=== PATIENT | male | born 1960 | race Caucasian/White ===

== ENCOUNTER 2022-12-23 06:54 | Day surgery (SDC) | payer MEDICARE, SELFPAY ==
[2022-12-23 07:16] VITALS: BP 132/72; PULSE 87; RESP 16; TEMP 36.7; O2SAT 97
--- NOTE | 2022-12-23 07:44 | W.PM.PROCNOT ---
Date of procedure: 12/23/22 Procedure: Left Lumbar 1/2 & 2/3 facet injection Preop diagnosis includes pain secondary to lumbar spondylosis, Postop diagnosis same Under fluoroscopic guidance Solution injected: 2millilitersMarcaine 0.25% Anesthesia :none Immediate complications none Time out process compliant After informed consent obtained from the patient placed in the Prone proposition . area was prepped and draped in a sterile fashion using betadine. 25 gauge spinal needle inserted over each of the above mentioned target areas . [place] were directed towards the target under fluoroscopic guidance . after encountering each of the targets , no indication of intravascular intraneuronal or intrathecal needle tip placement. Then 0 .5 to 1 Milliliter was injected at each level. Spindale removed postoperatively. patient transferred to recovery in stable condition to be discharged home after meeting criteria Surgeon: Luis Antonio Brewer
[2022-12-23 08:14] VITALS: BP 126/79; PULSE 88; RESP 20; O2SAT 92
[2022-12-23] MEDS: BUPIVACAINE HCL 0.25% PF 25 MG/10 ML VIAL INJ (08:17)
[2022-12-23 08:18] VITALS: BP 124/62; PULSE 89; O2SAT 95
== END 2022-12-23 08:20 | disposition home or self-care (01) ==
PROVIDERS: PCP Family Medicine; Visit Provider Anesthesiology Pain Medicine
DX: M47.816 Spondylosis without myelopathy or radiculopathy, lumbar region (principal)
CPT/HCPCS: 64493; 64494

== ENCOUNTER 2023-01-06 14:01 | Outpatient (OUT) | payer MEDICARE, SELFPAY ==
--- NOTE | 2023-01-06 17:58 | CONS_ITS ---
CONSULTATION DATE: ??01/06/2023 TO:? Socrates Valdovinos D.O. HISTORY:? Patient returns today complaining of pain in his left lower back area, described as 7/10 pain, sharp in character, increased with activities such as standing, walking and performing transitioning maneuvers.? Patient feels most comfortable in the semi-recumbent position.? Denies any change in bowel and bladder habits or new sensorimotor changes in the lower extremities. EXAM:? Notable for patient having no clinical radiculopathy or myelopathy involving the lower extremities.? Patient did have severe pain with lumbar facet loading maneuvers on the left side from L1 through L5, most severe at L1-2, L3- 4.? Patient has undergone two diagnostic medial branch blocks, corresponding to the L1-2, L3-4 levels, both offered him reduction in pain symptoms by at least 80-90% starting in the immediate post procedural period, lasting for several hours, with recurrence of pain back to his baseline.? RECOMMENDATIONS:? I have recommended proceeding with a rhizotomy using radiofrequency ablation of left L1-2, L3-4 corresponding levels.? I have also asked him to continue with the current dose of [place] 5 mg t.i.d.? He reports the medication does improve his quality of life, level of functioning and sleep pattern, and he denies any side effects with the use of the medication.? He appears to be using the medication appropriately without any acceleration. As part of providing excellent, safe, comprehensive care, the following was completed at our patient's visit: 1. A medication reconciliation and review to ensure accurate knowledge of current/active medications, including asking our patients to inform us about any wlqj-aaj-swrbchn medications or herbal remedies/nutritional supplements/alternative remedies. 2. A review to specifically ensure our patients have had annual screening for: elevated body mass index (BMI, see intake chart for exact total), tobacco use, screening for depression, and screening for unhealthy alcohol use.? When screening is concerning, patients are provided with education and the specific recommendation to discuss the concerning health issue and treatment options with their primary care provider. ASHLEY
== END 2023-01-06 14:02 | disposition home or self-care (01) ==
LOC: PM 14:02
PROVIDERS: PCP Family Medicine; Visit Provider Nurse Practitioner
DX: M54.50 Low back pain, unspecified (principal)
CPT/HCPCS: G0463

== ENCOUNTER 2023-02-23 08:25 | Day surgery (SDC) | payer MEDICARE, SELFPAY ==
[2023-02-23 08:42] VITALS: BP 109/65; PULSE 85; RESP 16; TEMP 36.2; O2SAT 94
[2023-02-23] MEDS: 0.9 % SODIUM CHLORIDE 500 ML 50 ML IV (08:52)
[2023-02-23] MEDS: LIDOCAINE HCL 2% 400 MG/20 ML MDV 15 ML INJ (09:41)
[2023-02-23] MEDS: BUPIVACAINE HCL 0.25% PF 25 MG/10 ML VIAL 4 ML INJ (09:41)
[2023-02-23] MEDS: TRIAMCINOLONE ACETONIDE 40 MG/ML VIAL INJ (09:42)
--- NOTE | 2023-02-23 09:48 | P.ON_ITS ---
Date of procedure: 02/23/23 Pre-op diagnosis: Lumbar spondylosis Post-op diagnosis: same as pre-op Procedure: Procedure: Left L1-2, L2-3 radiofrequency ablation Medications: Bupivcaine 0.25% 3cc, kenalog 40mg, lidocaine 1% 3cc The patient was seen and examined in the preoperative holding area.? The site was marked.? Written informed consent was obtained and placed on the chart.? The patient was brought to the medical procedure unit and placed in the prone position.? A timeout was completed verifying correct patient, procedure, positioning, and special requirements.? The skin overlying the target points, the designated medial branch, were prepped and draped in the usual sterile fashion.? The target point was achieved with a 20-gauge 15 cm with a 10 mm curved active tip radiofrequency cannula under direct fluoroscopic visualization.? The needle was inserted at level L1 on the left side. Needle tip position was confirmed with lateral fluoroscopic position.? Motor stimulation was carried out at 2 Hz up to 5 volts with the absence of extremity activity.? This was repeated at level L2, 3 on left side.?? Sensory stimulation was carried out.? Concordant pain was realized at the above- mentioned sites.? Then radiofrequency lesioning was carried out times 90 seconds at 80 degrees times 2 lesions at each level.? The radiofrequency probe was removed prior to cannula removal.? The above-mentioned injectate was placed in 1 mL increments.? The needle was removed.? Insertion sites were covered.? The patient was taken to the postoperative recovery area and monitored for an appropriate length of time before being found suitable for discharge in the company of a responsible adult. Anesthesia: Moderate Sedation Surgeon: Steven Uriarte Pathology: none sent Condition: stable Disposition: no change
[2023-02-23 09:50] VITALS: BP 122/72; PULSE 87; RESP 15; TEMP 36.9; O2SAT 97
[2023-02-23 09:53] VITALS: BP 115/77; PULSE 88; RESP 18; TEMP 36.9; O2SAT 97
== END 2023-02-23 10:15 | disposition home or self-care (01) ==
LOC: SURGOUT 08:27
PROVIDERS: PCP Family Medicine; Visit Provider Anesthesiology
DX: M47.816 Spondylosis without myelopathy or radiculopathy, lumbar region (principal)
CPT/HCPCS: 64635; 64636; J2704

== ENCOUNTER 2023-03-25 08:49 | Outpatient (OUT) | payer MEDICARE, SELFPAY ==
--- NOTE | 2023-03-25 08:55 | P.CN_ITS ---
Consult Note: HPI Data of Consult Patient: known to practice within the last 3 years Requesting Physician: Justyna Martinez NP Primary Care Provider: JOSE RAY Consult Narrative Reason for consult: Left L1-2, L2-3 radiofrequency ablation F/u Narrative: Richard Urena a pleasant 62 year old male presents for evaluation and management of chronic low back pain following back surgery. Recently underwent a left L1-2 RFA with no pain relief and functional improvement, feels his pain is worse now in low back near L4-5 fusion. Today rating pain 8/10. cc:: CC: Justyna Martinez NP Review of Systems ROS Status of ROS 10 or more systems reviewed and unremarkable except as noted in history and below Musculoskeletal Reports: back pain and joint pain PFSH PFSH Medical History Surgical History Meds Home Medications and Allergies Home Medications Medication Instructions Recorded Confirmed Type aspirin 81 mg tablet,delayed 81 mg PO DAILY 12/18/22 02/23/23 History release atorvastatin 80 mg tablet 80 mg PO QDAY 12/18/22 02/23/23 History baclofen 20 mg tablet 20 mg PO TID PRN spasms 12/18/22 02/23/23 History biotin 1 mg capsule 1 mg PO DAILY 12/18/22 02/23/23 History clopidogrel 75 mg tablet 75 mg PO QDAY 12/18/22 02/23/23 History dicyclomine 20 mg tablet 20 mg PO QID PRN abdominal pain 12/18/22 02/23/23 History doxazosin 4 mg tablet 4 mg PO QDAY 12/18/22 02/23/23 History duloxetine 30 mg capsule,delayed 90 mg PO TID 12/18/22 02/23/23 History release (Cymbalta) finasteride 5 mg tablet 5 mg PO QDAY 12/18/22 02/23/23 History fluticasone propionate 50 intranasal QAM 12/18/22 History mcg/actuation nasal spray,suspension furosemide 40 mg tablet 40 mg PO QDAY 12/18/22 02/23/23 History hydrocodone 5 mg-acetaminophen 325 tab PO TID PRN pain 12/18/22 History mg tablet metoprolol succinate 50 mg 50 mg PO QDAY 12/18/22 02/23/23 History tablet,extended release 24 hr multivitamin (Daily Multi-Vitamin 1 tab PO DAILY 12/18/22 02/23/23 History tablet) nortriptyline 50 mg capsule 50 mg PO QDAY 12/18/22 02/23/23 History omeprazole 40 mg capsule,delayed 40 mg PO QDAY 12/18/22 02/23/23 History release potassium chloride 20 mEq 20 meq PO QDAY 12/18/22 02/23/23 History tablet,extended release(part/cryst) (Klor-Con M) pregabalin 200 mg capsule 200 mg PO TID 12/18/22 02/23/23 History promethazine 25 mg tablet 12.5 mg PO QDAY 12/18/22 02/23/23 History quetiapine 25 mg tablet 25 mg PO BID 12/18/22 02/23/23 History telmisartan 80 mg tablet (Micardis) 80 mg PO DAILY 12/18/22 02/23/23 History testosterone cypionate 200 mg/mL 200 mg IM Q14D 12/18/22 02/23/23 History intramuscular oil valacyclovir 500 mg tablet 500 mg PO Q12H PRN unknown 12/18/22 02/23/23 History hydrocodone 5 mg-acetaminophen 325 1 tab PO TID PRN pain #80 tabs 02/25/23 Rx mg tablet hydrocodone 5 mg-acetaminophen 325 1 tab PO TID PRN pain #80 tabs 02/25/23 Rx mg tablet Allergies Allergy/AdvReac Type Severity Reaction Status Date / Time Penicillins Allergy Intermediate Swelling Verified 02/23/23 08:38 of Lip/Tongue/Throat latex Allergy Mild ITCHING Verified 02/23/23 08:38 Exam Constitutional Documenting provider has reviewed patient's vital signs: yes Common normals: no apparent distress, oriented x3, healthy appearing, alert and well nourished General appearance: cooperative HENMT Common normals: normocephalic, hearing grossly normal bilaterally and moist oral mucous membranes Head and scalp: normocephalic Eye Common normals: PERRL Pupil: PERRL Neck & C-Spine Common normals: full ROM General: normal visual inspection Chest Common normals: inspection of chest normal Respiratory Common normals: normal respiratory effort, no retractions and no use of accessor y muscles Back & Pelvis Lumbar spine/lower back: ROM limited, pain with ROM, paraspinal muscle tenderness and straight leg raise negative bilaterally Other: pain near fusion site and radiating into left buttock. no redness warmth. tender to touch Neuro Common normals: oriented x3, CN's II-XII intact bilaterally, moves all extremities, no focal motor deficits, no sensory deficits noted and deep tendon reflexes 2+ bilaterally Sensorium/orientation: alert Motor exam: strength 5/5 throughout and no movement abnormalities noted Other: no numbness tingling or weakness Psych Common normals: mental status grossly normal, thought process normal, cooperative, affect normal, speech normal and activity/motor behavior normal Speech: normal speech Thought process: normal thought process Results Additional Findings Additional findings: I have checked an [place] report on this patient today and there are no aberrancies noted in the prescribing history.?? A drug screen was completed and reviewed within the last year, and if there has not been a drug screen completed we ordered one today to monitor higher risk, state monitored pain medication use. As part of providing excellent, safe, comprehensive care, the following was completed at our patient's visit: 1. A medication reconciliation and review to ensure accurate knowledge of current/active medications, including asking our patients to inform us about any wcph-yrt-dhudyin medications or herbal remedies/nutritional supplements/alternative remedies. 2. A review to specifically ensure our patients have had annual screening for: elevated body mass index (BMI), tobacco use, screening for depression, and screening for unhealthy alcohol use. When screening is concerning, patients are provided with education and the specific recommendation to discuss the concerning health issue and treatment options with their primary care provider. Assessment and Plan Assessment and Plan (1) Low back pain: (2) Lumbar spondylosis: (3) Chronic, continuous use of opioids: Assessment and Plan: constipation discussed, encouraged stool softeners and increase in water intake I feel these medications are improving the patient's quality of life and allow them to tolerate activities of daily living as well as participate in recreational activity.? The patient does not report intolerable side effects. The patient is NOT opioid naive and non-pharmacologic and non-opioid treatment has failed to significantly relieve the patient's pain and improve functionality. The patient has a diagnosis that is related to a somatic or visceral pain etiology. ? ?? I reviewed with the patient the potential risks and side effects with the use of? opioid medications including but not limited to respiratory depression,? sedation, and even . I verified the patient has access to naloxone should? these effects occur. I advised the patient to avoid the use of any other? sedation substances including alcohol, THC, and benzodiazepines while? taking opioid medications due to the risk of compounding side effects and? detrimental outcomes. I reviewed the PAEDIATRIC THORACIC PHYSICIAN, pain treatment agreement, urine? drug screen, and opioid start talking forms. The patient was advised to let? their family know they had Naloxone in case they would need to administer? the medication.? ?? Plan increase duloxetine to 60mg BID continue current medications discussed opioids and nalaxone at today's visit continue working out, meeting with doctor about going back on ozempic for weight loss f/u 2 months to evaluate medication change and check effectiveness of RFA at that time, based on today's exam patients L2-3 RFA may have benefited him more than he can correlate due to other low back pain.
== END 2023-03-25 08:50 ==
LOC: PM 08:50
PROVIDERS: PCP Family Medicine; Visit Provider Nurse Practitioner
DX: M54.50 Low back pain, unspecified (principal); M47.816 Spondylosis without myelopathy or radiculopathy, lumbar region; Z79.891 Long term (current) use of opiate analgesic
CPT/HCPCS: G0463

== ENCOUNTER 2023-05-14 12:38 | Outpatient (OUT) | payer MEDICARE, SELFPAY ==
--- NOTE | 2023-05-14 13:06 | P.CN_ITS ---
Consult Note: HPI Data of Consult Patient: known to practice within the last 3 years Requesting Physician: Justyna Martinez NP Primary Care Provider: JOSE RAY Consult Narrative Reason for consult: f/u Narrative: Richard Urena a pleasant 62 year old male presents for evaluation and management of chronic low back pain with pain radiating into left leg. Describes as a sharp pinching sensation. Pain today 6.9/10. Patient reports since last visit he has had numerous night time episodes of bowel incontinence, no urinary incontinence. Patient has a GI f/u in June. Patient was given new script for duloxetine 60mg BID for chronic pain, but is unsure how much he is taking. cc:: CC: Justyna Martinez NP Review of Systems ROS Status of ROS 10 or more systems reviewed and unremarkable except as noted in history and below Musculoskeletal Reports: back pain PFSH PFSH Medical History Acid reflux ?K21.9 - Gastro-esophageal reflux disease without esophagitis (ICD-10) Anxiety ?F41.9 - Anxiety disorder, unspecified (ICD-10) Enlarged prostate ?N40.0 - Benign prostatic hyperplasia without lower urinary tract symptoms (ICD-10) Heartburn ?R12 - Heartburn (ICD-10) High cholesterol ?E78.00 - Pure hypercholesterolemia, unspecified (ICD-10) Hypertension ?I10 - Essential (primary) hypertension (ICD-10) Kidney stone ?N20.0 - Calculus of kidney (ICD-10) Low back pain ?M54.50 - Low back pain, unspecified (ICD-10) Numbness and tingling ?R20.0 - Anesthesia of skin (ICD-10) ?R20.2 - Paresthesia of skin (ICD-10) Sleep apnea ?G47.30 - Sleep apnea, unspecified (ICD-10) Stroke ?I63.9 - Cerebral infarction, unspecified (ICD-10) Surgical History Hx of total knee arthroplasty ?Z96.659 - Presence of unspecified artificial knee joint (ICD-10) S/P carpal tunnel release ?Z98.890 - Other specified postprocedural states (ICD-10) S/P lumbar spine operation ?Z98.890 - Other specified postprocedural states (ICD-10) S/P shoulder replacement ?Z96.619 - Presence of unspecified artificial shoulder joint (ICD-10) Meds Home Medications and Allergies Home Medications Medication Instructions Recorded Confirmed Type aspirin 81 mg tablet,delayed 81 mg PO DAILY 12/18/22 02/23/23 History release atorvastatin 80 mg tablet 80 mg PO QDAY 12/18/22 02/23/23 History baclofen 20 mg tablet 20 mg PO TID PRN spasms 12/18/22 02/23/23 History biotin 1 mg capsule 1 mg PO DAILY 12/18/22 02/23/23 History clopidogrel 75 mg tablet 75 mg PO QDAY 12/18/22 02/23/23 History dicyclomine 20 mg tablet 20 mg PO QID PRN abdominal pain 12/18/22 02/23/23 History doxazosin 4 mg tablet 4 mg PO QDAY 12/18/22 02/23/23 History duloxetine 30 mg capsule,delayed 60 mg PO BID 12/18/22 03/25/23 History release (Cymbalta) finasteride 5 mg tablet 5 mg PO QDAY 12/18/22 02/23/23 History fluticasone propionate 50 intranasal QAM 12/18/22 History mcg/actuation nasal spray,suspension furosemide 40 mg tablet 40 mg PO QDAY 12/18/22 02/23/23 History hydrocodone 5 mg-acetaminophen 325 tab PO TID PRN pain 12/18/22 History mg tablet metoprolol succinate 50 mg 50 mg PO QDAY 12/18/22 02/23/23 History tablet,extended release 24 hr multivitamin (Daily Multi-Vitamin 1 tab PO DAILY 12/18/22 02/23/23 History tablet) nortriptyline 50 mg capsule 50 mg PO QDAY 12/18/22 02/23/23 History omeprazole 40 mg capsule,delayed 40 mg PO QDAY 12/18/22 02/23/23 History release potassium chloride 20 mEq 20 meq PO QDAY 12/18/22 02/23/23 History tablet,extended release(part/cryst) (Klor-Con M) pregabalin 200 mg capsule 200 mg PO TID 12/18/22 02/23/23 History promethazine 25 mg tablet 12.5 mg PO QDAY 12/18/22 02/23/23 History quetiapine 25 mg tablet 25 mg PO BID 12/18/22 02/23/23 History telmisartan 80 mg tablet (Micardis) 80 mg PO DAILY 12/18/22 02/23/23 History testosterone cypionate 200 mg/mL 200 mg IM Q14D 12/18/22 02/23/23 History intramuscular oil valacyclovir 500 mg tablet 500 mg PO Q12H PRN unknown 12/18/22 02/23/23 History hydrocodone 5 mg-acetaminophen 325 1 tab PO TID PRN pain #80 tabs 02/25/23 Rx mg tablet hydrocodone 5 mg-acetaminophen 325 1 tab PO TID PRN pain #80 tabs 02/25/23 Rx mg tablet hydrocodone 5 mg-acetaminophen 325 1 tab PO TID PRN pain #80 tabs 03/26/23 Rx mg tablet hydrocodone 5 mg-acetaminophen 325 1 tab PO TID PRN pain #80 tabs 03/26/23 Rx mg tablet hydrocodone 5 mg-acetaminophen 325 1 tab PO TID PRN pain #80 tabs 05/01/23 Rx mg tablet hydrocodone 5 mg-acetaminophen 325 1 tab PO TID PRN pain #80 tabs 05/01/23 Rx mg tablet Allergies Allergy/AdvReac Type Severity Reaction Status Date / Time Penicillins Allergy Intermediate Swelling Verified 02/23/23 08:38 of Lip/Tongue/Throat latex Allergy Mild ITCHING Verified 02/23/23 08:38 Exam Constitutional Documenting provider has reviewed patient's vital signs: yes Common normals: no apparent distress, oriented x3, healthy appearing, alert and well nourished General appearance: cooperative [facility] [place] Common normals: normocephalic, hearing grossly normal bilaterally and moist oral mucous membranes Head and scalp: normocephalic Eye Common normals: PERRL Pupil: PERRL Neck & C-Spine Common normals: full ROM General: normal visual inspection Chest Common normals: inspection of chest normal Respiratory Common normals: normal respiratory effort, no retractions and no use of accessory muscles Back & Pelvis Lumbar spine/lower back: ROM limited, pain with ROM, paraspinal muscle tenderness and straight leg raise negative bilaterally Other: pain near fusion site and radiating into left buttock. no redness warmth. tender to touch Neuro Common normals: oriented x3, CN's II-XII intact bilaterally, moves all extremities, no focal motor deficits, no sensory deficits noted and deep tendon reflexes 2+ bilaterally Sensorium/orientation: alert Motor exam: strength 5/5 throughout and no movement abnormalities noted Other: no numbness tingling or weakness Psych Common normals: mental status grossly normal, thought process normal, cooperative, affect normal, speech normal and activity/motor behavior normal Speech: normal speech Thought process: normal thought process Assessment and Plan Assessment and Plan (1) Lumbar spondylosis: (2) Chronic, continuous use of opioids: (3) Obesity: (4) Lumbar radiculopathy: (5) Bowel incontinence: Plan Lumbar Spine MRI without contrast pt to call to discuss medication regimen, will decrease duloxetine to see if this is related to GI symptoms. unfortunately injection therapy has not provided patient with pain relief and he would like to discuss SCS. Briefly discussed a trial and the SCS device, handout provided pt called and reported he is taking 60mg BID, instructed to decrease to 90mg daily for two weeks then down to 60mg daily. see if GI symptoms improve
== END 2023-05-14 12:39 | disposition home or self-care (01) ==
LOC: PM 12:38
PROVIDERS: PCP Family Medicine; Visit Provider Nurse Practitioner
DX: M47.816 Spondylosis without myelopathy or radiculopathy, lumbar region (principal); Z79.891 Long term (current) use of opiate analgesic; E66.9 Obesity, unspecified; M54.16 Radiculopathy, lumbar region; R15.9 Full incontinence of feces
CPT/HCPCS: G0463

== ENCOUNTER 2023-06-04 09:08 | Outpatient (OUT) | payer MEDICARE, SELFPAY ==
--- NOTE | 2023-06-04 09:22 | P.CN_ITS ---
Consult Note: HPI Data of Consult Patient: known to practice within the last 3 years Requesting Physician: Justyna Martinez NP Primary Care Provider: JOSE RAY Consult Narrative Reason for consult: MRI f/u Narrative: Richard Ojeda a pleasant 63 year old male presents for evaluation and management of chronic low back pain post lumbar fusion and lumbar surgery. Patient has had MRIs of lumbar spine with and without contrast since last appointment and is here to review results. MRI reviewed with pt, mild bulging discs and mild to moderate facet arthropathy. Patient continues to have low back pain with intermittent radiculopathy to right lower leg. Patient benefitting from baclofen, norco, lyrica, duloxetine, nortriptyline. Pain today 6./10, active in HEP/PT. No new recent loss of bowel or bladder. cc:: CC: Justyna Martinez NP Review of Systems 2 ROS0 Status of ROS 10 or more systems reviewed and unremark able except as noted in history and below Musculoskeletal Reports: back pain PFSH PFSH Medical History Acid reflux ?K21.9 - Gastro-esophageal reflux disease without esophagitis (ICD-10) Anxiety ?F41.9 - Anxiety disorder, unspecified (ICD-10) Enlarged prostate ?N40.0 - Benign prostatic hyperplasia without lower urinary tract symptoms (ICD-10) Heartburn ?R12 - Heartburn (ICD-10) High cholesterol ?E78.00 - Pure hypercholesterolemia, unspecified (ICD-10) Hypertension ?I10 - Essential (primary) hypertension (ICD-10) Kidney stone ?N20.0 - Calculus of kidney (ICD-10) Low back pain ?M54.50 - Low back pain, unspecified (ICD-10) Numbness and tingling ?R20.0 - Anesthesia of skin (ICD-10) ?R20.2 - Paresthesia of skin (ICD-10) Sleep apnea ?G47.30 - Sleep apnea, unspecified (ICD-10) Stroke ?I63.9 - Cerebral infarction, unspecified (ICD-10) Surgical History S/P lumbar spine operation ?Z98.890 - Other specified postprocedural states (ICD-10) S/P shoulder replacement ?Z96.619 - Presence of unspecified artificial shoulder joint (ICD-10) S/P carpal tunnel release ?Z98.890 - Other specified postprocedural states (ICD-10) Hx of total knee arthroplasty ?Z96.659 - Presence of unspecified artificial knee joint (ICD-10) Meds Home Medications and Allergies Home Medications Medication Instructions Recorded Confirmed Type aspirin 81 mg tablet,delayed 81 mg PO DAILY 12/18/22 02/23/23 History release atorvastatin 80 mg tablet 80 mg PO QDAY 12/18/22 02/23/23 History baclofen 20 mg tablet 20 mg PO TID PRN spasms 12/18/22 02/23/23 History biotin 1 mg capsule 1 mg PO DAILY 12/18/22 02/23/23 History clopidogrel 75 mg tablet 75 mg PO QDAY 12/18/22 02/23/23 History dicyclomine 20 mg tablet 20 mg PO QID PRN abdominal pain 12/18/22 02/23/23 History doxazosin 4 mg tablet 4 mg PO QDAY 12/18/22 02/23/23 History duloxetine 30 mg capsule,delayed 60 mg PO BID 12/18/22 03/25/23 History release (Cymbalta) finasteride 5 mg tablet 5 mg PO QDAY 12/18/22 02/23/23 History fluticasone propionate 50 intranasal QAM 12/18/22 History mcg/actuation nasal spray,suspension furosemide 40 mg tablet 40 mg PO QDAY 12/18/22 02/23/23 History hydrocodone 5 mg-acetaminophen 325 tab PO TID PRN pain 12/18/22 History mg tablet metoprolol succinate 50 mg 50 mg PO QDAY 12/18/22 02/23/23 History tablet,extended release 24 hr multivitamin (Daily Multi-Vitamin 1 tab PO DAILY 12/18/22 02/23/23 History tablet) nortriptyline 50 mg capsule 50 mg PO QDAY 12/18/22 02/23/23 History omeprazole 40 mg capsule,delayed 40 mg PO QDAY 12/18/22 02/23/23 History release potassium chloride 20 mEq 20 meq PO QDAY 12/18/22 02/23/23 History tablet,extended release(part/cryst) (Klor-Con M) pregabalin 200 mg capsule 200 mg PO TID 12/18/22 02/23/23 History promethazine 25 mg tablet 12.5 mg PO QDAY 12/18/22 02/23/23 History quetiapine 25 mg tablet 25 mg PO BID 12/18/22 02/23/23 History telmisartan 80 mg tablet (Micardis) 80 mg PO DAILY 12/18/22 02/23/23 History testosterone cypionate 200 mg/mL 200 mg IM Q14D 12/18/22 02/23/23 History intramuscular oil valacyclovir 500 mg tablet 500 mg PO Q12H PRN unknown 12/18/22 02/23/23 History hydrocodone 5 mg-acetaminophen 325 1 tab PO TID PRN pain #80 tabs 02/25/23 Rx mg tablet hydrocodone 5 mg-acetaminophen 325 1 tab PO TID PRN pain #80 tabs 02/25/23 Rx mg tablet hydrocodone 5 mg-acetaminophen 325 1 tab PO TID PRN pain #80 tabs 03/26/23 Rx mg tablet hydrocodone 5 mg-acetaminophen 325 1 tab PO TID PRN pain #80 tabs 03/26/23 Rx mg tablet hydrocodone 5 mg-acetaminophen 325 1 tab PO TID PRN pain #80 tabs 05/01/23 Rx mg tablet hydrocodone 5 mg-acetaminophen 325 1 tab PO TID PRN pain #80 tabs 05/01/23 Rx mg tablet hydrocodone 5 mg-acetaminophen 325 1 tab PO TID PRN pain #80 tabs 05/27/23 Rx mg tablet Allergies Allergy/AdvReac Type Severity Reaction Status Date / Time Penicillins Allergy Intermediate Swelling Verified 02/23/23 08:38 of Lip/Tongue/Throat latex Allergy Mild ITCHING Verified 02/23/23 08:38 Exam Constitutional Documenting provider has reviewed patient's vital signs: yes Common normals: no apparent distress, oriented x3, healthy appearing, alert and well nourished General appearance: cooperative HENMT Common normals: normocephalic, hearing grossly normal bilaterally and moist oral mucous membranes Head and scalp: normocephalic Eye Common normals: PERRL Pupil: PERRL Neck & C-Spine Common normals: full ROM General: normal visual inspection Chest Common normals: inspection of chest normal Respiratory Common normals: normal respiratory effort, no retractions and no use of accessory muscles Back & Pelvis Lumbar spine/lower back: ROM limited, pain with ROM, paraspinal muscle tenderness and straight leg raise negative bilaterally Other: pain near fusion site and radiating into left buttock. no redness warmth. tender to touch no radiculopathy on exam, pt reports radiculopathy to right foot Back image (male): 2 1. tender to touch, reports occasional hot sensation Neuro Common normals: oriented x3, CN's II-XII intact bilaterally, moves all extremities, no focal motor deficits, no sensory deficits noted and deep tendon reflexes 2+ bilaterally Sensorium/orientation: alert Motor exam: strength 5/5 throughout and no movement abnormalities noted Other: no numbness tingling or weakness Psych Common normals: mental status grossly normal, thought process normal, cooperative, affect normal, speech normal and activity/motor behavior normal Speech: normal speech Thought process: normal thought process Results Additional Findings Additional findings: I have checked an [place] report on this patient today and there are no aberrancies noted in the prescribing history.?? A drug screen was completed and reviewed within the last year, and if there has not been a drug screen completed we ordered one today to monitor higher risk, state monitored pain medication use. As part of providing excellent, safe, comprehensive care, the following was completed at our patient's visit: 1. A medication reconciliation and review to ensure accurate knowledge of current/active medications, including asking our patients to inform us about any [id number] medications or herbal remedies/nutritional supplements/alternative remedies. 2. A review to specifically ensure our patients have had annual screening for: elevated body mass index (BMI), tobacco use, screening for depression, and screening for unhealthy alcohol use. When screening is concerning, patients are provided with education and the specific recommendation to discuss the concerning health issue and treatment options with their primary care provider. Assessment and Plan Assessment and Plan (1) Lumbar radiculopathy: (2) Lumbar spondylosis: (3) Chronic, continuous use of opioids: (4) Obesity: (5) Myofascial pain: Plan decrease duloxetine to 60mg daily continue norco 5/325mg TID PRN continue lyrica and nortriptyline continue PT, discussed stretching for piriformis muscle group as he has previously benefitted from this f/u 3 months for medication management
== END 2023-06-04 09:09 | disposition home or self-care (01) ==
LOC: PM 09:09
PROVIDERS: PCP Family Medicine; Visit Provider Nurse Practitioner
DX: M54.16 Radiculopathy, lumbar region (principal); M47.816 Spondylosis without myelopathy or radiculopathy, lumbar region; Z79.891 Long term (current) use of opiate analgesic; E66.9 Obesity, unspecified; M79.18 Myalgia, other site
CPT/HCPCS: G0463

== ENCOUNTER 2023-09-10 12:20 | Outpatient (OUT) | payer MEDICARE, SELFPAY ==
--- NOTE | 2023-09-10 12:46 | P.CN_ITS ---
Consult Note: HPI Data of Consult Patient: known to practice within the last 3 years Requesting Physician: Justyna Martinez NP Primary Care Provider: JOSE RAY Consult Narrative Reason for consult: f/u Narrative: Richard Urena a pleasant 63 year old male presents for evaluation and management of chronic low back pain with radiculopathy. Pain today 7/10 increases to 10/10 with activity standing walking and lifting, improves with sitting. Patient finding mild to moderate benefit from current medication regimen. Pt following with GI for ongoing diarrhea and bowel incontinence, they recommended creon but patient cannot afford. Patient was previously given education on spinal cord stimulator and is not interested. cc:: CC: Justyna Martinez NP Review of Systems ROS Status of ROS 10 or more systems reviewed and unremark able except as noted in history and below Musculoskeletal Reports: back pain PFSH PFSH Medical History Heartburn ?R12 - Heartburn (ICD-10) Low back pain ?M54.50 - Low back pain, unspecified (ICD-10) Numbness and tingling ?R20.0 - Anesthesia of skin (ICD-10) ?R20.2 - Paresthesia of skin (ICD-10) Anxiety ?F41.9 - Anxiety disorder, unspecified (ICD-10) Stroke ?I63.9 - Cerebral infarction, unspecified (ICD-10) Acid reflux ?K21.9 - Gastro-esophageal reflux disease without esophagitis (ICD-10) Enlarged prostate ?N40.0 - Benign prostatic hyperplasia without lower urinary tract symptoms (ICD-10) Kidney stone ?N20.0 - Calculus of kidney (ICD-10) Sleep apnea ?G47.30 - Sleep apnea, unspecified (ICD-10) High cholesterol ?E78.00 - Pure hypercholesterolemia, unspecified (ICD-10) Hypertension ?I10 - Essential (primary) hypertension (ICD-10) Surgical History S/P lumbar spine operation ?Z98.890 - Other specified postprocedural states (ICD-10) S/P shoulder replacement ?Z96.619 - Presence of unspecified artificial shoulder joint (ICD-10) S/P carpal tunnel release ?Z98.890 - Other specified postprocedural states (ICD-10) Hx of total knee arthroplasty ?Z96.659 - Presence of unspecified artificial knee joint (ICD-10) Meds Home Medications and Allergies Home Medications Medication Instructions Recorded Confirmed Type aspirin 81 mg tablet,delayed 81 mg PO DAILY 12/18/22 02/23/23 History release atorvastatin 80 mg tablet 80 mg PO QDAY 12/18/22 02/23/23 History baclofen 20 mg tablet 20 mg PO TID PRN spasms 12/18/22 02/23/23 History biotin 1 mg capsule 1 mg PO DAILY 12/18/22 02/23/23 History clopidogrel 75 mg tablet 75 mg PO QDAY 12/18/22 02/23/23 History dicyclomine 20 mg tablet 20 mg PO QID PRN abdominal pain 12/18/22 02/23/23 History doxazosin 4 mg tablet 4 mg PO QDAY 12/18/22 02/23/23 History duloxetine 30 mg capsule,delayed 60 mg PO BID 12/18/22 03/25/23 History release (Cymbalta) finasteride 5 mg tablet 5 mg PO QDAY 12/18/22 02/23/23 History fluticasone propionate 50 intranasal QAM 12/18/22 History mcg/actuation nasal spray,suspension furosemide 40 mg tablet 40 mg PO QDAY 12/18/22 02/23/23 History hydrocodone 5 mg-acetaminophen 325 tab PO TID PRN pain 12/18/22 History mg tablet metoprolol succinate 50 mg 50 mg PO QDAY 12/18/22 02/23/23 History tablet,extended release 24 hr multivitamin (Daily Multi-Vitamin 1 tab PO DAILY 12/18/22 02/23/23 History tablet) nortriptyline 50 mg capsule 50 mg PO QDAY 12/18/22 02/23/23 History omeprazole 40 mg capsule,delayed 40 mg PO QDAY 12/18/22 02/23/23 History release potassium chloride 20 mEq 20 meq PO QDAY 12/18/22 02/23/23 History tablet,extended release(part/cryst) (Klor-Con M) pregabalin 200 mg capsule 200 mg PO TID 12/18/22 02/23/23 History promethazine 25 mg tablet 12.5 mg PO QDAY 12/18/22 02/23/23 History quetiapine 25 mg tablet 25 mg PO BID 12/18/22 02/23/23 History telmisartan 80 mg tablet (Micardis) 80 mg PO DAILY 12/18/22 02/23/23 History testosterone cypionate 200 mg/mL 200 mg IM Q14D 12/18/22 02/23/23 History intramuscular oil valacyclovir 500 mg tablet 500 mg PO Q12H PRN unknown 12/18/22 02/23/23 History hydrocodone 5 mg-acetaminophen 325 1 tab PO TID PRN pain #80 tabs 02/25/23 Rx mg tablet hydrocodone 5 mg-acetaminophen 325 1 tab PO TID PRN pain #80 tabs 02/25/23 Rx mg tablet hydrocodone 5 mg-acetaminophen 325 1 tab PO TID PRN pain #80 tabs 03/26/23 Rx mg tablet hydrocodone 5 mg-acetaminophen 325 1 tab PO TID PRN pain #80 tabs 03/26/23 Rx mg tablet hydrocodone 5 mg-acetaminophen 325 1 tab PO TID PRN pain #80 tabs 05/01/23 Rx mg tablet hydrocodone 5 mg-acetaminophen 325 1 tab PO TID PRN pain #80 tabs 05/01/23 Rx mg tablet hydrocodone 5 mg-acetaminophen 325 1 tab PO TID PRN pain #80 tabs 05/27/23 Rx mg tablet hydrocodone 5 mg-acetaminophen 325 1 tab PO TID PRN pain #80 tabs 07/06/23 Rx mg tablet hydrocodone 5 mg-acetaminophen 325 1 tab PO TID PRN pain #80 tabs 07/30/23 Rx mg tablet hydrocodone 5 mg-acetaminophen 325 1 tab PO TID PRN pain #80 tabs 08/27/23 Rx mg tablet Allergies Allergy/AdvReac Type Severity Reaction Status Date / Time Penicillins Allergy Intermediate Swelling Verified 02/23/23 08:38 of Lip/Tongue/Throat latex Allergy Mild ITCHING Verified 02/23/23 08:38 Exam Constitutional Documenting provider has reviewed patient's vital signs: yes Common normals: no apparent distress, oriented x3, healthy appearing, alert and well nourished General appearance: cooperative HENNY Common normals: normocephalic, hearing grossly normal bilaterally and moist oral mucous membranes Head and scalp: normocephalic Eye Common normals: PERRL Pupil: PERRL Neck & C-Spine Common normals: full ROM General: normal visual inspection Chest Common normals: inspection of chest normal Respiratory Common normals: normal respiratory effort, no retractions and no use of accessory muscles Back & Pelvis Lumbar spine/lower back: ROM limited, pain with ROM, paraspinal muscle tenderness and straight leg raise negative bilaterally Other: pain near fusion site and radiating into left buttock. no redness warmth. tender to touch decreased sensation on bilateral L5-S1 dermatomal patterns strength 5/5 in BLE reports numbness and tingling to left foot greater than right Extremity Common normals: normal to inspection and full ROM Neuro Common normals: oriented x3, CN's II-XII intact bilaterally, moves all extremities, no focal motor deficits, no sensory deficits noted and deep tendon reflexes 2+ bilaterally Sensorium/orientation: alert Motor exam: strength 5/5 throughout and no movement abnormalities noted Other: no numbness tingling or weakness Psych Common normals: mental status grossly normal, thought process normal, cooperative, affect normal, speech normal and activity/motor behavior normal Speech: normal speech Thought process: normal thought process Results Additional Findings Additional findings: If on a controlled substance or opioids, I have checked an [place] report on this patient and there are no aberrancies noted in the prescribing history.??If on a controlled substance or opioid a drug screen was completed and reviewed within the last year, and if there has not been a drug screen completed we ordered one today to monitor higher risk, state monitored pain medication use. As part of providing excellent, safe, comprehensive care, the following was completed at our patient's visit: 1. A medication reconciliation and review to ensure accurate knowledge of current/active medications, including asking our patients to inform us about any [id number] medications or herbal remedies/nutritional supplements/alternative remedies. 2. A review to specifically ensure our patients have had annual screening for screening for depression, screening for tobacco use, and screening for unhealthy alcohol use. For concerning screenings had a discussion with the patient, provided patient education, and recommended follow-up with primary care provider when appropriate. If patient noted with a risk of falling, they received education on strength, gait, and balance training to prevent future risk of falling. Assessment and Plan Assessment and Plan (1) Lumbar radiculopathy: (2) Lumbar spondylosis: (3) Chronic, continuous use of opioids: (4) Obesity: (5) Myofascial pain: Plan bilateral L5-S1 TFESI with Dr Uriarte under fluoroscopy, risks vs benefits discussed decrease duloxetine to 30mg daily continue norco 5/325mg TID PRN moderate to severe pain continue lyrica and nortriptyline continue PT finding mild benefit f/u after injections
== END 2023-09-10 12:21 | disposition home or self-care (01) ==
LOC: PM 12:21
PROVIDERS: PCP Family Medicine; Visit Provider Nurse Practitioner
DX: M54.16 Radiculopathy, lumbar region (principal); M47.816 Spondylosis without myelopathy or radiculopathy, lumbar region; Z79.891 Long term (current) use of opiate analgesic; E66.9 Obesity, unspecified; M79.18 Myalgia, other site
CPT/HCPCS: G0463

== ENCOUNTER 2023-09-21 07:09 | Day surgery (SDC) | payer MEDICARE, SELFPAY ==
--- OUTSIDE RECORDS SUMMARY | 2023-09-21 07:16 | XMS_ITS | CCD ---
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 Name Role Phone JOSE RAY Primary Care Physician Ariana Lutz Unavailable Unavailable ObJose chen Primary Care Provider [phone] Jose Ray Unavailable ObJose chen Primary Care Provider ObJose chen L Unavailable Unavailable Unavailable Santos Fernanda Unavailable ObgustaborDO Garcia Primary Care Provider [phone] MD Yobany Nelson Attending Provider NO FAMILY, PHYSICIAN Primary Care Provider Unava MANISH Meza Attending Provider ROSARIO Graham Fernanda Other Provider ObDO Jose chen Other Provider MD Loyda Steele Attending Provider MD Rosey Dubose Other Provider Jose Ray Primary Care Provider [phone] DO Jose Ray Primary Care Provider LOYDA STEELE Admitting Unavailable LOYDA STEELE Attending Unavailable JOSE RAY Primary Care Unavailable MD DILLON, ELSY Consulting Unavaila ble JOSE RAY Primary Care Unavailable LOYDA STEELE Admitting Unavailable LOYDA STEELE Attending Unavailable JOSE RAY Primary Care Unavailable KUMAR MOCK Consulting Unavailable Xavi Smith Unavailable ROSARIO Graham Other Provider Obgustabor, DO Jose Primary Care Provider [phone] Obgustabor, DO Jose Other Provider MD Loyda Steele Attending Provider MD Rosey Dubose Other Provider MANISH Beltran Attending Provider MANISH Jameson Emergency Provider [phone] MD Cathy Zavala Admit Provider MD Cathy Zavala Attending Provider Fabiola Montemayor Other Provider Unavailable DO Christine Bryson Other Provider MD Se Feliz Other Provider DO Cornel Carson Other Provider LV Clark- Marci Other Provider DO Ortega Haskins Other Provider ANITA Huerta Other Provider MD Xavi Smith S Other Provider DO Ortega Haskins Attending Provider OBERER, JOSE PARAS Primary Care Unavailable OLIVERIO LOZA Referring Unavailable D'IMANI, CHRISTINE Referring Unavailable OBERER, JOSE PARAS Primary Care Unavailable OBERER, JOSE PARAS Primary Care Unavailable LOYDA STEELE Referring Unavailable OBERER, JOSE PARAS Primary Care Unavailable GWENDOLYN SPIVEY Referring Unavailable OBERER, JOSE PARAS Primary Care Unavailable CHRISTY CAT Referring Unavailable D'IMANI, CHRISTINE Referring Unavailable OBERER, JOSE PARAS Primary Care Unavailable OBERER, JOSE PARAS Primary Care Unavailable GUILLAUME BHANDARI Admitting Unavailable OBERER, JOSE PARAS Primary Care Unavailable GUILLAUME BHANDARI Referring Unavailable GUILLAUME BHANDARI Attending Unavailable Raquel Montague Unavailable Oberer, Jose Crain Primary Care Provider Oberer, DO Jose Primary Care Provider [phone] DO Rafael Holley Attending Provider MD Loyda Steele Attending Provider MD Loyda Steele Other Provider Oberer, Jose Crain Primary Care Unavailable Dr. Danisha Bran Attending Unavaila ble Andrzej, Dr. Gonzalez Referring Unavaila ble Oberer, Jose Crain Primary Care Unavailable Oberer, Jose Crain Primary Care Unavailable Andrzej, Dr. Gonzalez Attending Unavaila ble Oberer, DO Jose Primary Care Provider Oberer, DO Garcia Attending Provider [phone] Alise Renteria Unavailable Oberer, DO Jose Primary Care Provider DO Rafael Holley Attending Provider [phone] Oberer, DO Garcia Attending Provider [phone] DO Alejandro Loo Emergency Provider Rafael Holbrook Unavailable Oberer, DO Garcia Primary Care Provider Olvin Andino Unavailable MD Se Feliz Referring Provider [phone] OBDIANE, DR GARCIA Primary Care Unavailable OCHOA ., DR YANELIS Pierce Attending Unavailable OCHOA ., DR YANELIS Pierce Admitting Unavailable HOUSTON . MARY Consulting Unavailable OBEREMegan, DR GARCIA Primary Care Unavailable LAKSHMIPATHY ., NARENDISAIAHATH Attending Maddi vailable LAKSHMIPATHY ., NARENDRANATH Consulting Maddi vailable LAKSHMIPATHY ., NARENDRANATH Admitting Maddi vailable ZIDR SE MAHAN Consulting Unavailable OBERER, DR GARCIA Primary Care Unavailable LAKSHMIPATHY ., NARJUICE Attending Maddi vailable LAKSHMIPATHY ., NARENDRANATH Admitting Maddi vailable LAKSHMIPATHY ., NARENDRANATH Consulting Maddi vailable OBERER, DR GARCIA Primary Care Unavailable LAKSHMIPATHY ., NARENDRANATH Attending Maddi vailable LAKSHMIPATHY ., NARENDRANATH Consulting Maddi vailable LAKSHMIPATHY ., NARENDRANATH Admitting Maddi vailable OBERER, DR GARCIA Primary Care Unavailable LAKSHMIPATHY ., NARENDRANATH Attending Maddi vailable LAKSHMIPATHY ., NARENDRANATH Consulting Maddi vailable LAKSHMIPATHY ., NARENDRANATH Admitting Maddi vailable OBERER, DR GARCIA Primary Care Unavailable TJ ., DR YANELIS Pierce Attending Unavailable OCHOA ., DR YANELIS Pierce Consulting Unavailable OCHOA ., DR YANELIS Pierce Admitting Unavailable Oberer, DO Garcia Primary Care Provider [phone] DO Jose Ray Attending Provider DO Olvin Andino Attending Provider MD Rafael Holbrook Attending Provider HABBOUB, LOYDA Referring Unavailable OBERER, JOSE PARAS Primary Care Unavailable HABBOUB, LOYDA Attending Unavailable HABBOUB, LOYDA Referring Unavailable OBERER, JOSE PARAS Primary Care Unavailable HABBOUB, LOYDA Attending Unavailable OBERER, JOSE PARAS Referring Unavailable OBERER, JOSE PARAS Primary Care Unavailable HABBOUB, LOYDA Attending Unavailable HABBOUB, LOYDA Attending Unavailable OBERER, JOSE PARAS Primary Care Unavailable HABBOUB, LOYDA Referring Unavailable OBERER, JOSE PARAS Referring Unavailable OBERER, JOSE PARAS Primary Care Unavailable CHRISTY CAT Attending Unavailable OBERER, JOSE PARAS Referring Unavailable OBERER, JOSE PARAS Primary Care Unavailable CHRISTY CAT Attending Unavailable STRINE, EFFIE Referring Unavailable OBERER, JOSE PARAS Primary Care Unavailable OBERER, JOSE PARAS Primary Care Unavailable STRINE, EFFIE Attending Unavailable OBERER, JOSE PARAS Referring Unavailable HABBOUB, LOYDA Referring Unavailable OBERER, JOSE PARAS Primary Care Unavailable HABBOUB, LOYDA Attending Unavailable OBERER, JOSE PARAS Primary Care Unavailable OBERER, JOSE PARAS Referring Unavailable OBERER, JOSE PARAS Primary Care Unavailable EFFIE BELTRAN Attending Unavailable Oberer, DO Jose Primary Care Provider [phone] Oberer, DO Jose Attending Provider [phone] ROSARIO Graham Attending Provider [phone] MD Rosey Dubose Attending Provider [phone] NATANAEL ARNOLD Referring Unavailable NATANAEL ARNOLD Attending Unavailable NATANAEL ARNOLD Admitting Unavailable John Foster Unavailable Oberer, DO Jose Primary Care Provider [phone] Oberer, DO Jose Attending Provider [phone] MD John Foster Attending Provider [phone] Oberer, DO Jose Primary Care Provider Oberer, DO Jose Attending Provider [phone] Oberer DO, Jose Paras Primary Care Provider DANISHA BRAN Attending Unavailable OBERER, JOSE PARAS Primary Care Unavailable Oberer, Jose Admitting Unavailable Oberer, Jose Attending Unavailable Oberer, Jose Primary Care Unavailable Oberer, Jose Admitting Unavailable Se Feliz Referring Unavailable Oberer, Jose Attending Unavailable Oberer, Jose Primary Care Unavailable Oberer, Jose Attending Unavailable Oberer, Jose Primary Care Unavailable Oberer, Jose Admitting Unavailable Olvin Andino Admitting Unavailable Olvin Andino Attending Unavailable Oberer, Jose Primary Care Unavailable Yusef, Rafael L Admitting Unavailable Yusef, Rafael L Attending Unavailable Oberer, Jose Primary Care Unavailable Rosey Dubose Admitting Unavailable Rosey Dubose Attending Unavailable Oberer, Jose Primary Care Unavailable Oberer, Jose Attending Unavailable Oberer, Jose Primary Care Unavailable Oberer, Jose Admitting Unavailable John Foster Admitting Unavailabl e Oberer, Jose Primary Care Unavailable John Foster Attending Unavailabl e Oberer, Jose Primary Care Unavailable Bordner, Helena C Admitting Unavailable Helena Posey C Attending Unavailable Oberer, Jose Primary Care Unavailable John Foster Attending UnavailJohn Ledesma Admitting Unavailabl e Oberer, Jose Primary Care Unavailable John Foster Admitting UnavailJohn Ledesma Attending Unavailabl e Oberer, Jose Primary Care Unavailable KeAlejandro anderson A Admitting Unavailable Kemonica Alejandro A Attending Unavailable Oberer, Jose Admitting Unavailable Oberer, Jose Attending Unavailable Oberer, Jose Primary Care Unavailable Allergies Allergy Classification Reported Allergen(s) Allergy Type Date of Onset Reaction(s) Facility (20 sources) Latex; Translations: [Latex] Drug allergy 7 Rash, Unknown [facility] Other (20 sources) Penicillins; Translations: [penicillins] Drug allergy 4 Pharyngeal swelling (finding), Anaphylaxis, Swelling [facility] (20 sources) busPIRone Drug Allergy headache [facility] Other (20 sources) Penicillin Drug Allergy throat swelled [facility] Other (2 sources) busPIRone; Translations: [buspirone] Drug Allergy 4 headache [facility] Medications Current Medications Medication Drug Class(es) Dates Sig (Normalized) Sig (Original) 3 ML semaglutide 1.34 MG/ML Pen Injector [Ozempic] (8 sources) Start: 10-01-2022 inject 1 mg by subcutaneous injection every week Ozempic (1 MG/DOSE) 4 MG/3ML 1 mg Subcutaneous Once a week for 28 days Sep, Active 3 ML semaglutide 2.68 MG/ML Pen Injector [Ozempic] (19 sources) Start: 12-16-2022 inject 2 mg by subcutaneous injection every week Ozempic (2 MG/DOSE) 8 MG/3ML 2 mg Subcutaneous weekly for 30 days Patient assistance. Nov, Active inject 2 mg by subcu taneous injection every week inject 2 mg by subcu taneous injection every week Ozempic (2 MG/DOSE) 8 MG/3ML 2 mg Subcutaneous weekly Patient assistance. Active inject 2 mg by subcu taneous injection every week Ozempic (2 MG/DOSE) 8 MG/3ML 2 mg Subcutaneous weekly for 30 days Patient assistance. Active Ajovy 225 mg/1.5 mL subcutaneous solution (5 sources) Start: 04-26-2019 inject 250 mg by subcutaneous injection every month Ajovy 225 mg/1.5 mL subcutaneous solution 250 mg, SubCutaneous, qMonth, Refills(s) 0, Migraine headache Start Date: 04/26/19 Status: Ordered Ajovy Autoinjector 225 mg/1.5 mL subcutaneous solution (1 source) Start: 11-20-2021 inject 225 mg by subcutaneous injection every month Ajovy Autoinjector 225 mg/1.5 mL subcutaneous solution 225 mg, SubCutaneous, qMonth, Refills(s) 0 Start Date: 11/20/21 Status: Ordered [id number] 200 actuat albuterol 0.09 mg/actuat metered dose inhaler (10 sources) beta2-Adrener gic Agonist albuterol (Ventolin HFA) 90 mcg/actuation inhaler Use as directed 0 Active Ventolin 90 MCG/ ACT AERS USE DIRECTED. Quantity: 0 Refills: 0 Ordered: 24-Oct-2022 DO Active take 1 puff(s) by in halation every four hours as needed Ventolin HFA 108 (90 Base) MCG/ACT 1 puf f as needed Inhalation every 4 hrs Active amylase [id number] unt / lipase 20515 unt / protease [id number] unt delayed release oral capsule (1 source) take 1 capsule by mouth once daily pancrelipase, Kjr-Hfow-Cxka, (Creon) 36,000-114,000- 180,000 unit capsule,delayed release(DR/EC) capsule Take 1 capsule by mouth once daily. 0 Active Ascorbic Acid (15 sources) Vitamin C take 500 mg by mouth once daily Ascorbic Acid (VITAMIN C) 500 mg chew Take 500 mg by mouth once daily. 0 Active Vitamin C Active Comment on above: Take 500 mg by mouth once daily. aspirin 81 mg delayed release oral tablet (20 sources) Platelet Aggregation Inhibitor, Nonsteroidal Anti-inflammatory Drug Start: 05-06-2022 End: 08-28-2023 take 81 mg by mouth once daily Aspirin Active 81 MG PO Daily May 06, 2022 12:00am take 1 tablet by mouth once [place] take 1 tablet by mouth once [place] Aspirin 81 81 MG 1 tablet Orally Once a day Active take 1 tablet by mouth once [place] take 1 tablet by mouth once [place] Aspirin EC 325 MG 1 tablet Orally Once a day for 30 day(s) Active take 1 tablet by michelle th every twenty-four hours Aspirin EC 325 MG 1 tablet Orally Once a day for 30 day(s) Active atorvastatin 80 mg oral tablet (20 sources) HMG-CoA Reductase Inhibitor Start: 01-25-2016 take 1 tablet by mouth once daily at bedtime atorvastatin (Lipitor) 80 mg tablet Take 1 tablet (80 mg) by mouth once daily at bedtime. 0 02/19/2022 Active Comment on above: Take 80 mg by mouth daily at bedtime. b complex 0.4 mg tablet (1 source) b complex 0.4 mg tablet As directed 0 Active baclofen 20 mg oral tablet (20 sources) gamma-Aminobutyr ic Acid-ergic Agonist Start: 08-27-2013 take 1 tablet by mouth twice daily baclofen 20 mg Tab 20 mg = 1 tab(s), Oral, BID, Refills(s) 0, Other (see comment) Start Date: 08/27/13 Status: Ordered Start: 08-27-2013 take 20 mg by mouth once daily at bedtime Baclofen Active 20 MG PO Daily at bedtime March 29, 2017 11:00pm Comment on above: Take 20 mg by mouth daily at bedtime. biotin 10 mg oral capsule (20 sources) Start: 03-30-2017 take 1 tablet by mouth once daily at bedtime Biotin Active 1 TAB PO Daily at bedtime March 29, 2017 11:00pm Start: 01-25-2016 take 1 tablet by michelle th at bedtime biotin 10,[id number] tabs, Oral, Bedtime, Refills(s) 0, Migraine headache Start Date: 01/25/16 Status: Ordered take 1 tablet by michelle th every twenty-four hours Biotin 5000 MCG 1 tablet Orally Once a day Active take 1 tablet by michelle th every twenty-four hours take 1 tablet by michelle th once daily Biotin Maximum Strength 91589 MCG Oral Tablet TAKE 1 TABLET DAILY. Quantity: 0 Refills: 0 Ordered: 16-Jul-2022 DO Active take 10 ug by mouth once daily at bedtime BIOTIN ORAL Take 10 mcg by mouth daily at bedtime. 0 Active Comment on above: Take 10 mcg by mouth daily at bedtime. bisacodyl 5 mg delayed release oral tablet (18 sources) Stimulant Laxative Start : 08-20 take 2 tablets by mouth once daily as needed for constipation bisacodyl 5 mg Oral EC Tab 10 mg = 2 tab(s), Oral, Daily, PRN for constipation, # 20 tab(s), Refills(s) 0 Start Date: 09/24/21 Status: Ordered Comment on above: Take 2 tablets [facility] daily as needed. onabotulinumtoxina 100 unt injection (20 sources) Acetylcholine Release Inhibitor Start : 06-02 Onabotulinumtoxina (Botox) 100 unit Recon Soln Active 0 .ROUTE .COMPLEX June 02, 2022 12:00am patient recieves injectios for migraine treatment every 3 months at neurology office onabotulinumtoxi nA (BOTOX INJ) Every 90 days 0 Active onabotulinum tox in type A (BOTOX) 100 unit solr every 90 days for migraines 0 Active Comment on above: every 90 days for mi graines calcitonin 200 intl units/inh Nasal [place] (1 source) Start: 08-11-19 18 take 1 spray(s) by inhalation once daily calcitonin 200 intl units/inh Nasal [place] = 1 spray(s), Nasal, Daily, Refills(s) 0, Prophylaxis Start Date: 08/11/17 Status: Ordered Calcium (8 sources) Phosphate Binder, Calcium Calcium + D3 Active calcium carbonate 1500 mg / cholecalciferol 0.01 mg oral tablet (7 sources) Vitamin D Start: 08-11-19 18 take 1 tablet by mouth once daily calcium-vitamin D 600 mg-400 intl units oral tablet 1 tab(s), Oral, Daily, Refill(s) 0, Prophylaxis Start Date: 08/11/17 Status: Ordered Start: 08-11-2017 take 1 tablet by [facility] once daily calcium-vitamin D 600 mg-400 intl units oral tablet 1 tab(s), Oral, Daily, Refill(s) 0, Prophylaxis Start Date: 08/11/17 Status: Ordered calcium carbonate 118 mg / prasterone 10 mg oral tablet (19 sources) Start: 07-14-2018 take 1 tablet by mouth once daily Prasterone (Dhea)-Calcium Carb (Dhea) 10 mg-47 mg calcium Tablet Active 10 TAB PO Daily July 14, 2018 12:00am calcium-vitamin D 600 mg-400 intl units oral tablet (5 sources) Start: 08-11-2017 take 1 tablet by mouth once daily calcium-vitamin D 600 mg-400 intl units oral tablet 1 tab(s), Oral, Daily, Refill(s) 0, Prophylaxis Start Date: 08/11/17 Status: Ordered cbd- hemp oil (1 source) Start: 04-26-2019 take 2 tablets by mouth once daily cbd- hemp oil cbd- hemp oil, 2 tab(s), Oral, Daily Start Date: 04/26/19 Status: Ordered cholecalciferol 0.125 mg oral capsule (11 sources) Vitamin D Start: 09-24-2021 take 1 capsule by mouth once daily at mealtime cholecalciferol 5000 intl units oral capsule 125 mcg = 1 cap(s), Oral, Daily, with food, # 100 cap(s), Refills(s) 0 Start Date: 09/24/21 Status: Ordered Start: 09-24-2021 take 1 capsule [facility] daily at mealtime cholecalciferol 5000 intl units oral capsule 125 mcg = 1 cap(s), Oral, Daily, with food, # 100 cap(s), Refills(s) 0 Start Date: 09/24/21 Status: Ordered cholecalciferol, vitamin D3, (D3-50 CHOLECALCIFEROL ORAL) (1 source) cholecalciferol, vitamin D3, (D3-50 CHOLECALCIFEROL ORAL) chromium picolin,hist/minerals (CHROMIUM PICOLINAT,HISTID-MINS ORAL) (1 source) chromium picolin,hist/minerals (CHROMIUM PICOLINAT,HISTID-MINS ORAL) 800 mcg take as directed 0 Active chromium picolinate 0.8 mg oral tablet (20 sources) Start: 09-24-2021 take 1 tablet by mouth once daily chromium picolinate 800 mcg oral tablet 800 mcg = 1 tab(s), Oral, Daily, Refills(s) 0 Start Date: 09/24/21 Status: Ordered Chromium Picolin ate 800 MCG Oral Tablet TAKE DIRECTED. Quantity: 0 Refills: 0 Ordered: 24-Oct-2022 DO Active take 800 ug by mouth once daily CHROMIUM PICOLINATE ORAL Take 800 mcg by mouth once daily. 0 Suspended take 800 ug by mouth once daily CHROMIUM PICOLINATE ORAL Take 800 mcg by mouth once daily. 0 Active Comment on above: Take 800 mcg by mout h once daily. clopidogrel 75 mg oral tablet (20 sources) P2Y12 Platelet Inhibitor Start: 01-25-20 16 take 1 tablet by mouth once daily at bedtime Clopidogrel Active 1 TAB PO Daily at bedtime March 29, 2017 11:00pm Comment on above: Take 75 mg by mouth once daily. Take 1 tablet by michelle th once daily. Please hold this medication until post op day 10 CoQ-10 50 MG (3 sources) take 1 capsule by mouth once daily CoQ-10 50 MG 1 capsule with a meal Orally Once a day Active DHEA 50 mg oral capsule (6 sources) Start: 09-25-19 take 1 tablet by mouth once daily DHEA 50 mg oral capsule = 1 tab(s), Oral, Daily, Refills(s) 0 Start Date: 09/24/21 Status: Ordered dicyclomine hydrochloride 20 mg oral tablet (20 sources) Anticholinergic Start: 08-11-19 18 take 1 tablet by mouth four times daily as needed dicyclomine 20 mg Tab 20 mg = 1 tab(s), Oral, QID, PRN cramps, Refills(s) 0, Indigestion Start Date: 08/11/17 Status: Ordered Start: 08-18-2016 take 20 mg by mouth once daily in the morning Dicyclomine Active 20 MG PO Every morning July 14, 2018 12:00am Dicyclomine HCl 20 MG CAPS TAKE 1 CAPSULE 4 TIMES DAILY. Quantity: 0 Refills: 0 Ordered: 16-Jul-2022 DO Active take 2 capsules by m outh four times daily as needed dicyclomine (BENTYL) 10 mg capsule Take 20 mg by mouth as needed. 4 times daily as needed 0 Active Comment on above: Take 20 mg by mouth as needed. 4 times daily as needed diphenhydrAMINE hydrochloride 25 mg oral capsule (7 sources) Histamine-1 Receptor Antagonist Start: 11-21-19 take 1 capsule by mouth every six hours as needed Diphenhist 25 mg oral capsule 25 mg = 1 cap(s), Oral, q6hr, PRN as needed for itching, # 30 cap(s), Refills(s) 0 Start Date: 11/20/21 Status: Ordered doxazosin 4 mg oral tablet (20 sources) alpha-Adrenergic [place] Start: 05-01-20 14 take 4 mg by mouth once daily at bedtime Doxazosin Active 4 MG PO Daily at bedtime March 29, 2017 11:00pm Comment on above: Take 4 mg by mouth o nce daily. doxepin hydrochloride 10 mg oral capsule (20 sources) Tricyclic Antidepressant take 1 capsule by mouth every twenty-four hours take 2 tablets by mo [facility] once daily at bedtime doxepin capsule 10 mg [facility]. Takes 2 tabs at bedtime 0 Active Comment on above: Take 10 mg by mouth daily at bedtime. Takes 2 tabs at bedtime doxycycline hyclate 100 mg oral tablet (7 sources) Tetracycline-class Drug Start: 01-30-2022 End: 02-06-2022 take 1 tablet by mouth twice daily doxycycline (VIBRA-TABS) 100 mg tablet Take 1 tablet by mouth twice daily for 7 days. 14 tablet 0 01/30/2022 02/06/2022 Active Start: 11-27-2021 End: 12-26-2021 take 1 capsule by mouth twice daily doxycycline hyclate (VIBRAMYCIN) 100 mg capsule Take 1 capsule by mouth twice daily for 28 days. 56 capsule 0 11/27/2021 12/26/2021 Comment on above: Take 1 capsule by mo [facility] twice daily for 28 days. Take 1 tablet by [facility] twice daily for 7 days. DULoxetine 30 mg delayed release oral capsule (20 sources) Serotonin and Norepinephrine Reuptake Inhibitor Start: 2 take 3 capsules by mouth once daily duloxetine 30 mg Cap-DR 90 mg, Oral, Daily, Refills(s) 0 Start Date: 09/24/21 Status: Ordered Start: 03-30-2017 Duloxetine (Cy mbalta) 60 mg Capsule,Delayed Release(Dr/Ec) Active 30 MG PO Three times daily March 29, 2017 11:00pm Start: 03-30-2017 Duloxetine (Cy mbalta) 60 mg Capsule,Delayed Release(Dr/Ec) Active 30 MG PO Daily March 29, 2017 11:00pm Start: 10-20-2014 take 1 capsule by mo [facility] once daily DULoxetine (CYMBALTA) 30 mg capsule Take 1 capsule by mouth once daily. Take with 60 mg for 90 mg total dose. 30 capsule 11 10/20/2014 Active take 2 capsules by [facility] once daily DULoxetine (Cymbalta) [address] capsule Take 2 capsules (60 mg) by mouth once daily. Do not crush or chew. 0 Active take 1 capsule by [facility] every six hours DULoxetine HCl 30 MG 1 capsule Orally QID Active take 1 capsule by [facility] every eight hours DULoxetine HCl 30 MG 1 capsule Orally TID Active Comment on above: Take 1 capsule by [facility] once daily. Take with 60 mg for 90 mg total dose. duloxetine 30 mg Cap-DR (10 sources) Start: 09-24-2021 take 3 capsules by mouth once daily duloxetine 30 mg Cap-DR 90 mg, Oral, Daily, Refills(s) 0 Start Date: 09/24/21 Status: Ordered eletriptan 40 mg oral tablet (20 sources) Serotonin-1b and Serotonin-1d Receptor Agonist Start: 09-24-2021 eletriptan 40 mg Tab 40 mg = 1 tab(s), Oral, As Directed, PRN for migraine headache, if headache improves but returns, may repeat dose once after 2 hours, # 6 tab(s), Refills(s) 0 Start Date: 09/24/21 Status: Ordered Start: 03-30-2017 End: 09-11-2021 take 1 tablet by mouth three times daily Eletriptan (Relpax) 40 mg Tablet Discontinued 1 dose pk PO Three times daily March 29, 2017 11:00pm September 11, 2021 4:05pm take 1 tablet by [facility] every two hours as needed eletriptan (RELPAX) 40 mg tablet Take 40 mg by mouth as needed. may repeat in 2 hours if necessary 0 Active Comment on above: Take 40 mg by mouth as needed. may repeat in 2 hours if necessary elppa CoQ10 50 mg oral capsule (6 sources) Start: 09-24-2021 take 1 capsule by mouth once daily elppa CoQ10 50 mg oral capsule 50 mg = 1 cap(s), Oral, Daily, # 30 cap(s), Refills(s) 0 Start Date: 09/24/21 Status: Ordered ferrous sulfate 325 mg oral tablet (20 sources) Start: 10-09-2022 take 1 tablet by mouth once daily at mealtime Ferrous Sulfate 325 (65 Fe) MG 1 tablet Orally Daily with food for 30 days Sep, Active Start: 10-09-2022 take 1 tablet by michelle th once daily at mealtime Ferrous Sulfate 325 (65 Fe) MG 1 tablet Orally Daily with food for 30 days Sep, Active ferrous sulfate 325 (65 Fe) MG EC tablet once daily. Do not crush, chew, or split. 0 Active Ferrous Sulfate 324 (65 Fe) MG Oral Tablet Delayed Release daily Quantity: 0 Refills: 0 Ordered: 24-Oct-2022 DO Active finasteride 5 mg oral tablet (20 sources) 5-alpha Reductase Inhibitor Start: 08-27-2013 take 5 mg by mouth once daily at bedtime Finasteride Active 5 MG PO Daily at bedtime March 29, 2017 11:00pm Comment on above: Take 5 mg by mouth d aily at bedtime. Fish Oils (20 sources) Start: 01-25-2016 take 1 capsule by mouth once daily Fish Oil 1200 mg oral capsule 1,200 mg = 1 cap(s), Oral, Daily, Refills(s) 0, High cholesterol Start Date: 01/25/16 Status: Ordered take 1 capsule by mouth once [place] take 1 capsule by mouth once [place] Fish Oil 1000 MG 1 capsule Orally Once a day Active 1.5 ml fremanezumab-vfrm 150 mg/ml prefilled syringe (20 sources) Start: 06-02-2022 Fremanezumab-V frm (Ajovy Syringe) 225 mg/1.5 mL Syringe Active 250 MG SUBCUT Q28D June 02, 2022 12:00am for migraines, patient last injection 05/27 Start: 11-20-2021 inject 225 mg by sub cutaneous injection every month Ajovy Autoinjector 225 mg/1.5 mL subcutaneous solution 225 mg, SubCutaneous, qMonth, Refills(s) 0 Start Date: 11/20/21 Status: Ordered fremanezumab (Aj ovy) 225 mg/1.5 mL prefilled syringe 1.5 mL (225 mg) every 28 (twenty-eight) days. 0 Active furosemide 40 mg oral tablet (20 sources) Loop Diuretic Start: 05-29-2014 take 1 tablet by mouth once daily in the morning Furosemide Active 1 TAB PO Every morning March 29, 2017 11:00pm Comment on above: Take 40 mg by mouth once daily. Green Tea Capsule (7 sources) Start: 11-20-2021 take 1 capsule by mouth once daily Green Tea Capsule Green Tea Capsule, 315 mg, Oral, Daily Start Date: 11/20/21 Status: Ordered 12 hr guaiFENesin 600 mg extended release oral tablet (1 source) Start: 10-07-2021 End: 10-14-2021 take 1 tablet by mouth every twelve hours Mucinex 600 mg Tab-ER 600 mg = 1 tab(s), Oral, q12hr, X 7 day(s), Refills(s) 0 Start Date: 10/07/21 Stop Date: 10/14/21 Status: Ordered 24 hr isosorbide mononitrate 30 mg extended release oral tablet (20 sources) Nitrate Vasodilator Start: 07-16-2022 take 1 tablet by mouth once daily isosorbide mononitrate ER (Imdur) 30 mg 24 hr tablet Indications: Angina pectoris (CMS/HCC) TAKE ONE TABLET BY MOUTH DAILY 90 tablet 3 07/15/2023 Active levoFLOXacin 500 mg oral tablet (6 sources) Quinolone Antimicrobial Start: 05-26-2023 take 1 tablet by mouth every twenty-four hours levoFLOXacin 500 MG 1 tablet Orally Once a day for 10 days Apr, Active Start: 04-21-2023 take 2 tablets by mo ut once daily Levaquin 250 MG 2 tablets Orally Once a day for 10 days Mar, Active 3 ml liraglutide 6 mg/ml pen injector (10 sources) GLP-1 Receptor Agonist Victoza 1 8 MG/3ML Week one- 0.6mg daily, Week two thereafter- 1.2mg daily Subcutaneous Daily for 30 days Please dispense brand and amt of pen needles allowed by insurance. Thanks. Cardiovascular risk factor Z91.89, prediabetes R73.09, Active Magnesium (20 sources) take 1 tablet by mouth once chel[place] y Magnesium 400 MG Oral Tablet 1 TAB DAILY Quantity: 0 Refills: 0 Ordered: 24-Oct-2022 DO Active Magnesium 500mg 1 tablet at bedtime Active take 1 capsule by mouth once [place] ly take 1 capsule by mouth once [place] ly Magnesium 300 MG 1 capsule with a meal Orally Once a day Active take 400 mg by mouth once daily MAGNESIUM ORAL Take 400 mg by mouth once daily. 0 Suspended take 400 mg by mouth once daily MAGNESIUM ORAL Take 400 mg by mouth once daily. 0 Active Comment on above: Take 400 mg by mouth once daily. magnesium oxide 400 mg oral tablet (12 sources) Start: 09-24-2021 take 1 tablet by mouth once daily magnesium oxide 400 mg Tab 400 mg = 1 tab(s), Oral, Daily, Refills(s) 0 Start Date: 09/24/21 Status: Ordered JOHANNE BIOTIN ORAL (1 source) take 50519 ug by mouth once daily JOHANNE BIOTIN ORAL Take 10,000 mcg by mouth once daily. 0 Active menthol 0.04 mg/mg topical gel (7 sources) Start: 11-20-2021 Biofreeze 4% topical gel 1 beau, Topical, q6hr Other (see comment), Refill(s) 0 Start Date: 11/20/21 Status: Ordered Start: 11-20-2021 Biofreeze 4% t opical gel 1 beau, Topical, q6hr Other (see comment), Refill(s) 0 Start Date: 11/20/21 Status: Ordered methylPREDNISolone 4 mg oral tablet (13 sources) Corticosteroid Start: 07-30-2023 methylPREDNISo lone 4 MG as directed Orally As directed for 6 days Jul, Active Start: 04-07-2023 methylPREDNISo lone 4 MG as directed Orally As directed for 6 days Mar, Active Start: 09-24-2022 Medrol (Solis) 4 MG as directed Orally as directed for 6 days Aug, Active Start: 07-03-2022 methylPREDNISo lone (MEDROL DOSE-PACK) 4 mg Dose-Pack As Instructed per package 21 tablet 0 07/03/2022 Active Start: 04-21-2022 End: 07-03-2022 methylPREDNISolone (MEDROL D OSE-PACK) 4 mg Dose-Pack As Instructed per package 21 tablet 0 04/21/2022 07/03/2022 Discontinued Start: 04-21-2022 methylPREDNISo lone (MEDROL DOSE-PACK) 4 mg Dose-Pack As Instructed per package 21 tablet 0 04/21/2022 Active Comment on above: As Instructed per raimundo martin Milk thistle extract (19 sources) Start: 03-29-2022 take 2 tablets by mouth once daily Milk Thistle oral capsule 2 tab(s), Oral, Daily, Refill(s) 0 Start Date: 09/24/21 Status: Ordered Milk Thistle 140 MG as directed Orally Active Miralax 17 gram packet (10 sources) Start: 09-24-2021 take 17 g by mouth o nce daily as needed for constipation Miralax 17 gram packet 17 gram, Oral, Daily, PRN Constipation, # 527 gram, Refills(s) 0 Start Date: 09/24/21 Status: Ordered Wctrijaz-Jcr-Kbcyi- Vit K-Lycop (One-A-Day Men's Multivitamin) 400-300 mcg Tablet (19 sources) Start: 03-30-2017 take 1 tablet by michelle th once daily Wbatbvzh-Oia-Kbvat-Vit K-Lycop (One-A-Day Men's Multivitamin) 400-300 mcg Tablet Active 1 TAB PO Daily March 29, 2017 11:00pm Start: 03-30-2017 take 1 tablet by michelle th once daily Wqhtwwem-Jsm-Prdoa-Vit K-Lycop (One-A-Da y Men's Multivitamin) 400-300 mcg Tablet Active 1 TAB PO Daily March 30, 2017 12:00am multivitamin capsule (1 source) take 1 capsule by mo uth once daily multivitamin capsule Take 1 capsule by mouth once daily. 0 Active Multivitamin preparation (20 sources) Multivitamin Act grace mupirocin 0.02 mg/mg topical ointment (5 sources) RNA Synthetase Inhibitor Antibacterial Start: 12-26-2021 End: 12-31-2021 mupirocin (BACTROBAN) 2 % ointment Apply 1/2 Bactroban ointment with a cotton swab to each nostril in the morning and at bedtime starting 5 days prior to surgery. 22 g 0 12/26/2021 12/31/2021 Suspended Comment on above: Apply 1/2 Bactroban ointment with a cotton swab to each nostril in the morning and at bedtime starting 5 days prior to surgery. nortriptyline 50 mg oral capsule (20 sources) Tricyclic Antidepressant Start: 04-26-2019 take 50 mg by mouth once daily at bedtime Nortriptyline Active 50 MG PO Daily at bedtime September 10, 2021 11:00pm Comment on above: Take 50 mg by mouth daily at bedtime. omega-3 fatty acids (FISH OIL CONCENTRATE ORAL) (1 source) take 1 tablet by mouth once daily omega-3 fatty acids (FISH OIL CONCENTRATE ORAL) Take 1 tablet by mouth once daily. 0 Active omeprazole 40 mg delayed release oral capsule (20 sources) Proton Pump Inhibitor Start: 07-27-2021 take 40 mg by mouth once daily in the morning Omeprazole Active 40 MG PO Every morning September 10, 2021 11:00pm Start: 01-25-2016 take 40 mg by mouth once daily Prilosec 40 mg, Oral, Daily, Refills(s) 0, Control of stomach acid Start Date: 01/25/16 Status: Ordered Comment on above: Take 40 mg by mouth once daily. One-A-Day (12 sources) Start: take 1 tablet by mouth once daily at bedtime One-A-Day 1 tab(s), Oral, Bedtime, Refill(s) 0, Prophylaxis Start Date: 01/25/16 Status: Ordered oxyCODONE hydrochloride 5 mg oral tablet (9 sources) Opioid Agonist Start: End: take 1 tablet by mouth every six hours as needed oxyCODONE IR (ROXICODONE) 5 mg immediate release tablet Indications: Spondylolisthesis of lumbar region , Lumbar stenosis with neurogenic claudication Take 1-2 tablets by mouth every 6 hours as needed for up to 7 days. 35 tablet 0 01/06/2022 01/13/2022 Active Comment on above: Take 1-2 tablets by mouth every 6 hours as needed for up to 7 days. ozempic (2 mg/dose) 8 mg/3ml solution pen-injector (9 sources) inject 2 mg by subcutaneous injection every week Ozempic (2 MG/DOSE) 8 MG/3ML 2 mg Subcutaneous weekly Patient assistance. Active inject 2 mg by subcutaneous inje ction every week polyethylene glycol 3350 34082 mg powder for oral solution (8 sources) Osmotic Laxative Start: 08-20-2021 take 17 g by mouth once daily as needed for constipation Miralax 17 gram packet 17 gram, Oral, Daily, PRN Constipation, # 527 gram, Refills(s) 0 Start Date: 09/24/21 Status: Ordered Comment on above: Take 1 Packet by michelle once daily. Dissolve dose in 4 - 8 ounces of liquid and take as directed. prasterone 50 mg oral capsule (12 sources) Start: 09-24-2021 take 1 tablet by mouth once daily DHEA 50 mg oral capsule = 1 tab(s), Oral, Daily, Refills(s) 0 Start Date: 09/24/21 Status: Ordered take 1 tablet by mouth once chel[place] y prasterone, dhea, (DHEA) 50 mg tab Take by mouth once daily. 0 Active Comment on above: Take by mouth once d aily. Probiotic (20 sources) Probiotic as dir ected Active QUEtiapine 25 mg oral tablet (20 sources) Atypical Antipsychotic Start: 06-02-2022 take 25 mg by mouth once daily at bedtime Quetiapine Active 25 MG PO Daily at bedtime June 02, 2022 12:00am Start: 01-15-2022 QUEtiapine Fum arate 25 MG Oral Tablet TAKE 1 TABLET 2-3 TIMES DAILY. Quantity: 0 Refills: 0 Ordered: 15-Jan-2022 DO Start : 15-Jan-2022 Active Start: 01-15-2022 End: 04-09-2022 take 1 tablet by mouth once daily at bedtime QUEtiapine (SEROQUEL) 25 mg tablet TAKE ONE TABLET BY MOUTH EVERY NIGHT AT BEDTIME 30 tablet 0 04/08/2022 Active Start: 11-27-2021 take 1 tablet by michelle every twelve hours as needed QUEtiapine (SEROQUEL) 25 mg tablet Take 1 tablet by mouth twice daily as needed (Delirium) for up to 5 days. 10 tablet 0 11/27/2021 Active Start: 09-22-2021 take 1 tablet by michelle once daily at bedtime QUEtiapine (SEROQUEL) 50 mg tablet Take 1 tablet by mouth daily at bedtime. 14 tablet 0 09/22/2021 Active Comment on above: Take 1 tablet by michelle th daily at bedtime. Take 1 tablet by michelle twice daily as needed (Delirium) for up to 5 days. TAKE ONE TABLET BY M OUTH EVERY NIGHT AT BEDTIME rOPINIRole 0.5 mg oral tablet (20 sources) Nonergot Dopamine Agonist take 1 tablet by mouth once daily rOPINIRole (Requip) 0.5 mg tablet Take 1 tablet (0.5 mg) by mouth once daily. 0 Active Selenium TR 200 mcg oral tablet (11 sources) Start: 09-24-2021 take 1 tablet by mouth at bedtime Selenium TR 200 mcg oral tablet = 1 tab(s), Oral, Bedtime, # 30 tab(s), Refills(s) 0 Start Date: 09/24/21 Status: Ordered Start: 09-24-2021 take 1 tablet by michelle th once daily Selenium TR 200 mcg oral tablet = 1 tab(s), Oral, Daily, # 30 tab(s), Refills(s) 0 Start Date: 09/24/21 Status: Ordered sulfamethoxazole 800 mg / trimethoprim 160 mg oral tablet (20 sources) Dihydrofolate Reductase Inhibitor Antibacterial, Sulfonamide Antimicrobial Start: 12-18-2022 take 1 tablet by mouth every twelve hours Bactrim DS 800-160 MG 1 tablet Orally Twice a day for 10 days Mar, Active Start: 02-04-2022 End: 02-18-2022 take 1 tablet by mouth twice daily sulfamethoxazole-trimethoprim (BACTRIM D S) 800-160 mg per tablet Take 1 tablet by mouth twice daily for 14 days. 28 tablet 0 02/04/2022 02/18/2022 Active Start: 06-27-2021 take 1 tablet by michelle th every twelve hours Bactrim DS 800-160 MG 1 tablet Orally Tw ice a day for 10 day(s) May, Active Comment on above: Take 1 tablet by michelle th twice daily for 14 days. telmisartan 80 mg oral tablet (20 sources) Angiotensin 2 Receptor [place] Start: 7 take 1 tablet by mouth once daily in the morning Telmisartan (Micardis) 80 mg Tablet Active 80 MG PO Every morning March 29, 2017 11:00pm Comment on above: Take 80 mg by mouth daily at bedtime. Take 80 mg by mouth once daily. Testost CYP 200 mg (5 sources) Start: 7 Testost CYP 200 mg Testost CYP 200 mg, 300 mg, IntraMuscular, q2wk Start Date: 11/10/16 Status: Ordered Start: 11-10-2016 Testost CYP 20 0 mg Testost CYP 200 mg, 200 mg, IntraMuscular, q2wk Start Date: 11/10/16 Status: Ordered Testosterone Cypionate 200 mg/mL intramuscular solution (7 sources) Start: 11-20-2021 inject 300 mg by intramuscular injection every other week Testosterone Cypionate 200 mg/mL intramuscular solution 300 mg = 1.5 mL, IntraMuscular, q2wk, Refills(s) 0 Start Date: 11/20/21 Status: Ordered turmeric extract 500 mg oral capsule (11 sources) Start: 09-24-2021 take 1 capsule by mouth once daily turmeric 500 mg oral capsule 500 mg = 1 cap(s), Oral, Daily, Refills(s) 0 Start Date: 09/24/21 Status: Ordered ubidecarenone 50 mg oral capsule (10 sources) Start: 09-24-2021 take 1 capsule by mouth once daily elppa CoQ10 50 mg oral capsule 50 mg = 1 cap(s), Oral, Daily, # 30 cap(s), Refills(s) 0 Start Date: 09/24/21 Status: Ordered take 1 capsule by [facility] every twenty-four hours CoQ-10 50 MG 1 capsule with a meal Orally Once a day Active vancomycin 1.5 g/250 mL-NaCl 0.9% intravenous solution (4 sources) Start: 09-24-2021 vancomycin 1.5 g/250 mL-NaCl 0.9% intravenous solution BID, Refills(s) 0 Start Date: 09/24/21 Status: Ordered Ventolin HFA 90 mcg/inh Aerosol (1 source) Start: 04-26-2019 take 2 puff(s) by inhalation four times daily Ventolin HFA 90 mcg/inh Aerosol 2 puff(s), Inhalation, QID Shortness of breath or wheezing, Refill(s) 0, Shortness of breath or wheezing Start Date: 04/26/19 Status: Ordered Vitamin B Complex oral capsule (11 sources) Start: 09-24-2021 Vitamin B Comp whit[place] oral capsule 1 cap(s), Oral, Daily, 30 cap(s), Refill(s) 0 Start Date: 09/24/21 Status: Ordered Vitamin C 500 mg Tab (12 sources) Start: 12-22-2017 take 1 tablet by mouth once daily Vitamin C 500 mg Tab 500 mg = 1 tab(s), Oral, Daily, Refills(s) 0, Prophylaxis Start Date: 12/22/17 Status: Ordered Vitamin D 125 MCG (5000 UT) (4 sources) Vitamin D 125 MC G (5000 UT) as directed Orally Active zolpidem tartrate 5 mg oral tablet (20 sources) gamma-Aminobut yric Acid-ergic Agonist Start: 09-27-2021 take 1 tablet by mouth once daily at bedtime as needed for sleep Ambien 5 mg Tab 5 mg = 1 tab(s), Oral, Once a day (at bedtime), PRN for sleep, # 30 tab(s), Refills(s) 0, Pharmacy: [facility] [place], 176.5, cm, 05/18/20 7:33:00 EST, Height/Length Dosing Start Date: 09/27/21 Status: Ordered Start: 03-30-2017 End: 09-11-2021 take 1 tablet by mouth at bedtime Zolpidem (Ambien Cr) 12.5 mg Tablet,Ext Release Multiphase Discontinued 12.5 MG PO Bedtime March 29, 2017 11:00pm September 11, 2021 7:45pm Comment on above: Take by mouth. Completed/Discontinued Medications Medication Drug Class(es) Dates Sig (Normalized) Sig (Original) acetaminophen 500 mg oral tablet (20 sources) Start: 05-03-2022 End: 06-02-2022 take 1000 mg by mouth every six hours Acetaminophen Discontinued 1000 MG PO Q6H May 02, 2022 11:00pm June 02, 2022 8:48am Start: 05-03-2022 Acetaminophen (Tylenol Ex Str Rapid Release) 500 mg Tablet Active 1000 MG PO Q6H May 02, 2022 11:00pm Start: 01-06-2022 End: 03-06-2022 take 2 tablets by mouth every eight hours as needed acetaminophen (TYLENOL) 500 mg tablet Take 2 tablets by mouth every 8 hours as needed for pain. 21 tablet 0 01/06/2022 03/06/2022 Discontinued take 1 tablet by michelle th every four hours Comment on above: Take 2 tablets by mo [facility] every 8 hours as needed for pain. acetaminophen 325 mg / HYDROcodone bitartrate 5 mg oral tablet (20 sources) Opioid Agonist Start: 2 End: 2 take 1 tablet by mouth every six hours Hydrocodone-Acetamino phen Discontinued 1 TAB PO Every 6 hours 12 May 06, 2022 June 02, 2022 8:51am Start: 03-13-2022 End: 03-28-2022 take 1 tablet by mouth every six hours as needed for pain HYDROcodone-acetaminophen (NORCO) 5-325 mg per tablet Indications: Lumbar pseudoarthrosis Take 1 tablet by mouth every 6 hours as needed for pain for up to 7 days. 28 tablet 0 03/21/2022 03/28/2022 Active Start: 02-27-2022 End: 03-13-2022 take 1 tablet by mouth every eight hours as needed for pain HYDROcodone-acetaminophen (NORCO) 5-325 mg per tablet Indications: Lumbar pseudoarthrosis Take 1 tablet by mouth every 8 hours as needed for pain for up to 7 days. 21 tablet 0 03/06/2022 03/13/2022 Discontinued Start: 02-20-2022 End: 02-27-2022 take 1 tablet by mouth every six hours as needed for pain HYDROcodone-acetaminophen (NORCO) 5-325 mg per tablet Indications: Radiculopathy, lumbar region Take 1 tablet by mouth every 6 hours as needed for pain for up to 7 days. 28 tablet 0 02/20/2022 02/27/2022 Active Start: 01-23-2022 take 1 tablet by michelle th every four to six hours as needed for pain HYDROcodone-Acetaminophen 5-325 MG Oral Tablet TAKE 1 TABLET EVERY 4 TO 6 HOURS NEEDED FOR PAIN. Quantity: 0 Refills: 0 Ordered: 30-Jan-2022 DO Start : 23-Jan-2022 Active Start: 01-23-2022 End: 02-20-2022 take 1 tablet by mouth every eight hours as needed for pain HYDROcodone-acetaminophen (NORCO) 5-325 mg per tablet Indications: Radiculopathy, lumbar region Take 1 tablet by mouth every 8 hours as needed for pain for up to 7 days. 21 tablet 0 02/13/2022 02/20/2022 Discontinued Start: 01-15-2022 take 1 tablet by michelle th every eight hours as needed for pain HYDROcodone-acetaminophen (NORCO) 5-325 mg per tablet Indications: Radiculopathy, lumbar region Take 1 tablet by mouth every 8 hours as needed for pain. 42 tablet 0 01/15/2022 Active Start: 12-12-2021 take 1 tablet by michelle th every eight hours as needed for pain HYDROcodone-Acetaminophen (NORCO) 10-325 mg per tablet Indications: Spondylolisthesis of lumbar region , Lumbar radiculopathy Take 1 tablet by mouth every 8 hours as needed for pain. 38 tablet 0 12/12/2021 Suspended Start: 12-04-2021 take 1 tablet by michelle th every eight hours as needed for pain HYDROcodone-Acetaminophen (NORCO) 10-325 mg per tablet Indications: Spondylolisthesis of lumbar region , Lumbar radiculopathy Take 1 tablet by mouth every 8 hours as needed for pain. 38 tablet 0 12/04/2021 Active Start: 09-23-2021 [place] 325 mg-5 mg oral tablet 1 tab(s), Oral, q4hr pain, 30 tab(s), Refill(s) 0 Start Date: 09/23/21 Status: Ordered Start: 09-22-2021 take 1 tablet by michelle th every six hours as needed HYDROcodone-acetaminophen (NORCO) 5-325 mg per tablet Indications: Post-op pain , S/P lumbar fusion Take 1 tablet by mouth every 6 hours as needed. 30 tablet 0 09/22/2021 Active Start: 03-30-2017 End: 05-03-2022 take 1 tablet by mouth twice daily Hydrocodone-Acetaminophen Discontinued 1 TAB PO Twice daily March 29, 2017 11:00pm May 03, 2022 2:14pm take 1 tablet by michelle th every eight hours HYDROcodone-Acetaminophen 5-325 MG 1 Tab let Orally tid Active take 1 tablet by michelle th three times daily as needed take 1 tablet by michelle th three times daily as needed Posen 5-325 MG 1 tablet as needed Orally three times a day Active Comment on above: Take 1 tablet by michelle th every 6 hours as needed. Take 1 tablet by michelle th every 8 hours as needed for pain. Take 1 tablet by michelle th every 8 hours as needed for pain for up to 7 days. Take 1 tablet by michelle th every 6 hours as needed for pain for up to 7 days. Take 1 tablet by michelle th every 6 hours as needed for pain for up to 14 days. acetaminophen 325 mg / oxyCODONE hydrochloride 5 mg oral tablet (19 sources) Opioid Agonist Start: 0 End: 2 take 1 tablet by mouth every six hours Oxycodone-Acetaminoph en (Percocet) 5-325 mg tablet Discontinued 1 TAB PO Q6H 8 2 February 07, 2020 September 11, 2021 4:13pm anastrozole 1 mg oral tablet (19 sources) Aromatase Inhibitor Start: 9 End: 2 Anastrozole Discontinued TABLET July 14, 2018 12:00am September 11, 2021 3:57pm Berb Sampson/herbal complex no.18 (BERBERINE-HERBAL COMB NO.18 ORAL) (7 sources) take 1000 mg by mouth once daily Berb Sampson/herbal complex no.18 (BERBERINE-HERBAL COMB NO.18 ORAL) Take 1,000 mg by mouth once daily. 0 Active Comment on above: Take 1,000 mg by michelle th once daily. Botox SOLR (1 source) Botox SOLR every 90 days Quantity: 0 Refills: 0 Ordered: 24-Oct-2022 DO Active Calcium Carbonate / vitamin D3 (20 sources) take 1 tablet by mouth once daily CALCIUM CARBONATE/VITAMIN D3 (CALCIUM 600 + D ORAL) Take 1 tablet by mouth once daily. 0 Suspended take 1 tablet by mouth once chel[place] y CALCIUM CARBONATE/VITAMIN D3 (CALCIUM 600 + D ORAL) Take 1 tablet by mouth once daily. 0 Active Comment on above: Take 1 tablet by michelle th once daily. cholecalciferol, vitamin D3, (VITAMIN D3 ORAL) (7 sources) take 125 ug by mouth once daily cholecalciferol, vitamin D3, (VITAMIN D3 ORAL) Take 125 mcg by mouth once daily. 0 Active Comment on above: Take 125 mcg by mout h once daily. chromium picolinate 0.2 mg / gamboge 500 mg oral tablet (19 sources) Start: 03-30-20 17 End: 05-03-20 22 take 200-500 tablets by mouth once daily Chromium-Brindal Baker (Garcinia Cambogia) 200-500 mcg-mg Tablet Discontinued 1 TAB PO Daily March 29, 2017 11:00pm May 03, 2022 2:13pm clindamycin 150 mg oral capsule (20 sources) Lincosamide Antibacterial Start: 09-04-19 23 End: 08-19-19 24 take 450 mg by mouth every eight hours Clindamycin Hcl Discontinued 450 MG PO Q8H 63 7 September 03, 2022 12:00am August 19, 2023 12:02pm Start: 02-27-2022 End: 03-06-2022 take 1 capsule by mouth three times daily clindamycin (CLEOCIN) 150 mg capsule Take 1 capsule by mouth three times daily for 7 days. 21 capsule 0 02/27/2022 03/06/2022 Active Start: 01-06-2022 End: 01-09-2022 take 3 capsules by mouth every eight hours clindamycin (CLEOCIN) 300 mg capsule Take 3 capsules by mouth every 8 hours for 3 days. 27 capsule 0 01/06/2022 01/09/2022 Active Comment on above: Take 3 capsules by m outh every 8 hours for 3 days. Take 1 capsule by mo uth three times daily for 7 days. diclofenac sodium 0.01 mg/mg topical gel (20 sources) Nonsteroidal Anti-inflammatory Drug Start: 07-14-19 End: 09-12-19 apply 2 g topically four times daily Diclofenac Sodium (Voltaren) 1 % Gel Discontinued 2 GM TOPICAL Four times daily July 14, 2018 12:00am September 11, 2021 4:00pm Start: 08-11-2017 diclofenac 2% topical solution 1 beau, Topical, TID, Refill(s) 0, Inflammation Start Date: 08/11/17 Status: Ordered Start: 03-30-2017 End: 09-11-2021 Diclofenac Sodium Discontinu ed 1 APPLIC TOPICAL 2-4 TIMES DAILY March 29, 2017 11:00pm September 11, 2021 4:00pm docosahexaenoic acid/epa (FI SH OIL ORAL) (20 sources) take 5 capsules by mouth once daily docosahexaenoic acid/epa (FISH OIL ORAL) Take 5 capsules by mouth once daily. 0 Suspended take 5 capsules by mouth once da jed docosahexaenoic acid/epa (FISH OIL ORAL) Take 5 capsules by mouth once daily. 0 Active Comment on above: Take 5 capsules by m outh once daily. docusate sodium 100 mg oral capsule (20 sources) Start: 08-20-19 take 1 capsule by mouth twice daily docusate sodium (COLACE) 100 mg capsule Take 1 capsule by mouth twice daily. 0 08/20/2021 Active Comment on above: Take 1 capsule by mo uth twice daily. Fish Oil OIL (1 source) Fish Oil OIL 1 T AB DAILY Quantity: 0 Refills: 0 Ordered: 24-Oct-2022 DO Active fluticasone propionate 0.05 mg/actuat metered dose nasal spray (20 sources) Corticosteroid Start: 04-15-20 take 1 spray(s) nasal route once daily Fluticasone Propionate 50 MCG/ACT Nasal Suspension USE 1 SPRAY IN EACH NOSTRIL ONCE DAILY. Quantity: 0 Refills: 0 Ordered: 07-Jun-2022 DO Start : 15-Apr-2022 Active Start: 03-30-2017 Fluticasone Pr opionate (Flonase Allergy Relief) 50 mcg/actuation Bolt,Suspension Active 2 SPRAY INTRANASAL Daily March 29, 2017 11:00pm Start: 03-30-2017 Fluticasone Pr opionate (Flonase Allergy Relief) 50 mcg/actuation Bolt,Suspension Active 2 SPRAY INTRANASAL Twice daily March 29, 2017 11:00pm Start: 08-27-2013 fluticasone Na emily 0.05 mg/inh [place] 2 spray(s), Nasal, BID, Refill(s) 0, Sinus symptoms Start Date: 08/27/13 Status: Ordered Fluticasone Prop ionate 50 MCG/ACT USE 2 SPRAYS IN EACH NOSTRIL ONCE DAILY Nasally Once a day for 90 days Active take 2 spray(s) nasa l route twice daily fluticasone (FLONASE) 50 mcg/actuation nasal spray Indications: Stroke (HCC) , Headache Use 2 Sprays in each nostril twice daily. 0 Active Comment on above: Use 2 Sprays in each nostril twice daily. fluticasone Nasal 0.05 mg/inh [place] (6 sources) Start: 08-27-2013 fluticasone Nasal 0.05 mg/inh [place] 2 spray(s), Nasal, BID, Refill(s) 0, Sinus symptoms Start Date: 08/27/13 Status: Ordered fremanezumab-vfrm (AJOVY SYRINGE SUBCUTANEOUS) (20 sources) fremanezumab-vfr m (AJOVY SYRINGE SUBCUTANEOUS) Inject 250 mg/mL subcutaneously. every 28 days for migraines 0 Suspended fremanezumab-vfr m (AJOVY SYRINGE SUBCUTANEOUS) Inject 250 mg/mL subcutaneously. every 28 days for migraines 0 Active Comment on above: Inject 250 mg/mL sub cutaneously. every 28 days for migraines gabapentin 600 mg oral tablet (20 sources) Anti-epileptic Agent Start: 03-30-2017 End: 09-11-2021 Gabapentin (Neurontin) 600 mg Tablet Discontinued 600 MG PO 1 to 2 times per day March 29, 2017 11:00pm September 11, 2021 6:14pm Start: 12-12-2016 Neurontin 600 MG 1 tablet Orally Three times a day. NIGHTTIME A HALF Nov, Active ibuprofen 800 mg oral tablet (20 sources) Nonsteroidal Anti-inflammatory Drug Start: 05-03-2022 End: 05-06-2022 take 800 mg by mouth three times daily Ibuprofen Discontinued 800 MG PO Three times daily May 02, 2022 11:00pm May 06, 2022 2:56pm Start: 04-14-2022 End: 07-13-2022 take 1 tablet by mouth every eight hours as needed ibuprofen (MOTRIN) 800 mg tablet Take 1 tablet by mouth every 8 hours as needed for pain. 200 tablet 0 04/14/2022 07/13/2022 Active Start: 07-14-2018 End: 09-11-2021 take 800 mg by mouth three times daily Ibuprofen Discontinued 800 MG PO Three times daily July 14, 2018 12:00am September 11, 2021 4:10pm Comment on above: [facility] hours [facility] needed for pain. Lactobacillus acidophilus (20 sources) take 1 capsule by mouth once daily LACTOBACILLUS ACIDOPHILUS (PROBIOTIC ACIDOPHILUS ORAL) Take 1 capsule by mouth once daily. 0 Suspended take 1 capsule by mouth once [place] LACTOBACILLUS ACIDOPHILUS (PROBIOTIC ACIDOPHILUS ORAL) Take 1 capsule by mouth once daily. 0 Active Comment on above: Take 1 capsule by [facility] once daily. lactobacillus combination no.4 3 billion cell cap (15 sources) Start: 02-27-2022 lactobacillus combination no.4 3 billion cell cap Take 1 capsule by mouth once daily. 30 capsule 3 02/27/2022 Active Start: 02-27-2022 End: 03-29-2022 lactobacillus combination no .4 3 billion cell cap Take 1 capsule by mouth once daily. 30 capsule 3 02/27/2022 03/29/2022 Active Comment on above: Take 1 capsule by mo [facility] once daily. levomefolate (19 sources) Start: 07-14-2018 End: 09-11-2021 Levomefolate Calcium Discontinued TABLET July 14, 2018 12:00am September 11, 2021 4:11pm Start: 07-14-2018 End: 09-11-2021 Levomefolate Calcium Discont inued TABLET July 14, 2018 1:00am September 11, 2021 5:11pm methocarbamol 500 mg oral tablet (4 sources) Muscle Relaxant Start: 09-09-2021 End: 10-09-2021 take 1 tablet by mouth every eight hours as needed methocarbamol (ROBAXIN) 500 mg tablet Take 1 tablet by mouth three times daily as needed. 90 tablet 0 09/09/2021 10/09/2021 Comment on above: [facility] daily as needed. 24 hr metoprolol succinate 50 mg extended release oral tablet (20 sources) beta-Adrenergic [place] Start: 03-30-2017 End: 11-21-2021 take 50 mg by mouth once daily in the morning Metoprolol Tartrate Active 50 MG PO Every morning March 29, 2017 11:00pm Start: 06-06-2014 End: 08-19-2023 take 50 mg by mouth once daily Metoprolol Succinate Di scontinued 50 MG PO Daily June 16, 2022 12:00am August 19, 2023 12:04pm Comment on above: Take 50 mg by mouth once daily. mirtazapine 30 mg oral tablet (20 sources) Start: 09-11-2021 End: 06-02-2022 take 30 mg by mouth once daily Mirtazapine Discontinued 30 MG PO Daily September 10, 2021 11:00pm June 02, 2022 8:51am take 2 tablets by mo [facility] every twenty-four hours Mirtazapine 15 MG 2 tablet at bedtime Orally Once a day for 30 day(s) Active morphine sulfate 15 mg oral tablet (9 sources) Opioid Agonist Start: 09-03-2022 End: 08-19-2023 take 7.5 mg by mouth every six hours Morphine Discontinued 7.5 MG PO Q6H 4 3 September 03, 2022 August 19, 2023 12:04pm Multi Vitamin TABS (1 source) Multi Vitamin TA BS TAKE 1 TABLET DAILY. Quantity: 0 Refills: 0 Ordered: 24-Oct-2022 DO Active MULTIVITS-MINERALS/F A/LYCOPENE (ONE-A-DAY MEN'S ORAL) (7 sources) MULTIVITS-MINERA LS/ FA/LYCOPENE (ONE-A-DAY MEN'S ORAL) Take by mouth. 0 Active Comment on above: Take by mouth. nitroglycerin 0.4 mg sublingual tablet (20 sources) Nitrate Vasodilator Start: 07-16-2022 Nitroglycerin 0.4 MG Sublingual Tablet Sublingual TAKE DIRECTED. Quantity: 25 Refills: 11 Ordered: 16-Jul-2022 Danisha Bran MD Start : 16-Jul-2022 Active nitroglycerin (N itrostat) 0.4 mg SL tablet Take as directed 0 Active [place] 1-Ykk-Kln-Fish Oil (Fi sh Oil) 1,000 mg (120 mg-180 mg) Capsule (19 sources) Start: 07-14-2018 End: 09-11-2021 [place] 4-Ykg-Fcf-Fish Oil (Fi sh Oil) 1,000 mg (120 mg-180 mg) Capsule Discontinued July 14, 2018 12:00am September 11, 2021 4:13pm Start: 07-14-2018 End: 09-11-2021 [place] 4-Bmy-Yvu-Fish Oil (Fi sh Oil) 1,000 mg (120 mg-180 mg) Capsule Discontinued July 14, 2018 1:00am September 11, 2021 5:13pm OTC NUTRITIONAL SUPPLEMENT (14 sources) OTC NUTRITIONAL SUPPLEMENT once daily. Tumeric 500 mg x2 0 Active OTC NUTRITIONAL SUPPLEMENT 500 mg once daily. Curcumin 0 Active Comment on above: once daily. Tumeric 500 mg x2 500 mg once daily. C urcumin OTC PRODUCT (14 sources) OTC PRODUCT 350 mg once daily. Milk thistle 0 Active OTC PRODUCT 315 mg daily at bedtime. Green Tea 0 Active Comment on above: 350 mg once daily. M ilk thistle 315 mg daily at bedt larry. Green Tea microencapsulated potassium chloride 20 meq extended release oral tablet (20 sources) Start: 2 take 1 tablet by mouth three times daily Klor-Con M20 20 MEQ Oral Tablet Extended Release TAKE 1 TABLET 3 TIMES DAILY. Quantity: 0 Refills: 0 Ordered: 22-Jan-2022 DO Start : 27-Jul-2021 Active Start: 01-25-2016 Klor-Con M20 2 0 mEq, Oral, Daily, Refills(s) 0, Leg cramps Start Date: 01/25/16 Status: Ordered Start: 03-27-2014 take 1 tablet by [facility] once daily in the morning Potassium Chloride (Klor-Con M20) 20 mEq tablet,ER particles/crystals Active 1 TAB PO Every morning March 29, 2017 11:00pm Comment on above: Take 20 mEq by mouth once daily. pregabalin 200 mg oral capsule (20 sources) Start: 12-04-2021 End: 08-04-2022 take 1 capsule by mouth three times daily Pregabalin 200 MG Oral Capsule take 1 capsule by mouth three times a day Quantity: 90 Refills: 0 Ordered: 18-Jun-2022 DO Start : 11-Feb-2022 Active Start: 09-22-2021 End: 10-22-2021 take 1 capsule by mouth twice daily Lyrica 200 mg Cap 200 mg = 1 cap(s), Oral, BID, Refills(s) 0 Start Date: 09/24/21 Status: Ordered Start: 09-11-2021 Pregabalin Act grace 200 MG PO Daily at 0730, 1530, 2330 September 10, 2021 11:00pm Start: 09-11-2021 take 100 mg by mouth once [place] y Pregabalin Active 100 MG PO Daily September 10, 2021 11:00pm take 2 capsules by [facility] once daily at bedtime Lyrica 300 MG 2 capsule 1 to 3 hours before bedtime Orally Once a day Active take 1 capsule by [facility] once daily at bedtime Lyrica 300 MG 1 capsule 1 to 3 hours before bedtime Orally Once a day Active take 1 capsule by [facility] once daily at bedtime Lyrica 200 MG 1 capsule 1 to 3 hours before bedtime Orally Once a day Active Comment on above: Take 1 capsule by mo [facility] twice daily for 30 days. Take 1 capsule by [facility] three times daily for 90 days. promethazine hydrochloride 25 mg oral tablet (20 sources) Phenothiazine Start: 04-23-20 take 1 tablet by mouth three times daily as needed Promethazine HCl - 25 MG Oral Tablet TAKE 1 TABLET 3 TIMES DAILY NEEDED. Quantity: 0 Refills: 0 Ordered: 27-May-2022 DO Start : 23-Apr-2022 Active Start: 07-14-2018 Promethazine A ctive 12.5 MG PO .as needed July 14, 2018 12:00am Start: 07-14-2018 take 25 mg by mouth once daily Promethazine Active 25 MG PO Daily July 14, 2018 12:00am Start: 07-14-2018 take 25 mg by mouth twice [place] y Promethazine Active 25 MG PO Twice daily July 14, 2018 12:00am Start: 01-25-2016 take 25 mg by mouth every six hours as needed for nausea promethazine 25 mg, Oral, q6hr, PRN nausea/vomiting, Refills(s) 0 Start Date: 01/25/16 Status: Ordered Start: 01-25-2016 take 25 mg by mouth once daily as needed for nausea promethazine 25 mg, Oral, Daily, PRN as needed for nausea/vomiting, Refills(s) 0, Nausea/Vomiting Start Date: 01/25/16 Status: Ordered Comment on above: Take 25 mg by mouth as needed. Psyllium Husk (Fiber (Psyllium Husk)) 0.4 gram Capsule (19 sources) Start: 03-30-2017 End: 09-11-2021 Psyllium Husk (Fiber (Psyllium Husk)) 0.4 gram Capsule Discontinued 1 TAB PO Daily March 29, 2017 11:00pm September 11, 2021 7:40pm Start: 03-30-2017 End: 09-11-2021 Psyllium Husk (Fiber (Psylli um Husk)) 0.4 gram Capsule Discontinued 1 TAB PO Daily March 30, 2017 12:00am September 11, 2021 8:40pm rizatriptan 10 mg oral tablet (20 sources) Serotonin-1b and Serotonin-1d Receptor Agonist Start: 12-22-2017 Maxalt 10 mg Tab 10 mg = 1 tab(s), Oral, Daily, PRN Migraine headache, may repeat dose once in 2 hours, Refills(s) 0, Migraine headache Start Date: 12/22/17 Status: Ordered take 1 tablet by michelle th every two hours as needed, then take 3 tablets by mouth every twenty-four hours as needed Rizatriptan Benzoate 10 MG Oral Tablet TAKE 1 TABLET AT ONSET OF HEADACHE. MAY REPEAT EVERY 2 HOURS NEEDED. MAXIMUM 3 TABLETS IN 24 HOURS. Quantity: 0 Refills: 0 Ordered: 24-Oct-2022 DO Active selenium 200 mcg tablet (7 sources) take 1 tablet by mouth once daily at bedtime selenium 200 mcg tablet Take 1 tablet by mouth daily at bedtime. 0 Active Comment on above: Take 1 tablet by mic[facility] th daily at bedtime. sildenafil 50 mg oral tablet (20 sources) Phosphodiesterase 5 Inhibitor Start: Comment on above: Take 50 mg by mouth as needed. 1 ml testosterone cypionate 200 mg/ml injection (20 sources) Androgen Start: Testosterone Cypionate 200 MG/ML Intramuscular Solution ADMINISTER 1 AND 1/2 milliliters intramuscularly EVERY 2 WEEKS Quantity: 12 Refills: 0 Ordered: 05-Nov-2021 DO Start : 05-Nov-2021 Active Start: 02-09-2018 TESTOSTERONE 1 Jan, 200 mg Start: 05-28-2017 TESTOSTERONE 3 0 Apr, 2017 150 mg Start: 05-05-2017 TESTOSTERONE 0 7 Apr, 2017 .75 mL Start: 04-21-2017 TESTOSTERONE 2 4 Mar, 2017 0.5 mL Start: 04-07-2017 TESTOSTERONE 1 0 Mar, 2017 0.75 mL Start: 03-30-2017 inject 150 mg by int ramuscular injection every other week Testosterone Cypionate Active 150 MG IM EVERY 2 WEEKS March 29, 2017 11:00pm Start: 03-24-2017 TESTOSTERONE 2 Feb, 75 mg Start: 03-06-2017 TESTOSTERONE 0 Feb, 150 mg Start: 02-24-2017 TESTOSTERONE 2 Jan, 150 mg Start: 02-10-2017 TESTOSTERONE 1 5 Jan, 2017 150 mg Start: 01-27-2017 TESTOSTERONE 0 1 Jan, 2017 0.75 mL Start: 01-13-2017 TESTOSTERONE 1 Dec, 0.75 mL Start: 12-26-2016 TESTOSTERONE 3 0 Nov, 2016 Start: 12-10-2016 TESTOSTERONE 1 4 Nov, 2016 150 mg Start: 11-26-2016 TESTOSTERONE 3 October, 150 mg Start: 11-12-2016 TESTOSTERONE 1 7 Oct, 2016 150 mg Start: 10-29-2016 TESTOSTERONE 0 October, 150 mg Start: 10-15-2016 TESTOSTERONE 1 9 Sep, 2016 150 mg Start: 09-29-2016 TESTOSTERONE 0 Sep, 150 mg Start: 09-24-2016 inject 1.5 mL by int ramuscular injection every other week Testosterone Cypionate 200 MG/ML 1.5 ml Intramuscular q 2 weeks Aug, Active Start: 09-24-2016 inject 1.5 mL by int ramuscular injection every other week testosterone cyp ionate (Depo-Testosterone) 200 mg/mL injection Inject 1.5 mL (300 mg) into the muscle every 14 (fourteen) days. 0 Active TESTOSTERONE INTRAMUSC. (7 sources) inject 300 mg by intramuscular injection every other week TESTOSTERONE INTRAMUSC. Inject 300 mg intramuscularly every other week. 0 Active Comment on above: Inject 300 mg intram uscularly every other week. Triamcinolone (20 sources) Corticosteroid Start: 2015 KENALOG - 10 mg Nov, 80 mg ubidecarenone (ULTRA COQ10 ORAL) (7 sources) take 50 mg by mouth once daily ubidecarenone (ULTRA COQ10 ORAL) Take 50 mg by mouth once daily. 0 Active Comment on above: Take 50 mg by mouth once daily. valACYclovir 500 mg oral tablet (20 sources) Herpesvirus Nucleoside Analog DNA Polymerase Inhibitor, Herpes Simplex Virus Nucleoside Analog DNA Polymerase Inhibitor, Herpes Zoster Virus Nucleoside Analog DNA Polymerase Inhibitor Start: 2021 valACYclovir HCl - 500 MG Oral Tablet as needed Quantity: 0 Refills: 0 Ordered: 01-Aug-2021 DO Start : 27-Jul-2021 Active Start: 05-30-2014 take 1 tablet by [facility] th in the morning Valacyclovir (Valtrex) 500 mg Tablet Active 500 MG PO As Directed March 29, 2017 11:00pm takes in the morning Comment on above: Take 500 mg by mouth as needed. Vancomycin (5 sources) Glycopeptide Antibacterial Start: End: take 1.5 g intravenously every twelve hours vancomycin (VANCOCIN) 1.5 g in D5W 250 mL Inject 250 mL intravenously q 12 [place]. 7[address] mL 0 09/22/2021 10/24/2021 Start: 09-22-2021 End: 10-24-2021 take 1.5 g intravenously every twelve hours vancomycin (VANCOCIN) 1.5 g in D5W 250 mL Inject 250 mL intravenously q 12 [place]. [id number] mL 0 09/22/2021 10/24/2021 Active Comment on above: Inject 250 mL intravenously q 12 HR. Vitamin B Complex (7 sources) take 1 tablet by mouth once daily vitamin b complex tab Take 1 tablet by mouth once daily. 5000 mcg 0 Active Comment on above: Take 1 tablet by mouth once daily. 5000 mcg Vitamin B Complex Oral Capsule (1 source) Vitamin B Comple x Oral Capsule as directed Quantity: 0 Refills: 0 Ordered: 24-Oct-2022 DO Active vitamin b12 1 mg oral tablet (20 sources) Vitamin B12 take 1 tablet by mouth once daily cyanocobalamin (VITAMIN B-12) 1,000 mcg tab Indications: Stroke (HCC) , Headache Take 1,000 mcg by mouth once daily. 0 Active Comment on above: Take 1,000 mcg by mouth once daily. Vitamin B12 1000 mcg Tab (12 sources) Start: 6 take 1 tablet by mouth once daily Vitamin B12 1000 mcg Tab 1,000 microgram = 1 tab(s), Oral, Daily, Refills(s) 0, Muscle pain Start Date: 01/25/16 Status: Ordered Vitamin D TABS (1 source) Vitamin D TABS T SRINIVAS 1 TABLET DAILY. Quantity: 0 Refills: 0 Ordered: 24-Oct-2022 DO Active Vitamin D3 1000 intl units oral tablet (1 source) Start: 6 take 2 tablets by mouth once daily Vitamin D3 1000 intl units oral tablet 2,000 International_Unit = 2 tab(s), Oral, Daily, # 30 tab(s), Refills(s) 0, Prophylaxis Start Date: 01/25/16 Status: Ordered Problems Active Problems Problem Classification Problem Date Documented Da te Episodic/Chronic Abdominal pain (20 sources) Abdominal pain; Translations: [Unspecified abdominal pain] Onset: 1 Resolved: 1 Episodic Acute and unspecified renal failure (20 sources) Renal failure syndrome; Translations: [Unspecified kidney failure] Onset: 3 Chronic Acute and unspecified renal failure (19 sources) Injury of kidney; Translations: [Acute kidney failure, unspecified] 09-11-2021 Episodic Acute cerebrovascular disease (20 sources) Cerebrovascular accident; Translations: [Thrombotic stroke] Onset: 2 Resolved: 2 01-25-2016 Chronic Comment on above: 2013- some residual thinking and talking difficulty, migraines since Adjustment disorders (20 sources) Adjustment disorder with anxious mood; Translations: [Adjustment disorder with anxiety] Onset: 5 Resolved: 2 08-18-2021 Chronic Administrative/social admission (1 source) Other specified counseling Episodic Anxiety disorders (20 sources) Panic disorder; Translations: [Panic disorder [episodic paroxysmal anxiety]] Chronic Calculus of urinary tract (20 sources) Kidney stone; Translations: [Calculus of kidney] Episodic Chronic kidney disease (20 sources) Chronic kidney disease stage 3; Translations: [CKD (chronic kidney disease) stage 3, GFR 30-59 ml/min] Onset: 2 08-18-2021 Chronic Coma; stupor; and brain damage (20 sources) Excessive daytime sleepiness - normal night sleep; Translations: [Somnolence] Episodic Complications of surgical procedures or medical care (20 sources) Dehiscence of surgical wound; Translations: [Disruption of external operation (surgical) wound, not elsewhere classified, subsequent encounter] Onset: 2 Resolved: 2 Episodic Conditions associated with dizziness or vertigo (20 sources) Dizziness; Translations: [Dizziness and giddiness] 05-03-2022 Episodic Coronary atherosclerosis and other heart disease (6 sources) Angina pectoris; Translations: [Other and unspecified angina pectoris] Onset: 3 08-28-2023 Chronic Disorders of lipid metabolism (20 sources) Familial hypercholesterolemia; Translations: [Mixed hyperlipidemia] Onset: 2 Resolved: 2 07-31-2019 Chronic Diverticulosis and diverticulitis (18 sources) Diverticular disease; Translations: [Diverticulosis of intestine, part unspecified, without perforation or abscess without bleeding] Chronic E Codes: Adverse effects of medical drugs (2 sources) Adverse effect of other [id number]-bmnl drugs, initial encounter Onset: 2 Resolved: 2 Episodic Esophageal disorders (20 sources) Gastroesophageal reflux disease; Translations: [Gastro-esophageal reflux disease without esophagitis] Onset: 2 01-25-2016 Chronic Essential hypertension (20 sources) Essential hypertension; Translations: [Essential (primary) hypertension] Onset: 2 Resolved: 2 Chronic Gastritis and duodenitis (18 sources) Bile-induced gastritis; Translations: [Other gastritis without bleeding] Episodic Headache; including migraine (20 sources) Migraine; Translations: [Migraine, unspecified, not intractable, without status migrainosus] Onset: 5 Resolved: 2 01-25-2016 Chronic Hemorrhoids (18 sources) Hemorrhoids; Translations: [Unspecified hemorrhoids] Episodic Hyperplasia of prostate (20 sources) Benign prostatic hyperplasia; Translations: [Benign prostatic hypertrophy without outflow obstruction] Onset: 2 01-25-2016 Chronic Immunizations and screening for infectious disease (1 source) Encounter for immunization Episodic Infective arthritis and osteomyelitis (except that caused by tuberculosis or sexually transmitted disease) (12 sources) Knee pyogenic arthritis 09-23-2021 Episodic Miscellaneous mental health disorders (20 sources) Chronic insomnia; Translations: [Psychophysiologic insomnia] Onset: 2 Resolved: 2 Chronic Mood disorders (20 sources) Depressive disorder; Translations: [Depression, unspecified] Onset: 2 01-25-2016 Chronic Nausea and vomiting (20 sources) Nausea; Translations: [Nausea] Onset: 2 Resolved: 2 Episodic Nonspecific chest pain (20 sources) Chest pain; Translations: [Chest pain, unspecified] 02-28-2020 Episodic Open wounds of head; neck; and trunk (11 sources) Wound dehiscence 09-25-2021 Episodic Osteoarthritis (20 sources) Osteoarthritis of right knee joint; Translations: [Osteoarthritis of knee] 04-26-2019 Chronic Other aftercare (1 source) Patient encounter status; Translations: [Encounter for therapeutic drug level monitoring] Episodic Other and ill-defined heart disease (20 sources) Heart disease; Translations: [Heart disease, unspecified] Chronic Other and ill-defined heart disease (2 sources) Heart disease, unspecified Chronic Other and unspecified benign neoplasm (18 sources) Adenomatous polyp of colon ; Translations: [Benign neoplasm of colon, unspecified] Episodic Other and unspecified benign neoplasm (18 sources) Benign neoplasm of transverse colon; Translations: [Benign neoplasm of transverse colon] Episodic Other and unspecified benign neoplasm (18 sources) Hyperplastic polyp of intestine; Translations: [Benign neoplasm of colon, unspecified] Episodic Other and unspecified benign neoplasm (2 sources) Polyp of colon Episodic Other circulatory disease (1 source) History of transient ischemic attack; Translations: [Personal history of transient ischemic attack (TIA), and cerebral infarction without residual deficits] Onset: 2 Episodic Other circulatory disease (11 sources) History of cerebrovascular accident 09-25-2021 Episodic Other circulatory disease (3 sources) History of clinical finding in subject; Translations: [Personal history of other diseases of circulatory system] Episodic Other circulatory disease (1 source) Orthostatic hypotension Episodic Other connective tissue disease (1 source) Cramp 01-25-2016 Episodic Other connective tissue disease (18 sources) Rotator cuff syndrome; Translations: [Unspecified rotator cuff tear or rupture of left shoulder, not specified as traumatic] Episodic Other connective tissue disease (16 sources) Falls; Translations: [Repeated falls] 05-03-2022 Episodic Other connective tissue disease (7 sources) Repeated falls; Translations: [Other symptoms involving nervous and musculoskeletal systems] 05-03-2022 Episodic Other connective tissue disease (1 source) Other specified soft tissue disorders Episodic Other connective tissue disease (1 source) Pain in left arm Episodic Other connective tissue disease (5 sources) Other muscle spasm; Translations: [OTHER MUSCLE SPASM] Onset: 3 Episodic Other diseases of veins and lymphatics (18 sources) Peripheral venous insufficiency; Translations: [Venous insufficiency (chronic) (peripheral)] Episodic Other disorders of stomach and duodenum (20 sources) Nonulcer dyspepsia; Translations: [Functional dyspepsia] Episodic Other disorders of stomach and duodenum (3 sources) Functional dyspepsia Onset: 2 Resolved: 2 Episodic Other endocrine disorders (18 sources) Hypogonadotropic hypogonadism; Translations: [Hypopituitarism] Chronic Other endocrine disorders (18 sources) Hypotestosteronism; Translations: [Testicular hypofunction] Chronic Other endocrine disorders (1 source) Disorder of endocrine system; Translations: [Endocrine disorder, unspecified] Onset: 2 Episodic Other gastrointestinal disorders (18 sources) Irritable bowel syndrome; Translations: [Irritable bowel syndrome without diarrhea] Chronic Other gastrointestinal disorders (18 sources) Heartburn; Translations: [Heartburn] Episodic Other gastrointestinal disorders (4 sources) Diarrhea, unspecified; Translations: [Diarrhea] Episodic Other gastrointestinal disorders (1 source) Diarrhea; Translations: [Diarrhea, unspecified] 08-19-2023 Episodic Other infections; including parasitic (12 sources) Disorder due to infection 07-18-2016 Episodic Comment on above: Left knee wound Other inflammatory condition of skin (18 sources) Lichen simplex chronicus; Translations: [Lichen simplex chronicus] Episodic Other injuries and conditions due to external causes (1 source) Delayed healing of wound; Translations: [Other injury of unspecified body region, subsequent encounter] Episodic Other liver diseases (3 sources) Steatosis of liver; Translations: [Fatty (change of) liver, not elsewhere classified] Chronic Other liver diseases (3 sources) Fatty (change of) liver, not elsewhere classified; Translations: [Fatty liver] Onset: 4 Chronic Other lower respiratory disease (1 source) Dyspnea 07-19-2019 Episodic Other lower respiratory disease (5 sources) Dyspnea on exertion; Translations: [Shortness of breath] Onset: 3 08-28-2023 Episodic Other lower respiratory disease (1 source) Snoring Episodic Other lower respiratory disease (2 sources) Shortness of breath; Translations: [Shortness of breath] Onset: 3 Episodic Other male genital disorders (18 sources) Impotence of organic origin; Translations: [Male erectile dysfunction, unspecified] Chronic Other nervous system disorders (20 sources) Chronic pain; Translations: [Other chronic pain] Onset: 2 Chronic Other nervous system disorders (20 sources) Chronic pain syndrome; Translations: [Chronic pain syndrome] Onset: 5 08-18-2021 Chronic Other nervous system disorders (18 sources) Poor concentration; Translations: [Attention and concentration deficit] Chronic Other nervous system disorders (20 sources) Ulnar neuropathy of left arm; Translations: [Lesion of ulnar nerve, left upper limb] Chronic Other nervous system disorders (13 sources) Other chronic pain; Translations: [OTHER CHRONIC PAIN] Onset: 1 Resolved: 2 Chronic Other nervous system disorders (2 sources) Lesion of ulnar nerve, left upper limb Chronic Other nervous system disorders (16 sources) Slurred speech; Translations: [Slurred speech] 05-03-2022 Episodic Other nervous system disorders (7 sources) Slurred speech; Translations: [Other speech disturbance] 05-03-2022 Episodic Other nervous system disorders (20 sources) Skin sensation disturbance; Translations: [Paresthesia of skin] Episodic Other non-traumatic joint disorders (1 source) Pain in right knee Episodic Other non-traumatic joint disorders (2 sources) Pain in left elbow Episodic Other nutritional; endocrine; and metabolic disorders (20 sources) Obesity; Translations: [Obesity, unspecified] Onset: 2 09-12-2021 Chronic Other nutritional; endocrine; and metabolic disorders (19 sources) Body mass index 30+ - obesity; Translations: [Body mass index (BMI) 37.0-37.9, adult] Chronic Other nutritional; endocrine; and metabolic disorders (20 sources) Obese class II; Translations: [Body mass index (BMI) 37.0-37.9, adult] Onset: 2 01-02-2022 Chronic Other nutritional; endocrine; and metabolic disorders (20 sources) Morbid obesity; Translations: [Morbid (severe) obesity due to excess calories] Onset: 3 05-03-2022 Chronic Other nutritional; endocrine; and metabolic disorders (20 sources) Body mass index 40+ - severely obese; Translations: [Body mass index (BMI) 40.0-44.9, adult] Chronic Other nutritional; endocrine; and metabolic disorders (7 sources) Morbid (severe) obesity due to excess calories; Translations: [MORBID SEVERE OBES D/T EXCESS DEISY] Onset: 2 Resolved: 2 Chronic Other nutritional; endocrine; and metabolic disorders (1 source) Body mass index (BMI) 39.0-39.9, adult Onset: 2 Resolved: 2 Chronic Other nutritional; endocrine; and metabolic disorders (20 sources) Metabolic syndrome X; Translations: [Metabolic syndrome] Chronic Other nutritional; endocrine; and metabolic disorders (8 sources) Obesity, unspecified; Translations: [Obesity, unspecified] Onset: 4 Chronic Other nutritional; endocrine; and metabolic disorders (5 sources) Body mass index (BMI) 45.0-49.9, adult Chronic Other nutritional; endocrine; and metabolic disorders (6 sources) Metabolic syndrome Chronic Other nutritional; endocrine; and metabolic disorders (6 sources) Body mass index (BMI) 40.0-44.9, adult Chronic Other nutritional; endocrine; and metabolic disorders (6 sources) Obese class I; Translations: [Body mass index (BMI) 31.0-31.9, adult] Chronic Other nutritional; endocrine; and metabolic disorders (1 source) Body mass index (BMI) 31.0-31.9, adult; Translations: [BMI 31.0-31.9,adult] Chronic Other skin disorders (18 sources) Dry skin; Translations: [Xerosis cutis] Episodic Other skin disorders (1 source) Impaired skin integrity; Translations: [Unspecified skin changes] Episodic Other skin disorders (1 source) Keloid scar; Translations: [Hypertrophic scar] Episodic Other upper respiratory disease (1 source) Seasonal allergic rhinitis; Translations: [Other seasonal allergic rhinitis] Onset: 2 Chronic Other upper respiratory disease (10 sources) Seasonal allergy 10-07-2021 Chronic Other upper respiratory disease (18 sources) Rhinitis; Translations: [Chronic rhinitis] Chronic Other upper respiratory disease (4 sources) Chronic rhinitis; Translations: [Chronic rhinitis] Chronic Other upper respiratory disease (4 sources) Chronic rhinitis Onset: 2 Resolved: 2 Chronic Other upper respiratory disease (20 sources) Allergic rhinitis; Translations: [Allergic rhinitis, unspecified] Chronic Other upper respiratory disease (3 sources) Allergic rhinitis, unspecified Chronic Other upper respiratory disease (1 source) Rhinitis medicamentosa; Translations: [Chronic rhinitis] Chronic Other upper respiratory infections (20 sources) Sinusitis; Translations: [Chronic sinusitis, unspecified] Chronic Other upper respiratory infections (5 sources) Acute sinusitis, unspecified; Translations: [Other acute sinusitis] Onset: 1 Resolved: 2 Episodic Peripheral and visceral atherosclerosis (12 sources) Arteriosclerotic vascular disease 07-31-2019 Chronic Residual codes; unclassified (20 sources) Sleep apnea; Translations: [Sleep apnea, unspecified] Onset: 2 01-25-2016 Chronic Comment on above: uses CPap Residual codes; unclassified (20 sources) Obstructive sleep apnea syndrome; Translations: [Obstructive sleep apnea (adult) (pediatric)] 09-11-2021 Chronic Residual codes; unclassified (18 sources) Obstructive sleep apnea (adult) (pediatric); Translations: [Obstructive sleep apnea (adult)(pediatric)] Onset: 2 Resolved: 2 Chronic Residual codes; unclassified (20 sources) Continuous positive airway pressure ventilation treatment; Translations: [Dependence on other enabling machines and devices] Chronic Residual codes; unclassified (12 sources) Chronic back pain 07-31-2019 Episodic Residual codes; unclassified (1 source) Altered mental status; Translations: [Altered mental status, unspecified] Onset: 2 Episodic Residual codes; unclassified (20 sources) Insomnia; Translations: [Insomnia, unspecified] Episodic Residual codes; unclassified (18 sources) Prostate cancer screening declined; Translations: [Procedure and treatment not carried out because of patient's decision for unspecified reasons] Episodic Residual codes; unclassified (3 sources) History of chest pain; Translations: [Personal history of other specified diseases] Episodic Residual codes; unclassified (2 sources) Insomnia, unspecified Onset: 2 Resolved: 2 Episodic Residual codes; unclassified (1 source) Other specified personal risk factors, not elsewhere classified Episodic Residual codes; unclassified (2 sources) Never smoked any substance; Translations: [Other specified health status] Onset: 3 08-28-2023 Episodic Residual codes; unclassified (2 sources) Other specified health status; Translations: [Other specified health status] Onset: 3 Episodic Schizophrenia and other psychotic disorders (20 sources) Psychosis associated with intensive care; Translations: [Unspecified psychosis not due to a substance or known physiological condition] Onset: 2 Resolved: 2 Chronic Septicemia (except in labor) (20 sources) Sepsis; Translations: [Sepsis, unspecified organism] 09-11-2021 Episodic Skin and subcutaneous tissue infections (9 sources) Cellulitis; Translations: [Cellulitis, unspecified] 09-03-2022 Episodic Spondylosis; intervertebral disc disorders; other back problems (20 sources) Post-laminectomy syndrome; Translations: [Postlaminectomy syndrome, not elsewhere classified] Onset: 2 Resolved: 2 Chronic Sprains and strains (19 sources) Strain of neck muscle; Translations: [Strain of muscle, fascia and tendon at neck level, initial encounter] 02-07-2020 Episodic Substance-related disorders (20 sources) Opioid dependence; Translations: [Opioid dependence, uncomplicated] Onset: 5 08-18-2021 Chronic Unclassified (1 source) LOW BACK PAIN, UNSPECIFIED; Translations: [LOW BACK PAIN, UNSPECIFIED] Onset: 2 Unclassified (1 source) Established Patient Onset: 2 Unclassified (1 source) Other allergy status, other than to drugs and biological substances; Translations: [Other allergy status, other than to drugs and biological substances] Onset: 4 Unclassified (1 source) Diarrhea, unspecified; Translations: [Diarrhea, unspecified] Onset: 4 Unclassified (1 source) Lesion of ulnar nerve, left upper limb; Translations: [Lesion of ulnar nerve, left upper limb] Onset: 3 Unclassified (1 source) Pain in left elbow; Translations: [Pain in left elbow] Onset: 3 Viral infection (20 sources) Herpes labialis; Translations: [Herpesviral vesicular dermatitis] 01-25-2016 Episodic Past or Other Problems Problem Classification Problem Date Documented Da te Episodic/Chronic Deficiency and other anemia (20 sources) Anemia; Translations: [Anemia, unspecified] Onset: 01-04-2022 01-04-2022 Episodic Diabetes mellitus without complication (20 sources) Impaired glucose tolerance; Translations: [Impaired glucose tolerance (oral)] Onset: 07-23-2021 Resolved: 01-28-2022 Episodic Other acquired deformities (20 sources) Lumbar spondylolisthesis; Translations: [Spondylolisthesis, lumbar region] Onset: 08-16-2021 Episodic Other acquired deformities (3 sources) Spondylolisthesis, lumbar region; Translations: [Spondylolisthesis of lumbar region] Onset: 08-16-2021 Episodic Other aftercare (4 sources) Other 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 operator (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 therapy; Translations: [Other terminal operator (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 therapy] Onset: 07-23-2021 Resolved: 01-28-2022 Episodic Other connective tissue disease (20 sources) History of lumbar fusion; Translations: [Arthrodesis status] Onset: 08-17-2021 08-18-2021 Episodic Other connective tissue disease (20 sources) Weakness of left leg; Translations: [Other symptoms and signs involving the musculoskeletal system] Onset: 11-27-2021 11-27-2021 Episodic Other connective tissue disease (1 source) Arthrodesis status; Translations: [S/P lumbar fusion] Onset: 08-18-2021 Episodic Other connective tissue disease (2 sources) Other symptoms and signs involving the musculoskeletal system; Translations: [Other musculoskeletal symptoms referable to limbs] Onset: 11-27-2021 11-27-2021 Episodic Other connective tissue disease (4 sources) Medial epicondylitis, left elbow; Translations: [Medial epicondylitis, left elbow] Onset: 11-13-2022 Episodic Other connective tissue disease (4 sources) Pain in right leg; Translations: [PAIN IN RIGHT LEG] Onset: 08-12-2022 Episodic Other connective tissue disease (1 source) Pain in left arm; Translations: [Pain in left arm] Onset: 09-03-2022 Episodic Other fractures (20 sources) Pseudoarthrosis of spine; Translations: [Unspecified fracture of unspecified lumbar vertebra, subsequent encounter for fracture with nonunion] Onset: 12-31-2021 12-31-2021 Episodic Other fractures (1 source) Unspecified fracture of unspecified lumbar vertebra, subsequent encounter for fracture with nonunion; Translations: [Lumbar pseudoarthrosis] Onset: 12-31-2021 Episodic Other gastrointestinal disorders (1 source) Right lower quadrant abdominal swelling, mass and lump Onset: 05-09-2021 Resolved: 05-09-2021 Episodic Other hematologic conditions (2 sources) Other abnormality of red blood cells; Translations: [Other abnormality of red blood cells] Onset: 04-03-2023 Episodic Other injuries and conditions due to external causes (1 source) Other injury of unspecified body region, subsequent encounter; Translations: [Wound healing, delayed] Onset: 01-30-2022 Episodic Other nervous system disorders (1 source) Paresthesia of skin; Translations: [Paresthesia of skin] Onset: 09-11-2022 Episodic Other nutritional; endocrine; and metabolic disorders (1 source) Abnormal weight loss Onset: 01-28-2022 Resolved: 01-28-2022 Episodic Other screening for suspected conditions (not mental disorders or infectious disease) (12 sources) Hypotestosteronism; Translations: [Other specified abnormal findings of blood chemistry] Onset: 03-04-2023 09-25-2021 Episodic Other skin disorders (1 source) Unspecified skin changes; Translations: [Alteration in skin integrity related to surgical incision] Onset: 01-30-2022 Episodic Residual codes; unclassified (20 sources) Delirium; Translations: [Disorientation, unspecified] Onset: 09-15-2021 09-15-2021 Episodic Residual codes; unclassified (1 source) Other specified postprocedural states Onset: 01-28-2022 Resolved: 01-28-2022 Episodic Respiratory failure; insufficiency; arrest (adult) (1 source) Respiratory failure; insufficiency; arrest (adult) Onset: 01-28-2022 Resolved: 01-28-2022 Spondylosis; intervertebral disc disorders; other back problems (20 sources) Backache; Translations: [Dorsalgia, unspecified] Onset: 05-09-2021 Resolved: 01-28-2022 Episodic Unclassified (1 source) Low back pain, unspecified M54.50 Unclassified (2 sources) Never smoked tobacco; Translations: [Never a smoker] Unclassified (1 source) Onset: 08-28-2023 08-28-2023 Results Test Name Value Interpretation Reference Range Facility Area 5 Allergens with IgEon 08-24-2023 Alternaria Alternata <0.10 Normal Class 0 [facility] Comment on above: Performed By: #### A LLERGEN 5 #### [facility] , Aureliano White Allergen <0.10 Normal Class 0 [facility] Comment on above: Performed By: #### A LLERGEN 5 #### [facility] , Aspergillis Fumigatus Allergen <0.10 Normal Class 0 [facility] Comment on above: Performed By: #### A LLERGEN 5 #### [facility] , Bermuda Grass Allergen <0.10 Normal Class 0 [facility] Comment on above: Performed By: #### A LLERGEN 5 #### [facility] , Linden Common Silver Aller <0.10 Normal Class 0 [facility] Comment on above: Performed By: #### A LLERGEN 5 #### [facility] , Cat Hair/Dander Allergen <0.10 Normal Class 0 [facility] Comment on above: Performed By: #### A LLERGEN 5 #### [facility] , [place], Mountain Allergen <0.10 Normal Class 0 [facility] Comment on above: Performed By: #### A LLERGEN 5 #### [facility] , Cladosporium Herbarum <0.10 Normal Class 0 [facility] Comment on above: Performed By: #### A LLERGEN 5 #### [facility] , CLASS DESCRIPTION Normal . [facility] Comment on above: Result Comment: Kasey eric of Specific IgE Class Description of Class ----- < 0.10 0 Negative 0.10 - 0.31 0/I Equivocal/Low 0.32 - 0.55 I Low 0.56 - 1.40 II Moderate 1.41 - 3.90 III High 3.91 - 19.00 IV Very High 19.01 - 100.00 V Very High >100.00 Very High Performed By: #### A LLERGEN 5 #### [facility] , Cockroach Vietnamese Allergen 0.14 Critically abnormal Class 0/I [facility] Comment on above: Performed By: #### A LLERGEN 5 #### [facility] , Alpine Allergen <0.10 Normal Class 0 [facility] Comment on above: Performed By: #### A LLERGEN 5 #### [facility] , D Farinae Mite Allergen <0.10 Normal Class 0 [facility] Comment on above: Performed By: #### A LLERGEN 5 #### [facility] , D Pteronyssinus Allergen <0.10 Normal Class 0 [facility] Comment on above: Performed By: #### A LLERGEN 5 #### [facility] , Dog Hair/Dander Allergen <0.10 Normal Class 0 [facility] Comment on above: Performed By: #### A LLERGEN 5 #### [facility] , Elm Tree Allergen <0.10 Normal Class 0 [facility] Comment on above: Performed By: #### A LLERGEN 5 #### [facility] , Immunoglobulin E 49 Normal 6-495 [facility] Comment on above: Performed By: #### A LLERGEN 5 #### [facility] , Maple/Titus Allergen <0.10 Normal Class 0 [facility] Comment on above: Performed By: #### A LLERGEN 5 #### [facility] , Mouse Urine Allergen <0.10 Normal Class 0 [facility] Comment on above: Result Comment: Perf ormed at: - [facility] [address] [id number] Blow Off Worker: Hernan Lozoya MD, Phone: [phone] PERFORMED BY: [facility] [address] [place] [address] PATHOLOGIST GAME TRAPPER MARJORIE WAYNE M.D. Performed By: #### A LLERGEN 5 #### [facility] , [place], White Allergen <0.10 Normal Class 0 [facility] Comment on above: Performed By: #### A LLERGEN 5 #### [facility] , [place] Tree Allergen <0.10 Normal Class 0 [facility] Comment on above: Performed By: #### A LLERGEN 5 #### [facility] , Pecan/Riverside Tree Allergen <0.10 Normal Class 0 [facility] Comment on above: Performed By: #### A LLERGEN 5 #### [facility] , Penicillium Chrysogen Mold All <0.10 Normal Class 0 [facility] Comment on above: Performed By: #### A LLERGEN 5 #### [facility] , Pigweed Allergen <0.10 Normal Class 0 [facility] Comment on above: Performed By: #### A LLERGEN 5 #### [facility] , Ragweed Short Allergen <0.10 Normal Class 0 [facility] Comment on above: Performed By: #### A LLERGEN 5 #### [facility] , Lucien Sheep Allergen <0.10 Normal Class 0 [facility] Comment on above: Performed By: #### A LLERGEN 5 #### [facility] , [place] Allergen <0.10 Normal Class 0 [facility] Comment on above: Performed By: #### A LLERGEN 5 #### [facility] , Thistle Grenadian Allergen <0.10 Normal Class 0 [facility] Comment on above: Performed By: #### A LLERGEN 5 #### [facility] , Randy Allergen <0.10 Normal Class 0 [facility] Comment on above: Performed By: #### A LLERGEN 5 #### [facility] , [place] Tree Pollen Allergen <0.10 Normal Class 0 [facility] Comment on above: Performed By: #### A LLERGEN 5 #### [facility] , Jorge 08-19-2023 L Specimen: [id number] Received: 08/19/23 Status: JULIO Regrupo Num: [id number] Spec Type: Surgical Subm Dr: John Foster MD Tissues: A Colon Biopsy (RANDOM COLON BX R/O MICROSCO) Procedures: HE/2, Gross/Micro L4 Age/ Patient Sex Location Account Attending Physician Mary Jimenez 63/M [id number] John Foster MD SPEC NUM: [id number] RECD: 08/19/23 STATUS: JULIO GONZALEZ NUM: [id number] NEYDA: 08/19/23-[address]: John Foster MD ENTERED: 08/19/23 [facility] DR: SPEC TYPE: Surgical DEPT: S ORDERED: HE/2, Gross/Micro L4 ORDERED: HE/2, Gross/Micro L4 Pathological Diagnosis Random colon biopsy: -Colonic mucosa with generally preserved mucosal glandular architecture, including occasional incidentally noted small and large lymphoid aggregates, otherwise without any abnormal stromal chronic inflammation, microscopic colitis, or any other specific or significant histopathological changes observed Clinical Information Diarrhea, rule out microscopic colitis Gross Description Received in formalin labeled with the patient's name, date of and random colon biopsy are 2 jasso soft tissue fragments, 0.4 and 0.5 cm in greatest dimensions. Entirely submitted in one cassette labeled A1. CPT Codes 84075 Specimen: [id number] Received: 08/19/23 Status: JULIO Gonzalez Num: [id number] Spec Type: Surgical Subm Dr: John Foster MD Tissues: A Colon Biopsy (RANDOM COLON BX R/O MICROSCO) Procedures: HE/2, Gross/Micro L4 Patient: Mary Jimenez [id number] (Continued) Signed (signature on file) Sammi Miller MD 08/20/23 2721 Normal [facility] Alanine aminotransferase [En zymatic activity/volume] in Serum or PlasmaOrdered By: John Foster on 07-30-2023 ALT [Catalytic activity/Vol] 20 U/L 7-52 [facility] Albumin [Mass/volume] in Ser um or Plasma by Bromocresol green (BCG) dye binding methoOrdered By: John Foster on 07-30-2023 Albumin BCG dye [Mass/Vol] 4.6 g/dL 3.5-5.7 [facility] Alkaline phosphatase [Enzyma tic activity/volume] in Serum or PlasmaOrdered By: John Foster on 07-30-2023 ALP [Catalytic activity/Vol] 57 U/L 34-104 [facility] Aspartate aminotransferase [ Enzymatic activity/volume] in Serum or PlasmaOrdered By: John Foster on 07-30-2023 AST [Catalytic activity/Vol] 16 U/L 13-39 [facility] Atypical perinuclear antineu trophil cytoplasmic antibodies measurementOrdered By: John Foster on 07-30-2023 Neutrophil cytoplasmic Ab.perinuclear.atypica l IF (S) [Titer] <1:20 titer Neg:<1:20 [facility] Comment on above: The atypical pANCA p attern has been observed in asignificant percentage of patients with ulcerative colitis,primary sclerosing cholangitis and autoimmune hepatitis. ASCA+/PANCA- Suggestive of Crohn's disease ASCA-/PANCA+ Suggestive of Ulcerative colitisPerformed at: [facility] [address] [id number] Director: Hernan Lozoya MD, Phone: [phone] at: [facility] [id number] [place], [place] [id number] Director: Humberto Farrar PhD, Phone: [phone] Felix's yeast IgA Ab [Units/ volume] in SerumOrdered By: John Foster on 07-30-2023 Felix's yeast IgA Qn (S) <20.0 Units 0.0-24.9 [facility] Comment on above: Negative <20.0 Equiv ocal 20.1 - 24.9 Positive >or= 25.0IgA and IgG antibody testing for S. cerevisiae isuseful adjunct testing for differentiating Crohn'sdisease and ulcerative colitis. Close to 80% ofCrohn's disease patients are positive for eitherIgA or IgG. In ulcerative colitis, less than 15% arepositive for IgG and less than 2% are positive forIgA. Fewer than 5% are positive for either IgG orIgA antibody, and no healthy controls had antibodyfor both. Basophils Auto (Bld) [#/Vol] Ordered By: John Foster on 07-30-2023 Basophils (Bld) [#/Vol] 0.0 10*3/uL 0.0-0.2 [facility] Basophils/100 WBC Auto (Bld) Ordered By: John Foster on 07-30-2023 Basophils/100 WBC (Bld) 0.7 % . [facility] Bilirubin.total [Mass/volume ] in Serum or PlasmaOrdered By: John Foster on 07-30-2023 Bilirubin [Mass/Vol] 0.6 mg/dL 0.3-1.0 [facility] Bowel Disorders [place] Atypical pANCA <1:20 Normal Neg:<1:20 [facility] Comment on above: Order Comment: Reaso n for Exam Encounter for long-term (current) use of medications Reason for Exam Renal failure, unspecified chronicity Result Comment: The atypical pANCA pattern has been observed in a significant percentage of patients with ulcerative colitis, primary sclerosing cholangitis and autoimmune hepatitis. ASCA+/PANCA- Suggestive of Crohn's disease ASCA-/PANCA+ Suggestive of Ulcerative colitis Performed at: [facility] [address] [id number] Blow Off Worker: Hernan Lozoya MD, Phone: [phone] Performed at: [facility] [address] [id number] Blow Off Worker: Humberto Farrar PhD, Phone: [phone] PERFORMED BY: [place] [address] PATHOLOGIST GAME TRAPPER MARJORIE WAYNE M.D. Performed By: #### R ETIC, CBC #### [address] Saccharomyces cerevisiae, IgA <20.0 Normal 0.0-24.9 [facility] Comment on above: Order Comment: Reaso n for Exam Encounter for long-term (current) use of medications Reason for Exam Renal failure, unspecified chronicity Result Comment: Nega tive <20.0 Equivocal 20.1 - 24.9 Positive >or= 25.0 IgA and IgG antibody testing for S. cerevisiae is useful adjunct testing for differentiating Crohn's disease and ulcerative colitis. Close to 80% of Crohn's disease patients are positive for either IgA or IgG. In ulcerative colitis, less than 15% are positive for IgG and less than 2% are positive for IgA. Fewer than 5% are positive for either IgG or IgA antibody, and no healthy controls had antibody for both. Performed By: #### R ETIC, CBC #### [address] Saccharomyces cerevisiae, IgG 25.1 High 0.0-24.9 [facility] Comment on above: Order Comment: Reaso n for Exam Encounter for long-term (current) use of medications Reason for Exam Renal failure, unspecified chronicity Result Comment: Nega tive <20.0 Equivocal 20.1 - 24.9 Positive >or= 25.0 Performed By: #### R ETIC, CBC #### [address] Calcium [Mass/volume] in Ser um or PlasmaOrdered By: John Foster on 07-30-2023 Calcium [Mass/Vol] 9.6 mg/dL 8.6-10.3 [facility] Calprotectin [Mass/mass] in StoolOrdered By: John Foster on 07-30-2023 Calprotectin (Stl) [Mass/Mass] 27 ug/g 0-120 [facility] Comment on above: Concentration Interp retation Follow-Up< 5 - 50 ug/g Normal None>50 -120 ug/g Borderline Re-evaluate in 4-6 weeks >120 ug/g Abnormal Repeat as clinically indicatedPerformed at: BN - [facility] [address] [id number] Director: Hernan Lozoya MD, Phone: [phone] Calprotectin, Fecalon 2023 Calprotectin, Fecal 27 Normal 0-120 [facility] Comment on above: Order Comment: Reaso n for Exam Encounter for long-term (current) use of medications Reason for Exam Renal failure, unspecified chronicity Result Comment: Conc entration Interpretation Follow-Up < 5 - 50 ug/g Normal None >50 -120 ug/g Borderline Re-evaluate in 4-6 weeks >120 ug/g Abnormal Repeat as clinically indicated Performed at: - [facility] [address] [id number] Blow Off Worker: Hernan Lozoya MD, Phone: [phone] PERFORMED BY: [place] [address] PATHOLOGIST GAME TRAPPER MARJORIE WAYNE M.D. Performed By: #### R ETIC, CBC #### [address] Carbon dioxide, total [Moles /volume] in Serum or PlasmaOrdered By: John Foster on 07-30-2023 CO2 [Moles/Vol] 27.9 mmol/L 21.0-31.0 [facility] Chloride [Moles/volume] in S irma or PlasmaOrdered By: John Foster on 07-30-2023 Chloride [Moles/Vol] 104 mmol/L 98-107 [facility] Complete Blood Count Auto Di ffon 07-30-2023 Basophils (Bld) [#/Vol] 0.0 10*3/uL Normal 0.0-0.2 [facility] Comment on above: Order Comment: Reaso n for Exam Diarrhea Result Comment: PERF ORMED BY: [place] [address] PATHOLOGIST GAME TRAPPER MARJORIE WAYNE M.D. Performed By: #### P T, LACTO SWBC, CMP, THYROID SC, CBC #### [address] #### ELASTASE STOOL, CALPROTECT, BOWEL CASC #### [facility] , Basophils/100 WBC (Bld) 0.7 % Normal . [facility] Comment on above: Order Comment: Reaso n for Exam Diarrhea Performed By: #### P T, LACTO SWBC, CMP, THYROID SC, CBC #### [address] #### ELASTASE STOOL, CALPROTECT, BOWEL CASC #### [facility] , Eosinophils (Bld) [#/Vol] 0.3 10*3/uL Normal 0.0-0.45 [facility] Comment on above: Order Comment: Reaso n for Exam Diarrhea Performed By: #### P T, LACTO SWBC, CMP, THYROID SC, CBC #### [address] #### ELASTASE STOOL, CALPROTECT, BOWEL CASC #### [facility] , Eosinophils/100 WBC (Bld) 4.7 % Normal . [facility] Comment on above: Order Comment: Reaso n for Exam Diarrhea Performed By: #### P T, LACTO SWBC, CMP, THYROID SC, CBC #### [facility] [address] [place] [address] [place] #### ELASTASE STOOL, CALPROTECT, BOWEL CASC #### [facility] , Erythrocyte distribution width (RBC) [Ratio] 13.0 % Normal 12.0-14.8 [facility] Comment on above: Order Comment: Reaso n for Exam Diarrhea Performed By: #### P T, LACTO SWBC, CMP, THYROID SC, CBC #### [address] #### ELASTASE STOOL, CALPROTECT, BOWEL CASC #### [facility] , Hematocrit (Bld) [Volume fraction] 48.4 % Normal 38.8-50.0 [facility] Comment on above: Order Comment: Reaso n for Exam Diarrhea Performed By: #### P T, LACTO SWBC, CMP, THYROID SC, CBC #### [address] #### ELASTASE STOOL, CALPROTECT, BOWEL CASC #### [facility] , Hemoglobin (Bld) [Mass/Vol] 16.7 g/dL Normal 13.0-17.0 [facility] Comment on above: Order Comment: Reaso n for Exam Diarrhea Performed By: #### P T, LACTO SWBC, CMP, THYROID SC, CBC #### [address] #### ELASTASE STOOL, CALPROTECT, BOWEL CASC #### [facility] , Lymphocytes (Bld) [#/Vol] 1.0 10*3/uL Normal 1.00-4.8 [facility] Comment on above: Order Comment: Reaso n for Exam Diarrhea Performed By: #### P T, LACTO SWBC, CMP, THYROID SC, CBC #### [address] #### ELASTASE STOOL, CALPROTECT, BOWEL CASC #### [facility] , Lymphocytes/100 WBC (Bld) 16.4 % Normal . [facility] Comment on above: Order Comment: Reaso n for Exam Diarrhea Performed By: #### P T, LACTO SWBC, CMP, THYROID SC, CBC #### [address] #### ELASTASE STOOL, CALPROTECT, BOWEL CASC #### [facility] , MCH (RBC) [Entitic mass] 31.9 pg Normal 27.5-35.2 [facility] Comment on above: Order Comment: Reaso n for Exam Diarrhea Performed By: #### P T, LACTO SWBC, CMP, THYROID SC, CBC #### [address] #### ELASTASE STOOL, CALPROTECT, BOWEL CASC #### [facility] , MCV (RBC) [Entitic vol] 92.8 fL Normal 83.5-101 [facility] Comment on above: Order Comment: Reaso n for Exam Diarrhea Performed By: #### P T, LACTO SWBC, CMP, THYROID SC, CBC #### [address] #### ELASTASE STOOL, CALPROTECT, BOWEL CASC #### [facility] , Mean Corpuscular HGB Conc 34.4 g/dL Normal 32.5-35.6 [facility] Comment on above: Order Comment: Reaso n for Exam Diarrhea Performed By: #### P T, LACTO SWBC, CMP, THYROID SC, CBC #### [address] #### ELASTASE STOOL, CALPROTECT, BOWEL CASC #### [facility] , Monocytes (Bld) [#/Vol] 0.6 10*3/uL Normal 0.0-0.8 [facility] Comment on above: Order Comment: Reaso n for Exam Diarrhea Performed By: #### P T, LACTO SWBC, CMP, THYROID SC, CBC #### [address] #### ELASTASE STOOL, CALPROTECT, BOWEL CASC #### [facility] , Monocytes/100 WBC (Bld) 9.9 % Normal . [facility] Comment on above: Order Comment: Reaso n for Exam Diarrhea Performed By: #### P T, LACTO SWBC, CMP, THYROID SC, CBC #### [address] #### ELASTASE STOOL, CALPROTECT, BOWEL CASC #### [facility] , Neutrophils (Bld) [#/Vol] 4.1 10*3/uL Normal 1.8-7.7 [facility] Comment on above: Order Comment: Reaso n for Exam Diarrhea Performed By: #### P T, LACTO SWBC, CMP, THYROID SC, CBC #### [facility] [address] [place] [address] #### ELASTASE STOOL, CALPROTECT, BOWEL CASC #### [facility] , Neutrophils/100 WBC (Bld) 68.3 % Normal . [facility] Comment on above: Order Comment: Reaso n for Exam Diarrhea Performed By: #### P T, LACTO SWBC, CMP, THYROID SC, CBC #### [facility] [address] [place] [address] #### ELASTASE STOOL, CALPROTECT, BOWEL CASC #### [facility] , NRBC% 0.1 /100{WBC} Normal 0-0.5 [facility] Comment on above: Order Comment: Reaso n for Exam Diarrhea Performed By: #### P T, LACTO SWBC, CMP, THYROID SC, CBC #### [facility] [address] [place] [address] #### ELASTASE STOOL, CALPROTECT, BOWEL CASC #### [facility] , Platelet mean volume (Bld) [Entitic vol] 9.3 fL Normal 6.6-10.1 [facility] Comment on above: Order Comment: Reaso n for Exam Diarrhea Performed By: #### P T, LACTO SWBC, CMP, THYROID SC, CBC #### [facility] [address] [place] [address] [place] #### ELASTASE STOOL, CALPROTECT, BOWEL CASC #### [facility] , Platelets (Bld) [#/Vol] 169 10*3/uL Normal 150-450 [facility] Comment on above: Order Comment: Reaso n for Exam Diarrhea Performed By: #### P T, LACTO SWBC, CMP, THYROID SC, CBC #### [address] #### ELASTASE STOOL, CALPROTECT, BOWEL CASC #### [facility] , RBC (Bld) [#/Vol] 5.22 10*6/uL Normal 3.90-5.60 [facility] Comment on above: Order Comment: Reaso n for Exam Diarrhea Performed By: #### P T, LACTO SWBC, CMP, THYROID SC, CBC #### [address] #### ELASTASE STOOL, CALPROTECT, BOWEL CASC #### [facility] , WBC (Bld) [#/Vol] 6.0 10*3/uL Normal 4.1-10.5 [facility] Comment on above: Order Comment: Reaso n for Exam Diarrhea Performed By: #### P T, LACTO SWBC, CMP, THYROID SC, CBC #### [address] #### ELASTASE STOOL, CALPROTECT, BOWEL CASC #### [facility] , Comprehensive Metabolic Pane jorge 07-30-2023 Albumin [Mass/Vol] 4.6 g/dL Normal 3.5-5.7 [facility] Comment on above: Order Comment: Reaso n for Exam Diarrhea Performed By: #### P T, LACTO SWBC, CMP, THYROID SC, CBC #### [place] [address] [place] #### ELASTASE STOOL, CALPROTECT, BOWEL CASC #### [facility] , Albumin/Globulin [Mass ratio] 2.1 {ratio} Normal [facility] Comment on above: Order Comment: Reaso n for Exam Diarrhea Performed By: #### P T, LACTO SWBC, CMP, THYROID SC, CBC #### [place] [address] [place] #### ELASTASE STOOL, CALPROTECT, BOWEL CASC #### [facility] , ALP [Catalytic activity/Vol] 57 U/L Normal 34-104 [facility] Comment on above: Order Comment: Reaso n for Exam Diarrhea Performed By: #### P T, LACTO SWBC, CMP, THYROID SC, CBC #### [facility] [address] [place] [address] #### ELASTASE STOOL, CALPROTECT, BOWEL CASC #### [facility] , ALT [Catalytic activity/Vol] 20 U/L Normal 7-52 [facility] Comment on above: Order Comment: Reaso n for Exam Diarrhea Performed By: #### P T, LACTO SWBC, CMP, THYROID SC, CBC #### [facility] [address] [place] [address] #### ELASTASE STOOL, CALPROTECT, BOWEL CASC #### [facility] , Anion gap [Moles/Vol] 12.5 mmol/L Normal 6.0-15.0 [facility] Comment on above: Order Comment: Reaso n for Exam Diarrhea Performed By: #### P T, LACTO SWBC, CMP, THYROID SC, CBC #### [facility] [address] [place] [address] #### ELASTASE STOOL, CALPROTECT, BOWEL CASC #### [facility] , AST [Catalytic activity/Vol] 16 U/L Normal 13-39 [facility] Comment on above: Order Comment: Reaso n for Exam Diarrhea Performed By: #### P T, LACTO SWBC, CMP, THYROID SC, CBC #### [facility] [address] [place] [address] [place] #### ELASTASE STOOL, CALPROTECT, BOWEL CASC #### [facility] , Bilirubin [Mass/Vol] 0.6 mg/dL Normal 0.3-1.0 [facility] Comment on above: Order Comment: Reaso n for Exam Diarrhea Performed By: #### P T, LACTO SWBC, CMP, THYROID SC, CBC #### [facility] [address] [place] [address] #### ELASTASE STOOL, CALPROTECT, BOWEL CASC #### [facility] , Calcium [Mass/Vol] 9.6 mg/dL Normal 8.6-10.3 [facility] Comment on above: Order Comment: Reaso n for Exam Diarrhea Performed By: #### P T, LACTO SWBC, CMP, THYROID SC, CBC #### [facility] [address] [place] [address] #### ELASTASE STOOL, CALPROTECT, BOWEL CASC #### [facility] , Chloride [Moles/Vol] 104 mmol/L Normal 98-107 [facility] Comment on above: Order Comment: Reaso n for Exam Diarrhea Performed By: #### P T, LACTO SWBC, CMP, THYROID SC, CBC #### [address] #### ELASTASE STOOL, CALPROTECT, BOWEL CASC #### [facility] , CO2 [Moles/Vol] 27.9 mmol/L Normal 21.0-31.0 [facility] Comment on above: Order Comment: Reaso n for Exam Diarrhea Performed By: #### P T, LACTO SWBC, CMP, THYROID SC, CBC #### [address] #### ELASTASE STOOL, CALPROTECT, BOWEL CASC #### [facility] , Creatinine [Mass/Vol] 1.45 mg/dL High 0.70-1.30 [facility] Comment on above: Order Comment: Reaso n for Exam Diarrhea Performed By: #### P T, LACTO SWBC, CMP, THYROID SC, CBC #### [facility] [address] [place] [address] [place] #### ELASTASE STOOL, CALPROTECT, BOWEL CASC #### [facility] , GFR/1.73 sq M.predicted MDRD (S/P/Bld) [Vol rate/Area] 53.811 mL/min/{1.73_m2} Normal [facility] Comment on above: Order Comment: Reaso n for Exam Diarrhea Performed By: #### P T, LACTO SWBC, CMP, THYROID SC, CBC #### [facility] [address] [place] [address] [place] #### ELASTASE STOOL, CALPROTECT, BOWEL CASC #### [facility] , Globulin (S) [Mass/Vol] 2.2 g/dL Normal [facility] Comment on above: Order Comment: Reaso n for Exam Diarrhea Performed By: #### P T, LACTO SWBC, CMP, THYROID SC, CBC #### [address] #### ELASTASE STOOL, CALPROTECT, BOWEL CASC #### [facility] , Glucose [Mass/Vol] 93 mg/dL Normal 70-100 [facility] Comment on above: Order Comment: Reaso n for Exam Diarrhea Result Comment: [facility] Glucose Reference Range is dependent on time and content of last meal. Glucose of more than 200 mg/dL in a nonstressed, ambulatory subject supports the diagnosis of Diabetes Mellitus. ADA recommended reference range Performed By: #### P T, LACTO SWBC, CMP, THYROID SC, CBC #### [place] [address] [place] #### ELASTASE STOOL, CALPROTECT, BOWEL CASC #### [facility] , Potassium [Moles/Vol] 4.4 mmol/L Normal 3.5-5.1 [facility] Comment on above: Order Comment: Reaso n for Exam Diarrhea Performed By: #### P T, LACTO SWBC, CMP, THYROID SC, CBC #### [facility] [address] [place] [address] [place] #### ELASTASE STOOL, CALPROTECT, BOWEL CASC #### [facility] , Protein [Mass/Vol] 6.8 g/dL Normal 6.4-8.9 [facility] Comment on above: Order Comment: Reaso n for Exam Diarrhea Performed By: #### P T, LACTO SWBC, CMP, THYROID SC, CBC #### [facility] [address] [place] [address] [place] #### ELASTASE STOOL, CALPROTECT, BOWEL CASC #### [facility] , Sodium [Moles/Vol] 140 mmol/L Normal 136-145 [facility] Comment on above: Order Comment: Reaso n for Exam Diarrhea Performed By: #### P T, LACTO SWBC, CMP, THYROID SC, CBC #### [facility] [address] [place] [address] [place] #### ELASTASE STOOL, CALPROTECT, BOWEL CASC #### [facility] , Urea nitrogen [Mass/Vol] 26 mg/dL High 7-25 [facility] Comment on above: Order Comment: Reaso n for Exam Diarrhea Performed By: #### P T, LACTO SWBC, CMP, THYROID SC, CBC #### [facility] [address] [place] [address] [place] #### ELASTASE STOOL, CALPROTECT, BOWEL CASC #### [facility] , Creatinine [Mass/volume] in Serum or PlasmaOrdered By: John Foster on 07-30-2023 Creatinine [Mass/Vol] 1.45 mg/dL 0.70-1.30 [facility] Elastase.pancreatic [Mass/ma ss] in StoolOrdered By: John Foster on 07-30-2023 Elastase.pancreatic (Stl) [Mass/Mass] 101 >200 [facility] Comment on above: Result Units: ug Cristina st./g Severe Pancreatic Insufficiency: <100 Moderate Pancreatic Insufficiency: 100 - 200 Normal: >200Performed at: - [facility] [address] [id number] Director: Hernan Lozoya MD, Phone: [phone] Eosinophils Auto (Bld) [#/Vo l]Ordered By: John Foster on 07-30-2023 Eosinophils (Bld) [#/Vol] 0.3 10*3/uL 0.0-0.45 [facility] Eosinophils/100 WBC Auto (Bl d)Ordered By: John Foster on 07-30-2023 Eosinophils/100 WBC (Bld) 4.7 % . [facility] Erythrocyte distribution wid th Auto (RBC) [Ratio]Ordered By: John Foster on 07-30-2023 Erythrocyte distribution width (RBC) [Ratio] 13.0 % 12.0-14.8 [facility] Globulin Calc (S) [Mass/Vol] Ordered By: John Foster on 07-30-2023 Globulin (S) [Mass/Vol] 2.2 g/dL [facility] Glucose [Mass/volume] in Ser um or PlasmaOrdered By: John Foster on 07-30-2023 Glucose [Mass/Vol] 93 mg/dL 70-100 [facility] Comment on above: ADA recommended refe rence rangeRandom Glucose Reference Range is dependent on time and content of last meal. Glucose of more than 200 mg/dL in a nonstressed, ambulatory subject supports the diagnosis of Diabetes Mellitus. Hematocrit Auto (Bld) [Volum e fraction]Ordered By: John Foster on 07-30-2023 Hematocrit (Bld) [Volume fraction] 48.4 % 38.8-50.0 [facility] Hemoglobin [Mass/volume] in BloodOrdered By: John Foster on 07-30-2023 Hemoglobin (Bld) [Mass/Vol] 16.7 g/dL 13.0-17.0 [facility] INR in Platelet poor plasma by Coagulation assayOrdered By: John Foster on 07-30-2023 INR Coag (PPP) [Relative time] 0.9 {INR} [facility] Comment on above: INR Therapeutic Rang e A) Pre- and Peroperative OAT started two weeks before surgery. NOT HIP SURGERY: 1.5 - 2.5 HIP SURGERY: 2 - 3B) Primary and secondary prevention of venous THROMBOSIS: 2 - 3C) Active venous thrombosis, pulmonary embolismand prevention of recurrent venous thrombosis: 2 - 3D) Prevention of arterial thromboembolismincluding patients with mechanical heart valves: 3 - 4.5 Lactoferrin, Stool WBCon Lactoferrin, Stool WBC Reason for Exam D iarrhea Stool Reason for Exam: Diarrhea : Stool LACTOFERRIN Negative for Fecal Lactoferrin Immune suppression may cause reduced WBC counts, leading to a false negative result. ------ Reference range = Negative PERFORMED BY: [facility] [address] [place] [address] PATHOLOGIST GAME TRAPPER MARJORIE WANYE M.D. Normal [facility] Comment on above: Performed By: #### P T, LACTO SWBC, CMP, THYROID SC, CBC #### [facility] [address] #### ELASTASE STOOL, CALPROTECT, BOWEL CASC #### [facility] , Leukocytes [#/volume] correc herbert for nucleated erythrocytes in Blood by Automated counOrdered By: John Foster on 07-30-2023 WBC corrected for nucl RBC Auto (Bld) [#/Vol] 6.0 10*3/uL 4.1-10.5 [facility] Lymphocytes Auto (Bld) [#/Vo l]Ordered By: John Foster on 07-30-2023 Lymphocytes (Bld) [#/Vol] 1.0 10*3/uL 1.00-4.8 [facility] Lymphocytes/100 WBC Auto (Bl d)Ordered By: John Foster on 07-30-2023 Lymphocytes/100 WBC (Bld) 16.4 % . [facility] MCH Auto (RBC) [Entitic mass ]Ordered By: John Foster on 07-30-2023 MCH (RBC) [Entitic mass] 31.9 pg 27.5-35.2 [facility] MCHC Auto (RBC) [Mass/Vol]Or dered By: John Foster on 07-30-2023 MCHC (RBC) [Mass/Vol] 34.4 g/dL 32.5-35.6 [facility] MCV Auto (RBC) [Entitic vol] Ordered By: John Foster on 07-30-2023 MCV (RBC) [Entitic vol] 92.8 fL 83.5-101 [facility] Monocytes Auto (Bld) [#/Vol] Ordered By: John Foster on 07-30-2023 Monocytes (Bld) [#/Vol] 0.6 10*3/uL 0.0-0.8 [facility] Monocytes/100 WBC Auto (Bld) Ordered By: John Foster on 07-30-2023 Monocytes/100 WBC (Bld) 9.9 % . [facility] Neutrophils Auto (Bld) [#/Vo l]Ordered By: John Foster on 07-30-2023 Neutrophils (Bld) [#/Vol] 4.1 10*3/uL 1.8-7.7 [facility] Neutrophils/100 WBC Auto (Bl d)Ordered By: John Foster on 07-30-2023 Neutrophils/100 WBC (Bld) 68.3 % . [facility] No Panel InformationOrdered By: John Foster on 07-30-2023 Estimated GFR (CKD-EPI) 53.811 mL/Min [facility] Creatinine Clearance (Chem N/A [facility] Nucleated erythrocytes [Pres ence] in Blood by Automated countOrdered By: John Foster on 07-30-2023 Nucleated RBC Auto Ql (Bld) 0.1 /100{WBC} 0-0.5 [facility] Pancreatic Elastase, Stoolon 07-30-2023 Pancreatic Elastase, Stool 101 Low >200 [facility] Comment on above: Order Comment: Reaso n for Exam Encounter for long-term (current) use of medications Reason for Exam Renal failure, unspecified chronicity Result Comment: Resu lt Units: ug Elast./g Severe Pancreatic Insufficiency: <100 Moderate Pancreatic Insufficiency: 100 - 200 Normal: >200 Performed at: [facility] [address] [id number] Blow Off Worker: Hernan Lozoya MD, Phone: [phone] PERFORMED BY: [address] [place] [address] PATHOLOGIST GAME TRAPPER MARJORIE WAYNE M.D. Performed By: #### R ETIC, CBC #### [facility] [address] [place] [address] Platelet mean volume Auto (B ld) [Entitic vol]Ordered By: John Foster on 07-30-2023 Platelet mean volume (Bld) [Entitic vol] 9.3 fL 6.6-10.1 [facility] Platelets Auto (Bld) [#/Vol] Ordered By: John Foster on 07-30-2023 Platelets (Bld) [#/Vol] 169 10*3/uL 150-450 [facility] Potassium [Moles/volume] in Serum or PlasmaOrdered By: John Foster on 07-30-2023 Potassium [Moles/Vol] 4.4 mmol/L 3.5-5.1 [facility] Protein [Mass/volume] in Ser um or PlasmaOrdered By: John Foster on 07-30-2023 Protein [Mass/Vol] 6.8 g/dL 6.4-8.9 [facility] Prothrombin Time INRon 07-30 INR Coag (PPP) [Relative time] 0.9 {INR} Normal [facility] Comment on above: Order Comment: Reaso n for Exam Diarrhea Result Comment: INR Therapeutic Range A) Pre- and Peroperative OAT started two weeks before surgery. NOT HIP SURGERY: 1.5 - 2.5 HIP SURGERY: 2 - 3 B) Primary and secondary prevention of venous THROMBOSIS: 2 - 3 C) Active venous thrombosis, pulmonary embolism and prevention of recurrent venous thrombosis: 2 - 3 D) Prevention of arterial thromboembolism including patients with mechanical heart valves: 3 - 4.5 PERFORMED BY: [place] [address] PATHOLOGIST GAME TRAPPER MARJORIE WAYNE M.D. Performed By: #### P T, LACTO SWBC, CMP, THYROID SC, CBC #### [facility] [address] [place] [address] #### ELASTASE STOOL, CALPROTECT, BOWEL CASC #### [facility] , PT Coag (PPP) [Time] 11.0 s Normal 9.0-12.9 [facility] Comment on above: Order Comment: Reaso n for Exam Diarrhea Result Comment: A he matocrit value greater than 55% may lead to inaccurate results in coagulation testing. Patients having hematocrit values >55% require a special collection tube for coagulation studies. Please contact the laboratory at [phone] for redraw instructions. Performed By: #### P T, LACTO SWBC, CMP, THYROID SC, CBC #### [facility] [address] [place] [address] #### ELASTASE STOOL, CALPROTECT, BOWEL CASC #### [facility] , Prothrombin time (PT)Ordered By: John Foster on 07-30-2023 PT Coag (PPP) [Time] 11.0 s 9.0-12.9 [facility] Comment on above: A hematocrit value g reater than 55% may lead to inaccurate results in coagulation testing. Patients having hematocrit values >55% require a special collection tube for coagulation studies. Please contact the laboratory at [phone] for redraw instructions. RBC Auto (Bld) [#/Vol]Ordere d By: oJhn Foster on 07-30-2023 RBC (Bld) [#/Vol] 5.22 10*6/uL 3.90-5.60 [facility] Saccharomyces cerevisiae IgG serumOrdered By: John Foster on 07-30-2023 Felix's yeast IgG Qn (S) 25.1 Units 0.0-24.9 [facility] Comment on above: Negative <20.0 Equiv ocal 20.1 - 24.9 Positive >or= 25.0 Serum or plasma albumin/glob ulin mass ratioOrdered By: John Foster on 07-30-2023 Albumin/Globulin [Mass ratio] 2.1 {ratio} [facility] Serum or plasma anion gap de terminationOrdered By: John Foster on 07-30-2023 Anion gap [Moles/Vol] 12.5 mmol/L 6.0-15.0 [facility] Sodium [Moles/volume] in Ser um or PlasmaOrdered By: John Foster on 07-30-2023 Sodium [Moles/Vol] 140 mmol/L 136-145 [facility] Stool lactoferrin detectionO rdered By: John Foster on 07-30-2023 Lactoferrin Ql (Stl) [facility] THYROID SCREENon 07-30-2023 Free T4 [Mass/Vol] 0.70 ng/dL Normal 0.61-1.12 [facility] Comment on above: Order Comment: Reaso n for Exam Encounter for long-term (current) use of medications Reason for Exam Renal failure, unspecified chronicity Performed By: #### R ETIC, CBC #### [facility] [address] TSH Qn 3.04 m[IU]/L Normal 0.45-5.33 [facility] Comment on above: Order Comment: Reaso n for Exam Encounter for long-term (current) use of medications Reason for Exam Renal failure, unspecified chronicity Result Comment: PERF ORMED BY: [facility] [address] [place] [address] PATHOLOGIST GAME TRAPPER MARJORIE WAYNE M.D. Performed By: #### R ETIC, CBC #### [facility] [address] Thyrotropin [Units/volume] i n Serum or PlasmaOrdered By: John Foster on 07-30-2023 TSH Qn 3.04 m[IU]/L 0.45-5.33 [facility] Thyroxine (T4) free [Mass/vo lume] in Serum or PlasmaOrdered By: John Foster on 07-30-2023 Free T4 [Mass/Vol] 0.70 ng/dL 0.61-1.12 [facility] Urea nitrogen [Mass/volume] in Serum or PlasmaOrdered By: John Foster on 07-30-2023 Urea nitrogen [Mass/Vol] 26 mg/dL 7-25 [facility] WBC Auto (Bld) [#/Vol]Ordere d By: John Foster on 07-30-2023 WBC (Bld) [#/Vol] 6.0 10*3/uL 4.1-10.5 [facility] US liveron 07-28-2023 US liver [facility] [place] [address] [place] [address] Ultrasound Report Signed Patient: Mary Jimenez MR#: [id number] : 1960 Acct:[id number] Age/Sex: 63 / M ADM Date: 07/28/23 Loc: Room: Type: [facility] Attending Dr: John Foster MD Ordering Provider: John Foster MD Date of Service: 07/28/23 US/US liver: Fatty liver Copies to: John Foster MD Liver ultrasound HISTORY: Fatty liver. COMPARISON: None Negative ultrasound Stapleton's sign reported. COMMON BILE DUCT: Normal caliber. No intraluminal abnormality. LIVER CONTOUR: Normal. LIVER PARENCHYMA: Normal echogenicity HEPATIC LESION: None INTRAHEPATIC BILIARY DUCTAL DILATATION No ductal dilatation identified. GALLSTONES: No shadowing gallstones. GALLBLADDER SLUDGE: No gallbladder sludge. GALLBLADDER WALL: Normal thickness PERICHOLECYSTIC FLUID: None Pancreas: There is obscuration of the tail of pancreas without pancreatic abnormality seen. PORTAL VEIN: Normal blood flow. Liver size: Normal RIGHT anechoic renal cyst measuring up to 2.8 cm. No RIGHT hydronephrosis identified. US/US liver IMPRESSION: Unremarkable liver. No biliary duct dilatation. Impression dictated by: Eagle Prince M.D.07/28/2023 10:01 AM Dictation Location: [place] [address] Tech: Shireen Mcnair Transcribed By: ISIDRO 07/28/23 1001 Dictated By: Eagle Prince DO 07/28/23 0955 Signed By: 07/28/23 1001 Normal [facility] MRI Spine Lumbar w/ + w/o Co ntraston 05-29-2023 MRI Spine Lumbar w/ + w/o Contrast Exam Date/Time: 05/28/2023 14:36 EST Reason for Exam: M54.16 Report IMPRESSION: POSTSURGICAL AND DEGENERATIVE CHANGES OF THE LUMBAR SPINE WITH MILD INTERVAL PROGRESSION OF LUMBAR SPINE DEGENERATIVE CHANGES. EXAM: MRI of the lumbar spine without and with contrast History: Back pain. Left leg pain. Technique: Multiplanar multisequence MRI of the lumbar spine was obtained without and with intravenous contrast. Comparison: MRI lumbar spine 05/28/2022 Findings: The conus medullaris ends normally. The alignment of the lumbar spine is anatomic. The vertebral body heights are well maintained. There is no aggressive bone marrow signal abnormality. Postsurgical changes of posterior lumbar spine fusion and posterior decompression at L4-S1. Interval decrease in size of a fluid collection within the posterior soft tissues most compatible with postoperative seroma now measuring up to 3.8 cm in greatest dimension. No pathologic enhancement. L1-L2: Small disc bulge with tiny superimposed central disc protrusion. Moderate facet arthropathy. No neuroforaminal or spinal canal stenosis. L2-L3: Small disc bulge. Mild facet arthropathy. Moderate left neuroforaminal stenosis. No spinal canal stenosis. L3-L4: Small disc bulge. Moderate facet arthropathy. Mild bilateral neuroforaminal stenosis. No spinal canal stenosis. L4-L5: Moderate facet arthropathy. Mild left neuroforaminal stenosis. No spinal canal stenosis. L5-S1: Moderate facet arthropathy. Moderate bilateral neuroforaminal stenosis. Report Ordering Provider: NATANAEL ARNOLD FINAL REPORT Dictated: 05/29/2023 11:59 am Nahid Moore DO Signed (Electronic Signature): 05/29/2023 11:59 am Signed by: Nahid Moore DO Transcribed by: MARGAUX Technologist: MARLINE Technical Comments [employer] Contrast amount in ml's: 20 Normal [facility] CHEMISTRYOrdered By: SYSTEM SYSTEM on 05-28-2023 Creatinine [Mass/Vol] 1.5 mg/dL High 0.5 - 1.3 mg/dL [facility] [place] Remisol GFR/1.73 sq M.predicted among non-blacks MDRD (S/P/Bld) [Vol rate/Area] 52 mL/min/1.73 m2 Low >=59mL/min/ 1.73 m2 [facility] [place] Chem S Comment on above: Interpretive Data: C hronic kidney disease could be indicated at eGFR's of less than 60 mL/min/1.73m2. Kidney failure is indicated at less than 15 mL/min/1.73m2. Consent for Treatmenton 05-01 Consent for Treatment [id number] Normal [facility] Creatinineon 05-28-2023 Creatinine [Mass/Vol] 1.5 mg/dL High 0.5-1.3 [facility] Comment on above: Performed By: #### 2 [id number], [id number] #### [facility] [address] [place] [address] RAD - MRI Screening Formon 1 07-28-2022 RAD - MRI Screening Form [id number] Normal [facility] eGFRon 05-28-2023 GFR/1.73 sq M.predicted among non-blacks MDRD (S/P/Bld) [Vol rate/Area] 52 mL/min/1.73 m2 Low >=59 [facility] Comment on above: Order Comment: Order added by Discern Expert. Result Comment: Assistant Food Service Manager erin kidney disease could be indicated at eGFR's of less than 60 mL/min/1.73m2. Kidney failure is indicated at less than 15 mL/min/1.73m2. Performed By: #### 2 [id number], [id number] #### [facility] [address] [place] [address] Physician Orderon 05-27-2023 Physician Order [id number] Normal [facility] Physician Orderon 05-22-2023 Physician Order [id number] F Normal [facility] A1C with Estimated Average G luon 04-03-2023 Glucose [Mass/Vol] 108 mg/dL Normal [facility] Comment on above: Order Comment: Reaso n for Exam Impaired glucose tolerance Result Comment: PERF ORMED BY: [facility] [address] [place] [address] PATHOLOGIST GAME TRAPPER MARJORIE WAYNE M.D. Performed By: #### C BC, CUBLD #### [facility] [address] HbA1c (Bld) [Mass fraction] 5.4 % Normal 4.3-5.6 [facility] Comment on above: Order Comment: Reaso n for Exam Impaired glucose tolerance Result Comment: Incr eased risk for diabetes: 5.7 - 6.4 diabetes: >6.4 glycemic control for adults with diabetes: <7.0 Performed By: #### C BC, CUBLD #### [facility] [address] [place] [address] [facility] Basic Metabolic Panelon 10-0 Anion gap [Moles/Vol] 11.4 mmol/L Normal 6.0-15.0 [facility] Comment on above: Order Comment: Reaso n for Exam Encounter for long-term (current) use of medications Reason for Exam Renal failure, unspecified chronicity Performed By: #### R ETIC, CBC #### [facility] [address] [place] [id number] [facility] Calcium [Mass/Vol] 9.0 mg/dL Normal 8.6-10.3 [facility] Comment on above: Order Comment: Reaso n for Exam Encounter for long-term (current) use of medications Reason for Exam Renal failure, unspecified chronicity Performed By: #### R ETIC, CBC #### [facility] [address] [place] [address] [place] Chloride [Moles/Vol] 103 mmol/L Normal 98-107 [facility] Comment on above: Order Comment: Reaso n for Exam Encounter for long-term (current) use of medications Reason for Exam Renal failure, unspecified chronicity Performed By: #### R ETIC, CBC #### [facility] [address] [place] [address] [place] CO2 [Moles/Vol] 29.0 mmol/L Normal 21.0-31.0 [facility] Comment on above: Order Comment: Reaso n for Exam Encounter for long-term (current) use of medications Reason for Exam Renal failure, unspecified chronicity Performed By: #### R ETIC, CBC #### [facility] [address] [place] [address] [place] Creatinine [Mass/Vol] 1.38 mg/dL High 0.70-1.30 [facility] Comment on above: Order Comment: Reaso n for Exam Encounter for long-term (current) use of medications Reason for Exam Renal failure, unspecified chronicity Performed By: #### R ETIC, CBC #### [facility] [address] [place] [address] [place] GFR/1.73 sq M.predicted MDRD (S/P/Bld) [Vol rate/Area] 57.460 mL/min/{1.73_m2} Normal [facility] Comment on above: Order Comment: Reaso n for Exam Encounter for long-term (current) use of medications Reason for Exam Renal failure, unspecified chronicity Performed By: #### R ETIC, CBC #### [facility] [address] [place] [id number] [place] Glucose [Mass/Vol] 107 mg/dL High 70-100 [facility] Comment on above: Order Comment: Reaso n for Exam Encounter for long-term (current) use of medications Reason for Exam Renal failure, unspecified chronicity Result Comment: [facility] Glucose Reference Range is dependent on time and content of last meal. Glucose of more than 200 mg/dL in a nonstressed, ambulatory subject supports the diagnosis of Diabetes Mellitus. ADA recommended reference range Performed By: #### R ETIC, CBC #### [facility] [address] [place] [id number] [place] Potassium [Moles/Vol] 4.4 mmol/L Normal 3.5-5.1 [facility] Comment on above: Order Comment: Reaso n for Exam Encounter for long-term (current) use of medications Reason for Exam Renal failure, unspecified chronicity Performed By: #### R ETIC, CBC #### [facility] [address] [place] [address] [place] Sodium [Moles/Vol] 139 mmol/L Normal 136-145 [facility] Comment on above: Order Comment: Reaso n for Exam Encounter for long-term (current) use of medications Reason for Exam Renal failure, unspecified chronicity Performed By: #### R ETIC, CBC #### [facility] [address] [place] [id number] [place] Urea nitrogen [Mass/Vol] 22 mg/dL Normal 7-25 [facility] Comment on above: Order Comment: Reaso n for Exam Encounter for long-term (current) use of medications Reason for Exam Renal failure, unspecified chronicity Performed By: #### R ETIC, CBC #### [facility] [address] Complete Blood Count Auto Di ffon 04-03-2023 Basophils (Bld) [#/Vol] 0.0 10*3/uL Normal 0.0-0.2 [facility] Comment on above: Order Comment: Reaso n for Exam Encounter for long-term (current) use of medications Reason for Exam Renal failure, unspecified chronicity Performed By: #### R ETIC, CBC #### [facility] [address] Basophils/100 WBC (Bld) 0.7 % Normal . [facility] Comment on above: Order Comment: Reaso n for Exam Encounter for long-term (current) use of medications Reason for Exam Renal failure, unspecified chronicity Performed By: #### R ETIC, CBC #### [facility] [address] [place] [address] [place] Eosinophils (Bld) [#/Vol] 0.2 10*3/uL Normal 0.0-0.45 [facility] Comment on above: Order Comment: Reaso n for Exam Encounter for long-term (current) use of medications Reason for Exam Renal failure, unspecified chronicity Performed By: #### R ETIC, CBC #### [facility] [address] [place] [address] [place] Eosinophils/100 WBC (Bld) 3.2 % Normal . [facility] Comment on above: Order Comment: Reaso n for Exam Encounter for long-term (current) use of medications Reason for Exam Renal failure, unspecified chronicity Performed By: #### R ETIC, CBC #### [facility] [address] Erythrocyte distribution width (RBC) [Ratio] 13.4 % Normal 12.0-14.8 [facility] Comment on above: Order Comment: Reaso n for Exam Encounter for long-term (current) use of medications Reason for Exam Renal failure, unspecified chronicity Performed By: #### R ETIC, CBC #### [address] Hematocrit (Bld) [Volume fraction] 48.4 % Normal 38.8-50.0 [facility] Comment on above: Order Comment: Reaso n for Exam Encounter for long-term (current) use of medications Reason for Exam Renal failure, unspecified chronicity Performed By: #### R ETIC, CBC #### [address] Hemoglobin (Bld) [Mass/Vol] 16.4 g/dL Normal 13.0-17.0 [facility] Comment on above: Order Comment: Reaso n for Exam Encounter for long-term (current) use of medications Reason for Exam Renal failure, unspecified chronicity Performed By: #### R ETIC, CBC #### [address] Lymphocytes (Bld) [#/Vol] 0.9 10*3/uL Low 1.00-4.8 [facility] Comment on above: Order Comment: Reaso n for Exam Encounter for long-term (current) use of medications Reason for Exam Renal failure, unspecified chronicity Performed By: #### R ETIC, CBC #### [address] Lymphocytes/100 WBC (Bld) 15.5 % Normal . [facility] Comment on above: Order Comment: Reaso n for Exam Encounter for long-term (current) use of medications Reason for Exam Renal failure, unspecified chronicity Performed By: #### R ETIC, CBC #### [address] MCH (RBC) [Entitic mass] 32.7 pg Normal 27.5-35.2 [facility] Comment on above: Order Comment: Reaso n for Exam Encounter for long-term (current) use of medications Reason for Exam Renal failure, unspecified chronicity Performed By: #### R ETIC, CBC #### [address] [place] [address] [place] MCV (RBC) [Entitic vol] 96.4 fL Normal 83.5-101 [facility] Comment on above: Order Comment: Reaso n for Exam Encounter for long-term (current) use of medications Reason for Exam Renal failure, unspecified chronicity Performed By: #### R ETIC, CBC #### [address] Mean Corpuscular HGB Conc 34.0 g/dL Normal 32.5-35.6 [facility] Comment on above: Order Comment: Reaso n for Exam Encounter for long-term (current) use of medications Reason for Exam Renal failure, unspecified chronicity Performed By: #### R ETIC, CBC #### [address] Monocytes (Bld) [#/Vol] 0.7 10*3/uL Normal 0.0-0.8 [facility] Comment on above: Order Comment: Reaso n for Exam Encounter for long-term (current) use of medications Reason for Exam Renal failure, unspecified chronicity Performed By: #### R ETIC, CBC #### [facility] [address] [place] [address] [place] Monocytes/100 WBC (Bld) 11.6 % Normal . [facility] Comment on above: Order Comment: Reaso n for Exam Encounter for long-term (current) use of medications Reason for Exam Renal failure, unspecified chronicity Performed By: #### R ETIC, CBC #### [facility] [address] [place] [address] [place] Neutrophils (Bld) [#/Vol] 3.9 10*3/uL Normal 1.8-7.7 [facility] Comment on above: Order Comment: Reaso n for Exam Encounter for long-term (current) use of medications Reason for Exam Renal failure, unspecified chronicity Performed By: #### R ETIC, CBC #### [address] Neutrophils/100 WBC (Bld) 69.0 % Normal . [facility] Comment on above: Order Comment: Reaso n for Exam Encounter for long-term (current) use of medications Reason for Exam Renal failure, unspecified chronicity Performed By: #### R ETIC, CBC #### [facility] [address] NRBC% 0.3 /100{WBC} Normal 0-0.5 [facility] Comment on above: Order Comment: Reaso n for Exam Encounter for long-term (current) use of medications Reason for Exam Renal failure, unspecified chronicity Performed By: #### R ETIC, CBC #### [facility] [address] Platelet mean volume (Bld) [Entitic vol] 9.4 fL Normal 6.6-10.1 [facility] Comment on above: Order Comment: Reaso n for Exam Encounter for long-term (current) use of medications Reason for Exam Renal failure, unspecified chronicity Performed By: #### R ETIC, CBC #### [facility] [address] Platelets (Bld) [#/Vol] 171 10*3/uL Normal 150-450 [facility] Comment on above: Order Comment: Reaso n for Exam Encounter for long-term (current) use of medications Reason for Exam Renal failure, unspecified chronicity Performed By: #### R ETIC, CBC #### [facility] [address] RBC (Bld) [#/Vol] 5.02 10*6/uL Normal 3.90-5.60 [facility] Comment on above: Order Comment: Reaso n for Exam Encounter for long-term (current) use of medications Reason for Exam Renal failure, unspecified chronicity Performed By: #### R ETIC, CBC #### [facility] [address] WBC (Bld) [#/Vol] 5.6 10*3/uL Normal 4.1-10.5 [facility] Comment on above: Order Comment: Reaso n for Exam Encounter for long-term (current) use of medications Reason for Exam Renal failure, unspecified chronicity Performed By: #### R ETIC, CBC #### [facility] [address] [place] [address] [facility] Ferritinon 04-03-2023 Ferritin [Mass/Vol] 42.9 ng/mL Normal 23.9-336.2 [facility] Comment on above: Order Comment: Reaso n for Exam Encounter for long-term (current) use of medications Reason for Exam Renal failure, unspecified chronicity Performed By: #### R ETIC, CBC #### [facility] [address] [place] [id number] [facility] Hepatic Panelon 04-03-2023 Albumin [Mass/Vol] 4.3 g/dL Normal 3.5-5.7 [facility] Comment on above: Order Comment: Reaso n for Exam Encounter for long-term (current) use of medications Reason for Exam Renal failure, unspecified chronicity Performed By: #### R ETIC, CBC #### [facility] [address] Albumin/Globulin [Mass ratio] 2.0 {ratio} Normal [facility] Comment on above: Order Comment: Reaso n for Exam Encounter for long-term (current) use of medications Reason for Exam Renal failure, unspecified chronicity Performed By: #### R ETIC, CBC #### [facility] [address] [place] [id number] [facility] ALP [Catalytic activity/Vol] 62 U/L Normal 34-104 [facility] Comment on above: Order Comment: Reaso n for Exam Encounter for long-term (current) use of medications Reason for Exam Renal failure, unspecified chronicity Performed By: #### R ETIC, CBC #### [facility] [address] [place] [address] [place] ALT [Catalytic activity/Vol] 20 U/L Normal 7-52 [facility] Comment on above: Order Comment: Reaso n for Exam Encounter for long-term (current) use of medications Reason for Exam Renal failure, unspecified chronicity Performed By: #### R ETIC, CBC #### [facility] [address] [place] [id number] [place] AST [Catalytic activity/Vol] 14 U/L Normal 13-39 [facility] Comment on above: Order Comment: Reaso n for Exam Encounter for long-term (current) use of medications Reason for Exam Renal failure, unspecified chronicity Performed By: #### R ETIC, CBC #### [facility] [address] [place] [address] [place] Bilirubin [Mass/Vol] 0.4 mg/dL Normal 0.3-1.0 [facility] Comment on above: Order Comment: Reaso n for Exam Encounter for long-term (current) use of medications Reason for Exam Renal failure, unspecified chronicity Performed By: #### R ETIC, CBC #### [facility] [address] [place] [address] [place] Bilirubin,Indirect 0.3 mg/dL Normal [facility] Comment on above: Order Comment: Reaso n for Exam Encounter for long-term (current) use of medications Reason for Exam Renal failure, unspecified chronicity Performed By: #### R ETIC, CBC #### [facility] [address] [place] [address] [place] Bilirubin.indirect [Mass/Vol] 0.10 mg/dL Normal 0.03-0.18 [facility] Comment on above: Order Comment: Reaso n for Exam Encounter for long-term (current) use of medications Reason for Exam Renal failure, unspecified chronicity Performed By: #### R ETIC, CBC #### [facility] [address] [place] [id number] [place] Globulin (S) [Mass/Vol] 2.2 g/dL Normal [facility] Comment on above: Order Comment: Reaso n for Exam Encounter for long-term (current) use of medications Reason for Exam Renal failure, unspecified chronicity Performed By: #### R ETIC, CBC #### [facility] [address] [place] [id number] [place] Protein [Mass/Vol] 6.5 g/dL Normal 6.4-8.9 [facility] Comment on above: Order Comment: Reaso n for Exam Encounter for long-term (current) use of medications Reason for Exam Renal failure, unspecified chronicity Performed By: #### R ETIC, CBC #### [facility] [address] [place] [address] [place] Lipid Panelon 04-03-2023 Cholesterol [Mass/Vol] 136 mg/dL Low 140-200 [facility] Comment on above: Order Comment: Reaso n for Exam Encounter for long-term (current) use of medications Reason for Exam Renal failure, unspecified chronicity Result Comment: Chol less than 200 mg/dl low risk Chol 201-239 mg/dl borderline risk Chol 240 mg/dl and greater high risk Performed By: #### R ETIC, CBC #### [facility] [address] [place] [id number] [facility] Cholesterol in HDL [Mass/Vol] 44 mg/dL Normal 23-92 [facility] Comment on above: Order Comment: Reaso n for Exam Encounter for long-term (current) use of medications Reason for Exam Renal failure, unspecified chronicity Result Comment: HDL CHOL ATP-III CLASSIFICATION Cardiovascular Risk HDL > or equal to 60 mg/dL LOW HDL < 40 mg/dL HIGH Performed By: #### R ETIC, CBC #### [facility] [address] [place] [id number] [facility] Cholesterol.total/Chol esterol in HDL [Mass ratio] 3.1 {ratio} Normal <5.0 [facility] Comment on above: Order Comment: Reaso n for Exam Encounter for long-term (current) use of medications Reason for Exam Renal failure, unspecified chronicity Result Comment: PERF ORMED BY: [place] [address] PATHOLOGIST GAME TRAPPER MARJORIE WAYNE M.D. Performed By: #### R ETIC, CBC #### [facility] [address] [place] [id number] [facility] LDL Cholesterol,Calculated 66 mg/dL Normal 0-100 [facility] Comment on above: Order Comment: Reaso n for Exam Encounter for long-term (current) use of medications Reason for Exam Renal failure, unspecified chronicity Result Comment: LDL ATP III CLASSIFICATION LDL less than 100 mg/dL Optimal LDL 100-129 mg/dL Near or above optimal LDL 130-159 mg/dL Borderline high LDL 160-189 mg/dL High LDL greater than 189 mg/dL Very high Performed By: #### R ETIC, CBC #### [facility] [address] Triglyceride w/Reflex 128 mg/dL Normal 0-149 [facility] Comment on above: Order Comment: Reaso n for Exam Encounter for long-term (current) use of medications Reason for Exam Renal failure, unspecified chronicity Result Comment: TRIG ATP III CLASSIFICATION TRIG less than 150 mg/dL Normal TRIG 150-199 mg/dL Borderline high TRIG 200-500 mg/dL High TRIG greater than 500 mg/dL Very high Standard traceable to the Center for Disease Conrtrol and Prevention (CDC) test method. Performed By: #### R ETIC, CBC #### [facility] [address] VLDL CHOLESTEROL 25 mg/dL Normal [facility] Comment on above: Order Comment: Reaso n for Exam Encounter for long-term (current) use of medications Reason for Exam Renal failure, unspecified chronicity Performed By: #### R ETIC, CBC #### [facility] [address] Reticulocyte Counton 10-06-2 023 Reticulocyte Number 0.100 10*6/uL High 0.024-0.084 [facility] Comment on above: Order Comment: Reaso n for Exam Encounter for long-term (current) use of medications Reason for Exam Renal failure, unspecified chronicity Result Comment: PERF ORMED BY: [place] [address] PATHOLOGIST GAME TRAPPER MARJORIE WANYE M.D. Performed By: #### R ETIC, CBC #### [facility] [address] [place] [address] [place] Reticulocyte Percent 2.0 % High 0.5-1.5 [facility] Comment on above: Order Comment: Reaso n for Exam Encounter for long-term (current) use of medications Reason for Exam Renal failure, unspecified chronicity Performed By: #### R ETIC, CBC #### [facility] [address] [place] [address] [place] Hemoglobin [Mass/volume] in BloodOrdered By: Rosey Dubose on 03-04-2023 Hemoglobin (Bld) [Mass/Vol] 16.3 g/dL Normal 13.0-17.0 [facility] Comment on above: Result Comment: PERF ORMED BY: [address] [place] [address] PATHOLOGIST GAME TRAPPER MARJORIE WAYNE M.D. Performed By: #### A BUSHRA 5 #### [facility] , PSA Total (Not a Screen)on 0 03-04-2023 PSA Total (Not a Screen) 0.110 ng/mL Normal 0.000-4.000 [facility] Comment on above: Result Comment: PERF ORMED BY: [address] [place] [address] PATHOLOGIST GAME TRAPPER MARJORIE WAYNE M.D. Performed By: #### A BUSHRA 5 #### [facility] , Prostate specific Ag [Mass/v olume] in Serum or PlasmaOrdered By: Rosey Dubose on 03-04-2023 Prostate specific Ag [Mass/Vol] 0.110 ng/mL 0.000-4.000 [facility] Testosteroneon 03-04-2023 Testosterone 2.90 ng/mL Normal 1.75-7.81 [facility] Comment on above: Result Comment: PERF ORMED BY: [address] [place] [address] PATHOLOGIST GAME TRAPPER MARJORIE WAYNE M.D. Performed By: #### A BUSHRA 5 #### [facility] , Testosterone [Mass/volume] i n Serum or PlasmaOrdered By: Rosey Dubose on 03-04-2023 Testosterone [Mass/Vol] 2.90 ng/mL 1.75-7.81 [facility] Thyroid Stimulating Hormoneo n 12-18-2022 TSH Qn 3.02 m[IU]/L Normal 0.45-5.33 [facility] Comment on above: Result Comment: PERF ORMED BY: [place] [address] PATHOLOGIST GAME TRAPPER MARJORIE WAYNE M.D. Performed By: #### C JAVIER DIOR #### [address] Thyrotropin [Units/volume] i n Serum or PlasmaOrdered By: Rafael Holbrook on 12-18-2022 TSH Qn 3.02 m[IU]/L 0.45-5.33 [facility] XR LSPINE W_OBLS AND FLEX_EX Ton 11-26-2022 XR LSPINE W_OBLS AND FLEX_EXT EXAMINATION: XR LSPINE W_OBLS AND FLEX_EXT HISTORY: Post-laminectomy syndrome ; chronic low back pain COMPARISON: MRI L-spine 05/28/2022 FINDINGS: BONES: Posterior mechanical fusion L4-5-S1 and fusion of sacroiliac joints. Minimal grade 1 anterior listhesis of L4 on 5; no change between neutral, flexion, extension. Normal height and alignment of vertebral bodies. Moderate degenerative facet arthropathy L3-4 through L5-S1. DISC SPACES: Intervertebral disc spacers at L4-5, L5-S1, with mild disc height reduction at both levels. PARASPINOUS: Neurostimulator with short electrodes, with both confined to the subcutaneous fat posterior to the L4-5 level. OTHER: Negative. IMPRESSION: 1. Mechanical fusion of lower lumbar spine and sacroiliac joints without evidence of hardware failure. 2. No appreciable acute abnormality. Electronically authenticated by: SE STILL Date: 2022-11-26 07:41 Normal [facility] MR elbow LT wo conon 023 MR elbow LT wo con [facility] [place] [address] MRI Report Signed Patient: Mary Jimenez MR#: [id number] : 1960 Acct:[id number] Age/Sex: 62 / M ADM Date: 11/13/22 Loc: [facility] Room: Type: [facility] CLI Attending Dr: Olvin Andino DO Copies to: Olvin Andino DO Ordering Provider: Olvin Andino DO Date of Service: 11/13/22 MR/MR elbow LT wo con: Medial epicondylitis of left elbow;Ulnar neuropathy of left MR elbow LT wo con 11/13/2022 8:03 AM SIGNS AND SYMPTOMS: Medial epicondylitis of left elbow;Ulnar neuropathy of left PROTOCOL: Multiplanar multisequence MR images of the left elbow were obtained without IV contrast COMPARISON: Radiographs 09/17/2022 FINDINGS: Joint fluid: There is a small joint effusion.. Medial: Ulnar collateral ligament: Intact. Common flexor tendon: There is edema in the common flexor tendon at the origin suggesting flexor tendinopathy.. Medial epicondyle: Normal. Lateral: Radial collateral ligament: Intact. Lateral ulnar collateral ligament: Intact. Common extensor tendon: There is mild edema at the origin of the common extensor tendon suggesting tendinopathy.. Lateral epicondyle: Normal. Posterior: Triceps: There is edema at the insertion of the triceps tendons which may be a product of tendinopathy.. Olecranon: There is edema within the olecranon. Anterior: Biceps: Normal. Brachialis: Normal. Bicipitoradial bursa: Normal. Articular: Radio-capitellar joint: There is mild subchondral edema long the capitellum which is presumably osteoarthritic. Subtle edema is also noted in the medial margin of the radial head. Ulno-humeral joint: Normal Proximal radio-ulnar joint: Normal. Bones (other than subarticular marrow): Normal. Muscles: Normal. Vessels: Normal. Nerves: Cubital tunnel normal, retinaculum intact. Anconeus epitrochlearis muscle present. Intra-articular bodies: None. MR/MR elbow LT wo con IMPRESSION: There is a small joint effusion. Edema is noted at the origins of the common flexor and extensor tendons suggesting tendinopathy. There is also edema at the insertion of the triceps tendon suggesting tendinopathy. There is edema within the olecranon. There is mild subchondral edema long the capitellum which is presumably osteoarthritic. Subtle edema is also noted in the medial margin of the radial head. Impression dictated by: Sharmin Deng M.D.11/13/2022 12:34 PM Dictation Location: [place] [id number] Transcribed By: [facility] 11/13/22 1234 Dictated By: Sharmin Deng II, MD 11/13/22 1225 Signed By: 11/13/22 1234 Normal [facility] Tobacco Screening.on 023 Adult depression screening assessment No [facility] [address] DO Work Phone: Tobacco use status [facility] b) No [facility] 250 DO Work Phone: A1C with Estimated Average G luon 10-03-2022 Glucose [Mass/Vol] 123 mg/dL Normal [facility] Comment on above: Order Comment: Reaso n for Exam Impaired glucose tolerance Result Comment: PERF ORMED BY: [place] [address] PATHOLOGIST GAME TRAP[employer] MARJORIE WAYNE M.D. Performed By: #### C BC, CUBLD #### [address] HbA1c (Bld) [Mass fraction] 5.9 % High 4.3-5.6 [facility] Comment on above: Order Comment: Reaso n for Exam Impaired glucose tolerance Result Comment: Incr eased risk for diabetes: 5.7 - 6.4 diabetes: >6.4 glycemic control for adults with diabetes: <7.0 Performed By: #### C BC, CUBLD #### [facility] [address] [place] [address] Absolute reticulocyte countO rdered By: Jose Ray on 10-03-2022 Reticulocytes (Bld) [#/Vol] 0.125 10*6/uL 0.024-0.084 [facility] Alanine aminotransferase [En zymatic activity/volume] in Serum or PlasmaOrdered By: Jose Ray on 10-03-2022 ALT [Catalytic activity/Vol] 20 U/L 7-52 [facility] Albumin [Mass/volume] in Ser um or Plasma by Bromocresol green (BCG) dye binding methoOrdered By: Jose Ray on 10-03-2022 Albumin BCG dye [Mass/Vol] 4.3 g/dL 3.5-5.7 [facility] Alkaline phosphatase [Enzyma tic activity/volume] in Serum or PlasmaOrdered By: Jose Ray on 10-03-2022 ALP [Catalytic activity/Vol] 62 U/L 34-104 [facility] Aspartate aminotransferase [ Enzymatic activity/volume] in Serum or PlasmaOrdered By: Jose Ray on 10-03-2022 AST [Catalytic activity/Vol] 15 U/L 13-39 [facility] Basic Metabolic Panelon Anion gap [Moles/Vol] 11.4 mmol/L Normal 6.0-15.0 [facility] Comment on above: Order Comment: PT FA STED 12 HOURS Reason for Exam Encounter for long-term (current) use of medications Reason for Exam Mixed hyperlipidemia Reason for Exam Renal failure, unspecified chronicity Performed By: #### A BUSHRA 5 #### [facility] , Calcium [Mass/Vol] 9.1 mg/dL Normal 8.6-10.3 [facility] Comment on above: Order Comment: PT FA STED 12 HOURS Reason for Exam Encounter for long-term (current) use of medications Reason for Exam Mixed hyperlipidemia Reason for Exam Renal failure, unspecified chronicity Performed By: #### A BUSHRA 5 #### [facility] , Chloride [Moles/Vol] 100 mmol/L Normal 98-107 [facility] Comment on above: Order Comment: PT FA STED 12 HOURS Reason for Exam Encounter for long-term (current) use of medications Reason for Exam Mixed hyperlipidemia Reason for Exam Renal failure, unspecified chronicity Performed By: #### A LLCHAPON 5 #### [facility] , CO2 [Moles/Vol] 29.9 mmol/L Normal 21.0-31.0 [facility] Comment on above: Order Comment: PT FA STED 12 HOURS Reason for Exam Encounter for long-term (current) use of medications Reason for Exam Mixed hyperlipidemia Reason for Exam Renal failure, unspecified chronicity Performed By: #### A LLERGEN 5 #### [facility] , Creatinine [Mass/Vol] 1.55 mg/dL High 0.70-1.30 [facility] Comment on above: Order Comment: PT FA STED 12 HOURS Reason for Exam Encounter for long-term (current) use of medications Reason for Exam Mixed hyperlipidemia Reason for Exam Renal failure, unspecified chronicity Performed By: #### A BUSHRA 5 #### [facility] , GFR/1.73 sq M.predicted MDRD (S/P/Bld) [Vol rate/Area] 49.983 mL/min/{1.73_m2} Normal [facility] Comment on above: Order Comment: PT FA STED 12 HOURS Reason for Exam Encounter for long-term (current) use of medications Reason for Exam Mixed hyperlipidemia Reason for Exam Renal failure, unspecified chronicity Performed By: #### A BUSHRA 5 #### [facility] , Glucose [Mass/Vol] 91 mg/dL Normal 70-100 [facility] Comment on above: Order Comment: PT FA STED 12 HOURS Reason for Exam Encounter for long-term (current) use of medications Reason for Exam Mixed hyperlipidemia Reason for Exam Renal failure, unspecified chronicity Result Comment: [facility] Glucose Reference Range is dependent on time and content of last meal. Glucose of more than 200 mg/dL in a nonstressed, ambulatory subject supports the diagnosis of Diabetes Mellitus. ADA recommended reference range Performed By: #### A BUSHRA 5 #### [facility] , Potassium [Moles/Vol] 4.3 mmol/L Normal 3.5-5.1 [facility] Comment on above: Order Comment: PT FA STED 12 HOURS Reason for Exam Encounter for long-term (current) use of medications Reason for Exam Mixed hyperlipidemia Reason for Exam Renal failure, unspecified chronicity Performed By: #### A SUNNYN 5 #### [facility] , Sodium [Moles/Vol] 137 mmol/L Normal 136-145 [facility] Comment on above: Order Comment: PT FA STED 12 HOURS Reason for Exam Encounter for long-term (current) use of medications Reason for Exam Mixed hyperlipidemia Reason for Exam Renal failure, unspecified chronicity Performed By: #### A BUSHRA 5 #### [facility] , Urea nitrogen [Mass/Vol] 28 mg/dL High 7-25 [facility] Comment on above: Order Comment: PT FA STED 12 HOURS Reason for Exam Encounter for long-term (current) use of medications Reason for Exam Mixed hyperlipidemia Reason for Exam Renal failure, unspecified chronicity Performed By: #### A BUSHRA 5 #### [facility] , Basophils Auto (Bld) [#/Vol] Ordered By: Jose Ray on 10-03-2022 Basophils (Bld) [#/Vol] 0.0 10*3/uL 0.0-0.2 [facility] Basophils/100 WBC Auto (Bld) Ordered By: Jose Ray on 10-03-2022 Basophils/100 WBC (Bld) 0.9 % . [facility] Bilirubin.direct [Mass/volum e] in Serum or PlasmaOrdered By: Jose Ray on 10-03-2022 Bilirubin.direct [Mass/Vol] 0.10 mg/dL 0.03-0.18 [facility] Bilirubin.total [Mass/volume ] in Serum or PlasmaOrdered By: Jose Ray on 10-03-2022 Bilirubin [Mass/Vol] 0.5 mg/dL 0.3-1.0 [facility] Calcium [Mass/volume] in Ser um or PlasmaOrdered By: Jose Ray on 10-03-2022 Calcium [Mass/Vol] 9.1 mg/dL 8.6-10.3 [facility] Carbon dioxide, total [Moles /volume] in Serum or PlasmaOrdered By: Jose Ray on 10-03-2022 CO2 [Moles/Vol] 29.9 mmol/L 21.0-31.0 [facility] Chloride [Moles/volume] in S irma or PlasmaOrdered By: Jose Ray on 10-03-2022 Chloride [Moles/Vol] 100 mmol/L 98-107 [facility] Cholesterol [Mass/volume] in Serum or PlasmaOrdered By: Jose Ray on 10-03-2022 Cholesterol [Mass/Vol] 127 mg/dL 140-200 [facility] Comment on above: Chol less than 200 m g/dl low riskChol 201-239 mg/dl borderline riskChol 240 mg/dl and greater high risk Cholesterol in LDL Calc [Mas s/Vol]Ordered By: Jose Ray on 10-03-2022 Cholesterol in LDL [Mass/Vol] 62 mg/dL 0-100 [facility] Comment on above: LDL ATP III CLASSIFI CATIONLDL less than 100 mg/dL OptimalLDL 100-129 mg/dL Near or above optimalLDL 130-159 mg/dL Borderline highLDL 160-189 mg/dL HighLDL greater than 189 mg/dL Very high Cholesterol in VLDL Calc [Ma ss/Vol]Ordered By: Jose Ray on 10-03-2022 Cholesterol in VLDL [Mass/Vol] 18 mg/dL [facility] Complete Blood Count Auto Di ffon 10-03-2022 Basophils (Bld) [#/Vol] 0.0 10*3/uL Normal 0.0-0.2 [facility] Comment on above: Order Comment: Reaso n for Exam Encounter for long-term (current) use of medications Reason for Exam Renal failure, unspecified chronicity Performed By: #### R ETIC, CBC #### [facility] [address] [place] [address] [place] Basophils/100 WBC (Bld) 0.9 % Normal . [facility] Comment on above: Order Comment: Reaso n for Exam Encounter for long-term (current) use of medications Reason for Exam Renal failure, unspecified chronicity Performed By: #### R ETIC, CBC #### [facility] [address] [place] [address] [place] Eosinophils (Bld) [#/Vol] 0.2 10*3/uL Normal 0.0-0.45 [facility] Comment on above: Order Comment: Reaso n for Exam Encounter for long-term (current) use of medications Reason for Exam Renal failure, unspecified chronicity Performed By: #### R ETIC, CBC #### [facility] [address] [place] [address] [place] Eosinophils/100 WBC (Bld) 2.8 % Normal . [facility] Comment on above: Order Comment: Reaso n for Exam Encounter for long-term (current) use of medications Reason for Exam Renal failure, unspecified chronicity Performed By: #### R ETIC, CBC #### [address] Erythrocyte distribution width (RBC) [Ratio] 16.2 % High 12.0-14.8 [facility] Comment on above: Order Comment: Reaso n for Exam Encounter for long-term (current) use of medications Reason for Exam Renal failure, unspecified chronicity Performed By: #### R ETIC, CBC #### [address] Hematocrit (Bld) [Volume fraction] 41.4 % Normal 38.8-50.0 [facility] Comment on above: Order Comment: Reaso n for Exam Encounter for long-term (current) use of medications Reason for Exam Renal failure, unspecified chronicity Performed By: #### R ETIC, CBC #### [address] Hemoglobin (Bld) [Mass/Vol] 13.4 g/dL Normal 13.0-17.0 [facility] Comment on above: Order Comment: Reaso n for Exam Encounter for long-term (current) use of medications Reason for Exam Renal failure, unspecified chronicity Performed By: #### R ETIC, CBC #### [address] Lymphocytes (Bld) [#/Vol] 1.2 10*3/uL Normal 1.00-4.8 [facility] Comment on above: Order Comment: Reaso n for Exam Encounter for long-term (current) use of medications Reason for Exam Renal failure, unspecified chronicity Performed By: #### R ETIC, CBC #### [place] [address] [place] Lymphocytes/100 WBC (Bld) 21.4 % Normal . [facility] Comment on above: Order Comment: Reaso n for Exam Encounter for long-term (current) use of medications Reason for Exam Renal failure, unspecified chronicity Performed By: #### R ETIC, CBC #### [facility] [address] MCH (RBC) [Entitic mass] 26.7 pg Low 27.5-35.2 [facility] Comment on above: Order Comment: Reaso n for Exam Encounter for long-term (current) use of medications Reason for Exam Renal failure, unspecified chronicity Performed By: #### R ETIC, CBC #### [facility] [address] [place] [address] MCV (RBC) [Entitic vol] 82.1 fL Low 83.5-101 [facility] Comment on above: Order Comment: Reaso n for Exam Encounter for long-term (current) use of medications Reason for Exam Renal failure, unspecified chronicity Performed By: #### R ETIC, CBC #### [address] Mean Corpuscular HGB Conc 32.5 g/dL Normal 32.5-35.6 [facility] Comment on above: Order Comment: Reaso n for Exam Encounter for long-term (current) use of medications Reason for Exam Renal failure, unspecified chronicity Performed By: #### R ETIC, CBC #### [facility] [address] [place] [address] [place] Monocytes (Bld) [#/Vol] 0.9 10*3/uL High 0.0-0.8 [facility] Comment on above: Order Comment: Reaso n for Exam Encounter for long-term (current) use of medications Reason for Exam Renal failure, unspecified chronicity Performed By: #### R ETIC, CBC #### [facility] [address] [place] [address] [place] Monocytes/100 WBC (Bld) 15.4 % Normal . [facility] Comment on above: Order Comment: Reaso n for Exam Encounter for long-term (current) use of medications Reason for Exam Renal failure, unspecified chronicity Performed By: #### R ETIC, CBC #### [facility] [address] [place] [address] [place] Neutrophils (Bld) [#/Vol] 3.4 10*3/uL Normal 1.8-7.7 [facility] Comment on above: Order Comment: Reaso n for Exam Encounter for long-term (current) use of medications Reason for Exam Renal failure, unspecified chronicity Performed By: #### R ETIC, CBC #### [facility] [address] Neutrophils/100 WBC (Bld) 59.5 % Normal . [facility] Comment on above: Order Comment: Reaso n for Exam Encounter for long-term (current) use of medications Reason for Exam Renal failure, unspecified chronicity Performed By: #### R ETIC, CBC #### [facility] [address] NRBC% 0.1 /100{WBC} Normal 0-0.5 [facility] Comment on above: Order Comment: Reaso n for Exam Encounter for long-term (current) use of medications Reason for Exam Renal failure, unspecified chronicity Performed By: #### R ETIC, CBC #### [facility] [address] Platelet mean volume (Bld) [Entitic vol] 9.3 fL Normal 6.6-10.1 [facility] Comment on above: Order Comment: Reaso n for Exam Encounter for long-term (current) use of medications Reason for Exam Renal failure, unspecified chronicity Performed By: #### R ETIC, CBC #### [facility] [address] Platelets (Bld) [#/Vol] 196 10*3/uL Normal 150-450 [facility] Comment on above: Order Comment: Reaso n for Exam Encounter for long-term (current) use of medications Reason for Exam Renal failure, unspecified chronicity Performed By: #### R ETIC, CBC #### [facility] [address] [place] [address] [place] RBC (Bld) [#/Vol] 5.04 10*6/uL Normal 3.90-5.60 [facility] Comment on above: Order Comment: Reaso n for Exam Encounter for long-term (current) use of medications Reason for Exam Renal failure, unspecified chronicity Performed By: #### R ETIC, CBC #### [facility] [address] [place] [address] [place] WBC (Bld) [#/Vol] 5.7 10*3/uL Normal 4.1-10.5 [facility] Comment on above: Order Comment: Reaso n for Exam Encounter for long-term (current) use of medications Reason for Exam Renal failure, unspecified chronicity Performed By: #### R ETIC, CBC #### [facility] [address] Creatinine [Mass/volume] in Serum or PlasmaOrdered By: Jose Ray on 10-03-2022 Creatinine [Mass/Vol] 1.55 mg/dL 0.70-1.30 [facility] Eosinophils Auto (Bld) [#/Vo l]Ordered By: Jose Ray on 10-03-2022 Eosinophils (Bld) [#/Vol] 0.2 10*3/uL 0.0-0.45 [facility] Eosinophils/100 WBC Auto (Bl d)Ordered By: Jose Ray on 10-03-2022 Eosinophils/100 WBC (Bld) 2.8 % . [facility] Erythrocyte distribution wid th Auto (RBC) [Ratio]Ordered By: Jose Ray on 10-03-2022 Erythrocyte distribution width (RBC) [Ratio] 16.2 % 12.0-14.8 [facility] Ferritinon 10-03-2022 Ferritin [Mass/Vol] 13.3 ng/mL Low 23.9-336.2 [facility] Comment on above: Order Comment: Reaso n for Exam Renal failure, unspecified chronicity Performed By: #### C BC, CUBLD #### [facility] [address] [place] [id number] [place] Ferritin [Mass/volume] in Se rum or PlasmaOrdered By: Jose Ray on 10-03-2022 Ferritin [Mass/Vol] 13.3 ng/mL 23.9-336.2 [facility] Folateon 10-03-2022 Folate 41.0 ng/mL Normal >5.9 [facility] Comment on above: Order Comment: Reaso n for Exam Renal failure, unspecified chronicity Result Comment: [facility] reference range: >5.9 ng/ml The WHO technical consultation on folate and vitamin b12 deficiencies has determined that folate concentrations less than 4 ng/ml are considered deficient. PERFORMED BY: [place] [address] PATHOLOGIST G[employer] MARJORIE WAYNE M.D. Performed By: #### C BC, CUBLD #### [address] Folate [Mass/volume] in Seru m or PlasmaOrdered By: Jose Ray on 10-03-2022 Folate [Mass/Vol] 41.0 ng/mL >5.9 [facility] Comment on above: Folate reference ran ge: >5.9 ng/mlThe WHO technical consultation on folate and vitamin [id number] has determined that folate concentrations lessthan 4 ng/ml are considered deficient. Globulin Calc (S) [Mass/Vol] Ordered By: Jose Ray on 10-03-2022 Globulin (S) [Mass/Vol] 2.4 g/dL [facility] Glucose [Mass/volume] in Ser um or PlasmaOrdered By: Jose Ray on 10-03-2022 Glucose [Mass/Vol] 91 mg/dL 70-100 [facility] Comment on above: ADA recommended refe rence rangeRandom Glucose Reference Range is dependent on time and content of last meal. Glucose of more than 200 mg/dL in a nonstressed, ambulatory subject supports the diagnosis of Diabetes Mellitus. Glucose mean value [Mass/vol ume] in Blood Estimated from glycated hemoglobinOrdered By: Jose Ray on 10-03-2022 Average glucose Estimated from glycated hemoglobin (Bld) [Mass/Vol] 123 mg/dL [facility] Hematocrit Auto (Bld) [Volum e fraction]Ordered By: Jose Ray on 10-03-2022 Hematocrit (Bld) [Volume fraction] 41.4 % 38.8-50.0 [facility] Hemoglobin A1c percentageOrd ered By: Jose Ray on 10-03-2022 HbA1c (Bld) [Mass fraction] 5.9 % 4.3-5.6 [facility] Comment on above: Increased risk for d iabetes: 5.7 - 6.4diabetes: >6.4glycemic control for adults with diabetes: <7.0 Hemoglobin [Mass/volume] in BloodOrdered By: Jose Ray on 10-03-2022 Hemoglobin (Bld) [Mass/Vol] 13.4 g/dL 13.0-17.0 [facility] Hepatic Panelon 10-03-2022 Albumin [Mass/Vol] 4.3 g/dL Normal 3.5-5.7 [facility] Comment on above: Order Comment: PT FA STED 12 HOURS Reason for Exam Encounter for long-term (current) use of medications Reason for Exam Mixed hyperlipidemia Reason for Exam Renal failure, unspecified chronicity Performed By: #### A BUSHRA 5 #### [facility] , Albumin/Globulin [Mass ratio] 1.8 {ratio} Normal [facility] Comment on above: Order Comment: PT FA STED 12 HOURS Reason for Exam Encounter for long-term (current) use of medications Reason for Exam Mixed hyperlipidemia Reason for Exam Renal failure, unspecified chronicity Performed By: #### A BUSHRA 5 #### [facility] , ALP [Catalytic activity/Vol] 62 U/L Normal 34-104 [facility] Comment on above: Order Comment: PT FA STED 12 HOURS Reason for Exam Encounter for long-term (current) use of medications Reason for Exam Mixed hyperlipidemia Reason for Exam Renal failure, unspecified chronicity Performed By: #### A LLCHAPON 5 #### [facility] , ALT [Catalytic activity/Vol] 20 U/L Normal 7-52 [facility] Comment on above: Order Comment: PT FA STED 12 HOURS Reason for Exam Encounter for long-term (current) use of medications Reason for Exam Mixed hyperlipidemia Reason for Exam Renal failure, unspecified chronicity Performed By: #### A LLCHAPON 5 #### [facility] , AST [Catalytic activity/Vol] 15 U/L Normal 13-39 [facility] Comment on above: Order Comment: PT FA STED 12 HOURS Reason for Exam Encounter for long-term (current) use of medications Reason for Exam Mixed hyperlipidemia Reason for Exam Renal failure, unspecified chronicity Performed By: #### A LLCHAPON 5 #### [facility] , Bilirubin [Mass/Vol] 0.5 mg/dL Normal 0.3-1.0 [facility] Comment on above: Order Comment: PT FA STED 12 HOURS Reason for Exam Encounter for long-term (current) use of medications Reason for Exam Mixed hyperlipidemia Reason for Exam Renal failure, unspecified chronicity Performed By: #### A LLCHAPON 5 #### [facility] , Bilirubin,Indirect 0.4 mg/dL Normal [facility] Comment on above: Order Comment: PT FA STED 12 HOURS Reason for Exam Encounter for long-term (current) use of medications Reason for Exam Mixed hyperlipidemia Reason for Exam Renal failure, unspecified chronicity Performed By: #### A LLCHAPON 5 #### [facility] , Bilirubin.indirect [Mass/Vol] 0.10 mg/dL Normal 0.03-0.18 [facility] Comment on above: Order Comment: PT FA STED 12 HOURS Reason for Exam Encounter for long-term (current) use of medications Reason for Exam Mixed hyperlipidemia Reason for Exam Renal failure, unspecified chronicity Performed By: #### A LLCHAPON 5 #### [facility] , Globulin (S) [Mass/Vol] 2.4 g/dL Normal [facility] Comment on above: Order Comment: PT FA STED 12 HOURS Reason for Exam Encounter for long-term (current) use of medications Reason for Exam Mixed hyperlipidemia Reason for Exam Renal failure, unspecified chronicity Performed By: #### A LLERGEN 5 #### [facility] , Protein [Mass/Vol] 6.7 g/dL Normal 6.4-8.9 [facility] Comment on above: Order Comment: PT FA STED 12 HOURS Reason for Exam Encounter for long-term (current) use of medications Reason for Exam Mixed hyperlipidemia Reason for Exam Renal failure, unspecified chronicity Performed By: #### A LLERGEN 5 #### [facility] , Ironon 10-03-2022 Iron [Mass/Vol] 55 ug/dL Normal 50-212 [facility] Comment on above: Order Comment: Reaso n for Exam Renal failure, unspecified chronicity Performed By: #### C BC, KARENLD #### [facility] [address] Iron [Mass/volume] in Serum or PlasmaOrdered By: Jose Ray on 10-03-2022 Iron [Mass/Vol] 55 ug/dL 50-212 [facility] Leukocytes [#/volume] correc herbert for nucleated erythrocytes in Blood by Automated counOrdered By: Jose Ray on 10-03-2022 WBC corrected for nucl RBC Auto (Bld) [#/Vol] 5.7 10*3/uL 4.1-10.5 [facility] Lipid Panelon 10-03-2022 Cholesterol [Mass/Vol] 127 mg/dL Low 140-200 [facility] Comment on above: Order Comment: PT FA STED 12 HOURS Reason for Exam Encounter for long-term (current) use of medications Reason for Exam Mixed hyperlipidemia Reason for Exam Renal failure, unspecified chronicity Result Comment: Chol less than 200 mg/dl low risk Chol 201-239 mg/dl borderline risk Chol 240 mg/dl and greater high risk Performed By: #### A BUSHRA 5 #### [facility] , Cholesterol in HDL [Mass/Vol] 46 mg/dL Normal 29-71 [facility] Comment on above: Order Comment: PT FA STED 12 HOURS Reason for Exam Encounter for long-term (current) use of medications Reason for Exam Mixed hyperlipidemia Reason for Exam Renal failure, unspecified chronicity Result Comment: HDL CHOL ATP-III CLASSIFICATION Cardiovascular Risk HDL > or equal to 60 mg/dL LOW HDL < 40 mg/dL HIGH Performed By: #### A LLCHAPON 5 #### [facility] , Cholesterol.total/Chol esterol in HDL [Mass ratio] 2.8 {ratio} Normal <5.0 [facility] Comment on above: Order Comment: PT FA STED 12 HOURS Reason for Exam Encounter for long-term (current) use of medications Reason for Exam Mixed hyperlipidemia Reason for Exam Renal failure, unspecified chronicity Performed By: #### A BUSHRA 5 #### [facility] , LDL Cholesterol,Calculated 62 mg/dL Normal 0-100 [facility] Comment on above: Order Comment: PT FA STED 12 HOURS Reason for Exam Encounter for long-term (current) use of medications Reason for Exam Mixed hyperlipidemia Reason for Exam Renal failure, unspecified chronicity Result Comment: LDL ATP III CLASSIFICATION LDL less than 100 mg/dL Optimal LDL 100-129 mg/dL Near or above optimal LDL 130-159 mg/dL Borderline high LDL 160-189 mg/dL High LDL greater than 189 mg/dL Very high Performed By: #### A BUSHRA 5 #### [facility] , Triglyceride w/Reflex 93 mg/dL Normal 0-149 [facility] Comment on above: Order Comment: PT FA STED 12 HOURS Reason for Exam Encounter for long-term (current) use of medications Reason for Exam Mixed hyperlipidemia Reason for Exam Renal failure, unspecified chronicity Result Comment: TRIG ATP III CLASSIFICATION TRIG less than 150 mg/dL Normal TRIG 150-199 mg/dL Borderline high TRIG 200-500 mg/dL High TRIG greater than 500 mg/dL Very high Standard traceable to the Center for Disease Conrtrol and Prevention (CDC) test method. Performed By: #### A BUSHRA 5 #### [facility] , VLDL CHOLESTEROL 18 mg/dL Normal [facility] Comment on above: Order Comment: PT FA STED 12 HOURS Reason for Exam Encounter for long-term (current) use of medications Reason for Exam Mixed hyperlipidemia Reason for Exam Renal failure, unspecified chronicity Performed By: #### A BUSHRA 5 #### [facility] , Lymphocytes Auto (Bld) [#/Vo l]Ordered By: Jose Ray on 10-03-2022 Lymphocytes (Bld) [#/Vol] 1.2 10*3/uL 1.00-4.8 [facility] Lymphocytes/100 WBC Auto (Bl d)Ordered By: Jose Ray on 10-03-2022 Lymphocytes/100 WBC (Bld) 21.4 % . [facility] MCH Auto (RBC) [Entitic mass ]Ordered By: Jose Ray on 10-03-2022 MCH (RBC) [Entitic mass] 26.7 pg 27.5-35.2 [facility] MCHC Auto (RBC) [Mass/Vol]Or dered By: Jose Ray on 10-03-2022 MCHC (RBC) [Mass/Vol] 32.5 g/dL 32.5-35.6 [facility] MCV Auto (RBC) [Entitic vol] Ordered By: Jose Ray on 10-03-2022 MCV (RBC) [Entitic vol] 82.1 fL 83.5-101 [facility] Monocytes Auto (Bld) [#/Vol] Ordered By: Jose Ray on 10-03-2022 Monocytes (Bld) [#/Vol] 0.9 10*3/uL 0.0-0.8 [facility] Monocytes/100 WBC Auto (Bld) Ordered By: Jose Ray on 10-03-2022 Monocytes/100 WBC (Bld) 15.4 % . [facility] Neutrophils Auto (Bld) [#/Vo l]Ordered By: Jose Ray on 10-03-2022 Neutrophils (Bld) [#/Vol] 3.4 10*3/uL 1.8-7.7 [facility] Neutrophils/100 WBC Auto (Bl d)Ordered By: Jose Ray on 10-03-2022 Neutrophils/100 WBC (Bld) 59.5 % . [facility] No Panel InformationOrdered By: Jose Ray on 10-03-2022 Estimated GFR (CKD-EPI) 49.983 mL/Min [facility] Creatinine Clearance (Chem N/A [facility] Nucleated erythrocytes [Pres ence] in Blood by Automated countOrdered By: Jose Ray on 10-03-2022 Nucleated RBC Auto Ql (Bld) 0.1 /100{WBC} 0-0.5 [facility] Platelet mean volume Auto (B ld) [Entitic vol]Ordered By: Jose Ray on 10-03-2022 Platelet mean volume (Bld) [Entitic vol] 9.3 fL 6.6-10.1 [facility] Platelets Auto (Bld) [#/Vol] Ordered By: Jose Ray on 10-03-2022 Platelets (Bld) [#/Vol] 196 10*3/uL 150-450 [facility] Potassium [Moles/volume] in Serum or PlasmaOrdered By: Jose Oberer on 10-03-2022 Potassium [Moles/Vol] 4.3 mmol/L 3.5-5.1 [facility] Protein [Mass/volume] in Ser um or PlasmaOrdered By: Jose Oberer on 10-03-2022 Protein [Mass/Vol] 6.7 g/dL 6.4-8.9 [facility] RBC Auto (Bld) [#/Vol]Ordere d By: Jose Obgustabor on 10-03-2022 RBC (Bld) [#/Vol] 5.04 10*6/uL 3.90-5.60 [facility] Reticulocyte Counton 023 Reticulocyte Number 0.125 10*6/uL High 0.024-0.084 F [facility] Comment on above: Order Comment: Reaso n for Exam Encounter for long-term (current) use of medications Reason for Exam Renal failure, unspecified chronicity Result Comment: PERF ORMED BY: [place] [address] PATHOLOGIST GAME TRAPPER MARJORIE WAYNE M.D. Performed By: #### R ETIC, CBC #### [facility] [address] [place] [address] [place] Reticulocyte Percent 2.5 % High 0.5-1.5 [facility] Comment on above: Order Comment: Reaso n for Exam Encounter for long-term (current) use of medications Reason for Exam Renal failure, unspecified chronicity Performed By: #### R ETIC, CBC #### [facility] [address] [place] [id number] [place] Reticulocytes/100 RBC Auto ( Bld)Ordered By: Jose Ray on 10-03-2022 Reticulocytes/100 RBC (Bld) 2.5 % 0.5-1.5 [facility] Serum or plasma albumin/glob ulin mass ratioOrdered By: Jose Ray on 10-03-2022 Albumin/Globulin [Mass ratio] 1.8 {ratio} [facility] Serum or plasma anion gap de terminationOrdered By: Jose Ray on 10-03-2022 Anion gap [Moles/Vol] 11.4 mmol/L 6.0-15.0 [facility] Serum or plasma high density lipoprotein (HDL) cholesterol measurementOrdered By: Jose Ray on 10-03-2022 Cholesterol in HDL [Mass/Vol] 46 mg/dL 29-71 [facility] Comment on above: HDL CHOL ATP-III CLA SSIFICATION Cardiovascular RiskHDL > or equal to 60 mg/dL LOWHDL < 40 mg/dL HIGH Serum or plasma non-glucuron idated bilirubin measurement (mass/volume)Ordered By: Jose Ray on 10-03-2022 Bilirubin.indirect [Mass/Vol] 0.4 mg/dL [facility] Serum or plasma total choles terol/high density lipoprotein (HDL) cholesterol mass ratOrdered By: Jose Ray on 10-03-2022 Cholesterol.total/Chol esterol in HDL [Mass ratio] 2.8 {ratio} <5.0 [facility] Sodium [Moles/volume] in Ser um or PlasmaOrdered By: Jose Ray on 10-03-2022 Sodium [Moles/Vol] 137 mmol/L 136-145 [facility] Triglyceride [Mass/volume] i n Serum or PlasmaOrdered By: Jose Ray on 10-03-2022 Triglyceride [Mass/Vol] 93 mg/dL 0-149 [facility] Comment on above: TRIG ATP III CLASSIF ICATIONTRIG less than 150 mg/dL NormalTRIG 150-199 mg/dL Borderline highTRIG 200-500 mg/dL High TRIG greater than 500 mg/dL Very highStandard traceable to the Center for Disease Conrtrol and Prevention (CDC) test method. Urea nitrogen [Mass/volume] in Serum or PlasmaOrdered By: Jose Ray on 10-03-2022 Urea nitrogen [Mass/Vol] 28 mg/dL 725 [facility] Vitamin B12on 10-03-2022 Cobalamin (Vitamin B12) [Mass/Vol] 340 pg/mL Normal 180-914 [facility] Comment on above: Order Comment: PT FA STED 12 HOURS Reason for Exam Encounter for long-term (current) use of medications Reason for Exam Mixed hyperlipidemia Reason for Exam Renal failure, unspecified chronicity Result Comment: PERF ORMED BY: [place] [address] PATHOLOGIST GAME TRAPPER MARJORIE WAYNE M.D. Performed By: #### A LLERGEN 5 #### [facility] , Vitamin B12 ser/plasOrdered By: Jose Ray on 10-03-2022 Cobalamin (Vitamin B12) [Mass/Vol] 340 pg/mL 180-914 [facility] WBC Auto (Bld) [#/Vol]Ordere d By: Jose Ray on 10-03-2022 WBC (Bld) [#/Vol] 5.7 10*3/uL 4.1-10.5 [facility] XR elbow LT min 3V*on 2022 XR elbow LT min 3V* [facility] Main [place] [address] [place], [place] [id number] XRay Report Signed Patient: Mary Jimenez MR#: [id number] : 1960 Acct:[id number] Age/Sex: 62 / M ADM Date: 09/17/22 Loc: XD Room: Type: [facility] Attending Dr: Jose Ray DO Copies to: Jose Ray DO Ordering Provider: Jose Ray DO Date of Service: 09/17/22 XR/XR elbow LT min 3V*: Pain in left elbow 4 views of the leftelbow plain film COMPARISON:None HISTORY:Left elbow pain for 2 weeks ACUTE FINDINGS:None DEGENERATIVE CHANGE:Unremarkable SOFT TISSUE FINDINGS:Diffuse soft tissue length. Olecranon soft tissue swelling. JOINT EFFUSION:None POSTOP CHANGES:None BONE MINERALIZATION:Adequate XR/XR elbow LT min 3V* IMPRESSION: Diffuse and olecranon soft tissue swelling. Impression dictated by: Eagle Prince M.D.09/17/2022 1:24 PM Dictation Location: [place] [address] Transcribed By: [facility] 09/17/22 1324 Dictated By: Eagle Prince DO 09/17/22 1323 Signed By: 09/17/22 1324 Normal [facility] XR elbow LT min 3V* [facility] [employer] Other XR elbow LT min 3V* [facility] [employer] Other XR elbow LT min 3V* [address] [place] [address] [employer] Other XR elbow LT min 3V* [place] [address] [employer] Other XR elbow LT min 3V* XRay Report [employer] Other XR elbow LT min 3V* Signed [facility] Other XR elbow LT min 3V* Patient: Mary Jimenez MR#: [id number] [place] [employer] Other XR elbow LT min 3V* : 1960 Acct:[id number] [employer] Other XR elbow LT min 3V* Age/Sex: 62 / M ADM Date: 09/17/22 [employer] Other XR elbow LT min 3V* Loc: XD Room: Type: [facility] [employer] Other XR elbow LT min 3V* Attending Dr: Jose Ray DO [employer] Other XR elbow LT min 3V* Copies to: Jose Ray DO [employer] Other XR elbow LT min 3V* Ordering Provider: Bakari Ray DO [employer] Other XR elbow LT min 3V* Date of Service: 09/17/22 [employer] Other XR elbow LT min 3V* XR/XR elbow LT min 3V*: Pain in left elbow [employer] Other XR elbow LT min 3V* 4 views of the lefte lbow plain film [employer] Other XR elbow LT min 3V* COMPARISON:None [employer] Other XR elbow LT min 3V* HISTORY:Left elbow p ain for 2 weeks [employer] Other XR elbow LT min 3V* ACUTE FINDINGS:None [employer] Other XR elbow LT min 3V* DEGENERATIVE CHANGE:Unremarkable [employer] Other XR elbow LT min 3V* SOFT TISSUE FINDINGS:Diffuse soft tissue length. Olecranon soft tissue swelling. [employer] Other XR elbow LT min 3V* JOINT EFFUSION:None [employer] Other XR elbow LT min 3V* POSTOP CHANGES:None [facility] Other XR elbow LT min 3V* BONE MINERALIZATION:Adequate [employer] Other XR elbow LT min 3V* X R/XR elbow LT min 3V* [employer] Other XR elbow LT min 3V* IMPRESSION: Diffuse and olecranon soft tissue swelling. [facility] Other XR elbow LT min 3V* Impression dictated by: aEgle Prince M.D.09/17/2022 1:24 PM [employer] Other XR elbow LT min 3V* Dictation Location: [place] [address] [employer] Other XR elbow LT min 3V* Transcribed By: ISIDRO 09/17/22 1324 [employer] Other XR elbow LT min 3V* Dictated By: Eagle Prince DO 09/17/22 1323 Located [facility] [employer] Other XR elbow LT min 3V* Signed By: Located [facility] [employer] Other XR elbow LT min 3V* 09/17/22 1324 No rth [facility] [employer] Other XR cervical spine LAT/FLX/EX Ton 09-11-2022 XR cervical spine LAT/FLX/EXT [facility] Main [place] [id number] XRay Report Signed Patient: Mary Jimenez MR#: [id number] : 1960 Acct:[id number] Age/Sex: 62 / M ADM Date: 09/11/22 Loc: [facility] Room: Type: [facility] Attending Dr: Jose Ray DO Copies to: Jose Ray DO Ordering Provider: Jose Ray DO Date of Service: 09/11/22 XR/XR cervical spine LAT/FLX/EXT: Neck pain;Tingling of left upper extremity CERVICAL SPINE 4 views: CLINICAL HISTORY: Left-sided neck pain COMPARISON: Cervical spine series 06/01/2019 FINDINGS: Vertebral body and disc space heights appear maintained. No pathological motion is seen on flexion or extension views. Mild facet joint degenerative changes. No prevertebral soft tissue swelling. XR/XR cervical spine LAT/FLX/EXT IMPRESSION: FACET JOINT DEGENERATIVE CHANGES WITHOUT ACUTE BONY PROCESS OR SIGNIFICANT DISC HEIGHT LOSS. Impression dictated by: Guru Kemp Jr., D.OAisha09/11/2022 2:45 PM Dictation Location: [place] [address] Transcribed By: [facility] 09/11/22 1445 Dictated By: Guru Kemp Jr, DO 09/11/22 1444 Signed By: 09/11/22 1445 Normal [facility] US venous duplex UE LTon US venous duplex UE LT [facility] Main [address] [address] Ultrasound Report Signed Patient: Mary Jimenez MR#: [id number] : 1960 Acct:[id number] Age/Sex: 62 / M ADM Date: 09/03/22 Loc: ER Room: Type: [facility] ER Attending Dr: Ordering Provider: Alejandro Loo DO Date of Service: 09/03/22 US/US venous duplex UE LT: swelling red, eval dvt Copies to: Alejandro Loo DO VENOUS DUPLEX LEFT UPPER EXTREMITY INDICATION: Left arm pain and swelling for 3 days PROCEDURE: Color-flow duplex scanning is used to interrogate the deep venous system of the Left upper extremity. Compression, Color flow and Augmentation were all normal for the deep and superficial veins of the left arm. In the contralateral limb, the subclavian vein appears with color flow and augmentation. No thrombus was identified. US/US venous duplex UE LT IMPRESSION: NO EVIDENCE OF DVT OR SVT IN THE LEFT ARM. Impression dictated by: Kamron Santos MD09/04/2022 12:14 PM Dictation Location: [place] [address] Tech: Anika Hernandez Transcribed By: ISIDRO 09/04/22 1214 Dictated By: Kamron Santos MD 09/04/22 1213 Signed By: 09/04/22 1214 Normal [facility] Activated partial thrombopla stin time (aPTT) in platelet poor plasma by coagulation aOrdered By: Alejandro Loo on 09-03-2022 aPTT Coag (PPP) [Time] 40.4 s 25.1-36.5 [facility] Alanine aminotransferase [En zymatic activity/volume] in Serum or PlasmaOrdered By: Alejandro Loo on 09-03-2022 ALT [Catalytic activity/Vol] 16 U/L 7-52 [facility] Albumin [Mass/volume] in Ser um or Plasma by Bromocresol green (BCG) dye binding methoOrdered By: Alejandro Loo on 09-03-2022 Albumin BCG dye [Mass/Vol] 4.2 g/dL 3.5-5.7 [facility] Alkaline phosphatase [Enzyma tic activity/volume] in Serum or PlasmaOrdered By: Alejandro Loo on 09-03-2022 ALP [Catalytic activity/Vol] 61 U/L 34-104 [facility] Aspartate aminotransferase [ Enzymatic activity/volume] in Serum or PlasmaOrdered By: Alejandro Loo on 09-03-2022 AST [Catalytic activity/Vol] 13 U/L 13-39 [facility] Bacterial blood cultureOrder ed By: Alejandro Loo on 09-03-2022 Bacteria identified Cx Nom (Bld) NO GROWTH 5 DAYS [facility] Basophils Auto (Bld) [#/Vol] Ordered By: Alejandro Loo on 09-03-2022 Basophils (Bld) [#/Vol] 0.0 10*3/uL 0.0-0.2 [facility] Basophils/100 WBC Auto (Bld) Ordered By: Alejandro Loo on 09-03-2022 Basophils/100 WBC (Bld) 0.7 % . [facility] Bilirubin Test strip Ql (U)O rdered By: Alejandro Loo on 09-03-2022 Bilirubin Ql (U) Negative Negative [facility] Bilirubin.total [Mass/volume ] in Serum or PlasmaOrdered By: Alejandro Loo on 09-03-2022 Bilirubin [Mass/Vol] 0.4 mg/dL 0.3-1.0 [facility] Blood Cultureon 09-03-2022 Bacteria identified Cx Nom (Bld) NO GROWTH 5 DAYS PERFORMED BY: [place] [address] PATHOLOGIST GAME TRAPPER MARJORIE WAYNE M.D. [facility] Comment on above: Performed By: #### C BARBY, CUBLD #### [facility] [address] [place] [address] Bacteria identified Cx Nom (Bld) NO GROWTH 5 DAYS PERFORMED BY: [facility] [address] [place] [address] PATHOLOGIST GAME TRAPPER MARJORIE WAYNE M.D. [facility] Comment on above: Performed By: #### C BC, CUBLD #### [facility] [address] Calcium [Mass/volume] in Ser um or PlasmaOrdered By: Alejandro Loo on 09-03-2022 Calcium [Mass/Vol] 9.0 mg/dL 8.6-10.3 [facility] Carbon dioxide, total [Moles /volume] in Serum or PlasmaOrdered By: Alejandro Loo on 09-03-2022 CO2 [Moles/Vol] 29.9 mmol/L 21.0-31.0 [facility] Chloride [Moles/volume] in S irma or PlasmaOrdered By: Alejandro Loo on 09-03-2022 Chloride [Moles/Vol] 100 mmol/L 98-107 [facility] Color Auto (U)Ordered By: Antonino Loo on 09-03-2022 Color (U) Yellow Yellow [facility] Complete Blood Count Auto Di ffon 09-03-2022 Basophils (Bld) [#/Vol] 0.0 10*3/uL Normal 0.0-0.2 [facility] Comment on above: Result Comment: PERF ORMED BY: [place] [address] PATHOLOGIST GAME TRAPPER MARJORIE WAYNE M.D. Performed By: #### C KAREN DIORLD #### [address] Basophils/100 WBC (Bld) 0.7 % Normal . [facility] Comment on above: Performed By: #### C KAREN DIORLD #### [address] Eosinophils (Bld) [#/Vol] 0.2 10*3/uL Normal 0.0-0.45 [facility] Comment on above: Performed By: #### C KAREN DIORLD #### [address] Eosinophils/100 WBC (Bld) 3.2 % Normal . [facility] Comment on above: Performed By: #### C KAREN DIORLD #### [address] Erythrocyte distribution width (RBC) [Ratio] 16.6 % High 12.0-14.8 [facility] Comment on above: Performed By: #### C JAVIER DIOR #### [address] Hematocrit (Bld) [Volume fraction] 37.0 % Low 38.8-50.0 [facility] Comment on above: Performed By: #### C JAVIER DIOR #### [address] Hemoglobin (Bld) [Mass/Vol] 12.2 g/dL Low 13.0-17.0 [facility] Comment on above: Performed By: #### C KAREN DIORLD #### [address] Lymphocytes (Bld) [#/Vol] 0.8 10*3/uL Low 1.00-4.8 [facility] Comment on above: Performed By: #### C JAVIER DIOR #### [address] Lymphocytes/100 WBC (Bld) 11.3 % Normal . [facility] Comment on above: Performed By: #### C KAREN DIORLD #### [address] MCH (RBC) [Entitic mass] 26.9 pg Low 27.5-35.2 [facility] Comment on above: Performed By: #### C JAVIER DIOR #### [address] MCV (RBC) [Entitic vol] 82.0 fL Low 83.5-101 [facility] Comment on above: Performed By: #### C KAREN DIORLD #### [address] Mean Corpuscular HGB Conc 32.9 g/dL Normal 32.5-35.6 [facility] Comment on above: Performed By: #### C JAVIER DIOR #### [address] Monocytes (Bld) [#/Vol] 0.9 10*3/uL High 0.0-0.8 [facility] Comment on above: Performed By: #### C KAREN DIORLD #### [place] [address] [place] Monocytes/100 WBC (Bld) 17.05 % Normal 0.00-20.00 [facility] Comment on above: Performed By: #### C JAVIER DIOR #### [facility] [address] Monocytes/100 WBC (Bld) 12.9 % Normal . [facility] Comment on above: Performed By: #### C BARBY CUBLD #### [facility] [address] Neutrophils (Bld) [#/Vol] 4.8 10*3/uL Normal 1.8-7.7 [facility] Comment on above: Performed By: #### C JAVIER DIOR #### [address] Neutrophils/100 WBC (Bld) 71.9 % Normal . [facility] Comment on above: Performed By: #### C BARBY CUBLD #### [facility] [address] NRBC% 0.1 /100{WBC} Normal 0-0.5 [facility] Comment on above: Performed By: #### C JAVIER DIOR #### [address] Platelet mean volume (Bld) [Entitic vol] 9.2 fL Normal 6.6-10.1 [facility] Comment on above: Performed By: #### C BARBY CUBLD #### [facility] [address] Platelets (Bld) [#/Vol] 191 10*3/uL Normal 150-450 [facility] Comment on above: Performed By: #### C JAVIER DIOR #### [facility] [address] RBC (Bld) [#/Vol] 4.51 10*6/uL Normal 3.90-5.60 [facility] Comment on above: Performed By: #### C BARBY CUBLD #### [facility] [address] WBC (Bld) [#/Vol] 6.7 10*3/uL Normal 4.1-10.5 [facility] Comment on above: Performed By: #### C BARBY CUBLD #### [facility] [address] [place] [id number] [facility] Comprehensive Metabolic Pane jorge 09-03-2022 Albumin [Mass/Vol] 4.2 g/dL Normal 3.5-5.7 [facility] Comment on above: Performed By: #### A LLCHAPON 5 #### [facility] , Albumin/Globulin [Mass ratio] 1.7 {ratio} Normal [facility] Comment on above: Performed By: #### A LLCHAPON 5 #### [facility] , ALP [Catalytic activity/Vol] 61 U/L Normal 34-104 [facility] Comment on above: Performed By: #### A SUNNYN 5 #### [facility] , ALT [Catalytic activity/Vol] 16 U/L Normal 7-52 [facility] Comment on above: Performed By: #### A LLCHAPON 5 #### [facility] , Anion gap [Moles/Vol] 10.3 mmol/L Normal 6.0-15.0 [facility] Comment on above: Performed By: #### A LLCHAPON 5 #### [facility] , AST [Catalytic activity/Vol] 13 U/L Normal 13-39 [facility] Comment on above: Performed By: #### A LLERGEN 5 #### [facility] , Bilirubin [Mass/Vol] 0.4 mg/dL Normal 0.3-1.0 [facility] Comment on above: Performed By: #### A LLCHAPON 5 #### [facility] , Calcium [Mass/Vol] 9.0 mg/dL Normal 8.6-10.3 [facility] Comment on above: Performed By: #### A LLCHAPON 5 #### [facility] , Chloride [Moles/Vol] 100 mmol/L Normal 98-107 [facility] Comment on above: Performed By: #### A BUSHRA 5 #### [facility] , CO2 [Moles/Vol] 29.9 mmol/L Normal 21.0-31.0 [facility] Comment on above: Performed By: #### A BUSHRA 5 #### [facility] , Creatinine [Mass/Vol] 1.42 mg/dL High 0.70-1.30 [facility] Comment on above: Performed By: #### A BUSHRA 5 #### [facility] , Creatinine Clr Calc Pharmacy 72.62 [facility] Comment on above: Performed By: #### A BUSHRA 5 #### [facility] , GFR/1.73 sq M.predicted MDRD (S/P/Bld) [Vol rate/Area] 55.523 mL/min/{1.73_m2} [facility] Comment on above: Performed By: #### A BUSHRA 5 #### [facility] , Globulin (S) [Mass/Vol] 2.5 g/dL [facility] Comment on above: Performed By: #### A BUSHRA 5 #### [facility] , Glucose [Mass/Vol] 127 mg/dL High 74-109 [facility] Comment on above: Result Comment: [place] Glucose Reference Range is dependent on time and content of last meal. Glucose of more than 200 mg/dL in a nonstressed, ambulatory subject supports the diagnosis of Diabetes Mellitus. ADA recommended reference range Performed By: #### A BUSHRA 5 #### [facility] , Potassium [Moles/Vol] 4.2 mmol/L Normal 3.5-5.1 [facility] Comment on above: Performed By: #### A BUSHRA 5 #### [facility] , Protein [Mass/Vol] 6.7 g/dL Normal 6.4-8.9 [facility] Comment on above: Performed By: #### A LLERGEN 5 #### [facility] , Sodium [Moles/Vol] 136 mmol/L Normal 136-145 [facility] Comment on above: Performed By: #### A LLERGEN 5 #### [facility] , Urea nitrogen [Mass/Vol] 23 mg/dL Normal 7-25 [facility] Comment on above: Performed By: #### A LLERGEN 5 #### [facility] , Creatinine [Mass/volume] in Serum or PlasmaOrdered By: Alejandro Loo on 09-03-2022 Creatinine [Mass/Vol] 1.42 mg/dL 0.70-1.30 [facility] ECG 12 lead ECGon 09-03-2022 ECG 12 lead ECG [facility] [address] Electrocardiograph Report Signed Patient: Mary Jimenez MR#: [id number] : 1960 Acct:[id number] Age/Sex: 62 / M ADM Date: 09/03/22 Loc: ER Room: Type: [facility] ER Attending Dr: Ordering Provider: Alejandro Loo DO Date of Service: 09/03/2202/18/1023 ECG/ECG 12 lead ECG: Skin/Abscess/Foreign Body Copies to: Test Reason : Blood Pressure : / mmHG Vent. Rate : 078 BPM Atrial Rate : 078 BPM P-R Int : 180 ms QRS Dur : 100 ms QT Int : 350 ms P-R-T Axes : 064 -05 023 degrees QTc Int : 399 ms Normal sinus rhythm Confirmed by Alejandro LOO DO ([id number]) on 09/03/2022 11:25:34 AM Referred By: Electronically Signed By:Alejandro LOO DO Transcribed By: MUS Signed By Alejandro Loo DO 0 09/03/22 1125 Normal [facility] Eosinophils Auto (Bld) [#/Vo l]Ordered By: Alejandro Loo on 09-03-2022 Eosinophils (Bld) [#/Vol] 0.2 10*3/uL 0.0-0.45 [facility] Eosinophils/100 WBC Auto (Bl d)Ordered By: Alejandro Loo on 09-03-2022 Eosinophils/100 WBC (Bld) 3.2 % . [facility] Erythrocyte distribution wid th Auto (RBC) [Ratio]Ordered By: Alejandro Loo on 09-03-2022 Erythrocyte distribution width (RBC) [Ratio] 16.6 % 12.0-14.8 [facility] Globulin Calc (S) [Mass/Vol] Ordered By: Alejandro Loo on 09-03-2022 Globulin (S) [Mass/Vol] 2.5 g/dL [facility] Glucose [Mass/volume] in Ser um or PlasmaOrdered By: Alejandro Loo on 09-03-2022 Glucose [Mass/Vol] 127 mg/dL 74-109 [facility] Comment on above: ADA recommended refe rence rangeRandom Glucose Reference Range is dependent on time and content of last meal. Glucose of more than 200 mg/dL in a nonstressed, ambulatory subject supports the diagnosis of Diabetes Mellitus. Hematocrit Auto (Bld) [Volum e fraction]Ordered By: Alejandro Loo on 09-03-2022 Hematocrit (Bld) [Volume fraction] 37.0 % 38.8-50.0 [facility] Hemoglobin [Mass/volume] in BloodOrdered By: Alejandro Loo on 09-03-2022 Hemoglobin (Bld) [Mass/Vol] 12.2 g/dL 13.0-17.0 [facility] Ketones Auto test strip (U) [Mass/Vol]Ordered By: Alejandro Loo on 09-03-2022 Ketones (U) [Mass/Vol] Negative Negative Fi [facility] - Chemistry and C hemistry - challengeOrdered By: Alejandro Loo on 09-03-2022 GFR/1.73 sq M.predicted MDRD (S/P/Bld) [Vol rate/Area] 55.523 mL/min/{1.73_m2} [facility] - CoagulationOrde red By: Alejandro Loo on 09-03-2022 PT Coag (PPP) [Time] 11.9 s 9.0-12.9 [facility] Leukocytes [#/volume] correc herbert for nucleated erythrocytes in Blood by Automated counOrdered By: Alejandro Loo on 09-03-2022 WBC corrected for nucl RBC Auto (Bld) [#/Vol] 6.7 10*3/uL 4.1-10.5 [facility] Lymphocytes Auto (Bld) [#/Vo l]Ordered By: Alejandro Loo on 09-03-2022 Lymphocytes (Bld) [#/Vol] 0.8 10*3/uL 1.00-4.8 [facility] Lymphocytes/100 WBC Auto (Bl d)Ordered By: Alejandro Loo on 09-03-2022 Lymphocytes/100 WBC (Bld) 11.3 % . [facility] MCH Auto (RBC) [Entitic mass ]Ordered By: Alejandro Loo on 09-03-2022 MCH (RBC) [Entitic mass] 26.9 pg 27.5-35.2 [facility] MCHC Auto (RBC) [Mass/Vol]Or dered By: Alejandro Loo on 09-03-2022 MCHC (RBC) [Mass/Vol] 32.9 g/dL 32.5-35.6 [facility] MCV Auto (RBC) [Entitic vol] Ordered By: Alejandro Loo on 09-03-2022 MCV (RBC) [Entitic vol] 82.0 fL 83.5-101 [facility] Magnesiumon 09-03-2022 Magnesium [Mass/Vol] 2.0 mg/dL Normal 1.9-2.7 [facility] Comment on above: Result Comment: PERF ORMED BY: [place] [address] PATHOLOGIST GAME TRAPPER MARJORIE WAYNE M.D. Performed By: #### C BC, JAVIER #### [address] Magnesium [Mass/volume] in S irma or PlasmaOrdered By: Alejandro Loo on 09-03-2022 Magnesium [Mass/Vol] 2.0 mg/dL 1.9-2.7 [facility] Monocyte distribution width [Entitic volume] in Blood by AutomatedOrdered By: Alejandro Loo on 09-03-2022 Monocyte distribution width Auto (Bld) [Entitic vol] 17.05 % 0.00-20.00 [facility] Monocytes Auto (Bld) [#/Vol] Ordered By: Alejandro Loo on 09-03-2022 Monocytes (Bld) [#/Vol] 0.9 10*3/uL 0.0-0.8 [facility] Monocytes/100 WBC Auto (Bld) Ordered By: Alejandro Loo on 09-03-2022 Monocytes/100 WBC (Bld) 12.9 % . [facility] Neutrophils Auto (Bld) [#/Vo l]Ordered By: Alejandro Loo on 09-03-2022 Neutrophils (Bld) [#/Vol] 4.8 10*3/uL 1.8-7.7 [facility] Neutrophils/100 WBC Auto (Bl d)Ordered By: Alejandro Loo on 09-03-2022 Neutrophils/100 WBC (Bld) 71.9 % . [facility] Nitrite Test strip Ql (U)Ord ered By: Alejandro Loo on 09-03-2022 Nitrite Ql (U) Negative Negative [facility] No Panel InformationOrdered By: Alejandro Loo on 09-03-2022 Pharmacy Creatinine Clearance (Chem 72.62 [facility] Nucleated erythrocytes [Pres ence] in Blood by Automated countOrdered By: Alejandro Loo on 09-03-2022 Nucleated RBC Auto Ql (Bld) 0.1 /100{WBC} 0-0.5 [facility] Partial Thromboplastin Timeo n 09-03-2022 aPTT Coag (Bld) [Time] 40.4 s High 25.1-36.5 [facility] Comment on above: Result Comment: PERF ORMED BY: [facility] [address] [place] [address] PATHOLOGIST GAME TRAPPER MARJORIE WAYNE M.D. Performed By: #### A LLERGEN 5 #### [facility] , Platelet mean volume Auto (B ld) [Entitic vol]Ordered By: Alejandro Loo on 03-08-2023 Platelet mean volume (Bld) [Entitic vol] 9.2 fL 6.6-10.1 [facility] Platelet poor plasma interna tional normalized ratio (INR) by coagulation assay (relatOrdered By: Alejandro Loo on 09-03-2022 INR Coag (PPP) [Relative time] 1.0 {INR} [facility] Comment on above: INR Therapeutic Rang e A) Pre- and Peroperative OAT started two weeks before surgery. NOT HIP SURGERY: 1.5 - 2.5 HIP SURGERY: 2 - 3B) Primary and secondary prevention of venous THROMBOSIS: 2 - 3C) Active venous thrombosis, pulmonary embolismand prevention of recurrent venous thrombosis: 2 - 3D) Prevention of arterial thromboembolismincluding patients with mechanical heart valves: 3 - 4.5 Platelets Auto (Bld) [#/Vol] Ordered By: Alejandro Loo on 09-03-2022 Platelets (Bld) [#/Vol] 191 10*3/uL 150-450 [facility] Potassium [Moles/volume] in Serum or PlasmaOrdered By: Alejandro Loo on 09-03-2022 Potassium [Moles/Vol] 4.2 mmol/L 3.5-5.1 [facility] Protein Auto test strip (U) [Mass/Vol]Ordered By: Alejandro Loo on 09-03-2022 Protein (U) [Mass/Vol] Negative Negative [facility] Protein [Mass/volume] in Ser um or PlasmaOrdered By: Alejandro Loo on 09-03-2022 Protein [Mass/Vol] 6.7 g/dL 6.4-8.9 [facility] Prothrombin Time INRon 09-03 INR Coag (PPP) [Relative time] 1.0 {INR} Normal [facility] Comment on above: Result Comment: INR Therapeutic Range A) Pre- and Peroperative OAT started two weeks before surgery. NOT HIP SURGERY: 1.5 - 2.5 HIP SURGERY: 2 - 3 B) Primary and secondary prevention of venous THROMBOSIS: 2 - 3 C) Active venous thrombosis, pulmonary embolism and prevention of recurrent venous thrombosis: 2 - 3 D) Prevention of arterial thromboembolism including patients with mechanical heart valves: 3 - 4.5 Performed By: #### A BUSHRA 5 #### [facility] , PT Coag (PPP) [Time] 11.9 s Normal 9.0-12.9 [facility] Comment on above: Performed By: #### A BUSHRA 5 #### [facility] , RBC Auto (Bld) [#/Vol]Ordere d By: Alejandro Loo on 09-03-2022 RBC (Bld) [#/Vol] 4.51 10*6/uL 3.90-5.60 [facility] Serum or plasma albumin/glob ulin mass ratioOrdered By: Alejandro Loo on 09-03-2022 Albumin/Globulin [Mass ratio] 1.7 {ratio} [facility] Serum or plasma anion gap de terminationOrdered By: Alejandro Loo on 09-03-2022 Anion gap [Moles/Vol] 10.3 mmol/L 6.0-15.0 [facility] Sodium [Moles/volume] in Ser um or PlasmaOrdered By: Alejandro Loo on 09-03-2022 Sodium [Moles/Vol] 136 mmol/L 136-145 [facility] Specific gravity Auto test s trip (U) [Rel density]Ordered By: Alejandro Loo on 09-03-2022 Specific gravity (U) [Rel density] 1.010 1.001-1.030 [facility] Urea nitrogen [Mass/volume] in Serum or PlasmaOrdered By: Alejandro Loo on 09-03-2022 Urea nitrogen [Mass/Vol] 23 mg/dL 7-25 [facility] Urinalysison 09-03-2022 Appearance (U) Clear Normal Clear [facility] Comment on above: Order Comment: Name Collection Type:: Clean-Voided Midstream Performed By: #### C BC, CUBLD #### [facility] [address] [place] [address] [place] Bilirubin,Urine Negative Normal Negative [facility] Comment on above: Order Comment: Name Collection Type:: Clean-Voided Midstream Performed By: #### C BC, CUBLD #### [facility] [address] [place] [id number] [place] Color (U) Yellow Normal Yellow [facility] Comment on above: Order Comment: Name Collection Type:: Clean-Voided Midstream Performed By: #### C BC, CUBLD #### [address] Glucose Ql (U) Normal Normal Normal [facility] Comment on above: Order Comment: Name Collection Type:: Clean-Voided Midstream Performed By: #### C BC, CUBLD #### [address] Ketones Ql (U) Negative Normal Negative [facility] Comment on above: Order Comment: Name Collection Type:: Clean-Voided Midstream Performed By: #### C BC, CUBLD #### [address] Leukocyte esterase Test strip Ql (U) Negative Normal Negative [facility] Comment on above: Order Comment: Name Collection Type:: Clean-Voided Midstream Performed By: #### C BC, CUBLD #### [place] [address] [place] Nitrite,Urine Negative Normal Negative [facility] Comment on above: Order Comment: Name Collection Type:: Clean-Voided Midstream Performed By: #### C BC, CUBLD #### [address] Occult Blood,Urine Negative Normal Negative [facility] Comment on above: Order Comment: Name Collection Type:: Clean-Voided Midstream Result Comment: PERF ORMED BY: [place] [address] PATHOLOGIST GAME TRAPPER MARJORIE WAYNE M.D. Performed By: #### C BC, CUBLD #### [place] [address] [place] pH (U) 6.5 [pH] Normal 5.0-9.0 [facility] Comment on above: Order Comment: Name Collection Type:: Clean-Voided Midstream Performed By: #### C BC, CUBLD #### [place] [address] [place] Protein,Urine Negative Normal Negative [facility] Comment on above: Order Comment: Name Collection Type:: Clean-Voided Midstream Performed By: #### C BC, CUBLD #### [address] Specificy [place],Urine 1.010 Normal 1.001-1.030 [facility] Comment on above: Order Comment: Name Collection Type:: Clean-Voided Midstream Performed By: #### C BC, CUBLD #### [facility] [address] [place] [address] [place] Urobilinogen,Urine Normal Normal Normal [facility] Comment on above: Order Comment: Name Collection Type:: Clean-Voided Midstream Performed By: #### C BC, CUBLD #### [address] Urine clarity by refractomet ry automatedOrdered By: Alejandro Loo on 09-03-2022 Clarity Refractometry automated (U) Clear Clear [facility] Urine glucose measurement by automated test strip (mass/volume)Ordered By: Alejandro Loo on 09-03-2022 Glucose Auto test strip (U) [Mass/Vol] Normal mg/dL Normal [facility] Urine hemoglobin detection b y automated test stripOrdered By: Alejandro Loo on 09-03-2022 Hemoglobin Auto test strip Ql (U) Negative Negative [facility] Urine leukocyte esterase det ection by automated test stripOrdered By: Alejandro Loo on 09-03-2022 Leukocyte esterase Auto test strip Ql (U) Negative Negative [facility] Urobilinogen Auto test strip (U) [Mass/Vol]Ordered By: Alejandro Loo on 09-03-2022 Urobilinogen (U) [Mass/Vol] Normal mg/dL Normal [facility] WBC Auto (Bld) [#/Vol]Ordere d By: Alejandro Loo on 09-03-2022 WBC (Bld) [#/Vol] 6.7 10*3/uL 4.1-10.5 [facility] XR chest 2V*on 09-03-2022 XR chest 2V* [facility] [address] [place] [address] [place] [address] XRay Report Signed Patient: Mary Jimenez MR#: [id number] : 1960 Acct:[id number] Age/Sex: 62 / M ADM Date: 09/03/22 Loc: ER Room: Type: [facility] ER Attending Dr: Copies to: Alejandro Loo DO Ordering Provider: Alejandro Loo DO Date of Service: 09/03/22 XR/XR chest 2V*: Skin/Abscess/Foreign Body Plain film chest2 view HISTORY:Left arm numbness and swelling COMPARISON:05/03/2022 FINDINGS: The cardiac, mediastinal and hilar silhouettes are within normal limits. No acute lung process, pleural effusion or pneumothorax identified. Right shoulder arthroplasty. XR/XR chest 2V* IMPRESSION: No acute process. Impression dictated by: Eagle Prince M.D.09/03/2022 11:46 AM Dictation Location: [place] [address] Transcribed By: [facility] 09/03/22 1146 Dictated By: Eagle Prince DO 09/03/22 1144 Signed By: 09/03/22 1146 Normal [facility] pH Auto test strip (U)Ordere d By: Alejandro Loo on 09-03-2022 pH (U) 6.5 [pH] 5.0-9.0 [facility] A1C HEMOGLOBINon 08-25-2022 HbA1c (Bld) [Mass fraction] 5.7 % [facility] Other HbA1c (Bld) [Mass fraction]o n 08-25-2022 A1C HEMOGLOBIN [facility] Other Office Visit (Cardiology)on 07-16-2022 Follow-up visit Diagnoses/Problems Assessed Essential hypertension (401.9) (I10) Hyperlipidemia (272.4) (E78.5) Never a smoker Shortness of breath on exertion (786.05) (R06.02) Stroke (434.91) (I63.9) Angina pectoris (413.9) (I20.9) Morbid obesity with BMI of 45.0-49.9, adult (278.01,V85.42) (E66.01,Z68.42) Orders Angina pectoris Start: Isosorbide Mononitrate ER 30 MG Oral Tablet Extended Release 24 Hour; TAKE 1 TABLET DAILY Start: Nitroglycerin 0.4 MG Sublingual Tablet Sublingual; TAKE DIRECTED Renew: Aspirin EC 81 MG Oral Tablet Delayed Release; TAKE 1 TABLET DAILY Morbid obesity with BMI of 45.0-49.9, adult Healthy Weight Tips; Status:Complete - Retrospective Authorization; Done: 16Jul2022 Some eating tips that can help you lose weight.; Status:Complete - Retrospective Authorization; Done: 16Jul2022 SocHx: Never a smoker Tobacco Use Screening; Status:Complete; Done: 16Jul2022 Tobacco Use Screening; Status:Complete; Done: 16Jul2022 Patient Instructions Please bring all medicines, vitamins, and herbal supplements with you when you come to the office. Prescriptions will not be filled unless you are compliant with your follow up appointments or have a follow up appointment scheduled as per instruction of your physician. Refills should be requested at the time of your visit. Fall prevention education given Imdur 30 mg one daily NTG sl Follow up in 3 months Chief Complaint MARY JIMENEZ is being seen for an annual follow-up of. History of Present Illness Patient is here for follow-up continue management for hypertension and episode of chest pain. He has not been seen in almost 2 years. He report over the last couple of years he had total of 3 back surgery and laminectomies. He described chronic back pain. He admits to limited exercise tolerance. He has been having complaint of retrosternal chest discomfort with activity described as pressure. He did have a stress test 2 years ago which was negative. He admits to very limited exercise tolerance. ASSESSMENT: 1. Episode of chest pain suspicious of angina. Last stress test 2 years ago was negative 2. Hypertension, well controlled. 3. Obesity with significant weight gain 4. Previous history of stroke with expressive aphasia has improved. 5. Hyperlipidemia 6. Chronic back pain with multiple back surgeries RECOMMENDATIONS : 1. I asked that the patient empirical therapy with Imdur 30 mg once daily and use nitroglycerin as needed. I educated him about ischemic heart disease and advised him to the hospital if he had recurrence of his chest pain 2. The patient was counseled regarding losing weight, exercise, and risk factor adjustment. 3. Back in 2 to 3 months if continues to have symptoms of angina will consider cardiac catheterization 4. Continue aggressive approach risk factor modification Surgical History Problems History of Ankle surgery History of Colonoscopy 27Nov2016 History of Knee replacement History of Knee surgery History of Lower back surgery History of Rotator cuff repair History of Shoulder surgery Past Medical History Problems History of chest pain (V13.89) (Z87.898) History of sinus tachycardia (V12.59) (Z86.79) Current Meds Medication NameInstruction Aspirin EC 81 MG Oral Tablet Delayed ReleaseTAKE 1 TABLET DAILY. Atorvastatin Calcium 80 MG Oral TabletTAKE 1 TABLET AT BEDTIME Baclofen 20 MG Oral Tablet1 tablet 2 daimes a day Biotin Maximum Strength 78403 MCG Oral TabletTAKE 1 TABLET DAILY. Clopidogrel Bisulfate 75 MG Oral TabletTAKE 1 TABLET DAILY. Cymbalta 30 MG Oral Capsule Delayed Release ParticlesTAKE 1 CAPSULE 3 TIMES A DAY Dicyclomine HCl 20 MG CAPSTAKE 1 CAPSULE 4 TIMES DAILY. Doxazosin Mesylate 4 MG Oral TabletTAKE 1 TABLET DAILY. Finasteride 5 MG Oral TabletTAKE 1 TABLET DAILY. Fluticasone Propionate 50 MCG/ACT Nasal SuspensionUSE 1 SPRAY IN EACH NOSTRIL ONCE DAILY. Furosemide 40 MG Oral TabletTAKE 1 TABLET BY MOUTH ONE TIME A DAY HYDROcodone-Acetaminophe n 5-325 MG Oral TabletTAKE 1 TABLET EVERY 4 TO 6 HOURS NEEDED FOR PAIN. Klor-Con M20 20 MEQ Oral Tablet Extended ReleaseTAKE 1 TABLET 3 TIMES DAILY. Metoprolol Tartrate 50 MG Oral TabletTAKE 1 TABLET DAILY. Micardis 80 MG Oral TabletTAKE 1 TABLET ONCE DAILY. Mirtazapine 30 MG Oral TabletTAKE 1 TABLET AT BEDTIME. Nortriptyline HCl - 50 MG Oral Capsule1 tab qd Omeprazole 40 MG Oral Capsule Delayed ReleaseTAKE 1 CAPSULE Daily Pregabalin 200 MG Oral Capsuletake 1 capsule by mouth three times a day Promethazine HCl - 25 MG Oral TabletTAKE 1 TABLET 3 TIMES DAILY NEEDED. QUEtiapine Fumarate 25 MG Oral TabletTAKE 1 TABLET 2-3 TIMES DAILY. Testosterone Cypionate 200 MG/ML Intramuscular SolutionADMINISTER 1 AND 1/2 milliliters intramuscularly EVERY 2 WEEKS valACYclovir HCl - 500 MG Oral Tabletas needed Allergies Medication Penicillins Anaphylaxis; Swelling; Recorded By: Ariana Guevara; 07/29/2021 9:02:41 PM NonMedication Lat (more content not included)... Normal [facility] Tobacco Screening.on 023 Adult depression screening assessment No [facility] DO Work Phone: Fall risk assessment b) One or more fall s in the last year [facility] DO Work Phone: Tobacco use status [facility] b) No [facility] DO Work Phone: Anisocytosis LM Ql (Bld)Orde red By: Christine Mitchell on 06-12-2022 Anisocytosis Ql (Bld) Moderate Fir [facility] Basophils Auto (Bld) [#/Vol] Ordered By: Christine Mitchell on 06-12-2022 Basophils (Bld) [#/Vol] 0.1 10*3/uL 0.0-0.2 [facility] Basophils/100 WBC Auto (Bld) Ordered By: Christine Mitchell on 06-12-2022 Basophils/100 WBC (Bld) 1.1 % . [facility] C reactive protein [Mass/vol ume] in Serum or PlasmaOrdered By: Christine Mitchell on 06-12-2022 CRP [Mass/Vol] 1.0 mg/dL 0.0-1.0 [facility] COVID-19 SOFIAOrdered By: Lobito Holley on 06-12-2022 SARS-CoV+SARS-CoV-2 (COVID-19) Ag IA.rapid Ql (Resp) Negative Negative [facility] Comment on above: This is a duplicate Lizzy SARS Antigen (BLAKE) result to be used for statistical tracking purpose only. Eosinophils Auto (Bld) [#/Vo l]Ordered By: Christine Mitchell on 06-12-2022 Eosinophils (Bld) [#/Vol] 0.5 10*3/uL 0.0-0.45 [facility] Eosinophils/100 WBC Auto (Bl d)Ordered By: Christine Mitchell on 06-12-2022 Eosinophils/100 WBC (Bld) 9.0 % . [facility] Erythrocyte distribution wid th Auto (RBC) [Ratio]Ordered By: Christine Mitchell on 06-12-2022 Erythrocyte distribution width (RBC) [Ratio] 18.5 % 12.0-14.8 [facility] Erythrocyte sedimentation ra te by Photometric methodOrdered By: Christine Mitchell on 06-12-2022 ESR Photometric method (Bld) [Velocity] 11 mm/hr 0-19 [facility] Hematocrit Auto (Bld) [Volum e fraction]Ordered By: Christine Mitchell on 06-12-2022 Hematocrit (Bld) [Volume fraction] 38.9 % 38.8-50.0 [facility] Hemoglobin [Mass/volume] in BloodOrdered By: Christine Mitchell on 06-12-2022 Hemoglobin (Bld) [Mass/Vol] 12.3 g/dL 13.0-17.0 [facility] Hypochromia LM Ql (Bld)Order ed By: Christine Mitchell on 06-12-2022 Hypochromia Ql (Bld) Slight [facility] Leukocytes [#/volume] correc herbert for nucleated erythrocytes in Blood by Automated counOrdered By: Christine Mitchell on 06-12-2022 WBC corrected for nucl RBC Auto (Bld) [#/Vol] 5.0 10*3/uL 4.1-10.5 [facility] Lymphocytes Auto (Bld) [#/Vo l]Ordered By: Christine Mitchell on 06-12-2022 Lymphocytes (Bld) [#/Vol] 1.0 10*3/uL 1.00-4.8 [facility] Lymphocytes/100 WBC Auto (Bl d)Ordered By: Christine Mitchell on 06-12-2022 Lymphocytes/100 WBC (Bld) 19.8 % . [facility] MCH Auto (RBC) [Entitic mass ]Ordered By: Christine Mitchell on 06-12-2022 MCH (RBC) [Entitic mass] 24.9 pg 27.5-35.2 [facility] MCHC Auto (RBC) [Mass/Vol]Or dered By: Christine Mtichell on 06-12-2022 MCHC (RBC) [Mass/Vol] 31.6 g/dL 32.5-35.6 [facility] MCV Auto (RBC) [Entitic vol] Ordered By: Christine Mitchell on 06-12-2022 MCV (RBC) [Entitic vol] 78.8 fL 83.5-101 [facility] Microcytes LM Ql (Bld)Ordere d By: Christine Mitchell on 06-12-2022 Microcytes Ql (Bld) Moderate [facility] Monocytes Auto (Bld) [#/Vol] Ordered By: Christine Mitchell on 06-12-2022 Monocytes (Bld) [#/Vol] 0.7 10*3/uL 0.0-0.8 [facility] Monocytes/100 WBC Auto (Bld) Ordered By: Christine Mitchell on 06-12-2022 Monocytes/100 WBC (Bld) 13.7 % . [facility] Neutrophils Auto (Bld) [#/Vo l]Ordered By: Christine Mitchell on 06-12-2022 Neutrophils (Bld) [#/Vol] 2.8 10*3/uL 1.8-7.7 [facility] Neutrophils/100 WBC Auto (Bl d)Ordered By: Christine Mitchell on 06-12-2022 Neutrophils/100 WBC (Bld) 56.4 % . [facility] No Panel InformationOrdered By: Rafael Holley on 06-12-2022 SARS Antigen (LFIA) [facility] SARS Antigen (LFIA) [facility] Nucleated erythrocytes [Pres ence] in Blood by Automated countOrdered By: Christine Mitchell on 06-12-2022 Nucleated RBC Auto Ql (Bld) 0.1 /100{WBC} 0-0.5 [facility] Platelet adequacy [Presence] in Blood by Light microscopyOrdered By: Christine Mitchell on 06-12-2022 Platelets LM Ql (Bld) Normal Normal [facility] Platelet mean volume Auto (B ld) [Entitic vol]Ordered By: Christine Mitchell on 06-12-2022 Platelet mean volume (Bld) [Entitic vol] 9.3 fL 6.6-10.1 [facility] Platelet morphology finding [Identifier] in BloodOrdered By: Christine Mitchell on 06-12-2022 Platelet morphology finding Nom (Bld) N/A [facility] Platelets Auto (Bld) [#/Vol] Ordered By: Christine Mitchell on 06-12-2022 Platelets (Bld) [#/Vol] 213 10*3/uL 150-450 [facility] Platelets Large [Presence] i n Blood by Light microscopyOrdered By: Christine Mitchell on 06-12-2022 Platelets Large LM Ql (Bld) Slight [facility] Polychromasia [Presence] in Blood by Light microscopyOrdered By: Christine Mitchell on 06-12-2022 Polychromasia LM Ql (Bld) Slight [facility] RBC Auto (Bld) [#/Vol]Ordere d By: Christine Mitchell on 06-12-2022 RBC (Bld) [#/Vol] 4.94 10*6/uL 3.90-5.60 [facility] RBC morphologyOrdered By: Andria Mitchell on 06-12-2022 RBC morphology finding Nom (Bld) N/A [facility] WBC Auto (Bld) [#/Vol]Ordere d By: Christine Mitchell on 06-12-2022 WBC (Bld) [#/Vol] 5.0 10*3/uL 4.1-10.5 [facility] Basophils Auto (Bld) [#/Vol] Ordered By: Rafael Holley on 06-02-2022 Basophils (Bld) [#/Vol] 0.1 10*3/uL 0.0-0.2 [facility] Basophils/100 WBC Auto (Bld) Ordered By: Rafael Holley on 06-02-2022 Basophils/100 WBC (Bld) 1.2 % . [facility] Coding Summary.on 06-02-2022 Coding Summary. [id number] Gh0b Ww+PGhlYWQ+ZP2XJQNmS81wx EVfbE3PK4oXUX3DUMGNZAVJU S7RPK3euCK6JCixJ9ChznRc DlyadSPiSJ67GGw1MCG8kUcu LDvotK9vpIMbK8x3OpNbKI97 lA98ESnhKHHgKqR4MdLhjuzz bWFy H4qbOyDpeKAiMui+PHRhYmxl IHdpZHRoPScxMDAlJyBzdHls QP9rOj7qTRCdPFInvVgosTPf OiBj f5pqLOZyBDmvUT5odOimF9Re rOF5RMMkk0e8Qb83dPM+PHRk WPM8dEmjGKcly748CyRhb3nj IDM3 rFPbVPuwFXT4E17ec8I9OJNd POFiZYY3kKB2iJ3icQiixtac P2ZsfRObJsU7HWY0pRTjxU6v bGln psafzP7bTdr+W57JEM0BGQGO EP2ROrs1A6BmDftyoBC+PC90 EMFzYI45mPBrgLOtu7zayNh9 JzEw MYHyDPF8sByzOHyth6ZzUOUr K20dhPCew9Z5NDIjrZxmgXCg ElJujIL4bZ9aFPiurabys4hh dzsn Pmplu0jfpi72qE39R64pMKng SCJaIMD8TXZfAUNamUrysh0i uC0yNn4+VAtvm3rhs3nnwQy6 IjIw ETVvrpEqzRevLQF1l8PcFw06 V8VwdJfbq8DjVqo4vl25mJSp a7Z5uQV6OJshINBmnL2rFDja ZnQ6 OKGsSpVtiZ98gJFkIYapAb0l mQnupNfiTJ8lCZChdukqXTWl eB5cVYUckLDwuXbxSN4vOAWr bjtm u454XaNaDPW6ZVYhoFArH7Lv qS5fXlIuDQRlPFUvW3TnlUYq DWgcI577DIlzDyK6LAQwnmBj Y2Fs LAEtiJplMgR6o8U1Ll1Sp5Kf nbojGXL1VZxiBYAyEoH5YqJy TqK6C5JzJvy5MPRglZacQU7t J3Bh GTMxljrqepwnxTF1BNPgWTIt qB46jFSnGGyvMg7je2H8m623 XFEmFNKvuI96Lk9xcRirTFHc dCBU vO1barcoi5xzinfuByRaRGOg TIn8BIk5IPGxcFnaJoHmIBV4 NpP8ZNL1iKFpcO3foJpzslxu dG9w Oyc+I22apV4eZBF3MYX5kehi RFPfixUjPN28RU06V9UiWnnr dGFibGU+ZTLprtOaeNnpUY6y YmFj j8pua0SwHDypP4VyOAFkSGin Vbt4ICLaMIC8fUV1yB8pVRFe UFwxo3E3cZL9V0HfroVmvv8h b2xs DDOyVAcgI29exEGdk8R2MTDq zXM2UUVsjJitRmSbgR90Hwq+ EJJljRiep1QfBrzzc0ouz6ak dGg9 NgZoWTUunkCvzTjeEHV5l8Lv Sc58E14lHVehNSKoWUBlCNVf YWPbiCgsaj1xnX9oXt3+PGNv bCB3 pXB0sJ5yNZZiBaJ6AAinJ874 CsGmrCIiYqsqe8cfr3qroQg5 TrKkZZDogeBtnUahQMU4d8On Lz48 Q28sKFdjIKRnTILrYBZdWRTx kNsfwu7juU1qIs6+TL2jo9kr yv93yL61zKS+FKAqHVL0pZgh PSdw ITAbpA5qLSyzWcA9JXMlNeNt fU63xXRlLPmsJg4tlGtifVlr BH7sSWUsefppi986FrGfv4sp IDEw vRSbLHocZUL9I76yc6I4XXLx EMIsJQS5fOC0oN9vvBvclqsm bGVmdDsgdmVydGljYWwtYWxp Z246 IHRvcDsnPlBhdGllbnQgTmFt WBe1G6PbMvc1WBYuiSuhAV4t vGBdWNbjRl2ucJzfbPaaSN6g NTBp luorw095LmMaj8pfGQRfqHKy DCzfKTX6S26af6A0NSThZOYf OHI2bMX8eS4njEubxalssJKa dDsg myXwvDfqAGzeLKkrX930XNWj zCtzHbHoccLjDWDgfSI3MN09 EO55eHXbf0O2eSH6W8NgLXAm bmct swovvJH8SNDdXQCuyA62Mb3o fMhkMj4dGVQbYQR3MVBknERg L4XzfC7cFmFvBKEfEXRiY4Za eHQt OUybT374GXwsGkQ9UUEnlrKi S5VzCFMtuMblNlM7w9I7Md4E K0I9XO26VE08yIAbl7C6cGI5 J3Bh KDZwsfbnoscqqCP9KYDlMCZc bL10Ho4pwVtjTa1fNATaQTW4 TULqvLZlV7UmyA3oAxLjELTa MDAw C3XzgEOrGZglG217ZGldDqC6 LNHawmJwZ2YsSVSpxKqvWeC4 l1F8Lt2ROQm4AQ51OP22sNIq c3R5 bVB4V7MxFAAvmlfdeyutbXQ8 COJdYCMviO43Xg8zoSdaBb9e PAJmENU0CNFzlULkR5BbnX8n OiAj UVZlMZMdM8AudOLjUGxgZ946 CHsfUuG0WALgmdMjC6RlYZGg iZzmBaQ6r0C3Lj0NRKPwEE68 IFR5 qJB6RY78EE89U0HrYmsbyRYr bGU+PHRhYmxlIHdpZHRoPScx QXFeGdPoyUfuBI4kCa8gTDXz LWNv pModqCQtDhLtb6beNCQvNXcu HJ0prTfsB7MlyDW5FYGdx2h2 If44S67vH8DwaIW+PGNvbCB3 aWR0 kW1aVzWvYhJ8HHycA415JwLt gWCoJmumj8xdq2fdvOq9JiF6 GDLsgaXcoRvcEOF1z8PqMw36 Y29s IHdpZHRoPSIxNSUiIHZhbGln kr6pzO8gKn9+MSTovAW0pFH9 bX3yDfBrTqZ0LKoyA724OoFp cCIv Ntyww5qng3ndlBk9PiYsORDv fhGqkXlrBCK1t0CaFu01K6Ul yKams0PcKek9ty15jKKji0H1 bGU9 V1HlDOBkslefiBJsxExrRE5d QPNqejksJRDxcR8jFMJpM6k6 GjPtCjG0BLizA6CpihZ0KQMq cHQg COfzWPT6J54ul7Z8SWCjCUKv ESW1pPI9nZ2hiHnwfafpfFWj sIkgcrWltXtxVCudNOuzJ122 IHRv zXndUQIarX8gVEDxcYFugUru OP9nOIIpdauqXzgPFeGhJYEN UvcGCLg2K9CbPmr7ULHdiPgq ZT0n xTUcHKbtDk1xcQlqqFyxVO6u PWCccsykEZPetZ3iJABmrWVl wXicKD0jZHZtjjwcp113EdKr MHB0 YKUidELyX3DadK4rArMxJTVu WQSbA8VkyAXfWKhsJ399DEgg SdC6PFYayhSyO8ZtYIZxyXfl OiB0 e7J9Yc7hGe4dGq5xNLO9HV56 TZ69gWVqv6M6iOI0R7MqSOLm phaksswisTN2JBAvVGEjpR07 cGFk LWnrQw6eg7Q4d444EJGjCWQn zW19Ka0muZjhIGGbxYETaC5g fnylc9dvuvbvXtDuYNImCNq6 ZXh0 VCVjzHusDsOeSOB5TdG7DRD7 hLRsjR3xkGgqlfpeiS7yWou+ RaUuSQWkncB6L2ZmUbr9LOZb dHls EF1ueDKkRCavSp3jyNrhbOll BV3lIECokovoXCFcrM9zFFLp vNSfmKstCK5hXVWwaucdm446 OiAx RFJ7XHEnvIYjZ6SsyN7cMyPy ALIsKHMiY1OvlMDuVUwtN489 IVxhEtT6PTWnwoPuU3SaMDFk aWdu WtQ3y3C4Pz7EJUraQB02NN09 uSJsm3W4iIP7X5ZoNWTmbees xyapdGD4PINwLXDlcU76dOXe ZGlu Oa0qq8K8p148KKTkXABxlH01 Fc3isBkmGBPjuOWNgH8dlile r0pbehnlQdZhSUYiFWl3IOh0 LWFs bTfxLuXyBRK1BcV5OZC8mMWo aW6mlRszjpieeM8sFai+T3V0 zGV7gOKgoVunhPP+WQ98lr11 L3Rh DvreUaz1BMCuTNH4pNA2wP7b PJNzPYyej5N8nPP8W1KyvcEu jx4rz3rfHONbCIkfC39rfHAj c2U7 RVRgtTG9MOSldPuoYrZjmV35 Oyc+PBJlcRysk0NoZksdb1uf w6lfiOe3XtCkHRZuzmFtsTjw PSJ0 o2CsUl84X14pPPnsFSYlSXWy CXSvGUZnrEwwgk3ipS0bDo1+ TDHdiKD7iNQ6mX7yMgDiUsP5 YWxp Q184ZgOunWRmWinrc6uvi9hi vDf0XuCgHMKppqSdkLivIPJ7 w8XuCs39G0ZpgIwgx7VzMnj2 cj48 tAPqt6J5uSS1G1NuHMHbtuyb tRBblCdzNH7xCGLszzcoOHVk sM5dRAVzE2s1XwHgEnO0NDve O2Zv asA1ZVYzrAOpIANblTCZaC3o dfjuv6vyrfrzMgGtZPZiOUp1 RPt4ECUwhVjaNsJuBCT3XvJ3 ZXJ0 bGXzwP9tlDjenpevmN5cPai+ QGg0u3nzuFQbHC6nlHZ6FS12 CW16bKCwn3L3yPX6V8LxSSEf bmct xzjmkCU9ISBwWMKvdN58Yt9m bIxmKj2fGQYbBJT6LYAdiLWw A5RmzE5fAhPlXSEbAEZrR6Qb eHQt KSspJ210EVbqDoD3AEKygjEe P6WqSQGkxUwtMaM7r7N1Wj5I UQ22SE55PF90vDVcv7E1qDC1 J3Bh SULlbywnvyxzkCW3CRTyXJNl uU15Ld8wyKukGi6yAHAuPYH3 AUZgjNArR1InjR3mXaFqVLNe MDAw U7MsnXPoLJetD639ISbcHzN1 DNLwfbXhL4DpUSNmtBwaZjS3 o6T1Oj2GUk37YK62RD76hHEh c3R5 lGG2X8BwNNVeadrpxpnfpQZ7 RPZoYXZfcT00Zy2kdBcbCg4m KRHrCRE3XMMdxSKtH4LxoL5j OiAj YHAhRPOzE5FehPMyMEchL708 AWkaQaK3YNMcqdHfP9SoTXPw iHlvOyZ0c3U5Ba0BKWrlqra8 L3Rk PjwvdHI+SX63YZSgFA61dJPu iLAhc0uydEa6QbKuSBGsFVO6 jBepQWtkg3NoILFzZ69djKUn c2U6 IGNv (more content not included)... [facility] Coding Summary. [id number] Gh0b Ww+PGhlYWQ+CN1XFESlC19oi BFpbF4XV4fICT6PIZENTQDXX D4KVW1ufFH0DAhjF2XjoeJu SmncyBOgMG40JUu6JZM1tZjc BNpuoZ6zzFFuS9t4XtZyRK26 yD42HFoqQTAuVlX3XrKfbpge bWFy P3chYiOqoSNoVpm+PHRhYmxl IHdpZHRoPScxMDAlJyBzdHls ZH2kFc5oVNGrQMTrgYyeqQPl OiBj r9bvWVXsXEpmAG3heWhgQ9Hu fTD5CPKqs0j8Mq32qUG+PHRk XYV6nDufZSyar711XpRqb2bu IDM3 mNJtNPvqNGQ9J69kd3H1ILWf EAYjQCN5pZR5nI3yuNdljlec J6NriNQwGqS0IHK5dAKpcU6r bGln pddykL7yOrl+A32FNF4QKNLV NY4RKpp7N6UdSvagiAN+PC90 RBVeBW07jAWeeJGhn7yjoKb8 JzEw VWRcTVE1hYyaMNzww1AcXGYs W11riJRqg4D0OQUycHdokPEg QwUhzQO8qA2kWComoigvv5xd dzsn Qycna5lewd52bT97H89qDPfj GAYgTKX6PYLdOYBcxYpdsv3y dA6kRt1+XFhma7hjp7nuuVa8 IjIw FLXordTjkKonBQT6t3OvBg63 D0EkiIpdo6AdGhz3au01yBSm y0H0oOZ5JVenMUZmnB8uXBdn ZnQ6 GUBdDlNcuU09kCEwUTyrUc4l cAudwMnzKR4yFHNjhxhsEWQu cP0yXVMsbFKttXpdYV2xTZIj bjtm d534XfSpWAY5LUVimXKmC9Ye oU7aGrLqEJZvJFVpR2RtkZVu ZDdgR715QSxbQhD4FCVltzBn Y2Fs IRDumVyvNsR9x6S9Sx4Tv5Xs rwfvUWO0IPbqFGEoRoD8CoIs ZrW2H6HuTbb3ILQcsEshLR4l J3Bh PUVhazgxwbznoVL9TZXqTVJc sK84uXKzJEcxXs9ey4Y4g941 OLJkLIRkrO83Fz5kxBflCTBs dCBU sU1pjmgnc0itnthjOuIcXSLf DAi1UPg8BDIotLnnVmSgEZF9 KuZ1GWR4cSWnjQ2xwVlzxbiv dG9w Oyc+Z05loV3dDYE2GHX4uvcl DZLlpmDhXY46CA17O4SzChxg dGFibGU+OULjjbOoqQmjAH9v YmFj r2qyn1KfMBnwX1IiBLTzUQlp Ujz2NGUmNDB9zAW8hD5nWEEd GEsgp4G8hWA8D7VpdwHdzi9w b2xs FXYwSYifP52qgINcd0H7PBNn tHG2UAHlrBkrPcTfzC86Rel+ ZWMiwWhii3UdLprnn3ieg3eb dGg9 EuItAQIbvaGczGfvCTS1g8Zi Nh79J06wKXsfXJDqYCKlELSk MHLbyGfiez5umJ8zEp5+PGNv bCB3 dNV0qQ0jQHHbFoV7UQwtH403 EiDomHNcOtzpv1rpj5jiyEl6 UmRsOYLuplLuxCpxMQF2e0Gm Lz48 S51dBOmhSERzAUYqSKOhWOXh gHvwhl8kzI8oXn2+OI5vc3my jr79xU27oIZ+TRDyJWL7jTzb PSdw RQQlcM1xRQkhUkQ4SRMqJfWm iC99pDIgVVgmDe6tsRjazAfp YZ1tNIRczkffa295PbGdc7wk IDEw yBDlCPcaJQT8F88sm7N7QFQz NAAnDRT7jUJ6xR2cdUjdrrrg bGVmdDsgdmVydGljYWwtYWxp Z246 IHRvcDsnPlBhdGllbnQgTmFt ZPe5N5IsStd8KKRflKtmVW2u wMCfFGbqSe9rlOgnjBsnTG5g NTBp efvrs547GpBdo5osDATtxMXe KLojSNQ7N08cj7G8YIBoOPPw RSO9dUZ1sV9dlMcqyeywtSTz dDsg mhCptYauOGxgMUknK192PEUv zNpdLsKqeqAjOMVswQF3VB71 YA54kKUrq6L1gPE5B7WcKLOm bmct arsfwMN9JJRrANYysK52Hj1o vBswOd7fHWOfTVN8LQUbyQOa T5GnyX7iZxRpPAUxFOVtF7Wz eHQt CNggI761QNioDtZ2JUQeosAl M9HwLVIhrYwbZtL2e8Y1Zm0U D3W2WV29VN04fBRys6F0gYC3 J3Bh JNLrcqttznltfPH8BGNyNLRt dL74Bf2soQahMw3iEAMtKUA6 QTVewYEmT7JqyB1sSqSaOLNa MDAw J1ErfJWvCGgmB688GWtpNqP9 BQItzqGoT1SjZVIonMyxCnM9 s5A1Hq0KENb5IH71VM20eDSw c3R5 xNS7O1QvAXRakjblbcntcBH3 VEVdLIMfcZ79Kt4ldEnvPj1k SKEpUZJ7WLZooTTzF4SpyF0r OiAj MWGuGMZeG0TrgEWtLBooZ178 JBpqLnJ3KCHksjDzA1KsIOSv qKuzFoR9r9P8Ps1SCHCtAW82 IFR5 rWT5EI82XJ92I7ZfQdrarFMq bGU+PHRhYmxlIHdpZHRoPScx EBBoAsZaaNakHU7sSj9iQDTk LWNv cJttgWSfClHuk6utLUSkGKum GN3kbTpiN2GywFF5BSXrq6t2 Ka29T43bE3ZvqUT+PGNvbCB3 aWR0 yH0nLmNaJjC8GGxnO094JqFx lOVdHxjgw4pro4djeFc4LcN6 XBYounYbvFevGLX4x2JoTv95 Y29s IHdpZHRoPSIxNSUiIHZhbGln dv8noR8sCt4+TYIkeBV9mHL7 yR6iFrSkHgF2VNdbL588OtMe cCIv Nbbzi4awl1noxBi9IfFkOYNp hkZixIchSTB5o3TbOs34U1Ur rJdhr0GlMyw2af73hAFef8R6 bGU9 B7KqMHKwqclndNUooXrmWH4m ZRFkmuntDQFuoW3qODLoT9o3 BhDbAgB2EDisQ2JfxvX1GAVd cHQg LEibIGF2D11dx6K7NNIjKPXm MYP7aCN5eI4lfMhhkwkcmQHu kTgqsiPncXwwQFfnMIabW830 IHRv iBguHMRreC2yIYLlhXNhgBwv HS5dBMIjunzgJggCTzDtBFXC RrxDQRr5Q7TtSxb9GXUrcGle ZT0n cORmVLbkUw5ghKhxiUgtZH2u JPKdfezjQMTnuG4hASNikLZt hNdwWR2wDXUlwjlww948BtKr MHB0 MQNrxRSxY5IjdT2cMyGjFMMx XUCbH8BgyUEzXCsgD789XRay VsE1KXAvbdXgA6UjAZGqaThf OiB0 z1R3Xs9uRc5xWv2fDOE3AI67 NI52vEPkl2H7hWD5A9NkVLSx owsztcluuRU2EEIfLGIxxZ70 cGFk QYlmDu3om2S2b038XKOzBHQg xR98Xa0fwVlcXJEtiAZDyP2j ovyus5turwrgOmAyZXCvHAv0 ZXh0 RPQbuUenMkBkVNL9QcC3VRK9 kUOqnI0csHbjuribkK1nDwo+ EwPoNWWjugA8L9IhPdz0QZAs dHls TP6kgZWvBKjlRe1rkZdtxQqt JN1zFZTxitgtUHPfjG8dXMEe vSCdkJyvAE0dFUPbwzjpn397 OiAx ZBK7HKWiiZAwT5RwvH7hPjRw DHSgQPXoK0ZiyLMdIAzqM309 TVkwJhI7AYAzxrRtL6DpWITz aWdu IaW7e5C2Ry1SMGklNC56DY81 uIWja2Z5hEW0K5KjGGYhtibd owezqPB7EKArFSMdrE07sSMz ZGlu Ed7ny7O6p782HSDnIHSwfA80 Ox7rjIhvGUOxqUJEkX2llykg g3rjmgknGkSjLHTwZZc4ALf6 LWFs uVzpZwNmMLG1WsG8MMO0oKQp eX3lzYikwbejxJ2wUlf+T3V0 kUP9fUNwdSkakGL+ER54gm19 L3Rh NvftNvy4HEHsQPS5fST3cX8e VRDzUQlwl8D4sHC1Z1RgixBv av5ov6uiODQeHHbgV90kaCPz c2U7 AZPucWW8CALauRgpOiFvgH61 Oyc+EJQufYgyv4IhCdjwd6vw i9vdfPf5YkWpVWDxatXtjJom PSJ0 l1JvXl28C56jHZmyONWbOPRf VBKrVTGejPpcco2msU3aHs8+ BJRbwEO3vPQ5aC4gXwDwDiE9 YWxp X972OqOykTHnAkrms7pze2jv oBi1VpHbOTWyinFxhJrjIAD9 p0KmVv60G3FrzTrtg2JoEzz9 cj48 yLLfi0L1yFB0I7YlJBGkpktw dDUztTtaBO0mXRMnjxpuPERu iY6hQCGfD8z7QkWrGmH1EBnp O2Zv jnN5YANekRKcTYIisUJOkO9k jucyl4axjbykMsXqSDZtDLz3 HEz4JQCmoYbxWxIeNXE1LaJ2 ZXJ0 jISmoV0cvLswwrhtaG9vMya+ MOs6n6kmwJYhGG7xtHY0BK70 VX96xGZbg9C7pBE7C3KvYPGt bmct xjszbYH1BOPuBDJxeJ97Dk3a sMuuPy5nWAAiAOO5SMYubSHc P6EtvR3gTxQbDQWiPMAkA3Ay eHQt PFrfD186UDxfBxI1GQTtpzXe O3YlKCHerTrzMiI7n7T5Ej6I FT60QZ38DB22qZAqn9V3dXJ6 J3Bh ECNjvsbzurvkgIR8KUBzFOPs zL64Qo9jkKfqHn0gQZGbREG1 MCSdpPWhJ3HqdW0yTdUjSKWo MDAw H4JvgXNyNOzjZ371LUeqHxG0 YKJcdgFbD7AfIAZnsItnTyO5 j1F0Dr0TCj63HH24FF08qQLd c3R5 rFA1Z5LaUOUksmorhakdoOT0 AEAfOHNqlL12Ih3vfPtqWz3r HNNfZWJ4BUBtzRUuS5ZzyX9a OiAj QDGmAJWoO8JvxUBiTLlbH620 BGheFlH5VIBvgaBhU2QaHIPy bBjnNmS8p0Z0Wc2JNDotdgg2 L3Rk PjwvdHI+UF42FJDeFL07hKWh kLIyc8zqqCo9KoAdXEVyHGQ9 dRjiZFurp0HnMLQkC66wdUSb c2U6 IGNv (more content not included)... [facility] Creatinine and Glomerular fi ltration rate.predicted panel (S/P/Bld)Ordered By: Rafael Holley on 06-02-2022 Creatinine [Mass/Vol] 1.62 mg/dL 0.64-1.27 [facility] Eosinophils Auto (Bld) [#/Vo l]Ordered By: Rafael Holley on 06-02-2022 Eosinophils (Bld) [#/Vol] 0.3 10*3/uL 0.0-0.45 [facility] Eosinophils/100 WBC Auto (Bl d)Ordered By: Rafael Holley on 06-02-2022 Eosinophils/100 WBC (Bld) 6.9 % . [facility] Erythrocyte distribution wid th Auto (RBC) [Ratio]Ordered By: Rafael Holley on 06-02-2022 Erythrocyte distribution width (RBC) [Ratio] 18.3 % 12.0-14.8 [facility] Estimated glomerular filtrat ion rate (GFR) non- AmericanOrdered By: Rafael Holley on 06-02-2022 GFR/1.73 sq M.predicted among non-blacks MDRD (S/P/Bld) [Vol rate/Area] 43 mL/Min [facility] Hematocrit Auto (Bld) [Volum e fraction]Ordered By: Rafael Holley on 06-02-2022 Hematocrit (Bld) [Volume fraction] 39.3 % 38.8-50.0 [facility] Hemoglobin [Mass/volume] in BloodOrdered By: Rafael Holley on 06-02-2022 Hemoglobin (Bld) [Mass/Vol] 12.4 g/dL 13.0-17.0 [facility] Leukocytes [#/volume] correc herbert for nucleated erythrocytes in Blood by Automated counOrdered By: Rafael Holley on 06-02-2022 WBC corrected for nucl RBC Auto (Bld) [#/Vol] 5.1 10*3/uL 4.1-10.5 [facility] Lymphocytes Auto (Bld) [#/Vo l]Ordered By: Rafael Holley on 06-02-2022 Lymphocytes (Bld) [#/Vol] 0.9 10*3/uL 1.00-4.8 [facility] Lymphocytes/100 WBC Auto (Bl d)Ordered By: Rafael Holley on 06-02-2022 Lymphocytes/100 WBC (Bld) 18.5 % . [facility] MCH Auto (RBC) [Entitic mass ]Ordered By: Rafael Holley on 06-02-2022 MCH (RBC) [Entitic mass] 24.2 pg 27.5-35.2 [facility] MCHC Auto (RBC) [Mass/Vol]Or dered By: Rafael Holley on 06-02-2022 MCHC (RBC) [Mass/Vol] 31.6 g/dL 32.5-35.6 [facility] MCV Auto (RBC) [Entitic vol] Ordered By: Rafael Holley on 06-02-2022 MCV (RBC) [Entitic vol] 76.7 fL 83.5-101 [facility] Monocytes Auto (Bld) [#/Vol] Ordered By: Rafael Holley on 06-02-2022 Monocytes (Bld) [#/Vol] 0.5 10*3/uL 0.0-0.8 [facility] Monocytes/100 WBC Auto (Bld) Ordered By: Rafael Holley on 06-02-2022 Monocytes/100 WBC (Bld) 9.6 % . [facility] Neutrophils Auto (Bld) [#/Vo l]Ordered By: Rafael Holley on 06-02-2022 Neutrophils (Bld) [#/Vol] 3.2 10*3/uL 1.8-7.7 [facility] Neutrophils/100 WBC Auto (Bl d)Ordered By: Rafael Holley on 06-02-2022 Neutrophils/100 WBC (Bld) 63.8 % . [facility] No Panel InformationOrdered By: Rafael Holley on 06-02-2022 Estimated GFR () 53 mL/Min [facility] Comment on above: GFR estimated refere nce range: According to KDOQI guidelines, <60 ml/min/1.73m2 is sufficient to diagnose a patient with chronic kidney disease. Pharmacy Creatinine Clearance (Chem N/A [facility] Nucleated erythrocytes [Pres ence] in Blood by Automated countOrdered By: Rafael Holley on 06-02-2022 Nucleated RBC Auto Ql (Bld) 0.1 /100{WBC} 0-0.5 [facility] Platelet mean volume Auto (B ld) [Entitic vol]Ordered By: Rafael Holley on 06-02-2022 Platelet mean volume (Bld) [Entitic vol] 8.7 fL 6.6-10.1 [facility] Platelets Auto (Bld) [#/Vol] Ordered By: Rafael Holley on 06-02-2022 Platelets (Bld) [#/Vol] 199 10*3/uL 150-450 [facility] RBC Auto (Bld) [#/Vol]Ordere d By: Rafael Holley on 06-02-2022 RBC (Bld) [#/Vol] 5.13 10*6/uL 3.90-5.60 [facility] Serum or plasma anion gap de terminationOrdered By: Rafael Holley on 06-02-2022 Anion gap [Moles/Vol] 15.3 mmol/L 6.0-15.0 [facility] Serum or plasma calcium paula urement (mass/volume)Ordered By: Rafael Holley on 06-02-2022 Calcium [Mass/Vol] 9.1 mg/dL 8.2-10.2 [facility] Serum or plasma chloride miriam surement (moles/volume)Ordered By: Rafael Holley on 06-02-2022 Chloride [Moles/Vol] 99 mmol/L 95-114 [facility] Serum or plasma glucose paula urement (mass/volume)Ordered By: Rafael Holley on 06-02-2022 Glucose [Mass/Vol] 107 mg/dL 70-100 [facility] Comment on above: ADA recommended refe rence rangeRandom Glucose Reference Range is dependent on time and content of last meal. Glucose of more than 200 mg/dL in a nonstressed, ambulatory subject supports the diagnosis of Diabetes Mellitus. Serum or plasma potassium me asurement (moles/volume)Ordered By: Rafael Holley on 06-02-2022 Potassium [Moles/Vol] 4.5 mmol/L 3.5-5.1 [facility] Serum or plasma sodium measu rement (moles/volume)Ordered By: Rafael Holley on 06-02-2022 Sodium [Moles/Vol] 134 mmol/L 136-146 [facility] Serum or plasma total carbon dioxide measurement (moles/volume)Ordered By: Rafael Holley on 06-02-2022 CO2 [Moles/Vol] 24.2 mmol/L 22.0-30.0 [facility] Serum or plasma urea nitroge n measurement (mass/volume)Ordered By: Rafael Holley on 06-02-2022 Urea nitrogen [Mass/Vol] 27 mg/dL 9- [facility] WBC Auto (Bld) [#/Vol]Ordere d By: Rafael Holley on 06-02-2022 WBC (Bld) [#/Vol] 5.1 10*3/uL 4.1-10.5 [facility] CNPNon 05-30-2022 CNPN Telephone (FP Complete) -------- MARY JIMENEZ ([id number]) 1960 M Date Time Provider Department 05/30/22 LOYDA STEELE NMADA During your visit today, we recorded the following information about you: Merced Javed 05/30/2022 11:[address] Feliz at [facility] at [phone] would like to speak with Dr. Steele Re: abnormal MRI lumbar results with possible abscess. Patient has appt. On 06-18 Greta Nunez RN 05/30/2022 11:41 AM Signed Will forward for review. Christine Gutierrez PA-C 05/30/2022 11:46 AM Signed We would need the disc to review imaging I do not see it uploaded to [employer]. Sandra Godoy Pss 05/30/2022 2:53 PM Signed MRI report scanned into patient's chart. Mary Grace Alejo 05/30/2022 2:54 PM Signed Received report of patient's MRI, in [facility] for review. Christine Gutierrez PA-C 06/02/2022 10:25 AM Signed We would still need the disc to review imaging, I have ordered a CBC, ESR, CRP, last results we have are from January. Can fax orders if need be. Khushi Clifford RN 06/02/2022 10:37 AM Signed Call placed to pt to inform of new orders for blood work. Pt also informed that MRI of disc is still needed for reviewing. States he will mail it in before next appointment. Allergies As of Date: 05/30/2022 Noted Allergy Reaction PENICILLINS 06/07/2014 10 - Anaphylaxis LATEX 09/04/2016 2 - Rash Date Reviewed: 05/13/2022 Reviewed by: Roro Ryan RN - Fully Assessed Reason for Visit: abnormal MRI findings [Other] Primary Visit Diagnosis:Infection [B99.9] Order(s):CBC + DIFF [SQCBCDIF] Order #: [id number] FUTURE C-REACTIVE PROTEIN (CRP) [SQCRP] Order #: [id number] FUTURE SED RATE WESTERGREN [SQWSR] Order #: [id number] FUTURE Prescriptions as of 06/02/2022 - Pregabalin (LYRICA) 200 mg capsule Take 1 capsule by mouth three times daily for 90 days. - methylPREDNISolone (MEDROL DOSE-PACK) 4 mg Dose-Pack As Instructed per package - ibuprofen (MOTRIN) 800 mg tablet Take 1 tablet by mouth every 8 hours as needed for pain. - QUEtiapine (SEROQUEL) 25 mg tablet TAKE ONE TABLET BY MOUTH EVERY NIGHT AT BEDTIME - lactobacillus combination no.4 3 billion cell cap Take 1 capsule by mouth once daily. - clopidogrel (PLAVIX) 75 mg tablet Take 1 tablet by mouth once daily. Please hold this medication until post op day 10 - telmisartan (MICARDIS) 80 mg tablet Take 80 mg by mouth once daily. - docusate sodium (COLACE) 100 mg capsule Take 1 capsule by mouth twice daily. - docosahexaenoic acid/epa (FISH OIL ORAL) Take 5 capsules by mouth once daily. - fremanezumab-vfrm (AJOVY SYRINGE SUBCUTANEOUS) Inject 250 mg/mL subcutaneously. every 28 days for migraines - CHROMIUM PICOLINATE ORAL Take 800 mcg by mouth once daily. - MAGNESIUM ORAL Take 400 mg by mouth once daily. - finasteride (PROSCAR) 5 mg tablet Take 5 mg by mouth daily at bedtime. - CALCIUM CARBONATE/VITAMIN D3 (CALCIUM 600 + D ORAL) Take 1 tablet by mouth once daily. - LACTOBACILLUS ACIDOPHILUS (PROBIOTIC ACIDOPHILUS ORAL) Take 1 capsule by mouth once daily. - doxepin capsule 10 mg Take 10 mg by mouth daily at bedtime. Takes 2 tabs at bedtime - dicyclomine (BENTYL) 10 mg capsule Take 20 mg by mouth as needed. 4 times daily as needed - eletriptan (RELPAX) 40 mg tablet Take 40 mg by mouth as needed. may repeat in 2 hours if necessary - atorvastatin (LIPITOR) 80 mg tablet Take 80 mg by mouth daily at bedtime. - DULoxetine (CYMBALTA) 30 mg capsule Take 1 capsule by mouth once daily. Take with 60 mg for 90 mg total dose. - baclofen (LIORESAL) 20 mg tablet Take 20 mg by mouth daily at bedtime. - furosemide (LASIX) 40 mg tablet Take 40 mg by mouth once daily. - doxazosin (CARDURA) 4 mg tablet Take 4 mg by mouth once daily. - metoprolol succinate XL, long acting, (TOPROL XL) 50 mg 24 hr tablet Take 50 mg by mouth once daily. - cyanocobalamin (VITAMIN B-12) 1,000 mcg tab Take 1,000 mcg by mouth once daily. - fluticasone (FLONASE) 50 mcg/actuation nasal spray Use 2 Sprays in each nostril twice daily. Problem List As Of Date 05/30/2022 Noted Resolved Headache(784.0) [R51] 07/18/2014 08/18/2021 Adjustment disorder with anxious mood [F43.22] 07/18/2014 Chronic daily headache [R51.9] 07/18/2014 08/18/2021 Intractable chronic migraine without aura [G43.*07/18/2014 Chronic back pain [M54.9, G89.29] 07/18/2014 08/18/2021 Chronic pain syndrome [G89.4] 07/18/2014 Opioid dependence (HCC) [F11.20] 07/18/2014 Medication overuse headache [G44.40] 07/18/2014 08/18/2021 Opiate dependence (HCC) [F11.20] 10/20/2014 08/18/2021 Pseudoarthrosis of lumbar spine [S32.009K] 12/08/2014 08/18/2021 Sacroiliitis (HCC) [M46.1] 10/17/2015 08/18/2021 Secondary hypertension [I15.9] 08/07/2021 08/07/2021 Primary hypertension [I10] 08/07/2021 Cerebrovascular accident (CVA) due to thrombosi*08/07/2021 Spondylolisthesi (more content not included)... Normal [facility] CHEMISTRYOrdered By: SYSTEM SYSTEM on 05-28-2022 Creatinine [Mass/Vol] 1.3 mg/dL Normal 0.5 - 1.3 mg/dL [facility] [place] Remisol GFR/1.73 sq M.predicted among blacks MDRD (S/P/Bld) [Vol rate/Area] mL/min/1.73 m2 Normal >=59mL/min/ 1.73 m2 [facility] [place] Chem S GFR/1.73 sq M.predicted among non-blacks MDRD (S/P/Bld) [Vol rate/Area] 56 mL/min/1.73 m2 Low >=59mL/min/ 1.73 m2 [facility] [place] Chem S CHEMISTRYOrdered By: SYSTEM SYSTEM on 05-27-2022 CRP [Mass/Vol] 0.7 mg/dL Normal <=1.9mg/dL [facility] – [place] Remis ol HEMATOLOGYOrdered By: Ely Piedra on 05-27-2022 Anisocytosis Ql (Bld) Present (05/27/22 10:37 AM) Normal [facility] – [place] [facility]eMan[facility] Erythrocyte distribution width (RBC) [Ratio] 18.4 % High 10.9 - 14.2 % [facility] Hematocrit (Bld) [Volume fraction] 38.6 % Normal 37.7 - 49.0 % [facility] Hemoglobin (Bld) [Mass/Vol] 12.5 g/dL Low 13.5 - 17.5 gm/dL [facility] Hypochromia Auto Ql (Bld) Present (05/27/22 10:37 AM) Normal [facility] – [place] [facility] MCH (RBC) [Entitic mass] 24.3 pg Low 27.0 - 34.0 pg [facility] MCHC (RBC) [Mass/Vol] 32.3 g/dL Normal 31.4 - 36.0 gm/dL [facility] MCV (RBC) [Entitic vol] 75.2 fL Low 80.0 - 100.0 fL [facility] Microcytes Ql (Bld) Present (05/27/22 10:37 AM) Normal [facility] Morphology Williams (Bld) [Interp] See Morphology (05/27/22 10:37 AM) Normal [facility] Platelet mean volume (Bld) [Entitic vol] 8.9 fL Normal 6.4 - 10.8 fL [facility] Platelets (Bld) [#/Vol] 219.0 E9/L Normal 150.0 - 500.0 E9/L [facility] Polychromasia LM Ql (Bld) Present (05/27/22 10:37 AM) Normal [facility] RBC (Bld) [#/Vol] 5.1 E12/L Normal 4.3 - 5.9 E12/L [facility] Sed Rate Automated 10 mm/h Normal 0 - 19 mm/hr [facility] WBC corrected for nucl RBC Auto (Bld) [#/Vol] 8.2 E9/L Normal 4.0 - 11.0 E9/L [facility] HEMATOLOGYOrdered By: SYSTEM SYSTEM on 05-27-2022 Basophils/100 WBC (Bld) 1.0 % Normal 0.0 - 2.0 % [facility] Basophils/Leukocytes Auto (Bld) [Pure # fraction] 0.1 E9/L Normal 0.0 - 0.2 E9/L [facility] Eosinophils/100 WBC (Bld) 7.7 % Normal 0.0 - 8.0 % [facility] Eosinophils/Leukocytes Auto (Bld) [Pure # fraction] 0.6 E9/L High 0.0 - 0.5 E9/L [facility] Lymphocytes/100 WBC (Bld) 13.6 % Low 14.0 - 50.0 % [facility] Lymphocytes/Leukocytes Auto (Bld) [Pure # fraction] 1.1 E9/L Normal 1.0 - 4.0 E9/L [facility] Monocytes/100 WBC (Bld) 8.4 % Normal 4.0 - 14.0 % [facility] – [place] [facility] Monocytes/Leukocytes Auto (Bld) [Pure # fraction] 0.7 E9/L Normal 0.2 - 1.0 E9/L [facility] – [place] [facility] Neutrophils/100 WBC (Bld) 69.3 % Normal 36.0 - 75.0 % [facility] – [place] [facility] Neutrophils/Leukocytes Auto (Bld) [Pure # fraction] 5.7 E9/L Normal 2.0 - 7.5 E9/L [facility] – [place] [facility] Reference Laboratory Testing Ordered By: Yadi Bender on 05-27-2022 Test Code 137211 Invalid Interpretation Code [facility] – [place] SendOutsSS Test Name [place] 6 Invalid Interpretation Code [facility] – [place] SendOutsSS Pamela 05-14-2022 CNPN Telephone ([facility]) -------- MARY JIMENEZ ([id number]) 1960 M Date Time Provider Department 05/14/22 GUILLAUME BHANDARI [facility] During your visit today, we recorded the following information about you: Anni Douglas RN 05/14/2022 2:06 PM Signed Left message on voicemail for patient to call office back or read [employer] message regarding Post Spine Injection phone call: Caudal epidural steroid injection on 05/13/2022 Anni Douglas RN 05/16/2022 8:06 AM Signed Left message on voicemail for patient to call office back or to read [employer] message regarding Post Spine Injection phone call: Caudal epidural steroid injection on 05/13/2022 Allergies As of Date: 05/14/2022 Noted Allergy Reaction PENICILLINS 06/07/2014 10 - Anaphylaxis LATEX 09/04/2016 2 - Rash Date Reviewed: 05/13/2022 Reviewed by: Roro Ryan RN - Fully Assessed Reason for Visit: Post Injection Call [Other] Prescriptions as of 05/16/2022 - Pregabalin (LYRICA) 200 mg capsule Take 1 capsule by mouth three times daily for 90 days. - methylPREDNISolone (MEDROL DOSE-PACK) 4 mg Dose-Pack As Instructed per package - ibuprofen (MOTRIN) 800 mg tablet Take 1 tablet by mouth every 8 hours as needed for pain. - QUEtiapine (SEROQUEL) 25 mg tablet TAKE ONE TABLET BY MOUTH EVERY NIGHT AT BEDTIME - lactobacillus combination no.4 3 billion cell cap Take 1 capsule by mouth once daily. - clopidogrel (PLAVIX) 75 mg tablet Take 1 tablet by mouth once daily. Please hold this medication until post op day 10 - telmisartan (MICARDIS) 80 mg tablet Take 80 mg by mouth once daily. - docusate sodium (COLACE) 100 mg capsule Take 1 capsule by mouth twice daily. - docosahexaenoic acid/epa (FISH OIL ORAL) Take 5 capsules by mouth once daily. - fremanezumab-vfrm (AJOVY SYRINGE SUBCUTANEOUS) Inject 250 mg/mL subcutaneously. every 28 days for migraines - CHROMIUM PICOLINATE ORAL Take 800 mcg by mouth once daily. - MAGNESIUM ORAL Take 400 mg by mouth once daily. - finasteride (PROSCAR) 5 mg tablet Take 5 mg by mouth daily at bedtime. - CALCIUM CARBONATE/VITAMIN D3 (CALCIUM 600 + D ORAL) Take 1 tablet by mouth once daily. - LACTOBACILLUS ACIDOPHILUS (PROBIOTIC ACIDOPHILUS ORAL) Take 1 capsule by mouth once daily. - doxepin capsule 10 mg Take 10 mg by mouth daily at bedtime. Takes 2 tabs at bedtime - dicyclomine (BENTYL) 10 mg capsule Take 20 mg by mouth as needed. 4 times daily as needed - eletriptan (RELPAX) 40 mg tablet Take 40 mg by mouth as needed. may repeat in 2 hours if necessary - atorvastatin (LIPITOR) 80 mg tablet Take 80 mg by mouth daily at bedtime. - DULoxetine (CYMBALTA) 30 mg capsule Take 1 capsule by mouth once daily. Take with 60 mg for 90 mg total dose. - baclofen (LIORESAL) 20 mg tablet Take 20 mg by mouth daily at bedtime. - furosemide (LASIX) 40 mg tablet Take 40 mg by mouth once daily. - doxazosin (CARDURA) 4 mg tablet Take 4 mg by mouth once daily. - metoprolol succinate XL, long acting, (TOPROL XL) 50 mg 24 hr tablet Take 50 mg by mouth once daily. - cyanocobalamin (VITAMIN B-12) 1,000 mcg tab Take 1,000 mcg by mouth once daily. - fluticasone (FLONASE) 50 mcg/actuation nasal spray Use 2 Sprays in each nostril twice daily. Problem List As Of Date 05/14/2022 Noted Resolved Headache(784.0) [R51] 07/18/2014 08/18/2021 Adjustment disorder with anxious mood [F43.22] 07/18/2014 Chronic daily headache [R51.9] 07/18/2014 08/18/2021 Intractable chronic migraine without aura [G43.*07/18/2014 Chronic back pain [M54.9, G89.29] 07/18/2014 08/18/2021 Chronic pain syndrome [G89.4] 07/18/2014 Opioid dependence (HCC) [F11.20] 07/18/2014 Medication overuse headache [G44.40] 07/18/2014 08/18/2021 Opiate dependence (HCC) [F11.20] 10/20/2014 08/18/2021 Pseudoarthrosis of lumbar spine [S32.009K] 12/08/2014 08/18/2021 Sacroiliitis (HCC) [M46.1] 10/17/2015 08/18/2021 Secondary hypertension [I15.9] 08/07/2021 08/07/2021 Primary hypertension [I10] 08/07/2021 Cerebrovascular accident (CVA) due to thrombosi*08/07/2021 Spondylolisthesis, lumbar region [M43.16] 08/16/2021 Status post lumbar spinal fusion [Z98.1] 08/17/2021 Mixed hyperlipidemia [E78.2] 08/18/2021 BPH (benign prostatic hyperplasia) [N40.0] 08/18/2021 GERD (gastroesophageal reflux disease) [K21.9] 08/18/2021 CKD (chronic kidney disease) stage 3, GFR 30-59*08/18/2021 Post-operative infection [T81.40XA] 09/12/2021 Obesity [E66.9] 09/12/2021 Delirium [R41.0] 09/15/2021 Back pain [M54.9] 11/21/2021 Low back pain [M54.50] 11/21/2021 Weakness of left lower extremity [R29.898] 11/27/2021 Sleep apnea [G47.30] 12/17/2021 Lumbar pseudoarthrosis [S32.009K] 12/31/2021 Obesity, Class II, BMI 35-39.9 [E66.9] 01/01/2022 Anemia [D64.9] 01/04/2022 Lumbar radiculopathy [M54.16] 05/13/2022 Encounter Status:Closed by ANNI DOUGLAS on (more content not included)... [facility] HISTORY PHYSICALon HISTORY PHYSICAL HNO ID: [id number] Author: Glory Patterson PA-C Service: Anesthesiology Author Type: Physician Stamp Analyst Type: HANDP Filed: 05/13/2022 8:44 AM Note Text: PROCEDURAL SEDATION HISTORY AND PHYSICAL EXAM SERVICE DATE: 05/13/2022 SERVICE TIME: 8:43 AM Subjective HPI: This is a 61 year old male who presents with lower back pain. PAST ANESTHESIA HISTORY: No history of adverse event PAST MEDICAL HISTORY Diagnosis Date Anxiety Dyslipidemia Hypertension Obesity 09/12/2021 Obstructive sleep apnea Stroke (HCC) Urinary retention PAST SURGICAL HISTORY Procedure Laterality Date PAST SURGICAL HISTORY OF 12/07/2014 L4-5 PAST SURGICAL HISTORY OF Bilateral shoulder PAST SURGICAL HISTORY OF Bilateral knees REVISE MEDIAN N/CARPAL TUNNEL SURG Left Prior to Admission medications as of 05/13/22 0841 Medication Sig Last Dose Taking Pregabalin (LYRICA) 200 mg capsule Take 1 capsule by mouth three times daily for 90 days. 05/12/2022 Yes QUEtiapine (SEROQUEL) 25 mg tablet TAKE ONE TABLET BY MOUTH EVERY NIGHT AT BEDTIME 05/12/2022 Yes clopidogrel (PLAVIX) 75 mg tablet Take 1 tablet by mouth once daily. Please hold this medication until post op day 10 05/04/2022 Yes telmisartan (MICARDIS) 80 mg tablet Take 80 mg by mouth once daily. 05/12/2022 Yes docusate sodium (COLACE) 100 mg capsule Take 1 capsule by mouth twice daily. 05/12/2022 Yes docosahexaenoic acid/epa (FISH OIL ORAL) Take 5 capsules by mouth once daily. Past Week Yes fremanezumab-vfrm (AJOVY SYRINGE SUBCUTANEOUS) Inject 250 mg/mL subcutaneously. every 28 days for migraines 05/12/2022 Yes CHROMIUM PICOLINATE ORAL Take 800 mcg by mouth once daily. 05/12/2022 Yes MAGNESIUM ORAL Take 400 mg by mouth once daily. 05/12/2022 Yes finasteride (PROSCAR) 5 mg tablet Take 5 mg by mouth daily at bedtime. 05/12/2022 Yes CALCIUM CARBONATE/VITAMIN D3 (CALCIUM 600 + D ORAL) Take 1 tablet by mouth once daily. 05/12/2022 Yes LACTOBACILLUS ACIDOPHILUS (PROBIOTIC ACIDOPHILUS ORAL) Take 1 capsule by mouth once daily. 05/12/2022 Yes doxepin capsule 10 mg Take 10 mg by mouth daily at bedtime. Takes 2 tabs at bedtime 05/12/2022 Yes dicyclomine (BENTYL) 10 mg capsule Take 20 mg by mouth as needed. 4 times daily as needed 05/12/2022 Yes eletriptan (RELPAX) 40 mg tablet Take 40 mg by mouth as needed. may repeat in 2 hours if necessary 05/12/2022 Yes atorvastatin (LIPITOR) 80 mg tablet Take 80 mg by mouth daily at bedtime. 05/12/2022 Yes DULoxetine (CYMBALTA) 30 mg capsule Take 1 capsule by mouth once daily. Take with 60 mg for 90 mg total dose. Patient taking differently: Take 30 mg by mouth three times daily. Takes 30 mg three times daily per patient 05/12/2022 Yes baclofen (LIORESAL) 20 mg tablet Take 20 mg by mouth daily at bedtime. 05/12/2022 Yes furosemide (LASIX) 40 mg tablet Take 40 mg by mouth once daily. 05/12/2022 Yes doxazosin (CARDURA) 4 mg tablet Take 4 mg by mouth once daily. 05/12/2022 Yes metoprolol succinate XL, long acting, (TOPROL XL) 50 mg 24 hr tablet Take 50 mg by mouth once daily. 05/13/2022 Yes cyanocobalamin (VITAMIN B-12) 1,000 mcg tab Take 1,000 mcg by mouth once daily. 05/12/2022 Yes fluticasone (FLONASE) 50 mcg/actuation nasal spray Use 2 Sprays in each nostril twice daily. 05/12/2022 Yes methylPREDNISolone (MEDROL DOSE-PACK) 4 mg Dose-Pack As Instructed per package ibuprofen (MOTRIN) 800 mg tablet Take 1 tablet by mouth every 8 hours as needed for pain. lactobacillus combination no.4 3 billion cell cap Take 1 capsule by mouth once daily. ALLERGIES Allergen Reactions Penicillins Anaphylaxis Latex Rash Objective PHYSICAL EXAM: The remainder of the physical exam is noncontributory. 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] Medication and Non-Pharmacologic VTE Prophylaxis/Anticoagulan ts VTE Prophylaxis: NA Provisional Diagnosis/Treatment Plan: LUMBAR EPIDURAL BLOCK W/INJECTION NON NEUROLYTIC W/IMAGE GUIDANCE - Pending SIGNATURE: Glory Patterson PA-C PATIENT NAME: Mary Jimenez DATE: May 13, 2022 TIME: 8:43 AM [facility] OPERATIVE NOon 05-13-2022 OPERATIVE NO HNO ID: [id number] Author: Guillaume Bhandari DO Service: Physical Medicine AND Rehabilitation Author Type: Physician Type: Operative Report Filed: 05/13/2022 10:50 AM Note Text: PROCEDURE REPORT Surgery/Procedure Date: May 13, 2022 Interventionalist: Guillaume Bhandari DO Procedure(s): Caudal epidural steroid injection Pre-Op/Pre-Procedure Diagnosis: Lumbar radiculopathy Post-Op Diagnosis: same SUBJECTIVE: Mary Jimenez is a 61 year old male who presents to [facility] for a Caudal epidural steroid injection. This is his first (1) procedure with me. 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 Patient has pain low back to right or left posteriorly down to the calf. Pain is 4/10 lying down and 8.5/10 while on his feet. I have reviewed the nurses notes and am aware of the patient's history. OBJECTIVE: Vital signs are documented in the chart by nursing prior to and throughout the procedure. INFORMED CONSENT: Risks, benefits, alternatives and personnel discussed with patient who consents to proceed. A formal sign in and timeout with team members and patient present were performed prior to procedure start/delivery of medication. PROCEDURE: Procedure: Caudal Epidural Steroid Injection Mary Jimenez was transferred to the Procedure Room. After placement of routine monitors (blood pressure, pulse oximetry, and heart rate monitored by dedicated nurse), the procedure was performed in the usual manner. Sedation: Yes: Moderate sedation; Versed 2 mg IV, given at 1020 See [facility] archival for Conscious Sedation Record and informed consent. Total sedation time 22 minutes. Start time: 1026 Stop time: 1042 Fluoroscopy time: 36 seconds Level: Sacral Hiatus Technique: Patient positioned prone. Procedure area was prepped with Betadine and draped with sterile coverings. Entry point was identified utilizing fluoroscopic imaging. Entry point was anesthetized with 1% lidocaine. A midline approach was used with C-arm guidance. A #18 gauge Touhy needle was inserted and directed to appropriate location within the interlaminar window. Standard loss of resistance technique employed to identify epidural space. Aspiration revealed no blood or cerebrospinal fluid in the loss of resistance syringe. Syringe was removed and no CSF was visualized draining from needle. 2 cc of iohexol contrast was then injected. Fluoroscopic imaging was performed in two views and showed epidural flow pattern. A solution of 1% lidocaine 4 cc, preservative free saline 6 cc, and Dexamethasone 20 mg was injected. No paresthesias or pain were experienced. The needle was then removed. Adequate hemostasis was obtained at the needle puncture site. The patient's back was cleaned and a sterile dressing was applied. Patient tolerated the procedure well and was taken conscious and in stable condition to the recovery room for observation. No complications as a result of this procedure. Post procedure precautions and instructions were reviewed with the patient who verbalized understanding. I/primary surgeon/proceduralist performed the entire procedure. No complications were encountered. Estimated blood loss: none Specimens: none Implanted devices: none Drains: none Post procedure physical exam unchanged from pre procedure. Significant findings: Patient has significant superficial tenderness in the injection area even with needle for local anesthetic and this does lead to him moving some on the table. ASSESSMENT: Pre Procedure diagnosis: Lumbar radiculopathy Post-Procedure diagnosis: same Pre Procedure Pain Level: same as above Post Procedure Pain Level: As documented in nursing notes and paper chart Purposeful response to verbal or tactile stimulation: Yes PLAN: Patient is to complete post-procedure pain diary and contact office as follow-up in 2-3 weeks. Mary Jimenez was transferred to the recovery room and is to be discharged home in stable condition. Post op instructions reviewed with patient. Guillaume Bhandari, DO [facility] Basophils Auto (Bld) [#/Vol] Ordered By: Cathy Zavala on 05-12-2022 Basophils (Bld) [#/Vol] 0.0 10*3/uL 0.0-0.2 [facility] Basophils/100 WBC Auto (Bld) Ordered By: Cathy Zavala on 05-12-2022 Basophils/100 WBC (Bld) 0.4 % . [facility] Eosinophils Auto (Bld) [#/Vo l]Ordered By: Cathy Zavala on 05-12-2022 Eosinophils (Bld) [#/Vol] 0.5 10*3/uL 0.0-0.45 [facility] Eosinophils/100 WBC Auto (Bl d)Ordered By: Cathy Zavala on 05-12-2022 Eosinophils/100 WBC (Bld) 7.4 % . [facility] Erythrocyte distribution wid th Auto (RBC) [Ratio]Ordered By: Cathy Zavala on 05-12-2022 Erythrocyte distribution width (RBC) [Ratio] 18.4 % 12.0-14.8 [facility] Hematocrit Auto (Bld) [Volum e fraction]Ordered By: Cathy Zavala on 05-12-2022 Hematocrit (Bld) [Volume fraction] 39.8 % 38.8-50.0 [facility] Hemoglobin [Mass/volume] in BloodOrdered By: Cathy Zavala on 05-12-2022 Hemoglobin (Bld) [Mass/Vol] 12.4 g/dL 13.0-17.0 [facility] Laboratory - Hematology and Cell countsOrdered By: Cathy Zavala on 05-12-2022 Nucleated RBC/100 WBC (Bld) [Ratio] 0.1 % 0-0.5 [facility] Leukocytes [#/volume] in Blo od by Automated countOrdered By: Cathy Zavala on 05-12-2022 WBC (Bld) [#/Vol] 7.1 10*3/uL 4.5-11.0 [facility] Lymphocytes Auto (Bld) [#/Vo l]Ordered By: Cathy Zavala on 05-12-2022 Lymphocytes (Bld) [#/Vol] 1.3 10*3/uL 1.00-4.8 [facility] Lymphocytes/100 WBC Auto (Bl d)Ordered By: Cathy Zavala on 05-12-2022 Lymphocytes/100 WBC (Bld) 18.7 % . [facility] MCH Auto (RBC) [Entitic mass ]Ordered By: Cathy Zavala on 05-12-2022 MCH (RBC) [Entitic mass] 24.1 pg 27.5-35.2 [facility] MCHC Auto (RBC) [Mass/Vol]Or dered By: Cathy Zavala on 05-12-2022 MCHC (RBC) [Mass/Vol] 31.3 g/dL 32.5-35.6 [facility] MCV Auto (RBC) [Entitic vol] Ordered By: Cathy Zavala on 05-12-2022 MCV (RBC) [Entitic vol] 77.2 fL 83.5-101 [facility] Monocytes Auto (Bld) [#/Vol] Ordered By: Cathy Zavala on 05-12-2022 Monocytes (Bld) [#/Vol] 0.8 10*3/uL 0.0-0.8 [facility] Monocytes/100 WBC Auto (Bld) Ordered By: Cathy Zavala on 05-12-2022 Monocytes/100 WBC (Bld) 10.6 % . [facility] Neutrophils Auto (Bld) [#/Vo l]Ordered By: Cathy Zavala on 05-12-2022 Neutrophils (Bld) [#/Vol] 4.4 10*3/uL 1.8-7.7 [facility] Neutrophils/100 WBC Auto (Bl d)Ordered By: Cathy Zavala on 05-12-2022 Neutrophils/100 WBC (Bld) 62.9 % . [facility] Platelet mean volume Auto (B ld) [Entitic vol]Ordered By: Cathy Zavala on 05-12-2022 Platelet mean volume (Bld) [Entitic vol] 9.4 fL 6.6-10.1 [facility] Platelets Auto (Bld) [#/Vol] Ordered By: Cathy Zavala on 05-12-2022 Platelets (Bld) [#/Vol] 207 10*3/uL 150-450 [facility] RBC Auto (Bld) [#/Vol]Ordere d By: Cathy Zavala on 05-12-2022 RBC (Bld) [#/Vol] 5.15 10*6/uL 3.90-5.60 [facility] Cholesterol [Mass/volume] in Serum or PlasmaOrdered By: Cathy Zavala on 05-04-2022 Cholesterol [Mass/Vol] 148 mg/dL 140-200 [facility] Comment on above: Chol less than 200 m g/dl low riskChol 201-239 mg/dl borderline riskChol 240 mg/dl and greater high risk Cholesterol in LDL Calc [Mas s/Vol]Ordered By: Cathy Zavala on 05-04-2022 Cholesterol in LDL [Mass/Vol] 78 mg/dL 0-100 [facility] Comment on above: LDL ATP III CLASSIFI CATIONLDL less than 100 mg/dL OptimalLDL 100-129 mg/dL Near or above optimalLDL 130-159 mg/dL Borderline highLDL 160-189 mg/dL HighLDL greater than 189 mg/dL Very high Cholesterol in VLDL Calc [Ma ss/Vol]Ordered By: Cathy Zavala on 05-04-2022 Cholesterol in VLDL [Mass/Vol] 29 mg/dL [facility] Creatinine and Glomerular fi ltration rate.predicted panel (S/P/Bld)Ordered By: Cathy Zavala on 05-04-2022 Creatinine [Mass/Vol] 1.26 mg/dL 0.64-1.27 [facility] Estimated glomerular filtrat ion rate (GFR) non- AmericanOrdered By: Cathy Zavala on 05-04-2022 GFR/1.73 sq M.predicted among non-blacks MDRD (S/P/Bld) [Vol rate/Area] 58 mL/Min [facility] Glucose mean value [Mass/vol ume] in Blood Estimated from glycated hemoglobinOrdered By: Cathy Zavala on 05-04-2022 Average glucose Estimated from glycated hemoglobin (Bld) [Mass/Vol] 128 mg/dL [facility] Hemoglobin A1c percentageOrd ered By: Cathy Zavala on 05-04-2022 HbA1c (Bld) [Mass fraction] 6.1 % 4.3-5.6 [facility] Comment on above: Increased risk for d iabetes: 5.7 - 6.4diabetes: >6.4glycemic control for adults with diabetes: <7.0 No Panel InformationOrdered By: Cathy Zavala on 05-04-2022 Estimated GFR () > 60 mL/Min [facility] Comment on above: GFR estimated refere nce range: According to KDOQI guidelines, <60 ml/min/1.73m2 is sufficient to diagnose a patient with chronic kidney disease. Pharmacy Creatinine Clearance (Chem 81.70 [facility] Serum or plasma anion gap de terminationOrdered By: Cathy Zavala on 05-04-2022 Anion gap [Moles/Vol] 13.9 mmol/L 6.0-15.0 [facility] Serum or plasma calcium paula urement (mass/volume)Ordered By: Cathy Zavala on 05-04-2022 Calcium [Mass/Vol] 8.8 mg/dL 8.2-10.2 [facility] Serum or plasma chloride miriam surement (moles/volume)Ordered By: Cathy Zavala on 05-04-2022 Chloride [Moles/Vol] 101 mmol/L 95-114 [facility] Serum or plasma glucose paula urement (mass/volume)Ordered By: Cathy Zavala on 05-04-2022 Glucose [Mass/Vol] 92 mg/dL 70-100 [facility] Comment on above: ADA recommended refe rence rangeRandom Glucose Reference Range is dependent on time and content of last meal. Glucose of more than 200 mg/dL in a nonstressed, ambulatory subject supports the diagnosis of Diabetes Mellitus. Serum or plasma high density lipoprotein (HDL) cholesterol measurementOrdered By: Cathy Zavala on 05-04-2022 Cholesterol in HDL [Mass/Vol] 40 mg/dL 29-71 [facility] Comment on above: HDL CHOL ATP-III CLA SSIFICATION Cardiovascular RiskHDL > or equal to 60 mg/dL LOWHDL < 40 mg/dL HIGH Serum or plasma potassium me asurement (moles/volume)Ordered By: Cathy Zavala on 05-04-2022 Potassium [Moles/Vol] 4.3 mmol/L 3.5-5.1 [facility] Serum or plasma sodium measu rement (moles/volume)Ordered By: Cathy Zavala on 05-04-2022 Sodium [Moles/Vol] 140 mmol/L 136-146 [facility] Serum or plasma total carbon dioxide measurement (moles/volume)Ordered By: Cathy Zavala on 05-04-2022 CO2 [Moles/Vol] 29.4 mmol/L 22.0-30.0 [facility] Serum or plasma total choles terol/high density lipoprotein (HDL) cholesterol mass ratOrdered By: Cathy Zavala on 05-04-2022 Cholesterol.total/Chol esterol in HDL [Mass ratio] 3.7 {ratio} <5.0 [facility] Serum or plasma urea nitroge n measurement (mass/volume)Ordered By: Cathy Zavala on 05-04-2022 Urea nitrogen [Mass/Vol] 16 mg/dL 9-23 [facility] Triglyceride [Mass/volume] i n Serum or PlasmaOrdered By: Cathy Zavala on 05-04-2022 Triglyceride [Mass/Vol] 149 mg/dL 35-149 [facility] Comment on above: TRIG ATP III CLASSIF ICATIONTRIG less than 150 mg/dL NormalTRIG 150-199 mg/dL Borderline highTRIG 200-500 mg/dL High TRIG greater than 500 mg/dL Very highStandard traceable to the Center for Disease Conrtrol and Prevention (CDC) test method. Automated erythrocytes count in urine sediment (number/area)Ordered By: Amarilis Jameson on 05-03-2022 RBC Auto (Urine sed) [#/Area] None seen [HPF] 0-4 [facility] Automated leukocytes count i n urine sediment (number/area)Ordered By: Amarilis Jameson on 05-03-2022 WBC Auto (Urine sed) [#/Area] 0-1 [HPF] 0-4 [facility] Basophils Auto (Bld) [#/Vol] Ordered By: Amarilis Gisell on 05-03-2022 Basophils (Bld) [#/Vol] 0.1 10*3/uL 0.0-0.2 [facility] Basophils/100 WBC Auto (Bld) Ordered By: Amarilis Jameson on 05-03-2022 Basophils/100 WBC (Bld) 1.1 % . [facility] Bilirubin Test strip Ql (U)O rdered By: Amarilis Jameson on 05-03-2022 Bilirubin Ql (U) Negative Negative [facility] COVID-19 Positive/NegativeOr dered By: Amarilis Jameson on 05-03-2022 SARS-CoV-2 (COVID-19) N gene LATOYA+probe Ql (Resp) Negative Negative [facility] Comment on above: Testing for SARS-CoV -2 by RT-PCRThis test was developed and its performance characteristics determined by [employer] and validated at the [facility]. This test has not been FDA cleared or approved. This test has been authorized by FDA under an Emergency Use Authorization (EUA). This test has been validated in accordance with the FDA's Guidance Document (Policy for Diagnostics Testing in Laboratories Certified to Perform High Complexity Testing under CLIA prior to Emergency Use Authorization for Coronavirus Disease-2019 during the Public Health Emergency) issued on September 29, 2019. This test is only authorized for the duration of time the declaration that circumstances exist justifying the authorization of the emergency use of in vitro diagnostic tests for detection of SARS-CoV-2 virus and/or diagnosis of COVID-19 infection under section 564(b)(1) of the Act, 21 U.S.C. 360bbb-3(b)(1), unless the authorization is terminated or revoked sooner. COVID-19 SOFIAOrdered By: Miguel Angel Jameson on 05-03-2022 SARS-CoV+SARS-CoV-2 (COVID-19) Ag IA.rapid Ql (Resp) Negative Negative [facility] Comment on above: This is a duplicate Lizzy SARS Antigen (BLAKE) result to be used for statistical tracking purpose only. Color Auto (U)Ordered By: Miguel Angel Jameson on 05-03-2022 Color (U) Yellow Yellow [facility] Creatinine (Bld) [Mass/Vol]O rdered By: Amarilis Jameson on 05-03-2022 Creatinine [Mass/Vol] 1.7 mg/dL 0.6-1.3 [facility] Comment on above: ER/ESD physician is notified/shown all ISTAT results.Critical values may be confirmed by laboratory testing ifdeemed necessary by ER attending doctor. Creatinine and Glomerular fi ltration rate.predicted panel (S/P/Bld)Ordered By: Amarilis Jameson on 05-03-2022 Creatinine [Mass/Vol] 1.59 mg/dL 0.64-1.27 [facility] Eosinophils Auto (Bld) [#/Vo l]Ordered By: Amarilis Jameson on 05-03-2022 Eosinophils (Bld) [#/Vol] 0.3 10*3/uL 0.0-0.45 [facility] Eosinophils/100 WBC Auto (Bl d)Ordered By: Amarilis Jameson on 05-03-2022 Eosinophils/100 WBC (Bld) 4.5 % . [facility] Erythrocyte distribution wid th Auto (RBC) [Ratio]Ordered By: Amarilis Jameson on 05-03-2022 Erythrocyte distribution width (RBC) [Ratio] 18.0 % 12.0-14.8 [facility] Estimated glomerular filtrat ion rate (GFR) non- AmericanOrdered By: Amarilis Jameson on 05-03-2022 GFR/1.73 sq M.predicted among non-blacks MDRD (S/P/Bld) [Vol rate/Area] 44 mL/Min [facility] Glucose Glucometer (BldC) [M ass/Vol]Ordered By: Amarilis Jameson on 05-03-2022 Glucose [Mass/Vol] 83 mg/dL [facility] Comment on above: Random Glucose Refer ence Range is dependent on time and content of last meal. Glucose of more than 200 mg/dL in a nonstressed, ambulatory subject supports the diagnosis of Diabetes Mellitus. Hematocrit Auto (Bld) [Volum e fraction]Ordered By: Amarilis Jameson on 05-03-2022 Hematocrit (Bld) [Volume fraction] 37.1 % 38.8-50.0 [facility] Hemoglobin [Mass/volume] in BloodOrdered By: Amarilis Jameson on 05-03-2022 Hemoglobin (Bld) [Mass/Vol] 11.5 g/dL 13.0-17.0 [facility] Ketones Auto test strip (U) [Mass/Vol]Ordered By: Amarilis Jameson on 05-03-2022 Ketones (U) [Mass/Vol] Negative Negative [facility] Laboratory - Chemistry and C hemistry - challengeOrdered By: Amarilis Jameson on 05-03-2022 Magnesium [Mass/Vol] 2.1 mg/dL 1.6-2.6 [facility] Natriuretic peptide B (Bld) [Mass/Vol] 20.0 pg/mL 5-100 [facility] - Hematology and Cell countsOrdered By: Amarilis Jameson on 05-03-2022 Nucleated RBC/100 WBC (Bld) [Ratio] 0.0 % 0-0.5 [facility] - Microbiology an d Antimicrobial susceptibilityOrdered By: Amarilis Jameson on 05-03-2022 SARS-CoV-2 (COVID-19) RNA LATOYA+probe Ql (Unsp spec) N/A [facility] - UrinalysisOrder ed By: Amarilis Jameson on 05-03-2022 Hyaline casts LM Ql (Urine sed) 0-8 [LPF] 0-8 [facility] Leukocytes [#/volume] in Blo od by Automated countOrdered By: Amarilis Jameson on 05-03-2022 WBC (Bld) [#/Vol] 7.5 10*3/uL 4.5-11.0 [facility] Lymphocytes Auto (Bld) [#/Vo l]Ordered By: Amarilis Jameson on 05-03-2022 Lymphocytes (Bld) [#/Vol] 1.3 10*3/uL 1.00-4.8 [facility] Lymphocytes/100 WBC Auto (Bl d)Ordered By: Amarilis Jameson on 11-05-2022 Lymphocytes/100 WBC (Bld) 17.2 % . [facility] MCH Auto (RBC) [Entitic mass ]Ordered By: Amarilis Jameson on 05-03-2022 MCH (RBC) [Entitic mass] 23.8 pg 27.5-35.2 [facility] MCHC Auto (RBC) [Mass/Vol]Or dered By: Amarilis Jameson on 05-03-2022 MCHC (RBC) [Mass/Vol] 30.9 g/dL 32.5-35.6 [facility] MCV Auto (RBC) [Entitic vol] Ordered By: Amarilis Jameson on 05-03-2022 MCV (RBC) [Entitic vol] 77.2 fL 83.5-101 [facility] Monocytes Auto (Bld) [#/Vol] Ordered By: Amarilis Jameson on 05-03-2022 Monocytes (Bld) [#/Vol] 0.7 10*3/uL 0.0-0.8 [facility] Monocytes/100 WBC Auto (Bld) Ordered By: Amarilis Jameson on 05-03-2022 Monocytes/100 WBC (Bld) 9.5 % . [facility] Neutrophils Auto (Bld) [#/Vo l]Ordered By: Amarilis Jameson on 05-03-2022 Neutrophils (Bld) [#/Vol] 5.0 10*3/uL 1.8-7.7 [facility] Neutrophils/100 WBC Auto (Bl d)Ordered By: Amarilis Jameson on 05-03-2022 Neutrophils/100 WBC (Bld) 67.7 % . [facility] Nitrite Test strip Ql (U)Ord ered By: Amarilis Jameson on 05-03-2022 Nitrite Ql (U) Negative Negative [facility] No Panel InformationOrdered By: Amarilis Jameson on 05-03-2022 SARS Antigen (LFIA) [facility] POC Estimated GFR 50 [facility] Comment on above: GFR estimated refere nce range: According to KDOQI guidelines, <60 ml/min/1.73m2 is sufficient to diagnose a patient with chronic kidney disease. POC Estimated GFR Non- Amer 41 [facility] Estimated GFR () 54 mL/Min [facility] Comment on above: GFR estimated refere nce range: According to KDOQI guidelines, <60 ml/min/1.73m2 is sufficient to diagnose a patient with chronic kidney disease. Pharmacy Creatinine Clearance (Chem 66.36 [facility] SARS Antigen (LFIA) [facility] Platelet mean volume Auto (B ld) [Entitic vol]Ordered By: Amarilis Jameson on 05-03-2022 Platelet mean volume (Bld) [Entitic vol] 8.8 fL 6.6-10.1 [facility] Platelets Auto (Bld) [#/Vol] Ordered By: Amarilis Jameson on 05-03-2022 Platelets (Bld) [#/Vol] 213 10*3/uL 150-450 [facility] Protein Auto test strip (U) [Mass/Vol]Ordered By: Amarilis Jameson on 05-03-2022 Protein (U) [Mass/Vol] Negative Negative [facility] RBC Auto (Bld) [#/Vol]Ordere d By: Amarilis Jameson on 05-03-2022 RBC (Bld) [#/Vol] 4.81 10*6/uL 3.90-5.60 [facility] Serum or plasma anion gap de terminationOrdered By: Amarilis Jameson on 05-03-2022 Anion gap [Moles/Vol] 11.7 mmol/L 6.0-15.0 [facility] Serum or plasma calcium paula urement (mass/volume)Ordered By: Amarilis Jameson on 05-03-2022 Calcium [Mass/Vol] 8.2 mg/dL 8.2-10.2 [facility] Serum or plasma chloride miriam surement (moles/volume)Ordered By: Amarilis Jameson on 05-03-2022 Chloride [Moles/Vol] 103 mmol/L 95-114 [facility] Serum or plasma glucose paula urement (mass/volume)Ordered By: Amarilis Jameson on 05-03-2022 Glucose [Mass/Vol] 84 mg/dL 70-100 [facility] Comment on above: ADA recommended refe rence rangeRandom Glucose Reference Range is dependent on time and content of last meal. Glucose of more than 200 mg/dL in a nonstressed, ambulatory subject supports the diagnosis of Diabetes Mellitus. Serum or plasma potassium me asurement (moles/volume)Ordered By: Amarilis Jameson on 05-03-2022 Potassium [Moles/Vol] 4.3 mmol/L 3.5-5.1 [facility] Serum or plasma sodium measu rement (moles/volume)Ordered By: Amarilis Jameson on 05-03-2022 Sodium [Moles/Vol] 136 mmol/L 136-146 [facility] Serum or plasma total carbon dioxide measurement (moles/volume)Ordered By: Amarilis Jameson on 05-03-2022 CO2 [Moles/Vol] 25.6 mmol/L 22.0-30.0 [facility] Serum or plasma urea nitroge n measurement (mass/volume)Ordered By: Amarilis Jameson on 05-03-2022 Urea nitrogen [Mass/Vol] 20 mg/dL 9-23 [facility] Specific gravity Auto test s trip (U) [Rel density]Ordered By: Amarilis Jameson on 05-03-2022 Specific gravity (U) [Rel density] 1.015 1.001-1.030 [facility] Squamous epithelial cells de tection in urine sediment by light microscopyOrdered By: Amarilis Jameson on 05-03-2022 Epithelial cells.squamous LM Ql (Urine sed) 1-2 [HPF] 0-2 [facility] Troponin I.cardiac [Mass/vol ume] in Serum or Plasma by High sensitivity methodOrdered By: Amarilis Jameson on 05-03-2022 Troponin I.cardiac High sensitivity method [Mass/Vol] 4 pg/mL 0-20 [facility] Urine bacteria detection by automated methodOrdered By: Amarilis Jameson on 05-03-2022 Bacteria Auto Ql (U) None seen None Seen [facility] Urine clarity by refractomet ry automatedOrdered By: Amarilis Jameson on 05-03-2022 Clarity Refractometry automated (U) Clear Clear [facility] Urine glucose measurement by automated test strip (mass/volume)Ordered By: Amarilis Jameson on 05-03-2022 Glucose Auto test strip (U) [Mass/Vol] Normal mg/dL Normal [facility] Urine hemoglobin detection b y automated test stripOrdered By: Amarilis Jameson on 05-03-2022 Hemoglobin Auto test strip Ql (U) Negative Negative [facility] Urine leukocyte esterase det ection by automated test stripOrdered By: Amarilis Jameson on 05-03-2022 Leukocyte esterase Auto test strip Ql (U) 1+ Negative [facility] Urobilinogen Auto test strip (U) [Mass/Vol]Ordered By: Amarilis Jameson on 05-03-2022 Urobilinogen (U) [Mass/Vol] Normal mg/dL Normal [facility] pH Auto test strip (U)Ordere d By: Amarilis Jameson on 05-03-2022 pH (U) 6.0 [pH] 5.0-9.0 [facility] CNPNon 04-29-2022 CNPN Telephone (SPFLMN) -------- MARY JIMENEZ ([id number]) 1960 M Date Time Provider Department 04/29/22 GUILLAUME BHANDARI [facility] During your visit today, we recorded the following information about you: Anni Douglas RN 04/29/2022 3:31 PM Signed Left message on voicemail for patient to call office back regarding Pre-Procedure Information for spine procedure on 05/13/2022 at [facility]. Heena Andino Perpetual Inventory Clerk 04/29/2022 4:07 PM Signed pt returning RN call per message below. Anni Douglas RN 04/30/2022 8:16 AM Signed Phoned patient and spoke with patient to confirm appointment for Mary Jimenez for spine procedure on 05/13/2022. Patient notified that [place] will call patient the night before with the time to arrive for injection. Patient verbalized understanding of the following: -Provided education on spine procedure and answered questions related to spine injection procedure. -Studio Sales Associate is needed to drive patient home. Patient's sister will wait until procedure is completed and then drive him home. -NPO 6 hours prior to appointment, ok to take morning medications with sip of water. -Not to take any pain medications the day of injection to see how well injection works. -Do not take any NSAIDs/anti-inflammatori es (mobic, ibuprofen, advil, aleve, etc) the day of procedure for all lumbar, hip, and sacroiliac joint procedures. Hold NSAIDs for 1 day prior to procedure for cervical cases. Allergies reviewed: Yes Allergy to IV contrast dye or steroids: No and is not allergic to shellfish either Taking any antiplatelet/anticoagula nt (blood thinners): Yes Plavix Notified patient to reach out to prescribing physician to see if ok to hold medication for 7 days prior to injection. Patient will notify RN with physician's response. Taking aspirin 81mg: No Any open wounds/sores?: No Taking Antibiotics?: No Patient given number [phone], spine injections schedulers, if there is any need to reschedule/ change appointment during normal business hours. Active MyChart users were informed to read RunMy[employer] procedure instructions prior to appointment. AMBULATORY PATIENT EDUCATION TOPIC: SPINE INJECTION PROCEDURE, PRE-INJECTION AND POST- INJECTION INSTRUCTIONS READINESS TO LEARN COGNITIVE ABILITY: ALERT AND ORIENTED MOTIVATION TO LEARN: Interested FAMILY SUPPORT: Unable to assess - Family not present INSTRUCTION PROVIDED TO: Patient PATIENT LEARNS BEST BY: INDIVIDUAL INSTRUCTION FACTORS AFFECTING LEARNING: None PHYSICAL LIMITATIONS AFFECTING LEARNING: None LEARNING RESPONSE METHOD OF INSTRUCTION: TEACH BACK AND INDIVIDUAL INSTRUCTION PATIENT / FAMILY RESPONSE: VERBALIZED UNDERSTANDING OF PRE AND POST INJECTION INSTRUCTIONS Allergies As of Date: 04/29/2022 Noted Allergy Reaction PENICILLINS 06/07/2014 10 - Anaphylaxis LATEX 09/04/2016 2 - Rash Date Reviewed: 04/21/2022 Reviewed by: Alise Hawkins Ma - Fully Assessed Reason for Visit: Preparations For Procedures [899] Prescriptions as of 04/30/2022 - methylPREDNISolone (MEDROL DOSE-PACK) 4 mg Dose-Pack As Instructed per package - ibuprofen (MOTRIN) 800 mg tablet Take 1 tablet by mouth every 8 hours as needed for pain. - QUEtiapine (SEROQUEL) 25 mg tablet TAKE ONE TABLET BY MOUTH EVERY NIGHT AT BEDTIME - lactobacillus combination no.4 3 billion cell cap Take 1 capsule by mouth once daily. - Pregabalin (LYRICA) 200 mg capsule Take 1 capsule by mouth three times daily for 90 days. - clopidogrel (PLAVIX) 75 mg tablet Take 1 tablet by mouth once daily. Please hold this medication until post op day 10 - telmisartan (MICARDIS) 80 mg tablet Take 80 mg by mouth once daily. - docusate sodium (COLACE) 100 mg capsule Take 1 capsule by mouth twice daily. - docosahexaenoic acid/epa (FISH OIL ORAL) Take 5 capsules by mouth once daily. - fremanezumab-vfrm (AJOVY SYRINGE SUBCUTANEOUS) Inject 250 mg/mL subcutaneously. every 28 days for migraines - CHROMIUM PICOLINATE ORAL Take 800 mcg by mouth once daily. - MAGNESIUM ORAL Take 400 mg by mouth once daily. - finasteride (PROSCAR) 5 mg tablet Take 5 mg by mouth daily at bedtime. - CALCIUM CARBONATE/VITAMIN D3 (CALCIUM 600 + D ORAL) Take 1 tablet by mouth once daily. - LACTOBACILLUS ACIDOPHILUS (PROBIOTIC ACIDOPHILUS ORAL) Take 1 capsule by mouth once daily. - doxepin capsule 10 mg Take 10 mg by mouth daily at bedtime. Takes 2 tabs at bedtime - dicyclomine (BENTYL) 10 mg capsule Take 20 mg by mouth as needed. 4 times daily as needed - eletriptan (RELPAX) 40 mg tablet Take 40 mg by mouth as needed. may repeat in 2 hours if necessary - atorvastatin (LIPITOR) 80 mg tablet Take 80 mg by mouth daily at bedtime. - DULoxetine (CYMBALTA) 30 mg capsule Take 1 capsule by mouth once daily. Take with 60 mg for 90 mg total dose. - baclofen (LIORESAL) 20 mg tablet Take 20 mg (more content not included)... Normal [facility] 04-25-2022 [facility] Telephone (SPNMMN) -------- MARY JIMENEZ ([id number]) 1960 Date Time Provider Department 04/25/22 GUILLAUME BHANDARI SPNMMN During your visit today, we recorded the following information about you: Allergies As of Date: 04/25/2022 Noted Allergy Reaction PENICILLINS 06/07/2014 10 - Anaphylaxis LATEX 09/04/2016 2 - Rash Date Reviewed: 04/21/2022 Reviewed by: Alise Hawkins Ma - Fully Assessed Reason for Visit: Preparations For Procedures [899] Prescriptions as of 04/25/2022 - methylPREDNISolone (MEDROL DOSE-PACK) 4 mg Dose-Pack As Instructed per package - ibuprofen (MOTRIN) 800 mg tablet Take 1 tablet by mouth every 8 hours as needed for pain. - QUEtiapine (SEROQUEL) 25 mg tablet TAKE ONE TABLET BY MOUTH EVERY NIGHT AT BEDTIME - lactobacillus combination no.4 3 billion cell cap Take 1 capsule by mouth once daily. - Pregabalin (LYRICA) 200 mg capsule Take 1 capsule by mouth three times daily for 90 days. - clopidogrel (PLAVIX) 75 mg tablet Take 1 tablet by mouth once daily. Please hold this medication until post op day 10 - telmisartan (MICARDIS) 80 mg tablet Take 80 mg by mouth once daily. - docusate sodium (COLACE) 100 mg capsule Take 1 capsule by mouth twice daily. - docosahexaenoic acid/epa (FISH OIL ORAL) Take 5 capsules by mouth once daily. - fremanezumab-vfrm (AJOVY SYRINGE SUBCUTANEOUS) Inject 250 mg/mL subcutaneously. every 28 days for migraines - CHROMIUM PICOLINATE ORAL Take 800 mcg by mouth once daily. - MAGNESIUM ORAL Take 400 mg by mouth once daily. - finasteride (PROSCAR) 5 mg tablet Take 5 mg by mouth daily at bedtime. - CALCIUM CARBONATE/VITAMIN D3 (CALCIUM 600 + D ORAL) Take 1 tablet by mouth once daily. - LACTOBACILLUS ACIDOPHILUS (PROBIOTIC ACIDOPHILUS ORAL) Take 1 capsule by mouth once daily. - doxepin capsule 10 mg Take 10 mg by mouth daily at bedtime. Takes 2 tabs at bedtime - dicyclomine (BENTYL) 10 mg capsule Take 20 mg by mouth as needed. 4 times daily as needed - eletriptan (RELPAX) 40 mg tablet Take 40 mg by mouth as needed. may repeat in 2 hours if necessary - atorvastatin (LIPITOR) 80 mg tablet Take 80 mg by mouth daily at bedtime. - DULoxetine (CYMBALTA) 30 mg capsule Take 1 capsule by mouth once daily. Take with 60 mg for 90 mg total dose. - baclofen (LIORESAL) 20 mg tablet Take 20 mg by mouth daily at bedtime. - furosemide (LASIX) 40 mg tablet Take 40 mg by mouth once daily. - doxazosin (CARDURA) 4 mg tablet Take 4 mg by mouth once daily. - metoprolol succinate XL, long acting, (TOPROL XL) 50 mg 24 hr tablet Take 50 mg by mouth once daily. - cyanocobalamin (VITAMIN B-12) 1,000 mcg tab Take 1,000 mcg by mouth once daily. - fluticasone (FLONASE) 50 mcg/actuation nasal spray Use 2 Sprays in each nostril twice daily. Problem List As Of Date 04/25/2022 Noted Resolved Headache(784.0) [R51] 07/18/2014 08/18/2021 Adjustment disorder with anxious mood [F43.22] 07/18/2014 Chronic daily headache [R51.9] 07/18/2014 08/18/2021 Intractable chronic migraine without aura [G43.*07/18/2014 Chronic back pain [M54.9, G89.29] 07/18/2014 08/18/2021 Chronic pain syndrome [G89.4] 07/18/2014 Opioid dependence (HCC) [F11.20] 07/18/2014 Medication overuse headache [G44.40] 07/18/2014 08/18/2021 Opiate dependence (HCC) [F11.20] 10/20/2014 08/18/2021 Pseudoarthrosis of lumbar spine [S32.009K] 12/08/2014 08/18/2021 Sacroiliitis (HCC) [M46.1] 10/17/2015 08/18/2021 Secondary hypertension [I15.9] 08/07/2021 08/07/2021 Primary hypertension [I10] 08/07/2021 Cerebrovascular accident (CVA) due to thrombosi*08/07/2021 Spondylolisthesis, lumbar region [M43.16] 08/16/2021 Status post lumbar spinal fusion [Z98.1] 08/17/2021 Mixed hyperlipidemia [E78.2] 08/18/2021 BPH (benign prostatic hyperplasia) [N40.0] 08/18/2021 GERD (gastroesophageal reflux disease) [K21.9] 08/18/2021 CKD (chronic kidney disease) stage 3, GFR 30-59*08/18/2021 Post-operative infection [T81.40XA] 09/12/2021 Obesity [E66.9] 09/12/2021 Delirium [R41.0] 09/15/2021 Back pain [M54.9] 11/21/2021 Low back pain [M54.50] 11/21/2021 Weakness of left lower extremity [R29.898] 11/27/2021 Sleep apnea [G47.30] 12/17/2021 Lumbar pseudoarthrosis [S32.009K] 12/31/2021 Obesity, Class II, BMI 35-39.9 [E66.9] 01/01/2022 Anemia [D64.9] 01/04/2022 Encounter Status:Closed by ANNI DOUGLAS on 04/25/22 [facility] -------- MARY JIMENEZ ([id number]) 1960 Date Time Provider Department 04/23/22 LOYDA STEELE [facility] During your visit today, we recorded the following information about you: Samantha Alonzo 04/23/2022 4:04 PM Signed Received POC from [employer] requesting signature via fax. Scanned into [employer]. Greta Nunez RN 04/24/2022 10:40 AM Signed Form signed and faxed to number requested. Faxed verification received. Allergies As of Date: 04/23/2022 Noted Allergy Reaction PENICILLINS 06/07/2014 10 - Anaphylaxis LATEX 09/04/2016 2 - Rash Date Reviewed: 04/21/2022 Reviewed by: Alise Ross Ma - Fully Assessed Reason for Visit: Forms [493] Cmt: POC from [facility] requesting signature Prescriptions as of 04/24/2022 - methylPREDNISolone (MEDROL DOSE-PACK) 4 mg Dose-Pack As Instructed per package - ibuprofen (MOTRIN) 800 mg tablet Take 1 tablet by mouth every 8 hours as needed for pain. - QUEtiapine (SEROQUEL) 25 mg tablet TAKE ONE TABLET BY MOUTH EVERY NIGHT AT BEDTIME - lactobacillus combination no.4 3 billion cell cap Take 1 capsule by mouth once daily. - Pregabalin (LYRICA) 200 mg capsule Take 1 capsule by mouth three times daily for 90 days. - clopidogrel (PLAVIX) 75 mg tablet Take 1 tablet by mouth once daily. Please hold this medication until post op day 10 - telmisartan (MICARDIS) 80 mg tablet Take 80 mg by mouth once daily. - docusate sodium (COLACE) 100 mg capsule Take 1 capsule by mouth twice daily. - docosahexaenoic acid/epa (FISH OIL ORAL) Take 5 capsules by mouth once daily. - fremanezumab-vfrm (AJOVY SYRINGE SUBCUTANEOUS) Inject 250 mg/mL subcutaneously. every 28 days for migraines - CHROMIUM PICOLINATE ORAL Take 800 mcg by mouth once daily. - MAGNESIUM ORAL Take 400 mg by mouth once daily. - finasteride (PROSCAR) 5 mg tablet Take 5 mg by mouth daily at bedtime. - CALCIUM CARBONATE/VITAMIN D3 (CALCIUM 600 + D ORAL) Take 1 tablet by mouth once daily. - LACTOBACILLUS ACIDOPHILUS (PROBIOTIC ACIDOPHILUS ORAL) Take 1 capsule by mouth once daily. - doxepin capsule 10 mg Take 10 mg by mouth daily at bedtime. Takes 2 tabs at bedtime - dicyclomine (BENTYL) 10 mg capsule Take 20 mg by mouth as needed. 4 times daily as needed - eletriptan (RELPAX) 40 mg tablet Take 40 mg by mouth as needed. may repeat in 2 hours if necessary - atorvastatin (LIPITOR) 80 mg tablet Take 80 mg by mouth daily at bedtime. - DULoxetine (CYMBALTA) 30 mg capsule Take 1 capsule by mouth once daily. Take with 60 mg for 90 mg total dose. - baclofen (LIORESAL) 20 mg tablet Take 20 mg by mouth daily at bedtime. - furosemide (LASIX) 40 mg tablet Take 40 mg by mouth once daily. - doxazosin (CARDURA) 4 mg tablet Take 4 mg by mouth once daily. - metoprolol succinate XL, long acting, (TOPROL XL) 50 mg 24 hr tablet Take 50 mg by mouth once daily. - cyanocobalamin (VITAMIN B-12) 1,000 mcg tab Take 1,000 mcg by mouth once daily. - fluticasone (FLONASE) 50 mcg/actuation nasal spray Use 2 Sprays in each nostril twice daily. Problem List As Of Date 04/23/2022 Noted Resolved Headache(784.0) [R51] 07/18/2014 08/18/2021 Adjustment disorder with anxious mood [F43.22] 07/18/2014 Chronic daily headache [R51.9] 07/18/2014 08/18/2021 Intractable chronic migraine without aura [G43.*07/18/2014 Chronic back pain [M54.9, G89.29] 07/18/2014 08/18/2021 Chronic pain syndrome [G89.4] 07/18/2014 Opioid dependence (HCC) [F11.20] 07/18/2014 Medication overuse headache [G44.40] 07/18/2014 08/18/2021 Opiate dependence (HCC) [F11.20] 10/20/2014 08/18/2021 Pseudoarthrosis of lumbar spine [S32.009K] 12/08/2014 08/18/2021 Sacroiliitis (HCC) [M46.1] 10/17/2015 08/18/2021 Secondary hypertension [I15.9] 08/07/2021 08/07/2021 Primary hypertension [I10] 08/07/2021 Cerebrovascular accident (CVA) due to thrombosi*08/07/2021 Spondylolisthesis, lumbar region [M43.16] 08/16/2021 Status post lumbar spinal fusion [Z98.1] 08/17/2021 Mixed hyperlipidemia [E78.2] 08/18/2021 BPH (benign prostatic hyperplasia) [N40.0] 08/18/2021 GERD (gastroesophageal reflux disease) [K21.9] 08/18/2021 CKD (chronic kidney disease) stage 3, GFR 30-59*08/18/2021 Post-operative infection [T81.40XA] 09/12/2021 Obesity [E66.9] 09/12/2021 Delirium [R41.0] 09/15/2021 Back pain [M54.9] 11/21/2021 Low back pain [M54.50] 11/21/2021 Weakness of left lower extremity [R29.898] 11/27/2021 Sleep apnea [G47.30] 12/17/2021 Lumbar pseudoarthrosis [S32.009K] 12/31/2021 Obesity, Class II, BMI 35-39.9 [E66.9] 01/01/2022 Anemia [D64.9] 01/04/2022 Encounter Status:Closed by GRE[facility] Visit (NSFRVW ) -------- MARY JIMENEZ ([id number]) 1960 M Date Time Provider Department 04/21/22 8:20 AM LOYDA STEELE NSFRVW During your visit today, we recorded the following information about you: Temperature Pulse Blood pressure Weight 98.5 degrees 78/minute 147/74 122.5 kg Height 1.753 m Loyda Steele MD 04/22/2022 6:57 AM Signed SPINE SURGERY FOLLOW UP SERVICE DATE: 04/22/2022 SURGERY DATE: 12/31/21 Revision L4-pelvis instrumented fusion Mary Jimenez is seen for 3 month post operative follow up. Since last time I saw the patient reports that his pain has been alternating to the legs. It seems that the pain is better controlled. No issues the incision. No new symptoms. ANTIPLATELET OR ANTICOAGULATION STATUS: No Patient Entered Questionnaires Spine Questions 02/07/2022 04/09/2022 04/20/2022 Pain Location: Leg Lower back Lower back Pain Duration: - More than 5 years - Pain over last 6 months: - Every day or nearly every day in the past 6 months - Symptoms from neck/cervical spine: No No No Employment Status: - Disabled for reasons other than back pain - Involved in law suit/legal claim: - - - Neck Questionnaires 10/02/2021 Benzel Modified SCARLETT Score Incomplete PROMIS Score Percentiles Physical Health 12/04/2021 01/14/2022 04/09/2022 Physical Function Percentile 73 0 0 Sleep Percentile 50 2 0 Fatigue Percentile 98 79 0 Pain Interference Percentile 0 0 0 PROMIS SOCIAL ROLE SCORE 12/04/2021 01/14/2022 04/09/2022 Social Role Satisfaction Percentile 1 1 2 PROMIS Global Health Scale 12/04/2021 02/25/2022 03/30/2022 Physical Health Percentile 7 7 1 Mental Health Percentile 3 3 3 Percentiles provide an indication of how the patient's score ranks in relation to the general population. Higher percentile rankings indicate better function/quality of life. 50th percentile is the average of the general population and indicates half of respondents had a worse score. Depression Screening: PHQ-9 01/14/2022 02/07/2022 04/09/2022 Score 10 10 21 PHQ-9 Self-harm Question 01/14/2022 02/07/2022 04/09/2022 Thoughts that you would be better off , or of hurting yourself in some way 0 0 0 PHQ-9 Self-Harm (Item 9) response options: 0 Not at all 1 Several days 2 More than half the days 3 Nearly every day PHQ-9 Levels: 0-4 No to mild depression 5-9 Mild depression 10-14 Moderate depression 15-19 Moderately severe depression 20-27 Severe depression PHYSICAL EXAM: BP 147/74 (BP Site: Right Arm, BP Position: Supine, BP Cuff Size: Regular Adult) Pulse 78 Temp 36.9 ?C (98.5 ?F) (Temporal) Ht 175.3 cm (5' 9 ) Wt 122.5 kg (270 lb) BMI 39.87 kg/m? Oriented x3 PERRL FS Motor: UE D 5/5, B 5/5, T 5/5, G 5/5, HI 5/5 LE HF 5/5, KE 5/5, DF 5/5, PF 5/5, EHL 5/5 Incision C/D/I DATA REVIEW No additional images reviewed today ASSESSMENT/PLAN (M54.16) Radiculopathy, lumbar region (primary encounter diagnosis) Incision healed Medrol Dosepak ordered Plan for caudal injection by Dr. Hernandez Follow up: 2 months SIGNATURE: Loyda Steele MD PATIENT NAME: Mary Jimenez DATE: April 22, 2022 TIME: 6:55 AM PAGER: Referring Provider: LOYDA STEELE [[id number]] Allergies As of Date: 04/21/2022 Noted Allergy Reaction PENICILLINS 06/07/2014 10 - Anaphylaxis LATEX 09/04/2016 2 - Rash Date Reviewed: 04/21/2022 Reviewed by: Alise Hawkins Ma - Fully Assessed Reason for Visit: Established Patient [175] Cmt: Sx: 12/31/2021; lumbar Primary Visit Diagnosis:Radiculopathy, lumbar region [M54.16] Order(s):methylPREDNISol one (MEDROL DOSE-PACK) 4 mg Dose-PackAs Instructed per packageDisp: 21 tabletRfl: 0 Prescriptions as of 04/22/2022 - methylPREDNISolone (MEDROL DOSE-PACK) 4 mg Dose-Pack As Instructed per package - ibuprofen (MOTRIN) 800 mg tablet Take 1 tablet by mouth every 8 hours as needed for pain. - QUEtiapine (SEROQUEL) 25 mg tablet TAKE ONE TABLET BY MOUTH EVERY NIGHT AT BEDTIME - lactobacillus combination no.4 3 billion cell cap Take 1 capsule by mouth once daily. - Pregabalin (LYRICA) 200 mg capsule Take 1 capsule by mouth three times daily for 90 days. - clopidogrel (PLAVIX) 75 mg tablet Take 1 tablet by mouth once daily. Please hold this medication until post op day 10 - telmisartan (MICARDIS) 80 mg tablet Take 80 mg by mouth once daily. - docusate sodium (COLACE) 100 mg capsule Take 1 capsule by mouth twice daily. - docosahexaenoic acid/epa (FISH OIL ORAL) Take 5 capsules by mouth once daily. - fremanezumab-vfrm (AJOVY SYRINGE SUBCUTANEOUS) Inject 250 mg/mL subcutaneously. every 28 days for migraines - CHROMIUM PICOLINATE ORAL Take 800 mcg by mouth once daily. - MAGNESIUM ORAL Take 400 mg by mouth once daily. - finasteride (PROSCAR) 5 mg tablet Take 5 mg by mouth daily at bedtime. - CALCIUM CARBON (more content not included)... [facility]NEAD[facility] -------- MARY JIMENEZ ([id number]) 1960 M Date Time Provider Department 04/17/22 LOYDA STEELE During your visit today, we recorded the following information about you: Gale De León 04/17/2022 12:11 PM Signed Received call from nurse, calling on behalf of patient. She states that he wants to know if a outpatient PT order can be uploaded to his [employer]. He also was wondering if he can get a sooner appt than June to come in the office and discuss his medication. States he is off narcotics but is scare of taking ibuprofen and tylenol. Please return patients call to [phone]. Greta Nunez RN 04/17/2022 3:16 PM Signed Will forward for review. Christine Gutierrez PA-C 04/17/2022 3:43 PM Signed PT order placed. He can alternate Tylenol and ibuprofen as long as he follows dosing instructions on the bottle. His creatinine on his last BMP was normal so as long as he is taking NSAIDs within their normal limits he should be okay. I do not see a liver function test but if he is concerned about the Tylenol I can order one for him. Greta Nunez RN 04/21/2022 8:06 AM Signed Appointment today. Allergies As of Date: 04/17/2022 Noted Allergy Reaction PENICILLINS 06/07/2014 10 - Anaphylaxis LATEX 09/04/2016 2 - Rash Date Reviewed: 04/02/2022 Reviewed by: Shiela Ervin MA - Fully Assessed Reason for Visit: Patient Question [7317] Primary Visit Diagnosis:Lumbar pseudoarthrosis [S32.009K] Order(s):CONSULT TO PHYSICAL THERAPY [5447] Order #: [id number]: 1 FUTURE Prescriptions as of 04/21/2022 - ibuprofen (MOTRIN) 800 mg tablet Take 1 tablet by mouth every 8 hours as needed for pain. - QUEtiapine (SEROQUEL) 25 mg tablet TAKE ONE TABLET BY MOUTH EVERY NIGHT AT BEDTIME - lactobacillus combination no.4 3 billion cell cap Take 1 capsule by mouth once daily. - Pregabalin (LYRICA) 200 mg capsule Take 1 capsule by mouth three times daily for 90 days. - clopidogrel (PLAVIX) 75 mg tablet Take 1 tablet by mouth once daily. Please hold this medication until post op day 10 - telmisartan (MICARDIS) 80 mg tablet Take 80 mg by mouth once daily. - docusate sodium (COLACE) 100 mg capsule Take 1 capsule by mouth twice daily. - docosahexaenoic acid/epa (FISH OIL ORAL) Take 5 capsules by mouth once daily. - fremanezumab-vfrm (AJOVY SYRINGE SUBCUTANEOUS) Inject 250 mg/mL subcutaneously. every 28 days for migraines - CHROMIUM PICOLINATE ORAL Take 800 mcg by mouth once daily. - MAGNESIUM ORAL Take 400 mg by mouth once daily. - finasteride (PROSCAR) 5 mg tablet Take 5 mg by mouth daily at bedtime. - CALCIUM CARBONATE/VITAMIN D3 (CALCIUM 600 + D ORAL) Take 1 tablet by mouth once daily. - LACTOBACILLUS ACIDOPHILUS (PROBIOTIC ACIDOPHILUS ORAL) Take 1 capsule by mouth once daily. - doxepin capsule 10 mg Take 10 mg by mouth daily at bedtime. Takes 2 tabs at bedtime - dicyclomine (BENTYL) 10 mg capsule Take 20 mg by mouth as needed. 4 times daily as needed - eletriptan (RELPAX) 40 mg tablet Take 40 mg by mouth as needed. may repeat in 2 hours if necessary - atorvastatin (LIPITOR) 80 mg tablet Take 80 mg by mouth daily at bedtime. - DULoxetine (CYMBALTA) 30 mg capsule Take 1 capsule by mouth once daily. Take with 60 mg for 90 mg total dose. - baclofen (LIORESAL) 20 mg tablet Take 20 mg by mouth daily at bedtime. - furosemide (LASIX) 40 mg tablet Take 40 mg by mouth once daily. - doxazosin (CARDURA) 4 mg tablet Take 4 mg by mouth once daily. - metoprolol succinate XL, long acting, (TOPROL XL) 50 mg 24 hr tablet Take 50 mg by mouth once daily. - cyanocobalamin (VITAMIN B-12) 1,000 mcg tab Take 1,000 mcg by mouth once daily. - fluticasone (FLONASE) 50 mcg/actuation nasal spray Use 2 Sprays in each nostril twice daily. Problem List As Of Date 04/17/2022 Noted Resolved Headache(784.0) [R51] 07/18/2014 08/18/2021 Adjustment disorder with anxious mood [F43.22] 07/18/2014 Chronic daily headache [R51.9] 07/18/2014 08/18/2021 Intractable chronic migraine without aura [G43.*07/18/2014 Chronic back pain [M54.9, G89.29] 07/18/2014 08/18/2021 Chronic pain syndrome [G89.4] 07/18/2014 Opioid dependence (HCC) [F11.20] 07/18/2014 Medication overuse headache [G44.40] 07/18/2014 08/18/2021 Opiate dependence (HCC) [F11.20] 10/20/2014 08/18/2021 Pseudoarthrosis of lumbar spine [S32.009K] 12/08/2014 08/18/2021 Sacroiliitis (HCC) [M46.1] 10/17/2015 08/18/2021 Secondary hypertension [I15.9] 08/07/2021 08/07/2021 Primary hypertension [I10] 08/07/2021 Cerebrovascular accident (CVA) due to thrombosi*08/07/2021 Spondylolisthesis, lumbar region [M43.16] 08/16/2021 Status post lumbar spinal fusion [Z98.1] 08/17/2021 Mixed hyperlipidemia [E78.2] 08/18/2021 BPH (benign prostatic hyperplasia) [N40.0] 08/18/2021 GERD (gastroesophageal reflux disease) [K21.9] 08/18/2021 CKD (more content not included)... Normal [facility] CNOVon 04-09-2022 CNOV Office Visit (NSFRVW ) -------- MARY JIMENEZ ([id number]) 1960 M Date Time Provider Department 04/09/22 1:00 PM EFFIE BELTRAN NSFRVW During your visit today, we recorded the following information about you: Temperature 98.8 degrees Effie Beltran PA-C 04/09/2022 2:14 PM Signed SPINE SURGERY ESTABLISHED DATE OF SERVICE: 04/09/2022 DATE OF LAST VISIT: 04/02/2022 SUBJECTIVE: HPI:Mary Jimenez is a 61 year old male presenting with sister. He is doing well today. Continues to have right leg pain. Has been trying to only take 2 norco per day. He wants to start therapy to see if it will help his leg, but he still has home care coming for dressing changes. He states his wound vac got ripped off on Thursday when he got off of the couch. His sister notes the inversion table was out at home; he states he drug it out himself. He is agreeable to injection, but states he needs it with sedation. He attempted before without sedation and nearly jumped off the table. PAIN EVALUATION 04/09/2022 1252 Pain Level: 3 while laying Pain Location: Back-Lower Description: Aching;Sore Duration Amount of Time: 1 Duration Units: Weeks Frequency: Continuous Intervention/Comfort measure: Medication AMBULATORY STATUS: Impaired Community Distances ANTIPLATELET OR ANTICOAGULATION STATUS: Yes plavix PREVIOUS CONSERVATIVE TREATMENTS: Opioids Muscle relaxer Steroids lyrica REVIEW OF SYSTEMS: GENERAL: No weight loss or malaise MUSCULOSKELETAL: see HPI NEURO: No history of headaches, syncope, paralysis, seizures or tremors MEDICATIONS: QUEtiapine (SEROQUEL) 25 mg tablet TAKE ONE TABLET BY MOUTH EVERY NIGHT AT BEDTIME lactobacillus combination no.4 3 billion cell cap Take 1 capsule by mouth once daily. Pregabalin (LYRICA) 200 mg capsule Take 1 capsule by mouth three times daily for 90 days. clopidogrel (PLAVIX) 75 mg tablet Take 1 tablet by mouth once daily. Please hold this medication until post op day 10 telmisartan (MICARDIS) 80 mg tablet Take 80 mg by mouth once daily. docusate sodium (COLACE) 100 mg capsule Take 1 capsule by mouth twice daily. docosahexaenoic acid/epa (FISH OIL ORAL) Take 5 capsules by mouth once daily. fremanezumab-vfrm (AJOVY SYRINGE SUBCUTANEOUS) Inject 250 mg/mL subcutaneously. every 28 days for migraines CHROMIUM PICOLINATE ORAL Take 800 mcg by mouth once daily. MAGNESIUM ORAL Take 400 mg by mouth once daily. finasteride (PROSCAR) 5 mg tablet Take 5 mg by mouth daily at bedtime. CALCIUM CARBONATE/VITAMIN D3 (CALCIUM 600 + D ORAL) Take 1 tablet by mouth once daily. LACTOBACILLUS ACIDOPHILUS (PROBIOTIC ACIDOPHILUS ORAL) Take 1 capsule by mouth once daily. doxepin capsule 10 mg Take 10 mg by mouth daily at bedtime. Takes 2 tabs at bedtime dicyclomine (BENTYL) 10 mg capsule Take 20 mg by mouth as needed. 4 times daily as needed eletriptan (RELPAX) 40 mg tablet Take 40 mg by mouth as needed. may repeat in 2 hours if necessary atorvastatin (LIPITOR) 80 mg tablet Take 80 mg by mouth daily at bedtime. DULoxetine (CYMBALTA) 30 mg capsule Take 1 capsule by mouth once daily. Take with 60 mg for 90 mg total dose. (Patient taking differently: Take 30 mg by mouth three times daily. Takes 30 mg three times daily per patient) baclofen (LIORESAL) 20 mg tablet Take 20 mg by mouth daily at bedtime. furosemide (LASIX) 40 mg tablet Take 40 mg by mouth once daily. doxazosin (CARDURA) 4 mg tablet Take 4 mg by mouth once daily. metoprolol succinate XL, long acting, (TOPROL XL) 50 mg 24 hr tablet Take 50 mg by mouth once daily. cyanocobalamin (VITAMIN B-12) 1,000 mcg tab Take 1,000 mcg by mouth once daily. fluticasone (FLONASE) 50 mcg/actuation nasal spray Use 2 Sprays in each nostril twice daily. Patient Entered Questionnaires Spine Questions 01/26/2022 02/07/2022 04/09/2022 Pain Location: Lower back Leg Lower back Pain Duration: - - More than 5 years Pain over last 6 months: - - Every day or nearly every day in the past 6 months Symptoms from neck/cervical spine: No No No Employment Status: - - Disabled for reasons other than back pain Involved in law suit/legal claim: - - - Neck Questionnaires 10/02/2021 Benzel Modified SCARLETT Score Incomplete PROMIS Score Percentiles Physical Health 12/04/2021 01/14/2022 04/09/2022 Physical Function Percentile 73 0 0 Sleep Percentile 50 2 0 Fatigue Percentile 98 79 0 Pain Interference Percentile 0 0 0 PROMIS SOCIAL ROLE SCORE 12/04/2021 01/14/2022 04/09/2022 Social Role Satisfaction Percentile 1 1 2 PROMIS Global Health Scale 12/04/2021 02/25/2022 03/30/2022 Physical Health Percentile 7 7 1 Mental Health Percentile 3 3 3 Percentiles provide an indication of how the patient's score ranks in relation to the general population. Higher percentile rankings indicate better function/quality of life. 50th percentile is (more content not included)... [facility] -------- MARY JIMENEZ ([id number]) 1960 M Date Time Provider Department 04/02/22 3:20 PM LOYDA STEELE NSFRVW During your visit today, we recorded the following information about you: Pulse Blood pressure Height 78/minute 125/83 1.753 m Amna Cornelius MD 04/08/2022 3:34 PM Signed SPINE SURGERY FOLLOW UP SERVICE DATE: 04/02/2022 SURGERY DATE: 12/31/21 Revision L4-pelvis instrumented fusion Mary Jimenez is seen for 3 month post operative follow up. Has had a small amount of drainage from his incision and an area of granulation tissue. No fevers or chills. Complains of continued back pain but has been working in his garden. PAIN EVALUATION 04/02/2022 1502 Pain Level: 8 Pain Location: Back-Lower Description: Shooting Duration Amount of Time: 8 Duration Units: Months Frequency: Continuous Intervention/Comfort measure: Reposition Pain Radiation: Pain does not radiate Aggravating Factors: Walking Alleviating Factors: Lying supine Pain Ratio: Pain in the back is greater than in the leg ANTIPLATELET OR ANTICOAGULATION STATUS: No Patient Entered Questionnaires Spine Questions 01/14/2022 01/26/2022 02/07/2022 Pain Location: Lower back Lower back Leg Pain Duration: - - - Pain over last 6 months: - - - Symptoms from neck/cervical spine: No No No Employment Status: Disabled for reasons other than back pain - - Involved in law suit/legal claim: - - - Neck Questionnaires 10/02/2021 Benzel Modified SCARLETT Score Incomplete PROMIS Score Percentiles Physical Health 10/02/2021 12/04/2021 01/14/2022 Physical Function Percentile 0 73 0 Sleep Percentile 2 50 2 Fatigue Percentile 4 98 79 Pain Interference Percentile 0 0 0 PROMIS SOCIAL ROLE SCORE 10/02/2021 12/04/2021 01/14/2022 Social Role Satisfaction Percentile 1 1 1 PROMIS Global Health Scale 12/04/2021 02/25/2022 03/30/2022 Physical Health Percentile 7 7 1 Mental Health Percentile 3 3 3 Percentiles provide an indication of how the patient's score ranks in relation to the general population. Higher percentile rankings indicate better function/quality of life. 50th percentile is the average of the general population and indicates half of respondents had a worse score. Depression Screening: PHQ-9 12/04/2021 01/14/2022 02/07/2022 Score 9 10 10 PHQ-9 Self-harm Question 12/04/2021 01/14/2022 02/07/2022 Thoughts that you would be better off , or of hurting yourself in some way 0 0 0 PHQ-9 Self-Harm (Item 9) response options: 0 Not at all 1 Several days 2 More than half the days 3 Nearly every day PHQ-9 Levels: 0-4 No to mild depression 5-9 Mild depression 10-14 Moderate depression 15-19 Moderately severe depression 20-27 Severe depression PHYSICAL EXAM: BP 125/83 Pulse 78 Ht 175.3 cm (5' 9 ) BMI 39.80 kg/m? GENERAL APPEARANCE: Well nourished, well developed, and no apparent distress. NEURO PSYCH: Patient oriented to person, place, and time. Mood pleasant. Benign affect. MUSCULOSKELETAL VISUAL INSPECTION CERVICAL: WNL THORACIC: WNL LUMBAR: WNL MOTOR: 5/5 in all muscle groups. SENSORY: Normal sensory exam GAIT: Normal. REFLEXES: +2 to bilateral U/L extremities. PROPRIOCEPTION: Normal. LONG TRACT SIGNS: No clonus. No Hoffmans. STRAIGHT LEG TEST: Not Tested. L'HERMITTES SIGN: Not tested. SPURLING'S TEST: Not tested. DATA REVIEW [facility] records independently reviewed ASSESSMENT/PLAN L5/S1 psuedoarthrosis Mary Jimenez will continue with medical management of his/her condition. Granulation tissue excised and Prevena vac applied Follow up: 1 week for wound check Pain management for RAKESH consult I reviewed the history and physical obtained and documented by the resident and I personally participated in the maldonado components. SIGNATURE: Loyda Steele MD PATIENT NAME: Mary Jimenez DATE: April 02, 2022 TIME: 4:04 PM PAGER: Referring Provider: JOSE RAY [[id number]] Allergies As of Date: 04/02/2022 Noted Allergy Reaction PENICILLINS 06/07/2014 10 - Anaphylaxis LATEX 09/04/2016 2 - Rash Date Reviewed: 04/02/2022 Reviewed by: Shiela Ervin MA - Fully Assessed Reason for Visit: Follow Up [171] Primary Visit Diagnosis:Lumbar radiculopathy [M54.16] Prescriptions as of 04/08/2022 - QUEtiapine (SEROQUEL) 25 mg tablet TAKE ONE TABLET BY MOUTH EVERY NIGHT AT BEDTIME - HYDROcodone-acetaminophe n (NORCO) 5-325 mg per tablet Take 1 tablet by mouth every 6 hours as needed for pain for up to 7 days. - lactobacillus combination no.4 3 billion cell cap Take 1 capsule by mouth once daily. - Pregabalin (LYRICA) 200 mg capsule Take 1 capsule by mouth three times daily for 90 days. - clopidogrel (PLAVIX) 75 mg tablet Take 1 tablet by mouth once daily. Please hold this medication until post op day 10 - telmisartan (MICARDIS) 80 mg tablet Take 80 (more content not included)... [facility] 04-01-2022 [facility] Telephone (ESA) -------- MARY JIMENEZ ([id number]) 1960 M Date Time Provider Department 04/01/22 CHRISTINE GUTIERREZ During your visit today, we recorded the following information about you: Christine Gutierrez PA-C 04/01/2022 12:35 PM Signed I called Alfredo on 04/01/2022 at 12:32 PM. Left a voicemail informing him that I have discussed overall plan of care going forward with Dr. Steele. Will send [employer] message detailing plan. Advised to respond to message or call back with questions. Allergies As of Date: 04/01/2022 Noted Allergy Reaction PENICILLINS 06/07/2014 10 - Anaphylaxis LATEX 09/04/2016 2 - Rash Date Reviewed: 02/27/2022 Reviewed by: hRonda Hay MA - Fully Assessed Reason for Visit: Wound Care [485] Primary Visit Diagnosis:Spinal stenosis of lumbar region with neurogenic claudication [M48.062] Order(s):SPINE INTERVENTION PROCEDURE [[id number]] Order #: [id number] Prescriptions as of 04/01/2022 - QUEtiapine (SEROQUEL) 25 mg tablet Take 1 tablet by mouth daily at bedtime. - lactobacillus combination no.4 3 billion cell cap Take 1 capsule by mouth once daily. - Pregabalin (LYRICA) 200 mg capsule Take 1 capsule by mouth three times daily for 90 days. - clopidogrel (PLAVIX) 75 mg tablet Take 1 tablet by mouth once daily. Please hold this medication until post op day 10 - telmisartan (MICARDIS) 80 mg tablet Take 80 mg by mouth once daily. - docusate sodium (COLACE) 100 mg capsule Take 1 capsule by mouth twice daily. - docosahexaenoic acid/epa (FISH OIL ORAL) Take 5 capsules by mouth once daily. - fremanezumab-vfrm (AJOVY SYRINGE SUBCUTANEOUS) Inject 250 mg/mL subcutaneously. every 28 days for migraines - CHROMIUM PICOLINATE ORAL Take 800 mcg by mouth once daily. - MAGNESIUM ORAL Take 400 mg by mouth once daily. - finasteride (PROSCAR) 5 mg tablet Take 5 mg by mouth daily at bedtime. - CALCIUM CARBONATE/VITAMIN D3 (CALCIUM 600 + D ORAL) Take 1 tablet by mouth once daily. - LACTOBACILLUS ACIDOPHILUS (PROBIOTIC ACIDOPHILUS ORAL) Take 1 capsule by mouth once daily. - doxepin capsule 10 mg Take 10 mg by mouth daily at bedtime. Takes 2 tabs at bedtime - dicyclomine (BENTYL) 10 mg capsule Take 20 mg by mouth as needed. 4 times daily as needed - eletriptan (RELPAX) 40 mg tablet Take 40 mg by mouth as needed. may repeat in 2 hours if necessary - atorvastatin (LIPITOR) 80 mg tablet Take 80 mg by mouth daily at bedtime. - DULoxetine (CYMBALTA) 30 mg capsule Take 1 capsule by mouth once daily. Take with 60 mg for 90 mg total dose. - baclofen (LIORESAL) 20 mg tablet Take 20 mg by mouth daily at bedtime. - furosemide (LASIX) 40 mg tablet Take 40 mg by mouth once daily. - doxazosin (CARDURA) 4 mg tablet Take 4 mg by mouth once daily. - metoprolol succinate XL, long acting, (TOPROL XL) 50 mg 24 hr tablet Take 50 mg by mouth once daily. - cyanocobalamin (VITAMIN B-12) 1,000 mcg tab Take 1,000 mcg by mouth once daily. - fluticasone (FLONASE) 50 mcg/actuation nasal spray Use 2 Sprays in each nostril twice daily. Problem List As Of Date 04/01/2022 Noted Resolved Headache(784.0) [R51] 07/18/2014 08/18/2021 Adjustment disorder with anxious mood [F43.22] 07/18/2014 Chronic daily headache [R51.9] 07/18/2014 08/18/2021 Intractable chronic migraine without aura [G43.*07/18/2014 Chronic back pain [M54.9, G89.29] 07/18/2014 08/18/2021 Chronic pain syndrome [G89.4] 07/18/2014 Opioid dependence (HCC) [F11.20] 07/18/2014 Medication overuse headache [G44.40] 07/18/2014 08/18/2021 Opiate dependence (HCC) [F11.20] 10/20/2014 08/18/2021 Pseudoarthrosis of lumbar spine [S32.009K] 12/08/2014 08/18/2021 Sacroiliitis (HCC) [M46.1] 10/17/2015 08/18/2021 Secondary hypertension [I15.9] 08/07/2021 08/07/2021 Primary hypertension [I10] 08/07/2021 Cerebrovascular accident (CVA) due to thrombosi*08/07/2021 Spondylolisthesis, lumbar region [M43.16] 08/16/2021 Status post lumbar spinal fusion [Z98.1] 08/17/2021 Mixed hyperlipidemia [E78.2] 08/18/2021 BPH (benign prostatic hyperplasia) [N40.0] 08/18/2021 GERD (gastroesophageal reflux disease) [K21.9] 08/18/2021 CKD (chronic kidney disease) stage 3, GFR 30-59*08/18/2021 Post-operative infection [T81.40XA] 09/12/2021 Obesity [E66.9] 09/12/2021 Delirium [R41.0] 09/15/2021 Back pain [M54.9] 11/21/2021 Low back pain [M54.50] 11/21/2021 Weakness of left lower extremity [R29.898] 11/27/2021 Sleep apnea [G47.30] 12/17/2021 Lumbar pseudoarthrosis [S32.009K] 12/31/2021 Obesity, Class II, BMI 35-39.9 [E66.9] 01/01/2022 Anemia [D64.9] 01/04/2022 Encounter Status:Closed by CHRISTINE GUTIERREZ on 04/01/22 [facility] 03-21-2022 [facility] Telephone (NEADFV) -------- MARY JIMENEZ ([id number]) 1960 M Date Time Provider Department 03/21/22 LOYDA STEELE NESANIAFV During your visit today, we recorded the following information about you: Samantha Alonzo 03/21/2022 10:[address] Lumbar report dated 03/21/22 from [facility] today. Scanned into [employer] via on-base. Gale De León 03/21/2022 11:46 AM Signed Patient called to let office know that he had his CT done today and needs an appt to go over it. He also wants a refill for his [place]. Allergies As of Date: 03/21/2022 Noted Allergy Reaction PENICILLINS 06/07/2014 10 - Anaphylaxis LATEX 09/04/2016 2 - Rash Date Reviewed: 02/27/2022 Reviewed by: Rhonda Hay MA - Fully Assessed Reason for Visit: Received Outside Medical Records [3576] Visit Diagnosis:Lumbar pseudoarthrosis [S32.009K] Order(s):HYDROcodone-lobo taminophen (NORCO) 5-325 mg per tabletTake 1 tablet by mouth every 6 hours as needed for pain for up to 7 days.Disp: 28 tabletRfl: 0 Prescriptions as of 03/21/2022 - HYDROcodone-acetaminophe n (NORCO) 5-325 mg per tablet Take 1 tablet by mouth every 6 hours as needed for pain for up to 7 days. - QUEtiapine (SEROQUEL) 25 mg tablet Take 1 tablet by mouth daily at bedtime. - lactobacillus combination no.4 3 billion cell cap Take 1 capsule by mouth once daily. - Pregabalin (LYRICA) 200 mg capsule Take 1 capsule by mouth three times daily for 90 days. - clopidogrel (PLAVIX) 75 mg tablet Take 1 tablet by mouth once daily. Please hold this medication until post op day 10 - telmisartan (MICARDIS) 80 mg tablet Take 80 mg by mouth once daily. - docusate sodium (COLACE) 100 mg capsule Take 1 capsule by mouth twice daily. - docosahexaenoic acid/epa (FISH OIL ORAL) Take 5 capsules by mouth once daily. - fremanezumab-vfrm (AJOVY SYRINGE SUBCUTANEOUS) Inject 250 mg/mL subcutaneously. every 28 days for migraines - CHROMIUM PICOLINATE ORAL Take 800 mcg by mouth once daily. - MAGNESIUM ORAL Take 400 mg by mouth once daily. - finasteride (PROSCAR) 5 mg tablet Take 5 mg by mouth daily at bedtime. - CALCIUM CARBONATE/VITAMIN D3 (CALCIUM 600 + D ORAL) Take 1 tablet by mouth once daily. - LACTOBACILLUS ACIDOPHILUS (PROBIOTIC ACIDOPHILUS ORAL) Take 1 capsule by mouth once daily. - doxepin capsule 10 mg Take 10 mg by mouth daily at bedtime. Takes 2 tabs at bedtime - dicyclomine (BENTYL) 10 mg capsule Take 20 mg by mouth as needed. 4 times daily as needed - eletriptan (RELPAX) 40 mg tablet Take 40 mg by mouth as needed. may repeat in 2 hours if necessary - atorvastatin (LIPITOR) 80 mg tablet Take 80 mg by mouth daily at bedtime. - DULoxetine (CYMBALTA) 30 mg capsule Take 1 capsule by mouth once daily. Take with 60 mg for 90 mg total dose. - baclofen (LIORESAL) 20 mg tablet Take 20 mg by mouth daily at bedtime. - furosemide (LASIX) 40 mg tablet Take 40 mg by mouth once daily. - doxazosin (CARDURA) 4 mg tablet Take 4 mg by mouth once daily. - metoprolol succinate XL, long acting, (TOPROL XL) 50 mg 24 hr tablet Take 50 mg by mouth once daily. - cyanocobalamin (VITAMIN B-12) 1,000 mcg tab Take 1,000 mcg by mouth once daily. - fluticasone (FLONASE) 50 mcg/actuation nasal spray Use 2 Sprays in each nostril twice daily. Problem List As Of Date 03/21/2022 Noted Resolved Headache(784.0) [R51] 07/18/2014 08/18/2021 Adjustment disorder with anxious mood [F43.22] 07/18/2014 Chronic daily headache [R51.9] 07/18/2014 08/18/2021 Intractable chronic migraine without aura [G43.*07/18/2014 Chronic back pain [M54.9, G89.29] 07/18/2014 08/18/2021 Chronic pain syndrome [G89.4] 07/18/2014 Opioid dependence (HCC) [F11.20] 07/18/2014 Medication overuse headache [G44.40] 07/18/2014 08/18/2021 Opiate dependence (HCC) [F11.20] 10/20/2014 08/18/2021 Pseudoarthrosis of lumbar spine [S32.009K] 12/08/2014 08/18/2021 Sacroiliitis (HCC) [M46.1] 10/17/2015 08/18/2021 Secondary hypertension [I15.9] 08/07/2021 08/07/2021 Primary hypertension [I10] 08/07/2021 Cerebrovascular accident (CVA) due to thrombosi*08/07/2021 Spondylolisthesis, lumbar region [M43.16] 08/16/2021 Status post lumbar spinal fusion [Z98.1] 08/17/2021 Mixed hyperlipidemia [E78.2] 08/18/2021 BPH (benign prostatic hyperplasia) [N40.0] 08/18/2021 GERD (gastroesophageal reflux disease) [K21.9] 08/18/2021 CKD (chronic kidney disease) stage 3, GFR 30-59*08/18/2021 Post-operative infection [T81.40XA] 09/12/2021 Obesity [E66.9] 09/12/2021 Delirium [R41.0] 09/15/2021 Back pain [M54.9] 11/21/2021 Low back pain [M54.50] 11/21/2021 Weakness of left lower extremity [R29.898] 11/27/2021 Sleep apnea [G47.30] 12/17/2021 Lumbar pseudoarthrosis [S32.009K] 12/31/2021 Obesity, Class II, BMI 35-39.9 [E66.9] 01/01/2022 Anemia [D64.9] 01/04/2022 Prescriptions ordered this encounter Disp Refills Start End HYDROCODONE 5 MG-A (more content not included)... Normal [facility] 03-12-2022 CNPN Telephone (NEADFV) -------- MARY JIMENEZ ([id number]) 1960 M Date Time Provider Department 03/12/22 LOYDA STEELE During your visit today, we recorded the following information about you: Mercedtamra Blake Sec 03/12/2022 12:12 PM Signed Patient has an appointment today. He had a creatinine level done outside the clinic. The office were he had it done is closed. He said the level is 1.33. Greta Nunez RN 03/12/2022 12:27 PM Signed Noted. Allergies As of Date: 03/12/2022 Noted Allergy Reaction PENICILLINS 06/07/2014 10 - Anaphylaxis LATEX 09/04/2016 2 - Rash Date Reviewed: 02/27/2022 Reviewed by: Rhonda Hay MA - Fully Assessed Reason for Visit: creatinine level [Other] Prescriptions as of 03/12/2022 - QUEtiapine (SEROQUEL) 25 mg tablet Take 1 tablet by mouth daily at bedtime. - HYDROcodone-acetaminophe n (NORCO) 5-325 mg per tablet Take 1 tablet by mouth every 8 hours as needed for pain for up to 7 days. - lactobacillus combination no.4 3 billion cell cap Take 1 capsule by mouth once daily. - Pregabalin (LYRICA) 200 mg capsule Take 1 capsule by mouth three times daily for 90 days. - clopidogrel (PLAVIX) 75 mg tablet Take 1 tablet by mouth once daily. Please hold this medication until post op day 10 - telmisartan (MICARDIS) 80 mg tablet Take 80 mg by mouth once daily. - docusate sodium (COLACE) 100 mg capsule Take 1 capsule by mouth twice daily. - docosahexaenoic acid/epa (FISH OIL ORAL) Take 5 capsules by mouth once daily. - fremanezumab-vfrm (AJOVY SYRINGE SUBCUTANEOUS) Inject 250 mg/mL subcutaneously. every 28 days for migraines - CHROMIUM PICOLINATE ORAL Take 800 mcg by mouth once daily. - MAGNESIUM ORAL Take 400 mg by mouth once daily. - finasteride (PROSCAR) 5 mg tablet Take 5 mg by mouth daily at bedtime. - CALCIUM CARBONATE/VITAMIN D3 (CALCIUM 600 + D ORAL) Take 1 tablet by mouth once daily. - LACTOBACILLUS ACIDOPHILUS (PROBIOTIC ACIDOPHILUS ORAL) Take 1 capsule by mouth once daily. - doxepin capsule 10 mg Take 10 mg by mouth daily at bedtime. Takes 2 tabs at bedtime - dicyclomine (BENTYL) 10 mg capsule Take 20 mg by mouth as needed. 4 times daily as needed - eletriptan (RELPAX) 40 mg tablet Take 40 mg by mouth as needed. may repeat in 2 hours if necessary - atorvastatin (LIPITOR) 80 mg tablet Take 80 mg by mouth daily at bedtime. - DULoxetine (CYMBALTA) 30 mg capsule Take 1 capsule by mouth once daily. Take with 60 mg for 90 mg total dose. - baclofen (LIORESAL) 20 mg tablet Take 20 mg by mouth daily at bedtime. - furosemide (LASIX) 40 mg tablet Take 40 mg by mouth once daily. - doxazosin (CARDURA) 4 mg tablet Take 4 mg by mouth once daily. - metoprolol succinate XL, long acting, (TOPROL XL) 50 mg 24 hr tablet Take 50 mg by mouth once daily. - cyanocobalamin (VITAMIN B-12) 1,000 mcg tab Take 1,000 mcg by mouth once daily. - fluticasone (FLONASE) 50 mcg/actuation nasal spray Use 2 Sprays in each nostril twice daily. Problem List As Of Date 03/12/2022 Noted Resolved Headache(784.0) [R51] 07/18/2014 08/18/2021 Adjustment disorder with anxious mood [F43.22] 07/18/2014 Chronic daily headache [R51.9] 07/18/2014 08/18/2021 Intractable chronic migraine without aura [G43.*07/18/2014 Chronic back pain [M54.9, G89.29] 07/18/2014 08/18/2021 Chronic pain syndrome [G89.4] 07/18/2014 Opioid dependence (HCC) [F11.20] 07/18/2014 Medication overuse headache [G44.40] 07/18/2014 08/18/2021 Opiate dependence (HCC) [F11.20] 10/20/2014 08/18/2021 Pseudoarthrosis of lumbar spine [S32.009K] 12/08/2014 08/18/2021 Sacroiliitis (HCC) [M46.1] 10/17/2015 08/18/2021 Secondary hypertension [I15.9] 08/07/2021 08/07/2021 Primary hypertension [I10] 08/07/2021 Cerebrovascular accident (CVA) due to thrombosi*08/07/2021 Spondylolisthesis, lumbar region [M43.16] 08/16/2021 Status post lumbar spinal fusion [Z98.1] 08/17/2021 Mixed hyperlipidemia [E78.2] 08/18/2021 BPH (benign prostatic hyperplasia) [N40.0] 08/18/2021 GERD (gastroesophageal reflux disease) [K21.9] 08/18/2021 CKD (chronic kidney disease) stage 3, GFR 30-59*08/18/2021 Post-operative infection [T81.40XA] 09/12/2021 Obesity [E66.9] 09/12/2021 Delirium [R41.0] 09/15/2021 Back pain [M54.9] 11/21/2021 Low back pain [M54.50] 11/21/2021 Weakness of left lower extremity [R29.898] 11/27/2021 Sleep apnea [G47.30] 12/17/2021 Lumbar pseudoarthrosis [S32.009K] 12/31/2021 Obesity, Class II, BMI 35-39.9 [E66.9] 01/01/2022 Anemia [D64.9] 01/04/2022 Encounter Status:Closed by GRETA NUNEZ on 03/12/22 [facility] 02-27-2022 CNOV Office Visit (NSFRVW ) -------- MARY JIMENEZ ([id number]) 1960 M Date Time Provider Department 02/27/22 10:00 AM CHRISTY CAT NSFRVW During your visit today, we recorded the following information about you: Christy Cat PA-C 02/27/2022 11:37 AM Signed SPINE SURGERY ESTABLISHED DATE OF SERVICE: 02/27/2022 DATE OF LAST VISIT: 02/13/2022 SUBJECTIVE: HPI:Mary Jimenez is a 61 year old male presenting alone. He is s/p L4-pelvis revision on 12/31/21. He states the drainage from his incision has gotten worse. The other day he could feel that it drained down to his underwear. Today, the gauze was not completely soaked but there was still moderate amount of yellow drainage. He denies fever or chills. His most comfortable position is lying prone. Still taking hydrocodone for pain. PAIN EVALUATION No data found in the last 1 encounters. REVIEW OF SYSTEMS: GENERAL: No weight loss or malaise MUSCULOSKELETAL: Negative for joint pain, swelling or muscle pain NEURO: No history of headaches, syncope, paralysis, seizures or tremors MEDICATIONS: HYDROcodone-acetaminophe n (NORCO) 5-325 mg per tablet Take 1 tablet by mouth every 6 hours as needed for pain for up to 7 days. Pregabalin (LYRICA) 200 mg capsule Take 1 capsule by mouth three times daily for 90 days. clopidogrel (PLAVIX) 75 mg tablet Take 1 tablet by mouth once daily. Please hold this medication until post op day 10 acetaminophen (TYLENOL) 500 mg tablet Take 2 tablets by mouth every 8 hours as needed for pain. telmisartan (MICARDIS) 80 mg tablet Take 80 mg by mouth once daily. docusate sodium (COLACE) 100 mg capsule Take 1 capsule by mouth twice daily. docosahexaenoic acid/epa (FISH OIL ORAL) Take 5 capsules by mouth once daily. fremanezumab-vfrm (AJOVY SYRINGE SUBCUTANEOUS) Inject 250 mg/mL subcutaneously. every 28 days for migraines CHROMIUM PICOLINATE ORAL Take 800 mcg by mouth once daily. MAGNESIUM ORAL Take 400 mg by mouth once daily. finasteride (PROSCAR) 5 mg tablet Take 5 mg by mouth daily at bedtime. CALCIUM CARBONATE/VITAMIN D3 (CALCIUM 600 + D ORAL) Take 1 tablet by mouth once daily. LACTOBACILLUS ACIDOPHILUS (PROBIOTIC ACIDOPHILUS ORAL) Take 1 capsule by mouth once daily. doxepin capsule 10 mg Take 10 mg by mouth daily at bedtime. Takes 2 tabs at bedtime dicyclomine (BENTYL) 10 mg capsule Take 20 mg by mouth as needed. 4 times daily as needed eletriptan (RELPAX) 40 mg tablet Take 40 mg by mouth as needed. may repeat in 2 hours if necessary atorvastatin (LIPITOR) 80 mg tablet Take 80 mg by mouth daily at bedtime. DULoxetine (CYMBALTA) 30 mg capsule Take 1 capsule by mouth once daily. Take with 60 mg for 90 mg total dose. (Patient taking differently: Take 30 mg by mouth three times daily. Takes 30 mg three times daily per patient) baclofen (LIORESAL) 20 mg tablet Take 20 mg by mouth daily at bedtime. furosemide (LASIX) 40 mg tablet Take 40 mg by mouth once daily. doxazosin (CARDURA) 4 mg tablet Take 4 mg by mouth once daily. metoprolol succinate XL, long acting, (TOPROL XL) 50 mg 24 hr tablet Take 50 mg by mouth once daily. cyanocobalamin (VITAMIN B-12) 1,000 mcg tab Take 1,000 mcg by mouth once daily. fluticasone (FLONASE) 50 mcg/actuation nasal spray Use 2 Sprays in each nostril twice daily. lactobacillus combination no.4 3 billion cell cap Take 1 capsule by mouth once daily. clindamycin (CLEOCIN) 150 mg capsule Take 1 capsule by mouth three times daily for 7 days. HYDROcodone-acetaminophe n (NORCO) 5-325 mg per tablet Take 1 tablet by mouth every 8 hours as needed for pain for up to 7 days. QUEtiapine (SEROQUEL) 25 mg tablet Take 1 tablet by mouth daily at bedtime. QUEtiapine (SEROQUEL) 25 mg tablet Take 1 tablet by mouth twice daily as needed (Delirium) for up to 5 days. Patient Entered Questionnaires Spine Questions 01/14/2022 01/26/2022 02/07/2022 Pain Location: Lower back Lower back Leg Pain Duration: - - - Pain over last 6 months: - - - Symptoms from neck/cervical spine: No No No Employment Status: Disabled for reasons other than back pain - - Involved in law suit/legal claim: - - - Neck Questionnaires 10/02/2021 Benzel Modified SCARLETT Score Incomplete PROMIS Score Percentiles Physical Health 10/02/2021 12/04/2021 01/14/2022 Physical Function Percentile 0 73 0 Sleep Percentile 2 50 2 Fatigue Percentile 4 98 79 Pain Interference Percentile 0 0 0 PROMIS SOCIAL ROLE SCORE 10/02/2021 12/04/2021 01/14/2022 Social Role Satisfaction Percentile 1 1 1 PROMIS Global Health Scale 08/07/2021 12/04/2021 02/25/2022 Physical Health Percentile 4 7 7 Mental Health Percentile 13 3 3 Percentiles provide an indication of how the patient's score ranks in relation to the general population. Higher percentile rankings indicate better function/quality of life. 50th percentile is the average of the gen (more content not included)... [facility] 02-26-2022 [facility] Telephone (NEADFV) -------- MARY JIMENEZ ([id number]) 1960 M Date Time Provider Department 02/26/22 LOYDA STEELE During your visit today, we recorded the following information about you: Samantha Alonzo 02/26/2022 4:25 PM Nikhil Bellamy from PT called to let the provider know that the patient has been non-compliant with back precautions. [phone] Allergies As of Date: 02/26/2022 Noted Allergy Reaction PENICILLINS 06/07/2014 10 - Anaphylaxis LATEX 09/04/2016 2 - Rash Date Reviewed: 02/13/2022 Reviewed by: Tammie Hall MA - Fully Assessed Reason for Visit: Patient Update [1234] Cmt: from P.T. Prescriptions as of 02/28/2022 - lactobacillus combination no.4 3 billion cell cap Take 1 capsule by mouth once daily. - clindamycin (CLEOCIN) 150 mg capsule Take 1 capsule by mouth three times daily for 7 days. - HYDROcodone-acetaminophe n (NORCO) 5-325 mg per tablet Take 1 tablet by mouth every 8 hours as needed for pain for up to 7 days. - Pregabalin (LYRICA) 200 mg capsule Take 1 capsule by mouth three times daily for 90 days. - QUEtiapine (SEROQUEL) 25 mg tablet Take 1 tablet by mouth daily at bedtime. - clopidogrel (PLAVIX) 75 mg tablet Take 1 tablet by mouth once daily. Please hold this medication until post op day 10 - acetaminophen (TYLENOL) 500 mg tablet Take 2 tablets by mouth every 8 hours as needed for pain. - telmisartan (MICARDIS) 80 mg tablet Take 80 mg by mouth once daily. - QUEtiapine (SEROQUEL) 25 mg tablet Take 1 tablet by mouth twice daily as needed (Delirium) for up to 5 days. - docusate sodium (COLACE) 100 mg capsule Take 1 capsule by mouth twice daily. - docosahexaenoic acid/epa (FISH OIL ORAL) Take 5 capsules by mouth once daily. - fremanezumab-vfrm (AJOVY SYRINGE SUBCUTANEOUS) Inject 250 mg/mL subcutaneously. every 28 days for migraines - CHROMIUM PICOLINATE ORAL Take 800 mcg by mouth once daily. - MAGNESIUM ORAL Take 400 mg by mouth once daily. - finasteride (PROSCAR) 5 mg tablet Take 5 mg by mouth daily at bedtime. - CALCIUM CARBONATE/VITAMIN D3 (CALCIUM 600 + D ORAL) Take 1 tablet by mouth once daily. - LACTOBACILLUS ACIDOPHILUS (PROBIOTIC ACIDOPHILUS ORAL) Take 1 capsule by mouth once daily. - doxepin capsule 10 mg Take 10 mg by mouth daily at bedtime. Takes 2 tabs at bedtime - dicyclomine (BENTYL) 10 mg capsule Take 20 mg by mouth as needed. 4 times daily as needed - eletriptan (RELPAX) 40 mg tablet Take 40 mg by mouth as needed. may repeat in 2 hours if necessary - atorvastatin (LIPITOR) 80 mg tablet Take 80 mg by mouth daily at bedtime. - DULoxetine (CYMBALTA) 30 mg capsule Take 1 capsule by mouth once daily. Take with 60 mg for 90 mg total dose. - baclofen (LIORESAL) 20 mg tablet Take 20 mg by mouth daily at bedtime. - furosemide (LASIX) 40 mg tablet Take 40 mg by mouth once daily. - doxazosin (CARDURA) 4 mg tablet Take 4 mg by mouth once daily. - metoprolol succinate XL, long acting, (TOPROL XL) 50 mg 24 hr tablet Take 50 mg by mouth once daily. - cyanocobalamin (VITAMIN B-12) 1,000 mcg tab Take 1,000 mcg by mouth once daily. - fluticasone (FLONASE) 50 mcg/actuation nasal spray Use 2 Sprays in each nostril twice daily. Problem List As Of Date 02/26/2022 Noted Resolved Headache(784.0) [R51] 07/18/2014 08/18/2021 Adjustment disorder with anxious mood [F43.22] 07/18/2014 Chronic daily headache [R51.9] 07/18/2014 08/18/2021 Intractable chronic migraine without aura [G43.*07/18/2014 Chronic back pain [M54.9, G89.29] 07/18/2014 08/18/2021 Chronic pain syndrome [G89.4] 07/18/2014 Opioid dependence (HCC) [F11.20] 07/18/2014 Medication overuse headache [G44.40] 07/18/2014 08/18/2021 Opiate dependence (HCC) [F11.20] 10/20/2014 08/18/2021 Pseudoarthrosis of lumbar spine [S32.009K] 12/08/2014 08/18/2021 Sacroiliitis (HCC) [M46.1] 10/17/2015 08/18/2021 Secondary hypertension [I15.9] 08/07/2021 08/07/2021 Primary hypertension [I10] 08/07/2021 Cerebrovascular accident (CVA) due to thrombosi*08/07/2021 Spondylolisthesis, lumbar region [M43.16] 08/16/2021 Status post lumbar spinal fusion [Z98.1] 08/17/2021 Mixed hyperlipidemia [E78.2] 08/18/2021 BPH (benign prostatic hyperplasia) [N40.0] 08/18/2021 GERD (gastroesophageal reflux disease) [K21.9] 08/18/2021 CKD (chronic kidney disease) stage 3, GFR 30-59*08/18/2021 Post-operative infection [T81.40XA] 09/12/2021 Obesity [E66.9] 09/12/2021 Delirium [R41.0] 09/15/2021 Back pain [M54.9] 11/21/2021 Low back pain [M54.50] 11/21/2021 Weakness of left lower extremity [R29.898] 11/27/2021 Sleep apnea [G47.30] 12/17/2021 Lumbar pseudoarthrosis [S32.009K] 12/31/2021 Obesity, Class II, BMI 35-39.9 [E66.9] 01/01/2022 Anemia [D64.9] 01/04/2022 Encounter Status:Closed by SAMANTHA ALONZO on 02/28/22 [facility] Basophils Auto (Bld) [#/Vol] Ordered By: Jose Ray on 02-25-2022 Basophils (Bld) [#/Vol] 0.1 10*3/uL 0.0-0.2 [facility] Basophils/100 WBC Auto (Bld) Ordered By: Jose Ray on 02-25-2022 Basophils/100 WBC (Bld) 0.9 % . [facility] Blood hemoglobin measurement (mass/volume)Ordered By: Jose Ray on 02-25-2022 Hemoglobin (Bld) [Mass/Vol] 10.7 g/dL 13.0-17.0 [facility] Blood leukocytes automated c ount (number/volume)Ordered By: Jose Ray on 02-25-2022 WBC (Bld) [#/Vol] 5.7 10*3/uL 4.5-11.0 [facility] Body fluid albumin measureme nt (mass/volume)Ordered By: Jose Ray on 02-25-2022 Albumin (Body fld) [Mass/Vol] 3.9 g/dL 3.2-5.5 [facility] Cholesterol [Mass/volume] in Serum or PlasmaOrdered By: Jose Ray on 02-25-2022 Cholesterol [Mass/Vol] 194 mg/dL 140-200 [facility] Comment on above: Chol less than 200 m g/dl low risk Chol 201-239 mg/dl borderline risk Chol 240 mg/dl and greater high risk Chol less than 200 m g/dl low riskChol 201-239 mg/dl borderline riskChol 240 mg/dl and greater high risk Cholesterol in LDL Calc [Mas s/Vol]Ordered By: Jose Ray on 02-25-2022 Cholesterol in LDL [Mass/Vol] 115 mg/dL 0-100 [facility] Comment on above: LDL ATP III CLASSIFI CATION LDL less than 100 mg/dL Optimal LDL 100-129 mg/dL Near or above optimal LDL 130-159 mg/dL Borderline high LDL 160-189 mg/dL High LDL greater than 189 mg/dL Very high LDL ATP III CLASSIFI CATIONLDL less than 100 mg/dL OptimalLDL 100-129 mg/dL Near or above optimalLDL 130-159 mg/dL Borderline highLDL 160-189 mg/dL HighLDL greater than 189 mg/dL Very high Cholesterol in VLDL Calc [Ma ss/Vol]Ordered By: Jose Ray on 02-25-2022 Cholesterol in VLDL [Mass/Vol] 41 mg/dL [facility] Creatinine and Glomerular fi ltration rate.predicted panel (S/P/Bld)Ordered By: Jose Ray on 02-25-2022 Creatinine [Mass/Vol] 1.33 mg/dL 0.64-1.27 [facility] Direct bilirubin measurement Ordered By: Jose Ray on 02-25-2022 Bilirubin.direct [Mass/Vol] mg/dL 0.0-0.4 [facility] Eosinophils Auto (Bld) [#/Vo l]Ordered By: Jose Ray on 02-25-2022 Eosinophils (Bld) [#/Vol] 0.3 10*3/uL 0.0-0.45 [facility] Eosinophils/100 WBC Auto (Bl d)Ordered By: Jose Ray on 02-25-2022 Eosinophils/100 WBC (Bld) 5.3 % . [facility] Erythrocyte distribution wid th Auto (RBC) [Ratio]Ordered By: Jose Ray on 02-25-2022 Erythrocyte distribution width (RBC) [Ratio] 16.1 % 12.0-14.8 [facility] Estimated glomerular filtrat ion rate (GFR) non- AmericanOrdered By: Jose Ray on 02-25-2022 GFR/1.73 sq M.predicted among non-blacks MDRD (S/P/Bld) [Vol rate/Area] 54 mL/Min [facility] Globulin Calc (S) [Mass/Vol] Ordered By: Jose Ray on 02-25-2022 Globulin (S) [Mass/Vol] 2.5 g/dL [facility] Glucose mean value [Mass/vol ume] in Blood Estimated from glycated hemoglobinOrdered By: Jose Ray on 02-25-2022 Average glucose Estimated from glycated hemoglobin (Bld) [Mass/Vol] 120 mg/dL [facility] Hematocrit Auto (Bld) [Volum e fraction]Ordered By: Jose Ray on 02-25-2022 Hematocrit (Bld) [Volume fraction] 33.6 % 38.8-50.0 [facility] Hemoglobin A1c percentageOrd ered By: Jose Ray on 02-25-2022 HbA1c (Bld) [Mass fraction] 5.8 % 4.3-5.6 [facility] Comment on above: Increased risk for d iabetes: 5.7 - 6.4 diabetes: >6.4 glycemic control for adults with diabetes: <7.0 Increased risk for d iabetes: 5.7 - 6.4diabetes: >6.4glycemic control for adults with diabetes: <7.0 Laboratory - Hematology and Cell countsOrdered By: Jose Ray on 02-25-2022 Nucleated RBC/100 WBC (Bld) [Ratio] 0.1 % 0-0.5 [facility] Lymphocytes Auto (Bld) [#/Vo l]Ordered By: Jose Obdiane on 02-25-2022 Lymphocytes (Bld) [#/Vol] 0.9 10*3/uL 1.00-4.8 [facility] Lymphocytes/100 WBC Auto (Bl d)Ordered By: Jose Obdiane on 02-25-2022 Lymphocytes/100 WBC (Bld) 15.6 % . [facility] MCH Auto (RBC) [Entitic mass ]Ordered By: Jose Obdiane on 02-25-2022 MCH (RBC) [Entitic mass] 25.4 pg 27.5-35.2 [facility] MCHC Auto (RBC) [Mass/Vol]Or dered By: Jose Oberemegan on 02-25-2022 MCHC (RBC) [Mass/Vol] 31.9 g/dL 32.5-35.6 [facility] MCV Auto (RBC) [Entitic vol] Ordered By: Jose Ray on 02-25-2022 MCV (RBC) [Entitic vol] 79.6 fL 83.5-101 [facility] Monocytes Auto (Bld) [#/Vol] Ordered By: Jose Obdiane on 02-25-2022 Monocytes (Bld) [#/Vol] 0.5 10*3/uL 0.0-0.8 [facility] Monocytes/100 WBC Auto (Bld) Ordered By: Jose Obdiane on 02-25-2022 Monocytes/100 WBC (Bld) 8.9 % . [facility] Neutrophils Auto (Bld) [#/Vo l]Ordered By: Jose Obdiane on 02-25-2022 Neutrophils (Bld) [#/Vol] 3.9 10*3/uL 1.8-7.7 [facility] Neutrophils/100 WBC Auto (Bl d)Ordered By: Jose Oberemegan on 02-25-2022 Neutrophils/100 WBC (Bld) 69.3 % . [facility] No Panel InformationOrdered By: Rosey Dubose on 02-25-2022 Prostate Specific Antigen Screen 0.160 ng/mL 0.000-4.000 [facility] No Panel InformationOrdered By: Jose Ray on 02-25-2022 Estimated GFR () > 60 mL/Min [facility] Comment on above: GFR estimated refere nce range: According to KDOQI guidelines, <60 ml/min/1.73m2 is sufficient to diagnose a patient with chronic kidney disease. Pharmacy Creatinine Clearance (Chem N/A [facility] Platelet mean volume Auto (B ld) [Entitic vol]Ordered By: Jose Ray on 02-25-2022 Platelet mean volume (Bld) [Entitic vol] 9.3 fL 6.6-10.1 [facility] Platelets Auto (Bld) [#/Vol] Ordered By: Jose Ray on 02-25-2022 Platelets (Bld) [#/Vol] 241 10*3/uL 150-450 [facility] Protein [Mass/volume] in Ser um or PlasmaOrdered By: Jose Ray on 02-25-2022 Protein [Mass/Vol] 6.4 g/dL 6.1-7.9 [facility] RBC Auto (Bld) [#/Vol]Ordere d By: Jose Ray on 02-25-2022 RBC (Bld) [#/Vol] 4.23 10*6/uL 3.90-5.60 [facility] Serum or plasma alanine cherry otransferase measurement without P-5'-P (enzymatic activiOrdered By: Jose Ray on 02-25-2022 ALT No additional P-5'-P [Catalytic activity/Vol] 18 U/L 10-60 [facility] Serum or plasma albumin/glob ulin mass ratioOrdered By: Jose Ray on 02-25-2022 Albumin/Globulin [Mass ratio] 1.6 {ratio} [facility] Serum or plasma alkaline victorina sphatase measurement (enzymatic activity/volume)Ordered By: Jose Ray on 02-25-2022 ALP [Catalytic activity/Vol] 79 U/L 32-92 [facility] Serum or plasma anion gap de terminationOrdered By: Jose Ray on 02-25-2022 Anion gap [Moles/Vol] 13.6 mmol/L 6.0-15.0 [facility] Serum or plasma aspartate am inotransferase measurement (enzymatic activity/volume)Ordered By: Jose Ray on 02-25-2022 AST [Catalytic activity/Vol] 18 U/L 10-42 [facility] Serum or plasma calcium paula urement (mass/volume)Ordered By: Jose Ray on 02-25-2022 Calcium [Mass/Vol] 9.1 mg/dL 8.2-10.2 [facility] Serum or plasma chloride miriam surement (moles/volume)Ordered By: Jose Ray on 02-25-2022 Chloride [Moles/Vol] 100 mmol/L 95-114 [facility] Serum or plasma glucose paula urement (mass/volume)Ordered By: Jose Ray on 02-25-2022 Glucose [Mass/Vol] 99 mg/dL 70-100 [facility] Comment on above: ADA recommended refe rence range Random Glucose Reference Range is dependent on time and content of last meal. Glucose of more than 200 mg/dL in a nonstressed, ambulatory subject supports the diagnosis of Diabetes Mellitus. ADA recommended refe rence rangeRandom Glucose Reference Range is dependent on time and content of last meal. Glucose of more than 200 mg/dL in a nonstressed, ambulatory subject supports the diagnosis of Diabetes Mellitus. Serum or plasma high density lipoprotein (HDL) cholesterol measurementOrdered By: Jose Ray on 02-25-2022 Cholesterol in HDL [Mass/Vol] 38 mg/dL 29-71 [facility] Comment on above: HDL CHOL ATP-III CLA SSIFICATION Cardiovascular Risk HDL > or equal to 60 mg/dL LOW HDL < 40 mg/dL HIGH HDL CHOL ATP-III CLA SSIFICATION Cardiovascular RiskHDL > or equal to 60 mg/dL LOWHDL < 40 mg/dL HIGH Serum or plasma non-glucuron idated bilirubin measurement (mass/volume)Ordered By: Jose Ray on 02-25-2022 Bilirubin.indirect [Mass/Vol] TNP [facility] Comment on above: Test not performed Serum or plasma potassium me asurement (moles/volume)Ordered By: Jose Ray on 02-25-2022 Potassium [Moles/Vol] 4.4 mmol/L 3.5-5.1 [facility] Serum or plasma sodium measu rement (moles/volume)Ordered By: Jose Ray on 02-25-2022 Sodium [Moles/Vol] 136 mmol/L 136-146 [facility] Serum or plasma thyroxine (T 4) measurement (mass/volume)Ordered By: Jose Ray on 02-25-2022 T4 [Mass/Vol] 6.61 ug/dL 5.39-11.82 [facility] Serum or plasma total biliru bin measurement (mass/volume)Ordered By: Jose Ray on 02-25-2022 Bilirubin [Mass/Vol] 0.6 mg/dL 0.3-1.2 [facility] Serum or plasma total carbon dioxide measurement (moles/volume)Ordered By: Jose Ray on 02-25-2022 CO2 [Moles/Vol] 26.8 mmol/L 22.0-30.0 [facility] Serum or plasma total choles terol/high density lipoprotein (HDL) cholesterol mass ratOrdered By: Jose Ray on 02-25-2022 Cholesterol.total/Chol esterol in HDL [Mass ratio] 5.1 {ratio} <5.0 [facility] Serum or plasma urea nitroge n measurement (mass/volume)Ordered By: Jose Ray on 02-25-2022 Urea nitrogen [Mass/Vol] 19 mg/dL 9-23 [facility] TSH DL <= 0.005 mIU/L QnOrde red By: Jose Ray on 02-25-2022 TSH Qn 2.55 m[IU]/L 0.45-5.33 [facility] Testosterone [Mass/volume] i n Serum or PlasmaOrdered By: Rosey Dubose on 02-25-2022 Testosterone [Mass/Vol] 12.54 ng/mL 1.75-7.81 [facility] Triglyceride [Mass/volume] i n Serum or PlasmaOrdered By: Jose Ray on 02-25-2022 Triglyceride [Mass/Vol] 207 mg/dL 35-149 [facility] Comment on above: TRIG ATP III CLASSIF ICATION TRIG less than 150 mg/dL Normal TRIG 150-199 mg/dL Borderline high TRIG 200-500 mg/dL High TRIG greater than 500 mg/dL Very high Standard traceable to the Center for Disease Conrtrol and Prevention (CDC) test method. TRIG ATP III CLASSIF ICATIONTRIG less than 150 mg/dL NormalTRIG 150-199 mg/dL Borderline highTRIG 200-500 mg/dL High TRIG greater than 500 mg/dL Very highStandard traceable to the Center for Disease Conrtrol and Prevention (CDC) test method. Pamela 02-24-2022 CNPN Telephone (NIQ) -------- MARY JIMENEZ ([id number]) 1960 Date Time Provider Department 02/24/22 LOYDA STEELE During your visit today, we recorded the following information about you: Sandra Godoy Pss 02/24/2022 11:07 AM Signed Patient called stating that on 02/11 our office told him he had to redo his creatinine labs. He would like us to fax those orders to [facility] [address] lab at [phone] Christine Gutierrez PA-C 02/24/2022 11:58 AM Signed Order placed and faxed to the provided number. Allergies As of Date: 02/24/2022 Noted Allergy Reaction PENICILLINS 06/07/2014 10 - Anaphylaxis LATEX 09/04/2016 2 - Rash Date Reviewed: 02/13/2022 Reviewed by: Tammie Hall MA - Fully Assessed Reason for Visit: Lab Orders [1689] Primary Visit Diagnosis:Spinal stenosis of lumbar region with neurogenic claudication [M48.062] Order(s):CREATININE BLD [SQCRET] Order #: [id number] FUTURE Prescriptions as of 04/01/2022 - QUEtiapine (SEROQUEL) 25 mg tablet Take 1 tablet by mouth daily at bedtime. - lactobacillus combination no.4 3 billion cell cap Take 1 capsule by mouth once daily. - Pregabalin (LYRICA) 200 mg capsule Take 1 capsule by mouth three times daily for 90 days. - clopidogrel (PLAVIX) 75 mg tablet Take 1 tablet by mouth once daily. Please hold this medication until post op day 10 - telmisartan (MICARDIS) 80 mg tablet Take 80 mg by mouth once daily. - docusate sodium (COLACE) 100 mg capsule Take 1 capsule by mouth twice daily. - docosahexaenoic acid/epa (FISH OIL ORAL) Take 5 capsules by mouth once daily. - fremanezumab-vfrm (AJOVY SYRINGE SUBCUTANEOUS) Inject 250 mg/mL subcutaneously. every 28 days for migraines - CHROMIUM PICOLINATE ORAL Take 800 mcg by mouth once daily. - MAGNESIUM ORAL Take 400 mg by mouth once daily. - finasteride (PROSCAR) 5 mg tablet Take 5 mg by mouth daily at bedtime. - CALCIUM CARBONATE/VITAMIN D3 (CALCIUM 600 + D ORAL) Take 1 tablet by mouth once daily. - LACTOBACILLUS ACIDOPHILUS (PROBIOTIC ACIDOPHILUS ORAL) Take 1 capsule by mouth once daily. - doxepin capsule 10 mg Take 10 mg by mouth daily at bedtime. Takes 2 tabs at bedtime - dicyclomine (BENTYL) 10 mg capsule Take 20 mg by mouth as needed. 4 times daily as needed - eletriptan (RELPAX) 40 mg tablet Take 40 mg by mouth as needed. may repeat in 2 hours if necessary - atorvastatin (LIPITOR) 80 mg tablet Take 80 mg by mouth daily at bedtime. - DULoxetine (CYMBALTA) 30 mg capsule Take 1 capsule by mouth once daily. Take with 60 mg for 90 mg total dose. - baclofen (LIORESAL) 20 mg tablet Take 20 mg by mouth daily at bedtime. - furosemide (LASIX) 40 mg tablet Take 40 mg by mouth once daily. - doxazosin (CARDURA) 4 mg tablet Take 4 mg by mouth once daily. - metoprolol succinate XL, long acting, (TOPROL XL) 50 mg 24 hr tablet Take 50 mg by mouth once daily. - cyanocobalamin (VITAMIN B-12) 1,000 mcg tab Take 1,000 mcg by mouth once daily. - fluticasone (FLONASE) 50 mcg/actuation nasal spray Use 2 Sprays in each nostril twice daily. Problem List As Of Date 02/24/2022 Noted Resolved Headache(784.0) [R51] 07/18/2014 08/18/2021 Adjustment disorder with anxious mood [F43.22] 07/18/2014 Chronic daily headache [R51.9] 07/18/2014 08/18/2021 Intractable chronic migraine without aura [G43.*07/18/2014 Chronic back pain [M54.9, G89.29] 07/18/2014 08/18/2021 Chronic pain syndrome [G89.4] 07/18/2014 Opioid dependence (HCC) [F11.20] 07/18/2014 Medication overuse headache [G44.40] 07/18/2014 08/18/2021 Opiate dependence (HCC) [F11.20] 10/20/2014 08/18/2021 Pseudoarthrosis of lumbar spine [S32.009K] 12/08/2014 08/18/2021 Sacroiliitis (HCC) [M46.1] 10/17/2015 08/18/2021 Secondary hypertension [I15.9] 08/07/2021 08/07/2021 Primary hypertension [I10] 08/07/2021 Cerebrovascular accident (CVA) due to thrombosi*08/07/2021 Spondylolisthesis, lumbar region [M43.16] 08/16/2021 Status post lumbar spinal fusion [Z98.1] 08/17/2021 Mixed hyperlipidemia [E78.2] 08/18/2021 BPH (benign prostatic hyperplasia) [N40.0] 08/18/2021 GERD (gastroesophageal reflux disease) [K21.9] 08/18/2021 CKD (chronic kidney disease) stage 3, GFR 30-59*08/18/2021 Post-operative infection [T81.40XA] 09/12/2021 Obesity [E66.9] 09/12/2021 Delirium [R41.0] 09/15/2021 Back pain [M54.9] 11/21/2021 Low back pain [M54.50] 11/21/2021 Weakness of left lower extremity [R29.898] 11/27/2021 Sleep apnea [G47.30] 12/17/2021 Lumbar pseudoarthrosis [S32.009K] 12/31/2021 Obesity, Class II, BMI 35-39.9 [E66.9] 01/01/2022 Anemia [D64.9] 01/04/2022 Encounter Status:Closed by SANDRA MARTIN on 04/01/22 [facility] Telephone (NIQ) -------- MARY JIMENEZ ([id number]) 1960 M Date Time Provider Department 02/24/22 LOYDA STEELE NIGrupo During your visit today, we recorded the following information about you: Sandra Mcallister 02/24/2022 9:35 AM Signed Vivian from [facility] called, stating the patient's incision is still leaking, and there is also a small moveable polyp type bump in the center of the incision that is painful to the touch. Please call Vivian formerly [facility] nurse, at [phone] to advise. Anni Clifford RN 02/24/2022 11:03 AM Signed Message left with Healthcare nurse Vivian to send picture of incision to [facility] phone number provided for review. Anni Clifford RN 02/24/2022 12:00 PM Signed Call placed to pt to set up appointment for wound check for , 02/27/2022. Message left on voicemail with return number. 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 Greta Nunez RN 02/25/2022 8:13 AM Signed Appointment scheduled. Allergies As of Date: 02/24/2022 Noted Allergy Reaction PENICILLINS 06/07/2014 10 - Anaphylaxis LATEX 09/04/2016 2 - Rash Date Reviewed: 02/13/2022 Reviewed by: Tammie Hall MA - Fully Assessed Reason for Visit: Wound Check [133] Prescriptions as of 02/25/2022 - HYDROcodone-acetaminophe n (NORCO) 5-325 mg per tablet Take 1 tablet by mouth every 6 hours as needed for pain for up to 7 days. - Pregabalin (LYRICA) 200 mg capsule Take 1 capsule by mouth three times daily for 90 days. - QUEtiapine (SEROQUEL) 25 mg tablet Take 1 tablet by mouth daily at bedtime. - clopidogrel (PLAVIX) 75 mg tablet Take 1 tablet by mouth once daily. Please hold this medication until post op day 10 - acetaminophen (TYLENOL) 500 mg tablet Take 2 tablets by mouth every 8 hours as needed for pain. - telmisartan (MICARDIS) 80 mg tablet Take 80 mg by mouth once daily. - QUEtiapine (SEROQUEL) 25 mg tablet Take 1 tablet by mouth twice daily as needed (Delirium) for up to 5 days. - docusate sodium (COLACE) 100 mg capsule Take 1 capsule by mouth twice daily. - docosahexaenoic acid/epa (FISH OIL ORAL) Take 5 capsules by mouth once daily. - fremanezumab-vfrm (AJOVY SYRINGE SUBCUTANEOUS) Inject 250 mg/mL subcutaneously. every 28 days for migraines - CHROMIUM PICOLINATE ORAL Take 800 mcg by mouth once daily. - MAGNESIUM ORAL Take 400 mg by mouth once daily. - finasteride (PROSCAR) 5 mg tablet Take 5 mg by mouth daily at bedtime. - CALCIUM CARBONATE/VITAMIN D3 (CALCIUM 600 + D ORAL) Take 1 tablet by mouth once daily. - LACTOBACILLUS ACIDOPHILUS (PROBIOTIC ACIDOPHILUS ORAL) Take 1 capsule by mouth once daily. - doxepin capsule 10 mg Take 10 mg by mouth daily at bedtime. Takes 2 tabs at bedtime - dicyclomine (BENTYL) 10 mg capsule Take 20 mg by mouth as needed. 4 times daily as needed - eletriptan (RELPAX) 40 mg tablet Take 40 mg by mouth as needed. may repeat in 2 hours if necessary - atorvastatin (LIPITOR) 80 mg tablet Take 80 mg by mouth daily at bedtime. - DULoxetine (CYMBALTA) 30 mg capsule Take 1 capsule by mouth once daily. Take with 60 mg for 90 mg total dose. - baclofen (LIORESAL) 20 mg tablet Take 20 mg by mouth daily at bedtime. - furosemide (LASIX) 40 mg tablet Take 40 mg by mouth once daily. - doxazosin (CARDURA) 4 mg tablet Take 4 mg by mouth once daily. - metoprolol succinate XL, long acting, (TOPROL XL) 50 mg 24 hr tablet Take 50 mg by mouth once daily. - cyanocobalamin (VITAMIN B-12) 1,000 mcg tab Take 1,000 mcg by mouth once daily. - fluticasone (FLONASE) 50 mcg/actuation nasal spray Use 2 Sprays in each nostril twice daily. Problem List As Of Date 02/24/2022 Noted Resolved Headache(784.0) [R51] 07/18/2014 08/18/2021 Adjustment disorder with anxious mood [F43.22] 07/18/2014 Chronic daily headache [R51.9] 07/18/2014 08/18/2021 Intractable chronic migraine without aura [G43.*07/18/2014 Chronic back pain [M54.9, G89.29] 07/18/2014 08/18/2021 Chronic pain syndrome [G89.4] 07/18/2014 Opioid dependence (HCC) [F11.20] 07/18/2014 Medication overuse headache [G44.40] 07/18/2014 08/18/2021 Opiate dependence (HCC) [F11.20] 10/20/2014 08/18/2021 Pseudoarthrosis of lumbar spine [S32.009K] 12/08/2014 08/18/2021 Sacroiliitis (HCC) [M46.1] 10/17/2015 08/18/2021 Secondary hypertension [I15.9] 08/07/2021 08/07/2021 Primary hypertension [I10] 08/07/2021 Cerebrovascular accident (CVA) due to thrombosi*08/07/2021 Spondylolisthesis, lumbar region [M43.16] 08/16/2021 Status post lumbar spinal fusion [Z98.1] 08/17/2021 Mixed hyperlipidemia [E78.2] 08/18/2021 BPH (benign prostatic hyperplasia) [N40.0] 08/18/2021 GERD (gastroesophageal reflux disease) [K21.9] 08/18/2021 CKD (chronic kidney disease) stage 3, GFR 30-59*08/18/2021 Post-operative infection [T81.40XA] 09/12/2021 Obesity [E66.9] 09/12/2021 Delirium [R41.0] 09/15/2021 Back pain [M54.9] 11/21/2021 Low back p (more content not included)... [facility] (NEADFV[facility] -------- MARY JIMENEZ ([id number]) 1960 M Date Time Provider Department 02/20/22 LOYDA STEELE NESANIAFV During your visit today, we recorded the following information about you: Gale De León 02/20/2022 10:31 AM Signed Received lab report from [facility], uploaded to chart and forwarded for review. Anni Clifford RN 02/20/2022 12:58 PM Signed Scan on 02/20/2022 9:33 AM by External Provider: [facility] Allergies As of Date: 02/20/2022 Noted Allergy Reaction PENICILLINS 06/07/2014 10 - Anaphylaxis LATEX 09/04/2016 2 - Rash Date Reviewed: 02/13/2022 Reviewed by: Tammie Hall MA - Fully Assessed Reason for Visit: Lab report [Other] Prescriptions as of 03/07/2022 - HYDROcodone-acetaminophe n (NORCO) 5-325 mg per tablet Take 1 tablet by mouth every 8 hours as needed for pain for up to 7 days. - lactobacillus combination no.4 3 billion cell cap Take 1 capsule by mouth once daily. - Pregabalin (LYRICA) 200 mg capsule Take 1 capsule by mouth three times daily for 90 days. - QUEtiapine (SEROQUEL) 25 mg tablet Take 1 tablet by mouth daily at bedtime. - clopidogrel (PLAVIX) 75 mg tablet Take 1 tablet by mouth once daily. Please hold this medication until post op day 10 - telmisartan (MICARDIS) 80 mg tablet Take 80 mg by mouth once daily. - QUEtiapine (SEROQUEL) 25 mg tablet Take 1 tablet by mouth twice daily as needed (Delirium) for up to 5 days. - docusate sodium (COLACE) 100 mg capsule Take 1 capsule by mouth twice daily. - docosahexaenoic acid/epa (FISH OIL ORAL) Take 5 capsules by mouth once daily. - fremanezumab-vfrm (AJOVY SYRINGE SUBCUTANEOUS) Inject 250 mg/mL subcutaneously. every 28 days for migraines - CHROMIUM PICOLINATE ORAL Take 800 mcg by mouth once daily. - MAGNESIUM ORAL Take 400 mg by mouth once daily. - finasteride (PROSCAR) 5 mg tablet Take 5 mg by mouth daily at bedtime. - CALCIUM CARBONATE/VITAMIN D3 (CALCIUM 600 + D ORAL) Take 1 tablet by mouth once daily. - LACTOBACILLUS ACIDOPHILUS (PROBIOTIC ACIDOPHILUS ORAL) Take 1 capsule by mouth once daily. - doxepin capsule 10 mg Take 10 mg by mouth daily at bedtime. Takes 2 tabs at bedtime - dicyclomine (BENTYL) 10 mg capsule Take 20 mg by mouth as needed. 4 times daily as needed - eletriptan (RELPAX) 40 mg tablet Take 40 mg by mouth as needed. may repeat in 2 hours if necessary - atorvastatin (LIPITOR) 80 mg tablet Take 80 mg by mouth daily at bedtime. - DULoxetine (CYMBALTA) 30 mg capsule Take 1 capsule by mouth once daily. Take with 60 mg for 90 mg total dose. - baclofen (LIORESAL) 20 mg tablet Take 20 mg by mouth daily at bedtime. - furosemide (LASIX) 40 mg tablet Take 40 mg by mouth once daily. - doxazosin (CARDURA) 4 mg tablet Take 4 mg by mouth once daily. - metoprolol succinate XL, long acting, (TOPROL XL) 50 mg 24 hr tablet Take 50 mg by mouth once daily. - cyanocobalamin (VITAMIN B-12) 1,000 mcg tab Take 1,000 mcg by mouth once daily. - fluticasone (FLONASE) 50 mcg/actuation nasal spray Use 2 Sprays in each nostril twice daily. Problem List As Of Date 02/20/2022 Noted Resolved Headache(784.0) [R51] 07/18/2014 08/18/2021 Adjustment disorder with anxious mood [F43.22] 07/18/2014 Chronic daily headache [R51.9] 07/18/2014 08/18/2021 Intractable chronic migraine without aura [G43.*07/18/2014 Chronic back pain [M54.9, G89.29] 07/18/2014 08/18/2021 Chronic pain syndrome [G89.4] 07/18/2014 Opioid dependence (HCC) [F11.20] 07/18/2014 Medication overuse headache [G44.40] 07/18/2014 08/18/2021 Opiate dependence (HCC) [F11.20] 10/20/2014 08/18/2021 Pseudoarthrosis of lumbar spine [S32.009K] 12/08/2014 08/18/2021 Sacroiliitis (HCC) [M46.1] 10/17/2015 08/18/2021 Secondary hypertension [I15.9] 08/07/2021 08/07/2021 Primary hypertension [I10] 08/07/2021 Cerebrovascular accident (CVA) due to thrombosi*08/07/2021 Spondylolisthesis, lumbar region [M43.16] 08/16/2021 Status post lumbar spinal fusion [Z98.1] 08/17/2021 Mixed hyperlipidemia [E78.2] 08/18/2021 BPH (benign prostatic hyperplasia) [N40.0] 08/18/2021 GERD (gastroesophageal reflux disease) [K21.9] 08/18/2021 CKD (chronic kidney disease) stage 3, GFR 30-59*08/18/2021 Post-operative infection [T81.40XA] 09/12/2021 Obesity [E66.9] 09/12/2021 Delirium [R41.0] 09/15/2021 Back pain [M54.9] 11/21/2021 Low back pain [M54.50] 11/21/2021 Weakness of left lower extremity [R29.898] 11/27/2021 Sleep apnea [G47.30] 12/17/2021 Lumbar pseudoarthrosis [S32.009K] 12/31/2021 Obesity, Class II, BMI 35-39.9 [E66.9] 01/01/2022 Anemia [D64.9] 01/04/2022 Encounter Status:Closed by GALE DE LEÓN on 03/07/22 [facility] 02-18-2022 CNPN Telephone (NEADFV) -------- MARY JIMENEZ ([id number]) 1960 M Date Time Provider Department 02/18/22 LOYDA STEELE NESANIAFV During your visit today, we recorded the following information about you: Gale Sarthak 02/18/2022 12:50 PM Signed Patient called asking if he can get an order for outpatient PT be sent to [facility] to fax [phone] Anni Clifford RN 02/19/2022 9:16 AM Signed Order faxed to [facility] with confirmation Allergies As of Date: 02/18/2022 Noted Allergy Reaction PENICILLINS 06/07/2014 10 - Anaphylaxis LATEX 09/04/2016 2 - Rash Date Reviewed: 02/13/2022 Reviewed by: Tammie Hall MA - Fully Assessed Reason for Visit: Orders [681] Primary Visit Diagnosis:Spondylolisthe sis of lumbar region [M43.16] Order(s):CONSULT TO PHYSICAL THERAPY [9032] Order #: [id number]: 1 FUTURE Prescriptions as of 02/19/2022 - HYDROcodone-acetaminophe n (NORCO) 5-325 mg per tablet Take 1 tablet by mouth every 8 hours as needed for pain for up to 7 days. - Pregabalin (LYRICA) 200 mg capsule Take 1 capsule by mouth three times daily for 90 days. - QUEtiapine (SEROQUEL) 25 mg tablet Take 1 tablet by mouth daily at bedtime. - clopidogrel (PLAVIX) 75 mg tablet Take 1 tablet by mouth once daily. Please hold this medication until post op day 10 - acetaminophen (TYLENOL) 500 mg tablet Take 2 tablets by mouth every 8 hours as needed for pain. - telmisartan (MICARDIS) 80 mg tablet Take 80 mg by mouth once daily. - QUEtiapine (SEROQUEL) 25 mg tablet Take 1 tablet by mouth twice daily as needed (Delirium) for up to 5 days. - docusate sodium (COLACE) 100 mg capsule Take 1 capsule by mouth twice daily. - docosahexaenoic acid/epa (FISH OIL ORAL) Take 5 capsules by mouth once daily. - fremanezumab-vfrm (AJOVY SYRINGE SUBCUTANEOUS) Inject 250 mg/mL subcutaneously. every 28 days for migraines - CHROMIUM PICOLINATE ORAL Take 800 mcg by mouth once daily. - MAGNESIUM ORAL Take 400 mg by mouth once daily. - finasteride (PROSCAR) 5 mg tablet Take 5 mg by mouth daily at bedtime. - CALCIUM CARBONATE/VITAMIN D3 (CALCIUM 600 + D ORAL) Take 1 tablet by mouth once daily. - LACTOBACILLUS ACIDOPHILUS (PROBIOTIC ACIDOPHILUS ORAL) Take 1 capsule by mouth once daily. - doxepin capsule 10 mg Take 10 mg by mouth daily at bedtime. Takes 2 tabs at bedtime - dicyclomine (BENTYL) 10 mg capsule Take 20 mg by mouth as needed. 4 times daily as needed - eletriptan (RELPAX) 40 mg tablet Take 40 mg by mouth as needed. may repeat in 2 hours if necessary - atorvastatin (LIPITOR) 80 mg tablet Take 80 mg by mouth daily at bedtime. - DULoxetine (CYMBALTA) 30 mg capsule Take 1 capsule by mouth once daily. Take with 60 mg for 90 mg total dose. - baclofen (LIORESAL) 20 mg tablet Take 20 mg by mouth daily at bedtime. - furosemide (LASIX) 40 mg tablet Take 40 mg by mouth once daily. - doxazosin (CARDURA) 4 mg tablet Take 4 mg by mouth once daily. - metoprolol succinate XL, long acting, (TOPROL XL) 50 mg 24 hr tablet Take 50 mg by mouth once daily. - cyanocobalamin (VITAMIN B-12) 1,000 mcg tab Take 1,000 mcg by mouth once daily. - fluticasone (FLONASE) 50 mcg/actuation nasal spray Use 2 Sprays in each nostril twice daily. Problem List As Of Date 02/18/2022 Noted Resolved Headache(784.0) [R51] 07/18/2014 08/18/2021 Adjustment disorder with anxious mood [F43.22] 07/18/2014 Chronic daily headache [R51.9] 07/18/2014 08/18/2021 Intractable chronic migraine without aura [G43.*07/18/2014 Chronic back pain [M54.9, G89.29] 07/18/2014 08/18/2021 Chronic pain syndrome [G89.4] 07/18/2014 Opioid dependence (HCC) [F11.20] 07/18/2014 Medication overuse headache [G44.40] 07/18/2014 08/18/2021 Opiate dependence (HCC) [F11.20] 10/20/2014 08/18/2021 Pseudoarthrosis of lumbar spine [S32.009K] 12/08/2014 08/18/2021 Sacroiliitis (HCC) [M46.1] 10/17/2015 08/18/2021 Secondary hypertension [I15.9] 08/07/2021 08/07/2021 Primary hypertension [I10] 08/07/2021 Cerebrovascular accident (CVA) due to thrombosi*08/07/2021 Spondylolisthesis, lumbar region [M43.16] 08/16/2021 Status post lumbar spinal fusion [Z98.1] 08/17/2021 Mixed hyperlipidemia [E78.2] 08/18/2021 BPH (benign prostatic hyperplasia) [N40.0] 08/18/2021 GERD (gastroesophageal reflux disease) [K21.9] 08/18/2021 CKD (chronic kidney disease) stage 3, GFR 30-59*08/18/2021 Post-operative infection [T81.40XA] 09/12/2021 Obesity [E66.9] 09/12/2021 Delirium [R41.0] 09/15/2021 Back pain [M54.9] 11/21/2021 Low back pain [M54.50] 11/21/2021 Weakness of left lower extremity [R29.898] 11/27/2021 Sleep apnea [G47.30] 12/17/2021 Lumbar pseudoarthrosis [S32.009K] 12/31/2021 Obesity, Class II, BMI 35-39.9 [E66.9] 01/01/2022 Anemia [D64.9] 01/04/2022 Encounter Status:[facility]NSFRVW ) -------- BARBARAMARY Ibrahim ([id number]) 1960 M Date Time Provider Department 02/13/22 9:30 AM CHRISTY CAT NSFRVW During your visit today, we recorded the following information about you: Pulse Blood pressure Weight Height 71/minute 112/68 122.2 kg 1.753 m Christy Cat PA-C 02/13/2022 9:57 AM Signed SPINE SURGERY FOLLOW UP SERVICE DATE: 02/13/2022 SURGERY DATE: 12/31/21 Mary Jimenez is seen for 6 week post operative follow up. He is sp Revision L4-pelvis instrumented fusion, here for wound check. He states a nurse is coming to change his dressing daily while he is taking Bactrim. It is difficult for him to check the amount of drainage. No fevers or chills or symptoms of infection. PAIN EVALUATION 02/13/2022 0923 Pain Level: 8 Pain Location: Back-Lower legs Description: Aching Duration Units: Unknown Frequency: Intermittent Intervention/Comfort measure: Medication Patient Entered Questionnaires Spine Questions 01/14/2022 01/26/2022 02/07/2022 Pain Location: Lower back Lower back Leg Pain Duration: - - - Pain over last 6 months: - - - Symptoms from neck/cervical spine: No No No Employment Status: Disabled for reasons other than back pain - - Involved in law suit/legal claim: - - - Neck Questionnaires 10/02/2021 Benzel Modified SCARLETT Score Incomplete PROMIS Score Percentiles Physical Health 10/02/2021 12/04/2021 01/14/2022 Physical Function Percentile 0 73 0 Sleep Percentile 2 50 2 Fatigue Percentile 4 98 79 Pain Interference Percentile 0 0 0 PROMIS SOCIAL ROLE SCORE 10/02/2021 12/04/2021 01/14/2022 Social Role Satisfaction Percentile 1 1 1 PROMIS Global Health Scale 01/28/2021 08/07/2021 12/04/2021 Physical Health Percentile 1 4 7 Mental Health Percentile 1 13 3 Percentiles provide an indication of how the patient's score ranks in relation to the general population. Higher percentile rankings indicate better function/quality of life. 50th percentile is the average of the general population and indicates half of respondents had a worse score. Depression Screening: PHQ-9 12/04/2021 01/14/2022 02/07/2022 Score 9 10 10 PHQ-9 Self-harm Question 12/04/2021 01/14/2022 02/07/2022 Thoughts that you would be better off , or of hurting yourself in some way 0 0 0 PHQ-9 Self-Harm (Item 9) response options: 0 Not at all 1 Several days 2 More than half the days 3 Nearly every day PHQ-9 Levels: 0-4 No to mild depression 5-9 Mild depression 10-14 Moderate depression 15-19 Moderately severe depression 20-27 Severe depression PHYSICAL EXAM: BP 112/68 Pulse 71 Ht 175.3 cm (5' 9 ) Wt 122.2 kg (269 lb 8 oz) BMI 39.80 kg/m? GENERAL APPEARANCE: Well nourished, well developed, and no apparent distress. NEURO PSYCH: Patient oriented to person, place, and time. Mood pleasant. Benign affect. MUSCULOSKELETAL VISUAL INSPECTION CERVICAL: WNL THORACIC: WNL LUMBAR: There is no yellow slough tissue to debride. The center of the incision is beginning to scar. There is a circular keloid lesion in the center that looks healthy. Unable to express any drainage from the incision. Non-tender to palpation. The existing dressing has minimal drainage and was put on roughly 24 hours ago MOTOR: 5/5 in all muscle groups. DATA REVIEW No additional images reviewed today ASSESSMENT/PLAN (M43.16) Spondylolisthesis, lumbar region (primary encounter diagnosis) Mary Jimenez will continue with medical management of his/her condition. Medications: Continue taking Bactrim as directed until the prescription is finished. Continue daily dressing changes. Follow up: 3 weeks, can be virtual. Sooner if it starts to have drainage again. I spent a total of 25 minutes on the date of the service which included preparing to see the patient, [id number] patient care, completing clinical documentation, obtaining and/or reviewing separately obtained history, performing a medically appropriate examination, counseling and educating the patient/family/caregiver , and ordering medications, tests, or procedures. SIGNATURE: Christy Cat PA-C PATIENT NAME: Mary Prieto Barbara DATE: February 13, 2022 TIME: 9:50 AM PAGER: Referring Provider: JOSE RAY [[id number]] Allergies As of Date: 02/13/2022 Noted Allergy Reaction PENICILLINS 06/07/2014 10 - Anaphylaxis LATEX 09/04/2016 2 - Rash Date Reviewed: 02/13/2022 Reviewed by: Tammie Hall MA - Fully Assessed Reason for Visit: Established Patient [175] Cmt: Alteration in skin integrity related to surgical incision Primary Visit Diagnosis:Spondylolisthe sis, lumbar region [M43.16] Prescriptions as of 02/13/2022 - Pregabalin (LYRICA) 200 mg capsule Take 1 capsule by mouth three times daily for 90 days. - sulfamethoxazole-trimeth oprim (BACTRIM DS) 800-160 mg per tablet Take 1 tablet by mouth t (more content not included)... [facility] 02-10-2022 [facility] Telephone (NEADFV) -------- MARY JIMENEZ ([id number]) 1960 M Date Time Provider Department 02/10/22 EFFIE BELTRAN During your visit today, we recorded the following information about you: Mary Grace Torres [facility] 02/10/2022 12:22 PM Signed Received form from [facility] needing completion in [employer] for review. Effie Beltran PA-C 02/10/2022 3:27 PM Signed Form signed and sent back Allergies As of Date: 02/10/2022 Noted Allergy Reaction PENICILLINS 06/07/2014 10 - Anaphylaxis LATEX 09/04/2016 2 - Rash Date Reviewed: 02/04/2022 Reviewed by: Effie Beltran PA-C - Fully Assessed Reason for Visit: Forms [913] Prescriptions as of 02/10/2022 - sulfamethoxazole-trimeth oprim (BACTRIM DS) 800-160 mg per tablet Take 1 tablet by mouth twice daily for 14 days. - HYDROcodone-acetaminophe n (NORCO) 5-325 mg per tablet Take 1 tablet by mouth every 8 hours as needed for pain. - QUEtiapine (SEROQUEL) 25 mg tablet Take 1 tablet by mouth daily at bedtime. - clopidogrel (PLAVIX) 75 mg tablet Take 1 tablet by mouth once daily. Please hold this medication until post op day 10 - acetaminophen (TYLENOL) 500 mg tablet Take 2 tablets by mouth every 8 hours as needed for pain. - telmisartan (MICARDIS) 80 mg tablet Take 80 mg by mouth once daily. - Pregabalin (LYRICA) 200 mg capsule Take 1 capsule by mouth three times daily for 90 days. - QUEtiapine (SEROQUEL) 25 mg tablet Take 1 tablet by mouth twice daily as needed (Delirium) for up to 5 days. - docusate sodium (COLACE) 100 mg capsule Take 1 capsule by mouth twice daily. - docosahexaenoic acid/epa (FISH OIL ORAL) Take 5 capsules by mouth once daily. - fremanezumab-vfrm (AJOVY SYRINGE SUBCUTANEOUS) Inject 250 mg/mL subcutaneously. every 28 days for migraines - CHROMIUM PICOLINATE ORAL Take 800 mcg by mouth once daily. - MAGNESIUM ORAL Take 400 mg by mouth once daily. - finasteride (PROSCAR) 5 mg tablet Take 5 mg by mouth daily at bedtime. - CALCIUM CARBONATE/VITAMIN D3 (CALCIUM 600 + D ORAL) Take 1 tablet by mouth once daily. - LACTOBACILLUS ACIDOPHILUS (PROBIOTIC ACIDOPHILUS ORAL) Take 1 capsule by mouth once daily. - doxepin capsule 10 mg Take 10 mg by mouth daily at bedtime. Takes 2 tabs at bedtime - dicyclomine (BENTYL) 10 mg capsule Take 20 mg by mouth as needed. 4 times daily as needed - eletriptan (RELPAX) 40 mg tablet Take 40 mg by mouth as needed. may repeat in 2 hours if necessary - atorvastatin (LIPITOR) 80 mg tablet Take 80 mg by mouth daily at bedtime. - DULoxetine (CYMBALTA) 30 mg capsule Take 1 capsule by mouth once daily. Take with 60 mg for 90 mg total dose. - baclofen (LIORESAL) 20 mg tablet Take 20 mg by mouth daily at bedtime. - furosemide (LASIX) 40 mg tablet Take 40 mg by mouth once daily. - doxazosin (CARDURA) 4 mg tablet Take 4 mg by mouth once daily. - metoprolol succinate XL, long acting, (TOPROL XL) 50 mg 24 hr tablet Take 50 mg by mouth once daily. - cyanocobalamin (VITAMIN B-12) 1,000 mcg tab Take 1,000 mcg by mouth once daily. - fluticasone (FLONASE) 50 mcg/actuation nasal spray Use 2 Sprays in each nostril twice daily. Problem List As Of Date 02/10/2022 Noted Resolved Headache(784.0) [R51] 07/18/2014 08/18/2021 Adjustment disorder with anxious mood [F43.22] 07/18/2014 Chronic daily headache [R51.9] 07/18/2014 08/18/2021 Intractable chronic migraine without aura [G43.*07/18/2014 Chronic back pain [M54.9, G89.29] 07/18/2014 08/18/2021 Chronic pain syndrome [G89.4] 07/18/2014 Opioid dependence (HCC) [F11.20] 07/18/2014 Medication overuse headache [G44.40] 07/18/2014 08/18/2021 Opiate dependence (HCC) [F11.20] 10/20/2014 08/18/2021 Pseudoarthrosis of lumbar spine [S32.009K] 12/08/2014 08/18/2021 Sacroiliitis (HCC) [M46.1] 10/17/2015 08/18/2021 Secondary hypertension [I15.9] 08/07/2021 08/07/2021 Primary hypertension [I10] 08/07/2021 Cerebrovascular accident (CVA) due to thrombosi*08/07/2021 Spondylolisthesis, lumbar region [M43.16] 08/16/2021 Status post lumbar spinal fusion [Z98.1] 08/17/2021 Mixed hyperlipidemia [E78.2] 08/18/2021 BPH (benign prostatic hyperplasia) [N40.0] 08/18/2021 GERD (gastroesophageal reflux disease) [K21.9] 08/18/2021 CKD (chronic kidney disease) stage 3, GFR 30-59*08/18/2021 Post-operative infection [T81.40XA] 09/12/2021 Obesity [E66.9] 09/12/2021 Delirium [R41.0] 09/15/2021 Back pain [M54.9] 11/21/2021 Low back pain [M54.50] 11/21/2021 Weakness of left lower extremity [R29.898] 11/27/2021 Sleep apnea [G47.30] 12/17/2021 Lumbar pseudoarthrosis [S32.009K] 12/31/2021 Obesity, Class II, BMI 35-39.9 [E66.9] 01/01/2022 Anemia [D64.9] 01/04/2022 Encounter Status:Closed by EFFIE BELTRAN on 02/10/22 [facility] Creatinine and Glomerular fi ltration rate.predicted panel (S/P/Bld)Ordered By: NON STAFF on 02-07-2022 Creatinine [Mass/Vol] 1.63 mg/dL 0.64-1.27 [facility] Estimated glomerular filtrat ion rate (GFR) non- AmericanOrdered By: NON STAFF on 02-07-2022 GFR/1.73 sq M.predicted among non-blacks MDRD (S/P/Bld) [Vol rate/Area] 43 mL/Min [facility] No Panel InformationOrdered By: NON STAFF on 02-07-2022 Estimated GFR () 52 mL/Min [facility] Comment on above: GFR estimated refere nce range: According to KDOQI guidelines, <60 ml/min/1.73m2 is sufficient to diagnose a patient with chronic kidney disease. Pharmacy Creatinine Clearance (Chem N/A [facility] Serum or plasma calcium paula urement (mass/volume)Ordered By: NON STAFF on 02-07-2022 Calcium [Mass/Vol] 8.7 mg/dL 8.2-10.2 [facility] Serum or plasma chloride miriam surement (moles/volume)Ordered By: NON STAFF on 02-07-2022 Chloride [Moles/Vol] 100 mmol/L 95-114 [facility] Serum or plasma glucose paula urement (mass/volume)Ordered By: NON STAFF on 02-07-2022 Glucose [Mass/Vol] 92 mg/dL 70-100 [facility] Comment on above: ADA recommended refe rence range Random Glucose Reference Range is dependent on time and content of last meal. Glucose of more than 200 mg/dL in a nonstressed, ambulatory subject supports the diagnosis of Diabetes Mellitus. Serum or plasma potassium me asurement (moles/volume)Ordered By: NON STAFF on 02-07-2022 Potassium [Moles/Vol] 4.6 mmol/L 3.5-5.1 [facility] Serum or plasma sodium measu rement (moles/volume)Ordered By: NON STAFF on 02-07-2022 Sodium [Moles/Vol] 135 mmol/L 136-146 [facility] Serum or plasma total carbon dioxide measurement (moles/volume)Ordered By: NON STAFF on 02-07-2022 CO2 [Moles/Vol] 25.7 mmol/L 22.0-30.0 [facility] Serum or plasma urea nitroge n measurement (mass/volume)Ordered By: NON STAFF on 02-07-2022 Urea nitrogen [Mass/Vol] 22 mg/dL 9-23 [facility] Bacteria Wnd Culton 01-31-20 22 Bacteria identified Cx Nom (Wound) ORGANISM ID: 1 Few Proteus mirabilis ORGANISM ID: 2 Rare Methicillin resistant Staphylococcus aureus ORGANISM ID: 3 Rare Enterococcus faecalis No further workup GRAM STAIN: No organisms seen No Polymorphonuclear Leukocytes ORGANISM ID: 1 (PROTEUS MIRABILIS) ANTIBIOTIC INTERPRETATION REBA STATUS REFERENCE RANGE Ampicillin S <=2 F Susceptible <=8 , Intermediate >8 , Resistant >16 Ampicillin/Sulbact S <=2 F Susceptible <=8 , Intermediate >8 , Resistant >16 Cefepime S <=1 F Susceptible <=2 , Intermediate >2 , Resistant >=16 Ceftriaxone S <=1 F Susceptible <=1 , Intermediate >1 , Resistant >=4 Ciprofloxacin R 2 F Susceptible <0.5 , Intermediate >=.5 , Resistant >=1 Ertapenem S <=0.5 F Susceptible <=0.5 , Intermediate >.5 , Resistant >1 Gentamicin S <=1 F Susceptible <=4 , Intermediate >4 , Resistant >8 Meropenem S <=0.25 F Susceptible <=1 , Intermediate >1 , Resistant >2 Piperacillin/Tazobac S <=4 F Susceptible <=16 , Intermediate >16 , Resistant >64 Tobramycin S <=1 F Susceptible <=4 , Intermediate >4 , Resistant >8 Trimeth sulfameth S <=20 F Susceptible <=40 , Resistant >40 ORGANISM ID: 2 (METHICILLIN RESISTANT STAPHYLOCOCCUS AUREUS) ANTIBIOTIC INTERPRETATION REBA STATUS REFERENCE RANGE Clindamycin R >=4 F Susceptible <=0.5 , Intermediate >.5 , Resistant >2 Daptomycin S 0.25 F Susceptible <=1 , Nonsusceptible >1 Doxycycline I 8 F Susceptible <=4 , Intermediate >4 , Resistant >8 Erythromycin R >=8 F Susceptible <=0.5 , Intermediate >.5 , Resistant >4 Gentamicin S <=0.5 F Susceptible <=4 , Intermediate >4 , Resistant >8 Levofloxacin R >=8 F Susceptible <=1 , Intermediate >1 , Resistant >2 Linezolid S 2 F Susceptible <=4 , Resistant >4 Oxacillin R >=4 F Susceptible <=2 , Resistant >2 Oxacillin resistant Staphylococci are resistant to all beta-lactam antibiotics (except new cephalosporins with anti-MRSA activity i.e. ceftaroline) Rifampin S <=0.5 F Susceptible <=1 , Intermediate >1 , Resistant >2 Rifampin should not be used alone for antimicrobial therapy. Tetracycline R >=16 F Susceptible <=4 , Intermediate >4 , Resistant >8 Trimeth sulfameth S <=10 F Susceptible <=40 , Resistant >40 Vancomycin S <=0.5 F Susceptible <=2 , Intermediate >2 , Resistant >8 Abnormal [facility] Comment on above: Performed By: #### 6 462-6 ####[facility] [id number] [address] OF [facility] C-REACTIVE PROTEIN (CRP)on 0 01-30-2022 CRP [Mass/Vol] mg/L <0.9 mg/dL [facility] CBC W Auto Differential pane l (Bld)on 01-30-2022 Basophils (Bld) [#/Vol] 0.03 10*3/uL Normal <0.11 [facility] Comment on above: Order Comment: Speci men Type: BLOOD SPECIMENOrdering Facility: [facility] Address: [address] [address] Performed By: #### 5 7021-8 ####[facility]ORY[facility] [id number] [address] [place] Basophils/100 WBC (Bld) 0.5 % Normal [facility] Comment on above: Order Comment: Speci men Type: BLOOD SPECIMENOrdering Facility: [facility] Address: [address] [place] [address] Performed By: #### 5 7021-8 ####[facility]ORYCLIA [id number] [address] Differential cell count method Nom (Bld) Auto Normal [facility] Comment on above: Order Comment: Speci men Type: BLOOD SPECIMENOrdering Facility: [facility] Address: [address] [place] [address] Performed By: #### 5 7021-8 ####[facility]ORYCLIA [id number] [address] [place] Eosinophils (Bld) [#/Vol] 0.30 10*3/uL Normal <0.46 [facility] Comment on above: Order Comment: Speci men Type: BLOOD SPECIMENOrdering Facility: [facility] Address: [address] [place] [address] Performed By: #### 5 7021-8 ####[facility]ORYCLIA [id number] [address] Eosinophils/100 WBC (Bld) 5.4 % Normal [facility] Comment on above: Order Comment: Speci men Type: BLOOD SPECIMENOrdering Facility: [facility] Address: [address] [place] [address] Performed By: #### 5 7021-8 ####[facility]ORATORYCLIA [id number] [address] Erythrocyte distribution width (RBC) [Ratio] 14.3 % Normal 11.5-15.0 [facility] Comment on above: Order Comment: Speci men Type: BLOOD SPECIMENOrdering Facility: [facility] Address: [address] [place] [address] Performed By: #### 5 7021-8 ####[facility]ORY[facility] [id number] [address] Hematocrit (Bld) [Volume fraction] 34.0 % Low 39.0-51.0 [facility] Comment on above: Order Comment: Speci men Type: BLOOD SPECIMENOrdering Facility: [facility] Address: [address] [place] [address] Performed By: #### 5 7021-8 ####[facility] [id number] [address] Hemoglobin (Bld) [Mass/Vol] 10.5 g/dL Low 13.0-17.0 [facility] Comment on above: Order Comment: Speci men Type: BLOOD SPECIMENOrdering Facility: [facility] Address: [address] [place] [address] Performed By: #### 5 7021-8 ####[facility] LABORATORYIA [id number] [address] IMMATURE GRAN % 0.2 % Normal [facility] Comment on above: Order Comment: Speci men Type: BLOOD SPECIMENOrdering Facility: [facility] Address: [address] [place] [address] Performed By: #### 5 7021-8 ####[facility]ORY[facility] [id number] [address] IMMATURE GRAN ABS <0.03 Normal <0.10 [facility] Comment on above: Order Comment: Speci men Type: BLOOD SPECIMENOrdering Facility: [facility] Address: [address] [place] [address] Performed By: #### 5 7021-8 ####[facility]ORY[facility] [id number] [address] Lymphocytes (Bld) [#/Vol] 1.08 10*3/uL Normal 1.00-4.00 [facility] Comment on above: Order Comment: Speci men Type: BLOOD SPECIMENOrdering Facility: [facility] Address: [address] [place] [address] Performed By: #### 5 7021-8 ####[facility]ATORYCLIA [id number] [address] Lymphocytes/100 WBC (Bld) 19.6 % Normal [facility] Comment on above: Order Comment: Speci men Type: BLOOD SPECIMENOrdering Facility: [facility] Address: [address] [place] [address] Performed By: #### 5 7021-8 ####[facility]ORATORYCLIA [id number] [address] [place] MCH (RBC) [Entitic mass] 25.7 pg Low 26.0-34.0 [facility] Comment on above: Order Comment: Speci men Type: BLOOD SPECIMENOrdering Facility: [facility] Address: [address] [place] [address] Performed By: #### 5 7021-8 ####[facility]ORATORYCLIA [id number] [address] [place] MCHC (RBC) [Mass/Vol] 30.9 g/dL Normal 30.5-36.0 [facility] Comment on above: Order Comment: Speci men Type: BLOOD SPECIMENOrdering Facility: [facility] Address: [address] [place] [address] Performed By: #### 5 7021-8 ####[facility]ORY[facility] [id number] [address] [place] MCV (RBC) [Entitic vol] 83.1 fL Normal 80.0-100.0 [facility] Comment on above: Order Comment: Speci men Type: BLOOD SPECIMENOrdering Facility: [facility] Address: [address] [place] [address] Performed By: #### 5 7021-8 ####[facility]ORYCLIA [id number] [address] [place] Monocytes (Bld) [#/Vol] 0.61 10*3/uL Normal <0.87 [facility] Comment on above: Order Comment: Speci men Type: BLOOD SPECIMENOrdering Facility: [facility] Address: [address] [place] [address] Performed By: #### 5 7021-8 ####[facility]ORATORYCLIA [id number] [place] [address] [place] Monocytes/100 WBC (Bld) 11.1 % Normal [facility] Comment on above: Order Comment: Speci men Type: BLOOD SPECIMENOrdering Facility: [facility] Address: [address] [place] [address] Performed By: #### 5 7021-8 ####[facility]ORATORYCLIA [id number] [place] [address] [place] Neutrophils (Bld) [#/Vol] 3.49 10*3/uL Normal 1.45-7.50 [facility] Comment on above: Order Comment: Speci men Type: BLOOD SPECIMENOrdering Facility: [facility] Address: [address] [place] [address] Performed By: #### 5 7021-8 ####[facility]ORATORYCLIA [id number] [place] [address] [place] Neutrophils/100 WBC (Bld) 63.2 % Normal [facility] Comment on above: Order Comment: Speci men Type: BLOOD SPECIMENOrdering Facility: [facility] Address: [address] [place] [address] Performed By: #### 5 7021-8 ####[facility]ATORYCLIA [id number] [place] [address] [place] Nucleated RBC (Bld) [#/Vol] 10*3/uL Normal <0.01 [facility] Comment on above: Order Comment: Speci men Type: BLOOD SPECIMENOrdering Facility: [facility] Address: [address] [place] [address] Performed By: #### 5 7021-8 ####[facility]ORATORYCLIA [id number] [place] [address] [place] Nucleated RBC/100 WBC (Bld) [Ratio] 0.0 /100 WBC Normal [facility] Comment on above: Order Comment: Speci men Type: BLOOD SPECIMENOrdering Facility: [facility] Address: [address] [place] [address] Performed By: #### 5 7021-8 ####[facility] LABORATORYCLIA [id number] [place] [id number] [place] Platelet mean volume (Bld) [Entitic vol] 11.5 fL Normal 9.0-12.7 [facility] Comment on above: Order Comment: Speci men Type: BLOOD SPECIMENOrdering Facility: [facility] Address: [address] [place] [address] Performed By: #### 5 7021-8 ####[facility]ORATORYCLIA [id number] [place] [address] [place] Platelets (Bld) [#/Vol] 236 10*3/uL Normal 150-400 [facility] Comment on above: Order Comment: Speci men Type: BLOOD SPECIMENOrdering Facility: [facility] Address: [address] [place] [address] Performed By: #### 5 7021-8 ####[facility]ORATORYCLIA [id number] [place] [address] [place] RBC (Bld) [#/Vol] 4.09 10*6/uL Low 4.20-6.00 [facility] Comment on above: Order Comment: Speci men Type: BLOOD SPECIMENOrdering Facility: [facility] Address: [address] [place], [place] [address] Performed By: #### 5 7021-8 ####[facility]ORATORYCLIA [id number] [place] [id number] [place] WBC (Bld) [#/Vol] 5.52 10*3/uL Normal 3.70-11.00 [facility] Comment on above: Order Comment: Speci men Type: BLOOD SPECIMENOrdering Facility: [facility] Address: [address] [place], [place] [address] Performed By: #### 5 7021-8 ####[facility]ATORYIA [id number] [address] OF [facility] Abs Immature Gran <0.03 <0.10 k/uL [facility] Basophils (Bld) [#/Vol] 0.03 10*3/uL <0.11 k/uL [facility] Basophils/100 WBC (Bld) 0.5 % [facility] Differential cell count method Nom (Bld) Auto [facility] Eosinophils (Bld) [#/Vol] 0.30 10*3/uL <0.46 k/uL [facility] Eosinophils/100 WBC (Bld) 5.4 % [facility] Erythrocyte distribution width (RBC) [Ratio] 14.3 % 11.5 - 15.0 % [facility] Hematocrit (Bld) [Volume fraction] 34.0 % Low 39.0 - 51.0 % [facility] Hemoglobin (Bld) [Mass/Vol] 10.5 g/dL Low 13.0 - 17.0 g/dL [facility] Immature Gran % 0.2 % [facility] Lymphocytes (Bld) [#/Vol] 1.08 10*3/uL 1.00 - 4.00 k/uL [facility] Lymphocytes/100 WBC (Bld) 19.6 % [facility] MCH (RBC) [Entitic mass] 25.7 pg Low 26.0 - 34.0 pg [facility] MCHC (RBC) [Mass/Vol] 30.9 g/dL 30.5 - 36.0 g/dL [facility] MCV (RBC) [Entitic vol] 83.1 fL 80.0 - 100.0 fL [facility] Monocytes (Bld) [#/Vol] 0.61 10*3/uL <0.87 k/uL [facility] Monocytes/100 WBC (Bld) 11.1 % [facility] Neutrophils (Bld) [#/Vol] 3.49 10*3/uL 1.45 - 7.50 k/uL [facility] Neutrophils/100 WBC (Bld) 63.2 % [facility] Nucleated RBC (Bld) [#/Vol] 10*3/uL <0.01 k/uL [facility] Nucleated RBC/100 WBC (Bld) [Ratio] 0.0 /100 WBC [facility] Platelet mean volume (Bld) [Entitic vol] 11.5 fL 9.0 - 12.7 fL [facility] Platelets (Bld) [#/Vol] 236 10*3/uL 150 - 400 k/uL [facility] RBC (Bld) [#/Vol] 4.09 10*6/uL Low 4.20 - 6.0 0 m/uL [facility] WBC (Bld) [#/Vol] 5.52 10*3/uL 3.70 - 11.00 k/uL [facility] CNOVon 01-30-2022 CNOV Office Visit (NSFRVW ) -------- MARY JIMENEZ ([id number]) 1960 Date Time Provider Department 01/30/22 11:30 AM EFFIE BELTRAN NSFRVW During your visit today, we recorded the following information about you: Pulse Blood pressure Weight Height 76/minute 128/45 117.5 kg 1.765 m Tammie Hall MA 01/30/2022 9:11 PM Signed Rosalina Beltran PA-C 01/30/2022 9:11 PM Signed SPINE SURGERY FOLLOW UP SERVICE DATE: 01/30/2022 SURGERY DATE: 12/31/21 Mary Easleyt is seen for 1 month post operative follow up. He is sp Revision L4-pelvis instrumented fusion, here for wound check. He has had drainage from his incision for the past week. Denies fever, chills, or incisional pain. He continues to have LLE pain, improves with norco TID. He lives alone and is not able to change his own dressing given surgical site is in lumbar spine. PAIN EVALUATION 01/30/2022 1126 Pain Level: 6 Pain Location: Back-Lower Description: Shooting Duration Units: Unknown Frequency: Intermittent standing and setting is continuous Intervention/Comfort measure: Medication Patient Entered Questionnaires Spine Questions 12/04/2021 01/14/2022 01/26/2022 Pain Location: Leg Lower back Lower back Pain Duration: - - - Pain over last 6 months: - - - Symptoms from neck/cervical spine: No No No Employment Status: - Disabled for reasons other than back pain - Involved in law suit/legal claim: - - - Neck Questionnaires 10/02/2021 Benzel Modified SCARLETT Score Incomplete PROMIS Score Percentiles Physical Health 10/02/2021 12/04/2021 01/14/2022 Physical Function Percentile 0 73 0 Sleep Percentile 2 50 2 Fatigue Percentile 4 98 79 Pain Interference Percentile 0 0 0 PROMIS SOCIAL ROLE SCORE 10/02/2021 12/04/2021 01/14/2022 Social Role Satisfaction Percentile 1 1 1 PROMIS Global Health Scale 01/28/2021 08/07/2021 12/04/2021 Physical Health Percentile 1 4 7 Mental Health Percentile 1 13 3 Percentiles provide an indication of how the patient's score ranks in relation to the general population. Higher percentile rankings indicate better function/quality of life. 50th percentile is the average of the general population and indicates half of respondents had a worse score. Depression Screening: PHQ-9 10/02/2021 12/04/2021 01/14/2022 Score 14 9 10 PHQ-9 Self-harm Question 10/02/2021 12/04/2021 01/14/2022 Thoughts that you would be better off , or of hurting yourself in some way 0 0 0 PHQ-9 Self-Harm (Item 9) response options: 0 Not at all 1 Several days 2 More than half the days 3 Nearly every day PHQ-9 Levels: 0-4 No to mild depression 5-9 Mild depression 10-14 Moderate depression 15-19 Moderately severe depression 20-27 Severe depression PHYSICAL EXAM: BP (!) 128/45 (BP Site: Right Arm, BP Position: Supine, BP Cuff Size: Regular Adult) Pulse 76 Ht 176.5 cm (5' 9.5 ) Wt 117.5 kg (259 lb) BMI 37.70 kg/m? GENERAL APPEARANCE: Well nourished, well developed, and no apparent distress. Appears comfortable. NEURO PSYCH: Patient oriented to person, place, and time. Mood pleasant. Benign affect. MUSCULOSKELETAL VISUAL INSPECTION CERVICAL: WNL THORACIC: WNL LUMBAR: See picture of incision uploaded today. No tenderness around incision to deep palpation. Difficult to express drainage with palpation, although there is clear yellow/red drainage that seems to be coming from the granulation tissue in center of keloid MOTOR: strength 5/5 in BLE Reviewed picture of incision with Dr Steele who recommends debriding yellow slough and starting doxycycline. DATA REVIEW [facility] records independently reviewed Imaging and outside records independently reviewed ASSESSMENT/PLAN Patient presents with concerns of wound drainage. Pictured uploaded. Does not appear infected, but wound cultures were taken today. Slough material removed from around the granular tissue. CBC and CRP ordered and resulted; WBC and CRP WNL. 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 He currently has home PT, will send request for nurse to come daily for dressing changes. Discussed changing the dressing to ABD and tape daily and prn. He also continues to have left lower extremity pain. We discussed CT lumbar spine in the future around 6-8 weeks post op if symptoms fail to improve. 1. Follow up: Two weeks or sooner if needed. I spent a total of 45 minutes on the date of the service which included preparing to see the patient, [id number] patient care, completing clinical documentation, obtaining and/or reviewing separately obtained history, performing a medically appropriate examination, counseling and educating the patient/family/caregiver , ordering medications, tests, or procedures, communicating with other HCPs (not separately reported), independently interpreting results (not separately reported) and communicating results to the patient/fami (more content not included)... Normal [facility] CRP SerPl-mCncon 01-30-2022 CRP [Mass/Vol] mg/L Normal <0.9 [facility] Comment on above: Order Comment: Speci men Type: BLOOD SPECIMEN [facility] Address: [address] [place] [address] Performed By: #### 1 988-5 #### [facility] CLIA [id number] [address] [place] [address] [place] CNPNery 01-22-2022 CNPN Telephone (NEADFV) -------- BARBARAMARY ([id number]) 1960 M Date Time Provider Department 01/22/22 LOYDA STEELE During your visit today, we recorded the following information about you: Samantha Alonzo 01/22/2022 4:09 PM Signed Patient called today. He had surgery on 12/31/21. States that he had chills two days ago, nothing yesterday. Patient states that he has chills again today and his incision was leaking approximately six inches long and two inches wide with fluid. He does not have a thermometer so he is unable to tell if he has a fever, but said that he does not feel hot. [phone] Greta Nunez RN 01/22/2022 4:11 PM Signed Will forward for review. Sandra Mcallister 01/23/2022 10:21 AM Signed Patient wants to send photo's of his incision to the doctor or PA. Please call him with the correct phone number to send photo's to. Call patient at the following number . Ok to leave voicemail with the phone number info. Taylor Cardenas PA-C 01/23/2022 10:40 AM Signed Called patient and requested call back. Can have picture sent to higher education administrator PA phone Taylor Cardenas PA-C 01/23/2022 4:17 PM Addendum Called patient to discuss new symptoms Reviewed photo of incision Patient having some drainage at incision site intermittently since post op, more since parag removed last week. Reports it has not slowed down. Reports some chills over the last two days but no fever. Drainage is clear/yellow fluid. Incision site is non TTP. No erythema. Low suspicion for infection Instructed to continue covering incision Monitor if symptoms worsen Added to PA clinic next week for incision check Patient to call sooner if symptoms worsen Refill [place] sent Taylor Cardenas PA-C 01/23/2022 4:19 PM Signed Addended by: TAYLOR CARDENAS on: 01/23/2022 04:19 PM Modules accepted: Orders Allergies As of Date: 01/22/2022 Noted Allergy Reaction PENICILLINS 06/07/2014 10 - Anaphylaxis LATEX 09/04/2016 2 - Rash Date Reviewed: 01/15/2022 Reviewed by: Shiela Ervin MA - Fully Assessed Reason for Visit: Post op complications [2636] Visit Diagnosis:Radiculopathy, lumbar region [M54.16] Order(s):HYDROcodone-lobo taminophen (NORCO) 5-325 mg per tabletTake 1 tablet by mouth every 8 hours as needed for pain.Disp: 35 tabletRfl: 0 Prescriptions as of 01/23/2022 - HYDROcodone-acetaminophe n (NORCO) 5-325 mg per tablet Take 1 tablet by mouth every 8 hours as needed for pain. - QUEtiapine (SEROQUEL) 25 mg tablet Take 1 tablet by mouth daily at bedtime. - clopidogrel (PLAVIX) 75 mg tablet Take 1 tablet by mouth once daily. Please hold this medication until post op day 10 - acetaminophen (TYLENOL) 500 mg tablet Take 2 tablets by mouth every 8 hours as needed for pain. - telmisartan (MICARDIS) 80 mg tablet Take 80 mg by mouth once daily. - Pregabalin (LYRICA) 200 mg capsule Take 1 capsule by mouth three times daily for 90 days. - QUEtiapine (SEROQUEL) 25 mg tablet Take 1 tablet by mouth twice daily as needed (Delirium) for up to 5 days. - docusate sodium (COLACE) 100 mg capsule Take 1 capsule by mouth twice daily. - docosahexaenoic acid/epa (FISH OIL ORAL) Take 5 capsules by mouth once daily. - fremanezumab-vfrm (AJOVY SYRINGE SUBCUTANEOUS) Inject 250 mg/mL subcutaneously. every 28 days for migraines - CHROMIUM PICOLINATE ORAL Take 800 mcg by mouth once daily. - MAGNESIUM ORAL Take 400 mg by mouth once daily. - finasteride (PROSCAR) 5 mg tablet Take 5 mg by mouth daily at bedtime. - CALCIUM CARBONATE/VITAMIN D3 (CALCIUM 600 + D ORAL) Take 1 tablet by mouth once daily. - LACTOBACILLUS ACIDOPHILUS (PROBIOTIC ACIDOPHILUS ORAL) Take 1 capsule by mouth once daily. - doxepin capsule 10 mg Take 10 mg by mouth daily at bedtime. Takes 2 tabs at bedtime - dicyclomine (BENTYL) 10 mg capsule Take 20 mg by mouth as needed. 4 times daily as needed - eletriptan (RELPAX) 40 mg tablet Take 40 mg by mouth as needed. may repeat in 2 hours if necessary - atorvastatin (LIPITOR) 80 mg tablet Take 80 mg by mouth daily at bedtime. - DULoxetine (CYMBALTA) 30 mg capsule Take 1 capsule by mouth once daily. Take with 60 mg for 90 mg total dose. - baclofen (LIORESAL) 20 mg tablet Take 20 mg by mouth daily at bedtime. - furosemide (LASIX) 40 mg tablet Take 40 mg by mouth once daily. - doxazosin (CARDURA) 4 mg tablet Take 4 mg by mouth once daily. - metoprolol succinate XL, long acting, (TOPROL XL) 50 mg 24 hr tablet Take 50 mg by mouth once daily. - cyanocobalamin (VITAMIN B-12) 1,000 mcg tab Take 1,000 mcg by mouth once daily. - fluticasone (FLONASE) 50 mcg/actuation nasal spray Use 2 Sprays in each nostril twice daily. Problem List As Of Date 01/22/2022 Noted Resolved Headache(784.0) [R51] 07/18/2014 08/18/2021 Adjustment disorder with anxious mood [F43.22] 07/18/2014 Chronic daily headache [R (more content not included)... Normal [facility] HEALTHon 01-15-2022 ALLIED HEALTH HNO ID: [id number] Author: RT Alvin(R) Service: Radiology Author Type: Technologist Type: Allied Health Filed: 01/15/2022 12:59 PM Note Text: Radiology Service Progress Note PATIENT NAME: Mary Jimenez DATE OF SERVICE: January 15, 2022 TIME: 12:59 PM PATIENT IDENTITY VERIFICATION COMPLETED USING TWO (2) IDENTIFIERS: Name and Date of confirmed by patient verbally. FALL SCREENING: Has the patient had 2 falls in the last year or 1 fall with injury or currently using an Ambulatory Assistive Device (Walker, Cane, Wheelchair, Crutches, etc.)? Inpatient: Screened on floor PATIENT GENDER DATA: Male PATIENT RELEVANT IMPLANT DATA REVIEWED: Not Applicable RADIOLOGY DEPARTMENT: General X-ray: Exam(s) Completed: Spine X-Ray(s): Lumbar AP / LAT PERIPHERAL IV DATA: Not applicable SIGNED BY: Caroline Silva Surekha RT(R) January 15, 2022 12:59 PM [facility]NS[facility] ) -------- MARY JIMENEZ ([id number]) 1960 M Date Time Provider Department 01/15/22 11:20 AM LOYDA STEELE NSFRVW During your visit today, we recorded the following information about you: Pulse Blood pressure Height 82/minute 129/68 1.765 m Loyda Steele MD 01/17/2022 11:45 AM Signed SPINE SURGERY FOLLOW UP SERVICE DATE: 01/15/2022 SURGERY DATE: 08/16/21, 09/12/21 and 12/31/2021 S/p Revision L4-pelvis instrumented fusion Mary Jimenez is seen for 2 week post operative follow up. Overall patient doing well. He does report some recurrence of his preoperative symptoms. Otherwise has been more mobile. No major concerns. ANTIPLATELET OR ANTICOAGULATION STATUS: No Patient Entered Questionnaires Spine Questions 10/05/2021 12/04/2021 01/14/2022 Pain Location: - Leg Lower back Pain Duration: - - - Pain over last 6 months: - - - Symptoms from neck/cervical spine: No No No Employment Status: - - Disabled for reasons other than back pain Involved in law suit/legal claim: - - - Neck Questionnaires 10/02/2021 Benzel Modified SCARLETT Score Incomplete PROMIS Score Percentiles Physical Health 10/02/2021 12/04/2021 01/14/2022 Physical Function Percentile 0 73 0 Sleep Percentile 2 50 2 Fatigue Percentile 4 98 79 Pain Interference Percentile 0 0 0 PROMIS SOCIAL ROLE SCORE 10/02/2021 12/04/2021 01/14/2022 Social Role Satisfaction Percentile 1 1 1 PROMIS Global Health Scale 01/28/2021 08/07/2021 12/04/2021 Physical Health Percentile 1 4 7 Mental Health Percentile 1 13 3 Percentiles provide an indication of how the patient's score ranks in relation to the general population. Higher percentile rankings indicate better function/quality of life. 50th percentile is the average of the general population and indicates half of respondents had a worse score. Depression Screening: PHQ-9 10/02/2021 12/04/2021 01/14/2022 Score 14 9 10 PHQ-9 Self-harm Question 10/02/2021 12/04/2021 01/14/2022 Thoughts that you would be better off , or of hurting yourself in some way 0 0 0 PHQ-9 Self-Harm (Item 9) response options: 0 Not at all 1 Several days 2 More than half the days 3 Nearly every day PHQ-9 Levels: 0-4 No to mild depression 5-9 Mild depression 10-14 Moderate depression 15-19 Moderately severe depression 20-27 Severe depression PHYSICAL EXAM: BP 129/68 Pulse 82 Ht 176.5 cm (5' 9.5 ) BMI 37.70 kg/m? Oriented x3 PERRL FS Motor: UE D 5/5, B 5/5, T 5/5, G 5/5, HI 5/5 LE HF 5/5, KE 5/5, DF 5/5, PF 5/5, EHL 5/5 Incision C/D/I DATA REVIEW No additional images reviewed today ASSESSMENT/PLAN (M54.16) Radiculopathy, lumbar region (primary encounter diagnosis) 1. Posen ordered 2. Seroquel ordered 3. XR lumbar ordered 4. Follow up: 4 weeks SIGNATURE: Loyda Steele MD PATIENT NAME: Mary Jimenez DATE: January 15, 2022 TIME: 3:08 PM PAGER: Referring Provider: JOSE RAY [[id number]] Allergies As of Date: 01/15/2022 Noted Allergy Reaction PENICILLINS 06/07/2014 10 - Anaphylaxis LATEX 09/04/2016 2 - Rash Date Reviewed: 01/15/2022 Reviewed by: Shiela Ervin MA - Fully Assessed Reason for Visit: Post Op [174] Primary Visit Diagnosis:Radiculopathy, lumbar region [M54.16] Order(s):XR LUMBAR LIMITED 2V AP/LAT [[id number]] Order #: [id number] FUTURE HYDROcodone-acetaminophe n (NORCO) 5-325 mg per tabletTake 1 tablet by mouth every 8 hours as needed for pain.Disp: 42 tabletRfl: 0 QUEtiapine (SEROQUEL) 25 mg tabletTake 1 tablet by mouth daily at bedtime.Disp: 30 tabletRfl: 0 Prescriptions as of 01/17/2022 - HYDROcodone-acetaminophe n (NORCO) 5-325 mg per tablet Take 1 tablet by mouth every 8 hours as needed for pain. - QUEtiapine (SEROQUEL) 25 mg tablet Take 1 tablet by mouth daily at bedtime. - clopidogrel (PLAVIX) 75 mg tablet Take 1 tablet by mouth once daily. Please hold this medication until post op day 10 - acetaminophen (TYLENOL) 500 mg tablet Take 2 tablets by mouth every 8 hours as needed for pain. - telmisartan (MICARDIS) 80 mg tablet Take 80 mg by mouth once daily. - Pregabalin (LYRICA) 200 mg capsule Take 1 capsule by mouth three times daily for 90 days. - QUEtiapine (SEROQUEL) 25 mg tablet Take 1 tablet by mouth twice daily as needed (Delirium) for up to 5 days. - docusate sodium (COLACE) 100 mg capsule Take 1 capsule by mouth twice daily. - docosahexaenoic acid/epa (FISH OIL ORAL) Take 5 capsules by mouth once daily. - fremanezumab-vfrm (AJOVY SYRINGE SUBCUTANEOUS) Inject 250 mg/mL subcutaneously. every 28 days for migraines - CHROMIUM PICOLINATE ORAL Take 800 mcg by mouth once daily. - MAGNESIUM ORAL Take 400 mg by mouth once daily. - finasteride (PROSCAR) 5 mg tablet Take 5 mg by mouth daily at bedtime. - CALCIUM CARBONATE/VITAMIN D3 (CALCIUM 600 + D ORAL) Take 1 tablet by mouth once daily. - L (more content not included)... Normal [facility] XR LUMBAR 2V AP/LATon 07-20- 2022 XR LUMBAR 2V AP/LAT * * *Final Report* * * DATE OF EXAM: Jan 15 2022 12:35PM FVX 5229 - XR LUMBAR 2V AP/LAT / PROCEDURE REASON: Radiculopathy, lumbar region * * * * Physician Interpretation * * * * LUMBAR SPINE RADIOGRAPHS HISTORY: Radiculopathy, lumbar region TECHNIQUE: 2 views of the lumbar spine are submitted. COMPARISON: 01/03/2022 Counting reference: Lumbosacral junction. For the purposes of this report, Upper L4 is considered the level of the iliac crest and there are 5 lumbar-type vertebrae. Anatomic Variants: None. Post-op assessment: Status post revision posterior decompression and instrumented fusion now extending from L4 to the ileum with LEFT transpedicular screw at L4, bilateral transpedicular screws at L5 and S1, bilateral trans-sacroiliac joint screws with interconnecting rods. Interbody cage at L5-S1. Anterior interbody fusion L4-L5 with interbody graft and screws. Hardware is intact. A drain is present. Overlying surgical parag. Degenerative device in the dorsal lumbar soft tissues. Alignment: Alignment is satisfactory. Vertebral bodies: Vertebral body heights are maintained. Spine articulations: Interbody cage at L5-S1 and interbody graft at L4-L5. Remainder of the disc spaces are maintained. IMPRESSION: Postoperative changes. Senior Informatica Developer: OLI Transcribe Date/Time: Jan 17 2022 8:43A Dictated by : CLIFFORD HAHN MD This examination was interpreted and the report reviewed and electronically signed by: CLIFFORD HAHN MD on Jan 17 2022 9:11AM EST [id number] [facility] MARY JIMENEZ ([id number]) 1960 M Date Time Provider Department 01/07/22 FREDI RANDLE During your visit today, we recorded the following information about you: Gustavojamie Randle PSS 01/07/2022 8:45 AM Signed Thank you for your referral for patient, but patient active with [facility]. I will cancel referral for [facility]. Allergies As of Date: 01/07/2022 Noted Allergy Reaction PENICILLINS 06/07/2014 10 - Anaphylaxis LATEX 09/04/2016 2 - Rash Date Reviewed: 01/04/2022 Reviewed by: Aislinn Wilkins RN - Fully Assessed Reason for Visit: Home Care [4073] Prescriptions as of 01/07/2022 - clopidogrel (PLAVIX) 75 mg tablet Take 1 tablet by mouth once daily. Please hold this medication until post op day 10 - oxyCODONE IR (ROXICODONE) 5 mg immediate release tablet Take 1-2 tablets by mouth every 6 hours as needed for up to 7 days. - acetaminophen (TYLENOL) 500 mg tablet Take 2 tablets by mouth every 8 hours as needed for pain. - clindamycin (CLEOCIN) 300 mg capsule Take 3 capsules by mouth every 8 hours for 3 days. - telmisartan (MICARDIS) 80 mg tablet Take 80 mg by mouth once daily. - Pregabalin (LYRICA) 200 mg capsule Take 1 capsule by mouth three times daily for 90 days. - QUEtiapine (SEROQUEL) 25 mg tablet Take 1 tablet by mouth twice daily as needed (Delirium) for up to 5 days. - docusate sodium (COLACE) 100 mg capsule Take 1 capsule by mouth twice daily. - docosahexaenoic acid/epa (FISH OIL ORAL) Take 5 capsules by mouth once daily. - fremanezumab-vfrm (AJOVY SYRINGE SUBCUTANEOUS) Inject 250 mg/mL subcutaneously. every 28 days for migraines - CHROMIUM PICOLINATE ORAL Take 800 mcg by mouth once daily. - MAGNESIUM ORAL Take 400 mg by mouth once daily. - finasteride (PROSCAR) 5 mg tablet Take 5 mg by mouth daily at bedtime. - CALCIUM CARBONATE/VITAMIN D3 (CALCIUM 600 + D ORAL) Take 1 tablet by mouth once daily. - LACTOBACILLUS ACIDOPHILUS (PROBIOTIC ACIDOPHILUS ORAL) Take 1 capsule by mouth once daily. - doxepin capsule 10 mg Take 10 mg by mouth daily at bedtime. Takes 2 tabs at bedtime - dicyclomine (BENTYL) 10 mg capsule Take 20 mg by mouth as needed. 4 times daily as needed - eletriptan (RELPAX) 40 mg tablet Take 40 mg by mouth as needed. may repeat in 2 hours if necessary - atorvastatin (LIPITOR) 80 mg tablet Take 80 mg by mouth daily at bedtime. - DULoxetine (CYMBALTA) 30 mg capsule Take 1 capsule by mouth once daily. Take with 60 mg for 90 mg total dose. - baclofen (LIORESAL) 20 mg tablet Take 20 mg by mouth daily at bedtime. - furosemide (LASIX) 40 mg tablet Take 40 mg by mouth once daily. - doxazosin (CARDURA) 4 mg tablet Take 4 mg by mouth once daily. - metoprolol succinate XL, long acting, (TOPROL XL) 50 mg 24 hr tablet Take 50 mg by mouth once daily. - cyanocobalamin (VITAMIN B-12) 1,000 mcg tab Take 1,000 mcg by mouth once daily. - fluticasone (FLONASE) 50 mcg/actuation nasal spray Use 2 Sprays in each nostril twice daily. Problem List As Of Date 01/07/2022 Noted Resolved Headache(784.0) [R51] 07/18/2014 08/18/2021 Adjustment disorder with anxious mood [F43.22] 07/18/2014 Chronic daily headache [R51.9] 07/18/2014 08/18/2021 Intractable chronic migraine without aura [G43.*07/18/2014 Chronic back pain [M54.9, G89.29] 07/18/2014 08/18/2021 Chronic pain syndrome [G89.4] 07/18/2014 Opioid dependence (HCC) [F11.20] 07/18/2014 Medication overuse headache [G44.40] 07/18/2014 08/18/2021 Opiate dependence (HCC) [F11.20] 10/20/2014 08/18/2021 Pseudoarthrosis of lumbar spine [S32.009K] 12/08/2014 08/18/2021 Sacroiliitis (HCC) [M46.1] 10/17/2015 08/18/2021 Secondary hypertension [I15.9] 08/07/2021 08/07/2021 Primary hypertension [I10] 08/07/2021 Cerebrovascular accident (CVA) due to thrombosi*08/07/2021 Spondylolisthesis, lumbar region [M43.16] 08/16/2021 Status post lumbar spinal fusion [Z98.1] 08/17/2021 Mixed hyperlipidemia [E78.2] 08/18/2021 BPH (benign prostatic hyperplasia) [N40.0] 08/18/2021 GERD (gastroesophageal reflux disease) [K21.9] 08/18/2021 CKD (chronic kidney disease) stage 3, GFR 30-59*08/18/2021 Post-operative infection [T81.40XA] 09/12/2021 Obesity [E66.9] 09/12/2021 Delirium [R41.0] 09/15/2021 Back pain [M54.9] 11/21/2021 Low back pain [M54.50] 11/21/2021 Weakness of left lower extremity [R29.898] 11/27/2021 Sleep apnea [G47.30] 12/17/2021 Lumbar pseudoarthrosis [S32.009K] 12/31/2021 Obesity, Class II, BMI 35-39.9 [E66.9] 01/01/2022 Anemia [D64.9] 01/04/2022 Encounter Status:Closed by FREDI RANDLE on 01/07/22 Normal [facility] Basic metabolic 2000 panelon 01-06-2022 Anion gap [Moles/Vol] 9 mmol/L Normal 9-18 [facility] Comment on above: Order Comment: Speci men Type: BLOOD SPECIMENOrdering Facility: [facility] Address: [address] [place] [address] Performed By: #### 2 4321-2 ####[facility] LABORATORYCLIA [id number] [place] [address] [place] Calcium [Mass/Vol] 8.8 mg/dL Normal 8.5-10.2 [facility] Comment on above: Order Comment: Speci men Type: BLOOD SPECIMENOrdering Facility: [facility] Address: [address] [address] Performed By: #### 2 4321-2 ####[facility] LABORATORYCLIA [id number] [place] [id number] [place] Chloride [Moles/Vol] 105 mmol/L Normal 97-105 [facility] Comment on above: Order Comment: Speci men Type: BLOOD SPECIMENOrdering Facility: [facility] Address: [address] [place] [address] Performed By: #### 2 4321-2 ####[facility] LABORATORYCLIA [id number] [place] [id number] [place] CO2 [Moles/Vol] 27 mmol/L Normal 22-30 [facility] Comment on above: Order Comment: Speci men Type: BLOOD SPECIMENOrdering Facility: [facility] Address: [address] [place] [address] Performed By: #### 2 4321-2 ####[facility] LABORATORYCLIA [id number] [place] [address] [place] Creatinine [Mass/Vol] 1.19 mg/dL Normal 0.73-1.22 [facility] Comment on above: Order Comment: Speci men Type: BLOOD SPECIMENOrdering Facility: [facility] Address: [address] [place] [address] Performed By: #### 2 4321-2 ####[facility] LABORATORYCLIA [id number] [place] [address] [facility] ESTIMATED GLOMERULAR FILTRATION RATE 69 mL/min/1.73m??? Normal >=60 [facility] Comment on above: Order Comment: Speci men Type: BLOOD SPECIMENOrdering Facility: [facility] Address: [address] [place] [address] Result Comment: Jane mated Glomerular Filtration Rate (eGFR) is calculated using the 2020 CKD-EPI creatinine equation. This equation utilizes serum creatinine, sex, and age as parameters. The creatinine assay has traceable calibration to isotope dilution-mass spectrometry. Refer to KDIGO guidelines for clinical interpretation. In patients with unstable renal function, e.g. those with acute kidney injury, the eGFR may not accurately reflect actual GFR. Performed By: #### 2 4321-2 ####[facility] LABORATORYCLIA [id number] [place] [address] [place] Glucose [Mass/Vol] 111 mg/dL High 74-99 [facility] Comment on above: Order Comment: Clarice conway Type: BLOOD SPECIMENOrdering Facility: [facility] Address: [address] [place], [place] [address] Result Comment: The [place] [employer] (ADA) provides guidance for cutoff values for fasting glucose and random glucose. The ADA defines fasting as no caloric intake for at least 8 hours. Fasting plasma glucose results between 100 to 125 mg/dL indicate increased risk for diabetes (prediabetes). Fasting plasma glucose results greater than or equal to 126 mg/dL meet the criteria for diagnosis of diabetes. In the absence of unequivocal hyperglycemia, results should be confirmed by repeat testing. In a patient with classic symptoms of hyperglycemia or hyperglycemic crisis, random plasma glucose results greater than or equal to 200 mg/dL meet the criteria for diagnosis of diabetes. Reference: Standards of Medical Care in Diabetes 2016, [place] [employer] Association. Diabetes Care. 2016.39(Suppl 1). Performed By: #### 2 4321-2 ####[facility] LABORATORYCLIA [id number] [address] [address] [place] Potassium [Moles/Vol] 3.9 mmol/L Normal 3.7-5.1 [facility] Comment on above: Order Comment: Clarice conway Type: BLOOD SPECIMENOrdering Facility: [facility] Address: [address] [id number] Performed By: #### 2 4321-2 ####[facility] LABORATORYCLIA [id number] [place] [address] [place] Sodium [Moles/Vol] 141 mmol/L Normal 136-144 [facility] Comment on above: Order Comment: Clarice conway Type: BLOOD SPECIMENOrdering Facility: [facility] Address: [address] [place] [address] Performed By: #### 2 4321-2 ####[facility] LABORATORYCLIA [id number] [place] [address] [facility] Urea nitrogen [Mass/Vol] 9 mg/dL Normal 9-24 [facility] Comment on above: Order Comment: Speci men Type: BLOOD SPECIMENOrdering Facility: [facility] Address: [address] [place], [place] [address] Performed By: #### 2 4321-2 ####[facility] LABORATORYCLIA [id number] [place] [address] [facility] CASE MANAGEMon 01-06-2022 CASE MANAGEM HNO ID: [id number] Author: Gracia Lr RN Service: ? Author Type: Registered Nurse Type: Care Mgt Progress Note Filed: 01/06/2022 4:32 PM Note Text: CARE MANAGEMENT DISCHARGE NOTE SERVICE DATE: 01/06/2022 SERVICE TIME: 4:31 pm LOS: 6 days Admission Date: 12/31/2021 DISCHARGE ARRANGEMENT (list agency and phone number) Discharge Arrangement: Home with Home Health (for SN / PT / OT) Provider Name: [facility] HANDOFF COMMUNICATION: Handoff to: (see summary of care) TRANSPORTATION ARRANGEMENTS: Transportation Arrangements: Car (with a friend) ADDITIONAL CONTACT RESOURCES: Discharge Information Row Name Admission (Current) from 12/31/[address] [facility] - Home Health Needs Prior to Discharge: Ready for Discharge SIGNATURE: Gracia Lr RN PATIENT NAME: Mary Prieto Barbara DATE: January 06, 2022 TIME: 4:31 PM PAGER/CONTACT #: [phone] [facility] CASE MANAGEM HNO ID: [id number] Author: Helena Triplett Service: ? Author Type: Resource Center Stamp Analyst Type: Care Mgt Progress Note Filed: 01/06/2022 10:47 AM Note Text: CARE MANAGEMENT PROGRESS NOTE SERVICE DATE: 01/06/2022 SERVICE TIME: 10:30AM LOS: 6 days IMM Follow Up Copy Given: Yes Copy given to:: Patient Method: In Person Alfredo is aware of IMM right SIGNATURE: Helena Triplett PATIENT NAME: Mary Jimenez DATE: January 06, 2022 TIME: 10:47 AM PAGER/CONTACT #: [phone] [facility] CBC panel Auto (Bld)on 01-06 Erythrocyte distribution width (RBC) [Ratio] 15.9 % High 11.5-15.0 [facility] Comment on above: Order Comment: Speci men Type: BLOOD SPECIMENOrdering Facility: [facility] Address: [address] [place] [address] Performed By: #### 5 8410-2 ####[facility] LABORATORYCLIA [id number] [address] [place] Hematocrit (Bld) [Volume fraction] 25.5 % Low 39.0-51.0 [facility] Comment on above: Order Comment: Speci men Type: BLOOD SPECIMENOrdering Facility: [facility] Address: [address] [place] [address] Performed By: #### 5 8410-2 ####[facility] LABORATORYCLIA [id number] [address] [place] Hemoglobin (Bld) [Mass/Vol] 8.1 g/dL Low 13.0-17.0 [facility] Comment on above: Order Comment: Speci men Type: BLOOD SPECIMENOrdering Facility: [facility] Address: [address] [place] [address] Performed By: #### 5 8410-2 ####[facility] LABORATORYCLIA [id number] [address] [place] MCH (RBC) [Entitic mass] 27.4 pg Normal 26.0-34.0 [facility] Comment on above: Order Comment: Speci men Type: BLOOD SPECIMENOrdering Facility: [facility] Address: [address] [place] [address] Performed By: #### 5 8410-2 ####[facility] LABORATORYCLIA [id number] [address] MCHC (RBC) [Mass/Vol] 31.8 g/dL Normal 30.5-36.0 [facility] Comment on above: Order Comment: Speci men Type: BLOOD SPECIMENOrdering Facility: [facility] Address: [address] [place] [address] Performed By: #### 5 8410-2 ####[facility] LABORATORYCLIA [id number] [address] [place] [address] [place] MCV (RBC) [Entitic vol] 86.1 fL Normal 80.0-100.0 [facility] Comment on above: Order Comment: Speci men Type: BLOOD SPECIMENOrdering Facility: [facility] Address: [address] [place] [address] Performed By: #### 5 8410-2 ####[facility] LABORATORYCLIA [id number] [address] [place] Nucleated RBC (Bld) [#/Vol] 10*3/uL Normal <0.01 [facility] Comment on above: Order Comment: Speci men Type: BLOOD SPECIMENOrdering Facility: [facility] Address: [address] [place] [address] Performed By: #### 5 8410-2 ####[facility] LABORATORYCLIA [id number] [address] [place] [address] [place] Platelet mean volume (Bld) [Entitic vol] 10.8 fL Normal 9.0-12.7 [facility] Comment on above: Order Comment: Speci men Type: BLOOD SPECIMENOrdering Facility: [facility] Address: [address] [place] [address] Performed By: #### 5 8410-2 ####[facility] LABORATORYCLIA [id number] [place] [address] [facility] [place] Platelets (Bld) [#/Vol] 277 10*3/uL Normal 150-400 [facility] Comment on above: Order Comment: Speci men Type: BLOOD SPECIMENOrdering Facility: [facility] Address: [address] [place] [address] Performed By: #### 5 8410-2 ####[facility] LABORATORYCLIA [id number] [address] RBC (Bld) [#/Vol] 2.96 10*6/uL Low 4.20-6.00 [facility] Comment on above: Order Comment: Speci men Type: BLOOD SPECIMENOrdering Facility: [facility] Address: [address] [place] [address] Performed By: #### 5 8410-2 ####[facility] LABORATORYCLIA [id number] [address] WBC (Bld) [#/Vol] 4.65 10*3/uL Normal 3.70-11.00 [facility] Comment on above: Order Comment: Speci men Type: BLOOD SPECIMENOrdering Facility: [facility] Address: [address] [place] [address] Performed By: #### 5 8410-2 ####LATTER [facility]ORY[facility] [id number] [place] [id number] [facility] CNDSon 01-06-2022 CNDS HNO ID: [id number] Author: Taylor Cardenas PA-C Service: Neurosurgery Author Type: Physician Stamp Analyst Type: Discharge Summary Filed: 01/08/2022 8:52 AM Note Text: -------- Attestation signed by Loyda Steele MD at 01/13/2022 7:38 AM Loyda Steele MD -------- DISCHARGE SUMMARY PATIENT NAME: Mary Jimenez Code Status: Not on file Highest Readmission Risk Score: 25 The 30 day readmissions risk score is derived from an internally validated risk model which evaluates patient level characteristics, utilization history, medication orders and lab results up until the day of discharge. Patients with a score of 40 or above are considered highest risk for readmission. Specific patient level drivers will be listed at the bottom of the summary. Admission Information Admission Information ADMIT DATE: 12/31/2021 DISCHARGE DATE: 01/06/22 MY DOCTORS AND MEDICAL TEAM: My Main Hospital Doctor: Loyda Steele MD Primary Care Provider: Jose Ray DO My Medical Team Members: Treatment Team: Attending Provider: Loyda Steele MD Consulting: Kumar Mock MD MY CONDITION AT DISCHARGE: Stable REASON I WAS IN THE HOSPITAL: Post-operative care of revision L4-pelvis instrumented fusion with Dr. Steele SUMMARY OF WHAT HAPPENED WHILE I WAS IN THE HOSPITAL: Underwent revision of L4-pelvis instrumented fusion with Dr Steele on 12/31, subsequently admitted for post-operative care. Was evaluated by critical care team for tachycardia on POD 1. Pain was initially controlled on SHAPING MACHINE TENDER pump. Pain management consulted and adjusted PO pain medications for better pain control. PT/OT evaluated who originally recommended SNF placement upon discharge. Drain fell out on it's own on post op day 6. PT/OT now recommending discharge home with home therapy. OTHER PROBLEMS/DIAGNOSIS: Principal Problem: Lumbar pseudoarthrosis Active Problems: Intractable chronic migraine without aura Chronic pain syndrome Primary hypertension Cerebrovascular accident (CVA) due to thrombosis (HCC) Status post lumbar spinal fusion Mixed hyperlipidemia BPH (benign prostatic hyperplasia) GERD (gastroesophageal reflux disease) CKD (chronic kidney disease) stage 3, GFR 30-59 ml/min (HCC) Obesity Sleep apnea Anemia Resolved Problems: * No resolved hospital problems. * OPERATIONS PERFORMED WHILE IN THE HOSPITAL: L4-pelvis instrumented fusion revision surgery IMPORTANT TEST/PROCEDURES: Echocardiogram TEST RESULTS NOT AVAILABLE AT THIS TIME: No pending results Discharge Disposition Discharge Disposition: Home With Home Care Activity When You Leave the Hospital Do not bend over at the waist to lift heavy objects Lifting is restricted to: 10lbs No baths or showers for: 4 days No driving for: Minimum two weeks, discuss with surgeon at post-op visit No prolonged bedrest, longer than 8 hours in a 24 hour period No swimming or hot tubs for: 6 weeks Other: If you have had a fusion please contact us before going to the dentist within three months of your surgery Diet Instructions Resume your pre-hospital diet For Pain When You Leave the Hospital Apply a covered cold pack to the area If you become constipated, you may use any vsgu-ewd-lffdwko treatment such as Milk of Magnesia, Sennakot, Prune Juice, Suppositories, etc. in addition to the stool softener/fiber supplement No alcohol or driving while on pain medication Other: If you had a fusion please do not take NSAIDS for a minimum of six weeks You can supplement with Tylenol (each percocet has 325mg of Tylenol, do not take more than 3,000mg of Tylenol per day) If you have liver disease please communicate with your primary care provider before taking Tylenol Use the dispensed medication (see prescription) You should use an dxxf-uob-cfqxavv stool softener (Docusate sodium) and/or a fiber supplement (Metamucil, Fiber Con) every day while taking prescribed pain medication Wound/Surgical Site Care Some bleeding from the wound/surgical site can be expected. If excessive, see a doctor at once Some bleeding from the wound/surgical site can be expected. If you soak a gauze bandage in one hour, see a doctor at once Wash your hands frequently, especially before touching your incision, after using restroom and before eating Call Your Doctor If There is an unusual odor from the wound area There is severe pain at the operative site You have pain and swelling in your legs, especially if it is only on one side and not the other You have redness, swelling, pus or drainage from the wound Your temperature is greater than 101F Additional Provider to Provider Information: No notes on file Treatment Team: Attending Provider: Loyda Steele MD Transitions of Care Critical Issu (more content not included)... Normal [facility] THERAPY NTon 01-06-2022 THERAPY NT HNO ID: [id number] Author: Dionte Estrada, PT Service: Physical Therapy Author Type: Physical Therapist Type: Therapy (PT/OT/Speech/Resp) Filed: 01/06/2022 2:47 PM Note Text: Physical Therapy Treatment SERVICE DATE: 01/06/2022 SERVICE TIME: 1420 to 1434 ROOM: [place] [address] Recommended Discharge Disposition: Home PT Recommended Discharge Disposition Comments: Pt safe and ready to d/c home with PRN A from family and Home PT. 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;anticipate community discharge/previous community dweller;ongoing intervention of multiple therapy disciplines;decline in functional status requiring daily skilled care Anticipated Discharge Needs: Physical Assist at Home;Supervision at Home Physical Assist at Home for: Cleaning;Laundry;Shoppin g;Transportation Supervision at Home due to: Decreased safety awareness Recommended Discharge Equipment: No equipment needs anticipated (pt owns all needed PT DME) PT 6 Clicks Score: 24 Precautions/Activity Restrictions: Fall Risk;Spine Current Hospital Course: Revision L4-pelvis instrumented fusion Reason for Hospital Admission: spine sx Relevant Past Medical History: Migraines, HTN, DEANA, CVA 2013, L5/S1 transforaminal lumbar interbody fusion 08/16/21, spinal stimulator, dyslipedemia, urinary retention,Anxiety, Obesity, Urinary Retention, L4-L5 surgery, suresh shoulder surgery, Suresh knee surgery Response to Therapy Interventions: Good participation in activities, On-track to achieve discharge goals, Improved tolerance for activity, Notable progression with functional activities/skills Continue skilled needs due to: Functional mobility/skill impairments Physical Therapy Problem List: Education Deficit;Safety Deficits;Decreased Activity Tolerance;Decreased Strength;Functional Mobility Impairment;Balance Impaired Treatment Interventions: Education;Energy Conservation Training;Joint Mobility;Strengthening;F unctional Mobility Training;Balance Training;Edema Management;Pain Management Modalities: Ice Plan for next visit: Chair transfer training, Fall prevention, Gait training, Exercise instruction/handout, Sit to Stand Transfers, Standing Balance Home Environment Patient Lives With: Self/Alone;Other: See Comment (sister, mom and friends help) Assistance Available: PRN Entry To Home: Stairs;With Rail Number Of Stairs Into Home: 5 Number Of Stairs To Bed/Bath: 1st floor set up Stairs to Bed/Bath with: Unilateral Rail Tub/Shower Type: tub shower Laundry: first floor Equipment Owned: Cane;Wheeled Walker;Wire Transfer Clerk;Grab Bars-Shower;ADL Kit;Elevated Toilet Seat;Shower Chair;Elastic Shoe Laces;Hospital Bed (PEr pt he does not have elevated toilet seat, sock aid etc.) Prior Functional Level: Required Assistance Assistance Required With: Cleaning;Laundry;Transpo rtation Prior Functional Level Comments: Patient vague and questionable historian. Has hospital bed but sleeping on sofa with his dog. Unclear using walker as per pt initially for 2 weeks he did not use walker. Per pt spends most of his time laying down. Microwaves meals. Online orders from [employer]. Per pt he puts on his socks without sockaid. Reaching down to floor to refil dog food. No falls in last 5 months. Was in SNF from September 17 -November 17 Patient Report: Pt reported feeling safe and ready to d/c home today CURRENT FUNCTIONAL STATUS: Most recent performance Current Functional Mobility Assist Level Additional Information Rolling Supervision Supine to Sit Independent . Sit to Supine Independent pt demo'd good log roll Scooting Independent Sit to Stand Modified Independent . Stand to Sit Modified Independent Bed to Chair Modified Independent Bed To Chair Transfer Type: Stepping Bed To Chair Transfer Equipment: Wheeled Walker Toilet/Commode Gait Modified Independent Gait Device: Wheeled Walker Gait Distance (feet): 300 ft Pt progressed to mod I and appeared steady throughout. Stairs Supervision;Additional Information Stairs Device: Rail Number of Stairs: 3 Suresh rail Curb Step Car Transfer Blank paez indicate activity not attempted Gait Deviations Left Lower Extremity: Heel strike during initial stance decreased General Deviations/Observations: Flexed trunk posture Balance: Dynamic Standing Static Standing Balance: Good Patient able to maintain balance without handhold support, limited postural sway Dynamic Standing Balance: Fair Patient accepts minimal challenge, able to maintain balance while turning head/trunk JH-HLM: 8: Walk 250 feet or more Learning/Educational Needs: Discharge Plan;Functional Activities/Mobility;Pain Management;Precautions;R ehabilitation Techniques and Procedures;Safety Goals for Plan of C (more content not included)... [facility] THERAPY NT HNO ID: [id number] Author: Dionte Estrada PT Service: Physical Therapy Author Type: Physical Therapist Type: Therapy (PT/OT/Speech/Resp) Filed: 01/06/2022 2:36 PM Note Text: Physical Therapy Treatment SERVICE DATE: 01/06/2022 SERVICE TIME: 835 to 900 ROOM: [place] [address] Recommended Discharge Disposition: Subacute/SNF Recommended Discharge Disposition Comments: Pt will benefit from short stay at SNF due to inconsistency with mobility/cognition and poor safey awareness at times. 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;anticipate community discharge/previous community dweller;ongoing intervention of multiple therapy disciplines;decline in functional status requiring daily skilled care Anticipated Discharge Needs: Physical Assist at Home;Supervision at Home Physical Assist at Home for: Cleaning;Laundry;Meals;S afety;Transportation;Isabela pping Supervision at Home due to: Decreased safety awareness Recommended Discharge Equipment: To Be Determined PT 6 Clicks Score: 20 Precautions/Activity Restrictions: Fall Risk;Spine Current Hospital Course: Revision L4-pelvis instrumented fusion Reason for Hospital Admission: spine sx Relevant Past Medical History: Migraines, HTN, DEANA, CVA 2013, L5/S1 transforaminal lumbar interbody fusion 08/16/21, spinal stimulator, dyslipedemia, urinary retention,Anxiety, Obesity, Urinary Retention, L4-L5 surgery, suresh shoulder surgery, Suresh knee surgery Response to Therapy Interventions: Good participation in activities, Improved tolerance for activity, On-track to achieve discharge goals, Pain, Requires additional time to complete activities Assessment Comments: . Continue skilled needs due to: Functional mobility/skill impairments Physical Therapy Problem List: Education Deficit;Safety Deficits;Decreased Activity Tolerance;Decreased Strength;Functional Mobility Impairment;Balance Impaired Treatment Interventions: Education;Energy Conservation Training;Joint Mobility;Strengthening;F unctional Mobility Training;Balance Training;Edema Management;Pain Management Modalities: Ice Plan for next visit: Chair transfer training, Fall prevention, Gait training, Exercise instruction/handout, Sit to Stand Transfers, Standing Balance Home Environment Patient Lives With: Self/Alone;Other: See Comment (sister, mom and friends help) Assistance Available: PRN Entry To Home: Stairs;With Rail Number Of Stairs Into Home: 5 Number Of Stairs To Bed/Bath: 1st floor set up Stairs to Bed/Bath with: Unilateral Rail Tub/Shower Type: tub shower Laundry: first floor Equipment Owned: Cane;Wheeled Walker;Wire Transfer Clerk;Grab Bars-Shower;ADL Kit;Elevated Toilet Seat;Shower Chair;Elastic Shoe Laces;Hospital Bed (PEr pt he does not have elevated toilet seat, sock aid etc.) Prior Functional Level: Required Assistance Assistance Required With: Cleaning;Laundry;Transpo rtation Prior Functional Level Comments: Patient vague and questionable historian. Has hospital bed but sleeping on sofa with his dog. Unclear using walker as per pt initially for 2 weeks he did not use walker. Per pt spends most of his time laying down. Microwaves meals. Online orders from [employer]. Per pt he puts on his socks without sockaid. Reaching down to floor to refil dog food. No falls in last 5 months. Was in SNF from September 17 -November 17 Patient Report: pt agreeable to PT session CURRENT FUNCTIONAL STATUS: Most recent performance Current Functional Mobility Assist Level Additional Information Rolling Supervision . Supine to Sit Supervision VC for log roll technique Sit to Supine Supervision Scooting Supervision Sit to Stand Contact Guard Assistance impulsive at times Stand to Sit Contact Guard Assistance Bed to Chair Contact Guard Assistance Bed To Chair Transfer Type: Stepping Bed To Chair Transfer Equipment: Wheeled Walker Toilet/Commode Gait Supervision;Additional Information Gait Device: Wheeled Walker Gait Distance (feet): 150 ft Pt gait progressed to sup, however as fatigue/pain increased pt became slightly unsteady and trunk flexion increased. Stairs Contact Guard Assistance Not performed Stairs Device: Cane;Rail Number of Stairs: 3 Curb Step Car Transfer Blank paez indicate activity not attempted Gait Deviations Left Lower Extremity: Heel strike during initial stance decreased General Deviations/Observations: Flexed trunk posture Balance: Dynamic Standing Static Standing Balance: Good Patient able to maintain balance without handhold support, limited postural sway Dynamic Standing Balance: Fair Patient accepts minimal challenge, able to maintain balance while turning head/trunk -HLM: 7: Walk 25 feet or more Learning/Educational Needs: Discharg (more content not included)... Normal [facility] Basic metabolic 2000 panelon 01-05-2022 Anion gap [Moles/Vol] 9 mmol/L Normal 9-18 [facility] Comment on above: Order Comment: Speci men Type: BLOOD SPECIMENOrdering Facility: [facility] Address: [address] [place] [address] Performed By: #### 2 4321-2 ####[facility] LABORATORYCLIA [id number] [address] [place] [address] [place] Calcium [Mass/Vol] 8.5 mg/dL Normal 8.5-10.2 [facility] Comment on above: Order Comment: Speci men Type: BLOOD SPECIMENOrdering Facility: [facility] Address: [address] [place] [address] Performed By: #### 2 4321-2 ####[facility] LABORATORYCLIA [id number] [place] [address] [place] Chloride [Moles/Vol] 101 mmol/L Normal 97-105 [facility] Comment on above: Order Comment: Speci men Type: BLOOD SPECIMENOrdering Facility: [facility] Address: [address] [place] [address] Performed By: #### 2 4321-2 ####[facility] LABORATORYCLIA [id number] [place] [id number] [place] CO2 [Moles/Vol] 27 mmol/L Normal 22-30 [facility] Comment on above: Order Comment: Speci men Type: BLOOD SPECIMENOrdering Facility: [facility] Address: [address] [place] [address] Performed By: #### 2 4321-2 ####[facility] LABORATORYCLIA [id number] [place] [address] [place] Creatinine [Mass/Vol] 1.18 mg/dL Normal 0.73-1.22 [facility] Comment on above: Order Comment: Lovetamra conway Type: BLOOD SPECIMENOrdering Facility: [facility] Address: [address] [place] [id number] Performed By: #### 2 4321-2 ####[facility] LABORATORYCLIA [id number] [address] [place] ESTIMATED GLOMERULAR FILTRATION RATE 70 mL/min/1.73m??? Normal >=60 [facility] Comment on above: Order Comment: Clarice conway Type: BLOOD SPECIMENOrdering Facility: [facility] Address: [address] [place] [address] Result Comment: Jane mated Glomerular Filtration Rate (eGFR) is calculated using the 2020 CKD-EPI creatinine equation. This equation utilizes serum creatinine, sex, and age as parameters. The creatinine assay has traceable calibration to isotope dilution-mass spectrometry. Refer to KDIGO guidelines for clinical interpretation. In patients with unstable renal function, e.g. those with acute kidney injury, the eGFR may not accurately reflect actual GFR. Performed By: #### 2 4321-2 ####[facility] LABORATORYCLIA [id number] [place] [address] [place] Glucose [Mass/Vol] 124 mg/dL High 74-99 [facility] Comment on above: Order Comment: Clarice conway Type: BLOOD SPECIMENOrdering Facility: [facility] Address: [address] [place] [address] Result Comment: The [place] [employer] (ADA) provides guidance for cutoff values for fasting glucose and random glucose. The ADA defines fasting as no caloric intake for at least 8 hours. Fasting plasma glucose results between 100 to 125 mg/dL indicate increased risk for diabetes (prediabetes). Fasting plasma glucose results greater than or equal to 126 mg/dL meet the criteria for diagnosis of diabetes. In the absence of unequivocal hyperglycemia, results should be confirmed by repeat testing. In a patient with classic symptoms of hyperglycemia or hyperglycemic crisis, random plasma glucose results greater than or equal to 200 mg/dL meet the criteria for diagnosis of diabetes. Reference: Standards of Medical Care in Diabetes 2016, [place] [employer] Association. Diabetes Care. 2016.39(Suppl 1). Performed By: #### 2 4321-2 ####[facility] LABORATORYCLIA [id number] [place] [address] [place] [facility] Potassium [Moles/Vol] 4.1 mmol/L Normal 3.7-5.1 [facility] Comment on above: Order Comment: Speci men Type: BLOOD SPECIMENOrdering Facility: [facility] Address: [address] [place] [address] Performed By: #### 2 4321-2 ####[facility] LABORATORYCLIA [id number] [place] [address] [place] [facility] Sodium [Moles/Vol] 137 mmol/L Normal 136-144 [facility] Comment on above: Order Comment: Speci men Type: BLOOD SPECIMENOrdering Facility: [facility] Address: [address] [place] [address] Performed By: #### 2 4321-2 ####[facility] LABORATORYCLIA [id number] [address] Urea nitrogen [Mass/Vol] 9 mg/dL Normal 9-24 [facility] Comment on above: Order Comment: Speci men Type: BLOOD SPECIMENOrdering Facility: [facility] Address: [address] [place] [address] Performed By: #### 2 4321-2 ####[facility] LABORATORYCLIA [id number] [place] [address] [facility] CBC panel Auto (Bld)on 01-05 Erythrocyte distribution width (RBC) [Ratio] 15.9 % High 11.5-15.0 [facility] Comment on above: Order Comment: Speci men Type: BLOOD SPECIMEN [facility] Address: [address] [place] [address] Performed By: #### 5 8410-2 #### [facility] CLIA [id number] [address] [place] [address] [place] Hematocrit (Bld) [Volume fraction] 25.4 % Low 39.0-51.0 [facility] Comment on above: Order Comment: Speci men Type: BLOOD SPECIMEN [facility] Address: [address] [place] [address] Performed By: #### 5 8410-2 #### [facility] CLIA [id number] [address] [place] [address] [place] Hemoglobin (Bld) [Mass/Vol] 8.1 g/dL Low 13.0-17.0 [facility] Comment on above: Order Comment: Speci men Type: BLOOD SPECIMEN [facility] Address: [address] [place] [address] Performed By: #### 5 8410-2 #### [facility] [place] [id number] [address] [place] [address] STATES [facility] MCH (RBC) [Entitic mass] 27.6 pg Normal 26.0-34.0 [facility] Comment on above: Order Comment: Speci men Type: BLOOD SPECIMEN [facility] Address: [address] [place] [address] Performed By: #### 5 8410-2 #### [facility] [place] [id number] [address] [place] [address] [place] MCHC (RBC) [Mass/Vol] 31.9 g/dL Normal 30.5-36.0 [facility] Comment on above: Order Comment: Speci men Type: BLOOD SPECIMEN [facility] Address: [address] [place] [address] Performed By: #### 5 8410-2 #### [facility] CLIA [id number] [address] [place] [address] STATES [facility] MCV (RBC) [Entitic vol] 86.4 fL Normal 80.0-100.0 [facility] Comment on above: Order Comment: Speci men Type: BLOOD SPECIMEN [facility] Address: [address] Performed By: #### 5 8410-2 #### [facility] CLIA [id number] [address] [place], [place] [address] [place] Nucleated RBC (Bld) [#/Vol] 10*3/uL Normal <0.01 [facility] Comment on above: Order Comment: Speci men Type: BLOOD SPECIMEN [facility] Address: [address] [place], [place] [address] Performed By: #### 5 8410-2 #### [facility] CLIA [id number] [address] [place] [address] [place] Platelet mean volume (Bld) [Entitic vol] 11.0 fL Normal 9.0-12.7 [facility] Comment on above: Order Comment: Speci men Type: BLOOD SPECIMEN [facility] Address: [address] [place], [place] [address] Performed By: #### 5 8410-2 #### [facility] [place] [id number] [address] [place], [place] [address] [place] Platelets (Bld) [#/Vol] 266 10*3/uL Normal 150-400 [facility] Comment on above: Order Comment: Speci men Type: BLOOD SPECIMEN [facility] Address: [address] [place] [address] Performed By: #### 5 8410-2 #### [facility] CLIA [id number] [address] [place], [place] [address] [place] RBC (Bld) [#/Vol] 2.94 10*6/uL Low 4.20-6.00 [facility] Comment on above: Order Comment: Speci men Type: BLOOD SPECIMEN [facility] Address: [address] [place] [address] Performed By: #### 5 8410-2 #### [facility] CLIA [id number] [address] [place] [address] [place] [id number] [facility] [place] WBC (Bld) [#/Vol] 3.60 10*3/uL Low 3.70-11.00 [facility] Comment on above: Order Comment: Speci men Type: BLOOD SPECIMEN [facility] Address: [address] [place] [address] Performed By: #### 5 8410-2 #### [facility] CLIA [id number] [address] [place] [address] [place] [id number] [facility] THERAPY NTon 01-05-2022 THERAPY NT HNO ID: [id number] Author: Jon Calderón PTA Service: Physical Therapy Author Type: Route Rider Supervisor Type: Therapy (PT/OT/Speech/Resp) Filed: 01/05/2022 11:33 AM Note Text: -------- Attestation signed by Italia Morales PT at 01/06/2022 4:59 PM I reviewed and agree with the documentation corresponding to this therapy visit. SIGNATURE: Italia Morales PT DATE: January 06, 2022 TIME: 4:59 PM -------- Physical Therapy Treatment SERVICE DATE: 01/05/2022 SERVICE TIME: 1040 to 1110 ROOM: [place] [address] Recommended Discharge Disposition: Subacute/SNF Recommended Discharge Disposition Comments: Pt will benefit from short stay at SNF due to inconsistency with mobility/cognition and poor safey awareness at times. 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 Patient has fluctuating safety awareness and becomes high fall risk sporadically. Per NSG, pt was ambulating w/o SUP earlier. Iniitally, patient able to recite precautions and demo'd good recall of exercises reviewed yesterday. After ambulating 100' pt c/o increased fatigue-patient then attempted walking very quickly and unsafely back to room with excessive bend over AD. Required MOD assist to slow patient down. Had patient sit in chair before returning to room. Again patient attempted to run back to room and attempted diving back into bed.Bed alarm ON after session Precautions/Activity Restrictions: Fall Risk;Spine Current Hospital Course: Revision L4-pelvis instrumented fusion Reason for Hospital Admission: spine sx Relevant Past Medical History: Migraines, HTN, DEANA, CVA 2013, L5/S1 transforaminal lumbar interbody fusion 08/16/21, spinal stimulator, dyslipedemia, urinary retention,Anxiety, Obesity, Urinary Retention, L4-L5 surgery, suresh shoulder surgery, Suresh knee surgery Response to Therapy Interventions: Good participation in activities, Low activity tolerance, Needs frequent redirection or re-instruction Physical Therapy Problem List: Education Deficit;Safety Deficits;Decreased Activity Tolerance;Decreased Strength;Functional Mobility Impairment;Balance Impaired Treatment Interventions: Education;Energy Conservation Training;Joint Mobility;Strengthening;F unctional Mobility Training;Balance Training;Edema Management;Pain Management Modalities: Ice Plan for next visit: Chair transfer training, Fall prevention, Gait training, Exercise instruction/handout, Sit to Stand Transfers, Standing Balance Home Environment Patient Lives With: Self/Alone;Other: See Comment (sister, mom and friends help) Assistance Available: PRN Entry To Home: Stairs;With Rail Number Of Stairs Into Home: 5 Number Of Stairs To Bed/Bath: 1st floor set up Stairs to Bed/Bath with: Unilateral Rail Tub/Shower Type: tub shower Laundry: first floor Equipment Owned: Cane;Wheeled Walker;Wire Transfer Clerk;Grab Bars-Shower;ADL Kit;Elevated Toilet Seat;Shower Chair;Elastic Shoe Laces;Hospital Bed (PEr pt he does not have elevated toilet seat, sock aid etc.) Prior Functional Level: Required Assistance Assistance Required With: Cleaning;Laundry;Transpo rtation Prior Functional Level Comments: Patient vague and questionable historian. Has hospital bed but sleeping on sofa with his dog. Unclear using walker as per pt initially for 2 weeks he did not use walker. Per pt spends most of his time laying down. Microwaves meals. Online orders from [employer]. Per pt he puts on his socks without sockaid. Reaching down to floor to refil dog food. No falls in last 5 months. Was in SNF from September 17 -November 17 Patient Report: pt agreeable to PT session CURRENT FUNCTIONAL STATUS: Most recent performance Current Functional Mobility Assist Level Additional Information Rolling Supervision Supine to Sit Supervision Sit to Supine Supervision Scooting Supervision Sit to Stand Minimal Assistance Stand to Sit Minimal Assistance Bed to Chair Minimal Assistance Bed To Chair Transfer Type: Stepping Bed To Chair Transfer Equipment: Wheeled Walker Toilet/Commode Gait (initially SBA then MOD assist) Gait Device: Wheeled Wa (more content not included)... Normal [facility] Basic metabolic 2000 panelon 01-04-2022 Anion gap [Moles/Vol] 8 mmol/L Low 9-18 [facility] Comment on above: Order Comment: Speci men Type: BLOOD SPECIMEN [facility]ing Facility[facility] Address: [address] [place] [id number] Performed By: #### 2 4321-2 #### [facility] CLIA [id number] [address] [place] [address] [place] [address] [place] Calcium [Mass/Vol] 8.5 mg/dL Normal 8.5-10.2 [facility] Comment on above: Order Comment: Speci men Type: BLOOD SPECIMEN Ordering Facility: [facility] Address: [address] [place] [address] Performed By: #### 2 4321-2 #### [facility] CLIA [id number] [address] [place], [place] [id number] [place] Chloride [Moles/Vol] 103 mmol/L Normal 97-105 [facility] Comment on above: Order Comment: Speci men Type: BLOOD SPECIMEN Ordering Facility: [facility] Address: [address] [place] [address] Performed By: #### 2 4321-2 #### [facility] CLIA [id number] [address] [place], [place] [address] [place] CO2 [Moles/Vol] 28 mmol/L Normal 22-30 [facility] Comment on above: Order Comment: Speci men Type: BLOOD SPECIMEN Ordering Facility: [facility] Address: [address] [place] [address] Performed By: #### 2 4321-2 #### [facility] CLIA [id number] [address] [place], [place] [address] [place] Creatinine [Mass/Vol] 1.38 mg/dL High 0.73-1.22 [facility] Comment on above: Order Comment: Speci men Type: BLOOD SPECIMEN Ordering Facility: [facility] Address: [address] [place] [address] Performed By: #### 2 4321-2 #### [facility] CLIA [id number] [address] [place], [place] [id number] [place] ESTIMATED GLOMERULAR FILTRATION RATE 58 mL/min/1.73m??? Low >=60 [facility] Comment on above: Order Comment: Speci men Type: BLOOD SPECIMEN Ordering Facility: [facility] Address: [address] [place] [address] Result Comment: Jane mated Glomerular Filtration Rate (eGFR) is calculated using the 2020 CKD-EPI creatinine equation. This equation utilizes serum creatinine, sex, and age as parameters. The creatinine assay has traceable calibration to isotope dilution-mass spectrometry. Refer to KDIGO guidelines for clinical interpretation. In patients with unstable renal function, e.g. those with acute kidney injury, the eGFR may not accurately reflect actual GFR. Performed By: #### 2 4321-2 #### [facility] CLIA [id number] [facility] [place] [id number] [place] Glucose [Mass/Vol] 106 mg/dL High 74-99 [facility] Comment on above: Order Comment: Speci men Type: BLOOD SPECIMEN Ordering Facility: [facility] Address: [address] [place], [place] [address] Result Comment: The [place] Diabetes [employer] (ADA) provides guidance for cutoff values for fasting glucose and random glucose. The ADA defines fasting as no caloric intake for at least 8 hours. Fasting plasma glucose results between 100 to 125 mg/dL indicate increased risk for diabetes (prediabetes). Fasting plasma glucose results greater than or equal to 126 mg/dL meet the criteria for diagnosis of diabetes. In the absence of unequivocal hyperglycemia, results should be confirmed by repeat testing. In a patient with classic symptoms of hyperglycemia or hyperglycemic crisis, random plasma glucose results greater than or equal to 200 mg/dL meet the criteria for diagnosis of diabetes. Reference: Standards of Medical Care in Diabetes 2016, [place] [employer]. Diabetes Care. 2016.39(Suppl 1). Performed By: #### 2 4321-2 #### [facility] CLIA [id number] [address] [place], [place] [address] [place] Potassium [Moles/Vol] 4.4 mmol/L Normal 3.7-5.1 [facility] Comment on above: Order Comment: [facility] Type: BLOOD SPECIMEN Ordering Facility: [facility] Address: [address] [place], [place] [address] Performed By: #### 2 4321-2 #### [facility] CLIA [id number] [address] [place], [place] [address] [place] Sodium [Moles/Vol] 139 mmol/L Normal 136-144 [facility] Comment on above: Order Comment: Speci men Type: BLOOD SPECIMEN Ordering Facility: [facility] Address: [address] [place] [address] Performed By: #### 2 4321-2 #### [facility] CLIA [id number] [address] [place] [address] STATES [facility] Urea nitrogen [Mass/Vol] 11 mg/dL Normal 9-24 [facility] Comment on above: Order Comment: Speci men Type: BLOOD SPECIMEN Ordering Facility: [facility] Address: [address] [place] [address] Performed By: #### 2 4321-2 #### [facility] CLIA [id number] [address] [place] [address] CBC panel Auto (Bld)on 01-04 Erythrocyte distribution width (RBC) [Ratio] 15.8 % High 11.5-15.0 [facility] Comment on above: Order Comment: Speci men Type: BLOOD SPECIMENOrdering Facility: [facility] Address: [address] [place] [address] Performed By: #### 5 8410-2 ####[facility] [id number] [address] STATES [facility] Hematocrit (Bld) [Volume fraction] 25.1 % Low 39.0-51.0 [facility] Comment on above: Order Comment: Speci men Type: BLOOD SPECIMENOrdering Facility: [facility] Address: [address] [place] [address] Performed By: #### 5 8410-2 ####[facility] [id number] [place] [address] [place] Hemoglobin (Bld) [Mass/Vol] 8.0 g/dL Low 13.0-17.0 [facility] Comment on above: Order Comment: Speci men Type: BLOOD SPECIMENOrdering Facility: [facility] Address: [address] [place], [place] [address] Performed By: #### 5 8410-2 ####[facility] [id number] [address] MCH (RBC) [Entitic mass] 27.8 pg Normal 26.0-34.0 [facility] Comment on above: Order Comment: Speci men Type: BLOOD SPECIMENOrdering Facility: [facility] Address: [address] [place] [address] Performed By: #### 5 8410-2 ####[facility] [id number] [address] [place] [address] STATES [facility] MCHC (RBC) [Mass/Vol] 31.9 g/dL Normal 30.5-36.0 [facility] Comment on above: Order Comment: Speci men Type: BLOOD SPECIMENOrdering Facility: [facility] Address: [address] [place] [address] Performed By: #### 5 8410-2 ####[facility] [id number] [address] MCV (RBC) [Entitic vol] 87.2 fL Normal 80.0-100.0 [facility] Comment on above: Order Comment: Speci men Type: BLOOD SPECIMENOrdering Facility: [facility] Address: [address] [place] [address] Performed By: #### 5 8410-2 ####[facility] [id number] [address] Nucleated RBC (Bld) [#/Vol] 10*3/uL Normal <0.01 [facility] Comment on above: Order Comment: Speci men Type: BLOOD SPECIMENOrdering Facility: [facility] Address: [address] [place] [address] Performed By: #### 5 8410-2 ####[facility] [id number] [address] Platelet mean volume (Bld) [Entitic vol] 11.1 fL Normal 9.0-12.7 [facility] Comment on above: Order Comment: Speci men Type: BLOOD SPECIMENOrdering Facility: [facility] Address: [address] [place] [address] Performed By: #### 5 8410-2 ####[facility] [id number] [place] [address] [facility] [place] Platelets (Bld) [#/Vol] 205 10*3/uL Normal 150-400 [facility] Comment on above: Order Comment: Speci men Type: BLOOD SPECIMENOrdering Facility: [facility] Address: [address] [place] [address] Performed By: #### 5 8410-2 ####[facility] [id number] [address] [place] [address] RBC (Bld) [#/Vol] 2.88 10*6/uL Low 4.20-6.00 [facility] Comment on above: Order Comment: Speci men Type: BLOOD SPECIMENOrdering Facility: [facility] Address: [address] [place] [address] Performed By: #### 5 8410-2 ####[facility] [id number] [place] [address] [facility] WBC (Bld) [#/Vol] 4.55 10*3/uL Normal 3.70-11.00 [facility] Comment on above: Order Comment: Speci men Type: BLOOD SPECIMENOrdering Facility: [facility] Address: [address] [place] [address] Performed By: #### 5 8410-2 ####[facility] [id number] [place] [address] [facility] NURSING PROGon 01-04-2022 NURSING PROG HNO ID: [id number] Author: Venkatesh Cheney RN Service: Nursing Author Type: Registered Nurse Type: Nursing Progress Note Filed: 01/04/2022 5:39 PM Note Text: Assumed care of patient from RN, Aislinn. Patient is alert and oriented x3 and has no needs at this time. Will continue to monitor patient status. [facility] THERAPY NT 01-04-2022 THERAPY NT HNO ID: [id number] Author: Jon Calderón PTA Service: Physical Therapy Author Type: Route Rider Supervisor Type: Therapy (PT/OT/Speech/Resp) Filed: 01/04/2022 3:56 PM Note Text: -------- Attestation signed by Italia Morales PT at 01/06/2022 4:59 PM I reviewed and agree with the documentation corresponding to this therapy visit. SIGNATURE: Italia Morales PT DATE: January 06, 2022 TIME: 4:59 PM -------- Physical Therapy Treatment SERVICE DATE: 01/04/2022 SERVICE TIME: 1310 to 1348 ROOM: [id number] Recommended Discharge Disposition: Subacute/SNF Recommended Discharge Disposition Comments: Pt will benefit from short stay at SNF due to inconsistency with mobility/cognition and poor safey awareness at times. 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;anticipate community discharge/previous community dweller;ongoing intervention of multiple therapy disciplines;decline in functional status requiring daily skilled care Anticipated Discharge Needs: Physical Assist at Home;Supervision at Home Physical Assist at Home for: Cleaning;Laundry;Meals;S afety;Transportation;Isabela pping Supervision at Home due to: Decreased safety awareness Recommended Discharge Equipment: To Be Determined PT 6 Clicks Score: 20 Precautions/Activity Restrictions: Fall Risk;Spine;Impulsive with Activity Current Hospital Course: Revision L4-pelvis instrumented fusion Reason for Hospital Admission: spine sx Relevant Past Medical History: Migraines, HTN, DEANA, CVA 2013, L5/S1 transforaminal lumbar interbody fusion 08/16/21, spinal stimulator, dyslipedemia, urinary retention,Anxiety, Obesity, Urinary Retention, L4-L5 surgery, suresh shoulder surgery, Suresh knee surgery Response to Therapy Interventions: Good participation in activities, On-track to achieve discharge goals Continue skilled needs due to: Functional mobility/skill impairments Physical Therapy Problem List: Education Deficit;Safety Deficits;Decreased Activity Tolerance;Decreased Strength;Functional Mobility Impairment;Balance Impaired Treatment Interventions: Energy Conservation Training;Joint Mobility;Strengthening;F unctional Mobility Training;Balance Training;Modalities;Franky a Management;Pain Management Modalities: Ice Home Environment Patient Lives With: Self/Alone;Other: See Comment (sister, mom and friends help) Assistance Available: PRN Entry To Home: Stairs;With Rail Number Of Stairs Into Home: 5 Number Of Stairs To Bed/Bath: 1st floor set up Stairs to Bed/Bath with: Unilateral Rail Tub/Shower Type: tub shower Laundry: first floor Equipment Owned: Cane;Wheeled Walker;Wire Transfer Clerk;Grab Bars-Shower;ADL Kit;Elevated Toilet Seat;Shower Chair;Elastic Shoe Laces;Hospital Bed (PEr pt he does not have elevated toilet seat, sock aid etc.) Prior Functional Level: Required Assistance Assistance Required With: Cleaning;Laundry;Transpo rtation Prior Functional Level Comments: Patient vague and questionable historian. Has hospital bed but sleeping on sofa with his dog. Unclear using walker as per pt initially for 2 weeks he did not use walker. Per pt spends most of his time laying down. Microwaves meals. Online orders from [employer]. Per pt he puts on his socks without sockaid. Reaching down to floor to refil dog food. No falls in last 5 months. Was in SNF from September 17 -November 17 Patient Report: pt agreeable to PT session CURRENT FUNCTIONAL STATUS: Most recent performance Current Functional Mobility Assist Level Additional Information Rolling Supervision Supine to Sit Supervision Sit to Supine Supervision Scooting Supervision Sit to Stand Contact Guard Assistance Stand to Sit Stand By Assistance Bed to Chair Stand By Assistance Bed To Chair Transfer Type: Stepping Bed To Chair Transfer Equipment: Wheeled Walker Toilet/Commode Gait Stand By Assistance Gait Device: Wheeled Walker Gait Distance (feet): 150 Stairs Contact Guard Assistance Stairs Device: Cane;Rail Number of Stairs: 3 Curb Step Car Transfer Blank paez indicate activity not attempted Gait Deviations Left Lower Extremity: Heel strike during initial stance decreased General Deviations/Observations: Antalgic gait;Flexed trunk posture;Michaela decreased;UE weight bearing on assistive device excessive;Improper distancing from assistive device;Step length decreased Balance: Dynamic Standing Static Standing Balance: Good Patient able to maintain balance without handhold support, limited postural sway Dynamic Standing Balance: Fair Patient accepts minimal challenge, able to maintain balance while turning he (more content not included)... [facility] HEALTH 01-03-2022 [facility] HEALTH HNO ID: [id number] Author: RT Shay(Megan) Service: Radiology Author Type: Technologist Type: Allied Health Filed: 01/03/2022 9:25 AM Note Text: Radiology Service Progress Note PATIENT NAME: Mary Jimenez DATE OF SERVICE: January 03, 2022 TIME: 9:24 AM PATIENT IDENTITY VERIFICATION COMPLETED USING TWO (2) IDENTIFIERS: Name and Date of confirmed by patient verbally and Name and Date of confirmed by identification band. FALL SCREENING: Has the patient had 2 falls in the last year or 1 fall with injury or currently using an Ambulatory Assistive Device (Walker, Cane, Wheelchair, Crutches, etc.)? YES WALKER POST SURGERY PATIENT GENDER DATA: Male PATIENT RELEVANT IMPLANT DATA REVIEWED: Not Applicable RADIOLOGY DEPARTMENT: General X-ray: Exam(s) Completed: Spine X-Ray(s): Lumbar AP / LAT / L5-S1 PERIPHERAL IV DATA: Not applicable SIGNED BY: RT Shay(R) January 03, 2022 9:24 AM [facility] Basic metabolic 2000 panelon 01-03-2022 Anion gap [Moles/Vol] 7 mmol/L Low - [facility] Comment on above: Order Comment: Speci men Type: BLOOD SPECIMENOrdering Facility: [facility] Address: [address] [place], [place] [address] Performed By: #### 2 4321-2 ####[facility] [id number] [place] [address] [place] Calcium [Mass/Vol] 8.4 mg/dL Low 8.5-10.2 [facility] Comment on above: Order Comment: Speci men Type: BLOOD SPECIMENOrdering Facility: [facility] Address: [address] [place], [place] [address] Performed By: #### 2 4321-2 ####[facility] [id number] [place] [address] [place] Chloride [Moles/Vol] 104 mmol/L Normal 97-105 [facility] Comment on above: Order Comment: Speci men Type: BLOOD SPECIMENOrdering Facility: [facility] Address: [address] [place], [place] [address] Performed By: #### 2 4321-2 ####[facility] [id number] [place] [address] [place] CO2 [Moles/Vol] 29 mmol/L Normal 22-30 [facility] Comment on above: Order Comment: Speci men Type: BLOOD SPECIMENOrdering Facility: [facility] Address: [address] [place], [place] [address] Performed By: #### 2 4321-2 ####[facility] [id number] [place] [address] [place] Creatinine [Mass/Vol] 1.23 mg/dL High 0.73-1.22 [facility] Comment on above: Order Comment: Speci men Type: BLOOD SPECIMENOrdering Facility: [facility] Address: [address] [place], [place] [address] Performed By: #### 2 4321-2 ####[facility] [id number] [place] [address] [place] ESTIMATED GLOMERULAR FILTRATION RATE 66 mL/min/1.73m??? Normal >=60 [facility] Comment on above: Order Comment: Clarice conway Type: BLOOD SPECIMENOrdering Facility: [facility] Address: [address] [place] [address] Result Comment: Jane mated Glomerular Filtration Rate (eGFR) is calculated using the 2020 CKD-EPI creatinine equation. This equation utilizes serum creatinine, sex, and age as parameters. The creatinine assay has traceable calibration to isotope dilution-mass spectrometry. Refer to KDIGO guidelines for clinical interpretation. In patients with unstable renal function, e.g. those with acute kidney injury, the eGFR may not accurately reflect actual GFR. Performed By: #### 2 4321-2 ####[facility] [id number] [place] [address] [place] Glucose [Mass/Vol] 110 mg/dL High 74-99 [facility] Comment on above: Order Comment: Clarice zoraida Type: BLOOD SPECIMENOrdering Facility: [facility] Address: [address] [place] [address] Result Comment: The [place] Diabetes [employer] (ADA) provides guidance for cutoff values for fasting glucose and random glucose. The ADA defines fasting as no caloric intake for at least 8 hours. Fasting plasma glucose results between 100 to 125 mg/dL indicate increased risk for diabetes (prediabetes). Fasting plasma glucose results greater than or equal to 126 mg/dL meet the criteria for diagnosis of diabetes. In the absence of unequivocal hyperglycemia, results should be confirmed by repeat testing. In a patient with classic symptoms of hyperglycemia or hyperglycemic crisis, random plasma glucose results greater than or equal to 200 mg/dL meet the criteria for diagnosis of diabetes. Reference: Standards of Medical Care in Diabetes 2016, [place] [employer]. Diabetes Care. 2016.39(Suppl 1). Performed By: #### 2 4321-2 ####[facility] [id number] [place] [address] [place] Potassium [Moles/Vol] 4.3 mmol/L Normal 3.7-5.1 [facility] Comment on above: Order Comment: Speci men Type: BLOOD SPECIMENOrdering Facility: [facility] Address: [address] [place] [address] Performed By: #### 2 4321-2 ####[facility] [id number] [place] [id number] [facility] Sodium [Moles/Vol] 140 mmol/L Normal 136-144 [facility] Comment on above: Order Comment: Speci men Type: BLOOD SPECIMENOrdering Facility: [facility] Address: [address] [place] [address] Performed By: #### 2 4321-2 ####[facility] [id number] [place] [id number] [facility] Urea nitrogen [Mass/Vol] 10 mg/dL Normal 9-24 [facility] Comment on above: Order Comment: Speci men Type: BLOOD SPECIMENOrdering Facility: [facility] Address: [address] [place] [address] Performed By: #### 2 4321-2 ####[facility] [id number] [place] [id number] [facility] CASE MANAGEMon 01-03-2022 CASE MANAGEM HNO ID: [id number] Author: Gracia Lr RN Service: ? Author Type: Registered Nurse Type: Care Mgt Progress Note Filed: 01/03/2022 2:34 PM Note Text: CARE MANAGEMENT PROGRESS NOTE SERVICE DATE: 01/03/2022 SERVICE TIME: 2:29 pm LOS: 3 days After many attempts over the last couple of days, I have now spoken to someone at [facility] [place] where patient really wants to go, they have staffing issues in intake, state they will look at referral. Per rounds with WATER TRAINER this afternoon, surgeon wants patient here over the weekend. CM department will continue to follow. SIGNATURE: Gracia Lr RN PATIENT NAME: Mary Prieto Barbara DATE: January 03, 2022 TIME: 2:29 PM PAGER/CONTACT #: [phone] Normal [facility] CBC panel Auto (Bld)on 01-03 Erythrocyte distribution width (RBC) [Ratio] 15.9 % High 11.5-15.0 [facility] Comment on above: Order Comment: Speci men Type: BLOOD SPECIMENOrdering Facility: [facility] Address: [address] [place] [address] Performed By: #### 5 8410-2 ####[facility] DAY LABORATORYCLIA [id number] [address] [place] [address] [place] Hematocrit (Bld) [Volume fraction] 24.4 % Low 39.0-51.0 [facility] Comment on above: Order Comment: Speci men Type: BLOOD SPECIMENOrdering Facility: [facility] Address: [address] [place] [address] Performed By: #### 5 8410-2 ####[facility] LABORATORYCLIA [id number] [address] [place] Hemoglobin (Bld) [Mass/Vol] 7.6 g/dL Low 13.0-17.0 [facility] Comment on above: Order Comment: Speci men Type: BLOOD SPECIMENOrdering Facility: [facility] Address: [address] [place] [address] Performed By: #### 5 8410-2 ####[facility] DAY LABORATORYCLIA [id number] [place] [id number] [place] MCH (RBC) [Entitic mass] 27.4 pg Normal 26.0-34.0 [facility] Comment on above: Order Comment: Speci men Type: BLOOD SPECIMENOrdering Facility: [facility] Address: [address] [place] [address] Performed By: #### 5 8410-2 ####[facility] LABORATORYCLIA [id number] [place] [id number] [place] MCHC (RBC) [Mass/Vol] 31.1 g/dL Normal 30.5-36.0 [facility] Comment on above: Order Comment: Speci men Type: BLOOD SPECIMENOrdering Facility: [facility] Address: [address] [place] [address] Performed By: #### 5 8410-2 ####[facility] LABORATORYCLIA [id number] [address] STATES [facility] MCV (RBC) [Entitic vol] 88.1 fL Normal 80.0-100.0 [facility] Comment on above: Order Comment: Speci men Type: BLOOD SPECIMENOrdering Facility: [facility] Address: [address] [place] [address] Performed By: #### 5 8410-2 ####[facility] LABORATORYCLIA [id number] [address] [place] [address] Nucleated RBC (Bld) [#/Vol] 10*3/uL Normal <0.01 [facility] Comment on above: Order Comment: Speci men Type: BLOOD SPECIMENOrdering Facility: [facility] Address: [address] [place] [address] Performed By: #### 5 8410-2 ####[facility] LABORATORYCLIA [id number] [address] [place] Platelet mean volume (Bld) [Entitic vol] 11.6 fL Normal 9.0-12.7 [facility] Comment on above: Order Comment: Speci men Type: BLOOD SPECIMENOrdering Facility: [facility] Address: [address] [place] [address] Performed By: #### 5 8410-2 ####[facility] DAY LABORATORYCLIA [id number] [address] Platelets (Bld) [#/Vol] 177 10*3/uL Normal 150-400 [facility] Comment on above: Order Comment: Speci men Type: BLOOD SPECIMENOrdering Facility: [facility] Address: [address] [place] [address] Performed By: #### 5 8410-2 ####[facility] LABORATORYCLIA [id number] [address] OF [facility] RBC (Bld) [#/Vol] 2.77 10*6/uL Low 4.20-6.00 [facility] Comment on above: Order Comment: Speci men Type: BLOOD SPECIMENOrdering Facility: [facility] Address: [address] [place] [address] Performed By: #### 5 8410-2 ####[facility] DAY LABORATORYCLIA [id number] [address] OF [facility] WBC (Bld) [#/Vol] 5.21 10*3/uL Normal 3.70-11.00 [facility] Comment on above: Order Comment: Speci men Type: BLOOD SPECIMENOrdering Facility: [facility] Address: [address] [place] [address] Performed By: #### 5 8410-2 ####[facility] DAY LABORATORYCLIA [id number] [address] CONSULT PROGon 01-03-2022 CONSULT PROG HNO ID: [id number] Author: King Albrecht PA-C Service: Pain Management Author Type: Physician Stamp Analyst Type: Consult Progress Note Filed: 01/03/2022 8:49 AM Note Text: -------- Attestation signed by Albert Candelaria MD at 01/03/2022 9:32 AM I reviewed the pertinent patient history and agree with the PA's recommended plan for care. Albert Candelaria MD -------- INPATIENT PAIN MANAGEMENT PROGRESS NOTE Patient Name: Mary Jimenez SERVICE DATE: January 03, 2022 SERVICE TIME: 8:47 AM PRIMARY SERVICE: Ortho and Spine Consult by Dr. Steele for acute post operative pain INTERVAL HPI: Is the patient having any pain? Yes LOCATION: lumbar PAIN SCALE: 7 on a scale of 0-10 PAIN CHARACTER: aching FREQUENCY: (How often does the pain occur?) occurs constantly 61 year old WM cc low back pain post spine surgery OARRS norco 10/325 up 3 per day and lyrica 200mg tid PERTINENT ROS: denies fever, chills, diarrhea, constipation, nausea, vomiting, CP, SOB, weakness, numbness, tingling or loss of bladder bowel control Denies muscle tightness or spasms All other reviewed and negative other than HPI. PAST MEDICAL HISTORY Diagnosis Date - Anxiety - Dyslipidemia - Hypertension - Obesity 09/12/2021 - Obstructive sleep apnea - Stroke (HCC) - Urinary retention PAST SURGICAL HISTORY Procedure Laterality Date - PAST SURGICAL HISTORY OF 12/07/2014 L4-5 - PAST SURGICAL HISTORY OF Bilateral shoulder - PAST SURGICAL HISTORY OF Bilateral knees - REVISE MEDIAN N/CARPAL TUNNEL SURG Left FAMILY HISTORY Problem Relation Age of Onset - Diabetes Mother Social History Tobacco Use - Smoking status: Never Smoker - Smokeless tobacco: Never Used Substance Use Topics - Alcohol use: Yes Comment: 2 glasses of wine per day. - Drug use: Never Comment: denies tx for drug/alcohol abuse in the past. MEDICATIONS: Current Facility-Administered Medications Medication Dose Route Frequency - doxazosin 4 mg tab(s) (CARDURA) 4 mg ORAL AT BEDTIME - pregabalin 200 mg cap(s) (LYRICA) 200 mg ORAL TID - atorvastatin 80 mg tab(s) (LIPITOR) 80 mg ORAL AT BEDTIME - QUEtiapine 25 mg tab(s) (SEROquel) 25 mg ORAL BID PRN - finasteride 5 mg tab(s) (PROSCAR) 5 mg ORAL AT BEDTIME - metoprolol succinate ER 50 mg tab(s) (TOPROL XL) 50 mg ORAL DAILY - DULoxetine 30 mg cap(s) (CYMBALTA) 30 mg ORAL DAILY - baclofen 20 mg tab(s) (LIORESAL) 20 mg ORAL AT BEDTIME - doxepin 10 mg cap(s) (SINEquan) 10 mg ORAL AT BEDTIME - NaCl 0.9% iv flush bag 20 mL INTRAVENOUS PRN - sodium chloride 0.9 % (flush) 3-5 mL (BD POSIFLUSH) 3-5 mL INTRAVENOUS q 12 H - lactated ringers iv infusion 100 mL/hr INTRAVENOUS CONTINUOUS - docusate sodium 100 mg cap(s) (COLACE) 100 mg ORAL BID - cyclobenzaprine 10 mg tab(s) (FLEXERIL) 10 mg ORAL TID PRN - polyethylene glycol 3350 17 g packet (MIRALAX, GLYCOLAX) 17 g ORAL DAILY - acetaminophen 1,000 mg tab(s) (TYLENOL) 1,000 mg ORAL q 8 H - oxyCODONE IR 5-10 mg tab(s) (ROXICODONE) 5-10 mg ORAL q 3 H PRN - valsartan 160 mg tab(s) (DIOVAN) 160 mg ORAL DAILY - heparin 5,000 Units injection 5,000 Units SUBCUTANEOUS q 12 H - clindamycin 900 mg (CLEOCIN) 900 mg ORAL q 8 H PHYSICAL EXAM: Blood pressure 111/84, pulse 80, temperature 36.9 ?C (98.4 ?F), temperature source Oral, resp. rate 18, height 176.5 cm (5' 9.5 ), weight 117.5 kg (259 lb), SpO2 96 %. GENERAL: Alert, no distress, cooperative SKIN: Skin color, texture, turgor normal. No rashes or lesions. HEAD/SINUSES: No significant findings EYES: PERRLA, EOMI Heart: RRR without murmur, gallop, or rubs. No ectopy Lungs: lungs clear to auscultation no wheezing or rhonchi Abdomen: Abdomen soft, non-tender. Bowel sounds normal. No masses, organomegaly EXTREMITIES: Extremities normal, no deformities, edema, clubbing or skin discoloration. NEURO: Motor and Sensory intact DATA: Diagnostic tests reviewed for today's visit: Most recent labs Glucose (mg/dL) Date Value 01/03/2022 110 08/20/2021 103 Potassium (mmol/L) Date Value 01/03/2022 4.3 08/20/2021 4.6 Sodium (mmol/L) Date Value 01/03/2022 140 08/20/2021 134 Chloride (mmol/L) Date Value 01/03/2022 104 08/20/2021 100 CO2 (mmol/L) Date Value 01/03/2022 29 08/20/2021 28 Creatinine (mg/dL) Date Value 01/03/2022 1.23 08/20/2021 1.27 BUN (mg/dL) Date Value 01/03/2022 10 08/20/2021 14 Anion Gap (mmol/L) Date Value 01/03/2022 7 08/20/2021 6 Calcium (mg/dL) Date Value 08/20/2021 8.6 Calcium, Total (mg/dL) Date Value 01/03/2022 8.4 WBC (k/uL) Date Value 01/03/2022 5.21 RBC (m/uL) Date Value 01/03/2022 2.77 (L) Hemoglobin (g/dL) Date Value 01/03/2022 7.6 (L) Hematocrit (%) Date Value 01/03/2022 24.4 (L) MCV (fL) Date Value 01/03/2022 88.1 MCH (more content not included)... Normal [facility] THERAPY NTon 01-03-2022 THERAPY NT HNO ID: [id number] Author: Dionte Estrada PT Service: Physical Therapy Author Type: Physical Therapist Type: Therapy (PT/OT/Speech/Resp) Filed: 01/03/2022 2:12 PM Note Text: Physical Therapy Treatment SERVICE DATE: 01/03/2022 SERVICE TIME: 1320 to 1349 ROOM: [place] [address] Recommended Discharge Disposition: Subacute/SNF Recommended Discharge Disposition Comments: Pt will benefit from short stay at SNF due to inconsistency with mobility/cognition and poor safey awareness at times. 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;anticipate community discharge/previous community dweller;ongoing intervention of multiple therapy disciplines;decline in functional status requiring daily skilled care Anticipated Discharge Needs: Physical Assist at Home;Supervision at Home Physical Assist at Home for: Cleaning;Laundry;Meals;S afety;Transportation;Isabela pping Supervision at Home due to: Decreased safety awareness Recommended Discharge Equipment: To Be Determined PT 6 Clicks Score: 20 Precautions/Activity Restrictions: Fall Risk;Spine;Impulsive with Activity Current Hospital Course: Revision L4-pelvis instrumented fusion Reason for Hospital Admission: spine sx Relevant Past Medical History: Migraines, HTN, DEANA, CVA 2013, L5/S1 transforaminal lumbar interbody fusion 08/16/21, spinal stimulator, dyslipedemia, urinary retention,Anxiety, Obesity, Urinary Retention, L4-L5 surgery, suresh shoulder surgery, Suresh knee surgery Response to Therapy Interventions: Good participation in activities, On-track to achieve discharge goals Continue skilled needs due to: Functional mobility/skill impairments, Safety concerns Physical Therapy Problem List: Education Deficit;Safety Deficits;Decreased Activity Tolerance;Decreased Strength;Functional Mobility Impairment;Balance Impaired Treatment Interventions: Education;Energy Conservation Training;Joint Mobility;Strengthening;F unctional Mobility Training;Balance Training;Neuromuscular Re-education Plan for next visit: Gait training, Fall prevention, Chair transfer training, Standing Balance, Standing Tolerance, Walker Training Home Environment Patient Lives With: Self/Alone;Other: See Comment (sister, mom and friends help) Assistance Available: PRN Entry To Home: Stairs;With Rail Number Of Stairs Into Home: 5 Number Of Stairs To Bed/Bath: 1st floor set up Stairs to Bed/Bath with: Unilateral Rail Tub/Shower Type: tub shower Laundry: first floor Equipment Owned: Cane;Wheeled Walker;Wire Transfer Clerk;Grab Bars-Shower;ADL Kit;Elevated Toilet Seat;Shower Chair;Elastic Shoe Laces;Hospital Bed (PEr pt he does not have elevated toilet seat, sock aid etc.) Prior Functional Level: Required Assistance Assistance Required With: Cleaning;Laundry;Transpo rtation Prior Functional Level Comments: Patient vague and questionable historian. Has hospital bed but sleeping on sofa with his dog. Unclear using walker as per pt initially for 2 weeks he did not use walker. Per pt spends most of his time laying down. Microwaves meals. Online orders from [employer]. Per pt he puts on his socks without sockaid. Reaching down to floor to refil dog food. No falls in last 5 months. Was in SNF from September 17 -November 17 Patient Report: Pt cognition improved and agreeable to PT CURRENT FUNCTIONAL STATUS: Most recent performance Current Functional Mobility Assist Level Additional Information Rolling Stand By Assistance;Additional Information Supine to Sit Supervision;Additional Information demo'd good log roll Sit to Supine Supervision;Additional Information pt demo'd good log roll Scooting Supervision Sit to Stand Contact Guard Assistance impulsive at times Stand to Sit Contact Guard Assistance Bed to Chair Contact Guard Assistance Bed To Chair Transfer Type: Stepping Bed To Chair Transfer Equipment: Wheeled Walker;Gait Belt Toilet/Commode Gait Contact Guard Assistance Gait Device: Wheeled Walker Gait Distance (feet): 165 ft Pt initially appeared steady however as fatigue set in pt became unsteady and incresaed trunk flexion Stairs Contact Guard Assistance;Additional Information Stairs Device: Rail Number of Stairs: 3 Suresh rail Curb Step Car Transfer Blank paez indicate activity not attempted Gait Deviations Left Lower Extremity: Heel strike during initial stance decreased General Deviations/Observations: Antalgic gait;Flexed trunk posture;Michaela decreased;UE weight bearing on assistive device excessive;Improper distancing from assistive device;Step length decreased Balance: Static Standing;Dynamic Standing Static Standing Balance: Good Patient able to maintain balance without handhold support, limited postural sway Dynamic Standing Balance: Good Patien (more content not included)... [facility] THERAPY NT HNO ID: [id number] Author: Christine Recio OT/Ida Service: Occupational Therapy Author Type: Occupational Therapist Type: Therapy (PT/OT/Speech/Resp) Filed: 01/03/2022 10:53 AM Note Text: Occupational Therapy Treatment SERVICE DATE: 01/03/2022 SERVICE TIME: 1012 to 1037 ROOM: [id number] Recommended Discharge Disposition: Subacute/SNF Recommended Discharge Disposition Due to: Patient requires daily, facility-based rehabilitation from at least one discipline due to:;decline in functional status requiring daily skilled care;ongoing intervention of multiple therapy disciplines Anticipated Discharge Needs: Physical Assist at Home;Supervision at Home Physical Assist at Home for: Cleaning;Laundry;Meals;S afety;Transportation;Isabela pping Supervision at Home due to: Decreased safety awareness OT 6 Clicks Score: 22 Precautions/Activity Restrictions: Fall Risk;Spine;Impulsive with Activity Current Hospital Course: Revision L4-pelvis instrumented fusion Reason for Hospital Admission: spine sx Relevant Past Medical History: Migraines, HTN, DEANA, CVA 2013, L5/S1 transforaminal lumbar interbody fusion 08/16/21, spinal stimulator, dyslipedemia, urinary retention,Anxiety, Obesity, Urinary Retention, L4-L5 surgery, suresh shoulder surgery, Suresh knee surgery Response to Therapy Interventions: Good participation in activities, Pain, Requires additional time to complete activities, Needs frequent redirection or re-instruction. Patient continues to present with fluctuating cognition and varying performance with self care tasks. Patient requires frequent cueing for safety awareness due to impulsivity. Continue skilled needs due to: Safety concerns, Continued monitoring of vital signs during mobility required, Functional impairment Occupational Therapy Problem List: Education Deficit;Impaired Self Care;Decreased Activity Tolerance;Safety Deficits;Functional Mobility Impairment Treatment Interventions: Education;Self Care / Home Management;Energy Conservation Training;Functional Mobility Training Home Environment Patient Lives With: Self/Alone;Other: See Comment (sister, mom and friends help) Assistance Available: PRN Entry To Home: Stairs;With Rail Number Of Stairs Into Home: 5 Number Of Stairs To Bed/Bath: 1st floor set up Stairs to Bed/Bath with: Unilateral Rail Tub/Shower Type: tub shower Laundry: first floor Equipment Owned: Cane;Wheeled Walker;Wire Transfer Clerk;Grab Bars-Shower;ADL Kit;Elevated Toilet Seat;Shower Chair;Elastic Shoe Laces;Hospital Bed (PEr pt he does not have elevated toilet seat, sock aid etc.) Prior Functional Level: Required Assistance Assistance Required With: Cleaning;Laundry;Transpo rtation Prior Functional Level Comments: Patient vague and questionable historian. Has hospital bed but sleeping on sofa with his dog. Unclear using walker as per pt initially for 2 weeks he did not use walker. Per pt spends most of his time laying down. Microwaves meals. Online orders from [employer]. Per pt he puts on his socks without sockaid. Reaching down to floor to refil dog food. No falls in last 5 months. Was in SNF from September 17 -November 17 Patient Report: I woke up really confused today CURRENT FUNCTIONAL STATUS: Most recent performance Current Activities of Daily Living Assist Level Additional Information Feeding Set Up Grooming Set Up Bathing Upper Body Set Up Bathing Lower Body Minimal Assistance Dressing Upper Body Set Up Dressing Lower Body Minimal Assistance Toileting Contact Guard Assistance Instrumental Activities of Daily Living Assist Level Additional Information Meal/Beverage Prep Cleaning Laundry Medication Management with Strategies Functional Mobility Assist Level Additional Information Rolling Supine to Sit Stand By Assistance Sit to Supine Stand By Assistance Scooting Sit to Stand Contact Guard Assistance Stand to Sit Stand By Assistance Bed to Chair Stand By Assistance Stepping Wheeled Walker Toilet/Commode Shower Functional Mobility Contact Guard Assistance Wheeled Walker Blank paez indicate activity not attempted Learning/Educational Needs: Discharge Plan;Equipment;Family Education/Training;Funct ional Activities/Mobility;Plan of Care;Precautions;Rehabil itation Techniques and Procedures;Safety;Self Care Goals for Plan of Care: Patient /Caregiver Goals: Go Home Goals: Patient will demonstrate progress with self-care, cognitive and/or coping needs identified to allow safe discharge to home with available support and/or physical assistance. Progress Toward Goals: Progressing as expected Rehab Potential: Good Patient will be discontinued from Occupational Therapy when no further skilled needs are identified in this setting. PLAN: OT Frequency: 3 times per week Plan of Care developed with: Patient TREATMENT INTERVENTIONS: Therapy Diagnosis: Reduced mobility-other;Decreased activities of daily living (ADL);Muscle Weaknes (more content not included)... [facility] XR LUMBAR 2V AP/LATon 2021 XR LUMBAR 2V AP/LAT * * *Final Report* * * DATE OF EXAM: Jan 03 2022 9:21AM LUX 5229 - XR LUMBAR 2V AP/LAT / PROCEDURE REASON: Post-operative / post-procedure assessment, asymptomatic * * * * Physician Interpretation * * * * EXAMINATION: XR LUMBAR 2V AP/LAT PATIENT/TECHNOLOGIST PROVIDED HISTORY: POST OP LUMBAR 2XDAYS STANDING CLINICAL INFORMATION: 61 years old Male with Post-operative / post-procedure assessment, asymptomatic TECHNIQUE: XR LUMBAR 2V AP/LAT Laterality: LEFT Number of different views (projections): 2 COMPARISON: Lumbar spine radiographs 01/01/2022, 12/31/2021, CT 11/24/2021 RESULT: Lumbar spine: Counting reference: Lumbosacral junction. For the purposes of this report, Upper L4 is considered the level of the iliac crest and there are 5 lumbar-type vertebrae. Anatomic Variants: None. Post-op assessment: Status post revision posterior decompression and instrumented fusion now extending from L4 to the ileum with LEFT transpedicular screw at L4, bilateral transpedicular screws at L5 and S1, bilateral trans-sacroiliac joint screws with interconnecting rods. Interbody cage at L5-S1. Anterior interbody fusion L4-L5 with interbody graft and screws. Hardware is intact. A drain is present. Overlying surgical parag. Degenerative device in the dorsal lumbar soft tissues. Alignment: Alignment is satisfactory. Vertebral bodies: Vertebral body heights are maintained. Spine articulations: Interbody cage at L5-S1 and interbody graft at L4-L5. Remainder of the disc spaces are maintained. IMPRESSION: Postoperative changes. Senior Informatica Developer: OLI Transcribe Date/Time: Jan 03 2022 10:01A Dictated by : VEDA KIRKLAND DO This examination was interpreted and the report reviewed and electronically signed by: VEDA KIRKLAND DO on Jan 03 2022 10:10AM EST [id number] Normal [facility] Basic metabolic 2000 panelon 01-02-2022 Anion gap [Moles/Vol] 7 mmol/L Low 9-18 [facility] Comment on above: Order Comment: Speci men Type: BLOOD SPECIMENOrdering Facility: [facility] Address: [address] [place], [place] [address] Performed By: #### 2 4321-2 ####[facility] DAY LABORATORYCLIA [id number] [place] [address] [place] Calcium [Mass/Vol] 8.4 mg/dL Low 8.5-10.2 [facility] Comment on above: Order Comment: Speci men Type: BLOOD SPECIMENOrdering Facility: [facility] Address: [address] [place] [address] Performed By: #### 2 4321-2 ####[facility] DAY LABORATORYCLIA [id number] [place] [address] [place] Chloride [Moles/Vol] 100 mmol/L Normal 97-105 [facility] Comment on above: Order Comment: Speci men Type: BLOOD SPECIMENOrdering Facility: [facility] Address: [address] [place] [address] Performed By: #### 2 4321-2 ####[facility] DAY LABORATORYCLIA [id number] [address] [place] [address] [place] [facility] CO2 [Moles/Vol] 30 mmol/L Normal 22-30 [facility] Comment on above: Order Comment: Speci men Type: BLOOD SPECIMENOrdering Facility: [facility] Address: [address] [place] [address] Performed By: #### 2 4321-2 ####[facility] DAY LABORATORYCLIA [id number] [address] STATES OF [facility] Creatinine [Mass/Vol] 1.22 mg/dL Normal 0.73-1.22 [facility] Comment on above: Order Comment: Speci men Type: BLOOD SPECIMENOrdering Facility: [facility] Address: [address] [place] [address] Performed By: #### 2 4321-2 ####[facility] DAY LABORATORYCLIA [id number] [address] ESTIMATED GLOMERULAR FILTRATION RATE 67 mL/min/1.73m??? Normal >=60 [facility] Comment on above: Order Comment: Speci men Type: BLOOD SPECIMENOrdering Facility: [facility] Address: [address] [place] [address] Result Comment: Jane mated Glomerular Filtration Rate (eGFR) is calculated using the 2020 CKD-EPI creatinine equation. This equation utilizes serum creatinine, sex, and age as parameters. The creatinine assay has traceable calibration to isotope dilution-mass spectrometry. Refer to KDIGO guidelines for clinical interpretation. In patients with unstable renal function, e.g. those with acute kidney injury, the eGFR may not accurately reflect actual GFR. Performed By: #### 2 4321-2 ####[facility] DAY LABORATORYCLIA [id number] [place] [address] [place] Glucose [Mass/Vol] 117 mg/dL High 74-99 [facility] Comment on above: Order Comment: Speci men Type: BLOOD SPECIMENOrdering Facility: [facility] Address: [address] [place] [address] Result Comment: The [place] [employer] (ADA) provides guidance for cutoff values for fasting glucose and random glucose. The ADA defines fasting as no caloric intake for at least 8 hours. Fasting plasma glucose results between 100 to 125 mg/dL indicate increased risk for diabetes (prediabetes). Fasting plasma glucose results greater than or equal to 126 mg/dL meet the criteria for diagnosis of diabetes. In the absence of unequivocal hyperglycemia, results should be confirmed by repeat testing. In a patient with classic symptoms of hyperglycemia or hyperglycemic crisis, random plasma glucose results greater than or equal to 200 mg/dL meet the criteria for diagnosis of diabetes. Reference: Standards of Medical Care in Diabetes 2016, [employer]. Diabetes Care. 2016.39(Suppl 1). Performed By: #### 2 4321-2 ####[facility] LABORATORYCLIA [id number] [place] [id number] [place] Potassium [Moles/Vol] 3.8 mmol/L Normal 3.7-5.1 [facility] Comment on above: Order Comment: Lovei men Type: BLOOD SPECIMENOrdering Facility: [facility] Address: [address] [place] [address] Performed By: #### 2 4321-2 ####[facility] DAY LABORATORYCLIA [id number] [place] [id number] [place] Sodium [Moles/Vol] 137 mmol/L Normal 136-144 [facility] Comment on above: Order Comment: Speci men Type: BLOOD SPECIMENOrdering Facility: [facility] Address: [address] [place] [address] Performed By: #### 2 4321-2 ####[facility] DAY LABORATORYCLIA [id number] [place] [address] [place] Urea nitrogen [Mass/Vol] 10 mg/dL Normal 9-24 [facility] Comment on above: Order Comment: Speci men Type: BLOOD SPECIMENOrdering Facility: [facility] Address: [address] [place], [place] [id number] Performed By: #### 2 4321-2 ####[facility] DAY LABORATORYCLIA [id number] [address] CASE MANAGEMon 01-02-2022 CASE MANAGEM HNO ID: [id number] Author: Gracia Lr RN Service: ? Author Type: Registered Nurse Type: Care Mgt Progress Note Filed: 01/02/2022 4:22 PM Note Text: CARE MANAGEMENT PROGRESS NOTE SERVICE DATE: 01/02/2022 SERVICE TIME: 4:17 pm LOS: 2 days Have had no response from referral placed yesterday in [facility] to [facility], also left them (3) phone messages, sister said she knows someone there and she found out that intake person not there today, someone else covering. More referrals placed, and therapy told me he also could very well be ready to go home. Per WATER TRAINER , not ready for DC today. CM department will continue to follow. SIGNATURE: Gracia Lr RN PATIENT NAME: Mary Jimenez DATE: January 02, 2022 TIME: 4:17 PM PAGER/CONTACT #: [phone] Normal [facility] CBC panel Auto (Bld)on 01-02 Erythrocyte distribution width (RBC) [Ratio] 16.3 % High 11.5-15.0 [facility] Comment on above: Order Comment: Speci men Type: BLOOD SPECIMENOrdering Facility: [facility] Address: [address] [place] [id number] Performed By: #### 5 8410-2 ####[facility] DAY LABORATORYCLIA [id number] [address] Hematocrit (Bld) [Volume fraction] 26.4 % Low 39.0-51.0 [facility] Comment on above: Order Comment: Speci men Type: BLOOD SPECIMENOrdering Facility: [facility] Address: [address] [place] [address] Performed By: #### 5 8410-2 ####[facility] LABORATORYCLIA [id number] [address] [place] Hemoglobin (Bld) [Mass/Vol] 8.1 g/dL Low 13.0-17.0 [facility] Comment on above: Order Comment: Speci men Type: BLOOD SPECIMENOrdering Facility: [facility] Address: [address] [place] [address] Performed By: #### 5 8410-2 ####[facility] DAY LABORATORYCLIA [id number] [address] [place] MCH (RBC) [Entitic mass] 26.9 pg Normal 26.0-34.0 [facility] Comment on above: Order Comment: Speci men Type: BLOOD SPECIMENOrdering Facility: [facility] Address: [address] [place] [address] Performed By: #### 5 8410-2 ####[facility] LABORATORYCLIA [id number] [address] [place] MCHC (RBC) [Mass/Vol] 30.7 g/dL Normal 30.5-36.0 [facility] Comment on above: Order Comment: Speci men Type: BLOOD SPECIMENOrdering Facility: [facility] Address: [address] [place], [place] [address] Performed By: #### 5 8410-2 ####[facility] LABORATORYCLIA [id number] [address] MCV (RBC) [Entitic vol] 87.7 fL Normal 80.0-100.0 [facility] Comment on above: Order Comment: Speci men Type: BLOOD SPECIMENOrdering Facility: [facility] Address: [address] [place], [place] [address] Performed By: #### 5 8410-2 ####[facility] DAY LABORATORYCLIA [id number] [address] [place], [place] [id number] [place] Nucleated RBC (Bld) [#/Vol] 10*3/uL Normal <0.01 [facility] Comment on above: Order Comment: Speci men Type: BLOOD SPECIMENOrdering Facility: [facility] Address: [address] [place] [address] Performed By: #### 5 8410-2 ####[facility] LABORATORYCLIA [id number] [address] [place], [place] [id number] [place] Platelet mean volume (Bld) [Entitic vol] 11.4 fL Normal 9.0-12.7 [facility] Comment on above: Order Comment: Speci men Type: BLOOD SPECIMENOrdering Facility: [facility] Address: [address] [place] [address] Performed By: #### 5 8410-2 ####[facility] DAY LABORATORYCLIA [id number] [address] [place] Platelets (Bld) [#/Vol] 177 10*3/uL Normal 150-400 [facility] Comment on above: Order Comment: Speci men Type: BLOOD SPECIMENOrdering Facility: [facility] Address: [address] [place] [address] Performed By: #### 5 8410-2 ####[facility] DAY LABORATORYCLIA [id number] [address] [place] [address] [place] RBC (Bld) [#/Vol] 3.01 10*6/uL Low 4.20-6.00 [facility] Comment on above: Order Comment: Speci men Type: BLOOD SPECIMENOrdering Facility: [facility] Address: [address] [place] [address] Performed By: #### 5 8410-2 ####[facility] DAY LABORATORYCLIA [id number] [place] [address] [facility] WBC (Bld) [#/Vol] 6.59 10*3/uL Normal 3.70-11.00 [facility] Comment on above: Order Comment: Speci men Type: BLOOD SPECIMENOrdering Facility: [facility] Address: [address] [place] [phone] Performed By: #### 5 8410-2 ####[facility] DAY LABORATORYCLIA [id number] [address] [place] [address] CONSULTon 01-02-2022 CONSULT HNO ID: [id number] Author: King Albrecht PA-C Service: Pain Management Author Type: Physician Stamp Analyst Type: Consults Filed: 01/02/2022 7:52 AM Note Text: -------- Attestation signed by Naeem Banks MD at 01/02/2022 8:16 AM Agree with above. -------- INPATIENT PAIN MANAGEMENT CONSULT Patient Name: Mary Jimenez SERVICE DATE: January 02, 2022 SERVICE TIME: 7:46 AM PRIMARY SERVICE: Ortho and Spine Consult by Dr. Steele for acute post operative pain INTERVAL HPI: Is the patient having any pain? Yes LOCATION: lumbar PAIN SCALE: 7 on a scale of 0-10 PAIN CHARACTER: aching FREQUENCY: (How often does the pain occur?) occurs constantly 61 year old WM cc low back pain post spine surgery OARRS norco 10/325 up 3 per day and lyrica 200mg tid PERTINENT ROS: denies fever, chills, diarrhea, constipation, nausea, vomiting, CP, SOB, weakness, numbness, tingling or loss of bladder bowel control Denies muscle tightness or spasms All other reviewed and negative other than HPI. PAST MEDICAL HISTORY Diagnosis Date - Anxiety - Dyslipidemia - Hypertension - Obesity 09/12/2021 - Obstructive sleep apnea - Stroke (HCC) - Urinary retention PAST SURGICAL HISTORY Procedure Laterality Date - PAST SURGICAL HISTORY OF 12/07/2014 L4-5 - PAST SURGICAL HISTORY OF Bilateral shoulder - PAST SURGICAL HISTORY OF Bilateral knees - REVISE MEDIAN N/CARPAL TUNNEL SURG Left FAMILY HISTORY Problem Relation Age of Onset - Diabetes Mother Social History Tobacco Use - Smoking status: Never Smoker - Smokeless tobacco: Never Used Substance Use Topics - Alcohol use: Yes Comment: 2 glasses of wine per day. - Drug use: Never Comment: denies tx for drug/alcohol abuse in the past. MEDICATIONS: Current Facility-Administered Medications Medication Dose Route Frequency - doxazosin 4 mg tab(s) (CARDURA) 4 mg ORAL AT BEDTIME - pregabalin 200 mg cap(s) (LYRICA) 200 mg ORAL TID - atorvastatin 80 mg tab(s) (LIPITOR) 80 mg ORAL AT BEDTIME - QUEtiapine 25 mg tab(s) (SEROquel) 25 mg ORAL BID PRN - finasteride 5 mg tab(s) (PROSCAR) 5 mg ORAL AT BEDTIME - metoprolol succinate ER 50 mg tab(s) (TOPROL XL) 50 mg ORAL DAILY - DULoxetine 30 mg cap(s) (CYMBALTA) 30 mg ORAL DAILY - baclofen 20 mg tab(s) (LIORESAL) 20 mg ORAL AT BEDTIME - doxepin 10 mg cap(s) (SINEquan) 10 mg ORAL AT BEDTIME - NaCl 0.9% iv flush bag 20 mL INTRAVENOUS PRN - sodium chloride 0.9 % (flush) 3-5 mL (BD POSIFLUSH) 3-5 mL INTRAVENOUS q 12 H - lactated ringers iv infusion 150 mL/hr INTRAVENOUS CONTINUOUS - vancomycin 1.5 g in D5W 250 mL (VANCOCIN) 1.5 g INTRAVENOUS q 24 HR - oxyCODONE-acetaminophen 5-325 mg 1-2 tablet (PERCOCET) 1-2 tablet ORAL q 6 H PRN - docusate sodium 100 mg cap(s) (COLACE) 100 mg ORAL BID - HYDROmorphone SHAPING MACHINE TENDER 0.5 mg/mL in NaCl 0.9% 100 mL INTRAVENOUS CONTINUOUS - cyclobenzaprine 10 mg tab(s) (FLEXERIL) 10 mg ORAL TID PRN - polyethylene glycol 3350 17 g packet (MIRALAX, GLYCOLAX) 17 g ORAL DAILY - COVID-19 vaccine (PF) 30 mcg injection (COMIRNATY, PFIZER) 30 mcg INTRAMUSCULAR ONCE (IMMUNIZATION) PHYSICAL EXAM: Blood pressure 111/52, pulse 96, temperature 37 ?C (98.6 ?F), temperature source Oral, resp. rate 18, height 176.5 cm (5' 9.5 ), weight 117.5 kg (259 lb), SpO2 93 %. GENERAL: Alert, no distress, cooperative SKIN: Skin color, texture, turgor normal. No rashes or lesions. HEAD/SINUSES: No significant findings EYES: PERRLA, EOMI Heart: RRR without murmur, gallop, or rubs. No ectopy Lungs: lungs clear to auscultation no wheezing or rhonchi Abdomen: Abdomen soft, non-tender. Bowel sounds normal. No masses, organomegaly EXTREMITIES: Extremities normal, no deformities, edema, clubbing or skin discoloration. NEURO: Motor and Sensory intact DATA: Diagnostic tests reviewed for today's visit: Most recent labs Glucose (mg/dL) Date Value 01/02/2022 117 08/20/2021 103 Potassium (mmol/L) Date Value 01/02/2022 3.8 08/20/2021 4.6 Sodium (mmol/L) Date Value 01/02/2022 137 08/20/2021 134 Chloride (mmol/L) Date Value 01/02/2022 100 08/20/2021 100 CO2 (mmol/L) Date Value 01/02/2022 30 08/20/2021 28 Creatinine (mg/dL) Date Value 01/02/2022 1.22 08/20/2021 1.27 BUN (mg/dL) Date Value 01/02/2022 10 08/20/2021 14 Anion Gap (mmol/L) Date Value 01/02/2022 7 08/20/2021 6 Calcium (mg/dL) Date Value 08/20/2021 8.6 Calcium, Total (mg/dL) Date Value 01/02/2022 8.4 WBC (k/uL) Date Value 01/02/2022 6.59 RBC (m/uL) Date Value 01/02/2022 3.01 (L) Hemoglobin (g/dL) Date Value 01/02/2022 8.1 (L) Hematocrit (%) Date Value 01/02/2022 26.4 (L) MCV (fL) Date Value 01/02/2022 87.7 MCH (pg) Date Value 01/02/2022 26.9 MCHC (g/dL) Date Value 01/02/2022 30.7 RDW-C (more content not included)... [facility] CONSULT PROGon 01-02-2022 CONSULT PROG HNO ID: [id number] Author: Kumar Mock MD Service: General Internal Medicine Author Type: Physician Type: Consult Progress Note Filed: 01/02/2022 7:05 PM Note Text: CONSULT NOTE - INTERNAL MEDICINE PATIENT NAME: Mary Jimenez SERVICE DATE: 01/02/2022 SERVICE TIME: 7:03 PM ADMITTING PHYSICIAN: Loyda Setele MD SUBJECTIVE: Patient denies any CP, SOB, Dizziness, Palpitations, Abdominal Pain, Nausea or Vomiting. He is passing flatus, denies any urinary problems after Lira catheter was removed earlier His pain is controlled well OBJECTIVE PHYSICAL EXAM: Patient Vitals for the past 24 hrs: BP Temp Temp src Pulse Resp SpO2 01/02/22 1621 123/52 36.7 ?C (98.1 ?F) Oral 78 18 97 % 01/02/22 1300 105/51 37.1 ?C (98.8 ?F) Oral 99 17 95 % 01/02/22 1200 129/109 37.8 ?C (100 ?F) Oral 111 17 94 % 01/02/22 0843 113/52 36.8 ?C (98.2 ?F) Oral 110 16 97 % 01/02/22 0444 111/52 37 ?C (98.6 ?F) Oral 96 18 93 % 01/02/22 0029 127/68 36.3 ?C (97.3 ?F) Oral 86 18 95 % 01/01/22 2131 123/60 36.8 ?C (98.2 ?F) Oral 89 16 96 % Body mass index is 37.7 kg/m?. GENERAL: no distress LUNGS: Lungs clear to auscultation, Fair air entry. CARDIAC: normal S1 and S2; no rubs or gallops ABDOMEN: Abdomen soft, non-tender. BS normal. EXTREMETIES: Normal ankle DF Bilateral Problem List ACTIVE PROBLEM LIST Adjustment Disorder With Anxious Mood Intractable Chronic Migraine Without Aura Chronic Pain Syndrome Opioid Dependence (Hcc) Primary Hypertension Cerebrovascular Accident (Cva) Due to Thrombosis (Hcc) Spondylolisthesis, Lumbar Region Status Post Lumbar Spinal Fusion Mixed Hyperlipidemia Bph (Benign Prostatic Hyperplasia) Gerd (Gastroesophageal Reflux Disease) Ckd (Chronic Kidney Disease) Stage 3, Gfr 30-59 Ml/Min ([facility]) Post-Operative Infection Obesity Delirium Back Pain Low Back Pain Weakness of Left Lower Extremity Sleep Apnea Lumbar Pseudoarthrosis Obesity, Class II, Bmi 35-39.9 DATA: Diagnostic tests reviewed for today's visit: Most recent labs: CBC, Coags, BMP, Mg, Phos Recent Labs 01/02/22 0305 01/01/22 0312 01/01/22 0121 WBC 6.59 8.29 8.74 HB 8.1* 8.9* 9.3* HCT 26.4* 28.1* 29.6* PLT 177 202 206 NA 137 136 -- K 3.8 4.2 -- CHLOR 100 99 -- CO2 30 29 -- BUN 10 11 -- CREAT 1.22 1.31* -- GLUC 117* 125* -- CA 8.4* 8.5 -- Assessment/Plan: 1. Status post ?Revision L4-pelvis instrumented fusion: Increasing activities with therapy, doing well overall. Pain is controlled better.. 2. Hypertension, essential: Continue metoprolol with parameters as ordered. 3. History of CVA with no significant residual deficits: Patient has been on Plavix, he had CVA in 2014, to be resumed when cleared by surgery. 4. Migraine headaches, not intractable, without aura: He feels he has been doing well with his current treatment. 5. BPH: Continue present management 6. Hyperlipidemia, mixed: Continue statins. 7. Obstructive sleep apnea: PPI. CPAP. 8. CKD stage III: Serum creatinine is mildly improved. 9. GERD: Continue PPI SIGNATURE: Kumar Mock MD DATE: January 02, 2022 TIME: 7:03 PM This note was partially created using voice recognition software and is inherently subject to errors including those of syntax and sound-alike substitutions which may escape proofreading. In such instances, original meaning may be extrapolated by contextual derivation [facility] THERAPY NTon 01-02-2022 THERAPY NT HNO ID: [id number] Author: Christine Recio OT/L Service: Occupational Therapy Author Type: Occupational Therapist Type: Therapy (PT/OT/Speech/Resp) Filed: 01/02/2022 3:20 PM Note Text: Occupational Therapy Treatment SERVICE DATE: 01/02/2022 SERVICE TIME: 1440 to 1510 ROOM: [place] [address] Recommended Discharge Disposition: Home OT Anticipated Discharge Needs: Physical Assist at Home;Supervision at Home Physical Assist at Home for: Cleaning;Laundry;Meals;S afety;Transportation;Isabela pping Supervision at Home due to: Decreased safety awareness OT 6 Clicks Score: 24 Precautions/Activity Restrictions: Fall Risk;Spine;Impulsive with Activity Current Hospital Course: Revision L4-pelvis instrumented fusion Reason for Hospital Admission: spine sx Relevant Past Medical History: Migraines, HTN, DEANA, CVA 2013, L5/S1 transforaminal lumbar interbody fusion 08/16/21, spinal stimulator, dyslipedemia, urinary retention,Anxiety, Obesity, Urinary Retention, L4-L5 surgery, suresh shoulder surgery, Suresh knee surgery Response to Therapy Interventions: Good participation in activities, On-track to achieve discharge goals, Requires additional time to complete activities, Pain, Needs frequent redirection or re-instruction, Improved tolerance for activity. Recommend increased supervision due to short term recall deficits and decreased safety awareness. Continue skilled needs due to: Safety concerns, Continued monitoring of vital signs during mobility required, Functional impairment Occupational Therapy Problem List: Education Deficit;Impaired Self Care;Decreased Activity Tolerance;Safety Deficits;Functional Mobility Impairment Treatment Interventions: Education;Self Care / Home Management;Energy Conservation Training;Functional Mobility Training Home Environment Patient Lives With: Self/Alone;Other: See Comment (sister, mom and friends help) Assistance Available: PRN Entry To Home: Stairs;With Rail Number Of Stairs Into Home: 5 Number Of Stairs To Bed/Bath: 1st floor set up Stairs to Bed/Bath with: Unilateral Rail Tub/Shower Type: tub shower Laundry: first floor Equipment Owned: Cane;Wheeled Walker;Wire Transfer Clerk;Grab Bars-Shower;ADL Kit;Elevated Toilet Seat;Shower Chair;Elastic Shoe Laces;Hospital Bed (PEr pt he does not have elevated toilet seat, sock aid etc.) Prior Functional Level: Required Assistance Assistance Required With: Cleaning;Laundry;Transpo rtation Prior Functional Level Comments: Patient vague and questionable historian. Has hospital bed but sleeping on sofa with his dog. Unclear using walker as per pt initially for 2 weeks he did not use walker. Per pt spends most of his time laying down. Microwaves meals. Online orders from [employer]. Per pt he puts on his socks without sockaid. Reaching down to floor to refil dog food. No falls in last 5 months. Was in SNF from September 17 -November 17 Patient Report: Patient agreeable to OT CURRENT FUNCTIONAL STATUS: Most recent performance Current Activities of Daily Living Assist Level Additional Information Feeding Set Up Grooming Set Up Bathing Upper Body Set Up Bathing Lower Body Total Assistance Dressing Upper Body Set Up Dressing Lower Body Total Assistance Toileting Maximal Assistance Instrumental Activities of Daily Living Assist Level Additional Information Meal/Beverage Prep Cleaning Laundry Medication Management with Strategies Functional Mobility Assist Level Additional Information Rolling Supine to Sit Moderate Assistance Sit to Supine Stand By Assistance Scooting Sit to Stand Contact Guard Assistance Stand to Sit Stand By Assistance Bed to Chair Stand By Assistance Stepping Wheeled Walker Toilet/Commode Shower Functional Mobility Contact Guard Assistance Wheeled Walker Blank paez indicate activity not attempted Learning/Educational Needs: Discharge Plan;Equipment;Family Education/Training;Funct ional Activities/Mobility;Plan of Care;Precautions;Rehabil itation Techniques and Procedures;Safety;Self Care Goals for Plan of Care: Patient /Caregiver Goals: Go Home Goals: Patient will demonstrate progress with self-care, cognitive and/or coping needs identified to allow safe discharge to home with available support and/or physical assistance. Progress Toward Goals: Progressing as expected Rehab Potential: Good Patient will be discontinued from Occupational Therapy when no further skilled needs are identified in this setting. PLAN: OT Frequency: 3 times per week Plan of Care developed with: Patient TREATMENT INTERVENTIONS: Therapy Diagnosis: Reduced mobility-other;Decreased activities of daily living (ADL);Muscle Weakness (generalized) Interventions Provided: Self Detention Management (78563) Self Detention Management (57584) Treatment Minutes: 30 $ Self Detention Management (04636) Billed Units: 2 units Training AND education provided in: Activity adaption / compensatory strategies, [employer] (more content not included)... [facility] THERAPY NT HNO ID: [id number] Author: Nadira Maravilla PT Service: Physical Therapy Author Type: Physical Therapist Type: Therapy (PT/OT/Speech/Resp) Filed: 01/02/2022 2:54 PM Note Text: Physical Therapy Treatment SERVICE DATE: 01/02/2022 SERVICE TIME: 1345 to 1430 ROOM: [id number] Recommended Discharge Disposition: Acute Rehab Recommended Discharge Disposition Comments: Currently recommending short stay in [place]. Anticipate pt to progress home with STRICT 24hrs assist/supervision. Pending stairs when approp. 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;anticipate community discharge/previous community dweller;ongoing intervention of multiple therapy disciplines;decline in functional status requiring daily skilled care Anticipated Discharge Needs: Undetermined Physical Assist at Home for: Cleaning;Laundry;Meals;S tairs;Safety;Self Care;Shopping;Transporta tion Recommended Discharge Equipment: To Be Determined PT 6 Clicks Score: 19 Patient sleeping soundly when PT entered the room. Pt seem confused as PT woke pt up. Very pleasant. Agreeable to do mobility. IMPULSIVE. Pt oriented patient and reminded on precautions. Pt able to quickly remember his precaution once educated. Discussed d/c recommendation for Rehab vs home with STRICT assist/supervision. Per pt exwife lives few streets down but does not have 24hrs assist/supervision. Demonstrates impaired functional mobility, safety and strength. Will f/u as approp. Precautions/Activity Restrictions: Fall Risk;Spine;Impulsive with Activity Current Hospital Course: Revision L4-pelvis instrumented fusion Reason for Hospital Admission: spine sx Relevant Past Medical History: Migraines, HTN, DEANA, CVA 2013, L5/S1 transforaminal lumbar interbody fusion 08/16/21, spinal stimulator, dyslipedemia, urinary retention,Anxiety, Obesity, Urinary Retention, L4-L5 surgery, suresh shoulder surgery, Suresh knee surgery Response to Therapy Interventions: Needs frequent redirection or re-instruction Continue skilled needs due to: Functional mobility/skill impairments, Safety concerns Physical Therapy Problem List: Education Deficit;Safety Deficits;Decreased Activity Tolerance;Decreased Strength;Functional Mobility Impairment;Balance Impaired Treatment Interventions: Education;Energy Conservation Training;Joint Mobility;Strengthening;F unctional Mobility Training;Balance Training;Neuromuscular Re-education Plan for next visit: Gait training, Fall prevention, Chair transfer training, Standing Balance, Standing Tolerance, Walker Training Home Environment Patient Lives With: Self/Alone;Other: See Comment (sister, mom and friends help) Assistance Available: PRN Entry To Home: Stairs;With Rail Number Of Stairs Into Home: 5 Number Of Stairs To Bed/Bath: 1st floor set up Stairs to Bed/Bath with: Unilateral Rail Tub/Shower Type: tub shower Laundry: first floor Equipment Owned: Cane;Wheeled Walker;Wire Transfer Clerk;Grab Bars-Shower;ADL Kit;Elevated Toilet Seat;Shower Chair;Elastic Shoe Laces;Hospital Bed (PEr pt he does not have elevated toilet seat, sock aid etc.) Prior Functional Level: Required Assistance Assistance Required With: Cleaning;Laundry;Transpo rtation Prior Functional Level Comments: Patient vague and questionable historian. Has hospital bed but sleeping on sofa with his dog. Unclear using walker as per pt initially for 2 weeks he did not use walker. Per pt spends most of his time laying down. Microwaves meals. Online orders from [employer]. Per pt he puts on his socks without sockaid. Reaching down to floor to refil dog food. No falls in last 5 months. Was in SNF from September 17 -November 17 Patient Report: Agreeable to PT session. Per pt How did you get here?, Did I sit in the chair earlier?, How did you get in here?, Where are my care keys?. CURRENT FUNCTIONAL STATUS: Most recent performance Current Functional Mobility Assist Level Additional Information Rolling Stand By Assistance;Additional Information Needed reminders to follow right sequencing to proceed to sit as pt trying to sit up from back Supine to Sit Stand By Assistance Sit to Supine Additional Information up in the chair Scooting Stand By Assistance Sit to Stand Contact Guard Assistance impulsive, reminders on hand placement Stand to Sit Contact Guard Assistance Bed to Chair Contact Guard Assistance Bed To Chair Transfer Type: Stepping Bed To Chair Transfer Equipment: Wheeled Walker;Gait Belt Toilet/Commode Gait Contact Guard Assistance;Additional Information Gait Device: Wheeled Walker;With Wheelchair Follow Gait Distance (feet): 150 feet seems distracted, needs cues on safety and reminders on pacing of activities. Stairs Curb Step Car Transfer Blank paez i (more content not included)... [facility] THERAPY NT HNO ID: [id number] Author: Christine Recio OT/Ida Service: Occupational Therapy Author Type: Occupational Therapist Type: Therapy (PT/OT/Speech/Resp) Filed: 01/02/2022 2:12 PM Note Text: OCCUPATIONAL THERAPY MISSED VISIT SERVICE DATE: 01/02/2022 SERVICE TIME: 1411 to 1411 ROOM: [place] [address] Patient not seen due to Another service at bedside (PT). Will follow up as able. SIGNATURE: MYRTLE Lyn PATIENT NAME: Mary Jimenez DATE: January 02, 2022 TIME: 2:12 PM [facility] ALLIED HEALTHon 01-01-2022 ALLIED HEALTH HNO ID: [id number] Author: RT Ashu(Megan) Service: Radiology Author Type: Technologist Type: Allied Health Filed: 01/01/2022 3:04 PM Note Text: Radiology Service Progress Note PATIENT NAME: Mary Jimenez DATE OF SERVICE: January 01, 2022 TIME: 3:04 PM PATIENT IDENTITY VERIFICATION COMPLETED USING TWO (2) IDENTIFIERS: Name and Date of confirmed by patient verbally and Name and Date of confirmed by identification band. FALL SCREENING: Has the patient had 2 falls in the last year or 1 fall with injury or currently using an Ambulatory Assistive Device (Walker, Cane, Wheelchair, Crutches, etc.)? Inpatient: Screened on floor PATIENT GENDER DATA: Male PATIENT RELEVANT IMPLANT DATA REVIEWED: Not Applicable RADIOLOGY DEPARTMENT: General X-ray: Exam(s) Completed: Spine X-Ray(s): Lumbar AP / LAT PERIPHERAL IV DATA: Not applicable SIGNED BY: RT Ashu(R) January 01, 2022 3:04 PM [facility] Basic metabolic 2000 panelon 01-01-2022 Anion gap [Moles/Vol] 8 mmol/L Low 9-18 [facility] Comment on above: Order Comment: Speci men Type: BLOOD SPECIMENOrdering Facility: [facility] Address: [address] [place], [place] [address] Performed By: #### 2 4321-2 ####[facility] LABORATORYCLIA [id number] [address] [place], [place] [id number] [place] Calcium [Mass/Vol] 8.5 mg/dL Normal 8.5-10.2 [facility] Comment on above: Order Comment: Speci men Type: BLOOD SPECIMENOrdering Facility: [facility] Address: [address] [place], [place] [address] Performed By: #### 2 4321-2 ####[facility] DAY LABORATORYCLIA [id number] [place] [id number] [place] Chloride [Moles/Vol] 99 mmol/L Normal 97-105 [facility] Comment on above: Order Comment: Speci men Type: BLOOD SPECIMENOrdering Facility: [facility] Address: [address] [place] [address] Performed By: #### 2 4321-2 ####[facility] LABORATORYCLIA [id number] [place] [id number] [place] CO2 [Moles/Vol] 29 mmol/L Normal 22-30 [facility] Comment on above: Order Comment: Speci men Type: BLOOD SPECIMENOrdering Facility: [facility] Address: [address] [place], [place] [address] Performed By: #### 2 4321-2 ####[facility] LABORATORYCLIA [id number] [place] [id number] [place] Creatinine [Mass/Vol] 1.31 mg/dL High 0.73-1.22 [facility] Comment on above: Order Comment: Speci men Type: BLOOD SPECIMENOrdering Facility: [facility] Address: [address] [place], [place] [address] Performed By: #### 2 4321-2 ####[facility] LABORATORYCLIA [id number] [place] [address] [place] ESTIMATED GLOMERULAR FILTRATION RATE 62 mL/min/1.73m??? Normal >=60 [facility] Comment on above: Order Comment: Lovetamra conway Type: BLOOD SPECIMENOrdering Facility: [facility] Address: [address] [place] [address] Result Comment: Jane mated Glomerular Filtration Rate (eGFR) is calculated using the 2020 CKD-EPI creatinine equation. This equation utilizes serum creatinine, sex, and age as parameters. The creatinine assay has traceable calibration to isotope dilution-mass spectrometry. Refer to KDIGO guidelines for clinical interpretation. In patients with unstable renal function, e.g. those with acute kidney injury, the eGFR may not accurately reflect actual GFR. Performed By: #### 2 4321-2 ####[facility] LABORATORYCLIA [id number] [place] [address] [place] Glucose [Mass/Vol] 125 mg/dL High 74-99 [facility] Comment on above: Order Comment: Clarice conway Type: BLOOD SPECIMENOrdering Facility: [facility] Address: [address] [place] [address] Result Comment: The [place] [employer] (ADA) provides guidance for cutoff values for fasting glucose and random glucose. The ADA defines fasting as no caloric intake for at least 8 hours. Fasting plasma glucose results between 100 to 125 mg/dL indicate increased risk for diabetes (prediabetes). Fasting plasma glucose results greater than or equal to 126 mg/dL meet the criteria for diagnosis of diabetes. In the absence of unequivocal hyperglycemia, results should be confirmed by repeat testing. In a patient with classic symptoms of hyperglycemia or hyperglycemic crisis, random plasma glucose results greater than or equal to 200 mg/dL meet the criteria for diagnosis of diabetes. Reference: Standards of Medical Care in Diabetes 2016, [place] [employer] Association. Diabetes Care. 2016.39(Suppl 1). Performed By: #### 2 4321-2 ####[facility] LABORATORYCLIA [id number] [place] [address] [place] Potassium [Moles/Vol] 4.2 mmol/L Normal 3.7-5.1 [facility] Comment on above: Order Comment: Speci men Type: BLOOD SPECIMENOrdering Facility: [facility] Address: [address] [place] [address] Performed By: #### 2 4321-2 ####[facility] LABORATORYCLIA [id number] [address] [place] Sodium [Moles/Vol] 136 mmol/L Normal 136-144 [facility] Comment on above: Order Comment: Speci men Type: BLOOD SPECIMENOrdering Facility: [facility] Address: [address] [place] [address] Performed By: #### 2 4321-2 ####[facility] DAY LABORATORYCLIA [id number] [address] STATES [facility] Urea nitrogen [Mass/Vol] 11 mg/dL Normal 9-24 [facility] Comment on above: Order Comment: Speci men Type: BLOOD SPECIMENOrdering Facility: [facility] Address: [address] [place] [address] Performed By: #### 2 4321-2 ####[facility] DAY LABORATORYCLIA [id number] [address] CBC panel Auto (Bld)on 01-01 Erythrocyte distribution width (RBC) [Ratio] 16.5 % High 11.5-15.0 [facility] Comment on above: Order Comment: Speci men Type: BLOOD SPECIMENOrdering Facility: [facility] Address: [address] [place] [address] Performed By: #### T SCR30 #### [facility] [address] [place] [address] Hematocrit (Bld) [Volume fraction] 28.1 % Low 39.0-51.0 [facility] Comment on above: Order Comment: Speci men Type: BLOOD SPECIMENOrdering Facility: [facility] Address: [address] [place], [place] [address] Performed By: #### T SCR30 #### [place] [address] Hemoglobin (Bld) [Mass/Vol] 8.9 g/dL Low 13.0-17.0 [facility] Comment on above: Order Comment: Speci men Type: BLOOD SPECIMENOrdering Facility: [facility] Address: [address] [place] [address] Performed By: #### T SCR30 #### [place] [address] MCH (RBC) [Entitic mass] 28.1 pg Normal 26.0-34.0 [facility] Comment on above: Order Comment: Speci men Type: BLOOD SPECIMENOrdering Facility: [facility] Address: [address] [place] [address] Performed By: #### T SCR30 #### [place] [address] MCHC (RBC) [Mass/Vol] 31.7 g/dL Normal 30.5-36.0 [facility] Comment on above: Order Comment: Speci men Type: BLOOD SPECIMENOrdering Facility: [facility] Address: [address] [place] [address] Performed By: #### T SCR30 #### [place] [address] MCV (RBC) [Entitic vol] 88.6 fL Normal 80.0-100.0 [facility] Comment on above: Order Comment: Speci men Type: BLOOD SPECIMENOrdering Facility: [facility] Address: [address] [place] [address] Performed By: #### T SCR30 #### [place] [address] Nucleated RBC (Bld) [#/Vol] 10*3/uL Normal <0.01 [facility] Comment on above: Order Comment: Speci men Type: BLOOD SPECIMENOrdering Facility: [facility] Address: [address] Performed By: #### T SCR30 #### [place] [address] Platelet mean volume (Bld) [Entitic vol] 11.4 fL Normal 9.0-12.7 [facility] Comment on above: Order Comment: Speci men Type: BLOOD SPECIMENOrdering Facility: [facility] Address: [address] [place] [address] Performed By: #### T SCR30 #### [place] [address] Platelets (Bld) [#/Vol] 202 10*3/uL Normal 150-400 [facility] Comment on above: Order Comment: Speci men Type: BLOOD SPECIMENOrdering Facility: [facility] Address: [address] [place] [address] Performed By: #### T SCR30 #### [place] [address] RBC (Bld) [#/Vol] 3.17 10*6/uL Low 4.20-6.00 [facility] Comment on above: Order Comment: Speci men Type: BLOOD SPECIMENOrdering Facility: [facility] Address: [address] [place] [address] Performed By: #### T SCR30 #### [place] [address] WBC (Bld) [#/Vol] 8.29 10*3/uL Normal 3.70-11.00 [facility] Comment on above: Order Comment: Speci men Type: BLOOD SPECIMENOrdering Facility: [facility] Address: [address] [place] [address] Performed By: #### T SCR30 #### [place] [address] Erythrocyte distribution width (RBC) [Ratio] 16.7 % High 11.5-15.0 [facility] Comment on above: Order Comment: Speci men Type: BLOOD SPECIMENOrdering Facility: [facility] Address: [address] [place] [address] Performed By: #### T SCR30 #### [place] [address] Hematocrit (Bld) [Volume fraction] 29.6 % Low 39.0-51.0 [facility] Comment on above: Order Comment: Speci men Type: BLOOD SPECIMENOrdering Facility: [facility] Address: [address] [place] [address] Performed By: #### T SCR30 #### [place] [address] Hemoglobin (Bld) [Mass/Vol] 9.3 g/dL Low 13.0-17.0 [facility] Comment on above: Order Comment: Speci men Type: BLOOD SPECIMENOrdering Facility: [facility] Address: [address] [place] [address] Performed By: #### T SCR30 #### [place] [address] MCH (RBC) [Entitic mass] 27.8 pg Normal 26.0-34.0 [facility] Comment on above: Order Comment: Speci men Type: BLOOD SPECIMENOrdering Facility: [facility] Address: [address] [place] [address] Performed By: #### T SCR30 #### [place] [address] MCHC (RBC) [Mass/Vol] 31.4 g/dL Normal 30.5-36.0 [facility] Comment on above: Order Comment: Speci men Type: BLOOD SPECIMENOrdering Facility: [facility] Address: [address] [place] [address] Performed By: #### T SCR30 #### [place] [address] MCV (RBC) [Entitic vol] 88.4 fL Normal 80.0-100.0 [facility] Comment on above: Order Comment: Speci men Type: BLOOD SPECIMENOrdering Facility: [facility] Address: [address] [place], [place] [address] Performed By: #### T SCR30 #### [place] [address] Nucleated RBC (Bld) [#/Vol] 10*3/uL Normal <0.01 [facility] Comment on above: Order Comment: Speci men Type: BLOOD SPECIMENOrdering Facility: [facility] Address: [address] [place] [address] Performed By: #### T SCR30 #### [place] [address] Platelet mean volume (Bld) [Entitic vol] 10.6 fL Normal 9.0-12.7 [facility] Comment on above: Order Comment: Speci men Type: BLOOD SPECIMENOrdering Facility: [facility] Address: [address] [place] [address] Performed By: #### T SCR30 #### [place] [address] Platelets (Bld) [#/Vol] 206 10*3/uL Normal 150-400 [facility] Comment on above: Order Comment: Speci men Type: BLOOD SPECIMENOrdering Facility: [facility] Address: [address] [place] [address] Performed By: #### T SCR30 #### [place] [address] RBC (Bld) [#/Vol] 3.35 10*6/uL Low 4.20-6.00 [facility] Comment on above: Order Comment: Speci men Type: BLOOD SPECIMENOrdering Facility: [facility] Address: [address] [place] [address] Performed By: #### T SCR30 #### [place] [address] WBC (Bld) [#/Vol] 8.74 10*3/uL Normal 3.70-11.00 [facility] Comment on above: Order Comment: Speci men Type: BLOOD SPECIMENOrdering Facility: [facility] Address: [facility] [place] [address] Performed By: #### T SCR30 #### [place] [id number] [place] [id number] CONSULTon 01-01-2022 CONSULT HNO ID: [id number] Author: Kumar Mock MD Service: General Internal Medicine Author Type: Physician Type: Consults Filed: 01/01/2022 7:47 PM Note Text: CONSULT NOTE - INTERNAL MEDICINE PATIENT NAME: Mary Jimenez SERVICE DATE: 01/01/2022 SERVICE TIME: 7:42 PM ADMITTING PHYSICIAN: Loyda Steele MD CC: Post operative medical management; pt is s/p Revision L4-pelvis instrumented fusion HPI: His pain is controlled well with current treatment; he has been out of bed, tolerated activity well. He denies any postop nausea or vomiting. Postoperatively he has a indwelling Lira catheter. He denies any recent fever or chills, skin infections or any upper respiratory infections. Patient does not smoke. He admits to having 2 beers about 4 to 5 days in a week. PAST MEDICAL HISTORY Diagnosis Date - Anxiety - Dyslipidemia - Hypertension - Obesity 09/12/2021 - Obstructive sleep apnea - Stroke (HCC) - Urinary retention PAST SURGICAL HISTORY Procedure Laterality Date - PAST SURGICAL HISTORY OF 12/07/2014 L4-5 - PAST SURGICAL HISTORY OF Bilateral shoulder - PAST SURGICAL HISTORY OF Bilateral knees - REVISE MEDIAN N/CARPAL TUNNEL SURG Left Current Facility-Administered Medications Medication Dose Route Frequency - cyclobenzaprine 10 mg tab(s) (FLEXERIL) 10 mg ORAL TID PRN - COVID-19 vaccine (PF) 30 mcg injection (COMIRNATY, PFIZER) 30 mcg INTRAMUSCULAR ONCE (IMMUNIZATION) - polyethylene glycol 3350 17 g packet (MIRALAX, GLYCOLAX) 17 g ORAL DAILY - doxazosin 4 mg tab(s) (CARDURA) 4 mg ORAL AT BEDTIME - pregabalin 200 mg cap(s) (LYRICA) 200 mg ORAL TID - atorvastatin 80 mg tab(s) (LIPITOR) 80 mg ORAL AT BEDTIME - QUEtiapine 25 mg tab(s) (SEROquel) 25 mg ORAL BID PRN - finasteride 5 mg tab(s) (PROSCAR) 5 mg ORAL AT BEDTIME - metoprolol succinate ER 50 mg tab(s) (TOPROL XL) 50 mg ORAL DAILY - DULoxetine 30 mg cap(s) (CYMBALTA) 30 mg ORAL DAILY - baclofen 20 mg tab(s) (LIORESAL) 20 mg ORAL AT BEDTIME - doxepin 10 mg cap(s) (SINEquan) 10 mg ORAL AT BEDTIME - NaCl 0.9% iv flush bag 20 mL INTRAVENOUS PRN - sodium chloride 0.9 % (flush) 3-5 mL (BD POSIFLUSH) 3-5 mL INTRAVENOUS q 12 H - lactated ringers iv infusion 150 mL/hr INTRAVENOUS CONTINUOUS - vancomycin 1.5 g in D5W 250 mL (VANCOCIN) 1.5 g INTRAVENOUS q 24 HR - oxyCODONE-acetaminophen 5-325 mg 1-2 tablet (PERCOCET) 1-2 tablet ORAL q 6 H PRN - docusate sodium 100 mg cap(s) (COLACE) 100 mg ORAL BID - HYDROmorphone SHAPING MACHINE TENDER 0.5 mg/mL in NaCl 0.9% 100 mL INTRAVENOUS CONTINUOUS Social History Tobacco Use - Smoking status: Never Smoker - Smokeless tobacco: Never Used Substance Use Topics - Alcohol use: Yes Comment: 2 glasses of wine per day. - Drug use: Never Comment: denies tx for drug/alcohol abuse in the past. ALLERGIES Allergen Reactions - Penicillins Anaphylaxis - Latex Rash Family History Problem Relation Age of Onset - Diabetes Mother ROS: Patient denies any recent ENT or eye complaints, CP, palpitation, cough, wheeze, dizziness, dyspnea, abdominal pain, nausea, vomiting, urinary or bowel changes, rash or increased ankle swelling. Rest of the review of system is negative except as noted. OBJECTIVE PHYSICAL EXAM: Patient Vitals for the past 24 hrs: BP Temp Temp src Pulse Resp SpO2 01/01/22 1614 139/74 36.5 ?C (97.7 ?F) Oral 98 16 97 % 01/01/22 1235 133/74 37.4 ?C (99.3 ?F) Oral 101 18 96 % 01/01/22 1115 ? 16 ? 01/01/22 0809 137/76 36.4 ?C (97.5 ?F) Oral (!) 128 18 95 % 01/01/22 0458 101/55 36.8 ?C (98.2 ?F) Oral (!) 121 16 98 % 01/01/22 0009 ? ? ? 110 ? 95 % 01/01/22 0006 117/73 36.8 ?C (98.2 ?F) Oral 120 16 99 % 12/31/212057 107/88 36.6 ?C (97.9 ?F) Oral (!) 122 16 97 % Body mass index is 37.7 kg/m?. GENERAL: no distress. AANDOX3 SKIN: normal turgor HEENT: conjunctiva is pink, no icterus; m/m moist, no sinus tenderness NECK: no LN LUNGS: Lungs clear to auscultation, Fair air entry. CARDIAC: normal S1 and S2; no rubs or gallops ABDOMEN: Abdomen soft, non-tender. BS normal. EXTREMETIES: Bilateral normal ankle DF Problem List ACTIVE PROBLEM LIST Adjustment Disorder With Anxious Mood Intractable Chronic Migraine Without Aura Chronic Pain Syndrome Opioid Dependence ([facility]) Primary Hypertension Cerebrovascular Accident (Cva) Due to Thrombosis ([facility]) Spondylolisthesis, Lumbar Region Status Post Lumbar Spinal Fusion Mixed Hyperlipidemia Bph (Benign Prostatic Hyperplasia) Gerd (Gastroesophageal Reflux Disease) Ckd (Chronic Kidney Disease) Stage 3, Gfr 30-59 Ml/Min ([facility]) Post-Operative Infection Obesity Delirium Back Pain Low Back Pain Weakness of Left Lower Extremity Sleep Apnea Lumbar Pseudoarthrosis Obesity, Class II, Bmi 35-39.9 DATA: Diagnostic tests reviewed for today's visit: Most recent labs: CBC, Coags, BMP, Mg, Phos Recent Labs 01/01/22 0312 01/01/22 0121 WBC 8.29 8.74 HB 8.9* 9.3* HCT 28. (more content not included)... Normal [facility] NURSING PROGon 01-01-2022 NURSING PROG HNO ID: [id number] Author: Vivian Redd RN Service: ? Author Type: Advance Clinical Nurse Type: Nursing Progress Note Filed: 01/01/2022 5:04 PM Note Text: Nursing Progress Note Patient Name: Mary Jimenez Patient Location: [facility]/[id number] Daily Note: Reviewed isometrics and incentive spirometry which patient able to demonstrate. Reviewed DVT prophylaxis with early mobilization, compression hose, and compression pumps. Reviewed hospital poc and discharge plans. Reviewed the importance of good nutrition. patient aware of transition from the pain pump to oral pain medication tomorrow to discontinuing of lira. Patient states physical therapy is recommending possible rehab with patient. Plan is to continue tot mobilize, patient states understands they information given. This note was completed by: Vivian Redd [facility] THERAPY NTon 01-01-2022 THERAPY NT HNO ID: [id number] Author: Nadira Maravilla PT Service: Physical Therapy Author Type: Physical Therapist Type: Therapy (PT/OT/Speech/Resp) Filed: 01/01/2022 2:48 PM Note Text: Physical Therapy Evaluation SERVICE DATE: 01/01/2022 SERVICE TIME: 1300 to 1342 ROOM: [id number] Recommended Discharge Disposition: Acute Rehab Recommended Discharge Disposition Comments: Currently pt is HIGH Fall Risk 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;anticipate community discharge/previous community dweller;ongoing intervention of multiple therapy disciplines;decline in functional status requiring daily skilled care Anticipated Discharge Needs: Undetermined Physical Assist at Home for: Cleaning;Laundry;Meals;S tairs;Safety;Self Care;Shopping;Transporta tion Recommended Discharge Equipment: To Be Determined PT 6 Clicks Score: 16 Precautions/Activity Restrictions: Fall Risk;Spine;Impulsive with Activity Current Hospital Course: Revision L4-pelvis instrumented fusion Reason for Hospital Admission: spine sx Relevant Past Medical History: Migraines, HTN, DEANA, CVA 2013, L5/S1 transforaminal lumbar interbody fusion 08/16/21, spinal stimulator, dyslipedemia, urinary retention,Anxiety, Obesity, Urinary Retention, L4-L5 surgery, suresh shoulder surgery, Suresh knee surgery Response to Therapy Interventions: Needs frequent redirection or re-instruction Assessment Comments: Demonstrates impaired functional mobility, balance, strength and activity tolerance. Pt very impulsive, has poor insight to safety with mobility and abilities. C/o lt LE pain unable to tolerate sitting in chair for more than 2 mins. Performed transfers to chair, w/c etc. Will f/u as approp. Continue skilled needs due to: Functional mobility/skill impairments, Safety concerns Physical Therapy Problem List: Education Deficit;Safety Deficits;Decreased Activity Tolerance;Decreased Strength;Functional Mobility Impairment;Balance Impaired Treatment Interventions: Education;Energy Conservation Training;Joint Mobility;Strengthening;F unctional Mobility Training;Balance Training;Neuromuscular Re-education Plan for next visit: Gait training, Fall prevention, Chair transfer training, Standing Balance, Standing Tolerance, Walker Training Home Environment Patient Lives With: Self/Alone;Other: See Comment (sister, mom and friends help) Assistance Available: PRN Entry To Home: Stairs;With Rail Number Of Stairs Into Home: 5 Number Of Stairs To Bed/Bath: 1st floor set up Stairs to Bed/Bath with: Unilateral Rail Tub/Shower Type: tub shower Laundry: first floor Equipment Owned: Cane;Wheeled Walker;Wire Transfer Clerk;Grab Bars-Shower;ADL Kit;Elevated Toilet Seat;Shower Chair;Elastic Shoe Laces;Hospital Bed (PEr pt he does not have elevated toilet seat, sock aid etc.) Prior Functional Level: Required Assistance Assistance Required With: Cleaning;Laundry;Transpo rtation Prior Functional Level Comments: Patient vague and questionable historian. Has hospital bed but sleeping on sofa with his dog. Unclear using walker as per pt initially for 2 weeks he did not use walker. Per pt spends most of his time laying down. Microwaves meals. Online orders from [employer]. Per pt he puts on his socks without sockaid. Reaching down to floor to refil dog food. No falls in last 5 months. Was in SNF from September 17 -November 17 Patient Report: Agreeable to PT session. Per pt Can I walk . I dont want to go to facility because they dont let me get up OOB by myself . Per pt If I get tired I will just sit on the floor (laughing) . Per pt I don't think I can do anything without this button (pain pump) . CURRENT FUNCTIONAL STATUS: Most recent performance Current Functional Mobility Assist Level Additional Information Rolling Stand By Assistance Supine to Sit Contact Guard Assistance Sit to Supine Contact Guard Assistance;Additional Information Needs reminders on mobility Scooting Contact Guard Assistance Sit to Stand Minimal Assistance;Additional Information x2 ppl. Pt impulsive and needs max cues Stand to Sit Minimal Assistance Bed to Chair Minimal Assistance;Additional Information Bed To Chair Transfer Type: Stepping Bed To Chair Transfer Equipment: Wheeled Walker;Gait Belt Toilet/Commode Gait Additional Information;Moderate Assistance Gait Device: Wheeled Walker Gait Distance (feet): 20 feet Pacing of activities, poor insight to safety Stairs Curb Step Car Transfer Blank paez indicate activity not attempted Gait Deviations Left Lower Extremity: Heel strike during initial stance decreased General Deviations/Observations: Non-functional gait speed;Flexed trunk posture;Michaela decreased;Improper distancing from assistive device;UElvin flanagan (more content not included)... [facility] THERAPY NT HNO ID: [id number] Author: Christine Recio OT/L Service: Occupational Therapy Author Type: Occupational Therapist Type: Therapy (PT/OT/Speech/Resp) Filed: 01/01/2022 2:40 PM Note Text: Occupational Therapy Evaluation SERVICE DATE: 01/01/2022 SERVICE TIME: 1404 to 1429 ROOM: [place] [address] Recommended Discharge Disposition: Acute Rehab Recommended Discharge Disposition Due to: Patient requires an active, intensive rehabilitation therapy program due to:;decline in functional status requiring daily skilled care;ongoing intervention of multiple therapy disciplines Anticipated Discharge Needs: Undetermined OT 6 Clicks Score: 17 Precautions/Activity Restrictions: Fall Risk;Spine;Impulsive with Activity Current Hospital Course: Revision L4-pelvis instrumented fusion Reason for Hospital Admission: spine sx Relevant Past Medical History: Migraines, HTN, DEANA, CVA 2013, L5/S1 transforaminal lumbar interbody fusion 08/16/21, spinal stimulator, dyslipedemia, urinary retention,Anxiety, Obesity, Urinary Retention, L4-L5 surgery, suresh shoulder surgery, Suresh knee surgery Response to Therapy Interventions: Good participation in activities, On-track to achieve discharge goals, Requires additional time to complete activities, Pain, Needs frequent redirection or re-instruction, Multiple ongoing medical issues Continue skilled needs due to: Safety concerns, Continued monitoring of vital signs during mobility required, Functional impairment Occupational Therapy Problem List: Education Deficit;Impaired Self Care;Decreased Activity Tolerance;Safety Deficits;Functional Mobility Impairment Cognition/Communication Deficits Orientation Deficits: Other: See Comment (AANDO x 3) Responsiveness: Alert Follows Commands: 1-step Commands Attention Deficits: Distractible Memory Deficits: Short Term Executive Function Deficits: Safety Awareness, Insight to Deficits, Problem Solving Insight to Deficits: Minimal impairment Problem Solving Deficit: Minimal impairment Safety Awareness Deficit: Minimal impairment Cognitive Clinical Tests and Screens: Short Blessed Test 1. What Year Is It Now?: Correct 2. What Month Is It Now?: Correct 3. What Time is it? (WIthin 1 hour): Incorrect 4. Count Aloud Backwards 20 to 1 (Errors): 0 5. Months of the Year in Reverse Order (Errors): 0 6. Memory Phrase (Errors) : 3 Short Blessed Final Score: 9 Treatment Interventions: Education;Self Care / Home Management;Energy Conservation Training;Functional Mobility Training Home Environment Patient Lives With: Self/Alone;Other: See Comment (sister, mom and friends help) Assistance Available: PRN Entry To Home: Stairs;With Rail Number Of Stairs Into Home: 5 Number Of Stairs To Bed/Bath: 1st floor set up Stairs to Bed/Bath with: Unilateral Rail Tub/Shower Type: tub shower Laundry: first floor Equipment Owned: Cane;Wheeled Walker;Wire Transfer Clerk;Grab Bars-Shower;ADL Kit;Elevated Toilet Seat;Shower Chair;Elastic Shoe Laces;Hospital Bed (PEr pt he does not have elevated toilet seat, sock aid etc.) Prior Functional Level: Required Assistance Assistance Required With: Cleaning;Laundry;Transpo rtation Prior Functional Level Comments: Patient vague and questionable historian. Has hospital bed but sleeping on sofa with his dog. Unclear using walker as per pt initially for 2 weeks he did not use walker. Per pt spends most of his time laying down. Microwaves meals. Online orders from [employer]. Per pt he puts on his socks without sockaid. Reaching down to floor to refil dog food. No falls in last 5 months. Was in SNF from September 17 -November 17 Patient Report: Patient agreeable to OT CURRENT FUNCTIONAL STATUS: Most recent performance Current Activities of Daily Living Assist Level Additional Information Feeding Set Up Grooming Set Up Bathing Upper Body Set Up Bathing Lower Body Total Assistance Dressing Upper Body Set Up Dressing Lower Body Total Assistance Toileting Maximal Assistance Instrumental Activities of Daily Living Assist Level Additional Information Meal/Beverage Prep Cleaning Laundry Medication Management with Strategies Functional Mobility Assist Level Additional Information Rolling Supine to Sit Moderate Assistance Sit to Supine Stand By Assistance Scooting Sit to Stand Stand to Sit Bed to Chair Toilet/Commode Shower Functional Mobility Blank paez indicate activity not attempted Learning/Educational Needs: Discharge Plan;Equipment;Family Education/Training;Funct ional Activities/Mobility;Plan of Care;Precautions;Rehabil itation Techniques and Procedures;Safety;Self Care Goals for Plan of Care: Patient /Caregiver Goals: Go Home Goals: Patient will demonstrate progress with self-care, cognitive and/or coping needs identified to allow safe discharge to home with available support and/or physical assistance. Progress Toward Goals: Progressing as expected Rehab Potential: Good (more content not included)... Normal [facility] VDUVLSon 01-01-2022 VDUVLS Non-Invasive Vascula r Laboratory [facility] Lower Extremity Venous Duplex Bilateral/Complete Date of service/time: 01/01/2022 9:53:16 AM Name: MR. MARY JIMENEZ Date of : 1960 Age: 61 years Gender: M Medical History Prior deep vein thrombosis: No Prior superficial thrombophlebitis: No Clinical Indication Lower extremity pain. TECHNIQUE -------- A venous duplex ultrasound examination was performed, including grayscale imaging with compression maneuvers and color Doppler and spectral Doppler examination with augmentation maneuvers and response to respiration of the below mentioned veins. FINDINGS -------- RIGHT SIDE Distal external iliac vein Doppler: normal flow. Compression: normal. Common femoral vein Doppler: normal flow. Compression: normal. Femoral vein Doppler: normal flow. Compression: normal. Popliteal vein Doppler: normal flow. Compression: normal. Posterior tibial veins Compression: normal. Peroneal veins Compression: normal. Great saphenous vein Compression: normal. Small saphenous vein Compression: normal. LEFT SIDE Distal external iliac vein Doppler: normal flow. Compression: normal. Common femoral vein Doppler: normal flow. Compression: normal. Femoral vein Doppler: normal flow. Compression: normal. Popliteal vein Doppler: normal flow. Compression: normal. Posterior tibial veins Compression: normal. Peroneal veins Compression: normal. Great saphenous vein Compression: normal. Small saphenous vein Compression: normal. IMPRESSION RIGHT SIDE - DEEP VEINS Negative for acute deep vein thrombosis. RIGHT SIDE - SUPERFICIAL VEINS Negative for superficial thrombophlebitis in the great saphenous vein and small saphenous vein. LEFT SIDE - DEEP VEINS Negative for acute deep vein thrombosis. LEFT SIDE - SUPERFICIAL VEINS Negative for superficial thrombophlebitis in the great saphenous vein and small saphenous vein. Technologist: Gregorio Jay RVT, RDCS Ordering physician: CHRISTINE HATFIELD Interpreting physician: CHANEL Ford MD Final CC [employer] Image : [id number] See Link below for Image Normal [facility] XR LUMBAR 2V AP/LATon 2021 XR LUMBAR 2V AP/LAT * * *Final Report* * * DATE OF EXAM: Jan 01 2022 3:03PM LUX 5229 - XR LUMBAR 2V AP/LAT / PROCEDURE REASON: Post-operative / post-procedure assessment, asymptomatic * * * * Physician Interpretation * * * * Lumbar spine radiographs HISTORY: 61 years old Clinical information: Post-operative / post-procedure assessment, asymptomatic post op lumbar sx TECHNIQUE: Images: XR LUMBAR 2V AP/LAT Comparison: 11/24/2021. RESULT: Findings: Pedicle screws and associated posterior fixation rods extending from the L4 level to the sacrum. Combined anterior fixation and interbody graft the L4-5 level and interbody cage at the L5-S1 level. Surgical hardware appears to be intact. Endplate osteophyte formation multiple levels in the lumbar spine. No acute fracture. Left-sided convex curvature of the lumbar spine. SI joints appear to be intact. Osteophyte formation on the left superior acetabulum. Paraspinous soft tissues are unremarkable in appearance. IMPRESSION: Postsurgical change. No complication. Senior Informatica Developer: PSCAgustín Transcribe Date/Time: Jan 01 2022 3:32P Dictated by : DIONTE MANNING MD This examination was interpreted and the report reviewed and electronically signed by: DIONTE MANNING MD on Jan 01 2022 3:33PM EST [id number] [facility] ANES POSTPROC EVALon 022 ANES POSTPROC EVAL HNO ID: [id number] Author: David Og MD Service: Anesthesiology Author Type: Anesthesiologist Type: Anesthesia Postprocedure Evaluation Filed: 12/31/2021 4:56 PM Note Text: POST ANESTHESIA EVALUATION NOTE : 1960 Procedure Summary Date: 12/31/21 Room / Location: OR08 / DENY OR Anesthesia Start: 1105 Anesthesia Stop: 1514 Procedures: ARTHDSIS POST/POSTEROLATERAL TECH W/POST INTERBODY TECH ISSA AND/OR DISCECT SUFF TO PREP INTERSPACE SINGLE INTERSPACE AND SEG LUMBAR (N/A Spine Lumbar) DECOMPRESSION LAMINECTOMY INTERBODY FUSION LUMBAR POSTERIOR (PLIF) LEVEL 2 (N/A Spine Lumbar) POSTERIOR SEGMENTAL INSTRUMENTATION FOLLOWING LUMBAR FUSION 3-6 LEVELS (N/A Spine Lumbar) INSERTION INTERBODY BIOMED DEVICE(S) W/ANT INSTR ANCHORING TO DISC SPACE W/INTERBODY FUSION,EA INTERSPACE (N/A Spine Lumbar) Diagnosis: Spondylolisthesis of lumbar region (Spondylolisthesis of lumbar region [M43.16]) Surgeons: Loyda Steele MD Responsible Provider: David Og MD Anesthesia Type: general ASA Status: 3 Anesthesia Type: general Airway Type: ETT Last Vitals Vitals Value Taken Time BP 125/74 12/31/21 1645 Temp 36.1 ?C (97 ?F) 12/31/21 1515 Pulse 110 12/31/21 1655 Resp 16 12/31/21 1645 SpO2 97 % 12/31/21 1655 Vitals shown include unvalidated device data. Post Anesthesia Patient Status Patient Evaluation: PACU. PACU/ICU Patient Condition: stable. Anticipated Disposition: inpatient floor planned admission. Neurological Status: aware and responsive. Pulmonary Status: breathing comfortably on room air Airway Control: returned to baseline unsupported. Cardiovascular Status: stable. Pain Management: clinically adequate - multimodal analgesia pain management approach Postoperative Hydration: acceptable. Intraoperative Events: no significant anesthesia events Post Operative Nausea/Vomiting Status: no significant post operative nausea or vomiting Anesthetic Observations: Recommendation: continue current plan of care. Anesthesia Observations No Documentation SIGNATURE: David Og MD PATIENT NAME: Mary Jimenez DATE: December 31, 2021 TIME: 4:56 PM CSN: [id number] [facility] ANES PRE-OPon 12-31-2021 ANES PRE-OP HNO ID: [id number] Author: David Og MD Service: Anesthesiology Author Type: Anesthesiologist Type: Anesthesia Preprocedure Evaluation Filed: 12/31/2021 9:34 AM Note Text: ANESTHESIOLOGY DAY OF SURGERY NOTE : 1960 Procedure Information Date/Time: 12/31/21 0955 Procedures: ARTHDSIS POST/POSTEROLATERAL TECH W/POST INTERBODY TECH ISSA AND/OR DISCECT SUFF TO PREP INTERSPACE SINGLE INTERSPACE AND SEG LUMBAR (N/A Spine Lumbar) DECOMPRESSION LAMINECTOMY INTERBODY FUSION LUMBAR POSTERIOR (PLIF) LEVEL 2 (N/A Spine Lumbar) POSTERIOR SEGMENTAL INSTRUMENTATION FOLLOWING CERVICAL FUSION 3-6 LEVELS (N/A Spine Lumbar) INSERTION INTERBODY BIOMED DEVICE(S) W/ANT INSTR ANCHORING TO DISC SPACE W/INTERBODY FUSION,EA INTERSPACE (N/A Spine Lumbar) - Revision L4-pelvis Instrumented Fusion Location: DENY OR08 / DENY OR Surgeons: Loyda Steele MD Estimated body mass index is 37.7 kg/m? as calculated from the following: Height as of 12/17/21: 176.5 cm (5' 9.5 ). Weight as of 12/17/21: 117.5 kg (259 lb). 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 Tracheostomy tube not present Mallampati: III. TM distance: >3 FB. Neck ROM: full. Mouth opening: adequate. Short neck: no. Thick neck: yes DENTAL Normal dental observations. Dental findings: teeth intact. Additional exam findings: yes. CARDIOVASCULAR Normal cardiovascular observations. Rhythm: regular Rate: normal PULMONARY Normal pulmonary observations. Breath sounds clear to auscultation. II - ANESTHESIA PLAN ASA Score: 3 Anesthetic Plan: general Airway type: ETT The patient is not a current smoker. NPO Status: adequate Monitoring plan: Standard ASA. Postoperative analgesic plan: multimodal analgesia. Informed Consent Anesthetic risks, benefits, alternatives, personnel and consent discussed: yes. Patient / Responsible Republican agrees to proceed: yes Patient / Surrogate agrees to blood products: Yes Significant changes in the patient condition since the History and Physical, not otherwise documented in primary service progress note: no. Potential Anesthesia issues that may suggest increased risk of complications or contraindication to planned procedure: potential difficult intubation. Vitals Value Taken Time BP 150/86 12/31/21817 Pulse 82 12/31/21817 Resp 16 12/31/21817 Temp 36.9 ?C (98.4 ?F) 12/31/21817 SpO2 97 % 12/31/21817 Facility-Administered Medications as of 12/31/2021 Medication Dose Route Frequency - lactated ringers iv infusion 75 mL/hr INTRAVENOUS CONTINUOUS - vancomycin 1.5 g in D5W 250 mL (VANCOCIN) 1.5 g INTRAVENOUS ONCE - [COMPLETED] acetaminophen 1,000 mg tab(s) (TYLENOL) 1,000 mg ORAL Pre-Op Once - [COMPLETED] promethazine 12.5 mg tab(s) (PHENERGAN) 12.5 mg ORAL Pre-Op Once - lactated ringers iv infusion 30 mL/hr INTRAVENOUS CONTINUOUS Outpatient Medications as of 12/31/2021 Medication Sig - mupirocin (BACTROBAN) 2 % ointment Apply 1/2 Bactroban ointment with a cotton swab to each nostril in the morning and at bedtime starting 5 days prior to surgery. - Pregabalin (LYRICA) 200 mg capsule Take 1 capsule by mouth three times daily for 90 days. - QUEtiapine (SEROQUEL) 25 mg tablet Take 1 tablet by mouth twice daily as needed (Delirium) for up to 5 days. - docusate sodium (COLACE) 100 mg capsule Take 1 capsule by mouth twice daily. - docosahexaenoic acid/epa (FISH OIL ORAL) Take 5 capsules by mouth once daily. - fremanezumab-vfrm (AJOVY SYRINGE SUBCUTANEOUS) Inject 250 mg/mL subcutaneously. every 28 days for migraines - CHROMIUM PICOLINATE ORAL Take 800 mcg by mouth once daily. - MAGNESIUM ORAL Take 400 mg by mouth once daily. - finasteride (PROSCAR) 5 mg tablet Take 5 mg by mouth daily at bedtime. - CALCIUM CARBONATE/VITAMIN D3 (CALCIUM 600 + D ORAL) Take 1 tablet by mouth once daily. - LACTOBACILLUS ACIDOPHILUS (PROBIOTIC ACIDOPHILUS ORAL) Take 1 capsule by mouth once daily. - doxepin capsule 10 mg Take 10 mg by mouth daily at bedtime. Takes 2 tabs at bedtime - dicyclomine (BENTYL) 10 mg capsule Take 20 mg by mouth as needed. 4 times daily as needed - eletriptan (RELPAX) 40 mg tablet Take 40 mg by mouth as needed. may repeat in 2 hours if necessary - atorvastatin (LIPITOR) 80 mg tablet Take 80 mg by mouth daily at bedtime. - DULoxetine (CYMBALTA) 30 mg capsule Take 1 capsule by mouth once daily. Take with 60 mg for 90 mg total d (more content not included)... [facility] BRIEF OP NOTon 12-31-2021 BRIEF OP NOT HNO ID: [id number] Author: Loyda Steele MD Service: Neurosurgery Author Type: Physician Type: Brief Op Note Filed: 01/02/2022 8:11 AM Note Text: BRIEF OPERATIVE / PROCEDURE NOTE LOG ID: [id number] SURGERY/PROCEDURE DATE: 12/31/2021 INCISION/PROCEDURE START TIME: 11:35 AM INCISION CLOSE/PROCEDURE END TIME: 2:55 PM SURGEON(S)/PROCEDURALIST (S) AND CIGARETTE MAKING MACHINE CATCHER(S): Surgeon(s) and Role: * Loyda Steele MD - Primary * Monique Horta MD - Resident - Assisting * Gianluca Aguero MD - Fellow No Additional Staff SURGERY/PROCEDURE(S): Revision L4-pelvis instrumented fusion ANESTHESIA: General FINDINGS: Appropriate decompression and hardware placement ESTIMATED BLOOD LOSS: 1000 mls SPECIMENS: None COMPLICATIONS: None DRAINS: Subfascial drain PRE-OP/PRE-PROCEDURE DIAGNOSIS: L5/S1 pseudoarthrosis POST-OP/POST-PROCEDURE DIAGNOSIS: L5/S1 pseudoarthrosis SIGNATURE: Loyda Steele MD PATIENT NAME: Mary Jimenez DATE: December 31, 2021 TIME: 2:45 PM [facility] NURSING PROGon 12-31-2021 NURSING PROG HNO ID: [id number] Author: Shelly Devries RN Service: Nursing Author Type: Registered Nurse Type: Nursing Progress Note Filed: 12/31/2021 6:54 PM Note Text: Nursing Progress Note Patient Name: Mary Jimenez Patient Location: [address]/[place] [address] Transfer Note: Patient transferred into room/unit 518-1 in stable condition. Actions taken: Patient and family oriented to 5D unit policies and procedures. Educated on falls risks, falls precautions, and use of call crouch prior to getting OOB. Patient resting in bed. Call light within reach. All needs met at this time. This note was completed by: Shelly Devries [facility] NURSING PROG HNO ID: [id number] Author: Caroline Cameron RN Service: Nursing Author Type: Registered Nurse Type: Nursing Progress Note Filed: 12/31/2021 9:00 AM Note Text: Nursing Progress Note Patient Name: Mary Jimenez [facility] Daily Note:family wishes to speak to dr steele prior to surgery. Dr. Steele notified via text. This note was completed by: Caroline Cameron [facility] OPERATIVE NOon 12-31-2021 OPERATIVE NO HNO ID: [id number] Author: Loyda Steele MD Service: Neurosurgery Author Type: Physician Type: Operative Report Filed: 01/02/2022 8:23 AM Note Text: OPERATIVE/PROCEDURE REPORT LOG ID: [id number] SURGERY/PROCEDURE DATE: 12/31/2021 INCISION/PROCEDURE START TIME: 11:35 AM INCISION CLOSE/PROCEDURE END TIME: 2:55 PM SURGEON(S)/PROCEDURALIST (S) AND CIGARETTE MAKING MACHINE CATCHER(S): Surgeon(s) and Role: * Loyda Steele MD - Primary * Monique Horta MD - Resident - Assisting * Gianluca Aguero MD - Fellow No Additional Staff SURGERY/PROCEDURE(S): Revision L4-pelvis instrumented fusion ANESTHESIA: General INDICATION: 61 yo M who presented to the clinic with symptoms of worsening low back pain following Prior L5/S1 TLIF c/b wound infection. CT lumbar spine showed L5/S1 pseudoarthosis. Decision was made for revision L4-pelvis instrumented fusion SURGERY/PROCEDURE DETAILS: Patient was brought to the operating room. A huddle was performed with anesthesia team and nursing staff and surgical team all agreed to proceed. Patient was positioned prone on the [place] table. IV antibiotics were given. The area was prepped and draped in usual fashion. A midline lumbar incision was created using a #10 blade scalpel and carried down through the subcutaneous tissue. Monopolar cautery was utilized for hemostasis and then to divide along the midline down to the spinous processes. The fascia was opened and of the L3-sacrum level was dissected free in the subperiosteal plane. Dissection was carried out laterally over the transverse process and sacral ala. Prior hardware was identified. The S1 screws were removed bilaterally. O-arm was brought into the room and navigation was registered. S2 screws were placed using navigation assistance. Size screws were 8.5x100. Then attention was made for bone decortication for an arthrodesis between the L5 and S1. The transverse processes at a level decorticated at L5-S1. Combination of allograft and BMP was placed to achieve arthrodesis to be in L5 and S1. S1 screws were then inserted and was upsized to 8.5x55 on the left side and 9.5x50 on the right side. Lamonte was placed. Cath was placed. Incision was irrigated and hemostasis was achieved. Drain was placed. Incision was closed in 3 layers. 1 Vicryl for fascia, 2-0 Vicryl for subcutaneous layer, parag for skin. Dressing was applied. Patient was gently emerged from anesthesia and was transferred to PACU in stable condition. PRE-OP/PRE-PROCEDURE DIAGNOSIS: L5/S1 psuedoarthrosis POST-OP/POST-PROCEDURE DIAGNOSIS: L5/S1 pseudoarthrosis ESTIMATED BLOOD LOSS: 1000 mls SPECIMENS: ID Type Source Tests Collected by Time A : hardware removed from spine Hardware HARDWARE SURGICAL PATHOLOGY Loyda Steele MD 12/31/2021 2:35 PM IMPLANTABLE DEVICES: Implant Name Type Inv. Item Serial No. Cordwainer Lot No. LRB No. Used Action GRAFT BONE SUB 5CC DBM INERT REVERSE PHASE CARRIER GEL SYNTHETIC OSTEOSPARX - [id number] Bone GRAFT BONE SUB 5CC DBM INERT REVERSE PHASE CARRIER GEL SYNTHETIC OSTEOSPARX [id number] [employer] [id number] N/A 1 Implanted SUBSTITUTE MASTERGRAFT BONE GRAFT MATRIX BLOCK EXTENSION VOID FILLER 5ML - [id number] Graft SUBSTITUTE MASTERGRAFT BONE GRAFT MATRIX BLOCK EXTENSION VOID FILLER 5ML [employer] SOFAMOR DANEK [id number] N/A 1 Implanted GRAFT INFUSE 14MM SMALL BOVINE COLLAGEN RHBMP-2 23MM BONE ABSORBABLE SPONGE - [id number] Bone GRAFT INFUSE 14MM SMALL BOVINE COLLAGEN RHBMP-2 23MM BONE ABSORBABLE SPONGE [employer] SOFAMOR DANEK [id number] N/A 1 Implanted DRAINS: Subfascial drain COMPLICATIONS: None PARTICIPATION IN SURGERY/PROCEDURE: Gianluca Richter and Monique Horta performed the opening, decompression, hardware placement and closure together. SIGNATURE: Loyda Steele MD PATIENT NAME: Mary Jimenez DATE: December 31, 2021 TIME: 2:34 PM [facility] SURGICAL PATHOLOGYon 022 CASE REPORT [facility] Comment on above: Order Comment: Speci men Type: DEVICE SPECIMENOrdering Facility: [facility] Address: [address] [place] [id number] Result Comment: Surg ica Pathology Report Case: [id number] Authorizing Provider: Loyda Steele MD Collected: 12/31/2021 02:35 PM Ordering Location: [facility] Received: 12/31/2021 07:43 PM Operating Room Pathologist: Amanda Coleman MD Specimen: HARDWARE, hardware removed from spine Performed By: #### S ####[facility] [id number] [address] FINAL DIAGNOSIS [facility] Comment on above: Order Comment: Speci men Type: DEVICE SPECIMENOrdering Facility: [facility] Address: [address] [place] [address] Result Comment: Mariana Pierce pine, hardware removal: - Surgical rods, screws and screw caps with no soft tissue present (gross examination only) POLINA/LINH 01/01/22 Performed By: #### S ####[facility] [id number] [address] FINAL PERFORMING LAB [facility] Comment on above: Order Comment: Speci men Type: DEVICE SPECIMENOrdering Facility: [facility] Address: [address] [place] [address] Result Comment: Diag nostic interpretation performed at [facility], [address] [place] [address] CLIA# [id number] Machine Rug Cleaner: Krishna Serrato M.D. Performed By: #### S ####[facility] [id number] [address] GROSS DESCRIPTION A. HARDWARE. [facility] Comment on above: Order Comment: Speci men Type: DEVICE SPECIMENOrdering Facility: [facility] Address: [address] [place] [address] Result Comment: Rece ived in formalin labeled hardware removed from spine are 2 curved rods measuring 4.9 and 7.2 cm in length, 2 screws with connector ends each measuring 6.8 cm in length, and 5 screw caps measuring 0.5 cm in length and 1.0 cm in diameter. No soft tissue is present. No sections are submitted. The specimen was shown to Dr. Coleman. Gross examination performed at [facility], [facility], [place] [id number] [facility] 01/01/22 1:41 PM Performed By: #### S ####[facility] [id number] [facility] [id number] [id number] [facility] XR LUMBAR 2V AP/LATon 2021 XR LUMBAR 2V AP/LAT * * *Final Report* * * DATE OF EXAM: Dec 31 2021 2:19PM ELVER 5229 - XR LUMBAR 2V AP/LAT / PROCEDURE REASON: Spondylolisthesis of lumbar region * * * * Physician Interpretation * * * * X-ray lumbosacral spine, AP and lateral views Indication: Spondylolisthesis of lumbar region Comparison: None Counting reference: Lumbosacral junction. For the purposes of this report, L5S1 is considered the last lumbar type disc space and L4-5 is considered the level of the iliac crest. There are postoperative changes from posterior fusion of L4 through the sacrum with spinal rods and transpedicular screws. Interbody spacers are noted at L4-5 and L5-S1. There are screws traversing the sacroiliac joints. Hardware is intact. Retractors are visualized posteriorly from L3 through L5. No acute fracture. IMPRESSION: Postoperative changes as described above Senior Informatica Developer: [facility] Transcribe Date/Time: Dec 31 2021 2:25P Dictated by : ALISE RANDLE MD This examination was interpreted and the report reviewed and electronically signed by: ALISE RANDLE MD on Dec 31 2021 2:27PM EST [id number] [facility] SARS-CoV-2 RNA Resp Ql LATOYA+p robeon 12-29-2021 SARS-CoV-2 (COVID-19) RNA LATOYA+probe Ql (Resp) COVID 19 RESULT: SARS-CoV-2 (Agent of COVID-19) Not Detected by RT-PCR or equivalent method. This test was developed and its performance characteristics determined by [facility]'s Nahid Oviedo [facility]ology [facility] [place]. This test has been authorized by FDA under an Emergency Use Authorization (EUA). This test has been validated in accordance with the FDA's Guidance Document Policy for Diagnostics Testing in Laboratories Certified to Perform High Complexity Testing under CLIA prior to Emergency use Authorization for Coronavirus Disease 2019 during the Public Health Emergency issued on August 27, 2019. Test performed by [facility], Nahid Preet [facility] [place], [address] [place] [address]. Normal [facility] Comment on above: Performed By: #### 9 4500-6 ####[facility] LABCLIA [id number] [place] [address] [place] C reactive protein [Mass/vol ume] in Serum or PlasmaOrdered By: Yobany Nelson on 12-19-2021 CRP [Mass/Vol] 0.8 mg/dL 0.0-1.0 [facility] Basic metabolic 2000 panelon 12-17-2021 Anion gap [Moles/Vol] 14 mmol/L Normal 9-18 [facility] Comment on above: Order Comment: Speci men Type: BLOOD SPECIMENOrdering Facility: [facility] Address: [address] [place] [address] Performed By: #### 2 4321-2 ####[facility] LABCLIA [id number] [place] [address] [place] Calcium [Mass/Vol] 9.8 mg/dL Normal 8.5-10.2 [facility] Comment on above: Order Comment: Speci men Type: BLOOD SPECIMENOrdering Facility: [facility] Address: [address] [place] [address] Performed By: #### 2 4321-2 ####[facility] LABCLIA [id number] [place] [address] [place] Chloride [Moles/Vol] 100 mmol/L Normal 97-105 [facility] Comment on above: Order Comment: Speci men Type: BLOOD SPECIMENOrdering Facility: [facility] Address: [address] [place] [address] Performed By: #### 2 4321-2 ####[facility] LABCLIA [id number] [place] [address] [place] CO2 [Moles/Vol] 25 mmol/L Normal 22-30 [facility] Comment on above: Order Comment: Speci men Type: BLOOD SPECIMENOrdering Facility: [facility] Address: [address] [place] [address] Performed By: #### 2 4321-2 ####[facility] LABCLIA [id number] [place] [address] [place] Creatinine [Mass/Vol] 1.46 mg/dL High 0.73-1.22 [facility] Comment on above: Order Comment: Speci men Type: BLOOD SPECIMENOrdering Facility: [facility] Address: [address] [place] [address] Performed By: #### 2 4321-2 ####[facility] LABIA [id number] [address] OF [facility] ESTIMATED GLOMERULAR FILTRATION RATE 54 mL/min/1.73m??? Low >=60 [facility] Comment on above: Order Comment: Speci men Type: BLOOD SPECIMENOrdering Facility: [facility] Address: [address] [place] [address] Result Comment: Jane mated Glomerular Filtration Rate (eGFR) is calculated using the 2020 CKD-EPI creatinine equation. This equation utilizes serum creatinine, sex, and age as parameters. The creatinine assay has traceable calibration to isotope dilution-mass spectrometry. Refer to KDIGO guidelines for clinical interpretation. In patients with unstable renal function, e.g. those with acute kidney injury, the eGFR may not accurately reflect actual GFR. Performed By: #### 2 4321-2 ####[facility] LABCLIA [id number] [place] [address] [place] Glucose [Mass/Vol] 100 mg/dL High 74-99 [facility] Comment on above: Order Comment: Speci men Type: BLOOD SPECIMENOrdering Facility: [facility] Address: [address] [place] [address] Result Comment: The [place] Diabetes Association (ADA) provides guidance for cutoff values for fasting glucose and random glucose. The ADA defines fasting as no caloric intake for at least 8 hours. Fasting plasma glucose results between 100 to 125 mg/dL indicate increased risk for diabetes (prediabetes). Fasting plasma glucose results greater than or equal to 126 mg/dL meet the criteria for diagnosis of diabetes. In the absence of unequivocal hyperglycemia, results should be confirmed by repeat testing. In a patient with classic symptoms of hyperglycemia or hyperglycemic crisis, random plasma glucose results greater than or equal to 200 mg/dL meet the criteria for diagnosis of diabetes. Reference: Standards of Medical Care in Diabetes 2016, [place] [employer]. Diabetes Care. 2016.39(Suppl 1). Performed By: #### 2 4321-2 ####[facility] LABCLIA [id number] [place] [address] [place] Potassium [Moles/Vol] 4.9 mmol/L Normal 3.7-5.1 [facility] Comment on above: Order Comment: Speci men Type: BLOOD SPECIMENOrdering Facility: [facility] Address: [address] [place] [address] Performed By: #### 2 4321-2 ####[facility] LABCLIA [id number] [place] [address] [place] Sodium [Moles/Vol] 139 mmol/L Normal 136-144 [facility] Comment on above: Order Comment: Speci men Type: BLOOD SPECIMENOrdering Facility: [facility] Address: [address] [place] [address] Performed By: #### 2 4321-2 ####[facility] LABCLIA [id number] [place] [address] [place] Urea nitrogen [Mass/Vol] 23 mg/dL Normal 9-24 [facility] Comment on above: Order Comment: Speci men Type: BLOOD SPECIMENOrdering Facility: [facility] Address: [address] [place] [address] Performed By: #### 2 4321-2 ####[facility] LABCLIA [id number] [place] [address] [place] Anion gap [Moles/Vol] 14 mmol/L 9 - 18 mmol/L [facility] Calcium [Mass/Vol] 9.8 mg/dL 8.5 - 10. 2 mg/dL [facility] Chloride [Moles/Vol] 100 mmol/L 97 - 10 5 mmol/L [facility] CO2 [Moles/Vol] 25 mmol/L 22 - 30 mmol/L [facility] Creatinine [Mass/Vol] 1.46 mg/dL High 0.73 - 1.22 mg/dL [facility] Estimated Glomerular Filtration Rate 54 mL/min/1.73m Low >=60 mL/min/1.73 m [facility] Glucose [Mass/Vol] 100 mg/dL High 74 - 99 mg/dL [facility] Potassium [Moles/Vol] 4.9 mmol/L 3.7 - 5.1 mmol/L [facility] Sodium [Moles/Vol] 139 mmol/L 136 - 144 mmol/L [facility] Urea nitrogen [Mass/Vol] 23 mg/dL 9 - 24 mg/dL [facility] CBC W Auto Differential pane l (Bld)on 12-17-2021 Basophils (Bld) [#/Vol] 0.03 10*3/uL Normal <0.11 [facility] Comment on above: Order Comment: Speci men Type: BLOOD SPECIMENOrdering Facility: [facility] Address: [address] [place] [address] Performed By: #### 5 7021-8 ####[facility] LABCLIA [id number] [id number] [address] [place] Basophils/100 WBC (Bld) 0.5 % Normal [facility] Comment on above: Order Comment: Speci men Type: BLOOD SPECIMENOrdering Facility: [facility] Address: [address] [place] [address] Performed By: #### 5 7021-8 ####[facility] LABCLIA [id number] [place] [address] [place] Differential cell count method Nom (Bld) Auto Normal [facility] Comment on above: Order Comment: Speci men Type: BLOOD SPECIMENOrdering Facility: [facility] Address: [address] [place] [address] Performed By: #### 5 7021-8 ####[facility] LABCLIA [id number] [place] [address] [place] Eosinophils (Bld) [#/Vol] 0.21 10*3/uL Normal <0.46 [facility] Comment on above: Order Comment: Speci men Type: BLOOD SPECIMENOrdering Facility: [facility] Address: [address] [place] [address] Performed By: #### 5 7021-8 ####[facility] LABCLIA [id number] [place] [address] [place] Eosinophils/100 WBC (Bld) 3.3 % Normal [facility] Comment on above: Order Comment: Speci men Type: BLOOD SPECIMENOrdering Facility: [facility] Address: [address] [place] [address] Performed By: #### 5 7021-8 ####[facility] LABIA [id number] [place] [address] [place] Erythrocyte distribution width (RBC) [Ratio] 15.3 % High 11.5-15.0 [facility] Comment on above: Order Comment: Speci men Type: BLOOD SPECIMENOrdering Facility: [facility] Address: [address] [place] [address] Performed By: #### 5 7021-8 ####[facility] LABCLIA [id number] [place] [address] [place] Hematocrit (Bld) [Volume fraction] 40.1 % Normal 39.0-51.0 [facility] Comment on above: Order Comment: Speci men Type: BLOOD SPECIMENOrdering Facility: [facility] Address: [address] [place] [address] Performed By: #### 5 7021-8 ####[facility] LABIA [id number] [place] [address] [place] Hemoglobin (Bld) [Mass/Vol] 13.0 g/dL Normal 13.0-17.0 [facility] Comment on above: Order Comment: Speci men Type: BLOOD SPECIMENOrdering Facility: [facility] Address: [address] [place] [address] Performed By: #### 5 7021-8 ####[facility] LABIA [id number] [address] OF [facility] IMMATURE GRAN % 0.3 % Normal [facility] Comment on above: Order Comment: Speci men Type: BLOOD SPECIMENOrdering Facility: [facility] Address: [address] [place] [address] Performed By: #### 5 7021-8 ####[facility] LABCLIA [id number] [place] [address] [place] IMMATURE GRAN ABS <0.03 Normal <0.10 [facility] Comment on above: Order Comment: Speci men Type: BLOOD SPECIMENOrdering Facility: [facility] Address: [address] [place] [address] Performed By: #### 5 7021-8 ####[facility] LABCLIA [id number] [place] [address] [place] Lymphocytes (Bld) [#/Vol] 1.31 10*3/uL Normal 1.00-4.00 [facility] Comment on above: Order Comment: Speci men Type: BLOOD SPECIMENOrdering Facility: [facility] Address: [address] [place] [address] Performed By: #### 5 7021-8 ####[facility] [id number] [place] [address] [place] Lymphocytes/100 WBC (Bld) 20.8 % Normal [facility] Comment on above: Order Comment: Speci men Type: BLOOD SPECIMENOrdering Facility: [facility] Address: [address] [place] [address] Performed By: #### 5 7021-8 ####[facility] LABCLIA [id number] [place] [address] [place] MCH (RBC) [Entitic mass] 26.9 pg Normal 26.0-34.0 [facility] Comment on above: Order Comment: Speci men Type: BLOOD SPECIMENOrdering Facility: [facility] Address: [address] [place] [address] Performed By: #### 5 7021-8 ####[facility] LABIA [id number] [place] [address] [place] MCHC (RBC) [Mass/Vol] 32.4 g/dL Normal 30.5-36.0 [facility] Comment on above: Order Comment: Speci men Type: BLOOD SPECIMENOrdering Facility: [facility] Address: [address] [place] [address] Performed By: #### 5 7021-8 ####[facility] [id number] [place] [address] [place] MCV (RBC) [Entitic vol] 83.0 fL Normal 80.0-100.0 [facility] Comment on above: Order Comment: Speci men Type: BLOOD SPECIMENOrdering Facility: [facility] Address: [address] [place] [address] Performed By: #### 5 7021-8 ####[facility] LABCLIA [id number] [place] [address] [place] Monocytes (Bld) [#/Vol] 0.68 10*3/uL Normal <0.87 [facility] Comment on above: Order Comment: Speci men Type: BLOOD SPECIMENOrdering Facility: [facility] Address: [address] [place] [address] Performed By: #### 5 7021-8 ####[facility] LABCLIA [id number] [place] [address] [place] Monocytes/100 WBC (Bld) 10.8 % Normal [facility] Comment on above: Order Comment: Speci men Type: BLOOD SPECIMENOrdering Facility: [facility] Address: [address] [place] [address] Performed By: #### 5 7021-8 ####[facility] LABCLIA [id number] [place] [address] [place] Neutrophils (Bld) [#/Vol] 4.04 10*3/uL Normal 1.45-7.50 [facility] Comment on above: Order Comment: Speci men Type: BLOOD SPECIMENOrdering Facility: [facility] Address: [address] [place] [address] Performed By: #### 5 7021-8 ####[facility] LABCLIA [id number] [place] [address] [place] Neutrophils/100 WBC (Bld) 64.3 % Normal [facility] Comment on above: Order Comment: Speci men Type: BLOOD SPECIMENOrdering Facility: [facility] Address: [address] [place], [place] [address] Performed By: #### 5 7021-8 ####[facility] LABIA [id number] [place] [address] [place] Nucleated RBC (Bld) [#/Vol] 10*3/uL Normal <0.01 [facility] Comment on above: Order Comment: Speci men Type: BLOOD SPECIMENOrdering Facility: [facility] Address: [address] [place] [address] Performed By: #### 5 7021-8 ####[facility] LABIA [id number] [place] [address] [place] Nucleated RBC/100 WBC (Bld) [Ratio] 0.0 /100 WBC Normal [facility] Comment on above: Order Comment: Speci men Type: BLOOD SPECIMENOrdering Facility: [facility] Address: [address] [place] [address] Performed By: #### 5 7021-8 ####[facility] LABIA [id number] [place] [address] [place] Platelet mean volume (Bld) [Entitic vol] 11.0 fL Normal 9.0-12.7 [facility] Comment on above: Order Comment: Speci men Type: BLOOD SPECIMENOrdering Facility: [facility] Address: [address] [place], [place] [address] Performed By: #### 5 7021-8 ####[facility] LABIA [id number] [place] [address] [place] Platelets (Bld) [#/Vol] 181 10*3/uL Normal 150-400 [facility] Comment on above: Order Comment: Speci men Type: BLOOD SPECIMENOrdering Facility: [facility] Address: [address] [place], [place] [address] Performed By: #### 5 7021-8 ####[facility] LABCLIA [id number] [place] [address] [place] RBC (Bld) [#/Vol] 4.83 10*6/uL Normal 4.20-6.00 [facility] Comment on above: Order Comment: Speci men Type: BLOOD SPECIMENOrdering Facility: [facility] Address: [address] [place] [address] Performed By: #### 5 7021-8 ####[facility]CL[facility] [id number] [address] [place] WBC (Bld) [#/Vol] 6.29 10*3/uL Normal 3.70-11.00 [facility] Comment on above: Order Comment: Speci men Type: BLOOD SPECIMENOrdering Facility: [facility] Address: [address] [place] [address] Performed By: #### 5 7021-8 ####[facility] LABCLIA [id number] [place] [address] [place] Abs Immature Gran <0.03 <0.10 k/uL [facility] Basophils (Bld) [#/Vol] 0.03 10*3/uL <0.11 k/uL [facility] Basophils/100 WBC (Bld) 0.5 % [facility] Differential cell count method Nom (Bld) Auto [facility] Eosinophils (Bld) [#/Vol] 0.21 10*3/uL <0.46 k/uL [facility] Eosinophils/100 WBC (Bld) 3.3 % [facility] Erythrocyte distribution width (RBC) [Ratio] 15.3 % High 11.5 - 15.0 % [facility] Hematocrit (Bld) [Volume fraction] 40.1 % 39.0 - 51.0 % [facility] Hemoglobin (Bld) [Mass/Vol] 13.0 g/dL 13.0 - 17.0 g/dL [facility] Immature Gran % 0.3 % [facility] Lymphocytes (Bld) [#/Vol] 1.31 10*3/uL 1.00 - 4.00 k/uL [facility] Lymphocytes/100 WBC (Bld) 20.8 % [facility] MCH (RBC) [Entitic mass] 26.9 pg 26.0 - 34.0 pg [facility] MCHC (RBC) [Mass/Vol] 32.4 g/dL 30.5 - 36.0 g/dL [facility] MCV (RBC) [Entitic vol] 83.0 fL 80.0 - 100.0 fL [facility] Monocytes (Bld) [#/Vol] 0.68 10*3/uL <0.87 k/uL [facility] Monocytes/100 WBC (Bld) 10.8 % [facility] Neutrophils (Bld) [#/Vol] 4.04 10*3/uL 1.45 - 7.50 k/uL [facility] Neutrophils/100 WBC (Bld) 64.3 % [facility] Nucleated RBC (Bld) [#/Vol] 10*3/uL <0.01 k/uL [facility] Nucleated RBC/100 WBC (Bld) [Ratio] 0.0 /100 WBC [facility] Platelet mean volume (Bld) [Entitic vol] 11.0 fL 9.0 - 12.7 fL [facility] Platelets (Bld) [#/Vol] 181 10*3/uL 150 - 400 k/uL [facility] RBC (Bld) [#/Vol] 4.83 10*6/uL 4.20 - 6.0 0 m/uL [facility] WBC (Bld) [#/Vol] 6.29 10*3/uL 3.70 - 11.00 k/uL [facility] HISTORY PHYSICALon HISTORY PHYSICAL HNO ID: [id number] Author: Oliverio Loza APRN.SHEA Service: ? Author Type: Nurse Practitioner Type: HANDP Filed: 12/20/2021 7:08 AM Note Text: HISTORY AND PHYSICAL EXAMINATION SERVICE DATE: 12/17/2021 SERVICE TIME: 11:18 AM PRIMARY CARE PHYSICIAN: Jose Ray DO REASON FOR VISIT: Mary Jimenez is a 61 year old male who is scheduled for DECOMPRESSION LAMINECTOMY INTERBODY FUSION LUMBAR POSTERIOR (PLIF) LEVEL 2 at the request of Dr. Christine Gutierrez for consultation. My final recommendation will be communicated back to the requesting physician by way of shared medical record or letter. The patient has the following: ACTIVE PROBLEM LIST Adjustment Disorder With Anxious Mood Intractable Chronic Migraine Without Aura Chronic Pain Syndrome Opioid Dependence (Hcc) Primary Hypertension Cerebrovascular Accident (Cva) Due to Thrombosis (Hcc) Spondylolisthesis, Lumbar Region S/P Lumbar Fusion Mixed Hyperlipidemia Bph (Benign Prostatic Hyperplasia) Gerd (Gastroesophageal Reflux Disease) Ckd (Chronic Kidney Disease) Stage 3, Gfr 30-59 Ml/Min ([facility]) Post-Operative Infection Obesity Delirium Back Pain Low Back Pain Weakness of Left Lower Extremity Sleep Apnea Subjective CHIEF COMPLAINT: Pre-op exam HPI: This is a 61 year old male that is scheduled for the above procedure. Patient states that he had lower back surgery and his incision got infected. He was admitted to the hospital due to infection. Was treated with antibitoics and is finishing up oral antibiotics now. Denies any fever, chills, or drainage from the incision. He states that the incision is closed. He contacted his PCP and does not require a follow up from admission. He states his current pain is 8/10 and states intermittent numbness and tingling in bilateral feet. Patient states pain is improved when he lies flat. PAST MEDICAL HISTORY Diagnosis Date - Anxiety - Dyslipidemia - Hypertension - Obesity 09/12/2021 - Obstructive sleep apnea - Stroke (HCC) - Urinary retention PAST SURGICAL HISTORY Procedure Laterality Date - PAST SURGICAL HISTORY OF 12/07/2014 L4-5 - PAST SURGICAL HISTORY OF Bilateral shoulder - PAST SURGICAL HISTORY OF Bilateral knees - REVISE MEDIAN N/CARPAL TUNNEL SURG Left FAMILY HISTORY Problem Relation Age of Onset - Diabetes Mother SOCIAL HISTORY: Social History Tobacco Use - Smoking status: Never Smoker - Smokeless tobacco: Never Used Substance Use Topics - Alcohol use: Yes Comment: 2 glasses of wine per day. - Drug use: Never Comment: denies tx for drug/alcohol abuse in the past. MEDICATIONS: Prior to Admission medications as of 12/17/21 1132 Medication Sig Last Dose Taking clopidogrel (PLAVIX) 75 mg tablet Take 75 mg by mouth once daily. Yes HYDROcodone-Acetaminophe n (NORCO) 10-325 mg per tablet Take 1 tablet by mouth every 8 hours as needed for pain. Yes Pregabalin (LYRICA) 200 mg capsule Take 1 capsule by mouth three times daily for 90 days. Yes doxycycline hyclate (VIBRAMYCIN) 100 mg capsule Take 1 capsule by mouth twice daily for 28 days. Yes QUEtiapine (SEROQUEL) 25 mg tablet Take 1 tablet by mouth twice daily as needed (Delirium) for up to 5 days. Yes docosahexaenoic acid/epa (FISH OIL ORAL) Take 5 capsules by mouth once daily. Yes fremanezumab-vfrm (AJOVY SYRINGE SUBCUTANEOUS) Inject 250 mg/mL subcutaneously. every 28 days for migraines Yes CHROMIUM PICOLINATE ORAL Take 800 mcg by mouth once daily. Yes MAGNESIUM ORAL Take 400 mg by mouth once daily. Yes finasteride (PROSCAR) 5 mg tablet Take 5 mg by mouth daily at bedtime. Yes CALCIUM CARBONATE/VITAMIN D3 (CALCIUM 600 + D ORAL) Take 1 tablet by mouth once daily. Yes LACTOBACILLUS ACIDOPHILUS (PROBIOTIC ACIDOPHILUS ORAL) Take 1 capsule by mouth once daily. Yes doxepin capsule 10 mg Take 10 mg by mouth daily at bedtime. Takes 2 tabs at bedtime Yes dicyclomine (BENTYL) 10 mg capsule Take 20 mg by mouth as needed. 4 times daily as needed Yes eletriptan (RELPAX) 40 mg tablet Take 40 mg by mouth as needed. may repeat in 2 hours if necessary Yes atorvastatin (LIPITOR) 80 mg tablet Take 80 mg by mouth daily at bedtime. Yes DULoxetine (CYMBALTA) 30 mg capsule Take 1 capsule by mouth once daily. Take with 60 mg for 90 mg total dose. Patient taking differently: Take 30 mg by mouth three times daily. Takes 30 mg three times daily per patient Yes baclofen (LIORESAL) 20 mg tablet Take 20 mg by mouth daily at bedtime. Yes KLOR-CON M20 20 mEq tablet Take 20 mEq by mouth once daily. Yes furosemide (LASIX) 40 mg tablet Take 40 mg by mouth once daily. Yes doxazosin (CARDURA) 4 mg tablet Take 4 mg by mouth once daily. Yes metoprolol succinate XL, long acting, (TOPROL XL) 50 mg 24 hr tablet Take 50 mg by mouth once daily. Yes cyanocobalamin (VITAMIN B-12) 1,000 mcg tab Take 1,000 mcg by mouth once daily. Yes fluticasone (FLONASE) 50 mcg/a (more content not included)... Normal [facility] TYPE AND SCREEN,30 DAYon ABO A Normal [facility] Comment on above: Order Comment: Speci men Type: BLOOD SPECIMENOrdering Facility: [facility] Address: [address] [place] [address] Performed By: #### T SCR30 ####[facility] BANKCLIA [id number] [address] [place] HISTORICAL AB SCR STATUS Negative Normal [facility] Comment on above: Order Comment: Speci men Type: BLOOD SPECIMENOrdering Facility: [facility] Address: [address] [place] [address] Performed By: #### T SCR30 ####[facility] BLOOD BANKCLIA [id number] [address] [place] Rh Nom (Bld) Positive Normal [facility] Comment on above: Order Comment: Speci men Type: BLOOD SPECIMENOrdering Facility: [facility] Address: [address] [place] [address] Performed By: #### T SCR30 ####[facility] BLOOD BANKCLIA [id number] [address] [place] C reactive protein [Mass/vol ume] in Serum or PlasmaOrdered By: Yobany Nelson on 12-12-2021 CRP [Mass/Vol] 0.6 mg/dL 0.0-1.0 [facility] C reactive protein [Mass/vol ume] in Serum or PlasmaOrdered By: Yobany Nelson on 12-05-2021 CRP [Mass/Vol] 1.1 mg/dL 0.0-1.0 [facility] CHEMISTRYOrdered By: SYSTEM SYSTEM on 11-20-2021 Amphetamines Screen method >1000 ng/mL Ql (U) Negative (11/20/21 7:42 PM) Normal Negative [facility] Remisol Barbiturates Screen Ql (U) Negative (11/20/21 7:42 PM) Normal Negative [facility] Remisol Benzodiazepines Ql (U) Negative (11/20/21 7:42 PM) Normal Negative [facility] Remisol Cocaine Ql (U) Negative (11/20/21 7:42 PM) Normal Negative [facility] Remisol Opiates Screen Ql (U) Positive 1 *ABN* (11/20/21 7:42 PM) Invalid Interpretation Code Negative [facility] Comment on above: Result Comment: Crit ical Result verified by repeat analysis\No confirmation requested by Physican\Unconfirmed by alternate method\Critical Result UD_OPIA:POS Called to YOLANDA MEDRANO AT by JATINDER BARAHONA And Read Back For Confirmation at: 11/20/2021 21:31:35 Phencyclidine Screen method >25 ng/mL Ql (U) Negative (11/20/21 7:42 PM) Normal Negative [facility] Tetrahydrocannabinol Screen method >50 ng/mL Ql (U) Negative (11/20/21 7:42 PM) Normal Negative [facility] Albumin [Mass/Vol] 3.9 g/dL Normal 3.3 - 5.0 gm/dL [facility] Albumin/Globulin [Mass ratio] 1.2 {ratio} Normal 1.1 - 2.2 [facility] ALP [Catalytic activity/Vol] 75 [iU]/d Normal 21 - 98 Int._Unit/L [facility] ALT No additional P-5'-P [Catalytic activity/Vol] 17 [iU]/d Normal 6 - 46 Int._Unit/L [facility] Anion gap [Moles/Vol] 10 mmol/L Normal 6 - 16 mEq/L [facility] AST [Catalytic activity/Vol] 17 [iU]/d Normal 5 - 43 Int._Unit/L [facility] Bilirubin [Mass/Vol] 0.8 mg/dL Normal 0.0 - 1 .1 mg/dL [facility] Bilirubin.direct [Mass/Vol] 0.2 mg/dL Normal 0.1 - 0.4 mg/dL [facility] Bilirubin.indirect [Mass or moles/Vol] 0.6 mg/dL Normal 0.1 - 0.9 mg/dL [facility] Calcium [Mass/Vol] 8.9 mg/dL Normal 8.9 - 11. 1 mg/dL [facility] Chloride [Moles/Vol] 98 mmol/L Low 101 - 1 11 mmol/L [facility] CO2 [Moles/Vol] 31 mmol/L Normal 21 - 31 mmol/L [facility] Creatinine [Mass/Vol] 1.7 mg/dL High 0.5 - 1.3 mg/dL [facility] CRP [Mass/Vol] 22.8 mg/dL High <=1.9mg/dL [facility] ol GFR/1.73 sq M.predicted among blacks MDRD (S/P/Bld) [Vol rate/Area] 50 mL/min/1.73 m2 Low >=59mL/min/ 1.73 m2 FT Chem S GFR/1.73 sq M.predicted among non-blacks MDRD (S/P/Bld) [Vol rate/Area] 41 mL/min/1.73 m2 Low >=59mL/min/ 1.73 m2 FT Chem S Globulin (S) [Mass/Vol] 3.4 g/dL Normal 1.4 - 4.0 gm/dL [facility] Glucose [Mass/Vol] 61 mg/dL Normal 55 - 199 mg/dL [facility] Lactate [Mass/Vol] 1.0 mmol/L Normal 0.5 - 2.2 mmol/L [facility] Lipase [Catalytic activity/Vol] 25 U/L Normal 13 - 58 unit/L [facility] Potassium [Moles/Vol] 3.7 mmol/L Normal 3.5 - 5.3 mmol/L [facility] Protein [Mass/Vol] 7.3 g/dL Normal 6.0 - 7.8 gm/dL [facility] Sodium [Moles/Vol] 135 mmol/L Normal 135 - 145 mmol/L [facility] Urea nitrogen [Mass/Vol] 17 mg/dL Normal 5 - 21 mg/dL [facility] Urea nitrogen/Creatinine [Mass ratio] 10 mg/mg Normal 10 - 20 [facility] COAGULATIONOrdered By: Jamie Branham on 11-20-2021 aPTT Coag (PPP) [Time] 45.1 s High 25.1 - 36.5 second(s) [facility] INR Coag (PPP) [Relative time] 1.2 {INR} Invalid Interpretation Code [facility] PT Coag (PPP) [Time] 14.2 s High 10.2 - 12.9 second(s) [facility] HEMATOLOGYOrdered By: SYSTEM SYSTEM on 11-20-2021 Basophils/100 WBC (Bld) 0.3 % Normal 0.0 - 2.0 % [facility] Basophils/Leukocytes Auto (Bld) [Pure # fraction] 0.0 E9/L Normal 0.0 - 0.2 E9/L [facility] Eosinophils/100 WBC (Bld) 0.5 % Normal 0.0 - 8.0 % [facility] Eosinophils/Leukocytes Auto (Bld) [Pure # fraction] 0.1 E9/L Normal 0.0 - 0.5 E9/L [facility] Lymphocytes/100 WBC (Bld) 7.2 % Low 14.0 - 50.0 % [facility] Lymphocytes/Leukocytes Auto (Bld) [Pure # fraction] 0.9 E9/L Low 1.0 - 4.0 E9/L [facility] Monocytes/100 WBC (Bld) 15.7 % High 4.0 - 14.0 % [facility] Monocytes/Leukocytes Auto (Bld) [Pure # fraction] 2.1 E9/L High 0.2 - 1.0 E9/L [facility] Neutrophils/100 WBC (Bld) 76.3 % High 36.0 - 75.0 % [facility] Neutrophils/Leukocytes Auto (Bld) [Pure # fraction] 10.0 E9/L High 2.0 - 7.5 E9/L [facility] HEMATOLOGYOrdered By: Huber Ellis on 11-20-2021 Erythrocyte distribution width (RBC) [Ratio] 16.1 % High 10.9 - 14.2 % [facility] Hematocrit (Bld) [Volume fraction] 37.8 % Normal 37.7 - 49.0 % [facility] Hemoglobin (Bld) [Mass/Vol] 12.4 g/dL Low 13.5 - 17.5 gm/dL [facility] MCH (RBC) [Entitic mass] 26.9 pg Low 27.0 - 34.0 pg [facility] MCHC (RBC) [Mass/Vol] 32.7 g/dL Normal 31.4 - 36.0 gm/dL [facility] MCV (RBC) [Entitic vol] 82.3 fL Normal 80.0 - 100.0 fL [facility] Platelet mean volume (Bld) [Entitic vol] 8.6 fL Normal 6.4 - 10.8 fL [facility] Platelets (Bld) [#/Vol] 219.0 E9/L Normal 150.0 - 500.0 E9/L [facility] RBC (Bld) [#/Vol] 4.6 E12/L Normal 4.3 - 5.9 E12/L [facility] Sed Rate Automated 25 mm/h High 0 - 19 mm/hr [facility] WBC corrected for nucl RBC Auto (Bld) [#/Vol] 13.1 E9/L High 4.0 - 11.0 E9/L [facility] MICRO OTHER TESTSOrdered By: Angelina Barahona on 11-20-2021 Rapid COV Int NEG Ctl Pass (11/20/21 10:51 PM) Normal [facility] [place] Man Sero Rapid COV Int POS Ctl Pass (11/20/21 10:51 PM) Normal [facility] [place] Man Sero SARS-CoV+SARS-CoV-2 (COVID-19) Ag IA.rapid Ql (Resp) Not Detected (11/20/21 10:51 PM) Normal Not Detected [facility] [place] Man Sero No Panel Informationon 11-20 Blood Culture Charcoal No growth at 1 da y. Final to follow at 7 days. [facility] Blood Culture Charcoal No growth at 1 da y. Final to follow at 7 days. [facility] URINALYSISOrdered By: Jamie evans on 11-20-2021 Bacteria LM Ql (Urine sed) Trace /HPF Normal Trace/HPF [facility] Bilirubin Ql (U) Negative (11/20/21 7:42 PM) Normal Negative [facility] Clarity (U) Clear (11/20/21 7:42 PM) Normal Clear [facility] Color (U) Yellow (11/20/21 7:42 PM) Normal Yellow [facility] Crystals LM Ql (Urine sed) Present (11/20/21 7:42 PM) Normal [facility] Epithelial cells.squamous LM.HPF (Urine sed) [#/Area] 0-2 /HPF Normal 0-2/HPF [facility] Aut o SS Glucose Test strip (U) [Mass/Vol] Negative (11/20/21 7:42 PM) Normal Negative [facility] Hemoglobin Ql (U) Negative (11/20/21 7:42 PM) Normal Negative [facility] Ketones (U) [Mass/Vol] Negative (11/20/21 7:42 PM) Normal Negative [facility] Auto SS [place].plasma/[place] .RBC (Bld) [Mass ratio] 0-3 /HPF Normal 0-3/HPF [facility] Nitrite Ql (U) Negative (11/20/21 7:42 PM) Normal Negative [facility] pH (U) 7.0 *NA* (11/20/21 7:42 PM) Invalid Interpretation Code 5.0 - 9.0 [facility] Protein (U) [Mass/Vol] Negative (11/20/21 7:42 PM) Normal Negative [facility] Specific gravity (U) [Rel density] <=1.005 *NA* (11/20/21 7:42 PM) Invalid Interpretation Code 1.005 - 1.030 [facility] UA Spec Desc Clean Catch (11/20/21 7:42 PM) Normal [facility] Urobilinogen Qn (U) 0.4206181 {Cristina'U}/dL Normal 0.0 - 1.0 EU/dL [facility] WBC Auto Ql (U) Negative (11/20/21 7:42 PM) Normal Negative [facility] SS WBC LM.HPF (Urine sed) [#/Area] 0-5 /HPF Normal 0-5/HPF [facility] SS Pamela 11-06-2021 SHEAN Telephone (NIQ) -------- MARY JIMENEZ ([id number]) 1960 M Date Time Provider Department 11/06/21 LOYDA STEELE During your visit today, we recorded the following information about you: Sandra Godoy Pss 11/06/2021 3:45 PM Signed Patient called stating he had surgery on Aug 16 and is currently in [facility] due to not being able to walk. He is about to lose his alf coverage and will soon be discharged. Patient will be going to pain management and states his Pain Management doctor (Dr Yanelis Ochoa at [facility]) needs clearance or a release (the patient wasn't clear on what was needed), so that he can get treatment from Dr Ochoa. For questions, call Dr Ochoa's office at [phone] Samantha Kirkland RN 11/07/2021 8:00 AM Signed referral placed for pain management Sandra Godoy Pss 12/03/2021 2:14 PM Signed Patient and his sister called today to let Dr Steele know that he went for his Pain Management Consult today, the Pain Management doctor told him he should not be in that much pain three months post surgery and he needs to find out why and get it resolved before he will treat him and prescribe anything. The patient has a virtual appointment set up with Dr Steele tomorrow at 4:40 PM and will discuss it then. He states he only has enough pain medication for tonight. Joanne Jim RN 12/03/2021 2:20 PM Signed Please advise on the below message Christine Gutierrez PA-C 12/03/2021 2:29 PM Signed Would recommend discussing further medication distribution with Dr. Steele as we are outside the acute post-operative timeline and beyond our scope of practice. Joanne Jim RN 12/03/2021 2:34 PM Signed Message forwarded to Dr. Steele for review. Joanne Jim RN 12/04/2021 1:32 PM Signed Patient has virtual appointment with Dr. steele today . Will close this encounter. Allergies As of Date: 11/06/2021 Noted Allergy Reaction PENICILLINS 06/07/2014 10 - Anaphylaxis LATEX 09/04/2016 2 - Rash Date Reviewed: 10/21/2021 Reviewed by: Noemí Harrell LPN - Fully Assessed Reason for Visit: Patient Question [2617] Primary Visit Diagnosis:Chronic bilateral low back pain without sciatica [M54.50, G89.29] Order(s):CONSULT TO PAIN MGT [19991004] Order #: [id number]: 1 FUTURE Prescriptions as of 12/04/2021 - doxycycline hyclate (VIBRAMYCIN) 100 mg capsule Take 1 capsule by mouth twice daily for 28 days. - QUEtiapine (SEROQUEL) 25 mg tablet Take 1 tablet by mouth twice daily as needed (Delirium) for up to 5 days. - pregabalin (LYRICA) 200 mg capsule Take 1 capsule by mouth twice daily for 30 days. - docusate sodium (COLACE) 100 mg capsule Take 1 capsule by mouth twice daily. - docosahexaenoic acid/epa (FISH OIL ORAL) Take 5 capsules by mouth once daily. - fremanezumab-vfrm (AJOVY SYRINGE SUBCUTANEOUS) Inject 250 mg/mL subcutaneously. every 28 days for migraines - CHROMIUM PICOLINATE ORAL Take 800 mcg by mouth once daily. - MAGNESIUM ORAL Take 400 mg by mouth once daily. - finasteride (PROSCAR) 5 mg tablet Take 5 mg by mouth daily at bedtime. - CALCIUM CARBONATE/VITAMIN D3 (CALCIUM 600 + D ORAL) Take 1 tablet by mouth once daily. - LACTOBACILLUS ACIDOPHILUS (PROBIOTIC ACIDOPHILUS ORAL) Take 1 capsule by mouth once daily. - doxepin capsule 10 mg Take 10 mg by mouth daily at bedtime. Takes 2 tabs at bedtime - dicyclomine (BENTYL) 10 mg capsule Take 20 mg by mouth as needed. 4 times daily as needed - eletriptan (RELPAX) 40 mg tablet Take 40 mg by mouth as needed. may repeat in 2 hours if necessary - atorvastatin (LIPITOR) 80 mg tablet Take 80 mg by mouth daily at bedtime. - DULoxetine (CYMBALTA) 30 mg capsule Take 1 capsule by mouth once daily. Take with 60 mg for 90 mg total dose. - baclofen (LIORESAL) 20 mg tablet Take 20 mg by mouth daily at bedtime. - KLOR-CON M20 20 mEq tablet Take 20 mEq by mouth once daily. - furosemide (LASIX) 40 mg tablet Take 40 mg by mouth once daily. - doxazosin (CARDURA) 4 mg tablet Take 4 mg by mouth once daily. - metoprolol succinate XL, long acting, (TOPROL XL) 50 mg 24 hr tablet Take 50 mg by mouth once daily. - cyanocobalamin (VITAMIN B-12) 1,000 mcg tab Take 1,000 mcg by mouth once daily. - fluticasone (FLONASE) 50 mcg/actuation nasal spray Use 2 Sprays in each nostril twice daily. Problem List As Of Date 11/06/2021 Noted Resolved Headache(784.0) [R51] 07/18/2014 08/18/2021 Adjustment disorder with anxious mood [F43.22] 07/18/2014 Chronic daily headache [R51.9] 07/18/2014 08/18/2021 Intractable chronic migraine without aura [G43.*07/18/2014 Chronic back pain [M54.9, G89.29] 07/18/2014 08/18/2021 Chronic pain syndrome [G89.4] 07/18/2014 Opioid dependence (HCC) [F11.20] 07/18/2014 Medication overuse headache [G44.40] 07/18/2014 08/18/2021 Opiate dependence (HCC) [F11.20] 10/20/2014 08/18/19 (more content not included)... Normal [facility] Basic Metabolic Panlon 08-20 Anion gap [Moles/Vol] 6 mmol/L Low 9-18 [facility] Comment on above: Performed By: #### C BCDIF, BMP ####[place] [id number] [address] [phone] Calcium [Mass/Vol] 8.6 mg/dL Normal 8.5-10.2 [facility] Comment on above: Performed By: #### C BCDIF, BMP ####[facility] [phone] Chloride [Moles/Vol] 100 mmol/L Normal 97-105 [facility] Comment on above: Performed By: #### C BCDIF, BMP ####[facility] [phone] CO2 [Moles/Vol] 28 mmol/L Normal 22-30 [facility] Comment on above: Performed By: #### C BCDIF, BMP ####[address] Creatinine [Mass/Vol] 1.27 mg/dL High 0.73-1.22 [facility] Comment on above: Performed By: #### C BCDIF, BMP ####[place] [id number] [address] eGFR- Amer. >60 Normal >59 [facility] Comment on above: Performed By: #### C BCDIF, BMP ####[place] [address]30 [address] eGFR-All Other Races 57 . Low >59 [facility] Comment on above: Result Comment: eGFR (Estimated GFR) Units of measure: mL/min/1.73 meters squared eGFR is derived from the reexpressed MDRD Study equation using the following parameters: serum creatinine, age, gender and race. The creatinine assay has been calibrated to be traceable to IDMS. An eGFR <60 mL/min/1.73m2 for >3 months is consistent with chronic kidney disease. Refer to KDOQI guidelines for clinical interpretation. In patients with unstable renal function, e.g. those with acute kidney injury, the eGFR may not accurately reflect actual GFR. Note: On 08/24/2021, the eGFR calculation will be updated to the NKF-ASN Task Force recommended 2020 CKD-EPI creatinine equation which does not include a race variable. For more information or to access a 2020 CKD-EPI calculator, visit the National Kidney Foundation website at kidney.org/professionals/kdoqi/gfr_calculator. Performed By: #### C BCDIF, BMP ####[address] Glucose [Mass/Vol] 103 mg/dL High 74-99 [facility] Comment on above: Performed By: #### C BCDIF, BMP ####[facility] [address] Potassium [Moles/Vol] 4.6 mmol/L Normal 3.7-5.1 [facility] Comment on above: Performed By: #### C BCDIF, BMP ####[facility] [phone] Sodium [Moles/Vol] 134 mmol/L Low 136-144 [facility] Comment on above: Performed By: #### C BCDIF, BMP ####[facility] [phone] Urea nitrogen [Mass/Vol] 14 mg/dL Normal 9 [facility] Comment on above: Performed By: #### C BCDIF, BMP ####[facility] [phone] CASE MANAGEMon 08-20-2021 CASE MANAGEM HNO ID: [id number] Author: Gracia Lr RN Service: ? Author Type: Registered Nurse Type: Care Mgt Progress Note Filed: 08/20/2021 9:25 AM Note Text: CARE MANAGEMENT DISCHARGE NOTE SERVICE DATE: 08/20/2021 SERVICE TIME: 9:24 am LOS: 4 days Admission Date: 08/16/2021 DISCHARGE ARRANGEMENT (list agency and phone number) Discharge Arrangement: Home with Home Health (for PT) Provider Name: [facility] HANDOFF COMMUNICATION: Handoff to: (see summary of care) TRANSPORTATION ARRANGEMENTS: Transportation Arrangements: Car (with family member) ADDITIONAL CONTACT RESOURCES: Appointments for the Next 45 Days Saturday August 28, 2021 ?1:20 PM Post Op with Loyda Steele MD Neurosurgery ([facility]) [id number] [facility] [id number] Discharge Information Row Name Admission (Current) from 08/16/2021 in [facility] 5D Home Health Care Agency [facility] Needs Prior to Discharge: Ready for Discharge SIGNATURE: Gracia Lr RN PATIENT NAME: Mary Jimenez DATE: August 20, 2021 TIME: 9:24 AM PAGER/CONTACT #: [phone] Normal [facility] CBC and Differentialon 08-20 Abs Baso <0.03 Normal <0.11 [facility] Comment on above: Performed By: #### C BCDIF, BMP ####[place] [phone] Abs Camas 0.87 k/uL High <0.87 [facility] Comment on above: Performed By: #### C BCDIF, BMP ####[place] [phone] Abs Neut 4.76 k/uL Normal 1.45-7.50 [facility] Comment on above: Performed By: #### C BCDIF, BMP ####[place] [phone] Absolute nRBC <0.01 Normal <0.01 [facility] Comment on above: Performed By: #### C BCDIF, BMP ####[place] [phone] Basophils/100 WBC (Bld) 0.3 % [facility] Comment on above: Performed By: #### C BCDIF, BMP ####[place] [phone] DTYPE Auto Diff Normal [facility] Comment on above: Performed By: #### C BCDIF, BMP ####[place] [phone] Eosinophils (Bld) [#/Vol] 0.37 10*3/uL Normal <0.46 [facility] Comment on above: Performed By: #### C BCDIF, BMP ####[place] [phone] Eosinophils/100 WBC (Bld) 5.5 % [facility] Comment on above: Performed By: #### C BCDIF, BMP ####[place] [phone] Erythrocyte distribution width (RBC) [Ratio] 12.1 % Normal 11.5-15.0 [facility] Comment on above: Performed By: #### C BCDIF, BMP ####[address] Hematocrit (Bld) [Volume fraction] 28.8 % Low 39.0-51.0 [facility] Comment on above: Performed By: #### C BCDIF, BMP ####[place] [phone] Hemoglobin (Bld) [Mass/Vol] 9.5 g/dL Low 13.0-17.0 [facility] Comment on above: Performed By: #### C BCDIF, BMP ####[place] [phone] Lymphocytes (Bld) [#/Vol] 0.70 10*3/uL Low 1.00-4.00 [facility] Comment on above: Performed By: #### C BCDIF, BMP ####[place] [phone] Lymphocytes/100 WBC (Bld) 10.4 % Normal [facility] Comment on above: Performed By: #### C BCDIF, BMP ####[place] [phone] MCH 32.2 pG Normal 26.0-34.0 [facility] Comment on above: Performed By: #### C BCDIF, BMP ####[address] MCHC (RBC) [Mass/Vol] 33.0 g/dL Normal 30.5-36.0 [facility] Comment on above: Performed By: #### C BCDIF, BMP ####[place] [phone] MCV (RBC) [Entitic vol] 97.6 fL Normal 80.0-100.0 [facility] Comment on above: Performed By: #### C BCDIF, BMP ####[address] Monocytes/100 WBC (Bld) 12.9 % Normal [facility] Comment on above: Performed By: #### C BCDIF, BMP ####[address] Neutrophils/100 WBC (Bld) 70.9 % Normal [facility] Comment on above: Performed By: #### C BCDIF, BMP ####[address] NRBCs 0.0 /100 WBC Normal 0 [facility] Comment on above: Performed By: #### C BCDIF, BMP ####[address] Platelet mean volume (Bld) [Entitic vol] 11.3 fL Normal 9.0-12.7 [facility] Comment on above: Performed By: #### C BCDIF, BMP ####[address] Platelets (Bld) [#/Vol] 167 10*3/uL Normal 150-400 [facility] Comment on above: Performed By: #### C BCDIF, BMP ####[address] RBC (Bld) [#/Vol] 2.95 10*6/uL Low 4.20-6.00 [facility] Comment on above: Performed By: #### C BCDIF, BMP ####[address] WBC (Bld) [#/Vol] 6.72 10*3/uL Normal 3.70-11.00 [facility] Comment on above: Performed By: #### C BCDIF, BMP ####[address] CNDSon 08-20-2021 CNDS HNO ID: [id number] Author: Loyda Steele MD Service: Neurosurgery Author Type: Physician Type: Discharge Summary Filed: 09/08/2021 11:39 PM Note Text: DISCHARGE SUMMARY PATIENT NAME: Mary L Barbara Code Status: Not on file Highest Readmission Risk Score: 15 The 30 day readmissions risk score is derived from an internally validated risk model which evaluates patient level characteristics, utilization history, medication orders and lab results up until the day of discharge. Patients with a score of 40 or above are considered highest risk for readmission. Specific patient level drivers will be listed at the bottom of the summary. Admission Information Admission Information ADMIT DATE: 08/16/2021 DISCHARGE DATE: 08/20/2021 MY DOCTORS AND MEDICAL TEAM: My Main Hospital Doctor: Loyda Steele MD Primary Care Provider: Jose Ray DO My Medical Team Members: Treatment Team: Attending Provider: Loyda Steele MD Consulting: Elsy Don MD MY CONDITION AT DISCHARGE: Stable REASON I WAS IN THE HOSPITAL: Lumbar spine surgery SUMMARY OF WHAT HAPPENED WHILE I WAS IN THE HOSPITAL: You were admitted to the hospital after surgery for pain control and evaluation by physical and occupational therapy. You pain was controlled with oral medications and PT evaluated you as safe to go home with home PT. OTHER PROBLEMS/DIAGNOSIS: Principal Problem: S/P lumbar fusion Active Problems: Adjustment disorder with anxious mood Intractable chronic migraine without aura Chronic pain syndrome Opioid dependence (HCC) Primary hypertension Cerebrovascular accident (CVA) due to thrombosis ([facility]) Spondylolisthesis, lumbar region Mixed hyperlipidemia BPH (benign prostatic hyperplasia) GERD (gastroesophageal reflux disease) CKD (chronic kidney disease) stage 3, GFR 30-59 ml/min ([facility]) Resolved Problems: * No resolved hospital problems. * OPERATIONS PERFORMED WHILE IN THE HOSPITAL: L5/S1 TLIF IMPORTANT TEST/PROCEDURES: No procedures performed TEST RESULTS NOT AVAILABLE AT THIS TIME: No pending results Discharge Disposition Discharge Disposition: Home With Home Care Activity When You Leave the Hospital Avoid activities or extremely hot conditions that may cause you to perspire Do not bend over at the waist to lift heavy objects No twisting Lifting is restricted to: 10 pounds for 6 weeks May bathe and shower On post-operative day 4 No driving for: For two weeks and while on pain medications No prolonged bedrest, longer than 8 hours in a 24 hour period Diet Instructions Resume your pre-hospital diet For Pain When You Leave the Hospital If you become constipated, you may use any yejq-fat-wbbrohy treatment such as Milk of Magnesia, Sennakot, Prune Juice, Suppositories, etc. in addition to the stool softener/fiber supplement No alcohol or driving while on pain medication Other: If you've had a fusion avoid NSAIDs (aspirin, ibuprofen, Naproxen etc) for 6-12 weeks. Use acetaminophen (Tylenol) as recommended on the bottle Do not exceed 3000mg of acetaminophen per day Use the dispensed medication (see prescription) You should use an gixl-wwy-lpdqpio stool softener (Docusate sodium) and/or a fiber supplement (Metamucil, Fiber Con) every day while taking prescribed pain medication Wound/Surgical Site Care Remove old dressing, shower, pat dry, and apply clean dressing Ok to shower on post-operative day 4. If your incision is draining, keep covered with gauze and tape. Some bleeding from the wound/surgical site can be expected. If excessive, see a doctor at once Wash your hands frequently, especially before touching your incision, after using restroom and before eating Call Your Doctor If There is an unusual odor from the wound area You have pain and swelling in your legs, especially if it is only on one side and not the other You have persistent nausea/vomiting over 24 hours You have redness, swelling, pus or drainage from the wound Your temperature is greater than 101F Follow Up Appointments Follow-Up Appointment 08/28/21 With: Dr. Steele When: In 2 weeks Patient/Parents to call for appointment?: Scheduled Additional Provider to Provider Information: No notes on file Treatment Team: Attending Provider: Loyda Steele MD Consulting: Elsy Don MD Transitions of Care Critical Issues: none LABS AND PROCEDURES PENDING AT DISCHARGE: No pending results. Sepsis Ruled Out FOLLOW-UP APPOINTMENTS ALREADY SCHEDULED WITH [facility]: Future Appointments Date Time Provider Department Center 08/28/2021 1:20 PM Loyda Steele MD [facility] ALLERGIES Allergen Reactions - Penicillins Anaphylaxis - Latex Rash You may continue taking aspirin on 08/21/21 You may continue taking Plavix on 08/26/21 DISCHARGE MEDICATION: Current Discharge Medication List START taking these medications (more content not included)... [facility] NURSING PROGon 08-20-2021 NURSING PROG HNO ID: [id number] Author: Vivian Redd RN Service: ? Author Type: Advance Clinical Nurse Type: Nursing Progress Note Filed: 08/20/2021 11:13 AM Note Text: Nursing Progress Note Patient Name: Mary Jimenez Patient Location: [id number] Daily Note: Reviewed discharge instructions for spine with patient and sister as follows:showering and care of incision. Patient instructed to change dressing daily to every other day depending on the amount of drainage coming from the incision. If drainage is greater than 7 days and the character of the drainage changes to call surgeon immediately. Patient instructed if any drainage from the incision they may not shower. No tub or pools till cleared by surgeon. Discussed with patient if fever greater than 101 and interventions, use of incentive spirometry at home, use of ice no heat, SANDS of DVT and PE and interventions, wearing protocol for herbert hose/ lobo wrap compression, good nutrition for healing, good body mechanics for moving and sitting, no chairs that have not support to the spine, no abdominal lying, no driving till cleared by the surgeon, no back exercises,the only exercises that patient should be doing is isometrics and walking as much as possible, no use of nicotine of any kind and no use of NSAID unless cleared by the surgeon , these things can interfere with bone and wound healing,patient also instructed if they have any acute loss of motor function in arms and legs or loss of bowel or bladder they are to call the surgeon immediately if unable to reach go to nearest emergency room. Reviewed use of narcotics, constipation,driving. Patient aware to call if any questions or concerns. Patient given handouts to support the above information. Patient verbalizing understanding of instructions.incison well approximated with parag. Patient has some serosanguinous drainage along the incision. Some bruising along the incision. Dry sterile dressing reapplied. Patient instructed to make sure that he cleanses well with BM because close to the incision. This note was completed by: Vivian Redd [facility] NURSING PROG HNO ID: [id number] Author: Vibha Billings RN Service: ? Author Type: Registered Nurse Type: Nursing Progress Note Filed: 08/20/2021 9:51 AM Note Text: Nursing Progress Note Patient Name: Mary Jimenez Patient Location: [facility]/[id number] Assumed care of patient. Report received from Mia Bonilla RN. Patient resting comfortably in bed at this time, pain under control, VSS. Call light within reach and working. All needs met at this time. This note was completed by: Vibha Billings [facility] THERAPY NTon 08-20-2021 THERAPY NT HNO ID: [id number] Author: MEMO Whitt/Ida Service: Occupational Therapy Author Type: Occupational Therapist Type: Therapy (PT/OT/Speech/Resp) Filed: 08/20/2021 10:05 AM Note Text: OCCUPATIONAL THERAPY MISSED VISIT SERVICE DATE: 08/20/2021 SERVICE TIME: 1000 to 1000 ROOM: [id number] Patient not seen due to Declined. Pt dressed upon arrival and stated, this is my fourth spine surgery, I know what I'm doing by now. Sister at bedside, reviewed spine precautions and answered all questions and concerns. Pt is safe to d/c home via family car from an OT standpoint. SIGNATURE: KIA Whitt PATIENT NAME: Mary Jimenez DATE: August 20, 2021 TIME: 10:03 AM [facility] ALLIED HEALTHon 08-19-2021 ALLIED HEALTH HNO ID: [id number] Author: RT Disha(R) Service: Radiology Author Type: Technologist Type: Allied Health Filed: 08/19/2021 10:40 AM Note Text: Radiology Service Progress Note PATIENT NAME: Mary Jimenez DATE OF SERVICE: August 19, 2021 TIME: 10:39 AM PATIENT IDENTITY VERIFICATION COMPLETED USING TWO (2) IDENTIFIERS: Name and Date of confirmed by patient verbally and Name and Date of confirmed by identification band. FALL SCREENING: Has the patient had 2 falls in the last year or 1 fall with injury or currently using an Ambulatory Assistive Device (Walker, Cane, Wheelchair, Crutches, etc.)? No PATIENT GENDER DATA: Male PATIENT RELEVANT IMPLANT DATA REVIEWED: Not Applicable RADIOLOGY DEPARTMENT: General X-ray: Exam(s) Completed: Spine X-Ray(s): Lumbar AP / LAT / L5-S1 /WEIGHT BEARING PERIPHERAL IV DATA: Not applicable SIGNED BY: RT Disha(R) August 19, 2021 10:39 AM Normal [facility] Basic Metabolic Panlon 08-19 Anion gap [Moles/Vol] 10 mmol/L Normal - [facility] Comment on above: Performed By: #### C BCDIF, BMP ####[place] [id number] Calcium [Mass/Vol] 8.4 mg/dL Low 8.5-10.2 [facility] Comment on above: Performed By: #### C BCDIF, BMP ####[place] [id number] Chloride [Moles/Vol] 98 mmol/L Normal 97-105 [facility] Comment on above: Performed By: #### C BCDIF, BMP ####[place] [id number] CO2 [Moles/Vol] 26 mmol/L Normal 22-30 [facility] Comment on above: Performed By: #### C BCDIF, BMP ####[place] [id number] Creatinine [Mass/Vol] 1.40 mg/dL High 0.73-1.22 [facility] Comment on above: Performed By: #### C BCDIF, BMP ####[place] [id number] eGFR- Amer. >60 Normal >59 [facility] Comment on above: Performed By: #### C BCDIF, BMP ####[address] eGFR-All Other Races 51 . Low >59 [facility] Comment on above: Result Comment: eGFR (Estimated GFR) Units of measure: mL/min/1.73 meters squared eGFR is derived from the reexpressed MDRD Study equation using the following parameters: serum creatinine, age, gender and race. The creatinine assay has been calibrated to be traceable to IDMS. An eGFR <60 mL/min/1.73m2 for >3 months is consistent with chronic kidney disease. Refer to KDOQI guidelines for clinical interpretation. In patients with unstable renal function, e.g. those with acute kidney injury, the eGFR may not accurately reflect actual GFR. Note: On 08/24/2021, the eGFR calculation will be updated to the NKF-ASN Task Force recommended 2020 CKD-EPI creatinine equation which does not include a race variable. For more information or to access a 2020 CKD-EPI calculator, visit the National Kidney Foundation website at kidney.org/professionals/kdoqi/gfr_calculator. Performed By: #### C ETHAN BMP ####[address] Glucose [Mass/Vol] 109 mg/dL High 74-99 [facility] Comment on above: Performed By: #### C ETHAN BMP ####[address] Potassium [Moles/Vol] 3.9 mmol/L Normal 3.7-5.1 [facility] Comment on above: Performed By: #### C BCALMAF, BMP ####[address] Sodium [Moles/Vol] 134 mmol/L Low 136-144 [facility] Comment on above: Performed By: #### C BCDIF, BMP ####[address] Urea nitrogen [Mass/Vol] 16 mg/dL Normal 9-24 [facility] Comment on above: Performed By: #### C BCALMAF, BMP ####[place] [id number] CASE MANAGEMon 08-19-2021 CASE MANAGEM HNO ID: [id number] Author: Gracia Lr RN Service: ? Author Type: Registered Nurse Type: Care Mgt Progress Note Filed: 08/19/2021 12:40 PM Note Text: CARE MANAGEMENT PROGRESS NOTE SERVICE DATE: 08/19/2021 SERVICE TIME: 12:39 pm LOS: 3 days CM working on securing a home care agency for home PT, no DC order yet, says he has a ride home tomorrow. SIGNATURE: Gracia Lr RN PATIENT NAME: Mary Jimenez DATE: August 19, 2021 TIME: 12:39 PM PAGER/CONTACT #: [phone] [facility] CBC and Differentialon 08-19 Abs Baso 0.04 k/uL Normal <0.11 [facility] Comment on above: Performed By: #### C ETHNA BMP ####[place] [id number] Abs Camas 0.85 k/uL Normal <0.87 [facility] Comment on above: Performed By: #### Jacqueline LONG BMP ####[place] [id number] Abs Neut 4.46 k/uL Normal 1.45-7.50 [facility] Comment on above: Performed By: #### C ETHAN BMP ####[place] [id number] Absolute nRBC <0.01 Normal <0.01 [facility] Comment on above: Performed By: #### C ETHAN BMP ####[place] [id number] Basophils/100 WBC (Bld) 0.6 % Normal [facility] Comment on above: Performed By: #### C ETHNA BMP ####[place] [id number] DTYPE Auto Diff Normal [facility] Comment on above: Performed By: #### C BCDIF, BMP ####[place] [id number] Eosinophils (Bld) [#/Vol] 0.27 10*3/uL Normal <0.46 [facility] Comment on above: Performed By: #### C BCDIF, BMP ####[place] [id number] Eosinophils/100 WBC (Bld) 4.3 % [facility] Comment on above: Performed By: #### C BCDIF, BMP ####[place] [id number] Erythrocyte distribution width (RBC) [Ratio] 12.1 % Normal 11.5-15.0 [facility] Comment on above: Performed By: #### C BCDIF, BMP ####[place] [id number] Hematocrit (Bld) [Volume fraction] 28.9 % Low 39.0-51.0 [facility] Comment on above: Performed By: #### C BCDIF, BMP ####[place] [id number] Hemoglobin (Bld) [Mass/Vol] 9.7 g/dL Low 13.0-17.0 [facility] Comment on above: Performed By: #### C BCDIF, BMP ####[place] [id number] Lymphocytes (Bld) [#/Vol] 0.61 10*3/uL Low 1.00-4.00 [facility] Comment on above: Performed By: #### C BCDIF, BMP ####[place] [id number] Lymphocytes/100 WBC (Bld) 9.8 % [facility] Comment on above: Performed By: #### C BCDIF, BMP ####[place] [id number] MCH 32.4 pG Normal 26.0-34.0 [facility] Comment on above: Performed By: #### C ETHAN BMP ####[address] MCHC (RBC) [Mass/Vol] 33.6 g/dL Normal 30.5-36.0 [facility] Comment on above: Performed By: #### C ETHAN, BMP ####[address] MCV (RBC) [Entitic vol] 96.7 fL Normal 80.0-100.0 [facility] Comment on above: Performed By: #### C ETHAN BMP ####[address] Monocytes/100 WBC (Bld) 13.6 % Normal [facility] Comment on above: Performed By: #### C ETHAN BMP ####[address] Neutrophils/100 WBC (Bld) 71.7 % Normal [facility] Comment on above: Performed By: #### C ETHAN, BMP ####[address] NRBCs 0.0 /100 WBC Normal 0 [facility] Comment on above: Performed By: #### C ETHAN, BMP ####[address] Platelet mean volume (Bld) [Entitic vol] 11.1 fL Normal 9.0-12.7 [facility] Comment on above: Performed By: #### C ETHAN, BMP ####[address] Platelets (Bld) [#/Vol] 130 10*3/uL Low 150-400 [facility] Comment on above: Performed By: #### C ETHAN, BMP ####[address] RBC (Bld) [#/Vol] 2.99 10*6/uL Low 4.20-6.00 [facility] Comment on above: Performed By: #### C BCDIF, BMP ####[facility] [id number] [phone] WBC (Bld) [#/Vol] 6.23 10*3/uL Normal 3.70-11.00 [facility] Comment on above: Performed By: #### C BCDIF, BMP ####[facility] [id number] [phone] OPERATIVE NOon 08-19-2021 OPERATIVE NO HNO ID: [id number] Author: Loyda Steele MD Service: Neurosurgery Author Type: Physician Type: Operative Report Filed: 08/19/2021 5:38 AM Note Text: OPERATIVE/PROCEDURE REPORT LOG ID: [id number] SURGERY/PROCEDURE DATE: 08/16/2021 INCISION/PROCEDURE START TIME: 11:17 AM INCISION CLOSE/PROCEDURE END TIME: 3:26 PM SURGEON(S)/PROCEDURALIST (S) AND CIGARETTE MAKING MACHINE CATCHER(S): Surgeon(s) and Role: * Loyda Steele MD - Primary Physician Stamp Analyst: Christine Gutierrez PA-C SURGERY/PROCEDURE(S): L5/S1 TLIF ANESTHESIA: General INDICATION: 61-year-old male who presented clinic symptoms of low back pain > (L>>R) L5 radiculopathy. X-ray and MRI lumbar spine showed grade 1 spondylolisthesis at L5-S1 below previous L4-5 fusion. There was noted to be hypermobility at that level as well. Given symptoms locations and imaging finding decision was made for L5-S1 TLIF. SURGERY/PROCEDURE DETAILS: A midline lumbar incision was created using a #10 blade scalpel and carried down through the subcutaneous tissue. Monopolar cautery was utilized for hemostasis and then to divide along the midline down to the spinous processes. The fascia was opened and of the L5 level was dissected free in the subperiosteal plane. Dissection was carried out laterally over the transverse processes of L5. Prior hardware is identified. The right L4 screw was removed given slight breach medially. The spinous process and a bulk of the lamina were removed with a Leksell rongeur and save this bone for arthrodesis later in the operation. A high speed air drill removed the remaining lamina over the region of the ligamentum flavum. Kerrison rongeurs completed the laminectomy. The lateral recesses were completely decompressed and the L5 neural foramina were decompressed with Kerrison rongeurs. The left side inferior articulating facet and the pars of the L5 level were removed. The superior articulating process of the S1 level was removed on the same side. The disc space was identified and an annulotomy created with a #11 blade scalpel. The disc space was entered with leticia and spreaders. The endplates were prepared and a trial was placed into the disc space. A trial interbody cage was used and sized at a expandable cage 10-16 mm. The Ahometo system was the instrumentation system used. Local autograft was used to pack the disc space in the anterior region. At that point, the interbody cage with local autograft was introduced into the disk space and positioned in the appropriate fashion. Again, local autograft was used to pack the posterior aspect of the disc space. Then, attention was turned towards placing the pedicle screws. The inferolateral aspect of the S1 joint were identified bilaterally. The high speed air drill was used to make a small missile control pilot hole. The gear shift along with pedicle probe verification was created the pedicle screw trajectory. Each screw trajectory was tapped, pedicle probe verified, and then a MRI-compatible multi-axial pedicle screw was inserted. Screw sizes utilized: 6.5*50 At that point, small MRI-compatible rods were used to connect the screws on each side. Cross-table lateral x-ray demonstrated appropriate position of the hardware. The screw nuts were torqued to final tightness. The transverse process was decorticated with the high speed air drill. Local autograft was placed over the transverse process to perform an arthrodesis. A drain was tunneled out of the wound. Incision was closed in 3 layers. 1 Vicryl for fascia, 2-0 Vicryl for subcutaneous layer, parag for skin. Dressing was applied. Patient was gently emerged from anesthesia and was transferred to PACU in stable condition. PRE-OP/PRE-PROCEDURE DIAGNOSIS: L5/S1 spondylolisthesis POST-OP/POST-PROCEDURE DIAGNOSIS: L5/S1 spondylolisthesis ESTIMATED BLOOD LOSS: 1000 mls SPECIMENS: None IMPLANTABLE DEVICES: Implant Name Type Inv. Item Serial No. Cordwainer Lot No. LRB No. Used Action GRAFT INFUSE 14MM SMALL BOVINE COLLAGEN RHBMP-2 23MM BONE ABSORBABLE SPONGE - [id number] Bone GRAFT INFUSE 14MM SMALL BOVINE COLLAGEN RHBMP-2 23MM BONE ABSORBABLE SPONGE Storee SOFSocial Touch DANEK [id number] N/A 1 Implanted Prolift expandable spacer Implant [id number] IMPLANT JANETT [id number] N/A 1 Implanted SCREW JORDANA 3 TITANIUM SET CORNELL SPINE - [id number] Implant SCREW JORDANA 3 TITANIUM SET CORNELL SPINE JANETT SPINE N/A 5 Implanted SCREW JORDANA 3 VARGAS 6.5MM 50MM BONE POLYAXIAL NONSTERILE SPINE - [id number] Screw SCREW JORDANA 3 VARGAS 6.5MM 50MM BONE POLYAXIAL NONSTERILE SPINE JANETT SPINE N/A 2 Implanted LAMONTE JORDANA 3 6MM TITANIUM 50MM SPINAL RADIOLUCENT - [id number] Lamonte LAMONTE JORDANA 3 6MM TITANIUM 50MM SPINAL RADIOLUCENT JANETT SPINE N/A 1 Implanted LAMONTE JORDANA 3 6MM TITANIUM 70MM SPINAL RADIOLUCENT - [id number] Lamonte LAMONTE JORDANA 3 6MM TITANIUM 70MM SPINAL RADIOLUCENT JANETT SPINE N/A 1 Implanted DRAINS: Subfascial drain COMPLICATIONS: None PARTICIPATION I (more content not included)... [facility] THERAPY NTon 08-19-2021 THERAPY NT HNO ID: [id number] Author: Dionte Estrada PT Service: Physical Therapy Author Type: Physical Therapist Type: Therapy (PT/OT/Speech/Resp) Filed: 08/19/2021 11:31 AM Note Text: Physical Therapy Treatment SERVICE DATE: 08/19/2021 SERVICE TIME: 1054 to 1118 ROOM: [place] [address] Recommended Discharge Disposition: Home PT Recommended Discharge Disposition Comments: Pt has progressed to mod I with WW and is at sup with stairs using cane. Safe to d/c home with PRN A from ex and home PT. Recommended Discharge Disposition Due to: Patient requires daily, facility-based rehabilitation from at least one discipline due to:;ADL impairment resulting in caregiver dependence;decline in functional status requiring daily skilled care;ongoing intervention of multiple therapy disciplines Anticipated Discharge Needs: Physical Assist at Home Physical Assist at Home for: Transfers;Cleaning;Laund ry;Meals;Stairs;Safety;S elf Care;Shopping;Transporta tion Recommended Discharge Equipment: No equipment needs anticipated (pt owns all needed PT DME) PT 6 Clicks Score: 23 Precautions/Activity Restrictions: Spine Current Hospital Course: s/p L5/S1 TLIF on 08/16 Reason for Hospital Admission: sx for L5/S1 spondylolisthesis Relevant Past Medical History: migraines, opioid dependence, CVA, other back surgeries Response to Therapy Interventions: Good participation in activities, Improved tolerance for activity, Notable progression with functional activities/skills, On-track to achieve discharge goals, Pain, Requires additional time to complete activities Continue skilled needs due to: Functional mobility/skill impairments Physical Therapy Problem List: Pain;Functional Mobility Impairment;Decreased Strength;Balance Impaired;Sensory Deficit;Decreased Activity Tolerance Treatment Interventions: Energy Conservation Training;Joint Mobility;Strengthening;F unctional Mobility Training;Balance Training Plan for next visit: Bed mobility, Gait training, Sit to Stand Transfers, Stairs training Home Environment Patient Lives With: Self/Alone Assistance Available: None Entry To Home: Stairs;With Rail (suresh HR) Number Of Stairs Into Home: 5 Number Of Stairs To Bed/Bath: 15 Stairs to Bed/Bath with: Unilateral Rail Tub/Shower Type: tub shower with grab bar and shower chair Laundry: main floor Equipment Owned: Cane;Wheeled Walker;Wire Transfer Clerk;Grab Bars-Shower;ADL Kit;Elevated Toilet Seat;Extended tub bench Prior Functional Level: Within Functional Limits;History of Falls Prior Functional Level Comments: Pt IND w/ all using cane less than 50% of time, however it was difficult due to pain. + drives. - works. 2 falls in last year (slip on ice/dog tripped) Patient Report: Pt reported feeling safe and ready to d/c home, however does not have a ride until tomorrow. CURRENT FUNCTIONAL STATUS: Most recent performance Current Functional Mobility Assist Level Additional Information Rolling Supervision Supine to Sit Supervision without hospital bed features. Increased time needed. Sit to Supine Supervision Scooting Supervision Sit to Stand Modified Independent . Stand to Sit Modified Independent Bed to Chair Modified Independent Bed To Chair Transfer Type: Stepping Bed To Chair Transfer Equipment: Wheeled Walker Toilet/Commode Gait Modified Independent;Supervision Gait Device: Wheeled Walker;Cane Gait Distance (feet): 105 ft x 2 Pt mod I with WW, but requires close sup with cane. Pt had no overt LOB, but was unsteady with cane. Endurance still limits distance and pt requires occassional standing rest break. Stairs Supervision;Contact Guard Assistance;Additional Information Stairs Device: Cane;Rail Number of Stairs: 3 (x3) CGA prog to sup. VC for cane sequencing on stairs. Curb Step Car Transfer Blank paez indicate activity not attempted General Deviations/Observations: Antalgic gait;Michaela decreased;Flexed trunk posture;Non-functional gait speed;Shuffling Gait;UE weight bearing on assistive device excessive;Improper distancing from assistive device Balance: Dynamic Standing Static Sitting Balance: Normal Patient able to maintain steady balance without handhold support Static Standing Balance: Good Patient able to maintain balance without handhold support, limited postural sway Dynamic Standing Balance: Fair Patient accepts minimal challenge, able to maintain balance while turning head/trunk -M: 7: Walk 25 feet or more Learning/Educational Needs: Discharge Plan;Functional Activities/Mobility;Pain Management;Plan of Care;Changes in Plan of Care;Precautions;PT In-Hospital Exercise Program;Rehabilitation Techniques and Procedures;Safety Goals for Plan of Care: Patient /Caregiver Goals: Go Home Goals: Patient will demonstrate understanding of importance of mobility during hospital stay and resolve all functional needs identified.;Patient will demonstrate progress with func (more content not included)... [facility] XR LUMBAR 2V AP/LATon 2021 XR LUMBAR 2V AP/LAT * * *Final Report* * * DATE OF EXAM: Aug 19 2021 10:38AM LUX 5229 - XR LUMBAR 2V AP/LAT / PROCEDURE REASON: L/S-spine fusion, follow up * * * * Physician Interpretation * * * * Lumbar spine History: L/S-spine fusion, follow up Findings: AP and lateral views were performed. Screws at the L4, L5 and S1 level with associated longitudinal stabilization rods. Radiopaque spacer L5-S1 disc space. Status post interbody fusion procedure L4-5 with radiopaque spacers. Lumbar stimulator wires and associated generator noted. Alignment anatomic. Counting reference: Lumbosacral junction. For the purposes of this report, L4-5 is considered the level of the iliac crest and there are 5 lumbar-type vertebrae. Anatomic Variants: None. IMPRESSION: Postoperative findings as given in results. Senior Informatica Developer: PSCB Transcribe Date/Time: Aug 19 2021 11:14A Dictated by : SHARMIN PEREZ MD This examination was interpreted and the report reviewed and electronically signed by: SHARMIN PEREZ MD on Aug 19 2021 11:18AM EST [id number] Normal [facility] Basic Metabolic Panlon 08-18 Anion gap [Moles/Vol] 10 mmol/L Normal 9-18 [facility] Comment on above: Performed By: #### B MP, CBC ####[place] [id number] Calcium [Mass/Vol] 8.7 mg/dL Normal 8.5-10.2 [facility] Comment on above: Performed By: #### B MP, CBC ####[place] [id number] Chloride [Moles/Vol] 98 mmol/L Normal 97-105 [facility] Comment on above: Performed By: #### B MP, CBC ####[place] [id number] CO2 [Moles/Vol] 28 mmol/L Normal 22-30 [facility] Comment on above: Performed By: #### B MP, CBC ####[place] [id number] Creatinine [Mass/Vol] 1.33 mg/dL High 0.73-1.22 [facility] Comment on above: Performed By: #### B MP, CBC ####[place] [id number] eGFR- Amer. >60 Normal >59 [facility] Comment on above: Performed By: #### B MP, CBC ####[place] [id number] eGFR-All Other Races 54 . Low >59 [facility] Comment on above: Result Comment: eGFR (Estimated GFR) Units of measure: mL/min/1.73 meters squared eGFR is derived from the reexpressed MDRD Study equation using the following parameters: serum creatinine, age, gender and race. The creatinine assay has been calibrated to be traceable to IDMS. An eGFR <60 mL/min/1.73m2 for >3 months is consistent with chronic kidney disease. Refer to KDOQI guidelines for clinical interpretation. In patients with unstable renal function, e.g. those with acute kidney injury, the eGFR may not accurately reflect actual GFR. Note: On 08/24/2021, the eGFR calculation will be updated to the NKF-ASN Task Force recommended 2020 CKD-EPI creatinine equation which does not include a race variable. For more information or to access a 2020 CKD-EPI calculator, visit the National Kidney Foundation website at kidney.org/professionals/kdoqi/gfr_calculator. Performed By: #### Agustín ROBERSON, CBC ####[place] [id number] Glucose [Mass/Vol] 109 mg/dL High 74-99 [facility] Comment on above: Performed By: #### Agustín ROBERSON, CBC ####[place] [id number] Potassium [Moles/Vol] 4.2 mmol/L Normal 3.7-5.1 [facility] Comment on above: Performed By: #### Agustín ROBERSON, CBC ####[place] [phone] Sodium [Moles/Vol] 136 mmol/L Normal 136-144 [facility] Comment on above: Performed By: #### B MP, CBC ####[place] [phone] Urea nitrogen [Mass/Vol] 13 mg/dL Normal 9-24 [facility] Comment on above: Performed By: #### B KAROL, CBC ####[place] [phone] CBCon 08-18-2021 Absolute nRBC <0.01 Normal <0.01 [facility] Comment on above: Performed By: #### B KAROL, CBC ####[address] Erythrocyte distribution width (RBC) [Ratio] 12.3 % Normal 11.5-15.0 [facility] Comment on above: Performed By: #### B MP, CBC ####[address] Hematocrit (Bld) [Volume fraction] 31.9 % Low 39.0-51.0 [facility] Comment on above: Performed By: #### B MP, CBC ####[place] [phone] Hemoglobin (Bld) [Mass/Vol] 10.4 g/dL Low 13.0-17.0 [facility] Comment on above: Performed By: #### B MP, CBC ####[place] [id number] MCH 32.3 pG Normal 26.0-34.0 [facility] Comment on above: Performed By: #### B MP, CBC ####[address] MCHC (RBC) [Mass/Vol] 32.6 g/dL Normal 30.5-36.0 [facility] Comment on above: Performed By: #### B MP, CBC ####[address] MCV (RBC) [Entitic vol] 99.1 fL Normal 80.0-100.0 [facility] Comment on above: Performed By: #### B MP, CBC ####[place] [phone] Platelet mean volume (Bld) [Entitic vol] 11.6 fL Normal 9.0-12.7 [facility] Comment on above: Performed By: #### B MP, CBC ####[address] Platelets (Bld) [#/Vol] 133 10*3/uL Low 150-400 [facility] Comment on above: Performed By: #### B MP, CBC ####[facility] RBC (Bld) [#/Vol] 3.22 10*6/uL Low 4.20-6.00 [facility] Comment on above: Performed By: #### B MP, CBC ####[facility] WBC (Bld) [#/Vol] 8.49 10*3/uL Normal 3.70-11.00 [facility] Comment on above: Performed By: #### B MP, CBC ####[address] THERAPY NTon 08-18-2021 THERAPY NT HNO ID: [id number] Author: Jon Calderón PTA Service: Physical Therapy Author Type: Route Rider Supervisor Type: Therapy (PT/OT/Speech/Resp) Filed: 08/18/2021 5:59 PM Note Text: -------- Attestation signed by Italia Morales PT at 08/19/2021 3:13 PM I reviewed and agree with the documentation corresponding to this therapy visit. SIGNATURE: Italia Morales PT DATE: August 19, 2021 TIME: 3:13 PM -------- Physical Therapy Treatment SERVICE DATE: 08/18/2021 SERVICE TIME: 1420 to 1500 ROOM: [place] [address] Recommended Discharge Disposition: Home PT Recommended Discharge Disposition Comments: Pt currently very limited by pain and weakness requiring mod A for mobility. Pt has little to no assistance at home and must perform at 15 stairs. Due to the above circumstances pt unsafe to d/c home, however hopeful that pt if pt can progress to mod I then possible d/c home. Recommended Discharge Disposition Due to: Patient requires daily, facility-based rehabilitation from at least one discipline due to:;ADL impairment resulting in caregiver dependence;decline in functional status requiring daily skilled care;ongoing intervention of multiple therapy disciplines Anticipated Discharge Needs: Physical Assist at Home Physical Assist at Home for: Transfers;Cleaning;Laund ry;Meals;Stairs;Safety;S elf Care;Shopping;Transporta tion Recommended Discharge Equipment: To Be Determined PT 6 Clicks Score: 22 Pt demos improved endurance/able to manage steps..patient debating home vs homecare but recommend homecare to improve strength/endurance/impro ve stairclimbing at home Precautions/Activity Restrictions: Spine Current Hospital Course: s/p L5/S1 TLIF on 08/16 Reason for Hospital Admission: sx for L5/S1 spondylolisthesis Relevant Past Medical History: migraines, opioid dependence, CVA, other back surgeries Response to Therapy Interventions: Good participation in activities, On-track to achieve discharge goals Continue skilled needs due to: Functional mobility/skill impairments Physical Therapy Problem List: Pain;Functional Mobility Impairment;Decreased Strength;Balance Impaired;Sensory Deficit;Decreased Activity Tolerance Treatment Interventions: Energy Conservation Training;Joint Mobility;Strengthening;F unctional Mobility Training;Balance Training Home Environment Patient Lives With: Self/Alone Assistance Available: None Entry To Home: Stairs;With Rail (suresh HR) Number Of Stairs Into Home: 5 Number Of Stairs To Bed/Bath: 15 Stairs to Bed/Bath with: Unilateral Rail Tub/Shower Type: tub shower with grab bar and shower chair Laundry: main floor Equipment Owned: Cane;Wheeled Walker;Wire Transfer Clerk;Grab Bars-Shower;ADL Kit;Elevated Toilet Seat;Extended tub bench Prior Functional Level: Within Functional Limits;History of Falls Prior Functional Level Comments: Pt IND w/ all using cane less than 50% of time, however it was difficult due to pain. + drives. - works. 2 falls in last year (slip on ice/dog tripped) Patient Report: pt agreeable to PT session CURRENT FUNCTIONAL STATUS: Most recent performance Current Functional Mobility Assist Level Additional Information Rolling Supervision Supine to Sit Supervision Sit to Supine Scooting Supervision Sit to Stand Supervision Stand to Sit Supervision Bed to Chair Supervision Bed To Chair Transfer Type: Stepping Bed To Chair Transfer Equipment: Wheeled Walker Toilet/Commode Gait Stand By Assistance Gait Device: Wheeled Walker Gait Distance (feet): 100 x 2 Stairs Minimal Assistance Stairs Device: Rail Number of Stairs: 1 (also practice 13 steps-for bathroom mgmt) b rails vs B hands on R rail Curb Step Car Transfer Blank paez indicate activity not attempted General Deviations/Observations: Antalgic gait;Michaela decreased;Flexed trunk posture;Non-functional gait speed;Shuffling Gait;UE weight bearing on assistive device excessive;Improper distancing from assistive device Balance: Dynamic Standing Static Sitting Balance: Normal Patient able to maintain steady balance without handhold support Static Standing Balance: Good Patient able to maintain balance without handhold support, limited postural sway Dynamic Standing Balance: Fair Patient accepts minimal challenge, able to maintain balance while turning head/trunk -HLM: 7: Walk 25 feet or more Learning/Educational Needs: Discharge Plan;Functional Activities/Mobility;Pain Management;Plan of Care;Changes in Plan of Care;Precautions;PT In-Hospital Exercise Program;Rehabilitation Techniques and Procedures;Safety Goals for Plan of Care: Patient /Caregiver Goals: Go Home Goals: Patient will demonstrate understanding of importance of mobility during hospital stay and resolve all functional needs identified.;Patient rob (more content not included)... [facility] THERAPY NT HNO ID: [id number] Author: Chalo Galvan OT/Ida Service: Occupational Therapy Author Type: Occupational Therapist Type: Therapy (PT/OT/Speech/Resp) Filed: 08/18/2021 4:58 PM Note Text: OCCUPATIONAL THERAPY MISSED VISIT SERVICE DATE: 08/18/2021 SERVICE TIME: 1548 to 1549 ROOM: [place] [address] Patient not seen due to Declined. Patient states that this is his fourth back surgery, and he knows how to complete LB ADLs using compensatory techniques and AE from prior therapy following those surgeries. Patient pleasant and cooperative but states he would rather do those things when he is getting ready to leave the hospital. Will see patient for OT session to complete ADLs prior to discharge as able. SIGNATURE: Chalo Galvan OT/L PATIENT NAME: Mary Jimenez DATE: August 18, 2021 TIME: 4:57 PM Normal [facility] Basic Metabolic Panlon 08-17 Anion gap [Moles/Vol] 7 mmol/L Low 9-18 [facility] Comment on above: Performed By: #### C BC, BMP ####[place] [id number] [place] [phone] Calcium [Mass/Vol] 8.3 mg/dL Low 8.5-10.2 [facility] Comment on above: Performed By: #### C BC, BMP ####[place] [phone] Chloride [Moles/Vol] 98 mmol/L Normal 97-105 [facility] Comment on above: Performed By: #### C BC, BMP ####[place] [phone] CO2 [Moles/Vol] 29 mmol/L Normal 22-30 [facility] Comment on above: Performed By: #### C BC, BMP ####[address] Creatinine [Mass/Vol] 1.25 mg/dL High 0.73-1.22 [facility] Comment on above: Performed By: #### C BC, BMP ####[place] [id number] [address] eGFR- Amer. >60 Normal >59 [facility] Comment on above: Performed By: #### C BC, BMP ####[address] eGFR-All Other Races 59 . Low >59 [facility] Comment on above: Result Comment: eGFR (Estimated GFR) Units of measure: mL/min/1.73 meters squared eGFR is derived from the reexpressed MDRD Study equation using the following parameters: serum creatinine, age, gender and race. The creatinine assay has been calibrated to be traceable to IDMS. An eGFR <60 mL/min/1.73m2 for >3 months is consistent with chronic kidney disease. Refer to KDOQI guidelines for clinical interpretation. In patients with unstable renal function, e.g. those with acute kidney injury, the eGFR may not accurately reflect actual GFR. Note: On 08/24/2021, the eGFR calculation will be updated to the NKF-ASN Task Force recommended 2020 CKD-EPI creatinine equation which does not include a race variable. For more information or to access a 2020 CKD-EPI calculator, visit the National Kidney Foundation website at kidney.org/professionals/kdoqi/gfr_calculator. Performed By: #### C BARBY, BMP ####[place] [phone] Glucose [Mass/Vol] 135 mg/dL High 74-99 [facility] Comment on above: Performed By: #### C BARBY, BMP ####[place] [phone] Potassium [Moles/Vol] 4.2 mmol/L Normal 3.7-5.1 [facility] Comment on above: Performed By: #### C BARBY, BMP ####[place] [phone] Sodium [Moles/Vol] 134 mmol/L Low 136-144 [facility] Comment on above: Performed By: #### C BRABY, BMP ####[place] [phone] Urea nitrogen [Mass/Vol] 16 mg/dL Normal 9-24 [facility] Comment on above: Performed By: #### C BARBY, BMP ####[place] [phone] CBCon 08-17-2021 Absolute nRBC <0.01 Normal <0.01 [facility] Comment on above: Performed By: #### C BARBY, BMP ####[place] [phone] Erythrocyte distribution width (RBC) [Ratio] 12.3 % Normal 11.5-15.0 [facility] Comment on above: Performed By: #### C BARBY, BMP ####[address] Hematocrit (Bld) [Volume fraction] 33.6 % Low 39.0-51.0 [facility] Comment on above: Performed By: #### C BC, BMP ####[address] Hemoglobin (Bld) [Mass/Vol] 11.2 g/dL Low 13.0-17.0 [facility] Comment on above: Performed By: #### C BARBY, BMP ####[address] MCH 32.4 pG Normal 26.0-34.0 [facility] Comment on above: Performed By: #### C BARBY, BMP ####[address] MCHC (RBC) [Mass/Vol] 33.3 g/dL Normal 30.5-36.0 [facility] Comment on above: Performed By: #### C BARBY, BMP ####[address] MCV (RBC) [Entitic vol] 97.1 fL Normal 80.0-100.0 [facility] Comment on above: Performed By: #### C BARBY, BMP ####[address] Platelet mean volume (Bld) [Entitic vol] 10.9 fL Normal 9.0-12.7 [facility] Comment on above: Performed By: #### C BARBY, BMP ####[address] Platelets (Bld) [#/Vol] 129 10*3/uL Low 150-400 [facility] Comment on above: Performed By: #### C BC, BMP ####[address] RBC (Bld) [#/Vol] 3.46 10*6/uL Low 4.20-6.00 [facility] Comment on above: Performed By: #### C BC, BMP ####[facility] [phone] WBC (Bld) [#/Vol] 8.02 10*3/uL Normal 3.70-11.00 [facility] Comment on above: Performed By: #### C BC, BMP ####[facility] [phone] CONSULTon 08-17-2021 CONSULT HNO ID: [id number] Author: Elsy Don MD Service: General Internal Medicine Author Type: Physician Type: Consults Filed: 08/17/2021 12:27 PM Note Text: INTERNAL MEDICINE CONSULT HISTORY AND PHYSICAL PLEASE DO NOT REMOVE FROM THE CHART OR MODIFY PRINTED COPY Patient Name: Mary Jimenez PRIMARY CARE PHYSICIAN: Jose Ray DO CONSULTING PHYSICIAN: Loyda Steele MD MD DATE of CONSULT: 12:23 PM HPI: This is a 61 year old male who presents with TLIF DECOMPRESSION LAMINECTOMY INTERBODY FUSION LUMBAR POSTERIOR (PLIF) LEVEL 1 (N/A Spine Lumbar) POSTERIOR NON-SEGMENTAL INSTRUMENTATION FOLLOWING LUMBAR FUSION 1 LEVEL PDFI (N/A Spine Lumbar) INSERTION INTERBODY BIOMED DEVICE(S) W/ANT INSTR ANCHORING TO DISC SPACE W/INTERBODY FUSION,EA INTERSPACE (N/A Spine Lumbar) - L5S1 TLIF/ pt seen felt well . No sob no weakness . No cp/ sob . Pt slept ok . No fever or chills . Pt urgency / no weakness . No sob . No urgency pain 4/10 PAST MEDICAL HISTORY: PAST MEDICAL HISTORY Diagnosis Date - Anxiety - Dyslipidemia - Hypertension - Obstructive sleep apnea - Stroke (HCC) - Urinary retention PAST SURGICAL HISTORY: PAST SURGICAL HISTORY Procedure Laterality Date - PAST SURGICAL HISTORY OF 12/07/14 L4-5 FAMILY HISTORY: FAMILY HISTORY Problem Relation Age of Onset - Diabetes Mother SOCIAL HISTORY: Social History Tobacco Use - Smoking status: Never Smoker - Smokeless tobacco: Never Used Substance Use Topics - Alcohol use: Yes Comment: 2 glasses of wine per day. - Drug use: No Comment: denies tx for drug/alcohol abuse in the past. ALLERGIES: ALLERGIES Allergen Reactions - Penicillins Anaphylaxis - Latex Rash PRIOR TO ADMISSION MEDICATIONS: pregabalin (LYRICA) 100 mg capsule, Take 1 capsule by mouth three times daily., Disp: , Rfl: , 08/15/2021 at 2100 mupirocin (BACTROBAN) 2 % ointment, Apply 1/2 Bactroban with a cotton swab to each nostril in the morning and at bedtime starting 5 days prior to surgery date., Disp: 22 g, Rfl: 0, 08/16/2021 at 0400 aspirin 325 mg tablet, Take 325 mg by mouth as needed., Disp: , Rfl: , 08/15/2021 at 0800 prasterone, dhea, (DHEA) 50 mg tab, Take by mouth once daily., Disp: , Rfl: , Past Week at Unknown time nortriptyline (PAMELOR) 50 mg capsule, Take 50 mg by mouth daily at bedtime., Disp: , Rfl: , 08/15/2021 at 2100 diclofenac sodium (VOLTAREN) 1 % topical gel, Apply to affected area three times daily. , Disp: , Rfl: , 08/15/2021 at 1300 finasteride (PROSCAR) 5 mg tablet, Take 5 mg by mouth once daily. , Disp: , Rfl: , 08/15/2021 at 2100 HYDROcodone-acetaminophe n (NORCO) 5-325 mg per tablet, three times daily. , Disp: , Rfl: , 08/15/2021 at 2100 doxepin capsule 10 mg, Take 10 mg by mouth daily at bedtime. Takes 2 tabs at bedtime , Disp: , Rfl: , 08/15/2021 at 2100 clopidogrel (PLAVIX) 75 mg tablet, Take 1 tablet by mouth once daily., Disp: , Rfl: 0, Past Week at Unknown time atorvastatin (LIPITOR) 80 mg tablet, Take 80 mg by mouth once daily. , Disp: , Rfl: , 08/15/2021 at 13197 OMEPRAZOLE (PRILOSEC ORAL), Take 40 mg by mouth once daily., Disp: , Rfl: , 08/16/2021 at 0400 DULoxetine (CYMBALTA) 30 mg capsule, Take 1 capsule by mouth once daily. Take with 60 mg for 90 mg total dose. (Patient taking differently: Take 30 mg by mouth three times daily. Takes 30 mg three times daily per patient ), Disp: 30 capsule, Rfl: 11, 08/15/2021 at 2100 baclofen (LIORESAL) 20 mg tablet, Take 20 mg by mouth once daily. , Disp: , Rfl: , 08/15/2021 at 0800 furosemide (LASIX) 40 mg tablet, Take 40 mg by mouth once daily., Disp: , Rfl: , 08/15/2021 at 0800 doxazosin (CARDURA) 4 mg tablet, Take 4 mg by mouth once daily. , Disp: , Rfl: , 08/15/2021 at 2100 metoprolol succinate XL, long acting, (TOPROL XL) 50 mg 24 hr tablet, Take 50 mg by mouth once daily., Disp: , Rfl: , 08/16/2021 at 0400 valACYclovir (VALTREX) 500 mg tablet, Take 500 mg by mouth as needed. , Disp: , Rfl: , 08/15/2021 at 0800 telmisartan (MICARDIS) 80 mg tablet, Take 80 mg by mouth once daily., Disp: , Rfl: , 08/15/2021 at 1300 fluticasone (FLONASE) 50 mcg/actuation nasal spray, Use 2 Sprays in each nostril twice daily. , Disp: , Rfl: , 08/16/2021 at 0400 Ascorbic Acid (VITAMIN C) 500 mg chew, Take 500 mg by mouth once daily., Disp: , Rfl: , 08/02/2021 rizatriptan (MAXALT) 10 mg tablet, Take 10 mg by mouth as needed. 3 times daily as needed, Disp: , Rfl: , Unknown at Unknown time sildenafil (VIAGRA) 50 mg tablet, Take 50 mg by mouth as needed., Disp: , Rfl: Phentermine HCl 37.5 mg capsule, Take 37.5 mg by mouth once daily., Disp: , Rfl: docosahexaenoic acid/epa (FISH OIL ORAL), Take by mouth once daily., Disp: , Rfl: , 08/02/2021 OTC PRODUCT, once daily. Leptitox : 2 tabs, Disp: , Rfl: onabotulinum toxin type A (BOTOX) 100 unit solr, every 90 days for migraines, Disp: , Rfl: , 07/16/2021 fremanezumab-vfrm (AJOVY SYRINGE SUBCUTANEO (more content not included)... Normal [facility] THERAPY NTon 08-17-2021 THERAPY NT HNO ID: [id number] Author: MEMO Wang/Ida Service: Occupational Therapy Author Type: Occupational Therapist Type: Therapy (PT/OT/Speech/Resp) Filed: 08/17/2021 1:52 PM Note Text: Occupational Therapy Evaluation SERVICE DATE: 08/17/2021 SERVICE TIME: 1240 to 1313 ROOM: [place] [address] Recommended Discharge Disposition: Subacute/SNF Recommended Discharge Disposition Comments: At this time, patient requires more assistance than is available to him for safe completion of ADLs/IADLs; Pt may be able to progress to Home DC Recommended Discharge Disposition Due to: ADL impairment resulting in caregiver dependence;Patient requires daily, facility-based rehabilitation from at least one discipline due to: Anticipated Discharge Needs: Physical Assist at Home Physical Assist at Home for: Transfers;Cleaning;Laund ry;Meals;Stairs;Safety;S elf Care;Shopping;Transporta tion Recommended Discharge Equipment: To Be Determined OT 6 Clicks Score: 17 Precautions/Activity Restrictions: Spine Current Hospital Course: s/p L5/S1 TLIF on 08/16 Reason for Hospital Admission: sx for L5/S1 spondylolisthesis Relevant Past Medical History: migraines, opioid dependence, CVA, other back surgeries Response to Therapy Interventions: Good participation in activities, On-track to achieve discharge goals, Pain, Requires additional time to complete activities Assessment Comments: Pt may be able to return to home with Home therapy if he progresses with mobility and stair climbing. Continue skilled needs due to: Functional impairment, Safety concerns Occupational Therapy Problem List: Safety Deficits;Impaired Self Care;Pain;Functional Mobility Impairment Treatment Interventions: Education;Self Care / Home Management;Functional Mobility Training Plan for next visit: Bed mobility, Chair/commode transfer training, Dressing training, IADLs/Home management, Sit to stand transfers Home Environment Patient Lives With: Self/Alone Assistance Available: None Entry To Home: Stairs;With Rail (suresh HR) Number Of Stairs Into Home: 5 Number Of Stairs To Bed/Bath: 15 Stairs to Bed/Bath with: Unilateral Rail Tub/Shower Type: tub shower with grab bar and shower chair Laundry: main floor Equipment Owned: Cane;Wheeled Walker;Wire Transfer Clerk;Grab Bars-Shower;ADL Kit;Elevated Toilet Seat;Extended tub bench Prior Functional Level: Within Functional Limits;History of Falls Prior Functional Level Comments: Pt IND w/ all using cane less than 50% of time, however it was difficult due to pain. + drives. - works. 2 falls in last year (slip on ice/dog tripped) Patient Report: understands precautions CURRENT FUNCTIONAL STATUS: Most recent performance Current Activities of Daily Living Assist Level Additional Information Feeding Set Up Grooming Set Up Bathing Upper Body Minimal Assistance Bathing Lower Body Moderate Assistance Dressing Upper Body Minimal Assistance Dressing Lower Body Maximal Assistance Toileting Moderate Assistance Instrumental Activities of Daily Living Assist Level Additional Information Meal/Beverage Prep Total Assistance Cleaning Total Assistance Laundry Total Assistance Medication Management with Strategies Independent Functional Mobility Assist Level Additional Information Rolling Supine to Sit Verbal Cues Only;Additional Information using bed rail Sit to Supine Moderate Assistance;Additional Information assist with bring legs up into bed Scooting Sit to Stand Stand By Assistance Stand to Sit Stand By Assistance Bed to Chair Toilet/Commode Shower Functional Mobility Blank paez indicate activity not attempted Learning/Educational Needs: Discharge Plan;Equipment;Functiona l Activities/Mobility;Pain Management;Precautions;S afety;Self Care Goals for Plan of Care: Patient /Caregiver Goals: Go Home Goals: Patient will demonstrate progress to optimize self-care activities, cognitive and/or coping to maximize function upon discharge. Rehab Potential: Good Patient will be discontinued from Occupational Therapy when no further skilled needs are identified in this setting. PLAN: OT Frequency: 3 times per week Plan of Care developed with: Patient TREATMENT INTERVENTIONS: Therapy Diagnosis: Reduced mobility-other;Decreased activities of daily living (ADL) Interventions Provided: Evaluation;Therapeutic Activity (94739) $ Evaluation-Low (51363) Billed Units: 1 unit Training AND education provided in: Activity adaption / compensatory strategies, Bed mobility, Adaptive equipment / DME, Positioning, Precautions/restrictions , Role of Occupational Therapy, Transfer - Sit to stand The following therapeutic skills were used: Teach-back for education, Physical assist, Cuing visual, Cuing verbal, Cues for sequencing/proper technique for activity Timed Code Treatment (minutes): 18 Skilled Treatment Time (minutes): 33 Please see discipline specific clinical documentation lu (more content not included)... [facility] THERAPY NT HNO ID: [id number] Author: Dionte Estrada, PT Service: Physical Therapy Author Type: Physical Therapist Type: Therapy (PT/OT/Speech/Resp) Filed: 08/17/2021 12:12 PM Note Text: Physical Therapy Evaluation SERVICE DATE: 08/17/2021 SERVICE TIME: 1105 to 1149 ROOM: [place] [address] Recommended Discharge Disposition: Subacute/SNF Recommended Discharge Disposition Comments: Pt currently very limited by pain and weakness requiring mod A for mobility. Pt has little to no assistance at home and must perform at 15 stairs. Due to the above circumstances pt unsafe to d/c home, however hopeful that pt if pt can progress to mod I then possible d/c home. Recommended Discharge Disposition Due to: Patient requires daily, facility-based rehabilitation from at least one discipline due to:;ADL impairment resulting in caregiver dependence;decline in functional status requiring daily skilled care;ongoing intervention of multiple therapy disciplines Anticipated Discharge Needs: Physical Assist at Home Physical Assist at Home for: Cleaning;Laundry;Meals;S tairs;Shopping;Transport ation Recommended Discharge Equipment: To Be Determined PT 6 Clicks Score: 14 Precautions/Activity Restrictions: Spine Current Hospital Course: s/p L5/S1 TLIF on 08/16 Reason for Hospital Admission: sx for L5/S1 spondylolisthesis Relevant Past Medical History: migraines, opioid dependence, CVA, other back surgeries Response to Therapy Interventions: Good participation in activities, Low activity tolerance, Pain, Requires additional time to complete activities Continue skilled needs due to: Functional mobility/skill impairments, Safety concerns Physical Therapy Problem List: Pain;Functional Mobility Impairment;Decreased Strength;Balance Impaired;Sensory Deficit;Decreased Activity Tolerance Treatment Interventions: Education;Strengthening; Functional Mobility Training;Balance Training;Pain Management Plan for next visit: Bed mobility, Gait training, Sit to Stand Transfers, Stairs training Home Environment Patient Lives With: Self/Alone Assistance Available: None Entry To Home: Stairs;With Rail (suresh HR) Number Of Stairs Into Home: 5 Number Of Stairs To Bed/Bath: 15 Stairs to Bed/Bath with: Unilateral Rail Tub/Shower Type: tub shower with grab bar and shower chair Laundry: main floor Equipment Owned: Cane;Wheeled Walker;Wire Transfer Clerk;Grab Bars-Shower;Shower Chair Prior Functional Level: Within Functional Limits;History of Falls Prior Functional Level Comments: Pt IND w/ all using cane less than 50% of time, however it was difficult due to pain. + drives. - works. 2 falls in last year (slip on ice/dog tripped) Patient Report: Pt agreeable to PT CURRENT FUNCTIONAL STATUS: Most recent performance Current Functional Mobility Assist Level Additional Information Rolling Supine to Sit Moderate Assistance;Additional Information VC for log roll Sit to Supine Scooting Supervision Sit to Stand Moderate Assistance;Minimal Assistance;Additional Information mod A from bed/min A from chair with armrests Stand to Sit Minimal Assistance Bed to Chair Moderate Assistance Bed To Chair Transfer Type: Stepping Bed To Chair Transfer Equipment: Wheeled Walker Toilet/Commode Gait Minimal Assistance;Additional Information Gait Device: Wheeled Walker Gait Distance (feet): 50 ft x 3 Frequent standing rest breaks due to pain and fatigue. No overt LOB, however unsteady throughout. Stairs Minimal Assistance;Additional Information Stairs Device: Rail (suresh) Number of Stairs: 1 Pt relied heavily on B HR Curb Step Car Transfer Blank paez indicate activity not attempted General Deviations/Observations: Antalgic gait;Michaela decreased;Flexed trunk posture;Non-functional gait speed;Step length decreased;UE weight bearing on assistive device excessive;Improper distancing from assistive device Light Touch/Deep Pressure Deficit: diminished in BLE (LLE worse than R), however still able to feel light touch. Range of Motion: WFL Except;ROM Limitation Comments ROM Limitation Comments: limited some by pain and body habitus Strength: WFL Except;Strength Limitation Comments Strength Limitation Comments: BLE grossly at least 4/5 Exercise Ankle Pumps (number of reps): 10 Quad Sets (number of reps): 10 Glut Sets (number of reps): 10 Heel Slides (number of reps): 10 LAQ (number of reps): 10 Balance: Static Sitting;Static Standing;Dynamic Standing Static Sitting Balance: Normal Patient able to maintain steady balance without handhold support Static Standing Balance: Good Patient able to maintain balance without handhold support, limited postural sway Dynamic Standing Balance: Fair Patient accepts minimal challenge, able to maintain balance while turning head/trunk -HLM: 7: Walk 25 feet or more Learning/Educational Needs: Discharge Plan;Functional Activities/Mobility;Pain Management;Plan of Care;Precautions;Rehabil (more content not included)... [facility] ANES POSTPROC EVALon 022 ANES POSTPROC EVAL HNO ID: [id number] Author: Naeem Banks MD Service: Anesthesiology Author Type: Anesthesiologist Type: Anesthesia Postprocedure Evaluation Filed: 08/16/2021 4:48 PM Note Text: POST ANESTHESIA EVALUATION NOTE : 1960 Procedure Summary Date: 08/16/21 Room / Location: OR / OR Anesthesia Start: 1046 Anesthesia Stop: 1545 Procedures: TLIF DECOMPRESSION LAMINECTOMY INTERBODY FUSION LUMBAR POSTERIOR (PLIF) LEVEL 1 (N/A Spine Lumbar) POSTERIOR NON-SEGMENTAL INSTRUMENTATION FOLLOWING LUMBAR FUSION 1 LEVEL PDFI (N/A Spine Lumbar) INSERTION INTERBODY BIOMED DEVICE(S) W/ANT INSTR ANCHORING TO DISC SPACE W/INTERBODY FUSION,EA INTERSPACE (N/A Spine Lumbar) Diagnosis: Spondylolisthesis of lumbar region (Spondylolisthesis of lumbar region [M43.16]) Surgeons: Loyda Steele MD Responsible Provider: Naeem Banks MD Anesthesia Type: general ASA Status: 3 Anesthesia Type: general Airway Type: ETT Last Vitals Vitals Value Taken Time BP 119/89 08/16/21 1645 Temp 37.6 ?C (99.7 ?F) 08/16/21 1541 Pulse 92 08/16/21 1647 Resp 16 08/16/21 1630 SpO2 92 % 08/16/21 1647 Vitals shown include unvalidated device data. Post Anesthesia Patient Status Patient Evaluation: PACU. PACU/ICU Patient Condition: stable. Anticipated Disposition: inpatient floor planned admission. Neurological Status: aware and responsive. Pulmonary Status: breathing comfortably on room air Airway Control: returned to baseline unsupported. Cardiovascular Status: stable. Pain Management: clinically adequate - multimodal analgesia pain management approach Postoperative Hydration: acceptable. Intraoperative Events: no significant anesthesia events Recommendation: continue current plan of care and further care per PACU/ICU/floor team. Anesthesia Observations No Documentation SIGNATURE: Naeem Banks MD PATIENT NAME: Mary Jimenez DATE: August 16, 2021 TIME: 4:48 PM CSN: [id number] [facility] ANES PRE-OPon 08-16-2021 ANES PRE-OP HNO ID: [id number] Author: David Og MD Service: Anesthesiology Author Type: Anesthesiologist Type: Anesthesia Preprocedure Evaluation Filed: 08/16/2021 9:22 AM Note Text: ANESTHESIOLOGY DAY OF SURGERY NOTE : 1960 Procedure Information Date/Time: 08/16/21 0945 Procedures: TLIF DECOMPRESSION LAMINECTOMY INTERBODY FUSION LUMBAR POSTERIOR (PLIF) LEVEL 1 (N/A Spine Lumbar) POSTERIOR NON-SEGMENTAL INSTRUMENTATION FOLLOWING LUMBAR FUSION 1 LEVEL PDFI (N/A Spine Lumbar) INSERTION INTERBODY BIOMED DEVICE(S) W/ANT INSTR ANCHORING TO DISC SPACE W/INTERBODY FUSION,EA INTERSPACE (N/A Spine Lumbar) - L5S1 TLIF Location: OR / DENY OR Surgeons: Loyda Steele MD Estimated body mass index is 43.67 kg/m? as calculated from the following: Height as of 08/07/21: 176.5 cm (5' 9.5 ). Weight as of 08/07/21: 136.1 kg (300 lb). Most recent hematocrit and potassium results: Hematocrit 49.9 08/07/2021 Potassium 5.1 08/07/2021 Relevant Problems CARDIO (+) Intractable chronic migraine without aura (+) Primary hypertension NEURO-PSYCH (+) Cerebrovascular accident (CVA) due to thrombosis (HCC) (+) Chronic daily headache (+) Intractable chronic migraine without aura (+) Medication overuse headache Other (+) Sacroiliitis (HCC) I - PHYSICAL EVALUATION AIRWAY Patient intubated: No. Tracheostomy tube not present Mallampati: III. TM distance: >3 FB. Neck ROM: full. Mouth opening: adequate. Short neck: no. Thick neck: yes DENTAL Normal dental observations. Dental findings: teeth intact. Additional exam findings: yes. CARDIOVASCULAR Normal cardiovascular observations. Rhythm: regular Rate: normal PULMONARY Normal pulmonary observations. Breath sounds clear to auscultation. II - ANESTHESIA PLAN ASA Score: 3 Anesthetic Plan: general Airway type: ETT The patient is not a current smoker. NPO Status: adequate Monitoring plan: Standard ASA. Postoperative analgesic plan: multimodal analgesia. Anesthetic Risks, Benefits, Alternatives, Personnel Discussed. Consent obtained from: patient.Patient / Surrogate agrees to blood products: Yes Significant changes in the patient condition since the History and Physical, not otherwise documented in primary service progress note: no. Potential Anesthesia issues that may suggest increased risk of complications or contraindication to planned procedure: none and potential difficult intubation. Vitals Value Taken Time BP 141/88 08/16/21 07 Pulse 87 08/16/21707 Resp 18 08/16/21707 Temp 35.7 ?C (96.3 ?F) 08/16/21707 SpO2 95 % 08/16/21707 Facility-Administered Medications as of 08/16/2021 Medication Dose Route Frequency - lactated ringers iv infusion 75 mL/hr INTRAVENOUS CONTINUOUS - vancomycin 1.5 g in D5W 250 mL (VANCOCIN) 1.5 g INTRAVENOUS ONCE Outpatient Medications as of 08/16/2021 Medication Sig - aspirin 325 mg tablet Take 325 mg by mouth as needed. - prasterone, dhea, (DHEA) 50 mg tab Take by mouth once daily. - nortriptyline (PAMELOR) 50 mg capsule Take 50 mg by mouth daily at bedtime. - diclofenac sodium (VOLTAREN) 1 % topical gel Apply to affected area three times daily. - finasteride (PROSCAR) 5 mg tablet Take 5 mg by mouth once daily. - HYDROcodone-acetaminophe n (NORCO) 5-325 mg per tablet three times daily. - doxepin capsule 10 mg Take 10 mg by mouth daily at bedtime. Takes 2 tabs at bedtime - clopidogrel (PLAVIX) 75 mg tablet Take 1 tablet by mouth once daily. - atorvastatin (LIPITOR) 80 mg tablet Take 80 mg by mouth once daily. - OMEPRAZOLE (PRILOSEC ORAL) Take 40 mg by mouth once daily. - DULoxetine (CYMBALTA) 30 mg capsule Take 1 capsule by mouth once daily. Take with 60 mg for 90 mg total dose. - baclofen (LIORESAL) 20 mg tablet Take 20 mg by mouth once daily. - furosemide (LASIX) 40 mg tablet Take 40 mg by mouth once daily. - doxazosin (CARDURA) 4 mg tablet Take 4 mg by mouth once daily. - metoprolol succinate XL, long acting, (TOPROL XL) 50 mg 24 hr tablet Take 50 mg by mouth once daily. - valACYclovir (VALTREX) 500 mg tablet Take 500 mg by mouth as needed. - telmisartan (MICARDIS) 80 mg tablet Take 80 mg by mouth once daily. - fluticasone (FLONASE) 50 mcg/actuation nasal spray Use 2 Sprays in each nostril twice daily. - Ascorbic Acid (VITAMIN C) 500 mg chew Take 500 mg by mouth once daily. - rizatriptan (MAXALT) 10 mg tablet Take 10 mg by mouth as needed. 3 times daily as needed - sildenafil (VIAGRA) 50 mg tablet Take 50 mg by mouth as needed. - Phentermine HCl 37.5 mg capsule Take 37.5 mg by mouth once daily. - docosahexaenoic acid/epa (FISH OIL ORAL) Take by mouth once daily. - OTC PRODUCT once daily. Leptitox : 2 tabs - onabotulinum toxin type A (BOTOX) 100 unit solr every 90 days for migraines - fremanezumab-vfrm (AJOVY SYRINGE SUBCUTANEOUS) Inject 250 mg/mL subcutaneously. every 28 days for migraines - vitamin b complex tab Take 1 tablet by mout (more content not included)... [facility] BRIEF OP NOTon 08-16-2021 BRIEF OP NOT HNO ID: [id number] Author: Loyda Steele MD Service: Neurosurgery Author Type: Physician Type: Brief Op Note Filed: 08/16/2021 3:28 PM Note Text: BRIEF OPERATIVE / PROCEDURE NOTE LOG ID: [id number] SURGERY/PROCEDURE DATE: 08/16/2021 INCISION/PROCEDURE START TIME: 11:17 AM INCISION CLOSE/PROCEDURE END TIME: 3:26 PM SURGEON(S)/PROCEDURALIST (S) AND CIGARETTE MAKING MACHINE CATCHER(S): Surgeon(s) and Role: * Loyda Steele MD - Primary Physician Stamp Analyst: Christine Gutierrez PA-C SURGERY/PROCEDURE(S): L5/S1 TLIF ANESTHESIA: General FINDINGS: Appropriate decompression and hardware placement ESTIMATED BLOOD LOSS: 1000 mls SPECIMENS: None COMPLICATIONS: None DRAINS: Subfascial drain PRE-OP/PRE-PROCEDURE DIAGNOSIS: L5/S1 spondylolisthesis POST-OP/POST-PROCEDURE DIAGNOSIS: L5/S1 spondylolisthesis SIGNATURE: Loyda Steele MD PATIENT NAME: Mary Jimenez DATE: August 16, 2021 TIME: 3:24 PM [facility] NURSING PROGon 08-16-2021 NURSING PROG O ID: [id number] Author: Lucien Mehta RN Service: Nursing Author Type: Registered Nurse Type: Nursing Progress Note Filed: 08/16/2021 4:57 PM Note Text: Nursing Progress Note Patient Name: Mary Jimenez Patient Location: [address]/[id number] Transfer Note: Patient transferred into room/unit 517-2 in stable condition. Actions taken: Patient and family oriented to 5D unit policies and procedures. Educated on falls risks, falls precautions, and use of call crouch prior to getting OOB. Patient resting in bed. Call light within reach. All needs met at this time. This note was completed by: Lucien Mehta [facility] NURSING PROG HNO ID: [id number] Author: Merced Pickett RN Service: ? Author Type: Registered Nurse Type: Nursing Progress Note Filed: 08/16/2021 10:47 AM Note Text: Patient transported to the OR via cart, accompanied by LB/IR. Level of consciousness: Alert and Oriented x 3 Emotional Status:Calm Sensory Impairments: No Language Barrier: No Mobility Impairments: No Addressed any patient concerns regarding consents, OR environment, and anesthetics. [facility] NURSING PROG HNO ID: [id number] Author: Merced Pickett RN Service: ? Author Type: Registered Nurse Type: Nursing Progress Note Filed: 08/16/2021 10:46 AM Note Text: Body temperature maintained by maintaining OR room temperature between 68-72 degrees F, providing patient with warm bath blankets, limiting areas of exposure and providing warm irrigation fluid. [facility] SURGICAL PATHOLOGYon 022 SURGICAL PATHOLOGY Specimen originated from [facility] Specimen #: [id number] Submitting Physician: LOYDA STEELE MD __ FINAL DIAGNOSIS L5-S1 - Spinal hardware (gross examination only). LEISA/Radha 08/19/2021 Caitlyn Cartagena M.D. (Electronic Signature) SPECIMEN SUBMITTED A: OLD HARDWARE CLINICAL DATA SPONDYLOLISTHESIS OF LUMBAR REGION; L5-S1 TLIF; ADJACENT SEGMENT DISEASE GROSS DESCRIPTION A. Received fresh designated old hardware is a cylindrical screw that measures 6.5 cm in length and contains the inscription [id number] . Also within the container are two curved rods that measure 4 cm in length. Lastly within the container, are four metallic discs each measuring 1 cm in diameter. There is no tissue present. The specimen is reviewed by Dr. Cartagena. Radha 08/19/2021 Gross examination performed at [facility], [address] [place] [address] Date of Report: 08/19/2021 Date of Procedure: 08/16/2021 Date of Receipt: 08/16/2021 Submitted by: LOYDA STEELE MD Location: [facility] Diagnostic interpretation performed at [facility], [address] [place] [address]. CLIA Number: [id number] [facility] XR LUMBAR 2V AP/LATon 2021 XR LUMBAR 2V AP/LAT * * *Final Report* * * DATE OF EXAM: Aug 16 2021 2:34PM ELVER 5229 - XR LUMBAR 2V AP/LAT / PROCEDURE REASON: Spondylolisthesis of lumbar region * * * * Physician Interpretation * * * * Intraoperative lumbar spine radiographs HISTORY: 61 years old Clinical information: Spondylolisthesis of lumbar region Spondylolisthesis of lumbar region TECHNIQUE: Images: XR LUMBAR 2V AP/LAT Comparison: August 16, 2021. RESULT: Findings: And pedicle screws at the L4, L5, and S1 levels. Combined anterior and interbody graft at the L4-5 level and interbody graft in the L5-S1 intervertebral disc space. No fracture. IMPRESSION: As above. Senior Informatica Developer: [facility] Transcribe Date/Time: Aug 16 2021 2:54P Dictated by : DIONTE MANNING MD This examination was interpreted and the report reviewed and electronically signed by: DIONTE MANNING MD on Aug 16 2021 2:55PM EST [id number] [facility] XR LUMBAR SPECIFY 1Von 08-16 XR LUMBAR SPECIFY 1V * * *Final Report* * * DATE OF EXAM: Aug 16 2021 2:17PM ELVER 5234 - XR LUMBAR SPECIFY 1V / PROCEDURE REASON: Spondylolisthesis of lumbar region * * * * Physician Interpretation * * * * EXAMINATION: XR LUMBAR SPECIFY 1V, XR LUMBAR SPECIFY 1V, XR LUMBAR SPECIFY 1V CLINICAL INFORMATION: 61 years old Male with Spondylolisthesis of lumbar region TECHNIQUE: Single lateral intraoperative images of the lumbar spine timed 1:59 PM, 2:09 PM, 2:14 PM labeled #1, #2, and #3 respectively. COMPARISON: Lumbar spine radiographs 05/29/2021 RESULT: Counting reference: Lumbosacral junction. L4-L5 is considered the level of iliac crest. Single lateral images are obtained intraoperatively for surgical planning. Intraoperative image #1: Prior L4-L5 discectomy and interbody fusion with surgical graft and anterior screws at L4 and L5. Prior L4-S1 posterior decompression and instrumented fusion with transpedicular screws, rods and interbody device at L5-S1. Ongoing postsurgical changes of revision L4-S1 posterior instrumented fusion. Surgical retractors in the dorsal lumbar soft tissues. Stimulator device also noted in the dorsal lumbar soft tissues. Intraoperative image #2: Interval removal of interconnecting rods and S1 screws. Intraoperative image #3: No significant change. IMPRESSION: Intraoperative examination for surgical planning and documentation. Senior Informatica Developer: [facility] Transcribe Date/Time: Aug 16 2021 3:12P Dictated by : VEDA KIRKLAND DO This examination was interpreted and the report reviewed and electronically signed by: VEDA KIRKLAND DO on Aug 16 2021 3:26PM EST [id number] [facility] XR LUMBAR SPECIFY 1V * * *Final Report* * * DATE OF EXAM: Aug 16 2021 2:11PM ELVER 5234 - XR LUMBAR SPECIFY 1V / PROCEDURE REASON: Spondylolisthesis of lumbar region * * * * Physician Interpretation * * * * EXAMINATION: XR LUMBAR SPECIFY 1V, XR LUMBAR SPECIFY 1V, XR LUMBAR SPECIFY 1V CLINICAL INFORMATION: 61 years old Male with Spondylolisthesis of lumbar region TECHNIQUE: Single lateral intraoperative images of the lumbar spine timed 1:59 PM, 2:09 PM, 2:14 PM labeled #1, #2, and #3 respectively. COMPARISON: Lumbar spine radiographs 05/29/2021 RESULT: Counting reference: Lumbosacral junction. L4-L5 is considered the level of iliac crest. Single lateral images are obtained intraoperatively for surgical planning. Intraoperative image #1: Prior L4-L5 discectomy and interbody fusion with surgical graft and anterior screws at L4 and L5. Prior L4-S1 posterior decompression and instrumented fusion with transpedicular screws, rods and interbody device at L5-S1. Ongoing postsurgical changes of revision L4-S1 posterior instrumented fusion. Surgical retractors in the dorsal lumbar soft tissues. Stimulator device also noted in the dorsal lumbar soft tissues. Intraoperative image #2: Interval removal of interconnecting rods and S1 screws. Intraoperative image #3: No significant change. IMPRESSION: Intraoperative examination for surgical planning and documentation. Senior Informatica Developer: [employer] Transcribe Date/Time: Aug 16 2021 3:12P Dictated by : VEDA KIRKLAND DO This examination was interpreted and the report reviewed and electronically signed by: VEDA KIRKLAND DO on Aug 16 2021 3:26PM EST [id number] [facility] XR LUMBAR SPECIFY 1V * * *Final Report* * * DATE OF EXAM: Aug 16 2021 2:06PM ELVER 5234 - XR LUMBAR SPECIFY 1V / PROCEDURE REASON: Spondylolisthesis of lumbar region * * * * Physician Interpretation * * * * EXAMINATION: XR LUMBAR SPECIFY 1V, XR LUMBAR SPECIFY 1V, XR LUMBAR SPECIFY 1V CLINICAL INFORMATION: 61 years old Male with Spondylolisthesis of lumbar region TECHNIQUE: Single lateral intraoperative images of the lumbar spine timed 1:59 PM, 2:09 PM, 2:14 PM labeled #1, #2, and #3 respectively. COMPARISON: Lumbar spine radiographs 05/29/2021 RESULT: Counting reference: Lumbosacral junction. L4-L5 is considered the level of iliac crest. Single lateral images are obtained intraoperatively for surgical planning. Intraoperative image #1: Prior L4-L5 discectomy and interbody fusion with surgical graft and anterior screws at L4 and L5. Prior L4-S1 posterior decompression and instrumented fusion with transpedicular screws, rods and interbody device at L5-S1. Ongoing postsurgical changes of revision L4-S1 posterior instrumented fusion. Surgical retractors in the dorsal lumbar soft tissues. Stimulator device also noted in the dorsal lumbar soft tissues. Intraoperative image #2: Interval removal of interconnecting rods and S1 screws. Intraoperative image #3: No significant change. IMPRESSION: Intraoperative examination for surgical planning and documentation. Senior Informatica Developer: P[employer]ustín Transcribe Date/Time: Aug 16 2021 3:12P Dictated by : VEDA KIRKLAND DO This examination was interpreted and the report reviewed and electronically signed by: VEDA KIRKLAND DO on Aug 16 2021 3:26PM EST [id number] [facility] 08-14-2021 [facility] Telephone (YOSEPH) -------- MARY JIMENEZ ([id number]) 1960 Date Time Provider Department 08/14/21 ELEN HOANG During your visit today, we recorded the following information about you: Elen Hoang RN 08/14/2021 9:39 AM Addendum Allergies As of Date: 08/14/2021 Noted Allergy Reaction PENICILLINS 06/07/2014 10 - Anaphylaxis LATEX 09/04/2016 2 - Rash Date Reviewed: 08/07/2021 Reviewed by: Amanda Moyet, PAVER OPERATOR - Fully Assessed Reason for Visit: Pre-Op Update [997] Cmt: Plavix instructions Prescriptions as of 08/14/2021 - pregabalin (LYRICA) 100 mg capsule Take 1 capsule by mouth three times daily. - mupirocin (BACTROBAN) 2 % ointment Apply 1/2 Bactroban with a cotton swab to each nostril in the morning and at bedtime starting 5 days prior to surgery date. - Ascorbic Acid (VITAMIN C) 500 mg chew Take 500 mg by mouth once daily. - rizatriptan (MAXALT) 10 mg tablet Take 10 mg by mouth as needed. 3 times daily as needed - aspirin 325 mg tablet Take 325 mg by mouth as needed. - sildenafil (VIAGRA) 50 mg tablet Take 50 mg by mouth as needed. - Phentermine HCl 37.5 mg capsule Take 37.5 mg by mouth once daily. - docosahexaenoic acid/epa (FISH OIL ORAL) Take by mouth once daily. - prasterone, dhea, (DHEA) 50 mg tab Take by mouth once daily. - OTC PRODUCT once daily. Leptitox : 2 tabs - onabotulinum toxin type A (BOTOX) 100 unit solr every 90 days for migraines - fremanezumab-vfrm (AJOVY SYRINGE SUBCUTANEOUS) Inject 250 mg/mL subcutaneously. every 28 days for migraines - nortriptyline (PAMELOR) 50 mg capsule Take 50 mg by mouth daily at bedtime. - vitamin b complex tab Take 1 tablet by mouth once daily. 5000 mcg - cholecalciferol, vitamin D3, (VITAMIN D3 ORAL) Take 125 mcg by mouth once daily. - ubidecarenone (ULTRA COQ10 ORAL) Take 50 mg by mouth once daily. - OTC NUTRITIONAL SUPPLEMENT once daily. Tumeric 500 mg x2 - OTC NUTRITIONAL SUPPLEMENT 500 mg once daily. Curcumin - OTC PRODUCT 350 mg once daily. Milk thistle - OTC PRODUCT 315 mg once daily. Green Tea - CHROMIUM PICOLINATE ORAL Take 800 mcg by mouth once daily. - selenium 200 mcg tablet Take 1 tablet by mouth once daily. - Berb Sampson/herbal complex no.18 (BERBERINE-HERBAL COMB NO.18 ORAL) Take 1,000 mg by mouth twice daily. - MAGNESIUM ORAL Take 400 mg by mouth once daily. - diclofenac sodium (VOLTAREN) 1 % topical gel Apply to affected area three times daily. - finasteride (PROSCAR) 5 mg tablet Take 5 mg by mouth once daily. - HYDROcodone-acetaminophe n (NORCO) 5-325 mg per tablet three times daily. - Zolpidem (AMBIEN CR) 12.5 mg CR tablet daily at bedtime. - CALCIUM CARBONATE/VITAMIN D3 (CALCIUM 600 + D ORAL) Take by mouth once daily. - CALCITONIN,SALMON,SYNTHE TIC (CALCITONIN, SALMON, NASAL) Use in the nose once daily. - amitriptyline (ELAVIL) 25 mg tablet once daily. - LACTOBACILLUS ACIDOPHILUS (PROBIOTIC ACIDOPHILUS ORAL) Take by mouth once daily. - TESTOSTERONE INTRAMUSC. Inject 300 mg intramuscularly every other week. - doxepin capsule 10 mg Take 10 mg by mouth daily at bedtime. Takes 2 tabs at bedtime - dicyclomine (BENTYL) 10 mg capsule Take 20 mg by mouth as needed. 4 times daily as needed - BIOTIN ORAL Take 10 mcg by mouth once daily. - MULTIVITS-MINERALS/FA/LY COPENE (ONE-A-DAY MEN'S ORAL) Take by mouth. - eletriptan (RELPAX) 40 mg tablet Take 40 mg by mouth as needed. may repeat in 2 hours if necessary - promethazine (PHENERGAN) 25 mg tablet Take 25 mg by mouth as needed. - clopidogrel (PLAVIX) 75 mg tablet Take 1 tablet by mouth once daily. - atorvastatin (LIPITOR) 80 mg tablet Take 80 mg by mouth once daily. - OMEPRAZOLE (PRILOSEC ORAL) Take 40 mg by mouth once daily. - DULoxetine (CYMBALTA) 30 mg capsule Take 1 capsule by mouth once daily. Take with 60 mg for 90 mg total dose. - baclofen (LIORESAL) 20 mg tablet Take 20 mg by mouth once daily. - KLOR-CON M20 20 mEq tablet Take 20 mEq by mouth once daily. - furosemide (LASIX) 40 mg tablet Take 40 mg by mouth once daily. - doxazosin (CARDURA) 4 mg tablet Take 4 mg by mouth once daily. - metoprolol succinate XL, long acting, (TOPROL XL) 50 mg 24 hr tablet Take 50 mg by mouth once daily. - valACYclovir (VALTREX) 500 mg tablet Take 500 mg by mouth as needed. - telmisartan (MICARDIS) 80 mg tablet Take 80 mg by mouth once daily. - cyanocobalamin (VITAMIN B-12) 1,000 mcg tab Take 1,000 mcg by mouth once daily. - fluticasone (FLONASE) 50 mcg/actuation nasal spray Use 2 Sprays in each nostril twice daily. Problem List As Of Date 08/14/2021 Noted Resolved Headache(784.0) [R51] 07/18/2014 Adjustment disorder with anxious mood [F43.22] 07/18/2014 Chronic daily headache [R51.9] 07/18/2014 Intractable chronic migraine without aura [G43.*07/18/2014 Chronic back pain [M54.9, G89.29] 0 (more content not included)... Normal [facility] PreOp/PreProc COVIDon 2021 SARS-CoV-2 (COVID-19) RNA LATOYA+probe Ql (Unsp spec) UPPER RESPIRATORY TRACT SWAB Normal [facility] Comment on above: Performed By: #### P OCOVD ####[place] [id number] [place], [place] [phone] SARS-CoV-2 (COVID-19) RNA LATOYA+probe Ql (Unsp spec) Negative for COVID19 (SARS CoV2) by RT-PCR or equivalent method. Normal Negative for COVID19 (SARS CoV2) by RT-PCR or equivalent method. [facility] Comment on above: Result Comment: This test was developed and its performance characteristics determined by [facility]'s [facility] [place]. This test has been authorized by FDA under an Emergency Use Authorization (EUA). This test has been validated in accordance with the FDA's Guidance Document Policy for Diagnostics Testing in Laboratories Certified to Perform High Complexity Testing under CLIA prior to Emergency use Authorization for Coronavirus Disease 2019 during the Public Health Emergency issued on August 27, 2019. Test performed by [facility], [facility] [place], [address], [place] [address]. Performed By: #### P OCOVD ####[facility] [address] [place], [place] [phone] [facility]) -------- MARY JIMENEZ ([id number]) 1960 M Date Time Provider Department 08/12/21 LOYDA STEELE [facility] During your visit today, we recorded the following information about you: CHITRA Beverly 08/12/2021 2:35 PM Signed Patient would like to know approximately how long his surgery will take on 08/16/2021. Please call patient at . Greta Nunez RN 08/12/2021 2:43 PM Signed Spoke with patient and answered question. Allergies As of Date: 08/12/2021 Noted Allergy Reaction PENICILLINS 06/07/2014 10 - Anaphylaxis LATEX 09/04/2016 2 - Rash Date Reviewed: 08/07/2021 Reviewed by: Amanda Kumar LPN - Fully Assessed Reason for Visit: Patient Question [8144] Prescriptions as of 08/12/2021 - pregabalin (LYRICA) 100 mg capsule Take 1 capsule by mouth three times daily. - mupirocin (BACTROBAN) 2 % ointment Apply 1/2 Bactroban with a cotton swab to each nostril in the morning and at bedtime starting 5 days prior to surgery date. - Ascorbic Acid (VITAMIN C) 500 mg chew Take 500 mg by mouth once daily. - rizatriptan (MAXALT) 10 mg tablet Take 10 mg by mouth as needed. 3 times daily as needed - aspirin 325 mg tablet Take 325 mg by mouth as needed. - sildenafil (VIAGRA) 50 mg tablet Take 50 mg by mouth as needed. - Phentermine HCl 37.5 mg capsule Take 37.5 mg by mouth once daily. - docosahexaenoic acid/epa (FISH OIL ORAL) Take by mouth once daily. - prasterone, dhea, (DHEA) 50 mg tab Take by mouth once daily. - OTC PRODUCT once daily. Leptitox : 2 tabs - onabotulinum toxin type A (BOTOX) 100 unit solr every 90 days for migraines - fremanezumab-vfrm (AJOVY SYRINGE SUBCUTANEOUS) Inject 250 mg/mL subcutaneously. every 28 days for migraines - nortriptyline (PAMELOR) 50 mg capsule Take 50 mg by mouth daily at bedtime. - vitamin b complex tab Take 1 tablet by mouth once daily. 5000 mcg - cholecalciferol, vitamin D3, (VITAMIN D3 ORAL) Take 125 mcg by mouth once daily. - ubidecarenone (ULTRA COQ10 ORAL) Take 50 mg by mouth once daily. - OTC NUTRITIONAL SUPPLEMENT once daily. Tumeric 500 mg x2 - OTC NUTRITIONAL SUPPLEMENT 500 mg once daily. Curcumin - OTC PRODUCT 350 mg once daily. Milk thistle - OTC PRODUCT 315 mg once daily. Green Tea - CHROMIUM PICOLINATE ORAL Take 800 mcg by mouth once daily. - selenium 200 mcg tablet Take 1 tablet by mouth once daily. - Berb Sampson/herbal complex no.18 (BERBERINE-HERBAL COMB NO.18 ORAL) Take 1,000 mg by mouth twice daily. - MAGNESIUM ORAL Take 400 mg by mouth once daily. - diclofenac sodium (VOLTAREN) 1 % topical gel Apply to affected area three times daily. - finasteride (PROSCAR) 5 mg tablet Take 5 mg by mouth once daily. - HYDROcodone-acetaminophe n (NORCO) 5-325 mg per tablet three times daily. - Zolpidem (AMBIEN CR) 12.5 mg CR tablet daily at bedtime. - CALCIUM CARBONATE/VITAMIN D3 (CALCIUM 600 + D ORAL) Take by mouth once daily. - CALCITONIN,SALMON,SYNTHE TIC (CALCITONIN, SALMON, NASAL) Use in the nose once daily. - amitriptyline (ELAVIL) 25 mg tablet once daily. - LACTOBACILLUS ACIDOPHILUS (PROBIOTIC ACIDOPHILUS ORAL) Take by mouth once daily. - TESTOSTERONE INTRAMUSC. Inject 300 mg intramuscularly every other week. - doxepin capsule 10 mg Take 10 mg by mouth daily at bedtime. Takes 2 tabs at bedtime - dicyclomine (BENTYL) 10 mg capsule Take 20 mg by mouth as needed. 4 times daily as needed - BIOTIN ORAL Take 10 mcg by mouth once daily. - MULTIVITS-MINERALS/FA/LY COPENE (ONE-A-DAY MEN'S ORAL) Take by mouth. - eletriptan (RELPAX) 40 mg tablet Take 40 mg by mouth as needed. may repeat in 2 hours if necessary - promethazine (PHENERGAN) 25 mg tablet Take 25 mg by mouth as needed. - clopidogrel (PLAVIX) 75 mg tablet Take 1 tablet by mouth once daily. - atorvastatin (LIPITOR) 80 mg tablet Take 80 mg by mouth once daily. - OMEPRAZOLE (PRILOSEC ORAL) Take 40 mg by mouth once daily. - DULoxetine (CYMBALTA) 30 mg capsule Take 1 capsule by mouth once daily. Take with 60 mg for 90 mg total dose. - baclofen (LIORESAL) 20 mg tablet Take 20 mg by mouth once daily. - KLOR-CON M20 20 mEq tablet Take 20 mEq by mouth once daily. - furosemide (LASIX) 40 mg tablet Take 40 mg by mouth once daily. - doxazosin (CARDURA) 4 mg tablet Take 4 mg by mouth once daily. - metoprolol succinate XL, long acting, (TOPROL XL) 50 mg 24 hr tablet Take 50 mg by mouth once daily. - valACYclovir (VALTREX) 500 mg tablet Take 500 mg by mouth as needed. - telmisartan (MICARDIS) 80 mg tablet Take 80 mg by mouth once daily. - cyanocobalamin (VITAMIN B-12) 1,000 mcg tab Take 1,000 mcg by mouth once daily. - fluticasone (FLONASE) 50 mcg/actuation nasal spray Use 2 Sprays in each nostril twice daily. Problem List As Of Date 08/12/2021 Noted Resolved Headache(784.0) [R51] 07/18/2014 Adjustment di (more content not included)... Normal [facility] CBC and Differentialon 08-07 Abs Baso 0.04 k/uL Normal <0.11 [facility] Comment on above: Performed By: #### C BCDIF, CMP ####[facility] [address] [place], [place] [phone] Abs Camas 0.75 k/uL Normal <0.87 [facility] Comment on above: Performed By: #### C BCDIF, CMP ####[facility], [place] [phone] Abs Neut 5.02 k/uL Normal 1.45-7.50 [facility] Comment on above: Performed By: #### C BCDIF, CMP ####[facility] [phone] Absolute nRBC <0.01 Normal <0.01 [facility] Comment on above: Performed By: #### C BCDIF, CMP ####[place] [address] [phone] Basophils/100 WBC (Bld) 0.6 % Normal [facility] Comment on above: Performed By: #### C BCDIF, CMP ####[place] [address] [phone] DTYPE Auto Diff Normal [facility] Comment on above: Performed By: #### C BCDIF, CMP ####[place] [address] [phone] Eosinophils (Bld) [#/Vol] 0.21 10*3/uL Normal <0.46 [facility] Comment on above: Performed By: #### C BCDIF, CMP ####[place] [address] [phone] Eosinophils/100 WBC (Bld) 2.9 % Normal [facility] Comment on above: Performed By: #### C BCDIF, CMP ####[facility] [phone] Erythrocyte distribution width (RBC) [Ratio] 12.6 % Normal 11.5-15.0 [facility] Comment on above: Performed By: #### C BCDIF, CMP ####[place] [address]levelAsh[address] [place] [phone] Hematocrit (Bld) [Volume fraction] 49.9 % Normal 39.0-51.0 [facility] Comment on above: Performed By: #### C BCDIF, CMP ####[place] [address] [address], [place] [phone] Hemoglobin (Bld) [Mass/Vol] 16.4 g/dL Normal 13.0-17.0 [facility] Comment on above: Performed By: #### C BCDIF, CMP ####[place] [address] [phone] Lymphocytes (Bld) [#/Vol] 1.21 10*3/uL Normal 1.00-4.00 [facility] Comment on above: Performed By: #### C BCDIF, CMP ####[place] [address] [phone] Lymphocytes/100 WBC (Bld) 16.7 % Normal [facility] Comment on above: Performed By: #### C BCDIF, CMP ####[place] [address] [phone] MCH 31.8 pG Normal 26.0-34.0 [facility] Comment on above: Performed By: #### C BCDIF, CMP ####[place] [address], [place] [phone] MCHC (RBC) [Mass/Vol] 32.9 g/dL Normal 30.5-36.0 [facility] Comment on above: Performed By: #### C BCDIF, CMP ####[place] [address]Sp[address], [place] [phone] MCV (RBC) [Entitic vol] 96.9 fL Normal 80.0-100.0 [facility] Comment on above: Performed By: #### C BCDIF, CMP ####[place] [address] [phone] Monocytes/100 WBC (Bld) 10.3 % Normal [facility] Comment on above: Performed By: #### C BCDIF, CMP ####[facility], [place] [phone] Neutrophils/100 WBC (Bld) 69.5 % Normal [facility] Comment on above: Performed By: #### C BCDIF, CMP ####[place] [address], [place] [phone] NRBCs 0.0 /100 WBC Normal 0 [facility] Comment on above: Performed By: #### C BCDIF, CMP ####[place] [address] [phone] Platelet mean volume (Bld) [Entitic vol] 11.4 fL Normal 9.0-12.7 [facility] Comment on above: Performed By: #### C BCDIF, CMP ####[place] [address], [place] [phone] Platelets (Bld) [#/Vol] 194 10*3/uL Normal 150-400 [facility] Comment on above: Performed By: #### C BCDIF, CMP ####[place] [address], [place] [phone] RBC (Bld) [#/Vol] 5.15 10*6/uL Normal 4.20-6.00 [facility] Comment on above: Performed By: #### C BCDIF, CMP ####[place] [address], [place] [phone] WBC (Bld) [#/Vol] 7.25 10*3/uL Normal 3.70-11.00 [facility] Comment on above: Performed By: #### C BCDIF, CMP ####[place] [address], [place] [phone] Comp Metabolic Panelon 08-07 Albumin [Mass/Vol] 4.8 g/dL Normal 3.9-4.9 [facility] Comment on above: Performed By: #### C BCDIF, CMP ####[place] [address], [place] [phone] ALP [Catalytic activity/Vol] 71 U/L Normal 38-113 [facility] Comment on above: Performed By: #### C BCDIF, CMP ####[place] [address] [phone] ALT [Catalytic activity/Vol] 31 U/L Normal 10-54 [facility] Comment on above: Performed By: #### C BCDIF, CMP ####[place] [address], [place] [phone] Anion gap [Moles/Vol] 14 mmol/L Normal 9-18 [facility] Comment on above: Performed By: #### C BCDIF, CMP ####[place] [address], [place] [phone] AST [Catalytic activity/Vol] 24 U/L Normal 14-40 [facility] Comment on above: Performed By: #### C BCDIF, CMP ####[place] [address], [place] [phone] Bilirubin [Mass/Vol] 0.3 mg/dL Normal 0.2-1.3 [facility] Comment on above: Performed By: #### C BCDIF, CMP ####[place] [address], [place] [phone] Calcium [Mass/Vol] 9.5 mg/dL Normal 8.5-10.2 [facility] Comment on above: Performed By: #### C BCDIF, CMP ####[place] [address], [place] [phone] Chloride [Moles/Vol] 99 mmol/L Normal 97-105 [facility] Comment on above: Performed By: #### C BCDIF, CMP ####[facility] [address], [place] [phone] CO2 [Moles/Vol] 26 mmol/L Normal 22-30 [facility] Comment on above: Performed By: #### C BCDIF, CMP ####[facility], [place] [phone] Creatinine [Mass/Vol] 1.37 mg/dL High 0.73-1.22 [facility] Comment on above: Performed By: #### C BCDIF, CMP ####[facility] [place], [place] [phone] eGFR- Amer. >60 Normal [facility] Comment on above: Performed By: #### C BCDIF, CMP ####[place] [address], [place] [phone] eGFR-All Other Races 53 . Normal [facility] Comment on above: Result Comment: eGFR (Estimated GFR) Units of measure: mL/min/1.73 meters squared eGFR is derived from the reexpressed MDRD Study equation using the following parameters: serum creatinine, age, gender and race. The creatinine assay has been calibrated to be traceable to IDMS. An eGFR <60 mL/min/1.73m2 for >3 months is consistent with chronic kidney disease. Refer to KDOQI guidelines for clinical interpretation. In patients with unstable renal function, e.g. those with acute kidney injury, the eGFR may not accurately reflect actual GFR. Note: On 08/24/2021, the eGFR calculation will be updated to the NKF-ASN Task Force recommended 2020 CKD-EPI creatinine equation which does not include a race variable. For more information or to access a 2020 CKD-EPI calculator, visit the National Kidney Foundation website at kidney.org/professionals/kdoqi/gfr_calculator. Performed By: #### C BCDIF, CMP ####[facility], [place] [phone] Glucose [Mass/Vol] 115 mg/dL High 74-99 [facility] Comment on above: Result Comment: The [place] Diabetes Association (ADA) provides guidance for cutoff values for fasting glucose and random glucose. The ADA defines fasting as no caloric intake for at least 8 hours. Fasting plasma glucose results between 100 to 125 mg/dL indicate increased risk for diabetes (prediabetes). Fasting plasma glucose results greater than or equal to 126 mg/dL meet the criteria for diagnosis of diabetes. In the absence of unequivocal hyperglycemia, results should be confirmed by repeat testing. In a patient with classic symptoms of hyperglycemia or hyperglycemic crisis, random plasma glucose results greater than or equal to 200 mg/dL meet the criteria for diagnosis of diabetes. Reference: Standards of Medical Care in Diabetes 2016, [place] [employer]. Diabetes Care. 2016.39(Suppl 1). Performed By: #### C BCDIF, CMP ####[address] [phone] Potassium [Moles/Vol] 5.1 mmol/L Normal 3.7-5.1 [facility] Comment on above: Performed By: #### C BCDIF, CMP ####[address] [phone] Protein [Mass/Vol] 7.0 g/dL Normal 6.3-8.0 [facility] Comment on above: Performed By: #### C BCDIF, CMP ####[place] [address] [place], [place] [phone] Sodium [Moles/Vol] 139 mmol/L Normal 136-144 [facility] Comment on above: Performed By: #### C BCDIF, CMP ####[place] [address] [place], [place] [phone] Urea nitrogen [Mass/Vol] 24 mg/dL Normal 9-24 [facility] Comment on above: Performed By: #### C BCDIF, CMP ####[address] [phone] HISTORY PHYSICALon 2 HISTORY PHYSICAL HNO ID: [id number] Author: Gwendolyn Spivey APRN.SHEA Service: ? Author Type: Nurse Practitioner Type: HANDP Filed: 08/14/2021 12:08 PM Note Text: HISTORY AND PHYSICAL EXAMINATION SERVICE DATE: 08/07/2021 SERVICE TIME: 11:50 AM PRIMARY CARE PHYSICIAN: Jose Ray DO REASON FOR VISIT: Mary Jimenez is a 61 year old male who is scheduled for TLIF DECOMPRESSION LAMINECTOMY INTERBODY FUSION LUMBAR POSTERIOR (PLIF) LEVEL 1 at the request of Dr. Christy Cat for consultation. My final recommendation will be communicated back to the requesting physician by way of shared medical record or letter. 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 Has tired injections and PT. Has had 3 back surgeries in the past. Has elected for upcoming procedure. PAST MEDICAL HISTORY Diagnosis Date - Anxiety - Dyslipidemia - Hypertension - Obstructive sleep apnea - Stroke (HCC) - Urinary retention PAST SURGICAL HISTORY Procedure Laterality Date - PAST SURGICAL HISTORY OF 12/07/14 L4-5 FAMILY HISTORY Problem Relation Age of Onset - Diabetes Mother SOCIAL HISTORY: Social History Tobacco Use - Smoking status: Never Smoker - Smokeless tobacco: Never Used Substance Use Topics - Alcohol use: Yes Comment: 2 glasses of wine per day. - Drug use: No Comment: denies tx for drug/alcohol abuse in the past. MEDICATIONS: Prior to Admission medications as of 08/07/21 1148 Medication Sig Last Dose Taking mupirocin (BACTROBAN) 2 % ointment Apply 1/2 Bactroban with a cotton swab to each nostril in the morning and at bedtime starting 5 days prior to surgery date. Yes Ascorbic Acid (VITAMIN C) 500 mg chew Take 500 mg by mouth once daily. Yes rizatriptan (MAXALT) 10 mg tablet Take 10 mg by mouth as needed. 3 times daily as needed Yes aspirin 325 mg tablet Take 325 mg by mouth as needed. Yes sildenafil (VIAGRA) 50 mg tablet Take 50 mg by mouth as needed. Yes Phentermine HCl 37.5 mg capsule Take 37.5 mg by mouth once daily. Yes docosahexaenoic acid/epa (FISH OIL ORAL) Take by mouth once daily. Yes prasterone, dhea, (DHEA) 50 mg tab Take by mouth once daily. Yes onabotulinum toxin type A (BOTOX) 100 unit solr every 90 days for migraines Yes fremanezumab-vfrm (AJOVY SYRINGE SUBCUTANEOUS) Inject 250 mg/mL subcutaneously. every 28 days for migraines Yes nortriptyline (PAMELOR) 50 mg capsule Take 50 mg by mouth daily at bedtime. Yes vitamin b complex tab Take 1 tablet by mouth once daily. 5000 mcg Yes cholecalciferol, vitamin D3, (VITAMIN D3 ORAL) Take 125 mcg by mouth once daily. Yes ubidecarenone (ULTRA COQ10 ORAL) Take 50 mg by mouth once daily. Yes OTC NUTRITIONAL SUPPLEMENT once daily. Tumeric 500 mg x2 Yes OTC NUTRITIONAL SUPPLEMENT 500 mg once daily. Curcumin Yes OTC PRODUCT 350 mg once daily. Milk thistle Yes OTC PRODUCT 315 mg once daily. Green Tea Yes CHROMIUM PICOLINATE ORAL Take 800 mcg by mouth once daily. Yes selenium 200 mcg tablet Take 1 tablet by mouth once daily. Yes Berb Sampson/herbal complex no.18 (BERBERINE-HERBAL COMB NO.18 ORAL) Take 1,000 mg by mouth twice daily. Yes MAGNESIUM ORAL Take 400 mg by mouth once daily. Yes diclofenac sodium (VOLTAREN) 1 % topical gel Apply to affected area three times daily. Yes finasteride (PROSCAR) 5 mg tablet Take 5 mg by mouth once daily. Yes Zolpidem (AMBIEN CR) 12.5 mg CR tablet daily at bedtime. Yes CALCIUM CARBONATE/VITAMIN D3 (CALCIUM 600 + D ORAL) Take by mouth once daily. Yes CALCITONIN,SALMON,SYNTHE TIC (CALCITONIN, SALMON, NASAL) Use in the nose once daily. Yes LACTOBACILLUS ACIDOPHILUS (PROBIOTIC ACIDOPHILUS ORAL) Take by mouth once daily. Yes TESTOSTERONE INTRAMUSC. Inject 300 mg intramuscularly every other week. Yes doxepin capsule 10 mg Take 10 mg by mouth daily at bedtime. Takes 2 tabs at bedtime Yes dicyclomine (BENTYL) 10 mg capsule Take 20 mg by mouth as needed. 4 times daily as needed Yes BIOTIN ORAL Take 10 mcg by mouth once daily. Yes MULTIVITS-MINERALS/FA/LY COPENE (ONE-A-DAY MEN'S ORAL) Take by mouth. Yes eletriptan (RELPAX) 40 mg tablet Take 40 mg by mouth as needed. may repeat in 2 hours if necessary Yes promethazine (PHENERGAN) 25 mg tablet Take 25 mg by mouth as needed. Yes clopidogrel (PLAVIX) 75 mg tablet Take 1 tablet by mouth once daily. Yes atorvastatin (LIPITOR) 80 mg tablet Take 80 mg by mouth once daily. Yes OMEPRAZOLE (PRILOSEC ORAL) Take 40 mg by mouth once daily. Yes DULoxetine (CYMBALTA) 30 mg caps (more content not included)... Normal [facility] Type and SCR (30D)on 022 ABO/RH(D) Positive [facility] Comment on above: Performed By: #### T [id number] #### [facility] [address] [place] [address] [facility] 07-15-2021 [facility] Telephone (NIQ) -------- MARY JIMENEZ ([id number]) 1960 M Date Time Provider Department 07/15/21 LOYDA STEELE During your visit today, we recorded the following information about you: CHITRA Beverly 07/15/2021 10:19 AM Signed Calender Worker Helper from [facility], Doris, called to discuss a treatment or procedure Mr. Jimenez is suppose to have before his surgery scheduled in July. She would like to speak with the nurse or Dr. Austin and can be reached at . Joanne Jim RN 07/15/2021 10:48 AM Signed Spoke with Doris who staets that patient was ordered to have Lumbar Ablation. The first one was completed on 06/25/21 and the second one scheduled or June was cx'd d/t illness. It has now been rescheduled to 07/30/21. States that Dr. Ochoa is willing to do this procedure without Steroids if it is a concern. Doris would like to know if ok to proceed with the 07/[address] Steele is out of the office this week but will forward to the physician certified pathology assistant for review. Greta Nunez RN 07/16/2021 8:38 AM Signed Returned call to [facility] and informed that it is okay to proceed with injection. Greta Nunez RN 07/16/2021 8:51 AM Signed Doris returned call regarding steroids. Informed per PA okay to use steroids if needed, if not needed then okay to proceed without them. Allergies As of Date: 07/15/2021 Noted Allergy Reaction PENICILLINS 06/07/2014 10 - Anaphylaxis LATEX 09/04/2016 2 - Rash Date Reviewed: 05/29/2021 Reviewed by: Christine Clements - Fully Assessed Reason for Visit: Patient Update [1234] Prescriptions as of 07/16/2021 - mupirocin (BACTROBAN) 2 % ointment Apply 1/2 Bactroban with a cotton swab to each nostril in the morning and at bedtime starting 5 days prior to surgery date. - Ascorbic Acid (VITAMIN C) 500 mg chew Take 500 mg by mouth once daily. - rizatriptan (MAXALT) 10 mg tablet Take 10 mg by mouth as needed. 3 times daily as needed - OTC PRODUCT once daily. Tinnitus 911 : 1 tab - aspirin 325 mg tablet Take 325 mg by mouth as needed. - sildenafil (VIAGRA) 50 mg tablet Take 50 mg by mouth as needed. - Phentermine HCl 37.5 mg capsule Take 37.5 mg by mouth once daily. - docosahexaenoic acid/epa (FISH OIL ORAL) Take by mouth once daily. - prasterone, dhea, (DHEA) 50 mg tab Take by mouth once daily. - OTC PRODUCT once daily. Leptitox : 2 tabs - onabotulinum toxin type A (BOTOX) 100 unit solr every 90 days for migraines - fremanezumab-vfrm (AJOVY SYRINGE SUBCUTANEOUS) Inject 250 mg/mL subcutaneously. every 28 days for migraines - nortriptyline (PAMELOR) 50 mg capsule Take 50 mg by mouth daily at bedtime. - vitamin b complex tab Take 1 tablet by mouth once daily. 5000 mcg - cholecalciferol, vitamin D3, (VITAMIN D3 ORAL) Take 125 mcg by mouth once daily. - ubidecarenone (ULTRA COQ10 ORAL) Take 50 mg by mouth once daily. - OTC NUTRITIONAL SUPPLEMENT once daily. Tumeric 500 mg x2 - OTC NUTRITIONAL SUPPLEMENT 500 mg once daily. Curcumin - OTC PRODUCT 350 mg once daily. Milk thistle - OTC PRODUCT 315 mg once daily. Green Tea - CHROMIUM PICOLINATE ORAL Take 800 mcg by mouth once daily. - Lactobacillus acidophilus (PROBIOTIC ORAL) Take by mouth once daily. 100 million - selenium 200 mcg tablet Take 1 tablet by mouth once daily. - Berb Sampson/herbal complex no.18 (BERBERINE-HERBAL COMB NO.18 ORAL) Take 1,000 mg by mouth twice daily. - HYDROcodone-Acetaminophe n (NORCO) 7.5-325 mg per tablet Take 1 tablet by mouth every 8 hours as needed. - gabapentin (NEURONTIN) 600 mg tablet Take 600 mg by mouth three times daily. - COMPOUNDED PRESCRIPTION Clor-Rite 100mg daily. - ANASTROZOLE ORAL Take by mouth. - hydrOXYzine HCl (ATARAX) 25 mg tablet Take 25 mg by mouth three times daily as needed. - PEPPERMINT OIL (IBGARD ORAL) Take by mouth. - MAGNESIUM ORAL Take 400 mg by mouth once daily. - diclofenac sodium (VOLTAREN) 1 % topical gel Apply to affected area three times daily. - finasteride (PROSCAR) 5 mg tablet Take 5 mg by mouth once daily. - COMPOUNDED PRESCRIPTION Hydroxycut once daily. - HYDROcodone-acetaminophe n (NORCO) 5-325 mg per tablet three times daily. - Zolpidem (AMBIEN CR) 12.5 mg CR tablet daily at bedtime. - CALCIUM CARBONATE/VITAMIN D3 (CALCIUM 600 + D ORAL) Take by mouth once daily. - CALCITONIN,SALMON,SYNTHE TIC (CALCITONIN, SALMON, NASAL) Use in the nose once daily. - amitriptyline (ELAVIL) 25 mg tablet once daily. - gabapentin (NEURONTIN) 100 mg capsule Take 600 mg by mouth daily at bedtime. - CHROM GREGORIO/BRINDAL BAKER (GARCINIA CAMBOGIA ORAL) Take by mouth once daily. - FIBER, PSYLLIUM HUSK, ORAL Take by mouth once daily. - LACTOBACILLUS ACIDOPHILUS (PROBIOTIC ACIDOPHILUS ORAL) Take by mouth once daily. - TESTOSTERONE INTRAMUSC. Inject 300 mg i (more content not included)... Normal [facility] CARDIAC STRESS/REST (KAREN CARDIAL PERFUSION/MIBI)on 05-09-2020 [facility] CARDIAC STRESS/REST (MYOCARDIAL PERFUSION/MIBI) Patient Name: MARY JIMENEZ STUDY: MYOCARDIAL PERFUSION STRESS TEST WITH LEXISCAN Performing facility: [facility], \[address], [address], \[place] [address] [facility] Provider: Danisha Bran MD PCP: Dr. Ana Ray Supervising provider: Yobany Garcia MD, [facility] INDICATION: Chest Pain; SOB; HISTORY: Gender: M; Age: 59 y/o ; Height: 177.8 cm; Weight: [phone] kg. High Cholesterol; HTN; Chest Pain; SOB; Denies smoking. Cardiac catheterization on 1999. COMPARISON: Previous nuclear testing completed [id number] [facility]. ACCESSION NUMBER(S): [id number]; [id number]; [id number] ORDERING CLINICIAN: DANISHA BRAN TECHNIQUE: TWO DAY protocol. Stress injection: Date:05/09/2020, 35.1 mCi of Myoview IV 20 seconds after rapid injection of Lexiscan. Rest injection: Date: 05/10/2020, 33.1 mCi of Myoview IV at rest. The patient had a rapid injection of 0.4 mg of Lexiscan IV over 10 seconds. Imaging was performed by gated tomographic technique. Reason for Lexiscan: dizziness/unsteady/fall risk STRESS TEST DATA: Resting heart rate was 78 BPM. Resting blood pressure was 140/80 mmHg. Peak blood pressure was 130/78 mmHg. Peak heart rate was 91 BPM. TEST TERMINATED DUE TO: Protocol completed FINDINGS: STRESS TEST RESULTS: Resting electrocardiogram revealed normal sinus rhythm. There were no significant ischemic ECG changes or dysrhythmias. The patient did not have chest pains/symptoms during procedure. There was a normal recovery phase. IMAGING RESULTS: Image quality was good. Rest and stress tomographic images were reviewed and revealed normal perfusion without evidence of ischemia, myocardial infarction, or left ventricular dilatation with stress. Overall left ventricular systolic function appeared to be normal without regional wall motion abnormalities. Ejection fraction was 59%. TID is 1.01 and is normal. There was no evidence of attenuation artifact. IMPRESSION: Normal Lexiscan Myoview cardiac perfusion stress test. No evidence of ischemia or myocardial infarction by perfusion imaging. Normal left ventricular systolic function, ejection fraction 59%. When compared to the study from 2014, there has been no significant interval changes. Electronically signed by: YOBANY GARCIA MD Normal [facility] CARDIAC STRESS/REST INJE CTIONon 05-09-2020 [facility] CARDIAC STRESS/REST INJECTION Patient Name: MARY JIMENEZ STUDY: MYOCARDIAL PERFUSION STRESS TEST WITH LEXISCAN Performing facility: [facility], \[address], [address], \[place] [id number] [facility] Provider: Danisha Bran MD PCP: Dr. Ana Ray Supervising provider: Yobany Garcia MD, [facility] INDICATION: Chest Pain; SOB; HISTORY: Gender: M; Age: 59 y/o ; Height: 177.8 cm; Weight: [phone] kg. High Cholesterol; HTN; Chest Pain; SOB; Denies smoking. Cardiac catheterization on 1999. COMPARISON: Previous nuclear testing completed [id number] [facility]. ACCESSION NUMBER(S): [id number]; [id number]; [id number] ORDERING CLINICIAN: DANISHA BRAN TECHNIQUE: TWO DAY protocol. Stress injection: Date:05/09/2020, 35.1 mCi of Myoview IV 20 seconds after rapid injection of Lexiscan. Rest injection: Date: 05/10/2020, 33.1 mCi of Myoview IV at rest. The patient had a rapid injection of 0.4 mg of Lexiscan IV over 10 seconds. Imaging was performed by gated tomographic technique. Reason for Lexiscan: dizziness/unsteady/fall risk STRESS TEST DATA: Resting heart rate was 78 BPM. Resting blood pressure was 140/80 mmHg. Peak blood pressure was 130/78 mmHg. Peak heart rate was 91 BPM. TEST TERMINATED DUE TO: Protocol completed FINDINGS: STRESS TEST RESULTS: Resting electrocardiogram revealed normal sinus rhythm. There were no significant ischemic ECG changes or dysrhythmias. The patient did not have chest pains/symptoms during procedure. There was a normal recovery phase. IMAGING RESULTS: Image quality was good. Rest and stress tomographic images were reviewed and revealed normal perfusion without evidence of ischemia, myocardial infarction, or left ventricular dilatation with stress. Overall left ventricular systolic function appeared to be normal without regional wall motion abnormalities. Ejection fraction was 59%. TID is 1.01 and is normal. There was no evidence of attenuation artifact. IMPRESSION: Normal Lexiscan Myoview cardiac perfusion stress test. No evidence of ischemia or myocardial infarction by perfusion imaging. Normal left ventricular systolic function, ejection fraction 59%. When compared to the study from 2014, there has been no significant interval changes. Electronically signed by: YOBANY GARCIA MD [facility] [address] PART 2 STRESS OR REST (N O CHARGE)on 05-09-2020 [facility] PART 2 STRESS OR REST (NO CHARGE) Patient Name: MARY JIMENEZ STUDY: MYOCARDIAL PERFUSION STRESS TEST WITH LEXISCAN Performing facility: [facility], \[address], [address], \[address] Provider: Danisha Bran MD PCP: Dr. Ana Ray Supervising provider: Yobany Garcia MD, [facility] INDICATION: Chest Pain; SOB; HISTORY: Gender: M; Age: 59 y/o ; Height: 177.8 cm; Weight: 352.5211153 kg. High Cholesterol; HTN; Chest Pain; SOB; Denies smoking. Cardiac catheterization on 1999. COMPARISON: Previous nuclear testing completed [id number] [facility]. ACCESSION NUMBER(S): [id number]; [id number]; [id number] ORDERING CLINICIAN: DANISHA BRAN TECHNIQUE: TWO DAY protocol. Stress injection: Date:05/09/2020, 35.1 mCi of Myoview IV 20 seconds after rapid injection of Lexiscan. Rest injection: Date: 05/10/2020, 33.1 mCi of Myoview IV at rest. The patient had a rapid injection of 0.4 mg of Lexiscan IV over 10 seconds. Imaging was performed by gated tomographic technique. Reason for Lexiscan: dizziness/unsteady/fall risk STRESS TEST DATA: Resting heart rate was 78 BPM. Resting blood pressure was 140/80 mmHg. Peak blood pressure was 130/78 mmHg. Peak heart rate was 91 BPM. TEST TERMINATED DUE TO: Protocol completed FINDINGS: STRESS TEST RESULTS: Resting electrocardiogram revealed normal sinus rhythm. There were no significant ischemic ECG changes or dysrhythmias. The patient did not have chest pains/symptoms during procedure. There was a normal recovery phase. IMAGING RESULTS: Image quality was good. Rest and stress tomographic images were reviewed and revealed normal perfusion without evidence of ischemia, myocardial infarction, or left ventricular dilatation with stress. Overall left ventricular systolic function appeared to be normal without regional wall motion abnormalities. Ejection fraction was 59%. TID is 1.01 and is normal. There was no evidence of attenuation artifact. IMPRESSION: Normal Lexiscan Myoview cardiac perfusion stress test. No evidence of ischemia or myocardial infarction by perfusion imaging. Normal left ventricular systolic function, ejection fraction 59%. When compared to the study from 2014, there has been no significant interval changes. Electronically signed by: YOBANY GARCIA MD [facility] Vital Signs Date Time Vital Sign Value Performing Clinician Faci brett 08-28-2023 11:01-0500 Body height 176.5 cm Danisha Woodall Work Phone: [facility] 08-28-2023 11:01-0500 Body mass index (BMI) [Ratio] 40.7 kg/m2 Danisha Bran MD Work Phone: [facility] 08-28-2023 11:01-0500 Body weight 126.83 kg Danisha Woodall Work Phone: [facility] 08-28-2023 11:01-0500 Diastolic blood pressure 66 mm[Hg] Danisha Bran MD Work Phone: [facility] 08-28-2023 11:01-0500 Heart rate 80 /min Danisha Woodall Work Phone: [facility] 08-28-2023 11:01-0500 Systolic blood pressure 110 mm[Hg] Danisha Bran MD Work Phone: [facility] 08-19-2023 13:34-0500 Diastolic blood pressure 75 mm[Hg] DO Jose Oberer Work Phone: [facility] 08-19-2023 13:34-0500 Heart rate 78 /min DO Jose Oberer Work Phone: [facility] 08-19-2023 13:34-0500 Respiratory rate 16 /min DO Jose Oberer Work Phone: [facility] 08-19-2023 13:34-0500 SaO2% (BldA) [Mass fraction] 96 % DO Jose Oberer Work Phone: [facility] 08-19-2023 13:34-0500 Systolic blood pressure 121 mm[Hg] DO Jose Oberer Work Phone: [facility] 08-19-2023 11:59-0500 Body height 176.53 cm DO Jose Oberer Work Phone: [facility] 08-19-2023 11:59-0500 Body weight 123.37 kg DO Jose Oberer Work Phone: [facility] 07-30-2023 14:00-0500 Body height 170.18 cm Jose Oberer Other [facility] 07-30-2023 14:00-0500 Body mass index (BMI) [Ratio] 43.35 kg/m2 Jose Oberer Other Loc[facility] Other 07-30-2023 14:00-0500 Body temperature 97.6 [degF] Jose Oberer Other [facility] Other 07-30-2023 14:00-0500 Body weight 125.56 kg Jose Oberer Other [facility] Other 07-30-2023 14:00-0500 Body weight 125.55 kg DO Jose Oberer Work Phone: [facility] 07-30-2023 14:00-0500 Diastolic blood pressure 64 mm[Hg] Jose Oberer Other [facility] 07-30-2023 14:00-0500 Respiratory rate 18 /min Jose Oberer Other [facility] Other 07-30-2023 14:00-0500 SaO2% (BldA) [Mass fraction] 94 % Jose Oberer Other [facility] Other 07-30-2023 14:00-0500 Systolic blood pressure 103 mm[Hg] Jose Oberer Other [facility] 07-16-2023 13:15-0500 Body height 170.18 cm John Foster Other [facility] 07-16-2023 13:15-0500 Body mass index (BMI) [Ratio] 42.91 kg/m2 John Foster Other [facility] Other 07-16-2023 13:15-0500 Body weight 124.29 kg John Foster Other [facility] Other 07-16-2023 13:15-0500 Body weight 124.28 kg DO Jose Oberer Work Phone: [facility] 07-13-2023 12:45-0500 Body height 170.18 cm Rafael Holbrook Other [facility] 07-13-2023 12:45-0500 Body mass index (BMI) [Ratio] 42.93 kg/m2 Rafael Holbrook Other [facility] Other 07-13-2023 12:45-0500 Body weight 124.33 kg Rafael Holbrook Other [facility] Other 07-13-2023 12:45-0500 Body weight 124.32 kg DO Jose Oberer Work Phone: [facility] 07-13-2023 12:45-0500 Diastolic blood pressure 71 mm[Hg] Rafael Holbrook Other [facility] 07-13-2023 12:45-0500 Respiratory rate 18 /min Rafael Holbrook Other [facility] Other 07-13-2023 12:45-0500 SaO2% (BldA) [Mass fraction] 95 % Rafael Holbrook Other [facility] Other 07-13-2023 12:45-0500 Systolic blood pressure 112 mm[Hg] Rafael Holbrook Other [facility] 07-07-2023 11:15-0500 Body height 170.18 cm Raquel Fitt Other [facility] 06-18-2023 08:00-0500 Body height 170.18 cm Raquel Fitt Other [facility] 06-18-2023 08:00-0500 Body mass index (BMI) [Ratio] 43.47 kg/m2 Raquel Fitt Other [facility] Other 06-18-2023 08:00-0500 Body weight 125.92 kg Raquel Fitt Other [facility] Other 06-18-2023 08:00-0500 Body weight 125.91 kg DO Jose Oberer Work Phone: [facility] 04-30-2023 08:00-0400 Body height 170.18 cm Raquel Fitt Other [facility] Other 04-30-2023 08:00-0400 Body mass index (BMI) [Ratio] 44.18 kg/m2 Raquel Fitt Other [facility] Other 04-30-2023 08:00-0400 Body weight 127.96 kg Raquel Fitt Other [facility] Other 04-16-2023 13:00-0400 Body height 170.18 cm Rafael Holbrook Other [facility] Other 04-16-2023 13:00-0400 Body mass index (BMI) [Ratio] 43.13 kg/m2 Rafael Holbrook Other [facility] Other 04-16-2023 13:00-0400 Body weight 124.92 kg Rafael Holbrook Other [facility] Other 04-16-2023 13:00-0400 Diastolic blood pressure 70 mm[Hg] Rafael Holbrook Other [facility] Other 04-16-2023 13:00-0400 Respiratory rate 18 /min Rafael Holbrook Other [facility] Other 04-16-2023 13:00-0400 SaO2% (BldA) [Mass fraction] 94 % Rafael Holbrook Other [facility] Other 04-16-2023 13:00-0400 Systolic blood pressure 107 mm[Hg] Rafael Holbrook Other [facility] Other 04-07-2023 10:45-0400 Body height 170.18 cm Jose Oberer Other [facility] Other 04-07-2023 10:45-0400 Body mass index (BMI) [Ratio] 43.58 kg/m2 Jose Oberer Other [facility] Other 04-07-2023 10:45-0400 Body temperature 98.3 [degF] Jose Oberer Other [facility] Other 04-07-2023 10:45-0400 Body weight 126.24 kg Jose Oberer Other [facility] Other 04-07-2023 10:45-0400 Diastolic blood pressure 66 mm[Hg] Jose Oberer Other [facility] Other 04-07-2023 10:45-0400 Respiratory rate 18 /min Jose Oberer Other [facility] Other 04-07-2023 10:45-0400 SaO2% (BldA) [Mass fraction] 95 % Jose Oberer Other [facility] Other 04-07-2023 10:45-0400 Systolic blood pressure 104 mm[Hg] Jose Oberer Other [facility] Other 02-12-2023 12:45-0400 Body height 170.18 cm Rafael Holbrook Other [facility] Other 02-12-2023 12:45-0400 Body mass index (BMI) [Ratio] 42.61 kg/m2 Rafael Holbrook Other [facility] Other 02-12-2023 12:45-0400 Body weight 123.42 kg Rafael Holbrook Other [facility] Other 02-12-2023 12:45-0400 Diastolic blood pressure 99 mm[Hg] Rafael Holbrook Other [facility] Other 02-12-2023 12:45-0400 Respiratory rate 18 /min Rafael Holbrook Other [facility] Other 02-12-2023 12:45-0400 SaO2% (BldA) [Mass fraction] 90 % Rafael Holbrook Other [facility] Other 02-12-2023 12:45-0400 Systolic blood pressure 145 mm[Hg] Rafael Holbrook Other [facility] Other 01-08-2023 13:00-0400 Body height 170.18 cm Raquel Fitt Other [facility] Other 01-08-2023 13:00-0400 Body mass index (BMI) [Ratio] 43.4 kg/m2 Raquel Fitt Other [facility] Other 01-08-2023 13:00-0400 Body weight 125.69 kg Raquel Fitt Other [facility] Other 12-18-2022 11:15-0400 Body height 170.18 cm Jose Ray Other [facility] Other 12-18-2022 11:15-0400 Body mass index (BMI) [Ratio] 44.16 kg/m2 Jose Oberer Other [facility] Other 12-18-2022 11:15-0400 Body temperature 97.8 [degF] Jose Oberer Other [facility] Other 12-18-2022 11:15-0400 Body weight 127.92 kg Jose Oberer Other [facility] Other 12-18-2022 11:15-0400 Diastolic blood pressure 71 mm[Hg] Jose Oberer Other [facility] Other 12-18-2022 11:15-0400 Respiratory rate 18 /min Jose Oberer Other [facility] Other 12-18-2022 11:15-0400 SaO2% (BldA) [Mass fraction] 96 % Jose Oberer Other [facility] Other 12-18-2022 11:15-0400 Systolic blood pressure 136 mm[Hg] Jose Oberer Other [facility] Other 12-16-2022 11:30-0400 Body height 170.18 cm Rafael Holbrook Other [facility] Other 12-16-2022 11:30-0400 Body mass index (BMI) [Ratio] 43.91 kg/m2 Rafael Holbrook Other [facility] Other 12-16-2022 11:30-0400 Body weight 127.19 kg Rafael Holbrook Other [facility] Other 12-16-2022 11:30-0400 Diastolic blood pressure 87 mm[Hg] Rafael Holbrook Other [facility] Other 12-16-2022 11:30-0400 Respiratory rate 18 /min Rafael Holbrook Other [facility] Other 12-16-2022 11:30-0400 SaO2% (BldA) [Mass fraction] 94 % Rafael Holbrook Other [facility] Other 12-16-2022 11:30-0400 Systolic blood pressure 131 mm[Hg] Rafael Holbrook Other [facility] Other 10-29-2022 14:15-0400 Body height 170.18 cm Rafael Holbrook Other [facility] Other 10-29-2022 14:15-0400 Body mass index (BMI) [Ratio] 44.48 kg/m2 Rafael Holbrook Other [facility] Other 10-29-2022 14:15-0400 Body weight 128.82 kg Rafael Holbrook Other [facility] Other 10-29-2022 14:15-0400 Diastolic blood pressure 79 mm[Hg] Rafael Holbrook Other [facility] Other 10-29-2022 14:15-0400 Respiratory rate 18 /min Rafael Holbrook Other [facility] Other 10-29-2022 14:15-0400 SaO2% (BldA) [Mass fraction] 90 % Rafael Holbrook Other [facility] Other 10-29-2022 14:15-0400 Systolic blood pressure 136 mm[Hg] Rafael Holbrook Other [facility] Other 10-24-2022 11:39-0400 Body height 175.26 cm Jose L Oberer Work Phone: [facility] [address] DO Work Phone: 10-24-2022 11:39-0400 Body mass index (BMI) [Ratio] 41.94 kg/m2 Jose L Oberer Work Phone: [facility] [address] DO Work Phone: 10-24-2022 11:39-0400 Body surface area Derived from formula 2.4 m2 Jose L Oberer Work Phone: [facility] [address] DO Work Phone: 10-24-2022 11:39-0400 Body weight 128.82 kg Jose L Oberer Work Phone: [facility] DO Work Phone: 10-24-2022 11:39-0400 Diastolic blood pressure 72 mm[Hg] Jose L Oberer Work Phone: [facility] DO Work Phone: 10-24-2022 11:39-0400 Heart rate 68 /min Jose L Oberer Work Phone: [facility] DO Work Phone: 10-24-2022 11:39-0400 Systolic blood pressure 122 mm[Hg] Jose L Oberer Work Phone: [facility] DO Work Phone: 10-21-2022 09:15-0400 Body height 170.18 cm Raquel Montague Other [facility] Other 10-09-2022 14:15-0400 Body height 170.18 cm Jose Oberer Other [facility] Other 10-09-2022 14:15-0400 Body mass index (BMI) [Ratio] 45.01 kg/m2 Jose Oberer Other [facility] Other 10-09-2022 14:15-0400 Body temperature 97.6 [degF] Jose Oberer Other [facility] Other 10-09-2022 14:15-0400 Body weight 130.36 kg Jose Oberer Other [facility] Other 10-09-2022 14:15-0400 Diastolic blood pressure 52 mm[Hg] Jose Oberer Other [facility] Other 10-09-2022 14:15-0400 Respiratory rate 18 /min Jose Oberer Other [facility] Other 10-09-2022 14:15-0400 SaO2% (BldA) [Mass fraction] 94 % Jose Oberer Other [facility] Other 10-09-2022 14:15-0400 Systolic blood pressure 110 mm[Hg] Jose Oberer Other [facility] Other 09-24-2022 11:30-0400 Body height 170.18 cm Olvin Andino Other [facility] Other 09-24-2022 11:30-0400 Body mass index (BMI) [Ratio] 45.76 kg/m2 Olvin Andino Other [facility] Other 09-24-2022 11:30-0400 Body weight 132.54 kg Olvin Andino Other [facility] Other 09-03-2022 12:12-0500 Diastolic blood pressure 61 mm[Hg] DO Jose Oberer Work Phone: [facility] 09-03-2022 12:12-0500 Heart rate 77 /min DO Jose Oberer Work Phone: [facility] 09-03-2022 12:12-0500 Respiratory rate 18 /min DO Jose Oberer Work Phone: [facility] 09-03-2022 12:12-0500 SaO2% (BldA) [Mass fraction] 94 % DO Jose Oberer Work Phone: [facility] 09-03-2022 12:12-0500 Systolic blood pressure 105 mm[Hg] DO Jose Oberer Work Phone: [facility] 09-03-2022 10:04-0500 Body height 175.26 cm DO Jose Oberer Work Phone: [facility] 09-03-2022 10:04-0500 Body temperature 97.9 [degF] DO Jose Oberer Work Phone: [facility] 09-03-2022 10:04-0500 Body weight 135 kg DO Jose Oberer Work Phone: [facility] 08-25-2022 15:00-0500 Body height 170.18 cm Rafael Holbrook Other [facility] Other 08-25-2022 15:00-0500 Body mass index (BMI) [Ratio] 46.4 kg/m2 Rafael Holbrook Other [facility] Other 08-25-2022 15:00-0500 Body weight 134.4 kg Rafael Montalvodiff Other [facility] Other 08-25-2022 15:00-0500 Diastolic blood pressure 69 mm[Hg] Rafael Montalvodiff Other [facility] Other 08-25-2022 15:00-0500 Respiratory rate 20 /min Rafael Montalvodiff Other [facility] Other 08-25-2022 15:00-0500 SaO2% (BldA) [Mass fraction] 93 % Rafael Montalvodiff Other [facility] Other 08-25-2022 15:00-0500 Systolic blood pressure 120 mm[Hg] Rafael Montalvodiff Other [facility] Other 08-22-2022 13:45-0500 Body height 170.18 cm Jose Oberer Other [facility] Other 08-22-2022 13:45-0500 Body mass index (BMI) [Ratio] 46.14 kg/m2 Jose Oberer Other [facility] Other 08-22-2022 13:45-0500 Body temperature 98 [degF] Jose Oberer Other [facility] Other 08-22-2022 13:45-0500 Body weight 133.63 kg Jose Oberer Other [facility] Other 08-22-2022 13:45-0500 Diastolic blood pressure 78 mm[Hg] Jose Oberer Other [facility] Other 08-22-2022 13:45-0500 Respiratory rate 20 /min Jose Oberer Other [facility] Other 08-22-2022 13:45-0500 SaO2% (BldA) [Mass fraction] 95 % Jose Oberer Other [facility] Other 08-22-2022 13:45-0500 Systolic blood pressure 106 mm[Hg] Jose Oberer Other [facility] Other 07-18-2022 10:15-0500 Body height 170.18 cm Alise Missler Other [facility] Other 07-18-2022 10:15-0500 Body mass index (BMI) [Ratio] 47.62 kg/m2 Alise Missler Other [facility] Other 07-18-2022 10:15-0500 Body weight 137.94 kg Alise Missler Other [facility] Other 07-18-2022 10:15-0500 Diastolic blood pressure 60 mm[Hg] Alise Missler Other [facility] Other 07-18-2022 10:15-0500 Respiratory rate 18 /min Alise Missler Other [facility] Other 07-18-2022 10:15-0500 SaO2% (BldA) [Mass fraction] 96 % Alise Missler Other [facility] Other 07-18-2022 10:15-0500 Systolic blood pressure 103 mm[Hg] Alise Missler Other [facility] Other 07-16-2022 16:08-0500 Body height 175.26 cm Jose L Oberer Work Phone: [facility] DO Work Phone: 07-16-2022 16:08-0500 Body mass index (BMI) [Ratio] 45.1 kg/m2 Jose L Oberer Work Phone: [facility] DO Work Phone: 07-16-2022 16:08-0500 Body surface area Derived from formula 2.47 m2 Jose L Oberer Work Phone: [facility] DO Work Phone: 07-16-2022 16:08-0500 Body weight 138.52 kg Jose L Oberer Work Phone: [facility] DO Work Phone: 07-16-2022 16:08-0500 Diastolic blood pressure 70 mm[Hg] Jose L Oberer Work Phone: [facility] DO Work Phone: 07-16-2022 16:08-0500 Heart rate 86 /min Jose L Oberer Work Phone: [facility] DO Work Phone: 07-16-2022 16:08-0500 Systolic blood pressure 120 mm[Hg] Jose L Oberer Work Phone: [facility] DO Work Phone: 06-16-2022 15:30-0500 Diastolic blood pressure 51 mm[Hg] DO Jose Oberer Work Phone: [facility] 06-16-2022 15:30-0500 Heart rate 94 /min DO Jose Oberer Work Phone: [facility] 06-16-2022 15:30-0500 Respiratory rate 20 /min DO Jose Oberer Work Phone: [facility] 06-16-2022 15:30-0500 SaO2% (BldA) [Mass fraction] 93 % DO Jose Oberer Work Phone: [facility] 06-16-2022 15:30-0500 Systolic blood pressure 155 mm[Hg] DO Jose Oberer Work Phone: [facility] 06-16-2022 14:22-0500 Body temperature 97.2 [degF] DO Jose Oberer Work Phone: [facility] 06-16-2022 14:22-0500 Inhaled oxygen flow rate 10 L/min DO Jose Oberer Work Phone: [facility] 06-16-2022 12:28-0500 Body height 175.26 cm DO Jose Oberer Work Phone: [facility] 06-16-2022 12:28-0500 Body mass index (BMI) [Ratio] 43.4 kg/m2 DO Jose Oberer Work Phone: [facility] 06-16-2022 12:28-0500 Body weight 133.6 kg DO Jose Oberer Work Phone: [facility] 05-27-2022 14:15-0500 Body height 177.8 cm Jose Oberer Other [facility] Other 05-27-2022 14:15-0500 Body mass index (BMI) [Ratio] 41.99 kg/m2 Jose Oberer Other [facility] Other 05-27-2022 14:15-0500 Body temperature 98.2 [degF] Jose Oberer Other [facility] Other 05-27-2022 14:15-0500 Body weight 132.77 kg Jose Oberer Other [facility] Other 05-27-2022 14:15-0500 Diastolic blood pressure 68 mm[Hg] Jose Oberer Other [facility] Other 05-27-2022 14:15-0500 Respiratory rate 18 /min Jose Oberer Other [facility] Other 05-27-2022 14:15-0500 SaO2% (BldA) [Mass fraction] 97 % Jose Oberer Other [facility] Other 05-27-2022 14:15-0500 Systolic blood pressure 122 mm[Hg] Jose Oberer Other [facility] Other 05-06-2022 12:00-0500 Body temperature 97.9 [degF] WATER TRAINER Fernanda Graham Work Phone: [facility] 05-06-2022 12:00-0500 Diastolic blood pressure 80 mm[Hg] WATER TRAINER Fernanda Graham Work Phone: [facility] 05-06-2022 12:00-0500 Heart rate 79 /min WATER TRAINER Fernanda Graham Work Phone: [facility] 05-06-2022 12:00-0500 Respiratory rate 18 /min WATER TRAINER Fernanda Graham Work Phone: [facility] 05-06-2022 12:00-0500 SaO2% (BldA) [Mass fraction] 93 % WATER TRAINER Fernanda Graham Work Phone: [facility] 05-06-2022 12:00-0500 Systolic blood pressure 131 mm[Hg] WATER TRAINER Fernanda Graham Work Phone: [facility] 05-06-2022 09:50-0500 Body height 175.26 cm WATER TRAINER Fernanda Graham Work Phone: [facility] 05-06-2022 06:34-0500 Body weight 132.8 kg WATER TRAINER Fernanda Graham Work Phone: [facility] 05-03-2022 19:00-0400 Diastolic blood pressure 115 mm[Hg] WATER TRAINER Fernanda Graham Work Phone: [facility] 05-03-2022 19:00-0400 Heart rate 65 /min WATER TRAINER Fernanda Graham Work Phone: [facility] 05-03-2022 19:00-0400 Respiratory rate 18 /min WATER TRAINER Fernanda Graham Work Phone: [facility] 05-03-2022 19:00-0400 SaO2% (BldA) [Mass fraction] 99 % WATER TRAINER Fernanda Graham Work Phone: [facility] 05-03-2022 19:00-0400 Systolic blood pressure 154 mm[Hg] WATER TRAINER Fernanda Graham Work Phone: [facility] 05-03-2022 14:45-0400 Body height 177.8 cm WATER TRAINER Fernanda Graham Work Phone: [facility] 05-03-2022 14:45-0400 Body temperature 98.6 [degF] WATER TRAINER Fernanda Graham Work Phone: [facility] 05-03-2022 14:45-0400 Body weight 134 kg WATER TRAINER Fernanda Graham Work Phone: [facility] 04-11-2022 09:00-0400 Body height 177.8 cm Jose Oberer Other [facility] Other 04-11-2022 09:00-0400 Body mass index (BMI) [Ratio] 41.71 kg/m2 Jose Oberer Other [facility] Other 04-11-2022 09:00-0400 Body temperature 97.5 [degF] Jose Oberer Other [facility] Other 04-11-2022 09:00-0400 Body weight 131.86 kg Jose Oberer Other [facility] Other 04-11-2022 09:00-0400 Diastolic blood pressure 87 mm[Hg] Jose Oberer Other [facility] Other 04-11-2022 09:00-0400 Respiratory rate 20 /min Jose Oberer Other [facility] Other 04-11-2022 09:00-0400 SaO2% (BldA) [Mass fraction] 96 % Jose Oberer Other [facility] Other 04-11-2022 09:00-0400 Systolic blood pressure 136 mm[Hg] Jose Oberer Other [facility] Other 04-09-2022 12:59-0400 Body temperature 98.8 [degF] Effie Beltran PA-C Work Phone: [facility] 02-25-2022 10:30-0400 Body height 177.8 cm Fernanda Graham Other [facility] Other 02-25-2022 10:30-0400 Body mass index (BMI) [Ratio] 39.74 kg/m2 Fernanda Graham Other [facility] Other 02-25-2022 10:30-0400 Body temperature 97.5 [degF] Fernanda Graham Other [facility] Other 02-25-2022 10:30-0400 Body weight 125.65 kg Fernanda Rgaham Other [facility] Other 02-25-2022 10:30-0400 Diastolic blood pressure 96 mm[Hg] Fernanda Graham Other [facility] Other 02-25-2022 10:30-0400 SaO2% (BldA) [Mass fraction] 77 % Fernanda Graham Other [facility] Other 02-25-2022 10:30-0400 Systolic blood pressure 138 mm[Hg] Fernanda Graham Other [facility] Other 02-13-2022 09:25-0400 Body height 175.3 cm Christy EUBANKS- C Work Phone: [facility] 02-13-2022 09:25-0400 Body weight 122.24 kg Christy EUBANKS- C Work Phone: [facility] 02-13-2022 09:25-0400 Diastolic blood pressure 68 mm[Hg] Christy EUBANKS-C Work Phone: [facility] 02-13-2022 09:25-0400 Heart rate 71 /min Christy EUBANKS- C Work Phone: [facility] 02-13-2022 09:25-0400 Systolic blood pressure 112 mm[Hg] Christy EUBANKS-C Work Phone: [facility] 01-30-2022 11:29-0400 Body height 176.5 cm Effie Velásquezine PA-C Work Phone: [facility] 01-30-2022 11:29-0400 Body weight 117.48 kg Effie Strine PA-C Work Phone: [facility] 01-30-2022 11:29-0400 Diastolic blood pressure 45 mm[Hg] Effie Strine PA-C Work Phone: [facility] 01-30-2022 11:29-0400 Heart rate 76 /min Effie Strine PA-C Work Phone: [facility] 01-30-2022 11:29-0400 Systolic blood pressure 128 mm[Hg] Effie Strine PA-C Work Phone: [facility] 01-28-2022 15:00-0400 Body height 177.8 cm Jose Oberer Other [facility] Other 01-28-2022 15:00-0400 Body mass index (BMI) [Ratio] 38.41 kg/m2 Jose Oberer Other [facility] Other 01-28-2022 15:00-0400 Body temperature 98.2 [degF] Jose Oberer Other [facility] Other 01-28-2022 15:00-0400 Body weight 121.43 kg Jose Oberer Other [facility] Other 01-28-2022 15:00-0400 Diastolic blood pressure 66 mm[Hg] Jose Oberer Other [facility] Other 01-28-2022 15:00-0400 Respiratory rate 20 /min Jose Oberer Other [facility] Other 01-28-2022 15:00-0400 SaO2% (BldA) [Mass fraction] 97 % Jose Oberer Other [facility] Other 01-28-2022 15:00-0400 Systolic blood pressure 122 mm[Hg] Jose Oberer Other [facility] Other 12-17-2021 11:15-0400 Body height 176.5 cm Pacc 4 Work Phone: [facility] 12-17-2021 11:15-0400 Body temperature 97.59 [degF] Pacc 4 Work Phone: [facility] 12-17-2021 11:15-0400 Body weight 117.48 kg Pacc 4 Work Phone: [facility] 12-17-2021 11:15-0400 Diastolic blood pressure 78 mm[Hg] Pacc 4 Work Phone: [facility] 12-17-2021 11:15-0400 Heart rate 98 /min Pacc 4 Work Phone: [facility] 12-17-2021 11:15-0400 Respiratory rate 20 /min Pacc 4 Work Phone: [facility] 12-17-2021 11:15-0400 SaO2% (BldA) [Mass fraction] 97 % Pacc 4 Work Phone: [facility] 12-17-2021 11:15-0400 Systolic blood pressure 124 mm[Hg] Pacc 4 Work Phone: [facility] 11-21-2021 17:45-0400 Hourly Rounding [facility] 11-21-2021 17:45-0400 Promise to Return [facility] 11-21-2021 17:43-0400 Diastolic blood pressure 75 mm[Hg] [facility] 11-21-2021 17:43-0400 Heart rate 94 /min [facility] 11-21-2021 17:43-0400 Mean blood pressure 91 mm[Hg] [facility] 11-21-2021 17:43-0400 Respiratory rate 16 /min [facility] 11-21-2021 17:43-0400 SaO2% (BldA) [Mass fraction] 95 % [facility] 11-21-2021 17:43-0400 Systolic blood pressure 123 mm[Hg] [facility] 11-21-2021 16:50-0400 Diastolic blood pressure 66 mm[Hg] [facility] 11-21-2021 16:50-0400 Heart rate 90 /min [facility] 11-21-2021 16:50-0400 Mean blood pressure 82 mm[Hg] [facility] 11-21-2021 16:50-0400 Respiratory rate 18 /min [facility] 11-21-2021 16:50-0400 SaO2% (BldA) [Mass fraction] 97 % [facility] 11-21-2021 16:50-0400 Systolic blood pressure 115 mm[Hg] [facility] 11-21-2021 15:50-0400 Heart rate 96 /min [facility] 11-21-2021 15:50-0400 SaO2% (BldA) [Mass fraction] 99 % [facility] 11-21-2021 14:56-0400 Diastolic blood pressure 76 mm[Hg] [facility] 11-21-2021 14:56-0400 Heart rate 99 /min [facility] 11-21-2021 14:56-0400 Mean blood pressure 96 mm[Hg] [facility] 11-21-2021 14:56-0400 Respiratory rate 16 /min [facility] 11-21-2021 14:56-0400 Systolic blood pressure 135 mm[Hg] [facility] 11-21-2021 13:32-0400 Respiratory rate 18 /min [facility] 11-21-2021 12:47-0400 Body temperature 98.78 [degF] [facility] 11-21-2021 12:47-0400 Respiratory rate 16 /min [facility] 11-20-2021 16:00-0400 Nursing Progress Note Reason Other: back to room from [facility] 11-20-2021 14:35-0400 Body temperature 98.78 [degF] [facility] 11-20-2021 14:35-0400 Heart rate 100 /min [facility] 11-04-2021 13:40-0400 Body temperature 97.8 [degF] [facility] 11-04-2021 13:40-0400 Diastolic blood pressure 76 mm[Hg] [facility] 11-04-2021 13:40-0400 Heart rate 74 /min [facility] 11-04-2021 13:40-0400 Mean blood pressure 95 mm[Hg] [facility] 11-04-2021 13:40-0400 Respiratory rate 17 /min [facility] 11-04-2021 13:40-0400 SaO2% (BldA) [Mass fraction] 96 % [facility] 11-04-2021 13:40-0400 Systolic blood pressure 133 mm[Hg] [facility] 10-21-2021 14:07-0400 Body height 176.5 cm CRISTA Segundo MD Work Phone: [facility] 10-21-2021 14:07-0400 Body weight 122.92 kg CRISTA Segundo MD Work Phone: [facility] 10-21-2021 14:07-0400 Respiratory rate 20 /min CRISTA Segundo MD Work Phone: [facility] 10-09-2021 11:24-0400 Body height 176.5 cm Loyda Steele MD Work Phone: [facility] 10-09-2021 11:24-0400 Body temperature 97.3 [degF] Loyda Steele MD Work Phone: [facility] 10-09-2021 11:24-0400 Body weight 123.02 kg Loyda Steele MD Work Phone: [facility] 10-09-2021 11:24-0400 Diastolic blood pressure 72 mm[Hg] Loyda Steele MD Work Phone: [facility] 10-09-2021 11:24-0400 Heart rate 78 /min Loyda Steele MD Work Phone: [facility] 10-09-2021 11:24-0400 Systolic blood pressure 119 mm[Hg] Loyda Steele MD Work Phone: [facility] 07-23-2021 16:15-0500 Body height 177.8 cm Jose Oberer Other [facility] Other 07-23-2021 16:15-0500 Body mass index (BMI) [Ratio] 42.73 kg/m2 Jose Oberer Other [facility] Other 07-23-2021 16:15-0500 Body temperature 97.8 [degF] Jose Oberer Other [facility] Other 07-23-2021 16:15-0500 Body weight 135.08 kg Jose Oberer Other [facility] Other 07-23-2021 16:15-0500 Diastolic blood pressure 72 mm[Hg] Jose Oberer Other [facility] Other 07-23-2021 16:15-0500 Respiratory rate 16 /min Jose Oberer Other [facility] Other 07-23-2021 16:15-0500 SaO2% (BldA) [Mass fraction] 97 % Jose Oberer Other [facility] Other 07-23-2021 16:15-0500 Systolic blood pressure 138 mm[Hg] Jose Oberer Other [facility] Other 06-27-2021 10:45-0500 Body height 177.8 cm Jose Oberer Other [facility] Other 06-27-2021 10:45-0500 Body mass index (BMI) [Ratio] 42.7 kg/m2 Jose Oberer Other [facility] Other 06-27-2021 10:45-0500 Body temperature 97.7 [degF] Jose Oberer Other [facility] Other 06-27-2021 10:45-0500 Body weight 134.99 kg Jose Oberer Other [facility] Other 06-27-2021 10:45-0500 Diastolic blood pressure 74 mm[Hg] Jose Oberer Other [facility] Other 06-27-2021 10:45-0500 Respiratory rate 16 /min Jose Oberer Other [facility] Other 06-27-2021 10:45-0500 SaO2% (BldA) [Mass fraction] 99 % Jose Oberer Other [facility] Other 06-27-2021 10:45-0500 Systolic blood pressure 138 mm[Hg] Jose Oberer Other [facility] Other 05-09-2021 10:15-0500 Body height 177.8 cm Jose Oberer Other [facility] Other 05-09-2021 10:15-0500 Body mass index (BMI) [Ratio] 41.38 kg/m2 Jose Oberer Other [facility] Other 05-09-2021 10:15-0500 Body temperature 98 [degF] Jose Oberer Other [facility] Other 05-09-2021 10:15-0500 Body weight 130.82 kg Jose Oberer Other [facility] Other 05-09-2021 10:15-0500 Diastolic blood pressure 78 mm[Hg] Jose Oberer Other [facility] Other 05-09-2021 10:15-0500 Respiratory rate 16 /min Jose Oberer Other [facility] Other 05-09-2021 10:15-0500 SaO2% (BldA) [Mass fraction] 98 % Jose Oberer Other [facility] Other 05-09-2021 10:15-0500 Systolic blood pressure 132 mm[Hg] Jose Oberer Other [facility] Other Encounters Encounter Date Encounter Type Care Provider Facility Start: 08-28-2023 End: 08-28-2023 ambulatory [facility] Start: 08-28-2023 End: 08-28-2023 Office outpatient visit 25 minutes Danisha Bran MD Work Phone: [facility] Comment on above: Angina pectoris (CMS /HCC) (Primary Dx); Shortness of breath on exertion; Essential hypertension; Mixed hyperlipidemia; Morbid obesity (CMS/HCC); Cerebrovascular accident (CVA), unspecified mechanism (CMS/HCC); Never smoked any substance Start: 08-24-2023 End: 08-24-2023 ambulatory Jose Oberer Facility:[facility] Start: 08-19-2023 End: 08-19-2023 ambulatory Jose Oberer Facility:[facility] Start: 08-19-2023 Non-patient / Non-visit DO Ryan l Oberer Work Phone: [facility] Work Phone: Start: 08-19-2023 End: 08-19-2023 Admission to same day surgery center DO Jose Oberer Work Phone: [facility] Work Phone: Start: 08-19-2023 End: 08-19-2023 ambulatory DO Jose Oberer Work Phone: [facility] Work Phone: Start: 08-06-2023 ambulatory Jose Oberer Facility:[facility] Start: 08-06-2023 Registered Recurring DO Jose O berer Work Phone: [facility] Work Phone: Start: 07-30-2023 End: 07-30-2023 ambulatory John Foster Facility:[facility] Start: 07-30-2023 End: 07-30-2023 Patient encounter procedure DO Jose Oberer Work Phone: [facility] [place] Work Phone: Start: 07-30-2023 End: 07-30-2023 ambulatory DO Jose Oberer Work Phone: [facility] Work Phone: Start: 07-30-2023 Office outpatient vi sit 15 minutes Jose Oberer [facility] Start: 07-30-2023 End: 07-30-2023 Patient encounter procedure DO Jose Oberer Work Phone: [facility]- Start: 07-28-2023 End: 07-28-2023 ambulatory Jose Oberer Facility:[facility] Start: 07-28-2023 End: 07-28-2023 ambulatory DO Jose Oberer Work Phone: [facility] Work Phone: Start: 07-28-2023 End: 07-28-2023 Patient encounter procedure DO Jose Oberer Work Phone: [facility] Work Phone: Start: 07-22-2023 Registered Recurring DO Jose O berer Work Phone: [facility] Work Phone: Start: 07-22-2023 End: 07-22-2023 ambulatory Raquel Montague Other [facility] Other Start: 07-22-2023 IBT FOR OBESITY GROU P 2-10 30M Raquel Montague [facility] Start: 07-21-2023 End: 07-21-2023 ambulatory Rafael Holbrook Other [facility] Other Start: 07-21-2023 Telephone encounter Rafael Cameron [employer] Start: 07-16-2023 End: 07-16-2023 ambulatory John Foster Other [facility] Other Start: 07-16-2023 Office outpatient ne w 45 minutes John Foster [facility] Start: 07-16-2023 End: 07-16-2023 Patient encounter procedure DO Jose Oberer Work Phone: [facility]- Start: 07-13-2023 End: 07-13-2023 ambulatory Rafael Montalvodiff Other [facility] Other Start: 07-13-2023 Follow-up encounter Rafael keita [facility] Start: 07-13-2023 End: 07-13-2023 Patient encounter procedure DO Jose Oberer Work Phone: [facility] Work Phone: Start: 07-10-2023 End: 07-10-2023 ambulatory Rafael Holbrook Other [facility] Other Start: 07-10-2023 Telephone encounter Rafael keita [facility] Start: 07-07-2023 End: 07-07-2023 ambulatory Raquel Montague Other [facility] Other Start: 07-07-2023 IBT FOR OBESITY GROU P 2-10 30M Raquel Montague [facility] Start: 07-07-2023 End: 07-07-2023 Patient encounter procedure DO Jose Oberer Work Phone: [facility] Work Phone: Start: 06-18-2023 ([facility] RD FU) [facility] F/ 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 Raquel Vaughnalexandria [facility] Start: 06-18-2023 End: 06-18-2023 ambulatory Raquel Fitt Other [facility] Other Start: 06-18-2023 End: 06-18-2023 Patient encounter procedure DO Jose Oberer Work Phone: [facility] Work Phone: Start: 05-28-2023 End: 05-29-2023 ambulatory NATANAEL ARNOLD Facility:[facility] [place] [place] Start: 05-28-2023 End: 05-28-2023 Patient encounter procedure NATANAEL JOHNSONTZ [facility] Start: 05-26-2023 End: 05-26-2023 ambulatory Jose Oberer Other [facility] Other Start: 05-26-2023 Telephone encounter Jose Oberer [facility] [place] Start: 05-20-2023 End: 05-20-2023 ambulatory Rafael Holbrook Other [facility] Other Start: 05-20-2023 Telephone encounter Rafael Cameron [facility] Start: 05-12-2023 End: 05-12-2023 ambulatory Jose Oberer Other [facility] Other Start: 05-12-2023 Telephone encounter Jose Oberer [facility] Start: 05-01-2023 End: 05-01-2023 ambulatory Jose Oberer Other [facility] Other Start: 05-01-2023 Telephone encounter Jose Oberer [facility] [place] Start: 05-01-2023 End: 05-01-2023 Patient encounter procedure DO Jose Oberer Work Phone: [facility] [place] Work Phone: Start: 04-30-2023 ([facility] RD FU) [facility] F/ 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 Start: 04-30-2023 End: 04-30-2023 ambulatory Raquel Montague Other [facility] Other Start: 04-30-2023 End: 04-30-2023 Patient encounter procedure DO Jose Oberer Work Phone: [facility] Work Phone: Start: 04-20-2023 End: 04-20-2023 ambulatory Jose Oberer Other [facility] Other Start: 04-20-2023 Telephone encounter Jose Oberer [facility] Start: 04-16-2023 End: 04-16-2023 ambulatory Rafael Holbrook Other [facility] Other Start: 04-16-2023 Follow-up encounter [facility] Start: 04-16-2023 Telephone encounter Rafael keita [facility] Start: 04-07-2023 End: 04-07-2023 ambulatory Jose Oberer Other [facility] Other Start: 04-07-2023 Office outpatient vi sit 15 minutes Jose Oberer [facility] Start: 04-03-2023 End: 04-03-2023 ambulatory Jose Oberer Facility:[facility] Start: 03-09-2023 End: 03-09-2023 ambulatory Rafael Holbrook Other [facility] Other Start: 03-09-2023 Telephone encounter Rafael keita [facility] Start: 03-04-2023 End: 03-04-2023 ambulatory Ahmad Sedrick Facility:[facility] Start: 03-04-2023 End: 03-04-2023 ambulatory DO Jose Oberer Work Phone: [facility] Work Phone: Start: 03-04-2023 End: 03-04-2023 Patient encounter procedure DO Jose Oberer Work Phone: [facility] [place] Work Phone: Start: 03-03-2023 End: 03-03-2023 ambulatory Jose Oberer Other [facility] Other Start: 03-03-2023 Telephone encounter Jose Oberer [facility] Start: 02-24-2023 End: 02-24-2023 ambulatory DO Jose Oberer Work Phone: [facility] Work Phone: Start: 02-24-2023 End: 02-24-2023 Patient encounter procedure DO Jose Oberer Work Phone: [facility] Work Phone: Start: 02-18-2023 End: 02-18-2023 ambulatory Rafael Holbrook Other [facility] Other Start: 02-18-2023 Telephone encounter Rafael keita [facility] Start: 02-12-2023 Registered Recurring DO Jose O berer Work Phone: [facility] Work Phone: Start: 02-12-2023 End: 02-12-2023 ambulatory Rafael Holbrook Other [facility] Other Start: 02-12-2023 Follow-up encounter Rafael keita [facility] Start: 02-03-2023 End: 02-03-2023 ambulatory Jose Oberer Other [facility] Other Start: 02-03-2023 Telephone encounter Jose Oberer [facility] Start: 01-27-2023 End: 01-27-2023 ambulatory Rafael Holbrook Other [facility] Other Start: 01-27-2023 Encounter by erica Holbrook [facility] Start: 01-13-2023 End: 01-13-2023 ambulatory Jose Oberer Other [facility] Other Start: 01-13-2023 Telephone encounter Jose Oberer [facility] Start: 01-08-2023 ([facility] RD FU) [facility] F/ 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 Raquel Montague [facility] Start: 01-08-2023 End: 01-08-2023 ambulatory Raquel Montague Other [facility] Other Start: 12-18-2022 Office outpatient vi sit 15 minutes Jose Oberer [facility] Start: 12-18-2022 End: 12-18-2022 ambulatory Rafael Holbrook Facility:[facility] Start: 12-18-2022 End: 12-18-2022 ambulatory DO Jose Oberer Work Phone: [facility] Work Phone: Start: 12-18-2022 End: 12-18-2022 Patient encounter procedure DO Jose Oberer Work Phone: [facility] Start: 12-16-2022 End: 12-16-2022 ambulatory Rafael Holbrook Other [facility] Other Start: 12-16-2022 Follow-up encounter Rafael keita [facility] Start: 12-16-2022 Registered Recurring DO Jose O berer Work Phone: [facility] Work Phone: Start: 12-02-2022 End: 12-02-2022 ambulatory Jose Oberer Other [facility] Other Start: 12-02-2022 Telephone encounter Jose Oberer [facility] Start: 11-25-2022 End: 11-26-[address] SE STILL Facility:[facility] Start: 11-13-2022 End: 11-13-2022 ambulatory Olvin Andino Facility:[facility] Start: 11-13-2022 End: 11-13-2022 Patient encounter procedure DO Jose Ray Work Phone: [facility] [address] Work Phone: Start: 11-04-2022 End: 11-05-[address] JOSE RAY Facility: Start: 10-29-2022 End: 10-29-2022 ambulatory Rafael Holbrook Other [facility] Other Start: 10-29-2022 Follow-up encounter Rafael [facility]ita [facility] Start: 10-24-2022 Office outpatient vi sit 25 minutes Jose Ray Work Phone: [facility] [address] DO Work Phone: Start: 10-21-2022 End: 10-21-2022 ambulatory Raquel Mendest Other [facility] Other Start: 10-21-2022 IBT FOR OBESITY GROU P 2-10 30M Raquel Fitt [facility] Start: 10-20-2022 End: 10-20-2022 ambulatory Olvin Andino Other [facility] Other Start: 10-20-2022 Telephone encounter Olvin Andino [facility] Start: 10-15-2022 End: 10-15-2022 ambulatory Olvin Andino Other [facility] Other Start: 10-15-2022 Office outpatient vi sit 25 minutes Olvin Andino [facility] Start: 10-09-2022 Office outpatient vi sit 40 minutes Jose [facility] [place] Start: 10-09-2022 End: 10-10-[address] JOES RAY [facility] Other Start: 10-06-2022 End: 10-06-2022 ambulatory Olvin Andino Other [facility] Other Start: 10-06-2022 Telephone encounter Olvin Andino [facility] Start: 10-03-2022 End: 10-03-2022 ambulatory Jose Oberer Facility:[facility] Start: 10-03-2022 End: 10-03-2022 ambulatory DO Jose Oberer Work Phone: [facility] Work Phone: Start: 10-03-2022 End: 10-03-2022 Patient encounter procedure DO Jose Oberer [facility]: [facility] [facility] Start: 10-01-2022 End: 10-01-2022 ambulatory Rafael Holbrook Other [facility] Other Start: 10-01-2022 Telephone encounter Rafael Holbrook [facility] Start: 09-24-2022 End: 09-24-2022 ambulatory Olvin Andino Other [facility] Other Start: 09-24-2022 Office outpatient ne w 30 minutes Olvin Andino [facility] Start: 09-18-2022 End: 09-18-2022 ambulatory Jose Oberer Other [facility] Other Start: 09-18-2022 Telephone encounter Jose Oberer [facility] Start: 09-17-2022 End: 09-17-2022 ambulatory Jose Oberer Facility:[facility] Start: 09-17-2022 End: 09-17-2022 ambulatory DO Jose Oberer Work Phone: [facility] Work Phone: Start: 09-17-2022 End: 09-17-2022 Patient encounter procedure DO Jose Oberer Work Phone: [facility]-XRay [facility] Work Phone: Start: 09-15-2022 End: 09-15-2022 ambulatory Jose Oberer Other [facility] Other Start: 09-15-2022 Telephone encounter Jose Oberer [facility] Start: 09-11-2022 End: 09-11-2022 ambulatory Jose Oberer Facility:[facility] Start: 09-11-2022 End: 09-11-2022 ambulatory DO Jose Oberer Work Phone: [facility] Work Phone: Start: 09-11-2022 End: 09-11-2022 Patient encounter procedure DO Jose Oberer Work Phone: [facility] C[facility]-X-Ray [facility] Start: 09-03-2022 End: 09-03-2022 Emergency department patient visit DO Jose Oberer Work Phone: [facility]-Emergency Room Work Phone: Start: 09-02-2022 End: 09-02-2022 ambulatory Jose Oberer Other [facility] Other Start: 09-02-2022 Telephone encounter Jose Oberer [facility] Start: 08-25-2022 Registered Recurring DO Jose O berer Work Phone: [facility]Weight Management Work Phone: Start: 08-25-2022 End: 08-25-2022 ambulatory Rafael Holbrook Other [facility] Other Start: 08-25-2022 Follow-up encounter Rafael keita [facility] Start: 08-22-2022 End: 08-22-2022 ambulatory Jose Ray Other [facility] Other Start: 08-22-2022 Office outpatient vi sit 15 minutes Jose Obgustabor [facility] Start: 08-14-2022 End: 08-14-2022 ambulatory Fernanda Graham Other [facility] Other Start: 08-14-2022 Telephone encounter Fernanda Graham [facility] [address] Start: 08-12-2022 End: 08-13-[address] JOSE RAY Facility:[facility] Start: 08-06-2022 End: 08-06-2022 ambulatory Alise Renteria Other [facility] Other Start: 08-06-2022 Telephone encounter [facility] Start: 07-18-2022 End: 07-18-2022 ambulatory Alise Renteria Other [facility] Other Start: 07-18-2022 Nutrition therapy Alise [facility] Start: 07-18-2022 Telephone encounter Alise [facility] Start: 07-18-2022 Registered Recurring DO Jose medranoer Work Phone: [facility] Work Phone: Start: 07-16-2022 Office outpatient vi sit 25 minutes Jose L Oberer Work Phone: [facility] [address] DO Work Phone: Start: 07-16-[address] Danisha Bran Facility: Start: 07-03-2022 End: 07-03-2022 ambulatory Christy Cat PA-C Work Phone: Neurosurgery Comment on above: Lumbar radiculopathy (Primary Dx) Start: 07-03-2022 End: 07-03-2022 Telemedicine consultation with patient Christy Cat MANISH Work Phone: [facility] Start: 07-02-2022 ambulatory Loyda Steele MD Work Phone: Neurosurgery Comment on above: Mary Jimenez`stan 07/03/22 video conference call-in Meeting Start: 06-16-2022 End: 06-16-2022 Admission to same day surgery center DO Jose Oberer Work Phone: [facility]Surgery [facility] [place] Start: 06-16-2022 End: 06-16-2022 ambulatory DO Jose Oberer Work Phone: [facility] Work Phone: Start: 06-12-2022 End: 06-12-2022 ambulatory DO Jose Oberer Work Phone: [facility] Work Phone: Start: 06-12-2022 End: 06-12-2022 Patient encounter procedure DO Jose Oberer Work Phone: [facility]-Pre-Surgical Testing Start: 06-10-2022 End: 06-10-2022 ambulatory Loyda Steele MD Work Phone: Neurosurgery Comment on above: 3 blood test needed Start: 06-10-2022 End: 06-10-2022 Discharged Recurring DO Jose Oberer Work Phone: [facility]-Physical Therapy [address] Start: 06-10-2022 Registered Recurring DO Jose O berer Work Phone: [facility] [address] Start: 06-05-2022 End: 06-06-[address] JOSE RAY Facility: Start: 06-02-2022 End: 06-02-2022 ambulatory Raquel Montague Other [facility] Other Start: 06-02-2022 Telephone encounter Raquel Montague [facility] Start: 06-02-2022 End: 06-02-2022 Patient encounter procedure DO Jose Oberer Work Phone: [facility] Pwf-Jpt-Ccymcnje Testing Start: 05-28-2022 End: 05-28-2022 Patient encounter procedure KRISTI Priya ISAACElvin [facility] Start: 05-27-2022 End: 05-27-2022 ambulatory Jose Oberer Other Located Within [facility] Other Start: 05-27-2022 Office outpatient vi sit 25 minutes Jose Oberer [facility] Start: 05-27-2022 End: 05-27-2022 Patient encounter procedure Rafael Holley [facility] Start: 05-16-2022 End: 05-21-2022 Pre-admission assessment Se Feliz [facility] Start: 05-13-2022 End: 05-13-2022 ambulatory GUILLAUME BHANDARI Facility:[facility] Start: 05-12-2022 End: 05-12-2022 ambulatory WATER TRAINER Fernanda Graham Work Phone: [facility] Work Phone: Start: 05-12-2022 End: 05-12-2022 Patient encounter procedure WATER TRAINER Fernanda Graham Work Phone: [facility] C[facility]-Lab [facility] Start: 05-09-2022 ambulatory Christy Faustin tt PA-C Work Phone: Radiology Comment on above: Thursday [facility] Start: 05-08-2022 End: 05-08-2022 Patient encounter procedure Rafael Holley [facility] Start: 05-06-2022 End: 11-08-2022 Patient encounter procedure Xavi Smith [facility] Start: 05-06-2022 End: 05-06-2022 ambulatory WATER TRAINER Fernanda Graham Work Phone: [facility] Work Phone: Start: 05-05-2022 ambulatory Jose Ray Facilit [id number] Start: 05-03-2022 End: 05-06-2022 Evaluation and management of inpatient WATER TRAINER Fernanda Graham Work Phone: [facility] Start: 05-03-2022 End: 05-06-2022 observation encounter WATER TRAINER Fernanda Graham Work Phone: [facility] Work Phone: Start: 04-30-2022 Registered Recurring WATER TRAINER Fernanda Graham Work Phone: [facility]-Physical Therapy [address] Start: 04-29-2022 Telephone encounter Guillaume Bhandari DO Work Phone: [facility] [place] Comment on above: Preparations [employer] ced[employer] Start: 04-25-2022 Telephone encounter Guillaume Bhandari DO Work Phone: [facility] [place] Comment on above: [employer] Start: 04-23-2022 Telephone encounter Loyda hernandez MD Work Phone: Neurology Comment on above: Forms (POC from [facility] requesting signature) Start: 04-21-2022 End: 04-21-2022 ambulatory LOYDA STEELE Facility:[facility] Start: 04-17-2022 Telephone encounter Loyda hernandez MD Work Phone: Neurology Comment on above: Patient Question Start: 04-16-2022 Orders Only Guillaume G Haritha contreras DO Work Phone: Spine Medicine Comment on above: Putti's syndrome (Pr imary Dx) Start: 04-11-2022 End: 04-11-2022 ambulatory Jose Ray Other [facility] Other Start: 04-11-2022 Office outpatient vi sit 25 minutes Jose Ray [facility] Start: 04-10-2022 ambulatory Effie Strine PA-C Work Phone: Neurosurgery Comment on above: injection Start: 04-10-2022 E-mail encounter emil m caregiver Effie Strine PA-C Work Phone: [facility] Start: 04-09-2022 End: 04-09-2022 ambulatory LOYDA STEELE Facility:[facility] Start: 04-09-2022 End: 04-09-2022 Patient encounter procedure Effie Strine PA-C Work Phone: Neurosurgery Comment on above: Lumbar radiculopathy (Primary Dx) Start: 04-02-2022 End: 04-02-2022 ambulatory JOSE RAY Facility:[facility] Start: 04-01-2022 Telephone encounter Christine almazano PA-C Work Phone: Provider Adult Comment on above: Wound Care Start: 03-21-2022 Telephone encounter Loyda hernandez MD Work Phone: Neurology Comment on above: Received Outside Med ical Records Start: 03-21-2022 End: 03-21-2022 Patient encounter procedure PHYSICIAN [facility] Scan [facility] Start: 03-17-2022 End: 03-17-2022 ambulatory Jose Revelesdiane Other [facility] Other Start: 03-17-2022 Telephone encounter Jose Ray [facility] Family Medicine [facility] Start: 03-13-2022 ambulatory Loyda Steele MD Work Phone: [facility] Start: 03-13-2022 Follow-up encounter Loyda hernandez MD Work Phone: Neurosurgery Comment on above: Follow-up from Mary Jimenez 03/12 appointment Start: 03-12-2022 End: 03-12-2022 ambulatory LOYDA STEELE Facility:[facility] Start: 03-12-2022 Telephone encounter Loyda hernandez MD Work Phone: Neurology Comment on above: creatinine level Refill Request Start: 03-10-2022 End: 03-10-2022 ambulatory Jose Oberer Other [facility] Other Start: 03-10-2022 Encounter by [employer] Jose Oberer [facility] Start: 03-05-2022 Refill Loyda Steele MD Work Phone: Neurology Comment on above: Refill Request Start: 03-01-2022 End: 03-01-2022 ambulatory Jose Oberer Other [facility] Other Start: 03-01-2022 Encounter by [employer] Jose Oberer [facility] Start: 02-27-2022 End: 02-27-2022 ambulatory JOSE PARAS OBERER Facility:[facility] Start: 02-27-2022 End: 02-27-2022 Patient encounter procedure Christy Cat PA-C Work Phone: Neurosurgery Comment on above: 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 Other Start: 02-25-2022 Office outpatient vi sit 25 minutes Fernanda Graham [facility] Ctr [facility] Start: 02-25-2022 End: 02-25-2022 Patient encounter procedure DO Jose Oberer Work Phone: [facility] C[facility]-XRay [facility] Start: 02-24-2022 Telephone encounter Loyda hernandez MD Work Phone: Neurology Comment on above: Wound Check Lab Orders Start: 02-21-2022 Orders Only Loyda Steele MD Work Phone: Neurology Comment on above: Lumbar radiculopathy (Primary Dx) Start: 02-20-2022 ambulatory Loyda Steele MD Work Phone: Neurosurgery Comment on above: My physical status o n 02/17/22 Start: 02-20-2022 Telephone encounter Loyda hernandez MD Work Phone: Neurology Comment on above: Lab report Start: 02-19-2022 Rx Renewal Jose L Oberer Work Phone: [facility] [address] DO Work Phone: Start: 02-18-2022 Telephone encounter Loyda hernandez MD Work Phone: Neurology Comment on above: Orders Start: 02-13-2022 End: 02-13-2022 Patient encounter procedure Christy EUBANKS-C Work Phone: Neurosurgery Comment on above: Spondylolisthesis, l umbar region (Primary Dx) Radiculopathy, lumba r region Start: 02-13-2022 End: 02-13-2022 ambulatory JOSE PARAS OBERER Facility:[facility] Start: 02-10-2022 Telephone encounter Effie Baca PA-C Work Phone: Neurology Comment on above: Forms Start: 02-07-2022 Patient Msg [facility] Provider Monica cabello Comment on above: Lab order Start: 02-07-2022 End: 02-07-2022 Patient encounter procedure DO Jose Oberer Work Phone: [facility]-Lab [facility] Start: 02-06-2022 End: 02-06-2022 ambulatory Jose Oberer Other Located Within [facility] Other Start: 02-06-2022 Telephone encounter Jose Oberer [facility] Medicine [facility] Start: 01-30-2022 End: 01-31-2022 ambulatory Effiedanny Beltran PA-C Work Phone: Neurosurgery Comment on above: blood work Start: 01-30-2022 E-mail encounter fro m caregiver Effie Beltran PA-C Work Phone: [facility] Start: 01-30-2022 End: 01-30-2022 Patient encounter procedure Effie Beltran PA-C Work Phone: Neurosurgery Comment on above: Alteration in skin i ntegrity related to surgical incision (Primary Dx); Wound healing, delayed; Keloid Start: 01-28-2022 End: 01-28-2022 ambulatory Jose Oberer Other [facility] Other Start: 01-28-2022 Office outpatient vi sit 40 minutes Jose Oberer [facility] Start: 01-26-2022 End: 01-26-2022 ambulatory Jose Oberer Other [facility] Other Start: 01-26-2022 Encounter by erica adam Jose Oberer [facility] Start: 01-17-2022 ambulatory Jose Paras Oberer Facilit y: Start: 01-15-2022 ambulatory [facility] Facility :[facility] Start: 01-15-2022 End: 01-15-2022 ambulatory [facility] Facility:[facility] Start: 01-15-2022 End: 01-15-2022 Subsequent hospital visit by physician Sindhu [facility] Comment on above: Radiculopathy, lumba r region [M54.16] Start: 01-07-2022 Telephone encounter Fredi salazar [facility] Comment on above: Home Care Start: 12-31-2021 ambulatory Bhavani Craig MD Work Phone: Neurosurgery Start: 12-31-2021 End: 01-06-2022 Evaluation and management of inpatient [facility] Facility:[facility] Start: 12-29-2021 End: 12-29-2021 ambulatory CHRISTINE D'IMANI Facility:[facility] Start: 12-19-2021 End: 12-19-2021 Patient encounter procedure DO Jose Oberer Work Phone: [facility]Lab [facility] Start: 12-18-2021 Get Medical Advice Loyda tang MD Work Phone: Neurosurgery Comment on above: [place] [facility] Ref ill Request To Mariluz Beltran/ Start: 12-18-2021 Patient encounter status Jeff Steele MD Work Phone: Neurosurgery Start: 12-17-2021 Encounter for other preprocedural examination JOSE OBERER [facility] Start: 12-17-2021 End: 12-17-2021 ambulatory Loyda Steele MD Work Phone: Pre Anesthesia Comment on above: BMI 37.0-37.9, adult (Primary Dx); Pre-op testing; 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); Primary hypertension; Mixed hyperlipidemia; Intractable chronic migraine without aura and without status migrainosus; Gastroesophageal reflux disease without esophagitis; Stage 3 chronic kidney disease, unspecified whether stage 3a or 3b CKD (HCC); Postoperative infection, unspecified type, subsequent encounter; Obesity without serious comorbidity, unspecified classification, unspecified obesity type; Sleep apnea, unspecified type Refill Request Start: 12-17-2021 End: 12-17-2021 ambulatory JOSE PARAS OBERER Facility:[facility] Start: 12-17-2021 End: 12-17-2021 [place]mission to [place] [address] Work Phone: [facility] Start: 12-17-2021 End: 12-17-2021 Patient encounter status [facility] Work Phone: Pre Anesthesia Start: 12-12-2021 End: 12-12-2021 Patient encounter procedure DO Jose Oberer Work Phone: [facility]Lab [facility] Start: 12-05-2021 ambulatory Loyda Steele MD Work Phone: Neurosurgery Comment on above: Patient Education Start: 12-05-2021 Patient encounter status Jeff Steele MD Work Phone: Neurosurgery Start: 12-05-2021 End: 12-05-2021 Patient encounter procedure DO Jose Oberer Work Phone: [facility]Lab [facility] Start: 11-20-2021 End: 11-21-2021 Emergency department patient visit Stephani Coley [facility] Start: 11-06-2021 Telephone encounter Loyda hernandez MD Work Phone: Neurology Comment on above: Patient Question Start: 11-04-2021 End: 11-04-2021 [facility] Start: 10-24-2021 Telephone encounter Bakari young MD Work Phone: [facility] Provider Adult Comment on above: [employer] Start: 10-23-2021 End: 10-23-2021 ambulatory Loyda Steele MD Work Phone: Neurosurgery Comment on above: S/P lumbar fusion (P rimary Dx) Start: 10-23-2021 End: 10-23-2021 Telemedicine consultation with patient Loyda Steele MD Work Phone: [facility] Start: 10-21-2021 End: 10-21-2021 Patient encounter procedure Bakari Reyes MD Work Phone: [facility] Comment on above: Postoperative infect ion, unspecified type, subsequent encounter (Primary Dx); S/P lumbar fusion Start: 10-15-2021 End: 10-15-2021 [facility] Start: 10-09-2021 End: 10-09-2021 Patient encounter procedure Loyda Steele MD Work Phone: Neurosurgery Comment on above: Spondylolisthesis of lumbar region (Primary Dx) Start: 10-07-2021 End: 10-07-2021 [facility] Start: 10-02-2021 End: 10-02-2021 ambulatory Loyda Steele MD Work Phone: Neurosurgery Comment on above: S/P lumbar fusion (P rimary Dx) Start: 10-02-2021 End: 10-02-2021 Telemedicine consultation with patient Loyda Steele MD Work Phone: [facility] Start: 09-25-2021 End: 09-25-2021 [facility] Start: 09-23-2021 End: 09-23-2021 [facility] Start: 09-04-2021 End: 09-04-2021 Patient encounter procedure Loyda Steele MD Work Phone: Neurosurgery Comment on above: Spondylolisthesis of lumbar region (Primary Dx) Start: 08-16-2021 End: 08-20-2021 Evaluation and management of inpatient LOYDA STEELE Facility:[facility] Start: 08-14-2021 Encounter for other preprocedural examination JOSE OBERER [facility] Start: 08-14-2021 End: 08-14-2021 ambulatory JOSE PARAS OBERER Facility:[facility] Start: 08-07-2021 End: 08-08-2021 ambulatory JOSE PARAS OBERER Facility:[facility] Start: 08-07-2021 ambulatory JOSE PARAS OBERER Facilit y:[facility] Start: 07-23-2021 End: 07-23-2021 ambulatory Jose Oberer Other [facility] Other Start: 07-23-2021 Office outpatient vi sit 40 minutes Jose Oberer [facility] Start: 07-11-2021 End: 07-11-2021 ambulatory Jose Oberer Other [facility] Other Start: 07-11-2021 Telephone encounter Jose Oberer [facility] Start: 06-27-2021 End: 06-27-2021 ambulatory Jose Oberer Other [facility] Other Start: 06-27-2021 Office outpatient vi sit 15 minutes [facility] Start: 05-10-2021 End: 05-10-2021 ambulatory Jose Oberer Other [facility] Other Start: 05-10-2021 Telephone encounter [facility] Start: 05-09-2021 End: 05-09-2021 ambulatory Jose Oberer Other [facility] Other Start: 05-09-2021 Office outpatient vi sit 25 minutes Jose Oberer [facility] Procedures Date Procedure Procedure Detail Performing Clinician Start: 08-19-2023 Colonoscopy DO Jose Ob erer Work Phone: Start: 07-30-2023 Lactoferrin measurement DO Jose Oberer Work Phone: Start: 07-28-2023 Ultrasound elastogra phy of liver DO Jose Oberer Work Phone: Start: 07-28-2023 Ultrasonography of liver DO Jose Oberer Work Phone: Start: 11-13-2022 MRI of left elbow DO Ka rl Oberer Work Phone: Start: 09-17-2022 Plain X-ray of left elbow DO Jose Oberer Work Phone: Start: 09-11-2022 X-ray of cervical spine DO Jose Oberer Work Phone: Start: 09-03-2022 Blood culture for ba cteria, including anaerobic screen DO Ojse Oberer Work Phone: Start: 09-03-2022 Plain chest X-ray DO Ka rl Oberer Work Phone: Start: 09-03-2022 Duplex scan veins of upper limb DO Jose Oberer Work Phone: Start: 06-16-2022 Arthroscopy of knee DO Jose Oberer Work Phone: Start: 06-12-2022 SARS Antigen (LFIA) DO Jose Oberer Work Phone: Start: 05-05-2022 Radiography of thora cic spine WATER TRAINER Fernanda Graham Work Phone: Start: 05-05-2022 X-ray of lumbar spin e, two or three views WATER TRAINER Fernanda Graham Work Phone: Start: 05-04-2022 Doppler ultrasonogra phy of bilateral carotid arteries WATER TRAINER Fernanda Graham Work Phone: Start: 05-03-2022 Plain chest X-ray WATER TRAINER Pe ggy Graham Work Phone: Start: 05-03-2022 CT of head without contrast WATER TRAINER Fernanda Graham Work Phone: Start: 05-03-2022 SARS Antigen (LFIA) WATER TRAINER Fernanda Graham Work Phone: Start: 03-21-2022 CT of lumbar spine w ithout contrast PHYSICIAN NO FAMILY Start: 02-25-2022 X-ray of lumbar spin e, two or three views DO Jose Oberer Work Phone: Start: 02-07-2022 Adult depression scr eening assessment [facility] Provider Start: 01-15-2022 Radex spine lumbosac ral 2/3 views Loyda Steele MD Work Phone: Start: 01-14-2022 Adult depression scr eening assessment [facility] Start: 12-17-2021 Antibody screen JOSE OB ERER Comment on above: Order Comment: Speci men Type: BLOOD SPECIMENOrdering Facility: [facility] Address: [address] [place], [place] [id number] Performed By: #### T [id number] ####CC MAIN BLOOD BANKCLIA [id number] [address] Start: 06-08-2022 Adult depression scr eening assessment Loyda Steele MD Work Phone: Start: 10-02-2021 Adult depression scr eening assessment Loyda Steele MD Work Phone: Start: 09-04-2021 Adult depression scr eening assessment Loyda Steele MD Work Phone: Start: 08-07-2021 Antibody screen LOYDA STEELE Comment on above: Performed By: #### T [id number] #### [place] [id number] Start: 05-18-2020 Decompression of med jake nerve [facility] Comment on above: under local anesthes ia Start: 07-19-2019 Incision AND drainage J kusum Briggs Comment on above: INCISION AND DRAINAG E RIGHT TOTAL KNEE ARTHROPLASTY WITH POLY EXCHANGE, SYNOVECTOMY Start: 06-06-2019 Total knee replacement [facility] Comment on above: RIGHT TOTAL KNEE ART HROPLASTY Start: 01-04-2018 Repair of musculoten dinous cuff of shoulder [facility] Comment on above: left Start: 08-24-2017 Total shoulder replacement [facility]ie [facility] Comment on above: right Start: 06-11-2016 Left total knee arth roplasty compounded by obesity [facility] Start: 02-14-2016 Arthroscopy of shoulder [facility] Comment on above: right Start: 09-02-2010 Colonoscopy Loyda hernandez MD Work Phone: ankle left 7 [facility] Comment on above: left- hardware remov ed Arthroplasty of knee Jose L Oberer Work Phone: Arthroscopy of knee [facility]ie [facility] Comment on above: l x1 rt x2 Back structure, excl uding neck (body structure) [facility] Colonoscopy Jose L Oberer Work Phone: Comment on above: [id number]; Entire foot (body structure) [facility] History of operative procedure on lumbar spinal structure [facility] insertion of bone st imulator 9 [facility] Comment on above: lower back Laminectomy [facility] Operative procedure on ankle Jose L Oberer Work Phone: Operative procedure on knee Jose L Oberer Work Phone: Repair of musculoten dinous cuff of shoulder Jose L Oberer Work Phone: Repair of shoulder Jose L Ob erer Work Phone: rt little finger dulce sed reduction [facility] Surgical procedure on thorax Jose L Oberer Work Phone: Plan of Treatment Date Care Activity Detail Author Start: 01-06-2025 DIABETES SCREEN DIABETES SCREEN [facility] Start: 12-17-2024 DIABETES SCREEN DIABETES SCREEN [facility] Start: 11-22-2024 DIABETES SCREEN [facility] Start: 09-22-2024 DIABETES SCREEN [facility]EN [facility] Start: 04-08-2024 End: 04-08-2024 Patient encounter procedure 04/08/2024 8:30 AM EDT Office Visit [facility] [address] [facility] [address] [place] [id number] Danisha Bran MD [address] [facility] [address] [place] [address] [facility] Start: 08-19-2023 [facility] Start: 07-28-2023 [facility] Start: 04-09-2023 FUV, Provider: Danisha Bran, Status: Pen, Time: 2:50 PM FUV, Provider: Danisha Bran, Status: Pen, Time: 2:50 PM [facility] Work Phone: Start: 02-13-2023 BP CONTROLLED (<130/80) BP CONTROLLE D (<130/80) [facility] Start: 02-07-2023 Adult depression screening assessment DEPRESSION SCREENING [facility] Start: 01-30-2023 BP CONTROLLED (<130/80) BP CONTROLLE D (<130/80) [facility] Start: 01-15-2023 BP CONTROLLED (<130/80) BP CONTROLLE D (<130/80) [facility] Start: 01-14-2023 Adult depression screening assessment DEPRESSION SCREENING [facility] Start: 01-06-2023 SERUM CREATININE SERUM CREATININE [facility] Start: 12-17-2022 BP CONTROLLED (<130/80) BP CONTROLLE D (<130/80) [facility] Start: 12-17-2022 HEMOGLOBIN/HEMATOCRIT HEMOGLOBIN/HEM ATOCRIT [facility] Start: 12-17-2022 SERUM CREATININE SERUM CREATININE [facility] Start: 12-04-2022 Adult depression screening assessment DEPRESSION SCREENING [facility] Start: 11-27-2022 SERUM CREATININE SERUM CREATININE [facility] Start: 10-24-2022 FUV, Provider: Danisha Bran, Status: Pen, Time: 11:10 AM FUV, Provider: Danisha Bran, Status: Hammad, Time: 11:10 AM [facility] 250 DO Work Phone: Start: 10-09-2022 BP CONTROLLED (<130/80) BP CONTROLLE D (<130/80) [facility] Start: 10-02-2022 Adult depression screening assessment DEPRESSION SCREENING [facility] Start: 09-22-2022 SERUM CREATININE SERUM CREATININE [facility] Start: 09-05-2022 BP CONTROLLED (<130/80) BP CONTROLLE D (<130/80) [facility] Start: 09-04-2022 Adult depression screening assessment DEPRESSION SCREENING [facility] Start: 07-16-2022 FUV, Provider: Danisha Bran, Status: Pen, Time: 3:50 PM FUV, Provider: Danisha Bran, Status: Pen, Time: 3:50 PM [facility] 250 DO Work Phone: Start: 06-29-2022 DEPRESSION ASSESSMENT DEPRESSION ASS ESSMENT [facility] Start: 06-16-2022 [facility] Start: 06-16-2022 [facility] Start: 05-06-2022 [facility] Start: 05-06-2022 [facility] Start: 05-06-2022 Referral to pain management nurse practitioner [facility] Start: 05-05-2022 MR Lumbar spine WO a nd W contrast IV [facility] Start: 05-05-2022 MRI of lumbar spine with contrast MR lumbar spine wo/w con [facility] Start: 05-04-2022 Blood chemistry [facility] Start: 05-04-2022 Lipid panel [facility] Start: 05-04-2022 End: 05-04-2022 [facility] Start: 05-03-2022 Hospital admission [facility] Start: 05-03-2022 Doppler ultrasonogra phy of bilateral carotid arteries US carotid doppler BI [facility] Start: 05-03-2022 Physical therapy procedure [facility] Start: 05-03-2022 Referral to neurologist [facility] Start: 05-03-2022 Referral to occupati onal therapist [facility] Start: 05-03-2022 [facility] Start: 05-03-2022 [facility] Start: 03-20-2022 End: 04-12-2023 Ct lumbar spine w/o contrast material CT LUMBAR SPINE WO IVCON Radiology Routine Acute bilateral low back pain with left-sided sciatica Expected: 03/20/2022, Expires: 04/12/2023 [facility] Work Phone: Comment on above: Expected: 03/20/2022 , Expires: 04/12/2023 Start: 02-27-2022 COVID-19 VACCINE (4 - Booster for Sarah series) COVID-19 VACCINE (4 - Booster for Sarah series) [facility] Start: 02-27-2022 Influenza vaccination INFLUENZA (#1) [facility] Start: 02-25-2022 X-ray of lumbar spin e, two or three views XR lumbar spine 2-3V* [facility] Start: 02-25-2022 End: 02-25-2022 Patient encounter procedure Departed Clinical [facility] Start: 02-24-2022 End: 04-26-2022 CREATININE BLD CREATININE BLD Lab Routine Spinal stenosis of lumbar region with neurogenic claudication Expected: 02/24/2022, Expires: 04/26/2022 [facility] Work Phone: Comment on above: Expected: 02/24/2022 , Expires: 04/26/2022 Start: 02-07-2022 End: 04-09-2022 Basic metabolic 2000 panel - Serum or Plasma BASIC METABOLIC PNL Lab Routine Medication monitoring encounter Expected: 02/07/2022, Expires: 04/09/2022 [facility] Work Phone: Comment on above: Expected: 02/07/2022 , Expires: 04/09/2022 Start: 12-20-2021 End: 12-05-2022 SARS-CoV-2 (COVID-19) RNA [Presence] in Respiratory specimen by LATOYA with probe detection PRE-PROCEDURE & PRE-OPERATIVE COVID Microbiology Routine Pre-op testing Expected: 12/20/2021 (Approximate), Expires: 12/05/2022 [facility] Work Phone: Comment on above: Expected: 12/20/2021 (Approximate), Expires: 12/05/2022 Start: 12-17-2021 End: 02-16-2022 TYPE AND SCREEN,30 DAY [facility] Work Phone: Comment on above: Expected: 12/17/2021 , Expires: 02/16/2022 Start: 08-26-2021 COVID-19 VACCINE (3 - Booster for Sarah series) COVID-19 VACCINE (3 - Booster for Sarah series) [facility] Start: 06-29-2021 DEPRESSION ASSESSMENT DEPRESSION ASS ESSMENT [facility] Start: 05-23-2021 COVID-19 VACCINE (2 - Moderna 3-dose series) COVID-19 VACCINE (2 - Moderna 3-dose series) [facility] Start: 03-28-2021 DTaP/Tdap/Td Vaccine s (2 - Td or Tdap) DTaP/Tdap/Td Vaccines (2 - Td or Tdap) [facility] Start: 03-28-2021 Urine microalbumin profile DTAP,TDAP,TD (2 - Td or Tdap) [facility] Start: 2014 PROSTATE CANCER SCRE ENING DISCUSSION PROSTATE CANCER SCREENING DISCUSSION [facility] Start: 09-03-2011 Colonoscopy COLONOSCOPY [facility] Start: 09-03-2011 COLORECTAL CANCER SCREENING COLORECTAL CANCER SCREENING [facility] Start: 2004 COLOGUARD (FIT-DNA) COLOGUARD (FIT-D NA) [facility] Start: 2004 Colonoscopy COLONOSCOPY [facility] Start: 2004 COLORECTAL CANCER SCREENING COLORECTAL CANCER SCREENING [facility] Start: [address] COLONOGRAPHY [facility] Start: 2004 FECAL OCCULT BLOOD FECAL OCCULT BLOO D [facility] Start: 2004 SIGMOIDOSCOPY SIGMOIDOSCOPY [facility] Start: 1994 LIPID SCREEN LIPID SCREEN [facility] Start: 1977 ANNUAL PCP TEAM WORLD GEOGRAPHY TEACHER ERIN DISEASE VISIT ANNUAL PCP TEAM CHRONIC DISEASE VISIT [facility] Start: 1977 BP CONTROLLED (<130/80) BP CONTROLLE D (<130/80) [facility] Start: 1977 Diabetes mellitus screening Diabetes Screening [facility] Start: 1977 HEPATITIS C SCREENING HEPATITIS C [facility] Start: 1977 Hepatitis C screening Hepatitis C [facility] Start: 1977 HIV SCREENING HIV SCREENING [facility] Start: 1964 COVID-19 VACCINE (1) COVID-19 VACCIN E (1) [facility] Start: 1960 MMR Vaccines (1 of 1 - Standard series) MMR Vaccines (1 of 1 - Standard series) [facility] Start: 1959 HIV screening HIV Screening [facility] Start: 1959 Lipid panel Lipid Panel [facility] Start: 1959 Medicare Annual Well ness Visit Medicare Annual Wellness Visit (AWV) [facility] Start: 1959 Screening for malign ant neoplasm of colon [facility] Bacteria identified in Wound by Culture WOUND CULTURE AND GRAM STAIN Microbiology Routine Wound healing, delayed 01/30/2022 12:24 PM EDT [facility] Work Phone: Elastase.pancreatic [Mass/mass] in Stool [facility] Patient Education [facility] Work Phone: Patient referral [facility] Work Phone: Radex spine lumbosac ral 2/3 views XR LUMBAR LIMITED 2V AP/LAT Radiology Routine Radiculopathy, lumbar region 01/15/2022 12:35 PM EDT [facility] Work Phone: End: 03-23-2023 Radex spine lumbosacral 2/3 views XR LUMBAR LIMITED 2V AP/LAT Radiology Routine Lumbar radiculopathy 1 Occurrences starting 02/21/2022 until 03/23/2023 [facility] Work Phone: Comment on above: 1 Occurrences starti ng 02/21/2022 until 03/23/2023 SPINE INTERVENTION PROCEDURE SPINE INTERVENTION PROCEDURE Procedures Routine Spinal stenosis of lumbar region with neurogenic claudication Ordered: 04/01/2022 [facility] Work Phone: Comment on above: Ordered: 04/01/2022 SPINE INTERVENTION PROCEDURE SPINE INTERVENTION PROCEDURE Procedures Routine Lumbar radiculopathy Ordered: 04/14/2022 [facility] Work Phone: Comment on above: Ordered: 04/14/2022 [facility] Immunizations Immunization Date Immunization Notes Care Provider Vincent wetzel 05-01-2023 Prevnar 20 Jose Oberer Other [facility] 05-01-2023 influenza, injectabl e, quadrivalent, preservative free Jose Oberer Other [facility] 04-11-2022 influenza, injectabl e, quadrivalent, preservative free Ojse Oberer Other [facility] 04-11-2022 Pfizer COVID-19 Vac Bivalent 30 MCG/0.3ML Intramuscular Suspension Jose L Oberer Work Phone: [place] [phone] DO Work Phone: 04-02-2022 influenza, seasonal, injectable Jose L Oberer Work Phone: -[facility] 250 DO Work Phone: Comment on above: Series: 01-02-2022 COVID-19 vaccine, ag e 12+ yr ([employer]) r[facility]edi [facility] 04-25-2021 COVID-19 Vaccine Moderna - Documentation Purposes Only Jose Oberer Other [facility] 04-25-2021 Influenza, injectabl e, Madin Louisa Canine Kidney, preservative free, quadrivalent Loyda Steele MD Work Phone: [facility] 04-25-2021 influenza, seasonal, injectable Jose Oberer Other [facility] 09-04-2020 COVID-19 Vaccine Sarah - Documentation Purposes Only Jose Oberer Other [facility] 06-12-2020 zoster vaccine recombinant Jose Oberer Other [facility] 04-12-2020 Seasonal, quadrivalent, recombinant, injectable influenza vaccine, preservative free Loyda Steele MD Work Phone: [facility] 04-12-2020 zoster vaccine recombinant Jose Oberer Other [facility] 04-12-2020 influenza, seasonal, injectable Jose Oberer Other [facility] 02-28-2020 influenza, high dose seasonal, preservative-free Loyda Steele MD Work Phone: [facility] 03-25-2019 influenza, injectabl e, quadrivalent, preservative free Loyda Steele MD Work Phone: [facility] 04-26-2018 influenza, seasonal, injectable Jose Oberer Other [facility] 01-27-2018 influenza virus vaccine, unspecified formulation Jose L Oberer Work Phone: [place] [phone] DO Work Phone: 04-21-2017 influenza, injectabl e, quadrivalent, preservative free Jose Oberer Other [facility] 01-27-2017 influenza virus vaccine, unspecified formulation Jose L Oberer Work Phone: [facility] 250 DO Work Phone: 01-27-2017 influenza, injectabl e, quadrivalent, preservative free Loyda Steele MD Work Phone: [facility] 03-04-2016 influenza virus vaccine, unspecified formulation Jose L Oberer Work Phone: [place] [address] DO Work Phone: 02-28-2016 influenza, seasonal, injectable Jose Oberer Other [facility] 12-08-2014 pneumococcal polysaccharide vaccine, 23 valent Loyda Steele MD Work Phone: [facility] 12-07-2014 influenza virus vaccine, unspecified formulation Jose L Oberer Work Phone: [place] [address] DO Work Phone: 12-07-2014 pneumococcal polysaccharide vaccine, 23 valent Jose L Oberer Work Phone: [facility] 250 DO Work Phone: 05-01-2014 influenza virus vaccine, unspecified formulation Jose L Oberer Work Phone: [place] [address] DO Work Phone: 04-21-2014 influenza, seasonal, injectable Loyda Steele MD Work Phone: [facility] 04-07-2013 influenza virus vaccine, unspecified formulation Jose L Oberer Work Phone: [facility] 250 DO Work Phone: 06-29-2011 influenza, seasonal, injectable Danisha Bran MD Work Phone: [facility] Work Phone: 03-28-2011 influenza, seasonal, injectable Jose Oberer Other [facility] 03-28-2011 tetanus toxoid, adsorbed Jose Oberer Other [facility] 03-28-2011 tetanus toxoid, reduced diphtheria toxoid, and acellular pertussis vaccine, adsorbed Jose Oberer Other [facility] 09-12-2009 influenza virus vaccine, unspecified formulation Jose L Oberer Work Phone: [facility] 250 DO Work Phone: influenza virus vaccine, unspecified formulation Jose L Oberer Work Phone: [place] [address] DO Work Phone: Comment on above: 2011 NEGATED: Highlighted row has not occurred!01-02-2022 COVID-19 vaccine, age 12+ yr ([employer]) [facility]i [facility] Payers Date Payer Category Payer Self-pay [id number] 2021 Medicare MMO MEDICARE MMO MEDADVANTAGE O [id number] 2021-Present [phone] [address] [place] [address] [facility] [id number] 2021 Medicare [id number]. [id number] 1959 Medicare [id number] 2.16.84 [id number] 1959 Unknown [id number] 2.16.840.1.098976.3.579.2.35 6 1959 Unknown [id number] 2.16.840.1.717390.3.579.2.35 6 1959 Unknown [id number] 2.16.840.1.805047.3.579.2.35 6 1959 Unknown [id number] 2.16.840.1.034002.3.579.2.59 3 1959 Unknown [id number] 2.16.840.1.944756.3.579.2.59 3 1959 Unknown [id number] 2.16.840.1.929443.3.579.2.59 3 1959 Unknown [id number] 2.16.840.1.099400.3.579.2.59 3 1959 Unknown [id number] 2.16.840.1.214946.3.579.2.59 3 1959 Unknown [id number] 2.16.840.1.509851.3.579.2.59 3 1959 Unknown [id number] 2.16.840.1.901787.3.579.2.72 7 1959 Unknown [id number] 2.16.840.1.684500.3.579.2.12 44 Medicare Medicare [id number] Unknown Unknown [id number] 2.16.840.1.228903.3.579.2.53 1 Unknown [id number] 2.16.840.1.656774.3.579.2.53 1 Unknown [id number] 2.16.840.1.553468.3.579.2.53 1 Unknown [id number] 2.16.840.1.553317.3.579.2.53 1 Unknown [id number] 2.16.840.1.818751.3.579.2.53 1 Unknown [id number] 2.16.840.1.137144.3.579.2.53 1 Unknown [id number] 2.16.840.1.037085.3.579.2.53 1 Unknown [id number] 2.16.840.1.379813.3.579.2.53 1 Unknown [id number] 2.16.840.1.955499.3.579.2.53 1 Unknown [id number] 2.16.840.1.082683.3.579.2.53 1 Unknown [id number] 2.16.840.1.799258.3.579.2.53 1 Unknown [id number] 2.16.840.1.753033.3.579.2.53 1 Unknown [id number] 2.16.840.1.788854.3.579.2.53 1 Social History Date Type Detail Facility Tobacco smoking status Unknown i f ever smoked [facility] Start: 08-28-2023 Sex Assigned At Male N [facility] [employer] Other Start: 06-07-2014 End: 08-28-2023 Tobacco smoking status [facility] Never smoked tobacco [facility] Start: 06-07-2014 End: 08-28-2023 Tobacco use and exposure Smokeless tobacco non-user [facility] Start: 08-07-2021 End: 08-28-2023 Alcohol intake Current drinker of alcohol (finding) [facility] Start: 08-07-2021 History SDOH Alcohol Comment 2 glasses of wine per day. [facility] Start: 1960 Sex Assigned At Male C [facility] Start: 09-02-2021 End: 08-28-2023 Exposure to SARS-CoV-2 (event) Not sure [facility] Start: 11-22-2021 History SDOH Financial 5 [facility] Start: 11-22-2021 History SDOH Food Worry 1 [facility] Start: 11-22-2021 History SDOH Transpo rt Med 2 [facility] Start: 08-28-2023 Daily caffeine consumption, 2-3 servings a day Daily caffeine consumption, 2-3 servings a day -[facility] 250 DO Work Phone: Comment on above: 1-2 glasses of wine daily; Tobacco smoking status No Smokin g Status Entered [facility] Start: 05-06-2022 [facility] Start: 08-28-2023 Alcohol Comment daily [facility] Work Phone: Start: 1960 Sex Assigned At Not on file U [facility] Work Phone: Medical Equipment Procedure Code Equipment Code Equipment Origin al Text Equipment Identifier Dates [id number] FDA Start: 06-06-2019 FDA Start: 07-19-2019 FDA Start: 07-19-2019 Graft Bn Infs Rhbmp-2 5.6ml - [id number] Start: 12-07-2014 Graft Bn Canc 15 ml Allgrft - [id number] Start: 12-07-2014 Graft Bn Canc 15 ml Allgrft - [id number] Start: 12-07-2014 Graft Bn Canc 15 ml Allgrft - [id number] Start: 12-07-2014 Graft Infuse 14m m Small Bovine Collagen Rhbmp-2 23mm Bone Absorbable Sponge - [id number] Start: 08-16-2021 Grg-Oi-W-Kind Implant - [id number] Start: 12-07-2014 Comment on above: Description: C1713 P LATE JAZMIN SPNL Mak-Vs-Q-Kind Implant - [id number] Start: 12-07-2014 Comment on above: Description: C1713 S CREW BN 1.5MM 50MM Joj-Yr-Z-Kind Implant - [id number] Start: 12-07-2014 Comment on above: Description: C1769 W ZULY FIX KRSH SHRP CNN SPNL Cornell Jordana 3 Ti - [id number] Start: 12-07-2014 Xmt-Sq-K-Kind Implant - [id number] Start: 12-07-2014 Comment on above: Description: C1713 S CREKristie BN SPNL 5MM 25MM Fqz-Xg-A-Kind Implant - [id number] Start: 12-07-2014 Comment on above: Description: C1713 5 .0X20MM SCREW Jeh-Rm-Y-Kind Implant - [id number] Start: 12-07-2014 Comment on above: Description: 14MMX 2 2X30MM X 4 DEG VERTEBR Prolift Expandab le Spacer [id number] Start: 08-16-2021 Screw Jordana 3 Titanium Set Cornell Spine - [id number] Start: 08-16-2021 Lamonte Jordana 3 6mm Titanium 50mm Spinal Radiolucent - [id number] Start: 08-16-2021 Lamonte Jordana 3 6mm Titanium 70mm Spinal Radiolucent - [id number] Start: 08-16-2021 Screw Jordana 3 Serr olivia 6.5mm 50mm Bone Polyaxial Nonsterile Spine - [id number] Start: 08-16-2021 FDA Start: 07-19-2019 FDA Start: 07-19-2019 FDA Start: 07-19-2019 FDA Start: 07-19-2019 Graft Bone Sub 5 cc Dbm Inert Reverse Phase Carrier Gel Synthetic Osteosparx - [id number] Start: 12-31-2021 Graft Infuse 14m m Small Bovine Collagen Rhbmp-2 23mm Bone Absorbable Sponge - [id number] Start: 12-31-2021 Substitute Mastergraft Bone Graft Matrix Block Extension Void Filler 5ml - [id number] Start: 12-31-2021 Vargas Polyaxia l Screw 55mm X 8.5mm [id number] Start: 12-31-2021 Vargas Polyaxia l Screw 100mm X 8.5mm [id number] Start: 12-31-2021 Screw Jordana 3 Titanium Set Cornell Spine - [id number] Start: 12-31-2021 Lamonte Jordana 3 6mm Titanium 100mm Spinal - [id number] Start: 12-31-2021 Lamonte Jordana 3 6mm Titanium 80mm Spinal Radiolucent - [id number] Start: 12-31-2021 Screw 9.5mm 50mm Bone Revision Polyaxial Iliosacral - [id number] Start: 12-31-2021 KNEE WOUND I & D STATUS POST TOTAL KNEE Rafael Holley DO 07/19/19 Unknown Knee R FDA Start: 07-19-2019 KNEE WOUND I & D STATUS POST TOTAL KNEE Norm DORafael A 07/19/19 Unknown Knee R FDA Start: 07-19-2019 KNEE WOUND I & D STATUS POST TOTAL KNEE Norm DORafael A 07/19/19 Unknown Knee R FDA Start: 07-19-2019 KNEE WOUND I & D STATUS POST TOTAL KNEE Rafael Holley DO A 07/19/19 Unknown Knee R FDA Start: 07-19-2019 KNEE WOUND I & D STATUS POST TOTAL KNEE Rafael Holley DO 07/19/19 Unknown Knee R FDA Start: 07-19-2019 Pen [place] 31G X 5 MM Start: 08-06-2022 KNEE WOUND I & D STATUS POST TOTAL KNEE Rafael Holley DO 07/19/19 Unknown Knee R FDA Start: 07-19-2019 Goals Date Patient Goal Desired Activity /State Functional Status Date Assessment Result Facility 05-06-2022 Functional status Patient at Baseline [facility] Work Phone: Mental Status Date Assessment Result Facility 05-06-2022 Cognitive function Cognitive Sta tus Patient at Baseline [facility] Work Phone: Clinical Notes 07-17-2020 to 08-28-2023 Danisha Bran MD - 08/28/2023 10:50 AM ESTPatient Instructions Note Date & Type Note Facility 08-28-2023 History of Present illness Narrative Subjective Mary Jimenez is a 63 y.o. male Chief Complaint Follow-up HPI Patient is here for follow-up continue management for previous evaluation for chest pain suspected to be angina, hypertension, obesity, hyperlipidemia and previous history of stroke. Since last time I saw him he report he is feeling great. He denies any cardiac complaint of chest pain, palpitation, lightheadedness, dizziness or syncope. He report compliance with his medication. Recent laboratory data noted and reviewed with him. ASSESSMENT: 1. Episode of chest pain suspicious of angina. Last stress test 2 years ago was negative. Patient had excellent response to low-dose beta-cornell and nitrate. Has not had any chest pain since he was placed on medical therapy. He does have moderate to high risk for ischemic heart disease. No recurrence with excellent response to medical therapy I am still concerned about underlying ischemic heart disease 2. Hypertension, well controlled. 3. Obesity with mild gradual weight loss 4. Previous history of stroke with expressive aphasia has improved. 5. Hyperlipidemia controlled 6. Chronic back pain with multiple back surgeries RECOMMENDATIONS : 1. Discussed treatment option. The patient appears to be stable on current medical regimen. We discussed further work-up including invasive evaluation versus noninvasive and invasive assessment. We discussed cardiac catheterization or repeating stress test. Following lengthy discussion the patient elected to continue current therapy and elected for conservative and medical management. He will deferred stress test and a heart cath. He may consider that down the road if symptoms recur. 2. The patient was counseled regarding losing weight, exercise, and risk factor adjustment. 3. We will see him back in 8 months or earlier if the need arise. Patient was advised to notify me if he had any recurrence of his chest pain 5. I reviewed with patient his recent lab 4. Continue aggressive approach risk factor modification 5. I advised him to continue Plavix and stop aspirin Review of Systems All other systems reviewed and are negative. Vitals: 08/28/23 1101 BP: 110/66 BP Location: Left arm Patient Position: Sitting Pulse: 80 Weight: 127 kg (279 lb 9.6 oz) Height: 1.765 m (5' 9.5 ) Objective Physical Exam Constitutional: Appearance: Normal appearance. HENT: Nose: Nose normal. Neck: Vascular: No carotid bruit. Cardiovascular: Rate and Rhythm: Normal rate. Pulses: Normal pulses. Heart sounds: Normal heart sounds. Pulmonary: Effort: Pulmonary effort is normal. Abdominal: General: Bowel sounds are normal. Palpations: Abdomen is soft. Musculoskeletal: General: Normal range of motion. Cervical back: Normal range of motion. Right lower leg: No edema. Left lower leg: No edema. Skin: General: Skin is warm and dry. Neurological: General: No focal deficit present. Mental Status: He is alert. Psychiatric: Mood and Affect: Mood normal. Behavior: Behavior normal. Thought Content: Thought content normal. Judgment: Judgment normal. Allergies Penicillins and Latex Current Medications Current Outpatient Medications: albuterol (Ventolin HFA) 90 mcg/actuation inhaler, Use as directed, Disp: , Rfl: atorvastatin (Lipitor) 80 mg tablet, Take 1 tablet (80 mg) by mouth once daily at bedtime., Disp: , Rfl: b complex 0.4 mg tablet, As directed, Disp: , Rfl: baclofen (Lioresal) 20 mg tablet, Take 1 tablet (20 mg) by mouth 2 times a day., Disp: , Rfl: cholecalciferol, vitamin D3, (D3-50 CHOLECALCIFEROL ORAL), , Disp: , Rfl: chromium picolin,hist/minerals (CHROMIUM PICOLINAT,HISTID-MINS ORAL), 800 mcg take as directed, Disp: , Rfl: clopidogrel (Plavix) 75 mg tablet, Take 1 tablet (75 mg) by mouth once daily., Disp: , Rfl: dicyclomine (Bentyl) 20 mg tablet, Take 1 tablet (20 mg) by mouth 4 times a day., Disp: , Rfl: doxazosin (Cardura) 4 mg tablet, Take 1 tablet (4 mg) by mouth once daily., Disp: , Rfl: DULoxetine (Cymbalta) [address] capsule, Take 2 capsules (60 mg) by mouth once daily. Do not crush or chew., Disp: , Rfl: ferrous sulfate 325 (65 Fe) MG EC tablet, once daily. Do not crush, chew, or split., Disp: , Rfl: finasteride (Proscar) 5 mg tablet, Take 1 tablet (5 mg) by mouth once daily. Do not crush, chew, or split., Disp: , Rfl: fluticasone (Flonase) 50 mcg/actuation nasal spray, Administer 1 spray into each nostril once daily. Shake gently. Before first use, prime pump. After use, clean tip and replace cap., Disp: , Rfl: fremanezumab (Ajovy) 225 mg/1.5 mL prefilled syringe, 1.5 mL (225 mg) every 28 (twenty-eight) days., Disp: , Rfl: furosemide (Lasix) 40 mg tablet, Take 1 tablet (40 mg) by mouth once daily., Disp: , Rfl: isosorbide mononitrate ER (Imdur) 30 mg 24 hr tablet, TAKE ONE TABLET BY MOUTH DAILY, Disp: 90 tablet, Rfl: 3 magnesium oxide (Mag-Ox) 400 mg tablet, Take 1 tablet (400 mg) by mouth once daily., Disp: , Rfl: JOHANNE BIOTIN ORAL, Take 10,000 mcg by mouth once daily., Disp: , Rfl: metoprolol succinate XL (Toprol-XL) 50 mg 24 hr tablet, Take 1 tablet (50 mg) by mouth once daily. Do not crush or chew., Disp: , Rfl: multivitamin capsule, Take 1 capsule by mouth once daily., Disp: , Rfl: nitroglycerin (Nitrostat) 0.4 mg SL tablet, Take as directed, Disp: , Rfl: nortriptyline (Pamelor) 50 mg capsule, Take 1 capsule (50 mg) by mouth once daily., Disp: , Rfl: omega-3 fatty acids (FISH OIL CONCENTRATE ORAL), Take 1 tablet by mouth once daily., Disp: , Rfl: omeprazole (PriLOSEC) [address] capsule, Take 1 capsule (40 mg) by mouth once daily. Do not crush or chew., Disp: , Rfl: onabotulinumtoxinA (BOTOX INJ), Every 90 days, Disp: , Rfl: pancrelipase, Jnk-Fyku-Xjej, (Creon) 36,000-114,000- 180,000 unit capsule,delayed release(DR/EC) capsule, Take 1 capsule by mouth once daily., Disp: , Rfl: potassium chloride CR 20 mEq ER tablet, Take 1 tablet (20 mEq) by mouth once daily. Do not crush or chew., Disp: , Rfl: pregabalin (Lyrica) 200 mg capsule, Take 1 capsule (200 mg) by mouth 3 times a day., Disp: , Rfl: QUEtiapine (SEROquel) 25 mg tablet, Take 1 tablet (25 mg) by mouth. 2-3 times daily as needed, Disp: , Rfl: rizatriptan (Maxalt) 10 mg tablet, Take 1 tablet (10 mg) by mouth 1 time. At the onset of headache. May repeat ievery 2 hours as needed. Do not exceed 30 mg in 24 hours., Disp: , Rfl: rOPINIRole (Requip) 0.5 mg tablet, Take 1 tablet (0.5 mg) by mouth once daily., Disp: , Rfl: sildenafil (Viagra) 50 mg tablet, Take 1 tablet (50 mg) by mouth once daily. 1 hour before needed, Disp: , Rfl: testosterone cypionate (Depo-Testosterone) 200 mg/mL injection, Inject 1.5 mL (300 mg) into the muscle every 14 (fourteen) days., Disp: , Rfl: valACYclovir (Valtrex) 500 mg tablet, if needed., Disp: , Rfl: No medication list or bottles at visit today. Updated verbally with patient. Assessment/Plan 1. Angina pectoris (CMS/HCC) 2. Shortness of breath on exertion 3. Essential hypertension 4. Mixed hyperlipidemia 5. Morbid obesity (CMS/HCC) 6. Cerebrovascular accident (CVA), unspecified mechanism (CMS/HCC) 7. Never smoked any substance Scribe Attestation By signing my name below, Iangelitorleticlfelicity , Scrjudithe attest that this documentation has been prepared under the direction and in the presence of Danisha Bran MD. Provider Attestation - Scribe documentation All medical record entries made by the Scribe were at my direction and personally dictated by me. I have reviewed the chart and agree that the record accurately reflects my personal performance of the history, physical exam, discussion and plan. documented in this encounter [facility] Work Phone: 08-28-2023 Instructions Mary Webster LPN - 08/28/2023 10:50 AM EST Please bring all medicines, vitamins, and herbal supplements with you when you come to the office. Prescriptions will not be filled unless you are compliant with your follow up appointments or have a follow up appointment scheduled as per instruction of your physician. Refills should be requested at the time of your visit. BMI was above normal measurement. Current weight: 127 kg (279 lb 9.6 oz) Weight change since last visit (-) denotes wt loss -4.4 lbs Weight loss needed to achieve BMI 25: 108.2 Lbs Weight loss needed to achieve BMI 30: 73.9 Lbs Provided instructions on dietary changes Provided instructions on exercise. documented in this encounter [facility] Work Phone: 08-19-2023 Procedure note [facility] 07-30-2023 Evaluation note Encounter Date Diagnosis Assessment Notes Jul, Acute recurrent sinusitis, unspecified location (ICD-10 - J01.91) Discussed he did the right thing initially treating this is viral. Because of the duration now we will add Bactrim DS and treat as bacterial, Sinusitis home care material was published Jul, Chronic allergic rhinitis (ICD-10 - J30.9) Continue Flonase nasal spray long-term, Allergic rhinitis home care material was published Jul, Chronic rhinitis (ICD-10 - J31.0) We again discussed he is again addicted to Afrin/deconge stant nasal spray. Strongly stressed that he needs to completely stop. We will prescribe Medrol Dosepak. He can double up on the Flonase for a week or 2 if needed and also use lots of saline nasal spray as needed., Pharyngitis/t onsillopharyn gitis: adult home care material was published Jul, Adverse effect of other [id number] d drugs, initial encounter (ICD-10 - T48.5X5A) See dictation above Jul, Other RTO as needed [facility] Other 01-24-2024 Evaluation note* Encounter Date Diagnosis Assessment Notes Treatment Notes Treatment Clinical Notes Jun, Obesity, unspecified classification, unspecified obesity type, unspecified whether serious comorbidity present (ICD-10 - E66.9) Jun, Other Summary of Visi t: (A) Group discussion w/ topic of Healthy Eating on a Budget (B) Discussed tips for before, during and after grocery shopping to save money (C) discussed specific budget friendly foods and recipes, repurposing leftovers (D) Group offered moral support to one another Patient set the following goals: - not reviewed today [facility] Other 01-18-2024 Evaluation note* Encounter Date Diagnosis Assessment Notes Treatment Notes Treatment Clinical Notes Jun, Diarrhea (ICD-10 - R19.7) Patient reports that he has had diarrhea for the past few months that he is now taking OTC Imodium for with improvement, but does get constipated Patient is currently taking Ozempic Patient is advised to have a colonoscopy to rule out colitis Jun, Fatty liver (ICD-10 - K76.0) Patient is advised to get a fibro scan and liver ultrasound Jun, Other Patient is intrested in having the Rep[employer] system done, and will schedule a consult appointment with Dr. Salazar [facility] Other 01-15-2024 Evaluation note* Encounter Date Diagnosis Assessment Notes Treatment Notes Treatment Clinical Notes Jun, Prediabetes (ICD-10 - R73.09) Jun, BMI 40.0-44.9, adult (ICD-10 - Z68.41) Jun, Mixed hyperlipidemia (ICD-10 - E78.2) Jun, Diarrhea (ICD-10 - R19.7) Jun, Essential (primary) hypertension (ICD-10 - I10) Jun, Obstructive sleep apnea (ICD-10 - G47.33) Jun, P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) Jun, Knee osteoarthritis (ICD-10 - M17.9) Jun, Metabolic syndrome X (ICD-10 - E88.81) Jun, Colon polyps (ICD-10 - K63.5) [facility] Other 01-09-2024 Evaluation note* Encounter Date Diagnosis Assessment Notes Treatment Notes Treatment Clinical Notes Jun, Obesity, unspecified classification, unspecified obesity type, unspecified whether serious comorbidity present (ICD-10 - E66.9) Jun, BMI 40.0-44.9, adult (ICD-10 - Z68.41) Jun, Other Summary of Visi t: (A) Overview of what the gut consists of (stomach, intestines) (B) Gut microbiome (C) How nutrition, exercise, sleep, and stress impact gut health (D) Probiotics and Prebiotics [facility] Other 12-21-2023 Evaluation note* Encounter Date Diagnosis Assessment Notes Treatment Notes Treatment Clinical Notes May, Obesity, unspecified classification, unspecified obesity type, unspecified whether serious comorbidity present (ICD-10 - E66.9) May, BMI 40.0-44.9, adult (ICD-10 - Z68.41) May, Other Summary of Visi t: (A) Reviewed the plate method (B) Discussed reducing daily Imodium (C) Emphasized finding consistency in balanced, healthy eating [facility] Other 11-02-2023 Evaluation note* Encounter Date Diagnosis Assessment Notes Treatment Notes Treatment Clinical Notes Apr, Obesity, unspecified classification, unspecified obesity type, unspecified whether serious comorbidity present (ICD-10 - E66.9) Apr, BMI 40.0-44.9, adult (ICD-10 - Z68.41) Apr, Other Summary of Visi t: (A) Reviewed the plate method and discussed how various meals fit into it (B) Discussed finding control over food and grocery store decision-making (C) Emphasized finding alternative measures of success outside of scale weight [facility] Other 10-19-2023 Evaluation note* Encounter Date Diagnosis Assessment Notes Treatment Notes Treatment Clinical Notes Mar, Prediabetes (ICD-10 - R73.09) Mar, Body mass index (BMI ) of 45.0-49.9 in adult (ICD-10 - Z68.42) Mar, Mixed hyperlipidemia (ICD-10 - E78.2) Mar, Essential (primary) hypertension (ICD-10 - I10) Mar, Obstructive sleep apnea (ICD-10 - G47.33) Mar, Diarrhea (ICD-10 - R19.7) Mar, P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) Mar, Knee osteoarthritis (ICD-10 - M17.9) Mar, Metabolic syndrome X (ICD-10 - E88.81) Mar, Colon polyps (ICD-10 - K63.5) [facility] Other 10-10-2023 Evaluation note* Encounter Date Diagnosis Assessment Notes Treatment Notes Treatment Clinical Notes Mar, Acute non-recurrent sinusitis of other sinus (ICD-10 - J01.80) We discussed he clearly is having some seasonal flare of his allergic rhinitis. He has symptoms year-round but states it gets better in the winter. He also has recurrent OTC decongestant nasal spray addiction. I also suspect he has a component of acute sinusitis. Continue Flonase and saline nasal spray. The importance of again stopping decongestant nasal spray was stressed. To help him do so we will give him a Medrol Dosepak. We again discussed he has had many steroids over the years and we need to have caution about using steroids too often. He does not feel he can get off the decongestant nasal spray without oral steroids., Sinusitis (sinus infection) material was published Mar, Chronic allergic rhinitis (ICD-10 - J30.9) See dictation above Mar, Other RTO as schedule d and sooner as needed [facility] Other 09-05-2023 Evaluation note* Encounter Date Diagnosis Assessment Notes Treatment Notes Treatment Clinical Notes Feb, Nausea (ICD-10 - R11.0) [facility] Other 08-17-2023 Evaluation note* Encounter Date Diagnosis Assessment Notes Treatment Notes Treatment Clinical Notes Jan, Prediabetes (ICD-10 - R73.09) Jan, Body mass index (BMI ) of 45.0-49.9 in adult (ICD-10 - Z68.42) Jan, Mixed hyperlipidemia (ICD-10 - E78.2) Jan, Essential (primary) hypertension (ICD-10 - I10) Jan, Obstructive sleep apnea (ICD-10 - G47.33) Jan, P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) Jan, Knee osteoarthritis (ICD-10 - M17.9) Jan, Metabolic syndrome X (ICD-10 - E88.81) [facility] Other 08-08-2023 Evaluation note* Encounter Date Diagnosis Assessment Notes Treatment Notes Treatment Clinical Notes Jan, Chronic rhinitis (ICD-10 - J31.0) [facility] Other 07-13-2023 Evaluation note* Encounter Date Diagnosis Assessment Notes Treatment Notes Treatment Clinical Notes Dec, Obesity, unspecified classification, unspecified obesity type, unspecified whether serious comorbidity present (ICD-10 - E66.9) Dec, BMI 40.0-44.9, adult (ICD-10 - Z68.41) Dec, Other Summary of Visi t: (A) Reviewed plate method (B) Discussed options for reducing alcohol intake (C) Discussed options available at the store that better support goals [facility] Other 06-22-2023 Evaluation note* Encounter Date Diagnosis Assessment Notes Treatment Notes Treatment Clinical Notes Nov, Acute non-recurrent sinusitis, unspecified location (ICD-10 - J01.90) He is clearly having a summer allergy flare but it also sounds like he has a secondary acute sinusitis superimposed. Continue his usual Benadryl p.o. and daily Flonase nasal spray. We will also add Bactrim DS as prescribed. RTO as needed. He has had symptoms long enough that I do not think there is value in doing a COVID test., Sinusitis (sinus infection) material was published Nov, Chronic allergic rhinitis (ICD-10 - J30.9) See dictation above, Reducing environmental allergens material was published Nov, Other RTO as needed [facility] Other 06-20-2023 Evaluation note* Encounter Date Diagnosis Assessment Notes Treatment Notes Treatment Clinical Notes Nov, Prediabetes (ICD-10 - R73.09) Nov, Body mass index (BMI ) of 45.0-49.9 in adult (ICD-10 - Z68.42) Nov, Mixed hyperlipidemia (ICD-10 - E78.2) Nov, Essential (primary) hypertension (ICD-10 - I10) Nov, Obstructive sleep apnea (ICD-10 - G47.33) Nov, P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) Nov, Knee osteoarthritis (ICD-10 - M17.9) Nov, Metabolic syndrome X (ICD-10 - E88.81) [facility] Other 06-06-2023 Evaluation note* Encounter Date Diagnosis Assessment Notes Treatment Notes Treatment Clinical Notes Nov, Essential (primary) hypertension (ICD-10 - I10) [facility] Other 05-30-2023 NoteCONSULTATION CONSULTATION DATE: 11/25/2022 TO: Jose Ray D.O. CHIEF COMPLAINT: Includes severe left sided low back pain, hip pain. HISTORY: He rates the pain as being 5-7/10 pain, sharp in character, increased with activities such as standing, walking and performing transitioning maneuvers. He feels most comfortable in the semi-recumbent position. Denies any change in bowel and bladder habits or new sensorimotor changes in the lower extremities. EXAMINATION: Notable for patient having no clinical myelopathy involving his lower extremities. However, he did have severe pain with lumbar facet loading maneuvers on the left side at L1-2 and L2-3. He is fused from L4 through S1 posteriorly. He also had severe myofascial spasm of the lumbar paravertebral muscles, occurring bilaterally, worse on the left side than the right side, involving his erector spinae. 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 RECOMMENDATIONS: I have recommended he undergo lumbar spine flexion/extension films to check the integrity of the fusion construct and proceed with a diagnostic left sided L1-2, L2-3 facet joint injection under fluoroscopic guidance. I have increased his baclofen half a pill to one pill t.i.d. I have reduced his use of [place] 5 mg pills t.i.d. to b.i.d., 80 pills to last him one month's time at his next refill, and to proceed with an EMG/nerve conduction velocity study for his bilateral lower extremities. As part of providing excellent, safe, comprehensive care, the following was completed at our patient's visit: 1. A medication reconciliation and review to ensure accurate knowledge of current/active medications, including asking our patients to inform us about any wovv-tjj-spdsitt medications or herbal remedies/nutritional supplements/alternative remedies. 2. A review to specifically ensure our patients have had annual screening for: elevated body mass index (BMI, see intake chart for exact total), tobacco use, screening for depression, and screening for unhealthy alcohol use. When screening is concerning, patients are provided with education and the specific recommendation to discuss the concerning health issue and treatment options with their primary care provider.[facility] [id number] Note CONSULTATION PROCEDURE DATE: 11/04/2022 PROCEDURE: Right hamstring trigger point injection. PREOPERATIVE DIAGNOSIS: Pain secondary to myofascial spasm right hamstring, lateral belly. POSTOPERATIVE DIAGNOSIS: Pain secondary to myofascial spasm right hamstring, lateral belly. IMMEDIATE COMPLICATION: None. SOLUTION USED FOR INJECTION: 2 mL of 2% lidocaine, 2 mL of 0.25% Marcaine and 10 mg of Kenalog a total of 5 mL and 2.5 mL used for the injection at the site. PROCEDURE: After informed consent was obtained from the patient, placed in the left lateral decubitus position. Skin overlying the area was prepped with alcohol. A 25 gauge, 1 1/2 inch needle was inserted into the lateral belly of the right hamstring, at approximately 6 cm cephalad from the interepicondylar line. The needle was inserted I this area, advanced until there was a twitch response of the right hamstring. At which point, there was no indication of intravascular or intraneural needle tip placement. 2 mL of solution was injected. No indication of intravascular or intraneural injection was noted. Post procedure, needle was removed. He reports reduction of pain symptoms by at least 70%.[facility] [id number] Evaluation note* Encounter Date Diagnosis Assessment Notes Treatment Notes Treatment Clinical Notes October, Prediabetes (ICD-10 - R73.09) October, Body mass index (BMI ) of 45.0-49.9 in adult (ICD-10 - Z68.42) October, Mixed hyperlipidemia (ICD-10 - E78.2) October, Essential (primary) hypertension (ICD-10 - I10) October, Obstructive sleep apnea (ICD-10 - G47.33) October, P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) October, Knee osteoarthritis (ICD-10 - M17.9) October, Metabolic syndrome X (ICD-10 - E88.81) [facility] Other 04-25-2023 Evaluation note* Encounter Date Diagnosis Assessment Notes Treatment Notes Treatment Clinical Notes Sep, Obesity, unspecified classification, unspecified obesity type, unspecified whether serious comorbidity present (ICD-10 - E66.9) Sep, BMI 40.0-44.9, adult (ICD-10 - Z68.41) Sep, Other Summary of Visi t: (A) Presentation of Plate Method discussed (B) Sample meal ideas reviewed (C) exercise recommendations reviewed Patient set the following goals: - patient set personal goal using given handout. 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 At this juncture we have discussed the findings and diagnosis as well as personally reviewed appropriate imaging and performed interpretation of related testing and examination with the patient in office today. Today we have discussed either proceeding with an MRI or an EMG. He has some prior nerve issues so we will move forward with an EMG at this time. I will plan to see him after her EMG is completed for further recommendations The patient has been involved in our cooperative treatment plan and agrees to move forward with treatment at this time. Sep, Ulnar neuropathy of left upper extremity (ICD-10 - G56.22) We will order EMG for further evaluation and treatment options. [facility] Other 04-13-2023 Evaluation note* Encounter Date Diagnosis Assessment Notes Treatment Notes Treatment Clinical Notes Sep, Left elbow pain (ICD-10 - M25.522) Dr. Ellis felt he had left medial elbow epicondylitis. Clinically today I think he has both lateral and medial epicondylitis. I reviewed the Dr. Ellis note with the patient that he wanted to see him back to discuss elbow cortisone shot, possible surgery if Medrol Dosepak did not work. He will call Dr. Ellis directly to schedule follow-up, Elbow pain home care material was published Sep, Microcytosis (ICD-10 - R71.8) We discussed his iron is low normal but his iron stores are low, he has elevated reticulocyte count suggesting he is trying to make blood. He has childhood history of iron deficiency anemia, does not eat red meat now. Therefore we will start him on ferrous sulfate and recheck CBC and iron studies next visit. If he does not improve (or even if he does) we will discuss whether we need to also do GI work-up to look for possible rectal bleeding. Based on his history this may be chronic and dietary. Sep, Orthostasis (ICD-10 - I95.1) He is likely having mild orthostatic hypotension as a result of adding Imdur by [facility]. Orthostatic fall precautions discussed. When he gets up he should wait and not walk away if he is dizzy. If he does not do well, we may need to reduce some of his other BP medications. Call if not doing well, Orthostatic hypotension home care material was published Sep, Essential (primary) hypertension (ICD-10 - I10) Stable on current meds Sep, Osteoarthritis of spine with radiculopathy, lumbosacral region (ICD-10 - M47.27) He has failed chronic back pain syndrome, failed surgery. He will continue with Dr. Brewer. Discussed I am not a pain specialist but I think that a trial of tizanidine instead of baclofen is reasonable. I also discussed that, although it is not my specialty to decide whether it is right for him, a spinal stimulator is a legitimate mainstream therapy. He will continue with pain management Sep, Mixed hyperlipidemia (ICD-10 - E78.2) Stable, appropriate statin dose, Cholesterol-loweri ng diet material was published Sep, Stroke (ICD-10 - I63.9) Doing well post distant stroke likely optimal baseline Sep, Insomnia (ICD-10 - G47.00) Discussed tizanidine may help his chronic insomnia. He does use CPAP for sleep apnea. He has failed multiple sleep medications Sep, Functional dyspepsia (ICD-10 - K30) Stable on omeprazole Sep, Morbid obesity (ICD-10 - E66.01) He is now on Ozempic and excited he is started to lose some weight. He will continue with Dr. Holbrook at the bariatric clinic Sep, Impaired glucose tolerance (ICD-10 - R73.02) Risk of diabetes discussed. He has not been on Ozempic long enough to knock down his hemoglobin A1c further. We will follow Sep, Adjustment disorder with mixed anxiety and depressed mood (ICD-10 - F43.23) Stable chronic baseline on current meds. States mood good Sep, Migraine without status migrainosus, not intractable, unspecified migraine type (ICD-10 - G43.909) He did not complain of migraines today. [facility] with [facility] Sep, Renal failure, unspecified chronicity (ICD-10 - N19) Discussed renal failure mild and stable. Will monitor Sep, Other RTO 6 months preceded by fasting CBC, BMP, hepatic panel, lipid profile, hemoglobin A1c, iron, ferritin, reticulocyte count and sooner as needed. I repeated full lab panel because of his medical complexity. [facility] Other 04-13-2023 NoteCONSULTATION CONSULTATION DATE: 10/09/2022 TO: Jose Ray D.O. HISTORY: Patient was seen today complaining of pain in multiple areas; includes pain in his lower extremities bilaterally, more significant on the right side. However, he reports he has more weakness on his left side. In general, the pain seems to increase with activity such standing, walking and performing transitioning maneuvers. He feels most comfortable in the semi-recumbent position. He denies any change in bowel and bladder habits. He reports progressive weakness and numbness in his lower extremities, mainly on the right side. Again, he describes more pain on right, but he describes more weakness in the left lower extremity. EXAM: Notable for the patient having hypoesthesia along the L5 dermatome bilaterally. However, he did have dysesthesia along the distribution of the right L5 dermatome. He had severe myofascial spasm of the right hamstring as well. IMPRESSION: Our impression is patient with chronic pain secondary to post laminectomy syndrome, complicated by radiculopathy and myofascial dysfunction involving the right hamstring. RECOMMENDATIONS: I have recommended the patient consider discontinuing baclofen secondary to ineffectiveness. We will trial him on tizanidine 4 mg pills, half a pill to one pill t.i.d. and to continue with his Lyrica. He does report the Posen is quite helpful and improves his quality of life, level of function and sleep pattern. He denies any side effects. We will obtain urine toxicology screen and proceed with obtaining approval for a right hamstring trigger point injection in the office. As part of providing excellent, safe, comprehensive care, the following was completed at our patient's visit: 1. A medication reconciliation and review to ensure accurate knowledge of current/active medications, including asking our patients to inform us about any [id number] medications or herbal remedies/nutritional supplements/alternative remedies. 2. A review to specifically ensure our patients have had annual screening for: elevated body mass index (BMI, see intake chart for exact total), tobacco use, screening for depression, and screening for unhealthy alcohol use. When screening is concerning, patients are provided with education and the specific recommendation to discuss the concerning health issue and treatment options with their primary care provider.[facility] [id number] Evaluation note * Encounter Date Diagnosis Assessment Notes Treatment Notes Treatment Clinical Notes Sep, Impaired glucose tolerance (ICD-10 - R73.02) [facility] Other 03-29-2023 Evaluation note* Encounter Date Diagnosis Assessment Notes Treatment Notes Treatment Clinical Notes Aug, Medial epicondylitis of left elbow (ICD-10 - M77.02) Mary presents with medial epicondylitis. At this juncture we have discussed the findings and diagnosis as well as personally reviewed appropriate imaging and performed interpretation of related testing and examination with the patient in office today. Prior medical notes from Dr. Ray and history have been reviewed. At this time I would recommend Medrol Dosepak which we have ordered today. We will plan for follow-up 2 to 3 weeks if not improved. The patient has been involved in our cooperative treatment plan and agrees to move forward with treatment at this time. Aug, Other AP and later al x-rays of the left elbow were obtained. There are normal bony structures without evidence of destructive lesion or fracture. Alignment of the joint is normal. There is edema and tenderness at the site. Patient complains of tingling sensation to the fingers of the left hand. This appears to be medial epicondylitis. We discussed all treatment options including gentle stretching and strength exercise as pain allows, use of non-steroidal anti-inflammatory medication, formal physical therapy as well as cortisone injection and surgical release. I will order a oral steroid taper for inflammation. Patient voices understanding and is agreeable to treatment plan. We will continue to monitor. [facility] Other 03-23-2023 Evaluation note* Encounter Date Diagnosis Assessment Notes Treatment Notes Treatment Clinical Notes Aug, Left arm swelling (ICD-10 - M79.89) Aug, Left arm pain (ICD-10 - M79.602) [facility] Other 03-20-2023 Evaluation note* Encounter Date Diagnosis Assessment Notes Treatment Notes Treatment Clinical Notes Aug, Pain in left elbow (ICD-10 - M25.522) [facility] 02-27-2023 Evaluation note* Encounter Date Diagnosis Assessment Notes Treatment Notes Treatment Clinical Notes Jul, Prediabetes (ICD-10 - R73.09) Jul, Body mass index (BMI ) of 45.0-49.9 in adult (ICD-10 - Z68.42) Jul, Mixed hyperlipidemia (ICD-10 - E78.2) Jul, Essential (primary) hypertension (ICD-10 - I10) Jul, Obstructive sleep apnea (ICD-10 - G47.33) Jul, P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) Jul, Knee osteoarthritis (ICD-10 - M17.9) Jul, Metabolic syndrome X (ICD-10 - E88.81) [facility] Other 02-24-2023 Evaluation note* Encounter Date Diagnosis Assessment Notes Treatment Notes Treatment Clinical Notes Jul, Obesity, morbid, BMI 40.0-49.9 (ICD-10 - E66.01) We did have a long talk that he has morbid obesity and I strongly recommend weight loss. Discussed his weight is clearly affecting his health. I did discuss that the treatment of obesity is complex and that I do not do bariatric medications. I do think he should see medical bariatrics and it is not a bad idea to also get a surgical bariatric consult. After discussion, he is going to call the [facility] bariatric clinic back and get his canceled appointment with Dr. Holbrook rescheduled. Discussed insurance companies often do not pay for bariatric care including Ozempic or other weight loss drugs. I do not know whether Dr. Holbrook will have other suggestions. The patient is on other medications that can cause weight gain but I also think he probably medically needs them because of his medical complexity. We discussed it can also be difficult to get insurance to cover bariatric surgery. Also discussed this not done locally. Discussed insurances require a process including failed medical attempts at weight loss, psychiatric evaluation. He did request referral and would prefer the [facility] or in [place]. I will have my staff refer him to the [facility] for a bariatric surgery consult. , Staying motivated while on a weight loss plan material was published Jul, Lumbar back pain with radiculopathy affecting left lower extremity (ICD-10 - M54.16) Continue with Dr. Ochoa., Lumbar radiculopathy home care material was published Jul, Other RTO as schedule d and sooner as needed or pending above Please send today's EMR note to the bariatric surgery consult appointment [facility] Other 02-14-2023 NotePAIN MANAGEMENT CONSULTATION CONSULTATION DATE: 08/12/2022 Jose Ray D.O. [address], [place] [address] Dear Jose: Regarding our patient in common, Mr. Mary Ojeda, I believe that the patient, with regards to his pain pathology, would improve substantially should he be able to aggressively lose some weight. Toward that effect, I believe the patient would benefit from continuous glucose monitoring and the possibility of the addition of a medication such as Ozempic along with chromium picolinate. A significant nguyễn talking was done by myself to Yanelis Garnica M.D. /[facility]02-14-2023 NotePAIN MANAGEMENT CONSULTATION CONSULTATION DATE: 08/12/2022 CHIEF COMPLAINT: Right leg pain, tailbone pain. HISTORY OF PRESENT ILLNESS: This is a 62-year-old gentleman, who recently had a revision of his lumbar fusion by Dr. Cochran on December 31. The patient states, subsequent to that, the patient continued to have the pain, and especially pain radiating into his leg. Laying down on the back mitigates the pain as does sitting. Increased housework, lifting, bending, climbing stairs, ADLs, activities, cold weather aggravate the patient's pain. The patient cannot take NSAIDs due to renal dysfunction. The patient takes baclofen 20 mg h.s., Lyrica 200 mg t.i.d. which is a very high dose. We have educated the patient as to decreasing this. The patient takes Posen 5/325 b.i.d. The patient is requesting it to be increased to q.i.d. He states he needs two tablets to be able to get out of bed. Mirapex 0.25 mg, nortriptyline, Plavix. The patient also is taking testosterone IM. The patient's PAST MEDICAL HISTORY / SURGICAL HISTORY / REVIEW OF SYSTEMS are noted on the chart, along with the MEDICATION LIST / ALLERGIES and RADIOLOGICAL IMAGES. Of note is the fact today's visit was more of educational and counseling, given the patient's own contribution to his pathology. PHYSICAL EXAMINATION: VITAL SIGNS: 97/61 with a heart rate of 66. At a height of 5'9 , the patient weighs 135 kg. HEAD: Atraumatic. NECK: Bullous. HEART: Negative orthopnea. LUNGS: Negative dyspnea. ABDOMEN: Protuberant, distended. BACK: The patient has tenderness. The patient also has a significant, non-physiological jump response along the right sciatic notch. EXTREMITIES: Vasomotor changes are noted. The patient has waxy skin in his lower extremities. MUSCULOSKELETAL: Quality of the musculature is poor. The patient ambulates using a cane. PSYCHIATRICALLY: Affect is appropriate; however, the patient is focused with regards to his medication. DIAGNOSIS: Current working diagnosis on the patient is: 1. Morbid obesity. 2. Status post lumbar surgery revision, December 31, 2021. 3. Sedentary lifestyle. PLAN: We have instructed the patient that the patient needs to take a significantly more aggressive and more active role in his wellness. To this effect, the patient has been suggested aquatics. We strongly recommend the patient, who has tried multiple diet controls in the past, to consider the possibility of glucose monitoring with concomitant use of Ozempic to help him shed some weight and help with the decompression and mechanical compression in his low back. I believe this is paramount for the patient to be able to improve his quality of life. We have instructed him that we will not be increasing his narcotics, Posen 5/325 on a b. i.d. and have recommended he decrease the Lyrica. The patient will be followed up in the office in two months. CC: Jose Ray D.O.[facility] [id number] Evaluation note* Encounter Date Diagnosis Assessment Notes Treatment Notes Treatment Clinical Notes Jul, Prediabetes (ICD-10 - R73.09) Ozempic was denied by insurance as patient does not have diabetes this is not a covered medication. We will attempt to get Jassi covered with a diagnosis of prediabetes, cardiovascular risk factor since he had a stroke and needs better glucose control in addition to weight loss. Jul, Heart disease (ICD-10 - I51.9) Jul, Stroke (ICD-10 - I63.9) Jul, Cardiovascular risk factor (ICD-10 - Z91.89) [facility] Other 01-20-2023 Evaluation note* Encounter Date Diagnosis Assessment Notes Treatment Notes Treatment Clinical Notes Jun, Obesity (ICD-10 - E66.9) Findings consistent with obesity. Patient understands that this increases risk of multiple comorbidities associated with weight gain especially if there is a genetic predisposition. Discussed the complexity behind obesity and its multifactorial causes including genetics, the biological changes that occur with processed foods as well as lack of physical activity. We will assess for underlying causes of abnormal weight gain including thyroid dysfunction, poor sleep, medications, diet, etc. Discussed importance of adopting a healthier lifestyle in order to decrease or eliminate risk of impending diseases associated with excessive weight. initial goal of modest weight loss approximately 3 to 5% can help to improve risk factors and some comorbidities. Our second goal of 10 to 15% weight loss can result in even more potentially disease modifying, remission or improved mortality benefits. Initial goals patient to connect with dietitian and work closely for dietary changes individualized 5 and 10-minute healthy meal handout given to patient. Encouraged to decrease wine intake and increase water intake Encouraged to vary diet and increase vegetable intake in addition to protein. Strongly encourage sleep hygiene and avoiding watching TV in bed and using bed for sleep only. Encouraged to shoot for an average of 6 to 7 hours of quality sleep and going to bed between 10 and 1030. Jun, Daytime sleepiness (ICD-10 - R40.0) Encouraged good sleep hygiene by going to bed at approximately the same time each night and similar waking hours each day, not eating too close to bedtime, avoid excessive fluids and eating shortly before bed, turning off blue light on phone/computers, silencing notifications, etc. Fatigue during the day could also be related to blood sugar spikes and subsequent crashes related to poor dietary habits of high glucose or high carbohydrate meals and snacks. Increase water intake. Jun, Depression (ICD-10 - F32.9) PHQ-9 is positive for moderate to severe depression with a score of 15 and treatment program.. Patient states mood is stable overall today and denies any significant mood swings or depressive thoughts. We would use extreme caution or avoid medications for weight loss including Qsymia, phentermine due to possibility of worsening depression. Discussed this with patient when evaluating for appropriate medication. Jun, Anxiety (ICD-10 - F41.9) Jun, GERD (gastroesophageal reflux disease) (ICD-10 - K21.9) Patient has a history of GERD as well as some dysplasia identified on EGD. He does follow with gastroenterology.Tr eat with weight loss and dietary changes. With weight loss patient could achieve complete relief from GERD symptoms due to increased intraabdominal pressure with the goal of being weaned off of medication. Patient to work closely with dietitian to help make healthy dietary choices and avoid reflux inducing foods. Briefly discussed these including avoiding citrus, high fat dairy, high fat meats and beverages including alcohol and coffee. Jun, Migraine (ICD-10 - G43.909) Migraines are nearly a weekly basis despite Botox and Ajovy. He follows closely with neurology and is on several medications. He states his migraines started when he had a stroke. Jun, Impaired glucose tolerance (ICD-10 - R73.02) Jun, Obstructive sleep apnea (ICD-10 - G47.33) Patient has had sleep study and diagnosis of sleep apnea with compliance of CPAP. Patient understands that sleep apnea significantly increases risk of cardiac issues as well as hypertension, daytime fatigue and brain fog among others. Educated that CPAP compliance is of utmost importance to help prevent related comorbidities. Treat with weight loss with a goal of no longer needing a CPAP device. Jun, Stroke (ICD-10 - I63.9) He has a history of a brainstem stroke but he does not not have a lot of residual disability today he had intense physical therapy was able to regain strength of the 1 side of his body that became weak back in 2013. He is disabled due to the stroke however he does have some issues with word finding in office today. 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 We will monitor throughout the course of program and he should have improvement with adequate lifestyle change and weight loss. Discussed etiology of hyperlipidemia. Treat with decreasing the simple sweets, added sugars, refined starches and bad fats. Encouraged increased activity and exercise and continue long-term weight loss goals. Jun, Kidney stones (ICD-10 - N20.0) Jun, Hypertension (ICD-10 - I10) Patient has history of hypertension. Blood pressure reading within normal limits today. Treat with low-salt diet, decreased processed and restaurant foods, healthy lifestyle changes and achieve long-term weight loss. Encouraged to monitor outside of the office setting. Encouraged to work with dietitian closely for both weight loss and hypertension focused diet. We discussed how just 5 to 10% modest weight loss can help improve blood pressure. Treat with weight loss and goal of decreasing or eliminating BP medications as appropriate. Jun, Chronic pain (ICD-10 - G89.29) Patient admits to arthritis pain pain likely exacerbated/seconda ry to increased weight. Treat with exercise incorporating low impact exercises or modifications as needed. Advised to that there are multiple different exercise programs available many of which can be done within the home that required little to no impact. Encouraged swimming as feasible. Slowly increase activity over time to reach goal of 30 minutes most days of the week. Encouraged to take advantage of circular knife machine cutter available at [facility] that can help work around limitations. He does have a significant amount of chronic pain for which she works with pain management with. He does have prescriptions for opioid pain medications Per [facility] report. He is also on some weight positive medications for pain including nortriptyline, quetiapine etc. We will evaluate risk versus benefit as we navigate weight loss Jun, Heart disease (ICD-10 - I51.9) Jun, Snores (ICD-10 - R06.83) [facility] Other 01-05-2023 NoteHNO ID: [id number] Author: Christy Cat PA-C Service: ? Author Type: Physician Stamp Analyst Type: Progress Notes Filed: 07/03/2022 11:38 AM Note Text: SPINE SURGERY ESTABLISHED This is a virtual visit using [employer] video visit. It required patient-provider interaction for the medical decision making as documented below. DATE OF SERVICE: 07/03/2022 DATE OF LAST VISIT: 04/21/2022 SUBJECTIVE: HPI:Mary Jimenez is a 62 year old male presenting alone. Underwent revision L4-pelvis instrumented fusion on 12/31/21. Has been going to PT, but PT says patient is not making improvements. The patient prefers walking, states PT causes him pain. He has been going to [place] to try massage beds, would like to try stationary bike. He has been following up with local pain management doctor. Incision appears to be healing well, denies drainage or signs of infection. Recent lumbar MRI shows post operative soft tissue fluid collection. REVIEW OF SYSTEMS: GENERAL: No weight loss or malaise MUSCULOSKELETAL: Negative for joint pain, swelling or muscle pain NEURO: No history of headaches, syncope, paralysis, seizures or tremors MEDICATIONS: methylPREDNISolone (MEDROL DOSE-PACK) 4 mg Dose-Pack As Instructed per package Pregabalin (LYRICA) 200 mg capsule Take 1 capsule by mouth three times daily for 90 days. ibuprofen (MOTRIN) 800 mg tablet Take 1 tablet by mouth every 8 hours as needed for pain. QUEtiapine (SEROQUEL) 25 mg tablet TAKE ONE TABLET BY MOUTH EVERY NIGHT AT BEDTIME lactobacillus combination no.4 3 billion cell cap Take 1 capsule by mouth once daily. clopidogrel (PLAVIX) 75 mg tablet Take 1 tablet by mouth once daily. Please hold this medication until post op day 10 telmisartan (MICARDIS) 80 mg tablet Take 80 mg by mouth once daily. docusate sodium (COLACE) 100 mg capsule Take 1 capsule by mouth twice daily. docosahexaenoic acid/epa (FISH OIL ORAL) Take 5 capsules by mouth once daily. fremanezumab-vfrm (AJOVY SYRINGE SUBCUTANEOUS) Inject 250 mg/mL subcutaneously. every 28 days for migraines CHROMIUM PICOLINATE ORAL Take 800 mcg by mouth once daily. MAGNESIUM ORAL Take 400 mg by mouth once daily. finasteride (PROSCAR) 5 mg tablet Take 5 mg by mouth daily at bedtime. CALCIUM CARBONATE/VITAMIN D3 (CALCIUM 600 + D ORAL) Take 1 tablet by mouth once daily. LACTOBACILLUS ACIDOPHILUS (PROBIOTIC ACIDOPHILUS ORAL) Take 1 capsule by mouth once daily. doxepin capsule 10 mg Take 10 mg by mouth daily at bedtime. Takes 2 tabs at bedtime dicyclomine (BENTYL) 10 mg capsule Take 20 mg by mouth as needed. 4 times daily as needed eletriptan (RELPAX) 40 mg tablet Take 40 mg by mouth as needed. may repeat in 2 hours if necessary atorvastatin (LIPITOR) 80 mg tablet Take 80 mg by mouth daily at bedtime. DULoxetine (CYMBALTA) 30 mg capsule Take 1 capsule by mouth once daily. Take with 60 mg for 90 mg total dose. (Patient taking differently: Take 30 mg by mouth three times daily. Takes 30 mg three times daily per patient) baclofen (LIORESAL) 20 mg tablet Take 20 mg by mouth daily at bedtime. furosemide (LASIX) 40 mg tablet Take 40 mg by mouth once daily. doxazosin (CARDURA) 4 mg tablet Take 4 mg by mouth once daily. metoprolol succinate XL, long acting, (TOPROL XL) 50 mg 24 hr tablet Take 50 mg by mouth once daily. cyanocobalamin (VITAMIN B-12) 1,000 mcg tab Take 1,000 mcg by mouth once daily. fluticasone (FLONASE) 50 mcg/actuation nasal spray Use 2 Sprays in each nostril twice daily. Patient Entered Questionnaires Spine Questions 04/09/2022 04/20/2022 07/02/2022 Pain Location: Lower back Lower back Lower back Pain Duration: More than 5 years - - Pain over last 6 months: Every day or nearly every day in the past 6 months - - Symptoms from neck/cervical spine: No No No Employment Status: Disabled for reasons other than back pain - Disabled for reasons other than back pain Involved in law suit/legal claim: - - - Neck Questionnaires 10/02/2021 Benzel Modified SCARLETT Score Incomplete PROMIS Score Percentiles Physical Health 12/04/2021 01/14/2022 04/09/2022 Physical Function Percentile 73 0 0 Sleep Percentile 50 2 0 Fatigue Percentile 98 79 0 Pain Interference Percentile 0 0 0 PROMIS SOCIAL ROLE SCORE 12/04/2021 01/14/2022 04/09/2022 Social Role Satisfaction Percentile 1 1 2 PROMIS Global Health Scale 02/25/2022 03/30/2022 07/02/2022 Physical Health Percentile 7 1 1 Mental Health Percentile 3 3 2 Percentiles provide an indication of how the patient's score ranks in relation to the general population. Higher percentile rankings indicate better function/quality of life. 50th percentile is the average of the general population and indicates half of respondents had a worse score. Depression Screening: PHQ-9 02/07/2022 04/09/2022 07/02/2022 Score 10 21 17 PHQ-9 Self-harm Question 02/07/2022 04/09/2022 07/02/2022 Thoughts that you would be b (more content not included)...[facility] 07-03-2022 History of Present illness Narrative* Christy Cat PA-C - 07/03/2022 11:27 AM EST SPINE SURGERY ESTABLISHED This is a virtual visit using [employer] video visit. It required patient-provider interaction for themedical decision making as documented below. DATE OF SERVICE: 07/03/2022 DATE OF LAST VISIT: 04/21/2022 SUBJECTIVE: HPI:Mary Jimenez is a 62 year old male presenting alone. Underwent revision L4-pelvis instrumented fusion on 12/31/21. Has been going to PT, but PT says patient is not making improvements. The patient prefers walking, states PT causes him pain. He has been going to [employer] to try massage beds, would like to try stationary bike. He has been followingup with local pain management doctor. Incision appears to be healing well, denies drainage or signs of infection. Recent lumbar MRI shows post operative soft tissue fluid collection. REVIEW OF SYSTEMS: GENERAL: No weight loss or malaise MUSCULOSKELETAL: Negative for joint pain, swelling or muscle pain NEURO: No history of headaches, syncope, paralysis, seizures or tremors MEDICATIONS: methylPREDNISolone (MEDROL DOSE-PACK) 4 mg Dose-Pack As Instructed per package Pregabalin (LYRICA) 200 mg capsule Take 1 capsule by mouth three times daily for 90 days. ibuprofen (MOTRIN) 800 mg tablet Take 1 tablet by mouth every 8 hours as needed for pain. QUEtiapine (SEROQUEL) 25 mg tablet TAKE ONE TABLET BY MOUTH EVERY NIGHT AT BEDTIME lactobacillus combination no.4 3 billion cell cap Take 1 capsule by mouth once daily. clopidogrel (PLAVIX) 75 mg tablet Take 1 tablet by mouth once daily. Please hold this medication until post op day 10 telmisartan (MICARDIS) 80 mg tablet Take 80 mg by mouth once daily. docusate sodium (COLACE) 100 mg capsule Take 1 capsule by mouth twice daily. docosahexaenoic acid/epa (FISH OIL ORAL) Take 5 capsules by mouth once daily. fremanezumab-vfrm (AJOVY SYRINGE SUBCUTANEOUS) Inject 250 mg/mL subcutaneously. every 28 days for migraines CHROMIUM PICOLINATE ORAL Take 800 mcg by mouth once daily. MAGNESIUM ORAL Take 400 mg by mouth once daily. finasteride (PROSCAR) 5 mg tablet Take 5 mg by mouth daily at bedtime. CALCIUM CARBONATE/VITAMIN D3 (CALCIUM 600 + D ORAL) Take 1 tablet by mouth once daily. LACTOBACILLUS ACIDOPHILUS (PROBIOTIC ACIDOPHILUS ORAL) Take 1 capsule by mouth once daily. doxepin capsule 10 mg Take 10 mg by mouth daily at bedtime. Takes 2 tabs at bedtime dicyclomine (BENTYL) 10 mg capsule Take 20 mg by mouth as needed. 4 times daily as needed eletriptan (RELPAX) 40 mg tablet Take 40 mg by mouth as needed. may repeat in 2 hours if necessary atorvastatin (LIPITOR) 80 mg tablet Take 80 mg by mouth daily at bedtime. DULoxetine (CYMBALTA) 30 mg capsule Take 1 capsule by mouth once daily. Take with 60 mg for 90 mg total dose. (Patient taking differently: Take 30 mg by mouth three times daily. Takes 30 mg three times daily per patient) baclofen (LIORESAL) 20 mg tablet Take 20 mg by mouth daily at bedtime. furosemide (LASIX) 40 mg tablet Take 40 mg by mouth once daily. doxazosin (CARDURA) 4 mg tablet Take 4 mg by mouth once daily. metoprolol succinate XL, long acting, (TOPROL XL) 50 mg 24 hr tablet Take 50 mg by mouth once daily. cyanocobalamin (VITAMIN B-12) 1,000 mcg tab Take 1,000 mcg by mouth once daily. fluticasone (FLONASE) 50 mcg/actuation nasal spray Use 2 Sprays in each nostril twice daily. Patient Entered Questionnaires Spine Questions 04/09/2022 04/20/2022 07/02/2022 Pain Location: Lower back Lower back Lower back Pain Duration: More than 5 years - - Pain over last 6 months: Every day or nearly every day in the past 6 months - - Symptoms from neck/cervical spine: No No No Employment Status: Disabled for reasons other than back pain - Disabled for reasons other than backpain Involved in law suit/legal claim: - - - Neck Questionnaires 10/02/2021 Benzel Modified SCARLETT Score Incomplete PROMIS Score Percentiles Physical Health 12/04/2021 01/14/2022 04/09/2022 Physical Function Percentile 73 0 0 Sleep Percentile 50 2 0 Fatigue Percentile 98 79 0 Pain Interference Percentile 0 0 0 PROMIS SOCIAL ROLE SCORE 12/04/2021 01/14/2022 04/09/2022 Social Role Satisfaction Percentile 1 1 2 PROMIS Global Health Scale 02/25/2022 03/30/2022 07/02/2022 Physical Health Percentile 7 1 1 Mental Health Percentile 3 3 2 Percentiles provide an indication of how the patient's score ranks in relation to the general population. Higher percentile rankings indicate better function/quality of life. 50th percentile is the average of the general population and indicates half of respondents had a worse score. Depression Screening: PHQ-9 02/07/2022 04/09/2022 07/02/2022 Score 10 21 17 PHQ-9 Self-harm Question 02/07/2022 04/09/2022 07/02/2022 Thoughts that you would be better off , or of hurting yourself in some way 0 0 0 PHQ-9 Self-Harm (Item 9) response options: 0 Not at all 1 Several days 2 More than half the days 3 Nearly every day PHQ-9 Levels: 0-4 No to mild depression 5-9 Mild depression 10-14 Moderate depression 15-19 Moderately severe depression 20-27 Severe depression OBJECTIVE: PHYSICAL EXAM: There were no vitals taken for this visit. GENERAL APPEARANCE: Well nourished, well developed, and no apparent distress. NEURO PSYCH: Patient oriented to person, place, and time. Mood pleasant. Benign affect. MUSCULOSKELETAL VISUAL INSPECTION CERVICAL: WNL THORACIC: WNL LUMBAR: WNL Incision appears intact NEURO TESTS: None DATA REVIEW:Diagnostic tests reviewed for today's visit, films/specimens were personally reviewed by me: [facility] records independently reviewed Imaging and outside records independently reviewed Images independently reviewed with the patient ASSESSMENT/PLAN (M54.16) Lumbar radiculopathy (primary encounter diagnosis) 62 year old male s/p L4-pelvis instrumented fusion on 12/31/21. - MRI lumbar spine with soft tissue fluid collection. In the absence of fevers/chills and erythema or any other sign or symptom of infection, favor seroma. - Encouraged increasing activities as tolerated. - Follow up in 4 months. SIGNATURE: Christy Cat PA-C PATIENT NAME: Mary Jimenez DATE: July 03, 2022 TIME: 11:27 AM PAGER: [facility] Miscellaneous Notes* Telephone Encounter - Greta Nunez RN - 07/03/2022 9:04 AM EST PA made aware of the message to review prior to virtual appointment today. documented in this [facility]-2022 NoteCONSULTATION CONSULTATION DATE: 06/05/2022 HISTORY OF PRESENT ILLNESS: This is a 62-year-old gentleman who has not been seen at the Pain Clinic since November of this year. He is returning today for his chronic lower back pain and requesting medication management. The patient has had a total of six back surgeries. [facility]. Approximately a week ago, the patient had a fall at home and spent two days in the hospital at [facility] for deconditioning. According to the patient's report, they ruled out a TIA. He is on multiple medications and being managed by his PCP. He does have bilateral radiculitis to the posterior aspect of S1 bilaterally to the level of the heel. He is on Lyrica 200 mg t.i.d., Plavix, baclofen and magnesium. The clinic, in the past, had him on Posen 5/325 b.i.d., but he has had multiple prescribes since that time for multiple ailments. Currently, he is on no pain medications and is inquiring about returning to his Posen. Patient's REVIEW OF SYSTEMS / PAST MEDICAL HISTORY / ALLERGIES and IMAGES have been reviewed and noted on the chart. PHYSICAL EXAM: VITAL SIGNS: Blood pressure 121/78, heart rate is 96. Temperature is 98. He is 5'10 , weighs 294 pounds. GENERAL APPEARANCE: Pleasant, appropriate, no acute distress. FOCUSED EXAM - BACK: Scar is intact, well approximated and closed. Paravertebral muscles are taut but non-spasmodic. No reproduction of spinal axial pain upon compression along the lumbar facets. Melissa's point mildly tender to the right. Range of motion is functional in lateral rotation and flexion/extension. MUSCULOSKELETAL: Motor is 4/5 bilaterally. Weakness in the bilateral quadriceps and anterior tibialis. Extensors are intact. NEUROLOGICAL: Stocking distribution hypoesthesia noted to bilateral S1 distribution, left greater than right. Patellar and Achilles reflexes are +1. Patient is cognitively intact. DIAGNOSIS: Lumbar radiculitis, lumbar degenerative disc disease, chronic lower back pain. PLAN: We will start him on Posen 5/325 b.i.d. for medication pain management. He is currently in [facility] and he is to continue that. Did not recommend any oral NSAIDs to the patient, as he does have third stage kidney failure. We will see the patient in three months' time for re-evaluation and medication management. Patient agrees with this plan.[facility] [id number] Evaluation + Plan note Future Scheduled Tests Radiology* MRI Spine Cervical w/o Contrast 05/28/22 [facility]11-29-2022 Evaluation note* Encounter Date Diagnosis Assessment Notes Treatment Notes Treatment Clinical Notes Apr, Other chronic pain (ICD-10 - G89.29) We had a long talk about the complexity of his chronic pain and need to continue following up with specialist. Per my chart review, it looks like Dr. Ochoa did not want to be involved in his pain management until the surgeon was done. Because the surgeon is now done, no longer prescribing pain medicines, I encouraged the patient to call Dr. Ochoa to get back into the office for chronic pain management follow-up. He will get MRI cervical and lumbar spines as scheduled/ordered by neurology tomorrow and follow [facility] up in the [facility] as scheduled. Apr, Low back pain, unspecified (ICD-10 - M54.50) See dictation above Apr, Osteoarthritis of spine with radiculopathy, lumbosacral region (ICD-10 - M47.27) See dictation above Apr, Osteoarthritis of cervical spine, unspecified spinal osteoarthritis complication status (ICD-10 - M47.812) See dictation above Apr, Renal failure, unspecified chronicity (ICD-10 - N19) He is frustrated that in [place] they told him he needed to stop ibuprofen because of his stage III kidney failure. It is unclear whether that was diagnosed during a time of a sepsis acute illness admission. I did tell him that he should for now stay off ibuprofen. We printed a copy of his May 03 hospital BMP for him to take to his [place] physicians. It showed BUN 20, creatinine 1.59. 29 Apr, 2022 Stroke (ICD-10 - I63.9) By the time of his hospital discharge she was felt he likely did not have a stroke/TIA but he remains on aspirin in addition to his Plavix for 30 days with neurology outpatient follow-up scheduled. Apr, Other RTO as schedule d and sooner as needed. [facility] Other 11-11-2022 Miscellaneous Notes* Telephone Encounter - Greta Nunez RN - 05/09/2022 2:09 PM EST Will forward for review. documented in this encounterSelect [facility]11-[facility]-2022 Discharge summary Author Cathy Zavala [facility] May 06, 2022 3:14pm Note Date/Time May 06, 2022 3 :05pm [facility] [address] [place] [address] Discharge Summary Signed Patient: Mary Jimenez MR#: [id number] : 1960 Acct:[id number] Age/Sex: 61 / M Adm Date: 2 Loc: Room: [address] [place] [address]: Cathy Zavala MD Copies to: DO Cathy Bhatia MD~ Providers Date of Discharge: 05/06/22 Discharging Provider: Cathy Zavala Primary Care Provider: Jose Ray Consults: 05/03/22 18:54 Consult to Neurology Routine Consult to Occupational Therapy Routine Consult to Physical Therapy Routine 05/06/22 09:41 Consult to Pain Management Routine 05/06/22 09:59 RICHAR [[facility] Transition of Care Referral] Routine Discharge Diagnosis (1) Postlaminectomy syndrome: (2) Atypical migraine: (3) Obstructive sleep apnea: (4) Dizziness: (5) Repeated falls: (6) Slurred speech: (7) Chronic kidney disease, stage 3: (8) Lumbar radicular pain: Final Diagnosis Final Discharge Diagnosis: As above Summary Hospital Course Hospital course: Patient with multiple medical comorbidities presented to ER with complaint of slurring speech and dizziness. He was kept in the hospital for stroke work-up. Also complaining of significant back and right lower extremity pain. He had history of lumbar spine surgery done earlier this year and has developed significant pain radiating to lower extremities more on the right. Seen by neurology service due to concern for TIA started on aspirin along with Plavix. Echocardiogram showing preserved ejection fraction with no wall motion abnormality. Pending A1c level with LDL of 78. Neurology impression of atypicalmigraine. Due to his significant back pain plan was to obtain MRI lumbar spine. Due to presence of pain pump unable to obtain MRI in our facility and he was scheduled to get MRI at [facility]. Patient not able to get MRI as he was anxious andwas having trouble sitting. Neurology recommending outpatient follow-up and hascleared to be discharged. He was also seen by pain management with impression of postlaminectomy syndrome and recommendation for outpatient follow-up since patient is currently on Plavix and cannot receive injection at this time. Patient mentioned having appointment with his neurosurgeon regarding injection and is advised to keep that follow-up. He has been able to ambulate. PT recommending SNF which patient is refusing and will be discharged home. There is possibility of polypharmacy and recommend titration of medication with his primary care provider to prevent dizziness. His labs showed microcytic anemia with no signs of active bleeding. Will recommend repeat CBC in 4 days and if remains anemic he will require further work-up. Advised to avoid NSAID. Aspirin has been added for 30 days and can be discontinued after and continue onplavix. Condition Condition at Discharge: Stable Time Spent with Patient Time spent providing/coordinating discharge services (# min): 26 Diagnostic Studies Completed and Pending Studies Pending studies at discharge: 05/04/22 04:32 A1C with Estimated Average Glu [CHEM] IN AM 05/05/22 13:26 MR lumbar spine wo/w con Routine 05/06/22 14:21 Stool Occult Blood (Guaiac) Routine 05/07/22 05:00 Complete Blood Count Auto Diff IN AM Ferritin [CHEM] IN AM Iron and TIBC Profile [CHEM] IN AM Exam Physical Exam Vital Signs: Temp Pulse Resp BP Pulse Ox O2 Del Method 97.9 F 79 18 131/80 93 L Room Air 05/06/22 12:00 05/06/22 12:00 05/06/22 12:00 05/06/22 12:00 05/06/22 12:00 05/06/22 12:00 Const General: cooperative Orientation: alert, awake and oriented x3 Eyes Pupils: PERRL EOM: EOM intact bilaterally and No nystagmus Resp Effort & Inspection: normal respiratory effort and able to speak in complete sentences Auscultation: no rales, no rhonchi and no wheezes Cardio Rate: regular rate Rhythm: regular rhythm Heart Sounds: S1 normal and S2 normal GI Palpation: soft, not firm, no guarding and nontender Musc Cervical Spine: cervical ROM normal Neuro General: patient alert, patient awake, patient oriented x3, moves all extremities and no focal motor deficits Cranial Nerves: CN's II-XII intact bilaterally Cognition: normal cognition Speech: speech normal and speech normal Motor: muscle tone normal throughout Extrem General: no clubbing, cyanosis or edema, no pedal edema and no calf tenderness Psych Appearance: grossly normal Discharge Plan Discharge Plan Patient Disposition: Home Activity: Ambulate as Tolerated Diet: Low-Sodium and Low-Cholesterol Additional Instructions: Take aspirin for 30 days along with Plavix and then discontinue taking aspirin. Prescriptions: New hydrocodone-acetaminophen 5-325 mg Tablet 1 tab PO Q6HR PRN (Reason: Pain) 3 Days Qty: 12 0RF aspirin 81 mg Tablet,Delayed Release (Dr/Ec) 81 mg PO DAILY 30 Days Qty: 30 0RF Continued DHEA 10 mg-47 mg calcium Tablet 10 tab PO DAILY promethazine 12.5 mg Tablet 25 mg PO DAILY dicyclomine 20 mg tablet 20 mg PO QID Label Comments: omeprazole 40 mg capsule,delayed release(DR/EC) 40 mg PO DAILY nortriptyline 50 mg capsule 50 mg PO DAILY pregabalin 100 mg capsule 200 mg PO 3XD mirtazapine 30 mg tablet 30 mg PO DAILY furosemide 40 mg tablet 1 tab PO DAILY Label Comments: clopidogrel 75 mg tablet 1 tab PO DAILY Label Comments: potassium chloride [Klor-Con M20] 20 mEq tablet,ER particles/crystals 1 tab PO DAILY Label Comments: fluticasone propionate [Flonase Allergy Relief] 50 mcg/actuation Bolt,Suspension 2 spray INTRANASAL DAILY duloxetine [Cymbalta] 60 mg Capsule,Delayed Release(Dr/Ec) 30 mg PO TID metoprolol tartrate 50 mg Tablet 50 mg PO DAILY valacyclovir [Valtrex] 500 mg Tablet 500 mg PO DIRECTED PRN (Reason: Outbreak) baclofen 20 mg Tablet 20 mg PO BID atorvastatin 80 mg tablet 1 tab PO QHS Label Comments: telmisartan [Micardis] 80 mg Tablet 80 mg PO DAILY doxazosin 4 mg Tablet 4 mg PO DAILY biotin 10,000 mcg Capsule 1 tab PO QHS finasteride 5 mg Tablet 5 mg PO DAILY One-A-Day Men's Multivitamin 400-300 mcg Tablet 1 tab PO DAILY testosterone cypionate 200 mg/mL Kit 150 mg IM Q2W Held acetaminophen 500 mg Tablet 1,000 mg PO Q6H PRN (Reason: Pain) Hold Instructions: until taking hydrocodone Discontinued ibuprofen 800 mg Tablet 800 mg PO TID Other Ambulatory Orders: Complete Blood Count Auto Diff (Routine) Timeframe: 4 Days Location: Determined by Patient Ordered By: Cathy Zavala PT/OT/SP OutPatient Referral (Routine) Timeframe: 1 Day Location: Determined by Patient Ordered By: Cathy Zavala Follow Up: [facility] [Outside] - 06/10/22 3:40 pm (With Melia EUBANKS and Dr. Feliz) [facility] Transitions of Care [Outside] - 05/07/22 9:45 am (You have been referred to the [facility] ([facility]) for a post discharge education visit because you have one or more conditions that have been associated with a moderate to high risk of complications that may increase the likelihood that you will be readmitted to the hospital again in the near future. .? Address:? [address] [place] [address], [facility].? NOTE:? PLEASE BRING ALL OF YOUR MEDICATION BOTTLES WITH YOU TO THE APPOINTMENT WELL YOUR DISCHARGE INSTRUCTIONS.) Jose Ray DO [Primary Care Provider] - 05/27/22 1:15 pm (You have been scheduled for a follow up appointment for the following date and time, please call to reschedule if needed. This is the next soonest available appointment, they asked you please call if you need anything before then and the office will call you if anything opens up before then.) Documented By: Cathy Zavala MD 05/06/22 1507 Signed By: <Electronically signed by Cathy Zavala MD> 05/06/22 0642 [facility] Work Phone: 1(729) 863-452111-08-2022 Progress note Author Cathy Zavala [facility] May 06, 2022 2:21pm Note Date/Time May 06, 2022 2 :21pm [facility] [address] [place] [address] Hospitalist Progress Note Signed Patient: Mary Jimenez MR#: [id number] : 1960 Acct:[id number] Age/Sex: 61 / M Adm Date: 2 Loc: 4 Room: [address] [place] [address] Type: ADM INOo Attending Dr: Cathy Zavala MD Copies to: ~ Date of Service: 05/06/2022 Subjective Subjective Narrative: Patient examined at bedside with no overnight event. He has been able to ambulate with physical therapy but continues to complain of back pain radiating to right lower extremity. Scheduled for MRI at [facility] due to presence of spinal stimulator. Exam Physical Exam Vital Signs: Temp Pulse Resp BP Pulse Ox O2 Del Method 97.9 F 79 18 131/80 93 L Room Air 05/06/22 12:00 05/06/22 12:00 05/06/22 12:00 05/06/22 12:00 05/06/22 12:00 05/06/22 12:00 Const Orientation: alert, awake and oriented x3 Resp Effort & Inspection: normal respiratory effort and able to speak in complete sentences Auscultation: no rales, no rhonchi and no wheezes Cardio Rate: regular rate Rhythm: regular rhythm Heart Sounds: S1 normal and S2 normal GI Palpation: soft, not firm, no guarding and nontender Musc Cervical Spine: normal cervical lordosis and cervical ROM normal Neuro General: patient alert, patient awake, patient oriented x3, moves all extremities and no focal motor deficits Cranial Nerves: CN's II-XII intact bilaterally Cognition: normal cognition Speech: speech normal and speech normal Motor: muscle tone normal throughout Extrem General: no clubbing, cyanosis or edema, no pedal edema and no calf tenderness Psych Appearance: grossly normal Objective Lab Results CBC & Chem 7: 05/03/22 14:46 05/04/22 04:32 Meds Allergies and Active Meds Allergies Penicillins Allergy (Severe, Verified 05/03/22 15:09) Anaphylaxis latex Allergy (Verified 05/03/22 15:09) Unknown Reaction Active Meds: Active Medications Generic Name Dose Route Start Last Admin Trade Name Lucasq PRN Reason Stop Dose Admin Hydrocodone Bitart/Acetaminophen 1 tab 05/05/22 13:01 05/06/22 09:37 Hydrocodone/Acetaminophen 5-325 Mg Tablet PO 1 tab Q4HR PRN Administration Pain Aspirin 81 mg 05/03/22 19:00 05/06/22 09:37 Aspirin 81 Mg Tablet. PO 05/03/23 18:59 81 mg DAILY YNES Administration Atorvastatin Calcium 80 mg 05/03/22 22:00 05/06/22 00:34 Atorvastatin 80 Mg Tablet PO 05/03/23 21:59 Not Given QHS YNES Baclofen 20 mg 05/03/22 22:00 05/06/22 00:34 Baclofen 20 Mg Tablet PO 05/03/23 21:59 Not Given QHS YNES Clopidogrel Bisulfate 75 mg 05/04/22 09:00 05/06/22 09:37 Clopidogrel Bisulfate 75 Mg Tablet PO 05/04/23 08:59 75 mg DAILY YNES Administration Dicyclomine HCl 20 mg 05/03/22 22:00 05/06/22 09:37 Dicyclomine 20 Mg Tablet PO 05/03/23 21:59 20 mg QID YNES Administration Doxazosin Mesylate 4 mg 05/04/22 09:00 05/06/22 09:37 Doxazosin 4 Mg Tablet PO 05/04/23 08:59 4 mg DAILY YNES Administration Duloxetine HCl 30 mg 05/04/22 14:00 05/06/22 09:37 Duloxetine 30 Mg Capsule. PO 05/04/23 13:59 30 mg TID YNES Administration Enoxaparin Sodium 40 mg 05/04/22 10:00 05/06/22 09:38 Enoxaparin 40 Mg/0.4 Ml Syringe SUBCUT 05/04/23 09:59 40 mg DAILY@10 YNES Administration Finasteride 5 mg 05/04/22 09:00 05/06/22 09:40 Finasteride 5 Mg Tablet PO 05/04/23 08:59 5 mg DAILY YNES Administration Fluticasone Propionate 2 spray 05/04/22 15:30 05/04/22 17:38 Fluticasone Propionate Bolt 120 Bolt/16 Gm Bottle INTRANASAL 05/04/23 15:29 2 spray DAILY PRN Administration ALLERGIES / CONJESTION Hydralazine HCl 10 mg 05/03/22 18:54 Hydralazine 20 Mg/Ml Vial IV-PUSH 05/03/23 18:53 Q4H PRN Hypertension Irbesartan 300 mg 05/04/22 09:00 05/06/22 09:37 Irbesartan 300 Mg Tablet PO 05/04/23 08:59 300 mg DAILY YNES Administration Metoprolol Tartrate 25 mg 05/03/22 21:00 05/06/22 09:37 Metoprolol Tartrate 25 Mg Tablet PO 05/03/23 20:59 25 mg BID YNES Administration Mirtazapine 30 mg 05/04/22 09:00 05/06/22 09:37 Mirtazapine 30 Mg Tablet PO 05/04/23 08:59 30 mg DAILY YNES Administration Nortriptyline HCl 50 mg 05/04/22 09:00 05/06/22 09:37 Nortriptyline 25 Mg Capsule PO 05/04/23 08:59 50 mg DAILY YNES Administration Omeprazole 40 mg 05/04/22 09:00 05/06/22 09:37 Omeprazole 20 Mg Capsule.Dr PO 05/04/23 08:59 40 mg DAILY YNES Administration Pregabalin 200 mg 05/04/22 14:00 05/06/22 09:37 Pregabalin 100 Mg Capsule PO 10/31/22 13:59 200 mg TID YNES Administration A&P - Hospitalist Assessment/Plan (1) Dizziness: (2) Slurred speech: (3) Repeated falls: (4) Obstructive sleep apnea: (5) Chronic kidney disease, stage 3: (6) Atypical migraine: (7) Lumbar radicular pain: Plan Pain management has been consulted due to his significant pain. He is also scheduled for MRI given his lumbar spinal surgery in the beginning of the year and presentation of weakness and pain. We will continue PT/OT. Continue aspirin, statin, Plavix, metoprolol and DVT prophylaxis. Echocardiogram showingEF of 55 to 60% with normal wall motion. Carotid Doppler negative for significant stenosis. Documented By: Cathy Zavala MD 05/06/227 Signed By: <Electronically signed by Cathy Zavala MD> 05/06/22 1429 [facility] Work Phone: 1([phone]) 181-931911-08-2022 Consult note Author Xavi Smith [facility] May 07, 2022 12:29pm Note Date/Time May 06, 2022 2 :10pm [facility] [address] [place] [address] Pain Management Consult Note Signed Patient: Mary Jimenez MR#: [id number] : 1960 Acct:[id number] Age/Sex: 61 / M Adm Date: 2 Loc: 4 Room: [address] [place] [address] Type: DIS INOo Attending Dr: Cathy Zavala MD Copies to: DO Cathy Bhatia MD Sherif S Zaky, MD~ HPI Data of Consult Consult date: 05/06/22 Primary Care Provider: Jose Ray DO Consult Narrative Reason for consult: Low back and lower extremity pain Chief complaint: Low back and bilateral lower extremity pain History of present illness: Mr. Jimenez is a 61 year old male who was recently admitted to the hospital with sluured speech with concerns of stroke vs TIA. Pain neurologic symptoms has improved and did not require thrombolytic therapy. Patient continued to complainof low back pain that radiates to bilateral lower extremities. Patient has a long standing history of low back pain and bilateral lower extremity pain s/p multiple back surgeries. Patient used to see Dr Ochoa for pain management and currently sees a Pain management doctor in [place]. Pain management was consultedto evaluate for interventional options. [facility] Vaccinated for COVID-19?: Yes Medical History (Updated 05/06/22 @ 14:15 by Xavi Smith MD) CVA (cerebral vascular accident) Hypertension Morbid obesity Obstructive sleep apnea 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, bilateral Postlaminectomy syndrome Surgical History Hx of total knee replacement Previous back surgery Family History Other Hypertension Social History Smoking Status: Current every day smoker Substance Use Type: None Meds Medications and Allergies Allergies Penicillins Allergy (Severe, Verified 05/03/22 15:09) Anaphylaxis latex Allergy (Verified 05/03/22 15:09) Unknown Reaction Home Medications atorvastatin 80 mg tablet 1 tab PO QHS 03/30/17 [History Confirmed 05/03/22] baclofen 20 mg tablet 20 mg PO BID 03/30/17 [History Confirmed 05/03/22] biotin 10,000 mcg capsule 1 tab PO QHS 03/30/17 [History Confirmed 05/03/22] clopidogrel 75 mg tablet 1 tab PO DAILY 03/30/17 [History Confirmed 05/03/22] doxazosin 4 mg tablet 4 mg PO DAILY 03/30/17 [History Confirmed 05/03/22] duloxetine 60 mg capsule,delayed release (Cymbalta) 30 mg PO TID 03/30/17 [History Confirmed 05/04/22] finasteride 5 mg tablet 5 mg PO DAILY 03/30/17 [History Confirmed 05/03/22] fluticasone propionate 50 mcg/actuation nasal spray,suspension (Flonase Allergy Relief) 2 spray intranasal DAILY 03/30/17 [History Confirmed 05/03/22] furosemide 40 mg tablet 1 tab PO DAILY 03/30/17 [History Confirmed 05/03/22] metoprolol tartrate 50 mg tablet 50 mg PO DAILY 03/30/17 [History Confirmed 05/03/22] ttvznuem-iteoneeu-zyebu acid 400 mcg-vit K 20 mcg-lycop 300 mcg tablet (One-A-Day Men's Multivitamin) 1 tab PO DAILY 03/30/17 [History Confirmed 05/03/22] potassium chloride 20 mEq tablet,extended release(part/cryst) (Klor-Con M) 1 tabPO DAILY 03/30/17 [History Confirmed 05/03/22] telmisartan 80 mg tablet (Micardis) 80 mg PO DAILY 03/30/17 [History Confirmed 05/03/22] testosterone cypionate 200 mg/mL intramuscular kit 150 mg IM Q2W 03/30/17 [History Confirmed 05/03/22] valacyclovir 500 mg tablet (Valtrex) 500 mg PO DIRECTED PRN Outbreak 03/30/17[History Confirmed 05/03/22] dicyclomine 20 mg tablet 20 mg PO QID 07/14/18 [History Confirmed 05/03/22] prasterone (dhea)-calcium carbonate 10 mg-47 mg calcium tablet (DHEA) 10 tab PO DAILY 07/14/18 [History Confirmed 05/03/22] promethazine 12.5 mg tablet 25 mg PO DAILY 07/14/18 [History Confirmed 05/03/22] mirtazapine 30 mg tablet 30 mg PO DAILY 09/11/21 [History Confirmed 05/03/22] nortriptyline 50 mg capsule 50 mg PO DAILY 09/11/21 [History Confirmed 05/03/22] omeprazole 40 mg capsule,delayed release 40 mg PO DAILY 09/11/21 [History Confirmed 05/03/22] pregabalin 100 mg capsule 200 mg PO 3XD 09/11/21 [History Confirmed 05/03/22] acetaminophen 500 mg tablet 1,000 mg PO Q6H PRN Pain 05/03/22 [History Confirmed 05/03/22] aspirin 81 mg tablet,delayed release 81 mg PO DAILY 30 days #30 tabs 05/06/22 [Rx] hydrocodone 5 mg-acetaminophen 325 mg tablet 1 tab PO Q6HR PRN Pain 3 days #12 tabs 05/06/22 [Rx] Exam Physical Exam Vital Signs: Temp Pulse Resp BP Pulse Ox O2 Del Method 97.9 F 79 18 131/80 93 L Room Air 05/06/22 12:00 05/06/22 12:00 05/06/22 12:00 05/06/22 12:00 05/06/22 12:00 05/06/22 12:00 Const General: cooperative, no acute distress and well developed HEENT Head: normal to inspection Eyes General: appearance normal, both eyes and all related structures Neck Neck: normal visual inspection Resp Effort & Inspection: normal respiratory effort Cardio Jugular venous pressure: no JVD Musc Thoracic/Lumbar Spine: thoracic and lumbar spine normal to inspection and surgical scar(s) present Skin General: no rashes or lesions noted Wounds: no wounds Neuro General: patient alert, patient awake and patient oriented x3 Additional Findings Additional Findings: Mild lumbar paraspinal tenderness SLR negative bilaterally Results Vital Signs Vital Signs: Temp 97.9 F 05/06/22 12:00 Pulse 79 05/06/22 12:00 Resp 18 05/06/22 12:00 BP 131/80 05/06/22 12:00 Pulse Ox 93 L 05/06/22 12:00 O2 Del Method Room Air 05/06/22 12:00 Pain Generalized Lower Back: Pain Description: Constant Pain Intensity: 8 Right Leg: Pain Description: Aching Pain Intensity: 3 Labs CBC & Chem 7: 05/03/22 14:46 05/04/22 04:32 Assessment/Plan (1) Postlaminectomy syndrome: Plan: I reviewed patient recent xrays that shows multilevel fusion with hardware from L3-S1. Patient is scheduled to have MRI this after noon. I discussed with the patient his chronic pain condition which is consistent with postlaminectomy syndrome. Patient used to get injections as outpatient from pain management with good relief. Patient is on plavix and he had it today. This prohibits interventional treatment for 7 days. Based on his MRI he might be a candidate for caudal epidural injection as outpatient. discussed with the patient that he can get this through his pain management doctor. Code(s): M96.1 - Postlaminectomy syndrome, not elsewhere classified Status: Acute (2) Atypical migraine: Code(s): G43.009 - Migraine without aura, not intractable, without status migrainosus Status: Acute (3) Sepsis: Code(s): A41.9 - Sepsis, unspecified organism Status: Acute Documented By: Xavi Smith MD 05/06/22 1406 Signed By: <Electronically signed by Xavi Smith MD> 05/07/22 1229 [facility] Work Phone: [phone] Progress note Author Se eFliz [facility] May 06, 2022 4:12pm Note Date/Time May 06, 2022 8 :20am [facility] [address] [place] [address] Neurology Progress Note Signed Patient: Mary Jimenez MR#: [id number] : 1960 Acct:[id number] Age/Sex: 61 / M Adm Date: 2 Loc: 4N Room: [address] [place] [address] Type: ADM INOo Attending Dr: Cathy Zavala MD Copies to: ~ Date of Service: 05/06/2022 Subjective Subjective Narrative: Persistent and severe back pain with radiation into bilateral lower extremities which is worse with load bearing. Review of Systems Cardiovascular Cardiovascular: Denies chest pain Respiratory Respiratory: Denies dyspnea Gastrointestinal Gastrointestinal: Denies fecal incontinence and Denies nausea Genitourinary Genitourinary: Denies urinary incontinence Musculoskeletal Musculoskeletal: Reports back pain, Reports muscle weakness, Reports neck pain and Reports radiating pain into limb Neurologic Neurologic: Denies abnormal speech, Denies confusion, Reports localized weakness(Bilateral lower extremities), Denies headache(s) and Reports paresthesias Exam Physical Exam Vital Signs: Temp Pulse Resp BP Pulse Ox O2 Del Method 97.9 F 63 19 118/74 94 L Room Air 05/06/22 05:15 05/06/22 05:15 05/06/22 05:15 05/06/22 05:15 05/06/22 05:15 05/06/22 05:15 Narrative: GENERAL EXAM: * Constitutional - Patient appears well nourished and well groomed * Patient is alert and oriented x3. NEURO EXAM: * Attention span/concentration normal * Speech is clear and fluent * Cranial nerve II. Vision is intact. AMBER * Cranial nerve III, IV and . Extraocular muscles are intact. No nystagmus is appreciated * Cranial nerve V and VII. No facial asymmetry is appreciated. Temperature and pinprick is equal bilaterally * Cranial nerve VIII hearing is intact * Cranial nerve IX and X speech is clear fluent. Palate elevates symmetrically * Cranial nerve XI head turn side to side full range of motion. Shoulder shrug is equal bilaterally * Cranial nerve XII tongue is midline full range of motion MOTOR EXAM: * Strength is 5/5 throughout. No pronator drift was appreciated. He does get tremulous with strength testing in lower extremities * Muscle tone and bulk are normal * Gait not assessed SENSORY EXAM: * Temperature, pinprick, vibration are intact in all 4 extremities. Vibration is increased in the right lower extremity compared to the left. CEREBELLAR EXAM: * Opiakm-gv-[id number] and alternating movements are intact and normal in bilateral upper extremities * Nfpf-hv-[id number] and alternating movements are intact and normal in lower extremities REFLEX EXAM: * 3/4 at the bicep and brachialis bilaterally. No Jacinta appreciated * 3/4 at the patella bilaterally with cross abductor. No clonus Objective Vital Signs Vital Signs: Vital Signs - 24 hr 05/05/22 11:48 05/05/22 11:45 05/05/22 15:46 Temperature 98.5 F 99.2 F H Pulse Rate 69 68 Respiratory Rate 20 20 Blood Pressure 141/78 H 148/83 H 02 Sat by Pulse Oximetry 96 97 Oxygen Delivery Method Room Air Room Air Room Air 05/05/22 16:00 05/05/22 21:00 05/06/22 00:00 Temperature 97.4 F L Pulse Rate 73 Respiratory Rate 15 Blood Pressure 129/71 02 Sat by Pulse Oximetry 94 L Oxygen Delivery Method Room Air Room Air Room Air 05/06/22 05:15 Temperature 97.9 F Pulse Rate 63 Respiratory Rate 19 Blood Pressure 118/74 02 Sat by Pulse Oximetry 94 L Oxygen Delivery Method Room Air Labs CBC & Chem 7: 05/03/22 14:46 05/04/22 04:32 Therapy Recommendations Therapy Recommendations: OT Recommendations OT Recommended Discharge Home with Home Health,Retirement Facility Location OT Recommended Services at 19/01 Supervision Discharge PT Recommendations PT Recommended Discharge Home with Home Health,Retirement Facility Location PT Recommended Services at Physical Therapy,Occupational Therapy,19/01 Discharge Supervision Assessment/Plan (1) Atypical migraine: Assessment/Problem Details: 61-year-old man with history of stroke, hypertension, CKD, tobacco use, sleep apnea. He presented to the emergency department on May 03, 2022 for slurredspeech that started about 6 hours prior excluding him from tPA consideration. He had a fall prior to this starting he was he felt like his legs got weak and gave out. A second fall after the slurred speech and already started due to thesame issue. ER staff noticed he was stuttering. History of lumbosacral spondylosis and sciatica symptoms and chronic back pain. He denied a room spinning sensation. He said he did feel lightheaded. Intermittent blurred vision for the past week. Fluctuating leg weakness most likely related to chronic lumbar stenosis and radiculopathy. He has had 3 surgeries since July of this year on his lumbar spine at the [facility]. He had discectomy and fusion from L3 down to S1 in total. On physical exam he is hyperreflexic raising concern for a cervical pathology. He would expect lower motor neuron symptoms with lumbar pathology. He had fluctuating presyncopal sensations with this that may have represented orthostatic hypotension. Also with fluctuating dysarthria which may have also been manifestations of his presyncope. His only lingering symptoms are leg weakness and back pain. Fairly low suspicion for TIA but we can treat for that accordingly given his history of cerebrovascular disease. 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 He did have a CT scan of the head that was nonacute. Interval history: Patient continues to complain of severe back pain with radiation into the lower extremities limiting his mobility. Pain is worse with load bearing. MRIs are pending. 1. MRI lumbar spine with and without contrast (surgery early 2021) 2. Consider neurosurgical evaluation based on the lumbar images 3. Orthostatic vital signs (currently he is unable to stand long enough to do them) 4. Medications that might make him presyncopal include the doxazosin, furosemide, and metoprolol 5. Considerable risk for serotonin syndrome with the nortriptyline, duloxetine,and pregabalin 6. Medications that might cause fluctuating weakness or slurred speech: Baclofen, Lyrica (200 mg 3 times daily with an eGFR of 41) 7. On clopidogrel 75 mg daily and atorvastatin 80 mg daily. Aspirin 81 mg daily temporarily for 30 days with his other medications. 8. Hemoglobin A1c is pending 9. LDL 78 10. Urinalysis normal 11. COVID-19 negative 12. Carotid ultrasound is pending. He did have a carotid ultrasound in July that did not reveal occlusive disease 13. PT OT recommends home with home health versus SNF 14. MRI cervical spine pending 15. Consult pain management 16. We will follow I personally saw this patient on the day of the encounter, reviewed the history,performed the maldonado elements of the exam, formulated the plan of care and confirmed the WATER TRAINER note The patient is a 61-year-old male with multiple lumbar surgeries in the past andincreased difficulty ambulating in home due to intractable back pain and inability to bear weight. The patient was sent for open MRI scanner at a 1.5 Megan scanner due to placement of bone stimulator. The patient could not tolerate the study due to body habitus. The patient has been evaluated by physical therapy and recommendations for either home health or alf facility. The patient will need physical therapy upon discharge. The patient has pain management physician in [facility] which she can follow-up with or can see pain management at [facility]. The patient can attempt repeat MRI scan as an outpatient and a large bore MRI scanner. Code(s): G43.009 - Migraine without aura, not intractable, without status migrainosus Status: Acute (2) Sepsis: Code(s): A41.9 - Sepsis, unspecified organism Status: Acute Documented By: LYN Solis 818 Signed By: <Electronically signed by LYN Clark> 05/06/2244 <Electronically signed by MD Se Feliz> 05/06/22 1616 [facility] Work Phone: [phone]) 736-633911-07-2022 Progress note Author Se Feliz [facility] May 05, 2022 5:07pm Note Date/Time May 05, 2022 9 :04am [facility] [address] [place], [place] [id number] Neurology Progress Note Signed Patient: Mary Jimenez MR#: [id number] : 1960 Acct:[id number] Age/Sex: 61 / M Adm Date: 2 Loc: 4N Room: [address] [place] [address] Type: ADM INOo Attending Dr: Cathy Zavala MD Copies to: ~ Date of Service: 05/05/2022 Subjective Subjective Narrative: Patient states his legs still feel weak and will not hold him up. They get shaky and he falls. He did have one episode of incontinence when he was admitted but none since then. He denies any saddle paresthesias. He has occasional paresthesias in the left upper extremity which he states is positional. Review of Systems Cardiovascular Cardiovascular: Denies chest pain Respiratory Respiratory: Denies dyspnea Gastrointestinal Gastrointestinal: Denies nausea Musculoskeletal Musculoskeletal: Reports back pain, Reports muscle weakness, Reports neck pain and Reports radiating pain into limb (Bilateral lower extremities) Neurologic Neurologic: Denies localized weakness, Reports frequent falls, Denies headache(s) and Reports paresthesias Exam Physical Exam Vital Signs: Temp Pulse Resp BP Pulse Ox O2 Del Method 98.7 F 66 16 148/80 H 96 Room Air 05/05/22 08:00 05/05/22 08:00 05/05/22 08:00 05/05/22 08:00 05/05/22 08:00 05/05/22 08:00 Narrative: GENERAL EXAM: * Constitutional - Patient appears well nourished and well groomed * Patient is alert and oriented x3. * Apical is regular rate and rhythm. No murmur was appreciated. No edema noted. Pulses are normal * Lung sounds are clear to auscultation * Abdomen is soft with normal bowel sounds * Neck is supple without carotid bruit * Ophthalmoscopic exam deferred. No injection or drainage noted. NEURO EXAM: * Attention span/concentration normal * Speech is clear and fluent * Cranial nerve II. Vision is intact. AMBER * Cranial nerve III, IV and . Extraocular muscles are intact. No nystagmus is appreciated * Cranial nerve V and VII. No facial asymmetry is appreciated. Temperature and pinprick is equal bilaterally * Cranial nerve VIII hearing is intact * Cranial nerve IX and X speech is clear fluent. Palate elevates symmetrically * Cranial nerve XI head turn side to side full range of motion. Shoulder shrug is equal bilaterally * Cranial nerve XII tongue is midline full range of motion MOTOR EXAM: * Strength is 5/5 throughout. No pronator drift was appreciated. He does get tremulous with strength testing in lower extremities * Muscle tone and bulk are normal * Gait not assessed SENSORY EXAM: * Temperature, pinprick, vibration are intact in all 4 extremities. Vibration is increased in the right lower extremity compared to the left. CEREBELLAR EXAM: * Rrbykb-nr-[id number] and alternating movements are intact and normal in bilateral upper extremities * Qyaq-lx-lmlb and alternating movements are intact and normal in lower extremities REFLEX EXAM: * 3/4 at the bicep and brachialis bilaterally. No Jacinta appreciated * 3/4 at the patella bilaterally with cross abductor. No clonus Objective Vital Signs Vital Signs: Vital Signs - 24 hr 05/04/22 11:49 05/04/22 15:31 05/04/22 20:00 Temperature 97.6 F 97.2 F L 98.9 F Pulse Rate 58 L 67 68 Respiratory Rate 18 18 18 Blood Pressure 167/95 H 141/82 H 123/75 02 Sat by Pulse Oximetry 96 97 96 Oxygen Delivery Method Room Air Room Air Room Air 05/04/22 20:00 05/04/22 23:47 05/05/22 03:39 Temperature 98.1 F Pulse Rate 72 59 L Respiratory Rate 18 18 Blood Pressure 151/90 H 129/82 02 Sat by Pulse Oximetry 95 95 Oxygen Delivery Method Room Air Room Air Room Air 05/05/22 08:00 Temperature 98.7 F Pulse Rate 66 Respiratory Rate 16 Blood Pressure 148/80 H 02 Sat by Pulse Oximetry 96 Oxygen Delivery Method Room Air Labs CBC & Chem 7: 05/03/22 14:46 05/04/22 04:32 Therapy Recommendations Therapy Recommendations: OT Recommendations OT Recommended Discharge Home with Home Health,Retirement Facility Location OT Recommended Services at 19/01 Supervision Discharge PT Recommendations PT Recommended Discharge Home with Home Health,Retirement Facility Location PT Recommended Services at Physical Therapy,Occupational Therapy,19/01 Discharge Supervision Assessment/Plan (1) Atypical migraine: Assessment/Problem Details: 61-year-old man with history of stroke, hypertension, CKD, tobacco use, sleep apnea. He presented to the emergency department on May 03, 2022 for slurredspeech that started about 6 hours prior excluding him from tPA consideration. He had a fall prior to this starting he was he felt like his legs got weak and gave out. A second fall after the slurred speech and already started due to thesame issue. ER staff noticed he was stuttering. History of lumbosacral spondylosis and sciatica symptoms and chronic back pain. He denied a room spinning sensation. He said he did feel lightheaded. Intermittent blurred vision for the past week. Fluctuating leg weakness most likely related to chronic lumbar stenosis and radiculopathy. He has had 3 surgeries since July of this year on his lumbar spine at the [facility]. He had discectomy and fusion from L3 down to S1 in total. On physical exam he is hyperreflexic raising concern for a cervical pathology. He would expect lower motor neuron symptoms with lumbar pathology. He had fluctuating presyncopal sensations with this that may have represented orthostatic hypotension. Also with fluctuating dysarthria which may have also been manifestations of his presyncope. His only lingering symptoms are leg weakness and back pain. Fairly low suspicion for TIA but we can treat for that accordingly given his history of cerebrovascular disease. 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 He did have a CT scan of the head that was nonacute. Interval history: Patient states symptoms are persistent. On examination he is not necessarily weak however he does become tremulous with strength testing in lower extremities. Interestingly enough he is hyperreflexic throughout. 1. MRI lumbar spine with and without contrast (surgery early 2021) 2. Consider neurosurgical evaluation based on the lumbar images 3. Orthostatic vital signs (currently he is unable to stand long enough to do them) 4. Medications that might make him presyncopal include the doxazosin, furosemide, and metoprolol 5. Considerable risk for serotonin syndrome with the nortriptyline, duloxetine,and pregabalin 6. Medications that might cause fluctuating weakness or slurred speech: Baclofen, Lyrica (200 mg 3 times daily with an eGFR of 41) 7. On clopidogrel 75 mg daily and atorvastatin 80 mg daily. Aspirin 81 mg daily temporarily for 30 days with his other medications. 8. Hemoglobin A1c is pending 9. LDL 78 10. Urinalysis normal 11. COVID-19 negative 12. Carotid ultrasound is pending. He did have a carotid ultrasound in July that did not reveal occlusive disease 13. PT OT recommends home with home health versus SNF 14. MRI cervical spine pending 15. We will follow I personally saw this patient on the day of the encounter, reviewed the history,performed the maldonado elements of the exam, formulated the plan of care and confirmed the WATER TRAINER note Patient is a 61-year-old male with multiple lumbar surgeries admitted to the hospital due to inability to ambulate secondary to pain. The patient has good strength on neurological exam. Cannot exclude a structural lesion in the lumbarspine contributing to intractable pain on ambulation. The patient will require MRI scan and will require sedation. Patient will likely need rehabilitation forunderlying ambulation. The patient may need pain management assessment and recommendations. Will await the above results and make further recommendations based upon patient's clinical course. Code(s): G43.009 - Migraine without aura, not intractable, without status migrainosus Status: Acute (2) Sepsis: Code(s): A41.9 - Sepsis, unspecified organism Status: Acute Documented By: LYN Solis 0901 Signed By: <Electronically signed by LYN Clark> 05/05/22 1212 <Electronically signed by MD Se Feliz> 05/05/22 2454 [facility] Work Phone: [phone] Progress note Author Cathy Zavala [facility] May 05, 2022 1:17pm Note Date/Time May 05, 2022 1 :12pm [facility] [address] [place] [address] Hospitalist Progress Note Signed Patient: Mary Jimenez MR#: [id number] : 1960 Acct:[id number] Age/Sex: 61 / M Adm Date: 2 Loc: 4N Room: 9Z6995-7 Type: ADM INOo Attending Dr: Cathy Zavala MD Copies to: ~ Date of Service: 05/05/2022 Subjective Subjective Narrative: Patient examined at bedside and continues to complain of back pain radiating to right lower and has been having this pain since he got the surgery done earlier this year. MRI lumbar spine has been ordered. Exam Physical Exam Vital Signs: Temp Pulse Resp BP Pulse Ox O2 Del Method 98.5 F 69 20 141/78 H 96 Room Air 05/05/22 11:48 05/05/22 11:48 05/05/22 11:48 05/05/22 11:48 05/05/22 11:48 05/05/22 11:48 Const General: cooperative Orientation: alert, awake and oriented x3 Resp Effort & Inspection: normal respiratory effort and able to speak in complete sentences Auscultation: no rales, no rhonchi and no wheezes Cardio Rate: regular rate Rhythm: regular rhythm Heart Sounds: S1 normal and S2 normal GI Palpation: soft, not firm, no guarding and nontender Neuro General: patient alert, patient awake, patient oriented x3, moves all extremities and no focal motor deficits Cranial Nerves: CN's II-XII intact bilaterally Cognition: normal cognition Speech: speech normal and speech normal Motor: muscle tone normal throughout Extrem General: no clubbing, cyanosis or edema and no calf tenderness Psych Appearance: grossly normal Objective Lab Results CBC & Chem 7: 05/03/22 14:46 05/04/22 04:32 Meds Allergies and Active Meds Allergies Penicillins Allergy (Severe, Verified 05/03/22 15:09) Anaphylaxis latex Allergy (Verified 05/03/22 15:09) Unknown Reaction Active Meds: Active Medications Generic Name Dose Route Start Last Admin Trade Name Freq PRN Reason Stop Dose Admin Hydrocodone Bitart/Acetaminophen 1 tab 05/05/22 13:01 Hydrocodone/Acetaminophen 5-325 Mg Tablet PO Q4HR PRN Pain Aspirin 81 mg 05/03/22 19:00 05/05/22 08:43 Aspirin 81 Mg Tablet.Dr QUIJANO 05/03/23 18:59 81 mg DAILY YNES Administration Atorvastatin Calcium 80 mg 05/03/22 22:00 05/04/22 21:22 Atorvastatin 80 Mg Tablet PO 05/03/23 21:59 80 mg QHS YNES Administration Baclofen 20 mg 05/03/22 22:00 05/04/22 21:21 Baclofen 20 Mg Tablet PO 05/03/23 21:59 20 mg QHS YNES Administration Clopidogrel Bisulfate 75 mg 05/04/22 09:00 05/05/22 08:43 Clopidogrel Bisulfate 75 Mg Tablet PO 05/04/23 08:59 75 mg DAILY YNES Administration Dicyclomine HCl 20 mg 05/03/22 22:00 05/05/22 10:04 Dicyclomine 20 Mg Tablet PO 05/03/23 21:59 20 mg QID YNES Administration Doxazosin Mesylate 4 mg 05/04/22 09:00 05/05/22 10:10 Doxazosin 4 Mg Tablet PO 05/04/23 08:59 4 mg DAILY YNES Administration Duloxetine HCl 30 mg 05/04/22 14:00 05/05/22 10:05 Duloxetine 30 Mg Capsule. PO 05/04/23 13:59 30 mg TID YNES Administration Enoxaparin Sodium 40 mg 05/04/22 10:00 05/05/22 10:32 Enoxaparin 40 Mg/0.4 Ml Syringe SUBCUT 05/04/23 09:59 Not Given DAILY@10 YNES Finasteride 5 mg 05/04/22 09:00 05/05/22 11:15 Finasteride 5 Mg Tablet PO 05/04/23 08:59 5 mg DAILY YNES Administration Fluticasone Propionate 2 spray 05/04/22 15:30 05/04/22 17:38 Fluticasone Propionate Bolt 120 Bolt/16 Gm Bottle INTRANASAL 05/04/23 15:29 2 spray DAILY PRN Administration ALLERGIES / CONJESTION Hydralazine HCl 10 mg 05/03/22 18:54 Hydralazine 20 Mg/Ml Vial IV-PUSH 05/03/23 18:53 Q4H PRN Hypertension Irbesartan 300 mg 05/04/22 09:00 05/05/22 10:05 Irbesartan 300 Mg Tablet PO 05/04/23 08:59 300 mg DAILY YNES Administration Metoprolol Tartrate 25 mg 05/03/22 21:00 05/05/22 10:04 Metoprolol Tartrate 25 Mg Tablet PO 05/03/23 20:59 25 mg BID YNES Administration Mirtazapine 30 mg 05/04/22 09:00 05/05/22 10:04 Mirtazapine 30 Mg Tablet PO 05/04/23 08:59 30 mg DAILY YNES Administration Nortriptyline HCl 50 mg 05/04/22 09:00 05/05/22 10:04 Nortriptyline 25 Mg Capsule PO 05/04/23 08:59 50 mg DAILY YNES Administration Omeprazole 40 mg 05/04/22 09:00 05/05/22 10:04 Omeprazole 20 Mg Capsule.Dr PO 05/04/23 08:59 40 mg DAILY YNES Administration Pregabalin 200 mg 05/04/22 14:00 05/05/22 10:05 Pregabalin 100 Mg Capsule PO 10/31/22 13:59 200 mg TID YNES Administration A&P - Hospitalist Assessment/Plan (1) Dizziness: (2) Slurred speech: (3) Repeated falls: (4) Obstructive sleep apnea: (5) Chronic kidney disease, stage 3: (6) Atypical migraine: (7) Lumbar radicular pain: Plan MRI lumbar spine has been ordered given his radicular pain. Carotid Doppler negative for critical stenosis pending echocardiogram. Patient currently on aspirin, statin and Plavix. Continue PT/OT. Continue pain management and DVT prophylaxis, Documented By: Cathy Zavala MD 05/05/22 1309 Signed By: <Electronically signed by Cathy Zavala MD> 05/05/22 1313 [facility] Work Phone: [phone] Progress note Author Cathy Zavala [facility] May 04, 2022 4:15pm Note Date/Time May 04, 2022 4 :11pm [facility] [address] [place] [address] Hospitalist Progress Note Signed Patient: Mary Jimenez MR#: [id number] : 1960 Acct:[id number] Age/Sex: 61 / M Adm Date: 2 Loc: 4N Room: [address] [place] [address] Type: ADM IN Attending Dr: Cathy Zavala MD Copies to: ~ Date of Service: 05/04/2022 Subjective Subjective Narrative: Patient complaining of right leg pain which is chronic and requesting to resume his [place]. He was not able to sleep well last night. Unable to check orthostasis since he is not able to stand for long. Appreciate neurology consultation with plan to obtain MRI lumbar spine Exam Physical Exam Vital Signs: Temp Pulse Resp BP Pulse Ox O2 Del Method 97.2 F L 67 18 141/82 H 97 Room Air 05/04/22 15:31 05/04/22 15:31 05/04/22 15:31 05/04/22 15:31 05/04/22 15:31 05/04/22 15:31 Const General: cooperative Orientation: alert, awake and oriented x3 Resp Effort & Inspection: normal respiratory effort and able to speak in complete sentences Auscultation: no rales, no rhonchi and no wheezes Cardio Rate: regular rate Rhythm: regular rhythm Heart Sounds: S1 normal and S2 normal GI Palpation: soft, not firm, no guarding and nontender Neuro General: patient alert, patient awake, patient oriented x3, moves all extremities and no focal motor deficits Cranial Nerves: CN's II-XII intact bilaterally Cognition: normal cognition Speech: speech normal Extrem General: no pedal edema and no calf tenderness Objective Lab Results CBC & Chem 7: 05/03/22 14:46 05/04/22 04:32 Microbiology Results Microbiology 05/03/22 15:30 Nasal SARS Antigen (LFIA) - Final Meds Allergies and Active Meds Allergies Penicillins Allergy (Severe, Verified 05/03/22 15:09) Anaphylaxis latex Allergy (Verified 05/03/22 15:09) Unknown Reaction Active Meds: Active Medications Generic Name Dose Route Start Last Admin Trade Name Freq PRN Reason Stop Dose Admin Acetaminophen 1,000 mg 05/04/22 00:00 05/04/22 11:38 Acetaminophen 500 Mg Tablet PO 05/04/23 00:00 1,000 mg Q6HR YNES Administration Hydrocodone Bitart/Acetaminophen 1 tab 05/04/22 14:44 05/04/22 15:11 Hydrocodone/Acetaminophen 5-325 Mg Tablet PO 1 tab Q6H PRN Administration Pain Aspirin 81 mg 05/03/22 19:00 05/04/22 09:31 Aspirin 81 Mg Tablet. PO 05/03/23 18:59 81 mg DAILY YNES Administration Atorvastatin Calcium 80 mg 05/03/22 22:00 05/03/22 21:04 Atorvastatin 80 Mg Tablet PO 05/03/23 21:59 80 mg QHS YNES Administration Baclofen 20 mg 05/03/22 22:00 05/04/22 00:06 Baclofen 20 Mg Tablet PO 05/03/23 21:59 20 mg QHS YNES Administration Clopidogrel Bisulfate 75 mg 05/04/22 09:00 05/04/22 09:31 Clopidogrel Bisulfate 75 Mg Tablet PO 05/04/23 08:59 75 mg DAILY NYES Administration Dicyclomine HCl 20 mg 05/03/22 22:00 05/04/22 13:38 Dicyclomine 20 Mg Tablet PO 05/03/23 21:59 20 mg QID YNES Administration Doxazosin Mesylate 4 mg 05/04/22 09:00 05/04/22 09:33 Doxazosin 4 Mg Tablet PO 05/04/23 08:59 4 mg DAILY YNES Administration Duloxetine HCl 30 mg 05/04/22 14:00 05/04/22 13:38 Duloxetine 30 Mg Capsule. PO 05/04/23 13:59 30 mg TID YNES Administration Enoxaparin Sodium 40 mg 05/04/22 10:00 05/04/22 09:40 Enoxaparin 40 Mg/0.4 Ml Syringe SUBCUT 05/04/23 09:59 40 mg DAILY@10 YNES Administration Finasteride 5 mg 05/04/22 09:00 05/04/22 09:32 Finasteride 5 Mg Tablet PO 05/04/23 08:59 5 mg DAILY YNES Administration Fluticasone Propionate 2 spray 05/04/22 15:30 Fluticasone Propionate Bolt 120 Bolt/16 Gm Bottle INTRANASAL 05/04/23 15:29 DAILY PRN ALLERGIES / CONJESTION Hydralazine HCl 10 mg 05/03/22 18:54 Hydralazine 20 Mg/Ml Vial IV-PUSH 05/03/23 18:53 Q4H PRN Hypertension Irbesartan 300 mg 05/04/22 09:00 05/04/22 09:32 Irbesartan 300 Mg Tablet PO 05/04/23 08:59 300 mg DAILY YNES Administration Metoprolol Tartrate 25 mg 05/03/22 21:00 05/04/22 09:31 Metoprolol Tartrate 25 Mg Tablet PO 05/03/23 20:59 25 mg BID YNES Administration Mirtazapine 30 mg 05/04/22 09:00 05/04/22 09:32 Mirtazapine 30 Mg Tablet PO 05/04/23 08:59 30 mg DAILY YNES Administration Nortriptyline HCl 50 mg 05/04/22 09:00 05/04/22 09:32 Nortriptyline 25 Mg Capsule PO 05/04/23 08:59 50 mg DAILY YNES Administration Omeprazole 40 mg 05/04/22 09:00 05/04/22 09:32 Omeprazole 20 Mg Capsule.Dr PO 05/04/23 08:59 40 mg DAILY YNES Administration Pregabalin 200 mg 05/04/22 14:00 05/04/22 13:38 Pregabalin 100 Mg Capsule PO 10/31/22 13:59 200 mg TID YNES Administration A&P - Hospitalist Assessment/Plan (1) Dizziness: (2) Slurred speech: (3) Repeated falls: (4) Obstructive sleep apnea: (5) Chronic kidney disease, stage 3: Plan Patient complaining of severe pain in the right lower extremity and back. Appreciate neurology consultation with plan to obtain MRI lumbar spine with and without contrast given his history of lumbar spinal surgery and postop infection. Pending echocardiogram and carotid Doppler. Continue aspirin along with Plavix and statin. Pending A1c level with LDL of 78. Continue PT/OT. DVTprophylaxis with Lovenox. Documented By: Cathy Zavala MD 05/04/221609 Signed By: <Electronically signed by Cathy Zavala MD> 05/04/22 1615 [facility] Work Phone: [phone] Consult note Author Ortega Haskins [facility] May 04, 2022 1:26pm Note Date/Time May 04, 2022 9 :56am [facility] [address] [place] [address] Neurology Consult Note Signed Patient: Mary Jimenez MR#: [id number] : 1960 Acct:[id number] Age/Sex: 61 / M Adm Date: 2 Loc: 4N Room: 9G8975-8 Type: ADM IN Attending Dr: Cathy Zavala MD Copies to: DO Jose Cao,DO Cathy Zavala MD~ HPI Consult Date: 05/04/22 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 [facility] Vaccinated for COVID-19?: Yes Medical History (Updated 05/03/22 @ 20:36 by Jessica Borrego, RN) CVA (cerebral vascular accident) Hypertension Morbid obesity Obstructive sleep apnea 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, bilateral Surgical History Hx of total knee replacement Previous back surgery Family History Other Hypertension Social History Smoking Status: Current every day smoker Substance Use Type: None Meds Medications and Allergies Allergies Penicillins Allergy (Severe, Verified 05/03/22 15:09) Anaphylaxis latex Allergy (Verified 05/03/22 15:09) Unknown Reaction Home Medications atorvastatin 80 mg tablet 1 tab PO QHS 03/30/17 [History Confirmed 05/03/22] baclofen 20 mg tablet 20 mg PO BID 03/30/17 [History Confirmed 05/03/22] biotin 10,000 mcg capsule 1 tab PO QHS 03/30/17 [History Confirmed 05/03/22] clopidogrel 75 mg tablet 1 tab PO DAILY 03/30/17 [History Confirmed 05/03/22] doxazosin 4 mg tablet 4 mg PO DAILY 03/30/17 [History Confirmed 05/03/22] duloxetine 60 mg capsule,delayed release (Cymbalta) 30 mg PO TID 03/30/17 [History Confirmed 05/04/22] finasteride 5 mg tablet 5 mg PO DAILY 03/30/17 [History Confirmed 05/03/22] fluticasone propionate 50 mcg/actuation nasal spray,suspension (Flonase Allergy Relief) 2 spray intranasal DAILY 03/30/17 [History Confirmed 05/03/22] furosemide 40 mg tablet 1 tab PO DAILY 03/30/17 [History Confirmed 05/03/22] metoprolol tartrate 50 mg tablet 50 mg PO DAILY 03/30/17 [History Confirmed 05/03/22] qgvupsyx-vzpjqjrf-qqxzz acid 400 mcg-vit K 20 mcg-lycop 300 mcg tablet (One-A-Day Men's Multivitamin) 1 tab PO DAILY 03/30/17 [History Confirmed 05/03/22] potassium chloride 20 mEq tablet,extended release(part/cryst) (Klor-Con M) 1 tabPO DAILY 03/30/17 [History Confirmed 05/03/22] telmisartan 80 mg tablet (Micardis) 80 mg PO DAILY 03/30/17 [History Confirmed 05/03/22] testosterone cypionate 200 mg/mL intramuscular kit 150 mg IM Q2W 03/30/17 [History Confirmed 05/03/22] valacyclovir 500 mg tablet (Valtrex) 500 mg PO DIRECTED PRN Outbreak 03/30/17[History Confirmed 05/03/22] dicyclomine 20 mg tablet 20 mg PO QID 07/14/18 [History Confirmed 05/03/22] prasterone (dhea)-calcium carbonate 10 mg-47 mg calcium tablet (DHEA) 10 tab PO DAILY 07/14/18 [History Confirmed 05/03/22] promethazine 12.5 mg tablet 25 mg PO DAILY 07/14/18 [History Confirmed 05/03/22] mirtazapine 30 mg tablet 30 mg PO DAILY 09/11/21 [History Confirmed 05/03/22] nortriptyline 50 mg capsule 50 mg PO DAILY 09/11/21 [History Confirmed 05/03/22] omeprazole 40 mg capsule,delayed release 40 mg PO DAILY 09/11/21 [History Confirmed 05/03/22] pregabalin 100 mg capsule 200 mg PO 3XD 09/11/21 [History Confirmed 05/03/22] acetaminophen 500 mg tablet 1,000 mg PO Q6H PRN Pain 05/03/22 [History Confirmed 05/03/22] ibuprofen 800 mg tablet 800 mg PO TID 05/03/22 [History Confirmed 05/03/22] Exam Physical Exam Vital Signs: Temp Pulse Resp BP Pulse Ox O2 Del Method 97.5 F L 66 18 171/84 H 96 Room Air 05/04/22 08:00 05/04/22 08:00 05/04/22 08:00 05/04/22 08:00 05/04/22 08:00 05/04/22 08:00 Results Laboratory Findings CBC and BMP: 05/03/22 14:46 05/04/22 04:32 Diagnostic Findings Imaging/Impressions: ITS Impressions Head CT 05/03/22 14:43 IMPRESSION: No acute intracranial findings. Preliminary findings given at 3:00 PM 05/03/2022 Impression dictated by: Eagle Prince M.D.05/03/2022 3:33 PM Dictation Location: [place] [address] Chest X-Ray 05/03/22 14:44 IMPRESSION: No acute process. Impression dictated by: Eagle Prince M.D.05/03/2022 3:05 PM Dictation Location: [place] [address] Assessment/Plan (1) Atypical migraine: Assessment/Problem Details: HPI: 61-year-old man with history of stroke, hypertension, sleep apnea. Presented tot emergency department on May 03, 2022 for slurred speech that started about 6 hours prior. His ex- who was here initially said the slurring seem to come and go. He had a fall prior to this starting he was he felt like his legs got weak and gave out. A second fall after the slurred speech and already started due to the same issue. ER staff noticed he was stuttering. History of lumbosacral spondylosis and sciatica symptoms and chronic back pain. He denied a room spinning sensation. He said he did feel lightheaded. Intermittent blurred vision for the past week. EXAMINATION: Well-kempt. No distress. No deformities or trauma. Normal spinal curvature. Limbs seem well-perfused. No significant edema. Normal work of breathing. Visualized skin is generally intact and without lesions. Affect normal. Patient is alert and generally oriented. Attention normal. Speech is fluent andnondysarthric. Pupils are equal and reactive Ocular motility is full. No nystagmus. Facial sensation is normal. Hearing is normal. Facial strength is normal. Tongue is midline. Muscle bulk normal. Muscle tone seems normal. Diffuse weakness, +4/5, throughout bilateral lower extremities. No visualized asterixis. Reflexes normal in upper extremities and essentially absent in lowerextremities. No pathologic reflexes. Light touch and vibratory sensation decreased in distal left lower extremity more so than right distal lower extremity. No limb ataxia. ASSESSMENT: Fluctuating leg weakness most likely related to leg symptoms that stem from chronic lumbar stenosis and radiculopathy. He had fluctuating presyncopal sensations with this that may have represented orthostatic hypotension. Also with fluctuating dysarthria which may have also been manifestations of his presyncope. His only lingering symptoms are leg weakness and back pain. Fairly low suspicion for TIA but we can treat for that accordingly given his history of cerebrovascular disease. 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 PLAN: 1. MRI lumbar spine with and without contrast (surgery early 2021) 2. Consider neurosurgical evaluation based on the lumbar images 3. Orthostatic vital signs (currently he is unable to stand long enough to do them) 4. Medications that might make him presyncopal include the doxazosin, furosemide, and metoprolol 5. Considerable risk for serotonin syndrome with the nortriptyline, duloxetine,and pregabalin 6. Medications that might cause fluctuating weakness or slurred speech: Baclofen, Lyrica (200 mg 3 times daily with an eGFR of 41) 7. Home medications already include clopidogrel 75 mg daily and atorvastatin 80mg daily. In case any of his symptoms represented threatened cerebrovascular disease (TIA), take aspirin 81 mg daily temporarily for 30 days with his other medications. Code(s): G43.009 - Migraine without aura, not intractable, without status migrainosus Status: Acute (2) Sepsis: Code(s): A41.9 - Sepsis, unspecified organism Status: Acute Documented By: Ortega Haskins DO 05/04/22 0949 Signed By: <Electronically signed by Ortega Haskins DO> 05/04/22 [facility] Work Phone: [phone]) [phone] History and physical note Author Cathy Zavala [facility] May 03, 2022 6:54pm Note Date/Time May 03, 2022 6 :54pm [facility] [address] [place] [address] Hospitalist H&P Signed Patient: Mary Jimenez MR#: [id number] : 1960 Acct:[id number] Age/Sex: 61 / M Adm Date: 2 Loc: Room: [address] [place] [address] Type: ADM IN Attending Dr: Cathy Zavala MD Copies to: Jose DO Cathy Mixon MD~ HPI DATE OF EXAMINATION: 05/03/22 CHIEF COMPLAINT: Dizziness with slurred speech. HISTORY OF PRESENT ILLNESS: Patient is 61-year-old male with past medical history of obstructive sleep apneaon CPAP, morbid obesity, chronic kidney disease stage III, CVA without residual weakness, hypertension and chronic back pain. Patient presented to ER with complaint of lightheadedness and slurred speech. As per the patient he woke up in her normal state of health and while trying to go up to get his dog he felt lightheaded and dizzy leading to fall without loss of consciousness. He had another fall when he felt his legs giving out and afterward he was found to haveslurring of speech. In the emergency room his symptoms resolved with CT head negative for acute abnormality. He was not a candidate for tPA due to resolution of symptoms and presenting outside the window period. During my examination patient was sleeping comfortably and once awake he denies feeling dizzy, vertigo, visual disturbance, headache or new numbness or weakness in extremities. Patient history of chronic back pain and underwent lumbar spinal surgery in the beginning of the year at [facility]. He was seen in the emergency room in August and was transferred to the [facility] from the emergency room due to concern for infection and had positive blood cultures. Patient cannot recall the details but mentioned after getting discharged from the hospital he stayed in alf facility for 3-month. He has chronic back pain with left leg sciatica after surgery he developed right leg pain. He has chronic numbness in the right foot. He follows with pain management and mentioned he has been taken off hydrocodone and switch to acetaminophen and ibuprofen. It appears he also has history of arthritis and is scheduled for MRIof his right knee on Thursday. His labs did not show any significant abnormality and he will be kept under observation. Review of Systems Review of Systems Review of systems: 12 point review of system is unremarkable other than mentioned in history of presenting illness PMFSH Vaccinated for COVID-19?: Yes Medical History (Updated 05/03/22 @ 18:53 by Cathy Zavala MD) CVA (cerebral vascular accident) Hypertension Morbid obesity Obstructive sleep apnea Surgical History Hx of total knee replacement Previous back surgery Family History Other Hypertension Social History Smoking Status: Never smoker Substance Use Type: Alcohol and CBD Oil Meds Medications and Allergies Allergies Penicillins Allergy (Severe, Verified 05/03/22 15:09) Anaphylaxis latex Allergy (Verified 05/03/22 15:09) Unknown Reaction Home Medications atorvastatin 80 mg tablet 1 tab PO QHS 03/30/17 [History Confirmed 05/03/22] baclofen 20 mg tablet 20 mg PO BID 03/30/17 [History Confirmed 05/03/22] biotin 10,000 mcg capsule 1 tab PO QHS 03/30/17 [History Confirmed 05/03/22] clopidogrel 75 mg tablet 1 tab PO DAILY 03/30/17 [History Confirmed 05/03/22] doxazosin 4 mg tablet 4 mg PO DAILY 03/30/17 [History Confirmed 05/03/22] duloxetine 60 mg capsule,delayed release (Cymbalta) 30 mg PO DAILY 03/30/17 [History Confirmed 05/03/22] finasteride 5 mg tablet 5 mg PO DAILY 03/30/17 [History Confirmed 05/03/22] fluticasone propionate 50 mcg/actuation nasal spray,suspension (Flonase Allergy Relief) 2 spray intranasal DAILY 03/30/17 [History Confirmed 05/03/22] furosemide 40 mg tablet 1 tab PO DAILY 03/30/17 [History Confirmed 05/03/22] metoprolol tartrate 50 mg tablet 50 mg PO DAILY 03/30/17 [History Confirmed 05/03/22] adjghlym-jtdynimi-hausz acid 400 mcg-vit K 20 mcg-lycop 300 mcg tablet (One-A-Day Men's Multivitamin) 1 tab PO DAILY 03/30/17 [History Confirmed 05/03/22] potassium chloride 20 mEq tablet,extended release(part/cryst) (Klor-Con M) 1 tabPO DAILY 03/30/17 [History Confirmed 05/03/22] telmisartan 80 mg tablet (Micardis) 80 mg PO DAILY 03/30/17 [History Confirmed 05/03/22] testosterone cypionate 200 mg/mL intramuscular kit 150 mg IM Q2W 03/30/17 [History Confirmed 05/03/22] valacyclovir 500 mg tablet (Valtrex) 500 mg PO DIRECTED PRN Outbreak 03/30/17[History Confirmed 05/03/22] dicyclomine 20 mg tablet 20 mg PO QID 07/14/18 [History Confirmed 05/03/22] prasterone (dhea)-calcium carbonate 10 mg-47 mg calcium tablet (DHEA) 10 tab PO DAILY 07/14/18 [History Confirmed 05/03/22] promethazine 12.5 mg tablet 25 mg PO DAILY 07/14/18 [History Confirmed 05/03/22] mirtazapine 30 mg tablet 30 mg PO DAILY 09/11/21 [History Confirmed 05/03/22] nortriptyline 50 mg capsule 50 mg PO DAILY 09/11/21 [History Confirmed 05/03/22] omeprazole 40 mg capsule,delayed release 40 mg PO DAILY 09/11/21 [History Confirmed 05/03/22] pregabalin 100 mg capsule 100 mg PO DAILY 09/11/21 [History Confirmed 05/03/22] acetaminophen 500 mg tablet 1,000 mg PO Q6H PRN Pain 05/03/22 [History Confirmed 05/03/22] ibuprofen 800 mg tablet 800 mg PO TID 05/03/22 [History Confirmed 05/03/22] Exam Physical Exam Vital Signs: Temp Pulse Resp BP Pulse Ox O2 Del Method 98.6 F 59 L 18 152/95 H 94 L Room Air 05/03/22 14:45 05/03/22 18:19 05/03/22 18:19 05/03/22 18:19 05/03/22 18:19 05/03/22 18:19 Const General: cooperative Orientation: alert, awake and oriented x3 HEENT Head: normal to inspection, no palpable skull fracture, normocephalic and atraumatic Ears: hearing grossly normal bilaterally Nose: external nose normal Eyes Pupils: PERRL EOM: EOM intact bilaterally and No nystagmus Neck Neck: normal visual inspection, full ROM and no meningeal signs Resp Effort & Inspection: normal respiratory effort and able to speak in complete sentences Auscultation: no rales, no rhonchi and no wheezes Cardio Rate: regular rate Rhythm: regular rhythm Heart Sounds: S1 normal and S2 normal GI Palpation: soft, not firm, no guarding and nontender Musc Cervical Spine: normal cervical lordosis and cervical ROM normal Neuro General: patient alert, patient awake, patient oriented x3, moves all extremities and no focal motor deficits Cranial Nerves: CN's II-XII intact bilaterally Cognition: normal cognition Speech: speech normal and speech normal Motor: muscle tone normal throughout Other: Moving all extremities with strength normal in all 4 extremities. Extrem General: no pedal edema and no calf tenderness Psych Appearance: grossly normal Results Lab Results Labs: Laboratory Last Values Corrected WBC 7.5 X10E3/uL (4.1-10.5) 05/03/22 14:46 Uncorrected WBC Count 7.5 x10E3/uL (4.5-11.0) 05/03/22 14:46 RBC 4.81 x10E6/uL (3.90-5.60) 05/03/22 14:46 Hgb 11.5 g/dL (13.0-17.0) L 05/03/22 14:46 Hct 37.1 % (38.8-50.0) L 05/03/22 14:46 MCV 77.2 fl (83.5-101) L 05/03/22 14:46 MCH 23.8 pg (27.5-35.2) L 05/03/22 14:46 MCHC 30.9 g/dL (32.5-35.6) L 05/03/22 14:46 RDW 18.0 % (12.0-14.8) H 05/03/22 14:46 Plt Count 213 x10E3/uL (150-450) 05/03/22 14:46 MPV 8.8 fl (6.6-10.1) 05/03/22 14:46 Neut % (Auto) 67.7 % (.) 05/03/22 14:46 Lymph % (Auto) 17.2 % (.) 05/03/22 14:46 [place] % (Auto) 9.5 % (.) 05/03/22 14:46 Eos % (Auto) 4.5 % (.) 05/03/22 14:46 Baso % (Auto) 1.1 % (.) 05/03/22 14:46 Neut # (Auto) 5.0 x10E3/uL (1.8-7.7) 05/03/22 14:46 Lymph # (Auto) 1.3 x10E3/uL (1.00-4.8) 05/03/22 14:46 [place] # (Auto) 0.7 x10E3/uL (0.0-0.8) 05/03/22 14:46 Eos # (Auto) 0.3 x10E3/uL (0.0-0.45) 05/03/22 14:46 Baso # (Auto) 0.1 x10E3/uL (0.0-0.2) 05/03/22 14:46 Nucleated RBC % (auto) 0.0 % (0-0.5) 05/03/22 14:46 PHA Creatinine Clear 66.36 05/03/22 14:46 Sodium 136 mmol/L (136-146) 05/03/22 14:46 Potassium 4.3 mmol/L (3.5-5.1) 05/03/22 14:46 Chloride 103 mmol/L (95-114) 05/03/22 14:46 Carbon Dioxide 25.6 mmol/L (22.0-30.0) 05/03/22 14:46 Anion Gap 11.7 mEq/L (6.0-15.0) 05/03/22 14:46 BUN 20 mg/dL (9-23) 05/03/22 14:46 Creatinine 1.59 mg/dL (0.64-1.27) H 05/03/22 14:46 POC Creatinine 1.7 mg/dl (0.6-1.3) H 05/03/22 14:47 POC eGFR Amer 50 05/03/22 14:47 POC eGFR Non-Afric Amer 41 05/03/22 14:47 Est GFR ( Amer) 54 mL/Min 05/03/22 14:46 Est GFR (Non-Af Amer) 44 mL/Min 05/03/22 14:46 Glucose 84 mg/dL (70-100) 05/03/22 14:46 POC Glucose 83 mg/dl 05/03/22 14:39 Calcium 8.2 mg/dL (8.2-10.2) 05/03/22 14:46 Magnesium 2.1 mg/dL (1.6-2.6) 05/03/22 14:46 Troponin I High Sens 4 pg/mL (0-20) 05/03/22 14:46 B-Natriuretic Peptide 20.0 pg/mL (5-100) 05/03/22 14:46 Urine Color Yellow (Yellow) 05/03/22 15:55 Urine Appearance Clear (Clear) 05/03/22 15:55 Urine pH 6.0 (5.0-9.0) 05/03/22 15:55 Ur Specific [place] 1.015 (1.001-1.030) 05/03/22 15:55 Urine Protein Negative mg/dL (Negative) 05/03/22 15:55 Urine Glucose (UA) Normal mg/dL (Normal) 05/03/22 15:55 Urine Ketones Negative (Negative) 05/03/22 15:55 Urine Occult Blood Negative (Negative) 05/03/22 15:55 Urine Nitrite Negative (Negative) 05/03/22 15:55 Urine Bilirubin Negative (Negative) 05/03/22 15:55 Urine Urobilinogen Normal mg/dL (Normal) 05/03/22 15:55 Ur Leukocyte Esterase 1+ (Negative) H 05/03/22 15:55 Urine RBC None seen /HPF (0-4) 05/03/22 15:55 Urine WBC 0-1 /HPF (0-4) 05/03/22 15:55 Ur Squamous Epith Cells 1-2 /HPF (0-2) 05/03/22 15:55 Urine Bacteria None seen (None Seen) 05/03/22 15:55 Hyaline Casts 0-8 /LPF (0-8) 05/03/22 15:55 COVID-19 PCR Interp N/A 05/03/22 15:30 SARS Antigen (LFIA) Negative (Negative) 05/03/22 15:30 Microbiology Results Micro: Microbiology - Results from entire visit 05/03/22 15:30 Nasal SARS Antigen (LFIA) - Final A&P - Hospitalist Assessment/Plan (1) Dizziness: (2) Slurred speech: (3) Repeated falls: (4) Obstructive sleep apnea: (5) Chronic kidney disease, stage 3: Plan Patient brought to the emergency room with complaint of fall, dizziness and slurred speech. In the ER his symptoms have resolved and currently denies having dizziness with no focal motor deficit noted on examination. Given his presentation he will be kept in the hospital for stroke work-up. Will consult neurology and obtain 2D echocardiogram, carotid Doppler, A1c and lipid profile. Continue statin and start him on aspirin. Consult PT/OT. Check for orthostasis. Patient does have history of chronic back pain and arthritis of knees likely contributing to his fall. DVT prophylaxis. Fall precaution. Documented By: Cathy Zavala MD 05/03/22 1843 Signed By: <Electronically signed by Cathy Zavala MD> 05/03/22 1854 [facility] Work Phone: 1(862) 484-836311-01-2022 Miscellaneous Notes* Telephone Encounter - Heena Andino Perpetual Inventory Clerk - 04/29/2022 4:06 PM EDT pt returning RN call per message below. * Telephone Encounter - Anni Douglas RN - 04/29/2022 3:24 PM EDT Left message on voicemail for patient to call office back regarding Pre- Procedure Information for spine procedure on 05/13/2022 at [facility]. documented in this [facility]10-27-2022 Miscellaneous Notes* Telephone Encounter - Greta Nunez RN - 04/24/2022 10:39 AM EDT Form signed and faxed to number requested. Faxed verification received. * Telephone Encounter - Samantha Alonzo - 04/23/2022 4:02 PM EDT Received POC from [facility] requesting signature via fax. Scanned into [employer]. documented in this [facility]10-25-2022 NoteHNO ID: [id number] Author: Loyda Steele MD Service: ? Author Type: Physician Type: Progress Notes Filed: 04/22/2022 6:57 AM Note Text: SPINE SURGERY FOLLOW UP SERVICE DATE: 04/22/2022 SURGERY DATE: 12/31/21 Revision L4-pelvis instrumented fusion Mary Jimenez is seen for 3 month post operative follow up. Since last time I saw the patient reports that his pain has been alternating to the legs. It seems that the pain is better controlled. No issues the incision. No new symptoms. ANTIPLATELET OR ANTICOAGULATION STATUS: No Patient Entered Questionnaires Spine Questions 02/07/2022 04/09/2022 04/20/2022 Pain Location: Leg Lower back Lower back Pain Duration: - More than 5 years - Pain over last 6 months: - Every day or nearly every day in the past 6 months - Symptoms from neck/cervical spine: No No No Employment Status: - Disabled for reasons other than back pain - Involved in law suit/legal claim: - - - Neck Questionnaires 10/02/2021 Benzel Modified SCARLETT Score Incomplete PROMIS Score Percentiles Physical Health 12/04/2021 01/14/2022 04/09/2022 Physical Function Percentile 73 0 0 Sleep Percentile 50 2 0 Fatigue Percentile 98 79 0 Pain Interference Percentile 0 0 0 PROMIS SOCIAL ROLE SCORE 12/04/2021 01/14/2022 04/09/2022 Social Role Satisfaction Percentile 1 1 2 PROMIS Global Health Scale 12/04/2021 02/25/2022 03/30/2022 Physical Health Percentile 7 7 1 Mental Health Percentile 3 3 3 Percentiles provide an indication of how the patient's score ranks in relation to the general population. Higher percentile rankings indicate better function/quality of life. 50th percentile is the average of the general population and indicates half of respondents had a worse score. Depression Screening: PHQ-9 01/14/2022 02/07/2022 04/09/2022 Score 10 10 21 PHQ-9 Self-harm Question 01/14/2022 02/07/2022 04/09/2022 Thoughts that you would be better off , or of hurting yourself in some way 0 0 0 PHQ-9 Self-Harm (Item 9) response options: 0 Not at all 1 Several days 2 More than half the days 3 Nearly every day PHQ-9 Levels: 0-4 No to mild depression 5-9 Mild depression 10-14 Moderate depression 15-19 Moderately severe depression 20-27 Severe depression PHYSICAL EXAM: BP 147/74 (BP Site: Right Arm, BP Position: Supine, BP Cuff Size: Regular Adult) Pulse 78 Temp 36.9 ?C (98.5 ?F) (Temporal) Ht 175.3 cm (5' 9 ) Wt 122.5 kg (270 lb) BMI 39.87 kg/m? Oriented x3 PERRL FS Motor: UE D 5/5, B 5/5, T 5/5, G 5/5, HI 5/5 LE HF 5/5, KE 5/5, DF 5/5, PF 5/5, EHL 5/5 Incision C/D/I DATA REVIEW No additional images reviewed today ASSESSMENT/PLAN (M54.16) Radiculopathy, lumbar region (primary encounter diagnosis) Incision healed Medrol Dosepak ordered Plan for caudal injection by Dr. Hernandez Follow up: 2 months SIGNATURE: Loyda Steele MD PATIENT NAME: Mary Jimenez DATE: April 22, 2022 TIME: 6:55 AM [phone] Miscellaneous Notes* Telephone Encounter - Christine Gutierrez PA-C - 04/17/2022 3:41 PM EDT PT order placed. He can alternate Tylenol and ibuprofen as long as he follows dosing instructions on the bottle. His creatinine on his last BMP was normal so as long as he is taking NSAIDs within their normal limits he should be okay. I do not see a liver function test but if he is concerned about the Tylenol Ican order one for him. * Telephone Encounter - Greta Nunez RN - 04/17/2022 3:16 PM EDT Will forward for review. * Telephone Encounter - Gale De León - 04/17/2022 11:58 AM EDT Received call from nurse, calling on behalf of patient. She states that he wants to know if a outpatient PT order can be uploaded to his mychart. He also was wondering if he can get a sooner appt than June to come in the office and discuss his medication. States he is off narcotics but is scare of taking ibuprofen and tylenol. Please return patients call to [phone]. [facility] Miscellaneous Notes* Telephone Encounter - Greta Nunez RN - 04/14/2022 10:18 AM EDT Will forward for review. [facility] Evaluation note* Encounter Date Diagnosis Assessment Notes Treatment Notes Treatment Clinical Notes Mar, Counseled about COVID-19 virus infection (ICD-10 - Z71.89) I encouraged him to get the bivalent COVID booster soon Flu shot given today Mar, Essential (primary) hypertension (ICD-10 - I10) Stable on current meds Mar, Chronic pain (ICD-10 - G89.29) See dictation below Mar, Mixed hyperlipidemia (ICD-10 - E78.2) We discussed his lipids are worse likely because he made his statin every other day. I encouraged him to go back to daily. Discussed cost really should not be an issue because his statin is generic. He will talk to the druggist and, if needed, he could ask them whether there would be an even cheaper different generic statin. If he cannot afford it, he will let us know. Mar, Obstructive sleep apnea (ICD-10 - G47.33) Stable on CPAP, continue sleep clinic Mar, Morbid obesity (ICD-10 - E66.01) We discussed his frustration with his weight gain. He lost significant weight when he was medically ill in the hospital. He has gained that back pretty much to his previous baseline. Once he can get back to the gym (cleared by spine surgery) hopefully he will do better. Mar, Impaired glucose tolerance (ICD-10 - R73.02) Stable. Risk of diabetes discussed Mar, P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) He will continue with [facility] back surgeon for follow-up and also possible back injection. We did discuss that with open drainage to his back ongoing infection is in the differential, he did have I&D of postsurgical infected back before. He will continue to follow with surgery and he states that at this time they do not seem worried that this is infection. Mar, Right knee pain, unspecified chronicity (ICD-10 - M25.561) We discussed that infection post surgery or in an artificial joint is always in the differential. Discussed I had not specifically done testing to evaluate that possibility prior to this visit. His CBC is normal. I did not order a sed rate, I I am concerned it would be elevated no matter what, he has other reasons for that including his chronic back pain and current drainage. We discussed it is not my specialty but further work-up may include knee joint aspiration, culture, sensitivity by orthopedics. He will await the upcoming MRI and follow-up with Dr. Holley. I will send today's EMR note which includes his labs to Dr. Holley. Mar, Renal failure, unspecified chronicity (ICD-10 - N19) His renal labs were a lot worse when he was septic in the hospital following back procedures. He is recovering nicely from that, back to his previous baseline. We will observe but I discussed that, at this point, he does not have significant renal failure. 14 Mar, 2022 Chronic rhinitis (ICD-10 - J31.0) 14 Mar, 2022 Stroke (ICD-10 - I63.9) 14 Mar, 2022 Functional dyspepsia (ICD-10 - K30) 14 Mar, 2022 Nausea (ICD-10 - R11.0) Mar, Encounter for long-term (current) use of medications (ICD-10 - Z79.899) Mar, Flu vaccine need (ICD-10 - Z23) 14 Mar, 2022 Other RTO 6 months preceded by fasting CBC, BMP, hepatic panel, lipid profile, hemoglobin A1c, iron, B12, folate, ferritin, reticulocyte count and sooner as needed or pending above. Please send today's EMR note to Dr. Holley of orthopedics. , Fluticasone nasal spray material was published [employer] Other 10-12-2022 NoteHNO ID: [id number] Author: Effie Beltran PA-C Service: ? Author Type: Physician Stamp Analyst Type: Progress Notes Filed: 04/09/2022 2:14 PM Note Text: SPINE SURGERY ESTABLISHED DATE OF SERVICE: 04/09/2022 DATE OF LAST VISIT: 04/02/2022 SUBJECTIVE: HPI:Mary Jimenez is a 61 year old male presenting with sister. He is doing well today. Continues to have right leg pain. Has been trying to only take 2 norco per day. He wants to start therapy to see if it will help his leg, but he still has home care coming for dressing changes. He states his wound vac got ripped off on Thursday when he got off of the couch. His sister notes the inversion table was out at home; he states he drug it out himself. He is agreeable to injection, but states he needs it with sedation. He attempted before without sedation and nearly jumped off the table. PAIN EVALUATION 04/09/2022 1252 Pain Level: 3 while laying Pain Location: Back-Lower Description: Aching;Sore Duration Amount of Time: 1 Duration Units: Weeks Frequency: Continuous Intervention/Comfort measure: Medication AMBULATORY STATUS: Impaired Community Distances ANTIPLATELET OR ANTICOAGULATION STATUS: Yes plavix PREVIOUS CONSERVATIVE TREATMENTS: Opioids Muscle relaxer Steroids lyrica REVIEW OF SYSTEMS: GENERAL: No weight loss or malaise MUSCULOSKELETAL: see HPI NEURO: No history of headaches, syncope, paralysis, seizures or tremors MEDICATIONS: QUEtiapine (SEROQUEL) 25 mg tablet TAKE ONE TABLET BY MOUTH EVERY NIGHT AT BEDTIME lactobacillus combination no.4 3 billion cell cap Take 1 capsule by mouth once daily. Pregabalin (LYRICA) 200 mg capsule Take 1 capsule by mouth three times daily for 90 days. clopidogrel (PLAVIX) 75 mg tablet Take 1 tablet by mouth once daily. Please hold this medication until post op day 10 telmisartan (MICARDIS) 80 mg tablet Take 80 mg by mouth once daily. docusate sodium (COLACE) 100 mg capsule Take 1 capsule by mouth twice daily. docosahexaenoic acid/epa (FISH OIL ORAL) Take 5 capsules by mouth once daily. fremanezumab-vfrm (AJOVY SYRINGE SUBCUTANEOUS) Inject 250 mg/mL subcutaneously. every 28 days for migraines CHROMIUM PICOLINATE ORAL Take 800 mcg by mouth once daily. MAGNESIUM ORAL Take 400 mg by mouth once daily. finasteride (PROSCAR) 5 mg tablet Take 5 mg by mouth daily at bedtime. CALCIUM CARBONATE/VITAMIN D3 (CALCIUM 600 + D ORAL) Take 1 tablet by mouth once daily. LACTOBACILLUS ACIDOPHILUS (PROBIOTIC ACIDOPHILUS ORAL) Take 1 capsule by mouth once daily. doxepin capsule 10 mg Take 10 mg by mouth daily at bedtime. Takes 2 tabs at bedtime dicyclomine (BENTYL) 10 mg capsule Take 20 mg by mouth as needed. 4 times daily as needed eletriptan (RELPAX) 40 mg tablet Take 40 mg by mouth as needed. may repeat in 2 hours if necessary atorvastatin (LIPITOR) 80 mg tablet Take 80 mg by mouth daily at bedtime. DULoxetine (CYMBALTA) 30 mg capsule Take 1 capsule by mouth once daily. Take with 60 mg for 90 mg total dose. (Patient taking differently: Take 30 mg by mouth three times daily. Takes 30 mg three times daily per patient) baclofen (LIORESAL) 20 mg tablet Take 20 mg by mouth daily at bedtime. furosemide (LASIX) 40 mg tablet Take 40 mg by mouth once daily. doxazosin (CARDURA) 4 mg tablet Take 4 mg by mouth once daily. metoprolol succinate XL, long acting, (TOPROL XL) 50 mg 24 hr tablet Take 50 mg by mouth once daily. cyanocobalamin (VITAMIN B-12) 1,000 mcg tab Take 1,000 mcg by mouth once daily. fluticasone (FLONASE) 50 mcg/actuation nasal spray Use 2 Sprays in each nostril twice daily. Patient Entered Questionnaires Spine Questions 01/26/2022 02/07/2022 04/09/2022 Pain Location: Lower back Leg Lower back Pain Duration: - - More than 5 years Pain over last 6 months: - - Every day or nearly every day in the past 6 months Symptoms from neck/cervical spine: No No No Employment Status: - - Disabled for reasons other than back pain Involved in law suit/legal claim: - - - Neck Questionnaires 10/02/2021 Benzel Modified SCARLETT Score Incomplete PROMIS Score Percentiles Physical Health 12/04/2021 01/14/2022 04/09/2022 Physical Function Percentile 73 0 0 Sleep Percentile 50 2 0 Fatigue Percentile 98 79 0 Pain Interference Percentile 0 0 0 PROMIS SOCIAL ROLE SCORE 12/04/2021 01/14/2022 04/09/2022 Social Role Satisfaction Percentile 1 1 2 PROMIS Global Health Scale 12/04/2021 02/25/2022 03/30/2022 Physical Health Percentile 7 7 1 Mental Health Percentile 3 3 3 Percentiles provide an indication of how the patient's score ranks in relation to the general population. Higher percentile rankings indicate better function/quality of life. 50th percentile is the average of the general population and indicates half of respondents had a worse score. Depression Screening: PHQ-9 01/14/2022 02/07/2022 04/09/2022 Score 10 10 21 PHQ-9 Self-harm Question 7 (more content not included)...[facility] 04-09-[facility] Instructions* Patient Instructions* Effie Beltran PA-C - 04/09/2022 1:42 PM EDT Please update us tomorrow regarding drainage on dressing. Then send a picture via [employer] on Monday 04/16. PT order is in chart. Will wait to schedule until no longer need dressing changes. (Can't do outpatient therapy if having homecare). Provider to call to see about sedation for injections You can take ibuprofen 800mg every 8 hours and rotate with tylenol 1000mg every 8 hours. For example: Start ibuprofen at 8 am, take tylenol at 12, take ibuprofen at 4 pm, take tylenol at 8 pm, take ibuprofen at 12 AM. Take ibuprofen with food. Take omeprazole (prilosec) while taking ibuprofen. [facility] in this [facility] [place] History of Present illness Narrative* Effie Beltran PA-C - 04/09/2022 1:23 PM EDT Images from the original note were not included. SPINE SURGERY ESTABLISHED DATE OF SERVICE: 04/09/2022 DATE OF LAST VISIT: 04/02/2022 SUBJECTIVE: HPI:Mary Jimenez is a 61 year old male presenting with sister. He is doing well today. Continues to have right leg pain. Has been trying to only take 2 norco per day. He wants to start therapy to see if it will help his leg, but he still has home care coming fordressing changes. He states his wound vac got ripped off on Thursday when he got off of the couch. His sister notes the inversion table was out at home; he states he drug it out himself. He is agreeable to injection, but states he needs it with sedation. He attempted before without sedation and nearly jumped off the table. PAIN EVALUATION 04/09/2022 1252 Pain Level: 3 while laying Pain Location: Back-Lower Description: Aching;Sore Duration Amount of Time: 1 Duration Units: Weeks Frequency: Continuous Intervention/Comfort measure: Medication AMBULATORY STATUS: Impaired Community Distances ANTIPLATELET OR ANTICOAGULATION STATUS: Yes plavix PREVIOUS CONSERVATIVE TREATMENTS: Opioids Muscle relaxer Steroids lyrica REVIEW OF SYSTEMS: GENERAL: No weight loss or malaise MUSCULOSKELETAL: see HPI NEURO: No history of headaches, syncope, paralysis, seizures or tremors MEDICATIONS: QUEtiapine (SEROQUEL) 25 mg tablet TAKE ONE TABLET BY MOUTH EVERY NIGHT AT BEDTIME lactobacillus combination no.4 3 billion cell cap Take 1 capsule by mouth once daily. Pregabalin (LYRICA) 200 mg capsule Take 1 capsule by mouth three times daily for 90 days. clopidogrel (PLAVIX) 75 mg tablet Take 1 tablet by mouth once daily. Please hold this medication until post op day 10 telmisartan (MICARDIS) 80 mg tablet Take 80 mg by mouth once daily. docusate sodium (COLACE) 100 mg capsule Take 1 capsule by mouth twice daily. docosahexaenoic acid/epa (FISH OIL ORAL) Take 5 capsules by mouth once daily. fremanezumab-vfrm (AJOVY SYRINGE SUBCUTANEOUS) Inject 250 mg/mL subcutaneously. every 28 days for migraines CHROMIUM PICOLINATE ORAL Take 800 mcg by mouth once daily. MAGNESIUM ORAL Take 400 mg by mouth once daily. finasteride (PROSCAR) 5 mg tablet Take 5 mg by mouth daily at bedtime. CALCIUM CARBONATE/VITAMIN D3 (CALCIUM 600 + D ORAL) Take 1 tablet by mouth once daily. LACTOBACILLUS ACIDOPHILUS (PROBIOTIC ACIDOPHILUS ORAL) Take 1 capsule by mouth once daily. doxepin capsule 10 mg Take 10 mg by mouth daily at bedtime. Takes 2 tabs at bedtime dicyclomine (BENTYL) 10 mg capsule Take 20 mg by mouth as needed. 4 times daily as needed eletriptan (RELPAX) 40 mg tablet Take 40 mg by mouth as needed. may repeat in 2 hours if necessary atorvastatin (LIPITOR) 80 mg tablet Take 80 mg by mouth daily at bedtime. DULoxetine (CYMBALTA) 30 mg capsule Take 1 capsule by mouth once daily. Take with 60 mg for 90 mg total dose. (Patient taking differently: Take 30 mg by mouth three times daily. Takes 30 mg three times daily per patient) baclofen (LIORESAL) 20 mg tablet Take 20 mg by mouth daily at bedtime. furosemide (LASIX) 40 mg tablet Take 40 mg by mouth once daily. doxazosin (CARDURA) 4 mg tablet Take 4 mg by mouth once daily. metoprolol succinate XL, long acting, (TOPROL XL) 50 mg 24 hr tablet Take 50 mg by mouth once daily. cyanocobalamin (VITAMIN B-12) 1,000 mcg tab Take 1,000 mcg by mouth once daily. fluticasone (FLONASE) 50 mcg/actuation nasal spray Use 2 Sprays in each nostril twice daily. Patient Entered Questionnaires Spine Questions 01/26/2022 02/07/2022 04/09/2022 Pain Location: Lower back Leg Lower back Pain Duration: - - More than 5 years Pain over last 6 months: - - Every day or nearly every day in the past 6 months Symptoms from neck/cervical spine: No No No Employment Status: - - Disabled for reasons other than back pain Involved in law suit/legal claim: - - - Neck Questionnaires 10/02/2021 Benzel Modified SCARLETT Score Incomplete PROMIS Score Percentiles Physical Health 12/04/2021 01/14/2022 04/09/2022 Physical Function Percentile 73 0 0 Sleep Percentile 50 2 0 Fatigue Percentile 98 79 0 Pain Interference Percentile 0 0 0 PROMIS SOCIAL ROLE SCORE 12/04/2021 01/14/2022 04/09/2022 Social Role Satisfaction Percentile 1 1 2 PROMIS Global Health Scale 12/04/2021 02/25/2022 03/30/2022 Physical Health Percentile 7 7 1 Mental Health Percentile 3 3 3 Percentiles provide an indication of how the patient's score ranks in relation to the general population. Higher percentile rankings indicate better function/quality of life. 50th percentile is the average of the general population and indicates half of respondents had a worse score. Depression Screening: PHQ-9 01/14/2022 02/07/2022 04/09/2022 Score 10 10 21 PHQ-9 Self-harm Question 01/14/2022 02/07/2022 04/09/2022 Thoughts that you would be better off , or of hurting yourself in some way 0 0 0 PHQ-9 Self-Harm (Item 9) response options: 0 Not at all 1 Several days 2 More than half the days 3 Nearly every day PHQ-9 Levels: 0-4 No to mild depression 5-9 Mild depression 10-14 Moderate depression 15-19 Moderately severe depression 20-27 Severe depression OBJECTIVE: PHYSICAL EXAM: Temp (Src) 98.8 (Temporal) GENERAL APPEARANCE: Obese. NEURO PSYCH: Patient oriented to person, place, and time. Mood pleasant. Benign affect. MUSCULOSKELETAL VISUAL INSPECTION CERVICAL: WNL THORACIC: WNL LUMBAR: stitch pulled through right side of skin and is on left side of incision. About 1mm of granular tissue present. No drainage. Suture removed MOTOR:VIN NEURO TESTS: None DATA REVIEW:Diagnostic tests reviewed for today's visit, films/specimens were personally reviewed by me: [facility] records independently reviewed ASSESSMENT/PLAN Mary Jimenez is a 61 year old male who presents for wound check. Prevena came off on Thursday. Incision without drainage. Recommend keeping it covered with ABD and tape. Changing daily. Once there is no drainage he can start PT. mechanical expert coming tomorrow for dressing change, recommend letting us know if there is any drainage on dressing. Unable to come for follow up next Thursday, he will send an updated wound picture via mychart. Discussed rotating tylenol and ibuprofen. If ibuprofen not helpful discussed prescription NSAID. Recommend taking PPI while on NSAIDS. Recommended avoiding inversion table until incision healed. I have reached out to Dr Bhandari to see if he does injections with se dation. Will notify patient when I have found a provider who will do injection with sedation. Answered all of Mary and his sister's questions. Agreeable to current plan. I spent a total of 45 minutes on the date of the service which included preparing to see the patient, [id number] patient care, completing clinical documentation, performing a medically appropriate examination, counseling and educating the patient/family/caregiver, and communicating with other HCPs (not separately reported). SIGNATURE: Effie Beltran PA-C PATIENT NAME: Mary Jimenez DATE: April 09, 2022 TIME: 1:23 PM PAGER: documented in this [facility]22 NoteHNO ID: [id number] Author: Amna Cornelius MD Service: ? Author Type: Resident Type: Progress Notes Filed: 04/08/2022 3:34 PM Note Text: SPINE SURGERY FOLLOW UP SERVICE DATE: 04/02/2022 SURGERY DATE: 12/31/21 Revision L4-pelvis instrumented fusion Mary Jimenez is seen for 3 month post operative follow up. Has had a small amount of drainage from his incision and an area of granulation tissue. No fevers or chills. Complains of continued back pain but has been working in his garden. PAIN EVALUATION 04/02/2022 1502 Pain Level: 8 Pain Location: Back-Lower Description: Shooting Duration Amount of Time: 8 Duration Units: Months Frequency: Continuous Intervention/Comfort measure: Reposition Pain Radiation: Pain does not radiate Aggravating Factors: Walking Alleviating Factors: Lying supine Pain Ratio: Pain in the back is greater than in the leg ANTIPLATELET OR ANTICOAGULATION STATUS: No Patient Entered Questionnaires Spine Questions 01/14/2022 01/26/2022 02/07/2022 Pain Location: Lower back Lower back Leg Pain Duration: - - - Pain over last 6 months: - - - Symptoms from neck/cervical spine: No No No Employment Status: Disabled for reasons other than back pain - - Involved in law suit/legal claim: - - - Neck Questionnaires 10/02/2021 Benzel Modified SCARLETT Score Incomplete PROMIS Score Percentiles Physical Health 10/02/2021 12/04/2021 01/14/2022 Physical Function Percentile 0 73 0 Sleep Percentile 2 50 2 Fatigue Percentile 4 98 79 Pain Interference Percentile 0 0 0 PROMIS SOCIAL ROLE SCORE 10/02/2021 12/04/2021 01/14/2022 Social Role Satisfaction Percentile 1 1 1 PROMIS Global Health Scale 12/04/2021 02/25/2022 03/30/2022 Physical Health Percentile 7 7 1 Mental Health Percentile 3 3 3 Percentiles provide an indication of how the patient's score ranks in relation to the general population. Higher percentile rankings indicate better function/quality of life. 50th percentile is the average of the general population and indicates half of respondents had a worse score. Depression Screening: PHQ-9 12/04/2021 01/14/2022 02/07/2022 Score 9 10 10 PHQ-9 Self-harm Question 12/04/2021 01/14/2022 02/07/2022 Thoughts that you would be better off , or of hurting yourself in some way 0 0 0 PHQ-9 Self-Harm (Item 9) response options: 0 Not at all 1 Several days 2 More than half the days 3 Nearly every day PHQ-9 Levels: 0-4 No to mild depression 5-9 Mild depression 10-14 Moderate depression 15-19 Moderately severe depression 20-27 Severe depression PHYSICAL EXAM: BP 125/83 Pulse 78 Ht 175.3 cm (5' 9 ) BMI 39.80 kg/m? GENERAL APPEARANCE: Well nourished, well developed, and no apparent distress. NEURO PSYCH: Patient oriented to person, place, and time. Mood pleasant. Benign affect. MUSCULOSKELETAL VISUAL INSPECTION CERVICAL: WNL THORACIC: WNL LUMBAR: WNL MOTOR: 5/5 in all muscle groups. SENSORY: Normal sensory exam GAIT: Normal. REFLEXES: +2 to bilateral U/L extremities. PROPRIOCEPTION: Normal. LONG TRACT SIGNS: No clonus. No Hoffmans. STRAIGHT LEG TEST: Not Tested. L'HERMITTES SIGN: Not tested. SPURLING'S TEST: Not tested. DATA REVIEW [facility] records independently reviewed ASSESSMENT/PLAN L5/S1 psuedoarthrosis Mary iJmenez will continue with medical management of his/her condition. Granulation tissue excised and Prevena vac applied Follow up: 1 week for wound check Pain management for RAKESH consult I reviewed the history and physical obtained and documented by the resident and I personally participated in the maldonado components. SIGNATURE: Loyda Steele MD PATIENT NAME: Mary Jimenez DATE: April 02, 2022 TIME: 4:04 PM PAGER:[phone] Miscellaneous Notes* Telephone Encounter - Christine Gutierrez PA-C - 04/01/2022 12:32 PM EDT I called Alfredo on 04/01/2022 at 12:32 PM. Left a voicemail informing him that I have discussed overall plan of care going forward with Dr. Steele. Will send [employer] message detailing plan. Advised to respond to message or call back with questions. documented in this encounterSelect Medical [facility] [place]09-23-2022 Miscellaneous Notes* Telephone Encounter - Gale De León - 03/21/2022 11:38 AM EDT Patient called to let office know that he had his CT done today and needs an appt to go over it. Héctor wants a refill for his Posen. * Telephone Encounter - Samantha Alonzo - 03/21/2022 10:[address] Lumbar [facility]. Scanned into [employer] via on-base. documented in this encounterSelect Medical Specialty Hospital [facility] [place]09-19-2022 Evaluation note* Encounter Date Diagnosis Assessment Notes Treatment Notes Treatment Clinical Notes Feb, Nausea (ICD-10 - R11.0) [facility] Other 09-15-2022 Miscellaneous Notes* Telephone Encounter - Greta Nunez RN - 03/13/2022 12:[address] faxed to number provided. Faxed verification received. * Telephone Encounter - Greta Nunez RN - 03/13/2022 9:38 AM EDT Called [facility] and was informed to fax the order to central scheduling at fax number . Once faxed they informed to have the patient call to schedule. documented in this encounterSelect Medical Special[facility] [place]09-15-2022 Miscellaneous Notes* Telephone Encounter - Effie Beltran PA-C - 03/13/2022 9:52 AM EDT Patient responded in new encounter. documented in this encounterSelect Medical Specialty Hospital - [place]09-14-2022 NoteHNO ID: [id number] Author: Loyda Steele MD Service: ? Author Type: Physician Type: Progress Notes Filed: 03/17/2022 3:17 PM Note Text: SPINE SURGERY FOLLOW UP SERVICE DATE: 03/17/2022 SURGERY DATE: 12/31/2021 s/p L4-pelvis revision fusion Mary Jimenez is seen for 2 month post operative follow up. This is a virtual visit Patient reports ongoing low back and bilateral leg pain L5 distribution. Wound has been mildly draining but no signs of infection yet. Patient is frustrated with his back and leg pain. ANTIPLATELET OR ANTICOAGULATION STATUS: No Patient Entered Questionnaires Spine Questions 01/14/2022 01/26/2022 02/07/2022 Pain Location: Lower back Lower back Leg Pain Duration: - - - Pain over last 6 months: - - - Symptoms from neck/cervical spine: No No No Employment Status: Disabled for reasons other than back pain - - Involved in law suit/legal claim: - - - Neck Questionnaires 10/02/2021 Benzel Modified SCARLETT Score Incomplete PROMIS Score Percentiles Physical Health 10/02/2021 12/04/2021 01/14/2022 Physical Function Percentile 0 73 0 Sleep Percentile 2 50 2 Fatigue Percentile 4 98 79 Pain Interference Percentile 0 0 0 PROMIS SOCIAL ROLE SCORE 10/02/2021 12/04/2021 01/14/2022 Social Role Satisfaction Percentile 1 1 1 PROMIS Global Health Scale 08/07/2021 12/04/2021 02/25/2022 Physical Health Percentile 4 7 7 Mental Health Percentile 13 3 3 Percentiles provide an indication of how the patient's score ranks in relation to the general population. Higher percentile rankings indicate better function/quality of life. 50th percentile is the average of the general population and indicates half of respondents had a worse score. Depression Screening: PHQ-9 12/04/2021 01/14/2022 02/07/2022 Score 9 10 10 PHQ-9 Self-harm Question 12/04/2021 01/14/2022 02/07/2022 Thoughts that you would be better off , or of hurting yourself in some way 0 0 0 PHQ-9 Self-Harm (Item 9) response options: 0 Not at all 1 Several days 2 More than half the days 3 Nearly every day PHQ-9 Levels: 0-4 No to mild depression 5-9 Mild depression 10-14 Moderate depression 15-19 Moderately severe depression 20-27 Severe depression PHYSICAL EXAM: There were no vitals taken for this visit. Limited due to virtual visit DATA REVIEW No additional images reviewed today ASSESSMENT/PLAN (M54.16) Radiculopathy, lumbar region (primary encounter diagnosis) (M54.16) Radiculopathy of lumbar region (S32.009K) Lumbar pseudoarthrosis Given ongoing low back bilateral leg pain will obtain CT lumbar spine to evaluate for any lucency of the hardware. Last x-ray appears stable. Posen ordered Follow up: Following above I spent 15-minute discussing patient's current symptoms and future plans SIGNATURE: Loyda Steele MD PATIENT NAME: Mary Prieto Barbara DATE: March 12, 2022 TIME: 4:03 PM PAGER:[facility] [phone] Miscellaneous Notes* Telephone Encounter - Greta Nunez RN - 03/12/2022 12:27 PM EDT Noted. * Telephone Encounter - Merced Javed - 03/12/2022 12:11 PM EDT Patient has an appointment today. He had a creatinine level done outside the clinic. The office were he had it done is closed. He said the level is 1.33. documented in this encounterSelect Medical Specialty [facility] [place]09-08-2022 Miscellaneous Notes* Telephone Encounter - Greta Nunez RN - 03/06/2022 8:26 AM EDT Medication not prescribed from this office. Course of therapy completed during post hospitalization period. * Telephone Encounter - Mary Grace Alejo - 03/05/2022 4:08 PM EDT Call from pharmacy requesting refill. Requested Prescriptions Pending Prescriptions Disp Refills QUEtiapine (SEROQUEL) 25 mg tablet 10 tablet 0 Sig: Take 1 tablet by mouth twice daily as needed (Delirium) for up to 5 days. [facility] Patient last seen 2021 [facility] documented in this encounterSelect Medical Specialty Hospital - [place]09-01-2022 NoteHNO ID: [id number] Author: Christy Cat PA-C Service: ? Author Type: Physician Stamp Analyst Type: Progress Notes Filed: 02/27/2022 11:37 AM Note Text: SPINE SURGERY ESTABLISHED DATE OF SERVICE: 02/27/2022 DATE OF LAST VISIT: 02/13/2022 SUBJECTIVE: HPI:Mary Jimenez is a 61 year old male presenting alone. He is s/p L4-pelvis revision on 12/31/21. He states the drainage from his incision has gotten worse. The other day he could feel that it drained down to his underwear. Today, the gauze was not completely soaked but there was still moderate amount of yellow drainage. He denies fever or chills. His most comfortable position is lying prone. Still taking hydrocodone for pain. PAIN EVALUATION No data found in the last 1 encounters. REVIEW OF SYSTEMS: GENERAL: No weight loss or malaise MUSCULOSKELETAL: Negative for joint pain, swelling or muscle pain NEURO: No history of headaches, syncope, paralysis, seizures or tremors MEDICATIONS: HYDROcodone-acetaminophen (NORCO) 5-325 mg per tablet Take 1 tablet by mouth every 6 hours as needed for pain for up to 7 days. Pregabalin (LYRICA) 200 mg capsule Take 1 capsule by mouth three times daily for 90 days. clopidogrel (PLAVIX) 75 mg tablet Take 1 tablet by mouth once daily. Please hold this medication until post op day 10 acetaminophen (TYLENOL) 500 mg tablet Take 2 tablets by mouth every 8 hours as needed for pain. telmisartan (MICARDIS) 80 mg tablet Take 80 mg by mouth once daily. docusate sodium (COLACE) 100 mg capsule Take 1 capsule by mouth twice daily. docosahexaenoic acid/epa (FISH OIL ORAL) Take 5 capsules by mouth once daily. fremanezumab-vfrm (AJOVY SYRINGE SUBCUTANEOUS) Inject 250 mg/mL subcutaneously. every 28 days for migraines CHROMIUM PICOLINATE ORAL Take 800 mcg by mouth once daily. MAGNESIUM ORAL Take 400 mg by mouth once daily. finasteride (PROSCAR) 5 mg tablet Take 5 mg by mouth daily at bedtime. CALCIUM CARBONATE/VITAMIN D3 (CALCIUM 600 + D ORAL) Take 1 tablet by mouth once daily. LACTOBACILLUS ACIDOPHILUS (PROBIOTIC ACIDOPHILUS ORAL) Take 1 capsule by mouth once daily. doxepin capsule 10 mg Take 10 mg by mouth daily at bedtime. Takes 2 tabs at bedtime dicyclomine (BENTYL) 10 mg capsule Take 20 mg by mouth as needed. 4 times daily as needed eletriptan (RELPAX) 40 mg tablet Take 40 mg by mouth as needed. may repeat in 2 hours if necessary atorvastatin (LIPITOR) 80 mg tablet Take 80 mg by mouth daily at bedtime. DULoxetine (CYMBALTA) 30 mg capsule Take 1 capsule by mouth once daily. Take with 60 mg for 90 mg total dose. (Patient taking differently: Take 30 mg by mouth three times daily. Takes 30 mg three times daily per patient) baclofen (LIORESAL) 20 mg tablet Take 20 mg by mouth daily at bedtime. furosemide (LASIX) 40 mg tablet Take 40 mg by mouth once daily. doxazosin (CARDURA) 4 mg tablet Take 4 mg by mouth once daily. metoprolol succinate XL, long acting, (TOPROL XL) 50 mg 24 hr tablet Take 50 mg by mouth once daily. cyanocobalamin (VITAMIN B-12) 1,000 mcg tab Take 1,000 mcg by mouth once daily. fluticasone (FLONASE) 50 mcg/actuation nasal spray Use 2 Sprays in each nostril twice daily. lactobacillus combination no.4 3 billion cell cap Take 1 capsule by mouth once daily. clindamycin (CLEOCIN) 150 mg capsule Take 1 capsule by mouth three times daily for 7 days. HYDROcodone-acetaminophen (NORCO) 5-325 mg per tablet Take 1 tablet by mouth every 8 hours as needed for pain for up to 7 days. QUEtiapine (SEROQUEL) 25 mg tablet Take 1 tablet by mouth daily at bedtime. QUEtiapine (SEROQUEL) 25 mg tablet Take 1 tablet by mouth twice daily as needed (Delirium) for up to 5 days. Patient Entered Questionnaires Spine Questions 01/14/2022 01/26/2022 02/07/2022 Pain Location: Lower back Lower back Leg Pain Duration: - - - Pain over last 6 months: - - - Symptoms from neck/cervical spine: No No No Employment Status: Disabled for reasons other than back pain - - Involved in law suit/legal claim: - - - Neck Questionnaires 10/02/2021 Benzel Modified SCARLETT Score Incomplete PROMIS Score Percentiles Physical Health 10/02/2021 12/04/2021 01/14/2022 Physical Function Percentile 0 73 0 Sleep Percentile 2 50 2 Fatigue Percentile 4 98 79 Pain Interference Percentile 0 0 0 PROMIS SOCIAL ROLE SCORE 10/02/2021 12/04/2021 01/14/2022 Social Role Satisfaction Percentile 1 1 1 PROMIS Global Health Scale 08/07/2021 12/04/2021 02/25/2022 Physical Health Percentile 4 7 7 Mental Health Percentile 13 3 3 Percentiles provide an indication of how the patient's score ranks in relation to the general population. Higher percentile rankings indicate better function/quality of life. 50th percentile is the average of the general population and indicates half of respondents had a worse score. Depression Screening: PHQ-9 12/04/2021 01/14/2022 02/07/2022 Score 9 10 10 PHQ-9 Self-harm Question (more content not included)...[facility] History of Present illness Narrative* Christy Cat PA-C - 02/27/2022 11:27 AM EDT SPINE SURGERY ESTABLISHED DATE OF SERVICE: 02/27/2022 DATE OF LAST VISIT: 02/13/2022 SUBJECTIVE: HPI:Mary Jimenez is a 61 year old male presenting alone. He is s/p L4-pelvis revision on 12/31/21. He states the drainage from his incision has gotten worse. The other day he could feel that it drained down to his underwear. Today, the gauze was not completely soaked but there was still moderate amount of yellow drainage. He denies fever or chills. His most comfortable position is lying prone. Still taking hydrocodone for pain. PAIN EVALUATION No data found in the last 1 encounters. REVIEW OF SYSTEMS: GENERAL: No weight loss or malaise MUSCULOSKELETAL: Negative for joint pain, swelling or muscle pain NEURO: No history of headaches, syncope, paralysis, seizures or tremors MEDICATIONS: HYDROcodone-acetaminophen (NORCO) 5-325 mg per tablet Take 1 tablet by mouth every 6 hours as needed for pain for up to 7 days. Pregabalin (LYRICA) 200 mg capsule Take 1 capsule by mouth three times daily for 90 days. clopidogrel (PLAVIX) 75 mg tablet Take 1 tablet by mouth once daily. Please hold this medication until post op day 10 acetaminophen (TYLENOL) 500 mg tablet Take 2 tablets by mouth every 8 hours as needed for pain. telmisartan (MICARDIS) 80 mg tablet Take 80 mg by mouth once daily. docusate sodium (COLACE) 100 mg capsule Take 1 capsule by mouth twice daily. docosahexaenoic acid/epa (FISH OIL ORAL) Take 5 capsules by mouth once daily. fremanezumab-vfrm (AJOVY SYRINGE SUBCUTANEOUS) Inject 250 mg/mL subcutaneously. every 28 days for migraines CHROMIUM PICOLINATE ORAL Take 800 mcg by mouth once daily. MAGNESIUM ORAL Take 400 mg by mouth once daily. finasteride (PROSCAR) 5 mg tablet Take 5 mg by mouth daily at bedtime. CALCIUM CARBONATE/VITAMIN D3 (CALCIUM 600 + D ORAL) Take 1 tablet by mouth once daily. LACTOBACILLUS ACIDOPHILUS (PROBIOTIC ACIDOPHILUS ORAL) Take 1 capsule by mouth once daily. doxepin capsule 10 mg Take 10 mg by mouth daily at bedtime. Takes 2 tabs at bedtime dicyclomine (BENTYL) 10 mg capsule Take 20 mg by mouth as needed. 4 times daily as needed eletriptan (RELPAX) 40 mg tablet Take 40 mg by mouth as needed. may repeat in 2 hours if necessary atorvastatin (LIPITOR) 80 mg tablet Take 80 mg by mouth daily at bedtime. DULoxetine (CYMBALTA) 30 mg capsule Take 1 capsule by mouth once daily. Take with 60 mg for 90 mg total dose. (Patient taking differently: Take 30 mg by mouth three times daily. Takes 30 mg three times daily per patient) baclofen (LIORESAL) 20 mg tablet Take 20 mg by mouth daily at bedtime. furosemide (LASIX) 40 mg tablet Take 40 mg by mouth once daily. doxazosin (CARDURA) 4 mg tablet Take 4 mg by mouth once daily. metoprolol succinate XL, long acting, (TOPROL XL) 50 mg 24 hr tablet Take 50 mg by mouth once daily. cyanocobalamin (VITAMIN B-12) 1,000 mcg tab Take 1,000 mcg by mouth once daily. fluticasone (FLONASE) 50 mcg/actuation nasal spray Use 2 Sprays in each nostril twice daily. lactobacillus combination no.4 3 billion cell cap Take 1 capsule by mouth once daily. clindamycin (CLEOCIN) 150 mg capsule Take 1 capsule by mouth three times daily for 7 days. HYDROcodone-acetaminophen (NORCO) 5-325 mg per tablet Take 1 tablet by mouth every 8 hours as needed for pain for up to 7 days. QUEtiapine (SEROQUEL) 25 mg tablet Take 1 tablet by mouth daily at bedtime. QUEtiapine (SEROQUEL) 25 mg tablet Take 1 tablet by mouth twice daily as needed (Delirium) for up to 5 days. Patient Entered Questionnaires Spine Questions 01/14/2022 01/26/2022 02/07/2022 Pain Location: Lower back Lower back Leg Pain Duration: - - - Pain over last 6 months: - - - Symptoms from neck/cervical spine: No No No Employment Status: Disabled for reasons other than back pain - - Involved in law suit/legal claim: - - - Neck Questionnaires 10/02/2021 Benzel Modified SCARLETT Score Incomplete PROMIS Score Percentiles Physical Health 10/02/2021 12/04/2021 01/14/2022 Physical Function Percentile 0 73 0 Sleep Percentile 2 50 2 Fatigue Percentile 4 98 79 Pain Interference Percentile 0 0 0 PROMIS SOCIAL ROLE SCORE 10/02/2021 12/04/2021 01/14/2022 Social Role Satisfaction Percentile 1 1 1 PROMIS Global Health Scale 08/07/2021 12/04/2021 02/25/2022 Physical Health Percentile 4 7 7 Mental Health Percentile 13 3 3 Percentiles provide an indication of how the patient's score ranks in relation to the general population. Higher percentile rankings indicate better function/quality of life. 50th percentile is the average of the general population and indicates half of respondents had a worse score. Depression Screening: PHQ-9 12/04/2021 01/14/2022 02/07/2022 Score 9 10 10 PHQ-9 Self-harm Question 12/04/2021 01/14/2022 02/07/2022 Thoughts that you would be better off , or of hurting yourself in some way 0 0 0 PHQ-9 Self-Harm (Item 9) response options: 0 Not at all 1 Several days 2 More than half the days 3 Nearly every day PHQ-9 Levels: 0-4 No to mild depression 5-9 Mild depression 10-14 Moderate depression 15-19 Moderately severe depression 20-27 Severe depression OBJECTIVE: PHYSICAL EXAM: There were no vitals taken for this visit. GENERAL APPEARANCE: Well nourished, well developed, and no apparent distress. NEURO PSYCH: Patient oriented to person, place, and time. Mood pleasant. Benign affect. MUSCULOSKELETAL VISUAL INSPECTION CERVICAL: WNL THORACIC: WNL LUMBAR: WNL MOTOR: 5/5 in all muscle groups. SENSORY: Normal sensory exam GAIT: using wheelchair. Incision healing with central keloid scar. No visible drainage, unable to express drainage. Malodorous. NEURO TESTS: None DATA REVIEW:Diagnostic tests reviewed for today's visit, films/specimens were personally reviewed by me: No additional images reviewed today ASSESSMENT/PLAN (S32.009K) Lumbar pseudoarthrosis (primary encounter diagnosis) Mary Jimenez will continue with medical management of his/her condition. Medications: clindamycin 150 mg TID, probiotic, and hydrocodone prescribed. Wound debrided with curette and silver nitrate sticks. Follow up: already scheduled for virtual visit with Dr. Steele in 2 weeks. I spent a total of 20 minutes on the date of the service which included preparing to see the patient, [id number] patient care, completing clinical documentation, obtaining and/or reviewing separately obtained history, performing a medically appropriate examination, counseling and educating the pat ient/family/caregiver, and ordering medications, tests, or procedures. SIGNATURE: Christy Cat PA-C PATIENT NAME: Mary Jimenez DATE: February 27, 2022 TIME: 11:28 AM PAGER: documented in this encounterSelect Medical Specialty [facility] [place]08-30-2022 Evaluation note* Encounter Date Diagnosis Assessment Notes Treatment Notes Treatment Clinical Notes Jan, Chronic pain (ICD-10 - G89.29) He continues to follow-up with specialty care for management Jan, Obstructive sleep apnea (ICD-10 - G47.33) Download was reviewed with patient. Pt's AHI is elevated at 8.2. He does have a significant leak d/t a tear in the mask which I recommended that he switch out. We will go ahead and increase his pressure to 15/11 though as he does request a higher pressure setting, an order was sent to the [employer] to have this completed. A prescription was sent to the [employer] for new supplies throughout the year. We will go forward with a download in 1 month to reevaluate DEANA, he will call sooner if problems tolerating pressure. He was encouraged to continue to use his machine nightly throughout the entire night as this does provide clinical benefit. He will follow-up in sleep clinic in 1 year or sooner pending results of download. Jan, Insomnia (ICD-10 - G47.00) Reviewed sleep restriction therapy recommendations with patient. Again, re-emphasized that patient should use bed for anything other than sleeping. He was taken off ambien and remeron d/t polypharmacy interactions, he states that he is not sleeping as well since this has been discontinued. His PM specialist is currently trying different medications to help with his back pain. Encouraged pt to try CBT first before we add any more medications. We will continue to monitor. Detailed sleep restriction therapy recommendations were reviewed, and the patient expresses good understanding; The patient is advised to adhere to a proper sleep hygiene schedule and to assure adequate total sleep time. The patient is instructed to: Not take naps until the insomnia is controlled; Not be awake in bed for more than 20 minutes; Not use the bed for reading, watching TV, working, or resting if unable to sleep. Jan, BMI 39.0-39.9,adult (ICD-10 - Z68.39) Positive effects of weight loss on DEANA were reviewed Patient is obese,The positive effects of weight loss on DEANA were reviewed. He was encouraged to continue diet modification and increase activity as tolerated, we will continue to monitor Jan, Other Call if any questions or problems. For Sleep Apnea: Patient is advised to work on healthy diet choices and appropriate servings, weight control, regular exercise as directed, and reduce fat intake. Use machine regularly, and keep up with mask changes as needed. Call if problems with mask toleration, increased sleepiness, or poor response to treatment. Take medication as prescribed, keep follow up appointments, get any testing that's been ordered in a timely fashion. Do not smoke. [facility] Other 08-29-2022 Miscellaneous Notes* Telephone Encounter - Christine Gutierrez PA-C - 02/24/2022 11:58 AM EDT Order placed and faxed to the provided number. * Telephone Encounter - Sandra Mcallister - 02/24/2022 11:04 AM EDT Patient called stating that on 02/11 our office told him he had to redo his creatinine labs. He would like us to fax those orders to [facility] lab at [phone] documented in this encounterSelect Medical Specialty Hospital - [place]08-29-2022 Miscellaneous Notes* Telephone Encounter - Anni Clifford RN - 02/24/2022 11:57 AM EDT Call placed to pt to set up appointment for wound check for , 02/27/2022. Message left on voicemail with return number. 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 * Telephone Encounter - Anni Clifford RN - 02/24/2022 11:01 AM EDT Message left with Healthcare nurse Vivian to send picture of incision to [facility] phone number provided for review. * Telephone Encounter - Sandra Mcallister - 02/24/2022 9:30 AM EDT Vivian, from [facility] called, stating the patient's incision is still leaking, and there is also a small moveable polyp type bump in the center of the incision that is painful to the touch. Please call Vivian, formerly [facility] nurse, at [phone] to advise. documented in this encounterSelect Medical Specialty Hospital - [place]08-25-2022 Miscellaneous Notes* Telephone Encounter - Anni Clifford RN - 02/20/2022 12:57 PM EDT Scan on 02/20/2022 9:33 AM by External Provider: [facility] * Telephone Encounter - Gale De León - 02/20/2022 10:30 AM EDT Received lab report from [facility], uploaded to chart and forwarded for review. documented in this encounterSelect Medical Specialty Hospital - [place]08-24-2022 Miscellaneous Notes* Telephone Encounter - Anni Clifford RN - 02/19/2022 9:15 AM EDT Order faxed to [facility] with confirmation * Telephone Encounter - Gale De León - 02/18/2022 12:40 PM EDT Patient called asking if he can get an order for outpatient PT be sent to [facility] to fax [phone] documented in this encounterSelect Medical Specialty Hospital - [place]08-18-2022 NoteHNO ID: [id number] Author: Christy Cat PA-C Service: ? Author Type: Physician Stamp Analyst Type: Progress Notes Filed: 02/13/2022 9:57 AM Note Text: SPINE SURGERY FOLLOW UP SERVICE DATE: 02/13/2022 SURGERY DATE: 12/31/21 Mary Jimenez is seen for 6 week post operative follow up. He is sp Revision L4-pelvis instrumented fusion, here for wound check. He states a nurse is coming to change his dressing daily while he is taking Bactrim. It is difficult for him to check the amount of drainage. No fevers or chills or symptoms of infection. PAIN EVALUATION 02/13/2022 0923 Pain Level: 8 Pain Location: Back-Lower legs Description: Aching Duration Units: Unknown Frequency: Intermittent Intervention/Comfort measure: Medication Patient Entered Questionnaires Spine Questions 01/14/2022 01/26/2022 02/07/2022 Pain Location: Lower back Lower back Leg Pain Duration: - - - Pain over last 6 months: - - - Symptoms from neck/cervical spine: No No No Employment Status: Disabled for reasons other than back pain - - Involved in law suit/legal claim: - - - Neck Questionnaires 10/02/2021 Benzel Modified SCARLETT Score Incomplete PROMIS Score Percentiles Physical Health 10/02/2021 12/04/2021 01/14/2022 Physical Function Percentile 0 73 0 Sleep Percentile 2 50 2 Fatigue Percentile 4 98 79 Pain Interference Percentile 0 0 0 PROMIS SOCIAL ROLE SCORE 10/02/2021 12/04/2021 01/14/2022 Social Role Satisfaction Percentile 1 1 1 PROMIS Global Health Scale 01/28/2021 08/07/2021 12/04/2021 Physical Health Percentile 1 4 7 Mental Health Percentile 1 13 3 Percentiles provide an indication of how the patient's score ranks in relation to the general population. Higher percentile rankings indicate better function/quality of life. 50th percentile is the average of the general population and indicates half of respondents had a worse score. Depression Screening: PHQ-9 12/04/2021 01/14/2022 02/07/2022 Score 9 10 10 PHQ-9 Self-harm Question 12/04/2021 01/14/2022 02/07/2022 Thoughts that you would be better off , or of hurting yourself in some way 0 0 0 PHQ-9 Self-Harm (Item 9) response options: 0 Not at all 1 Several days 2 More than half the days 3 Nearly every day PHQ-9 Levels: 0-4 No to mild depression 5-9 Mild depression 10-14 Moderate depression 15-19 Moderately severe depression 20-27 Severe depression PHYSICAL EXAM: BP 112/68 Pulse 71 Ht 175.3 cm (5' 9 ) Wt 122.2 kg (269 lb 8 oz) BMI 39.80 kg/m? GENERAL APPEARANCE: Well nourished, well developed, and no apparent distress. NEURO PSYCH: Patient oriented to person, place, and time. Mood pleasant. Benign affect. MUSCULOSKELETAL VISUAL INSPECTION CERVICAL: WNL THORACIC: WNL LUMBAR: There is no yellow slough tissue to debride. The center of the incision is beginning to scar. There is a circular keloid lesion in the center that looks healthy. Unable to express any drainage from the incision. Non-tender to palpation. The existing dressing has minimal drainage and was put on roughly 24 hours ago MOTOR: 5/5 in all muscle groups. DATA REVIEW No additional images reviewed today ASSESSMENT/PLAN (M43.16) Spondylolisthesis, lumbar region (primary encounter diagnosis) Mary Jimenez will continue with medical management of his/her condition. Medications: Continue taking Bactrim as directed until the prescription is finished. Continue daily dressing changes. Follow up: 3 weeks, can be virtual. Sooner if it starts to have drainage again. I spent a total of 25 minutes on the date of the service which included preparing to see the patient, [id number] patient care, completing clinical documentation, obtaining and/or reviewing separately obtained history, performing a medically appropriate examination, counseling and educating the patient/family/caregiver, and ordering medications, tests, or procedures. SIGNATURE: Christy Cat PA-C PATIENT NAME: Mary Jimenez DATE: February 13, 2022 TIME: 9:50 AM [id number] History of Present illness Narrative* Christy Cat PA-C - 02/13/2022 9:50 AM EDT Images from the original note were not included. SPINE SURGERY FOLLOW UP SERVICE DATE: 02/13/2022 SURGERY DATE: 12/31/21 Mary Jimenez is seen for 6 week post operative follow up. He is sp Revision L4-pelvis instrumented fusion, here for wound check. He states a nurse is coming to change his dressing daily while he is taking Bactrim. It is difficult for him to check the amount of drainage. No fevers or chills or symptoms of infection. PAIN EVALUATION 02/13/2022 0923 Pain Level: 8 Pain Location: Back-Lower legs Description: Aching Duration Units: Unknown Frequency: Intermittent Intervention/Comfort measure: Medication Patient Entered Questionnaires Spine Questions 01/14/2022 01/26/2022 02/07/2022 Pain Location: Lower back Lower back Leg Pain Duration: - - - Pain over last 6 months: - - - Symptoms from neck/cervical spine: No No No Employment Status: Disabled for reasons other than back pain - - Involved in law suit/legal claim: - - - Neck Questionnaires 10/02/2021 Benzel Modified SCARLETT Score Incomplete PROMIS Score Percentiles Physical Health 10/02/2021 12/04/2021 01/14/2022 Physical Function Percentile 0 73 0 Sleep Percentile 2 50 2 Fatigue Percentile 4 98 79 Pain Interference Percentile 0 0 0 PROMIS SOCIAL ROLE SCORE 10/02/2021 12/04/2021 01/14/2022 Social Role Satisfaction Percentile 1 1 1 PROMIS Global Health Scale 01/28/2021 08/07/2021 12/04/2021 Physical Health Percentile 1 4 7 Mental Health Percentile 1 13 3 Percentiles provide an indication of how the patient's score ranks in relation to the general population. Higher percentile rankings indicate better function/quality of life. 50th percentile is the average of the general population and indicates half of respondents had a worse score. Depression Screening: PHQ-9 12/04/2021 01/14/2022 02/07/2022 Score 9 10 10 PHQ-9 Self-harm Question 12/04/2021 01/14/2022 02/07/2022 Thoughts that you would be better off , or of hurting yourself in some way 0 0 0 PHQ-9 Self-Harm (Item 9) response options: 0 Not at all 1 Several days 2 More than half the days 3 Nearly every day PHQ-9 Levels: 0-4 No to mild depression 5-9 Mild depression 10-14 Moderate depression 15-19 Moderately severe depression 20-27 Severe depression PHYSICAL EXAM: BP 112/68 Pulse 71 Ht 175.3 cm (5' 9 ) Wt 122.2 kg (269 lb 8 oz) BMI 39.80 kg/m GENERAL APPEARANCE: Well nourished, well developed, and no apparent distress. NEURO PSYCH: Patient oriented to person, place, and time. Mood pleasant. Benign affect. MUSCULOSKELETAL VISUAL INSPECTION CERVICAL: WNL THORACIC: WNL LUMBAR: There is no yellow slough tissue to debride. The center of the incision is beginning to scar. There is a circular keloid lesion in the center that looks healthy. Unable to express any drainage from the incision. Non-tender to palpation. The existing dressing has minimal drainage and was puton roughly 24 hours ago MOTOR: 5/5 in all muscle groups. DATA REVIEW No additional images reviewed today ASSESSMENT/PLAN (M43.16) Spondylolisthesis, lumbar region (primary encounter diagnosis) Mary Jimenez will continue with medical management of his/her condition. Medications: Continue taking Bactrim as directed until the prescription is finished. Continue daily dressing changes. Follow up: 3 weeks, can be virtual. Sooner if it starts to have drainage again. I spent a total of 25 minutes on the date of the service which included preparing to see the patient, [id number] patient care, completing clinical documentation, obtaining and/or reviewing separately obtained history, performing a medically appropriate examination, counseling and educating the pat ient/family/caregiver, and ordering medications, tests, or procedures. SIGNATURE: Christy Cat PA-C PATIENT NAME: Mary Jimenez DATE: February 13, 2022 TIME: 9:50 AM PAGER: documented in this encounterSelect [facility]-2022 NoteHNO ID: [id number] Author: Effie Beltran PA-C Service: ? Author Type: Physician Stamp Analyst Type: Plan of Care Filed: 02/10/2022 3:27 PM Note Text: Form signed and sent backCranberry Specialty [id number] Miscellaneous Notes* Plan of Care - Effie Beltran PA-C - 02/10/2022 3:27 PM EDT Form signed and sent back * Telephone Encounter - Mary Grace Alejo - 02/10/2022 12:22 PM EDT Received form from [facility] needing completion in [employer] for review. documented in this encounterSelect [facility] [place]08-15-2022 Miscellaneous Notes* Telephone Encounter - Greta Nunez RN - 02/10/2022 10:35 AM EDT Will forward for review. Scan on 02/07/2022 2:12 PM by External Provider: BMP report * Telephone Encounter - Gale De León - 02/10/2022 10:13 AM EDT Received Lab report from [facility], uploaded to chart and forwarded for review. documented in this encounterSelect [facility] [place]08-11-2022 Evaluation note* Encounter Date Diagnosis Assessment Notes Treatment Notes Treatment Clinical Notes Jan, Essential (primary) hypertension (ICD-10 - I10) [facility] Other [id number] Miscellaneous Notes* Telephone Encounter - Greta Nunez RN - 02/04/2022 12:54 PM EDT Will forward for review. documented in this encounterSelect [facility] [place]08-04-2022 NoteHNO ID: [id number] Author: Effie Beltran PA-C Service: ? Author Type: Physician Stamp Analyst Type: Progress Notes Filed: 01/30/2022 9:11 PM Note Text: SPINE SURGERY FOLLOW UP SERVICE DATE: 01/30/2022 SURGERY DATE: 12/31/21 Mary Jimenez is seen for 1 month post operative follow up. He is sp Revision L4-pelvis instrumented fusion, here for wound check. He has had drainage from his incision for the past week. Denies fever, chills, or incisional pain. He continues to have LLE pain, improves with norco TID. He lives alone and is not able to change his own dressing given surgical site is in lumbar spine. PAIN EVALUATION 01/30/2022 1126 Pain Level: 6 Pain Location: Back-Lower Description: Shooting Duration Units: Unknown Frequency: Intermittent standing and setting is continuous Intervention/Comfort measure: Medication Patient Entered Questionnaires Spine Questions 12/04/2021 01/14/2022 01/26/2022 Pain Location: Leg Lower back Lower back Pain Duration: - - - Pain over last 6 months: - - - Symptoms from neck/cervical spine: No No No Employment Status: - Disabled for reasons other than back pain - Involved in law suit/legal claim: - - - Neck Questionnaires 10/02/2021 Benzel Modified SCARLETT Score Incomplete PROMIS Score Percentiles Physical Health 10/02/2021 12/04/2021 01/14/2022 Physical Function Percentile 0 73 0 Sleep Percentile 2 50 2 Fatigue Percentile 4 98 79 Pain Interference Percentile 0 0 0 PROMIS SOCIAL ROLE SCORE 10/02/2021 12/04/2021 01/14/2022 Social Role Satisfaction Percentile 1 1 1 PROMIS Global Health Scale 01/28/2021 08/07/2021 12/04/2021 Physical Health Percentile 1 4 7 Mental Health Percentile 1 13 3 Percentiles provide an indication of how the patient's score ranks in relation to the general population. Higher percentile rankings indicate better function/quality of life. 50th percentile is the average of the general population and indicates half of respondents had a worse score. Depression Screening: PHQ-9 10/02/2021 12/04/2021 01/14/2022 Score 14 9 10 PHQ-9 Self-harm Question 10/02/2021 12/04/2021 01/14/2022 Thoughts that you would be better off , or of hurting yourself in some way 0 0 0 PHQ-9 Self-Harm (Item 9) response options: 0 Not at all 1 Several days 2 More than half the days 3 Nearly every day PHQ-9 Levels: 0-4 No to mild depression 5-9 Mild depression 10-14 Moderate depression 15-19 Moderately severe depression 20-27 Severe depression PHYSICAL EXAM: BP (!) 128/45 (BP Site: Right Arm, BP Position: Supine, BP Cuff Size: Regular Adult) Pulse 76 Ht 176.5 cm (5' 9.5 ) Wt 117.5 kg (259 lb) BMI 37.70 kg/m? GENERAL APPEARANCE: Well nourished, well developed, and no apparent distress. Appears comfortable. NEURO PSYCH: Patient oriented to person, place, and time. Mood pleasant. Benign affect. MUSCULOSKELETAL VISUAL INSPECTION CERVICAL: WNL THORACIC: WNL LUMBAR: See picture of incision uploaded today. No tenderness around incision to deep palpation. Difficult to express drainage with palpation, although there is clear yellow/red drainage that seems to be coming from the granulation tissue in center of keloid MOTOR: strength 5/5 in BLE Reviewed picture of incision with Dr Steele who recommends debriding yellow slough and starting doxycycline. DATA REVIEW [facility] records independently reviewed Imaging and outside records independently reviewed ASSESSMENT/PLAN Patient presents with concerns of wound drainage. Pictured uploaded. Does not appear infected, but wound cultures were taken today. Slough material removed from around the granular tissue. CBC and CRP ordered and resulted; WBC and CRP WNL. 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 He currently has home PT, will send request for nurse to come daily for dressing changes. Discussed changing the dressing to ABD and tape daily and prn. He also continues to have left lower extremity pain. We discussed CT lumbar spine in the future around 6-8 weeks post op if symptoms fail to improve. 1. Follow up: Two weeks or sooner if needed. I spent a total of 45 minutes on the date of the service which included preparing to see the patient, [id number] patient care, completing clinical documentation, obtaining and/or reviewing separately obtained history, performing a medically appropriate examination, counseling and educating the patient/family/caregiver, ordering medications, tests, or procedures, communicating with other HCPs (not separately reported), independently interpreting results (not separately reported) and communicating results to the patient/family/caregiver. SIGNATURE: Effie Beltran PA-C PATIENT NAME: Mary Prieto Barbara DATE: January 30, 2022 TIME: 11:28 AM PAGER:[facility] [id number] NoteHNO ID: [id number] Author: Tammie Hall MA Service: ? Author Type: Air Moving Technician Type: Progress Notes Filed: 01/30/2022 9:11 PM Note Text: 10FaEncompass Rehabilitation Hospital of Western [id number] Instructions* Patient Instructions* Effie Beltran PA-C - 01/30/2022 12:00 PM EDT Please change dressing daily to ABD with tape. Do not get incision wet if it is draining. [phone]-office number documented in this encounterSelect Medical [facility]ty [facility] [place]08-04-2022 History of Present illness Narrative* Effie Beltran PA-C - 01/30/2022 11:28 AM EDT Images from the original note were not included. SPINE SURGERY FOLLOW UP SERVICE DATE: 01/30/2022 SURGERY DATE: 12/31/21 Mary Jimenez is seen for 1 month post operative follow up. He is sp Revision L4-pelvis instrumented fusion, here for wound check. He has had drainage from his incision for the past week. Denies fever, chills, or incisional pain. He continues to have LLE pain, improves with norco TID. He lives alone and is not able to change hisown dressing given surgical site is in lumbar spine. PAIN EVALUATION 01/30/2022 1126 Pain Level: 6 Pain Location: Back-Lower Description: Shooting Duration Units: Unknown Frequency: Intermittent standing and setting is continuous Intervention/Comfort measure: Medication Patient Entered Questionnaires Spine Questions 12/04/2021 01/14/2022 01/26/2022 Pain Location: Leg Lower back Lower back Pain Duration: - - - Pain over last 6 months: - - - Symptoms from neck/cervical spine: No No No Employment Status: - Disabled for reasons other than back pain - Involved in law suit/legal claim: - - - Neck Questionnaires 10/02/2021 Benzel Modified SCARLETT Score Incomplete PROMIS Score Percentiles Physical Health 10/02/2021 12/04/2021 01/14/2022 Physical Function Percentile 0 73 0 Sleep Percentile 2 50 2 Fatigue Percentile 4 98 79 Pain Interference Percentile 0 0 0 PROMIS SOCIAL ROLE SCORE 10/02/2021 12/04/2021 01/14/2022 Social Role Satisfaction Percentile 1 1 1 PROMIS Global Health Scale 01/28/2021 08/07/202112/0412/04/2021 Physical Health Percentile 1 4 7 Mental Health Percentile 1 13 3 Percentiles provide an indication of how the patient's score ranks in relation to the general population. Higher percentile rankings indicate better function/quality of life. 50th percentile is the average of the general population and indicates half of respondents had a worse score. Depression Screening: PHQ-9 10/02/2021 12/04/2021 01/14/2022 Score 14 9 10 PHQ-9 Self-harm Question 10/02/2021 12/04/2021 01/14/2022 Thoughts that you would be better off , or of hurting yourself in some way 0 0 0 PHQ-9 Self-Harm (Item 9) response options: 0 Not at all 1 Several days 2 More than half the days 3 Nearly every day PHQ-9 Levels: 0-4 No to mild depression 5-9 Mild depression 10-14 Moderate depression 15-19 Moderately severe depression 20-27 Severe depression PHYSICAL EXAM: BP (!) 128/45 (BP Site: Right Arm, BP Position: Supine, BP Cuff Size: Regular Adult) Pulse 76 Ht 176.5 cm (5' 9.5 ) Wt 117.5 kg (259 lb) BMI 37.70 kg/m GENERAL APPEARANCE: Well nourished, well developed, and no apparent distress. Appears comfortable. NEURO PSYCH: Patient oriented to person, place, and time. Mood pleasant. Benign affect. MUSCULOSKELETAL VISUAL INSPECTION CERVICAL: WNL THORACIC: WNL LUMBAR: See picture of incision uploaded today. No tenderness around incision to deep palpation. Difficult to express drainage with palpation, although there is clear yellow/red drainage that seems to be coming from the granulation tissue in center of keloid MOTOR: strength 5/5 in BLE Reviewed picture of incision with Dr Steele who recommends debriding yellow slough and starting doxycycline. DATA REVIEW [facility] records independently reviewed Imaging and outside records independently reviewed ASSESSMENT/PLAN Patient presents with concerns of wound drainage. Pictured uploaded. Does not appear infected, but wound cultures were taken today. Slough material removed from around the granular tissue. CBC and CRP ordered and resulted; WBC and CRP WNL. 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 He currently has home PT, will send request for nurse to come daily for dressing changes. Discussed changing the dressing to ABD and tape daily and prn. He also continues to have left lower extremity pain. We discussedCT lumbar spine in the future around 6-8 weeks post op if symptoms fail to improve. 1. Follow up: Two weeks or sooner if needed. I spent a total of 45 minutes on the date of the service which included preparing to see the patient, [id number] patient care, completing clinical documentation, obtaining and/or reviewing separately obtained history, performing a medically appropriate examination, counseling and educating the pat ient/family/caregiver, ordering medications, tests, or procedures, communicating with other HCPs (not separately reported), independently interpreting results (not separately reported) and communicating results to the patient/family/caregiver. SIGNATURE: Effie Beltran PA-C PATIENT NAME: Mary Jimenez DATE: January 30, 2022 TIME: 11:28 AM PAGER: * Tammie Hall MA - 01/30/2022 11:22 AM EDT 10 documented in this encounterSelect [facility] [place]08-02-2022 Evaluation note* Encounter Date Diagnosis Assessment Notes Treatment Notes Treatment Clinical Notes Jan, Osteoarthritis of spine with radiculopathy, lumbosacral region (ICD-10 - M47.27) We had a long talk about his ongoing back pain. He is still in recovery from the 3 lumbar spine surgeries done this year as above with neurosurgery follow-up pending. We discussed his history of infection with incision and drainage and current wound that still has some drainage (apparently not felt to be currently infected). We discussed he should not resume any physical activity including working out at the gym that is not cleared by his spinal surgeon. With regard to whether he should seek a second opinion, I discussed that it is not my specialty. He does feel very confident with his current [facility] surgeon. I suggested he discuss with that surgeon whether a second opinion may be of value prior to another surgery. If so, perhaps the [facility] surgeon can help direct the second opinion referral. Jan, Status post spinal surgery (ICD-10 - Z98.890) See dictation above Jan, Postoperative wound infection (ICD-10 - T81.49XA) See dictation above Jan, Other chronic pain (ICD-10 - G89.29) He ask about pain management. Per previous note, Dr. Ochoa did not want to see him in the middle of his neurosurgery procedures. I suggested the patient finished with his [facility] surgeon and at one point he will need to link back up with Dr. Ochoa. As above, he ask about Dr. Alatorre because he has heard good things. I discussed I respect both physicians. He is going to think about it. Jan, Lumbago with sciatica, right side (ICD-10 - M54.41) See dictation above Jan, Lumbago with sciatica, left side (ICD-10 - M54.42) See dictation above Jan, Chronic renal failure, stage 3 (moderate), unspecified whether stage 3a or 3b CKD (ICD-10 - N18.30) He had mild renal insufficiency on previous labs. It has progressed. We discussed in light of all of the above may simply be a stress response. We will follow renal function including repeat labs in 1 month. Too soon to know his long-term renal status. 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 I am okay with him trying to stop it now that he is home. I am also okay with him staying on it at least for now to help with sleep and he elected to have us refill it. We will discuss again next month. Jan, Obstructive sleep apnea (ICD-10 - G47.33) Continue CPAP, sleep clinic. Discussed with his weight loss, next checkup he should discuss with them whether his mask needs reevaluated or whether he may need another sleep study. Jan, Chronic insomnia (ICD-10 - F51.04) See dictation above. Currently doing very well on Seroquel and doxepin Jan, Weight loss (ICD-10 - R63.4) He lost weight because he was sick and going through surgeries. However, discussed the weight loss is positive and I would like him to keep the weight off. Jan, Encounter for long-term (current) use of medications (ICD-10 - Z79.899) Jan, Mixed hyperlipidemia (ICD-10 - E78.2) Jan, Impaired glucose tolerance (ICD-10 - R73.02) Jan, Other RTO 1 month for general recheck preceded by fasting CBC, BMP, hepatic panel, lipid profile, hemoglobin A1c, TSH, T4 (weight loss) and sooner as needed. [facility] Other 07-20-2022 NoteHNO ID: [id number] Author: Loyda Steele MD Service: ? Author Type: Physician Type: Progress Notes Filed: 01/17/2022 11:45 AM Note Text: SPINE SURGERY FOLLOW UP SERVICE DATE: 01/15/2022 SURGERY DATE: 08/16/21, 09/12/21 and 12/31/2021 S/p Revision L4-pelvis instrumented fusion Mary Prieto Barbara is seen for 2 week post operative follow up. Overall patient doing well. He does report some recurrence of his preoperative symptoms. Otherwise has been more mobile. No major concerns. ANTIPLATELET OR ANTICOAGULATION STATUS: No Patient Entered Questionnaires Spine Questions 10/05/2021 12/04/2021 01/14/2022 Pain Location: - Leg Lower back Pain Duration: - - - Pain over last 6 months: - - - Symptoms from neck/cervical spine: No No No Employment Status: - - Disabled for reasons other than back pain Involved in law suit/legal claim: - - - Neck Questionnaires 10/02/2021 Benzel Modified SCARLETT Score Incomplete PROMIS Score Percentiles Physical Health 10/02/2021 12/04/2021 01/14/2022 Physical Function Percentile 0 73 0 Sleep Percentile 2 50 2 Fatigue Percentile 4 98 79 Pain Interference Percentile 0 0 0 PROMIS SOCIAL ROLE SCORE 10/02/2021 12/04/2021 01/14/2022 Social Role Satisfaction Percentile 1 1 1 PROMIS Global Health Scale 01/28/2021 08/07/2021 12/04/2021 Physical Health Percentile 1 4 7 Mental Health Percentile 1 13 3 Percentiles provide an indication of how the patient's score ranks in relation to the general population. Higher percentile rankings indicate better function/quality of life. 50th percentile is the average of the general population and indicates half of respondents had a worse score. Depression Screening: PHQ-9 10/02/2021 12/04/2021 01/14/2022 Score 14 9 10 PHQ-9 Self-harm Question 10/02/2021 12/04/2021 01/14/2022 Thoughts that you would be better off , or of hurting yourself in some way 0 0 0 PHQ-9 Self-Harm (Item 9) response options: 0 Not at all 1 Several days 2 More than half the days 3 Nearly every day PHQ-9 Levels: 0-4 No to mild depression 5-9 Mild depression 10-14 Moderate depression 15-19 Moderately severe depression 20-27 Severe depression PHYSICAL EXAM: BP 129/68 Pulse 82 Ht 176.5 cm (5' 9.5 ) BMI 37.70 kg/m? Oriented x3 PERRL FS Motor: UE D 5/5, B 5/5, T 5/5, G 5/5, HI 5/5 LE HF 5/5, KE 5/5, DF 5/5, PF 5/5, EHL 5/5 Incision C/D/I DATA REVIEW No additional images reviewed today ASSESSMENT/PLAN (M54.16) Radiculopathy, lumbar region (primary encounter diagnosis) 1. [place] ordered 2. Seroquel ordered 3. XR lumbar ordered 4. Follow up: 4 weeks SIGNATURE: Loyda Steele MD PATIENT NAME: Mary Jimenez DATE: January 15, 2022 TIME: 3:08 PM [facility] [phone] Miscellaneous Notes* Allied Health - Caroline Silva Surekha, RT(R) - 01/15/2022 3:20 PM EDT Radiology Service Progress Note PATIENT NAME: Mary Jimenez DATE OF SERVICE: January 15, 2022 TIME: 12:59 PM PATIENT IDENTITY VERIFICATION COMPLETED USING TWO (2) IDENTIFIERS: Name and Date of confirmedby patient verbally. FALL SCREENING: Has the patient had 2 falls in the last year or 1 fall with injury or currently using an Ambulatory Assistive Device (Walker, Cane, Wheelchair, Crutches, etc.)? Inpatient: [facility] PATIENT GENDER DATA: Male PATIENT RELEVANT IMPLANT DATA REVIEWED: Not Applicable RADIOLOGY DEPARTMENT: General X-ray: Exam(s) Completed: Spine X-Ray(s): Lumbar AP / LAT PERIPHERAL IV DATA: Not applicable SIGNED BY: Caroline Irby RT(R) January 15, 2022 12:59 PM documented [facility] Miscellaneous Notes* Telephone Encounter - LUCIE Hernandez - 01/07/2022 8:45 AM EDT Thank you for your referral for patient, but patient active with [facility]. I will cancel referral for [facility]. documented in this encounterSelect [facility] [place]-11-2022 NoteHNO ID: [id number] Author: Taylor Cardenas PA-C Service: Neurosurgery Author Type: Physician Stamp Analyst Type: Progress Notes Filed: 01/06/2022 12:57 PM Note Text: NEUROSURGERY POST OP PROGRESS NOTE SERVICE DATE: 01/06/2022 SERVICE TIME: 719 POST OP DAY: # 6 SUBJECTIVE He reports pain to legs overall improved, continues to have some numbness to feet, same as pre-op. He is walking around well without difficulty. Incisional pain well controlled. Has bowel movement yesterday. He reports some tingling in his back, post op XR from 01/03 stable. OBJECTIVE General: AANDOx 3. Incision: edges well approximated and dressing CDI. Drain: Drain fell out overnight. No obvious signs of hematoma Lira: no lira. Strength 5/5 in bilateral lower extremities Sensation intact with decreased sensation to feet Abdomen soft, no tender Most recent labs and imaging results.. Current Facility-Administered Medications Medication Dose Route Frequency - doxazosin 4 mg tab(s) (CARDURA) 4 mg ORAL AT BEDTIME - pregabalin 200 mg cap(s) (LYRICA) 200 mg ORAL TID - atorvastatin 80 mg tab(s) (LIPITOR) 80 mg ORAL AT BEDTIME - QUEtiapine 25 mg tab(s) (SEROquel) 25 mg ORAL BID PRN - finasteride 5 mg tab(s) (PROSCAR) 5 mg ORAL AT BEDTIME - metoprolol succinate ER 50 mg tab(s) (TOPROL XL) 50 mg ORAL DAILY - DULoxetine 30 mg cap(s) (CYMBALTA) 30 mg ORAL DAILY - baclofen 20 mg tab(s) (LIORESAL) 20 mg ORAL AT BEDTIME - doxepin 10 mg cap(s) (SINEquan) 10 mg ORAL AT BEDTIME - NaCl 0.9% iv flush bag 20 mL INTRAVENOUS PRN - sodium chloride 0.9 % (flush) 3-5 mL (BD POSIFLUSH) 3-5 mL INTRAVENOUS q 12 H - docusate sodium 100 mg cap(s) (COLACE) 100 mg ORAL BID - cyclobenzaprine 10 mg tab(s) (FLEXERIL) 10 mg ORAL TID PRN - polyethylene glycol 3350 17 g packet (MIRALAX, GLYCOLAX) 17 g ORAL DAILY - acetaminophen 1,000 mg tab(s) (TYLENOL) 1,000 mg ORAL q 8 H - oxyCODONE IR 5-10 mg tab(s) (ROXICODONE) 5-10 mg ORAL q 3 H PRN - valsartan 160 mg tab(s) (DIOVAN) 160 mg ORAL DAILY - heparin 5,000 Units injection 5,000 Units SUBCUTANEOUS q 12 H - clindamycin 900 mg (CLEOCIN) 900 mg ORAL q 8 H - bisacodyl EC 10 mg tab(s) (DULCOLAX) 10 mg ORAL DAILY ASSESSMENT AND PLAN Patient Active Hospital Problem List: Lumbar pseudoarthrosis (12/31/2021) Intractable chronic migraine without aura (07/18/2014) Chronic pain syndrome (07/18/2014) Primary hypertension (08/07/2021) Cerebrovascular accident (CVA) due to thrombosis (HCC) (08/07/2021) Status post lumbar spinal fusion (08/17/2021) Mixed hyperlipidemia (08/18/2021) BPH (benign prostatic hyperplasia) (08/18/2021) GERD (gastroesophageal reflux disease) (08/18/2021) CKD (chronic kidney disease) stage 3, GFR 30-59 ml/min ([facility]) (08/18/2021) Obesity (09/12/2021) Sleep apnea (12/17/2021) Anemia (01/04/2022) Medication and Non-Pharmacologic VTE Prophylaxis/Anticoagulants Anticoagulant AND Antiplatelet Medications (From admission, onward) Start Dose Route Frequency Last Action Ordered Stop 01/02/22 2100 heparin 5,000 Units injection 5,000 Units SUBCUTANEOUS EVERY 12 HOURS Given, 01/055 01/02/22 1227 -- 12/31/21 1800 vte pharmacologic prophylaxis contraindicated ([place]) 12/31/21 1800 pneumatic compression stockings ([place], [place]) 12/31/21 1800 activity - mobilize patient ([place] VTE Prophylaxis: VTE prophylaxis appropriate Mary Jimenez is a 61 year old status post revision L4-pelvis instrumented fusion . Recommend increasing activity, physical therapy , occupational therapy and discharge planning. - Continue pain control per MAR - Continue bowel regimen - PT/OT recommending SNF, placement pending - Continue IS, SCDs, SubQ heparin for DVT ppx Discharge pending placement SIGNATURE: Taylor Cardenas PA-C PATIENT NAME: Mary Jimenez DATE: January 06, 2022 TIME: 7:36 AM ETX#[id number] Orrville [id number] NoteHNO ID: [id number] Author: Lizy Oneill APRN.ROLLER STAINER Service: Neurosurgery Author Type: Nurse Practitioner Type: Progress Notes Filed: 01/05/2022 11:14 AM Note Text: NEUROSURGERY POST OP PROGRESS NOTE SERVICE DATE: 01/05/2022 SERVICE TIME: 1100 POST OP DAY: # 5 SUBJECTIVE Patient seen and assessed. Reports overall improvement in pain. Continues to report numbness and tingling to bilateral feet, but improving. Patient denies weakness, nausea, vomiting, SOB, chest pain, fever, chills. Had a BM earlier today. OBJECTIVE General: AANDOx 3, NAD, GARCIA well, AFVSS. Incision: dressing changed Drain: output is 70 cc/24 hrs Lira: no lira. Most recent labs and imaging results.. Current Facility-Administered Medications Medication Dose Route Frequency - doxazosin 4 mg tab(s) (CARDURA) 4 mg ORAL AT BEDTIME - pregabalin 200 mg cap(s) (LYRICA) 200 mg ORAL TID - atorvastatin 80 mg tab(s) (LIPITOR) 80 mg ORAL AT BEDTIME - QUEtiapine 25 mg tab(s) (SEROquel) 25 mg ORAL BID PRN - finasteride 5 mg tab(s) (PROSCAR) 5 mg ORAL AT BEDTIME - metoprolol succinate ER 50 mg tab(s) (TOPROL XL) 50 mg ORAL DAILY - DULoxetine 30 mg cap(s) (CYMBALTA) 30 mg ORAL DAILY - baclofen 20 mg tab(s) (LIORESAL) 20 mg ORAL AT BEDTIME - doxepin 10 mg cap(s) (SINEquan) 10 mg ORAL AT BEDTIME - NaCl 0.9% iv flush bag 20 mL INTRAVENOUS PRN - sodium chloride 0.9 % (flush) 3-5 mL (BD POSIFLUSH) 3-5 mL INTRAVENOUS q 12 H - docusate sodium 100 mg cap(s) (COLACE) 100 mg ORAL BID - cyclobenzaprine 10 mg tab(s) (FLEXERIL) 10 mg ORAL TID PRN - polyethylene glycol 3350 17 g packet (MIRALAX, GLYCOLAX) 17 g ORAL DAILY - acetaminophen 1,000 mg tab(s) (TYLENOL) 1,000 mg ORAL q 8 H - oxyCODONE IR 5-10 mg tab(s) (ROXICODONE) 5-10 mg ORAL q 3 H PRN - valsartan 160 mg tab(s) (DIOVAN) 160 mg ORAL DAILY - heparin 5,000 Units injection 5,000 Units SUBCUTANEOUS q 12 H - clindamycin 900 mg (CLEOCIN) 900 mg ORAL q 8 H - bisacodyl EC 10 mg tab(s) (DULCOLAX) 10 mg ORAL DAILY ASSESSMENT AND PLAN Patient Active Hospital Problem List: Lumbar pseudoarthrosis (12/31/2021) Intractable chronic migraine without aura (07/18/2014) Chronic pain syndrome (07/18/2014) Primary hypertension (08/07/2021) Cerebrovascular accident (CVA) due to thrombosis (HCC) (08/07/2021) Status post lumbar spinal fusion (08/17/2021) Mixed hyperlipidemia (08/18/2021) BPH (benign prostatic hyperplasia) (08/18/2021) GERD (gastroesophageal reflux disease) (08/18/2021) CKD (chronic kidney disease) stage 3, GFR 30-59 ml/min ([facility]) (08/18/2021) Obesity (09/12/2021) Sleep apnea (12/17/2021) Anemia (01/04/2022) Medication and Non-Pharmacologic VTE Prophylaxis/Anticoagulants Anticoagulant AND Antiplatelet Medications (From admission, onward) Start Dose Route Frequency Last Action Ordered Stop 01/02/22 2100 heparin 5,000 Units injection 5,000 Units SUBCUTANEOUS EVERY 12 HOURS Given, 01/05 0701/02/22 1227 -- 12/31/21 1800 vte pharmacologic prophylaxis contraindicated ([place]) 12/31/21 1800 pneumatic compression stockings ([place]) 12/31/21 1800 activity - mobilize patient ([place]) VTE Prophylaxis: VTE prophylaxis appropriate Mary Jimenez is a 61 year old status post revision L4-pelvis instrumented fusion with Dr. Steele on 12/31/21: - recommend increasing activity - PT following, initially recommended [facility], then changed recommendation to SNF - Lira removed POD#2, no issues voiding - continue current pain medication regimen - continue Dulcolax QD, Colace BID, and Miralax every day (had BM today) - continue SQ Heparin, TEDs, and SCDs for VTE ppx - GUADALUPE to remain in place up until discharge per Dr. Steele Anticipate discharge in 1 day, CM to arrange SNF I spent 35 minutes in the visit, with more than 50% of the total kssp-cf-pchr time of the visit in counseling / coordination of care. SIGNATURE: Lizy Oneill APRN.CNP PATIENT NAME: Mary Jimenez DATE: January 05, 2022 TIME: 11:13 AM ETX#[id number] Orrville [id number] NoteHNO ID: [id number] Author: Lizy Oneill APRN.CNP Service: Neurosurgery Author Type: Nurse Practitioner Type: Progress Notes Filed: 01/04/2022 1:59 PM Note Text: NEUROSURGERY POST OP PROGRESS NOTE SERVICE DATE: 01/04/2022 SERVICE TIME: 1230 POST OP DAY: # 4 SUBJECTIVE Patient seen and assessed. Currently having 7 out of 10 low back pain. Continues to report numbness and tingling to both feel, although right is foot is improving. Patient denies weakness. He is passing flatus, no BM yet. Patient denies urinary symptoms, fever, chills, nausea, vomiting, SOB, chest pain. Dressing changed. OBJECTIVE General: AANDOx 3, NAD, GARCIA well, AFVSS. Incision: dressing changed Drain: output is 120 cc/12 hrs Lira: no lira. Most recent labs and imaging results.. Current Facility-Administered Medications Medication Dose Route Frequency - doxazosin 4 mg tab(s) (CARDURA) 4 mg ORAL AT BEDTIME - pregabalin 200 mg cap(s) (LYRICA) 200 mg ORAL TID - atorvastatin 80 mg tab(s) (LIPITOR) 80 mg ORAL AT BEDTIME - QUEtiapine 25 mg tab(s) (SEROquel) 25 mg ORAL BID PRN - finasteride 5 mg tab(s) (PROSCAR) 5 mg ORAL AT BEDTIME - metoprolol succinate ER 50 mg tab(s) (TOPROL XL) 50 mg ORAL DAILY - DULoxetine 30 mg cap(s) (CYMBALTA) 30 mg ORAL DAILY - baclofen 20 mg tab(s) (LIORESAL) 20 mg ORAL AT BEDTIME - doxepin 10 mg cap(s) (SINEquan) 10 mg ORAL AT BEDTIME - NaCl 0.9% iv flush bag 20 mL INTRAVENOUS PRN - sodium chloride 0.9 % (flush) 3-5 mL (BD POSIFLUSH) 3-5 mL INTRAVENOUS q 12 H - docusate sodium 100 mg cap(s) (COLACE) 100 mg ORAL BID - cyclobenzaprine 10 mg tab(s) (FLEXERIL) 10 mg ORAL TID PRN - polyethylene glycol 3350 17 g packet (MIRALAX, GLYCOLAX) 17 g ORAL DAILY - acetaminophen 1,000 mg tab(s) (TYLENOL) 1,000 mg ORAL q 8 H - oxyCODONE IR 5-10 mg tab(s) (ROXICODONE) 5-10 mg ORAL q 3 H PRN - valsartan 160 mg tab(s) (DIOVAN) 160 mg ORAL DAILY - heparin 5,000 Units injection 5,000 Units SUBCUTANEOUS q 12 H - clindamycin 900 mg (CLEOCIN) 900 mg ORAL q 8 H ASSESSMENT AND PLAN Patient Active Hospital Problem List: Lumbar pseudoarthrosis (12/31/2021) Intractable chronic migraine without aura (07/18/2014) Chronic pain syndrome (07/18/2014) Primary hypertension (08/07/2021) Cerebrovascular accident (CVA) due to thrombosis (HCC) (08/07/2021) Status post lumbar spinal fusion (08/17/2021) Mixed hyperlipidemia (08/18/2021) BPH (benign prostatic hyperplasia) (08/18/2021) GERD (gastroesophageal reflux disease) (08/18/2021) CKD (chronic kidney disease) stage 3, GFR 30-59 ml/min (HCC) (08/18/2021) Obesity (09/12/2021) Sleep apnea (12/17/2021) Anemia (01/04/2022) Medication and Non-Pharmacologic VTE Prophylaxis/Anticoagulants Anticoagulant AND Antiplatelet Medications (From admission, onward) Start Dose Route Frequency Last Action Ordered Stop 01/02/22 2100 heparin 5,000 Units injection 5,000 Units SUBCUTANEOUS EVERY 12 HOURS Given, 01/04 0909 01/02/22 1227 -- 12/31/21 1800 vte pharmacologic prophylaxis contraindicated ([place]) 12/31/21 1800 pneumatic compression stockings ([place]) 12/31/21 1800 activity - mobilize patient ([place]) VTE Prophylaxis: VTE prophylaxis appropriate Mary Jimenez is a 61 year old status post revision L4-pelvis instrumented fusion with Dr. Steele on 12/31/21: - recommend increasing activity - PT following, initially recommended [facility], then changed recommendation to SNF, patient will likely be discharged home if he is staying 2 more days - Lira removed POD#2, no issues voiding - continue current pain medication regimen - add Dulcolax daily to current bowel regimen (Colace BID and Miralax QD) - continue SQ Heparin, TEDs, and SCDs for VTE ppx - GUADALUPE to remain in place up until discharge per Dr. Steele, would like GUADALUPE output < 100 cc/24 hrs Anticipate discharge in 2 days, will be here through the weekend Discussed with Dr. Steele I spent 35 minutes in the visit, with more than 50% of the total liya-vu-poot time of the visit in counseling / coordination of care. SIGNATURE: Lizy Oneill APRN.ROLLER STAINER PATIENT NAME: Mary Jimenez DATE: January 04, 2022 TIME: 1:59 PM ETX#[id number] NoteHNO ID: [id number] Author: Elsy Don MD Service: General Internal Medicine Author Type: Physician Type: Progress Notes Filed: 01/04/2022 12:20 PM Note Text: PROGRESS NOTE - INTERNAL MEDICINE PATIENT NAME: Mary Jimenez SERVICE DATE: January 04, 2022 SERVICE TIME: 12:19 PM PCP: Jose Ray DO ADMITTING PHYSICIAN: Loyda Steele MD MD INTERVAL HISTORY OF PRESENT ILLNESS: Pt seen denied cp/ sob REVIEW OF SYSTEMS: GENERAL: No weight loss, malaise or fevers RESPIRATORY: Negative for cough, hemoptysis, wheezing, COPD, dyspnea or shortness of breath CARDIOVASCULAR: Negative for chest pain, leg swelling, hypertension, CHF or palpitations GI: No nausea, vomiting, or diarrhea : No history of dysuria, frequency or incontinence PSYCH: Negative for sleep disturbance, mood disorder and recent psychosocial stressors. ENDOCRINE: Negative for cold or heat intolerance, polyuria, polydipsia and goiter All other reviewed and negative other than HPI. PRIOR TO ADMISSION MEDICATIONS: clopidogrel (PLAVIX) 75 mg tablet, Take 75 mg by mouth once daily., Disp: , Rfl: , 12/24/2021 HYDROcodone-Acetaminophen (NORCO) 10-325 mg per tablet, Take 1 tablet by mouth every 8 hours as needed for pain., Disp: 38 tablet, Rfl: 0, 12/30/2021 at Unknown time [] mupirocin (BACTROBAN) 2 % ointment, Apply 1/2 Bactroban ointment with a cotton swab to each nostril in the morning and at bedtime starting 5 days prior to surgery., Disp: 22 g, Rfl: 0, 12/31/2021 at 0430 Pregabalin (LYRICA) 200 mg capsule, Take 1 capsule by mouth three times daily for 90 days., Disp: 90 capsule, Rfl: 1, 12/30/2021 at Unknown time QUEtiapine (SEROQUEL) 25 mg tablet, Take 1 tablet by mouth twice daily as needed (Delirium) for up to 5 days., Disp: 10 tablet, Rfl: 0, Unknown at Unknown time docusate sodium (COLACE) 100 mg capsule, Take 1 capsule by mouth twice daily., Disp: , Rfl: , Past Week at Unknown time docosahexaenoic acid/epa (FISH OIL ORAL), Take 5 capsules by mouth once daily. , Disp: , Rfl: , Past Week at Unknown time fremanezumab-vfrm (AJOVY SYRINGE SUBCUTANEOUS), Inject 250 mg/mL subcutaneously. every 28 days for migraines, Disp: , Rfl: , Past Week at Unknown time CHROMIUM PICOLINATE ORAL, Take 800 mcg by mouth once daily., Disp: , Rfl: , Past Week at Unknown time MAGNESIUM ORAL, Take 400 mg by mouth once daily. , Disp: , Rfl: , Past Week at Unknown time finasteride (PROSCAR) 5 mg tablet, Take 5 mg by mouth daily at bedtime. , Disp: , Rfl: , 12/30/2021 at Unknown time CALCIUM CARBONATE/VITAMIN D3 (CALCIUM 600 + D ORAL), Take 1 tablet by mouth once daily. , Disp: , Rfl: , Past Week at Unknown time LACTOBACILLUS ACIDOPHILUS (PROBIOTIC ACIDOPHILUS ORAL), Take 1 capsule by mouth once daily. , Disp: , Rfl: , 12/30/2021 at Unknown time doxepin capsule 10 mg, Take 10 mg by mouth daily at bedtime. Takes 2 tabs at bedtime , Disp: , Rfl: , 12/30/2021 at Unknown time dicyclomine (BENTYL) 10 mg capsule, Take 20 mg by mouth as needed. 4 times daily as needed , Disp: , Rfl: , 12/30/2021 at Unknown time eletriptan (RELPAX) 40 mg tablet, Take 40 mg by mouth as needed. may repeat in 2 hours if necessary , Disp: , Rfl: , Past Week at Unknown time atorvastatin (LIPITOR) 80 mg tablet, Take 80 mg by mouth daily at bedtime. , Disp: , Rfl: , 12/30/2021 at Unknown time DULoxetine (CYMBALTA) 30 mg capsule, Take 1 capsule by mouth once daily. Take with 60 mg for 90 mg total dose. (Patient taking differently: Take 30 mg by mouth three times daily. Takes 30 mg three times daily per patient ), Disp: 30 capsule, Rfl: 11, 12/30/2021 at Unknown time baclofen (LIORESAL) 20 mg tablet, Take 20 mg by mouth daily at bedtime. , Disp: , Rfl: , 12/30/2021 at Unknown time furosemide (LASIX) 40 mg tablet, Take 40 mg by mouth once daily., Disp: , Rfl: , 12/30/2021 at Unknown time doxazosin (CARDURA) 4 mg tablet, Take 4 mg by mouth once daily. , Disp: , Rfl: , 12/30/2021 at pm metoprolol succinate XL, long acting, (TOPROL XL) 50 mg 24 hr tablet, Take 50 mg by mouth once daily., Disp: , Rfl: , 12/31/2021 at 0430 cyanocobalamin (VITAMIN B-12) 1,000 mcg tab, Take 1,000 mcg by mouth once daily. , Disp: , Rfl: , Past Week at Unknown time fluticasone (FLONASE) 50 mcg/actuation nasal spray, Use 2 Sprays in each nostril twice daily. , Disp: , Rfl: , 12/30/2021 at Unknown time telmisartan (MICARDIS) 80 mg tablet, Take 80 mg by mouth once daily. , Disp: , Rfl: INs AND OUT SUMMARY: Intake/Output Summary (Last 24 hours) at 01/04/2022 1219 Last data filed at 01/04/2022 1000 Gross per 24 hour Intake ? Output 1370 ml Net -1370 ml PHYSICAL EXAM: Patient Vitals for the past 24 hrs: BP Temp Temp src Pulse Resp SpO2 01/04/22 0403 (!) 103/45 36.6 ?C (97.9 ?F) Oral 68 18 96 % 01/04/22 0127 (!) 101/47 ? ? 80 ? ? 01/04/22 0104 (!) 109/49 36.4 ?C (97.5 ?F) Oral 73 18 98 % 01/03/222027 108/64 36.9 ?C (98.4 ?F) Oral 79 16 98 % (more content not included)...[facility] [id number] NoteHNO ID: [id number] Author: Lizy Oneill APRN.ROLLER STAINER Service: Neurosurgery Author Type: Nurse Practitioner Type: Progress Notes Filed: 01/03/2022 2:59 PM Note Text: NEUROSURGERY POST OP PROGRESS NOTE SERVICE DATE: 01/03/2022 SERVICE TIME: 1100 POST OP DAY: # 3 SUBJECTIVE Patient states that the preoperative symptoms of leg pain are improved. Patient reports numbness and tingling to his feet, which was present prior to surgery. Patient denies weakness, SOB, chest pain, nausea, vomiting. Voiding without difficulty since Lria removal. OBJECTIVE General: AANDOx 3, NAD, GARCIA well, AFVSS. Incision: dressing CDI. Drain: output is 230 cc/12 hrs Lira: no lira. Most recent labs and imaging results.. Current Facility-Administered Medications Medication Dose Route Frequency - doxazosin 4 mg tab(s) (CARDURA) 4 mg ORAL AT BEDTIME - pregabalin 200 mg cap(s) (LYRICA) 200 mg ORAL TID - atorvastatin 80 mg tab(s) (LIPITOR) 80 mg ORAL AT BEDTIME - QUEtiapine 25 mg tab(s) (SEROquel) 25 mg ORAL BID PRN - finasteride 5 mg tab(s) (PROSCAR) 5 mg ORAL AT BEDTIME - metoprolol succinate ER 50 mg tab(s) (TOPROL XL) 50 mg ORAL DAILY - DULoxetine 30 mg cap(s) (CYMBALTA) 30 mg ORAL DAILY - baclofen 20 mg tab(s) (LIORESAL) 20 mg ORAL AT BEDTIME - doxepin 10 mg cap(s) (SINEquan) 10 mg ORAL AT BEDTIME - NaCl 0.9% iv flush bag 20 mL INTRAVENOUS PRN - sodium chloride 0.9 % (flush) 3-5 mL (BD POSIFLUSH) 3-5 mL INTRAVENOUS q 12 H - docusate sodium 100 mg cap(s) (COLACE) 100 mg ORAL BID - cyclobenzaprine 10 mg tab(s) (FLEXERIL) 10 mg ORAL TID PRN - polyethylene glycol 3350 17 g packet (MIRALAX, GLYCOLAX) 17 g ORAL DAILY - acetaminophen 1,000 mg tab(s) (TYLENOL) 1,000 mg ORAL q 8 H - oxyCODONE IR 5-10 mg tab(s) (ROXICODONE) 5-10 mg ORAL q 3 H PRN - valsartan 160 mg tab(s) (DIOVAN) 160 mg ORAL DAILY - heparin 5,000 Units injection 5,000 Units SUBCUTANEOUS q 12 H - clindamycin 900 mg (CLEOCIN) 900 mg ORAL q 8 H ASSESSMENT AND PLAN Patient Active Hospital Problem List: Lumbar pseudoarthrosis (12/31/2021) Intractable chronic migraine without aura (07/18/2014) Chronic pain syndrome (07/18/2014) Primary hypertension (08/07/2021) Cerebrovascular accident (CVA) due to thrombosis (HCC) (08/07/2021) Status post lumbar spinal fusion (08/17/2021) Mixed hyperlipidemia (08/18/2021) BPH (benign prostatic hyperplasia) (08/18/2021) GERD (gastroesophageal reflux disease) (08/18/2021) CKD (chronic kidney disease) stage 3, GFR 30-59 ml/min ([facility]) (08/18/2021) Obesity (09/12/2021) Sleep apnea (12/17/2021) Medication and Non-Pharmacologic VTE Prophylaxis/Anticoagulants Anticoagulant AND Antiplatelet Medications (From admission, onward) Start Dose Route Frequency Last Action Ordered Stop 01/02/22 2100 heparin 5,000 Units injection 5,000 Units SUBCUTANEOUS EVERY 12 HOURS Given, 01/03 0817 01/02/22 1227 -- 12/31/21 1800 vte pharmacologic prophylaxis contraindicated (mo,[place]) 12/31/21 1800 pneumatic compression stockings ([place]) 12/31/21 1800 activity - mobilize [place] ([place] VTE Prophylaxis: VTE prophylaxis appropriate Mary Jimenez is a 61 year old status post revision L4-pelvis instrumented fusion with Dr. Steele on 12/31/21: - recommend increasing activity - PT following, initially recommended [facility], today changed recommendation to SNF - Lira removed POD#2 - continue current pain medication regimen - continue bowel regimen - IVF discontinued - continue SQ Heparin, TEDs, and SCDs for VTE ppx - GUADALUPE to remain in place up until discharge per Dr. Steele, would like GUADALUPE output < 100 cc/24 hrs Anticipate discharge in 2-3 days, will be here through the weekend Discussed with Dr. Steele I spent 35 minutes in the visit, with more than 50% of the total sqvo-vr-jmpd time of the visit in counseling / coordination of care. SIGNATURE: Lizy Oneill APRN.ROLLER STAINER PATIENT NAME: Mary Jimenez DATE: January 03, 2022 TIME: 2:59 PM ETX#[id number] NoteHNO ID: [id number] Author: Lizy Oneill APRN.CNP Service: Neurosurgery Author Type: Nurse Practitioner Type: Progress Notes Filed: 01/02/2022 12:39 PM Note Text: NEUROSURGERY POST OP PROGRESS NOTE SERVICE DATE: 01/02/2022 SERVICE TIME: 1230 POST OP DAY: # 2 SUBJECTIVE Patient states that the preoperative symptoms of leg pain are unchanged, although, patient has not ambulated much. Patient also reports numbness and tingling to his feet, which was present prior to surgery. Pain is well controlled. Patient denies weakness, SOB, chest pain, nausea, vomiting. Lira removed this morning, patient voided without difficulty. OBJECTIVE General: AANDOx 3, NAD, GARCIA well, AFVSS. Incision: dressing CDI. Drain: output is 165 cc/12 hrs Lira: no lira. Most recent labs and imaging results.. Current Facility-Administered Medications Medication Dose Route Frequency - doxazosin 4 mg tab(s) (CARDURA) 4 mg ORAL AT BEDTIME - pregabalin 200 mg cap(s) (LYRICA) 200 mg ORAL TID - atorvastatin 80 mg tab(s) (LIPITOR) 80 mg ORAL AT BEDTIME - QUEtiapine 25 mg tab(s) (SEROquel) 25 mg ORAL BID PRN - finasteride 5 mg tab(s) (PROSCAR) 5 mg ORAL AT BEDTIME - metoprolol succinate ER 50 mg tab(s) (TOPROL XL) 50 mg ORAL DAILY - DULoxetine 30 mg cap(s) (CYMBALTA) 30 mg ORAL DAILY - baclofen 20 mg tab(s) (LIORESAL) 20 mg ORAL AT BEDTIME - doxepin 10 mg cap(s) (SINEquan) 10 mg ORAL AT BEDTIME - NaCl 0.9% iv flush bag 20 mL INTRAVENOUS PRN - sodium chloride 0.9 % (flush) 3-5 mL (BD POSIFLUSH) 3-5 mL INTRAVENOUS q 12 H - lactated ringers iv infusion 100 mL/hr INTRAVENOUS CONTINUOUS - vancomycin 1.5 g in D5W 250 mL (VANCOCIN) 1.5 g INTRAVENOUS q 24 HR - docusate sodium 100 mg cap(s) (COLACE) 100 mg ORAL BID - cyclobenzaprine 10 mg tab(s) (FLEXERIL) 10 mg ORAL TID PRN - polyethylene glycol 3350 17 g packet (MIRALAX, GLYCOLAX) 17 g ORAL DAILY - acetaminophen 1,000 mg tab(s) (TYLENOL) 1,000 mg ORAL q 8 H - oxyCODONE IR 5-10 mg tab(s) (ROXICODONE) 5-10 mg ORAL q 3 H PRN - COVID-19 vaccine (PF) 30 mcg injection (COMIRNATY, [employer]) 30 mcg INTRAMUSCULAR ONCE (IMMUNIZATION) - valsartan 160 mg tab(s) (DIOVAN) 160 mg ORAL DAILY - heparin 5,000 Units injection 5,000 Units SUBCUTANEOUS q 12 H ASSESSMENT AND PLAN Patient Active Hospital Problem List: Lumbar pseudoarthrosis (12/31/2021) Intractable chronic migraine without aura (07/18/2014) Chronic pain syndrome (07/18/2014) Primary hypertension (08/07/2021) Cerebrovascular accident (CVA) due to thrombosis (HCC) (08/07/2021) Status post lumbar spinal fusion (08/17/2021) Mixed hyperlipidemia (08/18/2021) BPH (benign prostatic hyperplasia) (08/18/2021) GERD (gastroesophageal reflux disease) (08/18/2021) CKD (chronic kidney disease) stage 3, GFR 30-59 ml/min ([facility]) (08/18/2021) Obesity (09/12/2021) Sleep apnea (12/17/2021) Medication and Non-Pharmacologic VTE Prophylaxis/Anticoagulants Anticoagulant AND Antiplatelet Medications (From admission, onward) Start Dose Route Frequency Last Action Ordered Stop 01/02/22 2100 heparin 5,000 Units injection 5,000 Units SUBCUTANEOUS EVERY 12 HOURS Ordered 01/02/22 1227 -- 12/31/21 1800 vte pharmacologic prophylaxis contraindicated (mo,oh) 12/31/21 1800 pneumatic compression stockings (mo,hi) 12/31/21 1800 activity - mobilize patient (mo,hi) VTE Prophylaxis: VTE prophylaxis appropriate Mary Jimenez is a 61 year old status post revision L4-pelvis instrumented fusion with Dr. Steele on 12/31/21: - recommend increasing activity - seen by PT, recommended Acute Rehab - Dilaudid SHAPING MACHINE TENDER discontinued this morning, pain is well controlled with scheduled Tylenol and PRN Oxy IR - Ilra removed this morning, patient is voiding without difficulty - continue bowel regimen - IVF rate decreased from 150 cc/hr to 100 cc/hr as patient is slightly tachycardic - SQ Heparin started for VTE ppx - GUADALUPE to remain in place up until discharge per Dr. Steele Anticipate discharge in 1-[address] Steele I spent 35 minutes in the visit, with more than 50% of the total [id number] time of the visit in counseling / coordination of care. SIGNATURE: Lizy Oneill APRN.ROLLER STAINER PATIENT NAME: Mary Jimenez DATE: January 02, 2022 TIME: 12:30 PM ETX#[id number] Orrville [id number] NoteHNO ID: [id number] Author: Christine Gutierrez PA-C Service: Neurosurgery Author Type: ? Type: Progress Notes Filed: 01/01/2022 7:42 AM Note Text: NEUROSURGERY POST OP PROGRESS NOTE SERVICE DATE: 01/01/2022 SERVICE TIME: 7:20 AM POST OP DAY: # 1 SUBJECTIVE Patient states that the preoperative symptoms of left lower extremity pain are worse. The patient reports his post-operative pain is decently controlled on SHAPING MACHINE TENDER pump. His right lower extremity feels good today though the pain in the left lower extremity is slightly worse. OBJECTIVE General: AANDOx 3, NAD, GARCIA well, 5/5 motor strength in bilateral lower extremities except 4+/5 left hip flexion secondary to pain. Incision: dressing CDI. Drain: output is 170cc/24hhrs. Lira: to gravity. Most recent labs and imaging results.. Current Facility-Administered Medications Medication Dose Route Frequency - doxazosin 4 mg tab(s) (CARDURA) 4 mg ORAL AT BEDTIME - pregabalin 200 mg cap(s) (LYRICA) 200 mg ORAL TID - atorvastatin 80 mg tab(s) (LIPITOR) 80 mg ORAL AT BEDTIME - QUEtiapine 25 mg tab(s) (SEROquel) 25 mg ORAL BID PRN - finasteride 5 mg tab(s) (PROSCAR) 5 mg ORAL AT BEDTIME - metoprolol succinate ER 50 mg tab(s) (TOPROL XL) 50 mg ORAL DAILY - DULoxetine 30 mg cap(s) (CYMBALTA) 30 mg ORAL DAILY - baclofen 20 mg tab(s) (LIORESAL) 20 mg ORAL AT BEDTIME - doxepin 10 mg cap(s) (SINEquan) 10 mg ORAL AT BEDTIME - NaCl 0.9% iv flush bag 20 mL INTRAVENOUS PRN - sodium chloride 0.9 % (flush) 3-5 mL (BD POSIFLUSH) 3-5 mL INTRAVENOUS q 12 H - lactated ringers iv infusion 75 mL/hr INTRAVENOUS CONTINUOUS - vancomycin 1.5 g in D5W 250 mL (VANCOCIN) 1.5 g INTRAVENOUS q 24 HR - oxyCODONE-acetaminophen 5-325 mg 1-2 tablet (PERCOCET) 1-2 tablet ORAL q 6 H PRN - docusate sodium 100 mg cap(s) (COLACE) 100 mg ORAL BID - HYDROmorphone SHAPING MACHINE TENDER 0.5 mg/mL in NaCl 0.9% 100 mL INTRAVENOUS CONTINUOUS - cyclobenzaprine 10 mg tab(s) (FLEXERIL) 10 mg ORAL TID PRN ASSESSMENT AND PLAN Patient Active Hospital Problem List: Lumbar pseudoarthrosis (12/31/2021) Intractable chronic migraine without aura (07/18/2014) Primary hypertension (08/07/2021) Cerebrovascular accident (CVA) due to thrombosis (HCC) (08/07/2021) Status post lumbar spinal fusion (08/17/2021) Mixed hyperlipidemia (08/18/2021) BPH (benign prostatic hyperplasia) (08/18/2021) GERD (gastroesophageal reflux disease) (08/18/2021) CKD (chronic kidney disease) stage 3, GFR 30-59 ml/min ([facility]) (08/18/2021) Obesity (09/12/2021) Sleep apnea (12/17/2021) Obesity, Class II, BMI 35-39.9 (01/01/2022) Medication and Non-Pharmacologic VTE Prophylaxis/Anticoagulants 12/31/21 1800 vte pharmacologic prophylaxis contraindicated (mo,hi) 12/31/21 1800 pneumatic compression stockings (mo,hi) 12/31/21 1800 activity - mobilize patient (mo,hi) VTE Prophylaxis: VTE prophylaxis appropriate Mary Jimenez is a 61 year old status post Revision L4-pelvis instrumented fusion. Recommend increasing activity, physical therapy , occupational therapy and pain control. Continue SHAPING MACHINE TENDER pump. Pain management consult. PT, OT evaluations. Continue SCDs, IS Continue hemovac to suction. Mobilize patient as tolerated. Anticipate discharge in 2 days. SIGNATURE: Christine Gutierrez PA-C PATIENT NAME: Mary Jimenez DATE: January 01, 2022 TIME: 7:40 AM ETX#[id number] Orrville [id number] NoteHNO ID: [id number] Author: Christine Hatfield APRN.CNP Service: Critical Care Author Type: Nurse Practitioner Type: Progress Notes Filed: 01/01/2022 1:55 AM Note Text: Chronometer Assembler And Adjuster Coverage Note SERVICE DATE: January 01, 2022 SERVICE TIME: 0130 Went to assess patient due to nurse stated patient been tachycardic 110-120's. Patient day 1 post op Revision L4-pelvis fusion Patient does endorses some pain, encouraged patient to use SHAPING MACHINE TENDER pump. Heme vac output 100ml Tachycardia -Stat EKG(sinus tachycardia) -obtain stat CBC -LR 500 ml bolus -Tele I personally spent 15 minutes directly supervising and providing Level 1 Care exclusive of any other billable procedure. SIGNATURE: Christine Hatfield APRN.CNP PATIENT NAME: Mary Jimenez DATE: January 01, 2022 TIME: 013 PAGER: house officerAultman Orrville [id number] Procedure note* Dee Vallejo RN - 12/31/2021 1:53 PM EDT Encounter opened in error. Please disregard. documented in this encounterSelect [facility]-2022 NoteHNO ID: [id number] Author: Mariluz Wick APRN.CRNA Service: Anesthesiology Author Type: Nurse Solution Make Up Operator Type: Anesthesia Procedure Notes Filed: 12/31/2021 11:43 AM Note Text: ANESTHESIOLOGY PROCEDURE NOTE Airway General Information Procedure Start Time/Medication Administration: 12/31/2021 11:15 AM Patient location during procedure: OR Timeout Performed Pre-procedure: timeout performed Patient identity confirmed: arm band, care count team clerk and patient Staffing Anesthesiologist: David Og MD RECEPTION INTERVIEWER: Mariluz Wick APRN.RECEPTION INTERVIEWER Performed by: ANDREA Indications and Patient Condition Preoxygenated: yes Difficult Mask: No Indications for airway management: anesthesia anesthesia circuit Method: asleep Final Airway Details Final airway type: endotracheal airway Final Endotracheal Airway: ETT Cuffed: yes Devices used: Glidescope Endotracheal tube insertion site: oral Blade size: #4 ETT size (mm): 7.5 Measured from: lips Measurement (cm): 22 Placement verified by: chest auscultation and capnometry Number of attempts at approach: 1 SIGNATURE: Mariluz Wick APRN.RECEPTION INTERVIEWER PATIENT NAME: Mary Jimenez DATE: December 31, 2021 TIME: 11:42 AM CSN: [id number] Miscellaneous Notes* Plan of Care - Effie Beltran PA-C - 12/19/2021 8:59 AM EDT Will close this encounter. There is already an encounter regarding pain med refills * Telephone Encounter - Joanne Jim RN - 12/18/2021 11:55 AM EDT Please see patient Mychart message with attachment. documented in this encounterSelect [facility] [place]06-21-2022 Miscellaneous Notes* Telephone Encounter - Joanne Jim RN - 12/17/2021 2:49 PM EDT Phone encounter also with this same refill request for [place]. Waiting on response from patient to have attachment reviewed by ARIMUNDO. * Telephone Encounter - Mary Grace Salinassec - 12/17/2021 1:59 PM EDT Call from patient requesting refill. Pending Prescriptions Disp Refills HYDROCODONE 10 MG-ACETAMINOPHEN 325 MG TABLET 38 tablet 0 Sig: Take 1 tablet by mouth every 8 hours as needed for pain. LILLIAN Class: C-II LAWSON: No Ilana Patient last seen 2021 Mary Grace Torres [facility] documented in this encounterSelect Medical [facility] [place]06-21-2022 Instructions* Patient Instructions* Oliverio Loza APRN.ROLLER STAINER - 12/17/2021 11:21 AM EDT PATIENT PREOPERATIVE INSTRUCTIONS Christine Gutierrez PA-C has scheduled you for your procedure at this [facility] center[facility]: [phone] --[address] [place] [address]. On your scheduled day of surgery, please report to Patient Registration, ground floor Please read below carefully for your personalized instructions. Dietary Restrictions: - Nothing to eat or drink after midnight except for a sip of water with approved medications. Medications: Unless instructed differently below, stay on all of your medications until your surgery. Approved medications to take the morning of surgery with a sip of water: Lipitor, cymbalta, cardura, and metoprolol if normally taken in the morning - Please continue your current pain medications. If you take any medications for erectile dysfunction-Cialis (Tadalafil), Levitra, Staxyn (Vardenafil) Viagra (Sildenenafil please do not take these for 48 hours before surgery. If you start any new medications after today's visit, please contact the surgeon's office. Blood Thinning Medications: - Stop NSAIDS (Ibuprofen, Advil, Aleve, Motrin, Celebrex, Mobic, etc.) 7 days before surgery, as directed by your surgeon. - Stop Vitamin E, ALL multi-vitamins, herbals and dietary supplements 7 days before surgery. - You may take Tylenol (Acetaminophen) or any of your pain medications that do not contain aspirin or NSAIDS as needed. Important Reminders: - Candy, mints, and tobacco products are NOT permitted the morning of surgery. - Hearing aids, dentures and glasses may be worn the morning of surgery. - NO jewelry, body piercings, makeup, hairpins or contacts are to be worn the day of surgery. Bactroban Ointment (Mupirocin Calcium 2%) Start 12/26 Apply ointment into one nostril and then the other nostril twice daily for five days, including morning or surgery Remember to: 1. Avoid contact of the medication with your eyes. 2. Discard the tube after using, and do not reuse the tube. 3. Once the ointment has been instilled into the nostrils, press the sides of your nose together and gently massage after application of the ointment. This will help to spread the ointment throughoutthe inside of the nostrils. 4. If you develop a rash, itching or irritation of the nostrils pleas discontinue using and notify your surgeon. 5. Do not use any other intranasal medications while using this ointment. If you develop symptoms such as a fever, cold, or flu, or have other changes to your health within TWO DAYS of scheduled surgery or the morning of surgery, please contact the surgery center above. Personal Belongings: -Please have photo ID and insurance cards. -If you do not have a copy of advance directives on file with us, please bring a copy with you on the day of surgery. - Leave ALL valuables and money at home or with family members. For Outpatient Procedures: - YOU MUST HAVE A RESPONSIBLE ADMISSION LIAISON TAKE YOU HOME. A WATCHSTANDER OR CASINO CAGE MANAGER CANNOT BE MADE A RESPONSIBLE ADMISSION LIAISON. - We recommend that a responsible person stays with you overnight to take care of you. - You cannot stay in a hotel alone after outpatient surgery. You will not be permitted to have yoursurgery, if you do not have someone to take care of you. Arrival Time for Surgery: - The Surgery Center or hospital where you are having surgery will call the afternoon before surgery (or Thursday for Thursday surgery) with a scheduled arrival time. - If you have not heard by 4 pm, please contact the surgery center above. Please be aware that emergency situations arise, which may delay or change your surgical time. If this happens, we will notify you as soon as possible and regret any inconvenience. If you already have an Advance Directive, please fax a copy to [phone] or email to for it to be added to your chart. If you do not have an Advance Directive, you can find the appropriate form and more information at [email or web address]. We recommend that youcomplete the Advance Directive form found on the website and bring it with you the day of your surgery. It can be witnessed and scanned into your chart that day. documented in this encounterSelect [facility] [place]06-21-2022 History and physical note * Oliverio Loza APRN.CNP - 12/17/2021 11:17 AM EDT HISTORY AND PHYSICAL EXAMINATION SERVICE DATE: 12/17/2021 SERVICE TIME: 11:18 AM PRIMARY CARE PHYSICIAN: Jose Ray DO REASON FOR VISIT: Mary Jimenez is a 61 year old male who is scheduled for DECOMPRESSION LAMINECTOMY INTERBODY FUSION LUMBAR POSTERIOR (PLIF) LEVEL 2 at the request of Dr. Christine Gutierrez for consultation. My final recommendation will be communicated back to the requesting physician by way of shared medical record or letter. The patient has the following: ACTIVE PROBLEM LIST Adjustment Disorder With Anxious Mood Intractable Chronic Migraine Without Aura Chronic Pain Syndrome Opioid Dependence (Hcc) Primary Hypertension Cerebrovascular Accident (Cva) Due to Thrombosis (Hcc) Spondylolisthesis, Lumbar Region S/P Lumbar Fusion Mixed Hyperlipidemia Bph (Benign Prostatic Hyperplasia) Gerd (Gastroesophageal Reflux Disease) Ckd (Chronic Kidney Disease) Stage 3, Gfr 30-59 Ml/Min (Hcc) Post-Operative Infection Obesity Delirium Back Pain Low Back Pain Weakness of Left Lower Extremity Sleep Apnea Subjective CHIEF COMPLAINT: Pre-op exam HPI: This is a 61 year old male that is scheduled for the above procedure. Patient states that he had lower back surgery and his incision got infected. He was admitted to the hospital due to infection. Was treated with antibitoics and is finishing up oral antibiotics now. Denies any fever, chills, or drainage from the incision. He states that the incision is closed. He contacted his PCP and does not require a follow up from admission. He states his current pain is 8/10 and states intermittent numbness and tingling in bilateral feet. Patient states pain is improved when he lies flat. PAST MEDICAL HISTORY Diagnosis Date Anxiety Dyslipidemia Hypertension Obesity 09/12/2021 Obstructive sleep apnea Stroke (HCC) Urinary retention PAST SURGICAL HISTORY Procedure Laterality Date PAST SURGICAL HISTORY OF 12/07/2014 L4-5 PAST SURGICAL HISTORY OF Bilateral shoulder PAST SURGICAL HISTORY OF Bilateral knees REVISE MEDIAN N/CARPAL TUNNEL SURG Left FAMILY HISTORY Problem Relation Age of Onset Diabetes Mother SOCIAL HISTORY: Social History Tobacco Use Smoking status: Never Smoker Smokeless tobacco: Never Used Substance Use Topics Alcohol use: Yes Comment: 2 glasses of wine per day. Drug use: Never Comment: denies tx for drug/alcohol abuse in the past. MEDICATIONS: Prior to Admission medications as of 12/17/21 1132 Medication Sig Last Dose Taking clopidogrel (PLAVIX) 75 mg tablet Take 75 mg by mouth once daily. Yes HYDROcodone-Acetaminophen (NORCO) 10-325 mg per tablet Take 1 tablet by mouth every 8 hours as needed for pain. Yes Pregabalin (LYRICA) 200 mg capsule Take 1 capsule by mouth three times daily for 90 days. Yes doxycycline hyclate (VIBRAMYCIN) 100 mg capsule Take 1 capsule by mouth twice daily for 28 days. Yes QUEtiapine (SEROQUEL) 25 mg tablet Take 1 tablet by mouth twice daily as needed (Delirium) for up to 5 days. Yes docosahexaenoic acid/epa (FISH OIL ORAL) Take 5 capsules by mouth once daily. Yes fremanezumab-vfrm (AJOVY SYRINGE SUBCUTANEOUS) Inject 250 mg/mL subcutaneously. every 28 days for migraines Yes CHROMIUM PICOLINATE ORAL Take 800 mcg by mouth once daily. Yes MAGNESIUM ORAL Take 400 mg by mouth once daily. Yes finasteride (PROSCAR) 5 mg tablet Take 5 mg by mouth daily at bedtime. Yes CALCIUM CARBONATE/VITAMIN D3 (CALCIUM 600 + D ORAL) Take 1 tablet by mouth once daily. Yes LACTOBACILLUS ACIDOPHILUS (PROBIOTIC ACIDOPHILUS ORAL) Take 1 capsule by mouth once daily. Yes doxepin capsule 10 mg Take 10 mg by mouth daily at bedtime. Takes 2 tabs at bedtime Yes dicyclomine (BENTYL) 10 mg capsule Take 20 mg by mouth as needed. 4 times daily as needed Yes eletriptan (RELPAX) 40 mg tablet Take 40 mg by mouth as needed. may repeat in 2 hours if necessary Yes atorvastatin (LIPITOR) 80 mg tablet Take 80 mg by mouth daily at bedtime. Yes DULoxetine (CYMBALTA) 30 mg capsule Take 1 capsule by mouth once daily. Take with 60 mg for 90 mg total dose. Patient taking differently: Take 30 mg by mouth three times daily. Takes 30 mg three times daily per patient Yes baclofen (LIORESAL) 20 mg tablet Take 20 mg by mouth daily at bedtime. Yes KLOR-CON M20 20 mEq tablet Take 20 mEq by mouth once daily. Yes furosemide (LASIX) 40 mg tablet Take 40 mg by mouth once daily. Yes doxazosin (CARDURA) 4 mg tablet Take 4 mg by mouth once daily. Yes metoprolol succinate XL, long acting, (TOPROL XL) 50 mg 24 hr tablet Take 50 mg by mouth once daily. Yes cyanocobalamin (VITAMIN B-12) 1,000 mcg tab Take 1,000 mcg by mouth once daily. Yes fluticasone (FLONASE) 50 mcg/actuation nasal spray Use 2 Sprays in each nostril twice daily. Yes mupirocin (BACTROBAN) 2 % ointment Apply 1/2 Bactroban ointment with a cotton swab to each nostrilin the morning and at bedtime starting 5 days prior to surgery. docusate sodium (COLACE) 100 mg capsule Take 1 capsule by mouth twice daily. No medication comments found. CURRENT ALLERGIES: ALLERGIES Allergen Reactions Penicillins Anaphylaxis Latex Rash COVID VACCINATION STATUS: Fully vaccinated REVIEW OF SYSTEMS: PAIN ASSESSMENT: Pain Pain Level: 8 Pain Location: Back-Lower Description: Sharp;Aching Duration Units: Months Frequency: Continuous Intervention/Comfort measure: Reposition;Relaxation General: No weight loss, malaise or fevers. Neuro: Postive for Headaches Stroke-No residual deficit, Negative for TIA's Seizures Respiratory: Positive for DEANA, Negative for Asthma, COPD, Current cough, Home O2 Cardiovascular: Positive for: Anticoagulation therapy, HLD, Hypertension, Negative for Chest Pain, DVT/PE GI: Positive for GERD, Negative for Abdominal pain, Difficulty swallowing, Liver disease : No history of dysuria, frequency or incontinence,, stones or chronic kidney disease, No difficulty urinating, nocturia > 1 time per night or hematuria Endocrine: No history of diabetes. Has not taken steroids within the past 30 days. No history of endocrinological symptoms or problems. Hematology: Chronic anti-coagulation / platelet meds (Plavix) Oncology: No history of CA metastasis, chemo within 30 days, or radiotherapy within 90 days. Has not lost 10% of body wt in 6 months. No history of oncological symptoms or problems. Psych: Anxiety, Depression Musculoskeletal: See HPI Skin: Negative for lesions, rash and itching. Objective PHYSICAL EXAM: VITALS: BP 124/78 Pulse 98 Temp (Src) 97.6 (Temporal Artery) Resp 20 Ht 5' 9.5 (1.77m) Wt 259 lb(117.5kg) SpO2 97% BMI 37.71 kg/(m^2). General: Alert and oriented, No acute distress Skin: Normal color, no rash, no lesions. HEENT: EOM, pupils equal, round and reactive. Cardiovascular: Normal S1 & S2, no rubs, murmurs or gallops. No JVD. Pulse regular. Lungs: Normal breath sounds, no wheezes or crackles. Abdomen: Soft, non-tender, no rigidity., No masses or organomegaly. Extremities: No deformity, no edema or tenderness, no joint swelling or clubbing. Neurological: Normal cognition and motor skills. Gait normal. No weakness or sensory deficit. Diagnostic tests reviewed for today's visit: Labs 12/17/2021 EKG 11/21/21 Sinus rhythm Abnormal R-wave progression, early transition Abnormal ECG ECHO 09/19/21 - Exam indication: MSSA bacteremia - The left ventricle is normal in size. There is no left ventricular hypertrophy. Left ventricular systolic function is normal. EF = 55 5% (visual est.) Normal left ventricular diastolic function. - The right ventricle is mildly dilated. Right ventricular systolic function is normal. - There are no significant valvular abnormalities. - The patient has not had a prior [facility] echocardiographic exam for comparison. Assessment/Plan Cerebrovascular accident (CVA) due to thrombosis (HCC) Assessment: hx 2013, daily Plavix Follows up with neurology, no residual symptoms Stable Primary hypertension Assessment: managed with med, stable 12/17/2021 124/78 11/21/2021 129/82 10/09/2021 119/72 Mixed hyperlipidemia Assessment: managed with med, stable Intractable chronic migraine without aura Assessment: managed with med, stable GERD (gastroesophageal reflux disease) Assessment: managed with med, stable CKD (chronic kidney disease) stage 3, GFR 30-59 ml/min ([facility]) Assessment: follows up with PCP, stable Creatinine Date Value Ref Range Status 11/27/2021 1.24 (H) 0.73 - 1.22 mg/dL Final 11/22/2021 1.20 0.73 - 1.22 mg/dL Final 11/22/2021 1.29 (H) 0.73 - 1.22 mg/dL Final 09/22/2021 1.11 0.73 - 1.22 mg/dL Final Post-operative infection Assessment: see HPI Obesity Assessment: diet and exercise encouraged, BMI 37 Sleep apnea Assessment: compliant with CPAP METS: Take care of self; that is eating, dressing, bathing, using the toilet (2.75 METs) Walk a block or two on level ground (2.75 METs) Climb a flight of stairs or walk up a hill (5.50 METs) Patient denies any chest pain or undue shortness of breath with the above physical activity. ASA Class: 3 ANESTHESIA FINDINGS: Intubation History: No history of difficult intubation Significant Anesthesia Considerations: None Airway Exam: General: Morbid obesity Mallampati Score is CLASS III ULBT: Class II - Lower incisors can bite the upper lip below the bonnie line Neck: Normal appearance and function, Distance from hyoid to mentum during neck extension is at least 3 finger breaths, Short, thick neck Mouth: Normal tongue size and Mouth opening greater than 2 finger breaths Dentition: Intact Airway History: No abnormal airway history Sleep Apnea Probability Snores loudly: Yes Tired, fatigued or sleepy in daytime: No Stops breathing or choking/gasping during sleep: No High blood pressure: Yes Sleep Apnea Probability Score 08/07/2021 Sleep Apnea Screen V2 69.55 (Recommend sleep study) PLAN This patient is optimally prepared for surgery pending LABS. - Patient is able to hold plavix seven days prior to procedure, see scanned documents CONSULTS: Patient does not require consults for optimization at this time. The Following Tests/Procedures Have Been Initiated: Orders Placed This Encounter BMP Standing Status: Future Number of Occurrences: 1 Standing Expiration Date: 02/16/2022 CBC with Differential Standing Status: Future Number of Occurrences: 1 Standing Expiration Date: 02/16/2022 Type and Screen, 30 day Standing Status: Future Number of Occurrences: 1 Standing Expiration Date: 02/16/2022 clopidogrel (PLAVIX) 75 mg tablet Sig: Take 75 mg by mouth once daily. Planned Anesthetic: Per anesthesia choice Instructions Given to Patient: Instructions located in the after visit summary. Patient given verbal and written preop instructions and voices comprehension and compliance. SIGNATURE: Oliverio Loza APRN.CNP PATIENT NAME: Mary Jimenez DATE: December 17, 2021 TIME: 11:17 AM documented in this encounterSelect Medical Specialty [facility]06-09-2022 History of Present illness Narrative* Joanne Jim RN - 12/05/2021 3:57 PM EDT Neuro SPINE CARE COORDINATION SURGERY SCHEDULING Patient accepts surgery date of 12/31/[address] Steele. Planned procedure is Revision L4-Pelvis Instrumented Fusion. PACC will be scheduled. Medications reviewed : Yes. Meds to be stopped prior to surgery : anticoagulant Plavix and other : Fish Oil. Additional pre op clearances needed : other Cerebrovascular for prior CVA. On Plavix.. Any implanted devices : Yes. B/L knee replacements in 2018 and 2005 Transplant History No . Patient will get optimization lab work : Will be completed. Questions answered. Patient verbalizes understanding via teach back. Additional comments : Patent will get COVID testing completed. Neuro SPINE CARE COORDINATION PRE-OP VISIT Spoke with patient for pre op education. Given both written and verbal instructions re : Skin prep,wound care, pain management and post op restrictions. Provided to patient: [facility] Surgery Guide, skin prep supplies, Spine Surgery Pre/post op education packet. Yes. Mailed to patent's home address listed in chart. Reviewed with patient to report to registration desk for surgery ? Yes. Reviewed with the patient that a medicare sales representative will be calling him the day before to get surgery report time? Yes. Patient aware eat nothing after midnight prior to surgery, clear liquids only until 2 hours before report time. Yes. Patient aware surgery will be INPATIENT. Discussed care post discharge : Self care. Does patient have transportation to and from surgery ? Yes. Falls Education provided ? Yes Nasal swab obtained ? No. Patient instructed in mupirocin treatment : To begin treatment starting 5days prior to surgery. Questions answered and patient voice(s) understanding via teach back. Additional Comments : Post -op Support: Patient will call with any questions or concerns. Joanne Jim RN documented in this encounterSelect [facility] Evaluation + Plan note Extracted from: Title:ED Note Author:Vianca Nguyen, Stephani Willie Ananth te:11/20/21 1. Abdominal pain (R10.9: Un specified abdominal pain) 2. Back pain (M54.9: Dorsalgia, unspecified) 3. Altered mental status (R41.82: Altered mental status, unspecified) Orders: Sodium Chloride 0.9% intravenous solution, 500 mL, Soln-IV, IV, Once, Stop date 11/20/21 15:56:00 EDT, STAT, Start date 11/20/21 15:56:00 EDT, mL/hr, Infuse over 61, minute(s) Automated Diff Basic Metabolic Panel Blood Culture Charcoal Blood Culture Charcoal C-Reactive Protein CBC w/ Auto Diff CT Abdomen/Pelvis w/ Contrast CT Head or Brain w/o Contrast Drug Screen Urine eGFR Hepatic Function Panel Lactic Acid Lipase Level MRI Spine Lumbar w/ + w/o Contrast PT & PTT Saline Lock Insert Sedimentation Rate Automated UA With Cult Reflex XR Chest Single View Diagnostic Tests Pending * Vancomycin Level Trough 11/23/21 [facility]05-12-2022 Miscellaneous Notes* Telephone Encounter - Samantha Kirkland RN - 11/07/2021 8:00 AM EDT referral placed for pain management * Telephone Encounter - Sandra Mcallister - 11/06/2021 3:25 PM EDT Patient called stating he had surgery on Aug 16 and is currently in [facility] dueto not being able to walk. He is about to lose his alf coverage and will soon be discharged. Patient will be going to pain management and states his Pain Management doctor (Dr Yanelis Zuniga [facility]) needs clearance or a release (the patient wasn't clear on what was needed), so that he can get treatment from Dr Ochoa. For questions, call Dr Ochoa's office at [phone] documented in this encounterSelect [facility] Miscellaneous Notes* Telephone Encounter - Bakari Reyes V, MD - 10/24/2021 9:14 AM EDT The patient has finished 6 weeks of IV vancomycin as of today Spoke to the neurosurgeon; will discontinue intravenous vancomycin and pull his PICC line out Started doxycycline 100 mg p.o. twice daily for additional 2 weeks Further follow-up by the neurosurgery clinic. documented in this encounterSelect [facility]04-27-2022 History of Present illness Narrative* Christine Gutierrez PA-C - 10/23/2021 8:20 AM EDT SPINE SURGERY FOLLOW UP SERVICE DATE: 10/23/2021 SURGERY DATE: 08/16/2021, 09/12/2021 Mary Jimenez is seen for 6 week post operative follow up. Mr. Jimenez is s/p L5/S1 TLIF on 08/16/2021 and subsequent wound washout on 09/12/2021. He was last evaluated in office on 10/09/2021. At that time, he presented for staple removal. He hada small area of granulation tissue which was debrided in office and his parag removed. He is heretoday for a wound follow up. Today, he states he is doing okay. His back is feeling better today. He is in Acute Rehab and working with Physical and Occupational Therapy. He is making progress with therapy, he was able to sit atthe edge of the bed and eat a meal which is the longest he has been able to sit upright. He continues to have pain in the legs. He no longer has the sharp pain in his legs when he bears weight. His pain is still intermittent, he states the pain is more dull when it starts and stops. He states he continues to have visual hallucinations. When he stares at stationary object on the wall he sees it start to move. This has been present since his infection started. He has questions regarding his antibiotics. PAIN EVALUATION No data found in the last 1 encounters. ANTIPLATELET OR ANTICOAGULATION STATUS: No Patient Entered Questionnaires Spine Questions 09/04/2021 10/02/2021 10/05/2021 Pain Location: Lower back Lower back - Pain Duration: 1 to 5 years 1 to 5 years - Pain over last 6 months: Every day or nearly every day in the past 6 months Every day or nearly every day in the past 6 months - Symptoms from neck/cervical spine: No Yes No Employment Status: Disabled for reasons other than back pain Disabled for reasons other than back pain - Involved in law suit/legal claim: No No - Neck Questionnaires 10/02/2021 Benzel Modified SCARLETT Score Incomplete PROMIS Score Percentiles Physical Health 04/14/2021 09/04/2021 10/02/2021 Physical Function Percentile 3 7 0 Sleep Percentile - 2 2 Fatigue Percentile 4 8 4 Pain Interference Percentile 1 0 0 PROMIS SOCIAL ROLE SCORE 09/04/2021 10/02/2021 Social Role Satisfaction Percentile 1 1 PROMIS Global Health Scale 04/22/2017 01/28/2021 08/07/2021 Physical Health Percentile 2 1 4 Mental Health Percentile 5 1 13 Percentiles provide an indication of how the patient's score ranks in relation to the general population. Higher percentile rankings indicate better function/quality of life. 50th percentile is the average of the general population and indicates half of respondents had a worse score. Depression Screening: PHQ-9 09/04/2021 10/02/2021 10/02/2021 Score 12 14 14 PHQ-9 Self-harm Question 09/04/2021 10/02/2021 10/02/2021 Thoughts that you would be better off , or of hurting yourself in some way 0 0 0 PHQ-9 Self-Harm (Item 9) response options: 0 Not at all 1 Several days 2 More than half the days 3 Nearly every day PHQ-9 Levels: 0-4 No to mild depression 5-9 Mild depression 10-14 Moderate depression 15-19 Moderately severe depression 20-27 Severe depression PHYSICAL EXAM: There were no vitals taken for this visit. GENERAL APPEARANCE: Well nourished, well developed, and no apparent distress. NEURO PSYCH: Patient oriented to person, place, and time. Mood pleasant. Benign affect. MUSCULOSKELETAL VISUAL INSPECTION CERVICAL: WNL THORACIC: WNL WOUND ASSESSMENT: Incision is healing well, small area of scabbing where granulation tissue was present. DATA REVIEW [facility] records independently reviewed Imaging and outside records independently reviewed ASSESSMENT/PLAN No diagnosis found. Mr. Jimenez is s/p L5/S1 TLIF on 08/16/2021 and subsequent wound washout on 09/12/2021. Dr. Leon would like to discuss continued antibiotic treatment following this visit today. He will continue with Physical and Occupational Therapy at [place]. We will update him regarding antibiotic recommendations. Incision is improving, continue with current wound care, it does not appear there is room for packing material. Follow up in six weeks. Discussed with Dr. Steele that visual disturbances are likely secondary to medication and not related to infection. Mary Jimenez will continue with medical management of his/her condition. 1. No Orders Entered Today 2. Follow up: Six weeks The majority of the visit was spent counseling and/or coordinating care for the patient. The patient was counseled regarding physical therapy, lumbar fusion, wound care, healing, activity restrictions. Total face to face time was 20 minutes. Christine Gutierrez PA-C SIGNATURE: Loyda Steele MD PATIENT NAME: Mary Jimenez DATE: October 23, 2021 TIME: 8:12 AM PAGER: documented in this encounterSelect Medical [facility]04-26-2022 NoteHNO ID: [id number] Author: Bakari Reyes V, MD Service: ? Author Type: Physician Type: Progress Notes Filed: 10/22/2021 9:34 AM Note Text: SUBJECTIVE: Mary Jimenez is a 61 year old male who presents for fallow up INTERVAL HISTORY: This is a patient seen by me recently at . 61 year old male patient, PMHx Dyslipidemia, HTN, DEANA, and CVA. He underwent L5/S1 transforaminal lumbar interbody fusion (TLIF) on 08/16 at [facility]. Immediate post op period was smooth without complications. Morris were removed on 09/05 without problems at that time. However, 2 days later he started to c/o progressive pain at the surgical site, severe, sharp in quality, radiating to the posterior surface of suresh LE. Then, [facility] nurse noticed that the surgical wound was erythematous with worsening of a previously-noted serous drainage. He otherwise denied feeling of hotness, chills, or rigors. He then presented to [facility] ED where he was to be febrile at 103 F. He was then transferred and admitted to [facility]. Vancomycin IV was started. Lumbar spine CT was done, and it was mostly remarkable for nonspecific fluid and scattered foci of air in the dorsal paraspinal soft tissues. The patient underwent incision and drainage of the abscess on September 12, 2021. Blood cultures obtained on September 12 and culture obtained in OR grew MSSA. He was initially started on intravenous vancomycin which was switched over to cefazolin. On September 20 it was noted that he had additional drainage through the parag, neurosurgery placed a Prevena wound VAC. A PICC line was placed and patient was discharged to alf facility on intravenous vancomycin as he has significant history for penicillin allergy. I have followed his laboratory work although the alf facility has not been very regular in faxing reports to me The patient states that he still has pain but able to participate in OT and PT at the alf facility. He has had a virtual visit with his neurosurgeon and apparently there is another visit coming up on October 23. REVIEW OF SYSTEMS: The remainder of the review of systems is noncontributory SOCIAL HISTORY: Social History Tobacco Use - Smoking status: Never Smoker - Smokeless tobacco: Never Used Substance Use Topics - Alcohol use: Yes Comment: 2 glasses of wine per day. - Drug use: No Comment: denies tx for drug/alcohol abuse in the past. PAST MEDICAL HISTORY Diagnosis Date - Anxiety - Dyslipidemia - Hypertension - Obesity 09/12/2021 - Obstructive sleep apnea - Stroke (HCC) - Urinary retention PAST SURGICAL HISTORY Procedure Laterality Date - PAST SURGICAL HISTORY OF 12/07/14 L4-5 MEDICATIONS: Current Outpatient Medications Medication Sig - zolpidem (AMBIEN) 5 mg tablet Take by mouth. - pregabalin (LYRICA) 200 mg capsule Take 1 capsule by mouth twice daily for 30 days. - vancomycin (VANCOCIN) 1.5 g in D5W 250 mL Inject 250 mL intravenously q 12 HR. - HYDROcodone-acetaminophen (NORCO) 5-325 mg per tablet Take 1 tablet by mouth every 6 hours as needed. - bisacodyl EC (DULCOLAX) 5 mg EC tablet Take 2 tablets by mouth once daily as needed. - docosahexaenoic acid/epa (FISH OIL ORAL) Take 5 capsules by mouth once daily. - prasterone, dhea, (DHEA) 50 mg tab Take by mouth once daily. - fremanezumab-vfrm (AJOVY SYRINGE SUBCUTANEOUS) Inject 250 mg/mL subcutaneously. every 28 days for migraines - nortriptyline (PAMELOR) 50 mg capsule Take 50 mg by mouth daily at bedtime. - vitamin b complex tab Take 1 tablet by mouth once daily. 5000 mcg - cholecalciferol, vitamin D3, (VITAMIN D3 ORAL) Take 125 mcg by mouth once daily. - ubidecarenone (ULTRA COQ10 ORAL) Take 50 mg by mouth once daily. - OTC PRODUCT 350 mg once daily. Milk thistle - OTC PRODUCT 315 mg daily at bedtime. Green Tea - CHROMIUM PICOLINATE ORAL Take 800 mcg by mouth once daily. - selenium 200 mcg tablet Take 1 tablet by mouth daily at bedtime. - MAGNESIUM ORAL Take 400 mg by mouth once daily. - finasteride (PROSCAR) 5 mg tablet Take 5 mg by mouth daily at bedtime. - CALCIUM CARBONATE/VITAMIN D3 (CALCIUM 600 + D ORAL) Take 1 tablet by mouth once daily. - LACTOBACILLUS ACIDOPHILUS (PROBIOTIC ACIDOPHILUS ORAL) Take 1 capsule by mouth once daily. - dicyclomine (BENTYL) 10 mg capsule Take 20 mg by mouth as needed. 4 times daily as needed - MULTIVITS-MINERALS/FA/LYCOPENE (ONE-A-DAY MEN'S ORAL) Take by mouth. - eletriptan (RELPAX) 40 mg tablet Take 40 mg by mouth as needed. may repeat in 2 hours if necessary - promethazine (PHENERGAN) 25 mg tablet Take 25 mg by mouth as needed. - atorvastatin (LIPITOR) 80 mg tablet Take 80 mg by mouth daily at bedtime. - OMEPRAZOLE (PRILOSEC ORAL) Take 40 mg by mouth once daily. - DULoxetine (CYMBALTA) 30 mg capsule Take 1 capsule by mouth once daily. Take with 60 mg for 90 mg total dose. (Patient taking differently: Take 30 m (more content not included)...[facility]04-26-2022 History of Present illness Narrative* Bakari Reyes V, MD - 10/22/2021 9:19 AM EDT SUBJECTIVE: Mary Jimenez is a 61 year old male who presents for fallow up INTERVAL HISTORY: This is a patient seen by me recently at . 61 year old male patient, PMHx Dyslipidemia, HTN, DEANA, and CVA. He underwent L5/S1 transforaminal lumbar interbody fusion (TLIF) on 08/16 at [facility]. Immediate post op period was smooth without complications. Morris were removed on 09/05 without problems at that time. However, 2 days laterhe started to c/o progressive pain at the surgical site, severe, sharp in quality, radiating to theposterior surface of suresh LE. Then, [facility] nurse noticed that the surgical wound was erythematous with worsening of a previously-noted serous drainage. He otherwise denied feeling of hotness, chills, or rigors. He then presented to [facility] ED where he was to be febrile at 103 F. He was then transferred and admitted to [facility]. Vancomycin IV was started. Lumbar spine CT was done, and it was mostly remarkable for nonspecific fluid and scattered foci of air in the dorsal paraspinal soft tissues. The patient underwent incision and drainage of the abscess on September 12, 2021. Blood cultures obtained on September 12 and culture obtained in OR grew MSSA. He was initially started on intravenous vancomycin which was switched over to cefazolin. On September 20 it was noted that he had additional drainage through the parag, neurosurgery placed a Prevena wound VAC. A PICC line was placed and patient was discharged to alf facility on intravenous vancomycin as he has significant history for penicillin allergy. I have followed his laboratory work although the alf facility has not been very regularin faxing reports to me The patient states that he still has pain but able to participate in OT and PT at the alf facility. He has had a virtual visit with his neurosurgeon and apparently there is another visit coming up on October 23. REVIEW OF SYSTEMS: The remainder of the review of systems is noncontributory SOCIAL HISTORY: Social History Tobacco Use Smoking status: Never Smoker Smokeless tobacco: Never Used Substance Use Topics Alcohol use: Yes Comment: 2 glasses of wine per day. Drug use: No Comment: denies tx for drug/alcohol abuse in the past. PAST MEDICAL HISTORY Diagnosis Date Anxiety Dyslipidemia Hypertension Obesity 09/12/2021 Obstructive sleep apnea Stroke (HCC) Urinary retention PAST SURGICAL HISTORY Procedure Laterality Date PAST SURGICAL HISTORY OF 12/07/14 L4-5 MEDICATIONS: Current Outpatient Medications Medication Sig zolpidem (AMBIEN) 5 mg tablet Take by mouth. pregabalin (LYRICA) 200 mg capsule Take 1 capsule by mouth twice daily for 30 days. vancomycin (VANCOCIN) 1.5 g in D5W 250 mL Inject 250 mL intravenously q 12 HR. HYDROcodone-acetaminophen (NORCO) 5-325 mg per tablet Take 1 tablet by mouth every 6 hours as needed. bisacodyl EC (DULCOLAX) 5 mg EC tablet Take 2 tablets by mouth once daily as needed. docosahexaenoic acid/epa (FISH OIL ORAL) Take 5 capsules by mouth once daily. prasterone, dhea, (DHEA) 50 mg tab Take by mouth once daily. fremanezumab-vfrm (AJOVY SYRINGE SUBCUTANEOUS) Inject 250 mg/mL subcutaneously. every 28 days for migraines nortriptyline (PAMELOR) 50 mg capsule Take 50 mg by mouth daily at bedtime. vitamin b complex tab Take 1 tablet by mouth once daily. 5000 mcg cholecalciferol, vitamin D3, (VITAMIN D3 ORAL) Take 125 mcg by mouth once daily. ubidecarenone (ULTRA COQ10 ORAL) Take 50 mg by mouth once daily. OTC PRODUCT 350 mg once daily. Milk thistle OTC PRODUCT 315 mg daily at bedtime. Green Tea CHROMIUM PICOLINATE ORAL Take 800 mcg by mouth once daily. selenium 200 mcg tablet Take 1 tablet by mouth daily at bedtime. MAGNESIUM ORAL Take 400 mg by mouth once daily. finasteride (PROSCAR) 5 mg tablet Take 5 mg by mouth daily at bedtime. CALCIUM CARBONATE/VITAMIN D3 (CALCIUM 600 + D ORAL) Take 1 tablet by mouth once daily. LACTOBACILLUS ACIDOPHILUS (PROBIOTIC ACIDOPHILUS ORAL) Take 1 capsule by mouth once daily. dicyclomine (BENTYL) 10 mg capsule Take 20 mg by mouth as needed. 4 times daily as needed MULTIVITS-MINERALS/FA/LYCOPENE (ONE-A-DAY MEN'S ORAL) Take by mouth. eletriptan (RELPAX) 40 mg tablet Take 40 mg by mouth as needed. may repeat in 2 hours if necessary promethazine (PHENERGAN) 25 mg tablet Take 25 mg by mouth as needed. atorvastatin (LIPITOR) 80 mg tablet Take 80 mg by mouth daily at bedtime. OMEPRAZOLE (PRILOSEC ORAL) Take 40 mg by mouth once daily. DULoxetine (CYMBALTA) 30 mg capsule Take 1 capsule by mouth once daily. Take with 60 mg for 90 mg total dose. (Patient taking differently: Take 30 mg by mouth three times daily. Takes 30 mg three times daily per patient ) KLOR-CON M20 20 mEq tablet Take 20 mEq by mouth once daily. furosemide (LASIX) 40 mg tablet Take 40 mg by mouth once daily. doxazosin (CARDURA) 4 mg tablet Take 4 mg by mouth once daily. metoprolol succinate XL, long acting, (TOPROL XL) 50 mg 24 hr tablet Take 50 mg by mouth once daily. valACYclovir (VALTREX) 500 mg tablet Take 500 mg by mouth as needed. telmisartan (MICARDIS) 80 mg tablet Take 80 mg by mouth daily at bedtime. QUEtiapine (SEROQUEL) 50 mg tablet Take 1 tablet by mouth daily at bedtime. docusate sodium (COLACE) 100 mg capsule Take 1 capsule by mouth twice daily. polyethylene glycol 3350 (MIRALAX, GLYCOLAX) 17 gram packet Take 1 Packet by mouth once daily. Dissolve dose in 4 - 8 ounces of liquid and take as directed. (Patient taking differently: Take 17 g by mouth once daily as needed. Dissolve dose in 4 - 8 ounces of liquid and take as directed. ) Ascorbic Acid (VITAMIN C) 500 mg chew Take 500 mg by mouth once daily. sildenafil (VIAGRA) 50 mg tablet Take 50 mg by mouth as needed. onabotulinum toxin type A (BOTOX) 100 unit solr every 90 days for migraines OTC NUTRITIONAL SUPPLEMENT once daily. Tumeric 500 mg x2 OTC NUTRITIONAL SUPPLEMENT 500 mg once daily. Curcumin Berb Sampson/herbal complex no.18 (BERBERINE-HERBAL COMB NO.18 ORAL) Take 1,000 mg by mouth once daily. TESTOSTERONE INTRAMUSC. Inject 300 mg intramuscularly every other week. doxepin capsule 10 mg Take 10 mg by mouth daily at bedtime. Takes 2 tabs at bedtime BIOTIN ORAL Take 10 mcg by mouth daily at bedtime. baclofen (LIORESAL) 20 mg tablet Take 20 mg by mouth daily at bedtime. cyanocobalamin (VITAMIN B-12) 1,000 mcg tab Take 1,000 mcg by mouth once daily. fluticasone (FLONASE) 50 mcg/actuation nasal spray Use 2 Sprays in each nostril twice daily. No current facility-administered medications for this visit. ALLERGIES: ALLERGIES Allergen Reactions Penicillins Anaphylaxis Latex Rash PHYSICAL EXAMINATION: Resp 20 Ht 5' 9.5 (1.77m) Wt 271 lb (122.9kg) BMI 39.46 kg/(m^2). General appearance: Very difficult exam in the office as the ambulance drivers dropped him off witha chair from which we were unable to transfer him to a regular bed. I was able to briefly bring himup and look at the back wound which appears to have been doing okay without any significant dehiscence or wound drainage. Lungs: Clear Cardiac: RRR: Abdomen: Benign: DATA: [facility] records reviewed: 1. Postoperative infection, unspecified type, subsequent encounter 2. S/P lumbar fusion I will continue intravenous vancomycin for now and have a further discussion with Dr. Steele the neurosurgeon on October 23 and decide on further antimicrobial therapy. No follow-ups on file. documented in this encounterSelect [facility] History of Present illness Narrative* Loyda Steele MD - 10/09/2021 10:40 AM EDT SPINE SURGERY FOLLOW UP SERVICE DATE: 10/09/2021 SURGERY DATE: 08/16/21, 09/12/21 Mary Jimenez is seen for 1 month post operative follow up. S/p L5/S1 TLIF and lumbar wound washout on 08/16/21 and 09/12/21 At [facility] he complained of low back pain and bilateral leg pain which was slowly improving. He was still had wound vac in place and was on antibiotics. He presents today for staple removal. Patient reports some improvement in his symptoms. His wound has been healing appropriately ANTIPLATELET OR ANTICOAGULATION STATUS: No Patient Entered Questionnaires Spine Questions 09/04/2021 10/02/2021 10/05/2021 Pain Location: Lower back Lower back - Pain Duration: 1 to 5 years 1 to 5 years - Pain over last 6 months: Every day or nearly every day in the past 6 months Every day or nearly every day in the past 6 months - Symptoms from neck/cervical spine: No Yes No Employment Status: Disabled for reasons other than back pain Disabled for reasons other than back pain - Involved in law suit/legal claim: No No - Neck Questionnaires 10/02/2021 Benzel Modified SCARLETT Score Incomplete PROMIS Score Percentiles Physical Health 04/14/2021 09/04/2021 10/02/2021 Physical Function Percentile 3 7 0 Sleep Percentile - 2 2 Fatigue Percentile 4 8 4 Pain Interference Percentile 1 0 0 PROMIS SOCIAL ROLE SCORE 09/04/2021 10/02/2021 Social Role Satisfaction Percentile 1 1 PROMIS Global Health Scale 04/22/2017 01/28/2021 08/07/2021 Physical Health Percentile 2 1 4 Mental Health Percentile 5 1 13 Percentiles provide an indication of how the patient's score ranks in relation to the general population. Higher percentile rankings indicate better function/quality of life. 50th percentile is the average of the general population and indicates half of respondents had a worse score. Depression Screening: PHQ-9 09/04/2021 10/02/2021 10/02/2021 Score 12 14 14 PHQ-9 Self-harm Question 09/04/2021 10/02/2021 10/02/2021 Thoughts that you would be better off , or of hurting yourself in some way 0 0 0 PHQ-9 Self-Harm (Item 9) response options: 0 Not at all 1 Several days 2 More than half the days 3 Nearly every day PHQ-9 Levels: 0-4 No to mild depression 5-9 Mild depression 10-14 Moderate depression 15-19 Moderately severe depression 20-27 Severe depression PHYSICAL EXAM: BP 119/72 Pulse 78 Temp 36.3 C (97.3 F) (Temporal) Ht 176.5 cm (5' 9.5 ) Wt 123 kg (271 lb 3.2 oz) BMI 39.48 kg/m Oriented x3 PERRL FS Motor: UE D 5/5, B 5/5, T 5/5, G 5/5, HI 5/5 LE HF 5/5, KE 5/5, DF 5/5, PF 5/5, EHL 5/5 The segment of the middle was healing appropriately with some granulation tissue in the surrounding. DATA REVIEW No additional images reviewed today ASSESSMENT/PLAN (M43.16) Spondylolisthesis of lumbar region (primary encounter diagnosis) 1. Continue with dressing changes and possible packing 2. Follow up: 2 weeks SIGNATURE: Loyda Steele MD PATIENT NAME: Mary Jimenez DATE: October 09, 2021 TIME: 8:12 AM PAGER: documented in this encounterSelect Medical [facility] History of Present illness Narrative* Loyda Steele MD - 10/02/2021 7:54 AM EDT SPINE SURGERY FOLLOW UP SERVICE DATE: 10/02/2021 SURGERY DATE: 08/16/2021, 09/12/2021 S/p L5/S1 TLIF and lumbar wound washout Mary Jimenez is seen for 3 week post operative follow up. Since last time I saw the patient he reports ongoing low back pain bilateral leg pain. Slowly improving. He still having incisional wound VAC and still has some drainage from it. Drainage mostly serous looking. Still taking antibiotics ANTIPLATELET OR ANTICOAGULATION STATUS: No Patient Entered Questionnaires Spine Questions 09/04/2021 10/02/2021 Pain Location: Lower back Lower back Pain Duration: 1 to 5 years 1 to 5 years Pain over last 6 months: Every day or nearly every day in the past 6 months Every day or nearly every day in the past 6 months Symptoms from neck/cervical spine: No Yes Employment Status: Disabled for reasons other than back pain Disabled for reasons other than back pain Involved in law suit/legal claim: No No Neck Questionnaires 10/02/2021 Benzel Modified SCARLETT Score Incomplete PROMIS Score Percentiles Physical Health 04/14/2021 09/04/2021 10/02/2021 Physical Function Percentile 3 7 0 Sleep Percentile - 2 2 Fatigue Percentile 4 8 4 Pain Interference Percentile 1 0 0 PROMIS SOCIAL ROLE SCORE 09/04/2021 10/02/2021 Social Role Satisfaction Percentile 1 1 PROMIS Global Health Scale 04/22/2017 01/28/2021 08/07/2021 Physical Health Percentile 2 1 4 Mental Health Percentile 5 1 13 Percentiles provide an indication of how the patient's score ranks in relation to the general population. Higher percentile rankings indicate better function/quality of life. 50th percentile is the average of the general population and indicates half of respondents had a worse score. Depression Screening: PHQ-9 09/04/2021 10/02/2021 10/02/2021 Score 12 14 14 PHQ-9 Self-harm Question 09/04/2021 10/02/2021 10/02/2021 Thoughts that you would be better off , or of hurting yourself in some way 0 0 0 PHQ-9 Self-Harm (Item 9) response options: 0 Not at all 1 Several days 2 More than half the days 3 Nearly every day PHQ-9 Levels: 0-4 No to mild depression 5-9 Mild depression 10-14 Moderate depression 15-19 Moderately severe depression 20-27 Severe depression PHYSICAL EXAM: There were no vitals taken for this visit. Limited due to virtual visit DATA REVIEW No additional images reviewed today ASSESSMENT/PLAN (Z98.1) S/P lumbar fusion (primary encounter diagnosis) 1. Patient will need to be evaluated in person for incision and parag removal. We will coordinateon him coming here next week for evaluation. 2. Follow up: 1 week I spent 15 minutes constipations current symptom future plan SIGNATURE: Loyda Steele MD PATIENT NAME: Mary Prieto Barbara DATE: October 02, 2021 TIME: 8:01 AM PAGER: [facility] History of Present illness Narrative* Effie Beltran PA-C - 09/04/2021 11:20 AM EST Opened in error documented in [facility] [place] NoteHNO ID: [id number] Author: Elys Don MD Service: General Internal Medicine Author Type: Physician Type: Progress Notes Filed: 08/19/2021 4:42 PM Note Text: PROGRESS NOTE - INTERNAL MEDICINE PATIENT NAME: Mary Jimenez SERVICE DATE: August 19, 2021 SERVICE TIME: 4:41 PM PCP: Jose Ray DO ADMITTING PHYSICIAN: Loyda Steele MD MD INTERVAL HISTORY OF PRESENT ILLNESS: Pt seen felt ok / pain controlled . No dizzness . No sob REVIEW OF SYSTEMS: GENERAL: No weight loss, malaise or fevers RESPIRATORY: Negative for cough, hemoptysis, wheezing, COPD, dyspnea or shortness of breath CARDIOVASCULAR: Negative for chest pain, leg swelling, hypertension, CHF or palpitations GI: No nausea, vomiting, or diarrhea : No history of dysuria, frequency or incontinence PSYCH: Negative for sleep disturbance, mood disorder and recent psychosocial stressors. ENDOCRINE: Negative for cold or heat intolerance, polyuria, polydipsia and goiter All other reviewed and negative other than HPI. PRIOR TO ADMISSION MEDICATIONS: pregabalin (LYRICA) 100 mg capsule, Take 1 capsule by mouth three times daily., Disp: , Rfl: , 08/15/2021 at 2100 aspirin 325 mg tablet, Take 325 mg by mouth as needed., Disp: , Rfl: , 08/15/2021 at 0800 prasterone, dhea, (DHEA) 50 mg tab, Take by mouth once daily., Disp: , Rfl: , Past Week at Unknown time nortriptyline (PAMELOR) 50 mg capsule, Take 50 mg by mouth daily at bedtime., Disp: , Rfl: , 08/15/2021 at 2100 diclofenac sodium (VOLTAREN) 1 % topical gel, Apply to affected area three times daily. , Disp: , Rfl: , 08/15/2021 at 1300 finasteride (PROSCAR) 5 mg tablet, Take 5 mg by mouth once daily. , Disp: , Rfl: , 08/15/2021 at 2100 HYDROcodone-acetaminophen (NORCO) 5-325 mg per tablet, three times daily. , Disp: , Rfl: , 08/15/2021 at 2100 doxepin capsule 10 mg, Take 10 mg by mouth daily at bedtime. Takes 2 tabs at bedtime , Disp: , Rfl: , 08/15/2021 at 2100 clopidogrel (PLAVIX) 75 mg tablet, Take 1 tablet by mouth once daily., Disp: , Rfl: 0, Past Week at Unknown time atorvastatin (LIPITOR) 80 mg tablet, Take 80 mg by mouth once daily. , Disp: , Rfl: , 08/15/2021 [place] [address] OMEPRAZOLE (PRILOSEC ORAL), Take 40 mg by mouth once daily., Disp: , Rfl: , 08/16/2021 at 0400 DULoxetine (CYMBALTA) 30 mg capsule, Take 1 capsule by mouth once daily. Take with 60 mg for 90 mg total dose. (Patient taking differently: Take 30 mg by mouth three times daily. Takes 30 mg three times daily per patient ), Disp: 30 capsule, Rfl: 11, 08/15/2021 at 2100 baclofen (LIORESAL) 20 mg tablet, Take 20 mg by mouth once daily. , Disp: , Rfl: , 08/15/2021 at 0800 furosemide (LASIX) 40 mg tablet, Take 40 mg by mouth once daily., Disp: , Rfl: , 08/15/2021 at 0800 doxazosin (CARDURA) 4 mg tablet, Take 4 mg by mouth once daily. , Disp: , Rfl: , 08/15/2021 at 2100 metoprolol succinate XL, long acting, (TOPROL XL) 50 mg 24 hr tablet, Take 50 mg by mouth once daily., Disp: , Rfl: , 08/16/2021 at 0400 valACYclovir (VALTREX) 500 mg tablet, Take 500 mg by mouth as needed. , Disp: , Rfl: , 08/15/2021 at 0800 telmisartan (MICARDIS) 80 mg tablet, Take 80 mg by mouth once daily., Disp: , Rfl: , 08/15/2021 at 1300 fluticasone (FLONASE) 50 mcg/actuation nasal spray, Use 2 Sprays in each nostril twice daily. , Disp: , Rfl: , 08/16/2021 at 0400 Ascorbic Acid (VITAMIN C) 500 mg chew, Take 500 mg by mouth once daily., Disp: , Rfl: , 08/02/2021 sildenafil (VIAGRA) 50 mg tablet, Take 50 mg by mouth as needed., Disp: , Rfl: Phentermine HCl 37.5 mg capsule, Take 37.5 mg by mouth once daily., Disp: , Rfl: docosahexaenoic acid/epa (FISH OIL ORAL), Take by mouth once daily., Disp: , Rfl: , 08/02/2021 OTC PRODUCT, once daily. Leptitox : 2 tabs, Disp: , Rfl: onabotulinum toxin type A (BOTOX) 100 unit solr, every 90 days for migraines, Disp: , Rfl: , 07/16/2021 fremanezumab-vfrm (AJOVY SYRINGE SUBCUTANEOUS), Inject 250 mg/mL subcutaneously. every 28 days for migraines, Disp: , Rfl: , 08/06/2021 vitamin b complex tab, Take 1 tablet by mouth once daily. 5000 mcg, Disp: , Rfl: , 08/02/2021 cholecalciferol, vitamin D3, (VITAMIN D3 ORAL), Take 125 mcg by mouth once daily., Disp: , Rfl: , 08/02/2021 ubidecarenone (ULTRA COQ10 ORAL), Take 50 mg by mouth once daily., Disp: , Rfl: , 07/29/2021 OTC NUTRITIONAL SUPPLEMENT, once daily. Tumeric 500 mg x2, Disp: , Rfl: , 08/02/2021 OTC NUTRITIONAL SUPPLEMENT, 500 mg once daily. Curcumin, Disp: , Rfl: , 08/02/2021 OTC PRODUCT, 350 mg once daily. Milk thistle, Disp: , Rfl: , 08/02/2021 OTC PRODUCT, 315 mg once daily. Green Tea, Disp: , Rfl: , 08/02/2021 CHROMIUM PICOLINATE ORAL, Take 800 mcg by mouth once daily., Disp: , Rfl: , 08/02/2021 selenium 200 mcg tablet, Take 1 tablet by mouth once daily., Disp: , Rfl: , 08/02/2021 Berb Sampson/herbal complex no.18 (BERBERINE-HERBAL COMB NO.18 ORAL), Take 1,000 mg by mouth twice daily., Disp: , Rfl: , 07/29/2021 (more content not included)...[address]21-2022 NoteHNO ID: [id number] Author: Christy Cat PA-C Service: Neurosurgery Author Type: Physician Stamp Analyst Type: Progress Notes Filed: 08/19/2021 9:30 AM Note Text: NEUROSURGERY POST OP PROGRESS NOTE SERVICE DATE: 08/19/2021 SERVICE TIME: 9:25 AM POST OP DAY: #3 SUBJECTIVE Patient states he still has weakness in BLE, left worse than right. He states his pain is much improved since yesterday. He reports incisional soreness. Pain is currently controlled with oral pain medications. He denies new numbness, tingling, or weakness. He denies fevers, chest pain, SOB, or N/V. He is voiding independently and passing flatus. GUADALUPE drain intact. OBJECTIVE BP 125/54 Pulse 78 Temp 36.6 ?C (97.9 ?F) (Oral) Resp 17 Ht 176.5 cm (5' 9.5 ) Wt 136.1 kg (300 lb) SpO2 99% BMI 43.67 kg/m? GENERAL: Alert, cooperative, and pleasant in no distress. Obese, appears well-developed and well-nourished. LUNGS: Lungs clear to auscultation, no wheezing or rales noted. Good diaphragmatic excursion. CARDIAC: Normal S1 and S2; no rubs, murmurs, or gallops. ABDOMEN: Soft, obese, NTND, BS normal x4. EXTREMITIES: 5/5 strength except left hip flexion 4/5. NEURO: Alert and oriented to person, place, and time. Sensation and cognition intact. PULSES: 2+ dorsalis pedis Incision: Dressing CDI. Drain: serosanguineous output is 20ml/24hrs Lira: no lira Current Facility-Administered Medications Medication Dose Route Frequency - amitriptyline 25 mg tab(s) (ELAVIL) 25 mg ORAL AT BEDTIME - doxazosin 4 mg tab(s) (CARDURA) 4 mg ORAL AT BEDTIME - pregabalin 100 mg cap(s) (LYRICA) 100 mg ORAL TID - atorvastatin 80 mg tab(s) (LIPITOR) 80 mg ORAL AT BEDTIME - metoprolol succinate ER 50 mg tab(s) (TOPROL XL) 50 mg ORAL DAILY - DULoxetine 30 mg cap(s) (CYMBALTA) 30 mg ORAL TID - NaCl 0.9% iv flush bag 20 mL INTRAVENOUS PRN - sodium chloride 0.9 % (flush) 3-5 mL (BD POSIFLUSH) 3-5 mL INTRAVENOUS q 12 H - docusate sodium 100 mg cap(s) (COLACE) 100 mg ORAL BID - valsartan 160 mg tab(s) (DIOVAN) 160 mg ORAL DAILY - finasteride 5 mg tab(s) (PROSCAR) 5 mg ORAL DAILY - ondansetron (PF) 4 mg injection (ZOFRAN) 4 mg INTRAVENOUS q 6 H PRN - benzocaine-menthol 1 Lozenge (CEPACOL) 1 Lozenge MUCOUS MEMBRANE (TOPICAL MOUTH AND THROAT) q 2 H PRN - polyethylene glycol 3350 17 g packet (MIRALAX, GLYCOLAX) 17 g ORAL DAILY - dicyclomine 20 mg tab(s) (BENTYL) 20 mg ORAL QID PRN - lactobacillus rhamnosus 10 billion cell (CULTURELLE) capsule 1 capsule ORAL DAILY - doxepin 10 mg cap(s) (SINEquan) 10 mg ORAL AT BEDTIME - nortriptyline 50 mg cap(s) (PAMELOR) 50 mg ORAL AT BEDTIME - pantoprazole DR 40 mg tab(s) (PROTONIX) 40 mg ORAL DAILY (6 AM) - acetaminophen 1,000 mg tab(s) (TYLENOL) 1,000 mg ORAL q 8 H - oxyCODONE IR 5-10 mg tab(s) (ROXICODONE) 5-10 mg ORAL q 4 H PRN - bisacodyl EC 10 mg tab(s) (DULCOLAX) 10 mg ORAL DAILY PRN - heparin 5,000 Units injection 5,000 Units SUBCUTANEOUS q 12 H - hydrOXYzine HCl 25 mg tab(s) (ATARAX) 25 mg ORAL q 6 H PRN - methocarbamol 500 mg tab(s) (ROBAXIN) 500 mg ORAL TID PRN ASSESSMENT AND PLAN Mary Ida Jimenez is a 61 year old status post L5/S1 TLIF on 08/16/[address] Steele -Most recent labs and imaging results reviewed -Dressing clean, dry, and intact, incision well approximated with parag. -Drain removed today -Lira catheter removed POD #1, voiding independently -PT recommends home PT -Incentive spirometry, Brynn Daley, start Heparin SC this evening -Post-operative pain control Tylenol scheduled and oxycodone and robaxin PRN -Obtain postop lumbar XR today -Medicine consult for post-operative medical management -Discharge planning, Plan of care discussed with Dr. Steele. Medication and Non-Pharmacologic VTE Prophylaxis/Anticoagulants Anticoagulant AND Antiplatelet Medications (From admission, onward) Start Dose Route Frequency Last Action Ordered Stop 08/18/21 2100 heparin 5,000 Units injection 5,000 Units SUBCUTANEOUS EVERY 12 HOURS Given, 08/18 200608/18/21 0946 -- 08/18/21 1000 graduated compression stockings ([place], [place] 08/16/21 1700 vte pharmacologic prophylaxis contraindicated ([place] 08/16/21 1700 pneumatic compression stockings [place] 08/16/21 170 activity - mobilize patient ([place]) VTE Prophylaxis: VTE prophylaxis appropriate SIGNATURE: Christy Cat PA-C PATIENT NAME: Mary Jimenez DATE: August 19, 2021 TIME: 9:25 [facility]02-20-2022 NoteHNO ID: [id number] Author: Myra Alejandro APRN.ROLLER STAINER Service: Neurosurgery Author Type: Nurse Practitioner Type: Progress Notes Filed: 08/18/2021 1:20 PM Note Text: NEUROSURGERY POST OP PROGRESS NOTE SERVICE DATE: 08/18/2021 SERVICE TIME: 1:10 PM POST OP DAY: #2 SUBJECTIVE Patient states that the preoperative symptoms of left sided lower back pain and left sided sciatica are the same since surgery. He reports incisional soreness. Pain is currently moderately controlled with oral pain medications. He denies new numbness, tingling, or weakness. He denies fevers, chest pain, SOB, or N/V. He is voiding independently and passing flatus. GUADALUPE drain intact. OBJECTIVE BP 122/70 Pulse 102 Temp 36.9 ?C (98.4 ?F) (Oral) Resp 17 Ht 176.5 cm (5' 9.5 ) Wt 136.1 kg (300 lb) SpO2 96% BMI 43.67 kg/m? GENERAL: Alert, cooperative, and pleasant in no distress. Obese, appears well-developed and well-nourished. LUNGS: Lungs clear to auscultation, no wheezing or rales noted. Good diaphragmatic excursion. CARDIAC: Normal S1 and S2; no rubs, murmurs, or gallops. ABDOMEN: Soft, obese, NTND, BS normal x4. EXTREMITIES: Bilateral lower extremities with +5/5 strength intact. NEURO: Alert and oriented to person, place, and time. Sensation and cognition intact. PULSES: 2+ dorsalis pedis Incision: Dressing CDI. Drain: serosanguineous output is 100ml/24hrs Lira: no lira Current Facility-Administered Medications Medication Dose Route Frequency - amitriptyline 25 mg tab(s) (ELAVIL) 25 mg ORAL AT BEDTIME - doxazosin 4 mg tab(s) (CARDURA) 4 mg ORAL AT BEDTIME - pregabalin 100 mg cap(s) (LYRICA) 100 mg ORAL TID - atorvastatin 80 mg tab(s) (LIPITOR) 80 mg ORAL AT BEDTIME - metoprolol succinate ER 50 mg tab(s) (TOPROL XL) 50 mg ORAL DAILY - DULoxetine 30 mg cap(s) (CYMBALTA) 30 mg ORAL TID - NaCl 0.9% iv flush bag 20 mL INTRAVENOUS PRN - sodium chloride 0.9 % (flush) 3-5 mL (BD POSIFLUSH) 3-5 mL INTRAVENOUS q 12 H - lactated ringers iv infusion 75 mL/hr INTRAVENOUS CONTINUOUS - docusate sodium 100 mg cap(s) (COLACE) 100 mg ORAL BID - valsartan 160 mg tab(s) (DIOVAN) 160 mg ORAL DAILY - finasteride 5 mg tab(s) (PROSCAR) 5 mg ORAL DAILY - ondansetron (PF) 4 mg injection (ZOFRAN) 4 mg INTRAVENOUS q 6 H PRN - benzocaine-menthol 1 Lozenge (CEPACOL) 1 Lozenge MUCOUS MEMBRANE (TOPICAL MOUTH AND THROAT) q 2 H PRN - polyethylene glycol 3350 17 g packet (MIRALAX, GLYCOLAX) 17 g ORAL DAILY - dicyclomine 20 mg tab(s) (BENTYL) 20 mg ORAL QID PRN - lactobacillus rhamnosus 10 billion cell (CULTURELLE) capsule 1 capsule ORAL DAILY - doxepin 10 mg cap(s) (SINEquan) 10 mg ORAL AT BEDTIME - nortriptyline 50 mg cap(s) (PAMELOR) 50 mg ORAL AT BEDTIME - [START ON 08/19/2021] pantoprazole DR 40 mg tab(s) (PROTONIX) 40 mg ORAL DAILY (6 AM) - acetaminophen 1,000 mg tab(s) (TYLENOL) 1,000 mg ORAL q 8 H - oxyCODONE IR 5-10 mg tab(s) (ROXICODONE) 5-10 mg ORAL q 4 H PRN - bisacodyl EC 10 mg tab(s) (DULCOLAX) 10 mg ORAL DAILY PRN - heparin 5,000 Units injection 5,000 Units SUBCUTANEOUS q 12 H - hydrOXYzine HCl 25 mg tab(s) (ATARAX) 25 mg ORAL q 6 H PRN ASSESSMENT AND PLAN Mary Jimenez is a 61 year old status post L5/S1 TLIF on 08/16/[address] 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 Steele. Medication and Non-Pharmacologic VTE Prophylaxis/Anticoagulants Anticoagulant AND Antiplatelet Medications (From admission, onward) Start Dose Route Frequency Last Action Ordered Stop 08/18/21 2100 heparin 5,000 Units injection 5,000 Units SUBCUTANEOUS EVERY 12 HOURS Ordered 08/18/21 0946 -- 08/18/21 1000 graduated compression stockings ([place]) 08/16/21 1700 vte pharmacologic prophylaxis contraindicated ([place]) 08/16/21 1700 pneumatic compression stockings ([place]) 08/16/21 1700 activity - mobilize patient ([place]) VTE Prophylaxis: VTE prophylaxis appropriate SIGNATURE: Myra Alejandro APRN.CNP PATIENT NAME: Mary Jimenez DATE: August 18, 2021 TIME: 1:09 [facility]02-20-2022 NoteHNO ID: [id number] Author: Elsy Don MD Service: General Internal Medicine Author Type: Physician Type: Progress Notes Filed: 08/19/2021 4:42 PM Note Text: PROGRESS NOTE - INTERNAL MEDICINE PATIENT NAME: Mary Jimenez SERVICE DATE: August 18, 2021 SERVICE TIME: 12:31 PM PCP: Jose Ray DO ADMITTING PHYSICIAN: Loyda Steele MD MD INTERVAL HISTORY OF PRESENT ILLNESS: pt seen felt ok / pain controlled / no weaknes s REVIEW OF SYSTEMS: GENERAL: No weight loss, malaise or fevers RESPIRATORY: Negative for cough, hemoptysis, wheezing, COPD, dyspnea or shortness of breath CARDIOVASCULAR: Negative for chest pain, leg swelling, hypertension, CHF or palpitations GI: No nausea, vomiting, or diarrhea : No history of dysuria, frequency or incontinence PSYCH: Negative for sleep disturbance, mood disorder and recent psychosocial stressors. ENDOCRINE: Negative for cold or heat intolerance, polyuria, polydipsia and goiter All other reviewed and negative other than HPI. PRIOR TO ADMISSION MEDICATIONS: pregabalin (LYRICA) 100 mg capsule, Take 1 capsule by mouth three times daily., Disp: , Rfl: , 08/15/2021 at 2100 aspirin 325 mg tablet, Take 325 mg by mouth as needed., Disp: , Rfl: , 08/15/2021 at 0800 prasterone, dhea, (DHEA) 50 mg tab, Take by mouth once daily., Disp: , Rfl: , Past Week at Unknown time nortriptyline (PAMELOR) 50 mg capsule, Take 50 mg by mouth daily at bedtime., Disp: , Rfl: , 08/15/2021 at 2100 diclofenac sodium (VOLTAREN) 1 % topical gel, Apply to affected area three times daily. , Disp: , Rfl: , 08/15/2021 at 1300 finasteride (PROSCAR) 5 mg tablet, Take 5 mg by mouth once daily. , Disp: , Rfl: , 08/15/2021 at 2100 HYDROcodone-acetaminophen (NORCO) 5-325 mg per tablet, three times daily. , Disp: , Rfl: , 08/15/2021 at 2100 doxepin capsule 10 mg, Take 10 mg by mouth daily at bedtime. Takes 2 tabs at bedtime , Disp: , Rfl: , 08/15/2021 at 2100 clopidogrel (PLAVIX) 75 mg tablet, Take 1 tablet by mouth once daily., Disp: , Rfl: 0, Past Week at Unknown time atorvastatin (LIPITOR) 80 mg tablet, Take 80 mg by mouth once daily. , Disp: , Rfl: , 08/15/2021 at 07862 OMEPRAZOLE (PRILOSEC ORAL), Take 40 mg by mouth once daily., Disp: , Rfl: , 08/16/2021 at 0400 DULoxetine (CYMBALTA) 30 mg capsule, Take 1 capsule by mouth once daily. Take with 60 mg for 90 mg total dose. (Patient taking differently: Take 30 mg by mouth three times daily. Takes 30 mg three times daily per patient ), Disp: 30 capsule, Rfl: 11, 08/15/2021 at 2100 baclofen (LIORESAL) 20 mg tablet, Take 20 mg by mouth once daily. , Disp: , Rfl: , 08/15/2021 at 0800 furosemide (LASIX) 40 mg tablet, Take 40 mg by mouth once daily., Disp: , Rfl: , 08/15/2021 at 0800 doxazosin (CARDURA) 4 mg tablet, Take 4 mg by mouth once daily. , Disp: , Rfl: , 08/15/2021 at 2100 metoprolol succinate XL, long acting, (TOPROL XL) 50 mg 24 hr tablet, Take 50 mg by mouth once daily., Disp: , Rfl: , 08/16/2021 at 0400 valACYclovir (VALTREX) 500 mg tablet, Take 500 mg by mouth as needed. , Disp: , Rfl: , 08/15/2021 at 0800 telmisartan (MICARDIS) 80 mg tablet, Take 80 mg by mouth once daily., Disp: , Rfl: , 08/15/2021 at 1300 fluticasone (FLONASE) 50 mcg/actuation nasal spray, Use 2 Sprays in each nostril twice daily. , Disp: , Rfl: , 08/16/2021 at 0400 Ascorbic Acid (VITAMIN C) 500 mg chew, Take 500 mg by mouth once daily., Disp: , Rfl: , 08/02/2021 sildenafil (VIAGRA) 50 mg tablet, Take 50 mg by mouth as needed., Disp: , Rfl: Phentermine HCl 37.5 mg capsule, Take 37.5 mg by mouth once daily., Disp: , Rfl: docosahexaenoic acid/epa (FISH OIL ORAL), Take by mouth once daily., Disp: , Rfl: , 08/02/2021 OTC PRODUCT, once daily. Leptitox : 2 tabs, Disp: , Rfl: onabotulinum toxin type A (BOTOX) 100 unit solr, every 90 days for migraines, Disp: , Rfl: , 07/16/2021 fremanezumab-vfrm (AJOVY SYRINGE SUBCUTANEOUS), Inject 250 mg/mL subcutaneously. every 28 days for migraines, Disp: , Rfl: , 08/06/2021 vitamin b complex tab, Take 1 tablet by mouth once daily. 5000 mcg, Disp: , Rfl: , 08/02/2021 cholecalciferol, vitamin D3, (VITAMIN D3 ORAL), Take 125 mcg by mouth once daily., Disp: , Rfl: , 08/02/2021 ubidecarenone (ULTRA COQ10 ORAL), Take 50 mg by mouth once daily., Disp: , Rfl: , 07/29/2021 OTC NUTRITIONAL SUPPLEMENT, once daily. Tumeric 500 mg x2, Disp: , Rfl: , 08/02/2021 OTC NUTRITIONAL SUPPLEMENT, 500 mg once daily. Curcumin, Disp: , Rfl: , 08/02/2021 OTC PRODUCT, 350 mg once daily. Milk thistle, Disp: , Rfl: , 08/02/2021 OTC PRODUCT, 315 mg once daily. Green Tea, Disp: , Rfl: , 08/02/2021 CHROMIUM PICOLINATE ORAL, Take 800 mcg by mouth once daily., Disp: , Rfl: , 08/02/2021 selenium 200 mcg tablet, Take 1 tablet by mouth once daily., Disp: , Rfl: , 08/02/2021 Berb Sampson/herbal complex no.18 (BERBERINE-HERBAL COMB NO.18 ORAL), Take 1,000 mg by mouth twice daily., Disp: , Rfl: , 07/29/2021 MAGN (more content not included)...[id number] NoteHNO ID: [id number] Author: EUGENIE Baker Service: Care Management Author Type: Window Display Designer Type: Care Mgt Initial Assessment Filed: 08/17/2021 2:15 PM Note Text: CARE MANAGEMENT: ASSESSMENT AND DISCHARGE PLAN SERVICE DATE: August 17, 2021 SERVICE TIME: 2:10 PM PRIMARY CARE PHYSICIAN: Jose Ray DO ADMISSION STATUS: Inpatient Needs Prior to Discharge: To Be Determined;Accepting Facility;Bed Availability;Discharge Transportation [place] [facility] [facility] [place]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 Last discharge within 30 days: No Advance Directive: Current Advance Directive: None Kennel Supervisor Attempted to Assist with AD Completion: Yes Action: Education Provided;Patient Unwilling Health LiteracyHow often do you need to have someone help you when you read instructions, pamphlets, or other written material from your doctor or pharmacy? : 1 - Never How confident are you filling out medical forms by yourself?: 2 - Quite a bit If Patient scores > 3 on either question, the following interventions were put into place:: Patient did not score > 3 on either question. Baseline Mental Status Prior to this Illness what was the patient's Baseline Mental Status?: Alert AND Oriented Prior to this illness, has anyone described the patient having any of the following behaviors?: Not Applicable Relationship of the informant to the patient:: Self Functional Status: Independent Does Patient Currently Receive Any Community Services or Home Care?: None Equipment Prior to Admission: Cane;Walker;Elevated toilet seat;Hand held shower Has the Patient Been in a Retirement Facility in the Past 30 days?: No SOCIAL: Living Arrangements: Home Lives With: Alone Financial Resources: Disabled Primary Contact: Extended Emergency Contact Information Primary Emergency Contact: Dyllan Jimenez Mobile Relation: Father Supportive Patient Contact:: Yes Contact Resources: Family Family Name/Phone: Dyllan Barbara (Father): [phone] Caregiver AssessmentCaregiver is ready, willing and able to meet the patient's needs as recommended by the inter-professional team:: No Does the patient have an acute stroke diagnosis, or has the patient had a stroke during this admission?: No Patient's transition needs and plan for meeting these needs: SNF referrals placed per recommendation from Therapy. Patient's perception of need for this admission: Surgery Medication Adherance I am convinced of the importance of my prescription medication: 0 - Agree Completely I worry that my prescription medication will do more harm than good to me : 0 - Disagree Completely I feel financially burdened by my [id number] expenses for my prescription medication:: 0 - Disagree Completely Risk Score: 0 Patient is categorized as: Low risk < 2 Are you interested in bedside delivery of your medications? No Is Patient Psychosocially Complex?: No ASSESSMENT AND PLAN: Medical Needs: Medical Needs: Fall risk or frequent falls Psychosocial Needs: Psychosocial Needs: None FREEDOM OF CHOICE EXPLAINED: [place] of Choice Given: Yes Level of Care Discussed: Retirement Facility Financial Disclosure Provided: Yes Financial Disclosure Comments: [facility] Providers Provider List: Retirement Facility Provider list within the patient's requested geographic area shared with the patient/family: Yes within: 25 miles of zip code: [address] Quality and resource use metrics shared with the patient that are relevant to the patient's goals of care and treatment preferences:: Yes Metrics: Potentially Preventable 30-day Post Discharge Readmission Rates POTENTIAL TRANSITION PLANS Home;Retirement Facility/Intermediate Care Facility;To Be Determined SW met with pt at bedside to complete assessment. Pt lives alone in a 2 story house with 5 GUEVARA. Pt reports his bedroom is on the second floor, with a full bath available on the first floor. Pt has a straight cane, front wheeled walker, raised toilet seat, and hand held shower. Pt identified his parents as his support system. Pt's Therapists recommend SNF at this time. SW provided pt with a list of [facility] facilities in his area. Pt selected referrals be placed to: 1. [facility] and 2. [facility] [place]. MAIN sent referrals via [facility]. [facility] need [facility] for discharge transportation. Care Management will continue to follow. SIGNATURE: EUGENIE Baker PATIENT NAME: Mary Jimenez DATE: August 17, 2021 TIME: 2:10 PM PAGER/CONTACT #: [phone] NoteHNO ID: [id number] Author: Annie Coto APRN.SHEA Service: Neurosurgery Author Type: Nurse Practitioner Type: Progress Notes Filed: 08/17/2021 12:41 PM Note Text: NEUROSURGERY POST OP PROGRESS NOTE SERVICE DATE: 08/17/2021 SERVICE TIME: 0930 POST OP DAY: # 1, L5/S1 TLIF SUBJECTIVE Patient states that the preoperative symptoms of lower back, and leg pain are the same. Pain is mostly incisional. BLE weakness is the same. +flatus. Denies any new numbness, tingling. OBJECTIVE General: AANDOx 3. Incision: dressing CDI. Drain: output is 60 cc/shift. Lira: to gravity. Most recent labs and imaging results.. Current Facility-Administered Medications Medication Dose Route Frequency - amitriptyline 25 mg tab(s) (ELAVIL) 25 mg ORAL AT BEDTIME - doxazosin 4 mg tab(s) (CARDURA) 4 mg ORAL AT BEDTIME - pregabalin 100 mg cap(s) (LYRICA) 100 mg ORAL TID - atorvastatin 80 mg tab(s) (LIPITOR) 80 mg ORAL AT BEDTIME - metoprolol succinate ER 50 mg tab(s) (TOPROL XL) 50 mg ORAL DAILY - DULoxetine 30 mg cap(s) (CYMBALTA) 30 mg ORAL TID - NaCl 0.9% iv flush bag 20 mL INTRAVENOUS PRN - sodium chloride 0.9 % (flush) 3-5 mL (BD POSIFLUSH) 3-5 mL INTRAVENOUS q 12 H - lactated ringers iv infusion 75 mL/hr INTRAVENOUS CONTINUOUS - acetaminophen 325-650 mg tab(s) (TYLENOL) 325-650 mg ORAL q 4 H PRN - oxyCODONE-acetaminophen 5-325 mg 1-2 tablet (PERCOCET) 1-2 tablet ORAL q 6 H PRN - docusate sodium 100 mg cap(s) (COLACE) 100 mg ORAL BID - HYDROmorphone SHAPING MACHINE TENDER 0.5 mg/mL in NaCl 0.9% 100 mL INTRAVENOUS CONTINUOUS - valsartan 160 mg tab(s) (DIOVAN) 160 mg ORAL DAILY - finasteride 5 mg tab(s) (PROSCAR) 5 mg ORAL DAILY - ondansetron (PF) 4 mg injection (ZOFRAN) 4 mg INTRAVENOUS q 6 H PRN - benzocaine-menthol 1 Lozenge (CEPACOL) 1 Lozenge MUCOUS MEMBRANE (TOPICAL MOUTH AND THROAT) q 2 H PRN - polyethylene glycol 3350 17 g packet (MIRALAX, GLYCOLAX) 17 g ORAL DAILY ASSESSMENT AND PLAN Patient Active Hospital Problem List: Spondylolisthesis, lumbar region (08/16/2021) S/P lumbar fusion (08/17/2021) Medication and Non-Pharmacologic VTE Prophylaxis/Anticoagulants 08/16/21 170 vte pharmacologic prophylaxis contraindicated [place] 08/16/21 170 pneumatic compression stockings ([place] 08/16/21 170 activity - mobilize patient ([place]) VTE Prophylaxis: VTE prophylaxis appropriate Mary Jimenez is a 61 year old status post L5/S1 TLIF. Recommend increasing activity, physical therapy , occupational therapy, rehab consult, discharge planning and pain control. -PT rec SNF, CM to arrange -pain control adequate with SHAPING MACHINE TENDER, will attempt to transition to oral meds today -dc lira -plan post op XR tomorrow -start heparin tomorrow -bowel regimen Anticipate discharge in 2 days. *Discussed with Dr Steele SIGNATURE: Annie Coto APRN.CNP PATIENT NAME: Mary Jimenez DATE: August 17, 2021 TIME: 12:37 PM ETX#[id number] NoteHNO ID: [id number] Author: MARILOU Hobson Service: Anesthesiology Author Type: Director Private Type: Anesthesia Procedure Notes Filed: 08/16/2021 11:13 AM Note Text: ANESTHESIOLOGY PROCEDURE NOTE Airway General Information Procedure Start Time/Medication Administration: 08/16/2021 10:56 AM Patient location during procedure: OR Timeout Performed Pre-procedure: timeout performed Consent Obtained: Yes Patient identity confirmed: arm band and patient Staffing CAA: MARILOU Hobson Performed by: CAA and anesthesiologist Indications and Patient Condition Preoxygenated: yes Manual In-Line Stabilization: No Difficult Mask: No Indications for airway management: anesthesia anesthesia circuit Method: asleep Cricoid Pressure: No Airway Accessory: oral airway Final Airway Details Final airway type: endotracheal airway Final Endotracheal Airway: ETT Cuffed: yes Devices used: Glidescope Endotracheal tube insertion site: oral Blade: Nazanin Blade size: #4 ETT size (mm): 7.5 Measured from: lips Measurement (cm): 23 Placement verified by: chest auscultation and capnometry Number of attempts at approach: 1 SIGNATURE: MARILOU Hobson PATIENT NAME: Mary Jimenez DATE: August 16, 2021 TIME: 11:12 AM CSN: [id number] History of Past illness Narrative* Problem Noted Date Resolved Date Secondary hypertension 08/07/2021 2 Sacroiliitis 10/17/2015 08/18/2021 Pseudoarthrosis of lumbar spine 12/08/2014 08/18/2021 Opiate dependence 10/20/2014 08/18/2021 Headache(784.0) 07/18/2014 08/18/2021 Chronic daily headache 07/18/2014 2 Chronic back pain 07/18/2014 08/18/2021 Medication overuse headache 07/18/201407/31 documented as of this encounter (statuses as of 09/30/2021) [facility]02-09-2022 History of Past illness Narrative* Problem Noted Date Resolved Date Secondary hypertension 08/07/2021 2 Sacroiliitis 10/17/2015 08/18/2021 Pseudoarthrosis of lumbar spine 12/08/2014 08/18/2021 Opiate dependence 10/20/2014 08/18/2021 Headache(784.0) 07/18/2014 08/18/2021 Chronic daily headache 07/18/2014 2 Chronic back pain 07/18/2014 08/18/2021 Medication overuse headache 07/18/201407/31 documented as of this encounter (statuses as of 10/02/2021) [facility]2022 History of Past illness Narrative* Problem Noted Date Resolved Date Secondary hypertension 08/07/2021 2 Sacroiliitis 10/17/2015 08/18/2021 Pseudoarthrosis of lumbar spine 12/08/2014 08/18/2021 Opiate dependence 10/20/2014 08/18/2021 Headache(784.0) 07/18/2014 08/18/2021 Chronic daily headache 07/18/2014 2 Chronic back pain 07/18/2014 08/18/2021 Medication overuse headache 07/18/201407/31 documented as of this encounter (statuses as of 10/22/2021) [facility]2022 History of Past illness Narrative* Problem Noted Date Resolved Date Secondary hypertension 08/07/2021 2 Sacroiliitis 10/17/2015 08/18/2021 Pseudoarthrosis of lumbar spine 12/08/2014 08/18/2021 Opiate dependence 10/20/2014 08/18/2021 Headache(784.0) 07/18/2014 08/18/2021 Chronic daily headache 07/18/2014 2 Chronic back pain 07/18/2014 08/18/2021 Medication overuse headache 07/18/201407/31 documented as of this encounter (statuses as of 10/23/2021) [facility]2022 History of Past illness Narrative* Problem Noted Date Resolved Date Secondary hypertension 08/07/2021 2 Sacroiliitis 10/17/2015 08/18/2021 Pseudoarthrosis of lumbar spine 12/08/2014 08/18/2021 Opiate dependence 10/20/2014 08/18/2021 Headache(784.0) 07/18/2014 08/18/2021 Chronic daily headache 07/18/2014 2 Chronic back pain 07/18/2014 08/18/2021 Medication overuse headache 07/18/201407/31 documented as of this encounter (statuses as of 10/24/2021) [address]09-2022 History of Past illness Narrative* Problem Noted Date Resolved Date Secondary hypertension 08/07/2021 2 Sacroiliitis 10/17/2015 08/18/2021 Pseudoarthrosis of lumbar spine 12/08/2014 08/18/2021 Opiate dependence 10/20/2014 08/18/2021 Headache(784.0) 07/18/2014 08/18/2021 Chronic daily headache 07/18/2014 2 Chronic back pain 07/18/2014 08/18/2021 Medication overuse headache 07/18/201407/31 documented as of this encounter (statuses as of 11/04/2021) [facility]2022 History of Past illness Narrative* Problem Noted Date Resolved Date Secondary hypertension 08/07/2021 2 Sacroiliitis 10/17/2015 08/18/2021 Pseudoarthrosis of lumbar spine 12/08/2014 08/18/2021 Opiate dependence 10/20/2014 08/18/2021 Headache(784.0) 07/18/2014 08/18/2021 Chronic daily headache 07/18/2014 2 Chronic back pain 07/18/2014 08/18/2021 Medication overuse headache 07/18/201407/31 documented as of this encounter (statuses as of 11/07/2021) [facility]2022 History of Past illness Narrative* Problem Noted Date Resolved Date Secondary hypertension 08/07/2021 2 Sacroiliitis 10/17/2015 08/18/2021 Pseudoarthrosis of lumbar spine 12/08/2014 08/18/2021 Opiate dependence 10/20/2014 08/18/2021 Headache(784.0) 07/18/2014 08/18/2021 Chronic daily headache 07/18/2014 2 Chronic back pain 07/18/2014 08/18/2021 Medication overuse headache 07/18/201407/31 documented as of this encounter (statuses as of 12/05/2021) [facility]2022 History of Past illness Narrative* Problem Noted Date Resolved Date Secondary hypertension 08/07/2021 2 Sacroiliitis 10/17/2015 08/18/2021 Pseudoarthrosis of lumbar spine 12/08/2014 08/18/2021 Opiate dependence 10/20/2014 08/18/2021 Headache(784.0) 07/18/2014 08/18/2021 Chronic daily headache 07/18/2014 2 Chronic back pain 07/18/2014 08/18/2021 Medication overuse headache 07/18/201407/31 documented as of this encounter (statuses as of 12/06/2021) [facility]2022 History of Past illness Narrative* Problem Noted Date Resolved Date Secondary hypertension 08/07/2021 2 Sacroiliitis 10/17/2015 08/18/2021 Pseudoarthrosis of lumbar spine 12/08/2014 08/18/2021 Opiate dependence 10/20/2014 08/18/2021 Headache(784.0) 07/18/2014 08/18/2021 Chronic daily headache 07/18/2014 2 Chronic back pain 07/18/2014 08/18/2021 Medication overuse headache 07/18/201407/31 documented as of this encounter (statuses as of 12/17/2021) [facility]2022 History of Past illness Narrative* Problem Noted Date Resolved Date Secondary hypertension 08/07/2021 2 Sacroiliitis 10/17/2015 08/18/2021 Pseudoarthrosis of lumbar spine 12/08/2014 08/18/2021 Opiate dependence 10/20/2014 08/18/2021 Headache(784.0) 07/18/2014 08/18/2021 Chronic daily headache 07/18/2014 2 Chronic back pain 07/18/2014 08/18/2021 Medication overuse headache 07/18/201407/31 documented as of this encounter (statuses as of 12/19/2021) [facility]2022 History of Past illness Narrative* Problem Noted Date Resolved Date Secondary hypertension 08/07/2021 2 Sacroiliitis 10/17/2015 08/18/2021 Pseudoarthrosis of lumbar spine 12/08/2014 08/18/2021 Opiate dependence 10/20/2014 08/18/2021 Headache(784.0) 07/18/2014 08/18/2021 Chronic daily headache 07/18/2014 2 Chronic back pain 07/18/2014 08/18/2021 Medication overuse headache 07/18/201407/31 documented as of this encounter (statuses as of 12/31/2021) [facility]2022 History of Past illness Narrative* Problem Noted Date Resolved Date Secondary hypertension 08/07/2021 2 Sacroiliitis 10/17/2015 08/18/2021 Pseudoarthrosis of lumbar spine 12/08/2014 08/18/2021 Opiate dependence 10/20/2014 08/18/2021 Headache(784.0) 07/18/2014 08/18/2021 Chronic daily headache 07/18/2014 2 Chronic back pain 07/18/2014 08/18/2021 Medication overuse headache 07/18/201407/31 documented as of this encounter (statuses as of 12/31/2021) [facility]2022 History of Past illness Narrative* Problem Noted Date Resolved Date Secondary hypertension 08/07/2021 2 Sacroiliitis 10/17/2015 08/18/2021 Pseudoarthrosis of lumbar spine 12/08/2014 08/18/2021 Opiate dependence 10/20/2014 08/18/2021 Headache(784.0) 07/18/2014 08/18/2021 Chronic daily headache 07/18/2014 2 Chronic back pain 07/18/2014 08/18/2021 Medication overuse headache 07/18/201407/31 documented as of this encounter (statuses as of 01/07/2022) [facility]2022 History of Past illness Narrative* Problem Noted Date Resolved Date Secondary hypertension 08/07/2021 2 Sacroiliitis 10/17/2015 08/18/2021 Pseudoarthrosis of lumbar spine 12/08/2014 08/18/2021 Opiate dependence 10/20/2014 08/18/2021 Headache(784.0) 07/18/2014 08/18/2021 Chronic daily headache 07/18/2014 2 Chronic back pain 07/18/2014 08/18/2021 Medication overuse headache 07/18/201407/31 documented as of this encounter (statuses as of 01/16/2022) [facility]20[facility] History of Past illness Narrative* Problem Noted Date Resolved Date Secondary hypertension 08/07/2021 2 Sacroiliitis 10/17/2015 08/18/2021 Pseudoarthrosis of lumbar spine 12/08/2014 08/18/2021 Opiate dependence 10/20/2014 08/18/2021 Headache(784.0) 07/18/2014 08/18/2021 Chronic daily headache 07/18/2014 2 Chronic back pain 07/18/2014 08/18/2021 Medication overuse headache 07/18/201407/31 documented as of this encounter (statuses as of 01/31/2022) [facility]20[facility] History of Past illness Narrative* Problem Noted Date Resolved Date Secondary hypertension 08/07/2021 2 Sacroiliitis 10/17/2015 08/18/2021 Pseudoarthrosis of lumbar spine 12/08/2014 08/18/2021 Opiate dependence 10/20/2014 08/18/2021 Headache(784.0) 07/18/2014 08/18/2021 Chronic daily headache 07/18/2014 2 Chronic back pain 07/18/2014 08/18/2021 Medication overuse headache 07/18/201407/31 documented as of this encounter (statuses as of 02/04/2022) [facility]22 History of Past illness Narrative* Problem Noted Date Resolved Date Secondary hypertension 08/07/2021 2 Sacroiliitis 10/17/2015 08/18/2021 Pseudoarthrosis of lumbar spine 12/08/2014 08/18/2021 Opiate dependence 10/20/2014 08/18/2021 Headache(784.0) 07/18/2014 08/18/2021 Chronic daily headache 07/18/2014 2 Chronic back pain 07/18/2014 08/18/2021 Medication overuse headache 07/18/201407/31 documented as of this encounter (statuses as of 02/10/2022) [facility]20[facility] History of Past illness Narrative* Problem Noted Date Resolved Date Secondary hypertension 08/07/2021 2 Sacroiliitis 10/17/2015 08/18/2021 Pseudoarthrosis of lumbar spine 12/08/2014 08/18/2021 Opiate dependence 10/20/2014 08/18/2021 Headache(784.0) 07/18/2014 08/18/2021 Chronic daily headache 07/18/2014 2 Chronic back pain 07/18/2014 08/18/2021 Medication overuse headache 07/18/201407/31 documented as of this encounter (statuses as of 02/10/2022) [facility] History of Past illness Narrative* Problem Noted Date Resolved Date Secondary hypertension 08/07/2021 2 Sacroiliitis 10/17/2015 08/18/2021 Pseudoarthrosis of lumbar spine 12/08/2014 08/18/2021 Opiate dependence 10/20/2014 08/18/2021 Headache(784.0) 07/18/2014 08/18/2021 Chronic daily headache 07/18/2014 2 Chronic back pain 07/18/2014 08/18/2021 Medication overuse headache 07/18/201407/31 documented as of this encounter (statuses as of 02/13/2022) [facility] History of Past illness Narrative* Problem Noted Date Resolved Date Secondary hypertension 08/07/2021 2 Sacroiliitis 10/17/2015 08/18/2021 Pseudoarthrosis of lumbar spine 12/08/2014 08/18/2021 Opiate dependence 10/20/2014 08/18/2021 Headache(784.0) 07/18/2014 08/18/2021 Chronic daily headache 07/18/2014 2 Chronic back pain 07/18/2014 08/18/2021 Medication overuse headache 07/18/201407/31 documented as of this encounter (statuses as of 02/19/2022) [facility] History of Past illness Narrative* Problem Noted Date Resolved Date Secondary hypertension 08/07/2021 2 Sacroiliitis 10/17/2015 08/18/2021 Pseudoarthrosis of lumbar spine 12/08/2014 08/18/2021 Opiate dependence 10/20/2014 08/18/2021 Headache(784.0) 07/18/2014 08/18/2021 Chronic daily headache 07/18/2014 2 Chronic back pain 07/18/2014 08/18/2021 Medication overuse headache 07/18/201407/31 documented as of this encounter (statuses as of 02/20/2022) [facility] History of Past illness Narrative* Problem Noted Date Resolved Date Secondary hypertension 08/07/2021 2 Sacroiliitis 10/17/2015 08/18/2021 Pseudoarthrosis of lumbar spine 12/08/2014 08/18/2021 Opiate dependence 10/20/2014 08/18/2021 Headache(784.0) 07/18/2014 08/18/2021 Chronic daily headache 07/18/2014 2 Chronic back pain 07/18/2014 08/18/2021 Medication overuse headache 07/18/201407/31 documented as of this encounter (statuses as of 02/21/2022) [facility] History of Past illness Narrative* Problem Noted Date Resolved Date Secondary hypertension 08/07/2021 2 Sacroiliitis 10/17/2015 08/18/2021 Pseudoarthrosis of lumbar spine 12/08/2014 08/18/2021 Opiate dependence 10/20/2014 08/18/2021 Headache(784.0) 07/18/2014 08/18/2021 Chronic daily headache 07/18/2014 2 Chronic back pain 07/18/2014 08/18/2021 Medication overuse headache 07/18/201407/31 documented as of this encounter (statuses as of 02/24/2022) [address]09-2022 History of Past illness Narrative* Problem Noted Date Resolved Date Secondary hypertension 08/07/2021 2 Sacroiliitis 10/17/2015 08/18/2021 Pseudoarthrosis of lumbar spine 12/08/2014 08/18/2021 Opiate dependence 10/20/2014 08/18/2021 Headache(784.0) 07/18/2014 08/18/2021 Chronic daily headache 07/18/2014 2 Chronic back pain 07/18/2014 08/18/2021 Medication overuse headache 07/18/201407/31 documented as of this encounter (statuses as of 02/27/2022) [facility] History of Past illness Narrative* Problem Noted Date Resolved Date Secondary hypertension 08/07/2021 2 Sacroiliitis 10/17/2015 08/18/2021 Pseudoarthrosis of lumbar spine 12/08/2014 08/18/2021 Opiate dependence 10/20/2014 08/18/2021 Headache(784.0) 07/18/2014 08/18/2021 Chronic daily headache 07/18/2014 2 Chronic back pain 07/18/2014 08/18/2021 Medication overuse headache 07/18/201407/31 documented as of this encounter (statuses as of 03/06/2022) [facility] History of Past illness Narrative* Problem Noted Date Resolved Date Secondary hypertension 08/07/2021 2 Sacroiliitis 10/17/2015 08/18/2021 Pseudoarthrosis of lumbar spine 12/08/2014 08/18/2021 Opiate dependence 10/20/2014 08/18/2021 Headache(784.0) 07/18/2014 08/18/2021 Chronic daily headache 07/18/2014 2 Chronic back pain 07/18/2014 08/18/2021 Medication overuse headache 07/18/201407/31 documented as of this encounter (statuses as of 03/07/2022) [facility] History of Past illness Narrative* Problem Noted Date Resolved Date Secondary hypertension 08/07/2021 2 Sacroiliitis 10/17/2015 08/18/2021 Pseudoarthrosis of lumbar spine 12/08/2014 08/18/2021 Opiate dependence 10/20/2014 08/18/2021 Headache(784.0) 07/18/2014 08/18/2021 Chronic daily headache 07/18/2014 2 Chronic back pain 07/18/2014 08/18/2021 Medication overuse headache 07/18/201407/31 documented as of this encounter (statuses as of 03/12/2022) [facility] History of Past illness Narrative* Problem Noted Date Resolved Date Secondary hypertension 08/07/2021 2 Sacroiliitis 10/17/2015 08/18/2021 Pseudoarthrosis of lumbar spine 12/08/2014 08/18/2021 Opiate dependence 10/20/2014 08/18/2021 Headache(784.0) 07/18/2014 08/18/2021 Chronic daily headache 07/18/2014 2 Chronic back pain 07/18/2014 08/18/2021 Medication overuse headache 07/18/201407/31 documented as of this encounter (statuses as of 03/13/2022) [facility] History of Past illness Narrative* Problem Noted Date Resolved Date Secondary hypertension 08/07/2021 2 Sacroiliitis 10/17/2015 08/18/2021 Pseudoarthrosis of lumbar spine 12/08/2014 08/18/2021 Opiate dependence 10/20/2014 08/18/2021 Headache(784.0) 07/18/2014 08/18/2021 Chronic daily headache 07/18/2014 2 Chronic back pain 07/18/2014 08/18/2021 Medication overuse headache 07/18/201407/31 documented as of this encounter (statuses as of 03/13/2022) [facility] History of Past illness Narrative* Problem Noted Date Resolved Date Secondary hypertension 08/07/2021 2 Sacroiliitis 10/17/2015 08/18/2021 Pseudoarthrosis of lumbar spine 12/08/2014 08/18/2021 Opiate dependence 10/20/2014 08/18/2021 Headache(784.0) 07/18/2014 08/18/2021 Chronic daily headache 07/18/2014 2 Chronic back pain 07/18/2014 08/18/2021 Medication overuse headache 07/18/201407/31 documented as of this encounter (statuses as of 03/21/2022) [facility] History of Past illness Narrative* Problem Noted Date Resolved Date Secondary hypertension 08/07/2021 2 Sacroiliitis 10/17/2015 08/18/2021 Pseudoarthrosis of lumbar spine 12/08/2014 08/18/2021 Opiate dependence 10/20/2014 08/18/2021 Headache(784.0) 07/18/2014 08/18/2021 Chronic daily headache 07/18/2014 2 Chronic back pain 07/18/2014 08/18/2021 Medication overuse headache 07/18/201407/31 documented as of this encounter (statuses as of 04/01/2022) [facility] History of Past illness Narrative* Problem Noted Date Resolved Date Secondary hypertension 08/07/2021 2 Sacroiliitis 10/17/2015 08/18/2021 Pseudoarthrosis of lumbar spine 12/08/2014 08/18/2021 Opiate dependence 10/20/2014 08/18/2021 Headache(784.0) 07/18/2014 08/18/2021 Chronic daily headache 07/18/2014 2 Chronic back pain 07/18/2014 08/18/2021 Medication overuse headache 07/18/201407/31 documented as of this encounter (statuses as of 04/01/2022) [facility] History of Past illness Narrative* Problem Noted Date Resolved Date Secondary hypertension 08/07/2021 2 Sacroiliitis 10/17/2015 08/18/2021 Pseudoarthrosis of lumbar spine 12/08/2014 08/18/2021 Opiate dependence 10/20/2014 08/18/2021 Headache(784.0) 07/18/2014 08/18/2021 Chronic daily headache 07/18/2014 2 Chronic back pain 07/18/2014 08/18/2021 Medication overuse headache 07/18/201407/31 documented as of this encounter (statuses as of 04/09/2022) [facility] History of Past illness Narrative* Problem Noted Date Resolved Date Secondary hypertension 08/07/2021 2 Sacroiliitis 10/17/2015 08/18/2021 Pseudoarthrosis of lumbar spine 12/08/2014 08/18/2021 Opiate dependence 10/20/2014 08/18/2021 Headache(784.0) 07/18/2014 08/18/2021 Chronic daily headache 07/18/2014 2 Chronic back pain 07/18/2014 08/18/2021 Medication overuse headache 07/18/201407/31 documented as of this encounter (statuses as of 04/14/2022) [facility] History of Past illness Narrative* Problem Noted Date Resolved Date Secondary hypertension 08/07/2021 2 Sacroiliitis 10/17/2015 08/18/2021 Pseudoarthrosis of lumbar spine 12/08/2014 08/18/2021 Opiate dependence 10/20/2014 08/18/2021 Headache(784.0) 07/18/2014 08/18/2021 Chronic daily headache 07/18/2014 2 Chronic back pain 07/18/2014 08/18/2021 Medication overuse headache 07/18/201407/31 documented as of this encounter (statuses as of 04/16/2022) [facility]02-09-2022 History of Past illness Narrative* Problem Noted Date Resolved Date Secondary hypertension 08/07/2021 2 Sacroiliitis 10/17/2015 08/18/2021 Pseudoarthrosis of lumbar spine 12/08/2014 08/18/2021 Opiate dependence 10/20/2014 08/18/2021 Headache(784.0) 07/18/2014 08/18/2021 Chronic daily headache 07/18/2014 2 Chronic back pain 07/18/2014 08/18/2021 Medication overuse headache 07/18/201407/31 documented as of this encounter (statuses as of 04/17/2022) [facility]-09-2022 History of Past illness Narrative* Problem Noted Date Resolved Date Secondary hypertension 08/07/2021 2 Sacroiliitis 10/17/2015 08/18/2021 Pseudoarthrosis of lumbar spine 12/08/2014 08/18/2021 Opiate dependence 10/20/2014 08/18/2021 Headache(784.0) 07/18/2014 08/18/2021 Chronic daily headache 07/18/2014 2 Chronic back pain 07/18/2014 08/18/2021 Medication overuse headache 07/18/201407/31 documented as of this encounter (statuses as of 04/24/2022) [facility]-09-2022 History of Past illness Narrative* Problem Noted Date Resolved Date Secondary hypertension 08/07/2021 2 Sacroiliitis 10/17/2015 08/18/2021 Pseudoarthrosis of lumbar spine 12/08/2014 08/18/2021 Opiate dependence 10/20/2014 08/18/2021 Headache(784.0) 07/18/2014 08/18/2021 Chronic daily headache 07/18/2014 2 Chronic back pain 07/18/2014 08/18/2021 Medication overuse headache 07/18/201407/31 documented as of this encounter (statuses as of 04/25/2022) [facility]2022 History of Past illness Narrative* Problem Noted Date Resolved Date Secondary hypertension 08/07/2021 2 Sacroiliitis 10/17/2015 08/18/2021 Pseudoarthrosis of lumbar spine 12/08/2014 08/18/2021 Opiate dependence 10/20/2014 08/18/2021 Headache(784.0) 07/18/2014 08/18/2021 Chronic daily headache 07/18/2014 2 Chronic back pain 07/18/2014 08/18/2021 Medication overuse headache 07/18/201407/31 documented as of this encounter (statuses as of 04/29/2022) [facility]-09-2022 History of Past illness Narrative* Problem Noted Date Resolved Date Secondary hypertension 08/07/2021 2 Sacroiliitis 10/17/2015 08/18/2021 Pseudoarthrosis of lumbar spine 12/08/2014 08/18/2021 Opiate dependence 10/20/2014 08/18/2021 Headache(784.0) 07/18/2014 08/18/2021 Chronic daily headache 07/18/2014 2 Chronic back pain 07/18/2014 08/18/2021 Medication overuse headache 07/18/201407/31 documented as of this encounter (statuses as of 05/09/2022) [facility]2022 History of Past illness Narrative* Problem Noted Date Resolved Date Secondary hypertension 08/07/2021 2 Sacroiliitis 10/17/2015 08/18/2021 Pseudoarthrosis of lumbar spine 12/08/2014 08/18/2021 Opiate dependence 10/20/2014 08/18/2021 Headache(784.0) 07/18/2014 08/18/2021 Chronic daily headache 07/18/2014 2 Chronic back pain 07/18/2014 08/18/2021 Medication overuse headache 07/18/201407/31 documented as of this encounter (statuses as of 06/12/2022) [facility]20[facility] History of Past illness Narrative* Problem Noted Date Resolved Date Secondary hypertension 08/07/2021 2 Sacroiliitis 10/17/2015 08/18/2021 Pseudoarthrosis of lumbar spine 12/08/2014 08/18/2021 Opiate dependence 10/20/2014 08/18/2021 Headache(784.0) 07/18/2014 08/18/2021 Chronic daily headache 07/18/2014 2 Chronic back pain 07/18/2014 08/18/2021 Medication overuse headache 07/18/201407/31 documented as of this encounter (statuses as of 07/04/2022) [facility] History of Past illness Narrative* Problem Noted Date Resolved Date Secondary hypertension 08/07/2021 2 Sacroiliitis 10/17/2015 08/18/2021 Pseudoarthrosis of lumbar spine 12/08/2014 08/18/2021 Opiate dependence 10/20/2014 08/18/2021 Headache(784.0) 07/18/2014 08/18/2021 Chronic daily headache 07/18/2014 Chronic back pain 07/18/2014 08/18/2021 Medication overuse headache 07/18/201407/31 documented as of this encounter (statuses as of 07/04/2022) [facility]01-25-2022 Evaluation note* Encounter Date Diagnosis Assessment Notes Treatment Notes Treatment Clinical Notes Jun, Chronic rhinitis (ICD-10 - J31.0) His chronic rhinitis is multifactorial. We strongly stressed the nasal decongestant addictive part and he again has to simply stop cold turkey. He is already on Flonase nasal spray twice daily and he will continue that, can also add saline nasal spray. Once he gets off the nasal decongestant we will see what is left over. We discussed we would consider sinus CT scan followed by ENT referral and repeat allergy referral for testing and to consider shots. Because he has back surgery pending, he wants to put that on the back burner and we will discuss in the future. Jun, Adverse effect of other orck-yrssko-amsg drugs, initial encounter (ICD-10 - T48.5X5A) See dictation above Jun, Essential (primary) hypertension (ICD-10 - I10) Stable on current meds Jun, P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) Continue with Dr. Ochoa of pain management and [facility] surgery with lumbar surgical revision pending. He did asked me if I would give him another round of steroids. I told him I am reluctant to do so too often and especially with his pending surgery. Jun, Lumbar back pain with radiculopathy affecting left lower extremity (ICD-10 - M54.16) See dictation above Jun, Chronic pain (ICD-10 - G89.29) See dictation above Jun, Mixed hyperlipidemia (ICD-10 - E78.2) Stable, appropriate statin dose Jun, Stroke (ICD-10 - I63.9) Stable optimal baseline Jun, Obstructive sleep apnea (ICD-10 - G47.33) Continue CPAP, sleep clinic in Jun, Functional dyspepsia (ICD-10 - K30) Stable on omeprazole Jun, Adjustment disorder with mixed anxiety and depressed mood (ICD-10 - F43.23) Stable on Remeron likely optimal baseline Jun, Migraine without status migrainosus, not intractable, unspecified migraine type (ICD-10 - G43.909) He states doing well with Botox. Continue with [facility]. Jun, Impaired glucose tolerance (ICD-10 - R73.02) We discussed his hemoglobin A1c is higher likely secondary to his weight gain. Healthy diet and weight encouraged. Risk of diabetes discussed. Jun, Morbid obesity (ICD-10 - E66.01) We discussed his weight at length. He perhaps would be a candidate for bariatric surgery because of his significant obesity with multiple comorbidities. Discussed no one does the surgery local. I did offer to refer him to a [facility] for bariatric consult. At this point he wants to put that on the back burner. He has back pain surgery coming up as above. We also discussed diet at length. I told him that in general I am in favor of what ever helps him lose weight. Discussed the packaged diets are effective because they simply control caloric intake but they can be expensive. We also discussed the NOOM diet which he had questions about and I again told him I am in favor of what ever helps him lose weight. Jun, Encounter for long-term (current) use of medications (ICD-10 - Z79.899) Jun, Nausea (ICD-10 - R11.0) Jun, Other Metoprolol material was published RTO 6 months preceded by fasting CBC, BMP, hepatic panel, lipid profile, hemoglobin A1c and sooner as needed. I repeated full lab panel because of his medical complexity. [facility] Other 01-13-2022 Evaluation note* Encounter Date Diagnosis Assessment Notes Treatment Notes Treatment Clinical Notes Jun, Acute non-recurrent sinusitis, unspecified location (ICD-10 - J01.90) [facility] Other 12-30-2021 Evaluation note* Encounter Date Diagnosis Assessment Notes Treatment Notes Treatment Clinical Notes May, Acute non-recurrent sinusitis, unspecified location (ICD-10 - J01.90) He does have chronic rhinitis, could have a seasonal allergy flare. However because he has 3 weeks of purulent nasal drainage, discussed also could be infectious. Bactrim DS as prescribed. Continue routine chronic rhinitis medications. May, Intermittent right lower quadrant abdominal pain (ICD-10 - R10.31) Especially based on today's exam, I think this is musculoskeletal. Discussed he could have an abdominal wall muscle tear or sports hernia. I suggested sports medicine referral. He declined. All he really wanted to know today is whether I think it is safe for him to resume working out. Discussed I do not know whether resuming the gym will worsen this. I think as long as he is using commonsense and avoiding painful exercises, it is okay to try. If he does not do well or if he decides he would like referral as above, call. May, Other Trimethoprim material was published RTO as needed [facility] Other 11-12-2021 Evaluation note* Encounter Date Diagnosis Assessment Notes Treatment Notes Treatment Clinical Notes Apr, Chronic pain (ICD-10 - G89.29) [facility] Other 11-11-2021 Evaluation note* Encounter Date Diagnosis Assessment Notes Treatment Notes Treatment Clinical Notes Apr, Right inguinal pain (ICD-10 - R10.31) His exam is complicated by his obesity. We do consider right inguinal hernia but I do not feel 1. Discussed this also simply could be abdominal wall muscle strain or inguinal ligament strain. Because of his complexity and degree of pain, refer back to Dr. Arango for surgical consult. Worrisome symptoms or reason for emergency room discussed. Resting on his back, ice and/or heat as needed pain encouraged. Apr, Left lower quadrant pain (ICD-10 - R10.32) I will await Dr. Arango input about his right lower quadrant pain and his thoughts about his ongoing left inguinal pain. We did discuss we would consider sports medicine consult for his chronic left abdominal pain or pain management referral to consider a nerve block. We will put that on the back burner pending Dr. Arango thoughts. Apr, Other chronic pain (ICD-10 - G89.29) Apr, Lumbar back pain with radiculopathy affecting left lower extremity (ICD-10 - M54.16) Continue with [facility] back surgeon and pending follow-up visit Apr, Abdominal mass, right lower quadrant (ICD-10 - R19.03) I think this is most likely asymmetric significant fat pannus right lower abdomen. We consider lipoma. He did have CT scan last May. We will await Dr. Arango input. Apr, Other RTO pending above and sooner as needed Please send today's EMR note to Dr. Arango. [facility] Other 01-19-2021 History of Present illness Narrative* Patient is here for follow-up continue management for hypertension and episode of chest pain. He has not been seen in almost 2 years. He report over the last couple of years he had total of 3 back surgery and laminectomies. He described chronic back pain. He admits to limited exercise tolerance. Hehas been having complaint of retrosternal chest discomfort with activity described as pressure. He did have a stress test 2 years ago which was negative. He admits to very limited exercise tolerance. * ASSESSMENT: * 1. Episode of chest pain suspicious of angina. Last stress test 2 years ago was negative * 2. Hypertension, well controlled. * 3. Obesity with significant weight gain * 4. Previous history of stroke with expressive aphasia has improved. * 5. Hyperlipidemia * 6. Chronic back pain with multiple back surgeries * RECOMMENDATIONS * : * 1. I asked that the patient empirical therapy with Imdur 30 mg once daily and use nitroglycerin as needed. I educated him about ischemic heart disease and advised him to the hospital if he had recurrence of his chest pain * 2. The patient was counseled regarding losing weight, exercise, and risk factor adjustment. * 3. Back in 2 to 3 months if continues to have symptoms of angina will consider cardiac catheterization * 4. 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 Haskins, [facility] Vaccinated for COVID-19?: Yes Medical History (Updated 05/03/22 @ 20:36 by Jessica Borrego, TONY) CVA (cerebral vascular accident) Hypertension Morbid obesity Obstructive sleep apnea 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, bilateral Surgical History Hx of total knee replacement Previous back surgery Family History Other Hypertension Social History Smoking Status: Current every day smoker Substance Use Type: None Meds Medications and Allergies Allergies Penicillins Allergy (Severe, Verified 05/03/22 15:09) Anaphylaxis latex Allergy (Verified 05/03/22 15:09) Unknown Reaction Home Medications atorvastatin 80 mg tablet 1 tab PO QHS 03/30/17 [History Confirmed 05/03/22] baclofen 20 mg tablet 20 mg PO BID 03/30/17 [History Confirmed 05/03/22] biotin 10,000 mcg capsule 1 tab PO QHS 03/30/17 [History Confirmed 05/03/22] clopidogrel 75 mg tablet 1 tab PO DAILY 03/30/17 [History Confirmed 05/03/22] doxazosin 4 mg tablet 4 mg PO DAILY 03/30/17 [History Confirmed 05/03/22] duloxetine 60 mg capsule,delayed release (Cymbalta) 30 mg PO TID 03/30/17 [History Confirmed 05/04/22] finasteride 5 mg tablet 5 mg PO DAILY 03/30/17 [History Confirmed 05/03/22] fluticasone propionate 50 mcg/actuation nasal spray,suspension (Flonase Allergy Relief) 2 spray intranasal DAILY 03/30/17 [History Confirmed 05/03/22] furosemide 40 mg tablet 1 tab PO DAILY 03/30/17 [History Confirmed 05/03/22] metoprolol tartrate 50 mg tablet 50 mg PO DAILY 03/30/17 [History Confirmed 05/03/22] tngspokf-cwcakwuz-xyrvf acid 400 mcg-vit K 20 mcg-lycop 300 mcg tablet (One-A-Day Men's Multivitamin) 1 tab PO DAILY 03/30/17 [History Confirmed 05/03/22] potassium chloride 20 mEq tablet,extended release(part/cryst) (Klor-Con M) 1 tabPO DAILY 03/30/17 [History Confirmed 05/03/22] telmisartan 80 mg tablet (Micardis) 80 mg PO DAILY 03/30/17 [History Confirmed 05/03/22] testosterone cypionate 200 mg/mL intramuscular kit 150 mg IM Q2W 03/30/17 [History Confirmed 05/03/22] valacyclovir 500 mg tablet (Valtrex) 500 mg PO DIRECTED PRN Outbreak 03/30/17[History Confirmed 05/03/22] dicyclomine 20 mg tablet 20 mg PO QID 07/14/18 [History Confirmed 05/03/22] prasterone (dhea)-calcium carbonate 10 mg-47 mg calcium tablet (DHEA) 10 tab PO DAILY 07/14/18 [History Confirmed 05/03/22] promethazine 12.5 mg tablet 25 mg PO DAILY 07/14/18 [History Confirmed 05/03/22] mirtazapine 30 mg tablet 30 mg PO DAILY 09/11/21 [History Confirmed 05/03/22] nortriptyline 50 mg capsule 50 mg PO DAILY 09/11/21 [History Confirmed 05/03/22] omeprazole 40 mg capsule,delayed release 40 mg PO DAILY 09/11/21 [History Confirmed 05/03/22] pregabalin 100 mg capsule 200 mg PO 3XD 09/11/21 [History Confirmed 05/03/22] acetaminophen 500 mg tablet 1,000 mg PO Q6H PRN Pain 05/03/22 [History Confirmed 05/03/22] ibuprofen 800 mg tablet 800 mg PO TID 05/03/22 [History Confirmed 05/03/22] Exam Physical Exam Vital Signs: Temp Pulse Resp BP Pulse Ox O2 Del Method 97.5 F L 66 18 171/84 H 96 Room Air 05/04/22 08:00 05/04/22 08:00 05/04/22 08:00 05/04/22 08:00 05/04/22 08:00 05/04/22 08:00 Results Laboratory Findings CBC and BMP: 05/03/22 14:46 05/04/22 04:32 Diagnostic Findings Imaging/Impressions: ITS Impressions Head CT 05/03/22 14:43 IMPRESSION: No acute intracranial findings. Preliminary findings given at 3:00 PM 05/03/2022 Impression dictated by: Eagle Prince M.D.05/03/2022 3:33 PM Dictation Location: [place] [address] Chest X-Ray 05/03/22 14:44 IMPRESSION: No acute process. Impression dictated by: Eagle Prince M.D.05/03/2022 3:05 PM Dictation Location: [place] [address] Assessment/Plan (1) Atypical migraine: Assessment/Problem Details: HPI: 61-year-old man with history of stroke, hypertension, sleep apnea. Presented tot emergency department on May 03, 2022 for slurred speech that started about 6 hours prior. His ex- who was here initially said the slurring seem to come and go. He had a fall prior to this starting he was he felt like his legs got weak and gave out. A second fall after the slurred speech and already started due to the same issue. ER staff noticed he was stuttering. History of lumbosacral spondylosis and sciatica symptoms and chronic back pain. He denied a room spinning sensation. He said he did feel lightheaded. Intermittent blurred vision for the past week. EXAMINATION: Well-kempt. No distress. No deformities or trauma. Normal spinal curvature. Limbs seem well-perfused. No significant edema. Normal work of breathing. Visualized skin is generally intact and without lesions. Affect normal. Patient is alert and generally oriented. Attention normal. Speech is fluent andnondysarthric. Pupils are equal and reactive Ocular motility is full. No nystagmus. Facial sensation is normal. Hearing is normal. Facial strength is normal. Tongue is midline. Muscle bulk normal. Muscle tone seems normal. Diffuse weakness, +4/5, throughout bilateral lower extremities. No visualized asterixis. Reflexes normal in upper extremities and essentially absent in lowerextremities. No pathologic reflexes. Light touch and vibratory sensation decreased in distal left lower extremity more so than right distal lower extremity. No limb ataxia. ASSESSMENT: Fluctuating leg weakness most likely related to leg symptoms that stem from chronic lumbar stenosis and radiculopathy. He had fluctuating presyncopal sensations with this that may have represented orthostatic hypotension. Also with fluctuating dysarthria which may have also been manifestations of his presyncope. His only lingering symptoms are leg weakness and back pain. Fairly low suspicion for TIA but we can treat for that accordingly given his history of cerebrovascular disease. 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 PLAN: 1. MRI lumbar spine with and without contrast (surgery early 2021) 2. Consider neurosurgical evaluation based on the lumbar images 3. Orthostatic vital signs (currently he is unable to stand long enough to do them) 4. Medications that might make him presyncopal include the doxazosin, furosemide, and metoprolol 5. Considerable risk for serotonin syndrome with the nortriptyline, duloxetine,and pregabalin 6. Medications that might cause fluctuating weakness or slurred speech: Baclofen, Lyrica (200 mg 3 times daily with an eGFR of 41) 7. Home medications already include clopidogrel 75 mg daily and atorvastatin 80mg daily. In case any of his symptoms represented threatened cerebrovascular disease (TIA), take aspirin 81 mg daily temporarily for 30 days with his other medications. Code(s): G43.009 - Migraine without aura, not intractable, without status migrainosus Status: Acute (2) Sepsis: Code(s): A41.9 - Sepsis, unspecified organism Status: Acute Documented By: Ortega Haskins DO 05/04/22 0949 Signed By: <Electronically signed by Ortega Haskins DO> 05/04/22 [id number] [facility] Work Phone: Consult note Author Xavi Smith [facility] May 07, 2022 12:29pm Note Date/Time May 06, 2022 2 :10pm [facility] [address] [place] [address] Pain Management Consult Note Signed Patient: Mary Jimenez MR#: [id number] : 1960 Acct:[id number] Age/Sex: 61 / M Adm Date: 2 Loc: 4N Room: [address] [place] [address] Type: DIS INOo Attending Dr: Cathy Zavala MD Copies to: DO Cathy Bhatia MD Sherif S Zaky, MD~ HPI Data of Consult Consult date: 05/06/22 Primary Care Provider: Jose Ray DO Consult Narrative Reason for consult: Low back and lower extremity pain Chief complaint: Low back and bilateral lower extremity pain History of present illness: Mr. Jimenez is a 61 year old male who was recently admitted to the hospital with sluured speech with concerns of stroke vs TIA. Pain neurologic symptoms has improved and did not require thrombolytic therapy. Patient continued to complainof low back pain that radiates to bilateral lower extremities. Patient has a long standing history of low back pain and bilateral lower extremity pain s/p multiple back surgeries. Patient used to see Dr Ochoa for pain management and currently sees a Pain management doctor in [place]. Pain management was consultedto evaluate for interventional options. 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, bilateral Postlaminectomy syndrome Surgical History Hx of total knee replacement Previous back surgery Family History Other Hypertension Social History Smoking Status: Current every day smoker Substance Use Type: None Meds Medications and Allergies Allergies Penicillins Allergy (Severe, Verified 05/03/22 15:09) Anaphylaxis latex Allergy (Verified 05/03/22 15:09) Unknown Reaction Home Medications atorvastatin 80 mg tablet 1 tab PO QHS 03/30/17 [History Confirmed 05/03/22] baclofen 20 mg tablet 20 mg PO BID 03/30/17 [History Confirmed 05/03/22] biotin 10,000 mcg capsule 1 tab PO QHS 03/30/17 [History Confirmed 05/03/22] clopidogrel 75 mg tablet 1 tab PO DAILY 03/30/17 [History Confirmed 05/03/22] doxazosin 4 mg tablet 4 mg PO DAILY 03/30/17 [History Confirmed 05/03/22] duloxetine 60 mg capsule,delayed release (Cymbalta) 30 mg PO TID 03/30/17 [History Confirmed 05/04/22] finasteride 5 mg tablet 5 mg PO DAILY 03/30/17 [History Confirmed 05/03/22] fluticasone propionate 50 mcg/actuation nasal spray,suspension (Flonase Allergy Relief) 2 spray intranasal DAILY 03/30/17 [History Confirmed 05/03/22] furosemide 40 mg tablet 1 tab PO DAILY 03/30/17 [History Confirmed 05/03/22] metoprolol tartrate 50 mg tablet 50 mg PO DAILY 03/30/17 [History Confirmed 05/03/22] tpiiboys-rhgmjwqz-ubemg acid 400 mcg-vit K 20 mcg-lycop 300 mcg tablet (One-A-Day Men's Multivitamin) 1 tab PO DAILY 03/30/17 [History Confirmed 05/03/22] potassium chloride 20 mEq tablet,extended release(part/cryst) (Klor-Con M) 1 tabPO DAILY 03/30/17 [History Confirmed 05/03/22] telmisartan 80 mg tablet (Micardis) 80 mg PO DAILY 03/30/17 [History Confirmed 05/03/22] testosterone cypionate 200 mg/mL intramuscular kit 150 mg IM Q2W 03/30/17 [History Confirmed 05/03/22] valacyclovir 500 mg tablet (Valtrex) 500 mg PO DIRECTED PRN Outbreak 03/30/17[History Confirmed 05/03/22] dicyclomine 20 mg tablet 20 mg PO QID 07/14/18 [History Confirmed 05/03/22] prasterone (dhea)-calcium carbonate 10 mg-47 mg calcium tablet (DHEA) 10 tab PO DAILY 07/14/18 [History Confirmed 05/03/22] promethazine 12.5 mg tablet 25 mg PO DAILY 07/14/18 [History Confirmed 05/03/22] mirtazapine 30 mg tablet 30 mg PO DAILY 09/11/21 [History Confirmed 05/03/22] nortriptyline 50 mg capsule 50 mg PO DAILY 09/11/21 [History Confirmed 05/03/22] omeprazole 40 mg capsule,delayed release 40 mg PO DAILY 09/11/21 [History Confirmed 05/03/22] pregabalin 100 mg capsule 200 mg PO 3XD 09/11/21 [History Confirmed 05/03/22] acetaminophen 500 mg tablet 1,000 mg PO Q6H PRN Pain 05/03/22 [History Confirmed 05/03/22] aspirin 81 mg tablet,delayed release 81 mg PO DAILY 30 days #30 tabs 05/06/22 [Rx] hydrocodone 5 mg-acetaminophen 325 mg tablet 1 tab PO Q6HR PRN Pain 3 days #12 tabs 05/06/22 [Rx] Exam Physical Exam Vital Signs: Temp Pulse Resp BP Pulse Ox O2 Del Method 97.9 F 79 18 131/80 93 L Room Air 05/06/22 12:00 05/06/22 12:00 05/06/22 12:00 05/06/22 12:00 05/06/22 12:00 05/06/22 12:00 Const General: cooperative, no acute distress and well developed HEENT Head: normal to inspection Eyes General: appearance normal, both eyes and all related structures Neck Neck: normal visual inspection Resp Effort & Inspection: normal respiratory effort Cardio Jugular venous pressure: no JVD Musc Thoracic/Lumbar Spine: thoracic and lumbar spine normal to inspection and surgical scar(s) present Skin General: no rashes or lesions noted Wounds: no wounds Neuro General: patient alert, patient awake and patient oriented x3 Additional Findings Additional Findings: Mild lumbar paraspinal tenderness SLR negative bilaterally Results Vital Signs Vital Signs: Temp 97.9 F 05/06/22 12:00 Pulse 79 05/06/22 12:00 Resp 18 05/06/22 12:00 BP 131/80 05/06/22 12:00 Pulse Ox 93 L 05/06/22 12:00 O2 Del Method Room Air 05/06/22 12:00 Pain Generalized Lower Back: Pain Description: Constant Pain Intensity: 8 Right Leg: Pain Description: Aching Pain Intensity: 3 Labs CBC & Chem 7: 05/03/22 14:46 05/04/22 04:32 Assessment/Plan (1) Postlaminectomy syndrome: Plan: I reviewed patient recent xrays that shows multilevel fusion with hardware from L3-S1. Patient is scheduled to have MRI this after noon. I discussed with the patient his chronic pain condition which is consistent with postlaminectomy syndrome. Patient used to get injections as outpatient from pain management with good relief. Patient is on plavix and he had it today. This prohibits interventional treatment for 7 days. Based on his MRI he might be a candidate for caudal epidural injection as outpatient. discussed with the patient that he can get this through his pain management doctor. Code(s): M96.1 - Postlaminectomy syndrome, not elsewhere classified Status: Acute (2) Atypical migraine: Code(s): G43.009 - Migraine without aura, not intractable, without status migrainosus Status: Acute (3) Sepsis: Code(s): A41.9 - Sepsis, unspecified organism Status: Acute Documented By: Xavi Smith MD 05/06/22 1406 Signed By: <Electronically signed by Xavi Smith MD> 05/07/22 1229 [facility] Work Phone: Discharge summary Author Cathy Zavala [facility] May 06, 2022 3:14pm Note Date/Time May 06, 2022 3 :05pm [facility] [address] [place] [address] Discharge Summary Signed Patient: Mary Jimenez MR#: [id number] : 1960 Acct:[id number] Age/Sex: 61 / M Adm Date: 2 Loc: Room: [address] [place] [address]: Cathy Zavala MD Copies to: DO Cathy Bhatia MD~ Providers Date of Discharge: 05/06/22 Discharging Provider: Cathy Zavala Primary Care Provider: Jose Ray Consults: 05/03/22 18:54 Consult to Neurology Routine Consult to Occupational Therapy Routine Consult to Physical Therapy Routine 05/06/22 09:41 Consult to Pain Management Routine 05/06/22 09:59 RICHAR [[facility] Transition of Care Referral] Routine Discharge Diagnosis (1) Postlaminectomy syndrome: (2) Atypical migraine: (3) Obstructive sleep apnea: (4) Dizziness: (5) Repeated falls: (6) Slurred speech: (7) Chronic kidney disease, stage 3: (8) Lumbar radicular pain: Final Diagnosis Final Discharge Diagnosis: As above Summary Hospital Course Hospital course: Patient with multiple medical comorbidities presented to ER with complaint of slurring speech and dizziness. He was kept in the hospital for stroke work-up. Also complaining of significant back and right lower extremity pain. He had history of lumbar spine surgery done earlier this year and has developed significant pain radiating to lower extremities more on the right. Seen by neurology service due to concern for TIA started on aspirin along with Plavix. Echocardiogram showing preserved ejection fraction with no wall motion abnormality. Pending A1c level with LDL of 78. Neurology impression of atypicalmigraine. Due to his significant back pain plan was to obtain MRI lumbar spine. Due to presence of pain pump unable to obtain MRI in our facility and he was scheduled to get MRI at [facility]. Patient not able to get MRI as he was anxious andwas having trouble sitting. Neurology recommending outpatient follow-up and hascleared to be discharged. He was also seen by pain management with impression of postlaminectomy syndrome and recommendation for outpatient follow-up since patient is currently on Plavix and cannot receive injection at this time. Patient mentioned having appointment with his neurosurgeon regarding injection and is advised to keep that follow-up. He has been able to ambulate. PT recommending SNF which patient is refusing and will be discharged home. There is possibility of polypharmacy and recommend titration of medication with his primary care provider to prevent dizziness. His labs showed microcytic anemia with no signs of active bleeding. Will recommend repeat CBC in 4 days and if remains anemic he will require further work-up. Advised to avoid NSAID. Aspirin has been added for 30 days and can be discontinued after and continue onplavix. Condition Condition at Discharge: Stable Time Spent with Patient Time spent providing/coordinating discharge services (# min): 26 Diagnostic Studies Completed and Pending Studies Pending studies at discharge: 05/04/22 04:32 A1C with Estimated Average Glu [CHEM] IN AM 05/05/22 13:26 MR lumbar spine wo/w con Routine 05/06/22 14:21 Stool Occult Blood (Guaiac) Routine 05/07/22 05:00 Complete Blood Count Auto Diff IN AM Ferritin [CHEM] IN AM Iron and TIBC Profile [CHEM] IN AM Exam Physical Exam Vital Signs: Temp Pulse Resp BP Pulse Ox O2 Del Method 97.9 F 79 18 131/80 93 L Room Air 05/06/22 12:00 05/06/22 12:00 05/06/22 12:00 05/06/22 12:00 05/06/22 12:00 05/06/22 12:00 Const General: cooperative Orientation: alert, awake and oriented x3 Eyes Pupils: PERRL EOM: EOM intact bilaterally and No nystagmus Resp Effort & Inspection: normal respiratory effort and able to speak in complete sentences Auscultation: no rales, no rhonchi and no wheezes Cardio Rate: regular rate Rhythm: regular rhythm Heart Sounds: S1 normal and S2 normal GI Palpation: soft, not firm, no guarding and nontender Musc Cervical Spine: cervical ROM normal Neuro General: patient alert, patient awake, patient oriented x3, moves all extremities and no focal motor deficits Cranial Nerves: CN's II-XII intact bilaterally Cognition: normal cognition Speech: speech normal and speech normal Motor: muscle tone normal throughout Extrem General: no clubbing, cyanosis or edema, no pedal edema and no calf tenderness Psych Appearance: grossly normal Discharge Plan Discharge Plan Patient Disposition: Home Activity: Ambulate as Tolerated Diet: Low-Sodium and Low-Cholesterol Additional Instructions: Take aspirin for 30 days along with Plavix and then discontinue taking aspirin. Prescriptions: New hydrocodone-acetaminophen 5-325 mg Tablet 1 tab PO Q6HR PRN (Reason: Pain) 3 Days Qty: 12 0RF aspirin 81 mg Tablet,Delayed Release (Dr/Ec) 81 mg PO DAILY 30 Days Qty: 30 0RF Continued DHEA 10 mg-47 mg calcium Tablet 10 tab PO DAILY promethazine 12.5 mg Tablet 25 mg PO DAILY dicyclomine 20 mg tablet 20 mg PO QID Label Comments: omeprazole 40 mg capsule,delayed release(DR/EC) 40 mg PO DAILY nortriptyline 50 mg capsule 50 mg PO DAILY pregabalin 100 mg capsule 200 mg PO 3XD mirtazapine 30 mg tablet 30 mg PO DAILY furosemide 40 mg tablet 1 tab PO DAILY Label Comments: clopidogrel 75 mg tablet 1 tab PO DAILY Label Comments: potassium chloride [Klor-Con M20] 20 mEq tablet,ER particles/crystals 1 tab PO DAILY Label Comments: fluticasone propionate [Flonase Allergy Relief] 50 mcg/actuation Bolt,Suspension 2 spray INTRANASAL DAILY duloxetine [Cymbalta] 60 mg Capsule,Delayed Release(Dr/Ec) 30 mg PO TID metoprolol tartrate 50 mg Tablet 50 mg PO DAILY valacyclovir [Valtrex] 500 mg Tablet 500 mg PO DIRECTED PRN (Reason: Outbreak) baclofen 20 mg Tablet 20 mg PO BID atorvastatin 80 mg tablet 1 tab PO QHS Label Comments: telmisartan [Micardis] 80 mg Tablet 80 mg PO DAILY doxazosin 4 mg Tablet 4 mg PO DAILY biotin 10,000 mcg Capsule 1 tab PO QHS finasteride 5 mg Tablet 5 mg PO DAILY One-A-Day Men's Multivitamin 400-300 mcg Tablet 1 tab PO DAILY testosterone cypionate 200 mg/mL Kit 150 mg IM Q2W Held acetaminophen 500 mg Tablet 1,000 mg PO Q6H PRN (Reason: Pain) Hold Instructions: until taking hydrocodone Discontinued ibuprofen 800 mg Tablet 800 mg PO TID Other Ambulatory Orders: Complete Blood Count Auto Diff (Routine) Timeframe: 4 Days Location: Determined by Patient Ordered By: Cathy Zavala PT/OT/SP OutPatient Referral (Routine) Timeframe: 1 Day Location: Determined by Patient Ordered By: Cathy Zavala Follow Up: [facility] [Outside] - 06/10/22 3:40 pm (With Melia EUBANKS and Dr. Feliz) [facility] Transitions of Care [Outside] - 05/07/22 9:45 am (You have been referred to the [facility] for Coordinated Care ([facility]) for a post discharge education visit because you have one or more conditions that have been associated with a moderate to high risk of complications that may increase the likelihood that you will be readmitted to the hospital again in the near future. .? Address:? [address] [place] [address], [facility].? NOTE:? PLEASE BRING ALL OF YOUR MEDICATION BOTTLES WITH YOU TO THE APPOINTMENT WELL YOUR DISCHARGE INSTRUCTIONS.) Jose Ray DO [Primary Care Provider] - 05/27/22 1:15 pm (You have been scheduled for a follow up appointment for the following date and time, please call to reschedule if needed. This is the next soonest available appointment, they asked you please call if you need anything before then and the office will call you if anything opens up before then.) Documented By: Cathy Zavala MD 05/06/22 1505 Signed By: <Electronically signed by Cathy Zavala MD> 05/06/22 9219 [facility] Work Phone: Evaluation + Plan note Future Appointments Appointment Date:09/25/2021 07:50:00 AM Scheduled Provider:Eagle MCKEE MD Location:Extended Care Appointment Type:EC TCU [facility] Extended Care Evaluation + Plan note Future Appointments Appointment Date:05/28/2022 08:00:00 AM Scheduled Provider: Location:.MRI Appointment Type:MRI Spine (FT) Appointment Date:05/28/2022 09:00:00 AM Scheduled Provider: Location:.MRI Appointment Type:MRI Spine (FT) Future Scheduled Tests Radiology* MRI Spine Cervical w/o Contrast 05/28/22 * MRI [facility]ine Lumbar w/ + [facility] Future Appointments Appointment Date:05/28/2022 08:00:00 AM Scheduled Provider: Location:.MRI Appointment Type:MRI Spine (FT) Appointment Date:05/28/2022 09:00:00 AM Scheduled Provider: [facility] Future Scheduled Tests Radiology* MRI Spine Cervical w/ + w/o Contrast 05/28/22 * MRI Spine Cervical w/o Contrast 05/28/22 * MRI Spine Lumbar w/ + w/o Contrast 05/28/22 [facility] note* Diagnosis Spondylolisthesis of lumbar region- Primary Acquired spondylolisthesis [facility] Diagnosis S/P lumbar fusion- Primary Arthrodesis status [facility]* Diagnosis Postoperative infection, unspecified type, subsequent encounter- Primary S/P lumbar fusion Arthrodesis status [facility]* Diagnosis S/P lumbar fusion- Primary Arthrodesis status [facility] Diagnosis Spondylolisthesis of lumbar region- Primary Acquired spondylolisthesis documented [facility]* Diagnosis Chronic bilateral low back pain without sciatica- Primary [facility]* Diagnosis Spondylolisthesis of lumbar region- Primary Acquired spondylolisthesis Pre-op testing Preoperative examination, unspecified Spondylolisthesis of lumbar region Acquired spondylolisthesis documented in this encounter [facility] note* Diagnosis BMI 37.0-37.9, adult- Primary Body Mass Index 37.0-37.9, adult Pre-op testing Preoperative examination, unspecified 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) Primary hypertension Unspecified essential hypertension Mixed hyperlipidemia Intractable chronic migraine without aura and without status migrainosus Chronic migraine without aura, with intractable migraine, so stated, without mention of status migrainosus Gastroesophageal reflux disease without esophagitis Esophageal reflux Stage 3 chronic kidney disease, unspecified whether stage 3a or 3b CKD (HCC) Postoperative infection, unspecified type, subsequent encounter Obesity without serious comorbidity, unspecified classification, unspecified obesity type Sleep apnea, unspecified type Spondylolisthesis of lumbar region Acquired spondylolisthesis [facility]* Diagnosis Pre-op testing- Primary Preoperative examination, unspecified S/P lumbar fusion Arthrodesis status Spondylolisthesis of lumbar region Acquired spondylolisthesis documented in this encounter [facility] note* Diagnosis Spondylolisthesis of lumbar region Acquired spondylolisthesis Lumbar radiculopathy Thoracic or lumbosacral neuritis or radiculitis, unspecified documented in this encounter [facility] note* Diagnosis Radiculopathy, lumbar region Thoracic or lumbosacral neuritis or radiculitis, unspecified documented in this encounter [facility] noteNo [facility] [employer] Other Evaluation note* Diagnosis Alteration in skin integrity related to surgical incision- Primary Wound healing, delayed Open wound(s) (multiple) of unspecified site(s), complicated Keloid Keloid scar documented in this encounter [facility] note* Diagnosis Medication monitoring encounter- Primary Encounter for therapeutic drug monitoring documented in this encounter [facility] note* Diagnosis Spondylolisthesis, lumbar region- Primary [facility]* Diagnosis Radiculopathy, lumbar region Thoracic or lumbosacral neuritis or radiculitis, unspecified documented in this encounter [facility] note* Diagnosis Spondylolisthesis of lumbar region- Primary Acquired spondylolisthesis documented in this encounter [facility] note* Diagnosis Lumbar radiculopathy- Primary Thoracic or lumbosacral neuritis or radiculitis, unspecified documented in this encounter [facility] note* Diagnosis Lumbar pseudoarthrosis- Primary Nonunion of fracture documented in this encounter [facility] noteNo assessment information availableM[facility]own [facility] Work Phone: Evaluation note* Diagnosis Acute bilateral low back pain with left-sided sciatica- Primary Lumbar pseudoarthrosis Nonunion of fracture documented in this encounter [facility] note* Diagnosis Lumbar pseudoarthrosis Nonunion of fracture documented in this encounter [facility] note* Diagnosis Lumbar pseudoarthrosis Nonunion of fracture documented in this encounter [facility] note* Diagnosis Spinal stenosis of lumbar region with neurogenic claudication- Primary Spinal stenosis, lumbar region, with neurogenic claudication documented in this encounter [facility] note* Diagnosis Spinal stenosis of lumbar region with neurogenic claudication- Primary Spinal stenosis, lumbar region, with neurogenic claudication documented in this encounter [facility] note* Diagnosis Lumbar radiculopathy- Primary Thoracic or lumbosacral neuritis or radiculitis, unspecified documented in this encounter [facility] note* Diagnosis Lumbar radiculopathy- Primary Thoracic or lumbosacral neuritis or radiculitis, unspecified documented in this encounter [facility] note* Diagnosis Putti's syndrome- Primary Thoracic or lumbosacral neuritis or radiculitis, unspecified documented in this encounter [facility] note* Diagnosis Lumbar pseudoarthrosis- Primary Nonunion of fracture documented in this encounter [facility] note* Diagnosis Onset Date Resolution Status Chronic kidney disease, stage 3 acute Dizziness acute Elevated blood pressure read ing with diagnosis of hypertension acute Obstructive sleep apnea acut e Repeated falls acute Slurred speech [facility] Work Phone: Evaluation note* Diagnosis Onset Date Resolution Status Atypical migraine acute Chronic kidney disease, stage 3 acute Dizziness acute Elevated blood pressure read ing with diagnosis of hypertension acute Lumbar radicular pain acute Obstructive sleep apnea acut e Postlaminectomy syndrome acu te Repeated falls acute Sepsis acute Slurred speech [facility] Work Phone: Evaluation note* Diagnosis Lumbar radiculopathy- Primary Thoracic or lumbosacral neuritis or radiculitis, unspecified [facility] Diagnosis Onset Date Resolution Status Diarrhea acute [facility] Work Phone: Evaluation note* Diagnosis Angina pectoris (CMS/HCC)- Primary Other and unspecified angina pectoris Shortness of breath on exertion Shortness of breath Essential hypertension Unspecified essential hypertension Mixed hyperlipidemia Morbid obesity (CMS/HCC) Morbid obesity Cerebrovascular accident (CVA), unspecified mechanism (CMS/HCC) Never smoked any substance documented in this encounter [facility] Work Phone: History and physical note Author Cathy Zavala [facility] May 03, 2022 6:54pm Note Date/Time May 03, 2022 6 :54pm [facility] [address] [place] [address] Hospitalist H&P Signed Patient: Mary Jimenez MR#: [id number] : 1960 Acct:[id number] Age/Sex: 61 / M Adm Date: 2 Loc: 4N Room: [address] [place] [address] Type: ADM IN Attending Dr: Cathy Zavala MD Copies to: Jose Ray,DO Cathy Zavala MD~ HPI DATE OF EXAMINATION: 05/03/22 CHIEF COMPLAINT: Dizziness with slurred speech. HISTORY OF PRESENT ILLNESS: Patient is 61-year-old male with past medical history of obstructive sleep apneaon CPAP, morbid obesity, chronic kidney disease stage III, CVA without residual weakness, hypertension and chronic back pain. Patient presented to ER with complaint of lightheadedness and slurred speech. As per the patient he woke up in her normal state of health and while trying to go up to get his dog he felt lightheaded and dizzy leading to fall without loss of consciousness. He had another fall when he felt his legs giving out and afterward he was found to haveslurring of speech. In the emergency room his symptoms resolved with CT head negative for acute abnormality. He was not a candidate for tPA due to resolution of symptoms and presenting outside the window period. During my examination patient was sleeping comfortably and once awake he denies feeling dizzy, vertigo, visual disturbance, headache or new numbness or weakness in extremities. Patient history of chronic back pain and underwent lumbar spinal surgery in the beginning of the year at [facility]. He was seen in the emergency room in August and was transferred to the [facility] from the emergency room due to concern for infection and had positive blood cultures. Patient cannot recall the details but mentioned after getting discharged from the hospital he stayed in alf facility for 3-month. He has chronic back pain with left leg sciatica after surgery he developed right leg pain. He has chronic numbness in the right foot. He follows with pain management and mentioned he has been taken off hydrocodone and switch to acetaminophen and ibuprofen. It appears he also has history of arthritis and is scheduled for MRIof his right knee on Thursday. His labs did not show any significant abnormality and he will be kept under observation. Review of Systems Review of Systems Review of systems: 12 point review of system is unremarkable other than mentioned in history of presenting illness PMFSH Vaccinated for COVID-19?: Yes Medical History (Updated 05/03/22 @ 18:53 by Cathy Zavala MD) CVA (cerebral vascular accident) Hypertension Morbid obesity Obstructive sleep apnea Surgical History Hx of total knee replacement Previous back surgery Family History Other Hypertension Social History Smoking Status: Never smoker Substance Use Type: Alcohol and CBD Oil Meds Medications and Allergies Allergies Penicillins Allergy (Severe, Verified 05/03/22 15:09) Anaphylaxis latex Allergy (Verified 05/03/22 15:09) Unknown Reaction Home Medications atorvastatin 80 mg tablet 1 tab PO QHS 03/30/17 [History Confirmed 05/03/22] baclofen 20 mg tablet 20 mg PO BID 03/30/17 [History Confirmed 05/03/22] biotin 10,000 mcg capsule 1 tab PO QHS 03/30/17 [History Confirmed 05/03/22] clopidogrel 75 mg tablet 1 tab PO DAILY 03/30/17 [History Confirmed 05/03/22] doxazosin 4 mg tablet 4 mg PO DAILY 03/30/17 [History Confirmed 05/03/22] duloxetine 60 mg capsule,delayed release (Cymbalta) 30 mg PO DAILY 03/30/17 [History Confirmed 05/03/22] finasteride 5 mg tablet 5 mg PO DAILY 03/30/17 [History Confirmed 05/03/22] fluticasone propionate 50 mcg/actuation nasal spray,suspension (Flonase Allergy Relief) 2 spray intranasal DAILY 03/30/17 [History Confirmed 05/03/22] furosemide 40 mg tablet 1 tab PO DAILY 03/30/17 [History Confirmed 05/03/22] metoprolol tartrate 50 mg tablet 50 mg PO DAILY 03/30/17 [History Confirmed 05/03/22] lrkzuulg-yszoustq-zymez acid 400 mcg-vit K 20 mcg-lycop 300 mcg tablet (One-A-Day Men's Multivitamin) 1 tab PO DAILY 03/30/17 [History Confirmed 05/03/22] potassium chloride 20 mEq tablet,extended release(part/cryst) (Klor-Con M) 1 tabPO DAILY 03/30/17 [History Confirmed 05/03/22] telmisartan 80 mg tablet (Micardis) 80 mg PO DAILY 03/30/17 [History Confirmed 05/03/22] testosterone cypionate 200 mg/mL intramuscular kit 150 mg IM Q2W 03/30/17 [History Confirmed 05/03/22] valacyclovir 500 mg tablet (Valtrex) 500 mg PO DIRECTED PRN Outbreak 03/30/17[History Confirmed 05/03/22] dicyclomine 20 mg tablet 20 mg PO QID 07/14/18 [History Confirmed 05/03/22] prasterone (dhea)-calcium carbonate 10 mg-47 mg calcium tablet (DHEA) 10 tab PO DAILY 07/14/18 [History Confirmed 05/03/22] promethazine 12.5 mg tablet 25 mg PO DAILY 07/14/18 [History Confirmed 05/03/22] mirtazapine 30 mg tablet 30 mg PO DAILY 09/11/21 [History Confirmed 05/03/22] nortriptyline 50 mg capsule 50 mg PO DAILY 09/11/21 [History Confirmed 05/03/22] omeprazole 40 mg capsule,delayed release 40 mg PO DAILY 09/11/21 [History Confirmed 05/03/22] pregabalin 100 mg capsule 100 mg PO DAILY 09/11/21 [History Confirmed 05/03/22] acetaminophen 500 mg tablet 1,000 mg PO Q6H PRN Pain 05/03/22 [History Confirmed 05/03/22] ibuprofen 800 mg tablet 800 mg PO TID 05/03/22 [History Confirmed 05/03/22] Exam Physical Exam Vital Signs: Temp Pulse Resp BP Pulse Ox O2 Del Method 98.6 F 59 L 18 152/95 H 94 L Room Air 05/03/22 14:45 05/03/22 18:19 05/03/22 18:19 05/03/22 18:19 05/03/22 18:19 05/03/22 18:19 Const General: cooperative Orientation: alert, awake and oriented x3 HEENT Head: normal to inspection, no palpable skull fracture, normocephalic and atraumatic Ears: hearing grossly normal bilaterally Nose: external nose normal Eyes Pupils: PERRL EOM: EOM intact bilaterally and No nystagmus Neck Neck: normal visual inspection, full ROM and no meningeal signs Resp Effort & Inspection: normal respiratory effort and able to speak in complete sentences Auscultation: no rales, no rhonchi and no wheezes Cardio Rate: regular rate Rhythm: regular rhythm Heart Sounds: S1 normal and S2 normal GI Palpation: soft, not firm, no guarding and nontender Musc Cervical Spine: normal cervical lordosis and cervical ROM normal Neuro General: patient alert, patient awake, patient oriented x3, moves all extremities and no focal motor deficits Cranial Nerves: CN's II-XII intact bilaterally Cognition: normal cognition Speech: speech normal and speech normal Motor: muscle tone normal throughout Other: Moving all extremities with strength normal in all 4 extremities. Extrem General: no pedal edema and no calf tenderness Psych Appearance: grossly normal Results Lab Results Labs: Laboratory Last Values Corrected WBC 7.5 X10E3/uL (4.1-10.5) 05/03/22 14:46 Uncorrected WBC Count 7.5 x10E3/uL (4.5-11.0) 05/03/22 14:46 RBC 4.81 x10E6/uL (3.90-5.60) 05/03/22 14:46 Hgb 11.5 g/dL (13.0-17.0) L 05/03/22 14:46 Hct 37.1 % (38.8-50.0) L 05/03/22 14:46 MCV 77.2 fl (83.5-101) L 05/03/22 14:46 MCH 23.8 pg (27.5-35.2) L 05/03/22 14:46 MCHC 30.9 g/dL (32.5-35.6) L 05/03/22 14:46 RDW 18.0 % (12.0-14.8) H 05/03/22 14:46 Plt Count 213 x10E3/uL (150-450) 05/03/22 14:46 MPV 8.8 fl (6.6-10.1) 05/03/22 14:46 Neut % (Auto) 67.7 % (.) 05/03/22 14:46 Lymph % (Auto) 17.2 % (.) 05/03/22 14:46 [place] % (Auto) 9.5 % (.) 05/03/22 14:46 Eos % (Auto) 4.5 % (.) 05/03/22 14:46 Baso % (Auto) 1.1 % (.) 05/03/22 14:46 Neut # (Auto) 5.0 x10E3/uL (1.8-7.7) 05/03/22 14:46 Lymph # (Auto) 1.3 x10E3/uL (1.00-4.8) 05/03/22 14:46 Camas # (Auto) 0.7 x10E3/uL (0.0-0.8) 05/03/22 14:46 Eos # (Auto) 0.3 x10E3/uL (0.0-0.45) 05/03/22 14:46 Baso # (Auto) 0.1 x10E3/uL (0.0-0.2) 05/03/22 14:46 Nucleated RBC % (auto) 0.0 % (0-0.5) 05/03/22 14:46 PHA Creatinine Clear 66.36 05/03/22 14:46 Sodium 136 mmol/L (136-146) 05/03/22 14:46 Potassium 4.3 mmol/L (3.5-5.1) 05/03/22 14:46 Chloride 103 mmol/L (95-114) 05/03/22 14:46 Carbon Dioxide 25.6 mmol/L (22.0-30.0) 05/03/22 14:46 Anion Gap 11.7 mEq/L (6.0-15.0) 05/03/22 14:46 BUN 20 mg/dL (9-23) 05/03/22 14:46 Creatinine 1.59 mg/dL (0.64-1.27) H 05/03/22 14:46 POC Creatinine 1.7 mg/dl (0.6-1.3) H 05/03/22 14:47 POC eGFR Amer 50 05/03/22 14:47 POC eGFR Non-Afric Amer 41 05/03/22 14:47 Est GFR ( Amer) 54 mL/Min 05/03/22 14:46 Est GFR (Non-Af Amer) 44 mL/Min 05/03/22 14:46 Glucose 84 mg/dL (70-100) 05/03/22 14:46 POC Glucose 83 mg/dl 05/03/22 14:39 Calcium 8.2 mg/dL (8.2-10.2) 05/03/22 14:46 Magnesium 2.1 mg/dL (1.6-2.6) 05/03/22 14:46 Troponin I High Sens 4 pg/mL (0-20) 05/03/22 14:46 B-Natriuretic Peptide 20.0 pg/mL (5-100) 05/03/22 14:46 Urine Color Yellow (Yellow) 05/03/22 15:55 Urine Appearance Clear (Clear) 05/03/22 15:55 Urine pH 6.0 (5.0-9.0) 05/03/22 15:55 Ur Specific [place] 1.015 (1.001-1.030) 05/03/22 15:55 Urine Protein Negative mg/dL (Negative) 05/03/22 15:55 Urine Glucose (UA) Normal mg/dL (Normal) 05/03/22 15:55 Urine Ketones Negative (Negative) 05/03/22 15:55 Urine Occult Blood Negative (Negative) 05/03/22 15:55 Urine Nitrite Negative (Negative) 05/03/22 15:55 Urine Bilirubin Negative (Negative) 05/03/22 15:55 Urine Urobilinogen Normal mg/dL (Normal) 05/03/22 15:55 Ur Leukocyte Esterase 1+ (Negative) H 05/03/22 15:55 Urine RBC None seen /HPF (0-4) 05/03/22 15:55 Urine WBC 0-1 /HPF (0-4) 05/03/22 15:55 Ur Squamous Epith Cells 1-2 /HPF (0-2) 05/03/22 15:55 Urine Bacteria None seen (None Seen) 05/03/22 15:55 Hyaline Casts 0-8 /LPF (0-8) 05/03/22 15:55 COVID-19 PCR Interp N/A 05/03/22 15:30 SARS Antigen (LFIA) Negative (Negative) 05/03/22 15:30 Microbiology Results Micro: Microbiology - Results from entire visit 05/03/22 15:30 Nasal SARS Antigen (LFIA) - Final A&P - Hospitalist Assessment/Plan (1) Dizziness: (2) Slurred speech: (3) Repeated falls: (4) Obstructive sleep apnea: (5) Chronic kidney disease, stage 3: Plan Patient brought to the emergency room with complaint of fall, dizziness and slurred speech. In the ER his symptoms have resolved and currently denies having dizziness with no focal motor deficit noted on examination. Given his presentation he will be kept in the hospital for stroke work-up. Will consult neurology and obtain 2D echocardiogram, carotid Doppler, A1c and lipid profile. Continue statin and start him on aspirin. Consult PT/OT. Check for orthostasis. Patient does have history of chronic back pain and arthritis of knees likely contributing to his fall. DVT prophylaxis. Fall precaution. Documented By: Cathy Zavala MD 05/03/22 1843 Signed By: <Electronically signed by Cathy Zavala MD> 05/03/22 1854 [facility] Work Phone: History general Narrative - Reported* Type Description Date Medical History Essential HTN-1990 Medical History chronic pain Medical History Mixed hyperlipedemia-2000 Medical History constipation Medical History insomnia Medical History kidney stones Medical History Stroke-2013 Medical History Chronic rhinitis Medical History Obstructive sleep apnea severe C PAP Dr. Merida Medical History Acid Peptic disease Medical History Recurring cold sores Medical History Impaired Glucose Intolerance-201 1 Medical History DENIS/panic disorder Medical History Osteoarthritis left knee (xray) 2016 Medical History Linchen simplex chronicus Surgical History right ankle repair 1979 Surgical History right knee surgery Chine 2010 Surgical History lumbar surgery x 2 Surgical History back surgery perez L4-5 her niated disc 2005 Surgical History Lithotripsy 1990 Surgical History colonoscopy, diverti culitis, hemmorhoid Esparza, EGD - erosive esophagitis, hiatal hernia Esparza 2010 Surgical History L4-5 decompressive laminectomy/ fusion Savita 2010 Surgical History Left knee arthroscopy- Crissysge 2 015 Surgical History Right shoulder bicept tendon re pair- 02/14/2016 Surgical History L KNEE SURGERY DR HOLLEY 06/13 Surgical History EGD/COLONOSCOPY/Poly pectomyTubulovillous adenome w/ focal high grade epithelial dysplasia, diverticulosis, Spastic colon 11/2015 Surgical History EGD, bile reflux, Esparza Jan us2016 Surgical History colonoscopy, diverticulosis, Mc Cormick January 2017 Surgical History RTKA-Dr Holley 06/06/19 Surgical History I&D RTKA with poly exchange syn ovectomy- Dr Holley 07/19/19 Hospitalization History kidney stones 1979 Hospitalization History Cardiac cath (neg) NO 1997 Hospitalization History Myoview stress test (neg ) [facility] 10/2007 Hospitalization History Lexiscan excercise stres s test (neg) NO 07/2010 Hospitalization History Acute [facility] [place] Hospitalization History Acute cephalgia 11/2013 Hospitalization History Lexiscan stress test (ne g) NO 06/2014 [facility] Other Hissvod general Narrative - Reported* Type Description Date Medical History Essential HTN-1990 Medical History chronic pain Medical History Mixed hyperlipedemia-2000 Medical History constipation Medical History insomnia Medical History kidney stones Medical History Stroke-2013 Medical History Chronic rhinitis Medical History Obstructive sleep apnea severe C PAP Dr. Merida Medical History Acid Peptic disease Medical History Recurring cold sores Medical History Impaired Glucose Intolerance-201 1 Medical History DENIS/panic disorder Medical History Osteoarthritis left knee (xray) 2015 Medical History Linchen simplex chronicus Surgical History right ankle repair 1979 Surgical History right knee surgery Kresg2010 Surgical History lumbar surgery x 2 Surgical History back surgery perez L4-5 her niated disc 2006 Surgical History Lithotripsy 1990 Surgical History colonoscopy, diverti culitis, hemmorhoid Esparza, EGD - erosive esophagitis, hiatal hernia Esparza 2010 Surgical History L4-5 decompressive laminectomy/ fusion Savita 2010 Surgical History Left knee arthroscopy- Crissysge 2 015 Surgical History Right shoulder bicept tendon re pair- 02/14/2016 Surgical History L KNEE SURGERY DR HOLLEY 06/13 Surgical History EGD/COLONOSCOPY/Poly pectomyTubulovillous adenome w/ focal high grade epithelial dysplasia, diverticulosis, Spastic colon 11/2015 Surgical History EGD, bile reflux, Esparza Aug ust 2016 Surgical History colonoscopy, diverticulosis, Mc Cormick January 2017 Surgical History RTKA-Dr Holley 06/06/19 Surgical History I&D RTKA with poly e xchange synovectomy- Dr Holley 07/19/19 Surgical History Lumbar fusion [facility] July 2021 Surgical History Revision of lumbar f usion, incision and drainage infection [facility] August 2021 Surgical History Revision lumbar fusion, L4 to p clem fusion [facility] December 2021 Hospitalization History kidney stones 1979 Hospitalization History Cardiac cath (neg) NO 1997 Hospitalization History Myoview stress test (neg ) NO 10/2007 Hospitalization History Lexiscan excercise stres s test (neg) NO 07/2010 Hospitalization History Acute [facility] [facility] [place] 2013 Hospitalization History Acute cephalgia 11/2013 Hospitalization History Lexiscan stress test (ne g) NO 06/2014 [facility] Other Hisbosc general Narrative - Reported* Type Description Date Medical History Essential HTN-1990 Medical History chronic pain Medical History Mixed hyperlipedemia-2000 Medical History constipation Medical History insomnia Medical History kidney stones Medical History Stroke-2013 Medical History Chronic rhinitis Medical History Obstructive sleep apnea severe C PAP Dr. Merida Medical History Acid Peptic disease Medical History Recurring cold sores Medical History Impaired Glucose Intolerance-201 1 Medical History DENIS/panic disorder Medical History Osteoarthritis left knee (xray) 2015 Medical History Linchen simplex chronicus Surgical History right ankle repair 1979 Surgical History right knee surgery Kree 2010 Surgical History lumbar surgery x 2 Surgical History back surgery perez L4-5 her niated disc 2005 Surgical History Lithotripsy 1990 Surgical History colonoscopy, diverti culitis, hemmorhoid Esparza, EGD - erosive esophagitis, hiatal hernia Esparza 2010 Surgical History L4-5 decompressive laminectomy/ fusion Barney 2010 Surgical History Left knee arthroscopy- Kresge 2 015 Surgical History Right shoulder bicept tendon re pair- 02/14/2016 Surgical History L KNEE SURGERY DR HOLLEY 06/13 Surgical History EGD/COLONOSCOPY/Poly pectomyTubulovillous adenome w/ focal high grade epithelial dysplasia, diverticulosis, Spastic colon 11/2015 Surgical History EGD, bile reflux, Esparza Aug ust 2016 Surgical History colonoscopy, diverticulosis, Mc Cormick January 2017 Surgical History RTKA-Dr Holley 06/06/19 Surgical History I&D RTKA with poly e xchange synovectomy- Dr Holley 07/19/19 Surgical History Lumbar fusion [facility] July 2021 Surgical History Revision of lumbar f usion, incision and drainage infection [facility] August 2021 Surgical History Revision lumbar fusion, L4 to p clem fusion [facility] December 2021 Hospitalization History kidney stones 1979 Hospitalization History Cardiac cath (neg) NO 1997 Hospitalization History Myoview stress test (neg ) NO 10/2007 Hospitalization History Lexiscan excercise stres s test (neg) NO 07/2010 Hospitalization History Acute [facility] [place] 2013 Hospitalization History Acute cephalgia 11/2013 Hospitalization History Lexiscan stress test (ne g) NO 06/2014 Hospitalization History 1) Postlaminecto my syndrome: (2) Atypical migraine: (3) Obstructive sleep apnea: (4) Dizziness: (5) Repeated falls: (6) Slurred speech: (7) Chronic kidney disease, stage 3: (8) Lumbar radicular pain: Fi 05/03/2022 [facility] Other Hisqyvo general Narrative - Reported* Type Description Date Medical History Essential HTN-1990 Medical History chronic pain Medical History Mixed hyperlipedemia-2000 Medical History constipation Medical History insomnia Medical History kidney stones Medical History Stroke-2013 Medical History Chronic rhinitis Medical History Obstructive sleep apnea severe C PAP Dr. 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 Medical History Day time fatigue Medical History Arthritis of right knee Surgical History right ankle repair 1979 Surgical History right knee surgery Kresge 2010 Surgical History lumbar surgery x 2 Surgical History back surgery perez L4-5 her niated disc 2006 Surgical History Lithotripsy 1990 Surgical History colonoscopy, diverti culitis, hemmorhoid Esparza, EGD - erosive esophagitis, hiatal hernia Esparza 2010 Surgical History L4-5 decompressive laminectomy/ fusion Savita 2010 Surgical History Left knee arthroscopy- Kresge 2 015 Surgical History Right shoulder bicept tendon re pair- 02/14/2016 Surgical History L KNEE SURGERY DR HOLLEY 06/13 Surgical History EGD/COLONOSCOPY/Poly pectomyTubulovillous adenome w/ focal high grade epithelial dysplasia, diverticulosis, Spastic colon 11/2015 Surgical History EGD, bile reflux, Esparza Aug ust 2016 Surgical History colonoscopy, diverticulosis, Mc Cormick January 2017 Surgical History RTKA-Dr Holley 06/06/19 Surgical History I&D RTKA with poly e xchange synovectomy- Dr Holley 07/19/19 Surgical History Lumbar fusion [facility] July 2021 Surgical History Revision of lumbar f usion, incision and drainage infection [facility] August 2021 Surgical History Revision lumbar fusion, L4 to p clem fusion [facility] December 2021 Surgical History Carpal tunnel left hand 2020 Surgical History Right knee arthroscopy Dr. Yancey n 2021 Hospitalization History kidney stones 1979 Hospitalization History Cardiac cath (neg) [facility] 1997 Hospitalization History Myoview stress test (neg ) NO 10/2007 Hospitalization History Lexiscan excercise stres s test (neg) NO 07/2010 Hospitalization History Acute [facility] – [place] 2013 Hospitalization History Acute cephalgia 11/2013 Hospitalization History Lexiscan stress test (ne g) [facility] 06/2014 Hospitalization History 1) Postlaminecto my syndrome: (2) Atypical migraine: (3) Obstructive sleep apnea: (4) Dizziness: (5) Repeated falls: (6) Slurred speech: (7) Chronic kidney disease, stage 3: (8) Lumbar radicular pain: Fi 05/03/2022 [facility] Other History general Narrative - Reported* Type Description Date Medical History Essential HTN-1990 Medical History chronic pain Medical History Mixed hyperlipedemia-2000 Medical History constipation Medical History insomnia Medical History kidney stones Medical History Stroke-2013 Medical History Chronic rhinitis Medical History Obstructive sleep apnea severe C PAP Dr. 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 Medical History Day time fatigue Medical History Arthritis of right knee Surgical History right ankle repair 1979 Surgical History right knee surgery Kresg2010 Surgical History lumbar surgery x 2 Surgical History back surgery perez L4-5 her niated disc 2006 Surgical History Lithotripsy 1990 Surgical History colonoscopy, diverti culitis, hemmorhoid Esparza, EGD - erosive esophagitis, hiatal hernia Esparza 2010 Surgical History L4-5 decompressive laminectomy/ fusion Barney 2010 Surgical History Left knee arthroscopy- Chine 2 015 Surgical History Right shoulder bicept tendon re pair- 02/14/2016 Surgical History L KNEE SURGERY DR HOLLEY 06/13 Surgical History EGD/COLONOSCOPY/Poly pectomyTubulovillous adenome w/ focal high grade epithelial dysplasia, diverticulosis, Spastic colon 11/2015 Surgical History EGD, bile reflux, Esparza Aug ust 2016 Surgical History colonoscopy, diverticulosis, Mc Cormick January 2017 Surgical History RTKA-Dr Holley 06/06/19 Surgical History I&D RTKA with poly e xchange synovectomy- Dr Holley 07/19/19 Surgical History Lumbar fusion [facility] July 2021 Surgical History Revision of lumbar f usion, incision and drainage infection [facility] August 2021 Surgical History Revision lumbar fusion, L4 to p clem fusion [facility] December 2021 Surgical History Carpal tunnel left hand 2020 Surgical History Right knee arthroscopy Dr. Yancey n 2021 Hospitalization History kidney stones 1979 Hospitalization History Cardiac cath (neg) NO 1997 Hospitalization History Myoview stress test (neg ) NO 10/2007 Hospitalization History Lexiscan excercise stres s test (neg) NO 07/2010 Hospitalization History Acute [facility] [place] 2013 Hospitalization History Acute cephalgia 11/2013 Hospitalization History Lexiscan stress test (ne g) NO 06/2014 Hospitalization History 1) Postlaminecto my syndrome: (2) Atypical migraine: (3) Obstructive sleep apnea: (4) Dizziness: (5) Repeated falls: (6) Slurred speech: (7) Chronic kidney disease, stage 3: (8) Lumbar radicular pain: Fi 05/03/2022 Hospitalization History ER for cellulitis left a rm 09.03.2022 [facility] Other History of Present illness Narrative* Since here for follow-up continue management for recent evaluation for symptoms chest pain suspicious of angina, hypertension, obesity and hyperlipidemia. Since last time I saw him he reported complete resolution of his symptoms of chest pain. He denies lightheadedness, dizziness or syncope. He admits to limited exercise tolerance primarily due to his back pain. His previous stress test few years back was normal. He had excellent response to medical therapy. * ASSESSMENT: * 1. Episode of chest pain suspicious of angina. Last stress test 2 years ago was negative. Patient had excellent response to low-dose beta-cornell and nitrate. Has not had any chest pain since he was placed on medical therapy. He does have moderate to high risk for ischemic heart disease * 2. Hypertension, well controlled. * 3. Obesity with close to 20 pound weight loss * 4. Previous history of stroke with expressive aphasia has improved. * 5. Hyperlipidemia * 6. Chronic back pain with multiple back surgeries * RECOMMENDATIONS * : * 1. Discussed treatment option. The patient appears to be stable on current medical regimen. We discussed further work-up including invasive evaluation versus noninvasive and invasive assessment. We discussed cardiac catheterization or repeating stress test. Following lengthy discussion the patient elected to continue current therapy and elected for conservative and medical management. He will deferred stress test and a heart cath. He may consider that down the road if symptoms recur. * 2. The patient was counseled regarding losing weight, exercise, and risk factor adjustment. * 3. We will see him back in 6 months or earlier if the need arise. Patient was advised to notify me if he had any recurrence of his chest pain * 5. I reviewed with patient his medication profile. He is on numerous medication. * 4. Continue aggressive approach risk factor modification I told him to review with his PCP and consider trying to simplify his regimen. I did recommend to continue Plavix and stop Plavix for now [facility] [address] DO Work Phone: Hospital course Narrative No data available for this section [facility] Discharge instructions No data available for this section [facility] Discharge instructions Additional Instructions DISCHARGE INSTRUCTIONS FOR KNEE ARTHROSCOPY The following instructions must be followed very closely: -If you need pain pills, start before pain becomes intense. Antibiotics and pain pills are frequently less upsetting to your stomach if you take them with food such as crackers or bread. -If you having excessive or persistent pain, swelling, bleeding, nausea, vomiting, or any other problems, you should first call your surgeon for advice. If you are unable to contact your surgeon, seek help from a hospital emergency room. If you were given drugs to make you drowsy and or pain medication, follow these instructions: -You should spend the remainder of the day and evening resting. -You should not attempt to walk, including going to the bathroom, without assistance. You may be lightheaded from the medications you received. -Eat light today to avoid nausea. You should be able to return to your normal diet 24 to 36 hours after surgery. -For the next 24 hours you should not consume alcohol, attempt to drive, use any power tools, sign important documents or make important personal or business decisions. After that do so only if you feel perfectly normal and alert. -Follow carefully any verbal or written instructions your surgeon may have given you. DIET -Begin with a liquid diet and advance to your normal diet as tolerated. ACTIVITY -You may gradually increase your activity as tolerated. Until your first post- operative visit, elevate your knee higher than your heart, whenever you are sitting or lying down. -Knee swelling will gradually decrease after surgery. Increased swelling is usually a sign of over-activity and should be a signal for you to be less active and apply ice as needed. -Your exercise program is the maldonado to successful rehabilitation of your knee. Bend and straighten your knee hip and ankle daily to maintain motion until your first post-op office visit. The possible need for Physical Therapy will then be discussed. -You may / may not bear weight on your operative leg, use your crutches for walking until you can lift 5 pounds with a straight leg raise on the affected side. This is important for protection of your knee after surgery. Although you will find that you can walk without crutches, it is not advised until you are not limping. Use your crutches until your limp is gone. -Driving is legal, but if you are involved in an accident, you must be able to prove that you maintained full control of your vehicle. It is advised that you do not drive until your strength returns, generally in 1 2 weeks. Similarly, all sports activities are discouraged, at least until your first post-operative visit at which time we will discuss how and when to resume sports. INCREASED PAIN -Usually this is the result of too much activity and should respond well to rest, ice and elevation. If this does not provide relief, take the pain medication as directed but do not return to activity. Pain is a protective mechanism that signals potential injury to your knee and should not be masked excessively by medication when you are active. If severe pain persists despite rest, elevation and medication, contact your surgeon. -You will be given a prescription for pain medication when you are discharged. If you have any problems with the medication, it should be discontinued and your surgeon notified. -The sensation of fluid inside the knee is not unusual or a cause for concern. It represents fluids from surgery and they will be absorbed in time. -Elevation of the leg and application of an ice pack to the knee will minimize swelling and discomfort in the first 48 hours after surgery DRESSING -A soft compression dressing has been applied to your knee. This dressing should be comfortable and absorb any leakage of fluid or blood from your operated knee. Although the dressing may become moist or blood stained, this is not unusual. If this persists beyond 2-3 days notify your surgeon. -You may remove the dressing 72 hours after your surgery. You may possibly have tape strips or sutures under the dressing. Tape strips can be removed -- sutures will be taken out in the office, if used. -Apply bandaids to the operative sites and keep these clean and dry until your first post-operative visit, apply betadine and bandaids to the arthroscopy portals in the morning (and again in the evening as needed) on a daily basis. INCISIONS -The portals of entry may be sore and develop bruising over the next several days. The bruising eventually resolves and does not require any special care. -Do not apply any creams or lotions to your knee. Your portals will heal well on their own. BATHING -You may shower 72 hours after surgery. Bathing or soaking in water is to be avoided until your first post-operative visit. PRECAUTIONS -If you develop fever (101 degrees or above), increasing pain (not relieved by rest, elevation, ice and medication as prescribed), redness or swelling in your calves or feet, please contact the office or emergency room. If you notice increasing drainage from the operative portals after the second or third day, this should also be reported. FOLLOW UP Your post-operative follow-up appointment is generally between 7 and 10 days after surgery and you will be given an appointment card. Do not hesitate to call the office if any problems arise before your appointment. [ ][facility] Work Phone: Progress note No data available for this section [facility] Author Cathy Zavala [facility] May 04, 2022 4:15pm Note Date/Time May 04, 2022 4 :11pm [facility] [address] [place] [address] Hospitalist Progress Note Signed Patient: Mary Jimenez MR#: [id number] : 1960 Acct:[id number] Age/Sex: 61 / M Adm Date: 2 Loc: Room: [address] [place] [address] Type: ADM IN Attending Dr: Cathy Zavala MD Copies to: ~ Date of Service: 05/04/2022 Subjective Subjective Narrative: Patient complaining of right leg pain which is chronic and requesting to resume his [place]. He was not able to sleep well last night. Unable to check orthostasis since he is not able to stand for long. Appreciate neurology consultation with plan to obtain MRI lumbar spine Exam Physical Exam Vital Signs: Temp Pulse Resp BP Pulse Ox O2 Del Method 97.2 F L 67 18 141/82 H 97 Room Air 05/04/22 15:31 05/04/22 15:31 05/04/22 15:31 05/04/22 15:31 05/04/22 15:31 05/04/22 15:31 Const General: cooperative Orientation: alert, awake and oriented x3 Resp Effort & Inspection: normal respiratory effort and able to speak in complete sentences Auscultation: no rales, no rhonchi and no wheezes Cardio Rate: regular rate Rhythm: regular rhythm Heart Sounds: S1 normal and S2 normal GI Palpation: soft, not firm, no guarding and nontender Neuro General: patient alert, patient awake, patient oriented x3, moves all extremities and no focal motor deficits Cranial Nerves: CN's II-XII intact bilaterally Cognition: normal cognition Speech: speech normal Extrem General: no pedal edema and no calf tenderness Objective Lab Results CBC & Chem 7: 05/03/22 14:46 05/04/22 04:32 Microbiology Results Microbiology 05/03/22 15:30 Nasal SARS Antigen (LFIA) - Final Meds Allergies and Active Meds Allergies Penicillins Allergy (Severe, Verified 05/03/22 15:09) Anaphylaxis latex Allergy (Verified 05/03/22 15:09) Unknown Reaction Active Meds: Active Medications Generic Name Dose Route Start Last Admin Trade Name Freq PRN Reason Stop Dose Admin Acetaminophen 1,000 mg 05/04/22 00:00 05/04/22 11:38 Acetaminophen 500 Mg Tablet PO 05/04/23 00:00 1,000 mg Q6HR YNES Administration Hydrocodone Bitart/Acetaminophen 1 tab 05/04/22 14:44 05/04/22 15:11 Hydrocodone/Acetaminophen 5-325 Mg Tablet PO 1 tab Q6H PRN Administration Pain Aspirin 81 mg 05/03/22 19:00 05/04/22 09:31 Aspirin 81 Mg Tablet. PO 05/03/23 18:59 81 mg DAILY YNES Administration Atorvastatin Calcium 80 mg 05/03/22 22:00 05/03/22 21:04 Atorvastatin 80 Mg Tablet PO 05/03/23 21:59 80 mg QHS YNES Administration Baclofen 20 mg 05/03/22 22:00 05/04/22 00:06 Baclofen 20 Mg Tablet PO 05/03/23 21:59 20 mg QHS YNES Administration Clopidogrel Bisulfate 75 mg 05/04/22 09:00 05/04/22 09:31 Clopidogrel Bisulfate 75 Mg Tablet PO 05/04/23 08:59 75 mg DAILY YNES Administration Dicyclomine HCl 20 mg 05/03/22 22:00 05/04/22 13:38 Dicyclomine 20 Mg Tablet PO 05/03/23 21:59 20 mg QID YNES Administration Doxazosin Mesylate 4 mg 05/04/22 09:00 05/04/22 09:33 Doxazosin 4 Mg Tablet PO 05/04/23 08:59 4 mg DAILY YNES Administration Duloxetine HCl 30 mg 05/04/22 14:00 05/04/22 13:38 Duloxetine 30 Mg Capsule.Dr QUIJANO 05/04/23 13:59 30 mg TID YNES Administration Enoxaparin Sodium 40 mg 05/04/22 10:00 05/04/22 09:40 Enoxaparin 40 Mg/0.4 Ml Syringe SUBCUT 05/04/23 09:59 40 mg DAILY@10 YNES Administration Finasteride 5 mg 05/04/22 09:00 05/04/22 09:32 Finasteride 5 Mg Tablet PO 05/04/23 08:59 5 mg DAILY YNES Administration Fluticasone Propionate 2 spray 05/04/22 15:30 Fluticasone Propionate Bolt 120 Bolt/16 Gm Bottle INTRANASAL 05/04/23 15:29 DAILY PRN ALLERGIES / CONJESTION Hydralazine HCl 10 mg 05/03/22 18:54 Hydralazine 20 Mg/Ml Vial IV-PUSH 05/03/23 18:53 Q4H PRN Hypertension Irbesartan 300 mg 05/04/22 09:00 05/04/22 09:32 Irbesartan 300 Mg Tablet PO 05/04/23 08:59 300 mg DAILY YNES Administration Metoprolol Tartrate 25 mg 05/03/22 21:00 05/04/22 09:31 Metoprolol Tartrate 25 Mg Tablet PO 05/03/23 20:59 25 mg BID YNES Administration Mirtazapine 30 mg 05/04/22 09:00 05/04/22 09:32 Mirtazapine 30 Mg Tablet PO 05/04/23 08:59 30 mg DAILY YNES Administration Nortriptyline HCl 50 mg 05/04/22 09:00 05/04/22 09:32 Nortriptyline 25 Mg Capsule PO 05/04/23 08:59 50 mg DAILY YNES Administration Omeprazole 40 mg 05/04/22 09:00 05/04/22 09:32 Omeprazole 20 Mg Capsule.Dr PO 05/04/23 08:59 40 mg DAILY YNES Administration Pregabalin 200 mg 05/04/22 14:00 05/04/22 13:38 Pregabalin 100 Mg Capsule PO 10/31/22 13:59 200 mg TID YNES Administration A&P - Hospitalist Assessment/Plan (1) Dizziness: (2) Slurred speech: (3) Repeated falls: (4) Obstructive sleep apnea: (5) Chronic kidney disease, stage 3: Plan Patient complaining of severe pain in the right lower extremity and back. Appreciate neurology consultation with plan to obtain MRI lumbar spine with and without contrast given his history of lumbar spinal surgery and postop infection. Pending echocardiogram and carotid Doppler. Continue aspirin along with Plavix and statin. Pending A1c level with LDL of 78. Continue PT/OT. DVTprophylaxis with Lovenox. Documented By: Cathy Zavala MD 05/04/221609 Signed By: <Electronically signed by Cathy Zavala MD> 05/04/22 6920 [facility] Work Phone: Progress note Author Se Feliz [facility] May 05, 2022 5:07pm Note Date/Time May 05, 2022 9 :04am [facility] [address] [place] [address] Neurology Progress Note Signed Patient: Mary Jimenez MR#: [id number] : 1960 Acct:[id number] Age/Sex: 61 / M Adm Date: 2 Loc: Room: [address] [place] [address] Type: ADM INOo Attending Dr: Cathy Zavala MD Copies to: ~ Date of Service: 05/05/2022 Subjective Subjective Narrative: Patient states his legs still feel weak and will not hold him up. They get shaky and he falls. He did have one episode of incontinence when he was admitted but none since then. He denies any saddle paresthesias. He has occasional paresthesias in the left upper extremity which he states is positional. Review of Systems Cardiovascular Cardiovascular: Denies chest pain Respiratory Respiratory: Denies dyspnea Gastrointestinal Gastrointestinal: Denies nausea Musculoskeletal Musculoskeletal: Reports back pain, Reports muscle weakness, Reports neck pain and Reports radiating pain into limb (Bilateral lower extremities) Neurologic Neurologic: Denies localized weakness, Reports frequent falls, Denies headache(s) and Reports paresthesias Exam Physical Exam Vital Signs: Temp Pulse Resp BP Pulse Ox O2 Del Method 98.7 F 66 16 148/80 H 96 Room Air 05/05/22 08:00 05/05/22 08:00 05/05/22 08:00 05/05/22 08:00 05/05/22 08:00 05/05/22 08:00 Narrative: GENERAL EXAM: * Constitutional - Patient appears well nourished and well groomed * Patient is alert and oriented x3. * Apical is regular rate and rhythm. No murmur was appreciated. No edema noted. Pulses are normal * Lung sounds are clear to auscultation * Abdomen is soft with normal bowel sounds * Neck is supple without carotid bruit * Ophthalmoscopic exam deferred. No injection or drainage noted. NEURO EXAM: * Attention span/concentration normal * Speech is clear and fluent * Cranial nerve II. Vision is intact. AMBER * Cranial nerve III, IV and . Extraocular muscles are intact. No nystagmus is appreciated * Cranial nerve V and VII. No facial asymmetry is appreciated. Temperature and pinprick is equal bilaterally * Cranial nerve VIII hearing is intact * Cranial nerve IX and X speech is clear fluent. Palate elevates symmetrically * Cranial nerve XI head turn side to side full range of motion. Shoulder shrug is equal bilaterally * Cranial nerve XII tongue is midline full range of motion MOTOR EXAM: * Strength is 5/5 throughout. No pronator drift was appreciated. He does get tremulous with strength testing in lower extremities * Muscle tone and bulk are normal * Gait not assessed SENSORY EXAM: * Temperature, pinprick, vibration are intact in all 4 extremities. Vibration is increased in the right lower extremity compared to the left. CEREBELLAR EXAM: * [id number] and alternating movements are intact and normal in bilateral upper extremities * [id number] and alternating movements are intact and normal in lower extremities REFLEX EXAM: * 3/4 at the bicep and brachialis bilaterally. No Jacinta appreciated * 3/4 at the patella bilaterally with cross abductor. No clonus Objective Vital Signs Vital Signs: Vital Signs - 24 hr 05/04/22 11:49 05/04/22 15:31 05/04/22 20:00 Temperature 97.6 F 97.2 F L 98.9 F Pulse Rate 58 L 67 68 Respiratory Rate 18 18 18 Blood Pressure 167/95 H 141/82 H 123/75 02 Sat by Pulse Oximetry 96 97 96 Oxygen Delivery Method Room Air Room Air Room Air 05/04/22 20:00 05/04/22 23:47 05/05/22 03:39 Temperature 98.1 F Pulse Rate 72 59 L Respiratory Rate 18 18 Blood Pressure 151/90 H 129/82 02 Sat by Pulse Oximetry 95 95 Oxygen Delivery Method Room Air Room Air Room Air 05/05/22 08:00 Temperature 98.7 F Pulse Rate 66 Respiratory Rate 16 Blood Pressure 148/80 H 02 Sat by Pulse Oximetry 96 Oxygen Delivery Method Room Air Labs CBC & Chem 7: 05/03/22 14:46 05/04/22 04:32 Therapy Recommendations Therapy Recommendations: OT Recommendations OT Recommended Discharge Home with Home Health,Retirement Facility Location OT Recommended Services at 24/7 Supervision Discharge PT Recommendations PT Recommended Discharge Home with Home Health,Retirement Facility Location PT Recommended Services at Physical Therapy,Occupational Therapy,24/7 Discharge Supervision Assessment/Plan (1) Atypical migraine: Assessment/Problem Details: 61-year-old man with history of stroke, hypertension, CKD, tobacco use, sleep apnea. He presented to the emergency department on May 03, 2022 for slurredspeech that started about 6 hours prior excluding him from tPA consideration. He had a fall prior to this starting he was he felt like his legs got weak and gave out. A second fall after the slurred speech and already started due to thesame issue. ER staff noticed he was stuttering. History of lumbosacral spondylosis and sciatica symptoms and chronic back pain. He denied a room spinning sensation. He said he did feel lightheaded. Intermittent blurred vision for the past week. Fluctuating leg weakness most likely related to chronic lumbar stenosis and radiculopathy. He has had 3 surgeries since July of this year on his lumbar spine at the [facility]. He had discectomy and fusion from L3 down to S1 in total. On physical exam he is hyperreflexic raising concern for a cervical pathology. He would expect lower motor neuron symptoms with lumbar pathology. He had fluctuating presyncopal sensations with this that may have represented orthostatic hypotension. Also with fluctuating dysarthria which may have also been manifestations of his presyncope. His only lingering symptoms are leg weakness and back pain. Fairly low suspicion for TIA but we can treat for that accordingly given his history of cerebrovascular disease. 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 He did have a CT scan of the head that was nonacute. Interval history: Patient states symptoms are persistent. On examination he is not necessarily weak however he does become tremulous with strength testing in lower extremities. Interestingly enough he is hyperreflexic throughout. 1. MRI lumbar spine with and without contrast (surgery early 2021) 2. Consider neurosurgical evaluation based on the lumbar images 3. Orthostatic vital signs (currently he is unable to stand long enough to do them) 4. Medications that might make him presyncopal include the doxazosin, furosemide, and metoprolol 5. Considerable risk for serotonin syndrome with the nortriptyline, duloxetine,and pregabalin 6. Medications that might cause fluctuating weakness or slurred speech: Baclofen, Lyrica (200 mg 3 times daily with an eGFR of 41) 7. On clopidogrel 75 mg daily and atorvastatin 80 mg daily. Aspirin 81 mg daily temporarily for 30 days with his other medications. 8. Hemoglobin A1c is pending 9. LDL 78 10. Urinalysis normal 11. COVID-19 negative 12. Carotid ultrasound is pending. He did have a carotid ultrasound in July that did not reveal occlusive disease 13. PT OT recommends home with home health versus SNF 14. MRI cervical spine pending 15. We will follow I personally saw this patient on the day of the encounter, reviewed the history,performed the maldonado elements of the exam, formulated the plan of care and confirmed the W[employer] note Patient is a 61-year-old male with multiple lumbar surgeries admitted to the hospital due to inability to ambulate secondary to pain. The patient has good strength on neurological exam. Cannot exclude a structural lesion in the lumbarspine contributing to intractable pain on ambulation. The patient will require MRI scan and will require sedation. Patient will likely need rehabilitation forunderlying ambulation. The patient may need pain management assessment and recommendations. Will await the above results and make further recommendations based upon patient's clinical course. Code(s): G43.009 - Migraine without aura, not intractable, without status migrainosus Status: Acute (2) Sepsis: Code(s): A41.9 - Sepsis, unspecified organism Status: Acute Documented By: LYN Solis 0901 Signed By: <Electronically signed by LYN Clark> 05/05/22 1212 <Electronically signed by MD Se Feliz> 05/05/22 1703 [facility] Work Phone: Progress note Author Cathy Zavala [facility] May 05, 2022 1:17pm Note Date/Time May 05, 2022 1 :12pm [facility] [address] [place] [address] Hospitalist Progress Note Signed Patient: Mary Jimenez MR#: [id number] : 1960 Acct:[id number] Age/Sex: 61 / M Adm Date: 2 Loc: 4N Room: [address] [place] [address] Type: ADM INOo Attending Dr: Cathy Zavala MD Copies to: ~ Date of Service: 05/05/2022 Subjective Subjective Narrative: Patient examined at bedside and continues to complain of back pain radiating to right lower and has been having this pain since he got the surgery done earlier this year. MRI lumbar spine has been ordered. Exam Physical Exam Vital Signs: Temp Pulse Resp BP Pulse Ox O2 Del Method 98.5 F 69 20 141/78 H 96 Room Air 05/05/22 11:48 05/05/22 11:48 05/05/22 11:48 05/05/22 11:48 05/05/22 11:48 05/05/22 11:48 Const General: cooperative Orientation: alert, awake and oriented x3 Resp Effort & Inspection: normal respiratory effort and able to speak in complete sentences Auscultation: no rales, no rhonchi and no wheezes Cardio Rate: regular rate Rhythm: regular rhythm Heart Sounds: S1 normal and S2 normal GI Palpation: soft, not firm, no guarding and nontender Neuro General: patient alert, patient awake, patient oriented x3, moves all extremities and no focal motor deficits Cranial Nerves: CN's II-XII intact bilaterally Cognition: normal cognition Speech: speech normal and speech normal Motor: muscle tone normal throughout Extrem General: no clubbing, cyanosis or edema and no calf tenderness Psych Appearance: grossly normal Objective Lab Results CBC & Chem 7: 05/03/22 14:46 05/04/22 04:32 Meds Allergies and Active Meds Allergies Penicillins Allergy (Severe, Verified 05/03/22 15:09) Anaphylaxis latex Allergy (Verified 05/03/22 15:09) Unknown Reaction Active Meds: Active Medications Generic Name Dose Route Start Last Admin Trade Name Freq PRN Reason Stop Dose Admin Hydrocodone Bitart/Acetaminophen 1 tab 05/05/22 13:01 Hydrocodone/Acetaminophen 5-325 Mg Tablet PO Q4HR PRN Pain Aspirin 81 mg 05/03/22 19:00 05/05/22 08:43 Aspirin 81 Mg Tablet. PO 05/03/23 18:59 81 mg DAILY YNES Administration Atorvastatin Calcium 80 mg 05/03/22 22:00 05/04/22 21:22 Atorvastatin 80 Mg Tablet PO 05/03/23 21:59 80 mg QHS YNES Administration Baclofen 20 mg 05/03/22 22:00 05/04/22 21:21 Baclofen 20 Mg Tablet PO 05/03/23 21:59 20 mg QHS YNES Administration Clopidogrel Bisulfate 75 mg 05/04/22 09:00 05/05/22 08:43 Clopidogrel Bisulfate 75 Mg Tablet PO 05/04/23 08:59 75 mg DAILY YNES Administration Dicyclomine HCl 20 mg 05/03/22 22:00 05/05/22 10:04 Dicyclomine 20 Mg Tablet PO 05/03/23 21:59 20 mg QID YNES Administration Doxazosin Mesylate 4 mg 05/04/22 09:00 05/05/22 10:10 Doxazosin 4 Mg Tablet PO 05/04/23 08:59 4 mg DAILY YNES Administration Duloxetine HCl 30 mg 05/04/22 14:00 05/05/22 10:05 Duloxetine 30 Mg Capsule. PO 05/04/23 13:59 30 mg TID YNES Administration Enoxaparin Sodium 40 mg 05/04/22 10:00 05/05/22 10:32 Enoxaparin 40 Mg/0.4 Ml Syringe SUBCUT 05/04/23 09:59 Not Given DAILY@10 YNES Finasteride 5 mg 05/04/22 09:00 05/05/22 11:15 Finasteride 5 Mg Tablet PO 05/04/23 08:59 5 mg DAILY YNES Administration Fluticasone Propionate 2 spray 05/04/22 15:30 05/04/22 17:38 Fluticasone Propionate Bolt 120 Bolt/16 Gm Bottle INTRANASAL 05/04/23 15:29 2 spray DAILY PRN Administration ALLERGIES / CONJESTION Hydralazine HCl 10 mg 05/03/22 18:54 Hydralazine 20 Mg/Ml Vial IV-PUSH 05/03/23 18:53 Q4H PRN Hypertension Irbesartan 300 mg 05/04/22 09:00 05/05/22 10:05 Irbesartan 300 Mg Tablet PO 05/04/23 08:59 300 mg DAILY YNES Administration Metoprolol Tartrate 25 mg 05/03/22 21:00 05/05/22 10:04 Metoprolol Tartrate 25 Mg Tablet PO 05/03/23 20:59 25 mg BID YNES Administration Mirtazapine 30 mg 05/04/22 09:00 05/05/22 10:04 Mirtazapine 30 Mg Tablet PO 05/04/23 08:59 30 mg DAILY YNES Administration Nortriptyline HCl 50 mg 05/04/22 09:00 05/05/22 10:04 Nortriptyline 25 Mg Capsule PO 05/04/23 08:59 50 mg DAILY YNES Administration Omeprazole 40 mg 05/04/22 09:00 05/05/22 10:04 Omeprazole 20 Mg Capsule.Dr PO 05/04/23 08:59 40 mg DAILY YNES Administration Pregabalin 200 mg 05/04/22 14:00 05/05/22 10:05 Pregabalin 100 Mg Capsule PO 10/31/22 13:59 200 mg TID YNES Administration A&P - Hospitalist Assessment/Plan (1) Dizziness: (2) Slurred speech: (3) Repeated falls: (4) Obstructive sleep apnea: (5) Chronic kidney disease, stage 3: (6) Atypical migraine: (7) Lumbar radicular pain: Plan MRI lumbar spine has been ordered given his radicular pain. Carotid Doppler negative for critical stenosis pending echocardiogram. Patient currently on aspirin, statin and Plavix. Continue PT/OT. Continue pain management and DVT prophylaxis, Documented By: Cathy Zavala MD 05/05/22 1301 Signed By: <Electronically signed by Cathy Zavala MD> 05/05/22 1317 [facility] Work Phone: Progress note Author Se Feliz [facility] May 06, 2022 4:12pm Note Date/Time May 06, 2022 8 :20am [facility] [address] [place] [address] Neurology Progress Note Signed Patient: Mary Jimenez MR#: [id number] 2655 : 1960 Acct:[id number] Age/Sex: 61 / M Adm Date: 2 Loc: 4N Room: 0W7848-3 Type: ADM INOo Attending Dr: Cathy Zavala MD Copies to: ~ Date of Service: 05/06/2022 Subjective Subjective Narrative: Persistent and severe back pain with radiation into bilateral lower extremities which is worse with load bearing. Review of Systems Cardiovascular Cardiovascular: Denies chest pain Respiratory Respiratory: Denies dyspnea Gastrointestinal Gastrointestinal: Denies fecal incontinence and Denies nausea Genitourinary Genitourinary: Denies urinary incontinence Musculoskeletal Musculoskeletal: Reports back pain, Reports muscle weakness, Reports neck pain and Reports radiating pain into limb Neurologic Neurologic: Denies abnormal speech, Denies confusion, Reports localized weakness(Bilateral lower extremities), Denies headache(s) and Reports paresthesias Exam Physical Exam Vital Signs: Temp Pulse Resp BP Pulse Ox O2 Del Method 97.9 F 63 19 118/74 94 L Room Air 05/06/22 05:15 05/06/22 05:15 05/06/22 05:15 05/06/22 05:15 05/06/22 05:15 05/06/22 05:15 Narrative: GENERAL EXAM: * Constitutional - Patient appears well nourished and well groomed * Patient is alert and oriented x3. NEURO EXAM: * Attention span/concentration normal * Speech is clear and fluent * Cranial nerve II. Vision is intact. AMBER * Cranial nerve III, IV and . Extraocular muscles are intact. No nystagmus is appreciated * Cranial nerve V and VII. No facial asymmetry is appreciated. Temperature and pinprick is equal bilaterally * Cranial nerve VIII hearing is intact * Cranial nerve IX and X speech is clear fluent. Palate elevates symmetrically * Cranial nerve XI head turn side to side full range of motion. Shoulder shrug is equal bilaterally * Cranial nerve XII tongue is midline full range of motion MOTOR EXAM: * Strength is 5/5 throughout. No pronator drift was appreciated. He does get tremulous with strength testing in lower extremities * Muscle tone and bulk are normal * Gait not assessed SENSORY EXAM: * Temperature, pinprick, vibration are intact in all 4 extremities. Vibration is increased in the right lower extremity compared to the left. CEREBELLAR EXAM: * [id number] and alternating movements are intact and normal in bilateral upper extremities * [id number] and alternating movements are intact and normal in lower extremities REFLEX EXAM: * 3/4 at the bicep and brachialis bilaterally. No Jacinta appreciated * 3/4 at the patella bilaterally with cross abductor. No clonus Objective Vital Signs Vital Signs: Vital Signs - 24 hr 05/05/22 11:48 05/05/22 11:45 05/05/22 15:46 Temperature 98.5 F 99.2 F H Pulse Rate 69 68 Respiratory Rate 20 20 Blood Pressure 141/78 H 148/83 H 02 Sat by Pulse Oximetry 96 97 Oxygen Delivery Method Room Air Room Air Room Air 05/05/22 16:00 05/05/22 21:00 05/06/22 00:00 Temperature 97.4 F L Pulse Rate 73 Respiratory Rate 15 Blood Pressure 129/71 02 Sat by Pulse Oximetry 94 L Oxygen Delivery Method Room Air Room Air Room Air 05/06/22 05:15 Temperature 97.9 F Pulse Rate 63 Respiratory Rate 19 Blood Pressure 118/74 02 Sat by Pulse Oximetry 94 L Oxygen Delivery Method Room Air Labs CBC & Chem 7: 05/03/22 14:46 05/04/22 04:32 Therapy Recommendations Therapy Recommendations: OT Recommendations OT Recommended Discharge Home with Home Health,Retirement Facility Location OT Recommended Services at 24 Supervision Discharge PT Recommendations PT Recommended Discharge Home with Home Health,Retirement Facility Location PT Recommended Services at Physical Therapy,Occupational Therapy,19/01 Discharge Supervision Assessment/Plan (1) Atypical migraine: Assessment/Problem Details: 61-year-old man with history of stroke, hypertension, CKD, tobacco use, sleep apnea. He presented to the emergency department on May 03, 2022 for slurredspeech that started about 6 hours prior excluding him from tPA consideration. He had a fall prior to this starting he was he felt like his legs got weak and gave out. A second fall after the slurred speech and already started due to thesame issue. ER staff noticed he was stuttering. History of lumbosacral spondylosis and sciatica symptoms and chronic back pain. He denied a room spinning sensation. He said he did feel lightheaded. Intermittent blurred vision for the past week. Fluctuating leg weakness most likely related to chronic lumbar stenosis and radiculopathy. He has had 3 surgeries since July of this year on his lumbar spine at the [facility]. He had discectomy and fusion from L3 down to S1 in total. On physical exam he is hyperreflexic raising concern for a cervical pathology. He would expect lower motor neuron symptoms with lumbar pathology. He had fluctuating presyncopal sensations with this that may have represented orthostatic hypotension. Also with fluctuating dysarthria which may have also been manifestations of his presyncope. His only lingering symptoms are leg weakness and back pain. Fairly low suspicion for TIA but we can treat for that accordingly given his history of cerebrovascular disease. 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 He did have a CT scan of the head that was nonacute. Interval history: Patient continues to complain of severe back pain with radiation into the lower extremities limiting his mobility. Pain is worse with load bearing. MRIs are pending. 1. MRI lumbar spine with and without contrast (surgery early 2021) 2. Consider neurosurgical evaluation based on the lumbar images 3. Orthostatic vital signs (currently he is unable to stand long enough to do them) 4. Medications that might make him presyncopal include the doxazosin, furosemide, and metoprolol 5. Considerable risk for serotonin syndrome with the nortriptyline, duloxetine,and pregabalin 6. Medications that might cause fluctuating weakness or slurred speech: Baclofen, Lyrica (200 mg 3 times daily with an eGFR of 41) 7. On clopidogrel 75 mg daily and atorvastatin 80 mg daily. Aspirin 81 mg daily temporarily for 30 days with his other medications. 8. Hemoglobin A1c is pending 9. LDL 78 10. Urinalysis normal 11. COVID-19 negative 12. Carotid ultrasound is pending. He did have a carotid ultrasound in July that did not reveal occlusive disease 13. PT OT recommends home with home health versus SNF 14. MRI cervical spine pending 15. Consult pain management 16. We will follow I personally saw this patient on the day of the encounter, reviewed the history,performed the maldonado elements of the exam, formulated the plan of care and confirmed the WATER TRAINER note The patient is a 61-year-old male with multiple lumbar surgeries in the past andincreased difficulty ambulating in home due to intractable back pain and inability to bear weight. The patient was sent for open MRI scanner at a 1.5 Megan scanner due to placement of bone stimulator. The patient could not tolerate the study due to body habitus. The patient has been evaluated by physical therapy and recommendations for either home health or alf facility. The patient will need physical therapy upon discharge. The patient has pain management physician in [facility] which she can follow-up with or can see pain management at [facility]. The patient can attempt repeat MRI scan as an outpatient and a large bore MRI scanner. Code(s): G43.009 - Migraine without aura, not intractable, without status migrainosus Status: Acute (2) Sepsis: Code(s): A41.9 - Sepsis, unspecified organism Status: Acute Documented By: LYN Solis 818 Signed By: <Electronically signed by LYN Clark> 05/06/22943 <Electronically signed by MD Se Feliz> 05/06/22 1612 [facility] Work Phone: Progress note Author Cathy Zavala [facility] May 06, 2022 2:21pm Note Date/Time May 06, 2022 2 :21pm [facility] [address] [place] [address] Hospitalist Progress Note Signed Patient: Mary Jimenez MR#: [id number] : 1960 Acct:[id number] Age/Sex: 61 / M Adm Date: 2 Loc: 4N Room: [address] [place] [address] Type: ADM INOo Attending Dr: Cathy Zavala MD Copies to: ~ Date of Service: 05/06/2022 Subjective Subjective Narrative: Patient examined at bedside with no overnight event. He has been able to ambulate with physical therapy but continues to complain of back pain radiating to right lower extremity. Scheduled for MRI at [facility] due to presence of spinal stimulator. Exam Physical Exam Vital Signs: Temp Pulse Resp BP Pulse Ox O2 Del Method 97.9 F 79 18 131/80 93 L Room Air 05/06/22 12:00 05/06/22 12:00 05/06/22 12:00 05/06/22 12:00 05/06/22 12:00 05/06/22 12:00 Const Orientation: alert, awake and oriented x3 Resp Effort & Inspection: normal respiratory effort and able to speak in complete sentences Auscultation: no rales, no rhonchi and no wheezes Cardio Rate: regular rate Rhythm: regular rhythm Heart Sounds: S1 normal and S2 normal GI Palpation: soft, not firm, no guarding and nontender Musc Cervical Spine: normal cervical lordosis and cervical ROM normal Neuro General: patient alert, patient awake, patient oriented x3, moves all extremities and no focal motor deficits Cranial Nerves: CN's II-XII intact bilaterally Cognition: normal cognition Speech: speech normal and speech normal Motor: muscle tone normal throughout Extrem General: no clubbing, cyanosis or edema, no pedal edema and no calf tenderness Psych Appearance: grossly normal Objective Lab Results CBC & Chem 7: 05/03/22 14:46 05/04/22 04:32 Meds Allergies and Active Meds Allergies Penicillins Allergy (Severe, Verified 05/03/22 15:09) Anaphylaxis latex Allergy (Verified 05/03/22 15:09) Unknown Reaction Active Meds: Active Medications Generic Name Dose Route Start Last Admin Trade Name Freq PRN Reason Stop Dose Admin Hydrocodone Bitart/Acetaminophen 1 tab 05/05/22 13:01 05/06/22 09:37 Hydrocodone/Acetaminophen 5-325 Mg Tablet PO 1 tab Q4HR PRN Administration Pain Aspirin 81 mg 05/03/22 19:00 05/06/22 09:37 Aspirin 81 Mg Tablet.Dr PO 05/03/23 18:59 81 mg DAILY YNES Administration Atorvastatin Calcium 80 mg 05/03/22 22:00 05/06/22 00:34 Atorvastatin 80 Mg Tablet PO 05/03/23 21:59 Not Given QHS YNES Baclofen 20 mg 05/03/22 22:00 05/06/22 00:34 Baclofen 20 Mg Tablet PO 05/03/23 21:59 Not Given QHS YNES Clopidogrel Bisulfate 75 mg 05/04/22 09:00 05/06/22 09:37 Clopidogrel Bisulfate 75 Mg Tablet PO 05/04/23 08:59 75 mg DAILY YNES Administration Dicyclomine HCl 20 mg 05/03/22 22:00 05/06/22 09:37 Dicyclomine 20 Mg Tablet PO 05/03/23 21:59 20 mg QID YNES Administration Doxazosin Mesylate 4 mg 05/04/22 09:00 05/06/22 09:37 Doxazosin 4 Mg Tablet PO 05/04/23 08:59 4 mg DAILY YNES Administration Duloxetine HCl 30 mg 05/04/22 14:00 05/06/22 09:37 Duloxetine 30 Mg Capsule. PO 05/04/23 13:59 30 mg TID YNES Administration Enoxaparin Sodium 40 mg 05/04/22 10:00 05/06/22 09:38 Enoxaparin 40 Mg/0.4 Ml Syringe SUBCUT 05/04/23 09:59 40 mg DAILY@10 YNES Administration Finasteride 5 mg 05/04/22 09:00 05/06/22 09:40 Finasteride 5 Mg Tablet PO 05/04/23 08:59 5 mg DAILY YNES Administration Fluticasone Propionate 2 spray 05/04/22 15:30 05/04/22 17:38 Fluticasone Propionate Bolt 120 Bolt/16 Gm Bottle INTRANASAL 05/04/23 15:29 2 spray DAILY PRN Administration ALLERGIES / CONJESTION Hydralazine HCl 10 mg 05/03/22 18:54 Hydralazine 20 Mg/Ml Vial IV-PUSH 05/03/23 18:53 Q4H PRN Hypertension Irbesartan 300 mg 05/04/22 09:00 05/06/22 09:37 Irbesartan 300 Mg Tablet PO 05/04/23 08:59 300 mg DAILY YNES Administration Metoprolol Tartrate 25 mg 05/03/22 21:00 05/06/22 09:37 Metoprolol Tartrate 25 Mg Tablet PO 05/03/23 20:59 25 mg BID YNES Administration Mirtazapine 30 mg 05/04/22 09:00 05/06/22 09:37 Mirtazapine 30 Mg Tablet PO 05/04/23 08:59 30 mg DAILY YNES Administration Nortriptyline HCl 50 mg 05/04/22 09:00 05/06/22 09:37 Nortriptyline 25 Mg Capsule PO 05/04/23 08:59 50 mg DAILY YNES Administration Omeprazole 40 mg 05/04/22 09:00 05/06/22 09:37 Omeprazole 20 Mg Capsule. PO 05/04/23 08:59 40 mg DAILY YNES Administration Pregabalin 200 mg 05/04/22 14:00 05/06/22 09:37 Pregabalin 100 Mg Capsule PO 10/31/22 13:59 200 mg TID YNES Administration A&P - Hospitalist Assessment/Plan (1) Dizziness: (2) Slurred speech: (3) Repeated falls: (4) Obstructive sleep apnea: (5) Chronic kidney disease, stage 3: (6) Atypical migraine: (7) Lumbar radicular pain: Plan Pain management has been consulted due to his significant pain. He is also scheduled for MRI given his lumbar spinal surgery in the beginning of the year and presentation of weakness and pain. We will continue PT/OT. Continue aspirin, statin, Plavix, metoprolol and DVT prophylaxis. Echocardiogram showingEF of 55 to 60% with normal wall motion. Carotid Doppler negative for significant stenosis. Documented By: Cathy Zavala MD 05/06/22 1417 Signed By: <Electronically signed by Cathy Zavala MD> 05/06/22 1421 [facility] Work Phone: Reason for referral (narrative)* Diagnostic Procedure Only (Routine) - Closed Specialty Diagnoses / Procedures Referred By Contac t Referred To Contact XR IMAGING Diagnoses Radiculopathy, lumbar region Procedures XR LUMBAR LIMITED 2V AP/LAT RADEX SPINE LUMBOSACRAL 2/[place] [address] [place] [address] Xr Imaging Referral ID Status Reason Start Date Expiration Date V isits Requested Visits Authorized [id number] Closed Auto-Generate d Referral 01/15/2022 02/14/2023 1 1 [facility] for referral (narrative)* Diagnostic Procedure Only (Routine) - Pending Review Specialty Diagnoses / Procedures Referred By Contac t Referred To Contact XR IMAGING Diagnoses Lumbar radiculopathy Procedures XR LUMBAR LIMITED 2V AP/LAT RADEX SPINE LUMBOSACRAL 2/[place] [address] [place] [id number] Xr Imaging Referral ID Status Reason Start Date Expiration Date Visits Requested Visits Authorized [id number] Pending Review Auto-Generat ed Referral 02/21/2022 03/23/2023 1 1 [facility] for referral (narrative)* Reason OBESITY Diagnosis 1 Obesity (E66.9) Referral Organization [facility] Bryan Izaguirre Referring Provider First Name Jose Referring Provider Last Name Oberer Referring Provider Specialty Family Prac shlomo Referred Organization [facility] Referred Provider Rafael Holbrook Referred Address [address] [place] [address],[facility] F,[place], [place],[address] Referred Provider Specialty Internal Med icine Referral Priority Routine Located Within [facility] Other Reason for referral (narrative)* Consultation (Routine) - Authorized Specialty Diagnoses / Procedures Referred By Paula ibrahim Referred To Contact Cardiology Diagnoses Essential hypertension Procedures Follow Up In Cardiology Danisha Bran MD [address] [facility] [address] [place] [address] Danisha Bran MD [address] [facility] [address] [place] [address] Referral ID Status Reason Start Date Expiration Date V isits Requested Visits Authorized [id number] Authorized 08/28/2023 08/27/2024 1 1 [facility] Work Phone: Reason for visit Narrative* Diagnostic Procedure Only (Routine) - Closed Specialty Diagnoses / Procedures Referred By Paula ibrahim Referred To Contact XR IMAGING Diagnoses Radiculopathy, lumbar region Procedures XR LUMBAR LIMITED 2V AP/LAT RADEX SPINE LUMBOSACRAL 2/[place] [address] [place] [address] Xr Imaging Referral ID Status Reason Start Date Expiration Date V isits Requested Visits Authorized [id number] Closed Auto-Generate d Referral 01/15/2022 02/14/2023 1 1 [facility] for visit NarrativeSINUS INFECTION, Pharmacy: [facility], Pt states he's had sinus congestion for a week now. Sx have progressed to coughing/ congestion. Pt used OTC Benadryl w/ no relief. Denies taking an at home covid test. [employer] Other Summary Purpose Family History No Family History Records FoundUnknown Family Member Name Dates Details Family history of diabetes m ellitus: Mother(V18.0, Z83.3) Status:Active Family history of hypertensi on: Father(V17.49, Z82.49) Status:Active No pertinent family history: Sister, Brother(V49.89, Z78.9) Status:Active Relationship Condition Age at Onset Recorded Date/T larry Not Specified Hypertension Unknown Relationship Condition Age at Onset Recorded Date/T larry father Hypertension Unknown Diabetes mellitus Unknown Not Specified Malignant neoplasm Unknown Unknown Family Member Name Dates Details Family history of diabetes m ellitus: Mother(V18.0, Z83.3) Status:Active Family history of hypertensi on: Father(V17.49, Z82.49) Status:Active No pertinent family history: Sister, Brother(V49.89, Z78.9) Status:Active Unknown Family Member Name Dates Details Family history of diabetes m ellitus: Mother(V18.0, Z83.3) Status:Active Family history of hypertensi on: Father(V17.49, Z82.49) Status:Active No pertinent family history: Sister, Brother(V49.89, Z78.9) Status:Active Relationship Condition Age at Onset Recorded Date/T larry father Diabetes mellitus Unknown Hypertension Unknown Not Specified Diabetes mellitus Unknown Malignant neoplasm Unknown brother High blood cholesterol Unknown Advance Directives No Advanced Directives Records FoundDocuments on File Type Date 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 Advance Directive(s) 09/13/2021 12:58 PM Advance Directive(s) 08/16/2021 6:44 AM Documents on File Type Date Recorded 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 Advance Directive(s) 09/13/2021 12:58 PM Advance Directive(s) 08/16/2021 6:44 AM Documents on File Type Date Recorded 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 Advance Directive(s) 11/22/2021 12:09 PM Advance Directive(s) 09/13/2021 12:58 PM Advance Directive(s) 08/16/2021 6:44 AM Documents on File Type Date Recorded 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 Advance Directive(s) 11/22/2021 12:09 PM Advance Directive(s) 09/13/2021 12:58 PM Advance Directive(s) 08/16/2021 6:44 AM Documents on File Type Date Recorded 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 Advance Directive(s) 12/18/2021 12:58 PM Advance Directive(s) 11/22/2021 12:09 PM Advance Directive(s) 09/13/2021 12:58 PM Advance Directive(s) 08/16/2021 6:44 AM Documents on File Type Date Recorded 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 Advance Directive(s) 12/31/2021 7:53 AM Advance Directive(s) 12/18/2021 12:58 PM Advance Directive(s) 11/22/2021 12:09 PM Advance Directive(s) 09/13/2021 12:58 PM Advance Directive(s) 08/16/2021 6:44 AM Documents on File Type Date 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 Advance Directive(s) 12/31/2021 7:53 AM Advance Directive(s) 12/18/2021 12:58 PM Advance Directive(s) 11/22/2021 12:09 PM Advance Directive(s) 09/13/2021 12:58 PM Advance Directive(s) 08/16/2021 6:44 AM Advance Directive Response Recorded Date/ Time Advance Directives No February 06, 2018 8:27am Advance Directive Response Recorded Date/ Time Advance Directives No February 06, 2018 7:27am Advance Directive Response Recorded Date/ Time Advance Directives No August 06, 2023 9:20am Reason for Referral Reason please refer raimundo de la vega to [facility] for EMG bilateral upper extremity Diagnosis 1 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 [facility] [place],[address] Referred Provider Specialty Neurology Referral Priority Routine General Notes Anika Carter 08:06:12 AM >received today, holding until Dr Andino's note is locked Anika Carter 10/17/2022 08:27:34 AM >still holding, note not locked yet Reason * Waiting for appt to assess and treat Diagnosis 1 Left arm swelling (M 79.89) Referral Organization [facility] Bryan Izaguirre Referring Provider First Name Jose Referring Provider Last Name Oberer Referring Provider Specialty Family Prac shlomo Referred Organization [facility] pedics Referred Provider Parth Hdz Referred Address [address],[place],[address] Referred Provider Specialty Orthopedic S urgery Referral Priority Routine General Notes Jackie Mccoy 07:44:38 AM >referral received and faxed p2p successful per log Reason * FU 09/15 consult for bariatric surgery Diagnosis 1 Obesity, morbid, BMI 40.0-49.9 (E66.01) Referral Organization [facility] Izaguirre Referring Provider First Name Jose Referring Provider Last Name Oberer Referring Provider Specialty [facility] Prac shlomo Referred Organization [facility] Referred Address [address] [place], [place],[address] Referred Provider Specialty Surgery Referral Priority Routine General Notes Jackie Mccoy 12:24:57 PM > referral received and faxed to [facility] Jackie Mccoy 09/01/2022 11:04:50 AM >faxed letter to see if pt has been scheduled Jackie Mccoy 09/08/2022 07:49:29 AM >faxed letter to see if pt has been scheduled Jackie Mccoy 09/09/2022 01:37:50 PM >received fax, referral received, no appt scheduled, pt has not returned calls Specialty Diagnoses / Procedures Referred By Paula ibrahim Referred To Contact [facility] Diagnoses Lumbar pseudoarthrosis Procedures CONSULT TO PHYSICAL THERAPY PHYSICAL THERAPY EVALUATION HIGH COMPLEX 45 MINS Christine Gutierrez PA-C [address] [place] [address] [facility] [place] [address] [place] [address] Referral ID Status Reason Start Date Expiration Date Visits Requested Visits Authorized [id number] Pending Review Auto-Generat ed Referral 2 04/17/2023 1 1 Specialty Diagnoses / Procedures Referred By Contac t Referred To Contact CT IMAGING Diagnoses Acute bilateral low back pain with left-sided sciatica Procedures CT LUMBAR SPINE WO IVCON CT LUMBAR SPINE W/O CONTRAST MATERIAL Effie Beltran PA-C [address] [place] [address] Ct Imaging Referral ID Status Reason Start Date Expiration Date Visits Requested Visits Authorized [id number] Pending Review Auto-Generat ed Referral 03/20/2022 04/12/2023 1 1 Specialty Diagnoses / Procedures Referred By Contac t Referred To Contact [facility] Diagnoses Spondylolisthesis of lumbar region Procedures CONSULT TO PHYSICAL THERAPY PHYSICAL THERAPY EVALUATION HIGH COMPLEX 45 MINS Effie Beltran PA-C [address] [place] [address] [facility] [place] [address] [place] [address] Referral ID Status Reason Start Date Expiration Date Visits Requested Visits Authorized [id number] Pending Review Auto-Generat ed Referral 02/18/2022 02/18/2023 1 1 Reason LLQ pain Diagnosis 1 Right inguinal pain (R10.31) Referral Organization [facility] [place] Referring Provider First Name Jose Referring Provider Last Name Oberer Referring Provider Specialty Family Prac shlomo Referred Organization [facility] Referred Provider Ochoa Arango Referred Address ,[place],[address] Referred Provider Specialty Surgery Referral Priority Routine General Notes Merced Briseno 2020 04:09:03 PM >REFERRAL SENT Specialty Diagnoses / Procedures Referred By Contac t Referred To Contact Diagnoses Pre-op testing Procedures REFER TO PACC - PRE ANESTHESIA CONSULTATION CLINIC OFFICE/OUTPATIENT [facility] MDM 60-74 MINUTES Christine Gutierrez PA-C [address] [place] [address] Referral ID Status Reason Start Date Expiration Date Visits Requested Visits Authorized [id number] Authorized PCP Requested Referral 12/06/2021 12/05/2022 1 1 Specialty Diagnoses / Procedures Referred By Contac t Referred To Contact Pain Management Diagnoses Chronic bilateral low back pain without sciatica Procedures CONSULT TO PAIN MGT OFFICE/OUTPATIENT [facility] 60-74 MINUTES Venkatesh Moody PA-C [address] [place] [id number] Referral ID Status Reason Start Date Expiration Date Visits Requested Visits Authorized [id number] Authorized PCP Requested Referral 11/07/2021 11/06/2022 1 1 Chief Complaint and Reason for Visit Chief Complaint wound infection, janiya lucinations, htn wound infection, hallucinations wound infection, hallucinations Bactrim monitoring staph infection HTN deana-annual Chief Complaint Bactrim monitoring s taph infection HTN deana-annual M54.42 Chief Complaint deana-annual M54.42 B low back surgery FALL - SLURRED SPEACH Reason for Visit Chronic kidney disea se, stage 3 Dizziness Elevated blood pressure reading with diagnosis of hypertension Obstructive sleep apnea Repeated falls Slurred speech Chief Complaint deana-annual M54.42 B low back surgery FALL - SLURRED SPEACH Reason for Visit Atypical migraine Chronic kidney disease, stage 3 Dizziness Elevated blood pressure reading with diagnosis of hypertension Lumbar radicular pain Obstructive sleep apnea Postlaminectomy syndrome Repeated falls Sepsis Slurred speech Chief Complaint deana-annual M54.42 B low back surgery FALL - SLURRED SPEACH n18.30 Reason for Visit Atypical migraine Chronic kidney disease, stage 3 Dizziness Elevated blood pressure reading with diagnosis of hypertension Lumbar radicular pain Obstructive sleep apnea Postlaminectomy syndrome Repeated falls Sepsis Slurred speech Chief Complaint M54.42 FALL - SLURRED SPEACH n18.30 Right Patellar Clunk B low back surgery Right Patellar Clunk Reason for Visit Atypical migraine Chronic kidney disease, stage 3 Dizziness Elevated blood pressure reading with diagnosis of hypertension Lumbar radicular pain Obstructive sleep apnea Postlaminectomy syndrome Repeated falls Sepsis Slurred speech Chief Complaint M54.42 FALL - SLURRED SPEACH n18.30 Right Patellar Clunk B low back surgery Right Patellar Clunk Right Patellar Clunk Reason for Visit Atypical migraine Chronic kidney disease, stage 3 Dizziness Elevated blood pressure reading with diagnosis of hypertension Lumbar radicular pain Obstructive sleep apnea Postlaminectomy syndrome Repeated falls Sepsis Slurred speech Chief Complaint FALL - SLURRED SPEAC H n18.30 Right Patellar Clunk B low back surgery Right Patellar Clunk Right Patellar Clunk Obesity Reason for Visit Atypical migraine Chronic kidney disease, stage 3 Dizziness Elevated blood pressure reading with diagnosis of hypertension Lumbar radicular pain Obstructive sleep apnea Postlaminectomy syndrome Repeated falls Sepsis Slurred speech Chief Complaint Right Patellar Clunk Obesity left arm numbness/pain M54.2 R20.2 Chief Complaint Obesity left arm numbness/pain M54.2 R20.2 M25.552 Chief Complaint Obesity left arm numbness/pain M54.2 R20.2 M25.552 z79.899 e78.2 n19 G25.81 D64.9 Chief Complaint z79.899 e78.2 n19 G2 5.81 D64.9 M77.02 G56.22 Obesity labs Chief Complaint labs Obesity Sleep apnea annual follow up Chief Complaint labs Obesity Sleep apnea annual follow up R79.89/E23.[address] Wm F/U [address] Wm F/U Obesity fatty liver Chief Complaint Rd Wm F/U Obesity fatty liver R19.[address] Wm F/U Diarrhea fatty liver Sinus Infection R19.7 Obesity diahrrea diahrrea Reason for Visit Diarrhea Chief Complaint MARY JIMENEZ is being seen for an annual follow-up of.MARY JIMENEZ is being seen for a 3 month follow-up of. Additional Source Comments (unrecognized sect ion and content) No Status Records FoundNo Status Records FoundNo Status Records FoundNo Status Records FoundNo Status Records FoundNo Status Records FoundNo Status Records FoundNo Status Records FoundNo Status Records FoundNo Status Records Found INFORMATION SOURCE (unrecogn ized section and content) DATE CREATED AUTHOR 05/12/2020 [facility] DATE CREATED AUTHOR AUTHOR'S ORGANIZ ATION 04/02/2022 [facility] DATE CREATED AUTHOR AUTHOR'S ORGANIZ ATION 05/17/2022 [facility] DATE CREATED AUTHOR AUTHOR'S ORGANIZ ATION 07/22/2022 [facility] DATE CREATED AUTHOR AUTHOR'S ORGANIZ ATION 07/22/2022 [facility] DATE CREATED AUTHOR AUTHOR'S ORGANIZ ATION 12/09/2022 [facility] DATE CREATED AUTHOR AUTHOR'S ORGANIZ ATION 01/12/2023 [facility] DATE CREATED AUTHOR AUTHOR'S ORGANIZ ATION 06/01/2023 [facility] DATE CREATED AUTHOR AUTHOR'S ORGANIZ ATION 08/30/2023 [facility] DATE CREATED AUTHOR AUTHOR'S ORGANIZ ATION 08/31/2023 [facility] Source Comments (unrecognize d section and content) In the event this informatio n is protected by the Federal Confidentiality of Alcohol and Drug Abuse Patient Records regulations: The Federal rules restrict any use of the information to criminally investigate or prosecute any alcohol or drug abuse patient.[facility] the event this information is protected by the Federal Confidentiality of Alcohol and Drug Abuse Patient Records regulations: The Federal rules restrict any use of the information to criminally investigate or prosecute any alcohol or drug abuse patient.[facility] the event this information is protected by the Federal Confidentiality of Alcohol and Drug Abuse Patient Records regulations: The Federal rules restrict any use of the information to criminally investigate or prosecute any alcohol or drug abuse patient.[facility]onIn the event this information is protected by the Federal Confidentiality of Alcohol and Drug Abuse Patient Records regulations: The Federal rules restrict any use of the information to criminally investigate or prosecute any alcohol or drug abuse patient.[facility]onIn the event this information is protected by the Federal Confidentiality of Alcohol and Drug Abuse Patient Records regulations: The Federal rules restrict any use of the information to criminally investigate or prosecute any alcohol or drug abuse patient.[facility]onIn the event this information is protected by the Federal Confidentiality of Alcohol and Drug Abuse Patient Records regulations: The Federal rules restrict any use of the information to criminally investigate or prosecute any alcohol or drug abuse patient.[facility]onIn the event this information is protected by the Federal Confidentiality of Alcohol and Drug Abuse Patient Records regulations: The Federal rules restrict any use of the information to criminally investigate or prosecute any alcohol or drug abuse patient.[facility]onIn the event this information is protected by the Federal Confidentiality of Alcohol and Drug Abuse Patient Records regulations: The Federal rules restrict any use of the information to criminally investigate or prosecute any alcohol or drug abuse patient.[facility]onIn the event this information is protected by the Federal Confidentiality of Alcohol and Drug Abuse Patient Records regulations: The Federal rules restrict any use of the information to criminally investigate or prosecute any alcohol or drug abuse patient.[facility]onIn the event this information is protected by the Federal Confidentiality of Alcohol and Drug Abuse Patient Records regulations: The Federal rules restrict any use of the information to criminally investigate or prosecute any alcohol or drug abuse patient.[facility]onIn the event this information is protected by the Federal Confidentiality of Alcohol and Drug Abuse Patient Records regulations: The Federal rules restrict any use of the information to criminally investigate or prosecute any alcohol or drug abuse patient.[facility]onIn the event this information is protected by the Federal Confidentiality of Alcohol and Drug Abuse Patient Records regulations: The Federal rules restrict any use of the information to criminally investigate or prosecute any alcohol or drug abuse patient.[facility]onIn the event this information is protected by the Federal Confidentiality of Alcohol and Drug Abuse Patient Records regulations: The Federal rules restrict any use of the information to criminally investigate or prosecute any alcohol or drug abuse patient.[facility]onIn the event this information is protected by the Federal Confidentiality of Alcohol and Drug Abuse Patient Records regulations: The Federal rules restrict any use of the information to criminally investigate or prosecute any alcohol or drug abuse patient.[facility]onIn the event this information is protected by the Federal Confidentiality of Alcohol and Drug Abuse Patient Records regulations: The Federal rules restrict any use of the information to criminally investigate or prosecute any alcohol or drug abuse patient.[facility]In the event this information is protected by the Federal Confidentiality of Alcohol and Drug Abuse Patient Records regulations: The Federal rules restrict any use of the information to criminally investigate or prosecute any alcohol or drug abuse patient.[facility]onIn the event this information is protected by the Federal Confidentiality of Alcohol and Drug Abuse Patient Records regulations: The Federal rules restrict any use of the information to criminally investigate or prosecute any alcohol or drug abuse patient.[facility]onIn the event this information is protected by the Federal Confidentiality of Alcohol and Drug Abuse Patient Records regulations: The Federal rules restrict any use of the information to criminally investigate or prosecute any alcohol or drug abuse patient.[facility]onIn the event this information is protected by the Federal Confidentiality of Alcohol and Drug Abuse Patient Records regulations: The Federal rules restrict any use of the information to criminally investigate or prosecute any alcohol or drug abuse patient.[facility]onIn the event this information is protected by the Federal Confidentiality of Alcohol and Drug Abuse Patient Records regulations: The Federal rules restrict any use of the information to criminally investigate or prosecute any alcohol or drug abuse patient.[facility]onIn the event this information is protected by the Federal Confidentiality of Alcohol and Drug Abuse Patient Records regulations: The Federal rules restrict any use of the information to criminally investigate or prosecute any alcohol or drug abuse patient.[facility]onIn the event this information is protected by the Federal Confidentiality of Alcohol and Drug Abuse Patient Records regulations: The Federal rules restrict any use of the information to criminally investigate or prosecute any alcohol or drug abuse patient.[facility]onIn the event this information is protected by the Federal Confidentiality of Alcohol and Drug Abuse Patient Records regulations: The Federal rules restrict any use of the information to criminally investigate or prosecute any alcohol or drug abuse patient.[facility]onIn the event this information is protected by the Federal Confidentiality of Alcohol and Drug Abuse Patient Records regulations: The Federal rules restrict any use of the information to criminally investigate or prosecute any alcohol or drug abuse patient.[facility]onIn the event this information is protected by the Federal Confidentiality of Alcohol and Drug Abuse Patient Records regulations: The Federal rules restrict any use of the information to criminally investigate or prosecute any alcohol or drug abuse patient.[facility]onIn the event this information is protected by the Federal Confidentiality of Alcohol and Drug Abuse Patient Records regulations: The Federal rules restrict any use of the information to criminally investigate or prosecute any alcohol or drug abuse patient.[facility]onIn the event this information is protected by the Federal Confidentiality of Alcohol and Drug Abuse Patient Records regulations: The Federal rules restrict any use of the information to criminally investigate or prosecute any alcohol or drug abuse patient.[facility]onIn the event this information is protected by the Federal Confidentiality of Alcohol and Drug Abuse Patient Records regulations: The Federal rules restrict any use of the information to criminally investigate or prosecute any alcohol or drug abuse patient.[facility]onIn the event this information is protected by the Federal Confidentiality of Alcohol and Drug Abuse Patient Records regulations: The Federal rules restrict any use of the information to criminally investigate or prosecute any alcohol or drug abuse patient.[facility]onIn the event this information is protected by the Federal Confidentiality of Alcohol and Drug Abuse Patient Records regulations: The Federal rules restrict any use of the information to criminally investigate or prosecute any alcohol or drug abuse patient.[facility]onIn the event this information is protected by the Federal Confidentiality of Alcohol and Drug Abuse Patient Records regulations: The Federal rules restrict any use of the information to criminally investigate or prosecute any alcohol or drug abuse patient.[facility]onIn the event this information is protected by the Federal Confidentiality of Alcohol and Drug Abuse Patient Records regulations: The Federal rules restrict any use of the information to criminally investigate or prosecute any alcohol or drug abuse patient.[facility]onIn the event this information is protected by the Federal Confidentiality of Alcohol and Drug Abuse Patient Records regulations: The Federal rules restrict any use of the information to criminally investigate or prosecute any alcohol or drug abuse patient.[facility]onIn the event this information is protected by the Federal Confidentiality of Alcohol and Drug Abuse Patient Records regulations: The Federal rules restrict any use of the information to criminally investigate or prosecute any alcohol or drug abuse patient.[facility]onIn the event this information is protected by the Federal Confidentiality of Alcohol and Drug Abuse Patient Records regulations: The Federal rules restrict any use of the information to criminally investigate or prosecute any alcohol or drug abuse patient.[facility]onIn the event this information is protected by the Federal Confidentiality of Alcohol and Drug Abuse Patient Records regulations: The Federal rules restrict any use of the information to criminally investigate or prosecute any alcohol or drug abuse patient.[facility]onIn the event this information is protected by the Federal Confidentiality of Alcohol and Drug Abuse Patient Records regulations: The Federal rules restrict any use of the information to criminally investigate or prosecute any alcohol or drug abuse patient.[facility]onIn the event this information is protected by the Federal Confidentiality of Alcohol and Drug Abuse Patient Records regulations: The Federal rules restrict any use of the information to criminally investigate or prosecute any alcohol or drug abuse patient.[facility]onIn the event this information is protected by the Federal Confidentiality of Alcohol and Drug Abuse Patient Records regulations: The Federal rules restrict any use of the information to criminally investigate or prosecute any alcohol or drug abuse patient.[facility]onIn the event this information is protected by the Federal Confidentiality of Alcohol and Drug Abuse Patient Records regulations: The Federal rules restrict any use of the information to criminally investigate or prosecute any alcohol or drug abuse patient.[facility]onIn the event this information is protected by the Federal Confidentiality of Alcohol and Drug Abuse Patient Records regulations: The Federal rules restrict any use of the information to criminally investigate or prosecute any alcohol or drug abuse patient.[facility]onIn the event this information is protected by the Federal Confidentiality of Alcohol and Drug Abuse Patient Records regulations: The Federal rules restrict any use of the information to criminally investigate or prosecute any alcohol or drug abuse patient.[facility]onIn the event this information is protected by the Federal Confidentiality of Alcohol and Drug Abuse Patient Records regulations: The Federal rules restrict any use of the information to criminally investigate or prosecute any alcohol or drug abuse patient.[facility]onIn the event this information is protected by the Federal Confidentiality of Alcohol and Drug Abuse Patient Records regulations: The Federal rules restrict any use of the information to criminally investigate or prosecute any alcohol or drug abuse patient.[facility]onIn the event this information is protected by the Federal Confidentiality of Alcohol and Drug Abuse Patient Records regulations: The Federal rules restrict any use of the information to criminally investigate or prosecute any alcohol or drug abuse patient.[facility] Care Teams (unrecognized sec tion and content) Team Status: Active Member Role Status Dates Jose Oberer , DO Primary Care Provider Active Team Status: Inactive Member Role Status Dates Jose Oberer , DO Primary Care Provider Active Fernanda Graham NP Attending Provider Active Team Status: Active Member Role Status Dates Jose Oberer , DO Primary Care Provider, Attending Prov ider Active Team Status: Inactive Member Role Status Dates Jose Oberer , DO Primary Care Provider Active Rafael Holbrook MD Attending Provider Active Team Status: Inactive Member Role Status Dates Jose Oberer , DO Primary Care Provider, Attending Prov ider Active Se Feliz MD Referring Provider Active Team Status: Inactive Member Role Status Dates Jose Oberer , DO Primary Care Provider Active Olvin Andino , DO Attending Provider Active Team Status: Inactive Member Role Status Dates Jose Oberer , DO Primary Care Provider, Attending Prov ider Active Team Status: Inactive Member Role Status Dates Jose Oberer , DO Primary Care Provider Active Rafael Holley , DO Attending Provider Active Team Status: Inactive Member Role Status Dates Jose Oberer , DO Primary Care Provider Active Alejandro Loo , DO Emergency Provider Active Machine Sand Mixer Relationship Specialty Start Date End Date Jose Ray [address] [place], [place] [id number] PCP - General 02/04/10 Machine Sand Mixer Relationship Specialty Start Date End Date Jose Ray [address] [place], [place] [id number] PCP - General 02/04/10 Machine Sand Mixer Relationship Specialty Start Date End Date Jose Ray [address] [place], [place] [id number] PCP - General 02/04/10 Machine Sand Mixer Relationship Specialty Start Date End Date Jose Ray [address] [place], [place] [id number] PCP - General 02/04/10 Machine Sand Mixer Relationship Specialty Start Date End Date ObJose chen [address] [place], [place] [id number] PCP - General 02/04/10 Machine Sand Mixer Relationship Specialty Start Date End Date Jose Ray [address] [place], [place] [id number] PCP - General 02/04/10 Machine Sand Mixer Relationship Specialty Start Date End Date ObJose chen [address] [place] [address] [place] [address] PCP - General 02/04/10 Machine Sand Mixer Relationship Specialty [place] [address] PCP - General 02/04/10 Machine Sand Mixer Relationship Specialty Start [place] [address] PCP - General 02/04/10 Machine Sand Mixer Relationship Specialty Start [place] [address] PCP - General 02/04/10 Machine Sand Mixer Relationship Specialty [place] [address] PCP - General 02/04/10 Machine Sand Mixer Relationship Specialty Start Date End Date [facility] [place] [address] PCP - General 02/04/10 Machine Sand Mixer Relationship Specialty Start Date End Date Jose Ray [facility] [place] [address] PCP - General 02/04/10 Machine Sand Mixer Relationship Specialty Start Date End Date [facility] [place] [address] PCP - General 02/04/10 Machine Sand Mixer Relationship Specialty Start Date End Date Jose Ray [address] [place] [address], [place] [address] PCP - General 02/04/10 Machine Sand Mixer Relationship Specialty Start Date End Date Jose Ray [address] [place] [address] PCP - General 02/04/10 Machine Sand Mixer Relationship Specialty Start Date End Date Jose Ray [address] [place] [address] PCP - General 02/04/10 Machine Sand Mixer Relationship Specialty Start Date End Date Jose Ray [address] [place], [place] [id number] PCP - General 02/04/10 Machine Sand Mixer Relationship Specialty Start Date End Date ObJose chen [address] [place] [address] PCP - General 02/04/10 Machine Sand Mixer Relationship Specialty Start Date End Date ObJose chen [address] [place] [address] PCP - General 02/04/10 Team Status: Inactive Member Role Status Dates Fernanda Garham NP Other Provider Active Jose Ray , DO Primary Care Provider, Other Provider Active Loyda Steele MD Attending Provider Active Rosey Dubose MD Other Provider Active Team Status: Inactive Member Role Status Dates PHYSICIAN NO FAMILY Primary Care Provider Active Effie Beltran PA-C Attending Provider Active Team Status: Inactive Member Role Status Dates Yobany Nelson MD Attending Provider Active Team Status: Inactive Member Role Status Dates Jose Ray , DO Primary Care Provider Active Yobany Nelson MD Attending Provider Active Machine Sand Mixer Relationship Specialty Start Date End Date Jose Ray [address] [place] [address] PCP - General 02/04/10 Machine Sand Mixer Relationship Specialty Start Date End Date Jose Ray [address] [place] [address] PCP - General 02/04/10 Machine Sand Mixer Relationship Specialty Start Date End Date Jose Ray [address] [place] [address] PCP - General 02/04/10 Team Status: Inactive Member Role Status Dates Jose Oberer , DO Primary Care Provider Active Effie Beltran PA-C Attending Provider Active Machine Sand Mixer Relationship Specialty Start Date End Date Jose Ray [address] [place] [address] PCP - General 02/04/10 Machine Sand Mixer Relationship Specialty Start Date End Date Jose Ray [address] [place] [address] PCP - General 02/04/10 Team Status: Active Member Role Status Dates Jose Oberer , DO Primary Care Provider Active Amarilis Jameson PA-C Emergency Provider Active Cathy Zavala MD Admit Provider, Attending Provider Active Team Status: Active Member Role Status Dates Jose Oberer , DO Primary Care Provider Active Loyda Steele MD Attending Provider Active Team Status: Inactive Member Role Status Dates Jose Oberer , DO Primary Care Provider Active Amarilis Jameson PA-C Emergency Provider Active Cathy Zavala MD Admit Provider, Attending Provider Active Fabiola Montemayor Other Provider Active Christine Bryson , DO Other Provider Active Se Feliz MD Other Provider Active Cornel Carson , DO Other Provider Active Marci Calrk ANP- Other Provider Active Ortega Haskins , DO Other Provider Active Kristi Huerta APRN Other Provider Active Xavi Smith MD Other Provider Active Team Status: Active Member Role Status Dates Jose Oberer , DO Primary Care Provider Active Ortega Haskins , DO Attending Provider Active Team Status: Inactive Member Role Status Dates Jose Oberer , DO Primary Care Provider Active Ortega Haskins , DO Attending Provider Active Team Status: Inactive Member Role Status Dates Jose Oberer , DO Primary Care Provider Active Cathy Zavala MD Attending Provider Active Team Status: Inactive Member Role Status Dates Jose Oberer , DO Primary Care Provider Active Rafael Holley , DO Attending Provider Active Loyda Steele MD Other Provider Active Team Status: Inactive Member Role Status Dates Jose Oberer , DO Primary Care Provider Active Loyda Steele MD Attending Provider Active Team Status: Inactive Member Role Status Dates Jose Ray DO Primary Care Provider Active Rosey Dubose MD Attending Provider Active Team Status: Inactive Member Role Status Dates Raquel Fitt - Refer , [facility] Attending Provider Active Start: April 30, 2023 End: April 30, 2023 Team Status: Inactive Member Role Status Dates Jose Whyter DO Attending Provider Active Start : May 01, 2023 End: May 01, 2023 Team Status: Inactive Member Role Status Dates Raquel Fitt - Refer , [facility] Attending Provider Active Start: June 18, 2023 End: June 18, 2023 Team Status: Inactive Member Role Status Dates Raquel Fitt - Refer , [facility] Attending Provider Active Start: July 07, 2023 End: July 07, 2023 Team Status: Inactive Member Role Status Dates Rafael Holbrook MD Attending Provider Active Start: July 13, 2023 End: July 13, 2023 Team Status: Active Member Role Status Dates Jose Ray DO Primary Care Provide r, Attending Provider Active Start: July 22, 2023 Team Status: Inactive Member Role Status Dates Jose Ray DO Primary Care Provider Active St art: July 28, 2023 End: July 28, 2023 John Foster MD Attending Provider Active Start: July 28, 2023 End: July 28, 2023 Team Status: Inactive Member Role Status Dates Jose Ray DO Primary Care Provider Active St art: July 30, 2023 End: July 30, 2023 John Foster MD Attending Provider Active Start: July 30, 2023 End: July 30, 2023 Team Status: Inactive Member Role Status Dates John Foster MD Attending Provider Active Start: July 16, 2023 End: July 16, 2023 Team Status: Inactive Member Role Status Dates Jose Ray DO Attending Provider Active Start : July 30, 2023 End: July 30, 2023 Team Status: Active Member Role Status Dates Jose Ray DO Primary Care Provide r, Attending Provider Active Start: August 06, 2023 Team Status: Inactive Member Role Status Dates Jose Ray DO Primary Care Provider Active St art: August 19, 2023 End: August 19, 2023 John Foster MD Attending Provider Active Start: August 19, 2023 End: August 19, 2023 Team Status: Active Member Role Status Dates Jose Ray DO Primary Care Provider Active St art: August 19, 2023 John Foster MD Attending Prov ider, Other Provider Active Start: August 19, 2023 Machine Sand Mixer Relationship Specialty Start Date End Date BonifacioJose DO [facility] PCP - General 05/09/20 Reason for Visit (unrecogniz ed section and content) Reason Comments Follow Up Reason Comments New Patient Reason Onset Date Comments CoPat Stop 10/24/2021 Reason Comments Post Op Sx: 08/16/2021, 2021 Reason Comments Patient Question Reason Comments Patient Education Specialty Diagnoses / Procedures Referred By Contac t Referred To Contact Diagnoses Pre-op testing Procedures REFER TO [facility]ACC - PRE ANESTHESIA CONSULTATION CLINIC OFFICE/OUTPATIENT NEW HIGH MDM 60-74 MINUTES Christine Gutierrez PA-C [address] [place] [address] Referral ID Status Reason Start Date Expiration Date V isits Requested Visits Authorized [id number] Closed PCP Requested Referral 12/06/2021 12/05/2022 1 1 Reason Onset Date Comments Refill Request 12/17/2021 Reason Comments Home Care Reason Comments Post Op Radiculopathy, lumba r region Reason Onset Date Comments Forms 02/10/2022 Reason Comments Established Patient Alteration in skin i ntegrity related to surgical incision Reason Comments Orders Reason Comments Wound Check Reason Onset Date Comments Refill Request 03/05/2022 Reason Comments Lab report Reason Comments creatinine level Reason Onset Date Comments Refill Request 03/12/2022 Reason Comments Received Outside Medical Records Reason Comments Lab Orders Reason Onset Date Comments Wound Care 04/01/2022 Reason Comments Established Patient Wound check Reason Comments Forms POC from [facility] equesting signature Reason Comments Preparations For Procedures Reason Comments Follow-up 6mo Goals (unrecognized section and content) Goals may be documented in a n alternate section FOR RECORDS PERTAINING TO PATIENTS WHO ARE OR HAVE BEEN ENROLLED IN A CHEMICAL DEPENDENCY/SUBSTANCEABUSE PROGRAM, SOME INFORMATION MAY BE OMITTED. This clinical summary was aggregated from multiple sources. Caution should be exercised in using it in the provision of clinical care. This summary normalizes information from multiple sources, and as a consequence, information in this document may materially change the coding, format and clinical context of patient data. In addition, data may be omitted in some cases. CLINICAL DECISIONS SHOULD BE BASED ON THE PRIMARY CLINICAL RECORDS. [facility] [address] [facility]. provides no warranty or guarantee of the accuracy or completeness of information in this document.
[2023-09-21 07:26] VITALS: BP 120/74; PULSE 97; RESP 16; TEMP 36.2; O2SAT 95
[2023-09-21 08:26] VITALS: PULSE 95; RESP 18; O2SAT 95
[2023-09-21] MEDS: BUPIVACAINE HCL 0.25% PF 25 MG/10 ML VIAL INJ (08:28)
[2023-09-21] MEDS: IOHEXOL 240 MG/ML - 10 ML VIAL 24 MG INJ (08:28)
[2023-09-21] MEDS: 0.9 % SODIUM CHLORIDE 10 ML INJ (08:28)
[2023-09-21] MEDS: TRIAMCINOLONE ACETONIDE 40 MG/ML VIAL 80 MG INJ (08:29)
[2023-09-21] MEDS: LIDOCAINE HCL 2% PF 100 MG/5 ML VIAL 3 ML INJ (08:29)
--- NOTE | 2023-09-21 08:29 | W.PM.PROCNOT ---
Date of procedure: 09/21/23 Pre-op diagnosis: Lumbar stenosis with neurogenic claudication Post-op diagnosis: same as pre-op Procedure: Procedure: Bilateral L5-S1 transforaminal epidural steroid injection Medications: Bupivacaine 0.25% 2cc, lidocaine 2% 1cc, kenalog 80mg The patient was seen and examined in the preoperative holding area.? Informed consent was obtained and placed on the chart.? Patient was brought to the medical procedure unit and placed in the prone position where a timeout was completed verifying the correct patient, procedure site, position, and planned special equipment using sterile aseptic technique.? Under direct fluoroscopic visualization a 25-gauge Quincke tipped spinal needle was advanced at level left L5-S1 to the designated neural foramen where contrast dye was injected to show adequate spread.? There was no evidence of vascular or adverse uptake.? Epidural spread was appreciated.? The above-mentioned injectate was then placed in a 1.5 mL aliquot preceded by negative aspiration.? The needle was removed. The same procedure, at the same level, was completed on the opposite side. ? Patient was taken to the postprocedural recovery area and monitored for an appropriate length of time before found suitable for discharge in the accompaniment of a responsible adult. Anesthesia: Local Surgeon: Steven Uriarte Pathology: none sent Condition: stable Disposition: no change
[2023-09-21 08:30] VITALS: PULSE 79; RESP 18; O2SAT 94
[2023-09-21 08:32] VITALS: BP 85/50
--- NOTE | 2023-09-21 09:11 | PC.NURSE ---
recheck BP 104/57
== END 2023-09-21 08:37 | disposition home or self-care (01) ==
PROVIDERS: PCP Family Medicine; Visit Provider Anesthesiology
DX: M48.062 Spinal stenosis, lumbar region with neurogenic claudication (principal)
CPT/HCPCS: 64483; Q9966

== ENCOUNTER 2023-10-15 09:08 | Outpatient (OUT) | payer MEDICARE, SELFPAY ==
--- NOTE | 2023-10-15 09:59 | P.CN_ITS ---
Consult Note: HPI Data of Consult Patient: known to practice within the last 3 years Requesting Physician: Justyna Martinez NP Primary Care Provider: JOSE RAY Consult Narrative Reason for consult: f/u Narrative: Richard Urena a pleasant 63 year old male presents for evaluation and management of chronic low back pain with radiculopathy. Pain today 7/10 increases to 10/10 with activity standing walking and lifting, improves with sitting. Patient finding mild to moderate benefit from current medication regimen. Patient recently underwent bilateral L5-S1 TFESI injection with 100% improvement in right sided back and leg pain for 2 days, no improvement on left side, no improvement ongoing. Continues sword PT at home without benefit. cc:: CC: Justyna Martinez NP Review of Systems ROS Status of ROS 10 or more systems reviewed and unremark able except as noted in history and below Musculoskeletal Reports: back pain PFSH PFSH Medical History Heartburn ?R12 - Heartburn (ICD-10) Low back pain ?M54.50 - Low back pain, unspecified (ICD-10) Numbness and tingling ?R20.0 - Anesthesia of skin (ICD-10) ?R20.2 - Paresthesia of skin (ICD-10) Anxiety ?F41.9 - Anxiety disorder, unspecified (ICD-10) Stroke ?I63.9 - Cerebral infarction, unspecified (ICD-10) Acid reflux ?K21.9 - Gastro-esophageal reflux disease without esophagitis (ICD-10) Enlarged prostate ?N40.0 - Benign prostatic hyperplasia without lower urinary tract symptoms (ICD-10) Kidney stone ?N20.0 - Calculus of kidney (ICD-10) Sleep apnea ?G47.30 - Sleep apnea, unspecified (ICD-10) High cholesterol ?E78.00 - Pure hypercholesterolemia, unspecified (ICD-10) Hypertension ?I10 - Essential (primary) hypertension (ICD-10) Surgical History S/P lumbar spine operation ?Z98.890 - Other specified postprocedural states (ICD-10) S/P shoulder replacement ?Z96.619 - Presence of unspecified artificial shoulder joint (ICD-10) S/P carpal tunnel release ?Z98.890 - Other specified postprocedural states (ICD-10) Hx of total knee arthroplasty ?Z96.659 - Presence of unspecified artificial knee joint (ICD-10) Meds Home Medications and Allergies Home Medications ?Medication ?Instructions ?Recorded ?Confirmed ?Type atorvastatin 80 mg tablet 80 mg PO QDAY 12/18/22 09/21/23 History baclofen 20 mg tablet 20 mg PO TID PRN spasms 12/18/22 09/21/23 History biotin 1 mg capsule 1 mg PO DAILY 12/18/22 09/21/23 History clopidogrel 75 mg tablet 75 mg PO QDAY 12/18/22 09/21/23 History dicyclomine 20 mg tablet 20 mg PO QID PRN abdominal pain 12/18/22 09/21/23 History doxazosin 4 mg tablet 4 mg PO QDAY 12/18/22 09/21/23 History duloxetine 30 mg capsule,delayed 60 mg PO BID 12/18/22 09/21/23 History release (Cymbalta) finasteride 5 mg tablet 5 mg PO QDAY 12/18/22 09/21/23 History fluticasone propionate 50 intranasal QAM 12/18/22 History mcg/actuation nasal spray,suspension furosemide 40 mg tablet 40 mg PO QDAY 12/18/22 09/21/23 History hydrocodone 5 mg-acetaminophen 325 tab PO TID PRN pain 12/18/22 History mg tablet metoprolol succinate 50 mg 50 mg PO QDAY 12/18/22 09/21/23 History tablet,extended release 24 hr multivitamin (Daily Multi-Vitamin 1 tab PO DAILY 12/18/22 09/21/23 History tablet) nortriptyline 50 mg capsule 50 mg PO QDAY 12/18/22 09/21/23 History omeprazole 40 mg capsule,delayed 40 mg PO QDAY 12/18/22 02/23/23 History release potassium chloride 20 mEq 20 meq PO QDAY 12/18/22 09/21/23 History tablet,extended release(part/cryst) (Klor-Con M) pregabalin 200 mg capsule 200 mg PO TID 12/18/22 09/21/23 History promethazine 25 mg tablet 12.5 mg PO QDAY 12/18/22 09/21/23 History quetiapine 25 mg tablet 25 mg PO BID 12/18/22 09/21/23 History telmisartan 80 mg tablet (Micardis) 80 mg PO DAILY 12/18/22 09/21/23 History testosterone cypionate 200 mg/mL 200 mg IM Q14D 12/18/22 09/21/23 History intramuscular oil valacyclovir 500 mg tablet 500 mg PO Q12H PRN unknown 12/18/22 09/21/23 History hydrocodone 5 mg-acetaminophen 325 1 tab PO TID PRN pain #80 tabs 02/25/23 09/21/23 Rx mg tablet hydrocodone 5 mg-acetaminophen 325 1 tab PO TID PRN pain #80 tabs 09/28/23 Rx mg tablet Allergies Allergy/AdvReac Type Severity Reaction Status Date / Time Penicillins Allergy Intermediate Swelling Verified 09/21/23 07:24 of Lip/Tongue/Throat latex Allergy Mild ITCHING Verified 09/21/23 07:24 Exam Constitutional Documenting provider has reviewed patient's vital signs: yes Common normals: no apparent distress, oriented x3, healthy appearing, alert and well nourished General appearance: cooperative HENMT Common normals: normocephalic, hearing grossly normal bilaterally and moist oral mucous membranes Head and scalp: normocephalic Eye Common normals: PERRL Pupil: PERRL Neck & C-Spine Common normals: full ROM General: normal visual inspection Chest Common normals: inspection of chest normal Respiratory Common normals: normal respiratory effort, no retractions and no use of accessory muscles Back & Pelvis Lumbar spine/lower back: ROM limited, pain with ROM, paraspinal muscle tenderness and straight leg raise negative bilaterally Other: pain near fusion site and radiating into left and right buttock. no redness warmth. tender to touch decreased sensation on bilateral L5-S1 dermatomal patterns strength 5/5 in BLE reports numbness and tingling to left foot greater than right Extremity Common normals: normal to inspection and full ROM Neuro Common normals: oriented x3, CN's II-XII intact bilaterally, moves all extremities, no focal motor deficits, no sensory deficits noted and deep tendon reflexes 2+ bilaterally Sensorium/orientation: alert Motor exam: strength 5/5 throughout and no movement abnormalities noted Other: no numbness tingling or weakness Psych Common normals: mental status grossly normal, thought process normal, cooperative, affect normal, speech normal and activity/motor behavior normal Speech: normal speech Thought process: normal thought process Results Additional Findings Additional findings: If on a controlled substance or opioids, I have checked an [place] report on this patient and there are no aberrancies noted in the prescribing history.??If on a controlled substance or opioid a drug screen was completed and reviewed within the last year, and if there has not been a drug screen completed we ordered one today to monitor higher risk, state monitored pain medication use. As part of providing excellent, safe, comprehensive care, the following was com pleted at our patient's visit: 1. A medication reconciliation and review to ensure accurate knowledge of current/active medications, including asking our patients to inform us about any dynz-lja-pjaetxg medications or herbal remedies/nutritional supplements/alternative remedies. 2. A review to specifically ensure our patients have had annual screening for screening for depression, screening for tobacco use, and screening for unhealthy alcohol use. For concerning screenings had a discussion with the patient, provided patient education, and recommended follow-up with primary care provider when appropriate. If patient noted with a risk of falling, they received education on strength, gait, and balance training to prevent future risk of falling. Assessment and Plan Assessment and Plan (1) Lumbar radiculopathy: (2) Lumbar spondylosis: (3) Obesity: (4) Myofascial pain: (5) Encounter for long-term use of opiate analgesic: Assessment and Plan: I feel these medications are improving the patient's quality of life and allow them to tolerate activities of daily living as well as participate in recreational activity.? The patient does not report intolerable side effects. The patient is NOT opioid naive and non-pharmacologic and non-opioid treatment has failed to significantly relieve the patient's pain and improve functionality. The patient has a diagnosis that is related to a somatic or visceral pain etiology. ? ?? I reviewed with the patient the potential risks and side effects with the use of? opioid medications including but not limited to respiratory depression,? sedation, and even . I verified the patient has access to naloxone should? these effects occur. I advised the patient to avoid the use of any other? sedation substances including alcohol, THC, and benzodiazepines while? taking opioid medications due to the risk of compounding side effects and? detrimental outcomes. I reviewed the [employer]IBB[employer] CLEANER, pain treatment agreement, urine? drug screen, and opioid start talking forms. The patient was advised to let? their family know they had Naloxone in case they would need to administer? the medication.? ?? A drug screen was completed within the last year, and no aberrancies were noted regarding their use of controlled substances. The patient understands they are subject to the terms and conditions of the pain contract that they have signed. ? ?? I have checked an [place] report on this patient today and there are no aberrancies noted in the prescribing history.? (6) Failed back syndrome: Plan unfortunately due to lack of response to prior injection therapy and most recent injections I continue to recommend SCS trial. Patient would like to think about this and watch the videos previously provided. 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
== END 2023-10-15 09:09 | disposition home or self-care (01) ==
LOC: PM 09:08
PROVIDERS: PCP Family Medicine; Visit Provider Nurse Practitioner
DX: M47.26 Other spondylosis with radiculopathy, lumbar region (principal); E66.9 Obesity, unspecified; M79.18 Myalgia, other site; Z79.899 Other long term (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 therapy
CPT/HCPCS: G0463

== ENCOUNTER 2024-01-13 08:49 | Outpatient (OUT) | payer MEDICARE, SELFPAY ==
--- NOTE | 2024-01-13 09:19 | P.CN_ITS ---
Consult Note: HPI Data of Consult Patient: known to practice within the last 3 years Requesting Physician: Justyna Martinez NP Primary Care Provider: JOSE RAY Consult Narrative Reason for consult: f/u Narrative: Richard Urena a pleasant 63 year old male presents for evaluation and management of chronic low back pain with radiculopathy. Pain today 8/10 increases to 10/10 with activity standing walking and lifting, improves with sitting. Patient finding mild to mild benefit from current medication regimen. Continues sword PT at home without benefit. Patient has had 3 falls without serious injury since December 10, since then has reported intermittent weakness of left leg. Patient denies loss of bladder, continues to have intermittent bowel loss. continues to f/u with neurology. Patient reports his pain has never felt like this before, reporting constant skin twisting burning sensations and balloons at the bottom of his feet. cc:: CC: Justyna Martinez NP Review of Systems ROS Status of ROS 10 or more systems reviewed and unremark able except as noted in history and below Musculoskeletal Reports: back pain, extremity pain and muscle weakness PFSH PFSH Medical History Heartburn ?R12 - Heartburn (ICD-10) Low back pain ?M54.50 - Low back pain, unspecified (ICD-10) Numbness and tingling ?R20.0 - Anesthesia of skin (ICD-10) ?R20.2 - Paresthesia of skin (ICD-10) Anxiety ?F41.9 - Anxiety disorder, unspecified (ICD-10) Stroke ?I63.9 - Cerebral infarction, unspecified (ICD-10) Acid reflux ?K21.9 - Gastro-esophageal reflux disease without esophagitis (ICD-10) Enlarged prostate ?N40.0 - Benign prostatic hyperplasia without lower urinary tract symptoms (ICD-10) Kidney stone ?N20.0 - Calculus of kidney (ICD-10) Sleep apnea ?G47.30 - Sleep apnea, unspecified (ICD-10) High cholesterol ?E78.00 - Pure hypercholesterolemia, unspecified (ICD-10) Hypertension ?I10 - Essential (primary) hypertension (ICD-10) Surgical History S/P lumbar spine operation ?Z98.890 - Other specified postprocedural states (ICD-10) S/P shoulder replacement ?Z96.619 - Presence of unspecified artificial shoulder joint (ICD-10) S/P carpal tunnel release ?Z98.890 - Other specified postprocedural states (ICD-10) Hx of total knee arthroplasty ?Z96.659 - Presence of unspecified artificial knee joint (ICD-10) Meds Home Medications and Allergies Home Medications ?Medication ?Instructions ?Recorded ?Confirmed ?Type atorvastatin 80 mg tablet 80 mg PO QDAY 12/18/22 09/21/23 History baclofen 20 mg tablet 20 mg PO .qhs PRN spasms 12/18/22 10/15/23 History biotin 1 mg capsule 1 mg PO DAILY 12/18/22 09/21/23 History clopidogrel 75 mg tablet 75 mg PO QDAY 12/18/22 09/21/23 History dicyclomine 20 mg tablet 20 mg PO QID PRN abdominal pain 12/18/22 09/21/23 History doxazosin 4 mg tablet 4 mg PO QDAY 12/18/22 09/21/23 History duloxetine 30 mg capsule,delayed 60 mg PO BID 12/18/22 09/21/23 History release (Cymbalta) finasteride 5 mg tablet 5 mg PO QDAY 12/18/22 09/21/23 History fluticasone propionate 50 intranasal QAM 12/18/22 History mcg/actuation nasal spray,suspension furosemide 40 mg tablet 40 mg PO QDAY 12/18/22 09/21/23 History metoprolol succinate 50 mg 50 mg PO QDAY 12/18/22 09/21/23 History tablet,extended release 24 hr multivitamin (Daily Multi-Vitamin 1 tab PO DAILY 12/18/22 09/21/23 History tablet) nortriptyline 50 mg capsule 50 mg PO QDAY 12/18/22 09/21/23 History omeprazole 40 mg capsule,delayed 40 mg PO QDAY 12/18/22 02/23/23 History release potassium chloride 20 mEq 20 meq PO QDAY 12/18/22 09/21/23 History tablet,extended release(part/cryst) (Klor-Con M) pregabalin 200 mg capsule 200 mg PO TID 12/18/22 09/21/23 History promethazine 25 mg tablet 12.5 mg PO QDAY 12/18/22 09/21/23 History quetiapine 25 mg tablet 25 mg PO BID 12/18/22 09/21/23 History telmisartan 80 mg tablet (Micardis) 80 mg PO DAILY 12/18/22 09/21/23 History testosterone cypionate 200 mg/mL 200 mg IM Q14D 12/18/22 09/21/23 History intramuscular oil valacyclovir 500 mg tablet 500 mg PO Q12H PRN unknown 12/18/22 09/21/23 History hydrocodone 5 mg-acetaminophen 325 1 tab PO TID PRN pain #80 tabs 09/28/23 Rx mg tablet urxsns-vpldirem-ejckcks 18,000 cap PO 10/15/23 History 6,000-19,000-30,000 unit capsule,delayed rel (Creon) semaglutide 0.25 mg or 0.5 mg (2 0.25 mg subcut QWEEK 10/15/23 10/15/23 History mg/3 mL) subcutaneous pen injector (Ozempic) hydrocodone 5 mg-acetaminophen 325 1 tab PO TID PRN pain #80 tabs 10/29/23 Rx mg tablet hydrocodone 5 mg-acetaminophen 325 1 tab PO TID PRN pain #80 tabs 12/01/23 Rx mg tablet hydrocodone 5 mg-acetaminophen 325 See Rx Instructions .Route 12/29/23 Rx mg tablet .COMPLEX PRN pain #18 tabs hydrocodone 5 mg-acetaminophen 325 See Rx Instructions .Route 12/29/23 Rx mg tablet .COMPLEX PRN pain #80 tabs Allergies Allergy/AdvReac Type Severity Reaction Status Date / Time Penicillins Allergy Intermediate Swelling Verified 09/21/23 07:24 of Lip/Tongue/Throat latex Allergy Mild ITCHING Verified 09/21/23 07:24 Exam Constitutional Documenting provider has reviewed patient's vital signs: yes Common normals: no apparent distress, oriented x3, healthy appearing, alert and well nourished General appearance: cooperative HENMT Common normals: normocephalic, hearing grossly normal bilaterally and moist oral mucous membranes Head and scalp: normocephalic Eye Common normals: PERRL Pupil: PERRL Neck & C-Spine Common normals: full ROM General: normal visual inspection Chest Common normals: inspection of chest normal Respiratory Common normals: normal respiratory effort, no retractions and no use of accessory muscles Back & Pelvis Lumbar spine/lower back: ROM limited, pain with ROM, lumbar spinal tenderness, paraspinal muscle tenderness, paraspinal muscle spasm and straight leg raise positive right Other: pain near fusion site and radiating into left and right buttock. no redness warmth. tender to touch decreased sensation on bilateral L5-S1 dermatomal patterns strength 4/5 in BLE Extremity Common normals: normal to inspection and full ROM Neuro Common normals: oriented x3, CN's II-XII intact bilaterally, moves all extremities, no focal motor deficits, no sensory deficits noted and deep tendon reflexes 2+ bilaterally Sensorium/orientation: alert Gait (neuro): antalgic Motor exam: no movement abnormalities noted and strength abnormal Other: no numbness tingling or weakness Psych Common normals: mental status grossly normal, thought process normal, cooperative, affect normal, speech normal and activity/motor behavior normal Speech: normal speech Thought process: normal thought process Results Additional Findings Additional findings: If on a controlled substance or opioids, I have checked an [place] report on this patient and there are no aberrancies noted in the prescribing history.??If on a controlled substance or opioid a drug screen was completed and reviewed within the last year, and if there has not been a drug screen completed we ordered one today to monitor higher risk, state monitored pain medication use. As part of providing excellent, safe, comprehensive care, the following was completed at our patient's visit: 1. A medication reconciliation and review to ensure accurate knowledge of current/active medications, including asking our patients to inform us about any vkup-rfv-fyvlafy medications or herbal remedies/nutritional son pplements/alternative remedies. 2. A review to specifically ensure our patients have had annual screening for screening for depression, screening for tobacco use, and screening for unhealthy alcohol use. For concerning screenings had a discussion with the patient, provided patient education, and recommended follow-up with primary care provider when appropriate. If patient noted with a risk of falling, they received education on strength, gait, and balance training to prevent future risk of falling. Assessment and Plan Assessment and Plan (1) Lumbar radiculopathy: (2) Failed back syndrome: (3) Encounter for long-term use of opiate analgesic: Assessment and Plan: I feel these medications are improving the patient's quality of life and allow them to tolerate activities of daily living as well as participate in recreational activity.? The patient does not report intolerable side effects. The patient is NOT opioid naive and non-pharmacologic and non-opioid treatment has failed to significantly relieve the patient's pain and improve functionality. The patient has a diagnosis that is related to a somatic or visceral pain etiology. ? ?? I reviewed with the patient the potential risks and side effects with the use of? opioid medications including but not limited to respiratory depression,? sedation, and even . I verified the patient has access to naloxone should? these effects occur. I advised the patient to avoid the use of any other? sedation substances including alcohol, THC, and benzodiazepines while? taking opioid medications due to the risk of compounding side effects and? detrimental outcomes. I reviewed the PSYCHIATRY PHYSICIAN, pain treatment agreement, urine? drug screen, and opioid start talking forms. The patient was advised to let? their family know they had Naloxone in case they would need to administer? the medication.? ?? A drug screen was completed within the last year, and no aberrancies were noted regarding their use of controlled substances. The patient understands they are subject to the terms and conditions of the pain contract that they have signed. ? ?? I have checked an [place]AR[place] report on this patient today and there are no aberrancies noted in the prescribing history.? (4) Myofascial pain: (5) Lumbar spondylosis: Plan update lumbar xray with flexion to evaluate lumbar stability update lumbar mri with and without contrast to evaluate lumbar radiculopathy, worsening of chronic moderate to severe pain, weakness of BLE. 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
== END 2024-01-13 08:50 | disposition home or self-care (01) ==
LOC: PM 08:50
PROVIDERS: PCP Family Medicine; Visit Provider Nurse Practitioner
DX: M54.16 Radiculopathy, lumbar region (principal); M96.1 Postlaminectomy syndrome, not elsewhere classified; Z79.891 Long term (current) use of opiate analgesic; M79.18 Myalgia, other site; M47.816 Spondylosis without myelopathy or radiculopathy, lumbar region
CPT/HCPCS: G0463

== ENCOUNTER 2024-02-24 07:50 | Outpatient (OUT) | payer MEDICARE, SELFPAY ==
--- NOTE | 2024-02-24 08:14 | P.CN_ITS ---
Consult Note: HPI Data of Consult Patient: known to practice within the last 3 years Requesting Physician: Justyna Martinez NP Primary Care Provider: JOSE RAY Consult Narrative Reason for consult: f/u Narrative: Richard Urena a pleasant 63 year old male presents for evaluation and management of chronic low back pain with radiculopathy. Pain today 6/10 increases to 10/10 with activity standing walking and lifting, improves with sitting. Patient finding mild to mild benefit from current medication regimen. Has completed sword PT at home greater than 6 weeks without improvement. Patient has had 3 falls without serious injury since December 10, since then has reported intermittent weakness of left leg. Patient denies loss of bladder, continues to have intermittent bowel loss. continues to f/u with neurology. Patient recently underwent lumbar xray and lumbar MRI with and without contrast, results below. Patient has found no improvement with increase in baclofen to 10mg BID and 20mg HS, reported significant improvement with medrol dose pack but since he has completed his pain has returned to baseline. cc:: CC: Justyna Martinez NP Review of Systems 2 ROS0 Status of ROS 10 or more systems reviewed and unremark able except as noted in history and below Musculoskeletal Reports: back pain PFSH PFSH Medical History Heartburn ?R12 - Heartburn (ICD-10) Low back pain ?M54.50 - Low back pain, unspecified (ICD-10) Numbness and tingling ?R20.0 - Anesthesia of skin (ICD-10) ?R20.2 - Paresthesia of skin (ICD-10) Anxiety ?F41.9 - Anxiety disorder, unspecified (ICD-10) Stroke ?I63.9 - Cerebral infarction, unspecified (ICD-10) Acid reflux ?K21.9 - Gastro-esophageal reflux disease without esophagitis (ICD-10) Enlarged prostate ?N40.0 - Benign prostatic hyperplasia without lower urinary tract symptoms (ICD-10) Kidney stone ?N20.0 - Calculus of kidney (ICD-10) Sleep apnea ?G47.30 - Sleep apnea, unspecified (ICD-10) High cholesterol ?E78.00 - Pure hypercholesterolemia, unspecified (ICD-10) Hypertension ?I10 - Essential (primary) hypertension (ICD-10) Surgical History S/P lumbar spine operation ?Z98.890 - Other specified postprocedural states (ICD-10) S/P shoulder replacement ?Z96.619 - Presence of unspecified artificial shoulder joint (ICD-10) S/P carpal tunnel release ?Z98.890 - Other specified postprocedural states (ICD-10) Hx of total knee arthroplasty ?Z96.659 - Presence of unspecified artificial knee joint (ICD-10) Meds Home Medications and Allergies Home Medications ?Medication ?Instructions ?Recorded ?Confirmed ?Type atorvastatin 80 mg tablet 80 mg PO QDAY 12/18/22 09/21/23 History baclofen 20 mg tablet 20 mg PO .qhs PRN spasms 12/18/22 10/15/23 History biotin 1 mg capsule 1 mg PO DAILY 12/18/22 09/21/23 History clopidogrel 75 mg tablet 75 mg PO QDAY 12/18/22 09/21/23 History dicyclomine 20 mg tablet 20 mg PO QID PRN abdominal pain 12/18/22 09/21/23 History doxazosin 4 mg tablet 4 mg PO QDAY 12/18/22 09/21/23 History duloxetine 30 mg capsule,delayed 60 mg PO BID 12/18/22 09/21/23 History release (Cymbalta) finasteride 5 mg tablet 5 mg PO QDAY 12/18/22 09/21/23 History fluticasone propionate 50 intranasal QAM 12/18/22 History mcg/actuation nasal spray,suspension furosemide 40 mg tablet 40 mg PO QDAY 12/18/22 09/21/23 History metoprolol succinate 50 mg 50 mg PO QDAY 12/18/22 09/21/23 History tablet,extended release 24 hr multivitamin (Daily Multi-Vitamin 1 tab PO DAILY 12/18/22 09/21/23 History tablet) nortriptyline 50 mg capsule 50 mg PO QDAY 12/18/22 09/21/23 History omeprazole 40 mg capsule,delayed 40 mg PO QDAY 12/18/22 02/23/23 History release potassium chloride 20 mEq 20 meq PO QDAY 12/18/22 09/21/23 History tablet,extended release(part/cryst) (Klor-Con M) pregabalin 200 mg capsule 200 mg PO TID 12/18/22 09/21/23 History promethazine 25 mg tablet 12.5 mg PO QDAY 12/18/22 09/21/23 History quetiapine 25 mg tablet 25 mg PO BID 12/18/22 09/21/23 History telmisartan 80 mg tablet (Micardis) 80 mg PO DAILY 12/18/22 09/21/23 History testosterone cypionate 200 mg/mL 200 mg IM Q14D 12/18/22 09/21/23 History intramuscular oil valacyclovir 500 mg tablet 500 mg PO Q12H PRN unknown 12/18/22 09/21/23 History hydrocodone 5 mg-acetaminophen 325 1 tab PO TID PRN pain #80 tabs 09/28/23 Rx mg tablet jedqam-gwgokzft-ahvnjof 18,000 cap PO 10/15/23 History 6,000-19,000-30,000 unit capsule,delayed rel (Creon) semaglutide 0.25 mg or 0.5 mg (2 0.25 mg subcut QWEEK 10/15/23 10/15/23 History mg/3 mL) subcutaneous pen injector (Ozempic) hydrocodone 5 mg-acetaminophen 325 1 tab PO TID PRN pain #80 tabs 10/29/23 Rx mg tablet hydrocodone 5 mg-acetaminophen 325 1 tab PO TID PRN pain #80 tabs 12/01/23 Rx mg tablet hydrocodone 5 mg-acetaminophen 325 See Rx Instructions .Route 12/29/23 Rx mg tablet .COMPLEX PRN pain #18 tabs hydrocodone 5 mg-acetaminophen 325 See Rx Instructions .Route 12/29/23 Rx mg tablet .COMPLEX PRN pain #80 tabs hydrocodone 5 mg-acetaminophen 325 See Rx Instructions .Route 02/03/24 Rx mg tablet .COMPLEX PRN pain #80 tabs Allergies Allergy/AdvReac Type Severity Reaction Status Date / Time Penicillins Allergy Intermediate Swelling Verified 09/21/23 07:24 of Lip/Tongue/Throat latex Allergy Mild ITCHING Verified 09/21/23 07:24 Exam Constitutional Documenting provider has reviewed patient's vital signs: yes Common normals: no apparent distress, oriented x3, healthy appearing, alert and well nourished General appearance: cooperative HENMT Common normals: normocephalic, hearing grossly normal bilaterally and moist oral mucous membranes Head and scalp: normocephalic Eye Common normals: PERRL Pupil: PERRL Neck & C-Spine Common normals: full ROM General: normal visual inspection Chest Common normals: inspection of chest normal Respiratory Common normals: normal respiratory effort, no retractions and no use of accessory muscles Back & Pelvis Lumbar spine/lower back: ROM limited, pain with ROM, lumbar spinal tenderness, paraspinal muscle tenderness, paraspinal muscle spasm and straight leg raise negative bilaterally Other: pain near fusion site and radiating into left and right buttock. no redness warmth. tender to touch sensation intact BLE strength 5/5 in BLE, improved from prior significant pain as noted below Back image (male): 2 1. significant pain and tenderness to touch. upon flexion and rotation pain radiates into left buttocks Extremity Common normals: normal to inspection and full ROM Neuro Common normals: oriented x3, CN's II-XII intact bilaterally, moves all extremities, no focal motor deficits, no sensory deficits noted and deep tendon reflexes 2+ bilaterally Sensorium/orientation: alert Gait (neuro): antalgic Motor exam: strength 5/5 throughout and no movement abnormalities noted Other: no numbness tingling or weakness Psych Common normals: mental status grossly normal, thought process normal, cooperative, affect normal, speech normal and activity/motor behavior normal Speech: normal speech Thought process: normal thought process Results Imaging lumbar mri: Attestation: I have reviewed the pertinent imaging results. Radiologist's impression: L1-2 mild diffuse disc bulging with small broad based central to left subarticular disc protrusion migrating cephalad, and mild hypertrophic facet changes which results in borderline central canal stenosis and left lateral recess narrowing. no significant neural foraminal narrowing or significant disc extrusion. L2-3 small to moderate sized broad based left foraminal disc protrusion that results in mild to moderate neural foraminal narrowing. no significant central spinal stenosis or right neural foraminal narrowing L3-4 moderate hypertrophic facet changes without central spinal stenosis or neural foraminal narrowing L4-S1 previous posterior and anterior fusion with intervertebral disc implants, no central spinal stenosis or neural foraminal narrowing. . . . ................................................................................ ............................................................................... Additional Findings Additional findings: If on a controlled substance or opioids, I have checked an [place] report on this patient and there are no aberrancies noted in the prescribing history.??If on a controlled substance or opioid a drug screen was completed and reviewed within the last year, and if there has not been a drug screen completed we ordered one today to monitor higher risk, state monitored pain medication use. As part of providing excellent, safe, comprehensive care, the following was completed at our patient's visit: 1. A medication reconciliation and review to ensure accurate knowledge of current/active medications, including asking our patients to inform us about any lohh-nqx-ycwrkki medications or herbal remedies/nutritional supplements/alternative remedies. 2. A review to specifically ensure our patients have had annual screening for screening for depression, screening for tobacco use, and screening for unhealthy alcohol use. For concerning screenings had a discussion with the patient, provided patient education, and recommended follow-up with primary care provider when appropriate. If patient noted with a risk of falling, they received education on strength, gait, and balance training to prevent future risk of falling. Assessment and Plan Assessment and Plan (1) Lumbar radiculopathy: (2) Failed back syndrome: (3) Encounter for long-term use of opiate analgesic: Assessment and Plan: I feel these medications are improving the patient's quality of life and allow them to tolerate activities of daily living as well as participate in recreational activity.? The patient does not report intolerable side effects. The patient is NOT opioid naive and non-pharmacologic and non-opioid treatment has failed to significantly relieve the patient's pain and improve functionality. The patient has a diagnosis that is related to a somatic or visceral pain etiology. ? ?? I reviewed with the patient the potential risks and side effects with the use of? opioid medications including but not limited to respiratory depression,? sedation, and even . I verified the patient has access to naloxone should? these effects occur. I advised the patient to avoid the use of any other? sedation substances including alcohol, THC, and benzodiazepines while? taking opioid medications due to the risk of compounding side effects and? detrimental outcomes. I reviewed the CHEF INSTRUCTOR, pain treatment agreement, urine? drug screen, and opioid start talking forms. The patient was advised to let? their family know they had Naloxone in case they would need to administer? the medication.? ?? A drug screen was completed within the last year, and no aberrancies were noted regarding their use of controlled substances. The patient understands they are subject to the terms and conditions of the pain contract that they have signed. ? ?? I have checked an [place] report on this patient today and there are no aberrancies noted in the prescribing history.? (4) Myofascial pain: (5) Lumbar spondylosis: Plan L1-2 RAKESH under fluoroscopy with Dr Brewer risks vs benefits reviewed stop baclofen start methocarbamol 500mg TID PRN pain/spasms, has failed flexeril in the past continue hydrocodone-acetaminophen 5-325mg BID-TID PRN moderate to severe pain, 80 tabs/month not interested in Spinal cord stimulator revision/trial continue f/u with neurology f/u 2 weeks after RAKESH
== END 2024-02-24 07:51 | disposition home or self-care (01) ==
LOC: PM 07:50
PROVIDERS: PCP Family Medicine; Visit Provider Nurse Practitioner
DX: M54.16 Radiculopathy, lumbar region (principal); M96.1 Postlaminectomy syndrome, not elsewhere classified; Z79.891 Long term (current) use of opiate analgesic; M79.18 Myalgia, other site; M47.816 Spondylosis without myelopathy or radiculopathy, lumbar region
CPT/HCPCS: G0463

== ENCOUNTER 2024-03-15 10:11 | Day surgery (SDC) | payer MEDICARE, SELFPAY ==
[2024-03-15 10:51] VITALS: BP 122/79; PULSE 80; TEMP 36.8; O2SAT 95
[2024-03-15 11:16] VITALS: BP 146/91; PULSE 68; O2SAT 96
[2024-03-15 11:20] VITALS: BP 137/86; PULSE 80; O2SAT 91
[2024-03-15] MEDS: BUPIVACAINE HCL 0.25% PF 25 MG/10 ML VIAL 2 ML INJ (11:23)
[2024-03-15] MEDS: 0.9 % SODIUM CHLORIDE 10 ML SYRINGE - SALINE FLUSH 2 ML INJ (11:23)
--- NOTE | 2024-03-15 11:23 | P.ON_ITS ---
Date of procedure: 03/15/24 Pre-op diagnosis: Lumbar radiculopathy Post-op diagnosis: same as pre-op Procedure: Lumbar 1/2 Epidural Steroid Injection Under fluoroscopic guidance Immediate complications none Solution used for injection: Marcaine 0.25% 2mL, 2cc Normal saline, Depo-Medrol 80mg Omnipaque 3 mL Anesthesia local 2% lidocaine up to 4ml Timeout process compliant After informed consent obtained. Patient brought to the procedure room placed in the prone position. Skin overlying the area was prepped and draped in a sterile fashion using betadine. 25 gauge needle used to raise a skin wheel with local anesthetic over the target area identified under fluoroscopy. A 17 gauge Touhy needle Was inserted over the anesthetized area and directed towards the inter- space under fluoroscopic guidance. Epidural space was identified with loss of resistance technique to air. Needle Tip placement confirmed with injection of contrast solution in AP and Lateral views. Steroid solution was then injected. Anesthesia: Local Surgeon: Luis Antonio Brewer Condition: stable
[2024-03-15] MEDS: LIDOCAINE HCL 2% 400 MG/20 ML MDV 3 ML INJ (11:24)
[2024-03-15] MEDS: IOHEXOL 240 MG/ML - 10 ML VIAL 24 MG INJ (11:24)
[2024-03-15] MEDS: METHYLPREDNISOLONE ACETATE 80 MG/ML VIAL INJ (11:24)
== END 2024-03-15 11:26 | disposition home or self-care (01) ==
LOC: SURGOUT 10:12
PROVIDERS: PCP Family Medicine; Visit Provider Anesthesiology Pain Medicine
DX: M54.16 Radiculopathy, lumbar region (principal)
CPT/HCPCS: 62323; J0665; J1010; Q9966

== ENCOUNTER 2024-03-24 11:35 | Outpatient (OUT) | payer MEDICARE, SELFPAY ==
--- NOTE | 2024-03-24 12:14 | PM.CN ---
Consult Note: HPI Data of Consult Patient: known to practice within the last 3 years Requesting Physician: Justyna Martinez NP Primary Care Provider: JOSE RAY Consult Narrative Reason for consult: f/u Narrative: Richard Urena a pleasant 63 year old male presents for evaluation and management of chronic low back pain with radiculopathy. Pain today 7.5/10 increases to 10/10 with activity standing walking and lifting, improves with sitting. Patient finding mild to mild benefit from current medication regimen. Has completed sword PT at home greater than 6 weeks without improvement. Patient has had 4+ falls without serious injury since December 10, since then has reported intermittent weakness of left leg. Patient denies loss of bladder, continues to have intermittent bowel loss. continues to f/u with neurology. Patient recently underwent lumbar xray and lumbar MRI with and without contrast, results below. recently underwent L1-2 RAKESH with 50% improvement for 1 day. no ongoing relief. patient finding benefit to lidocaine patch and robaxin 500mg TID without side effects. cc:: CC: Justyna Martinez NP Review of Systems ROS Status of ROS 10 or more systems reviewed and unremarkable except as noted in history and below Musculoskeletal Reports: back pain and extremity pain PFSH PFSH Medical History Heartburn ?R12 - Heartburn (ICD-10) Low back pain ?M54.50 - Low back pain, unspecified (ICD-10) Numbness and tingling ?R20.0 - Anesthesia of skin (ICD-10) ?R20.2 - Paresthesia of skin (ICD-10) Anxiety ?F41.9 - Anxiety disorder, unspecified (ICD-10) Stroke ?I63.9 - Cerebral infarction, unspecified (ICD-10) Acid reflux ?K21.9 - Gastro-esophageal reflux disease without esophagitis (ICD-10) Enlarged prostate ?N40.0 - Benign prostatic hyperplasia without lower urinary tract symptoms (ICD-10) Kidney stone ?N20.0 - Calculus of kidney (ICD-10) Sleep apnea ?G47.30 - Sleep apnea, unspecified (ICD-10) High cholesterol ?E78.00 - Pure hypercholesterolemia, unspecified (ICD-10) Hypertension ?I10 - Essential (primary) hypertension (ICD-10) Surgical History S/P lumbar spine operation ?Z98.890 - Other specified postprocedural states (ICD-10) S/P shoulder replacement ?Z96.619 - Presence of unspecified artificial shoulder joint (ICD-10) S/P carpal tunnel release ?Z98.890 - Other specified postprocedural states (ICD-10) Hx of total knee arthroplasty ?Z96.659 - Presence of unspecified artificial knee joint (ICD-10) Meds Home Medications and Allergies Home Medications ?Medication ?Instructions ?Recorded ?Confirmed ?Type atorvastatin 80 mg tablet 80 mg PO QDAY 12/18/22 03/15/24 History baclofen 20 mg tablet 20 mg PO .qhs PRN spasms 12/18/22 03/15/24 History biotin 1 mg capsule 1 mg PO DAILY 12/18/22 03/15/24 History clopidogrel 75 mg tablet 75 mg PO QDAY 12/18/22 03/15/24 History dicyclomine 20 mg tablet 20 mg PO QID PRN abdominal pain 12/18/22 03/15/24 History doxazosin 4 mg tablet 4 mg PO QDAY 12/18/22 03/15/24 History duloxetine 30 mg capsule,delayed 60 mg PO BID 12/18/22 03/15/24 History release (Cymbalta) finasteride 5 mg tablet 5 mg PO QDAY 12/18/22 03/15/24 History fluticasone propionate 50 intranasal QAM 12/18/22 History mcg/actuation nasal spray,suspension furosemide 40 mg tablet 40 mg PO QDAY 12/18/22 03/15/24 History metoprolol succinate 50 mg 50 mg PO QDAY 12/18/22 03/15/24 History tablet,extended release 24 hr multivitamin (Daily Multi-Vitamin 1 tab PO DAILY 12/18/22 03/15/24 History tablet) nortriptyline 50 mg capsule 50 mg PO QDAY 12/18/22 03/15/24 History omeprazole 40 mg capsule,delayed 40 mg PO QDAY 12/18/22 02/23/23 History release potassium chloride 20 mEq 20 meq PO QDAY 12/18/22 03/15/24 History tablet,extended release(part/cryst) (Klor-Con M) pregabalin 200 mg capsule 200 mg PO TID 12/18/22 03/15/24 History promethazine 25 mg tablet 12.5 mg PO QDAY 12/18/22 03/15/24 History telmisartan 80 mg tablet (Micardis) 80 mg PO DAILY 12/18/22 03/15/24 History testosterone cypionate 200 mg/mL 200 mg IM Q14D 12/18/22 03/15/24 History intramuscular oil valacyclovir 500 mg tablet 500 mg PO Q12H PRN unknown 12/18/22 03/15/24 History hydrocodone 5 mg-acetaminophen 325 1 tab PO TID PRN pain #80 tabs 09/28/23 03/15/24 Rx mg tablet imcaqp-etoesqyb-mtkzmcu 18,000 cap PO 10/15/23 History 6,000-19,000-30,000 unit capsule,delayed rel (Creon) semaglutide 0.25 mg or 0.5 mg (2 0.25 mg subcut QWEEK 10/15/23 03/15/24 History mg/3 mL) subcutaneous pen injector (Ozempic) diazepam 10 mg tablet 10 mg PO 03/15/24 History Allergies Allergy/AdvReac Type Severity Reaction Status Date / Time Penicillins Allergy Intermediate Swelling Verified 03/15/24 10:45 of Lip/Tongue/Throat latex Allergy Mild ITCHING Verified 03/15/24 10:45 Exam Constitutional Documenting provider has reviewed patient's vital signs: yes Common normals: no apparent distress, oriented x3, healthy appearing, alert and well nourished General appearance: cooperative [facility] Common normals: normocephalic, hearing grossly normal bilaterally and moist oral mucous membranes Head and scalp: normocephalic Eye Common normals: PERRL Pupil: PERRL Neck & C-Spine Common normals: full ROM General: normal visual inspection Chest Common normals: inspection of chest normal Respiratory Common normals: normal respiratory effort, no retractions and no use of accessory muscles Back & Pelvis Lumbar spine/lower back: ROM limited, pain with ROM, lumbar spinal tenderness, paraspinal muscle tenderness, paraspinal muscle spasm and straight leg raise negative bilaterally Other: pain near fusion site and radiating into left and right buttock. no redness warmth. tender to touch sensation intact BLE, strength 4/5 in LLE 5/5 in RLE significant pain as noted below Back image (male): 1. 2. 3. 4. Extremity Common normals: normal to inspection and full ROM Neuro Common normals: oriented x3, CN's II-XII intact bilaterally, moves all extremities, no focal motor deficits, no sensory deficits noted and deep tendon reflexes 2+ bilaterally Sensorium/orientation: alert Gait (neuro): antalgic Motor exam: strength 5/5 throughout and no movement abnormalities noted Other: no numbness tingling or weakness Psych Common normals: mental status grossly normal, thought process normal, cooperative, affect normal, speech normal and activity/motor behavior normal Speech: normal speech Thought process: normal thought process Results Additional Findings Additional findings: If on a controlled substance or opioids, I have checked an [place] report on this patient and there are no aberrancies noted in the prescribing history.??If on a controlled substance or opioid a drug screen was completed and reviewed within the last year, and if there has not been a drug screen completed we ordered one today to monitor higher risk, state monitored pain medication use. As part of providing excellent, safe, comprehensive care, the following was completed at our patient's visit: 1. A medication reconciliation and review to ensure accurate knowledge of current/active medications, including asking our patients to inform us about any wssv-nou-nhnkzyf medications or herbal remedies/nutritional supplements/alternative remedies. 2. A review to specifically ensure our patients have had annual screening for screening for depression, screening for tobacco use, and screening for unhealthy alcohol use. For concerning screenings had a discussion with the patient, provided patient education, and recommended follow-up with primary care provider when appropriate. If patient noted with a risk of falling, they received education on strength, gait, and balance training to prevent future risk of falling. Assessment and Plan Assessment and Plan (1) Lumbar radiculopathy: (2) Failed back syndrome: (3) Encounter for long-term use of opiate analgesic: Assessment and Plan: I feel these medications are improving the patient's quality of life and allow them to tolerate activities of daily living as well as participate in recreational activity.? The patient does not report intolerable side effects. The patient is NOT opioid naive and non-pharmacologic and non-opioid treatment has failed to significantly relieve the patient's pain and improve functionality. The patient has a diagnosis that is related to a somatic or visceral pain etiology. ? ?? I reviewed with the patient the potential risks and side effects with the use of? opioid medications including but not limited to respiratory depression,? sedation, and even . I verified the patient has access to naloxone should? these effects occur. I advised the patient to avoid the use of any other? sedation substances including alcohol, THC, and benzodiazepines while? taking opioid medications due to the risk of compounding side effects and? detrimental outcomes. I reviewed the CASH REGISTER SERVICER, pain treatment agreement, urine? drug screen, and opioid start talking forms. The patient was advised to let? their family know they had Naloxone in case they would need to administer? the medication.? ?? A drug screen was completed within the last year, and no aberrancies were noted regarding their use of controlled substances. The patient understands they are subject to the terms and conditions of the pain contract that they have signed. ? ?? I have checked an [place] report on this patient today and there are no aberrancies noted in the prescribing history.? (4) Myofascial pain: (5) Lumbar spondylosis: Plan refer back to Dr Darren HAYDEN at [facility] for evaluation return to office for bilateral paralumbar TPI injection increase methocarbamol [id number] TID PRN pain/spasms, has failed baclofen and flexeril in the past increase hydrocodone-acetaminophen 7.5-325mg BID-TID PRN moderate to severe pain not interested in Spinal cord stimulator revision/trial continue f/u with neurology f/u 2 weeks after RAKESH
== END 2024-03-24 11:36 | disposition home or self-care (01) ==
LOC: PM 11:35
PROVIDERS: PCP Family Medicine; Visit Provider Nurse Practitioner
DX: M54.16 Radiculopathy, lumbar region (principal); M96.1 Postlaminectomy syndrome, not elsewhere classified; Z79.891 Long term (current) use of opiate analgesic; M79.18 Myalgia, other site; M47.816 Spondylosis without myelopathy or radiculopathy, lumbar region
CPT/HCPCS: G0463

== ENCOUNTER 2024-03-29 11:23 | Outpatient (OUT) | payer MEDICARE, SELFPAY ==
--- NOTE | 2024-03-29 | CONS_ITS ---
PROCEDURE DATE: 03/29/2024 TO: Socrates Valdovinos D.O. PROCEDURE: Left erector spinae trigger point injection at L5. PREOPERATIVE DIAGNOSIS: Pain secondary to myalgia/spasm of the left erector spinae, most significant at L5. POSTOPERATIVE DIAGNOSIS: Pain secondary to myalgia/spasm of the left erector spinae, most significant at L5. SOLUTION USED FOR INJECTION: 2 mL of 2% lidocaine, 2 mL of 0.25% Marcaine and 10 mg of Kenalog, total of 5 mL, and 3.5 mL used for the injection at the site. IMMEDIATE COMPLICATIONS: None. PROCEDURE: After informed consent was obtained from the patient, placed in the flexed forward position. Skin overlying the area was prepped with alcohol. A 25 gauge 1 ?? needle was inserted over the left erector spinae muscle at the L5 level. Needle tip advanced until there was a mild twitch response. No indication of intravascular or intraneural needle tip placement. 3.5 mL of solution was injected in divided doses. No indication of intravascular or intraneural needle tip injection was noted. Post-op needle was removed. The patient left after meeting criteria. MTDD
== END 2024-03-29 11:24 | disposition home or self-care (01) ==
LOC: PM 11:24
PROVIDERS: PCP Family Medicine; Visit Provider Nurse Practitioner
DX: M79.18 Myalgia, other site (principal)
CPT/HCPCS: 20552; J0665; J3301

== ENCOUNTER 2024-07-07 12:26 | Outpatient (OUT) | payer MEDICARE, SELFPAY ==
--- NOTE | 2024-07-07 13:00 | P.CN_ITS ---
Consult Note: HPI Data of Consult Patient: known to practice within the last 3 years Requesting Physician: Justyna Martinez NP Primary Care Provider: JOSE RAY Consult Narrative Reason for consult: f/u Narrative: Richard Urena a pleasant 63 year old male presents for evaluation and management of chronic low back pain with radiculopathy. Pain today 7.5/10 increases to 10/10 with activity standing walking and lifting, improves with sitting. Patient finding mild to mild benefit from current medication regimen. Has completed sword PT at home greater than 6 weeks without improvement. Patient has had 8+ falls without serious injury since December 10, since then has reported intermittent weakness of left leg. Patient denies loss of bladder, continues to have intermittent bowel loss. continues to f/u with neurology and neurosugery. patient finding benefit to lidocaine patch and robaxin 500mg TID without side effects. over the last two weeks pt has noticed increase in myofascial pain and spasms. cc:: CC: Justyna Martinez NP Review of Systems 2 ROS0 Status of ROS 10 or more systems reviewed and unremark able except as noted in history and below Musculoskeletal Reports: back pain and extremity pain PFSH [facility], LAT[facility] Medical History Heartburn ?R12 - Heartburn (ICD-10) Low back pain ?M54.50 - Low back pain, unspecified (ICD-10) Numbness and tingling ?R20.0 - Anesthesia of skin (ICD-10) ?R20.2 - Paresthesia of skin (ICD-10) Anxiety ?F41.9 - Anxiety disorder, unspecified (ICD-10) Stroke ?I63.9 - Cerebral infarction, unspecified (ICD-10) Acid reflux ?K21.9 - Gastro-esophageal reflux disease without esophagitis (ICD-10) Enlarged prostate ?N40.0 - Benign prostatic hyperplasia without lower urinary tract symptoms (ICD-10) Kidney stone ?N20.0 - Calculus of kidney (ICD-10) Sleep apnea ?G47.30 - Sleep apnea, unspecified (ICD-10) High cholesterol ?E78.00 - Pure hypercholesterolemia, unspecified (ICD-10) Hypertension ?I10 - Essential (primary) hypertension (ICD-10) Surgical History S/P lumbar spine operation ?Z98.890 - Other specified postprocedural states (ICD-10) S/P shoulder replacement ?Z96.619 - Presence of unspecified artificial shoulder joint (ICD-10) S/P carpal tunnel release ?Z98.890 - Other specified postprocedural states (ICD-10) Hx of total knee arthroplasty ?Z96.659 - Presence of unspecified artificial knee joint (ICD-10) Meds Home Medications and Allergies Home Medications ?Medication ?Instructions ?Recorded ?Confirmed ?Type atorvastatin 80 mg tablet 80 mg PO QDAY 12/18/22 03/15/24 History baclofen 20 mg tablet 20 mg PO .qhs PRN spasms 12/18/22 03/15/24 History biotin 1 mg capsule 1 mg PO DAILY 12/18/22 03/15/24 History clopidogrel 75 mg tablet 75 mg PO QDAY 12/18/22 03/15/24 History dicyclomine 20 mg tablet 20 mg PO QID PRN abdominal pain 12/18/22 03/15/24 History doxazosin 4 mg tablet 4 mg PO QDAY 12/18/22 03/15/24 History duloxetine 30 mg capsule,delayed 60 mg PO BID 12/18/22 03/15/24 History release (Cymbalta) finasteride 5 mg tablet 5 mg PO QDAY 12/18/22 03/15/24 History fluticasone propionate 50 intranasal QAM 12/18/22 History mcg/actuation nasal spray,suspension furosemide 40 mg tablet 40 mg PO QDAY 12/18/22 03/15/24 History metoprolol succinate 50 mg 50 mg PO QDAY 12/18/22 03/15/24 History tablet,extended release 24 hr multivitamin (Daily Multi-Vitamin 1 tab PO DAILY 12/18/22 03/15/24 History tablet) nortriptyline 50 mg capsule 50 mg PO QDAY 12/18/22 03/15/24 History omeprazole 40 mg capsule,delayed 40 mg PO QDAY 12/18/22 02/23/23 History release potassium chloride 20 mEq 20 meq PO QDAY 12/18/22 03/15/24 History tablet,extended release(part/cryst) (Klor-Con M) pregabalin 200 mg capsule 200 mg PO TID 12/18/22 03/15/24 History promethazine 25 mg tablet 12.5 mg PO QDAY 12/18/22 03/15/24 History telmisartan 80 mg tablet (Micardis) 80 mg PO DAILY 12/18/22 03/15/24 History testosterone cypionate 200 mg/mL 200 mg IM Q14D 12/18/22 03/15/24 History intramuscular oil valacyclovir 500 mg tablet 500 mg PO Q12H PRN unknown 12/18/22 03/15/24 History hydrocodone 5 mg-acetaminophen 325 1 tab PO TID PRN pain #80 tabs 09/28/23 03/15/24 Rx mg tablet wvwojz-hyrvysnp-sqmqndr 18,000 cap PO 10/15/23 History 6,000-19,000-30,000 unit capsule,delayed rel (Creon) semaglutide 0.25 mg or 0.5 mg (2 0.25 mg subcut QWEEK 10/15/23 03/15/24 History mg/3 mL) subcutaneous pen injector (Ozempic) diazepam 10 mg tablet 10 mg PO 03/15/24 History hydrocodone 7.5 mg-acetaminophen 1 tab PO Q8H PRN pain #90 tabs 03/29/24 Rx 325 mg tablet methocarbamol 500 mg tablet See Rx Instructions .Route 03/29/24 Rx .COMPLEX #180 tabs hydrocodone 7.5 mg-acetaminophen 1 tab PO TID PRN pain #90 tabs 05/03/24 Rx 325 mg tablet hydrocodone 7.5 mg-acetaminophen 1 tab PO TID PRN pain #90 tabs 05/30/24 Rx 325 mg tablet hydrocodone 7.5 mg-acetaminophen 1 tab PO TID PRN pain #90 tabs 06/30/24 Rx 325 mg tablet Allergies Allergy/AdvReac Type Severity Reaction Status Date / Time Penicillins Allergy Intermediate Swelling Verified 03/15/24 10:45 of Lip/Tongue/Throat latex Allergy Mild ITCHING Verified 03/15/24 10:45 Exam Constitutional Documenting provider has reviewed patient's vital signs: yes Common normals: no apparent distress, oriented x3, healthy appearing, alert and well nourished General appearance: cooperative HENMT Common normals: normocephalic, hearing grossly normal bilaterally and moist oral mucous membranes Head and scalp: normocephalic Eye Common normals: PERRL Pupil: PERRL Neck & C-Spine Common normals: full ROM General: normal visual inspection Chest Common normals: inspection of chest normal Respiratory Common normals: normal respiratory effort, no retractions and no use of accessory muscles Back & Pelvis Lumbar spine/lower back: ROM limited, pain with ROM, lumbar spinal tenderness, paraspinal muscle tenderness, paraspinal muscle spasm and straight leg raise negative bilaterally Other: sensation intact BLE, strength 4/5 in LLE 5/5 in RLE significant pain as noted below Back image (male): 2 1. 2. Extremity Common normals: normal to inspection and full ROM Neuro Common normals: oriented x3, CN's II-XII intact bilaterally, moves all extremities, no focal motor deficits, no sensory deficits noted and deep tendon reflexes 2+ bilaterally Sensorium/orientation: alert Gait (neuro): antalgic Motor exam: no movement abnormalities noted Other: no numbness tingling or weakness Psych Common normals: mental status grossly normal, thought process normal, cooperative, affect normal, speech normal and activity/motor behavior normal Speech: normal speech Thought process: normal thought process Results Additional Findings Additional findings: If on a controlled substance or opioids, I have checked an [place] report on this patient and there are no aberrancies noted in the prescribing history.??If on a controlled substance or opioid a drug screen was completed and reviewed within the last year, and if there has not been a drug screen completed we ordered one today to monitor higher risk, state monitored pain medication use. As part of providing excellent, safe, comprehensive care, the following was completed at our patient's visit: 1. A medication reconciliation and review to ensure accurate knowledge of current/active medications, including asking our patients to inform us about any phzo-czx-mdcytca medications or herbal remedies/nutritional supplements/alternative remedies. 2. A review to specifically ensure our patients have had annual screening for screening for depression, screening for tobacco use, and screening for unhealthy alcohol use. For concerning screenings had a discussion with the patient, provided patient education, and recommended follow-up with primary care provider when appropriate. If patient noted with a risk of falling, they received education on strength, gait, and balance training to prevent future risk of falling. Assessment and Plan Assessment and Plan (1) Lumbar radiculopathy: (2) Failed back syndrome: (3) Encounter for long-term use of opiate analgesic: Assessment and Plan: I feel these medications are improving the patient's quality of life and allow them to tolerate activities of daily living as well as participate in recreational activity.? The patient does not report intolerable side effects. The patient is NOT opioid naive and non-pharmacologic and non-opioid treatment has failed to significantly relieve the patient's pain and improve functionality. The patient has a diagnosis that is related to a somatic or visceral pain etiology. ? ?? I reviewed with the patient the potential risks and side effects with the use of? opioid medications including but not limited to respiratory depression,? sedation, and even . I verified the patient has access to naloxone should? these effects occur. I advised the patient to avoid the use of any other? sedation substances including alcohol, THC, and benzodiazepines while? taking opioid medications due to the risk of compounding side effects and? detrimental outcomes. I reviewed the [employer], pain treatment agreement, urine? drug screen, and opioid start talking forms. The patient was advised to let? their family know they had Naloxone in case they would need to administer? the medication.? ?? A drug screen was completed within the last year, and no aberrancies were noted regarding their use of controlled substances. The patient understands they are subject to the terms and conditions of the pain contract that they have signed. ? ?? I have checked an [place] report on this patient today and there are no aberrancies noted in the prescribing history.? (4) Myofascial pain: (5) Lumbar spondylosis: (6) Myalgia, other site: Assessment and Plan: OPERATION:?bilateral latissimus dorsi Trigger Point Injection. COMPLICATIONS:?None. 2 mL of 2% lidocaine, 2 mL of 0.25% Marcaine and 10 mg of Kenalog, total of 5 mL The procedure risks, hazards and alternatives were discussed with the patient and a proper consent was obtained. The area over the myofascial spasm was prepped with alcohol utilizing sterile technique. After isolating it between two palpating fingertips a 25-gauge 1.5 needle was placed in the center of the myofascial spasms and a negative aspiration was performed. Then 1 cc of bupivicaine, lidocaine, and kenalog was injected into each trigger point, 3 on each side. The patient tolerated the procedure well without any apparent difficulties or complications. They were feeling relief by the time the block had set. Plan refer back to Dr Darren HAYDEN at [facility] for evaluation caudal RAKESH under fluoroscopy, risks vs benefits reviewed continue methocarbamol [id number] TID PRN pain/spasms, has failed baclofen and flexeril in the past continue hydrocodone-acetaminophen 5-325mg BID-TID PRN moderate to severe pain not interested in Spinal cord stimulator revision/trial continue f/u with neurology f/u 2 weeks after RAKESH
== END 2024-07-07 12:27 | disposition home or self-care (01) ==
LOC: PM 12:27
PROVIDERS: PCP Family Medicine; Visit Provider Nurse Practitioner
DX: M54.16 Radiculopathy, lumbar region (principal); M96.1 Postlaminectomy syndrome, not elsewhere classified; Z79.891 Long term (current) use of opiate analgesic; M79.18 Myalgia, other site; M47.816 Spondylosis without myelopathy or radiculopathy, lumbar region
CPT/HCPCS: 20552; J0665; J3301

== ENCOUNTER 2024-10-06 08:14 | Outpatient (OUT) | payer MEDICARE, SELFPAY ==
--- NOTE | 2024-10-06 08:44 | P.CN_ITS ---
Consult Note: HPI Data of Consult Patient: known to practice within the last 3 years Requesting Physician: Justyna Martinez NP Primary Care Provider: JOSE RAY Consult Narrative Reason for consult: f/u Narrative: 64 year old male presents for evaluation and management of chronic low back pain. Pain today 7.5/10 increases to 10/10 with activity standing walking and lifting, improves with sitting. Patient finding mild to mild benefit from current medication regimen. Has completed sword PT at home greater than 6 weeks without improvement. continues to f/u with neurology and neurosurgery, pt reports he has been recieiving botox, trigger point injections, and epidural steroid injections in the neck from Dr Ford office and Dr Levy office. patient finding benefit to robaxin, lyrica, hydrocodone-acetaminophen, nortriptyline, duloxetine. cc:: CC: Justyna Martinez NP Review of Systems ROS Status of ROS 10 or more systems reviewed and unremark able except as noted in history and below Musculoskeletal Reports: back pain and neck pain PFSH PFSH Medical History Heartburn ?R12 - Heartburn (ICD-10) Low back pain ?M54.50 - Low back pain, unspecified (ICD-10) Numbness and tingling ?R20.0 - Anesthesia of skin (ICD-10) ?R20.2 - Paresthesia of skin (ICD-10) Anxiety ?F41.9 - Anxiety disorder, unspecified (ICD-10) Stroke ?I63.9 - Cerebral infarction, unspecified (ICD-10) Acid reflux ?K21.9 - Gastro-esophageal reflux disease without esophagitis (ICD-10) Enlarged prostate ?N40.0 - Benign prostatic hyperplasia without lower urinary tract symptoms (ICD-10) Kidney stone ?N20.0 - Calculus of kidney (ICD-10) Sleep apnea ?G47.30 - Sleep apnea, unspecified (ICD-10) High cholesterol ?E78.00 - Pure hypercholesterolemia, unspecified (ICD-10) Hypertension ?I10 - Essential (primary) hypertension (ICD-10) Surgical History S/P lumbar spine operation ?Z98.890 - Other specified postprocedural states (ICD-10) S/P shoulder replacement ?Z96.619 - Presence of unspecified artificial shoulder joint (ICD-10) S/P carpal tunnel release ?Z98.890 - Other specified postprocedural states (ICD-10) Hx of total knee arthroplasty ?Z96.659 - Presence of unspecified artificial knee joint (ICD-10) Meds Home Medications and Allergies Home Medications ?Medication ?Instructions ?Recorded ?Confirmed ?Type atorvastatin 80 mg tablet 80 mg PO QDAY 12/18/22 03/15/24 History baclofen 20 mg tablet 20 mg PO .qhs PRN spasms 12/18/22 03/15/24 History biotin 1 mg capsule 1 mg PO DAILY 12/18/22 03/15/24 History clopidogrel 75 mg tablet 75 mg PO QDAY 12/18/22 03/15/24 History dicyclomine 20 mg tablet 20 mg PO QID PRN abdominal pain 12/18/22 03/15/24 History doxazosin 4 mg tablet 4 mg PO QDAY 12/18/22 03/15/24 History duloxetine 30 mg capsule,delayed 60 mg PO BID 12/18/22 03/15/24 History release (Cymbalta) finasteride 5 mg tablet 5 mg PO QDAY 12/18/22 03/15/24 History fluticasone propionate 50 intranasal QAM 12/18/22 History mcg/actuation nasal spray,suspension furosemide 40 mg tablet 40 mg PO QDAY 12/18/22 03/15/24 History metoprolol succinate 50 mg 50 mg PO QDAY 12/18/22 03/15/24 History tablet,extended release 24 hr multivitamin (Daily Multi-Vitamin 1 tab PO DAILY 12/18/22 03/15/24 History tablet) nortriptyline 50 mg capsule 50 mg PO QDAY 12/18/22 03/15/24 History omeprazole 40 mg capsule,delayed 40 mg PO QDAY 12/18/22 02/23/23 History release potassium chloride 20 mEq 20 meq PO QDAY 12/18/22 03/15/24 History tablet,extended release(part/cryst) (Klor-Con M) pregabalin 200 mg capsule 200 mg PO TID 12/18/22 03/15/24 History promethazine 25 mg tablet 12.5 mg PO QDAY 12/18/22 03/15/24 History telmisartan 80 mg tablet (Micardis) 80 mg PO DAILY 12/18/22 03/15/24 History testosterone cypionate 200 mg/mL 200 mg IM Q14D 12/18/22 03/15/24 History intramuscular oil valacyclovir 500 mg tablet 500 mg PO Q12H PRN unknown 12/18/22 03/15/24 History hydrocodone 5 mg-acetaminophen 325 1 tab PO TID PRN pain #80 tabs 09/28/23 03/15/24 Rx mg tablet soxjfg-zjoupcrs-ojmdgux 18,000 cap PO 10/15/23 History 6,000-19,000-30,000 unit capsule,delayed rel (Creon) semaglutide 0.25 mg or 0.5 mg (2 0.25 mg subcut QWEEK 10/15/23 03/15/24 History mg/3 mL) subcutaneous pen injector (Ozempic) diazepam 10 mg tablet 10 mg PO 03/15/24 History hydrocodone 7.5 mg-acetaminophen 1 tab PO Q8H PRN pain #90 tabs 03/29/24 Rx 325 mg tablet methocarbamol 500 mg tablet See Rx Instructions .Route 03/29/24 Rx .COMPLEX #180 tabs hydrocodone 7.5 mg-acetaminophen 1 tab PO TID PRN pain #90 tabs 05/03/24 Rx 325 mg tablet hydrocodone 7.5 mg-acetaminophen 1 tab PO TID PRN pain #90 tabs 05/30/24 Rx 325 mg tablet hydrocodone 7.5 mg-acetaminophen 1 tab PO TID PRN pain #90 tabs 06/30/24 Rx 325 mg tablet hydrocodone 5 mg-acetaminophen 325 1 tab PO Q8H PRN pain #90 tabs 08/01/24 Rx mg tablet hydrocodone 5 mg-acetaminophen 325 1 tab PO TID PRN pain #90 tabs 08/30/24 Rx mg tablet hydrocodone 7.5 mg-acetaminophen 1 tab PO TID PRN pain #90 tabs 09/29/24 Rx 325 mg tablet Allergies Allergy/AdvReac Type Severity Reaction Status Date / Time Penicillins Allergy Intermediate Swelling Verified 03/15/24 10:45 of Lip/Tongue/Throat latex Allergy Mild ITCHING Verified 03/15/24 10:45 Exam Constitutional Documenting provider has reviewed patient's vital signs: yes Common normals: no apparent distress, oriented x3, healthy appearing, alert and well nourished General appearance: cooperative Other: significant hyperalgesia to lumbar spine HENMT Common normals: normocephalic, hearing grossly normal bilaterally and moist oral mucous membranes Head and scalp: normocephalic Eye Common normals: PERRL Pupil: PERRL Neck & C-Spine Common normals: full ROM General: normal visual inspection Chest Common normals: inspection of chest normal Respiratory Common normals: normal respiratory effort, no retractions and no use of accessory muscles Back & Pelvis Lumbar spine/lower back: ROM limited, pain with ROM and straight leg raise negative bilaterally Sacroiliac joints: SI joint(s) abnormal Other: negative SLR, sensation intact BLE, strength 5/5 in BLE left sij positive leodan(patricks), gaenslens, thigh thrust, compression test Extremity Common normals: normal to inspection and full ROM Neuro Common normals: oriented x3 Sensorium/orientation: alert Psych Common normals: mental status grossly normal, thought process normal, cooperative, affect normal, speech normal and activity/motor behavior normal Speech: normal speech Thought process: normal thought process Results Additional Findings Additional findings: If on a controlled substance or opioids, I have checked an [place] report on this patient and there are no aberrancies noted in the prescribing history.??If on a controlled substance or opioid a drug screen was completed and reviewed within the last year, and if there has not been a drug screen completed we ordered one today to monitor higher risk, state monitored pain medication use. As part of providing excellent, safe, comprehensive care, the following was completed at our patient's visit: 1. A medication reconciliation and review to ensure accurate knowledge of current/active medications, including asking our patients to inform us about any husp-dlw-ppmtgtn medications or herbal remedies/nutritional supplements/alternative remedies. 2. A review to specifically ensure our patients have had annual screening for screening for depression, screening for tobacco use, and screening for unhealthy alcohol use. For concerning screenings had a discussion with the patient, provided patient education, and recommended follow-up with primary care provider when appropriate. If patient noted with a risk of falling, they received education on strength, gait, and balance training to prevent future risk of falling. Portions of this note may have been carried over from the previous visit and updated as appropriate. Please note this office utilizes paper charting in addition to the electronic medical record. A list of current medications, vitals, and PMH is available there as the clinical staff outside of myself do not have access to inDplay charting during the clinic day operations. As part of providing quality comprehensive care the current medications, vitals, and PMH were reviewed in the paper chart. Assessment and Plan Assessment and Plan (1) Sacroiliitis: (2) Failed back syndrome: (3) Myalgia, other site: (4) Encounter for long-term use of opiate analgesic: (5) Myofascial pain: (6) Chronic, continuous use of opioids: (7) Lumbar spondylosis: Plan will request notes from Dr Levy office, Dr Ford office, and PCP as pt is unsure what all he has had done recently in regards to his chronic pain. pt thinks he has had botox injections, trigger point injections, and epidurals for neck pain and headaches however we have no records. pt continues to utilize robaxin 500-1000mg TID PRN for pain/spasms, hydrocodone-acetaminophen 5-325mg TID PRN moderate to severe pain through our office with benefit without side effects. encouraged pt to continue care with neurology and NS but notify our office of any new injections and medications. update UDS today for medication monitoring. proceed with left SIJ injection under fluoroscopy, risks vs benefits reviewed. encouraged TENS, heat, ice PRN. f/u 2 weeks after left SIJ injection
== END 2024-10-06 08:15 | disposition home or self-care (01) ==
LOC: PM 08:15
PROVIDERS: PCP Family Medicine; Visit Provider Nurse Practitioner
DX: M46.1 Sacroiliitis, not elsewhere classified (principal); M96.1 Postlaminectomy syndrome, not elsewhere classified; M79.18 Myalgia, other site; Z79.891 Long term (current) use of opiate analgesic; M47.816 Spondylosis without myelopathy or radiculopathy, lumbar region
CPT/HCPCS: G0463

== ENCOUNTER 2024-11-14 08:15 | Day surgery (SDC) | payer MEDICARE, SELFPAY ==
[2024-11-14 08:42] VITALS: BP 163/89; PULSE 89; TEMP 36.2; O2SAT 96
[2024-11-14 09:36] VITALS: BP 156/80; PULSE 84; O2SAT 95
[2024-11-14 09:37] VITALS: BP 159/103; PULSE 90; O2SAT 94
[2024-11-14] MEDS: LIDOCAINE HCL 2% 400 MG/20 ML MDV INJ (09:38)
[2024-11-14] MEDS: IOHEXOL 240 MG/ML - 10 ML VIAL 24 MG INJ (09:38)
[2024-11-14] MEDS: BUPIVACAINE HCL 0.25% PF 25 MG/10 ML VIAL 2 ML INJ (09:38)
--- NOTE | 2024-11-14 09:38 | W.PM.PROCNOT ---
Date of procedure: 11/14/24 Pre-op diagnosis: Pain due to left sacroiliitis Post-op diagnosis: same as pre-op Procedure: Procedure: Left sacroiliac joint injection Medications: Bupivacaine 0.25% 4cc, depomedrol 40mg After informed consent was obtained, the patient was brought to the medical procedure unit and placed in the prone position, when a timeout was completed verifying correct patient, procedure, site, positioning, implant, and/or special equipment.? The skin overlying the area was prepped and draped in standard sterile fashion using alcohol.? A 25-gauge needle was inserted towards the left sacroiliac joint under direct fluoroscopic imaging.? Needle tip was advanced until the joint was encountered.? We instilled a total of 2 mL of solution.? Postoperatively needles were removed.? The patient tolerated the procedure well without complication.? The patient reported reduction in pain symptoms postoperatively. Anesthesia: Local Surgeon: Steven Uriarte Pathology: none sent Condition: stable Disposition: no change
[2024-11-14] MEDS: METHYLPREDNISOLONE ACETATE 40 MG/ML VIAL INJ (09:39)
== END 2024-11-14 09:41 | disposition home or self-care (01) ==
LOC: SURGOUT 08:16
PROVIDERS: PCP Family Medicine; Visit Provider Anesthesiology
DX: M46.1 Sacroiliitis, not elsewhere classified (principal); Z79.85 Long-term (current) use of injectable non-insulin antidiabetic drugs
CPT/HCPCS: 27096; J0665; J1010; Q9966

== ENCOUNTER 2024-12-01 12:36 | Outpatient (OUT) | payer MEDICARE, SELFPAY ==
--- NOTE | 2024-12-01 13:12 | PM.CN ---
Consult Note: HPI Data of Consult Patient: known to practice within the last 3 years Requesting Physician: Justyna Martinez NP Primary Care Provider: JOSE RAY Consult Narrative Reason for consult: f/u Narrative: 64 year old male presents for evaluation and management of chronic low back pain. Pain today 8/10 increases to 10/10 with activity standing walking and lifting, improves with sitting. Patient finding mild to mild benefit from current medication regimen. Has completed sword PT at home greater than 6 weeks without improvement. continues to f/u with neurology and neurosurgery, NS continung to workup cervical radiculopathy vs alternative cause. patient finding benefit to robaxin, lyrica, hydrocodone-acetaminophen, nortriptyline, duloxetine. recently underwent left SIJ injection. cc:: CC: Justyna Martinez NP Review of Systems ROS Status of ROS 10 or more systems reviewed and unremarkable except as noted in history and below Musculoskeletal Reports: back pain and neck pain PFSH PFSH Medical History Heartburn ?R12 - Heartburn (ICD-10) Low back pain ?M54.50 - Low back pain, unspecified (ICD-10) Numbness and tingling ?R20.0 - Anesthesia of skin (ICD-10) ?R20.2 - Paresthesia of skin (ICD-10) Anxiety ?F41.9 - Anxiety disorder, unspecified (ICD-10) Stroke ?I63.9 - Cerebral infarction, unspecified (ICD-10) Acid reflux ?K21.9 - Gastro-esophageal reflux disease without esophagitis (ICD-10) Enlarged prostate ?N40.0 - Benign prostatic hyperplasia without lower urinary tract symptoms (ICD-10) Kidney stone ?N20.0 - Calculus of kidney (ICD-10) Sleep apnea ?G47.30 - Sleep apnea, unspecified (ICD-10) High cholesterol ?E78.00 - Pure hypercholesterolemia, unspecified (ICD-10) Hypertension ?I10 - Essential (primary) hypertension (ICD-10) Surgical History S/P lumbar spine operation ?Z98.890 - Other specified postprocedural states (ICD-10) S/P shoulder replacement ?Z96.619 - Presence of unspecified artificial shoulder joint (ICD-10) S/P carpal tunnel release ?Z98.890 - Other specified postprocedural states (ICD-10) Hx of total knee arthroplasty ?Z96.659 - Presence of unspecified artificial knee joint (ICD-10) Meds Home Medications and Allergies Home Medications ?Medication ?Instructions ?Recorded ?Confirmed ?Type atorvastatin 80 mg tablet 80 mg PO QDAY 12/18/22 11/14/24 History biotin 1 mg capsule 1 mg PO DAILY 12/18/22 11/14/24 History clopidogrel 75 mg tablet 75 mg PO QDAY 12/18/22 11/14/24 History dicyclomine 20 mg tablet 20 mg PO QID PRN abdominal pain 12/18/22 11/14/24 History doxazosin 4 mg tablet 4 mg PO QDAY 12/18/22 11/14/24 History duloxetine 30 mg capsule,delayed 60 mg PO BID 12/18/22 11/14/24 History release (Cymbalta) finasteride 5 mg tablet 5 mg PO QDAY 12/18/22 11/14/24 History fluticasone propionate 50 1 spray intranasal QAM 12/18/22 11/14/24 History mcg/actuation nasal spray,suspension furosemide 40 mg tablet 40 mg PO QDAY 12/18/22 11/14/24 History metoprolol succinate 50 mg 50 mg PO QDAY 12/18/22 11/14/24 History tablet,extended release 24 hr multivitamin (Daily Multi-Vitamin 1 tab PO DAILY 12/18/22 11/14/24 History tablet) nortriptyline 50 mg capsule 50 mg PO QDAY 12/18/22 11/14/24 History omeprazole 40 mg capsule,delayed 40 mg PO QDAY 12/18/22 11/14/24 History release Held on 02/23/23. Instructions: pt preference potassium chloride 20 mEq 20 meq PO QDAY 12/18/22 11/14/24 History tablet,extended release(part/cryst) (Klor-Con M) pregabalin 200 mg capsule 200 mg PO TID 12/18/22 11/14/24 History promethazine 25 mg tablet 12.5 mg PO QDAY 12/18/22 11/14/24 History telmisartan 80 mg tablet (Micardis) 80 mg PO DAILY 12/18/22 11/14/24 History testosterone cypionate 200 mg/mL 200 mg IM Q14D 12/18/22 11/14/24 History intramuscular oil valacyclovir 500 mg tablet 500 mg PO Q12H PRN unknown 12/18/22 11/14/24 History vlsjau-mdvlxbdd-mmbxvxi 18,000 cap PO 10/15/23 History 6,000-19,000-30,000 unit capsule,delayed rel (Creon) semaglutide 0.25 mg or 0.5 mg (2 0.25 mg subcut QWEEK 10/15/23 11/14/24 History mg/3 mL) subcutaneous pen injector (Ozempic) methocarbamol 500 mg tablet See Rx Instructions .Route 03/29/24 11/14/24 Rx .COMPLEX #180 tabs hydrocodone 5 mg-acetaminophen 325 1 tab PO TID PRN pain #90 tabs 08/30/24 11/14/24 Rx mg tablet methocarbamol 1,000 mg tablet 1,000 mg PO TID #90 tabs 10/27/24 11/14/24 Rx fremanezumab-vfrm 225 mg/1.5 mL mg subcut 11/14/24 History subcutaneous auto-injector (Ajovy) Allergies Allergy/AdvReac Type Severity Reaction Status Date / Time Penicillins Allergy Intermediate Swelling Verified 11/14/24 08:37 of Lip/Tongue/Throat latex Allergy Mild ITCHING Verified 11/14/24 08:37 Exam Constitutional Documenting provider has reviewed patient's vital signs: yes Common normals: no apparent distress, oriented x3, healthy appearing, alert and well nourished General appearance: cooperative Other: significant hyperalgesia to lumbar spine HENMT Common normals: normocephalic, hearing grossly normal bilaterally and moist oral mucous membranes Head and scalp: normocephalic Eye Common normals: PERRL Pupil: PERRL Neck & C-Spine Common normals: full ROM General: normal visual inspection Chest Common normals: inspection of chest normal Respiratory Common normals: normal respiratory effort, no retractions and no use of accessory muscles Back & Pelvis Lumbar spine/lower back: ROM limited, pain with ROM and straight leg raise positive left Sacroiliac joints: SI joints normal Other: decreased sensation to left L4,5,S1 left sij negative leodan(patricks), gaenslens, thigh thrust, compression test strength 4/5 in LLE Extremity Common normals: normal to inspection and full ROM Neuro Common normals: oriented x3 Sensorium/orientation: alert Psych Common normals: mental status grossly normal, thought process normal, cooperative, affect normal, speech normal and activity/motor behavior normal Speech: normal speech Thought process: normal thought process Results Additional Findings Additional findings: If on a controlled substance or opioids, I have checked an [place]AR[place] report on this patient and there are no aberrancies noted in the prescribing history.??If on a controlled substance or opioid a drug screen was completed and reviewed within the last year, and if there has not been a drug screen completed we ordered one today to monitor higher risk, state monitored pain medication use. As part of providing excellent, safe, comprehensive care, the following was completed at our patient's visit: 1. A medication reconciliation and review to ensure accurate knowledge of current/active medications, including asking our patients to inform us about any ltlc-efe-gdmnxyx medications or herbal remedies/nutritional supplements/alternative remedies. 2. A review to specifically ensure our patients have had annual screening for screening for depression, screening for tobacco use, and screening for unhealthy alcohol use. For concerning screenings had a discussion with the patient, provided patient education, and recommended follow-up with primary care provider when appropriate. If patient noted with a risk of falling, they received education on strength, gait, and balance training to prevent future risk of falling. Portions of this note may have been carried over from the previous visit and updated as appropriate. Please note this office utilizes paper charting in addition to the electronic medical record. A list of current medications, vitals, and PMH is available there as the clinical staff outside of myself do not have access to [employer] charting during the clinic day operations. As part of providing quality comprehensive care the current medications, vitals, and PMH were reviewed in the paper chart. Assessment and Plan Assessment and Plan (1) Lumbar radiculopathy: (2) Sacroiliitis: Assessment and Plan: 11/14/24 left SIJ injection, as of 12/01/24 no pain on exam (3) Failed back syndrome: (4) Myalgia, other site: (5) Encounter for long-term use of opiate analgesic: Assessment and Plan: I feel these medications are improving the patient's quality of life and allow them to tolerate activities of daily living as well as participate in recreational activity.? The patient does not report intolerable side effects. The patient is NOT opioid naive and non-pharmacologic and non-opioid treatment has failed to significantly relieve the patient's pain and improve functionality. The patient has a diagnosis that is related to a somatic or visceral pain etiology. ? ?? I reviewed with the patient the potential risks and side effects with the use of? opioid medications including but not limited to respiratory depression,? sedation, and even . Within the last 12 months I have verified the patient has access to naloxone should? these effects occur. The patient was advised to let? their family know they had Naloxone in case they would need to administer? the medication. I advised the patient to avoid the use of any other? sedation substances including alcohol, THC, and benzodiazepines while? taking opioid medications due to the risk of compounding side effects and? detrimental outcomes. within the last 12 months I have reviewed the [employer], pain treatment agreement and urine drug screen.? ?? A drug screen was completed within the last year, and no aberrancies were noted regarding their use of controlled substances. The patient understands they are subject to the terms and conditions of the pain contract that they have signed. ? ?? I have checked an OARRS report on this patient today and there are no aberrancies noted in the prescribing history.? notes moderate relief for 4-5 hours after each dose with improvement in ability to tolerate ADLs, bathing, housework (6) Myofascial pain: (7) Chronic, continuous use of opioids: (8) Lumbar spondylosis: Plan left L4-5 L5-S1 TFESI for lumbar radiculopathy continue robaxin 500-1000mg TID PRN pain/spasms continue hydrocodone-acetaminophen 7.5-325mg TID PRN moderate to severe pain advised to f/u with neurology regarding lyrica and duloxetine, reports no recent visits continue f/u with NS as planned, at this time no additional injections or surgeries planned continue HEP as tolerated f/u 2 weeks after injection
== END 2024-12-01 12:37 | disposition home or self-care (01) ==
PROVIDERS: PCP Family Medicine; Visit Provider Nurse Practitioner
DX: M54.16 Radiculopathy, lumbar region (principal); M46.1 Sacroiliitis, not elsewhere classified; M96.1 Postlaminectomy syndrome, not elsewhere classified; M79.18 Myalgia, other site; Z79.891 Long term (current) use of opiate analgesic; M47.816 Spondylosis without myelopathy or radiculopathy, lumbar region
CPT/HCPCS: G0463

== ENCOUNTER 2025-03-01 10:51 | Outpatient (OUT) | payer MEDICARE, SELFPAY ==
--- OUTSIDE RECORDS SUMMARY | 2025-02-13 08:30 | XMS_ITS | Encounter Summary ---
Author Organization [facility] Address [facility] [place] [address] Care Team Providers Care Clinical Material Handler Name Role Phone Socrates Valdovinos DO Primary Care Provider [phone] Wilton Feliz MD Unavailable [phone] Source Comments In the event this information is protected by the Federal Confidentiality of Alcohol and Drug AbusePatient Records regulations: The Federal rules restrict any use of the information to criminally investigate or prosecute any alcohol or drug abuse patient.[facility] Reason for Visit * Reason Comments Follow Up Encounter Details Date Type Department Care Team ([facility] st Contact Info) Description 02/13/2025 8:30 AM EDT Office Visit Transplant Center [address] [address] Providers, Advanced Practice [address] [address] Spondylosis (Primary Dx); Chronic bilateral low back pain with bilateral sciatica Social History Tobacco Use Types Packs/Day Years Used Date Smoking Tobacco: Never Smokeless Tobacco: Never Alcohol Use Standard Drinks/Week Comments Yes 0 (1 standard drink = 0.6 oz pur e alcohol) 2 glasses of wine per day. Overall Financial Resource Strain (CARDIA) Answe r Date Recorded How hard is it for you to pa y for the very basics like food, housing, medical care, and heating? Not hard at all 11/22/2021 PHQ-2 Answer Date Recorded PHQ-2 score 3 07/19/2024 Hunger Vital Sign Answer Date Recorded Within the past 12 months, y ou worried that your food would run out before you got the money to buy more. Never true 11/23/19 Within the past 12 months, t he food you bought just didn't last and you didn't have money to get more. Never true 11/22/2021 PRAPARE - Transportation Answer Date Re corded In the past 12 months, has l ack of transportation kept you from medical appointments or from getting medications? No 10/28 In the past 12 months, has l ack of transportation kept you from meetings, work, or from getting things needed for daily living? No 11/22/2021 Housing Stability Vital Sign Answer Salomon e Recorded In the last 12 months, was t here a time when you were not able to pay the mortgage or rent on time? No 11/22/2021 In the last 12 months, how many places have you lived? 1 11/22/2021 In the last 12 months, was t here a time when you did not have a steady place to sleep or slept in a prison (including now)? No 11/22/2021 Area Deprivation Index Answer Date Arsalan rded National Score (1-100), lower number is lower ri sk 87 07/20/2024 State Score (1-10), lower number is lower risk 8 07/20/2024 Data from: https://www.neighborhoodatlas.medicine.[facility].edu/. Last address used for calculation [address] 07/20/2024 Sex and Gender Information Value Date Recorded Sex Assigned at Male 01/28/2021 2:16 PM EDT Legal Sex Male 9:02 AM EST Gender Identity Male 01/28/2021 2:16 PM EDT Sexual Orientation Straight 01/28/2021 2: 16 PM EDT documented as of this encounter Last Filed Vital Signs Vital Sign Reading Time Taken Comments Blood Pressure 134/86 02/13/2025 8:36 AM EDT Pulse 75 02/13/2025 8:36 AM EDT Temperature 36.7 C (98.1 F) 02/13/2025 8:36 AM EDT Respiratory Rate - - Oxygen Saturation 97% 02/13/2025 8:36 AM EDT Inhaled Oxygen Concentration - - Weight 123.9 kg (273 lb 2.4 oz) 02/13/2025 8:36 AM EDT Height 176.5 cm (5' 9.49 ) 02/13/2025 8:36 AM ED T Body Mass Index 39.77 02/13/2025 8:36 AM EDT documented in this encounter Functional Status * Are you deaf or do you have serious difficulty hearing? Answer Date of Assessment Author No 01/06/2022 6:27 PM EDT Radha Escamilla RN * Are you blind or do you have serious difficulty seeing, even when wearing glasses? Answer Date of Assessment Author No 01/06/2022 6:27 PM EDT Radha Escamilla RN * Do you have serious difficulty walking or climbing stairs? Answer Date of Assessment Author No 01/06/2022 6:27 PM EDT Radha Escamilla RN * Do you have difficulty dressing or bathing? Answer Date of Assessment Author No 01/06/2022 6:27 PM EDT Radha Escamilla RN * Because of a physical, mental, or emotional condition, do you have difficulty doing errands alone such as visiting a doctor's office or shopping? Answer Date of Assessment Author No 01/06/2022 6:27 PM EDT Radha Escamilla RN documented as of this encounter Mental Status * Because of a physical, mental, or emotional condition, do you have serious difficulty concentrating, remembering, or making decisions? Answer Entry Date Author No 01/06/2022 6:27 PM EDT Rahda Escamilla RN documented in this encounter Progress Notes * Dori Kumar MD - 03/01/2025 10:13 AM EDT Chief Complaint: for evaluation on the planned ALIF surgery History of Present Illness: Alfredo Urena is a 64-year-old male presenting for follow-up regarding persistent back pain. Alfredo reports no improvement in his back pain, which he describes as horrible. The pain is constant unless he is lying down and has recently begun to interfere with his sleep. He now requires a pillow under him and must lie in a specific position to achieve comfort. He does not endorse any leg issues. He recalls a previous plan to receive an injection from Dr. Alba but did not proceed due to the perceived hassle. He has a history of prior anterior surgery but has not undergone any other abdominal surgeries. Here for evaluation on the exposure of L5-S1 level. REVIEW OF SYSTEMS: Comprehensive ROS obtained and negative unless noted in above HPI. PHYSICAL EXAM: BP 134/86 Pulse 75 Temp 36.7 ??C (98.1 ??F) (Temporal) Ht 176.5 cm (5' 9.49 ) Wt 123.9 kg (273 lb 2.4 oz) SpO2 97% BMI 39.77 kg/m?? General appearance: Well appearing, alert, in no acute distress, well-hydrated, well nourished. Skin: Skin color, texture, turgor normal, no suspicious rashes or lesions Head: Normocephalic, no masses, lesions, tenderness or abnormalities Eyes: Anicteric sclera. Extraocular movements are intact. Ears: External ears normal Back: Normal exam Cardiac: RRR, no murmurs rubs or gallops Lungs:Respirations unlabored Abdomen: Normal abdominal exam, Abdomen soft, non-tender. Bowel sounds normal. No masses, organomegaly Extremities: No deformities, edema, skin discoloration, clubbing or cyanosis. Good capillary refill. Musculoskeletal: No joint swelling, deformity, or tenderness Peripheral pulses: Normal Neuro: Gait normal. Sensation grossly intact. ASSESSMENT: no h/o DVT, PE, TX, or CVA yes anticoagulation: plavix PLAN: - Because of the previous ALIF surgery, possible adhesion may be encountered during the surgery. Explain the possibility of aborting the surgery because of adhesion as well as the possibility of vascular injury during the exposure. - CT: no calcification on CIAs - Will discuss with Dr. Banks for further planning - I spent 45 minutes on the chart review and interviewing with the patient. Dori Kumar MD * Dori Kumar MD - 02/13/2025 8:00 AM EDT UROLOGY SURGICAL Evaluation SERVICE DATE: 02/13/2025 SERVICE TIME: Seen by Dr. Kumar documented in this encounter Plan of Treatment Upcoming Encounters Date Type Department Care Team (Late st Contact Info) Description 03/08/2025 2:00 PM EDT Office Visit Neurosurgery [address] [place] [address] Shree Banks MD [address] [place] [address] follow up documented as of this encounter Procedures Procedure Name Priority Date/Time Associated Diagnosis Comments UA DIP, URINE (POC) Routine 02/13/2025 9 :40 AM EDT documented in this encounter Results * UA DIP, URINE (POC) (02/13/2025 9:40 AM EDT) GLUCOSE UA (POCT) Negative Negative mg/dL [facility] BILIRUBIN UA (POCT) Negative Negative [facility] KETONE UA (POCT) Negative Negative mg/dL [facility] SPECIFIC GRAVITY UA (POCT) 1.015 1.005 - 1.030 [facility] HEMOGLOBIN/BLOOD UA (POCT) Negative Negative [facility] PH UA (POCT) 6.0 4.5 - 8.0 [facility] PROTEIN UA (POCT) Negative Negative mg/dL [facility] UROBILINOGEN UA (POCT) 0.2 Normal E.U./dL [facility] NITRITE UA (POCT) Negative Negative [facility] LEUKOCYTES UA (POCT) Negative Negative [facility] COLOR [facility] (POCT) [facility] CLARITY UA (POCT) Clear [facility] 02/13/2025 9:40 AM EDT Narrative [facility] POINT OF CARE - 02/13/2025 9:40 AM EDT Location:[facility], [address] [place] [address], [facility] Provider POC TESTING Final Result [facility] POINT OF CARE [address] documented in this encounter Visit Diagnoses Diagnosis Spondylosis- Primary Spondylosis of unspecified site without mention of myelopathy Chronic bilateral low back pain with bilateral sciatica documented in this encounter Care Teams Clinical Material Handler Relationship Specialty Start Date End Date Socrates Valdovinos DO [address] [place] [address] PCP - General 02/04/10 Wilton Feliz MD [address] [facility] [address] [place] [address] Neurology 08/23/24 documented as of this encounter
--- OUTSIDE RECORDS SUMMARY | 2025-02-28 20:47 | XMS_ITS | Continuity of Care Document ---
Author Organization [facility] Address [address] [place] [address] Phone Care Team Providers Care Night Patrol Inspector Name Role Phone Socrates Valdovinos DO Primary Care Provider Palak Decker Attending Provid er Socrates Valdovinos DO Attending Provider [phone] Rafael Holbrook MD Attending Provider Lisa Donnelly MD Attending Provider [phone] Rosey Dubose MD Attending Provider Care Teams Patient Care Team Team Status: Active Member Role Status Dates Socrates Valdovinos DO Primary Care Provider Active Visit Care Team Team Status: Inactive Member Role Status Dates Socrates Valdovinos DO Primary Care Provider Active St art: December 08, 2024 End: December 08, 2024 SILVIO Medina Attending Provider Ac tive Start: December 08, 2024 End: December 08, 2024 Visit Care Team Team Status: Inactive Member Role Status Dates Socrates Valdovinos DO Primary Care Provider Active St art: December 12, 2024 End: December 12, 2024 Socrates Valdovinos DO Attending Provider Active Start : December 12, 2024 End: December 12, 2024 Visit Care Team Team Status: Inactive Member Role Status Dates Socrates Valdovinos DO Primary Care Provider Active St art: December 19, 2024 End: December 19, 2024 Rafael Holbrook MD Attending Provider Active Start: December 19, 2024 End: December 19, 2024 Visit Care Team Team Status: Inactive Member Role Status Dates Socrates Valdovinos DO Primary Care Provider Active St art: January 31, 2025 End: January 31, 2025 Lisa Donenlly MD Attending Provider Active Start: January 31, 2025 End: January 31, 2025 Visit Care Team Team Status: Inactive Member Role Status Dates Socrates Valdovinos DO Primary Care Provider Active St art: February 02, 2025 End: February 02, 2025 Lisa Donnelly MD Attending Provider Active Start: February 02, 2025 End: February 02, 2025 Patient Care Team Team Status: Inactive Member Role Status Dates Socrates Valdovinos DO Primary Care Provider Active St art: February 28, 2025 End: February 28, 2025 Rosey Dubose MD Attending Provider Active Sta rt: February 28, 2025 End: February 28, 2025 Chief Complaint and Reason for Visit Chief Complaint Admit Date s80.811a December 08, 2024 3:24 pm hurt RT leg/was at [facility] December 122024 2:50pm 2-3 month December 19, 2024 9:34 am Angina January 31, 2025 9:1 9am Angina February 02, 2025 10: 36am E29.1 February 28, 2025 1:40pm Reason for Visit Admit Date Abrasion, right lower leg, initial encou nter December 12, 2024 2:50pm Contusion of right lower leg December 12, 2024 2:50pm BMI 40.0-44.9, adult December 19, 2024 9:3 4am Essential hypertension December 19, 2024 9 :34am Fatty liver December 19, 2024 9:34 am Mixed hyperlipidemia December 19, 2024 9:3 4am Obstructive sleep apnea December 19, 2024 9:34am Prediabetes December 19, 2024 9:34 am Allergies, Adverse Reactions, Alerts Allergen Type Severity Reaction Last Updated Verified Status Comments Penicillins Allergy Severe Anaphylaxis, throat swelled January 31, 2025 9:43am Yes Active buspirone Allergy Unknown headache January 31, 2025 9:43am Yes Active latex Allergy Unknown Rash January 31, 2025 9:43am Yes Active This patient is not Allergic to Albuterol. Social History Smoking Status Status Start Date End Date Date of Observa tion Never smoked tobacco (finding) January 31, 2025 9:25am Observation Status Observation Response Date of Response Legal Sex Male (finding) Sex Assigned At Male [id number] Family History Relationship Condition Age at Onset Recorded Date/T larry father Diabetes mellitus Unknown Hypertension Unknown mother Diabetes mellitus Unknown Malignant neoplasm of pancreas Unknown brother High blood cholesterol Unknown Hypertension Unknown Problems Active Problems Medical Problem Onset Date Status Comments BARRY (acute kidney injury) Unknown Active Generalized OA Unknown Active Generalized anxiety disorder with panic attacks Unknown Active 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 Chronic kidney disease, stage 3 Unknown Active Chronic insomnia Unknown Active Cellulitis Unknown Active Diarrhea Unknown Active Intolerance to BiPAP/CPAP Unknown Active Migraines Unknown Active Kidney stones Unknown Active lithotripsy Mixed hyperlipidemia Unknown Active Obesity, Class II, BMI 35-39.9 Unknown Active Atypical chest pain Unknown Active Polypharmacy Unknown Active Osteoarthritis of knee Unknown Active Essential hypertension Unknown Active Coronary artery disease invo lving [place] coronary artery of [place] heart Unknown Active BMI 39.0-39.9,adult Unknown Active BMI 40.0-44.9, adult Unknown Active Prediabetes Unknown Active Sepsis Unknown Active Chronic back pain Unknown Active Lumbar radicular pain Unknown Active Neck muscle strain Unknown Active Postlaminectomy syndrome Unknown Active sabina roid injections, lumbar Elevated blood pressure read ing with diagnosis of hypertension Unknown Active Left ear impacted cerumen Unknown Active GERD (gastroesophageal reflu x disease) Unknown Active Chronic headaches Unknown Active Stable angina Unknown Active CVA (cerebral vascular accident) Unknown Active 2014 Excessive daytime sleepiness Unknown Active Medications Medication Status Dose Units Route Directions Qty Days St art Date Stop Date End Date Instructions Adherence Doxepin 10 mg capsule Discont inued 0 .ROUTE .COMPLEX October 08, 2023 1:27pm December 10, 2023 1:38p m TAKE 1 CAPSULE DAILY AT BEDTIME Clopidogrel 75 mg tablet Discont inued 75 MG PO Daily at bedtime October 29, 2023 9:50am October 29, 2023 9:52a m Clopidogrel 75 mg tablet Discont inued 0 .ROUTE .COMPLEX October 29, 2023 9:51am December 10, 2023 1:38p m TAKE 1 TABLET DAILY Ferrous Sulfate 325 mg (65 mg iron) tablet Discont inued 325 MG PO Daily November 02, 2023 9:16am 2023 3:20p m FreeTextSig: TAKE ONE TABLET BY MOUTH DAILY WITH FOOD; Note: Source Status: Taking; Refills: 1; Qty: 90 Tablet; Provider: Bonifacio Crowell ( ) Promethazin e 25 mg tablet Discont inued 25 MG PO Every 6 hours as needed for nausea and vomiting November 03, 2023 3:29pm December 16, 2023 1:39p m Metoprolol Succinate 50 mg tablet extended release 24 hr Discont inued 0 .ROUTE .COMPLEX November 03, 2023 3:31pm December 10, 2023 1:38p m TAKE 1 TABLET DAILY Omeprazole 40 mg capsule,del ayed release(DR/ EC) Discont inued 0 .ROUTE .COMPLEX November 03, 2023 3:32pm December 10, 2023 1:38p m TAKE 1 CAPSULE DAILY 30 MINUTES BEFORE MORNING MEAL Finasteride 5 mg tablet Discont inued 0 .ROUTE .COMPLEX November 03, 2023 3:40pm December 10, 2023 1:38p m TAKE 1 TABLET DAILY Doxazosin 4 mg tablet Discont inued 0 .ROUTE .COMPLEX November 11, 2023 2:20pm December 10, 2023 1:38p m TAKE 1 TABLET DAILY Furosemide 40 mg tablet Discont inued 0 .ROUTE .COMPLEX November 11, 2023 2:21pm December 10, 2023 1:38p m TAKE 1 TABLET DAILY Valacyclovi r 500 mg tablet Discont inued 0 .ROUTE .COMPLEX November 11, 2023 2:21pm December 10, 2023 1:38p m TAKE 1 TABLET DAILY Potassium Chloride (Klor-Con M20) 20 mEq tablet,ER particles/c rystals Discont inued 0 .ROUTE .COMPLEX November 24, 2023 4:25pm December 10, 2023 1:38p m TAKE 1 TABLET DAILY WITH FOOD Promethazin e 25 mg tablet Active 25 MG PO Every 6 hours as needed for nausea December 16, 2023 1:37pm 1 tablet as needed for nausea Unknown Baclofen 20 mg tablet Discont inued 0 .ROUTE .COMPLEX December 21, 2023 8:12am Novem marcela 2023 11:44 am TAKE 1 TABLET DAILY NEEDED Telmisartan 80 mg tablet Discont inued 0 .ROUTE .COMPLEX January 29, 2024 9:47am Febru sd2024 10:47 am TAKE 1 TABLET DAILY Fluticasone Propionate 50 mcg/actuati on spray,suspe nsion Discont inued 0 .ROUTE .COMPLEX 48 February 01, 2024 8:50am u 2024 10:42 am USE 2 SPRAYS IN EACH NOSTRIL ONCE DAILY Doxepin 10 mg capsule Discont inued 0 .ROUTE .COMPLEX 90 Octobe r 2023 3:57pm 2024 10:41 am TAKE 1 CAPSULE DAILY AT BEDTIME Clopidogrel 75 mg tablet Discont inued 0 .ROUTE .COMPLEX 90 Octobe r 2023 3:57pm Janua ry 2024 2:19p m TAKE 1 TABLET DAILY Ferrous Sulfate (Ferosul) 325 mg (65 mg iron) tablet Discont inued 0 .ROUTE .COMPLEX 90 er 2023 3:19pm Febru sd2024 12:44 pm TAKE 1 TABLET BY MOUTH DAILY WITH FOOD Potassium Chloride (Klor-Con M20) 20 mEq tablet,ER particles/c rystals Discont inued 0 .ROUTE .COMPLEX 90 b er 2023 3:19pm Febru sd2024 10:47 am TAKE 1 TABLET DAILY WITH FOOD Furosemide 40 mg tablet Discont inued 0 .ROUTE .COMPLEX 90 b er 2023 3:19pm Febru sd2024 10:43 am TAKE 1 TABLET DAILY Doxazosin 4 mg tablet Discont inued [facility] .ROUTE .[facility]X [facility] 3[facility]20[facility] marcela 2023 3:31p m TAKE 1 TABLET DAILY Valacyclovi r 500 mg tablet Discont inued 0 .ROUTE .COMPLEX 90 [facility] er 2023 3:20pm Febru sd2024 10:47 am TAKE 1 TABLET DAILY Omeprazole 40 mg capsule,del ayed release(DR/ EC) Discont inued 0 .ROUTE .COMPLEX [address] [place] [address] er 2023 3:20pm Febru sd2024 10:47 am TAKE 1 CAPSULE DAILY 30 MINUTES BEFORE MORNING MEAL Finasteride 5 mg tablet Discont inued 0 .ROUTE .COMPLEX 90 [facility] 2023 3:20pm marcela 2023 1:02p m TAKE 1 TABLET DAILY Metoprolol Succinate 50 mg tablet extended release 24 hr Discont inued 0 .ROUTE .COMPLEX [address] [place] [address] 2023 3:20pm [facility]2024 10:43 am TAKE 1 TABLET DAILY Doxazosin 4 mg tablet Discont inued 4 MG PO Daily [facility] 2023 3:30pm November 08, 2024 1:30p m Finasteride 5 mg tablet Discont inued 5 MG PO Daily [address] [place] [address] 2023 12:59p m November 08, 2024 1:30p m Ferrous Sulfate (Ferosul) 325 mg (65 mg iron) tablet Discont inued 0 .ROUTE .[facility] 2024 12:30p m [facility]2024 12:48 pm TAKE 1 TABLET BY MOUTH DAILY WITH FOOD Ferrous Sulfate (Ferosul) 325 mg (65 mg iron) tablet Discont inued 325 MG PO Daily 2024 12:47p m November 01, 2024 9:57a m Semaglutide (Ozempic) 2 mg/dose (8 mg/3 mL) pen injector Discont inued 2 MG SUBCUT every week September 20, 2024 12:00a m December 19, 2024 10:26 am Clopidogrel 75 mg tablet Discont inued 0 .ROUTE .[place] [address] October 20, 2024 8:28am October 31, 2024 10:06 am TAKE 1 TABLET DAILY Doxepin 10 mg capsule Discont inued 10 MG PO Daily at bedtime October 21, 2024 1:22pm November 02, 2024 9:27a m Ferrous Sulfate (Ferosul) 325 mg (65 mg iron) tablet Discont inued 0 .ROUTE .COMPLEX November 01, 2024 9:56am November 02, 2024 10:41 am TAKE 1 TABLET BY MOUTH DAILY WITH FOOD Doxazosin 4 mg tablet Discont inued 0 .ROUTE .COMPLEX November 08, 2024 1:30pm December 12, 2024 10:36 am TAKE 1 TABLET (4 MG) DAILY Finasteride 5 mg tablet Discont inued 0 .ROUTE .COMPLEX November 08, 2024 1:30pm December 12, 2024 2:45p m TAKE 1 TABLET DAILY Onabotulinu mtoxina (Botox) 200 unit recon soln Discont inued 200 UNIT SUBCUT Once December 20, 2024 12:00a m 2024 9:49a m Telmisartan 80 mg tablet Discont inued 0 .ROUTE .COMPLEX January 23, 2025 3:44pm 2024 9:54a m TAKE 1 TABLET DAILY Fluticasone Propionate 50 mcg/actuati on spray,suspe nsion Discont inued 0 .ROUTE .COMPLEX January 30, 2025 9:04am Aug2024 9:54a m USE 2 SPRAYS IN EACH NOSTRIL ONCE DAILY Duloxetine 60 mg capsule,del ayed release(DR/ EC) Discont inued 60 MG PO Daily February 14, 2025 12:00a m Aug2024 11:07 am Duloxetine 60 mg capsule,del ayed release(DR/ EC) Active 60 MG PO Twice daily February 20, 2025 11:07a m Unknown Nortriptyli ne 50 mg capsule Active 50 MG PO Daily at bedtime 2024 12:34p m Unknown Ibuprofen 800 mg Tablet Discont inued 800 MG PO Three times daily as needed for Pain 2018 1:00am September 11, 2021 5:10p m Diclofenac Sodium (Voltaren) 1 % Gel Discont inued 2 GM TOPICA L Four times daily 2018 1:00am September 11, 2021 5:00p m [place] 3-Dha-Epa-F jazmin Oil (Fish Oil) 1,000 mg (120 mg-180 mg) Capsule Discont inued 2018 1:00am September 11, 2021 5:13p m Prasterone (Dhea)-Calc ium Carb (Dhea) 10 mg-47 mg calcium Tablet Discont inued 10 TAB PO Daily 2018 1:00am October 30, 2023 8:49a m Anastrozole 1 mg Tablet Discont inued 2018 1:00am September 11, 2021 4:57p m Promethazin e 12.5 mg Tablet Discont inued 12.5 MG PO .as needed as needed for nausea and vomiting 2018 1:00am October 30, 2023 8:52a m Dicyclomine 20 mg tablet Discont inued 20 MG PO Every morning 2018 1:00am December 10, 2023 1:38p m Levomefolat e Calcium 7.5 mg Tablet Discont inued 2018 1:00am September 11, 2021 5:11p m Dicyclomine 20 mg tablet Active 20 MG PO Every morning as needed for abdominal pain December 10, 2023 1:30pm Unknown Omeprazole 40 mg capsule,del ayed release(DR/ EC) Discont inued 40 MG PO Every morning September 11, 2021 12:00a m November 03, 2023 3:32p m Nortriptyli ne 50 mg capsule Discont inued 50 MG PO Daily at bedtime September 11, 2021 12:00a m Septe [facility] 2024 12:34 pm Pregabalin 100 mg capsule Discont inued 200 MG PO Daily at 0730, 1530, 2330 September 11, 2021 12:00a m October 30, 2023 8:37a m Mirtazapine 30 mg tablet Discont inued 30 MG PO Daily September 11, 2021 12:00a m Decem 2021 9:51a m Furosemide 40 mg tablet Discont inued 1 TAB PO Every morning Octobe r 2016 12:00a m October 30, 2023 8:55a m Hydrocodone -Acetaminop hen 5-325 mg tablet Discont inued 1 TAB PO Twice daily Marobe r 2016 12:00a m [facility] 2021 3:14p m Clopidogrel 75 mg tablet Discont inued 1 TAB [facility] 12:00a m October 29, 2023 9:51a m Potassium Chloride (Klor-Con M20) 20 mEq tablet,ER particles/c rystals Discont inued 1 TAB PO Every morning [facility] r 2016 12:00a m November 24, 2023 4:25p m Fluticasone Propionate (Flonase Allergy Relief) 50 mcg/actuati on [place] nsion Discont inued 2 SPRAY INTRAN BLU Twice daily [facility] r 2016 12:00a m Augus t 2023 8:51a m Duloxetine (Cymbalta) 60 mg Capsule,Del ayed Release(Dr/ Ec) Discont inued 30 MG PO Three times daily [facility] r 2016 12:00a m October 30, 2023 8:33a m Metoprolol Tartrate 50 mg Tablet Discont inued 50 MG PO Every morning [facility] 2016 12:00a m October 30, 2023 8:44a m Valacyclovi r (Valtrex) 500 mg Tablet Discont inued 500 MG PO As Directed as needed for Outbreak [facility] 2016 12:00a m November 11, 2023 2:21p m takes in the morning Baclofen 20 mg Tablet Discont inued 20 MG PO Daily at bedtime [facility] 2016 12:00a m December 10, 2023 1:38p m Chromium-Br indal Baker (Garcinia Cambogia) 200-500 mcg-mg Tablet Discont inued 1 TAB PO Daily [facility] 2016 12:00a m [facility] 2021 3:13p m Eletriptan (Relpax) 40 mg Tablet Discont inued 1 dose pk PO Three times daily as needed for Headache [facility] r 2016 12:00a m September 11, 2021 5:05p m Psyllium Husk (Fiber (Psyllium Husk)) 0.4 gram Capsule Discont inued 1 TAB PO Daily Mar[facility] r 2016 12:00a m September 11, 2021 8:40p m Gabapentin (Neurontin) 600 mg Tablet Discont inued 600 MG PO 1 to 2 times per day [facility] r 2016 12:00a m September 11, 2021 7:14p m Atorvastati n 80 mg tablet Discont inued 1 TAB PO [facility] 12:00a m September 30, 2023 5:45p m Telmisartan (Micardis) 80 mg Tablet Discont inued 80 MG PO Every morning [facility] r 2016 12:00a m Janus t 2023 9:48a m Doxazosin 4 mg Tablet Discont inued 4 MG PO Daily at bedtime [facility] 2016 12:00a m November 11, 2023 2:20p m Biotin 10,000 mcg Capsule Discont inued 1 TAB PO Daily at bedtime [facility] 2016 12:00a m October 30, 2023 8:40a m Finasteride 5 mg Tablet Discont inued 5 MG PO Daily at bedtime [facility] r 2016 12:00a m November 03, 2023 3:40p m Multivit-Mi n-Folic-Vit K-Lycop (One-A-Day Men's Multivitami n) 400-300 mcg Tablet Active 1 TAB PO Every evening Mar[facility] r 2016 12:00a m Unknown Zolpidem (Ambien Cr) 12.5 mg Tablet,Ext Release Multiphase Discont inued 12.5 MG PO Bedtime as needed for Insomnia [facility] 2016 12:00a m September 11, 2021 8:45p m Testosteron e Cypionate 200 mg/mL Kit Discont inued 150 MG IM EVERY 2 WEEKS Mar[facility] r 2016 12:00a m Janus t 2024 9:53a m Diclofenac Sodium 1 % Gel Discont inued 1 APPLIC TOPICA L 2-4 TIMES DAILY as needed for Itching [facility] 2016 12:00a m September 11, 2021 5:00p m Atorvastati n 80 mg tablet Active 80 MG PO Daily at bedtime September 30, 2023 5:42pm Unknown Furosemide 40 mg tablet Discont inued 40 MG PO Every morning October 30, 2023 8:47am November 11, 2023 2:21p m Baclofen 20 mg tablet Discont inued 20 MG PO Daily December 10, 2023 1:28pm December 21, 2023 8:13a m Oxycodone-A cetaminophe n (Percocet) 5-325 mg tablet Discont inued 1 TAB PO Q6H as needed for pain 8 2 February 07, 2020 September 11, 2021 5:13p m Ibuprofen 800 mg Tablet Discont inued 800 MG PO Three times daily [facility] 12:[facility]a m Novem marcela 2021 3:56p m Acetaminoph en 500 mg Tablet Discont inued 1000 MG PO Q6H as needed for Pain [facility] er 2021 12:00a m Dece marcela 2021 9:48a m On Hold: until taking hydrocodone Hydrocodone -Acetaminop hen 5-325 mg Tablet Discont inued 1 TAB PO Every 6 hours as needed for Pain 12 3 Novemb er 2021 Dece marcela 2021 9:51a m Aspirin 81 mg Tablet,Rebeca yed Release (/Ec) Discont inued 81 MG PO Daily 30 30 Novemb er 2021 1:00am October 30, 2023 8:29a m Quetiapine 25 mg tablet Discont inued 25 MG PO Daily at bedtime [facility] er 2021 1:00am October 30, 2023 8:51a m Onabotulinu mtoxina (Botox) 100 unit Recon Soln Discont inued 0 .ROUTE .COMPLEX [facility] er 2021 1:00am Novem marcela 2023 11:45 am patient recieves injectios for migraine treatment every 3 months at neurology office Cathy santos-Vfrm (Ajovy Syringe) 225 mg/1.5 mL Syringe Discont inued 250 MG SUBCUT Q28D [facility] er 2021 1:00am December 19, 2024 10:12 am for migraines, patient last injection 05/27 Metoprolol Succinate 50 mg tablet extended release 24 hr Discont inued 50 MG PO Daily [facility] er 2021 1:00am 2023 1:04p m Clindamycin Hcl 150 mg capsule Discont inued 450 MG PO Q8H 63 September 03, 2022 1:00am 2023 1:02p m Morphine 15 mg tablet Discont inued 7.5 MG PO Q6H as needed for pain 4 September 03, 20222023 1:04p m Hydrocodone -Acetaminop hen 7.5-325 mg tablet Active 1 TAB PO Three times daily January 31, 2025 12:00a m Unknown Testosteron e Cypionate 200 mg/mL oil Active 200 MG IM EVERY 2 WEEKS January 31, 2025 12:00a m Unknown Ropinirole 1 mg tablet Active 1 MG PO Every morning January 31, 2025 12:00a m Unknown Isosorbide Mononitrate 30 mg tablet extended release 24 hr Discont inued 30 MG PO Every morning January 31, 2025 12:00a m Augus t 2024 12:34 pm Ferrous Sulfate (Ferosul) 325 mg (65 mg iron) tablet Active 325 MG PO Every evening January 31, 2025 12:00a m TAKE 1 TABLET BY MOUTH DAILY WITH FOOD Unknown Telmisartan 80 mg tablet Active 80 MG PO Every morning January 31, 2025 12:00a m TAKE 1 TABLET DAILY Unknown Fluticasone Propionate 50 mcg/actuati on spray,suspe nsion Active 2 SPRAY INTRAN BLU Twice daily January 31, 2025 12:00a m USE 2 SPRAYS IN EACH NOSTRIL ONCE DAILY Unknown Isosorbide Mononitrate 30 mg tablet extended release 24 hr Discont inued MG PO October 30, 2023 12:00a m December 10, 2023 1:38p m FreeTextSig: Oral; Note: Source Status: Taking; Qty: 90 Tablet; Provider: Andrzej Atogepant (Qulipta) 60 mg tablet Discont inued 60 MG PO Daily October 30, 2023 12:00a m December 10, 2023 1:27p m Biotin 5,000 mcg tablet, sublingual Active 5000 MCG SUBLIN GUAL Daily October 30, 2023 12:00a m FreeTextSi tablet Orally Once a day; Note: Source Status: Taking; Provider: Bonifacio Crowell ( ) Unknown Hydrocodone -Acetaminop hen 5-325 mg tablet Discont inued 1 TAB PO Three times daily October 30, 2023 12:00a m Novem marcela 2023 9:42a m FreeTextSi Tablet Orally tid; Note: Source Status: Taking; Provider: Dr Martinez Metoprolol Succinate 50 mg tablet extended release 24 hr Discont inued 50 MG PO Daily October 30, 2023 12:00a m November 03, 2023 3:32p m FreeTextSi tablet Orally Once a day; Note: Source Status: Taking; Refills: 1; Qty: 90 Tablet; Provider: Bonifacio Prieto Nitroglycer in 0.4 mg tablet, sublingual Discont inued 0.4 MG SUBLIN GUAL Q5M as needed for chest pain October 30, 2023 12:00a m Augus t 2024 12:34 pm FreeTextSig: Sublingual; Note: Source Status: Taking; Qty: 25 Tablet; Provider: Andrzej Promethazin e 25 mg tablet Discont inued 25 MG PO as needed October 30, 2023 12:00a m November 03, 2023 3:32p m FreeTextSi tablet as needed nausea Orally every 6 hrs; Note: Source Status: Taking; Refills: 1; Qty: 90 Tablet; Provider: Bonifacio Prieto Ropinirole 0.5 mg tablet Discont inued 0.5 MG PO Daily October 30, 2023 12:00a m Augus t 2024 9:54a m FreeTextSi tablet Orally Once a day; Note: Source Status: Taking; Refills: 1; Qty: 90 Tablet; Provider: Bonifacio Prieto Ferrous Sulfate 325 mg (65 mg iron) tablet Discont inued 325 MG PO Daily October 30, 2023 12:00a m November 02, 2023 9:17a m FreeTextSig: TAKE ONE TABLET BY MOUTH DAILY WITH FOOD; Note: Source Status: Taking; Refills: 1; Qty: 90 Tablet; Provider: Bonifacio Crowell ( ) Sildenafil 50 mg tablet Active 50 MG PO Daily as needed for sexual activity October 30, 2023 12:00a m FreeTextSi tablet as needed Orally Once a day; Note: Source Status: Taking; Provider: Bonifacio Crowell ( ) Unknown Magnesium 200 mg tablet Active 400 MG PO Daily at bedtime October 30, 2023 12:00a m Unknown Lipase-Prot ease-Amylas e (Creon) 36,000-114, 000- 180,000 unit capsule,del ayed release(DR/ EC) Active 2 CAP PO Four times daily October 30, 2023 12:00a m administer with meals and/or snacks Unknown Ascorbic Acid-Collag en (Collagen Plus Vitamin C) 125-740 mg capsule Active 2 CAP PO Twice daily October 30, 2023 12:00a m Unknown Semaglutide (Ozempic) 2 mg/dose (8 mg/3 mL) pen injector Discont inued 2 MG SUBCUT every week October 30, 2023 12:00a m September 28, 2024 2:55p m Isosorbide Mononitrate 30 mg tablet extended release 24 hr Discont inued 30 MG PO Daily December 10, 2023 1:32pm November 02, 2024 9:27a m Methocarbam ol 500 mg tablet Discont inued 500 MG PO Three times daily Novemb er 2023 1:00am Novem marcela 2023 11:46 am Hydrocodone -Acetaminop hen 7.5-325 mg tablet Discont inued TAB PO Three times daily Novemb er 2023 1:00am September 28, 2024 2:54p m Methocarbam ol 500 mg tablet Active 1000 MG PO Three times daily Novemb er 2023 11:45a m Unknown Hydrocodone -Acetaminop hen 5-325 mg tablet Discont inued TAB PO Three times daily September 28, 2024 12:00a m Augus t 2024 9:47a m Doxepin 10 mg capsule Discont inued 10 MG PO Daily at bedtime 2024 10:40a m October 21, 2024 1:22p m Fluticasone Propionate 50 mcg/actuati on spray,suspe nsion Discont inued 2 SPRAY INTRAN BLU Daily 2024 10:42a m Augus t 2024 9:15a m 2 sprays each nostril once daily Furosemide 40 mg tablet Active 40 MG PO Every morning 2024 10:42a m Unknown Metoprolol Succinate 50 mg tablet extended release 24 hr Active 50 MG PO Every morning 2024 10:43a m Unknown Omeprazole 40 mg capsule,del ayed release(DR/ EC) Active 40 MG PO Every morning 2024 10:44a m TAKE 1 CAPSULE DAILY 30 MINUTES BEFORE MORNING MEAL Unknown Potassium Chloride (Klor-Con M20) 20 mEq tablet,ER particles/c rystals Active 20 MEQ PO Every morning 2024 10:45a m TAKE 1 TABLET DAILY WITH FOOD Unknown Telmisartan 80 mg tablet Discont inued 80 MG PO Daily 2024 10:46a m January 23, 2025 3:44p m Valacyclovi r 500 mg tablet Active 500 MG PO Every morning 2024 10:46a m Unknown Sulfamethox azole-Trime thoprim (Bactrim Ds) 800-160 mg tablet Discont inued 1 TAB PO Twice daily 2024 1:00am September 28, 2024 2:56p m Doxazosin 4 mg tablet Active 4 MG PO Daily at bedtime December 12, 2024 10:35a m Unknown Finasteride 5 mg tablet Active 5 MG PO Daily at bedtime December 12, 2024 2:45pm Unknown Semaglutide (Ozempic) 2 mg/dose (8 mg/3 mL) pen injector Discont inued 2 MG SUBCUT every week September 30, 2023 12:00a m October 01, 2023 3:01p m [employer] mg Subcutaneous weekly; Note: Source Status: TakingPatient assistance.; Provider: Eddi uDrbin Pregabalin 200 mg capsule Active 200 MG PO Three times daily September 30, 2023 12:00a m Unknown Duloxetine 30 mg capsule,del ayed release(DR/ EC) Discont inued 30 MG PO Four times daily September 30, 2023 12:00a m October 30, 2023 8:45a m Duloxetine 30 mg capsule,del ayed release(DR/ EC) Discont inued 60 MG PO Once October 30, 2023 8:34am December 10, 2023 1:38p m Duloxetine 30 mg capsule,del ayed release(DR/ EC) Discont inued 60 MG PO Daily at bedtime December 10, 2023 1:36pm December 19, 2024 10:14 am Duloxetine 30 mg capsule,del ayed release(DR/ EC) Active 30 MG PO Twice daily December 19, 2024 10:11a m Unknown Clopidogrel 75 mg tablet Discont inued 75 MG PO Daily December 10, 2023 1:30pm Octob er 2023 3:57p m Doxazosin 4 mg tablet Discont inued 4 MG PO Daily December 10, 2023 1:30pm 2023 3:21p m Doxepin 10 mg capsule Discont inued 10 MG PO Daily at bedtime December 10, 2023 1:31pm Octob er 2023 3:57p m Finasteride 5 mg tablet Discont inued 5 MG PO Daily December 10, 2023 1:31pm 2023 3:21p m Furosemide 40 mg tablet Discont inued 40 MG PO Daily December 10, 2023 1:32pm 2023 3:21p m Metoprolol Succinate 50 mg tablet extended release 24 hr Discont inued 50 MG PO Daily December 10, 2023 1:33pm 2023 3:21p m Omeprazole 40 mg capsule,del ayed release(DR/ EC) Discont inued 40 MG PO .COMPLEX as needed December 10, 2023 1:34pm 2023 3:21p m 40 mg orally PRN; Potassium Chloride (Klor-Con M20) 20 mEq tablet,ER particles/c rystals Discont inued 20 MEQ PO Daily December 10, 2023 1:34pm 2023 3:21p m Valacyclovi r 500 mg tablet Discont inued 500 MG PO Daily December 10, 2023 1:35pm 2023 3:21p m Doxepin 10 mg capsule Discont inued 10 MG PO Daily at bedtime October 08, 2023 12:00a m October 08, 2023 1:27p m FreeTextSi capsule at bedtime Orally Once a day; Note: Source Status: Unknown; Refills: 1; Provider: Bonifacio Crowell ( ) Sulfamethox azole-Trime thoprim (Bactrim Ds) 800-160 mg tablet Discont inued 1 TAB PO Twice daily 17 04January 26, 2024 12:00a m Colleen ry 2024 2:18p m Clopidogrel 75 mg tablet Active 75 MG PO Daily October 31, 2024 10:05a m Unknown Isosorbide Mononitrate 30 mg tablet extended release 24 hr Discont inued 30 MG PO Daily November 02, 2024 9:26am Augus t 2024 9:54a m Doxepin 10 mg capsule Active 10 MG PO Daily at bedtime November 02, 2024 9:26am Unknown Ferrous Sulfate (Ferosul) 325 mg (65 mg iron) tablet Discont inued 0 .ROUTE .COMPLEX November 02, 2024 10:41a m Augus 2024 9:54a m TAKE 1 TABLET BY MOUTH DAILY WITH FOOD Clopidogrel 75 mg tablet Discont inued 0 .ROUTE .COMPLEX r 2024 2:19pm October 20, 2024 8:28a m TAKE 1 TABLET DAILY Semaglutide (Ozempic) 2 mg/dose (8 mg/3 mL) pen injector Active 2 MG SUBCUT every week December 19, 2024 10:25a m Unknown Immunizations Immunization Event Date Not Given Reason Dose Number Nuclear Technologist Lot Number Vaccine Information Statement (VIS) Detail Administration Location COVID-19 Ad26.COV2.S ([employer]) September 04, 2020 [id number] [facility] COVID-19 mRNA-1273 (Moderna) April 25, 2021 COVID-19 Comirnaty (Pfizer) Tri-Sucrose 12+ January 02, 2022 COVID-19 mRNA Bivalent Booster (Pfizer) April 11, 2022 COVID-19 (NOVAVAX) 12Y and older April 11, 2024 COVID-19 (PFIZER) 12Y and older June 16, 2023 Fluzone TIV High-Dose 65YR+ February 28, 2020 Influenza Quadrivalent PF MDCK April 25, 2021 Influenza, Recombinant, Injectable, Pf April 11, 2024 Pneumococcal Conjugate Vaccine, 20 valent May 01, 2023 Pneumococcal Polysacc. Vaccine, 23 valent December 08, 2014 Quadrivalent Influenza April 21, 2017 Quadrivalent Influenza April 11, 2022 Quadrivalent Influenza May 01, 2023 Quadrivalent Influenza January 27, 2017 Quadrivalent Influenza March 25, 2019 Recombinant Influenza Vaccine Quadrivalent April 12, 2020 Recombinant Influenza Vaccine Quadrivalent August 21, 2023 Recombinant Influenza Vaccine Quadrivalent October 07, 2023 RSV, bv, preFa and preFb, pf July 21, 2024 Zoster Vaccine Recombinant, Adjuvanted April 12, 2020 Zoster Vaccine Recombinant, Adjuvanted June 12, 2020 Tetanus, Diphtheria, Pertussis (Tdap) March 28, 2011 Tetanus, Diphtheria, Pertussis (Tdap) October 24, 2023 Tetanus toxoid March 28, 2011 Trivalent Influenza Vaccine March 28, 2011 Trivalent Influenza Vaccine February 28, 2016 Trivalent Influenza Vaccine April 26, 2018 Trivalent Influenza Vaccine April 12, 2020 Trivalent Influenza Vaccine April 25, 2021 Trivalent Influenza Vaccine April 21, 2014 Trivalent Influenza Vaccine April 02, 2022 Procedures Procedure Date Performed Status XR tibia fibula RT 2V* December 08, 2024 12:00am c ompleted [facility] Angio February 02, 2025 12:15pm comp leted February 02, 2025 12:15pm complet ed Relevant Diagnostic Tests and/or Laboratory Data Laboratory Results Test Collection Date/Time Result Date/Time Result Interpretation Reference Range Result Comment Performing Site Corrected White Blood Count January 31, 2025 9:45am January 31, 2025 10:01am 4.3 10*3/uL 4.1-10.5 [facility] [id number] [address] [place] [address] Uncorrect ed WBC Count January 31, 2025 9:45am January 31, 2025 10:01am 4.3 10*3/uL 4.1-10.5 [facility] [id number] [address] [facility] [address] Red Blood Count January 31, 2025 9:45am January 31, 2025 10:01am 4.70 10*6/uL 3.90-5.60 [facility] [id number] [address] [facility] [address] Hemoglobi n January 31, 2025 9:45am January 31, 2025 10:01am 15.4 g/dL 13.0-17.0 [facility] [id number] [address] [facility] [address] Hemoglobi n February 28, 2025 1:45pm February 28, 2025 3:50pm 16.9 g/dL 13.0-17.0 [facility] [id number] [address] [facility] [address] Hematocri t January 31, 2025 9:45am January 31, 2025 10:01am 45.3 % 38.8-50.0 [facility] [id number] [address] [facility] [address] Mean Corpuscul ar Volume January 31, 2025 9:45am January 31, 2025 10:01am 96.5 fL 83.5-101 [facility] [id number] [address] [facility] [address] Mean Corpuscul ar Hemoglobi n January 31, 2025 9:45am January 31, 2025 10:01am 32.8 pg 27.5-35.2 [facility] [id number] [address] [facility] [address] Mean Corpuscul ar Hemoglobi n Concent January 31, 2025 9:45am January 31, 2025 10:01am 34.0 g/dL 32.5-35.6 [facility] [id number] [address] [facility] [address] Red Cell Distribut ion Width January 31, 2025 9:45am January 31, 2025 10:01am 13.3 % 12.0-14.8 [facility] [id number] [address] [facility] [address] Platelet Count January 31, 2025 9:45am January 31, 2025 10:01am 155 10*3/uL 150-450 [facility] [id number] [address] [facility] [address] Mean Platelet Volume January 31, 2025 9:45am January 31, 2025 10:01am 9.0 fL 6.6-10.1 [facility] [id number] [address] [facility] [address] Neutrophi ls (%) (Auto) January 31, 2025 9:45am January 31, 2025 10:01am 61.0 % . [facility] [id number] [address] [facility] [address] Lymphocyt es (%) (Auto) January 31, 2025 9:45am January 31, 2025 10:01am 18.6 % . [facility] [id number] [address] [facility] [address] Monocytes (%) (Auto) January 31, 2025 9:45am January 31, 2025 10:01am 14.0 % . [facility] [id number] [address] [facility] [address] Eosinophi ls (%) (Auto) January 31, 2025 9:45am January 31, 2025 10:01am 5.4 % . [facility] [id number] [address] [facility] [address] Basophils (%) (Auto) January 31, 2025 9:45am January 31, 2025 10:01am 1.0 % . [facility] [id number] [address] [facility] [address] Nucleated RBC Relative Count (auto) January 31, 2025 9:45am January 31, 2025 10:01am 0.2 /100{WB C} 0-0.5 [facility] [id number] [address] [facility] [address] Neutrophi ls # (Auto) January 31, 2025 9:45am January 31, 2025 10:01am 2.6 10*3/uL 1.8-7.7 [facility] [id number] [address] [facility] [address] Lymphocyt es # (Auto) January 31, 2025 9:45am January 31, 2025 10:01am 0.8 10*3/uL Below low normal 1.00-4.8 [facility] [id number] [address] [facility] [address] Monocytes # (Auto) January 31, 2025 9:45am January 31, 2025 10:01am 0.6 10*3/uL 0.0-0.8 [facility] [id number] [address] [facility] [address] Eosinophi ls # (Auto) January 31, 2025 9:45am January 31, 2025 10:01am 0.2 10*3/uL 0.0-0.45 [facility] [id number] [address] [facility] [address] Basophils # (Auto) January 31, 2025 9:45am January 31, 2025 10:01am 0.0 10*3/uL 0.0-0.2 [facility] [id number] [address] [place] 8696070 Prothromb in Time January 31, 2025 9:45am January 31, 2025 10:31am 11.0 s 9.0-12.9 A hematocrit value greater than 55% may lead to inaccurate results in coagulation testing. Patients having hematocrit values >55% require a special collection tube for coagulation studies. Please contact the laboratory at [phone] for redraw instructions . [facility] [id number] [address] [facility] [address] Prothromb Time Internati onal Ratio January 31, 2025 9:45am January 31, 2025 10:31am 1.0 INR Therapeutic Range A) Pre- and Peroperative OAT started two weeks before surgery. NOT HIP SURGERY: 1.5 - 2.5 HIP SURGERY: 2 - 3B) Primary and secondary prevention of venous THROMBOSIS: 2 - 3C) Active venous thrombosis, pulmonary embolismand prevention of recurrent venous thrombosis: 2 - 3D) Prevention of arterial thromboembol ismincluding patients with mechanical heart valves: 3 - 4.5 [facility] [id number] [address] [place] [address] Activated Partial Thrombopl ast Time January 31, 2025 9:45am January 31, 2025 10:31am 36.4 s 25.1-36.5 A hematocrit value greater than 55% may lead to inaccurate results in coagulation testing. Patients having hematocrit values >55% require a special collection tube for coagulation studies. Please contact the laboratory at [phone] for redraw instructions . [facility] [id number] [address] [facility] [address] Blood Urea Nitrogen January 31, 2025 9:45am January 31, 2025 10:36am 25 mg/dL 7-25 [facility] [id number] [address] [place] [address] Creatinin e January 31, 2025 9:45am January 31, 2025 10:36am 1.36 mg/dL Above high normal 0.70-1.30 [facility] [id number] [address] [place] 8[address]6070 Estimated GFR (CKD-EPI) January 31, 2025 9:45am January 31, 2025 10:36am 57.752 mL/Min [facility] [id number] [address] [place] 8[address]6070 Sodium Level January 31, 2025 9:45am January 31, 2025 10:36am 137 mmol/L 136-145 [facility] [id number] [address] [place] [id number] Potassium Level January 31, 2025 9:45am January 31, 2025 10:36am 4.3 mmol/L 3.5-5.1 [facility] [id number] [address] [place] [id number] Chloride Level January 31, 2025 9:45am January 31, 2025 10:36am 101 mmol/L 98-107 [facility] [id number] [address] [place] 8696070 Carbon Dioxide Level January 31, 2025 9:45am January 31, 2025 10:36am 29.4 mmol/L 21.0-31.0 [facility] [id number] [address] [place] 8[address]6070 Anion Gap January 31, 2025 9:45am January 31, 2025 10:36am 10.9 mEq/L 6.0-15.0 [facility] [id number] [address] [place] 8[address]6070 Cholester ol Level January 31, 2025 9:45am January 31, 2025 10:36am 140 mg/dL 140-200 Chol less than 200 mg/dl low riskChol 201-239 mg/dl borderline riskChol 240 mg/dl and greater high risk [facility] [id number] [address] [place] [address]6070 HDL Cholester ol January 31, 2025 9:45am January 31, 2025 10:36am 39 mg/dL 23-92 HDL CHOL ATP-III CLASSIFICATI ON Cardiovascul ar RiskHDL > or equal to 60 mg/dL LOWHDL < 40 mg/dL HIGH [facility] [id number] [address] [facility] [address] Triglycer ides Level January 31, 2025 9:45am January 31, 2025 10:36am 203 mg/dL Above high normal 0-149 TRIG ATP III CLASSIFICATI ONTRIG less than 150 mg/dL NormalTRIG 150-199 mg/dL Borderline highTRIG 200-500 mg/dL High TRIG greater than 500 mg/dL Very highStandard traceable to the Center for Disease Conrtrol and Prevention (CDC) test method. [facility] [id number] [address] [place] 8[address]6070 LDL Cholester ol, Calculate d January 31, 2025 9:45am January 31, 2025 10:36am 60 mg/dL 0-100 LDL ATP III CLASSIFICATI ONLDL less than 100 mg/dL OptimalLDL 100-129 mg/dL Near or above optimalLDL 130-159 mg/dL Borderline highLDL 160-189 mg/dL HighLDL greater than 189 mg/dL Very high [facility] [id number] [address] [facility] [address] VLDL Cholester ol January 31, 2025 9:45am January 31, 2025 10:36am 40 mg/dL [facility] [id number] [address] [place] [address]6070 Cholester ol/HDL Ratio January 31, 2025 9:45am January 31, 2025 10:36am 3.6 <5.0 [facility] [id number] [address] [facility] [address] Testoster one Level February 28, 2025 1:45pm February 28, 2025 4:04pm 2.90 ng/mL 1.75-7.81 [facility] [id number] [address] [place], [place] [id number] Prostate Specific Antigen Total February 28, 2025 1:45pm February 28, 2025 4:08pm 0.140 ng/mL 0.000-4.00 0 Serial tumor marker results determined by assays using different fuel cell binder s or methods may not be comparable.[facility] Laboratory fuel cell binder and method:GABI YI UNICEL DXI, CHEMILUMINES CENT IMMUNOASSAY. [facility] [id number] [address] [place] [address] Pharmacy Creatinin e Clearance (Chem January 31, 2025 9:45am January 31, 2025 10:36am N/A [facility] [id number] [address] [place] [address] Diagnostic Imaging Reports Author eVga Dash [facility] Authored December 08, 2024 7:24 pm Report Dictated Date/Time Dictated By Status Radiology Report December 08, 2024 7:24pm Vega Dash MD completed [facility] [place] [facility] [address] [address] XRay Report Signed Patient: Richard Urena MR#: [id number] : 1960 Acct:[id number] Age/Sex: 64 / M ADM Date: 5 Loc: [facility] Room: Type: [facility] Attending Dr: Palak Merritt [employer]-C Copies to: Palak Merritt [employer]-C~ Ordering Provider: Palak Merritt NP-C Date of Service: 12/08/24 XR/XR tibia fibula RT 2V*: [id number] 2 views right tibia-fibula INDICATION: Abrasion COMPARISON:: None FINDINGS:: Soft tissue swelling identified. No radiopaque foreign body. Postsurgical changes of the arthroplasty appear intact. Degenerative changes at the level ankle noted. XR/XR tibia fibula RT 2V* IMPRESSION: No fractures or dislocation. Impression dictated by: Vega Dash M.D. 12/08/2024 7:25 PM Dictation Location: [place] [address] Transcribed By: [facility] 12/08/241924 Dictated By: Vega Dash MD 12/08/241923 Signed By: <Electronically signed by Vega Dash MD in [place]> 12/08/241924 Vital Signs Vital Reading Result Reference Range Collection Date/Time Height 69 [in_i] December 12, 2024 10:34am Weight 126.26 kg December 12, 2024 10:34am Body Temperature 96.0 [degF] 97.6-99.0 December 12, 2024 10:34am Heart Rate 92 /min 60-100 December 12, 2024 10:34am Respiratory rate 18 /min 12-24 December 12, 2024 10:34am Oxygen saturation by Pulse oximetry 93 % 95-100 December 12, 2024 10:3 4am BP Systolic 124 mm[Hg] 100-140 December 12, 2024 10:34am BP Diastolic 63 mm[Hg] 60-100 December 12, 2024 10:34am BMI (Body Mass Index) 41.1 kg/m2 November 272024 10:34am Height 69 [in_i] December 19, 2024 9:57am Weight 124.80 kg December 19, 2024 9:57am Heart Rate 74 /min 60-100 December 19, 2024 9:57am Respiratory rate 18 /min -24 December 19, 2024 9:57am BP Systolic 129 mm[Hg] 100-140 December 19, 2024 9:57am BP Diastolic 76 mm[Hg] 60-100 December 19, 2024 9:57am BMI (Body Mass Index) 40.6 kg/m2 November 282024 9:57am Height 70 [in_i] February 02 11:05am Weight 124.00 kg February 02 11:05am Body Temperature 98.1 [degF] 97.6-99.0 February 02, 2025 11:05am Heart Rate 70 /min 60-100 February 02 3:44pm Respiratory rate 12 /min -February 02, 2025 3:44pm Oxygen saturation by Pulse oximetry 94 % 95-100 February 02, 2025 3:4 4pm BP Systolic 129 mm[Hg] 100-140 February 02 3:44pm BP Diastolic 71 mm[Hg] 60-100 February 02 3:44pm Advance Directives Advance Directive Response Recorded Date/ Time Advance Directives No August 06, 2023 10:20am Insurance Providers Guarantor Richard Prieto Ayanna Address [address] [facility] [address] Contact Info. Home Phone: [phone] Payer Policy Id Subscriber's Name Subscriber Id Effectiv e Date Expiration Date Medicare [id number] Richard Prieto Ayanna [id number] Encounters Encounter Location(s) Arrival/Admit Date Discharge/Depart Date Provider(s) Departed Clinical -X-Ray [facility] December 08, 2024 3:24pm December 08, 2024 3:25pm SILVIO Medina Departed Physician/Prov ider Office Visit -[facility] December 12, 2024 2:50pm December 12, 2024 3:56pm Socrates Valdovinos DO Departed Physician/Prov ider Office Visit -[facility] December 19, 2024 9:34am December 19, 2024 10:32am Rafael Holbrook MD Departed Clinical -Pre-Surgical Testing January 31, 2025 9:19am January 31, 2025 9:20am Lisa Donnelly MD Departed Surgical Day Care -[facility] February 02, 2025 10:36am February 02, 2025 4:32pm Lisa Donnelly MD Departed Clinical -Lab [facility] February 28, 2025 1:40pm February 28, 2025 1:41pm Rosey Dubose MD Recent Diagnosis Onset Date Admit Date Abrasion, right lower leg, initial encounter Unk nown December 12, 2024 2:50pm Contusion of right lower leg Unknown Nov 2:50pm BMI 40.0-44.9, adult Unknown December 19, 2024 9:34am Essential hypertension Unknown November 9:34am Fatty liver Unknown December 19, 2024 9:34am Mixed hyperlipidemia Unknown December 19, 2024 9:34am Obstructive sleep apnea Unknown November 9:34am Prediabetes Unknown December 19, 2024 9:34am Assessments Author Rafael Holbrook [facility] Authored December 19, 2024 10:3 5am Highest weight: 311.0 lbs. H e is down 35.9 lbs. today. Start weight: 304.1 lbs. He is down 29.0 lbs. today with a weight of 275.1 lbs. He is down 3.1lbs since last visit on 09/28/2024. Starting Date: 07-18-2022. 1. Abnormal weight gain-significantly improved. 2. Morbid obesity-significant improvement of greater than a 7.5% weight loss since starting our program and with taking Ozempic 2 mg through patient assistance without side effects. He now feels his mood is better, he is increase his activity and exercise and is starting to lose weight again. Before that he had a significant weight regain of about 16.7 pounds from his lowest weight with our program. 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 He previously was not very active because of his back but is now doing a home program called [employer] which is an online exercise program through his insurance and he plans on starting balance exercises. He had previously gotten weight regain with not getting in this 45 minutes of bike daily with his low back pain. His back specialist would like to get his weight down to 200 pounds for his back. He should consider bariatric surgery. He may have been diabetic in the past based on multiple increase blood sugars. His most recent fasting blood sugar was 86 and his A1c was down to 5.4. He should minimize or stop wine/beer intake because even with a 10% weight loss he still has significant fatty liver by FibroScan S3/F0-F1. He should continue to eat healthy whole foods and work closely with the wastewater project manager. He had a negative recent colonoscopy. He should continue to take time to meal prep. He is still doing very good with regular exercise 1 hour a day at [employer] doing both strength and cardio. He should continue to treat with long-term lifestyle changes of improved nutrition, increased exercise and activity, stress reduction, adequate sleep and behavioral modification versus short-term dieting. We cannot consider phentermine with his history of possible CAD. He has considered the bariatric surgery program at the [facility]. 3. Prediabetes he had an A1c up to 6.2 but recent A1c better now normal at 5.4/he has had multiple blood sugars that have been in the diabetic range but may not been fasting. He notes at the [facility] he told he was diabetic. Continue treatment with long-term healthy lifestyle change, decreased simple sweets and refined starches, increased exercise and activity and long-term weight loss. He needs close long-term follow-up for this condition to prevent diabetes. 4. Hypertension-borderline controlled. He will continue to treat with a low-salt diet, decreased processed and restaurant foods, healthy lifestyle changes and achieve long-term weight loss. Monitor outside the office for confirmation of good control. 5. Obstructive sleep apnea-severe requiring CPAP. Should be improving with good sleep hygiene and weight loss. 6. OA knees-treat with healthy exercise is now working out at [employer] every other day and weight loss. He is status post right knee replacement. 7. History of CVA-treat with healthy lifestyle changes and good control of his blood pressure. 8. Probable CAD-currently following up with cardiology and doing better with his present treatment. His wrist should decrease with healthier lifestyle changes and Ozempic. 9. Chronic low back pain-status post multiple surgeries. He is on disability. He will continue to follow-up with pain management. Treat with weight loss and healthy lifestyle change. 10. Mixed hyperlipidemia-still abnormal with triglycerides of 201 and HDL slightly low at 39 but improving with overall much healthier eating and high-dose atorvastatin 80 mg. His LDL is at goal at 61. He will continue to treat with decreasing the simple sweets, added sugars, refined starches, and bad/added fats, increasing activity and exercise and continued long-term weight loss. 11. Fatty liver/fib 4 score of 2.18/FibroScan 06/12/2024 S3/F0-F1 despite greater than 10% weight loss with our program-he should avoid alcohol and continue to treat with healthy lifestyle changes and try to keep a greater than 10% weight loss. He should consider bariatric surgery. 12. Metabolic syndrome-treat with long-term healthy lifestyle changes, behavioral changes, healthy nutritional changes, increased activity and exercise and achieve long-term weight loss. Follow up with me in 12 weeks. New labs needed: Up-to-date. He will continue regular blood work with his PCP Dr. Valdovinos, cardiology and GI. Plan of Treatment Author Socrates Valdovinos [facility] Authored December 12, 2024 3:50 pm We discussed he has contusio n/abrasion of the right anterior and lateral fernando. I do not see any evidence of compartment syndrome. Discussed this is going to take many weeks to fully resolve but each week should slowly be better. He can cautiously do activity as tolerated using commonsense. Discussed he should elevate is much as possible, use ice, continue pain medications as per Melania pain management. He should use the Steve wrap compression for comfort and swelling as needed. For the abrasion right leg he should use antibiotic ointment following very gentle soap and water cleanse and pat dry and a nonstick bandage twice daily until healed. See dictation above I did offer to recheck him in a month even if just for reassurance. However, he elected to continue conservative care and RTO as needed. I also offered physical therapy referral and he declined because of cost. He will call if he changes his mind. RTO as needed. Worrisome symptoms discussed. Future Tests Future scheduled test information is unavailable Pending Tests Pending diagnostic test information is unavailable Future Visits Future appointment information is unavailable Referrals to Other Providers Referral information is unavailable Future Procedures Procedure Name Ordered Date Scheduled Date Cardiology PRN Orders February 02, 2025 12:30pm A ugust 2024 12:30pm Discharge Order February 02, 2025 12:30pm February 02, 2025 12:30pm Future Medications Future medication information is unavailable Patient Instructions Instruction Admit Date Taking care of cuts, scrapes, and punctu re wounds December 12, 2024 2:50pm Know your Meds February 02, 2025 10: 36am Goals Acute Goals Author Authored Date Experience reduced anxiety * Identifies current stressors * Develops effective coping behaviors * Uses support services as appropriate [facility] February 02, 2025 4:38pm Remain free of complications [facility] February 02, 2025 4:38pm Understand preop/postop care/sensations * Verbalizes understanding of surgical procedure * Verbalizes understanding of sensations following surgery * Verbalizes understanding of post-op treatment plan [facility] February 02, 2025 4:38pm Report pain at tolerable lev el * Uses pain scale appropriately * Identify options for pain control - Analgesics - Narcotics - Non-medication measures [facility] February 02, 2025 4:38pm Absence of imbalanced fluid volume s/s [facility] February 02, 2025 4:38pm Absence of physical injury [facility] February 02, 2025 4:38pm Absence of surgical site infection [facility] February 02, 2025 4:38pm
--- OUTSIDE RECORDS SUMMARY | 2025-03-01 10:54 | XMS_ITS | Encounter Summary ---
Author Organization [facility] Address [address] [place] [address] Care Team Providers Care Bottom Sander Name Role Phone Socrates Valdovinos DO Primary Care Provider [phone] Wilton Feliz MD Unavailable [phone] Source Comments In the event this information is protected by the Federal Confidentiality of Alcohol and Drug AbusePatient Records regulations: The Federal rules restrict any use of the information to criminally investigate or prosecute any alcohol or drug abuse patient.[facility] Reason for Visit * Reason Comments Patient Question Encounter Details Date Type Department Care Team (Late st Contact Info) Description 02/23/2025 Telephone Neurology [address] [place] [address] Shree Banks MD [address] [place] [address] Patient Question Social History Tobacco Use Types Packs/Day Years [...] money to buy more. Never true 11/23/19 22 Within the past 12 months, t he [...] place to sleep or slept in a snf (including now)? No 11/22/2021 Area Deprivation Index Answer Date Arsalan rded National Score (1-100), lower number is lower ri sk 87 07/20/2024 State Score (1-10), lower number is lower risk 8 07/20/2024 Data from: https://www.neighborhoodatlas.medicine.[facility].edu/. Last address used for calculation [address] 07/20/2024 Sex and Gender Information Value Date Recorded Sex Assigned at Male 01/28/2021 2:16 PM EDT Legal Sex Male 9:02 AM EST Gender Identity Male 01/28/2021 2:16 PM EDT Sexual Orientation Straight 01/28/2021 2: 16 PM EDT documented as of this encounter Functional Status * Are you [...] Date Author No 01/06/2022 6:27 PM EDT Radha Escamilla RN documented in this encounter Miscellaneous Notes * Telephone Encounter - Yolanda Conde - 02/23/2025 9:30 AM EDT Pt phoned to follow up with surgery scheduling. Pt unaware of appt 03/08, have relayed this to Pt. Pt asking if needs to bring anything to appt. Please advise Pt phone #[phone] documented in this encounter Plan of Treatment Upcoming Encounters Date Type Department Care Team (Late st Contact Info) Description 03/08/2025 2:00 PM EDT Office Visit Neurosurgery [address] [place] [address] Shree Banks MD [address] [place] [address] follow up documented as of this encounter Visit Diagnoses Not on filedocumented in this encounter Care Teams Bottom Sander Relationship Specialty Start Date End Date Socrates Valdovinos DO [address] [place] [address] PCP - General 02/04/10 Wilton Feliz MD [address] [facility] [address] [place] [address] Neurology 08/23/24 documented as of this encounter
--- OUTSIDE RECORDS SUMMARY | 2025-03-01 10:54 | XMS_ITS | Encounter Summary ---
Author Organization [facility] Address [address] [place] [address] Phone Care Team Providers Care Cloth Weigher Name Role Phone Socrates Valdovinos DO Primary Care Provider [phone] Encounter Details Date Type Department Care Team (Late st Contact Info) Description 01/06/2022 Orders Only [facility] [address] [place] [address] Conversion, Onbase Social History Tobacco Use Types Packs/Day Years Used Date Smoking Tobacco: Never Assessed Sex and Gender Information Value Date Recorded Sex Assigned at Not on file Legal Sex Male 1:53 PM EST Gender Identity Not on file Sexual Orientation Not on file documented as of this encounter Plan of Treatment Upcoming Encounters Date Type Department Care Team (Late st Contact Info) Description 04/24/2025 11:30 AM EDT Office Visit [place] [id number] [phone] Lisa Donnelly MD 7[address] [facility] 2, [address] [address] Scheduled Orders Name Type Priority Associated Diagnoses Orde r Schedule OUTSIDE LAB SCAN Lab Ordered: 01/06/2022 documented as of this encounter Visit Diagnoses Not on filedocumented in this encounter Care Teams Cloth Weigher Relationship Specialty Start Date End Date Socrates Valdovinos DO PCP - General 05/09/20 documented as of this encounter
--- OUTSIDE RECORDS SUMMARY | 2025-03-01 10:54 | XMS_ITS | Encounter Summary ---
Author Organization [facility] Address [address] [place] [address] Phone Care Team Providers Care Manager Social Media Name Role Phone Socrates Valdovinos DO Primary Care Provider [phone] Encounter Details Date Type Department Care Team (Late st Contact Info) Description 05/03/2022 Orders Only [facility] [address] [place] [address] Conversion, Onbase Social History Tobacco Use Types [...] Description 04/24/2025 11:30 AM EDT Office Visit [facility] [address] [phone] Lisa Donnelly MD 703 [facility] 2, [address] [address] Scheduled Orders Name Type Priority Associated Diagnoses Orde r Schedule OUTSIDE LAB SCAN Lab Ordered: 05/03/2022 documented as of this encounter Visit Diagnoses Not on filedocumented in this encounter Care Teams Manager Social Media Relationship Specialty Start Date End Date Socrates Valdovinos DO PCP - General 05/09/20 documented as of this encounter
--- OUTSIDE RECORDS SUMMARY | 2025-03-01 10:54 | XMS_ITS | Encounter Summary ---
Author Organization [facility] Address [address] [place] [address] Care Team Providers Care Loom Overhauler Name Role Phone Socrates Valdovinos DO Primary Care Provider [phone] Wilton Feliz MD Unavailable [phone] Source Comments In the event this information is protected by the Federal Confidentiality of Alcohol and Drug AbusePatient Records regulations: The Federal rules restrict any use of the information to criminally investigate or prosecute any alcohol or drug abuse patient.[facility] Reason for Visit * Reason Comments Radiology CT Encounter Details Date Type Department Care Team (Late st Contact Info) Description 11/24/2021 Radiology [facility] Radiology [address] [place] [address] Yasemin Palomino RT(R) Radiology CT Social History Tobacco Use Types Packs/Day Years [...] 11/22/2021 PHQ-2 Answer Date Recorded PHQ-2 score 4 10/02/2021 Hunger Vital Sign Answer Date Recorded Within [...] place to sleep or slept in a senior living (including now)? No 11/22/2021 Area Deprivation Index Answer Date Arsalan rded National Score (1-100), lower number is lower ri sk Not on file 01/29/2021 State Score (1-10), lower number is lower risk N ot on file 01/29/2021 Data from: https://www.neighborhoodatlas.medicine.[facility].edu/. Last address used for calculation Not on file 01/29/2021 Sex and Gender Information Value Date Recorded Sex Assigned at Male 01/28/2021 2:16 PM EDT Legal Sex Male 9:02 AM EST Gender Identity Male 01/28/2021 2:16 PM EDT Sexual Orientation Straight 01/28/2021 2: 16 PM EDT COVID-19 Exposure Response Date Recorded In the last 10 days, have yo u been in contact with someone who was confirmed or suspected to have Coronavirus/COVID-19? No / Unsure 11/22/2021 3:45 AM EDT documented as of this encounter Functional Status * Are you deaf or do you have serious difficulty hearing? Answer Date of Assessment Author No 09/22/2021 2:54 PM EDT Constance Maravilla RN * Are you blind or do you have serious difficulty seeing, even when wearing glasses? Answer Date of Assessment Author No 09/22/2021 2:54 PM EDT Constance Maravilla RN * Do you have serious difficulty walking or climbing stairs? Answer Date of Assessment Author No 09/22/2021 2:54 PM EDT Constance Maravilla RN * Do you have difficulty dressing or bathing? Answer Date of Assessment Author No 09/22/2021 2:54 PM EDT Constance Maravilla RN * Because of a physical, mental, or emotional condition, do you have difficulty doing errands alone such as visiting a doctor's office or shopping? Answer Date of Assessment Author Yes 09/22/2021 2:54 PM EDT Constance Maravilla RN documented as of this encounter Mental Status * Because of a physical, mental, or emotional condition, do you have serious difficulty concentrating, remembering, or making decisions? Answer Entry Date Author No 09/22/2021 2:54 PM EDT Constance Maravilla RN documented in this encounter Progress Notes * Yasemin Palomino CT - 11/24/2021 8:57 AM EDT Radiology Service Progress Note PATIENT NAME: Richard Urena DATE OF SERVICE: November 24, 2021 TIME: 8:57 AM PATIENT IDENTITY VERIFICATION COMPLETED USING TWO (2) IDENTIFIERS: Name and Date of confirmedby patient verbally. FALL SCREENING: Has the patient had 2 falls in the last year or 1 fall with injury or currently using an Ambulatory Assistive Device (Walker, Cane, Wheelchair, Crutches, etc.)? No PATIENT GENDER DATA: Male PATIENT RELEVANT IMPLANT DATA REVIEWED: Not Applicable RADIOLOGY DEPARTMENT: CT; Exam(s) Completed: Spine PERIPHERAL IV DATA: Not applicable SIGNED BY: RONNIE Neal November 24, 2021 8:57 AM documented in this encounter Plan of Treatment Upcoming Encounters Date Type Department Care Team (Late st Contact Info) Description 03/08/2025 2:00 PM EDT Office Visit Neurosurgery [address] [place] [address] Shree Banks MD [address] [place] [address] follow up documented as of this encounter Visit Diagnoses Not on filedocumented in this encounter Care Teams Loom Overhauler Relationship Specialty Start Date End Date Socrates Valdovinos DO [address] [place] [address] PCP - General 02/04/10 Wilton Feliz MD [address] [facility] [address] [place] [address] Neurology 08/23/24 documented as of this encounter
--- OUTSIDE RECORDS SUMMARY | 2025-03-01 10:54 | XMS_ITS | Patient Health Record ---
Author Organization [facility] Address [address] [place] [address] Care Team Providers Care Steam Finisher Name Role Phone Dr. Socrates Valdovinos Primary Care Provider Unavailab viet Palak Decker Unavailable Zack Ariana Unavailable [phone] Allergies Allergen (clinical drug ingredient) Drug/Non Drug Allergy documented on EMR Reaction Allergy Type Onset Date Status Latex Latex rash Allergy Active Penicillin anaphylaxis Drug Allergy Acti ve Results Component Value Reference Range Notes X ray : Leg, right Reviewed date:12/10/2024 04:58:45 PM Interpretation:Negative Performing Lab: Notes/Report: Negative Reason For Referral No Information Medications Medication SIG (Take, Route, Frequency, Duration) Notes Start Date End Date Status Telmisartan-HCTZ 40-12.5 MG 1 tablet Ora lly Once a day Active Furosemide 20 MG 1 tablet Orally Once a day Active Mirtazapine 30 MG 1 tablet at bedtime Orally Once a day Active Nitroglycerin 0.3 MG as directed Sublingual Active Plavix 75 MG 1 tablet Orally Once a day Active Ajovy 225 MG/1.5ML as directed Subcutaneous Active Testosterone Active HYDROcodone-Acetaminophen 5-325 MG 1 tablet as needed Orally every 6 hrs Active Albuterol Sulfate HFA 108 (90 Base) MCG/ACT 2 puff as needed Inhalation every 4 hrs 10/07/2023 Active Nortriptyline HCl Ac tive Pregabalin 200 MG 1 capsule 1 to 3 brianna rs before bedtime Orally three times a day Active Ozempic (2 MG/DOSE) Active Creon Active Doxazosin Mesylate 4 MG Oral Active Methocarbamol 500 MG Oral Active Finasteride 5 MG Oral Act grace Metoprolol Tartrate 50 MG 1 tablet with food Orally Twice a day Active Promethazine HCl 25 MG 1 tablet as neede d Orally every 12 hrs Active Botox Active Magnesium Gluconate Active Atorvastatin Calcium 80 MG Oral Active valACYclovir HCl 500 MG Oral Active Omeprazole 20 MG 1 capsule 30 minutes before morning meal Orally Once a day Active Immunizations Vaccine Route Administration Date Status Comme nts Flu Vaccine (Given in Past) Unspecified Unknown 10/05/2023 Administered TDAP: BOOSTRIX IM Intramuscular 10/24/2023 Administered z2018 Fluarix Quad 0.5mL PFS (0.5mL Admin) 6 months & older IM Intramuscular 03/25/2019 Administered z9 FluBLOK Quad 0.5mL PFS (0.5mL Admin) 18 y/o & older Unknown 01/20/2023 Refused z2023 FluBLOK, 18 y/o & Older, Quad PDF (0.5mL Admin) Unknown 08/21/2023 Administered z2023 FluBLOK, 18 y/o & Older, Quad PDF (0.5mL Admin) Unknown 10/07/2023 Administered z2023 FluBLOK, 18 y/o & Older, Quad PDF (0.5mL Admin) Unknown 10/07/2023 Administered Social History Tobacco Use: Social History Observation Description Date Details (start date - stop date) Never Smoker NA - NA Tobacco Control (Standard) Question Answer Notes Tobacco use: Nonsmoker Problems Problem Type SNOMED Code ICD Code Onset Dates Problem Status W/U Status Risk Notes Problem Body mass index 40+ - severely obese (001735224) Morbid obesity with BMI of 40.0-44.9, adult (Z68.41) Active confirmed Problem Essential hypertension (30378591) Essential (primary) hypertension (I10) Active confirmed Problem Migraine (41047059) Migraine (G43.909) Active confirmed Problem Environmental allergy (823935438) Environmental allergies (Z91.09) Active confirmed Problem Hypertension (41937307) Hypertension (I10) Active confirmed Problem Hyperlipidemia (60498939) Hyperlipidemia (E78.5) Active confirmed Problem Gastroesophageal reflux disease (561922051) GERD (gastroesophageal reflux disease) (K21.9) Active confirmed Problem Insomnia (562252472) Insomnia (G47.00) Active confirmed Problem Morbid obesity (151162886) Obesity, morbid, BMI 40.0-49.9 (E66.01) Active confirmed Problem Back pain (185433199) Back pain (M54.9) Active confirmed Vital Signs Temperature 98.0 degrees Fahrenheit 12/08/2024 Respiratory Rate 16 /min 12/08/2024 Oximetry 97 12/08/2024 Blood pressure diastolic 64 mm Hg 12/08/2024 Height 68 in 12/08/2024 Blood pressure systolic 118 mm Hg 12/08/2024 Weight 276 lbs 12/08/2024 BMI 41.96 kg/m2 12/08/2024 Encounters Encounter Location Date Provider Diagnosis [id number] [facility] [address] [place] [address] 12/08/2024 Palak Merritt Abrasion of right lower extremity, initial encounter S80.811A ; Status post fall Z91.81 and Obesity, morbid, BMI 40.0-49.9 E66.01 [address] [facility] [address] [place] [address] 12/10/2024 Ariana Dixon Assessments Encounter Date Diagnosis (ICD Code) Assessment Notes Treatment Notes Treatment Clinical Notes Section Notes 12/08/2024 Status post fall (ICD-10 - Z91.81) Preventing Falls: Care Instructions material was published For any further concerns, please follow up with PCP. For any urgent/emergent signs and symptoms, please seek immediate care at nearest UC/ED for elevated level of care. 12/08/2024 Abrasion of right lower extremity, initial encounter (ICD-10 - S80.811A) Scrapes (Abrasions): Care Instructions material was published Complete the entire course of antibiotics as prescribed, even when symptoms have improved, to prevent a relapse of infection and the development of antibiotic resistance. Will order xray at this visit. [facility] will call with results once available. Imaging will be performed outside of [facility] and patient will receive third libertarian bill separate from [facility]. Patient verbalized understanding and agrees to plan of care. For any urgent/emergent signs and symptoms, please seek immediate care at nearest UC/ED for elevated level of care. Scrapes (abrasions) are wounds where your skin has been rubbed or torn off. Most scrapes do not go deep into the skin, but some may remove several layers of skin. Scrapes usually don't bleed much, but they may ooze pinkish fluid. Scrapes on the head or face may appear worse than they are. They may bleed a lot because of the good blood supply to this area. Most scrapes heal well and may not need a bandage. They usually heal within 3 to 7 days. A large, deep scrape may take 1 to 2 weeks or longer to heal. A scab may form on some scrapes. Follow-up care is a maldonado part of your treatment and safety. Be sure to make and go to all appointments, and call your doctor if you are having problems. It's also a good idea to know your test results and keep a list of the medicines you take. How can you care for yourself at home?If your doctor told you how to care for your wound, follow your doctor's instructions. If you did not get instructions, follow this general advice:Wash the scrape with clean water 2 times a day. Don't use hydrogen peroxide or alcohol, which can slow healing.You may cover the scrape with a thin layer of petroleum jelly, such as Vaseline, and a nonstick bandage.Apply more petroleum jelly and replace the bandage as needed.Prop up the injured area on a pillow anytime you sit or lie down during the next 3 days. Try to keep it above the level of your heart. This will help reduce swelling.Be safe with medicines. Take pain medicines exactly as directed.If the doctor gave you a prescription medicine for pain, take it as prescribed.If you are not taking a prescription pain medicine, ask your doctor if you can take an [id number]-[id number] medicine.When should you call for help?Call your doctor now or seek immediate medical care if: You have signs of infection, such as:Increased pain, swelling, warmth, or redness around the scrape.Red streaks leading from the scrape.Pus draining from the scrape.A fever.The scrape starts to bleed, and blood soaks through the bandage. Oozing small amounts of blood is normal.Watch closely for changes in your health, and be sure to contact your doctor if the scrape is not getting better each day. 12/08/2024 Obesity, morbid, BMI 40.0-49.9 (ICD-10 - E66.01) Learning About Healthy Weight material was published Continue healthy eating and exercise. May follow up with [facility] via a telehealth visit at [email or web address]/service [email or web address]/telenutrition to help with dietary changes to lower BMI. , Learning About Healthy Weight material was published 12/08/2024 Other Mupirocin material was published Visit summary given to and discussed with patient and/or parent who verbalizes understanding and agreement with plan of care. Thank you for your visit. Please look for the satisfaction survey that you will receive via email. We look forward to receiving your feedback regarding your experience at [facility]. Plan Of Treatment No Information Insurance Providers Payer Name Payer Address Payer Phone Subscriber Number Group Number Insured Name Patient Relationship to Insured Coverage Start Date Coverage End Date Medical [facility] [address] [place] [address] [id number] Richard Urena Self - patient is the insured Medications Administered Medication Instructions Date of Administration Dosage Notes Kenalog-40 01/20/2023 40 mg Medical (General) History Medical History History ICD Code Morbid obesity with BMI of 40.0-44.9, ad ult Z68.41 Migraine G43.909 Hypertension I10 Hyperlipidemia E78.5 Back pain M54.9 GERD (gastroesophageal reflux disease) K 21.9 Insomnia G47.00 Migraine G43.909 History of kidney stones Z87.442 History of stroke Z86.73 Surgical History Surgery Date(Month/Year) knee replacement - right Lithotripsy X 6 Shoulder - Rotator Cuff - left Lower Lumbar Back L4 - L5 Surgery Left Knee Replacement Cervical Neck Surgery Shoulder Replacement - right Hospitalization History Reason Date(Month/Year) Stroke 07/2013 See surgical history
--- OUTSIDE RECORDS SUMMARY | 2025-03-01 10:54 | XMS_ITS | Encounter Summary ---
Author Organization [facility] Address [address] [place] [address] Phone Care Team Providers Care Traffic Maintenance Officer Name Role Phone Socrates Valdovinos DO Primary Care Provider [phone] Encounter Details Date Type Department Care Team (Late st Contact Info) Description 10/03/2022 Orders Only [facility] [address] [place] [address] Conversion, Onbase Social History Tobacco Use Types [...] Description 04/24/2025 11:30 AM EDT Office Visit [facility] [address] [phone] Lisa Donnelly MD 703 [facility] 2, [address] [address] Scheduled Orders Name Type Priority Associated Diagnoses Orde r Schedule OUTSIDE LAB SCAN Lab Ordered: 10/03/2022 documented as of this encounter Visit Diagnoses Not on filedocumented in this encounter Care Teams Traffic Maintenance Officer Relationship Specialty Start Date End Date Socrates Valdovinos DO PCP - General 05/09/20 documented as of this encounter
--- OUTSIDE RECORDS SUMMARY | 2025-03-01 10:54 | XMS_ITS | Encounter Summary ---
Author Organization [facility] Address [address] [place] [address] Care Team Providers Care Steelworker Name Role Phone Socrates Valdovinos DO Primary Care Provider [phone] Wilton Feliz MD Unavailable [phone] Source Comments In the event this information is protected by the Federal Confidentiality of Alcohol and Drug AbusePatient Records regulations: The Federal rules restrict any use of the information to criminally investigate or prosecute any alcohol or drug abuse patient.[facility] Encounter Details Date Type Department Care Team (Late st Contact Info) Description 10/23/2021 Get Medical Advice Neurosurgery [address] [place] [address] Shree Banks MD [address] [place] [address] Richard Urena video conference this morning Social History Tobacco Use Types Packs/Day Years Used Date Smoking Tobacco: Never Smokeless Tobacco: Never Alcohol Use Standard Drinks/Week Comments Yes 0 (1 standard drink = 0.6 oz pur e alcohol) 2 glasses of wine per day. PHQ-2 Answer Date Recorded PHQ-2 score 4 10/02/2021 Area Deprivation Index Answer Date Arsalan rded National Score (1-100), lower number is lower ri sk Not on file 01/29/2021 State Score (1-10), lower number is lower risk N ot on file 01/29/2021 Data from: https://www.neighborhoodatlas.medicine.[facility].edu/. Last address used for calculation Not on [...] suspected to have Coronavirus/COVID-19? No / Unsure 10/09/2021 11:13 AM EDT documented as of this encounter Functional Status * Are you deaf or do you have serious difficulty hearing? Answer Date of Assessment Author No 09/22/2021 2:54 PM EDT Ida Maravilla RN * Are you blind or [...] Constance Maravilla RN documented in this encounter Plan of Treatment Upcoming Encounters Date Type Department Care Team (Late st Contact Info) Description 03/08/2025 2:00 PM EDT Office Visit Neurosurgery [address] [place] [address] Shree Banks MD [address] [place] [address] follow up documented as of this encounter Visit Diagnoses Not on filedocumented in this encounter Additional Health Concerns Infection Onset Date Last Indicated Resolved Time COVID-19 Rule-Out 11/22/2021 11/22/2021 11/22/2021 2:40 AM EDT documented as of this encounter Care Teams Steelworker Relationship Specialty Start Date End Date Socrates Valdovinos DO [address] [place] [address] PCP - General 02/04/10 Wilton Feliz MD [address] [facility] [address] [place] [address] Neurology 08/23/24 documented as of this encounter
--- OUTSIDE RECORDS SUMMARY | 2025-03-01 10:54 | XMS_ITS | Encounter Summary ---
Author Organization [facility] Address [address] [place] [address] Phone Care Team Providers Care Truck Farmer Name Role Phone Socrates Valdovinos DO Primary Care Provider [phone] Encounter Details Date Type Department Care Team (Late st Contact Info) Description 07/30/2023 Scanned Document [facility] [address] [place] [phone] Scanning, Generic Provider Social History Tobacco Use Types Packs/Day Years [...] Description 04/24/2025 11:30 AM EDT Office Visit [facility] [address] [phone] Lisa Donnelly MD 703 [facility] 2, [address] [address] documented as of this encounter Visit Diagnoses Not on filedocumented in this encounter Care Teams Truck Farmer Relationship Specialty Start Date End Date Socrates Valdovinos DO PCP - General 05/09/20 documented as of this encounter
--- OUTSIDE RECORDS SUMMARY | 2025-03-01 10:55 | XMS_ITS | Encounter Summary ---
Author Organization [facility] Address [address] [place] [address] Care Team Providers Care Donations Attendant Name Role Phone Socrates Valdovinos MD Primary Care Provider [phone] Kristi Blake Unavailable Reason for Visit * Reason Comments Med Refill Encounter Details Date Type Department Care Team (Late st Contact Info) Description 09/17/2024 Refill [facility] [place] [address] [place] [address] Kristi Blake PA [address] [place] [address] Radiculopathy, lumbosacral region Social History Tobacco Use Types Packs/Day Years Used Date Smoking Tobacco: Never Smokeless Tobacco: Never Alcohol Use Standard Drinks/Week Comments Yes 0 (1 standard drink = 0.6 oz pur e alcohol) AUDIT-C Answer Date Recorded Q1: How often do you have a drink containing alcohol? 4 or more times a week 10/29/2023 Q2: How many drinks containi ng alcohol do you have on a typical day when you are drinking? 1 or 2 Q3: How often do you have si x or more drinks on one occasion? Never 10/29/2023 Sex and Gender Information Value Date Recorded Sex Assigned at Male 10/24/2023 9:51 PM EDT Legal Sex Male 6:58 PM EDT Gender Identity Male 10/24/2023 9:51 PM EDT Sexual Orientation Bisexual 10/24/2023 9: 51 PM EDT documented as of this encounter Miscellaneous Notes * Telephone Encounter - Narayan Russo MA - 09/21/2024 8:29 AM EDT OARRS reviewed due now * Telephone Encounter - DARIEN Smith - 09/20/2024 2:02 PM EDT Patient called and left message requesting refill of pregabalin 200mg, TID be sent to [facility] in [place]. Pt documented in this encounter Plan of Treatment Upcoming Encounters Date Type Department Care Team (Late st Contact Info) Description 03/06/2025 9:20 AM EDT [facility] [address] [place] [address] Rosey Dubose MD [address] [place] [address] 03/06/2025 10:30 AM EDT Office [facility] [address] [place] [address] Abdi Mckeon PA [address] [place] [place] [address] documented as of this encounter Visit Diagnoses Diagnosis Radiculopathy, lumbosacral region Thoracic or lumbosacral neuritis or radiculitis, unspecified documented in this encounter Care Teams Donations Attendant Relationship Specialty Start Date End Date Socrates Valdovinos MD [address] [place] [address] PCP - General Family Medicine 10/29/23 Kristi Blake PA [address] [place] [address] Physician Apparatus Cleaner Neurology 09/08/24 documented as of this encounter
--- OUTSIDE RECORDS SUMMARY | 2025-03-01 10:55 | XMS_ITS | Encounter Summary ---
Author Organization [facility] Address [address] [place] [address] Care Team Providers Care Cnc Supervisor Name Role Phone Socrates Valdovinos DO Primary Care Provider [phone] Wilton Feliz MD Unavailable [phone] Source Comments In the event this information is protected by the Federal Confidentiality of Alcohol and Drug AbusePatient Records regulations: The Federal rules restrict any use of the information to criminally investigate or prosecute any alcohol or drug abuse patient.[facility] Encounter Details Date Type Department Care Team (Late st Contact Info) Description 12/28/2024 Patient Msg Neurosurgery [address] [place] [address] Shree Banks MD [address] [place] [address] Appointment Request Social History Tobacco Use Types Packs/Day Years [...] to sleep or slept in a senior care (including now)? No 11/22/2021 Area Deprivation Index Answer Date Arsalan rded National Score (1-100), lower number is lower ri sk 87 07/20/2024 State Score (1-10), lower number is lower risk 8 07/20/2024 Data from: https://www.neighborhoodatlas.medicine.[facility].edu/. Last address used for calculation [address] 07/20/2024 Sex and Gender Information Value [...] Radha Escamilla RN documented in this encounter Plan of Treatment Upcoming Encounters Date Type Department Care Team (Late st Contact Info) Description 03/08/2025 2:00 PM EDT Office Visit Neurosurgery [address] [place] [address] Shree Banks MD [address] [place], [place] [phone] follow up documented as of this encounter Visit Diagnoses Not on filedocumented in this encounter Care Teams Cnc Supervisor Relationship Specialty Start Date End Date Socrates Valdovinos DO [address] [place] [address] PCP - General 02/04/10 Wilton Feliz MD [address] [place] [address] Neurology 08/23/24 documented as of this encounter
--- OUTSIDE RECORDS SUMMARY | 2025-03-01 10:55 | XMS_ITS | Encounter Summary ---
Author Organization [facility] Address [address] [place] [address] Care Team Providers Care Web Page Developer Name Role Phone Socrates Valdovinos MD Primary Care Provider Kristi Blake Unavailable Encounter Details Date Type Department Care Team (Late st Contact Info) Description 06/15/2024 Clinisync Result Encounter [facility] External Department Unsolicited Wilton Feliz MD [address] [place] [address] [address] [place], [place] [id number] Social History Tobacco Use Types Packs/Day Years [...] PM EDT documented as of this encounter Plan of Treatment Upcoming Encounters Date Type Department Care Team (Late st Contact Info) Description 03/06/2025 9:20 AM EDT Office Visit [facility] [address] [place] [address] Rosey Dubose MD [address] [place] [address] 03/06/2025 10:30 AM EDT Office Visit [facility] [address] [place] [address] Abdi Mckeon PA [address] [place] [address] documented as of this encounter Procedures Procedure Name Priority Date/Time Associated Diagnosis Comments MRI SPINE CERVICAL W/O CONTRAST 06/15/2024 5:00 PM EST documented in this encounter Results * MRI SPINE CERVICAL W/O CONTRAST (06/15/2024 5:00 PM EST) Anatomical Region Laterality Modality Other 06/15/2024 5:00 PM EST Narrative 06/17/2024 1:24 PM EST Exam Date/Time: 06/15/2024 17:26 EST Reason for Exam: M54.12 Report IMPRESSION: Degenerative changes cervical spine, similar to prior. HISTORY: Neck pain. TECHNIQUE: Routine cervical spine MR protocol without gadolinium. COMPARISON: MRI 05/28/2022. RESULT: Counting reference: Craniocervical junction. Alignment: Straightening of the cervical lordosis. Craniocervical junction: Craniocervical junction is unremarkable. Cord: The cervical spinal cord is within normal limits of signal intensity and morphology. Bone marrow signal/fracture: No evidence for acute or chronic fracture. No destructive osseous process. Cervical soft tissues: The paraspinal soft tissues are unremarkable. C2-C3: No significant canal or foraminal narrowing. C3-C4: Disc bulge. Endplate osteophytes. Possible small annular fissure. Facet/uncovertebral degenerative changes. Moderate left foraminal narrowing, mild canal narrowing, without significant right foraminal narrowing. C4-C5: Disc bulge. Endplate osteophytes. Facet/uncovertebral degenerative changes. Mild to moderate right foraminal narrowing, mild canal narrowing, without significant left foraminal narrowing. C5-C6: Disc bulge. Facet/vertebral degenerative changes. Mild right foraminal narrowing without significant canal or left foraminal narrowing. C6-C7: Disc bulge. No significant canal or foraminal narrowing. C7-T1: Disc bulge. No significant canal or foraminal narrowing. Upper thoracic spine: Visualized upper thoracic canal and foramina without significant narrowing. Overall, the degenerative changes are similar to the prior study from 05/28/2022. Report Ordering Provider: Wilton Feliz FINAL REPORT Dictated: 06/17/2024 1:21 pm Jon Gannon MD Signed (Electronic Signature): 06/17/2024 1:21 pm Signed by: Jon Gannon MD Transcribed by: MARGAUX Technologist: TYE Technical Comments None Procedure Note Radiology, Radiologist, MD - 06/17/2024 Exam Date/Time: 06/15/2024 17:26 EST Reason for Exam: M54.12 Report IMPRESSION: Degenerative changes cervical spine, similar to prior. HISTORY: Neck pain. TECHNIQUE: Routine cervical spine MR protocol without gadolinium. COMPARISON: MRI 05/28/2022. RESULT: Counting reference: Craniocervical junction. Alignment: Straightening of the cervical lordosis. Craniocervical junction: Craniocervical junction is unremarkable. Cord: The cervical spinal cord is within normal limits of signalintensity and morphology. Bone marrow signal/fracture: No evidence for acute or chronic fracture.No destructive osseous process. Cervical soft tissues: The paraspinal soft tissues are unremarkable. C2-C3: No significant canal or foraminal narrowing. C3-C4: Disc bulge. Endplate osteophytes. Possible small annular fissure. Facet/uncovertebral degenerative changes. Moderate left foraminalnarrowing, mild canal narrowing, without significant right foraminal narrowing. C4-C5: Disc bulge. Endplate osteophytes. Facet/uncovertebral degenerativechanges. Mild to moderate right foraminal narrowing, mild canal narrowing, withoutsignificant left foraminal narrowing. C5-C6: Disc bulge. Facet/vertebral degenerative changes. Mild rightforaminal narrowing without significant canal or left foraminal narrowing. C6-C7: Disc bulge. No significant canal or foraminal narrowing. C7-T1: Disc bulge. No significant canal or foraminal narrowing. Upper thoracic spine: Visualized upper thoracic canal and foraminawithout significant narrowing. Overall, the degenerative changes are similar to the prior study from05/28/2022. Report Ordering Provider: Wilton Feliz FINAL REPORT Dictated: 06/17/2024 1:21 pm Jon Gannon MD. Signed (Electronic Signature): 06/17/2024 1:21 pm Signed by: Jon Gannon MD Transcribed by: MARGAUX Technologist: TYE Technical Comments None Wilton Feliz MD [facility] Final Resul t documented in this encounter Visit Diagnoses Not on filedocumented in this encounter Care Teams Web Page Developer Relationship Specialty Start Date End Date Socrates Valdovinos MD [address] [place] [phone] PCP - General Family Medicine 10/29/23 Kristi Blake PA [address] [facility] [address] [facility] [place] [address] Physician Regional Loss Prevention Manager Neurology 09/08/24 documented as of this encounter
--- OUTSIDE RECORDS SUMMARY | 2025-03-01 10:55 | XMS_ITS | Encounter Summary ---
Author Organization [facility] Address [facility] [place] [address] Care Team Providers Care Manager Control Name Role Phone Socrates Valdovinos DO Primary Care Provider [phone] Wilton Feliz MD Unavailable [phone] Source Comments In the event this information is protected by the Federal Confidentiality of Alcohol and Drug AbusePatient Records regulations: The Federal rules restrict any use of the information to criminally investigate or prosecute any alcohol or drug abuse patient.[facility] Encounter Details Date Type Department Care Team (Late st Contact Info) Description 2024 [place] [address] Provider, [facility] Medicare Coverage of Physical Exams Social History Tobacco Use Types Packs/Day Years [...] 11/22/2021 PHQ-2 Answer Date Recorded PHQ-2 score 5 07/02/2022 Hunger Vital Sign Answer Date Recorded Within [...] place to sleep or slept in a alf (including now)? No 11/22/2021 Area Deprivation Index Answer Date Arsalan rded National Score (1-100), lower number is lower ri sk 74 07/12/2022 State Score (1-10), lower number is lower risk N ot on file 07/12/2022 Data from: https://www.neighborhoodatlas.medicine.[facility].edu/. Last address used for calculation [address] 07/12/2022 Sex and Gender Information Value Date Recorded [...] 03/08/2025 2:00 PM EDT Office Visit Neurosurgery [address] [place] [address] Shree Banks MD [address] [place] [address] follow up documented as of this encounter Visit Diagnoses Not on filedocumented in this encounter Care Teams Manager Control Relationship Specialty Start Date End Date Socrates Valdovinos DO [address] [facility] [address] PCP - General 02/04/10 Wilton Feliz MD [address] [facility] [address] [place] [address] Neurology 08/23/24 documented as of this encounter
--- OUTSIDE RECORDS SUMMARY | 2025-03-01 10:55 | XMS_ITS | Encounter Summary ---
Author Organization [facility] Address [facility] [place] [address] Care Team Providers Care Outreach Assistant Name Role Phone Socrates Valdovinos DO Primary Care Provider [phone] Wilton Feliz MD Unavailable [phone] Source Comments In the event this information is protected by the Federal Confidentiality of Alcohol and Drug AbusePatient Records regulations: The Federal rules restrict any use of the information to criminally investigate or prosecute any alcohol or drug abuse patient.[facility] Encounter Details Date Type Department Care Team (Late st Contact Info) Description 08/24/2024 Patient Msg Ambulatory Surgery [address] [place] [address] Provider, [facility] arrival time Social History Tobacco Use Types Packs/Day Years [...] place to sleep or slept in a long-term (including now)? No 11/22/2021 Area Deprivation Index Answer Date Arsalan rded National Score (1-100), lower number is lower ri sk 87 07/20/2024 State Score (1-10), lower number is lower risk 8 07/20/2024 Data from: https://www.neighborhoodatlas.medicine.[facility].edu/. Last address used for calculation [address] 07/20/2024 Sex and Gender Information Value [...] 03/08/2025 2:00 PM EDT Office Visit Neurosurgery [address] [place] [address] Shree Banks MD [address] [place] [address] follow up documented as of this encounter Visit Diagnoses Not on filedocumented in this encounter Care Teams Outreach Assistant Relationship Specialty Start Date End Date Socrates Valdovinos DO [address] [place] [address] PCP - General 02/04/10 Wilton Feliz MD [address] [facility] [address] [place] [address] Neurology 08/23/24 documented as of this encounter
--- OUTSIDE RECORDS SUMMARY | 2025-03-01 10:55 | XMS_ITS | Encounter Summary ---
Author Organization [facility] Address [address] [place] [address] Phone Care Team Providers Care Straddle Truck Operator Name Role Phone Socrates Valdovinos DO Primary Care Provider [phone] Encounter Details Date Type Department Care Team (Late st Contact Info) Description 02/02/2025 Scanned Document [facility] [address] [place] [address] Scanning, Generic Provider Social History Tobacco Use Types Packs/Day Years Used Date Smoking Tobacco: Never Smokeless Tobacco: Never Alcohol Use Standard Drinks/Week Comments Yes 21 (1 standard drink = 0.6 oz pu re alcohol) daily Sex and Gender Information Value Date Recorded Sex Assigned at Not on file Legal Sex Male 1:53 PM EST Gender Identity Not on file Sexual Orientation Not on file documented as of this encounter Plan of Treatment Upcoming Encounters Date Type Department Care Team (Late st Contact Info) Description 04/24/2025 11:30 AM EDT Office Visit [place] [id number] [address] Lisa Donnelly MD 703 [facility] 2, [address] [address] documented as of this encounter Visit Diagnoses Not on filedocumented in this encounter Additional Health Concerns Assessment Noted Time A fall risk assessment has been complete d for the patient 01/26/2025 3:59 PM EDT documented as of this encounter Care Teams Straddle Truck Operator Relationship Specialty Start Date End Date Socrates Valdovinos DO PCP - General 05/09/20 documented as of this encounter
--- OUTSIDE RECORDS SUMMARY | 2025-03-01 10:55 | XMS_ITS | Encounter Summary ---
Author Organization [facility] Address [address] [place] [address] Care Team Providers Care Analog Ic Design Architect Name Role Phone Socrates Valdovinos DO Primary Care Provider [phone] Wilton Feliz MD Unavailable [phone] Source Comments In the event this information is protected by the Federal Confidentiality of Alcohol and Drug AbusePatient Records regulations: The Federal rules restrict any use of the information to criminally investigate or prosecute any alcohol or drug abuse patient.[facility] Encounter Details Date Type Department Care Team (Late st Contact Info) Description 01/30/2021 Patient Msg Rehab Medicine [address] [place] [address] Provider, Ccf Order for MRI Social History Tobacco Use Types Packs/Day Years Used Date Smoking Tobacco: Never Smokeless Tobacco: Never Alcohol Use Standard Drinks/Week Comments Yes 2 (1 standard drink = 0.6 oz pur e alcohol) 1-2 drinks/d Area Deprivation Index Answer Date Arsalan rded National Score (1-100), lower number is lower ri sk Not on file 01/29/2021 State Score (1-10), lower number is lower risk N ot on file 01/29/2021 Data from: https://www.neighborhoodatlas.medicine.[facility]/. Last address used for calculation Not on file 01/29/2021 Sex and Gender Information Value Date Recorded Sex Assigned at Male 01/28/2021 2:16 PM EDT Legal Sex Male 9:02 AM EST Gender Identity Male 01/28/2021 2:16 PM EDT Sexual Orientation Straight 01/28/2021 2: 16 PM EDT COVID-19 Exposure Response Date Recorded In the last month, have you been in contact with someone who was confirmed or suspected to have Coronavirus / COVID-19? No / Unsure 01/29/2021 8:40 AM EDT documented as of this encounter Functional Status * Are you deaf or do you have serious difficulty hearing? Answer Date of Assessment Author No 01/17/2015 12:23 PM EDT Jessie Maldonado MA * Are you blind or do you have serious difficulty seeing, even when wearing glasses? Answer Date of Assessment Author No 01/17/2015 12:23 PM EDT Jessie Maldonado MA * Do you have serious difficulty walking or climbing stairs? Answer Date of Assessment Author No 01/17/2015 12:23 PM EDT Jessie Maldonado MA * Do you have difficulty dressing or bathing? Answer Date of Assessment Author Yes 01/17/2015 12:23 PM EDT Jessie Maldonado MA * Because of a physical, mental, or emotional condition, do you have difficulty doing errands alone such as visiting a doctor's office or shopping? Answer Date of Assessment Author No 01/17/2015 12:23 PM EDT Jessie Maldonado MA documented as of this encounter Mental Status * Because of a physical, mental, or emotional condition, do you have serious difficulty concentrating, remembering, or making decisions? Answer Entry Date Author Yes 01/17/2015 12:23 PM EDT Jessie Maldonado MA documented in this encounter Plan of Treatment Upcoming Encounters Date Type Department Care Team (Late st Contact Info) Description 03/08/2025 2:00 PM EDT Office Visit Neurosurgery [address] [place] [address] Shree Banks MD [address] [place] [address] follow up documented as of this encounter Visit Diagnoses Not on filedocumented in this encounter Additional Health Concerns Infection Onset Date Last Indicated Resolved Time COVID-19 Rule-Out 09/12/2021 09/12/2021 09/12/2021 5:42 AM EDT COVID-19 Rule-Out 11/22/2021 11/22/2021 11/22/2021 2:40 AM EDT documented as of this encounter Care Teams Analog Ic Design Architect Relationship Specialty Start Date End Date Socrates Valdovinos DO [address] [place] [address] PCP - General 02/04/10 Wilton Feliz MD [address] [facility] [address] [place] [address] Neurology 08/23/24 documented as of this encounter
--- OUTSIDE RECORDS SUMMARY | 2025-03-01 10:55 | XMS_ITS | Encounter Summary ---
Author Organization [facility] Address [address] [place] [address] Care Team Providers Care Wastewater Operator Name Role Phone Socrates Valdovinos DO Primary Care Provider [phone] Wilton Feliz MD Unavailable [phone] Source Comments In the event this information is protected by the Federal Confidentiality of Alcohol and Drug AbusePatient Records regulations: The Federal rules restrict any use of the information to criminally investigate or prosecute any alcohol or drug abuse patient.[facility] Encounter Details Date Type Department Care Team (Late st Contact Info) Description 05/09/2022 Get Medical Advice Neurosurgery [address] [place] [address] Shree Banks MD [address] [place] [address] Lyrica 200mg 3 X Daily Refill Change Request Social History Tobacco Use Types Packs/Day [...] PHQ-2 Answer Date Recorded PHQ-2 score 3 04/09/2022 Hunger Vital Sign Answer Date Recorded Within [...] place to sleep or slept in a group home (including now)? No 11/22/2021 Area Deprivation Index Answer Date Arsalan rded National Score (1-100), lower number is lower ri sk 74 12/04/2021 State Score (1-10), lower number is lower risk N ot on file 12/04/2021 Data from: https://www.neighborhoodatlas.medicine.[facility].edu/. Last address used for calculation [address] 12/04/2021 Sex and Gender Information Value Date Recorded [...] suspected to have Coronavirus/COVID-19? No / Unsure 04/23/2022 2:30 PM EDT documented as of this encounter [...] 03/08/2025 2:00 PM EDT Office Visit Neurosurgery [address] [place] [address] Shree Banks MD [address] [place], [place] [address] follow up documented as of this encounter Visit Diagnoses Not on filedocumented in this encounter Care Teams Wastewater Operator Relationship Specialty Start Date End Date Socrates Valdovinos DO [address] [facility] [place] [address] PCP - General 02/04/10 Wilton Feliz MD [address] [facility] [address] [place] [address] Neurology 08/23/24 documented as of this encounter
--- OUTSIDE RECORDS SUMMARY | 2025-03-01 10:55 | XMS_ITS | Encounter Summary ---
Author Organization [facility] Address [address] [place] [address] Care Team Providers Care Supervisor Reinforced Steel Placing Name Role Phone Socrates Valdovinos DO Primary Care Provider [phone] Wilton Feliz MD Unavailable [phone] Source Comments In the event this information is protected by the Federal Confidentiality of Alcohol and Drug AbusePatient Records regulations: The Federal rules restrict any use of the information to criminally investigate or prosecute any alcohol or drug abuse patient.[facility] Encounter Details Date Type Department Care Team (Late st Contact Info) Description 12/05/2024 Get Medical Advice Neurosurgery [address] [place] [address] Shree Banks MD [address] [place] [address] Location of Richard Urena`s next spine injection Social History Tobacco Use Types Packs/Day Years [...] place to sleep or slept in a mcc (including now)? No 11/22/2021 Area Deprivation Index Answer Date Arsalan rded National Score (1-100), lower number is lower ri sk 87 07/20/2024 State Score (1-10), lower number is lower risk 8 07/20/2024 Data from: https://www.neighborhoodatlas.medicine.[facility].edu/. Last address used for calculation [address] 07/20/2024 Sex and Gender Information [...] 03/08/2025 2:00 PM EDT Office Visit Neurosurgery [address] [place] [address] Shree Banks MD [address] [place] [address] follow up documented as of this encounter Visit Diagnoses Not on filedocumented in this encounter Care Teams Supervisor Reinforced Steel Placing Relationship Specialty Start Date End Date Socrates Valdovinos DO [address] [place] [address] PCP - General 02/04/10 Wilton Feliz MD [address] [facility] [address] [place] [address] Neurology 08/23/24 documented as of this encounter
--- OUTSIDE RECORDS SUMMARY | 2025-03-01 10:55 | XMS_ITS | Encounter Summary ---
Author Organization [facility] Address [address] [place] [address] Phone Care Team Providers Care Digital Pre Press Operator Name Role Phone Socrates Valdovinos DO Primary Care Provider [phone] Encounter Details Date Type Department Care Team (Late st Contact Info) Description 10/19/2024 Scanned Document [facility] [address] [place] [id number] Scanning, Generic Provider Social History Tobacco Use [...] Description 04/24/2025 11:30 AM EDT Office Visit [place] [address] [address] Lisa Donnelly MD 703 [facility] 2, [address] [address] documented as of this encounter Visit Diagnoses Not on filedocumented in this encounter Additional Health Concerns Assessment Noted Time A fall risk assessment has been complete d for the patient 07/22/2024 10:06 AM EST documented as of this encounter Care Teams Digital Pre Press Operator Relationship Specialty Start Date End Date Socrates Valdovinos DO PCP - General 05/09/20 documented as of this encounter
--- OUTSIDE RECORDS SUMMARY | 2025-03-01 10:55 | XMS_ITS | Encounter Summary ---
Author Organization [facility] Address [address] [place] [address] Care Team Providers Care Management Developer Name Role Phone Socrates Valdovinos DO Primary Care Provider [phone] Wilton Feliz MD Unavailable [phone] Source Comments In the event this information is protected by the Federal Confidentiality of Alcohol and Drug AbusePatient Records regulations: The Federal rules restrict any use of the information to criminally investigate or prosecute any alcohol or drug abuse patient.[facility] Encounter Details Date Type Department Care Team (Late st Contact Info) Description 03/31/2022 Get Medical Advice Neurosurgery [address] [place] [address] Shree Banks MD [address] [place] [address] Follow up Social History Tobacco Use Types Packs/Day Years [...] PHQ-2 Answer Date Recorded PHQ-2 score 3 02/07/2022 Hunger Vital Sign Answer Date Recorded Within [...] place to sleep or slept in a long term (including now)? No 11/22/2021 Area Deprivation Index Answer Date Arsalan rded National Score (1-100), lower number is lower ri sk 74 12/04/2021 State Score (1-10), lower number is lower risk N ot on file 12/04/2021 Data from: https://www.neighborhoodatlas.medicine.[facility].edu/. Last address used for calculation [address] 12/04/2021 Sex and Gender Information Value [...] suspected to have Coronavirus/COVID-19? No / Unsure 04/02/2022 2:57 PM EDT documented as of this encounter [...] 03/08/2025 2:00 PM EDT Office Visit Neurosurgery [address] [place] [address] Shree Banks MD [address] [place] [address] follow up documented as of this encounter Visit Diagnoses Not on filedocumented in this encounter Care Teams Management Developer Relationship Specialty Start Date End Date Socrates Valdovinos DO [address] [place] [address] PCP - General 02/04/10 Wilton Feliz MD [address] [facility] [address] [place] [address] Neurology 08/23/24 documented as of this encounter
--- OUTSIDE RECORDS SUMMARY | 2025-03-01 10:55 | XMS_ITS | Encounter Summary ---
Author Organization [facility] Address [facility] [place] [address] Care Team Providers Care Batting Machine Operator Name Role Phone Socrates Valdovinos DO Primary Care Provider [phone] Wilton Fleiz MD Unavailable [phone] Source Comments In the event this information is protected by the Federal Confidentiality of Alcohol and Drug AbusePatient Records regulations: The Federal rules restrict any use of the information to criminally investigate or prosecute any alcohol or drug abuse patient.[facility] Encounter Details Date Type Department Care Team (Late st Contact Info) Description 09/01/2024 Patient [place] [address] Provider, Ccf [facility] Copay and Deductible Social History Tobacco Use Types Packs/Day Years [...] place to sleep or slept in a penitentiary (including now)? No 11/22/2021 Area Deprivation Index Answer Date Arsalan rded National Score (1-100), lower number is lower ri sk 87 07/20/2024 State Score (1-10), lower number is lower risk 8 07/20/2024 Data from: https://www.neighborhoodatlas.medicine.[facility].edu/. Last address used for calculation [...] 03/08/2025 2:00 PM EDT Office Visit Neurosurgery [address] [place] [address] Shree Banks MD [address] [place] [address] follow up documented as of this encounter Visit Diagnoses Not on filedocumented in this encounter Care Teams Batting Machine Operator Relationship Specialty Start Date End Date Socrates Valdovinos DO [address] [facility] [address] PCP - General 02/04/10 Wilton Feliz MD [address] [facility] [address] [place] [address] Neurology 08/23/24 documented as of this encounter
--- OUTSIDE RECORDS SUMMARY | 2025-03-01 10:55 | XMS_ITS | Encounter Summary ---
Author Organization [facility] Address [address] [place] [address] Phone Care Team Providers Care Side Sawyer Name Role Phone Socrates Valdovinos DO Primary Care Provider [phone] Encounter Details Date Type Department Care Team (Late st Contact Info) Description 08/02/2020 Orders Only [facility] [address] [place] [address] Conversion, Onbase Social History Tobacco Use Types [...] Description 04/24/2025 11:30 AM EDT Office Visit [place] [address] [phone] Lisa Donnelly MD 703 [facility] 2, [address] [address] Scheduled Orders Name Type Priority Associated Diagnoses Orde r Schedule OUTSIDE LAB SCAN Lab Ordered: 08/02/2020 documented as of this encounter Visit Diagnoses Not on filedocumented in this encounter Care Teams Side Sawyer Relationship Specialty Start Date End Date Socrates Valdovinos DO PCP - General 05/09/20 documented as of this encounter
--- OUTSIDE RECORDS SUMMARY | 2025-03-01 10:55 | XMS_ITS | Encounter Summary ---
Author Organization [facility] Address [address] [place] [address] Phone Care Team Providers Care Licensed Physical Therapist Assistant Name Role Phone Socrates Valdovinos DO Primary Care Provider [phone] Encounter Details Date Type Department Care Team (Late st Contact Info) Description 02/28/2020 Orders Only [facility] [address] [place] [address] Conversion, Onbase Social History Tobacco Use Types [...] Description 04/24/2025 11:30 AM EDT Office Visit [place] [phone] [phone] Lisa Donnelly MD 703 [facility] 2, [address] [address] Scheduled Orders Name Type Priority Associated Diagnoses Orde r Schedule OUTSIDE LAB SCAN Lab Ordered: 02/28/2020 documented as of this encounter Visit Diagnoses Not on filedocumented in this encounter Care Teams Licensed Physical Therapist Assistant Relationship Specialty Start Date End Date Socrates Valdovinos DO PCP - General 05/09/20 documented as of this encounter
--- OUTSIDE RECORDS SUMMARY | 2025-03-01 10:55 | XMS_ITS | Encounter Summary ---
Author Organization [facility] Address [address] [place] [address] Care Team Providers Care Director Of Hospitality Name Role Phone Socrates Valdovinos DO Primary Care Provider [phone] Wilton Feliz MD Unavailable [phone] Source Comments In the event this information is protected by the Federal Confidentiality of Alcohol and Drug AbusePatient Records regulations: The Federal rules restrict any use of the information to criminally investigate or prosecute any alcohol or drug abuse patient.[facility] Encounter Details Date Type Department Care Team (Late st Contact Info) Description 05/08/2021 Patient Msg Neurosurgery [address] [place] [address] Shree Banks MD [address] [place] [address] RE: Appointment Request Social History Tobacco Use Types [...] N ot on file 01/29/2021 Data from: https://www.neighborhoodatlas.medicine.[facility]/. Last address used for calculation Not on [...] have Coronavirus / COVID-19? No / Unsure 04/16/2021 1:39 PM EDT documented as of this encounter [...] 03/08/2025 2:00 PM EDT Office Visit Neurosurgery [address] [place] [address] Shree Banks MD [address] [place], [place] [address] follow up documented as of this encounter Visit Diagnoses Not on filedocumented in this encounter Additional Health Concerns Infection Onset Date Last Indicated Resolved Time COVID-19 Rule-Out 09/12/2021 09/12/2021 09/12/2021 5:42 AM EDT COVID-19 Rule-Out 11/22/2021 11/22/2021 11/22/2021 2:40 AM EDT documented as of this encounter Care Teams Director Of Hospitality Relationship Specialty Start Date End Date Socrates Valdovinos DO [address] [facility] [place] [address] PCP - General 02/04/10 Wilton Feliz MD [address] [facility] [address] [place] [address] Neurology 08/23/24 documented as of this encounter
--- OUTSIDE RECORDS SUMMARY | 2025-03-01 10:55 | XMS_ITS | Encounter Summary ---
Author Organization [facility] Address [address] [place] [address] Phone Care Team Providers Care Card Processing Clerk Name Role Phone Socrates Valdovinos DO Primary Care Provider [phone] Encounter Details Date Type Department Care Team (Late st Contact Info) Description 11/20/2021 Orders Only [facility] [address] [place] [address] Conversion, Onbase Social History Tobacco Use Types [...] Description 04/24/2025 11:30 AM EDT Office Visit [facility] [address] [phone] Lisa Donnelly MD 703 [facility] 2, [address] [address] Scheduled Orders Name Type Priority Associated Diagnoses Orde r Schedule OUTSIDE LAB SCAN Lab Ordered: 11/20/2021 documented as of this encounter Visit Diagnoses Not on filedocumented in this encounter Care Teams Card Processing Clerk Relationship Specialty Start Date End Date Socrates Valdovinos DO PCP - General 05/09/20 documented as of this encounter
--- OUTSIDE RECORDS SUMMARY | 2025-03-01 10:55 | XMS_ITS | Encounter Summary ---
Author Organization [facility] Address [address] [place] [address] Care Team Providers Care Commissioning Engineer Name Role Phone Socrates Valdovinos DO Primary Care Provider Wilton Feliz MD Unavailable [phone] Source Comments In the event this information is protected by the Federal Confidentiality of Alcohol and Drug AbusePatient Records regulations: The Federal rules restrict any use of the information to criminally investigate or prosecute any alcohol or drug abuse patient.[facility] Encounter Details Date Type Department Care Team (Late st Contact Info) Description 12/01/2024 Patient Msg Spine [place] [address] [place] [address] Provider, [facility]cf Scheduling Spine Procedure Appointment Social History Tobacco Use Types Packs/Day Years [...] is lower risk 8 07/20/2024 Data from: https://www.neighborhoodatlas.medicine.[facility].edu/. Last address used for calculation [address] [...] 03/08/2025 2:00 PM EDT Office Visit Neurosurgery [address] [place] [address] Shree Banks MD [address] [place], [place] [phone] follow up documented as of this encounter Visit Diagnoses Not on filedocumented in this encounter Care Teams Commissioning Engineer Relationship Specialty Start Date End Date Socrates Valdovinos DO [address] [facility] [place] [address] PCP - General 02/04/10 Wilton Feliz MD [address] [facility] [address] [place] [address] Neurology 08/23/24 documented as of this encounter
--- OUTSIDE RECORDS SUMMARY | 2025-03-01 10:55 | XMS_ITS | Encounter Summary ---
Author Organization [facility] Address [address] [place] [address] Care Team Providers Care Typing Section Chief Name Role Phone Socrates Valdovinos DO Primary Care Provider [phone] Wilton Feliz MD Unavailable [phone] Source Comments In the event this information is protected by the Federal Confidentiality of Alcohol and Drug AbusePatient Records regulations: The Federal rules restrict any use of the information to criminally investigate or prosecute any alcohol or drug abuse patient.[facility] Encounter Details Date Type Department Care Team (Late st Contact Info) Description 04/23/2022 Get Medical Advice Neurosurgery [address] [place] [address] Shree Banks MD [address] [place] [address] Spinal injection w/ Social History Tobacco Use Types Packs/Day Years [...] place to sleep or slept in a longterm (including now)? No 11/22/2021 Area Deprivation Index Answer Date Arsalan rded National Score (1-100), lower number is lower ri sk 74 12/04/2021 State Score (1-10), lower number is lower risk N ot on file 12/04/2021 Data from: https://www.neighborhoodatlas.medicine.[facility].edu/. Last address used for calculation [address] 12/04/2021 Sex and Gender Information [...] Assessment Author No 01/06/2022 6:27 PM EDT aRdha Escamilla RN * Do you have difficulty [...] 03/08/2025 2:00 PM EDT Office Visit Neurosurgery [address] [place] [address] Shree Banks MD [address] [place] [address] follow up documented as of this encounter Visit Diagnoses Not on filedocumented in this encounter Care Teams Typing Section Chief Relationship Specialty Start Date End Date Socrates Valdovinos DO [address] [place] [address] PCP - General 02/04/10 Wilton Feliz MD [address] [facility] [address] [place] [address] Neurology 08/23/24 documented as of this encounter
--- OUTSIDE RECORDS SUMMARY | 2025-03-01 10:55 | XMS_ITS | Encounter Summary ---
Author Organization [facility] Address [address] [place] [address] Care Team Providers Care Power Builder Developer Name Role Phone Socrates Valdovinos DO Primary Care Provider [phone] Wilton Feliz MD Unavailable [phone] Source Comments In the event this information is protected by the Federal Confidentiality of Alcohol and Drug AbusePatient Records regulations: The Federal rules restrict any use of the information to criminally investigate or prosecute any alcohol or drug abuse patient.[facility] Encounter Details Date Type Department Care Team (Late st Contact Info) Description 02/20/2022 Patient Msg Neurosurgery [address] [place], [place] [phone] Shree Banks MD [address] [place] [address] Appointment Request (HM) Social History Tobacco Use Types Packs/Day Years [...] N ot on file 12/04/2021 Data from: https://www.neighborhoodatlas.medicine.[facility].edu/. [...] suspected to have Coronavirus/COVID-19? No / Unsure 02/13/2022 9:08 AM EDT documented as of this encounter [...] 03/08/2025 2:00 PM EDT Office Visit Neurosurgery [address] [place] [address] Srhee Banks MD [address] [place] [address] follow up documented as of this encounter Visit Diagnoses Not on filedocumented in this encounter Care Teams Power Builder Developer Relationship Specialty Start Date End Date Socrates Valdovinos DO [address] [facility] [place] [address] PCP - General 02/04/10 Wilton Feliz MD 5433 [facility] [address] [place] [address] Neurology 08/23/24 documented as of this encounter
--- OUTSIDE RECORDS SUMMARY | 2025-03-01 10:55 | XMS_ITS | Encounter Summary ---
Author Organization [facility] Address [facility] [place] [address] Care Team Providers Care Parking Assistant Name Role Phone Socrates Valdovinos DO Primary Care Provider [phone] Wilton Feliz MD Unavailable [phone] Source Comments In the event this information is protected by the Federal Confidentiality of Alcohol and Drug AbusePatient Records regulations: The Federal rules restrict any use of the information to criminally investigate or prosecute any alcohol or drug abuse patient.[facility] Encounter Details Date Type Department Care Team (Late st Contact Info) Description 08/13/2021 Patient Msg Pre Anesthesia [address] [place], [place] [phone] Yamilet Spivey APRN.MINE MANAGER [address] [place] [address] Plavix Social History Tobacco Use Types Packs/Day Years Used Date Smoking Tobacco: Never Smokeless Tobacco: Never Alcohol Use Standard Drinks/Week Comments Yes 0 (1 standard drink = 0.6 oz pur e alcohol) 2 glasses of wine per day. Area Deprivation Index Answer Date Arsalan rded National Score (1-100), lower number is lower ri sk Not on file 01/29/2021 State Score (1-10), lower number is lower risk N ot on file 01/29/2021 Data from: https://www.neighborhoodatlas.medicine.[facility].edu/. Last address used for calculation Not on [...] have Coronavirus / COVID-19? No / Unsure 08/16/2021 7:26 AM EST documented as of this encounter Functional Status [...] of Assessment Author Yes 01/17/2015 12:23 PM STEVENT Jessie Maldonado MA * Because of a physical, mental, or emotional condition, do you have difficulty doing errands alone such as visiting a doctor's office or shopping? Answer Date of Assessment Author No 01/17/2015 12:23 PM STEVENT Jessie Maldonado MA documented as of this [...] 03/08/2025 2:00 PM EDT Office Visit Neurosurgery [address] [place] [address] Shree Banks MD [address] [place], [place] [phone] follow up documented as of this encounter Visit Diagnoses Not on filedocumented in this encounter Additional Health Concerns Infection Onset Date Last Indicated Resolved Time COVID-19 Rule-Out 09/12/2021 09/12/2021 09/12/2021 5:42 AM EDT COVID-19 Rule-Out 11/22/2021 11/22/2021 11/22/2021 2:40 AM EDT documented as of this encounter Care Teams Parking Assistant Relationship Specialty Start Date End Date Socrates Valdovinos DO [address] [place] [address] PCP - General 02/04/10 Wilton Feliz MD [address] [facility] [address] [place] [address] Neurology 08/23/24 documented as of this encounter
--- OUTSIDE RECORDS SUMMARY | 2025-03-01 10:55 | XMS_ITS | Encounter Summary ---
Author Organization [facility] Address [facility] [place] [address] Care Team Providers Care Election Watcher Name Role Phone Sorcates Valdovinos DO Primary Care Provider [phone] Wilton Feliz MD Unavailable [phone] Source Comments In the event this information is protected by the Federal Confidentiality of Alcohol and Drug AbusePatient Records regulations: The Federal rules restrict any use of the information to criminally investigate or prosecute any alcohol or drug abuse patient.[facility] Encounter Details Date Type Department Care Team (Late st Contact Info) Description 04/01/2021 Patient Msg Dermatology [address] [place] [address] Provider, Daniel Neurology EMG appointment is cancelled today Social History Tobacco Use Types Packs/Day Years [...] N ot on file 01/29/2021 Data from: [email or web address] Last address used for calculation [...] 03/08/2025 2:00 PM EDT Office Visit Neurosurgery [address] [place] [address] Shree Banks MD [address] [place] [address] follow up documented as of this encounter Visit Diagnoses Not on filedocumented in this encounter Additional Health Concerns Infection Onset Date Last Indicated Resolved Time COVID-19 Rule-Out 09/12/2021 09/12/2021 09/12/2021 5:42 AM EDT COVID-19 Rule-Out 11/22/2021 11/22/2021 11/22/2021 2:40 AM EDT documented as of this encounter Care Teams Election Watcher Relationship Specialty Start Date End Date Socrates Valdovinos DO [address] [place] [address] PCP - General 02/04/10 Wilton Feliz MD [address] [facility] [address] [place], [place] [id number] Neurology 08/23/24 documented as of this encounter
--- OUTSIDE RECORDS SUMMARY | 2025-03-01 10:55 | XMS_ITS | Encounter Summary ---
Author Organization [facility] Address [address] [place] [address] Care Team Providers Care Blasting Worker Name Role Phone Socrates Valdovinos MD Primary Care Provider [phone] Kristi Blake Unavailable Encounter Details Date Type Department Care Team (Late st Contact Info) Description 08/31/2024 Orders Only [facility] [address] [place] [address] Rosey Dubose MD [address] [place] [address] Social History Tobacco Use Types Packs/Day Years [...] AM EDT Office Visit [facility] [address] [place] [address] Rosey Dubose MD [address] [place] [address] 03/06/2025 10:30 AM EDT Office Visit [facility] [address] [place] [address] Abdi Mckeon PA [address] [place] [address] documented as of this encounter Procedures Procedure Name Priority Date/Time Associated Diagnosis Comments HEMOGLOBIN Routine 08/31/2024 4:05 PM EST TESTOSTERONE, FREE Routine 08/31/2024 4:05 PM EST PSA, TOTAL Routine 08/31/2024 4:05 PM EST documented in this encounter Results * Hemoglobin (08/31/2024 4:05 PM EST) Blood Venous blood specimen / Unknown Rosey Dubose MD LAB BLOOD ORDERABLES Final Re sult * TESTOSTERONE, FREE (08/31/2024 4:05 PM EST) Rosey Dubose MD LAB BLOOD ORDERABLES Final Re sult * PSA (08/31/2024 4:05 PM EST) Blood Venous blood specimen / Unknown Rosey Dubose MD LAB BLOOD ORDERABLES Final Re sult documented in this encounter Visit Diagnoses Not on filedocumented in this encounter Care Teams Blasting Worker Relationship Specialty Start Date End Date Socrates Valdovinos MD [address] [place] [address] PCP - General Family Medicine 10/29/23 Kristi Blake PA [address] [facility] [address] [place] [address] Physician Clean In Places Operator Neurology 09/08/24 documented as of this encounter
--- OUTSIDE RECORDS SUMMARY | 2025-03-01 10:55 | XMS_ITS | Clinical Summary ---
Author Organization [facility] Address [address] [place] [address] Phone Care Team Providers Care Logging Specialist Name Role Phone Socrates Valdovinos DO Primary Care Provider Allergies Active Allergy Reactions Criticality Noted Date Comments Latex Hives Medium 03/07/2023 Penicillins Anaphylaxis,Swelling High 03/07/2023 Medications fremanezumab (Ajovy) 225 mg/1.5 mL prefilled syringe 1.5 mL (225 mg) every 28 (twenty-eight) days. Active JOHANNE BIOTIN ORAL Take 10,000 mcg by mouth once daily. Active onabotulinumtoxinA (BOTOX INJ) Every 90 days Acti ve clopidogrel (Plavix) 75 mg tablet Take 1 tablet (75 mg) by mouth once daily. Active DULoxetine (Cymbalta) [address] capsule Take 2 capsules (60 mg) by mouth 2 times a day. Do not crush or chew. Active dicyclomine (Bentyl) 20 mg tablet Take 1 tablet (20 mg) by mouth 4 times a day as needed. Active doxazosin (Cardura) 4 mg tablet Take 1 tablet (4 mg) by mouth once daily. Active ferrous sulfate 325 (65 Fe) MG EC tablet Take 1 tablet by mouth once daily. Do not crush, chew, or split. Active finasteride (Proscar) 5 mg tablet Take 1 tablet (5 mg) by mouth once daily. Do not crush, chew, or split. Active omega-3 fatty acids (FISH OIL CONCENTRATE ORAL) Take 1 tablet by mouth once daily. Active fluticasone (Flonase) 50 mcg/actuation nasal spray Administer 2 sprays into each nostril once daily. Shake gently. Before first use, prime pump. After use, clean tip and replace cap. Active furosemide (Lasix) 40 mg tablet Take 1 tablet (40 mg) by mouth once daily. Active potassium chloride CR 20 mEq ER tablet Take 1 tablet (20 mEq) by mouth once daily. Do not crush or chew. Active magnesium oxide (Mag-Ox) 400 mg tablet Take 1 tablet (400 mg) by mouth once daily. Active metoprolol succinate XL (Toprol-XL) 50 mg 24 hr tablet Take 1 tablet (50 mg) by mouth once daily. Do not crush or chew. Active multivitamin capsule Take 1 capsule by mouth once daily. Active nortriptyline (Pamelor) 50 mg capsule Take 1 capsule (50 mg) by mouth once daily. Active omeprazole (PriLOSEC) [address] capsule Take 1 capsule (40 mg) by mouth once daily. Do not crush or chew. Active pregabalin (Lyrica) 200 mg capsule Take 1 capsule (200 mg) by mouth 3 times a day. Active rizatriptan (Maxalt) 10 mg tablet Take 1 tablet (10 mg) by mouth 1 time. At the onset of headache. May repeat ievery 2 hours as needed. Do not exceed 30 mg in 24 hours. Active rOPINIRole (Requip) 0.5 mg tablet Take 1 tablet (0.5 mg) by mouth once daily. Active sildenafil (Viagra) 50 mg tablet Take 1 tablet (50 mg) by mouth if needed for erectile dysfunction. 1 hour before needed Active testosterone cypionate (Depo-Testosterone) 200 mg/mL injection Inject 1.5 mL (300 mg) into the muscle every 14 (fourteen) days. Active valACYclovir (Valtrex) 500 mg tablet Take 1 tablet (500 mg) by mouth if needed. Active albuterol (Ventolin HFA) 90 mcg/actuation inhaler Use as directed Active b complex 0.4 mg tablet Take 1 tablet by mouth once daily. Active cholecalciferol, vitamin D3, (D3-50 CHOLECALCIFEROL ORAL) Take 1 tablet by mouth once daily. Active pancrelipase, Pan-Yqhn-Oiyt, (Creon) 36,000-114,000- 180,000 unit capsule,delayed release(DR/EC) capsule Take 1 capsule by mouth once daily. Active nitroglycerin (Nitrostat) 0.4 mg SL tabletIndications:A ngina pectoris Place 1 tablet (0.4 mg) under the tongue every 5 minutes if needed for chest pain. Take as directed 25 tablet 1 06/14/20 24 025 Active HYDROcodone-acetami nophen (Hoven) 7.5-325 mg tablet Take 1 tablet by mouth 3 times a day. Active methocarbamol (Robaxin) 500 mg tablet Take 2 tablets (1,000 mg) by mouth 3 times a day. 05/18/20 24 Active telmisartan (MIcarDIS) 80 mg tablet Take 1 tablet (80 mg) by mouth once daily. Active doxepin (SINEquan) 10 mg capsule Take 1 capsule (10 mg) by mouth once daily at bedtime. Active semaglutide 2 mg/dose (8 mg/3 mL) pen injector Inject 2 mg under the skin 1 (one) time per week. Active Saccharomyces boulardii 10 billion cell capsule Take 250 mg by mouth once daily. Active isosorbide mononitrate ER (Imdur) 30 mg 24 hr tabletIndications:A ngina pectoris,Essential hypertension Take 1 tablet (30 mg) by mouth once daily. 90 tablet 3 10/22/19 25 026 Active atorvastatin (Lipitor) 80 mg tabletIndications:M ixed hyperlipidemia TAKE 1 TABLET DAILY AT BEDTIME 90 tablet 3 11/01/19 25 Active Active Problems Problem Noted Date Diagnosed Date BMI 39.0-39.9,adult 07/22/2024 Essential hypertension 03/07/2023 Hyperlipidemia 03/07/2023 Morbid obesity (Multi) 03/07/2023 Shortness of breath on exertion 03/07/2023 Stroke (Multi) 03/07/2023 Angina pectoris 03/07/2023 Never smoked any substance 03/07/2023 Encounters Date Type Department Care Team Description 02/02/2025 Scanned Document [facility] [address] [place] [phone] Scanning, Generic Provider 01/31/2025 Scanned Document [facility] [address] [place] [address] Scanning, Generic Provider 01/31/2025 Orders Only [facility] [address] [place] [address] Lisa Donnelly MD 01/27/2025 Telephone [facility] [address] [place] [address] Lisa Donnelly MD 01/26/2025 3:50 PM EDT Office Visit [facility] [address] [place] [address] Lisa Donnelly MD Angina pectoris (Primary Dx); Essential hypertension; Shortness of breath on exertion; Mixed hyperlipidemia; Morbid obesity (Multi); BMI 39.0-39.9,adult; Cerebrovascular accident (CVA), unspecified mechanism (Multi); Never smoked any substance 01/26/2025 Travel from Last 3 Months Immunizations Immunization Administration Dates Next Due Flu vaccine (IIV4), preserva tive free *Check age/dose* 04/11/2022,03/25/2019,04/21/2017,01/27 Flu vaccine, quadrivalent, n o egg protein, age 6 month or greater (FLUCELVAX) 04/25/2021 Flu vaccine, quadrivalent, recombinant, preservative free, adult (FLUBLOK) 04/12/2020 Flu vaccine, trivalent, pres ervative free, HIGH-DOSE, age 65y+ (Fluzone) 02/28/2020 Flu vaccine, trivalent, pres ervative free, no egg protein, age 18y+ (Flublok) 04/11/2024 Influenza, Unspecified 01/27/2018,2015,12/07/2014,05/01,04/07/2013,09/12/2009 Influenza, seasonal, injectable 04/02/20,04/26/2018,02/28/2016,04/21,06/29/2011,03/28/2011 Pfizer COVID-19 vaccine, biv alent, age 12 years and older (30 mcg/0.3 mL) 04/11/2022 Pfizer Finch Cap SARS-CoV-2 01/02/2022 Pneumococcal polysaccharide vaccine, 23-valent, age 2 years and older (PNEUMOVAX 23) 12/08/2014 Tetanus toxoid, adsorbed 03/28/2011 Zoster vaccine, recombinant, adult (SHINGRIX) 06/12/2020,04/12/2020 Family History Medical History Relation Name Comments No Known Problems Brother Hypertension Father Diabetes Mother No Known Problems Sister Relation Name Status Comments Brother Father Mother Sister Social History Tobacco Use Types Packs/Day Years Used Date Smoking Tobacco: Never Smokeless Tobacco: Never Tobacco Cessation:Counseling Given: Not Answered Alcohol Use Standard Drinks/Week Comments Yes 21 (1 standard drink = 0.6 oz pu re alcohol) daily Sex and Gender Information Value Date Recorded Sex Assigned at Not on file Legal Sex Male 1:53 PM EST Gender Identity Not on file Sexual Orientation Not on file Last Filed Vital Signs Vital Sign Reading Time Taken Comments Blood Pressure 138/68 01/26/2025 4:03 PM EDT Pulse 88 01/26/2025 4:03 PM EDT Temperature - - Respiratory Rate - - Oxygen Saturation - - Inhaled Oxygen Concentration - - Weight 124 kg (274 lb) 01/26/2025 4:03 PM EDT Height 175.3 cm (5' 9 ) 01/26/2025 4:03 PM EDT Body Mass Index 40.46 01/26/2025 4:03 PM EDT Plan of Treatment Upcoming Encounters Date Type Department Care Team (Late st Contact Info) Description 04/24/2025 11:30 AM EDT Office Visit [facility] [address] [address] Lisa Donnelly MD [address] [facility] [place] [address] Health Maintenance Due Date Last Done Comments CT Colonography 1960 Colonoscopy 1960 Colorectal Cancer Screening 1960 FIT-DNA (Cologuard) 1960 FIT 1960 Lipid Panel 1960 Medicare Annual Wellness Visit (AWV) 1960 Sigmoidoscopy 1959 MMR Vaccines (1 of 1 - Standard series) 1960 Diabetes Screening 1977 Hepatitis C Screening 1977 PSA Prostate Cancer Screening 2009 COVID-19 Vaccine ( season) 2024 06/16/2023, 04/11/2022, 01/02/2022, Additional history exists Influenza Vaccine (#1) 2025 4, 10/07/2023, 08/21/2023, Additional history exists DTaP/Tdap/Td Vaccines (3 - Td or Tdap) 10/23/2033 10/24/2023, 03/28/2011 Zoster Vaccines Completed 06/12/2020, 04/12/2020 Pneumococcal Vaccine Completed 05/01/2023, 12/09/19 RSV High Risk: (Elderly (60+) or Population) Completed 07/21/2024 HIB Vaccines Aged Out No longer eligi ble based on patient's age to complete this topic HPV Vaccines Aged Out No longer eligi ble based on patient's age to complete this topic Hepatitis A Vaccines Aged Out No long er eligible based on patient's age to complete this topic Hepatitis B Vaccines Aged Out No long er eligible based on patient's age to complete this topic IPV Vaccines Aged Out No longer eligi ble based on patient's age to complete this topic Meningococcal Vaccine Aged Out No tisha yue eligible based on patient's age to complete this topic Rotavirus Vaccines Aged Out No longer eligible based on patient's age to complete this topic Procedures Procedure Name Priority Date/Time Associated Diagnosis Comments [facility] LIPID PANEL Routine 9:45 AM EDT [facility] CREATININE Routine 01/31/2025 9:45 AM EDT [facility] BLOOD UREA NITROGEN Routine 01/31/2025 9:45 AM EDT [facility] ELECTROLYTES Routine 02/01/20 9:45 AM EDT [facility] COAGULATION PROFILE Routine 01/31/2025 9:45 AM EDT [facility] COMPLETE BLOOD COUNT AUTO DIFF Routine 01/31/2025 9:45 AM EDT ELECTROCARDIOGRAM 12 LEAD 2024 9:31 AM EDT from Last 3 Months Results * (ABNORMAL) [facility] Complete Blood Count Auto Diff (01/31/2025 9:45 AM EDT) [facility] White Blood Count 4.3 4.1 - 10.5 [CFU]/mL [facility] Uncorrected WBC 4.3 4.1 - 10.5 10*3/uL [facility] Red Blood Count 4.70 3.90 - 5.60 10*6/uL [facility] Hemoglobin 15.4 13.0 - 17.0 g/dL [facility] Hematocrit 45.3 38.8 - 50.0 % [facility] Mean Corpuscular Volume 96.5 83.5 - 101 fL [facility] Mean Corpuscular Hemoglobin 32.8 27.5 - 35.2 pg [facility] Mean Corpuscular HGB Conc 34.0 32.5 - 35.6 g/dL [facility] Red Cell Distribution Width 13.3 12.0 - 14.8 % [facility] Platelet Count 155 150 - 450 10*3/uL [facility] Mean Platelet Volume 9.0 6.6 - 10.1 fL [facility] Neutrophils % (Auto) 61.0 . % [facility] Lymphocytes % (Auto) 18.6 . % [facility] Monocytes % (Auto) 14.0 . % [facility] Eosinophils % (Auto) 5.4 . % [facility] Basophils % (Auto) 1.0 . % [facility] NRBC% 0.2 0 - 0.5 /100{WBC} [facility] Neutrophils # (Auto) 2.6 1.8 - 7.7 10*3/uL [facility] Lymphocytes # (Auto) 0.8(L) 1.00 - 4.8 10*3/uL [facility] Monocytes # (Auto) 0.6 0.0 - 0.8 10*3/uL [facility] Eosinophils # (Auto) 0.2 0.0 - 0.45 10*3/uL [facility] Basophils # (Auto) 0.0 0.0 - 0.2 10*3/uL [facility] Comment:PERFORMED BY:[place] [address] [facility] DEMONSTRATION HOSPITALQuetaAishaFRANCIA, [place] [phone] MEDICAL DIRECTORJAMAAL GOLDEN M.D. [facility] Whole blood specimen 01/31/2025 9:45 AM EDT us Lisa Donnelly MD LAB BLOOD ORDERABLES Final Result [facility] [address] [place] [address], [facility] [address] [place] [address] * [facility] Blood Urea Nitrogen (01/31/2025 9:45 AM EDT) Pathologist [facility] Blood Urea Nitrogen 25 7 - 25 mg/dL [facility] Plasma specimen or serum specimen or whole blood specimen 01/31/2025 9:45 AM EDT us Lisa Donnelly MD LAB BLOOD ORDERABLES Final Result [facility] [address] [place] [address], [facility] [address] [place] [address] * (ABNORMAL) [facility] Lipid Panel (01/31/2025 9:45 AM EDT) [facility] Cholesterol 140 140 - 200 mg/dL [facility] Comment:Chol less than 200 m g/dl low risk Chol 201-239 mg/dl borderline risk Chol 240 mg/dl and greater high risk [facility] HDL Cholesterol 39 23 - 92 mg/dL [facility] Comment:HDL CHOL ATP-III CLA SSIFICATION Cardiovascular Risk HDL > or equal to 60 mg/dL LOW HDL < 40 mg/dL HIGH [facility] H[facility] Triglyceride w/Reflex 203(H) 0 - 149 mg/dL [facility] Comment:TRIG ATP III CLASSIF ICATION TRIG less than 150 mg/dL Normal TRIG 150-199 mg/dL Borderline high TRIG 200-500 mg/dL High TRIG greater than 500 mg/dL Very high Standard traceable to the Center for Disease Conrtrol and Prevention (CDC) test method. [facility] LDL Cholesterol,Calcula herbert 60 0 - 100 mg/dL [facility] Comment:LDL ATP III CLASSIFI CATION LDL less than 100 mg/dL Optimal LDL 100-129 mg/dL Near or above optimal LDL 130-159 mg/dL Borderline high LDL 160-189 mg/dL High LDL greater than 189 mg/dL Very high [facility] H[facility] VLDL CHOLESTEROL 40 mg/dL [facility] Chol/HDL Ratio 3.6 <5.0 [facility] Comment:PERFORMED BY:[facility] [facility] HE[facility] SYSTEMSAishaKILA, [place] [phone] MEDICAL DIRECTORJAMAAL GOLDEN M.D. [facility] Plasma specimen or serum specimen or whole blood specimen 01/31/2025 9:45 AM EDT Lisa Donnelly MD LAB BLOOD ORDERABLES Final Result [facility] [address] [place] [address], [facility] [address] [place] [address] * [facility] Electrolytes (01/31/2025 9:45 AM EDT) [facility] Sodium 137 136 - 145 mmol/L [facility] Potassium 4.3 3.5 - 5.1 mmol/L [facility] Chloride 101 98 - 107 mmol/L [facility] Carbon Dioxide 29.4 21.0 - 31.0 mmol/L [facility] Anion Gap 10.9 6.0 - 15.0 [facility] Plasma specimen or serum specimen or whole blood specimen 01/31/2025 9:45 AM EDT us Lisa Donnelly MD LAB BLOOD ORDERABLES Final Result Performing Organization Address City/[facility] [place] [address], [facility] [address] [place] [address] * (ABNORMAL) [facility] Creatinine (01/31/2025 9:45 AM EDT) Pathologist [facility] Creatinine 1.36(H) 0.70 - 1.30 mg/dL [facility] NON[facility] H[facility] ESTIMATED GFR 57.752 [facility] Plasma specimen or serum specimen or whole blood specimen 01/31/2025 9:45 AM EDT us Lisa Donnelly MD LAB BLOOD ORDERABLES Final Result Performing Organization Address City/State/[facility] Co de Phone Number [facility] [address] [place] [id number], [facility] [address] [place] [id number] * [facility] Coagulation Profile (01/31/2025 9:45 AM EDT) [facility] Prothrombin Time 11.0 9.0 - 12.9 s [facility] Comment:A hematocrit value g reater than 55% may lead to inaccurate results in coagulation testing. Patients having hematocrit values >55% require a special collection tube for coagulation studies. Please contact the laboratory at [phone] for redraw instructions. [facility] INR 1.[address] [facility] Comment:INR Therapeutic Rang e A) Pre- and Peroperative [...] with mechanical heart valves: 3 - 4.5 [facility] Partial Thromboplastin Time 36.4 25.1 - 36.5 s [facility] Comment:A hematocrit value g reater than 55% may lead to inaccurate results in coagulation testing. Patients having hematocrit values >55% require a special collection tube for coagulation studies. Please contact the laboratory at [phone] for redraw instructions.PERFORMED BY:[address] [phone] MEDICAL DIRECTORJAMAAL GOLDEN M.D. [facility] Platelet poor plasma specimen 01/31/2025 9:45 AM EDT Lisa Donnelly MD LAB BLOOD ORDERABLES Final Result [address] [address], [facility] [address] [place] [address] * Electrocardiogram (01/31/2025 9:31 AM EDT) 01/31/2025 9:31 AM EDT Narrative [facility] - 01/31/2025 3:10 PM EDT [facility] Main [place] [address] [place], [place] [id number] Electrocardiograph Report Signed Patient: Richard Urena MR#: [id number] : 1960 Acct:[id number] Age/Sex: 64 / M ADM Date: 01/31/25 Loc: Room: Type: [facility] Attending Dr: Lisa Donnelly MD Ordering Provider: Lisa Donnelly MD Date of Service: 01/31/2511/21/923 ECG/ECG 12 lead ECG: [facility] PST Copies to: Test Reason : Blood Pressure : */* mmHG Vent. Rate : 75 BPM Atrial Rate : 75 BPM P-R Int : 176 ms QRS Dur : 100 ms QT Int : 358 ms P-R-T Axes : 53 -10 20 degrees QTcB Int : 399 ms Normal sinus rhythm Minimal voltage criteria for LVH, may be normal variant ( R in aVL ) Borderline ECG Confirmed by Gracia Aly ([id number]) on 01/31/2025 3:10:11 PM Referred By: Electronically Signed By: Gracia Aly Transcribed By: MUS Signed By Gracia Aly MD 5 1510 us Lisa Donnelly MD ECG ORDERABLES Final Resu lt [facility] [address] [place] [address], [place] from Last 3 Months Insurance [facility] MEDICARE Care Teams Logging Specialist Relationship Specialty Start Date End Date Socrates Valdovinos DO PCP - General 05/09/20
--- OUTSIDE RECORDS SUMMARY | 2025-03-01 10:55 | XMS_ITS | Encounter Summary ---
Author Organization [facility] Address [address] [place] [address] Phone Care Team Providers Care Firer Retort Name Role Phone Socrates Valdovinos DO Primary Care Provider [phone] Encounter Details Date Type Department Care Team (Late st Contact Info) Description 10/24/[address] [facility] [address] [place] [phone] Scanning, Generic Provider Social History Tobacco Use Types Packs/Day Years Used Date Smoking Tobacco: Never Smokeless Tobacco: Never Alcohol Use Standard Drinks/Week Comments Yes 0 (1 standard drink = 0.6 oz pur e alcohol) daily Sex and Gender Information Value Date Recorded Sex Assigned at Not on file Legal Sex Male 1:53 PM EST Gender Identity Not on file Sexual Orientation Not on file documented as of this encounter Plan of Treatment Upcoming Encounters Date Type Department Care Team (Late st Contact Info) Description 04/24/2025 11:30 AM EDT Office Visit [facility] [address] [address] Lisa Donnelly MD 703 [facility] 2, [address] [address] documented as of this encounter Visit Diagnoses Not on filedocumented in this encounter Additional Health Concerns Assessment Noted Time A fall risk assessment has been complete d for the patient 08/28/2023 11:04 AM EST documented as of this encounter Care Teams Firer Retort Relationship Specialty Start Date End Date Socrates Valdovinos DO PCP - General 05/09/20 documented as of this encounter
--- OUTSIDE RECORDS SUMMARY | 2025-03-01 10:55 | XMS_ITS | Encounter Summary ---
Author Organization [facility] Address [address] [place] [address] Phone Care Team Providers Care Tuckpointer Cleaner Caulker Name Role Phone Socrates Valdovinos DO Primary Care Provider [phone] Encounter Details Date Type Department Care Team (Late st Contact Info) Description 05/02/2024 Scanned Document [facility] [address] [place] [id number] Scanning, Generic Provider Social History Tobacco Use [...] Description 04/24/2025 11:30 AM EDT Office Visit [place] [id number] [address] [phone] Lisa Donnelly MD [facility] [facility] 2, [address] [address] documented as of this encounter Visit Diagnoses Not on filedocumented in this encounter Additional Health Concerns Assessment Noted Time A fall risk assessment has been complete d for the patient 08/28/2023 11:04 AM EST documented as of this encounter Care Teams Tuckpointer Cleaner Caulker Relationship Specialty Start Date End Date Socrates Valdovinos DO PCP - General 05/09/20 documented as of this encounter
--- OUTSIDE RECORDS SUMMARY | 2025-03-01 10:55 | XMS_ITS | Encounter Summary ---
Author Organization [facility] Address [address] [place] [address] Care Team Providers Care Manager Mortgage Name Role Phone Socrates Valdovinos DO Primary Care Provider [phone] Wilton Feliz MD Unavailable [phone] Source Comments In the event this information is protected by the Federal Confidentiality of Alcohol and Drug AbusePatient Records regulations: The Federal rules restrict any use of the information to criminally investigate or prosecute any alcohol or drug abuse patient.[facility] Encounter Details Date Type Department Care Team (Late st Contact Info) Description 04/01/2022 Patient Msg [facility] [place] [address] [place] [address] Provider, Daniel Spine Procedure Appointment Social History Tobacco Use [...] N ot on file 12/04/2021 Data from: https://www.neighborhoodatlas.medicine.[email or web address].edu/. Last address used for calculation [address] [...] 03/08/2025 2:00 PM EDT Office Visit Neurosurgery [address] [place] [address] Shree Banks MD [address] [place] [address] follow up documented as of this encounter Visit Diagnoses Not on filedocumented in this encounter Care Teams Manager Mortgage Relationship Specialty Start Date End Date Socrates Valdovinos DO [address] [place] [address] PCP - General 02/04/10 Wilton Feliz MD [address] [facility] [address] [place] [id number] Neurology 08/23/24 documented as of this encounter
--- OUTSIDE RECORDS SUMMARY | 2025-03-01 10:55 | XMS_ITS | Encounter Summary ---
Author Organization [facility] Address [address] [place] [address] Phone Care Team Providers Care Cardiac Catheterization Technologist Name Role Phone Socrates Valdovinos DO Primary Care Provider [phone] Encounter Details Date Type Department Care Team (Late st Contact Info) Description 01/31/2025 Scanned Document [facility] [address] [place] [phone] Scanning, Generic Provider Social History Tobacco Use [...] Description 04/24/2025 11:30 AM EDT Office Visit [place] [id number] [phone] Lisa Donnelly MD 703 [facility] 2, [address] [address] documented as of this encounter Visit Diagnoses Not on filedocumented in this encounter Additional Health Concerns Assessment Noted Time A fall risk assessment has been complete d for the patient 01/26/2025 3:59 PM EDT documented as of this encounter Care Teams Cardiac Catheterization Technologist Relationship Specialty Start Date End Date Socrates Valdovinos DO PCP - General 05/09/20 documented as of this encounter
--- OUTSIDE RECORDS SUMMARY | 2025-03-01 10:55 | XMS_ITS | Clinical Summary ---
Author Organization [facility] Address [address] [place] [address] Care Team Providers Care Mirror Inspector Name Role Phone Socrates Valdovinos DO Primary Care Provider [phone] Wilton Feliz MD Unavailable [phone] Allergies Active Allergy Reactions Criticality Noted Date Comments Latex Rash 09/04/2016 Penicillins Anaphylaxis High 06/07/2014 Medications baclofen (LIORESAL) 20 mg tabletIndications :Stroke (HCC),Headache Take 20 mg by mouth daily at bedtime. 05/30/20 14 Active furosemide (LASIX) 40 mg tabletIndications :Stroke (HCC),Headache Take 40 mg by mouth once daily. 05/29/20 14 Active doxazosin (CARDURA) 4 mg tabletIndications :Stroke (HCC),Headache Take 4 mg by mouth once daily. 05/01/20 14 Active metoprolol succinate XL, long acting, (TOPROL XL) 50 mg 24 hr tabletIndications :Stroke (HCC),Headache Take 50 mg by mouth once daily. 06/06/20 14 Active cyanocobalamin (VITAMIN B-12) 1,000 mcg tabIndications:St roke (HCC),Headache Take 1,000 mcg by mouth once daily. Active fluticasone (FLONASE) 50 mcg/actuation nasal sprayIndications: Stroke (HCC),Headache Use 2 Sprays in each nostril twice daily. Active DULoxetine (CYMBALTA) 30 mg capsule Take 1 capsule by mouth once daily. Take with 60 mg for 90 mg total dose. 30 capsule 11 10/21/19 Active Additional Information Patient taking differently:30 mg ORAL3 TIMES DAILY, Takes 30 mg three times daily per patient, Reported on 11/30/2024 atorvastatin (LIPITOR) 80 mg tablet Take 80 mg by mouth daily at bedtime. Active eletriptan (RELPAX) 40 mg tablet Take 40 mg by mouth as needed. may repeat in 2 hours if necessary Active dicyclomine (BENTYL) 10 mg capsule Take 20 mg by mouth as needed. 4 times daily as needed Active doxepin capsule 10 mg Take 10 mg by mouth daily at bedtime. Takes 2 tabs at bedtime Active LACTOBACILLUS ACIDOPHILUS (PROBIOTIC ACIDOPHILUS ORAL) Take 1 capsule by mouth once daily. Active CALCIUM CARBONATE/VITAMIN D3 (CALCIUM 600 + D ORAL) Take 1 tablet by mouth once daily. Active MAGNESIUM ORAL Take 400 mg by mouth once daily. Active finasteride (PROSCAR) 5 mg tablet Take 5 mg by mouth daily at bedtime. Active docosahexaenoic acid/epa (FISH OIL ORAL) Take 5 capsules by mouth once daily. Active fremanezumab-vfrm (AJOVY SYRINGE SUBCUTANEOUS) Inject 250 mg/mL subcutaneously. every 28 days for migraines Active CHROMIUM PICOLINATE ORAL Take 800 mcg by mouth once daily. Active docusate sodium (COLACE) 100 mg capsule Take 1 capsule by mouth twice daily. 08/20/19 Active telmisartan (MICARDIS) 80 mg tablet Take 80 mg by mouth once daily. 12/12/19 Active clopidogrel (PLAVIX) 75 mg tablet Take 1 tablet by mouth once daily. Please hold this medication until post op day 01/07/20 Active lactobacillus combination no.4 3 billion cell cap Take 1 capsule by mouth once daily. 30 capsule 3 02/28/20 Active QUEtiapine (SEROQUEL) 25 mg tablet TAKE ONE TABLET BY MOUTH EVERY NIGHT AT BEDTIME 30 tablet 04/08/20 Active Pregabalin (LYRICA) 200 mg capsuleIndication s:Lumbar radiculopathy Take 1 capsule by mouth three times daily for 90 days. 90 capsule 2 05/06/20 22 Active methocarbamol (ROBAXIN) 500 mg tablet Take 1,000 mg by mouth. 09/25/19 22 Active HYDROcodone-Aceta minophen (NORCO) 7.5-325 mg per tablet Take 1 tablet by mouth every 8 hours as needed for pain. 0 Active methylPREDNISolon e (MEDROL, JOAQUÍN,) 4 mg Dose-Pack As instructed per package 21 tablet 02/10/20 25 025 Active Problems Problem Noted Date Diagnosed Date Cervical disc disorder with radiculopathy 2024 Lumbar radiculopathy 05/13/2022 Anemia 01/04/2022 Obesity, Class II, BMI 35-39.9 01/01/2022 Lumbar pseudoarthrosis 12/31/2021 Sleep apnea 12/17/2021 Assessment & Plan (12/17/2021 11:31 AM EDT): Assessment: compliant with CPAP Weakness of left lower extremity 11/27/2021 Back pain 11/21/2021 Low back pain 11/21/2021 Delirium 09/15/2021 Post-operative infection 09/12/2021 Assessment & Plan (12/17/2021 11:29 AM EDT): Assessment: see HPI Obesity 09/12/2021 Assessment & Plan (12/17/2021 11:30 AM EDT): Assessment: diet and exercise encouraged, BMI 37 Mixed hyperlipidemia 08/18/2021 Assessment & Plan (12/17/2021 11:28 AM EDT): Assessment: managed with med, stable BPH (benign prostatic hyperplasia) 08/18/2021 GERD (gastroesophageal reflux disease) Assessment & Plan (12/17/2021 11:28 AM EDT): Assessment: managed with med, stable CKD (chronic kidney disease) stage 3, GFR 30-59 ml/min 08/18/2021 Assessment & Plan (12/17/2021 11:29 AM EDT): Assessment: follows up with PCP, stable Creatinine Date Value Ref Range Status 11/27/2021 1.24 (H) 0.73 - 1.22 mg/dL Final 11/22/2021 1.20 0.73 - 1.22 mg/dL Final 11/22/2021 1.29 (H) 0.73 - 1.22 mg/dL Final 09/22/2021 1.11 0.73 - 1.22 mg/dL Final Status post lumbar spinal fusion 08/17/2021 Spondylolisthesis, lumbar region 08/16/2021 Primary hypertension 08/07/2021 Overview (08/07/2021): Medication management BP at OV 131/82 Assessment & Plan (12/17/2021 11:28 AM EDT): Assessment: managed with med, stable 12/17/2021 124/78 11/21/2021 129/82 10/09/2021 119/72 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 Feliz- [facility] Chronic pain syndrome 07/18/2014 Opioid dependence 07/18/2014 Assessment & Plan (08/07/2021 2:00 PM EST): Assessment: [place] TID Resolved Problems Problem Noted Date Diagnosed Date Resolved Date Secondary hypertension 08/07/202108/07 Sacroiliitis 10/17/2015 08/18/2021 Pseudoarthrosis of lumbar spine 12/08/2014 08/18/2021 Opiate dependence 10/20/2014 08/18/2021 Headache(784.0) 07/18/2014 08/18/2021 Chronic daily headache 07/18/201408/18 Chronic back pain 07/18/2014 08/18/2021 Medication overuse headache 07/18/2014 08/18/2021 Encounters Date Type Department Care Team Description 02/23/2025 [facility]phone [facility] [address] [facility] [place] [id number] Shree Banks MD Patient Question 02/20/2025 Telephone Neurology [address] [id number] Shree Banks MD Results 02/13/2025 8:30 AM EDT Office Visit Transplant Center [address] [phone] Providers, Advanced Practice Spondylosis (Primary Dx); Chronic bilateral low back pain with bilateral sciatica 02/10/2025 Orders Only Transplant Center [address] [phone] Kizzy Shook PA-C Kidney replaced by transplant ([facility]) 02/09/2025 [facility]phone [facility] [address] [facility] [place] [place] [address] Shree Banks MD Medication Request 02/09/2025 Travel 01/12/2025 Get Medical Advice Neurosurgery [address] [place] [address] Shree Banks MD David Hirt`s Surgery status 01/09/2025 Telephone Neurology [address] [place] [address] Shree Banks MD Patient Question 01/04/2025 11:40 AM EDT Office [facility] [address] [facility] [place] [place] [address] Shree Banks MD Lumbar pseudoarthrosis (Primary Dx) 12/28/2024 Patient Msg Neurosurgery [address] [place] [address] Shree Banks MD Appointment Request 12/07/2024 1:40 PM EDT Procedure Neurology [address] [facility] [place] [address] EMG 12/07/2024 Travel 12/07/2024 Get Medical Advice Neurosurgery [address] [place] [address] Shree Banks MD David Hirt`s next spine injection Specific location info 12/05/2024 Get Medical Advice Neurosurgery [address] [place] [address] Shree Banks MD Location of Richard Urena`s next spine injection 12/01/2024 Patient Msg [facility]ine [place] [address] [place] [address] Provider, [facility] Scheduling Spine Procedure Appointment 11/30/2024 11:40 AM EDT Office Visit Neurosurgery [address] [place] [address] Shree Banks MD Lumbar radiculopathy (Primary Dx) 11/30/2024 Travel from Last 3 Months Immunizations Immunization Administration Dates Next Due COVID-19 original vaccine, a ge 12+ yr, monovalent ([employer]ounds - KING TOP) 01/02/2022,01/02/2022(Deferred: Patient Refused - pt having increasing pain; does not want at this time),01/02/2022(Deferred: - not given on last shift per report) influenza (HD-IIV3) vaccine, age 65+ yr, high dose, trivalent, PF (FLUZONE HIGH-DOSE) 02/28/2020 influenza (IIV3) vaccine, ag e 6 mo - 64 yr, trivalent (AFLURIA, FLULAVAL, FLUVIRIN, FLUZONE) 04/21/2014 influenza (IIV3) vaccine, tr ivalent (AFLURIA, FLULAVAL, FLUVIRIN, FLUZONE) 04/26/2018,02/28/2016,04/21/2014,03/28 influenza (IIV4) vaccine, ag e 6 mo - 64 yr, quadrivalent, PF (AFLURIA, FLUARIX, FLULAVAL, FLUZONE) 03/25/2019,04/21/2017,01/27/2017 influenza (RIV4) vaccine, re combinant, quadrivalent, PF (FLUBLOK) 04/12/2020 influenza (ccIIV4) vaccine, age 6+ mo, quadrivalent, PF (FLUCELVAX) 04/25/2021 pneumococcal polysaccharide (PPV23) vaccine, 23 valent (PNEUMOVAX 23) 12/08/2014 tetanus diphtheria pertussis (Tdap) vaccine, age 7+ yr (ADACEL, BOOSTRIX) 03/28/2011 tetanus toxoid (TT) vaccine 03/28/2011 zoster (RZV) vaccine, recomb inant (SHINGRIX) 06/12/2020,04/12/2020 Family History Medical History Relation Comments Diabetes Mother Relation Status Comments Mother Social History Tobacco Use Types Packs/Day Years Used Date Smoking Tobacco: Never Smokeless Tobacco: Never Tobacco Cessation:Counseling Given: Not Answered Alcohol Use Standard Drinks/Week Comments Yes 0 [...] is lower risk 8 07/20/2024 Data from: https://www.neighborhoodatlas.medicine.[facility]/. Last address used for calculation [address] 07/20/2024 Sex and Gender Information Value Date Recorded Sex Assigned at Male 01/28/2021 2:16 PM EDT Legal Sex Male 9:02 AM EST Gender Identity Male 01/28/2021 2:16 PM EDT Sexual Orientation Straight 01/28/2021 2: 16 PM EDT Last Filed Vital Signs Vital Sign Reading Time Taken Comments Blood Pressure 134/86 02/13/2025 8:36 AM EDT Pulse 75 02/13/2025 8:36 AM EDT Temperature 36.7 C (98.1 F) 02/13/2025 8:36 AM EDT Respiratory Rate 18 09/15/2024 10:2 5 AM EDT Oxygen Saturation 97% 02/13/2025 8:36 AM EDT Inhaled Oxygen Concentration - - Weight 123.9 kg (273 lb 2.4 oz) 02/13/2025 8:36 AM EDT Height 176.5 cm (5' 9.49 ) 02/13/2025 8:36 AM ED T Body Mass Index 39.77 02/13/2025 8:36 AM EDT Plan of Treatment Upcoming Encounters Date Type Department Care Team (Late st Contact Info) Description 03/08/2025 2:00 PM EDT Office Visit Neurosurgery [address] [place] [address] Shree Banks MD [address] [place] [address] follow up Health Maintenance Due Date Last Done Comments Annual PCP Team Chronic Dise ase Visit 1977 Anxiety Screening 1977 Depression Screening 1977 HIV Screening 1977 Hepatitis C Screening [address] CT Colonography 2004 Cologuard (FIT-DNA) 2004 Colonoscopy 2004 Colorectal Cancer Screening 2004 Fecal Occult Blood 2004 Sigmoidoscopy 2004 Advance Directive Discussion 06/29/2024 Medicare Advantage Annual We llness Visit 06/29/2024 Diabetes Screening 01/06/2025 01/06/2022, 0 01/05/2022, 01/04/2022, Additional history exists Influenza Vaccine (#1) 2025 , 10/07/2023, 10/05/2023, Additional history exists Serum Creatinine 01/31/2026 01/31/2025, 04/2022, 01/05/2022, Additional history exists Prostate Cancer Screening Discussion 08/31/2029 08/31/2024 Lipid Screening 01/31/2030 01/31/2025 DTaP,Tdap,Td Vaccine (3 - Td or Tdap) 10/23/2033 10/24/2023, 03/28/2011 Shingrix Vaccine Completed 06/12/2020, 04/12/2020 Pneumococcal Vaccine: 50+ Completed 05/01/2023, 05/2015 RSV Vaccine Completed 07/21/2024 Medical Devices Implanted Type Area Information Security Device Identifier Shelf Expiration Date Model / Serial / Lot Graft Bn Infs Rhbmp-2 5.6ml - [id number] Implanted:Qty: 1 on 12/07/2014 at [facility] [employer]K 03/29/2016 [id number] / / [id number] Graft Bn Canc 15ml Allgrft - [id number] Implanted:Qty: 1 on 12/07/2014 at [facility] 03/09/2017 [id number] / [id number] / Graft Bn Canc 15ml Allgrft - [id number] Implanted:Qty: 1 on 12/07/2014 at [facility] 08/21/2017 [id number] / [id number] / Graft Bn Canc 15ml Allgrft - [id number] Implanted:Qty: 1 on 12/07/2014 at [facility] Bone MTF 08/08/2017 [id number] / [id number] / Graft Infuse 14mm Small Bovine Collagen Rhbmp-2 23mm Bone Absorbable Sponge - [id number] Implanted:Qty: 1 on 08/16/2021 by Shree Banks MD at [facility] Bone N/A: Spine - Vertebrae [employer] 02/27/2023 [id number] / / [id number] Graft Bone Sub 5cc Dbm Inert Reverse Phase Carrier Gel Synthetic Osteosparx - [id number] Implanted:Qty: 1 on 12/31/2021 by Shree Banks MD at [facility] Bone N/A: Spine - Lumbar [facility] 10/25/2023 [id number] / [id number] Graft Infuse 14mm Small Bovine Collagen Rhbmp-2 23mm Bone Absorbable Sponge - [id number] Implanted:Qty: 1 on 12/31/2021 by Shree Banks MD at [facility] Bone N/A: Spine - Lumbar [employer] 03/28/2024 [id number] / / [id number] Substitute Mastergraft Bone Graft Matrix Block Extension Void Filler 5ml - [id number] Implanted:Qty: 1 on 12/31/2021 by Shree Banks MD at [facility] Graft N/A: Spine - Lumbar [employer] 04/28/2024 [id number] / / [id number] Pkm-Lq-P-Kind Implant - [id number] Implanted:Qty: 1 on 12/07/2014 at [facility] Implant JANETT [id number] / / Description:C1713 5.0X20MM S CREW Skl-Co-G-Kind Implant - [id number] Implanted:Qty: 1 on 12/07/2014 at [facility] Implant JANETT [id number] / / Description:14MMX [id number] X 4 DEG VERTEBR Bsl-Tr-Y-Kind Implant - [id number] Implanted:Qty: 1 on 12/07/2014 at [facility] Implant JANETT [id number] / / [id number] Description:C1713 PLATE JAZMIN SPNL Hir-Xr-A-Kind Implant - [id number] Implanted:Qty: 1 on 12/07/2014 at [facility] Implant JANETT [id number] / / [id number] Description:C1713 SCREW BN 1 .5MM 50MM Dsq-Ck-D-Kind Implant - [id number] Implanted:Qty: 1 on 12/07/2014 at [facility] Implant JANETT [id number] / / [id number] Description:C1769 WIRE FIX K RSH SHRP CNN SPNL Joshua Nicolle 3 Ti - [id number] Implanted:Qty: 1 on 12/07/2014 at [facility] Implant JANETT SPINE [id number] / / Atc-Ob-L-Kind Implant - [id number] Implanted:Qty: 2 on 12/07/2014 at [facility] Implant JANETT [id number] / / Description:C1713 SCREW BN S PNL 5MM 25MM Prolift Expandable Spacer Implanted:Qty: 1 on 08/16/2021 by Shree Banks MD at [facility] Implant N/A: Spine - Vertebrae JANETT 05/11/2023 [id number] / / [id number] Screw Nicolle 3 Titanium Set Joshua Spine - [id number] Implanted:Qty: 5 on 08/16/2021 by Shree Banks MD at [facility] Implant N/A: Spine - Vertebrae JANTET SPINE [id number] / / Vargas Polyaxial Screw 55mm X 8.5mm Implanted:Qty: 1 on 12/31/2021 by Shree Banks MD at [facility] Implant N/A: Spine - Lumbar JANETT [id number] / / Vargas Polyaxial Screw 100mm X 8.5mm Implanted:Qty: 2 on 12/31/2021 by Shree Banks MD at [facility] Implant N/A: Spine - Lumbar JANETT [id number] / / Screw Nicolle 3 Titanium Set Joshua Spine - [id number] Implanted:Qty: 7 on 12/31/2021 by Shree Banks MD at [facility] Implant N/A: Spine - Lumbar JANETT SPINE [id number] / / Lamonte Nicolle 3 6mm Titanium 50mm Spinal Radiolucent - [id number] Implanted:Qty: 1 on 08/16/2021 by Shree Banks MD at [facility] Lamonte N/A: Spine - Vertebrae JANETT SPINE [id number] / / Lamonte Nicolle 3 6mm Titanium 70mm Spinal Radiolucent - [id number] Implanted:Qty: 1 on 08/16/2021 by Shree Banks MD at [facility] Lamonte N/A: Spine - Vertebrae JANETT SPINE [id number] / / Lamonte Nicolle 3 6mm Titanium 100mm Spinal - [id number] Implanted:Qty: 1 on 12/31/2021 by Shree Banks MD at [facility] Lamonte N/A: Spine - Lumbar JANETT SPINE [id number] / / Lamonte Nicolle 3 6mm Titanium 80mm Spinal Radiolucent - [id number] Implanted:Qty: 1 on 12/31/2021 by Shree Banks MD at [facility] Lamonte N/A: Spine - Lumbar JANETT SPINE [id number] / / Screw Nicolle 3 Vargas 6.5mm 50mm Bone Polyaxial Nonsterile Spine - [id number] Implanted:Qty: 2 on 08/16/2021 by Shree Banks MD at [facility] Screw N/A: Spine - Vertebrae JANETT SPINE [id number] / / Screw 9.5mm 50mm Bone Revision Polyaxial Iliosacral - [id number] Implanted:Qty: 1 on 12/31/2021 by Shree Banks MD at [facility] Screw N/A: Spine - Lumbar JANETT SPINE [id number] / / Procedures Procedure Name Priority Date/Time Associated Diagnosis Comments UA DIP, URINE (POC) Routine 02/13/2025 9:40 AM EDT EMG(NEURO/NI) Routine 12/07/2024 3:03 PM EDT Lumbar radiculopathy BASIC METABOLIC PANEL Routine 01/06/2022 3:07 AM EDT from Last 3 Months or Most Recently Relevant to Health Maintenance Results * UA DIP, URINE (POC) (02/13/2025 9:40 AM EDT) GLUCOSE UA (POCT) Negative Negative mg/dL [facility] BILIRUBIN UA (POCT) Negative Negative [facility] KETONE UA (POCT) Negative Negative mg/dL [facility] SPECIFIC GRAVITY UA (POCT) 1.015 1.005 - 1.030 [facility] HEMOGLOBIN/BLOOD UA (POCT) Negative Negative [facility] PH UA (POCT) 6.0 4.5 - 8.0 [facility] PROTEIN UA (POCT) Negative Negative mg/dL [facility] UROBILINOGEN UA (POCT) 0.2 Normal E.U./dL [facility] NITRITE UA (POCT) Negative Negative [facility] LEUKOCYTES UA (POCT) Negative Negative [facility] COLOR UA (POCT) Yellow [facility] CLARITY UA (POCT) Clear [facility] 02/13/2025 9:40 AM EDT Narrative [facility]INT [facility]ARE - 02/13/2025 9:40 AM EDT Location:[facility], [address] [place] [address], [facility] Ccf Provider POC TESTING Final Result Performing Organization Address City/[facility]/ZIP Co de Phone Number [facility] POINT [facility] CARE [address] * EMG(NEURO/NI) (12/07/2024 3:03 PM EDT) 12/07/2024 3:03 PM EDT [facility] - 12/08/2024 12:20 PM EDT Results can be seen in attached scanned documents. If you are a patient reviewing this test result, call the doctor who ordered the test with any questions. Shree Banks MD NEUROLOGY Final Result [facility] * (ABNORMAL) BASIC METABOLIC PNL (01/06/2022 3:07 AM EDT) Glucose 111(H) 74 - 99 mg/dL 01/06/2022 6:35 AM EDT [facility] Comment: The [place] Diabetes Association (ADA) provides guidance for cutoff [...] Standards of Medical Care in Diabetes 2016, [place] Diabetes Association. Diabetes Care. 2016.39(Suppl 1). BUN 9 9 - 24 mg/dL 01/06/2022 6:35 AM EDT [facility] Creatinine 1.19 0.73 - 1.22 mg/dL 01/06/2022 6:35 AM EDT [facility] Sodium 141 136 - 144 mmol/L 01/06/2022 6:35 AM EDT [facility] Potassium 3.9 3.7 - 5.1 mmol/L 01/06/2022 6:35 AM EDT [facility] Chloride 105 97 - 105 mmol/L 01/06/2022 6:35 AM EDT [facility] CO2 27 22 - 30 mmol/L 01/06/2022 6:35 AM EDT [facility] Anion Gap 9 9 - 18 mmol/L 01/06/2022 6:35 AM EDT [facility] Calcium, Total 8.8 8.5 - 10.2 mg/dL 01/06/2022 6:35 AM EDT [facility] Estimated Glomerular Filtration Rate 69 >=60 mL/min/1. 73m 01/06/2022 6:35 AM EDT [facility] Comment:Estimated Glomerular Filtration Rate (eGFR) is calculated using the 2020 CKD-EPI creatinine equation. This equation utilizes serum creatinine, sex, and age as parameters. The creatinine assay has traceable calibration to isotope dilution- mass spectrometry. Refer to KDIGO guidelines for clinical interpretation. In patients with unstable renal function, e.g. those with acute kidney injury, the eGFR may not accurately reflect actual GFR. Blood BLOOD SPECIMEN / Unknown Venipuncture / Unknown 01/06/2022 3:07 AM EDT 01/06/2022 5:46 AM EDT us Brandi Lu [employer] Final Result [facility] [address] [place] [address], from Last 3 Months or Most Recently Relevant to Health Maintenance Insurance [facility] [employer] O Care Teams Mirror Inspector Relationship Specialty Start Date End Date Socrates Valdovinos DO [address] [place] [address] PCP - General 02/04/10 Wilton Feliz MD [address] [facility] [address] [place] [address] Neurology 08/23/24
--- OUTSIDE RECORDS SUMMARY | 2025-03-01 10:55 | XMS_ITS | Encounter Summary ---
Author Organization [facility] Address [facility] [place] [address] Care Team Providers Care Education Assistant Name Role Phone Socrates Valdovinos DO Primary Care Provider [phone] Wilton Feliz MD Unavailable [phone] Source Comments In the event this information is protected by the Federal Confidentiality of Alcohol and Drug AbusePatient Records regulations: The Federal rules restrict any use of the information to criminally investigate or prosecute any alcohol or drug abuse patient.[facility] Encounter Details Date Type Department Care Team (Late st Contact Info) Description 08/24/2024 Patient Msg Ambulatory Surgery [address] [place] [address] Provider, Ccoumou change in time Social History Tobacco Use Types Packs/Day [...] place to sleep or slept in a detention (including now)? No 11/22/2021 Area Deprivation Index Answer Date Arsalan rded National Score (1-100), lower number is lower ri sk 87 07/20/2024 State Score (1-10), lower number is lower risk 8 07/20/2024 Data from: https://www.neighborhoodatlas.medicine.[facility].edu/. Last address used for calculation [address] 07/20/2024 Sex and Gender Information Value [...] Author No 01/06/2022 6:27 PM EDT Radha Esacmilla RN documented in this encounter Plan of Treatment Upcoming Encounters Date Type Department Care Team (Late st Contact Info) Description 03/08/2025 2:00 PM EDT Office Visit Neurosurgery [address] [place] [address] Shree Banks MD [address] [place] [address] follow up documented as of this encounter Visit Diagnoses Not on filedocumented in this encounter Care Teams Education Assistant Relationship Specialty Start Date End Date Socrates Valdovinos DO [address] [facility] [place] [address] PCP - General 02/04/10 Wilton Feliz MD [address] [facility] [address] [place] [address] Neurology 08/23/24 documented as of this encounter
--- OUTSIDE RECORDS SUMMARY | 2025-03-01 10:55 | XMS_ITS | Encounter Summary ---
Author Organization [facility] Address [address] [place] [address] Care Team Providers Care Business Operations Director Name Role Phone Socrates Valdovinos MD Primary Care Provider [phone] Kristi Blake Unavailable Reason for Visit * Reason Comments Med Change Request Encounter Details Date Type Department Care Team (Late st Contact Info) Description 03/22/2024 Refill TEQUILA MUSKEGON [address] [facility] [address] [place] [address] Kristi Blake PA [address] [place] [address] Lumbar radiculopathy Social History Tobacco Use Types Packs/Day Years [...] Telephone Encounter - Narayan Russo MA - 03/22/2024 2:35 PM EDT I am seeing conflicting information on this medication. I see we have sent it in the past but it notes that the rx should be cont' per PCP. Can you verify if we can send this and how the pt should betaking the med. Thank you! documented in this encounter Plan of Treatment Upcoming Encounters Date Type Department Care Team (Late st Contact Info) Description 03/06/2025 9:20 AM EDT Office Visit [facility] [address] [place] [address] Rosey Dubose MD [address] [place] [address] 03/06/2025 10:30 AM EDT Office Visit [facility] [address] [place] [address] Abdi Mckeon PA [address] [facility] [place] [address] documented as of this encounter Visit Diagnoses Diagnosis Lumbar radiculopathy Thoracic or lumbosacral neuritis or radiculitis, unspecified documented in this encounter Care Teams Business Operations Director Relationship Specialty Start Date End Date Socrates Valdovinos MD [address] [facility] [place] [address] PCP - General Family Medicine 10/29/23 Kristi Blake PA [address] [place] [address] Physician Alkylation Operator Neurology 09/08/24 documented as of this encounter
--- OUTSIDE RECORDS SUMMARY | 2025-03-01 10:55 | XMS_ITS | Encounter Summary ---
Author Organization [facility] Address [facility] [place] [address] Care Team Providers Care Staff Nuclear Weapons Officer Name Role Phone Socrates Valdovinos DO Primary Care Provider [phone] Wilton Feliz MD Unavailable [phone] Source Comments In the event this information is protected by the Federal Confidentiality of Alcohol and Drug AbusePatient Records regulations: The Federal rules restrict any use of the information to criminally investigate or prosecute any alcohol or drug abuse patient.[facility] Reason for Visit * Reason Comments Results Encounter Details Date Type Department Care Team (Late st Contact Info) Description 02/20/2025 Telephone Neurology [address] [place] [address] Shree Banks MD [address] [place] [address] Results Social History Tobacco Use Types Packs/Day Years [...] place to sleep or slept in a assisted (including now)? No 11/22/2021 Area Deprivation Index Answer Date Arsalan rded National Score (1-100), lower number is lower ri sk 87 07/20/2024 State Score (1-10), lower number is lower risk 8 07/20/2024 Data from: https://www.neighborhoodatlas.medicine.[facility].edu/. Last address used for calculation [address] 07/20/2024 Sex and Gender Information Value [...] * Telephone Encounter - Yolanda Conde - 02/20/2025 10:01 AM EDT Pt phoned to follow up w results of recent test. Please call and advise Pt phone #[phone] documented in this encounter Plan of Treatment Upcoming Encounters Date Type Department Care Team (Late st Contact Info) Description 03/08/2025 2:00 PM EDT Office Visit Neurosurgery [address] [place] [address] Shree Banks MD [address] [place] [address] follow up documented as of this encounter Visit Diagnoses Not on filedocumented in this encounter Care Teams Staff Nuclear Weapons Officer Relationship Specialty Start Date End Date Socrates Valdovinos DO [address] [place] [address] PCP - General 02/04/10 Wilton Feliz MD [address] [facility] [address] [place] [address] Neurology 08/23/24 documented as of this encounter
--- OUTSIDE RECORDS SUMMARY | 2025-03-01 10:56 | XMS_ITS | Encounter Summary ---
Author Organization [facility] Address [facility] [place] [address] Care Team Providers Care Student Services Director Name Role Phone Socrates Valdovinos DO Primary Care Provider [phone] Wilton Feliz MD Unavailable [phone] Source Comments In the event this information is protected by the Federal Confidentiality of Alcohol and Drug AbusePatient Records regulations: The Federal rules restrict any use of the information to criminally investigate or prosecute any alcohol or drug abuse patient.[facility] Encounter Details Date Type Department Care Team (Late st Contact Info) Description 09/15/2024 Patient Msg Ambulatory Surgery [address] [place] [address] Provider, [facility] Discharge Social History Tobacco Use Types Packs/Day Years [...] place to sleep or slept in a halfway (including now)? No 11/22/2021 Area Deprivation Index Answer Date Arsalan rded National Score (1-100), lower number is lower ri sk 87 07/20/2024 State Score (1-10), lower number is lower risk 8 07/20/2024 Data from: https://www.neighborhoodatlas.medicine.[facility].edu/. Last address used for calculation [address] 07/20/2024 Sex and Gender Information Value [...] 03/08/2025 2:00 PM EDT Office Visit Neurosurgery [address] [place] [address] Shree Banks MD [address] [place] [address] follow up documented as of this encounter Visit Diagnoses Not on filedocumented in this encounter Care Teams Student Services Director Relationship Specialty Start Date End Date Socrates Valdovinos DO [address] [facility] [place] [address] PCP - General 02/04/10 Wilton Feliz MD [address] [facility] [address] [place] [address] Neurology 08/23/24 documented as of this encounter
--- OUTSIDE RECORDS SUMMARY | 2025-03-01 10:56 | XMS_ITS | Clinical Summary ---
Author Organization [facility] Address [address] [place] [address] Care Team Providers Care Industrial Green Systems Designer Name Role Phone Socrates Valdovinos MD Primary Care Provider [phone] Kristi Blake Unavailable Allergies Active Allergy Reactions Criticality Noted Date Comments Buspirone Headache 05/18/2024 Latex Rash High 09/04/2016 Other Reaction(s): blisters, Unknown This patient is not Allergic to Albuterol. Penicillins Anaphylaxis,Swelling High 06/07/2014 Other Reaction(s): Anaphylaxis, throat swelled, Throat swelling, Unknown Medications HYDROcodone-aceta minophen (Meridian) 7.5-325 MG tablet Take 1 tablet by mouth in the morning and 1 tablet in the evening and 1 tablet before bedtime. Active promethazine (Phenergan) 25 MG tablet Take 25 mg by mouth every 6 (six) hours if needed for nausea or vomiting Active potassium chloride CR (Klor-Con M20) 20 MEQ ER tablet Take 20 mEq by mouth Daily Do not crush or chew. Active baclofen (Lioresal) 20 MG tablet Take 20 mg by mouth at bedtime Active furosemide (Lasix) 40 MG tablet Take 40 mg by mouth Daily Active clopidogrel (Plavix) 75 MG tablet Take 75 mg by mouth Daily Active fluticasone (Flonase) 50 MCG/ACT nasal spray Administer 2 sprays into each nostril Daily Shake gently. Before first use, prime pump. After use, clean tip and replace cap. Active doxazosin (Cardura) 4 MG tablet Take 4 mg by mouth at bedtime Active atorvastatin (Lipitor) 80 MG tablet Take 80 mg by mouth Daily Active telmisartan (MIcarDIS) 80 MG tablet Take 80 mg by mouth Daily Active metoprolol succinate XL (Toprol-XL) 50 MG 24 hr tablet Take 50 mg by mouth Daily Do not crush or chew. Active finasteride (Proscar) 5 MG tablet Take 5 mg by mouth Daily Do not crush, chew, or split. Active ferrous sulfate 325 (65 Fe) MG tablet Take 325 mg by mouth in the morning. Take with meals. Active valACYclovir (Valtrex) 500 MG tablet Take 500 mg by mouth if needed Active doxepin (SINEquan) 10 MG capsule Take 10 mg by mouth at bedtime Active aspirin 81 MG EC tablet Take 81 mg by mouth Daily Active omeprazole (PriLOSEC) [address] capsule Take 40 mg by mouth in the morning. Take before meals. Do not crush or chew.. Active sildenafil (Viagra) 50 MG tablet Take 50 mg by mouth Daily as needed for erectile dysfunction Active dicyclomine (Bentyl) 20 MG tablet Take 20 mg by mouth 4 (four) times a day as needed Active isosorbide mononitrate ER (Imdur) 30 MG 24 hr tablet Take 30 mg by mouth Daily Do not crush or chew. Active nitroglycerin (Nitrostat) 0.[address] 0.4 mg under the tongue every 5 (five) minutes if needed for chest pain Active Semaglutide (OZEMPIC, 2 MG/DOSE, SC) Inject 2 mg under the skin 1 (one) time per week Active rOPINIRole (Requip) 1 MG tabletIndications :RLS (restless legs syndrome) TAKE 1 TABLET IN THE EVENING 90 tablet 3 4 Active fremanezumab (Ajovy) 225 MG/1.5ML prefilled syringeIndication s:Chronic migraine without aura with status migrainosus, not intractable INJECT 225MG (1 SYRINGE) UNDER THE SKIN ONE TIME MONTHLY 1.5 mL 4 Active methocarbamol (Robaxin) 500 MG tablet Take 500 mg by mouth every 8 (eight) hours if needed 4 Active diazePAM (Valium) 5 MG tabletIndications :Hyper reflexia Take 1 tablet (5 mg) by mouth 1 time for 1 dose 30 minutes prior to MRI. 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 Active PSYLLIUM PO Take by mouth Acti ve Calcium Carb-Cholecalcife rol (OS-DEISY CALCIUM + D3 PO) Take 1 tablet by mouth Daily Active cholecalciferol (Vitamin D3) 25 MCG (1000 UT) tablet Take 2 tablets by mouth Daily Active DULoxetine (Cymbalta) [address] capsuleIndication s:Lumbar radiculopathy TAKE 1 CAPSULE IN THE MORNING AND 1 CAPSULE BEFORE BEDTIME 180 capsule 1 5 Active nortriptyline (Pamelor) 50 MG capsuleIndication s:Chronic migraine without aura without status migrainosus, not intractable TAKE 1 CAPSULE AT BEDTIME 90 capsule 1 5 Active fremanezumab (Ajovy) 225 MG/1.5ML auto-injectorIndi cations:Chronic migraine without aura with status migrainosus, not intractable Inject 1 pen (225 mg) under the skin every 30 (thirty) days INJECT 1.5ML (225MG) UNDER THE SKIN EVERY 30 DAYS. 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 Due 09/15/24. 270 capsule 1 5 Active testosterone cypionate (Depo-Testosteron e) 200 MG/ML injectionIndicati ons:Secondary male hypogonadism Inject 2 mL (400 mg) into the shoulder, thigh, or buttocks every 14 (fourteen) days 12 mL 1 5 025 Active Active Problems Problem Noted Date Diagnosed Date Paresthesia 10/29/2023 Carpal tunnel syndrome, bilateral upper limbs Intractable chronic migraine without aura and without status migrainosus 10/29/2023 Chronic migraine without aur a without status migrainosus, not intractable 10/29/2023 Median neuropathy 10/29/2023 Other sequelae of other cerebrovascular disease 10/29/2023 Carotid artery stenosis 10/29/2023 TIA (transient ischemic attack) 10/29/2023 Degenerative disc disease, lumbar 10/29/2023 Restless leg syndrome 10/29/2023 Post laminectomy syndrome 10/29/2023 Chronic migraine without aura 07/16/2018 Intractable migraine, unspecified migraine type 07/16/2018 Headache, migraine 07/16/2018 Chronic daily headache 05/19/2018 Stroke 05/19/2018 Obstructive sleep apnea 05/19/2018 Migraine 02/10/2018 Chronic headache 02/10/2018 Foraminal stenosis of cervical region 02/10/2018 Depressed 07/01/2017 Myalgia 07/01/2017 Degenerative disc disease, cervical 04/21/2017 Neck pain 04/21/2017 Insomnia 04/21/2017 Fibromyalgia 11/07/2014 Muscle spasm 11/07/2014 Insomnia, unspecified type 11/06/2014 Tension headache 10/05/2014 Brachial neuritis or radiculitis 09/07/2014 Carpal tunnel syndrome 08/15/2014 Common migraine 02/28/2014 Syndrome affecting cervical region 02/28/2014 Cervicalgia 01/20/2014 Disturbance of skin sensation 10/25/2013 Radiculopathy, lumbosacral region 10/25/2013 Headache 09/06/2013 Encounters Date Type Department Care Team Description 12/01/2024 Telephone [facility] [address] [place] [address] Rosey Dubose MD Medication Problem from Last 3 Months Immunizations Immunization Administration Dates Next Due Influenza, High Dose Seasona l, Preservative Free 02/28/2020,02/27/2019 Influenza, Recombinant, inje ctable, preservative free 04/11/2024 Influenza, Unspecified 01/27/2018,2015,12/07/2014,05/01,04/07/2013,09/12/2009 Influenza, injectable, MDCK, preservative free, quadrivalent 04/25/2021 Influenza, injectable, quadr ivalent, preservative free 05/01/2023,04/11/2022,03/25/2019,04/29,04/21/2017,01/27/2017,04/04/2015 Influenza, recombinant, quad rivalent, injectable, preservative free 10/07/2023,08/21/2023,04/12/2020 Influenza, seasonal, injectable 04/02/20 22,04/26/2018,02/28/2016,04/21,06/29/2011,03/28/2011 Influenza, seasonal, injecta ble, preservative free 04/16/2020 Pneumococcal Conjugate PCV 20 05/01/2023 Pneumococcal Polysaccharide PPSV23 12/08/2014 Tdap 10/24/2023,03/28/2011 Zoster, Recombinant 06/12/2020,04/12/2020 Family History Medical History Relation Name Comments Hypertension Father Hypertension Mother Cancer Other Diabetes Other Hypertension Other Seizures Other Stroke Other Relation Name Status Comments Brother x 1 Alive Father Alive Mother Alive Other Sibling Alive Sister x 1 Alive Son x 2 Alive x2 Social History Tobacco Use Types Packs/Day Years [...] Orientation Bisexual 10/24/2023 9: 51 PM EDT Last Filed Vital Signs Vital Sign Reading Time Taken Comments Blood Pressure 142/92 10/27/2024 10:15 AM EDT Pulse 87 10/27/2024 10:15 AM EDT Temperature - - Respiratory Rate 16 10/27/2024 10:15 AM EDT Oxygen Saturation 96% 10/27/2024 10:15 AM EDT Inhaled Oxygen Concentration - - Weight 125 kg (275 lb) 10/27/2024 10:15 AM EDT Height 176.5 cm (5' 9.5 ) 10/27/2024 10:15 AM ED T Body Mass Index 40.03 10/27/2024 10:15 AM EDT Plan of Treatment Upcoming Encounters Date Type Department Care Team (Late st Contact Info) Description 03/06/2025 9:20 AM EDT Office Visit [facility] [address] [place] [address] Rosey Dubose MD [address] [place] [address] 03/06/2025 10:30 AM EDT Office Visit [facility] [address] [place] [address] Abdi Mckeon PA [address] [place] [address] Health Maintenance Due Date Last Done Comments CT Colonography 1959 Colonoscopy 1959 Colorectal Cancer Screening 1959 FIT-DNA 1959 FIT 1959 FOBT 1959 Sigmoidoscopy 1959 Influenza Vaccine (#1) 2025 4, 10/07/2023, 08/21/2023, Additional history exists Pneumococcal Vaccine: 65+ Years Completed 3, 12/08/2014 Procedures Procedure Name Priority Date/Time Associated Diagnosis Comments TESTOSTERONE, TOTAL, MALES (ADULT), IA Routine 02/28/2025 4:32 PM EDT Secondary male hypogonadism PSA, TOTAL Routine 02/28/2025 4:32 PM EDT Secondary male hypogonadism HEMOGLOBIN Routine 02/28/2025 3:56 PM EDT Secondary male hypogonadism from Last 3 Months Results * Testosterone (02/28/2025 4:32 PM EDT) Blood Venous blood specimen / Unknown Rosey Dubose MD LAB BLOOD ORDERABLES Final Re sult Performing Organization Address [facility] Co de Phone Number [facility] * PSA (02/28/2025 4:32 PM EDT) Blood Venous blood specimen / Unknown Rosey Dubose MD LAB BLOOD ORDERABLES Final Re sult Performing Organization Address [facility]/ZIP Co de Phone Number [facility] * Hemoglobin (02/28/2025 3:56 PM EDT) Blood Venous blood specimen / Unknown Rosey Dubose MD LAB BLOOD ORDERABLES Final Re sult Performing Organization Address [facility] Co de Phone Number [facility] from Last 3 Months Insurance [employer] Care Teams Industrial Green Systems Designer Relationship Specialty Start Date End Date Socrates Valdovinos MD [address] [facility] [place] [phone] PCP - General Family Medicine 10/29/23 Kristi Blake PA [address] [place], [place] [id number] Physician Venue Manager Neurology 09/08/24
--- NOTE | 2025-03-01 11:25 | PM.CN ---
Consult Note: HPI Data of Consult Patient: known to practice within the last 3 years Requesting Physician: Justyna Martinez NP Primary Care Provider: JOSE RAY Consult Narrative Reason for consult: f/u Narrative: 64 year old male presents for evaluation and management of chronic low back pain. Pain today 7.5/10 increases to 10/10 with activity standing walking and lifting, improves with sitting. Patient finding mild to mild benefit from current medication regimen. Has completed sword PT at home greater than 6 weeks without improvement. continues to f/u with neurology and neurosurgery, pending additional lumbar surgery with Dr Banks. patient finding benefit to robaxin, lyrica, hydrocodone-acetaminophen, nortriptyline, duloxetine. cc:: CC: Justyna Martinez NP Review of Systems ROS Musculoskeletal Reports: back pain PFSH PFS Medical History Heartburn ?R12 - Heartburn (ICD-10) Low back pain ?M54.50 - Low back pain, unspecified (ICD-10) Numbness and tingling ?R20.0 - Anesthesia of skin (ICD-10) ?R20.2 - Paresthesia of skin (ICD-10) Anxiety ?F41.9 - Anxiety disorder, unspecified (ICD-10) Stroke ?I63.9 - Cerebral infarction, unspecified (ICD-10) Acid reflux ?K21.9 - Gastro-esophageal reflux disease without esophagitis (ICD-10) Enlarged prostate ?N40.0 - Benign prostatic hyperplasia without lower urinary tract symptoms (ICD-10) Kidney stone ?N20.0 - Calculus of kidney (ICD-10) Sleep apnea ?G47.30 - Sleep apnea, unspecified (ICD-10) High cholesterol ?E78.00 - Pure hypercholesterolemia, unspecified (ICD-10) Hypertension ?I10 - Essential (primary) hypertension (ICD-10) Surgical History S/P lumbar spine operation ?Z98.890 - Other specified postprocedural states (ICD-10) S/P shoulder replacement ?Z96.619 - Presence of unspecified artificial shoulder joint (ICD-10) S/P carpal tunnel release ?Z98.890 - Other specified postprocedural states (ICD-10) Hx of total knee arthroplasty ?Z96.659 - Presence of unspecified artificial knee joint (ICD-10) Meds Home Medications and Allergies Home Medications ?Medication ?Instructions ?Recorded ?Confirmed ?Type atorvastatin 80 mg tablet 80 mg PO QDAY 12/18/22 11/14/24 History biotin 1 mg capsule 1 mg PO DAILY 12/18/22 11/14/24 History clopidogrel 75 mg tablet 75 mg PO QDAY 12/18/22 11/14/24 History dicyclomine 20 mg tablet 20 mg PO QID PRN abdominal pain 12/18/22 11/14/24 History doxazosin 4 mg tablet 4 mg PO QDAY 12/18/22 11/14/24 History duloxetine 30 mg capsule,delayed 60 mg PO BID 12/18/22 11/14/24 History release (Cymbalta) finasteride 5 mg tablet 5 mg PO QDAY 12/18/22 11/14/24 History fluticasone propionate 50 1 spray intranasal QAM 12/18/22 11/14/24 History mcg/actuation nasal spray,suspension furosemide 40 mg tablet 40 mg PO QDAY 12/18/22 11/14/24 History metoprolol succinate 50 mg 50 mg PO QDAY 12/18/22 11/14/24 History tablet,extended release 24 hr multivitamin (Daily Multi-Vitamin 1 tab PO DAILY 12/18/22 11/14/24 History tablet) nortriptyline 50 mg capsule 50 mg PO QDAY 12/18/22 11/14/24 History omeprazole 40 mg capsule,delayed 40 mg PO QDAY 12/18/22 11/14/24 History release Held on 02/23/23. Instructions: pt preference potassium chloride 20 mEq 20 meq PO QDAY 12/18/22 11/14/24 History tablet,extended release(part/cryst) (Klor-Con M) pregabalin 200 mg capsule 200 mg PO TID 12/18/22 11/14/24 History promethazine 25 mg tablet 12.5 mg PO QDAY 12/18/22 11/14/24 History telmisartan 80 mg tablet (Micardis) 80 mg PO DAILY 12/18/22 11/14/24 History testosterone cypionate 200 mg/mL 200 mg IM Q14D 12/18/22 11/14/24 History intramuscular oil valacyclovir 500 mg tablet 500 mg PO Q12H PRN unknown 12/18/22 11/14/24 History voulzf-fngxmfke-njojbjw 18,000 cap PO 10/15/23 History 6,000-19,000-30,000 unit capsule,delayed rel (Creon) semaglutide 0.25 mg or 0.5 mg (2 0.25 mg subcut QWEEK 10/15/23 11/14/24 History mg/3 mL) subcutaneous pen injector (Ozempic) methocarbamol 500 mg tablet See Rx Instructions .Route 03/29/24 11/14/24 Rx .COMPLEX #180 tabs hydrocodone 5 mg-acetaminophen 325 1 tab PO TID PRN pain #90 tabs 08/30/24 11/14/24 Rx mg tablet methocarbamol 1,000 mg tablet 1,000 mg PO TID #90 tabs 10/27/24 11/14/24 Rx fremanezumab-vfrm 225 mg/1.5 mL mg subcut 11/14/24 History subcutaneous auto-injector (Ajovy) hydrocodone 7.5 mg-acetaminophen 1 tab PO TID PRN pain #90 tabs 12/01/24 Rx 325 mg tablet hydrocodone 7.5 mg-acetaminophen 1 tab PO TID PRN pain #90 tabs 12/28/24 Rx 325 mg tablet methocarbamol 500 mg tablet See Rx Instructions .Route 12/28/24 Rx .COMPLEX PRN spasms #180 tabs hydrocodone 7.5 mg-acetaminophen 1 tab PO TID PRN pain #90 tabs 01/30/25 Rx 325 mg tablet hydrocodone 7.5 mg-acetaminophen 1 tab PO TID PRN pain #90 tabs 02/23/25 Rx 325 mg tablet Allergies Allergy/AdvReac Type Severity Reaction Status Date / Time Penicillins Allergy Intermediate Swelling Verified 11/14/24 08:37 of Lip/Tongue/Throat latex Allergy Mild ITCHING Verified 11/14/24 08:37 Exam Constitutional Documenting provider has reviewed patient's vital signs: yes Common normals: no apparent distress, oriented x3, healthy appearing, alert and well nourished General appearance: cooperative Other: significant hyperalgesia to lumbar spine HENMT Common normals: normocephalic, hearing grossly normal bilaterally and moist oral mucous membranes Head and scalp: normocephalic Eye Common normals: PERRL Pupil: PERRL Neck & C-Spine Common normals: full ROM General: normal visual inspection Chest Common normals: inspection of chest normal Respiratory Common normals: normal respiratory effort, no retractions and no use of accessory muscles Back & Pelvis Lumbar spine/lower back: ROM limited and pain with ROM Sacroiliac joints: SI joints normal Other: decreased sensation to left L4,5,S1 left sij negative leodan(patricks), gaenslens, thigh thrust, compression test strength 4/5 in LLE Extremity Common normals: normal to inspection and full ROM Neuro Common normals: oriented x3 Sensorium/orientation: alert Psych Common normals: mental status grossly normal, thought process normal, cooperative, affect normal, speech normal and activity/motor behavior normal Speech: normal speech Thought process: normal thought process Results Additional Findings Additional findings: If on a controlled substance or opioids, I have checked an [place] report on this patient and there are no aberrancies noted in the prescribing history.??If on a controlled substance or opioid a drug screen was completed and reviewed within the last year, and if there has not been a drug screen completed we ordered one today to monitor higher risk, state monitored pain medication use. As part of providing excellent, safe, comprehensive care, the following was completed at our patient's visit: 1. A medication reconciliation and review to ensure accurate knowledge of current/active medications, including asking our patients to inform us about any bqkg-dcp-rqtyumj medications or herbal remedies/nutritional supplements/alternative remedies. 2. A review to specifically ensure our patients have had annual screening for screening for depression, screening for tobacco use, and screening for unhealthy alcohol use. For concerning screenings had a discussion with the patient, provided patient education, and recommended follow-up with primary care provider when appropriate. If patient noted with a risk of falling, they received education on strength, gait, and balance training to prevent future risk of falling. Portions of this note may have been carried over from the previous visit and updated as appropriate. Please note this office utilizes paper charting in addition to the electronic medical record. A list of current medications, vitals, and PMH is available there as the clinical staff outside of myself do not have access to in[employer]apps charting during the clinic day operations. As part of providing quality comprehensive care the current medications, vitals, and PMH were reviewed in the paper chart. Assessment and Plan Assessment and Plan (1) Lumbar radiculopathy: (2) Sacroiliitis: (3) Failed back syndrome: (4) Myalgia, other site: (5) Encounter for long-term use of opiate analgesic: Assessment and Plan: I feel these medications are improving the patient's quality of life and allow them to tolerate activities of daily living as well as participate in recreational activity.? The patient does not report intolerable side effects. The patient is NOT opioid naive and non-pharmacologic and non-opioid treatment has failed to significantly relieve the patient's pain and improve functionality. The patient has a diagnosis that is related to a somatic or visceral pain etiology. ? ?? I reviewed with the patient the potential risks and side effects with the use of? opioid medications including but not limited to respiratory depression,? sedation, and even . Within the last 12 months I have verified the patient has access to naloxone should? these effects occur. The patient was advised to let? their family know they had Naloxone in case they would need to administer? the medication. I advised the patient to avoid the use of any other? sedation substances including alcohol, THC, and benzodiazepines while? taking opioid medications due to the risk of compounding side effects and? detrimental outcomes. within the last 12 months I have reviewed the [employer], pain treatment agreement and urine drug screen.? ?? A drug screen was completed within the last year, and no aberrancies were noted regarding their use of controlled substances. The patient understands they are subject to the terms and conditions of the pain contract that they have signed. ? ?? I have checked an [place] report on this patient today and there are no aberrancies noted in the prescribing history.? notes moderate relief for 4-5 hours after each dose with improvement in ability to tolerate ADLs, bathing, housework (6) Myofascial pain: (7) Chronic, continuous use of opioids: (8) Lumbar spondylosis: Plan left L4-5 L5-S1 TFESI for lumbar radiculopathy not completed since last visit, defer rescheduling due to upcoming additional surgery. pt to call our office once his surgery is scheduled, i did review with him today he is to stop norco through our office if prescribed post op pain medication by NS team. pt to f/u with them until cleared, then can resume medications through our office continue robaxin 500-1000mg TID PRN pain/spasms continue hydrocodone-acetaminophen 7.5-325mg TID PRN moderate to severe pain continue HEP as tolerated f/u 3 months, sooner if needed
--- OUTSIDE RECORDS SUMMARY | 2025-03-01 13:49 | XMS_ITS | CCD ---
Author Organization [facility] Care Team Providers Care Director Human Services Name Role Phone JOSE VALDOVINOS Primary Care Physician Ariana Lutz Unavailable Unavailable Jose Valdovinos Primary Care Provider Jose Valdovinos Unavailable Jose Valdovinos Primary Care Provider [phone] Jose Valdovinos Unavailable Unavailable Unavailable Graham, Fernanda Unavailable ObDO Jose contreras Primary Care Provider [phone] MD Yobany Nelson Attending Provider [phone] NO FAMILY, PHYSICIAN Primary Care Provider Unava MANISH Meza Attending Provider [phone] Graham, GROUNDS PERSON Fernanda Other Provider ObDO Jose contreras Other Provider MD Loyda Steele Attending Provider MD Rosey Dubose Other Provider Jose Valdovinos Primary Care Provider DO Jose Valdovinos Primary Care Provider CYNDY STEELEAITH Admitting Unavailable LOYDA STEELE Attending Unavailable JOSE VALDOVINOS Primary Care Unavailable MD DILLON, ELSY Consulting Unavaila ble JOSE VALDOVINOS Primary Care Unavailable HABFERNANDA LOYDA Admitting Unavailable LOYDA STEELE Attending Unavailable JOSE VALDOVINOS Primary Care Unavailable KUMAR MOCK Consulting Unavailable Xavi Smith Unavailable Graham, GROUNDS PERSON Fernanda Other Provider Oberer, DO Jose Primary Care Provider Oberer, DO Jose Other Provider MD Loyda Steele Attending Provider MD Rosey Dubose Other Provider MANISH Beltarn Attending Provider MANISH Jameson Emergency Provider [phone] MD Cathy Zavala Admit Provider MD Cathy Zavala Attending Provider Fabiola Montemayor Other Provider Unavailable DO Christine Bryson Other Provider MD Se Rodriges Other Provider [phone] DO Cornel Carson Other Provider [phone] Eduardo ANP- Marci Other Provider DO Ortega Haskins Other Provider ANITA Huerta Other Provider MD Xavi Smith Other Provider DO Ortega Haskins Attending Provider Eddi Raquel Unavailable Oberer, Jose Paras Primary Care Provider [phone] Oberer, DO Jose Primary Care Provider DO Rafael Zheng Attending Provider MD Loyda Steele Attending Provider [phone] MD Loyda Steele Other Provider Oberer, Jose Paras Primary Care Unavailable Andrzej, Dr. Gonzalez Attending Unavaila ble Dr. Danisha Bran Referring Unavaila ble Oberer, Jose Paras Primary Care Unavailable Obgustabor, Jose Paras Primary Care Unavailable Dr. Danisha Bran Attending Unavaila ble Oberer, DO Jose Primary Care Provider Oberer, DO Jose Attending Provider Alise Renteria Unavailable Oberer, DO Jose Primary Care Provider [phone] Norm DO Rafael Kwong Attending Provider [phone] Oberer, DO Jose Attending Provider JordonDO Alejandro A Emergency Provider Yusef Rafael Unavailable Oberer, DO Jose Primary Care Provider Olvin Andino Unavailable MD Se Rodriges Referring Provider OBDIANE, DR GARCIA Primary Care Unavailable TJ ., DR YANELIS Pierce Attending Unavailable SPENCER ., DR YANELIS Pierce Admitting Unavailable ROSEMARIE .MARY Consulting Unavailable OBEREMegan, DR GARCIA Primary Care Unavailable LAKSHMIPATHY ., NARENDRANATH Attending Maddi vailable LAKSHMIPATHY ., NARENDRANATH Consulting Maddi vailable LAKSHMIPATHY ., NARENDRANATH Admitting Maddi vailable DR SE STILL Consulting Unavailable OBDIANE, DR GARCIA Primary Care Unavailable LAKSHMIPATHY ., NARENDRANATH Attending Maddi vailable LAKSHMIPATHY ., NARENDRANATH Admitting Maddi vailable LAKSHMIPATHY ., NARENDRANATH Consulting Maddi vailable OBDR JOSE CONTRERAS Primary Care Unavailable LAKSHMIPATHY ., NARENDRANATH Attending Maddi vailable LAKSHMIPATHY ., NARENDRANATH Consulting Maddi vailable LAKSHMIPATHY ., NARENDRANATH Admitting Maddi vailable OBDR JOSE CONTRERAS Primary Care Unavailable LAKSHMIPATHY ., NARENDRANATH Attending Maddi vailable LAKSHMIPATHY ., NARENDRANATH Consulting Maddi vailable LAKSHMIPATHY ., WILLIAMSENDRANATH Admitting Maddi vailable BONIFACIO, DR GARCIA Primary Care Unavailable TJ ., DR YANELIS Pierce Attending Unavailable SPENCER ., DR YANELIS Pierce Consulting Unavailable SPENCER ., DR YANELIS S Admitting Unavailable Oberer, DO Jose Primary Care Provider Oberer, DO Jose Attending Provider [phone] DO Olvin Andino Attending Provider MD Rafael Holbrook Attending Provider Oberer, DO Jose Primary Care Provider Oberer, DO Jose Attending Provider [phone] ROSARIO Graham Attending Provider MD Rosey Dubose Attending Provider John Soto Unavailable Oberer, DO Jose Primary Care Provider Oberer, DO Jose Attending Provider MD John Soto Attending Provider [phone] Oberer, DO Jose Primary Care Provider Oberer, DO Jose Attending Provider Oberer DO, Jose Paras Primary Care Provider Oberer, DO Jose Primary Care Provider MD John Soto Attending Provider Oberer, DO Jose Attending Provider SILVIO Posey Attending Provider Oberer DO, Jose Paras Primary Care Provider Oberer, DO Jose Primary Care Provider [phone] MD John Soto Attending Provider Oberer, DO Jose Attending Provider Oberer, DO Jose Primary Care Provider SILVIO Posey Attending Provider Oberer, DO Jose Primary Care Provider SILVIO Martinez Attending Provider [phone] Oberer, DO Jose Primary Care Provider [phone] Oberer, DO Jose Attending Provider OBERER, JOSE Admitting Unavailable JUSTYNA MARTINEZ Referring Unavailable OBERER, JOSE Attending Unavailable JUSTYNA MARTINEZ Referring Unavailable JUSTYNA MARTINEZ Attending Unavailable JUSTYNA MARTINEZ Admitting Unavailable Oberer, DO Jose Primary Care Provider [phone] Oberer, DO Jose Attending Provider MD Jhonny Kaminski Attending Provider Oberer DO, Jose Paras Primary Care Provider Jose Valdovinos MD Primary Care Provider [phone] Oberer, DO Jose Primary Care Provider MD Jhonny Kaminski Attending Provider Oberer, DO Jose Attending Provider Oberer DO, Jose Primary Care Provider Jhonny Kaminski MD Attending Provider Oberer DO, Jose Attending Provider Oberer DO, Jose L Primary Care Provider Oberer DO, Jose Primary Care Provider Se Rodriges MD Unavailable [phone] Oberer DO, Jose Primary Care Provider Rosey Dubose MD Attending Provider Kristi Strickland Unavailable Oberer DO, Jose Attending Provider [phone] Jose Valdovinos MD Primary Care Provider Jose Valdovinos MD Primary Care Provider [phone] KG CARSON Attending Unavailable ROSEY DUBOSE Attending Unavailable ROSEY DUBOSE Referring Unavailable EWA RODRIGUEZ Attending Unavailable EWA RODRIGUEZ Referring Unavailable SE RODRIGES Attending Unavailable KRISTI BLAKE Referring Unavailable EWA RODRIGUEZ Attending Unavailable BENEDICT, SE Attending Unavailable KG CARSON Attending Unavailable Chapito MACIAS, Steven Colon Attending Unavailable OBERER, JOSE Referring Unavailable Gilmar EDUARDO Attending Unavailable Bruner, Se Admitting Unavailable Bruner, Se Attending Unavailable Bruner, Se Referring Unavailable OBERER, JOSE Admitting Unavailable OBERER, JOSE Attending Unavailable CATALINA, JUSTYNA Referring Unavailable Oberer DO, Jose L Primary Care Provider DANISHA BRAN Attending Unavailable TRABOULVAL SAUCEDOF Referring Unavailable OBERER, JOSE L Primary Care Unavailable DANISHA BRAN Attending Unavailable TRABOULSHERYL, MODGF Referring Unavailable OBERER, JOSE L Primary Care Unavailable Oberer DO, Jose Primary Care Provider Santos GROUNDS PERSON, Fernanda Attending Provider [phone] Oberer DO, Jose Attending Provider [phone] Tino Merritt GROUNDS PERSON-C, Palak Alvarez Attending Provid er Rafael Holbrook MD Attending Provider Danisha Bran MD Attending Provider OBERER, JOSE PARAS Primary Care Unavailable HABBOUB, LOYDA Referring Unavailable OBERER, JOSE PARAS Primary Care Unavailable HABBOUB, LOYDA Referring Unavailable OBERER, JOSE PARAS Primary Care Unavailable OBERER, JOSE PARAS Primary Care Unavailable GUILLAUME BHANDARI G Referring Unavailable GUILLAUME BHANDARI G Attending Unavailable GUILLAUME BHANDARI G Admitting Unavailable HABBOUB, LOYDA Attending Unavailable HABBOUB, LOYDA Referring Unavailable OBERER, JOSE PARAS Primary Care Unavailable HABBOUB, LOYDA Attending Unavailable HABBOUB, LOYDA Referring Unavailable OBERER, JOSE PARAS Primary Care Unavailable HABBOUB, LOYDA Attending Unavailable OBERER, JOSE PARAS Referring Unavailable OBERER, JOSE PARAS Primary Care Unavailable Oberer DO, Jose Primary Care Provider [phone] Oberer DO, Jose Attending Provider Rosey Dubose MD Attending Provider Rosey Dubose Attending Unavailable Sedrick, Ahmanadeem Admitting Unavailable Oberer, Jose Primary Care Unavailable Oberer, Jose Admitting Unavailable Oberer, Jose Attending Unavailable Oberer, Jose Primary Care Unavailable Chalo Linares Attending Unavailable Chalo Linares Admitting Unavailable Rafael Holbrook Referring Unavailable Oberer, Jose Primary Care Unavailable Oberer, Jose Admitting Unavailable Oberer, Jose Attending Unavailable Oberer, Jose Primary Care Unavailable Sedrick, Rosey Attending Unavailable Sedrick, Ahnani Admitting Unavailable Oberer, Jose Primary Care Unavailable Oberer, Jose Admitting Unavailable Oberer, Jose Attending Unavailable Oberer, Jose Primary Care Unavailable Palak Decker Admitting Unava ilable Palak Decker Attending Unava ilable Oberer, Jose Primary Care Unavailable Traboulssi, Mourhaf Attending Unavailable Traboulssi, Mourhaf Admitting Unavailable Oberer, Jose Primary Care Unavailable Traboulssi, Mourhaf Attending Unavailable Traboulssi, Mourhaf Admitting Unavailable Oberer, Jose Primary Care Unavailable Allergies Allergy Classification Reported Allergen(s) Allergy Type Date of Onset Reaction(s) Facility (20 sources) Latex; Translations: [Latex] Drug allergy 7 Rash, Unknown, Hives [facility] Other Comment on above: This patient is not Allergic to Albuterol. (20 sources) Penicillins; Translations: [penicillins] Drug allergy 4 Pharyngeal swelling (finding), Anaphylaxis, Swelling [facility] (20 sources) busPIRone Drug Allergy headache [facility] Other (20 sources) Penicillin Drug Allergy throat swelled [facility] Other (20 sources) busPIRone; Translations: [buspirone] Drug Allergy 4 Headache [facility] Medications Current Medications Medication Drug Class(es) Dates [...] weekly for 30 days Patient assistance. Active acetaminophen 325 mg / HYDROcodone bitartrate 7.5 mg oral tablet (20 sources) Opioid Agonist Start: 01-31-2025 take 1 tablet by mouth three times daily Start: 09-28-2024 End: 01-31-2025 take 1 tablet by mouth three times daily Hydrocodone-Acetaminophen 5-325 mg table t Discontinued TAB PO Three times daily September 28, 2024 12:00am January 31, 2025 9:47am Start: 09-28-2024 take 1 tablet by michelle th three times daily Hydrocodone-Acetaminophen 5-325 mg table t Active TAB PO Three times daily September 28, 2024 12:00am Start: 05-06-2024 End: 09-28-2024 take 1 tablet by mouth three times daily Hydrocodone-Acetaminophen 7.5-325 mg tablet Discontinued TAB PO Three times daily May 06, 2024 1:00am September 28, 2024 2:54pm Start: 10-30-2023 End: 05-06-2024 take 1 tablet by mouth three times daily Hydrocodone-Acetaminophen 5-325 mg table t Discontinued 1 TAB PO Three times daily October 30, 2023 12:00am May 06, 2024 9:42am [employer] Tablet Orally tid; Note: Source Status: Taking; Provider: Dr Martinez Start: 05-06-2022 End: 06-02-2022 take 1 tablet by mouth every six hours as needed for pain Hydrocodone-Acetaminophen 5-325 mg Table t Discontinued 1 TAB PO Every 6 hours as needed for Pain 12 May 06, 2022 June 02, 2022 9:51am Start: 03-13-2022 End: 03-28-2022 take 1 tablet [...] 38 tablet 0 12/04/2021 Active Start: 09-23-2021 [place] 325 mg-5 mg oral tablet 1 tab(s), Oral, q4hr pain, 30 tab(s), Refill(s) 0 Start Date: 09/23/21 Status: Ordered Quantity: 30.0 Unit: tab(s) Repeat number: 1 Start: 09-22-2021 take 1 tablet by michelle th every six hours as needed HYDROcodone-acetaminophen (NORCO) 5-325 mg per tablet Indications: Post-op pain , S/P lumbar fusion Take 1 tablet by mouth every 6 hours as needed. 30 tablet 0 09/22/2021 Active Start: 04-21-2017 End: 09-04-2021 HYDROcodone-acetaminophen (N ORCO) 5-325 mg per tablet three times daily. 04/21/2017 09/04/2021 Discontinued Start: 03-30-2017 End: 05-03-2022 take 1 tablet by mouth twice daily Hydrocodone-Acetaminophen 5-325 mg table t Discontinued 1 TAB PO Twice daily March 30, 2017 12:00am May 03, 2022 3:14pm End: 08-07-2021 take 1 tablet by mouth every eight hours as needed HYDROcodone-Acetaminophen (NORCO) 7.5-32 5 mg per tablet Take 1 tablet by mouth every 8 hours as needed for pain. 0 Active HYDROcodone-acet aminophen ([place]) 5-325 MG tablet 1 tablet Active take 1 tablet by michelle th in the morning, then take 1 tablet by mouth in the evening, then take 1 tablet by mouth at bedtime HYDROcodone-acetaminophen ([place]) 7.5-32 5 MG tablet Take 1 tablet by mouth in the morning and 1 tablet in the evening and 1 tablet before bedtime. Active take 1 tablet by michelle th three times daily as needed take 1 tablet by michelle th three times daily as needed [place] 5-325 MG 1 tablet as needed Orally [...] for pain for up to 14 days. Ajovy 225 mg/1.5 mL subcutaneous solution (5 sources) Start: 04-26-20 inject 250 mg by subcutaneous injection every month Ajovy 225 mg/1.5 mL subcutaneous solution 250 mg, SubCutaneous, qMonth, Refills(s) 0, Migraine headache Start Date: 04/26/19 Status: Ordered Ajovy Autoinjector (1 source) Start: 12-06-19 inject 1 mg by subcutaneous injection every month Ajovy Autoinjector mg, SubCutaneous, qMonth, Refills(s) 0 Start Date: 12/05/24 Status: Ordered Repeat number: 1 Ajovy Autoinjector 225 mg/1.5 mL subcutaneous solution (1 source) Start: 11-21-19 inject 225 mg by subcutaneous injection every month Ajovy Autoinjector 225 mg/1.5 mL subcutaneous solution 225 mg, SubCutaneous, qMonth, Refills(s) 0 Start Date: 11/20/21 Status: Ordered [id number] 200 actuat albuterol 0.09 mg/actuat metered dose inhaler (12 sources) beta2-Adrenergic Agonist albuterol (Ventolin HFA) 90 mcg/actuation inhaler Use as directed Active Ventolin 90 MCG/ ACT AERS USE DIRECTED. Quantity: 0 Refills: 0 Ordered: 24-Oct-2022 DO Active take 1 puff(s) by in halation every four hours as needed Ventolin HFA 108 (90 Base) MCG/ACT 1 puf f as needed Inhalation every 4 hrs Active Creon (20 sources) Start: 12-05-2024 Creon Oral, TI D Start Date: 12/05/24 Status: Ordered Repeat number: 1 Start: 10-30-2023 take [id number] ca psules by mouth four times daily at mealtime take 1 capsule by mouth once [place] ly pancrelipase, Kmd-Elic-Tgur, (Creon) 36,000-114,000- 180,000 unit capsule,delayed release(DR/EC) capsule Take 1 capsule by mouth once daily. Active ascorbic acid 500 mg chewable tablet (20 sources) Vitamin C End: 11-27-2021 take 1 tablet by mouth once daily ascorbic acid (Vitamin C) 500 MG tablet Take 1 tablet by mouth Daily Active Vitamin C Active Comment on above: Take 500 mg by mouth once daily. ascorbic acid 125 mg / collagen, hydrolyzed 740 mg oral capsule (20 sources) Vitamin C Start: 10-30-2023 take 2 capsules by mouth twice daily Start: 10-30-2023 Ascorbic Acid- Collagen (Collagen Plus Vitamin C) 125-740 mg capsule Active CAP PO October 30, 2023 12:00am b complex 0.4 mg tablet (3 sources) take 1 tablet by michelle th once daily b complex 0.4 mg tablet Take 1 tablet by mouth once daily. Active b complex 0.4 mg tablet As directed 0 Active biotin 5 mg sublingual table t (20 sources) Start: 10-30-2023 take 1 tablet by mouth once da jed Start: 10-30-2023 take 1 tablet by michelle th once daily Biotin 5000 MCG sublingual tablet Take 1 tablet by mouth Daily 10/30/2023 Active Start: 03-30-2017 End: 10-30-2023 take 1 tablet by mouth once daily at bedtime Biotin 10,000 mcg Capsule Discontinued 1 TAB PO Daily at bedtime March 30, 2017 12:00am October 30, 2023 8:40am Start: 01-25-2016 take 1 tablet by michelle th at bedtime biotin [id number] tabs, Oral, Bedtime, Refills(s) 0, Migraine headache Start Date: 01/25/16 Status: Ordered End: 11-27-2021 take 10 ug by mouth once daily at bedtime BIOTIN ORAL Take 10 mcg by mouth daily at bedtime. 11/27/2021 Discontinued take 1 tablet by michelle th every twenty-four hours Biotin 5000 MCG 1 tablet Orally Once a day Active take 1 tablet by michelle th every twenty-four hours take 1 tablet by michelle th once daily Biotin Maximum Strength 40934 MCG Oral Tablet TAKE 1 TABLET DAILY. Quantity: 0 Refills: 0 Ordered: 16-Jul-2022 DO Active take 10 ug by mouth once daily at bedtime BIOTIN ORAL Take 10 mcg by mouth daily at bedtime. 0 Active Comment on above: Take 10 mcg by mouth daily at bedtime. bisacodyl 5 mg delayed release oral tablet (20 sources) Stimulant Laxative Start: 08-20-19 take 2 tablets by mouth once daily as needed for constipation bisacodyl 5 mg Oral EC Tab 10 mg = 2 tab(s), Oral, Daily, PRN for constipation, # 20 tab(s), Refills(s) 0 Start Date: 09/24/21 Status: Ordered Quantity: 20.0 Unit: tab(s) Repeat number: 1 Comment on above: Take 2 tablets by mo [facility] once daily as needed. calcitonin 200 intl units/inh Nasal [place] (1 source) Start: 08-11-19 take 1 spray(s) by inhalation once daily calcitonin 200 intl units/inh Nasal [place] = 1 spray(s), Nasal, Daily, Refills(s) 0, Prophylaxis Start Date: 08/11/17 Status: Ordered Calcium (8 sources) Phosphate Binder, Calcium Calcium + D3 Active Calcium Carb-Cholecalciferol (OS-DEISY CALCIUM + D3 PO) (10 sources) take 1 tablet by mouth once daily Calcium Carb-Cholecalcifer ol (OS-DEISY CALCIUM + D3 PO) Take 1 tablet by mouth Daily Active calcium carbonate 1500 mg / cholecalciferol 0.01 mg oral tablet (7 sources) Vitamin D Start: 08-11-19 take 1 tablet by mouth once daily calcium-vitamin D 600 mg-400 intl units oral tablet 1 tab(s), Oral, Daily, Refill(s) 0, Prophylaxis Start Date: 08/11/17 Status: Ordered Start: 08-11-2017 take 1 tablet by michelle th once daily calcium-vitamin D 600 mg-400 intl units oral tablet 1 tab(s), Oral, Daily, Refill(s) 0, Prophylaxis Start Date: 08/11/17 Status: Ordered Calcium Carbonate / vitamin D3 (20 sources) take 1 tablet by michelle th once daily CALCIUM CARBONATE/VITAMIN D3 (CALCIUM 600 + D ORAL) Take 1 tablet by mouth once daily. Active take 1 tablet by mouth once [place] CALCIUM CARBONATE/VITAMIN D3 (CALCIUM 600 + D ORAL) Take 1 tablet by mouth once daily. 0 Suspended take 1 tablet by mouth once [place] CALCIUM CARBONATE/VITAMIN D3 (CALCIUM 600 + D ORAL) Take 1 tablet by mouth once daily. 0 Active Comment on above: Take 1 tablet by michelle th once daily. calcium-vitamin D 600 mg-400 intl units oral tablet (8 sources) Start: 08-11-2017 take 1 tablet by mouth once daily calcium-vitamin D 600 mg-400 intl units oral tablet 1 tab(s), Oral, Daily, Refill(s) 0, Prophylaxis Start Date: 08/11/17 Status: Ordered Repeat number: 1 Start: 08-11-2017 take 1 tablet by michelle th once daily calcium-vitamin D 600 mg-400 intl units oral tablet 1 tab(s), Oral, Daily, Refill(s) 0, Prophylaxis Start Date: 08/11/17 Status: Ordered cbd- hemp oil (1 source) Start: 04-26-2019 take 2 tablets by mouth once daily cbd- hemp oil cbd- hemp oil, 2 tab(s), Oral, Daily Start Date: 04/26/19 Status: Ordered cholecalciferol 0.125 mg oral capsule (20 sources) Vitamin D Start: 09-24-2021 take 1 capsule by mouth once daily at mealtime cholecalciferol 5000 intl units oral capsule 125 mcg = 1 cap(s), Oral, Daily, with food, # 100 cap(s), Refills(s) 0 Start Date: 09/24/21 Status: Ordered Quantity: 100.0 Unit: cap(s) Repeat number: 1 Start: 09-24-2021 take 1 capsule by mo [facility] once daily at mealtime cholecalciferol 5000 intl units oral capsule 125 mcg = 1 cap(s), Oral, Daily, with food, # 100 cap(s), Refills(s) 0 Start Date: 09/24/21 Status: Ordered Start: 09-24-2021 take 1 capsule by [facility] once daily at mealtime cholecalciferol 5000 intl units oral capsule 125 mcg = 1 cap(s), Oral, Daily, with food, # 100 cap(s), Refills(s) 0 Start Date: 09/24/21 Status: Ordered take 2 tablets by [facility] once daily cholecalciferol (Vitamin D3) 25 MCG (1000 UT) tablet Take 2 tablets by mouth Daily Active End: 08-07-2021 take 1 capsule by mouth once daily Cholecalciferol, Vitamin D3, 1,000 unit cap Take 1,000 Units by mouth once daily. 08/07/2021 Discontinued (Course of therapy completed) cholecalciferol, vitamin D3, (D3-50 CHOLECALCIFEROL ORAL) (3 sources) take 1 tablet by mouth once daily cholecalciferol, vitamin D3, (D3-50 CHOLECALCIFEROL ORAL) Take 1 tablet by mouth once daily. Active cholecalciferol, vitamin D3, (D3-50 CHOLECALCIFEROL ORAL) chromium picolin,hist/minera ls (CHROMIUM PICOLINAT,HISTID-MINS ORAL) (2 sources) End: 07-22-2024 chromium picolin,hist/minera ls (CHROMIUM PICOLINAT,HISTID-MINS ORAL) 800 mcg take as directed 07/22/2024 Discontinued (Therapy completed) chromium picolin ,hist/minerals (CHROMIUM PICOLINAT,HISTID-MINS ORAL) 800 mcg take as directed 0 Active chromium picolinate 0.8 mg oral tablet (20 sources) Start: 09-24-2021 take 1 tablet by mouth once daily chromium picolinate 800 mcg oral tablet 800 mcg = 1 tab(s), Oral, Daily, Refills(s) 0 Start Date: 09/24/21 Status: Ordered take 800 ug by mouth once daily CHROMIUM PICOLINATE ORAL Take 800 mcg by mouth once daily. Active Chromium Picolin ate 800 MCG Oral Tablet TAKE DIRECTED. Quantity: 0 Refills: 0 Ordered: 24-Oct-2022 DO Active take 800 ug by mouth once daily CHROMIUM PICOLINATE ORAL Take 800 mcg by mouth once daily. 0 Suspended take 800 ug by mouth once daily CHROMIUM PICOLINATE ORAL Take 800 mcg by mouth once daily. 0 Active Comment on above: Take 800 mcg by mout once daily. clopidogrel 75 mg oral tablet (20 sources) [id number] Platelet Inhibitor Start: 10-31-2024 take 1 tablet by mouth once daily Start: 04-25-2024 End: 10-31-2024 Clopidogrel 75 mg tablet Discontinued 0 .ROUTE .[facility] July 28, 2024 2:19pm October 20, 2024 8:28am TAKE 1 TABLET DAILY Start: 10-29-2023 End: 12-10-2023 Clopidogrel 75 mg tablet Discontinued 0 .ROUTE .[facility] October 29, 2023 9:51am December 10, 2023 1:38pm TAKE 1 TABLET DAILY Start: 10-29-2023 End: 12-10-2023 Clopidogrel 75 mg tablet Discontinued 0 .ROUTE .[facility] October 29, 2023 9:51am December 10, 2023 1:38pm TAKE 1 TABLET DAILY Start: 10-29-2023 End: 12-10-2023 Clopidogrel 75 mg tablet Discontinued 0 .ROUTE .[facility] October 29, 2023 8:51am December 10, 2023 12:38pm TAKE 1 TABLET DAILY Start: 10-29-2023 End: 12-10-2023 Clopidogrel Discontinued 0 . ROUTE .[facility] October 29, 2023 8:51am December 10, 2023 12:38pm TAKE 1 TABLET DAILY Start: 10-29-2023 End: 12-10-2023 Clopidogrel Discontinued 0 . ROUTE .[facility] October 29, 2023 9:51am December 10, 2023 1:38pm TAKE 1 TABLET DAILY Start: 10-29-2023 Clopidogrel Ac tive 0 .ROUTE .[facility] October 29, 2023 9:51am TAKE 1 TABLET DAILY Start: 12-12-2014 End: 04-25-2024 take 1 tablet by mouth once daily Clopidogrel 75 mg tablet Discontinued 75 MG PO Daily December 10, 2023 1:30pm April 25, 2024 3:57pm Comment on above: Take 75 mg by mouth once daily. Take 1 tablet by michelle th once daily. Please hold this medication until post op day 10 CoQ-10 50 MG (3 sources) take 1 capsule by mouth once daily CoQ-10 50 MG 1 capsule with a meal Orally Once a day Active DHEA 50 mg oral capsule (8 sources) Start: 2 take 1 tablet by mouth once daily DHEA 50 mg oral capsule = 1 tab(s), Oral, Daily, Refills(s) 0 Start Date: 09/24/21 Status: Ordered diazePAM 5 mg oral tablet (13 sources) Benzodiazepine Start: 4 End: 4 diazePAM (Valium) 5 MG tablet Indications: Hyper reflexia Take 1 tablet (5 mg) by mouth 1 time for 1 dose 30 minutes prior to MRI. 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 06/06/2024 Active Diclofenac (20 sources) Nonsteroidal Anti-inflammatory Drug Start: 5 diclofenac Oral, Refills(s) 0 Start Date: 12/05/24 Status: Ordered Repeat number: 1 Start: 07-14-2018 End: 09-11-2021 apply 2 g topically four times daily Diclofenac Sodium (Voltaren) 1 % Gel Discontinued 2 GM TOPICAL Four times daily July 14, 2018 1:00am September 11, 2021 5:00pm Start: 08-11-2017 diclofenac 2% topical solution 1 beau, Topical, TID, Refill(s) 0, Inflammation Start Date: 08/11/17 Status: Ordered Start: 03-30-2017 End: 09-11-2021 Diclofenac Sodium 1 % Gel Discontinued 1 APPLIC TOPICAL 2-4 TIMES DAILY as needed for Itching March 30, 2017 12:00am September 11, 2021 5:00pm End: 09-22-2021 diclofenac sodium (VOLTAREN) 1 % topical gel Apply to affected area three times daily. 09/22/2021 Discontinued diphenhydrAMINE hydrochloride 25 mg oral capsule (10 sources) Histamine-1 Receptor Antagonist Start: 11-20-2021 take 1 capsule by mouth every six hours as needed Diphenhist 25 mg oral capsule 25 mg = 1 cap(s), Oral, q6hr, PRN as needed for itching, # 30 cap(s), Refills(s) 0 Start Date: 11/20/21 Status: Ordered Quantity: 30.0 Unit: cap(s) Repeat number: 1 docosahexaenoic acid/epa (FISH OIL ORAL) (20 sources) take 5 capsules by mouth once daily docosahexaenoic acid/epa (FISH OIL ORAL) Take 5 capsules by mouth once daily. Active take 5 capsules by mouth once da [...] 100 mg oral capsule (20 sources) Start: 08-20-2021 take 1 capsule by mouth twice daily docusate sodium (COLACE) 100 mg capsule Take 1 capsule by mouth twice daily. 08/20/2021 Active Start: 12-12-2014 End: 08-07-2021 take 1 capsule by mouth twice daily docusate sodium (COLACE) 100 mg capsule Take 1 capsule by mouth twice daily. 0 12/12/2014 08/07/2021 Discontinued (Course of therapy completed) Comment on above: Take 1 capsule by mo uth twice daily. doxazosin 4 mg oral tablet (20 sources) alpha-Adrenergic [place] Start: 12-12-2024 take 1 tablet by mouth once daily at bedtime Start: 11-08-2024 End: 12-12-2024 Doxazosin 4 mg tablet Discon tinued 0 .ROUTE .COMPLEX November 08, 2024 1:30pm December 12, 2024 10:36am TAKE 1 TABLET (4 MG) DAILY Start: 05-02-2024 End: 05-06-2024 Doxazosin 4 mg tablet Discon tinued 0 .ROUTE .COMPLEX May 02, 2024 3:20pm May 06, 2024 3:31pm TAKE 1 TABLET DAILY Start: 11-11-2023 End: 12-10-2023 Doxazosin 4 mg tablet Discon tinued 0 .ROUTE .COMPLEX 90 November 11, 2023 2:20pm December 10, 2023 1:38pm TAKE 1 TABLET DAILY Start: 05-01-2014 End: 11-08-2024 take 1 tablet by mouth once daily Doxazosin 4 mg tablet Discontinued 4 MG PO Daily December 10, 2023 1:30pm May 02, 2024 3:21pm Comment on above: Take 4 mg by mouth o nce daily. doxycycline hyclate 100 mg oral tablet (7 sources) Tetracycline-cla ss Drug Start: 01-30-2022 End: 02-06-2022 take 1 [...] Comment on above: Take 1 capsule by [facility] twice daily for 28 days. Take 1 tablet by [facility] twice daily for 7 days. DULoxetine 60 mg delayed release oral capsule (20 sources) Serotonin and Norepinephrine Reuptake Inhibitor Start: 02-20-2025 take 1 capsule by mouth twice daily Start: 02-14-2025 End: 02-20-2025 take 1 capsule by mouth once daily Duloxetine 60 mg capsule,delayed release(DR/EC) Discontinued 60 MG PO Daily 90 90 February 14, 2025 12:00am February 20, 2025 11:07am Start: 12-19-2024 take 1 capsule by [facility] twice daily Start: 07-05-2024 DULoxetine (Cy mbalta) [address] capsule Indications: Lumbar radiculopathy TAKE 1 CAPSULE IN THE MORNING AND 1 CAPSULE BEFORE BEDTIME 180 capsule 1 07/05/2024 Active Start: 10-30-2023 End: 12-19-2024 take 2 capsules by mouth once daily at bedtime Duloxetine 30 mg capsule,delayed release(DR/EC) Discontinued 60 MG PO Daily at bedtime December 10, 2023 1:36pm December 19, 2024 10:14am Start: 10-30-2023 End: 12-10-2023 take 60 mg by mouth once daily at bedtime Duloxetine Active 60 MG PO Daily at bedtime December 10, 2023 12:36pm Start: 10-21-2023 End: 06-26-2024 take 1 capsule by mouth in the morning, then take 1 capsule by mouth at bedtime, then take 1 capsule by mouth once daily DULoxetine (Cymbalta) [address] capsule Indications: Lumbar radiculopathy Take 1 capsule (60 mg) by mouth in the morning and 1 capsule (60 mg) before bedtime. 1 cap daily , PO. 180 capsule 03/28/2024 06/26/2024 Active Start: 09-30-2023 End: 10-30-2023 take 1 capsule by mouth four times daily Duloxetine 30 mg capsule,delayed release(DR/EC) Discontinued 30 MG PO Four times daily September 30, 2023 12:00am October 30, 2023 8:45am Start: 09-24-2021 take 3 capsules by m outh once daily duloxetine 30 mg Cap-DR 90 mg, Oral, Daily, Refills(s) 0 Start Date: 09/24/21 Status: Ordered Start: 03-30-2017 End: 10-30-2023 Duloxetine (Cymbalta) 60 mg Capsule,Delayed Release(Dr/Ec) Discontinued 30 MG PO Three times daily March 30, 2017 12:00am October 30, 2023 8:33am Start: 03-30-2017 Duloxetine (Cy mbalta) 60 mg Capsule,Delayed Release(Dr/Ec) Active 30 MG PO Daily March 29, 2017 11:00pm Start: 10-20-2014 take 1 capsule by mo uth once daily DULoxetine (CYMBALTA) 30 mg capsule Take 1 capsule by mouth once daily. Take with 60 mg for 90 mg total dose. 30 capsule 11 10/20/2014 Active take 2 capsules by m outh twice daily DULoxetine (Cymbalta) [address] capsule Take 2 capsules (60 mg) by mouth 2 times a day. Do not crush or chew. Active take 2 capsules by m outh once daily DULoxetine (Cymbalta) [address] capsule Take 2 capsules (60 mg) by mouth once daily. Do not crush or chew. 0 Active take 1 capsule by mo uth every six hours DULoxetine HCl 30 MG 1 capsule Orally QID Active take 1 capsule by mo uth every eight hours DULoxetine HCl 30 MG 1 capsule Orally TID Active Comment on above: Take 1 capsule by mo uth once daily. Take with 60 mg for 90 mg total dose. duloxetine 30 mg Cap-DR (13 sources) Start: 09-24-2021 take 3 capsules by mouth once daily duloxetine 30 mg Cap-DR 90 mg, Oral, Daily, Refills(s) 0 Start Date: 09/24/21 Status: Ordered Repeat number: 1 Start: 09-24-2021 take 3 capsules by m outh once daily duloxetine 30 mg Cap-DR 90 [...] by mouth three times daily as needed for headache Eletriptan (Relpax) 40 mg Tablet Discontinued 1 dose pk PO Three times daily as needed for Headache March 30, 2017 12:00am September 11, 2021 5:05pm take 1 tablet by michelle th every two hours as needed eletriptan (RELPAX) 40 mg tablet Take 40 mg by mouth as needed. may repeat in 2 hours if necessary Active Comment on above: Take 40 mg by mouth as needed. may repeat in 2 hours if necessary elppa CoQ10 50 mg oral capsule (8 sources) Start: 09-24-2021 take 1 capsule by mouth once daily elppa CoQ10 50 mg oral capsule 50 mg = 1 cap(s), Oral, Daily, # 30 cap(s), Refills(s) 0 Start Date: 09/24/21 Status: Ordered ferrous sulfate 325 mg oral tablet (20 sources) Start: 01-31-2025 take 1 tablet by mouth once daily at mealtime Start: 11-02-2024 take 1 tablet by michelle th once daily at mealtime Ferrous Sulfate (Ferosul) 325 mg (65 mg iron) tablet Active 0 .ROUTE .COMPLEX November 02, 2024 10:41am TAKE 1 TABLET BY MOUTH DAILY WITH FOOD Start: 11-01-2024 End: 01-31-2025 take 1 tablet by mouth once daily at mealtime Ferrous Sulfate (Ferosul) 325 mg (65 mg iron) tablet Discontinued 0 .ROUTE .COMPLEX November 02, 2024 10:41am January 31, 2025 9:54am TAKE 1 TABLET BY MOUTH DAILY WITH FOOD Start: 08-04-2024 End: 11-01-2024 take 1 tablet by mouth once daily Ferrous Sulfate (Ferosul) 325 mg (65 mg iron) tablet Discontinued 325 MG PO Daily August 04, 2024 12:47pm November 01, 2024 9:57am Start: 05-02-2024 End: 08-04-2024 take 1 tablet by mouth once daily at mealtime Ferrous Sulfate (Ferosul) 325 mg (65 mg iron) tablet Discontinued 0 .ROUTE .COMPLEX August 04, 2024 12:30pm August 04, 2024 12:48pm TAKE 1 TABLET BY MOUTH DAILY WITH FOOD Start: 10-09-2022 End: 05-02-2024 take 1 tablet by mouth once daily at mealtime Ferrous Sulfate 325 mg (65 mg iron) tablet Discontinued 325 MG PO Daily October 30, 2023 12:00am November 02, 2023 9:17am [employer]Text[employer]: TAKE ONE TABLET BY MOUTH DAILY WITH FOOD; Note: Source Status: Taking; Refills: 1; Qty: 90 Tablet; Provider: Bonifacio Garcia ( ) Start: 10-09-2022 take 1 tablet by michelle th once daily at mealtime Ferrous Sulfate 325 (65 Fe) MG 1 tablet Orally Daily with food for 30 days Sep, Active take 1 tablet by michelle th once daily ferrous sulfate 325 (65 Fe) MG EC tablet Take 1 tablet by mouth once daily. Do not crush, chew, or split. Active Ferrous Sulfate 324 (65 Fe) MG Oral Tablet Delayed Release daily Quantity: 0 Refills: 0 Ordered: 24-Oct-2022 DO Active finasteride 5 mg oral tablet (20 sources) 5-alpha Reductase Inhibitor Start: 12-12-2024 take 1 tablet by mouth once daily at bedtime Start: 11-08-2024 End: 12-12-2024 Finasteride 5 mg tablet Disc ontinued 0 .ROUTE .COMPLEX November 08, 2024 1:30pm December 12, 2024 2:45pm TAKE 1 TABLET DAILY Start: 11-08-2024 Finasteride 5 mg tablet Active 0 .ROUTE .COMPLEX November 08, 2024 1:30pm TAKE 1 TABLET DAILY Start: 05-02-2024 End: 05-10-2024 Finasteride 5 mg tablet Disc ontinued 0 .ROUTE .COMPLEX May 02, 2024 3:20pm May 10, 2024 1:02pm TAKE 1 TABLET DAILY Start: 05-02-2024 End: 05-10-2024 Finasteride 5 mg tablet Disc ontinued 0 .ROUTE .COMPLEX May 02, 2024 3:20pm May 10, 2024 1:02pm TAKE 1 TABLET DAILY Start: 05-02-2024 End: 05-10-2024 Finasteride 5 mg tablet Disc ontinued 0 .ROUTE .COMPLEX May 02, 2024 2:20pm May 10, 2024 12:02pm TAKE 1 TABLET DAILY Start: 05-02-2024 Finasteride 5 mg tablet Active 0 .ROUTE .COMPLEX May 02, 2024 2:20pm TAKE 1 TABLET DAILY Start: 05-02-2024 Finasteride Ac tive 0 .ROUTE .COMPLEX May 02, 2024 2:20pm TAKE 1 TABLET DAILY Start: 11-03-2023 End: 12-10-2023 Finasteride 5 mg tablet Disc ontinued 0 .ROUTE .COMPLEX November 03, 2023 3:40pm December 10, 2023 1:38pm TAKE 1 TABLET DAILY Start: 11-03-2023 End: 12-10-2023 Finasteride 5 mg tablet Disc ontinued 0 .ROUTE .[place] [id number] November 03, 2023 3:40pm December 10, 2023 1:38pm TAKE 1 TABLET DAILY Start: 11-03-2023 End: 12-10-2023 Finasteride 5 mg tablet Disc ontinued 0 .ROUTE .COMPLEX November 03, 2023 2:40pm December 10, 2023 12:38pm TAKE 1 TABLET DAILY Start: 11-03-2023 End: 12-10-2023 Finasteride Discontinued 0 . ROUTE .COMPLEX November 03, 2023 2:40pm December 10, 2023 12:38pm TAKE 1 TABLET DAILY Start: 11-03-2023 End: 12-10-2023 Finasteride Discontinued 0 . ROUTE .COMPLEX November 03, 2023 3:40pm December 10, 2023 1:38pm TAKE 1 TABLET DAILY Start: 11-03-2023 Finasteride Ac tive 0 .ROUTE .COMPLEX November 03, 2023 3:40pm TAKE 1 TABLET DAILY Start: 08-27-2013 End: 11-08-2024 take 1 tablet by mouth once daily Finasteride 5 mg tablet Discontinued 5 MG PO Daily December 10, 2023 1:31pm May 02, 2024 3:21pm Comment on above: Take 5 mg by mouth d aily at bedtime. Fish Oils (20 sources) Start: 01-25-2016 take 1 capsule by mouth once daily Fish Oil 1200 mg oral capsule 1,200 mg = 1 cap(s), Oral, Daily, Refills(s) 0, High cholesterol Start Date: 01/25/16 Status: Ordered Repeat number: 1 Start: 01-25-2016 take 1 capsule by mo uth once daily Fish Oil 1200 mg oral capsule 1,200 mg = 1 cap(s), Oral, Daily, Refills(s) 0, High cholesterol Start Date: 01/25/16 Status: Ordered take 1 capsule by mo uth once daily take 1 capsule by mo uth once daily Fish Oil 1000 MG 1 capsule Orally Once a day Active 1.5 ml fremanezumab-vfrm 150 mg/ml auto-injector (20 sources) Start: 07-11-2024 inject 1.5 mL by subcutaneous injection every 30 days fremanezumab (Ajovy) 225 MG/1.5ML auto-injector Indications: Chronic migraine without aura with status migrainosus, not intractable (CMS/HCC) INJECT 1.5ML (225MG) UNDER THE SKIN EVERY 30 DAYS. 4.5 mL 1 07/11/2024 Active Start: 04-25-2024 inject 225 mg by sub cutaneous injection every month fremanezumab (Ajovy) 225 MG/1.5ML prefilled syringe Indications: Chronic migraine without aura with status migrainosus, not intractable (CMS/HCC) INJECT 225MG (1 SYRINGE) UNDER THE SKIN ONE TIME MONTHLY 1.5 mL 04/25/2024 Active Start: 04-25-2024 End: 07-24-2024 inject 1.5 mL by subcutaneous injection every 30 days fremanezumab (Ajovy) 225 MG/1.5ML prefilled syringe Indications: Chronic migraine without aura with status migrainosus, not intractable (CMS/HCC) Inject 1.5 mL (225 mg) under the skin every 30 (thirty) days 4.5 mL 04/25/2024 07/24/2024 Active Start: 02-22-2024 inject 225 mg by sub cutaneous injection every month Ajovy 225 MG/1.5ML prefilled syringe Indications: Chronic migraine without aura with status migrainosus, not intractable (CMS/HCC) INJECT 225 MG (1 SYRINGE) SUBCUTANEOUSLY ONE TIME MONTHLY 1.5 mL 02/22/2024 Active Start: 01-28-2024 inject 225 mg by sub cutaneous injection every month fremanezumab (Ajovy) 225 MG/1.5ML prefilled syringe Indications: Chronic migraine without aura with status migrainosus, not intractable (CMS/HCC) INJECT 225 MG (1 SYRINGE) SUBCUTANEOUSLY ONE TIME MONTHLY 1.5 mL 3 01/28/2024 Active Start: 06-02-2022 End: 12-19-2024 Fremanezumab-Vfrm (Ajovy Syr luis) 225 mg/1.5 mL Syringe Discontinued 250 MG SUBCUT Q28D June 02, 2022 1:00am December 19, 2024 10:12am for migraines, patient last injection 05/27 Start: 11-20-2021 fremanezumab ( Ajovy) 225 MG/1.5ML auto-injector Indications: Chronic migraine without aura with status migrainosus, not intractable (CMS/HCC) Inject 1 pen (225 mg) under the skin every 30 (thirty) days INJECT 1.5ML (225MG) UNDER THE SKIN EVERY 30 DAYS. 4.5 mL 3 08/30/2024 Active fremanezumab (Aj ovy) 225 mg/1.5 mL prefilled syringe 1.5 mL (225 mg) every 28 (twenty-eight) days. Active fremanezumab (Aj ovy) 225 MG/1.5ML auto-injector 225 mg every 30 (thirty) days Active fremanezumab-vfrm (AJOVY SYR LUIS SUBCUTANEOUS) (20 sources) fremanezumab-vfr m (AJOVY SYRINGE SUBCUTANEOUS) Inject 250 mg/mL subcutaneously. every 28 days for migraines Active fremanezumab-vfr m (AJOVY SYRINGE SUBCUTANEOUS) Inject 250 mg/mL subcutaneously. every 28 days for migraines 0 Suspended fremanezumab-vfr m (AJOVY SYRINGE SUBCUTANEOUS) Inject 250 mg/mL subcutaneously. every 28 days for migraines 0 Active Comment on above: Inject 250 mg/mL sub cutaneously. every 28 days for migraines furosemide 40 mg oral tablet (20 sources) Loop Diuretic Start: 08-18-2024 take 1 tablet by mouth once daily in the morning Start: 05-02-2024 End: 08-18-2024 Furosemide 40 mg tablet Disc ontinued 0 .ROUTE .COMPLEX May 02, 2024 3:19pm August 18, 2024 10:43am TAKE 1 TABLET DAILY Start: 11-11-2023 End: 12-10-2023 Furosemide 40 mg tablet Disc ontinued 0 .ROUTE .COMPLEX November 11, 2023 2:21pm December 10, 2023 1:38pm TAKE 1 TABLET DAILY Start: 05-29-2014 End: 05-02-2024 take 1 tablet by mouth once daily Furosemide 40 mg tablet Discontinued 40 MG PO Daily December 10, 2023 1:32pm May 02, 2024 3:21pm Comment on above: Take 40 mg by mouth once daily. Garcinia Cambogia-Chromium 500-200 MG-MCG tablet (10 sources) Garcinia Cambogia-Chromium 500-200 MG-MCG tablet Take by mouth Active Green Tea Capsule (10 sources) Start: 11-20-2021 take 1 capsule by mouth once daily Green Tea Capsule Green Tea Capsule, 315 mg, Oral, Daily Start Date: 11/20/21 Status: Ordered Repeat number: 1 Start: 11-20-2021 take 1 capsule by [facility] once daily Green Tea Capsule Green Tea [...] Date: 10/07/21 Stop Date: 10/14/21 Status: Ordered Lactobacillus acidophilus (20 sources) take 1 capsule by mouth once daily LACTOBACILLUS ACIDOPHILUS (PROBIOTIC ACIDOPHILUS ORAL) Take 1 capsule by mouth once daily. Active End: 08-07-2021 Lactobacillus acidophilus (P ROBIOTIC ORAL) Take by mouth once daily. 100 million 08/07/2021 Discontinued (Course of therapy completed) take 1 capsule by mo uth once daily LACTOBACILLUS ACIDOPHILUS (PROBIOTIC ACIDOPHILUS ORAL) Take 1 capsule by mouth once daily. 0 Suspended take 1 capsule by mo uth once daily LACTOBACILLUS ACIDOPHILUS (PROBIOTIC ACIDOPHILUS ORAL) Take 1 capsule by mouth once daily. 0 Active Comment on above: Take 1 capsule by mo uth once daily. lactobacillus combination no.4 3 billion cell cap (20 sources) Start: 02-27-2022 lactobacillus combination no.4 3 billion cell cap Take 1 capsule by mouth once daily. 30 capsule 3 02/27/2022 Active Start: 02-27-2022 End: 03-29-2022 lactobacillus combination no .4 3 billion cell cap Take 1 capsule by mouth once daily. 30 capsule 3 02/27/2022 03/29/2022 Active Comment on above: Take 1 capsule by mo uth once daily. levoFLOXacin 500 mg oral tablet (6 sources) Quinolone Antimicrobial Start: 05-26-20 take 1 tablet by mouth every twenty-four hours levoFLOXacin 500 MG 1 tablet Orally Once a day for 10 days Apr, Active Start: 04-21-2023 take 2 tablets by mo uth once daily Levaquin 250 MG 2 tablets Orally Once a day for 10 days Mar, Active 3 ml liraglutide 6 mg/ml pen injector (10 sources) GLP-1 Receptor Agonist Victoza 18 MG/3ML We ek one- 0.6mg daily, Week two thereafter- 1.2mg daily Subcutaneous Daily for 30 days Please dispense brand and amt of pen needles allowed by insurance. Thanks. Cardiovascular risk factor Z91.89, prediabetes R73.09, Active Magnesium (20 sources) Start: take 2 tablets by mouth once daily at bedtime Magnesium 200 mg tablet Active 400 MG PO Daily at bedtime October 30, 2023 12:00am Complies with drug therapy Start: 10-30-2023 take 2 tablets by mo uth once daily at bedtime Start: 10-30-2023 take 2 tablets by mo uth once daily Magnesium 200 mg tablet Active 400 MG PO Daily October 30, 2023 12:00am Start: 10-30-2023 take 2 tablets by mo uth once daily Magnesium 200 mg tablet Active 400 MG PO Daily October 29, 2023 11:00pm Start: 10-30-2023 take 400 mg by mouth once [place] Magnesium Active 400 MG PO Daily October 29, 2023 11:00pm Start: 10-30-2023 take 400 mg by mouth once [place] Magnesium Active 400 MG PO Daily October 30, 2023 12:00am take 400 mg by mouth once daily MAGNESIUM ORAL Take 400 mg by mouth once daily. Active take 1 tablet by mouth once [place] Magnesium 400 MG Oral Tablet 1 TAB DAILY Quantity: 0 Refills: 0 Ordered: 24-Oct-2022 DO Active Magnesium 500mg 1 tablet at bedtime Active take 1 capsule by mo uth once daily take 1 capsule by mo uth once daily Magnesium 300 MG 1 capsule with a [...] daily. magnesium oxide 400 mg oral tablet (20 sources) Start: 09-24-2021 take 1 tablet by mouth once daily magnesium oxide 400 mg Tab 400 mg = 1 tab(s), Oral, Daily, Refills(s) 0 Start Date: 09/24/21 Status: Ordered Repeat number: 1 take 1 tablet by mouth once [place] MAGNESIUM OXIDE 400 PO Take 1 tablet by mouth Daily Active JOHANNE BIOTIN ORAL (3 sources) take 79649 ug by michelle th once daily JOHANNE BIOTIN ORAL Take 10,000 mcg by mouth once daily. Active take 19092 ug by mouth once [place] JOHANNE BIOTIN ORAL Take 10,000 mcg by mouth once daily. 0 Active menthol 0.04 mg/mg topical g el (10 sources) Start: 11-20-2021 Biofreeze 4% t opical gel 1 beau, Topical, q6hr Other (see comment), Refill(s) 0 Start Date: 11/20/21 Status: Ordered Repeat number: 1 Start: 11-20-2021 Biofreeze 4% t opical gel 1 beau, Topical, q6hr Other (see comment), Refill(s) 0 Start Date: 11/20/21 Status: Ordered methocarbamol 500 mg oral tablet (20 sources) Muscle Relaxant Start: 05-18-2024 take 1 tablet by mouth every eight hours as needed methocarbamol (Robaxin) 500 MG tablet Take 500 mg by mouth every 8 (eight) hours if needed 05/18/2024 Active Start: 05-06-2024 End: 05-18-2024 take 1 tablet by mouth three times daily Methocarbamol 500 mg tablet Discontinued 500 MG PO Three times daily May 06, 2024 1:00am May 18, 2024 11:46am Start: 09-24-2021 take 2 tablets by mo [facility] three times daily Start: 09-09-2021 End: 10-09-2021 take 1 tablet by mouth every eight hours as needed methocarbamol (ROBAXIN) 500 mg tablet Take 1 tablet by mouth three times daily as needed. 90 tablet 0 09/09/2021 10/09/2021 Comment on above: Take 1 tablet by michelle three times daily as needed. methylPREDNISolone (20 sources) Corticosteroid Start: 02-09-2025 End: 02-15-2025 methylPREDNISolone (MEDROL, JOAQUÍN,) 4 mg Dose-Pack As instructed per package 21 tablet 02/09/2025 02/15/2025 Active Start: 11-30-2024 End: 12-06-2024 methylPREDNISolone (MEDROL D OSE-PACK) 4 mg Dose-Pack Indications: Lumbar radiculopathy Take as instructed per package. 21 tablet 11/30/2024 12/06/2024 Active Start: 07-20-2024 End: 11-30-2024 methylPREDNISolone (MEDROL D OSE-PACK) 4 mg Dose-Pack As Instructed per package 21 tablet 07/20/2024 11/30/2024 Discontinued Start: 07-20-2024 methylPREDNISo lone (MEDROL DOSE-PACK) 4 mg Dose-Pack As Instructed per package 21 tablet 07/20/2024 Active Start: 02-16-2024 End: 02-16-2024 methylPREDNISolone Na Suc (P F) reconstituted solution 40 mg Start: 02-16-2024 End: 02-16-2024 40 mg, Injection, Once PRN P rocedure, Starting on Thu02/16/24 at 0820, For 1 dose Start: 07-30-2023 methylPREDNISo lone 4 MG as directed Orally As directed for 6 days Jul, Active Start: 04-07-2023 methylPREDNISo lone 4 MG as directed Orally As directed for 6 days Mar, Active Start: 09-24-2022 Medrol (Joaquín) 4 MG as directed Orally as directed for 6 days Aug, Active Start: 07-03-2022 End: 07-20-2024 methylPREDNISolone (MEDROL D OSE-PACK) 4 mg Dose-Pack As Instructed per package 21 tablet 07/03/2022 07/20/2024 Discontinued Start: 07-03-2022 methylPREDNISo lone (MEDROL DOSE-PACK) 4 mg Dose-Pack As Instructed per package 21 tablet 07/03/2022 Active Start: 07-03-2022 methylPREDNISo lone (MEDROL DOSE-PACK) [...] on above: As Instructed per raimundo martin methylPREDNISolone 4 mg tab dosepak (1 source) Start: 2024 take 1 tablet by mouth once methylPREDNISolone 4 mg tab dosepak = 1 packet(s), Oral, Once, as directed on package labeling, X 6 day(s), # 21 tab(s) Start Date: 12/05/24 Status: Ordered Quantity: 21.0 Unit: tab(s) Repeat number: 1 24 hr metoprolol succinate 50 mg extended release oral tablet (20 sources) beta-Adrenergic Conrell Start: 2024 take 1 tablet by mouth once daily in the morning Start: 05-02-2024 End: 08-18-2024 Metoprolol Succinate 50 mg t ablet extended release 24 hr Discontinued 0 .ROUTE .COMPLEX May 02, 2024 3:20pm August 18, 2024 10:43am TAKE 1 TABLET DAILY Start: 05-02-2024 End: 08-18-2024 Metoprolol Succinate 50 mg t ablet extended release 24 hr Discontinued 0 .ROUTE .COMPLEX May 02, 2024 3:20pm August 18, 2024 10:43am TAKE 1 TABLET DAILY Start: 05-02-2024 End: 08-18-2024 Metoprolol Succinate 50 mg t ablet extended release 24 hr Discontinued 0 .ROUTE .COMPLEX May 02, 2024 2:20pm August 18, 2024 9:43am TAKE 1 TABLET DAILY Start: 05-02-2024 Metoprolol Suc cinate 50 mg tablet extended release 24 hr Active 0 .ROUTE .COMPLEX May 02, 2024 2:20pm TAKE 1 TABLET DAILY Start: 05-02-2024 Metoprolol Suc cinate Active 0 .ROUTE .COMPLEX May 02, 2024 2:20pm TAKE 1 TABLET DAILY Start: 11-03-2023 End: 12-10-2023 Metoprolol Succinate 50 mg t ablet extended release 24 hr Discontinued 0 .ROUTE .COMPLEX November 03, 2023 3:31pm December 10, 2023 1:38pm TAKE 1 TABLET DAILY Start: 11-03-2023 End: 12-10-2023 Metoprolol Succinate 50 mg t ablet extended release 24 hr Discontinued 0 .ROUTE .COMPLEX November 03, 2023 3:31pm December 10, 2023 1:38pm TAKE 1 TABLET DAILY Start: 11-03-2023 End: 12-10-2023 Metoprolol Succinate 50 mg t ablet extended release 24 hr Discontinued 0 .ROUTE .COMPLEX November 03, 2023 2:31pm December 10, 2023 12:38pm TAKE 1 TABLET DAILY Start: 11-03-2023 End: 12-10-2023 Metoprolol Succinate Discont inued 0 .ROUTE .COMPLEX November 03, 2023 2:31pm December 10, 2023 12:38pm TAKE 1 TABLET DAILY Start: 11-03-2023 End: 12-10-2023 Metoprolol Succinate Discont inued 0 .ROUTE .COMPLEX November 03, 2023 3:31pm December 10, 2023 1:38pm TAKE 1 TABLET DAILY Start: 11-03-2023 Metoprolol Suc cinate Active 0 .ROUTE .COMPLEX November 03, 2023 3:31pm TAKE 1 TABLET DAILY Start: 03-30-2017 End: 10-30-2023 take 1 tablet by mouth once daily in the morning Metoprolol Tartrate 50 mg Tablet Discontinued 50 MG PO Every morning March 30, 2017 12:00am October 30, 2023 8:44am Start: 06-06-2014 End: 05-02-2024 take 1 tablet by mouth once daily Metoprolol Succinate 50 mg tablet extended release 24 hr Discontinued 50 MG PO Daily December 10, 2023 1:33pm May 02, 2024 3:21pm Comment on above: Take 50 mg by mouth once daily. Milk thistle extract (20 sources) Start: 09-24-2021 take 2 tablets by mouth once daily Milk Thistle oral capsule 2 tab(s), Oral, Daily, Refill(s) 0 Start Date: 09/24/21 Status: Ordered Repeat number: 1 Start: 09-24-2021 take 2 tablets by mo uth once daily Milk Thistle oral capsule 2 tab(s), Oral, Daily, Refill(s) 0 Start Date: 09/24/21 Status: Ordered Milk Thistle 140 MG as directed Orally Active Miralax 17 gram packet (13 sources) Start: 09-24-2021 take 17 g by mouth o nce daily as needed for constipation Miralax 17 gram packet 17 gram, Oral, Daily, PRN Constipation, # 527 gram, Refills(s) 0 Start Date: 09/24/21 Status: Ordered Quantity: 527.0 Unit: g Repeat number: 1 Start: 09-24-2021 take 17 g by mouth o nce daily as needed for constipation Miralax 17 gram packet 17 gram, Oral, Daily, PRN Constipation, # 527 gram, Refills(s) 0 Start Date: 09/24/21 Status: Ordered Mjabpqlx-Ioa-Deuer-Vit K-Lycop (One-A-Day Men's Multivitamin) 400-300 mcg Tablet (20 sources) Start: 03-30-2017 take 1 tablet by mouth once daily in the evening Qaxfohzt-Lry-Rynvr-Vit K-Lycop (One-A-Day Men's Multivitamin) 400-300 mcg Tablet Active 1 TAB PO Every evening March 30, 2017 12:00am Complies with drug therapy Start: 03-30-2017 take 1 tablet by michelle once daily in the evening Start: 03-30-2017 take 1 tablet by mouth once da jed Xfmztzje-Apx-Hnefj-Vit K- Lycop (One-A-Day Men's Multivitamin) 400-300 mcg Tablet Active 1 TAB PO Daily March 29, 2017 11:00pm Start: 03-30-2017 take 1 tablet by mouth once da jed Xvwkxiyd-Gio-Ranwz-Vit K- Lycop (One-A-Day Men's Multivitamin) 400-300 mcg Tablet Active 1 TAB PO Daily March 30, 2017 12:00am multivitamin capsule (3 sources) take 1 capsule by mo uth once daily multivitamin capsule Take 1 capsule by mouth once daily. Active take 1 capsule by mouth once [place] multivitamin capsule Take 1 capsule by mouth [...] capsule (20 sources) Tricyclic Antidepressant Start: 04-26-2019 End: 02-28-2025 take 1 capsule by mouth once daily at bedtime Comment on above: Take 50 mg by mouth daily at bedtime. omega-3 fatty acids (FISH OIL CONCENTRATE ORAL) (3 sources) take 1 tablet by mouth once daily omega-3 fatty acids (FISH OIL CONCENTRATE ORAL) Take 1 tablet by mouth once daily. Active take 1 tablet by mouth once chelsea y omega-3 fatty acids (FISH OIL CONCENTRATE ORAL) Take 1 tablet by mouth once daily. 0 Active Omeprazole (20 sources) Proton Pump Inhibitor Start: 12-05-2024 omeprazo le Oral, Daily Start Date: 12/05/24 Status: Ordered Repeat number: 1 Start: 08-18-2024 Start: 05-02-2024 End: 08-18-2024 Omeprazole 40 mg capsule,del ayed release(DR/EC) Discontinued 0 .ROUTE .COMPLEX 90 May 02, 2024 3:20pm August 18, 2024 10:47am TAKE 1 CAPSULE DAILY 30 MINUTES BEFORE MORNING MEAL Start: 05-02-2024 Omeprazole Act grace 0 .ROUTE .COMPLEX May 02, 2024 2:20pm TAKE 1 CAPSULE DAILY 30 MINUTES BEFORE MORNING MEAL Start: 12-10-2023 End: 05-02-2024 Omeprazole 40 mg capsule,del ayed release(DR/EC) Discontinued 40 MG PO .COMPLEX as needed December 10, 2023 1:34pm May 02, 2024 3:21pm 40 mg orally PRN; Start: 11-03-2023 End: 12-10-2023 Omeprazole 40 mg capsule,del ayed release(DR/EC) Discontinued 0 .ROUTE .COMPLEX November 03, 2023 3:32pm December 10, 2023 1:38pm TAKE 1 CAPSULE DAILY 30 MINUTES BEFORE MORNING MEAL Start: 11-03-2023 End: 12-10-2023 Omeprazole Discontinued 0 .R OUTE .COMPLEX November 03, 2023 2:32pm December 10, 2023 12:38pm TAKE 1 CAPSULE DAILY 30 MINUTES BEFORE MORNING MEAL Start: 11-03-2023 End: 12-10-2023 Omeprazole Discontinued 0 .R OUTE .COMPLEX November 03, 2023 3:32pm December 10, 2023 1:38pm TAKE 1 CAPSULE DAILY 30 MINUTES BEFORE MORNING MEAL Start: 11-03-2023 Omeprazole Act grace 0 .ROUTE .COMPLEX November 03, 2023 3:32pm TAKE 1 CAPSULE DAILY 30 MINUTES BEFORE MORNING MEAL Start: 07-27-2021 End: 11-03-2023 take 1 capsule by mouth once daily in the morning Omeprazole 40 mg capsule,delayed release(DR/EC) Discontinued 40 MG PO Every morning September 11, 2021 12:00am November 03, 2023 3:32pm Start: 01-25-2016 Prilosec 40 mg , Oral, Daily, Refills(s) 0, Control of stomach acid Start Date: 01/25/16 Status: Ordered Repeat number: 1 Start: 01-25-2016 End: 11-27-2021 take 40 mg by mouth once daily Prilosec 40 mg, Oral, D aily, Refills(s) 0, Control of stomach acid Start Date: 01/25/16 Status: Ordered Comment on above: Take 40 mg by mouth once daily. One-A-Day (15 sources) Start: 01-25-2016 take 1 tablet by mouth once daily at bedtime One-A-Day 1 tab(s), Oral, Bedtime, Refill(s) 0, Prophylaxis Start Date: 01/25/16 Status: Ordered Repeat number: 1 Start: 01-25-2016 take 1 tablet by michelle th once daily at bedtime One-A-Day 1 tab(s), Oral, Bedtime, Refill(s) 0, Prophylaxis Start Date: 01/25/16 Status: Ordered oxyCODONE hydrochloride 5 mg oral tablet (9 sources) Opioid Agonist Start: 01-06-2022 End: 01-13-2022 take 1 tablet by mouth every six [...] inje ction every week polyethylene glycol 3350 [id number] mg powder for oral solution (8 sources) [...] ounces of liquid and take as directed. microencapsulated potassium chloride 20 meq extended release oral tablet (20 sources) Start: 08-18-2024 take 1 tablet by mouth once daily at mealtime Start: 05-02-2024 End: 08-18-2024 Potassium Chloride (Klor-Con M20) 20 mEq tablet,ER particles/crystals Discontinued 0 .ROUTE .COMPLEX 90 May 02, 2024 3:19pm August 18, 2024 10:47am TAKE 1 TABLET DAILY WITH FOOD Start: 12-10-2023 End: 05-02-2024 Potassium Chloride (Klor-Con M20) 20 mEq tablet,ER particles/crystals Discontinued 20 MEQ PO Daily December 10, 2023 1:34pm May 02, 2024 3:21pm Start: 11-24-2023 End: 12-10-2023 Potassium Chloride (Klor-Con M20) 20 mEq tablet,ER particles/crystals Discontinued 0 .ROUTE .COMPLEX 90 November 24, 2023 4:25pm December 10, 2023 1:38pm TAKE 1 TABLET DAILY WITH FOOD Start: 07-27-2021 take 1 tablet by michelle th three times daily Klor-Con M20 20 MEQ Oral Tablet Extended Release TAKE 1 TABLET 3 TIMES DAILY. Quantity: 0 Refills: 0 Ordered: 22-Jan-2022 DO Start : 27-Jul-2021 Active Start: 01-25-2016 Klor-Con M20 2 0 mEq, Oral, Daily, Refills(s) 0, Leg cramps Start Date: 01/25/16 Status: Ordered Repeat number: 1 Start: 01-25-2016 Klor-Con M20 2 0 mEq, Oral, Daily, Refills(s) 0, Leg cramps Start Date: 01/25/16 Status: Ordered Start: 03-27-2014 End: 11-24-2023 take 1 tablet by mouth once daily in the morning Potassium Chloride (Klor-Con M20) 20 mEq tablet,ER particles/crystals Discontinued 1 TAB PO Every morning March 30, 2017 12:00am November 24, 2023 4:25pm Comment on above: Take 20 mEq by mouth once daily. prasterone 50 mg oral capsule (20 sources) Start: 09-24-2021 take 1 tablet by mouth once daily DHEA 50 mg oral capsule = 1 tab(s), Oral, Daily, Refills(s) 0 Start Date: 09/24/21 Status: Ordered End: 11-27-2021 take 1 tablet by mouth once daily prasterone, dhea, (DHEA) 50 mg tab Take by mouth once daily. 11/27/2021 Discontinued Comment on above: Take by mouth once d aily. pregabalin 200 mg oral capsule (20 sources) Start: 12-04-2021 End: 12-14-2024 take 1 capsule by mouth three times daily Start: 09-22-2021 End: 10-22-2021 take 1 capsule by mouth twice daily Lyrica 200 mg Cap 200 mg = 1 cap(s), Oral, BID, Refills(s) 0 Start Date: 09/24/21 Status: Ordered Repeat number: 1 Start: 09-11-2021 End: 10-30-2023 Pregabalin 100 mg capsule Discontinued 200 MG PO Daily at 0730, 1530, 2330 September 11, 2021 12:00am October 30, 2023 8:37am Start: 09-11-2021 take 100 mg by mouth once chelsea y Pregabalin Active 100 MG PO Daily September 10, 2021 11:00pm Start: 09-11-2021 End: 10-30-2023 Pregabalin Discontinued 200 MG PO Daily at 0730, 1530, 2330 September 10, 2021 11:00pm October 30, 2023 7:37am take [address] [facility] once daily at bedtime Lyrica 300 MG 2 capsule 1 to 3 hours before bedtime Orally Once a day Active take 1 capsule by mo [facility] once daily at bedtime Lyrica 300 MG 1 capsule 1 to 3 hours before bedtime Orally Once a day Active take 1 capsule by mo [facility] once daily at bedtime Lyrica 200 MG 1 capsule 1 to 3 hours before bedtime Orally Once a day Active Comment on above: Take 1 capsule by mo [facility] twice daily for 30 days. Take 1 capsule by mo [facility] three times daily for 90 days. Probiotic (20 sources) Probiotic as dir ected Active rOPINIRole 1 mg oral tablet (20 sources) Nonergot Dopamine Agonist Start: 01-31-2025 take 1 tablet by mouth once daily in the morning Start: 04-08-2024 rOPINIRole (Re quip) 1 MG tablet Indications: RLS (restless legs syndrome) TAKE 1 TABLET IN THE EVENING 90 tablet 3 04/08/2024 Active Start: 10-30-2023 End: 01-31-2025 take 1 tablet by mouth once daily Ropinirole 0.5 mg tablet Discontinued 0.5 MG PO Daily October 30, 2023 12:00am January 31, 2025 9:54am FreeTextSi tablet Orally Once a day; Note: Source Status: Taking; Refills: 1; Qty: 90 Tablet; Provider: Bonifacio Prieto Start: 10-26-2023 take 1 tablet by michelle th in the evening rOPINIRole (Requip) 1 MG tablet Indications: RLS (restless legs syndrome) Take 1 tablet (1 mg) by mouth in the evening 90 tablet 1 10/26/2023 Active Saccharomyces boulardii 10 billion cell capsule (2 sources) take 1 capsule by mouth once daily Saccharomyces boulardii 10 billion cell capsule Take 250 mg by mouth once daily. Active Selenium TR 200 mcg oral tablet (14 sources) Start: 09-24-2021 take 1 tablet by mouth at bedtime Selenium TR 200 mcg oral tablet = 1 tab(s), Oral, Bedtime, # 30 tab(s), Refills(s) 0 Start Date: 09/24/21 Status: Ordered Quantity: 30.0 Unit: tab(s) Repeat number: 1 Start: 09-24-2021 take 1 tablet by michelle th at bedtime Selenium TR 200 mcg oral tablet = 1 tab(s), Oral, Bedtime, # 30 tab(s), Refills(s) 0 Start Date: 09/24/21 Status: Ordered Start: 09-24-2021 take 1 tablet by michelle th once daily Selenium TR 200 mcg oral tablet = 1 tab(s), Oral, Daily, # 30 tab(s), Refills(s) 0 Start Date: 09/24/21 Status: Ordered Ozempic (1 source) Start: 12-05-2024 Ozempic SubCut aneous, qWeek, Refill(s) 0 Start Date: 12/05/24 Status: Ordered Repeat number: 1 Semaglutide (12 sources) Start: 12-19-2024 inject 2 mg by subcutaneous injection every week Semaglutide (Ozempic) 2 mg/dose (8 mg/3 mL) pen injector Active 2 MG SUBCUT every week December 19, 2024 10:25am Complies with drug therapy Start: 12-19-2024 inject 2 mg by subcu taneous injection every week Start: 09-20-2024 End: 12-19-2024 inject 2 mg by subcutaneous injection every week Semaglutide (Ozempic) 2 mg/dose (8 mg/3 mL) pen injector Discontinued 2 MG SUBCUT every week September 20, 2024 12:00am December 19, 2024 10:26am Start: 10-30-2023 End: 09-28-2024 inject 2 mg by subcutaneous injection every week Semaglutide (Ozempic) 2 mg/dose (8 mg/3 mL) pen injector Discontinued 2 MG SUBCUT every week October 30, 2023 12:00am September 28, 2024 2:55pm Start: 09-30-2023 End: 10-01-2023 inject 2 mg by subcutaneous injection every week Semaglutide (Ozempic) 2 mg/dose (8 mg/3 mL) pen injector Discontinued 2 MG SUBCUT every week September 30, 2023 12:00am October 01, 2023 3:01pm FreeTextSi mg Subcutaneous weekly; Note: Source Status: TakingPatient assistance.; Provider: Eddi Guzman Semaglutide (Ozempic) 2 mg/dose (8 mg/3 mL) pen injector (20 sources) Start: 09-20-2024 inject 2 mg by subcutaneous injection every week Semaglutide (Ozempic) 2 mg/dose (8 mg/3 mL) pen injector Active 2 MG SUBCUT every week September 20, 2024 12:00am Start: 10-30-2023 End: 09-28-2024 inject 2 mg by subcutaneous injection every week Semaglutide (Ozempic) 2 mg/dose (8 mg/3 mL) pen injector Discontinued 2 MG SUBCUT every week October 30, 2023 12:00am September 28, 2024 2:55pm Start: 10-30-2023 inject 2 mg by subcu taneous injection every week Semaglutide (Ozempic) 2 mg/dose (8 mg/3 mL) pen injector Active 2 MG SUBCUT every week October 29, 2023 11:00pm Start: 10-30-2023 inject 2 mg by subcu taneous injection every week Semaglutide (Ozempic) 2 mg/dose (8 mg/3 mL) pen injector Active 2 MG SUBCUT every week October 30, 2023 12:00am Start: 09-30-2023 End: 10-01-2023 inject 2 mg by subcutaneous injection every week Semaglutide (Ozempic) 2 mg/dose (8 mg/3 mL) pen injector Discontinued 2 MG SUBCUT every week September 29, 2023 11:00pm October 01, 2023 2:01pm FreeTextSi mg Subcutaneous weekly; Note: Source Status: TakingPatient assistance.; Provider: Eddi Guzman Start: 09-30-2023 End: 10-01-2023 inject 2 mg by subcutaneous injection every week Semaglutide (Ozempic) 2 mg/dose (8 mg/3 mL) pen injector Discontinued 2 MG SUBCUT every week September 30, 2023 12:00am October 01, 2023 3:01pm FreeTextSi mg Subcutaneous weekly; Note: Source Status: TakingPatient assistance.; Provider: Eddi Guzman Start: 09-30-2023 inject 2 mg by subcu taneous injection every week Semaglutide (Ozempic) 2 mg/dose (8 mg/3 mL) pen injector Active 2 MG SUBCUT every week September 30, 2023 12:00am FreeTextSi mg Subcutaneous weekly; Note: Source Status: TakingPatient assistance.; Provider: Eddi Guzman Semaglutide (OZEMPIC, 2 MG/DOSE, SC) (20 sources) inject 2 mg by subcutaneous injection every week Semaglutide (OZEMPIC, 2 MG/DOSE, SC) Inject 2 mg under the skin 1 (one) time per week Active semaglutide 2 mg/dose (8 mg/3 mL) pen injector (2 sources) inject 2 mg by subcutaneous injection every week semaglutide 2 mg/dose (8 mg/3 mL) pen injector Inject 2 mg under the skin 1 (one) time per week. Active sildenafil 50 mg oral tablet (20 sources) Phosphodiesterase 5 Inhibitor Start: take 1 tablet by mouth once daily as needed Start: 09-23-2021 End: 11-27-2021 Comment on above: Take 50 mg by mouth as needed. 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 1 Syringe every 14 (fourteen) days 6 each 1 06/14/2024 Active Syringe/Needle, Disp, (Luer Lock Safety Syringes) 22G X 1-1/2 3 ML misc (13 sources) Start: 06-08-2024 End: 08-31-2024 Syringe/Needle, Disp, (Luer Lock Safety Syringes) 22G X 1-1/2 3 ML misc 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 1 Syringe every 14 (fourteen) days 6 each 1 06/08/2024 08/31/2024 Active Start: 04-11-2024 End: 07-04-2024 Syringe/Needle, Disp, (Luer Lock Safety Syringes) 22G X 1-1/2 3 ML misc 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 1 Syringe every 14 (fourteen) days 6 each 1 04/11/2024 07/04/2024 Active telmisartan 80 mg oral tablet (20 sources) Angiotensin 2 Receptor [facility] Start: 01-31-2025 take 1 tablet by mouth once daily in the morning Start: 01-23-2025 End: 01-31-2025 Telmisartan 80 mg tablet Discontinued 0 .ROUTE .COMPLEX January 23, 2025 3:44pm January 31, 2025 9:54am TAKE 1 TABLET DAILY Start: 01-29-2024 End: 08-18-2024 Telmisartan 80 mg tablet Discontinued 0 .ROUTE .COMPLEX January 29, 2024 9:47am August 18, 2024 10:47am TAKE 1 TABLET DAILY Start: 01-29-2024 End: 08-18-2024 Telmisartan 80 mg tablet Discontinued 0 .ROUTE .COMPLEX January 29, 2024 9:47am August 18, 2024 10:47am TAKE 1 TABLET DAILY Start: 01-29-2024 End: 08-18-2024 Telmisartan 80 mg tablet Discontinued 0 .ROUTE .COMPLEX January 29, 2024 8:47am August 18, 2024 9:47am TAKE 1 TABLET DAILY Start: 01-29-2024 Telmisartan 80 mg tablet Active 0 .ROUTE .COMPLEX January 29, 2024 8:47am TAKE 1 TABLET DAILY Start: 01-29-2024 Telmisartan Ac tive 0 .ROUTE .COMPLEX January 29, 2024 8:47am TAKE 1 TABLET DAILY Start: 01-29-2024 Telmisartan Ac tive 0 .ROUTE .COMPLEX January 29, 2024 9:47am TAKE 1 TABLET DAILY Start: 03-30-2017 End: 01-23-2025 take 1 tablet by mouth once daily Telmisartan 80 mg tablet Discontinued 80 MG PO Daily August 18, 2024 10:46am January 23, 2025 3:44pm Comment on above: Take 80 mg by mouth daily at bedtime. Take 80 mg by mouth once daily. 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 Inject 0.75 mL (150 mg) into the shoulder, thigh, or buttocks every 14 (fourteen) days 4.5 mL 1 10/26/2024 12/05/2024 Discontinued (Reorder) Start: 09-05-2024 End: 05-22-2025 testosterone cypionate (Depo-Testosterone) 200 MG/ML injection 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 Inject 2 mL (400 mg) into the shoulder, thigh, or buttocks every 14 (fourteen) days 12 mL 1 12/05/2024 05/22/2025 Active Start: 04-01-2024 End: 06-30-2024 testosterone cypionate (Depo-Testosterone) 200 MG/ML injection 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 Inject 2 mL (400 mg) into the shoulder, thigh, or buttocks every 14 (fourteen) days 12 mL 1 04/01/2024 Active Start: 11-05-2021 Testosterone C ypionate 200 MG/ML Intramuscular Solution ADMINISTER 1 AND 1/2 milliliters intramuscularly EVERY 2 WEEKS Quantity: 12 Refills: 0 Ordered: 05-Nov-2021 DO Start : 05-Nov-2021 Active Start: 02-09-2018 TESTOSTERONE 1 4 Jan, 2018 200 mg Start: 05-28-2017 TESTOSTERONE 3 0 Apr, 2017 150 mg Start: 05-05-2017 TESTOSTERONE 0 7 Apr, 2017 .75 mL Start: 04-21-2017 TESTOSTERONE 2 4 Mar, 2017 0.5 mL Start: 04-07-2017 TESTOSTERONE 1 0 Mar, 2017 0.75 mL Start: 03-30-2017 End: 01-31-2025 inject 200 mg by intramuscular injection every other week Testosterone Cypionate 200 mg/mL Kit Discontinued 150 MG IM EVERY 2 WEEKS March 30, 2017 12:00am January 31, 2025 9:53am Start: 03-30-2017 inject 150 mg by int ramuscular injection every other week Testosterone Cypionate Active 150 MG IM EVERY 2 WEEKS March 29, 2017 11:00pm Start: 03-24-2017 TESTOSTERONE 2 6 Feb, 2017 75 mg Start: 03-06-2017 TESTOSTERONE 0 Feb, 150 mg Start: 02-24-2017 TESTOSTERONE 2 9 Jan, 2017 150 mg Start: 02-10-2017 TESTOSTERONE 1 5 Jan, 2017 150 mg Start: 01-27-2017 TESTOSTERONE 0 1 Jan, 2017 0.75 mL Start: 01-13-2017 TESTOSTERONE 1 Dec, 0.75 mL Start: 12-26-2016 TESTOSTERONE 3 0 Nov, 2016 Start: 12-10-2016 TESTOSTERONE 1 4 Nov, 2016 150 mg Start: 11-26-2016 TESTOSTERONE 3 1 Oct, 2016 150 mg Start: 11-12-2016 TESTOSTERONE 1 7 [...] the muscle every 14 (fourteen) days. Active End: 04-01-2024 testosterone cypionate (Depo-Testosterone) 200 MG/ML injection Inject 300 mg into the shoulder, thigh, or buttocks every 14 (fourteen) days 04/01/2024 Discontinued (Reorder) Testosterone Cypionate 200 mg/mL intramuscular solution (10 sources) Start: 11-20-2021 inject 300 mg by intramuscular injection every other week Testosterone Cypionate 200 mg/mL intramuscular solution 300 mg = 1.5 mL, IntraMuscular, q2wk, Refills(s) 0 Start Date: 11/20/21 Status: Ordered Repeat number: 1 Start: 11-20-2021 inject 300 mg by int ramuscular injection every other week Testosterone Cypionate 200 mg/mL intramuscular solution 300 mg = 1.5 mL, IntraMuscular, q2wk, Refills(s) 0 Start Date: 11/20/21 Status: Ordered turmeric extract 500 mg oral capsule (14 sources) Start: 09-24-2021 take 1 capsule by mouth once daily turmeric 500 mg oral capsule 500 mg = 1 cap(s), Oral, Daily, Refills(s) 0 Start Date: 09/24/21 Status: Ordered Repeat number: 1 ubidecarenone 50 mg oral capsule (10 sources) Start: 09-24-2021 take 1 capsule by mouth once daily elppa CoQ10 50 mg oral capsule 50 mg = 1 cap(s), Oral, Daily, # 30 cap(s), Refills(s) 0 Start Date: 09/24/21 Status: Ordered take 1 capsule by [facility] every twenty-four hours CoQ-10 50 MG 1 capsule with a meal Orally Once a day Active valACYclovir 500 mg oral tablet (20 sources) Herpesvirus Nucleoside Analog DNA Polymerase Inhibitor, Herpes Simplex Virus Nucleoside Analog DNA Polymerase Inhibitor, Herpes Zoster Virus Nucleoside Analog DNA Polymerase Inhibitor Start: 08-18-2024 take 1 tablet by mouth once daily in the morning Start: 05-02-2024 End: 08-18-2024 Valacyclovir 500 mg tablet Discontinued 0 .ROUTE .COMPLEX 90 May 02, 2024 3:20pm August 18, 2024 10:47am TAKE 1 TABLET DAILY Start: 05-02-2024 End: 08-18-2024 Valacyclovir 500 mg tablet Discontinued 0 .ROUTE .COMPLEX May 02, 2024 3:20pm August 18, 2024 10:47am TAKE 1 TABLET DAILY Start: 05-02-2024 End: 08-18-2024 Valacyclovir 500 mg tablet Discontinued 0 .ROUTE .COMPLEX May 02, 2024 2:20pm August 18, 2024 9:47am TAKE 1 TABLET DAILY Start: 05-02-2024 Valacyclovir 5 00 mg tablet Active 0 .ROUTE .COMPLEX May 02, 2024 2:20pm TAKE 1 TABLET DAILY Start: 05-02-2024 Valacyclovir A ctive 0 .ROUTE .COMPLEX May 02, 2024 2:20pm TAKE 1 TABLET DAILY Start: 11-11-2023 End: 12-10-2023 Valacyclovir 500 mg tablet Discontinued 0 .ROUTE .COMPLEX November 11, 2023 2:21pm December 10, 2023 1:38pm TAKE 1 TABLET DAILY Start: 07-27-2021 valACYclovir H Cl - 500 MG Oral Tablet as needed Quantity: 0 Refills: 0 Ordered: 01-Aug-2021 DO Start : 27-Jul-2021 Active Start: 05-30-2014 End: 05-02-2024 take 1 tablet by mouth once daily Valacyclovir 500 mg tablet Discontinued 500 MG PO Daily December 10, 2023 1:35pm May 02, 2024 3:21pm Comment on above: Take 500 mg by mouth as needed. vancomycin 1.5 g/250 mL-NaCl 0.9% intravenous solution (4 sources) Start: vancomycin 1.5 g/250 mL-NaCl 0.9% intravenous solution BID, Refills(s) 0 Start Date: 09/24/21 Status: Ordered Ventolin HFA 90 mcg/inh Aerosol (1 source) Start: 9 take 2 puff(s) by inhalation four times daily Ventolin HFA 90 mcg/inh Aerosol 2 puff(s), Inhalation, QID Shortness of breath or wheezing, Refill(s) 0, Shortness of breath or wheezing Start Date: 04/26/19 Status: Ordered Vitamin B Complex oral capsule (14 sources) Start: 2 Vitamin B Complex oral capsule 1 cap(s), Oral, Daily, 30 cap(s), Refill(s) 0 Start Date: 09/24/21 Status: Ordered Quantity: 30.0 Unit: cap(s) Repeat number: 1 Start: 09-24-2021 Vitamin B Comp [place] oral capsule 1 cap(s), Oral, Daily, 30 cap(s), Refill(s) 0 Start Date: 09/24/21 Status: Ordered vitamin b12 1 mg oral tablet (20 sources) Vitamin B12 take 1 tablet by mouth once daily cyanocobalamin (VITAMIN B-12) 1,000 mcg tab Indications: Stroke (HCC) , Headache Take 1,000 mcg by mouth once daily. Active take 1 tablet under the tongue once daily Cyanocobalamin (Vitamin B-12) [address] 1 tablet under the tongue Daily Active Comment on above: Take 1,000 mcg by mo [facility] once daily. Vitamin C 500 mg Tab (15 sources) Start: 12-22-2017 take 1 tablet by mouth once daily Vitamin C 500 mg Tab 500 mg = 1 tab(s), Oral, Daily, Refills(s) 0, Prophylaxis Start Date: 12/22/17 Status: Ordered Repeat number: 1 Start: 12-22-2017 take 1 tablet by [facility] once daily Vitamin C 500 mg Tab 500 mg = 1 tab(s), Oral, Daily, Refills(s) 0, Prophylaxis Start Date: 12/22/17 Status: Ordered Vitamin D 125 MCG (5000 UT) (4 sources) Vitamin D 125 MC G (5000 UT) as directed Orally Active zolpidem tartrate 5 mg oral tablet (20 sources) gamma-Aminobutyr ic Acid-ergic Agonist Start: 2 take 1 tablet by mouth once daily at bedtime as needed for sleep Ambien 5 mg Tab 5 mg = 1 tab(s), Oral, Once a day (at bedtime), PRN for sleep, # 30 tab(s), Refills(s) 0, Pharmacy: [facility], 176.5, cm, 05/18/20 7:33:00 EST, Height/Length Dosing Start Date: 09/27/21 Status: Ordered Quantity: 30.0 Unit: tab(s) Repeat number: 1 Indications: Psychophysiologic insomnia; Start: 02-10-2017 End: 09-11-2021 take 1 tablet by mouth at bedtime as needed Zolpidem (Ambien Cr) 12.5 mg Tablet,Ext Release Multiphase Discontinued 12.5 MG PO Bedtime as needed for Insomnia March 30, 2017 12:00am September 11, 2021 8:45pm Comment on above: Take by mouth. Completed/Discontinued Medications Medication Drug Class(es) Dates Sig (Normalized) Sig (Original) acetaminophen 500 mg oral tablet (20 sources) Start: 05-03-2022 End: 06-02-2022 take 2 tablets by mouth every six hours as needed for pain Acetaminophen 500 mg Tablet Discontinued 1000 MG PO Q6H as needed for Pain May 03, 2022 12:00am June 02, 2022 9:48am On Hold: until taking hydrocodone Start: 05-03-2022 End: 06-02-2022 take 1000 mg by mouth every six hours Acetaminophen Discontinued 1000 MG PO Q6H May 02, 2022 11:00pm June 02, 2022 8:48am Start: 01-06-2022 End: 03-06-2022 take 2 tablets by mouth every eight hours as needed acetaminophen (TYLENOL) 500 mg tablet Take 2 tablets by mouth every 8 hours as needed for pain. 21 tablet 0 01/06/2022 03/06/2022 Discontinued take 1 tablet by michelle th every four hours Comment on above: Take 2 tablets by mo uth every 8 hours as needed for pain. acetaminophen 325 mg / oxyCODONE hydrochloride 5 mg oral tablet (20 sources) Opioid Agonist Start: 02-07-20 End: 09-12-19 take 1 tablet by mouth every six hours as needed for pain Oxycodone-Acetaminop hen (Percocet) 5-325 mg tablet Discontinued 1 TAB PO Q6H as needed for pain 8 February 07, 2020 September 11, 2021 5:13pm amitriptyline hydrochloride 25 mg oral tablet (4 sources) Tricyclic Antidepressant Start: 04-21-20 End: 08-18-19 amitriptyline (ELAVIL) 25 mg tablet once daily. 04/21/2017 08/18/2021 Discontinued End: 02-16-2024 amitriptyline (Elavil) 50 MG tablet Amitriptyline HCl 02/16/2024 Discontinued (Med list cleanup) anastrozole 1 mg oral tablet (20 sources) Aromatase Inhibitor Start: 07-14-2018 End: 09-11-2021 Anastrozole 1 mg Tablet Discontinued July 14, 2018 1:00am September 11, 2021 4:57pm Start: 07-14-2018 End: 09-11-2021 Anastrozole Discontinued TAB LET July 14, 2018 12:00am September 11, 2021 3:57pm End: 08-07-2021 ANASTROZOLE ORAL Take by michelle th. 08/07/2021 Discontinued (Course of therapy completed) aspirin 81 mg delayed release oral tablet (20 sources) Platelet Aggregation Inhibitor, Nonsteroidal Anti-inflammatory Drug Start: 05-06-2022 End: 10-30-2023 take 1 tablet by mouth once daily Aspirin 81 mg Tablet,Delayed Release (Dr/Ec) Discontinued 81 MG PO Daily May 06, 2022 1:00am October 30, 2023 8:29am End: 08-20-2021 aspirin 325 mg tablet Take 3 25 mg by mouth as needed. 08/20/2021 Discontinued take 1 tablet by michelle th once daily take 1 tablet by michelle th once daily Aspirin 81 81 MG 1 tablet Orally Once a day Active take 1 tablet by michelle th once daily take 1 tablet by michelle th once daily Aspirin EC 325 MG 1 tablet Orally Once a day for 30 day(s) Active take 1 tablet by michelle th every twenty-four hours Aspirin EC 325 MG 1 tablet Orally Once a day for 30 day(s) Active Atogepant (20 sources) Start: 10-30-2023 End: 12-10-2023 take 1 tablet by mouth once daily Atogepant (Qulipta) 60 mg tablet Discontinued 60 MG PO Daily October 29, 2023 11:00pm December 10, 2023 12:27pm Start: 10-30-2023 End: 12-10-2023 take 1 tablet by mouth once daily Atogepant (Qulipta) 60 mg tablet Discontinued 60 MG PO Daily October 30, 2023 12:00am December 10, 2023 1:27pm Start: 10-30-2023 take 1 tablet by michelle th once daily Atogepant (Qulipta) 60 mg tablet Active 60 MG PO Daily October 30, 2023 12:00am atorvastatin 80 mg oral tablet (20 sources) HMG-CoA Reductase Inhibitor Start: 01-25-2016 End: 11-11-2024 take 1 tablet by mouth once daily at bedtime Atorvastatin 80 mg tablet Discontinued 1 TAB PO Daily at bedtime March 30, 2017 12:00am September 30, 2023 5:45pm Comment on above: Take 80 mg by mouth daily at bedtime. baclofen 20 mg oral tablet (20 sources) gamma-Aminobutyr ic Acid-ergic Agonist Start: 12-21-2023 End: 05-18-2024 Baclofen 20 mg tablet Discontinued 0 .ROUTE .COMPLEX 90 December 21, 2023 8:12am May 18, 2024 11:44am TAKE 1 TABLET DAILY NEEDED Start: 08-27-2013 End: 12-21-2023 take 1 tablet by mouth once daily Baclofen 20 mg tablet Discontinued 20 MG PO Daily December 10, 2023 1:28pm December 21, 2023 8:13am Start: 08-27-2013 End: 07-22-2024 take 1 tablet by mouth twice daily baclofen 20 mg Tab 20 mg = 1 tab(s), Oral, BID, Refills(s) 0, Other (see comment) Start Date: 08/27/13 Status: Ordered Repeat number: 1 Comment on above: Take 20 mg by mouth daily at bedtime. Berb Sampson/herbal complex no.18 (BERBERINE-HERBAL COMB NO.18 ORAL) (8 sources) End: 11-27-2021 take 1000 mg by mouth once daily Berb Sampson/herbal complex no.18 (BERBERINE-HERBAL COMB NO.18 ORAL) Take 1,000 mg by mouth once daily. 11/27/2021 Discontinued take 1000 mg by mouth once daily Berb Sampson/herbal complex no.18 (BERBERINE-HERBAL COMB NO.18 ORAL) Take 1,000 mg by mouth once daily. 0 Active Comment on above: Take 1,000 mg by michelle th once daily. Botox SOLR (1 source) Botox SOLR every 90 days Quantity: 0 Refills: 0 Ordered: 24-Oct-2022 DO Active onabotulinumtoxina 200 unt injection (20 sources) Acetylcholine Release Inhibitor Start : 12-20 End: 01-31 inject 200 [IU] by subcutaneous injection once Onabotulinumtoxina (Botox) 200 unit recon soln Discontinued 200 UNIT SUBCUT Once 1 December 20, 2024 12:00am January 31, 2025 9:49am Start: 08-03-2024 End: 08-03-2024 onabotulinumtoxinA (Botox) i njection 155 Units Start: 08-03-2024 End: 08-03-2024 inject 155 [IU] by intramuscular injection once 155 Units, Intramuscular, Once, On Thu08/03/24 at 1430, For 1 dose, Charging context for this clinic-administered medication: Medically Necessary/Insurance Start: 06-02-2022 End: 05-18-2024 Onabotulinumtoxina (Botox) 1 00 unit Recon Soln Discontinued 0 .ROUTE .COMPLEX June 02, 2022 1:00am May 18, 2024 11:45am patient recieves injectios for migraine treatment every 3 months at neurology office onabotulinumtoxi nA (BOTOX INJ) Every 90 days Active End: 11-27-2021 onabotulinum toxin type A (B OTOX) 100 unit solr every 90 days for migraines 11/27/2021 Discontinued onabotulinumtoxi nA (BOTOX INJ) Every 90 days 0 Active Comment on above: every 90 days for mi graines bupivacaine hydrochloride 2.5 mg/ml injectable solution (6 sources) Amide Local Anesthetic Start: 10-27-2024 End: 10-27-2024 bupivacaine (Marcaine) 0.25 % injection 6 mL Start: 10-27-2024 End: 10-27-2024 6 mL, Injection, Once PRN Pr ocedure, Starting on Thu10/27/24 at 1020, For 1 dose Start: 02-16-2024 End: 02-16-2024 bupivacaine (Marcaine) 0.25 % injection 3 mL Start: 02-16-2024 End: 02-16-2024 3 mL, Injection, Once PRN Pr ocedure, Starting on Thu02/16/24 at 0820, For 1 dose CALCITONIN,SALMON,SYNTHETIC (CALCITONIN, SALMON, NASAL) (1 source) End: 08-18-2021 CALCITONIN,SALMON,SYNTHETIC (CALCITONIN, SALMON, NASAL) Use in the nose once daily. 08/18/2021 Discontinued calcium carbonate 118 mg / prasterone 10 mg oral tablet (20 sources) Start: 07-14-2018 End: 10-30-2023 take 1 tablet by mouth once daily Prasterone (Dhea)-Calcium Carb (Dhea) 10 mg-47 mg calcium Tablet Discontinued 10 TAB PO Daily July 14, 2018 1:00am October 30, 2023 8:49am cholecalciferol, vitamin D3, (VITAMIN D3 ORAL) (8 sources) End: 11-27-2021 take 125 ug by mouth once daily cholecalciferol, vitamin D3, (VITAMIN D3 ORAL) Take 125 mcg by mouth once daily. 11/27/2021 Discontinued take 125 ug by mouth once daily cholecalciferol, vitamin D3, (VITAMIN D3 ORAL) Take 125 mcg by mouth once daily. 0 Active Comment on above: Take 125 mcg by mout h once daily. CHROM GREGORIO/BRINDAL MORRIS (GARCINIA CAMBOGIA ORAL) (1 source) End: 08-07-19 CHROM GREGORIO/BRINDAL MORRIS (GARCINIA CAMBOGIA ORAL) Take by mouth once daily. 08/07/2021 Discontinued (Course of therapy completed) chromium picolinate 0.2 mg / gamboge 500 mg oral tablet (20 sources) Start: 03-30-20 17 End: 05-03-20 take 200-500 tablets by mouth once daily Chromium-Brindal Morris (Garcinia Cambogia) 200-500 mcg-mg Tablet Discontinued 1 TAB PO Daily March 30, 2017 12:00am May 03, 2022 3:13pm clindamycin 150 mg oral capsule (20 sources) Lincosamide Antibacterial Start: 09-04-19 23 End: 08-19-19 24 take 3 capsules by mouth every eight hours Clindamycin Hcl 150 mg capsule Discontinued 450 MG PO Q8H 63 September 03, 2022 1:00am August 19, 2023 1:02pm Start: 09-03-2022 End: 08-19-2023 take 450 mg by mouth every eight hours Clindamycin Hcl Discontinued 450 MG PO Q8H 63 September 03, 2022 12:00am August 19, 2023 [...] uth three times daily for 7 days. COMPOUNDED PRESCRIPTION (2 sources) End: 08-07-2021 COMPOUNDED PRESCRIPTION Clor-Rite 100mg daily. 08/07/2021 Discontinued (Course of therapy completed) End: 08-07-2021 COMPOUNDED PRESCRIPTION Hydr oxycut once daily. 08/07/2021 Discontinued (Course of therapy completed) dicyclomine hydrochloride 20 mg oral tablet (20 sources) Anticholinergic Start: 08-11-2017 take 1 tablet by mouth four times daily as needed dicyclomine 20 mg Tab 20 mg = 1 tab(s), Oral, QID, PRN cramps, Refills(s) 0, Indigestion Start Date: 08/11/17 Status: Ordered Repeat number: 1 Start: 08-18-2016 End: 12-10-2023 take 1 tablet by mouth once daily in the morning Dicyclomine 20 mg tablet Discontinued 20 MG PO Every morning July 14, 2018 1:00am December 10, 2023 1:38pm take 2 capsules by m outh four times daily as needed dicyclomine (BENTYL) 10 mg capsule Take 20 mg by mouth as needed. 4 times daily as needed Active Dicyclomine HCl 20 MG CAPS TAKE 1 CAPSULE 4 TIMES DAILY. Quantity: 0 Refills: 0 Ordered: 16-Jul-2022 DO Active Comment on above: Take 20 mg by mouth as needed. 4 times daily as needed doxepin hydrochloride 10 mg oral capsule (20 sources) Tricyclic Antidepressant Start: 08-18-19 End: 11-03-19 take 1 capsule by mouth once daily at bedtime Doxepin 10 mg capsule Discontinued 10 MG PO Daily at bedtime October 21, 2024 1:22pm November 02, 2024 9:27am Start: 04-25-2024 End: 08-18-2024 Doxepin 10 mg capsule Discon tinued 0 .ROUTE .COMPLEX April 25, 2024 3:57pm August 18, 2024 10:41am TAKE 1 CAPSULE DAILY AT BEDTIME Start: 04-25-2024 End: 08-18-2024 Doxepin 10 mg capsule Discon tinued 0 .ROUTE .COMPLEX April 25, 2024 3:57pm August 18, 2024 10:41am TAKE 1 CAPSULE DAILY AT BEDTIME Start: 04-25-2024 End: 08-18-2024 Doxepin 10 mg capsule Discon tinued 0 .ROUTE .COMPLEX April 25, 2024 2:57pm August 18, 2024 9:41am TAKE 1 CAPSULE DAILY AT BEDTIME Start: 04-25-2024 Doxepin 10 mg capsule Active 0 .ROUTE .COMPLEX April 25, 2024 2:57pm TAKE 1 CAPSULE DAILY AT BEDTIME Start: 04-25-2024 Doxepin Active 0 .ROUTE .COMPLEX April 25, 2024 2:57pm TAKE 1 CAPSULE DAILY AT BEDTIME Start: 12-10-2023 End: 04-25-2024 take 1 capsule by mouth once daily at bedtime Doxepin 10 mg capsule Discontinued 10 MG PO Daily at bedtime December 10, 2023 1:31pm April 25, 2024 3:57pm Start: 10-08-2023 End: 12-10-2023 Doxepin 10 mg capsule Discon tinued 0 .ROUTE .COMPLEX October 08, 2023 1:27pm December 10, 2023 1:38pm TAKE 1 CAPSULE DAILY AT BEDTIME Start: 10-08-2023 End: 12-10-2023 Doxepin 10 mg capsule Discon tinued 0 .ROUTE .COMPLEX October 08, 2023 1:27pm December 10, 2023 1:38pm TAKE 1 CAPSULE DAILY AT BEDTIME Start: 10-08-2023 End: 12-10-2023 Doxepin 10 mg capsule Discon tinued 0 .ROUTE .COMPLEX October 08, 2023 12:27pm December 10, 2023 12:38pm TAKE 1 CAPSULE DAILY AT BEDTIME Start: 10-08-2023 End: 12-10-2023 Doxepin Discontinued 0 .ROUT E .COMPLEX October 08, 2023 12:27pm December 10, 2023 12:38pm TAKE 1 CAPSULE DAILY AT BEDTIME Start: 10-08-2023 End: 12-10-2023 Doxepin Discontinued 0 .ROUT E .COMPLEX October 08, 2023 1:27pm December 10, 2023 1:38pm TAKE 1 CAPSULE DAILY AT BEDTIME Start: 10-08-2023 Doxepin Active 0 .ROUTE .COMPLEX October 08, 2023 1:27pm TAKE 1 CAPSULE DAILY AT BEDTIME Start: 10-08-2023 End: 10-08-2023 take 1 capsule by mouth once daily at bedtime take 2 tablets by mo uth once daily at bedtime doxepin capsule 10 mg Take 10 mg by mouth daily at bedtime. Takes 2 tabs at bedtime Active Comment on above: Take 10 mg by mouth daily at bedtime. Takes 2 tabs at bedtime FIBER, PSYLLIUM HUSK, ORAL (1 source) End: 2 FIBER, PSYLLIUM HUSK, ORAL Take by mouth once daily. 08/07/2021 Discontinued (Course of therapy completed) Fish Oil OIL (1 source) Fish Oil OIL 1 T AB DAILY Quantity: 0 Refills: 0 Ordered: 24-Oct-2022 DO Active fluticasone propionate 0.05 mg/actuat metered dose nasal spray (20 sources) Corticosteroid Start: End: take 2 spray(s) nasal route once daily Fluticasone Propionate 50 mcg/actuation spray,suspension Discontinued 0 .ROUTE .[facility] 48 January 30, 2025 9:04am January 31, 2025 9:54am USE 2 SPRAYS IN EACH NOSTRIL ONCE DAILY Start: 08-18-2024 End: 01-30-2025 take 2 spray(s) nasal route once daily Start: 02-01-2024 End: 08-18-2024 take 2 spray(s) nasal route once daily Fluticasone Propionate 50 mcg/actuation spray,suspension Discontinued 0 .ROUTE .COMPLEX 48 February 01, 2024 8:50am August 18, 2024 10:42am USE 2 SPRAYS IN EACH NOSTRIL ONCE DAILY Start: 04-15-2022 take 1 spray(s) nasa l route once daily Fluticasone Propionate 50 MCG/ACT Nasal Suspension USE 1 SPRAY IN EACH NOSTRIL ONCE DAILY. Quantity: 0 Refills: 0 Ordered: 07-Jun-2022 DO Start : 15-Apr-2022 Active Start: 03-30-2017 End: 02-01-2024 Fluticasone Propionate (Flon ase Allergy Relief) 50 mcg/actuation [place],Suspension Discontinued 2 SPRAY INTRANASAL Twice daily March 30, 2017 12:00am February 01, 2024 8:51am Start: 03-30-2017 Fluticasone Pr opionate (Flonase Allergy Relief) 50 mcg/actuation [place],Suspension Active 2 SPRAY INTRANASAL Daily March 29, 2017 11:00pm Start: 08-27-2013 fluticasone Na emily 0.05 mg/inh [place] 2 spray(s), Nasal, BID, Refill(s) 0, Sinus symptoms Start Date: 08/27/13 Status: Ordered Repeat number: 1 take 2 spray(s) nasa l route twice daily fluticasone (FLONASE) 50 mcg/actuation nasal spray Indications: Stroke (HCC) , Headache Use 2 Sprays in each nostril twice daily. Active take 2 spray(s) nasa l route once daily fluticasone (Flonase) 50 MCG/ACT nasal spray Administer 2 sprays into each nostril Daily Shake gently. Before first use, prime pump. After use, clean tip and replace cap. Active Fluticasone Prop ionate 50 MCG/ACT USE 2 SPRAYS IN EACH NOSTRIL ONCE DAILY Nasally Once a day for 90 days Active Comment on above: Use 2 Sprays in each nostril twice daily. fluticasone Nasal 0.05 mg/inh [place] (6 sources) Start: 08-27-2013 fluticasone Nasal 0.05 mg/inh [place] 2 spray(s), Nasal, BID, Refill(s) 0, Sinus symptoms Start Date: 08/27/13 Status: Ordered gabapentin 600 mg oral tablet (20 sources) Anti-epileptic Agent Start: 03-30-2017 End: 09-11-2021 Gabapentin (Neurontin) 600 mg Tablet Discontinued 600 MG PO 1 to 2 times per day March 30, 2017 12:00am September 11, 2021 7:14pm Start: 12-12-2016 End: 08-07-2021 Neurontin 600 MG 1 tablet Or ally Three times a day. NIGHTTIME A HALF Nov, Active End: 08-07-2021 gabapentin (NEURONTIN) 100 m g capsule Take 600 mg by mouth daily at bedtime. 08/07/2021 Discontinued (Course of therapy completed) hydrOXYzine hydrochloride 25 mg oral tablet (1 source) Antihistamine End: 08-07-2021 take 1 tablet by mouth every eight hours as needed hydrOXYzine HCl (ATARAX) 25 mg tablet Take 25 mg by mouth three times daily as needed. 08/07/2021 Discontinued (Course of therapy completed) ibuprofen 800 mg oral tablet (20 sources) Nonsteroidal Anti-inflammatory Drug Start: 05-03-2022 End: 05-06-2022 take 1 tablet by mouth three times daily Ibuprofen 800 mg Tablet Discontinued 800 MG PO Three times daily May 03, 2022 12:00am May 06, 2022 3:56pm Start: 04-14-2022 End: 07-13-2022 take 1 tablet by mouth every eight hours as needed ibuprofen (MOTRIN) 800 mg tablet Take 1 tablet by mouth every 8 hours as needed for pain. 200 tablet 0 04/14/2022 07/13/2022 Active Start: 07-14-2018 End: 09-11-2021 take 1 tablet by mouth three times daily as needed for pain Ibuprofen 800 mg Tablet Discontinued 800 MG PO Three times daily as needed for Pain July 14, 2018 1:00am September 11, 2021 5:10pm Comment on above: Take 1 tablet by michelle th every 8 hours as needed for pain. 24 hr isosorbide mononitrate 30 mg extended release oral tablet (20 sources) Nitrate Vasodilator Start: End: take 1 tablet by mouth every twenty-four hours Isosorbide Mononitrate 30 mg tablet extended release 24 hr Discontinued MG PO October 30, 2023 12:00am December 10, 2023 1:38pm FreeTextSig: Oral; Note: Source Status: Taking; Qty: 90 Tablet; Provider: Andrzej Start: 07-16-2022 End: 10-21-2025 take 1 tablet by mouth once daily, then take 1 tablet by mouth every twenty-four hours Isosorbide Mononitrate 30 mg tablet extended release 24 hr Discontinued 30 MG PO Daily 30 November 02, 2024 9:26am January 31, 2025 9:54am levomefolate (20 sources) Start: 07-14-2018 End: 09-11-2021 Levomefolate Calcium 7.5 mg Tablet Discontinued July 14, 2018 1:00am September 11, 2021 5:11pm Start: 07-14-2018 End: 09-11-2021 Levomefolate Calcium 7.5 mg Tablet Discontinued TABLET July 14, 2018 1:00am September 11, 2021 5:11pm Start: 07-14-2018 End: 09-11-2021 Levomefolate Calcium 7.5 mg Tablet Discontinued TABLET July 14, 2018 12:00am September 11, 2021 4:11pm Start: 07-14-2018 End: 09-11-2021 Levomefolate Calcium Discont inued TABLET July 14, 2018 12:00am September 11, 2021 4:11pm Start: 07-14-2018 End: 09-11-2021 Levomefolate Calcium Discont inued TABLET July 14, 2018 1:00am September 11, 2021 5:11pm mirtazapine 30 mg oral tablet (20 sources) Start: 09-11-2021 End: 06-02-2022 take 1 tablet by mouth once daily Mirtazapine 30 mg tablet Discontinued 30 MG PO Daily September 11, 2021 12:00am June 02, 2022 9:51am take 2 tablets by [facility] every twenty-four hours Mirtazapine 15 MG 2 tablet at bedtime Orally Once a day for 30 day(s) Active morphine sulfate 15 mg oral tablet (20 sources) Opioid Agonist Start: 09-03-2022 End: 08-19-2023 take 7.5 mg by mouth every six hours as needed for pain Morphine 15 mg tablet Discontinued 7.5 MG PO Q6H as needed for pain 4 September 03, 2022 August 19, 2023 1:04pm Start: 09-03-2022 End: 08-19-2023 take 7.5 mg by mouth every six hours Morphine Discontinued 7.5 MG PO Q6H 4 3 September 03, 2022 August 19, 2023 12:04pm Multi Vitamin TABS (1 source) Multi Vitamin TA BS TAKE 1 TABLET DAILY. Quantity: 0 Refills: 0 Ordered: 24-Oct-2022 DO Active MULTIVITS-MINERALS/FA/LYCOPE N E (ONE-A-DAY MEN'S ORAL) (8 sources) End: 11-27-2021 MULTIVITS-MINERALS/FA/LYCOPE NE (ONE-A-DAY MEN'S ORAL) Take by mouth. 11/27/2021 Discontinued MULTIVITS-MINERA LS/FA/LYCOPENE (ONE-A-DAY MEN'S ORAL) Take by mouth. 0 Active Comment on above: Take by mouth. nitroglycerin 0.4 mg sublingual tablet (20 sources) Nitrate Vasodilator Start: 10-30-2023 End: 06-14-2025 Nitroglycerin 0.4 mg tablet, sublingual Discontinued 0.4 MG SUBLINGUAL Q5M as needed for chest pain October 30, 2023 12:00am February 02, 2025 12:34pm FreeTextSig: Sublingual; Note: Source Status: Taking; Qty: 25 Tablet; Provider: Andrzej Start: 10-30-2023 Nitroglycerin Active MG SUBLINGUAL October 29, 2023 11:00pm FreeTextSig: Sublingual; Note: Source Status: Taking; Qty: 25 Tablet; Provider: Andrzej Start: 07-16-2022 Nitroglycerin 0.4 MG Sublingual Tablet Sublingual TAKE DIRECTED. Quantity: 25 Refills: 11 Ordered: 16-Jul-2022 Danisha Bran MD Start : 16-Jul-2022 Active nitroglycerin (N itrostat) 0.4 mg SL tablet Take as directed 0 Active Rossiter 8-Reo-Jjd-Fish Oil (Fi sh Oil) 1,000 mg (120 mg-180 mg) Capsule (20 sources) Start: 07-14-2018 End: 09-11-2021 Rossiter 8-Ydu-Awj-Fish Oil (Fi sh Oil) 1,000 mg (120 mg-180 mg) Capsule Discontinued July 14, 2018 12:00am September 11, 2021 4:13pm Start: 07-14-2018 End: 09-11-2021 Rossiter 3-Akd-Fle-Fish Oil (Fi sh Oil) 1,000 mg (120 mg-180 mg) Capsule Discontinued July 14, 2018 1:00am September 11, 2021 5:13pm Rossiter-3 Fatty Acids-Vitamin E (FISH OIL) 1,000 mg cap (1 source) End: 08-07-2021 Rossiter-3 Fatty Acids-Vitamin E (FISH OIL) 1,000 mg cap Take 1 capsule by mouth. 08/07/2021 Discontinued (Course of therapy completed) Omeprazole 40 mg capsule,del ayed release(DR/EC) (20 sources) Start: 05-02-2024 End: 08-18-2024 Omeprazole 40 mg capsule,delayed release(DR/EC) Discontinued 0 .ROUTE .COMPLEX May 02, 2024 3:20pm August 18, 2024 10:47am TAKE 1 CAPSULE DAILY 30 MINUTES BEFORE MORNING MEAL Start: 05-02-2024 End: 08-18-2024 Omeprazole 40 mg capsule,del ayed release(DR/EC) Discontinued 0 .ROUTE .COMPLEX May 02, 2024 2:20pm August 18, 2024 9:47am TAKE 1 CAPSULE DAILY 30 MINUTES BEFORE MORNING MEAL Start: 05-02-2024 Omeprazole 40 mg capsule,delayed release(DR/EC) Active 0 .ROUTE .COMPLEX May 02, 2024 2:20pm TAKE 1 CAPSULE DAILY 30 MINUTES BEFORE MORNING MEAL Start: 11-03-2023 End: 12-10-2023 Omeprazole 40 mg capsule,del ayed release(DR/EC) Discontinued 0 .ROUTE .COMPLEX November 03, 2023 3:32pm December 10, 2023 1:38pm TAKE 1 CAPSULE DAILY 30 MINUTES BEFORE MORNING MEAL Start: 11-03-2023 End: 12-10-2023 Omeprazole 40 mg capsule,del ayed release(DR/EC) Discontinued 0 .ROUTE .COMPLEX November 03, 2023 2:32pm December 10, 2023 12:38pm TAKE 1 CAPSULE DAILY 30 MINUTES BEFORE MORNING MEAL OTC NUTRITIONAL SUPPLEMENT (16 sources) End: 11-27-2021 OTC NUTRITIONAL SUPPLEMENT o nce daily. Tumeric 500 mg x2 11/27/2021 Discontinued End: 11-27-2021 OTC NUTRITIONAL SUPPLEMENT 5 00 mg once daily. Curcumin 11/27/2021 Discontinued OTC NUTRITIONAL SUPPLEMENT once daily. Tumeric 500 mg x2 0 Active OTC NUTRITIONAL SUPPLEMENT 500 mg once daily. Curcumin 0 Active Comment on above: once daily. Tumeric 500 mg x2 500 mg once daily. C urcumin OTC PRODUCT (18 sources) End: 08-07-2021 OTC PRODUCT once daily. Tinnitus 911 : 1 tab 08/07/2021 Discontinued (Course of therapy completed) End: 09-16-2021 OTC PRODUCT once daily. Lept itox : 2 tabs 09/16/2021 Discontinued (Discontinued by Patient) End: 11-27-2021 OTC PRODUCT 350 mg once chelsea y. Milk thistle 11/27/2021 Discontinued End: 11-27-2021 OTC PRODUCT 315 mg daily at bedtime. Green Tea 11/27/2021 Discontinued OTC PRODUCT 350 mg once daily. Milk thistle 0 Active OTC PRODUCT 315 mg daily at bedtime. Green Tea 0 Active Comment on above: 350 mg once daily. M ilk thistle 315 mg daily at bedt larry. Green Tea PEPPERMINT OIL (IBGARD ORAL) (1 source) End: 08-07-19 PEPPERMINT OIL (IBGARD ORAL) Take by mouth. 08/07/2021 Discontinued (Course of therapy completed) phentermine hydrochloride 37.5 mg oral capsule (1 source) Sympathomimetic Amine Anorectic End: 09-13-19 take 1 capsule by mouth once daily Phentermine HCl 37.5 mg capsule Take 37.5 mg by mouth once daily. 09/12/2021 Discontinued (Patient chooses alternative therapy) Potassium Chloride (Klor-Con M20) 20 mEq tablet,ER particles/crystals (20 sources) Start: 05-02-20 End: 08-18-19 25 Potassium Chloride (Klor-Con M20) 20 mEq tablet,ER particles/crystals Discontinued 0 .ROUTE .COMPLEX May 02, 2024 3:19pm August 18, 2024 10:47am TAKE 1 TABLET DAILY WITH FOOD Start: 05-02-2024 End: 08-18-2024 Potassium Chloride (Klor-Con M20) 20 mEq tablet,ER particles/crystals Discontinued 0 .ROUTE .COMPLEX May 02, 2024 2:19pm August 18, 2024 9:47am TAKE 1 TABLET DAILY WITH FOOD Start: 05-02-2024 Potassium Chlo ride (Klor-Con M20) 20 mEq tablet,ER particles/crystals Active 0 .ROUTE .COMPLEX May 02, 2024 2:19pm TAKE 1 TABLET DAILY WITH FOOD Start: 11-24-2023 End: 12-10-2023 Potassium Chloride (Klor-Con M20) 20 mEq tablet,ER particles/crystals Discontinued 0 .ROUTE .COMPLEX November 24, 2023 3:25pm December 10, 2023 12:38pm TAKE 1 TABLET DAILY WITH FOOD Start: 11-24-2023 End: 12-10-2023 Potassium Chloride (Klor-Con M20) 20 mEq tablet,ER particles/crystals Discontinued 0 .ROUTE .COMPLEX November 24, 2023 4:25pm December 10, 2023 1:38pm TAKE 1 TABLET DAILY WITH FOOD Start: 11-24-2023 Potassium Chlo ride (Klor-Con M20) 20 mEq tablet,ER particles/crystals Active 0 .ROUTE .COMPLEX November 24, 2023 4:25pm TAKE 1 TABLET DAILY WITH FOOD promethazine hydrochloride 25 mg oral tablet (20 sources) Phenothiazine Start: 04-23-2022 take 1 tablet by mouth three times daily as needed Promethazine HCl - 25 MG Oral Tablet TAKE 1 TABLET 3 TIMES DAILY NEEDED. Quantity: 0 Refills: 0 Ordered: 27-May-2022 DO Start : 23-Apr-2022 Active Start: 07-14-2018 End: 10-30-2023 Promethazine 12.5 mg Tablet Discontinued 12.5 MG PO .as needed as needed for nausea and vomiting July 14, 2018 1:00am October 30, 2023 8:52am Start: 07-14-2018 take 25 mg by mouth once daily Promethazine Active 25 MG PO Daily July 14, 2018 12:00am Start: 07-14-2018 take 25 mg by mouth twice chelsea y Promethazine Active 25 MG PO Twice daily July 14, 2018 12:00am Start: 01-25-2016 End: 12-16-2023 take 1 tablet by mouth every six hours as needed for nausea Promethazine 25 mg tablet Discontinued 25 MG PO as needed October 30, 2023 12:00am November 03, 2023 3:32pm FreeTextSi tablet as needed nausea Orally every 6 hrs; Note: Source Status: Taking; Refills: 1; Qty: 90 Tablet; Provider: Bonifacio Prieto Start: 01-25-2016 take 25 mg by mouth once daily as needed for nausea promethazine 25 mg, Oral, Daily, PRN as needed for nausea/vomiting, Refills(s) 0, Nausea/Vomiting Start Date: 01/25/16 Status: Ordered End: 11-27-2021 promethazine (PHENERGAN) 25 mg tablet Take 25 mg by mouth as needed. 11/27/2021 Discontinued Comment on above: Take 25 mg by mouth as needed. psyllium 400 mg oral capsule (13 sources) Start: 03-30-2017 End: 09-11-2021 Psyllium Husk (Fiber (Psyllium Husk)) 0.4 gram Capsule Discontinued 1 TAB PO Daily March 30, 2017 12:00am September 11, 2021 8:40pm PSYLLIUM PO Take by mouth Active Psyllium Husk (Fiber (Psylli um Husk)) 0.4 gram Capsule (20 sources) Start: 03-30-2017 End: 09-11-2021 Psyllium Husk (Fiber (Psylli um Husk)) 0.4 gram Capsule Discontinued 1 TAB PO Daily March 29, 2017 11:00pm September 11, 2021 7:40pm Start: 03-30-2017 End: 09-11-2021 Psyllium Husk (Fiber (Psylli um Husk)) 0.4 gram Capsule Discontinued 1 TAB PO Daily March 30, 2017 12:00am September 11, 2021 8:40pm QUEtiapine 25 mg oral tablet (20 sources) Atypical Antipsychotic Start: 01-15-2022 End: 10-30-2023 take 1 tablet by mouth once daily at bedtime Quetiapine 25 mg tablet Discontinued 25 MG PO Daily at bedtime June 02, 2022 1:00am October 30, 2023 8:51am Start: 01-15-2022 End: 07-22-2024 QUEtiapine Fumarate 25 MG Or al Tablet TAKE 1 TABLET 2-3 TIMES DAILY. Quantity: 0 Refills: 0 Ordered: 15-Jan-2022 DO Start : 15-Jan-2022 Active Start: 11-27-2021 take 1 tablet by michelle th every twelve hours as needed QUEtiapine (SEROQUEL) 25 mg tablet Take 1 tablet by mouth twice daily as needed (Delirium) for up to 5 days. 10 tablet 0 11/27/2021 Active Start: 09-22-2021 take 1 tablet by michelle th once daily at bedtime QUEtiapine (SEROQUEL) 50 mg tablet Take 1 tablet by mouth daily at bedtime. 14 tablet 0 09/22/2021 Active Comment on above: Take 1 tablet by michelle th daily at bedtime. Take 1 tablet by michelle th twice daily as needed (Delirium) for up to 5 days. TAKE ONE TABLET BY M OUTH EVERY NIGHT AT BEDTIME rizatriptan 10 mg oral tablet (20 sources) Serotonin-1b and Serotonin-1d Receptor Agonist Start: 12-22-2017 Maxalt 10 mg Tab 10 mg = 1 tab(s), Oral, Daily, PRN Migraine headache, may repeat dose once in 2 hours, Refills(s) 0, Migraine headache Start Date: 12/22/17 Status: Ordered End: 08-18-2021 take 1 tablet by mouth three times daily as needed rizatriptan (MAXALT) 10 mg tablet Take 10 mg by mouth as needed. 3 times daily as needed 08/18/2021 Discontinued take 1 tablet by michelle th every two hours as needed, then take 3 tablets by mouth every twenty-four hours as needed Rizatriptan Benzoate 10 MG Oral Tablet TAKE 1 TABLET AT ONSET OF HEADACHE. MAY REPEAT EVERY 2 HOURS NEEDED. MAXIMUM 3 TABLETS IN 24 HOURS. Quantity: 0 Refills: 0 Ordered: 24-Oct-2022 DO Active selenium 200 mcg tablet (8 sources) End: 11-27-2021 take 1 tablet by mouth once daily at bedtime selenium 200 mcg tablet Take 1 tablet by mouth daily at bedtime. 11/27/2021 Discontinued take 1 tablet by michelle th once daily at bedtime selenium 200 mcg tablet Take 1 tablet by mouth daily at bedtime. 0 Active Comment on above: Take 1 tablet by michelle th daily at bedtime. sulfamethoxazole 800 mg / trimethoprim 160 mg oral tablet (20 sources) Dihydrofolate Reductase Inhibitor Antibacterial, Sulfonamide Antimicrobial Start: 08-18-19 End: 09-29-19 take 1 tablet by mouth twice daily Sulfamethoxazole-Tr imethoprim (Bactrim Ds) 800-160 mg tablet Discontinued 1 TAB PO Twice daily 17 04August 18, 2024 1:00am September 28, 2024 2:56pm Start: 01-26-2024 End: 07-28-2024 take 1 tablet by mouth twice daily Sulfamethoxazole-Trimethoprim (Bactrim D s) 800-160 mg tablet Discontinued 1 TAB PO Twice daily 20 January 26, 2024 12:00am July 28, 2024 2:18pm Start: 12-18-2022 take 1 tablet by michelle th every twelve hours Bactrim DS 800-160 MG 1 tablet Orally Tw ice a day for 10 days Mar, Active [...] michelle th twice daily for 14 days. TESTOSTERONE INTRAMUSC. (8 sources) End: 11-28-19 inject 300 mg by intramuscular injection every other week TESTOSTERONE INTRAMUSC. Inject 300 mg intramuscularly every other week. 11/27/2021 Discontinued inject 300 mg by int ramuscular injection every other week TESTOSTERONE INTRAMUSC. Inject 300 mg intramuscularly every other week. 0 Active Comment on above: Inject 300 mg intram uscularly every other week. Triamcinolone (20 sources) Corticosteroid Start: 12-24-19 16 KENALOG - 10 mg Nov, 80 mg ubidecarenone (ULTRA COQ10 ORAL) (8 sources) End: 11-28-19 take 50 mg by mouth once daily ubidecarenone (ULTRA COQ10 ORAL) Take 50 mg by mouth once daily. 11/27/2021 Discontinued take 50 mg by mouth once daily u bidecarenone (ULTRA COQ10 ORAL) Take 50 mg by mouth once daily. 0 Active Comment on above: Take 50 mg by mouth once daily. Vancomycin (5 sources) Glycopeptide Antibacterial Start: 022 End: take 1.5 g intravenously every twelve hours vancomycin (VANCOCIN) 1.5 g in D5W 250 mL Inject 250 mL intravenously q 12 [place]. [id number] mL 0 09/22/2021 10/24/2021 Start: 09-22-2021 End: 10-24-2021 take 1.5 g intravenously every twelve hours vancomycin (VANCOCIN) 1.5 g in D5W 250 mL Inject 250 mL intravenously q 12 [place]. [id number] mL 0 09/22/2021 10/24/2021 Active Comment on above: Inject 250 mL intrav enously q 12 HR. Vitamin B Complex (8 sources) End: 2 take 1 tablet by mouth once daily vitamin b complex tab Take 1 tablet by mouth once daily. 5000 mcg 11/27/2021 Discontinued take 1 tablet by mouth once chelsea y vitamin b complex tab Take 1 tablet by mouth once daily. 5000 mcg 0 Active Comment on above: Take 1 tablet by michelle th once daily. 5000 mcg Vitamin B Complex Oral Capsule (1 source) Vitamin B Comple x Oral Capsule as directed Quantity: 0 Refills: 0 Ordered: 24-Oct-2022 DO Active Vitamin B12 1000 mcg Tab (15 sources) Start: 01-25-2016 take 1 tablet by mouth once daily Vitamin B12 1000 mcg Tab 1,000 microgram = 1 tab(s), Oral, Daily, Refills(s) 0, Muscle pain Start Date: 01/25/16 Status: Ordered Repeat number: 1 Start: 01-25-2016 take 1 tablet by michelle th once daily Vitamin B12 1000 mcg Tab 1,000 microgram = 1 tab(s), Oral, Daily, Refills(s) 0, Muscle pain Start Date: 01/25/16 Status: Ordered Vitamin D TABS (1 source) Vitamin D TABS T SRINIVAS 1 TABLET DAILY. Quantity: 0 Refills: 0 Ordered: 24-Oct-2022 DO Active Vitamin D3 1000 intl units oral tablet (1 source) Start: 01-25-2016 take 2 tablets by mouth once daily Vitamin D3 1000 intl units oral tablet 2,000 International_Unit = 2 tab(s), Oral, Daily, # 30 tab(s), Refills(s) 0, Prophylaxis Start Date: 01/25/16 Status: Ordered Problems Active Problems Problem Classification Problem Date Documented Date Episodic/Chronic Abdominal pain (20 sources) Abdominal pain; Translations: [Unspecified abdominal pain] Onset: 1 Resolved: 1 Episodic Acute and unspecified renal failure (20 sources) Renal failure syndrome; Translations: [Unspecified kidney failure] Chronic Acute and unspecified renal failure (20 sources) Injury of kidney; Translations: [Acute kidney failure, unspecified] 09-11-2021 Episodic Acute cerebrovascular disease (20 sources) Cerebrovascular accident; Translations: [Thrombotic stroke] Onset: 8 Resolved: 2 01-25-2016 Chronic Comment on above: 2013- some residual thinking and talking difficulty, migraines since 2013 Adjustment disorders (20 sources) Adjustment disorder with anxious mood; Translations: [Adjustment disorder with anxiety] Onset: 5 Resolved: 2 08-18-2021 Chronic Administrative/social admission (1 source) Other specified counseling Episodic Anxiety disorders (20 sources) Panic disorder; Translations: [Panic disorder [episodic paroxysmal anxiety]] Chronic Calculus of urinary tract (20 sources) Kidney stone; Translations: [Calculus of kidney] Episodic Comment on above: lithotripsy Chronic kidney disease (20 sources) Chronic kidney disease stage 3; Translations: [CKD (chronic kidney disease) stage 3, GFR 30-59 ml/min] Onset: 2 08-18-2021 Chronic Chronic obstructive pulmonary disease and bronchiectasis (1 source) Chronic obstructive lung disease 12-05-2024 Chronic Coma; stupor; and brain damage (20 [...] Episodic Coronary atherosclerosis and other heart disease (20 sources) Angina pectoris; Translations: [Other and unspecified angina pectoris] Onset: 3 08-28-2023 Chronic Disorders of lipid metabolism (20 sources) Familial hypercholesterolemia; Translations: [Mixed hyperlipidemia] Onset: 2 Resolved: 2 07-31-2019 Chronic Diverticulosis and diverticulitis (20 sources) Diverticular disease; Translations: [Diverticulosis of intestine, part unspecified, without perforation or abscess without bleeding] 08-26-2023 Chronic E Codes: Adverse effects of medical drugs (2 sources) Adverse effect of other [id number] drugs, initial encounter Onset: 2 Resolved: 2 [...] unspecified, not intractable, without status migrainosus] Onset: 4 Resolved: 2 01-25-2016 Chronic Headache; including migraine (20 sources) Headache; Translations: [Headache] Onset: 4 Resolved: 2 08-18-2021 Episodic Hemorrhoids (18 sources) Hemorrhoids; Translations: [Unspecified hemorrhoids] Episodic Hepatitis (1 source) Nonalcoholic steatohepatitis (PEARL); Translations: [Nonalcoholic steatohepatitis (PEARL)] Onset: 4 Chronic Hyperplasia of prostate (20 sources) Benign prostatic hyperplasia; Translations: [Benign prostatic hypertrophy without outflow obstruction] Onset: 2 01-25-2016 Chronic Immunity disorders (1 source) 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; Translations: [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] Onset: 4 Chronic Immunizations and screening for infectious disease (1 source) Encounter for immunization Episodic Infective arthritis and osteomyelitis (except that caused by tuberculosis or sexually transmitted disease) (15 sources) Knee pyogenic arthritis 09-23-2021 Episodic Late effects of cerebrovascular disease (20 sources) Late effects of cerebrovascular disease; Translations: [Other sequelae of other cerebrovascular disease] Onset: 4 10-29-2023 Chronic Miscellaneous mental health disorders (20 sources) Chronic insomnia; Translations: [Psychophysiologic insomnia] Onset: 2 Resolved: 2 Chronic Mood disorders (20 sources) Depressive disorder; Translations: [Depression, unspecified] Onset: 8 01-25-2016 Chronic Mood disorders (20 sources) 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; Translations: [Mood disorder due to known physiological condition with mixed features] 10-30-2023 Episodic Nausea and vomiting (20 sources) Nausea; Translations: [Nausea] Onset: 2 Resolved: 2 Episodic Nonspecific chest pain (20 sources) Chest pain; Translations: [Chest pain, unspecified] 02-28-2020 Episodic Occlusion or stenosis of precerebral arteries (20 sources) Carotid artery stenosis; Translations: [Occlusion and stenosis of unspecified carotid artery] Onset: 4 10-29-2023 Chronic Open wounds of head; neck; and trunk (14 sources) Wound dehiscence 09-25-2021 Episodic Osteoarthritis (20 sources) Osteoarthritis of right knee joint; Translations: [Osteoarthritis of knee] 04-26-2019 Chronic Other aftercare (1 source) Patient encounter status; Translations: [Encounter for therapeutic drug level monitoring] Episodic Other aftercare (20 sources) Polypharmacy ; Translations: [Other keno terminal operator (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 therapy] 10-30-2023 Episodic Other aftercare (15 sources) correction (current) use of antibiotics; Translations: [Need for antibiotic prophylaxis for dental procedure] 05-06-2024 Episodic Other and ill-defined heart disease (20 sources) Heart disease; Translations: [Heart disease, unspecified] 12-05-2024 Chronic Other and ill-defined heart disease (2 [...] (2 sources) Polyp of colon Episodic Other and unspecified benign neoplasm (2 sources) Melanocytic nevi of trunk; Translations: [Benign neoplasm of skin of trunk, except scrotum] 10-31-2024 Episodic Other circulatory disease (1 source) History of transient ischemic attack; Translations: [Personal history of transient ischemic attack (TIA), and cerebral infarction without residual deficits] Onset: 2 Episodic Other circulatory disease (18 sources) History of cerebrovascular accident; Translations: [Personal history of transient ischemic attack (TIA), and cerebral infarction without residual deficits] 09-25-2021 Episodic Other circulatory disease (3 sources) [...] as traumatic] Episodic Other connective tissue disease (20 sources) Falls; Translations: [Repeated falls] 05-03-2022 Episodic Other connective tissue disease (7 sources) Repeated falls; Translations: [Other symptoms involving nervous and musculoskeletal systems] 05-03-2022 Episodic Other connective tissue disease (1 source) Other specified soft tissue disorders Episodic Other connective tissue disease (1 source) Pain in left arm Episodic Other connective tissue disease (3 sources) Medial epicondylitis, left elbow Episodic Other connective tissue disease (5 sources) [...] dyspepsia Onset: 2 Resolved: 2 Episodic Other ear and sense organ disorders (19 sources) Impacted cerumen; Translations: [Impacted cerumen, left ear] 10-30-2023 Episodic Other ear and sense organ disorders (6 sources) Impacted cerumen, left ear; Translations: [Impacted cerumen] 10-30-2023 Episodic Other ear and sense organ disorders (3 sources) Impacted cerumen in left ear; Translations: [Impacted cerumen, left ear] 10-30-2023 Episodic Other endocrine disorders (18 sources) Hypogonadotropic hypogonadism; Translations: [Hypopituitarism] Chronic Other endocrine disorders (18 sources) Hypotestosteronism; Translations: [Testicular hypofunction] Chronic Other endocrine disorders (4 sources) Male hypogonadism; Translations: [Testicular hypofunction] 04-01-2024 Chronic Other endocrine disorders (1 source) Hypopituitarism; Translations: [Hypopituitarism] Onset: 5 Chronic Other endocrine disorders (1 source) Disorder of endocrine system; Translations: [Endocrine disorder, unspecified] Onset: 2 Episodic Other gastrointestinal disorders (18 sources) Irritable bowel syndrome; Translations: [Irritable bowel syndrome without diarrhea] Chronic Other gastrointestinal disorders (18 sources) Heartburn; Translations: [Heartburn] Episodic Other gastrointestinal disorders (20 sources) Diarrhea, unspecified; Translations: [Diarrhea] Episodic Other gastrointestinal disorders (20 sources) Diarrhea; Translations: [Diarrhea, unspecified] 08-19-2023 Episodic Other gastrointestinal disorders (2 sources) Constipation, unspecified; Translations: [Constipation, unspecified] 10-31-2024 Episodic Other hematologic conditions (1 source) Other abnormality of red blood cells Episodic Other hereditary and degenerative nervous system conditions (20 sources) Restless legs; Translations: [Restless legs syndrome] Onset: 4 10-29-2023 Chronic Other infections; including parasitic (15 sources) Disorder due to infection 07-18-2016 Episodic Comment on above: Left knee wound Other inflammatory condition of skin (18 sources) Lichen simplex chronicus; Translations: [Lichen simplex chronicus] Episodic Other injuries and conditions due to external causes (1 source) Delayed healing of wound; Translations: [Other injury of unspecified body region, subsequent encounter] Episodic Other liver diseases (20 sources) Steatosis of liver; Translations: [Fatty (change of) liver, not elsewhere classified] 08-26-2023 Chronic Comment on above: Recent FibroScan fro m 06/12/2024 showed S3/F2 0-F1 changes despite greater than a 10% weight loss. Other liver diseases (20 sources) Fatty (change of) liver, not elsewhere classified; Translations: [Other chronic nonalcoholic liver disease] Chronic Other lower respiratory disease (1 source) Dyspnea 07-19-2019 Episodic Other lower respiratory disease (9 sources) Dyspnea on exertion; Translations: [Shortness of breath] Onset: 3 08-28-2023 Episodic Other lower respiratory disease (1 source) Snoring Episodic Other lower respiratory disease (2 sources) Shortness of breath; Translations: [Shortness of breath] Onset: 3 Episodic Other male genital disorders (18 sources) Impotence of organic origin; Translations: [Male erectile dysfunction, unspecified] Chronic Other male genital disorders (1 source) Disorder of male genital organ; Translations: [Other specified disorders of the male genital organs] Onset: 5 Episodic Other male genital disorders (2 sources) Cyst of epididymis; Translations: [Cyst of epididymis] Onset: 5 Episodic Other nervous system disorders (20 sources) Chronic [...] upper limb Chronic Other nervous system disorders (20 sources) Carpal tunnel syndrome; Translations: [Carpal tunnel syndrome, unspecified upper limb] Onset: 5 10-29-2023 Chronic Other nervous system disorders (20 sources) Cervical syndrome; Translations: [Cervical root disorders, not elsewhere classified] Onset: 4 10-29-2023 Chronic Other nervous system disorders (20 sources) Bilateral carpal tunnel syndrome; Translations: [Carpal tunnel syndrome, bilateral upper limbs] Onset: 4 10-29-2023 Chronic Other nervous system disorders (20 sources) Median neuropathy; Translations: [Other lesions of median nerve, unspecified upper limb] Onset: 4 10-29-2023 Chronic Other nervous system disorders (20 sources) Slurred speech; Translations: [Slurred speech] 05-03-2022 Episodic Other nervous system disorders (7 sources) Slurred speech; Translations: [Other speech disturbance] 05-03-2022 Episodic Other nervous system disorders (20 sources) Skin sensation disturbance; Translations: [Paresthesia of skin] Onset: 4 10-29-2023 Episodic Other nervous system disorders (3 sources) Abnormal reflex; Translations: [Abnormal reflex] 01-26-2024 Episodic Other nervous system disorders (6 sources) Hyperreflexia; Translations: [Abnormal reflex] 05-19-2024 Episodic Other non-traumatic joint disorders (1 source) Pain in right knee Episodic Other non-traumatic joint disorders (2 sources) Pain in left elbow Episodic Other nutritional; endocrine; and metabolic disorders (20 sources) Obesity; Translations: [Obesity, unspecified] Onset: 2 09-12-2021 Chronic Other nutritional; endocrine; and metabolic disorders (20 sources) Body mass index 30+ - obesity; Translations: [Body mass index (BMI) 37.0-37.9, adult] Onset: 5 Chronic Other nutritional; endocrine; and metabolic disorders [...] Translations: [Body mass index (BMI) 40.0-44.9, adult] 10-01-2023 Chronic Other nutritional; endocrine; and metabolic disorders (12 sources) Morbid (severe) obesity due to excess calories; Translations: [Morbid obesity] Onset: 2 Resolved: 2 Chronic Other nutritional; endocrine; and metabolic disorders (8 sources) Body mass index (BMI) 39.0-39.9, adult; Translations: [Body Mass Index 39.0-39.9, adult] Onset: 2 Resolved: 2 Chronic Other nutritional; endocrine; and metabolic disorders (20 sources) Metabolic syndrome X; Translations: [Metabolic syndrome] Chronic Other nutritional; endocrine; and metabolic disorders (7 sources) Obesity, unspecified Chronic Other nutritional; endocrine; and metabolic disorders (5 sources) Body mass index (BMI) 45.0-49.9, adult Chronic Other nutritional; endocrine; and metabolic disorders (6 sources) Metabolic syndrome Chronic Other nutritional; endocrine; and metabolic disorders (20 sources) Body mass index (BMI) 40.0-44.9, adult; Translations: [Body Mass Index 40.0-44.9, adult] Chronic Other nutritional; endocrine; and metabolic disorders (6 sources) Obese class I; Translations: [Body mass index (BMI) 31.0-31.9, adult] Chronic Other nutritional; endocrine; and metabolic disorders (1 source) Body mass index (BMI) 31.0-31.9, adult; Translations: [BMI 31.0-31.9,adult] Chronic Other screening for suspected conditions (not mental disorders or infectious disease) (14 sources) Hypotestosteronism 09-25-2021 Episodic Other skin disorders (18 sources) Dry skin; Translations: [Xerosis cutis] Episodic Other skin disorders (1 source) Impaired skin integrity; Translations: [Unspecified skin changes] Episodic Other skin disorders (1 source) Keloid scar; Translations: [Hypertrophic scar] Episodic Other skin disorders (3 sources) Disorder of the skin and subcutaneous tissue, unspecified; Translations: [Unspecified disorder of skin and subcutaneous tissue] 05-06-2024 Episodic Other upper respiratory disease (1 source) Seasonal allergic rhinitis; Translations: [Other seasonal allergic rhinitis] Onset: 2 Chronic Other upper respiratory disease (13 sources) Seasonal allergy 10-07-2021 Chronic Other upper respiratory disease (18 sources) Rhinitis; Translations: [Chronic rhinitis] Chronic Other upper respiratory disease (20 sources) Chronic rhinitis; Translations: [Chronic rhinitis] 10-30-2023 Chronic Other upper respiratory disease (19 sources) Chronic rhinitis; Translations: [Chronic rhinitis] Onset: 2 Resolved: 2 Chronic Other upper respiratory disease (20 sources) Allergic rhinitis; Translations: [Allergic rhinitis, unspecified] Chronic Other upper respiratory disease (3 sources) Allergic rhinitis, unspecified Chronic Other upper respiratory disease (1 source) Rhinitis medicamentosa; Translations: [Chronic rhinitis] Chronic Other upper respiratory infections (20 sources) Sinusitis; Translations: [Chronic sinusitis, unspecified] Chronic Other upper respiratory infections (12 sources) Acute sinusitis, unspecified; Translations: [Other acute sinusitis] Onset: 1 Resolved: 2 Episodic Peripheral and visceral atherosclerosis (15 sources) Arteriosclerotic vascular disease 07-31-2019 Chronic Residual codes; unclassified (20 sources) Sleep apnea; Translations: [Sleep apnea, unspecified] Onset: 2 01-25-2016 Chronic Comment on above: uses CPap Residual codes; unclassified (20 sources) Obstructive sleep apnea syndrome; Translations: [Obstructive sleep apnea (adult) (pediatric)] Onset: 8 09-11-2021 Chronic Comment on above: cpap at night Residual codes; unclassified (20 sources) Obstructive sleep apnea (adult) (pediatric); Translations: [Obstructive sleep apnea (adult)(pediatric)] Onset: 2 Resolved: 2 Chronic Residual codes; unclassified (20 sources) Continuous positive airway pressure ventilation treatment; Translations: [Dependence on other enabling machines and devices] Chronic Residual codes; unclassified (20 sources) Obstructive sleep apnea of adult; Translations: [Obstructive sleep apnea (adult) (pediatric)] 10-01-2023 Chronic Residual codes; unclassified (11 sources) Daytime somnolence; Translations: [Other hypersomnia] 08-01-2024 Chronic Residual codes; unclassified (6 sources) Other hypersomnia; Translations: [Hypersomnia, unspecified] 08-01-2024 Chronic Residual codes; unclassified (15 sources) Chronic back pain 07-31-2019 Episodic Residual codes; unclassified (1 source) Altered mental status; Translations: [Altered mental status, unspecified] Onset: 2 Episodic Residual codes; unclassified (18 sources) Prostate [...] not elsewhere classified Episodic Residual codes; unclassified (6 sources) Never smoked any substance; Translations: [Other [...] 09-11-2021 Episodic Skin and subcutaneous tissue infections (20 sources) Cellulitis; Translations: [Cellulitis, unspecified] 09-03-2022 Episodic Spondylosis; intervertebral disc disorders; other back problems (20 sources) Post-laminectomy syndrome; Translations: [Postlaminectomy syndrome, not elsewhere classified] Onset: 6 Resolved: 2 Chronic Comment on above: steroid injections, lumbar Spondylosis; intervertebral disc disorders; other back problems (20 sources) Backache; Translations: [Dorsalgia, unspecified] Onset: 4 Resolved: 2 Episodic Sprains and strains (20 sources) Strain of neck muscle; Translations: [Strain of muscle, fascia and tendon at neck level, initial encounter] 02-07-2020 Episodic Substance-related disorders (20 sources) Opioid dependence; Translations: [Opioid dependence, uncomplicated] Onset: 5 Resolved: 2 08-18-2021 Chronic Superficial injury; contusion (7 sources) Abrasion, right lower leg, initial encounter; Translations: [Abrasion, right lower leg, initial encounter] Onset: 5 12-12-2024 Episodic Transient cerebral ischemia (20 sources) Transient cerebral ischemia; Translations: [Transient cerebral ischemic attack, unspecified] Onset: 4 10-29-2023 Chronic Unclassified (1 source) LOW BACK PAIN, UNSPECIFIED; Translations: [LOW BACK PAIN, UNSPECIFIED] Onset: Viral infection (20 sources) Herpes labialis; Translations: [Herpesviral vesicular dermatitis] 01-25-2016 Episodic Past or Other Problems Problem Classification Problem Date Documented Da te Episodic/Chronic Deficiency and other anemia (20 sources) Anemia; Translations: [Anemia, unspecified] Onset: 01-04-2022 01-04-2022 Episodic Diabetes mellitus without complication (20 sources) Impaired glucose tolerance; Translations: [Impaired glucose tolerance (oral)] Onset: 07-23-2021 Resolved: 01-28-2022 Episodic Hypertension with complications and secondary hypertension (20 sources) Secondary hypertension; Translations: [Secondary hypertension, unspecified] Onset: 08-07-2021 Resolved: 08-07-2021 08-07-2021 Chronic Malaise and fatigue (4 sources) Other fatigue; Translations: [Other malaise and fatigue] Onset: 10-19-2024 05-06-2024 Episodic Other acquired deformities (20 sources) Lumbar spondylolisthesis; Translations: [Spondylolisthesis, lumbar region] Onset: 08-16-2021 Episodic Other acquired deformities (2 sources) Spondylolisthesis, lumbar region; Translations: [Spondylolisthesis of lumbar region] Onset: 08-16-2021 Episodic Other aftercare (10 sources) Other keno terminal operator (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 therapy; Translations: [Long-term (current) use of other medications] Onset: 07-23-2021 Resolved: 01-28-2022 Episodic Other connective [...] Onset: 08-18-2021 Episodic Other connective tissue disease (20 sources) Other symptoms and signs involving the musculoskeletal system; Translations: [Other musculoskeletal symptoms referable to limbs] Onset: 11-27-2021 11-27-2021 Episodic Other connective tissue disease (4 sources) Pain in right leg; Translations: [PAIN IN RIGHT LEG] Onset: 08-12-2022 Episodic Other connective tissue disease (20 sources) Fibromyalgia; Translations: [Fibromyalgia] Onset: 11-07-2014 10-29-2023 Episodic Other connective tissue disease (20 sources) Muscle pain; Translations: [Myalgia, unspecified site] Onset: 07-01-2017 10-29-2023 Episodic Other connective tissue disease (20 sources) Spasm; Translations: [Other muscle spasm] Onset: 11-07-2014 10-29-2023 Episodic Other fractures (20 sources) Pseudoarthrosis of spine; Translations: [Unspecified fracture of unspecified lumbar vertebra, subsequent encounter for fracture with nonunion] Onset: 12-08-2014 Resolved: 08-18-2021 12-31-2021 Episodic Other gastrointestinal disorders (1 source) Right lower quadrant abdominal swelling, mass and lump Onset: 05-09-2021 Resolved: 05-09-2021 Episodic Other male genital disorders (3 sources) Other specified disorders of the male genital organs; Translations: [Other specified disorders of male genital organs] Onset: 11-23-2024 10-31-2024 Episodic Other nervous system disorders (20 sources) Paresthesia; Translations: [Paresthesia of skin] Onset: 10-29-2023 10-29-2023 Episodic Other nutritional; endocrine; and metabolic disorders (1 source) Abnormal weight loss Onset: 01-28-2022 Resolved: 01-28-2022 Episodic Residual codes; unclassified (20 sources) Delirium; Translations: [Disorientation, unspecified] Onset: 09-15-2021 09-15-2021 Episodic Residual codes; unclassified (20 sources) Insomnia; Translations: [Insomnia, unspecified] Onset: 11-06-2014 10-29-2023 Episodic Residual codes; unclassified (1 source) Other specified postprocedural states Onset: 01-28-2022 Resolved: 01-28-2022 Episodic Respiratory failure; insufficiency; arrest (adult) (1 source) Respiratory failure; insufficiency; arrest (adult) Onset: 01-28-2022 Resolved: 01-28-2022 Unclassified (1 source) Low back pain, unspecified M54.50 Unclassified (2 sources) Never smoked tobacco; Translations: [Never a smoker] Unclassified (3 sources) Onset: 08-28-2023 Resolved: 01-26-2025 08-28-2023 Results Test Name Value Interpretation Reference Range Facility Hemoglobin [Mass/volume] in BloodOrdered By: Rosey Dubose on 02-28-2025 Hemoglobin (Bld) [Mass/Vol] 16.9 g/dL Normal 13.0-17.0 [facility] Comment on above: Result Comment: PERF ORMED BY: [place] [address] PATHOLOGIST INCIDENT MANAGER JAMAAL GOLDEN M.D. Performed By: #### C BC, BMP, A1C WT eA, HEPATIC, LIPID #### [place] [address] [place] #### IGG #### [facility] , PSA Total (Not a Screen)on 0 02-28-2025 PSA Total (Not a Screen) 0.140 ng/mL Normal 0.000-4.00 0 The Counts Include [facility] Comment on above: Result Comment: Seri al tumor marker results determined by assays using different manufacturers or methods may not be comparable. Counts Include [facility] Laboratory capacitor pack press operator and method: Catapult DXI, CHEMILUMINESCENT IMMUNOASSAY. PERFORMED BY: [place] [address] PATHOLOGIST INCIDENT MANAGER JAMAAL GOLDEN M.D. Performed By: #### C BC, BMP, A1C WTH eA, HEPATIC, LIPID #### [place] [address] [place] #### IGG #### [facility] , Prostate specific Ag [Mass/v olume] in Serum or PlasmaOrdered By: Rosey Dubose on 02-28-2025 Prostate specific Ag [Mass/Vol] 0.140 ng/mL 0.000-4.00 0 [facility] Comment on above: Serial tumor marker results determined by assays using different manufacturers or methods may not be comparable.Counts Include [facility] capacitor pack press operator and method:Schematic LabsEL DXI, CHEMILUMINESCENT IMMUNOASSAY. Testosteroneon 02-28-2025 Testosterone 2.90 ng/mL Normal 1.75-7.81 [facility] Comment on above: Result Comment: PERF ORMED BY: [place] [address] PATHOLOGIST INCIDENT MANAGER JAMAAL GOLDEN M.D. Performed By: #### C BC, BMP, A1C WTH eA, HEPATIC, LIPID #### [place] [address] [place] #### IGG #### [facility] , Testosterone [Mass/volume] i n Serum or PlasmaOrdered By: Rosey Dubose on 02-28-2025 Testosterone [Mass/Vol] 2.90 ng/mL 1.75-7.81 [facility] CNPNon 02-23-2025 CNPN Telephone (NEADFV) ----- MARY JIMENEZ ([id number]) 1960 M Date Time Provider Department 02/23/25 LOYDA STEELE During your visit today, we recorded the following information about you: Yolanda Conde 02/23/2025 9:32 AM Signed Pt phoned to follow up with surgery scheduling. Pt unaware of appt 03/08, have relayed this to Pt. Pt asking if needs to bring anything to appt. Please advise Pt phone #[phone] Allergies As of Date: 02/23/2025 Noted Allergy Reaction PENICILLINS 06/07/2014 10 - Anaphylaxis LATEX 09/04/2016 2 - Rash Date Reviewed: 01/04/2025 Reviewed by: Migdalia Oakes MA - Fully Assessed Reason for Visit: Patient Question [9476] Prescriptions as of 02/23/2025 - methocarbamol (ROBAXIN) 500 mg tablet Take 1,000 mg by mouth. - HYDROcodone-Acetaminophen (NORCO) 7.5-325 mg per tablet Take 1 tablet by mouth every 8 hours as needed for pain. - Pregabalin (LYRICA) 200 mg capsule Take 1 capsule by mouth three times daily for 90 days. - QUEtiapine (SEROQUEL) 25 mg tablet TAKE [...] twice daily. Problem List As Of Date 02/23/2025 Noted Resolved Headache(784.0) [R51] 07/18/2014 08/18/2021 Adjustment [...] [S32.009K] 12/31/2021 Obesity, Class II, BMI 35-39.9 [E66.812] 01/01/2022 Anemia [D64.9] 01/04/2022 Lumbar radiculopathy [M54.16] 05/13/2022 Cervical disc disorder with radiculopathy [M50.*09/15/2024 Encounter Status:Closed by GRETA NUNEZ on 02/23/25 [facility] 02-20-2025 CNPN Telephone (NEADFV) ----- MARY JIMENEZ ([id number]) 1960 M Date Time Provider Department 02/20/25 LOYDA STEELE NEADFV During your visit today, we recorded the following information about you: Yolanda Conde 02/20/2025 10:02 AM Signed Pt phoned to follow up w results of recent test. Please call and advise Pt phone #[phone] Allergies As of Date: 02/20/2025 Noted Allergy Reaction PENICILLINS 06/07/2014 10 - Anaphylaxis LATEX 09/04/2016 2 - Rash Date Reviewed: 01/04/2025 Reviewed by: Migdalia Oakes MA - Fully Assessed Reason for Visit: Results [95] Prescriptions as of 02/22/2025 - methocarbamol (ROBAXIN) 500 mg tablet Take 1,000 mg by mouth. - HYDROcodone-Acetaminophen (NORCO) 7.5-325 mg per tablet Take 1 tablet by mouth every 8 hours as needed for pain. - Pregabalin (LYRICA) 200 mg capsule Take 1 capsule by mouth three times daily for 90 days. - QUEtiapine (SEROQUEL) 25 mg tablet TAKE [...] twice daily. Problem List As Of Date 02/20/2025 Noted Resolved Headache(784.0) [R51] 07/18/2014 08/18/2021 Adjustment [...] [S32.009K] 12/31/2021 Obesity, Class II, BMI 35-39.9 [E66.812] 01/01/2022 Anemia [D64.9] 01/04/2022 Lumbar radiculopathy [M54.16] 05/13/2022 Cervical disc disorder with radiculopathy [M50.*09/15/2024 Encounter Status:Closed by YOLANDA CONDE on 02/20/25 [facility] 02-09-2025 CNPN Telephone (NEADFV) ----- MARY JIMENEZ ([id number]) 1960 M Date Time Provider Department 02/09/25 LOYDA STEELE NESANIAFV During your visit today, we recorded the following information about you: Sidra Duval 02/09/2025 1:25 PM Signed Pt called - wondering if Dr. Steele will prescribe another steroid pack for his back - said his back is in terrible pain - #[phone] Allergies As of Date: 02/09/2025 Noted Allergy Reaction PENICILLINS 06/07/2014 10 - Anaphylaxis LATEX 09/04/2016 2 - Rash Date Reviewed: 01/04/2025 Reviewed by: Migdalia Oakes MA - Fully Assessed Reason for Visit: Medication Request [138] Order(s):methylPREDNISolo ne (MEDROL, JOAQUÍN,) 4 mg Dose-PackAs instructed per packageDisp: 21 tabletRfl: 0 Prescriptions as of 02/09/2025 - methylPREDNISolone (MEDROL, JOAQUÍN,) 4 mg Dose-Pack As instructed per package - methocarbamol (ROBAXIN) 500 mg tablet Take 1,000 mg by mouth. - HYDROcodone-Acetaminophen (NORCO) 7.5-325 mg per tablet Take 1 tablet by mouth every 8 hours as needed for pain. - Pregabalin (LYRICA) 200 mg capsule Take 1 capsule by mouth three times daily for 90 days. - QUEtiapine (SEROQUEL) 25 mg tablet TAKE [...] twice daily. Problem List As Of Date 02/09/2025 Noted Resolved Headache(784.0) [R51] 07/18/2014 08/18/2021 Adjustment [...] [S32.009K] 12/31/2021 Obesity, Class II, BMI 35-39.9 [E66.812] 01/01/2022 Anemia [D64.9] 01/04/2022 Lumbar radiculopathy [M54.16] 05/13/2022 Cervical disc disorder with radiculopathy [M50.*09/15/2024 Prescriptions ordered this encounter Disp Refills Start End METHYLPREDNISOLONE 4 MG TABLET (more content not included)... Normal [facility] Basophils [#/volume] in Bloo d by Automated countOrdered By: Danisha Bran on 01-31-2025 Basophils (Bld) [#/Vol] 0.0 10*3/uL Normal 0.0-0.2 [facility] Comment on above: Result Comment: PERF ORMED BY: [place] [address] PATHOLOGIST INCIDENT MANAGER JAMAAL GOLDEN M.D. Performed By: #### C REAT, BUN, CBC, LYTES, PP, LIPID #### [address] Basophils/100 leukocytes in Blood by Automated countOrdered By: Danisha Bran on 01-31-2025 Basophils/100 WBC (Bld) 1.0 % Normal . [facility] Comment on above: Performed By: #### C REAT, BUN, CBC, LYTES, PP, LIPID #### [address] Carbon dioxide, total [Moles /volume] in Serum or PlasmaOrdered By: Danisha Bran on 01-31-2025 CO2 [Moles/Vol] 29.4 mmol/L Normal 21.0-31.0 [facility] Comment on above: Performed By: #### C BC, BMP, A1C WTH eA, HEPATIC, LIPID #### [facility] [address] [place] [address] #### IGG #### [facility] , Chloride [Moles/volume] in S irma or PlasmaOrdered By: Danisha Bran on 08-05-2025 Chloride [Moles/Vol] 101 mmol/L Normal 98-107 [facility] Comment on above: Performed By: #### C BC, BMP, A1C WTH eA, HEPATIC, LIPID #### [facility] [address] [place] [address] [place] #### IGG #### [facility] , Cholesterol [Mass/volume] in Serum or PlasmaOrdered By: Dainsha Bran on 01-31-2025 Cholesterol [Mass/Vol] 140 mg/dL Normal 140-200 [facility] Comment on above: Chol less than 200 m g/dl low riskChol 201-239 mg/dl borderline riskChol 240 mg/dl and greater high risk Result Comment: Chol less than 200 mg/dl low risk Chol 201-239 mg/dl borderline risk Chol 240 mg/dl and greater high risk Performed By: #### C BC, BMP, A1C WTH eA, HEPATIC, LIPID #### [facility] [address] [place] [address] [place] #### IGG #### [facility] , Cholesterol in HDL [Mass/vol ume] in Serum or PlasmaOrdered By: Danisha Bran on 01-31-2025 Cholesterol in HDL [Mass/Vol] 39 mg/dL Normal 23-92 [facility] Comment on above: HDL CHOL ATP-III CLA SSIFICATION Cardiovascular RiskHDL > or equal to 60 mg/dL LOWHDL < 40 mg/dL HIGH Result Comment: HDL CHOL ATP-III CLASSIFICATION Cardiovascular Risk HDL > or equal to 60 mg/dL LOW HDL < 40 mg/dL HIGH Performed By: #### C BC, BMP, A1C WTH eA, HEPATIC, LIPID #### [facility] [address] [place] [address] [place] #### IGG #### [facility] , Cholesterol in LDL Calc [Mas s/Vol]Ordered By: Danisha Bran on 01-31-2025 Cholesterol in LDL [Mass/Vol] 60 mg/dL 0-100 [facility] Comment on above: LDL ATP III CLASSIFI CATIONLDL less than 100 mg/dL OptimalLDL 100-129 mg/dL Near or above optimalLDL 130-159 mg/dL Borderline highLDL 160-189 mg/dL HighLDL greater than 189 mg/dL Very high Cholesterol in VLDL Calc [Ma ss/Vol]Ordered By: Danisha Bran on 01-31-2025 Cholesterol in VLDL [Mass/Vol] 40 mg/dL [facility] Coagulation Profileon 2024 aPTT Coag (Bld) [Time] 36.4 s Normal 25.1-36.5 Th e Counts Include [facility] Comment on above: Result Comment: A he matocrit value greater than 55% may lead to inaccurate results in coagulation testing. Patients having hematocrit values >55% require a special collection tube for coagulation studies. Please contact the laboratory at [phone] for redraw instructions. PERFORMED BY: [place] [address] PATHOLOGIST INCIDENT MANAGER JAMAAL GOLDEN M.D. Performed By: #### C BC, BMP, A1C WTH eA, HEPATIC, LIPID #### [address] #### IGG #### [facility] , Complete Blood Count Auto Di ffon 01-31-2025 Mean Corpuscular HGB Conc 34.0 g/dL Normal 32.5-35.6 The Counts Include [facility] Comment on above: Performed By: #### C REAT, BUN, CBC, LYTES, PP, LIPID #### [address] NRBC% 0.2 /100{WBC} Normal 0-0.5 [facility] Comment on above: Performed By: #### C REAT, BUN, CBC, LYTES, PP, LIPID #### [address] White Blood Count 4.3 [CFU]/mL Normal 4.1-10.5 [facility] Comment on above: Performed By: #### C REAT, BUN, CBC, LYTES, PP, LIPID #### [address] Creatinineon 01-31-2025 GFR/1.73 sq M.predicted MDRD (S/P/Bld) [Vol rate/Area] 57.752 mL/min/{1.73_m2} Normal [facility] Comment on above: Performed By: #### C BC, BMP, A1C WTH eA, HEPATIC, LIPID #### [facility] [address] [place] [address] [place] #### IGG #### [facility] , Creatinine [Mass/volume] in Serum or PlasmaOrdered By: Danisha Bran on 01-31-2025 Creatinine [Mass/Vol] 1.36 mg/dL High 0.70-1.[address] [facility] Comment on above: Performed By: #### C BC, BMP, A1C WTH eA, HEPATIC, LIPID #### [facility] [address] [place] [address] [place] #### IGG #### [facility] , ECG 12 lead ECGon 01-31-2025 ECG 12 lead ECG [facility] [place] [address] [place] [address] Electrocardiograph Report Signed Patient: Mary Jimenez MR#: [id number] : 1960 Acct:[id number] Age/Sex: 64 / M ADM Date: 01/31/25 Loc: Room: Type: [facility] Attending Dr: Danisha Bran MD Ordering Provider: Danisha Bran MD Date of Service: 01/31/2511/21/923 ECG/ECG 12 lead ECG: [facility] PST Copies to: Test Reason : [...] ) Borderline ECG Confirmed by Gracia Aly ([id number]) on 01/31/2025 3:10:11 PM Referred By: Electronically Signed By: Gracia Aly Transcribed By: MUS Signed By Gracia Aly MD 5 1510 Normal The Counts Include [facility] Eosinophils [#/volume] in Bl ood by Automated countOrdered By: Danisha Bran on 01-31-2025 Eosinophils (Bld) [#/Vol] 0.2 10*3/uL Normal 0.0-0.45 [facility] Comment on above: Performed By: #### C REAT, BUN, CBC, LYTES, PP, LIPID #### [address] Eosinophils/100 leukocytes i n Blood by Automated countOrdered By: Danisha Bran on 01-31-2025 Eosinophils/100 WBC (Bld) 5.4 % Normal . [facility] Comment on above: Performed By: #### C REAT, BUN, CBC, LYTES, PP, LIPID #### [address] Erythrocyte distribution wid th [Ratio] by Automated countOrdered By: Danisha Bran on 01-31-2025 Erythrocyte distribution width (RBC) [Ratio] 13.3 % Normal 12.0-14.8 [facility] Comment on above: Performed By: #### C REAT, BUN, CBC, LYTES, PP, LIPID #### [address] Erythrocytes [#/volume] in B lood by Automated countOrdered By: Danisha Bran on 01-31-2025 RBC (Bld) [#/Vol] 4.70 10*6/uL Normal 3.90-5.60 [facility] Comment on above: Performed By: #### C REAT, BUN, CBC, LYTES, PP, LIPID #### [address] Hematocrit [Volume Fraction] of Blood by Automated countOrdered By: Danisha Bran on 01-31-2025 Hematocrit (Bld) [Volume fraction] 45.3 % Normal 38.8-50.0 [facility] Comment on above: Performed By: #### C REAT, BUN, CBC, LYTES, PP, LIPID #### [facility] [address] Hemoglobin [Mass/volume] in BloodOrdered By: Danisha Bran on 01-31-2025 Hemoglobin (Bld) [Mass/Vol] 15.4 g/dL Normal 13.0-17.0 [facility] Comment on above: Performed By: #### C REAT, BUN, CBC, LYTES, PP, LIPID #### [facility] [address] INR in Platelet poor plasma by Coagulation assayOrdered By: Danisha Bran on 01-31-2025 INR Coag (PPP) [Relative time] 1.0 {INR} Normal [facility] Comment on above: INR Therapeutic Rang [...] with mechanical heart valves: 3 - 4.5 Result Comment: INR Therapeutic Range A) Pre- [...] valves: 3 - 4.5 Performed By: #### C BC, BMP, A1C WTH eA, HEPATIC, LIPID #### [facility] [address] [place] [address] [place] #### IGG #### [facility] , Leukocytes [#/volume] correc herbert for nucleated erythrocytes in Blood by Automated counOrdered By: Danisha Bran on 01-31-2025 WBC corrected for nucl RBC Auto (Bld) [#/Vol] 4.3 10*3/uL 4.1-10.5 [facility] Leukocytes [#/volume] in Blo od by Automated countOrdered By: Danisha Bran on 01-31-2025 WBC (Bld) [#/Vol] 4.3 10*3/uL Normal 4.1-10.5 [facility] Comment on above: Performed By: #### C REAT, BUN, CBC, LYTES, PP, LIPID #### [facility] [address] Lipid Panelon 01-31-2025 LDL Cholesterol,Calculated 60 mg/dL Normal 0-100 [facility] Comment on above: Result Comment: LDL ATP III CLASSIFICATION LDL less than 100 mg/dL Optimal LDL 100-129 mg/dL Near or above optimal LDL 130-159 mg/dL Borderline high LDL 160-189 mg/dL High LDL greater than 189 mg/dL Very high Performed By: #### C BC, BMP, A1C WTH eA, HEPATIC, LIPID #### [address] #### IGG #### [facility] , Triglyceride w/Reflex 203 mg/dL High 0-149 The Counts Include [address] [facility] Comment on above: Result Comment: TRIG ATP III CLASSIFICATION TRIG less than 150 mg/dL Normal TRIG 150-199 mg/dL Borderline high TRIG 200-500 mg/dL High TRIG greater than 500 mg/dL Very high Standard traceable to the Center for Disease Conrtrol and Prevention (CDC) test method. Performed By: #### C BC, BMP, A1C WTH eA, HEPATIC, LIPID #### [facility] [address] [place] [address] [place] #### IGG #### [facility] , VLDL CHOLESTEROL 40 mg/dL Normal [facility] Comment on above: Performed By: #### C BC, BMP, A1C WTH eA, HEPATIC, LIPID #### [address] #### IGG #### [facility] , Lymphocytes [#/volume] in Bl ood by Automated countOrdered By: Danisha Bran on 01-31-2025 Lymphocytes (Bld) [#/Vol] 0.8 10*3/uL Low 1.00-4.8 [facility] Comment on above: Performed By: #### C REAT, BUN, CBC, LYTES, PP, LIPID #### [facility] [address] Lymphocytes/100 leukocytes i n Blood by Automated countOrdered By: Danisha Bran on 01-31-2025 Lymphocytes/100 WBC (Bld) 18.6 % Normal . [facility] Comment on above: Performed By: #### C REAT, BUN, CBC, LYTES, PP, LIPID #### [facility] [address] [place] [address] MCH [Entitic mass] by Automa herbert countOrdered By: Danisha Bran on 01-31-2025 MCH (RBC) [Entitic mass] 32.8 pg Normal 27.5-35.2 [facility] Comment on above: Performed By: #### C REAT, BUN, CBC, LYTES, PP, LIPID #### [facility] [address] [place] [address] MCHC Auto (RBC) [Mass/Vol]Or dered By: Danisha Bran on 01-31-2025 MCHC (RBC) [Mass/Vol] 34.0 g/dL 32.5-35.[address] [facility] MCV [Entitic volume] by Auto mated countOrdered By: Danisha Bran on 01-31-2025 MCV (RBC) [Entitic vol] 96.5 fL Normal 83.5-101 [facility] Comment on above: Performed By: #### C REAT, BUN, CBC, LYTES, PP, LIPID #### [facility] [address] [place] [address] Monocytes [#/volume] in Bloo d by Automated countOrdered By: Danisha Bran on 01-31-2025 Monocytes (Bld) [#/Vol] 0.6 10*3/uL Normal 0.0-0.8 [facility] Comment on above: Performed By: #### C REAT, BUN, CBC, LYTES, PP, LIPID #### [facility] [address] [place] [address] [place] Monocytes/100 leukocytes in Blood by Automated countOrdered By: Danisha Bran on 01-31-2025 Monocytes/100 WBC (Bld) 14.0 % Normal . [facility] Comment on above: Performed By: #### C REAT, BUN, CBC, LYTES, PP, LIPID #### [facility] [address] Neutrophils [#/volume] in Bl ood by Automated countOrdered By: Danisha Bran on 01-31-2025 Neutrophils (Bld) [#/Vol] 2.6 10*3/uL Normal 1.8-7.7 [facility] Comment on above: Performed By: #### C REAT, BUN, CBC, LYTES, PP, LIPID #### [facility] [address] [place] [address] Neutrophils/100 leukocytes i n Blood by Automated countOrdered By: Danisha Bran on 01-31-2025 Neutrophils/100 WBC (Bld) 61.0 % Normal . [facility] Comment on above: Performed By: #### C REAT, BUN, CBC, LYTES, PP, LIPID #### [facility] [address] [place] [address] No Panel InformationOrdered By: Danisha Bran on 01-31-2025 Estimated GFR (CKD-EPI) 57.752 mL/Min [facility] Creatinine Clearance (Chem N/A [facility] Nucleated erythrocytes [Pres ence] in Blood by Automated countOrdered By: Danisha Bran on 01-31-2025 Nucleated RBC Auto Ql (Bld) 0.2 /100{WBC} 0-0.5 [facility] Platelet mean volume [Entiti c volume] in Blood by Automated countOrdered By: Danisha Bran on 01-31-2025 Platelet mean volume (Bld) [Entitic vol] 9.0 fL Normal 6.6-10.1 [facility] Comment on above: Performed By: #### C REAT, BUN, CBC, LYTES, PP, LIPID #### [facility] [address] Platelets [#/volume] in Bloo d by Automated countOrdered By: Danisha Bran on 01-31-2025 Platelets (Bld) [#/Vol] 155 10*3/uL Normal 150-450 [facility] Comment on above: Performed By: #### C REAT, BUN, CBC, LYTES, PP, LIPID #### [address] Potassium [Moles/volume] in Serum or PlasmaOrdered By: Danisha Bran on 01-31-2025 Potassium [Moles/Vol] 4.3 mmol/L Normal 3.5-5.[address] [facility] Comment on above: Performed By: #### C BC, BMP, A1C WTH eA, HEPATIC, LIPID #### [address] #### IGG #### [facility] , Prothrombin time (PT)Ordered By: Danisha Bran on 01-31-2025 PT Coag (PPP) [Time] 11.0 s Normal 9.0-12.9 [facility] Comment on above: A hematocrit value g reater than 55% may lead to inaccurate results in coagulation testing. Patients having hematocrit values >55% require a special collection tube for coagulation studies. Please contact the laboratory at [phone] for redraw instructions. Result Comment: A he matocrit value greater than 55% may lead to inaccurate results in coagulation testing. Patients having hematocrit values >55% require a special collection tube for coagulation studies. Please contact the laboratory at [phone] for redraw instructions. Performed By: #### C BC, BMP, A1C WTH eA, HEPATIC, LIPID #### [place] [address] [place] #### IGG #### [facility] , Serum or plasma anion gap de terminationOrdered By: Danisha Bran on 01-31-2025 Anion gap [Moles/Vol] 10.9 mmol/L Normal 6.0-15.0 [facility] Comment on above: Performed By: #### C BC, BMP, A1C WTH eA, HEPATIC, LIPID #### [facility] [address] [place] [address] [place] #### IGG #### [facility] , Serum or plasma total choles terol/high density lipoprotein (HDL) cholesterol mass ratOrdered By: Danisha Bran on 01-31-2025 Cholesterol.total/Chol esterol in HDL [Mass ratio] 3.6 {ratio} Normal <5.0 [facility] Comment on above: Result Comment: PERF ORMED BY: [place] [address] PATHOLOGIST INCIDENT MANAGER JAMAAL GOLDEN M.D. Performed By: #### C BC, BMP, A1C WTH eA, HEPATIC, LIPID #### [facility] [address] [place] [address] [place] #### IGG #### [facility] , Sodium [Moles/volume] in Ser um or PlasmaOrdered By: Danisha Bran on 01-31-2025 Sodium [Moles/Vol] 137 mmol/L Normal 136-145 [facility] Comment on above: Performed By: #### C BC, BMP, A1C WTH eA, HEPATIC, LIPID #### [facility] [address] [place] [address] [place] #### IGG #### [facility] , Triglyceride [Mass/volume] i n Serum or PlasmaOrdered By: Danisha Bran on 01-31-2025 Triglyceride [Mass/Vol] 203 mg/dL High 0-149 [facility] Comment on above: TRIG ATP III CLASSIF ICATIONTRIG less than 150 mg/dL NormalTRIG 150-199 mg/dL Borderline highTRIG 200-500 mg/dL High TRIG greater than 500 mg/dL Very highStandard traceable to the Center for Disease Conrtrol and Prevention (CDC) test method. Urea nitrogen [Mass/volume] in Serum or PlasmaOrdered By: Danisha Bran on 01-31-2025 Urea nitrogen [Mass/Vol] 25 mg/dL Normal 7- [facility] Comment on above: Performed By: #### C BC, BMP, A1C WTH eA, HEPATIC, LIPID #### [facility] [address] #### IGG #### [facility] , aPTT in Platelet poor plasma by Coagulation assayOrdered By: Danisha Bran on 01-31-2025 aPTT Coag (PPP) [Time] 36.4 s 25.1-36.5 [facility] Comment on above: A hematocrit value g reater than 55% may lead to inaccurate results in coagulation testing. Patients having hematocrit values >55% require a special collection tube for coagulation studies. Please contact the laboratory at [phone] for redraw instructions. Pam[facility]20[facility] ----- MARY JIMENEZ ([id number]) 1960 M Date Time Provider Department 01/09/25 LOYDA STEELE NESANIAFV During your visit today, we recorded the following information about you: Sidra Duval 01/09/2025 4:06 PM Signed Pt called - said when he met with Dr. Steele, he promised that he would give him a call today after consulting with another surgeon and he hasn't heard anything so he decided to call us - would like a call back #[phone] Greta Nunez RN 01/13/2025 8:09 AM Signed Will address in MyChart encounter. Allergies As of Date: 01/09/2025 Noted Allergy Reaction PENICILLINS 06/07/2014 10 - Anaphylaxis LATEX 09/04/2016 2 - Rash Date Reviewed: 01/04/2025 Reviewed by: Migdalia Oakes MA - Fully Assessed Reason for Visit: Patient Question [1477] Prescriptions as of 01/13/2025 - methocarbamol (ROBAXIN) 500 mg tablet Take 1,000 mg by mouth. - HYDROcodone-Acetaminophen (NORCO) 7.5-325 mg per tablet Take 1 tablet by mouth every 8 hours as needed for pain. - Pregabalin (LYRICA) 200 mg capsule Take 1 capsule by mouth three times daily for 90 days. - QUEtiapine (SEROQUEL) 25 mg tablet TAKE [...] twice daily. Problem List As Of Date 01/09/2025 Noted Resolved Headache(784.0) [R51] 07/18/2014 08/18/2021 Adjustment [...] [S32.009K] 12/31/2021 Obesity, Class II, BMI 35-39.9 [E66.812] 01/01/2022 Anemia [D64.9] 01/04/2022 Lumbar radiculopathy [M54.16] 05/13/2022 Cervical disc disorder with radiculopathy [M50.*09/15/2024 Encounter Status:Closed by GRETA NUNEZ on 01/13/25 [facility] CNOVon 01-04-2025 CNOV Office Visit (NSFRVW ) ----- MARY JIMENEZ ([id number]) 1960 [place] Date Time Provider Department 01/04/25 11:40 AM LOYDA STEELE NSFRVW During your visit today, we recorded the following information about you: Pulse Blood pressure Weight Height 64/minute 134/81 125.2 kg 1.765 m Loyda Steele MD 01/04/2025 1:14 PM Signed SPINE SURGERY ESTABLISHED PATIENT PCP: Jose Valdovinos DO REFERRING PROVIDER: Loyda Steele [id number] [facility] [address] Assessment/Plan (S32.009K) Lumbar pseudoarthrosis (primary encounter diagnosis) 1. Lumbar pseudoarthrosis (S32.009K) - Persistent severe back pain, exacerbated by standing and walking, with difficulty sleeping due to discomfort. No leg symptoms reported. - Imaging reveals partial fusion with some areas appearing loose, including the S1 region and certain screws. - Discussed surgical intervention involving anterior approach to place a larger spacer and posterior approach to upsize screws for increased stability. - Explained potential risks of anterior approach due to previous surgery and possible scarring, but noted favorable anatomy for the procedure. - Will consult with a colleague who performs exposures to ensure feasibility and safety of the anterior approach. - Patient agrees with the proposed surgical plan. - Will send an email to the colleague to review images and confirm the plan; anticipate scheduling the procedure once confirmation is received. - Follow-up communication expected by Thursday. Subjective Chief Complaint: History of Present Illness: Alfredo Jimenez is a 64-year-old male presenting for follow-up [...] has not undergone any other abdominal surgeries. Musculoskeletal: (+) back pain, (-) leg pain Psychiatric: (+) sleep disturbance Major Risk Factors Notable surgical risk factors: Smoking status: Never BMI:40.17 kg/m2. Patient's BMI would meet criteria for obesity given BMI >= 30 Obesity High Risk BMI: 40.17 kg/m2 High: BMI > 40 Moderate: BMI 30-40 Normal: BMI < 30 Diabetes normal Last HbA1C: 6.3 - 12/08/2014 High: A1C > 8 Moderate: A1C 7-8 Normal: A1C < 7 Hx of DVT / PE normal High: dx of DVT / PE Normal: no dx of DVT / PE Smoking normal Last Status: Never High: Current smoker Normal: Non smoker Narcotics Use High Risk High:NarxCare >=300 Moderate: 100-299 Normal: 0-99 Depression Moderate Risk High: PHQ-9 >14 Moderate: PHQ-9 5-14 Normal: PHQ-9 < 5 Data from F Epic on prior therapies: Last PT session: No date on file in last 365 days Last Epidural Steroid Injection: Date - 09/15/2024 with Guillaume Bhandari Last Spine Surgery: Date - 12/31/2021 with Loyda Steele. Procedure: Posterior revision L4 - pelvis instrumented fusion - ARTHRODESIS COMBINED TQ 1NTRSPC LUMBAR, ARTHRODESIS POSTERIOR INTERBODY 1 NTRSPC EA ADDL, POSTERIOR SEGMENTAL INSTRUMENTATION 3-6 VRT SEG, INSJ BIOMCHN DEV INTERVERTEBRAL DSC SPC W/ARTHRD Objective PHYSICAL EXAM BP 134/81 (BP Site: Left Arm, BP Cuff Size: Large Adult) Pulse 64 Ht 176.5 cm (5' 9.5 ) Wt 125.2 kg (276 lb) SpO2 100% BMI 40.17 kg/m? General: Well-appearing, obese. Back: Surgical scars present. Results: Imaging: - Lumbar spine imaging: Partial fusion observed with some evidence of hardware loosening at S1. Referring Provider: LOYDA STEELE [[id number]] Allergies As of Date: 01/04/2025 Noted Allergy Reaction PENICILLINS 06/07/2014 10 - Anaphylaxis LATEX 09/04/2016 2 - Rash Date Reviewed: 01/04/2025 Reviewed by: Migdalia Oakes MA - Fully Assessed Reason for Visit: Follow Up [171] Cmt: Lumbar radiculopathy, EMG results Primary Visit Diagnosis:Lumbar pseudoarthrosis [S32.009K] Prescriptions as of 01/04/2025 - methocarbamol (ROBAXIN) 500 mg tablet Take 1,000 mg by mouth. - HYDROcodone-Acetaminophen (NORCO) 7.5-325 mg per tablet Take 1 tablet by mouth every 8 hours as needed for pain. - Pregabalin (LYRICA) 200 mg capsule Take 1 capsule by mouth three times daily for 90 days. - QUEtiapine (SEROQUEL) 25 mg tablet TAKE [...] mouth once daily. - docusate sodium (COLACE) (more content not included)... Normal [facility] XR tibia fibula RT 2V*on XR tibia fibula RT 2V* [facility] [place] [address] [place] [id number] XRay Report Signed Patient: Mary Jimenez MR#: [id number] : 1960 Acct:[id number] Age/Sex: 64 / M ADM Date: 12/08/24 Loc: XDSHC Room: Type: [facility] Attending Dr: Palak Merritt GROUNDS PERSON-C Copies to: Palak Merritt GROUNDS PERSON-C Ordering Provider: Palak Merritt GROUNDS PERSON-C Date of Service: 12/08/24 XR/XR tibia fibula RT 2V*: S80.811A 2 views right tibia-fibula INDICATION: Abrasion COMPARISON:: None FINDINGS:: Soft tissue swelling identified. No radiopaque foreign body. Postsurgical changes of the arthroplasty appear intact. Degenerative changes at the level ankle noted. XR/XR tibia fibula RT 2V* IMPRESSION: No fractures or dislocation. Impression dictated by: Vega Dash M.D. 12/08/2024 7:25 PM Dictation Location: [place] [address] Transcribed By: [facility] 12/08/241924 Dictated By: Vega Dash MD 12/08/241923 Signed By: 12/08/241924 Normal [facility] Ambulatory Visit Summaryon 0 12-05-2024 Ambulatory Visit Summary Ambulatory Visit Summary MARY JIMENEZ :1960 Visit Date:12/05/2024 Ambulatory Visit Instructions Your Diagnosis Scrotal mass BPH (benign prostatic hyperplasia) Epididymal cyst Your Care Team Attending Physician - Gilmar EDUARDO MD Primary Care Physician - JOSE VALDOVINOS DO Referring Physician - JOSE VALDOVINOS DO This Is Your Medications List Non-Formulary Medication (Green Tea Capsule) Turmeric (turmeric 500 mg oral capsule) acetaminophen-hydrocodone ([place] 325 mg-5 mg oral tablet) ascorbic acid (Vitamin C 500 mg Tab) atorvastatin baclofen (baclofen 20 mg Tab) bisacodyl (bisacodyl 5 mg Oral EC Tab) calcium-vitamin D (calcium-vitamin D 600 mg-400 intl units oral tablet) cholecalciferol (cholecalciferol 5000 intl units oral capsule) cyanocobalamin (Vitamin B12 1000 mcg Tab) diclofenac dicyclomine (dicyclomine 20 mg Tab) diphenhydrAMINE (Diphenhist 25 mg oral capsule) doxazosin (doxazosin 4 mg Tab) duloxetine (duloxetine 30 mg Cap-DR) finasteride (finasteride 5 mg Tab) fluticasone nasal (fluticasone Nasal 0.05 mg/inh [place]) fremanezumab (Ajovy Autoinjector 225 mg/1.5 mL subcutaneous solution) fremanezumab (Ajovy Autoinjector) furosemide (Lasix 40 mg Tab) furosemide (Lasix) isosorbide mononitrate (isosorbide mononitrate 30 mg ER Tab) magnesium oxide (magnesium oxide 400 mg Tab) menthol topical (Biofreeze 4% topical gel) methylPREDNISolone (methylPREDNISolone 4 mg tab dosepak) metoprolol (metoprolol 50 mg ER Tab) milk thistle (Milk Thistle oral capsule) multivitamin (One-A-Day) multivitamin (Vitamin B Complex oral capsule) nitroglycerin (nitroglycerin 0.4 mg sublingual Tab) nortriptyline (nortriptyline 50 mg oral capsule) omega-3 polyunsaturated fatty acids (Fish Oil 1200 mg oral capsule) omeprazole omeprazole (Prilosec) pancrelipase (Creon) polyethylene glycol 3350 (Miralax 17 gram packet) potassium chloride (Klor-Con M20) pregabalin (Lyrica 200 mg Cap) promethazine selenium (Selenium TR 200 mcg oral tablet) semaglutide (Ozempic) sildenafil (sildenafil 50 mg Tab) telmisartan (Micardis 80 mg oral tablet) testosterone (Testosterone Cypionate 200 mg/mL intramuscular solution) valacyclovir (Valtrex 500 mg Tab) zolpidem (Ambien 5 mg Tab) Procedures Performed Carpal tunnel release (05/18/2020), Incision AND drainage (07/19/2019), Total knee arthroplasty (06/06/2019), Rotator cuff repair (01/04/2018), Total shoulder replacement (08/24/2017), Left total knee arthroplasty compounded by obesity (06/11/2016), Arthroscopy of shoulder (02/14/2016), ankle left, Arthroscopy of knee, Back, Foot, History of operative procedure on lumbar spinal structure, insertion of bone stimulator, Laminectomy, rt little finger closed reduction. Discharge Vitals Temperature (Temporal Artery) 36 ???C Heart Rate (Peripheral) 90 Respiratory Rate 18 Blood Pressure 150/78 Height 176 cm Height 69 in Weight 12.7 kg Weight 27.999 lb BMI 4.1 What to do next You Need to Schedule the Following Appointments Follow Up with RODRICK MACIAS, PADMINI Doss When: Only if needed Where: Medications What How Much When Why Instructions Unchanged acetaminophen-hydrocodone ([place] 325 mg-5 mg oral tablet) 1 Tablets By Mouth Every 4 hours as needed for pain Unchanged ascorbic acid (Vitamin C 500 mg Tab) 1 Tablets By Mouth Every day Unchanged atorvastatin 80 Milligram By Mouth Once a day (at bedtime) Unchanged baclofen (baclofen 20 mg Tab) 1 Tablets By Mouth 2 times a day Unchanged bisacodyl (bisacodyl 5 mg Oral EC Tab) 2 Tablets By Mouth Every day as needed for for constipation Unchanged calcium-vitamin D (calcium-vitamin D 600 mg-400 intl units oral tablet) 1 Tablets By Mouth Every day Unchanged cholecalciferol (cholecalciferol 5000 intl units oral capsule) 1 Capsules By Mouth Every day with food Unchanged cyanocobalamin (Vitamin B12 1000 mcg Tab) 1 Tablets By Mouth Every day Unchanged diclofenac By Mouth Unchanged dicyclomine (dicyclomine 20 mg Tab) 1 Tablets By Mouth 4 times a day as needed for cramps Unchanged diphenhydrAMINE (Diphenhist 25 mg oral capsule) 1 Capsules By Mouth Every 6 hours as needed for as needed for itching Unchanged doxazosin (doxazosin 4 mg Tab) Unchanged duloxetine (duloxetine 30 mg Cap-DR) 90 Milligram By Mouth Every day Unchanged finasteride (finasteride 5 mg Tab) 1 Tablets By Mouth At bedtime Unchanged fluticasone nasal (fluticasone Nasal 0.05 mg/ inh [place]) 2 Sprays Nasal Inhalation 2 times a day Unchanged fremanezumab (Ajovy Autoinjector 225 mg/ 1.5 mL subcutaneous solution) 225 Milligram Subcutaneous Once a month Unchanged fremanezumab (Ajovy Autoinjector) Subcutaneous Once a month Unchanged furosemide (Lasix 40 mg Tab) By Mouth Every day Unchanged furosemide (Lasix) 40 Milligram By Mouth Every day Unchanged isosorbide mononitrate (isosorbide mononitrate 30 mg ER Tab) Uncha (more content not included)... Normal [facility] CNOVon 11-30-2024 CNOV Office Visit (NSFRVW ) ----- MARY JIMENEZ ([id number]) 1960 M Date Time Provider Department 11/30/24 11:40 AM LOYDA STEELE NSFRVW During your visit today, we recorded the following information about you: Pulse Blood pressure Weight Height 96/minute 115/65 125.6 kg 1.765 m Loyda Steele MD 11/30/2024 6:32 PM Signed SPINE SURGERY ESTABLISHED PATIENT PCP: Jose Valdovinos DO REFERRING PROVIDER: Loyda Steele [address] [facility] [address] Assessment/Plan (M54.16) Lumbar radiculopathy (primary encounter diagnosis) 1. Lumbar radiculopathy (M54.16) - Persistent bilateral lower back pain, predominantly on the left side, with a history of incomplete bone healing at L5-S1 as per July CT scan. - Ordered lumbar epidural steroid injection to be performed by Dr. Alba at [place]. - Prescribed a course of oral steroids (steroid pack) to address inflammation. - Discussed potential surgical intervention if conservative measures fail, including upsizing screws and adding additional screws to enhance stability and promote bone fusion. - Educated patient on the risks of long-term steroid use, including adrenal suppression, muscle atrophy, and osteoporosis. - Follow-up appointment to be conducted virtually to assess response to treatment and discuss further management options. Subjective Chief Complaint: History of Present Illness: Alfredo is a 64-year-old male presenting for evaluation of persistent numbness in the arms and lower back pain. Alfredo reports persistent numbness in both arms, extending from the elbows to the hands. He notes that the numbness is triggered by resting his hands and is accompanied by frequent dropping of objects. He describes the numbness as affecting the entire hand rather than a specific area. He does not endorse pain in the neck. He also reports ongoing lower back pain, which has worsened since a recent fall. The pain is now present on both sides of the lower back, whereas it was previously localized to the left side. He recalls receiving a back injection several years ago but does not remember the exact date. He notes that oral steroids have provided significant relief in the past, more so than injections. Alfredo mentions that he uses a cane for mobility and expresses a preference for receiving future injections at a location closer to his home in [place]. Neck: (-) neck pain Musculoskeletal: (+) low back pain Neurological: (+) upper extremity numbness, (+) hand weakness Major Risk Factors Notable surgical risk factors: Smoking status: Never BMI:40.3 kg/m2. Patient's BMI would meet criteria for obesity given BMI >= 30 Obesity High Risk BMI: 40.3 kg/m2 High: BMI > 40 Moderate: BMI 30-40 Normal: BMI < 30 Diabetes normal Last HbA1C: 6.3 - 12/08/2014 High: A1C > 8 Moderate: A1C 7-8 Normal: A1C < 7 Hx of DVT / PE normal High: dx of DVT / PE Normal: no dx of DVT / PE Smoking normal Last Status: Never High: Current smoker Normal: Non smoker Narcotics Use High Risk High:NarxCare >=300 Moderate: 100-299 Normal: 0-99 Depression Moderate Risk High: PHQ-9 >14 Moderate: PHQ-9 5-14 Normal: PHQ-9 < 5 Data from [facility] Epic on prior therapies: Last PT session: No date on file in last 365 days Last Epidural Steroid Injection: Date - 09/15/2024 with Guillaume Bhandari Last Spine Surgery: Date - 12/31/2021 with Loyda Steele. Procedure: Posterior revision L4 - pelvis instrumented fusion - ARTHRODESIS COMBINED TQ 1NTRSPC LUMBAR, ARTHRODESIS POSTERIOR INTERBODY 1 NTRSPC EA ADDL, POSTERIOR SEGMENTAL INSTRUMENTATION 3-6 VRT SEG, INSJ BIOMCHN DEV INTERVERTEBRAL DSC SPC W/ARTHRD Objective PHYSICAL EXAM BP 115/65 Pulse 96 Ht 176.5 cm (5' 9.5 ) Wt 125.6 kg (276 lb 14.4 oz) SpO2 96% BMI 40.30 kg/m? General: No acute distress. MSK/Ext: Tinel's sign over ulnar nerve negative. Results: Labs: Tests: Imaging: - (July) CT Lumbar Spine: - Approximately 90% bone healing observed - Possible minimal hardware loosening around some screws - Evidence of partial scar formation at L5-S1 Referring Provider: LOYDA STEELE [[id number]] Allergies As of Date: 11/30/2024 Noted Allergy Reaction PENICILLINS 06/07/2014 10 - Anaphylaxis LATEX 09/04/2016 2 - Rash Date Reviewed: 11/30/2024 Reviewed by: Nikos London PCNA - Fully Assessed Reason for Visit: Follow Up [171] Cmt: Pt states that lower back pain has increased. States he had a fall that made it worse Primary Visit Diagnosis:Lumbar radiculopathy [M54.16] Order(s):methylPREDNISolo ne (MEDROL DOSE-PACK) 4 mg Dose-PackTake as instructed per package.Disp: 21 tabletRfl: 0 SPINE INTERVENTION PROCEDURE [[id number]] Order #: [id number] [facility](NEURO/NI) [[id number]] Order #: [id number]: 1 FUTURE Prescriptions as of 11/30/2024 - methocarbamol (ROBAXIN) 500 mg tablet Take 1,000 mg by mouth. - HYDROcodone-Acetaminophen (N (more content not included)... Normal [facility] US scrotumon 11-23-2024 US scrotum [facility] [place] [address] [place] [address] Ultrasound Report Signed Patient: Mary Jimenez MR#: [id number] : 1960 Acct:[id number] Age/Sex: 64 / M ADM Date: 11/23/24 Loc: Room: Type: [facility] Attending Dr: Jose Valdovinos DO Ordering Provider: Jose Valdovinos DO Date of Service: 11/23/24 US/US scrotum: N50.89 - Other specified disorders of the male genital or... Copies to: Jose Valdovinos DO SCROTAL ULTRASOUND DUPLEX IMAGING CLINICAL DATA: Scrotal lump for the past few months. COMPARISON: None The right testis measures 2.6 x 1.2 x 2.3 cm . Left testis measures 2.6 x 1.2 x 2.3 cm. There is normal testicular echogenicity. No intratesticular masses are identified. There is documentation of bilateral duplex and color Doppler testicular blood flow. The epididymal heads are similar in size. There is a small right epididymal cyst measuring 5 mm in size. There is also a septated cystic structure at the epididymal head on the left which measures 4 mm. At the site of the palpable lump at the posterior right scrotum toward the midline, there is a hypoechoic area within the subcutaneous fat measuring 8 x 2 x 5 mm in size. This is nonspecific and the etiology and significance is uncertain. US/US scrotum IMPRESSION: NO INTRATESTICULAR MASS OR TORSION. SMALL EPIDIDYMAL CYSTS. NONSPECIFIC HYPOECHOIC AREA WITHIN THE SUBCUTANEOUS FAT AT THE POSTERIOR SCROTUM TO THE RIGHT OF MIDLINE. Impression dictated by: Vivian Chambers M.D. 11/23/2024 12:18 PM Dictation Location: [place] [address] Tech: Amarilis Guardado Transcribed By: ISIDRO 11/23/24 1218 Dictated By: Vivian Chambers MD 11/23/24 1214 Signed By: 11/23/24 1218 Normal [facility] Trigger Point Injection: rig ht cervical paraspinals, left cervical paraspinalson 10-27-2024 RAIMUNDO Garcia 10/28/19 11:07 AM Trigger Point Injection: right cervical paraspinals, left cervical paraspinals on 10/27/2024 10:20 AM Indications: pain, muscle spasm and myalgia Details: 25 G needle Medications: 6 mL bupivacaine 0.25 % Outcome: tolerated well, no immediate complications Procedure, treatment alternatives, risks and benefits explained, specific risks discussed. Consent was given by the patient. [facility] A1C with Estimated Average G philipaaron 10-19-2024 Glucose [Mass/Vol] 105 mg/dL Normal [facility] Comment on above: Result Comment: PERF ORMED BY: [facility] [address] [facility] [address] PATHOLOGIST INCIDENT MANAGER KRISTA BRUNER M.D. Performed By: #### C BC, BMP, A1C WTH eA, HEPATIC, LIPID #### [facility] [address] [place] [address] [place] #### IGG #### [facility] , HbA1c (Bld) [Mass fraction] 5.3 % Normal 4.3-5.6 The Counts Include [address] At [facility] Comment on above: Result Comment: Incr eased risk for diabetes: 5.7 - 6.4 diabetes: >6.4 glycemic control for adults with diabetes: <7.0 Performed By: #### C BC, BMP, A1C WTH eA, HEPATIC, LIPID #### [facility] [address] [place] [address] [place] #### IGG #### [facility] , Alanine aminotransferase [En zymatic activity/volume] in Serum or PlasmaOrdered By: Jose Valdovinos on 10-19-2024 ALT [Catalytic activity/Vol] Alanine aminotransferase [Enzymatic activity/volume] in Serum or Plasma [facility] Albumin [Mass/volume] in Ser um or Plasma by Bromocresol green (BCG) dye binding methoOrdered By: Jose Valdovinos on 10-19-2024 Albumin BCG dye [Mass/Vol] Albumin [Mass/volume] in Serum or Plasma by Bromocresol green (BCG) dye binding metho 3.5-5.7 [facility] Alkaline phosphatase [Enzyma tic activity/volume] in Serum or PlasmaOrdered By: Jose Valdovinos on 10-19-2024 ALP [Catalytic activity/Vol] Alkaline phosphatase [Enzymatic activity/volume] in Serum or Plasma 34-104 [facility] Aspartate aminotransferase [ Enzymatic activity/volume] in Serum or PlasmaOrdered By: Jose Valdovinos on 10-19-2024 AST [Catalytic activity/Vol] Aspartate aminotransferase [Enzymatic activity/volume] in Serum or Plasma 13-39 [facility] Basic Metabolic Panelon 09-28 Anion gap [Moles/Vol] 9.3 mmol/L Normal 6.0-15.0 The Counts Include [address] Beds At [facility] Comment on above: Order Comment: [email or web address] [email or web address] Performed By: #### C BC, BMP, A1C WTH eA, HEPATIC, LIPID #### [place] [address] [place] #### IGG #### [facility] , Calcium [Mass/Vol] 8.8 mg/dL Normal 8.6-10.3 [facility] Comment on above: Order Comment: [email or web address] [email or web address] Performed By: #### C BC, BMP, A1C WTH eA, HEPATIC, LIPID #### [address] #### IGG #### [facility] , Chloride [Moles/Vol] 103 mmol/L Normal 98-107 The Counts Include 234 Beds At [facility] Comment on above: Order Comment: [email or web address] [email or web address] Performed By: #### C BC, BMP, A1C WTH eA, HEPATIC, LIPID #### [place] [address] [place] #### IGG #### [facility] , CO2 [Moles/Vol] 30.2 mmol/L Normal 21.0-31.0 [facility] Comment on above: Order Comment: [email or web address] [email or web address] Performed By: #### C BC, BMP, A1C WTH eA, HEPATIC, LIPID #### [place] [address] [place] #### IGG #### [facility] , Creatinine [Mass/Vol] 1.32 mg/dL High 0.70-1.30 The Counts Include [address] Beds At [facility] Comment on above: Order Comment: [email or web address] [email or web address] Performed By: #### C BC, BMP, A1C WTH eA, HEPATIC, LIPID #### [place] [address] [place] #### IGG #### [facility] , Estimated GFR 59.858 mL/Min Normal [facility] Comment on above: Order Comment: [email or web address] [email or web address] Performed By: #### C BC, BMP, A1C WTH eA, HEPATIC, LIPID #### [place] [address] [place] #### IGG #### [facility] , Glucose [Mass/Vol] 90 mg/dL Normal 70-100 [facility] Comment on above: Order Comment: [email or web address] Result Comment: [facility] Glucose Reference Range is dependent on time and content of last meal. Glucose of more than 200 mg/dL in a nonstressed, ambulatory subject supports the diagnosis of Diabetes Mellitus. ADA recommended reference range Performed By: #### C BC, BMP, A1C WTH eA, HEPATIC, LIPID #### [place] [address] [place] #### IGG #### [facility] , Potassium [Moles/Vol] 4.5 mmol/L Normal 3.5-5.1 The Counts Include [address] Beds At [facility] Comment on above: Order Comment: [email or web address] Performed By: #### C BC, BMP, A1C WTH eA, HEPATIC, LIPID #### [place] [address] [place] #### IGG #### [facility] , Sodium [Moles/Vol] 138 mmol/L Normal 136-145 [facility] Comment on above: Order Comment: [email or web address] Performed By: #### C BC, BMP, A1C WTH eA, HEPATIC, LIPID #### [place] [address] [place] #### IGG #### [facility] , Urea nitrogen [Mass/Vol] 25 mg/dL Normal 7-25 The Counts Include 234 Beds At [facility] Comment on above: Order Comment: [email or web address] Performed By: #### C BC, BMP, A1C WTH eA, HEPATIC, LIPID #### [place] [address] [place] #### IGG #### [facility] , Basophils Auto (Bld) [#/Vol] Ordered By: Jose Valdovinos on 10-19-2024 Basophils (Bld) [#/Vol] Automated basophil count 0.0-0.2 [facility] Basophils/100 WBC Auto (Bld) Ordered By: Jose Valdovinos on 10-19-2024 Basophils/100 WBC (Bld) Automated basophil % . [facility] Bilirubin.direct [Mass/volum e] in Serum or PlasmaOrdered By: Jose Valdovinos on 10-19-2024 Bilirubin.direct [Mass/Vol] Bilirubin.direct [Mass/volume] in Serum or Plasma 0.03-0.18 [facility] Bilirubin.total [Mass/volume ] in Serum or PlasmaOrdered By: Jose Valdovinos on 10-19-2024 Bilirubin [Mass/Vol] Bilirubin.total [Mass/volume] in Serum or Plasma 0.3-1.0 [facility] Blood estimated average gluc ose determination by estimation from glycated hemoglobinOrdered By: Jose Valdovinos on 10-19-2024 Average glucose Estimated from glycated hemoglobin (Bld) [Mass/Vol] Glucose mean value [Mass/volume] in Blood Estimated from glycated hemoglobin [facility] Calcium [Mass/volume] in Ser um or PlasmaOrdered By: Jose Valdovinos on 10-19-2024 Calcium [Mass/Vol] Calcium [Mass/volume ] in Serum or Plasma 8.6-10.3 [facility] Carbon dioxide, total [Moles /volume] in Serum or PlasmaOrdered By: Jose Valdovinos on 10-19-2024 CO2 [Moles/Vol] Carbon dioxide, tota l [Moles/volume] in Serum or Plasma 21.0-31.0 [facility] Chloride [Moles/volume] in S irma or PlasmaOrdered By: Jose Valdovinos on 10-19-2024 Chloride [Moles/Vol] Chloride [Moles/vol ume] in Serum or Plasma 98-107 [facility] Cholesterol [Mass/volume] in Serum or PlasmaOrdered By: Jose Valdovinos on 10-19-2024 Cholesterol [Mass/Vol] Cholesterol [Mass /volume] in Serum or Plasma 140-200 [facility] Comment on above: Chol less than 200 m g/dl low riskChol 201-239 mg/dl borderline riskChol 240 mg/dl and greater high risk Cholesterol in HDL [Mass/vol ume] in Serum or PlasmaOrdered By: Jose Valdovinos on 10-19-2024 Cholesterol in HDL [Mass/Vol] Serum or plasma high density lipoprotein (HDL) cholesterol measurement [facility] Comment on above: HDL CHOL ATP-III CLA SSIFICATION Cardiovascular RiskHDL > or equal to 60 mg/dL LOWHDL < 40 mg/dL HIGH Cholesterol in LDL Calc [Mas s/Vol]Ordered By: Jose Valdovinos on 10-19-2024 Cholesterol in LDL [Mass/Vol] Cholesterol in LDL [Mass/volume] in Serum or Plasma by calculation 0-100 [facility] Comment on above: LDL ATP III CLASSIFI CATIONLDL less than 100 mg/dL OptimalLDL 100-129 mg/dL Near or above optimalLDL 130-159 mg/dL Borderline highLDL 160-189 mg/dL HighLDL greater than 189 mg/dL Very high Cholesterol in VLDL Calc [Ma ss/Vol]Ordered By: Jose Valdovinos on 10-19-2024 Cholesterol in VLDL [Mass/Vol] Cholesterol in VLDL [Mass/volume] in Serum or Plasma by calculation [facility] Complete Blood Count Auto Di ffon 10-19-2024 Basophils (Bld) [#/Vol] 0.0 10*3/uL Normal 0.0-0.2 The Counts Include 234 Beds At [facility] Comment on above: Result Comment: PERF ORMED BY: [place] [address] PATHOLOGIST INCIDENT MANAGER KRISTA BRUNER M.D. Performed By: #### C BC, BMP, A1C WTH eA, HEPATIC, LIPID #### [facility] [address] [place] [address] #### IGG #### [facility] , Basophils/100 WBC (Bld) 0.8 % Normal . The Counts Include 234 Beds At [facility] Comment on above: Performed By: #### C BC, BMP, A1C WTH eA, HEPATIC, LIPID #### [place] [address] [place] #### IGG #### [facility] , Eosinophils (Bld) [#/Vol] 0.2 10*3/uL Normal 0.0-0.45 The Counts Include 234 Beds At [facility] Comment on above: Performed By: #### C BC, BMP, A1C WTH eA, HEPATIC, LIPID #### [place] [address] [place] #### IGG #### [facility] , Eosinophils/100 WBC (Bld) 5.0 % Normal . The Counts Include 234 Beds At [facility] Comment on above: Performed By: #### C BC, BMP, A1C WTH eA, HEPATIC, LIPID #### [address] #### IGG #### [facility] , Erythrocyte distribution width (RBC) [Ratio] 13.1 % Normal 12.0-14.8 The Counts Include 234 Beds At [facility] Comment on above: Performed By: #### C BC, BMP, A1C WTH eA, HEPATIC, LIPID #### [place] [address] [place] #### IGG #### [facility] , Hematocrit (Bld) [Volume fraction] 46.9 % Normal 38.8-50.0 The Counts Include 234 Beds At [facility] Comment on above: Performed By: #### C BC, BMP, A1C WTH eA, HEPATIC, LIPID #### [place] [address] [place] #### IGG #### [facility] , Hemoglobin (Bld) [Mass/Vol] 16.3 g/dL Normal 13.0-17.0 The Counts Include 234 Beds At [facility] Comment on above: Performed By: #### C BC, BMP, A1C WTH eA, HEPATIC, LIPID #### [place] [address] [place] #### IGG #### [facility] , Lymphocytes (Bld) [#/Vol] 0.9 10*3/uL Low 1.00-4.8 The Counts Include 234 Beds At [facility] Comment on above: Performed By: #### C BC, BMP, A1C WTH eA, HEPATIC, LIPID #### [address] #### IGG #### [facility] , Lymphocytes/100 WBC (Bld) 20.5 % Normal . The Counts Include 234 Beds At [facility] Comment on above: Performed By: #### C BC, BMP, A1C WTH eA, HEPATIC, LIPID #### [address] #### IGG #### [facility] , MCH (RBC) [Entitic mass] 33.1 pg Normal 27.5-35.2 The Counts Include 234 Beds At [facility] Comment on above: Performed By: #### C BC, BMP, A1C WTH eA, HEPATIC, LIPID #### [address] #### IGG #### [facility] , MCV (RBC) [Entitic vol] 95.3 fL Normal 83.5-101 The Counts Include 234 Beds At [facility] Comment on above: Performed By: #### C BC, BMP, A1C WTH eA, HEPATIC, LIPID #### [address] #### IGG #### [facility] , Mean Corpuscular HGB Conc 34.7 g/dL Normal 32.5-35.6 The Counts Include 234 Beds At [facility] Comment on above: Performed By: #### C BC, BMP, A1C WTH eA, HEPATIC, LIPID #### [place] [address] [place] #### IGG #### [facility] , Monocytes (Bld) [#/Vol] 0.7 10*3/uL Normal 0.0-0.8 The Counts Include 234 Beds At [facility] Comment on above: Performed By: #### C BC, BMP, A1C WTH eA, HEPATIC, LIPID #### [facility] [address] #### IGG #### [facility] , Monocytes/100 WBC (Bld) 16.8 % Normal . The Counts Include 234 Beds At [facility] Comment on above: Performed By: #### C BC, BMP, A1C WTH eA, HEPATIC, LIPID #### [address] #### IGG #### [facility] , Neutrophils (Bld) [#/Vol] 2.4 10*3/uL Normal 1.8-7.7 The Counts Include 234 Beds At [facility] Comment on above: Performed By: #### C BC, BMP, A1C WTH eA, HEPATIC, LIPID #### [address] #### IGG #### [facility] , Neutrophils/100 WBC (Bld) 56.9 % Normal . The Counts Include 234 Beds At [facility] Comment on above: Performed By: #### C BC, BMP, A1C WTH eA, HEPATIC, LIPID #### [address] #### IGG #### [facility] , NRBC% 0.2 /100{WBC} Normal 0-0.5 [facility] Comment on above: Performed By: #### C BC, BMP, A1C WTH eA, HEPATIC, LIPID #### [place] [address] [place] #### IGG #### [facility] , Platelet mean volume (Bld) [Entitic vol] 8.7 fL Normal 6.6-10.1 [facility] Comment on above: Performed By: #### C BC, BMP, A1C WTH eA, HEPATIC, LIPID #### [place] [address] [place] #### IGG #### [facility] , Platelets (Bld) [#/Vol] 150 10*3/uL Normal 150-450 The Counts Include 234 Beds At [facility] Comment on above: Performed By: #### C BC, BMP, A1C WTH eA, HEPATIC, LIPID #### [facility] [address] [place] [address] [place] #### IGG #### [facility] , RBC (Bld) [#/Vol] 4.92 10*6/uL Normal 3.90-5.60 [facility] Comment on above: Performed By: #### C BC, BMP, A1C WTH eA, HEPATIC, LIPID #### [facility] [address] [place] [address] [place] #### IGG #### [facility] , WBC (Bld) [#/Vol] 4.2 10*3/uL Normal 4.1-10.5 [facility] Comment on above: Performed By: #### C BC, BMP, A1C WTH eA, HEPATIC, LIPID #### [facility] [address] [place] [address] [place] #### IGG #### [facility] , Creatinine [Mass/volume] in Serum or PlasmaOrdered By: Jose Valdovinos on 10-19-2024 Creatinine [Mass/Vol] Creatinine [Mass/v olume] in Serum or Plasma High 0.70-1.30 [facility] Eosinophils Auto (Bld) [#/Vo l]Ordered By: Jose Valdovinos on 10-19-2024 Eosinophils (Bld) [#/Vol] Automated eosinophil count 0.0-0.45 [facility] Eosinophils/100 WBC Auto (Bl d)Ordered By: Jose Valdovinos on 10-19-2024 Eosinophils/100 WBC (Bld) Automated eosinophil % . [facility] Erythrocyte distribution wid th Auto (RBC) [Ratio]Ordered By: Jose Valdovinos on 10-19-2024 Erythrocyte distribution width (RBC) [Ratio] Erythrocyte distribution width [Ratio] by Automated count 12.0-14.8 [facility] Globulin Calc (S) [Mass/Vol] Ordered By: Jose Valdovinos on 10-19-2024 Globulin (S) [Mass/Vol] Serum globulin measurement by calculation (mass/volume) [facility] Glucose [Mass/volume] in Ser um or PlasmaOrdered By: Jose Valdovinos on 10-19-2024 Glucose [Mass/Vol] Glucose [Mass/volume ] in Serum or Plasma 70-100 [facility] Comment on above: ADA recommended refe rence rangeRandom Glucose Reference Range is dependent on time and content of last meal. Glucose of more than 200 mg/dL in a nonstressed, ambulatory subject supports the diagnosis of Diabetes Mellitus. Hematocrit Auto (Bld) [Volum e fraction]Ordered By: Jose Valdovinos on 10-19-2024 Hematocrit (Bld) [Volume fraction] Hematocrit [Volume Fraction] of Blood by Automated count 38.8-50.0 [facility] Hemoglobin A1c/Hemoglobin.to zahraa in BloodOrdered By: Jose Valdovinos on 10-19-2024 HbA1c (Bld) [Mass fraction] Hemoglobin A1c percentage 4.3-5.6 [facility] Comment on above: Increased risk for d iabetes: 5.7 - 6.4diabetes: >6.4glycemic control for adults with diabetes: <7.0 Hemoglobin [Mass/volume] in BloodOrdered By: Jose Valdovinos on 10-19-2024 Hemoglobin (Bld) [Mass/Vol] Hemoglobin [Mass/volume] in Blood 13.0-17.0 [facility] Hepatic Panelon 10-19-2024 Albumin [Mass/Vol] 4.4 g/dL Normal 3.5-5.7 [facility] Comment on above: Order Comment: [email or web address] Performed By: #### C BC, BMP, A1C WTH eA, HEPATIC, LIPID #### [facility] [address] [place] [address] [place] #### IGG #### [facility] , Albumin/Globulin [Mass ratio] 2.2 {ratio} Normal The Counts Include 234 Beds At [facility] Comment on above: Order Comment: [email or web address] Performed By: #### C BC, BMP, A1C WTH eA, HEPATIC, LIPID #### [facility] [address] [place] [address] [place] #### IGG #### [facility] , ALP [Catalytic activity/Vol] 51 U/L Normal 34-104 The Counts Include 234 Beds At [facility] Comment on above: Order Comment: [email or web address] Performed By: #### C BC, BMP, A1C WTH eA, HEPATIC, LIPID #### [address] #### IGG #### [facility] , ALT [Catalytic activity/Vol] 21 U/L Normal 7-52 The Counts Include 234 Beds At [facility] Comment on above: Order Comment: [email or web address] Performed By: #### C BC, BMP, A1C WTH eA, HEPATIC, LIPID #### [place] [address] [place] #### IGG #### [facility] , AST [Catalytic activity/Vol] 21 U/L Normal 13-39 The Counts Include 234 Beds At [facility] Comment on above: Order Comment: [email or web address] Performed By: #### C BC, BMP, A1C WTH eA, HEPATIC, LIPID #### [address] #### IGG #### [facility] , Bilirubin [Mass/Vol] 0.5 mg/dL Normal 0.3-1.0 The Counts Include 234 Beds At [facility] Comment on above: Order Comment: [email or web address] Performed By: #### C BC, BMP, A1C WTH eA, HEPATIC, LIPID #### [place] [address] [place] #### IGG #### [facility] , Bilirubin,Indirect 0.4 mg/dL Normal [facility] Comment on above: Order Comment: [email or web address] Performed By: #### C BC, BMP, A1C WTH eA, HEPATIC, LIPID #### [place] [address] [place] #### IGG #### [facility] , Bilirubin.indirect [Mass/Vol] 0.10 mg/dL Normal 0.03-0.18 The Counts Include 234 Beds At [facility] Comment on above: Order Comment: [email or web address] Performed By: #### C BC, BMP, A1C WTH eA, HEPATIC, LIPID #### [facility] [address] [place] [address] [place] #### IGG #### [facility] , Globulin (S) [Mass/Vol] 2.0 g/dL Normal The Counts Include 234 Beds At [facility] Comment on above: Order Comment: [email or web address] Performed By: #### C BC, BMP, A1C WTH eA, HEPATIC, LIPID #### [facility] [address] [place] [address] [place] #### IGG #### [facility] , Protein [Mass/Vol] 6.4 g/dL Normal 6.4-8.9 [facility] Comment on above: Order Comment: [email or web address] Performed By: #### C BC, BMP, A1C WTH eA, HEPATIC, LIPID #### [facility] [address] [place] [address] [place] #### IGG #### [facility] , Leukocytes [#/volume] correc herbert for nucleated erythrocytes in Blood by Automated counOrdered By: Jose Valdovinos on 10-19-2024 WBC corrected for nucl RBC Auto (Bld) [#/Vol] Leukocytes [#/volume] corrected for nucleated erythrocytes in Blood by Automated coun 4.1-10.5 [facility] Lipid Panelon 10-19-2024 Cholesterol [Mass/Vol] 145 mg/dL Normal 140-200 Th e Counts Include 234 Beds At [facility] Comment on above: Order Comment: [email or web address] Result Comment: Chol less than 200 mg/dl low risk Chol 201-239 mg/dl borderline risk Chol 240 mg/dl and greater high risk Performed By: #### C BC, BMP, A1C WTH eA, HEPATIC, LIPID #### [facility] [address] [place] [address] [place] #### IGG #### [facility] , Cholesterol in HDL [Mass/Vol] 36 mg/dL Normal 23-92 The Counts Include 234 Beds At [facility] Comment on above: Order Comment: [email or web address] Result Comment: HDL CHOL ATP-III CLASSIFICATION Cardiovascular Risk HDL > or equal to 60 mg/dL LOW HDL < 40 mg/dL HIGH Performed By: #### C BC, BMP, A1C WTH eA, HEPATIC, LIPID #### [place] [address] [place] #### IGG #### [facility] , Cholesterol.total/Chol esterol in HDL [Mass ratio] 4.0 {ratio} Normal <5.0 The Counts Include 234 Beds At [facility] Comment on above: Order Comment: [email or web address] Performed By: #### C BC, BMP, A1C WTH eA, HEPATIC, LIPID #### [place] [address] [place] #### IGG #### [facility] , LDL Cholesterol,Calculated 77 mg/dL Normal 0-100 [facility] Comment on above: Order Comment: [email or web address] Result Comment: LDL ATP III CLASSIFICATION LDL less than 100 mg/dL Optimal LDL 100-129 mg/dL Near or above optimal LDL 130-159 mg/dL Borderline high LDL 160-189 mg/dL High LDL greater than 189 mg/dL Very high Performed By: #### C BC, BMP, A1C WTH eA, HEPATIC, LIPID #### [place] [address] [place] #### IGG #### [facility] , Triglyceride w/Reflex 162 mg/dL High 0-149 The Counts Include 234 Beds At [facility] Comment on above: Order Comment: [email or web address] Result Comment: TRIG ATP III CLASSIFICATION TRIG less than 150 mg/dL Normal TRIG 150-199 mg/dL Borderline high TRIG 200-500 mg/dL High TRIG greater than 500 mg/dL Very high Standard traceable to the Center for Disease Conrtrol and Prevention (CDC) test method. Performed By: #### C BC, BMP, A1C WTH eA, HEPATIC, LIPID #### [place] [address] [place] #### IGG #### [facility] , VLDL CHOLESTEROL 32 mg/dL Normal [facility] Comment on above: Order Comment: [email or web address] Performed By: #### C BC, BMP, A1C WTH eA, HEPATIC, LIPID #### [facility] [address] #### IGG #### [facility] , Lymphocytes Auto (Bld) [#/Vo l]Ordered By: Jose Valdovinos on 10-19-2024 Lymphocytes (Bld) [#/Vol] Lymphocytes [#/volume] in Blood by Automated count Low 1.00-4.8 [facility] Lymphocytes/100 WBC Auto (Bl d)Ordered By: Jose Valdovinos on 10-19-2024 Lymphocytes/100 WBC (Bld) Lymphocytes/100 leukocytes in Blood by Automated count . [facility] MCH Auto (RBC) [Entitic mass ]Ordered By: oJse Valdovinos on 10-19-2024 MCH (RBC) [Entitic mass] MCH [Entitic mass] by Automated count 27.5-35.2 [facility] MCHC Auto (RBC) [Mass/Vol]Or dered By: Jose Valdovinos on 10-19-2024 MCHC (RBC) [Mass/Vol] MCHC [Mass/volume] by Automated count 32.5-35.6 [facility] MCV Auto (RBC) [Entitic vol] Ordered By: Jose Valdovinos on 10-19-2024 MCV (RBC) [Entitic vol] MCV [Entitic volume] by Automated count 83.5-101 [facility] Monocytes Auto (Bld) [#/Vol] Ordered By: Jose Valdovinos on 10-19-2024 Monocytes (Bld) [#/Vol] Automated blood monocyte count 0.0-0.8 [facility] Monocytes/100 WBC Auto (Bld) Ordered By: Jose Valdovinos on 10-19-2024 Monocytes/100 WBC (Bld) Automated monocyte % . [facility] Neutrophils Auto (Bld) [#/Vo l]Ordered By: Jose Valdovinos on 10-19-2024 Neutrophils (Bld) [#/Vol] Neutrophils [#/volume] in Blood by Automated count 1.8-7.7 [facility] Neutrophils/100 WBC Auto (Bl d)Ordered By: Jose Valdovinos on 10-19-2024 Neutrophils/100 WBC (Bld) Automated neutrophil % . [facility] No Panel InformationOrdered By: Jose Valdovinos on 10-19-2024 Estimated GFR (CKD-EPI) 59.858 mL/Min [facility] Creatinine Clearance (Chem N/A [facility] Nucleated erythrocytes [Pres ence] in Blood by Automated countOrdered By: Jose Valdovinos on 10-19-2024 Nucleated RBC Auto Ql (Bld) Nucleated erythrocytes [Presence] in Blood by Automated count 0-0.5 [facility] Platelet mean volume Auto (B ld) [Entitic vol]Ordered By: Jose Valdovinos on 10-19-2024 Platelet mean volume (Bld) [Entitic vol] Platelet mean volume [Entitic volume] in Blood by Automated count 6.6-10.1 [facility] Platelets Auto (Bld) [#/Vol] Ordered By: Jose Valdovinos on 10-19-2024 Platelets (Bld) [#/Vol] Platelets [#/volume] in Blood by Automated count 150-450 [facility] Potassium [Moles/volume] in Serum or PlasmaOrdered By: Jose Valdovinos on 10-19-2024 Potassium [Moles/Vol] Potassium [Moles/v olume] in Serum or Plasma 3.5-5.1 [facility] Protein [Mass/volume] in Ser um or PlasmaOrdered By: Jose Valdovinos on 10-19-2024 Protein [Mass/Vol] Protein [Mass/volume ] in Serum or Plasma 6.4-8.9 [facility] RBC Auto (Bld) [#/Vol]Ordere d By: Jose Valdovinos on 10-19-2024 RBC (Bld) [#/Vol] Erythrocytes [#/volu me] in Blood by Automated count 3.90-5.60 [facility] Serum or plasma albumin/glob ulin mass ratioOrdered By: Jose Valdovinos on 10-19-2024 Albumin/Globulin [Mass ratio] Serum or plasma albumin/globulin mass ratio [facility] Serum or plasma anion gap de terminationOrdered By: Jose Valdovinos on 10-19-2024 Anion gap [Moles/Vol] Serum or plasma an ion gap determination 6.0-15.0 [facility] Serum or plasma non-glucuron idated bilirubin measurement (mass/volume)Ordered By: Jose Valdovinos on 10-19-2024 Bilirubin.indirect [Mass/Vol] Serum or plasma non-glucuronidated bilirubin measurement (mass/volume) [facility] Serum or plasma total choles terol/high density lipoprotein (HDL) cholesterol mass ratOrdered By: Jose Valdovinos on 10-19-2024 Cholesterol.total/Chol esterol in HDL [Mass ratio] Serum or plasma total cholesterol/high density lipoprotein (HDL) cholesterol mass rat <5.0 [facility] Sodium [Moles/volume] in Ser um or PlasmaOrdered By: Jose Valdovinos on 10-19-2024 Sodium [Moles/Vol] Sodium [Moles/volume ] in Serum or Plasma 136-145 [facility] Thyroid Stimulating Hormoneo n 10-19-2024 TSH Qn 2.46 m[IU]/L Normal 0.45-5.33 [facility] Comment on above: Order Comment: [email or web address] Result Comment: PERF ORMED BY: [place] [address] PATHOLOGIST INCIDENT MANAGER KRISTA BRUNER M.D. Performed By: #### C BC, BMP, A1C WTH eA, HEPATIC, LIPID #### [facility] [address] #### IGG #### [facility] , Thyrotropin [Units/volume] i n Serum or PlasmaOrdered By: Jose Valdovinos on 10-19-2024 TSH Qn Thyrotropin [Units/volume] in Serum or Plasma 0.45-5.33 [facility] Thyroxine (T4) Totalon 10-19 T4 [Mass/Vol] 8.70 ug/dL Normal 5.39-11.82 [facility] Comment on above: Order Comment: [email or web address] Performed By: #### C BC, BMP, A1C WTH eA, HEPATIC, LIPID #### [facility] [address] [place] [address] [place] #### IGG #### [facility] , Thyroxine (T4) [Mass/volume] in Serum or PlasmaOrdered By: Jose Valdovinos on 10-19-2024 T4 [Mass/Vol] Thyroxine (T4) [Mass/volume] in Serum or Plasma 5.39-11.82 [facility] Triglyceride [Mass/volume] i n Serum or PlasmaOrdered By: Jose Valdovinos on 10-19-2024 Triglyceride [Mass/Vol] Triglyceride [Mass/volume] in Serum or Plasma High 0-149 [facility] Comment on above: TRIG ATP III CLASSIF ICATIONTRIG less than 150 mg/dL NormalTRIG 150-199 mg/dL Borderline highTRIG 200-500 mg/dL High TRIG greater than 500 mg/dL Very highStandard traceable to the Center for Disease Conrtrol and Prevention (CDC) test method. Urea nitrogen [Mass/volume] in Serum or PlasmaOrdered By: Jose Valdovinos on 10-19-2024 Urea nitrogen [Mass/Vol] Urea nitrogen [Mass/volume] in Serum or Plasma 7-25 [facility] Vitamin B12on 10-19-2024 Cobalamin (Vitamin B12) [Mass/Vol] 344 pg/mL Normal 180-914 The Counts Include 234 Beds At [facility] Comment on above: Order Comment: [email or web address] Performed By: #### C BC, BMP, A1C WTH eA, HEPATIC, LIPID #### [facility] [address] [place] [address] [place] #### IGG #### [facility] , Vitamin B12 ser/plasOrdered By: Jose Valdovinos on 10-19-2024 Cobalamin (Vitamin B12) [Mass/Vol] Vitamin B12 ser/plas 180-914 [facility] WBC Auto (Bld) [#/Vol]Ordere d By: Jose Obdiane on 10-19-2024 WBC (Bld) [#/Vol] Leukocytes [#/volume ] in Blood by Automated count 4.1-10.5 [facility] CNPNon 10-06-2024 CNPN Telephone (NEADFV) ----- MARY JIMENEZ ([id number]) 1960 M Date Time Provider Department 10/06/24 LOYDA STEELE NESANIAFV During your visit today, we recorded the following information about you: Sidra Duval 10/06/2024 8:53 AM Signed Mary from [facility] Management calling regarding pt injections - needs to speak with someone regarding what procedures pt has had done - would like to speak with someone to confirm - #[phone] Christine Gutierrez PA-C 10/06/2024 1:03 PM Signed I called return phone number on 10/06/2024 at 12:51 PM. Underwent Revision L4-pelvis instrumented fusion on 12/31/[address] Steele. They are interested in injection history. Requested operative report from C7-T1 interlaminar injection with Dr. Bhandari be faxed to them. [phone] Note faxed. 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 - QUEtiapine (SEROQUEL) 25 mg tablet TAKE [...] twice daily. Problem List As Of Date 10/06/2024 Noted Resolved Headache(784.0) [R51] 07/18/2014 08/18/2021 Adjustment [...] [S32.009K] 12/31/2021 Obesity, Class II, BMI 35-39.9 [E66.812] 01/01/2022 Anemia [D64.9] 01/04/2022 Lumbar radiculopathy [M54.16] (more content not included)... Normal [facility] 09-17-2024 [facility] ----- MARY JIMENEZ ([id number]) 1960 M Date Time Provider Department 09/17/24 GUILLAUME BHANDARI [facility] During your visit today, we recorded the following information about you: Li Rosenbaum LPN 09/17/2024 9:49 AM Signed Post Spine Injection phone call: 09/17/24 Called patient to review post procedure questions, but patient unavailable. Left vm for patient to give office a call back to go through questions. [facility] message also sent to patient and informed he can respond through message as well. Anni Douglas RN 09/21/2024 2:59 PM Signed Left message on voicemail for patient to call office back regarding Post injection call. Injection was done on 09/15. [facility] message was already sent on 09/17 Allergies As of Date: 09/17/2024 Noted Allergy Reaction PENICILLINS 06/07/2014 10 - Anaphylaxis LATEX 09/04/2016 2 - Rash Date Reviewed: 09/15/2024 Reviewed by: Vicente Spangler, RN - Fully Assessed Reason for Visit: Post Injection Questions [Other] Prescriptions as of 09/21/2024 - methylPREDNISolone (MEDROL DOSE-PACK) 4 mg Dose-Pack As Instructed per package - Pregabalin (LYRICA) 200 mg capsule Take 1 capsule by mouth three times daily for 90 days. - QUEtiapine (SEROQUEL) 25 mg tablet TAKE [...] twice daily. Problem List As Of Date 09/17/2024 Noted Resolved Headache(784.0) [R51] 07/18/2014 08/18/2021 Adjustment [...] [S32.009K] 12/31/2021 Obesity, Class II, BMI 35-39.9 [E66.812] 01/01/2022 Anemia [D64.9] 01/04/2022 Lumbar radiculopathy [M54.16] 05/13/2022 Cervical disc disorder with radiculopathy [M50.*09/15/2024 Encount (more content not included)... Normal [facility] [id number] 09-15-2024 [id number] HNO ID: [id number] Author: VICENTE SPANGLER RN Service: ? Author Type: Registered Nurse Type: [id number] Filed: 09/15/2024 09:55 Note Text: [facility] Post-Procedure Pain Diary- Group 3 You MUST bring this diary with you to your follow-up appointment Date: ____/____/____ Injection Time: am/pm Draw where your pain is BEFORE the procedure Please indicate your pain level BEFORE the procedure At Rest 0 1 2 3 4 5 6 7 8 9 10 With Movement 0 1 2 3 4 5 6 7 8 9 10 Additional Comments? POST- PROCEDURE Pain Diary * Please score pain only for the area of pain treated with this procedure * 1 week after procedure At Rest With Movement 0 1 2 3 4 5 6 7 8 9 10 0 1 2 3 4 5 6 7 8 9 10 % Improvement 0 20 40 60 80 100 Comments: 2 weeks after procedure At Rest With Movement 0 1 2 3 4 5 6 7 8 9 10 0 1 2 3 4 5 6 7 8 9 10 % Improvement 0 20 40 60 80 100 Comments: Normal [facility] CNPNery 09-15-2024 CNPN Telephone (NIQ) ----- MARY JIMENEZ ([id number]) 1960 M Date Time Provider Department 09/15/24 GUILLAUME BHANDARI [facility]IG[facility] During your visit today, we recorded the following information about you: Kristi Rehman 09/15/2024 1:14 PM Signed Recvd: Med hold clearance DOS 09/12/24 Allergies As of Date: 09/15/2024 Noted Allergy Reaction PENICILLINS 06/07/2014 10 - Anaphylaxis LATEX 09/04/2016 2 - Rash Date Reviewed: 09/15/2024 Reviewed by: Vicente Spangler RN - Fully Assessed Prescriptions as of 09/16/2024 - methylPREDNISolone (MEDROL DOSE-PACK) 4 mg Dose-Pack As Instructed per package - Pregabalin (LYRICA) 200 mg capsule Take 1 capsule by mouth three times daily for 90 days. - QUEtiapine (SEROQUEL) 25 mg tablet TAKE [...] twice daily. Problem List As Of Date 09/15/2024 Noted Resolved Headache(784.0) [R51] 07/18/2014 08/18/2021 Adjustment [...] [S32.009K] 12/31/2021 Obesity, Class II, BMI 35-39.9 [E66.812] 01/01/2022 Anemia [D64.9] 01/04/2022 Lumbar radiculopathy [M54.16] 05/13/2022 Cervical disc disorder with radiculopathy [M50.*09/15/2024 Encounter Status:Closed by ANNI DOUGLAS on 09/16/[address] [facility] HISTORY PHYSICALon HISTORY PHYSICAL HNO ID: [id number] Author: GUILLAUME BHANDARI DO Service: Physical Medicine AND Rehabilitation Author Type: Fellow Type: H&P Filed: 09/15/2024 09:32 Note Text: ----- Attestation signed by Guillaume Bhandari DO at 09/15/2024 9:32 AM Attending Note: Maldonado findings confirmed. Discussed with the fellow and the patient. All information in the note above was confirmed by me and edited as necessary for accurate information. Plan as outlined. ----- PROCEDURAL HISTORY AND PHYSICAL EXAM SERVICE DATE and TIME: September 15, 2024 at 9:19 AM The History and Physical (completed in the past 30 days) has been reviewed and the patient has been examined. The contents accurately reflect the patient's condition with the following additions or revisions since the HANDP was completed. Patient referred by Loyda Steele MD . ASSESSMENT AND PLAN Lumbar radiculopathy [M54.16] Radiculopathy of lumbar region [M54.16] Cervical disc disorder with radiculopathy [M50.10] Patient here today for C7-T1 interlaminar epidural steroid injection. SUBJECTIVE HPI: This is a 64 year old male who presents with pain located in the neck with radiation into the left arm. Pain today is 6/10. PAST MEDICAL HISTORY: PAST MEDICAL HISTORY Diagnosis Date Anxiety Dyslipidemia Hypertension Obesity 09/12/2021 Obstructive sleep apnea Stroke (HCC) Urinary retention PAST SURGICAL HISTORY: PAST SURGICAL HISTORY Procedure Laterality Date PAST SURGICAL HISTORY OF 12/07/2014 L4-5 PAST SURGICAL HISTORY OF Bilateral shoulder PAST SURGICAL HISTORY OF Bilateral knees REVISE MEDIAN N/CARPAL TUNNEL SURG Left MEDICATIONS: Prior to Admission medications as of 07/20/24 1253 Medication Sig Last Dose Taking Pregabalin (LYRICA) 200 mg capsule Take 1 capsule by mouth three times daily for 90 days. 09/14/2024 Yes telmisartan (MICARDIS) 80 mg tablet Take 80 mg by mouth once daily. 09/14/2024 Yes docusate sodium (COLACE) 100 mg capsule Take 1 capsule by mouth twice daily. 09/14/2024 Yes finasteride (PROSCAR) 5 mg tablet Take 5 mg by mouth daily at bedtime. 09/14/2024 Yes CALCIUM CARBONATE/VITAMIN D3 (CALCIUM 600 + D ORAL) Take 1 tablet by mouth once daily. 09/14/2024 Yes doxepin capsule 10 mg Take 10 mg by mouth daily at bedtime. Takes 2 tabs at bedtime 09/14/2024 Yes atorvastatin (LIPITOR) 80 mg tablet Take 80 mg by mouth daily at bedtime. 09/14/2024 Yes furosemide (LASIX) 40 mg tablet Take 40 mg by mouth once daily. 09/14/2024 Yes doxazosin (CARDURA) 4 mg tablet Take 4 mg by mouth once daily. 09/14/2024 Yes metoprolol succinate XL, long acting, (TOPROL XL) 50 mg 24 hr tablet Take 50 mg by mouth once daily. 09/14/2024 Yes fluticasone (FLONASE) 50 mcg/actuation nasal spray Use 2 Sprays in each nostril twice daily. 09/14/2024 Yes methylPREDNISolone (MEDROL DOSE-PACK) 4 mg Dose-Pack As Instructed per package QUEtiapine (SEROQUEL) 25 mg tablet TAKE ONE TABLET BY MOUTH EVERY NIGHT AT BEDTIME lactobacillus combination no.4 3 billion cell cap Take 1 capsule by mouth once daily. clopidogrel (PLAVIX) 75 mg tablet Take 1 tablet by mouth once daily. Please hold this medication until post op day 10 docosahexaenoic acid/epa (FISH OIL ORAL) Take 5 capsules by mouth once daily. fremanezumab-vfrm (AJOVY SYRINGE SUBCUTANEOUS) Inject 250 mg/mL subcutaneously. every 28 days for migraines CHROMIUM PICOLINATE ORAL Take 800 mcg by mouth once daily. 09/07/2024 MAGNESIUM ORAL Take 400 mg by mouth once daily. 09/07/2024 LACTOBACILLUS ACIDOPHILUS (PROBIOTIC ACIDOPHILUS ORAL) Take 1 capsule by mouth once daily. 09/07/2024 dicyclomine (BENTYL) 10 mg capsule Take 20 mg by mouth as needed. 4 times daily as needed eletriptan (RELPAX) 40 mg tablet Take 40 mg by mouth as needed. may repeat in 2 hours if necessary DULoxetine (CYMBALTA) 30 mg capsule Take 1 capsule by mouth once daily. Take with 60 mg for 90 mg total dose. Patient taking differently: Take 30 mg by mouth three times a day. Takes 30 mg three times daily per patient baclofen (LIORESAL) 20 mg tablet Take 20 mg by mouth daily at bedtime. cyanocobalamin (VITAMIN B-12) 1,000 mcg tab Take 1,000 mcg by mouth once daily. ALLERGIES: ALLERGIES Allergen Reactions Penicillins Anaphylaxis Latex Rash OBJECTIVE PHYSICAL EXAM: VITAL SIGNS: 09/15/24 0850 BP: 128/71 Pulse: 82 Resp: 18 Temp: 36.2 ?C (97.1 ?F) TempSrc: Temporal SpO2: 93% AIRWAY: Patent, Full neck flexion and extension, Uvula visible RESP: Non-labored breathing. CV: Extremities are warm and well-perfused. Motor: Upper extremity strength grossly intact The remainder of the physical exam is noncontributory. Risk, benefits, medications, personnel, and process of the procedure was explained to the patient with explicit agreement by patie (more content not included)... Normal [facility] HISTORY PHYSICAL HNO ID: [id number] Author: GWENDOLYN SPIVEY APRN.TECHNICAL APPLICATIONS SCIENTIST Service: ? Author Type: Nurse Practitioner Type: H&P Filed: 09/15/2024 09:09 Note Text: PROCEDURAL SEDATION HISTORY AND PHYSICAL EXAM SERVICE DATE: 09/15/2024 SERVICE TIME: 9:09 AM Subjective HPI: This is a 64 year old year old male who presents with Lumbar radiculopathy [M54.16] Cervical disc disorder with radiculopathy [M50.10] Has elected for below procedure. PAST ANESTHESIA HISTORY: No history of adverse event PAST MEDICAL HISTORY Diagnosis Date Anxiety Dyslipidemia Hypertension Obesity 09/12/2021 Obstructive sleep apnea Stroke (HCC) Urinary retention PAST SURGICAL HISTORY Procedure Laterality Date PAST SURGICAL HISTORY OF 12/07/2014 L4-5 PAST SURGICAL HISTORY OF Bilateral shoulder PAST SURGICAL HISTORY OF Bilateral knees REVISE MEDIAN N/CARPAL TUNNEL SURG Left Prior to Admission medications as of 07/20/24 1253 Medication Sig Last Dose Taking Pregabalin (LYRICA) 200 mg capsule Take 1 capsule by mouth three times daily for 90 days. 09/14/2024 Yes telmisartan (MICARDIS) 80 mg tablet Take 80 mg by mouth once daily. 09/14/2024 Yes docusate sodium (COLACE) 100 mg capsule Take 1 capsule by mouth twice daily. 09/14/2024 Yes finasteride (PROSCAR) 5 mg tablet Take 5 mg by mouth daily at bedtime. 09/14/2024 Yes CALCIUM CARBONATE/VITAMIN D3 (CALCIUM 600 + D ORAL) Take 1 tablet by mouth once daily. 09/14/2024 Yes doxepin capsule 10 mg Take 10 mg by mouth daily at bedtime. Takes 2 tabs at bedtime 09/14/2024 Yes atorvastatin (LIPITOR) 80 mg tablet Take 80 mg by mouth daily at bedtime. 09/14/2024 Yes furosemide (LASIX) 40 mg tablet Take 40 mg by mouth once daily. 09/14/2024 Yes doxazosin (CARDURA) 4 mg tablet Take 4 mg by mouth once daily. 09/14/2024 Yes metoprolol succinate XL, long acting, (TOPROL XL) 50 mg 24 hr tablet Take 50 mg by mouth once daily. 09/14/2024 Yes fluticasone (FLONASE) 50 mcg/actuation nasal spray Use 2 Sprays in each nostril twice daily. 09/14/2024 Yes methylPREDNISolone (MEDROL DOSE-PACK) 4 mg Dose-Pack As Instructed per package QUEtiapine (SEROQUEL) 25 mg tablet TAKE ONE TABLET BY MOUTH EVERY NIGHT AT BEDTIME lactobacillus combination no.4 3 billion cell cap Take 1 capsule by mouth once daily. clopidogrel (PLAVIX) 75 mg tablet Take 1 tablet by mouth once daily. Please hold this medication until post op day 10 docosahexaenoic acid/epa (FISH OIL ORAL) Take 5 capsules by mouth once daily. fremanezumab-vfrm (AJOVY SYRINGE SUBCUTANEOUS) Inject 250 mg/mL subcutaneously. every 28 days for migraines CHROMIUM PICOLINATE ORAL Take 800 mcg by mouth once daily. 09/07/2024 MAGNESIUM ORAL Take 400 mg by mouth once daily. 09/07/2024 LACTOBACILLUS ACIDOPHILUS (PROBIOTIC ACIDOPHILUS ORAL) Take 1 capsule by mouth once daily. 09/07/2024 dicyclomine (BENTYL) 10 mg capsule Take 20 mg by mouth as needed. 4 times daily as needed eletriptan (RELPAX) 40 mg tablet Take 40 mg by mouth as needed. may repeat in 2 hours if necessary DULoxetine (CYMBALTA) 30 mg capsule Take 1 capsule by mouth once daily. Take with 60 mg for 90 mg total dose. Patient taking differently: Take 30 mg by mouth three times a day. Takes 30 mg three times daily per patient baclofen (LIORESAL) 20 mg tablet Take 20 mg by mouth daily at bedtime. cyanocobalamin (VITAMIN B-12) 1,000 mcg tab Take 1,000 mcg by mouth once daily. ALLERGIES Allergen Reactions Penicillins Anaphylaxis Latex Rash Objective PHYSICAL EXAM: The remainder of the physical exam is noncontributory. GENERAL: Alert, no distress, cooperative AIRWAY: Airway Visualization of Uvula: Yes Mouth opening greater than 2 fingerbreadths: Yes Neck Full Range of Motion: Yes LUNGS: Lungs clear to auscultation CARDIAC: Regular rhythm,Regular rate Assessment/Plan BP 128/71 Pulse 82 Temp 36.2 ?C (97.1 ?F) (Temporal) Resp 18 SpO2 93% PAIN ASSESSMENT: PAIN EVALUATION 09/15/2024 0850 Pain Level: 6 Pain Location: Arm-Left Description: Numbness Intervention/Comfort measure: Reposition;Relaxation ASA Class: Active Problems: Lumbar radiculopathy [M54.16] Cervical disc disorder with radiculopathy [M50.10] Medication and Non-Pharmacologic VTE Prophylaxis/Anticoagulant s VTE Prophylaxis: N/A Provisional Diagnosis/Treatment Plan: Procedure(s) (LRB): CERVICAL EPIDURAL BLOCK W/INJECTION(S) NON NEUROLYTIC SUBSTANCE(S) W/IMAGE GUIDANCE (Left) SIGNATURE: Gwendolyn Spivey APRN.CNP PATIENT NAME: Mary Jimenez DATE: 09/15/2024 TIME: 9:09 AM Normal [facility] NURSING PROGon 09-15-2024 NURSING PROG HNO ID: [id number] Author: VICENTE SPANGLER RN Service: ? Author Type: Registered Nurse Type: Nursing Progress Note Filed: 09/15/2024 10:56 Note Text: Patient went to the restroom and walked out of ASC without receiving his DC instructions and nurse walking him out. Ex- was here to take him home, Nupur RN spoke with her prior to him leaving. Attempted to call patients cell, it will not take calls, called ex- cell and it went to voice mail. Charge nurse sent patient a [employer] message and information given to NM to reach out again and have DC instructions mailed to the patient. Patient has had back injections previously with Dr. Bhandari. Normal [facility] OPERATIVE NOon 09-15-2024 OPERATIVE NO HNO ID: [id number] Author: GUILLAUME BHANDARI DO Service: Physical Medicine AND Rehabilitation Author Type: Physician Type: Operative Report Filed: 09/15/2024 10:28 Note Text: PROCEDURE REPORT Surgery/Procedure Date: September 15, 2024 Interventionalist: Guillaume Bhandari DO Procedure(s): C7-T1 interlaminar epidural steroid injection Pre-Op/Pre-Procedure Diagnosis: Cervical disc disorder with radiculopathy Post-Op Diagnosis: same SUBJECTIVE: Mary Jimenez is a 64 year old male who presents to [facility] for a Cervical epidural steroid injection. 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 64 year old male who presents with pain located in the neck with radiation into the left arm. Pain today is 6/10. I have reviewed the nurses notes and [...] to procedure start/delivery of medication. PROCEDURE: Procedure: Cervical Epidural Steroid Injection Mary Jimenez was transferred to the Procedure Room. After placement of routine monitors (blood pressure, pulse oximetry, and heart rate monitored by dedicated nurse), the procedure was performed in the usual manner. Sedation: Yes: Moderate sedation; Versed 2 mg IV, given at 0936. See F archival for Conscious Sedation Record and informed consent. Total sedation time 34 minutes. Start time: 0939 Stop time: 1010 Fluoroscopy time: 1 minute 13 seconds Level: C7-T1 Technique: Patient positioned prone. Procedure area was [...] no CSF was visualized draining from needle. 3 cc of iohexol contrast was then injected. Fluoroscopic imaging was performed live in two views and showed epidural flow pattern. A solution of preservative free saline 3 cc and Dexamethasone 15 mg was injected. No paresthesias or pain [...] who verbalized understanding. I/primary surgeon/proceduralist performed the procedure with the fellow. I was assisted by Alejandro Kitchen DO and was present at bedside throughout entire procedure. Tasks performed included steering needle to appropriate location, administering contrast, and injecting medication. No complications were encountered. Estimated blood loss: none Specimens: none Implanted devices: none Drains: none Post procedure physical exam unchanged from pre procedure. Significant findings: Technically difficult procedure due to patient's body habitus and due to patient moving before/during procedure. Time required to sharmin the starting point was prolonged due to patient moving around. During the procedure he was able to stop actively moving, but while resting his elbows moved further out to his sides and his body was rolling slowly to the side on the table requiring us to tilt the table. Initial contrast was posterior. Lateral view seemed to be a better licensed retail supervisor of depth in this case. ASSESSMENT: Pre Procedure diagnosis: Cervical disc disorder with radiculopathy Post-Procedure diagnosis: same Pre Procedure Pain Level: same as above Post Procedure Pain Level: As documented in nursing notes and paper chart Purposeful response to verbal or tactile stimulation: Yes PLAN: Patient is to complete post-procedure pain diary and follow up with the ordering provider. Mary Jimenez was transferred to the recovery room and is to be discharged home in stable condition. Post op instructions reviewed with patient. DO Charles Gallardo [facility] Pamela 09-03-2024 [facility] Telephone (SPNMMN) ----- MARY JIMENEZ ([id number]) 1960 M Date Time Provider Department 09/03/24 GUILLAUME BHANDARI [facility] During your visit today, we recorded the following information about you: Li Rosenbaum LPN 09/03/2024 10:54 AM Signed Called and left patient a message for patient to give office a call back regarding his spine procedure on 09/15/24. Patient med list states he is taking Plavix need patient to give office a call back to inform he needs to stop 7 days before procedure Li Rosenbaum LPN 09/05/2024 9:[address] Bhandari: If he holds the Plavix for 7 days I will do the injection. Li Rosenbaum LPN 09/05/2024 10:20 AM Signed 2nd attempt to call patient. LVM for patient to give office a call back regarding His spine procedure on 09/15/24. Li Rosenbaum LPN 09/06/2024 1:19 PM Signed 3rd attempt to contact patient regarding his procedure 09/15/24 and to discuss medication. Patient not available. LVM to give office a call back. Also called Alternate Contact in his chart and LVM for them to have him give our office a call. Li Rosenbaum LPN 09/07/2024 10:18 AM Signed 4th Attempt to call patient. LVM for patient to give office a call back to review instructions and to discuss Plavix. Li Rosenbaum LPN 09/07/2024 2:40 PM Signed No response from patient. Closing Encounter. Macrina Grayson 09/08/2024 12:20 PM Signed Patient called; returning call from nurse; requesting call back; ph. [phone] Li Rosenbaum LPN 09/08/2024 3:[address] Bhandari: Plavix absolutely needs to be held for 7 days before this procedure in order to reduce risk of bleeding into the spinal canal and potential paralysis. I can't tell him to stop Plavix. He will have to decide with his prescribing provider. Called patient back regarding his procedure 09/15/24. No answer left vm for him to give office a call back Anni Douglas, RN 09/08/2024 3:25 PM Signed Can you please transfer me the call if he calls back. We need to talk to him. Thank you Caitlyn Woody 09/09/2024 10:58 AM Signed Patient called; returning call from nurse; requesting call back. Reached out to nursing, Anni was not available Please call. ph. [phone] Anni Douglas, RN 09/09/2024 11:08 AM Signed Spoke to patient advised he of information he verbalized understanding. He states that his provider has been not doing a lot lately. He has stopped the Plavix already and said they are not in today. He will get something in writing on Thursday even if he has to go their in person. Allergies As of Date: 09/03/2024 Noted Allergy Reaction PENICILLINS 06/07/2014 10 - Anaphylaxis LATEX 09/04/2016 2 - Rash Date Reviewed: 07/20/2024 Reviewed by: Rhonda Hay MA - Fully Assessed Reason for Visit: Preperations for Procedure Call [Other] Prescriptions as of 09/09/2024 - methylPREDNISolone (MEDROL DOSE-PACK) 4 mg Dose-Pack As Instructed per package - Pregabalin (LYRICA) 200 mg capsule Take 1 capsule by mouth three times daily for 90 days. - QUEtiapine (SEROQUEL) 25 mg tablet TAKE [...] tablet Take 50 mg by mouth once [place] (more content not included)... Normal [facility] 09-02-2024 [facility] Tele[facility] (SPNMMN) ----- MARY JIMENEZ ([id number]) 1960 M Date Time Provider Department 09/02/24 GUILLAUME BHANDARI [facility] During your visit today, we recorded the following information about you: Li Rosenbaum LPN 09/02/2024 2:19 PM Signed [facility] message sent to patient with Procedure Instructions Allergies As of Date: 09/02/2024 Noted Allergy Reaction PENICILLINS 06/07/2014 10 - Anaphylaxis LATEX 09/04/2016 2 - Rash Date Reviewed: 07/20/2024 Reviewed by: Rhonda Hay MA - Fully Assessed Reason for Visit: Preperations for Procedure [Other] Cmt: [facility] Prescriptions as of 09/02/2024 - methylPREDNISolone (MEDROL DOSE-PACK) 4 mg Dose-Pack As Instructed per package - Pregabalin (LYRICA) 200 mg capsule Take 1 capsule by mouth three times daily for 90 days. - QUEtiapine (SEROQUEL) 25 mg tablet TAKE [...] twice daily. Problem List As Of Date 09/02/2024 Noted Resolved Headache(784.0) [R51] 07/18/2014 08/18/2021 Adjustment [...] [S32.009K] 12/31/2021 Obesity, Class II, BMI 35-39.9 [E66.812] 01/01/2022 Anemia [D64.9] 01/04/2022 Lumbar radiculopathy [M54.16] 05/13/2022 Encounter Status:Closed by LI ROSENBAUM on 3/7/[address] [facility] Hemoglobinon 03-05-2025 Hemoglobin (Bld) [Mass/Vol] 16.1 g/dL Normal 13.0-17.0 The Counts Include [facility] Comment on above: Result Comment: PERF ORMED BY: [place] [address] PATHOLOGIST INCIDENT MANAGER KRISTA BRUNER M.D. Performed By: #### C BC, BMP, A1C WTH eA, HEPATIC, LIPID #### [address] #### IGG #### [facility] , Hemoglobin [Mass/volume] in BloodOrdered By: Rosey Dubose on 08-31-2024 Hemoglobin (Bld) [Mass/Vol] Hemoglobin [Mass/volume] in Blood 13.0-17.0 [facility] PSA Total (Not a Screen)on 0 08-31-2024 PSA Total (Not a Screen) 0.130 ng/mL Normal 0.000-4.00 0 The Counts Include [facility] Comment on above: Result Comment: Seri al tumor marker results determined by assays using different manufacturers or methods may not be comparable. Counts Include [facility] Laboratory capacitor pack press operator and method: Catapult DXI, CHEMILUMINESCENT IMMUNOASSAY. PERFORMED BY: [place] [address] PATHOLOGIST INCIDENT MANAGER KRISTA BRUNER M.D. Performed By: #### C BC, BMP, A1C WTH eA, HEPATIC, LIPID #### [address] #### IGG #### [facility] , Prostate specific Ag [Mass/v olume] in Serum or PlasmaOrdered By: Rosey Dubose on 08-31-2024 Prostate specific Ag [Mass/Vol] Prostate specific Ag [Mass/volume] in Serum or Plasma 0.000-4.00 0 [facility] Comment on above: Serial tumor marker results determined by assays using different manufacturers or methods may not be comparable.Counts Include [address] [facility] capacitor pack press operator and method:[employer] DXI, CHEMILUMINESCENT IMMUNOASSAY. Testosteroneon 08-31-2024 Testosterone 2.90 ng/mL Normal 1.75-7.81 [facility] Comment on above: Result Comment: PERF ORMED BY: [facility] [address] [place] [address] PATHOLOGIST INCIDENT MANAGER KRISTA BRUNER M.D. Performed By: #### C BC, BMP, A1C WTH eA, HEPATIC, LIPID #### [facility] [address] [id number] [place] #### IGG #### [facility] , Testosterone [Mass/volume] i n Serum or PlasmaOrdered By: Rosey Dubose on 08-31-2024 Testosterone [Mass/Vol] Testosterone [Mass/volume] in Serum or Plasma 1.75-7.81 [facility] CNPNon 08-25-2024 CNPN Telephone (NIQ) ----- MARY JIMENEZ ([id number]) 1960 Date Time Provider Department 08/25/24 GUILLAUME BHANDARI During your visit today, we recorded the following information about you: Lela Torres 08/25/2024 11:43 AM Signed Pt called; says his ride cancelled on him this morning; he cannot come for the injection procedure today. Pt wants to reschedule his injection for carmen. Transferred patient to [facility] scheduling team at ph: [phone] Allergies As of Date: 08/25/2024 Noted Allergy Reaction PENICILLINS 06/07/2014 10 - Anaphylaxis LATEX 09/04/2016 2 - Rash Date Reviewed: 07/20/2024 Reviewed by: Rhonda Hay MA - Fully Assessed Reason for Visit: Cancel injection for today [Other] Prescriptions as of 08/25/2024 - methylPREDNISolone (MEDROL DOSE-PACK) 4 mg Dose-Pack As Instructed per package - Pregabalin (LYRICA) 200 mg capsule Take 1 capsule by mouth three times daily for 90 days. - QUEtiapine (SEROQUEL) 25 mg tablet TAKE [...] twice daily. Problem List As Of Date 08/25/2024 Noted Resolved Headache(784.0) [R51] 07/18/2014 08/18/2021 Adjustment [...] [S32.009K] 12/31/2021 Obesity, Class II, BMI 35-39.9 [E66.812] 01/01/2022 Anemia [D64.9] 01/04/2022 Lumbar radiculopathy [M54.16] 05/13/2022 Encounter Status:Closed by LELA TORRES on 08/25/[address] [facility] CNCOon 08-17-2024 CNCO Letter Text Normal [facility] CNCOon 08-16-2024 CNCO Letter Text Normal [facility] CNPNon 08-10-2024 CNPN Telephone ([facility]) ----- MARY JIMENEZ ([id number]) 1960 M Date Time Provider Department 08/10/24 GUILLAUME BHANDARI [facility] During your visit today, we recorded the following information about you: Li Rosenbaum LPN 08/10/2024 6:04 PM Signed Called and left patient a message for patient to give office a call back regarding his spine procedure on 08/25/24 Patient med list shows patient is taking Plavix 75mg. Need to review with patient. Li Rosenbaum LPN 08/12/2024 9:05 AM Signed 2nd attempt to call patient. Lvm for patient to give office a call back regarding his spine procedure on 08/25/24 and discuss medication. Li Rosenbaum LPN 08/15/2024 3:58 PM Signed 3rd attempt to call patient to review procedure instructions and discuss his medications. LVM to give office a call back. Macrina Grayson 08/15/2024 4:28 PM Signed Patient called; returning call from nurse; asked patient if he is still taking plavix and patient answered yes - states he usually stops this rx one week before; requesting call back; ph. [phone] Li Rosenbaum LPN 08/15/2024 4:45 PM Signed Phoned patient and spoke with patient to confirm appointment for Mary Easleyt for spine procedure on 08/25/24. Patient notified that [facility] will call patient the night before with the time to arrive for injection. Patient verbalized understanding of the following: -Provided education on spine procedure and answered questions related to spine injection procedure. -City Assessor is needed to drive patient home: Yes, patient stated his insurance will have a ride for him. Informed they will need to provide a ride back home. Patient verbalized understanding. -NPO 6 hours prior to appointment, ok to take morning medications with sip of water. -Not to take any pain medications the day of injection to see how well injection works. -Do not take any NSAIDs/anti-inflammatorie s (mobic, ibuprofen, advil, aleve, etc) the day of procedure for all lumbar, hip, and sacroiliac joint procedures. Hold NSAIDs for 1 day prior to procedure for cervical cases. Allergies reviewed: Yes Allergy to IV contrast dye or steroids: No and not allergic to shellfish Taking any antiplatelet/anticoagulan t (blood thinners): Yes, Plavix 75mg. Informed him he will need to be off of this 7 days before surgery. He stated Dr. Rodriges is the prescribing provider at [facility] ph: [phone]. Taking aspirin 81mg: No Any open wounds/sores?: No Taking Antibiotics?: No Patient given number [phone], spine injections schedulers, if there is any need to reschedule/ change appointment during normal business hours. Active MyChart users were informed to read MyChart procedure instructions prior to appointment. AMBULATORY PATIENT EDUCATION TOPIC: SPINE INJECTION PROCEDURE, PRE-INJECTION AND POST- INJECTION INSTRUCTIONS READINESS TO LEARN COGNITIVE ABILITY: ALERT AND ORIENTED MOTIVATION TO LEARN: Eager FAMILY SUPPORT: Unable to assess - Family not present INSTRUCTION PROVIDED TO: Patient PATIENT LEARNS BEST BY: INDIVIDUAL INSTRUCTION FACTORS AFFECTING LEARNING: None PHYSICAL LIMITATIONS AFFECTING LEARNING: None LEARNING RESPONSE METHOD OF INSTRUCTION: TEACH BACK AND INDIVIDUAL INSTRUCTION PATIENT / FAMILY RESPONSE: VERBALIZED UNDERSTANDING OF PRE AND POST INJECTION INSTRUCTIONS Li Rosenbaum LPN 08/15/2024 4:45 PM Signed Will call Dr. Rodriges at [facility] to get a fax number to send a clearance letter. Li Rosenbaum LPN 08/16/2024 9:[address] Rodriges's office at [phone]. Delinquent Notice Machine Operator stated the patient see's Dr. Carson and he doesn't normally clear patient's to be off of medications before procedure's he leaves that up to provider performing procedure and patient. Will inform C.C. Anni Sarabia, TONY 08/16/2024 2:52 PM Signed I have created a letter and faxed to Dr. Kg Carson at . Anni Douglas RN 08/17/2024 9:00 AM Signed Spoke to Zuleika at the office and she still advised me that Dr. Carson does not determine clearance. I explained to her that Dr. Bhandari is not the prescribing provider. Dr. Bhandari said can't do the procedure unless Plavix is held for 7 days. As long as his prescribing provider isn't against him holding the medication then he can proceed. She wanted me to fax over the letter and they will review. They did not get my initial fax. Fax number . Faxed. Anni Douglas RN 08/17/2024 2:51 PM Signed Left message on voicemail for patient to call office back or to read K[employer] message Anni Douglas RN 08/18/2024 10:01 AM Signed Left message on voicemail for patient to call office back advising that we needed to hear back from provider today about his Plavix and stopping today. Unfortunately if you have taken or they do not respond will have to cancel the injection. Anni Douglas RN (more content not included)... Normal [facility] CT LUMBAR SPINE WO IVCONon 0 08-09-2024 CT LUMBAR SPINE WO IVCON * * *Final Report* * * DATE OF EXAM: Aug 09 2024 12:05PM [facility] 0508 - CT LUMBAR SPINE WO IVCON / PROCEDURE REASON: Radiculopathy of lumbar region * * * * Physician Interpretation * * * * RESULT: EXAMINATION: CT LUMBAR SPINE WO IVCON CLINICAL HISTORY: Radiculopathy of lumbar region. TECHNIQUE: Spiral, high resolution axial unenhanced images were obtained from the thoracolumbar junction to the sacrum with sagittal and coronal planar reconstructions. MQ: CTLSPWO_3 CT Radiation dose: Integrated Dose-Length Product (DLP) for this visit = 975 mGy*cm. CT Dose Reduction Employed: Automated exposure control (AEC) COMPARISON: Prior CT of the lumbosacral spine 11/24/2021, outside CT 03/21/2022, outside MRI lumbar spine December 2018, 2023 and 05/28/2022. RESULT: Counting reference: Lumbosacral junction. For the purposes of this report, L4-5 is considered the level of the iliac crest and assume there are 5 lumbar-type vertebrae. Anatomic variant: None. 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 Alignment: Similar alignment. Slight anterolisthesis of L4 on L5 which is fused in position. One-2 mm retrolisthesis of L5 over S1 which is also fused in position. Sagittal alignment is otherwise unremarkable. In the coronal plane, there is very subtle curvature convex left. Bone marrow /fracture: Postoperative changes as noted. No evidence for fracture. There is vacuum change at both SI joints. Lucency is again noted surrounding the S1 fixation screws. This is similar to the prior study. Subtle lucency is present surrounding the left iliac wing screw (4:187; 6:167; 5:83 and adjacent contiguous images). This raises question of subtle motion surrounding this particular element. Paraspinal soft tissues: Alteration of posterior soft tissue planes related to prior instrumentation. Small electronic device is present in the subcutaneous soft tissues on the left dorsal to approximately L3 Lower thoracic spine: The visualized lower thoracic bony canal and foramina are patent. L1-L2: Mild disc bulging and facet degenerative change. Canal and foramina remain patent. L2-L3: Minimal disc bulging. Mild facet degenerative change. Canal and foramina remain patent. L3-L4: Minimal disc bulging. Moderate right and ylyi-ng-ukejbeye left facet degenerative change. Canal remains grossly patent. Minimal foraminal narrowing. L4-L5: Fused level. Posterior laminectomy. Canal remains patent within the resolving capacity of this exam. Foramina are minimally narrowed. L5-S1: Fused level. Posterior laminectomy. Canal remains patent within the resolving capacity of this exam. Moderate right foraminal narrowing. Left appears grossly patent. Sacrum and iliac wings: Laterally directed fixation as noted extending into the iliac wings from the S2 level. Similar lucency surrounding the S1 fixation. IMPRESSION: Grossly stable appearing spinal alignment. Similar lucency surrounding the S1 fixation, and subtle lucency surrounding the laterally directed left-sided iliac wing/S2 screw. Findings may indicate some continued motion through this region. Remainder of the fixation appears stable. Degenerative findings as noted, which are similar in appearance to the previous exam. Anatomic Lumbar Variant: None. L4-5 is considered the level of the iliac crest and assume there are 5 lumbar-type vertebrae. Transcribe Date/Time: Aug 09 2024 12:07P Dictated by: LIZY MAZARIEGOS MD This examination was interpreted and the report reviewed and electronically signed by: LIZY MAZARIEGOS MD on Aug 09 2024 12:21PM EST Thank you for allowing us to participate in the care of your patient. Should there be any questions regarding this interpretation, please call [phone]. If you are unable to reach us at the number above, please feel free to contact [facility] eRadiology at [phone]. [id number] Normal [facility] CT Lumbar spine WO contrasto n 08-09-2024 IMPRESSION: Grossly stable appearing spinal alignment. Similar lucency surrounding the S1 fixation, and subtle lucency surrounding the laterally directed left-sided iliac wing/S2 screw. Findings may indicate some continued motion through this region. Remainder of the fixation appears stable. Degenerative findings as noted, which are similar in appearance to the previous exam. Anatomic Lumbar Variant: None. L4-5 is considered the level of the iliac crest and assume there are 5 lumbar-type vertebrae. Transcribe Date/Time: Aug 09 2024 12:07P Dictated by: LIZY MAZARIEGOS MD This examination was interpreted and the report reviewed and electronically signed by: LIZY MAZARIEGOS MD on Aug 09 2024 12:21PM EST Thank you for allowing us to participate in the care of your patient. Should there be any questions regarding this interpretation, please call [phone]. If you are unable to reach us at the number above, please feel free to contact [facility]iology at [phone]. DIVISION OF RADIOLOGY * * *Final Report* * * DATE OF EXAM: Aug 09 2024 12:05PM [facility] 0508 - CT LUMBAR SPINE WO IVCON / PROCEDURE REASON: Radiculopathy of lumbar region * * * * Physician Interpretation * * * * RESULT: EXAMINATION: CT LUMBAR SPINE WO IVCON CLINICAL HISTORY: Radiculopathy of lumbar region. TECHNIQUE: Spiral, high resolution axial unenhanced images were obtained from the thoracolumbar junction to the sacrum with sagittal and coronal planar reconstructions. MQ: CTLSPWO_3 CT Radiation dose: Integrated Dose-Length Product (DLP) for this visit = 975 mGy*cm. CT Dose Reduction Employed: Automated exposure control (AEC) COMPARISON: Prior CT of the lumbosacral spine 11/24/2021, outside CT 03/21/2022, outside MRI lumbar spine December 2018, 2023 and 05/28/2022. RESULT: Counting reference: Lumbosacral junction. For the purposes of this report, L4-5 is considered the level of the iliac crest and assume there are 5 lumbar-type vertebrae. Anatomic variant: None. 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 Alignment: Similar alignment. Slight anterolisthesis of L4 on L5 which is fused in position. One-2 mm retrolisthesis of L5 over S1 which is also fused in position. Sagittal alignment is otherwise unremarkable. In the coronal plane, there is very subtle curvature convex left. Bone marrow /fracture: Postoperative changes as noted. No evidence for fracture. There is vacuum change at both SI joints. Lucency is again noted surrounding the S1 fixation screws. This is similar to the prior study. Subtle lucency is present surrounding the left iliac wing screw (4:187; 6:167; 5:83 and adjacent contiguous images). This raises question of subtle motion surrounding this particular element. Paraspinal soft tissues: Alteration of posterior soft tissue planes related to prior instrumentation. Small electronic device is present in the subcutaneous soft tissues on the left dorsal to approximately L3 Lower thoracic spine: The visualized lower thoracic bony canal and foramina are patent. L1-L2: Mild disc bulging and facet degenerative change. Canal and foramina remain patent. L2-L3: Minimal disc bulging. Mild facet degenerative change. Canal and foramina remain patent. L3-L4: Minimal disc bulging. Moderate right and yagi-ew-bzvgvots left facet degenerative change. Canal remains grossly patent. Minimal foraminal narrowing. L4-L5: Fused level. Posterior laminectomy. Canal remains patent within the resolving capacity of this exam. Foramina are minimally narrowed. L5-S1: Fused level. Posterior laminectomy. Canal remains patent within the resolving capacity of this exam. Moderate right foraminal narrowing. Left appears grossly patent. Sacrum and iliac wings: Laterally directed fixation as noted extending into the iliac wings from the S2 level. Similar lucency surrounding the S1 fixation. DIVISION OF RADIOLOGY Provider, [facility] - 08/09/2024 * * *Final Report* * * DATE OF EXAM: Aug 09 2024 12:05PM [facility] 0508 - CT LUMBAR SPINE WO IVCON / PROCEDURE REASON: Radiculopathy of lumbar region * * * * Physician Interpretation * * * * RESULT: EXAMINATION: CT LUMBAR SPINE WO IVCON CLINICAL HISTORY: Radiculopathy of lumbar region. TECHNIQUE: Spiral, high resolution axial unenhanced images were obtained from the thoracolumbar junction to the sacrum with sagittal and coronal planar reconstructions. MQ: CTLSPWO_3 CT Radiation dose: Integrated Dose-Length Product (DLP) for this visit = 975 mGy*cm. CT Dose Reduction Employed: Automated exposure control (AEC) COMPARISON: Prior CT of the lumbosacral spine 11/24/2021, outside CT 03/21/2022, outside MRI lumbar spine December 2018, 2023 and 05/28/2022. RESULT: Counting reference: Lumbosacral junction. For the purposes of this report, L4-5 is considered the level of the iliac crest and assume there are 5 lumbar-type vertebrae. Anatomic variant: None. 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 Alignment: Similar alignment. Slight anterolisthesis of L4 on L5 which is fused in position. One-2 mm retrolisthesis of L5 over S1 which is also fused in position. Sagittal alignment is otherwise unremarkable. In the coronal plane, there is very subtle curvature convex left. Bone marrow /fracture: Postoperative changes as noted. No evidence for fracture. There is vacuum change at both SI joints. Lucency is again noted surrounding the S1 fixation screws. This is similar to the prior study. Subtle lucency is present surrounding the left iliac wing screw (4:187; 6:167; 5:83 and adjacent contiguous images). This raises question of subtle motion surrounding this particular element. Paraspinal soft tissues: Alteration of posterior soft tissue planes related to prior instrumentation. Small electronic device is present in the subcutaneous soft tissues on the left dorsal to approximately L3 Lower thoracic spine: The visualized lower thoracic bony canal and foramina are patent. L1-L2: Mild disc bulging and facet degenerative change. Canal and foramina remain patent. L2-L3: Minimal disc bulging. Mild facet degenerative change. Canal and foramina remain patent. L3-L4: Minimal disc bulging. Moderate right and jjgl-si-rbwpqphf left facet degenerative change. Canal remains grossly patent. Minimal foraminal narrowing. L4-L5: Fused level. Posterior laminectomy. Canal remains patent within the resolving capacity of this exam. Foramina are minimally narrowed. L5-S1: Fused level. Posterior laminectomy. Canal remains patent within the resolving capacity of this exam. Moderate right foraminal narrowing. Left appears grossly patent. Sacrum and iliac wings: Laterally directed fixation as noted extending into the iliac wings from the S2 level. Similar lucency surrounding the S1 fixation. IMPRESSION IMPRESSION: Grossly stable appearing spinal alignment. Similar lucency surrounding the S1 fixation, and subtle lucency surrounding the laterally directed left-sided iliac wing/S2 screw. Findings may indicate some continued motion through this region. Remainder of the fixation appears stable. Degenerative findings as noted, which are similar in appearance to the previous exam. Anatomic Lumbar Variant: None. L4-5 is considered the level of the iliac crest and assume there are 5 lumbar-type vertebrae. Transcribe Date/Time: Aug 09 2024 12:07P Dictated by: LIZY MAZARIEGOS MD This examination was interpreted and the report reviewed and electronically signed by: LIZY MAZARIEGOS MD on Aug 09 2024 12:21PM EST Thank you for allowing us to participate in the care of your patient. Should there be any questions regarding this interpretation, please call [phone]. If you are unable to reach us at the number above, please feel free to contact [facility]iology at [phone]. [facility] Radiology Study observation (narrative) [facility] CT Lumbar spine WO contrastO rdered By: [facility] Provider on 08-09-2024 [facility] CNPNon 07-27-2024 CNPN Telephone (SPSDMN) ----- MARY JIMENEZ ([id number]) 1960 Date Time Provider Department 07/27/24 GUILLAUME BHANDARI [facility] During your visit today, we recorded the following information about you: Li Rosenbaum LPN 07/27/2024 11:47 AM Signed [facility] message sent to patient with procedure instructions. Allergies As of Date: 07/27/2024 Noted Allergy Reaction PENICILLINS 06/07/2014 10 - Anaphylaxis LATEX 09/04/2016 2 - Rash Date Reviewed: 07/20/2024 Reviewed by: Rhonda Hay MA - Fully Assessed Reason for Visit: Preperations for Procedure [Other] Cmt: Lemonwisehart Prescriptions as of 07/27/2024 - methylPREDNISolone (MEDROL DOSE-PACK) 4 mg Dose-Pack As Instructed per package - Pregabalin (LYRICA) 200 mg capsule Take 1 capsule by mouth three times daily for 90 days. - QUEtiapine (SEROQUEL) 25 mg tablet TAKE [...] twice daily. Problem List As Of Date 07/27/2024 Noted Resolved Headache(784.0) [R51] 07/18/2014 08/18/2021 Adjustment [...] [S32.009K] 12/31/2021 Obesity, Class II, BMI 35-39.9 [E66.812] 01/01/2022 Anemia [D64.9] 01/04/2022 Lumbar radiculopathy [M54.16] 05/13/2022 Encounter Status:Closed by LI ROSENBAUM on 07/27/24 [facility] CNOVon 07-20-2024 CNOV Office Visit (NSFRVW ) ----- MARY JIMENEZ ([id number]) 1960 M Date Time Provider Department 07/20/24 1:00 PM LOYDA STEELE NSFRVW During your visit today, we recorded the following information about you: Pulse Blood pressure Weight Height 93/minute 151/91 122.2 kg 1.765 m Loyda Steele MD 07/20/2024 1:24 PM Signed SPINE SURGERY ESTABLISHED VISIT This is an in-person visit. DATE OF SERVICE: 07/20/2024 DATE OF LAST VISIT: 04/21/2022 SURGERY DATE: 12/31/21 Revision L4-pelvis instrumented fusion SUBJECTIVE: HPI:Mary Jimenez is a 64 year old male presenting with spouse. Today, the patient reports pain in his lower back, radiating down the back of his left leg and into his foot, causing his foot to feel numb. He has also expressed minor pain in his neck, stating that his left arm has frequently gone numb. He was previously doing physical therapy and going to the gym. Patient is still taking Lyrica as prescribed. Approximate date and time of pain or symptom onset: symptoms began around December 2023 MEDICATIONS: QUEtiapine (SEROQUEL) 25 mg tablet TAKE ONE TABLET BY MOUTH EVERY NIGHT AT BEDTIME clopidogrel (PLAVIX) 75 mg tablet Take 1 [...] Take 30 mg by mouth three times a day. Takes 30 mg three times daily per [...] 2 Sprays in each nostril twice daily. methylPREDNISolone (MEDROL DOSE-PACK) 4 mg Dose-Pack As Instructed per package Pregabalin (LYRICA) 200 mg capsule Take 1 capsule by mouth three times daily for 90 days. lactobacillus combination no.4 3 billion cell cap Take 1 capsule by mouth once daily. Pain Radiation: Low back down left leg and foot Aggravating Factors: Standing, Walking Alleviating Factors: Exercising/activity AMBULATORY STATUS: Impaired Community Distances ANTIPLATELET OR ANTICOAGULATION STATUS: Yes, Plavix 75mg PREVIOUS CONSERVATIVE TREATMENTS: Lyrica, Medrol, Cymbalta REVIEW OF SYSTEMS: GENERAL: No weight loss or malaise MUSCULOSKELETAL: SEE HPI NEURO: No history of syncope, paralysis, seizures or tremors Patient Entered Questionnaires 04/09/2022 04/20/2022 07/02/2022 Spine Questions Pain Location: Lower back Lower back Lower back Pain Duration: More than 5 years Pain over last 6 months: Every day or nearly every day in the past 6 months Symptoms from neck/cervical spine: No No No Employment Status: Disabled for reasons other than back pain Disabled for reasons other than back pain 10/02/2021 Neck Questionnaires Benzel Modified SCARLETT Score Incomplete PROMIS Score Percentiles 12/04/2021 01/14/2022 04/09/2022 Physical Health Physical Function Percentile 73 0 0 Sleep Percentile 50 2 0 Fatigue Percentile 98 79 0 Pain Interference Percentile 0 0 0 12/04/2021 01/14/2022 04/09/2022 PROMIS SOCIAL ROLE SCORE Social Role Satisfaction Percentile 1 1 2 02/25/2022 03/30/2022 07/02/2022 PROMIS Global Health Scale Physical Health Percentile 7 1 1 Mental Health Percentile 3 3 2 Percentiles provide an indication of how the patient's score ranks in relation to the general population. Higher percentile rankings indicate better function/quality of life. 50th percentile (more content not included)... [facility] 07-11-2024 [facility] Telephone (NSFRVW) ----- MARY JIMENEZ ([id number]) 1960 M Date Time Provider Department 07/11/[address] [facility] During your visit today, we recorded the following information about you: Naren Bear 07/11/2024 9:53 AM Signed Patient called, he wanted to make sure all his images were in the system, I was able to see MRI completed on 06/15/24. Report and images are in system. Patient just wanted to make sure he was good to go for his appointment. Patient # [phone] Christine Gutierrez PA-C 07/11/2024 9:58 AM Signed Imaging viewable, should be okay for appointment. Allergies As of Date: 07/11/2024 Noted Allergy Reaction PENICILLINS 06/07/2014 10 - Anaphylaxis LATEX 09/04/2016 2 - Rash Date Reviewed: 05/13/2022 Reviewed by: Roro Ryan RN - Fully Assessed Reason for Visit: Patient Question [2998] Prescriptions as of 07/11/2024 - methylPREDNISolone (MEDROL DOSE-PACK) 4 mg Dose-Pack As Instructed per package - Pregabalin (LYRICA) 200 mg capsule Take 1 capsule by mouth three times daily for 90 days. - QUEtiapine (SEROQUEL) 25 mg tablet TAKE [...] twice daily. Problem List As Of Date 07/11/2024 Noted Resolved Headache(784.0) [R51] 07/18/2014 08/18/2021 Adjustment [...] [S32.009K] 12/31/2021 Obesity, Class II, BMI 35-39.9 [E66.812] 01/01/2022 Anemia [D64.9] 01/04/2022 Lumbar radiculopathy [M54.16] 05/13/2022 Encounter Status:Closed by CHRISTINE GUTIERREZ on 07/11/24 [facility] 06-27-2024 [facility] Telephone ([facility] ----- MARY JIMENEZ ([id number]) 1960 M Date Time Provider Department 06/27/24 LOYDA STEELE [facility] During your visit today, we recorded the following information about you: Yolanda Conde 06/27/2024 3:21 PM Signed MRI report scanned to EPic Allergies As of Date: 06/27/2024 Noted Allergy Reaction PENICILLINS 06/07/2014 10 - Anaphylaxis LATEX 09/04/2016 2 - Rash Date Reviewed: 05/13/2022 Reviewed by: Roro Ryan RN - Fully Assessed Reason for Visit: Results [95] Prescriptions as of 07/05/2024 - methylPREDNISolone (MEDROL DOSE-PACK) 4 mg Dose-Pack As Instructed per package - Pregabalin (LYRICA) 200 mg capsule Take 1 capsule by mouth three times daily for 90 days. - QUEtiapine (SEROQUEL) 25 mg tablet TAKE [...] twice daily. Problem List As Of Date 06/27/2024 Noted Resolved Headache(784.0) [R51] 07/18/2014 08/18/2021 Adjustment [...] [S32.009K] 12/31/2021 Obesity, Class II, BMI 35-39.9 [E66.812] 01/01/2022 Anemia [D64.9] 01/04/2022 Lumbar radiculopathy [M54.16] 05/13/2022 Encounter Status:Closed by GRETA NUNEZ on 07/05/24 [facility] MRI Spine Cervical w/o Contr joe 06-17-2024 MRI Spine Cervical w/o Contrast Exam Date/Time: 06/15/2024 17:26 EST Reason for [...] prior study from 05/28/2022. Report Ordering Provider: Se Rodriges FINAL REPORT Dictated: 06/17/2024 1:21 pm Jon Gannon MD. Signed (Electronic Signature): 06/17/2024 1:21 pm Signed by: Jon Gannon MD Transcribed by: MARGAUX Technologist: TYE Technical Comments None Normal [facility] 05-06-2024 [facility] Telephone ([facility]AD[facility]) ----- MARY JIMENEZ ([id number]) 1960 M Date Time Provider Department 05/06/24 LOYDA STEELE [facility] During your visit today, we recorded the following information about you: Yolanda Conde 05/06/2024 1:40 PM Signed [facility] MRI Spine lumbar report scanned to Epic Allergies As of Date: 05/06/2024 Noted Allergy Reaction PENICILLINS 06/07/2014 10 - Anaphylaxis LATEX 09/04/2016 2 - Rash Date Reviewed: 05/13/2022 Reviewed by: Roro Ryan, TONY - Fully Assessed Reason for Visit: Results [95] Prescriptions as of 11/30/2024 - methylPREDNISolone (MEDROL DOSE-PACK) 4 mg Dose-Pack As Instructed per package - Pregabalin (LYRICA) 200 mg capsule Take 1 capsule by mouth three times daily for 90 days. - QUEtiapine (SEROQUEL) 25 mg tablet TAKE [...] twice daily. Problem List As Of Date 05/06/2024 Noted Resolved Headache(784.0) [R51] 07/18/2014 08/18/2021 Adjustment [...] [S32.009K] 12/31/2021 Obesity, Class II, BMI 35-39.9 [E66.812] 01/01/2022 Anemia [D64.9] 01/04/2022 Lumbar radiculopathy [M54.16] 05/13/2022 Encounter Status:Closed by YOLANDA CONDE on 11/30/24 [facility]20[facility] ----- MARY JIMENEZ ([id number]) 1960 M Date Time Provider Department 05/05/24 LOYDA STEELE [facility] During your visit today, we recorded the following information about you: Naren Bear 05/05/2024 12:22 PM Signed Patient call to ask for office fax number to send MRI report. Allergies As of Date: 05/05/2024 Noted Allergy Reaction PENICILLINS 06/07/2014 10 - Anaphylaxis LATEX 09/04/2016 2 - Rash Date Reviewed: 05/13/2022 Reviewed by: Roro Ryan, TONY - Fully Assessed Reason for Visit: Patient Question [5543] Prescriptions as of 10/12/2024 - methylPREDNISolone (MEDROL DOSE-PACK) 4 mg Dose-Pack As Instructed per package - Pregabalin (LYRICA) 200 mg capsule Take 1 capsule by mouth three times daily for 90 days. - QUEtiapine (SEROQUEL) 25 mg tablet TAKE [...] twice daily. Problem List As Of Date 05/05/2024 Noted Resolved Headache(784.0) [R51] 07/18/2014 08/18/2021 Adjustment [...] [S32.009K] 12/31/2021 Obesity, Class II, BMI 35-39.9 [E66.812] 01/01/2022 Anemia [D64.9] 01/04/2022 Lumbar radiculopathy [M54.16] 05/13/2022 Encounter Status:Closed by NAREN BEAR on 10/12/24 Normal [facility] A1C with Estimated Average G philipaaron 05-02-2024 Glucose [Mass/Vol] 108 mg/dL Normal [facility] Comment on above: Result Comment: PERF ORMED BY: [address] [address] PATHOLOGIST INCIDENT MANAGER MARJORIE WAYNE M.D. Performed By: #### C BC, BMP, A1C WTH eA, HEPATIC, LIPID #### [facility] [address] [place] [address] [place] #### IGG #### [facility] , HbA1c (Bld) [Mass fraction] 5.4 % Normal 4.3-5.6 The Counts Include [address] Beds At [facility] Comment on above: Result Comment: Incr eased risk for diabetes: 5.7 - 6.4 diabetes: >6.4 glycemic control for adults with diabetes: <7.0 Performed By: #### C BC, BMP, A1C WTH eA, HEPATIC, LIPID #### [facility] [address] [place] [address] [place] #### IGG #### [facility] , Alanine aminotransferase [En zymatic activity/volume] in Serum or PlasmaOrdered By: Jose Valdovinos on 05-02-2024 ALT [Catalytic activity/Vol] 23 U/L Normal [facility] Comment on above: Performed By: #### C BC, BMP, A1C WTH eA, HEPATIC, LIPID #### [facility] [address] [place] [address] [place] #### IGG #### [facility] , ALT [Catalytic activity/Vol] Alanine aminotransferase [Enzymatic activity/volume] in Serum or Plasma [facility] Albumin [Mass/volume] in Ser um or Plasma by Bromocresol green (BCG) dye binding methoOrdered By: Jose Valdovinos on 05-02-2024 Albumin BCG dye [Mass/Vol] 4.3 g/dL 3.5-5.7 [facility] Albumin BCG dye [Mass/Vol] Albumin [Mass/volume] in Serum or Plasma by Bromocresol green (BCG) dye binding metho 3.5-5.7 [facility] Alkaline phosphatase [Enzyma tic activity/volume] in Serum or PlasmaOrdered By: Jose Valdovinos on 05-02-2024 ALP [Catalytic activity/Vol] 54 U/L Normal 34-104 [facility] Comment on above: Performed By: #### C BC, BMP, A1C WTH eA, HEPATIC, LIPID #### [facility] [address] [place] [address] [place] #### IGG #### [facility] , ALP [Catalytic activity/Vol] Alkaline phosphatase [Enzymatic activity/volume] in Serum or Plasma 34-104 [facility] Aspartate aminotransferase [ Enzymatic activity/volume] in Serum or PlasmaOrdered By: Jose Valdovinos on 05-02-2024 AST [Catalytic activity/Vol] 19 U/L Normal 39 [facility] Comment on above: Performed By: #### C BC, BMP, A1C WTH eA, HEPATIC, LIPID #### [facility] [address] [place] [address] [place] #### IGG #### [facility] , AST [Catalytic activity/Vol] Aspartate aminotransferase [Enzymatic activity/volume] in Serum or Plasma [facility] Automated basophil %Ordered By: Jose Valdovinos on 05-02-2024 Basophils/100 WBC (Bld) 1.3 % Normal . [facility] Comment on above: Performed By: #### C BC, BMP, A1C WTH eA, HEPATIC, LIPID #### [facility] [address] [place] [address] [place] #### IGG #### [facility] , Automated basophil countOrde red By: Jose Valdovinos on 05-02-2024 Basophils (Bld) [#/Vol] 0.1 10*3/uL Normal 0.0-0.2 [facility] Comment on above: Result Comment: PERF ORMED BY: [place] [address] PATHOLOGIST INCIDENT MANAGER MARJORIE WAYNE M.D. Performed By: #### C BC, BMP, A1C WTH eA, HEPATIC, LIPID #### [place] [address] [place] #### IGG #### [facility] , Automated blood monocyte cou ntOrdered By: Jose Valdovinos on 05-02-2024 Monocytes (Bld) [#/Vol] 0.5 10*3/uL Normal 0.0-0.8 [facility] Comment on above: Performed By: #### C BC, BMP, A1C WTH eA, HEPATIC, LIPID #### [facility] [address] [place] [address] [place] #### IGG #### [facility] , Automated eosinophil %Ordere d By: Jose Valdovinos on 05-02-2024 Eosinophils/100 WBC (Bld) 3.5 % Normal . [facility] Comment on above: Performed By: #### C BC, BMP, A1C WTH eA, HEPATIC, LIPID #### [facility] [address] [place] [address] [place] #### IGG #### [facility] , Automated eosinophil countOr dered By: Jose Valdovinos on 05-02-2024 Eosinophils (Bld) [#/Vol] 0.2 10*3/uL Normal 0.0-0.45 [facility] Comment on above: Performed By: #### C BC, BMP, A1C WTH eA, HEPATIC, LIPID #### [facility] [address] [place] [address] [place] #### IGG #### [facility] , Automated monocyte %Ordered By: Jose Valdovinos on 05-02-2024 Monocytes/100 WBC (Bld) 10.1 % Normal . [facility] Comment on above: Performed By: #### C BC, BMP, A1C WTH eA, HEPATIC, LIPID #### [place] [address] [place] #### IGG #### [facility] , Automated neutrophil %Ordere d By: Jose Whyter on 05-02-2024 Neutrophils/100 WBC (Bld) 66.5 % Normal . [facility] Comment on above: Performed By: #### C BC, BMP, A1C WTH eA, HEPATIC, LIPID #### [facility] [address] [place] [address] [place] #### IGG #### [facility] , Basic Metabolic Panelon GFR/1.73 sq M.predicted MDRD (S/P/Bld) [Vol rate/Area] mL/min/{1.73_m2} Normal The Counts Include [address] Beds At [facility] Comment on above: Performed By: #### C BC, BMP, A1C WTH eA, HEPATIC, LIPID #### [facility] [address] [place] [address] [place] #### IGG #### [facility] , Basophils Auto (Bld) [#/Vol] Ordered By: Jose Valdovinos on 05-02-2024 Basophils (Bld) [#/Vol] Automated basophil count 0.0-0.2 [facility] Basophils/100 WBC Auto (Bld) Ordered By: Jose Valdovinos on 05-02-2024 Basophils/100 WBC (Bld) Automated basophil % . [facility] Bilirubin.direct [Mass/volum e] in Serum or PlasmaOrdered By: Jose Valdovinos on 05-02-2024 Bilirubin.direct [Mass/Vol] 0.10 mg/dL 0.03-0.18 [facility] Bilirubin.direct [Mass/Vol] Bilirubin.direct [Mass/volume] in Serum or Plasma 0.03-0.18 [facility] Bilirubin.total [Mass/volume ] in Serum or PlasmaOrdered By: Jose Valdovinos on 05-02-2024 Bilirubin [Mass/Vol] 0.6 mg/dL Normal 0.3-1.0 [facility] Comment on above: Performed By: #### C BC, BMP, A1C WTH eA, HEPATIC, LIPID #### [facility] [address] [place] [address] [place] #### IGG #### [facility] , Bilirubin [Mass/Vol] Bilirubin.total [Mass/volume] in Serum or Plasma 0.3-1.0 [facility] Blood estimated average gluc ose determination by estimation from glycated hemoglobinOrdered By: Jose Valdovinos on 05-02-2024 Average glucose Estimated from glycated hemoglobin (Bld) [Mass/Vol] Glucose mean value [Mass/volume] in Blood Estimated from glycated hemoglobin [facility] Calcium [Mass/volume] in Ser um or PlasmaOrdered By: Jose Valdovinos on 05-02-2024 Calcium [Mass/Vol] 8.8 mg/dL Normal 8.6-10.3 [facility] Comment on above: Performed By: #### C BC, BMP, A1C WTH eA, HEPATIC, LIPID #### [facility] [address] [place] [address] [place] #### IGG #### [facility] , Calcium [Mass/Vol] Calcium [Mass/volume ] in Serum or Plasma 8.6-10.3 [facility] Carbon dioxide, total [Moles /volume] in Serum or PlasmaOrdered By: Jose Valdovinos on 05-02-2024 CO2 [Moles/Vol] 29.1 mmol/L Normal 21.0-31.0 [facility] Comment on above: Performed By: #### C BC, BMP, A1C WTH eA, HEPATIC, LIPID #### [facility] [address] [place] [address] [place] #### IGG #### [facility] , CO2 [Moles/Vol] Carbon dioxide, tota l [Moles/volume] in Serum or Plasma 21.0-31.0 [facility] Chloride [Moles/volume] in S irma or PlasmaOrdered By: Jose Valdovinos on 05-02-2024 Chloride [Moles/Vol] 103 mmol/L Normal 98-107 [facility] Comment on above: Performed By: #### C BC, BMP, A1C WTH eA, HEPATIC, LIPID #### [facility] [address] [place] [address] [place] #### IGG #### [facility] , Chloride [Moles/Vol] Chloride [Moles/vol ume] in Serum or Plasma 98-107 [facility] Cholesterol [Mass/volume] in Serum or PlasmaOrdered By: Jose Valdovinos on 05-02-2024 Cholesterol [Mass/Vol] 140 mg/dL Normal 140-200 [facility] Comment on above: Chol less than 200 m g/dl low riskChol 201-239 mg/dl borderline riskChol 240 mg/dl and greater high risk Result Comment: Chol less than 200 mg/dl low risk Chol 201-239 mg/dl borderline risk Chol 240 mg/dl and greater high risk Performed By: #### C BC, BMP, A1C WTH eA, HEPATIC, LIPID #### [facility] [address] #### IGG #### [facility] , Cholesterol [Mass/Vol] Cholesterol [Mass /volume] in Serum or Plasma 140-200 [facility] Comment on above: Chol less than 200 m g/dl low riskChol 201-239 mg/dl borderline riskChol 240 mg/dl and greater high risk Cholesterol in HDL [Mass/vol ume] in Serum or PlasmaOrdered By: Jose Valdovinos on 05-02-2024 Cholesterol in HDL [Mass/Vol] Serum or plasma high density lipoprotein (HDL) cholesterol measurement 23-92 [facility] Comment on above: HDL CHOL ATP-III CLA SSIFICATION Cardiovascular RiskHDL > or equal to 60 mg/dL LOWHDL < 40 mg/dL HIGH Cholesterol in LDL Calc [Mas s/Vol]Ordered By: Jose Valdovinos on 05-02-2024 Cholesterol in LDL [Mass/Vol] 61 mg/dL 0-100 [facility] Comment on above: LDL ATP III CLASSIFI CATIONLDL less than 100 mg/dL OptimalLDL 100-129 mg/dL Near or above optimalLDL 130-159 mg/dL Borderline highLDL 160-189 mg/dL HighLDL greater than 189 mg/dL Very high Cholesterol in LDL [Mass/Vol] Cholesterol in LDL [Mass/volume] in Serum or Plasma by calculation 0-100 [facility] Comment on above: LDL ATP III CLASSIFI CATIONLDL less than 100 mg/dL OptimalLDL 100-129 mg/dL Near or above optimalLDL 130-159 mg/dL Borderline highLDL 160-189 mg/dL HighLDL greater than 189 mg/dL Very high Cholesterol in VLDL Calc [Ma ss/Vol]Ordered By: Jose Valdovinos on 05-02-2024 Cholesterol in VLDL [Mass/Vol] 40 mg/dL [facility] Cholesterol in VLDL [Mass/Vol] Cholesterol in VLDL [Mass/volume] in Serum or Plasma by calculation [facility] Complete Blood Count Auto Di ffon 05-02-2024 Mean Corpuscular HGB Conc 34.5 g/dL Normal 32.5-35.6 The Counts Include 234 Beds At [facility] Comment on above: Performed By: #### C BC, BMP, A1C WTH eA, HEPATIC, LIPID #### [facility] [address] [place] [address] [place] #### IGG #### [facility] , NRBC% 0.0 /100{WBC} Normal 0-0.5 [facility] Comment on above: Performed By: #### C BC, BMP, A1C WTH eA, HEPATIC, LIPID #### [facility] [address] [place] [address] #### IGG #### [facility] , Creatinine [Mass/volume] in Serum or PlasmaOrdered By: Jose Valdovinos on 05-02-2024 Creatinine [Mass/Vol] 1.18 mg/dL Normal 0.70-1.[address] [facility] Comment on above: Performed By: #### C BC, BMP, A1C WTH eA, HEPATIC, LIPID #### [facility] [address] [place] [address] [place] #### IGG #### [facility] , Creatinine [Mass/Vol] Creatinine [Mass/v olume] in Serum or Plasma 0.70-1.30 [facility] Eosinophils Auto (Bld) [#/Vo l]Ordered By: Jose Valdovinos on 05-02-2024 Eosinophils (Bld) [#/Vol] Automated eosinophil count 0.0-0.45 [facility] Eosinophils/100 WBC Auto (Bl d)Ordered By: Jose Valdovinos on 05-02-2024 Eosinophils/100 WBC (Bld) Automated eosinophil % . [facility] Erythrocyte distribution wid th Auto (RBC) [Ratio]Ordered By: Jose Valdovinos on 05-02-2024 Erythrocyte distribution width (RBC) [Ratio] Erythrocyte distribution width [Ratio] by Automated count 12.0-14.8 [facility] Erythrocyte distribution wid th [Ratio] by Automated countOrdered By: Jose Valdovinos on 05-02-2024 Erythrocyte distribution width (RBC) [Ratio] 13.3 % Normal 12.0-14.8 [facility] Comment on above: Performed By: #### C BC, BMP, A1C WTH eA, HEPATIC, LIPID #### [facility] [address] [place] [address] [place] #### IGG #### [facility] , Erythrocytes [#/volume] in B lood by Automated countOrdered By: Jose Valdovinos on 05-02-2024 RBC (Bld) [#/Vol] 4.73 10*6/uL Normal 3.90-5.60 [facility] Comment on above: Performed By: #### C BC, BMP, A1C WTH eA, HEPATIC, LIPID #### [facility] [address] [place] [address] [place] #### IGG #### [facility] , Globulin Calc (S) [Mass/Vol] Ordered By: Jose Valdovinos on 05-02-2024 Globulin (S) [Mass/Vol] Serum globulin measurement by calculation (mass/volume) [facility] Glucose [Mass/volume] in Ser um or PlasmaOrdered By: Jose Valdovinos on 05-02-2024 Glucose [Mass/Vol] 86 mg/dL Normal 70-100 [facility] Comment on above: ADA recommended refe rence rangeRandom Glucose Reference Range is dependent on time and content of last meal. Glucose of more than 200 mg/dL in a nonstressed, ambulatory subject supports the diagnosis of Diabetes Mellitus. Result Comment: [place] om Glucose Reference Range is dependent on time and content of last meal. Glucose of more than 200 mg/dL in a nonstressed, ambulatory subject supports the diagnosis of Diabetes Mellitus. ADA recommended reference range Performed By: #### C BC, BMP, A1C WTH eA, HEPATIC, LIPID #### [facility] [address] [place] [address] [place] #### IGG #### [facility] , Glucose [Mass/Vol] Glucose [Mass/volume ] in Serum or Plasma 70-100 [facility] Comment on above: ADA recommended refe rence rangeRandom Glucose Reference Range is dependent on time and content of last meal. Glucose of more than 200 mg/dL in a nonstressed, ambulatory subject supports the diagnosis of Diabetes Mellitus. Hematocrit Auto (Bld) [Volum e fraction]Ordered By: Jose Valdovinos on 05-02-2024 Hematocrit (Bld) [Volume fraction] Hematocrit [Volume Fraction] of Blood by Automated count 38.8-50.0 [facility] Hematocrit [Volume Fraction] of Blood by Automated countOrdered By: Jose Valdovinos on 05-02-2024 Hematocrit (Bld) [Volume fraction] 45.7 % Normal 38.8-50.0 [facility] Comment on above: Performed By: #### C BC, BMP, A1C WTH eA, HEPATIC, LIPID #### [facility] [address] [place] [address] #### IGG #### [facility] , Hemoglobin A1c/Hemoglobin.to zahraa in BloodOrdered By: Jose Valdovinos on 05-02-2024 HbA1c (Bld) [Mass fraction] Hemoglobin A1c percentage 4.3-5.6 [facility] Comment on above: Increased risk for d iabetes: 5.7 - 6.4diabetes: >6.4glycemic control for adults with diabetes: <7.0 Hemoglobin [Mass/volume] in BloodOrdered By: Jose Valdovinos on 05-02-2024 Hemoglobin (Bld) [Mass/Vol] 15.8 g/dL Normal 13.0-17.0 [facility] Comment on above: Performed By: #### C BC, BMP, A1C WTH eA, HEPATIC, LIPID #### [facility] [address] [place] [address] #### IGG #### [facility] , Hemoglobin (Bld) [Mass/Vol] Hemoglobin [Mass/volume] in Blood 13.0-17.0 [facility] Hepatic Panelon 05-02-2024 Albumin [Mass/Vol] 4.3 g/dL Normal 3.5-5.7 [facility] Comment on above: Performed By: #### C BC, BMP, A1C WTH eA, HEPATIC, LIPID #### [address] #### IGG #### [facility] , Bilirubin,Indirect 0.5 mg/dL Normal [facility] Comment on above: Performed By: #### C BC, BMP, A1C WTH eA, HEPATIC, LIPID #### [place] [address] [place] #### IGG #### [facility] , Bilirubin.indirect [Mass/Vol] 0.10 mg/dL Normal 0.03-0.18 The Counts Include [address] Beds At [facility] Comment on above: Performed By: #### C BC, BMP, A1C WTH eA, HEPATIC, LIPID #### [address] #### IGG #### [facility] , Immunoglobulin John 4 Immunoglobulin G 768 mg/dL Normal 603-1613 [facility] Comment on above: Result Comment: Perf ormed at: - [facility] [address] [id number] Medical Secretary: Humberto Farrar PhD, Phone: [phone] PERFORMED BY: [place] [address] PATHOLOGIST INCIDENT MANAGER MARJORIE WAYNE M.D. Performed By: #### C BC, BMP, A1C WTH eA, HEPATIC, LIPID #### [place] [address] [place] #### IGG #### [facility] , Leukocytes [#/volume] correc herbert for nucleated erythrocytes in Blood by Automated counOrdered By: Jose Valdovinos on 05-02-2024 WBC corrected for nucl RBC Auto (Bld) [#/Vol] 5.2 10*3/uL 4.1-10.5 [facility] WBC corrected for nucl RBC Auto (Bld) [#/Vol] Leukocytes [#/volume] corrected for nucleated erythrocytes in Blood by Automated coun .1-. [facility] Leukocytes [#/volume] in Blo od by Automated countOrdered By: Jose Valdovinos on 05-02-2024 WBC (Bld) [#/Vol] 5.2 10*3/uL Normal 4.1-10.5 [facility] Comment on above: Performed By: #### C BC, BMP, A1C WTH eA, HEPATIC, LIPID #### [facility] [address] [place] [address] [place] #### IGG #### [facility] , Lipid Panelon 05-02-2024 LDL Cholesterol,Calculated 61 mg/dL Normal 0-100 [facility] Comment on above: Result Comment: LDL ATP III CLASSIFICATION LDL less than 100 mg/dL Optimal LDL 100-129 mg/dL Near or above optimal LDL 130-159 mg/dL Borderline high LDL 160-189 mg/dL High LDL greater than 189 mg/dL Very high Performed By: #### C BC, BMP, A1C WTH eA, HEPATIC, LIPID #### [facility] [address] [place] [address] [place] #### IGG #### [facility] , Triglyceride w/Reflex 201 mg/dL High 0-149 The Counts Include 234 Beds At [facility] Comment on above: Result Comment: TRIG ATP III CLASSIFICATION TRIG less than 150 mg/dL Normal TRIG 150-199 mg/dL Borderline high TRIG 200-500 mg/dL High TRIG greater than 500 mg/dL Very high Standard traceable to the Center for Disease Conrtrol and Prevention (CDC) test method. Performed By: #### C BC, BMP, A1C WTH eA, HEPATIC, LIPID #### [facility] [address] [place] [address] [place] #### IGG #### [facility] , VLDL CHOLESTEROL 40 mg/dL Normal [facility] Comment on above: Performed By: #### C BC, BMP, A1C WTH eA, HEPATIC, LIPID #### [facility] [address] [place] [address] [place] #### IGG #### [facility] , Lymphocytes Auto (Bld) [#/Vo l]Ordered By: Jose Valdovinos on 05-02-2024 Lymphocytes (Bld) [#/Vol] Lymphocytes [#/volume] in Blood by Automated count 1.00-4.8 [facility] Lymphocytes [#/volume] in Bl ood by Automated countOrdered By: Jose Valdovinos on 05-02-2024 Lymphocytes (Bld) [#/Vol] 1.0 10*3/uL Normal 1.00-4.8 [facility] Comment on above: Performed By: #### C BC, BMP, A1C WTH eA, HEPATIC, LIPID #### [address] #### IGG #### [facility] , Lymphocytes/100 WBC Auto (Bl d)Ordered By: Jose Valdovinos on 05-02-2024 Lymphocytes/100 WBC (Bld) Lymphocytes/100 leukocytes in Blood by Automated count . [facility] Lymphocytes/100 leukocytes i n Blood by Automated countOrdered By: Jose Valdovinos on 05-02-2024 Lymphocytes/100 WBC (Bld) 18.6 % Normal . [facility] Comment on above: Performed By: #### C BC, BMP, A1C WTH eA, HEPATIC, LIPID #### [place] [address] [place] #### IGG #### [facility] , MCH Auto (RBC) [Entitic mass ]Ordered By: Jose Valdovinos on 05-02-2024 MCH (RBC) [Entitic mass] MCH [Entitic mass] by Automated count 27.5-35.2 [facility] MCH [Entitic mass] by Automa herbert countOrdered By: Jose Valdovinos on 05-02-2024 MCH (RBC) [Entitic mass] 33.3 pg Normal 27.5-35.2 [facility] Comment on above: Performed By: #### C BC, BMP, A1C WTH eA, HEPATIC, LIPID #### [facility] [address] [place] [address] [place] #### IGG #### [facility] , MCHC Auto (RBC) [Mass/Vol]Or dered By: Jose Valdovinos on 05-02-2024 MCHC (RBC) [Mass/Vol] 34.5 g/dL 32.5-35.[address] [facility] MCHC (RBC) [Mass/Vol] MCHC [Mass/volume] by Automated count 32.5-35.6 [facility] MCV Auto (RBC) [Entitic vol] Ordered By: Jose Valdovinos on 05-02-2024 MCV (RBC) [Entitic vol] MCV [Entitic volume] by Automated count 83.5-101 [facility] MCV [Entitic volume] by Auto mated countOrdered By: Jose Valdovinos on 05-02-2024 MCV (RBC) [Entitic vol] 96.6 fL Normal 83.5-101 [facility] Comment on above: Performed By: #### C BC, BMP, A1C WTH eA, HEPATIC, LIPID #### [facility] [address] [place] [address] [place] #### IGG #### [facility] , Monocytes Auto (Bld) [#/Vol] Ordered By: Jose Valdovinos on 05-02-2024 Monocytes (Bld) [#/Vol] Automated blood monocyte count 0.0-0.8 [facility] Monocytes/100 WBC Auto (Bld) Ordered By: Jose Valdovinos on 05-02-2024 Monocytes/100 WBC (Bld) Automated monocyte % . [facility] Neutrophils Auto (Bld) [#/Vo l]Ordered By: Jose Valdovinos on 05-02-2024 Neutrophils (Bld) [#/Vol] Neutrophils [#/volume] in Blood by Automated count 1.8-7.7 [facility] Neutrophils [#/volume] in Bl ood by Automated countOrdered By: Jose Valdovinos on 05-02-2024 Neutrophils (Bld) [#/Vol] 3.5 10*3/uL Normal 1.8-7.7 [facility] Comment on above: Performed By: #### C BC, BMP, A1C WT eA, HEPATIC, LIPID #### [facility] [address] [place] [address] #### IGG #### [facility] , Neutrophils/100 WBC Auto (Bl d)Ordered By: Jose Valdovinos on 05-02-2024 Neutrophils/100 WBC (Bld) Automated neutrophil % . [facility] No Panel InformationOrdered By: Jose Valdovinos on 05-02-2024 Estimated GFR (CKD-EPI) > 60.0 mL/Min [facility] Creatinine Clearance (Chem N/A [facility] Nucleated erythrocytes [Pres ence] in Blood by Automated countOrdered By: Jose Valdovinos on 05-02-2024 Nucleated RBC Auto Ql (Bld) 0.0 /100{WBC} 0-0.5 [facility] Nucleated RBC Auto Ql (Bld) Nucleated erythrocytes [Presence] in Blood by Automated count 0-0.5 [facility] Platelet mean volume Auto (B ld) [Entitic vol]Ordered By: Jose Valdovinos on 05-02-2024 Platelet mean volume (Bld) [Entitic vol] Platelet mean volume [Entitic volume] in Blood by Automated count 6.6-10.1 [facility] Platelet mean volume [Entiti c volume] in Blood by Automated countOrdered By: Jose Valdovinos on 05-02-2024 Platelet mean volume (Bld) [Entitic vol] 9.7 fL Normal 6.6-10.1 [facility] Comment on above: Performed By: #### C BC, BMP, A1C WTH eA, HEPATIC, LIPID #### [facility] [address] [place] [address] [place] #### IGG #### [facility] , Platelets Auto (Bld) [#/Vol] Ordered By: Jose Valdovinos on 05-02-2024 Platelets (Bld) [#/Vol] Platelets [#/volume] in Blood by Automated count Low 150-450 [facility] Platelets [#/volume] in Bloo d by Automated countOrdered By: Jose Valdovinos on 05-02-2024 Platelets (Bld) [#/Vol] 143 10*3/uL Low 150-450 [facility] Comment on above: Performed By: #### C BC, BMP, A1C WTH eA, HEPATIC, LIPID #### [facility] [address] [place] [address] [place] #### IGG #### [facility] , Potassium [Moles/volume] in Serum or PlasmaOrdered By: Jose Valdovinos on 05-02-2024 Potassium [Moles/Vol] 4.2 mmol/L Normal 3.5-5.[address] [facility] Comment on above: Performed By: #### C BC, BMP, A1C WTH eA, HEPATIC, LIPID #### [facility] [address] [place] [address] [place] #### IGG #### [facility] , Potassium [Moles/Vol] Potassium [Moles/v olume] in Serum or Plasma 3.5-5.1 [facility] Protein [Mass/volume] in Ser um or PlasmaOrdered By: Jose Valdovinos on 05-02-2024 Protein [Mass/Vol] 6.4 g/dL Normal 6.4-8.9 [facility] Comment on above: Performed By: #### C BC, BMP, A1C WTH eA, HEPATIC, LIPID #### [facility] [address] [place] [address] [place] #### IGG #### [facility] , Protein [Mass/Vol] Protein [Mass/volume ] in Serum or Plasma 6.4-8.9 [facility] RBC Auto (Bld) [#/Vol]Ordere d By: Jose Valdovinos on 05-02-2024 RBC (Bld) [#/Vol] Erythrocytes [#/volu me] in Blood by Automated count 3.90-5.60 [facility] Serum globulin measurement b y calculation (mass/volume)Ordered By: Jose Valdovinos on 05-02-2024 Globulin (S) [Mass/Vol] 2.1 g/dL [facility] Comment on above: Performed By: #### C BC, BMP, A1C WTH eA, HEPATIC, LIPID #### [facility] [address] [place] [address] [place] #### IGG #### [facility] , Serum or plasma IgG measurem ent (mass/volume)Ordered By: Jose Valdovinos on 05-02-2024 IgG [Mass/Vol] IgG [Mass/volume] in Serum or Plasma [phone] [facility] Comment on above: Performed at: [place] [id number] Director: Humberto Farrar PhD, Phone: [phone] Serum or plasma albumin/glob ulin mass ratioOrdered By: Jose Valdovinos on 05-02-2024 Albumin/Globulin [Mass ratio] 2.0 {ratio} [facility] Comment on above: Performed By: #### C BC, BMP, A1C WTH eA, HEPATIC, LIPID #### [facility] [address] [place] [address] [place] #### IGG #### [facility] , Albumin/Globulin [Mass ratio] Serum or plasma albumin/globulin mass ratio [facility] Serum or plasma anion gap de terminationOrdered By: Jose Valdovinos on 05-02-2024 Anion gap [Moles/Vol] 9.1 mmol/L Normal 6.0-15.[address] [facility] Comment on above: Performed By: #### C BC, BMP, A1C WTH eA, HEPATIC, LIPID #### [facility] [address] [place] [address] [place] #### IGG #### [facility] , Anion gap [Moles/Vol] Serum or plasma an ion gap determination 6.0-15.0 [facility] Serum or plasma high density lipoprotein (HDL) cholesterol measurementOrdered By: Jose Valdovinos on 05-02-2024 Cholesterol in HDL [Mass/Vol] 39 mg/dL Normal 23-92 [facility] Comment on above: HDL CHOL ATP-III CLA SSIFICATION Cardiovascular RiskHDL > or equal to 60 mg/dL LOWHDL < 40 mg/dL HIGH Result Comment: HDL CHOL ATP-III CLASSIFICATION Cardiovascular Risk HDL > or equal to 60 mg/dL LOW HDL < 40 mg/dL HIGH Performed By: #### C BC, BMP, A1C WTH eA, HEPATIC, LIPID #### [facility] [address] #### IGG #### [facility] , Serum or plasma non-glucuron idated bilirubin measurement (mass/volume)Ordered By: Jose Valdovinos on 05-02-2024 Bilirubin.indirect [Mass/Vol] 0.5 mg/dL [facility] Bilirubin.indirect [Mass/Vol] Serum or plasma non-glucuronidated bilirubin measurement (mass/volume) [facility] Serum or plasma total choles terol/high density lipoprotein (HDL) cholesterol mass ratOrdered By: Jose Valdovinos on 05-02-2024 Cholesterol.total/Chol esterol in HDL [Mass ratio] 3.6 {ratio} Normal <5.0 [facility] Comment on above: Result Comment: PERF ORMED BY: [place] [address] PATHOLOGIST INCIDENT MANAGER MARJORIE WAYNE M.D. Performed By: #### C BC, BMP, A1C WTH eA, HEPATIC, LIPID #### [facility] [address] [place] [address] #### IGG #### [facility] , Cholesterol.total/Chol esterol in HDL [Mass ratio] Serum or plasma total cholesterol/high density lipoprotein (HDL) cholesterol mass rat <5.0 [facility] Sodium [Moles/volume] in Ser um or PlasmaOrdered By: Jose Valdovinos on 05-02-2024 Sodium [Moles/Vol] 137 mmol/L Normal 136-145 [facility] Comment on above: Performed By: #### C BC, BMP, A1C WTH eA, HEPATIC, LIPID #### [facility] [address] [place] [address] [place] #### IGG #### [facility] , Sodium [Moles/Vol] Sodium [Moles/volume ] in Serum or Plasma 136-145 [facility] Triglyceride [Mass/volume] i n Serum or PlasmaOrdered By: Jose Valdovinos on 05-02-2024 Triglyceride [Mass/Vol] 201 mg/dL High 0-149 [facility] Comment on above: TRIG ATP III CLASSIF ICATIONTRIG less than 150 mg/dL NormalTRIG 150-199 mg/dL Borderline highTRIG 200-500 mg/dL High TRIG greater than 500 mg/dL Very highStandard traceable to the Center for Disease Conrtrol and Prevention (CDC) test method. Triglyceride [Mass/Vol] Triglyceride [Mass/volume] in Serum or Plasma High 0-149 [facility] Comment on above: TRIG ATP III CLASSIF ICATIONTRIG less than 150 mg/dL NormalTRIG 150-199 mg/dL Borderline highTRIG 200-500 mg/dL High TRIG greater than 500 mg/dL Very highStandard traceable to the Center for Disease Conrtrol and Prevention (CDC) test method. Urea nitrogen [Mass/volume] in Serum or PlasmaOrdered By: Jose Valdovinos on 05-02-2024 Urea nitrogen [Mass/Vol] 24 mg/dL Normal 01-20 [facility] Comment on above: Performed By: #### C BC, BMP, A1C WTH eA, HEPATIC, LIPID #### [facility] [address] [place] [address] [place] #### IGG #### [facility] , Urea nitrogen [Mass/Vol] Urea nitrogen [Mass/volume] in Serum or Plasma 01-20 [facility] WBC Auto (Bld) [#/Vol]Ordere d By: Jose Valdovinos on 05-02-2024 WBC (Bld) [#/Vol] Leukocytes [#/volume ] in Blood by Automated count 4.1-10.5 [facility] Hemoglobin [Mass/volume] in BloodOrdered By: Rosey Dubose on 02-23-2024 Hemoglobin (Bld) [Mass/Vol] 15.8 g/dL 13.0-17.0 [facility] Hemoglobin (Bld) [Mass/Vol] Hemoglobin [Mass/volume] in Blood 13.0-17.0 [facility] Prostate specific Ag [Mass/v olume] in Serum or PlasmaOrdered By: Rosey Dubose on 02-23-2024 Prostate specific Ag [Mass/Vol] 0.090 ng/mL 0.000-4.00 0 [facility] Comment on above: Serial tumor marker results determined by assays using different manufacturers or methods may not be comparable.Counts Include [facility] capacitor pack press operator and method:Catapult DXI, CHEMILUMINESCENT IMMUNOASSAY. Prostate specific Ag [Mass/Vol] Prostate specific Ag [Mass/volume] in Serum or Plasma 0.000-4.00 0 [facility] Comment on above: Serial tumor marker results determined by assays using different manufacturers or methods may not be comparable.Counts Include [facility] capacitor pack press operator and method:Catapult DXI, CHEMILUMINESCENT IMMUNOASSAY. Testosterone [Mass/volume] i n Serum or PlasmaOrdered By: Rosey Dubose on 02-23-2024 Testosterone [Mass/Vol] 1.00 ng/mL Low 1.75-7.81 [facility] Testosterone [Mass/Vol] Testosterone [Mass/volume] in Serum or Plasma Low 1.75-7.81 [facility] No Panel Informationon 02-15 RAIMUNDO Garcia 024 9:23 AM Trigger Point Injection: right cervical paraspinals, left cervical paraspinals on 02/16/2024 8:20 AM Indications: pain, muscle spasm and myalgia Details: 25 G needle Medications: 40 mg methylPREDNISolone Na Suc (PF) 40 MG; 3 mL bupivacaine 0.25 % Outcome: tolerated well, no immediate complications Procedure, treatment alternatives, risks and benefits explained, specific risks discussed. Consent was given by the patient. [facility] MRI Spine Lumbar w/ + w/o Co ntraston 01-28-2024 MRI Spine Lumbar w/ + w/o Contrast Exam Date/Time: 01/25/2024 19:24 EDT Reason for Exam: M54.16 Report IMPRESSION: NO SIGNIFICANT CHANGE FROM 05/28/2023. EXAM: MRI Spine Lumbar w/ + w/o Contrast DATE: 01/25/2024 6:25 PM CLINICAL HISTORY: M54.16. COMPARISON: Outside lumbar spine radiographs 01/13/2024 and lumbar spine MRI 05/28/2023. TECHNIQUE: Multiplanar MR imaging of the lumbar spine was performed before and after intravenous administration of approximately 10 mL of Vueway contrast. FINDINGS: The spine is visualized from T11-12 through S2, on the diagnostic sagittal sequences. Alignment: Lumbar lordosis is maintained. Vertebral body heights and alignment are within normal limits. Bone marrow signal/fracture: Type II degenerative endplate changes L4-5 and L5-S1. There is no abnormal enhancement identified. Conus: The conus is within normal limits of signal intensity and morphology. Paraspinal soft tissues: Stable postoperative changes from 05/28/2023 with a small seroma posterior to L5. No abnormal enhancement or findings to suggest infection. Lower thoracic spine: Visualized lower thoracic canal and foramina are without significant narrowing. L1-2: Mild diffuse disc bulging with a small broad-based central to left subarticular disc protrusion migrating cephalad, and mild hypertrophic facet changes, which results in borderline central canal stenosis and left lateral recess narrowing. No significant neural foraminal narrowing or significant disc extrusion. L2-3: Small to moderate-sized broad-based left foraminal disc protrusion that results in mild to moderate neural foraminal narrowing. No significant central spinal stenosis or right neural foraminal narrowing. L3-4: Moderate hypertrophic facet changes without central spinal stenosis or neural foraminal narrowing. L4-5: Previous posterior and anterior fusion with intervertebral disc implants. No central spinal stenosis or neural foraminal narrowing. Report L5-1: Previous posterior and anterior fusion with intervertebral disc implants. No central spinal stenosis or neural foraminal narrowing. Sacrum and iliac wings: Unremarkable. Ordering Provider: JUSTYNA MARTINEZ FINAL REPORT Dictated: 01/28/2024 3:28 pm Ricki Guzman MD Signed (Electronic Signature): 01/28/2024 3:28 pm Signed by: Ricki Guzman MD Transcribed by: MARGAUX Technologist: ZEB Technical Comments Vueway Contrast amount in ml's: 10 Normal [facility] CHEMISTRYOrdered By: SYSTEM SYSTEM on 01-25-2024 eGFR 61 mL/min/1.73 m2 Normal >=59mL/min /1.73 m2 Remisol Chem Creatinineon 01-25-2024 Creatinine [Mass/Vol] 1.3 mg/dL Normal 0.5-1.3 [facility] Comment on above: Performed By: #### [id number] #### [facility] [address] [place] [address] Estimated glomerular filtrat ion rate (GFR) non- Americanon 01-25-2024 GFR/1.73 sq M.predicted among non-blacks MDRD (S/P/Bld) [Vol rate/Area] 61 mL/min/1.73 m2 >=59 [facility] - Chemistry and C hemistry - challengeOrdered By: SYSTEM SYSTEM on 01-25-2024 Creatinine [Mass/Vol] 1.3 mg/dL 0.5-1.3 Rem isol Chem eGFRon 01-25-2024 eGFR 61 mL/min/1.73 m2 Normal >=59 [facility] Comment on above: Order Comment: Order added by Discern Expert. Performed By: #### [id number] #### [facility] [address] [place] [address] Alanine aminotransferase [En zymatic activity/volume] in Serum or PlasmaOrdered By: Jose Valdovinos on 10-24-2023 ALT [Catalytic activity/Vol] 24 U/L 7-52 [facility] Albumin [Mass/volume] in Ser um or Plasma by Bromocresol green (BCG) dye binding methoOrdered By: Jose Valdovinos on 10-24-2023 Albumin BCG dye [Mass/Vol] 4.3 g/dL 3.5-5.7 [facility] Alkaline phosphatase [Enzyma tic activity/volume] in Serum or PlasmaOrdered By: Jose Obgustabor on 10-24-2023 ALP [Catalytic activity/Vol] 55 U/L 34-104 [facility] Aspartate aminotransferase [ Enzymatic activity/volume] in Serum or PlasmaOrdered By: Jose Whyter on 10-24-2023 AST [Catalytic activity/Vol] 18 U/L 13-39 [facility] Basophils Auto (Bld) [#/Vol] Ordered By: Jose Valdovinos on 10-24-2023 Basophils (Bld) [#/Vol] 0.1 10*3/uL 0.0-0.2 [facility] Basophils/100 WBC Auto (Bld) Ordered By: Jose Valdovinos on 10-24-2023 Basophils/100 WBC (Bld) 1.0 % . [facility] Bilirubin.direct [Mass/volum e] in Serum or PlasmaOrdered By: Jose Valdovinos on 10-24-2023 Bilirubin.direct [Mass/Vol] 0.10 mg/dL 0.03-0.18 [facility] Bilirubin.total [Mass/volume ] in Serum or PlasmaOrdered By: Jose Valdovinos on 10-24-2023 Bilirubin [Mass/Vol] 0.5 mg/dL 0.3-1.0 [facility] Calcium [Mass/volume] in Ser um or PlasmaOrdered By: Jose Valdovinos on 10-24-2023 Calcium [Mass/Vol] 9.2 mg/dL 8.6-10.3 [facility] Carbon dioxide, total [Moles /volume] in Serum or PlasmaOrdered By: Jose Valdovinos on 10-24-2023 CO2 [Moles/Vol] 29.3 mmol/L 21.0-31.0 [facility] Chloride [Moles/volume] in S irma or PlasmaOrdered By: Jose Valdovinos on 10-24-2023 Chloride [Moles/Vol] 100 mmol/L 98-107 [facility] Cholesterol [Mass/volume] in Serum or PlasmaOrdered By: Jose Valdovinos on 10-24-2023 Cholesterol [Mass/Vol] 139 mg/dL Low 140-200 [facility] Comment on above: Chol less than 200 m g/dl low riskChol 201-239 mg/dl borderline riskChol 240 mg/dl and greater high risk Cholesterol in LDL Calc [Mas s/Vol]Ordered By: Jose Valdovinos on 10-24-2023 Cholesterol in LDL [Mass/Vol] 51 mg/dL 0-100 [facility] Comment on above: LDL ATP III CLASSIFI CATIONLDL less than 100 mg/dL OptimalLDL 100-129 mg/dL Near or above optimalLDL 130-159 mg/dL Borderline highLDL 160-189 mg/dL HighLDL greater than 189 mg/dL Very high Cholesterol in VLDL Calc [Ma ss/Vol]Ordered By: Jose Valdovinos on 10-24-2023 Cholesterol in VLDL [Mass/Vol] 48 mg/dL [facility] Creatinine [Mass/volume] in Serum or PlasmaOrdered By: Jose Valdovinos on 10-24-2023 Creatinine [Mass/Vol] 1.42 mg/dL High 0.70-1.[address] [facility] Eosinophils Auto (Bld) [#/Vo l]Ordered By: Jose Valdovinos on 10-24-2023 Eosinophils (Bld) [#/Vol] 0.2 10*3/uL 0.0-0.45 [facility] Eosinophils/100 WBC Auto (Bl d)Ordered By: Jose Valdovinos on 10-24-2023 Eosinophils/100 WBC (Bld) 3.6 % . [facility] Erythrocyte distribution wid th Auto (RBC) [Ratio]Ordered By: Jose Valdovinos on 10-24-2023 Erythrocyte distribution width (RBC) [Ratio] 13.8 % 12.0-14.8 [facility] Ferritin [Mass/volume] in Se rum or PlasmaOrdered By: Jose Valdovinos on 10-24-2023 Ferritin [Mass/Vol] 89.9 ng/mL 23.9-336.2 [facility] Globulin Calc (S) [Mass/Vol] Ordered By: Jose Valdovinos on 10-24-2023 Globulin (S) [Mass/Vol] 1.9 g/dL [facility] Glucose [Mass/volume] in Ser um or PlasmaOrdered By: Jose Valdovinos on 10-24-2023 Glucose [Mass/Vol] 112 mg/dL High 70-100 [facility] Comment on above: ADA recommended refe rence rangeRandom Glucose Reference Range is dependent on time and content of last meal. Glucose of more than 200 mg/dL in a nonstressed, ambulatory subject supports the diagnosis of Diabetes Mellitus. Glucose mean value [Mass/vol ume] in Blood Estimated from glycated hemoglobinOrdered By: Jose Valdovinos on 10-24-2023 Average glucose Estimated from glycated hemoglobin (Bld) [Mass/Vol] 111 mg/dL [facility] Hematocrit Auto (Bld) [Volum e fraction]Ordered By: Jose Valdovinos on 10-24-2023 Hematocrit (Bld) [Volume fraction] 46.2 % 38.8-50.0 [facility] Hemoglobin A1c percentageOrd ered By: Jose Valdovinos on 10-24-2023 HbA1c (Bld) [Mass fraction] 5.5 % 4.3-5.6 [facility] Comment on above: Increased risk for d iabetes: 5.7 - 6.4diabetes: >6.4glycemic control for adults with diabetes: <7.0 Hemoglobin [Mass/volume] in BloodOrdered By: Jose Valdovinos on 10-24-2023 Hemoglobin (Bld) [Mass/Vol] 15.9 g/dL 13.0-17.0 [facility] Iron [Mass/volume] in Serum or PlasmaOrdered By: Jose Valdovinos on 10-24-2023 Iron [Mass/Vol] 65 ug/dL 50-212 [facility] Leukocytes [#/volume] correc herbert for nucleated erythrocytes in Blood by Automated counOrdered By: Jose Valdovinos on 10-24-2023 WBC corrected for nucl RBC Auto (Bld) [#/Vol] 5.3 10*3/uL 4.1-10.5 [facility] Lymphocytes Auto (Bld) [#/Vo l]Ordered By: Jose Valdovinos on 10-24-2023 Lymphocytes (Bld) [#/Vol] 1.0 10*3/uL 1.00-4.8 [facility] Lymphocytes/100 WBC Auto (Bl d)Ordered By: Jose Valdovinos on 10-24-2023 Lymphocytes/100 WBC (Bld) 18.3 % . [facility] MCH Auto (RBC) [Entitic mass ]Ordered By: Jose Valdovinos on 10-24-2023 MCH (RBC) [Entitic mass] 32.7 pg 27.5-35.2 [facility] MCHC Auto (RBC) [Mass/Vol]Or dered By: Jose Valdovinos on 10-24-2023 MCHC (RBC) [Mass/Vol] 34.5 g/dL 32.5-35.[address] [facility] MCV Auto (RBC) [Entitic vol] Ordered By: Jose Valdovinos on 10-24-2023 MCV (RBC) [Entitic vol] 94.7 fL 83.5-101 [facility] Monocytes Auto (Bld) [#/Vol] Ordered By: Jose Valdovinos on 10-24-2023 Monocytes (Bld) [#/Vol] 0.7 10*3/uL 0.0-0.8 [facility] Monocytes/100 WBC Auto (Bld) Ordered By: Jose Valdovinos on 10-24-2023 Monocytes/100 WBC (Bld) 14.1 % . [facility] Neutrophils Auto (Bld) [#/Vo l]Ordered By: Jose Valdovinos on 10-24-2023 Neutrophils (Bld) [#/Vol] 3.3 10*3/uL 1.8-7.7 [facility] Neutrophils/100 WBC Auto (Bl d)Ordered By: Jose Valdovinos on 10-24-2023 Neutrophils/100 WBC (Bld) 63.0 % . [facility] No Panel InformationOrdered By: Jose Valdovinos on 10-24-2023 Estimated GFR (CKD-EPI) 55.179 mL/Min [facility] Creatinine Clearance (Chem N/A [facility] Nucleated erythrocytes [Pres ence] in Blood by Automated countOrdered By: Jose Valdovinos on 10-24-2023 Nucleated RBC Auto Ql (Bld) 0.1 /100{WBC} 0-0.5 [facility] Platelet mean volume Auto (B ld) [Entitic vol]Ordered By: Jose Valdovinos on 10-24-2023 Platelet mean volume (Bld) [Entitic vol] 8.8 fL 6.6-10.1 [facility] Platelets Auto (Bld) [#/Vol] Ordered By: Jose Valdovinos on 10-24-2023 Platelets (Bld) [#/Vol] 171 10*3/uL 150-450 [facility] Potassium [Moles/volume] in Serum or PlasmaOrdered By: Jose Valdovinos on 10-24-2023 Potassium [Moles/Vol] 4.7 mmol/L 3.5-5.[address] [facility] Protein [Mass/volume] in Ser um or PlasmaOrdered By: Jose Valdovinos on 10-24-2023 Protein [Mass/Vol] 6.2 g/dL Low 6.4-8.9 [facility] RBC Auto (Bld) [#/Vol]Ordere d By: Jose Valdovinos on 10-24-2023 RBC (Bld) [#/Vol] 4.87 10*6/uL 3.90-5.60 [facility] Serum or plasma albumin/glob ulin mass ratioOrdered By: Jose Valdovinos on 10-24-2023 Albumin/Globulin [Mass ratio] 2.3 {ratio} [facility] Serum or plasma anion gap de terminationOrdered By: Jose Valdovinos on 10-24-2023 Anion gap [Moles/Vol] 15.4 mmol/L High 6.0-15.0 [facility] Serum or plasma high density lipoprotein (HDL) cholesterol measurementOrdered By: Jose Valdovinos on 10-24-2023 Cholesterol in HDL [Mass/Vol] 39 mg/dL 23-92 [facility] Comment on above: HDL CHOL ATP-III CLA SSIFICATION Cardiovascular RiskHDL > or equal to 60 mg/dL LOWHDL < 40 mg/dL HIGH Serum or plasma non-glucuron idated bilirubin measurement (mass/volume)Ordered By: Jose Valdovinos on 10-24-2023 Bilirubin.indirect [Mass/Vol] 0.4 mg/dL [facility] Serum or plasma total choles terol/high density lipoprotein (HDL) cholesterol mass ratOrdered By: Jose Valdovinos on 10-24-2023 Cholesterol.total/Chol esterol in HDL [Mass ratio] 3.6 {ratio} <5.0 [facility] Sodium [Moles/volume] in Ser um or PlasmaOrdered By: Jose Valdovinos on 10-24-2023 Sodium [Moles/Vol] 140 mmol/L 136-145 [facility] Triglyceride [Mass/volume] i n Serum or PlasmaOrdered By: Jose Valdovinos on 10-24-2023 Triglyceride [Mass/Vol] 243 mg/dL High 0-149 [facility] Comment on above: TRIG ATP III CLASSIF ICATIONTRIG less than 150 mg/dL NormalTRIG 150-199 mg/dL Borderline highTRIG 200-500 mg/dL High TRIG greater than 500 mg/dL Very highStandard traceable to the Center for Disease Conrtrol and Prevention (CDC) test method. Urea nitrogen [Mass/volume] in Serum or PlasmaOrdered By: Jose Valdovinos on 10-24-2023 Urea nitrogen [Mass/Vol] 23 mg/dL 7-25 [facility] WBC Auto (Bld) [#/Vol]Ordere d By: Jose Valdovinos on 10-24-2023 WBC (Bld) [#/Vol] 5.3 10*3/uL 4.1-10.5 [facility] Alternaria alternata IgE Ab [Units/volume] in SerumOrdered By: Helena Posey on 08-24-2023 A. alternata IgE Qn (S) <0.10 kU/L Class 0 [facility] Danish house dust mite IgE Ab [Units/volume] in SerumOrdered By: Helena Posey on 08-24-2023 Danish house dust mite IgE Qn (S) <0.10 kU/L Class 0 [facility] Aspergillus fumigatus IgE Ab [Units/volume] in SerumOrdered By: Helena Posey on 08-24-2023 A. fumigatus IgE Qn (S) <0.10 kU/L Class 0 [facility] Bermuda grass IgE Ab [Units/ volume] in SerumOrdered By: Helena Posey on 08-24-2023 B[place] grass IgE Qn (S) <0.10 kU/L Class 0 [facility] Boxelder IgE Ab [Units/volum e] in SerumOrdered By: Helena Posey on 08-24-2023 Boxelder IgE Qn (S) <0.10 kU/L Class 0 [facility] Cladosporium herbarum IgE Ab [Units/volume] in SerumOrdered By: Helena Posey on 08-24-2023 C. herbarum IgE Qn (S) <0.10 kU/L Class 0 [facility] Cockroach IgE Ab [Units/volu me] in SerumOrdered By: Helena Posey on 08-24-2023 Cockroach IgE Qn (S) 0.14 kU/L Class 0/I [facility] Mccurtain IgE Ab [Units/vol ume] in SerumOrdered By: Helena Posey on 08-24-2023 Mccurtain IgE Qn (S) <0.10 kU/L Class [address] [facility] Dog dander IgE Ab [Units/vol ume] in SerumOrdered By: Helena Posey on 08-24-2023 Dog dander IgE Qn (S) <0.10 kU/L Class [address] [facility] house dust mite IgE Ab [Units/volume] in SerumOrdered By: Helena Posey on 08-24-2023 house dust mite IgE Qn (S) <0.10 kU/L Class 0 [facility] IgE [Units/volume] in Serum or PlasmaOrdered By: Helena Posey on 08-24-2023 IgE Qn 49 [IU]/mL 6-495 [facility] Mountain Juniper IgE Ab [Uni ts/volume] in SerumOrdered By: Helena Posey on 08-24-2023 Mountain Juniper IgE Qn (S) <0.10 kU/L Class 0 [facility] Mouse urine proteins IgE Ab [Units/volume] in SerumOrdered By: Helena Posey on 08-24-2023 Mouse urine proteins IgE Qn (S) <0.10 kU/L Class 0 [facility] Comment on above: Performed at: [address] [id number] Director: Hernan Lozoya MD, Phone: [phone] No Panel InformationOrdered By: Helena Posey on 08-24-2023 Allergen Note See comment . [facility] Comment on above: Levels of Specific I gE Class Description of Class ----- < 0.10 0 Negative 0.10 - 0.31 0/I Equivocal/Low 0.32 - 0.55 I Low 0.56 - 1.40 II Moderate 1.41 - 3.90 III High 3.91 - 19.00 IV Very High 19.01 - 100.00 V Very High >100.00 Very High Pecan or [place] Tree IgE Ab [Units/volume] in SerumOrdered By: Helena Posey on 08-24-2023 Pecan or [place] Tree IgE Qn (S) <0.10 kU/L Class 0 [facility] Saltwort IgE Ab [Units/volum e] in SerumOrdered By: Helena Posey on 08-24-2023 Saltwort IgE Qn (S) <0.10 kU/L Class 0 [facility] Serum Danish sycamore IgE antibody assay (units/volume)Ordered By: Helena Posey on 08-24-2023 Danish Skytop IgE Qn (S) <0.10 kU/L Class 0 [facility] Serum Penicillium chrysogenu m specific IgE antibody assayOrdered By: Helena Posey on 08-24-2023 P. notatum IgE Qn (S) <0.10 kU/L Class [address] [facility] Serum cat dander IgG antibod y assay (units/volume)Ordered By: Helena Posey on 08-24-2023 Cat dander IgG Qn (S) <0.10 kU/L Class [address] [facility] Serum rough pigweed IgE anti body assay (units/volume)Ordered By: Helena Posey on 08-24-2023 Rough Pigweed IgE Qn (S) <0.10 kU/L Class 0 [facility] Serum short ragweed specific IgE antibody assayOrdered By: Helena Posey on 08-24-2023 Common Ragweed IgE Qn (S) <0.10 kU/L Class 0 [facility] Serum white elm IgG antibody assay (units/volume)Ordered By: Helena Posey on 08-24-2023 White Elm IgG Qn (S) <0.10 kU/L Class [address] [facility] Sheep [place] IgE Ab [Units/v olume] in SerumOrdered By: Helena Posey on 08-24-2023 Sheep [place] IgE Qn (S) <0.10 kU/L Class 0 [facility] Silver Birch IgE Ab [Units/v olume] in SerumOrdered By: Helena Posey on 08-24-2023 Silver Birch IgE Qn (S) <0.10 kU/L Class 0 [facility] Randy IgE Ab [Units/volume ] in SerumOrdered By: Helena Posey on 08-24-2023 Randy IgE Qn (S) <0.10 kU/L Class 0 [facility] [place] IgE Ab [Units/volume] in SerumOrdered By: Helena Posey on 08-24-2023 [place] IgE Qn (S) <0.10 kU/L Class 0 [facility] White [place]ureliano IgE Ab [Units/volu me] in SerumOrdered By: Helena Posey on 08-24-2023 White [place] IgE Qn (S) <0.10 kU/L Class [address] [facility] Leadore IgE Ab [Units/volu me] in SerumOrdered By: Helena Posey on 08-24-2023 [place] IgE Qn (S) <0.10 kU/L Class [address] [facility] White mulberry IgE Ab [Units /volume] in SerumOrdered By: Helena Posey on 08-24-2023 White mulberry IgE Qn (S) <0.10 kU/L Class 0 [facility] Alanine aminotransferase [En zymatic activity/volume] in Serum or PlasmaOrdered By: John Soto on 07-30-2023 ALT [Catalytic activity/Vol] 20 U/L 52 [facility] Albumin [Mass/volume] in Ser um or Plasma by Bromocresol green (BCG) dye binding methoOrdered By: John Soto on 07-30-2023 Albumin BCG dye [Mass/Vol] 4.6 g/dL 3.5-5.7 [facility] Alkaline phosphatase [Enzyma tic activity/volume] in Serum or PlasmaOrdered By: John Soto on 07-30-2023 ALP [Catalytic activity/Vol] 57 U/L 34-104 [facility] Aspartate aminotransferase [ Enzymatic activity/volume] in Serum or PlasmaOrdered By: John Soto on 07-30-2023 AST [Catalytic activity/Vol] 16 U/L 13-39 [facility] Atypical perinuclear antineu trophil cytoplasmic antibodies measurementOrdered By: John Soto on 07-30-2023 Neutrophil cytoplasmic Ab.perinuclear.atypica l IF (S) [Titer] <1:20 titer Neg:<1:20 [facility] Comment on above: The atypical pANCA p attern has been observed in asignificant percentage of patients with ulcerative colitis,primary sclerosing cholangitis and autoimmune hepatitis. ASCA+/PANCA- Suggestive of Crohn's disease ASCA-/PANCA+ Suggestive of Ulcerative colitisPerformed at: [facility] [address] [id number] Director: Hernan Lozoya MD, Phone: [phone] at: [facility] [address] [id number] Director: Humberto Farrar PhD, Phone: [phone] Felix's yeast IgA Ab [Units/ volume] in SerumOrdered By: John Soto on 07-30-2023 Felix's yeast IgA Qn (S) <20.0 Units 0.0-24.9 [facility] Comment on above: Negative <20.0 Equiv [...] Basophils Auto (Bld) [#/Vol] Ordered By: John oSto on 07-30-2023 Basophils (Bld) [#/Vol] 0.0 10*3/uL 0.0-0.2 [facility] Basophils/100 WBC Auto (Bld) Ordered By: John Soto on 07-30-2023 Basophils/100 WBC (Bld) 0.7 % . [facility] Bilirubin.total [Mass/volume ] in Serum or PlasmaOrdered By: John Soto on 07-30-2023 Bilirubin [Mass/Vol] 0.6 mg/dL 0.3-1.0 [facility] Calcium [Mass/volume] in Ser um or PlasmaOrdered By: John Soto on 07-30-2023 Calcium [Mass/Vol] 9.6 mg/dL 8.6-10.3 [facility] Calprotectin [Mass/mass] in StoolOrdered By: John Soto on 07-30-2023 Calprotectin (Stl) [Mass/Mass] 27 ug/g 0-120 [facility] Comment on above: Concentration Interp retation Follow-Up< 5 - 50 ug/g Normal None>50 -120 ug/g Borderline Re-evaluate in 4-6 weeks >120 ug/g Abnormal Repeat as clinically indicatedPerformed at: [facility] [address] [id number] Director: Hernan Lozoya MD, Phone: [phone] Carbon dioxide, total [Moles /volume] in Serum or PlasmaOrdered By: John Soto on 07-30-2023 CO2 [Moles/Vol] 27.9 mmol/L 21.0-31.0 [facility] Chloride [Moles/volume] in S irma or PlasmaOrdered By: John Soto on 07-30-2023 Chloride [Moles/Vol] 104 mmol/L 98-107 [facility] Creatinine [Mass/volume] in Serum or PlasmaOrdered By: John Soto on 07-30-2023 Creatinine [Mass/Vol] 1.45 mg/dL 0.70-1.[address] [facility] Elastase.pancreatic [Mass/ma ss] in StoolOrdered By: John Soto on 07-30-2023 Elastase.pancreatic (Stl) [Mass/Mass] 101 >200 [facility] Comment on above: Result Units: ug Cristina st./g Severe Pancreatic Insufficiency: <100 Moderate Pancreatic Insufficiency: 100 - 200 Normal: >200Performed at: [facility] [address] [id number] Director: Hernan Lozoya MD, Phone: [phone] Eosinophils Auto (Bld) [#/Vo l]Ordered By: John Soto on 07-30-2023 Eosinophils (Bld) [#/Vol] 0.3 10*3/uL 0.0-0.45 [facility] Eosinophils/100 WBC Auto (Bl d)Ordered By: John Soto on 07-30-2023 Eosinophils/100 WBC (Bld) 4.7 % . [facility] Erythrocyte distribution wid th Auto (RBC) [Ratio]Ordered By: John Soto on 07-30-2023 Erythrocyte distribution width (RBC) [Ratio] 13.0 % 12.0-14.8 [facility] Globulin Calc (S) [Mass/Vol] Ordered By: John Soto on 07-30-2023 Globulin (S) [Mass/Vol] 2.2 g/dL [facility] Glucose [Mass/volume] in Ser um or PlasmaOrdered By: John Soto on 07-30-2023 Glucose [Mass/Vol] 93 mg/dL 70-100 [facility] Comment on above: ADA recommended refe rence rangeRandom Glucose Reference Range is dependent on time and content of last meal. Glucose of more than 200 mg/dL in a nonstressed, ambulatory subject supports the diagnosis of Diabetes Mellitus. Hematocrit Auto (Bld) [Volum e fraction]Ordered By: John Soto on 07-30-2023 Hematocrit (Bld) [Volume fraction] 48.4 % 38.8-50.0 [facility] Hemoglobin [Mass/volume] in BloodOrdered By: John Soto on 07-30-2023 Hemoglobin (Bld) [Mass/Vol] 16.7 g/dL 13.0-17.0 [facility] INR in Platelet poor plasma by Coagulation assayOrdered By: John Soto on 07-30-2023 INR Coag (PPP) [Relative time] 0.9 {INR} [facility] Comment on above: INR Therapeutic Rang [...] with mechanical heart valves: 3 - 4.5 Leukocytes [#/volume] correc herbert for nucleated erythrocytes in Blood by Automated counOrdered By: John Soto on 07-30-2023 WBC corrected for nucl RBC Auto (Bld) [#/Vol] 6.0 10*3/uL 4.1-10.5 [facility] Lymphocytes Auto (Bld) [#/Vo l]Ordered By: John Soto on 07-30-2023 Lymphocytes (Bld) [#/Vol] 1.0 10*3/uL 1.00-4.8 [facility] Lymphocytes/100 WBC Auto (Bl d)Ordered By: John Soto on 07-30-2023 Lymphocytes/100 WBC (Bld) 16.4 % . [facility] MCH Auto (RBC) [Entitic mass ]Ordered By: John Soto on 07-30-2023 MCH (RBC) [Entitic mass] 31.9 pg 27.5-35.2 [facility] MCHC Auto (RBC) [Mass/Vol]Or dered By: John Soto on 07-30-2023 MCHC (RBC) [Mass/Vol] 34.4 g/dL 32.5-35.[address] [facility] MCV Auto (RBC) [Entitic vol] Ordered By: John Soto on 07-30-2023 MCV (RBC) [Entitic vol] 92.8 fL 83.5-101 [facility] Monocytes Auto (Bld) [#/Vol] Ordered By: John Soto on 07-30-2023 Monocytes (Bld) [#/Vol] 0.6 10*3/uL 0.0-0.8 [facility] Monocytes/100 WBC Auto (Bld) Ordered By: John Soto on 07-30-2023 Monocytes/100 WBC (Bld) 9.9 % . [facility] Neutrophils Auto (Bld) [#/Vo l]Ordered By: John Soto on 07-30-2023 Neutrophils (Bld) [#/Vol] 4.1 10*3/uL 1.8-7.7 [facility] Neutrophils/100 WBC Auto (Bl d)Ordered By: John Soto on 07-30-2023 Neutrophils/100 WBC (Bld) 68.3 % . [facility] No Panel InformationOrdered By: John Soto on 07-30-2023 Estimated GFR (CKD-EPI) 53.811 mL/Min [facility] Creatinine Clearance (Chem N/A [facility] Nucleated erythrocytes [Pres ence] in Blood by Automated countOrdered By: John Soto on 07-30-2023 Nucleated RBC Auto Ql (Bld) 0.1 /100{WBC} 0-0.5 [facility] Platelet mean volume Auto (B ld) [Entitic vol]Ordered By: John Soto on 07-30-2023 Platelet mean volume (Bld) [Entitic vol] 9.3 fL 6.6-10.1 [facility] Platelets Auto (Bld) [#/Vol] Ordered By: John Soto on 07-30-2023 Platelets (Bld) [#/Vol] 169 10*3/uL 150-450 [facility] Potassium [Moles/volume] in Serum or PlasmaOrdered By: John Soto on 07-30-2023 Potassium [Moles/Vol] 4.4 mmol/L 3.5-5.[address] [facility] Protein [Mass/volume] in Ser um or PlasmaOrdered By: John Soto on 07-30-2023 Protein [Mass/Vol] 6.8 g/dL 6.4-8.9 [facility] Prothrombin time (PT)Ordered By: John Soto on 07-30-2023 PT Coag (PPP) [Time] 11.0 s 9.0-12.9 [facility] Comment on above: A hematocrit value g reater than 55% may lead to inaccurate results in coagulation testing. Patients having hematocrit values >55% require a special collection tube for coagulation studies. Please contact the laboratory at [phone] for redraw instructions. RBC Auto (Bld) [#/Vol]Ordere d By: John Soto on 07-30-2023 RBC (Bld) [#/Vol] 5.22 10*6/uL 3.90-5.60 [facility] Saccharomyces cerevisiae IgG serumOrdered By: John Soto on 07-30-2023 Felix's yeast IgG Qn (S) 25.1 Units 0.0-24.9 [facility] Comment on above: Negative <20.0 Equiv ocal 20.1 - 24.9 Positive >or= 25.0 Serum or plasma albumin/glob ulin mass ratioOrdered By: John Soto on 07-30-2023 Albumin/Globulin [Mass ratio] 2.1 {ratio} [facility] Serum or plasma anion gap de terminationOrdered By: John Soto on 07-30-2023 Anion gap [Moles/Vol] 12.5 mmol/L 6.0-15.0 [facility] Sodium [Moles/volume] in Ser um or PlasmaOrdered By: John Soto on 07-30-2023 Sodium [Moles/Vol] 140 mmol/L 136-145 [facility] Stool lactoferrin detectionO rdered By: John Soto on 07-30-2023 Lactoferrin Ql (Stl) [facility] Lactoferrin Ql (Stl) [facility] Thyrotropin [Units/volume] i n Serum or PlasmaOrdered By: John Soto on 07-30-2023 TSH Qn 3.04 m[IU]/L 0.45-5.33 [facility] Thyroxine (T4) free [Mass/vo lume] in Serum or PlasmaOrdered By: John Soto on 07-30-2023 Free T4 [Mass/Vol] 0.70 ng/dL 0.61-1.12 [facility] Urea nitrogen [Mass/volume] in Serum or PlasmaOrdered By: John Soto on 07-30-2023 Urea nitrogen [Mass/Vol] 26 mg/dL 7-25 [facility] WBC Auto (Bld) [#/Vol]Ordere d By: John Soto on 07-30-2023 WBC (Bld) [#/Vol] 6.0 10*3/uL 4.1-10.5 [facility] MRI Spine Lumbar w/ + w/o [...] Moderate bilateral neuroforaminal stenosis. Report Ordering Provider: JUSTYNA MARTINEZ FINAL REPORT Dictated: 05/29/2023 11:59 am Nahid Moore DO Signed (Electronic Signature): 05/29/2023 11:59 am Signed by: Nahid Moore DO Transcribed by: MARGAUX Technologist: MARLINE Technical Comments MultiHance Contrast amount in ml's: [address] [facility] CHEMISTRYOrdered By: SYSTEM SYSTEM on 05-28-2023 Creatinine [Mass/Vol] 1.5 mg/dL High 0.5 - 1.3 mg/dL [facility] Remisol GFR/1.73 sq M.predicted among non-blacks MDRD (S/P/Bld) [Vol rate/Area] 52 mL/min/1.73 m2 Low >=59mL/min /1.73 m2 [facility] Chem S Comment on above: Interpretive Data: C hronic kidney disease could be indicated at eGFR's of less than 60 mL/min/1.73m2. Kidney failure is indicated at less than 15 mL/min/1.73m2. Consent for Treatmenton 05-01 Consent for Treatment [id number]#1.00TIFF Normal [facility] Creatinineon 05-28-2023 Creatinine [Mass/Vol] 1.5 mg/dL High 0.5-1.3 [facility] Comment on above: Performed By: #### 1 [id number] #### [facility] [address] [place] [address] RAD - MRI Screening Formon 1 07-28-2022 RAD - MRI Screening Form [id number]#1.00TIFF Normal [facility] eGFRon 05-28-2023 GFR/1.73 sq M.predicted among non-blacks MDRD (S/P/Bld) [Vol rate/Area] 52 mL/min/1.73 m2 Low >=59 [facility] Comment on above: Order Comment: Order added by Discern Expert. Result Comment: Tour Leader dionne kidney disease could be indicated at eGFR's of less than 60 mL/min/1.73m2. Kidney failure is indicated at less than 15 mL/min/1.73m2. Performed By: #### 1 [id number] #### [facility] [address] [place] [address] Physician Orderon 05-27-2023 Physician Order [id number]#1.00TIFF Normal [facility] Physician Orderon 05-22-2023 Physician Order [id number]#1.00TIFF Normal [facility] Hemoglobin [Mass/volume] in BloodOrdered By: Rosey Dubose on 03-04-2023 Hemoglobin (Bld) [Mass/Vol] 16.3 g/dL 13.0-17.0 [facility] Prostate specific Ag [Mass/v olume] in Serum or PlasmaOrdered By: Rosey Dubose on 03-04-2023 Prostate specific Ag [Mass/Vol] 0.110 ng/mL 0.000-4.00 0 [facility] Testosterone [Mass/volume] i n Serum or PlasmaOrdered By: Rosey Dubose on 03-04-2023 Testosterone [Mass/Vol] 2.90 ng/mL 1.75-7.81 [facility] Thyrotropin [Units/volume] i n Serum or PlasmaOrdered By: Rafael Holbrook on 12-18-2022 TSH Qn 3.02 m[IU]/L 0.45-5.33 [facility] XR LSPINE W_OBLS AND FLEX_EX Ton [...] by: SE STILL Date: 2022-11-26 07:41 Normal [facility] Tobacco Screening.on 023 Adult depression screening assessment No [facility] [facility] [address] DO Work Phone: Tobacco use status [facility]PH[facility] b) No [facility] [facility] [address] DO Work Phone: Absolute reticulocyte countO rdered By: Jose Valdovinos on 10-03-2022 Reticulocytes (Bld) [#/Vol] 0.125 10*6/uL 0.024-0.08 4 [facility] Alanine aminotransferase [En zymatic activity/volume] in Serum or PlasmaOrdered By: Jose Valdovinos on 10-03-2022 ALT [Catalytic activity/Vol] 20 U/L 7-52 [facility] Albumin [Mass/volume] in Ser um or Plasma by Bromocresol green (BCG) dye binding methoOrdered By: Jose Valdovinos on 10-03-2022 Albumin BCG dye [Mass/Vol] 4.3 g/dL 3.5-5.7 [facility] Alkaline phosphatase [Enzyma tic activity/volume] in Serum or PlasmaOrdered By: Jose Valdovinos on 10-03-2022 ALP [Catalytic activity/Vol] 62 U/L 34-104 [facility] Aspartate aminotransferase [ Enzymatic activity/volume] in Serum or PlasmaOrdered By: Jose Valdovinos on 10-03-2022 AST [Catalytic activity/Vol] 15 U/L 13-39 [facility] Basophils Auto (Bld) [#/Vol] Ordered By: Jose Valdovinos on 10-03-2022 Basophils (Bld) [#/Vol] 0.0 10*3/uL 0.0-0.2 [facility] Basophils/100 WBC Auto (Bld) Ordered By: Jose Valdovinos on 10-03-2022 Basophils/100 WBC (Bld) 0.9 % . [facility] Bilirubin.direct [Mass/volum e] in Serum or PlasmaOrdered By: Jose Valdovinos on 10-03-2022 Bilirubin.direct [Mass/Vol] 0.10 mg/dL 0.03-0.18 [facility] Bilirubin.total [Mass/volume ] in Serum or PlasmaOrdered By: Jose Valdovinos on 10-03-2022 Bilirubin [Mass/Vol] 0.5 mg/dL 0.3-1.0 [facility] Calcium [Mass/volume] in Ser um or PlasmaOrdered By: Jose Valdovinos on 10-03-2022 Calcium [Mass/Vol] 9.1 mg/dL 8.6-10.3 [facility] Carbon dioxide, total [Moles /volume] in Serum or PlasmaOrdered By: Jose Valdovinos on 10-03-2022 CO2 [Moles/Vol] 29.9 mmol/L 21.0-31.0 [facility] Chloride [Moles/volume] in S irma or PlasmaOrdered By: Jose Valdovinos on 10-03-2022 Chloride [Moles/Vol] 100 mmol/L 98-107 [facility] Cholesterol [Mass/volume] in Serum or PlasmaOrdered By: Jose Valdovinos on 10-03-2022 Cholesterol [Mass/Vol] 127 mg/dL 140-200 [facility] Comment on above: Chol less than 200 m g/dl low riskChol 201-239 mg/dl borderline riskChol 240 mg/dl and greater high risk Cholesterol in LDL Calc [Mas s/Vol]Ordered By: Jose Valdovinos on 10-03-2022 Cholesterol in LDL [Mass/Vol] 62 mg/dL 0-100 [facility] Comment on above: LDL ATP III CLASSIFI CATIONLDL less than 100 mg/dL OptimalLDL 100-129 mg/dL Near or above optimalLDL 130-159 mg/dL Borderline highLDL 160-189 mg/dL HighLDL greater than 189 mg/dL Very high Cholesterol in VLDL Calc [Ma ss/Vol]Ordered By: Jose Valdovinos on 10-03-2022 Cholesterol in VLDL [Mass/Vol] 18 mg/dL [facility] Creatinine [Mass/volume] in Serum or PlasmaOrdered By: Jose Valdovinos on 10-03-2022 Creatinine [Mass/Vol] 1.55 mg/dL 0.70-1.[address] [facility] Eosinophils Auto (Bld) [#/Vo l]Ordered By: Jose Valdovinos on 10-03-2022 Eosinophils (Bld) [#/Vol] 0.2 10*3/uL 0.0-0.45 [facility] Eosinophils/100 WBC Auto (Bl d)Ordered By: Jose Valdovinos on 10-03-2022 Eosinophils/100 WBC (Bld) 2.8 % . [facility] Erythrocyte distribution wid th Auto (RBC) [Ratio]Ordered By: Jose Valdovinos on 10-03-2022 Erythrocyte distribution width (RBC) [Ratio] 16.2 % 12.0-14.8 [facility] Ferritin [Mass/volume] in Se rum or PlasmaOrdered By: Jose Valdovinos on 10-03-2022 Ferritin [Mass/Vol] 13.3 ng/mL 23.9-336.2 [facility] Folate [Mass/volume] in Seru m or PlasmaOrdered By: Jose Valdovinos on 10-03-2022 Folate [Mass/Vol] 41.0 ng/mL >5.9 [facility] Comment on above: Folate reference ran ge: >5.9 ng/mlThe WHO technical consultation on folate and vitamin [id number] has determined that folate concentrations lessthan 4 ng/ml are considered deficient. Globulin Calc (S) [Mass/Vol] Ordered By: Jose Valdovinos on 10-03-2022 Globulin (S) [Mass/Vol] 2.4 g/dL [facility] Glucose [Mass/volume] in Ser um or PlasmaOrdered By: Jose Valdovinos on 10-03-2022 Glucose [Mass/Vol] 91 mg/dL 70-100 [facility] Comment on above: ADA recommended refe rence rangeRandom Glucose Reference Range is dependent on time and content of last meal. Glucose of more than 200 mg/dL in a nonstressed, ambulatory subject supports the diagnosis of Diabetes Mellitus. Glucose mean value [Mass/vol ume] in Blood Estimated from glycated hemoglobinOrdered By: Jose Valdovinos on 10-03-2022 Average glucose Estimated from glycated hemoglobin (Bld) [Mass/Vol] 123 mg/dL [facility] Hematocrit Auto (Bld) [Volum e fraction]Ordered By: Jose Valdovinos on 10-03-2022 Hematocrit (Bld) [Volume fraction] 41.4 % 38.8-50.0 [facility] Hemoglobin A1c percentageOrd ered By: Jose Valdovinos on 10-03-2022 HbA1c (Bld) [Mass fraction] 5.9 % 4.3-5.6 [facility] Comment on above: Increased risk for d iabetes: 5.7 - 6.4diabetes: >6.4glycemic control for adults with diabetes: <7.0 Hemoglobin [Mass/volume] in BloodOrdered By: Jose Valdovinos on 10-03-2022 Hemoglobin (Bld) [Mass/Vol] 13.4 g/dL 13.0-17.0 [facility] Iron [Mass/volume] in Serum or PlasmaOrdered By: Jose Valdovinos on 10-03-2022 Iron [Mass/Vol] 55 ug/dL 50-212 [facility] Leukocytes [#/volume] correc herbert for nucleated erythrocytes in Blood by Automated counOrdered By: Jose Valdovinos on 10-03-2022 WBC corrected for nucl RBC Auto (Bld) [#/Vol] 5.7 10*3/uL 4.1-10.5 [facility] Lymphocytes Auto (Bld) [#/Vo l]Ordered By: Jose Valdovinos on 10-03-2022 Lymphocytes (Bld) [#/Vol] 1.2 10*3/uL 1.00-4.8 [facility] Lymphocytes/100 WBC Auto (Bl d)Ordered By: Jose Valdovinos on 10-03-2022 Lymphocytes/100 WBC (Bld) 21.4 % . [facility] MCH Auto (RBC) [Entitic mass ]Ordered By: Jose Valdovinos on 10-03-2022 MCH (RBC) [Entitic mass] 26.7 pg 27.5-35.2 [facility] MCHC Auto (RBC) [Mass/Vol]Or dered By: Jose Valdovinos on 10-03-2022 MCHC (RBC) [Mass/Vol] 32.5 g/dL 32.5-35.[address] [facility] MCV Auto (RBC) [Entitic vol] Ordered By: Jose Valdovinos on 10-03-2022 MCV (RBC) [Entitic vol] 82.1 fL 83.5-101 [facility] Monocytes Auto (Bld) [#/Vol] Ordered By: Jose Valdovinos on 10-03-2022 Monocytes (Bld) [#/Vol] 0.9 10*3/uL 0.0-0.8 [facility] Monocytes/100 WBC Auto (Bld) Ordered By: Jose Valdovinos on 10-03-2022 Monocytes/100 WBC (Bld) 15.4 % . [facility] Neutrophils Auto (Bld) [#/Vo l]Ordered By: Jose Valdovinos on 10-03-2022 Neutrophils (Bld) [#/Vol] 3.4 10*3/uL 1.8-7.7 [facility] Neutrophils/100 WBC Auto (Bl d)Ordered By: Jose Valdovinos on 10-03-2022 Neutrophils/100 WBC (Bld) 59.5 % . [facility] No Panel InformationOrdered By: Jose Valdovinos on 10-03-2022 Estimated GFR (CKD-EPI) 49.983 mL/Min [facility] Creatinine Clearance (Chem N/A [facility] Nucleated erythrocytes [Pres ence] in Blood by Automated countOrdered By: Jose Valdovinos on 10-03-2022 Nucleated RBC Auto Ql (Bld) 0.1 /100{WBC} 0-0.5 [facility] Platelet mean volume Auto (B ld) [Entitic vol]Ordered By: Jose Valdovinos on 10-03-2022 Platelet mean volume (Bld) [Entitic vol] 9.3 fL 6.6-10.1 [facility] Platelets Auto (Bld) [#/Vol] Ordered By: Jose Valdovinos on 10-03-2022 Platelets (Bld) [#/Vol] 196 10*3/uL 150-450 [facility] Potassium [Moles/volume] in Serum or PlasmaOrdered By: Jose Valdovinos on 10-03-2022 Potassium [Moles/Vol] 4.3 mmol/L 3.5-5.[address] [facility] Protein [Mass/volume] in Ser um or PlasmaOrdered By: Jose Valdovinos on 10-03-2022 Protein [Mass/Vol] 6.7 g/dL 6.4-8.9 [facility] RBC Auto (Bld) [#/Vol]Ordere d By: Jose Valdovinos on 10-03-2022 RBC (Bld) [#/Vol] 5.04 10*6/uL 3.90-5.60 [facility] Reticulocytes/100 RBC Auto ( Bld)Ordered By: Jose Valdovinos on 10-03-2022 Reticulocytes/100 RBC (Bld) 2.5 % 0.5-1.5 [facility] Serum or plasma albumin/glob ulin mass ratioOrdered By: Jose Valdovinos on 10-03-2022 Albumin/Globulin [Mass ratio] 1.8 {ratio} [facility] Serum or plasma anion gap de terminationOrdered By: Jose Valdovinos on 10-03-2022 Anion gap [Moles/Vol] 11.4 mmol/L 6.0-15.0 [facility] Serum or plasma high density lipoprotein (HDL) cholesterol measurementOrdered By: Jose Valdovinos on 10-03-2022 Cholesterol in HDL [Mass/Vol] 46 mg/dL 29-71 [facility] Comment on above: HDL CHOL ATP-III CLA SSIFICATION Cardiovascular RiskHDL > or equal to 60 mg/dL LOWHDL < 40 mg/dL HIGH Serum or plasma non-glucuron idated bilirubin measurement (mass/volume)Ordered By: Jose Valdovinos on 10-03-2022 Bilirubin.indirect [Mass/Vol] 0.4 mg/dL [facility] Serum or plasma total choles terol/high density lipoprotein (HDL) cholesterol mass ratOrdered By: Jose Valdovinos on 10-03-2022 Cholesterol.total/Chol esterol in HDL [Mass ratio] 2.8 {ratio} <5.0 [facility] Sodium [Moles/volume] in Ser um or PlasmaOrdered By: Jose Valdovinos on 10-03-2022 Sodium [Moles/Vol] 137 mmol/L 136-145 [facility] Triglyceride [Mass/volume] i n Serum or PlasmaOrdered By: Jose Valdovinos on 10-03-2022 Triglyceride [Mass/Vol] 93 mg/dL 0-149 [facility] Comment on above: TRIG ATP III CLASSIF ICATIONTRIG less than 150 mg/dL NormalTRIG 150-199 mg/dL Borderline highTRIG 200-500 mg/dL High TRIG greater than 500 mg/dL Very highStandard traceable to the Center for Disease Conrtrol and Prevention (CDC) test method. Urea nitrogen [Mass/volume] in Serum or PlasmaOrdered By: Jose Valdovinos on 10-03-2022 Urea nitrogen [Mass/Vol] 28 mg/dL 7-25 [facility] Vitamin B12 ser/plasOrdered By: Jose Valdovinos on 10-03-2022 Cobalamin (Vitamin B12) [Mass/Vol] 340 pg/mL 180-914 [facility] WBC Auto (Bld) [#/Vol]Ordere d By: Jose Valdovinos on 10-03-2022 WBC (Bld) [#/Vol] 5.7 10*3/uL 4.1-10.5 [facility] XR elbow LT min 3V*on 2022 XR elbow LT min 3V* [facility] [employer] Other XR elbow LT min 3V* [facility] [employer] Other XR elbow LT min 3V* [address] [place] [address] [employer] Other XR elbow LT min 3V* [place] [address] [facility] [employer] Other XR elbow LT min 3V* XRay Report [place] [email or web address] Other XR elbow LT min 3V* Signed [facility] [employer] Other XR elbow LT min 3V* Patient: Mary Jimenez MR#: [id number] [facility] [employer] Other XR elbow LT min 3V* : 1960 Acct:[id number] [email or web address] Other XR elbow LT min 3V* Age/Sex: 62 / M ADM Date: 09/17/22 [employer] Other XR elbow LT min 3V* [facility]: [facility]D [facility] [employer] Other XR elbow LT min 3V* Attending Dr: Jose vail DO [employer] Other XR elbow LT min 3V* Copies to: Jose Valdovinos, [employer] Other XR elbow LT min 3V* Ordering Provider: Bakari Valdovinos [employer] Other XR elbow LT min 3V* Date of Service: 09/17/22 [employer] Other XR elbow LT min 3V* XR/XR elbow LT min 3V*: Pain in left elbow [employer] Other XR elbow LT min 3V* 4 views of the lefte lbow plain film [employer] Other XR elbow LT min 3V* COMPARISON:None [employer] Other XR elbow LT min 3V* HISTORY:Left elbow p ain for 2 weeks [employer] Other XR elbow LT min 3V* ACUTE FINDINGS:None [employer] Other XR elbow LT min 3V* DEGENERATIVE CHANGE:Unremarkable [employer] Other XR elbow LT min 3V* SOFT TISSUE FINDINGS:Diffuse soft tissue length. Olecranon soft tissue swelling. [employer] Other XR elbow LT min 3V* JOINT EFFUSION:None [employer] Other XR elbow LT min 3V* POSTOP CHANGES:None [employer] Other XR elbow LT min 3V* BONE MINERALIZATION:Adequate [employer] Other XR elbow LT min 3V* X R/XR elbow LT min 3V* [employer] Other XR elbow LT min 3V* IMPRESSION: Diffuse and olecranon soft tissue swelling. [employer] Other XR elbow LT min 3V* Impression dictated by: Eagle Prince M.D.09/17/2022 1:24 PM [employer] Other XR elbow LT min 3V* Dictation Location: [place] [address] [employer] Other XR elbow LT min 3V* Transcribed By: PWS 09/17/22 1324 [employer] Other XR elbow LT min 3V* Dictated By: Miguel Angel Prince DO 09/17/22 1323 [employer] Other XR elbow LT min 3V* Signed By: [employer] Other XR elbow LT min 3V* 09/17/22 1324 No rt [email or web address] Other Activated partial thrombopla stin time (aPTT) in platelet poor plasma by coagulation aOrdered By: Alejandro Ruvalcaba on 09-03-2022 aPTT Coag (PPP) [Time] 40.4 s 25.1-36.5 [facility] Alanine aminotransferase [En zymatic activity/volume] in Serum or PlasmaOrdered By: Alejandro Ruvalcaba on 09-03-2022 ALT [Catalytic activity/Vol] 16 U/L 7-52 [facility] Albumin [Mass/volume] in Ser um or Plasma by Bromocresol green (BCG) dye binding methoOrdered By: Alejandro Ruvalcaba on 09-03-2022 Albumin BCG dye [Mass/Vol] 4.2 g/dL 3.5-5.7 [facility] Alkaline phosphatase [Enzyma tic activity/volume] in Serum or PlasmaOrdered By: Alejandro Ruvalcaba on 09-03-2022 ALP [Catalytic activity/Vol] 61 U/L 34-104 [facility] Aspartate aminotransferase [ Enzymatic activity/volume] in Serum or PlasmaOrdered By: Alejandro Ruvalcaba on 09-03-2022 AST [Catalytic activity/Vol] 13 U/L 13-39 [facility] Bacterial blood cultureOrder ed By: Alejandro Ruvalcaba on 09-03-2022 Bacteria identified Cx Nom (Bld) NO GROWTH 5 DAYS [facility] Basophils Auto (Bld) [#/Vol] Ordered By: Alejandro Ruvalcaba on 09-03-2022 Basophils (Bld) [#/Vol] 0.0 10*3/uL 0.0-0.2 [facility] Basophils/100 WBC Auto (Bld) Ordered By: Alejandro Ruvalcaba on 09-03-2022 Basophils/100 WBC (Bld) 0.7 % . [facility] Bilirubin Test strip Ql (U)O rdered By: Alejandro Ruvalcaba on 09-03-2022 Bilirubin Ql (U) Negative Negative [facility] Bilirubin.total [Mass/volume ] in Serum or PlasmaOrdered By: Alejandro Ruvalcaba on 09-03-2022 Bilirubin [Mass/Vol] 0.4 mg/dL 0.3-1.0 [facility] Calcium [Mass/volume] in Ser um or PlasmaOrdered By: Alejandro Ruvalcaba on 09-03-2022 Calcium [Mass/Vol] 9.0 mg/dL 8.6-10.3 [facility] Carbon dioxide, total [Moles /volume] in Serum or PlasmaOrdered By: Alejandro Ruvalcaba on 09-03-2022 CO2 [Moles/Vol] 29.9 mmol/L 21.0-31.0 [facility] Chloride [Moles/volume] in S irma or PlasmaOrdered By: Alejandro Ruvalcaba on 09-03-2022 Chloride [Moles/Vol] 100 mmol/L 98-107 [facility] Color Auto (U)Ordered By: Antonino Ruvalcaba on 09-03-2022 Color (U) Yellow Yellow [facility] Creatinine [Mass/volume] in Serum or PlasmaOrdered By: Alejandro Ruvalcaba on 09-03-2022 Creatinine [Mass/Vol] 1.42 mg/dL 0.70-1.[address] [facility] Eosinophils Auto (Bld) [#/Vo l]Ordered By: Alejandro Ruvalcaba on 09-03-2022 Eosinophils (Bld) [#/Vol] 0.2 10*3/uL 0.0-0.45 [facility] Eosinophils/100 WBC Auto (Bl d)Ordered By: Alejandro Ruvalcaba on 09-03-2022 Eosinophils/100 WBC (Bld) 3.2 % . [facility] Erythrocyte distribution wid th Auto (RBC) [Ratio]Ordered By: Alejandro Ruvalcaba on 09-03-2022 Erythrocyte distribution width (RBC) [Ratio] 16.6 % 12.0-14.8 [facility] Globulin Calc (S) [Mass/Vol] Ordered By: Alejandro Ruvalcaba on 09-03-2022 Globulin (S) [Mass/Vol] 2.5 g/dL [facility] Glucose [Mass/volume] in Ser um or PlasmaOrdered By: Alejandro Ruvalcaba on 09-03-2022 Glucose [Mass/Vol] 127 mg/dL 74-109 [facility] Comment on above: ADA recommended refe rence rangeRandom Glucose Reference Range is dependent on time and content of last meal. Glucose of more than 200 mg/dL in a nonstressed, ambulatory subject supports the diagnosis of Diabetes Mellitus. Hematocrit Auto (Bld) [Volum e fraction]Ordered By: Alejandro Ruvalcaba on 09-03-2022 Hematocrit (Bld) [Volume fraction] 37.0 % 38.8-50.0 [facility] Hemoglobin [Mass/volume] in BloodOrdered By: Alejandro Ruvalcaba on 09-03-2022 Hemoglobin (Bld) [Mass/Vol] 12.2 g/dL 13.0-17.0 [facility] Ketones Auto test strip (U) [Mass/Vol]Ordered By: Alejandro Ruvalcaba on 09-03-2022 Ketones (U) [Mass/Vol] Negative Negative [facility] - Chemistry and C hemistry - challengeOrdered By: Alejandro Ruvalcaba on 09-03-2022 GFR/1.73 sq M.predicted MDRD (S/P/Bld) [Vol rate/Area] 55.523 mL/min/{1.73_m2} [facility] - CoagulationOrde red By: Alejandro Ruvalcaba on 09-03-2022 PT Coag (PPP) [Time] 11.9 s 9.0-12.9 [facility] Leukocytes [#/volume] correc herbert for nucleated erythrocytes in Blood by Automated counOrdered By: Alejandro Ruvalcaba on 09-03-2022 WBC corrected for nucl RBC Auto (Bld) [#/Vol] 6.7 10*3/uL 4.1-10.5 [facility] Lymphocytes Auto (Bld) [#/Vo l]Ordered By: Alejandro Ruvalcaba on 09-03-2022 Lymphocytes (Bld) [#/Vol] 0.8 10*3/uL 1.00-4.8 [facility] Lymphocytes/100 WBC Auto (Bl d)Ordered By: Alejandro Ruvalcaba on 09-03-2022 Lymphocytes/100 WBC (Bld) 11.3 % . [facility] MCH Auto (RBC) [Entitic mass ]Ordered By: Alejandro Ruvalcaba on 09-03-2022 MCH (RBC) [Entitic mass] 26.9 pg 27.5-35.2 [facility] MCHC Auto (RBC) [Mass/Vol]Or dered By: Alejandro Ruvalcaba on 09-03-2022 MCHC (RBC) [Mass/Vol] 32.9 g/dL 32.5-35.[address] [facility] MCV Auto (RBC) [Entitic vol] Ordered By: Alejandro Ruvalcaba on 09-03-2022 MCV (RBC) [Entitic vol] 82.0 fL 83.5-101 [facility] Magnesium [Mass/volume] in S irma or PlasmaOrdered By: Alejandro Ruvalcaba on 09-03-2022 Magnesium [Mass/Vol] 2.0 mg/dL 1.9-2.7 [facility] Monocyte distribution width [Entitic volume] in Blood by AutomatedOrdered By: Alejandro Ruvalcaba on 09-03-2022 Monocyte distribution width Auto (Bld) [Entitic vol] 17.05 % 0.00-20.00 [facility] Monocytes Auto (Bld) [#/Vol] Ordered By: Alejandro Ruvalcaba on 09-03-2022 Monocytes (Bld) [#/Vol] 0.9 10*3/uL 0.0-0.8 [facility] Monocytes/100 WBC Auto (Bld) Ordered By: Alejandro Ruvalcaba on 09-03-2022 Monocytes/100 WBC (Bld) 12.9 % . [facility] Neutrophils Auto (Bld) [#/Vo l]Ordered By: Alejandro Ruvalcaba on 09-03-2022 Neutrophils (Bld) [#/Vol] 4.8 10*3/uL 1.8-7.7 [facility] Neutrophils/100 WBC Auto (Bl d)Ordered By: Alejandro Ruvalcaba on 09-03-2022 Neutrophils/100 WBC (Bld) 71.9 % . [facility] Nitrite Test strip Ql (U)Ord ered By: Alejandro Ruvalcaba on 09-03-2022 Nitrite Ql (U) Negative Negative [facility] No Panel InformationOrdered By: Alejandro Ruvalcaba on 09-03-2022 Pharmacy Creatinine Clearance (Chem 72.62 [facility] Nucleated erythrocytes [Pres ence] in Blood by Automated countOrdered By: Alejandro Ruvalcaba on 09-03-2022 Nucleated RBC Auto Ql (Bld) 0.1 /100{WBC} 0-0.5 [facility] Platelet mean volume Auto (B ld) [Entitic vol]Ordered By: Alejandro Ruvalcaba on 09-03-2022 Platelet mean volume (Bld) [Entitic vol] 9.2 fL 6.6-10.1 [facility] Platelet poor plasma interna tional normalized ratio (INR) by coagulation assay (relatOrdered By: Alejandro Ruvalcaba on 09-03-2022 INR Coag (PPP) [Relative time] 1.0 {INR} [facility] Comment on above: INR Therapeutic Rang [...] Platelets Auto (Bld) [#/Vol] Ordered By: Alejandro Ruvalcaba on 09-03-2022 Platelets (Bld) [#/Vol] 191 10*3/uL 150-450 [facility] Potassium [Moles/volume] in Serum or PlasmaOrdered By: Alejandro Ruvalcaba on 09-03-2022 Potassium [Moles/Vol] 4.2 mmol/L 3.5-5.[address] [facility] Protein Auto test strip (U) [Mass/Vol]Ordered By: Alejandro Ruvalcaba on 09-03-2022 Protein (U) [Mass/Vol] Negative Negative [facility] Protein [Mass/volume] in Ser um or PlasmaOrdered By: Alejandro Ruvalcaba on 09-03-2022 Protein [Mass/Vol] 6.7 g/dL 6.4-8.9 [facility] RBC Auto (Bld) [#/Vol]Ordere d By: Alejandro Ruvalcaba on 09-03-2022 RBC (Bld) [#/Vol] 4.51 10*6/uL 3.90-5.60 [facility] Serum or plasma albumin/glob ulin mass ratioOrdered By: Alejandro Ruvalcaba on 09-03-2022 Albumin/Globulin [Mass ratio] 1.7 {ratio} [facility] Serum or plasma anion gap de terminationOrdered By: Alejandro Ruvalcaba on 09-03-2022 Anion gap [Moles/Vol] 10.3 mmol/L 6.0-15.0 [facility] Sodium [Moles/volume] in Ser um or PlasmaOrdered By: Alejandro Ruvalcaba on 09-03-2022 Sodium [Moles/Vol] 136 mmol/L 136-145 [facility] Specific gravity Auto test s trip (U) [Rel density]Ordered By: Alejandro Ruvalcaba on 09-03-2022 Specific gravity (U) [Rel density] 1.010 1.001-1.03 0 [facility] Urea nitrogen [Mass/volume] in Serum or PlasmaOrdered By: Alejandro Ruvalcaba on 09-03-2022 Urea nitrogen [Mass/Vol] 23 mg/dL 7-25 [facility] Urine clarity by refractomet ry automatedOrdered By: Alejandro Ruvalcaba on 09-03-2022 Clarity Refractometry automated (U) Clear Clear [facility] Urine glucose measurement by automated test strip (mass/volume)Ordered By: Alejandro Ruvalcaba on 09-03-2022 Glucose Auto test strip (U) [Mass/Vol] Normal mg/dL Normal [facility] Urine hemoglobin detection b y automated test stripOrdered By: Alejandro Ruvalcaba on 09-03-2022 Hemoglobin Auto test strip Ql (U) Negative Negative [facility] Urine leukocyte esterase det ection by automated test stripOrdered By: Alejandro Ruvalcaba on 09-03-2022 Leukocyte esterase Auto test strip Ql (U) Negative Negative [facility] Urobilinogen Auto test strip (U) [Mass/Vol]Ordered By: Alejandro Ruvalcaba on 09-03-2022 Urobilinogen (U) [Mass/Vol] Normal mg/dL Normal [facility] WBC Auto (Bld) [#/Vol]Ordere d By: Alejandro Ruvalcaba on 09-03-2022 WBC (Bld) [#/Vol] 6.7 10*3/uL 4.1-10.5 [facility] pH Auto test strip (U)Ordere d By: Alejandro Ruvalcaba on 09-03-2022 pH (U) 6.5 [pH] 5.0-9.0 [facility] A1C HEMOGLOBINon 08-25-2022 HbA1c (Bld) [Mass fraction] 5.7 % [employer] Other HbA1c (Bld) [Mass fraction]o n 08-25-2022 A1C HEMOGLOBIN [employer] Other Office Visit (Cardiology)on 07-16-2022 Follow-up visit [...] 2 daimes a day Biotin Maximum Strength 26628 MCG Oral TabletTAKE 1 TABLET DAILY. Clopidogrel [...] TABLET BY MOUTH ONE TIME A DAY HYDROcodone-Acetaminophen 5-325 MG Oral TabletTAKE 1 TABLET EVERY [...] NonMedication Lat (more content not included)... Normal [employer] Tobacco Screening.on 023 Adult depression screening assessment No [facility] [address] DO Work Phone: Fall risk assessment b) One or more fall s in the last year [facility] 250 DO Work Phone: Tobacco use status [facility]PH[facility] b) No [facility] 250 DO Work Phone: Anisocytosis LM Ql (Bld)Orde red By: Christine Mitchell on 06-12-2022 Anisocytosis Ql (Bld) Moderate [facility] Basophils Auto (Bld) [#/Vol] Ordered By: Christine Mitchell on 06-12-2022 Basophils (Bld) [#/Vol] 0.1 10*3/uL 0.0-0.2 [facility] Basophils/100 WBC Auto (Bld) Ordered By: Christine Mitchell on 06-12-2022 Basophils/100 WBC (Bld) 1.1 % . [facility] C reactive protein [Mass/vol ume] in Serum or PlasmaOrdered By: Christine Mitchell on 06-12-2022 CRP [Mass/Vol] 1.0 mg/dL 0.0-1.0 [facility] COVID-19 SOFIAOrdered By: Lobito Zheng on 06-12-2022 SARS-CoV+SARS-CoV-2 (COVID-19) Ag IA.rapid Ql (Resp) Negative Negative [facility] Comment on above: This is a duplicate Lizzy SARS Antigen (BLAKE) result to be used for statistical tracking purpose only. Eosinophils Auto (Bld) [#/Vo l]Ordered By: Christine Mitchell on 06-12-2022 Eosinophils (Bld) [#/Vol] 0.5 10*3/uL 0.0-0.45 [facility] Eosinophils/100 WBC Auto (Bl d)Ordered By: Christine Mitchell on 06-12-2022 Eosinophils/100 WBC (Bld) 9.0 % . [facility] Erythrocyte distribution wid th Auto (RBC) [Ratio]Ordered By: Christine Mitchell on 06-12-2022 Erythrocyte distribution width (RBC) [Ratio] 18.5 % 12.0-14.8 [facility] Erythrocyte sedimentation ra te by Photometric methodOrdered By: Christine Mitchell on 06-12-2022 ESR Photometric method (Bld) [Velocity] 11 mm/hr 0-19 [facility] Hematocrit Auto (Bld) [Volum e fraction]Ordered By: Chrisitne Mitchell on 06-12-2022 Hematocrit (Bld) [Volume fraction] 38.9 % 38.8-50.0 [facility] Hemoglobin [Mass/volume] in BloodOrdered By: Christine Mitchell on 06-12-2022 Hemoglobin (Bld) [Mass/Vol] 12.3 g/dL 13.0-17.0 [facility] Hypochromia LM Ql (Bld)Order ed By: Christine Mitchell on 06-12-2022 Hypochromia Ql (Bld) Slight [facility] Leukocytes [#/volume] correc herbert for nucleated erythrocytes in Blood by Automated counOrdered By: Christine Mitchell on 06-12-2022 WBC corrected for nucl RBC Auto (Bld) [#/Vol] 5.0 10*3/uL 4.1-10.5 [facility] Lymphocytes Auto (Bld) [#/Vo l]Ordered By: Christine Mitchell on 06-12-2022 Lymphocytes (Bld) [#/Vol] 1.0 10*3/uL 1.00-4.8 [facility] Lymphocytes/100 WBC Auto (Bl d)Ordered By: Christine Mitchell on 06-12-2022 Lymphocytes/100 WBC (Bld) 19.8 % . [facility] MCH Auto (RBC) [Entitic mass ]Ordered By: Christine Mitchell on 06-12-2022 MCH (RBC) [Entitic mass] 24.9 pg 27.5-35.2 [facility] MCHC Auto (RBC) [Mass/Vol]Or dered By: Christine Mitchell on 06-12-2022 MCHC (RBC) [Mass/Vol] 31.6 g/dL 32.5-35.[address] [facility] MCV Auto (RBC) [Entitic vol] Ordered By: Christine Mitchell on 06-12-2022 MCV (RBC) [Entitic vol] 78.8 fL 83.5-101 [facility] Microcytes LM Ql (Bld)Ordere d By: Christine Mitchell on 06-12-2022 Microcytes Ql (Bld) Moderate [facility] Monocytes Auto (Bld) [#/Vol] Ordered By: Christine Mitchell on 06-12-2022 Monocytes (Bld) [#/Vol] 0.7 10*3/uL 0.0-0.8 [facility] Monocytes/100 WBC Auto (Bld) Ordered By: Christine Mitchell on 06-12-2022 Monocytes/100 WBC (Bld) 13.7 % . [facility] Neutrophils Auto (Bld) [#/Vo l]Ordered By: Christine Mitchell on 06-12-2022 Neutrophils (Bld) [#/Vol] 2.8 10*3/uL 1.8-7.7 [facility] Neutrophils/100 WBC Auto (Bl d)Ordered By: Christine Mitchell on 06-12-2022 Neutrophils/100 WBC (Bld) 56.4 % . [facility] No Panel InformationOrdered By: Rafael Zheng on 06-12-2022 SARS Antigen (LFIA) [facility] SARS Antigen (LFIA) [facility] Nucleated erythrocytes [Pres ence] in Blood by Automated countOrdered By: Christine Mitchell on 06-12-2022 Nucleated RBC Auto Ql (Bld) 0.1 /100{WBC} 0-0.5 [facility] Platelet adequacy [Presence] in Blood by Light microscopyOrdered By: Christine Mitchell on 06-12-2022 Platelets LM Ql (Bld) Normal Normal [facility] Platelet mean volume Auto (B ld) [Entitic vol]Ordered By: Christine Mitchell on 06-12-2022 Platelet mean volume (Bld) [Entitic vol] 9.3 fL 6.6-10.1 [facility] Platelet morphology finding [Identifier] in BloodOrdered By: Christine Mitchell on 06-12-2022 Platelet morphology finding Nom (Bld) N/A [facility] Platelets Auto (Bld) [#/Vol] Ordered By: Christine Mitchell on 06-12-2022 Platelets (Bld) [#/Vol] 213 10*3/uL 150-450 [facility] Platelets Large [Presence] i n Blood by Light microscopyOrdered By: Christine Mitchell on 06-12-2022 Platelets Large LM Ql (Bld) Slight [facility] Polychromasia [Presence] in Blood by Light microscopyOrdered By: Christine Mitchell on 06-12-2022 Polychromasia LM Ql (Bld) Slight [facility] RBC Auto (Bld) [#/Vol]Ordere d By: Christine Mitchell on 06-12-2022 RBC (Bld) [#/Vol] 4.94 10*6/uL 3.90-5.60 [facility] RBC morphologyOrdered By: Andria Mitchell on 06-12-2022 RBC morphology finding Nom (Bld) N/A [facility] WBC Auto (Bld) [#/Vol]Ordere d By: Christine Mitchell on 06-12-2022 WBC (Bld) [#/Vol] 5.0 10*3/uL 4.1-10.5 [facility] Basophils Auto (Bld) [#/Vol] Ordered By: Rafael Zheng on 06-02-2022 Basophils (Bld) [#/Vol] 0.1 10*3/uL 0.0-0.2 [facility] Basophils/100 WBC Auto (Bld) Ordered By: Rafael Zheng on 06-02-2022 Basophils/100 WBC (Bld) 1.2 % . [facility] Creatinine and Glomerular fi ltration rate.predicted panel (S/P/Bld)Ordered By: Rafael Zheng on 06-02-2022 Creatinine [Mass/Vol] 1.62 mg/dL 0.64-1.[address] [facility] Eosinophils Auto (Bld) [#/Vo l]Ordered By: Rafael Zheng on 06-02-2022 Eosinophils (Bld) [#/Vol] 0.3 10*3/uL 0.0-0.45 [facility] Eosinophils/100 WBC Auto (Bl d)Ordered By: Rafael Zheng on 06-02-2022 Eosinophils/100 WBC (Bld) 6.9 % . [facility] Erythrocyte distribution wid th Auto (RBC) [Ratio]Ordered By: Rafael Zheng on 06-02-2022 Erythrocyte distribution width (RBC) [Ratio] 18.3 % 12.0-14.8 [facility] Estimated glomerular filtrat ion rate (GFR) non- AmericanOrdered By: Rafael Zheng on 06-02-2022 GFR/1.73 sq M.predicted among non-blacks MDRD (S/P/Bld) [Vol rate/Area] 43 mL/Min [facility] Hematocrit Auto (Bld) [Volum e fraction]Ordered By: Rafael Zheng on 06-02-2022 Hematocrit (Bld) [Volume fraction] 39.3 % 38.8-50.0 [facility] Hemoglobin [Mass/volume] in BloodOrdered By: Rafael Zheng on 06-02-2022 Hemoglobin (Bld) [Mass/Vol] 12.4 g/dL 13.0-17.0 [facility] Leukocytes [#/volume] correc herbert for nucleated erythrocytes in Blood by Automated counOrdered By: Rafael Zheng on 06-02-2022 WBC corrected for nucl RBC Auto (Bld) [#/Vol] 5.1 10*3/uL 4.1-10.5 [facility] Lymphocytes Auto (Bld) [#/Vo l]Ordered By: Rafael Zheng on 06-02-2022 Lymphocytes (Bld) [#/Vol] 0.9 10*3/uL 1.00-4.8 [facility] Lymphocytes/100 WBC Auto (Bl d)Ordered By: Rafael Zheng on 06-02-2022 Lymphocytes/100 WBC (Bld) 18.5 % . [facility] MCH Auto (RBC) [Entitic mass ]Ordered By: Rafale Zheng on 06-02-2022 MCH (RBC) [Entitic mass] 24.2 pg 27.5-35.2 [facility] MCHC Auto (RBC) [Mass/Vol]Or dered By: Rafael Zheng on 06-02-2022 MCHC (RBC) [Mass/Vol] 31.6 g/dL 32.5-35.[address] [facility] MCV Auto (RBC) [Entitic vol] Ordered By: Rafael Zheng on 06-02-2022 MCV (RBC) [Entitic vol] 76.7 fL 83.5-101 [facility] Monocytes Auto (Bld) [#/Vol] Ordered By: Rafael Zheng on 06-02-2022 Monocytes (Bld) [#/Vol] 0.5 10*3/uL 0.0-0.8 [facility] Monocytes/100 WBC Auto (Bld) Ordered By: Rafael Zheng on 06-02-2022 Monocytes/100 WBC (Bld) 9.6 % . [facility] Neutrophils Auto (Bld) [#/Vo l]Ordered By: Rafael Zheng on 06-02-2022 Neutrophils (Bld) [#/Vol] 3.2 10*3/uL 1.8-7.7 [facility] Neutrophils/100 WBC Auto (Bl d)Ordered By: Rafael Zheng on 06-02-2022 Neutrophils/100 WBC (Bld) 63.8 % . [facility] No Panel InformationOrdered By: Rafael Zheng on 06-02-2022 Estimated GFR () 53 mL/Min [facility] Comment on above: GFR estimated refere nce range: According to KDOQI guidelines, <60 ml/min/1.73m2 is sufficient to diagnose a patient with chronic kidney disease. Pharmacy Creatinine Clearance (Chem N/A [facility] Nucleated erythrocytes [Pres ence] in Blood by Automated countOrdered By: Rafael Zheng on 06-02-2022 Nucleated RBC Auto Ql (Bld) 0.1 /100{WBC} 0-0.5 [facility] Platelet mean volume Auto (B ld) [Entitic vol]Ordered By: Rafael Zheng on 06-02-2022 Platelet mean volume (Bld) [Entitic vol] 8.7 fL 6.6-10.1 [facility] Platelets Auto (Bld) [#/Vol] Ordered By: Rafael Zheng on 06-02-2022 Platelets (Bld) [#/Vol] 199 10*3/uL 150-450 [facility] RBC Auto (Bld) [#/Vol]Ordere d By: Rafael Zheng on 06-02-2022 RBC (Bld) [#/Vol] 5.13 10*6/uL 3.90-5.60 [facility] Serum or plasma anion gap de terminationOrdered By: Rafael Zheng on 06-02-2022 Anion gap [Moles/Vol] 15.3 mmol/L 6.0-15.0 [facility] Serum or plasma calcium paula urement (mass/volume)Ordered By: Rafael Zheng on 06-02-2022 Calcium [Mass/Vol] 9.1 mg/dL 8.2-10.2 [facility] Serum or plasma chloride miriam surement (moles/volume)Ordered By: Rafael Zheng on 06-02-2022 Chloride [Moles/Vol] 99 mmol/L 95-114 [facility] Serum or plasma glucose paula urement (mass/volume)Ordered By: Rafael Zheng on 06-02-2022 Glucose [Mass/Vol] 107 mg/dL 70-100 [facility] Comment on above: ADA recommended refe rence rangeRandom Glucose Reference Range is dependent on time and content of last meal. Glucose of more than 200 mg/dL in a nonstressed, ambulatory subject supports the diagnosis of Diabetes Mellitus. Serum or plasma potassium me asurement (moles/volume)Ordered By: Rafael Zheng on 06-02-2022 Potassium [Moles/Vol] 4.5 mmol/L 3.5-5.[address] [facility] Serum or plasma sodium measu rement (moles/volume)Ordered By: Rafael Zheng on 06-02-2022 Sodium [Moles/Vol] 134 mmol/L 136-146 [facility] Serum or plasma total carbon dioxide measurement (moles/volume)Ordered By: Rafael Zheng on 06-02-2022 CO2 [Moles/Vol] 24.2 mmol/L 22.0-30.0 [facility] Serum or plasma urea nitroge n measurement (mass/volume)Ordered By: Rafael Zheng on 06-02-2022 Urea nitrogen [Mass/Vol] 27 mg/dL 9-23 [facility] WBC Auto (Bld) [#/Vol]Ordere d By: Rafael Zheng on 06-02-2022 WBC (Bld) [#/Vol] 5.1 10*3/uL 4.1-10.5 [facility] CHEMISTRYOrdered By: SYSTEM SYSTEM on 05-28-2022 Creatinine [Mass/Vol] 1.3 mg/dL Normal 0.5 - 1.3 mg/dL [facility] Remisol GFR/1.73 sq M.predicted among blacks MDRD (S/P/Bld) [Vol rate/Area] mL/min/1.73 m2 Normal >=59mL/min /1.73 m2 [facility] Chem S GFR/1.73 sq M.predicted among non-blacks MDRD (S/P/Bld) [Vol rate/Area] 56 mL/min/1.73 m2 Low >=59mL/min /1.73 m2 [facility] Chem S CHEMISTRYOrdered By: SYSTEM SYSTEM on 05-27-2022 CRP [Mass/Vol] 0.7 mg/dL Normal <=1.9mg/dL [facility] Remis ol HEMATOLOGYOrdered By: Ely Piedra on 05-27-2022 Anisocytosis Ql (Bld) Present (05/27/22 10:37 AM) Normal [facility] HemeManSS Erythrocyte distribution width (RBC) [Ratio] 18.4 % High 10.9 - 14.2 % [facility] Hematocrit (Bld) [Volume fraction] 38.6 % Normal 37.7 - 49.0 % [facility] Hemoglobin (Bld) [Mass/Vol] 12.5 g/dL Low 13.5 - 17.5 gm/dL [facility] HemeAutoSS Hypochromia Auto Ql (Bld) Present (05/27/22 10:37 AM) Normal [facility]eMan[facility] MCH (RBC) [Entitic mass] 24.3 pg Low 27.0 - 34.0 pg [facility] MCHC (RBC) [Mass/Vol] 32.3 g/dL Normal 31.4 - 36.0 gm/dL [facility] MCV (RBC) [Entitic vol] 75.2 fL Low 80.0 - 100.0 fL [facility] HemeAutoSS Microcytes Ql (Bld) Present (05/27/22 10:37 AM) Normal [facility]eManSS Morphology Williams (Bld) [Interp] See Morphology (05/27/22 10:37 AM) Normal [facility]eMan[facility] Platelet mean volume (Bld) [Entitic vol] 8.9 fL Normal 6.4 - 10.8 fL [facility] Platelets (Bld) [#/Vol] 219.0 E9/L Normal 150.0 - 500.0 E9/L [facility] HemeAuto[facility] Polychromasia LM Ql (Bld) Present (05/27/22 10:37 AM) Normal [facility] HemeManSS RBC (Bld) [#/Vol] 5.1 E12/L Normal [...] 8.4 % Normal 4.0 - 14.0 % [facility] Monocytes/Leukocytes Auto (Bld) [Pure # fraction] 0.7 E9/L Normal 0.2 - 1.0 E9/L [facility]eAuto[facility] Neutrophils/100 WBC (Bld) 69.3 % Normal 36.0 - 75.0 % [facility]eAutoSS Neutrophils/Leukocytes Auto (Bld) [Pure # fraction] 5.7 E9/L Normal 2.0 - 7.5 E9/L [facility] HemeAutoSS Reference Laboratory Testing Ordered By: Yadi Bender on 05-27-2022 Test Code 887613 Invalid Interpretation Code [facility] SendOutsSS Test Name [place] 6 Invalid Interpretation Code [facility] SendOutsSS Basophils Auto (Bld) [#/Vol] Ordered By: Cathy Zavala on 05-12-2022 Basophils (Bld) [#/Vol] 0.0 10*3/uL 0.0-0.2 [facility] Basophils/100 WBC Auto (Bld) Ordered By: Cathy Zavala on 05-12-2022 Basophils/100 WBC (Bld) 0.4 % . [facility] Eosinophils Auto (Bld) [#/Vo l]Ordered By: Cathy Zavala on 05-12-2022 Eosinophils (Bld) [#/Vol] 0.5 10*3/uL 0.0-0.45 [facility] Eosinophils/100 WBC Auto (Bl d)Ordered By: Cathy Zavala on 05-12-2022 Eosinophils/100 WBC (Bld) 7.4 % . [facility] Erythrocyte distribution wid th Auto (RBC) [Ratio]Ordered By: Cathy Zavala on 05-12-2022 Erythrocyte distribution width (RBC) [Ratio] 18.4 % 12.0-14.8 [facility] Hematocrit Auto (Bld) [Volum e fraction]Ordered By: Cathy Zavala on 05-12-2022 Hematocrit (Bld) [Volume fraction] 39.8 % 38.8-50.0 [facility] Hemoglobin [Mass/volume] in BloodOrdered By: Cathy Zavala on 05-12-2022 Hemoglobin (Bld) [Mass/Vol] 12.4 g/dL 13.0-17.0 [facility] Laboratory - Hematology and Cell countsOrdered By: Cathy Zavala on 05-12-2022 Nucleated RBC/100 WBC (Bld) [Ratio] 0.1 % 0-0.5 [facility] Leukocytes [#/volume] in Blo od by Automated countOrdered By: Cathy Zavala on 05-12-2022 WBC (Bld) [#/Vol] 7.1 10*3/uL 4.5-11.0 [facility] Lymphocytes Auto (Bld) [#/Vo l]Ordered By: Cathy Zavala on 05-12-2022 Lymphocytes (Bld) [#/Vol] 1.3 10*3/uL 1.00-4.8 [facility] Lymphocytes/100 WBC Auto (Bl d)Ordered By: Cathy Zavala on 05-12-2022 Lymphocytes/100 WBC (Bld) 18.7 % . [facility] MCH Auto (RBC) [Entitic mass ]Ordered By: Cathy Zavala on 05-12-2022 MCH (RBC) [Entitic mass] 24.1 pg 27.5-35.2 [facility] MCHC Auto (RBC) [Mass/Vol]Or dered By: Cathy Zavala on 05-12-2022 MCHC (RBC) [Mass/Vol] 31.3 g/dL 32.5-35.[address] [facility] MCV Auto (RBC) [Entitic vol] Ordered By: Cathy Zavala on 05-12-2022 MCV (RBC) [Entitic vol] 77.2 fL 83.5-101 [facility] Monocytes Auto (Bld) [#/Vol] Ordered By: Cathy Zavala on 05-12-2022 Monocytes (Bld) [#/Vol] 0.8 10*3/uL 0.0-0.8 [facility] Monocytes/100 WBC Auto (Bld) Ordered By: Cathy Zavala on 05-12-2022 Monocytes/100 WBC (Bld) 10.6 % . [facility] Neutrophils Auto (Bld) [#/Vo l]Ordered By: Cathy Zavala on 05-12-2022 Neutrophils (Bld) [#/Vol] 4.4 10*3/uL 1.8-7.7 [facility] Neutrophils/100 WBC Auto (Bl d)Ordered By: Cathy Zavala on 05-12-2022 Neutrophils/100 WBC (Bld) 62.9 % . [facility] Platelet mean volume Auto (B ld) [Entitic vol]Ordered By: Cathy Zavala on 05-12-2022 Platelet mean volume (Bld) [Entitic vol] 9.4 fL 6.6-10.1 [facility] Platelets Auto (Bld) [#/Vol] Ordered By: Cathy Zavala on 05-12-2022 Platelets (Bld) [#/Vol] 207 10*3/uL 150-450 [facility] RBC Auto (Bld) [#/Vol]Ordere d By: Cathy Zavala on 05-12-2022 RBC (Bld) [#/Vol] 5.15 10*6/uL 3.90-5.60 [facility] Cholesterol [Mass/volume] in Serum or PlasmaOrdered By: Cathy Zavala on 05-04-2022 Cholesterol [Mass/Vol] 148 mg/dL 140-200 [facility] Comment on above: Chol less than 200 m g/dl low riskChol 201-239 mg/dl borderline riskChol 240 mg/dl and greater high risk Cholesterol in LDL Calc [Mas s/Vol]Ordered By: Cathy Zavala on 05-04-2022 Cholesterol in LDL [Mass/Vol] 78 mg/dL 0-100 [facility] Comment on above: LDL ATP III CLASSIFI CATIONLDL less than 100 mg/dL OptimalLDL 100-129 mg/dL Near or above optimalLDL 130-159 mg/dL Borderline highLDL 160-189 mg/dL HighLDL greater than 189 mg/dL Very high Cholesterol in VLDL Calc [Ma ss/Vol]Ordered By: Cathy Zavala on 05-04-2022 Cholesterol in VLDL [Mass/Vol] 29 mg/dL [facility] Creatinine and Glomerular fi ltration rate.predicted panel (S/P/Bld)Ordered By: Cathy Zavala on 05-04-2022 Creatinine [Mass/Vol] 1.26 mg/dL 0.64-1.[address] [facility] Estimated glomerular filtrat ion rate (GFR) non- AmericanOrdered By: Cathy Zavala on 05-04-2022 GFR/1.73 sq M.predicted among non-blacks MDRD (S/P/Bld) [Vol rate/Area] 58 mL/Min [facility] Glucose mean value [Mass/vol ume] in Blood Estimated from glycated hemoglobinOrdered By: Cathy Zavala on 05-04-2022 Average glucose Estimated from glycated hemoglobin (Bld) [Mass/Vol] 128 mg/dL [facility] Hemoglobin A1c percentageOrd ered By: Cathy Zavala on 05-04-2022 HbA1c (Bld) [Mass fraction] 6.1 % 4.3-5.6 [facility] Comment on above: Increased risk for d iabetes: 5.7 - 6.4diabetes: >6.4glycemic control for adults with diabetes: <7.0 No Panel InformationOrdered By: Cathy Zavala on 05-04-2022 Estimated GFR () > 60 mL/Min [facility] Comment on above: GFR estimated refere nce range: According to KDOQI guidelines, <60 ml/min/1.73m2 is sufficient to diagnose a patient with chronic kidney disease. Pharmacy Creatinine Clearance (Chem 81.70 [facility] Serum or plasma anion gap de terminationOrdered By: Cathy Zavala on 05-04-2022 Anion gap [Moles/Vol] 13.9 mmol/L 6.0-15.0 [facility] Serum or plasma calcium paula urement (mass/volume)Ordered By: Cathy Zavala on 05-04-2022 Calcium [Mass/Vol] 8.8 mg/dL 8.2-10.2 [facility] Serum or plasma chloride miriam surement (moles/volume)Ordered By: Cathy Zavala on 05-04-2022 Chloride [Moles/Vol] 101 mmol/L 95-114 [facility] Serum or plasma glucose paula urement (mass/volume)Ordered By: Cathy Zavala on 05-04-2022 Glucose [Mass/Vol] 92 mg/dL 70-100 [facility] Comment on above: ADA recommended refe rence rangeRandom Glucose Reference Range is dependent on time and content of last meal. Glucose of more than 200 mg/dL in a nonstressed, ambulatory subject supports the diagnosis of Diabetes Mellitus. Serum or plasma high density lipoprotein (HDL) cholesterol measurementOrdered By: Cathy Zavala on 05-04-2022 Cholesterol in HDL [Mass/Vol] 40 mg/dL 29-71 [facility] Comment on above: HDL CHOL ATP-III CLA SSIFICATION Cardiovascular RiskHDL > or equal to 60 mg/dL LOWHDL < 40 mg/dL HIGH Serum or plasma potassium me asurement (moles/volume)Ordered By: Cathy Zavala on 05-04-2022 Potassium [Moles/Vol] 4.3 mmol/L 3.5-5.[address] [facility] Serum or plasma sodium measu rement (moles/volume)Ordered By: Cathy Zavala on 05-04-2022 Sodium [Moles/Vol] 140 mmol/L 136-146 [facility] Serum or plasma total carbon dioxide measurement (moles/volume)Ordered By: Cathy Zavala on 05-04-2022 CO2 [Moles/Vol] 29.4 mmol/L 22.0-30.0 [facility] Serum or plasma total choles terol/high density lipoprotein (HDL) cholesterol mass ratOrdered By: Cathy Zavala on 05-04-2022 Cholesterol.total/Chol esterol in HDL [Mass ratio] 3.7 {ratio} <5.0 [facility] Serum or plasma urea nitroge n measurement (mass/volume)Ordered By: Cathy Zavala on 05-04-2022 Urea nitrogen [Mass/Vol] 16 mg/dL 9-23 [facility] Triglyceride [Mass/volume] i n Serum or PlasmaOrdered By: Cathy Zavala on 05-04-2022 Triglyceride [Mass/Vol] 149 mg/dL 35-149 [facility] Comment on above: TRIG ATP III CLASSIF ICATIONTRIG less than 150 mg/dL NormalTRIG 150-199 mg/dL Borderline highTRIG 200-500 mg/dL High TRIG greater than 500 mg/dL Very highStandard traceable to the Center for Disease Conrtrol and Prevention (CDC) test method. Automated erythrocytes count in urine sediment (number/area)Ordered By: Amarilis Jameson on 05-03-2022 RBC Auto (Urine sed) [#/Area] None seen [HPF] 0-4 [facility] Automated leukocytes count i n urine sediment (number/area)Ordered By: Amarilis Jameson on 05-03-2022 WBC Auto (Urine sed) [#/Area] 0-1 [HPF] 0-4 [facility] Basophils Auto (Bld) [#/Vol] Ordered By: Amarilis Jameson on 05-03-2022 Basophils (Bld) [#/Vol] 0.1 10*3/uL 0.0-0.2 [facility] Basophils/100 WBC Auto (Bld) Ordered By: Amarilis Jameson on 05-03-2022 Basophils/100 WBC (Bld) 1.1 % . [facility] Bilirubin Test strip Ql (U)O rdered By: Amarilis Jameson on 05-03-2022 Bilirubin Ql (U) Negative Negative [facility] COVID-19 Positive/NegativeOr dered By: Amarilis Jameson on 05-03-2022 SARS-CoV-2 (COVID-19) N gene LATOYA+probe Ql (Resp) Negative Negative [facility] Comment on above: Testing for SARS-CoV -2 by RT-PCRThis test was developed and its performance characteristics determined by [employer] ([place]) and validated at the [facility]. This test has not been FDA [...] (COVID-19) Ag IA.rapid Ql (Resp) Negative Negative [facility] Comment on above: This is a duplicate Lizzy SARS Antigen (BLAKE) result to be used for statistical tracking purpose only. Color Auto (U)Ordered By: Miguel Angel Jameson on 05-03-2022 Color (U) Yellow Yellow [facility] Creatinine (Bld) [Mass/Vol]O rdered By: Amarilis Jameson on 05-03-2022 Creatinine [Mass/Vol] 1.7 mg/dL 0.6-1.[address] [facility] Comment on above: ER/ESD physician is notified/shown all ISTAT results.Critical values may be confirmed by laboratory testing ifdeemed necessary by ER attending doctor. Creatinine and Glomerular fi ltration rate.predicted panel (S/P/Bld)Ordered By: Amarilis Jameson on 05-03-2022 Creatinine [Mass/Vol] 1.59 mg/dL 0.64-1.[address] [facility] Eosinophils Auto (Bld) [#/Vo l]Ordered By: Amarilis Jameson on 05-03-2022 Eosinophils (Bld) [#/Vol] 0.3 10*3/uL 0.0-0.45 [facility] Eosinophils/100 WBC Auto (Bl d)Ordered By: Amarilis Jameson on 05-03-2022 Eosinophils/100 WBC (Bld) 4.5 % . [facility] Erythrocyte distribution wid th Auto (RBC) [Ratio]Ordered By: Amarilis Jameson on 05-03-2022 Erythrocyte distribution width (RBC) [Ratio] 18.0 % 12.0-14.8 [facility] Estimated glomerular filtrat ion rate (GFR) non- AmericanOrdered By: Amarilis Jameson on 05-03-2022 GFR/1.73 sq M.predicted among non-blacks MDRD (S/P/Bld) [Vol rate/Area] 44 mL/Min [facility] Glucose Glucometer (BldC) [M ass/Vol]Ordered By: Amarilis Jameson on 05-03-2022 Glucose [Mass/Vol] 83 mg/dL [facility] Comment on above: Random Glucose Refer ence Range is dependent on time and content of last meal. Glucose of more than 200 mg/dL in a nonstressed, ambulatory subject supports the diagnosis of Diabetes Mellitus. Hematocrit Auto (Bld) [Volum e fraction]Ordered By: Amarilis Jameson on 05-03-2022 Hematocrit (Bld) [Volume fraction] 37.1 % 38.8-50.0 [facility] Hemoglobin [Mass/volume] in BloodOrdered By: Amarilis Jameson on 05-03-2022 Hemoglobin (Bld) [Mass/Vol] 11.5 g/dL 13.0-17.0 [facility] Ketones Auto test strip (U) [Mass/Vol]Ordered By: Amarilis Jameson on 05-03-2022 Ketones (U) [Mass/Vol] Negative Negative [facility] - Chemistry and C hemistry - challengeOrdered By: Amarilis Jameson on 05-03-2022 Magnesium [Mass/Vol] 2.1 mg/dL 1.6-2.6 [facility] Natriuretic peptide B (Bld) [Mass/Vol] 20.0 pg/mL 5-100 [facility] - Hematology and Cell countsOrdered By: Amarilis Jameson on 05-03-2022 Nucleated RBC/100 WBC (Bld) [Ratio] 0.0 % 0-0.5 [facility] - Microbiology an d Antimicrobial susceptibilityOrdered By: Amarilis Jameson on 05-03-2022 SARS-CoV-2 (COVID-19) RNA LATOYA+probe Ql (Unsp spec) N/A [facility] - UrinalysisOrder ed By: Amarilis Jameson on 05-03-2022 Hyaline casts LM Ql (Urine sed) 0-8 [LPF] 0-8 [facility] Leukocytes [#/volume] in Blo od by Automated countOrdered By: Amarilis Jameson on 05-03-2022 WBC (Bld) [#/Vol] 7.5 10*3/uL 4.5-11.0 [facility] Lymphocytes Auto (Bld) [#/Vo l]Ordered By: Amarilis Jameson on 05-03-2022 Lymphocytes (Bld) [#/Vol] 1.3 10*3/uL 1.00-4.8 [facility] Lymphocytes/100 WBC Auto (Bl d)Ordered By: Amarilis Jameson on 05-03-2022 Lymphocytes/100 WBC (Bld) 17.2 % . [facility] MCH Auto (RBC) [Entitic mass ]Ordered By: Amarilis Jameson on 05-03-2022 MCH (RBC) [Entitic mass] 23.8 pg 27.5-35.2 [facility] MCHC Auto (RBC) [Mass/Vol]Or dered By: Amarilis Jameson on 05-03-2022 MCHC (RBC) [Mass/Vol] 30.9 g/dL 32.5-35.[address] [facility] MCV Auto (RBC) [Entitic vol] Ordered By: Amarilis Jameson on 05-03-2022 MCV (RBC) [Entitic vol] 77.2 fL 83.5-101 [facility] Monocytes Auto (Bld) [#/Vol] Ordered By: Amarilis Jameson on 05-03-2022 Monocytes (Bld) [#/Vol] 0.7 10*3/uL 0.0-0.8 [facility] Monocytes/100 WBC Auto (Bld) Ordered By: Amarilis Jameson on 05-03-2022 Monocytes/100 WBC (Bld) 9.5 % . [facility] Neutrophils Auto (Bld) [#/Vo l]Ordered By: Amarilis Jameson on 05-03-2022 Neutrophils (Bld) [#/Vol] 5.0 10*3/uL 1.8-7.7 [facility] Neutrophils/100 WBC Auto (Bl d)Ordered By: Amarilis Jameson on 05-03-2022 Neutrophils/100 WBC (Bld) 67.7 % . [facility] Nitrite Test strip Ql (U)Ord ered By: Amarilis Jameson on 05-03-2022 Nitrite Ql (U) Negative Negative [facility] No Panel InformationOrdered By: Amarilis Jameson on 05-03-2022 SARS Antigen (LFIA) [facility] POC Estimated GFR 50 [facility] Comment on above: GFR estimated refere nce range: According to KDOQI guidelines, <60 ml/min/1.73m2 is sufficient to diagnose a patient with chronic kidney disease. POC Estimated GFR Non- Amer 41 [facility] Estimated GFR () 54 mL/Min [facility] Comment on above: GFR estimated refere nce range: According to KDOQI guidelines, <60 ml/min/1.73m2 is sufficient to diagnose a patient with chronic kidney disease. Pharmacy Creatinine Clearance (Chem 66.36 [facility] SARS Antigen (LFIA) [facility] Platelet mean volume Auto (B ld) [Entitic vol]Ordered By: Amarilis Jameson on 05-03-2022 Platelet mean volume (Bld) [Entitic vol] 8.8 fL 6.6-10.1 [facility] Platelets Auto (Bld) [#/Vol] Ordered By: Amarilis Jameson on 05-03-2022 Platelets (Bld) [#/Vol] 213 10*3/uL 150-450 [facility] Protein Auto test strip (U) [Mass/Vol]Ordered By: Amarilis Jameson on 05-03-2022 Protein (U) [Mass/Vol] Negative Negative [facility] RBC Auto (Bld) [#/Vol]Ordere d By: Amarilis Jameson on 05-03-2022 RBC (Bld) [#/Vol] 4.81 10*6/uL 3.90-5.60 [facility] Serum or plasma anion gap de terminationOrdered By: Amarilis Jameson on 05-03-2022 Anion gap [Moles/Vol] 11.7 mmol/L 6.0-15.0 [facility] Serum or plasma calcium paula urement (mass/volume)Ordered By: Amarilis Jameson on 05-03-2022 Calcium [Mass/Vol] 8.2 mg/dL 8.2-10.2 [facility] Serum or plasma chloride miriam surement (moles/volume)Ordered By: Amarilis Jameson on 05-03-2022 Chloride [Moles/Vol] 103 mmol/L 95-114 [facility] Serum or plasma glucose paula urement (mass/volume)Ordered By: Amarilis Jameson on 05-03-2022 Glucose [Mass/Vol] 84 mg/dL 70-100 [facility] Comment on above: ADA recommended refe rence rangeRandom Glucose Reference Range is dependent on time and content of last meal. Glucose of more than 200 mg/dL in a nonstressed, ambulatory subject supports the diagnosis of Diabetes Mellitus. Serum or plasma potassium me asurement (moles/volume)Ordered By: Amarilis Jameson on 05-03-2022 Potassium [Moles/Vol] 4.3 mmol/L 3.5-5.[address] [facility] Serum or plasma sodium measu rement (moles/volume)Ordered By: Amarilis Jameson on 05-03-2022 Sodium [Moles/Vol] 136 mmol/L 136-146 [facility] Serum or plasma total carbon dioxide measurement (moles/volume)Ordered By: Amarilis Jameson on 05-03-2022 CO2 [Moles/Vol] 25.6 mmol/L 22.0-30.0 [facility] Serum or plasma urea nitroge n measurement (mass/volume)Ordered By: Amarilis Jameson on 05-03-2022 Urea nitrogen [Mass/Vol] 20 mg/dL 9-23 [facility] Specific gravity Auto test s trip (U) [Rel density]Ordered By: Amarilis Jameson on 05-03-2022 Specific gravity (U) [Rel density] 1.015 1.001-1.03 0 [facility] Squamous epithelial cells de tection in urine sediment by light microscopyOrdered By: Amarilis Jameson on 05-03-2022 Epithelial cells.squamous LM Ql (Urine sed) 1-2 [HPF] 0-2 [facility] Troponin I.cardiac [Mass/vol ume] in Serum or Plasma by High sensitivity methodOrdered By: Amarilis Jameson on 05-03-2022 Troponin I.cardiac High sensitivity method [Mass/Vol] 4 pg/mL 0-20 [facility] Urine bacteria detection by automated methodOrdered By: Amarilis Jameson on 05-03-2022 Bacteria Auto Ql (U) None seen None Seen [facility] Urine clarity by refractomet ry automatedOrdered By: Amarilis Jameson on 05-03-2022 Clarity Refractometry automated (U) Clear Clear [facility] Urine glucose measurement by automated test strip (mass/volume)Ordered By: Amarilis Jameson on 05-03-2022 Glucose Auto test strip (U) [Mass/Vol] Normal mg/dL Normal [facility] Urine hemoglobin detection b y automated test stripOrdered By: Amarilis Jameson on 05-03-2022 Hemoglobin Auto test strip Ql (U) Negative Negative [facility] Urine leukocyte esterase det ection by automated test stripOrdered By: Amarilis Jameson on 05-03-2022 Leukocyte esterase Auto test strip Ql (U) 1+ Negative [facility] Urobilinogen Auto test strip (U) [Mass/Vol]Ordered By: Amarilis Jameson on 05-03-2022 Urobilinogen (U) [Mass/Vol] Normal mg/dL Normal [facility] pH Auto test strip (U)Ordere d By: Amarilis Jameson on 05-03-2022 pH (U) 6.0 [pH] 5.0-9.0 [facility] CNPNon 04-01-2022 SHEAN Telephone (ESA) ----- BARBARAMARY Prieto ([id number]) 1960 M Date Time Provider Department 04/01/22 CHRISTINE GUTIERREZ During your visit today, we recorded the following information about you: Christine Gutierrez PA-C 04/01/2022 12:35 PM Signed I called Alfredo on 04/01/2022 at 12:32 PM. Left a voicemail informing him that I have discussed overall plan of care going forward with Dr. Steele. Will send Kontiki message detailing plan. Advised to respond to message or call back with questions. Allergies As of Date: 04/01/2022 Noted Allergy Reaction PENICILLINS 06/07/2014 10 - Anaphylaxis LATEX 09/04/2016 2 - Rash Date Reviewed: 02/27/2022 Reviewed by: Rhonda Hay MA - Fully Assessed Reason for Visit: Wound Care [485] Primary Visit Diagnosis:Spinal stenosis of lumbar region with neurogenic claudication [M48.062] Order(s):SPINE INTERVENTION PROCEDURE [7072900] Order #: [id number] Prescriptions as of 04/01/2022 - QUEtiapine (SEROQUEL) [...] Encounter Status:Closed by CHRISTINE GUTIERREZ on 04/01/22 [facility] Basophils Auto (Bld) [#/Vol] Ordered By: Jose Valdovinos on 02-25-2022 Basophils (Bld) [#/Vol] 0.1 10*3/uL 0.0-0.2 [facility] Basophils/100 WBC Auto (Bld) Ordered By: Jose Valdovinos on 02-25-2022 Basophils/100 WBC (Bld) 0.9 % . [facility] Blood hemoglobin measurement (mass/volume)Ordered By: Jose Valdovinos on 02-25-2022 Hemoglobin (Bld) [Mass/Vol] 10.7 g/dL 13.0-17.0 [facility] Blood leukocytes automated c ount (number/volume)Ordered By: Jose Valdovinos on 02-25-2022 WBC (Bld) [#/Vol] 5.7 10*3/uL 4.5-11.0 [facility] Body fluid albumin measureme nt (mass/volume)Ordered By: Jose Valdovinos on 02-25-2022 Albumin (Body fld) [Mass/Vol] 3.9 g/dL 3.2-5.5 [facility] Cholesterol [Mass/volume] in Serum or PlasmaOrdered By: Jose Valdovinos on 02-25-2022 Cholesterol [Mass/Vol] 194 mg/dL 140-200 [facility] Comment on above: Chol less than 200 m g/dl low risk Chol 201-239 mg/dl borderline risk Chol 240 mg/dl and greater high risk Chol less than 200 m g/dl low riskChol 201-239 mg/dl borderline riskChol 240 mg/dl and greater high risk Cholesterol in LDL Calc [Mas s/Vol]Ordered By: Jose Valdovinos on 02-25-2022 Cholesterol in LDL [Mass/Vol] 115 mg/dL 0-100 [facility] Comment on above: LDL ATP III [...] in VLDL Calc [Ma ss/Vol]Ordered By: Jose Valdovinos on 02-25-2022 Cholesterol in VLDL [Mass/Vol] 41 mg/dL [facility] Creatinine and Glomerular fi ltration rate.predicted panel (S/P/Bld)Ordered By: Jose Valdovinos on 02-25-2022 Creatinine [Mass/Vol] 1.33 mg/dL 0.64-1.[address] [facility] Direct bilirubin measurement Ordered By: Jose Valdovinos on 02-25-2022 Bilirubin.direct [Mass/Vol] mg/dL 0.0-0.4 [facility] Eosinophils Auto (Bld) [#/Vo l]Ordered By: Jose Valdovinos on 02-25-2022 Eosinophils (Bld) [#/Vol] 0.3 10*3/uL 0.0-0.45 [facility] Eosinophils/100 WBC Auto (Bl d)Ordered By: Jose Valdovinos on 02-25-2022 Eosinophils/100 WBC (Bld) 5.3 % . [facility] Erythrocyte distribution wid th Auto (RBC) [Ratio]Ordered By: Jose Valdovinos on 02-25-2022 Erythrocyte distribution width (RBC) [Ratio] 16.1 % 12.0-14.8 [facility] Estimated glomerular filtrat ion rate (GFR) non- AmericanOrdered By: Jose Valdovinos on 02-25-2022 GFR/1.73 sq M.predicted among non-blacks MDRD (S/P/Bld) [Vol rate/Area] 54 mL/Min [facility] Globulin Calc (S) [Mass/Vol] Ordered By: Jose Valdovinos on 02-25-2022 Globulin (S) [Mass/Vol] 2.5 g/dL [facility] Glucose mean value [Mass/vol ume] in Blood Estimated from glycated hemoglobinOrdered By: Jose Valdovinos on 02-25-2022 Average glucose Estimated from glycated hemoglobin (Bld) [Mass/Vol] 120 mg/dL [facility] Hematocrit Auto (Bld) [Volum e fraction]Ordered By: Jose Valdovinos on 02-25-2022 Hematocrit (Bld) [Volume fraction] 33.6 % 38.8-50.0 [facility] Hemoglobin A1c percentageOrd ered By: Jose Valdovinos on 02-25-2022 HbA1c (Bld) [Mass fraction] 5.8 % 4.3-5.6 [facility] Comment on above: Increased risk for d iabetes: 5.7 - 6.4 diabetes: >6.4 glycemic control for adults with diabetes: <7.0 Increased risk for d iabetes: 5.7 - 6.4diabetes: >6.4glycemic control for adults with diabetes: <7.0 Laboratory - Hematology and Cell countsOrdered By: Jose Valdovinos on 02-25-2022 Nucleated RBC/100 WBC (Bld) [Ratio] 0.1 % 0-0.5 [facility] Lymphocytes Auto (Bld) [#/Vo l]Ordered By: Jose Valdovinos on 02-25-2022 Lymphocytes (Bld) [#/Vol] 0.9 10*3/uL 1.00-4.8 [facility] Lymphocytes/100 WBC Auto (Bl d)Ordered By: Jose Valdovinos on 02-25-2022 Lymphocytes/100 WBC (Bld) 15.6 % . [facility] MCH Auto (RBC) [Entitic mass ]Ordered By: Jose Valdovinos on 02-25-2022 MCH (RBC) [Entitic mass] 25.4 pg 27.5-35.2 [facility] MCHC Auto (RBC) [Mass/Vol]Or dered By: Jose Valdovinos on 02-25-2022 MCHC (RBC) [Mass/Vol] 31.9 g/dL 32.5-35.[address] [facility] MCV Auto (RBC) [Entitic vol] Ordered By: Jose Valdovinos on 02-25-2022 MCV (RBC) [Entitic vol] 79.6 fL 83.5-101 [facility] Monocytes Auto (Bld) [#/Vol] Ordered By: Jose Valdovinos on 02-25-2022 Monocytes (Bld) [#/Vol] 0.5 10*3/uL 0.0-0.8 [facility] Monocytes/100 WBC Auto (Bld) Ordered By: Jose Valdovinos on 02-25-2022 Monocytes/100 WBC (Bld) 8.9 % . [facility] Neutrophils Auto (Bld) [#/Vo l]Ordered By: Jose Valdovinos on 02-25-2022 Neutrophils (Bld) [#/Vol] 3.9 10*3/uL 1.8-7.7 [facility] Neutrophils/100 WBC Auto (Bl d)Ordered By: Jose Valdovinos on 02-25-2022 Neutrophils/100 WBC (Bld) 69.3 % . [facility] No Panel InformationOrdered By: Rosey Dubose on 02-25-2022 Prostate Specific Antigen Screen 0.160 ng/mL 0.000-4.00 0 [facility] No Panel InformationOrdered By: Jose Valdovinos on 02-25-2022 Estimated GFR () > 60 mL/Min [facility] Comment on above: GFR estimated refere nce range: According to KDOQI guidelines, <60 ml/min/1.73m2 is sufficient to diagnose a patient with chronic kidney disease. Pharmacy Creatinine Clearance (Chem N/A [facility] Platelet mean volume Auto (B ld) [Entitic vol]Ordered By: Jose Valdovinos on 02-25-2022 Platelet mean volume (Bld) [Entitic vol] 9.3 fL 6.6-10.1 [facility] Platelets Auto (Bld) [#/Vol] Ordered By: Jose Valdovinos on 02-25-2022 Platelets (Bld) [#/Vol] 241 10*3/uL 150-450 [facility] Protein [Mass/volume] in Ser um or PlasmaOrdered By: Jose Valdovinos on 02-25-2022 Protein [Mass/Vol] 6.4 g/dL 6.1-7.9 [facility] RBC Auto (Bld) [#/Vol]Ordere d By: Jose Valdovinos on 02-25-2022 RBC (Bld) [#/Vol] 4.23 10*6/uL 3.90-5.60 [facility] Serum or plasma alanine cherry otransferase measurement without P-5'-P (enzymatic activiOrdered By: Jose Valdovinos on 02-25-2022 ALT No additional P-5'-P [Catalytic activity/Vol] 18 U/L 10-60 [facility] Serum or plasma albumin/glob ulin mass ratioOrdered By: Jose Valdovinos on 02-25-2022 Albumin/Globulin [Mass ratio] 1.6 {ratio} [facility] Serum or plasma alkaline victorina sphatase measurement (enzymatic activity/volume)Ordered By: Jose Valdovinos on 02-25-2022 ALP [Catalytic activity/Vol] 79 U/L 32-92 [facility] Serum or plasma anion gap de terminationOrdered By: Jose Valdovinos on 02-25-2022 Anion gap [Moles/Vol] 13.6 mmol/L 6.0-15.0 [facility] Serum or plasma aspartate am inotransferase measurement (enzymatic activity/volume)Ordered By: Jose Valdovinos on 02-25-2022 AST [Catalytic activity/Vol] 18 U/L 10-42 [facility] Serum or plasma calcium paula urement (mass/volume)Ordered By: Jose Valdovinos on 02-25-2022 Calcium [Mass/Vol] 9.1 mg/dL 8.2-10.2 [facility] Serum or plasma chloride miriam surement (moles/volume)Ordered By: Jose Valdovinos on 02-25-2022 Chloride [Moles/Vol] 100 mmol/L 95-114 [facility] Serum or plasma glucose paula urement (mass/volume)Ordered By: Jose Valdovinos on 02-25-2022 Glucose [Mass/Vol] 99 mg/dL 70-100 [facility] Comment on above: ADA recommended refe rence [...] density lipoprotein (HDL) cholesterol measurementOrdered By: Jose Valdovinos on 08-30-2022 Cholesterol in HDL [Mass/Vol] 38 mg/dL [facility] Comment on above: HDL CHOL ATP-III CLA SSIFICATION Cardiovascular Risk HDL > or equal to 60 mg/dL LOW HDL < 40 mg/dL HIGH HDL CHOL ATP-III CLA SSIFICATION Cardiovascular RiskHDL > or equal to 60 mg/dL LOWHDL < 40 mg/dL HIGH Serum or plasma non-glucuron idated bilirubin measurement (mass/volume)Ordered By: Jose Valdovinos on 02-25-2022 Bilirubin.indirect [Mass/Vol] TNP [facility] Comment on above: Test not performed Serum or plasma potassium me asurement (moles/volume)Ordered By: Jose Valdovinos on 02-25-2022 Potassium [Moles/Vol] 4.4 mmol/L 3.5-5.[address] [facility] Serum or plasma sodium measu rement (moles/volume)Ordered By: Jose Valdovinos on 02-25-2022 Sodium [Moles/Vol] 136 mmol/L 136-146 [facility] Serum or plasma thyroxine (T 4) measurement (mass/volume)Ordered By: Jose Valdovinos on 02-25-2022 T4 [Mass/Vol] 6.61 ug/dL 5.39-11.82 [facility] Serum or plasma total biliru bin measurement (mass/volume)Ordered By: Jose Valdovinos on 02-25-2022 Bilirubin [Mass/Vol] 0.6 mg/dL 0.3-1.2 [facility] Serum or plasma total carbon dioxide measurement (moles/volume)Ordered By: Jose Valdovinos on 02-25-2022 CO2 [Moles/Vol] 26.8 mmol/L 22.0-30.0 [facility] Serum or plasma total choles terol/high density lipoprotein (HDL) cholesterol mass ratOrdered By: Jose Valdovinos on 02-25-2022 Cholesterol.total/Chol esterol in HDL [Mass ratio] 5.1 {ratio} <5.0 [facility] Serum or plasma urea nitroge n measurement (mass/volume)Ordered By: Jose Valdovinos on 02-25-2022 Urea nitrogen [Mass/Vol] 19 mg/dL 03-21 [facility] TSH DL <= 0.005 mIU/L QnOrde red By: Jose Valdovinos on 02-25-2022 TSH Qn 2.55 m[IU]/L 0.45-5.33 [facility] Testosterone [Mass/volume] i n Serum or PlasmaOrdered By: Rosey Dubose on 02-25-2022 Testosterone [Mass/Vol] 12.54 ng/mL 1.75-7.81 [facility] Triglyceride [Mass/volume] i n Serum or PlasmaOrdered By: Jose Valdovinos on 02-25-2022 Triglyceride [Mass/Vol] 207 mg/dL 35-149 [facility] Comment on above: TRIG ATP III [...] Disease Conrtrol and Prevention (CDC) test method. Creatinine and Glomerular fi ltration rate.predicted panel (S/P/Bld)Ordered By: NON STAFF on 02-07-2022 Creatinine [Mass/Vol] 1.63 mg/dL 0.64-1.[address] [facility] Estimated glomerular filtrat ion rate (GFR) non- AmericanOrdered By: NON STAFF on 02-07-2022 GFR/1.73 sq M.predicted among non-blacks MDRD (S/P/Bld) [Vol rate/Area] 43 mL/Min [facility] No Panel InformationOrdered By: NON STAFF on 02-07-2022 Estimated GFR () 52 mL/Min [facility] Comment on above: GFR estimated refere nce range: According to KDOQI guidelines, <60 ml/min/1.73m2 is sufficient to diagnose a patient with chronic kidney disease. Pharmacy Creatinine Clearance (Chem N/A [facility] Serum or plasma calcium paula urement (mass/volume)Ordered By: NON STAFF on 02-07-2022 Calcium [Mass/Vol] 8.7 mg/dL 8.2-10.2 [facility] Serum or plasma chloride miriam surement (moles/volume)Ordered By: NON STAFF on 02-07-2022 Chloride [Moles/Vol] 100 mmol/L 95-114 [facility] Serum or plasma glucose paula urement (mass/volume)Ordered By: NON STAFF on 02-07-2022 Glucose [Mass/Vol] 92 mg/dL 70-100 [facility] Comment on above: ADA recommended refe rence range Random Glucose Reference Range is dependent on time and content of last meal. Glucose of more than 200 mg/dL in a nonstressed, ambulatory subject supports the diagnosis of Diabetes Mellitus. Serum or plasma potassium me asurement (moles/volume)Ordered By: NON STAFF on 02-07-2022 Potassium [Moles/Vol] 4.6 mmol/L 3.5-5.[address] [facility] Serum or plasma sodium measu rement (moles/volume)Ordered By: NON STAFF on 02-07-2022 Sodium [Moles/Vol] 135 mmol/L 136-146 [facility] Serum or plasma total carbon dioxide measurement (moles/volume)Ordered By: NON STAFF on 02-07-2022 CO2 [Moles/Vol] 25.7 mmol/L 22.0-30.0 [facility] Serum or plasma urea nitroge n measurement (mass/volume)Ordered By: NON STAFF on 02-07-2022 Urea nitrogen [Mass/Vol] 22 mg/dL 9-23 [facility] C-REACTIVE PROTEIN (CRP)on 0 01-30-2022 CRP [Mass/Vol] mg/L <0.9 mg/dL [facility] CBC W Auto Differential pane l (Bld)on 01-30-2022 Abs Immature Gran <0.03 <0.10 k/uL [facility] Basophils (Bld) [#/Vol] 0.03 10*3/uL <0.11 k/uL [facility] Basophils/100 WBC (Bld) 0.5 % [facility] Differential cell count method Nom (Bld) Auto [facility] Eosinophils (Bld) [#/Vol] 0.30 10*3/uL <0.46 k/uL [facility] Eosinophils/100 WBC (Bld) 5.4 % [facility] Erythrocyte distribution width (RBC) [Ratio] 14.3 % 11.5 - 15.0 % [facility] Hematocrit (Bld) [Volume fraction] 34.0 % Low 39.0 - 51.0 % [facility] Hemoglobin (Bld) [Mass/Vol] 10.5 g/dL Low 13.0 - 17.0 g/dL [facility] Immature Gran % 0.2 % [facility] Lymphocytes (Bld) [#/Vol] 1.08 10*3/uL 1.00 - 4.00 k/uL [facility] Lymphocytes/100 WBC (Bld) 19.6 % [facility] MCH (RBC) [Entitic mass] 25.7 pg Low 26.0 - 34.0 pg [facility] MCHC (RBC) [Mass/Vol] 30.9 g/dL 30.5 - 36.0 g/dL [facility] MCV (RBC) [Entitic vol] 83.1 fL 80.0 - 100.0 fL [facility] Monocytes (Bld) [#/Vol] 0.61 10*3/uL <0.87 k/uL [facility] Monocytes/100 WBC (Bld) 11.1 % [facility] Neutrophils (Bld) [#/Vol] 3.49 10*3/uL 1.45 - 7.50 k/uL [facility] Neutrophils/100 WBC (Bld) 63.2 % [facility] Nucleated RBC (Bld) [#/Vol] 10*3/uL <0.01 k/uL [facility] Nucleated RBC/100 WBC (Bld) [Ratio] 0.0 /100 WBC [facility] Platelet mean volume (Bld) [Entitic vol] 11.5 fL 9.0 - 12.7 fL [facility] Platelets (Bld) [#/Vol] 236 10*3/uL 150 - 400 k/uL [facility] RBC (Bld) [#/Vol] 4.09 10*6/uL Low 4.20 - 6.00 m/uL [facility] WBC (Bld) [#/Vol] 5.52 10*3/uL 3.70 - 11.00 k/uL [facility] Basic metabolic 2000 panelon 07-11-2022 Anion gap [Moles/Vol] 9 mmol/L Normal 9-18 [facility] Comment on above: Order Comment: Speci men Type: BLOOD SPECIMENOrdering Facility: [facility] Address: [address] [place] [address] Performed By: #### 2 4321-2 ####JEW[facility] LABORATORYCLIA [id number] [place] [id number] [place] Calcium [Mass/Vol] 8.8 mg/dL Normal 8.5-10.2 [facility] Comment on above: Order Comment: Speci men Type: BLOOD SPECIMENOrdering Facility: [facility] Address: [address] [place] [address] Performed By: #### 2 4321-2 ####JEWISH LABORATORYCLIA [id number] [place] [address] [place] Chloride [Moles/Vol] 105 mmol/L Normal 97-105 [facility] Comment on above: Order Comment: Speci men Type: BLOOD SPECIMENOrdering Facility: [facility] Address: [address] [place] [address] Performed By: #### 2 4321-2 ####JEWISH LABORATORYCLIA [id number] [place] [address] [place] CO2 [Moles/Vol] 27 mmol/L Normal 22-30 [facility] Comment on above: Order Comment: Speci men Type: BLOOD SPECIMENOrdering Facility: [facility] Address: [address] [place], [place] [id number] Performed By: #### 2 4321-2 ####JEWISH LABORATORYCLIA [id number] [place] [address] [place] Creatinine [Mass/Vol] 1.19 mg/dL Normal 0.73-1.22 [facility] Comment on above: Order Comment: Speci men Type: BLOOD SPECIMENOrdering Facility: [facility] Address: [address] [place] [address] Performed By: #### 2 4321-2 ####JEWISH LABORATORYCLIA [id number] [place] [address] [place] ESTIMATED GLOMERULAR FILTRATION RATE 69 mL/min/1.73m??? Normal >=60 [facility] Comment on above: Order Comment: Clarice conway Type: BLOOD SPECIMENOrdering Facility: [facility] Address: [address] [place] [address] Result Comment: Jane mated Glomerular Filtration Rate [...] actual GFR. Performed By: #### 2 4321-2 ####JEWISH LABORATORYCLIA [id number] [place] [address] [place] Glucose [Mass/Vol] 111 mg/dL High 74-99 [facility] Comment on above: Order Comment: Clarice conway Type: BLOOD SPECIMENOrdering Facility: [facility] Address: [address] [place] [address] Result Comment: The [place] Diabetes Association (ADA) provides guidance for cutoff [...] Standards of Medical Care in Diabetes 2016, [place] Diabetes Association. Diabetes Care. 2016.39(Suppl 1). Performed By: #### 2 4321-2 ####JEWISH LABORATORYCLIA [id number] [address] STATES OF [facility] Potassium [Moles/Vol] 3.9 mmol/L Normal 3.7-5.1 [facility] Comment on above: Order Comment: Speci men Type: BLOOD SPECIMENOrdering Facility: [facility] Address: [address] [place] [address] Performed By: #### 2 4321-2 ####JEWISH LABORATORYCLIA [id number] [place] [address] [place] [facility] Sodium [Moles/Vol] 141 mmol/L Normal 136-144 [facility] Comment on above: Order Comment: Speci men Type: BLOOD SPECIMENOrdering Facility: [facility] Address: [address] [place] [address] Performed By: #### 2 4321-2 ####JEWISH LABORATORYCLIA [id number] [place] [address] [facility] Urea nitrogen [Mass/Vol] 9 mg/dL Normal 9-24 [facility] Comment on above: Order Comment: Speci men Type: BLOOD SPECIMENOrdering Facility: [facility] Address: [address] [place] [address] Performed By: #### 2 4321-2 ####JEWISH LABORATORYCLIA [id number] [place] [address] [facility] CASE MANAGEMon 01-06-2022 CASE MANAGEM HNO ID: [id number] Author: Gracia Lr RN Service: ? Author Type: Registered Nurse Type: Care Mgt Progress Note Filed: 01/06/2022 4:32 PM Note Text: CARE MANAGEMENT DISCHARGE NOTE SERVICE DATE: 01/06/2022 SERVICE TIME: 4:31 pm LOS: 6 days Admission Date: 12/31/2021 DISCHARGE ARRANGEMENT (list agency and phone number) Discharge Arrangement: Home with Home Health (for SN / PT / OT) Provider Name: Julius HANDOFF COMMUNICATION: Handoff to: (see summary of care) TRANSPORTATION ARRANGEMENTS: Transportation Arrangements: Car (with a friend) ADDITIONAL CONTACT RESOURCES: Discharge Information Row Name Admission (Current) from 12/31/[address] [facility] Agency [facility] - Home Health Needs Prior to Discharge: Ready for Discharge SIGNATURE: Gracia Lr RN PATIENT NAME: Mary Jimenez DATE: January 06, 2022 TIME: 4:31 PM PAGER/CONTACT #: [phone] [facility] CASE MANAGEM HNO ID: [id number] Author: Helena Triplett Service: ? Author Type: [employer] In[employer] Type: Care Mgt Progress Note Filed: 01/06/2022 10:47 AM Note Text: CARE MANAGEMENT PROGRESS NOTE SERVICE DATE: 01/06/2022 SERVICE TIME: 10:30AM LOS: 6 days IMM Follow Up Copy Given: Yes Copy given to:: Patient Method: In Person Alfredo is aware of IMM right SIGNATURE: Helena Triplett PATIENT NAME: Mary Jimenez DATE: January 06, 2022 TIME: 10:47 AM PAGER/CONTACT #: [phone] [facility] CBC panel Auto (Bld)on 01-06 Erythrocyte distribution width (RBC) [Ratio] 15.9 % High 11.5-15.0 [facility] Comment on above: Order Comment: Speci men Type: BLOOD SPECIMENOrdering Facility: [facility] Address: [address] [place] [address] Performed By: #### 5 8410-2 ####JEWISH LABORATORYCLIA [id number] [address] OF [facility] Hematocrit (Bld) [Volume fraction] 25.5 % Low 39.0-51.0 [facility] Comment on above: Order Comment: Speci men Type: BLOOD SPECIMENOrdering Facility: [facility] Address: [address] [place] [address] Performed By: #### 5 8410-2 ####JEWISH LABORATORYCLIA [id number] [address] Hemoglobin (Bld) [Mass/Vol] 8.1 g/dL Low 13.0-17.0 [facility] Comment on above: Order Comment: Speci men Type: BLOOD SPECIMENOrdering Facility: [facility] Address: [address] [place] [address] Performed By: #### 5 8410-2 ####JEWISH LABORATORYCLIA [id number] [address] MCH (RBC) [Entitic mass] 27.4 pg Normal 26.0-34.0 [facility] Comment on above: Order Comment: Speci men Type: BLOOD SPECIMENOrdering Facility: [facility] Address: [address] [place] [address] Performed By: #### 5 8410-2 ####JEWISH LABORATORYCLIA [id number] [address] MCHC (RBC) [Mass/Vol] 31.8 g/dL Normal 30.5-36.0 [facility] Comment on above: Order Comment: Speci men Type: BLOOD SPECIMENOrdering Facility: [facility] Address: [address] [place] [address] Performed By: #### 5 8410-2 ####JEWISH LABORATORYCLIA [id number] [address] [place] [facility] MCV (RBC) [Entitic vol] 86.1 fL Normal 80.0-100.0 [facility] Comment on above: Order Comment: Speci men Type: BLOOD SPECIMENOrdering Facility: [facility] Address: [address] [place] [address] Performed By: #### 5 8410-2 ####JEWISH LABORATORYCLIA [id number] [address] Nucleated RBC (Bld) [#/Vol] 10*3/uL Normal <0.01 [facility] Comment on above: Order Comment: Speci men Type: BLOOD SPECIMENOrdering Facility: [facility] Address: [address] [place], [place] [address] Performed By: #### 5 8410-2 ####JEWISH LABORATORYCLIA [id number] [place] [id number] [place] Platelet mean volume (Bld) [Entitic vol] 10.8 fL Normal 9.0-12.7 [facility] Comment on above: Order Comment: Speci men Type: BLOOD SPECIMENOrdering Facility: [facility] Address: [address] [place], [place] [address] Performed By: #### 5 8410-2 ####JEWISH LABORATORYCLIA [id number] [place] [address] [place] Platelets (Bld) [#/Vol] 277 10*3/uL Normal 150-400 [facility] Comment on above: Order Comment: Speci men Type: BLOOD SPECIMENOrdering Facility: [facility] Address: [address] [place], [place] [address] Performed By: #### 5 8410-2 ####JEWISH LABORATORYCLIA [id number] [place] [address] [place] RBC (Bld) [#/Vol] 2.96 10*6/uL Low 4.20-6.00 [facility] Comment on above: Order Comment: Speci men Type: BLOOD SPECIMENOrdering Facility: [facility] Address: [address] [address] [place], [place] [address] Performed By: #### 5 8410-2 ####[facility] LABORATORYCLIA [id number] [place] [id number] [place] WBC (Bld) [#/Vol] 4.65 10*3/uL Normal 3.70-11.00 [facility] Comment on above: Order Comment: Speci men Type: BLOOD SPECIMENOrdering Facility: [facility] Address: [address] [place], [place] [address] Performed By: #### 5 8410-2 ####[facility] [id number] [address] CNDSon 01-06-2022 CNDS HNO ID: [id number] Author: Taylor Tucker PA-C Service: Neurosurgery Author Type: Physician Weapons And Tactics Instructor Type: Discharge Summary Filed: 01/08/2022 8:52 AM Note Text: ----- Attestation signed by Loyda Steele MD at 01/13/2022 7:38 AM Loyda Steele MD ----- DISCHARGE SUMMARY PATIENT NAME: Mary Jimenez Code [...] Loyda Steele MD Primary Care Provider: Jose Valdovinos DO My Medical Team Members: Treatment Team: [...] POD 1. Pain was initially controlled on FOOD PRODUCT INSPECTOR pump. Pain management consulted and adjusted PO [...] you become constipated, you may use any cbog-ulz-siywddn treatment such as Milk of Magnesia, Sennakot, [...] medication (see prescription) You should use an adfz-cyv-sqlqrrc stool softener (Docusate sodium) and/or a fiber [...] Care Critical Issu (more content not included)... [facility] THERAPY NTon 01-06-2022 THERAPY HNO ID: [id number] Author: Dionte Estrada PT Service: Physical Therapy Author Type: Physical Therapist Type: Therapy (PT/OT/Speech/Resp) Filed: 01/06/2022 2:47 PM Note Text: Physical Therapy Treatment SERVICE DATE: 01/06/2022 SERVICE TIME: 1420 to 1434 ROOM: [place] [address] Recommended Discharge Disposition: Home PT Recommended Discharge [...] at Home Physical Assist at Home for: Cleaning;Laundry;Shopping ;Transportation Supervision at Home due to: Decreased safety [...] Impairment;Balance Impaired Treatment Interventions: Education;Energy Conservation Training;Joint Mobility;Strengthening;Fu nctional Mobility Training;Balance Training;Edema Management;Pain Management Modalities: Ice [...] shower Laundry: first floor Equipment Owned: Cane;Wheeled Walker;Methods Analyst;Grab Bars-Shower;ADL Kit;Elevated Toilet Seat;Shower Chair;Elastic Shoe Laces;Hospital Bed (PEr pt he does not have elevated toilet seat, sock aid etc.) Prior Functional Level: Required Assistance Assistance Required With: Cleaning;Laundry;Transpor tation Prior Functional Level Comments: Patient vague and questionable historian. Has hospital bed but sleeping on sofa with his dog. Unclear using walker as per pt initially for 2 weeks he did not use walker. Per pt spends most of his time laying down. Microwaves meals. Online orders from [employer]. Per pt he puts on his socks [...] to maintain balance while turning head/trunk -HLM: 8: Walk 250 feet or more Learning/Educational Needs: Discharge Plan;Functional Activities/Mobility;Pain Management;Precautions;Re habilitation Techniques and Procedures;Safety Goals for Plan of C (more content not included)... [facility] THERAPY NT HNO ID: [id number] Author: Dionte Estrada, PT Service: Physical Therapy Author Type: Physical Therapist Type: Therapy (PT/OT/Speech/Resp) Filed: 01/06/2022 2:36 PM Note Text: Physical Therapy Treatment SERVICE DATE: 01/06/2022 SERVICE TIME: 835 to 900 ROOM: [place] [address] Recommended Discharge Disposition: Subacute/SNF Recommended Discharge Disposition [...] at Home Physical Assist at Home for: Cleaning;Laundry;Meals;Sa fety;Transportation;Shopp ing Supervision at Home due to: Decreased safety [...] Impairment;Balance Impaired Treatment Interventions: Education;Energy Conservation Training;Joint Mobility;Strengthening;Fu nctional Mobility Training;Balance Training;Edema Management;Pain Management Modalities: Ice [...] shower Laundry: first floor Equipment Owned: Cane;Wheeled Walker;Methods Analyst;Grab Bars-Shower;ADL Kit;Elevated Toilet Seat;Shower Chair;Elastic Shoe Laces;Hospital Bed (PEr pt he does not have elevated toilet seat, sock aid etc.) Prior Functional Level: Required Assistance Assistance Required With: Cleaning;Laundry;Transpor tation Prior Functional Level Comments: Patient vague and questionable historian. Has hospital bed but sleeping on sofa with his dog. Unclear using walker as per pt initially for 2 weeks he did not use walker. Per pt spends most of his time laying down. Microwaves meals. Online orders from [employer]. Per pt he puts on his socks [...] Needs: Discharg (more content not included)... Normal [facility] Basic metabolic 2000 panelon 01-05-2022 Anion gap [Moles/Vol] 9 mmol/L Normal 9-18 [facility] Comment on above: Order Comment: Speci men Type: BLOOD SPECIMENOrdering Facility: [facility] Address: [address] [address] Performed By: #### 2 4321-2 ####JEWISH LABORATORYCLIA [id number] [place] [address] [place] Calcium [Mass/Vol] 8.5 mg/dL Normal 8.5-10.2 [facility] Comment on above: Order Comment: Speci men Type: BLOOD SPECIMENOrdering Facility: [facility] Address: [address] [address] Performed By: #### 2 4321-2 ####JEWISH LABORATORYCLIA [id number] [place] [address] [place] Chloride [Moles/Vol] 101 mmol/L Normal 97-105 [facility] Comment on above: Order Comment: Speci men Type: BLOOD SPECIMENOrdering Facility: [facility] Address: [address] [place] [address] Performed By: #### 2 4321-2 ####JEW[facility] LABORATORYCLIA [id number] [place] [address] [place] CO2 [Moles/Vol] 27 mmol/L Normal 22-30 [facility] Comment on above: Order Comment: Speci men Type: BLOOD SPECIMENOrdering Facility: [facility] Address: [address] [place] [address] Performed By: #### 2 4321-2 ####JEWISH LABORATORYCLIA [id number] [place] [address] [place] Creatinine [Mass/Vol] 1.18 mg/dL Normal 0.73-1.22 [facility] Comment on above: Order Comment: Speci men Type: BLOOD SPECIMENOrdering Facility: [facility] Address: [address] [place] [address] Performed By: #### 2 4321-2 ####JEWISH LABORATORYCLIA [id number] [place] [address] [place] ESTIMATED GLOMERULAR FILTRATION RATE 70 mL/min/1.73m??? Normal >=60 [facility] Comment on above: Order Comment: Speci men Type: BLOOD SPECIMENOrdering Facility: [facility] Address: [address] [place] [address] Result Comment: Jane mated Glomerular Filtration Rate [...] actual GFR. Performed By: #### 2 4321-2 ####JEWISH LABORATORYCLIA [id number] [place] [address] [place] Glucose [Mass/Vol] 124 mg/dL High 74-99 [facility] Comment on above: Order Comment: Speci men Type: BLOOD SPECIMENOrdering Facility: [facility] Address: [address] [place], [place] [address] Result Comment: The [place] Diabetes Association (ADA) provides guidance for cutoff [...] Standards of Medical Care in Diabetes 2016, [place] Diabetes Association. Diabetes Care. 2016.39(Suppl 1). Performed By: #### 2 4321-2 ####JEWISH LABORATORYCLIA [id number] [place] [address] [place] Potassium [Moles/Vol] 4.1 mmol/L Normal 3.7-5.1 [facility] Comment on above: Order Comment: Speci men Type: BLOOD SPECIMENOrdering Facility: [facility] Address: [address] [place], [place] [address] Performed By: #### 2 4321-2 ####JEWISH LABORATORYCLIA [id number] [place] [address] [place] Sodium [Moles/Vol] 137 mmol/L Normal 136-144 [facility] Comment on above: Order Comment: Speci men Type: BLOOD SPECIMENOrdering Facility: [facility] Address: [address] [place], [place] [address] Performed By: #### 2 4321-2 ####JEWISH LABORATORYCLIA [id number] [place] [address] [place] Urea nitrogen [Mass/Vol] 9 mg/dL Normal 9-24 [facility] Comment on above: Order Comment: Speci men Type: BLOOD SPECIMENOrdering Facility: [facility] Address: [address] [place] [address] Performed By: #### 2 4321-2 ####JEWISH LABORATORYIA [id number] [address] [place] CBC panel Auto (Bld)on 01-05 Erythrocyte distribution width (RBC) [Ratio] 15.9 % High 11.5-15.0 [facility] Comment on above: Order Comment: Speci men Type: BLOOD SPECIMEN [facility] Address: [address] [place] [address] Performed By: #### 5 8410-2 #### [facility] CLIA [id number] [address] [place] [address] [place] Hematocrit (Bld) [Volume fraction] 25.4 % Low 39.0-51.0 [facility] Comment on above: Order Comment: Speci men Type: BLOOD SPECIMEN [facility] Address: [address] [place] [address] Performed By: #### 5 8410-2 #### [facility] [place] [id number] [address] [place] [address] [place] Hemoglobin (Bld) [Mass/Vol] 8.1 g/dL Low 13.0-17.0 [facility] Comment on above: Order Comment: Speci men Type: BLOOD SPECIMEN [facility] Address: [address] [place] [address] Performed By: #### 5 8410-2 #### [facility] CLIA [id number] [address] [place] [address] [place] MCH (RBC) [Entitic mass] 27.6 pg Normal 26.0-34.0 [facility] Comment on above: Order Comment: Speci men Type: BLOOD SPECIMEN [facility] Address: [address] [place], [place] [address] Performed By: #### 5 8410-2 #### [facility] CLIA [id number] [address] [place] [address] [place] [facility] MCHC (RBC) [Mass/Vol] 31.9 g/dL Normal 30.5-36.0 [facility] Comment on above: Order Comment: Speci men Type: BLOOD SPECIMEN [facility] Address: [address] [place] [address] Performed By: #### 5 8410-2 #### [facility] CLIA [id number] [address] [place] [address] [place] MCV (RBC) [Entitic vol] 86.4 fL Normal 80.0-100.0 [facility] Comment on above: Order Comment: Speci men Type: BLOOD SPECIMEN [facility] Address: [address] [place] [address] Performed By: #### 5 8410-2 #### [facility] [place] [id number] [address] [place] [address] [place] Nucleated RBC (Bld) [#/Vol] 10*3/uL Normal <0.01 [facility] Comment on above: Order Comment: Speci men Type: BLOOD SPECIMEN [facility] Address: [address] [place] [address] Performed By: #### 5 8410-2 #### [facility] [place] [id number] [address] [place] [address] [place] Platelet mean volume (Bld) [Entitic vol] 11.0 fL Normal 9.0-12.7 [facility] Comment on above: Order Comment: Speci men Type: BLOOD SPECIMEN [facility] Address: [address] [place] [address] Performed By: #### 5 8410-2 #### [facility] CLIA [id number] [address] [place] [address] [place] Platelets (Bld) [#/Vol] 266 10*3/uL Normal 150-400 [facility] Comment on above: Order Comment: Speci men Type: BLOOD SPECIMEN [facility] Address: [address] [place] [address] Performed By: #### 5 8410-2 #### [facility] CLIA [id number] [address] [place] [address] RBC (Bld) [#/Vol] 2.94 10*6/uL Low 4.20-6.00 [facility] Comment on above: Order Comment: Speci men Type: BLOOD SPECIMEN [facility] Address: [address] [place] [address] Performed By: #### 5 8410-2 #### [facility] CLIA [id number] [address] [place] [address] WBC (Bld) [#/Vol] 3.60 10*3/uL Low 3.70-11.00 [facility] Comment on above: Order Comment: Speci men Type: BLOOD SPECIMEN [facility] Address: [address] [place] [address] Performed By: #### 5 8410-2 #### [facility] CLIA [id number] [address] [place], [place] [address] [facility] THERAPY NTon 01-05-2022 THERAPY NT HNO ID: [id number] Author: Jon Calderón PTA Service: Physical Therapy Author Type: Cook Roast Type: Therapy (PT/OT/Speech/Resp) Filed: 01/05/2022 11:33 AM Note Text: ----- Attestation signed by Italia Morales PT at 01/06/2022 4:59 PM I reviewed and agree with the documentation corresponding to this therapy visit. SIGNATURE: Italia Morales PT DATE: January 06, 2022 TIME: 4:59 PM ----- Physical Therapy Treatment SERVICE DATE: 01/05/2022 SERVICE TIME: 1040 to 1110 ROOM: [place] [address] Recommended Discharge Disposition: Subacute/SNF Recommended Discharge Disposition [...] at Home Physical Assist at Home for: Cleaning;Laundry;Meals;Sa fety;Transportation;Shopp ing Supervision at Home due to: Decreased safety [...] CVA 2013, L5/S1 transforaminal lumbar interbody fusion 2/18/22, spinal stimulator, dyslipedemia, urinary retention,Anxiety, Obesity, Urinary Retention, L4-L5 surgery, suresh shoulder surgery, Suresh knee surgery Response to Therapy Interventions: Good participation in activities, Low activity tolerance, Needs frequent redirection or re-instruction Physical Therapy Problem List: Education Deficit;Safety Deficits;Decreased Activity Tolerance;Decreased Strength;Functional Mobility Impairment;Balance Impaired Treatment Interventions: Education;Energy Conservation Training;Joint Mobility;Strengthening;Fu nctional Mobility Training;Balance Training;Edema Management;Pain Management Modalities: Ice [...] shower Laundry: first floor Equipment Owned: Cane;Wheeled Walker;Methods Analyst;Grab Bars-Shower;ADL Kit;Elevated Toilet Seat;Shower Chair;Elastic Shoe Laces;Hospital Bed (PEr pt he does not have elevated toilet seat, sock aid etc.) Prior Functional Level: Required Assistance Assistance Required With: Cleaning;Laundry;Transpor tation Prior Functional Level Comments: Patient vague and questionable historian. Has hospital bed but sleeping on sofa with his dog. Unclear using walker as per pt initially for 2 weeks he did not use walker. Per pt spends most of his time laying down. Microwaves meals. Online orders from [employer]. Per pt he puts on his socks [...] Wheeled Wa (more content not included)... Normal [facility] Basic metabolic 2000 panelon 01-04-2022 Anion gap [Moles/Vol] 8 mmol/L Low 9-18 [facility] Comment on above: Order Comment: Speci men Type: BLOOD SPECIMEN [facility] Address: [address] [place] [address] Performed By: #### 2 4321-2 #### [facility] CLIA [id number] [address] [place] [address] [place] Calcium [Mass/Vol] 8.5 mg/dL Normal 8.5-10.2 [facility] Comment on above: Order Comment: Speci men Type: BLOOD SPECIMEN [facility] Address: [address] [place] [address] Performed By: #### 2 4321-2 #### [facility] CLIA [id number] [address] [place] [address] [place] Chloride [Moles/Vol] 103 mmol/L Normal 97-105 [facility] Comment on above: Order Comment: Speci men Type: BLOOD SPECIMEN [facility] Address: [address] [place] [address] Performed By: #### 2 4321-2 #### [facility] CLIA [id number] [address] [place], [place] [address] [place] CO2 [Moles/Vol] 28 mmol/L Normal 22-30 [facility] Comment on above: Order Comment: Speci men Type: BLOOD SPECIMEN [facility] Address: [address] [place] [address] Performed By: #### 2 4321-2 #### [facility] CLIA [id number] [address] [place], [place] [address] [place] Creatinine [Mass/Vol] 1.38 mg/dL High 0.73-1.22 [facility] Comment on above: Order Comment: Speci men Type: BLOOD SPECIMEN [facility] Address: [address] [place] [address] Performed By: #### 2 4321-2 #### [facility] CLIA [id number] [address] [place] [address] [place] ESTIMATED GLOMERULAR FILTRATION RATE 58 mL/min/1.73m??? Low >=60 [facility] Comment on above: Order Comment: Clarice conway Type: BLOOD SPECIMEN [facility] Address: [address] [place] [address] Result Comment: Jane mated Glomerular Filtration Rate [...] GFR. Performed By: #### 2 4321-2 #### [facility] CLIA [id number] [address] [place] [address] [place] Glucose [Mass/Vol] 106 mg/dL High 74-99 [facility] Comment on above: Order Comment: Clarice conway Type: BLOOD SPECIMEN [facility] Address: [address] [place] [address] Result Comment: The [place] Diabetes Association (ADA) provides guidance for cutoff [...] Standards of Medical Care in Diabetes 2016, [place] Diabetes Association. Diabetes Care. 2016.39(Suppl 1). Performed By: #### 2 4321-2 #### [facility] CLIA [id number] [address] [place] [address] [place] Potassium [Moles/Vol] 4.4 mmol/L Normal 3.7-5.1 [facility] Comment on above: Order Comment: Speci men Type: BLOOD SPECIMEN [facility] Address: [address] [place] [address] Performed By: #### 2 4321-2 #### [facility] IA [id number] [address] [place] [address] [place] Sodium [Moles/Vol] 139 mmol/L Normal 136-144 [facility] Comment on above: Order Comment: Speci men Type: BLOOD SPECIMEN [facility] Address: [address] [place] [address] Performed By: #### 2 4321-2 #### [facility] [place] [id number] [address] [place] [address] [place] [facility] Urea nitrogen [Mass/Vol] 11 mg/dL Normal 9-24 [facility] Comment on above: Order Comment: Speci men Type: BLOOD SPECIMEN [facility] Address: [address] [place] [address] Performed By: #### 2 4321-2 #### [facility] [place] [id number] [address] [place] [address] [place] CBC panel Auto (Bld)on 01-04 Erythrocyte distribution width (RBC) [Ratio] 15.8 % High 11.5-15.0 [facility] Comment on above: Order Comment: Speci men Type: BLOOD SPECIMENOrdering Facility: [facility] Address: [address] [place] [address] Performed By: #### 5 8410-2 ####JEWISH LABORATORYIA [id number] [address] [place] Hematocrit (Bld) [Volume fraction] 25.1 % Low 39.0-51.0 [facility] Comment on above: Order Comment: Speci men Type: BLOOD SPECIMENOrdering Facility: [facility] Address: [address] [place] [address] Performed By: #### 5 8410-2 ####JEW[facility] LABORATORYCLIA [id number] [address] [place] [address] [place] Hemoglobin (Bld) [Mass/Vol] 8.0 g/dL Low 13.0-17.0 [facility] Comment on above: Order Comment: Speci men Type: BLOOD SPECIMENOrdering Facility: [facility] Address: [address] [place] [address] Performed By: #### 5 8410-2 ####[facility] LABORATORYCLIA [id number] [address] [place] MCH (RBC) [Entitic mass] 27.8 pg Normal 26.0-34.0 [facility] Comment on above: Order Comment: Speci men Type: BLOOD SPECIMENOrdering Facility: [facility] Address: [address] [place] [address] Performed By: #### 5 8410-2 ####[facility] LABORATORYCLIA [id number] [address] [place] MCHC (RBC) [Mass/Vol] 31.9 g/dL Normal 30.5-36.0 [facility] Comment on above: Order Comment: Speci men Type: BLOOD SPECIMENOrdering Facility: [facility] Address: [address] [place] [address] Performed By: #### 5 8410-2 ####[facility] LABORATORYCLIA [id number] [address] [place] MCV (RBC) [Entitic vol] 87.2 fL Normal 80.0-100.0 [facility] Comment on above: Order Comment: Speci men Type: BLOOD SPECIMENOrdering Facility: [facility] Address: [address] [place], [place] [address] Performed By: #### 5 8410-2 ####J[facility] LABORATORYCLIA [id number] [place] [id number] [place] [facility] Nucleated RBC (Bld) [#/Vol] 10*3/uL Normal <0.01 [facility] Comment on above: Order Comment: Speci men Type: BLOOD SPECIMENOrdering Facility: [facility] Address: [address] [place], [place] [address] Performed By: #### 5 8410-2 ####[facility] LABORATORYCLIA [id number] [place] [address] [place] Platelet mean volume (Bld) [Entitic vol] 11.1 fL Normal 9.0-12.7 [facility] Comment on above: Order Comment: Speci men Type: BLOOD SPECIMENOrdering Facility: [facility] Address: [address] [place], [place] [address] Performed By: #### 5 8410-2 ####[facility] LABORATORYCLIA [id number] [address] [place] Platelets (Bld) [#/Vol] 205 10*3/uL Normal 150-400 [facility] Comment on above: Order Comment: Speci men Type: BLOOD SPECIMENOrdering Facility: [facility] Address: [address] [place], [place] [address] Performed By: #### 5 8410-2 ####[facility] LABORATORYCLIA [id number] [place] [id number] [place] RBC (Bld) [#/Vol] 2.88 10*6/uL Low 4.20-6.00 [facility] Comment on above: Order Comment: Speci men Type: BLOOD SPECIMENOrdering Facility: [facility] Address: [address] [place], [place] [address] Performed By: #### 5 8410-2 ####[facility] LABORATORYCLIA [id number] [place] [address] [place] WBC (Bld) [#/Vol] 4.55 10*3/uL Normal 3.70-11.00 [facility] Comment on above: Order Comment: Speci men Type: BLOOD SPECIMENOrdering Facility: [facility] Address: [address] [place] [address] [place] [address] Performed By: #### 5 8410-2 ####[facility] LABORATORYCLIA [id number] [place] [id number] [facility] [place] NURSING PROGon 01-04-2022 NURSING PROG HNO ID: [id number] Author: Venkatesh Cheney RN Service: Nursing Author Type: Registered Nurse Type: Nursing Progress Note Filed: 01/04/2022 5:39 PM Note Text: Assumed care of patient from RN, Aislinn. Patient is alert and oriented x3 and has no needs at this time. Will continue to monitor patient status. [facility] THERAPY NTon 01-04-2022 THERAPY NT HNO ID: [id number] Author: Jon Calderón PTA Service: Physical Therapy Author Type: Cook Roast Type: Therapy (PT/OT/Speech/Resp) Filed: 01/04/2022 3:56 PM Note Text: ----- Attestation signed by Italia Morales PT at 01/06/2022 4:59 PM I reviewed and agree with the documentation corresponding to this therapy visit. SIGNATURE: Italia Morales PT DATE: January 06, 2022 TIME: 4:59 PM ----- Physical Therapy Treatment SERVICE DATE: 01/04/2022 SERVICE TIME: 1310 to 1348 ROOM: [id number] Recommended Discharge Disposition: Subacute/SNF Recommended Discharge Disposition [...] at Home Physical Assist at Home for: Cleaning;Laundry;Meals;Sa fety;Transportation;Shopp ing Supervision at Home due to: Decreased safety [...] Impairment;Balance Impaired Treatment Interventions: Energy Conservation Training;Joint Mobility;Strengthening;Fu nctional Mobility Training;Balance Training;Modalities;Edema Management;Pain Management Modalities: Ice Home Environment Patient Lives With: Self/Alone;Other: See Comment (sister, mom and friends help) Assistance Available: PRN Entry To Home: Stairs;With Rail Number Of Stairs Into Home: 5 Number Of Stairs To Bed/Bath: 1st floor set up Stairs to Bed/Bath with: Unilateral Rail Tub/Shower Type: tub shower Laundry: first floor Equipment Owned: Cane;Wheeled Walker;Methods Analyst;Grab Bars-Shower;ADL Kit;Elevated Toilet Seat;Shower Chair;Elastic Shoe Laces;Hospital Bed (PEr pt he does not have elevated toilet seat, sock aid etc.) Prior Functional Level: Required Assistance Assistance Required With: Cleaning;Laundry;Transpor tation Prior Functional Level Comments: Patient vague and questionable historian. Has hospital bed but sleeping on sofa with his dog. Unclear using walker as per pt initially for 2 weeks he did not use walker. Per pt spends most of his time laying down. Microwaves meals. Online orders from [employer]. Per pt he puts on his socks [...] while turning he (more content not included)... [facility] ALLIED HEALTHon 01-03-2022 ALLIED HEALTH HNO ID: [id number] Author: RT Shay(R) Service: Radiology Author Type: Technologist Type: Allied [...] RT Shay(R) January 03, 2022 9:24 AM [facility] Basic metabolic 2000 panelon 01-03-2022 Anion gap [Moles/Vol] 7 mmol/L Low 9-18 [facility] Comment on above: Order Comment: Speci men Type: BLOOD SPECIMENOrdering Facility: [facility] Address: [address] [place] [address] Performed By: #### 2 4321-2 ####JEWISH LABORATORYCLIA [id number] [address] [place] [address] [place] Calcium [Mass/Vol] 8.4 mg/dL Low 8.5-10.2 [facility] Comment on above: Order Comment: Speci men Type: BLOOD SPECIMENOrdering Facility: [facility] Address: [address] [place] [address] Performed By: #### 2 4321-2 ####JEWISH LABORATORYCLIA [id number] [address] [place] [address] [place] Chloride [Moles/Vol] 104 mmol/L Normal 97-105 [facility] Comment on above: Order Comment: Speci men Type: BLOOD SPECIMENOrdering Facility: [facility] Address: [address] [place] [address] Performed By: #### 2 4321-2 ####JEWISH LABORATORYCLIA [id number] [address] [place] [address] [place] CO2 [Moles/Vol] 29 mmol/L Normal 22-30 [facility] Comment on above: Order Comment: Speci men Type: BLOOD SPECIMENOrdering Facility: [facility] Address: [address] [place] [address] Performed By: #### 2 4321-2 ####JEWISH LABORATORYCLIA [id number] [place] [address] [place] Creatinine [Mass/Vol] 1.23 mg/dL High 0.73-1.22 [facility] Comment on above: Order Comment: Speci men Type: BLOOD SPECIMENOrdering Facility: [facility] Address: [address] [place] [address] Performed By: #### 2 4321-2 ####JEWISH LABORATORYCLIA [id number] [place] [address] [place] ESTIMATED GLOMERULAR FILTRATION RATE 66 mL/min/1.73m??? Normal >=60 [facility] Comment on above: Order Comment: Clarice men Type: BLOOD SPECIMENOrdering Facility: [facility] Address: [address] [place] [address] Result Comment: Jane mated Glomerular Filtration Rate [...] actual GFR. Performed By: #### 2 4321-2 ####JEWISH LABORATORYCLIA [id number] [place] [id number] [place] Glucose [Mass/Vol] 110 mg/dL High 74-99 [facility] Comment on above: Order Comment: Lovei men Type: BLOOD SPECIMENOrdering Facility: [facility] Address: [address] [place] [address] Result Comment: The [place] Diabetes Association (ADA) provides guidance for cutoff [...] Standards of Medical Care in Diabetes 2016, [place] Diabetes Association. Diabetes Care. 2016.39(Suppl 1). Performed By: #### 2 4321-2 ####JEWISH LABORATORYCLIA [id number] [address] [place], [place] [address] [place] Potassium [Moles/Vol] 4.3 mmol/L Normal 3.7-5.1 [facility] Comment on above: Order Comment: Clarice conway Type: BLOOD SPECIMENOrdering Facility: [facility] Address: [address] [place] [address] Performed By: #### 2 4321-2 ####JEWISH LABORATORYCLIA [id number] [place] [address] [place] Sodium [Moles/Vol] 140 mmol/L Normal 136-144 [facility] Comment on above: Order Comment: Clarice conway Type: BLOOD SPECIMENOrdering Facility: [facility] Address: [address] [place] [address] Performed By: #### 2 4321-2 ####JEWISH LABORATORYCLIA [id number] [place] [id number] [place] Urea nitrogen [Mass/Vol] 10 mg/dL Normal 9-24 [facility] Comment on above: Order Comment: Clarice conway Type: BLOOD SPECIMENOrdering Facility: [facility] Address: [address] [place] [address] Performed By: #### 2 4321-2 ####JEWISH LABORATORYCLIA [id number] [place] [address] [place] CASE MANAGEMon 01-03-2022 CASE MANAGEM HNO ID: [id number] Author: Gracia Lr RN Service: ? Author Type: Registered Nurse Type: Care Mgt Progress Note Filed: 01/03/2022 2:34 PM Note Text: CARE MANAGEMENT PROGRESS NOTE SERVICE DATE: 01/03/2022 SERVICE TIME: 2:29 pm LOS: 3 days After many attempts over the last couple of days, I have now spoken to someone at [facility] where patient really wants to go, they have staffing issues in intake, state they will look at referral. Per rounds with [facility] this afternoon, surgeon wants patient here over the weekend. CM department will continue to follow. SIGNATURE: Gracia Lr RN PATIENT NAME: Mary Jimenez DATE: January 03, 2022 TIME: 2:29 PM PAGER/CONTACT #: [phone] [facility] CBC panel Auto (Bld)on 01-03 Erythrocyte distribution width (RBC) [Ratio] 15.9 % High 11.5-15.0 [facility] Comment on above: Order Comment: Speci men Type: BLOOD SPECIMENOrdering Facility: [facility] Address: [address] [place] [address] Performed By: #### 5 8410-2 ####JEWISH LABORATORYCLIA [id number] [address] STATES OF [facility] Hematocrit (Bld) [Volume fraction] 24.4 % Low 39.0-51.0 [facility] Comment on above: Order Comment: Speci men Type: BLOOD SPECIMENOrdering Facility: [facility] Address: [address] [place] [address] Performed By: #### 5 8410-2 ####JEWISH LABORATORYCLIA [id number] [place] [address] [place] Hemoglobin (Bld) [Mass/Vol] 7.6 g/dL Low 13.0-17.0 [facility] Comment on above: Order Comment: Speci men Type: BLOOD SPECIMENOrdering Facility: [facility] Address: [address] [place] [address] Performed By: #### 5 8410-2 ####JEWISH LABORATORYCLIA [id number] [address] [place] [address] MCH (RBC) [Entitic mass] 27.4 pg Normal 26.0-34.0 [facility] Comment on above: Order Comment: Speci men Type: BLOOD SPECIMENOrdering Facility: [facility] Address: [address] [place] [address] Performed By: #### 5 8410-2 ####JEWISH LABORATORYCLIA [id number] [address] [place] [address] MCHC (RBC) [Mass/Vol] 31.1 g/dL Normal 30.5-36.0 [facility] Comment on above: Order Comment: Speci men Type: BLOOD SPECIMENOrdering Facility: [facility] Address: [address] [place] [address] Performed By: #### 5 8410-2 ####JEWISH LABORATORYCLIA [id number] [address] STATES [facility] MCV (RBC) [Entitic vol] 88.1 fL Normal 80.0-100.0 [facility] Comment on above: Order Comment: Speci men Type: BLOOD SPECIMENOrdering Facility: [facility] Address: [address] [place] [address] Performed By: #### 5 8410-2 ####JEWISH LABORATORYCLIA [id number] [address] Nucleated RBC (Bld) [#/Vol] 10*3/uL Normal <0.01 [facility] Comment on above: Order Comment: Speci men Type: BLOOD SPECIMENOrdering Facility: [facility] Address: [address] [place] [address] Performed By: #### 5 8410-2 ####JEWISH LABORATORYCLIA [id number] [address] Platelet mean volume (Bld) [Entitic vol] 11.6 fL Normal 9.0-12.7 [facility] Comment on above: Order Comment: Speci men Type: BLOOD SPECIMENOrdering Facility: [facility] Address: [address] [place] [address] Performed By: #### 5 8410-2 ####JEWISH LABORATORYCLIA [id number] [place] [id number] [facility] [place] Platelets (Bld) [#/Vol] 177 10*3/uL Normal 150-400 [facility] Comment on above: Order Comment: Speci men Type: BLOOD SPECIMENOrdering Facility: [facility] Address: [address] [place] [address] Performed By: #### 5 8410-2 ####JEWISH LABORATORYCLIA [id number] [address] RBC (Bld) [#/Vol] 2.77 10*6/uL Low 4.20-6.00 [facility] Comment on above: Order Comment: Speci men Type: BLOOD SPECIMENOrdering Facility: [facility] Address: [address] [place] [address] Performed By: #### 5 8410-2 ####JEWISH LABORATORYCLIA [id number] [place] [address] [place] WBC (Bld) [#/Vol] 5.21 10*3/uL Normal 3.70-11.00 [facility] Comment on above: Order Comment: Speci men Type: BLOOD SPECIMENOrdering Facility: [facility] Address: [address] [place] [address] Performed By: #### 5 8410-2 ####JEWISH LABORATORYCLIA [id number] [place] [id number] [facility] CONSULT PROGon 01-03-2022 CONSULT PROG HNO ID: [id number] Author: King Albrecht PA-C Service: Pain Management Author Type: Physician Weapons And Tactics Instructor Type: Consult Progress Note Filed: 01/03/2022 8:49 AM Note Text: ----- Attestation signed by Albert Candelaria MD at 01/03/2022 9:32 AM I reviewed the pertinent patient history and agree with the RAIMUNDO's recommended plan for care. Albert Candelaria MD ----- INPATIENT PAIN MANAGEMENT PROGRESS NOTE Patient Name: [...] 88.1 MCH (more content not included)... [facility] THERAPY NTon 01-03-2022 THERAPY NT HNO ID: [id number] Author: Dionte Estrada, PT Service: Physical Therapy Author Type: Physical Therapist Type: Therapy (PT/OT/Speech/Resp) Filed: 01/03/2022 2:12 PM Note Text: Physical Therapy Treatment SERVICE DATE: 01/03/2022 SERVICE TIME: 1320 to 1349 ROOM: [place] [address] Recommended Discharge Disposition: Subacute/SNF Recommended Discharge Disposition [...] at Home Physical Assist at Home for: Cleaning;Laundry;Meals;Sa fety;Transportation;Shopp ing Supervision at Home due to: Decreased safety [...] Impairment;Balance Impaired Treatment Interventions: Education;Energy Conservation Training;Joint Mobility;Strengthening;Fu nctional Mobility Training;Balance Training;Neuromuscular Re-education Plan for next [...] shower Laundry: first floor Equipment Owned: Cane;Wheeled Walker;Methods Analyst;Grab Bars-Shower;ADL Kit;Elevated Toilet Seat;Shower Chair;Elastic Shoe Laces;Hospital Bed (PEr pt he does not have elevated toilet seat, sock aid etc.) Prior Functional Level: Required Assistance Assistance Required With: Cleaning;Laundry;Transpor tation Prior Functional Level Comments: Patient vague and questionable historian. Has hospital bed but sleeping on sofa with his dog. Unclear using walker as per pt initially for 2 weeks he did not use walker. Per pt spends most of his time laying down. Microwaves meals. Online orders from [employer]. Per pt he puts on his socks [...] Balance: Good Patien (more content not included)... [facility] THERAPY NT HNO ID: [id number] Author: Christine Recio OT/L Service: Occupational Therapy Author Type: Occupational Therapist Type: Therapy (PT/OT/Speech/Resp) Filed: 01/03/2022 10:53 AM Note Text: Occupational Therapy Treatment SERVICE DATE: 01/03/2022 SERVICE TIME: 1012 to 1037 ROOM: [place] [address] Recommended Discharge Disposition: Subacute/SNF Recommended Discharge Disposition Due to: Patient requires daily, facility-based rehabilitation from at least one discipline due to:;decline in functional status requiring daily skilled care;ongoing intervention of multiple therapy disciplines Anticipated Discharge Needs: Physical Assist at Home;Supervision at Home Physical Assist at Home for: Cleaning;Laundry;Meals;Sa fety;Transportation;Shopp ing Supervision at Home due to: Decreased safety [...] shower Laundry: first floor Equipment Owned: Cane;Wheeled Walker;Methods Analyst;Grab Bars-Shower;ADL Kit;Elevated Toilet Seat;Shower Chair;Elastic Shoe Laces;Hospital Bed (PEr pt he does not have elevated toilet seat, sock aid etc.) Prior Functional Level: Required Assistance Assistance Required With: Cleaning;Laundry;Transpor tation Prior Functional Level Comments: Patient vague and questionable historian. Has hospital bed but sleeping on sofa with his dog. Unclear using walker as per pt initially for 2 weeks he did not use walker. Per pt spends most of his time laying down. Microwaves meals. Online orders from [employer]. Per pt he puts on his socks [...] activity not attempted Learning/Educational Needs: Discharge Plan;Equipment;Family Education/Training;Functi onal Activities/Mobility;Plan of Care;Precautions;Rehabili tation Techniques and Procedures;Safety;Self Care Goals for Plan [...] living (ADL);Muscle Weaknes (more content not included)... [facility] XR LUMBAR 2V AP/LATon 2021 XR [...] disc spaces are maintained. IMPRESSION: Postoperative changes. Manager Field: OLI Transcribe Date/Time: Jan 03 2022 10:01A Dictated by : VEDA KIRKLAND DO This examination was interpreted and the report reviewed and electronically signed by: VEDA KIRKLAND DO on Jan 03 2022 10:10AM EST [id number] Normal [facility] Basic metabolic 2000 panelon 01-02-2022 Anion gap [Moles/Vol] 7 mmol/L Low 9-18 [facility] Comment on above: Order Comment: Speci men Type: BLOOD SPECIMENOrdering Facility: [facility] Address: [address] [place] [address] Performed By: #### 2 4321-2 ####JEWISH LABORATORYCLIA [id number] [place] [address] [place] Calcium [Mass/Vol] 8.4 mg/dL Low 8.5-10.2 [facility] Comment on above: Order Comment: Speci men Type: BLOOD SPECIMENOrdering Facility: [facility] Address: [address] [place] [address] Performed By: #### 2 4321-2 ####JEWISH LABORATORYCLIA [id number] [address] [place], [place] [address] [place] Chloride [Moles/Vol] 100 mmol/L Normal 97-105 [facility] Comment on above: Order Comment: Speci men Type: BLOOD SPECIMENOrdering Facility: [facility] Address: [address] [place] [address] Performed By: #### 2 4321-2 ####JEWISH LABORATORYCLIA [id number] [place] [address] [place] CO2 [Moles/Vol] 30 mmol/L Normal 22-30 [facility] Comment on above: Order Comment: Speci men Type: BLOOD SPECIMENOrdering Facility: [facility] Address: [address] [place] [address] Performed By: #### 2 4321-2 ####JEWISH LABORATORYCLIA [id number] [place] [address] [place] Creatinine [Mass/Vol] 1.22 mg/dL Normal 0.73-1.22 [facility] Comment on above: Order Comment: Speci men Type: BLOOD SPECIMENOrdering Facility: [facility] Address: [address] [place], [place] [address] Performed By: #### 2 4321-2 ####JEWISH LABORATORYCLIA [id number] [place] [address] [place] ESTIMATED GLOMERULAR FILTRATION RATE 67 mL/min/1.73m??? Normal >=60 [facility] Comment on above: Order Comment: Clarice conway Type: BLOOD SPECIMENOrdering Facility: [facility] Address: [address] [place] [address] Result Comment: Jane mated Glomerular Filtration Rate [...] actual GFR. Performed By: #### 2 4321-2 ####JEWISH LABORATORYCLIA [id number] [place] [address] [place] Glucose [Mass/Vol] 117 mg/dL High 74-99 [facility] Comment on above: Order Comment: Clarice conway Type: BLOOD SPECIMENOrdering Facility: [facility] Address: [address] [place] [address] Result Comment: The [place] Diabetes Association (ADA) provides guidance for cutoff [...] Standards of Medical Care in Diabetes 2016, [place] Diabetes Association. Diabetes Care. 2016.39(Suppl 1). Performed By: #### 2 4321-2 ####JEWISH LABORATORYCLIA [id number] [place] [address] [place] Potassium [Moles/Vol] 3.8 mmol/L Normal 3.7-5.1 [facility] Comment on above: Order Comment: Clarice conway Type: BLOOD SPECIMENOrdering Facility: [facility] Address: [address] [place], [place] [address] Performed By: #### 2 4321-2 ####JEWISH LABORATORYCLIA [id number] [place] [id number] [facility] Sodium [Moles/Vol] 137 mmol/L Normal 136-144 [facility] Comment on above: Order Comment: Speci men Type: BLOOD SPECIMENOrdering Facility: [facility] Address: [address] [place] [address] Performed By: #### 2 4321-2 ####JEWISH LABORATORYCLIA [id number] [place] [id number] [facility] Urea nitrogen [Mass/Vol] 10 mg/dL Normal 9-24 [facility] Comment on above: Order Comment: Speci men Type: BLOOD SPECIMENOrdering Facility: [facility] Address: [address] [place] [address] Performed By: #### 2 4321-2 ####JEWISH LABORATORYCLIA [id number] [place] [id number] [facility] CASE MANAGEMon 01-02-2022 CASE MANAGEM HNO ID: [id number] Author: Gracia Lr RN Service: ? Author Type: Registered Nurse Type: Care Mgt Progress Note Filed: 01/02/2022 4:22 PM Note Text: CARE MANAGEMENT PROGRESS NOTE SERVICE DATE: 01/02/2022 SERVICE TIME: 4:17 pm LOS: 2 days Have had no response from referral placed yesterday in [facility] to [facility], also left them (3) phone messages, sister said she knows someone there and she found out that intake person not there today, someone else covering. More referrals placed, and therapy told me he also could very well be ready to go home. Per [facility] , not ready for DC today. CM department will continue to follow. SIGNATURE: Gracia Lr RN PATIENT NAME: Mary Jimenez DATE: January 02, 2022 TIME: 4:17 PM PAGER/CONTACT #: [phone] [facility] CBC panel Auto (Bld)on 01-02 Erythrocyte distribution width (RBC) [Ratio] 16.3 % High 11.5-15.0 [facility] Comment on above: Order Comment: Speci men Type: BLOOD SPECIMENOrdering Facility: [facility] Address: [address] [place] [address] Performed By: #### 5 8410-2 ####JEWISH LABORATORYCLIA [id number] [address] [place] [address] Hematocrit (Bld) [Volume fraction] 26.4 % Low 39.0-51.0 [facility] Comment on above: Order Comment: Speci men Type: BLOOD SPECIMENOrdering Facility: [facility] Address: [address] [place] [address] Performed By: #### 5 8410-2 ####JEWISH LABORATORYCLIA [id number] [address] [place] Hemoglobin (Bld) [Mass/Vol] 8.1 g/dL Low 13.0-17.0 [facility] Comment on above: Order Comment: Speci men Type: BLOOD SPECIMENOrdering Facility: [facility] Address: [address] [place] [address] Performed By: #### 5 8410-2 ####JEWISH LABORATORYCLIA [id number] [place] [address] [place] MCH (RBC) [Entitic mass] 26.9 pg Normal 26.0-34.0 [facility] Comment on above: Order Comment: Speci men Type: BLOOD SPECIMENOrdering Facility: [facility] Address: [address] [place] [address] Performed By: #### 5 8410-2 ####JEWISH LABORATORYCLIA [id number] [address] [place] MCHC (RBC) [Mass/Vol] 30.7 g/dL Normal 30.5-36.0 [facility] Comment on above: Order Comment: Speci men Type: BLOOD SPECIMENOrdering Facility: [facility] Address: [address] Performed By: #### 5 8410-2 ####JEWISH LABORATORYCLIA [id number] [address] [place], [place] [address] [place] MCV (RBC) [Entitic vol] 87.7 fL Normal 80.0-100.0 [facility] Comment on above: Order Comment: Speci men Type: BLOOD SPECIMENOrdering Facility: [facility] Address: [address] [place], [place] [address] Performed By: #### 5 8410-2 ####JEWISH LABORATORYCLIA [id number] [address] [place] Nucleated RBC (Bld) [#/Vol] 10*3/uL Normal <0.01 [facility] Comment on above: Order Comment: Speci men Type: BLOOD SPECIMENOrdering Facility: [facility] Address: [address] [place], [place] [address] Performed By: #### 5 8410-2 ####JEWISH LABORATORYCLIA [id number] [place] [address] [place] Platelet mean volume (Bld) [Entitic vol] 11.4 fL Normal 9.0-12.7 [facility] Comment on above: Order Comment: Speci men Type: BLOOD SPECIMENOrdering Facility: [facility] Address: [address] Performed By: #### 5 8410-2 ####JEWISH LABORATORYCLIA [id number] [place] [id number] [place] Platelets (Bld) [#/Vol] 177 10*3/uL Normal 150-400 [facility] Comment on above: Order Comment: Speci men Type: BLOOD SPECIMENOrdering Facility: [facility] Address: [address] [place], [place] [address] Performed By: #### 5 8410-2 ####JEWISH LABORATORYCLIA [id number] [address] OF [facility] RBC (Bld) [#/Vol] 3.01 10*6/uL Low 4.20-6.00 [facility] Comment on above: Order Comment: Speci men Type: BLOOD SPECIMENOrdering Facility: [facility] Address: [address] [place] [address] Performed By: #### 5 8410-2 ####JEWISH LABORATORYCLIA [id number] [address] WBC (Bld) [#/Vol] 6.59 10*3/uL Normal 3.70-11.00 [facility] Comment on above: Order Comment: Speci men Type: BLOOD SPECIMENOrdering Facility: [facility] Address: [address] [place] [address] Performed By: #### 5 8410-2 ####JEWISH LABORATORYCLIA [id number] [address] CONSULTon 01-02-2022 CONSULT HNO ID: [id number] Author: King Albrecht PA-C Service: Pain Management Author Type: Physician Weapons And Tactics Instructor Type: Consults Filed: 01/02/2022 7:52 AM Note Text: ----- Attestation signed by Naeem Banks MD at 01/02/2022 8:16 AM Agree with above. ----- INPATIENT PAIN MANAGEMENT CONSULT Patient Name: Mary [...] (COLACE) 100 mg ORAL BID - HYDROmorphone FOOD PRODUCT INSPECTOR 0.5 mg/mL in NaCl 0.9% 100 mL INTRAVENOUS CONTINUOUS - cyclobenzaprine 10 mg tab(s) (FLEXERIL) 10 mg ORAL TID PRN - polyethylene glycol 3350 17 g packet (MIRALAX, GLYCOLAX) 17 g ORAL DAILY - COVID-19 vaccine (PF) 30 mcg injection (COMIRNATBizo) 30 mcg INTRAMUSCULAR ONCE (IMMUNIZATION) PHYSICAL EXAM: [...] 01/02/2022 30.7 RDW-C (more content not included)... [facility] CONSULT PROGon 01-02-2022 CONSULT PROG HNO ID: [id number] Author: Kumar Mock MD Service: General Internal Medicine Author Type: Physician Type: Consult Progress Note Filed: 01/02/2022 7:05 PM Note Text: CONSULT NOTE - INTERNAL MEDICINE PATIENT NAME: Mary Jimenez SERVICE DATE: 01/02/2022 SERVICE TIME: 7:03 PM ADMITTING PHYSICIAN: Loyda Steele MD SUBJECTIVE: Patient denies any CP, SOB, Dizziness, Palpitations, Abdominal Pain, Nausea or Vomiting. He is passing flatus, denies any urinary problems after Slade catheter was removed earlier His pain is [...] Kidney Disease) Stage 3, Gfr 30-59 Ml/Min ([facility]) Post-Operative Infection Obesity Delirium Back Pain Low [...] been on Plavix, he had CVA in 2013, to be resumed when cleared by surgery. [...] meaning may be extrapolated by contextual derivation [facility] THERAPY NTon 01-02-2022 THERAPY HNO ID: [id number] Author: Christine Recio OT/L Service: Occupational Therapy Author Type: Occupational Therapist Type: Therapy (PT/OT/Speech/Resp) Filed: 01/02/2022 3:20 PM Note Text: Occupational Therapy Treatment SERVICE DATE: 01/02/2022 SERVICE TIME: 1440 to 1510 ROOM: [id number] Recommended Discharge Disposition: Home OT Anticipated Discharge Needs: Physical Assist at Home;Supervision at Home Physical Assist at Home for: Cleaning;Laundry;Meals;Sa fety;Transportation;Shopp ing Supervision at Home due to: Decreased safety [...] shower Laundry: first floor Equipment Owned: Cane;Wheeled Walker;Methods Analyst;Grab Bars-Shower;ADL Kit;Elevated Toilet Seat;Shower Chair;Elastic Shoe Laces;Hospital Bed (PEr pt he does not have elevated toilet seat, sock aid etc.) Prior Functional Level: Required Assistance Assistance Required With: Cleaning;Laundry;Transpor tation Prior Functional Level Comments: Patient vague and questionable historian. Has hospital bed but sleeping on sofa with his dog. Unclear using walker as per pt initially for 2 weeks he did not use walker. Per pt spends most of his time laying down. Microwaves meals. Online orders from [employer]. Per pt he puts on his socks [...] activity not attempted Learning/Educational Needs: Discharge Plan;Equipment;Family Education/Training;Functi onal Activities/Mobility;Plan of Care;Precautions;Rehabili tation Techniques and Procedures;Safety;Self Care Goals for Plan [...] living (ADL);Muscle Weakness (generalized) Interventions Provided: Self Retirement Management (26553) Self Retirement Management (74881) Treatment Minutes: 30 $ Self Retirement Management (88424) Billed Units: 2 units Training AND education provided in: Activity adaption / compensatory strategies, [employer] (more content not included)... [facility] THERAPY NT HNO ID: [id number] Author: Nadira Maravilla PT Service: Physical Therapy Author Type: Physical Therapist Type: Therapy (PT/OT/Speech/Resp) Filed: 01/02/2022 2:54 PM Note Text: Physical Therapy Treatment SERVICE DATE: 01/02/2022 SERVICE TIME: 1345 to 1430 ROOM: [place] [address] Recommended Discharge Disposition: Acute Rehab Recommended Discharge [...] Needs: Undetermined Physical Assist at Home for: Cleaning;Laundry;Meals;St airs;Safety;Self Care;Shopping;Transportat ion Recommended Discharge Equipment: To Be Determined PT [...] Impairment;Balance Impaired Treatment Interventions: Education;Energy Conservation Training;Joint Mobility;Strengthening;Fu nctional Mobility Training;Balance Training;Neuromuscular Re-education Plan for next [...] shower Laundry: first floor Equipment Owned: Cane;Wheeled Walker;Methods Analyst;Grab Bars-Shower;ADL Kit;Elevated Toilet Seat;Shower Chair;Elastic Shoe Laces;Hospital Bed (PEr pt he does not have elevated toilet seat, sock aid etc.) Prior Functional Level: Required Assistance Assistance Required With: Cleaning;Laundry;Transpor tation Prior Functional Level Comments: Patient vague and questionable historian. Has hospital bed but sleeping on sofa with his dog. Unclear using walker as per pt initially for 2 weeks he did not use walker. Per pt spends most of his time laying down. Microwaves meals. Online orders from [employer]. Per pt he puts on his socks [...] Blank paez i (more content not included)... [facility] THERAPY NT HNO ID: [id number] Author: Christine Recio OT/Ida Service: Occupational Therapy Author Type: Occupational Therapist Type: Therapy (PT/OT/Speech/Resp) Filed: 01/02/2022 2:12 PM Note Text: OCCUPATIONAL THERAPY MISSED VISIT SERVICE DATE: 01/02/2022 SERVICE TIME: 1411 to 1411 ROOM: [place] [address] Patient not seen due to Another service at bedside (PT). Will follow up as able. SIGNATURE: MYRTLE Lyn PATIENT NAME: Mary Jimenez DATE: January 02, 2022 TIME: 2:12 PM [facility] ALLIED HEALTH 01-01-2022 ALLIED HEALTH HNO ID: [id number] Author: RT Ashu(Megan) Service: Radiology Author Type: [...] RT Ashu(R) January 01, 2022 3:04 PM Normal [facility] Basic metabolic 2000 panelon 01-01-2022 Anion gap [Moles/Vol] 8 mmol/L Low 9-18 [facility] Comment on above: Order Comment: Speci men Type: BLOOD SPECIMENOrdering Facility: [facility] Address: [address] [place] [address] Performed By: #### 2 4321-2 ####JEWISH LABORATORYCLIA [id number] [place] [address] [place] Calcium [Mass/Vol] 8.5 mg/dL Normal 8.5-10.2 [facility] Comment on above: Order Comment: Speci men Type: BLOOD SPECIMENOrdering Facility: [facility] Address: [address] [place] [address] Performed By: #### 2 4321-2 ####JEWISH LABORATORYCLIA [id number] [place] [id number] [place] Chloride [Moles/Vol] 99 mmol/L Normal 97-105 [facility] Comment on above: Order Comment: Speci men Type: BLOOD SPECIMENOrdering Facility: [facility] Address: [address] [place] [address] Performed By: #### 2 4321-2 ####JEWISH LABORATORYCLIA [id number] [place] [id number] [place] CO2 [Moles/Vol] 29 mmol/L Normal 22-30 [facility] Comment on above: Order Comment: Clarice conway Type: BLOOD SPECIMENOrdering Facility: [facility] Address: [address] [place] [address] Performed By: #### 2 4321-2 ####JEWISH LABORATORYCLIA [id number] [place] [id number] [place] Creatinine [Mass/Vol] 1.31 mg/dL High 0.73-1.22 [facility] Comment on above: Order Comment: Clarice men Type: BLOOD SPECIMENOrdering Facility: [facility] Address: [address] [place] [address] Performed By: #### 2 4321-2 ####JEWISH LABORATORYCLIA [id number] [address] [place] ESTIMATED GLOMERULAR FILTRATION RATE 62 mL/min/1.73m??? Normal >=60 [facility] Comment on above: Order Comment: Clarice men Type: BLOOD SPECIMENOrdering Facility: [facility] Address: [address] [place] [address] Result Comment: Jane mated Glomerular Filtration Rate [...] actual GFR. Performed By: #### 2 4321-2 ####JEWISH LABORATORYCLIA [id number] [place] [id number] [place] Glucose [Mass/Vol] 125 mg/dL High 74-99 [facility] Comment on above: Order Comment: Clarice conway Type: BLOOD SPECIMENOrdering Facility: [facility] Address: [address] [place] [address] Result Comment: The [place] Diabetes Association (ADA) provides guidance for cutoff [...] Standards of Medical Care in Diabetes 2016, [place] Diabetes Association. Diabetes Care. 2016.39(Suppl 1). Performed By: #### 2 4321-2 ####JEWISH LABORATORYCLIA [id number] [address] [place], [place] [address] [place] Potassium [Moles/Vol] 4.2 mmol/L Normal 3.7-5.1 [facility] Comment on above: Order Comment: Speci men Type: BLOOD SPECIMENOrdering Facility: [facility] Address: [address] [place] [address] Performed By: #### 2 4321-2 ####JEWISH LABORATORYCLIA [id number] [place] [id number] [place] Sodium [Moles/Vol] 136 mmol/L Normal 136-144 [facility] Comment on above: Order Comment: Clarice conway Type: BLOOD SPECIMENOrdering Facility: [facility] Address: [address] [place] [address] Performed By: #### 2 4321-2 ####JEWISH LABORATORYCLIA [id number] [place] [id number] [place] Urea nitrogen [Mass/Vol] 11 mg/dL Normal 9-24 [facility] Comment on above: Order Comment: Clarice men Type: BLOOD SPECIMENOrdering Facility: [facility] Address: [address] [place] [address] Performed By: #### 2 4321-2 ####JEWISH LABORATORYCLIA [id number] [place] [id number] [place] CBC panel Auto (Bld)on 01-01 Erythrocyte distribution width (RBC) [Ratio] 16.5 % High 11.5-15.0 [facility] Comment on above: Order Comment: Speci men Type: BLOOD SPECIMENOrdering Facility: [facility] Address: [address] [place] [address] Performed By: #### T SCR30 #### [place] [address] Hematocrit (Bld) [Volume fraction] 28.1 % Low 39.0-51.0 [facility] Comment on above: Order Comment: Speci men Type: BLOOD SPECIMENOrdering Facility: [facility] Address: [address] [place] [address] Performed By: #### T SCR30 #### [place] [address] Hemoglobin (Bld) [Mass/Vol] 8.9 g/dL Low 13.0-17.0 [facility] Comment on above: Order Comment: Speci men Type: BLOOD SPECIMENOrdering Facility: [facility] Address: [address] [place] [address] Performed By: #### T SCR30 #### [place] [address] MCH (RBC) [Entitic mass] 28.1 pg Normal 26.0-34.0 [facility] Comment on above: Order Comment: Speci men Type: BLOOD SPECIMENOrdering Facility: [facility] Address: [address] [place] [address] Performed By: #### T SCR30 #### [place] [address] MCHC (RBC) [Mass/Vol] 31.7 g/dL Normal 30.5-36.0 [facility] Comment on above: Order Comment: Speci men Type: BLOOD SPECIMENOrdering Facility: [facility] Address: [address] [place] [address] Performed By: #### T SCR30 #### [place] [address] MCV (RBC) [Entitic vol] 88.6 fL Normal 80.0-100.0 [facility] Comment on above: Order Comment: Speci men Type: BLOOD SPECIMENOrdering Facility: [facility] Address: [address] [place], [place] [id number] Performed By: #### T SCR30 #### [place] [address] Nucleated RBC (Bld) [#/Vol] 10*3/uL Normal <0.01 [facility] Comment on above: Order Comment: Speci men Type: BLOOD SPECIMENOrdering Facility: [facility] Address: [address] [place] [address] Performed By: #### T SCR30 #### [place] [address] Platelet mean volume (Bld) [Entitic vol] 11.4 fL Normal 9.0-12.7 [facility] Comment on above: Order Comment: Speci men Type: BLOOD SPECIMENOrdering Facility: [facility] Address: [address] [place] [address] Performed By: #### T SCR30 #### [place] [address] Platelets (Bld) [#/Vol] 202 10*3/uL Normal 150-400 [facility] Comment on above: Order Comment: Speci men Type: BLOOD SPECIMENOrdering Facility: [facility] Address: [address] [place], [place] [address] Performed By: #### T SCR30 #### [place] [address] RBC (Bld) [#/Vol] 3.17 10*6/uL Low 4.20-6.00 [facility] Comment on above: Order Comment: Speci men Type: BLOOD SPECIMENOrdering Facility: [facility] Address: [address] [place] [address] Performed By: #### T SCR30 #### [place] [address] WBC (Bld) [#/Vol] 8.29 10*3/uL Normal 3.70-11.00 [facility] Comment on above: Order Comment: Speci men Type: BLOOD SPECIMENOrdering Facility: [facility] Address: [address] [place] [address] Performed By: #### T SCR30 #### [place] [address] Erythrocyte distribution width (RBC) [Ratio] 16.7 % High 11.5-15.0 [facility] Comment on above: Order Comment: Speci men Type: BLOOD SPECIMENOrdering Facility: [facility] Address: [address] [place] [address] Performed By: #### T SCR30 #### [place] [address] Hematocrit (Bld) [Volume fraction] 29.6 % Low 39.0-51.0 [facility] Comment on above: Order Comment: Speci men Type: BLOOD SPECIMENOrdering Facility: [facility] Address: [address] [place] [address] Performed By: #### T SCR30 #### [place] [address] Hemoglobin (Bld) [Mass/Vol] 9.3 g/dL Low 13.0-17.0 [facility] Comment on above: Order Comment: Speci men Type: BLOOD SPECIMENOrdering Facility: [facility] Address: [address] [place] [address] Performed By: #### T SCR30 #### [place] [address] MCH (RBC) [Entitic mass] 27.8 pg Normal 26.0-34.0 [facility] Comment on above: Order Comment: Speci men Type: BLOOD SPECIMENOrdering Facility: [facility] Address: [address] [place] [address] Performed By: #### T SCR30 #### [place] [address] MCHC (RBC) [Mass/Vol] 31.4 g/dL Normal 30.5-36.0 [facility] Comment on above: Order Comment: Speci men Type: BLOOD SPECIMENOrdering Facility: [facility] Address: [address] [place] [address] Performed By: #### T SCR30 #### [place] [address] MCV (RBC) [Entitic vol] 88.4 fL Normal 80.0-100.0 [facility] Comment on above: Order Comment: Speci men Type: BLOOD SPECIMENOrdering Facility: [facility] Address: [address] [place] [address] Performed By: #### T SCR30 #### [place] [address] Nucleated RBC (Bld) [#/Vol] 10*3/uL Normal <0.01 [facility] Comment on above: Order Comment: Speci men Type: BLOOD SPECIMENOrdering Facility: [facility] Address: [address] [place] [address] Performed By: #### T SCR30 #### [place] [address] Platelet mean volume (Bld) [Entitic vol] 10.6 fL Normal 9.0-12.7 [facility] Comment on above: Order Comment: Speci men Type: BLOOD SPECIMENOrdering Facility: [facility] Address: [address] [place], [place] [id number] Performed By: #### T SCR30 #### [place] [address] Platelets (Bld) [#/Vol] 206 10*3/uL Normal 150-400 [facility] Comment on above: Order Comment: Speci men Type: BLOOD SPECIMENOrdering Facility: [facility] Address: [address] [place], [place] [id number] Performed By: #### T SCR30 #### [place] [address] RBC (Bld) [#/Vol] 3.35 10*6/uL Low 4.20-6.00 [facility] Comment on above: Order Comment: Speci men Type: BLOOD SPECIMENOrdering Facility: [facility] Address: [address] [place] [address] Performed By: #### T SCR30 #### [place] [address] WBC (Bld) [#/Vol] 8.74 10*3/uL Normal 3.70-11.00 [facility] Comment on above: Order Comment: Speci men Type: BLOOD SPECIMENOrdering Facility: [facility] Address: [address] [place] [address] Performed By: #### T SCR30 #### [place] [address] CONSULTon 01-01-2022 CONSULT HNO ID: [id number] Author: Kumar Mock MD Service: General Internal [...] or vomiting. Postoperatively he has a indwelling Slade catheter. He denies any recent fever or [...] (COLACE) 100 mg ORAL BID - HYDROmorphone FOOD PRODUCT INSPECTOR 0.5 mg/mL in NaCl 0.9% 100 mL [...] (98.2 ?F) Oral 120 16 99 % 12/31/21 2058 107/88 36.6 ?C (97.9 ?F) Oral (!) [...] Kidney Disease) Stage 3, Gfr 30-59 Ml/Min ([facility]) Post-Operative Infection Obesity Delirium Back Pain Low Back Pain Weakness of Left Lower Extremity Sleep Apnea Lumbar Pseudoarthrosis Obesity, Class II, Bmi 35-39.9 DATA: Diagnostic tests reviewed for today's visit: Most recent labs: CBC, Coags, BMP, Mg, Phos Recent Labs 01/01/22 0312 01/01/22 0121 WBC 8.29 8.74 HB 8.9* 9.3* HCT 28. (more content not included)... [facility] NURSING PROGon 01-01-2022 NURSING PROG HNO ID: [id number] Author: Vivian Redd RN Service: ? Author Type: Advance Clinical Nurse Type: Nursing Progress Note Filed: 01/01/2022 5:04 PM Note Text: Nursing Progress Note Patient Name: Mary Jimenez Patient Location: [address]/[id number] Daily Note: Reviewed isometrics and incentive spirometry which patient able to demonstrate. Reviewed DVT prophylaxis with early mobilization, compression hose, and compression pumps. Reviewed hospital poc and discharge plans. Reviewed the importance of good nutrition. patient aware of transition from the pain pump to oral pain medication tomorrow to discontinuing of slade. Patient states physical therapy is recommending possible rehab with patient. Plan is to continue tot mobilize, patient states understands they information given. This note was completed by: Vivian Redd [facility] THERAPY NTon 01-01-2022 THERAPY NT HNO ID: [id number] Author: Nadira Maravilla PT Service: Physical Therapy Author Type: Physical Therapist Type: Therapy (PT/OT/Speech/Resp) Filed: 01/01/2022 2:48 PM Note Text: Physical Therapy Evaluation SERVICE DATE: 01/01/2022 SERVICE TIME: 1300 to 1342 ROOM: [place] [address] Recommended Discharge Disposition: Acute Rehab Recommended Discharge [...] Needs: Undetermined Physical Assist at Home for: Cleaning;Laundry;Meals;St airs;Safety;Self Care;Shopping;Transportat ion Recommended Discharge Equipment: To Be Determined PT [...] Impairment;Balance Impaired Treatment Interventions: Education;Energy Conservation Training;Joint Mobility;Strengthening;Fu nctional Mobility Training;Balance Training;Neuromuscular Re-education Plan for next [...] shower Laundry: first floor Equipment Owned: Cane;Wheeled Walker;Methods Analyst;Grab Bars-Shower;ADL Kit;Elevated Toilet Seat;Shower Chair;Elastic Shoe Laces;Hospital Bed (PEr pt he does not have elevated toilet seat, sock aid etc.) Prior Functional Level: Required Assistance Assistance Required With: Cleaning;Laundry;Transpor tation Prior Functional Level Comments: Patient vague and questionable historian. Has hospital bed but sleeping on sofa with his dog. Unclear using walker as per pt initially for 2 weeks he did not use walker. Per pt spends most of his time laying down. Microwaves meals. Online orders from [employer]. Per pt he puts on his socks [...] speed;Flexed trunk posture;Michaela decreased;Improper distancing from assistive device;UE panchito (more content not included)... [facility] THERAPY NT HNO ID: [id number] Author: Christine Recio OT/L Service: Occupational Therapy Author Type: Occupational Therapist Type: Therapy (PT/OT/Speech/Resp) Filed: 01/01/2022 2:40 PM Note Text: Occupational Therapy Evaluation SERVICE DATE: 01/01/2022 SERVICE TIME: 1404 to 1429 ROOM: [id number] Recommended Discharge Disposition: Acute Rehab Recommended Discharge [...] shower Laundry: first floor Equipment Owned: Cane;Wheeled Walker;Methods Analyst;Grab Bars-Shower;ADL Kit;Elevated Toilet Seat;Shower Chair;Elastic Shoe Laces;Hospital Bed (PEr pt he does not have elevated toilet seat, sock aid etc.) Prior Functional Level: Required Assistance Assistance Required With: Cleaning;Laundry;Transpor tation Prior Functional Level Comments: Patient vague and questionable historian. Has hospital bed but sleeping on sofa with his dog. Unclear using walker as per pt initially for 2 weeks he did not use walker. Per pt spends most of his time laying down. Microwaves meals. Online orders from [employer]. Per pt he puts on his socks [...] activity not attempted Learning/Educational Needs: Discharge Plan;Equipment;Family Education/Training;Functi onal Activities/Mobility;Plan of Care;Precautions;Rehabili tation Techniques and Procedures;Safety;Self Care Goals for Plan of Care: Patient /Caregiver Goals: Go Home Goals: Patient will demonstrate progress with self-care, cognitive and/or coping needs identified to allow safe discharge to home with available support and/or physical assistance. Progress Toward Goals: Progressing as expected Rehab Potential: Good (more content not included)... [facility] VDUVLSon 01-01-2022 VDUVLS Non-Invasive Vascula r [facility] Lower Extremity Venous Duplex Bilateral/Complete Date [...] and small saphenous vein. Technologist: Gregorio Jay T, [facility] Ordering physician: CHRISTINE HATFIELD Interpreting physician: CHANEL Ford MD Final CC [facility] [facility] Image : [id number] See Link below for Image Normal [facility] XR LUMBAR 2V AP/LATon 2021 XR [...] in appearance. IMPRESSION: Postsurgical change. No complication. Manager Field: PSCAgustín Transcribe Date/Time: Jan 01 2022 3:32P Dictated by : DIONTE MANNING MD This examination was interpreted and the report reviewed and electronically signed by: DIONTE MANNING MD on Jan 01 2022 3:33PM EST [id number] [facility] ANES POSTPROC EVALon 022 ANES POSTPROC EVAL HNO ID: [id number] Author: David Og MD Service: Anesthesiology Author Type: Anesthesiologist Type: Anesthesia Postprocedure Evaluation Filed: 12/31/2021 4:56 PM Note Text: POST ANESTHESIA EVALUATION NOTE : 1960 Procedure Summary Date: 12/31/21 Room / Location: OR / DENY OR Anesthesia Start: 1105 Anesthesia Stop: 151 Procedures: ARTHDSIS POST/POSTEROLATERAL TECH W/POST INTERBODY TECH [...] December 31, 2021 TIME: 4:56 PM CSN: [id number] [facility] ANES PRE-OPon 12-31-2021 ANES PRE-OP HNO ID: [id number] Author: David Og MD Service: Anesthesiology Author [...] Lumbar) - Revision L4-pelvis Instrumented Fusion Location: OR / DENY OR Surgeons: Loyda [...] 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 Patient / Responsible Libertarian agrees to proceed: yes Patient / Surrogate [...] mg total d (more content not included)... [facility] BRIEF OP NOTon 12-31-2021 BRIEF OP NOT HNO ID: [id number] Author: Loyda Steele MD Service: Neurosurgery Author Type: Physician Type: Brief Op Note Filed: 01/02/2022 8:11 AM Note Text: BRIEF OPERATIVE / PROCEDURE NOTE LOG ID: [id number] SURGERY/PROCEDURE DATE: 12/31/2021 INCISION/PROCEDURE START TIME: 11:35 AM INCISION CLOSE/PROCEDURE END TIME: 2:55 PM SURGEON(S)/PROCEDURALIST( S) AND SURVEYOR MINE(S): Surgeon(s) and Role: * Loyda Steele MD [...] DATE: December 31, 2021 TIME: 2:45 PM [facility] NURSING PROGon 12-31-2021 NURSING PROG HNO ID: [id number] Author: Shelly Devries RN Service: Nursing Author Type: Registered Nurse Type: Nursing Progress Note Filed: 12/31/2021 6:54 PM Note Text: Nursing Progress Note Patient Name: Mary Jimenez Patient Location: [address]/[place] [address] Transfer Note: Patient transferred into room/unit [facility]- in stable condition. Actions taken: Patient and family oriented to 5D unit policies and procedures. Educated on falls risks, falls precautions, and use of call crouch prior to getting OOB. Patient resting in bed. Call light within reach. All needs met at this time. This note was completed by: Shelly Devries [facility] NURSING PROG HNO ID: [id number] Author: Krystyna Aleman RN Service: Nursing Author Type: Registered Nurse Type: Nursing Progress Note Filed: 12/31/2021 9:00 AM Note Text: Nursing Progress Note Patient Name: Mary Jimenez Patient Location: DENY-OPERATING ROOM POOL/DENY-OR POOL Daily Note:family wishes to speak to dr steele prior to surgery. Dr. Steele notified via text. This note was completed by: Krystyna Aleman [facility] OPERATIVE NOon 12-31-2021 OPERATIVE NO HNO ID: [id number] Author: Loyda Steele MD Service: Neurosurgery Author Type: Physician Type: Operative Report Filed: 01/02/2022 8:23 AM Note Text: OPERATIVE/PROCEDURE REPORT LOG ID: [id number] SURGERY/PROCEDURE DATE: 12/31/2021 INCISION/PROCEDURE START TIME: 11:35 AM INCISION CLOSE/PROCEDURE END TIME: 2:55 PM SURGEON(S)/PROCEDURALIST( S) AND SURVEYOR MINE(S): Surgeon(s) and Role: * Loyda Steele MD [...] Implant Name Type Inv. Item Serial No. Cutter Tender Lot No. LRB No. Used Action GRAFT BONE SUB 5CC DBM INERT REVERSE PHASE CARRIER GEL SYNTHETIC OSTEOSPARX - [id number] Bone GRAFT BONE SUB 5CC DBM INERT REVERSE PHASE CARRIER GEL SYNTHETIC OSTEOSPARX [id number] [employer]ounder [id number] N/A 1 Implanted SUBSTITUTE MASTERGRAFT BONE GRAFT MATRIX BLOCK EXTENSION VOID FILLER 5ML - [id number] Graft SUBSTITUTE MASTERGRAFT BONE GRAFT MATRIX BLOCK EXTENSION VOID FILLER 5ML MEDTRONIC 5211gameAMOR DANEK [id number] N/A 1 Implanted GRAFT INFUSE 14MM SMALL BOVINE COLLAGEN [id number] 23MM BONE ABSORBABLE SPONGE - [id number] Bone GRAFT INFUSE 14MM SMALL BOVINE COLLAGEN RHBMP-2 23MM BONE ABSORBABLE SPONGE [employer] SOFAMOR DANEK [id number] N/A 1 Implanted DRAINS: Subfascial drain COMPLICATIONS: None PARTICIPATION IN SURGERY/PROCEDURE: Loyda Steele, Gianluca Aguero and Monique Horta performed the opening, decompression, hardware placement and closure together. SIGNATURE: Loyda Steele MD PATIENT NAME: Mary Jimenez DATE: December 31, 2021 TIME: 2:34 PM [facility] SURGICAL PATHOLOGYon 022 CASE REPORT [facility] Comment on above: Order Comment: Speci men Type: DEVICE SPECIMENOrdering Facility: [facility] Address: [address] [place] [address] Result Comment: Surg ical Pathology Report Case: [id number] Authorizing Provider: Loyda Steele MD Collected: 12/31/2021 02:35 PM Ordering Location: [facility] Received: 12/31/2021 07:43 PM Operating Room Pathologist: Amanda Coleman MD Specimen: HARDWARE, hardware removed from spine Performed By: #### S ####[facility] LABCLIA [id number] [address] FINAL DIAGNOSIS [facility] Comment on above: Order Comment: Speci men Type: DEVICE SPECIMENOrdering Facility: [facility] Address: [address] [place] [address] Result Comment: Mariana fenton, hardware removal: - Surgical rods, screws and screw caps with no soft tissue present (gross examination only) POLINA/LINH 01/01/22 Performed By: #### S ####[facility] LABCLIA [id number] [address] FINAL PERFORMING LAB [facility] Comment on above: Order Comment: Speci men Type: DEVICE SPECIMENOrdering Facility: [facility] Address: [address] [place] [address] Result Comment: Diag nostic interpretation performed at [facility], [address] [place], [place] [id number] CLIA# [id number] [employer] Assistant: Krishna Srerato M.D. Performed By: #### S ####[facility] [id number] [address] GROSS DESCRIPTION A. HARDWARE. [facility] Comment on above: Order Comment: Speci men Type: DEVICE SPECIMENOrdering Facility: [facility] Address: [address] [place] [address] Result Comment: Rece ived in formalin labeled [...] to Dr. Coleman. Gross examination performed at [address] 01/01/22 1:41 PM Performed By: #### S ####[facility] [id number] [address] OF [place] XR LUMBAR 2V AP/LATon 2021 XR LUMBAR 2V AP/LAT * * *Final Report* * * DATE OF EXAM: Dec 31 2021 2:19PM PHILIP 5229 - XR LUMBAR 2V AP/LAT / [...] fracture. IMPRESSION: Postoperative changes as described above Manager Field: PSCB Transcribe Date/Time: Dec 31 2021 2:25P Dictated by : ALISE RANDLE MD This examination was interpreted and the report reviewed and electronically signed by: ALISE RANDLE MD on Dec 31 2021 2:27PM EST [id number] [facility] C reactive protein [Mass/vol ume] in Serum or PlasmaOrdered By: Yobany Nelson on 12-19-2021 CRP [Mass/Vol] 0.8 mg/dL 0.0-1.0 [facility] Basic metabolic 2000 panelon 12-17-2021 Anion gap [Moles/Vol] 14 mmol/L 9 - 18 mmol/L [facility] Calcium [Mass/Vol] 9.8 mg/dL 8.5 - 10. 2 mg/dL [facility] Chloride [Moles/Vol] 100 mmol/L 97 - 10 5 mmol/L [facility] CO2 [Moles/Vol] 25 mmol/L 22 - 30 mmol/L [facility] Creatinine [Mass/Vol] 1.46 mg/dL High 0.73 - 1.22 mg/dL [facility] Estimated Glomerular Filtration Rate 54 mL/min/1.73m Low >=60 mL/min/1.7 3m [facility] Glucose [Mass/Vol] 100 mg/dL High 74 - 99 mg/dL [facility] Potassium [Moles/Vol] 4.9 mmol/L 3.7 - 5.1 mmol/L [facility] Sodium [Moles/Vol] 139 mmol/L 136 - 144 mmol/L [facility] Urea nitrogen [Mass/Vol] 23 mg/dL 9 - 24 mg/dL [facility] CBC W Auto Differential pane l (Bld)on 12-17-2021 Abs Immature Gran <0.03 <0.10 k/uL [facility] Basophils (Bld) [#/Vol] 0.03 10*3/uL <0.11 k/uL [facility] Basophils/100 WBC (Bld) 0.5 % [facility] Differential cell count method Nom (Bld) Auto [facility] Eosinophils (Bld) [#/Vol] 0.21 10*3/uL <0.46 k/uL [facility] Eosinophils/100 WBC (Bld) 3.3 % [facility] Erythrocyte distribution width (RBC) [Ratio] 15.3 % High 11.5 - 15.0 % [facility] Hematocrit (Bld) [Volume fraction] 40.1 % 39.0 - 51.0 % [facility] Hemoglobin (Bld) [Mass/Vol] 13.0 g/dL 13.0 - 17.0 g/dL [facility] Immature Gran % 0.3 % [facility] Lymphocytes (Bld) [#/Vol] 1.31 10*3/uL 1.00 - 4.00 k/uL [facility] Lymphocytes/100 WBC (Bld) 20.8 % [facility] MCH (RBC) [Entitic mass] 26.9 pg 26.0 - 34.0 pg [facility] MCHC (RBC) [Mass/Vol] 32.4 g/dL 30.5 - 36.0 g/dL [facility] MCV (RBC) [Entitic vol] 83.0 fL 80.0 - 100.0 fL [facility] Monocytes (Bld) [#/Vol] 0.68 10*3/uL <0.87 k/uL [facility] Monocytes/100 WBC (Bld) 10.8 % [facility] Neutrophils (Bld) [#/Vol] 4.04 10*3/uL 1.45 - 7.50 k/uL [facility] Neutrophils/100 WBC (Bld) 64.3 % [facility] Nucleated RBC (Bld) [#/Vol] 10*3/uL <0.01 k/uL [facility] Nucleated RBC/100 WBC (Bld) [Ratio] 0.0 /100 WBC [facility] Platelet mean volume (Bld) [Entitic vol] 11.0 fL 9.0 - 12.7 fL [facility] Platelets (Bld) [#/Vol] 181 10*3/uL 150 - 400 k/uL [facility] RBC (Bld) [#/Vol] 4.83 10*6/uL 4.20 - 6.00 m/uL [facility] WBC (Bld) [#/Vol] 6.29 10*3/uL 3.70 - 11.00 k/uL [facility] C reactive protein [Mass/vol ume] in Serum or PlasmaOrdered By: Yobany Nelson on 12-12-2021 CRP [Mass/Vol] 0.6 mg/dL 0.0-1.0 [facility] C reactive protein [Mass/vol ume] in Serum or PlasmaOrdered By: Yobany Nelson on 12-05-2021 CRP [Mass/Vol] 1.1 mg/dL 0.0-1.0 [facility] CHEMISTRYOrdered By: SYSTEM SYSTEM on 11-20-2021 [...] by alternate method\Critical Result UD_OPIA:POS Called to CAITLYN MEDRANO AT by JATINDER BARAHONA And Read [...] activity/Vol] 75 [iU]/d Normal 21 - 98 Int._Unit/ L [facility] Remisol ALT No additional P-5'-P [Catalytic activity/Vol] 17 [iU]/d Normal 6 - 46 Int._Unit/ L [facility] Remisol Anion gap [Moles/Vol] 10 mmol/L Normal 6 - 16 mEq/L [facility] Remisol AST [Catalytic activity/Vol] 17 [iU]/d Normal 5 - 43 Int._Unit/ L [facility] Remisol Bilirubin [Mass/Vol] 0.8 mg/dL Normal [...] (S/P/Bld) [Vol rate/Area] 50 mL/min/1.73 m2 Low >=59mL/min /1.73 m2 FT Chem S GFR/1.73 sq M.predicted among non-blacks MDRD (S/P/Bld) [Vol rate/Area] 41 mL/min/1.73 m2 Low >=59mL/min /1.73 m2 FT [facility] S Globulin (S) [Mass/Vol] 3.4 g/dL Normal 1.4 - 4.0 gm/dL [facility] Remisol Glucose [Mass/Vol] 61 mg/dL Normal 55 [...] NEG [place] (11/20/21 10:51 PM) Normal [facility] Man Sero Rapid COV Int POS [place] (11/20/21 10:51 PM) Normal FT Man Sero SARS-CoV+SARS-CoV-2 (COVID-19) Ag IA.rapid Ql (Resp) Not Detected (11/20/21 10:51 PM) Normal Not Detected [facility] Man Sero No Panel Informationon 11-20 Blood Culture Charcoal No growth at 1 da y. Final to follow at 7 days. [facility] Blood Culture Charcoal No growth at 1 da y. Final to follow at 7 days. [facility] URINALYSISOrdered By: Jamie evans on 11-20-2021 [...] PM) Normal Negative [facility] UA Auto SS [place].plasma/[place] .RBC (Bld) [Mass ratio] 0-3 /HPF Normal [...] [facility] UA Auto SS Urobilinogen Qn (U) [id number] {Cristina'U}/dL Normal 0.0 - 1.0 EU/dL [facility] UA Auto SS WBC Auto Ql (U) Negative (11/20/21 7:42 PM) Normal Negative [facility] UA Auto SS WBC LM.HPF (Urine sed) [#/Area] 0-5 /HPF Normal 0-5/HPF [facility] UA Auto SS Basic Metabolic Panlon 08-20 Anion gap [Moles/Vol] 6 mmol/L Low 9-18 [facility] Comment on above: Performed By: #### C ETHAN, BMP ####[place] [phone] Calcium [Mass/Vol] 8.6 mg/dL Normal 8.5-10.2 [facility] Comment on above: Performed By: #### Jacqueline LONG, BMP ####[place] [phone] Chloride [Moles/Vol] 100 mmol/L Normal 97-105 [facility] Comment on above: Performed By: #### Jacqueline LONG, BMP ####[place] [phone] CO2 [Moles/Vol] 28 mmol/L Normal 22-30 [facility] Comment on above: Performed By: #### Jacqueline LONG, BMP ####[address] Creatinine [Mass/Vol] 1.27 mg/dL High 0.73-1.22 [facility] Comment on above: Performed By: #### Jacqueline LONG, BMP ####[address] eGFR- Amer. >60 Normal >59 [facility] Comment on above: Performed By: #### Jacqueline LONG, BMP ####[place] [phone] eGFR-All Other Races 57 . Low >59 [facility] Comment on above: Result Comment: eGFR (Estimated [...] Foundation website at kidney.org/professionals/kdoqi/gfr_calculator. Performed By: #### CHARU FIGUEROA ####[address] Glucose [Mass/Vol] 103 mg/dL High 74-99 [facility] Comment on above: Performed By: #### CHARU FIGUEROA ####[address] Potassium [Moles/Vol] 4.6 mmol/L Normal 3.7-5.1 [facility] Comment on above: Performed By: #### CHARU FIGUEROA ####[address] Sodium [Moles/Vol] 134 mmol/L Low 136-144 [facility] Comment on above: Performed By: #### Jacqueline LONG BMP ####[address] Urea nitrogen [Mass/Vol] 14 mg/dL Normal 9-24 [facility] Comment on above: Performed By: #### CHARU FIGUEROA ####[place] [phone] CASE MANAGEMon 08-20-2021 CASE MANAGEM HNO ID: [id number] Author: Gracia Lr RN Service: ? Author Type: Registered Nurse Type: Care Mgt Progress Note Filed: 08/20/2021 9:25 AM Note Text: CARE MANAGEMENT DISCHARGE NOTE SERVICE DATE: 08/20/2021 SERVICE TIME: 9:24 am LOS: 4 days Admission Date: 08/16/2021 DISCHARGE ARRANGEMENT (list agency and phone number) Discharge Arrangement: Home with Home Health (for PT) Provider Name: [facility] HANDOFF COMMUNICATION: Handoff to: (see summary of care) TRANSPORTATION ARRANGEMENTS: Transportation Arrangements: Car (with family member) ADDITIONAL CONTACT RESOURCES: Appointments for the Next 45 Days Saturday August 28, 2021 ?1:20 PM Post Op with Loyda Steele MD Neurosurgery ([facility]) [address] [address] [facility] [address] Discharge Information Row Name Admission (Current) from 08/16/[address] [facility] Agency [place] Needs Prior to Discharge: Ready for Discharge SIGNATURE: Gracia Lr RN PATIENT NAME: Mary Jimenez DATE: August 20, 2021 TIME: 9:24 AM PAGER/CONTACT #: [phone] Normal [facility] CBC and Differentialon 08-20 Abs Baso <0.03 Normal <0.11 [facility] Comment on above: Performed By: #### CHARU FIGUEROA ####[place] [id number] [address] Abs [place] 0.87 k/uL High <0.87 [facility] Comment on above: Performed By: #### CHARU FIGUEROA ####[place] [id number] [address] Abs Neut 4.76 k/uL Normal 1.45-7.50 [facility] Comment on above: Performed By: #### CHARU FIGUEROA ####[place] [id number] [address] Absolute nRBC <0.01 Normal <0.01 [facility] Comment on above: Performed By: #### Jacqueline LONG BMP ####[place] [id number] [address] Basophils/100 WBC (Bld) 0.3 % Normal [facility] Comment on above: Performed By: #### C BCDIF, BMP ####[place] [phone] DTYPE Auto Diff Normal [facility] Comment on above: Performed By: #### C BCDIF, BMP ####[place] [phone] Eosinophils (Bld) [#/Vol] 0.37 10*3/uL Normal <0.46 [facility] Comment on above: Performed By: #### C BCDIF, BMP ####[place] [phone] Eosinophils/100 WBC (Bld) 5.5 % [facility] Comment on above: Performed By: #### C BCDIF, BMP ####[place] [phone] Erythrocyte distribution width (RBC) [Ratio] 12.1 % Normal 11.5-15.0 [facility] Comment on above: Performed By: #### C BCDIF, BMP ####[place] [phone] Hematocrit (Bld) [Volume fraction] 28.8 % Low 39.0-51.0 [facility] Comment on above: Performed By: #### C BCDIF, BMP ####[place] [phone] Hemoglobin (Bld) [Mass/Vol] 9.5 g/dL Low 13.0-17.0 [facility] Comment on above: Performed By: #### C BCDIF, BMP ####[place] [phone] Lymphocytes (Bld) [#/Vol] 0.70 10*3/uL Low 1.00-4.00 [facility] Comment on above: Performed By: #### C BCDIF, BMP ####[place] [phone] Lymphocytes/100 WBC (Bld) 10.4 % Normal [facility] Comment on above: Performed By: #### C BCDIF, BMP ####[address] MCH 32.2 pG Normal 26.0-34.0 [facility] Comment on above: Performed By: #### C BCDIF, BMP ####[address] MCHC (RBC) [Mass/Vol] 33.0 g/dL Normal 30.5-36.0 [facility] Comment on above: Performed By: #### C BCDIF, BMP ####[address] MCV (RBC) [Entitic vol] 97.6 fL Normal 80.0-100.0 [facility] Comment on above: Performed By: #### C BCDIF, BMP ####[address] Monocytes/100 WBC (Bld) 12.9 % Normal [facility] Comment on above: Performed By: #### C BCDIF, BMP ####[address] Neutrophils/100 WBC (Bld) 70.9 % Normal [facility] Comment on above: Performed By: #### C BCDIF, BMP ####[address] NRBCs 0.0 /100 WBC Normal 0 [facility] Comment on above: Performed By: #### C BCDIF, BMP ####[address] Platelet mean volume (Bld) [Entitic vol] 11.3 fL Normal 9.0-12.7 [facility] Comment on above: Performed By: #### C BCDIF, BMP ####[address] Platelets (Bld) [#/Vol] 167 10*3/uL Normal 150-400 [facility] Comment on above: Performed By: #### C BCDIF, BMP ####[place] [id number] RBC (Bld) [#/Vol] 2.95 10*6/uL Low 4.20-6.00 [facility] Comment on above: Performed By: #### C BCDIF, BMP ####[address] [phone] WBC (Bld) [#/Vol] 6.72 10*3/uL Normal 3.70-11.00 [facility] Comment on above: Performed By: #### C BCDIF, BMP ####[address] [phone] CNDSon 08-20-2021 CNDS HNO ID: [id number] Author: Loyda Steele MD Service: Neurosurgery Author Type: Physician Type: Discharge Summary Filed: 09/08/2021 11:39 PM Note Text: DISCHARGE SUMMARY PATIENT NAME: Mary Jimenez Code [...] Loyda Steele MD Primary Care Provider: Jose Valdovinos DO My Medical Team Members: Treatment Team: [...] 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 [...] you become constipated, you may use any ivly-ntj-eekpgrq treatment such as Milk of Magnesia, Sennakot, [...] medication (see prescription) You should use an vejh-ppb-snchufb stool softener (Docusate sodium) and/or a fiber [...] Out FOLLOW-UP APPOINTMENTS ALREADY SCHEDULED WITH A [facility] PROVIDER: Future Appointments Date Time Provider Department Center 08/28/2021 1:20 PM Loyda Steele MD [facility] ALLERGIES Allergen Reactions - Penicillins Anaphylaxis - Latex Rash You may continue taking aspirin on 08/21/21 You may continue taking Plavix on 08/26/21 DISCHARGE MEDICATION: Current Discharge Medication List START taking these medications (more content not included)... [facility] NURSING PROGon 08-20-2021 NURSING PROG HNO ID: [id number] Author: Vivian Redd RN Service: ? Author Type: Advance Clinical Nurse Type: Nursing Progress Note Filed: 08/20/2021 11:13 AM Note Text: Nursing Progress Note Patient Name: Mary Jimenez Patient Location: [address]/[id number] Daily Note: Reviewed discharge instructions for spine [...] This note was completed by: Vivian Redd [facility] NURSING PROG HNO ID: [id number] Author: Vibha Billings RN Service: ? Author Type: Registered Nurse Type: Nursing Progress Note Filed: 08/20/2021 9:51 AM Note Text: Nursing Progress Note Patient Name: Mary Jimenez Patient Location: [address] Assumed care of patient. Report received from Ramandeep Bonilla RN. Patient resting comfortably in bed at this time, pain under control, VSS. Call light within reach and working. All needs met at this time. This note was completed by: Vibha Billings [facility] THERAPY NTon 08-20-2021 THERAPY NT HNO ID: [id number] Author: Jessi Scanlon OTR/L Service: Occupational Therapy Author Type: Occupational Therapist Type: Therapy (PT/OT/Speech/Resp) Filed: 08/20/2021 10:05 AM Note Text: OCCUPATIONAL THERAPY MISSED VISIT SERVICE DATE: 08/20/2021 SERVICE TIME: 1000 to 1000 ROOM: [place] [address] Patient not seen due to Declined. Pt dressed upon arrival and stated, this is my fourth spine surgery, I know what I'm doing by now. Sister at bedside, reviewed spine precautions and answered all questions and concerns. Pt is safe to d/c home via family car from an OT standpoint. SIGNATURE: MEMO Whitt/L PATIENT NAME: Mary Jimenez DATE: August 20, 2021 TIME: 10:03 AM [facility] 08-19-2021 ALL[facility] HNO ID: [id number] Author: RT Disha(R) Service: Radiology Author Type: [...] RT Disha(R) August 19, 2021 10:39 AM [facility] Basic Metabolic Panlon 08-19 Anion gap [Moles/Vol] 10 mmol/L Normal 03-16 [facility] Comment on above: Performed By: #### C BCDIF, BMP ####[facility] [phone] Calcium [Mass/Vol] 8.4 mg/dL Low 8.5-10.2 [facility] Comment on above: Performed By: #### C BCDIF, BMP ####[place] [phone] Chloride [Moles/Vol] 98 mmol/L Normal 97-105 [facility] Comment on above: Performed By: #### C BCDIF, BMP ####[place] [phone] CO2 [Moles/Vol] 26 mmol/L Normal 22-30 [facility] Comment on above: Performed By: #### C BCDIF, BMP ####[place] [phone] Creatinine [Mass/Vol] 1.40 mg/dL High 0.73-1.22 [facility] Comment on above: Performed By: #### C BCDIF, BMP ####[place] [phone] eGFR- Amer. >60 Normal >59 [facility] Comment on above: Performed By: #### C BCDIF, BMP ####[place] [phone] eGFR-All Other Races 51 . Low >59 [facility] Comment on above: Result Comment: eGFR (Estimated [...] kidney.org/professionals/kdoqi/gfr_calculator. Performed By: #### C BCDIF, BMP ####[place] [address] [place] [phone] Glucose [Mass/Vol] 109 mg/dL High 74-99 [facility] Comment on above: Performed By: #### C BCDIF, BMP ####[facility] [place] [phone] Potassium [Moles/Vol] 3.9 mmol/L Normal 3.7-5.1 [facility] Comment on above: Performed By: #### C BCDIF, BMP ####[place] [address] [place] [phone] Sodium [Moles/Vol] 134 mmol/L Low 136-144 [facility] Comment on above: Performed By: #### C BCDIF, BMP ####[place] [address] [place] [phone] Urea nitrogen [Mass/Vol] 16 mg/dL Normal 9-24 [facility] Comment on above: Performed By: #### C BCDIF, BMP ####[place] [phone] CASE MANAGEMon 08-19-2021 CASE MANAGEM HNO ID: [id number] Author: Gracia Lr RN Service: ? Author [...] 19, 2021 TIME: 12:39 PM PAGER/CONTACT #: [phone] Normal [facility] CBC and Differentialon 08-19 Abs Baso 0.04 k/uL Normal <0.11 [facility] Comment on above: Performed By: #### C BCDIF, BMP ####[place] [phone] Abs [place] 0.85 k/uL Normal <0.87 [facility] Comment on above: Performed By: #### C BCDIF, BMP ####[place] [phone] Abs Neut 4.46 k/uL Normal 1.45-7.50 [facility] Comment on above: Performed By: #### C BCDIF, BMP ####[place] [phone] Absolute nRBC <0.01 Normal <0.01 [facility] Comment on above: Performed By: #### C BCABBIE, BMP ####[place] [phone] Basophils/100 WBC (Bld) 0.6 % [facility] Comment on above: Performed By: #### C ETHNA, BMP ####[place] [phone] DTYPE Auto Diff Normal [facility] Comment on above: Performed By: #### C ETHAN, BMP ####[place] [phone] Eosinophils (Bld) [#/Vol] 0.27 10*3/uL Normal <0.46 [facility] Comment on above: Performed By: #### C BCDIF, BMP ####[place] [phone] Eosinophils/100 WBC (Bld) 4.3 % [facility] Comment on above: Performed By: #### C BCDIF, BMP ####[place] [phone] Erythrocyte distribution width (RBC) [Ratio] 12.1 % Normal 11.5-15.0 [facility] Comment on above: Performed By: #### C BCDIRakesh, BMP ####[place] [phone] Hematocrit (Bld) [Volume fraction] 28.9 % Low 39.0-51.0 [facility] Comment on above: Performed By: #### C ETHAN, BMP ####[place] [phone] Hemoglobin (Bld) [Mass/Vol] 9.7 g/dL Low 13.0-17.0 [facility] Comment on above: Performed By: #### C ETHAN, BMP ####[place] [phone] Lymphocytes (Bld) [#/Vol] 0.61 10*3/uL Low 1.00-4.00 [facility] Comment on above: Performed By: #### C BCABBIE, BMP ####[place] [phone] Lymphocytes/100 WBC (Bld) 9.8 % [facility] Comment on above: Performed By: #### C ETHAN, BMP ####[address] MCH 32.4 pG Normal 26.0-34.0 [facility] Comment on above: Performed By: #### C ETHAN, BMP ####[address] MCHC (RBC) [Mass/Vol] 33.6 g/dL Normal 30.5-36.0 [facility] Comment on above: Performed By: #### C BCDIF, BMP ####[address] MCV (RBC) [Entitic vol] 96.7 fL Normal 80.0-100.0 [facility] Comment on above: Performed By: #### C BCDIF, BMP ####[address] Monocytes/100 WBC (Bld) 13.6 % Normal [facility] Comment on above: Performed By: #### C BCABBIE, BMP ####[address] Neutrophils/100 WBC (Bld) 71.7 % Normal [facility] Comment on above: Performed By: #### C ETHAN, BMP ####[address] NRBCs 0.0 /100 WBC Normal 0 [facility] Comment on above: Performed By: #### C ETHAN, BMP ####[address] Platelet mean volume (Bld) [Entitic vol] 11.1 fL Normal 9.0-12.7 [facility] Comment on above: Performed By: #### C ETHAN, BMP ####[address] Platelets (Bld) [#/Vol] 130 10*3/uL Low 150-400 [facility] Comment on above: Performed By: #### C ETHAN, BMP ####[address] RBC (Bld) [#/Vol] 2.99 10*6/uL Low 4.20-6.00 [facility] Comment on above: Performed By: #### C ETHAN, BMP ####[address] WBC (Bld) [#/Vol] 6.23 10*3/uL Normal 3.70-11.00 [facility] Comment on above: Performed By: #### C ETHAN, BMP ####[address] OPERATIVE NOon 08-19-2021 OPERATIVE NO HNO ID: [id number] Author: Loyda Steele MD Service: Neurosurgery Author Type: Physician Type: Operative Report Filed: 08/19/2021 5:38 AM Note Text: OPERATIVE/PROCEDURE REPORT LOG ID: [id number] SURGERY/PROCEDURE DATE: 08/16/2021 INCISION/PROCEDURE START TIME: 11:17 AM INCISION CLOSE/PROCEDURE END TIME: 3:26 PM SURGEON(S)/PROCEDURALIST( S) AND SURVEYOR MINE(S): Surgeon(s) and Role: * Loyda Steele MD - Primary Physician Weapons [employer] Tactics Instructor: Christine Gutierrez PA-C SURGERY/PROCEDURE(S): L5/S1 TLIF ANESTHESIA: [...] at a expandable cage 10-16 mm. The [employer] system was the instrumentation system used. Local [...] drill was used to make a small spray pilot hole. The gear shift along with [...] Implant Name Type Inv. Item Serial No. Cutter Tender Lot No. LRB No. Used Action GRAFT INFUSE 14MM SMALL BOVINE COLLAGEN RHBMP-2 23MM BONE ABSORBABLE SPONGE - [id number] Bone GRAFT INFUSE 14MM SMALL BOVINE COLLAGEN RHBMP-2 23MM BONE ABSORBABLE SPONGE [employer] [id number] N/A 1 Implanted Prolift expandable spacer Implant SSG-[id number]-KIND IMPLANT JANETT [id number] N/A 1 Implanted SCREW JORDANA 3 TITANIUM SET CORNELL SPINE - [id number] Implant SCREW JORDANA 3 TITANIUM SET CORNELL SPINE JANETT SPINE N/A 5 Implanted SCREW JORDANA 3 VARGAS 6.5MM 50MM BONE POLYAXIAL NONSTERILE SPINE - [id number] Screw SCREW JORDANA 3 VARGAS 6.5MM 50MM BONE POLYAXIAL NONSTERILE SPINE JANETT SPINE N/A 2 Implanted LAMONTE JORDANA 3 6MM TITANIUM 50MM SPINAL RADIOLUCENT - [id number] Lamonte LAMONTE JORDANA 3 6MM TITANIUM 50MM SPINAL RADIOLUCENT JANETT SPINE N/A 1 Implanted LAMONTE JORDANA 3 6MM TITANIUM 70MM SPINAL RADIOLUCENT - [id number] Lamonte LAMONTE JORDANA 3 6MM TITANIUM 70MM SPINAL RADIOLUCENT JANETT SPINE N/A 1 Implanted DRAINS: Subfascial drain COMPLICATIONS: None PARTICIPATION I (more content not included)... [facility] THERAPY NTon 08-19-2021 THERAPY NT HNO ID: [id number] Author: Dionte Estrada, PT Service: Physical Therapy Author Type: Physical Therapist Type: Therapy (PT/OT/Speech/Resp) Filed: 08/19/2021 11:31 AM Note Text: Physical Therapy Treatment SERVICE DATE: 08/19/2021 SERVICE TIME: 1054 to 1118 ROOM: [place] [address] Recommended Discharge Disposition: Home PT Recommended Discharge [...] at Home Physical Assist at Home for: Transfers;Cleaning;Laundr y;Meals;Stairs;Safety;Kerri f Care;Shopping;Transportat ion Recommended Discharge Equipment: No equipment needs anticipated [...] Activity Tolerance Treatment Interventions: Energy Conservation Training;Joint Mobility;Strengthening;Fu nctional Mobility Training;Balance Training Plan for next visit: [...] chair Laundry: main floor Equipment Owned: Cane;Wheeled Walker;Methods Analyst;Grab Bars-Shower;ADL Kit;Elevated Toilet Seat;Extended tub bench Prior [...] progress with func (more content not included)... [facility] XR LUMBAR 2V AP/LATon 2021 XR [...] IMPRESSION: Postoperative findings as given in results. Manager Field: OLI Transcribe Date/Time: Aug 19 2021 11:14A Dictated by : SHARMIN PEREZ MD This examination was interpreted and the report reviewed and electronically signed by: SHARMIN PEREZ MD on Aug 19 2021 11:18AM EST [id number] [facility] Basic Metabolic Panlon 08-18 Anion gap [Moles/Vol] 10 mmol/L Normal 9-18 [facility] Comment on above: Performed By: #### B KAROL CBC ####[facility] [phone] Calcium [Mass/Vol] 8.7 mg/dL Normal 8.5-10.2 [facility] Comment on above: Performed By: #### B KAROL CBC ####[facility] Chloride [Moles/Vol] 98 mmol/L Normal 97-105 [facility] Comment on above: Performed By: #### B MP, CBC ####[address] CO2 [Moles/Vol] 28 mmol/L Normal 22-30 [facility] Comment on above: Performed By: #### B MP, CBC ####[address] Creatinine [Mass/Vol] 1.33 mg/dL High 0.73-1.22 [facility] Comment on above: Performed By: #### B MP, CBC ####[address] eGFR- Amer. >60 Normal >59 [facility] Comment on above: Performed By: #### B KAROL, CBC ####[address] eGFR-All Other Races 54 . Low >59 [facility] Comment on above: Result Comment: eGFR (Estimated [...] Foundation website at [email or web address]/professionals/[email or web address]/gfr_[email or web address]. Performed By: #### B MP, CBC ####[address] Glucose [Mass/Vol] 109 mg/dL High 74-99 [facility] Comment on above: Performed By: #### B MP, CBC ####[address] Potassium [Moles/Vol] 4.2 mmol/L Normal 3.7-5.1 [facility] Comment on above: Performed By: #### B MP, CBC ####[address] Sodium [Moles/Vol] 136 mmol/L Normal 136-144 [facility] Comment on above: Performed By: #### B MP, CBC ####[place] [phone] Urea nitrogen [Mass/Vol] 13 mg/dL Normal 9-24 [facility] Comment on above: Performed By: #### B MP, CBC ####[place] [phone] CBCon 08-18-2021 Absolute nRBC <0.01 Normal <0.01 [facility] Comment on above: Performed By: #### B MP, CBC ####[address] Erythrocyte distribution width (RBC) [Ratio] 12.3 % Normal 11.5-15.0 [facility] Comment on above: Performed By: #### B MP, CBC ####[address] Hematocrit (Bld) [Volume fraction] 31.9 % Low 39.0-51.0 [facility] Comment on above: Performed By: #### B MP, CBC ####[address] Hemoglobin (Bld) [Mass/Vol] 10.4 g/dL Low 13.0-17.0 [facility] Comment on above: Performed By: #### B MP, CBC ####[address] MCH 32.3 pG Normal 26.0-34.0 [facility] Comment on above: Performed By: #### B MP, CBC ####[address] MCHC (RBC) [Mass/Vol] 32.6 g/dL Normal 30.5-36.0 [facility] Comment on above: Performed By: #### B MP, CBC ####[address] MCV (RBC) [Entitic vol] 99.1 fL Normal 80.0-100.0 [facility] Comment on above: Performed By: #### B MP, CBC ####[address] Platelet mean volume (Bld) [Entitic vol] 11.6 fL Normal 9.0-12.7 [facility] Comment on above: Performed By: #### B MP, CBC ####[address] Platelets (Bld) [#/Vol] 133 10*3/uL Low 150-400 [facility] Comment on above: Performed By: #### B MP, CBC ####[address] RBC (Bld) [#/Vol] 3.22 10*6/uL Low 4.20-6.00 [facility] Comment on above: Performed By: #### B MP, CBC ####[address] WBC (Bld) [#/Vol] 8.49 10*3/uL Normal 3.70-11.00 [facility] Comment on above: Performed By: #### B MP, CBC ####[address] THERAPY NTon 08-18-2021 THERAPY NT HNO ID: [id number] Author: Jon Calderón PTA Service: Physical Therapy Author Type: [employer] Type: Therapy (PT/OT/Speech/Resp) Filed: 08/18/2021 5:59 PM Note Text: ----- Attestation signed by Italia Morales PT at 08/19/2021 3:13 PM I reviewed and agree with the documentation corresponding to this therapy visit. SIGNATURE: Italia Morales PT DATE: August 19, 2021 TIME: 3:13 PM ----- Physical Therapy Treatment SERVICE DATE: 08/18/2021 SERVICE TIME: 1420 to 1500 ROOM: [id number] Recommended Discharge Disposition: Home PT Recommended Discharge [...] at Home Physical Assist at Home for: Transfers;Cleaning;Laundr y;Meals;Stairs;Safety;Kerri f Care;Shopping;Transportat ion Recommended Discharge Equipment: To Be Determined PT 6 Clicks Score: 22 Pt demos improved endurance/able to manage steps..patient debating home vs homecare but recommend homecare to improve strength/endurance/improv e stairclimbing at home Precautions/Activity Restrictions: Spine Current [...] Activity Tolerance Treatment Interventions: Energy Conservation Training;Joint Mobility;Strengthening;Fu nctional Mobility Training;Balance Training Home Environment Patient Lives With: Self/Alone Assistance Available: None Entry To Home: Stairs;With Rail (suresh HR) Number Of Stairs Into Home: 5 Number Of Stairs To Bed/Bath: 15 Stairs to Bed/Bath with: Unilateral Rail Tub/Shower Type: tub shower with grab bar and shower chair Laundry: main floor Equipment Owned: Cane;Wheeled Walker;Methods Analyst;Grab Bars-Shower;ADL Kit;Elevated Toilet Seat;Extended tub bench Prior [...] needs identified.;Patient rob (more content not included)... [facility] THERAPY NT HNO ID: [id number] Author: Chalo Galvan OT/Ida Service: Occupational Therapy Author Type: Occupational Therapist Type: Therapy (PT/OT/Speech/Resp) Filed: 08/18/2021 4:58 PM Note Text: OCCUPATIONAL THERAPY MISSED VISIT SERVICE DATE: 08/18/2021 SERVICE TIME: 1548 to 1549 ROOM: [place] [address] Patient not seen due to Declined. Patient [...] to discharge as able. SIGNATURE: Chalo Galvan OT/Ida PATIENT NAME: Mary Jimenez DATE: August 18, 2021 TIME: 4:57 PM [facility] Basic Metabolic Panlon 08-17 Anion gap [Moles/Vol] 7 mmol/L Low 9-18 [facility] Comment on above: Performed By: #### C BARBY BMP ####[address] Calcium [Mass/Vol] 8.3 mg/dL Low 8.5-10.2 [facility] Comment on above: Performed By: #### C BARBY BMP ####[place] [id number] [address] [phone] Chloride [Moles/Vol] 98 mmol/L Normal 97-105 [facility] Comment on above: Performed By: #### C BARBY BMP ####[place] [id number] [address] [phone] CO2 [Moles/Vol] 29 mmol/L Normal 22-30 [facility] Comment on above: Performed By: #### C BARBY, BMP ####[address] Creatinine [Mass/Vol] 1.25 mg/dL High 0.73-1.22 [facility] Comment on above: Performed By: #### C BARBY, BMP ####[address] eGFR- Amer. >60 Normal >59 [facility] Comment on above: Performed By: #### C BARBY, BMP ####[address] eGFR-All Other Races 59 . Low >59 [facility] Comment on above: Result Comment: eGFR (Estimated [...] kidney.[email or web address]/[email or web address]/gfr_calculator. Performed By: #### C BARBY, BMP ####[place] [address] Glucose [Mass/Vol] 135 mg/dL High 74-99 [facility] Comment on above: Performed By: #### C BC, BMP ####[address] Potassium [Moles/Vol] 4.2 mmol/L Normal 3.7-5.1 [facility] Comment on above: Performed By: #### C BC, BMP ####[address] Sodium [Moles/Vol] 134 mmol/L Low 136-144 [facility] Comment on above: Performed By: #### C BC, BMP ####[address] Urea nitrogen [Mass/Vol] 16 mg/dL Normal 9-24 [facility] Comment on above: Performed By: #### C BC, BMP ####[place] [phone] CBCon 08-17-2021 Absolute nRBC <0.01 Normal <0.01 [facility] Comment on above: Performed By: #### C BC, BMP ####[place] [phone] Erythrocyte distribution width (RBC) [Ratio] 12.3 % Normal 11.5-15.0 [facility] Comment on above: Performed By: #### C BC, BMP ####[address] Hematocrit (Bld) [Volume fraction] 33.6 % Low 39.0-51.0 [facility] Comment on above: Performed By: #### C BC, BMP ####[address] Hemoglobin (Bld) [Mass/Vol] 11.2 g/dL Low 13.0-17.0 [facility] Comment on above: Performed By: #### C BC, BMP ####[address] MCH 32.4 pG Normal 26.0-34.0 [facility] Comment on above: Performed By: #### C BC, BMP ####[address] MCHC (RBC) [Mass/Vol] 33.3 g/dL Normal 30.5-36.0 [facility] Comment on above: Performed By: #### C BC, BMP ####[address] MCV (RBC) [Entitic vol] 97.1 fL Normal 80.0-100.0 [facility] Comment on above: Performed By: #### C BC, BMP ####[address] Platelet mean volume (Bld) [Entitic vol] 10.9 fL Normal 9.0-12.7 [facility] Comment on above: Performed By: #### C BC, BMP ####[address] Platelets (Bld) [#/Vol] 129 10*3/uL Low 150-400 [facility] Comment on above: Performed By: #### C BC, BMP ####[place] [id number] [address] RBC (Bld) [#/Vol] 3.46 10*6/uL Low 4.20-6.00 [facility] Comment on above: Performed By: #### C BC, BMP ####[address] WBC (Bld) [#/Vol] 8.02 10*3/uL Normal 3.70-11.00 [facility] Comment on above: Performed By: #### C BC, BMP ####[address] CONSULTon 08-17-2021 CONSULT HNO ID: [id number] Author: Elsy Don MD Service: General Internal Medicine Author Type: Physician Type: Consults Filed: 08/17/2021 12:27 PM Note Text: INTERNAL MEDICINE CONSULT HISTORY AND PHYSICAL PLEASE DO NOT REMOVE FROM THE CHART OR MODIFY PRINTED COPY Patient Name: Mary Jimenez PRIMARY CARE PHYSICIAN: Jose Vadlovinos DO CONSULTING PHYSICIAN: Loyda Steele MD MD [...] . No sob . No urgency pain 10/06 PAST MEDICAL HISTORY: PAST MEDICAL HISTORY Diagnosis [...] , Disp: , Rfl: , 08/15/2021 [place] [address] OMEPRAZOLE (PRILOSEC ORAL), Take 40 mg by [...] (AJOVY SYRINGE SUBCUTANEO (more content not included)... [facility] THERAPY NTon 08-17-2021 THERAPY NT HNO ID: [id number] Author: MEMO Wang/Iad Service: Occupational Therapy Author Type: Occupational Therapist Type: Therapy (PT/OT/Speech/Resp) Filed: 08/17/2021 1:52 PM Note Text: Occupational Therapy Evaluation SERVICE DATE: 08/17/2021 SERVICE TIME: 1240 to 1313 ROOM: [place] [address] Recommended Discharge Disposition: Subacute/SNF Recommended Discharge Disposition [...] at Home Physical Assist at Home for: Transfers;Cleaning;Laundr y;Meals;Stairs;Safety;Kerri f Care;Shopping;Transportat ion Recommended Discharge Equipment: To Be Determined OT [...] chair Laundry: main floor Equipment Owned: Cane;Wheeled Walker;Methods Analyst;Grab Bars-Shower;ADL Kit;Elevated Toilet Seat;Extended tub bench Prior [...] indicate activity not attempted Learning/Educational Needs: Discharge Plan;Equipment;Functional Activities/Mobility;Pain Management;Precautions;Sa fety;Self Care Goals for Plan of Care: Patient [...] daily living (ADL) Interventions Provided: Evaluation;Therapeutic Activity (25449) $ Evaluation-Low (86605) Billed Units: 1 unit Training AND education provided in: Activity adaption / compensatory strategies, Bed mobility, Adaptive equipment / DME, Positioning, Precautions/restrictions, Role of Occupational Therapy, Transfer - Sit to stand The following therapeutic skills were used: Teach-back for education, Physical assist, Cuing visual, Cuing verbal, Cues for sequencing/proper technique for activity Timed Code Treatment (minutes): 18 Skilled Treatment Time (minutes): 33 Please see discipline specific clinical documentation lu (more content not included)... [facility] THERAPY NT HNO ID: [id number] Author: Dionte Estrada, PT Service: Physical Therapy Author Type: Physical Therapist Type: Therapy (PT/OT/Speech/Resp) Filed: 08/17/2021 12:12 PM Note Text: Physical Therapy Evaluation SERVICE DATE: 08/17/2021 SERVICE TIME: 1105 to 1149 ROOM: [place] [address] Recommended Discharge Disposition: Subacute/SNF Recommended Discharge Disposition [...] at Home Physical Assist at Home for: Cleaning;Laundry;Meals;St airs;Shopping;Transportat ion Recommended Discharge Equipment: To Be Determined PT [...] Strength;Balance Impaired;Sensory Deficit;Decreased Activity Tolerance Treatment Interventions: Education;Strengthening;F unctional Mobility Training;Balance Training;Pain Management Plan for next [...] chair Laundry: main floor Equipment Owned: Cane;Wheeled Walker;Methods Analyst;Grab Bars-Shower;Shower Chair Prior Functional Level: Within Functional [...] of Care;Precautions;Rehabil (more content not included)... Normal [facility] ANES POSTPROC EVALon 022 ANES POSTPROC EVAL HNO ID: [id number] Author: Naeem Banks MD Service: Anesthesiology Author Type: Anesthesiologist Type: Anesthesia Postprocedure Evaluation Filed: 08/16/2021 4:48 PM Note Text: POST ANESTHESIA EVALUATION NOTE : 1960 Procedure Summary Date: 08/16/21 Room / Location: [place] [address] / OR Anesthesia Start: 1047 Anesthesia Stop: 1545 Procedures: TLIF DECOMPRESSION LAMINECTOMY [...] August 16, 2021 TIME: 4:48 PM CSN: [id number] [facility] ANES PRE-OPon 08-16-2021 ANES PRE-OP HNO ID: [id number] Author: David Og MD Service: Anesthesiology Author [...] Vitals Value Taken Time BP 141/88 08/16/21 0708 Pulse 87 08/16/21 0708 Resp 18 08/16/21 0708 Temp 35.7 ?C (96.3 ?F) 08/16/21 0708 SpO2 95 % 08/16/21 0708 Facility-Administered Medications as of 08/16/2021 Medication Dose [...] 5 mg by mouth once daily. - HYDROcodone-acetaminophen (NORCO) 5-325 mg per tablet three times [...] tablet by mout (more content not included)... [facility] BRIEF OP NOTon 02-18-2022 BRIEF OP NOT HNO ID: [id number] Author: Loyda Steele MD Service: Neurosurgery Author Type: Physician Type: Brief Op Note Filed: 08/16/2021 3:28 PM Note Text: BRIEF OPERATIVE / PROCEDURE NOTE LOG ID: [id number] SURGERY/PROCEDURE DATE: 08/16/2021 INCISION/PROCEDURE START TIME: 11:17 AM INCISION CLOSE/PROCEDURE END TIME: 3:26 PM SURGEON(S)/PROCEDURALIST( S) AND SURVEYOR MINE(S): Surgeon(s) and Role: * Loyda Steele MD - Primary Physician Weapons [employer] Tactics Instructor: Christine Gutierrez PA-C SURGERY/PROCEDURE(S): L5/S1 TLIF ANESTHESIA: General FINDINGS: Appropriate decompression and hardware placement ESTIMATED BLOOD LOSS: 1000 mls SPECIMENS: None COMPLICATIONS: None DRAINS: Subfascial drain PRE-OP/PRE-PROCEDURE DIAGNOSIS: L5/S1 spondylolisthesis POST-OP/POST-PROCEDURE DIAGNOSIS: L5/S1 spondylolisthesis SIGNATURE: Loyda Steele MD PATIENT NAME: Mary Jimenez DATE: August 16, 2021 TIME: 3:24 PM [facility] NURSING PROGon 08-16-2021 NURSING PROG HNO ID: [id number] Author: Lucien Mehta RN Service: Nursing Author Type: Registered Nurse Type: Nursing Progress Note Filed: 08/16/2021 4:57 PM Note Text: Nursing Progress Note Patient Name: Mary Jimenez Patient [place] [address] Transfer Note: Patient transferred into room/unit 517-2 in stable condition. Actions taken: Patient and family oriented to 5D unit policies and procedures. Educated on falls risks, falls precautions, and use of call crouch prior to getting OOB. Patient resting in bed. Call light within reach. All needs met at this time. This note was completed by: Lucien Mehta [facility] NURSING PROG HNO ID: [id number] Author: Merced Pickett RN Service: ? Author Type: Registered Nurse Type: Nursing Progress Note Filed: 08/16/2021 10:47 AM Note Text: Patient transported to the OR via cart, accompanied by LB/IR. Level of consciousness: Alert and Oriented x 3 Emotional Status:Calm Sensory Impairments: No Language Barrier: No Mobility Impairments: No Addressed any patient concerns regarding consents, OR environment, and anesthetics. [facility] NURSING PROG HNO ID: [id number] Author: Merced Pickett RN Service: ? Author Type: Registered Nurse Type: Nursing Progress Note Filed: 08/16/2021 10:46 AM Note Text: Body temperature maintained by maintaining OR room temperature between 68-72 degrees F, providing patient with warm bath blankets, limiting areas of exposure and providing warm irrigation fluid. [facility] SURGICAL PATHOLOGYon 022 SURGICAL PATHOLOGY Specimen originated from [facility] Specimen #: [id number] Submitting Physician: LOYDA STEELE MD FINAL DIAGNOSIS L5-S1 - Spinal hardware (gross examination only). NB/RAUL/antonio 08/19/2021 Caitlyn Cartagena M.D. (Electronic Signature) SPECIMEN SUBMITTED A: OLD HARDWARE CLINICAL DATA SPONDYLOLISTHESIS OF LUMBAR REGION; L5-S1 TLIF; ADJACENT SEGMENT DISEASE GROSS DESCRIPTION A. Received fresh designated old hardware is a cylindrical screw that measures 6.5 cm in length and contains the inscription [id number] . Also within the container are two curved rods that measure 4 cm in length. Lastly within the container, are four metallic discs each measuring 1 cm in diameter. There is no tissue present. The specimen is reviewed by Dr. Cartagena. RAUL/antonio 08/19/2021 Gross examination performed at [facility], [address] [place] [address] Date of Report: 08/19/2021 Date of Procedure: 08/16/2021 Date of Receipt: 08/16/2021 Submitted by: LOYDA STEELE MD Location: [facility] Diagnostic interpretation performed at [facility], [address] [place] [address]. CLIA Number: [id number] [facility] XR LUMBAR 2V AP/LATon 2021 XR LUMBAR 2V AP/LAT * * *Final Report* * * DATE OF EXAM: Aug 16 2021 2:34PM PHILIP [id number] - XR LUMBAR 2V AP/LAT / [...] disc space. No fracture. IMPRESSION: As above. Manager Field: PSCAgustín Transcribe Date/Time: Aug 16 2021 2:54P Dictated by : DIONTE MANNING MD This examination was interpreted and the report reviewed and electronically signed by: DIONTE MANNING MD on Aug 16 2021 2:55PM EST [id number] [facility] XR LUMBAR SPECIFY 1Von 08-16 XR LUMBAR SPECIFY 1V * * *Final Report* * * DATE OF EXAM: Aug 16 2021 2:17PM PHILIP [id number] - XR LUMBAR SPECIFY 1V / [...] Intraoperative examination for surgical planning and documentation. Manager Field: [facility]AS[facility]ustín Transcribe Date/Time: Aug 16 2021 3:12P Dictated by : VEDA KIRKLAND DO This examination was interpreted and the report reviewed and electronically signed by: VEDA KIRKLAND DO on Aug 16 2021 3:26PM EST [id number] [facility] XR LUMBAR SPECIFY 1V * * *Final Report* * * DATE OF EXAM: Aug 16 2021 2:11PM PHILIP 5234 - XR LUMBAR SPECIFY 1V / [...] Intraoperative examination for surgical planning and documentation. Manager Field: [facility] Transcribe Date/Time: Aug 16 2021 3:12P Dictated by : VEDA KIRKLAND DO This examination was interpreted and the report reviewed and electronically signed by: VEDA KIRKLAND DO on Aug 16 2021 3:26PM EST [id number] [facility] XR LUMBAR SPECIFY 1V * * *Final Report* * * DATE OF EXAM: Aug 16 2021 2:06PM PHILIP 5234 - XR LUMBAR SPECIFY 1V / [...] Intraoperative examination for surgical planning and documentation. Manager Field: [facility] Transcribe Date/Time: Aug 16 2021 3:12P Dictated by : VEDA KIRKLAND DO This examination was interpreted and the report reviewed and electronically signed by: VEDA KIRKLAND DO on Aug 16 2021 3:26PM EST [id number] Normal [facility] Type and SCR (30D)on 022 ABO/RH(D) Positive Normal [facility] Comment on above: Performed By: #### T SCR30 #### [facility] [address] [place] [id number] MR Lumbar spine WO contrasto n 02-15-2021 IMPRESSION: Postoperative changes and degenerative changes in the lower lumbar spine as detailed. There is no severe spinal canal stenosis. Slight progression of moderate left and mild to moderate right foraminal narrowing at L5-S1 when compared to 06/25/2017. Anatomic Thoracic/Lumbar Variant: None. L4-5 is considered the level of the iliac crest and assume there are 5 lumbar-type vertebrae. Manager Field: [facility] Transcribe Date/Time: Feb 14 2021 1:32P Dictated by : RAMANDEEP CARNEY MD This examination was interpreted and the report reviewed and electronically signed by: RAMANDEEP CARNEY MD on Feb 15 2021 7:56AM EST DIVISION OF RADIOLOGY * * *Final Report* * * DATE OF EXAM: Feb 14 2021 12:15PM LNM 0303 - MRI LUMBAR SPINE WO IVCON / PROCEDURE REASON: multiple diagnoses * * * * Physician Interpretation * * * * EXAMINATION: MRI LUMBAR SPINE WO IVCON CLINICAL HISTORY: Chronic left-sided low back pain with left-sided sciatica TECHNIQUE: Routine lumbosacral spine MR protocol without gadolinium. MQ: [id number] COMPARISON: 06/25/2017 RESULT: Counting reference: Lumbosacral junction. For the purposes of this report, L4-5 is considered the level of the iliac crest and assume there are 5 lumbar-type vertebrae. Anatomic variant: None. Localizer images: Bilateral renal cysts. Alignment: Alignment is anatomic. Bone marrow signal/fracture: Posterior instrumented fusion and interbody fusion at L4-5. Constraints of metallic artifact, no evidence of a marrow replacement process. Conus: The conus is within normal limits of signal intensity and morphology. Paraspinal soft tissues: Disrupted dorsal paraspinal soft tissue planes from prior surgery. Lower thoracic spine: Lower thoracic canal and foramina are patent. T12-L1: Canal and foramina are patent. L1-L2: Canal and foramina are patent. L2-L3: Canal and foramina are patent L3-L4: Canal and foramina are patent L4-L5: Facet hypertrophy. Moderate right and no significant left foraminal stenosis. This appears similar to the prior. Canal is decompressed. L5-S1: Disc bulging with endplate osteophytes and facet hypertrophy. Moderate left and [id number] right foraminal stenosis, slightly progressed. Canal is patent. Sacrum and iliac wings: The visualized sacrum and iliac wings are within normal limits. DIVISION OF RADIOLOGY Provider, [facility] - 02/15/2021 * * *Final Report* * * DATE OF EXAM: Feb 14 2021 12:15PM LNM 0303 - MRI LUMBAR SPINE WO IVCON / PROCEDURE REASON: multiple diagnoses * * * * Physician Interpretation * * * * EXAMINATION: MRI LUMBAR SPINE WO IVCON CLINICAL HISTORY: Chronic left-sided low back pain with left-sided sciatica TECHNIQUE: Routine lumbosacral spine MR protocol without gadolinium. MQ: [id number] COMPARISON: 06/25/2017 RESULT: Counting reference: Lumbosacral junction. For the purposes of this report, L4-5 is considered the level of the iliac crest and assume there are 5 lumbar-type vertebrae. Anatomic variant: None. Localizer images: Bilateral renal cysts. Alignment: Alignment is anatomic. Bone marrow signal/fracture: Posterior instrumented fusion and interbody fusion at L4-5. Constraints of metallic artifact, no evidence of a marrow replacement process. Conus: The conus is within normal limits of signal intensity and morphology. Paraspinal soft tissues: Disrupted dorsal paraspinal soft tissue planes from prior surgery. Lower thoracic spine: Lower thoracic canal and foramina are patent. T12-L1: Canal and foramina are patent. L1-L2: Canal and foramina are patent. L2-L3: Canal and foramina are patent L3-L4: Canal and foramina are patent L4-L5: Facet hypertrophy. Moderate right and no significant left foraminal stenosis. This appears similar to the prior. Canal is decompressed. L5-S1: Disc bulging with endplate osteophytes and facet hypertrophy. Moderate left and [id number] right foraminal stenosis, slightly progressed. Canal is patent. Sacrum and iliac wings: The visualized sacrum and iliac wings are within normal limits. IMPRESSION IMPRESSION: Postoperative changes and degenerative changes in the lower lumbar spine as detailed. There is no severe spinal canal stenosis. Slight progression of moderate left and mild to moderate right foraminal narrowing at L5-S1 when compared to 06/25/2017. Anatomic Thoracic/Lumbar Variant: None. L4-5 is considered the level of the iliac crest and assume there are 5 lumbar-type vertebrae. Manager Field: [facility] Transcribe Date/Time: Feb 14 2021 1:32P Dictated by : RAMANDEEP CARNEY MD This examination was interpreted and the report reviewed and electronically signed by: RAMANDEEP CARNEY MD on Feb 15 2021 7:56AM EST [facility] MR Lumbar spine WO contrastO rdered By: [facility] Provider on 02-15-2021 [facility] MR Lumbar spine WO contrasto n 02-14-2021 Radiology Study observation (narrative) [facility] CARDIAC STRESS/REST (KAREN CARDIAL PERFUSION/MIBI)on 05-09-2020 [facility] CARDIAC STRESS/REST (MYOCARDIAL PERFUSION/MIBI) Patient Name: MARY JIMENEZ STUDY: MYOCARDIAL PERFUSION STRESS TEST WITH LEXISCAN Performing facility: [facility], \[address], [address], \[address] Provider: Danisha Bran MD PCP: Dr. Ana Valdovinos Supervising provider: Yobany Garcia MD, [facility] INDICATION: Chest Pain; SOB; HISTORY: Gender: M; Age: 59 y/o ; Height: 177.8 cm; Weight: 106.8954738 kg. High Cholesterol; HTN; Chest Pain; SOB; Denies smoking. Cardiac catheterization on 1999. COMPARISON: Previous nuclear testing completed [id number] [facility]. ACCESSION NUMBER(S): [id number]; [id number]; [id number] ORDERING CLINICIAN: DANISHA BRAN TECHNIQUE: TWO DAY [...] changes. Electronically signed by: YOBANY GARCIA MD [facility] CARDIAC STRESS/REST INJE CTIONon 05-09-2020 [facility] CARDIAC STRESS/REST INJECTION Patient Name: MARY JIMENEZ STUDY: MYOCARDIAL PERFUSION STRESS TEST WITH LEXISCAN Performing facility: [facility], \[address], [address], \[address] Provider: Danisha Bran MD PCP: Dr. Ana Valdovinos Supervising provider: Yobany Garcia MD, [facility] INDICATION: Chest Pain; SOB; HISTORY: Gender: M; Age: 59 y/o ; Height: 177.8 cm; Weight: 284.8367716 kg. High Cholesterol; HTN; Chest Pain; SOB; Denies smoking. Cardiac catheterization on 1999. COMPARISON: Previous nuclear testing completed [id number] [facility]. ACCESSION NUMBER(S): [id number]; [id number]; [id number] ORDERING CLINICIAN: DANISHA BRAN TECHNIQUE: TWO DAY [...] changes. Electronically signed by: YOBANY GARCIA MD [facility] PART 2 STRESS OR REST (N O CHARGE)on 05-09-2020 [facility] PART 2 STRESS OR REST (NO CHARGE) Patient Name: MARY JIMENEZ STUDY: MYOCARDIAL PERFUSION STRESS TEST WITH LEXISCAN Performing facility: [facility], \[address], [address], \[place] [id number] [facility] Provider: Danisha Bran MD PCP: Dr. Ana Valdovinos Supervising provider: Yobany Garcia MD, [facility] INDICATION: Chest Pain; SOB; HISTORY: Gender: M; Age: 59 y/o ; Height: 177.8 cm; Weight: 778.7334808 kg. High Cholesterol; HTN; Chest Pain; SOB; Denies smoking. Cardiac catheterization on 1999. COMPARISON: Previous nuclear testing completed [id number] [facility]. ACCESSION NUMBER(S): [id number]; [id number]; [id number] ORDERING CLINICIAN: DANISHA BRAN TECHNIQUE: TWO DAY [...] changes. Electronically signed by: YOBANY GARCIA MD [facility] Vital Signs Date Time Vital Sign Value Performing Clinician Jose J west 02-02-2025 15:44-0400 Diastolic blood pressure 71 mm[Hg] Jose Oberer DO Work Phone: [facility] 02-02-2025 15:44-0400 Heart rate 70 /min Jose Oberer DO Work Phone: [facility] 02-02-2025 15:44-0400 Respiratory rate 12 /min Jose Oberer DO Work Phone: [facility] 02-02-2025 15:44-0400 SaO2% (BldA) [Mass fraction] 94 % Jose Oberer DO Work Phone: [facility] 02-02-2025 15:44-0400 Systolic blood pressure 129 mm[Hg] Jose Oberer DO Work Phone: [facility] 02-02-2025 11:05-0400 Body height 177.8 cm Jose Oberer DO Work Phone: [facility] 02-02-2025 11:05-0400 Body temperature 98.1 [degF] Jose Oberer DO Work Phone: [facility] 02-02-2025 11:05-0400 Body weight 124 kg Jose Oberer DO Work Phone: [facility] 01-26-2025 16:03-0400 Body height 175.3 cm Danisha Woodall Work Phone: [facility] 01-26-2025 16:03-0400 Body mass index (BMI) [Ratio] 40.46 kg/m2 Danisha Bran MD Work Phone: [facility] 01-26-2025 16:03-0400 Body weight 124.29 kg Danisha Woodall Work Phone: [facility] 01-26-2025 16:03-0400 Diastolic blood pressure 68 mm[Hg] Danisha Bran MD Work Phone: [facility] 01-26-2025 16:03-0400 Heart rate 88 /min Danisha Woodall Work Phone: [facility] 01-26-2025 16:03-0400 Systolic blood pressure 138 mm[Hg] Danisha Bran MD Work Phone: [facility] 01-04-2025 11:28-0400 Body height 176.5 cm Loyda Setele MD Work Phone: [facility] 01-04-2025 11:28-0400 Body mass index (BMI) [Ratio] 40.17 kg/m2 Loyda Steele MD Work Phone: [facility] 01-04-2025 11:28-0400 Body weight 125.19 kg Loyda Steele MD Work Phone: [facility] 01-04-2025 11:28-0400 Diastolic blood pressure 81 mm[Hg] Loyda Steele MD Work Phone: [facility] 01-04-2025 11:28-0400 Heart rate 64 /min Loyda Steele MD Work Phone: [facility] 01-04-2025 11:28-0400 SaO2% (BldA) [Mass fraction] 100 % Loyda Steele MD Work Phone: [facility] 01-04-2025 11:28-0400 Systolic blood pressure 134 mm[Hg] Loyda Steele MD Work Phone: [facility] 12-19-2024 09:57-0400 Body height 175.26 cm Jose Oberer DO Work Phone: [facility] 12-19-2024 09:57-0400 Body mass index (BMI) [Ratio] 40.6 kg/m2 Jose Oberer DO Work Phone: [facility] 12-19-2024 09:57-0400 Body weight 124.8 kg Jose Oberer DO Work Phone: [facility] 12-19-2024 09:57-0400 Diastolic blood pressure 76 mm[Hg] Jose Oberer DO Work Phone: [facility] 12-19-2024 09:57-0400 Heart rate 74 /min Jose Oberer DO Work Phone: [facility] 12-19-2024 09:57-0400 Respiratory rate 18 /min Jose Oberer DO Work Phone: [facility] 12-19-2024 09:57-0400 Systolic blood pressure 129 mm[Hg] Jose Oberer DO Work Phone: [facility] 12-12-2024 10:34-0400 Body height 175.26 cm Jose Oberer DO Work Phone: [facility] 12-12-2024 10:34-0400 Body mass index (BMI) [Ratio] 41.1 kg/m2 Jose Oberer DO Work Phone: [facility] 12-12-2024 10:34-0400 Body temperature 96 [degF] Jose Oberer DO Work Phone: [facility] 12-12-2024 10:34-0400 Body weight 126.26 kg Jose Oberer DO Work Phone: [facility] 12-12-2024 10:34-0400 Diastolic blood pressure 63 mm[Hg] Jose Oberer DO Work Phone: [facility] 12-12-2024 10:34-0400 Heart rate 92 /min Jose Oberer DO Work Phone: [facility] 12-12-2024 10:34-0400 Respiratory rate 18 /min Jose Oberer DO Work Phone: [facility] 12-12-2024 10:34-0400 SaO2% (BldA) [Mass fraction] 93 % Jose Oberer DO Work Phone: [facility] 12-12-2024 10:34-0400 Systolic blood pressure 124 mm[Hg] Jose Oberer DO Work Phone: [facility] 11-30-2024 11:08-0400 Body height 176.5 cm Loyda Steele MD Work Phone: [facility] 11-30-2024 11:08-0400 Body mass index (BMI) [Ratio] 40.3 kg/m2 Loyda Steele MD Work Phone: [facility] 11-30-2024 11:08-0400 Body weight 125.6 kg Loyda Steele MD Work Phone: [facility] 11-30-2024 11:08-0400 Diastolic blood pressure 65 mm[Hg] Loyda Steele MD Work Phone: [facility] 11-30-2024 11:08-0400 Heart rate 96 /min Loyda Steele MD Work Phone: [facility] 11-30-2024 11:08-0400 SaO2% (BldA) [Mass fraction] 96 % Loyda Steele MD Work Phone: [facility] 11-30-2024 11:08-0400 Systolic blood pressure 115 mm[Hg] Loyda Steele MD Work Phone: [facility] 11-07-2024 09:20-0400 Body height 175.26 cm Jose Oberer DO Work Phone: [facility] 11-07-2024 09:20-0400 Body mass index (BMI) [Ratio] 41 kg/m2 Jose Oberer DO Work Phone: [facility] 11-07-2024 09:20-0400 Body weight 126.09 kg Jose Oberer DO Work Phone: [facility] 11-07-2024 09:20-0400 Diastolic blood pressure 77 mm[Hg] Jose Oberer DO Work Phone: [facility] 11-07-2024 09:20-0400 Heart rate 94 /min Jose Oberer DO Work Phone: [facility] 11-07-2024 09:20-0400 SaO2% (BldA) [Mass fraction] 92 % Jose Oberer DO Work Phone: [facility] 11-07-2024 09:20-0400 Systolic blood pressure 129 mm[Hg] Jose Oberer DO Work Phone: [facility] 10-31-2024 13:38-0400 Diastolic blood pressure 79 mm[Hg] Jose Oberer DO Work Phone: [facility] 10-31-2024 13:38-0400 Systolic blood pressure 120 mm[Hg] Jose Oberer DO Work Phone: [facility] 10-31-2024 10:04-0400 Body height 175.26 cm Jose Oberer DO Work Phone: [facility] 10-31-2024 10:04-0400 Body mass index (BMI) [Ratio] 40.6 kg/m2 Jose Oberer DO Work Phone: [facility] 10-31-2024 10:04-0400 Body temperature 97.2 [degF] Jose Oberer DO Work Phone: [facility] 10-31-2024 10:04-0400 Body weight 124.9 kg Jose Oberer DO Work Phone: [facility] 10-31-2024 10:04-0400 Heart rate 86 /min Jose Oberer DO Work Phone: [facility] 10-31-2024 10:04-0400 Respiratory rate 18 /min Jose Oberer DO Work Phone: [facility] 10-31-2024 10:04-0400 SaO2% (BldA) [Mass fraction] 92 % Jose Oberer DO Work Phone: [facility] 10-27-2024 10:15-0400 Body height 176.5 cm Ewa Rodriguez [place] Work Phone: [facility] 10-27-2024 10:15-0400 Body mass index (BMI) [Ratio] 40.03 kg/m2 Ewa Rodriguez PA Work Phone: [facility] 10-27-2024 10:15-0400 Body weight 124.74 kg Ewa Hai PA Work Phone: [facility] 10-27-2024 10:15-0400 Diastolic blood pressure 92 mm[Hg] Ewa Rodriguez PA Work Phone: [facility] 10-27-2024 10:15-0400 Heart rate 87 /min Ewa Hai PA Work Phone: [facility] 10-27-2024 10:15-0400 Respiratory rate 16 /min Ewa Hai PA Work Phone: [facility] 10-27-2024 10:15-0400 SaO2% (BldA) [Mass fraction] 96 % Ewa Hai PA Work Phone: [facility] 10-27-2024 10:15-0400 Systolic blood pressure 142 mm[Hg] Ewa Rodriguez PA Work Phone: [facility] 09-28-2024 14:38-0400 Body height 175.26 cm Jose Oberer DO Work Phone: [facility] 09-28-2024 14:38-0400 Body mass index (BMI) [Ratio] 41.1 kg/m2 Jose Oberer DO Work Phone: [facility] 09-28-2024 14:38-0400 Body weight 126.2 kg Jose Oberer DO Work Phone: [facility] 09-28-2024 14:38-0400 Diastolic blood pressure 81 mm[Hg] Jose Oberer DO Work Phone: [facility] 09-28-2024 14:38-0400 Heart rate 82 /min Jose Oberer DO Work Phone: [facility] 09-28-2024 14:38-0400 Respiratory rate 18 /min Jose Oberer DO Work Phone: [facility] 09-28-2024 14:38-0400 SaO2% (BldA) [Mass fraction] 96 % Jose Oberer DO Work Phone: [facility] 09-28-2024 14:38-0400 Systolic blood pressure 144 mm[Hg] Jose Oberer DO Work Phone: [facility] 08-18-2024 09:39-0500 Body height 175.26 cm [facility] 08-18-2024 09:39-0500 Body mass index (BMI) [Ratio] 39.4 kg/m2 [facility] 08-18-2024 09:39-0500 Body temperature 96 [degF] [facility] 08-18-2024 09:39-0500 Body weight 121.3 kg [facility] 08-18-2024 09:39-0500 Diastolic blood pressure 67 mm[Hg] [facility] 08-18-2024 09:39-0500 Heart rate 89 /min [facility] 08-18-2024 09:39-0500 Respiratory rate 18 /min [facility] 08-18-2024 09:39-0500 SaO2% (BldA) [Mass fraction] 95 % [facility] 08-18-2024 09:39-0500 Systolic blood pressure 128 mm[Hg] [facility] 08-03-2024 14:06-0500 Body mass index (BMI) [Ratio] 39.28 kg/m2 Christopher Alli DO Work Phone: [facility] 08-03-2024 14:06-0500 Body weight 120.66 kg Christopher Alli DO Work Phone: [facility] 08-03-2024 14:06-0500 Diastolic blood pressure 92 mm[Hg] Christopher Alli DO Work Phone: [facility] 08-03-2024 14:06-0500 Heart rate 76 /min Christopher Alli DO Work Phone: [facility] 08-03-2024 14:06-0500 SaO2% (BldA) [Mass fraction] 94 % Kg Carson DO Work Phone: [facility] 08-03-2024 14:06-0500 Systolic blood pressure 140 mm[Hg] Kg Carson DO Work Phone: [facility] 08-01-2024 10:16-0500 Body height 175.26 cm [facility] 08-01-2024 10:16-0500 Body mass index (BMI) [Ratio] 39.4 kg/m2 [facility] 08-01-2024 10:16-0500 Body weight 121.1 kg [facility] 08-01-2024 10:16-0500 Diastolic blood pressure 72 mm[Hg] [facility] 08-01-2024 10:16-0500 Heart rate 90 /min [facility] 08-01-2024 10:16-0500 SaO2% (BldA) [Mass fraction] 94 % [facility] 08-01-2024 10:16-0500 Systolic blood pressure 127 mm[Hg] [facility] 07-28-2024 12:59-0500 Body height 175.26 cm Jose Oberer DO Work Phone: [facility] 07-28-2024 12:59-0500 Body mass index (BMI) [Ratio] 40 kg/m2 Jose Oberer DO Work Phone: [facility] 07-28-2024 12:59-0500 Body weight 122.92 kg Jose Oberer DO Work Phone: [facility] 07-28-2024 12:59-0500 Diastolic blood pressure 77 mm[Hg] Jose Oberer DO Work Phone: [facility] 07-28-2024 12:59-0500 Heart rate 91 /min Jose Oberer DO Work Phone: [facility] 07-28-2024 12:59-0500 Respiratory rate 18 /min Jose Oberer DO Work Phone: [facility] 07-28-2024 12:59-0500 SaO2% (BldA) [Mass fraction] 95 % Jose Oberer DO Work Phone: [facility] 07-28-2024 12:59-0500 Systolic blood pressure 125 mm[Hg] Jose Oberer DO Work Phone: [facility] 07-22-2024 10:08-0500 Body height 176.5 cm Danisha Woodall Work Phone: [facility] 07-22-2024 10:08-0500 Body mass index (BMI) [Ratio] 39.3 kg/m2 Danisha Bran MD Work Phone: [facility] 07-22-2024 10:08-0500 Body weight 122.47 kg Danisha Woodall Work Phone: [facility] 07-22-2024 10:08-0500 Diastolic blood pressure 82 mm[Hg] Danisha Bran MD Work Phone: [facility] 07-22-2024 10:08-0500 Heart rate 88 /min Danisha Woodall Work Phone: [facility] 07-22-2024 10:08-0500 Systolic blood pressure 132 mm[Hg] Danisha Bran MD Work Phone: [facility] 07-20-2024 12:53-0500 Body height 176.5 cm Loyda Steele MD Work Phone: [facility] 07-20-2024 12:53-0500 Body mass index (BMI) [Ratio] 39.21 kg/m2 Loyda Steele MD Work Phone: [facility] 07-20-2024 12:53-0500 Body weight 122.2 kg Loyda Steele MD Work Phone: [facility] 07-20-2024 12:53-0500 Diastolic blood pressure 91 mm[Hg] Loyda Steele MD Work Phone: [facility] 07-20-2024 12:53-0500 Heart rate 93 /min Loyda Steele MD Work Phone: [facility] 07-20-2024 12:53-0500 Systolic blood pressure 151 mm[Hg] Loyda Steele MD Work Phone: [facility] 07-13-2024 09:55-0500 Body mass index (BMI) [Ratio] 39.28 kg/m2 Christopher Alli DO Work Phone: [facility] 07-13-2024 09:55-0500 Body weight 120.66 kg Christopher Alli DO Work Phone: [facility] 07-13-2024 09:55-0500 Diastolic blood pressure 84 mm[Hg] Christopher Alli DO Work Phone: [facility] 07-13-2024 09:55-0500 Heart rate 92 /min Christopher Alli DO Work Phone: [facility] 07-13-2024 09:55-0500 SaO2% (BldA) [Mass fraction] 95 % Christopher Alli DO Work Phone: [facility] 07-13-2024 09:55-0500 Systolic blood pressure 148 mm[Hg] Christopher Alli DO Work Phone: [facility] 05-19-2024 12:53-0500 Body height 175.3 cm Se Rodriges MD Work Phone: [facility] 05-19-2024 12:53-0500 Body mass index (BMI) [Ratio] 38.54 kg/m2 Se Rodriges MD Work Phone: [facility] 05-19-2024 12:53-0500 Body weight 118.39 kg Se Rodriges MD Work Phone: [facility] 05-19-2024 12:53-0500 Diastolic blood pressure 80 mm[Hg] Se Rodriges MD Work Phone: [facility] 05-19-2024 12:53-0500 Systolic blood pressure 120 mm[Hg] Se Rodriges MD Work Phone: [facility] 05-18-2024 10:30-0500 Body height 175.26 cm Jose Oberer DO Work Phone: [facility] 05-18-2024 10:30-0500 Body mass index (BMI) [Ratio] 38.7 kg/m2 Jose Oberer DO Work Phone: [facility] 05-18-2024 10:30-0500 Body weight 119.03 kg Jose Oberer DO Work Phone: [facility] 05-18-2024 10:30-0500 Diastolic blood pressure 68 mm[Hg] Jose Oberer DO Work Phone: [facility] 05-18-2024 10:30-0500 Heart rate 91 /min Jose Oberer DO Work Phone: [facility] 05-18-2024 10:30-0500 Respiratory rate 18 /min Jose Oberer DO Work Phone: [facility] 05-18-2024 10:30-0500 SaO2% (BldA) [Mass fraction] 97 % Jose Oberer DO Work Phone: [facility] 05-18-2024 10:30-0500 Systolic blood pressure 109 mm[Hg] Jose Oberer DO Work Phone: [facility] 05-06-2024 08:26-0500 Body height 175.26 cm Jose Oberer DO Work Phone: [facility] 05-06-2024 08:26-0500 Body mass index (BMI) [Ratio] 39.3 kg/m2 Jose Oberer DO Work Phone: [facility] 05-06-2024 08:26-0500 Body temperature 98.2 [degF] Jose Oberer DO Work Phone: [facility] 05-06-2024 08:26-0500 Body weight 120.85 kg Jose Oberer DO Work Phone: [facility] 05-06-2024 08:26-0500 Diastolic blood pressure 68 mm[Hg] Jose Oberer DO Work Phone: [facility] 05-06-2024 08:26-0500 Heart rate 70 /min Jose Oberer DO Work Phone: [facility] 05-06-2024 08:26-0500 Respiratory rate 18 /min Jose Oberer DO Work Phone: [facility] 05-06-2024 08:26-0500 SaO2% (BldA) [Mass fraction] 96 % Jose Oberer DO Work Phone: [facility] 05-06-2024 08:26-0500 Systolic blood pressure 120 mm[Hg] Jose Oberer DO Work Phone: [facility] 02-16-2024 08:14-0400 Body height 175.3 cm Ewa Rodriguez PA Work Phone: [facility] 02-16-2024 08:14-0400 Body mass index (BMI) [Ratio] 39.43 kg/m2 Ewa Rodriguez PA Work Phone: [facility] 02-16-2024 08:14-0400 Body weight 121.11 kg Ewa Rodriguez PA Work Phone: [facility] 02-16-2024 08:14-0400 Diastolic blood pressure 84 mm[Hg] Ewa Rodriguez PA Work Phone: [facility] 02-16-2024 08:14-0400 Heart rate 81 /min Ewa Rodriguez PA Work Phone: [facility] 02-16-2024 08:14-0400 Respiratory rate 16 /min Ewa Hill PA Work Phone: [facility] 02-16-2024 08:14-0400 SaO2% (BldA) [Mass fraction] 94 % Ewa EUBANKS Work Phone: [facility] 02-16-2024 08:14-0400 Systolic blood pressure 122 mm[Hg] Ewa EUBANKS Work Phone: [facility] 02-01-2024 10:23-0400 Body height 175.26 cm DO Jose Oberer Work Phone: [facility] 02-01-2024 10:23-0400 Body mass index (BMI) [Ratio] 38.8 kg/m2 DO Jose Oberer Work Phone: [facility] 02-01-2024 10:23-0400 Body weight 119.29 kg DO Jose Oberer Work Phone: [facility] 02-01-2024 10:23-0400 Diastolic blood pressure 76 mm[Hg] DO Jose Oberer Work Phone: [facility] 02-01-2024 10:23-0400 Heart rate 79 /min DO Jose Oberer Work Phone: [facility] 02-01-2024 10:23-0400 SaO2% (BldA) [Mass fraction] 95 % DO Jose Oberer Work Phone: [facility] 02-01-2024 10:23-0400 Systolic blood pressure 132 mm[Hg] DO Jose Oberer Work Phone: [facility] 01-26-2024 13:21-0400 Body height 170.18 cm DO Jose Oberer Work Phone: [facility] 01-26-2024 13:21-0400 Body mass index (BMI) [Ratio] 41.5 kg/m2 DO Jose Oberer Work Phone: [facility] 01-26-2024 13:21-0400 Body temperature 96.9 [degF] DO Jose Oberer Work Phone: [facility] 01-26-2024 13:21-0400 Body weight 120.4 kg DO Jose Oberer Work Phone: [facility] 01-26-2024 13:21-0400 Diastolic blood pressure 71 mm[Hg] DO Jose Oberer Work Phone: [facility] 01-26-2024 13:21-0400 Heart rate 87 /min DO Jose Oberer Work Phone: [phone] [place] [address] 01-26-2024 13:21-0400 Respiratory rate 16 /min DO Jose Oberer Work Phone: [facility] 01-26-2024 13:21-0400 SaO2% (BldA) [Mass fraction] 93 % DO Jose Oberer Work Phone: [facility] 01-26-2024 13:21-0400 Systolic blood pressure 129 mm[Hg] DO Jose Oberer Work Phone: [facility] 12-10-2023 13:16-0400 Body height 170.18 cm DO Jose Oberer Work Phone: [facility] 12-10-2023 13:16-0400 Body mass index (BMI) [Ratio] 40.9 kg/m2 DO Jose Oberer Work Phone: [phone] [place] [address] 12-10-2023 13:16-0400 Body weight 118.52 kg DO Jose Oberer Work Phone: [facility] 12-10-2023 13:16-0400 Diastolic blood pressure 76 mm[Hg] DO Jose Oberer Work Phone: [facility] 12-10-2023 13:16-0400 Heart rate 82 /min DO Jose Oberer Work Phone: [facility] 12-10-2023 13:16-0400 Respiratory rate 18 /min DO Jose Oberer Work Phone: [facility] 12-10-2023 13:16-0400 SaO2% (BldA) [Mass fraction] 94 % DO Jose Oberer Work Phone: [facility] 12-10-2023 13:16-0400 Systolic blood pressure 125 mm[Hg] DO Jose Oberer Work Phone: [facility] 10-30-2023 09:07-0400 Body height 170.18 cm DO Jose Oberer Work Phone: [facility] 10-30-2023 09:07-0400 Body mass index (BMI) [Ratio] 42 kg/m2 DO Jose Oberer Work Phone: [facility] 10-30-2023 09:07-0400 Body temperature 98.1 [degF] DO Jose Oberer Work Phone: [facility] 10-30-2023 09:07-0400 Body weight 121.67 kg DO Jose Oberer Work Phone: [facility] 10-30-2023 09:07-0400 Diastolic blood pressure 68 mm[Hg] DO Jose Oberer Work Phone: [facility] 10-30-2023 09:07-0400 Heart rate 77 /min DO Jose Oberer Work Phone: [facility] 10-30-2023 09:07-0400 Respiratory rate 16 /min DO Jose Oberer Work Phone: [facility] 10-30-2023 09:07-0400 SaO2% (BldA) [Mass fraction] 93 % DO Jose Oberer Work Phone: [facility] 10-30-2023 09:07-0400 Systolic blood pressure 117 mm[Hg] DO Jose Oberer Work Phone: [facility] 10-01-2023 13:52-0400 Body height 170.18 cm DO Jose Oberer Work Phone: [facility] 10-01-2023 13:52-0400 Body mass index (BMI) [Ratio] 43.7 kg/m2 DO Jose Oberer Work Phone: [facility] 10-01-2023 13:52-0400 Body weight 126.55 kg DO Jose Oberer Work Phone: [facility] 10-01-2023 13:52-0400 Diastolic blood pressure 75 mm[Hg] DO Jose Oberer Work Phone: [facility] 10-01-2023 13:52-0400 Heart rate 91 /min DO Jose Oberer Work Phone: [facility] 10-01-2023 13:52-0400 Respiratory rate 18 /min DO Jose Oberer Work Phone: [facility] 10-01-2023 13:52-0400 SaO2% (BldA) [Mass fraction] 95 % DO Jose Oberer Work Phone: [facility] 10-01-2023 13:52-0400 Systolic blood pressure 108 mm[Hg] DO Jose Oberer Work Phone: [facility] 09-28-2023 11:37-0400 Body mass index (BMI) [Ratio] 43.4 kg/m2 DO Jose Oberer Work Phone: [facility] 09-28-2023 10:51-0400 Body height 170.18 cm DO Jose Oberer Work Phone: [facility] 09-28-2023 10:51-0400 Body weight 125.64 kg DO Jose Oberer Work Phone: [facility] 08-28-2023 11:01-0500 Body height 176.5 cm Danisha Woodall Work Phone: [facility] 08-28-2023 11:01-0500 Body mass index (BMI) [Ratio] 40.7 kg/m2 Danisha Bran MD Work Phone: [facility] 08-28-2023 11:01-0500 Body weight 126.83 kg Danisha Woodall Work Phone: [facility] 08-28-2023 11:01-0500 Diastolic blood pressure 66 mm[Hg] Danisha Bran MD Work Phone: [facility] 08-28-2023 11:01-0500 Heart rate 80 /min Danisha Woodall Work Phone: [facility] 08-28-2023 11:01-0500 Systolic blood pressure 110 mm[Hg] Danisha Bran MD Work Phone: [facility] 08-26-2023 09:20-0500 Body height 176.53 cm DO Jose Oberer Work Phone: [facility] 08-26-2023 09:20-0500 Body mass index (BMI) [Ratio] 39.6 kg/m2 DO Jose Oberer Work Phone: [facility] 08-26-2023 09:20-0500 Body weight 123.37 kg DO Jose Oberer Work Phone: [facility] 08-19-2023 13:34-0500 Diastolic blood pressure 75 mm[Hg] DO Jose Oberer Work Phone: [facility] 08-19-2023 13:34-0500 Heart rate 78 /min DO Jose Oberer Work Phone: [facility] 08-19-2023 13:34-0500 Respiratory rate 16 /min DO Jose Oberer Work Phone: [facility] 08-19-2023 13:34-0500 SaO2% (BldA) [Mass fraction] 96 % DO Jose Oberer Work Phone: [facility] 08-19-2023 13:34-0500 Systolic blood pressure 121 mm[Hg] DO Jose Oberer Work Phone: [facility] 08-19-2023 11:59-0500 Body height 176.53 cm DO Jose Oberer Work Phone: [facility] 08-19-2023 11:59-0500 Body weight 123.37 kg DO Jose Oberer Work Phone: [facility] 07-30-2023 14:00-0500 Body height 170.18 cm Jose Oberer Other [facility] 07-30-2023 14:00-0500 Body mass index (BMI) [Ratio] 43.35 kg/m2 Jose Oberer Other [facility] [employer] Other 07-30-2023 14:00-0500 Body temperature 97.6 [degF] Jose Oberer Other [facility] [employer] Other 07-30-2023 14:00-0500 Body weight 125.56 kg Jose Oberer Other [facility] [employer] Other 07-30-2023 14:00-0500 Body weight 125.55 kg DO Jose Oberer Work Phone: [facility] 07-30-2023 14:00-0500 Diastolic blood pressure 64 mm[Hg] Jose Oberer Other [facility] 07-30-2023 14:00-0500 Respiratory rate 18 /min Jose Oberer Other [facility] [employer] Other 07-30-2023 14:00-0500 SaO2% (BldA) [Mass fraction] 94 % Jose Oberer Other [facility] [employer] Other 07-30-2023 14:00-0500 Systolic blood pressure 103 mm[Hg] Jose Oberer Other [facility] 07-16-2023 13:15-0500 Body height 170.18 cm John Soto Other [facility] 07-16-2023 13:15-0500 Body mass index (BMI) [Ratio] 42.91 kg/m2 John Soto Other [facility] [employer] Other 07-16-2023 13:15-0500 Body weight 124.29 kg John Soto Other [facility] [employer] Other 07-16-2023 13:15-0500 Body weight 124.28 kg DO Jose Oberer Work Phone: [facility] 07-13-2023 12:45-0500 Body height 170.18 cm Rafael Holbrook Other [facility] 07-13-2023 12:45-0500 Body mass index (BMI) [Ratio] 42.93 kg/m2 Rafael Holbrook Other [facility] [employer] Other 07-13-2023 12:45-0500 Body weight 124.33 kg Rafael Holbrook Other [facility] [employer] Other 07-13-2023 12:45-0500 Body weight 124.32 kg DO Jose Oberer Work Phone: [facility] 07-13-2023 12:45-0500 Diastolic blood pressure 71 mm[Hg] Rafael Holbrook Other [facility] 07-13-2023 12:45-0500 Respiratory rate 18 /min Rafael Holbrook Other [employer] Other 07-13-2023 12:45-0500 SaO2% (BldA) [Mass fraction] 95 % Rafael Holbrook Other [employer] Other 07-13-2023 12:45-0500 Systolic blood pressure 112 mm[Hg] Rafael Holbrook Other [facility] 07-07-2023 11:15-0500 Body height 170.18 cm Raquel Fitt Other [facility] 06-18-2023 08:00-0500 Body height 170.18 cm Raquel Fitt Other [facility] 06-18-2023 08:00-0500 Body mass index (BMI) [Ratio] 43.47 kg/m2 Raquel Fitt Other [email or web address] Other 06-18-2023 08:00-0500 Body weight 125.92 kg Raquel Fitt Other [employer] Other 06-18-2023 08:00-0500 Body weight 125.91 kg DO Gravie Work Phone: [facility] 04-30-2023 08:00-0400 Body height 170.18 cm Raquel Fitt Other [employer] Other 04-30-2023 08:00-0400 Body mass index (BMI) [Ratio] 44.18 kg/m2 Raquel Fitt Other [employer] Other 04-30-2023 08:00-0400 Body weight 127.96 kg Raquel Fitt Other [employer] Other 04-16-2023 13:00-0400 Body height 170.18 cm Rafael Holbrook Other [employer] Other 04-16-2023 13:00-0400 Body mass index (BMI) [Ratio] 43.13 kg/m2 Rafael Holbrook Other [employer] Other 04-16-2023 13:00-0400 Body weight 124.92 kg Rafael Montalvodiff Other [employer] Other 04-16-2023 13:00-0400 Diastolic blood pressure 70 mm[Hg] Rafael Montalvodiff Other [employer] Other 04-16-2023 13:00-0400 Respiratory rate 18 /min Rafael Montalvodiff Other [facility] Other 04-16-2023 13:00-0400 SaO2% (BldA) [Mass fraction] 94 % Rafael Montalvodiff Other [facility] Other 04-16-2023 13:00-0400 Systolic blood pressure 107 mm[Hg] Rafael Montalvodiff Other [employer] Other 04-07-2023 10:45-0400 Body height 170.18 cm Jose Oberer Other [employer] Other 04-07-2023 10:45-0400 Body mass index (BMI) [Ratio] 43.58 kg/m2 Jose Oberer Other [employer] Other 04-07-2023 10:45-0400 Body temperature 98.3 [degF] Jose Oberer Other [employer] Other 04-07-2023 10:45-0400 Body weight 126.24 kg Jose Oberer Other [employer] Other 04-07-2023 10:45-0400 Diastolic blood pressure 66 mm[Hg] Jose Oberer Other [facility] Other 04-07-2023 10:45-0400 Respiratory rate 18 /min Jose Oberer Other [facility] Other 04-07-2023 10:45-0400 SaO2% (BldA) [Mass fraction] 95 % Jose Oberer Other [facility] Other 04-07-2023 10:45-0400 Systolic blood pressure 104 mm[Hg] Jose Oberer Other [employer] Other 02-12-2023 12:45-0400 Body height 170.18 cm Rafael Montalvodiff Other [facility] Other 02-12-2023 12:45-0400 Body mass index (BMI) [Ratio] 42.61 kg/m2 Rafael Montalvodiff Other [facility] Other 02-12-2023 12:45-0400 Body weight 123.42 kg Rafael Yusef Other [facility] Other 02-12-2023 12:45-0400 Diastolic blood pressure 99 mm[Hg] Rafaelromero Holbrook Other [facility] Other 02-12-2023 12:45-0400 Respiratory rate 18 /min Rafael Yusef Other [facility] Other 02-12-2023 12:45-0400 SaO2% (BldA) [Mass fraction] 90 % Rafael Montalvodiff Other [facility] Other 02-12-2023 12:45-0400 Systolic blood pressure 145 mm[Hg] Rafael Montalvodiff Other [facility] Other 01-08-2023 13:00-0400 Body height 170.18 cm Raquel Fitt Other [facility] Other 01-08-2023 13:00-0400 Body mass index (BMI) [Ratio] 43.4 kg/m2 Raquel Fitt Other [facility] Other 01-08-2023 13:00-0400 Body weight 125.69 kg Raquel Fitt Other [facility] Other 12-18-2022 11:15-0400 Body height 170.18 cm Jose Oberer Other [employer] Other 12-18-2022 11:15-0400 Body mass index (BMI) [Ratio] 44.16 kg/m2 Jose Oberer Other [employer] Other 12-18-2022 11:15-0400 Body temperature 97.8 [degF] Jose Oberer Other [employer] Other 12-18-2022 11:15-0400 Body weight 127.92 kg Jose Oberer Other [employer] Other 12-18-2022 11:15-0400 Diastolic blood pressure 71 mm[Hg] Jose Oberer Other [facility] Other 12-18-2022 11:15-0400 Respiratory rate 18 /min Jose Oberer Other [facility] Other 12-18-2022 11:15-0400 SaO2% (BldA) [Mass fraction] 96 % Jose Oberer Other [employer] Other 12-18-2022 11:15-0400 Systolic blood pressure 136 mm[Hg] Jose Oberer Other [employer] Other 12-16-2022 11:30-0400 Body height 170.18 cm Rafael Holbrook Other [employer] Other 12-16-2022 11:30-0400 Body mass index (BMI) [Ratio] 43.91 kg/m2 Rafael Holbrook Other [employer] Other 12-16-2022 11:30-0400 Body weight 127.19 kg Rafael Holbrook Other [employer] Other 12-16-2022 11:30-0400 Diastolic blood pressure 87 mm[Hg] Rafael Holbrook Other [facility] Other 12-16-2022 11:30-0400 Respiratory rate 18 /min Rafael Holbrook Other [employer] Other 12-16-2022 11:30-0400 SaO2% (BldA) [Mass fraction] 94 % Rafael Holbrook Other [facility] Other 12-16-2022 11:30-0400 Systolic blood pressure 131 mm[Hg] Rafael Holbrook Other [employer] Other 10-29-2022 14:15-0400 Body height 170.18 cm Rafael Holbrook Other [employer] Other 10-29-2022 14:15-0400 Body mass index (BMI) [Ratio] 44.48 kg/m2 Rafael Holbrook Other [facility] Other 10-29-2022 14:15-0400 Body weight 128.82 kg Rafael Montalvodiff Other [facility] Other 10-29-2022 14:15-0400 Diastolic blood pressure 79 mm[Hg] Rafael Holbrook Other [employer] Other 10-29-2022 14:15-0400 Respiratory rate 18 /min Rafael Holbrook Other [facility] Other 10-29-2022 14:15-0400 SaO2% (BldA) [Mass fraction] 90 % Rafael Holbrook Other [facility] Other 10-29-2022 14:15-0400 Systolic blood pressure 136 mm[Hg] Rafael Montalvodiff Other [facility] Other 10-24-2022 11:39-0400 Body height 175.26 cm Inspher[employer] Work Phone: [employer] DO Work Phone: 10-24-2022 11:39-0400 Body mass index (BMI) [Ratio] 41.94 kg/m2 Qoopl Oberer Work Phone: [employer] [facility] [facility] DO Work Phone: 10-24-2022 11:39-0400 Body surface area Derived from formula 2.4 m2 Jose L Oberer Work Phone: [facility] [facility] DO Work Phone: 10-24-2022 11:39-0400 Body weight 128.82 kg Jose L Oberer Work Phone: [facility] 250 DO Work Phone: 10-24-2022 11:39-0400 Diastolic blood pressure 72 mm[Hg] Jose L Oberer Work Phone: [facility] [facility] DO Work Phone: 10-24-2022 11:39-0400 Heart rate 68 /min Jose L Oberer Work Phone: [facility] DO Work Phone: 10-24-2022 11:39-0400 Systolic blood pressure 122 mm[Hg] Jose L Oberer Work Phone: [facility] DO Work Phone: 10-21-2022 09:15-0400 Body height 170.18 cm Raquel Montague Other [employer] Other 10-09-2022 14:15-0400 Body height 170.18 cm Jose Oberer Other [employer] Other 10-09-2022 14:15-0400 Body mass index (BMI) [Ratio] 45.01 kg/m2 Jose Oberer Other [employer] Other 10-09-2022 14:15-0400 Body temperature 97.6 [degF] Jose Oberer Other [employer] Other 10-09-2022 14:15-0400 Body weight 130.36 kg Jose Oberer Other [employer] Other 10-09-2022 14:15-0400 Diastolic blood pressure 52 mm[Hg] Jose Oberer Other [employer] Other 10-09-2022 14:15-0400 Respiratory rate 18 /min Jose Oberer Other [employer] Other 10-09-2022 14:15-0400 SaO2% (BldA) [Mass fraction] 94 % Jose Oberer Other [employer] Other 10-09-2022 14:15-0400 Systolic blood pressure 110 mm[Hg] Jose Oberer Other [employer] Other 09-24-2022 11:30-0400 Body height 170.18 cm Olvin Andino Other [employer] Other 09-24-2022 11:30-0400 Body mass index (BMI) [Ratio] 45.76 kg/m2 Olvin Kevinley Other [employer] Other 09-24-2022 11:30-0400 Body weight 132.54 kg Olvin Thu Other [employer] Other 09-03-2022 12:12-0500 Diastolic blood pressure 61 mm[Hg] DO Jose Oberer Work Phone: [facility] 09-03-2022 12:12-0500 Heart rate 77 /min DO Jose Oberer Work Phone: [facility] 09-03-2022 12:12-0500 Respiratory rate 18 /min DO Jose Oberer Work Phone: [facility] 09-03-2022 12:12-0500 SaO2% (BldA) [Mass fraction] 94 % DO Jose Oberer Work Phone: [facility] 09-03-2022 12:12-0500 Systolic blood pressure 105 mm[Hg] DO Jose Oberer Work Phone: [facility] 09-03-2022 10:04-0500 Body height 175.26 cm DO Jose Oberer Work Phone: [facility] 09-03-2022 10:04-0500 Body temperature 97.9 [degF] DO Jose Oberer Work Phone: [facility] 09-03-2022 10:04-0500 Body weight 135 kg DO Jose Oberer Work Phone: [facility] 08-25-2022 15:00-0500 Body height 170.18 cm Rafael Holbrook Other [facility] [employer] Other 08-25-2022 15:00-0500 Body mass index (BMI) [Ratio] 46.4 kg/m2 Rafael Holbrook Other [employer] Other 08-25-2022 15:00-0500 Body weight 134.4 kg Rafael Holbrook Other [employer] Other 08-25-2022 15:00-0500 Diastolic blood pressure 69 mm[Hg] Rafael Holbrook Other [employer] Other 08-25-2022 15:00-0500 Respiratory rate 20 /min Rafael Holbrook Other [facility] Other 08-25-2022 15:00-0500 SaO2% (BldA) [Mass fraction] 93 % Rafael Yusef Other [facility] Other 08-25-2022 15:00-0500 Systolic blood pressure 120 mm[Hg] Rafael Holbrook Other [facility] Other 08-22-2022 13:45-0500 Body height 170.18 cm Jose Oberer Other [employer] Other 08-22-2022 13:45-0500 Body mass index (BMI) [Ratio] 46.14 kg/m2 Jose Oberer Other [employer] Other 08-22-2022 13:45-0500 Body temperature 98 [degF] Jose Oberer Other [employer] Other 08-22-2022 13:45-0500 Body weight 133.63 kg Jose Oberer Other [employer] Other 08-22-2022 13:45-0500 Diastolic blood pressure 78 mm[Hg] Jose Oberer Other [facility] Other 08-22-2022 13:45-0500 Respiratory rate 20 /min Jose Oberer Other [facility] Other 08-22-2022 13:45-0500 SaO2% (BldA) [Mass fraction] 95 % Jose Oberer Other [facility] Other 08-22-2022 13:45-0500 Systolic blood pressure 106 mm[Hg] Jose Oberer Other [employer] Other 07-18-2022 10:15-0500 Body height 170.18 cm Alise Missler Other [employer] Other 07-18-2022 10:15-0500 Body mass index (BMI) [Ratio] 47.62 kg/m2 Alise Missler Other [employer] Other 07-18-2022 10:15-0500 Body weight 137.94 kg Alise Missler Other [facility] Other 07-18-2022 10:15-0500 Diastolic blood pressure 60 mm[Hg] Alise Missler Other [facility] Other 07-18-2022 10:15-0500 Respiratory rate 18 /min Alise Missler Other [facility] Other 07-18-2022 10:15-0500 SaO2% (BldA) [Mass fraction] 96 % Alise Missler Other [facility] Other 07-18-2022 10:15-0500 Systolic blood pressure 103 mm[Hg] Alise Missler Other [facility] Other 07-16-2022 16:08-0500 Body height 175.26 cm [employer] Work Phone[facility] DO Work Phone: 07-16-2022 16:08-0500 Body mass index (BMI) [Ratio] 45.1 kg/m2 [employer] Work Phone: [facility] [employer] [facility] DO Work Phone: 07-16-2022 16:08-0500 Body surface area Derived from formula 2.47 m2 [employer] Work Phone: [facility] 250 DO Work Phone: 07-16-2022 16:08-0500 Body weight 138.52 kg Jose L Oberer Work Phone: [facility] 250 DO Work Phone: 07-16-2022 16:08-0500 Diastolic blood pressure 70 mm[Hg] Jose L Oberer Work Phone: [facility] 250 DO Work Phone: 07-16-2022 16:08-0500 Heart rate 86 /min Jose L Oberer Work Phone: [facility] 250 DO Work Phone: 07-16-2022 16:08-0500 Systolic blood pressure 120 mm[Hg] Jose L Oberer Work Phone: [facility] 250 DO Work Phone: 06-16-2022 15:30-0500 Diastolic blood pressure 51 mm[Hg] DO Jose Oberer Work Phone: [facility] 06-16-2022 15:30-0500 Heart rate 94 /min DO Jose Oberer Work Phone: [facility] 06-16-2022 15:30-0500 Respiratory rate 20 /min DO Jose Oberer Work Phone: [facility] 06-16-2022 15:30-0500 SaO2% (BldA) [Mass fraction] 93 % DO Jose Oberer Work Phone: [facility] 06-16-2022 15:30-0500 Systolic blood pressure 155 mm[Hg] DO Jose Oberer Work Phone: [facility] 06-16-2022 14:22-0500 Body temperature 97.2 [degF] DO Jose Oberer Work Phone: [facility] 06-16-2022 14:22-0500 Inhaled oxygen flow rate 10 L/min DO Jose Oberer Work Phone: [facility] 06-16-2022 12:28-0500 Body height 175.26 cm DO Jose Oberer Work Phone: [facility] 06-16-2022 12:28-0500 Body mass index (BMI) [Ratio] 43.4 kg/m2 DO Jose Oberer Work Phone: [facility] 06-16-2022 12:28-050 Body weight 133.6 kg DO Jose Oberer Work Phone: [facility] 05-27-2022 14:15-0500 Body height 177.8 cm Jose Oberer Other [employer] Other 05-27-2022 14:15-0500 Body mass index (BMI) [Ratio] 41.99 kg/m2 Jose Oberer Other [employer] Other 05-27-2022 14:15-0500 Body temperature 98.2 [degF] Jose Oberer Other [employer] Other 05-27-2022 14:15-0500 Body weight 132.77 kg Jose Oberer Other [facility] Other 05-27-2022 14:15-0500 Diastolic blood pressure 68 mm[Hg] Jose Oberer Other [facility] Other 05-27-2022 14:15-0500 Respiratory rate 18 /min Jose Oberer Other [facility] Other 05-27-2022 14:15-0500 SaO2% (BldA) [Mass fraction] 97 % Jose Oberer Other [facility] [employer] Other 05-27-2022 14:15-0500 Systolic blood pressure 122 mm[Hg] Jose Reveleserer Other [facility] [employer] Other 05-06-2022 12:00-0500 Body temperature 97.9 [degF] [employer] Fernanda Graham Work Phone: [facility] 05-06-2022 12:00-0500 Diastolic blood pressure 80 mm[Hg] [employer] Fernanda Graham Work Phone: [facility] 05-06-2022 12:00-0500 Heart rate 79 /min [employer] Fernanda Graham Work Phone: [facility] 05-06-2022 12:00-0500 Respiratory rate 18 /min [employer] Fernanda Graham Work Phone: [facility] 05-06-2022 12:00-0500 SaO2% (BldA) [Mass fraction] 93 % [employer] Fernanda Graham Work Phone: [facility] 05-06-2022 12:00-0500 Systolic blood pressure 131 mm[Hg] [employer] Fernanda Graham Work Phone: [facility] 05-06-2022 09:50-0500 Body height 175.26 cm [employer] Fernanda Graham Work Phone: [facility] 05-06-2022 06:34-0500 Body weight 132.8 kg [employer] Fernanda Graham Work Phone: [facility] 05-03-2022 19:00-0400 Diastolic blood pressure 115 mm[Hg] [employer] Fernanda Graham Work Phone: [facility] 05-03-2022 19:00-0400 Heart rate 65 /min [employer] Fernanda Graham Work Phone: [facility] 05-03-2022 19:00-0400 Respiratory rate 18 /min [employer] Fernanda Graham Work Phone: [facility] 05-03-2022 19:00-0400 SaO2% (BldA) [Mass fraction] 99 % [employer] Fernanda Graham Work Phone: [facility] 05-03-2022 19:00-0400 Systolic blood pressure 154 mm[Hg] [employer] Fernanda Graham Work Phone: [facility] 05-03-2022 14:45-0400 Body height 177.8 cm [employer] Fernanda Graham Work Phone: [facility] 05-03-2022 14:45-0400 Body temperature 98.6 [degF] [employer] Fernanda Graham Work Phone: [facility] 05-03-2022 14:45-0400 Body weight 134 kg [employer] Fernanda Graham Work Phone: [facility] 04-11-2022 09:00-0400 Body height 177.8 cm Jose Oberer Other [employer] Other 04-11-2022 09:00-0400 Body mass index (BMI) [Ratio] 41.71 kg/m2 Jose Oberer Other [facility] Other 04-11-2022 09:00-0400 Body temperature 97.5 [degF] Jose Oberer Other [facility] Other 04-11-2022 09:00-0400 Body weight 131.86 kg Jose Oberer Other [facility] Other 04-11-2022 09:00-0400 Diastolic blood pressure 87 mm[Hg] Jose Oberer Other [facility] Other 04-11-2022 09:00-0400 Respiratory rate 20 /min Jose Oberer Other [facility] Other 04-11-2022 09:00-0400 SaO2% (BldA) [Mass fraction] 96 % Jose Oberer Other [facility] Other 04-11-2022 09:00-0400 Systolic blood pressure 136 mm[Hg] Jose Oberer Other [employer] Other 04-09-2022 12:59-0400 Body temperature 98.8 [degF] Laura Beltran PA-C Work Phone: [facility] 02-25-2022 10:30-0400 Body height 177.8 cm Fernanda Graham Other [employer] Other 02-25-2022 10:30-0400 Body mass index (BMI) [Ratio] 39.74 kg/m2 Fernanda Graham Other [employer] Other 02-25-2022 10:30-0400 Body temperature 97.5 [degF] Fernanda Graham Other [employer] Other 02-25-2022 10:30-0400 Body weight 125.65 kg Fernanda Graham Other [facility] Other 02-25-2022 10:30-0400 Diastolic blood pressure 96 mm[Hg] Fernanda Graham Other [facility] Other 02-25-2022 10:30-0400 SaO2% (BldA) [Mass fraction] 77 % Fernanda Graham Other [employer] Other 02-25-2022 10:30-0400 Systolic blood pressure 138 mm[Hg] Fernanda Grahma Other [employer] Other 02-13-2022 09:25-0400 Body height 175.3 cm Kevyn Cat PA- C Work Phone: [facility] 02-13-2022 09:25-0400 Body weight 122.24 kg Kevyn Cat PA- C Work Phone: [facility] 02-13-2022 09:25-0400 Diastolic blood pressure 68 mm[Hg] Kevyn Cat PA-C Work Phone: [facility] 02-13-2022 09:25-0400 Heart rate 71 /min Kevyn Cat PA- C Work Phone: [facility] 02-13-2022 09:25-0400 Systolic blood pressure 112 mm[Hg] Kevyn Bahett PA-C Work Phone: [facility] 01-30-2022 11:29-0400 Body height 176.5 cm Laura Strine PA-C Work Phone: [facility] 01-30-2022 11:29-0400 Body weight 117.48 kg Laura Strine PA-C Work Phone: [facility] 01-30-2022 11:29-0400 Diastolic blood pressure 45 mm[Hg] Laura Strine PA-C Work Phone: [facility] 01-30-2022 11:29-0400 Heart rate 76 /min Laura Strine PA-C Work Phone: [facility] 01-30-2022 11:29-0400 Systolic blood pressure 128 mm[Hg] Laura Strine PA-C Work Phone: [facility] 01-28-2022 15:00-0400 Body height 177.8 cm Jose Valdovinos Other [employer] Other 01-28-2022 15:00-0400 Body mass index (BMI) [Ratio] 38.41 kg/m2 Jose Oberer Other [facility] Other 01-28-2022 15:00-0400 Body temperature 98.2 [degF] Jose Oberer Other [facility] Other 01-28-2022 15:00-0400 Body weight 121.43 kg Jose Oberer Other [facility] Other 01-28-2022 15:00-0400 Diastolic blood pressure 66 mm[Hg] Jose O[facility] Other [facility] Other 01-28-2022 15:00-0400 Respiratory rate 20 /min Jose Oberer Other [facility] Other 01-28-2022 15:00-0400 SaO2% (BldA) [Mass fraction] 97 % Jose Oberer Other [facility] Other 01-28-2022 15:00-0400 Systolic blood pressure 122 mm[Hg] Jose Oberer Other [facility] Other 12-17-2021 11:15-0400 Body height 176.5 cm Pacc 4 Work Phone: [facility] 12-17-2021 11:15-0400 Body temperature 97.59 [degF] Pacc 4 Work Phone: [facility] 12-17-2021 11:15-0400 Body weight 117.48 kg Pacc 4 Work Phone: [facility] 12-17-2021 11:15-0400 Diastolic blood pressure 78 mm[Hg] Pacc 4 Work Phone: [facility] 12-17-2021 11:15-0400 Heart rate 98 /min Pacc 4 Work Phone: [facility] 12-17-2021 11:15-0400 Respiratory rate 20 /min Pacc 4 Work Phone: [facility] 12-17-2021 11:15-0400 SaO2% (BldA) [Mass fraction] 97 % Pacc 4 Work Phone: [facility] 12-17-2021 11:15-0400 Systolic blood pressure 124 mm[Hg] Pacc 4 Work Phone: [facility] 11-21-2021 17:45-0400 Hourly Rounding [facility] 11-21-2021 17:45-0400 Promise to Return [facility] 11-21-2021 17:43-0400 Diastolic blood pressure 75 mm[Hg] [facility] 11-21-2021 17:43-0400 Heart rate 94 /min [facility] 11-21-2021 17:43-0400 Mean blood pressure 91 mm[Hg] [facility] 11-21-2021 17:43-0400 Respiratory rate 16 /min [facility] 11-21-2021 17:43-0400 SaO2% (BldA) [Mass fraction] 95 % [facility] 11-21-2021 17:43-0400 Systolic blood pressure 123 mm[Hg] [facility] 11-21-2021 16:50-0400 Diastolic blood pressure 66 mm[Hg] [facility] 11-21-2021 16:50-0400 Heart rate 90 /min [facility] 11-21-2021 16:50-0400 Mean blood pressure 82 mm[Hg] [facility] 11-21-2021 16:50-0400 Respiratory rate 18 /min [facility] 11-21-2021 16:50-0400 SaO2% (BldA) [Mass fraction] 97 % [facility] 11-21-2021 16:50-0400 Systolic blood pressure 115 mm[Hg] [facility] 11-21-2021 15:50-0400 Heart rate 96 /min [facility] 11-21-2021 15:50-0400 SaO2% (BldA) [Mass fraction] 99 % [facility] 11-21-2021 14:56-0400 Diastolic blood pressure 76 mm[Hg] [facility] 11-21-2021 14:56-0400 Heart rate 99 /min [facility] 11-21-2021 14:56-0400 Mean blood pressure 96 mm[Hg] [facility] 11-21-2021 14:56-0400 Respiratory rate 16 /min [facility] 11-21-2021 14:56-0400 Systolic blood pressure 135 mm[Hg] [facility] 11-21-2021 13:32-0400 Respiratory rate 18 /min [facility] 11-21-2021 12:47-0400 Body temperature 98.78 [degF] [facility] 11-21-2021 12:47-0400 Respiratory rate 16 /min [facility] 11-20-2021 16:00-0400 Nursing Progress Note Reason Other: back to room from [facility] 11-20-2021 14:35-0400 Body temperature 98.78 [degF] [facility] 11-20-2021 14:35-0400 Heart rate 100 /min [facility] 11-04-2021 13:40-0400 Body temperature 97.8 [degF] Susie Brig[facility] 11-04-2021 13:40-0400 Diastolic blood pressure [...] 13:40-0400 Systolic blood pressure 133 mm[Hg] [facility] 10-21-2021 14:07-0400 Body height 176.5 cm CRISTA Segundo MD Work Phone: [facility] 10-21-2021 14:07-0400 Body weight 122.92 kg CRISTA Segundo MD Work Phone: [facility] 10-21-2021 14:07-0400 Respiratory rate 20 /min CRISTA Segundo MD Work Phone: [facility] 10-09-2021 11:24-0400 Body height 176.5 cm Loyda Steele MD Work Phone: [facility] 10-09-2021 11:24-0400 Body temperature 97.3 [degF] Loyda Steele MD Work Phone: [facility] 10-09-2021 11:24-0400 Body weight 123.02 kg Loyda Steele MD Work Phone: [facility] 10-09-2021 11:24-0400 Diastolic blood pressure 72 mm[Hg] Loyda Steele MD Work Phone: [facility] 10-09-2021 11:24-0400 Heart rate 78 /min Loyda Steele MD Work Phone: [facility] 10-09-2021 11:24-0400 Systolic blood pressure 119 mm[Hg] Loyda Steele MD Work Phone: [facility] 07-23-2021 16:15-0500 Body height 177.8 cm Jose Oberer Other [facility] Other 07-23-2021 16:15-0500 Body mass index (BMI) [Ratio] 42.73 kg/m2 Jose Oberer Other [facility] Other 07-23-2021 16:15-0500 Body temperature 97.8 [degF] Jose Oberer Other [facility] Other 07-23-2021 16:15-0500 Body weight 135.08 kg Jose Oberer Other [facility] Other 07-23-2021 16:15-0500 Diastolic blood pressure 72 mm[Hg] Jose Oberer Other [facility] Other 07-23-2021 16:15-0500 Respiratory rate 16 /min Jose Oberer Other [facility] Other 07-23-2021 16:15-0500 SaO2% (BldA) [Mass fraction] 97 % Jose Oberer Other [facility] Other 07-23-2021 16:15-0500 Systolic blood pressure 138 mm[Hg] Jose Oberer Other [facility] Other 06-27-2021 10:45-0500 Body height 177.8 cm Jose Oberer Other [facility] Other 06-27-2021 10:45-0500 Body mass index (BMI) [Ratio] 42.7 kg/m2 Jose Oberer Other [facility] Other 06-27-2021 10:45-0500 Body temperature 97.7 [degF] Jose Oberer Other [facility] Other 06-27-2021 10:45-0500 Body weight 134.99 kg Jose Oberer Other [facility] Other 06-27-2021 10:45-0500 Diastolic blood pressure 74 mm[Hg] Jose Oberer Other [facility] Other 06-27-2021 10:45-0500 Respiratory rate 16 /min Jose Oberer Other [facility] Other 06-27-2021 10:45-0500 SaO2% (BldA) [Mass fraction] 99 % Jose Oberer Other [facility] Other 06-27-2021 10:45-0500 Systolic blood pressure 138 mm[Hg] Jose Oberer Other [facility] Other 05-09-2021 10:15-0500 Body height 177.8 cm Jose Oberer Other [facility] Other 05-09-2021 10:15-0500 Body mass index (BMI) [Ratio] 41.38 kg/m2 Jose Oberer Other [facility] Other 05-09-2021 10:15-0500 Body temperature 98 [degF] Jose Oberer Other [facility] Other 05-09-2021 10:15-0500 Body weight 130.82 kg Jose Oberer Other [facility] Other 05-09-2021 10:15-0500 Diastolic blood pressure 78 mm[Hg] Jose Oberer Other [facility] Other 05-09-2021 10:15-0500 Respiratory rate 16 /min Jose Oberer Other [facility] Other 05-09-2021 10:15-0500 SaO2% (BldA) [Mass fraction] 98 % Jose Oberer Other [facility] Other 05-09-2021 10:15-0500 Systolic blood pressure 132 mm[Hg] Jose Oberer Other [facility] Other Encounters Encounter Date Encounter Type Care Provider Facility Start: 02-28-2025 End: 02-28-2025 Patient encounter procedure Rosey Dubose MD -Lab [facility] Start: 02-28-2025 End: 02-28-2025 ambulatory Jose Oberer DO Work Phone: [facility] Work Phone: Start: 02-23-2025 End: 02-23-2025 Telephone encounter Loyda Steele MD Work Phone: Neurology Comment on above: Patient Question Start: 02-20-2025 End: 02-20-2025 Telephone encounter Loyda Steele MD Work Phone: Neurology Comment on above: Results Start: 02-13-2025 End: 02-13-2025 ambulatory JOSE PARAS OBERER Facility:[facility] Start: 02-09-2025 End: 02-09-2025 Telephone encounter Loyda Steele MD Work Phone: Neurology Comment on above: Medication Request Start: 02-02-2025 End: 02-02-2025 Admission to same day surgery center Danisha Bran MD -Assistant Clinical Director Work Phone: Start: 02-02-2025 End: 02-02-2025 ambulatory Jose Oberer DO Work Phone: [facility] Work Phone: Start: 01-31-2025 End: 01-31-2025 Patient encounter procedure Danisha Bran MD -Pre-Surgical Testing Work Phone: Start: 01-31-2025 End: 01-31-2025 ambulatory Jose Oberer DO Work Phone: [facility] Work Phone: Start: 01-31-2025 Encounter for preprocedural laboratory examination Danisha Bran [facility] Start: 01-26-2025 End: 01-26-2025 Office outpatient visit 40 minutes Danisha Bran MD Work Phone: [facility] Comment on above: Angina pectoris (Sneha krystyna Dx); Essential hypertension; Shortness of breath on exertion; Mixed hyperlipidemia; Morbid obesity (Multi); BMI 39.0-39.9,adult; Cerebrovascular accident (CVA), unspecified mechanism (Multi); Never smoked any substance Start: 01-26-2025 End: 01-26-2025 ambulatory [facility] Ambulatory Start: 01-09-2025 End: 01-13-2025 Telephone encounter Loyda Steele MD Work Phone: Neurology Comment on above: Patient Question Start: 01-04-2025 End: 01-04-2025 Patient encounter procedure Loyda Steele MD Work Phone: Neurosurgery Comment on above: 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) Start: 01-04-2025 End: 01-04-2025 ambulatory LOYDA STEELE Facility:[facility] Start: 12-19-2024 End: 12-19-2024 Patient encounter procedure Rafael Holbrook MD -[facility] Work Phone: Start: 12-12-2024 End: 12-12-2024 Patient encounter procedure Jose Valdovinos [facility] Work Phone: Start: 12-08-2024 End: 12-08-2024 Patient encounter procedure Palak Merritt GROUNDS PERSON-C -X-[facility] Start: 12-08-2024 End: 12-08-2024 ambulatory Palak Merritt Facility:[facility] Start: 12-07-2024 End: 12-07-2024 Admission to same day surgery center Loyda Steele MD Work Phone: Neurosurgery Comment on above: Mary Jimenez`s next sp ine injection Specific location info Start: 12-07-2024 End: 12-07-2024 Patient encounter procedure Emg 1 Neur Fhc Rej (Max Weight: 400) Work Phone: Neurology Comment on above: EMG Start: 12-07-2024 End: 12-07-2024 ambulatory Loyda Steele MD Work Phone: Neurosurgery Start: 12-05-2024 End: 12-05-2024 ambulatory JOSE VALDOVINOS Facility:[facility] Start: 12-05-2024 End: 12-05-2024 Patient encounter procedure Gilmar EDUARDO [facility] Start: 12-01-2024 End: 12-05-2024 Telephone encounter Rosey Dubose MD Work Phone: [facility] Comment on above: Medication Problem Start: 11-30-2024 End: 11-30-2024 Patient encounter procedure Loyda Steele MD Work Phone: Neurosurgery Comment on above: Lumbar radiculopathy (Primary Dx) Start: 11-30-2024 End: 11-30-2024 ambulatory LOYDA HABBOUB Facility:[facility] Start: 11-28-2024 ambulatory JOSE OBERER Facility:[facility] Start: 11-23-2024 End: 11-23-2024 Patient encounter procedure Jose Oberer DO Work Phone: [facility] [place] Work Phone: Start: 11-23-2024 End: 11-23-2024 ambulatory Jose Oberer DO Work Phone: [facility] Work Phone: Start: 11-14-2024 End: 11-14-2024 ambulatory Steven Uriarte MD Facility:[facility] Start: 11-07-2024 End: 11-07-2024 ambulatory Jose Oberer DO Work Phone: [facility] Work Phone: Start: 11-07-2024 End: 11-07-2024 Patient encounter procedure Jose Oberer DO Work Phone: [facility] Work Phone: Start: 10-31-2024 End: 10-31-2024 Patient encounter procedure Jose Oberer DO Work Phone: [facility] [place] Work Phone: Start: 10-27-2024 End: 10-27-2024 Bamboo flowsheet Ewa EUBANKS Work Phone: [facility] Start: 10-27-2024 End: 10-27-2024 Bamboo flowsheet Ewa EUBANKS Work Phone: [facility] Start: 10-27-2024 End: 10-27-2024 Clinical Support Ewa EUBANKS Work Phone: [facility] Comment on above: Neck pain (Primary D x); Myalgia Start: 10-26-2024 End: 10-26-2024 Refill Rosey Dubose MD Work Phone: [facility] Comment on above: 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 Start: 10-19-2024 End: 10-19-2024 Patient encounter procedure Jose Oberer DO Work Phone: [facility]-Lab [facility] Start: 10-19-2024 End: 10-19-2024 ambulatory Jose Oberer DO Work Phone: [facility] Work Phone: Start: 10-06-2024 End: 11-29-2024 Telephone encounter Loyda Steele MD Work Phone: Neurology Comment on above: Patient Question; Ca re Coordinator - Other Start: 09-28-2024 End: 09-28-2024 ambulatory Jose Oberer DO Work Phone: [facility] Work Phone: Start: 09-28-2024 End: 09-28-2024 Patient encounter procedure Jose Oberer DO Work Phone: [facility] Work Phone: Start: 09-27-2024 End: 09-27-2024 Bamboo flowsheet Ewa EUBANKS Work Phone: [facility] Start: 09-27-2024 End: 09-27-2024 Bamboo flowsheet Ewa EUBANKS Work Phone: [facility] Start: 09-17-2024 End: 09-21-2024 Telephone encounter Guillaume Bhandari DO Work Phone: [facility] [place] Comment on above: Post Injection [facility] Start: 09-15-2024 End: 09-16-2024 Telephone encounter Guillaume Bhandari DO Work Phone: Neurology Start: 09-15-2024 End: 09-15-2024 ambulatory JOSE PARAS OBERER Facility:[facility] Start: 09-08-2024 End: 09-08-2024 ambulatory KRISTI BLAKE Not Available Start: 09-05-2024 End: 09-05-2024 ambulatory ROSEY DUBOSE Not Available Start: 09-03-2024 End: 09-07-2024 Telephone encounter Guillaume Cuba Harithadiane DO Work Phone: [facility] [place] Comment on above: Preperations for Pro cedure Call Start: 09-02-2024 End: 09-02-2024 Telephone encounter Gulilaume Cuba Reg DO Work Phone: [facility] [place] Comment on above: Preperations for Pro cedure (Mychart) Start: 09-01-2024 End: 09-01-2024 Orders Only Guillaume Cuba Reg DO Work Phone: [facility] Comment on above: Lumbar radiculopathy (Primary Dx); Cervical disc disorder with radiculopathy Start: 08-31-2024 End: 08-31-2024 Patient encounter procedure Jose Oberer DO Work Phone: [facility]-Lab [facility] Start: 08-31-2024 End: 08-31-2024 ambulatory Jose Oberer DO Work Phone: [facility] Work Phone: Start: 08-25-2024 End: 08-25-2024 Telephone encounter Guillaume Cuba Reg DO Work Phone: Neurology Comment on above: Cancel injection for today Start: 08-18-2024 End: 08-18-2024 ambulatory [facility] Work Phone: Start: 08-18-2024 End: 08-18-2024 Patient encounter procedure [facility] [place] Work Phone: Start: 08-10-2024 End: 08-16-2024 Telephone encounter Guillaume Cuba Reg DO Work Phone: [facility] [place] Comment on above: Preperations for Pro cedure Call Start: 08-09-2024 End: 08-09-2024 Patient encounter procedure Rosy Pycraft RT(R) Radiology Start: 08-09-2024 End: 08-09-2024 ambulatory Rosy Pycraft RT(R) Radiology Comment on above: Radiology CT Start: 08-09-2024 End: 08-09-2024 Subsequent hospital visit by physician Yvette [facility] Maria Del Rosario Work Phone: Radiology Comment on above: Radiculopathy of lum bar region [M54.16] Start: 08-03-2024 End: 08-03-2024 Bamboo flowsheet Kg Carson DO Work Phone: [facility] Start: 08-03-2024 End: 08-03-2024 Bamboo flowsheet Kg Carson DO Work Phone: [facility] Start: 08-03-2024 End: 08-03-2024 Patient encounter procedure Kg Carson DO Work Phone: [facility] Comment on above: Chronic migraine wit hout aura without status migrainosus, not intractable (CMS/HCC) (Primary Dx) Start: 08-03-2024 End: 08-03-2024 ambulatory KG CARSON Not Available Start: 08-01-2024 End: 08-01-2024 ambulatory [facility] Work Phone: Start: 08-01-2024 End: 08-01-2024 Patient encounter procedure [facility] Physician [facility] Work Phone: Start: 07-28-2024 End: 07-28-2024 ambulatory Jose Oberer DO Work Phone: [facility] Work Phone: Start: 07-28-2024 End: 07-28-2024 Patient encounter procedure Jose Oberer DO Work Phone: [facility] Physician [facility] Work Phone: Start: 07-27-2024 End: 07-27-2024 Telephone encounter Guillaume Bhandari DO Work Phone: [facility] [place] Comment on above: Preperations for Pro cedure (Mychart/) Start: 07-25-2024 End: 07-25-2024 Orders Only Guillaume Bhandari DO Work Phone: Sp[facility] Medicine Comment on above: Lumbar radiculopathy (Primary Dx) Start: 07-22-2024 End: 07-22-2024 Office outpatient visit 25 minutes Danisha Bran MD Work Phone: [facility] Comment on above: Shortness of breath on exertion (Primary Dx); Essential hypertension; Mixed hyperlipidemia; Morbid obesity (Multi); Cerebrovascular accident (CVA), unspecified mechanism (Multi); Angina pectoris; BMI 39.0-39.9,adult; Never smoked any substance Start: 07-22-2024 End: 07-22-2024 ambulatory [facility] Ambulatory Start: 07-20-2024 End: 07-20-2024 Patient encounter procedure Loyda Steele MD Work Phone: Neurosurgery Comment on above: Lumbar radiculopathy (Primary Dx); Radiculopathy of lumbar region; Cervical disc disorder with radiculopathy Start: 07-20-2024 End: 07-20-2024 ambulatory LOYDA STEELE Facility:[facility] Start: 07-13-2024 End: 07-13-2024 Bamboo flowsheet Kg Carson DO Work Phone: [facility] Start: 07-13-2024 End: 07-13-2024 Bamboo flowsheet Kg Carson DO Work Phone: [facility] Start: 07-13-2024 End: 07-13-2024 Office outpatient visit 25 minutes Kg Carson DO Work Phone: [facility] Comment on above: Chronic migraine wit hout aura with status migrainosus, not intractable (CMS/HCC) (Primary Dx) Start: 07-13-2024 End: 07-13-2024 ambulatory KG CARSON Not Available Start: 07-11-2024 End: 07-11-2024 Telephone encounter Loyda Steele MD Work Phone: Neurosurgery Comment on above: Patient Question Start: 06-27-2024 End: 07-05-2024 Telephone encounter Loyda Steele MD Work Phone: Neurology Comment on above: Results Start: 06-15-2024 End: 06-15-2024 ambulatory Se Rodriges Facility:[facility] Start: 06-15-2024 End: 06-15-2024 Patient encounter procedure Se Rodriges [facility] Start: 06-13-2024 End: 06-13-2024 Refill Bette Chung MA [facility] Comment on above: Radiculopathy, lumbo sacral region (Primary Dx) Start: 06-09-2024 End: 06-09-2024 ambulatory Chalo Linares Facility:[facility] Start: 06-09-2024 Non-patient / Non-visit Jose vail DO Work Phone: [facility] Work Phone: Start: 06-06-2024 End: 06-06-2024 Telephone encounter Shireen Ardon MA [facility] Comment on above: Med prior to MRI Start: 05-19-2024 End: 05-19-2024 Bamboo flowsheet Se Rodriges MD Work Phone: [facility] Start: 05-19-2024 End: 05-19-2024 Bamboo flowsheet Se Rodriges MD Work Phone: [facility] Start: 05-19-2024 End: 05-19-2024 Office outpatient visit 40 minutes Se Rodriges MD Work Phone: [facility] Comment on above: Chronic migraine wit hout aura with status migrainosus, not intractable (CMS/HCC); Lumbar radiculopathy; Cervical radiculopathy; Degenerative disc disease, cervical; Carpal tunnel syndrome, bilateral upper limbs; History of stroke; Restless leg syndrome; Hyper reflexia Start: 05-19-2024 End: 05-19-2024 ambulatory SE VALDIVIAYVETTE Not Available Start: 05-18-2024 End: 05-18-2024 ambulatory Jose Oberer DO Work Phone: [facility] Work Phone: Start: 05-18-2024 End: 05-18-2024 Patient encounter procedure Jose Oberer DO Work Phone: [facility] Physician [facility] Work Phone: Start: 05-17-2024 End: 05-17-2024 Telephone encounter Ewa EUBANKS Work Phone: [facility] Start: 05-06-2024 End: 11-30-2024 Telephone encounter Loyda Steele MD Work Phone: Neurology Comment on above: Results Start: 05-06-2024 End: 05-06-2024 ambulatory Jose Oberer DO Work Phone: [facility] Work Phone: Start: 05-06-2024 End: 05-06-2024 Patient encounter procedure Jose Oberer DO Work Phone: [facility] Work Phone: Start: 05-05-2024 End: 10-12-2024 Telephone encounter Loyda Steele MD Work Phone: Neurosurgery Comment on above: Patient Question Start: 05-02-2024 End: 05-02-2024 Patient encounter procedure DO Jose Oberer Work Phone: [facility] Start: 05-02-2024 End: 05-02-2024 ambulatory DO Jose Oberer Work Phone: [facility] Work Phone: Start: 04-11-2024 End: 04-11-2024 Telephone encounter Rosey Dubose MD Work Phone: [facility] Start: 04-01-2024 End: 04-04-2024 Telephone encounter Rosey Dubose MD Work Phone: [facility] Start: 03-21-2024 End: 03-22-[address] [facility] Comment on above: Radiculopathy, lumbo sacral region; Lumbar radiculopathy Start: 02-23-2024 End: 02-23-2024 ambulatory DO Jose Oberer Work Phone: [facility] Work Phone: Start: 02-23-2024 End: 02-23-2024 Patient encounter procedure DO Jose Oberer Work Phone: [facility]-Lab [facility] Start: 02-18-2024 End: 02-18-2024 Bamboo flowsheet Se Rodriges MD Work Phone: [facility] Start: 02-18-2024 End: 02-18-2024 Bamboo flowsheet Se Rodriges MD Work Phone: [facility] Start: 02-18-2024 End: 02-18-2024 Patient encounter procedure Se Rodriges MD Work Phone: [facility] Comment on above: Lumbar radiculopathy (Primary Dx); Cervical radiculopathy; Degenerative disc disease, cervical; Carpal tunnel syndrome, bilateral upper limbs Start: 02-18-2024 End: 02-18-2024 ambulatory SE RODRIGES Not Available Start: 02-16-2024 End: 02-16-2024 Bamboo flowsheet Ewa EUBANKS Work Phone: [facility] Start: 02-16-2024 End: 02-16-2024 Bamboo flowsheet Ewa EUBANKS Work Phone: [facility] Start: 02-16-2024 End: 02-16-2024 Office outpatient visit 25 minutes Ewa Hill PA Work Phone: [facility] Comment on above: Lumbar radiculopathy (Primary Dx); History of stroke; Chronic migraine without aura with status migrainosus, not intractable (CMS/HCC); Chronic daily headache; Obstructive sleep apnea; Restless leg syndrome; Degenerative disc disease, lumbar; Radiculopathy, lumbosacral region; Cervical radiculopathy; Degenerative disc disease, cervical; Carpal tunnel syndrome, bilateral upper limbs Start: 02-16-2024 End: 02-16-2024 ambulatory EWA RODRIGUEZ Not Available Start: 02-01-2024 End: 02-01-2024 ambulatory DO Jose Oberer Work Phone: [facility] Work Phone: Start: 02-01-2024 End: 02-01-2024 Patient encounter procedure DO Jose Oberer Work Phone: [facility] Physician [facility] Work Phone: Start: 01-26-2024 End: 01-26-2024 ambulatory DO Jose Oberer Work Phone: [facility] Work Phone: Start: 01-26-2024 End: 01-26-2024 Patient encounter procedure DO Jose Oberer Work Phone: [facility] Physician [facility] Work Phone: Start: 01-25-2024 Non-patient / Non-visit DO Ryan l Oberer Work Phone: [facility] Work Phone: Start: 01-25-2024 End: 01-25-2024 ambulatory JOSE OBERER Facility:[facility] Start: 01-25-2024 End: 01-25-2024 Patient encounter procedure JOSE OBERER [facility] Start: 01-13-2024 End: 01-13-2024 ambulatory DO Jose Oberer Work Phone: [facility] Work Phone: Start: 01-13-2024 End: 01-13-2024 Patient encounter procedure DO Jose Oberer Work Phone: [facility]XRay [facility] [place] Work Phone: Start: 12-10-2023 End: 12-10-2023 ambulatory DO Jose Oberer Work Phone: [facility] Work Phone: Start: 12-10-2023 End: 12-10-2023 Patient encounter procedure DO Jose Oberer Work Phone: Counts Include [facility] Work Phone: Start: 11-09-2023 End: 11-09-2023 ambulatory DO Jose Oberer Work Phone: [facility] Work Phone: Start: 11-09-2023 End: 11-09-2023 Patient encounter procedure DO Jose Oberer Work Phone: [facility]-CT Scan [facility] [place] Work Phone: Start: 10-30-2023 End: 10-30-2023 ambulatory DO Jose Oberer Work Phone: [facility] Work Phone: Start: 10-30-2023 End: 10-30-2023 Patient encounter procedure DO Jose Oberer Work Phone: Counts Include 234 [facility] Physician [facility] Family Medicine [place] Work Phone: Start: 10-24-2023 End: 10-24-2023 Patient encounter procedure DO Jose Oberer Work Phone: [facility] [place] Work Phone: Start: 10-08-2023 Non-patient / Non-visit DO Ryan l Oberer Work Phone: Counts Include 234 [facility] At [facility] Physician [facility] [place] Work Phone: Start: 10-08-2023 End: 10-08-2023 ambulatory DO Jose Oberer Work Phone: [facility] Work Phone: Start: 10-08-2023 End: 10-08-2023 Patient encounter procedure DO Jose Oberer Work Phone: [facility]-X-Ray [facility] Start: 10-06-2023 Telephone encounter Laura Truong RN General Surgery Start: 10-01-2023 End: 10-01-2023 ambulatory DO Jose Oberer Work Phone: [facility] Work Phone: Start: 10-01-2023 End: 10-01-2023 Patient encounter procedure DO Jose Oberer Work Phone: Counts Include 234 B[facility] At [facility] Physician [facility] Work Phone: Start: 09-28-2023 End: 09-28-2023 ambulatory DO Jose Oberer Work Phone: [facility] Work Phone: Start: 09-28-2023 End: 09-28-2023 Patient encounter procedure DO Jose Oberer Work Phone: Counts Include 234 [facility] At [facility] Physician [facility] Work Phone: Start: 08-28-2023 End: 08-28-2023 Office outpatient visit 25 minutes Danisha Bran MD Work Phone: [facility] Comment on above: Angina pectoris (CMS /HCC) (Primary Dx); Shortness of breath on exertion; Essential hypertension; Mixed hyperlipidemia; Morbid obesity (CMS/HCC); Cerebrovascular accident (CVA), unspecified mechanism (CMS/HCC); Never smoked any substance Start: 08-26-2023 End: 08-26-2023 Patient encounter procedure DO Jose Oberer Work Phone: Counts Include 234 [facility] Work Phone: Start: 08-24-2023 End: 08-24-2023 Patient encounter procedure DO Jose Oberer Work Phone: [facility] [place] Work Phone: Start: 08-19-2023 Non-patient / Non-visit DO Ryan l Oberer Work Phone: Counts Include 234 [facility] At [facility] Work Phone: Start: 08-19-2023 End: 08-19-2023 Admission to same day surgery center DO Jose Oberer Work Phone: [facility]-Digestive Health Work Phone: Start: 08-19-2023 End: 08-19-2023 ambulatory DO Jose Oberer Work Phone: [facility] Work Phone: Start: 08-06-2023 Registered Recurring DO Jose O berer Work Phone: [facility]-Weight Management Work Phone: Start: 07-30-2023 End: 07-30-2023 Patient encounter procedure DO Jose Oberer Work Phone: [facility]-Lab [place] Work Phone: Start: 07-30-2023 End: 07-30-2023 ambulatory DO Jose Oberer Work Phone: [facility] Work Phone: Start: 07-30-2023 Office outpatient vi sit 15 minutes Jose Oberer [facility] [place] Start: 07-30-2023 End: 07-30-2023 Patient encounter procedure DO Jose Oberer Work Phone: Counts Include 234 B[facility] At [facility]- Start: 07-28-2023 End: 07-28-2023 ambulatory DO Jose Oberer Work Phone: [facility] Work Phone: Start: 07-28-2023 End: 07-28-2023 Patient encounter procedure DO Jose Oberer Work Phone: [facility]-Digestive Health Work Phone: Start: 07-22-2023 Registered Recurring DO Jose O berer Work Phone: [facility]-Weight Management Work Phone: Start: 07-22-2023 End: 07-22-2023 ambulatory Raquel Fitt Other [employer] Other Start: 07-22-2023 IBT FOR OBESITY GROU P 2-10 30M Raquel Fitt Counts Include 234 Beds At [facility] Start: 07-21-2023 End: 07-21-2023 ambulatory Rafael Holbrook Other [facility] Other Start: 07-21-2023 Telephone encounter Rafael Cameron [employer] Start: 07-16-2023 End: 07-16-2023 ambulatory John Soto Other [facility] Other Start: 07-16-2023 Office outpatient ne w 45 minutes John PAVON Gastroenterology Start: 07-16-2023 End: 07-16-2023 Patient encounter procedure DO Jose Oberer Work Phone: Counts Include 234 B[facility] At [facility]- Start: 07-13-2023 End: 07-13-2023 ambulatory Rafael Holbrook Other [facility] Other Start: 07-13-2023 Follow-up encounter Rafael Cameron [facility] Start: 07-13-2023 End: 07-13-2023 Patient encounter procedure DO Jose Oberer Work Phone: Counts Include 234 B[facility] At [facility] Work Phone: Start: 07-10-2023 End: 07-10-2023 ambulatory Rafael Holbrook Other [facility] Other Start: 07-10-2023 Telephone encounter Rafael Holbrook Rakesh neela [facility] Start: 07-07-2023 End: 07-07-2023 ambulatory Raquel Montague Other [facility] Other Start: 07-07-2023 IBT FOR OBESITY GROU P 2-10 30M Raquel Vaughnalexandria [facility] Start: 07-07-2023 End: 07-07-2023 Patient encounter procedure DO Jose Oberer Work Phone: Counts Include 234 [facility] At [facility] Work Phone: Start: 06-18-2023 ([facility] RD FU) [facility] F/ U [employer] Raquel Mendesalexandria [facility] Start: 06-18-2023 End: 06-18-2023 ambulatory Raquel Fitt Other [facility] Other Start: 06-18-2023 End: 06-18-2023 Patient encounter procedure DO Jose Oberer Work Phone: Counts Include 234 [facility] At [facility] Work Phone: Start: 05-28-2023 End: 05-28-2023 ambulatory JUSTYNA MARTINEZ Facility:[facility] Start: 05-28-2023 End: 05-28-2023 Patient encounter procedure JUSTYNA MARTINEZ [facility] Start: 05-26-2023 End: 05-26-2023 ambulatory Jose Oberer Other [employer] Other Start: 05-26-2023 Telephone encounter Jose Oberer SAVANAH [facility] [place] Start: 05-20-2023 End: 05-20-2023 ambulatory Rafael Holbrook Other [facility] Other Start: 05-20-2023 Telephone encounter Rafael keita [facility] Start: 05-12-2023 End: 05-12-2023 ambulatory Jose Oberer Other [facility] Other Start: 05-12-2023 Telephone encounter Jose Oberer [facility] [place] Start: 05-01-2023 End: 05-01-2023 ambulatory Jose Oberer Other [employer] Other Start: 05-01-2023 Telephone encounter Jose Oberer [facility] Medicine [place] Start: 05-01-2023 End: 05-01-2023 Patient encounter procedure DO Jose Oberer Work Phone: Counts Include 234 B[facility] At [facility] [place] Work Phone: Start: 04-30-2023 ([facility] RD FU) [facility] F/ U [employer] Raquel Montague [facility] Start: 04-30-2023 End: 04-30-2023 ambulatory Raquel Montague Other [facility] Other Start: 04-30-2023 End: 04-30-2023 Patient encounter procedure DO Jose Oberer Work Phone: Counts Include 234 [facility] At [facility] Work Phone: Start: 04-20-2023 End: 04-20-2023 ambulatory Jose Oberer Other [employer] Other Start: 04-20-2023 Telephone encounter Jose Oberer [facility] [place] Start: 04-16-2023 End: 04-16-2023 ambulatory Rafael Holbrook Other [facility] Other Start: 04-16-2023 Follow-up encounter Rafael keita [facility] Start: 04-16-2023 Telephone encounter Rafael Holbrook Rakesh neela [facility] Start: 04-07-2023 End: 04-07-2023 ambulatory Jose Oberer Other [facility] Other Start: 04-07-2023 Office outpatient vi sit 15 minutes Jose Oberer [facility] Start: 03-09-2023 End: 03-09-2023 ambulatory Rafael Holbrook Other [facility] Other Start: 03-09-2023 Telephone encounter Rafael Yusef Rakesh neela [facility] Start: 03-04-2023 End: 03-04-2023 ambulatory DO Jose Oberer Work Phone: [facility] [employer] Work Phone: Start: 03-04-2023 End: 03-04-2023 Patient encounter procedure DO Jose Oberer Work Phone: [facility] [place] Work Phone: Start: 03-03-2023 End: 03-03-2023 ambulatory Jose Oberer Other [employer] Other Start: 03-03-2023 Telephone encounter Jose Oberer [facility] Start: 02-24-2023 End: 02-24-2023 ambulatory DO Jose Oberer Work Phone: [facility] [employer] Work Phone: Start: 02-24-2023 End: 02-24-2023 Patient encounter procedure DO Jose Oberer Work Phone: [facility]-Sleep Lab Work Phone: Start: 02-18-2023 End: 02-18-2023 ambulatory Rafael Montalvodiff Other [facility] Other Start: 02-18-2023 Telephone encounter Rafael Yusef keita [facility] Start: 02-12-2023 Registered Recurring DO Jose O berer Work Phone: [facility]-Weight Management Work Phone: Start: 02-12-2023 End: 02-12-2023 ambulatory Rafael Montalvodiff Other [facility] Other Start: 02-12-2023 Follow-up encounter Rafael keita [facility] Start: 02-03-2023 End: 02-03-2023 ambulatory Jose Oberer Other [facility] Other Start: 02-03-2023 Telephone encounter Jose Oberer [facility] Start: 01-27-2023 End: 01-27-2023 ambulatory Rafael Holbrook Other [facility] Other Start: 01-27-2023 Encounter by erica Holbrook [facility] Start: 01-13-2023 End: 01-13-2023 ambulatory Jose Oberer Other [facility] Other Start: 01-13-2023 Telephone encounter Jose Oberer [facility] Start: 01-08-2023 ([facility] RD FU) [facility] F/ U [employer] Raquel Montague [facility] Start: 01-08-2023 End: 01-08-2023 ambulatory Raquel Montague Other [facility] Other Start: 12-18-2022 Office outpatient vi sit 15 minutes Jose Oberer [facility] Start: 12-18-2022 End: 12-18-2022 ambulatory DO Jose Oberer Work Phone: [facility] Work Phone: Start: 12-18-2022 End: 12-18-2022 Patient encounter procedure DO Jose Oberer Work Phone: [facility]-Lab [facility] Start: 12-16-2022 End: 12-16-2022 ambulatory Rafael Holbrook Other [facility] Other Start: 12-16-2022 Follow-up encounter Rafael keita [facility] Start: 12-16-2022 Registered Recurring DO Jose O berer Work Phone: [facility]-Weight [facility] Work Phone: Start: 12-02-2022 End: 12-02-2022 ambulatory Jose Whyter Other [facility] [employer] Other Start: 12-02-2022 Telephone encounter Jose Valdovinos [facility] Start: 11-25-2022 End: 11-26-[address] SE STILL Facility:[facility] Start: 11-13-2022 End: 11-13-2022 Patient encounter procedure DO Jose Oberer Work Phone: [facility] [address] Work Phone: Start: 11-04-2022 End: 11-05-[address] JOSE VALDOVINOS Facility:[facility] Start: 10-29-2022 End: 10-29-2022 ambulatory Rafael Holbrook Other [employer] Other Start: 10-29-2022 Follow-up encounter Rafael keita [facility] Start: 10-24-2022 Office outpatient vi sit 25 minutes Jose L Oberer Work Phone: [facility] 250 DO Work Phone: Start: 10-21-2022 End: 10-21-2022 ambulatory Raquel Montague Other [employer] Other Start: 10-21-2022 IBT FOR OBESITY GROU P 2-10 30M Raquel Eddi [facility] Start: 10-20-2022 End: 10-20-2022 ambulatory Olvin Andino Other [employer] Other Start: 10-20-2022 Telephone encounter Olvin [facility] [place] [facility] Start: 10-15-2022 End: 10-15-2022 ambulatory Olvin Andino Other [facility] Other Start: 10-15-2022 Office outpatient vi sit 25 minutes Olvin Andino [facility] Start: 10-09-2022 Office outpatient vi sit 40 minutes Jose Valdovinos [facility] Start: 10-09-2022 End: 10-10-[address] JOSE VALDOVINOS [facility] Other Start: 10-06-2022 End: 10-06-2022 ambulatory Olvin Andino Other [employer] Other Start: 10-06-2022 Telephone encounter Olvin Cuba [place] [facility] Start: 10-03-2022 End: 10-03-2022 ambulatory DO Jose Oberer Work Phone: [facility] Work Phone: Start: 10-03-2022 End: 10-03-2022 Patient encounter procedure DO Jose Oberer Work Phone: [facility]Lab [facility] Start: 10-01-2022 End: 10-01-2022 ambulatory Rafael Holbrook Other [employer] Other Start: 10-01-2022 Telephone encounter Rafael keita [facility] Start: 09-24-2022 End: 09-24-2022 ambulatory Olvin Andino Other [employer] Other Start: 09-24-2022 Office outpatient ne w 30 minutes Olvin Andino [facility] Start: 09-18-2022 End: 09-18-2022 ambulatory Jose Oberer Other [employer] Other Start: 09-18-2022 Telephone encounter Jose Oberer [facility] Start: 09-17-2022 End: 09-17-2022 ambulatory DO Jose Oberer Work Phone: [facility] Work Phone: Start: 09-17-2022 End: 09-17-2022 Patient encounter procedure DO Jose Oberer Work Phone: [facility]-XRay [facility] Work Phone: Start: 09-15-2022 End: 09-15-2022 ambulatory Jose Oberer Other [employer] Other Start: 09-15-2022 Telephone encounter [facility] Start: 09-11-2022 End: 09-11-2022 ambulatory DO Jose Oberer Work Phone: [facility] Work Phone: Start: 09-11-2022 End: 09-11-2022 Patient encounter procedure DO Jose Oberer Work Phone: [facility]-X-Ray [facility] Start: 09-03-2022 End: 09-03-2022 Emergency department patient visit DO Jose Oberer Work Phone: [facility]-Emergency Room Work Phone: Start: 09-02-2022 End: 09-02-2022 ambulatory Jose Oberer Other [employer] Other Start: 09-02-2022 Telephone encounter [facility] Start: 08-25-2022 Registered Recurring DO Jose Corley berer Work Phone: [facility]-Weight [facility] Work Phone: Start: 08-25-2022 End: 08-25-2022 ambulatory Rafael Montalvodiff Other [facility] Other Start: 08-25-2022 Follow-up encounter Rafael keita [facility] Start: 08-22-2022 End: 08-22-2022 ambulatory Jose Valdovinos Other [employer] Other Start: 08-22-2022 Office outpatient vi sit 15 minutes Jose Obdiane [facility] [place] Start: 08-14-2022 End: 08-14-2022 ambulatory Fernanda Graham Other [employer] Other Start: 08-14-2022 Telephone encounter Fernanda Graham [facility] [address] Start: 08-12-2022 End: 08-13-[address] JOSE VALDOVINOS Facility: Start: 08-06-2022 End: 08-06-2022 ambulatory Alise ler Other [employer] Other Start: 08-06-2022 Telephone encounter Alise [facility] Start: 07-18-2022 End: 07-18-2022 ambulatory Alise Missler Other [employer] Other Start: 07-18-2022 Nutrition therapy Alise ler relands [facility] Start: 07-18-2022 Telephone encounter Alise [facility] Start: 07-18-2022 Registered Recurring DO Jose O berer Work Phone: [facility]-Weight Management Work Phone: Start: 07-16-2022 Office outpatient vi sit 25 minutes Jose L Oberer Work Phone: [facility] Heart-[place] 250 DO Work Phone: Start: 07-16-[address] Danisha Bran Facility: Start: 07-03-2022 End: 07-03-2022 ambulatory Kevyn Cat MANISH Work Phone: Neurosurgery Comment on above: Lumbar radiculopathy (Primary Dx) Start: 07-03-2022 End: 07-03-2022 Telemedicine consultation with patient Kevyn Cat RAIMUNDO-Jacqueline Work Phone: [facility] Start: 07-02-2022 ambulatory Loyda Steele MD Work Phone: Neurosurgery Comment on above: Mary Jimenez`stan 07/03/22 video conference call-in Meeting Start: 06-16-2022 End: 06-16-2022 Admission to same day surgery center DO Jose Oberer Work Phone: [facility]-Surgery Center [facility] Start: 06-16-2022 End: 06-16-2022 ambulatory DO Jose Oberer Work Phone: [facility] Work Phone: Start: 06-12-2022 End: 06-12-2022 ambulatory DO Jose Oberer Work Phone: [facility] Work Phone: Start: 06-12-2022 End: 06-12-2022 Patient encounter procedure DO Jose Oberer Work Phone: [facility]-Pre-Surgical Testing Start: 06-10-2022 End: 06-10-2022 ambulatory Loyda Steele MD Work Phone: Neurosurgery Comment on above: 3 blood test needed Start: 06-10-2022 End: 06-10-2022 Discharged Recurring DO Jose Oberer Work Phone: [facility]-Physical Therapy [facility] Start: 06-10-2022 Registered Recurring DO Jose O berer Work Phone: [facility]-Physical Therapy [address] Start: 06-05-2022 End: 06-06-[address] JOSE VALDOVINOS Facility: Start: 06-02-2022 End: 06-02-2022 ambulatory Raquel Montague Other [facility] Other Start: 06-02-2022 Telephone encounter Raquel Montague [facility] Start: 06-02-2022 End: 06-02-2022 Patient encounter procedure DO Jose Valdovinos Work Phone: [facility]-Pre-Surgical Testing Start: 05-28-2022 End: 05-28-2022 Patient encounter procedure KRISTI BLAKE [facility] Start: 05-27-2022 End: 05-27-2022 ambulatory Jose Valdovinos Other [employer] Other Start: 05-27-2022 Office outpatient vi sit 25 minutes Jose Valdovinos [facility] Start: 05-27-2022 End: 05-27-2022 Patient encounter procedure Rafael Zheng [facility] Start: 05-16-2022 End: 05-21-2022 Pre-admission assessment Se Rodriges [facility] Start: 05-12-2022 End: 05-12-2022 ambulatory GROUNDS PERSON Fernanda Graham Work Phone: [facility] Work Phone: Start: 05-12-2022 End: 05-12-2022 Patient encounter procedure GROUNDS PERSON Fernanda Graham Work Phone: [facility]-Lab [facility] Start: 05-09-2022 ambulatory Kevyn Shiffle tt PA-C Work Phone: Radiology Comment on above: Thursday [facility] Start: 05-08-2022 End: 05-08-2022 Patient encounter procedure Rafael Zheng [facility] Start: 05-06-2022 End: 05-06-2022 Patient encounter procedure Xavi Smith [facility] Start: 05-06-2022 End: 05-06-2022 ambulatory GROUNDS PERSON Fernanda Grahma Work Phone: [facility] Work Phone: Start: 05-05-2022 ambulatory Joseida Valdovinos Facilit [id number] Start: 05-03-2022 End: 05-06-2022 Evaluation and management of inpatient GROUNDS PERSON Fernanda Graham Work Phone: [facility] Start: 05-03-2022 End: 05-06-2022 observation encounter GROUNDS PERSON Fernanda Graham Work Phone: [facility] Work Phone: Start: 04-30-2022 Registered Recurring GROUNDS PERSON Fernanda Graham Work Phone: [facility]-Physical Therapy [address] Start: 04-29-2022 Telephone encounter Guillaume Bhandari DO Work Phone: [facility] [place] Comment on above: Preparations For Pro cedures Start: 04-25-2022 Telephone encounter Guillaume Bhandari DO Work Phone: [facility] [place] Comment on above: Preparations For Pro cedures Start: 04-23-2022 Telephone encounter Loyda hernandez MD Work Phone: Neurology Comment on above: Forms (POC from [facility] requesting signature) Start: 04-17-2022 Telephone encounter Loyda hernandez MD Work Phone: Neurology Comment on above: Patient Question Start: 04-16-2022 Orders Only Guillaume contreras DO Work Phone: Spine Medicine Comment on above: Putti's syndrome (Pr imary Dx) Start: 04-11-2022 End: 04-11-2022 ambulatory Jose Oberer Other [employer] Other Start: 04-11-2022 Office outpatient vi sit 25 minutes Jose Oberer [facility] [place] Start: 04-10-2022 ambulatory Laura Strine PA-C Work Phone: Neurosurgery Comment on above: injection Start: 04-10-2022 E-mail encounter fro m caregiver Laura Strine PA-C Work Phone: [facility] Start: 04-09-2022 End: 04-09-2022 Patient encounter procedure Laura Strine PA-C Work Phone: Neurosurgery Comment on above: Lumbar radiculopathy (Primary Dx) Start: 04-01-2022 Telephone encounter Christine Woodall'Varghese jose luis PA-C Work Phone: DENY Provider Adult Comment on above: Wound Care Start: 03-21-2022 Telephone encounter Loyda hernandez MD Work Phone: Neurology Comment on above: Received Outside Med ical Records Start: 03-21-2022 End: 03-21-2022 Patient encounter procedure PHYSICIAN NO [facility] Ctr-CT Scan [place] Start: 03-17-2022 End: 03-17-2022 ambulatory Jose Oberer Other [employer] Other Start: 03-17-2022 Telephone encounter Jose Oberer [facility] Family Medicine Zafar Martinez Start: 03-13-2022 ambulatory Loyda Steele MD Work Phone: [facility] Start: 03-13-2022 Follow-up encounter Loyda hernandez MD Work Phone: Neurosurgery Comment on above: Follow-up from Mary Jimenez 03/12 appointment Start: 03-12-2022 Telephone encounter Loyda hernandez MD Work Phone: Neurology Comment on above: creatinine level Refill Request Start: 03-10-2022 End: 03-10-2022 ambulatory Jose Oberer Other [facility] [facility] [employer] Other Start: 03-10-2022 Encounter by [employer] Jose Revelesgustabor [facility] Start: 03-05-2022 Refill Loyda Steele MD Work Phone: Neurology Comment on above: Refill Request Start: 03-01-2022 End: 03-01-2022 ambulatory Jose Oberer Other [employer] Other Start: 03-01-2022 Encounter by [employer] [facility] Start: 02-27-2022 End: 02-27-2022 Patient encounter procedure Kevyn Cat PA-C Work Phone: Neurosurgery Comment on above: 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) Start: 02-25-2022 End: 02-25-2022 ambulatory Fernanda Graham Other [facility] [employer] Other Start: 02-25-2022 Office outpatient vi sit 25 minutes Fernanda Graham [facility] Start: 02-25-2022 End: 02-25-2022 Patient encounter procedure DO Jose Oberer Work Phone: [facility] Start: 02-24-2022 Telephone encounter Loyda hernandez MD [...] Rx Renewal Jose L Oberer Work Phone: [facility]-[place] 250 DO Work Phone: Start: 02-18-2022 Telephone encounter Loyda hernandez MD Work Phone: Neurology Comment on above: Orders Start: 02-13-2022 End: 02-13-2022 Patient encounter procedure Kevyn Cat PA-C Work Phone: Neurosurgery Comment on above: Spondylolisthesis, l umbar region (Primary Dx) Radiculopathy, lumba r region Start: 02-10-2022 Telephone encounter Laura Baca PA-C Work Phone: Neurology Comment on above: Forms Start: 02-07-2022 Patient Msg Ccf Provider Monica cabello Comment on above: Lab order Start: 02-07-2022 End: 02-07-2022 Patient encounter procedure DO Jose Oberer Work Phone: [facility] Start: 02-06-2022 End: 02-06-2022 ambulatory Jose Oberer Other [facility] [employer] Other Start: 02-06-2022 Telephone encounter Jose Oberer [facility] Start: 01-30-2022 ambulatory Laura Strine PA-C Work Phone: Neurosurgery Comment on above: blood work Start: 01-30-2022 E-mail encounter emil m caregiver Laura Strine PA-C Work Phone: [facility] Start: 01-30-2022 End: 01-30-2022 Patient encounter procedure Laura Strine PA-C Work Phone: Neurosurgery Comment on above: Alteration in skin i ntegrity related to surgical incision (Primary Dx); Wound healing, delayed; Keloid Start: 01-28-2022 End: 01-28-2022 ambulatory Jose Oberer Other [employer] Other Start: 01-28-2022 Office outpatient vi sit 40 minutes Jose Revelesgustabomegan [facility] Start: 01-26-2022 End: 01-26-2022 ambulatory Jose Reveleserer Other [employer] Other Start: 01-26-2022 Encounter by erica adam Jose Abdirizakdiane [facility] Start: 01-17-2022 ambulatory Jose Reveleserer Facilit y: Start: 01-15-2022 End: 01-15-2022 Subsequent hospital visit by physician Sindhu Jones [facility] Radiology Comment on above: Radiculopathy, lumba r region [M54.16] Start: 01-07-2022 Telephone encounter Fredi salazar [facility] Comment on above: Home Care Start: 12-31-2021 ambulatory Bhavani Craig MD Work Phone: Neurosurgery Start: 12-31-2021 End: 01-06-2022 Evaluation and management of inpatient LOYDA STEELE Facility:[facility] Start: 12-19-2021 End: 12-19-2021 Patient encounter procedure DO Jose Valdovinos Work Phone: [facility] Start: 12-18-2021 Get Medical Advice Loyda tang MD Work Phone: Neurosurgery Comment on above: [facility] Ref ill Request To Mariluz Beltran/ Start: 12-18-2021 Patient encounter status Jeff Steele MD Work Phone: Neurosurgery Start: 12-17-2021 End: 12-17-2021 ambulatory Loyda Steele [...] type Refill Request Start: 12-17-2021 End: 12-17-2021 Admission to [place] [id number] Work Phone: [facility] Start: 12-17-2021 End: 12-17-2021 Patient encounter status [facility] 4 Work Phone: Pre Anesthesia Start: 12-12-2021 End: 12-12-2021 Patient encounter procedure DO Jose Oberer Work Phone: [facility] Start: 12-05-2021 ambulatory Loyda Steele MD Work Phone: Neurosurgery Comment on above: Patient Education Start: 12-05-2021 Patient encounter status Jeff Steele MD Work Phone: Neurosurgery Start: 12-05-2021 End: 12-05-2021 Patient encounter procedure DO Jose Oberer Work Phone: [facility] Start: 11-20-2021 End: 11-21-2021 Emergency department patient visit [facility] Start: 11-06-2021 Telephone encounter Loyda hernandez [...] with patient Loyda Steele MD Work Phone: [facility] Start: 10-21-2021 End: 10-21-2021 Patient encounter procedure Bakari Reyes MD Work Phone: [facility] Comment on above: Postoperative infect ion, [...] with patient Loyda Steele MD Work Phone: [facility] Start: 09-25-2021 End: 09-25-2021 [facility]Site [facility] Start: 09-23-2021 End: 09-23-2021 [facility]Site [facility] Start: 09-04-2021 End: 09-04-2021 Patient encounter procedure Loyda Steele MD Work Phone: Neurosurgery Comment on above: Spondylolisthesis of lumbar region (Primary Dx) Start: 08-16-2021 End: 08-20-2021 Evaluation and management of inpatient LOYDA STEELE Facility:[facility] Start: 08-07-2021 ambulatory JOSE PARAS OBERER Facilit y:[facility] Start: 07-23-2021 End: 07-23-2021 ambulatory Jose Oberer Other [employer] Other Start: 07-23-2021 Office outpatient vi sit 40 minutes Jose Oberer [facility] [address] Start: 07-11-2021 End: 07-11-2021 ambulatory Jose Oberer Other [employer] Other Start: 07-11-2021 Telephone encounter Jose Oberer [facility] [address] Start: 06-27-2021 End: 06-27-2021 ambulatory Jose Oberer Other [employer] Other Start: 06-27-2021 Office outpatient vi sit 15 minutes Jose Oberer [facility] [address] Start: 05-10-2021 End: 05-10-2021 ambulatory Jose Oberer Other [employer] Other Start: 05-10-2021 Telephone encounter Jose Oberer [facility] [address] Start: 05-09-2021 End: 05-09-2021 ambulatory Jose Oberer Other [employer] Other Start: 05-09-2021 Office outpatient vi sit 25 minutes Jose Oberer [facility] [address] Start: 02-14-2021 End: 02-14-2021 Subsequent hospital visit by physician Jeffery [facility] Maria Del Rosario (1.5t) Work Phone: Radiology Comment on above: 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 [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, G89.29] Procedures Date Procedure Procedure Detail Performing Clinician Start: 02-13-2025 Follow-up visit Follow Up JOSE OB ERER Start: 02-02-2025 [facility] Angio Jose Oberer DO Work Phone: Start: 02-02-2025 Jose Obere r DO Work Phone: Start: 01-31-2025 Lipid 1996 panel - S irma or Plasma Loyda Steele MD Work Phone: Start: 01-04-2025 Follow-up visit Follow Up LOYDA STEELE Start: 12-08-2024 Plain X-ray of right tibia and right fibula Jose Oberer DO Work Phone: Start: 11-23-2024 US, scrotum Jose Obere r DO Work Phone: Start: 10-27-2024 Injection single/auto top mechanic trigger point 1/2 muscles Ewa EUBANKS Work Phone: Start: 08-09-2024 Ct lumbar spine w/o contrast material Loyda Steele MD Work Phone: Start: 02-18-2024 End: 02-18-2024 Needle emg ea extremty w/paraspinl area complete Ewa EUBANKS Work Phone: Start: 02-16-2024 Injection single/auto top mechanic trigger point 1/2 muscles Ewa EUBANKS Work Phone: Start: 01-26-2024 X-ray of cervical spine DO Jose Oberer Work Phone: Start: 01-13-2024 X-ray of lumbar spin e, six views including bending views DO Jose Oberer Work Phone: Start: 11-09-2023 CT of paranasal sinu s without contrast DO Jose Oberer Work Phone: Start: 10-08-2023 Plain chest X-ray DO Ka rl Oberer Work Phone: Start: 08-19-2023 Colonoscopy DO Jose Ob erer [...] for ba cteria, including anaerobic screen DO Jose Oberer Work Phone: Start: 09-03-2022 Plain chest X-ray DO Ka rl Oberer Work Phone: Start: 09-03-2022 Duplex scan veins of upper limb DO Jose Oberer Work Phone: Start: 06-16-2022 Arthroscopy of knee DO Jose Oberer Work Phone: Start: 06-12-2022 SARS Antigen (LFIA) DO Jose Oberer Work Phone: Start: 05-05-2022 Radiography of thora cic spine GROUNDS PERSON Fernanda Graham Work Phone: Start: 05-05-2022 X-ray of lumbar spin e, two or three views GROUNDS PERSON Fernanda Graham Work Phone: Start: 05-04-2022 Doppler ultrasonogra phy of bilateral carotid arteries GROUNDS PERSON Fernanda Graham Work Phone: Start: 05-03-2022 Plain chest X-ray GROUNDS PERSON Pe ggy Graham Work Phone: Start: 05-03-2022 CT of head without contrast GROUNDS PERSON Fernanda Graham Work Phone: Start: 05-03-2022 SARS Antigen (LFIA) GROUNDS PERSON Fernanda Graham Work Phone: Start: 03-21-2022 CT of lumbar spine w ithout contrast PHYSICIAN NO FAMILY Start: 02-25-2022 X-ray of lumbar spin e, two or three views DO Jose Valdovinos Work Phone: Start: 02-07-2022 Adult depression scr eening assessment Ccf Provider Start: 01-15-2022 Radex spine lumbosac ral 2/3 views Loyda Steele MD Work Phone: Start: 01-14-2022 Adult depression scr eening assessment [facility] Start: 12-04-2021 Adult depression scr eening assessment Loyda Steele MD Work Phone: Start: 10-02-2021 Adult depression scr eening assessment Loyda Steele MD Work Phone: Start: 09-04-2021 Adult depression scr eening assessment Loyda Steele MD Work Phone: Start: 08-07-2021 Antibody screen LOYDA STEELE Comment on above: Performed By: #### T [id number] #### [place] [address] Start: 02-14-2021 Mri spinal canal lum bar w/o contrast material Gilmar Moore MD Work Phone: Start: 05-18-2020 Decompression of med jake nerve [...] Treatment Date Care Activity Detail Author Start: 10-23-2033 DTaP/Tdap/Td Vaccines (3 - Td or Tdap) DTaP/Tdap/Td Vaccines (3 - Td or Tdap) [facility] Start: 10-23-2033 Urine microalbumin profile DTaP,Tdap,Td Vaccine (3 - Td or Tdap) [facility] Start: 01-31-2030 Lipid panel Lipid Screening [facility] Start: 08-31-2029 Prostate specific antigen measurement Prostate Cancer Screening Discussion [facility] Start: 01-31-2026 Creatinine measurement Serum Creatinine [facility] Start: 11-30-2025 BP Controlled (<130/80) BP Controlled (<130/80) [facility] Start: 04-24-2025 End: 04-24-2025 Patient encounter procedure 04/24/2025 11:30 AM EDT Office Visit [facility] [address] [facility] [address] [place] [address] Danisha Bran MD [address] [facility] [address] [place], [place] [phone] [facility] Start: 03-24-2025 End: 03-24-2025 Patient encounter procedure 03/24/2025 9:30 AM EDT Office Visit [facility] [address] [address] Danisha Bran MD [address] [facility] [address] [place] [address] [facility] Start: 03-08-2025 End: 03-08-2025 Patient encounter procedure 03/08/2025 2:00 PM EDT Office Visit Neurosurgery [address] [place] [address] Loyda Steele MD [address] [place] [address] follow up Neurosurgery Comment on above: follow up Start: 03-06-2025 End: 03-06-2025 Patient encounter procedure 03/06/2025 9:20 AM EDT Office Visit [facility] [address] [place] [address] Rosey Dubose MD [address] [place] [address] [facility] Start: 02-27-2025 Influenza vaccination Influenza Vaccine (#1) [facility] Start: 02-13-2025 End: 02-13-2025 Patient encounter procedure 02/13/2025 8:30 AM EDT Office Visit [facility] [address] [address] Providers, Advanced Practice [address] [address] Kidney replaced by transplant (HCC) (Primary Dx) [facility] Comment on above: Kidney replaced by transplant (HCC) (Sneha krystyna Dx) Start: 02-02-2025 [facility] Start: 01-06-2025 DIABETES SCREEN DIABETES SCREEN [facility] Start: 01-06-2025 Diabetes Screening Diabetes Screening [facility] Start: 01-04-2025 End: 01-04-2025 Patient encounter procedure 01/04/2025 9:40 AM EDT Office Visit [facility] [address] [address] [place] [phone] Ramandeep Otto NP [address] [place] [phone] [facility] Start: 12-17-2024 DIABETES SCREEN DIABETES SCREEN [facility] Start: 11-30-2024 End: 11-30-2024 Patient encounter procedure 11/30/2024 11:40 AM EDT Office Visit Neurosurgery [address] [place] [address] Loyda Steele MD [address] [place] [address] Ordering Provider Via Office Visit: 2-4 weeks Neurosurgery Comment on above: Ordering Provider Via Office Visit: 2-4 weeks Start: 11-22-2024 DIABETES SCREEN DIABETES SCREEN [facility] Start: 11-14-2024 End: 11-14-2024 Patient encounter procedure 11/14/2024 10:00 AM EDT Procedure Visit [facility] [address] [place] [phone] Kg Carson DO [address] [place] [address] [facility] Start: 10-27-2024 End: 10-27-2024 Clinical Support [facility] Comment on above: Arrived Start: 10-10-2024 Covid-19 Vaccine () Covid-19 Vaccine () [facility] Start: 09-27-2024 End: 09-27-2024 Clinical Support 09/27/2024 2:00 PM EDT Clinical Support [facility] [address] [place] [phone] Ewa Rodriguez PA [address] [place] [address] Arrived [facility] I[facility] Comment on above: Arrived Start: 09-22-2024 DIABETES SCREEN DIABETES SCREEN [facility] Start: 09-15-2024 End: 09-15-2024 Admission to same day surgery center 09/15/2024 10:22 AM EDT - 09/15/2024 10:59 AM EDT Surgery Ambulatory Surgery [address] [place] [address] Guillaume Bhandari, DO [address] [place], [place] [phone] CERVICAL EPIDURAL BLOCK W/INJECTION(S) NON NEUROLYTIC SUBSTANCE(S) W/IMAGE GUIDANCE Ambulatory Surgery Comment on above: CERVICAL EPIDURAL BLOCK W/INJECTION(S) N ON NEUROLYTIC SUBSTANCE(S) W/IMAGE GUIDANCE Start: 09-15-2024 End: 09-15-2024 Njx dx/ther sbst intrlmnr crv/thrc w/img gdn CERVICAL EPIDURAL BLOCK W/INJECTION(S) NON NEUROLYTIC SUBSTANCE(S) W/IMAGE GUIDANCE Lumbar radiculopathy Cervical disc disorder with radiculopathy 09/15/2024 10:22 AM EDT DARIN GALVAN Start: 09-15-2024 Subsequent hospital visit by physician 09/15/2024 10:22 AM EDT Hospital Encounter Ambulatory Surgery [address] [place] [address] Guillaume Bhandari, DO [address] [place], [place] [phone] Lumbar radiculopathy [M54.16], Cervical disc disorder with radiculopathy [M50.10] Ambulatory Surgery Comment on above: Lumbar radiculopathy [M54.16], Cervical disc disorder with radiculopathy [M50.10] Start: 09-15-2024 End: 09-15-2024 Admission to same day surgery center 09/15/2024 9:18 AM EDT - 09/15/2024 9:55 AM EDT Surgery Ambulatory Surgery [address] [facility] [place] [address] Guillaume Bhandari, DO [address] [place], [place] [phone] CERVICAL EPIDURAL BLOCK W/INJECTION(S) NON NEUROLYTIC SUBSTANCE(S) W/IMAGE GUIDANCE Ambulatory Surgery Comment on above: CERVICAL EPIDURAL BLOCK W/INJECTION(S) N ON NEUROLYTIC SUBSTANCE(S) W/IMAGE GUIDANCE Start: 09-15-2024 End: 09-15-2024 Njx dx/ther sbst intrlmnr crv/thrc w/img gdn CERVICAL EPIDURAL BLOCK W/INJECTION(S) NON NEUROLYTIC SUBSTANCE(S) W/IMAGE GUIDANCE Lumbar radiculopathy Cervical disc disorder with radiculopathy 09/15/2024 9:18 AM EDT DARIN GALVAN Start: 09-15-2024 Subsequent hospital visit by physician 09/15/2024 9:18 AM EDT Hospital Encounter [facility] [address] [facility] [place] [address] Guillaume Bhandari, DO [address] [place] [address] Lumbar radiculopathy [M54.16], Cervical disc disorder with radiculopathy [M50.10] Ambulatory Surgery Comment on above: Lumbar radiculopathy [M54.16], Cervical disc disorder with radiculopathy [M50.10] Start: 09-05-2024 End: 09-05-2024 Patient encounter procedure 09/05/2024 10:00 AM EDT Office Visit [facility] [address] [place] [address] Rosey Dubose MD [address] [place] [address] [facility] Start: 08-25-2024 End: 08-25-2024 Admission to same day surgery center 08/25/2024 7:30 AM EST - 08/25/2024 8:07 AM EST Surgery Ambulatory Surgery [address] [place] [address] Guillaume hBandari, DO [address] [place] [address] CERVICAL EPIDURAL BLOCK W/INJECTION(S) NON NEUROLYTIC SUBSTANCE(S) W/IMAGE GUIDANCE Ambulatory Surgery Comment on above: CERVICAL EPIDURAL BLOCK W/INJECTION(S) N ON NEUROLYTIC SUBSTANCE(S) W/IMAGE GUIDANCE Start: 08-25-2024 End: 08-25-2024 Njx dx/ther sbst intrlmnr crv/thrc w/img gdn CERVICAL EPIDURAL BLOCK W/INJECTION(S) NON NEUROLYTIC SUBSTANCE(S) W/IMAGE GUIDANCE Lumbar radiculopathy 08/25/2024 7:30 AM EST [facility] Start: 08-25-2024 Subsequent hospital visit by physician 08/25/2024 7:30 AM EST Hospital Encounter Ambulatory Surgery [address] [place] [address] Guillaume Bhandari, [address] [place] [address] Lumbar radiculopathy [M54.16] Ambulatory Surgery Comment on above: Lumbar radiculopathy [M54.16] Start: 08-09-2024 End: 08-09-2024 Patient encounter procedure 08/09/2024 12:00 PM EST Appointment Radiology [address] [place] [address] CT LUMBAR SPINE WO IVCON Radiology Comment on above: CT LUMBAR SPINE WO IVCON Start: 08-03-2024 End: 08-03-2024 Patient encounter procedure [facility] Comment on above: Arrived Start: 07-20-2024 End: 07-20-2024 Patient encounter procedure 07/20/2024 1:00 PM EST Office Visit Neurosurgery [address] [place] [address] Loyda Steele MD [address] [place] [address] Neurosurgery Follow Up Neurosurgery Comment on above: Neurosurgery Follow Up Start: 07-13-2024 End: 07-13-2024 Patient encounter procedure 07/13/2024 10:00 AM EST Office Visit [place] [place] [address] Kg Carson DO [address] [place] [address] Arrived [facility] TRAN Comment on above: Arrived Start: 06-29-2024 Advance Directive Discussion Advance Directive Discussion [facility] Start: 06-29-2024 Medicare Advantage Annual Wellness Visit Medicare Advantage Annual Wellness Visit [facility] Start: 06-07-2024 End: 06-07-2024 Patient encounter procedure 06/07/2024 12:30 PM EST Office Visit [facility] [address] [phone] eS Rodriges MD [address] [place], [place] [phone] [facility] Start: 05-19-2024 End: 05-19-2025 MR Cervical spine WO contrast MR cervical spine wo contrast Imaging Routine Cervical radiculopathy Degenerative disc disease, cervical Hyper reflexia Expected: 05/19/2024 (Approximate), Expires: 05/19/2025 [facility] Work Phone: Comment on above: Expected: 05/19/2024 (Approximate), Expi res: 05/19/2025 Start: 05-19-2024 End: 05-19-[address] [facility] Comment on above: Arrived Start: 04-12-2024 End: 04-12-2024 Patient encounter procedure 04/12/2024 12:30 PM EDT Office Visit [facility] [address] [phone] Se Rodriges MD [address] [place] [address] [facility] Start: 04-08-2024 End: 04-08-2024 Patient encounter procedure 04/08/2024 8:30 AM EDT Office Visit [facility] [address] [facility] [address] [place] [phone] Danisha Bran MD [address] [facility] [address] [place] [address] [facility] Start: 02-28-2024 Covid-19 Vaccine () Covid-19 Vaccine () [facility] Start: 02-28-2024 Covid-19 Vaccine ( season) Covid-19 Vaccine () [facility] Start: 02-28-2024 Influenza vaccination [facility] Start: 02-25-2024 End: 02-25-2024 Patient encounter procedure 02/25/2024 2:00 PM EDT Office Visit [facility] [address] [facility] [address] [place] [phone] Se Rodriges MD [address] [place] [address] [facility] Start: 02-18-2024 End: 02-18-2024 Patient encounter procedure [facility] Comment on above: Arrived Start: 02-16-2024 End: 08-18-2024 EMG 2 Extremities EMG 2 Extremities Neurology Routine Cervical radiculopathy Degenerative disc disease, cervical Carpal tunnel syndrome, bilateral upper limbs Expected: 02/16/2024 (Approximate), Expires: 08/18/2024 [facility] Work Phone: Comment on above: Expected: 02/16/2024 (Approximate), Expi res: 08/18/2024 Start: 02-16-2024 End: 02-16-2024 Patient encounter procedure 02/16/2024 8:20 AM EDT Office Visit [facility] [address] [place] [phone] Ewa Rodriguez PA [address] [place] [address] Arrived [facility] Comment on above: Arrived Start: 01-26-2024 Patient referral [facility] Work Phone: Start: 08-19-2023 [facility] Start: 07-28-2023 [facility] Start: 06-29-2023 Behavioral Health Screening Behavioral Health Screening [facility] Start: 04-09-2023 FUV, Provider: Danisha Bran, Status: Pen, Time: 2:50 PM FUV, Provider: Danisha Bran, Status: Pen, Time: 2:50 PM -[facility] [address] DO Work Phone: Start: 02-27-2023 Covid-19 Vaccine () Covid-19 Vaccine () [facility] Start: 02-13-2023 BP CONTROLLED (<130/80) BP CONTROLLED (<130/80) [facility] Start: 02-07-2023 Adult depression screening assessment DEPRESSION SCREENING [facility] Start: 01-30-2023 BP CONTROLLED (<130/80) BP CONTROLLED (<130/80) [facility] Start: 01-15-2023 BP CONTROLLED (<130/80) BP CONTROLLED (<130/80) [facility] Start: 01-14-2023 Adult depression screening assessment DEPRESSION SCREENING [facility] Start: 01-06-2023 Creatinine measurement Serum Creatinine [facility] Start: 01-06-2023 SERUM CREATININE SERUM CREATININE [facility] Start: 12-17-2022 BP CONTROLLED (<130/80) BP CONTROLLED (<130/80) [facility] Start: 12-17-2022 HEMOGLOBIN/HEMATOCRIT HEMOGLOBIN/HEMATOCRIT [facility] Start: 12-17-2022 SERUM CREATININE SERUM CREATININE [facility] Start: 12-04-2022 Adult depression screening assessment DEPRESSION SCREENING [facility] Start: 11-27-2022 SERUM CREATININE SERUM CREATININE [facility] Start: 10-24-2022 FUV, Provider: Danisha Bran, Status: Pen, Time: 11:10 AM FUV, Provider: Danisha Bran, Status: Pen, Time: 11:10 AM [facility] [address] DO Work Phone: Start: 10-09-2022 BP CONTROLLED (<130/80) BP CONTROLLED (<130/80) [facility] Start: 10-02-2022 Adult depression screening assessment DEPRESSION SCREENING [facility] Start: 09-22-2022 SERUM CREATININE SERUM CREATININE [facility] Start: 09-05-2022 BP CONTROLLED (<130/80) BP CONTROLLED (<130/80) [facility] Start: 09-04-2022 Adult depression screening assessment DEPRESSION SCREENING [facility] Start: 07-16-2022 FUV, Provider: Danisha Bran, Status: Pen, Time: 3:50 PM FUV, Provider: Danisha Bran, Status: Pen, Time: 3:50 PM [facility] [address] DO Work Phone: Start: 06-29-2022 DEPRESSION ASSESSMENT DEPRESSION ASSESSMENT [facility] Start: 06-16-2022 [facility] Start: 06-16-2022 [facility] Start: 05-06-2022 [facility] Start: 05-06-2022 [facility] Start: 05-06-2022 Referral to face painter [facility] Start: 05-05-2022 MR Lumbar spine WO and W contrast IV [facility] Start: 05-05-2022 MRI of lumbar spine with contrast MR lumbar spine wo/w con [facility] Start: 05-04-2022 Blood chemistry [facility] Start: 05-04-2022 Lipid panel [facility] Start: 05-04-2022 End: 05-04-2022 [facility] Start: 05-03-2022 Hospital admission [facility] Start: 05-03-2022 Doppler ultrasonography of bilateral carotid arteries US carotid doppler BI [facility] Start: 05-03-2022 Physical therapy procedure [facility] Start: 05-03-2022 Referral to neurologist [facility] Start: 05-03-2022 Referral to occupational therapist [facility] Start: 05-03-2022 [facility] Start: 05-03-2022 [facility] Start: 03-20-2022 End: 04-12-2023 Ct lumbar spine w/o contrast material CT LUMBAR SPINE WO IVCON Radiology Routine Acute bilateral low back pain with left-sided sciatica Expected: 03/20/2022, Expires: 04/12/2023 [facility] Work Phone: Comment on above: Expected: 03/20/2022, Expires: 3 Start: 02-27-2022 COVID-19 VACCINE (4 - Booster for Sarah series) COVID-19 VACCINE (4 - Booster for Sarah series) [facility] Start: 02-27-2022 Influenza vaccination INFLUENZA (#1) [facility] Start: 02-25-2022 X-ray of lumbar spine, two or three views XR lumbar spine 2-3V* [facility] Start: 02-25-2022 End: 02-25-2022 Patient encounter procedure Departed Clinical [facility] Start: 02-24-2022 End: 04-26-2022 CREATININE BLD CREATININE BLD Lab Routine Spinal stenosis of lumbar region with neurogenic claudication Expected: 02/24/2022, Expires: 04/26/2022 [facility] Work Phone: Comment on above: Expected: 02/24/2022, Expires: 2 Start: 02-07-2022 End: 04-09-2022 Basic metabolic 2000 panel - Serum or Plasma BASIC METABOLIC PNL Lab Routine Medication monitoring encounter Expected: 02/07/2022, Expires: 04/09/2022 [facility] Work Phone: Comment on above: Expected: 02/07/2022, Expires: 2 Start: 12-20-2021 End: 12-05-2022 SARS-CoV-2 (COVID-19) RNA [Presence] in Respiratory specimen by LATOYA with probe detection PRE-PROCEDURE & PRE-OPERATIVE COVID Microbiology Routine Pre-op testing Expected: 12/20/2021 (Approximate), Expires: 12/05/2022 [facility] Work Phone: Comment on above: Expected: 12/20/2021 (Approximate), Expi res: 12/05/2022 Start: 12-17-2021 End: 02-16-2022 TYPE AND SCREEN,30 DAY [facility] Work Phone: Comment on above: Expected: 12/17/2021, Expires: Start: 08-26-2021 COVID-19 VACCINE (3 - Booster for Sarah series) COVID-19 VACCINE (3 - Booster for Sarah series) [facility] Start: 06-29-2021 DEPRESSION ASSESSMENT DEPRESSION ASSESSMENT [facility] Start: 05-23-2021 COVID-19 VACCINE (2 - Moderna 3-dose series) COVID-19 VACCINE (2 - Moderna 3-dose series) [facility] Start: 03-28-2021 DTaP/Tdap/Td Vaccines (2 - Td or Tdap) DTaP/Tdap/Td Vaccines (2 - Td or Tdap) [facility] Start: 03-28-2021 Urine microalbumin profile [facility] Start: 2019 RSV Vaccine (1 - 1-dose 60+ series) RSV Vaccine (1 - 1-dose 60+ series) [facility] Start: 2019 RSV Vaccine (1 - Risk 60-74 years 1-dose series) RSV Vaccine (1 - Risk 60-74 years 1-dose series) [facility] Start: 2014 PROSTATE CANCER SCREENING DISCUSSION PROSTATE CANCER SCREENING DISCUSSION [facility] Start: 2014 Prostate specific antigen measurement Prostate Cancer Screening Discussion [facility] Start: 09-03-2011 Colonoscopy COLONOSCOPY [facility] Start: 09-03-2011 COLORECTAL CANCER SCREENING COLORECTAL CANCER SCREENING [facility] Start: 2009 Prostate specific antigen measurement PSA Prostate Cancer Screening [facility] Start: 2004 COLOGUARD (FIT-DNA) COLOGUARD (FIT-DNA) [facility] Start: 2004 Colonoscopy COLONOSCOPY [facility] Start: 2004 COLORECTAL CANCER SCREENING COLORECTAL CANCER SCREENING [facility] Start: [address] COLONOGRAPHY [facility] Start: 2004 FECAL OCCULT BLOOD FECAL OCCULT BLOOD [facility] Start: 2004 Screening for malignant neoplasm of colon [facility] Start: 2004 SIGMOIDOSCOPY SIGMOIDOSCOPY [facility] Start: 1994 Lipid panel Lipid Screening [facility] Start: 1994 LIPID SCREEN LIPID SCREEN [facility] Start: 1977 ANNUAL PCP TEAM CHRONIC DISEASE VISIT ANNUAL PCP TEAM CHRONIC DISEASE VISIT [facility] Start: 1977 Anxiety Screening Anxiety Screening [facility] Start: 1977 BP CONTROLLED (<130/80) BP CONTROLLED (<130/80) [facility] Start: 1977 Depression Screening Depression Screening [facility] Start: 1977 Diabetes mellitus screening Diabetes Screening [facility] Start: 1977 HEPATITIS C SCREENING HEPATITIS C SCREENING [facility] Start: 1977 Hepatitis C screening Hepatitis C Screening [facility] Start: 1977 HIV SCREENING HIV SCREENING [facility] Start: 1977 HIV screening HIV Screening [facility] Start: 1964 COVID-19 VACCINE (1) COVID-19 VACCINE (1) [facility] Start: 1960 MMR Vaccines (1 of 1 - Standard series) MMR Vaccines (1 of 1 - Standard series) [facility] Start: 1959 HIV screening HIV Screening [facility] Start: 1959 Lipid panel Lipid Panel [facility] Start: 1959 Medicare Annual Wellness Visit Medicare Annual Wellness Visit (AWV) [facility] Start: 1959 Screening for malignant neoplasm of colon [facility] Bacteria identified in Wound by Culture WOUND CULTURE AND GRAM STAIN Microbiology Routine Wound healing, delayed 01/30/2022 12:24 PM EDT [facility] Work Phone: Cardiac Catheterizat ion - Onbase Scan Cardiac Catheterization - Onbase Scan Cardiac Cath Routine Shortness of breath on exertion Angina pectoris Ordered: 01/26/2025 [facility] Service Area Work Phone: Comment on above: Ordered: 01/26/2025 End: 08-19-2025 CT Lumbar spine WO contrast CT LUMBAR SPINE WO IVCON Radiology Routine Radiculopathy of lumbar region 1 Occurrences starting 07/20/2024 until 08/19/2025 [facility] Work Phone: Comment on above: 1 Occurrences starting 07/20/2024 until 08/19/2025 Elastase.pancreatic [Mass/mass] in Stool [facility] End: 11-30-2025 EMG(NEURO/NI) EMG(NEURO/NI) EMG Routine Lumbar radiculopathy 1 Occurrences starting 11/30/2024 until 11/30/2025 [facility] Comment on above: 1 Occurrences starting 11/30/2024 until 11/30/2025 Glucose measurement estimated from glycated hemoglobin [facility] Hepatic function panel [facility] Hepatic function panel [facility] Hepatic function panel [facility] IgG [Mass/volume] in Serum or Plasma [facility] IgG [Mass/volume] in Serum or Plasma [facility] Patient Education [facility] Work Phone: Patient referral [facility] Work Phone: Radex spine lumbosac ral 2/3 views XR LUMBAR LIMITED 2V AP/LAT Radiology Routine Radiculopathy, lumbar region 01/15/2022 12:35 PM EDT [facility] Work Phone: End: 03-23-2023 Radex spine lumbosacral 2/3 views XR LUMBAR LIMITED 2V AP/LAT Radiology Routine Lumbar radiculopathy 1 Occurrences starting 02/21/2022 until 03/23/2023 [facility] Work Phone: Comment on above: 1 Occurrences starting 02/21/2022 until 03/23/2023 SPINE INTERVENTION PROCEDURE SPINE INTERVENTION PROCEDURE Procedures Routine Spinal stenosis of lumbar region with neurogenic claudication Ordered: 04/01/2022 [facility] Work Phone: Comment on above: Ordered: 04/01/2022 SPINE INTERVENTION PROCEDURE SPINE INTERVENTION PROCEDURE Procedures Routine Lumbar radiculopathy Ordered: 04/14/2022 [facility] Work Phone: Comment on above: Ordered: 04/14/2022 SPINE INTERVENTION PROCEDURE SPINE INTERVENTION PROCEDURE Procedures Routine Lumbar radiculopathy Radiculopathy of lumbar region Cervical disc disorder with radiculopathy Ordered: 07/20/2024 [facility] Comment on above: Ordered: 07/20/2024 SPINE INTERVENTION PROCEDURE SPINE INTERVENTION PROCEDURE Procedures Routine Lumbar radiculopathy Ordered: 11/30/2024 [facility] Work Phone: Comment on above: Ordered: 11/30/[address] [facility] XR Cervical spine 5 Views [facility] Immunizations Immunization Date Immunization Notes Care Provider Vincent wetzel 07-21-2024 RSV, bv, preFa and preFb, pf Jose Oberer DO Work Phone: [facility] 04-11-2024 COVID-19 (NOVAVAX) 12Y and older Jose Oberer DO Work Phone: [facility] 04-11-2024 influenza virus vaccine, unspecified formulation Gilmar RODRICK [facility] 04-11-2024 Seasonal, trivalent, recombinant, injectable influenza vaccine, preservative free Jose Oberer DO Work Phone: [facility] 10-24-2023 tetanus toxoid, reduced diphtheria toxoid, and acellular pertussis vaccine, adsorbed DO Jose Oberer Work Phone: [facility] 10-07-2023 Seasonal, quadrivalent, recombinant, injectable influenza vaccine, preservative free DO Jose Oberer Work Phone: [facility] 10-07-2023 influenza virus vaccine, unspecified formulation Ewa EUBANKS Work Phone: [facility] 08-21-2023 influenza virus vaccine, unspecified formulation Gilmar EDUARDO [facility] 08-21-2023 Seasonal, quadrivalent, recombinant, injectable influenza vaccine, preservative free DO Jose Oberer Work Phone: [facility] 06-16-2023 COVID-19 (PFIZER) 12Y and older DO Jose Oberer Work Phone: [facility] 05-01-2023 Prevnar 20 Jose Oberer Other [facility] 05-01-2023 influenza, injectabl e, quadrivalent, preservative free Jose Oberer Other [facility] 05-01-2023 influenza virus vaccine, unspecified formulation Gilmar EDUARDO [facility] 04-11-2022 influenza, injectabl e, quadrivalent, preservative free Jose Oberer Other [facility] 04-11-2022 Pfizer COVID-19 Vac Bivalent 30 MCG/0.3ML Intramuscular Suspension Jose L Oberer Work Phone: [facility] 250 DO Work Phone: 04-11-2022 influenza virus vaccine, unspecified formulation Laura Truong RN [facility] 04-02-2022 influenza virus vaccine, unspecified formulation Gilmar EDUARDO [facility] 04-02-2022 influenza, seasonal, injectable Jose L Oberer Work Phone: [facility] 250 DO Work Phone: Comment on above: Series: 01-02-2022 COVID-19 vaccine, ag e 12+ yr ([employer]FaceAlertaNTBonzerDarg - KING TOP) Fredi Sylvester [facility] 01-02-2022 SARS-CoV-2 mRNA (luzpzuoknen-cojp-sbjz ose) vaccine Gilmar EDUARDO [facility] Comment on above: Result Comment: 2024: [id number] 04-25-2021 COVID-19 Vaccine Moderna - Documentation Purposes Only Jose Oberer Other [facility] 04-25-2021 influenza virus vaccine, unspecified formulation Gilmar Panjo [facility] 04-25-2021 Influenza, injectabl e, Madin Louisa Canine Kidney, preservative free, quadrivalent Loyda Steele MD Work Phone: [facility] 04-25-2021 influenza, seasonal, injectable Jose Oberer Other [facility] 09-04-2020 COVID-19 Vaccine Sarah - Documentation Purposes Only Jose Oberer Other [facility] 06-12-2020 zoster vaccine recombinant Jose Oberer Other [facility] 04-16-2020 influenza, seasonal, injectable, preservative free Kg Carson DO Work Phone: [facility] 04-12-2020 influenza virus vaccine, unspecified formulation Gilmar Panjo [facility] 04-12-2020 Seasonal, quadrivalent, recombinant, injectable influenza vaccine, preservative free Loyda Steele MD Work Phone: [facility] 04-12-2020 zoster vaccine recombinant Jose Oberer Other [facility] 04-12-2020 influenza, seasonal, injectable Jose Oberer Other [facility] 02-28-2020 influenza virus vaccine, unspecified formulation Gilmar EDUARDO [facility] 02-28-2020 influenza, high dose seasonal, preservative-free Loyda Steele MD Work Phone: [facility] 03-25-2019 influenza virus vaccine, unspecified formulation Gilmar EDUARDO [facility] 03-25-2019 influenza, injectabl e, quadrivalent, preservative free Loyda Steele MD Work Phone: [facility] 02-27-2019 influenza, high dose seasonal, preservative-free Christopher Alli DO Work Phone: [facility] 04-29-2018 influenza, injectabl e, quadrivalent, preservative free Christopher Alli DO Work Phone: [facility] 04-26-2018 influenza virus vaccine, unspecified formulation Gilmar EDUARDO [facility] 04-26-2018 influenza, seasonal, injectable Jose Oberer Other [facility] 01-27-2018 influenza virus vaccine, unspecified formulation Jose L Oberer Work Phone: [place] [address] DO Work Phone: 04-21-2017 influenza virus vaccine, unspecified formulation Gilmar RODRICK [facility] 04-21-2017 influenza, injectabl e, quadrivalent, preservative free Jose Oberer Other [facility] 01-27-2017 influenza virus vaccine, unspecified formulation Jose L Oberer Work Phone: [facility] 01-27-2017 influenza, injectabl e, quadrivalent, preservative free Loyda Steele MD Work Phone: [facility] 03-04-2016 influenza virus vaccine, unspecified formulation Jose L Oberer Work Phone: [place] [address] DO Work Phone: 02-28-2016 influenza virus vaccine, unspecified formulation Gilmar EDUARDO [facility] 02-28-2016 influenza, seasonal, injectable Jose Oberer Other [facility] 04-04-2015 influenza, injectabl e, quadrivalent, preservative free Kg Carson DO Work Phone: [facility] 12-08-2014 pneumococcal polysaccharide vaccine, 23 valent Loyda Steele MD Work Phone: [facility] 12-07-2014 influenza virus vaccine, unspecified formulation Jose L Oberer Work Phone: [place] [address] DO Work Phone: 12-07-2014 pneumococcal polysaccharide vaccine, 23 valent Jose L Oberer Work Phone: [place] [address] DO Work Phone: 05-01-2014 influenza virus vaccine, unspecified formulation Jose L Oberer Work Phone: [facility] 250 DO Work Phone: 04-21-2014 influenza virus vaccine, unspecified formulation Gilmar EDUARDO [facility] 04-21-2014 influenza, seasonal, injectable Loyda Steele MD Work Phone: [facility] 04-07-2013 influenza virus vaccine, unspecified formulation Jose L Oberer Work Phone: [place] [address] DO Work Phone: 06-29-2011 influenza, seasonal, injectable Danisha Bran MD Work Phone: [facility] Work Phone: 03-28-2011 influenza virus vaccine, unspecified formulation Gilmar EDUARDO [facility] 03-28-2011 influenza, seasonal, injectable Jose Oberer Other [facility] 03-28-2011 tetanus toxoid, adsorbed Jose Oberer Other [facility] 03-28-2011 tetanus toxoid, reduced diphtheria toxoid, and acellular pertussis vaccine, adsorbed Jose Oberer Other [facility] 09-12-2009 influenza virus vaccine, unspecified formulation Jose L Oberer Work Phone: [facility] 250 DO Work Phone: influenza virus vaccine, unspecified formulation Jose L Oberer Work Phone: [place] [address] DO Work Phone: Comment on above: 2011 NEGATED: Highlighted row has not occurred!01-02-2022 COVID-19 vaccine, age 12+ yr (PFIZER-BIONTBonzerDarg - [place] TOP) Fredi Sylvester [facility] Comment on above: Deferred: - not give n on last shift per report Deferred: Patient Re fused - pt having increasing pain; does not want at this time Payers Date Payer Category Payer Private Health Insurance [employer] [id number] 2024 Unknown [id number] 2024 Medicare [id number] 2024 Self-pay [id number] 2022 Unknown 2021 Medicare MMO MEDICARE MMO MEDADVANTAGE O [id number] 2021-Present [phone] [address] [place] [address] [facility] [id number] 2021 Medicare (Managed Care) 1.2. [id number] 5 2016 Medicare [id number] .[id number] 1959 Medicare [id number] 2.16.840.1.354170.19 1959 Unknown [id number] 2.16.840.1.954023.3.579 .2.356 1959 Unknown [id number] 2.16.840.1.230213.3.579 .2.356 1959 Unknown [id number] 2.16.840.1.350562.3.579 .2.356 1959 Unknown [id number] 2.16.840.1.168057.3.579 .2.593 1959 Unknown [id number] 2.16.840.1.540463.3.579 .2.593 1959 Unknown [id number] 2.16.840.1.525318.3.579 .2.593 1959 Unknown [id number] 2.16.840.1.901420.3.579 .2.593 1959 Unknown [id number] 2.16.840.1.472609.3.579 .2.593 1959 Unknown [id number] 2.16.840.1.432783.3.579 .2.593 1959 Unknown [id number] 2.16.840.1.689082.3.579 .2.727 1959 Unknown [id number] 2.16.840.1.615464.3.579 .2.727 1959 Unknown [id number] 2.16.840.1.010489.3.579 .2.1259 1959 Unknown [id number] 2.16.840.1.800660.3.579 .2.1259 1959 Unknown [id number] 2.16.840.1.127117.3.579 .2.1259 1959 Unknown [id number] 2.16.840.1.603904.3.579 .2.1259 1959 Unknown [id number] 2.16.840.1.750490.3.579 .2.1259 1959 Unknown [id number] 2.16.840.1.612661.3.579 .2.1259 1959 Unknown [id number] 2.16.840.1.088390.3.579 .2.1259 1959 Unknown [id number] 2.16.840.1.428869.3.579 .2.1259 1959 Unknown [id number] 2.16.840.1.278167.3.579 .2.196 1959 Unknown [id number] 2.16.840.1.392553.3.579 .2.727 1959 Unknown [id number] 2.16.840.1.345687.3.579 .2.727 1959 Unknown [id number] 2.16.840.1.048210.3.579 .2.727 1959 Unknown [id number] 2.16.840.1.801420.3.579 .2.1244 1959 Unknown [id number] 2.16.840.1.540610.3.579 .2.1244 Medicare Medicare [id number] Unknown [id number] 2.16.840.1.384100.3.579 .2.531 Unknown [id number] 2.16.840.1.173255.3.579 .2.531 Unknown [id number] 2.16.840.1.215523.3.579 .2.531 Unknown [id number] 2.16.840.1.915819.3.579 .2.531 Unknown [id number] 2.16.840.1.039172.3.579 .2.531 Unknown [id number] 2.16.840.1.010563.3.579 .2.531 Unknown [id number] 2.16.840.1.977966.3.579 .2.531 Unknown [id number] 2.16.840.1.564528.3.579 .2.531 Unknown [id number] 2.16.840.1.176343.3.579 .2.531 Social History Date Type Detail Facility Tobacco smoking status Unknown if ever sm [email or web address] Start: 08-28-2023 End: 07-20-2024 Sex Assigned At Male [facility] Other Start: 06-07-2014 End: 01-31-2025 Tobacco smoking status NHIS Never smoked tobacco [facility] Start: 06-07-2014 End: 02-13-2022 Tobacco use and exposure Smokeless tobacco non-user [facility] Start: 08-07-2021 End: 01-04-2025 Alcohol intake Current drinker of alcohol (finding) [facility] Start: 08-07-2021 History SDOH Alcohol Comment 2 glasses of wine per day. [facility] Start: 1960 Sex Assigned At Male [facility] Start: 01-15-2021 End: 07-22-2024 Exposure to SARS-CoV-2 (event) Not sure [facility] Start: 11-22-2021 History SDOH Financial 5 [facility] Start: 11-22-2021 History SDOH Food Worry 1 [facility] Start: 11-22-2021 History SDOH Transpo rt Med 2 [facility] Start: 08-28-2023 End: 07-20-2024 Daily caffeine consumption, 2-3 servings a day Daily caffeine consumption, 2-3 servings a day [facility] Comment on above: 1-2 glasses of wine daily; Tobacco smoking status [facility] Start: 05-06-2022 Tobacco smoking stat us [facility] Smoker (finding) [facility] Start: 08-28-2023 Alcohol Comment daily [facility] Work Phone: Start: 1960 Sex Assigned At Not on file [facility] Work Phone: Start: 05-30-2012 End: 05-23-2022 How hard is it for you to pay for the very basics like food, housing, medical care, and heating Not hard at all [facility] (I/We) worried wheth er (my/our) food would run out before (I/we) got money to buy more. Never true [facility] In the past 12 month s, was there a time when you were not able to pay the mortgage or rent on time? No [facility] Start: 01-28-2021 Gender identity Identifies as male gender (finding) [facility] Start: 01-28-2021 Sexual orientation Heterosexual (onur mcguire) [facility] Start: 07-18-2014 Alcohol Comment 1-2 drinks/d [facility] How often to you hav e a drink containing alcohol? 4 or more times a week [facility] How many standard drinks containing alcohol do you have on a typical day? 1 or 2 [facility] How often do you hav e 6 or more drinks on 1 occasion? Never [facility] Start: 10-24-2023 Sexual orientation Bisexual (finding ) [facility] Start: 08-27-2013 End: 05-06-2024 Sex Male (finding) [facility] Medical Equipment Procedure Code Equipment Code Equipment Origin al Text Equipment Identifier Dates [id number] FDA Start: 06-06-2019 FDA Start: 07-19-2019 FDA Start: 07-19-2019 Graft Bn Infs Rhbmp-2 5.6ml - [id number] Start: 12-07-2014 Graft Bn Canc 15 ml Allgrft - [id number] Start: 12-07-2014 Graft Bn Canc 15 ml Allgrft - [id number] Start: 12-07-2014 Graft Bn Canc 15 ml Allgrft - [id number] Start: 12-07-2014 Graft Infuse 14m m Small Bovine Collagen Rhbmp-2 23mm Bone Absorbable Sponge - [id number] Start: 08-16-2021 Cyw-Qk-S-Kind Implant - [id number] Start: 12-07-2014 Comment on above: Description: C1713 P LATE JAZMIN SPNL Zvx-Ye-H-Kind Implant - [id number] Start: 12-07-2014 Comment on above: Description: C1713 S CREW BN 1.5MM 50MM Ugh-Ov-W-Kind Implant - [id number] Start: 12-07-2014 Comment on above: Description: C1769 W ZULY FIX KRSH SHRP CNN SPNL Cornell Jordana 3 Ti - [id number] Start: 12-07-2014 Jrd-Eh-Z-Kind Implant - [id number] Start: 12-07-2014 Comment on above: Description: C1713 S CREW BN SPNL 5MM 25MM Ujr-Tu-K-Kind Implant - [id number] Start: 12-07-2014 Comment on above: Description: C1713 5 .0X20MM SCREW Kxs-Jk-H-Kind Implant - [id number] Start: 12-07-2014 Comment on above: Description: 14MMX 2 2X30MM X 4 DEG VERTEBR Prolift Expandab le Spacer [id number] Start: 08-16-2021 Screw Jordana 3 Titanium Set Cornell Spine - [id number] Start: 08-16-2021 Lamonte Jordana 3 6mm Titanium 50mm Spinal Radiolucent - [id number] Start: 08-16-2021 Lamonte Jordana 3 6mm Titanium 70mm Spinal Radiolucent - [id number] Start: 08-16-2021 Screw Jordana 3 Serr olivia 6.5mm 50mm Bone Polyaxial Nonsterile Spine - [id number] Start: 08-16-2021 FDA Start: 07-19-2019 FDA Start: 07-19-2019 FDA Start: 07-19-2019 FDA Start: 07-19-2019 Graft Bone Sub 5 cc Dbm Inert Reverse Phase Carrier Gel Synthetic Osteosparx - [id number] Start: 12-31-2021 Graft Infuse 14m m Small Bovine Collagen Rhbmp-2 23mm Bone Absorbable Sponge - [id number] Start: 12-31-2021 Substitute Mastergraft Bone Graft Matrix Block Extension Void Filler 5ml - [id number] Start: 12-31-2021 Vargas Polyaxia l Screw 55mm X 8.5mm [id number] Start: 12-31-2021 Vargas Polyaxia l Screw 100mm X 8.5mm [id number] Start: 12-31-2021 Screw Jordana 3 Titanium Set Cornell Spine - [id number] Start: 12-31-2021 Lamonte Jordana 3 6mm Titanium 100mm Spinal - [id number] Start: 12-31-2021 Lamonte Jordana 3 6mm Titanium 80mm Spinal Radiolucent - [id number] Start: 12-31-2021 Screw 9.5mm 50mm Bone Revision Polyaxial Iliosacral - [id number] Start: 12-31-2021 KNEE WOUND I & D STATUS POST TOTAL KNEE Rafael Zheng DO 07/19/19 Unknown Knee R FDA Start: 07-19-2019 KNEE WOUND I & D STATUS POST TOTAL KNEE Rafael Zheng DO 07/19/19 Unknown Knee R FDA Start: 07-19-2019 KNEE WOUND I & D STATUS POST TOTAL KNEE Rafael Zheng DO 07/19/19 Unknown Knee R FDA Start: 07-19-2019 KNEE WOUND I & D STATUS POST TOTAL KNEE Rafael Zheng DO 07/19/19 Unknown Knee R FDA Start: 07-19-2019 KNEE WOUND I & D STATUS POST TOTAL KNEE Rafael Zheng DO 07/19/19 Unknown Knee R FDA Start: 07-19-2019 Pen Shellman 31G X 5 MM Start: 08-06-2022 KNEE WOUND I & D STATUS POST TOTAL KNEE Rafael Zheng DO A 07/19/19 Unknown Knee R FDA Start: 07-19-2019 KNEE WOUND I & D STATUS POST TOTAL KNEE Rafael Zehng DO 07/19/19 Unknown Knee R FDA Start: 07-19-2019 KNEE WOUND I & D STATUS POST TOTAL KNEE Rafael Zheng DO 07/19/19 Unknown Knee R FDA Start: 07-19-2019 KNEE WOUND I & D STATUS POST TOTAL KNEE Rafael Zheng DO 07/19/19 Unknown Knee R FDA Start: 07-19-2019 Goals Date Patient Goal Desired Activity /State Functional Status Date Assessment Result Facility 05-06-2022 Functional status Patient at [facility] Work Phone: 01-06-2022 Are you deaf, or do you have serious difficulty hearing No 01/06/2022 6:27 PM Radha Aguilar RN No [facility] 01-06-2022 Are you blind, or do you have serious difficulty seeing, even when wearing glasses No 01/06/2022 6:27 PM Radha Aguilar RN No [facility] 01-06-2022 Do you have serious difficulty walking or climbing stairs No 01/06/2022 6:27 PM Radha Aguilra RN No [facility] 01-06-2022 Do you have difficul ty dressing or bathing No 01/06/2022 6:27 PM Radha Aguilar RN No [facility] 01-06-2022 Because of a physica l, mental, or emotional condition, do you have difficulty doing errands alone such as visiting a physician's office or shopping No 01/06/2022 6:27 PM EDT Radha Escamilla RN No [facility] Mental Status Date Assessment Result Facility 05-06-2022 Cognitive function Cognitive Sta tus Patient at [facility] Work Phone: 01-06-2022 Because of a physica l, mental, or emotional condition, do you have serious difficulty concentrating, remembering, or making decisions No 01/06/2022 6:27 PM EDT Radha Escamilla RN No [facility] Clinical Notes 07-17-2020 to 02-23-2025 Telephone Encounter - Yolanda Conde - 02/23/2025 9:30 AM EDTTelephone Encounter - Yolanda Conde - 02/23/2025 9:30 AM EDTTelephone Encounter - Yolanda Conde - 02/20/2025 10:01 AM EDT Note Date & Type Note Facility 02-23-2025 Telephone encounter Note Form atting of this note might be different from the original. Pt phoned to follow up with surgery scheduling. Pt unaware of appt 03/08, have relayed this to Pt. Pt asking if needs to bring anything to appt. Please advise Pt phone #[phone] [facility] 02-23-2025 Miscellaneous Notes Formattin g of this note might be different from the original. Pt phoned to follow up with surgery scheduling. Pt unaware of appt 03/08, have relayed this to Pt. Pt asking if needs to bring anything to appt. Please advise Pt phone #[phone] documented in this encounter [facility] 02-20-2025 Telephone encounter Note Form atting of this note might be different from the original. Pt phoned to follow up w results of recent test. Please call and advise Pt phone #[phone] [facility] 02-20-2025 Miscellaneous Notes Formattin g of this note might be different from the original. Pt phoned to follow up w results of recent test. Please call and advise Pt phone #[phone] documented in this encounter [facility] 02-09-2025 Telephone encounter Note Form atting of this note might be different from the original. Pt called - wondering if Dr. Steele will prescribe another steroid pack for his back - said his back is in terrible pain - #[phone] [facility] 02-09-2025 Miscellaneous Notes Formattin g of this note might be different from the original. Pt called - wondering if Dr. Steele will prescribe another steroid pack for his back - said his back is in terrible pain - #[phone] documented in this encounter [facility] 02-02-2025 Procedure note [facility] 01-26-2025 History of Present illness Narrative Chief Complaint Patient presents with Follow-up 8 month essential hypertension Subjective Mary Jimenez is a 64 y.o. male HPI Patient here for follow-up continue management for history of suspected angina, hypertension, obesity and hyperlipidemia. He was placed on medical therapy with improvement of his anginal symptomatology however he recently had been having more frequent episode of exertional angina. It occurs with minimal activity and improves with rest. He denies lightheadedness, dizziness or syncope. He report compliance with his medication. Has not had any recent lab work ASSESSMENT: 1. Increased frequency of anginal symptoms and patient with high risk profile for ischemic heart disease symptoms occurring at low exercise level with clearly a change in his anginal pattern 2. Hypertension, well controlled. On telmisartan and metoprolol 3. Obesity with mild no significant weight changes BMI at 40 4. Previous history of stroke with expressive aphasia has improved. 5. Hyperlipidemia no recent labs 6. Chronic back pain with multiple back surgeries RECOMMENDATIONS : 1. I discussed with patient treatment option. Considering the change in his anginal pattern and the fact he is having symptoms at low exercise level I suggested proceeding with cardiac catheterization. Risk, benefit alternative reviewed with patient at length he understood and agreed 2. The patient was counseled regarding losing weight, exercise, and risk factor adjustment. 3. We will see him back in after testing is done 4. Continue aggressive approach risk factor modification Review of Systems All other systems reviewed and are negative. Vitals: 01/26/25 1603 BP: 138/68 BP Location: Left arm Patient Position: Sitting Pulse: 88 Weight: 124 kg (274 lb) Height: 1.753 m (5' 9 ) Objective Physical Exam Constitutional: Appearance: Normal [...] Penicillins and Latex Current Medications Current Outpatient Medications Medication Instructions albuterol (Ventolin HFA) 90 mcg/actuation inhaler Use as directed atorvastatin (LIPITOR) 80 mg, oral, Nightly b complex 0.4 mg tablet 1 tablet, Daily cholecalciferol, vitamin D3, (D3-50 CHOLECALCIFEROL ORAL) 1 tablet, Daily clopidogrel (PLAVIX) 75 mg, Daily dicyclomine (BENTYL) 20 mg, 4 times daily PRN doxazosin (CARDURA) 4 mg, Daily doxepin (SINEQUAN) 10 mg, Nightly DULoxetine (CYMBALTA) 60 mg, 2 times daily ferrous sulfate 325 mg, Daily finasteride (PROSCAR) 5 mg, Daily fluticasone (Flonase) 50 mcg/actuation nasal spray 2 sprays, Daily fremanezumab (AJOVY) 225 mg, Every 28 days furosemide (LASIX) 40 mg, Daily HYDROcodone-acetaminophen ([place]) 7.5-325 mg tablet 1 tablet, 3 times daily isosorbide mononitrate ER (IMDUR) 30 mg, oral, Daily magnesium oxide (MAG-OX) 400 mg, Daily JOHANNE BIOTIN ORAL 10,000 mcg, Daily methocarbamol (ROBAXIN) 1,000 mg, 3 times daily metoprolol succinate XL (TOPROL-XL) 50 mg, Daily multivitamin capsule 1 capsule, Daily nitroglycerin (NITROSTAT) 0.4 mg, sublingual, Every 5 min PRN, Take as directed nortriptyline (PAMELOR) 50 mg, Daily omega-3 fatty acids (FISH OIL CONCENTRATE ORAL) 1 tablet, Daily omeprazole (PRILOSEC) 40 mg, Daily onabotulinumtoxinA (BOTOX INJ) Every 90 days pancrelipase, Rfc-Sepl-Enxb, (Creon) 36,000-114,000- 180,000 unit capsule,delayed release(DR/EC) capsule 1 capsule, Daily potassium chloride CR 20 mEq ER tablet 20 mEq, Daily pregabalin (LYRICA) 200 mg, 3 times daily rizatriptan (MAXALT) 10 mg, Once rOPINIRole (REQUIP) 0.5 mg, Daily Saccharomyces boulardii 250 mg, Daily semaglutide 2 mg, Once Weekly sildenafil (VIAGRA) 50 mg, As needed telmisartan (MICARDIS) 80 mg, Daily testosterone cypionate (Depo-Testosterone) 200 mg/mL injection 1.5 mL, Every 14 days valACYclovir (VALTREX) 500 mg, As needed Assessment/Plan 1. Angina pectoris Follow Up In Cardiology Cardiac Catheterization - Onbase Scan 2. Essential hypertension Follow Up In Cardiology 3. Shortness of breath on exertion Cardiac Catheterization - Onbase Scan 4. Mixed hyperlipidemia 5. Morbid obesity (Multi) 6. BMI 39.0-39.9,adult 7. Cerebrovascular accident (CVA), unspecified mechanism (Multi) 8. Never smoked any substance Scribe Attestation By signing my name below, Mary Alvarado LPN. , Jessicaibe attest that this documentation has been prepared [...] and plan. documented in this encounter [facility] Work Phone: 01-26-2025 Instructions David Hernández MA - 01/26/2025 3:50 PM EDT Please bring all medicines, vitamins, and herbal supplements with you when you come to the office. Prescriptions will not be filled unless you are compliant with your follow up appointments or have a follow up appointment scheduled as per instruction of your physician. Refills should be requested at the time of your visit. Fall Prevention Education Given documented in this encounter [facility] Work Phone: 01-13-2025 Telephone encounter Note Will address in MyChart encounter. [facility] 01-13-2025 Miscellaneous Notes Will address in MyChart encounter. Pt called - said when he met with Dr. Steele, he promised that he would give him a call today after consulting with another surgeon and he hasn't heard anything so he decided to call us - would like a call back #[phone] documented in this encounter [facility] 01-09-2025 Telephone encounter Note Pt called - said when he met with Dr. Steele, he promised that he would give him a call today after consulting with another surgeon and he hasn't heard anything so he decided to call us - would like a call back #[phone] [facility] 01-04-2025 Note HNO ID: [id number] Author: LOYDA STEELE MD Service: ? Author Type: Physician Type: Progress Notes Filed: 01/04/2025 13:14 Note Text: SPINE SURGERY ESTABLISHED PATIENT PCP: Jose Valdovinos DO REFERRING PROVIDER: Loyda Steele [id number] [facility] [id number] Assessment/Plan (S32.009K) Lumbar pseudoarthrosis (primary encounter diagnosis) 1. Lumbar pseudoarthrosis (S32.009K) - Persistent severe back pain, exacerbated by standing and walking, with difficulty sleeping due to discomfort. No leg symptoms reported. - Imaging reveals partial fusion with some areas appearing loose, including the S1 region and certain screws. - Discussed surgical intervention involving anterior approach to place a larger spacer and posterior approach to upsize screws for increased stability. - Explained potential risks of anterior approach due to previous surgery and possible scarring, but noted favorable anatomy for the procedure. - Will consult with a colleague who performs exposures to ensure feasibility and safety of the anterior approach. - Patient agrees with the proposed surgical plan. - Will send an email to the colleague to review images and confirm the plan; anticipate scheduling the procedure once confirmation is received. - Follow-up communication expected by Thursday. Subjective Chief Complaint: History of Present Illness: Alfredo Jimenez is a 64-year-old male presenting for follow-up [...] has not undergone any other abdominal surgeries. Musculoskeletal: (+) back pain, (-) leg pain Psychiatric: (+) sleep disturbance Major Risk Factors Notable surgical risk factors: Smoking status: Never BMI:40.17 kg/m2. Patient's BMI would meet criteria for obesity given BMI >= 30 Obesity High Risk BMI: 40.17 kg/m2 High: BMI > 40 Moderate: BMI 30-40 Normal: BMI < 30 Diabetes normal Last HbA1C: 6.3 - 12/08/2014 High: A1C > 8 Moderate: A1C 7-8 Normal: A1C < 7 Hx of DVT / PE normal High: dx of DVT / PE Normal: no dx of DVT / PE Smoking normal Last Status: Never High: Current smoker Normal: Non smoker Narcotics Use High Risk High:NarxCare >=300 Moderate: 100-299 Normal: 0-99 Depression Moderate Risk High: PHQ-9 >14 Moderate: PHQ-9 5-14 Normal: PHQ-9 < 5 Data from [facility] Epic on prior therapies: Last PT session: No date on file in last 365 days Last Epidural Steroid Injection: Date - 09/15/2024 with Guillaume Bhandari Last Spine Surgery: Date - 12/31/2021 with Loyda Steele. Procedure: Posterior revision L4 - pelvis instrumented fusion - ARTHRODESIS COMBINED TQ 1NTRSPC LUMBAR, ARTHRODESIS POSTERIOR INTERBODY 1 NTRSPC EA ADDL, POSTERIOR SEGMENTAL INSTRUMENTATION 3-6 VRT SEG, INSJ BIOMCHN DEV INTERVERTEBRAL DSC SPC W/ARTHRD Objective PHYSICAL EXAM BP 134/81 (BP Site: Left Arm, BP Cuff Size: Large Adult) Pulse 64 Ht 176.5 cm (5' 9.5 ) Wt 125.2 kg (276 lb) SpO2 100% BMI 40.17 kg/m? General: Well-appearing, obese. Back: Surgical scars present. Results: Imaging: - Lumbar spine imaging: Partial fusion observed with some evidence of hardware loosening at S1. [facility] 01-04-2025 History of Present illness Narrative Images from the original note were not included. SPINE SURGERY ESTABLISHED PATIENT PCP: Jose Valdovinos DO REFERRING PROVIDER: Loyda Steele [id number] [facility] [id number] Assessment/Plan (S32.009K) Lumbar pseudoarthrosis (primary encounter diagnosis) 1. Lumbar pseudoarthrosis (S32.009K) - Persistent severe back pain, exacerbated by standing and walking, with difficulty sleeping due to discomfort. No leg symptoms reported. - Imaging reveals partial fusion with some areas appearing loose, including the S1 region and certain screws. - Discussed surgical intervention involving anterior approach to place a larger spacer and posterior approach to upsize screws for increased stability. - Explained potential risks of anterior approach due to previous surgery and possible scarring, but noted favorable anatomy for the procedure. - Will consult with a colleague who performs exposures to ensure feasibility and safety of the anterior approach. - Patient agrees with the proposed surgical plan. - Will send an email to the colleague to review images and confirm the plan; anticipate scheduling the procedure once confirmation is received. - Follow-up communication expected by Thursday. Subjective Chief Complaint: History of Present Illness: Alfredo Jimenez is a 64-year-old male presenting for follow-up [...] has not undergone any other abdominal surgeries. Musculoskeletal: (+) back pain, (-) leg pain Psychiatric: (+) sleep disturbance Major Risk Factors Notable surgical risk factors: Smoking status: Never BMI:40.17 kg/m2. Patient's BMI would meet criteria for obesity given BMI >= 30 Obesity High Risk BMI: 40.17 kg/m2 High: BMI > 40 Moderate: BMI 30-40 Normal: BMI < 30 Diabetes normal Last HbA1C: 6.3 - 12/08/2014 High: A1C > 8 Moderate: A1C 7-8 Normal: A1C < 7 Hx of DVT / PE normal High: dx of DVT / PE Normal: no dx of DVT / PE Smoking normal Last Status: Never High: Current smoker Normal: Non smoker Narcotics Use High Risk High:NarxCare >=300 Moderate: 100-299 Normal: 0-99 Depression Moderate Risk High: PHQ-9 >14 Moderate: PHQ-9 5-14 Normal: PHQ-9 < 5 Data from [facility] Epic on prior therapies: Last PT session: No date on file in last 365 days Last Epidural Steroid Injection: Date - 09/15/2024 with Guillaume Bhandari Last Spine Surgery: Date - 12/31/2021 with Loyda Steele. Procedure: Posterior revision L4 - pelvis instrumented fusion - ARTHRODESIS COMBINED TQ 1NTRSPC LUMBAR, ARTHRODESIS POSTERIOR INTERBODY 1 NTRSPC EA ADDL, POSTERIOR SEGMENTAL INSTRUMENTATION 3-6 VRT SEG, INSJ BIOMCHN DEV INTERVERTEBRAL DSC SPC W/ARTHRD Objective PHYSICAL EXAM BP 134/81 (BP Site: Left Arm, BP Cuff Size: Large Adult) Pulse 64 Ht 176.5 cm (5' 9.5 ) Wt 125.2 kg (276 lb) SpO2 100% BMI 40.17 kg/m General: Well-appearing, obese. Back: Surgical scars present. Results: Imaging: - Lumbar spine imaging: Partial fusion observed with some evidence of hardware loosening at S1. documented in this encounter [facility] 12-19-2024 Evaluation note Authored December 19, 2024 10:35am Highest weight: 311.0 lbs. H e is [...] understands the importance of working with our first helper. 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 He had a negative recent colonoscopy. He should continue to take time to meal prep. He is still doing very good with regular exercise 1 hour a day at [employer] doing both strength and cardio. He should continue to treat with long-term lifestyle changes of improved nutrition, increased exercise and activity, stress reduction, adequate sleep and behavioral modification versus short-term dieting. We cannot consider phentermine with his history of possible CAD. He has considered the bariatric surgery program at the [facility]. 3. Prediabetes he had an A1c up to 6.2 but recent A1c better now normal at 5.4/he has had multiple blood sugars that have been in the diabetic range but may not been fasting. He notes at the [facility] he told he was diabetic. Continue treatment [...] healthy exercise is now working out at [employer] every other day and weight loss. He [...] his PCP Dr. Valdovinos, cardiology and GI. [facility] Work Phone: [phone]) 430-874706-11-2025 NoteHNO ID: [id number] Author: AISLINN NICKERSON MD Service: ? Author Type: Physician Type: Progress Notes Filed: 12/07/2024 18:25 Note Text: UNIVERSAL PROTOCOL / SAFETY CHECKLIST Procedure to be Performed: EMG Sign In: A Moment of CARE was completed. Personnel directly involved with the procedure wore the appropriate PPE (Personal Protective Equipment). Patient/Surrogate Stated/Verified: Patient name, Date of , Relevant allergies, and The intended procedure Time Out Communication: Intended patient and procedure match the source documents. Correct side/site marked and visible. Sign Out: SIGN OUT (optional for EMERGENT procedures): Post-procedure follow-up management communicated and Plan of Care Visit completed when applicable. MERON Contreras. Aislinn Nickerson, [facility]06-11-2025 History of Present illness Narrative* Aislinn Nickerson MD - 12/07/2024 1:41 PM EDT UNIVERSAL PROTOCOL / SAFETY CHECKLIST Procedure to be Performed: EMG Sign In: A Moment of CARE was completed. Personnel directly involved with the procedure wore the appropriate PPE (Personal Protective Equipment). Patient/Surrogate Stated/Verified: Patient name, Date of , Relevant allergies, and The intended procedure Time Out Communication: Intended patient and procedure match the source documents. Correct side/site marked and visible. Sign Out: SIGN OUT (optional for EMERGENT procedures): Post-procedure follow-up management communicated and Plan of Care Visit completed when applicable. MERON Contreras. Aislinn Nickerson MD [facility] Telephone encounter Note * Telephone Encounter - Becca Herbert LPN - 12/05/2024 1:11 PM EDT YES A NEW RX NEEDS TO BE SENT TO [facility]. [id number] Miscellaneous Notes* Telephone Encounter - Becca Herbert LPN - 12/05/2024 1:11 PM EDT YES A NEW RX NEEDS TO BE SENT TO [facility]. THANKS * Telephone Encounter - Becca Herbert LPN - 12/05/2024 10:26 AM EDT THE PT'S NOTE STATED HE WAS TAKING 300MG AND THEN IT WENT TO 400MG SO IM NOT SURE IF THAT WAS JUST A MISTAKE. HE WILL NEED A NEW RX SENT WITH THE CORRECT INSTRUCTIONS AND DAY SUPPLY. THANKS * Telephone Encounter - Mickey Avilez - 12/01/2024 11:14 AM EDT [facility] only release 2 vials says there's something in the script stopping from releasing more. Please give them a call to see what they need in order to release more. [id number] Hospital Discharge instructions Patient Education 12/05/2024 09:41:51 Testicular Self-Exam, [id number] Testicular Self-Exam A testicular self-exam means looking at and feeling your testicles for unusual lumps or swelling. Swelling, lumps, or pain can be caused by: Injuries. Irritation and swelling (inflammation). Infection. Extra fluids around the testicle (hydrocele). Twisted testicles (testicular torsion). Cancer of the testicle (testicular cancer). You may be at risk for this if you have: ?A testicle that has not descended. ?Previously had cancer of the testicle. ?A family history of cancer of the testicle. General tips It is easiest to do a self-exam during or after a warm bath or shower. Testicles are harder to examine when you are cold. A normal testicle is egg-shaped and feels firm. It is smooth, and it is not tender. It is normal to feel a firm cord that feels like spaghetti at the back of your testicles. This is called the spermatic cord. Do a self-exam once a month. How to do a self-exam of testicles 1.Stand and hold your penis away from your body. 2.Look at each testicle to check for changes in how it looks. Look for swelling or changes in size or shape. 3.Roll each testicle between your thumb and finger. Feel the whole testicle. Feel for: Lumps. Swelling. Discomfort. 4.Check for swelling or tender bumps in the groin area. Your groin is where your lower belly (abdomen) meets your upper thighs. Contact a doctor if: You find a bump or lump. This may be a small, hard bump that is the size of a pea. You have swelling, pain, or soreness in your testicle area. You see or feel any other changes in your testicles. This information is not intended to replace advice given to you by your health care provider. Make sure you discuss any questions you have with your health care provider. Document Revised: 03/30/2023 Document Reviewed: 03/30/2023 [employer] Patient Education 2023 [employer] Follow Up Care 11/30/2024 08:39:05 With:RODRICK MACIAS, Gilmar Nunez, URL Address: When: only if needed [facility] 06-09-2025 Telephone encounter Note* Telephone Encounter - Becca Herbert LPN - 12/05/2024 10:26 AM EDT THE PT'S NOTE STATED HE WAS TAKING 300MG AND THEN IT WENT TO 400MG SO IM NOT SURE IF THAT WAS JUST A MISTAKE. HE WILL NEED A NEW RX SENT WITH THE CORRECT INSTRUCTIONS AND DAY SUPPLY. THANKS [id number] NoteUrology Office/Clinic Note Chief Complaint New Pt. Referral HPI Staff New Pt. Referral per Jose Valdovinos DO due to abnormal US-11/23/24 [facility] IPSS 4 Denies any urinary symptoms History of Present Illness I have reviewed the previous health record information and history for this patient from Dr. Valdovinos. Pt is not having any bothersome urinary symptoms. IPSS 4 Review of Systems PHQ Score Initial Depression Screen Score: 0 SCORE Physical Exam Vitals & Measurements T: 36 ???C(Temporal Artery) HR: 90(Peripheral) RR: 18 BP: 150/78 HT: 176 cm HT: 69 in WT: 12.7 kg WT: 27.999 lb BMI: 4.1 General Appearance: alert, no distress, well nourished, well developed male. Genitourinary: normal scrotum, normal testes, normal urethra, normal epididymis, Rt Cyst-5mm; Lt Cyst-4mm vas deferens/spermatic cord. Flank Pain: none. Bladder: nonpalpable. Penis: normal shaft, normal glans. Skin: warm, dry, no bruising. Psychiatric: cooperative, affect appropriate for age, normal judgement, euthymic mood. Assessment/Plan Return to office on PRN basis 1. Scrotal mass (N50.89: Other specified disorders of the male genital organs) Pt states that he has had Scrotal Lump for 6 months. Scrotal US showed Hypoechoic are within subcutaneous fat at posterior scrotum to right of midline. Measures-[id number]. Not able to palpate on exam 2. BPH (benign prostatic hyperplasia) (N40.0: Benign prostatic hyperplasia without lower urinary tract symptoms) Pt is currently on Finasteride 5mg qd, PCP IPSS 4 3. Epididymal cyst (N50.3: Cyst of epididymis) Scrotal US shows Lt Cyst-4mm; Rt Cyst-5mm Overall the patient is referred for evaluation of a midline scrotal lesion which was actually seen on the ultrasound as an 8 mm hypoechoic area. Presumably this was a scrotal abscess. The patient actually had drainage from it and it was pruritic. I detect nothing on physical examination. Ultrasound demonstrated bilateral epididymal cysts which are inconsequential. He does have his PSA followed by his PCP. At this point he can see me on a as needed basis. I, Carmen Castillo, personally scribed for Dr. Eduardo on 12/05/2024 09:42:06. . Documentation recorded by the scribe, Carmen Castillo, accurately reflects the services(s) I performedand decisions made by me. Authenticated by Dr. Eduardo on 12/05/2024 09:43:37. Follow-up With When Contact Information RODRICK MACIAS, Gilmar Nunez, URL Only if needed Additional Instructions: Patient Education Testicular Self-Exam, [id number] Problem List/Past Medical History Ongoing Arthritis ASCVD (arteriosclerotic cardiovascular disease) Chronic back pain Chronic obstructive pulmonary disease Epididymal cyst Fusion of lumbar spine Heart disease History of CVA in adulthood Hypercholesteremia Hypertension Hypotestosteronism Seasonal allergies Wound dehiscence, surgical Historical Septic joint of right knee joint Procedure/Surgical History Carpal tunnel release (05/18/2020), Incision AND drainage (07/19/2019), Total knee arthroplasty (06/06/2019), Rotator cuff repair (01/04/2018), Total shoulder replacement (08/24/2017), Left total knee arthroplasty compounded by obesity (06/11/2016), Arthroscopy of shoulder (02/14/2016), ankle left,Arthroscopy of knee, Back, Foot, History of operative procedure on lumbar spinal structure, insertion of bone stimulator, Laminectomy, rt little finger closed reduction. Medications Ajovy Autoinjector, SubCutaneous, qMonth Ajovy Autoinjector 225 mg/1.5 mL subcutaneous solution, 225 mg, SubCutaneous, qMonth Ambien 5 mg Tab, 5 mg= 1 tab(s), Oral, Once a day (at bedtime), PRN atorvastatin, 80 mg, Oral, Once a day (at bedtime) baclofen 20 mg Tab, 20 mg= 1 tab(s), Oral, BID Biofreeze 4% topical gel, 1 beau, Topical, q6hr, PRN bisacodyl 5 mg Oral EC Tab, 10 mg= 2 tab(s), Oral, Daily, PRN calcium-vitamin D 600 mg-400 intl units oral tablet, 1 tab(s), Oral, Daily cholecalciferol 5000 intl units oral capsule, 125 mcg= 1 cap(s), Oral, Daily Creon, Oral, TID diclofenac, Oral dicyclomine 20 mg Tab, 20 mg= 1 tab(s), Oral, QID, PRN Diphenhist 25 mg oral capsule, 25 mg= 1 cap(s), Oral, q6hr, PRN doxazosin 4 mg Tab duloxetine 30 mg Cap-DR, 90 mg, Oral, Daily finasteride 5 mg Tab, 5 mg= 1 tab(s), Oral, Bedtime Fish Oil 1200 mg oral capsule, 1200 mg= 1 cap(s), Oral, Daily fluticasone Nasal 0.05 mg/inh [place], 2 spray(s), Nasal, BID Green Tea Capsule, 315 mg, Oral, Daily isosorbide mononitrate 30 mg ER Tab Klor-Con M20, 20 mEq, Oral, Daily Lasix, 40 mg, Oral, Daily Lasix 40 mg Tab, Oral, Daily Lyrica 200 mg Cap, 200 mg= 1 cap(s), Oral, BID magnesium oxide 400 mg Tab, 400 mg= 1 tab(s), Oral, Daily methylPREDNISolone 4 mg tab dosepak, 1 packet(s), Oral, Once metoprolol 50 mg ER Tab, 50 mg= 1 tab(s), Oral, Daily Micardis 80 mg oral tablet, 80 mg= 1 tab(s), Oral, Bedtime Milk Thistle oral capsu (more content not included)...[facility] HospitalComment on above:Result Comment: Electronically Signed By: Gilmar EDUARDO MD\.br\Date and Time Signed: 12/05/24 09:46 EDT\.br\Electronically Co- Signed By: Carmen Castillo.br\Date and Time Co-Signed: 12/05/24 09:42 EDT 12-05-2024 NotePatient Education Urology Testicular Self-Exam A testicular self-exam means looking at and feeling your testicles for unusual lumps or swelling. Swelling, lumps, or pain can be caused by: ??? Injuries. ??? Irritation and swelling (inflammation). ??? Infection. ??? Extra fluids around the testicle (hydrocele). ??? Twisted testicles (testicular torsion). ??? Cancer of the testicle (testicular cancer). You may be at risk for this if you have: ? A testicle that has not descended. ? Previously had cancer of the testicle. ? A family history of cancer of the testicle. General tips ??? It is easiest to do a self-exam during or after a warm bath or shower. Testicles are harder to examine when you are cold. ??? A normal testicle is egg-shaped and feels firm. It is smooth, and it is not tender. ??? It is normal to feel a firm cord that feels like spaghetti at the back of your testicles. This is called the spermatic cord. ??? Do a self-exam once a month. How to do a self-exam of testicles 1. Stand and hold your penis away from your body. 2. Look at each testicle to check for changes in how it looks. Look for swelling or changes in sizeor shape. 3. Roll each testicle between your thumb and finger. Feel the whole testicle. Feel for: ??? Lumps. ??? Swelling. ??? Discomfort. 4. Check for swelling or tender bumps in the groin area. Your groin is where your lower belly (abdomen) meets your upper thighs. Contact a doctor if: ??? You find a bump or lump. This may be a small, hard bump that is the size of a pea. ??? You have swelling, pain, or soreness in your testicle area. ??? You see or feel any other changes in your testicles. This information is not intended to replace advice given to you by your health care provider. Make sure you discuss any questions you have with your health care provider. Document Revised: 03/30/2023 Document Reviewed: 03/30/2023 Elsevier Patient Education ? 2023 [employer].[facility] 12-01-2024 Telephone encounter Note* Telephone Encounter - Mickey Avilez - 12/01/2024 11:14 AM EDT [facility]ials says there's something in the script stopping from releasing more. Please give them a call to see what they need in order to release more. [facility] [id number] NoteHNO ID: [id number] Author: LOYDA STEELE MD Service: ? Author Type: Physician Type: Progress Notes Filed: 11/30/2024 18:32 Note Text: SPINE SURGERY ESTABLISHED PATIENT PCP: Jose Valdovinos DO REFERRING PROVIDER: Loyda Steele [address] [facility] [address] Assessment/Plan (M54.16) Lumbar radiculopathy (primary encounter diagnosis) 1. Lumbar radiculopathy (M54.16) - Persistent bilateral lower back pain, predominantly on the left side, with a history of incomplete bone healing at L5-S1 as per July CT scan. - Ordered lumbar epidural steroid injection to be performed by Dr. Alba at [place]. - Prescribed a course of oral steroids (steroid pack) to address inflammation. - Discussed potential surgical intervention if conservative measures fail, including upsizing screws and adding additional screws to enhance stability and promote bone fusion. - Educated patient on the risks of long-term steroid use, including adrenal suppression, muscle atrophy, and osteoporosis. - Follow-up appointment to be conducted virtually to assess response to treatment and discuss further management options. Subjective Chief Complaint: History of Present Illness: Alfredo is a 64-year-old male presenting for evaluation of persistent numbness in the arms and lower back pain. Alfredo reports persistent numbness in both arms, extending from the elbows to the hands. He notes that the numbness is triggered by resting his hands and is accompanied by frequent dropping of objects. He describes the numbness as affecting the entire hand rather than a specific area. He does not endorse pain in the neck. He also reports ongoing lower back pain, which has worsened since a recent fall. The pain is now present on both sides of the lower back, whereas it was previously localized to the left side. He recalls receiving a back injection several years ago but does not remember the exact date. He notes that oral steroids have provided significant relief in the past, more so than injections. Alfredo mentions that he uses a cane for mobility and expresses a preference for receiving future injections at a location closer to his home in [place]. Neck: (-) neck pain Musculoskeletal: (+) low back pain Neurological: (+) upper extremity numbness, (+) hand weakness Major Risk Factors Notable surgical risk factors: Smoking status: Never BMI:40.3 kg/m2. Patient's BMI would meet criteria for obesity given BMI >= 30 Obesity High Risk BMI: 40.3 kg/m2 High: BMI > 40 Moderate: BMI 30-40 Normal: BMI < 30 Diabetes normal Last HbA1C: 6.3 - 12/08/2014 High: A1C > 8 Moderate: A1C 7-8 Normal: A1C < 7 Hx of DVT / PE normal High: dx of DVT / PE Normal: no dx of DVT / PE Smoking normal Last Status: Never High: Current smoker Normal: Non smoker Narcotics Use High Risk High:NarxCare >=300 Moderate: 100-299 Normal: 0-99 Depression Moderate Risk High: PHQ-9 >14 Moderate: PHQ-9 5-14 Normal: PHQ-9 < 5 Data from [facility] Epic on prior therapies: Last PT session: No date on file in last 365 days Last Epidural Steroid Injection: Date - 09/15/2024 with Guillaume Bhandari Last Spine Surgery: Date - 12/31/2021 with Loyda Steele. Procedure: Posterior revision L4 - pelvis instrumented fusion - ARTHRODESIS COMBINED TQ 1NTRSPC LUMBAR, ARTHRODESIS POSTERIOR INTERBODY 1 NTRSPC EA ADDL, POSTERIOR SEGMENTAL INSTRUMENTATION 3-6 VRT SEG, INSJ BIOMCHN DEV INTERVERTEBRAL DSC SPC W/ARTHRD Objective PHYSICAL EXAM BP 115/65 Pulse 96 Ht 176.5 cm (5' 9.5 ) Wt 125.6 kg (276 lb 14.4 oz) SpO2 96% BMI 40.30 kg/m? General: No acute distress. MSK/Ext: Tinel's sign over ulnar nerve negative. Results: Labs: Tests: Imaging: - (July) CT Lumbar Spine: - Approximately 90% bone healing observed - Possible minimal hardware loosening around some screws - Evidence of partial scar formation at L5-[facility]xx[facility] [id number] History of Present illness Narrative* Loyda Steele MD - 11/30/2024 6:30 PM EDT Images from the original note were not included. SPINE SURGERY ESTABLISHED PATIENT PCP: Jose Valdovinos DO REFERRING PROVIDER: Loyda Steele [address] [facility] [address] Assessment/Plan (M54.16) Lumbar radiculopathy (primary encounter diagnosis) 1. Lumbar radiculopathy (M54.16) - Persistent bilateral lower back pain, predominantly on the left side, with a history of incomplete bone healing at L5-S1 as per July CT scan. - Ordered lumbar epidural steroid injection to be performed by Dr. Alba at [place]. - Prescribed a course of oral steroids (steroid pack) to address inflammation. - Discussed potential surgical intervention if conservative measures fail, including upsizing screws and adding additional screws to enhance stability and promote bone fusion. - Educated patient on the risks of long-term steroid use, including adrenal suppression, muscle atrophy, and osteoporosis. - Follow-up appointment to be conducted virtually to assess response to treatment and discuss further management options. Subjective Chief Complaint: History of Present Illness: Alfredo is a 64-year-old male presenting for evaluation of persistent numbness in the arms and lower back pain. Alfredo reports persistent numbness in both arms, extending from the elbows to the hands. He notes that the numbness is triggered by resting his hands and is accompanied by frequent dropping ofobjects. He describes the numbness as affecting the entire hand rather than a specific area. He does not endorse pain in the neck. He also reports ongoing lower back pain, which has worsened since a recent fall. The pain is now present on both sides of the lower back, whereas it was previously localized to the left side. He recalls receiving a back injection several years ago but does not remember the exact date. He notes thatoral steroids have provided significant relief in the past, more so than injections. Alfredo mentions that he uses a cane for mobility and expresses a preference for receiving future injections at a location closer to his home in [place]. Neck: (-) neck pain Musculoskeletal: (+) low back pain Neurological: (+) upper extremity numbness, (+) hand weakness Major Risk Factors Notable surgical risk factors: Smoking status: Never BMI:40.3 kg/m2. Patient's BMI would meet criteria for obesity given BMI >= 30 Obesity High Risk BMI: 40.3 kg/m2 High: BMI > 40 Moderate: BMI 30-40 Normal: BMI < 30 Diabetes normal Last HbA1C: 6.3 - 12/08/2014 High: A1C > 8 Moderate: A1C 7-8 Normal: A1C < 7 Hx of DVT / PE normal High: dx of DVT / PE Normal: no dx of DVT / PE Smoking normal Last Status: Never High: Current smoker Normal: Non smoker Narcotics Use High Risk High:NarxCare >=300 Moderate: 100-299 Normal: 0-99 Depression Moderate Risk High: PHQ-9 >14 Moderate: PHQ-9 5-14 Normal: PHQ-9 < 5 Data from [facility] Epic on prior therapies: Last PT session: No date on file in last 365 days Last Epidural Steroid Injection: Date - 09/15/2024 with Guillaume Bhandari Last Spine Surgery: Date - 12/31/2021 with Loyda Steele. Procedure: Posterior revision L4 - pelvis instrumented fusion - ARTHRODESIS COMBINED TQ 1NTRSPC LUMBAR, ARTHRODESIS POSTERIOR INTERBODY 1 NTRSPC EA ADDL, POSTERIOR SEGMENTAL INSTRUMENTATION 3-6 VRT SEG, INSJ BIOMCHN DEV INTERVERTEBRAL DSC SPC W/ARTHRD Objective PHYSICAL EXAM BP 115/65 Pulse 96 Ht 176.5 cm (5' 9.5 ) Wt 125.6 kg (276 lb 14.4 oz) SpO2 96% BMI 40.30 kg/m General: No acute distress. MSK/Ext: Tinel's sign over ulnar nerve negative. Results: Labs: Tests: Imaging: - (July) CT Lumbar Spine: - Approximately 90% bone healing observed - Possible minimal hardware loosening around some screws - Evidence of partial scar formation at L5-S1 [facility] [place] [address] [place] [id number] Ultrasound Report Signed Patient: Mary Jimenez MR#: [id number] : 1960 Acct:[id number] Age/Sex: 64 / M ADM Date: 5 Loc: Room: Type: [facility] Attending Dr: Jose Valdovinos DO Ordering Provider: Jose Valdovinos DO Date of Service: 11/23/24 US/US scrotum: N50.89 - Other specified disorders of the male genital or... Copies to: Jose Valdovinos DO~ SCROTAL ULTRASOUND DUPLEX IMAGING CLINICAL DATA: Scrotal lump for the past few months. COMPARISON: None The right testis measures 2.6 x 1.2 x 2.3 cm . Left testis measures 2.6 x 1.2 x 2.3 cm. There is normal testicular echogenicity. No intratesticular masses are identified. There is documentation of bilateral duplex and color Doppler testicular blood flow. The epididymal heads are similar in size. There is a small right epididymal cyst measuring 5 mm in size. There is also a septated cystic structure at the epididymal head on the left which measures 4 mm. At thesite of the palpable lump at the posterior right scrotum toward the midline, there is a hypoechoic area within the subcutaneous fat measuring 8 x 2 x 5 mm insize. This is nonspecific and the etiology and significance is uncertain. US/US scrotum IMPRESSION: NO INTRATESTICULAR MASS OR TORSION. SMALL EPIDIDYMAL CYSTS. NONSPECIFIC HYPOECHOIC AREA WITHIN THE SUBCUTANEOUS FAT AT THE POSTERIOR SCROTUMTO THE RIGHT OF MIDLINE. Impression dictated by: Vivian Chambers M.D. 11/23/2024 12:18 PM Dictation Location: [place] [address] Tech: Amarilis Geo Transcribed By: ISIDRO 11/23/24 1218 Dictated By: Vivian Chambers MD 11/23/24 121 Signed By: 11/23/24 121 [facility] Work Phone: 1(394) 621-542305-01-2025 History of Present illness Narrative* RAIMUNDO Garcia - 10/27/2024 10:20 AM EDTAssociated Order(s): Trigger Point Injection: right cervical paraspinals, left cervical paraspinals Post-Procedure Diagnose(s): Myalgia; Neck pain Images from the original note were not included. Patient ID: Alfredo Jimenez is a 64 y.o. male. Trigger Point Injection: right cervical paraspinals, left cervical paraspinals on 10/27/2024 10:20 AM Indications: pain, muscle spasm and myalgia Details: 25 G needle Medications: 6 mL bupivacaine 0.25 % Outcome: tolerated well, no immediate complications Procedure, treatment alternatives, risks and benefits explained, specific risks discussed. Consent was given by the patient. BP 142/92BP. 142/92. Data is abnormal. Taken on 10/27/24 10:15 AM Heart Rate 87 Weight 275 lb Height 5' 9.5 Resp 16 SpO2 96 % Patient here today for trigger injection. He has had injections in the past and has had benefit. Most pain is located on left side of neck. Pain today 10 During consent for the procedure, the patient denies cow milk allergy. The anesthetic used during the trigger injection was surface anesthesia. During the trigger point injection the patient was placed in a sitting position. Patient has consented after being explained the risks, complications, and benefits; including pneumothorax for the trigger point in the upper quarters and in the interscapular region. This was done using sterile technique and surface anesthetic. The patient tolerated the procedure well. Ewa Rodriguez PA-C documented in this encounterGeneral [facility] [id number] Telephone encounter Note* Telephone Encounter - Christine Gutierrez PA-C - 10/06/2024 12:51 PM EDT I called return phone number on 10/06/2024 at 12:51 PM. Underwent Revision L4-pelvis instrumented fusion on 12/31/[address] Steele. They are interested in injection history. Requested operative report from C7-T1 interlaminar injection with Dr. Bhandari be faxed to them. [phone] Note faxed. [facility]04[facility] Miscellaneous Notes* Telephone Encounter - Christine Gutierrez PA-C - 10/06/2024 12:51 PM EDT I called return phone number on 10/06/2024 at 12:51 PM. Underwent Revision L4-pelvis instrumented fusion on 12/31/[address] Steele. They are interested in injection history. Requested operative report from C7-T1 interlaminar injection with Dr. Bhandari be faxed to them. [phone] Note faxed. * Telephone Encounter - Sidra Duval - 10/06/2024 8:46 AM EDT Mary from [facility] calling regarding pt injections - needs to speak with someone regarding what procedures pt has had done - would like to speak with someone to confirm - #[phone] documented in this encounterTrumbull [facility]04-10-2025 Telephone encounter Note * Telephone Encounter - Sidra Duval - 10/06/2024 8:46 AM EDT Mary from [facility] calling regarding pt injections - needs to speak with someone regarding what procedures pt has had done - would like to speak with someone to confirm - #[phone] [facility]04-02-[facility] Evaluation note* Author Rafael Holbrook [facility] Authored September 28, 2024 3:21 pm Highest weight: 311.0 lbs. H e is down 32.8 lbs. today. Start weight: 304.1 lbs. He is down 25.9 lbs. today with a weight of 278.2 lbs. He is up 7.2lbs since last visit on 07/28/2024. Starting Date: 07-18-2022. 1. Abnormal weight gain-significantly improved. 2. Morbid obesity-significant improvement of greater than a 7.5% weight loss with taking Ozempic 2 mg through patient assistance without side effects, but he has gotten significant weight regain of about 16.7 pounds from his lowest weight. He is not very active because of his back but is considering slowly starting water therapy. He has gotten recent weight regain with not getting in this 45 minutes of bike daily with some low back pain. His back specialist would like to get his weight down to 200 pounds for his back. He should consider bariatric surgery. Risk and benefits have been discussed. He is considering. 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 He had a negative recent colonoscopy. He should continue to take time to meal prep. He is still doing very good with regular exercise 1 hour a day at [employer] doing both strength and cardio. He should continue to treat with long- term lifestyle changes of improved nutrition, increased exercise and activity, stress reduction, adequate sleep and behavioral modification versus short-term dieting. We cannot consider phentermine with his history of possible CAD. He has considered the bariatric surgery program at the [facility]. 3. Prediabetes he had an A1c up to 6.2 but recent A1c better now normal at 5.4/he has had multiple blood sugars that have been in the diabetic range but may not been fasting. He notes at the [facility] he told he was diabetic. Continue treatment [...] healthy exercise is now working out at [employer] every other day and weight loss. He [...] work with his PCP Dr. Valdovinos, cardiology or GI. Author Rafael Holbrook [facility] Authored July 28, 2024 2 :54pm Highest weight: 311.0 lbs. H e is down 40.0lbs. today. Start weight: 304.1 lbs. He is down 33.1 lbs. today with a weight of 271.0 lbs. He is up 8.3 lbs since last visit on 05/18/2024.. Starting Date: 07-18-2022. 1. Abnormal weight gain-significantly improved. 2. Morbid obesity-significant improvement of greater than a 10% weight loss with taking Ozempic 2 mg through patient assistance without side effects. He is gotten some recent weight regain with not getting in this 45 minutes of bike daily with some low back pain. His back specialist would [...] still has significant fatty liver by FibroScan S3/F0- F1. 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 He had a negative recent colonoscopy. He should continue to take time to meal prep. He is still doing very good with regular exercise 1 hour a day at [employer] doing both strength and cardio. He should continue to treat with long-term lifestyle changes of improved nutrition, increased exercise and activity, stress reduction, adequate sleep and behavioral modification versus short-term dieting. We cannot consider phentermine with his history of possible CAD. He has considered the bariatric surgery program at the [facility]. 3. Prediabetes he had an A1c up to 6.2 but recent A1c better now normal at 5.4/he has had multiple blood sugars that have been in the diabetic range but may not been fasting. He notes at the [facility] he told he was diabetic. Continue treatment with long-term healthy lifestyle change, decreased simple sweets and refined starches, increased exercise and activity and long-term weight loss. He needs close long-term follow-up for this condition to prevent diabetes. 4. Hypertension-well controlled. He will continue to treat with a low-salt diet, decreased processed and restaurant foods, healthy lifestyle changes and achieve long-term weight loss. Monitor outside the office for confirmation of good control. 5. Obstructive sleep apnea-severe requiring CPAP. Should be improving with good sleep hygiene and weight loss. 6. OA knees-treat with healthy exercise is now working out at [employer] every other day and weight loss. He [...] weight loss. Follow up with me in 6-8 weeks. New labs needed: Up-to-date. He will continue regular blood work with his PCP Dr. Valdovinos, cardiology or GI. [facility] Work Phone: 1(880) 656-975004-02-2025 Evaluation note* Author Rafael Holbrook [facility] Authored September 28, 2024 3:21 pm Highest weight: 311.0 lbs. H e is down 32.8 lbs. today. Start weight: 304.1 lbs. He is down 25.9 lbs. today with a weight of 278.2 lbs. He is up 7.2lbs since last visit on 07/28/2024. Starting Date: 07-18-2022. 1. Abnormal weight gain-significantly improved. 2. Morbid obesity-significant improvement of greater than a 7.5% weight loss with taking Ozempic 2 mg through patient assistance without side effects, but he has gotten significant weight regain of about 16.7 pounds from his lowest weight. He is not very active because of his back but is considering slowly starting water therapy. He has gotten recent weight regain with not getting in this 45 minutes of bike daily with some low back pain. His back specialist would like to get his weight down to 200 pounds for his back. He should consider bariatric surgery. Risk and benefits have been discussed. He is considering. 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 He had a negative recent colonoscopy. He should continue to take time to meal prep. He is still doing very good with regular exercise 1 hour a day at [employer] doing both strength and cardio. He should continue to treat with long- term lifestyle changes of improved nutrition, increased exercise and activity, stress reduction, adequate sleep and behavioral modification versus short-term dieting. We cannot consider phentermine with his history of possible CAD. He has considered the bariatric surgery program at the [facility]. 3. Prediabetes he had an A1c up to 6.2 but recent A1c better now normal at 5.4/he has had multiple blood sugars that have been in the diabetic range but may not been fasting. He notes at the [facility] he told he was diabetic. Continue treatment [...] healthy exercise is now working out at [employer] every other day and weight loss. He [...] work with his PCP Dr. Valdovinos, cardiology or GI. [facility] Work Phone: 1(366) 305-476603-26-2025 Telephone encounter Note* Telephone Encounter - Anni Douglas RN - 09/21/2024 2:56 PM EDT Left message on voicemail for patient to call office back regarding Post injection call. Injection was done on 09/15. Mychart message was already sent on 09/17 [facility]03-26-2025 Miscellaneous Notes* Telephone Encounter - Anni Douglas RN - 09/21/2024 2:56 PM EDT Left message on voicemail for patient to call office back regarding Post injection call. Injection was done on 09/15. Mychart message was already sent on 09/17 * Telephone Encounter - Li Rosenbaum LPN - 09/17/2024 9:46 AM EDT Post Spine Injection phone call: 09/17/24 Called patient to review post procedure questions, but patient unavailable. Left vm for patient to give office a call back to go through questions. Mychart message also sent to patient and informed he can respond through message as well. documented in this encounterTr[facility] Telephone encounter Note * Telephone Encounter - Li Rosenbaum LPN - 09/17/2024 9:46 AM EDT Post Spine Injection phone call: 09/17/24 Called patient to review post procedure questions, but patient unavailable. Left vm for patient to give office a call back to go through questions. [facility] message also sent to patient and informed he can respond through message as well. [facility]03-20-2025 Telephone encounter Note* Telephone Encounter - Kristi Rehman - 09/15/2024 1:13 PM EDT Recvd: Med hold clearance DOS 09/12/24 [facility]03-20-2025 Miscellaneous Notes* Telephone Encounter - Kristi Rehman - 09/15/2024 1:13 PM EDT Recvd: Med hold clearance DOS 09/12/24 documented in this encounterTr[facility]ull [facility]03[facility]25 Telephone encounter Note * Telephone Encounter - Li Rosenbaum LPN - 09/07/2024 2:40 PM EDT No response from patient. Closing Encounter. [facility]03-12-2025 Miscellaneous Notes* Telephone Encounter - Li Rosenbaum LPN - 09/07/2024 2:40 PM EDT No response from patient. Closing Encounter. * Telephone Encounter - Li Rosenbaum LPN - 09/07/2024 10:17 AM EDT 4th Attempt to call patient. LVM for patient to give office a call back to review instructions and to discuss Plavix. * Telephone Encounter - Li Rosenbaum LPN - 09/06/2024 1:14 PM EDT 3rd attempt to contact patient regarding his procedure 09/15/24 and to discuss medication. Patient not available. LVM to give office a call back. Also called [facility] in his chart and LVM for them to have him give our office a call. * Telephone Encounter - Li Rosenbaum LPN - 09/05/2024 10:16 AM EDT 2nd attempt to call patient. LVM for patient to give office a call back regarding His spine procedure on 09/15/24. * Telephone Encounter - Li Rosenbaum LPN - 09/05/2024 9:[address] Bhandari: If he holds the Plavix for 7 days I will do the injection. * Telephone Encounter - Li Rosenbaum LPN - 09/03/2024 10:51 AM EST Called and left patient a message for patient to give office a call back regarding his spine procedure on 09/15/24. Patient med list states he is taking Plavix need patient to give office a call back to inform he needs to stop 7 days before procedure documented in this encounterTr[facility]03-[facility] Telephone encounter Note * Telephone Encounter - Li Rosenbaum LPN - 09/07/2024 10:17 AM EDT 4th Attempt to call patient. LVM for patient to give office a call back to review instructions and to discuss Plavix. [facility]03-11-2025 Telephone encounter Note* Telephone Encounter - Li Rosenbaum LPN - 09/06/2024 1:14 PM EDT 3rd attempt to contact patient regarding his procedure 09/15/24 and to discuss medication. Patient not available. LVM to give office a call back. Also called Alternate Contact in his chart and LVM for them to have him give our office a call. [facility]03-10-2025 Telephone encounter Note* Telephone Encounter - Li Rosenbaum LPN - 09/05/2024 10:16 AM EDT 2nd attempt to call patient. LVM for patient to give office a call back regarding His spine procedure on 09/15/24. [facility]03-10-2025 Telephone encounter Note* Telephone Encounter - Li Rosenbaum LPN - 09/05/2024 9:[address] Bhandari: If he holds the Plavix for 7 days I will do the injection. [facility]03-08-2025 Telephone encounter Note* Telephone Encounter - Li Rosenbaum LPN - 09/03/2024 10:51 AM EST Called and left patient a message for patient to give office a call back regarding his spine procedure on 09/15/24. Patient med list states he is taking Plavix need patient to give office a call back to inform he needs to stop 7 days before procedure [facility]03-07-2025 Telephone encounter Note* Telephone Encounter - Li Rosenbaum LPN - 09/02/2024 2:12 PM EST [facility] message sent to patient with Procedure Instructions [facility]03-07-2025 Miscellaneous Notes* Telephone Encounter - Li Rosenbaum LPN - 09/02/2024 2:12 PM EST [facility] message sent to patient with Procedure Instructions documented in this encounterTrumbull [facility]02-[facility]-2025 Telephone encounter Note * Telephone Encounter - Lela Torres - 08/25/2024 11:40 AM EST Pt called; says his ride cancelled on him this morning; he cannot come for the injection procedure today. Pt wants to reschedule his injection for carmen. Transferred patient to [facility] scheduling team at ph: [phone] [facility]02-27-2025 Miscellaneous Notes* Telephone Encounter - Lela Torres - 08/25/2024 11:40 AM EST Pt called; says his ride cancelled on him this morning; he cannot come for the injection procedure today. Pt wants to reschedule his injection for carmen. Transferred patient to [facility] scheduling team at ph: [phone] documented in this encounterTrumbull [facility]02-18-2025 Telephone encounter Note * Telephone Encounter - Li Rosenbaum LPN - 08/16/2024 9:[address] Rodriges's office at [phone]. Delinquent Notice Machine Operator stated the patient see's Dr. Alli toribio doesn't normally clear patient's to be off of medications before procedure's he leaves that up to provider performing procedure and patient. Will inform Dewayne Hutton [facility]02-18-2025 Miscellaneous Notes* Telephone Encounter - Li Rosenbaum LPN - 08/16/2024 9:[address] Rodriges's office at [phone]. Delinquent Notice Machine Operator stated the patient see's Dr. Alli toribio doesn't normally clear patient's to be off of medications before procedure's he leaves that up to provider performing procedure and patient. Will inform Dewayne Hutton * Telephone Encounter - Li Rosenbaum LPN - 08/15/2024 4:45 PM EST Will call Dr. Rodriges at [facility] to get a fax number to send a clearance letter. * Telephone Encounter - Li Rosenbaum LPN - 08/15/2024 4:34 PM EST Phoned patient and spoke with patient to confirm appointment for Mary Jimenez for spine procedure on 08/25/24. Patient notified that [facility] will call patient the night before with the time to arrive for injection. Patient verbalized understanding of the following: -Provided education on spine procedure and answered questions related to spine injection procedure. -City Assessor is needed to drive patient home: Yes, patient stated his insurance will have a ride for him. Informed they will need to provide a ride back home. Patient verbalized understanding. -NPO 6 hours prior to appointment, ok to take morning medications with sip of water. -Not to take any pain medications the day of injection to see how well injection works. -Do not take any NSAIDs/anti-inflammatories (mobic, ibuprofen, advil, aleve, etc) the day of procedure for all lumbar, hip, and sacroiliac joint procedures. Hold NSAIDs for 1 day prior to procedure for cervical cases. Allergies reviewed: Yes Allergy to IV contrast dye or steroids: No and not allergic to shellfish Taking any antiplatelet/anticoagulant (blood thinners): Yes, Plavix 75mg. Informed him he will needto be off of this 7 days before surgery. He stated Dr. Rodriges is the prescribing provider at [facility]: [phone]. Taking aspirin 81mg: No Any open wounds/sores?: No Taking Antibiotics?: No Patient given number [phone], spine injections schedulers, if there is any need to reschedule/change appointment during normal business hours. Active MyChart users were informed to read MyChartprocedure instructions prior to appointment. AMBULATORY PATIENT EDUCATION TOPIC: SPINE INJECTION PROCEDURE, PRE-INJECTION AND POST- INJECTION INSTRUCTIONS READINESS TO LEARN COGNITIVE ABILITY: ALERT AND ORIENTED MOTIVATION TO LEARN: Eager FAMILY SUPPORT: Unable to assess - Family not present INSTRUCTION PROVIDED TO: Patient PATIENT LEARNS BEST BY: INDIVIDUAL INSTRUCTION FACTORS AFFECTING LEARNING: None PHYSICAL LIMITATIONS AFFECTING LEARNING: None LEARNING RESPONSE METHOD OF INSTRUCTION: TEACH BACK AND INDIVIDUAL INSTRUCTION PATIENT / FAMILY RESPONSE: VERBALIZED UNDERSTANDING OF PRE AND POST INJECTION INSTRUCTIONS * Telephone Encounter - Macrina Grayson - 08/15/2024 4:26 PM EST Patient called; returning call from nurse; asked patient if he is still taking plavix and patient answered yes - states he usually stops this rx one week before; requesting call back; ph. [phone] * Telephone Encounter - Li Rosenbaum LPN - 08/15/2024 3:54 PM EST 3rd attempt to call patient to review procedure instructions and discuss his medications. LVM to give office a call back. * Telephone Encounter - Li Rosenbaum LPN - 08/12/2024 9:01 AM EST 2nd attempt to call patient. Lvm for patient to give office a call back regarding his spine procedure on 08/25/24 and discuss medication. * Telephone Encounter - Li Rosenbaum LPN - 08/10/2024 6:01 PM EST Called and left patient a message for patient to give office a call back regarding his spine procedure on 08/25/24 Patient med list shows patient is taking Plavix 75mg. Need to review with patient. documented in this encounterTr[facility]ull [facility]02-[facility]-2025 Telephone encounter Note * Telephone Encounter - Li Rosenbaum LPN - 08/15/2024 4:45 PM EST Will call Dr. Rodriges at [facility] to get a fax number to send a clearance letter. [facility]02-17-2025 Telephone encounter Note* Telephone Encounter - Li Rosenbaum LPN - 08/15/2024 4:34 PM EST Phoned patient and spoke with patient to confirm appointment for Mary Jimenez for spine procedure on 08/25/24. Patient notified that [facility] will call patient the night before with the time to arrive for injection. Patient verbalized understanding of the following: -Provided education on spine procedure and answered questions related to spine injection procedure. -City Assessor is needed to drive patient home: Yes, patient stated his insurance will have a ride for him. Informed they will need to provide a ride back home. Patient verbalized understanding. -NPO 6 hours prior to appointment, ok to take morning medications with sip of water. -Not to take any pain medications the day of injection to see how well injection works. -Do not take any NSAIDs/anti-inflammatories (mobic, ibuprofen, advil, aleve, etc) the day of procedure for all lumbar, hip, and sacroiliac joint procedures. Hold NSAIDs for 1 day prior to procedure for cervical cases. Allergies reviewed: Yes Allergy to IV contrast dye or steroids: No and not allergic to shellfish Taking any antiplatelet/anticoagulant (blood thinners): Yes, Plavix 75mg. Informed him he will needto be off of this 7 days before surgery. He stated Dr. Rodriges is the prescribing provider at [facility]: [phone]. Taking aspirin 81mg: No Any open wounds/sores?: No Taking Antibiotics?: No Patient given number [phone], spine injections schedulers, if there is any need to reschedule/change appointment during normal business hours. Active MyChart users were informed to read MyChartprocedure instructions prior to appointment. AMBULATORY PATIENT EDUCATION TOPIC: SPINE INJECTION PROCEDURE, PRE-INJECTION AND POST- INJECTION INSTRUCTIONS READINESS TO LEARN COGNITIVE ABILITY: ALERT AND ORIENTED MOTIVATION TO LEARN: Eager FAMILY SUPPORT: Unable to assess - Family not present INSTRUCTION PROVIDED TO: Patient PATIENT LEARNS BEST BY: INDIVIDUAL INSTRUCTION FACTORS AFFECTING LEARNING: None PHYSICAL LIMITATIONS AFFECTING LEARNING: None LEARNING RESPONSE METHOD OF INSTRUCTION: TEACH BACK AND INDIVIDUAL INSTRUCTION PATIENT / FAMILY RESPONSE: VERBALIZED UNDERSTANDING OF PRE AND POST INJECTION INSTRUCTIONS [facility]02-17-2025 Telephone encounter Note* Telephone Encounter - Macrina Grayson - 08/15/2024 4:26 PM EST Patient called; returning call from nurse; asked patient if he is still taking plavix and patient answered yes - states he usually stops this rx one week before; requesting call back; ph. [phone] [facility]02-17-2025 Telephone encounter Note* Telephone Encounter - Li Rosenbaum LPN - 08/15/2024 3:54 PM EST 3rd attempt to call patient to review procedure instructions and discuss his medications. LVM to give office a call back. [facility]02-14-2025 Telephone encounter Note* Telephone Encounter - Li Rosenbaum LPN - 08/12/2024 9:01 AM EST 2nd attempt to call patient. Lvm for patient to give office a call back regarding his spine procedure on 08/25/24 and discuss medication. [facility]02-12-2025 Telephone encounter Note* Telephone Encounter - Li Rosenbaum LPN - 08/10/2024 6:01 PM EST Called and left patient a message for patient to give office a call back regarding his spine procedure on 08/25/24 Patient med list shows patient is taking Plavix 75mg. Need to review with patient. [facility]02-11-2025 NoteHNO ID: [id number] Author: ROSY RIVAS RT(Megan) Service: ? Author Type: Technologist Type: Progress Notes Filed: 08/09/2024 11:53 Note Text: Radiology Service Progress Note PATIENT NAME: Mary Jimenez DATE OF SERVICE: August 09, 2024 TIME: 11:44 AM PATIENT IDENTITY VERIFICATION COMPLETED USING TWO (2) IDENTIFIERS: Name and Date of confirmed by patient verbally. FALL SCREENING: Has the patient had 2 falls in the last year or 1 fall with injury or currently using an Ambulatory Assistive Device (Walker, Cane, Wheelchair, Crutches, etc.)? No PATIENT GENDER DATA: Assigned male at PATIENT RELEVANT IMPLANT DATA REVIEWED: Not Applicable PATIENT PRESENTS WITH AN IMPLANTABLE OR ATTACHED BORING MILL OPERATOR FOR METAL: No RADIOLOGY DEPARTMENT: CT; Exam(s) Completed: Spine PERIPHERAL IV DATA: Not applicable SIGNED BY: RT Moon(R) August 09, 2024 11:44 [facility]02-11-2025 History of Present illness Narrative* Rosy Rivas RT(Megan) - 08/09/2024 11:44 AM EST Radiology Service Progress Note PATIENT NAME: Mary Jimenez DATE OF SERVICE: August 09, 2024 TIME: 11:44 AM PATIENT IDENTITY VERIFICATION COMPLETED USING TWO (2) IDENTIFIERS: Name and Date of confirmedby patient verbally. FALL SCREENING: Has the patient had 2 falls in the last year or 1 fall with injury or currently using an Ambulatory Assistive Device (Walker, Cane, Wheelchair, Crutches, etc.)? No PATIENT GENDER DATA: Assigned male at PATIENT RELEVANT IMPLANT DATA REVIEWED: Not Applicable PATIENT PRESENTS WITH AN IMPLANTABLE OR ATTACHED BORING MILL OPERATOR FOR METAL: No RADIOLOGY DEPARTMENT: CT; Exam(s) Completed: Spine PERIPHERAL IV DATA: Not applicable SIGNED BY: RT Moon(Megan) August 09, 2024 11:44 AM documented in this encounterTr[facility] History of Present illness Narrative* Mickey Sánchez MA - 08/03/2024 2:00 PM EST Images from the original note were not included. Procedure - Therapeutic injection, Botulinum Toxin, Chronic Migraine Indication Chronic Migraine Identification The patient was positively identified by name and date of . Consent The procedure with risks and benefits was explained to the patient. The risks included but were notlimited to bleeding/bruising, weakness, ptosis, dysphagia, infection, and . Informed consent for the procedure was obtained and witnessed. All further questions were answered during this visit. Site Prep The areas to be injected were sterilized with 70% isopropanol alcohol. Lot #: [id number] Exp: 08/2026 Dilution: 2:1 Procedure Procerus 5 units Billposting Supervisor, L 5 units Billposting Supervisor, R 5 units Frontalis, L 5+5 units Frontalis, R 5+5 units Temporalis, L 5+5+5+5 units Temporalis, R 5+5+5+5 units Occipitalis, L 5+5+5 units Occipitalis, R 5+5+5 units Paraspinalis cervicis, L 5+5 units Paraspinalis cervicis, R 5+5 units Trapezius, L 5+5+5 units Trapezius, L 5+5+5 units Other TOTAL UNITS INJECTED 155 WASTED 45 Disposition The patient tolerated the procedure well. Post-op care was discussed. The patient is aware that duration of action is ~ 90 days, and that delay in reinjection often results in recurrence of migraines Patient Instructions The patient was instructed to call or return for any excessive,weakness or any other unexpected symptoms. Assessment Chronic migraine without aura, intractable, without status migrainosus - G43.719 documented in this encounterGeneral Leonard Wood Army Community [id number] Evaluation note* Author Rafael Holbrook [facility] Authored July 28, 2024 2 :54pm Highest weight: 311.0 lbs. H e is down 40.0lbs. today. Start weight: 304.1 lbs. He is down 33.1 lbs. today with a weight of 271.0 lbs. He is up 8.3 lbs since last visit on 05/18/2024.. Starting Date: 07-18-2022. 1. Abnormal weight gain-significantly improved. 2. Morbid obesity-significant improvement of greater than a 10% weight loss with taking Ozempic 2 mg through patient assistance without side effects. He is gotten some recent weight regain with not getting in this 45 minutes of bike daily with some low back pain. His back specialist would [...] still has significant fatty liver by FibroScan S3/F0- F1. 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 He had a negative recent colonoscopy. He should continue to take time to meal prep. He is still doing very good with regular exercise 1 hour a day at [employer] doing both strength and cardio. He should continue to treat with long-term lifestyle changes of improved nutrition, increased exercise and activity, stress reduction, adequate sleep and behavioral modification versus short-term dieting. We cannot consider phentermine with his history of possible CAD. He has considered the bariatric surgery program at the [facility]. 3. Prediabetes he had an A1c up to 6.2 but recent A1c better now normal at 5.4/he has had multiple blood sugars that have been in the diabetic range but may not been fasting. He notes at the [facility] he told he was diabetic. Continue treatment with long-term healthy lifestyle change, decreased simple sweets and refined starches, increased exercise and activity and long-term weight loss. He needs close long-term follow-up for this condition to prevent diabetes. 4. Hypertension-well controlled. He will continue to treat with a low-salt diet, decreased processed and restaurant foods, healthy lifestyle changes and achieve long-term weight loss. Monitor outside the office for confirmation of good control. 5. Obstructive sleep apnea-severe requiring CPAP. Should be improving with good sleep hygiene and weight loss. 6. OA knees-treat with healthy exercise is now working out at [employer] every other day and weight loss. He [...] weight loss. Follow up with me in 6-8 weeks. New labs needed: Up-to-date. He will continue regular blood work with his PCP Dr. Valdovinos, cardiology or GI. [facility] Work Phone: 1(540) 989-907101-30-2025 Evaluation note* Author Rafael Holbrook [facility] Authored July 28, 2024 1 :54pm Highest weight: 311.0 lbs. H e is down 40.0lbs. today. Start weight: 304.1 lbs. He is down 33.1 lbs. today with a weight of 271.0 lbs. He is up 8.3 lbs since last visit on 05/18/2024.. Starting Date: 07-18-2022. 1. Abnormal weight gain-significantly improved. 2. Morbid obesity-significant improvement of greater than a 10% weight loss with taking Ozempic 2 mg through patient assistance without side effects. He is gotten some recent weight regain with not getting in this 45 minutes of bike daily with some low back pain. His back specialist would [...] still has significant fatty liver by FibroScan S3/F0- F1. 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 He had a negative recent colonoscopy. He should continue to take time to meal prep. He is still doing very good with regular exercise 1 hour a day at [employer] doing both strength and cardio. He should continue to treat with long-term lifestyle changes of improved nutrition, increased exercise and activity, stress reduction, adequate sleep and behavioral modification versus short-term dieting. We cannot consider phentermine with his history of possible CAD. He has considered the bariatric surgery program at the [facility]. 3. Prediabetes he had an A1c up to 6.2 but recent A1c better now normal at 5.4/he has had multiple blood sugars that have been in the diabetic range but may not been fasting. He notes at the [facility] he told he was diabetic. Continue treatment with long-term healthy lifestyle change, decreased simple sweets and refined starches, increased exercise and activity and long-term weight loss. He needs close long-term follow-up for this condition to prevent diabetes. 4. Hypertension-well controlled. He will continue to treat with a low-salt diet, decreased processed and restaurant foods, healthy lifestyle changes and achieve long-term weight loss. Monitor outside the office for confirmation of good control. 5. Obstructive sleep apnea-severe requiring CPAP. Should be improving with good sleep hygiene and weight loss. 6. OA knees-treat with healthy exercise is now working out at [employer] every other day and weight loss. He [...] weight loss. Follow up with me in 6-8 weeks. New labs needed: Up-to-date. He will continue regular blood work with his PCP Dr. Valdovinos, cardiology or GI. [facility] Work Phone: 1(403) 935-963401-30-2025 Evaluation note* Author Kayleigh Craigwilberto [facility] Authored September 28, 2024 3:03 pm Highest weight: 311.0 lbs. H e is down 32.8 lbs. today. Start weight: 304.1 lbs. He is down 25.9 lbs. today with a weight of 278.2 lbs. He is up 7.2lbs since last visit on 07/28/2024. Starting Date: 07-18-2022. 1. Abnormal weight gain-significantly improved. 2. Morbid obesity-significant improvement of greater than a 10% weight loss with taking Ozempic 2 mg through patient assistance without side effects. He is gotten some recent weight regain with not getting in this 45 minutes of bike daily with some low back pain. His back specialist would [...] still has significant fatty liver by FibroScan S3/F0- F1. 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 He had a negative recent colonoscopy. He should continue to take time to meal prep. He is still doing very good with regular exercise 1 hour a day at [employer] doing both strength and cardio. He should continue to treat with long-term lifestyle changes of improved nutrition, increased exercise and activity, stress reduction, adequate sleep and behavioral modification versus short-term dieting. We cannot consider phentermine with his history of possible CAD. He [facility] [facility] 3. Prediabetes he had an A1c up to 6.2 but recent A1c better now normal at 5.4/he has had multiple blood sugars that have been in the diabetic range but may not been fasting. He notes at the [facility] he told he was diabetic. Continue treatment with long-term healthy lifestyle change, decreased simple sweets and refined starches, increased exercise and activity and long-term weight loss. He needs close long-term follow-up for this condition to prevent diabetes. 4. Hypertension-well controlled. He will continue to treat with a low-salt diet, decreased processed and restaurant foods, healthy lifestyle changes and achieve long-term weight loss. Monitor outside the office for confirmation of good control. 5. Obstructive sleep apnea-severe requiring CPAP. Should be improving with good sleep hygiene and weight loss. 6. OA knees-treat with healthy exercise is now working out at [employer] every other day and weight loss. He [...] weight loss. Follow up with me in 6-8 weeks. New labs needed: Up-to-date. He will continue regular blood work with his PCP Dr. Valdovinos, cardiology or GI. Author Rafael Holbrook [facility] Authored July 28, 2024 2 :54pm Highest weight: 311.0 lbs. H e is down 40.0lbs. today. Start weight: 304.1 lbs. He is down 33.1 lbs. today with a weight of 271.0 lbs. He is up 8.3 lbs since last visit on 05/18/2024.. Starting Date: 07-18-2022. 1. Abnormal weight gain-significantly improved. 2. Morbid obesity-significant improvement of greater than a 10% weight loss with taking Ozempic 2 mg through patient assistance without side effects. He is gotten some recent weight regain with not getting in this 45 minutes of bike daily with some low back pain. His back specialist would [...] still has significant fatty liver by FibroScan S3/F0- F1. 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 He had a negative recent colonoscopy. He should continue to take time to meal prep. He is still doing very good with regular exercise 1 hour a day at [employer] doing both strength and cardio. He should continue to treat with long-term lifestyle changes of improved nutrition, increased exercise and activity, stress reduction, adequate sleep and behavioral modification versus short-term dieting. We cannot consider phentermine with his history of possible CAD. He has considered the bariatric surgery program at the [facility]. 3. Prediabetes he had an A1c up to 6.2 but recent A1c better now normal at 5.4/he has had multiple blood sugars that have been in the diabetic range but may not been fasting. He notes at the [facility] he told he was diabetic. Continue treatment with long-term healthy lifestyle change, decreased simple sweets and refined starches, increased exercise and activity and long-term weight loss. He needs close long-term follow-up for this condition to prevent diabetes. 4. Hypertension-well controlled. He will continue to treat with a low-salt diet, decreased processed and restaurant foods, healthy lifestyle changes and achieve long-term weight loss. Monitor outside the office for confirmation of good control. 5. Obstructive sleep apnea-severe requiring CPAP. Should be improving with good sleep hygiene and weight loss. 6. OA knees-treat with healthy exercise is now working out at [employer] every other day and weight loss. He [...] weight loss. Follow up with me in 6-8 weeks. New labs needed: Up-to-date. He will continue regular blood work with his PCP Dr. Valdovinos, cardiology or GI. [facility] Work Phone: [phone] 160-796001-29-2025 Telephone encounter Note* Telephone Encounter - Li Rosenbaum LPN - 07/27/2024 11:46 AM EST [facility] message sent to patient with procedure instructions. [facility]01-29-2025 Miscellaneous Notes* Telephone Encounter - Li Rosenbaum LPN - 07/27/2024 11:46 AM EST [facility] message sent to patient with procedure instructions. documented in [facility]Tr[facility] History of Present illness Narrative* Danisha Bran MD - 07/22/2024 10:00 AM EST Subjective Mary Jimenez is a 64 y.o. male Chief Complaint Follow-up HPI Patient is here for follow-up continue management for previous evaluation for shortness of breath and chest pain. It was suspected that he might have anginal symptomatology. He elected for medical therapy and responded well to medical therapy. He denies lightheadedness, dizziness or syncope. He describes intermittent episode of chest pain and shortness of breath unchanged from before. He reports stable cardiac status and symptoms. Laboratory data from September last year noted and reviewed with him ASSESSMENT: 1. Episode of chest pain suspicious of angina. Last stress test 2 years ago was negative. Patient had excellent response to low-dose beta-cornell and nitrate. Has not had any chest pain since he was placed on medical therapy. He does have moderate to high risk for ischemic heart disease. He reportssymptoms unchanged and not frequent 2. Hypertension, well controlled. 3. Obesity with mild gradual weight loss 4. Previous history of stroke with expressive aphasia has improved. 5. Hyperlipidemia controlled 6. Chronic back pain with multiple back surgeries RECOMMENDATIONS : 1. Discussed treatment option again today. The patient appears to be stable on current medical regimen. We discussed further work-up including invasive evaluation versus noninvasive and invasive assessment. We discussed cardiac catheterization. Following lengthy discussion the patient elected to continue with medical therapy 2. The patient was counseled regarding losing weight, exercise, and risk factor adjustment. 3. We will see him back in 8 months or earlier if the need arise. Patient was advised to notify me if he had any recurrence of his chest pain 5. I reviewed with patient his recent lab 4. Continue aggressive approach risk factor modification Review of Systems Constitutional: Positive for malaise/fatigue. Cardiovascular: Positive for chest pain. Neurological: Positive for light-headedness, loss of balance and weakness. All other systems reviewed and are negative. Vitals: 07/22/24 1008 BP: 132/82 BP Location: Right arm Patient Position: Sitting Pulse: 88 Weight: 122 kg (270 lb) Height: 1.765 m (5' 9.5 ) Objective [...] by mouth once daily at bedtime., Disp: 90 tablet, Rfl: 3 b complex 0.4 mg tablet, Take 1 tablet by mouth once daily., Disp: , Rfl: cholecalciferol, vitamin D3, (D3-50 CHOLECALCIFEROL ORAL), Take 1 tablet by mouth once daily., Disp: , Rfl: clopidogrel (Plavix) 75 mg tablet, Take 1 tablet (75 mg) by mouth once daily., Disp: , Rfl: dicyclomine (Bentyl) 20 mg tablet, Take 1 tablet (20 mg) by mouth 4 times a day as needed., Disp: ,Rfl: doxazosin (Cardura) 4 mg tablet, Take 1 tablet (4 mg) by mouth once daily., Disp: , Rfl: doxepin (SINEquan) 10 mg capsule, Take 1 capsule (10 mg) by mouth once daily at bedtime., Disp: , Rfl: DULoxetine (Cymbalta) [address] capsule, Take 2 capsules (60 mg) by mouth 2 times a day. Do not crush or chew., Disp: , Rfl: ferrous sulfate 325 (65 Fe) MG EC tablet, Take 1 tablet by mouth once daily. Do not crush, chew, orsplit., Disp: , Rfl: finasteride (Proscar) 5 mg tablet, Take 1 tablet (5 mg) by mouth once daily. Do not crush, chew, orsplit., Disp: , Rfl: fluticasone (Flonase) 50 mcg/actuation nasal spray, Administer 2 sprays into each nostril once [...] ER (Imdur) 30 mg 24 hr tablet, Take 1 tablet (30 mg) by mouth once daily., Disp: 90 tablet, Rfl: 3 magnesium oxide (Mag-Ox) 400 mg tablet, Take 1 tablet (400 mg) by mouth once daily., Disp: , Rfl: JOHANNE BIOTIN ORAL, Take 10,000 mcg by mouth once daily., Disp: , Rfl: methocarbamol (Robaxin) 500 mg tablet, Take 2 tablets (1,000 mg) by mouth 3 times a day., Disp: , Rfl: metoprolol succinate XL (Toprol-XL) 50 mg 24 hr tablet, Take 1 tablet (50 mg) by mouth once daily. Do not crush or chew., Disp: , Rfl: multivitamin capsule, Take 1 capsule by mouth once daily., Disp: , Rfl: nitroglycerin (Nitrostat) 0.4 mg SL tablet, Place 1 tablet (0.4 mg) under the tongue every 5 minutes if needed for chest pain. Take as directed, Disp: 25 tablet, Rfl: 1 nortriptyline (Pamelor) 50 mg capsule, Take 1 capsule (50 mg) by mouth once daily., Disp: , Rfl: omega-3 fatty acids (FISH OIL CONCENTRATE ORAL), Take 1 tablet by mouth once daily., Disp: , Rfl: omeprazole (PriLOSEC) [address] capsule, Take 1 capsule (40 mg) by mouth once daily. Do not crush orchew., Disp: , Rfl: onabotulinumtoxinA (BOTOX INJ), Every 90 days, Disp: , Rfl: pancrelipase, Vhl-Gepi-Xfmq, (Creon) 36,000-114,000- 180,000 unit capsule,delayed release(DR/EC) capsule, Take 1 capsule by mouth once daily., Disp: , Rfl: potassium chloride CR 20 mEq ER tablet, Take 1 tablet (20 mEq) by mouth once daily. Do not crush orchew., Disp: , Rfl: pregabalin (Lyrica) 200 mg capsule, Take 1 capsule (200 mg) by mouth 3 times a day., Disp: , Rfl: rizatriptan (Maxalt) 10 mg tablet, Take 1 tablet (10 mg) by mouth 1 time. At the onset of headache.May repeat ievery 2 hours as needed. Do not exceed 30 mg in 24 hours., Disp: , Rfl: rOPINIRole (Requip) 0.5 mg tablet, Take 1 tablet (0.5 mg) by mouth once daily., Disp: , Rfl: Saccharomyces boulardii 10 billion cell capsule, Take 250 mg by mouth once daily., Disp: , Rfl: sildenafil (Viagra) 50 mg tablet, Take 1 tablet (50 mg) by mouth if needed for erectile dysfunction. 1 hour before needed, Disp: , Rfl: telmisartan (MIcarDIS) 80 mg tablet, Take 1 tablet (80 mg) by mouth once daily., Disp: , Rfl: testosterone cypionate (Depo-Testosterone) 200 mg/mL injection, Inject 1.5 mL (300 mg) into the muscle every 14 (fourteen) days., Disp: , Rfl: valACYclovir (Valtrex) 500 mg tablet, Take 1 tablet (500 mg) by mouth if needed., Disp: , Rfl: HYDROcodone-acetaminophen ([place]) 7.5-325 mg tablet, Take 1 tablet by mouth 3 times a day., Disp: ,Rfl: semaglutide 2 mg/dose (8 mg/3 mL) pen injector, Inject 2 mg under the skin 1 (one) time per week., Disp: , Rfl: Assessment/Plan 1. Shortness of breath on exertion 2. Essential hypertension Follow Up In Cardiology Follow Up In Cardiology 3. Mixed hyperlipidemia 4. Morbid obesity (Multi) 5. Cerebrovascular accident (CVA), unspecified mechanism (Multi) 6. Angina pectoris 7. BMI 39.0-39.9,adult 8. Never smoked any substance Scribe Attestation By signing my name below, I, Hetal Villegas RN , Scribe attest that this documentation has been prepared under the direction and in the presence of MD Marty. Provider Attestation - Scribe documentation All medical record entries made by the Scribe were at my direction and personally dictated by me. Ihave reviewed the chart and agree that the record accurately reflects my personal performance of the history, physical exam, discussion and plan. documented in this encounterL[facility] Work Phone: [phone]) 361-793101-24-2025 Instructions* Patient Instructions* Hetal Young RN - 07/22/2024 10:00 AM EST Please bring all medicines, vitamins, and herbal supplements with you when you come to the office. Prescriptions will not be filled unless you are compliant with your follow up appointments or have a follow up appointment scheduled as per instruction of your physician. Refills should be requested at the time of your visit. BMI was above normal measurement. Current weight: 122 kg (270 lb) Weight change since last visit (-) denotes wt loss -9.6 lbs Weight loss needed to achieve BMI 25: 98.6 Lbs Weight loss needed to achieve BMI 30: 64.3 Lbs Provided instructions on dietary changes Provided instructions on exercise. documented in this encounterLake[facility] Work Phone: 1(820) 202-462901-22-2025 History of Present illness Narrative* Loyda Steele MD - 07/20/2024 1:00 PM EST SPINE SURGERY ESTABLISHED VISIT This is an in-person visit. DATE OF SERVICE: 07/20/2024 DATE OF LAST VISIT: 04/21/2022 SURGERY DATE: 12/31/21 Revision L4-pelvis instrumented fusion SUBJECTIVE: HPI:Mary Jimenez is a 64 year old male presenting with spouse. Today, the patient reports pain in his lower back, radiating down the back of his left leg and intohis foot, causing his foot to feel numb. He has also expressed minor pain in his neck, stating thathis left arm has frequently gone numb. He was previously doing physical therapy and going to the gym. Patient is still taking Lyrica as prescribed. Approximate date and time of pain or symptom onset: symptoms began around December 2023 MEDICATIONS: QUEtiapine (SEROQUEL) 25 mg tablet TAKE ONE TABLET BY MOUTH EVERY NIGHT AT BEDTIME clopidogrel (PLAVIX) 75 mg tablet Take 1 [...] Take 30 mg by mouth three times a day. Takes 30 mg three times daily per [...] 2 Sprays in each nostril twice daily. methylPREDNISolone (MEDROL DOSE-PACK) 4 mg Dose-Pack As Instructed per package Pregabalin (LYRICA) 200 mg capsule Take 1 capsule by mouth three times daily for 90 days. lactobacillus combination no.4 3 billion cell cap Take 1 capsule by mouth once daily. Pain Radiation: Low back down left leg and foot Aggravating Factors: Standing, Walking Alleviating Factors: Exercising/activity AMBULATORY STATUS: Impaired Community Distances ANTIPLATELET OR ANTICOAGULATION STATUS: Yes, Plavix 75mg PREVIOUS CONSERVATIVE TREATMENTS: Lyrica, Medrol, Cymbalta REVIEW OF SYSTEMS: GENERAL: No weight loss or malaise MUSCULOSKELETAL: SEE HPI NEURO: No history of syncope, paralysis, seizures or tremors Patient Entered Questionnaires 04/09/2022 04/20/2022 07/02/2022 Spine Questions Pain Location: Lower back Lower back Lower back Pain Duration: More than 5 years Pain over last 6 months: Every day or nearly every day in the past 6 months Symptoms from neck/cervical spine: No No No Employment Status: Disabled for reasons other than back pain Disabled for reasons other than back pain 10/02/2021 Neck Questionnaires Benzel Modified SCARLETT Score Incomplete PROMIS Score Percentiles 12/04/2021 01/14/2022 04/09/2022 Physical Health Physical Function Percentile 73 0 0 Sleep Percentile 50 2 0 Fatigue Percentile 98 79 0 Pain Interference Percentile 0 0 0 12/04/2021 01/14/2022 04/09/2022 PROMIS SOCIAL ROLE SCORE Social Role Satisfaction Percentile 1 1 2 02/25/2022 03/30/2022 07/02/2022 PROMIS Global Health Scale Physical Health Percentile 7 1 1 Mental Health Percentile 3 3 2 Percentiles provide an indication of how the patient's score ranks in relation to the general population. Higher percentile rankings indicate better function/quality of life. 50th percentile is the average of the general population and indicates half of respondents had a worse score. Depression Screenin02/07/2022 04/09/2022 07/02/2022 PHQ-9 Score 10 21 17 02/07/2022 04/09/2022 07/02/2022 PHQ-9 Self-harm Question Question 9 Not at all Not at all Not at all PHQ-9 Self-Harm (Item 9) response options: 0 Not at all 1 Several days 2 More than half the days 3 Nearly every day PHQ-9 Levels: 0-4 No to mild depression 5-9 Mild depression 10-14 Moderate depression 15-19 Moderately severe depression 20-27 Severe depression OBJECTIVE: PHYSICAL EXAM: GENERAL APPEARANCE: Well nourished, well developed, and [...] SIGN: Not tested. SPURLING'S TEST: Not tested. ASSESSMENT/PLAN (M54.16) Lumbar radiculopathy (primary encounter diagnosis) (M54.16) Radiculopathy of lumbar region (M50.10) Cervical disc disorder with radiculopathy Mary Jimenez has a condition that requires further workup. Imaging: Lumbar CT Without Contrast Symptoms of neuro deficit or red flag symptoms listed in HPI Medrol dose pack ordered Referral to Dr. Alba for C7/T1 interlaminar injection Follow up: Following above The documentation for this note was completed by Geoff La acting as scribe for Loyda Steele MD. July 20, 2024 1:04 PM. SIGNATURE: Loyda Steele MD PATIENT NAME: Mary Jimenez DATE: July 20, 2024 TIME: 1:04 PM PAGER: documented in this encounterTr[facility]-22-2025 NoteHNO ID: [id number] Author: LOYDA STEELE MD Service: ? Author Type: Physician Type: Progress Notes Filed: 07/20/2024 13:24 Note Text: SPINE SURGERY ESTABLISHED VISIT This is an in-person visit. DATE OF SERVICE: 07/20/2024 DATE OF LAST VISIT: 04/21/2022 SURGERY DATE: 12/31/21 Revision L4-pelvis instrumented fusion SUBJECTIVE: HPI:Mary Jimenez is a 64 year old male presenting with spouse. Today, the patient reports pain in his lower back, radiating down the back of his left leg and into his foot, causing his foot to feel numb. He has also expressed minor pain in his neck, stating that his left arm has frequently gone numb. He was previously doing physical therapy and going to the gym. Patient is still taking Lyrica as prescribed. Approximate date and time of pain or symptom onset: symptoms began around December 2023 MEDICATIONS: QUEtiapine (SEROQUEL) 25 mg tablet TAKE ONE TABLET BY MOUTH EVERY NIGHT AT BEDTIME clopidogrel (PLAVIX) 75 mg tablet Take 1 [...] Take 30 mg by mouth three times a day. Takes 30 mg three times daily per [...] 2 Sprays in each nostril twice daily. methylPREDNISolone (MEDROL DOSE-PACK) 4 mg Dose-Pack As Instructed per package Pregabalin (LYRICA) 200 mg capsule Take 1 capsule by mouth three times daily for 90 days. lactobacillus combination no.4 3 billion cell cap Take 1 capsule by mouth once daily. Pain Radiation: Low back down left leg and foot Aggravating Factors: Standing, Walking Alleviating Factors: Exercising/activity AMBULATORY STATUS: Impaired Community Distances ANTIPLATELET OR ANTICOAGULATION STATUS: Yes, Plavix 75mg PREVIOUS CONSERVATIVE TREATMENTS: Lyrica, Medrol, Cymbalta REVIEW OF SYSTEMS: GENERAL: No weight loss or malaise MUSCULOSKELETAL: SEE HPI NEURO: No history of syncope, paralysis, seizures or tremors Patient Entered Questionnaires 04/09/2022 04/20/2022 07/02/2022 Spine Questions Pain Location: Lower back Lower back Lower back Pain Duration: More than 5 years Pain over last 6 months: Every day or nearly every day in the past 6 months Symptoms from neck/cervical spine: No No No Employment Status: Disabled for reasons other than back pain Disabled for reasons other than back pain 10/02/2021 Neck Questionnaires Benzel Modified SCARLETT Score Incomplete PROMIS Score Percentiles 12/04/2021 01/14/2022 04/09/2022 Physical Health Physical Function Percentile 73 0 0 Sleep Percentile 50 2 0 Fatigue Percentile 98 79 0 Pain Interference Percentile 0 0 0 12/04/2021 01/14/2022 04/09/2022 PROMIS SOCIAL ROLE SCORE Social Role Satisfaction Percentile 1 1 2 02/25/2022 03/30/2022 07/02/2022 PROMIS Global Health Scale Physical Health Percentile 7 1 1 Mental Health Percentile 3 3 2 Percentiles provide an indication of how the patient's score ranks in relation to the general population. Higher percentile rankings indicate better function/quality of life. 50th percentile is the average of the general population and indicates half of respondents had a worse score. Depression Screenin02/07/2022 04/09/2022 07/02/2022 PHQ-9 Score 10 21 17 02/07/2022 04/09/2022 07/02/2022 PHQ-9 Self-harm Question Question 9 Not at all Not (more content not included)...[facility] 07-13-2024 History of Present illness Narrative* Kg Carson DO - 07/13/2024 10:00 AM EST Subjective Mary Jimenez is a 64 y.o. year old male Chief complaint: Migraine Past Medical History: Diagnosis Date Brachial neuritis or radiculitis 09/07/2014 Carpal tunnel syndrome 08/15/2014 Cervicalgia 01/20/2014 Chronic daily headache 05/19/2018 Chronic headache 02/10/2018 Chronic migraine without aura (CMS/HCC) 07/16/2018 Common migraine (CMS/HCC) 02/28/2014 Degenerative disc disease, cervical 04/21/2017 Depressed (CMS/HCC) 07/01/2017 Disturbance of skin sensation 10/25/2013 Dysuria Fibromyalgia 11/07/2014 Foraminal stenosis of cervical region 02/10/2018 Headache 09/06/2013 Headache, chronic migraine without aura, intractable (CMS/HCC) 10/15/2018 Headache, migraine (CMS/HCC) 07/16/2018 Hx of being [place] [facility] [place] Insomnia 04/21/2017 Insomnia, unspecified type 11/06/2014 Intractable migraine, unspecified migraine type (CMS/HCC) 07/16/2018 Low testosterone Migraine (CMS/HCC) 02/10/2018 Muscle spasm 11/07/2014 Myalgia 07/01/2017 Neck pain 04/21/2017 Obesity with body mass index (BMI) of 30.0 to 39.9 Obstructive sleep apnea 05/19/2018 Radiculopathy, lumbosacral region 10/25/2013 Secondary male hypogonadism Stroke (CMS/HCC) 05/19/2018 Sweating abnormality Syndrome affecting cervical region 02/28/2014 Tension headache 10/05/2014 Transient alteration of awareness 03/22/2015 Past Surgical History: Procedure Laterality Date ANKLE SURGERY Right BACK SURGERY x 3 IR CVC PICC 09/20/2021 IR CVC PICC KNEE SURGERY Right Arthroscopy x 2 SHOULDER SURGERY Right TOTAL KNEE ARTHROPLASTY Left Family History Problem Relation Name Age of Onset Hypertension Mother Hypertension Father Cancer Other Diabetes Other Seizures Other Stroke Other Hypertension Other Social History Tobacco Use Smoking status: Never Smokeless tobacco: Never Substance Use Topics Alcohol use: Yes HPI Patient presents today for a follow up for migraines. He is interested in started botox again but has not had this since 11/2022. Patient reports 20-25 migraines a month. These are located on the top of his head. These are lasting a minimum of 8 hours. He states he has tried about everything as far as medication and nothing is giving him relief. When patient was receiving botox he was experiencingless than 5 migraines a month. He stopped this because of cost but is in a place now where he wouldlike to start again. ROS Review of Systems Constitutional: Negative for activity change and appetite change. Respiratory: Negative. Cardiovascular: Negative. Gastrointestinal: Negative. Musculoskeletal: Positive for back pain, gait problem and neck pain. Neurological: Positive for numbness and headaches. Negative for weakness. Psychiatric/Behavioral: Positive for sleep disturbance. Objective Visit Vitals BP 148/84 Pulse 92 Wt 266 lb SpO2 95% BMI 39.28 kg/m Smoking Status Never BSA 2.43 m Neurological Exam Mental Status Awake, alert and oriented to person, place and time. Recent and remote memory are intact. Speech isnormal. Language is fluent with no aphasia. Attention and concentration are normal. Fund of knowledge is appropriate for level of education. Cranial Nerves CN II: Visual acuity is normal. Visual paez full to confrontation. CN III, IV, : Extraocular movements intact bilaterally. Normal lids and orbits bilaterally. Pupils equal round and reactive to light bilaterally. CN V: Facial sensation is normal. CN VII: Full and symmetric facial movement. CN VIII: Hearing is normal. CN XI: Shoulder shrug strength is normal. Motor Normal muscle bulk throughout. Normal muscle tone. No abnormal involuntary movements. Gait Casual gait is normal including stance, stride, and arm swing. Assessment and Plan Diagnoses and all orders for this visit: Chronic migraine without aura with status migrainosus, not intractable (CMS/HCC) He experiences headaches greater than 15 times a month including migraines lasting greater than 4 hours. He has failed: Elavil, Baclofen, Maxalt, Trileptal, metoprolol, Cambia, Lyrica, gabapentin, Trileptal, Cymbalta, nurtec, NSAIDs. Aimovig became ineffective. Ubrelvy was ineffective. Due to his history of stroke he should avoid triptans. Ajovy has been helpful. Headaches have been more frequentbut believes weather is the trigger. He has had an exceptional response to treatment with Botox. With Botox treatment the patient's migraines were reduced by greater than 50 percent in number of headache days per month and in severity. This resembled a greater than 200 hour per month reduction in mi graine. PLAN We will continue Botox for chronic migraine. We will inject via the PREEMPT protocol with 155 unitsinjected and 45 units of waist per injection session for a total of 200 units every 3 months. We will need approval for at least 1 year. We will inject 31 injection sites around the head in the neck via the protocol noted. The patient has undergone this before and has had substantial relief from this treatment. All questions answered. Patient understands and is agreeable to the plan. Discussion in layman's terms. Side effects of the Botox discussed in detail with the patient wishes to proceed. documented in this encounterGeneral Leonard Wood Army Community [id number] Telephone encounter Note* Telephone Encounter - Christine Gutierrez PA-C - 07/11/2024 9:58 AM EST Imaging viewable, should be okay for appointment. [facility]01-13-2025 Miscellaneous Notes* Telephone Encounter - Christine Gutierrez PA-C - 07/11/2024 9:58 AM EST Imaging viewable, should be okay for appointment. * Telephone Encounter - Naren Bear - 07/11/2024 9:36 AM EST Patient called, he wanted to make sure all his images were in the system, I was able to see MRI completed on 06/15/24. Report and images are in system. Patient just wanted to make sure he was good togo for his appointment. Patient # [id number] [facility] Telephone encounter Note * Telephone Encounter - Naren Bear - 07/11/2024 9:36 AM EST Patient called, he wanted to make sure all his images were in the system, I was able to see MRI completed on 06/15/24. Report and images are in system. Patient just wanted to make sure he was good togo for his appointment. Patient # [id number] [facility]12-30-2024 Telephone encounter Note* Telephone Encounter - Yolanda Conde - 06/27/2024 3:21 PM EST MRI report scanned to [facility]12-30-2024 Miscellaneous Notes* Telephone Encounter - Yolanda Conde - 06/27/2024 3:21 PM EST MRI report scanned to [facility] documented in [facility]Tr[facility] Telephone encounter Note * Telephone Encounter - KELVIN Amado 06/13/2024 11:59 AM EST Patient calls requesting refill of pregabalin 200mg sent to [facility] in [place] [facility] [id number] Miscellaneous Notes* Telephone Encounter - Bette Chung MA - 06/13/2024 11:59 AM EST Patient calls requesting refill of pregabalin 200mg sent to [facility] in [place] documented in this encounterGeneral Leonard Wood Army Community [id number] Telephone encounter Note* Telephone Encounter - Evelia Whiteside MA - 06/06/2024 12:34 PM EST Ilana Izaguirre [facility] [id number] Miscellaneous Notes* Telephone Encounter - Evelia Whiteside MA - 06/06/2024 12:34 PM EST Ilana Izaguirre * Telephone Encounter - RAIMUNDO Atkins - 06/06/2024 12:27 PM EST Where would he like this sent? I see a few local pharmacies listed, thanks! * Telephone Encounter - Shireen Ardon MA - 06/06/2024 11:16 AM EST Patient states that he has MRI scheduled for next week. Asking if we can send in a medication for him to take prior for claustrophobia. documented in this encounterGeneral Leonard Wood Army Community [id number] Telephone encounter Note* Telephone Encounter - RAIMUNDO Atkins - 06/06/2024 12:27 PM EST Where would he like this sent? I see a few local pharmacies listed, thanks! [facility] [id number] Telephone encounter Note* Telephone Encounter - Shireen Ardon MA - 06/06/2024 11:16 AM EST Patient states that he has MRI scheduled for next week. Asking if we can send in a medication for him to take prior for claustrophobia. [facility] [id number] History of Present illness Narrative* Se Rodriges MD - 05/19/2024 1:00 PM EST Subjective Mary Jimenez is a 63 y.o. year old male Chief Complaint Patient presents with Headache Restless Legs Past Medical History: Diagnosis Date Brachial neuritis or radiculitis 09/07/2014 Carpal tunnel syndrome 08/15/2014 Cervicalgia 01/20/2014 Chronic daily headache 05/19/2018 Chronic headache 02/10/2018 Chronic migraine without aura (CMS/HCC) 07/16/2018 Common migraine (CMS/HCC) 02/28/2014 Degenerative disc disease, cervical 04/21/2017 Depressed (CMS/HCC) 07/01/2017 Disturbance of skin sensation 10/25/2013 Fibromyalgia 11/07/2014 Foraminal stenosis of cervical region 02/10/2018 Headache 09/06/2013 Headache, chronic migraine without aura, intractable (CMS/HCC) 10/15/2018 Headache, migraine (CMS/HCC) 07/16/2018 Hx of being [place] [facility] [place] Insomnia 04/21/2017 Insomnia, unspecified type 11/06/2014 Intractable migraine, unspecified migraine type (CMS/HCC) 07/16/2018 Migraine (CMS/HCC) 02/10/2018 Muscle spasm 11/07/2014 Myalgia 07/01/2017 Neck pain 04/21/2017 Obstructive sleep apnea 05/19/2018 Radiculopathy, lumbosacral region 10/25/2013 Stroke (CMS/HCC) 05/19/2018 Syndrome affecting cervical region 02/28/2014 Tension headache 10/05/2014 Transient alteration of awareness 03/22/2015 Past Surgical History: Procedure Laterality Date ANKLE SURGERY Right BACK SURGERY x2 IR CVC PICC 09/20/2021 IR CVC PICC Family History Problem Relation Name Age of Onset Hypertension Mother Hypertension Father Cancer Other Diabetes Other Seizures Other Stroke Other Hypertension Other Social History Tobacco Use Smoking status: Never Smokeless tobacco: Never Substance Use Topics Alcohol use: Yes HPI HEADACHE -on Ajovy -not doing botox right now -headaches are every couple of days -lasting most of the day -located temporal -he does not sleep well -only getting a couple of hours the past 4 days . RLS -on requip and lyrica -states his left leg has been worse -numbness and tingling in right foot -denies any leg weakness -balance is improving -admits to a recent fall -will be seeing neurosurgeon soon for consult for bulging disc in lumbar spine NEW DX: hyper-reflexia -worsening balance -neck pain -paresthesia in the left hand -feels like he walks on a jelly pad ROS Review of Systems Constitutional: Negative for activity change and appetite change. Respiratory: Negative. Cardiovascular: Negative. Gastrointestinal: Negative. Musculoskeletal: Positive for back pain, gait problem and neck pain. Neurological: Positive for numbness and headaches. Negative for weakness. Psychiatric/Behavioral: Positive for sleep disturbance. Objective Visit Vitals BP 120/80 (BP Location: Left arm, Patient Position: Sitting) Ht 5' 9 Wt 261 lb BMI 38.54 kg/m Smoking Status Never BSA 2.4 m Neurological Exam Mental Status Awake, alert and oriented to person, place and time. Recent and remote memory are intact. Speech isnormal. Language is fluent with no aphasia. Attention and concentration are normal. Fund of knowledge is appropriate for level of education. Cranial Nerves CN II: Visual acuity is normal. Visual paez full to confrontation. CN III, IV, : Extraocular movements intact bilaterally. Normal lids and orbits bilaterally. Pupils equal round and reactive to light bilaterally. CN V: Facial sensation is normal. CN VII: Full and symmetric facial movement. CN VIII: Hearing is normal. CN XI: Shoulder shrug strength is normal. Motor Normal muscle bulk throughout. Normal muscle tone. No abnormal involuntary movements. Gait Casual gait is normal including stance, stride, and arm swing. 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 LUE Strength deltoid, biceps, triceps, wrist extensors, wrist extensors, wrist flexor, pottery kiln builder strength 5/5. RLE Strength illopsoas, quadriceps, tibialis anterior, and gastrocnemius strength 5/5. LLE Strength illopsoas, quadriceps, tibialis anterior, and gastrocnemius strength 5/5. Tone Normal tone x4 extremities. Reflexes: RUE biceps reflex 3, brachioradialis reflex 3 LUE biceps reflex 3, brachioradialis reflex 3 RLE knee reflex 3 LLE knee reflex 2 Finger Flexors TTP of cervical paraspinal muscles bilaterally Assessment and Plan Diagnoses and all orders for this visit: History of stroke h/o infarct in the left medulla/brainstem in 2013 and is treated with Plavix and aspirin. Stroke risk factors include hypertension and hyperlipidemia. Chronic migraine without aura with status migrainosus, not intractable (CMS/HCC) Chronic daily headache He experiences headaches greater than 15 times a month including migraines lasting greater than 4 hours. Previously was receiving Botox by Dr. Carson, but can no longer do these due to cost. He has failed: Elavil, Baclofen, Maxalt, Trileptal, metoprolol, Cambia, Lyrica, gabapentin, Trileptal, Cymbalta, nurtec, NSAIDs. Aimovig became ineffective. Ubrelvy was ineffective. Due to his history of stroke he should avoid triptans. Ajovy has been helpful. Headaches have been more frequent but believesweather is the trigger. Obstructive sleep apnea Patient has underlying DEANA and remains compliant with his CPAP. He has tried elavil, nortriptyline,and remeron. He is currently taking doxepin per his PCP. Restless leg syndrome Patient experiencing sensations as if his legs are moving and restless sensation that is worse at night when he is trying to sleep. He is on a Requip and lyrica. He does not have benefit with melatonin. He has history of degenerative disc disease and lumbosacral radiculopathy likely contributing tohis symptoms. He has been supplementing iron with his PCP. Stable. Degenerative disc disease, lumbar Radiculopathy, lumbosacral region Patient has significant back pain since his lumbar spine surgery. He continues to follow with neurosurgery and pain management. He has underlying degenerative changes and lumbosacral radiculopathy. He is scheduled to see neurosurgery for another possible surgery. Cervical radiculopathy Degenerative disc disease, cervical Daily neck pain and varies in intensity. Patient has received benefit from cervical epidural injections in the past to help with his neck pain and headache prevention. He is unable to get these from pain management. Trigger injections continue to provide benefit. His symptoms have gradually increased and trigger injections continue to provide greater than 50% improvement in symptoms The patient experiences paresthesia and pain manifested as numbness and tingling to his hands, L>R. He had Lyrica increased by his surgeon at [facility] and we have since taken over dosing. Carpal tunnel syndrome, bilateral upper limbs bilateral median neuropathies that are moderate to severe in degree. He had CTS injections per ortho and has not had benefit. NEW DX: Hyper-reflexia Patient was found to be hyper-reflexive by Dr. Valdovinos who sent referral for evaluation. He is hyper-reflexive on exam today in office as well. He has worsening balance. Possible etiologies may include cervical myelopathy. BLE EMG 12/04/2022: revealed findings consistent with bilateral L5-S1 radiculopathies, moderate in degree electrically and more pronounced on the left. Labs 07/2022: revealed FE 55, Ferritin low at 13.3, folate 41. Lumbar spine MRI with and without contrast 05/28/2022: revealed nonspecific 3.2x3.6x6cm midline paraspinal fluid collection, sterile postoperative fluid collection vs abscess. There was also note of interval additional posterior fusion surgery at L5-S1 and improvement in previous spinal canal stenosis which extended from L4-L5 through L5-S1. Per review of neurosurgery note, seroma was favored. Nospinal canal stenosis at those levels. Cervical spine with and without contrast 05/28/2022: revealed mild cervical spondylosis with no significant change. Carotid ultrasound 08/13/21: revealed no hemodynamically significant stenosis. BUE EMG 04/2020: bilateral median neuropathies that were moderate to severe in degree BUE EMG 02/18/24: minimal CTS on the right and very mild remote C5 motor radiculopathy on the left. PLAN I have reviewed the EMG of the BUE with the patient Continue Lyrica 200mg PO TID for neuropathic pain. OARRS reviewed Continue Requip 1mg PO at bedtime for RLS Continue Ajovy for headache prevention. Continue Plavix and aspirin for secondary stroke prevention. Continue Cymbalta 60mg PO daily for musculoskeletal pain Continue Doxepin per PCP Continue to follow with PCP for stroke risk factor management. I will obtain an MRI of the cervical spine to assess for a structural lesion including degenerativecervical spine disease which may be contributing to the patient's symptoms. I will consider an MRI of the brain pending results of the MRI of the cervical spine. documented in this encounterGeneral Leonard Wood Army Community [id number] Evaluation note* Author Rafaelromero Montalvodiff [facility] Authored May 18, 2024 11:17am Highest weight: 311.0 lbs. H e is down 48.3 lbs. today. Start weight: 304.1 lbs. He is down 41.4 lbs. today with a weight of 262.7 lbs. He is up 1.2 lbs since last visit on 12/10/2023.. Starting Date: 07-18-2022. 1. Abnormal weight gain-significantly improved. 2. Morbid obesity-significant improvement of greater than a 12-1/2% weight loss with taking Ozempic 2 mg through patient assistance without side effects. He may have been diabetic in the past based on multiple increase blood sugars. His most recent fasting blood sugar was 86 and his A1c was down to 5.4. At this point he is still not going to start the bariatric surgery program at the [facility] as he feels doing well with our program and Ozempic. He should minimize or stop wine intake. 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 He had a negative recent colonoscopy. He should continue to take time to meal prep. He is still doing very good with regular exercise 1 hour a day at [employer] doing both strength and cardio. He should continue to treat with long-term lifestyle changes of improved nutrition, increased exercise and activity, stress reduction, adequate sleep and behavioral modification versus short-term dieting. We cannot consider phentermine with his history of possible CAD. He has considered the bariatric surgery program at the [facility]. 3. Prediabetes he had an A1c up to 6.2 but recent A1c better now normal at 5.4/he has had multiple blood sugars that have been in the diabetic range but may not been fasting. He notes at the [facility] he told he was diabetic. Continue treatment with long-term healthy lifestyle change, decreased simple sweets and refined starches, increased exercise and activity and long-term weight loss. He needs close long-term follow-up for this condition to prevent diabetes. 4. Hypertension-well controlled. He will continue to treat with a low-salt diet, decreased processed and restaurant foods, healthy lifestyle changes and achieve long-term weight loss. Monitor outside the office for confirmation of good control. 5. Obstructive sleep apnea-severe requiring CPAP. Should be improving with good sleep hygiene and weight loss. 6. OA knees-treat with healthy exercise is now working out at [employer] every other day and weight loss. 7. History of CVA-treat with healthy lifestyle changes and good control of his blood pressure. 8. Probable CAD-currently following up with cardiology and doing better with his present treatment. 9. Chronic low back pain-status post multiple surgeries. He is on disability. He will continue to follow-up with pain management. Treat with weight loss and healthy lifestyle change. 10. Mixed hyperlipidemia-still abnormal but improving with overall much healthier eating and high-dose atorvastatin 80 mg. He will continue to treat with decreasing the simple sweets, added sugars, refined starches, and bad/added fats, increasing activity and exercise and continued long-term weight loss. 11. Fatty liver/fib 4 score of 2.18-continue to treat with healthy lifestyle changes and greater than 10% weight loss. 12. Metabolic syndrome-treat with long-term healthy lifestyle changes, behavioral changes, healthy nutritional changes, increased activity and exercise and achieve long-term weight loss. Follow up with me in 6-8 weeks. New labs needed: Up-to-date. He will continue regular blood work with his PCP Dr. Valdovinos, cardiology or GI. FibroScan ordered. Author Kayleigh López [facility] Authored July 28, 2024 1 :32pm Highest weight: 311.0 lbs. H e is down 40.0lbs. today. Start weight: 304.1 lbs. He is down 33.1 lbs. today with a weight of 271.0 lbs. He is up 8.3 lbs since last visit on 05/18/2024.. Starting Date: 07-18-2022. 1. Abnormal weight gain-significantly improved. 2. Morbid obesity-significant improvement of greater than a 12-1/2% weight loss with taking Ozempic 2 mg through patient assistance without side effects. He may have been diabetic in the past based on multiple increase blood sugars. His most recent fasting blood sugar was 86 and his A1c was down to 5.4. At this point he is still not going to start the bariatric surgery program at the [facility] as he feels doing well with our program and Ozempic. He should minimize or stop wine intake. 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 He had a negative recent colonoscopy. He should continue to take time to meal prep. He is still doing very good with regular exercise 1 hour a day at [employer] doing both strength and cardio. He should continue to treat with long-term lifestyle changes of improved nutrition, increased exercise and activity, stress reduction, adequate sleep and behavioral modification versus short-term dieting. We cannot consider phentermine with his history of possible CAD. He has considered the bariatric surgery program at the [facility]. 3. Prediabetes he had an A1c up to 6.2 but recent A1c better now normal at 5.4/he has had multiple blood sugars that have been in the diabetic range but may not been fasting. He notes at the [facility] he told he was diabetic. Continue treatment with long-term healthy lifestyle change, decreased simple sweets and refined starches, increased exercise and activity and long-term weight loss. He needs close long-term follow-up for this condition to prevent diabetes. 4. Hypertension-well controlled. He will continue to treat with a low-salt diet, decreased processed and restaurant foods, healthy lifestyle changes and achieve long-term weight loss. Monitor outside the office for confirmation of good control. 5. Obstructive sleep apnea-severe requiring CPAP. Should be improving with good sleep hygiene and weight loss. 6. OA knees-treat with healthy exercise is now working out at [employer] every other day and weight loss. 7. History of CVA-treat with healthy lifestyle changes and good control of his blood pressure. 8. Probable CAD-currently following up with cardiology and doing better with his present treatment. 9. Chronic low back pain-status post multiple surgeries. He is on disability. He will continue to follow-up with pain management. Treat with weight loss and healthy lifestyle change. 10. Mixed hyperlipidemia-still abnormal but improving with overall much healthier eating and high-dose atorvastatin 80 mg. He will continue to treat with decreasing the simple sweets, added sugars, refined starches, and bad/added fats, increasing activity and exercise and continued long-term weight loss. 11. Fatty liver/fib 4 score of 2.18-continue to treat with healthy lifestyle changes and greater than 10% weight loss. 12. Metabolic syndrome-treat with long-term healthy lifestyle changes, behavioral changes, healthy nutritional changes, increased activity and exercise and achieve long-term weight loss. Follow up with me in 6-8 weeks. New labs needed: Up-to-date. He will continue regular blood work with his PCP Dr. Valdovinos, cardiology or GI. FibroScan ordered. [facility] Work Phone: 1([phone]) 802-830611-20-2024 Evaluation note* Author Rafael Holbrook [facility] Authored May 18, 2024 11:17am Highest weight: 311.0 lbs. H e is down 48.3 lbs. today. Start weight: 304.1 lbs. He is down 41.4 lbs. today with a weight of 262.7 lbs. He is up 1.2 lbs since last visit on 12/10/2023.. Starting Date: 07-18-2022. 1. Abnormal weight gain-significantly improved. 2. Morbid obesity-significant improvement of greater than a 12-1/2% weight loss with taking Ozempic 2 mg through patient assistance without side effects. He may have been diabetic in the past based on multiple increase blood sugars. His most recent fasting blood sugar was 86 and his A1c was down to 5.4. At this point he is still not going to start the bariatric surgery program at the [facility] as he feels doing well with our program and Ozempic. He should minimize or stop wine intake. 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 He had a negative recent colonoscopy. He should continue to take time to meal prep. He is still doing very good with regular exercise 1 hour a day at [employer] doing both strength and cardio. He should continue to treat with long-term lifestyle changes of improved nutrition, increased exercise and activity, stress reduction, adequate sleep and behavioral modification versus short-term dieting. We cannot consider phentermine with his history of possible CAD. He has considered the bariatric surgery program at the [facility]. 3. Prediabetes he had an A1c up to 6.2 but recent A1c better now normal at 5.4/he has had multiple blood sugars that have been in the diabetic range but may not been fasting. He notes at the [facility] he told he was diabetic. Continue treatment with long-term healthy lifestyle change, decreased simple sweets and refined starches, increased exercise and activity and long-term weight loss. He needs close long-term follow-up for this condition to prevent diabetes. 4. Hypertension-well controlled. He will continue to treat with a low-salt diet, decreased processed and restaurant foods, healthy lifestyle changes and achieve long-term weight loss. Monitor outside the office for confirmation of good control. 5. Obstructive sleep apnea-severe requiring CPAP. Should be improving with good sleep hygiene and weight loss. 6. OA knees-treat with healthy exercise is now working out at [employer] every other day and weight loss. 7. History of CVA-treat with healthy lifestyle changes and good control of his blood pressure. 8. Probable CAD-currently following up with cardiology and doing better with his present treatment. 9. Chronic low back pain-status post multiple surgeries. He is on disability. He will continue to follow-up with pain management. Treat with weight loss and healthy lifestyle change. 10. Mixed hyperlipidemia-still abnormal but improving with overall much healthier eating and high-dose atorvastatin 80 mg. He will continue to treat with decreasing the simple sweets, added sugars, refined starches, and bad/added fats, increasing activity and exercise and continued long-term weight loss. 11. Fatty liver/fib 4 score of 2.18-continue to treat with healthy lifestyle changes and greater than 10% weight loss. 12. Metabolic syndrome-treat with long-term healthy lifestyle changes, behavioral changes, healthy nutritional changes, increased activity and exercise and achieve long-term weight loss. Follow up with me in 6-8 weeks. New labs needed: Up-to-date. He will continue regular blood work with his PCP Dr. Valdovinos, cardiology or GI. FibroScan ordered. Author Rafael Holbrook [facility] Authored July 28, 2024 1 :54pm Highest weight: 311.0 lbs. H e is down 40.0lbs. today. Start weight: 304.1 lbs. He is down 33.1 lbs. today with a weight of 271.0 lbs. He is up 8.3 lbs since last visit on 05/18/2024.. Starting Date: 07-18-2022. 1. Abnormal weight gain-significantly improved. 2. Morbid obesity-significant improvement of greater than a 10% weight loss with taking Ozempic 2 mg through patient assistance without side effects. He is gotten some recent weight regain with not getting in this 45 minutes of bike daily with some low back pain. His back specialist would [...] still has significant fatty liver by FibroScan S3/F0- F1. 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 He had a negative recent colonoscopy. He should continue to take time to meal prep. He is still doing very good with regular exercise 1 hour a day at [employer] doing both strength and cardio. He should continue to treat with long-term lifestyle changes of improved nutrition, increased exercise and activity, stress reduction, adequate sleep and behavioral modification versus short-term dieting. We cannot consider phentermine with his history of possible CAD. He has considered the bariatric surgery program at the [facility]. 3. Prediabetes he had an A1c up to 6.2 but recent A1c better now normal at 5.4/he has had multiple blood sugars that have been in the diabetic range but may not been fasting. He notes at the [facility] he told he was diabetic. Continue treatment with long-term healthy lifestyle change, decreased simple sweets and refined starches, increased exercise and activity and long-term weight loss. He needs close long-term follow-up for this condition to prevent diabetes. 4. Hypertension-well controlled. He will continue to treat with a low-salt diet, decreased processed and restaurant foods, healthy lifestyle changes and achieve long-term weight loss. Monitor outside the office for confirmation of good control. 5. Obstructive sleep apnea-severe requiring CPAP. Should be improving with good sleep hygiene and weight loss. 6. OA knees-treat with healthy exercise is now working out at [employer] every other day and weight loss. He [...] weight loss. Follow up with me in 6-8 weeks. New labs needed: Up-to-date. He will continue regular blood work with his PCP Dr. Valdovinos, cardiology or GI. [facility] Work Phone: 1(758) 629-906611-08-2024 Telephone encounter Note* Telephone Encounter - Yolanda Conde - 05/06/2024 1:39 PM EST Pato Jackson MRI Spine lumbar report scanned to Epic [facility]11-08-2024 Miscellaneous Notes* Telephone Encounter - Yolanda Conde - 05/06/2024 1:39 PM EST Pato Beeus MRI Spine lumbar report scanned to Epic [facility] Telephone encounter Note * Telephone Encounter - Naren Bear - 05/05/2024 12:21 PM EST Patient call to ask for office fax number to send MRI report. [facility]11-07-2024 Miscellaneous Notes* Telephone Encounter - Naren Bear - 05/05/2024 12:21 PM EST Patient call to ask for office fax number to send MRI report. [facility] Telephone encounter Note * Telephone Encounter - Becca Herbert LPN - 04/11/2024 2:07 PM EDT [facility] TO [facility]. [id number] Miscellaneous Notes* Telephone Encounter - Becca Herbert LPN - 04/11/2024 2:07 PM EDT MEDICATION SENT TO PHARMACY. * Telephone Encounter - Mickey Avilez - 04/11/2024 1:13 PM EDT Please send [facility] and thank you! documented in this encounterGeneral [facility] [id number] Telephone encounter Note* Telephone Encounter - Mickey Fatmata - 04/11/2024 1:13 PM EDT Please send testosterone and syringes to [facility] please and thank you! [id number] Telephone encounter Note* Telephone Encounter - Mickey Fatmata - 04/01/2024 9:39 AM EDT [facility] and thank you! [facility] [id number] Miscellaneous Notes* Telephone Encounter - Mickeyvarghese Avilez - 04/01/2024 9:39 AM EDT [facility] and thank you! documented in this [facility]08-22-2024 History of Present illness Narrative* Shireen Ardon MA - 02/18/2024 11:30 AM EDT Images from the original note were not included. 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 Numbness in the hands and arms. L>R. Hx of shoulder replacements. No Hx of DM, takes Plavix Comments: Procedure explained to the patient who expressed understanding. documented in this encounterGeneral [facility] [id number] History of Present illness Narrative* RAIMUNDO Garcia - 02/16/2024 8:20 AM EDTAssociated Order(s): Trigger Point Injection: right cervical paraspinals, left cervical paraspinals Post-Procedure Diagnose(s): Chronic daily headache; Degenerative disc disease, cervical Subjective Mary Jimenez is a 63 y.o. year old male Chief Complaint Patient presents with Headache Restless Legs Past Medical History: Diagnosis Date Brachial neuritis or radiculitis 09/07/2014 Carpal tunnel syndrome 08/15/2014 Cervicalgia 01/20/2014 Chronic daily headache 05/19/2018 Chronic headache 02/10/2018 Chronic migraine without aura (CMS/HCC) 07/16/2018 Common migraine (CMS/HCC) 02/28/2014 Degenerative disc disease, cervical 04/21/2017 Depressed (CMS/HCC) 07/01/2017 Disturbance of skin sensation 10/25/2013 Fibromyalgia 11/07/2014 Foraminal stenosis of cervical region 02/10/2018 Headache 09/06/2013 Headache, chronic migraine without aura, intractable (CMS/HCC) 10/15/2018 Headache, migraine (CMS/HCC) 07/16/2018 Hx of being [place] [facility] Insomnia 04/21/2017 Insomnia, unspecified type 11/06/2014 Intractable migraine, unspecified migraine type (CMS/HCC) 07/16/2018 Migraine (CMS/HCC) 02/10/2018 Muscle spasm 11/07/2014 Myalgia 07/01/2017 Neck pain 04/21/2017 Obstructive sleep apnea 05/19/2018 Radiculopathy, lumbosacral region 10/25/2013 Stroke (CMS/HCC) 05/19/2018 Syndrome affecting cervical region 02/28/2014 Tension headache 10/05/2014 Transient alteration of awareness 03/22/2015 Past Surgical History: Procedure Laterality Date ANKLE SURGERY Right BACK SURGERY x2 IR CVC PICC 09/20/2021 IR CVC PICC Family History Problem Relation Name Age of Onset Hypertension Mother Hypertension Father Cancer Other Diabetes Other Seizures Other Stroke Other Hypertension Other Social History Tobacco Use Smoking status: Never Smokeless tobacco: Never Substance Use Topics Alcohol use: Yes HPI HEADACHE -on Ajovy -triggers done at last visit -he states they worked well for him -he is requesting to get a trigger today -pain prior to injection is /10 -pain post injection / -headaches have become more frequent -he thinks this could be because of weather change -report a daily headache for the past 2 weeks -located in the front and back of head -headache lasts most of the day -admits light sensitivity, no sound -admits some nausea, no vomiting -admits neck pain -pain on both sides -radiates in to his left shoulder -states left arm goes numb often -does not sleep well at night -averages 5 hours a night . RLS -on requip and lyrica -states legs have felt great -numbness and tingling in right foot -denies any leg weakness -balance is improving -admits to a recent fall -states he is in need of a new RX Duloxetine ROS Review of Systems Constitutional: Negative for activity change and appetite change. Respiratory: Negative. Cardiovascular: Negative. Gastrointestinal: Negative. Musculoskeletal: Positive for back pain, gait problem and neck pain. Neurological: Positive for numbness and headaches. Negative for weakness. Psychiatric/Behavioral: Positive for sleep disturbance. Objective Visit Vitals BP 122/84 Pulse 81 Resp 16 Ht 5' 9 Wt 267 lb SpO2 94% BMI 39.43 kg/m Smoking Status Never BSA 2.43 m Neurological Exam Mental Status Awake, alert and oriented to person, place and time. Recent and remote memory are intact. Speech isnormal. Language is fluent with no aphasia. Attention and concentration are normal. Fund of knowledge is appropriate for level of education. Cranial Nerves CN II: Visual acuity is normal. Visual paez full to confrontation. CN III, IV, : Extraocular movements intact bilaterally. Normal lids and orbits bilaterally. Pupils equal round and reactive to light bilaterally. CN V: Facial sensation is normal. CN VII: Full and symmetric facial movement. CN VIII: Hearing is normal. CN XI: Shoulder shrug strength is normal. Motor Normal muscle bulk throughout. Normal muscle tone. No abnormal involuntary movements. Gait Casual gait is normal including stance, stride, and arm swing. 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 LUE Strength deltoid, biceps, triceps, wrist extensors, wrist extensors, wrist flexor, pottery kiln builder strength 5/5. RLE Strength illopsoas, quadriceps, tibialis anterior, and gastrocnemius strength 5/5. LLE Strength illopsoas, quadriceps, tibialis anterior, and gastrocnemius strength 5/5. Tone Normal tone x4 extremities. Reflexes: RUE biceps reflex 2, brachioradialis reflex 2 LUE biceps reflex 2, brachioradialis reflex 2 RLE knee reflex 2 LLE knee reflex 2 TTP of cervical paraspinal muscles bilaterally Assessment and Plan Diagnoses and all orders for this visit: History of stroke h/o infarct in the left medulla/brainstem in 2013 and is treated with Plavix and aspirin. Stroke risk factors include hypertension and hyperlipidemia. Chronic migraine without aura with status migrainosus, not intractable (CMS/HCC) Chronic daily headache He experiences headaches greater than 15 times a month including migraines lasting greater than 4 hours. Previously was receiving Botox by Dr. Carson, but can no longer do these due to cost. He has failed: Elavil, Baclofen, Maxalt, Trileptal, metoprolol, Cambia, Lyrica, gabapentin, Trileptal, Cymbalta, nurtec, NSAIDs. Aimovig became ineffective. Ubrelvy was ineffective. Due to his history of stroke he should avoid triptans. Ajovy has been helpful. He continues with daily headaches. Obstructive sleep apnea Patient has underlying DEANA and remains compliant with his CPAP. He has tried elavil, nortriptyline,and remeron. He is currently taking doxepin per his PCP. Restless leg syndrome Patient experiencing sensations as if his legs are moving and restless sensation that is worse at night when he is trying to sleep. He is on a Requip and lyrica. He does not have benefit with melatonin. He has history of degenerative disc disease and lumbosacral radiculopathy likely contributing tohis symptoms. He has been supplementing iron with his PCP. Stable. Degenerative disc disease, lumbar Radiculopathy, lumbosacral region Patient has significant back pain since his lumbar spine surgery. He continues to follow with neurosurgery and pain management. He has underlying degenerative changes and lumbosacral radiculopathy. Cervical radiculopathy Degenerative disc disease, cervical Daily neck pain and varies in intensity. Patient has received benefit from cervical epidural injections in the past to help with his neck pain and headache prevention. He is unable to get these from pain management. Trigger injections continue to provide benefit. His symptoms have gradually increased and trigger injections continue to provide greater than 50% improvement in symptoms The patient experiences paresthesia and pain manifested as numbness and tingling to his hands, L>R. He had Lyrica increased by his surgeon at [facility] and we have since taken over dosing. He had a recent fall a month ago and has had increased neck pain and paresthesia to his hands bilaterally since. Carpal tunnel syndrome, bilateral upper limbs bilateral median neuropathies that are moderate to severe in degree. He had CTS injections per ortho and has not had benefit. BLE EMG 12/04/2022: revealed findings consistent with bilateral L5-S1 radiculopathies, moderate in degree electrically and more pronounced on the left. Labs 07/2022: revealed FE 55, Ferritin low at 13.3, folate 41. Lumbar spine MRI with and without contrast 05/28/2022: revealed nonspecific 3.2x3.6x6cm midline paraspinal fluid collection, sterile postoperative fluid collection vs abscess. There was also note of interval additional posterior fusion surgery at L5-S1 and improvement in previous spinal canal stenosis which extended from L4-L5 through L5-S1. Per review of neurosurgery note, seroma was favored. Nospinal canal stenosis at those levels. Cervical spine with and without contrast 05/28/2022: revealed mild cervical spondylosis with no significant change. Carotid ultrasound 08/13/21: revealed no hemodynamically significant stenosis. BUE EMG 04/2020: bilateral median neuropathies that were moderate to severe in degree PLAN Trigger injections today I will obtain an BUE EMG with nerve conduction studies and needle electrode exam to assess for a peripheral nerve process and help to differentiate between the above mentioned possible etiologies forthe patient's symptoms and explain the findings on neurological exam. This EMG/NCS study will help determine the severity of this process, determine if the process is axon loss or demyelinating in type, determine the presence of active axon loss, and help with proper localization of this process. Continue Lyrica 200mg PO TID for neuropathic pain. OARRS reviewed Continue Requip 1mg PO at bedtime for RLS Continue Ajovy for headache prevention. Continue Plavix and aspirin for secondary stroke prevention. Continue Cymbalta 60mg PO daily for musculoskeletal pain Continue Doxepin per PCP Continue to follow with PCP for stroke risk factor management. Consider updating cervical spine MRI pending course Patient advised to keep upcoming appointment with Dr. Rodriges Patient ID: Alfredo Jimenez is a 63 y.o. male. Trigger Point Injection: right cervical paraspinals, left cervical paraspinals on 02/16/2024 8:20 AM Indications: pain, muscle spasm and myalgia Details: 25 G needle Medications: 40 mg methylPREDNISolone Na Suc (PF) 40 MG; 3 mL bupivacaine 0.25 % Outcome: tolerated well, no immediate complications Procedure, treatment alternatives, risks and benefits explained, specific risks discussed. Consent was given by the patient. Patient was also seen today for trigger injections. During consent for the procedure, the patient denies cow milk allergy. The anesthetic used during the trigger injection was surface anesthesia. During the trigger point injection the patient was placed in a seated position. Patient has consented after being explained the risks, complications, and benefits; including pneumothorax for the trigger point in the upper quarters and in the interscapular region. This was done using sterile technique and surface anesthetic. The patient tolerated the procedure well. documented in this [facility]06-13-2024 Evaluation note* Author Rafael Holbrook [facility] Authored December 10, 2023 2:04 pm Plan Detail Assessment: Highest weight: 311.0 lbs. He is down 49.5 lbs. today. Start weight: 304.1 lbs. He is down 42.6 lbs. today with a weight of 261.5 lbs. He is down 17.5 lbs since last visit on 10/01/23. Starting Date: 07-18-2022. 1. Abnormal weight gain-significantly improved. 2. Morbid obesity-significant improvement with taking Ozempic 2 mg through patient assistance without side effects. At this point he is not going to start the bariatric surgery program at the [facility] as he feels doing well with our program and Ozempic. He should minimize or stop wine intake. 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 He had a negative recent colonoscopy. He should continue to take time to meal prep. He is still doing very good with regular exercise 1 hour a day at [employer] doing both strength and cardio. He should continue to treat with long-term lifestyle changes of improved nutrition, increased exercise and activity, stress reduction, adequate sleep and behavioral modification versus short-term dieting. We cannot consider phentermine with his history of possible CAD. He has considered the bariatric surgery program at the [facility]. 3. Prediabetes he had an A1c up to 6.2 but recent A1c better/normal at 5.5/he has had some blood sugars that have been in the diabetic range but may not been fasting. Despite significant weight loss and our program his recent fasting blood sugar was still 112.He notes at the [facility] he told he was diabetic. Continue treatment with long-term healthy lifestyle change, decreased simple sweets and refined starches, increased exercise and activity and long- term weight loss. He needs close long-term follow-up for this condition to prevent diabetes. 4. Hypertension- controlled. He will continue to treat with a low-salt diet, decreased processed and restaurant foods, healthy lifestyle changes and achieve long-term weight loss. Monitor outside the office for confirmation of good control. 5. Obstructive sleep apnea-severe requiring CPAP. Treat also with lifestyle changes and weight loss. 6. OA knees-treat with healthy exercise is now working out at [employer] every other day and weight loss. 7. History of CVA-treat with healthy lifestyle changes and good control of his blood pressure. 8. Probable CAD-currently following up with cardiology and doing better with his present treatment. 9. Chronic low back pain-status post multiple surgeries. He is on disability. He will continue to follow-up with pain management. Treat with weight loss and healthy lifestyle change. 10. Mixed hyperlipidemia-Recent worsening despite much healthier eating and high-dose atorvastatin 80 mg. He will continue to treat with decreasing the simple sweets, added sugars, refined starches, and bad/added fats, increasing activity and exercise and continued long-term weight loss. 11. Metabolic syndrome-treat with long-term healthy lifestyle changes, behavioral changes, healthy nutritional changes, increased activity and exercise and achieve long-term weight loss. Follow up with me in 6 weeks. New labs needed: Up-to-date. Continue regular blood work with his PCP Dr. Valdovinos, cardiology or GI. [facility] Work Phone: 1(150) 804-680406-13-2024 Evaluation note* Author Kayleigh López [facility] Authored May 18, 2024 10:51am Highest weight: 311.0 lbs. H e is down 48.3 lbs. today. Start weight: 304.1 lbs. He is down 41.4 lbs. today with a weight of 262.7 lbs. He is up 1.2 lbs since last visit on 12/10/2023.. Starting Date: 07-18-2022. 1. Abnormal weight gain-significantly improved. 2. Morbid obesity-significant improvement with taking Ozempic 2 mg through patient assistance without side effects. At this point he is not going to start the bariatric surgery program at the [facility] as he feels doing well with our program and Ozempic. He should minimize or stop wine intake. 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 He had a negative recent colonoscopy. He should continue to take time to meal prep. He is still doing very good with regular exercise 1 hour a day at [employer] doing both strength and cardio. He should continue to treat with long-term lifestyle changes of improved nutrition, increased exercise and activity, stress reduction, adequate sleep and behavioral modification versus short-term dieting. We cannot consider phentermine with his history of possible CAD. He has considered the bariatric surgery program at the [facility]. 3. Prediabetes he had an A1c up to 6.2 but recent A1c better/normal at 5.5/he has had some blood sugars that have been in the diabetic range but may not been fasting. Despite significant weight loss and our program his recent fasting blood sugar was still 112.He notes at the [facility] he told he was diabetic. Continue treatment with long-term healthy lifestyle change, decreased simple sweets and refined starches, increased exercise and activity and long- term weight loss. He needs close long-term follow-up for this condition to prevent diabetes. 4. Hypertension- controlled. He will continue to treat with a low-salt diet, decreased processed and restaurant foods, healthy lifestyle changes and achieve long-term weight loss. Monitor outside the office for confirmation of good control. 5. Obstructive sleep apnea-severe requiring CPAP. Treat also with lifestyle changes and weight loss. 6. OA knees-treat with healthy exercise is now working out at [employer] every other day and weight loss. 7. History of CVA-treat with healthy lifestyle changes and good control of his blood pressure. 8. Probable CAD-currently following up with cardiology and doing better with his present treatment. 9. Chronic low back pain-status post multiple surgeries. He is on disability. He will continue to follow-up with pain management. Treat with weight loss and healthy lifestyle change. 10. Mixed hyperlipidemia-Recent worsening despite much healthier eating and high-dose atorvastatin 80 mg. He will continue to treat with decreasing the simple sweets, added sugars, refined starches, and bad/added fats, increasing activity and exercise and continued long-term weight loss. 11. Metabolic syndrome-treat with long-term healthy lifestyle changes, behavioral changes, healthy nutritional changes, increased activity and exercise and achieve long-term weight loss. Follow up with me in 6 weeks. New labs needed: Up-to-date. Continue regular blood work with his PCP Dr. Valdovinos, cardiology or GI. [facility] Work Phone: 1(817) 145-345204-09-2024 Miscellaneous Notes* Telephone Encounter - Laura Truong RN - 10/06/2023 12:41 PM EDT BMI SPECIALTY CARE COORDINATION TELEPHONE ENCOUNTER Referral received from Dr. Holbrook of [facility] for patient to meet with Dr. Marks and consider a bariatric surgery pathway. Upon the direction of Dr. Marks, this RN placed call to patient to provide information about [facility] program and assist with registration and scheduling. No answer. Left brief vmm including contact info for this RN and requested call back. Will monitor and try again to reach patient if no call back received. [facility] Evaluation note* Author Rafael Holbrook [facility] Authored October 01, 2023 3:00 pm Highest weight: 311.0 lbs. H e is down 32.0 lbs. today. Start weight: 304.1 lbs. He is down 25.1 lbs. today with a weight of 279.0 lbs. He is up 4.9 lbs since last visit on 07/13/2023. Starting Date: 07-18-2022. 1. Abnormal weight gain-significantly improved. 2. Morbid obesity-significant improvement with taking Ozempic 2 mg through patient assistance but now down to 1 mg and still having significant diarrhea. We are going to hold Ozempic for at least 6 weeks to see what role it is playing in his diarrhea requiring pancreatic enzyme and Imodium. He would like to start the bariatric surgery program at the [facility]. 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 He had a negative recent colonoscopy. He should continue to take time to meal prep. He is still doing very good with regular exercise 1 hour a day at [employer] doing both strength and cardio. He should continue to treat with long-term lifestyle changes of improved nutrition, increased exercise and activity, stress reduction, adequate sleep and behavioral modification versus short-term dieting. We cannot consider phentermine with his history of possible CAD. He has considered the bariatric surgery program at the [facility]. 3. Prediabetes he had an A1c up to 6.2 but recent A1c better/normal at 5.4/he has had some blood sugars that have been in the diabetic range but may not been fasting. He notes at the [facility] he told he was diabetic. Continue treatment with long-term healthy lifestyle change, decreased simple sweets and refined starches, increased exercise and activity and long-term weight loss. He needs close long-term follow-up for this condition to prevent diabetes. 4. Hypertension- controlled. He will continue to treat with a low-salt diet, decreased processed and restaurant foods, healthy lifestyle changes and achieve long-term weight loss. Monitor outside the office for confirmation of good control. 5. Obstructive sleep apnea-severe requiring CPAP. Treat also with lifestyle changes and weight loss. 6. OA knees-treat with healthy exercise is now working out at [employer] every other day and weight loss. 7. History of CVA-treat with healthy lifestyle changes and good control of his blood pressure. 8. Probable CAD-currently following up with cardiology and doing better with his present treatment. 9. Chronic low back pain-status post multiple surgeries. He is on disability. He will continue to follow-up with pain management. Treat with weight loss and healthy lifestyle change. 10. Mixed hyperlipidemia-improved/resolved with much healthier eating and high- dose atorvastatin 80 mg. He will continue to treat with decreasing the simple sweets, added sugars, refined starches, and bad/added fats, increasing activity and exercise and continued long-term weight loss. 11. Metabolic syndrome-treat with long-term healthy lifestyle changes, behavioral changes, healthy nutritional changes, increased activity and exercise and achieve long-term weight loss. Follow up with me in 8 weeks. New labs needed: Up-to-date. Continue regular blood work with his PCP Dr. Valdovinos, cardiology or GI. Referral to bariatric surgery [facility] due to his multiple health related obesity issues. [facility] Work Phone: [phone]) 883-305004-04-2024 Evaluation note* Author Rafael Holbrook [facility] Authored October 01, 2023 3:00 pm Highest weight: 311.0 lbs. H e is down 32.0 lbs. today. Start weight: 304.1 lbs. He is down 25.1 lbs. today with a weight of 279.0 lbs. He is up 4.9 lbs since last visit on 07/13/2023. Starting Date: 07-18-2022. 1. Abnormal weight gain-significantly improved. 2. Morbid obesity-significant improvement with taking Ozempic 2 mg through patient assistance but now down to 1 mg and still having significant diarrhea. We are going to hold Ozempic for at least 6 weeks to see what role it is playing in his diarrhea requiring pancreatic enzyme and Imodium. He would like to start the bariatric surgery program at the [facility]. 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 He had a negative recent colonoscopy. He should continue to take time to meal prep. He is still doing very good with regular exercise 1 hour a day at [employer] doing both strength and cardio. He should continue to treat with long-term lifestyle changes of improved nutrition, increased exercise and activity, stress reduction, adequate sleep and behavioral modification versus short-term dieting. We cannot consider phentermine with his history of possible CAD. He has considered the bariatric surgery program at the [facility]. 3. Prediabetes he had an A1c up to 6.2 but recent A1c better/normal at 5.4/he has had some blood sugars that have been in the diabetic range but may not been fasting. He notes at the [facility] he told he was diabetic. Continue treatment with long-term healthy lifestyle change, decreased simple sweets and refined starches, increased exercise and activity and long-term weight loss. He needs close long-term follow-up for this condition to prevent diabetes. 4. Hypertension- controlled. He will continue to treat with a low-salt diet, decreased processed and restaurant foods, healthy lifestyle changes and achieve long-term weight loss. Monitor outside the office for confirmation of good control. 5. Obstructive sleep apnea-severe requiring CPAP. Treat also with lifestyle changes and weight loss. 6. OA knees-treat with healthy exercise is now working out at [employer] every other day and weight loss. 7. History of CVA-treat with healthy lifestyle changes and good control of his blood pressure. 8. Probable CAD-currently following up with cardiology and doing better with his present treatment. 9. Chronic low back pain-status post multiple surgeries. He is on disability. He will continue to follow-up with pain management. Treat with weight loss and healthy lifestyle change. 10. Mixed hyperlipidemia-improved/resolved with much healthier eating and high- dose atorvastatin 80 mg. He will continue to treat with decreasing the simple sweets, added sugars, refined starches, and bad/added fats, increasing activity and exercise and continued long-term weight loss. 11. Metabolic syndrome-treat with long-term healthy lifestyle changes, behavioral changes, healthy nutritional changes, increased activity and exercise and achieve long-term weight loss. Follow up with me in 8 weeks. New labs needed: Up-to-date. Continue regular blood work with his PCP Dr. Valdovinos, cardiology or GI. Referral to bariatric surgery [facility] due to his multiple health related obesity issues. Author La Breen [facility] Authored December 10, 2023 1:45 pm Plan Detail Assessment: Highest weight: 311.0 lbs. He is down 49.5 lbs. today. Start weight: 304.1 lbs. He is down 42.6 lbs. today with a weight of 261.5 lbs. He is down 17.5 lbs since last visit on 10/01/23. Starting Date: 07-18-2022. 1. Abnormal weight gain-significantly improved. 2. Morbid obesity-significant improvement with taking Ozempic 2 mg through patient assistance but now down to 1 mg and still having significant diarrhea. We are going to hold Ozempic for at least 6 weeks to see what role it is playing in his diarrhea requiring pancreatic enzyme and Imodium. He would like to start the bariatric surgery program at the [facility]. 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 He had a negative recent colonoscopy. He should continue to take time to meal prep. He is still doing very good with regular exercise 1 hour a day at [employer] doing both strength and cardio. He should continue to treat with long-term lifestyle changes of improved nutrition, increased exercise and activity, stress reduction, adequate sleep and behavioral modification versus short-term dieting. We cannot consider phentermine with his history of possible CAD. He has considered the bariatric surgery program at the [facility]. 3. Prediabetes he had an A1c up to 6.2 but recent A1c better/normal at 5.4/he has had some blood sugars that have been in the diabetic range but may not been fasting. He notes at the [facility] he told he was diabetic. Continue treatment with long-term healthy lifestyle change, decreased simple sweets and refined starches, increased exercise and activity and long-term weight loss. He needs close long-term follow-up for this condition to prevent diabetes. 4. Hypertension- controlled. He will continue to treat with a low-salt diet, decreased processed and restaurant foods, healthy lifestyle changes and achieve long-term weight loss. Monitor outside the office for confirmation of good control. 5. Obstructive sleep apnea-severe requiring CPAP. Treat also with lifestyle changes and weight loss. 6. OA knees-treat with healthy exercise is now working out at [employer] every other day and weight loss. 7. History of CVA-treat with healthy lifestyle changes and good control of his blood pressure. 8. Probable CAD-currently following up with cardiology and doing better with his present treatment. 9. Chronic low back pain-status post multiple surgeries. He is on disability. He will continue to follow-up with pain management. Treat with weight loss and healthy lifestyle change. 10. Mixed hyperlipidemia-improved/resolved with much healthier eating and high- dose atorvastatin 80 mg. He will continue to treat with decreasing the simple sweets, added sugars, refined starches, and bad/added fats, increasing activity and exercise and continued long-term weight loss. 11. Metabolic syndrome-treat with long-term healthy lifestyle changes, behavioral changes, healthy nutritional changes, increased activity and exercise and achieve long-term weight loss. Follow up with me in 8 weeks. New labs needed: Up-to-date. Continue regular blood work with his PCP Dr. Valdovinos, cardiology or GI. Referral to bariatric surgery [facility] due to his multiple health related obesity issues. [facility] Work Phone: 1(470) 884-717503-01-2024 History of Present illness Narrative* Danisha Bran MD - 08/28/2023 10:50 AM EST Subjective Mary Jimenez is a 63 y.o. [...] by mouth once daily at bedtime., Disp: ,Rfl: b complex 0.4 mg tablet, As directed, [...] mouth once daily. Do not crush, chew, orsplit., Disp: , Rfl: fluticasone (Flonase) 50 mcg/actuation [...] by mouth once daily. Do not crush orchew., Disp: , Rfl: onabotulinumtoxinA (BOTOX INJ), Every 90 days, Disp: , Rfl: pancrelipase, Sae-Hycf-Lzxk, (Creon) 36,000-114,000- 180,000 unit capsule,delayed release(DR/EC) capsule, Take 1 capsule by mouth once daily., Disp: , Rfl: potassium chloride CR 20 mEq ER tablet, Take 1 tablet (20 mEq) by mouth once daily. Do not crush orchew., Disp: , Rfl: pregabalin (Lyrica) 200 mg capsule, Take 1 capsule (200 mg) by mouth 3 times a day., Disp: , Rfl: QUEtiapine (SEROquel) 25 mg tablet, Take 1 tablet (25 mg) by mouth. 2-3 times daily as needed, Disp: , Rfl: rizatriptan (Maxalt) 10 mg tablet, Take 1 tablet (10 mg) by mouth 1 time. At the onset of headache.May repeat ievery 2 hours as needed. Do [...] Scribe Attestation By signing my name below, I, [email or web address] , Jessicaibelvin attest that this documentation has been prepared under the direction and in the presence of MD Marty. Provider Attestation - Scribe documentation All medical record entries made by the Scribe were at my direction and personally dictated by me. Ihave reviewed the chart and agree that the record accurately reflects my personal performance of the history, physical exam, discussion and plan. documented in [facility] encounterL[facility] Work Phone: 1(357) 433-282903-01-2024 Instructions* Patient Instructions* Mary Webster LPN - 08/28/2023 10:50 AM [...] Provided instructions on exercise. 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 Strongly stressed that he needs to completely stop. We will prescribe Medrol Dosepak. He can double up on the Flonase for a week or 2 if needed and also use lots of saline nasal spray as needed., Pharyngitis/tonsil lopharyngitis: adult home care material was published Jul, Adverse effect of other hznv-fnsaxp-onkj drugs, initial encounter (ICD-10 - T48.5X5A) See dictation above Jul, Other RTO as needed [facility] 01-24-2024 Evaluation note* Encounter Date Diagnosis [...] the following goals: - not reviewed today [facility] 01-18-2024 Evaluation note* Encounter Date Diagnosis [...] Other Patient is intrested in having the ordera system done, and will schedule a consult appointment with Dr. Salazar [facility] 01-15-2024 Evaluation note* Encounter Date Diagnosis [...] E88.81) Jun, Colon polyps (ICD-10 - K63.5) [facility] 01-15-2024 Evaluation note* Author Kayleigh López [facility] Authored October 01, 2023 2:05 pm Highest weight: 311.0 lbs. H e is down 32.0 lbs. today. Start weight: 304.1 lbs. He is down 25.1 lbs. today with a weight of 279.0 lbs. He is up 4.9 lbs since last visit on 07/13/2023. Starting Date: 07-18-2022. 1. Abnormal weight gain-significantly improved. 2. Morbid obesity-significant improvement since starting our program and taking Ozempic 2 mg through patient assistance, his only side effect being some mild diarrhea after he eats. He feels his symptoms have improved and he does not want to stop the Ozempic or cut back the dose. He is overdue for GI evaluation with his GI doctor Dr. Esparza and screening/diagnostic colonoscopy after having history of colon polyps. I have sent him for colonoscopy to make sure there is no other serious cause of his diarrhea other than related to Ozempic. He should continue to take time to meal prep. He is still doing very good with regular exercise 1 hour a day at [employer] doing both strength and cardio. He should continue to treat with long-term lifestyle changes of improved nutrition, increased exercise and activity, stress reduction, adequate sleep and behavioral modification versus short-term dieting. We cannot consider phentermine with his history of possible CAD. He has considered the bariatric surgery program at the [facility]. 3. Prediabetes he had an A1c up to 6.2 but recent A1c better/normal at 5.4/he has had some blood sugars that have been in the diabetic range but may not been fasting. He notes at the [facility] he told he was diabetic. Continue treatment with long-term healthy lifestyle change, decreased simple sweets and refined starches, increased exercise and activity and long-term weight loss. Continue patient assistance Ozempic. He needs close long-term follow-up for this condition to prevent diabetes. 4. Hypertension- controlled. He will continue to treat with a low-salt diet, decreased processed and restaurant foods, healthy lifestyle changes and achieve long-term weight loss. Monitor outside the office for confirmation of good control. 5. Obstructive sleep apnea-severe requiring CPAP. Treat also with lifestyle changes and weight loss. 6. OA knees-treat with healthy exercise is now working out at [employer] every other day and weight loss. 7. History of CVA-treat with healthy lifestyle changes and good control of his blood pressure. 8. Probable CAD-currently following up with cardiology and doing better with his present treatment. 9. Chronic low back pain-status post multiple surgeries. He is on disability. He will continue to follow-up with pain management. Treat with weight loss and healthy lifestyle change. 10. Mixed hyperlipidemia-improved/resolved with much healthier eating and high- dose atorvastatin 80 mg. He will continue to treat with decreasing the simple sweets, added sugars, refined starches, and bad/added fats, increasing activity and exercise and continued long-term weight loss. 11. Metabolic syndrome-treat with long-term healthy lifestyle changes, behavioral changes, healthy nutritional changes, increased activity and exercise and achieve long-term weight loss. Follow up with me in 8 weeks. New labs needed: Up-to-date. Continue regular blood work with his PCP Dr. Carpio, cardiology or GI. Referral to gastroenterology for colonoscopy to evaluate diarrhea and overdue for screening scheduled. [facility] Work Phone: 1([phone]) 429-536501-09-2024 Evaluation note* Encounter Date Diagnosis Assessment Notes [...] impact gut health (D) Probiotics and Prebiotics [facility] 12-21-2023 Evaluation note* Encounter Date Diagnosis Assessment Notes Treatment Notes Treatment Clinical Notes May, Obesity, unspecified classification, unspecified obesity type, unspecified whether serious comorbidity present (ICD-10 - E66.9) May, BMI 40.0-44.9, adult (ICD-10 - Z68.41) May, Other Summary of Visi t: (A) Reviewed the plate method (B) Discussed reducing daily Imodium (C) Emphasized finding consistency in balanced, healthy eating [facility] 11-02-2023 Evaluation note* Encounter Date Diagnosis [...] measures of success outside of scale weight [facility] 10-19-2023 Evaluation note* Encounter Date Diagnosis [...] E88.81) Mar, Colon polyps (ICD-10 - K63.5) [facility] 10-10-2023 Evaluation note* Encounter Date Diagnosis [...] as schedule d and sooner as needed [facility] 09-05-2023 Evaluation note* Encounter Date Diagnosis Assessment Notes Treatment Notes Treatment Clinical Notes Feb, Nausea (ICD-10 - R11.0) [facility] 08-17-2023 Evaluation note* Encounter Date Diagnosis [...] Jan, Metabolic syndrome X (ICD-10 - E88.81) [facility] 08-08-2023 Evaluation note* Encounter Date Diagnosis Assessment Notes Treatment Notes Treatment Clinical Notes Jan, Chronic rhinitis (ICD-10 - J31.0) [facility] 07-13-2023 Evaluation note* Encounter Date Diagnosis [...] at the store that better support goals [facility] 06-22-2023 Evaluation note* Encounter Date Diagnosis [...] was published Nov, Other RTO as needed [facility] 06-20-2023 Evaluation note* Encounter Date Diagnosis [...] Nov, Metabolic syndrome X (ICD-10 - E88.81) [facility] 06-06-2023 Evaluation note* Encounter Date Diagnosis Assessment Notes Treatment Notes Treatment Clinical Notes Nov, Essential (primary) hypertension (ICD-10 - I10) [facility] 05-30-2023 NoteCONSULTATION CONSULTATION DATE: 11/25/2022 TO: Jose Valdovinos D.O. CHIEF COMPLAINT: Includes severe left sided [...] t.i.d. I have reduced his use of Buffalo 5 mg pills t.i.d. to b.i.d., 80 [...] our patients to inform us about any npsz-spe-rqefybx medications or herbal remedies/nutritional supplements/alternative remedies. 2. [...] treatment options with their primary care provider.[facility] [id number] Note CONSULTATION PROCEDURE DATE: 11/04/2022 PROCEDURE: Right [...] of pain symptoms by at least 70%.[facility] [id number] Evaluation note* Encounter Date Diagnosis Assessment Notes [...] October, Metabolic syndrome X (ICD-10 - E88.81) [facility] 04-25-2023 Evaluation note* Encounter Date Diagnosis [...] patient set personal goal using given handout. [facility] 04-24-2023 Evaluation note* Encounter Date Diagnosis Assessment Notes Treatment Notes Treatment Clinical Notes Sep, Medial epicondylitis of left elbow (ICD-10 - M77.02) Sep, Ulnar neuropathy of left upper extremity (ICD-10 - G56.22) [facility] 04-19-2023 Evaluation note* Encounter Date Diagnosis [...] EMG for further evaluation and treatment options. [facility] 04-13-2023 Evaluation note* Encounter Date Diagnosis [...] as a result of adding Imdur by [facility]. Orthostatic fall precautions discussed. When he gets [...] lab panel because of his medical complexity. [facility] 04-13-2023 NoteCONSULTATION CONSULTATION DATE: 10/09/2022 TO: Jose Valdovinos D.O. HISTORY: Patient was seen today complaining [...] with his Lyrica. He does report the Buffalo is quite helpful and improves his quality [...] our patients to inform us about any klej-ivl-ezgsrxs medications or herbal remedies/nutritional supplements/alternative remedies. 2. [...] treatment options with their primary care provider.[facility] [id number] Evaluation note * Encounter Date Diagnosis Assessment Notes Treatment Notes Treatment Clinical Notes Sep, Impaired glucose tolerance (ICD-10 - R73.02) [facility] 03-29-2023 Evaluation note* Encounter Date Diagnosis [...] office today. Prior medical notes from Dr. Valdovinos and history have been reviewed. At this [...] treatment plan. We will continue to monitor. [facility] 03-23-2023 Evaluation note* Encounter Date Diagnosis Assessment Notes Treatment Notes Treatment Clinical Notes Aug, Left arm swelling (ICD-10 - M79.89) Aug, Left arm pain (ICD-10 - M79.602) [facility] 03-20-2023 Evaluation note* Encounter Date Diagnosis Assessment Notes Treatment Notes Treatment Clinical Notes Aug, Pain in left elbow (ICD-10 - M25.522) [facility] 02-27-2023 Evaluation note* Encounter Date Diagnosis [...] Jul, Metabolic syndrome X (ICD-10 - E88.81) [facility] 02-24-2023 Evaluation note* Encounter Date Diagnosis [...] discussion, he is going to call the [facility] bariatric clinic back and get his [...] did request referral and would prefer the [facility] or in [place]. I will have my staff refer him to the [facility] for a bariatric surgery consult. , Staying motivated while on a weight loss plan material was published Jul, Lumbar back pain with radiculopathy affecting left lower extremity (ICD-10 - M54.16) Continue with Dr. Spencer., Lumbar radiculopathy home care material was published Jul, Other RTO as schedule d and sooner as needed or pending above Please send today's EMR note to the bariatric surgery consult appointment [facility] 02-14-2023 NotePAIN MANAGEMENT CONSULTATION CONSULTATION DATE: 08/12/2022 Jose Valdovinos D.O. [id number] [id number] Dear Jose: Regarding our patient in common, . Mary Ojeda, I believe that the patient, with regards to his pain pathology, would improve substantially should he be able to aggressively lose some weight. Toward that effect, I believe the patient would benefit from continuous glucose monitoring and the possibility of the addition of a medication such as Ozempic along with chromium picolinate. A significant nguyễn talking was done by myself to Mary. Regards, Yanelis Spencer M.D. /[facility]02-14-2023 NotePAIN MANAGEMENT CONSULTATION CONSULTATION DATE: 08/12/2022 CHIEF [...] as to decreasing this. The patient takes Buffalo 5/325 b.i.d. The patient is requesting it [...] we will not be increasing his narcotics, Buffalo 5/325 on a b. i.d. and have recommended he decrease the Lyrica. The patient will be followed up in the office in two months. CC: Jose Valdovinos D.O.[facility] [id number] Evaluation note* Encounter Date Diagnosis Assessment Notes Treatment Notes Treatment Clinical Notes Jul, Prediabetes (ICD-10 - R73.09) Ozempic was denied by insurance as patient does not have diabetes this is not a covered medication. We will attempt to get Victoza covered with a diagnosis of prediabetes, cardiovascular risk factor since he had a stroke and needs better glucose control in addition to weight loss. Jul, Heart disease (ICD-10 - I51.9) Jul, Stroke (ICD-10 - I63.9) Jul, Cardiovascular risk factor (ICD-10 - Z91.89) [facility] 01-20-2023 Evaluation note* Encounter Date Diagnosis [...] mixed hyperlipidemia he follows closely with a banking assistant and is on several medications. We will [...] the week. Encouraged to take advantage of scaffold erector available at [facility] that can help work around limitations. [...] - I51.9) Jun, Snores (ICD-10 - R06.83) [facility] 01-05-2023 History of Present illness Narrative* Kevyn Cat PA-C - 07/03/2022 11:27 AM EST SPINE SURGERY ESTABLISHED This is a virtual visit using [employer] video visit. It required patient-provider interaction for [...] him pain. He has been going to [employer] to try massage beds, would like to [...] - Follow up in 4 months. SIGNATURE: Kevyn Cat PA-C PATIENT NAME: Mary Jimenez DATE: July 03, 2022 TIME: 11:27 AM PAGER: [facility] Miscellaneous Notes* Telephone Encounter - Greta Nunez RN - 07/03/2022 9:04 AM EST RAIMUNDO made aware of the message to review prior to virtual appointment today. documented in this encounterTr[facility]12-08-2022 NoteCONSULTATION CONSULTATION DATE: 06/05/2022 HISTORY OF PRESENT ILLNESS: This is a 62-year-old gentleman who has not been seen at the Pain Clinic since November of this year. He is returning today for his chronic lower back pain and requesting medication management. The patient has had a total of six back surgeries. Most recent was at the [facility] in July of this year. Approximately a week ago, the patient had a fall at home and spent two days in the hospital [facility] for deconditioning. According to the patient's report, they ruled out a TIA. He is on multiple medications and being managed by his PCP. He does have bilateral radiculitis to the posterior aspect of S1 bilaterally to the level of the heel. He is on Lyrica 200 mg t.i.d., Plavix, baclofen and magnesium. The clinic, in the past, had him on Buffalo 5/325 b.i.d., but he has had multiple prescribes since that time for multiple ailments. Currently, he is on no pain medications and is inquiring about returning to his Buffalo. Patient's REVIEW OF SYSTEMS / PAST MEDICAL [...] pain. PLAN: We will start him on Buffalo 5/325 b.i.d. for medication pain management. He is currently in [facility] and he is to continue that. Did not recommend any oral NSAIDs to the patient, as he does have third stage kidney failure. We will see the patient in three months' time for re-evaluation and medication management. Patient agrees with this plan.[id number] Evaluation + Plan note Future Scheduled Tests Radiology* MRI Spine Cervical w/o Contrast 05/28/22 [facility]11-29-2022 Evaluation note* Encounter Date Diagnosis Assessment Notes Treatment Notes Treatment Clinical Notes Apr, Other chronic pain (ICD-10 - G89.29) We had a long talk about the complexity of his chronic pain and need to continue following up with specialist. Per my chart review, it looks like Dr. Spencer did not want to be involved in his pain management until the surgeon was done. Because the surgeon is now done, no longer prescribing pain medicines, I encouraged the patient to call Dr. Spencer to get back into the office for [...] - N19) He is frustrated that in [place] they told him he needed to stop ibuprofen because of his stage III kidney failure. It is unclear whether that was diagnosed during a time of a sepsis acute illness admission. I did tell him that he should for now stay off ibuprofen. We printed a copy of his May 03 hospital BMP for him to take to his [place] physicians. It showed BUN 20, creatinine 1.59. Apr, Stroke (ICD-10 - I63.9) By the time of his hospital discharge she was felt he likely did not have a stroke/TIA but he remains on aspirin in addition to his Plavix for 30 days with neurology outpatient follow-up scheduled. Apr, Other RTO as schedule d and sooner as needed. [employer] Other [id number] Miscellaneous Notes* Telephone Encounter - Greta Nunez RN - 05/09/2022 2:09 PM EST Will forward for review. documented in this encounterTrumbull [facility] Center11-08-2022 Discharge summary Author Cathy Zavala [facility] May 06, 2022 3:14pm Note Date/Time May 06, 2022 3 :05pm [facility] [address] [place] [address] Discharge Summary Signed Patient: Mary Jimenez MR#: [id number] 2655 : 1960 Acct:[id number] Age/Sex: 61 / M Adm Date: 2 Loc: Room: [address] [place] [address]: Cathy Zavala MD Copies to: DO Cathy Bhatia MD~ Providers Date of Discharge: 05/06/22 Discharging Provider: Cathy Zavala Primary Care Provider: Jose Valdovinos Consults: 05/03/22 18:54 Consult to Neurology Routine Consult to Occupational Therapy Routine Consult to Physical Therapy Routine 05/06/22 09:41 Consult to Pain Management Routine 05/06/22 09:59 RICHAR [[facility] Transition of Care Referral] Routine Discharge Diagnosis [...] he was scheduled to get MRI at [facility]. Patient not able to get MRI [...] fluticasone propionate [Flonase Allergy Relief] 50 mcg/actuation Hickory,Suspension 2 spray INTRANASAL DAILY duloxetine [Cymbalta] 60 [...] Cathy Zavala Follow Up: [facility] [place] [Outside] - 06/10/22 3:40 pm (With Melia EUBANKS and Dr. Rodriges) [facility] Transitions of Care [Outside] - 05/07/22 9:45 am (You have been referred to the [facility] ([facility]) for a post discharge education visit because you have one or more conditions that have been associated with a moderate to high risk of complications that may increase the likelihood that you will be readmitted to the hospital again in the near future. .? Address:? [address] [place] [address], [address] NOTE:? PLEASE BRING ALL OF YOUR MEDICATION BOTTLES WITH YOU TO THE APPOINTMENT WELL YOUR DISCHARGE INSTRUCTIONS.) Jose Valdovinos DO [Primary Care Provider] - 05/27/22 1:15 [...] then.) Documented By: Cathy Zavala MD 05/06/22 1504 Signed By: <Electronically signed by Cathy Zavala MD> 05/06/22 1514 [facility] Work Phone: 1(386) 410-134511-08-2022 Progress note Author Cathy Zavala [facility] May 06, 2022 2:21pm Note Date/Time May 06, 2022 2 :21pm [facility] [address] [place] [address] Hospitalist Progress Note Signed Patient: Mary Jimenez MR#: [id number] 2655 : 1960 Acct:[id number] Age/Sex: 61 / M Adm Date: 2 Loc: 4N Room: 8C8062-8 Type: ADM INOo Attending Dr: Cathy Zavala MD Copies to: ~ Date of Service: 05/06/2022 Subjective Subjective Narrative: Patient examined at bedside with no overnight event. He has been able to ambulate with physical therapy but continues to complain of back pain radiating to right lower extremity. Scheduled for MRI at [facility] due to presence of spinal stimulator. [...] 05/04/22 14:00 05/06/22 09:37 Duloxetine 30 Mg Capsule.Dr PO 05/04/23 13:59 30 mg TID YNES Administration Enoxaparin Sodium 40 mg 05/04/22 10:00 05/06/22 09:38 Enoxaparin 40 Mg/0.4 Ml Syringe SUBCUT 05/04/23 09:59 40 mg DAILY@10 YNES Administration Finasteride 5 mg 05/04/22 09:00 05/06/22 09:40 Finasteride 5 Mg Tablet PO 05/04/23 08:59 5 mg DAILY YNES Administration Fluticasone Propionate 2 spray 05/04/22 15:30 05/04/22 17:38 Fluticasone Propionate Hickory 120 Hickory/16 Gm Bottle INTRANASAL 05/04/23 15:29 2 spray [...] significant stenosis. Documented By: Cathy Zavala MD 05/06/221416 Signed By: <Electronically signed by Cathy Zavala MD> 05/06/22 1421 [facility] Work Phone: 1(116) 443-343811-08-2022 Consult note Author Xavi Smith [facility] May 07, 2022 12:29pm Note Date/Time May 06, 2022 2 :10pm [facility] [address] [place] [address] Pain Management Consult Note Signed Patient: Mary Jimenez MR#: [id number] 2655 : 1960 Acct:[id number] Age/Sex: 61 / M Adm Date: 2 Loc: 4N Room: [address] [place] [address] Type: DIS INOo Attending Dr: Cathy Zavala MD Copies to: DO Cathy Bhatia MD Sherif S Zaky, MD~ HPI Data of Consult Consult date: 05/06/22 Primary Care Provider: Jose Valdovinos DO Consult Narrative Reason for consult: Low [...] back surgeries. Patient used to see Dr Spencer for pain management and currently sees a Pain management doctor in [place]. Pain management was consultedto evaluate for interventional [...] mg PO DAILY 03/30/17 [History Confirmed 05/03/22] rvuzfyob-ciherkwr-ihkyc acid 400 mcg-vit K 20 mcg-lycop 300 [...] <Electronically signed by Xavi Smith MD> 05/07/22 1225 [facility] Work Phone: 1(793) 947-360911-08-2022 Progress note Author Se Rodriges [facility] May 06, 2022 4:12pm Note Date/Time May 06, 2022 8 :20am [facility] [address] [place] [address] Neurology Progress Note Signed Patient: Mary Jimenez MR#: [id number] 2655 : 1960 Acct:[id number] Age/Sex: 61 / M Adm Date: 2 Loc: Room: [address] [place] [address] Type: ADM INOo Attending Dr: Cathy Zavala [...] compared to the left. CEREBELLAR EXAM: * Abumfd-ij-zqbq and alternating movements are intact and normal in bilateral upper extremities * Dtqe-am-yeyw and alternating movements are intact and normal [...] Recommendations OT Recommended Discharge Home with Home Health,Senior Care Facility Location OT Recommended Services at 19/01 Supervision Discharge PT Recommendations PT Recommended Discharge Home with Home Health,Senior Care Facility Location PT Recommended Services at Physical [...] year on his lumbar spine at the [facility]. He had discectomy and fusion from L3 [...] the plan of care and confirmed the GROUNDS PERSON note The patient is a 61-year-old male [...] and recommendations for either home health or assisted facility. The patient will need physical therapy upon discharge. The patient has pain management physician in [facility] which she can follow-up with or can see pain management at [facility]. The patient can attempt repeat MRI scan as an outpatient and a large bore MRI scanner. Code(s): G43.009 - Migraine without aura, not intractable, without status migrainosus Status: Acute (2) Sepsis: Code(s): A41.9 - Sepsis, unspecified organism Status: Acute Documented By: LYN Solis 0819 Signed By: <Electronically signed by LYN Clark> 05/06/22 0944 <Electronically signed by MD Se Rodriges> 05/06/22 [facility] Work Phone: 1(789) 476-486511-07-2022 Progress note Author Se Rodriges [facility] May 05, 2022 5:07pm Note Date/Time May 05, 2022 9 :04am [facility] [address] [place] [address] Neurology Progress Note Signed Patient: Mary Jimenez MR#: [id number] 2655 : 1960 Acct:[id number] Age/Sex: 61 / M Adm Date: 2 Loc: 4N Room: 4H7637-4 Type: ADM INOo Attending Dr: Cathy Zavala [...] compared to the left. CEREBELLAR EXAM: * Snuqqp-qa-cvpm and alternating movements are intact and normal in bilateral upper extremities * Arwr-nt-beoy and alternating movements are intact and normal [...] Recommendations OT Recommended Discharge Home with Home Health,Senior Care Facility Location OT Recommended Services at 19/01 Supervision Discharge PT Recommendations PT Recommended Discharge Home with Home Health,Senior Care Facility Location PT Recommended Services at Physical [...] year on his lumbar spine at the [facility]. He had discectomy and fusion from L3 [...] the plan of care and confirmed the GROUNDS PERSON note Patient is a 61-year-old male with [...] 05/05/22 1212 <Electronically signed by MD Se Rodriges> 05/05/22 [facility] Work Phone: 1(400) 354-771811-07-2022 Progress note Author Cathy Zavala [facility] May 05, 2022 1:17pm Note Date/Time May 05, 2022 1 :12pm [facility] [address] [place] [address] Hospitalist Progress Note Signed Patient: Mary Jimenez MR#: [id number] 2655 : 1960 Acct:[id number] Age/Sex: 61 / M Adm Date: 2 Loc: 4N Room: 1D1944-5 Type: ADM INOo Attending Dr: Cathy Zavala [...] spray 05/04/22 15:30 05/04/22 17:38 Fluticasone Propionate Hickory 120 Hickory/16 Gm Bottle INTRANASAL 05/04/23 15:29 2 spray [...] 05/04/22 09:00 05/05/22 10:04 Omeprazole 20 Mg Capsule. PO 05/04/23 08:59 [...] <Electronically signed by Cathy Zavala MD> 05/05/22 1310 [facility] Work Phone: 1(723) 645-480711-06-2022 Progress note Author Cathy Zavala [facility] May 04, 2022 4:15pm Note Date/Time May 04, 2022 4 :11pm [facility] [address] [place] [address] Hospitalist Progress Note Signed Patient: Mary Jimenez MR#: [id number] 2655 : 1960 Acct:[id number] Age/Sex: 61 / M Adm Date: 2 Loc: 4N Room: 8G8006-4 Type: ADM IN Attending Dr: Cathy Zavala MD Copies to: ~ Date of Service: 05/04/2022 Subjective Subjective Narrative: Patient complaining of right leg pain which is chronic and requesting to resume his Buffalo. He was not able to sleep well [...] Propionate 2 spray 05/04/22 15:30 Fluticasone Propionate Hickory 120 Hickory/16 Gm Bottle INTRANASAL 05/04/23 15:29 DAILY PRN [...] 05/04/22 09:00 05/04/22 09:32 Omeprazole 20 Mg Capsule. PO 05/04/23 08:59 [...] <Electronically signed by Cathy Zavala MD> 05/04/22 [facility] Work Phone: 1([phone]) 815-185411-06-2022 Consult note Author Ortega Haskins [facility] May 04, 2022 1:26pm Note Date/Time May 04, 2022 9 :56am [facility] [address] [place] [address] Neurology Consult Note Signed Patient: Mary Jimenez MR#: [id number] 2655 : 1960 Acct:[id number] Age/Sex: 61 / M Adm Date: 2 Loc: Room: [address] [place] [address] Type: ADM IN Attending Dr: Cathy Zavala MD Copies to: DO Jose Cao DO Mazhar Rahman, MD~ HPI Consult Date: 05/04/22 Icer Machine Operator: Ortega Haskins DO [facility] Vaccinated for COVID-19?: Yes Medical History (Updated 05/03/22 @ 20:36 by Jessica Borrego RN) CVA (cerebral vascular accident) Hypertension Morbid [...] mg PO DAILY 03/30/17 [History Confirmed 05/03/22] uhpputgj-pazrbvze-ylffw acid 400 mcg-vit K 20 mcg-lycop 300 [...] Eagle Prince M.D.05/03/2022 3:33 PM Dictation Location: [place] [address] Chest X-Ray 05/03/22 14:44 IMPRESSION: No acute process. Impression dictated by: Eagle Prince M.D.05/03/2022 3:05 PM Dictation Location: [place] [address] Assessment/Plan (1) Atypical migraine: Assessment/Problem Details: HPI: [...] <Electronically signed by Ortega Haskins DO> 05/04/22 2046 [facility] Work Phone: [phone]) 137-556611-05-2022 History and physical note Author Cathy Zavala [facility] May 03, 2022 6:54pm Note Date/Time May 03, 2022 6 :54pm [facility] [address] [place] [address] Hospitalist H&P Signed Patient: Mary Jimneez MR#: [id number] 2655 : 1960 Acct:[id number] Age/Sex: 61 / M Adm Date: 2 Loc: Room: [address] [place] [address] Type: ADM IN Attending Dr: Cathy Zavala MD Copies to: DO Cathy Bhatia MD~ HPI DATE OF EXAMINATION: 05/03/22 CHIEF [...] in the beginning of the year at [facility]. He was seen in the emergency room in August and was transferred to the [facility] from the emergency room due to concern for infection and had positive blood cultures. Patient cannot recall the details but mentioned after getting discharged from the hospital he stayed in assisted facility for 3-month. He has chronic back [...] mg PO DAILY 03/30/17 [History Confirmed 05/03/22] hlwtxvkj-uioonldo-nhmyv acid 400 mcg-vit K 20 mcg-lycop 300 [...] % (Auto) 17.2 % (.) 05/03/22 14:46 [place] % (Auto) 9.5 % (.) 05/03/22 14:46 Eos % (Auto) 4.5 % (.) 05/03/22 14:46 Baso % (Auto) 1.1 % (.) 05/03/22 14:46 Neut # (Auto) 5.0 x10E3/uL (1.8-7.7) 05/03/22 14:46 Lymph # (Auto) 1.3 x10E3/uL (1.00-4.8) 05/03/22 14:46 Broome # (Auto) 0.7 x10E3/uL (0.0-0.8) 05/03/22 14:46 [...] pH 6.0 (5.0-9.0) 05/03/22 15:55 Ur Specific [place] 1.015 (1.001-1.030) 05/03/22 15:55 Urine Protein Negative [...] precaution. Documented By: Cathy Zavala MD 05/03/22 1913 Signed By: <Electronically signed by Cathy Zavala MD> 05/03/22 1854 [facility] Work Phone: 1(377) 162-700011-01-2022 Miscellaneous Notes* Telephone Encounter - Heena Andino Machine Sewer - 04/29/2022 4:06 PM EDT pt returning RN call per message below. * Telephone Encounter - Anni Douglas RN - 04/29/2022 3:24 PM EDT Left message on voicemail for patient to call office back regarding Pre- Procedure Information for spine procedure on 05[facility]13[facility]20[facility] at [facility]. documented in this encounterTrumbull [facility] Medical Center10-27-2022 Miscellaneous Notes* Telephone Encounter - Greta Nunez RN - 04/24/2022 10:39 AM EDT Form signed and faxed to number requested. Faxed verification received. * Telephone Encounter - Macrina Hartmann - 04/23/2022 4:02 PM EDT Received POC from [facility] requesting signature via fax. Scanned into [facility] [employer]. documented in this encounterTrumbull Regional Medical Center10-20-2022 Miscellaneous Notes* Telephone Encounter - Christine Gutierrez [...] and tylenol. Please return patients call to [phone]. documented in this encounterTrumbull Regional Medical Center10-17-2022 Miscellaneous Notes* Telephone Encounter - Greta Nunez RN - 04/14/2022 10:18 AM EDT Will forward for review. documented in this encounterTrumbull Regional Medical Center10-14-2022 Evaluation note* Encounter Date Diagnosis Assessment Notes [...] (ICD-10 - M47.816) He will continue with [facility] back surgeon for follow-up and also possible [...] the upcoming MRI and follow-up with Dr. Zheng. I will send today's EMR note which includes his labs to Dr. Zheng. Mar, Renal failure, unspecified chronicity (ICD-10 - [...] Please send today's EMR note to Dr. Zheng of orthopedics. , Fluticasone nasal spray material was published [employer] Other [id number] Instructions* Patient Instructions* Laura Beltran PA-C - 04/09/2022 1:42 PM EDT Please update us tomorrow regarding drainage on dressing. Then send a picture via [employer] on Monday 04/16. PT order is in [...] (prilosec) while taking ibuprofen. documented in this encounterTrumbull Regional Medical Center10-12-2022 History of Present illness Narrative* Laura Beltran PA-C - 04/09/2022 1:23 PM EDT [...] is no drainage he can start PT. grounds/maintenance specialist coming tomorrow for dressing change, recommend letting [...] which included preparing to see the patient, wfpt-cl-gsbw patient care, completing clinical documentation, performing a medically appropriate examination, counseling and educating the patient/family/caregiver, and communicating with other HCPs (not separately reported). SIGNATURE: Laura Beltran PA-C PATIENT NAME: Mary Jimenez DATE: April 09, 2022 TIME: 1:23 PM PAGER: documented in this encounterTrumbull Regional Medical Center10-04-2022 Miscellaneous Notes* Telephone Encounter - Christine Gutierrez PA-C - 04/01/2022 12:32 PM EDT I called Alfredo on 04/01/2022 at 12:32 PM. Left a voicemail informing him that I have discussed overall plan of care going forward with Dr. Steele. Will send [employer] message detailing plan. Advised to respond to message or call back with questions. documented in this encounterTrumbull Regional Medical Center09-23-2022 Miscellaneous Notes* Telephone Encounter - Gale De León - 03/21/2022 11:38 AM EDT Patient called to let office know that he had his CT done today and needs an appt to go over it. Héctor wants a refill for his [place]. * Telephone Encounter - Macrina Hartmann - 03/21/2022 10:[address] Lumbar report dated 03/21/[address] [facility]. Scanned into [facility] via on-base. documented in this encounterTrumbull Regional Medical Center09-19-2022 Evaluation note* Encounter Date Diagnosis Assessment Notes Treatment Notes Treatment Clinical Notes Feb, Nausea (ICD-10 - R11.0) [employer] Other [id number] Miscellaneous Notes* Telephone Encounter - Greta Nunez RN - 03/13/2022 12:[address] faxed to number provided. Faxed verification received. * Telephone Encounter - Greta Nunez RN - 03/13/2022 9:38 AM EDT Called [facility] and was informed to fax the order to central scheduling at fax number . Once faxed they informed to have the patient call to schedule. documented in this encounterTrumbull Regional Medical Center09-15-2022 Miscellaneous Notes* Telephone Encounter - Laura Beltran PA-C - 03/13/2022 9:52 AM EDT Patient responded in new encounter. documented in this encounterTrumbull Regional Medical Center09-14-2022 Miscellaneous Notes* Telephone Encounter - Greta Nunez RN - 03/12/2022 12:27 PM EDT Noted. * Telephone Encounter - Merced Javed - 03/12/2022 12:11 PM EDT Patient has an appointment today. He had a creatinine level done outside the clinic. The office were he had it done is closed. He said the level is 1.33. documented in this encounterTrumbull Regional Medical Center09-08-2022 Miscellaneous Notes* Telephone Encounter - Greta Nunez [...] days. [employer] Patient last seen [facility] documented in this encounterTrumbull Regional Medical Center09-01-2022 History of Present illness Narrative* Kveyn Cat PA-C - 02/27/2022 11:27 AM EDT [...] me: No additional images reviewed today ASSESSMENT/PLAN (S30.949K) Lumbar pseudoarthrosis (primary encounter diagnosis) Mary Jimenez [...] which included preparing to see the patient, rmmn-xs-bpct patient care, completing clinical documentation, obtaining and/or reviewing separately obtained history, performing a medically appropriate examination, counseling and educating the pat ient/family/caregiver, and ordering medications, tests, or procedures. SIGNATURE: Kevyn Cat PA-C PATIENT NAME: Mary Jimenez DATE: February 27, 2022 TIME: 11:28 AM PAGER: documented in this encounterTrumbull Regional Medical Center08-30-2022 Evaluation note* Encounter Date Diagnosis Assessment Notes [...] setting, an order was sent to the [facility] to have this completed. A prescription was sent to the [facility] for new supplies throughout the year. We [...] in a timely fashion. Do not smoke. [employer] [facility] 08-29-2022 Miscellaneous Notes* Telephone Encounter - Christine Gutierrez PA-C - 02/24/2022 11:58 AM EDT Order placed and faxed to the provided number. * Telephone Encounter - Sandra Mcallister - 02/24/2022 11:04 AM EDT Patient called stating that on 02/11 our office told him he had to redo his creatinine labs. He would like us to fax those orders to [facility] lab at [phone] documented in this encounterTrumbull Regional Medical Center08-29-2022 Miscellaneous Notes* Telephone Encounter - Anni Laurent RN - 02/24/2022 11:57 AM EDT Call placed to pt to set up appointment for wound check for , 02/27/2022. Message left on voicemail with return number. desk officer scheduling also notified. * Telephone Encounter - Anni Laurent RN - 02/24/2022 11:01 AM EDT Message left with Healthcare nurse Vivian to send picture of incision to [facility] phone number provided for review. * Telephone Encounter - Sandra Mcallister - 02/24/2022 9:30 AM EDT Vivian, from [facility] called, stating the patient's incision is still leaking, and there is also a small moveable polyp type bump in the center of the incision that is painful to the touch. Please call Vivian [facility] nurse, at [phone] to advise. documented in this encounterTrumbull Regional Medical Center08-25-2022 Miscellaneous Notes* Telephone Encounter - Anni Laurent RN - 02/20/2022 12:57 PM EDT Scan on 02/20/2022 9:33 AM by External Provider: [facility] * Telephone Encounter - Gale De León - 02/20/2022 10:30 AM EDT Received lab report from [facility], uploaded to chart and forwarded for review. documented in this encounterTrumbull Regional Medical Center08-24-2022 Miscellaneous Notes* Telephone Encounter - Anni Laurent RN - 02/19/2022 9:15 AM EDT Order faxed to [facility] PT with confirmation * Telephone Encounter - Gale De León - 02/18/2022 12:40 PM EDT Patient called asking if he can get an order for outpatient PT be sent to [facility] Physical Therapy to fax [phone] documented in this encounterTrumbull Regional Medical Center08-18-2022 History of Present illness Narrative* Kevyn Cat PA-C - 02/13/2022 9:50 AM EDT Images from the original note were not included. SPINE SURGERY FOLLOW UP SERVICE DATE: 02/13/2022 SURGERY DATE: 12/31/21 Mary Prieto Barbara is seen for 6 week post operative [...] which included preparing to see the patient, uzyp-gt-bgkp patient care, completing clinical documentation, obtaining and/or reviewing separately obtained history, performing a medically appropriate examination, counseling and educating the pat ient/family/caregiver, and ordering medications, tests, or procedures. SIGNATURE: Kevyn Cat PA-C PATIENT NAME: Mary Jimenez DATE: February 13, 2022 TIME: 9:50 AM PAGER: documented in this encounterTrumbull Regional Medical Center08-15-2022 Miscellaneous Notes* Plan of Care - Laura Betlran PA-C - 02/10/2022 3:27 PM EDT Form signed and sent back * Telephone Encounter - Mary Grace Alejo - 02/10/2022 12:22 PM EDT Received form from [facility] needing completion in Epic for review. documented in this encounterTrumbull Regional Medical Center08-15-2022 Miscellaneous Notes* Telephone Encounter - Greta Nunez RN - 02/10/2022 10:35 AM EDT Will forward for review. Scan on 02/07/2022 2:12 PM by External Provider: BMP report * Telephone Encounter - Gale De León - 02/10/2022 10:13 AM EDT Received Lab report from [facility], uploaded to chart and forwarded for review. documented in this encounterTrumbull Regional Medical Center08-11-2022 Evaluation note* Encounter Date Diagnosis Assessment Notes Treatment Notes Treatment Clinical Notes Jan, Essential (primary) hypertension (ICD-10 - I10) [facility] Other [id number] Miscellaneous Notes* Telephone Encounter - Greta Nunez RN - 02/04/2022 12:54 PM EDT Will forward for review. documented in this encounterTrumbull Regional Medical Center08-04-2022 Instructions* Patient Instructions* Laura Beltran PA-C - 01/30/2022 12:00 PM EDT Please change dressing daily to ABD with tape. Do not get incision wet if it is draining. [phone]-office number documented in this encounterTrumbull Regional Medical Center08-04-2022 History of Present illness Narrative* Laura Beltran PA-C - 01/30/2022 11:28 AM EDT [...] which included preparing to see the patient, tdtq-so-grpe patient care, completing clinical documentation, obtaining and/or reviewing separately obtained history, performing a medically appropriate examination, counseling and educating the pat ient/family/caregiver, ordering medications, tests, or procedures, communicating with other HCPs (not separately reported), independently interpreting results (not separately reported) and communicating results to the patient/family/caregiver. SIGNATURE: Laura Beltran PA-C PATIENT NAME: Mary Prieto [facility] DATE: January 30, 2022 TIME: 11:28 AM PAGER: * Tammie Hall MA - 01/30/2022 11:22 AM EDT 10 documented in this encounterTrumbull Regional Medical Center08-02-2022 Evaluation note* Encounter Date Diagnosis Assessment Notes [...] about pain management. Per previous note, Dr. Spencer did not want to see him in the middle of his neurosurgery procedures. I suggested the patient finished with his [facility] surgeon and at one point he will need to link back up with Dr. Spencer. As above, he ask about Dr. Alatorre [...] T4 (weight loss) and sooner as needed. [facility] Other 07-20-2022 Miscellaneous Notes* Allied Health - Krystyna Irby, RT(R) - 01/15/2022 3:20 PM EDT Radiology [...] (Walker, Cane, Wheelchair, Crutches, etc.)? Inpatient: Screened onfloor PATIENT GENDER DATA: Male PATIENT RELEVANT IMPLANT DATA REVIEWED: Not Applicable RADIOLOGY DEPARTMENT: General X-ray: Exam(s) Completed: Spine X-Ray(s): Lumbar AP / LAT PERIPHERAL IV DATA: Not applicable SIGNED BY: Krystyna Irby, RT(R) January 15, 2022 12:59 PM documented in this encounterTrumbull Regional Medical Center07-12-2022 Miscellaneous Notes* Telephone Encounter - LUCIE Hernandez - 01/07/2022 8:45 AM EDT Thank you for your referral for patient, but patient active with [facility]. I will cancel referral for [facility] Home Care. documented in this encounterTrumbull Regional Medical Center07-11-2022 NoteHNO ID: [id number] Author: Taylor Tucker PA-C Service: Neurosurgery Author Type: Physician Weapons And Tactics Instructor Type: Progress Notes Filed: 01/06/2022 12:57 PM [...] out overnight. No obvious signs of hematoma Slade: no slade. Strength 5/5 in bilateral lower extremities Sensation [...] kidney disease) stage 3, GFR 30-59 ml/min ([facility]) (08/18/2021) Obesity (09/12/2021) Sleep apnea (12/17/2021) Anemia (01/04/2022) Medication and Non-Pharmacologic VTE Prophylaxis/Anticoagulants Anticoagulant AND Antiplatelet Medications (From admission, onward) Start Dose Route Frequency Last Action Ordered Stop 01/02/22 2100 heparin 5,000 Units injection 5,000 Units SUBCUTANEOUS EVERY 12 HOURS Given, 01/05 213501/02/22 1227 -- 12/31/21 1800 vte pharmacologic prophylaxis contraindicated (wa,ne) 12/31/21 1800 pneumatic compression stockings (wa,ne) 12/31/21 1800 activity - mobilize patient ([place]) VTE Prophylaxis: VTE prophylaxis appropriate Mary Jimenez is a 61 year old status post revision L4-pelvis instrumented fusion . Recommend increasing activity, physical therapy , occupational therapy and discharge planning. - Continue pain control per MAR - Continue bowel regimen - PT/OT recommending SNF, placement pending - Continue IS, SCDs, SubQ heparin for DVT ppx Discharge pending placement SIGNATURE: Taylor Tucker PA-C PATIENT NAME: Mary Jimenez DATE: January 06, 2022 TIME: 7:36 AM ETX#[id number] [id number] NoteHNO ID: [id number] Author: Lizy Oneill APRN.TECHNICAL APPLICATIONS SCIENTIST Service: Neurosurgery Author Type: Nurse Practitioner Type: [...] changed Drain: output is 70 cc/24 hrs Slade: no slade. Most recent labs and imaging results.. Current [...] kidney disease) stage 3, GFR 30-59 ml/min ([facility]) (08/18/2021) Obesity (09/12/2021) Sleep apnea (12/17/2021) Anemia (01/04/2022) Medication and Non-Pharmacologic VTE Prophylaxis/Anticoagulants Anticoagulant AND Antiplatelet Medications (From admission, onward) Start Dose Route Frequency Last Action Ordered Stop 01/02/22 2100 heparin 5,000 Units injection 5,000 Units SUBCUTANEOUS EVERY 12 HOURS Given, 01/05 0730 01/02/22 1227 -- 12/31/21 1800 vte pharmacologic prophylaxis contraindicated (wa,oh) 12/31/21 1800 pneumatic compression stockings (wa,oh) 12/31/21 1800 activity - mobilize patient ([place] VTE Prophylaxis: VTE prophylaxis appropriate Mary Jimenez is a 61 year old status post revision L4-pelvis instrumented fusion with Dr. Steele on 12/31/21: - recommend increasing activity - PT following, initially recommended [facility], then changed recommendation to SNF - Slade removed POD#2, no issues voiding - continue [...] with more than 50% of the total rlrz-rv-ynyq time of the visit in counseling / coordination of care. SIGNATURE: Lizy Oneill APRN.CNP PATIENT NAME: Mary Jimenez DATE: January 05, 2022 TIME: 11:13 AM ETX#[id number] [id number] NoteHNO ID: [id number] Author: Lizy Oneill APRN.CNP Service: Neurosurgery Author [...] changed Drain: output is 120 cc/12 hrs Slade: no slade. Most recent labs and imaging results.. Current [...] kidney disease) stage 3, GFR 30-59 ml/min ([facility]) (08/18/2021) Obesity (09/12/2021) Sleep apnea (12/17/2021) Anemia (01/04/2022) Medication and Non-Pharmacologic VTE Prophylaxis/Anticoagulants Anticoagulant AND Antiplatelet Medications (From admission, onward) Start Dose Route Frequency Last Action Ordered Stop 01/02/22 2100 heparin 5,000 Units injection 5,000 Units SUBCUTANEOUS EVERY 12 HOURS Given, 01/04 0901/02/22 1227 -- 12/31/21 1800 vte pharmacologic prophylaxis contraindicated ([place]) 12/31/21 1800 pneumatic compression stockings ([place]) 12/31/21 1800 activity - mobilize [place] ([place] VTE Prophylaxis: VTE prophylaxis appropriate Mary Jimenez is a 61 year old status post revision L4-pelvis instrumented fusion with Dr. Steele on 12/31/21: - recommend increasing activity - PT following, initially recommended [facility], then changed recommendation to SNF, patient will likely be discharged home if he is staying 2 more days - Lsade removed POD#2, no issues voiding - continue [...] with more than 50% of the total llhv-sc-ortp time of the visit in counseling / coordination of care. SIGNATURE: Lizy Oneill APRN.CNP PATIENT NAME: Mary Jimenez DATE: January 04, 2022 TIME: 1:59 PM ETX#[id number] [id number] NoteHNO ID: [id number] Author: Elsy Don MD Service: General Internal Medicine Author Type: Physician Type: Progress Notes Filed: 01/04/2022 12:20 PM Note Text: PROGRESS NOTE - INTERNAL MEDICINE PATIENT NAME: Mary Jimenez SERVICE DATE: January 04, 2022 SERVICE TIME: 12:19 PM PCP: Jose Valdovinos DO ADMITTING PHYSICIAN: Loyda Steele MD MD [...] 79 16 98 % (more content not included)...Glenbeigh [id number] NoteHNO ID: [id number] Author: Lizy Oneill APRN.TECHNICAL APPLICATIONS SCIENTIST Service: Neurosurgery Author Type: Nurse Practitioner Type: [...] pain, nausea, vomiting. Voiding without difficulty since Slade removal. OBJECTIVE General: AANDOx 3, NAD, GARCIA well, AFVSS. Incision: dressing CDI. Drain: output is 230 cc/12 hrs Slade: no slade. Most recent labs and imaging results.. Current [...] (HCC) (08/18/2021) Obesity (09/12/2021) Sleep apnea (12/17/2021) Medication and Non-Pharmacologic VTE Prophylaxis/Anticoagulants Anticoagulant AND Antiplatelet Medications (From admission, onward) Start Dose Route Frequency Last Action Ordered Stop 01/02/22 2100 heparin 5,000 Units injection 5,000 Units SUBCUTANEOUS EVERY 12 HOURS Given, 01/03 0817 01/02/22 1227 -- 12/31/21 1800 vte pharmacologic prophylaxis contraindicated ([place]) 12/31/21 1800 pneumatic compression stockings ([place]) 12/31/21 1800 activity - mobilize patient ([place]) VTE Prophylaxis: VTE prophylaxis appropriate Mary Jimenez is a 61 year old status post revision L4-pelvis instrumented fusion with Dr. Steele on 12/31/21: - recommend increasing activity - PT following, initially recommended [facility], today changed recommendation to SNF - Slade removed POD#2 - continue current pain medication [...] with more than 50% of the total svtr-pf-vwmk time of the visit in counseling / coordination of care. SIGNATURE: Lizy Oneill APRN.CNP PATIENT NAME: Mary Jimenez DATE: January 03, 2022 TIME: 2:59 PM ETX#[id number] [id number] NoteHNO ID: [id number] Author: Lizy Oneill APRN.CNP Service: Neurosurgery Author [...] denies weakness, SOB, chest pain, nausea, vomiting. Slade removed this morning, patient voided without difficulty. OBJECTIVE General: AANDOx 3, NAD, GARCIA well, AFVSS. Incision: dressing CDI. Drain: output is 165 cc/12 hrs Slade: no slade. Most recent labs and imaging results.. Current [...] PFIZER) 30 mcg INTRAMUSCULAR ONCE (IMMUNIZATION) - valsartan [...] kidney disease) stage 3, GFR 30-59 ml/min ([facility]) (08/18/2021) Obesity (09/12/2021) Sleep apnea (12/17/2021) Medication and Non-Pharmacologic VTE Prophylaxis/Anticoagulants Anticoagulant AND Antiplatelet Medications (From admission, onward) Start Dose Route Frequency Last Action Ordered Stop 01/02/22 2100 heparin 5,000 Units injection 5,000 Units SUBCUTANEOUS EVERY 12 HOURS Ordered 01/02/22 1227 -- 12/31/21 1800 vte pharmacologic prophylaxis contraindicated (wa,ne) 12/31/21 1800 pneumatic compression stockings (wa,ne) 12/31/21 1800 activity - mobilize patient ([place]) VTE Prophylaxis: VTE prophylaxis appropriate Mary Jimenez is a 61 year old status post revision L4-pelvis instrumented fusion with Dr. Steele on 12/31/21: - recommend increasing activity - seen by PT, recommended Acute Rehab - Dilaudid FOOD PRODUCT INSPECTOR discontinued this morning, pain is well controlled with scheduled Tylenol and PRN Oxy IR - Slade removed this morning, patient is voiding without [...] with more than 50% of the total fyuv-vg-fwxz time of the visit in counseling / coordination of care. SIGNATURE: Lizy Oneill APRN.CNP PATIENT NAME: Mary Jimenez DATE: January 02, 2022 TIME: 12:30 PM ETX#[id number] [id number] NoteHNO ID: [id number] Author: Christine Gutierrez PA-C Service: Neurosurgery Author Type: ? Type: Progress Notes Filed: 01/01/2022 7:42 AM Note Text: NEUROSURGERY POST OP PROGRESS NOTE SERVICE DATE: 01/01/2022 SERVICE TIME: 7:20 AM POST OP DAY: # 1 SUBJECTIVE Patient states that the preoperative symptoms of left lower extremity pain are worse. The patient reports his post-operative pain is decently controlled on FOOD PRODUCT INSPECTOR pump. His right lower extremity feels good today though the pain in the left lower extremity is slightly worse. OBJECTIVE General: AANDOx 3, NAD, AGRCIA well, 5/5 motor strength in bilateral lower extremities except 4+/5 left hip flexion secondary to pain. Incision: dressing CDI. Drain: output is 170cc/24hhrs. Slade: to gravity. Most recent labs and imaging [...] (COLACE) 100 mg ORAL BID - HYDROmorphone FOOD PRODUCT INSPECTOR 0.5 mg/mL in NaCl 0.9% 100 mL INTRAVENOUS CONTINUOUS - cyclobenzaprine 10 mg tab(s) (FLEXERIL) 10 mg ORAL TID PRN ASSESSMENT AND PLAN Patient Active Hospital Problem List: Lumbar pseudoarthrosis (12/31/2021) Intractable chronic migraine without aura (07/18/2014) Primary hypertension (08/07/2021) Cerebrovascular accident (CVA) due to thrombosis ([facility]) (08/07/2021) Status post lumbar spinal fusion (08/17/2021) Mixed hyperlipidemia (08/18/2021) BPH (benign prostatic hyperplasia) (08/18/2021) GERD (gastroesophageal reflux disease) (08/18/2021) CKD (chronic kidney disease) stage 3, GFR 30-59 ml/min ([facility]) (08/18/2021) Obesity (09/12/2021) Sleep apnea (12/17/2021) Obesity, Class II, BMI 35-39.9 (01/01/2022) Medication and Non-Pharmacologic VTE Prophylaxis/Anticoagulants 12/31/21 1800 vte pharmacologic prophylaxis contraindicated (wa,ne) 12/31/21 1800 pneumatic compression stockings (wa,ne) 12/31/21 1800 activity - mobilize patient ([place]) VTE Prophylaxis: VTE prophylaxis appropriate Mary Jimenez is a 61 year old status post Revision L4-pelvis instrumented fusion. Recommend increasing activity, physical therapy , occupational therapy and pain control. Continue FOOD PRODUCT INSPECTOR pump. Pain management consult. PT, OT evaluations. Continue SCDs, IS Continue hemovac to suction. Mobilize patient as tolerated. Anticipate discharge in 2 days. SIGNATURE: Christine Gutierrez PA-C PATIENT NAME: Mary Jimenez DATE: January 01, 2022 TIME: 7:40 AM ETX#[id number] [id number] NoteHNO ID: [id number] Author: Christine Hatfield APRN.CNP Service: Critical Care Author Type: Nurse Practitioner Type: Progress Notes Filed: 01/01/2022 1:55 AM Note Text: [employer] Coverage Note SERVICE DATE: January 01, 2022 SERVICE TIME: 0130 Went to assess patient due to nurse stated patient been tachycardic 110-120's. Patient day 1 post op Revision L4-pelvis fusion Patient does endorses some pain, encouraged patient to use FOOD PRODUCT INSPECTOR pump. Heme vac output 100ml Tachycardia -Stat EKG(sinus tachycardia) -obtain stat CBC -LR 500 ml bolus -Tele I personally spent 15 minutes directly supervising and providing Level 1 Care exclusive of any other billable procedure. SIGNATURE: Christine Hatfield APRN.CNP PATIENT NAME: Mary Prieto Barbara DATE: January 01, 2022 TIME: 129 PAGER: house officerGlenbeigh [id number] Procedure note* Dee Valeljo RN - 12/31/2021 1:53 PM EDT Encounter opened in error. Please disregard. documented in this encounterTrumbull Regional Medical Center07-05-2022 NoteHNO ID: [id number] Author: Mariluz Wick APRN.MUD JACK OPERATOR Service: Anesthesiology Author Type: Nurse Information Systems Project Manager Type: Anesthesia Procedure Notes Filed: 12/31/2021 11:43 AM Note Text: ANESTHESIOLOGY PROCEDURE NOTE Airway General Information Procedure Start Time/Medication Administration: 12/31/2021 11:15 AM Patient location during procedure: OR Timeout Performed Pre-procedure: timeout performed Patient identity confirmed: arm band, care steam distribution supervisor and patient Staffing Anesthesiologist: David Og MD MUD JACK OPERATOR: Mariluz Wick APRN.MUD JACK OPERATOR Performed by: ANDREA Indications and Patient Condition [...] attempts at approach: 1 SIGNATURE: Mariluz Wick APRN.CRNA PATIENT NAME: Mary Jimenez DATE: December 31, 2021 TIME: 11:42 AM CSN: [id number] Miscellaneous Notes* Plan of Care - Laura Beltran PA-C - 12/19/2021 8:59 AM EDT Will close this encounter. There is already an encounter regarding pain med refills * Telephone Encounter - Joanne Jim RN - 12/18/2021 11:55 AM EDT Please see patient Mychart message with attachment. documented in this encounterTrumbull Regional Medical Center06-21-2022 Miscellaneous Notes* Telephone Encounter - Joanne Jim RN - 12/17/2021 2:49 PM EDT Phone encounter also with this same refill request for [place]. Waiting on response from patient to have attachment reviewed by RAIMUNDO. * Telephone Encounter - Mary Grace Alejo - 12/17/2021 1:59 PM EDT Call from patient requesting refill. Pending Prescriptions Disp Refills HYDROCODONE 10 MG-ACETAMINOPHEN 325 MG TABLET 38 tablet 0 Sig: Take 1 tablet by mouth every 8 hours as needed for pain. LILLIAN Class: C-II LAWSON: No Shahbazr Patient last seen 2021 Iris Torres [employer] documented in this encounterTrumbull Regional Medical Center06-21-2022 Instructions* Patient Instructions* Cleo Loza APRN.TECHNICAL APPLICATIONS SCIENTIST - 12/17/2021 11:21 AM EDT PATIENT PREOPERATIVE INSTRUCTIONS Christine Gutierrez PA-C has scheduled you for your procedure at this surgery center: [facility]: [phone] --[address] [place] [address]. On your scheduled day of surgery, please [...] Procedures: - YOU MUST HAVE A RESPONSIBLE GROCERY CLERK STOCKING TAKE YOU HOME. A CARTON FOLDER OR RECEP CANNOT BE MADE A RESPONSIBLE GROCERY CLERK STOCKING. - We recommend that a responsible person [...] Advance Directive, please fax a copy to [phone] or email to for it to be [...] your chart that day. documented in this encounterTrumbull Regional Medical Center06-21-2022 History and physical note * Cleo Loza APRN.CNP - 12/17/2021 11:17 AM EDT HISTORY AND PHYSICAL EXAMINATION SERVICE DATE: 12/17/2021 SERVICE TIME: 11:18 AM PRIMARY CARE PHYSICIAN: Jose Valdovinos DO REASON FOR VISIT: Mary Jimenez is [...] Assessment/Plan Cerebrovascular accident (CVA) due to thrombosis ([facility]) Assessment: hx 2013, daily Plavix Follows up with neurology, no residual symptoms Stable Primary hypertension Assessment: managed with med, stable 12/17/2021 124/78 11/21/2021 129/82 10/09/2021 119/72 Mixed hyperlipidemia Assessment: managed with med, stable Intractable chronic migraine without aura Assessment: managed with med, stable GERD (gastroesophageal reflux disease) Assessment: managed with med, stable CKD (chronic kidney disease) stage 3, GFR 30-59 ml/min ([facility]) Assessment: follows up with PCP, stable Creatinine [...] instructions and voices comprehension and compliance. SIGNATURE: Cleo Loza APRN.CNP PATIENT NAME: Mary Jimenez DATE: December 17, 2021 TIME: 11:17 AM documented in this encounterTrumbull Regional Medical Center06-09-2022 History of Present illness Narrative* Joanne Jim [...] Yes. B/L knee replacements in 2018 and 2004 Transplant History No . Patient will get [...] and post op restrictions. Provided to patient: [facility] Surgery Guide, skin prep supplies, Spine Surgery Pre/post op education packet. Yes. Mailed to patent's home address listed in chart. Reviewed with patient to report to registration desk for surgery ? Yes. Reviewed with the patient that a reimbursement representative will be calling him the day [...] concerns. Joanne Jim RN documented in this encounterTrumbull Regional Medical Center05-25-2022 Evaluation + Plan note Extracted from: Title:ED Note Author:Vianca Nguyen, Stephani Wadsworth te:11/20/21 1. Abdominal pain (R10.9: Un specified [...] Tests Pending * Vancomycin Level Trough 11/23/21 [facility]05-12-2022 Miscellaneous Notes* Telephone Encounter - Macrina Kirkland RN - 11/07/2021 8:00 AM EDT referral placed for pain management * Telephone Encounter - Sandra Godoy Pss - 11/06/2021 3:25 PM EDT Patient called stating he had surgery on Aug 16 and is currently in [facility] SNF dueto not being able to walk. He is about to lose his assisted coverage and will soon be discharged. Patient will be going to pain management and states his Pain Management doctor (Dr Yanelis Zuniga [facility]) needs clearance or a release (the patient wasn't clear on what was needed), so that he can get treatment from Dr Spencer. For questions, call Dr Spencer's office at [phone] documented in this encounterTrumbull Regional Medical Center04-28-2022 Miscellaneous Notes* Telephone Encounter - Bakari Reyes V, MD - 10/24/2021 9:14 AM EDT The patient has finished 6 weeks of IV vancomycin as of today Spoke to the neurosurgeon; will discontinue intravenous vancomycin and pull his PICC line out Started doxycycline 100 mg p.o. twice daily for additional 2 weeks Further follow-up by the neurosurgery clinic. documented in this encounterTrumbull Regional Medical Center04-27-2022 History of Present illness Narrative* Christine Gutierrez [...] continue with Physical and Occupational Therapy at [place]. We will update him regarding antibiotic recommendations. [...] TIME: 8:12 AM PAGER: documented in this encounterTrumbull Regional Medical Center04-26-2022 History of Present illness Narrative* Bakari Reyes V, MD - 10/22/2021 9:19 AM EDT SUBJECTIVE: Mary Jimenez is a 61 year old male who presents for fallow up INTERVAL HISTORY: This is a patient seen by me recently at . 61 year old male patient, PMHx Dyslipidemia, HTN, DEANA, and CVA. He underwent L5/S1 transforaminal lumbar interbody fusion (TLIF) on 08/16 at [facility]. Immediate post op period was smooth without complications. Parag were removed on 09/05 without problems at that time. However, 2 days laterhe started to c/o progressive pain at the surgical site, severe, sharp in quality, radiating to theposterior surface of suresh LE. Then, [facility] nurse noticed that the surgical wound was erythematous with worsening of a previously-noted serous drainage. He otherwise denied feeling of hotness, chills, or rigors. He then presented to [facility] ED where he was to be febrile at 103 F. He was then transferred and admitted to [facility]. Vancomycin IV was started. Lumbar spine [...] was placed and patient was discharged to assisted facility on intravenous vancomycin as he has significant history for penicillin allergy. I have followed his laboratory work although the assisted facility has not been very regularin faxing reports to me The patient states that he still has pain but able to participate in OT and PT at the assisted facility. He has had a virtual visit [...] No follow-ups on file. documented in this encounterTrumbull Regional Medical Center04-13-2022 History of Present illness Narrative* Loyda Steele MD - 10/09/2021 10:40 AM EDT SPINE SURGERY FOLLOW UP SERVICE DATE: 10/09/2021 SURGERY DATE: 08/16/21, 09/12/21 Mary Jimenez is seen for 1 month post operative follow up. S/p L5/S1 TLIF and lumbar wound washout on 08/16/21 and 09/12/21 At [facility] he complained of low back pain and [...] TIME: 8:12 AM PAGER: documented in this encounterTrumbull Regional Medical Center04-06-2022 History of Present illness Narrative* Loyda Steele MD - 10/02/2021 7:54 AM EDT SPINE SURGERY FOLLOW UP SERVICE DATE: 10/02/2021 SURGERY DATE: 08/16/2021, 09/12/2021 S/p L5/S1 TLIF and lumbar wound washout Mary Easleyt is seen for 3 week post operative [...] MD PATIENT NAME: Mary Jimenez DATE: October 02, 2021 TIME: 8:01 AM PAGER: documented in this encounterTrumbull Regional Medical Center03-09-2022 History of Present illness Narrative* Laura Beltran PA-C - 09/04/2021 11:20 AM EST Opened in error documented in this encounterTrumbull Regional Medical Center02-21-2022 NoteHNO ID: [id number] Author: Elsy Don MD Service: General Internal Medicine Author Type: Physician Type: Progress Notes Filed: 08/19/2021 4:42 PM Note Text: PROGRESS NOTE - INTERNAL MEDICINE PATIENT NAME: Mary Jimenez SERVICE DATE: August 19, 2021 SERVICE TIME: 4:41 PM PCP: Jose Valdovinos DO ADMITTING PHYSICIAN: Loyda Steele MD MD [...] , Disp: , Rfl: , [place] [id number] OMEPRAZOLE (PRILOSEC ORAL), Take 40 mg by [...] , Rfl: , 07/29/2021 (more content not included)...[id number] NoteHNO ID: [id number] Author: Kevyn Cat PA-C Service: Neurosurgery Author Type: Physician Weapons And Tactics Instructor Type: Progress Notes Filed: 08/19/2021 9:30 AM [...] Dressing CDI. Drain: serosanguineous output is 20ml/24hrs Slade: no slade Current Facility-Administered Medications Medication Dose Route Frequency [...] ORAL TID PRN ASSESSMENT AND PLAN Mary Jimenez is a 61 year old status post L5/S1 TLIF on 08/16/[address] Steele -Most recent labs and imaging results reviewed -Dressing clean, dry, and intact, incision well approximated with parag. -Drain removed today -Slade catheter removed POD #1, voiding independently -PT [...] 0946 -- 08/18/21 1000 graduated compression stockings ([place]) 08/16/21 1700 vte pharmacologic prophylaxis contraindicated ([place]) 08/16/21 1700 pneumatic compression stockings ([place] 08/16/21 1700 activity - mobilize patient ([place] VTE Prophylaxis: VTE prophylaxis appropriate SIGNATURE: Kevyn Cat PA-C PATIENT NAME: aMry Jimenez DATE: August 19, 2021 TIME: 9:25 [facility]02-20-2022 NoteHNO ID: [id number] Author: Myra Alejandro APRN.CNP Service: Neurosurgery Author Type: Nurse Practitioner [...] Dressing CDI. Drain: serosanguineous output is 100ml/24hrs Slade: no slade Current Facility-Administered Medications Medication Dose Route Frequency [...] 6 H PRN ASSESSMENT AND PLAN Mary Ida Jimenez is a 61 year old status post L5/S1 TLIF on 08/16/[address] Steele -Most recent labs and imaging results reviewed -Strength is 5/5 in all extremities -Dressing clean, dry, and intact -GUADALUPE drain intact, monitor output and likely remove tomorrow -Slade catheter removed POD #1, voiding independently -Recommend increasing activity and PT/OT consult -Incentive spirometry, HERBERT marques, SCDs, start Heparin SC this evening -Post-operative pain control, Dilaudid FOOD PRODUCT INSPECTOR discontinued, start Tylenol scheduled and oxycodone and [...] 0946 -- 08/18/21 1000 graduated compression stockings ([place]) 08/16/21 1700 vte pharmacologic prophylaxis contraindicated ([place]) 08/16/21 1700 pneumatic compression stockings ([place]) 08/16/21 1700 activity - mobilize patient ([place] VTE Prophylaxis: VTE prophylaxis appropriate SIGNATURE: Myra Alejandro APRN.CNP PATIENT NAME: Mary Jimenez DATE: August 18, 2021 TIME: 1:09 [facility]02-20-2022 NoteHNO ID: [id number] Author: Elsy Don MD Service: General Internal Medicine Author Type: Physician Type: Progress Notes Filed: 08/19/2021 4:42 PM Note Text: PROGRESS NOTE - INTERNAL MEDICINE PATIENT NAME: Mary Jimenez SERVICE DATE: August 18, 2021 SERVICE TIME: 12:31 PM PCP: Jose Valdovinos DO ADMITTING PHYSICIAN: Loyda Steele MD MD [...] , Disp: , Rfl: , 08/15/2021 [place] [id number] OMEPRAZOLE (PRILOSEC ORAL), Take 40 mg by [...] Rfl: , 07/29/2021 MAGN (more content not included)...[facility] [id number] NoteHNO ID: [id number] Author: EUGENIE Baker Service: Care Management Author Type: Renewable Energy Project Manager Type: Care Mgt Initial Assessment Filed: 08/17/2021 2:15 PM Note Text: CARE MANAGEMENT: ASSESSMENT AND DISCHARGE PLAN SERVICE DATE: August 17, 2021 SERVICE TIME: 2:10 PM PRIMARY CARE PHYSICIAN: Jose Valdovinos DO ADMISSION STATUS: Inpatient Needs Prior to Discharge: To Be Determined;Accepting Facility;Bed Availability;Discharge Transportation MEDICAL: [employer] MED[employer]VANTAGE O 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 Last discharge within 30 days: No Advance Directive: Current Advance Directive: None Machine Cementer And Folder Attempted to Assist with AD Completion: Yes [...] shower Has the Patient Been in a Senior Care Facility in the Past 30 days?: No SOCIAL: Living Arrangements: Home Lives With: Alone Financial Resources: Disabled Primary Contact: Extended Emergency Contact Information Primary Emergency Contact: BarbaraConnieDyllan Mobile Relation: Father Supportive Patient Contact:: Yes Contact Resources: Family Family Name/Phone: Dyllan Jimenez (Father): [phone] Caregiver AssessmentCaregiver is ready, willing and able [...] Completely I feel financially burdened by my hqy-pe-ycyesc expenses for my prescription medication:: 0 - Disagree Completely Risk Score: 0 Patient is categorized as: Low risk < 2 Are you interested in bedside delivery of your medications? No Is Patient Psychosocially Complex?: No ASSESSMENT AND PLAN: Medical Needs: Medical Needs: Fall risk or frequent falls Psychosocial Needs: Psychosocial Needs: None FREEDOM OF CHOICE EXPLAINED: Brogan of Choice Given: Yes Level of Care Discussed: Senior Care Facility Financial Disclosure Provided: Yes Financial Disclosure Comments: [facility] Providers Provider List: Senior Care Facility Provider list within the patient's requested geographic area shared with the patient/family: Yes within: 25 miles of zip code: [address] Quality and resource use metrics shared with the patient that are relevant to the patient's goals of care and treatment preferences:: Yes Metrics: Potentially Preventable 30-day Post Discharge Readmission Rates POTENTIAL TRANSITION PLANS Home;Senior Care Facility/Intermediate Care Facility;To Be Determined SW met [...] Pt selected referrals be placed to: 1. [facility] and 2. [facility]. SW sent referrals via vocaltap. Pt will need [facility] for discharge transportation. Care Management will continue to follow. SIGNATURE: EUGENIE Baker PATIENT NAME: Mary Jimenez DATE: August 17, 2021 TIME: 2:10 PM PAGER/CONTACT #: [phone] NoteHNO ID: [id number] Author: Annie Coto APRN.CNP Service: Neurosurgery Author Type: Nurse Practitioner Type: Progress Notes Filed: 08/17/2021 12:41 PM Note Text: NEUROSURGERY POST OP PROGRESS NOTE SERVICE DATE: 08/17/2021 SERVICE TIME: 929 POST OP DAY: # 1, L5/S1 TLIF SUBJECTIVE Patient states that the preoperative symptoms of lower back, and leg pain are the same. Pain is mostly incisional. BLE weakness is the same. +flatus. Denies any new numbness, tingling. OBJECTIVE General: AANDOx 3. Incision: dressing CDI. Drain: output is 60 cc/shift. Slade: to gravity. Most recent labs and imaging [...] (COLACE) 100 mg ORAL BID - HYDROmorphone FOOD PRODUCT INSPECTOR 0.5 mg/mL in NaCl 0.9% 100 mL [...] (08/17/2021) Medication and Non-Pharmacologic VTE Prophylaxis/Anticoagulants 08/16/21 1700 vte pharmacologic prophylaxis contraindicated ([place]) 08/16/21 1700 pneumatic compression stockings ([place]) 08/16/21 1700 activity - mobilize patient ([place]) VTE Prophylaxis: VTE prophylaxis appropriate Mary Jimenez is a 61 year old status post L5/S1 TLIF. Recommend increasing activity, physical therapy , occupational therapy, rehab consult, discharge planning and pain control. -PT rec SNF, CM to arrange -pain control adequate with FOOD PRODUCT INSPECTOR, will attempt to transition to oral meds today -dc slade -plan post op XR tomorrow -start heparin tomorrow -bowel regimen Anticipate discharge in 2 days. *Discussed with Dr Steele SIGNATURE: Annie Coto APRN.CNP PATIENT NAME: Mary Jimenez DATE: August 17, 2021 TIME: 12:37 PM ETX#[id number] NoteHNO ID: [id number] Author: MARILOU Hobson Service: Anesthesiology Author Type: Manager English Type: Anesthesia Procedure Notes Filed: 08/16/2021 11:13 [...] August 16, 2021 TIME: 11:12 AM CSN: [id number] History of Past illness Narrative* Problem Noted Date Resolved Date Secondary hypertension 08/07/2021 2 Sacroiliitis 10/17/2015 08/18/2021 Pseudoarthrosis of lumbar spine 12/08/2014 08/18/2021 Opiate dependence 10/20/2014 08/18/2021 Headache(784.0) 07/18/2014 08/18/2021 Chronic daily headache 07/18/2014 2 Chronic back pain 07/18/2014 08/18/2021 Medication overuse headache 07/18/201407/31 documented as of this encounter (statuses as of 09/30/2021) [facility]02-09-2022 History of Past illness Narrative* Problem Noted Date Resolved Date Secondary hypertension 08/07/2021 2 Sacroiliitis 10/17/2015 08/18/2021 Pseudoarthrosis of lumbar spine 12/08/2014 08/18/2021 Opiate dependence 10/20/2014 08/18/2021 Headache(784.0) 07/18/2014 08/18/2021 Chronic daily headache 07/18/2014 2 Chronic back pain 07/18/2014 08/18/2021 Medication overuse headache 07/18/201407/31 documented as of this encounter (statuses as of 10/02/2021) [facility]02-09-2022 History of Past illness Narrative* Problem Noted Date Resolved Date Secondary hypertension 08/07/2021 2 Sacroiliitis 10/17/2015 08/18/2021 Pseudoarthrosis of lumbar spine 12/08/2014 08/18/2021 Opiate dependence 10/20/2014 08/18/2021 Headache(784.0) 07/18/2014 08/18/2021 Chronic daily headache 07/18/2014 2 Chronic back pain 07/18/2014 08/18/2021 Medication overuse headache 07/18/201407/31 documented as of this encounter (statuses as of 10/22/2021) [facility]02-[facility]-2022 History of Past illness Narrative* Problem Noted Date Resolved Date Secondary hypertension 08/07/2021 2 Sacroiliitis 10/17/2015 08/18/2021 Pseudoarthrosis of lumbar spine 12/08/2014 08/18/2021 Opiate dependence 10/20/2014 08/18/2021 Headache(784.0) 07/18/2014 08/18/2021 Chronic daily headache 07/18/2014 2 Chronic back pain 07/18/2014 08/18/2021 Medication overuse headache 07/18/201407/31 documented as of this encounter (statuses as of 10/23/2021) [facility]02-[facility]-2022 History of Past illness Narrative* Problem Noted Date Resolved Date Secondary hypertension 08/07/2021 2 Sacroiliitis 10/17/2015 08/18/2021 Pseudoarthrosis of lumbar spine 12/08/2014 08/18/2021 Opiate dependence 10/20/2014 08/18/2021 Headache(784.0) 07/18/2014 08/18/2021 Chronic daily headache 07/18/2014 2 Chronic back pain 07/18/2014 08/18/2021 Medication overuse headache 07/18/201407/31 documented as of this encounter (statuses as of 10/24/2021) [facility]02[facility]2022 History of Past illness Narrative* Problem Noted Date Resolved Date Secondary hypertension 08/07/2021 2 Sacroiliitis 10/17/2015 08/18/2021 Pseudoarthrosis of lumbar spine 12/08/2014 08/18/2021 Opiate dependence 10/20/2014 08/18/2021 Headache(784.0) 07/18/2014 08/18/2021 Chronic daily headache 07/18/2014 2 Chronic back pain 07/18/2014 08/18/2021 Medication overuse headache 07/18/201407/31 documented as of this encounter (statuses as of 11/04/2021) [facility]20[facility] History of Past illness Narrative* Problem Noted Date Resolved Date Secondary hypertension 08/07/2021 2 Sacroiliitis 10/17/2015 08/18/2021 Pseudoarthrosis of lumbar spine 12/08/2014 08/18/2021 Opiate dependence 10/20/2014 08/18/2021 Headache(784.0) 07/18/2014 08/18/2021 Chronic daily headache 07/18/2014 2 Chronic back pain 07/18/2014 08/18/2021 Medication overuse headache 07/18/201407/31 documented as of this encounter (statuses as of 11/07/2021) [facility] History of Past illness Narrative* Problem Noted Date Resolved Date Secondary hypertension 08/07/2021 2 Sacroiliitis 10/17/2015 08/18/2021 Pseudoarthrosis of lumbar spine 12/08/2014 08/18/2021 Opiate dependence 10/20/2014 08/18/2021 Headache(784.0) 07/18/2014 08/18/2021 Chronic daily headache 07/18/2014 2 Chronic back pain 07/18/2014 08/18/2021 Medication overuse headache 07/18/201407/31 documented as of this encounter (statuses as of 12/05/2021) [facility] History of Past illness Narrative* Problem Noted Date Resolved Date Secondary hypertension 08/07/2021 2 Sacroiliitis 10/17/2015 08/18/2021 Pseudoarthrosis of lumbar spine 12/08/2014 08/18/2021 Opiate dependence 10/20/2014 08/18/2021 Headache(784.0) 07/18/2014 08/18/2021 Chronic daily headache 07/18/2014 2 Chronic back pain 07/18/2014 08/18/2021 Medication overuse headache 07/18/201407/31 documented as of this encounter (statuses as of 12/06/2021) [facility] History of Past illness Narrative* Problem Noted Date Resolved Date Secondary hypertension 08/07/2021 2 Sacroiliitis 10/17/2015 08/18/2021 Pseudoarthrosis of lumbar spine 12/08/2014 08/18/2021 Opiate dependence 10/20/2014 08/18/2021 Headache(784.0) 07/18/2014 08/18/2021 Chronic daily headache 07/18/2014 2 Chronic back pain 07/18/2014 08/18/2021 Medication overuse headache 07/18/201407/31 documented as of this encounter (statuses as of 12/17/2021) [facility] History of Past illness Narrative* Problem Noted Date Resolved Date Secondary hypertension 08/07/2021 2 Sacroiliitis 10/17/2015 08/18/2021 Pseudoarthrosis of lumbar spine 12/08/2014 08/18/2021 Opiate dependence 10/20/2014 08/18/2021 Headache(784.0) 07/18/2014 08/18/2021 Chronic daily headache 07/18/2014 2 Chronic back pain 07/18/2014 08/18/2021 Medication overuse headache 07/18/201407/31 documented as of this encounter (statuses as of 12/19/2021) [facility] History of Past illness Narrative* Problem Noted Date Resolved Date Secondary hypertension 08/07/2021 2 Sacroiliitis 10/17/2015 08/18/2021 Pseudoarthrosis of lumbar spine 12/08/2014 08/18/2021 Opiate dependence 10/20/2014 08/18/2021 Headache(784.0) 07/18/2014 08/18/2021 Chronic daily headache 07/18/2014 2 Chronic back pain 07/18/2014 08/18/2021 Medication overuse headache 07/18/201407/31 documented as of this encounter (statuses as of 12/31/2021) [facility] History of Past illness Narrative* Problem Noted Date Resolved Date Secondary hypertension 08/07/2021 2 Sacroiliitis 10/17/2015 08/18/2021 Pseudoarthrosis of lumbar spine 12/08/2014 08/18/2021 Opiate dependence 10/20/2014 08/18/2021 Headache(784.0) 07/18/2014 08/18/2021 Chronic daily headache 07/18/2014 2 Chronic back pain 07/18/2014 08/18/2021 Medication overuse headache 07/18/201407/31 documented as of this encounter (statuses as of 12/31/2021) [facility] History of Past illness Narrative* Problem Noted Date Resolved Date Secondary hypertension 08/07/2021 2 Sacroiliitis 10/17/2015 08/18/2021 Pseudoarthrosis of lumbar spine 12/08/2014 08/18/2021 Opiate dependence 10/20/2014 08/18/2021 Headache(784.0) 07/18/2014 08/18/2021 Chronic daily headache 07/18/2014 2 Chronic back pain 07/18/2014 08/18/2021 Medication overuse headache 07/18/201407/31 documented as of this encounter (statuses as of 01/07/2022) [facility] History of Past illness Narrative* Problem Noted Date Resolved Date Secondary hypertension 08/07/2021 2 Sacroiliitis 10/17/2015 08/18/2021 Pseudoarthrosis of lumbar spine 12/08/2014 08/18/2021 Opiate dependence 10/20/2014 08/18/2021 Headache(784.0) 07/18/2014 08/18/2021 Chronic daily headache 07/18/2014 2 Chronic back pain 07/18/2014 08/18/2021 Medication overuse headache 07/18/201407/31 documented as of this encounter (statuses as of 01/16/2022) [facility] History of Past illness Narrative* Problem Noted Date Resolved Date Secondary hypertension 08/07/2021 2 Sacroiliitis 10/17/2015 08/18/2021 Pseudoarthrosis of lumbar spine 12/08/2014 08/18/2021 Opiate dependence 10/20/2014 08/18/2021 Headache(784.0) 07/18/2014 08/18/2021 Chronic daily headache 07/18/2014 2 Chronic back pain 07/18/2014 08/18/2021 Medication overuse headache 07/18/201407/31 documented as of this encounter (statuses as of 01/31/2022) [facility] History of Past illness Narrative* Problem Noted Date Resolved Date Secondary hypertension 08/07/2021 2 Sacroiliitis 10/17/2015 08/18/2021 Pseudoarthrosis of lumbar spine 12/08/2014 08/18/2021 Opiate dependence 10/20/2014 08/18/2021 Headache(784.0) 07/18/2014 08/18/2021 Chronic daily headache 07/18/2014 2 Chronic back pain 07/18/2014 08/18/2021 Medication overuse headache 07/18/201407/31 documented as of this encounter (statuses as of 02/04/2022) [facility] History of Past illness Narrative* Problem Noted Date Resolved Date Secondary hypertension 08/07/2021 2 Sacroiliitis 10/17/2015 08/18/2021 Pseudoarthrosis of lumbar spine 12/08/2014 08/18/2021 Opiate dependence 10/20/2014 08/18/2021 Headache(784.0) 07/18/2014 08/18/2021 Chronic daily headache 07/18/2014 2 Chronic back pain 07/18/2014 08/18/2021 Medication overuse headache 07/18/201407/31 documented as of this encounter (statuses as of 02/10/2022) [facility] History of Past illness Narrative* Problem Noted Date Resolved Date Secondary hypertension 08/07/2021 2 Sacroiliitis 10/17/2015 08/18/2021 Pseudoarthrosis of lumbar spine 12/08/2014 08/18/2021 Opiate dependence 10/20/2014 08/18/2021 Headache(784.0) 07/18/2014 08/18/2021 Chronic daily headache 07/18/2014 2 Chronic back pain 07/18/2014 08/18/2021 Medication overuse headache 07/18/201407/31 documented as of this encounter (statuses as of 02/10/2022) [facility] History of Past illness Narrative* Problem Noted Date Resolved Date Secondary hypertension 08/07/2021 2 Sacroiliitis 10/17/2015 08/18/2021 Pseudoarthrosis of lumbar spine 12/08/2014 08/18/2021 Opiate dependence 10/20/2014 08/18/2021 Headache(784.0) 07/18/2014 08/18/2021 Chronic daily headache 07/18/2014 2 Chronic back pain 07/18/2014 08/18/2021 Medication overuse headache 07/18/201407/31 documented as of this encounter (statuses as of 02/13/2022) [facility] History of Past illness Narrative* Problem Noted Date Resolved Date Secondary hypertension 08/07/2021 2 Sacroiliitis 10/17/2015 08/18/2021 Pseudoarthrosis of lumbar spine 12/08/2014 08/18/2021 Opiate dependence 10/20/2014 08/18/2021 Headache(784.0) 07/18/2014 08/18/2021 Chronic daily headache 07/18/2014 2 Chronic back pain 07/18/2014 08/18/2021 Medication overuse headache 07/18/201407/31 documented as of this encounter (statuses as of 02/19/2022) [facility] History of Past illness Narrative* Problem Noted Date Resolved Date Secondary hypertension 08/07/2021 2 Sacroiliitis 10/17/2015 08/18/2021 Pseudoarthrosis of lumbar spine 12/08/2014 08/18/2021 Opiate dependence 10/20/2014 08/18/2021 Headache(784.0) 07/18/2014 08/18/2021 Chronic daily headache 07/18/2014 2 Chronic back pain 07/18/2014 08/18/2021 Medication overuse headache 07/18/201407/31 documented as of this encounter (statuses as of 02/20/2022) [facility] History of Past illness Narrative* Problem Noted Date Resolved Date Secondary hypertension 08/07/2021 2 Sacroiliitis 10/17/2015 08/18/2021 Pseudoarthrosis of lumbar spine 12/08/2014 08/18/2021 Opiate dependence 10/20/2014 08/18/2021 Headache(784.0) 07/18/2014 08/18/2021 Chronic daily headache 07/18/2014 2 Chronic back pain 07/18/2014 08/18/2021 Medication overuse headache 07/18/201407/31 documented as of this encounter (statuses as of 02/21/2022) [facility] History of Past illness Narrative* Problem Noted Date Resolved Date Secondary hypertension 08/07/2021 2 Sacroiliitis 10/17/2015 08/18/2021 Pseudoarthrosis of lumbar spine 12/08/2014 08/18/2021 Opiate dependence 10/20/2014 08/18/2021 Headache(784.0) 07/18/2014 08/18/2021 Chronic daily headache 07/18/2014 2 Chronic back pain 07/18/2014 08/18/2021 Medication overuse headache 07/18/201407/31 documented as of this encounter (statuses as of 02/24/2022) [facility] History of Past illness Narrative* Problem Noted Date Resolved Date Secondary hypertension 08/07/2021 2 Sacroiliitis 10/17/2015 08/18/2021 Pseudoarthrosis of lumbar spine 12/08/2014 08/18/2021 Opiate dependence 10/20/2014 08/18/2021 Headache(784.0) 07/18/2014 08/18/2021 Chronic daily headache 07/18/2014 2 Chronic back pain 07/18/2014 08/18/2021 Medication overuse headache 07/18/201407/31 documented as of this encounter (statuses as of 02/27/2022) [facility] History of Past illness Narrative* Problem Noted Date Resolved Date Secondary hypertension 08/07/2021 2 Sacroiliitis 10/17/2015 08/18/2021 Pseudoarthrosis of lumbar spine 12/08/2014 08/18/2021 Opiate dependence 10/20/2014 08/18/2021 Headache(784.0) 07/18/2014 08/18/2021 Chronic daily headache 07/18/2014 2 Chronic back pain 07/18/2014 08/18/2021 Medication overuse headache 07/18/201407/31 documented as of this encounter (statuses as of 03/06/2022) [facility] History of Past illness Narrative* Problem Noted Date Resolved Date Secondary hypertension 08/07/2021 2 Sacroiliitis 10/17/2015 08/18/2021 Pseudoarthrosis of lumbar spine 12/08/2014 08/18/2021 Opiate dependence 10/20/2014 08/18/2021 Headache(784.0) 07/18/2014 08/18/2021 Chronic daily headache 07/18/2014 2 Chronic back pain 07/18/2014 08/18/2021 Medication overuse headache 07/18/201407/31 documented as of this encounter (statuses as of 03/07/2022) [facility] History of Past illness Narrative* Problem Noted Date Resolved Date Secondary hypertension 08/07/2021 2 Sacroiliitis 10/17/2015 08/18/2021 Pseudoarthrosis of lumbar spine 12/08/2014 08/18/2021 Opiate dependence 10/20/2014 08/18/2021 Headache(784.0) 07/18/2014 08/18/2021 Chronic daily headache 07/18/2014 2 Chronic back pain 07/18/2014 08/18/2021 Medication overuse headache 07/18/201407/31 documented as of this encounter (statuses as of 03/12/2022) [facility] History of Past illness Narrative* Problem Noted Date Resolved Date Secondary hypertension 08/07/2021 2 Sacroiliitis 10/17/2015 08/18/2021 Pseudoarthrosis of lumbar spine 12/08/2014 08/18/2021 Opiate dependence 10/20/2014 08/18/2021 Headache(784.0) 07/18/2014 08/18/2021 Chronic daily headache 07/18/2014 2 Chronic back pain 07/18/2014 08/18/2021 Medication overuse headache 07/18/201407/31 documented as of this encounter (statuses as of 03/13/2022) [facility] History of Past illness Narrative* Problem Noted Date Resolved Date Secondary hypertension 08/07/2021 2 Sacroiliitis 10/17/2015 08/18/2021 Pseudoarthrosis of lumbar spine 12/08/2014 08/18/2021 Opiate dependence 10/20/2014 08/18/2021 Headache(784.0) 07/18/2014 08/18/2021 Chronic daily headache 07/18/2014 2 Chronic back pain 07/18/2014 08/18/2021 Medication overuse headache 07/18/201407/31 documented as of this encounter (statuses as of 03/13/2022) [facility] History of Past illness Narrative* Problem Noted Date Resolved Date Secondary hypertension 08/07/2021 2 Sacroiliitis 10/17/2015 08/18/2021 Pseudoarthrosis of lumbar spine 12/08/2014 08/18/2021 Opiate dependence 10/20/2014 08/18/2021 Headache(784.0) 07/18/2014 08/18/2021 Chronic daily headache 07/18/2014 2 Chronic back pain 07/18/2014 08/18/2021 Medication overuse headache 07/18/201407/31 documented as of this encounter (statuses as of 03/21/2022) [facility] History of Past illness Narrative* Problem Noted Date Resolved Date Secondary hypertension 08/07/2021 2 Sacroiliitis 10/17/2015 08/18/2021 Pseudoarthrosis of lumbar spine 12/08/2014 08/18/2021 Opiate dependence 10/20/2014 08/18/2021 Headache(784.0) 07/18/2014 08/18/2021 Chronic daily headache 07/18/2014 2 Chronic back pain 07/18/2014 08/18/2021 Medication overuse headache 07/18/201407/31 documented as of this encounter (statuses as of 04/01/2022) [facility] History of Past illness Narrative* Problem Noted Date Resolved Date Secondary hypertension 08/07/2021 2 Sacroiliitis 10/17/2015 08/18/2021 Pseudoarthrosis of lumbar spine 12/08/2014 08/18/2021 Opiate dependence 10/20/2014 08/18/2021 Headache(784.0) 07/18/2014 08/18/2021 Chronic daily headache 07/18/2014 2 Chronic back pain 07/18/2014 08/18/2021 Medication overuse headache 07/18/201407/31 documented as of this encounter (statuses as of 04/01/2022) [facility]2022 History of Past illness Narrative* Problem Noted Date Resolved Date Secondary hypertension 08/07/2021 2 Sacroiliitis 10/17/2015 08/18/2021 Pseudoarthrosis of lumbar spine 12/08/2014 08/18/2021 Opiate dependence 10/20/2014 08/18/2021 Headache(784.0) 07/18/2014 08/18/2021 Chronic daily headache 07/18/2014 2 Chronic back pain 07/18/2014 08/18/2021 Medication overuse headache 07/18/201407/31 documented as of this encounter (statuses as of 04/09/2022) [facility] History of Past illness Narrative* Problem Noted Date Resolved Date Secondary hypertension 08/07/2021 2 Sacroiliitis 10/17/2015 08/18/2021 Pseudoarthrosis of lumbar spine 12/08/2014 08/18/2021 Opiate dependence 10/20/2014 08/18/2021 Headache(784.0) 07/18/2014 08/18/2021 Chronic daily headache 07/18/2014 2 Chronic back pain 07/18/2014 08/18/2021 Medication overuse headache 07/18/201407/31 documented as of this encounter (statuses as of 04/14/2022) [facility] History of Past illness Narrative* Problem Noted Date Resolved Date Secondary hypertension 08/07/2021 2 Sacroiliitis 10/17/2015 08/18/2021 Pseudoarthrosis of lumbar spine 12/08/2014 08/18/2021 Opiate dependence 10/20/2014 08/18/2021 Headache(784.0) 07/18/2014 08/18/2021 Chronic daily headache 07/18/2014 2 Chronic back pain 07/18/2014 08/18/2021 Medication overuse headache 07/18/201407/31 documented as of this encounter (statuses as of 04/16/2022) [facility] History of Past illness Narrative* Problem Noted Date Resolved Date Secondary hypertension 08/07/2021 2 Sacroiliitis 10/17/2015 08/18/2021 Pseudoarthrosis of lumbar spine 12/08/2014 08/18/2021 Opiate dependence 10/20/2014 08/18/2021 Headache(784.0) 07/18/2014 08/18/2021 Chronic daily headache 07/18/2014 2 Chronic back pain 07/18/2014 08/18/2021 Medication overuse headache 07/18/201407/31 documented as of this encounter (statuses as of 04/17/2022) [facility] History of Past illness Narrative* Problem Noted Date Resolved Date Secondary hypertension 08/07/2021 2 Sacroiliitis 10/17/2015 08/18/2021 Pseudoarthrosis of lumbar spine 12/08/2014 08/18/2021 Opiate dependence 10/20/2014 08/18/2021 Headache(784.0) 07/18/2014 08/18/2021 Chronic daily headache 07/18/2014 2 Chronic back pain 07/18/2014 08/18/2021 Medication overuse headache 07/18/201407/31 documented as of this encounter (statuses as of 04/24/2022) [facility] History of Past illness Narrative* Problem Noted Date Resolved Date Secondary hypertension 08/07/2021 2 Sacroiliitis 10/17/2015 08/18/2021 Pseudoarthrosis of lumbar spine 12/08/2014 08/18/2021 Opiate dependence 10/20/2014 08/18/2021 Headache(784.0) 07/18/2014 08/18/2021 Chronic daily headache 07/18/2014 2 Chronic back pain 07/18/2014 08/18/2021 Medication overuse headache 07/18/201407/31 documented as of this encounter (statuses as of 04/25/2022) [facility] History of Past illness Narrative* Problem Noted Date Resolved Date Secondary hypertension 08/07/2021 2 Sacroiliitis 10/17/2015 08/18/2021 Pseudoarthrosis of lumbar spine 12/08/2014 08/18/2021 Opiate dependence 10/20/2014 08/18/2021 Headache(784.0) 07/18/2014 08/18/2021 Chronic daily headache 07/18/2014 2 Chronic back pain 07/18/2014 08/18/2021 Medication overuse headache 07/18/201407/31 documented as of this encounter (statuses as of 04/29/2022) [facility] History of Past illness Narrative* Problem Noted Date Resolved Date Secondary hypertension 08/07/2021 2 Sacroiliitis 10/17/2015 08/18/2021 Pseudoarthrosis of lumbar spine 12/08/2014 08/18/2021 Opiate dependence 10/20/2014 08/18/2021 Headache(784.0) 07/18/2014 08/18/2021 Chronic daily headache 07/18/2014 2 Chronic back pain 07/18/2014 08/18/2021 Medication overuse headache 07/18/201407/31 documented as of this encounter (statuses as of 05/09/2022) [address]09-2022 History of Past illness Narrative* Problem Noted Date Resolved Date Secondary hypertension 08/07/2021 2 Sacroiliitis 10/17/2015 08/18/2021 Pseudoarthrosis of lumbar spine 12/08/2014 08/18/2021 Opiate dependence 10/20/2014 08/18/2021 Headache(784.0) 07/18/2014 08/18/2021 Chronic daily headache 07/18/2014 2 Chronic back pain 07/18/2014 08/18/2021 Medication overuse headache 07/18/201407/31 documented as of this encounter (statuses as of 06/12/2022) [facility] History of Past illness Narrative* Problem Noted Date Resolved Date Secondary hypertension 08/07/2021 2 Sacroiliitis 10/17/2015 08/18/2021 Pseudoarthrosis of lumbar spine 12/08/2014 08/18/2021 Opiate dependence 10/20/2014 08/18/2021 Headache(784.0) 07/18/2014 08/18/2021 Chronic daily headache 07/18/2014 2 Chronic back pain 07/18/2014 08/18/2021 Medication overuse headache 07/18/201407/31 documented as of this encounter (statuses as of 07/04/2022) [facility] History of Past illness Narrative* Problem Noted Date Resolved Date Secondary hypertension 08/07/2021 2 Sacroiliitis 10/17/2015 08/18/2021 Pseudoarthrosis of lumbar spine 12/08/2014 08/18/2021 Opiate dependence 10/20/2014 08/18/2021 Headache(784.0) 07/18/2014 08/18/2021 Chronic daily headache 07/18/2014 2 Chronic back pain 07/18/2014 08/18/2021 Medication overuse headache 07/18/201407/31 documented as of this encounter (statuses as of 07/04/2022) [facility] History of Past illness Narrative* Problem Noted Date Diagnosed Date Resolved Date Secondary hypertension 08/07/202108/07 Sacroiliitis 10/17/2015 08/18/2021 Pseudoarthrosis of lumbar spine 12/08/2014 08/18/2021 Opiate dependence 10/20/2014 08/18/2021 Headache(784.0) 07/18/2014 08/18/2021 Chronic daily headache 07/18/201408/18 Chronic back pain 07/18/2014 08/18/2021 Medication overuse headache 07/18/2014 08/18/2021 documented as of this encounter (statuses as of 10/07/2023) [facility]01-25-2022 Evaluation note* Encounter Date Diagnosis Assessment Notes [...] the future. Jun, Adverse effect of other dlhx-emzpnz-yoto drugs, initial encounter (ICD-10 - T48.5X5A) See dictation above Jun, Essential (primary) hypertension (ICD-10 - I10) Stable on current meds Jun, P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) Continue with Dr. Spencer of pain management and [facility] surgery with [...] did offer to refer him to a tertiary formerly [facility] for bariatric consult. At this point [...] lab panel because of his medical complexity. [facility] 01-13-2022 Evaluation note* Encounter Date Diagnosis Assessment Notes Treatment Notes Treatment Clinical Notes Jun, Acute non-recurrent sinusitis, unspecified location (ICD-10 - J01.90) [facility] 12-30-2021 Evaluation note* Encounter Date Diagnosis [...] Trimethoprim material was published RTO as needed [facility] 11-12-2021 Evaluation note* Encounter Date Diagnosis Assessment Notes Treatment Notes Treatment Clinical Notes Apr, Chronic pain (ICD-10 - G89.29) [facility] 11-11-2021 Evaluation note* Encounter Date Diagnosis [...] lower extremity (ICD-10 - M54.16) Continue with [facility] back surgeon and pending follow-up visit Apr, Abdominal mass, right lower quadrant (ICD-10 - R19.03) I think this is most likely asymmetric significant fat pannus right lower abdomen. We consider lipoma. He did have CT scan last May. We will await Dr. Arango input. Apr, Other RTO pending above and sooner as needed Please send today's EMR note to Dr. Arango. [facility] Other 08-19-2021 History of Present illness Narrative* Parth Nunes MRI Tech - 02/14/2021 12:00 PM EDT Radiology Service Progress Note PATIENT NAME: Mary Jimenez DATE OF SERVICE: February 14, 2021 TIME: 11:44 AM PATIENT IDENTITY VERIFICATION COMPLETED USING TWO (2) IDENTIFIERS: Name and Date of confirmedby patient verbally. FALL SCREENING: Has the patient had 2 falls in the last year or 1 fall with injury or currently using an Ambulatory Assistive Device (Walker, Cane, Wheelchair, Crutches, etc.)? No PATIENT GENDER DATA: Male PATIENT RELEVANT IMPLANT DATA REVIEWED: Yes RADIOLOGY DEPARTMENT: MR; Exam(s) Completed: Spine: Lumbar spine PERIPHERAL IV DATA: Not applicable SIGNED BY: JEFFERY Joyner February 14, 2021 11:44 AM [facility] History of Present illness Narrative* Patient is [...] 4. Continue aggressive approach risk factor modification [facility] [address] DO Work Phone: Consult note Author Ortega Haskins [facility] May 04, 2022 1:26pm Note Date/Time May 04, 2022 9 :56am [facility] [address] [place] [address] Neurology Consult Note Signed Patient: Mary Jimenez MR#: [id number] : 1960 Acct:[id number] Age/Sex: 61 / M Adm Date: 2 Loc: 4 Room: [address] [place] [address] Type: ADM IN Attending Dr: Cathy Zavala MD Copies to: DO Jose Cao DO Mazhar Rahman, MD~ HPI Consult Date: 05/04/22 Icer Machine Operator: Ortega Haskins DO [facility] Vaccinated for COVID-19?: Yes Medical History (Updated 05/03/22 @ 20:36 by Jessica Borrego RN) CVA (cerebral vascular accident) Hypertension Morbid [...] mg PO DAILY 03/30/17 [History Confirmed 05/03/22] vhfzlfgg-zxsgeyuo-rdacy acid 400 mcg-vit K 20 mcg-lycop 300 [...] Eagle Prince M.D.05/03/2022 3:33 PM Dictation Location: [place] [address] Chest X-Ray 05/03/22 14:44 IMPRESSION: No acute process. Impression dictated by: Eagle Prince M.D.05/03/2022 3:05 PM Dictation Location: [place] [address] Assessment/Plan (1) Atypical migraine: Assessment/Problem Details: HPI: [...] <Electronically signed by Ortega Haskins DO> 05/04/22 1327 [facility] Work Phone: Consult note Author Xavi Smith [facility] May 07, 2022 12:29pm Note Date/Time May 06, 2022 2 :10pm [facility] [address] [place] [address] Pain Management Consult Note Signed Patient: Mary Jimenez MR#: [id number] : 1960 Acct:[id number] Age/Sex: 61 / M Adm Date: 2 Loc: 4 Room: [id number] Type: DIS INOo Attending Dr: Cathy Zavala MD Copies to: DO Cathy Bhatia MD Sherif S Zaky, MD~ HPI Data of Consult Consult date: 05/06/22 Primary Care Provider: Jose Valdovinos DO Consult Narrative Reason for consult: Low [...] back surgeries. Patient used to see Dr Spencer for pain management and currently sees a Pain management doctor in [place]. Pain management was consultedto evaluate for interventional [...] mg PO DAILY 03/30/17 [History Confirmed 05/03/22] ymzrjmms-kyqqbyuk-fuzvv acid 400 mcg-vit K 20 mcg-lycop 300 [...] signed by Xavi Smith MD> 05/07/22 1229 [facility] Work Phone: Discharge summary Author Cathy Zavala [facility] May 06, 2022 3:14pm Note Date/Time May 06, 2022 3 :05pm [facility] [address] [place] [address] Discharge Summary Signed Patient: Mary Jimenez MR#: [id number] : 1960 Acct:[id number] Age/Sex: 61 / M Adm Date: 2 Loc: 4N Room: [address] [place] [address]: Cathy Zavala MD Copies to: DO Cathy Bhatia MD~ Providers Date of Discharge: 05/06/22 Discharging Provider: Cathy Zavala Primary Care Provider: Jose Valdovinos Consults: 05/03/22 18:54 Consult to Neurology Routine Consult to Occupational Therapy Routine Consult to Physical Therapy Routine 05/06/22 09:41 Consult to Pain Management Routine 05/06/22 09:59 RICHAR [[facility] Transition of Care Referral] Routine Discharge Diagnosis [...] he was scheduled to get MRI at [facility]. Patient not able to get MRI [...] fluticasone propionate [Flonase Allergy Relief] 50 mcg/actuation [place],Suspension 2 spray INTRANASAL DAILY duloxetine [Cymbalta] 60 [...] 3:40 pm (With Melia EUBANKS and Dr. Rodriges) [facility] Transitions of Care [Outside] - 05/07/22 9:45 am (You have been referred to the [facility] ([facility]) for a post discharge education visit because you have one or more conditions that have been associated with a moderate to high risk of complications that may increase the likelihood that you will be readmitted to the hospital again in the near future. .? Address:? [address] [place] [address], [facility] F.? NOTE:? PLEASE BRING ALL OF YOUR MEDICATION BOTTLES WITH YOU TO THE APPOINTMENT WELL YOUR DISCHARGE INSTRUCTIONS.) Jose Valdovinos DO [Primary Care Provider] - 05/27/22 1:15 [...] then.) Documented By: Cathy Zavala MD 05/06/22 1504 Signed By: <Electronically signed by Cathy Zavala MD> 05/06/22 1519 [facility] Work Phone: Evaluation + Plan note Future Appointments Appointment Date:09/25/2021 07:50:00 AM Scheduled Provider:Eagle MCKEE MD Location:Extended Care Appointment Type:[facility] Evaluation + Plan note Future Appointments Appointment Date:05/28/2022 08:00:00 AM Scheduled Provider: Location:.MRI Appointment Type:MRI Spine (FT) Appointment Date:05/28/2022 09:00:00 AM Scheduled Provider: Location:.MRI Appointment Type:MRI Spine (FT) Future Scheduled Tests Radiology* MRI Spine Cervical w/o Contrast 05/28/22 * [facility] Appointment Date:05/28/2022 08:00:00 AM Scheduled Provider: Location:.MRI Appointment Type:MRI Spine (FT) Appointment Date:05/28/2022 09:00:00 AM Scheduled Provider: Location:.MRI Appointment Type:MRI Spine (FT) Future Scheduled Tests Radiology* MRI Spine Cervical w/ + w/o Contrast 05/28/22 * MRI Spine Cervical w/o Contrast 05/28/22 * MRI Spine Lumbar w/ + w/o Contrast 05/28/22 [facility] note* Diagnosis Spondylolisthesis of lumbar region- Primary Acquired spondylolisthesis documented in this encounter [facility] note* Diagnosis S/P lumbar fusion- Primary Arthrodesis status documented in this encounter [facility] note* Diagnosis Postoperative infection, unspecified type, subsequent encounter- Primary S/P lumbar fusion Arthrodesis status documented in this encounter [facility] note* Diagnosis S/P lumbar fusion- Primary Arthrodesis status documented in this encounter [facility] note* Diagnosis Spondylolisthesis of lumbar region- Primary Acquired spondylolisthesis documented in this encounter [facility] note* Diagnosis Chronic bilateral low back pain without sciatica- Primary documented in this encounter [facility] note* Diagnosis Spondylolisthesis of lumbar region- Primary Acquired spondylolisthesis Pre-op testing Preoperative examination, unspecified Spondylolisthesis of lumbar region Acquired spondylolisthesis documented in this encounter [facility] note* Diagnosis BMI 37.0-37.9, adult- Primary [...] region Acquired spondylolisthesis documented in this encounter [facility] note* Diagnosis Pre-op testing- Primary Preoperative examination, unspecified S/P lumbar fusion Arthrodesis status Spondylolisthesis of lumbar region Acquired spondylolisthesis documented in this encounter [facility] note* Diagnosis Spondylolisthesis of lumbar region Acquired spondylolisthesis Lumbar radiculopathy Thoracic or lumbosacral neuritis or radiculitis, unspecified documented in this encounter [facility] note* Diagnosis Radiculopathy, lumbar region Thoracic or lumbosacral neuritis or radiculitis, unspecified documented in this encounter [facility] noteNo [email or web address] Other Evaluation note* Diagnosis Alteration in skin integrity related to surgical incision- Primary Wound healing, delayed Open wound(s) (multiple) of unspecified site(s), complicated Keloid Keloid scar [facility] Diagnosis Medication monitoring encounter- Primary Encounter for therapeutic drug monitoring [facility]* Diagnosis Spondylolisthesis, lumbar region- Primary [facility] Diagnosis Radiculopathy, lumbar region Thoracic or lumbosacral neuritis or radiculitis, unspecified [facility]* Diagnosis Spondylolisthesis of lumbar region- Primary Acquired spondylolisthesis [facility] Diagnosis Lumbar radiculopathy- Primary Thoracic or lumbosacral neuritis or radiculitis, unspecified [facility]* Diagnosis Lumbar pseudoarthrosis- Primary Nonunion of fracture documented in this encounter [facility] noteNo assessment information [facility] Work Phone: Evaluation note* Diagnosis Acute bilateral low back pain with left-sided sciatica- Primary Lumbar pseudoarthrosis Nonunion of fracture [facility] this [facility]* Diagnosis Lumbar pseudoarthrosis Nonunion of fracture [facility]* Diagnosis Lumbar pseudoarthrosis Nonunion of fracture [facility]* Diagnosis Spinal stenosis of lumbar region with neurogenic claudication- Primary Spinal stenosis, lumbar region, with neurogenic claudication documented in this encounter [facility]* Diagnosis Spinal stenosis of lumbar region with neurogenic claudication- Primary Spinal stenosis, lumbar region, with neurogenic claudication documented [facility] this encounter [facility]* Diagnosis Lumbar radiculopathy- Primary Thoracic or lumbosacral neuritis or radiculitis, unspecified [facility]* Diagnosis Lumbar radiculopathy- Primary Thoracic or lumbosacral neuritis or radiculitis, unspecified documented [facility] this encounter [facility]* Diagnosis Putti's syndrome- Primary Thoracic or lumbosacral neuritis or radiculitis, unspecified [facility]* Diagnosis Lumbar pseudoarthrosis- Primary Nonunion of fracture [facility] this [facility]* Diagnosis Onset Date Resolution Status Chronic kidney disease, stage 3 acute Dizziness acute Elevated blood pressure read ing with diagnosis of hypertension acute Obstructive sleep apnea acut e Repeated falls acute Slurred speech acute [facility] Work Phone: Evaluation note* Diagnosis Onset Date Resolution Status Atypical migraine acute Chronic kidney disease, stage 3 acute Dizziness acute Elevated blood pressure read ing with diagnosis of hypertension acute Lumbar radicular pain acute Obstructive sleep apnea acut e Postlaminectomy syndrome acu te Repeated falls acute Sepsis acute Slurred speech [facility] Work Phone: Evaluation note* Diagnosis Lumbar radiculopathy- Primary Thoracic or lumbosacral neuritis or radiculitis, unspecified [facility] Diagnosis Onset Date Resolution Status Diarrhea acute [facility] Work Phone: Evaluation note* Diagnosis Angina pectoris (CMS/HCC)- Primary Other and unspecified angina pectoris Shortness of breath on exertion Shortness of breath Essential hypertension Unspecified essential hypertension Mixed hyperlipidemia Morbid obesity (CMS/HCC) Morbid obesity Cerebrovascular accident (CVA), unspecified mechanism (CMS/HCC) Never smoked any substance documented in this encounter [facility] Work Phone: Evaluation note* Diagnosis Onset Date Resolution Status Diarrhea acute Diarrhea acute Diverticulosis acute Fatty liver acute [facility] Work Phone: Evaluation note* Diagnosis Chronic left-sided low back pain with left-sided sciatica Pre-op testing Preoperative examination, unspecified Intractable chronic migraine without aura and without status migrainosus Chronic migraine without aura, with intractable migraine, so stated, without mention of status migrainosus Opioid dependence with opioid-induced disorder (HCC) Unspecified drug-induced mental disorder Secondary hypertension Other secondary hypertension, unspecified Primary hypertension Unspecified essential hypertension BMI 37.0-37.9, adult- Primary Body Mass Index [...] unspecified whether stage 3a or 3b CKD ([facility]) Postoperative infection, unspecified type, subsequent encounter Obesity without serious comorbidity, unspecified classification, unspecified obesity type Sleep apnea, unspecified type [facility] Diagnosis 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 Other testicular hypofunction documented in this encounter [facility]* Diagnosis Secondary male hypogonadism Other testicular hypofunction documented in this encounter [facility]* Diagnosis Chronic migraine without aura with status migrainosus, not intractable ([facility]) Lumbar radiculopathy Thoracic or lumbosacral neuritis or radiculitis, unspecified Cervical radiculopathy Brachial neuritis or radiculitis nos Degenerative disc disease, cervical Carpal tunnel syndrome, bilateral upper limbs History of stroke Transient ischemic attack (TIA), and cerebral infarction without residual deficits Restless leg syndrome Restless legs syndrome (RLS) Hyper reflexia Abnormal reflex documented in this encounter [facility]* Diagnosis Hyper reflexia- Primary Abnormal reflex documented in this encounter [facility]* Diagnosis Hyper reflexia Abnormal reflex documented in this encounter [facility]* Diagnosis Radiculopathy, lumbosacral region- Primary Thoracic or lumbosacral neuritis or radiculitis, unspecified documented in this encounter [facility]* Diagnosis Lumbar radiculopathy- Primary Thoracic or lumbosacral neuritis or radiculitis, unspecified History of stroke Transient ischemic attack (TIA), and cerebral infarction without residual deficits Chronic migraine without aura with status migrainosus, not intractable ([facility]) Chronic daily headache Headache Obstructive sleep apnea Obstructive sleep apnea (adult) (pediatric) Restless leg syndrome Restless legs syndrome (RLS) Degenerative disc disease, lumbar Radiculopathy, lumbosacral region Thoracic or lumbosacral neuritis or radiculitis, unspecified Cervical radiculopathy Brachial neuritis or radiculitis nos Degenerative disc disease, cervical Carpal tunnel syndrome, bilateral upper limbs documented in this encounter [facility] HealthcareEvaluation note* Diagnosis Lumbar radiculopathy- Primary Thoracic or lumbosacral neuritis or radiculitis, unspecified Cervical radiculopathy Brachial neuritis or radiculitis nos Degenerative disc disease, cervical Carpal tunnel syndrome, bilateral upper limbs documented in this encounter [facility] HealthcareEvaluation note* Diagnosis Radiculopathy, lumbosacral region Thoracic or lumbosacral neuritis or radiculitis, unspecified Lumbar radiculopathy Thoracic or lumbosacral neuritis or radiculitis, unspecified documented in this encounter [facility] HealthcareEvaluation note* Diagnosis Chronic migraine without aura with status migrainosus, not intractable (CMS/HCC)- Primary documented in this encounter [facility] HealthcareEvaluation note* Diagnosis Pre-op testing Preoperative examination, unspecified Intractable chronic migraine without aura and without status migrainosus Chronic migraine without aura, with intractable migraine, so stated, without mention of status migrainosus Opioid dependence with opioid-induced disorder (HCC) Unspecified drug-induced mental disorder Secondary hypertension Other secondary hypertension, unspecified Primary hypertension Unspecified essential hypertension BMI 37.0-37.9, adult- Primary Body Mass Index [...] unspecified obesity type Sleep apnea, unspecified type Lumbar radiculopathy- Primary Thoracic or lumbosacral neuritis or radiculitis, unspecified Radiculopathy of lumbar region Thoracic or lumbosacral neuritis or radiculitis, unspecified Cervical disc disorder with radiculopathy Brachial neuritis or radiculitis nos [facility] Shortness of breath on exertion- Primary Shortness of breath Essential hypertension Unspecified essential hypertension Mixed hyperlipidemia Morbid obesity (Multi) Morbid obesity Cerebrovascular accident (CVA), unspecified mechanism (Multi) Angina pectoris Other and unspecified angina pectoris BMI 39.0-39.9,adult Never smoked any substance documented in this encounter [facility] Work Phone: Evaluation note* Diagnosis Pre-op testing Preoperative examination, unspecified Intractable chronic migraine without aura and without status migrainosus Chronic migraine without aura, with intractable migraine, so stated, without mention of status migrainosus Opioid dependence with opioid-induced disorder (HCC) Unspecified drug-induced mental disorder Secondary hypertension Other secondary hypertension, unspecified Primary hypertension Unspecified essential hypertension BMI 37.0-37.9, adult- Primary Body Mass Index [...] unspecified obesity type Sleep apnea, unspecified type Lumbar radiculopathy- Primary Thoracic or lumbosacral neuritis or radiculitis, unspecified Lumbar radiculopathy Thoracic or lumbosacral neuritis or radiculitis, unspecified [facility] Chronic migraine without aura without status migrainosus, not intractable (CMS/HCC)- Primary [facility] Pre-op testing Preoperative examination, unspecified Intractable chronic migraine without aura and without status migrainosus Chronic migraine without aura, with intractable migraine, so stated, without mention of status migrainosus Opioid dependence with opioid-induced disorder (HCC) Unspecified drug-induced mental disorder Secondary hypertension Other secondary hypertension, unspecified Primary hypertension Unspecified essential hypertension BMI 37.0-37.9, adult- Primary Body Mass Index [...] unspecified obesity type Sleep apnea, unspecified type Radiculopathy of lumbar region Thoracic or lumbosacral neuritis or radiculitis, unspecified Lumbar radiculopathy Thoracic or lumbosacral neuritis or radiculitis, unspecified [facility] Diagnosis Pre-op testing Preoperative examination, unspecified Intractable chronic migraine without aura and without status migrainosus Chronic migraine without aura, with intractable migraine, so stated, without mention of status migrainosus Opioid dependence with opioid-induced disorder (HCC) Unspecified drug-induced mental disorder Secondary hypertension Other secondary hypertension, unspecified Primary hypertension Unspecified essential hypertension BMI 37.0-37.9, adult- Primary Body Mass Index [...] unspecified obesity type Sleep apnea, unspecified type Lumbar radiculopathy- Primary Thoracic or lumbosacral neuritis or radiculitis, unspecified Cervical disc disorder with radiculopathy Brachial neuritis or radiculitis nos Lumbar radiculopathy Thoracic or lumbosacral neuritis or radiculitis, unspecified Cervical disc disorder with radiculopathy Brachial neuritis or radiculitis nos [facility] Diagnosis Secondary male hypogonadism Other testicular hypofunction documented in this encounter [facility] HealthcareEvaluation note* Diagnosis Neck pain- Primary Cervicalgia Myalgia Unspecified myalgia and myositis documented in this encounter [facility] HealthcareEvaluation note* Diagnosis Pre-op testing Preoperative examination, unspecified Intractable chronic migraine without aura and without status migrainosus Chronic migraine without aura, with intractable migraine, so stated, without mention of status migrainosus Opioid dependence with opioid-induced disorder (HCC) Unspecified drug-induced mental disorder Secondary hypertension Other secondary hypertension, unspecified Primary hypertension Unspecified essential hypertension BMI 37.0-37.9, adult- Primary Body Mass Index [...] unspecified obesity type Sleep apnea, unspecified type Lumbar radiculopathy- Primary Thoracic or lumbosacral neuritis or radiculitis, unspecified [facility] Diagnosis Secondary male hypogonadism Other testicular hypofunction [facility] Diagnosis Pre-op testing Preoperative examination, unspecified Intractable chronic migraine without aura and without status migrainosus Chronic migraine without aura, with intractable migraine, so stated, without mention of status migrainosus Opioid dependence with opioid-induced disorder (HCC) Unspecified drug-induced mental disorder Secondary hypertension Other secondary hypertension, unspecified Primary hypertension Unspecified essential hypertension BMI 37.0-37.9, adult- Primary Body Mass Index [...] unspecified obesity type Sleep apnea, unspecified type Other disturbances of skin sensation- Primary Lumbar radiculopathy Thoracic or lumbosacral neuritis or radiculitis, unspecified [facility]* Diagnosis Pre-op testing Preoperative examination, unspecified Intractable chronic migraine without aura and without status migrainosus Chronic migraine without aura, with intractable migraine, so stated, without mention of status migrainosus Opioid dependence with opioid-induced disorder (HCC) Unspecified drug-induced mental disorder Secondary hypertension Other secondary hypertension, unspecified Primary hypertension Unspecified essential hypertension BMI 37.0-37.9, adult- Primary Body Mass Index [...] unspecified obesity type Sleep apnea, unspecified type Lumbar pseudoarthrosis- Primary Nonunion of fracture [facility] Angina pectoris- Primary Other and unspecified angina pectoris Essential hypertension Unspecified essential hypertension Shortness of breath on exertion Shortness of breath Mixed hyperlipidemia Morbid obesity (Multi) Morbid obesity BMI 39.0-39.9,adult Cerebrovascular accident (CVA), unspecified mechanism (Multi) Never smoked any substance documented in this encounter [facility] Work Phone: History and physical note Author Cathy Zavala [facility] May 03, 2022 6:54pm Note Date/Time May 03, 2022 6 :54pm [facility] [address] [place] [address] Hospitalist H&P Signed Patient: Mary Jimenez MR#: [id number] : 1960 Acct:[id number] Age/Sex: 61 / M Adm Date: 2 Loc: 4 Room: [address] [place] [address] Type: ADM IN Attending Dr: Cathy Zavala MD Copies to: DO Cathy Bhatia MD~ HPI DATE OF EXAMINATION: 05/03/22 CHIEF [...] in the beginning of the year at [facility]. He was seen in the emergency room in August and was transferred to the [facility] from the emergency room due to concern for infection and had positive blood cultures. Patient cannot recall the details but mentioned after getting discharged from the hospital he stayed in assisted facility for 3-month. He has chronic back [...] than mentioned in history of [facility] Yes Medical History [...] mg PO DAILY 03/30/17 [History Confirmed 05/03/22] ffknzjyc-pzfpgbou-mkeit acid 400 mcg-vit K 20 mcg-lycop 300 [...] % (Auto) 17.2 % (.) 05/03/22 14:46 [place] % (Auto) 9.5 % (.) 05/03/22 14:46 Eos % (Auto) 4.5 % (.) 05/03/22 14:46 Baso % (Auto) 1.1 % (.) 05/03/22 14:46 Neut # (Auto) 5.0 x10E3/uL (1.8-7.7) 05/03/22 14:46 Lymph # (Auto) 1.3 x10E3/uL (1.00-4.8) 05/03/22 14:46 [place] # (Auto) 0.7 x10E3/uL (0.0-0.8) 05/03/22 14:46 [...] pH 6.0 (5.0-9.0) 05/03/22 15:55 Ur Specific [place] 1.015 (1.001-1.030) 05/03/22 15:55 Urine Protein Negative [...] precaution. Documented By: Cathy Zavala MD 05/03/22 5632 Signed By: <Electronically signed by Cathy Zavala MD> 05/03/22 1854 [facility] Work Phone: Hisfqyh general Narrative - Reported* Type Description Date [...] surgery x 2 Surgical History back surgery irizarry L4-5 her niated disc 2005 Surgical History Lithotripsy 1990 Surgical History colonoscopy, diverti culitis, hemmorhoid Esparza, EGD - erosive esophagitis, hiatal hernia Esparza 2010 Surgical History L4-5 decompressive laminectomy/ fusion [facility] 2010 Surgical History Left knee arthroscopy- [place] 2 015 Surgical History Right shoulder bicept tendon re pair- 02/14/2016 Surgical History L KNEE SURGERY DR ZHENG 06/13 Surgical History EGD/COLONOSCOPY/Poly pectomyTubulovillous adenome w/ focal high grade epithelial dysplasia, diverticulosis, Spastic colon 11/2015 Surgical History EGD, bile reflux, Esparza Jan us2016 Surgical History colonoscopy, diverticulosis, [facility] January 2017 Surgical History RTKA-Dr Zheng 06/06/19 Surgical History I&D RTKA with poly exchange syn ovectomy- Dr Zheng 07/19/19 Hospitalization History kidney stones 1979 Hospitalization History Cardiac cath (neg) NO 1997 Hospitalization History Myoview stress test (neg ) [facility] 10/2007 Hospitalization History Lexiscan excercise stres s test (neg) [facility] 07/2010 Hospitalization History Acute CVA [facility] 2013 Hospitalization History Acute cephalgia 11/2013 Hospitalization History Lexiscan stress test (ne g) NO 06/2014 [facility] Other Hisvici general Narrative - Reported* Type Description Date [...] surgery x 2 Surgical History back surgery irizarry L4-5 her niated disc 2005 Surgical History Lithotripsy 1990 Surgical History colonoscopy, diverti culitis, hemmorhoid Esparza, EGD - erosive esophagitis, hiatal hernia Esparza 2010 Surgical History L4-5 decompressive laminectomy/ fusion Barney 2010 Surgical History Left knee arthroscopy- [place] 2 015 Surgical History Right shoulder bicept tendon re pair- 02/14/2016 Surgical History L KNEE SURGERY DR ZHENG 06/13 Surgical History EGD/COLONOSCOPY/Poly pectomyTubulovillous adenome w/ focal high grade epithelial dysplasia, diverticulosis, Spastic colon 11/2015 Surgical History EGD, bile reflux, Esparza Jan ust 2016 Surgical History colonoscopy, diverticulosis, [place] January 2017 Surgical History RTKA-Dr Zheng 06/06/19 Surgical History I&D RTKA with poly e xchange synovectomy- Dr Zheng 07/19/19 Surgical History Lumbar fusion [facility] July [...] (neg) NO 07/2010 Hospitalization History Acute CVA [facility] 2013 Hospitalization History Acute cephalgia 11/2013 Hospitalization History Lexiscan stress test (ne g) NO 06/2014 [facility] Other Histdrq general Narrative - Reported* Type Description Date [...] surgery x 2 Surgical History back surgery irizarry L4-5 her niated disc 2005 Surgical History Lithotripsy 1990 Surgical History colonoscopy, diverti culitis, hemmorhoid Esparza, EGD - erosive esophagitis, hiatal hernia Esparza 2010 Surgical History L4-5 decompressive laminectomy/ fusion Barney 2010 Surgical History Left knee arthroscopy- [place] 2 015 Surgical History Right shoulder bicept tendon re pair- 02/14/2016 Surgical History L KNEE SURGERY DR ZHENG 06/13 Surgical History EGD/COLONOSCOPY/Poly pectomyTubulovillous adenome w/ focal high grade epithelial dysplasia, diverticulosis, Spastic colon 11/2015 Surgical History EGD, bile reflux, Esparza Aug ust 2016 Surgical History colonoscopy, diverticulosis, [place] January 2017 Surgical History RTKA-Dr Zheng 06/06/19 Surgical History I&D RTKA with poly e xchange synovectomy- Dr Zheng 07/19/19 Surgical History Lumbar fusion [facility] July [...] (neg) NO 07/2010 Hospitalization History Acute CVA [facility] 2013 Hospitalization History Acute cephalgia 11/2013 Hospitalization History Lexiscan stress test (ne g) NO 06/2014 Hospitalization History 1) Postlaminecto my syndrome: (2) Atypical migraine: (3) Obstructive sleep apnea: (4) Dizziness: (5) Repeated falls: (6) Slurred speech: (7) Chronic kidney disease, stage 3: (8) Lumbar radicular pain: Fi 05/03/2022 [facility] Other History general Narrative - Reported* Type [...] repair 1979 Surgical History right knee surgery [facility] 2010 Surgical History lumbar surgery x 2 Surgical History back surgery irizarry L4-5 her niated disc 2005 Surgical History Lithotripsy 1990 Surgical History colonoscopy, diverti culitis, hemmorhoid Esparza, EGD - erosive esophagitis, hiatal hernia Esparza 2010 Surgical History L4-5 decompressive laminectomy/ fusion [facility] 2010 Surgical History Left knee arthroscopy- [facility] 2 015 Surgical History Right shoulder bicept tendon re pair- 02/14/2016 Surgical History L KNEE SURGERY DR ZHENG 06/13 Surgical History EGD/COLONOSCOPY/Poly pectomyTubulovillous adenome w/ focal high grade epithelial dysplasia, diverticulosis, Spastic colon 11/2015 Surgical History EGD, bile reflux, Esparza Aug ust 2016 Surgical History colonoscopy, diverticulosis, [place] January 2017 Surgical History RTKA-Dr Zheng 06/06/19 Surgical History I&D RTKA with poly e xchange synovectomy- Dr Zheng 07/19/19 Surgical History Lumbar fusion [facility] July [...] (neg) NO 07/2010 Hospitalization History Acute CVA [facility] 2013 Hospitalization History Acute cephalgia 11/2013 Hospitalization History Lexiscan stress test (ne g) NO 06/2014 Hospitalization History 1) Postlaminecto my syndrome: (2) Atypical migraine: (3) Obstructive sleep apnea: (4) Dizziness: (5) Repeated falls: (6) Slurred speech: (7) Chronic kidney disease, stage 3: (8) Lumbar radicular pain: Fi 05/03/2022 [facility] Other History general Narrative - Reported* Type [...] repair 1979 Surgical History right knee surgery [facility] 2010 Surgical History lumbar surgery x 2 Surgical History back surgery irizarry L4-5 her niated disc 2005 Surgical History Lithotripsy 1990 Surgical History colonoscopy, diverti culitis, hemmorhoid Esparza, EGD - erosive esophagitis, hiatal hernia Esparza 2010 Surgical History L4-5 decompressive laminectomy/ fusion [facility] 2010 Surgical History Left knee arthroscopy- [place] 2 015 Surgical History Right shoulder bicept tendon re pair- 02/14/2016 Surgical History L KNEE SURGERY DR ZHENG 06/13 Surgical History EGD/COLONOSCOPY/Poly pectomyTubulovillous adenome w/ focal high grade epithelial dysplasia, diverticulosis, Spastic colon 11/2015 Surgical History EGD, bile reflux, Esparza Aug ust 2016 Surgical History colonoscopy, diverticulosis, [place] January 2017 Surgical History RTKA-Dr Zheng 06/06/19 Surgical History I&D RTKA with poly e xchange synovectomy- Dr Zheng 07/19/19 Surgical History Lumbar fusion [facility] July 2021 Surgical History Revision of lumbar f usion, incision and drainage infection [facility] August 2021 Surgical History Revision lumbar fusion, L4 to p clem fusion [facility] December 2021 Surgical History Carpal tunnel left hand 2020 Surgical History Right knee arthroscopy Dr. Yancey 2021 Hospitalization History kidney stones 1979 Hospitalization History Cardiac cath (neg) [facility] 1997 Hospitalization History Myoview stress test (neg ) [facility] 10/2007 Hospitalization History Lexiscan excercise stres s test (neg) [facility] 07/2010 Hospitalization History Acute CVA [facility] 2013 Hospitalization History Acute cephalgia 11/2013 Hospitalization History Lexiscan stress test (ne g) [facility] 06/2014 Hospitalization History 1) Postlaminecto my syndrome: (2) Atypical migraine: (3) Obstructive sleep apnea: (4) Dizziness: (5) Repeated falls: (6) Slurred speech: (7) Chronic kidney disease, stage 3: (8) Lumbar radicular pain: Fi 05/03/2022 Hospitalization History ER for cellulitis left a rm 03..2022 [facility] Other History of Present illness Narrative* Since [...] continue Plavix and stop Plavix for now -[facility]y [address] DO Work Phone: Hospital course Narrative No data available for this section [facility] Discharge instructions No data available for this section [facility] Discharge instructions Additional Instructions [...] any problems arise before your appointment. 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 1. You were given conscious sedation. Do not operate a vehicle, power tools, make important decisions, or drink alcohol for 24 hours. You might be drowsy or light headed. Return to the Emergency Room if you have trouble breathing, walking or nausea and vomiting. 2. FOR BLEEDING: Apply continuous pressure to the site and call 911. 3. Operative Site Care: Keep the dressing clean and dry. You may change the dressing only if soiled or wet. You may remove the dressing the following morning. You may wash over the puncture site in the shower. If the puncture site is at the wrist no soaking for 3 days. Some bruising or slight swelling may be present. -Signs of infection are redness, warmth, swelling, getting more sore, colored drainage, fever or chills. -Should the arm or leg become cold, numb, blue or white, call the banking assistant immediately. 4. ACTIVITY: You are advised to go directly home from the hospital. Restrict your activities for the rest of the day. Resume light or normal activities tomorrow. Do not engage in any activity that will stress the puncture site. Avoid heavy lifting (over 15 lbs.), straining or bending at the catheter site for 48 hours after discharge. If the puncture site is at the wrist do not manipulate wrist for 24 hours and no lifting more than 3 lbs for 3 days. 5. DIET:You may eat your regular diet when you desire. 6. MEDICATIONS: Resume your daily prescription schedule. Prescriptions may be sent with you if needed. Use as directed. When taking pain medications, you may experience dizziness or drowsiness. Do not drink alcohol or drive when taking pain medications. 7. If you should experience episodes of angina e.g. chest discomfort, heaviness, tightness, pressure, burning, with or without radiation to the neck, jaws, arms, or back- Use 1 Nitrostat under your tongue every 5-10 minutes, and up to 3 tablets. If no relief- Call 911 and go to the nearest Emergency Room. -Notify the office for recurrent angina, chest pain or other concerns. You may NOT drive yourself home! Follow the medication instructions provided on your discharge. If the dosages and instructions on this sheet differ from the dosage and instructions on the bottle, follow the instructions on the bottle. [facility] is not responsible for incorrect prescription information provided by the patient during their visit. Do not stop your medications without consulting your health care provider. Please take the list with you to your next doctor's appointment.[facility] Work Phone: Progress note No data available for this section [facility] Author Cathy Zavala [facility] May 04, 2022 4:15pm Note Date/Time May 04, 2022 4 :11pm [facility] [address] [place] [address] Hospitalist Progress Note Signed Patient: Mary Jimenez MR#: [id number] : 1960 Acct:[id number] Age/Sex: 61 / M Adm Date: 2 Loc: 4N Room: [address] [place] [address] Type: ADM IN Attending Dr: Cathy Zavala MD Copies to: ~ Date of Service: 05/04/2022 Subjective Subjective Narrative: Patient complaining of right leg pain which is chronic and requesting to resume his [place]. He was not able to sleep well [...] 14:00 05/04/22 13:38 Duloxetine 30 Mg Capsule.Dr PO 05/04/23 13:59 30 mg TID YNES Administration Enoxaparin Sodium 40 mg 05/04/22 10:00 05/04/22 09:40 Enoxaparin 40 Mg/0.4 Ml Syringe SUBCUT 05/04/23 09:59 40 mg DAILY@10 YNES Administration Finasteride 5 mg 05/04/22 09:00 05/04/22 09:32 Finasteride 5 Mg Tablet PO 05/04/23 08:59 5 mg DAILY YNSE Administration Fluticasone Propionate 2 spray 05/04/22 15:30 Fluticasone Propionate [place] 120 [place]/16 Gm Bottle INTRANASAL 05/04/23 15:29 DAILY PRN [...] 05/04/22 09:00 05/04/22 09:32 Omeprazole 20 Mg Capsule. PO 05/04/23 08:59 [...] <Electronically signed by Cathy Zavala MD> 05/04/22 2957 [facility] Work Phone: Progress note Author Se Rodriges [facility] May 05, 2022 5:07pm Note Date/Time May 05, 2022 9 :04am [facility] [address] [place] [address] Neurology Progress Note Signed Patient: Mary Jimenez MR#: [id number] : 1960 Acct:[id number] Age/Sex: 61 / M Adm Date: 2 Loc: 4N Room: [address] [place] [address] Type: ADM INOo Attending Dr: Cathy Zavala [...] compared to the left. CEREBELLAR EXAM: * [id number]-[id number] and alternating movements are intact and normal in bilateral upper extremities * [id number] and alternating movements are intact and normal [...] Recommendations OT Recommended Discharge Home with Home Health,[facility] Location OT Recommended Services at 19/01 Supervision Discharge PT Recommendations PT Recommended Discharge Home with Home Health,Senior Care Facility Location PT Recommended Services at Physical [...] year on his lumbar spine at the [facility]. He had discectomy and fusion from L3 [...] the plan of care and confirmed the GROUNDS PERSON note Patient is a 61-year-old male with [...] 05/05/22 1212 <Electronically signed by MD Se Rodriges> 05/05/22 1709 [facility] Work Phone: Progress note Author Cathy Zavala [facility] May 05, 2022 1:17pm Note Date/Time May 05, 2022 1 :12pm [facility] [address] [place] [address] Hospitalist Progress Note Signed Patient: Mary Jimenez MR#: [id number] : 1960 Acct:[id number] Age/Sex: 61 / M Adm Date: 2 Loc: 4N Room: [address] [place] [address] Type: ADM INOo Attending Dr: Cathy Zavala [...] spray 05/04/22 15:30 05/04/22 17:38 Fluticasone Propionate Hickory 120 Hickory/16 Gm Bottle INTRANASAL 05/04/23 15:29 2 spray [...] 05/04/22 09:00 05/05/22 10:04 Omeprazole 20 Mg Capsule. PO 05/04/23 08:59 [...] signed by Cathy Zavala MD> 05/05/22 1317 [facility] Work Phone: Progress note Author Se Rodriges [facility] May 06, 2022 4:12pm Note Date/Time May 06, 2022 8 :20am [facility] [address] [place] [address] Neurology Progress Note Signed Patient: Mary Jimenez MR#: [id number] : 1960 Acct:[id number] Age/Sex: 61 / M Adm Date: 2 Loc: Room: [address] [place] [address] Type: ADM INOo Attending Dr: Cathy Zavala [...] compared to the left. CEREBELLAR EXAM: * Wvicxd-os-basu and alternating movements are intact and normal in bilateral upper extremities * Bger-tw-giah and alternating movements are intact and normal [...] Recommendations OT Recommended Discharge Home with Home Health,Senior Care Facility Location OT Recommended Services at 24/7 Supervision Discharge PT Recommendations PT Recommended Discharge Home with Home Health,Senior Care Facility Location PT Recommended Services at Physical Therapy,Occupational Therapy,24/ Discharge Supervision Assessment/Plan (1) Atypical migraine: Assessment/Problem [...] year on his lumbar spine at the [facility]. He had discectomy and fusion from L3 [...] the plan of care and confirmed the GROUNDS PERSON note The patient is a 61-year-old male [...] and recommendations for either home health or assisted facility. The patient will need physical therapy upon discharge. The patient has pain management physician in [facility] which she can follow-up with or can see pain management at [facility]. The patient can attempt repeat MRI scan as an outpatient and a large bore MRI scanner. Code(s): G43.009 - Migraine without aura, not intractable, without status migrainosus Status: Acute (2) Sepsis: Code(s): A41.9 - Sepsis, unspecified organism Status: Acute Documented By: LYN Solis [id number] Signed By: <Electronically signed by LYN Clark> 05/06/22 0944 <Electronically signed by MD Se Rodriges> 05/06/22 1612 [facility] Work Phone: Progress note Author Cathy Zavala [facility] May 06, 2022 2:21pm Note Date/Time May 06, 2022 2 :21pm [facility] [address] [place] [address] Hospitalist Progress Note Signed Patient: Mary Jimenez MR#: [id number] : 1960 Acct:[id number] Age/Sex: 61 / M Adm Date: 2 Loc: 4N Room: [address] [place] [address] Type: ADM INOo Attending Dr: Cathy Zavala MD Copies to: ~ Date of Service: 05/06/2022 Subjective Subjective Narrative: Patient examined at bedside with no overnight event. He has been able to ambulate with physical therapy but continues to complain of back pain radiating to right lower extremity. Scheduled for MRI at [facility] due to presence of spinal stimulator. [...] spray 05/04/22 15:30 05/04/22 17:38 Fluticasone Propionate Hickory 120 Hickory/16 Gm Bottle INTRANASAL 05/04/23 15:29 2 spray [...] signed by Cathy Zavala MD> 05/06/22 1421 [facility] Work Phone: Reason for referral (narrative)* Diagnostic Procedure Only (Routine) - Closed Specialty Diagnoses / Procedures Referred By Contac t Referred To Contact XR IMAGING Diagnoses Radiculopathy, lumbar region Procedures XR LUMBAR LIMITED 2V AP/LAT RADEX SPINE LUMBOSACRAL 2/[place] [address] [place] [address] Xr Imaging Referral ID Status Reason Start Date Expiration Date V isits Requested Visits Authorized [id number] Closed Auto-Generate d Referral 01/15/2022 02/14/2023 1 1 [facility] for referral (narrative)* Diagnostic Procedure Only (Routine) - Pending Review Specialty Diagnoses / Procedures Referred By Paula t Referred To Contact XR IMAGING Diagnoses Lumbar radiculopathy Procedures XR LUMBAR LIMITED 2V AP/LAT RADEX SPINE LUMBOSACRAL 2/[place] [address] [place] [address] Xr Imaging Referral ID Status Reason Start Date Expiration Date Visits Requested Visits Authorized [id number] Pending Review Auto-Generat ed Referral 02/21/2022 03/23/2023 1 1 [facility] for referral (narrative)* Reason OBESITY Diagnosis 1 Obesity (E66.9) Referral Organization [facility] Bryan Izaguirre Referring Provider First Name Jose Referring Provider Last Name Oberer Referring Provider Specialty Family Prac shlomo Referred Organization [facility] Referred Provider Rafael Holbrook Referred Address [address] [place] [address],[facility] F,[place], [place],[address] Referred Provider Specialty Internal Med icine Referral Priority Routine [email or web address] [email or web address] Other [employer] for referral (narrative)* Consultation (Routine) - Authorized Specialty Diagnoses / Procedures Referred By Contkayla t Referred To Contact Cardiology Diagnoses Essential hypertension Procedures Follow Up In Cardiology Danisha Bran MD [address] [facility] [address] [place] [address] Danisha Bran MD [address] [facility] [address] [place] [address] Referral ID Status Reason Start Date Expiration Date V isits Requested Visits Authorized [id number] Authorized 08/28/2023 08/27/2024 1 1 [facility] Work Phone: Reason for referral (narrative)No reason for referral information [facility] Work Phone: Reason for visit Narrative* Diagnostic Procedure Only (Routine) - Closed Specialty Diagnoses / Procedures Referred By Contac t Referred To Contact XR IMAGING Diagnoses Radiculopathy, lumbar region Procedures XR LUMBAR LIMITED 2V AP/LAT RADEX SPINE LUMBOSACRAL 2/[place] [address] [place] [address] Xr Imaging Referral ID Status Reason Start Date Expiration Date V isits Requested Visits Authorized [id number] Closed Auto-Generate d Referral 01/15/2022 02/14/2023 1 1 [facility] N[facility]ative[facility] INFE[facility], [facility]acy: [facility], Pt states he's had sinus congestion for a week now. Sx have progressed to coughing/ congestion. Pt used OTC Benadryl w/ no relief. Denies taking an at home covid test[facility] [email or web address] Other Reason for visit Narrative* MRI/CT (Routine) - Closed Specialty Diagnoses / Procedures Referred By Contac t Referred To Contact CT IMAGING Diagnoses Radiculopathy of lumbar region Procedures CT LUMBAR SPINE WO IVCON CT LUMBAR SPINE W/O CONTRAST MATERIAL Loyda Steele MD [address] [place] [address] Phone: tel: fax: [place] [address] Referral ID Status Reason Start Date Expiration Date V isits Requested Visits Authorized [id number] Closed Auto-Generate d Referral 07/20/2024 08/19/2025 1 1 [facility] Summary Purpose Family History No Family History [...] neoplasm Unknown brother High blood cholesterol Unknown Relationship Condition Age at Onset Recorded Date/T larry father Diabetes mellitus Unknown Hypertension Unknown mother Diabetes mellitus Unknown Malignant neoplasm Unknown brother High blood cholesterol Unknown Relationship Condition Age at Onset Recorded Date/T larry father Diabetes mellitus Unknown Hypertension Unknown mother Diabetes mellitus Unknown Malignant neoplasm of pancreas Unknown brother High blood cholesterol Unknown Advance Directives No Advanced Directives Records FoundDocuments on File Type Date Recorded Patient [employer] Expl anation Advance Directive(s) 09/13/2021 12:58 PM Advance Directive(s) 08/16/2021 6:44 AM Documents on File Type Date Recorded Patient Hotel [employer] Expl anation Advance Directive(s) 09/13/2021 12:58 PM Advance Directive(s) 08/16/2021 6:44 AM Documents on File Type Date Recorded Patient Hotel [employer] Expl anation Advance Directive(s) 11/22/2021 12:09 PM Advance Directive(s) 09/13/2021 12:58 PM Advance Directive(s) 08/16/2021 6:44 AM Documents on File Type Date Recorded Patient Hotel [employer] Expl anation Advance Directive(s) 11/22/2021 12:09 PM Advance Directive(s) 09/13/2021 12:58 PM Advance Directive(s) 08/16/2021 6:44 AM Documents on File Type Date Recorded Patient Hotel [employer] Expl anation Advance Directive(s) 12/18/2021 12:58 PM Advance Directive(s) 11/22/2021 12:09 PM Advance Directive(s) 09/13/2021 12:58 PM Advance Directive(s) 08/16/2021 6:44 AM Documents on File Type Date Recorded Patient Hotel [employer] Expl anation Advance Directive(s) 12/31/2021 7:53 AM Advance Directive(s) 12/18/2021 12:58 PM Advance Directive(s) 11/22/2021 12:09 PM Advance Directive(s) 09/13/2021 12:58 PM Advance Directive(s) 08/16/2021 6:44 AM Documents on File Type Date Recorded Patient Hotel [employer] Expl anation Advance Directive(s) 12/31/2021 7:53 AM [...] Advance Directives No August 06, 2023 9:20am Advance Directive Response Recorded Date/ Time Advance Directives No August 06, 2023 10:20am Reason for Referral Specialty Diagnoses / Procedures Referred By Contac t Referred To Contact CT IMAGING Diagnoses Radiculopathy of lumbar region Procedures CT LUMBAR SPINE WO IVCON CT LUMBAR SPINE W/O CONTRAST MATERIAL Loyda Steele MD [address] [place] [address] [place] [address] Referral ID Status Reason Start Date Expiration Date Visits Requested Visits Authorized [id number] New Request Auto-Generat ed Referral 07/20/2024 08/19/2025 1 1 Specialty Diagnoses / Procedures Referred By Contac t Referred To Contact Diagnoses Chronic daily headache Degenerative disc disease, cervical Procedures Trigger Point Injection: right cervical paraspinals, left cervical paraspinals Ewa Rodriguez PA [address] [place] [address] Referral ID Status Reason Start Date Expiration Date V isits Requested Visits Authorized [id number] Incomplete 02/16/2024 08/14/2024 1 1 Specialty Diagnoses / Procedures Referred By Contac t Referred To Contact Diagnoses Secondary male hypogonadism Rosey Dubose MD [address] [place] [address] Referral ID Status Reason Start Date Expiration Date V isits Requested Visits Authorized [id number] Pending Review 04/01/2024 09/28/2024 1 1 Specialty Diagnoses / Procedures Referred By Contac t Referred To Contact MR IMAGING Diagnoses Chronic left-sided low back pain with left-sided sciatica Procedures MRI LUMBAR SPINE WO IVCON MRI, LUMBAR SPINE Nemunaitis, Gilmar Milton MD [address] [place] [address] [place] [address] Referral ID Status Reason Start Date Expiration Date V isits Requested Visits Authorized [id number] Closed Auto-Generate d Referral 01/31/2021 03/17/2021 1 1 Reason please refer raimundo de la vega to [facility] for EMG bilateral upper extremity Diagnosis 1 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 [place],[address] Referred Provider Specialty Neurology Referral Priority Routine General Notes Anika Carter 08:06:12 AM >received today, holding until Dr Andino's note is locked Anika Carter 10/17/2022 08:27:34 AM >still holding, note not locked yet Reason * Waiting for appt to assess and treat Diagnosis 1 Left arm swelling (M 79.89) Referral Organization [facility] Family Medicin elvin Dmitriy Referring Provider First Name Jose Referring Provider Last Name Oberer Referring Provider Specialty Family Prac shlomo Referred Organization [facility] Referred Provider Parth Hdz Referred Address [address],[place],[address] Referred Provider Specialty Orthopedic S urgery Referral Priority Routine General Notes Jackie Mccoy 07:44:38 AM >referral received and faxed p2p successful per log Reason * FU 09/15 consult for bariatric surgery Diagnosis 1 Obesity, morbid, BMI 40.0-49.9 (E66.01) Referral Organization [facility] Family Bryan birch Dmitriy Referring Provider First Name Jose Referring Provider Last Name Oberer Referring Provider Specialty Family Prac shlomo Referred Organization [facility] Referred Address [address] [place] [place] [place], [place],[address] Referred Provider Specialty Surgery Referral Priority Routine [...] HIGH COMPLEX 45 MINS Christine Gutierrez PA-C [address] [place] [address] [facility] [place] [address] [place] [address] Referral ID Status Reason Start Date Expiration Date Visits Requested Visits Authorized [id number] Pending Review Auto-Generat ed Referral 2 04/17/2023 1 1 Specialty Diagnoses / Procedures Referred By Paula ibrahim Referred To Contact CT IMAGING Diagnoses Acute bilateral low back pain with left-sided sciatica Procedures CT LUMBAR SPINE WO IVCON CT LUMBAR SPINE W/O CONTRAST MATERIAL Laura Beltran PA-C [address] [place] [address] Ct Imaging Referral ID Status Reason Start Date Expiration Date Visits Requested Visits Authorized [id number] Pending Review Auto-Generat ed Referral 03/20/2022 04/12/2023 1 1 Specialty Diagnoses / Procedures Referred By Contac t Referred To Contact [facility] Diagnoses Spondylolisthesis of lumbar region Procedures CONSULT TO PHYSICAL THERAPY PHYSICAL THERAPY EVALUATION HIGH COMPLEX 45 MINS Laura Beltran PA-C [address] [id number] [facility] [place] [address] [place] [address] Referral ID Status Reason Start Date Expiration Date Visits Requested Visits Authorized [id number] Pending Review Auto-Generat ed Referral 02/18/2022 02/18/2023 1 1 Reason LLQ pain Diagnosis 1 Right inguinal pain (R10.31) Referral Organization [facility] Family [facility]in [address] Referring Provider First Name Jose Referring Provider Last Name Oberer Referring Provider Specialty Family Prac shlomo Referred Organization [facility] Referred Provider Ochoa Arango Referred Address ,[place], [place],[address] Referred Provider Specialty Surgery Referral Priority Routine General Notes Merced Briseno 2020 04:09:03 PM >REFERRAL SENT Specialty Diagnoses / Procedures Referred By Contac t Referred To Contact Diagnoses Pre-op testing Procedures REFER TO PACC - PRE ANESTHESIA CONSULTATION CLINIC OFFICE/OUTPATIENT [facility] 60-74 MINUTES Christine Gutierrez PA-C [address] [place] [address] Referral ID Status Reason Start Date Expiration Date Visits Requested Visits Authorized [id number] Authorized PCP Requested Referral 12/06/2021 12/05/2022 1 1 Specialty Diagnoses / Procedures Referred By Contac t Referred To Contact Pain Management Diagnoses Chronic bilateral low back pain without sciatica Procedures CONSULT TO PAIN MGT OFFICE/OUTPATIENT [facility] MDM 60-74 MINUTES Venkatesh Moody PA-C [address] [place] [address] Referral ID Status Reason Start Date Expiration Date Visits Requested Visits Authorized [id number] Authorized PCP Requested Referral 11/07/2021 11/06/2022 1 [...] diahrrea Reason for Visit Diarrhea Chief Complaint Diarrhea fatty liver Sinus Infection R19.7 Obesity diahrrea diahrrea Z91.09 uuehwhd-zmyfwpy-szgkxfwc/wt loss RD WM f/u Reason for Visit Diarrhea Diarrhea Diverticulosis Fatty liver Chief Complaint Diarrhea fatty liver Sinus Infection R19.7 Obesity diahrrea diahrrea Z91.09 cugkgap-msqcqio-bpyhquzt/wt loss RD WM f/u WMN f/up Reason for Visit Diarrhea Diarrhea Diverticulosis Fatty liver Chief Complaint Diarrhea fatty liver Sinus Infection R19.7 Obesity diahrrea diahrrea Z91.09 mkchwho-dlascvq-wachurpt/wt loss RD WM f/u WMN f/up J22 Amb Documentation Reason for Visit Diarrhea Diarrhea Diverticulosis Fatty liver BMI 40.0-44.9, adult Diarrhea Essential hypertension Fatty liver Obstructive sleep apnea of adult Osteoarthritis of knee Prediabetes Chief Complaint diahrrea diahrrea Z91.09 ppnzmmi-dacttss-nlsrxluk/wt loss RD WM f/u WMN f/up J22 Amb Documentation e78.2 r19.7 n19 6 MONTH/LABS Reason for Visit Diarrhea Diarrhea Diverticulosis Fatty liver BMI 40.0-44.9, adult Diarrhea Essential hypertension Fatty liver Obstructive sleep apnea of adult Osteoarthritis of knee Prediabetes Chief Complaint diahrrea diahrrea Z91.09 exrmzft-cpfuekv-oexyknal/wt loss RD WM f/u WMN f/up J22 Amb Documentation e78.2 r19.7 n19 6 MONTH/LABS J31.0 Reason for Visit Diarrhea Diarrhea Diverticulosis Fatty liver BMI 40.0-44.9, adult Diarrhea Essential hypertension Fatty liver Obstructive sleep apnea of adult Osteoarthritis of knee Prediabetes Atypical migraine BMI 40.0-44.9, adult Chronic back pain Chronic kidney disease, stage 3 Chronic rhinitis Coronary artery disease involving [place] coronary artery of [place] heart Diarrhea Diverticulosis Essential hypertension Fatty liver Generalized anxiety disorder with panic attacks Generalized OA Left ear impacted cerumen Lumbar radicular pain 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 Obstructive sleep apnea Polypharmacy Postlaminectomy syndrome Prediabetes Stable angina Chief Complaint RD WM f/u WMN f/up J22 Amb Documentation e78.2 r19.7 n19 6 MONTH/LABS J31.0 Reason for Visit BMI 40.0-44.9, adult Diarrhea Essential hypertension Fatty liver Obstructive sleep apnea of adult Osteoarthritis of knee Prediabetes Atypical migraine BMI 40.0-44.9, adult Chronic back pain Chronic kidney disease, stage 3 Chronic rhinitis Coronary artery disease involving [place] coronary artery of [place] heart Diarrhea Diverticulosis Essential hypertension Fatty liver Generalized anxiety disorder with panic attacks Generalized OA Left ear impacted cerumen Lumbar radicular pain 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 Obstructive sleep apnea Polypharmacy Postlaminectomy syndrome Prediabetes Stable angina Chief Complaint e78.2 r19.7 n19 6 MONTH/LABS J31.0 post lumbar lami Reason for Visit Atypical migraine BMI 40.0-44.9, adult Chronic back pain Chronic kidney disease, stage 3 Chronic rhinitis Coronary artery disease involving [place] coronary artery of [place] heart Diarrhea Diverticulosis Essential hypertension Fatty liver Generalized anxiety disorder with panic attacks Generalized OA Left ear impacted cerumen Lumbar radicular pain 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 Obstructive sleep apnea Polypharmacy Postlaminectomy syndrome Prediabetes Stable angina BMI 40.0-44.9, adult Essential hypertension Fatty liver Mixed hyperlipidemia Obstructive sleep apnea of adult Prediabetes Chief Complaint 6 MONTH/LABS J31.0 post lumbar lami bilateral involuntary hand twitching M54.2 Reason for Visit Atypical migraine BMI 40.0-44.9, adult Chronic back pain Chronic kidney disease, stage 3 Chronic rhinitis Coronary artery disease involving [place] coronary artery of [place] heart Diarrhea Diverticulosis Essential hypertension Fatty liver Generalized anxiety disorder with panic attacks Generalized OA Left ear impacted cerumen Lumbar radicular pain 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 Obstructive sleep apnea Polypharmacy Postlaminectomy syndrome Prediabetes Stable angina BMI 40.0-44.9, adult Essential hypertension Fatty liver Mixed hyperlipidemia Obstructive sleep apnea of adult Prediabetes Chief Complaint 6 MONTH/LABS J31.0 post lumbar lami bilateral involuntary hand twitching M54.2 Reason for Visit Atypical migraine BMI 40.0-44.9, adult Chronic back pain Chronic kidney disease, stage 3 Chronic rhinitis Coronary artery disease involving [place] coronary artery of [place] heart Diarrhea Diverticulosis Essential hypertension Fatty liver Generalized anxiety disorder with panic attacks Generalized OA Left ear impacted cerumen Lumbar radicular pain 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 Obstructive sleep apnea Polypharmacy Postlaminectomy syndrome Prediabetes Stable angina BMI 40.0-44.9, adult Essential hypertension Fatty liver Mixed hyperlipidemia Obstructive sleep apnea of adult Prediabetes Generalized anxiety disorder with panic attacks Obstructive sleep apnea Postlaminectomy syndrome Sinusitis, acute Hyperreflexic Chief Complaint J31.0 post lumbar lami bilateral involuntary hand twitching M54.2 DEANA/ANNUAL Reason for Visit BMI 40.0-44.9, adult Essential hypertension Fatty liver Mixed hyperlipidemia Obstructive sleep apnea of adult Prediabetes Generalized anxiety disorder with panic attacks Obstructive sleep apnea Postlaminectomy syndrome Sinusitis, acute Hyperreflexic Chief Complaint post lumbar lami bilateral involuntary hand twitching M54.2 DEANA/ANNUAL r79.89 e23.0 Reason for Visit BMI 40.0-44.9, adult Essential hypertension Fatty liver Mixed hyperlipidemia Obstructive sleep apnea of adult Prediabetes Generalized anxiety disorder with panic attacks Obstructive sleep apnea Postlaminectomy syndrome Sinusitis, acute Hyperreflexic Chronic insomnia CVA (cerebral vascular accident) Essential hypertension GERD (gastroesophageal reflux disease) Obstructive sleep apnea of adult Prediabetes Chief Complaint r79.89 e23.0 I10 R73.02 E78.00 Chief Complaint Admit Date r79.89 e23.0 February 23, 2024 11 :02am I10 R73.02 E78.00 May 02, 2024 1 0:51am 6 month f/u w/ fasting labs April 8:20am Reason for Visit Admit Date Chronic back pain May 06, 2024 8 :20am Chronic insomnia May 06, 2024 8 :20am Chronic kidney disease, stage 3 May 06, 2024 8:20am Chronic rhinitis May 06, 2024 8 :20am Coronary artery disease invo lving [place] coronary artery of [place] heart May 06, 2024 8:20am CVA (cerebral vascular accident) Novembe r 2023 8:20am Essential hypertension May 06 8:20am Generalized OA May 06, 2024 8 :20am GERD (gastroesophageal reflux disease) N ovember 2023 8:20am Migraines May 06, 2024 8 :20am Mixed hyperlipidemia May 06, 2024 8:20am 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 May 06, 2024 8:20am Morbid obesity May 06, 2024 8 :20am Need for antibiotic prophylaxis for dent al procedure May 06, 2024 8:20am Obstructive sleep apnea May 06 8:20am Prediabetes May 06, 2024 8 :20am Fatigue May 06, 2024 8 :20am Skin lesion May 06, 2024 8 :20am Chief Complaint Admit Date I10 R73.02 E78.00 May 02, 2024 1 0:51am 6 month f/u w/ fasting labs April 8:20am FATTY LIVER June 09, 2024 12:16pm Reason for Visit Admit Date Chronic back pain May 06, 2024 8 :20am Chronic insomnia May 06, 2024 8 :20am Chronic kidney disease, stage 3 May 06, 2024 8:20am Chronic rhinitis May 06, 2024 8 :20am Coronary artery disease invo lving [place] coronary artery of [place] heart May 06, 2024 8:20am CVA (cerebral vascular accident) Novembe r 2023 8:20am Essential hypertension May 06 8:20am Generalized OA May 06, 2024 8 :20am GERD (gastroesophageal reflux disease) N ovember 2023 8:20am Migraines May 06, 2024 8 :20am Mixed hyperlipidemia May 06, 2024 8:20am 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 May 06, 2024 8:20am Morbid obesity May 06, 2024 8 :20am Need for antibiotic prophylaxis for dent al procedure May 06, 2024 8:20am Obstructive sleep apnea May 06 8:20am Prediabetes May 06, 2024 8 :20am Fatigue May 06, 2024 8 :20am Skin lesion May 06, 2024 8 :20am Essential hypertension May 18 10:05am Fatty liver May 18, 2024 10:05am Mixed hyperlipidemia May 18, 2024 10:05am Obesity, Class II, BMI 35-39.9 May 18, 2024 10:05am Osteoarthritis of knee May 18 10:05am Prediabetes May 18, 2024 10:05am Chief Complaint Admit Date 6 month f/u w/ fasting labs April 8:20am FATTY LIVER June 09, 2024 12:16pm deana/ 6 months August 01, 2024 9 :59am Reason for Visit Admit Date Chronic back pain May 06, 2024 8 :20am Chronic insomnia May 06, 2024 8 :20am Chronic kidney disease, stage 3 May 06, 2024 8:20am Chronic rhinitis May 06, 2024 8 :20am Coronary artery disease invo lving [place] coronary artery of [place] heart May 06, 2024 8:20am CVA (cerebral vascular accident) Novembe r 2023 8:20am Essential hypertension May 06 8:20am Generalized OA May 06, 2024 8 :20am GERD (gastroesophageal reflux disease) N ov2023 8:20am Migraines May 06, 2024 8 :20am Mixed hyperlipidemia May 06, 2024 8:20am 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 May 06, 2024 8:20am Morbid obesity May 06, 2024 8 :20am Need for antibiotic prophylaxis for dent al procedure May 06, 2024 8:20am Obstructive sleep apnea May 06 8:20am Prediabetes May 06, 2024 8 :20am Fatigue May 06, 2024 8 :20am Skin lesion May 06, 2024 8 :20am Essential hypertension May 18 10:05am Fatty liver May 18, 2024 10:05am Mixed hyperlipidemia May 18, 2024 10:05am Obesity, Class II, BMI 35-39.9 May 18, 2024 10:05am Osteoarthritis of knee May 18 10:05am Prediabetes May 18, 2024 10:05am BMI 40.0-44.9, adult July 28, 2024 12:50pm Coronary artery disease invo lving [place] coronary artery of [place] heart July 28, 2024 12:50pm Essential hypertension July 28 12:50pm Fatty liver July 28, 2024 1 2:50pm Mixed hyperlipidemia July 28, 2024 12:50pm Obstructive sleep apnea July 28 12:50pm Prediabetes July 28, 2024 1 2:50pm Chronic insomnia August 01, 2024 9 :59am CVA (cerebral vascular accident) 2024 9:59am Essential hypertension August 01 9:59am GERD (gastroesophageal reflux disease) F ru2024 9:59am Obstructive sleep apnea of adult 2024 9:59am Prediabetes August 01, 2024 9 :59am Chief Complaint Admit Date FATTY LIVER June 09, 2024 12:16pm deana/ 6 months August 01, 2024 9 :59am poss sinus infection August 18, 2024 11:33am Reason for Visit Admit Date BMI 40.0-44.9, adult July 28, 2024 12:50pm Coronary artery disease invo lving [place] coronary artery of [place] heart July 28, 2024 12:50pm Essential hypertension July 28 12:50pm Fatty liver July 28, 2024 1 2:50pm Mixed hyperlipidemia July 28, 2024 12:50pm Obstructive sleep apnea July 28 12:50pm Prediabetes July 28, 2024 1 2:50pm BMI 39.0-39.9,adult August 01, 2024 9 :59am Chronic insomnia August 01, 2024 9 :59am CVA (cerebral vascular accident) 2024 9:59am Essential hypertension August 01 9:59am Excessive daytime sleepiness July 9:59am GERD (gastroesophageal reflux disease) F ebruary 2024 9:59am Intolerance to BiPAP/CPAP August 01, 2024 9:59am Obstructive sleep apnea of adult 2024 9:59am Prediabetes August 01, 2024 9 :59am Chief Complaint Admit Date FATTY LIVER June 09, 2024 12:16pm deana/ 6 months August 01, 2024 9 :59am poss sinus infection August 18, 2024 11:33am R79.899 E23.0 August 31, 2024 9:01 am Reason for Visit Admit Date BMI 40.0-44.9, adult July 28, 2024 12:50pm Coronary artery disease invo [place]ving [place] coronary artery of [place] heart July 28, 2024 12:50pm Essential hypertension July 28 12:50pm Fatty liver July 28, 2024 1 2:50pm Mixed hyperlipidemia July 28, 2024 12:50pm Obstructive sleep apnea July 28 12:50pm Prediabetes July 28, 2024 1 2:50pm BMI 39.0-39.9,adult August 01, 2024 9 :59am Chronic insomnia August 01, 2024 9 :59am CVA (cerebral vascular accident) 2024 9:59am Essential hypertension August 01 9:59am Excessive daytime sleepiness July 9:59am GERD (gastroesophageal reflux disease) F ebruary 2024 9:59am Intolerance to BiPAP/CPAP August 01, 2024 9:59am Obstructive sleep apnea of adult 2024 9:59am Prediabetes August 01, 2024 9 :59am Chronic headaches August 18, 2024 11:33am Chronic rhinitis August 18, 2024 11:33am CVA (cerebral vascular accident) 2024 11:33am Sinusitis, acute August 18, 2024 11:33am Chief Complaint Admit Date deana/ 6 months August 01, 2024 9 :59am poss sinus infection August 18, 2024 11:33am R79.899 E23.0 August 31, 2024 9:01 am 6-8 week September 28, 2024 2:30 pm Chief Complaint Admit Date deana/ 6 months August 01, 2024 9 :59am poss sinus infection August 18, 2024 11:33am R79.899 E23.0 August 31, 2024 9:01 am 6-8 week September 28, 2024 2:30 pm E78.00, I10, R73.02 (pass [place]) September 8:02am Reason for Visit Admit Date BMI 40.0-44.9, adult July 28, 2024 12:50pm Coronary artery disease invo [place]ving [place] coronary artery of [place] heart July 28, 2024 12:50pm Essential hypertension July 28 12:50pm Fatty liver July 28, 2024 1 2:50pm Mixed hyperlipidemia July 28, 2024 12:50pm Obstructive sleep apnea July 28 12:50pm Prediabetes July 28, 2024 1 2:50pm BMI 39.0-39.9,adult August 01, 2024 9 :59am Chronic insomnia August 01, 2024 9 :59am CVA (cerebral vascular accident) 2024 9:59am Essential hypertension August 01 9:59am Excessive daytime sleepiness July 9:59am GERD (gastroesophageal reflux disease) F ebruary 2024 9:59am Intolerance to BiPAP/CPAP August 01, 2024 9:59am Obstructive sleep apnea of adult 2024 9:59am Prediabetes August 01, 2024 9 :59am Chronic headaches August 18, 2024 11:33am Chronic rhinitis August 18, 2024 11:33am CVA (cerebral vascular accident) 2024 11:33am Sinusitis, acute August 18, 2024 11:33am BMI 40.0-44.9, adult September 28, 2024 2:3 0pm Essential hypertension September 28, 2024 2 :30pm Fatty liver September 28, 2024 2:30 pm Obstructive sleep apnea of adult September [id number] 2:30pm Osteoarthritis of knee September 28, 2024 2 :30pm Prediabetes September 28, 2024 2:30 pm Chief Complaint Admit Date poss sinus infection August 18, 2024 11:33am R79.899 E23.0 August 31, 2024 9:01 am 6-8 week September 28, 2024 2:30 pm E78.00, I10, R73.02 (pass [place]) September 8:02am 6 month f/u w/ fasting labs October 31 1:28pm DEANA/INSOMNIA November 07, 2024 9:09a m Reason for Visit Admit Date Chronic headaches August 18, 2024 11:33am Chronic rhinitis August 18, 2024 11:33am CVA (cerebral vascular accident) Februar y 2024 11:33am Sinusitis, acute August 18, 2024 11:33am BMI 40.0-44.9, adult September 28, 2024 2:3 0pm Essential hypertension September 28, 2024 2 :30pm Fatty liver September 28, 2024 2:30 pm Obstructive sleep apnea of adult September [id number] 2:30pm Osteoarthritis of knee September 28, 2024 2 :30pm Prediabetes September 28, 2024 2:30 pm Chronic back pain October 31, 2024 1:28pm Chronic headaches October 31, 2024 1:28pm Chronic kidney disease, stage 3 October 31, 2024 1:28pm Chronic rhinitis October 31, 2024 1:28pm Coronary artery disease invo [place]ving [place] coronary artery of [place] heart October 31, 2024 1:28pm CVA (cerebral vascular accident) October 1:28pm Essential hypertension October 31, 2024 1:2 8pm Fatty liver October 31, 2024 1:28pm Generalized OA October 31, 2024 1:28pm GERD (gastroesophageal reflux disease) M ay 2024 1:28pm Mixed hyperlipidemia October 31, 2024 1:28p m 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 October 31, 2024 1:28pm Obstructive sleep apnea October 31, 2024 1: 28pm Postlaminectomy syndrome October 31, 2024 1 :28pm Prediabetes October 31, 2024 1:28pm Stable angina October 31, 2024 1:28pm Atypical nevus of thoracic region October 1:28pm Scrotal mass October 31, 2024 1:28pm Acute constipation October 31, 2024 1:28pm Obesity, Class III, BMI 40-49.9 (morbid obesity) October 31, 2024 1:28pm BMI 39.0-39.9,adult November 07, 2024 9:09a m Chronic insomnia November 07, 2024 9:09a m CVA (cerebral vascular accident) October 122024 9:09am Essential hypertension November 07, 2024 9: 09am Excessive daytime sleepiness November 07, 2 025 9:09am GERD (gastroesophageal reflux disease) M ay 2024 9:09am Intolerance to BiPAP/CPAP November 07, 2024 9:09am Obstructive sleep apnea of adult October 122024 9:09am Prediabetes November 07, 2024 9:09a m Chief Complaint Admit Date R79.899 E23.0 August 31, 2024 9:01 am 6-8 week September 28, 2024 2:30 pm E78.00, I10, R73.02 (pass [place]) September 8:02am 6 month f/u w/ fasting labs October 31 1:28pm DEANA/INSOMNIA November 07, 2024 9:09a m N50.89 November 23, 2024 10:47 am Reason for Visit Admit Date BMI 40.0-44.9, adult September 28, 2024 2:3 0pm Essential hypertension September 28, 2024 2 :30pm Fatty liver September 28, 2024 2:30 pm Obstructive sleep apnea of adult September 282024 2:30pm Osteoarthritis of knee September 28, 2024 2 :30pm Prediabetes September 28, 2024 2:30 pm Chronic back pain October 31, 2024 1:28pm Chronic headaches October 31, 2024 1:28pm Chronic kidney disease, stage 3 October 31, 2024 1:28pm Chronic rhinitis October 31, 2024 1:28pm Coronary artery disease invo [place]ving [place] coronary artery of [place] heart October 31, 2024 1:28pm CVA (cerebral vascular accident) October 1:28pm Essential hypertension October 31, 2024 1:2 8pm Fatty liver October 31, 2024 1:28pm Generalized OA October 31, 2024 1:28pm GERD (gastroesophageal reflux disease) M ay 2024 1:28pm Mixed hyperlipidemia October 31, 2024 1:28p m 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 October 31, 2024 1:28pm Obstructive sleep apnea October 31, 2024 1: 28pm Postlaminectomy syndrome October 31, 2024 1 :28pm Prediabetes October 31, 2024 1:28pm Stable angina October 31, 2024 1:28pm Atypical nevus of thoracic region October 1:28pm Scrotal mass October 31, 2024 1:28pm Acute constipation October 31, 2024 1:28pm Obesity, Class III, BMI 40-49.9 (morbid obesity) October 31, 2024 1:28pm BMI 40.0-44.9, adult November 07, 2024 9:09 am Chronic insomnia November 07, 2024 9:09a m CVA (cerebral vascular accident) October 9:09am Essential hypertension November 07, 2024 9: 09am Excessive daytime sleepiness November 07, 2 025 9:09am GERD (gastroesophageal reflux disease) M ay 2024 9:09am Intolerance to BiPAP/CPAP November 07, 2024 9:09am Obstructive sleep apnea of adult October 9:09am Prediabetes November 07, 2024 9:09a m Chief Complaint Admit Date DEANA/INSOMNIA November 07, 2024 9:09a m N50.89 November 23, 2024 10:47 am s80.811a December 08, 2024 3:24 pm hurt RT leg/was at [facility] December 122024 2:50pm 2-3 month December 19, 2024 9:34 am Angina January 31, 2025 9:1 9am Reason for Visit Admit Date BMI 40.0-44.9, adult November 07, 2024 9:09 am Chronic insomnia November 07, 2024 9:09a m CVA (cerebral vascular accident) October 9:09am Essential hypertension November 07, 2024 9: 09am Excessive daytime sleepiness November 07, 2 025 9:09am GERD (gastroesophageal reflux disease) M ay 2024 9:09am Intolerance to BiPAP/CPAP November 07, 2024 9:09am Obstructive sleep apnea of adult October 9:09am Prediabetes November 07, 2024 9:09a m Abrasion, right lower leg, initial encou nter December 12, 2024 2:50pm Contusion of right lower leg December 12, 2024 2:50pm BMI 40.0-44.9, adult December 19, 2024 9:3 4am Essential hypertension December 19, 2024 9 :34am Fatty liver December 19, 2024 9:34 am Mixed hyperlipidemia December 19, 2024 9:3 4am Obstructive sleep apnea December 19, 2024 9:34am Prediabetes Shivani 23rd, 2025 9:34 am Chief Complaint Admit Date DEANA/INSOMNIA November 07, 2024 9:09a m N50.89 November 23, 2024 10:47 am s80.811a December 08, 2024 3:24 pm hurt RT leg/was at [facility] December 122024 2:50pm 2-3 month December 19, 2024 9:34 am Angina January 31, 2025 9:1 9am Angina February 02, 2025 10: 36am Chief Complaint Admit Date s80.811a December 08, 2024 3:24 pm hurt RT leg/was at [facility] December 122024 2:50pm 2-3 month December 19, [...] 9:34am Prediabetes December 19, 2024 9:34 am Chief Complaint MARY JIMENEZ is being seen [...] section and content) DATE CREATED AUTHOR 05/12/2020 [facility] DATE CREATED AUTHOR AUTHOR'S ORGANIZ ATION 04/02/2022 [facility] DATE CREATED AUTHOR AUTHOR'S ORGANIZ ATION 07/22/2022 [facility] DATE CREATED AUTHOR AUTHOR'S ORGANIZ ATION 07/22/2022 [facility] DATE CREATED AUTHOR AUTHOR'S ORGANIZ ATION 12/09/2022 [facility] DATE CREATED AUTHOR AUTHOR'S ORGANIZ ATION 01/27/2024 [facility] DATE CREATED AUTHOR AUTHOR'S ORGANIZ ATION 11/01/2024 [facility] DATE CREATED AUTHOR AUTHOR'S ORGANIZ ATION 11/25/2024 [facility] DATE CREATED AUTHOR AUTHOR'S ORGANIZ ATION 12/07/2024 [facility] DATE CREATED AUTHOR AUTHOR'S ORGANIZ ATION 01/29/2025 [facility] DATE CREATED AUTHOR AUTHOR'S ORGANIZ ATION 02/19/[address] [facility] DATE CREATED AUTHOR AUTHOR'S ORGANIZ ATION 02/24/2025 [facility] DATE CREATED AUTHOR AUTHOR'S ORGANIZ ATION 03/01/2025 [facility] Comments (unrecognize d section and content) In the event this informatio n is protected by the Federal Confidentiality of Alcohol and Drug Abuse Patient Records regulations: The Federal rules restrict any use of the information to criminally investigate or prosecute any alcohol or drug abuse patient.[facility] the event this information is protected by the Federal Confidentiality of Alcohol and Drug Abuse Patient Records regulations: The Federal rules restrict any use of the information to criminally investigate or prosecute any alcohol or drug abuse patient.[facility] CenterIn the event this information is protected by the Federal Confidentiality of Alcohol and Drug Abuse Patient Records regulations: The Federal rules restrict any use of the information to criminally investigate or prosecute any alcohol or drug abuse patient.[facility] CenterIn the event this information is protected by the Federal Confidentiality of Alcohol and Drug Abuse Patient Records regulations: The Federal rules restrict any use of the information to criminally investigate or prosecute any alcohol or drug abuse patient.[facility] CenterIn the event this information is protected by the Federal Confidentiality of Alcohol and Drug Abuse Patient Records regulations: The Federal rules restrict any use of the information to criminally investigate or prosecute any alcohol or drug abuse patient.[facility] CenterIn the event this information is protected by the Federal Confidentiality of Alcohol and Drug Abuse Patient Records regulations: The Federal rules restrict any use of the information to criminally investigate or prosecute any alcohol or drug abuse patient.[facility] CenterIn the event this information is protected by the Federal Confidentiality of Alcohol and Drug Abuse Patient Records regulations: The Federal rules restrict any use of the information to criminally investigate or prosecute any alcohol or drug abuse patient.[facility] CenterIn the event this information is protected by the Federal Confidentiality of Alcohol and Drug Abuse Patient Records regulations: The Federal rules restrict any use of the information to criminally investigate or prosecute any alcohol or drug abuse patient.[facility] CenterIn the event this information is protected by the Federal Confidentiality of Alcohol and Drug Abuse Patient Records regulations: The Federal rules restrict any use of the information to criminally investigate or prosecute any alcohol or drug abuse patient.[facility] CenterIn the event this information is protected by the Federal Confidentiality of Alcohol and Drug Abuse Patient Records regulations: The Federal rules restrict any use of the information to criminally investigate or prosecute any alcohol or drug abuse patient.[facility] CenterIn the event this information is protected by the Federal Confidentiality of Alcohol and Drug Abuse Patient Records regulations: The Federal rules restrict any use of the information to criminally investigate or prosecute any alcohol or drug abuse patient.[facility] CenterIn the event this information is protected by the Federal Confidentiality of Alcohol and Drug Abuse Patient Records regulations: The Federal rules restrict any use of the information to criminally investigate or prosecute any alcohol or drug abuse patient.[facility] CenterIn the event this information is protected by the Federal Confidentiality of Alcohol and Drug Abuse Patient Records regulations: The Federal rules restrict any use of the information to criminally investigate or prosecute any alcohol or drug abuse patient.[facility] CenterIn the event this information is protected by the Federal Confidentiality of Alcohol and Drug Abuse Patient Records regulations: The Federal rules restrict any use of the information to criminally investigate or prosecute any alcohol or drug abuse patient.[facility] CenterIn the event this information is protected by the Federal Confidentiality of Alcohol and Drug Abuse Patient Records regulations: The Federal rules restrict any use of the information to criminally investigate or prosecute any alcohol or drug abuse patient.[facility] CenterIn the event this information is protected by the Federal Confidentiality of Alcohol and Drug Abuse Patient Records regulations: The Federal rules restrict any use of the information to criminally investigate or prosecute any alcohol or drug abuse patient.[facility] CenterIn the event this information is protected by the Federal Confidentiality of Alcohol and Drug Abuse Patient Records regulations: The Federal rules restrict any use of the information to criminally investigate or prosecute any alcohol or drug abuse patient.[facility] CenterIn the event this information is protected by the Federal Confidentiality of Alcohol and Drug Abuse Patient Records regulations: The Federal rules restrict any use of the information to criminally investigate or prosecute any alcohol or drug abuse patient.[facility] CenterIn the event this information is protected by the Federal Confidentiality of Alcohol and Drug Abuse Patient Records regulations: The Federal rules restrict any use of the information to criminally investigate or prosecute any alcohol or drug abuse patient.[facility] CenterIn the event this information is protected by the Federal Confidentiality of Alcohol and Drug Abuse Patient Records regulations: The Federal rules restrict any use of the information to criminally investigate or prosecute any alcohol or drug abuse patient.[facility] CenterIn the event this information is protected by the Federal Confidentiality of Alcohol and Drug Abuse Patient Records regulations: The Federal rules restrict any use of the information to criminally investigate or prosecute any alcohol or drug abuse patient.[facility] CenterIn the event this information is protected by the Federal Confidentiality of Alcohol and Drug Abuse Patient Records regulations: The Federal rules restrict any use of the information to criminally investigate or prosecute any alcohol or drug abuse patient.[facility] CenterIn the event this information is protected by the Federal Confidentiality of Alcohol and Drug Abuse Patient Records regulations: The Federal rules restrict any use of the information to criminally investigate or prosecute any alcohol or drug abuse patient.[facility] CenterIn the event this information is protected by the Federal Confidentiality of Alcohol and Drug Abuse Patient Records regulations: The Federal rules restrict any use of the information to criminally investigate or prosecute any alcohol or drug abuse patient.[facility] CenterIn the event this information is protected by the Federal Confidentiality of Alcohol and Drug Abuse Patient Records regulations: The Federal rules restrict any use of the information to criminally investigate or prosecute any alcohol or drug abuse patient.[facility] CenterIn the event this information is protected by the Federal Confidentiality of Alcohol and Drug Abuse Patient Records regulations: The Federal rules restrict any use of the information to criminally investigate or prosecute any alcohol or drug abuse patient.[facility] CenterIn the event this information is protected by the Federal Confidentiality of Alcohol and Drug Abuse Patient Records regulations: The Federal rules restrict any use of the information to criminally investigate or prosecute any alcohol or drug abuse patient.[facility] CenterIn the event this information is protected by the Federal Confidentiality of Alcohol and Drug Abuse Patient Records regulations: The Federal rules restrict any use of the information to criminally investigate or prosecute any alcohol or drug abuse patient.[facility] CenterIn the event this information is protected by the Federal Confidentiality of Alcohol and Drug Abuse Patient Records regulations: The Federal rules restrict any use of the information to criminally investigate or prosecute any alcohol or drug abuse patient.[facility] CenterIn the event this information is protected by the Federal Confidentiality of Alcohol and Drug Abuse Patient Records regulations: The Federal rules restrict any use of the information to criminally investigate or prosecute any alcohol or drug abuse patient.[facility] CenterIn the event this information is protected by the Federal Confidentiality of Alcohol and Drug Abuse Patient Records regulations: The Federal rules restrict any use of the information to criminally investigate or prosecute any alcohol or drug abuse patient.[facility] CenterIn the event this information is protected by the Federal Confidentiality of Alcohol and Drug Abuse Patient Records regulations: The Federal rules restrict any use of the information to criminally investigate or prosecute any alcohol or drug abuse patient.[facility] CenterIn the event this information is protected by the Federal Confidentiality of Alcohol and Drug Abuse Patient Records regulations: The Federal rules restrict any use of the information to criminally investigate or prosecute any alcohol or drug abuse patient.[facility] CenterIn the event this information is protected by the Federal Confidentiality of Alcohol and Drug Abuse Patient Records regulations: The Federal rules restrict any use of the information to criminally investigate or prosecute any alcohol or drug abuse patient.[facility] CenterIn the event this information is protected by the Federal Confidentiality of Alcohol and Drug Abuse Patient Records regulations: The Federal rules restrict any use of the information to criminally investigate or prosecute any alcohol or drug abuse patient.[facility] CenterIn the event this information is protected by the Federal Confidentiality of Alcohol and Drug Abuse Patient Records regulations: The Federal rules restrict any use of the information to criminally investigate or prosecute any alcohol or drug abuse patient.[facility] CenterIn the event this information is protected by the Federal Confidentiality of Alcohol and Drug Abuse Patient Records regulations: The Federal rules restrict any use of the information to criminally investigate or prosecute any alcohol or drug abuse patient.[facility] CenterIn the event this information is protected by the Federal Confidentiality of Alcohol and Drug Abuse Patient Records regulations: The Federal rules restrict any use of the information to criminally investigate or prosecute any alcohol or drug abuse patient.[facility] CenterIn the event this information is protected by the Federal Confidentiality of Alcohol and Drug Abuse Patient Records regulations: The Federal rules restrict any use of the information to criminally investigate or prosecute any alcohol or drug abuse patient.[facility] CenterIn the event this information is protected by the Federal Confidentiality of Alcohol and Drug Abuse Patient Records regulations: The Federal rules restrict any use of the information to criminally investigate or prosecute any alcohol or drug abuse patient.[facility] CenterIn the event this information is protected by the Federal Confidentiality of Alcohol and Drug Abuse Patient Records regulations: The Federal rules restrict any use of the information to criminally investigate or prosecute any alcohol or drug abuse patient.[facility] CenterIn the event this information is protected by the Federal Confidentiality of Alcohol and Drug Abuse Patient Records regulations: The Federal rules restrict any use of the information to criminally investigate or prosecute any alcohol or drug abuse patient.[facility] CenterIn the event this information is protected by the Federal Confidentiality of Alcohol and Drug Abuse Patient Records regulations: The Federal rules restrict any use of the information to criminally investigate or prosecute any alcohol or drug abuse patient.[facility] CenterIn the event this information is protected by the Federal Confidentiality of Alcohol and Drug Abuse Patient Records regulations: The Federal rules restrict any use of the information to criminally investigate or prosecute any alcohol or drug abuse patient.[facility] CenterIn the event this information is protected by the Federal Confidentiality of Alcohol and Drug Abuse Patient Records regulations: The Federal rules restrict any use of the information to criminally investigate or prosecute any alcohol or drug abuse patient.[facility] CenterIn the event this information is protected by the Federal Confidentiality of Alcohol and Drug Abuse Patient Records regulations: The Federal rules restrict any use of the information to criminally investigate or prosecute any alcohol or drug abuse patient.[facility] CenterIn the event this information is protected by the Federal Confidentiality of Alcohol and Drug Abuse Patient Records regulations: The Federal rules restrict any use of the information to criminally investigate or prosecute any alcohol or drug abuse patient.[facility] CenterIn the event this information is protected by the Federal Confidentiality of Alcohol and Drug Abuse Patient Records regulations: The Federal rules restrict any use of the information to criminally investigate or prosecute any alcohol or drug abuse patient.[facility] CenterIn the event this information is protected by the Federal Confidentiality of Alcohol and Drug Abuse Patient Records regulations: The Federal rules restrict any use of the information to criminally investigate or prosecute any alcohol or drug abuse patient.[facility] CenterIn the event this information is protected by the Federal Confidentiality of Alcohol and Drug Abuse Patient Records regulations: The Federal rules restrict any use of the information to criminally investigate or prosecute any alcohol or drug abuse patient.[facility] CenterIn the event this information is protected by the Federal Confidentiality of Alcohol and Drug Abuse Patient Records regulations: The Federal rules restrict any use of the information to criminally investigate or prosecute any alcohol or drug abuse patient.[facility] CenterIn the event this information is protected by the Federal Confidentiality of Alcohol and Drug Abuse Patient Records regulations: The Federal rules restrict any use of the information to criminally investigate or prosecute any alcohol or drug abuse patient.[facility] CenterIn the event this information is protected by the Federal Confidentiality of Alcohol and Drug Abuse Patient Records regulations: The Federal rules restrict any use of the information to criminally investigate or prosecute any alcohol or drug abuse patient.[facility] CenterIn the event this information is protected by the Federal Confidentiality of Alcohol and Drug Abuse Patient Records regulations: The Federal rules restrict any use of the information to criminally investigate or prosecute any alcohol or drug abuse patient.[facility] CenterIn the event this information is protected by the Federal Confidentiality of Alcohol and Drug Abuse Patient Records regulations: The Federal rules restrict any use of the information to criminally investigate or prosecute any alcohol or drug abuse patient.[facility] CenterIn the event this information is protected by the Federal Confidentiality of Alcohol and Drug Abuse Patient Records regulations: The Federal rules restrict any use of the information to criminally investigate or prosecute any alcohol or drug abuse patient.[facility] CenterIn the event this information is protected by the Federal Confidentiality of Alcohol and Drug Abuse Patient Records regulations: The Federal rules restrict any use of the information to criminally investigate or prosecute any alcohol or drug abuse patient.[facility] CenterIn the event this information is protected by the Federal Confidentiality of Alcohol and Drug Abuse Patient Records regulations: The Federal rules restrict any use of the information to criminally investigate or prosecute any alcohol or drug abuse patient.[facility] CenterIn the event this information is protected by the Federal Confidentiality of Alcohol and Drug Abuse Patient Records regulations: The Federal rules restrict any use of the information to criminally investigate or prosecute any alcohol or drug abuse patient.[facility] CenterIn the event this information is protected by the Federal Confidentiality of Alcohol and Drug Abuse Patient Records regulations: The Federal rules restrict any use of the information to criminally investigate or prosecute any alcohol or drug abuse patient.[facility] CenterIn the event this information is protected by the Federal Confidentiality of Alcohol and Drug Abuse Patient Records regulations: The Federal rules restrict any use of the information to criminally investigate or prosecute any alcohol or drug abuse patient.[facility] CenterIn the event this information is protected by the Federal Confidentiality of Alcohol and Drug Abuse Patient Records regulations: The Federal rules restrict any use of the information to criminally investigate or prosecute any alcohol or drug abuse patient.[facility] CenterIn the event this information is protected by the Federal Confidentiality of Alcohol and Drug Abuse Patient Records regulations: The Federal rules restrict any use of the information to criminally investigate or prosecute any alcohol or drug abuse patient.[facility] CenterIn the event this information is protected by the Federal Confidentiality of Alcohol and Drug Abuse Patient Records regulations: The Federal rules restrict any use of the information to criminally investigate or prosecute any alcohol or drug abuse patient.[facility] CenterIn the event this information is protected by the Federal Confidentiality of Alcohol and Drug Abuse Patient Records regulations: The Federal rules restrict any use of the information to criminally investigate or prosecute any alcohol or drug abuse patient.[facility] CenterIn the event this information is protected by the Federal Confidentiality of Alcohol and Drug Abuse Patient Records regulations: The Federal rules restrict any use of the information to criminally investigate or prosecute any alcohol or drug abuse patient.[facility] CenterIn the event this information is protected by the Federal Confidentiality of Alcohol and Drug Abuse Patient Records regulations: The Federal rules restrict any use of the information to criminally investigate or prosecute any alcohol or drug abuse patient.[facility] CenterIn the event this information is protected by the Federal Confidentiality of Alcohol and Drug Abuse Patient Records regulations: The Federal rules restrict any use of the information to criminally investigate or prosecute any alcohol or drug abuse patient.[facility] CenterIn the event this information is protected by the Federal Confidentiality of Alcohol and Drug Abuse Patient Records regulations: The Federal rules restrict any use of the information to criminally investigate or prosecute any alcohol or drug abuse patient.[facility] CenterIn the event this information is protected by the Federal Confidentiality of Alcohol and Drug Abuse Patient Records regulations: The Federal rules restrict any use of the information to criminally investigate or prosecute any alcohol or drug abuse patient.[facility] CenterIn the event this information is protected by the Federal Confidentiality of Alcohol and Drug Abuse Patient Records regulations: The Federal rules restrict any use of the information to criminally investigate or prosecute any alcohol or drug abuse patient.[facility] CenterIn the event this information is protected by the Federal Confidentiality of Alcohol and Drug Abuse Patient Records regulations: The Federal rules restrict any use of the information to criminally investigate or prosecute any alcohol or drug abuse patient.[facility] Care Teams (unrecognized sec tion and content) Team Status: Active Member Role Status Dates Jose Valdovinos DO Primary Care Provider Active Team Status: Inactive Member Role Status Dates Jose Valdovinos DO Primary Care Provider Active St art: July 28, 2024 End: July 28, 2024 Rafael Holbrook MD Attending Provider Active Start: July 28, 2024 End: July 28, 2024 Team Status: Inactive Member Role Status Dates Jose Valdovinos DO Primary Care Provider Active St art: August 01, 2024 End: August 01, 2024 Fernanda Graham NP Attending Provider Active Start: August 01, 2024 End: August 01, 2024 Team Status: Inactive Member Role Status Dates Jose Valdovinos DO Primary Care Provide r, Attending Provider Active Start: August 18, 2024 End: August 18, 2024 Team Status: Inactive Member Role Status Dates Jose Valdovinos DO Primary Care Provider Active St art: August 31, 2024 End: August 31, 2024 Rosey Dubose MD Attending Provider Active Sta rt: August 31, 2024 End: August 31, 2024 Team Status: Inactive Member Role Status Dates Jose Valdovinos DO Primary Care Provider Active St art: September 28, 2024 End: September 28, 2024 Rafael Holbrook MD Attending Provider Active Start: September 28, 2024 End: September 28, 2024 Team Status: Active Member Role Status Dates Jose Valdovinos DO Primary Care Provider Active St art: June 09, 2024 Rafael Holbrook MD Referring Provider Active Start: June 09, 2024 Chalo Linares APRN Other Provider Active St art: June 09, 2024 Jayme Salazar MD Attending Provider Active S tart: June 09, 2024 Team Status: Inactive Member Role Status Dates Jose Valdovinos DO Primary Care Provider Active Fernanda Graham [...] Care Provider, Attending Prov ider Active Se Rodriges MD Referring Provider Active Team Status: Inactive Member Role Status Dates Jose Oberer , DO Primary Care Provider Active Olvin Andino , DO Attending Provider Active Team Status: Inactive Member Role Status Dates Jose Oberer , DO Primary Care Provider, Attending Prov ider Active Team Status: Inactive Member Role Status Dates Jose Oberer , DO Primary Care Provider Active Rafael Zheng , DO Attending Provider Active Team Status: Inactive Member Role Status Dates Jose Oberer , DO Primary Care Provider Active Alejandro Ruvalcaba , DO Emergency Provider Active Director Human Services Relationship Specialty Start Date End Date Jose Valdovinos [address] [place], [place] [id number] PCP - General 02/04/10 Director Human Services Relationship Specialty Start Date End Date Jose Valdovinos [address] [place], [place] [id number] PCP - General 02/04/10 Director Human Services Relationship Specialty Start Date End Date Jose Valdovinos [address] [place], [place] [id number] PCP - General 02/04/10 Director Human Services Relationship Specialty Start Date End Date Jose Valdovinos [address] [place], [place] [id number] PCP - General 02/04/10 Director Human Services Relationship Specialty Start Date End Date Jose Valdovinos [address] [place], [place] [id number] PCP - General 02/04/10 Director Human Services Relationship Specialty Start Date End Date ObJose contreras [address] [place], [place] [id number] PCP - General 02/04/10 Director Human Services Relationship Specialty Start Date End Date Jose Valdovinos [address] [facility] [place] [address] PCP - General 02/04/10 Director Human Services Relationship Specialty Start Date End Date Jose Valdovinos [address] [facility] [place] [address] PCP - General 02/04/10 Director Human Services Relationship Specialty Start Date End Date Jose Valdovinos [facility] [place] [place] [address] PCP - General 02/04/10 Director Human Services Relationship Specialty Start Date End Date Jose Valdovinos [facility] [place] [address] PCP - General 02/04/10 Director Human Services Relationship Specialty Start Date End Date Jose Valdovinos [address] [facility] [place] [address] PCP - General 02/04/10 Director Human Services Relationship Specialty Start Date End Date Jose Valdovinos [address] [facility] [place] [address] PCP - General 02/04/10 Director Human Services Relationship Specialty Start Date End Date Jose Valdovinos [address] [place] [address] PCP - General 02/04/10 Director Human Services Relationship Specialty Start Date End Date Jose Valdovinos [address] [facility] [place] [place] [address] PCP - General 02/04/10 Director Human Services Relationship Specialty Start Date End Date Jose Valdovinos [address] [place] [address] PCP - General 02/04/10 Director Human Services Relationship Specialty Start Date End Date Jose Valdovinos [address] [place] [address] PCP - General 02/04/10 Director Human Services Relationship Specialty Start Date End Date Jose Valdovinos [address] [place] [address] PCP - General 02/04/10 Director Human Services Relationship Specialty Start Date End Date Jose Valdovinos [address] [place] [address] PCP - General 02/04/10 Director Human Services Relationship Specialty Start Date End Date Jose Valdovinos [address] [place] [address] PCP - General 02/04/10 Director Human Services Relationship Specialty Start Date End Date Jose Valdovinos [address] [place], [place] [id number] PCP - General 02/04/10 Team Status: Inactive Member Role Status Dates Fernanda Graham NP Other Provider Active Jose Isabellmegan , DO Primary Care Provider, Other Provider Active Loyda Steele MD Attending Provider Active Rosey Dubose MD Other Provider Active Team Status: Inactive Member Role Status Dates PHYSICIAN NO FAMILY Primary Care Provider Active Laura Beltran PA-C Attending Provider Active Team Status: Inactive Member Role Status Dates Yobany Nelson MD Attending Provider Active Team Status: Inactive Member Role Status Dates Jose Valdovinos , DO Primary Care Provider Active Yobany Nelson MD Attending Provider Active Director Human Services Relationship Specialty Start Date End Date Jose Valdovinos [address] [place] [address] PCP - General 02/04/10 Director Human Services Relationship Specialty Start Date End Date Jose Valdovinos [address] [place] [address] PCP - General 02/04/10 Director Human Services Relationship Specialty Start Date End Date Jose Valdovinos [address] [place] [id number] PCP - General 02/04/10 Team Status: Inactive Member Role Status Dates Jose Whyter , DO Primary Care Provider Active Laura Beltran PA-C Attending Provider Active Director Human Services Relationship Specialty Start Date End Date Jose Valdovinos [facility] [place] [id number] PCP - General 02/04/10 Director Human Services Relationship Specialty Start Date End Date Jose Valdovinos [address] [place], [place] [id number] PCP - General 02/04/10 Team Status: Active Member Role Status Dates Jose Whyter , DO Primary Care Provider Active Amarilis Jameson PA-C Emergency Provider Active Cathy Zavala MD Admit Provider, Attending Provider Active Team Status: Active Member Role Status Dates Jose Reveleserer , DO Primary Care Provider Active Loyda Steele MD Attending Provider Active Team Status: Inactive Member Role Status Dates Jose Reveleserer , DO Primary Care Provider Active Amarilis Jameson PA-C Emergency Provider Active Cathy Zavala MD Admit Provider, Attending Provider Active Fabiola Montemayor Other Provider Active Christine Bryson , DO Other Provider Active Se Rodriges MD Other Provider Active Cornel Carson , DO Other Provider Active Marci Clark ANP- Other Provider Active Ortega Haskins , [...] Status: Inactive Member Role Status Dates Jose Valdovinos DO Primary Care Provider Active Rafael Zheng DO Attending Provider Active Loyda Steele MD Other Provider Active Team Status: Inactive Member Role Status Dates Jose Valdovinos DO Primary Care Provider Active Loyda Steele MD Attending Provider Active Team Status: Inactive Member Role Status Dates Jose Valdovinos DO Primary Care Provider Active Rosey Dubose MD Attending Provider Active Team Status: Inactive Member Role Status Dates Raquel Fitt - Refer , [facility] Attending Provider Active Start: April 30, 2023 End: April 30, 2023 Team Status: Inactive Member Role Status Dates Jose Valdovinos DO Attending Provider Active Start : May 01, 2023 End: May 01, 2023 Team Status: Inactive Member Role Status Dates Raquel Fitt - Refer , [facility] Attending Provider Active Start: June 18, 2023 End: June 18, 2023 Team Status: Inactive Member Role Status Dates Raquel Fitt - Refer , [facility] Attending Provider Active Start: July 07, 2023 End: July 07, 2023 Team Status: Inactive Member Role Status Dates Rafael Holbrook MD Attending Provider Active Start: July 13, 2023 End: July 13, 2023 Team Status: Active Member Role Status Dates Jose Valdovinos DO Primary Care Provide r, Attending Provider Active Start: July 22, 2023 Team Status: Inactive Member Role Status Dates Jose Valdovinos DO Primary Care Provider Active St art: July 28, 2023 End: July 28, 2023 John Soto MD Attending Provider Active Start: July 28, 2023 End: July 28, 2023 Team Status: Inactive Member Role Status Dates Jose Valdovinos DO Primary Care Provider Active St art: July 30, 2023 End: July 30, 2023 John Soto MD Attending Provider Active Start: July 30, 2023 End: July 30, 2023 Team Status: Inactive Member Role Status Dates John Soto MD Attending Provider Active Start: July 16, 2023 End: July 16, 2023 Team Status: Inactive Member Role Status Dates Jose Valdovinos DO Attending Provider Active Start : July 30, 2023 End: July 30, 2023 Team Status: Active Member Role Status Dates Jose Valdovinos DO Primary Care Provide r, Attending Provider Active Start: August 06, 2023 Team Status: Inactive Member Role Status Dates Jose Valdovinos DO Primary Care Provider Active St art: August 19, 2023 End: August 19, 2023 John Soto MD Attending Provider Active Start: August 19, 2023 End: August 19, 2023 Team Status: Active Member Role Status Dates Jose Valdovinos DO Primary Care Provider Active St art: August 19, 2023 John Soto MD Attending Prov ider, Other Provider Active Start: August 19, 2023 Director Human Services Relationship Specialty Start Date End Date Bonifacio Joseida Crain DO PCP - General 05/09/20 Team Status: Inactive Member Role Status Dates Jose Valdovinos DO Primary Care Provider Active St art: August 24, 2023 End: August 24, 2023 Helena Posey NP-C Attending Provider Active Start: August 24, 2023 End: August 24, 2023 Team Status: Inactive Member Role Status Dates Jose Valdovinos DO Primary Care Provider Active St art: August 26, 2023 End: August 26, 2023 John Soto MD Attending Provider Active Start: August 26, 2023 End: August 26, 2023 Team Status: Inactive Member Role Status Dates Jose Valdovinos DO Primary Care Provider Active St art: September 28, 2023 End: September 28, 2023 SEGUNDO Nunn Attending Provider Active S tart: September 28, 2023 End: September 28, 2023 Team Status: Inactive Member Role Status Dates Jose Valdovinos DO Primary Care Provider Active St art: October 01, 2023 End: October 01, 2023 Rafael Holbrook MD Attending Provider Active Start: October 01, 2023 End: October 01, 2023 Director Human Services Relationship Specialty Start Date End Date Jose Valdovinos DO [address] [place] [address] PCP - General 02/04/10 Team Status: Inactive Member Role Status Dates Jose Oberer , DO Primary Care Provider Active St art: October 08, 2023 End: October 08, 2023 Helena Posey NP-C Attending Provider Active Start: October 08, 2023 End: October 08, 2023 Team Status: Active Member Role Status Dates Jose Obgustabor , DO Primary Care Provider Active St art: October 08, 2023 Anika Botello LPN Attending Provider Active Start: October 08, 2023 Team Status: Inactive Member Role Status Dates Jose Oberer , DO Primary Care Provide r, Attending Provider Active Start: October 24, 2023 End: October 24, 2023 Team Status: Inactive Member Role Status Dates Jose Oberer , DO Primary Care Provide r, Attending Provider Active Start: October 30, 2023 End: October 30, 2023 Team Status: Inactive Member Role Status Dates Jose Oberer , DO Primary Care Provide r, Attending Provider Active Start: November 09, 2023 End: November 09, 2023 Team Status: Inactive Member Role Status Dates Jose Oberer , DO Primary Care Provider Active St art: December 10, 2023 End: December 10, 2023 Rafael Holbrook MD Attending Provider Active Start: December 10, 2023 End: December 10, 2023 Team Status: Inactive Member Role Status Dates Jose Obgustabor , DO Primary Care Provider Active St art: January 13, 2024 End: January 13, 2024 Justyna Martinez NP-C Attending Provider Active St art: January 13, 2024 End: January 13, 2024 Team Status: Active Member Role Status Dates Jose Oberer , DO Primary Care Provide r, Attending Provider Active Start: January 25, 2024 Team Status: Inactive Member Role Status Dates Jose Oberer , DO Primary Care Provide r, Attending Provider Active Start: January 26, 2024 End: January 26, 2024 Team Status: Active Member Role Status Dates Jose Oberer , DO Primary Care Provide r, Attending Provider Active Start: January 26, 2024 Team Status: Inactive Member Role Status Dates Jose Oberer , DO Primary Care Provider Active St art: February 01, 2024 End: February 01, 2024 Fernanda Graham NP Attending Provider Active Start: February 01, 2024 End: February 01, 2024 Team Status: Inactive Member Role Status Dates Jose Valdovinos DO Primary Care Provider Active St art: February 23, 2024 End: February 23, 2024 Jhonny Kaminski MD Attending Provider Active Start : February 23, 2024 End: February 23, 2024 Director Human Services Relationship Specialty Start Date End Date Jose Valdovinos DO [address] [place] [address] PCP - General 02/04/10 Director Human Services Relationship Specialty Start Date End Date Jose Valdovinos [facility] [address] [facility] [place] [id number] PCP - General Family Medicine 10/29/23 Director Human Services Relationship Specialty Start Date End Date Jose Valdovinos MD [address] [facility] [place] [id number] PCP - General Family Medicine 10/29/23 Team Status: Inactive Member Role Status Dates Jose Valdovinos DO Primary Care Provide r, Attending Provider Active Start: May 02, 2024 End: May 02, 2024 Team Status: Inactive Member Role Status Dates Jose Valdovinos DO Primary Care Provide r, Attending Provider Active Start: May 06, 2024 End: May 06, 2024 Director Human Services Relationship Specialty Start Date End Date Jose Valdovinos MD [address] [facility] [place] [place] [address] PCP - General Family Medicine 10/29/23 Team Status: Inactive Member Role Status Dates Jose Valdovinos DO Primary Care Provider Active St art: May 18, 2024 End: May 18, 2024 Rafael Holbrook MD Attending Provider Active Start: May 18, 2024 End: May 18, 2024 Director Human Services Relationship Specialty Start Date End Date Jose Valdovinos MD [address] [place] [id number] PCP - General Family Medicine 10/29/23 Director Human Services Relationship Specialty Start Date End Date Jose Valdovinos MD [address] [place] [id number] PCP - General Family Medicine 10/29/23 Director Human Services Relationship Specialty Start Date End Date Jose Valdovinos MD [address] [place] [address] PCP - General Family Medicine 10/29/23 Director Human Services Relationship Specialty Start Date End Date Jose Valdovinos MD [address] [place] [address] PCP - General Family Medicine 10/29/23 Director Human Services Relationship Specialty Start Date End Date Jose Valdovinos MD [address] [place] [address] PCP - General Family Medicine 10/29/23 Director Human Services Relationship Specialty Start Date End Date Jose Valdovinos MD [address] [place] [address] PCP - General Family Medicine 10/29/23 Director Human Services Relationship Specialty Start Date End Date Jose Valdovinos MD [address] [place] [address] PCP - General Family Medicine 10/29/23 Director Human Services Relationship Specialty Start Date End Date Jose Valdovinos MD [address] [place] [phone] PCP - General Family Medicine 10/29/23 Director Human Services Relationship Specialty Start Date End Date Jose Valdovinos DO [address] [place] [address] PCP - General 02/04/10 Director Human Services Relationship Specialty Start Date End Date Jose Valdovinos DO [address] [place] [address] PCP - General 02/04/10 Director Human Services Relationship Specialty Start Date End Date Jose Valdovinos MD [address] [place] [phone] PCP - General Family Medicine 10/29/23 Director Human Services Relationship Specialty Start Date End Date Jose Valdovinos MD [address] [place] [address] PCP - General Family Medicine 10/29/23 Director Human Services Relationship Specialty Start Date End Date Jose Valdovinos DO [address] [place] [address] PCP - General 02/04/10 Director Human Services Relationship Specialty Start Date End Date Jose Valdovinos DO PCP - General 05/09/20 Director Human Services Relationship Specialty Start Date End Date Jose Valdovinos DO [address] [place] [address] PCP - General 02/04/10 Director Human Services Relationship Specialty Start Date End Date Jose Valdovinos DO [address] [place] [address] PCP - General 02/04/10 Director Human Services Relationship Specialty Start Date End Date Jose Valdovinos MD [address] [place] [address] PCP - General Family Medicine 10/29/23 Director Human Services Relationship Specialty Start Date End Date Jose Valdovinos MD [address] [place] [phone] PCP - General Family Medicine 10/29/23 Director Human Services Relationship Specialty Start Date End Date Jose Valdovinos DO [address] [place] [address] PCP - General 02/04/10 Director Human Services Relationship Specialty Start Date End Date Jose Valdovinos DO [address] [place] [address] PCP - General 02/04/10 Director Human Services Relationship Specialty Start Date End Date Jose Valdovinos DO [address] [place] [address] PCP - General 02/04/10 Se Rodriges MD [address] [facility] [address] [place] [address], [place] [address] Neurology 08/23/24 Director Human Services Relationship Specialty Start Date End Date Jose Valdovinos DO [address] [place] [address] PCP - General 02/04/10 Se Rodriges MD [address] [place] [address] Neurology 08/23/24 Director Human Services Relationship Specialty Start Date End Date Jose Valdovinos DO [address] [place] [address] PCP - General 02/04/10 Se Rodriges MD [address] [place] [address] Neurology 08/23/24 Director Human Services Relationship Specialty Start Date End Date Jose Valdovinos DO [address] [place] [address] PCP - General 02/04/10 Se Rodriges MD [address] [place] [address] Neurology 08/23/24 Director Human Services Relationship Specialty Start Date End Date Jose Valdovinos DO [address] [place] [address] PCP - General 02/04/10 Se Rodriges MD [address] [place] [address] Neurology 08/23/24 Director Human Services Relationship Specialty Start Date End Date Jose Valdovinos DO [address] [facility] [place] [address] PCP - General 02/04/10 Se Rodriges MD [address] [facility] [address] [place] [address] Neurology 08/23/24 Director Human Services Relationship Specialty Start Date End Date Jose Valdovinos MD [address] [facility] [place] [phone] PCP - General Family Medicine 10/29/23 Kristi Blake PA [address] [facility] [place] [address] Physician Weapons And Tactics Instructor Neurology 09/08/24 Team Status: Inactive Member Role Status Dates Jose Valdovinos DO Primary Care Provide r, Attending Provider Active Start: October 19, 2024 End: October 19, 2024 Director Human Services Relationship Specialty Start Date End Date Jose Valdovinos MD PCP - General Family Medicine 10/29/23 Kristi Blake PA [address] [place] [address] Physician Weapons And Tactics Instructor Neurology 09/08/24 Director Human Services Relationship Specialty Start Date End Date Jose Valdovinos MD [address] [facility] [place] [address] PCP - General Family Medicine 10/29/23 Kristi Blake PA [address] [place] [phone] Physician Weapons And Tactics Instructor Neurology 09/08/24 Team Status: Inactive Member Role Status Dates Jose Valdovinos DO Primary Care Provide r, Attending Provider Active Start: October 31, 2024 End: October 31, 2024 Team Status: Inactive Member Role Status Dates Jose Valdovinos DO Primary Care Provider Active St art: November 07, 2024 End: November 07, 2024 Fernanda Graham NP Attending Provider Active Start: November 07, 2024 End: November 07, 2024 Team Status: Inactive Member Role Status Dates Jose Valdovinos DO Primary Care Provide r, Attending Provider Active Start: November 23, 2024 End: November 23, 2024 Director Human Services Relationship Specialty Start Date End Date Jose Valdovinos DO [address] [place] [address] PCP - General 02/04/10 Se Rodriges MD [address] [facility] [place] [phone] Neurology 08/23/24 Director Human Services Relationship Specialty Start Date End Date Jose Valdovinos MD [address] [place] [address] PCP - General Family Medicine 10/29/23 Kristi Blake PA [address] [address] Physician Weapons And Tactics Instructor Neurology 09/08/24 Director Human Services Relationship Specialty Start Date End Date Jose Valdovinos DO [address] [place] [address] PCP - General 02/04/10 Se Rodriges MD [address] [address] Neurology 08/23/24 Director Human Services Relationship Specialty Start Date End Date AbdirizakgustaboJose guzman DO PCP - General 05/09/20 Team Status: Inactive Member Role Status Dates Jose Valdovinos DO Primary Care Provider Active St art: November 23, 2024 End: November 23, 2024 Jose Valdovinos DO Attending Provider Active Start : November 23, 2024 End: November 23, 2024 Team Status: Inactive Member Role Status Dates Jose Valdovinos DO Primary Care Provider Active St art: December 08, 2024 End: December 08, 2024 Palak Merrtit NP-C Attending Provider Ac tive Start: December 08, 2024 End: December 08, 2024 Team Status: Inactive Member Role Status Dates Jose Valdovinos DO Primary Care Provider Active St art: December 12, 2024 End: December 12, 2024 Jose Valdovinos DO Attending Provider Active Start : December 12, 2024 End: December 12, 2024 Team Status: Inactive Member Role Status Dates Jose Valdovinos DO Primary Care Provider Active St art: December 19, 2024 End: December 19, 2024 Rafael Holbrook MD Attending Provider Active Start: December 19, 2024 End: December 19, 2024 Team Status: Inactive Member Role Status Dates Jose Valdovinos DO Primary Care Provider Active St art: January 31, 2025 End: January 31, 2025 Danisha Bran MD Attending Provider Active Start: January 31, 2025 End: January 31, 2025 Team Status: Inactive Member Role Status Dates Jose Valdovinos DO Primary Care Provider Active St art: February 02, 2025 End: February 02, 2025 Danisha Bran MD Attending Provider Active Start: February 02, 2025 End: February 02, 2025 Director Human Services Relationship Specialty Start Date End Date AbdirizakgustaboRyan guzmanl Paras [address] [facility] [place] [address] PCP - General 02/04/10 Se Rodriges MD [address] [facility] [address] [place] [address] Neurology 08/23/24 Director Human Services Relationship Specialty Start Date End Date Jose Valdovinos DO [address] [facility] [place] [address] PCP - General 02/04/10 Se Rodriges MD [address] [facility] [address] [place] [address] Neurology 08/23/24 Team Status: Inactive Member Role Status Dates Jose Valdovinos DO Primary Care Provider Active St art: February 28, 2025 End: February 28, 2025 Rosey Dubose MD Attending Provider Active Sta rt: February 28, 2025 End: February 28, 2025 Reason for Visit (unrecogniz ed section and content) Reason Comments Follow-up 8 month essential hy pertension Specialty Diagnoses / Procedures Referred By Contac t Referred To Contact Cardiology Diagnoses Essential hypertension Procedures Follow Up In Cardiology Danisha Bran MD [address] [place] [address] Phone: tel: fax: Danisha Bran MD [address] [place] [address] Phone: tel: fax: Referral ID Status Reason Start Date Expiration Date V isits Requested Visits Authorized [id number] Authorized 07/22/2024 07/22/2025 1 1 Reason Comments Headache Restless Legs Specialty Diagnoses / Procedures Referred By Contac t Referred To Contact Diagnoses Chronic daily headache Cervical radiculopathy Degenerative disc disease, cervical Procedures Trigger Point Injection: right cervical paraspinals, left cervical paraspinals, right upper trapezius, left upper trapezius Ewa Rodriguez PA [address] [place] [address] Referral ID Status Reason Start Date Expiration Date Visits Re quested Visits Authorized [id number] Closed 10/29/2023 04/26/2024 1 1 Reason Comments Follow Up Reason Comments New Patient Reason Onset Date Comments CoPat Stop 10/24/2021 Reason Comments Post Op Sx: 08/16/2021, 2021 Reason Comments Patient Question Reason Comments Patient Education Specialty Diagnoses / Procedures Referred By Contac t Referred To Contact Diagnoses Pre-op testing Procedures REFER TO P[facility] - PRE ANESTHESIA CONSULTATION CLINIC OFFICE/OUTPATIENT NEW HIGH MDM 60-74 MINUTES Christine Gutierrez PA-C [address] [place] [address] Referral ID Status Reason Start Date Expiration Date V isits Requested Visits Authorized [id number] Closed PCP Requested Referral 12/06/2021 12/05/2022 1 [...] Wound check Reason Comments Forms POC from Counts Include [facility] r equesting signature Reason Comments Preparations For Procedures Reason Comments Follow-up 6mo Reason Comments Radiology MRI Specialty Diagnoses / Procedures Referred By Contac t Referred To Contact MR IMAGING Diagnoses Chronic left-sided low back pain with left-sided sciatica Procedures MRI LUMBAR SPINE WO IVCON MRI, LUMBAR SPINE Nemunaitis, Gilmar Milton MD [address] [place] [address] [place] [address] Referral ID Status Reason Start Date Expiration Date V isits Requested Visits Authorized [id number] Closed Auto-Generate d Referral 01/31/2021 03/17/2021 1 1 Reason Onset Date Comments Med prior to MRI 06/06/2024 Reason Onset Date Comments Med Refill 06/13/2024 Reason Comments Results Reason Comments Patient Question Reason Comments Follow-up 8m Referral ID Status Reason Start Date Expiration Date V isits Requested Visits Authorized [id number] Authorized 08/28/2023 08/27/2024 1 1 Reason Comments Preperations for Procedure Mychart Reason Comments Radiology CT Reason Comments Preperations for Procedure Call Reason Comments Cancel injection for today Reason Comments Post Injection Questions Reason Comments Med Refill Reason Comments Trigger Point Injections Reason Comments Follow Up Pt states that lower back pain has increased. States he had a fall that made it worse Reason Onset Date Comments Medication Problem 12/01/2024 Reason Onset Date Comments EMG 12/07/2024 Specialty Diagnoses / Procedures Referred By Paula ibrahim Referred To [facility] Diagnoses Lumbar radiculopathy Procedures EMG(NEURO/NI) NERVE CONDUCTION STUDIES 9-10 STUDIES Loyda Steele MD [address] [place] [address] Phone: tel: fax: Neurology [address] [place] [address] Phone: tel: Referral ID Status Reason Start Date Expiration Date V isits Requested Visits Authorized [id number] Closed Auto-Generate d Referral 11/30/2024 11/30/2025 1 1 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 [facility]. provides no warranty or guarantee of the accuracy or completeness of information in this document.
== END 2025-03-01 10:52 | disposition home or self-care (01) ==
LOC: PM 10:51
PROVIDERS: PCP Family Medicine; Visit Provider Nurse Practitioner
DX: M54.16 Radiculopathy, lumbar region (principal); M46.1 Sacroiliitis, not elsewhere classified; M96.1 Postlaminectomy syndrome, not elsewhere classified; M79.18 Myalgia, other site; Z79.891 Long term (current) use of opiate analgesic; M47.816 Spondylosis without myelopathy or radiculopathy, lumbar region
CPT/HCPCS: G0463

== ENCOUNTER 2025-05-31 10:50 | Outpatient (OUT) | payer MEDICARE, SELFPAY ==
--- OUTSIDE RECORDS SUMMARY | 2025-05-17 09:25 | XMS_ITS | Continuity of Care Document ---
Author Organization 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 Role Phone Socrates Valdovinos DO Primary Care Provider Rosey Dubose MD Attending Provider Mia Otto Attending Provider + Socrates Valdovinos DO Attending Provider Darwin Carson DO Attending Provider [phone] Rafael Holbrook MD Attending Provider [phone] Care Teams Patient Care Team Team Status: Active Member Role/Relationship Status Dates Socrates Valdovinos DO Primary Care Provider Active Visit Care Team Team Status: Inactive Member Role/Relationship Status Dates Socrates Valdovinos DO Primary Care Provider Active St art: February 28, 2025 End: February 28Anika Briseno ProviderActiveStart: February 28, 2025 End: February 28, 2025 Visit Care Team Team Status: Inactive Member Role/Relationship Status Dates Socrates Valdovinos DO Primary Care Provider Active St art: April 18, 2025 End: April 18, 2025VELVET Hilario-CAttending ProviderActive Start: April 18, 2025 End: April 18, 2025 Visit Care Team Team Status: Inactive Member Role/Relationship Status Dates Socrates Obgustabor DO Primary Care Provider Active St art: April 18, 2025 End: April 18, 2025Socrates Obgustavo DOAttending ProviderActiveStart: April 18, 2025 End: April 18, 2025 Visit Care Team Team Status: Inactive Member Role/Relationship Status Dates Socrates Revelesgustavo DO Primary Care Provider Active St art: April 24, 2025 End: April 24jamie Carson DOAttending ProviderActiveStart: April 24, 2025 End: April 24, 2025 Visit Care Team Team Status: Inactive Member Role/Relationship Status Dates Socrates Obgustabor DO Primary Care Provider Active St art: May 01, 2025 End: May 01, 2025Ryansarbjit Oberer , DOAttending ProviderActiveStart: May 01, 2025 End: May 01, 2025 Patient Care Team Team Status: Inactive Member Role/Relationship Status Dates Socrates Valdovinos Primary Care Provider Active St art: May 17, 2025 End: May 17, 2025Rafael Holbrook MDAttending ProviderActiveStart: May 17, 2025 End: May 17, 2025 Chief Complaint and Reason for Visit Chief Complaint Admit Date E29.1 February 28, 2025 1:40pm E78.00,I10,R73.02 April 18, 2025 1 0:13am TPI per [place]--APPROVED #[id number] April 24, 2025 11:33am 6 month f/u w/ fasting labs April 12:59pm Reason for Visit Admit Date Cervical radiculopathy April 18 8:56am Chronic migraine without aur a with status migrainosus, not intractable April 18, 2025 8:56am History of stroke April 18, 2025 8 :56am Hyperreflexia April 18, 2025 8 :56am Lumbosacral radiculopathy April 18, 2025 8:56am Myalgia April 18, 2025 8 :56am Restless leg syndrome April 18, 2025 8:56am Myalgia April 24, 2025 1 1:33am BMI 40.0-44.9, adult May 01, 2025 12:59pm Chronic back pain May 01, 2025 1 2:59pm Chronic insomnia May 01, 2025 1 2:59pm Coronary artery disease invo lving [place] coronary artery of [place] heart May 01, 2025 12:59pm Cyst of epididymis determined by ultraso und May 01, 2025 12:59pm Essential hypertension May 01 12:59pm Impaired glucose tolerance May 01, 2025 12:59pm Mixed hyperlipidemia May 01, 2025 12:59pm 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 May 01, 2025 12:59pm Obstructive sleep apnea of adult Novembe r 2024 12:59pm Postlaminectomy syndrome May 01, 12:59pm Chronic migraine without aur a with status migrainosus, not intractable May 01, 2025 12:59pm History of stroke May 01, 2025 1 2:59pm Hyperreflexia May 01, 2025 1 2:59pm Lumbosacral radiculopathy May 01, 2025 12:59pm Colon cancer screening May 01 12:59pm Thumb laceration May 01, 2025 1 2:59pm Allergies, Adverse Reactions, Alerts Allergen Type Severity Reaction Last Updated Verified Status Comments Penicillins Allergy Severe Anaphylaxis, throat swelled May 17, 2025 1:51pm Yes Active buspironeAllergyUnknownheadacheNoveer 2024 1:51pmYesActivelatexAllergy UnknownRashNovember 2024 1:51pmYesActiveThis patient is not Allergic to Albuterol. Social History Smoking Status Status Start Date End Date Date of Observa tion Never smoked tobacco (finding) January 31, 2025 9:25am Observation Status Observation Response Date of Response Legal Sex Male (finding) Sex Assigned At BirthMaleDeceer 1959 Family History Relationship Condition Age at Onset Recorded Date/T larry father Diabetes mellitus Unknown HypertensionUnknownmotherDiabetes mellitusUnknownMalignant neoplasm of pancreas UnknownbrotherHigh blood cholesterolUnknownHypertensionUnknown Problems Active Problems Problem Diagnosis/Recorded Date Onset Date Status C omments BARRY (acute kidney injury) September 11, 2021 1:06pm Unknown Active Generalized OAMay 2023 12:24pmUnknownActiveGeneralized anxiety disorder with panic attacksMay 2023 12:23pmUnknownActive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May 2023 12:25pmUnknownActiveNeed for antibiotic prophylaxis for dental procedureNovember 2023 1:08pmUnknown ActiveObstructive sleep apneaMarch 2021 6:50pmUnknownActivecpap at night Chronic migraine without aura with status migrainosus, not intractableOctober 2024 6:09pmUnknownActiveAtypical migraineOctober 2016 11:36amUnknown ActiveLumbosacral radiculopathyOctober 2024 6:16pmUnknownActiveObstructive sleep apnea of adultApril 2023 1:54pmUnknownActiveRepeated fallsNovember 2021 4:47pmUnknownActiveImpaired glucose toleranceNovember 2024 5:54pm UnknownActivePost-operative infectionMarch 2021 1:06pmUnknownActiveChronic rhinitisMay 2023 12:20pmUnknownActiveMyalgiaOctober 2024 6:18pm UnknownActiveDizzinessNovember 2021 4:47pmUnknownActiveSlurred speech May 03, 2022 5:29pmUnknownActiveMorbid obesityMarch 2021 6:50pm UnknownActiveDiverticulosisFebruary 2023 9:41amUnknownActiveFatty liver August 26, 2023 9:41amUnknownActiveRecent FibroScan from 06/12/2024 showed S3/F2 0-F1 changes despite greater than a 10% weight loss.Chronic kidney disease, stage 3November 2021 5:53pmUnknownActiveCervical radiculopathy April 18, 2025 6:31pmUnknownActiveChronic insomniaAugust 2023 9:33pm UnknownActiveCellulitisMarch 2022 11:21amUnknownActiveDiarrheaFebruary 2023 11:33amUnknownActiveIntolerance to BiPAP/CPAPFebruary 2024 1:18pmUnknownActiveMigrainesDecember 2021 9:15amUnknownActiveKidney stones June 02, 2022 9:22amUnknownActivelithotripsyMixed hyperlipidemiaJune 2023 1:01pmUnknownActiveObesity, Class II, BMI 35-39.9November 2023 11:13amUnknownActiveAtypical chest painSeptember 2019 5:30pmUnknownActive PolypharmacyMay 2023 12:21pmUnknownActiveOsteoarthritis of kneeApril 2023 1:54pmUnknownActiveRestless leg syndromeOctober 2024 6:16pmUnknown ActiveCyst of epididymis determined by ultrasoundNovember 2024 5:56pm UnknownActiveEssential hypertensionApril 2023 2:00pmUnknownActive HyperreflexiaOctober 2024 6:35pmUnknownActiveCoronary artery disease involving [place] coronary artery of [place] heartMay 2023 12:24pmUnknown ActiveBMI 39.0-39.9,adultFebruary 2024 1:19pmUnknownActiveBMI 40.0-44.9, adultApril 2023 1:54pmUnknownActivePrediabetesApril 2023 1:54pmUnknown ActiveSepsisMarch 2021 1:06pmUnknownActiveChronic back painMay 2023 12:22pmUnknownActiveLumbar radicular painNovember 2021 1:13pmUnknownActive Neck muscle strainAugust 2019 11:47amUnknownActivePostlaminectomy syndrome May 06, 2022 2:15pmUnknownActivesteroid injections, lumbarElevated blood pressure reading with diagnosis of hypertensionNovember 2021 4:47pmUnknown ActiveLeft ear impacted cerumenMay 2023 12:21pmUnknownActiveGERD (gastroesophageal reflux disease)June 02, 2022 9:22amUnknownActiveChronic headachesFebruary 2024 12:16pmUnknownActiveHistory of strokeOctober 2024 6:30pmUnknownActiveStable anginaMay 2023 12:21pmUnknownActiveCVA (cerebral vascular accident)September 11, 2021 6:72zvApryhinGyvugn4773Cjvaqhfjq daytime sleepinessFebruary 2024 1:24pmUnknownActive Medications Medication Status Dose Units Route Directions Qty Days Refills S tart Date Stop Date End Date Reason(s) Instructions Adherence Doxepin 10 mg capsule Discontinued 0 .ROUTE.ETDTYKK545Vxark 2023 12:27pmJune 2023 12:38pmTAKE 1 CAPSULE DAILY AT BEDTIMEClopidogrel 75 mg jjpqihVvozragehqgo08GPBHYcwwm at bedtimeOctober 29, 2023 8:50amMay 2023 8:52amClopidogrel 75 mg tabletDiscontinued0.ROUTE .UUGZWTS277Jrs2023 8:51amJune 2023 12:38pmTAKE 1 TABLET DAILYFerrous Sulfate 325 mg (65 mg iron) nonuvjLcmtuovdwked269NHVPFpzuq797Fyo 6th, 2024 8:16amNovember 2023 2:20pmFreeTextSig: TAKE ONE TABLET BY MOUTH DAILY WITH FOOD; Note: Source Status: Taking; Refills: 1; Qty: 90 Tablet; Provider: Bonifacio Crowell ( )Promethazine 25 mg cflewqHxdtyfmstief97VZPDRhsrx 6 hours as needed for nausea and praunstc948Rsq2023 2:29pmJune 2023 12:39pm Metoprolol Succinate 50 mg tablet extended release 24 hrDiscontinued0.ROUTE .SVANGCS061Rji2023 2:31pmJune 2023 12:38pmTAKE 1 TABLET DAILY Omeprazole 40 mg capsule,delayed release(DR/EC)Discontinued0.ROUTE.HNDPHWI721Sez2023 2:32pmJune 2023 12:38pmTAKE 1 CAPSULE DAILY 30 MINUTES BEFORE MORNING MEALFinasteride 5 mg tabletDiscontinued0.ROUTE.QNWDULT796Knh2023 2:40pmJune 2023 12:38pmTAKE 1 TABLET DAILYDoxazosin 4 mg tablet Discontinued0.ROUTE.UDLPZCP633Uzo2023 1:20pmJune 2023 12:38pmTAKE 1 TABLET DAILYFurosemide 40 mg tabletDiscontinued0.ROUTE.CNMECAW655Yjf2023 1:21pmJune 2023 12:38pmTAKE 1 TABLET DAILYValacyclovir 500 mg tablet Discontinued0.ROUTE.RHAHNUI574Jia2023 1:21pmJune 2023 12:38pmTAKE 1 TABLET DAILYPotassium Chloride (Klor-Con M20) 20 mEq tablet,ER particles/crystalsDiscontinued0.ROUTE.GMLIEQL114Jfh2023 3:25pmJune 2023 12:38pmTAKE 1 TABLET DAILY WITH FOODPromethazine 25 mg eybhppKwmnor77CETY Every 6 hours as needed for temwwc972Outi2023 12:37pm1 tablet as needed for nauseaComplies with drug therapyBaclofen 20 mg tabletDiscontinued0.ROUTE .BTJCPSI303Grca 24th, 2024 7:12amNovember 2023 10:44amTAKE 1 TABLET DAILY NEEDEDTelmisartan 80 mg tabletDiscontinued0.ROUTE.IMIPZGS731Qrtuxw2023 8:47amFebruary 2024 9:47amTAKE 1 TABLET DAILYFluticasone Propionate 50 mcg/actuation spray,suspensionDiscontinued0.ROUTE.HZWGMTP410Yvtplp2023 7:50amFebruary 2024 9:42amUSE 2 SPRAYS IN EACH NOSTRIL ONCE DAILYDoxepin 10 mg capsuleDiscontinued0.ROUTE.LEKXDZK301Vxvkxhx 28th, 2024 2:57pmFebruary 2024 9:41amTAKE 1 CAPSULE DAILY AT BEDTIMEClopidogrel 75 mg tablet Discontinued0.ROUTE.CJNETXD966Gozkkui 28th, 2024 2:57pmJanuary 2024 1:19pm TAKE 1 TABLET DAILYFerrous Sulfate (Ferosul) 325 mg (65 mg iron) tablet Discontinued0.ROUTE.[address] 2023 2:19pmFebruary 2024 11:44amTAKE 1 TABLET BY MOUTH DAILY WITH FOODPotassium Chloride (Klor-Con M20) 20 mEq tablet,ER particles/crystalsDiscontinued0.ROUTE.[address] 2023 2:19pmFebruary 2024 9:47amTAKE 1 TABLET DAILY WITH FOODFurosemide 40 mg tabletDiscontinued0.ROUTE.[address] 2023 2:19pmFebruary 2024 9:43amTAKE 1 TABLET DAILYDoxazosin 4 mg tabletDiscontinued0.ROUTE.[place] [address] [facility] 2023 2:20pmNovember 2023 2:31pmTAKE 1 TABLET DAILY Valacyclovir 500 mg tabletDiscontinued0.ROUTE.[address] 2023 2:20pmFebruary 2024 9:47amTAKE 1 TABLET DAILYOmeprazole 40 mg capsule,delayed release(DR/EC)Discontinued0.ROUTE.[address] 2023 2:20pmFebruary 2024 9:47amTAKE 1 CAPSULE DAILY 30 MINUTES BEFORE MORNING MEALFinasteride 5 mg tabletDiscontinued0.ROUTE.[address] 2023 2:20pmNovbanner cardon [facility] 2023 12:02pmTAKE 1 TABLET DAILYMetoprolol Succinate 50 mg tablet extended release [address] 2023 2:20pmFebruary 2024 9:43amTAKE 1 TABLET DAILYDoxazosin 4 mg tablet Sdktutmbkmln6TSTGUjrhm63045Ltaprvto 2023 2:30pmMay 2024 12:30pm Finasteride 5 mg wqlwocCyhchyquuoes6KPTVMmrwn85789Bruxhnro 2023 11:59amMay 2024 12:30pmFerrous Sulfate (Ferosul) 325 mg (65 mg iron) tablet Discontinued0.ROUTE.NZGNQVK123Djpeioyc 2024 11:30amFebruary 2024 11:48amTAKE 1 TABLET BY MOUTH DAILY WITH FOODFerrous Sulfate (Ferosul) 325 mg (65 mg iron) kgatadCserknvnpddk968AMFKWgjky623Istiktuq 2024 11:47amMay 2024 8:57amSemaglutide (Ozempic) 2 mg/dose (8 mg/3 mL) pen injectorDiscontinued2 MGSUBCUTevery hnpi32[place] 2024 11:00pmJune 2024 9:26amClopidogrel 75 mg tabletDiscontinued0.ROUTE.YCXCUQH921Mrqri 2024 7:28amMay 2024 9:06amTAKE 1 TABLET DAILYDoxepin 10 mg bmulnawGuzkgfaamxtq02UAINMcjsw at bedtime 90pril 2024 12:22pmMay 2024 8:27amFerrous Sulfate (Ferosul) 325 mg (65 mg iron) tabletDiscontinued0.ROUTE.RRRQHJF577Dar2024 8:56amMay 2024 9:41amTAKE 1 TABLET BY MOUTH DAILY WITH FOODDoxazosin 4 mg tablet Discontinued0.ROUTE.SDKACPO280Jjb2024 12:30pmJune 2024 9:36amTAKE 1 TABLET (4 MG) DAILYFinasteride 5 mg tabletDiscontinued0.ROUTE.IPQGAXA910Qaj2024 12:30pmJune 2024 1:45pmTAKE 1 TABLET DAILYOnabotulinumtoxina (Botox) 200 unit recon gjfhOxvhlkdthxbj370HASCEXNSXUIekp93Zbrt 2024 11:00pmAugust 2024 8:49amTelmisartan 80 mg tabletDiscontinued0.ROUTE .VNKMKZN367Lclv 2024 2:44pmAugust 2024 8:54amTAKE 1 TABLET DAILY Fluticasone Propionate 50 mcg/actuation spray,suspensionDiscontinued0.ROUTE .VPDDIQQ819Xhlijq 4th, 2025 8:04amAugust 2024 8:54amUSE 2 SPRAYS IN EACH NOSTRIL ONCE DAILYDuloxetine 60 mg capsule,delayed release(DR/EC)Sgiydlleckox72 HYUADyqsv58667Vanukq 18th, 2025 11:00pmAugust 2024 10:07amDuloxetine 60 mg capsule,delayed release(DR/EC)Xqbfzp99DHYQEbbji zocin660701Vvgvkz 25th, 2025 10:07amComplies with drug therapyNortriptyline 50 mg ugnnljuYfwiti47KMPNBwddk at ozwoumu833Ikswbzvlz 2nd, 2025 11:34amComplies with drug therapyPregabalin 200 mg jpvxmlaMpfxpsmbhbsq622CZCAQggur times ipehg73794Tttsxpphb 4th, 2025 11:56am April 18, 2025 6:28pmLumbar radicular syndrome Radiculopathy, lumbar regionRopinirole 1 mg cbvavsKldqmh8TDBVWcctu pwgefqb55043 April 17, 2025 11:39amComplies with drug therapyFerrous Sulfate (Ferosul) 325 mg (65 mg iron) plwhrjDqibdv368CJKINbzfd lzgbpvv33657Vmikzfwv2024 9:49amTAKE 1 TABLET BY MOUTH DAILY WITH FOODComplies with drug therapyDoxazosin 4 mg xldesmUeibrm8LQSMXhdik at ikzfzjz56132Hwfxkmbm2024 9:50amComplies with drug therapyDoxepin 10 mg wyvpbpxGhukll31OWGCTdrzo at alutdvv10259Vdfhhdsx 14th, 2025 9:51amComplies with drug therapyIbuprofen 800 mg TabletDiscontinued 800MGPOThree times daily as needed for PainJanuary 2018 12:00amMa[facility] 2021 4:10pmDiclofenac Sodium (Voltaren) 1 % GcpBweehrukljek9PPETPXUEIAxgv times dailyJanuary 2018 12:00amMaav[facility] 2021 4:00pmOmega 4-Cec-Jar-Fish Oil (Fish Oil) 1,000 mg (120 mg-180 mg) CapsuleDiscontinuedJanuary 2018 12:00amMarch 2021 4:13pmPrasterone (Dhea)-Calcium Carb (Dhea) 10 mg-47 mg calcium KlglpkPahmgalhktat09FMJUIAgyazFhhbegj 2018 12:00amMay 2023 7:49amAnastrozole 1 mg TabletDiscontinuedJanuary 2018 12:00amMarch 2021 3:57pmPromethazine 12.5 mg PthzcjArcwzdfhhivj38.5MGPO.as needed as needed for nausea and vomitingJanuary 2018 12:00amMay 2023 7:52amDicyclomine 20 mg jgezrqSxodqzwvocez96VIOZEcozq morningJanuary 2018 12:00amJune 2023 12:38pmLevomefolate Calcium 7.5 mg TabletDiscontinuedJanuary 2018 12:00amMarch 2021 4:11pmDicyclomine 20 mg ymijiiHflzsf29CEHVQgdah morning as needed for abdominal painJune 2023 12:30pmComplies with drug therapy Omeprazole 40 mg capsule,delayed release(DR/EC)Fmdmzvsyjcpv00KAOGYfwhv morning September 10, 2021 11:00pmMay 2023 2:32pmNortriptyline 50 mg capsule Zwogposqsmsy80JYOFLbggy at bedtimeR[facility]view [facility] Centerch 2021 11:00pmSept2024 11:34amPregabalin 100 mg qgbsokmUjmuuvhnybly797LJKCLledv at 0730, 1530, 2330 September 10, 2021 11:00pmMay 2023 7:37amMirtazapine 30 mg tabletDiscontinued 30MGPODailyBl[facility] 2021 11:00pmDecedignity health [facility] 2021 8:51amFurosemide 40 mg ubmahjVcyxhhgojqek7GYCENMbfpd morningMarch 29, 2017 11:00pmMay 2023 7:55amHydrocodone-Acetaminophen 5-325 mg xlakcgHznqejsteoja6AQIHFKczle daily March 29, 2017 11:00pmNov2021 2:14pmClopidogrel 75 mg tablet Haimjytwlokf0TXPYIPiuue at bedtimeMarch 29, 2017 11:00pmMay 2023 8:51am Potassium Chloride (Klor-Con M20) 20 mEq tablet,ER particles/crystals Huzkonlltlub9DANYDYpknl 2016 11:00pmMa2023 3:25pm Fluticasone Propionate (Flonase Allergy Relief) 50 mcg/actuation [place],IrvyoipguyUkuthbvdwrdr5FWQEZHOJMCRJKCAEuufm dailyOct2016 11:00pm February 01, 2024 7:51amDuloxetine (Cymbalta) 60 mg Capsule,Delayed Release(Dr/Ec)Qsfrgwyhoshm21OQHDZcmge times dailyOct2016 11:00pmOctober 30, 2023 7:33amMetoprolol Tartrate 50 mg HtqjvbDgwbtsmkftgj00FDBYBdcvp morning March 29, 2017 11:00pmOctober 30, 2023 7:44amValacyclovir (Valtrex) 500 mg PzkyixAtdxrobnhrfm677PCLDTe Directed as needed for OutbreakOct2016 11:00pmNovember 11, 2023 1:21pmtakes in the morningBaclofen 20 mg Tablet Ponkopphsweq84NSGVGbntj at bedtimeOct2016 11:00pmC[facility] Centere 2023 12:38pmChromium-Brindal Baker (Garcinia Cambogia) 200-500 mcg-mg Tablet Khnoazbdbmqx8YXVKCAuimzEsdteet 1st, 2017 11:00pmNov2021 2:13pm Eletriptan (Relpax) 40 mg RetuzmNuehrswomzud1fybz pkPOThree times daily as needed for HeadacheOct2016 11:00pmBl[facility] 2021 4:05pmPsyllium Husk (Fiber (Psyllium Husk)) 0.4 gram NuaphrwEtqvnyejjmcl6GBWXVItpfeXbwzqin 1st, 2017 11:00pm[facility] 2021 7:40pmGabapentin (Neurontin) 600 mg TabletDiscontinued 197TUDA8 to 2 times per dayOct2016 11:00pmBl[facility] 2021 6:14pm Atorvastatin 80 mg xvjgpeLwfngxqpatpi2YBPDOGqrmr at bedtimeOctober 2016 11:00pmApril 2023 4:45pmTelmisartan (Micardis) 80 mg VzmvdpGrudyswrfneh62SU POEvery morningMarch 29, 2017 11:00pmAupresbyterian hospitalt 2023 8:48amDoxazosin 4 mg RyknhgBlqiyahgepho8SKMLWcqnw at bedtimeOctober 2016 11:00pmMay 2023 1:20pmBiotin 10,000 mcg TnkndajGaaphljvzsja0WDUBGWhvng at bedtimeOctober 2016 11:00pmMay 2023 7:40amFinasteride 5 mg YedyovGnoozevmfyqp4WJUYVpoln at bedtimeOctober 2016 11:00pmMay 2023 2:09wiTpeomexw-Wpk-Ersom-Vit K- Lycop (One-A-Day Men's Multivitamin) 400-300 mcg EtzqfqQtorpl8PLQKDXxpiu evening March 29, 2017 11:00pmComplies with drug therapyZolpidem (Ambien Cr) 12.5 mg Tablet,Ext Release NcrpmnxtnbAyefhjkkvvdy14.5MGPOBedtime as needed for Insomnia March 29, 2017 11:00pmMarch 2021 7:45pmTestosterone Cypionate 200 mg/mL EpoOtndyowrmydm948DXLQMMWWF 2 WEEKSOct2016 11:00pmAugust 2024 8:53amDiclofenac Sodium 1 % KsaJxswmasgifkp7OITQKKJEHLLKF5-8 TIMES DAILY as needed for ItchingOct2016 11:00pmMarch 2021 4:00pmAtorvastatin 80 mg vfnxmaGkvuob48DCREEzewc at bedtimeApril 2023 4:42pmComplies with drug therapyFurosemide 40 mg dpvywyHutygxgjsmlh17MVVJKhgzx morningOctober 30, 2023 7:47amMay 2023 1:21pmBaclofen 20 mg vvckbkFltnewuecnut50PPTPRcaouSvvh 2023 12:28pmJune 2023 7:13amOxycodone-Acetaminophen (Percocet) 5-325 mg orqzczVfdbqtqenkcf3SURHXS1H as needed for ihwt415Rywcje ch 2021 4:13pmStrain of muscle, fascia and tendon at neck level, initial encounter Ibuprofen 800 mg LpojcjGkmwmwetteld586GJXSWqelm times dailyNov2021 11:00pmNovember 8th, 2022 2:56pmAcetaminophen 500 mg ZvkzypXrxxislyggki9451UNBE Q6H as needed for PainNov2021 11:00pmDece2021 8:48amOn Hold: until taking hydrocodoneHydrocodone-Acetaminophen 5-325 mg Tablet Xpadgcruxapa6JMGQGLjcki 6 hours as needed for Yjib8749Dqlmjdwf2021 8:51amPost-laminectomy syndrome Postlaminectomy syndrome, not elsewhere classifiedAspirin 81 mg Tablet,Delayed Release (Dr/Ec)Qtiieixmucef45HBIIYkxxg91633Puazwzbp 8th, 2022 12:00amMay 2023 7:29amQuetiapine 25 mg eetdpvPdnnligucvsq72JZTFHafit at bedtimeJune 02, 2022 12:00amMay 2023 7:51amOnabotulinumtoxina (Botox) 100 unit Recon SolnDiscontinued0.ROUTE.COMPLEXJune 02, 2022 12:00amNove2023 10:45ampatient recieves injectios for migraine treatment every 3 months at neurology officeFremanezumab-Vfrm (Ajovy Syringe) 225 mg/1.5 mL Syringe Scjrbnsbeijo445ZNRUOFAZA82YBpjaifqe 5th, 2022 12:00amJune 2024 9:12amfor migraines, patient last injection 05/27Metoprolol Succinate 50 mg tablet extended release 24 upCjdyhyrtroeh13CTGODmdvcIcgxbszu 19th, 2022 12:00amFebruary 2023 12:04pmClindamycin Hcl 150 mg sphisyqVcscvshpukvy137LCZSQ7B0960Fwvgt 2022 12:00amFebruary 2023 12:02pmMorphine 15 mg tabletDiscontinued7.5 LMTQD2Z as needed for zlds568VbfisSeptember 03, 2022February 2023 12:04pm Cellulitis Cellulitis, unspecifiedHydrocodone-Acetaminophen 7.5-325 mg sjmkbuIsjtvw4GMICK Three times dailyAugust 2024 11:00pmComplies with drug therapyTestosterone Cypionate 200 mg/mL uolIiiqus215RYTOILQYN 2 WEEKSAugust 2025 11:00pm Complies with drug therapyRopinirole 1 mg auzxekQpmihtsyyutz7RDUHWnaju morning January 30, 2025 11:00pmOctober 2024 11:39amIsosorbide Mononitrate 30 mg tablet extended release 24 shYxanojhvlias15JCKBEkprw morningAugust 2024 11:00pmAugust 2024 11:34amFerrous Sulfate (Ferosul) 325 mg (65 mg iron) vuquonHvtwuelmmrwt291UXXWGxisc eveningAugust 2024 11:00pmNovember 2024 9:52amTAKE 1 TABLET BY MOUTH DAILY WITH FOODTelmisartan 80 mg tabletActive 80MGPOEvery morninggus2024 11:00pmTAKE 1 TABLET DAILYComplies with drug therapyFluticasone Propionate 50 mcg/actuation spray,mzvxagtndoVakvwe0VICVY INTRANASALTwice dailyJanuary 30, 2025 11:00pmUSE 2 SPRAYS IN EACH NOSTRIL ONCE DAILYComplies with drug therapyIsosorbide Mononitrate 30 mg tablet extended release 24 hrDiscontinuedMGPOMay 2023 11:00pmJune 2023 12:38pm FreeTextSig: Oral; Note: Source Status: Taking; Qty: 90 Tablet; Provider: JunioriAtogepant (Qulipta) 60 mg ppxyxiXnkatdbdhvvy83QLXBGzxpbXqk 2023 11:00pmJune 2023 12:27pmBiotin 5,000 mcg tablet, sjnbygvumtAgysjx1730ZPN SUBLINGUALDailyMay 2023 11:00pmFreeTextSi tablet Orally Once a day; Note: Source Status: Taking; Provider: Bonifacio Crowell ( )Complies with drug therapyHydrocodone-Acetaminophen 5-325 mg plhhdrEescnjpzjdnd9JDMYY Three times jovqh5CydOctober 29, 2023 11:00pmNov2023 8:42amFreeTextSi Tablet Orally tid; Note: Source Status: Taking; Provider: Dr MartinezMetoprolol Succinate 50 mg tablet extended release 24 imBhifvoiqbpcf90BFWSWvvbmNqj 2023 11:00pmMay 2023 2:32pmFreeTextSi tablet Orally Once a day; Note: Source Status: Taking; Refills: 1; Qty: 90 Tablet; Provider: Bonifacio Prieto Nitroglycerin 0.4 mg tablet, sublingualDiscontinued0.4VRTNJFATEYMWZ3N as needed for chest painOctober 29, 2023 11:00pmAugust 2024 11:34amFreeTextSig: Sublingual; Note: Source Status: Taking; Qty: 25 Tablet; Provider: Andrzej Promethazine 25 mg dpgvlsAbmmkrdozcel42SVKNap neededOctober 29, 2023 11:00pmMay 2023 2:32pmFreeTextSi tablet as needed nausea Orally every 6 hrs; Note: Source Status: Taking; Refills: 1;Qty: 90 Tablet; Provider: Bonifacio Prieto Ropinirole 0.5 mg tabletDiscontinued0.5MGPODailyOctober 29, 2023 11:00pmAugust 2024 8:54amFreeTextSi tablet Orally Once a day; Note: Source Status: Taking; Refills: 1; Qty: 90 Tablet; Provider: Bonifacio Crowell LFerrous Sulfate 325 mg (65 mg iron) hwvdntGmfxvpxyutzl716FBNTPvcucZgt 2nd, 2024 11:00pmMay 2023 8:17am FreeTextSig: TAKE ONE TABLET BY MOUTH DAILY WITH FOOD; Note: Source Status: Taking; Refills: 1; Qty: 90 Tablet; Provider: Bonifacio Crowell ( ) Sildenafil 50 mg nwzfqkXaarcq88CJQUTgcod as needed for sexual activityOctober 29, 2023 11:00pmFreeTextSi tablet as needed Orally Once a day; Note: Source Status: Taking; Provider: Bonifacio Crowell ( )Complies with drug therapyMagnesium 200 mg bvaydvYtwtmn694PXUPJlest at bedtimeOctober 29, 2023 11:00pm Complies with drug ueqygfpXaxljv-Xisbjjae-Uisooul (Pork) (Creon) 36,000-114,000- 180,000 unit capsule,delayed release(DR/EC)Hlfxmojdfsnt2BPIFEYryt times dailyOctober 29, 2023 11:00pmOctober 2024 8:03amadminister with meals and/or snacks Ascorbic Acid-Collagen (Collagen Plus Vitamin C) 125-740 mg dfhqvpfQchihk3AFGTC Twice dailyOctober 29, 2023 11:00pmComplies with drug therapySemaglutide (Ozempic) 2 mg/dose (8 mg/3 mL) pen bzhdpdzeZhslztferebk7ORWWEPEYinsxy weekMay 2023 11:00pmApril 2024 1:55pmNOVO PAPIsosorbide Mononitrate 30 mg tablet extended release 24 olAklklqrtkgua21CVLHJhlpqStuc 2023 12:32pmMay 2024 8:27amMethocarbamol 500 mg placgxJtkxnsozfgha285HMNDZzcap times daily May 06, 2024 12:00amNovember 2023 10:46amHydrocodone-Acetaminophen 7.5-325 mg tabletDiscontinuedTABPOThree times wsxec6Lisgzmps2023 12:00am September 28, 2024 1:54pmMethocarbamol 500 mg rmqewlVhnkuo1627JYQTOmesd times daily May 18, 2024 10:45amComplies with drug therapyHydrocodone-Acetaminophen 5-325 mg tabletDiscontinuedTABPOThree times dgmkf9Psunj2024 11:00pmAugust 2024 8:47amDoxepin 10 mg semghycSczclgcdxwqy84FXSBArqct at bedtimeFebruary 2024 9:40amApril 2024 12:22pmFluticasone Propionate 50 mcg/actuation spray,ojlkyixoacUakkoodcgmxj2PBAJDXELIEMQPUCQlfqkHnxmsnqk 2024 9:42am January 30, 2025 8:15am2 sprays each nostril once dailyFurosemide 40 mg tablet Vpakry24KTCXWmgto morningFebruary 2024 9:42amComplies with drug therapy Metoprolol Succinate 50 mg tablet extended release 24 gkYwsrig59PIMPDxqhe morningFebruary 2024 9:43amComplies with drug therapyOmeprazole 40 mg capsule,delayed release(DR/EC)Azwitjtzugbv35HWYCKefzk 2024 9:44amNovember 2024 1:18pmTAKE 1 CAPSULE DAILY 30 MINUTES BEFORE MORNING MEALPotassium Chloride (Klor-Con M20) 20 mEq tablet,ER particles/crystalsActive 20MEQPOEvery 2024 9:45amTAKE 1 TABLET DAILY WITH FOOD Complies with drug therapyTelmisartan 80 mg eehztkXeifnwpiyvmu46FKQYHxvbf August 18, 2024 9:46amJuly 2024 2:44pmValacyclovir 500 mg tabletActive 500MGPOEver2024 9:46amComplies with drug therapy Sulfamethoxazole-Trimethoprim (Bactrim Ds) 800-160 mg sytopePkjgwylkthgt9ZXVEG Twice mftpi38808Jtpavrff2024 12:00amApril 2024 1:56pmOmeprazole 40 mg capsule,delayed release(DR/EC)Kezqvt45REFUAtmgy mfqolnj19379Sbegylni 3rd, 2025 1:17pmTAKE 1 CAPSULE DAILY 30 MINUTES BEFORE MORNING MEALComplies with drug therapyDoxazosin 4 mg mnjtwkUcushqixgglg1OFMKVcdyb at bedtimeCata[facility] Centere 2024 9:35amNovember 2024 9:52amFinasteride 5 mg oxngpgXfuupa4RBXABloph at bedtimeCataw[facility]2024 1:45pmComplies with drug therapySemaglutide (Ozempic) 2 mg/dose (8 mg/3 mL) pen qybfanfjWjoaipeihwrj6VJWDHOAVmozmu weekApril 2023 11:00pmApril 2023 2:01pmFreeTextSi mg Subcutaneous weekly; Note: Source Status: TakingPatient assistance.; Provider: Eddi García RPregabalin 200 mg bnrxzmvPsmguanyupob477TTBEIfdpf times dailyApril 2023 11:00pmSeptember 2024 11:59amDuloxetine 30 mg capsule,delayed release(DR/EC)Qdyilixdopbp71TJHW Four times dailyApril 2023 11:00pmMay 2023 7:45amDuloxetine 30 mg capsule,delayed release(DR/EC)Yhfcygjmhsqj19NKMDNjrrXpb 2023 7:34amJune 2023 12:38pmDuloxetine 30 mg capsule,delayed release(DR/EC)Srxythudjmrd47 MGPODaily at bedtimeCataw[facility]2023 12:36pmJune 2024 9:14amDuloxetine 30 mg capsule,delayed release(DR/EC)Tabjffgbbral28WAUIChchr dailyJun2024 9:11amOctober 2024 8:02amClopidogrel 75 mg chyaetLetjwxwqzbsl34EZTOHosan December 10, 2023 12:30pmOctober 2023 2:57pmDoxazosin 4 mg tablet Vseoejdflxkb8NJOPZprifBbdu 13th, 2024 12:30pmNov2023 2:21pmDoxepin 10 mg qjxltcmOiljktdyamuf59XSROGxivg at bedtimeCataw[facility]2023 12:31pmOctober 2023 2:57pmFinasteride 5 mg blekxzYfxvvduqlhli1IXNGMqonsOksd 2023 12:31pm May 02, 2024 2:21pmFurosemide 40 mg wkecsfKkdhbwdhryli74RBERWfcazWdqv 2023 12:32pmNoveer 2023 2:21pmMetoprolol Succinate 50 mg tablet extended release 24 drMkbgccxwljjh40SRODDtebxSqjc 2023 12:33pmNov2023 2:21pmOmeprazole 40 mg capsule,delayed release(DR/EC)Xajqtikoxkof47YD PO.COMPLEX as neededJun2023 12:34pmNov2023 2:21pm40 mg orally PRN;Potassium Chloride (Klor-Con M20) 20 mEq tablet,ER particles/crystals Tatugytvmoad04RNVIUMsrczNwuf 2023 12:34pmNov2023 2:21pm Valacyclovir 500 mg rhiwsqZygxwhoibvjw462WWNSCygjiKmpg 2023 12:35pm May 02, 2024 2:21pmDoxepin 10 mg pcpugnrOfgxrlmtczdt90OTYFXjnsw at bedtime October 07, 2023 11:00pmApril 2023 12:27pmFreeTextSi capsule at bedtime Orally Once a day; Note: Source Status: Unknown; Refills: 1; Provider: Bonifacio Crowell ( )Sulfamethoxazole-Trimethoprim (Bactrim Ds) 800-160 mg zlmefvOypthwygaimh6HRRSGAytdb jpuzj98625Snmh 2023 11:00pmJanuary 2024 1:18pmClopidogrel 75 mg fqaluqSzufnu88MGNGHrvuePfm 5th, 2025 9:05amComplies with drug therapyIsosorbide Mononitrate 30 mg tablet extended release 24 hr Ecuxlokbeupr86XIPHUluqv47997Gcf 7th, 2025 8:26amAugust 2024 8:54amDoxepin 10 mg ybelmxgVknthrigebit83WASTVlvkt at dkpshlx70067Sof 7th, 2025 8:26amNovember 2024 9:52amFerrous Sulfate (Ferosul) 325 mg (65 mg iron) tablet Discontinued0.ROUTE.DDBLWLX580Ufi 7th, 2025 9:41amAugust 2024 8:54amTAKE 1 TABLET BY MOUTH DAILY WITH FOODClopidogrel 75 mg tabletDiscontinued0.ROUTE .COMPLEXJanuary 2024 1:19pmApril 2024 7:28amTAKE 1 TABLET DAILY Semaglutide (Ozempic) 2 mg/dose (8 mg/3 mL) pen wheriuwmHzxzmg7OKAXVWACblasw jqmi28Fxyl 2024 9:25amweight lossComplies with drug therapyTopiramate 25 mg ulwespWkqdgv08PIRGJsivt at ujjpmcz82969Wmlepib 2024 11:00pmChronic migraine without aura with status migrainosus, not intractable Chronic migraine without aura, not intractable, with status migrainosusComplies with drug therapyFremanezumab-Vfrm (Ajovy Autoinjector) 225 mg/1.5 mL auto-rbpexxbzIagnhn151ZUQLNWADsltiv month1.5305October 2024 11:00pmChronic migraine without aura with status migrainosus, not intractable Chronic migraine without aura, not intractable, with status migrainosusComplies with drug therapyPregabalin 200 mg wzswyrsRvqvewcvpeio205SOAFGqayg times daily 416301Ilivorf 2024 6:27pmOctober 2024 10:41amLumbar radicular syndrome Radiculopathy, lumbar regionQuetiapine 25 mg doiwrbYizvos38GVUWKnzfk at bedtime May 17, 2025 12:00amComplies with drug therapyPregabalin 200 mg capsule Mhimfq410HDDNTzgiq times hkpho073206Kdgrlql 2024 10:41amLumbar radicular syndrome Radiculopathy, lumbar regionComplies with drug therapy Immunizations Immunization Event Date Not Given Reason Dose Number [employer] Helper Lot Number Reason(s) Given Vaccine Information Statement (VIS) Detail Administration Location COVID-19 Ad26.COV2.S ([employer]) September 04, 2020 [id number] [facility]trCOVID-19 mRNA-1273 (Moderna)April 25OVID-19 Comirnaty (Pfizer) Tri-Sucrose +January 02OVID-19 mRNA Bivalent Booster (Pfizer)April 112COVID-19 (NOVAVAX) 12Y and olderOctober OVID-19 (PFIZER) 12Y and olderDecember 2022Fluzone TIV High-Dose 65YR+February 28, 2020Fluzone TIV High-Dose 65YR+ May 01, 2025U8859CAFPG [facility] [place]Influenza Quadrivalent PF MDCKOctober 2020Influenza, Recombinant, Injectable, PfOctober 2023 Pneumococcal Conjugate Vaccine, 20 valentNovember neumococcal Polysacc. Vaccine, 23 valentJune 2014Quadrivalent InfluenzaOctober 2016Quadrivalent InfluenzaOctober 2021Quadrivalent InfluenzaNovember 2022Quadrivalent InfluenzaAugust 2016Quadrivalent InfluenzaSeptember 2018Recombinant Influenza Vaccine QuadrivalentOctober 2019Recombinant Influenza Vaccine QuadrivalentFebruary ecombinant Influenza Vaccine QuadrivalentApril SV, bv, preFa and preFb, pfJanuary 2024Zoster Vaccine Recombinant, AdjuvantedOctober 2019Zoster Vaccine Recombinant, AdjuvantedDecember 2019Tetanus, Diphtheria, Pertussis (Tdap)March 28, 2011Tetanus, Diphtheria, Pertussis (Tdap)October 24, 2023Tetanus toxoid March 28, 2011Trivalent Influenza VaccineSeptember 2010Trivalent Influenza VaccineSeptember 2015Trivalent Influenza VaccineOctober 2017Trivalent Influenza VaccineOctober 2019Trivalent Influenza Vaccine April 25, 2021Trivalent Influenza VaccineOctober 2013Trivalent Influenza VaccineOctober 2021 Relevant Diagnostic Tests and/or Laboratory Data Laboratory Results Test Collection Date/Time Result Date/Time Result Interpretation Reference Range Result Comment Performing Site Corrected White Blood Count April 18, 2025 9:16am April 18, 2025 1:37pm 5.4 10*3/uL 4.1-10.5[facility] [id number] [address] [facility] 77671Aecrcpdqvdr WBC CountOct2024 9:16amOctober 2024 1:37pm5.4 10*3/uL4.1-10.5FW[facility] [id number] [address] [facility] 95189Ixj Blood CountOct2024 9:16amOctober 2024 1:37pm5.18 10*6/uL3.90-5.60[facility] [id number] [address] [facility] 07071IhdgwvihyaFzfjqlqkm 2024 12:45pmSeptember 2024 2:50pm 16.9 g/dL13.0-17.0[facility] [id number] [address] [facility] 29658DbicmxsycfPpiovtg 2024 9:16amOctober 2024 1:37pm 16.9 g/dL13.0-17.0[facility] [id number] [address] [facility] 55478OoivkrscpyVymbcmg 2024 9:16amOct2024 1:37pm 48.8 %38.8-50.0[facility] [id number] [address] [place] [address] 16715Rkap Corpuscular VolumeOctober 2024 9:16amOctober 2024 1:37pm94.2 fL83.5-101[facility] [id number] [address] [place] [address] 56677Zztb Corpuscular HemoglobinOctober 2024 9:16amOctober 2024 1:37pm32.7 pg27.5-35.2FWilson [facility] [id number] [address] [place] [address] 61621Wgct Corpuscular Hemoglobin ConcentOctober 2024 9:16am April 18, 2025 1:37pm34.6 g/dL32.5-35.6FW[facility] [id number] [address] [place] [address] 72806Sms Cell Distribution WidthOct2024 9:16amOctober 2024 1:37pm12.8 %12.0-14.8[facility] [id number] [address] [place] [address] 51389Sifwlebc CountOct2024 9:16amOctober 2024 1:38hw938 10*3/pY671-256QpsdxhkzpThe [facility] [id number] [address] [place] [address] 80701Sdrd Platelet VolumeOctober 2024 9:16amOctober 2024 1:37pm9.4 fL6.6-10.1FWilson [facility] [id number] [address] [place] [address] 61866Igovxmjcppz (%) (Auto)April 18, 2025 9:16amOctober 2024 1:37pm67.5 %.[facility] [id number] [address] [place] [address] 08738Laowgglzeyf (%) (Auto)April 18, 2025 9:16amOctober 2024 1:37pm16.2 %.[facility] [id number] [address] [facility] 88159Qsytdozsj (%) (Auto)April 18, 2025 9:16amOctober 2024 1:37pm11.9 %.[facility] [id number] [address] [facility] 71257Tkyjiuwyimw (%) (Auto)April 18, 2025 9:16amOctober 2024 1:37pm3.9 %.[facility] [id number] [address] [facility] 30194Pxpsocmpl (%) (Auto)April 18, 2025 9:16amOctober 2024 1:37pm0.5 %.[facility] [id number] [address] [facility] 98784Kvctmbutp RBC Relative Count (auto)April 18, 2025 9:16am April 18, 2025 1:37pm0.1 /100{WBC}0-0.5FWil[facility] [id number] [address] [place] [id number] # (Auto)April 18, 2025 9:16amOctober 2024 1:37pm3.6 10*3/uL1.8-7.7FW[facility] [id number] [address] [place], [place] [address]Lymphocytes # (Auto)April 18, 2025 9:16amOctober 2024 1:37pm0.9 10*3/uLBelow low normal1.00-4.8[facility] [id number] [address] [place] [address] 32994Gqzbzlgxp # (Auto)April 18, 2025 9:16amOctober 2024 1:37pm0.6 10*3/uL0.0-0.8[facility] [id number] [address] [facility] 44643Rfqyfqezioe # (Auto)April 18, 2025 9:16amOctober 2024 1:37pm0.2 10*3/uL0.0-0.45[facility] [id number] [address] [place] [address] 36368Svgtlanqz # (Auto)April 18, 2025 9:16amOctober 2024 1:37pm0.0 10*3/uL0.0-0.2FW[facility] [id number] [address] [place], [place] [address]Glucose LevelOctober 2024 9:16amOctober 2024 1:44pm 78 mg/kT55-241ZMS recommended reference rangeRandom Glucose Reference Range is dependent on time and content of last meal. Glucose of more than 200 mg/dL in a nonstressed, ambulatory subject supports the diagnosisof Diabetes Mellitus. [facility] [id number] [address] [place] [id number] Urea NitrogenOct2024 9:16amOctober 2024 1:44pm19 mg/dL7-25[facility] [id number] [address] [place] [id number] 2024 9:16amOctober 2024 1:44pm 1.30 mg/dL0.70-1.30[facility] [id number] [address] [place], [place] [address]Estimated GFR (CKD-EPI)April 18, 2025 9:16amOct2024 1:44pm> 60.0 mL/MinThe [facility] [id number] [address] [place], [place] [address]Sodium LevelOctober 2024 9:16amOctober 2024 1:44pm 136 mmol/E249-615UlowtzmqfThe [facility] [id number] [address] [place] [id number] LevelOctober 2024 9:16amOctober 2024 1:44pm4.3 mmol/L3.5-5.1FW[facility] [id number] [address] [place] [id number] LevelOctober 2024 9:16amOctober 2024 1:44pm99 mmol/D20-715NqhowmwopThe [facility] [id number] [address] [place], [place] [address]Carbon Dioxide LevelOctober 2024 9:16amOctober 2024 1:44pm31.7 mmol/LAbove high .0-31.0[facility] [id number] [address] [facility] 04298Zqqrn GapOctober 2024 9:16amOctober 2024 1:44pm9.6 mEq/L6.0-15.0[facility] [id number] [address] [facility] 37054Xehknnx LevelOctober 2024 9:16amOctober 2024 1:44pm 8.9 mg/dL8.6-10.3FW[facility] [id number] [address] [facility] 77689Imcbo ProteinOctober 2024 9:16amOctober 2024 1:44pm 6.6 g/dL6.4-8.9[facility] [id number] [address] [facility] 63070FphpfdlZyawizh 2024 9:16amOctober 2024 1:44pm4.6 g/dL3.5-5.7FW[facility] [id number] [address] [facility] 00726YbghcligZzvtvpt 2024 9:16amOctober 2024 1:44pm2.0 g/dLThe [facility] [id number] [address] [facility] 17690Nbgsppv/Globulin RatioOctober 2024 9:16amOctober 2024 1:44pm2.3FWil[facility] [id number] [address] [facility] 69306Ltzzt BilirubinOctober 2024 9:16amOctober 2024 1:44pm0.6 mg/dL0.3-1.0[facility] [id number] [address] [facility] 04784Jwxscl BilirubinOctober 2024 9:16amOctober 2024 1:44pm0.10 mg/dL0.03-0.18FW[facility] [id number] [address] [facility] 32817Cbqblbdq BilirubinOctober 2024 9:16amOctober 2024 1:44pm0.5 mg/dLThe [facility] [id number] [address] [facility] 58444Lmpklmxyo Amino Transf (AST/SGOT)April 18, 2025 9:16am April 18, 2025 1:44pm16 U/G04-83WpzrelaenThe [facility] Hospital Ctr [id number] [address] [facility] 36325Pfsymhx Aminotransferase (ALT/SGPT)April 18, 2025 9:16am April 18, 2025 1:44pm21 U/L7-52[facility] [id number] [address] [facility] 87413Ungdrtpj PhosphataseOct2024 9:16amOct2024 1:44pm55 U/M20-126EkczblvrvThe [facility] [id number] [address] [facility] 67109Zbatqdrmevj LevelOct2024 9:16amOctober 2024 1:68pq486 mg/cV009-942Xpop less than 200 mg/dl low riskChol 201-239 mg/dl borderline riskChol 240 mg/dl and greater high riskThe [facility] [id number] [address] [facility] 04103EFH CholesterolOct2024 9:16amOct2024 1:44pm40 mg/dF04-77LWR CHOL ATP-III CLASSIFICATION Cardiovascular RiskHDL > or equal to 60 mg/dL LOWHDL < 40 mg/dL HIGHThe [facility]vue Hospital Ctr [id number] [address] [place] [address] 25660Lsuudtzhojrdh LevelOct2024 9:16amOct2024 1:89ab698 mg/dLAbove high normal0-149TRIG ATP III CLASSIFICATIONTRIG less than 150 mg/dL NormalTRIG 150-199 mg/dL Borderline highTRIG 200-500 mg/dL High TRIG greater than 500 mg/dL Very highStandard traceable to the Center for Disease Co nrtrol and Prevention (CDC) test method.[facility] [id number] [address] [facility] 24167GQK Cholesterol, CalculatedOct2024 9:16amOctober 2024 1:44pm39 mg/dL0-100LDL ATP III CLASSIFICATIONLDL less than 100 mg/dL OptimalLDL 100-129 mg/dL Near or above ypcwboeGQR337-860 mg/dL Borderline highLDL 160-189 mg/dL HighLDL greater than 189 mg/dL Very highThe [facility]tr [id number] [address] [facility] [id number] CholesterolOct2024 9:16amOct2024 1:44pm68 mg/dLThe [facility] [id number] [address] [facility] 53991Rcgmidoggqj/HDL RatioOct2024 9:16amOct2024 1:44pm3.7<5.0[facility] [id number] [address] [facility] 70685Teeinhwyderg LevelSept2024 12:45pmSept2024 3:04pm2.90 ng/mL1.75-7.81[facility] [id number] [address] [facility] 29731Swghgorc Specific Antigen TotalSept2024 12:45pm February 28, 2025 3:08pm0.140 ng/mL0.000-4.000Serial tumor marker results determined by assays using different manufacturers or methods may not be comparable.[facility] nutrition services manager and method:MARIA TERESA [employer]EL DXI, CHEMILUMINESCENT IMMUNOASSAY.[facility] [id number] [address] [facility] 97160Bscfhqco Creatinine Clearance (ChemOctober 2024 9:16am April 18, 2025 1:44pmN/AFWilson [facility] [id number] [address] [facility] 98899Wkfhicclfw K6dAsjudmv2024 9:16amOct2024 3:34pm5.7 %Above high normal4.3-5.6Increased risk for diabetes: 5.7 - 6.4diabetes: >6.4glycemic control for adults with diabetes: <7.0[facility] [id number] [address] [facility] 32320Tqrloamkx Average GlucoseOct2024 9:16amOct2024 3:22ct952 mg/dLThe [facility] [id number] [address] [facility] [address] Vital Signs Vital Reading Result Reference Range Collection Date/Time Height 69 [in_i] April 18, 2025 7:14rhAonwxw006.18 kgOctober 2024 7:23amHeart Uujb946 /fpy65-696Iesnloc 21st, 2025 7:23amRespiratory rate16 /ozb70-83Mxwtvoz 21st, 2025 7:23amOxygen saturation by Pulse %95-100Oct2024 7:23amBP Sztkeznd718 mm[Hg]100-140Oct2024 7:23amBP Uczntomzk94 mm[Hg] 60-100Oct2024 7:23amBMI (Body Mass Index)42.3 kg/b8Bvsucno2024 7:23amHeart Rate85 /fbs86-120Jpnvcbh 2024 10:36amOxygen saturation by Pulse %95-100Oct2024 10:36amBP Zoopsket416 mm[Hg]100-140 April 24, 2025 10:36amBP Kzleoeuah12 mm[Hg]60-100October 2024 10:36am Haflxu35 [in_i]May 01, 2025 1:26ocTrahtn646.71 kgNov2024 1:27pm Body Raxellawszu39.0 [degF]97.6-99.0Nov2024 1:27pmHeart Rate69 /min 60-100May 01, 2025 1:27pmRespiratory rate16 /rnn96-95MvploczvMay 01, 2025 1:27pmOxygen saturation by Pulse getqowrr75 %95-100May 01, 2025 1:27pmBP Nykrfdre513 mm[Hg]100-140May 01, 2025 1:27pmBP Ebwwvogji16 mm[Hg]60-100 May 01, 2025 1:27pmBMI (Body Mass Index)41.5 kg/s1Aonhieww2024 1:68nfQjhght07 [in_i]May 17, 2025 1:37rsHebghn500.90 kgNovember 2024 1:32pmHeart Rate86 /qjv90-942Cgsarsix 2024 1:32pmRespiratory rate18 /wrs41-36Muqrsaul 2024 1:32pmOxygen saturation by Pulse feaazhfx65 %95-100 May 17, 2025 1:32pmBP Tczhlbkl695 mm[Hg]100-140May 17, 2025 1:32pm BP Deiolptju00 mm[Hg]60-100May 17, 2025 1:32pmBMI (Body Mass Index)40.9 kg/s8MnmeuayvMay 17, 2025 1:32pm Advance Directives Advance Directive Response Recorded Date/ Time Advance Directives No August 06, 2023 9:20am Insurance Providers Guarantor Richard Prieto Ayanna Address [address] [facility] [address]Sbkazaw Info.Home Phone: Coverage Status Update:2025 Payer Group Member ID Coverage Type Subscriber Relationship to Subscriber Effective Date Expiration Date Medicare [employer]IC HMO Id: [id number] L Ayanna Id: [id number] [address] [facility] [address] Home Phone: Email: [email or web address] [facility] Adv PFFS Id: [id number] L Ayanna Id: [id number] [address] [facility] [address] Home Phone: Email: [email or web address] Encounters Encounter Location(s) Arrival/Admit Date Discharge/Departure Date Discharge/Departure Disposition [facility]) [facility], [facility] 1:40pm February 28, 2025 1:41pm Discharged to home care or self care (routine discharge) Rosey Dubose MD Departed Physician/ Provider Office Visit -[facility] April 18, 2025 8:56am April 18, 2025 9:56am Discharged to home care or self care (routine discharge) ALVARADO Hilario Departed Clinical Lab [facility] April 18, 2025 10:13am April 18, 2025 10:14am Discharged to home care or self care (routine discharge) Socrates Valdovinos DO Departed Physician/ Provider Office Visit -[facility] April 24, 2025 11:33am April 24, 2025 12:06pm Discharged to home care or self care (routine discharge) Lori Nix DO Departed Physician/ Provider Office Visit -[facility] [place] May 01, 2025 12:59pm May 01, 2025 2:31pm Discharged to home care or self care (routine discharge) Socrates Valdovinos DO Departed Physician/ Provider Office Visit -[facility] May 17, 2025 1:12pm May 17, 2025 2:23pm Discharged to home care or self care (routine discharge) Rafael Holbrook MD Recent Diagnosis Onset Date Admit Date Cervical radiculopathy Unknown March 302024 8:56am Chronic migraine without aur a with status migrainosus, not intractable Unknown April 18, 2025 8:56am History of stroke Unknown April 18, 2025 8:56am Hyperreflexia Unknown April 18 8:56am Lumbosacral radiculopathy Unknown 2024 8:56am Myalgia Unknown April 18 8:56am Restless leg syndrome Unknown April 182024 8:56am Myalgia Unknown April 24 11:33am BMI 40.0-44.9, adult Unknown April 12:59pm Chronic back pain Unknown May 01, 2025 12:59pm Chronic insomnia Unknown May 01, 12:59pm Coronary artery disease invo lving [place] coronary artery of [place] heart Unknown May 01, 2025 12: 59pm Cyst of epididymis determined by ultrasound [facility] own May 01, 2025 12:59pm Essential hypertension Unknown May 01, 2025 12:59pm Impaired glucose tolerance Unknown 2024 12:59pm Mixed hyperlipidemia Unknown April 12:59pm 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 He is down 33.5 lbs. today. Start weight: 304.1 lbs. He is down 26.6 lbs. today with a weight of 277.5 lbs. 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 He had a negative recent colonoscopy. He should continue to take time to meal prep. He is still doing very good with regular exercise 1 hour a day at [employer] doing both strength and cardio. He should continue to treat with long-term lifestyle changes of improved nutrition, increased exercise and activity, stress reduction, adequate sleep and behavioral modification versus short-term dieting. We cannot consider phentermine with his history of possible CAD. He has considered the bariatric surgery program at the [facility]. 3. Prediabetes he had an A1c up to 6.2 but recent A1c better now normal at 5.4/he has had multiple blood sugars that have been in the diabetic range but may not been fasting. He notes at the [facility] he told he was diabetic. Continue [...] loss. 6. OA knees-treat with healthy exercise and weight loss. He is status post [...] GI. Plan of Treatment Author Socrates Valdovinos [facility] 2024 6:05pmWe discussed his frustration with ongoing obesity, ongoing weight gain, failure of medical bariatric care. Discussed Dr. Holbrook's thought about considering bariatric surgery. Patient is not sure he is ready for that. We discussed his lab testing is not that bad on current semaglutide and statin therapy. We also discussed he cannot have too many things done at once. He is anxious to get his back surgery done first. After he heals from that he will consider again whether he wants to consider bariatric surgery. Discussed ultimately it would be up to him. Appreciate neurology workup underway, await brain MRI Stable likely optimal baseline. Continue current CV secondary prevention including BP control, continue statin. He will continue with multiple specialists including [facility] neurology, [facility], [facility] neurosurgery. He is anxious to get his surgery at [facility] rescheduled as soon as possible. See dictation above See dictation above Continue with [facility] neurology. At least for now they were able to get him more Ajovy samples. Continue CPAP, sleep clinic. For now they are also managing his insomnia and he is currently off Ambien See dictation above stable appropriate statin dose Stable on current meds we discussed his hemoglobin A1c has normalized. He will continue with Dr. Holbrook continue semaglutide, focus on healthy diet and weight Despite his polypharmacy, I do agree his duloxetine should not be reduced. Currently he is having a situational flare of his chronic mixed anxiety and depression. I did discuss consider counseling or referral again. He does not want to do so at this time. If he changes his mind, we will refer again to [facility]. Discussed I do not know whether it would be free or low-cost as before. His cardiac catheterization was normal. He does continue on metoprolol. I do not see that he is on nitrates now. He will continue with [facility]. He did not complain of chest pain today and therefore I did not pursue workup looking at other potential causes. He is on omeprazole. Observe. Appreciate urology help He states he has been bleeding for 2 days. It looks well-controlled. My staff put on antibiotic ointment, gauze, pressure dressing. He should continue the same thing at home changing it daily and sooner as needed. If it does continue to bleed he should promptly go to the emergency room. Discussed they have some products that we do not have in the office to try to stop bleeding. He also may need further workup including x-ray and evaluation for deeper laceration/internal derangement but I do not see evidence of that on today's exam. I did suggest see me in 2 weeks for follow-up to clarify healing. He declined and states he will call for recheck here if it does not heal. I strongly stressed worrisome symptoms or reason for emergency room if needed. As above, we got the report from the company that Cologuard was done but I cannot find the actual result. I will have my staff try to find it. RTO 6 months preceded by fasting CBC, BMP, hepatic panel, lipid profile, hemoglobin A1c, iron (on ferrous sulfate) and sooner as needed. I repeated full lab panel because of his medical complexity. Author Mia Otto [facility] HospitalAuthoredOctober 2024 6:39pmIt is my impression that the patient has chronic migraine without aura. The patient reports having approximately 18-20 migraine days per month recently. His migraines were previously well managed on Ajovy and Botox, however, he stopped both of these in early 2024 due to cost. He has tried and failed Elavil, nortriptyline, duloxetine, metoprolol, Trileptal, Lyrica, gabapentin, baclofen, Aimovig (decreased efficacy over time), Ubrelvy (ineffective), Cambia, Maxalt for migraine management without success. I believe he could benefit from a medication adjustment to help improve symptom control. PLAN - Stop Botox. The patient's most recent Botox injections were on 08/03/2024. Although highly effective, this is no longer affordable per patient report - Continue Ajovy 225 mg subcutaneous once every 30 days for migraine prevention. I provided the patient with 2 samples of Ajovy today. I will ask staff to look in this prescription to determine if a prior authorization may be needed - Start low dose topiramate 25 mg by mouth daily at bedtime for migraine prevention. I counseled the patient on possible adverse effects of this medication in detail including [employer]SEM[employer] MACHINE OPERATOR effects and kidney stones. He verbalizes understanding and wishes to proceed - Try to ensure adequate hydration, adequate sleep, regular physical exercise as tolerated, and stress management - Avoid triptans due to history of stroke - Avoid additional NSAIDs, as the patient is currently taking aspirin and Plavix It is my impression that the patient has lumbosacral radiculopathy. He reports symptoms clinically consistent with this. The patient reports chronic low back pain with intermittent radiation to the left S1 dermatomal distribution. He also reports chronic numbness in the left foot and intermittent weakness in the left lower extremity. Though, no objective weakness is noted on physical exam today. The patient is currently taking Lyrica and duloxetine and believes these are both helpful for symptom management. However, symptoms persist. He is established with pain management and [facility] neurosurgery. Reportedly, he is scheduled for neurosurgical intervention on 05/26/[address] Banks. He does have a history of multiple lumbar spine surgeries with inadequate bone healing felt to be contributing to his pain and discomfort. PLAN: - Continue Lyrica 200 mg three times a day for neuropathic pain. [place]AR[place] reviewed - Continue duloxetine 60 mg mouth twice a day for musculoskeletal pain (patient reports improved efficacy with 60 mg PO BID dosing as compared to 60 mg daily dosing) - Follow up closely with [facility] pain management and [facility] neurosurgery per their recommendations History of RLS. The patient has a history of lumbar DDD lumbosacral radiculopathy which may be contributory to this. RLS symptoms remains stable on the current doses of ropinirole and Lyrica per patient report. He has followed with his PCP for iron supplementation. PLAN: - Continue ropinirole 1 mg by mouth daily at bedtime - Continue Lyrica as detailed above - Follow-up with primary care provider for management of iron levels The patient has tenderness to palpation of the bilateral paraspinal trapezius muscles on physical exam today with trigger points identified. He underwent trigger point injections on 10/27/2024 and states these effectively reduced his symptoms. They were also well-tolerated. PLAN: - Schedule for repeat trigger point injections. 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 He is maintained on aspirin and Plavix and denies any new signs or symptoms of stroke since the prior neurology appointment. Carotid ultrasound on 09/08/2024 revealed no hemodynamically significant stenosis. PLAN: - Continue aspirin 81 mg by mouth daily and Plavix 75 mg mouth daily for secondary stroke prevention - Continue atorvastatin (management per cardiology; goal LDL less than 70) - Avoid tobacco use and limit alcohol intake - Follow-up closely with primary care provider and cardiology for management of blood pressure, cholesterol levels, and blood glucose - Patient to seek immediate evaluation in the emergency department should he develop any new signs or symptoms of stroke in the future [facility] on 02/18/2024 identified evidence of right carpal tunnel syndrome (minimal) and a remote C5 motor radiculopathy on the left. PLAN: - Plan to address in more detail at a future appointment The patient is hyperreflexic on physical exam. MRI of the cervical spine on 06/25/2024 did not mention evidence of cervical myelopathy or spinal cord compression to explain this. PLAN: - MRI of the brain to evaluate for an intracranial abnormality which could explain the patient's symptoms Diagnoses and treatment plan discussed. The patient verbalizes understanding and is agreeable to the plan. All questions answered. Author Darwin Carson [facility] HospitalAuthoredOctober 2024 10:48amBilateral trapezius and bilateral cervical paraspinal musculature injected today. Future Tests Future scheduled test information is unavailable Pending Tests Test Name Ordered Date Scheduled Date MR head/brain wo/w con April 18, 2025 6:39pm Future Visits Future appointment information is unavailable Future Procedures Procedure Name Ordered Date Scheduled Date A1C with Estimated Average Glu May 01 6:33pm 6 Months Basic Metabolic Panel May 01, 2025 6:33pm 6 Months Complete Blood Count Auto Diff May 01 6:33pm 6 Months Iron May 01, 2025 6:33pm 6 Guero hs Hepatic Panel May 01, 2025 6:33pm 6 [facility]ero hs Lipid Panel May 01, 2025 6:33pm 6 Guero hs Future Medications Future medication information is unavailable Patient Instructions Instruction Admit Date High blood pressure in adults May 012024 12:59pm
--- OUTSIDE RECORDS SUMMARY | 2025-05-19 08:59 | XMS_ITS | Encounter Summary ---
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 Name Role Phone Socrates Valdovinos DO Primary Care Provider [phone] Wilton Feliz MD Unavailable [phone] Source Comments In the event this information is protected by the Federal Confidentiality of Alcohol and Drug AbusePatient Records regulations: The Federal rules restrict any use of the information to criminally investigate or prosecute any alcohol or drug abuse patient.[facility] Reason for Visit * MRI/CT (Routine) - ClosedSpecialtyDiagnoses / ProceduresReferred By Contact Referred To ContactCT IMAGING Diagnoses Lumbar pseudoarthrosis Procedures CT ABDOMEN WO IVCON CT ABDOMEN W/O CONTRAST Shree Banks MD [address] [place] [address] Phone: tel: fax: [place] [address] Referral IDStatusReasonStart DateExpiration DateVisits RequestedVisits [id number] Auto-Generated Referral Encounter Details DateTypeDepartmentCare Team (Latest Contact Info)Ovlxbdpxdrn08/21/2025 8:59 AM EST - 05/19/2025 11:59 PM ESTHospital Encounter Radiology [address], [place] [id number] Discharge Disposition: Home Social History Tobacco UseTypesPacks/DayYears UsedDateSmoking Tobacco: NeverSmokeless Tobacco: NeverAlcohol UseStandard Drinks/WeekCommentsYes0 (1 standard drink = 0.6 oz pure alcohol)2 glasses of wine per day.Overall Financial Resource Strain (CARDIA) AnswerDate RecordedHow hard is it for you to pay for the very basics like food, housing, medical care, and heating?Not hard at all11/22/2021HQ-2AnswerDate RecordedPHQ-2 iefry692Hunger Vital SignAnswerDate RecordedWithin the past 12 months, you worried that your food would run out before you got the money to buymore.Never true11/22/2021Within the past 12 months, the food you bought just didn't last and you didn't have money to get more.Never true 11/22/2021RAPARE - TransportationAnswerDate RecordedIn the past 12 months, has lack of transportation kept you from medical appointments or from getting medications?No11/22/2021In the past 12 months, has lack of transportation kept you from meetings, work, or from getting things needed for daily living?No 11/22/2021Housing Stability Vital SignAnswerDate RecordedIn the last 12 months, was there a time when you were not able to pay the mortgage or rent on time?No 11/22/2021In the last 12 months, how many places have you lived?In the last 12 months, was there a time when you did not have a steady place to sleep or slept in ashelter (including now)?No11/22/2021rea Deprivation Index AnswerDate RecordedNational Score (1-100), lower number is lower risk87 07/20/2024State Score (1-10), lower number is lower xfwu23507/20/2024Data from: https://www.neighborhoodatlas.medicine.[facility]/. Last address used for [address]/20/[birth year]24Sex and Gender InformationValueDate Recorded Sex Assigned at RsvqkGznn02/02/2021 2:16 PM EDTLegal CbeGyhk43/02/2012 9:02 AM ESTGender YheevhpoJktb92/02/2021 2:16 PM EDTSexual ApfxfpzlayyRdfuwtae97/02/2021 2:16 PM EDTdocumented as of this encounter Functional Status * Are you deaf or do you have serious difficulty hearing?AnswerDate of WlzvdwrxlePjkyqvPf16/11/2022 6:27 PM Radha Olmedo RN * Are you blind or do you have serious difficulty seeing, even when wearing glasses?AnswerDate of AnuhubgfmvWxqtgrWi94/11/2022 6:27 PM Radha Olmedo RN * Do you have serious difficulty walking or climbing stairs?AnswerDate of JadlcvnkymVizvgyQm50/11/2022 6:27 PM Radha Olmedo RN * Do you have difficulty dressing or bathing?AnswerDate of AssessmentAuthorNo 01/06/2022 6:27 PM Radha Olmedo RN * Because of a physical, mental, or emotional condition, do you have difficulty doing errands alone such as visiting a doctor's office or shopping?AnswerDate of ViycqcnpscUvkaivSw30/11/2022 6:27 PM Radha Olmedo RN documented as of this encounter Mental Status * Because of a physical, mental, or emotional condition, do you have serious difficulty concentrating, remembering, or making decisions?AnswerEntry Date IkcditMn31/11/2022 6:27 PM Radha Olmedo RN documented in this encounter Medications at Time of Discharge MedicationSigDispense QuantityRefillsLast FilledStart DateEnd Date mupirocin (BACTROBAN) 2 % ointment Apply 1/2 ointment with a cotton swab in each nostril 2x daily for five days preop Patient should start on July 09, 2025. 22 g 6007/13/2025 QUEtiapine (SEROQUEL) 25 mg tablet Take 1 tablet by mouth daily at bedtime. 30 tablet 03/08/2025 methocarbamol (ROBAXIN) 500 mg tablet Take 1,000 mg by mouth.09/24/2021 HYDROcodone-Acetaminophen (NORCO) 7.5-325 mg per tablet Take 1 tablet by mouth every 8 hours as needed for pain.0 clopidogrel (PLAVIX) 75 mg tablet Take 1 tablet by mouth once daily. Please hold this medication until post op day telmisartan (MICARDIS) 80 mg tablet Take 80 mg by mouth once daily. 12/11/2021 docusate sodium (COLACE) 100 mg capsule Take 1 capsule by mouth twice daily.08/20/2021 docosahexaenoic acid/epa (FISH OIL ORAL) Take 5 [...] for 90 mg total dose. 30 capsule baclofen (LIORESAL) 20 mg tablet Indications:Stroke (HCC),HeadacheTake 20 mg by mouth daily at bedtime. 05/30/2014 furosemide (LASIX) 40 mg tablet Indications:Stroke (HCC),HeadacheTake 40 mg by mouth once daily.05/29/2014 doxazosin (CARDURA) 4 mg tablet Indications:Stroke (HCC),HeadacheTake 4 mg by mouth once daily. 05/01/2014 metoprolol succinate XL, long acting, (TOPROL XL) 50 mg 24 hr tablet Indications:Stroke (HCC),HeadacheTake 50 mg by mouth once daily.06/06/2014 cyanocobalamin (VITAMIN B-12) 1,000 mcg tab Indications:Stroke (HCC),HeadacheTake 1,000 mcg by mouth once daily. fluticasone (FLONASE) 50 mcg/actuation nasal spray Indications:Stroke (HCC),HeadacheUse 2 Sprays in each nostril twice daily. methylPREDNISolone (MEDROL, JOAQUÍN,) 4 mg Dose-Pack As instructed per package 21 tablet 5107/23/2024documented as of this encounter Plan of Treatment DateTypeDepartmentCare Team (Latest Contact Info)Opnzjvekzhz28/19/2025 1:00 PM ESTPAT Pre Anesthesia [address] [place] [address] 2, Pacc Philipp [address] [place] [id number] pre-admission tpowdew4607/03/2025 10:00 AM ESTOffice Visit Financial Clearance Phone Screening [facility] [phone]/16/2026 7:30 AM ESTHospital Encounter Admitting [address] [place] [id number] Shree Banks MD [address] [place] [id number] Lumbar pseudoarthrosis [S32.009K]07/14/2025 7:30 AM ESTAnesthesia Event Admitting [address] [place] [address] Emely Fox, Research Coordinator 07/14/2025 7:30 AM EST - 07/14/2025 4:30 PM ESTSurgery Admitting [address] [id number] Shree Banks MD [address] [place] [id number] ALIF DECOMPRESSION LAMINECTOMY INTERBODY FUSION LUMBAR LEVEL 1:00 PM ESTOffice Visit Neurosurgery [address] [place] [address] Lea Ortega PA-C [address] [place] [address] post op follow upNamePriorityAssociated DiagnosesDate/TimeALIF DECOMPRESSION LAMINECTOMY INTERBODY FUSION LUMBAR LEVEL 1 Lumbar pseudoarthrosis 07/14/2025 7:30 AM ESTINSERTION INTERBODY BIOMED DEVICE(S) W/ANT INSTR ANCHORING TO DISC SPACE W/INTERBODY FUSION,EA INTERSPACE Lumbar pseudoarthrosis 07/14/2025 7:30 AM ESTPOSTERIOR SEGMENTAL INSTRUMENTATION FOLLOWING LUMBAR FUSION 3-6 LEVELS Lumbar pseudoarthrosis 07/14/2025 7:30 AM ESTSPINE ALLOGRAFT Lumbar pseudoarthrosis 07/14/2025 7:30 AM ESTINSERT PELVIC FIXATION DEVICE Lumbar pseudoarthrosis 07/14/2025 7:30 AM ESTARTHRODESIS LUMBAR POSTERIOR/POSTERIOR LAT 2ND LEVEL Lumbar pseudoarthrosis 07/14/2025 7:30 AM ESTALIF DECOMPRESSION LAMINECTOMY INTERBODY FUSION LUMBAR LEVEL 1 Lumbar pseudoarthrosis 07/14/2025 7:30 AM ESTdocumented as of this encounter Goals GoalPatient Goal TypeAssociated ProblemsRecent ProgressPatient-Stated?Author Autogenerated Goal Care PlanAutogenerated ProblemNoYonisAster borrego Cdocumented as of this encounter Visit Diagnoses Not on filedocumented in this encounter Additional Health Concerns Active ProblemsNoted DateDiagnosed DateAutogenerated Azmhfzk7305/15/2025documented as of this encounter Care Teams Team MemberRelationshipSpecialtyStart DateEnd Date Socrates Valdovinos DO [address] [place] [address] PCP - General02/04/10 Wilton Feliz MD [address] [facility] [address] [place] [address] Neurology08/23/24documented as of this encounter
--- OUTSIDE RECORDS SUMMARY | 2025-05-19 08:59 | XMS_ITS | Encounter Summary ---
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 Name Role Phone Socrates Valdovinos DO Primary Care Provider [phone] Wilton Feliz MD Unavailable [phone] Source Comments In the event this information is protected by the Federal Confidentiality of Alcohol and Drug AbusePatient Records regulations: The Federal rules restrict any use of the information to criminally investigate or prosecute any alcohol or drug abuse patient.[facility] Reason for Referral * MRI/CT (Routine) - ClosedSpecialtyDiagnoses / ProceduresReferred By Contact Referred To ContactCT IMAGING Diagnoses Lumbar pseudoarthrosis Procedures CT ABDOMEN WO IVCON CT ABDOMEN W/O CONTRAST Shree Steele MD [address] [place] [address] Phone: tel: fax: [place] [address] Referral IDStatusKtCoats DateExpiration DateVisits RequestedVisits [id number] Auto-Generated Referral Reason for Visit * MRI/CT (Routine) - ClosedSpecialtyDiagnoses / ProceduresReferred By Contact Referred To ContactCT IMAGING Diagnoses Lumbar pseudoarthrosis Procedures CT ABDOMEN WO IVCON CT ABDOMEN W/O CONTRAST Shree Steele MD [address] [place] [address] Phone: tel: fax: [place] [address] Referral IDStaNahid DateExpiration DateVisits RequestedVisits [id number] Auto-Generated Referral Encounter Details DateTypeDepartmentCare Team (Latest Contact Info)Srrbjympgmj30/21/2025 8:59 AM EST - 05/19/2025 11:59 PM ESTHospital Encounter Radiology [address] [place], [place] [id number] Lumbar pseudoarthrosis [S32.009K] Discharge Disposition: Home Social History Tobacco UseTypesPacks/DayYears UsedDateSmoking Tobacco: NeverSmokeless Tobacco: NeverAlcohol UseStandard Drinks/WeekCommentsYes0 (1 standard drink = 0.6 oz pure alcohol)2 glasses of wine per day.Overall Financial Resource Strain (CARDIA) AnswerDate RecordedHow hard is it for you to pay for the very basics like food, housing, medical care, and heating?Not hard at all11/22/2021HQ-2AnswerDate RecordedPHQ-2 gfvrq560Hunger Vital SignAnswerDate RecordedWithin the past 12 months, [...] 07/20/2024State Score (1-10), lower number is lower fafx94107/20/2024Data from: https://www.neighborhoodatlas.[facility].edu/. Last address used for [address] [facility]07/20/2024Sex and Gender InformationValueDate Recorded Sex Assigned at RgsfdRaay00/02/2021 2:16 PM EDTLegal NovWjdd12/02/2012 9:02 AM ESTGender UtlwjzxxAvef51/02/2021 2:16 PM EDTSexual WkuidvshmkxUzztjbsf32/02/2021 2:16 PM EDTdocumented as of this encounter Functional Status * Are you deaf or do you have serious difficulty hearing?AnswerDate of XyajspgoxwHfevzaDi67/11/2022 6:27 PM Radha Olmedo RN * Are you blind or do you have serious difficulty seeing, even when wearing glasses?AnswerDate of JafnupmnfnDtpglvPb47/11/2022 6:27 PM Radha Olmedo RN * Do you have serious difficulty walking or climbing stairs?AnswerDate of ArqgmgiabwDzrqniUz95/11/2022 6:27 PM Radha Olmedo RN * Do you have difficulty dressing or bathing?AnswerDate of AssessmentAuthorNo 01/06/2022 6:27 PM Radha Olmedo RN * Because of a physical, mental, or emotional condition, do you have difficulty doing errands alone such as visiting a doctor's office or shopping?AnswerDate of OqoivzduxrXdxlxcKh77/11/2022 6:27 PM Radha Olmedo RN documented as of this encounter Mental Status * Because of a physical, mental, or emotional condition, do you have serious difficulty concentrating, remembering, or making decisions?AnswerEntry Date MglvieKr05/11/2022 6:27 PM Radha Olmedo RN documented in this encounter Medications at Time of Discharge MedicationSigDispense QuantityRefillsLast FilledStart DateEnd Date mupirocin (BACTROBAN) 2 % ointment Apply 1/2 ointment with a cotton swab in each nostril 2x daily for five days preop Patient should start on July 09, 2025. 22 g QUEtiapine (SEROQUEL) 25 mg tablet Take 1 [...] Dose-Pack As instructed per package 21 tablet /documented as of this encounter Procedure Notes * Shireen Venegas, RT(R) - 05/19/2025 10:30 AM EST Radiology Service Progress Note PATIENT NAME: Richard Urena DATE OF SERVICE: May 19, 2025 TIME: 9:01 AM PATIENT IDENTITY VERIFICATION COMPLETED USING TWO (2) IDENTIFIERS: Name and Date of confirmedby patient verbally and Name and Date of confirmed by identification band. FALL SCREENING: Has the patient had 2 falls in the last year or 1 fall with injury or currently using an Ambulatory Assistive Device (Walker, Cane, Wheelchair, Crutches, etc.)? No PATIENT GENDER DATA: Assigned male at PATIENT RELEVANT IMPLANT DATA REVIEWED: Not Applicable PATIENT PRESENTS WITH AN IMPLANTABLE OR ATTACHED DIRECTOR OF RECRUITMENT AND ADMISSIONS: No RADIOLOGY DEPARTMENT: CT; Exam(s) Completed: Abdomen. Anesthesia: No PERIPHERAL IV DATA: Not applicable SIGNED BY: RT Neris(R) May 19, 2025 9:01 AM documented in this encounter Plan of Treatment DateTypeDepartmentCare Team (Latest Contact Info)Pzttanwqtwd84/19/2025 1:00 PM ESTPAT Pre Anesthesia [address] [place] [address] 2, Pacc [place] [address] [place] [address] pre-admission vereofx7407/03/2025 10:00 AM ESTOffice Visit Financial Clearance Phone Screening [facility] [facility] [phone]/16/2026 7:30 AM ESTHospital Encounter Admitting [address] [place] [address] Shree Steele MD [address] [place] [address] Lumbar pseudoarthrosis [S32.009K]07/14/2025 7:30 AM ESTAnesthesia Event Admitting [address] [place] [address] Emely Fox, Research Coordinator 07/14/2025 7:30 AM EST - 07/14/2025 4:30 PM ESTSurgery Admitting [address] [place] [address] Shree Steele MD [address] [place] [address] ALIF DECOMPRESSION LAMINECTOMY INTERBODY FUSION LUMBAR LEVEL 1:00 PM ESTOffice Visit Neurosurgery [address] [place] [address] Lea Ortega PA-C [address] [place] [address] post op follow upNamePriorityAssociated DiagnosesDate/TimeALIF DECOMPRESSION LAMINECTOMY [...] TypeAssociated ProblemsRecent ProgressPatient-Stated?Author Autogenerated Goal Care PlanAutogenerated ProblemNoAster Spears Cdocumented as of this encounter Procedures Procedure NamePriorityDate/TimeAssociated DiagnosisCommentsCT ABDOMEN WO IVCON Akfwkul9305/19/2025 9:09 AM EST Lumbar pseudoarthrosis documented in this encounter Results * CT ABDOMEN WO IVCON (05/19/2025 9:09 AM EST)Anatomical RegionLaterality ModalityAbdomenComputed TomographySpecimen (Source)Anatomical Location / LateralityCollection Method / VolumeCollection TimeReceived Time05/19/2025 9:09 AM EST Impressions 05/19/2025 3:23 PM EST IMPRESSION: 1. ??Indeterminate mildly dilated small bowel loops in the right midabdomen measuring up to 3.7 cm in diameter. ??Differential diagnosis includes prominent peristalsis, partial small bowel obstruction and ileus. ??Recommend clinical correlation. 2. ??Diverticulosis of the visualized colon without evidence of diverticulitis. 3. ??Nonobstructing renal stones. Transcribe Date/Time: May 19 2025 ??3:12P Dictated by: REBECCA MCGOVERN MD This examination was interpreted and the report reviewed and electronically signed by: REBECCA MCGOVERN MD on May 19 2025 ??3:21PM ??EST Thank you for allowing us to participate in the care of your patient. Should there be any questions regarding this interpretation, please call [phone]. If you are unable to reach us at the number above, please feel free to contact [facility] at [phone]. Narrative 05/19/2025 3:23 PM EST * * *Final Report* * * DATE OF EXAM: May 19 2025 ??9:09AM ?? LNC ?? 0534 ??- ??CT ABDOMEN WO IVCON ??/ PROCEDURE REASON: Lumbar pseudoarthrosis ? * * * * Physician Interpretation * * * * RESULT: EXAMINATION: ??CT ABDOMEN WITHOUT IV CONTRAST CLINICAL HISTORY: ??Lumbar pseudoarthrosis TECHNIQUE: Non-IV contrast imaging of the abdomen was performed using standard technique, scanning from just above the dome of the diaphragm to the iliac crest. ??Unenhanced imaging is limited for the evaluation of some intra-abdominal pathology. MQ: ??CTAbdWO_3 Contrast: IV: None : ml of CT Radiation dose: Integrated Dose-length product (DLP) for this visit = ?? 1073 mGy*cm. CT Dose Reduction Employed: Automated exposure control (AEC) COMPARISON: Lumbar spine CT scan dated 08/09/24. RESULT: Liver: No evidence of a mass as limited by noncontrast technique. . Biliary: The gallbladder is unremarkable. Spleen: No splenomegaly. Pancreas: No evidence of a mass as limited by noncontrast technique. . Adrenals: No mass. Kidneys: Nonobstructing renal stones measuring up to 2 mm. ??Punctate nonobstructing left renal stones measuring up to 3 mm. Bilateral renal cysts, some which are hyperdense. GI Tract: The stomach is distended with food material. ??Indeterminate mildly dilated loops of small bowel noted in the right midabdomen measuring up to 3.7 cm in diameter (3:99). ??Distal small bowel loops are decompressed. ??Diverticulosis of the visualized sigmoid colon without evidence of diverticulitis. ??No evidence of appendicitis. Lymph Nodes: No lymphadenopathy. Mesentery/peritoneum: No ascites. Retroperitoneum: No mass. Vasculature: Arterial atherosclerotic disease without aneurysm. Bones/Soft Tissues: Postoperative changes in the spine and sacrum are partially visualized. Lower thorax: No focal consolidation. Localizer images: No additional findings. COMMUNICATION: ??Communicated with SHREE STEELE on 05/19/2025 3:19 PM ?? via verbal communication. Procedure Note Provider, [facility] [place] - 05/19/2025 * * *Final Report* * * DATE OF EXAM: May 19 2025 9:09AM [facility] 0534 - CT ABDOMEN WO IVCON / PROCEDURE REASON: Lumbar pseudoarthrosis * * * * Physician Interpretation * * * * RESULT: EXAMINATION: CT ABDOMEN WITHOUT IV CONTRAST CLINICAL HISTORY: Lumbar pseudoarthrosis TECHNIQUE: Non-IV contrast imaging of the abdomen was performed using standard technique, scanning from just above the dome of the diaphragm to the iliac crest. Unenhanced imaging is limited for the evaluation of some intra-abdominal pathology. MQ: CTAbdWO_3 Contrast: IV: None : ml of CT Radiation dose: Integrated Dose-length product (DLP) for this visit = 1073 mGy*cm. CT Dose Reduction Employed: Automated exposure control (AEC) COMPARISON: Lumbar spine CT scan dated 08/09/24. RESULT: Liver: No evidence of a mass as limited by noncontrast technique. . Biliary: The gallbladder is unremarkable. Spleen: No splenomegaly. Pancreas: No evidence of a mass as limited by noncontrast technique. . Adrenals: No mass. Kidneys: Nonobstructing renal stones measuring up to 2 mm. Punctate nonobstructing left renal stones measuring up to 3 mm. Bilateral renal cysts, some which are hyperdense. GI Tract: The stomach is distended with food material. Indeterminate mildly dilated loops of small bowel noted in the right midabdomen measuring up to 3.7 cm in diameter (3:99). Distal small bowel loops are decompressed. Diverticulosis of the visualized sigmoid colon without evidence of diverticulitis. No evidence of appendicitis. Lymph Nodes: No lymphadenopathy. Mesentery/peritoneum: No ascites. Retroperitoneum: No mass. Vasculature: Arterial atherosclerotic disease without aneurysm. Bones/Soft Tissues: Postoperative changes in the spine and sacrum are partially visualized. Lower thorax: No focal consolidation. Localizer images: No additional findings. COMMUNICATION: Communicated with SHREE STEELE on 05/19/2025 3:19 PM via verbal communication. IMPRESSION IMPRESSION: 1. Indeterminate mildly dilated small bowel loops in the right midabdomen measuring up to 3.7 cm in diameter. Differential diagnosis includes prominent peristalsis, partial small bowel obstruction and ileus. Recommend clinical correlation. 2. Diverticulosis of the visualized colon without evidence of diverticulitis. 3. Nonobstructing renal stones. Transcribe Date/Time: May 19 2025 3:12P Dictated by: REBECCA MCGOVERN MD This examination was interpreted and the report reviewed and electronically signed by: REBECCA MCGOVERN MD on May 19 2025 3:21PM EST Thank you for allowing us to participate in the care of your patient. Should there be any questions regarding this interpretation, please call [phone]. If you are unable to reach us at the number above, please feel free to contact [facility] at [phone]. Authorizing ProviderResult TypeResult StatusShree Steele MDCT-PAMAFinal Result documented in this encounter Visit Diagnoses Diagnosis Lumbar pseudoarthrosis Nonunion of fracture Lumbar pseudoarthrosis Nonunion of fracture documented in this encounter Additional Health Concerns Active ProblemsNoted DateDiagnosed DateAutogenerated Zesxnyy4005/15/2025documented as of this encounter Care Teams Team MemberRelationshipSpecialtyStart DateEnd Date Socrates Valdovinos DO [address] [place] [address] PCP - General02/04/10 Wilton Feliz MD [address] [facility] [address] [place] [address] Neurology08/23/24documented as of this encounter
--- OUTSIDE RECORDS SUMMARY | 2025-05-31 10:54 | XMS_ITS | Encounter Summary ---
Author Organization [facility] Address [address] [place] [address] Care Team Providers Care Supervisor Decorating Name Role Phone Socrates Valdovinos DO Primary Care Provider [phone] Wilton Feliz MD Unavailable [phone] Source Comments In the event this information is protected by the Federal Confidentiality of Alcohol and Drug AbusePatient Records regulations: The Federal rules restrict any use of the information to criminally investigate or prosecute any alcohol or drug abuse patient.[facility] Encounter Details DateTypeDepartmentCare Team (Latest Contact Info)Urydnxuaxtl05/03/2025 Get Medical Advice Neurosurgery [address] [place] [address] Shree Banks MD [address] [place] [address] scan Social History Tobacco UseTypesPacks/DayYears UsedDateSmoking Tobacco: NeverSmokeless Tobacco: NeverAlcohol UseStandard Drinks/WeekCommentsYes0 (1 standard drink = 0.6 oz pure alcohol)2 glasses of wine per day.Overall Financial Resource Strain (CARDIA) AnswerDate RecordedHow hard is it for you to pay for the very basics like food, housing, medical care, and heating?Not hard at all11/22/2021HQ-2AnswerDate RecordedPHQ-2 oldka822Hunger Vital SignAnswerDate RecordedWithin the past 12 months, [...] 07/20/2024State Score (1-10), lower number is lower anrk40907/20/2024Data from: https://www.neighborhoodatlas.[facility].edu/. Last address used for [address]/20/2024Sex and Gender InformationValueDate Recorded Sex Assigned at GnecxIhkt70/02/2021 2:16 PM EDTLegal QssAbfk42/02/2012 9:02 AM ESTGender PjrjnwxbLzei12/02/2021 2:16 PM EDTSexual OkvfgzgfwriXgustpgu79/02/2021 2:16 PM EDTdocumented as of this encounter Functional Status * Are you deaf or do you have serious difficulty hearing?AnswerDate of CyhzndppleJyjseyDm93/11/2022 6:27 PM Radha Olmedo RN * Are you blind or do you have serious difficulty seeing, even when wearing glasses?AnswerDate of LohtiaekveMovrgyXi40/11/2022 6:27 PM Radha Olmedo RN * Do you have serious difficulty walking or climbing stairs?AnswerDate of XdomrqbjmzKgzoqwFa44/11/2022 6:27 PM Radha Olmedo RN * Do you have difficulty dressing or bathing?AnswerDate of AssessmentAuthorNo 01/06/2022 6:27 PM Radha Olmedo RN * Because of a physical, mental, or emotional condition, do you have difficulty doing errands alone such as visiting a doctor's office or shopping?AnswerDate of ZzageeuvhlQmnrvnEn83/11/2022 6:27 PM Radha Olmedo RN documented as of this encounter Mental Status * Because of a physical, mental, or emotional condition, do you have serious difficulty concentrating, remembering, or making decisions?AnswerEntry Date VtnktfTk50/11/2022 6:27 PM Radha Olmedo RN documented in this encounter Miscellaneous Notes * Addendum Note - Venessa Suarez APRN.CNP - 05/17/2025 2:52 PM ESTAddended by: VENESSA SUAREZ on: 05/17/2025 02:52 PM Modules accepted: Orders * Addendum Note - Rachna Hall RN - 05/17/2025 9:25 AM ESTAddended by: RACHNA HALL on: 05/17/2025 09:25 AM Modules accepted: Orders documented in this encounter Plan of Treatment DateTypeDepartmentCare Team (Latest Contact Info)Rrvvsuyzppg53/19/2025 1:00 PM ESTPAT Pre Anesthesia [address] [place] [address] 2, Pacc [place] [address] [place] [address] pre-admission iyssyfd2407/03/2025 10:00 AM ESTOffice Visit Financial Clearance Phone Screening [facility] Richard Urena [phone]/16/2026 7:30 AM ESTHospital Encounter Admitting [address] [place] [address] Shree Banks MD [address] [place] [address] Lumbar pseudoarthrosis [S32.009K]07/14/2025 7:30 AM ESTAnesthesia Event Admitting [address] [place] [address] Emely Fox, Research Coordinator 07/14/2025 7:30 AM EST - 07/14/2025 4:30 PM ESTSurgery Admitting [address] [place] [address] Shree Banks MD [address] [place] [address] ALIF DECOMPRESSION LAMINECTOMY INTERBODY FUSION LUMBAR LEVEL 1:00 PM ESTOffice Visit Neurosurgery [address] [place] [address] Lea Ortega PA-C [address] [facility] [place] [address] post op follow upNamePriorityAssociated DiagnosesDate/TimeALIF DECOMPRESSION LAMINECTOMY [...] ProblemNoAster Spears Cdocumented as of this encounter Visit Diagnoses Not on filedocumented in this encounter Additional Health Concerns Active ProblemsNoted DateDiagnosed DateAutogenerated Xpstize2505/15/2025documented as of this encounter Care Teams Team MemberRelationshipSpecialtyStart DateEnd Date Socrates Valdovinos DO [address] [place] [address] PCP - General02/04/10 Wilton Feliz MD [address] [facility] [address] [place] [address] Neurology08/23/24documented as of this encounter
--- OUTSIDE RECORDS SUMMARY | 2025-05-31 10:55 | XMS_ITS | Clinical Summary ---
Author Organization [facility] Address [address] [place] [address] Care Team Providers Care Conventions Reservationist Name Role Phone Socrates Valdovinos DO Primary Care Provider [phone] Wilton Feliz MD Unavailable [phone] Allergies Active AllergyReactionsCriticalityNoted BzxzHaevikufAzhhuXufe26/09/2017 XafwjfdsmwbRiotvhradbtRwwl06/10/2014 Medications MedicationSigDispense QuantityRefillsLast FilledStart DateEnd DateStatus baclofen (LIORESAL) 20 mg tablet Indications:Stroke (HCC),HeadacheTake 20 mg by mouth daily at bedtime. 05/30/2014ctive furosemide (LASIX) 40 mg tablet Indications:Stroke (HCC),HeadacheTake 40 mg by mouth once daily.05/29/2014ctive doxazosin (CARDURA) 4 mg tablet Indications:Stroke (HCC),HeadacheTake 4 mg by mouth once daily. 05/01/2014ctive metoprolol succinate XL, long acting, (TOPROL XL) 50 mg 24 hr tablet Indications:Stroke (HCC),HeadacheTake 50 mg by mouth once daily.06/06/2014ctive cyanocobalamin (VITAMIN B-12) 1,000 mcg tab Indications:Stroke (HCC),HeadacheTake 1,000 mcg by mouth once daily.Active fluticasone (FLONASE) 50 mcg/actuation nasal spray Indications:Stroke (HCC),HeadacheUse 2 Sprays in each nostril twice daily. Active DULoxetine (CYMBALTA) 30 mg capsule Take 1 capsule by mouth once daily. Take with 60 mg for 90 mg total dose. 30 capsule ctive Additional Information Patient taking differently:30 mg ORAL3 [...] 250 mg/mL subcutaneously. every 28 days for migrainesActive CHROMIUM PICOLINATE ORAL Take 800 mcg by mouth once daily.Active docusate sodium (COLACE) 100 mg capsule Take 1 capsule by mouth twice daily.08/20/2021ctive telmisartan (MICARDIS) 80 mg tablet Take 80 mg by mouth once daily. 12/11/2021ctive clopidogrel (PLAVIX) 75 mg tablet Take 1 tablet by mouth once daily. Please hold this medication until post op day ctive lactobacillus combination no.4 3 billion cell cap Take 1 capsule by mouth once daily. 30 capsule ctive Pregabalin (LYRICA) 200 mg capsule Indications:Lumbar radiculopathyTake 1 capsule by mouth three times daily for 90 days. 90 capsule ctive methocarbamol (ROBAXIN) 500 mg tablet Take 1,000 mg by mouth.09/24/2021ctive HYDROcodone-Acetaminophen (NORCO) 7.5-325 mg per tablet Take 1 tablet by mouth every 8 hours as needed for pain.0Active QUEtiapine (SEROQUEL) 25 mg tablet Take 1 tablet by mouth daily at bedtime. 30 tablet 5Active mupirocin (BACTROBAN) 2 % ointment Apply 1/2 ointment with a cotton swab in each nostril 2x daily for five days preop Patient should start on July 09, 2025. 22 g 601/6Active methylPREDNISolone (MEDROL, JOAQUÍN,) 4 mg Dose-Pack As instructed per package 21 tablet /Discontinued methylPREDNISolone (MEDROL, JOAQUÍN,) 4 mg Dose-Pack As instructed per package 21 tablet /Expired Active Problems ProblemNoted DateDiagnosed DateCervical disc disorder with radiculopathy 09/15/2024Lumbar tgcggtqwoufke20/15/7904Lyhcmu13/09/2022besity, Class II, BMI 35-39.9001/01/2022Lumbar fvdmzxgubvslhhk03/05/2022leep apnea12/17/2021 Assessment & Plan (12/17/2021 11:31 AM EDT): Assessment: compliant with CPAP Weakness of left lower eeiodepqa89/01/2022ack pain11/21/2021Low back pain 11/21/20219487Uzxqojsu26/20/2022ost-operative jbhdrpwec03/17/2022 Assessment & Plan (12/17/2021 11:29 AM EDT): Assessment: see HPI Ulrluos2509/12/2021 Assessment & Plan (12/17/2021 11:30 AM EDT): Assessment: diet and exercise encouraged, BMI 37 Mixed sxhcrbmeeubyuc94/20/2022 Assessment & Plan (12/17/2021 11:28 AM EDT): Assessment: managed with med, stable BPH (benign prostatic hyperplasia)08/18/2021GERD (gastroesophageal reflux disease)08/18/2021 Assessment & Plan (12/17/2021 11:28 AM EDT): Assessment: managed with med, stable CKD (chronic kidney disease) stage 3, GFR 30-59 ml/min08/18/2021 Assessment & Plan (12/17/2021 11:29 AM EDT): Assessment: follows up with PCP, stable Creatinine Date Value Ref Range Status 11/27/2021 1.24 (H) 0.73 - 1.22 mg/dL Final 11/22/2021 1.20 0.73 - 1.22 mg/dL Final 11/22/2021 1.29 (H) 0.73 - 1.22 mg/dL Final 09/22/2021 1.11 0.73 - 1.22 mg/dL Final Status post lumbar spinal osywom9608/17/2021pondylolisthesis, lumbar region 2Primary hplbivrfypdv12/09/2022 Overview (08/07/2021): Medication management BP at OV 131/82 Assessment & Plan (12/17/2021 11:28 AM EDT): Assessment: managed with med, stable 12/17/2021 124/78 11/21/2021 129/82 10/09/2021 119/72 Cerebrovascular accident (CVA) due to kwqhinyuba57/09/2022 Assessment & Plan (12/17/2021 11:33 AM EDT): Assessment: hx 2014, daily Plavix Follows up with neurology, no residual symptoms Stable Assessment & Plan (08/07/2021 2:05 PM EST): Assessment: CVA 2014 Plavix use Adjustment disorder with anxious mood07/18/2014Intractable chronic migraine without aura07/18/2014 Assessment & Plan (12/17/2021 11:28 AM EDT): Assessment: managed with med, stable Assessment & Plan (08/07/2021 12:55 PM EST): Assessment: Has CVA in 2013 has had residual migraines [facility]2015Opioid jkxlqgonmy30/20/2015 Assessment & Plan (08/07/2021 2:00 PM EST): Assessment: [place] TID Resolved Problems ProblemNoted DateDiagnosed DateResolved DateSecondary jmobreckbkbs99/09/2022 08/07/20213042Axihhuxapara81seudoarthrosis of lumbar spine 2Opiate vpuciffgag09Headache(784.0) 2Chronic daily pqvgwygk132Chronic back pain Medication overuse uxcovegv38 Encounters DateTypeDepartmentCare BdhyFadmwsbzaqn23/21/2025 8:59 AM EST - 05/19/2025 11:59 PM ESTHospital Encounter Radiology [address] [place] [address] Lumbar pseudoarthrosis [S32.009K] Discharge Disposition: Home05/19/2025 8:59 AM EST - 05/19/2025 11:59 PM EST Hospital Encounter Radiology [address] [place] [address] Discharge Disposition: Home05/15/2025Patient Update Neurosurgery [address] [place] [address] Shree Steele MD 05/08/2025 Patient M[address] [place] [address] Provider, Ccf Loikyax9705/01/2025 Get Medical Advice Neurosurgery [address] [place] [address] Shree Steele MD Requested CT scan04/21/2025[facility] [place] [address] [place] [address] Shree Steele MD Lumbar pseudoarthrosis (Primary Dx)03/15/2025Telephone Neurology [address] [place] [address] Shree Steele MD Irewrtklmix68/10/2025 2:00 PM EDTDistanNewYork[facility] [address] [place] [address] Shree Steele MD Lumbar pseudoarthrosis (Primary Dx)from Last 3 Months Immunizations ImmunizationAdministration DatesNext DueCOVID-19 original vaccine, age 12+ yr, monovalent ([employer] - KING TOP)01/02/2022,01/02/2022(Deferred: Patient Refused - pt having increasing pain; does not want at this time),01/02/2022( Deferred: - not given on last shift per report)influenza (HD-IIV3) vaccine, age 65+ yr, high dose, trivalent, PF (FLUZONE HIGH-DOSE)02/28/2020influenza (IIV3) vaccine, age 6 mo - 64 yr, trivalent (AFLURIA, FLULAVAL, FLUVIRIN, FLUZONE) 04/21/2014influenza (IIV3) vaccine, trivalent (AFLURIA, FLULAVAL, FLUVIRIN, FLUZONE)04/26/2018,02/28/2016,04/21/2014,03/28/2011influenza (IIV4) vaccine, age 6 mo - 64 yr, quadrivalent, PF (AFLURIA, FLUARIX, FLULAVAL, FLUZONE)03/25/2019, 04/21/2017,01/27/2017influenza (RIV4) vaccine, recombinant, quadrivalent, PF (FLUBLOK)04/12/2020influenza (ccIIV4) vaccine, age 6+ mo, quadrivalent, PF (FLUCELVAX)1pneumococcal polysaccharide (PPV23) vaccine, 23 valent (PNEUMOVAX 23)12/08/2014tetanus diphtheria pertussis (Tdap) vaccine, age 7+ yr (ADACEL, BOOSTRIX)03/28/2011tetanus toxoid (TT) phpgscd9003/28/2011zoster (RZV) vaccine, recombinant (SHINGRIX)06/12/2020,04/12/2020 Family History Medical HistoryRelationCommentsDiabetesMotherRelationStatusCommentsMother Social History Tobacco UseTypesPacks/DayYears UsedDateSmoking Tobacco: NeverSmokeless Tobacco: Never Tobacco Cessation:Counseling Given: Not Answered Alcohol UseStandard Drinks/WeekCommentsYes0 (1 standard drink = 0.6 oz pure alcohol)2 glasses of wine per day.Overall Financial Resource Strain (CARDIA) AnswerDate RecordedHow hard is it for you to pay for the very basics like food, housing, medical care, and heating?Not hard at all11/22/2021HQ-2AnswerDate RecordedPHQ-2 xakta824Hunger Vital SignAnswerDate RecordedWithin the past 12 months, [...] 07/20/2024State Score (1-10), lower number is lower walo53207/20/2024Data from: https://www.neighborhoodatlas.[facility]/. Last address used for sgpfjtwizsm[address]07/20/2024Sex and Gender InformationValueDate Recorded Sex Assigned at TdcgyYqmv62/02/2021 2:16 PM EDTLegal TyoCqvv31/02/2012 9:02 AM ESTGender VpfcmgfoPfiu03/02/2021 2:16 PM EDTSexual VubvppwwirwFlyiygup84/02/2021 2:16 PM EDT Last Filed Vital Signs Vital SignReadingTime TakenCommentsBlood Lishkvug064/8602/13/2025 8:36 AM EDT Syibt382602/13/2025 8:36 AM KBTMhzszbysulf02.7 ??C (98.1 ??F)02/13/2025 8:36 AM EDTRespiratory Liws158809/15/2024 10:25 AM EDTOxygen Xwrjifqsvr86%02/13/2025 8:36 AM EDTInhaled Oxygen Concentration--Nompvf258.9 kg (273 lb 2.4 oz)02/13/2025 8:36 AM QSEExclaj276.5 cm (5' 9.49 )02/13/2025 8:36 AM EDTBody Mass Index39.77 02/13/2025 8:36 AM EDT Plan of Treatment DateTypeDepartmentCare Team (Latest Contact Info)Qcmmfeidsjs00/19/2025 1:00 PM ESTPAT Pre Anesthesia [address] [place] [address] 2, Pacc [place] [address] [place] [address] pre-admission fgtmjcx2607/03/2025 10:00 AM ESTOffice [place] [address] [facility] 302-833-722372/16/2026 7:30 AM ESTHospital Encounter Admitting [address] [place] [address] Shree Steele MD [address] [place] [address] Lumbar pseudoarthrosis [S32.009K]07/14/2025 7:30 AM ESTAnesthesia Event Admitting [address] [place] [address] Emely Fox, Research Coordinator 07/14/2025 7:30 AM EST - 07/14/2025 4:30 PM ESTSurgery Admitting [address] [place] [address] Shree Steele MD [address] [facility] [address] ALIF DECOMPRESSION LAMINECTOMY INTERBODY FUSION LUMBAR LEVEL 1:00 PM ESTOffice Visit Neurosurgery [address] [place] [address] Lea Ortega PA-C [address] [place] [address] post op follow upNamePriorityAssociated DiagnosesDate/TimeALIF DECOMPRESSION LAMINECTOMY [...] LEVEL 1 Lumbar pseudoarthrosis 07/14/2025 7:30 AM ESTHealth MaintenanceDue DateLast DoneCommentsAnnual PCP Team Chronic Disease Visit1977Anxiety Dlvepeipd14/06/1977Depression Screening 1977HIV Qozebjrvb16/06/1977Hepatitis C Zbuvrrdqf48/06/1977CT Colonography 06/03/20045355Krvqagaaqcv85/06/2004Fecal Occult Blood2004Sigmoidoscopy 2004Advance Directive Ktjzgpzmpl55/01/2025Medicare Advantage Annual Wellness Visit06/29/2024Diabetes Pnjmrposf20/11/448163/04/2022, 01/05/2022, 01/04/2022, Additional history existsCovid-19 Vaccine ( season) , 06/16/2023, 04/11/2022, Additional history existsSerum Chtpwgkcsw99/05/202608/10/2024, 01/06/2022, 01/05/2022, Additional history existsCologuard (FIT-DNA)olorectal Cancer Screening 03/11/2028Lipid Djijongtt80Prostate Cancer Screening Syzebtqbct54/02/203009/07/2024, 08/31/2024DTaP,Tdap,Td Vaccine (3 - Td or Tdap) , 03/28/2011Shingrix PunwfbcAjezihtzj41/15/2020, 04/12/2020 Pneumococcal Vaccine: 50+Hofrnzpup54/03/2023, 12/08/2014RSV VaccineCompleted 07/21/2024Influenza ClrcizpNwgztkfjw08/03/2025, 04/11/2024, 10/07/2023, Additional history exists Goals GoalPatient Goal TypeAssociated ProblemsRecent ProgressPatient-Stated?Author Autogenerated Goal Care PlanAutogenerated ProblemNoAster Spears Medical Devices ImplantedTypeAreaManufacturerDevice IdentifierShelf Expiration DateModel / Serial / LotGraft Bn Infs Rhbmp-2 5.6ml - [id number] Implanted:Q[facility]/29/[id number] / / [id number] Bn Canc 15ml Allgrft - [id number] Implanted:Qty: 1 on 12/07/2014 at [facility]03/09/2017400145 / [id number] / Graft Bn Canc 15ml Allgrft - [id number] Implanted:Qty: 1 on 12/07/2014 at [facility]08/21/2017400145 / [id number] / Graft Bn Canc 15ml Allgrft - [id number] Implanted:Qty: 1 on 12/07/2014 at [facility]08/08/2017400145 / [id number] / Graft Infuse 14mm Small Bovine Collagen Rhbmp-2 23mm Bone Absorbable Sponge - [id number] Implanted:Qty: 1 on 08/16/2021 by Shree Steele MD at [facility] N/A: Spine - VertebraeMEDTRONIC SOFAMOR [id number] / / [id number] Bone Sub 5cc Dbm Inert Reverse Phase Carrier Gel Synthetic Osteosparx - [id number] Implanted:Qty: 1 on 12/31/2021 by Shree Steele MD at [facility] N/A: Spine - LumbarSEASPINE SALES LLC10/24/[id number] / [id number] / [id number] Infuse 14mm Small Bovine Collagen Rhbmp-2 23mm Bone Absorbable Sponge - [id number] Implanted:Qty: 1 on 12/31/2021 by Shree Steele MD at [facility] N/A: Spine - LumbarMEDTRONIC SOFAMOR DANEK03/28/[id number] / / [id number] Mastergraft Bone Graft Matrix Block Extension Void Filler 5ml - [id number] Implanted:Qty: 1 on 12/31/2021 by Shree Steele MD at [facility] N/A: Spine - LumbarMEDTRONIC SOFAMOR DANEK04/28/[id number] / / [id number]-It-S-Opmb Implant - [id number] Implanted:Qty: 1 on 12/07/2014 at [id number] / / Description:C1713 5.0X20MM GKPLLEpp-Eb-Y-Kind Implant - [id number] Implanted:Qty: 1 on 12/07/2014 at [id number] / / Description:14MMX 35Y85MJ X 4 DEG QOKHAORPym-Ff-O-Kind Implant - [id number] Implanted:Qty: 1 on 12/07/2014 at [id number] / / [id number]:C1713 PLATE JAZMIN UMRPQfb-Ud-Y-Kind Implant - [id number] Implanted:Qty: 1 on 12/07/2014 at [id number] / / [id number]:C1713 SCREW BN 1.5MM 47VRZiw-Zy-W-Kind Implant - [id number] Implanted:Qty: 1 on 12/07/2014 at [id number] / / [id number]:C1769 WIRE FIX KRSH SHRP CNN SPNLBlocker Nicolle 3 Ti - [id number] Implanted:Qty: 1 on 12/07/2014 at [facility] [id number] / / Imj-Ry-M-Kind Implant - [id number] Implanted:Qty: 2 on 12/07/2014 at [id number] / / Description:C1713 SCREW BN SPNL 5MM 25MM Prolift Expandable Spacer Implanted:Qty: 1 on 08/16/2021 by Shree Steele MD at [facility] ImplantN/A: Spine - FpcbwwgpaVGMKLAJ54/13/[id number] / / [id number] Nicolle 3 Titanium Set Joshua Spine - [id number] Implanted:Qty: 5 on 08/16/2021 by Shree Steele MD at [facility] ImplantN/A: Spine - VertebraeSTRYKER [id number] / / Vargas Polyaxial Screw 55mm X 8.5mm Implanted:Qty: 1 on 12/31/2021 by Shree Steele MD at [facility] ImplantN/A: Spine - [id number] / / Vargas Polyaxial Screw 100mm X 8.5mm Implanted:Qty: 2 on 12/31/2021 by Shree Steele MD at [facility] ImplantN/A: Spine - [id number] / / Screw Nicolle 3 Titanium Set Joshua Spine - [id number] Implanted:Qty: 7 on 12/31/2021 by Shree Steele MD at [facility] ImplantN/A: Spine - LumbarSTRYKER [id number] / / Lamonte Nicolle 3 6mm Titanium 50mm Spinal Radiolucent - [id number] Implanted:Qty: 1 on 08/16/2021 [facility] N/A: Spine - VertebraeSTRYKER [id number] / / Lamonte Nicolle 3 6mm Titanium 70mm Spinal Radiolucent - [id number] Implanted:Qty: 1 on 08/16/2021 by Shree Steele MD at [facility] N/A: Spine - VertebraeSTRYKER [id number] / / Lamonte Nicolle 3 6mm Titanium 100mm Spinal - [id number] Implanted:Qty: 1 on 12/31/2021 [facility] N/A: Spine - LumbarSTRYKER [id number] / / Lamonte Nicolle 3 6mm Titanium 80mm Spinal Radiolucent - [id number] Implanted:Qty: 1 on 12/31/2021 by Shree Steele MD at [facility] N/A: Spine - LumbarSTRYKER [id number] / / Screw Nicolle 3 Vargas 6.5mm 50mm Bone Polyaxial Nonsterile Spine - [id number] Implanted:Qty: 2 on 08/16/2021 by Shree Steele MD at [facility] N/A: Spine - VertebraeSTRYKER [id number] / / Screw 9.5mm 50mm Bone Revision Polyaxial Iliosacral - [id number] Implanted:Qty: 1 on 12/31/2021 by Shree Steele MD at [facility] N/A: Spine - LumbarSTRYKER [id number] / / Procedures Procedure NamePriorityDate/TimeAssociated DiagnosisCommentsCT ABDOMEN WO IVCON Ixfhrtr2405/19/2025 9:09 AM EST Lumbar pseudoarthrosis BASIC METABOLIC FKPZOAkucdjk03/11/2022 3:07 AM EDT from Last 3 Months or Most Recently Relevant to Health Maintenance Results * CT ABDOMEN WO IVCON (05/19/2025 [...] any questions regarding this interpretation, please call [phone]. If you are unable to reach us at the number above, please feel free to contact [facility] at [phone]. Narrative 05/19/2025 3:23 PM EST * * [...] No additional findings. COMMUNICATION: ??Communicated with SHREE SETELE on 05/19/2025 3:19 PM ?? via verbal communication. Procedure Note Provider, [facility] - 05/19/2025 * * *Final Report* * * DATE OF EXAM: May 19 2025 9:09AM [facility] 0534 - CT ABDOMEN WO IVCON / [...] any questions regarding this interpretation, please call [phone]. If you are unable to reach us at the number above, please feel free to contact [facility] at [phone]. Authorizing ProviderResult TypeResult StatusSaint Joseph Mount Sterlingles Steele MDCT-PAMAFinal Result * (ABNORMAL) BASIC METABOLIC PNL (01/06/2022 3:07 AM EDT)ComponentValueRef Range Test MethodAnalysis TimePerformed AtPathologist TepfkobriUwmqrji791(H)74 - 99 mg/dL01/06/2022 6:35 AM EDTLUTHERAN LABORATORYComment: The [place] Diabetes Association (ADA) provides guidance for cutoff values for fasting glucose andrandom glucose. The ADA defines fasting as no [...] Standards of Medical Care in Diabetes 2016, [place] Diabetes Association. Diabetes Care. 2016.39(Suppl 1). BUN99 - 24 mg/dL01/06/2022 6:35 AM EDTLUTHERAN LABORATORYCreatinine1.190.73 - 1.22 mg/dL01/06/2022 6:35 AM EDTLUTHERAN RHVBPXPDYVSumfaf790738 - 144 mmol/L 01/06/2022 6:35 AM EDTLUTHERAN LABORATORYPotassium3.93.7 - 5.1 mmol/L01/06/2022 6:35 AM EDTLUTHERAN LGFHEYNOXRDezpiqwp37197 - 105 mmol/L01/06/2022 6:35 AM EDT [facility] UKLLRWYQIOSO84102 - 30 mmol/L01/06/2022 6:35 AM EDTLUTHERAN LABORATORY Anion Gap99 - 18 mmol/L01/06/2022 6:35 AM EDTLUTHERAN LABORATORYCalcium, Total 8.88.5 - 10.2 mg/dL01/06/2022 6:35 AM EDTLUTHERAN LABORATORYEstimated Glomerular Filtration Rate69>=60 mL/min/1.73m 01/06/2022 6:35 AM EDTLUTHERAN LABORATORYComment:Estimated Glomerular Filtration Rate (eGFR) is calculated using the 2020 CKD-EPI creatinine equation. This equation utilizes serum creatinine, sex, and age as parameters. The creatinine assay has traceable calibration to isotope dilution-mass spectrometry. Refer to KDIGO guidelines for clinical interpretation. In patients with unstable renal function, e.g. those with acute kidney injury, the eGFRmay not accurately reflect actual GFR.Specimen (Source)Anatomical Location / LateralityCollection Method / VolumeCollection TimeReceived TimeBloodBLOOD SPECIMEN / Unknown Venipuncture / Pvxhmxn7301/06/2022 3:07 AM EDT01/06/2022 5:46 AM EDT Narrative Authorizing ProviderResult TypeResult StatusVeronica Hasty OPTICAL BRIGHTENER MAKER HELPER.CNPLABORATORY Final ResultPerforming OrganizationAddressCity/State/ZIP CodePhone Number [facility] [address] ATTN Kailee Tijerina [place] [phone], from Last 3 Months or Most Recently Relevant to Health Maintenance Additional Health Concerns Active ProblemsNoted DateDiagnosed DateAutogenerated Wvtyigw7005/15/2025 Insurance Care Teams Team MemberRelationshipSpecialtyStart DateEnd Date Socrates Valdovinos DO [address] [place] [address] PCP - General02/04/10 Wilton Feliz MD [address] [facility] [address] [address] [place] [address] Neurology08/23/24
--- OUTSIDE RECORDS SUMMARY | 2025-05-31 10:55 | XMS_ITS | Clinical Summary ---
Author Organization [facility] Address [address] [place] [address] Phone Care Team Providers Care Vat House Laborer Name Role Phone Socrates Valdovinos DO Primary Care Provider [phone] Allergies Active AllergyReactionsCriticalityNoted LnrmQhsikhdpYqwnaQmfflCcexvu72/09/2023 PenicillinsAnaphylaxis,EjgabyenFrga81/09/2023 Medications MedicationSigDispense QuantityRefillsLast FilledStart DateEnd DateStatus fremanezumab (Ajovy) 225 mg/1.5 mL prefilled syringe 1.5 mL (225 mg) every 28 (twenty-eight) days.Active JOHANNE BIOTIN ORAL Take 10,000 mcg by mouth once daily.Active onabotulinumtoxinA (BOTOX INJ) Every 90 daysActive clopidogrel (Plavix) 75 mg tablet Take 1 tablet (75 mg) by mouth once daily.Active DULoxetine (Cymbalta) [address] capsule Take 2 capsules (60 mg) by mouth 2 times a day. Do not crush or chew.Active dicyclomine (Bentyl) 20 mg tablet Take 1 tablet (20 mg) by mouth 4 times a day as needed.Active doxazosin (Cardura) 4 mg tablet Take 1 tablet (4 mg) by mouth once daily.Active ferrous sulfate 325 (65 Fe) MG EC tablet Take 1 tablet by mouth once daily. Do not crush, chew, or split.Active finasteride (Proscar) 5 mg tablet Take 1 tablet (5 mg) by mouth once daily. Do not crush, chew, or split.Active omega-3 fatty acids (FISH OIL CONCENTRATE ORAL) Take 1 tablet by mouth once daily.Active fluticasone (Flonase) 50 mcg/actuation nasal spray Administer 2 sprays into each nostril once daily. Shake gently. Before first use, prime pump. Afteruse, clean tip and replace cap.Active furosemide (Lasix) 40 mg tablet Take 1 tablet (40 mg) by mouth once daily.Active potassium chloride CR 20 mEq ER tablet Take 1 tablet (20 mEq) by mouth once daily. Do not crush or chew.Active magnesium oxide (Mag-Ox) 400 mg tablet Take 1 tablet (400 mg) by mouth once daily.Active metoprolol succinate XL (Toprol-XL) 50 mg 24 hr tablet Take 1 tablet (50 mg) by mouth once daily. Do not crush or chew.Active multivitamin capsule Take 1 capsule by mouth once daily.Active nortriptyline (Pamelor) 50 mg capsule Take 1 capsule (50 mg) by mouth once daily.Active omeprazole (PriLOSEC) [address] capsule Take 1 capsule (40 mg) by mouth once daily. Do not crush or chew.Active pregabalin (Lyrica) 200 mg capsule Take 1 capsule (200 mg) by mouth 3 times a day.Active rizatriptan (Maxalt) 10 mg tablet Take 1 tablet (10 mg) by mouth 1 time. At the onset of headache. May repeat ievery 2 hours as needed. Do not exceed 30 mg in 24 hours.Active rOPINIRole (Requip) 0.5 mg tablet Take 1 tablet (0.5 mg) by mouth once daily.Active sildenafil (Viagra) 50 mg tablet Take 1 tablet (50 mg) by mouth if needed for erectile dysfunction. 1 hour before neededActive testosterone cypionate (Depo-Testosterone) 200 mg/mL injection Inject 1.5 mL (300 mg) into the muscle every 14 (fourteen) days.Active valACYclovir (Valtrex) 500 mg tablet Take 1 tablet (500 mg) by mouth if needed.Active albuterol (Ventolin HFA) 90 mcg/actuation inhaler Use as directedActive b complex 0.4 mg tablet Take 1 tablet by mouth once daily.Active cholecalciferol, vitamin D3, (D3-50 CHOLECALCIFEROL ORAL) Take 1 tablet by mouth once daily.Active pancrelipase, Ikf-Hnwr-Khym, (Creon) 36,000-114,000- 180,000 unit capsule,delayed release(DR/EC) capsule Take 1 capsule by mouth once daily.Active nitroglycerin (Nitrostat) 0.4 mg SL tablet Indications:Angina pectorisPlace 1 tablet (0.4 mg) under the tongue every 5 minutes if needed for chest pain. Take as directed 25 tablet 112412/5Active HYDROcodone-acetaminophen ([place]) 7.5-325 mg tablet Take 1 tablet by mouth 3 times a day.Active methocarbamol (Robaxin) 500 mg tablet Take 2 tablets (1,000 mg) by mouth 3 times a day.4Active telmisartan (MIcarDIS) 80 mg tablet Take 1 tablet (80 mg) by mouth once daily.Active doxepin (SINEquan) 10 mg capsule Take 1 capsule (10 mg) by mouth once daily at bedtime.Active semaglutide 2 mg/dose (8 mg/3 mL) pen injector Inject 2 mg under the skin 1 (one) time per week.Active Saccharomyces boulardii 10 billion cell capsule Take 250 mg by mouth once daily.Active isosorbide mononitrate ER (Imdur) 30 mg 24 hr tablet Indications:Angina pectoris,Essential hypertensionTake 1 tablet (30 mg) by mouth once daily. 90 tablet 304/444969/6Active atorvastatin (Lipitor) 80 mg tablet Indications:Mixed hyperlipidemiaTAKE 1 TABLET DAILY AT BEDTIME 90 tablet 5Active Active Problems ProblemNoted DateDiagnosed DateBMI 39.0-39.9,adult07/22/2024Essential lhqquzwcqwly42/09/3254Jeizeiyybjvtvc01/09/2023Morbid luodujo9003/07/2023Shortness of breath on mtolcvlk26/09/0639Rayzzl37/09/2023ngina wcegyiay88/09/2023Never smoked any kpduuachf03/09/2023 Encounters DateTypeDepartmentCare WgvwEtmfmampxus79/21/2025Scanned Document [facility] [address] [place] [address] Scanning, Generic Provider from Last 3 Months Immunizations ImmunizationAdministration DatesNext DueFlu vaccine (IIV4), preservative free *Check age/dose*04/11/2022,03/25/2019,04/21/2017,01/27/2017Flu vaccine, quadrivalent, no egg protein, age 6 month or greater (FLUCELVAX)04/25/2021Flu vaccine, quadrivalent, recombinant, preservative free, adult (FLUBLOK)04/12/2020 Flu vaccine, trivalent, preservative free, HIGH-DOSE, age 65y+ (Fluzone) 02/28/2020Flu vaccine, trivalent, preservative free, no egg protein, age 18y+ (Flublok)04/11/2024Influenza, Frtlrdpcljp41/01/2018,03/04/2016,12/07/2014, 05/01/2014,04/07/2013,09/12/2009Influenza, seasonal, kisnmmcwhs19/05/2022, 04/26/2018,02/28/2016,04/21/2014,06/29/2011,03/28/2011Pfizer COVID-19 vaccine, bivalent, age 12 years and older (30 mcg/0.3 mL)2Pfizer Finch Cap BQUG-SuQ-984/07/2022Pneumococcal polysaccharide vaccine, 23-valent, age 2 years and older (PNEUMOVAX 23)12/08/2014Tetanus toxoid, vqshhobv41/30/2011Zoster vaccine, recombinant, adult (SHINGRIX)06/12/2020,04/12/2020 Family History Medical HistoryRelationNameCommentsNo Known ProblemsBrotherHypertensionFather DiabetesMotherNo Known ProblemsSisterRelationNameStatusCommentsBrotherFather MotherSister Social History Tobacco UseTypesPacks/DayYears UsedDateSmoking Tobacco: NeverSmokeless Tobacco: Never Tobacco Cessation:Counseling Given: Not Answered Alcohol UseStandard Drinks/WyubCydvtjzqPem97 (1 standard drink = 0.6 oz pure alcohol)dailySex and Gender InformationValueDate RecordedSex Assigned at Not on fileLegal IvjVbhb17/25/2022 1:53 PM ESTGender IdentityNot on fileSexual OrientationNot on file Last Filed Vital Signs Vital SignReadingTime TakenCommentsBlood Fracgosc684/6807 4:03 PM EDT Kuoeb69745 4:03 PM EDTTemperature--Respiratory Rate--Oxygen Saturation-- Inhaled Oxygen Concentration--Oomtuq703 kg (274 lb)01/26/2025 4:03 PM EDTHeight 175.3 cm (5' 9 )01/26/2025 4:03 PM EDTBody Mass Index40.4607 4:03 PM EDT Plan of Treatment DateTypeDepartmentCare Team (Latest Contact Info)Lgosaxcrzkj13/26/2026 10:30 AM ESTOffice Visit [facility] [address] [phone] Lisa Donnelly MD [address] [facility] [address] [place] [address] Health MaintenanceDue DateLast DoneCommentsCT Jgydkgtegpqm1959Colonoscopy 1959Colorectal Cancer Ezhvklior1959FIT-DNA (Cologuard)1959FIT 1959Lipid Panel1959Medicare Annual Wellness Visit (AWV)1959 Cnvxsopywkyrt1959MMR Vaccines (1 of 1 - Standard series)1960Diabetes Ccyxtwjzc78/06/1977Hepatitis C Mtkornwmj73/06/1977CKD: Urine Protein Screening 1978PSA Prostate Cancer Rthfrxhub56/06/2009Influenza Vaccine (#1) 51, 10/07/2023, 08/21/2023, Additional history existsCOVID-19 Vaccine ( season)/, 04/11/2022, 01/02/2022, Additional history existsDTaP/Tdap/Td Vaccines (3 - Td or Tdap)10/23/2033 10/24/2023, 03/28/2011Zoster OeqdaoniUpctxyupn55/15/2020, 04/12/2020Pneumococcal QuysgtmGuvjgeuky56/03/2023, 12/08/2014RSV High Risk: (Elderly (60+) or Population)Xcpadnfyk42/23/2025HIB VaccinesAged OutNo longer eligible based on patient's age to complete this topicHPV VaccinesAged OutNo longer eligible based on patient's age to complete this topicHepatitis A VaccinesAged OutNo longer eligible based on patient's age to complete this topicHepatitis B VaccinesAged OutNo longer eligible based on patient's age to complete this topicIPV Vaccines Aged OutNo longer eligible based on patient's age to complete this topic Meningococcal VaccineAged OutNo longer eligible based on patient's age to complete this topicRotavirus VaccinesAged OutNo longer eligible based on patient's age to complete this topic Insurance Care Teams Team MemberRelationshipSpecialtyStart DateEnd Date Socrates Valdovinos DO PCP - Hysllpn85/11/20
--- OUTSIDE RECORDS SUMMARY | 2025-05-31 10:55 | XMS_ITS | Clinical Summary ---
Author Organization [facility] Address [address] [place] [address] Care Team Providers Care Client Technologies Specialist Name Role Phone Socrates Valdovinos MD Primary Care Provider [phone] Kristi Blake Unavailable Allergies Active AllergyReactionsCriticalityNoted CwnwRigvlclvKraxmmvayUdvwwauk68/20/2024 ZorneMbzjBnyx56/09/2017 Other Reaction(s): blisters, Unknown This patient is not Allergic to Albuterol. PenicillinsAnaphylaxis,QeiekqflMvli96/10/2014 Other Reaction(s): Anaphylaxis, throat swelled, Throat swelling, Unknown Medications MedicationSigDispense QuantityRefillsLast FilledStart DateEnd DateStatus HYDROcodone-acetaminophen ([place]) 7.5-325 MG tablet Take 1 tablet by mouth in the morning and 1 tablet in the evening and 1 tablet before bedtime.Active promethazine (Phenergan) 25 MG tablet Take 25 mg by mouth every 6 (six) hours if needed for nausea or vomitingActive potassium chloride CR (Klor-Con M20) 20 MEQ ER tablet Take 20 mEq by mouth Daily Do not crush or chew.Active baclofen (Lioresal) 20 MG tablet Take 20 mg by mouth at bedtimeActive furosemide (Lasix) 40 MG tablet Take 40 mg by mouth DailyActive clopidogrel (Plavix) 75 MG tablet Take 75 mg by mouth DailyActive fluticasone (Flonase) 50 MCG/ACT nasal spray Administer 2 sprays into each nostril Daily Shake gently. Before first use, prime pump. After use, clean tip and replace cap.Active doxazosin (Cardura) 4 MG tablet Take 4 mg by mouth at bedtimeActive atorvastatin (Lipitor) 80 MG tablet Take 80 mg by mouth DailyActive telmisartan (MIcarDIS) 80 MG tablet Take 80 mg by mouth DailyActive metoprolol succinate XL (Toprol-XL) 50 MG 24 hr tablet Take 50 mg by mouth Daily Do not crush or chew.Active finasteride (Proscar) 5 MG tablet Take 5 mg by mouth Daily Do not crush, chew, or split.Active ferrous sulfate 325 (65 Fe) MG tablet Take 325 mg by mouth in the morning. Take with meals.Active valACYclovir (Valtrex) 500 MG tablet Take 500 mg by mouth if neededActive doxepin (SINEquan) 10 MG capsule Take 10 mg by mouth at bedtimeActive aspirin 81 MG EC tablet Take 81 mg by mouth DailyActive omeprazole (PriLOSEC) [address] capsule Take 40 mg by mouth in the morning. Take before meals. Do not crush or chew. Active sildenafil (Viagra) 50 MG tablet Take 50 mg by mouth Daily as needed for erectile dysfunctionActive dicyclomine (Bentyl) 20 MG tablet Take 20 mg by mouth as needed in the morning and 20 mg as needed at noon and 20 mg as needed in theevening and 20 mg as needed before bedtime.Active isosorbide mononitrate ER (Imdur) 30 MG 24 hr tablet Take 30 mg by mouth Daily Do not crush or chew.Active nitroglycerin (Nitrostat) 0.[address] 0.4 mg under the tongue every 5 (five) minutes if needed for chest pain Active Semaglutide (OZEMPIC, 2 MG/DOSE, SC) Inject 2 mg under the skin 1 (one) time per weekActive rOPINIRole (Requip) 1 MG tablet Indications:RLS (restless legs syndrome)TAKE 1 TABLET IN THE EVENING 90 tablet ctive methocarbamol (Robaxin) 500 MG tablet Take 500 mg by mouth every 8 (eight) hours if ohnmsd71/20/2024Active Biotin 5000 MCG sublingual tablet Take 1 tablet by mouth Daily4Active ascorbic acid (Vitamin C) 500 MG tablet Take 1 tablet by mouth DailyActive Garcinia Cambogia-Chromium 500-200 MG-MCG tablet Take by mouthActive MAGNESIUM OXIDE 400 PO Take 1 tablet by mouth DailyActive Cyanocobalamin (Vitamin B-12) [address] 1 tablet under the tongue DailyActive DHEA 50 MG capsule Take by mouthActive diclofenac sodium 1 % gel Apply 2 g topically in the morning and 2 g at noon and 2 g in the evening and 2 g before bedtime.Active PSYLLIUM PO Take by mouthActive Calcium Carb-Cholecalciferol (OS-DEISY CALCIUM + D3 PO) Take 1 tablet by mouth DailyActive cholecalciferol (Vitamin D3) 25 MCG (1000 UT) tablet Take 2 tablets by mouth DailyActive DULoxetine (Cymbalta) [address] capsule Indications:Lumbar radiculopathyTAKE 1 CAPSULE IN THE MORNING AND 1 CAPSULE BEFORE BEDTIME 180 capsule 5Active nortriptyline (Pamelor) 50 MG capsule Indications:Chronic migraine without aura without status migrainosus, not intractableTAKE 1 CAPSULE AT BEDTIME 90 capsule 5Active fremanezumab (Ajovy) 225 MG/1.5ML auto-injector Indications:Chronic migraine without aura with status migrainosus, not intractableInject 1 pen (225 mg) under the skin every 30 (thirty) days INJECT 1.5ML (225MG) UNDER THE SKIN EVERY 30 DAYS. 4.5 mL 5Active HYDROcodone-acetaminophen ([place]) 5-325 MG tablet 1 tabletActive pregabalin (Lyrica) 200 MG capsule Indications:Radiculopathy, lumbosacral regionTake 1 capsule (200 mg) by mouth in the morning and 1 capsule (200 mg) in the evening and 1 capsule(200 mg) before bedtime. Due 09/15/24. 270 capsule 5Active predniSONE (Deltasone) 5 MG tablet Indications:Right shoulder pain, unspecified chronicityTake 5 tabs p.o. daily x3 days Take 4 tabs p.o. daily x3 days Take 3 tabs p.o. daily x3 days Take 2tabs p.o. daily x3 days Take 1 tab p.o. daily x3 days 45 tablet 5Active Syringe/Needle, Disp, (B-D 3CC LUER-JAZMIN SYR 43FL3-7/2) 23G X 1-1/2 3 ML misc Indications:Secondary male hypogonadismuse 1 syringe every 14 days 6 each 5Active testosterone cypionate (Depo-Testosterone) 200 MG/ML injection Indications:Secondary male hypogonadismInject 0.75 mL (150 mg) into the shoulder, thigh, or buttocks every 14 (fourteen) days 5 mL /6Active testosterone cypionate (Depo-Testosterone) 200 MG/ML injection Indications:Secondary male hypogonadismInject 2 mL (400 mg) into the shoulder, thigh, or buttocks every 14 (fourteen) days 12 mL Discontinued Active Problems ProblemNoted DateDiagnosed ZzboWfqklpzlgsj55/02/2024arpal tunnel syndrome, bilateral upper limbs10/29/2023Intractable chronic migraine without aura and without status ioiardlyasq60/02/2024hronic migraine without aura without status migrainosus, not mbbifhojglw77/02/2024Median cvexjotkjg93/02/2024Other sequelae of other cerebrovascular empagex67/02/2024Carotid artery /02/2024TIA (transient ischemic attack)4Degenerative disc disease, zltrpn6810/29/2023 Restless leg qjecxhnt87/02/2024ost laminectomy wadrlgss74/02/2024Chronic migraine without aura07/16/2018Intractable migraine, unspecified migraine type 07/16/2018Headache, hbkfwtqa21/18/2019Chronic daily fgpmbrii15/21/2018Stroke 05/19/2018Obstructive sleep apnea05/19/20187505Iotanyww29/15/2018Chronic headache 02/10/2018Foraminal stenosis of cervical sbrbys1902/10/20181369Jfcxepqur26/03/2018 Gmjyehz1107/01/2017Degenerative disc disease, tcvqjueu73/24/2017Neck pain 04/21/20171999Tdlojnys45/24/0796Pitkbrnqtzna53/12/2015Muscle spasm11/07/2014 Insomnia, unspecified type11/06/2014Tension meghnwmp34/09/2015Brachial neuritis or ydsprlsbcfy10/12/2015Carpal tunnel gvgpsaes30/17/2015Common migraine 02/28/2014Syndrome affecting cervical azzxnr9502/28/20145088Hyxeakmvngp02/25/2014 Disturbance of skin /29/2014Radiculopathy, lumbosacral region 10/25/20137166Urimjjfe78/11/2014 Encounters DateTypeDepartmentCare IwykXyhtzpnrhae26/18/2025Refill [facility] [place] [facility] [address] [place] [address] Rosey Dubose MD Secondary male zdeuogchllys66/25/2025Refill [facility] [address] [place] [address] Kristi Blake PA Radiculopathy, lumbosacral fuvbxl6403/28/2025Refill [facility] [place] [address] [place] [address] Rosey Dubose MD Secondary male ctabzlldrevq57/08/2025 10:30 AM EDTOffice Visit [facility] [place] [facility] [address] [place] [address] Abdi Mckeon PA Right shoulder pain, unspecified chronicity (Primary Dx)03/06/2025 9:20 AM EDT [facility] [address] [place] [address] 03/06/2025 9:20 AM EDTOffice Visit [facility] [address] [place] [address] Rosey Dubose MD 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); Sweating disease; Encounter for dietary consultation; Class 2 severe obesity due to excess calories with serious comorbidity and body mass index (BMI) of38.0 to 38.9 in adult ([facility])03/06/2025amboo flowsheet [facility] [address] [place] [address] Rosey Dubose MD 03/06/20254121Mfgnwf53/07/2025Travelfrom Last 3 Months Immunizations ImmunizationAdministration DatesNext DueInfluenza, High Dose Seasonal, Preservative Free02/28/2020,02/27/2019Influenza, Recombinant, injectable, preservative free04/11/2024Influenza, Ifkqeppohav80/01/2018,03/04/2016, 12/07/2014,05/01/2014,04/07/2013,09/12/2009Influenza, injectable, MDCK, preservative free, bjnveayrfddd69/28/2021Influenza, injectable, quadrivalent, preservative free05/01/2023,04/11/2022,03/25/2019,04/29/2018,04/21/2017, 01/27/2017,04/04/2015Influenza, recombinant, quadrivalent, injectable, preservative free10/07/2023,08/21/2023,04/12/2020Influenza, seasonal, injectable 04/02/2022,04/26/2018,02/28/2016,04/21/2014,06/29/2011,03/28/2011Influenza, seasonal, injectable, preservative free04/16/2020Pneumococcal Conjugate PCV 20 3Pneumococcal Polysaccharide UEJP6459Tdap10/24/2023,03/28/2011 Zoster, Anrpobahwlp16/15/2020,04/12/2020 Family History Medical HistoryRelationNameCommentsHypertensionFatherLarry HirtHypertension MotherCarol HirtCancerOtherDiabetesOtherHypertensionOtherSeizuresOtherStroke OtherRelationNameStatusCommentsBrotherx 1AliveFatherLarry HirtAliveMotherCarol HirtAliveOtherSiblingAliveSisterx 1AliveSonx 9Ijtffq6 Social History Tobacco UseTypesPacks/DayYears UsedDateSmoking Tobacco: NeverSmokeless Tobacco: Never Tobacco Cessation:Counseling Given: Not Answered Alcohol UseStandard Drinks/WeekCommentsYes0 (1 standard drink = 0.6 oz pure alcohol)AUDIT-CAnswerDate RecordedQ1: How often do you have a drink containing alcohol?4 or more times a week10/29/2023Q2: How many drinks containing alcohol do you have on a typical day when you are drinking?1 or Q3: How often do you have six or more drinks on one occasion?Never10/29/2023Sex and Gender InformationValueDate RecordedSex Assigned at VtjyvQljt62/27/2024 9:51 PM EDT Legal AggYgzh7109/10/2022 6:58 PM EDTGender MwdwlocwHlkr24/27/2024 9:51 PM EDT Sexual VcpvrnzldhoZuixejho57/27/2024 9:51 PM EDT Last Filed Vital Signs Vital SignReadingTime TakenCommentsBlood Lzypfmvp677/80003/06/2025 9:19 AM EDT Rregx523403/06/2025 9:19 AM EDTTemperature--Respiratory Nqwe080503/06/2025 9:19 AM EDTOxygen Vfcsanezho75%03/06/2025 9:19 AM EDTInhaled Oxygen Concentration-- Kyvbhl394 kg (266 lb)03/06/2025 10:29 AM DONRuyafq806.5 cm (5' 9.5 )03/06/2025 10:29 AM EDTBody Mass Index38.72003/06/2025 10:29 AM EDT Plan of Treatment DateTypeDepartmentCare Team (Latest Contact Info)Vwtlnvfjfsx94/09/2026 10:10 AM EDTOffice Visit [facility] [address] [place] [address] Rosey Dubose MD [address] [place] [address] Health MaintenanceDue DateLast DoneCommentsCT Omyizvxttgtj1959Colonoscopy 1959Colorectal Cancer Nozwufkni1959FIT-DNA1959FIT1959 FOBT1960 9894Bnlzhgmglcnwn1959COVID-19 Vaccine ( season) , 01/02/2022, 04/25/2021, Additional history exists Pneumococcal Vaccine: 65+ DdxziBhaiihypd70/03/2023, 12/08/2014Influenza Vaccine Rbiqrbbea77/03/2025, 04/11/2024, 10/07/2023, Additional history exists Procedures Procedure NamePriorityDate/TimeAssociated DiagnosisCommentsXR SHOULDER 2+ VIEWS LGJHBNlbxstr41/08/2025 9:10 AM EDT Right shoulder pain, unspecified chronicity from Last 3 Months Results * XR shoulder 2+ views right (03/06/2025 9:10 AM EDT)Anatomical RegionLaterality ModalityUpper Extremities, ShoulderRightRadiographic ImagingSpecimen (Source) Anatomical Location / LateralityCollection Method / VolumeCollection Time Received Time Narrative 03/06/2025 11:18 AM EDT Imaging Result: ??AP Grashey and scapular Y-view of the right shoulder demonstrates no obvious fracture or subluxation of the reverse shoulder replacement. ?? Authorizing ProviderResult TypeResult StatusTodd D Mike PAIMG XR PROCEDURES Final Result from Last 3 Months Insurance * Guarantor: Richard Urena TypeRelation to PatientDate of BirthPhone Billing AddressPersonal/FqhvobLkcw1960 [address] [place] [address] Care Teams Team MemberRelationshipSpecialtyStart DateEnd Date Socrates Valdovinos MD [address] [facility] [place] [phone] [facility] - [facility]23 Kristi Blake PA [address] [facility] [address] [place], [place] [id number] Physician AssistantNeurology09/08/24
--- OUTSIDE RECORDS SUMMARY | 2025-05-31 11:06 | XMS_ITS | CCD ---
Author Organization [facility] CliniSyil Care Team Providers Care Locker Attendant Name Role Phone JOSE VALDOVINOS Primary Care Physician [phone] Ariana Lutz Unavailable Unavailable Jose Valdovinos Primary Care Provider [phone] Jose Valdovinos Unavailable Jose Valdovinos Primary Care Provider [phone] Jose Valdovinos Unavailable Unavailable Unavailable Graham, Fernanda Unavailable ObDO Jose contreras Primary Care Provider MD Yobany Nelson Attending Provider NO FAMILY, PHYSICIAN Primary Care Provider Unava MANISH Meza Attending Provider Graham, LUNCHROOM MOTHER Fernanda Other Provider ObDO Jose contreras Other Provider MD Loyda Steele Attending Provider MD Rosey Dubose Other Provider Jose Valdovinos Primary Care Provider DO Jose Valdovinos Primary Care Provider [phone] CYNDY STEELEAITH Admitting Unavailable LOYDA STEELE Attending Unavailable JOSE VALDOVINOS Primary Care Unavailable MD DILLON, ELSY Consulting Unavaila ble JOSE VALDOVINOS Primary Care Unavailable HABFERNANDA LOYDA Admitting Unavailable LOYDA STEELE Attending Unavailable JOSE VALDOVINOS Primary Care Unavailable KUMAR MOCK Consulting Unavailable Xavi mSith Unavailable Graham, LUNCHROOM MOTHER Fernanda Other Provider Oberer, DO Jose Primary Care Provider Oberer, DO Jose Other Provider MD Loyda Steele Attending Provider MD Rosey Dubose Other Provider MANISH Beltran Attending Provider [phone] MANISH Jameson Emergency Provider MD Cathy Zavala Admit Provider MD Cathy Zavala Attending Provider Fabiola Montemayor Other Provider Unavailable DO Christine Bryson Other Provider MD Se Rodriges Other Provider [phone] DO Cornel Carson Other Provider [phone] Eduardo ANP- Marci Other Provider DO Ortega Haskins Other Provider ANITA Huerta Other Provider MD Xavi Smith Other Provider DO Ortega Haskins Attending Provider [phone] Eddi Raquel Unavailable Oberer, Jose Paras Primary Care Provider Oberer, DO Jose Primary Care Provider DO Rafael Zheng Attending Provider MD Loyda Steele Attending Provider [phone] MD Loyda Steele Other Provider [phone] Oberer, Jose Paras Primary Care Unavailable Andrzej, Dr. Gonzalez Attending Unavaila ble Dr. Danisha Bran Referring Unavaila ble Oberer, Jose Paras Primary Care Unavailable Obgustabor, Jose Paras Primary Care Unavailable Dr. Danisha Bran Attending Unavaila ble Oberer, DO Jose Primary Care Provider Oberer, DO Jose Attending Provider [phone] Alise Renteria Unavailable Oberer, DO Jose Primary Care Provider Norm DO Rafael Kwong Attending Provider [phone] Oberer, DO Jose Attending Provider JordonDO [...] Care Provider Oberer, DO Jose Attending Provider DO Olvin Andino Attending Provider [phone] MD Rafael Holbrook Attending Provider Oberer, DO Jose Primary Care Provider Oberer, DO Jose Attending Provider [phone] ROSARIO Graham Attending Provider MD Rosey Dubose Attending Provider John Soto Unavailable [phone] Oberer, DO Jose Primary Care Provider Oberer, DO Jose Attending Provider MD John Soto Attending Provider Oberer, DO Jose Primary Care Provider Oberer, DO Jose Attending Provider Oberer DO, Jose Paras Primary Care Provider Oberer, DO Jose Primary Care Provider MD John Soto Attending Provider Oberer, DO Jose Attending Provider SILVIO Posey Attending Provider [phone] Oberer DO, Jose Paras Primary Care Provider Oberer, DO Jose Primary Care Provider MD John Soto Attending Provider Oberer, DO Jose Attending Provider Oberer, DO Jose Primary Care Provider SILVIO Posey Attending Provider Oberer, DO Jose Primary Care Provider SILVIO Martinez Attending Provider Oberer, DO Jose Primary Care Provider Oberer, DO Jose Attending Provider OBERER, JOSE Admitting Unavailable CATALINA, NATANAEL Referring Unavailable OBERER, JOSE Attending Unavailable CATALINA, NATANAEL Referring Unavailable CATALINA, NATANAEL Attending Unavailable CATALINA, NATANAEL Admitting Unavailable Oberer, DO Jose Primary Care Provider Oberer, DO Jose Attending Provider [phone] MD Jhonny Kaminski Attending Provider Oberer DO, Jose Paras Primary Care Provider Jose Valdovinos MD Primary Care Provider [phone] Oberer, DO Jose Primary Care Provider MD Jhonny Kaminski Attending Provider Oberer, DO Jose Attending Provider [phone] Oberer DO, Jose Primary Care Provider [phone] Jhonny Kaminski MD Attending Provider Oberer DO, Jose Attending Provider Oberer DO, Jose L Primary Care Provider Oberer DO, Jose Primary Care Provider Se Rodriges MD Unavailable Oberer DO, Jose Primary Care Provider Sedrick [facility] Provider Kristi Strickland Unavailable Oberer DO, Jose Attending Provider [phone] Jose Valdovinos MD L Primary Care Provider Jose Valdovinos MD Primary Care Provider Chapito MACIAS, Steven Colon Attending Unavailable OBERER, JOSE Referring Unavailable Gilmar EDUARDO Attending Unavailable Se Rodriges Admitting Unavailable Se Rodriges Attending Unavailable Se Rodriges Referring Unavailable OBERER, JOSE Admitting Unavailable OBERER, JOSE Attending Unavailable NATANAEL MARTINEZ Referring Unavailable Oberer DO, Jose L Primary Care Provider DANISHA BRAN Attending Unavailable TRABOULSSI, MODGF Referring Unavailable OBERER, JOSE L Primary Care Unavailable TRABOULSSDANISHA Alvarado Attending Unavailable TRABOULSSI, MODGF Referring Unavailable OBERER, JOSE L Primary Care Unavailable Oberer DO, Jose Primary Care Provider Santos LUNCHROOM MOTHER, Fernanda Attending Provider [phone] Oberer DO, Jose Attending Provider [phone] Tino Merritt LUNCHROOM MOTHER-C, Palak Alvarez Attending Provid er Rafael Holbrook MD Attending Provider Danisha Bran MD Attending Provider Oberer DO, Jose Primary Care Provider [phone] Oberer DO, Jose Attending Provider Rosey Dubose MD Attending Provider OBERER, JOSE PARAS Primary Care Unavailable HABBOUB, LOYDA Referring Unavailable OBERER, JOSE PARAS Primary Care Unavailable OBERER, JOSE PARAS Primary Care Unavailable HABBOUB, LOYDA Referring Unavailable OBERER, JOSE PARAS Primary Care Unavailable GUILLAUME BHANDARI Referring Unavailable GUILLAUME BHANDARI Attending Unavailable GUILLAUME BHANDARI Admitting Unavailable KG CARSON Attending Unavailable ROSEY DUBOSE F Attending Unavailable EKATERINA DUBOSEMAD F Referring Unavailable KRISTI BLAKE Referring Unavailable EWA RODRIGUEZ Attending Unavailable ROSEY DUBOSE Attending Unavailable LIZY MCKEON Referring Unavailable SE RODRIGES Attending Unavailable KG CARSON Attending Unavailable LIZY MCKEON Attending Unavailable OBERER, JOSE PARAS Referring Unavailable OBERER, JOSE PARAS Primary Care Unavailable HABBOUB, LOYDA Attending Unavailable OBERER, JOSE PARAS Primary Care Unavailable HABBOUB, LOYDA Referring Unavailable HABBOUB, LOYDA Attending Unavailable OBERER, JOSE PARAS Primary Care Unavailable HABBOUB, LOYDA Referring Unavailable HABBOUB, LOYDA Attending Unavailable HABBOUB, LOYDA Attending Unavailable OBERER, JOSE PARAS Primary Care Unavailable Oberer DO, Jose Primary Care Provider [phone] Fam HOWARD-TESTING MANAGER-Ramandeep Phillips Attending Provider Oberer DO, Jose Attending Provider [phone] Oberer, Jose Primary Care Unavailable Sedrick, Ahmad Admitting Unavailable Sedrick, Ahmad Attending Unavailable Oberer, Jose Attending Unavailable Oberer, Jose Admitting Unavailable Oberer, Jose Primary Care Unavailable Oberer, Jose Primary Care Unavailable Oberer, Jose Attending Unavailable Oberer, Jose Admitting Unavailable Traboulssi, Mourhaf Admitting Unavailable Oberer, Jose Primary Care Unavailable Traboulssi, Mourhaf Attending Unavailable Traboulssi, Mourhaf Admitting Unavailable Oberer, Jose Primary Care Unavailable Traboulssi, Mourhaf Attending Unavailable Oberer, Jose Primary Care Unavailable Rafael Holbrook Referring Unavailable Chalo Linares Admitting Unavailable Chalo Linares Attending Unavailable Oberer, Jose Primary Care Unavailable Oberer, Jose Attending Unavailable Oberer, Jose Admitting Unavailable Oberer, Jose Primary Care Unavailable Sedrick, Ahmad Admitting Unavailable Sedrick, Ahmad Attending Unavailable Oberer, Jose Primary Care Unavailable Oberer, Jose Attending Unavailable Oberer, Jose Admitting Unavailable Palak Decker Admitting Unava ilable Palak Decker Attending Unava ilable Oberer, Jose Primary Care Unavailable Kg Carson DO Attending Provider Jose Valdovinos MD Primary Care Provider [phone] Kristi Strickland Unavailable Oberer , Jose Primary Care Provider Danisha Bran MD Attending Provider Rosey Dubose MD Attending Provider Fam HOWARD-TESTING MANAGER-C, Ramandeep Oconnor Attending Provider Jose Valdovinos DO Attending Provider [phone] Kg Carson DO Attending Provider Allergies Allergy ClassificationReported Allergen(s)Allergy TypeDate of OnsetReaction(s) Facility (20 sources)Latex; Translations: [Latex]Drug [id number], Unknown, [facility] Check-Cap Other Comment on above:This patient is not Allergic to Albuterol. (20 sources)Penicillins; Translations: [penicillins]Drug [id number] Pharyngeal swelling (finding), Anaphylaxis, [facility] (20 sources)busPIRoneDrug AllergyPark[facility] Check-Cap Other (20 sources)PenicillinDrug Allergythroat [facility] Check-[facility] Other (20 sources)busPIRone; Translations: [buspirone]Drug Cqjalld32-29-9610MdgasbmdGuernsey [facility] Medications Current Medications MedicationDrug Class(es)DatesSig (Normalized)Sig (Original)3 ML semaglutide 1.34 MG/ML Pen Injector [Ozempic] (8 sources)Start: 07-10-0504aftupy 1 mg by subcutaneous injection every week Ozempic (1 MG/DOSE) 4 MG/3ML 1 mg Subcutaneous Once a week for 28 days Sep, Active3 ML semaglutide 2.68 MG/ML Pen Injector [Ozempic] (19 sources)Start: 38-76-1914lqwhzx 2 mg by subcutaneous injection every week Ozempic (2 MG/DOSE) 8 MG/3ML 2 mg Subcutaneous weekly for 30 days Patient assistance. Nov, Activeinject 2 mg by subcutaneous injection every week inject 2 mg by subcutaneous injection every weekOzempic (2 MG/DOSE) 8 MG/3ML 2 mg Subcutaneous weekly Patient assistance. Activeinject 2 mg by subcutaneous injection every weekOzempic (2 MG/DOSE) 8 MG/3ML 2 mg Subcutaneous weekly for 30 days Patient assistance. Activeacetaminophen 325 mg / HYDROcodone bitartrate 7.5 mg oral tablet (20 sources)Opioid AgonistStart: 66-78-0651ivyw 1 tablet by mouth three times dailyHydrocodone-Acetaminophen 7.5-325 mg tablet Active 1 TAB PO Three times daily January 30, 2025 11:00pm Complies with drug therapyStart: 09-28-2024 End: 13-18-9959hrxd 1 tablet by mouth three times dailyHydrocodone-Acetaminophen 5-325 mg tablet Discontinued TAB PO Three times daily 0 September 27, 2024 11:00pm January 31, 2025 8:47amStart: 86-14-3364rggb 1 tablet by mouth three times dailyHydrocodone-Acetaminophen 5-325 mg tablet Active TAB PO Three times daily September 28, 2024 12:00amStart: 05-06-2024 End: 96-81-0006dpgd 1 tablet by mouth three times dailyHydrocodone-Acetaminophen 7.5-325 mg tablet Discontinued TAB PO Three times daily 0 May 06, 2024 12:00am September 28, 2024 1:54pmStart: 10-30-2023 End: 87-33-8568kkya 1 tablet by mouth three times dailyHydrocodone-Acetaminophen 5-325 mg tablet Discontinued 1 TAB PO Three times daily 0 October 29, 2023 11:00pm May 06, 2024 8:42am FreeTextSi Tablet Orally tid; Note: Source Status: Taking; Provider: Dr MartinezStart: 05-06-2022 End: 43-93-4578jbrg 1 tablet by mouth every six hours as needed for pain Hydrocodone-Acetaminophen 5-325 mg Tablet Discontinued 1 TAB PO Every 6 hours as needed for Pain 123 0 May 06, 2022 June 02, 2022 8:51am Post- laminectomy syndrome Postlaminectomy syndrome, not elsewhere classifiedStart: 03-13-2022 End: 25-24-4425xwar 1 tablet by mouth every six hours as needed for pain HYDROcodone-acetaminophen (NORCO) 5-325 mg per tablet Indications: Lumbar pseudoarthrosis Take 1 tablet by mouth every 6 hours as needed for pain for up to 7 days. 28 tablet 0 03/21/2022 03/28/2022 ActiveStart: 02-27-2022 End: 84-99-5091qzgv 1 tablet by mouth every eight hours as needed for pain HYDROcodone-acetaminophen (NORCO) 5-325 mg per tablet Indications: Lumbar pseudoarthrosis Take 1 tablet by mouth every 8 hours as needed for pain for up to 7 days. 21 tablet 0 03/06/2022 03/13/2022 DiscontinuedStart: 02-20-2022 End: 54-05-0121zcye 1 tablet by mouth every six hours as needed for pain HYDROcodone-acetaminophen (NORCO) 5-325 mg per tablet Indications: Radiculopathy, lumbar region Take 1 tablet by mouth every 6 hours as needed for pain for up to 7 days. 28 tablet 0 02/20/2022 02/27/2022 ActiveStart: 01-23-2022 take 1 tablet by mouth every four to six hours as needed for painHYDROcodone- Acetaminophen 5-325 MG Oral Tablet TAKE 1 TABLET EVERY 4 TO 6 HOURS NEEDED FOR PAIN.Quantity: 0 Refills: 0 Ordered: 30-Jan-2022 DO Start : 23-Jan-2022 ActiveStart: 01-23-2022 End: 13-44-6811ecdx 1 tablet by mouth every eight hours as needed for pain HYDROcodone-acetaminophen (NORCO) 5-325 mg per tablet Indications: Radiculopathy, lumbar region Take 1 tablet by mouth every 8 hours as needed for pain for up to 7 days. 21 tablet 0 02/13/2022 02/20/2022 DiscontinuedStart: 85-96-4172ooyq 1 tablet by mouth every eight hours as needed for pain HYDROcodone-acetaminophen (NORCO) 5-325 mg per tablet Indications: Radiculopathy, lumbar region Take 1 tablet by mouth every 8 hours as needed for pain. 42 tablet 0 01/15/2022 ActiveStart: 02-27-7474qbhw 1 tablet by mouth every eight hours as needed for painHYDROcodone-Acetaminophen (NORCO) 10-325 mg per tablet Indications: Spondylolisthesis of lumbar region , Lumbar radiculopathy Take 1 tablet by mouth every 8 hours as needed for pain. 38 tablet 0 12/12/2021 SuspendedStart: 81-16-5018qglt 1 tablet by mouth every eight hours as needed for painHYDROcodone-Acetaminophen (NORCO) 10-325 mg per tablet Indications: Spondylolisthesis of lumbar region , Lumbar radiculopathy Take 1 tablet by mouth every 8 hours as needed for pain. 38 tablet 0 12/04/2021 ActiveStart: 78-67-5933Butmx 325 mg-5 mg oral tablet 1 tab(s), Oral, q4hr pain, 30 tab(s), Refill(s) 0 Start Date: 09/23/21Status: Ordered Quantity: 30.0 Unit: tab(s) Repeat number: 1Start: 47-53-9857hgja 1 tablet by mouth every six hours as neededHYDROcodone-acetaminophen (NORCO) 5-325 mg per tablet Indications: Post-op pain , S/P lumbar fusionTake 1 tablet by mouth every 6 hours as needed. 30 tablet 0 09/22/2021 ActiveStart: 04-21-2017 End: 65-01-7505HEVCKcwtqnt-acetaminophen (NORCO) 5-325 mg per tablet three times daily. 04/21/2017 09/04/2021 DiscontinuedStart: 03-30-2017 End: 63-32-7510hutu 1 tablet by mouth twice dailyHydrocodone-Acetaminophen 5-325 mg tablet Discontinued 1 TAB PO Twice daily March 29, 2017 11:00pm May 03, 2022 2:14pmtake 1 tablet by mouth in the morning, then take 1 tablet by mouth in the evening, then take 1 tablet by mouth at bedtimeHYDROcodone- acetaminophen (Valatie) 7.5-325 MG tablet Take 1 tablet by mouth in the morning and 1 tablet in the evening and 1 tablet before bedtime. Active End: 71-31-8694bogg 1 tablet by mouth every eight hours as neededHYDROcodone- Acetaminophen (NORCO) 7.5-325 mg per tablet Take 1 tablet by mouth every 8 hours as needed for pain. 0 ActiveHYDROcodone-acetaminophen (Valatie) 5-325 MG tablet 1 tablet Activetake 1 tablet by mouth three times daily as neededtake 1 tablet by mouth three times daily as neededNorco 5-325 MG 1 tablet as needed Orally three times a day ActiveComment on above:Take 1 tablet by mouth every 6 hours as needed.Take 1 tablet by mouth every 8 hours as needed for pain.Take 1 tablet by mouth every 8 hours as needed for pain for up to 7 days.Take 1 tablet by mouth every 6 hours as needed for pain for up to 7 days.Take 1 tablet by mouth every 6 hours as needed for pain for up to 14 days.Ajovy 225 mg/1.5 mL subcutaneous solution (5 sources)Start: 00-17-8684bxcemk 250 mg by subcutaneous injection every month Ajovy 225 mg/1.5 mL subcutaneous solution 250 mg, SubCutaneous, qMonth, Refills(s) 0, Migraine headache Start Date: 04/26/19 Status: OrderedAjovy Autoinjector (1 source)Start: 24-29-7477ykvocj 1 mg by subcutaneous injection every month Ajovy Autoinjector mg, SubCutaneous, qMonth, Refills(s) 0 Start Date: 12/05/24 Status: Ordered Repeatnumber: 1Ajovy Autoinjector 225 mg/1.5 mL subcutaneous solution (1 source)Start: 75-78-9893yfgyrz 225 mg by subcutaneous injection every month Ajovy Autoinjector 225 mg/1.5 mL subcutaneous solution 225 mg, SubCutaneous, qMonth, Refills(s) 0 Start Date: 11/20/21 Status: Kysgjoxqsz199813 200 actuat albuterol 0.09 mg/actuat metered dose inhaler (12 sources)beta2-Adrenergic Agonistalbuterol (Ventolin HFA) 90 mcg/actuation inhaler Use as directed ActiveVentolin 90 MCG/ACT AERS USE DIRECTED. Quantity: 0 Refills: 0 Ordered: 24-Oct-2022 DO Activetake 1 puff(s) by inhalation every four hours as neededVentolin HFA 108 (90 Base) MCG/ACT 1 puff as needed Inhalation every 4 hrs ActiveCreon (20 sources)Start: 28-59-5796Pvxho Oral, TID Start Date: 12/05/24 Status: Ordered Repeat number: 1Start: 10-30-2023 End: 51-74-5981ovtr 29415-145108 capsules by mouth four times daily at mealtime Zbthil-Gygrkypo-Hqdykpr (Pork) (Creon) 36,000-114,000- 180,000 unit capsule,delayed release(DR/EC) Discontinued 2 CAP PO Four times daily October 29, 2023 11:00pm April 18, 2025 8:03am administer with meals and/or snackstake 1 capsule by mouth once dailypancrelipase, Tcz-Owuw-Skou, (Creon) 36,000-114,000- 180,000 unit capsule,delayed release(DR/EC) capsule Take 1 capsule by mouth once daily. Activeascorbic acid 500 mg chewable tablet (20 sources)Vitamin C End: 04-04-7967plpy 1 tablet by mouth once dailyascorbic acid (Vitamin C) 500 MG tablet Take 1 tablet by mouth Daily ActiveVitamin C ActiveComment on above:Take 500 mg by mouth once daily.ascorbic acid 125 mg / collagen, hydrolyzed 740 mg oral capsule (20 sources)Vitamin CStart: 13-58-5924yynh 2 capsules by mouth twice daily Ascorbic Acid-Collagen (Collagen Plus Vitamin C) 125-740 mg capsule Active 2 CAP PO Twice daily 2023 11:00pm Complies with drug therapyStart: 10-30-2023 Ascorbic Acid-Collagen (Collagen Plus Vitamin C) 125-740 mg capsule Active CAP PO October 30, 2023 12:00amb complex 0.4 mg tablet (3 sources)take 1 tablet by mouth once dailyb complex 0.4 mg tablet Take 1 tablet by mouth once daily. Activeb complex 0.4 mg tablet As directed 0 Active biotin 5 mg sublingual tablet (20 sources)Start: 72-69-4699jyvg 1 tablet by mouth once dailyBiotin 5,000 mcg tablet, sublingual Active 5000 MCG SUBLINGUAL Daily October 29, 2023 11:00pm FreeTextSi tablet Orally Once a day; Note: Source Status: Taking; Provider: Bonifacio Garcia ( ) Complies with drug therapyStart: 78-13-8681kdhc 1 tablet by mouth once dailyBiotin 5000 MCG sublingual tablet Take 1 tablet by mouth Daily 10/30/2023 ActiveStart: 03-30-2017 End: 16-94-0981pwfs 1 tablet by mouth once daily at bedtimeBiotin 10,000 mcg Capsule Discontinued 1 TAB PO Daily at bedtime March 29, 2017 11:00pm October 7:40amStart: 39-01-2298assr 1 tablet by mouth at bedtimebiotin 10,034oahd6 tabs, Oral, Bedtime, Refills(s) 0, Migraine headache Start Date: 01/25/16 Status:Ordered End: 60-54-9538bkdj 10 ug by mouth once daily at bedtimeBIOTIN ORAL Take 10 mcg by mouth daily at bedtime. 11/27/2021 Discontinuedtake 1 tablet by mouth every twenty-four hoursBiotin 5000 MCG 1 tablet Orally Once a day Activetake 1 tablet by mouth every twenty-four hourstake 1 tablet by mouth once dailyBiotin Maximum Strength 85209 MCG Oral Tablet TAKE 1 TABLET DAILY. Quantity: 0 Refills: 0 Ordered: 16-Jul-2022 DO Activetake 10 ug by mouth once daily at bedtimeBIOTIN ORAL Take 10 mcg by mouth daily at bedtime. 0 ActiveComment on above:Take 10 mcg by mouth daily at bedtime. bisacodyl 5 mg delayed release oral tablet (20 sources)Stimulant LaxativeStart: 77-08-3486vsyi 2 tablets by mouth once daily as needed for constipationbisacodyl 5 mg Oral EC Tab 10 mg = 2 tab(s), Oral, Daily, PRN for constipation, # 20 tab(s), Refills(s) 0 Start Date: 09/24/21 Status: Ordered Quantity: 20.0 Unit: tab(s) Repeat number: 1Comment on above: Take 2 tablets by mouth once daily as needed.calcitonin 200 intl units/inh Nasal [place] (1 source)Start: 91-14-9767hten 1 spray(s) by inhalation once dailycalcitonin 200 intl units/inh Nasal [place] = 1 spray(s), Nasal, Daily, Refills(s) 0, Prophylaxis Start Date: 08/11/17 Status: OrderedCalcium (8 sources)Phosphate Binder, CalciumCalcium + D3 ActiveCalcium Carb- Cholecalciferol (OS-DEISY CALCIUM + D3 PO) (16 sources)take 1 tablet by mouth once dailyCalcium Carb-Cholecalciferol (OS- DEISY CALCIUM + D3 PO) Take 1 tablet by mouth Daily Activecalcium carbonate 1500 mg / cholecalciferol 0.01 mg oral tablet (7 sources)Vitamin DStart: 90-18-7612ybes 1 tablet by mouth once dailycalcium- vitamin D 600 mg-400 intl units oral tablet 1 tab(s), Oral, Daily, Refill(s) 0, ProphylaxisStart Date: 08/11/17 Status: OrderedStart: 21-82-0490keyj 1 tablet by mouth once dailycalcium-vitamin D 600 mg-400 intl units oral tablet 1 tab(s), Oral, Daily, Refill(s) 0, ProphylaxisStart Date: 08/11/17 Status: OrderedCalcium Carbonate / vitamin D3 (20 sources)take 1 tablet by mouth once dailyCALCIUM CARBONATE/VITAMIN D3 (CALCIUM 600 + D ORAL) Take 1 tablet by mouth once daily. Activetake 1 tablet by mouth once dailyCALCIUM CARBONATE/VITAMIN D3 (CALCIUM 600 + D ORAL) Take 1 tablet by mouth once daily. 0 Suspendedtake 1 tablet by mouth once dailyCALCIUM CARBONATE/VITAMIN D3 (CALCIUM 600 + D ORAL) Take 1 tablet by mouth once daily. 0 ActiveComment on above:Take 1 tablet by mouth once daily. calcium-vitamin D 600 mg-400 intl units oral tablet (8 sources)Start: 71-81-9170pvap 1 tablet by mouth once dailycalcium-vitamin D 600 mg-400 intl units oral tablet 1 tab(s), Oral, Daily, Refill(s) 0, ProphylaxisStart Date: 08/11/17 Status: Ordered Repeat number: 1Start: 08-11-2017 take 1 tablet by mouth once dailycalcium-vitamin D 600 mg-400 intl units oral tablet 1 tab(s), Oral, Daily, Refill(s) 0, ProphylaxisStart Date: 08/11/17 Status: Orderedcbd- hemp oil (1 source)Start: 79-07-8138bnkg 2 tablets by mouth once dailycbd- hemp oil cbd- hemp oil, 2 tab(s), Oral, Daily Start Date: 04/26/19 Status: Ordered cholecalciferol 0.125 mg oral capsule (20 sources)Vitamin DStart: 13-01-2655ouhc 1 capsule by mouth once daily at mealtimecholecalciferol 5000 intl units oral capsule 125 mcg = 1 cap(s), Oral, Daily, with food, # 100 cap(s), Refills(s) 0 Start Date: 09/24/21 Status: Ordered Quantity: 100.0 Unit: cap(s) Repeat number: 1Start: 45-49-3635cooa 1 capsule by mouth once daily at mealtimecholecalciferol 5000 intl units oral capsule 125 mcg = 1 cap(s), Oral, Daily, with food, # 100 cap(s), Refills(s) 0 Start Date: 09/24/21 Status: OrderedStart: 30-37-1690qopf 1 capsule by mouth once daily at mealtimecholecalciferol 5000 intl units oral capsule 125 mcg = 1 cap(s), Oral, Daily, with food, # 100 cap(s), Refills(s) 0 Start Date: 09/24/21 Status: Ordered take 2 tablets by mouth once dailycholecalciferol (Vitamin D3) 25 MCG (1000 UT) tablet Take 2 tablets by mouth Daily Active End: 90-61-6986athh 1 capsule by mouth once dailyCholecalciferol, Vitamin D3, 1,000 unit cap Take 1,000 Units by mouth once daily. 08/07/2021 Discontinued (Course of therapy completed)cholecalciferol, vitamin D3, (D3-50 CHOLECALCIFEROL ORAL) (3 sources)take 1 tablet by mouth once dailycholecalciferol, vitamin D3, (D3-50 CHOLECALCIFEROL ORAL) Take 1 tablet by mouth once daily. Activecholecalciferol, vitamin D3, (D3-50 CHOLECALCIFEROL ORAL)chromium picolin,hist/minerals (CHROMIUM PICOLINAT,HISTID-MINS ORAL) (2 sources) End: 94-73-5330ouwnezdr picolin,hist/minerals (CHROMIUM PICOLINAT,HISTID-MINS ORAL) 800 mcg take as directed 07/22/2024 Discontinued (Therapy completed) chromium picolin,hist/minerals (CHROMIUM PICOLINAT,HISTID-MINS ORAL) 800 mcg take as directed 0 Activechromium picolinate 0.8 mg oral tablet (20 sources)Start: 53-98-5234lhtq 1 tablet by mouth once dailychromium picolinate 800 mcg oral tablet 800 mcg = 1 tab(s), Oral, Daily, Refills(s) 0 Start Date: 09/24/21 Status: Orderedtake 800 ug by mouth once dailyCHROMIUM PICOLINATE ORAL Take 800 mcg by mouth once daily. ActiveChromium Picolinate 800 MCG Oral Tablet TAKE DIRECTED. Quantity: 0 Refills: 0 Ordered: 24-Oct-2022 DO Activetake 800 ug by mouth once dailyCHROMIUM PICOLINATE ORAL Take 800 mcg by mouth once daily. 0 Suspendedtake 800 ug by mouth once dailyCHROMIUM PICOLINATE ORAL Take 800 mcg by mouth once daily. 0 ActiveComment on above:Take 800 mcg by mouth once daily.clopidogrel 75 mg oral tablet (20 sources)P2Y12 Platelet InhibitorStart: 34-43-5000evcl 1 tablet by mouth once dailyClopidogrel 75 mg tablet Active 75 MG PO Daily October 31, 2024 9:05am Complies with drug therapyStart: 04-25-2024 End: 63-58-5465Deeoyuybjky 75 mg tablet Discontinued 0 .ROUTE .COMPLEX July 28, 2024 1:19pm October 20, 2024 7:28am TAKE 1 TABLET DAILYStart: 10-29-2023 End: 66-12-8225Lyuscsltecn 75 mg tablet Discontinued 0 .ROUTE .COMPLEX October 29, 2023 8:51am December 10, 2023 12:38pm TAKE 1 TABLET DAILYStart: 10-29-2023 End: 20-60-5229Xzhzsuotwex 75 mg tablet Discontinued 0 .ROUTE .COMPLEX October 29, 2023 9:51am December 10, 2023 1:38pm TAKE 1 TABLET DAILYStart: 10-29-2023 End: 12-57-6565Fdmvkdbnjtj 75 mg tablet Discontinued 0 .ROUTE .COMPLEX October 29, 2023 8:51am December 10, 2023 12:38pm TAKE 1 TABLET DAILYStart: 10-29-2023 End: 20-83-6864Hzreyolgsiw Discontinued 0 .ROUTE .COMPLEX October 29, 2023 8:51am December 10, 2023 12:38pm TAKE 1 TABLET DAILYStart: 10-29-2023 End: 90-38-0967Eeuuxbjqkgx Discontinued 0 .ROUTE .COMPLEX October 29, 2023 9:51am December 10, 2023 1:38pm TAKE 1 TABLET DAILYStart: 14-82-6394Adqmnxvumvl Active 0 .ROUTE .COMPLEX October 29, 2023 9:51am TAKE 1 TABLET DAILYStart: 12-12-2014 End: 05-31-2342aytd 1 tablet by mouth once dailyClopidogrel 75 mg tablet Discontinued 75 MG PO Daily December 10, 2023 12:30pm April 25, 2024 2:57pm Comment on above:Take 75 mg by mouth once daily.Take 1 tablet by mouth once daily. Please hold this medication until post op day 10CoQ-10 50 MG (3 sources)take 1 capsule by mouth once dailyCoQ-10 50 MG 1 capsule with a meal Orally Once a day ActiveDHEA 50 mg oral capsule (8 sources)Start: 76-51-1291qzql 1 tablet by mouth once dailyDHEA 50 mg oral capsule = 1 tab(s), Oral, Daily, Refills(s) 0 Start Date: 09/24/21 Status: OrdereddiazePAM 5 mg oral tablet (18 sources)BenzodiazepineStart: 06-06-2024 End: 74-22-5191fbjxvMTW (Valium) 5 MG tablet Indications: Hyper reflexia Take 1 tablet (5 mg) by mouth 1 time for 1 dose 30 minutes prior to MRI. 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 06/06/2024 03/06/2025 Discontinued (Therapy completed)Diclofenac (20 sources)Nonsteroidal Anti-inflammatory DrugStart: 35-96-2139tesukcitxg Oral, Refills(s) 0 Start Date: 12/05/24 Status: Ordered Repeat number: 1Start: 07-14-2018 End: 66-73-8203oavvz 2 g topically four times dailyDiclofenac Sodium (Voltaren) 1 % Gel Discontinued 2 GM TOPICAL Four times daily July 14, 2018 12:00am September 11, 2021 4:00pmStart: 02-56-5393gmyryichnv 2% topical solution 1 beau, Topical, TID, Refill(s) 0, Inflammation Start Date: 08/11/17 Status: Ordered Start: 03-30-2017 End: 69-99-4391Xqjtqkehts Sodium 1 % Gel Discontinued 1 APPLIC TOPICAL 2-4 TIMES DAILY as needed for Itching March 29, 2017 11:00pm September 11, 2021 4:00pm End: 50-83-2295tkxafhuxxy sodium (VOLTAREN) 1 % topical gel Apply to affected area three times daily. 09/22/2021 DiscontinueddiphenhydrAMINE hydrochloride 25 mg oral capsule (10 sources)Histamine-1 Receptor AntagonistStart: 82-01-7216aybn 1 capsule by mouth every six hours as neededDiphenhist 25 mg oral capsule 25 mg = 1 cap(s), Oral, q6hr, PRN as needed for itching, # 30 cap(s),Refills(s) 0 Start Date: 11/20/21 Status: Ordered Quantity: 30.0 Unit: cap(s) Repeat number: 1 docosahexaenoic acid/epa (FISH OIL ORAL) (20 sources)take 5 capsules by mouth once dailydocosahexaenoic acid/epa (FISH OIL ORAL) Take 5 capsules by mouth once daily. Activetake 5 capsules by mouth once dailydocosahexaenoic acid/epa (FISH OIL ORAL) Take 5 capsules by mouth once daily. 0 Suspendedtake 5 capsules by mouth once dailydocosahexaenoic acid/epa (FISH OIL ORAL) Take 5 capsules by mouth once daily. 0 ActiveComment on above: Take 5 capsules by mouth once daily. docusate sodium 100 mg oral capsule (20 sources)Start: 87-88-4846oear 1 capsule by mouth twice dailydocusate sodium (COLACE) 100 mg capsule Take 1 capsule by mouth twice daily. 08/20/2021 Active Start: 12-12-2014 End: 89-72-6646fmhb 1 capsule by mouth twice dailydocusate sodium (COLACE) 100 mg capsule Take 1 capsule by mouth twice daily. 0 12/12/2014 08/07/2021 Discontinued (Course of therapy completed)Comment on above:Take 1 capsule by mouth twice daily.doxazosin 4 mg oral tablet (20 sources)alpha-Adrenergic BlockerStart: 17-03-3949tqbi 1 tablet by mouth once daily at bedtimeDoxazosin 4 mg tablet Active 4 MG PO Daily at bedtime December 12, 2024 9:35am Complies with drug therapyStart: 11-08-2024 End: 45-27-1744Yipsxkffn 4 mg tablet Discontinued 0 .ROUTE .COMPLEX 90 November 08, 2024 12:30pm December 12, 2024 9:36am TAKE 1 TABLET (4 MG) DAILYStart: 05-02-2024 End: 67-73-0106Artkdvqnp 4 mg tablet Discontinued 0 .ROUTE .COMPLEX 90 May 02, 2024 2:20pm May 06, 2024 2:31pm TAKE 1 TABLET DAILYStart: 11-11-2023 End: 45-76-5344Xgyjrilaj 4 mg tablet Discontinued 0 .ROUTE .COMPLEX 90 1 November 11, 2023 1:20pm December 10, 2023 12:38pm TAKE 1 TABLET DAILYStart: 05-01-2014 End: 13-19-7535tycd 1 tablet by mouth once dailyDoxazosin 4 mg tablet Discontinued 4 MG PO Daily December 10, 2023 12:30pm May 02, 2024 2:21pm Comment on above:Take 4 mg by mouth once daily. doxycycline hyclate 100 mg oral tablet (7 sources)Tetracycline-class DrugStart: 01-30-2022 End: 97-23-7945xboa 1 tablet by mouth twice dailydoxycycline (VIBRA-TABS) 100 mg tablet Take 1 tablet by mouth twice daily for 7 days. 14 tablet 0 01/30/2022 02/06/2022 ActiveStart: 11-27-2021 End: 22-03-8602ikaa 1 capsule by mouth twice dailydoxycycline hyclate (VIBRAMYCIN) 100 mg capsule Take 1 capsule by mouth twice daily for 28 days. 56 capsule 0 11/27/2021 12/26/2021 ExpiredComment on above:Take 1 capsule by mouth twice daily for 28 days.Take 1 tablet by mouth twice daily for 7 days.duloxetine 30 mg Cap-DR (13 sources)Start: 67-73-0211tziv 3 capsules by mouth once dailyduloxetine 30 mg Cap-DR 90 mg, Oral, Daily, Refills(s) 0 Start Date: 09/24/21 Status: Ordered Repeatnumber: 1Start: 60-37-5501vzlb 3 capsules by mouth once dailyduloxetine 30 mg Cap-DR 90 mg, Oral, Daily, Refills(s) 0 Start Date: 09/24/21 Status: Ordered eletriptan 40 mg oral tablet (20 sources)Serotonin-1b and Serotonin-1d Receptor AgonistStart: 09-24-2021 eletriptan 40 mg Tab 40 mg = 1 tab(s), Oral, As Directed, PRN for migraine headache, if headache improves but returns, may repeat dose once after 2 hours, # 6 tab(s), Refills(s) 0 Start Date: 09/24/21Status: OrderedStart: 03-30-2017 End: 06-10-9770jieg 1 tablet by mouth three times daily as needed for headache Eletriptan (Relpax) 40 mg Tablet Discontinued 1 dose pk PO Three times daily as needed for HeadacheOctober 2016 11:00pm September 11, 2021 4:05pmtake 1 tablet by mouth every two hours as neededeletriptan (RELPAX) 40 mg tablet Take 40 mg by mouth as needed. may repeat in 2 hours if necessary ActiveComment on above:Take 40 mg by mouth as needed. may repeat in 2 hours if necessary elppa CoQ10 50 mg oral capsule (8 sources)Start: 02-10-9074imhm 1 capsule by mouth once dailyelppa CoQ10 50 mg oral capsule 50 mg = 1 cap(s), Oral, Daily, # 30 cap(s), Refills(s) 0 Start Date:09/24/21 Status: Orderedferrous sulfate 325 mg oral tablet (20 sources)Start: 30-13-1038uskp 1 tablet by mouth once daily at mealtime Ferrous Sulfate (Ferosul) 325 mg (65 mg iron) tablet Active 325 MG PO Every evening January 30, 2025 11:00pm TAKE 1 TABLET BY MOUTH DAILY WITH FOOD Complies with drug therapyStart: 12-08-2452wsss 1 tablet by mouth once daily at mealtime Ferrous Sulfate (Ferosul) 325 mg (65 mg iron) tablet Active 0 .ROUTE .COMPLEX 90 November 02, 2024 10:41am TAKE 1 TABLET BY MOUTH DAILY WITH FOODStart: 11-01-2024 End: 91-30-0345wota 1 tablet by mouth once daily at mealtimeFerrous Sulfate (Ferosul) 325 mg (65 mg iron) tablet Discontinued 0 .ROUTE .COMPLEX 90 1 November 02, 2024 9:41am January 31, 2025 8:54am TAKE 1 TABLET BY MOUTH DAILY WITH FOOD Start: 08-04-2024 End: 85-02-5207dqnu 1 tablet by mouth once dailyFerrous Sulfate (Ferosul) 325 mg (65 mg iron) tablet Discontinued 325 MG PO Daily 90 0 August 04, 2024 11:47am November 01, 2024 8:57amStart: 05-02-2024 End: 26-53-1418udzc 1 tablet by mouth once daily at mealtimeFerrous Sulfate (Ferosul) 325 mg (65 mg iron) tablet Discontinued 0 .ROUTE .COMPLEX 90 0 August 04, 2024 11:30am August 04, 2024 11:48am TAKE 1 TABLET BY MOUTH DAILY WITH FOODStart: 10-09-2022 End: 60-85-8724svsp 1 tablet by mouth once daily at mealtimeFerrous Sulfate 325 mg (65 mg iron) tablet Discontinued 325 MG PO Daily October 29, 2023 11:00pm October 6t 2023 8:17am FreeTextSig: TAKE ONE TABLET BY MOUTH DAILY WITH FOOD; Note: Source Status: Taking; Refills: 1; Qty: 90 Tablet; Provider: Bonifacio Garcia ( )Start: 36-07-6465jiyc 1 tablet by mouth once daily at mealtimeFerrous Sulfate 325 (65 Fe) MG 1 tablet Orally Daily with food for 30 days Sep, Activetake 1 tablet by mouth once dailyferrous sulfate 325 (65 Fe) MG EC tablet Take 1 tablet by mouth once daily. Do not crush, chew, or split. ActiveFerrous Sulfate 324 (65 Fe) MG Oral Tablet Delayed Release daily Quantity: 0 Refills: 0 Ordered: 24-Oct-2022 DO Activefinasteride 5 mg oral tablet (20 sources)5-alpha Reductase InhibitorStart: 20-62-8237eqwt 1 tablet by mouth once daily at bedtimeFinasteride 5 mg tablet Active 5 MG PO Daily at bedtime December 12, 2024 1:45pm Complies with drug therapyStart: 11-08-2024 End: 48-08-3233Aapnmxrgfru 5 mg tablet Discontinued 0 .ROUTE .COMPLEX 90 November 08, 2024 12:30pm December 12, 2024 1:45pm TAKE 1 TABLET DAILYStart: 11-08-2024 Finasteride 5 mg tablet Active 0 .ROUTE .COMPLEX 90 November 08, 2024 1:30pm TAKE 1 TABLET DAILYStart: 05-02-2024 End: 96-88-3893Pxgbzvriqqu 5 mg tablet Discontinued 0 .ROUTE .COMPLEX 90 May 02, 2024 2:20pm May 10, 2024 12:02pm TAKE 1 TABLET DAILYStart: 05-02-2024 End: 43-20-4131Kjcsmqbfnqu 5 mg tablet Discontinued 0 .ROUTE .COMPLEX 90 May 02, 2024 3:20pm May 10, 2024 1:02pm TAKE 1 TABLET DAILYStart: 05-02-2024 End: 25-75-2611Xgssocvixgf 5 mg tablet Discontinued 0 .ROUTE .COMPLEX 90 May 02, 2024 2:20pm May 10, 2024 12:02pm TAKE 1 TABLET DAILYStart: 52-86-4135Qotwatyqzwa 5 mg tablet Active 0 .ROUTE .COMPLEX 90 May 02, 2024 2:20pm TAKE 1 TABLET DAILYStart: 41-63-5622Wqhvbuqoltl Active 0 .ROUTE .COMPLEX 90 May 02, 2024 2:20pm TAKE 1 TABLET DAILYStart: 11-03-2023 End: 50-21-6150Itcvsbsmgrw 5 mg tablet Discontinued 0 .ROUTE .COMPLEX 90 November 03, 2023 2:40pm December 10, 2023 12:38pm TAKE 1 TABLET DAILYStart: 11-03-2023 End: 91-89-2028Bgbzcxytbuc 5 mg tablet Discontinued 0 .ROUTE .COMPLEX 90 November 03, 2023 3:40pm December 10, 2023 1:38pm TAKE 1 TABLET DAILYStart: 11-03-2023 End: 16-55-7577Qhwvrqkziad 5 mg tablet Discontinued 0 .ROUTE .COMPLEX 90 November 03, 2023 2:40pm December 10, 2023 12:38pm TAKE 1 TABLET DAILYStart: 11-03-2023 End: 75-46-8619Cvjuutyjaag Discontinued 0 .ROUTE .COMPLEX 90 November 03, 2023 2:40pm December 10, 2023 12:38pm TAKE 1 TABLET DAILYStart: 11-03-2023 End: 57-01-8878Wdloovbyckn Discontinued 0 .ROUTE .COMPLEX 90 November 03, 2023 3:40pm December 10, 2023 1:38pm TAKE 1 TABLET DAILYStart: 07-36-1349Qhvrsqdnzgt Active 0 .ROUTE .COMPLEX 90 November 03, 2023 3:40pm TAKE 1 TABLET DAILYStart: 08-27-2013 End: 07-59-2459kuqe 1 tablet by mouth once dailyFinasteride 5 mg tablet Discontinued 5 MG PO Daily December 10, 2023 12:31pm May 02, 2024 2:21pm Comment on above:Take 5 mg by mouth daily at bedtime. Fish Oils (20 sources)Start: 15-17-3722qpji 1 capsule by mouth once dailyFish Oil 1200 mg oral capsule 1,200 mg = 1 cap(s), Oral, Daily, Refills(s) 0, High cholesterol Start Date: 01/25/16 Status: Ordered Repeat number: 1Start: 59-95-8039vptw 1 capsule by mouth once dailyFish Oil 1200 mg oral capsule 1,200 mg = 1 cap(s), Oral, Daily, Refills(s) 0, High cholesterol Start Date: 01/25/16 Status: Ordered take 1 capsule by mouth once dailytake 1 capsule by mouth once dailyFish Oil 1000 MG 1 capsule Orally Once a day Active1.5 ml fremanezumab-vfrm 150 mg/ml prefilled syringe (20 sources)Start: 90-27-1021Uydrnrnypmzq-Vfrm (Ajovy Autoinjector) 225 mg/1.5 mL auto-injector Active 225 MG SUBCUT every month1.5 30 April 17, 2025 11:00pm Chronic migraine without aura with status migrainosus, not intractable Chronic migraine without aura, not intractable, with status migrainosus Complies with drug therapyStart: 33-74-8023dkfaez 1.5 mL by subcutaneous injection every 30 daysfremanezumab (Ajovy) 225 MG/1.5ML auto-injector Indications: Chronic migraine without aura with status migrainosus, not intractable (CMS/HCC) INJECT 1.5ML (225MG) UNDER THE SKIN EVERY 30 DAYS. 4.5 mL1 07/11/2024 ActiveStart: 04-25-2024 End: 23-20-6168cgeujx 225 mg by subcutaneous injection every monthfremanezumab (Ajovy) 225 MG/1.5ML prefilled syringe Indications: Chronic migraine without aura withstatus migrainosus, not intractable INJECT 225MG (1 SYRINGE) UNDER THE SKIN ONE TIME MONTHLY 1.5 mL04/25/2024 03/06/2025 Discontinued (Duplicate order) Start: 04-25-2024 End: 62-92-8068tfnciq 1.5 mL by subcutaneous injection every 30 daysfremanezumab (Ajovy) 225 MG/1.5ML prefilled syringe Indications: Chronic migraine without aura withstatus migrainosus, not intractable (CMS/HCC) Inject 1.5 mL (225 mg) under the skin every 30 (thirty) days 4.5 mL 04/25/2024 07/24/2024 ActiveStart: 23-28-4101ymmrwl 225 mg by subcutaneous injection every monthAjovy 225 MG/1.5ML prefilled syringe Indications: Chronic migraine without aura with status migrainosus, not intractable (CMS/HCC) INJECT 225 MG (1 SYRINGE) SUBCUTANEOUSLY ONE TIME MONTHLY 1.5 mL 02/22/2024 ActiveStart: 82-15-3612bosrig 225 mg by subcutaneous injection every monthfremanezumab (Ajovy) 225 MG/1.5ML prefilled syringe Indications: Chronic migraine without aura withstatus migrainosus, not intractable (CMS/HCC) INJECT 225 MG (1 SYRINGE) SUBCUTANEOUSLY ONE TIME MONTHLY 1.5 mL 3 01/28/2024 ActiveStart: 06-02-2022 End: 77-17-0506Nqahnvrfjguw-Vfrm (Ajovy Syringe) 225 mg/1.5 mL Syringe Discontinued 250 MG SUBCUT Q28D June 02, 2022 12:00am December 19, 2024 9:12am for migraines, patient last injection art: 03-07-1096kjyjrecvaxvw (Ajovy) 225 MG/1.5ML auto-injector Indications: Chronic migraine without aura with status migrainosus, not intractable Inject 1 pen (225 mg) under the skin every 30 (thirty) days INJECT 1.5ML (225MG) UNDER THE SKIN EVERY 30 DAYS. 4.5 mL 3 08/30/2024 Activefremanezumab (Ajovy) 225 mg/1.5 mL prefilled syringe 1.5 mL (225 mg) every 28 (twenty-eight) days. Activefremanezumab (Ajovy) 225 MG/1.5ML auto-injector 225 mg every 30 (thirty) days Activefremanezumab-vfrm (AJOVY SYRINGE SUBCUTANEOUS) (20 sources)fremanezumab-vfrm (AJOVY SYRINGE SUBCUTANEOUS) Inject 250 mg/mL subcutaneously. every 28 days for migraines Activefremanezumab-vfrm (AJOVY SYRINGE SUBCUTANEOUS) Inject 250 mg/mL subcutaneously. every 28 days for mi graines 0 Suspendedfremanezumab-vfrm (AJOVY SYRINGE SUBCUTANEOUS) Inject 250 mg/mL subcutaneously. every 28 days for migraines 0 ActiveComment on above: Inject 250 mg/mL subcutaneously. every 28 days for migrainesfurosemide 40 mg oral tablet (20 sources)Loop DiureticStart: 57-43-2114mufn 1 tablet by mouth once daily in the morningFurosemide 40 mg tablet Active 40 MG PO Every morning August 18, 2024 9:42am Complies with drugtherapyStart: 05-02-2024 End: 67-67-3906Fogpilhsmx 40 mg tablet Discontinued 0 .ROUTE .COMPLEX 90 3 May 02, 2024 2:19pm August 18, 2024 9:43am TAKE 1 TABLET DAILYStart: 11-11-2023 End: 33-33-8908Xvbmlvhxpx 40 mg tablet Discontinued 0 .ROUTE .COMPLEX 90 1 November 11, 2023 1:21pm December 10, 2023 12:38pm TAKE 1 TABLET DAILYStart: 05-29-2014 End: 85-96-6310mdal 1 tablet by mouth once dailyFurosemide 40 mg tablet Discontinued 40 MG PO Daily December 10, 2023 12:32pm May 02, 2024 2:21pm Comment on above:Take 40 mg by mouth once daily.Garcinia Cambogia-Chromium 500- 200 MG-MCG tablet (16 sources)Garcinia Cambogia-Chromium 500-200 MG-MCG tablet Take by mouth ActiveGreen Tea Capsule (10 sources)Start: 10-43-7991ndun 1 capsule by mouth once dailyGreen Tea Capsule Green Tea Capsule, 315 mg, Oral, Daily Start Date: 11/20/21 Status: Ordered Repeatnumber: 1Start: 93-75-7487jfms 1 capsule by mouth once dailyGreen Tea Capsule Green Tea Capsule, 315 mg, Oral, Daily Start Date: 11/20/21 Status: Ifbgika35 hr guaiFENesin 600 mg extended release oral tablet (1 source)Start: 10-07-2021 End: 26-48-6998xhcg 1 tablet by mouth every twelve hoursMucinex 600 mg Tab-ER 600 mg = 1 tab(s), Oral, q12hr, X 7 day(s), Refills(s) 0 Start Date: 10/07/21 S top Date: 10/14/21 Status: OrderedLactobacillus acidophilus (20 sources)take 1 capsule by mouth once dailyLACTOBACILLUS ACIDOPHILUS (PROBIOTIC ACIDOPHILUS ORAL) Take 1 capsule by mouth once daily. Active End: 63-75-3480Tptbizfycqglq acidophilus (PROBIOTIC ORAL) Take by mouth once daily. 100 million 08/07/2021 Discontinued (Course of therapy completed)take 1 capsule by mouth once dailyLACTOBACILLUS ACIDOPHILUS (PROBIOTIC ACIDOPHILUS ORAL) Take 1 capsule by mouth once daily. 0 Suspendedtake 1 capsule by mouth once dailyLACTOBACILLUS ACIDOPHILUS (PROBIOTIC ACIDOPHILUS ORAL) Take 1 capsule by mouth once daily. 0 ActiveComment on above:Take 1 capsule by mouth once daily. lactobacillus combination no.4 3 billion cell cap (20 sources)Start: 07-38-7785xrkaenmqosdtk combination no.4 3 billion cell cap Take 1 capsule by mouth once daily. 30 capsule 3 02/27/2022 ActiveStart: 02-27-2022 End: 06-15-4594rzwksxftxjdbe combination no.4 3 billion cell cap Take 1 capsule by mouth once daily. 30 capsule 3 02/27/2022 03/29/2022 ActiveComment on above: Take 1 capsule by mouth once daily.levoFLOXacin 500 mg oral tablet (6 sources)Quinolone AntimicrobialStart: 00-41-4652hvsv 1 tablet by mouth every twenty-four hourslevoFLOXacin 500 MG 1 tablet Orally Once a day for 10 days Apr, ActiveStart: 68-58-3391bupv 2 tablets by mouth once dailyLevaquin 250 MG 2 tablets Orally Once a day for 10 days Mar, Active3 ml liraglutide 6 mg/ml pen injector (10 sources)GLP-1 Receptor AgonistVictoza 18 MG/3ML Week one- 0.6mg daily, Week two thereafter- 1.2mg daily Subcutaneous Daily for 30days Please dispense brand and amt of pen needles allowed by insurance. Thanks. Cardiovascular riskfactor Z91.89, prediabetes R73.09, ActiveMagnesium (20 sources)Start: 50-00-5261rocy 2 tablets by mouth once daily at bedtime Magnesium 200 mg tablet Active 400 MG PO Daily at bedtime October 29, 2023 11:00pm Complies with drug therapyStart: 73-25-6281mhdl 2 tablets by mouth once daily at bedtimeMagnesium 200 mg tablet Active 400 MG PO Daily at bedtime October 30, 2023 12:00am Complies with drug therapyStart: 25-32-9192coul 2 tablets by mouth once daily at bedtimeStart: 91-88-9179hcsd 2 tablets by mouth once dailyMagnesium 200 mg tablet Active 400 MG PO Daily October 30, 2023 12:00amStart: 54-77-3491eyoo 2 tablets by mouth once dailyMagnesium 200 mg tablet Active 400 MG PO Daily October 29, 2023 11:00pmStart: 13-97-9701aalx 400 mg by mouth once dailyMagnesium Active 400 MG PO Daily October 29, 2023 11:00pmStart: 75-18-0858imuu 400 mg by mouth once dailyMagnesium Active 400 MG PO Daily October 30, 2023 12:00amtake 400 mg by mouth once dailyMAGNESIUM ORAL Take 400 mg by mouth once daily. Activetake 1 tablet by mouth once dailyMagnesium 400 MG Oral Tablet 1 TAB DAILY Quantity: 0 Refills: 0 Ordered: 24-Oct-2022 DO ActiveMagnesium 500mg 1 tablet at bedtime Activetake 1 capsule by mouth once dailytake 1 capsule by mouth once daily Magnesium 300 MG 1 capsule with a meal Orally Once a day Activetake 400 mg by mouth once dailyMAGNESIUM ORAL Take 400 mg by mouth once daily. 0 Suspendedtake 400 mg by mouth once dailyMAGNESIUM ORAL Take 400 mg by mouth once daily. 0 ActiveComment on above:Take 400 mg by mouth once daily. magnesium oxide 400 mg oral tablet (20 sources)Start: 47-00-4046tuvv 1 tablet by mouth once dailymagnesium oxide 400 mg Tab 400 mg = 1 tab(s), Oral, Daily, Refills(s) 0 Start Date: 09/24/21 Status:Ordered Repeat number: 1take 1 tablet by mouth once dailyMAGNESIUM OXIDE 400 PO Take 1 tablet by mouth Daily ActiveMEGA BIOTIN ORAL (3 sources)take 14656 ug by mouth once dailyMEGA BIOTIN ORAL Take 10,000 mcg by mouth once daily. Activetake 25163 ug by mouth once dailyMEGA BIOTIN ORAL Take 10,000 mcg by mouth once daily. 0 Activementhol 0.04 mg/mg topical gel (10 sources)Start: 86-96-7902Imtgaatxq 4% topical gel 1 beau, Topical, q6hr Other (see comment), Refill(s) 0 Start Date: 11/20/21 Status: Ordered Repeat number: 1 Start: 09-65-1019Fonogtojj 4% topical gel 1 beau, Topical, q6hr Other (see comment), Refill(s) 0 Start Date: 11/20/21 Status: Orderedmethocarbamol 500 mg oral tablet (20 sources)Muscle RelaxantStart: 55-50-1818dorq 1 tablet by mouth every eight hours as neededmethocarbamol (Robaxin) 500 MG tablet Take 500 mg by mouth every 8 (eight) hours if needed 05/18/2024 ActiveStart: 05-06-2024 End: 55-19-4740leij 1 tablet by mouth three times dailyMethocarbamol 500 mg tablet Discontinued 500 MG PO Three times daily May 06, 2024 12:00am Fatou garrett 2023 10:46amStart: 13-10-1118mslm 2 tablets by mouth three times dailyMethocarbamol 500 mg tablet Active 1000 MG PO Three times daily May 18, 2024 10:45am Complies with drug therapyStart: 09-09-2021 End: 74-61-1424wbmh 1 tablet by mouth every eight hours as neededmethocarbamol (ROBAXIN) 500 mg tablet Take 1 tablet by mouth three times daily as needed. 90 tablet0 09/09/2021 10/09/2021 ExpiredComment on above:Take 1 tablet by mouth three times daily as needed.methylPREDNISolone 4 mg tab dosepak (1 source)Start: 26-04-0471gutp 1 tablet by mouth oncemethylPREDNISolone 4 mg tab dosepak = 1 packet(s), Oral, Once, as directed on package labeling, X 6 day(s), # 21 tab(s) Start Date: 12/05/24 Status: Ordered Quantity: 21.0 Unit: tab(s) Repeat number: 124 hr metoprolol succinate 50 mg extended release oral tablet (20 sources)beta-Adrenergic BlockerStart: 69-94-2708plgf 1 tablet by mouth once daily in the morningMetoprolol Succinate 50 mg tablet extended release 24 hr Active 50 MG PO Every morning August 18, 2024 9:43am Complies with drug therapyStart: 05-02-2024 End: 51-48-0574Erjlhzdxhl Succinate 50 mg tablet extended release 24 hr Discontinued 0 .ROUTE .COMPLEX 90 May 02, 2024 2:20pm August 18, 2024 9:43am TAKE 1 TABLET DAILYStart: 05-02-2024 End: 07-30-2956Jngjliyxdi Succinate 50 mg tablet extended release 24 hr Discontinued 0 .ROUTE .COMPLEX 90 2023 3:20pm August 18, 2024 10:43am TAKE 1 TABLET DAILYStart: 05-02-2024 End: 20-73-2065Vjblfrayjj Succinate 50 mg tablet extended release 24 hr Discontinued 0 .ROUTE .COMPLEX 90 2023 2:20pm August 18, 2024 9:43am TAKE 1 TABLET DAILYStart: 19-26-6550Wtpxqfanwz Succinate 50 mg tablet extended release 24 hr Active 0 .ROUTE .COMPLEX May 02, 2024 2:20pm TAKE 1 TABLET DAILYStart: 72-44-4984Hlfzkknuxy Succinate Active 0 .ROUTE .COMPLEX May 02, 2024 2:20pm TAKE 1 TABLET DAILYStart: 11-03-2023 End: 98-34-4033Skjxjmwmff Succinate 50 mg tablet extended release 24 hr Discontinued 0 .ROUTE .COMPLEX 90 November 03, 2023 2:31pm December 10, 2023 12:38pm TAKE 1 TABLET DAILYStart: 11-03-2023 End: 45-34-1887Umynkegrjc Succinate 50 mg tablet extended release 24 hr Discontinued 0 .ROUTE .COMPLEX October 3:31pm December 10, 2023 1:38pm TAKE 1 TABLET DAILYStart: 11-03-2023 End: 21-24-2574Ndlemkpdjn Succinate 50 mg tablet extended release 24 hr Discontinued 0 .ROUTE .COMPLEX October 2:31pm December 10, 2023 12:38pm TAKE 1 TABLET DAILYStart: 11-03-2023 End: 07-14-3693Bodrccgshs Succinate Discontinued 0 .ROUTE .COMPLEX November 03, 2023 2:31pm December 10, 2023 12:38pmTAKE 1 TABLET DAILYStart: 11-03-2023 End: 59-92-2697Vxsnfcexmo Succinate Discontinued 0 .ROUTE .COMPLEX November 03, 2023 3:31pm December 10, 2023 1:38pm TAKE 1 TABLET DAILYStart: 11-03-2023 Metoprolol Succinate Active 0 .ROUTE .COMPLEX November 03, 2023 3:31pm TAKE 1 TABLET DAILYStart: 03-30-2017 End: 68-72-0959ifpd 1 tablet by mouth once daily in the morningMetoprolol Tartrate 50 mg Tablet Discontinued 50 MG PO Every morning March 29, 2017 11:00pm October 30, 2023 7:44amStart: 06-06-2014 End: 87-24-4848hzmk 1 tablet by mouth once dailyMetoprolol Succinate 50 mg tablet extended release 24 hr Discontinued 50 MG PO Daily December 10, 2023 12:33pm May 02, 2024 2:21pmComment on above:Take 50 mg by mouth once daily.Milk thistle extract (20 sources)Start: 82-95-1294ueqc 2 tablets by mouth once dailyMilk Thistle oral capsule 2 tab(s), Oral, Daily, Refill(s) 0 Start Date: 09/24/21 Status: Ordered Repeat number: 1Start: 01-74-4090vkos 2 tablets by mouth once dailyMilk Thistle oral capsule 2 tab(s), Oral, Daily, Refill(s) 0 Start Date: 09/24/21 Status: OrderedMilk Thistle 140 MG as directed Orally ActiveMiralax 17 gram packet (13 sources)Start: 98-26-5335zoin 17 g by mouth once daily as needed for constipationMiralax 17 gram packet 17 gram, Oral, Daily, PRN Constipation, # 527 gram, Refills(s) 0 Start Date:09/24/21 Status: Ordered Quantity: 527.0 Unit: g Repeat number: 1Start: 65-82-6523each 17 g by mouth once daily as needed for constipationMiralax 17 gram packet 17 gram, Oral, Daily, PRN Constipation, # 527 gram, Refills(s) 0 Start Date:09/24/21 Status: FgatasfGuyusmrb-Kiq-Xnwox-Vit K- Lycop (One-A-Day Men's Multivitamin) 400-300 mcg Tablet (20 sources)Start: 05-95-5121bbuu 1 tablet by mouth once daily in the evening Kdmleuvi-Txl-Ypbel-Vit K-Lycop (One-A-Day Men's Multivitamin) 400-300 mcg Tablet Active 1 TAB PO Every evening March 29, 2017 11:00pm Complies with drug therapyStart: 40-77-4721jznh 1 tablet by mouth once daily in the evening Aoavakih-Sgu-Ynjtm-Vit K-Lycop (One-A-Day Men's Multivitamin) 400-300 mcg Tablet Active 1 TAB PO Every evening March 30, 2017 12:00am Complies with drug therapyStart: 56-33-5828tegi 1 tablet by mouth once daily in the eveningStart: 70-29-5386nzwb 1 tablet by mouth once nlpfpMshnyafd-Krj-Tbniv-Vit K-Lycop (One-A-Day Men's Multivitamin) 400-300 mcg Tablet Active 1 TAB PO Daily March 29, 2017 11:00pmStart: 70-82-2208zurt 1 tablet by mouth once daily Wilbxskm-Pvs-Sqitr-Vit K-Lycop (One-A-Day Men's Multivitamin) 400-300 mcg Tablet Active 1 TAB PO Daily March 30, 2017 12:00ammultivitamin capsule (3 sources)take 1 capsule by mouth once dailymultivitamin capsule Take 1 capsule by mouth once daily. Activetake 1 capsule by mouth once dailymultivitamin capsule Take 1 capsule by mouth once daily. 0 ActiveMultivitamin preparation (20 sources)Multivitamin Activemupirocin 0.02 mg/mg topical ointment (5 sources)RNA Synthetase Inhibitor AntibacterialStart: 12-26-2021 End: 08-05-7720mvagadqte (BACTROBAN) 2 % ointment Apply 1/2 Bactroban ointment with a cotton swab to each nostrilin the morning and at bedtime starting 5 days prior to surgery. 22 g 0 12/26/2021 12/31/2021 SuspendedComment on above:Apply 1/2 Bactroban ointment with a cotton swab to each nostril in the morning and at bedtime starting 5 days prior to surgery.omega-3 fatty acids (FISH OIL CONCENTRATE ORAL) (3 sources)take 1 tablet by mouth once dailyomega-3 fatty acids (FISH OIL CONCENTRATE ORAL) Take 1 tablet by mouth once daily. Activetake 1 tablet by mouth once dailyomega-3 fatty acids (FISH OIL CONCENTRATE ORAL) Take 1 tablet by mouth once daily. 0 Activeomeprazole 40 mg delayed release oral capsule (20 sources)Proton Pump InhibitorStart: 48-04-3167qflhylwbwp Oral, Daily Start Date: 12/05/24 Status: Ordered Repeat number: 1Start: 08-18-2024 End: 15-82-9287Ydsvqgnvic 40 mg capsule,delayed release(DR/EC) Active 40 MG PO Every morning [facility] April 1:17pm TAKE 1 CAPSULE DAILY 30 MINUTES BEFORE MORNING MEAL Complies with drug therapyStart: 05-02-2024 End: 43-12-8458Pbqcgnjkgz 40 mg capsule,delayed release(DR/EC) Discontinued 0 .ROUTE .COMPLEX 90 May 02, 2024 2:20pm August 18, 2024 9:47am TAKE 1 CAPSULE DAILY 30 MINUTES BEFORE MORNING MEALStart: 15-51-8074Duxmydzipp Active 0 .ROUTE .COMPLEX May 02, 2024 2:20pm TAKE 1 CAPSULE DAILY 30 MINUTES BEFORE MORNING MEALStart: 12-10-2023 End: 67-63-5387Wycdvvkmqd 40 mg capsule,delayed release(DR/EC) Discontinued 40 MG PO .COMPLEX as needed November 12:34pm May 02, 2024 2:21pm 40 mg orally PRN;Start: 11-03-2023 End: 31-93-6152Pdtpxeecoe 40 mg capsule,delayed release(DR/EC) Discontinued 0 .ROUTE .COMPLEX 90 November 03, 2023 2:32pm December 10, 2023 12:38pm TAKE 1 CAPSULE DAILY 30 MINUTES BEFORE MORNING MEALStart: 11-03-2023 End: 11-39-9805Eauvbdkvdf Discontinued 0 .ROUTE .COMPLEX November 03, 2023 2:32pm December 10, 2023 12:38pm TAKE 1 CAPSULE DAILY 30 MINUTES BEFORE MORNING MEAL Start: 11-03-2023 End: 25-87-6935Kgsqikntkv Discontinued 0 .ROUTE .COMPLEX November 03, 2023 3:32pm December 10, 2023 1:38pm TAKE 1 CAPSULE DAILY 30 MINUTES BEFORE MORNING MEAL Start: 26-32-6576Fnpzzjiwde Active 0 .ROUTE .COMPLEX November 03, 2023 3:32pm TAKE 1 CAPSULE DAILY 30 MINUTES BEFORE MORNING MEALStart: 07-27-2021 End: 99-40-1074ufja 1 capsule by mouth once daily in the morningOmeprazole 40 mg capsule,delayed release(DR/EC) Discontinued 40 MG PO Every morning September 10, 2021 11:00pm November 03, 2023 2:32pmStart: 76-15-6950Doeskrwk 40 mg, Oral, Daily, Refills(s) 0, Control of stomach acid Start Date: 01/25/16 Status: Ordered Repeat number: 1Start: 01-25-2016 End: 32-40-0021iiwj 40 mg by mouth once dailyPrilosec 40 mg, Oral, Daily, Refills(s) 0, Control of stomach acid Start Date: 01/25/16 Status: OrderedComment on above:Take 40 mg by mouth once daily.One-A-Day (15 sources)Start: 31-53-0533xnly 1 tablet by mouth once daily at bedtime One-A-Day 1 tab(s), Oral, Bedtime, Refill(s) 0, Prophylaxis Start Date: 01/25/16 Status: Ordered Repeat number: 1Start: 12-20-9082axxl 1 tablet by mouth once daily at xgozlvyQzt-Q-Dbf 1 tab(s), Oral, Bedtime, Refill(s) 0, Prophylaxis Start Date: 01/25/16 Status: OrderedoxyCODONE hydrochloride 5 mg oral tablet (9 sources)Opioid AgonistStart: 01-06-2022 End: 87-93-4699gkrz 1 tablet by mouth every six hours as neededoxyCODONE IR (ROXICODONE) 5 mg immediate release tablet Indications: Spondylolisthesis of lumbar region , Lumbar stenosis with neurogenic claudication Take 1-2 tablets by mouth every 6 hours as needed for up to 7 days. 35 tablet 0 01/06/2022 01/13/2022 ActiveComment on above:Take 1-2 tablets by mouth every 6 hours as needed for up to 7 days.ozempic (2 mg/dose) 8 mg/3ml solution pen-injector (9 sources)inject 2 mg by subcutaneous injection every weekOzempic (2 MG/DOSE) 8 MG/3ML 2 mg Subcutaneous weekly Patient assistance. Activeinject 2 mg by subcutaneous injection every weekpolyethylene glycol 3350 40061 mg powder for oral solution (8 sources)Osmotic LaxativeStart: 34-96-2742svct 17 g by mouth once daily as needed for constipationMiralax 17 gram packet 17 gram, Oral, Daily, PRN Constipation, # 527 gram, Refills(s) 0 Start Date:09/24/21 Status: OrderedComment on above:Take 1 Packet by mouth once daily. Dissolve dose in 4 - 8 ounces of liquid and take as directed.microencapsulated potassium chloride 20 meq extended release oral tablet (20 sources)Start: 17-41-7938cnyj 1 tablet by mouth once daily at mealtime Potassium Chloride (Klor-Con M20) 20 mEq tablet,ER particles/crystals Active 20 MEQ PO Every morning August 18, 2024 9:45am TAKE 1 TABLET DAILY WITH FOOD Complies with drug therapyStart: 05-02-2024 End: 76-43-3606Ultyoekxl Chloride (Klor-Con M20) 20 mEq tablet,ER particles/crystals Discontinued 0 .ROUTE .COMPLEX 90 3 May 02, 2024 2:19pm August 18, 2024 9:47am TAKE 1 TABLET DAILY WITH FOODStart: 12-10-2023 End: 71-11-3524Pixfjjawt Chloride (Klor-Con M20) 20 mEq tablet,ER particles/crystals Discontinued 20 MEQ PO Daily December 10, 2023 12:34pm May 02, 2024 2:21pmStart: 11-24-2023 End: 91-36-2108Iwaxtupnc Chloride (Klor-Con M20) 20 mEq tablet,ER particles/crystals Discontinued 0 .ROUTE .COMPLEX 90 1 November 24, 2023 3:25pm December 10, 2023 12:38pm TAKE 1 TABLET DAILY WITH FOODStart: 75-42-7113mlwg 1 tablet by mouth three times dailyKlor-Con M20 20 MEQ Oral Tablet Extended Release TAKE 1 TABLET 3 TIMES DAILY. Quantity: 0 Refills: 0 Ordered: 22-Jan-2022 DO Start : 27-Jul-2021 ActiveStart: 03-29-8663Nrhm-Con M20 20 mEq, Oral, Daily, Refills(s) 0, Leg cramps Start Date: 01/25/16 Status: Ordered Repeat number: 1 Start: 59-77-9775Dkff-Con M20 20 mEq, Oral, Daily, Refills(s) 0, Leg cramps Start Date: 01/25/16 Status: OrderedStart: 03-27-2014 End: 82-87-5754xews 1 tablet by mouth once daily in the morningPotassium Chloride (Klor-Con M20) 20 mEq tablet,ER particles/crystals Discontinued 1 TAB PO Every morning March 29, 2017 11:00pm November 24, 2023 3:25pmComment on above:Take 20 mEq by mouth once daily.prasterone 50 mg oral capsule (20 sources)Start: 03-72-0932ates 1 tablet by mouth once dailyDHEA 50 mg oral capsule = 1 tab(s), Oral, Daily, Refills(s) 0 Start Date: 09/24/21 Status: Ordered End: 17-20-8754grly 1 tablet by mouth once dailyprasterone, dhea, (DHEA) 50 mg tab Take by mouth once daily. 11/27/2021 DiscontinuedComment on above:Take by mouth once daily.predniSONE 5 mg oral tablet (2 sources)Start: 46-84-7522mtsn 5 tablets by mouth once daily, then take 4 tablets by mouth once daily, then take 3 tablets bymouth once daily, then take 2 tablets by mouth once daily, then take 1 tablet by mouth once dailypredniSONE (Deltasone) 5 MG tablet Indications: Right shoulder pain, unspecified chronicity Take 5 tabs p.o. daily x3 days Take 4 tabs p.o. daily x3 days Take 3 tabs p.o. daily x3 days Take 2 tabs p.o. daily x3 days Take 1 tab p.o. daily x3 days 45 tablet 03/06/2025 ActiveStart: 09-91-2841ywgn 5 tablets by mouth once daily, then take 4 tablets by mouth once daily, then take 3 tablets bymouth once daily, then take 2 tablets by mouth once daily, then take 1 tablet by mouth once daily predniSONE (Deltasone) 5 MG tablet Indications: Right shoulder pain, unspecified chronicity Take 5 tabs p.o. daily x3 days Take 4 tabs p.o. daily x3 days Take 3 tabs p.o. daily x3 days Take 2 tabs p.o. daily x3 days Take 1 tab p.o. daily x3 days 45 tablet 03/06/2025 ActiveProbiotic (20 sources)Probiotic as directed ActiveSaccharomyces boulardii 10 billion cell capsule (2 sources)take 1 capsule by mouth once dailySaccharomyces boulardii 10 billion cell capsule Take 250 mg by mouth once daily. ActiveSelenium TR 200 mcg oral tablet (14 sources)Start: 47-12-1722gjri 1 tablet by mouth at bedtimeSelenium TR 200 mcg oral tablet = 1 tab(s), Oral, Bedtime, # 30 tab(s), Refills(s) 0 Start Date: 09/24/21 Status: Ordered Quantity: 30.0 Unit: tab(s) Repeat number: 1Start: 48-02-1643aqqw 1 tablet by mouth at bedtimeSelenium TR 200 mcg oral tablet = 1 tab(s), Oral, Bedtime, # 30 tab(s), Refills(s) 0 Start Date: 09/24/21 Status: OrderedStart: 08-39-7633bkaz 1 tablet by mouth once dailySelenium TR 200 mcg oral tablet = 1 tab(s), Oral, Daily, # 30 tab(s), Refills(s) 0 Start Date: Status: OrderedOzempic (1 source)Start: 53-67-2530Jpikrgl SubCutaneous, qWeek, Refill(s) 0 Start Date: 12/05/24 Status: Ordered Repeat number: 1Semaglutide (20 sources)Start: 25-98-9087lzuren 2 mg by subcutaneous injection every week Semaglutide (Ozempic) 2 mg/dose (8 mg/3 mL) pen injector Active 2 MG SUBCUT every week 3 2 December 19, 2024 9:25am weight loss Complies with drug therapy Start: 59-16-5867tdpczw 2 mg by subcutaneous injection every weekStart: 09-10-0607mulhrx 2 mg by subcutaneous injection every weekSemaglutide (Ozempic) 2 mg/dose (8 mg/3 mL) pen injector Active 2 MG SUBCUT every week 3 December 19, 2024 10:25am weight loss Complies with drug therapyStart: 08-74-5091pcfguh 2 mg by subcutaneous injection every weekSemaglutide (Ozempic) 2 mg/dose (8 mg/3 mL) pen injector Active 2 MG SUBCUT every week 3 November 10:25am Complies with drug therapyStart: 97-24-1341epkzgr 2 mg by subcutaneous injection every weekStart: 09-20-2024 End: 81-80-2284qzfpyr 2 mg by subcutaneous injection every weekSemaglutide (Ozempic) 2 mg/dose (8 mg/3 mL) pen injector Discontinued 2 MG SUBCUT every week 3 0 September 19, 2024 11:00pm December 19, 2024 9:26amStart: 09-20-2024 End: 75-19-3135rdhsdo 2 mg by subcutaneous injection every weekSemaglutide (Ozempic) 2 mg/dose (8 mg/3 mL) pen injector Discontinued 2 MG SUBCUT every week 3 September 20, 2024 12:00am December 19, 2024 10:26amStart: 09-20-2024 End: 34-74-4195hvxbgz 2 mg by subcutaneous injection every weekSemaglutide (Ozempic) 2 mg/dose (8 mg/3 mL) pen injector Discontinued 2 MG SUBCUT every week 3 September 20, 2024 12:00am December 19, 2024 10:26amStart: 10-30-2023 End: 16-87-4742jiirdi 2 mg by subcutaneous injection every weekSemaglutide (Ozempic) 2 mg/dose (8 mg/3 mL) pen injector Discontinued 2 MG SUBCUT every week October 29, 2023 11:00pm September 28, 2024 1:55pm ELVA PAPStart: 10-30-2023 End: 45-61-9565zoawwy 2 mg by subcutaneous injection every weekSemaglutide (Ozempic) 2 mg/dose (8 mg/3 mL) pen injector Discontinued 2 MG SUBCUT every week October 30, 2023 12:00am September 28, 2024 2:55pm ELVA PAPStart: 10-30-2023 End: 26-12-3412bkexoy 2 mg by subcutaneous injection every weekSemaglutide (Ozempic) 2 mg/dose (8 mg/3 mL) pen injector Discontinued 2 MG SUBCUT every week October 30, 2023 12:00am September 28, 2024 2:55pmStart: 09-30-2023 End: 97-29-3636sjasmr 2 mg by subcutaneous injection every weekSemaglutide (Ozempic) 2 mg/dose (8 mg/3 mL) pen injector Discontinued 2 MG SUBCUT every week September 29, 2023 11:00pm October 01, 2023 2:01pm FreeTextSi mg Subcutaneous weekly; Note: Source Status:TakingPatient assistance.; Provider: Eddi Guzman Start: 09-30-2023 End: 59-12-9637bqhipz 2 mg by subcutaneous injection every weekSemaglutide (Ozempic) 2 mg/dose (8 mg/3 mL) pen injector Discontinued 2 MG SUBCUT every week September 30, 2023 12:00am October 01, 2023 3:01pm FreeTextSi mg Subcutaneous weekly; Note: Source Status:TakingPatient assistance.; Provider: Eddi Guzman Semaglutide (Ozempic) 2 mg/dose (8 mg/3 mL) pen injector (20 sources)Start: 63-55-9318bkzolg 2 mg by subcutaneous injection every week Semaglutide (Ozempic) 2 mg/dose (8 mg/3 mL) pen injector Active 2 MG SUBCUT every week September 20, 2024 12:00amStart: 10-30-2023 End: 98-57-9729dgtvwt 2 mg by subcutaneous injection every weekSemaglutide (Ozempic) 2 mg/dose (8 mg/3 mL) pen injector Discontinued 2 MG SUBCUT every week October 30, 2023 12:00am September 28, 2024 2:55pmStart: 30-26-0990gxfqdb 2 mg by subcutaneous injection every weekSemaglutide (Ozempic) 2 mg/dose (8 mg/3 mL) pen injector Active 2 MG SUBCUT every week October 29, 2023 11:00pmStart: 10-30-2023 inject 2 mg by subcutaneous injection every weekSemaglutide (Ozempic) 2 mg/dose (8 mg/3 mL) pen injector Active 2 MG SUBCUT every week October 30, 2023 12:00am Start: 09-30-2023 End: 27-71-0742bwwoff 2 mg by subcutaneous injection every weekSemaglutide (Ozempic) 2 mg/dose (8 mg/3 mL) pen injector Discontinued 2 MG SUBCUT every week September 29, 2023 11:00pm October 01, 2023 2:01pm FreeTextSi mg Subcutaneous weekly; Note: Source Status:TakingPatient assistance.; Provider: Eddi Guzman Start: 09-30-2023 End: 32-11-0766annxhj 2 mg by subcutaneous injection every weekSemaglutide (Ozempic) 2 mg/dose (8 mg/3 mL) pen injector Discontinued 2 MG SUBCUT every week September 30, 2023 12:00am October 01, 2023 3:01pm FreeTextSi mg Subcutaneous weekly; Note: Source Status:TakingPatient assistance.; Provider: Eddi Guzman Start: 63-84-9707epnajc 2 mg by subcutaneous injection every weekSemaglutide (Ozempic) 2 mg/dose (8 mg/3 mL) pen injector Active 2 MG SUBCUT every week September 30, 2023 12:00am FreeTextSi mg Subcutaneous weekly; Note: Source Status: TakingPatient assistance.; Provider: Eddi García RSemaglutide (OZEMPIC, 2 MG/DOSE, SC) (20 sources)inject 2 mg by subcutaneous injection every weekSemaglutide (OZEMPIC, 2 MG/DOSE, SC) Inject 2 mg under the skin 1 (one) time per week Active semaglutide 2 mg/dose (8 mg/3 mL) pen injector (2 sources)inject 2 mg by subcutaneous injection every weeksemaglutide 2 mg/dose (8 mg/3 mL) pen injector Inject 2 mg under the skin 1 (one) time per week. Act ivesildenafil 50 mg oral tablet (20 sources)Phosphodiesterase 5 InhibitorStart: 98-45-8528cumz 1 tablet by mouth once daily as neededSildenafil 50 mg tablet Active 50 MG PO Daily as needed for sexual activity October 29, 2023 11:00pm FreeTextSi tablet as needed Orally Once a day; Note: Source Status: Taking; Provider: Bonifacio Garcia ( ) Complies with drug therapyStart: 09-23-2021 End: 54-30-1050Zuqrqam on above:Take 50 mg by mouth as needed.Syringe/Needle, Disp, (B-D 3CC LUER-JAZMIN SYR 97WK1-1/2) 23G X 1-1/2 3 ML misc (15 sources)Start: 40-36-1446Nilculc/Needle, Disp, (B-D 3CC LUER-JAZMIN SYR 23GX1- 1/2) 23G X 1-1/2 3 ML misc 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 1 Syringe every 14 (fourteen) days 6 each 1 09/05/2024 ActiveStart: 06-14-2024 Syringe/Needle, Disp, (B-D 3CC LUER-JAZMIN SYR 59KK6-1/2) 23G X 1-1/2 3 ML misc 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 1 Syringe every 14 (fourteen) days 6 each 1 06/14/2024 ActiveSyringe/Needle, Disp, (Luer Lock Safety Syringes) 22G X 1-1/2 3 ML misc (13 sources)Start: 06-08-2024 End: 05-31-3565Pbtcait/Needle, Disp, (Luer Lock Safety Syringes) 22G X 1-1/2 3 ML misc 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 1 Syringe every 14 (fourteen) days 6 each 1 06/08/2024 08/31/2024 ActiveStart: 04-11-2024 End: 69-32-5428Hoqagdd/Needle, Disp, (Luer Lock Safety Syringes) 22G X 1-1/2 3 ML misc 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 1 Syringe every 14 (fourteen) days 6 each 1 04/11/2024 07/04/2024 Activetelmisartan 80 mg oral tablet (20 sources)Angiotensin 2 Receptor BlockerStart: 34-23-0436dsom 1 tablet by mouth once daily in the morningTelmisartan 80 mg tablet Active 80 MG PO Every morning January 30, 2025 11:00pm TAKE 1 TABLET DAILYComplies with drug therapy Start: 01-23-2025 End: 19-08-4326Kkuwijlsbds 80 mg tablet Discontinued 0 .ROUTE .COMPLEX 90 1 January 23, 2025 2:44pm January 31, 2025 8:54am TAKE 1 TABLET DAILYStart: 01-29-2024 End: 58-50-7903Dzihhsepfdd 80 mg tablet Discontinued 0 .ROUTE .COMPLEX 90 January 29, 2024 8:47am July 9:47am TAKE 1 TABLET DAILYStart: 01-29-2024 End: 29-64-4043Asbtqqtmmrf 80 mg tablet Discontinued 0 .ROUTE .COMPLEX January 29, 2024 9:47am August 18, 2024 10:47am TAKE 1 TABLET DAILYStart: 01-29-2024 End: 90-00-4864Zwcxhpcrugu 80 mg tablet Discontinued 0 .ROUTE .COMPLEX January 29, 2024 8:47am August 18, 2024 9:47am TAKE 1 TABLET DAILYStart: 00-88-3233Eyizkmcalft 80 mg tablet Active 0 .ROUTE .COMPLEX January 29, 2024 8:47am TAKE 1 TABLET DAILYStart: 49-38-6965Ikqqhutdotm Active 0 .ROUTE .COMPLEX January 29, 2024 8:47am TAKE 1 TABLET DAILYStart: 65-34-9405Ehfypmexrji Active 0 .ROUTE .COMPLEX January 29, 2024 9:47am TAKE 1 TABLET DAILYStart: 03-30-2017 End: 24-50-2799qjfy 1 tablet by mouth once dailyTelmisartan 80 mg tablet Discontinued 80 MG PO Daily August 18, 2024 9:46am January 23, 2025 2:44pm Comment on above:Take 80 mg by mouth daily at bedtime. Take 80 mg by mouth once daily. Testost CYP 200 mg (5 sources)Start: 61-06-3355Ilxanro CYP 200 mg Testost CYP 200 mg, 300 mg, IntraMuscular, q2wk Start Date: 11/10/16 Status: OrderedStart: 05-03-6634Xybtrij CYP 200 mg Testost CYP 200 mg, 200 mg, IntraMuscular, q2wk Start Date: 11/10/16 Status: Ordered1 ml testosterone cypionate 200 mg/ml injection (20 sources)AndrogenStart: 33-30-0208udtvyg 200 mg by intramuscular injection every other weekTestosterone Cypionate 200 mg/mL oil Active 200 MG IM EVERY 2 WEEKS January 30, 2025 11:00pm Complies with drug therapyStart: 10-26-2024 End: 37-63-4380ymmlhzrixrey cypionate (Depo-Testosterone) 200 MG/ML injection 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 Inject 0.75 mL (150 mg) into the shoulder, thigh, or buttocks every 14 (fourteen) days 4.5 mL 12/05/2024 Discontinued (Reorder)Start: 09-05-2024 End: 41-62-2301nlgqgqebkesf cypionate (Depo-Testosterone) 200 MG/ML injection 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 Inject 2 mL (400 mg) into the shoulder, thigh, or buttocks every 14 (fourteen) days 12 mL 1 03/06/2025 08/21/2025 ActiveStart: 04-01-2024 End: 68-17-8862csrzflojfdrv cypionate (Depo-Testosterone) 200 MG/ML injection 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 Inject 2 mL (400 mg) into the shoulder, thigh, or buttocks every 14 (fourteen) days 12 mL 1 04/01/2024 ActiveStart: 32-34-2325Yxkwgshlybud Cypionate 200 MG/ML Intramuscular Solution ADMINISTER 1 AND 1/2 milliliters intramuscularly EVERY 2 WEEKS Quantity: 12 Refills: 0 Ordered: 05-Nov-2021 DO Start : 05-Nov-2021 ActiveStart: 64-57-5491CVRVCZWKNXTM Jan, 200 mgStart: 72-55-5541DJDKGUNXIYAD Apr, 150 mgStart: 10-33-9167UHVQEGHYOWGV Apr, .75 mLStart: 51-86-7996GGGKUQGLQURU Mar, 0.5 mLStart: 32-81-9086VRRFHRACTYOU Mar, 0.75 mLStart: 03-30-2017 End: 31-35-6059szfhvy 200 mg by intramuscular injection every other week Testosterone Cypionate 200 mg/mL Kit Discontinued 150 MG IM EVERY 2 WEEKS March 29, 2017 11:00pmAugust 2024 8:53amStart: 88-47-9481ztnkav 150 mg by intramuscular injection every other weekTestosterone Cypionate Active 150 MG IM EVERY 2 WEEKS March 29, 2017 11:00pmStart: 23-32-5519DYHDPTYYBVVK Feb, 75 mgStart: 08-47-5808IHENTZGCNGOV Feb, 150 mgStart: 02-24-2017 TESTOSTERONE Jan, 150 mgStart: 69-09-1172XCEQROCUNBEH Jan, 150 mgStart: 63-02-2540DVNBTNRMSTYP Jan, 0.75 mLStart: 01-13-2017 TESTOSTERONE Dec, 0.75 mLStart: 41-15-3221PYRQIVQOUIZT Nov, Start: 25-93-5967JGAEOICWJIQZ Nov, 150 mgStart: 11-18-4369ZBEJFPURTDCC October, 150 mgStart: 79-22-6801FTYNFEPDDWVQ October, 150 mgStart: 13-65-2753OUFFUPMMCVBU October, 150 mgStart: 01-56-6359NBPXGYIYGEEM Sep, 150 mgStart: 37-33-1922IXONLLVRUCSA Sep, 150 mgStart: 09-24-2016 inject 1.5 mL by intramuscular injection every other weekTestosterone Cypionate 200 MG/ML 1.5 ml Intramuscular q 2 weeks Aug, ActiveStart: 09-24-2016 inject 1.5 mL by intramuscular injection every other weektestosterone cypionate (Depo-Testosterone) 200 mg/mL injection Inject 1.5 mL (300 mg) into the muscle every 14 (fourteen) days. Active End: 30-31-7100olphjezkkqgq cypionate (Depo-Testosterone) 200 MG/ML injection Inject 300 mg into the shoulder, thigh, or buttocks every 14 (fourteen) days 04/01/2024 Discontinued (Reorder)Testosterone Cypionate 200 mg/mL intramuscular solution (10 sources)Start: 85-01-0328pynvgu 300 mg by intramuscular injection every other weekTestosterone Cypionate 200 mg/mL intramuscular solution 300 mg = 1.5 mL, IntraMuscular, q2wk, Refills(s) 0 Start Date: 11/20/21 Status: Ordered Repeat number: 1Start: 75-91-2806epdbwy 300 mg by intramuscular injection every other weekTestosterone Cypionate 200 mg/mL intramuscular solution 300 mg = 1.5 mL, IntraMuscular, q2wk, Refills(s) 0 Start Date: 11/20/21 Status: Orderedtopiramate 25 mg oral tablet (3 sources)Start: 67-36-7929fzqg 1 tablet by mouth once daily at bedtime Topiramate 25 mg tablet Active 25 MG PO Daily at bedtime 90 90 0 April 17, 2025 11:00pm Chronicmigraine without aura with status migrainosus, not intractable Chronic migraine without aura, not intractable, with status migrainosus Complies with drug therapyturmeric extract 500 mg oral capsule (14 sources)Start: 63-12-6750rfhc 1 capsule by mouth once dailyturmeric 500 mg oral capsule 500 mg = 1 cap(s), Oral, Daily, Refills(s) 0 Start Date: 09/24/21 Status: Ordered Repeat number: 1ubidecarenone 50 mg oral capsule (10 sources)Start: 27-03-3827uote 1 capsule by mouth once dailyelppa CoQ10 50 mg oral capsule 50 mg = 1 cap(s), Oral, Daily, # 30 cap(s), Refills(s) 0 Start Date:09/24/21 Status: Orderedtake 1 capsule by mouth every twenty-four hoursCoQ- 10 50 MG 1 capsule with a meal Orally Once a day ActivevalACYclovir 500 mg oral tablet (20 sources)Herpesvirus Nucleoside Analog DNA Polymerase Inhibitor, Herpes Simplex Virus Nucleoside Analog DNA Polymerase Inhibitor, Herpes Zoster Virus Nucleoside Analog DNA Polymerase InhibitorStart: 42-46-8292dmds 1 tablet by mouth once daily in the morningValacyclovir 500 mg tablet Active 500 MG PO Every morning August 18, 2024 9:46am Complies with drug therapyStart: 05-02-2024 End: 22-15-8301Xvghwqrnyxio 500 mg tablet Discontinued 0 .ROUTE .COMPLEX 90 May 02, 2024 2:20pm August 18, 2024 9:47am TAKE 1 TABLET DAILYStart: 05-02-2024 End: 66-10-0504Ndyaaigochpf 500 mg tablet Discontinued 0 .ROUTE .COMPLEX May 02, 2024 3:20pm August 18, 2024 10:47am TAKE 1 TABLET DAILYStart: 05-02-2024 End: 36-66-1341Homjqwswblbt 500 mg tablet Discontinued 0 .ROUTE .COMPLEX May 02, 2024 2:20pm August 18, 2024 9:47am TAKE 1 TABLET DAILYStart: 02-41-4894Ybwhvgeucvik 500 mg tablet Active 0 .ROUTE .COMPLEX May 02, 2024 2:20pm TAKE 1 TABLET DAILYStart: 01-07-3467Ggnsozwfrsrf Active 0 .ROUTE .COMPLEX May 02, 2024 2:20pm TAKE 1 TABLET DAILYStart: 11-11-2023 End: 02-08-2875Cjgstvikwgbm 500 mg tablet Discontinued 0 .ROUTE .COMPLEX 90 1 November 11, 2023 1:21pm December 10, 2023 12:38pm TAKE 1 TABLET DAILYStart: 77-62-2764zfiUBMjzwadk HCl - 500 MG Oral Tablet as needed Quantity: 0 Refills: 0 Ordered: 01-Aug-2021 DO Start: 27-Jul-2021 ActiveStart: 05-30-2014 End: 07-74-2654vhhh 1 tablet by mouth once dailyValacyclovir 500 mg tablet Discontinued 500 MG PO Daily December 10, 2023 12:35pm May 02, 2024 2:21pm Comment on above:Take 500 mg by mouth as needed. vancomycin 1.5 g/250 mL-NaCl 0.9% intravenous solution (4 sources)Start: 03-14-8924qynfbassrq 1.5 g/250 mL-NaCl 0.9% intravenous solution BID, Refills(s) 0 Start Date: 09/24/21 Status: OrderedVentolin HFA 90 mcg/inh Aerosol (1 source)Start: 68-70-4155mqve 2 puff(s) by inhalation four times dailyVentolin HFA 90 mcg/inh Aerosol 2 puff(s), Inhalation, QID Shortness of breath or wheezing, Refill(s) 0, Shortness of breath or wheezing Start Date: 04/26/19 Status: OrderedVitamin B Complex oral capsule (14 sources)Start: 59-78-8351Lbwodoq B Complex oral capsule 1 cap(s), Oral, Daily, 30 cap(s), Refill(s) 0 Start Date: 09/24/21 Status: Ordered Quantity: 30.0 Unit: cap(s) Repeat number: 1Start: 88-10-0102Ytfcwyn B Complex oral capsule 1 cap(s), Oral, Daily, 30 cap(s), Refill(s) 0 Start Date: 09/24/21 Status: Ordered vitamin b12 5 mg sublingual tablet (20 sources)Vitamin X69lcsm 1 tablet under the tongue once dailyCyanocobalamin (Vitamin B-12) [address] 1 tablet under the tongue Daily Activetake 1 tablet by mouth once dailycyanocobalamin (VITAMIN B-12) 1,000 mcg tab Indications: Stroke (HCC) , Headache Take 1,000 mcg by mouth once daily. ActiveComment on above:Take 1,000 mcg by mouth once daily. Vitamin C 500 mg Tab (15 sources)Start: 02-37-2038lxgw 1 tablet by mouth once dailyVitamin C 500 mg Tab 500 mg = 1 tab(s), Oral, Daily, Refills(s) 0, Prophylaxis Start Date: 12/22/17 Status: Ordered Repeat number: 1Start: 23-25-7024njxi 1 tablet by mouth once dailyVitamin C 500 mg Tab 500 mg = 1 tab(s), Oral, Daily, Refills(s) 0, Prophylaxis Start Date: 12/22/17 Status: OrderedVitamin D 125 MCG (5000 UT) (4 sources)Vitamin D 125 MCG (5000 UT) as directed Orally Activezolpidem tartrate 5 mg oral tablet (20 sources)gamma-Aminobutyric Acid-ergic AgonistStart: 97-29-7596leko 1 tablet by mouth once daily at bedtime as needed for sleepAmbien 5 mg Tab 5 mg = 1 tab(s), Oral, Once a day (at bedtime), PRN for sleep, # 30 tab(s), Refills(s) 0, Pharmacy: [facility] [place], 176.5, cm, 05/18/20 7:33:00 EST, Height/Length Dosing Start Date: 09/27/21 Status: Ordered Quantity: 30.0 Unit: tab(s) Repeat number: 1 Indications: Psychophysiologic insomnia;Start: 02-10-2017 End: 23-31-6575qtya 1 tablet by mouth at bedtime as neededZolpidem (Ambien Cr) 12.5 mg Tablet,Ext Release Multiphase Discontinued 12.5 MG PO Bedtime as needed for Insomnia March 29, 2017 11:00pm September 11, 2021 7:45pmComment on above: Take by mouth. Completed/Discontinued Medications MedicationDrug Class(es)DatesSig (Normalized)Sig (Original)acetaminophen 500 mg oral tablet (20 sources)Start: 05-03-2022 End: 41-66-2688pdti 2 tablets by mouth every six hours as needed for pain Acetaminophen 500 mg Tablet Discontinued 1000 MG PO Q6H as needed for Pain May 02, 2022 11:00pm Abdirahman 5th, 2022 8:48am On Hold: until taking hydrocodoneStart: 05-03-2022 End: 01-17-7861jaoh 1000 mg by mouth every six hoursAcetaminophen Discontinued 1000 MG PO Q6H May 02, 2022 11:00pm June 02, 2022 8:48amStart: 01-06-2022 End: 16-93-7368lmll 2 tablets by mouth every eight hours as neededacetaminophen (TYLENOL) 500 mg tablet Take 2 tablets by mouth every 8 hours as needed for pain. 21 tablet 0 01/06/2022 03/06/2022 Discontinuedtake 1 tablet by mouth every four hoursComment on above:Take 2 tablets by mouth every 8 hours as needed for pain.acetaminophen 325 mg / oxyCODONE hydrochloride 5 mg oral tablet (20 sources)Opioid AgonistStart: 02-07-2020 End: 69-16-6585agyi 1 tablet by mouth every six hours as needed for pain Oxycodone-Acetaminophen (Percocet) 5-325 mg tablet Discontinued 1 TAB PO Q6H as needed for pain 8 February 07, 2020 September 11, 2021 4:13pm Strain of muscle, fascia and tendon at neck level, initial encounteramitriptyline hydrochloride 25 mg oral tablet (4 sources)Tricyclic AntidepressantStart: 04-21-2017 End: 84-81-5779nyupeazebwugd (ELAVIL) 25 mg tablet once daily. 04/21/2017 08/18/2021 Discontinued End: 93-84-5923nnvlwvofoscgn (Elavil) 50 MG tablet Amitriptyline HCl 02/16/2024 Discontinued (Med list cleanup)anastrozole 1 mg oral tablet (20 sources)Aromatase InhibitorStart: 07-14-2018 End: 09-29-1171Gzrdgexcnla 1 mg Tablet Discontinued July 14, 2018 12:00am September 11, 2021 3:57pmStart: 07-14-2018 End: 31-15-5886Hchblmlvaql Discontinued TABLET July 14, 2018 12:00am September 11, 2021 3:57pm End: 17-40-5367DAEZPABMLBX ORAL Take by mouth. 08/07/2021 Discontinued (Course of therapy completed)aspirin 81 mg delayed release oral tablet (20 sources)Platelet Aggregation Inhibitor, Nonsteroidal Anti-inflammatory Drug Start: 05-06-2022 End: 02-17-4767mtmx 1 tablet by mouth once dailyAspirin 81 mg Tablet,Delayed Release (Dr/Ec) Discontinued 81 MG PO Daily May 062:00am October 30, 2023 7:29am End: 76-87-4406aoptszn 325 mg tablet Take 325 mg by mouth as needed. 08/20/2021 Discontinuedtake 1 tablet by mouth once dailytake 1 tablet by mouth once daily Aspirin 81 81 MG 1 tablet Orally Once a day Activetake 1 tablet by mouth once dailytake 1 tablet by mouth once dailyAspirin EC 325 MG 1 tablet Orally Once a day for 30 day(s) Activetake 1 tablet by mouth every twenty-four hoursAspirin EC 325 MG 1 tablet Orally Once a day for 30 day(s) ActiveAtogepant (20 sources)Start: 10-30-2023 End: 10-91-0820qujz 1 tablet by mouth once dailyAtogepant (Qulipta) 60 mg tablet Discontinued 60 MG PO Daily October 29, 2023 11:00pm December 10, 2023 12:27pmStart: 10-30-2023 End: 89-90-4725fjwt 1 tablet by mouth once dailyAtogepant (Qulipta) 60 mg tablet Discontinued 60 MG PO Daily October 30, 2023 12:00am December 10, 2023 1:27pmStart: 43-62-5787grzb 1 tablet by mouth once dailyAtogepant (Qulipta) 60 mg tablet Active 60 MG PO Daily October 30, 2023 12:00amatorvastatin 80 mg oral tablet (20 sources)HMG-CoA Reductase InhibitorStart: 01-25-2016 End: 42-88-2557gkbr 1 tablet by mouth once daily at bedtimeAtorvastatin 80 mg tablet Discontinued 1 TAB PO Daily at bedtime March 29, 2017 11:00pm September 30, 2023 4:45pmComment on above:Take 80 mg by mouth daily at bedtime. baclofen 20 mg oral tablet (20 sources)gamma-Aminobutyric Acid-ergic AgonistStart: 12-21-2023 End: 36-16-5683Ngvsvovo 20 mg tablet Discontinued 0 .ROUTE .COMPLEX 90 1 December 21, 2023 7:12am May 18, 2024 10:44am TAKE 1 TABLET DAILY NEEDED Start: 08-27-2013 End: 62-32-6984ygxv 1 tablet by mouth once dailyBaclofen 20 mg tablet Discontinued 20 MG PO Daily December 10, 2023 12:28pm December 21, 2023 7:13amStart: 08-27-2013 End: 76-77-0992ozxm 1 tablet by mouth twice dailybaclofen 20 mg Tab 20 mg = 1 tab(s), Oral, BID, Refills(s) 0, Other (see comment) Start Date: 08/27/13 Status: Ordered Repeat number: 1Comment on above:Take 20 mg by mouth daily at bedtime. Berb Sampson/herbal complex no.18 (BERBERINE-HERBAL COMB NO.18 ORAL) (8 sources) End: 28-36-0849rvnd 1000 mg by mouth once dailyBerb Sampson/herbal complex no.18 (BERBERINE-HERBAL COMB NO.18 ORAL) Take 1,000 mg by mouth once daily. 11/27/2021 Discontinuedtake 1000 mg by mouth once dailyBerb Sampson/herbal complex no.18 (BERBERINE-HERBAL COMB NO.18 ORAL) Take 1,000 mg by mouth once daily. 0 Active Comment on above:Take 1,000 mg by mouth once daily. Botox SOLR (1 source)Botox SOLR every 90 days Quantity: 0 Refills: 0 Ordered: 24-Oct-2022 DO Activeonabotulinumtoxina 200 unt injection (20 sources)Acetylcholine Release InhibitorStart: 12-20-2024 End: 66-55-9535uaftrr 200 [IU] by subcutaneous injection onceOnabotulinumtoxina (Botox) 200 unit recon soln Discontinued 200 UNIT SUBCUT Once 1 4 December 19, 2024 11:00pm January 31, 2025 8:49amStart: 08-03-2024 End: 53-02-4793mjkqplvimoudrkkgqU (Botox) injection 155 UnitsStart: 08-03-2024 End: 71-54-5856qybenj 155 [IU] by intramuscular injection orfl322 Units, Intramuscular, Once, On Thu08/03/24 at 1430, For 1 dose, Charging context for this clinic-administered medication: Medically Necessary/InsuranceStart: 06-02-2022 End: 89-30-6402Czeforgyqidhiwnftn (Botox) 100 unit Recon Soln Discontinued 0 .ROUTE .COMPLEX June 02, 2022 12:00am May 18, 2024 10:45am patient recieves injectios for migraine treatment every 3 months at neurology office onabotulinumtoxinA (BOTOX INJ) Every 90 days Active End: 54-46-4248hkilzyoykvhn toxin type A (BOTOX) 100 unit solr every 90 days for migraines 11/27/2021 DiscontinuedonabotulinumtoxinA (BOTOX INJ) Every 90 days 0 ActiveComment on above:every 90 days for migrainesbupivacaine hydrochloride 2.5 mg/ml injectable solution (6 sources)Amide Local AnestheticStart: 10-27-2024 End: 66-45-2686efwabwktbvk (Marcaine) 0.25 % injection 6 mLStart: 10-27-2024 End: mL, Injection, Once PRN Procedure, Starting on Thu10/27/24 at 1020, For 1 doseStart: 02-16-2024 End: 91-27-2003vnvhafxcign (Marcaine) 0.25 % injection 3 mLStart: 02-16-2024 End: mL, Injection, Once PRN Procedure, Starting on Thu02/16/24 at 0820, For 1 doseCALCITONIN,SALMON,SYNTHETIC (CALCITONIN, SALMON, NASAL) (1 source) End: 27-44-8792TOMTQLAWWW,SALMON,SYNTHETIC (CALCITONIN, SALMON, NASAL) Use in the nose once daily. 08/18/2021 Discontinuedcalcium carbonate 118 mg / prasterone 10 mg oral tablet (20 sources)Start: 07-14-2018 End: 76-46-1499vmdd 1 tablet by mouth once dailyPrasterone (Dhea)-Calcium Carb (Dhea) 10 mg-47 mg calcium Tablet Discontinued 10 TAB PO Daily July 14, 2018 12:00am October 30, 2023 7:49amcholecalciferol, vitamin D3, (VITAMIN D3 ORAL) (8 sources) End: 03-37-1925ptfh 125 ug by mouth once dailycholecalciferol, vitamin D3, (VITAMIN D3 ORAL) Take 125 mcg by mouth once daily. 11/27/2021 Discontinuedtake 125 ug by mouth once dailycholecalciferol, vitamin D3, (VITAMIN D3 ORAL) Take 125 mcg by mouth once daily. 0 ActiveComment on above:Take 125 mcg by mouth once daily.CHROM GREGORIO/BRINDAL MORRIS (GARCINIA CAMBOGIA ORAL) (1 source) End: 66-78-8871AEQMB GREGORIO/BRINDAL MORRIS (GARCINIA CAMBOGIA ORAL) Take by mouth once daily. 08/07/2021 Discontinued(Course of therapy completed)chromium picolinate 0.2 mg / gamboge 500 mg oral tablet (20 sources)Start: 03-30-2017 End: 30-15-3703udfl 200-500 tablets by mouth once dailyChromium-Brindal Morris (Garcinia Cambogia) 200-500 mcg-mg Tablet Discontinued 1 TAB PO Daily March 29, 2017 11:00pm May 03, 2022 2:13pmclindamycin 150 mg oral capsule (20 sources)Lincosamide AntibacterialStart: 09-03-2022 End: 69-34-9478kpyy 3 capsules by mouth every eight hoursClindamycin Hcl 150 mg capsule Discontinued 450 MG PO Q8H 63 7 0 September 03, 2022 12:00am August 19, 2023 12:02pmStart: 09-03-2022 End: 01-12-7623mfad 450 mg by mouth every eight hoursClindamycin Hcl Discontinued 450 MG PO Q8H 63 7 September 03, 2022 12:00am August 19, 2023 12:02pmStart: 02-27-2022 End: 19-15-2642fnxq 1 capsule by mouth three times dailyclindamycin (CLEOCIN) 150 mg capsule Take 1 capsule by mouth three times daily for 7 days. 21 capsule 0 02/27/2022 03/06/2022 ActiveStart: 01-06-2022 End: 37-65-1299rpam 3 capsules by mouth every eight hoursclindamycin (CLEOCIN) 300 mg capsule Take 3 capsules by mouth every 8 hours for 3 days. 27 capsule 0 01/06/2022 01/09/2022 ActiveComment on above:Take 3 capsules by mouth every 8 hours for 3 days.Take 1 capsule by mouth three times daily for 7 days.COMPOUNDED PRESCRIPTION (2 sources) End: 37-02-0377YGCXHYOBSO PRESCRIPTION Clor-Rite 100mg daily. 08/07/2021 Discontinued (Course of therapy completed) End: 15-51-3534HKNWKFKWGV PRESCRIPTION Hydroxycut once daily. 08/07/2021 Discontinued (Course of therapy completed)dicyclomine hydrochloride 20 mg oral tablet (20 sources)AnticholinergicStart: 59-90-8971mfff 1 tablet by mouth four times daily as neededdicyclomine 20 mg Tab 20 mg = 1 tab(s), Oral, QID, PRN cramps, Refills(s) 0, Indigestion Start Date: 08/11/17 Status: Ordered Repeat number: 1 Start: 08-18-2016 End: 53-76-9626awoe 1 tablet by mouth once daily in the morningDicyclomine 20 mg tablet Discontinued 20 MG PO Every morning July 14, 2018 12:00am December 10, 2023 12:38pmtake 2 capsules by mouth four times daily as neededdicyclomine (BENTYL) 10 mg capsule Take 20 mg by mouth as needed. 4 times daily as needed ActiveDicyclomine HCl 20 MG CAPS TAKE 1 CAPSULE 4 TIMES DAILY. Quantity: 0 Refills: 0 Ordered: 16-Jul-2022 DO ActiveComment on above:Take 20 mg by mouth as needed. 4 times daily as needed doxepin hydrochloride 10 mg oral capsule (20 sources)Tricyclic AntidepressantStart: 08-18-2024 End: 19-20-9812lses 1 capsule by mouth once daily at bedtimeDoxepin 10 mg capsule Discontinued 10 MG PO Daily at bedtime 90 October 21, 2024 12:22pm October 8:27amStart: 04-25-2024 End: 35-65-0127Mksskgk 10 mg capsule Discontinued 0 .ROUTE .COMPLEX 90 April 25, 2024 2:57pm August 18, 2024 9:41am TAKE 1 CAPSULE DAILY AT BEDTIME Start: 04-25-2024 End: 09-05-5522Xplieus 10 mg capsule Discontinued 0 .ROUTE .COMPLEX April 25, 2024 3:57pm August 18, 2024 10:41am TAKE 1 CAPSULE DAILY AT BEDTIME Start: 04-25-2024 End: 07-59-2074Hhcvfqa 10 mg capsule Discontinued 0 .ROUTE .COMPLEX April 25, 2024 2:57pm August 18, 2024 9:41am TAKE 1 CAPSULE DAILY AT BEDTIME Start: 30-92-9084Xrsjtuz 10 mg capsule Active 0 .ROUTE .COMPLEX Dori April 25, 2024 2:57pm TAKE 1 CAPSULE DAILY ATBEDTIMEStart: 19-31-7693Mtasdib Active 0 .ROUTE .COMPLEX April 25, 2024 2:57pm TAKE 1 CAPSULE DAILY AT BEDTIME Start: 12-10-2023 End: 20-50-1918rqnt 1 capsule by mouth once daily at bedtimeDoxepin 10 mg capsule Discontinued 10 MG PO Daily at bedtime December 10, 2023 12:31pm April 25, 2024 2:57pmStart: 10-08-2023 End: 34-17-5372Vesispu 10 mg capsule Discontinued 0 .ROUTE .COMPLEX Dori October 08, 2023 12:27pm December 10, 2023 12:38pm TAKE 1 CAPSULE DAILY AT BEDTIMEStart: 10-08-2023 End: 71-60-0504Oyuyjqh 10 mg capsule Discontinued 0 .ROUTE .COMPLEX October 08, 2023 1:27pm December 10, 2023 1:38pm TAKE 1 CAPSULE DAILY AT BEDTIMEStart: 10-08-2023 End: 01-36-7117Wyuugge 10 mg capsule Discontinued 0 .ROUTE .COMPLEX October 08, 2023 12:27pm December 10, 2023 12:38pm TAKE 1 CAPSULE DAILY AT BEDTIMEStart: 10-08-2023 End: 90-88-6166Deacrsl Discontinued 0 .ROUTE .COMPLEX October 08, 2023 12:27pm December 10, 2023 12:38pm TAKE 1 CAPSULE DAILY AT BEDTIMEStart: 10-08-2023 End: 01-80-5128Cdxjotq Discontinued 0 .ROUTE .COMPLEX October 08, 2023 1:27pm December 10, 2023 1:38pm TAKE 1 CAPSULE DAILY AT BEDTIMEStart: 77-57-5675Njzybkc Active 0 .ROUTE .COMPLEX October 08, 2023 1:27pm TAKE 1 CAPSULE DAILY AT BEDTIMEStart: 10-08-2023 End: 68-35-5705gkxe 1 capsule by mouth once daily at bedtimetake 2 tablets by mouth once daily at bedtimedoxepin capsule 10 mg Take 10 mg by mouth daily at bedtime. Takes 2 tabs at bedtime ActiveComment on above:Take 10 mg by mouth daily at bedtime. Takes 2 tabs at bedtime DULoxetine 30 mg delayed release oral capsule (20 sources)Serotonin and Norepinephrine Reuptake InhibitorStart: 12-19-2024 End: 86-55-6903zefg 1 capsule by mouth twice dailyDuloxetine 30 mg capsule,delayed release(DR/EC) Discontinued 30 MG PO Twice daily December 19, 2024 9:11am April 18, 2025 8:02amStart: 12-53-9335gewp 1 capsule by mouth twice dailyDuloxetine 60 mg capsule,delayed release(DR/EC) Active 60 MG PO Twice daily 180 90 1 February 20, 2025 10:07am Complies with drug therapyStart: 07-05-2024 End: 22-44-6504wjpm 1 capsule by mouth once dailyDuloxetine 60 mg capsule,delayed release(DR/EC) Discontinued 60 MG PO Daily 90 90 1 February 13, 2025 11:00pm February 20, 2025 10:07amStart: 10-30-2023 End: 92-87-0496bjzm 2 capsules by mouth once daily at bedtimeDuloxetine 30 mg capsule,delayed release(DR/EC) Discontinued 60 MG PO Daily at bedtime December 10, 2023 12:36pm December 19, 2024 9:14amStart: 10-30-2023 End: 60-02-9228puos 60 mg by mouth once daily at bedtimeDuloxetine Active 60 MG PO Daily at bedtime December 10, 2023 12:36pmStart: 10-21-2023 End: 15-23-3387parn 1 capsule by mouth in the morning, then take 1 capsule by mouth at bedtime, then take 1 capsule by mouth once dailyDULoxetine (Cymbalta) [address] capsule Indications: Lumbar radiculopathy Take 1 capsule (60 mg) by m outh in the morning and 1 capsule (60 mg) before bedtime. 1 cap daily , PO. 180 capsule 03/28/2024 06/26/2024 ActiveStart: 09-30-2023 End: 38-40-6781fgkb 1 capsule by mouth four times dailyDuloxetine 30 mg capsule,delayed release(DR/EC) Discontinued 30 MG PO Four times daily September 29, 2023 11:00pm October 30, 2023 7:45amStart: 66-01-8141zqjf 3 capsules by mouth once dailyduloxetine 30 mg Cap-DR 90 mg, Oral, Daily, Refills(s) 0 Start Date: 09/24/21 Status: OrderedStart: 03-30-2017 End: 48-02-9319Rsjtdnglja (Cymbalta) 60 mg Capsule,Delayed Release(Dr/Ec) Discontinued 30 MG PO Three times daily March 29, 2017 11:00pm October 30, 2023 7:33amStart: 46-82-1061Dzifgahdyo (Cymbalta) 60 mg Capsule,Delayed Release(Dr/Ec) Active 30 MG PO Daily March 29, 2017 11:00pmStart: 10-20-2014 take 1 capsule by mouth once dailyDULoxetine (CYMBALTA) 30 mg capsule Take 1 capsule by mouth once daily. Take with 60 mg for 90 mg total dose. 30 capsule 11 10/20/2014 Activetake 2 capsules by mouth twice dailyDULoxetine (Cymbalta) [address] capsule Take 2 capsules (60 mg) by mouth 2 times a day. Do not crushor chew. Activetake 2 capsules by mouth once dailyDULoxetine (Cymbalta) [address] capsule Take 2 capsules (60 mg) by mouth once daily. Do not crush orchew. 0 Activetake 1 capsule by mouth every six hoursDULoxetine HCl 30 MG 1 capsule Orally QID Activetake 1 capsule by mouth every eight hoursDULoxetine HCl 30 MG 1 capsule Orally TID ActiveComment on above:Take 1 capsule by mouth once daily. Take with 60 mg for 90 mg total dose.FIBER, PSYLLIUM HUSK, ORAL (1 source) End: 48-35-9709ZVKKA, PSYLLIUM HUSK, ORAL Take by mouth once daily. 08/07/2021 Discontinued (Course of therapy completed)Fish Oil OIL (1 source)Fish Oil OIL 1 TAB DAILY Quantity: 0 Refills: 0 Ordered: 24-Oct-2022 DO Activefluticasone propionate 0.05 mg/actuat metered dose nasal spray (20 sources)CorticosteroidStart: 01-30-2025 End: 63-21-0683hcun 2 spray(s) nasal route once dailyFluticasone Propionate 50 mcg/actuation spray,suspension Discontinued 0 .ROUTE .COMPLEX 48 3 2024 8:04am January 31, 2025 8:54am USE 2 SPRAYS IN EACH NOSTRIL ONCE DAILY Start: 08-18-2024 End: 72-23-8448fmqk 2 spray(s) nasal route once dailyFluticasone Propionate 50 mcg/actuation spray,suspension Active 2 SPRAY INTRANASAL Twice daily January 30, 2025 11:00pm USE 2 SPRAYS IN EACH NOSTRIL ONCE DAILY Complies with drug therapy Start: 02-01-2024 End: 34-38-6506ryey 2 spray(s) nasal route once dailyFluticasone Propionate 50 mcg/actuation spray,suspension Discontinued 0 .ROUTE .COMPLEX 48 3 2023 7:50am August 18, 2024 9:42am USE 2 SPRAYS IN EACH NOSTRIL ONCE DAILY Start: 18-08-9849xlfv 1 spray(s) nasal route once dailyFluticasone Propionate 50 MCG/ACT Nasal Suspension USE 1 SPRAY IN EACH NOSTRIL ONCE DAILY. Quantity: 0 Refills: 0 Ordered: 07-Jun-2022 DO Start : 15-Apr-2022 ActiveStart: 03-30-2017 End: 15-32-0386Gplfgchwykx Propionate (Flonase Allergy Relief) 50 mcg/actuation [place],Suspension Discontinued 2 SPRAY INTRANASAL Twice daily March 29, 2017 11:00pm February 01, 2024 7:51amStart: 78-28-6085Yobisobveau Propionate (Flonase Allergy Relief) 50 mcg/actuation [place],Suspension Active 2 SPRAY INTRANASAL Daily March 29, 2017 11:00pmStart: 85-28-8274tsqycyitbop Nasal 0.05 mg/inh [place] 2 spray(s), Nasal, BID, Refill(s) 0, Sinus symptoms Start Date: 08/27/13 Status: Ordered Repeat number: 1take 2 spray(s) nasal route once daily fluticasone (Flonase) 50 MCG/ACT nasal spray Administer 2 sprays into each nostril Daily Shake gently. Before first use, prime pump. After use, clean tip and replace cap. Activetake 2 spray(s) nasal route twice dailyfluticasone (FLONASE) 50 mcg/actuation nasal spray Indications: Stroke (HCC) , Headache Use 2 Sprays in each nostril twice daily. ActiveFluticasone Propionate 50 MCG/ACT USE 2 SPRAYS IN EACH NOSTRIL ONCE DAILY Nasally Once a day for 90days Active Comment on above:Use 2 Sprays in each nostril twice daily. fluticasone Nasal 0.05 mg/inh [place] (6 sources)Start: 20-91-3551uzxggkqfche Nasal 0.05 mg/inh [place] 2 spray(s), Nasal, BID, Refill(s) 0, Sinus symptoms Start Date: 08/27/13 Status: Ordered gabapentin 600 mg oral tablet (20 sources)Anti-epileptic AgentStart: 03-30-2017 End: 46-22-8059Dvwkaeqcze (Neurontin) 600 mg Tablet Discontinued 600 MG PO 1 to 2 times per day March 29, 2017 11:00pm September 11, 2021 6:14pmStart: 12-12-2016 End: 34-05-3985Psimpxjbb 600 MG 1 tablet Orally Three times a day. NIGHTTIME A HALF Nov, Active End: 79-30-7758rmdmwbhaqe (NEURONTIN) 100 mg capsule Take 600 mg by mouth daily at bedtime. 08/07/2021 Discontinued (Course of therapy completed)hydrOXYzine hydrochloride 25 mg oral tablet (1 source)Antihistamine End: 66-00-9850kuzp 1 tablet by mouth every eight hours as neededhydrOXYzine HCl (ATARAX) 25 mg tablet Take 25 mg by mouth three times daily as needed. 08/07/2021 Discontinued (Course of therapy completed)ibuprofen 800 mg oral tablet (20 sources)Nonsteroidal Anti-inflammatory DrugStart: 05-03-2022 End: 48-43-3022utfj 1 tablet by mouth three times dailyIbuprofen 800 mg Tablet Discontinued 800 MG PO Three times daily May 02, 2022 11:00pm May 06, 2022 2:56pmStart: 04-14-2022 End: 25-44-3734ihxo 1 tablet by mouth every eight hours as neededibuprofen (MOTRIN) 800 mg tablet Take 1 tablet by mouth every 8 hours as needed for pain. 200 tablet 0 04/14/2022 07/13/2022 ActiveStart: 07-14-2018 End: 15-62-9782syca 1 tablet by mouth three times daily as needed for pain Ibuprofen 800 mg Tablet Discontinued 800 MG PO Three times daily as needed for Pain July 14, 2018 12:00am September 11, 2021 4:10pmComment on above:Take 1 tablet by mouth every 8 hours as needed for pain.24 hr isosorbide mononitrate 30 mg extended release oral tablet (20 sources)Nitrate VasodilatorStart: 10-30-2023 End: 83-66-3414sosr 1 tablet by mouth every twenty-four hoursIsosorbide Mononitrate 30 mg tablet extended release 24 hr Discontinued MG PO October 29, 2023 11:00pmJun2023 12:38pm FreeTextSig: Oral; Note: Source Status: Taking; Qty: 90 Tablet; Provider: Vikramt: 07-16-2022 End: 18-64-7133mhyt 1 tablet by mouth once daily, then take 1 tablet by mouth every twenty-four hoursIsosorbide Mononitrate 30 mg tablet extended release 24 hr Discontinued 30 MG PO Daily 30 30 0 November 02, 2024 8:26am January 31, 2025 8:54amlevomefolate (20 sources)Start: 07-14-2018 End: 60-86-4686Xwqptkcvsbxd Calcium 7.5 mg Tablet Discontinued July 14, 2018 12:00am September 11, 2021 4:11pmStart: 07-14-2018 End: 04-45-5376Xnckrtgjdhgv Calcium 7.5 mg Tablet Discontinued July 14, 2018 1:00am September 11, 2021 5:11pmStart: 07-14-2018 End: 49-26-8736Rkebxtmfiutz Calcium 7.5 mg Tablet Discontinued TABLET July 14, 2018 1:00am September 11, 2021 5:11pmStart: 07-14-2018 End: 01-03-1354Ljvsfgjkrkwh Calcium 7.5 mg Tablet Discontinued TABLET July 14, 2018 12:00am September 11, 2021 4:11pmStart: 07-14-2018 End: 68-70-5979Pxququglprjt Calcium Discontinued TABLET July 14, 2018 12:00am September 11, 2021 4:11pmStart: 07-14-2018 End: 12-77-4103Bkbixhxsktpu Calcium Discontinued TABLET July 14, 2018 1:00am September 11, 2021 5:11pmmethylPREDNISolone (20 sources)CorticosteroidStart: 02-09-2025 End: 13-47-3221cwzljiYCXRAXQinjfe (MEDROL, JOAQUÍN,) 4 mg Dose-Pack As instructed per package 21 tablet 02/09/2025 02/15/2025 ExpiredStart: 02-09-2025 End: 49-07-4641zmhtkyQRYTJYPvlejq (MEDROL, JOAQUÍN,) 4 mg Dose-Pack As instructed per package 21 tablet 02/09/2025 02/15/2025 ActiveStart: 11-30-2024 End: 22-16-9653lblzblDREWVMRtrtvm (MEDROL DOSE-PACK) 4 mg Dose-Pack Indications: Lumbar radiculopathy Take as instructed per package. 21 tablet 11/30/2024 12/06/2024 ActiveStart: 07-20-2024 End: 82-52-6090vzzxtpNSUPIXCnerhe (MEDROL DOSE-PACK) 4 mg Dose-Pack As Instructed per package 21 tablet DiscontinuedStart: 97-60-0104uxsajrAPYJZRJxneiv (MEDROL DOSE-PACK) 4 mg Dose-Pack As Instructed per package 21 tablet 07/20/2024tiveStart: 02-16-2024 End: 48-35-9774txapxcSFAPUZAmbybr Na Suc (PF) reconstituted solution 40 mgStart: 02-16-2024 End: 60-02-668302 mg, Injection, Once PRN Procedure, Starting on Thu02/16/24 at 0820, For 1 doseStart: 13-48-2320apstrpXLISKENnbqmp 4 MG as directed Orally As directed for 6 days Jul, ActiveStart: 76-37-0086xmgyxvSZTUQYAlclwy 4 MG as directed Orally As directed for 6 days Mar, ActiveStart: 09-24-2022 Medrol (Joaquín) 4 MG as directed Orally as directed for 6 days Aug, Active Start: 07-03-2022 End: 30-76-1065wjisjvWJJVOHCpzvwi (MEDROL DOSE-PACK) 4 mg Dose-Pack As Instructed per package 21 tablet / DiscontinuedStart: 26-18-8420nkmnamDUQOVEXjmzvy (MEDROL DOSE-PACK) 4 mg Dose-Pack As Instructed per package 21 tablet 07/03/2022ctiveStart: 60-84-7087pgimszJMSXQEAlczyf (MEDROL DOSE-PACK) 4 mg Dose-Pack As Instructed per package 21 tablet 0 07/03/2022 ActiveStart: 04-21-2022 End: 26-88-7268veeegdLOCEDUXpflcg (MEDROL DOSE-PACK) 4 mg Dose-Pack As Instructed per package 21 tablet 0 04/21/2022 07/03/2022 DiscontinuedStart: 09-25-8916jvqzdrHTTNWCQagjmi (MEDROL DOSE-PACK) 4 mg Dose-Pack As Instructed per package 21 tablet 0 04/21/2022 ActiveComment on above:As Instructed per package mirtazapine 30 mg oral tablet (20 sources)Start: 09-11-2021 End: 24-43-5119kwpw 1 tablet by mouth once dailyMirtazapine 30 mg tablet Discontinued 30 MG PO Daily September 10, 2021 11:00pm June 02, 2022 8:51am take 2 tablets by mouth every twenty-four hoursMirtazapine 15 MG 2 tablet at bedtime Orally Once a day for 30 day(s) Activemorphine sulfate 15 mg oral tablet (20 sources)Opioid AgonistStart: 09-03-2022 End: 47-34-3795rgew 7.5 mg by mouth every six hours as needed for painMorphine 15 mg tablet Discontinued 7.5 MG PO Q6H as needed for pain 4 3 0 September 03, 2022 August 19, 2023 12:04pm Cellulitis Cellulitis, unspecifiedStart: 09-03-2022 End: 31-03-3688knzu 7.5 mg by mouth every six hoursMorphine Discontinued 7.5 MG PO Q6H 4 3 September 03, 2022 August 19, 2023 12:04pmMulti Vitamin TABS (1 source)Multi Vitamin TABS TAKE 1 TABLET DAILY. Quantity: 0 Refills: 0 Ordered: 24-Oct-2022 DO ActiveMULTIVITS-MINERALS/FA/LYCOPENE (ONE-A-DAY MEN'S ORAL) (8 sources) End: 51-64-1700CTXSIGOHZ-MINERALS/FA/LYCOPENE (ONE-A-DAY MEN'S ORAL) Take by mouth. 11/27/2021 DiscontinuedMULTIVITS-MINERALS/FA/LYCOPENE (ONE-A-DAY MEN'S ORAL) Take by mouth. 0 ActiveComment on above:Take by mouth. nitroglycerin 0.4 mg sublingual tablet (20 sources)Nitrate VasodilatorStart: 10-30-2023 End: 50-78-5492Fzjflfxfnlnsl 0.4 mg tablet, sublingual Discontinued 0.4 MG SUBLINGUAL Q5M as needed for chest painMay 2023 11:00pm February 02, 2025 11:34am FreeTextSig: Sublingual; Note: Source Status: Taking; Qty: 25 Tablet; Provider: Vikramt: 66-98-8984Rwcjmrjhggvbe Active MG SUBLINGUAL October 29, 2023 11:00pm FreeTextSig: Sublingual; Note: Source Status: Taking; Qty: 25 Tablet; Provider: Vikramt: 46-67-0837Kzehyvuqkukdh 0.4 MG Sublingual Tablet Sublingual TAKE DIRECTED. Quantity: 25 Refills: 11 Ordered: 16-Jul-2022 Danisha Bran MD Start : 16-Jul-2022 Activenitroglycerin (Nitrostat) 0.4 mg SL tablet Take as directed 0 Activenortriptyline 50 mg oral capsule (20 sources)Tricyclic AntidepressantStart: 04-26-2019 End: 33-12-7839oahy 1 capsule by mouth once daily at bedtimeNortriptyline 50 mg capsule Discontinued 50 MG PO Daily at bedtime September 10, 2021 11:00pm [facility] 11:34amComment on above:Take 50 mg by mouth daily at bedtime.[place] 7-Nhd-Yvp-Fish Oil (Fish Oil) 1,000 mg (120 mg-180 mg) Capsule (20 sources)Start: 07-14-2018 End: 52-06-3280Lvhny 7-Lgj-Qkd-Fish Oil (Fish Oil) 1,000 mg (120 mg-180 mg) Capsule Discontinued July 14, 2018 12:00am September 11, 2021 4:13pmStart: 07-14-2018 End: 53-92-2763Mpbou 0-Rjz-Wwz-Fish Oil (Fish Oil) 1,000 mg (120 mg-180 mg) Capsule Discontinued July 14, 2018 1:00am September 11, 2021 5:13pmOmega-3 Fatty Acids-Vitamin E (FISH OIL) 1,000 mg cap (1 source) End: 96-54-5009Pqsnn-3 Fatty Acids-Vitamin E (FISH OIL) 1,000 mg cap Take 1 capsule by mouth. 08/07/2021 Discontinued (Course of therapy completed) Omeprazole 40 mg capsule,delayed release(DR/EC) (20 sources)Start: 05-02-2024 End: 11-09-2439Cjebfkampq 40 mg capsule,delayed release(DR/EC) Discontinued 0 .ROUTE .[facility] May 02, 2024 3:20pm August 18, 2024 10:47am TAKE 1 CAPSULE DAILY 30 MINUTES BEFORE MORNING MEALStart: 05-02-2024 End: 76-99-7888Svcoqpcsvl 40 mg capsule,delayed release(DR/EC) Discontinued 0 .ROUTE .[facility] May 02, 2024 2:20pm August 18, 2024 9:47am TAKE 1 CAPSULE DAILY 30 MINUTES BEFORE MORNING MEALStart: 06-90-3574Etgraiyadr 40 mg capsule,delayed release(DR/EC) Active 0 .ROUTE .[facility] May 02, 2024 2:20pm TAKE 1 CAPSULE DAILY 30 MINUTES BEFORE MORNING MEALStart: 11-03-2023 End: 51-27-1864Ppjmfndbah 40 mg capsule,delayed release(DR/EC) Discontinued 0 .ROUTE .[facility] November 03, 2023 3:32pm December 10, 2023 1:38pm TAKE 1 CAPSULE DAILY 30 MINUTES BEFORE MORNING MEALStart: 11-03-2023 End: 35-78-3085Rxdrrtkstp 40 mg capsule,delayed release(DR/EC) Discontinued 0 .ROUTE .[facility] November 03, 2023 2:32pm December 10, 2023 12:38pm TAKE 1 CAPSULE DAILY 30 MINUTES BEFORE MORNING MEALOTC NUTRITIONAL SUPPLEMENT (16 sources) End: 95-92-5900EPD NUTRITIONAL SUPPLEMENT once daily. Tumeric 500 mg x2 11/27/2021 Discontinued End: 36-77-2579WJO NUTRITIONAL SUPPLEMENT 500 mg once daily. Curcumin 11/27/2021 DiscontinuedOTC NUTRITIONAL SUPPLEMENT once daily. Tumeric 500 mg x2 0 Active OTC NUTRITIONAL SUPPLEMENT 500 mg once daily. Curcumin 0 ActiveComment on above: once daily. Tumeric 500 mg x2500 mg once daily. CurcuminOTC PRODUCT (18 sources) End: 55-00-8081CIG PRODUCT once daily. Tinnitus 911 : 1 tab 08/07/2021 Discontinued (Course of therapy completed) End: 98-34-6157LIU PRODUCT once daily. Leptitox : 2 tabs 09/16/2021 Discontinued (Discontinued by Patient) End: 00-15-9752WKF PRODUCT 350 mg once daily. Milk thistle 11/27/2021 Discontinued End: 65-61-1587BSH PRODUCT 315 mg daily at bedtime. Green Tea 11/27/2021 DiscontinuedOTC PRODUCT 350 mg once daily. Milk thistle 0 ActiveOTC PRODUCT 315 mg daily at bedtime. Green Tea 0 ActiveComment on above:350 mg once daily. Milk mg daily at bedtime. Green Tea PEPPERMINT OIL (IBGARD ORAL) (1 source) End: 30-17-8348IEIYVLYBQD OIL (IBGARD ORAL) Take by mouth. 08/07/2021 Discontinued (Course of therapy completed)phentermine hydrochloride 37.5 mg oral capsule (1 source)Sympathomimetic Amine Anorectic End: 24-78-1475dupb 1 capsule by mouth once dailyPhentermine HCl 37.5 mg capsule Take 37.5 mg by mouth once daily. 09/12/2021 Discontinued (Patient chooses alternative therapy)Potassium Chloride (Klor-Con M20) 20 mEq tablet,ER particles/crystals (20 sources)Start: 05-02-2024 End: 80-49-1485Ajsfoaeux Chloride (Klor-Con M20) 20 mEq tablet,ER particles/crystals Discontinued 0 .ROUTE .[facility] May 02, 2024 3:19pm August 18, 2024 10:47am TAKE 1 TABLET DAILY WITH FOODStart: 05-02-2024 End: 00-63-1532Taunswqoy Chloride (Klor-Con M20) 20 mEq tablet,ER particles/crystals Discontinued 0 .ROUTE .COMPLEX May 02, 2024 2:19pm August 18, 2024 9:47am TAKE 1 TABLET DAILY WITH FOODStart: 05-02-2024 Potassium Chloride (Klor-Con M20) 20 mEq tablet,ER particles/crystals Active 0 .ROUTE .COMPLEX 90 May 02, 2024 2:19pm TAKE 1 TABLET DAILY WITH FOODStart: 11-24-2023 End: 12-60-6459Jxnbwndef Chloride (Klor-Con M20) 20 mEq tablet,ER particles/crystals Discontinued 0 .ROUTE .COMPLEX 90 November 24, 2023 3:25pm December 10, 2023 12:38pm TAKE 1 TABLET DAILY WITH FOODStart: 11-24-2023 End: 24-30-0978Idpjnetzd Chloride (Klor-Con M20) 20 mEq tablet,ER particles/crystals Discontinued 0 .ROUTE .COMPLEX 90 November 24, 2023 4:25pm December 10, 2023 1:38pm TAKE 1 TABLET DAILY WITH FOODStart: 91-09-5844Flpsmyyus Chloride (Klor-Con M20) 20 mEq tablet,ER particles/crystals Active 0 .ROUTE .COMPLEX 90 November 24, 2023 4:25pm TAKE 1 TABLET DAILY WITH FOODpregabalin 200 mg oral capsule (20 sources)Start: 12-04-2021 End: 30-24-6370hhez 1 capsule by mouth three times dailyPregabalin 200 mg capsule Discontinued 200 MG PO Three times daily 270 90 0 April 18, 2025 6:27pm April 24, 2025 10:41am Lumbar radicular syndrome Radiculopathy, lumbar regionStart: 09-22-2021 End: 85-30-6670txcm 1 capsule by mouth twice dailyLyrica 200 mg Cap 200 mg = 1 cap(s), Oral, BID, Refills(s) 0 Start Date: 09/24/21 Status: Ordered Repeat number: 1Start: 09-11-2021 End: 50-09-1638Fflpbmuktc 100 mg capsule Discontinued 200 MG PO Daily at 0730, 1530, 2330 September 10, 2021 11:00pmMa2023 7:37amStart: 20-19-3204zyut 100 mg by mouth once dailyPregabalin Active 100 MG PO Daily September 10, 2021 11:00pmStart: 09-11-2021 End: 65-82-7286Hxppucdgvt Discontinued 200 MG PO Daily at 0730, 1530, 2330 September 10, 2021 11:00pm October 30, 2023 7:37amtake 2 capsules by mouth once daily at bedtimeLyrica 300 MG 2 capsule 1 to 3 hours before bedtime Orally Once a day Activetake 1 capsule by mouth once daily at bedtimeLyrica 300 MG 1 capsule 1 to 3 hours before bedtime Orally Once a day Activetake 1 capsule by mouth once daily at bedtimeLyrica 200 MG 1 capsule 1 to 3 hours before bedtime Orally Once a day ActiveComment on above:Take 1 capsule by mouth twice daily for 30 days. Take 1 capsule by mouth three times daily for 90 days.promethazine hydrochloride 25 mg oral tablet (20 sources)PhenothiazineStart: 04-20-7286xgag 1 tablet by mouth three times daily as neededPromethazine HCl - 25 MG Oral Tablet TAKE 1 TABLET 3 TIMES DAILY NEEDED. Quantity: 0 Refills: 0 Ordered: 27-May-2022 DO Start : 23-Apr-2022 ActiveStart: 07-14-2018 End: 22-42-7600Vdumwkqjdobm 12.5 mg Tablet Discontinued 12.5 MG PO .as needed as needed for nausea and vomiting July 14, 2018 12:00am October 30, 2023 7:52am Start: 25-42-1262jdqw 25 mg by mouth once dailyPromethazine Active 25 MG PO Daily July 14, 2018 12:00amStart: 58-11-3216hehp 25 mg by mouth twice daily Promethazine Active 25 MG PO Twice daily July 14, 2018 12:00amStart: 01-25-2016 End: 10-20-4025ytss 1 tablet by mouth every six hours as needed for nausea Promethazine 25 mg tablet Discontinued 25 MG PO as needed October 29, 2023 11:00pm November 03, 2023 2:32pm FreeTextSi tablet as needed nausea Orally every 6 hrs; Note: Source Status: Taking; Refills: 1; Qty: 90 Tablet; Provider: Bonifacio Prieto Start: 68-47-9608oalj 25 mg by mouth once daily as needed for nauseapromethazine 25 mg, Oral, Daily, PRN as needed for nausea/vomiting, Refills(s) 0, Nausea/Vomiting Start Date: 01/25/16 Status: Ordered End: 55-30-5306dmvfehgtfazu (PHENERGAN) 25 mg tablet Take 25 mg by mouth as needed. 11/27/2021 DiscontinuedComment on above:Take 25 mg by mouth as needed. psyllium 400 mg oral capsule (20 sources)Start: 03-30-2017 End: 07-79-1009Lwrtbjkh Husk (Fiber (Psyllium Husk)) 0.4 gram Capsule Discontinued 1 TAB PO Daily March 29, 2017 11:00pm September 11, 2021 7:40pm PSYLLIUM PO Take by mouth ActivePsyllium Husk (Fiber (Psyllium Husk)) 0.4 gram Capsule (20 sources)Start: 03-30-2017 End: 56-75-9948Aawovuwe Husk (Fiber (Psyllium Husk)) 0.4 gram Capsule Discontinued 1 TAB PO Daily March 29, 2017 11:00pm September 11, 2021 7:40pm Start: 03-30-2017 End: 67-46-2644Wggietfh Husk (Fiber (Psyllium Husk)) 0.4 gram Capsule Discontinued 1 TAB PO Daily March 30, 2017 12:00am September 11, 2021 8:40pm QUEtiapine 25 mg oral tablet (20 sources)Atypical AntipsychoticStart: 01-15-2022 End: 36-93-2907okve 1 tablet by mouth once daily at bedtimeQuetiapine 25 mg tablet Discontinued 25 MG PO Daily at bedtime June 02, 2022 12:00am October 30, 2023 7:51amStart: 01-15-2022 End: 88-67-2987SDEqpczrav Fumarate 25 MG Oral Tablet TAKE 1 TABLET 2-3 TIMES DAILY. Quantity: 0 Refills: 0 Ordered: 15-Jan-2022 DO Start : 15-Jan-2022 Active Start: 46-26-6457vphs 1 tablet by mouth every twelve hours as neededQUEtiapine (SEROQUEL) 25 mg tablet Take 1 tablet by mouth twice daily as needed (Delirium) for up to 5 days. 10 tablet 0 11/27/2021 ActiveStart: 91-43-9050tjwo 1 tablet by mouth once daily at bedtimeQUEtiapine (SEROQUEL) 50 mg tablet Take 1 tablet by mouth daily at bedtime. 14 tablet 0 09/22/2021 ActiveComment on above:Take 1 tablet by mouth daily at bedtime.Take 1 tablet by mouth twice daily as needed (Delirium) for up to 5 days.TAKE ONE TABLET BY MOUTH EVERY NIGHT AT BEDTIME rizatriptan 10 mg oral tablet (20 sources)Serotonin-1b and Serotonin-1d Receptor AgonistStart: 12-22-2017 Maxalt 10 mg Tab 10 mg = 1 tab(s), Oral, Daily, PRN Migraine headache, may repeat dose once in 2 hours, Refills(s) 0, Migraine headache Start Date: 12/22/17 Status: Ordered End: 42-38-8542bbne 1 tablet by mouth three times daily as neededrizatriptan (MAXALT) 10 mg tablet Take 10 mg by mouth as needed. 3 times daily as needed 08/18/2021iscontinuedtake 1 tablet by mouth every two hours as needed, then take 3 tablets by mouth every twenty-four hours as neededRizatriptan Benzoate 10 MG Oral Tablet TAKE 1 TABLET AT ONSET OF HEADACHE. MAY REPEAT EVERY 2 HOURSAS NEEDED. MAXIMUM 3 TABLETS IN 24 HOURS. Quantity: 0 Refills: 0 Ordered: 24-Oct-2022 DO ActiverOPINIRole 1 mg oral tablet (20 sources)Nonergot Dopamine AgonistStart: 04-08-2024 End: 30-26-0086wdvi 1 tablet by mouth once daily in the morningRopinirole 1 mg tablet Discontinued 1 MG PO Every morning January 30, 2025 11:00pm April 17, 2025 11:39amStart: 10-30-2023 End: 16-93-8086bqtu 1 tablet by mouth once dailyRopinirole 0.5 mg tablet Discontinued 0.5 MG PO Daily October 29, 2023 11:00pm January 31, 2025 8:54am FreeTextSi tablet Orally Once a day; Note: Source Status: Taking; Refills: 1; Qty: 90 Tablet; Provider: Bonifacio Garcia LStart: 02-26-0410jycl 1 tablet by mouth in the eveningrOPINIRole (Requip) 1 MG tablet Indications: RLS (restless legs syndrome) Take 1 tablet (1 mg) by mouth in the evening 90 tablet 1 10/26/2023 Activeselenium 200 mcg tablet (8 sources) End: 64-40-8062dmwi 1 tablet by mouth once daily at bedtimeselenium 200 mcg tablet Take 1 tablet by mouth daily at bedtime. 11/27/2021 Discontinuedtake 1 tablet by mouth once daily at bedtimeselenium 200 mcg tablet Take 1 tablet by mouth daily at bedtime. 0 ActiveComment on above:Take 1 tablet by mouth daily at bedtime. sulfamethoxazole 800 mg / trimethoprim 160 mg oral tablet (20 sources)Dihydrofolate Reductase Inhibitor Antibacterial, Sulfonamide AntimicrobialStart: 08-18-2024 End: 51-04-3769wkcz 1 tablet by mouth twice dailySulfamethoxazole-Trimethoprim (Bactrim Ds) 800-160 mg tablet Discontinued 1 TAB PO Twice daily August 18, 2024 12:00am September 28, 2024 1:56pmStart: 01-26-2024 End: 19-36-0193nlzh 1 tablet by mouth twice dailySulfamethoxazole-Trimethoprim (Bactrim Ds) 800-160 mg tablet Discontinued 1 TAB PO Twice daily January 25, 2024 11:00pm July 28, 2024 1:18pmStart: 09-73-3958ncui 1 tablet by mouth every twelve hoursBactrim DS 800-160 MG 1 tablet Orally Twice a day for 10 days Mar, ActiveStart: 02-04-2022 End: 18-95-0685lfvj 1 tablet by mouth twice dailysulfamethoxazole-trimethoprim (BACTRIM DS) 800-160 mg per tablet Take 1 tablet by mouth twice dailyfor 14 days. 28 tablet 0 02/04/2022 02/18/2022 ActiveStart: 39-56-4463dhzq 1 tablet by mouth every twelve hoursBactrim DS 800-160 MG 1 tablet Orally Twice a day for 10 day(s) May, ActiveComment on above:Take 1 tablet by mouth twice daily for 14 days.TESTOSTERONE INTRAMUSC. (8 sources) End: 80-07-1354fepskg 300 mg by intramuscular injection every other week TESTOSTERONE INTRAMUSC. Inject 300 mg intramuscularly every other week. 11/27/2021 Discontinuedinject 300 mg by intramuscular injection every other week TESTOSTERONE INTRAMUSC. Inject 300 mg intramuscularly every other week. 0 Active Comment on above:Inject 300 mg intramuscularly every other week. Triamcinolone (20 sources)CorticosteroidStart: 51-21-4982ZHQOGXR - 10 mg Nov, 80 mg ubidecarenone (ULTRA COQ10 ORAL) (8 sources) End: 96-37-1100bcwa 50 mg by mouth once dailyubidecarenone (ULTRA COQ10 ORAL) Take 50 mg by mouth once daily. 11/27/2021 Discontinuedtake 50 mg by mouth once dailyubidecarenone (ULTRA COQ10 ORAL) Take 50 mg by mouth once daily. 0 Active Comment on above:Take 50 mg by mouth once daily.Vancomycin (5 sources)Glycopeptide AntibacterialStart: 09-22-2021 End: 70-01-8345nlep 1.5 g intravenously every twelve hoursvancomycin (VANCOCIN) 1.5 g in D5W 250 mL Inject 250 mL intravenously q 12 [place]. [address]1981 mL 0 09/22/2021 10/24/2021 ExpiredStart: 09-22-2021 End: 16-85-0577mhiv 1.5 g intravenously every twelve hoursvancomycin (VANCOCIN) 1.5 g in D5W 250 mL Inject 250 mL intravenously q 12 [place]. [address]30 mL 0 09/22/2021 10/24/2021 ActiveComment on above:Inject 250 mL intravenously q 12 HR.Vitamin B Complex (8 sources) End: 93-53-2659jqgs 1 tablet by mouth once dailyvitamin b complex tab Take 1 tablet by mouth once daily. 5000 mcg 11/27/2021 Discontinuedtake 1 tablet by mouth once dailyvitamin b complex tab Take 1 tablet by mouth once daily. 5000 mcg 0 ActiveComment on above:Take 1 tablet by mouth once daily. 5000 mcgVitamin B Complex Oral Capsule (1 source)Vitamin B Complex Oral Capsule as directed Quantity: 0 Refills: 0 Ordered: 24-Oct-2022 DO ActiveVitamin B12 1000 mcg Tab (15 sources)Start: 91-20-6740wdrt 1 tablet by mouth once dailyVitamin B12 1000 mcg Tab 1,000 microgram = 1 tab(s), Oral, Daily, Refills(s) 0, Muscle pain Start Date: 01/25/16 Status: Ordered Repeat number: 1Start: 33-43-7636hzsd 1 tablet by mouth once dailyVitamin B12 1000 mcg Tab 1,000 microgram = 1 tab(s), Oral, Daily, Refills(s) 0, Muscle pain Start Date: 01/25/16 Status: OrderedVitamin D TABS (1 source)Vitamin D TABS TAKE 1 TABLET DAILY. Quantity: 0 Refills: 0 Ordered: 24-Oct-2022 DO ActiveVitamin D3 1000 intl units oral tablet (1 source)Start: 40-10-0000xaai 2 tablets by mouth once dailyVitamin D3 1000 intl units oral tablet 2,000 International_Unit = 2 tab(s), Oral, Daily, # 30 tab(s), Refills(s) 0, Prophylaxis Start Date: 01/25/16 Status: Ordered Problems Active Problems Problem ClassificationProblemDateDocumented DateEpisodic/ChronicAbdominal pain (20 sources)Abdominal pain; Translations: [Unspecified abdominal pain]Onset: 05-09-2021 Resolved: 65-45-7715JkmmufpnIwzxh and unspecified renal failure (20 sources)Renal failure syndrome; Translations: [Unspecified kidney failure] ChronicAcute and unspecified renal failure (20 sources)Injury of kidney; Translations: [Acute kidney failure, unspecified] 52-99-8270LwyinqlrPuhxs cerebrovascular disease (20 sources)Cerebrovascular accident; Translations: [Thrombotic stroke]Onset: 05-19-2018 Resolved: 621992-29-6791PbaplyoYatased on above:2013- some residual thinking and talking difficulty, migraines cngrl0032Vfdxcaejvv disorders (20 sources)Adjustment disorder with anxious mood; Translations: [Adjustment disorder with anxiety]Onset: 07-18-2014 Resolved: 693498-01-2345YsewdrcCtcmcuwgottork/social admission (1 source)Other specified counselingEpisodicAnxiety disorders (20 sources)Panic disorder; Translations: [Panic disorder [episodic paroxysmal anxiety]]ChronicCalculus of urinary tract (20 sources)Kidney stone; Translations: [Calculus of kidney]EpisodicComment on above:lithotripsyChronic kidney disease (20 sources)Chronic kidney disease stage 3; Translations: [CKD (chronic kidney disease) stage 3, GFR 30-59 ml/min]Onset: 128738-17-4754CdkjmvcZxffzar obstructive pulmonary disease and bronchiectasis (1 source)Chronic obstructive lung xoelpiu16-37-4380KbvlkofXvqh; stupor; and brain damage (20 sources)Excessive daytime sleepiness - normal night sleep; Translations: [Somnolence]EpisodicComplications of surgical procedures or medical care (20 sources)Dehiscence of surgical wound; Translations: [Disruption of external operation (surgical) wound, notelsewhere classified, subsequent encounter]Onset: 09-12-2021 Resolved: 51-86-5677LznkvofxLcleobtlso associated with dizziness or vertigo (20 sources)Dizziness; Translations: [Dizziness and giddiness]96-08-8443Fvvupkvl Coronary atherosclerosis and other heart disease (20 sources)Angina pectoris; Translations: [Other and unspecified angina pectoris]Onset: 927193-54-4139BqjwiooYdrxazec mellitus without complication (20 sources)Impaired glucose tolerance; Translations: [Impaired glucose tolerance (oral)]Onset: 07-23-2021 Resolved: 37-26-8417EvftzpaeMrerplmuc of lipid metabolism (20 sources)Familial hypercholesterolemia; Translations: [Mixed hyperlipidemia] Onset: 07-23-2021 Resolved: 302155-15-1966ZxzqhfzLwqyifxwhjsjaa and diverticulitis (20 sources)Diverticular disease; Translations: [Diverticulosis of intestine, part unspecified, without perforation or abscess without bleeding]08-26-2023 ChronicE Codes: Adverse effects of medical drugs (2 sources)Adverse effect of other zqda-duxfoj-adoe drugs, initial encounter Onset: 07-23-2021 Resolved: 76-32-0551MhslsildNplzoabcxr disorders (20 sources)Gastroesophageal reflux disease; Translations: [Gastro-esophageal reflux disease without esophagitis]Onset: 856977-78-1962PydyojgScqhqzwdw hypertension (20 sources)Essential hypertension; Translations: [Essential (primary) hypertension]Onset: 07-23-2021 Resolved: 55-55-7926UwoddnqHdivuvnus and duodenitis (18 sources)Bile-induced gastritis; Translations: [Other gastritis without bleeding]EpisodicHeadache; including migraine (20 sources)Migraine; Translations: [Migraine, unspecified, not intractable, without status migrainosus]Onset: 02-28-2014 Resolved: 074559-70-3633HjbcmiuYqnpznkw; including migraine (20 sources)Headache; Translations: [Headache]Onset: 09-06-2013 Resolved: 254539-52-5352MoinhisqPhzskbewujq (18 sources)Hemorrhoids; Translations: [Unspecified hemorrhoids]Episodic Hepatitis (1 source)Nonalcoholic steatohepatitis (PEARL); Translations: [Nonalcoholic steatohepatitis (PEARL)]Onset: 81-22-0794QlwcnqsJmgayujyoem of prostate (20 sources)Benign prostatic hyperplasia; Translations: [Benign prostatic hypertrophy without outflow obstruction]Onset: 508795-71-0852Jemwhzf Immunity disorders (1 source)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; Translations: [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]Onset: 42-24-9946PbxwqxsZuuvdvrjssolv and screening for infectious disease (1 source)Encounter for immunizationEpisodicInfective arthritis and osteomyelitis (except that caused by tuberculosis or sexually transmitted di sease) (15 sources)Knee pyogenic tbxyrwafr07-44-6553UjofbjkuXsuf effects of cerebrovascular disease (20 sources)Late effects of cerebrovascular disease; Translations: [Other sequelae of other cerebrovascular disease]Onset: hronic Miscellaneous mental health disorders (20 sources)Chronic insomnia; Translations: [Psychophysiologic insomnia]Onset: 01-28-2022 Resolved: 87-92-5809LnndzlvYvqn disorders (20 sources)Depressive disorder; Translations: [Depression, unspecified]Onset: 175581-67-6667WgqadksYpta disorders (20 sources)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; Translations: [Mood disorder due to known physiological condition with mixed features]79-12-6765BbwywsmeMxiqmf and vomiting (20 sources)Nausea; Translations: [Nausea]Onset: 07-23-2021 Resolved: 41-95-6276MgmpdwrsZqqatiznyau chest pain (20 sources)Chest pain; Translations: [Chest pain, unspecified]02-28-2020 EpisodicOcclusion or stenosis of precerebral arteries (20 sources)Carotid artery stenosis; Translations: [Occlusion and stenosis of unspecified carotid artery]Onset: [id number] wounds of head; neck; and trunk (14 sources)Wound scxgoorcul52-05-4417YqfgperfGvqhqypwuslesm (20 sources)Osteoarthritis of right knee joint; Translations: [Osteoarthritis of knee]00-06-7812OubjentMwksl aftercare (3 sources)Patient encounter status; Translations: [Encounter for therapeutic drug level monitoring]EpisodicOther aftercare (20 sources)Polypharmacy ; Translations: [Other snf (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 therapy]24-73-2228AryureaaTxbyh aftercare (19 sources)detention (current) use of antibiotics; Translations: [Need for antibiotic prophylaxis for dental procedure]23-71-6048EkvyrwslPvuux and ill- defined heart disease (20 sources)Heart disease; Translations: [Heart disease, unspecified]12-05-2024 ChronicOther and ill-defined heart disease (2 sources)Heart disease, unspecifiedChronicOther and unspecified benign neoplasm (18 sources)Adenomatous polyp of colon ; Translations: [Benign neoplasm of colon, unspecified]EpisodicOther and unspecified benign neoplasm (18 sources)Benign neoplasm of transverse colon; Translations: [Benign neoplasm of transverse colon]EpisodicOther and unspecified benign neoplasm (18 sources)Hyperplastic polyp of intestine; Translations: [Benign neoplasm of colon, unspecified]EpisodicOther and unspecified benign neoplasm (2 sources)Polyp of colonEpisodicOther and unspecified benign neoplasm (2 sources)Melanocytic nevi of trunk; Translations: [Benign neoplasm of skin of trunk, except scrotum]14-67-7941YeoqkzncUijtq circulatory disease (1 source)History of transient ischemic attack; Translations: [Personal history of transient ischemic attack (TIA), and cerebral infarction without residual deficits]Onset: 59-90-6567LyobgvojCfmvp circulatory disease (20 sources)History of cerebrovascular accident; Translations: [Personal history of transient ischemic attack (TIA), and cerebral infarction without residual deficits]34-03-8487NhofpcshNhccf circulatory disease (3 sources)History of clinical finding in subject; Translations: [Personal history of other diseases of circulatory system]EpisodicOther circulatory disease (1 source)Orthostatic hypotensionEpisodicOther connective tissue disease (1 source)Pdmeq98-74-6840MbfgrpqzFjwbj connective tissue disease (18 sources)Rotator cuff syndrome; Translations: [Unspecified rotator cuff tear or rupture of left shoulder, not specified as traumatic]EpisodicOther connective tissue disease (20 sources)Falls; Translations: [Repeated falls]84-80-6847QsiksikkMcold connective tissue disease (7 sources)Repeated falls; Translations: [Other symptoms involving nervous and musculoskeletal systems]08-84-1363AwustuyoGtnvf connective tissue disease (1 source)Other specified soft tissue disordersEpisodicOther connective tissue disease (1 source)Pain in left armEpisodicOther connective tissue disease (3 sources)Medial epicondylitis, left elbowEpisodicOther connective tissue disease (5 sources)Other muscle spasm; Translations: [OTHER MUSCLE SPASM]Onset: 42-32-2124SpmopcanTgpty connective tissue disease (20 sources)Muscle pain; Translations: [Myalgia, unspecified site]Onset: 511863-87-3837BrwkzmztJircq diseases of veins and lymphatics (18 sources)Peripheral venous insufficiency; Translations: [Venous insufficiency (chronic) (peripheral)]EpisodicOther disorders of stomach and duodenum (20 sources)Nonulcer dyspepsia; Translations: [Functional dyspepsia]Episodic Other disorders of stomach and duodenum (3 sources)Functional dyspepsiaOnset: 07-23-2021 Resolved: 91-22-4778NdeiapyiHrxna ear and sense organ disorders (19 sources)Impacted cerumen; Translations: [Impacted cerumen, left ear] 89-34-3911JrrlqxnmJeldh ear and sense organ disorders (6 sources)Impacted cerumen, left ear; Translations: [Impacted cerumen] 31-81-4956NehhmlnyCpftl ear and sense organ disorders (7 sources)Impacted cerumen in left ear; Translations: [Impacted cerumen, left ear]19-91-8318CebhinomStrin endocrine disorders (18 sources)Hypogonadotropic hypogonadism; Translations: [Hypopituitarism] ChronicOther endocrine disorders (18 sources)Hypotestosteronism; Translations: [Testicular hypofunction]Chronic Other endocrine disorders (8 sources)Male hypogonadism; Translations: [Testicular hypofunction]04-01-2024 ChronicOther endocrine disorders (1 source)Testicular hypofunction; Translations: [Testicular hypofunction]Onset: 77-54-2541DhchtirHtbhf endocrine disorders (1 source)Hypopituitarism; Translations: [Hypopituitarism]Onset: 08-31-2024 ChronicOther endocrine disorders (1 source)Disorder of endocrine system; Translations: [Endocrine disorder, unspecified]Onset: 12-77-3610SruifoxzEsidf fractures (20 sources)Pseudoarthrosis of spine; Translations: [Unspecified fracture of unspecified lumbar vertebra, subsequent encounter for fracture with nonunion] Onset: 12-08-2014 Resolved: 912995-53-6161KpsktcebHtgbz gastrointestinal disorders (18 sources)Irritable bowel syndrome; Translations: [Irritable bowel syndrome without diarrhea]ChronicOther gastrointestinal disorders (18 sources)Heartburn; Translations: [Heartburn]EpisodicOther gastrointestinal disorders (20 sources)Diarrhea, unspecified; Translations: [Diarrhea]EpisodicOther gastrointestinal disorders (20 sources)Diarrhea; Translations: [Diarrhea, unspecified]06-36-7848Rdtrailt Other gastrointestinal disorders (2 sources)Constipation, unspecified; Translations: [Constipation, unspecified] 90-33-9072OkfqiyuoZgrvv hematologic conditions (1 source)Other abnormality of red blood cellsEpisodicOther hereditary and degenerative nervous system conditions (20 sources)Restless legs; Translations: [Restless legs syndrome]Onset: 100126-16-8233PlzbwrgKssde infections; including parasitic (15 sources)Disorder due to wjtqugpel25-82-0464SnctmzboXkargyo on above:Left knee woundOther inflammatory condition of skin (18 sources)Lichen simplex chronicus; Translations: [Lichen simplex chronicus] EpisodicOther injuries and conditions due to external causes (1 source)Delayed healing of wound; Translations: [Other injury of unspecified body region, subsequent encounter]EpisodicOther liver diseases (20 sources)Steatosis of liver; Translations: [Fatty (change of) liver, not elsewhere classified]37-35-5393GwxbcpwNhzpepi on above:Recent FibroScan from 06/12/2024 showed S3/F2 0-F1 changes despite greater than a 10% weight loss. Other liver diseases (20 sources)Fatty (change of) liver, not elsewhere classified; Translations: [Other chronic nonalcoholic liver disease]ChronicOther lower respiratory disease (1 source)Svmhejb20-81-6899EthicssgOfven lower respiratory disease (9 sources)Dyspnea on exertion; Translations: [Shortness of breath]Onset: 071334-72-6045JtijuthkNbond lower respiratory disease (1 source)SnoringEpisodicOther lower respiratory disease (2 sources)Shortness of breath; Translations: [Shortness of breath]Onset: 66-73-6445VqjutafzVebiw male genital disorders (18 sources)Impotence of organic origin; Translations: [Male erectile dysfunction, unspecified]ChronicOther male genital disorders (1 source)Disorder of male genital organ; Translations: [Other specified disorders of the male genital organs]Onset: 87-29-2832XylxopwmQavzl male genital disorders (2 sources)Cyst of epididymis; Translations: [Cyst of epididymis]Onset: 12-14-1014MaayawslOrcvc nervous system disorders (20 sources)Chronic pain; Translations: [Other chronic pain]Onset: 09-23-2021 ChronicOther nervous system disorders (20 sources)Chronic pain syndrome; Translations: [Chronic pain syndrome]Onset: 647792-19-4248TurwpbaMvyvx nervous system disorders (18 sources)Poor concentration; Translations: [Attention and concentration deficit]ChronicOther nervous system disorders (20 sources)Ulnar neuropathy of left arm; Translations: [Lesion of ulnar nerve, left upper limb]ChronicOther nervous system disorders (13 sources)Other chronic pain; Translations: [OTHER CHRONIC PAIN]Onset: 05-09-2021 Resolved: 60-32-8173QaislyrBuppy nervous system disorders (2 sources)Lesion of ulnar nerve, left upper limbChronicOther nervous system disorders (20 sources)Carpal tunnel syndrome; Translations: [Carpal tunnel syndrome, unspecified upper limb]Onset: 409324-56-2136BmamjvpPmlbx nervous system disorders (20 sources)Cervical syndrome; Translations: [Cervical root disorders, not elsewhere classified]Onset: 915635-30-7377AcliygkXycap nervous system disorders (20 sources)Bilateral carpal tunnel syndrome; Translations: [Carpal tunnel syndrome, bilateral upper limbs]Onset: 298623-84-7371BwgkegpJecon nervous system disorders (20 sources)Median neuropathy; Translations: [Other lesions of median nerve, unspecified upper limb]Onset: 693172-84-2184OxwmlykShgdu nervous system disorders (20 sources)Slurred speech; Translations: [Slurred speech]65-81-2572Tapkhrsv Other nervous system disorders (7 sources)Slurred speech; Translations: [Other speech disturbance]05-03-2022 EpisodicOther nervous system disorders (3 sources)Abnormal reflex; Translations: [Abnormal reflex]44-90-0773Cegbgsaq Other nervous system disorders (12 sources)Hyperreflexia; Translations: [Abnormal reflex]32-59-4137Bmdjmjpf Other non-traumatic joint disorders (1 source)Pain in right kneeEpisodicOther non-traumatic joint disorders (2 sources)Pain in left elbowEpisodicOther non-traumatic joint disorders (2 sources)Pain in right shoulder; Translations: [Pain in joint, shoulder region]26-22-0791QqdbytbqYyrum nutritional; endocrine; and metabolic disorders (20 sources)Obesity; Translations: [Obesity, unspecified]Onset: 09-12-2021 00-66-3602QwslqrxJmvyj nutritional; endocrine; and metabolic disorders (20 sources)Body mass index 30+ - obesity; Translations: [Body mass index (BMI) 37.0-37.9, adult]Onset: 28-49-7043FxlzcwgRpiym nutritional; endocrine; and metabolic disorders (20 sources)Obese class II; Translations: [Body mass index (BMI) 37.0-37.9, adult]Onset: 500621-04-0296UkckynyBabsa nutritional; endocrine; and metabolic disorders (20 sources)Morbid obesity; Translations: [Morbid (severe) obesity due to excess calories]Onset: 236610-54-4889CzjqsngLxcmr nutritional; endocrine; and metabolic disorders (20 sources)Body mass index 40+ - severely obese; Translations: [Body mass index (BMI) 40.0-44.9, adult]49-24-7079NzpnrghTxxlw nutritional; endocrine; and metabolic disorders (12 sources)Morbid (severe) obesity due to excess calories; Translations: [Morbid obesity]Onset: 07-23-2021 Resolved: 25-93-1669ByclvmnSshvh nutritional; endocrine; and metabolic disorders (8 sources)Body mass index (BMI) 39.0-39.9, adult; Translations: [Body Mass Index 39.0-39.9, adult]Onset: 02-25-2022 Resolved: 56-15-6840QvdeitjWkifa nutritional; endocrine; and metabolic disorders (20 sources)Metabolic syndrome X; Translations: [Metabolic syndrome]ChronicOther nutritional; endocrine; and metabolic disorders (7 sources)Obesity, unspecifiedChronicOther nutritional; endocrine; and metabolic disorders (5 sources)Body mass index (BMI) 45.0-49.9, adultChronicOther nutritional; endocrine; and metabolic disorders (6 sources)Metabolic syndromeChronicOther nutritional; endocrine; and metabolic disorders (20 sources)Body mass index (BMI) 40.0-44.9, adult; Translations: [Body Mass Index 40.0-44.9, adult]ChronicOther nutritional; endocrine; and metabolic disorders (6 sources)Obese class I; Translations: [Body mass index (BMI) 31.0-31.9, adult] ChronicOther nutritional; endocrine; and metabolic disorders (1 source)Body mass index (BMI) 31.0-31.9, adult; Translations: [BMI 31.0-31.9,adult]ChronicOther nutritional; endocrine; and metabolic disorders (2 sources)Severe obesity; Translations: [Class 2 severe obesity due to excess calories with serious comorbidity and body mass index (BMI) of 38.0 [place] 38.9 in adult [place] [place]25-84-8459KnmccqyOznql screening for suspected conditions (not mental disorders or infectious disease) (14 sources)Rhoptksqzlfdpeojyw65-76-6137ZjdgbprcCupjn skin disorders (18 sources)Dry skin; Translations: [Xerosis cutis]EpisodicOther skin disorders (1 source)Impaired skin integrity; Translations: [Unspecified skin changes] EpisodicOther skin disorders (1 source)Keloid scar; Translations: [Hypertrophic scar]EpisodicOther skin disorders (3 sources)Disorder of the skin and subcutaneous tissue, unspecified; Translations: [Unspecified disorder of skin and subcutaneous tissue]05-06-2024 EpisodicOther upper respiratory disease (1 source)Seasonal allergic rhinitis; Translations: [Other seasonal allergic rhinitis]Onset: 15-10-3210VfflhytBkunc upper respiratory disease (13 sources)Seasonal mjlobff76-64-9139TdggmyyHxojh upper respiratory disease (18 sources)Rhinitis; Translations: [Chronic rhinitis]ChronicOther upper respiratory disease (20 sources)Chronic rhinitis; Translations: [Chronic rhinitis]47-47-9004Hrsikmd Other upper respiratory disease (19 sources)Chronic rhinitis; Translations: [Chronic rhinitis]Onset: 07-23-2021 Resolved: 35-84-3039NmvmngbObycy upper respiratory disease (20 sources)Allergic rhinitis; Translations: [Allergic rhinitis, unspecified] ChronicOther upper respiratory disease (3 sources)Allergic rhinitis, unspecifiedChronicOther upper respiratory disease (1 source)Rhinitis medicamentosa; Translations: [Chronic rhinitis]ChronicOther upper respiratory infections (20 sources)Sinusitis; Translations: [Chronic sinusitis, unspecified]Chronic Other upper respiratory infections (12 sources)Acute sinusitis, unspecified; Translations: [Other acute sinusitis] Onset: 06-27-2021 Resolved: 31-98-3322OtpkhynqCcvpaolwsi and visceral atherosclerosis (15 sources)Arteriosclerotic vascular maathii75-78-1102SvirupsBsylrwrv codes; unclassified (20 sources)Sleep apnea; Translations: [Sleep apnea, unspecified]Onset: 984415-53-1149UftnkxeGshpuwq on above:uses CPapResidual codes; unclassified (20 sources)Obstructive sleep apnea syndrome; Translations: [Obstructive sleep apnea (adult) (pediatric)]Onset: 076206-30-6427XgzpecnQayghdz on above: cpap at nightResidual codes; unclassified (20 sources)Obstructive sleep apnea (adult) (pediatric); Translations: [Obstructive sleep apnea (adult)(pediatric)]Onset: 07-23-2021 Resolved: 48-19-7144VdawjilHqvwbcxn codes; unclassified (20 sources)Continuous positive airway pressure ventilation treatment; Translations: [Dependence on other enabling machines and devices]ChronicResidual codes; unclassified (20 sources)Obstructive sleep apnea of adult; Translations: [Obstructive sleep apnea (adult) (pediatric)]27-04-4446HiygqnhFdxsdajp codes; unclassified (11 sources)Daytime somnolence; Translations: [Other hypersomnia]08-01-2024 ChronicResidual codes; unclassified (10 sources)Other hypersomnia; Translations: [Hypersomnia, unspecified] 05-93-9331QvkfbmfXcguxgsy codes; unclassified (15 sources)Chronic back ekwr75-27-0677KqfjoystTavmruie codes; unclassified (1 source)Altered mental status; Translations: [Altered mental status, unspecified]Onset: 62-23-0562ZcvbufgcTucmhjhq codes; unclassified (18 sources)Prostate cancer screening declined; Translations: [Procedure and treatment not carried out because of patient's decision for unspecified reasons] EpisodicResidual codes; unclassified (3 sources)History of chest pain; Translations: [Personal history of other specified diseases]EpisodicResidual codes; unclassified (2 sources)Insomnia, unspecifiedOnset: 02-25-2022 Resolved: 62-46-2189StkmobdwKwyqnthn codes; unclassified (1 source)Other specified personal risk factors, not elsewhere classified EpisodicResidual codes; unclassified (6 sources)Never smoked any substance; Translations: [Other specified health status]Onset: 579819-32-5428OmqyhxkfPwcwddfn codes; unclassified (2 sources)Other specified health status; Translations: [Other specified health status]Onset: 79-50-6720QgtjvrkwCdvxywxpkictk and other psychotic disorders (20 sources)Psychosis associated with intensive care; Translations: [Unspecified psychosis not due to a substance or known physiological condition]Onset: 01-28-2022 Resolved: 41-05-2887ZafjgyaWsvuuepxks (except in labor) (20 sources)Sepsis; Translations: [Sepsis, unspecified organism]09-11-2021 EpisodicSkin and subcutaneous tissue infections (20 sources)Cellulitis; Translations: [Cellulitis, unspecified]09-03-2022 EpisodicSpondylosis; intervertebral disc disorders; other back problems (20 sources)Post-laminectomy syndrome; Translations: [Postlaminectomy syndrome, not elsewhere classified]Onset: 10-17-2015 Resolved: 88-95-7515CnqzbzjOuzfess on above:steroid injections, lumbar Spondylosis; intervertebral disc disorders; other back problems (20 sources)Backache; Translations: [Dorsalgia, unspecified]Onset: 10-25-2013 Resolved: 47-69-6641LwltunoeBmbajgn and strains (20 sources)Strain of neck muscle; Translations: [Strain of muscle, fascia and tendon at neck level, initial encounter]82-36-8048HkkjufdqQgjxwmpxp-related disorders (20 sources)Opioid dependence; Translations: [Opioid dependence, uncomplicated] Onset: 07-18-2014 Resolved: 326382-19-1731VfdmqmiPpcnrilod cerebral ischemia (20 sources)Transient cerebral ischemia; Translations: [Transient cerebral ischemic attack, unspecified]Onset: 901302-92-0521VqgjvkkDmqxdyapvtcw (1 source)LOW BACK PAIN, UNSPECIFIED; Translations: [LOW BACK PAIN, UNSPECIFIED] Onset: 75-08-6249Ftods infection (20 sources)Herpes labialis; Translations: [Herpesviral vesicular dermatitis] 86-64-7814Vghdsiqh Past or Other Problems Problem ClassificationProblemDateDocumented DateEpisodic/ChronicDeficiency and other anemia (20 sources)Anemia; Translations: [Anemia, unspecified]Onset: 01-04-2022 92-46-3101WfejszyfHjdijofkplwo with complications and secondary hypertension (20 sources)Secondary hypertension; Translations: [Secondary hypertension, unspecified]Onset: 08-07-2021 Resolved: 455574-54-4121ZwblnmpCmnvjlu and fatigue (4 sources)Other fatigue; Translations: [Other malaise and fatigue]Onset: 020106-15-2315ZqlizspyXpkby acquired deformities (20 sources)Lumbar spondylolisthesis; Translations: [Spondylolisthesis, lumbar region]Onset: 94-35-4812JtvkkkudHckxp acquired deformities (2 sources)Spondylolisthesis, lumbar region; Translations: [Spondylolisthesis of lumbar region]Onset: 89-52-3330PeclpynwFcnel aftercare (10 sources)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; Translations: [Long-term (current) use of other medications]Onset: 07-23-2021 Resolved: 11-08-4810UhopmqsvYphyb connective tissue disease (20 sources)History of lumbar fusion; Translations: [Arthrodesis status]Onset: 442123-12-6972PocvyfbcVbhoc connective tissue disease (20 sources)Weakness of left leg; Translations: [Other symptoms and signs involving the musculoskeletal system]Onset: 260001-78-7076LbboledgIvsrn connective tissue disease (1 source)Arthrodesis status; Translations: [S/P lumbar fusion]Onset: 08-18-2021 EpisodicOther connective tissue disease (20 sources)Other symptoms and signs involving the musculoskeletal system; Translations: [Other musculoskeletalsymptoms referable to limbs]Onset: 612115-74-5684DvtvldywLjlgh connective tissue disease (4 sources)Pain in right leg; Translations: [PAIN IN RIGHT LEG]Onset: 08-12-2022 EpisodicOther connective tissue disease (20 sources)Fibromyalgia; Translations: [Fibromyalgia]Onset: 11-07-2014 41-39-1901QphreyfaUmmwi connective tissue disease (20 sources)Spasm; Translations: [Other muscle spasm]Onset: EpisodicOther gastrointestinal disorders (1 source)Right lower quadrant abdominal swelling, mass and lumpOnset: 05-09-2021 Resolved: 47-69-9359ZoausqnkBaexd male genital disorders (3 sources)Other specified disorders of the male genital organs; Translations: [Other specified disorders of male genital organs]Onset: EpisodicOther nervous system disorders (20 sources)Skin sensation disturbance; Translations: [Paresthesia of skin] Onset: 658989-43-4170VaijiuyvFksqq nervous system disorders (20 sources)Paresthesia; Translations: [Paresthesia of skin]Onset: 10-29-2023 31-10-4206ZotkvizdMadnq nutritional; endocrine; and metabolic disorders (1 source)Abnormal weight lossOnset: 01-28-2022 Resolved: 72-48-7916VmabpnclZqinkmnm codes; unclassified (20 sources)Delirium; Translations: [Disorientation, unspecified]Onset: 188133-46-9384JyptqerpOnxtjzfq codes; unclassified (20 sources)Insomnia; Translations: [Insomnia, unspecified]Onset: 11-06-2014 98-22-0698JboyeawrNwuksoou codes; unclassified (1 source)Other specified postprocedural statesOnset: 01-28-2022 Resolved: 66-81-7406MviscpkmTqcondgwrft failure; insufficiency; arrest (adult) (1 source)Respiratory failure; insufficiency; arrest (adult)Onset: 01-28-2022 Resolved: 72-16-6572Wfpnvxqzqjq injury; contusion (7 sources)Abrasion, right lower leg, initial encounter; Translations: [Abrasion, right lower leg, initial encounter]Onset: 579555-76-9343 EpisodicUnclassified (1 source)Low back pain, unspecified M54.50Unclassified (2 sources)Never smoked tobacco; Translations: [Never a smoker]Unclassified (3 sources)Onset: 08-28-2023 Resolved: Results Test NameValueInterpretationReference MjjnlAmhkywzfO1G with Estimated Average Gluon 78-18-0407Vbijmro [Mass/Vol]117 mg/dLNoAtrium Health [facility] Comment on above:Result Comment: PERFORMED BY: [place] [address] PATHOLOGIST [employer] REPAIRER JAMAAL GOLDEN M.D.Performed By: #### IGG #### [facility] , #### CBC, BMP, A1C WT eA, HEPATIC, LIPID #### [facility] [address] [place] [address] USAAlanine aminotransferase [Enzymatic activity/volume] in Serum or PlasmaOrdered By: Jose Valdovinos on 57-61-7891MJU [Catalytic activity/Vol] 21 U/L7-52Berger HospitalComment on above:Performed By: #### IGG #### [facility] , #### CBC, BMP, A1C WTH eA, HEPATIC, LIPID #### [facility] [address] [place] [address] USAAlbumin [Mass/volume] in Serum or Plasma by Bromocresol green (BCG) dye binding methoOrdered By: Jose Valdovinos on 20-46-5468Edctzaq BCG dye [Mass/Vol]4.6 g/dL3.5-5.7FOhioHealth Berger HospitalAlkaline phosphatase [Enzymatic activity/volume] in Serum or PlasmaOrdered By: Jose Valdovinos on 42-37-7661GFL [Catalytic activity/Vol]55 U/C24-516IsuassjfaBerger HospitalComment on above:Performed By: #### IGG #### [facility] , #### CBC, BMP, A1C WTH eA, HEPATIC, LIPID #### [place] [address] USAAspartate aminotransferase [Enzymatic activity/volume] in Serum or PlasmaOrdered By: Jose Valdovinos on 36-23-9956GTN [Catalytic activity/Vol] 16 U/W44-92AkrpkdhysBerger HospitalComment on above:Performed By: #### IGG #### [facility] , #### CBC, BMP, A1C WTH eA, HEPATIC, LIPID #### [place] [address] USABasic Metabolic Panelon 25-93-4878NKQ/1.73 sq M.predicted MDRD (S/P/Bld) [Vol rate/Area]mL/min/{1.73_m2}NormalThe Crawley [facility] Hospital Physician GroupComment on above:Performed By: #### IGG #### [facility] , #### CBC, BMP, A1C WTH eA, HEPATIC, LIPID #### [place] [address] USABasophils [#/volume] in Blood by Automated countOrdered By: Jose Valdovinos on 48-19-7908Pqlybcnip (Bld) [#/Vol]0.0 10*3/uL0.0-0.2FOhioHealth Berger HospitalComment on above:Result Comment: PERFORMED BY: [place] [address] PATHOLOGIST PRODUCTION SKI REPAIRER JAMAAL GOLDEN M.D.Performed By: #### IGG #### [facility] , #### CBC, BMP, A1C WTH eA, HEPATIC, LIPID #### [facility] [address] [place] [address] USABasophils/100 leukocytes in Blood by Automated count Ordered By: Jose Valdovinos on 31-46-9827Vnyllfosw/100 WBC (Bld)0.5 %.Berger HospitalComment on above:Performed By: #### IGG #### [facility] , #### CBC, BMP, A1C WTH eA, HEPATIC, LIPID #### [facility] [address] [place] [address] USABilirubin.direct [Mass/volume] in Serum or PlasmaOrdered By: Jose Valdovinos on 89-40-5656Fcalwqwjw.direct [Mass/Vol]0.10 mg/dL0.03-0.18 Berger HospitalBilirubin.total [Mass/volume] in Serum or PlasmaOrdered By: Jose Valdovinos on 71-66-3687Gxilgbzni [Mass/Vol]0.6 mg/dL0.3-1.0 Berger HospitalComment on above:Performed By: #### IGG #### [facility] , #### CBC, BMP, A1C WTH eA, HEPATIC, LIPID #### [place] [address] USABlood estimated average glucose determination by estimation from glycated hemoglobinOrdered By: Jose Valdovinos on 41-72-8215Gwgopzx glucose Estimated from glycated hemoglobin (Bld) [Mass/Vol]117 mg/dLBerger HospitalCalcium [Mass/volume] in Serum or PlasmaOrdered By: Jose Valdovinos on 61-99-7095Dsshhqu [Mass/Vol]8.9 mg/dL8.6-10.3FOhioHealth Berger HospitalComment on above:Performed By: #### IGG #### [facility] , #### CBC, BMP, A1C WTH eA, HEPATIC, LIPID #### [place] [address] USACarbon dioxide, total [Moles/volume] in Serum or Plasma Ordered By: Jose Valdovinos on 03-79-5197QI4 [Moles/Vol]31.7 mmol/LHigh21.0-31.0 Berger HospitalComment on above:Performed By: #### IGG #### [facility] , #### CBC, BMP, A1C WTH eA, HEPATIC, LIPID #### [facility] [address] [place] [address] USAChloride [Moles/volume] in Serum or PlasmaOrdered By: Jose Valdovinos on 98-62-3638Tpvwbzcx [Moles/Vol]99 mmol/O77-582UubgfmcdiBerger HospitalComment on above:Performed By: #### IGG #### [facility] , #### CBC, BMP, A1C WTH eA, HEPATIC, LIPID #### [facility] [address] [place] [address] USACholesterol [Mass/volume] in Serum or PlasmaOrdered By: Jose Valdovinos on 90-98-5691Amhojnslokm [Mass/Vol]147 mg/lB136-786NqgluxfpeBerger HospitalComment on above:Chol less than 200 mg/dl low riskChol 201-239 mg/dl borderline riskChol 240 mg/dl and greater high riskResult Comment: Chol less than 200 mg/dl low risk Chol 201-239 mg/dl borderline risk Chol 240 mg/dl and greater high riskPerformed By: #### IGG #### [facility] , #### CBC, BMP, A1C WTH eA, HEPATIC, LIPID #### [facility] [address] [place] [address] USACholesterol in HDL [Mass/volume] in Serum or PlasmaOrdered By: Jose Valdovinos on 02-20-7620Jckqnxkvnrf in HDL [Mass/Vol]40 mg/dL23-92 Berger HospitalComment on above:HDL CHOL ATP-III CLASSIFICATION Cardiovascular RiskHDL > or equal to 60 mg/dL LOWHDL < 40 mg/dL HIGHResult Comment: HDL CHOL ATP-III CLASSIFICATION Cardiovascular Risk HDL > or equal to 60 mg/dL LOW HDL < 40 mg/dL HIGHPerformed By: #### IGG #### [facility] , #### CBC, BMP, A1C WTH eA, HEPATIC, LIPID #### [facility] [address] [place] [address] USACholesterol in LDL Calc [Mass/Vol]Ordered By: Jose Valdovinos on 47-45-1152Brtvtabqykk in LDL [Mass/Vol]39 mg/dL0-100Berger HospitalComment on above:LDL ATP III CLASSIFICATIONLDL less than 100 mg/dL OptimalLDL 100-129 mg/dL Near or above fanwansLGG962-963 mg/dL Borderline highLDL 160-189 mg/dL HighLDL greater than 189 mg/dL Very highCholesterol in VLDL Calc [Mass/Vol]Ordered By: Jose Valdovinos on 67-19-2482Rbjzzkohcfb in VLDL [Mass/Vol]68 mg/dLBerger HospitalComplete Blood Count Auto Diffon 79-08-2586Cyxk Corpuscular HGB Conc34.6 g/mZTgqinr81.5-35.6The [facility] Physician GroupComment on above:Performed By: #### IGG #### [facility] , #### CBC, BMP, A1C WTH eA, HEPATIC, LIPID #### [facility] [address] [place] [address] USANRBC%0.1 /100{WBC}Normal0-0.5[facility] Comment on above:Performed By: #### IGG #### [facility] , #### CBC, BMP, A1C WTH eA, HEPATIC, LIPID #### [facility] [address] [place] [address] USAWhite Blood Count5.4 [CFU]/mLNormal4.1-10.5The [facility] Physician GroupComment on above:Performed By: #### IGG #### [facility] , #### CBC, BMP, A1C WTH eA, HEPATIC, LIPID #### [facility] [address] [place] [address] USACreatinine [Mass/volume] in Serum or PlasmaOrdered By: Jose Valdovinos on 33-19-7351Kdtjtgjbci [Mass/Vol]1.30 mg/dL0.70-1.30Berger HospitalComment on above:Performed By: #### IGG #### [facility] , #### CBC, BMP, A1C WTH eA, HEPATIC, LIPID #### [place] [address] USAEosinophils [#/volume] in Blood by Automated countOrdered By: Jose Valdovinos on 67-60-3870Iibykzthtjw (Bld) [#/Vol]0.2 10*3/uL0.0-0.45 Berger HospitalComment on above:Performed By: #### IGG #### [facility] , #### CBC, BMP, A1C WTH eA, HEPATIC, LIPID #### [place] [address] USAEosinophils/100 leukocytes in Blood by Automated count Ordered By: Jose Valdovinos on 77-59-9445Bsgvgvhyobe/100 WBC (Bld)3.9 %.Berger HospitalComment on above:Performed By: #### IGG #### [facility] , #### CBC, BMP, A1C WTH eA, HEPATIC, LIPID #### [place] [address] USAErythrocyte distribution width [Ratio] by Automated count Ordered By: Jose Valdovinos on 88-55-9439Jbzxlvphyic distribution width (RBC) [Ratio]12.8 %12.0-14.8Berger HospitalComment on above: Performed By: #### IGG #### [facility] , #### CBC, BMP, A1C WTH eA, HEPATIC, LIPID #### [place] [address] USAErythrocytes [#/volume] in Blood by Automated countOrdered By: Jose Valdovinos on 20-92-7294RBD (Bld) [#/Vol]5.18 10*6/uL3.90-5.60Berger HospitalComment on above:Performed By: #### IGG #### [facility] , #### CBC, BMP, A1C WTH eA, HEPATIC, LIPID #### [facility] [address] [place] [id number] USAGlomerular filtration rate [Volume Rate/Area] in Serum, Plasma or Blood by CreatinineOrdered By: Jose Valdovinos on 65-83-9770Zuzitmbjos filtration rate [Volume Rate/Area] in Serum, Plasma or Blood by Creatinine> 60.0 mL/MinBerger HospitalGlucose [Mass/volume] in Serum or Plasma Ordered By: Jose Valdovinos on 26-66-5091Qirybfh [Mass/Vol]78 mg/sM41-513YhlwyfyvpBerger HospitalComment on above:ADA recommended reference rangeRandom Glucose Reference Range is dependent on time and content of last meal. Glucose of more than 200 mg/dL in a nonstressed, ambulatory subject supports the diagnosisof Diabetes Mellitus.Result Comment: Random Glucose Reference Range is dependent on time and content of last meal. Glucose of more than 200 mg/dL in a nonstressed, ambulatory subject supports the diagnosis of Diabetes Mellitus. ADA recommended reference rangePerformed By: #### IGG #### [facility] , #### CBC, BMP, A1C WTH eA, HEPATIC, LIPID #### [facility] [address] [place] [id number] USAHematocrit [Volume Fraction] of Blood by Automated count Ordered By: Jose Valdovinos on 25-16-1415Qblfprqrdy (Bld) [Volume fraction]48.8 % 38.8-50.0Berger HospitalComment on above:Performed By: #### IGG #### [facility] , #### CBC, BMP, A1C WTH eA, HEPATIC, LIPID #### [facility] [address] [place] [address] USAHemoglobin A1c/Hemoglobin.total in BloodOrdered By: Jose Valdovinos on 03-46-6514BrL2s (Bld) [Mass fraction]5.7 %High4.3-5.6FOhioHealth Berger HospitalComment on above:Increased risk for diabetes: 5.7 - 6.4diabetes: >6.4glycemic control for adults with diabetes: <7.0Result Comment: Increased risk for diabetes: 5.7 - 6.4 diabetes: >6.4 glycemic control for adults with diabetes: <7.0Performed By: #### IGG #### [facility] , #### CBC, BMP, A1C WTH eA, HEPATIC, LIPID #### [facility] [address] [place] [address] USAHemoglobin [Mass/volume] in BloodOrdered By: Jose Valdovinos on 21-54-9460Clnocsztfv (Bld) [Mass/Vol]16.9 g/dL13.0-17.0Berger HospitalComment on above:Performed By: #### IGG #### [facility] , #### CBC, BMP, A1C WTH eA, HEPATIC, LIPID #### [facility] [address] [place] [address] USAHepatic Panelon 06-76-8686Wjffkia [Mass/Vol]4.6 g/dLNormal 3.5-5.7The [facility] Physician GroupComment on above:Performed By: #### IGG #### [facility] , #### CBC, BMP, A1C WTH eA, HEPATIC, LIPID #### [facility] [address] [place] [id number] USABilirubin,Indirect0.5 mg/dLNormalThe [facility] Physician GroupComment on above:Performed By: #### IGG #### [facility] , #### CBC, BMP, A1C WTH eA, HEPATIC, LIPID #### [facility] [address] [place] [address] USABilirubin.indirect [Mass/Vol]0.10 mg/dLNormal0.03-0.18The [facility] Physician GroupComment on above:Performed By: #### IGG #### [facility] , #### CBC, BMP, A1C WTH eA, HEPATIC, LIPID #### [facility] [address] [place] [address] USALeukocytes [#/volume] corrected for nucleated erythrocytes in Blood by Automated counOrdered By: Jose Oberer on 70-01-1714SKH corrected for nucl RBC Auto (Bld) [#/Vol]5.4 10*3/uL4.1-10.5FOhioHealth Berger HospitalLeukocytes [#/volume] in Blood by Automated countOrdered By: Jose Oberer on 97-58-2888XEQ (Bld) [#/Vol]5.4 10*3/uL4.1-10.5FOhioHealth Berger HospitalComment on above:Performed By: #### IGG #### [facility] , #### CBC, BMP, A1C WTH eA, HEPATIC, LIPID #### [facility] [address] [place] [address] USALipid Panelon 65-76-8348XPL Cholesterol,Tlgzmgigcw18 mg/dL Normal0-100The [facility] Physician GroupComment on above:Result Comment: LDL ATP III CLASSIFICATION LDL less than 100 mg/dL Optimal LDL 100-129 mg/dL Near or above optimal LDL 130-159 mg/dL Borderline high LDL 160-189 mg/dL High LDL greater than 189 mg/dL Very highPerformed By: #### IGG #### [facility] , #### CBC, BMP, A1C WTH eA, HEPATIC, LIPID #### [facility] [address] [place] [address] USATriglyceride w/Fwgxzz639 mg/dLHigh0-149The [facility] Physician GroupComment on above:Result Comment: TRIG ATP III CLASSIFICATION TRIG less than 150 mg/dL Normal TRIG 150-199 mg/dL Borderline high TRIG 200-500 mg/dL High TRIG greater than 500 mg/dL Very high Standard traceable to the Center for Disease Conrtrol and Prevention (CDC) test method.Performed By: #### IGG #### [facility] , #### CBC, BMP, A1C WTH eA, HEPATIC, LIPID #### [facility] [address] [place] [address] USAVLDL JZWZQZPHURV09 mg/dLNoAtrium Health Kings Mountain Physician GroupComment on above:Performed By: #### IGG #### [facility] , #### CBC, BMP, A1C WTH eA, HEPATIC, LIPID #### [facility] [address] [place] [address] USALymphocytes [#/volume] in Blood by Automated countOrdered By: Jose Oberer on 06-34-4899Brzfloxmibz (Bld) [#/Vol]0.9 10*3/uLLow1.00-4.8 Berger HospitalComment on above:Performed By: #### IGG #### [facility] , #### CBC, BMP, A1C WTH eA, HEPATIC, LIPID #### [place] [address] USALymphocytes/100 leukocytes in Blood by Automated count Ordered By: Jose Obgustabor on 47-25-0965Odlxljwidim/100 WBC (Bld)16.2 %.Berger HospitalComment on above:Performed By: #### IGG #### [facility] , #### CBC, BMP, A1C WTH eA, HEPATIC, LIPID #### [address] [Entitic mass] by Automated countOrdered By: Jose Oberer on 46-50-2451HDU (RBC) [Entitic mass]32.7 pg27.5-35.2FOhioHealth Berger HospitalComment on above:Performed By: #### IGG #### [facility] , #### CBC, BMP, A1C WTH eA, HEPATIC, LIPID #### [facility] [address] [place] [address] Auto (RBC) [Mass/Vol]Ordered By: Jose Oberer on 13-89-3382UKBL (RBC) [Mass/Vol]34.6 g/dL32.5-35.6FOhioHealth Berger HospitalMCV [Entitic volume] by Automated countOrdered By: Jose Revelesdiane on 26-71-1655CMZ (RBC) [Entitic vol]94.2 fL83.5-101Berger HospitalComment on above:Performed By: #### IGG #### [facility] , #### CBC, BMP, A1C WTH eA, HEPATIC, LIPID #### [facility] [address] [place] [id number] USAMonocytes [#/volume] in Blood by Automated countOrdered By: Joseida Valdovinos on 94-77-6012Ysouwkdnp (Bld) [#/Vol]0.6 10*3/uL0.0-0.8Berger HospitalComment on above:Performed By: #### IGG #### [facility] , #### CBC, BMP, A1C WTH eA, HEPATIC, LIPID #### [facility] [address] [place], [place] [id number] USAMonocytes/100 leukocytes in Blood by Automated count Ordered By: Joseida Valdovinos on 80-12-5673Ugymgufap/100 WBC (Bld)11.9 %.Berger HospitalComment on above:Performed By: #### IGG #### [facility] , #### CBC, BMP, A1C WTH eA, HEPATIC, LIPID #### [facility] [address] [place] [id number] USANeutrophils [#/volume] in Blood by Automated countOrdered By: Jose Abdirizakdiane on 36-18-9810Whfgazpaort (Bld) [#/Vol]3.6 10*3/uL1.8-7.7 Berger HospitalComment on above:Performed By: #### IGG #### [facility] , #### CBC, BMP, A1C WTH eA, HEPATIC, LIPID #### [facility] [address] [place] [address] USANeutrophils/100 leukocytes in Blood by Automated count Ordered By: Jose Valdovinos on 82-10-3651Btbvtliucbg/100 WBC (Bld)67.5 %.Berger HospitalComment on above:Performed By: #### IGG #### [facility] , #### CBC, BMP, A1C WTH eA, HEPATIC, LIPID #### [facility] [address] [place] [address] USANo Panel InformationOrdered By: Jose Valdovinos on 04-18-2025 Pharmacy Creatinine Clear[facility] CenterNucleated erythrocytes [Presence] in Blood by Automated countOrdered By: Jose Valdvoinos on 83-83-7839Jmehbpbwn RBC Auto Ql (Bld)0.1 /100{WBC}0-0.5FOhioHealth Berger HospitalPlatelet mean volume [Entitic volume] in Blood by Automated count Ordered By: Jose Valdovinos on 06-10-4441Yxrgyndu mean volume (Bld) [Entitic vol]9.4 fL6.6-10.1FOhioHealth Berger HospitalComment on above:Performed By: #### IGG #### [facility] , #### CBC, BMP, A1C WTH eA, HEPATIC, LIPID #### [facility] [address] [place] [address] USAPlatelets [#/volume] in Blood by Automated countOrdered By: Jose Valdovinos on 23-10-3492Bjihrscvf (Bld) [#/Vol]159 10*3/sD672-741WqqwnwjhbBerger HospitalComment on above:Performed By: #### IGG #### [facility] , #### CBC, BMP, A1C WTH eA, HEPATIC, LIPID #### [facility] [address] [place] [address] USAPotassium [Moles/volume] in Serum or PlasmaOrdered By: Jose Valdovinos on 84-88-2256Cllxyccos [Moles/Vol]4.3 mmol/L3.5-5.1FOhioHealth Berger HospitalComment on above:Performed By: #### IGG #### [facility] , #### CBC, BMP, A1C WTH eA, HEPATIC, LIPID #### [facility] [address] [place] [address] USAProtein [Mass/volume] in Serum or PlasmaOrdered By: Jose Oberer on 70-59-5104Voaigfu [Mass/Vol]6.6 g/dL6.4-8.9Berger HospitalComment on above:Performed By: #### IGG #### [facility] , #### CBC, BMP, A1C WTH eA, HEPATIC, LIPID #### [facility] [address] [place] [address] USASerum globulin measurement by calculation (mass/volume) Ordered By: Jose Oberer on 86-53-9148Vtsbcbgt (S) [Mass/Vol]2.0 g/dLBerger HospitalComment on above:Performed By: #### IGG #### [facility] , #### CBC, BMP, A1C WTH eA, HEPATIC, LIPID #### [facility] [address] [place] [address] USASerum or plasma albumin/globulin mass ratioOrdered By: Jose Oberer on 45-34-6172Ritvbgu/Globulin [Mass ratio]2.3 {ratio}Berger HospitalComment on above:Performed By: #### IGG #### [facility] , #### CBC, BMP, A1C WTH eA, HEPATIC, LIPID #### [facility] [address] [place] [address] USASerum or plasma anion gap determinationOrdered By: Jose Oberer on 32-77-0738Egnmx gap [Moles/Vol]9.6 mmol/L6.0-15.0Berger HospitalComment on above:Performed By: #### IGG #### [facility] , #### CBC, BMP, A1C WTH eA, HEPATIC, LIPID #### [facility] [address] [place] [address] USASerum or plasma non-glucuronidated bilirubin measurement (mass/volume)Ordered By: Jose Valdovinos on 79-48-6628Fymbmctlv.indirect [Mass/Vol] 0.5 mg/dLOhioHealth Berger Hospitalerum or plasma total cholesterol/high density lipoprotein (HDL) cholesterol mass ratOrdered By: Jose Valdovinos on 82-45-5953Wucptuevsdy.total/Cholesterol in HDL [Mass ratio]3.7 {ratio}<5.0 Berger HospitalComment on above:Result Comment: PERFORMED BY: [place] [address] PATHOLOGIST PRODUCTION SKI REPAIRER JAMAAL GOLDEN M.D.Performed By: #### IGG #### [facility] , #### CBC, BMP, A1C WTH eA, HEPATIC, LIPID #### [place] [id number] USASodium [Moles/volume] in Serum or PlasmaOrdered By: Jose Valdovinos on 83-41-4972Mijolh [Moles/Vol]136 mmol/O230-908HzqdplznbBerger HospitalComment on above:Performed By: #### IGG #### [facility] , #### CBC, BMP, A1C WTH eA, HEPATIC, LIPID #### [place] [id number] USATriglyceride [Mass/volume] in Serum or PlasmaOrdered By: Jose Valdovinos on 65-79-2855Nqbmghlvfbzy [Mass/Vol]340 mg/dLHigh0-149Berger HospitalComment on above:TRIG ATP III CLASSIFICATIONTRIG less than 150 mg/dL NormalTRIG 150-199 mg/dL Borderline highTRIG 200-500 mg/dL High TRIG greater than 500 mg/dL Very highStandard traceable to the Center for Disease Conrtrol and Prevention (CDC) test method.Urea nitrogen [Mass/volume] in Serum or PlasmaOrdered By: Jose Valdovinos on 82-25-0149Fhqb nitrogen [Mass/Vol]19 mg/dL7-25Berger HospitalComment on above:Performed By: #### IGG #### [facility] , #### CBC, BMP, A1C WTH eA, HEPATIC, LIPID #### [facility] [address] [place] [id number] USACNPNon [id number] (NEADFV) MARY JIMENEZ ([id number]) 1960 M Date Time Provider Department 03/15/25 LOYDA STEELE NEADFV During your visit today, we recorded the following information about you: Yolanda Conde 03/15/2025 3:30 PM Signed Pt phoned requesting a call to schedule surgery Pt phone # [phone] Evita Hall, TONY 03/15/2025 3:38 PM Signed Called patient. No answer. LVM. Informed patient that we held 05/26 for patient at [facility]. Once verified that he accepts 05/26- we will contact other surgeon to see if he is available the same day. Allergies As of Date: 03/15/2025 Noted Allergy Reaction PENICILLINS 06/07/2014 10 - Anaphylaxis LATEX 09/04/2016 2 - Rash Date Reviewed: 01/04/2025 Reviewed by: Migdalia Oakes MA - Fully Assessed Reason for Visit: Appointment [186] Prescriptions as of 03/22/2025 - QUEtiapine (SEROQUEL) 25 mg tablet Take 1 tablet by mouth daily at bedtime. - methocarbamol (ROBAXIN) 500 mg tablet Take 1,000 mg by mouth. - HYDROcodone-Acetaminophen (NORCO) 7.5-325 mg per tablet Take 1 tablet by mouth every 8 hours as needed for pain. - Pregabalin (LYRICA) 200 mg capsule Take 1 capsule by mouth three times daily for 90 days. - lactobacillus combination no.4 3 billion [...] twice daily. Problem List As Of Date 03/15/2025 Noted Resolved Headache(784.0) [R51] 07/18/2014 08/18/2021 Adjustment [...] disorder with radiculopathy [M50.*09/15/2024 Encounter Status:Closed by EVITA HALL [facility]/25[facility] 2 Viewson 59-41-3650Nfpjmki Result: AP Grashey and scapular Y-view of the right shoulder demonstrates no obvious fracture or subluxation of the reverse shoulder replacement.[facility] HealthcareRadiology Study observation (narrative)[facility] Hemoglobin [Mass/volume] in BloodOrdered By: oRsey Dubose on 02-28-2025 Hemoglobin (Bld) [Mass/Vol]16.9 g/dL13.0-17.0[facility] Comment on above:Result Comment: PERFORMED BY: [place] [address] PATHOLOGIST PRODUCTION SKI REPAIRER JAMAAL GOLDEN M.D.Performed By: #### HGB, PSATOTAL, TEST #### [facility] [address] [place] [address] USAPSA Total (Not a Screen)on 08-21-3823HYY Total (Not a Screen)0.140 ng/mLNormal0.000-4.000The [facility] Physician GroupComment on above:Result Comment: Serial tumor marker results determined by assays using different manufacturers or methods may not be comparable. [facility] Laboratory milling machinist and method: Oxygen BiotherapeuticsEL DXI, CHEMILUMINESCENT IMMUNOASSAY. PERFORMED BY: [place] [address] PATHOLOGIST PRODUCTION SKI REPAIRER JAMAAL GOLDEN M.D.Performed By: #### IGG #### [facility] , #### CBC, BMP, A1C WTH eA, HEPATIC, LIPID #### [facility] [address] [place], [place] [id number] USAProstate specific Ag [Mass/volume] in Serum or Plasma Ordered By: Rosey Dubose on 46-12-3958Vuhkemeu specific Ag [Mass/Vol]0.140 ng/mL0.000-4.000Berger HospitalComment on above:Serial tumor marker results determined by assays using different manufacturers or methods may not be comparable.[facility] milling machinist and method:[employer] DXI, CHEMILUMINESCENT IMMUNOASSAY.Testosteroneon 10-55-9525Rapetryoyaam3.90 ng/mLNormal1.75-7.81The [facility] Physician GroupComment on above:Result Comment: PERFORMED BY: [facility] [address] [place] [address] PATHOLOGIST PRODUCTION SKI REPAIRER JAMAAL GOLDEN M.D.Performed By: #### IGG #### [facility] , #### CBC, BMP, A1C WTH eA, HEPATIC, LIPID #### [facility] [address] [place] [address] USATestosterone [Mass/volume] in Serum or PlasmaOrdered By: Rosey Duboes on 50-34-7785Dxdqxsmcipub [Mass/Vol]2.90 ng/mL1.75-7.81Berger HospitalCNPNon [id number] (NEADFV) MARY JIMENEZ ([id number]) 1960 M Date Time Provider Department 02/23/25 LOYDA STEELE NEADFV During your visit today, we recorded the following information about you: Yolanda Conde 02/23/2025 9:32 AM Signed Pt phoned to follow up with surgery scheduling. Pt unaware of appt 03/08, have relayed this to Pt. Pt asking if needs to bring anything to appt. Please advise Pt phone #[phone] Allergies As of Date: 02/23/2025 Noted Allergy Reaction PENICILLINS 06/07/2014 10 - Anaphylaxis LATEX 09/04/2016 2 - Rash Date Reviewed: 01/04/2025 Reviewed by: Migdalia Oakes MA - Fully Assessed Reason for Visit: Patient Question [9857] Prescriptions as of 02/23/2025 - methocarbamol (ROBAXIN) [...] [M50.*09/15/2024 Encounter Status:Closed by GRETA NUNEZ on 02/23/25[facility] on 29-51-8489GQIWIvccbalrp (NEADFV) MARY JIMENEZ ([id number]) 1960 M Date Time Provider Department 02/20/25 LOYDA STEELE NEDIANAFV During your visit today, we recorded the following information about you: Yolanda Conde 02/20/2025 10:02 AM Signed Pt phoned to follow up w results of recent test. Please call and advise Pt phone #[phone] Allergies As of Date: 02/20/2025 Noted Allergy [...] [M50.*09/15/2024 Encounter Status:Closed by [facility] CON[facility] on 53-50-0539UBQAXxyksy Visit (TXCTGL) BARBARAMARY ([id number]) 1960 Date Time Provider Department 02/13/25 8:30 AM [facility] TXCTGL During your visit today, we recorded the following information about you: Temperature Pulse Blood pressure Weight 98.1 degrees 75/minute 134/86 123.9 kg Height 1.765 m Anibal Kumar MD 03/01/2025 10:24 AM Signed UROLOGY SURGICAL Evaluation SERVICE DATE: 02/13/2025 SERVICE TIME: Seen by Anibal Rodriguez MD 03/01/2025 10:24 AM Signed Chief Complaint: for evaluation on the planned ALIF surgery History of Present Illness: Alfredo Jimenez is [...] EXAM: BP 134/86 Pulse 75 Temp 36.7 ?C (98.1 ?F) (Temporal) Ht 176.5 cm (5' 9.49 ) Wt 123.9 kg (273 lb 2.4 oz) SpO2 97% BMI 39.77 kg/m? General appearance: Well appearing, alert, in no [...] grossly intact. ASSESSMENT: no h/o DVT, PE, LA, or CVA yes anticoagulation: plavix PLAN: - Because of the previous ALIF surgery, possible adhesion may be encountered during the surgery. Explain the possibility of aborting the surgery because of adhesion as well as the possibility of vascular injury during the exposure. - CT: no calcification on CIAs - Will discuss with Dr. Steele for further planning - I spent 45 minutes on the chart review and interviewing with the patient. Anibal Kumar MD Allergies As of Date: 02/13/2025 Noted Allergy Reaction PENICILLINS 06/07/2014 10 - Anaphylaxis LATEX 09/04/2016 2 - Rash Date Reviewed: 01/04/2025 Reviewed by: Migdalia Oakes MA - Fully Assessed Reason for Visit: Follow Up [171] Primary Visit Diagnosis:Spondylosis [M47.9] Other Visit Diagnosis:Chronic bilateral low back pain with bilateral sciatica [M54.42, M54.41, G89.29] Order(s):UA DIP, URINE (POC) [[id number]] Order #: [id number]. #:[id number] Prescriptions as of 03/01/2025 - methocarbamol (ROBAXIN) 500 mg tablet Take [...] tablet Take 40 mg by mouth as (more content not included)...NormalMcCullough-Hyde Memorial Hospital DIP, URINE (POC)on 22-75-3216YSBQEIQKI UA (POCT)NegativeNegative [facility] HospitalCLARITY UA (POCT)ClearBarnesville HospitalCOLOR UA (POCT)Yellow [facility] HospitalGLUCOSE UA (POCT)NegativeNegative mg/dLBarnesville Hospital Hemoglobin Ql (U)NegativeNegativeBarnesville HospitalKETONE UA (POCT)Negative Negative mg/dLBarnesville HospitalLEUKOCYTES UA (POCT)NegativeNegativeBarnesville HospitalNITRITE UA (POCT)NegativeNegativeBarnesville HospitalPH UA (POCT)6.04.5 - 8.0 [facility] HospitalProtein Ql (U)NegativeNegative mg/dLRegency Hospital Cleveland EastPECIFIC GRAVITY UA (POCT)1.0151.005 - 1.030Barn[facility]ville HospitalUROBILINOGEN UA (POCT)0.2 Normal E.U./dLBarnesville HospitalLocation:[facility], [address] [place] [address], [address]UPVLBTOCCWEXNER MEDICAL CENTER POINT OF CAREBarnesville HospitalCNPNon [id number] (NEADFV) MARY JIMENEZ ([id number]) 1960 M Date Time Provider Department 02/09/25 LOYDA STEELE During your visit today, we recorded the following information about you: Sidra Duval 02/09/2025 1:25 PM Signed Pt called - wondering if Dr. Steele will prescribe another steroid pack for his back - said his back is in terrible pain - #[phone] Allergies As of Date: 02/09/2025 Noted Allergy Reaction PENICILLINS 06/07/2014 10 - Anaphylaxis LATEX 09/04/2016 2 - Rash Date Reviewed: 01/04/2025 Reviewed by: Migdalia Oakes MA - Fully Assessed Reason for Visit: Medication Request [138] Order(s):methylPREDNISolone (MEDROL, JOAQUÍN,) 4 mg Dose-PackAs instructed per [...] METHYLPREDNISOLONE 4 MG TABLET (more content not included)...NormalFairview HospitalBasophils [#/volume] in Blood by Automated countOrdered By: Danisha Bran on 30-55-9752Ebahjmmvn (Bld) [#/Vol]0.0 10*3/uL0.0-0.2FOhioHealth Berger HospitalComment on above:Result Comment: PERFORMED BY: [place] [address] PATHOLOGIST PRODUCTION SKI REPAIRER JAMAAL GOLDEN M.D.Performed By: #### IGG #### [facility] , #### CBC, BMP, A1C WTH eA, HEPATIC, LIPID #### [place] [address] USABasophils/100 leukocytes in Blood by Automated count Ordered By: Danisha Bran on 61-91-1117Shqeneiuw/100 WBC (Bld)1.0 %. Berger HospitalComment on above:Performed By: #### IGG #### [facility] , #### CBC, BMP, A1C WTH eA, HEPATIC, LIPID #### [address] [place] [address] USACarbon dioxide, total [Moles/volume] in Serum or Plasma Ordered By: Danisha Bran on 72-56-7756FN6 [Moles/Vol]29.4 mmol/L21.0-31.0 Berger HospitalComment on above:Performed By: #### IGG #### [facility] , #### CBC, BMP, A1C WTH eA, HEPATIC, LIPID #### [facility] [address] [place] [address] USAChloride [Moles/volume] in Serum or PlasmaOrdered By: Danisha Bran on 67-38-2371Khybtysq [Moles/Vol]101 mmol/H50-581JxujchrqiBerger HospitalComment on above:Performed By: #### IGG #### [facility] , #### CBC, BMP, A1C WTH eA, HEPATIC, LIPID #### [facility] [address] [place] [id number] USACholesterol [Mass/volume] in Serum or PlasmaOrdered By: Danisha Bran on 11-14-0367Yagtdewazqj [Mass/Vol]140 mg/kZ938-966LdybongopBerger HospitalComment on above:Chol less than 200 mg/dl low riskChol 201-239 mg/dl borderline riskChol 240 mg/dl and greater high riskResult Comment: Chol less than 200 mg/dl low risk Chol 201-239 mg/dl borderline risk Chol 240 mg/dl and greater high riskPerformed By: #### IGG #### [facility] , #### CBC, BMP, A1C WTH eA, HEPATIC, LIPID #### [facility] [address] [place] [id number] USACholesterol in HDL [Mass/volume] in Serum or PlasmaOrdered By: Danisha Bran on 61-34-2389Tztxwspxusg in HDL [Mass/Vol]39 mg/dL23-92 Berger HospitalComment on above:HDL CHOL ATP-III CLASSIFICATION Cardiovascular RiskHDL > or equal to 60 mg/dL LOWHDL < 40 mg/dL HIGHResult Comment: HDL CHOL ATP-III CLASSIFICATION Cardiovascular Risk HDL > or equal to 60 mg/dL LOW HDL < 40 mg/dL HIGHPerformed By: #### IGG #### [facility] , #### CBC, BMP, A1C WTH eA, HEPATIC, LIPID #### [facility] [address] [place] [address] USACholesterol in LDL Calc [Mass/Vol]Ordered By: Danisha Bran on 58-13-0015Yzeqbhimqgc in LDL [Mass/Vol]60 mg/dL0-100Berger HospitalComment on above:LDL ATP III CLASSIFICATIONLDL less than 100 mg/dL OptimalLDL 100-129 mg/dL Near or above lwlsdbjBNM633-270 mg/dL Borderline highLDL 160-189 mg/dL HighLDL greater than 189 mg/dL Very high Cholesterol in VLDL Calc [Mass/Vol]Ordered By: Danisha Bran on 01-31-2025 Cholesterol in VLDL [Mass/Vol]40 mg/dLBerger Hospital Coagulation Profileon 25-12-4884iWIL Coag (Bld) [Time]36.4 rVcqlpr52.1-36.5The [facility] Physician GroupComment on above:Result Comment: A hematocrit value greater than 55% may lead to inaccurate results in coagulation testing. Patients having hematocrit values >55% require a special collection tube for coagulation studies. Please contact the laboratory at [phone] for redraw instructions. PERFORMED BY: [address] [place] [address] PATHOLOGIST PRODUCTION SKI REPAIRER JAMAAL GOLDEN M.D.Performed By: #### IGG #### [facility] , #### CBC, BMP, A1C WTH eA, HEPATIC, LIPID #### [facility] [address] [place] [address] USAComplete Blood Count Auto Diffon 88-43-1805Pcun Corpuscular HGB Conc34.0 g/mHVututa07.5-35.6The [facility] Physician GroupComment on above:Performed By: #### IGG #### [facility] , #### CBC, BMP, A1C WTH eA, HEPATIC, LIPID #### [facility] [address] [place] [address] USANRBC%0.2 /100{WBC}Normal0-0.5[facility] Comment on above:Performed By: #### IGG #### [facility] , #### CBC, BMP, A1C WTH eA, HEPATIC, LIPID #### [place] [address] USAWhite Blood Count4.3 [CFU]/mLNormal4.1-10.5The [facility] Physician GroupComment on above:Performed By: #### IGG #### [facility] , #### CBC, BMP, A1C WTH eA, HEPATIC, LIPID #### [place] [address] USACreatinineon 49-54-6027KLI/1.73 sq M.predicted MDRD (S/P/Bld) [Vol rate/Area]57.752 mL/min/{1.73_m2}NormalThe [facility]ley Memorial Hospital Physician GroupComment on above:Performed By: #### IGG #### [facility] , #### CBC, BMP, A1C WTH eA, HEPATIC, LIPID #### [place] [address] USACreatinine [Mass/volume] in Serum or PlasmaOrdered By: Danisha Bran on 16-24-2103Ewdbejmzle [Mass/Vol]1.36 mg/dLHigh0.70-1.30 Berger HospitalComment on above:Performed By: #### IGG #### [facility] , #### CBC, BMP, A1C WTH eA, HEPATIC, LIPID #### [place] [address] USAECG 12 lead ECGon 27-17-2632BIH 12 lead [facility]SUB[facility] Main [facility] [address] [place] [id number] Electrocardiograph Report Signed Patient: Mary Jimenez MR#: [id number] : 1960 Acct:[id number] Age/Sex: 64 / M ADM Date: 01/31/25 Loc: PS Room: Type: [facility] Attending Dr: Danisha Bran MD Ordering Provider: Danisha Bran MD Date of Service: 01/31/2511/21/923 ECG/ECG 12 lead ECG: [facility] PST Copies to: Test Reason : Blood [...] ) Borderline ECG Confirmed by Gracia Aly ([id number]) on 01/31/2025 3:10:11 PM Referred By: Electronically Signed By: Gracia Aly Transcribed By: MUS Signed By Gracia Aly MD [address] [place] [address] Physician GroupEosinophils [#/volume] in Blood by Automated countOrdered By: Danisha Bran on 38-44-2310Eljbzsrzjnm (Bld) [#/Vol]0.2 10*3/uL0.0-0.45Berger HospitalComment on above: Performed By: #### IGG #### [facility] , #### CBC, BMP, A1C WTH eA, HEPATIC, LIPID #### [facility] [address] [place] [address] USAEosinophils/100 leukocytes in Blood by Automated count Ordered By: Danisha Bran on 71-92-9404Uqkrlvxbkmv/100 WBC (Bld)5.4 %. Berger HospitalComment on above:Performed By: #### IGG #### [facility] , #### CBC, BMP, A1C WTH eA, HEPATIC, LIPID #### [facility] [address] [place] [address] USAErythrocyte distribution width [Ratio] by Automated count Ordered By: Danisha Bran on 56-43-4869Klbwiqktcbd distribution width (RBC) [Ratio]13.3 %12.0-14.8Berger HospitalComment on above: Performed By: #### IGG #### [facility] , #### CBC, BMP, A1C WTH eA, HEPATIC, LIPID #### [facility] [address] [place] [id number] USAErythrocytes [#/volume] in Blood by Automated countOrdered By: Danisha Bran on 49-75-4554AAU (Bld) [#/Vol]4.70 10*6/uL3.90-5.60 Berger HospitalComment on above:Performed By: #### IGG #### [facility] , #### CBC, BMP, A1C WTH eA, HEPATIC, LIPID #### [place] [id number] USAHematocrit [Volume Fraction] of Blood by Automated count Ordered By: Danisha Bran on 51-97-6567Qybewqgjcb (Bld) [Volume fraction] 45.3 %38.8-50.0Berger HospitalComment on above:Performed By: #### IGG #### [facility] , #### CBC, BMP, A1C WTH eA, HEPATIC, LIPID #### [facility] [address] [place] [id number] USAHemoglobin [Mass/volume] in BloodOrdered By: Danisha Bran on 16-62-9125Jncguobbor (Bld) [Mass/Vol]15.4 g/dL13.0-17.0Berger HospitalComment on above:Performed By: #### IGG #### [facility] , #### CBC, BMP, A1C WTH eA, HEPATIC, LIPID #### [facility] [address] [place] [address] USAINR in Platelet poor plasma by Coagulation assayOrdered By: Danisha Bran on 00-99-8477HRJ Coag (PPP) [Relative time]1.0 {INR} Berger HospitalComment on above:INR Therapeutic Range A) Pre- and Peroperative OAT started two weeks before surgery. NOT HIP SURGERY: 1.5 - 2.5 HIP SURGERY: 2 - 3B) Primary and secondary prevention of venous THROMBOSIS: 2 - 3C) Active venous thrombosis, pulmonary embolismand prevention of recurrent venous thrombosis: 2 - 3D) Prevention of arterial thromboembolismincluding patients with mechanical heart valves: 3 - 4.5Result Comment: INR Therapeutic Range A) Pre- and [...] patients with mechanical heart valves: 3 - 4.5Performed By: #### IGG #### [facility] , #### CBC, BMP, A1C WTH eA, HEPATIC, LIPID #### [facility] [address] [place] [address] USALeukocytes [#/volume] corrected for nucleated erythrocytes in Blood by Automated counOrdered By: Danisha Bran on 78-74-3491TOC corrected for nucl RBC Auto (Bld) [#/Vol]4.3 10*3/uL4.1-10.5FOhioHealth Berger HospitalLeukocytes [#/volume] in Blood by Automated countOrdered By: Danisha Bran on 36-74-4092EML (Bld) [#/Vol]4.3 10*3/uL4.1-10.5FOhioHealth Berger HospitalComment on above:Performed By: #### IGG #### [facility] , #### CBC, BMP, A1C WTH eA, HEPATIC, LIPID #### [facility] [address] [place] [address] USALipid Panelon 64-78-8924JIQ Cholesterol,Emlhtpupna93 mg/dL Normal0-100[facility] Physician [facility] HospitalComment on above:Result Comment: LDL ATP III CLASSIFICATION LDL less than 100 mg/dL Optimal LDL 100-129 mg/dL Near or above optimal LDL 130-159 mg/dL Borderline high LDL 160-189 mg/dL High LDL greater than 189 mg/dL Very highPerformed By: #### IGG #### [facility] , #### CBC, BMP, A1C WTH eA, HEPATIC, LIPID #### [facility] [address] [place] [id number] USATriglyceride w/Gsxoxq132 mg/dLHigh0-149[facility] Physician [facility] HospitalComment on above:Result Comment: TRIG ATP III CLASSIFICATION TRIG less than 150 mg/dL Normal TRIG 150-199 mg/dL Borderline high TRIG 200-500 mg/dL High TRIG greater than 500 mg/dL Very high Standard traceable to the Center for Disease Conrtrol and Prevention (CDC) test method.Performed By: #### IGG #### [facility] , #### CBC, BMP, A1C WTH eA, HEPATIC, LIPID #### [facility] [address] [place] [id number] USAVLDL BJVOMMODPNX50 mg/dLNormFayette County Memorial Hospitale Torrance State HospitalComment on above:Performed By: #### IGG #### [facility] , #### CBC, BMP, A1C WTH eA, HEPATIC, LIPID #### [facility] [address] [place] [id number] USALymphocytes [#/volume] in Blood by Automated countOrdered By: Danisha Bran on 67-86-7432Kwtwbimlbab (Bld) [#/Vol]0.8 10*3/uLLow 1.00-4.8Berger HospitalComment on above:Performed By: #### IGG #### [facility] , #### CBC, BMP, A1C WTH eA, HEPATIC, LIPID #### [facility] [address] [place] [id number] USALymphocytes/100 leukocytes in Blood by Automated count Ordered By: Danisha Bran on 50-89-7651Bgkzsmuvxag/100 WBC (Bld)18.6 %. Berger HospitalComment on above:Performed By: #### IGG #### [facility] , #### CBC, BMP, A1C WTH eA, HEPATIC, LIPID #### [facility] [address] [place] [id number] MUSCOGEEH [Entitic mass] by Automated countOrdered By: Danisha Bran on 48-99-5487APN (RBC) [Entitic mass]32.8 pg27.5-35.2FOhioHealth Berger HospitalComment on above:Performed By: #### IGG #### [facility] , #### CBC, BMP, A1C WTH eA, HEPATIC, LIPID #### [facility] [address] Auto (RBC) [Mass/Vol]Ordered By: Danisha Bran on 74-09-0681LHHI (RBC) [Mass/Vol]34.0 g/dL32.5-35.6FOhioHealth Berger HospitalMCV [Entitic volume] by Automated countOrdered By: Danisha Bran on 54-21-7419WCU (RBC) [Entitic vol]96.5 fL83.5-101Berger HospitalComment on above:Performed By: #### IGG #### [facility] , #### CBC, BMP, A1C WTH eA, HEPATIC, LIPID #### [facility] [address] [place] [address] USAMonocytes [#/volume] in Blood by Automated countOrdered By: Danisha Bran on 61-64-8994Tzkyjdcaw (Bld) [#/Vol]0.6 10*3/uL0.0-0.8 Berger HospitalComment on above:Performed By: #### IGG #### [facility] , #### CBC, BMP, A1C WTH eA, HEPATIC, LIPID #### [facility] [address] [place] [address] USAMonocytes/100 leukocytes in Blood by Automated count Ordered By: Danisha Bran on 48-95-4281Gbvtcbqsj/100 WBC (Bld)14.0 %. Berger HospitalComment on above:Performed By: #### IGG #### [facility] , #### CBC, BMP, A1C WTH eA, HEPATIC, LIPID #### [facility] [address] [place] [address] USANeutrophils [#/volume] in Blood by Automated countOrdered By: Danisha Bran on 77-94-8467Qagvothdqop (Bld) [#/Vol]2.6 10*3/uL1.8-7.7 Berger HospitalComment on above:Performed By: #### IGG #### [facility] , #### CBC, BMP, A1C WTH eA, HEPATIC, LIPID #### [facility] [address] [place] [address] USANeutrophils/100 leukocytes in Blood by Automated count Ordered By: Danisha Bran on 52-76-8448Ctsycupelrx/100 WBC (Bld)61.0 %. Berger HospitalComment on above:Performed By: #### IGG #### [facility] , #### CBC, BMP, A1C WTH eA, HEPATIC, LIPID #### [facility] [address] [place] [address] USANo Panel InformationOrdered By: Danisha Bran on 83-19-9326Kfohbkcys GFR (CKD-EPI)57.752 mL/MinBerger Hospital Pharmacy Creatinine Clearance (ChemN/[facility]'s Medical CenterNucleated erythrocytes [Presence] in Blood by Automated countOrdered By: Danisha Bran on 42-40-3407Tjdshvvwo RBC Auto Ql (Bld)0.2 /100{WBC}0-0.5FOhioHealth Berger HospitalPlatelet mean volume [Entitic volume] in Blood by Automated countOrdered By: Danisha Bran on 84-18-8678Azrydhmu mean volume (Bld) [Entitic vol]9.0 fL6.6-10.1FOhioHealth Berger HospitalComment on above:Performed By: #### IGG #### [facility] , #### CBC, BMP, A1C WTH eA, HEPATIC, LIPID #### [facility] [address] [place] [id number] USAPlatelets [#/volume] in Blood by Automated countOrdered By: Danisha Bran on 34-28-8897Lznfxoqla (Bld) [#/Vol]155 10*3/jI614-338 Berger HospitalComment on above:Performed By: #### IGG #### [facility] , #### CBC, BMP, A1C WTH eA, HEPATIC, LIPID #### [facility] [address] [place], [place] [address] USAPotassium [Moles/volume] in Serum or PlasmaOrdered By: Danisha Bran on 95-60-6721Jmcmryeqn [Moles/Vol]4.3 mmol/L3.5-5.1FOhioHealth Berger HospitalComment on above:Performed By: #### IGG #### [facility] , #### CBC, BMP, A1C WTH eA, HEPATIC, LIPID #### [facility] [address] [place], [place] [address] USAProthrombin time (PT)Ordered By: Danisha Bran on 58-81-4828EB Coag (PPP) [Time]11.0 s9.0-12.9[facility] Hospital Comment on above:A hematocrit value greater than 55% may lead to inaccurate results in coagulation testing. Patientshaving hematocrit values >55% require a special collection tube for coagulation studies. Please contact the laboratory at [phone] for redraw instructions.Result Comment: A hematocrit value greater than 55% may lead to inaccurate results in coagulation testing. Patients having hematocrit values >55% require a special collection tube for coagulation studies. Please contact the laboratory at [phone] for redraw instructions.Performed By: #### IGG #### [facility] , #### CBC, BMP, A1C WTH eA, HEPATIC, LIPID #### [place] [address] USASerum or plasma anion gap determinationOrdered By: Danisha Bran on 72-65-9325Ihyot gap [Moles/Vol]10.9 mmol/L6.0-15.0Berger HospitalComment on above:Performed By: #### IGG #### [facility] , #### CBC, BMP, A1C WTH eA, HEPATIC, LIPID #### [place] [address] USASerum or plasma total cholesterol/high density lipoprotein (HDL) cholesterol mass ratOrdered By: Danisha Bran on 01-31-2025 Cholesterol.total/Cholesterol in HDL [Mass ratio]3.6 {ratio}<5.0Berger HospitalComment on above:Result Comment: PERFORMED BY: [place] [address] PATHOLOGIST PRODUCTION SKI REPAIRER JAMAAL GOLDEN M.D.Performed By: #### IGG #### [facility] , #### CBC, BMP, A1C WTH eA, HEPATIC, LIPID #### [place] [address] USASodium [Moles/volume] in Serum or PlasmaOrdered By: Danisha Bran on 25-92-8872Dbfrit [Moles/Vol]137 mmol/T411-219AkxfdrdowBerger HospitalComment on above:Performed By: #### IGG #### [facility] , #### CBC, BMP, A1C WTH eA, HEPATIC, LIPID #### [place] [address] USATriglyceride [Mass/volume] in Serum or PlasmaOrdered By: Danisha Bran on 53-85-7398Eqawzecwchse [Mass/Vol]203 mg/dLHigh0-149 Berger HospitalComment on above:TRIG ATP III CLASSIFICATIONTRIG less than 150 mg/dL NormalTRIG 150-199 mg/dL Borderline highTRIG 200-500 mg/dL High TRIG greater than 500 mg/dL Very highStandard traceable to the Center for Disease Conrtrol and Prevention (CDC) test method. Urea nitrogen [Mass/volume] in Serum or PlasmaOrdered By: Danisha Bran on 12-42-6955Ovuw nitrogen [Mass/Vol]25 mg/dL7Ber[facility] Hospital Comment on above:Performed By: #### IGG #### [facility] , #### CBC, BMP, A1C WTH eA, HEPATIC, LIPID #### [facility] [address] [place] [address] USAaPTT in Platelet poor plasma by Coagulation assayOrdered By: Danisha Bran on 96-37-3923uXWX Coag (PPP) [Time]36.4 s25.1-36.5 Berger HospitalComment on above:A hematocrit value greater than 55% may lead to inaccurate results in coagulation testing. Patientshaving hematocrit values >55% require a special collection tube for coagulation studies. Please contact the laboratory at [phone] for redraw instructions. Pamela 89-11-8040RYIXOljfukffh (NEADFV) MARY JIMENEZ ([id number]) 1960 M Date Time Provider Department 01/09/25 LOYDA STEELE During your visit today, we recorded the following information about you: Sidra Duval 01/09/2025 4:06 PM Signed Pt called - said when he met with Dr. Steele, he promised that he would give him a call today after consulting with another surgeon and he hasn't heard anything so he decided to call us - would like a call back #[phone] Greta Nunez RN 01/13/2025 8:09 AM Signed Will address in MyChart encounter. Allergies As of Date: 01/09/2025 Noted Allergy Reaction PENICILLINS 06/07/2014 10 - Anaphylaxis LATEX 09/04/2016 2 - Rash Date Reviewed: 01/04/2025 Reviewed by: Migdalia Oakes MA - Fully Assessed Reason for Visit: Patient Question [2650] Prescriptions as of 01/13/2025 - methocarbamol (ROBAXIN) [...] [M50.*09/15/2024 Encounter Status:Closed by [facility]25[facility] on 43-28-1965QRAGGyrmdh Visit (NSFRVW) MARY JIMENEZ ([id number]) 1960 [place] Date Time Provider Department 01/04/25 11:40 AM LOYDA STEELE NSFRVW During your visit today, we recorded the following information about you: Pulse Blood pressure Weight Height 64/minute 134/81 125.2 kg 1.765 m Loyda Steele MD 01/04/2025 1:14 PM Signed SPINE SURGERY ESTABLISHED PATIENT PCP: Jose Valdovinos DO REFERRING PROVIDER: Loyda Steele [address] [address] [facility] [address] Assessment/Plan (S32.009K) Lumbar pseudoarthrosis (primary encounter diagnosis) [...] 5-14 Normal: PHQ-9 < 5 Data from [facility] Epic on prior therapies: Last PT [...] loosening at S1. Referring Provider: LOYDA STEELE [[id number]] Allergies As of Date: 01/04/2025 Noted Allergy [...] - docusate sodium (COLACE) (more content not included)...[facility] XR tibia fibula RT 2V*on 95-61-3387YH tibia fibula RT 2V*[facility] Main [facility] [address] [place] [address] XRay Report Signed Patient: Mary Jimenez MR#: [id number] : 1960 Acct:[id number] Age/Sex: 64 / M ADM Date: 12/08/24 Loc: XDS Room: Type: [facility] Attending Dr: Palak Merritt LUNCHROOM MOTHER-C Copies to: Palak Merritt LUNCHROOM MOTHER-C Ordering Provider: Palak Merritt [employer]CHRO[employer] MOTHER-C Date of Service: 12/08/24 XR/XR tibia fibula RT 2V*: S80.811A 2 views right tibia-fibula INDICATION: Abrasion COMPARISON:: None FINDINGS:: Soft tissue swelling identified. No radiopaque foreign body. Postsurgical changes of the arthroplasty appear intact. Degenerative changes at the level ankle noted. XR/XR tibia fibula RT 2V* IMPRESSION: No fractures or dislocation. Impression dictated by: Vega Dash M.D. 12/08/2024 7:25 PM Dictation Location: [place] [address] Transcribed By: [facility] 12/08/241924 Dictated By: Vega Dash MD 12/08/241923 Signed By: 12/08/241924[facility] Physician GroupAmbulatory Visit Summaryon 09-63-5442Jztppbcnus Visit SummaryAmbulatory Visit Summary MARY JIMENEZ :1960 Visit Date:12/05/2024 Ambulatory Visit Instructions Your Diagnosis Scrotal mass BPH (benign prostatic hyperplasia) Epididymal cyst Your Care Team Attending Physician - Gilmar EDUARDO MD Primary Care Physician - JOSE VALDOVINOS DO Referring Physician - JOSE VALDOVINOS DO This Is Your Medications List Non-Formulary Medication (Green Tea Capsule) Turmeric (turmeric 500 mg oral capsule) acetaminophen-hydrocodone (Valatie 325 mg-5 mg oral tablet) ascorbic acid [...] Tab) fluticasone nasal (fluticasone Nasal 0.05 mg/inh [place]) fremanezumab (Ajovy Autoinjector 225 mg/1.5 mL subcutaneous [...] How Much When Why Instructions Unchanged acetaminophen-hydrocodone (Valatie 325 mg-5 mg oral tablet) 1 Tablets [...] fluticasone nasal (fluticasone Nasal 0.05 mg/ inh [place]) 2 Sprays Nasal Inhalation 2 timesa day Unchanged fremanezumab (Ajovy Autoinjector 225 mg/ 1.5 mL subcutaneous solution) 225 Milligram Subcutaneous Once a month Unchanged fremanezumab (Ajovy Autoinjector) Subcutaneous Once a month Unchanged furosemide (Lasix 40 mg Tab) By Mouth Every day Unchanged furosemide (Lasix) 40 Milligram By Mouth Every day Unchanged isosorbide mononitrate (isosorbide mononitrate 30 mg ER Tab) Uncha (more content not included)...[facility] HospitalOVon 79-47-8952KOHPJagfho Visit (NSFRVW) MARY JIMENEZ ([id number]) 1960 M Date Time Provider Department 11/30/24 11:40 AM LOYDA STEELE NSFRVW During your visit today, we recorded the following information about you: Pulse Blood pressure Weight Height 96/minute 115/65 125.6 kg 1.765 m Loyda Steele MD 11/30/2024 6:32 PM Signed SPINE SURGERY ESTABLISHED PATIENT PCP: Jose Valdovinos DO REFERRING PROVIDER: Loyda Steele [address] [facility] [address] Assessment/Plan (M54.16) Lumbar radiculopathy (primary encounter diagnosis) 1. Lumbar radiculopathy (M54.16) - Persistent bilateral lower back pain, predominantly on the left side, with a history of incomplete bone healing at L5-S1 as per July CT scan. - Ordered lumbar epidural steroid injection to be performed by Dr. Alba at [facility]. - Prescribed a course of oral steroids [...] a location closer to his home in [place]. Neck: (-) neck pain Musculoskeletal: (+) low [...] 5-14 Normal: PHQ-9 < 5 Data from [facility] Epic on prior therapies: Last PT [...] formation at L5-S1 Referring Provider: LOYDA STEELE [[id number]] Allergies As of Date: 11/30/2024 Noted Allergy Reaction PENICILLINS 06/07/2014 10 - Anaphylaxis LATEX 09/04/2016 2 - Rash Date Reviewed: 11/30/2024 Reviewed by: Nikos London, CHITRA - Fully Assessed Reason for Visit: Follow Up [171] Cmt: Pt states that lower back pain has increased. States he had a fall that made it worse Primary Visit Diagnosis:Lumbar radiculopathy [M54.16] Order(s):methylPREDNISolone (MEDROL DOSE-PACK) 4 mg Dose-PackTake as instructed per package.Disp: 21 tabletRfl: 0 SPINE INTERVENTION PROCEDURE [[id number]] Order #: [id number] [facility](NEURO/NI) [[id number]] Order #: [id number]: 1 FUTURE Prescriptions as of 11/30/2024 - methocarbamol (ROBAXIN) 500 mg tablet Take 1,000 mg by mouth. - HYDROcodone-Acetaminophen (N (more content not included)...[facility]Fair[facility] 51-20-5080PZ [facility] Main [place] [id number] Ultrasound Report Signed Patient: Mary Jimenez MR#: [id number] : 1960 Acct:[id number] Age/Sex: 64 / M ADM Date: 11/23/24 Loc: Room: Type: [facility] Attending Dr: Jose Valdovinos DO Ordering Provider: [...] Chambers M.D. 11/23/2024 12:18 PM Dictation Location: [place] [address] Tech: Amarilis Geo Transcribed By: ISIDRO 11/23/24 1218 Dictated By: Vivian Chambers MD 11/23/24 1214 Signed By: 11/23/24 1218[facility] Physician [facility] HospitalTrigger Point Injection: right cervical paraspinals, left cervical paraspinalson 75-50-9266Vwcn [place], [place] 10/27/2024 11:07 AM Trigger Point Injection: right cervical paraspinals, left cervical paraspinals on 10/27/2024 10:20 AM Indications: pain, muscle spasm and myalgia Details: 25 G needle Medications: 6 mL bupivacaine 0.25 % Outcome: tolerated well, no immediate complications Procedure, treatment alternatives, risks and benefits explained, specific risks discussed. Consent was given by the patient. [facility] HospitalNOMN VbnbyiqjdxS4P with Estimated Average Gluon 25-75-4421Yvynbvp [Mass/Vol]105 mg/dLNormUF Health North Physician GroupComment on above:Result Comment: PERFORMED BY: [facility] [address] [place] [address] PATHOLOGIST PRODUCTION SKI REPAIRER KRISTA BRUNER M.D.Performed By: #### IGG #### [facility] , #### CBC, BMP, A1C WTH eA, HEPATIC, LIPID #### [facility] [address] [place] [address] ZKZSyV1t (Bld) [Mass fraction]5.3 %Normal4.3-5.6The [facility] Physician GroupComment on above:Result Comment: Increased risk for diabetes: 5.7 - 6.4 diabetes: >6.4 glycemic control for adults with diabetes: <7.0Performed By: #### IGG #### [facility] , #### CBC, BMP, A1C WTH eA, HEPATIC, LIPID #### [facility] [address] [place] [address] USAAlanine aminotransferase [Enzymatic activity/volume] in Serum or PlasmaOrdered By: Jose Valdovinos on 67-55-7456UXL [Catalytic activity/Vol] Alanine aminotransferase [Enzymatic activity/volume] in Serum or Plasma7-52 Berger HospitalAlbumin [Mass/volume] in Serum or Plasma by Bromocresol green (BCG) dye binding methoOrdered By: Jose Valdovinos on 10-19-2024 Albumin BCG dye [Mass/Vol]Albumin [Mass/volume] in Serum or Plasma by Bromocresol green (BCG) dye binding metho3.5-5.7FOhioHealth Berger HospitalAlkaline phosphatase [Enzymatic activity/volume] in Serum or PlasmaOrdered By: Jose Valdovinos on 79-08-3225ZZI [Catalytic activity/Vol]Alkaline phosphatase [Enzymatic activity/volume] in Serum or Ljmfzd32-454UnoljtxagBerger HospitalAspartate aminotransferase [Enzymatic activity/volume] in Serum or Plasma Ordered By: Jose Valdovinos on 23-87-6178DOS [Catalytic activity/Vol]Aspartate aminotransferase [Enzymatic activity/volume] in Serum or Vuirtr21-89AdlsxycgvBerger HospitalBasic Metabolic Panelon 89-21-4489Bwunc gap [Moles/Vol] 9.3 mmol/LNormal6.0-15.0The [facility] Physician GroupComment on above:Order Comment: FASTING.JKWPerformed By: #### IGG #### [facility] , #### CBC, BMP, A1C WTH eA, HEPATIC, LIPID #### [facility] [address] [place] [address] USACalcium [Mass/Vol]8.8 mg/dLNormal8.6-10.3The [facility] Physician GroupComment on above:Order Comment: FASTING.JKWPerformed By: #### IGG #### [facility] , #### CBC, BMP, A1C WTH eA, HEPATIC, LIPID #### [facility] [address] [place] [address] USAChloride [Moles/Vol]103 mmol/IAzjcux27-932Mvx [facility] Physician GroupComment on above:Order Comment: FASTING.JKWPerformed By: #### IGG #### [facility] , #### CBC, BMP, A1C WTH eA, HEPATIC, LIPID #### [facility] [address] [place] [address] USACO2 [Moles/Vol]30.2 mmol/QIschwl74.0-31.0The [facility] Physician GroupComment on above:Order Comment: FASTING.JKWPerformed By: #### IGG #### [facility] , #### CBC, BMP, A1C WTH eA, HEPATIC, LIPID #### [facility] [address] [place] [address] USACreatinine [Mass/Vol]1.32 mg/dLHigh0.70-1.30The [facility] Physician GroupComment on above:Order Comment: FASTING.JKWPerformed By: #### IGG #### [facility] , #### CBC, BMP, A1C WTH eA, HEPATIC, LIPID #### [facility] [address] [place] [address] USAEstimated GFR59.858 mL/MinNormalThe [facility] Physician GroupComment on above:Order Comment: FASTING.JKWPerformed By: #### IGG #### [facility] , #### CBC, BMP, A1C WTH eA, HEPATIC, LIPID #### [facility] [address] [place] [address] USAGlucose [Mass/Vol]90 mg/dYHlelkv10-615Uxo [facility] Physician GroupComment on above:Order Comment: FASTING.JKWResult Comment: Random Glucose Reference Range is dependent on time and content of last meal. Glucose of more than 200 mg/dL in a nonstressed, ambulatory subject supports the diagnosis of Diabetes Mellitus. ADA recommended reference rangePerformed By: #### IGG #### [facility] , #### CBC, BMP, A1C WTH eA, HEPATIC, LIPID #### [place] [address] USAPotassium [Moles/Vol]4.5 mmol/LNormal3.5-5.1The [facility] Physician GroupComment on above:Order Comment: FASTING.JKWPerformed By: #### IGG #### [facility] , #### CBC, BMP, A1C WTH eA, HEPATIC, LIPID #### [place] [address] USASodium [Moles/Vol]138 mmol/QYthyot861-131Mxr [facility] Physician GroupComment on above:Order Comment: FASTING.JKWPerformed By: #### IGG #### [facility] , #### CBC, BMP, A1C WTH eA, HEPATIC, LIPID #### [facility] [address] [place] [address] USAUrea nitrogen [Mass/Vol]25 mg/dLNormal7-25The [facility] Physician GroupComment on above:Order Comment: FASTING.JKWPerformed By: #### IGG #### [facility] , #### CBC, BMP, A1C WTH eA, HEPATIC, LIPID #### [facility] [address] [place] [address] USABasophils Auto (Bld) [#/Vol]Ordered By: Jose Valdovinos on 51-68-6165Dmivbboyy (Bld) [#/Vol]Automated basophil count0.0-0.2FOhioHealth Berger HospitalBasophils/100 WBC Auto (Bld)Ordered By: Jose Valdovinos on 93-82-9316Ykirlxupi/100 WBC (Bld)Automated basophil %.Berger HospitalBilirubin.direct [Mass/volume] in Serum or PlasmaOrdered By: Jose Valdovinos on 62-70-8682Wuuutwlaj.direct [Mass/Vol]Bilirubin.direct [Mass/volume] in Serum or Plasma0.03-0.18FOhioHealth Berger HospitalBilirubin.total [Mass/volume] in Serum or PlasmaOrdered By: Jose Valdovinos on 02-93-5605Xtfwlsido [Mass/Vol] Bilirubin.total [Mass/volume] in Serum or Plasma0.3-1.0Berger HospitalBlood estimated average glucose determination by estimation from glycated hemoglobinOrdered By: Jose Valdovinos on 55-50-9646Gyicklk glucose Estimated from glycated hemoglobin (Bld) [Mass/Vol]Glucose mean value [Mass/volume] in Blood Estimated from glycated hemoglobinBerger HospitalCalcium [Mass/volume] in Serum or PlasmaOrdered By: Jose Valdovinos on 03-83-8922Wwxdifd [Mass/Vol]Calcium [Mass/volume] in Serum or Plasma8.6-10.3 Berger HospitalCarbon dioxide, total [Moles/volume] in Serum or PlasmaOrdered By: Jose Valdovinos on 40-41-5670XW2 [Moles/Vol]Carbon dioxide, total [Moles/volume] in Serum or Lrlxvz31.0-31.0Fire[facility] Regional Medical CenterChloride [Moles/volume] in Serum or PlasmaOrdered By: Jose Valdovinos on 95-53-4280Pyufzlpb [Moles/Vol]Chloride [Moles/volume] in Serum or Liyvhr04-586 Berger HospitalCholesterol [Mass/volume] in Serum or Plasma Ordered By: Jose Valdovinos on 91-65-4625Jvxdvorcdpt [Mass/Vol]Cholesterol [Mass/volume] in Serum or Npvcxw269-100GgcxskpybBerger HospitalComment on above:Chol less than 200 mg/dl low riskChol 201-239 mg/dl borderline riskChol 240 mg/dl and greater high riskCholesterol in HDL [Mass/volume] in Serum or PlasmaOrdered By: Jose Valdovinos on 21-64-4610Sbqifjdinxy in HDL [Mass/Vol]Serum or plasma high density lipoprotein (HDL) cholesterol oajqvexslei20-37GyrhagskiBerger HospitalComment on above:HDL CHOL ATP-III CLASSIFICATION Cardiovascular RiskHDL > or equal to 60 mg/dL LOWHDL < 40 mg/dL HIGHCholesterol in LDL Calc [Mass/Vol]Ordered By: Jose Valdovinos on 84-61-5496Pvjlmjoeukm in LDL [Mass/Vol]Cholesterol in LDL [Mass/volume] in Serum or Plasma by calculation 0-100Berger HospitalComment on above:LDL ATP III CLASSIFICATIONLDL less than 100 mg/dL OptimalLDL 100-129 mg/dL Near or above tmoyzqwCEO283-469 mg/dL Borderline highLDL 160-189 mg/dL HighLDL greater than 189 mg/dL Very highCholesterol in VLDL Calc [Mass/Vol]Ordered By: Jose Valdovinos on 31-57-0384Mufvobhyjoo in VLDL [Mass/Vol]Cholesterol in VLDL [Mass/volume] in Serum or Plasma by calculationBerger HospitalComplete Blood Count Auto Diffon 18-43-3082Ghiqmbwrx (Bld) [#/Vol]0.0 10*3/uLNormal0.0-0.2The [facility] Physician GroupComment on above:Result Comment: PERFORMED BY: [place] [address] [place] [address] PATHOLOGIST PRODUCTION SKI REPAIRER KRISTA BRUNER M.D.Performed By: #### IGG #### [facility] , #### CBC, BMP, A1C WTH eA, HEPATIC, LIPID #### [facility] [address] [place] [address] USABasophils/100 WBC (Bld)0.8 %Normal.The [facility] Physician GroupComment on above:Performed By: #### IGG #### [facility] , #### CBC, BMP, A1C WTH eA, HEPATIC, LIPID #### [place] [address] USAEosinophils (Bld) [#/Vol]0.2 10*3/uLNormal0.0-0.45The [facility] Physician GroupComment on above:Performed By: #### IGG #### [facility] , #### CBC, BMP, A1C WTH eA, HEPATIC, LIPID #### [place] [address] USAEosinophils/100 WBC (Bld)5.0 %Normal.The [facility] Physician GroupComment on above:Performed By: #### IGG #### [facility] , #### CBC, BMP, A1C WTH eA, HEPATIC, LIPID #### [facility] [address] [place] [address] USAErythrocyte distribution width (RBC) [Ratio]13.1 %Normal 12.0-14.8The [facility] Physician GroupComment on above:Performed By: #### IGG #### [facility] , #### CBC, BMP, A1C WTH eA, HEPATIC, LIPID #### [facility] [address] [place] [address] USAHematocrit (Bld) [Volume fraction]46.9 %Gnxvtw91.8-50.0The [facility] Physician GroupComment on above:Performed By: #### IGG #### [facility] , #### CBC, BMP, A1C WTH eA, HEPATIC, LIPID #### [place] [address] USAHemoglobin (Bld) [Mass/Vol]16.3 g/iRLvhlwl62.0-17.0The [facility] Physician GroupComment on above:Performed By: #### IGG #### [facility] , #### CBC, BMP, A1C WTH eA, HEPATIC, LIPID #### [place] [address] USALymphocytes (Bld) [#/Vol]0.9 10*3/uLLow1.00-4.8The [facility] Physician GroupComment on above:Performed By: #### IGG #### [facility] , #### CBC, BMP, A1C WTH eA, HEPATIC, LIPID #### [place] [address] USALymphocytes/100 WBC (Bld)20.5 %Normal.The [facility] Physician GroupComment on above:Performed By: #### IGG #### [facility] , #### CBC, BMP, A1C WTH eA, HEPATIC, LIPID #### [place] [address] USAMCH (RBC) [Entitic mass]33.1 vmNykyup91.5-35.2The [facility] Physician GroupComment on above:Performed By: #### IGG #### [facility] , #### CBC, BMP, A1C WTH eA, HEPATIC, LIPID #### [place] [address] USAMCV (RBC) [Entitic vol]95.3 aJQfqjcc47.5-101The [facility] Physician GroupComment on above:Performed By: #### IGG #### [facility] , #### CBC, BMP, A1C WTH eA, HEPATIC, LIPID #### [place] [address] USAMean Corpuscular HGB Conc34.7 g/dOYpvmlc10.5-35.6The [facility] Physician GroupComment on above:Performed By: #### IGG #### [facility] , #### CBC, BMP, A1C WTH eA, HEPATIC, LIPID #### [facility] [address] [place] [address] USAMonocytes (Bld) [#/Vol]0.7 10*3/uLNormal0.0-0.8The [facility] Physician GroupComment on above:Performed By: #### IGG #### [facility] , #### CBC, BMP, A1C WTH eA, HEPATIC, LIPID #### [facility] [address] [place] [address] USAMonocytes/100 WBC (Bld)16.8 %Normal.The [facility] Physician GroupComment on above:Performed By: #### IGG #### [facility] , #### CBC, BMP, A1C WTH eA, HEPATIC, LIPID #### [facility] [address] [place] [address] USANeutrophils (Bld) [#/Vol]2.4 10*3/uLNormal1.8-7.7The [facility] Physician GroupComment on above:Performed By: #### IGG #### [facility] , #### CBC, BMP, A1C WTH eA, HEPATIC, LIPID #### [facility] [address] [place] [address] USANeutrophils/100 WBC (Bld)56.9 %Normal.The [facility] Physician GroupComment on above:Performed By: #### IGG #### [facility] , #### CBC, BMP, A1C WTH eA, HEPATIC, LIPID #### [facility] [address] [place] [address] USANRBC%0.2 /100{WBC}Normal0-0.5The [facility]ician Group Comment on above:Performed By: #### IGG #### [facility] , #### CBC, BMP, A1C WTH eA, HEPATIC, LIPID #### [facility] [address] [place] [address] USAPlatelet mean volume (Bld) [Entitic vol]8.7 fLNormal 6.6-10.1The [facility] Physician GroupComment on above:Performed By: #### IGG #### [facility] , #### CBC, BMP, A1C WTH eA, HEPATIC, LIPID #### [facility] [address] [place] [address] USAPlatelets (Bld) [#/Vol]150 10*3/hZPykwwr665-836Umk [facility] Physician GroupComment on above:Performed By: #### IGG #### [facility] , #### CBC, BMP, A1C WTH eA, HEPATIC, LIPID #### [facility] [address] [place] [address] USARBC (Bld) [#/Vol]4.92 10*6/uLNormal3.90-5.60The [facility] Physician GroupComment on above:Performed By: #### IGG #### [facility] , #### CBC, BMP, A1C WTH eA, HEPATIC, LIPID #### [facility] [address] [place] [address] USAWBC (Bld) [#/Vol]4.2 10*3/uLNormal4.1-10.5The [facility] Physician GroupComment on above:Performed By: #### IGG #### [facility] , #### CBC, BMP, A1C WTH eA, HEPATIC, LIPID #### [facility] [address] [place] [address] USACreatinine [Mass/volume] in Serum or PlasmaOrdered By: Jose Valdovinos on 35-02-6362Qvwuellxbr [Mass/Vol]Creatinine [Mass/volume] in Serum or PlasmaHigh0.70-1.30Berger HospitalEosinophils Auto (Bld) [#/Vol]Ordered By: Jose Valdovinos on 75-36-9670Wjojbgfxkit (Bld) [#/Vol]Automated eosinophil count0.0-0.45Berger HospitalEosinophils/100 WBC Auto (Bld)Ordered By: Jose Valdovinos on 28-84-3944Zsnwntfyolg/100 WBC (Bld) Automated eosinophil %.Berger HospitalErythrocyte distribution width Auto (RBC) [Ratio]Ordered By: Jose Valdovinos on 63-37-3125Rycmpkbcnhg distribution width (RBC) [Ratio]Erythrocyte distribution width [Ratio] by Automated count12.0-14.8Berger HospitalGlobulin Calc (S) [Mass/Vol]Ordered By: Jose Valdovinos on 84-64-1842Nvqywnep (S) [Mass/Vol]Serum globulin measurement by calculation (mass/volume)Berger HospitalGlucose [Mass/volume] in Serum or PlasmaOrdered By: Jose Valdovinos on 92-44-6792Fiwuxxe [Mass/Vol]Glucose [Mass/volume] in Serum or Ozzheb75-820 Berger HospitalComment on above:ADA recommended reference rangeRandom Glucose Reference Range is dependent on time and content of last meal. Glucose of more than 200 mg/dL in a nonstressed, ambulatory subject supports the diagnosisof Diabetes Mellitus.Hematocrit Auto (Bld) [Volume fraction]Ordered By: Jose Valdovinos on 79-70-7104Viwefhzvua (Bld) [Volume fraction] Hematocrit [Volume Fraction] of Blood by Automated count38.8-50.0Berger HospitalHemoglobin A1c/Hemoglobin.total in BloodOrdered By: Jose Valdovinos on 89-08-4943SzK7b (Bld) [Mass fraction]Hemoglobin A1c percentage4.3-5.6 Berger HospitalComment on above:Increased risk for diabetes: 5.7 - 6.4diabetes: >6.4glycemic control for adults with diabetes: <7.0 Hemoglobin [Mass/volume] in BloodOrdered By: Jose Valdovinos on 33-64-0254Phvyjomsbx (Bld) [Mass/Vol]Hemoglobin [Mass/volume] in Blood13.0-17.0Berger HospitalHepatic Panelon 10-94-8088Aikpiku [Mass/Vol]4.4 g/dLNormal3.5-5.7 The [facility] Physician GroupComment on above:Order Comment: FASTING.JKW Performed By: #### IGG #### [facility] , #### CBC, BMP, A1C WTH eA, HEPATIC, LIPID #### [facility] [address] [place] [address] USAAlbumin/Globulin [Mass ratio]2.2 {ratio}NormalThe [facility] Physician GroupComment on above:Order Comment: FASTING.JKWPerformed By: #### IGG #### [facility] , #### CBC, BMP, A1C WTH eA, HEPATIC, LIPID #### [place] [address] USAALP [Catalytic activity/Vol]51 U/TEeqnof95-950Bxe [facility] Physician GroupComment on above:Order Comment: FASTING.JKWPerformed By: #### IGG #### [facility] , #### CBC, BMP, A1C WTH eA, HEPATIC, LIPID #### [place] [address] USAALT [Catalytic activity/Vol]21 U/LNormal7-52The [facility] Physician GroupComment on above:Order Comment: FASTING.JKWPerformed By: #### IGG #### [facility] , #### CBC, BMP, A1C WTH eA, HEPATIC, LIPID #### [facility] [address] [place] [address] USAAST [Catalytic activity/Vol]21 U/UFaslfu93-66Mty [facility] Physician GroupComment on above:Order Comment: FASTING.JKWPerformed By: #### IGG #### [facility] , #### CBC, BMP, A1C WTH eA, HEPATIC, LIPID #### [place] [address] USABilirubin [Mass/Vol]0.5 mg/dLNormal0.3-1.0The [facility] Physician GroupComment on above:Order Comment: FASTING.JKWPerformed By: #### IGG #### [facility] , #### CBC, BMP, A1C WTH eA, HEPATIC, LIPID #### [place] [address] USABilirubin,Indirect0.4 mg/dLNormUF Health North Physician GroupComment on above:Order Comment: FASTING.JKWPerformed By: #### IGG #### [facility] , #### CBC, BMP, A1C WTH eA, HEPATIC, LIPID #### [place] [address] USABilirubin.indirect [Mass/Vol]0.10 mg/dLNormal0.03-0.18The [facility] Physician GroupComment on above:Order Comment: FASTING.JKWPerformed By: #### IGG #### [facility] , #### CBC, BMP, A1C WTH eA, HEPATIC, LIPID #### [place] [address] USAGlobulin (S) [Mass/Vol]2.0 g/dLNormUF Health North Physician GroupComment on above:Order Comment: FASTING.JKWPerformed By: #### IGG #### [facility] , #### CBC, BMP, A1C WTH eA, HEPATIC, LIPID #### [place] [address] USAProtein [Mass/Vol]6.4 g/dLNormal6.4-8.9The [facility] Physician GroupComment on above:Order Comment: FASTING.JKWPerformed By: #### IGG #### [facility] , #### CBC, BMP, A1C WTH eA, HEPATIC, LIPID #### [place] [address] USALeukocytes [#/volume] corrected for nucleated erythrocytes in Blood by Automated counOrdered By: Jose Valdovinos on 44-73-1889KAX corrected for nucl RBC Auto (Bld) [#/Vol]Leukocytes [#/volume] corrected for nucleated erythrocytes in Blood by Automated coun4.1-10.5FOhioHealth Berger Hospital Lipid Panelon 84-04-1354Luzgoikgzdq [Mass/Vol]145 mg/eBLjelfx377-879Gmg [facility] Physician GroupComment on above:Order Comment: FASTING.JKWResult Comment: Chol less than 200 mg/dl low risk Chol 201-239 mg/dl borderline risk Chol 240 mg/dl and greater high riskPerformed By: #### IGG #### [facility] , #### CBC, BMP, A1C WTH eA, HEPATIC, LIPID #### [facility] [address] [place] [address] USACholesterol in HDL [Mass/Vol]36 mg/nICjfgnd22-53Qvg [facility] Physician GroupComment on above:Order Comment: FASTING.JKWResult Comment: HDL CHOL ATP-III CLASSIFICATION Cardiovascular Risk HDL > or equal to 60 mg/dL LOW HDL < 40 mg/dL HIGHPerformed By: #### IGG #### [facility] , #### CBC, BMP, A1C WTH eA, HEPATIC, LIPID #### [facility] [address] [place] [address] USACholesterol.total/Cholesterol in HDL [Mass ratio]4.0 {ratio}Normal<5.0The [facility] Physician GroupComment on above:Order Comment: FASTING.JKWPerformed By: #### IGG #### [facility] , #### CBC, BMP, A1C WTH eA, HEPATIC, LIPID #### [facility] [address] [place] [address] USALDL Cholesterol,Ylyyehqmvj69 mg/dLNormal0-100The [facility] Physician GroupComment on above:Order Comment: FASTING.JKWResult Comment: LDL ATP III CLASSIFICATION LDL less than 100 mg/dL Optimal LDL 100-129 mg/dL Near or above optimal LDL 130-159 mg/dL Borderline high LDL 160-189 mg/dL High LDL greater than 189 mg/dL Very highPerformed By: #### IGG #### [facility] , #### CBC, BMP, A1C WTH eA, HEPATIC, LIPID #### [facility] [address] [place] [id number] USATriglyceride w/Amydaj321 mg/dLHigh0-149[facility] Physician GroupComment on above:Order Comment: FASTING.JKWResult Comment: TRIG ATP III CLASSIFICATION TRIG less than 150 mg/dL Normal TRIG 150-199 mg/dL Borderline high TRIG 200-500 mg/dL High TRIG greater than 500 mg/dL Very high Standard traceable to the Center for Disease Conrtrol and Prevention (CDC) test method.Performed By: #### IGG #### [facility] , #### CBC, BMP, A1C WTH eA, HEPATIC, LIPID #### [facility] [address] [place] [id number] USAVLDL ZSLKCIWNPVV82 mg/dLNormalThe [facility] Physician GroupComment on above:Order Comment: FASTING.JKWPerformed By: #### IGG #### [facility] , #### CBC, BMP, A1C WTH eA, HEPATIC, LIPID #### [facility] [address] [place] [id number] USALymphocytes Auto (Bld) [#/Vol]Ordered By: Jose Valdovinos on 75-28-1573Fbxqfprrccc (Bld) [#/Vol]Lymphocytes [#/volume] in Blood by Automated countLow1.00-4.8Berger HospitalLymphocytes/100 WBC Auto (Bld) Ordered By: Jose Valdovinos on 70-12-6134Qcgyhatuomg/100 WBC (Bld)Lymphocytes/100 leukocytes in Blood by Automated count.[facility] Auto (RBC) [Entitic mass]Ordered By: Jose Valdovinos on 99-24-4349JEU (RBC) [Entitic mass]MCH [Entitic mass] by Automated count27.5-35.2FChildren's Hospital of Columbus Auto (RBC) [Mass/Vol]Ordered By: Jose Valdovinos on 13-12-6350KBZJ (RBC) [Mass/Vol]MCHC [Mass/volume] by Automated count32.5-35.6FOhioHealth Berger HospitalMCV Auto (RBC) [Entitic vol]Ordered By: Jose Valdovinos on 10-19-2024 MCV (RBC) [Entitic vol]MCV [Entitic volume] by Automated count83.5-101Berger HospitalMonocytes Auto (Bld) [#/Vol]Ordered By: Jose Valdovinos on 04-53-3370Akkswffyc (Bld) [#/Vol]Automated blood monocyte count0.0-0.8Berger HospitalMonocytes/100 WBC Auto (Bld)Ordered By: Jose Valdovinos on 55-53-6265Izrqvelwz/100 WBC (Bld)Automated monocyte %.Berger HospitalNeutrophils Auto (Bld) [#/Vol]Ordered By: Jose Valdovinos on 10-19-2024 Neutrophils (Bld) [#/Vol]Neutrophils [#/volume] in Blood by Automated count 1.8-7.7FOhioHealth Berger HospitalNeutrophils/100 WBC Auto (Bld)Ordered By: Jose Valdovinos on 37-73-9745Bqzfmdpsavq/100 WBC (Bld)Automated neutrophil %. Berger HospitalNo Panel InformationOrdered By: Jose Valdovinos on 63-45-9876Pzdieamdd GFR (CKD-EPI)59.858 mL/MinBerger Hospital Pharmacy Creatinine Clearance (ChemN/AFOhioHealth Berger HospitalNucleated erythrocytes [Presence] in Blood by Automated countOrdered By: Jose Valdovinos on 85-71-8382Umtgqxhoz RBC Auto Ql (Bld)Nucleated erythrocytes [Presence] in Blood by Automated count0-0.5FOhioHealth Berger HospitalPlatelet mean volume Auto (Bld) [Entitic vol]Ordered By: Jose Valdovinos on 80-94-6198Upmyjfxh mean volume (Bld) [Entitic vol]Platelet mean volume [Entitic volume] in Blood by Automated count6.6-10.1FOhioHealth Berger HospitalPlatelets Auto (Bld) [#/Vol]Ordered By: Jose Valdovinos on 84-21-1434Miesosczz (Bld) [#/Vol]Platelets [#/volume] in Blood by Automated lagev957-657RddlqxzgiBerger Hospital Potassium [Moles/volume] in Serum or PlasmaOrdered By: Jose Valdovinos on 10-19-2024 Potassium [Moles/Vol]Potassium [Moles/volume] in Serum or Plasma3.5-5.1FOhioHealth Berger HospitalProtein [Mass/volume] in Serum or PlasmaOrdered By: Jose Valdovinos on 97-33-0666Aoprkkq [Mass/Vol]Protein [Mass/volume] in Serum or Plasma 6.4-8.9Berger HospitalRBC Auto (Bld) [#/Vol]Ordered By: Jose Valdovinos on 09-92-5129FOK (Bld) [#/Vol]Erythrocytes [#/volume] in Blood by Automated count3.90-5.60OhioHealth Berger Hospitalerum or plasma albumin/globulin mass ratioOrdered By: Jose Valdovinos on 80-48-5240Jpwznjk/Globulin [Mass ratio]Serum or plasma albumin/globulin mass ratioOhioHealth Berger Hospitalerum or plasma anion gap determinationOrdered By: Jose Valdovinos on 16-79-8281Ixlvf gap [Moles/Vol]Serum or plasma anion gap determination6.0-15.0 [facility] Berger Hospitalerum or plasma non-glucuronidated bilirubin measurement (mass/volume)Ordered By: Jose Valdovinos on 11-02-2992Xlbmwxlem.indirect [Mass/Vol]Serum or plasma non-glucuronidated bilirubin measurement (mass/volume)OhioHealth Berger Hospitalerum or plasma total cholesterol/high density lipoprotein (HDL) cholesterol mass ratOrdered By: Jose Valdovinos on 70-51-0583Vlucwrhiuaq.total/Cholesterol in HDL [Mass ratio]Serum or plasma total cholesterol/high density lipoprotein (HDL) cholesterol mass rat<5.0 [facility] Berger Hospitalodium [Moles/volume] in Serum or PlasmaOrdered By: Jose Valdovinos on 08-48-4742Fgykri [Moles/Vol]Sodium [Moles/volume] in Serum or Wgxgph556-238HrgoazsorBerger HospitalThyroid Stimulating Hormoneon 84-76-1907SMJ Qn2.46 m[IU]/LNormal0.45-5.33The [facility] Physician GroupComment on above:Order Comment: FASTING.JKWResult Comment: PERFORMED BY: [place] [address] PATHOLOGIST PRODUCTION SKI REPAIRER KRISTA BRUNER M.D.Performed By: #### IGG #### [facility] , #### CBC, BMP, A1C WTH eA, HEPATIC, LIPID #### [place] [address] USAThyrotropin [Units/volume] in Serum or PlasmaOrdered By: Jose Obgustabor on 82-87-0741RAN QnThyrotropin [Units/volume] in Serum or Plasma 0.45-5.33Berger HospitalThyroxine (T4) Totalon 10-50-1757J0 [Mass/Vol]8.70 ug/dLNormal5.39-11.82The [facility] Physician GroupComment on above:Order Comment: FASTING.JKWPerformed By: #### IGG #### [facility] , #### CBC, BMP, A1C WTH eA, HEPATIC, LIPID #### [facility] [address] [place], [place] [address] USAThyroxine (T4) [Mass/volume] in Serum or PlasmaOrdered By: Jose Oberer on 20-37-4719X8 [Mass/Vol]Thyroxine (T4) [Mass/volume] in Serum or Plasma5.39-11.82Berger HospitalTriglyceride [Mass/volume] in Serum or PlasmaOrdered By: Jose Oberer on 39-03-0946Mmojiwyecxyc [Mass/Vol] Triglyceride [Mass/volume] in Serum or PlasmaHigh0-149Berger HospitalComment on above:TRIG ATP III CLASSIFICATIONTRIG less than 150 mg/dL NormalTRIG 150-199 mg/dL Borderline highTRIG 200-500 mg/dL High TRIG greater than 500 mg/dL Very highStandard traceable to the Center for Disease Conrtrol and Prevention (CDC) test method.Urea nitrogen [Mass/volume] in Serum or Plasma Ordered By: Jose Valdovinos on 09-23-2276Noga nitrogen [Mass/Vol]Urea nitrogen [Mass/volume] in Serum or Plasma7Berger HospitalVitamin B12 on 87-65-9701Oqwodkwiv (Vitamin B12) [Mass/Vol]344 pg/rNXiveli718-705Njw [facility] Physician GroupComment on above:Order Comment: FASTING.JKWPerformed By: #### IGG #### [facility] , #### CBC, BMP, A1C WTH eA, HEPATIC, LIPID #### [facility] [address] StreetVitamin B12 ser/plasOrdered By: Jose Valdovinos on 10-19-2024 Cobalamin (Vitamin B12) [Mass/Vol]Vitamin B12 ser/bucv230-365ZhwmpdsvvBerger HospitalWBC Auto (Bld) [#/Vol]Ordered By: Jose Valdovinos on 74-30-0096CMU (Bld) [#/Vol]Leukocytes [#/volume] in Blood by Automated count4.1-10.5FOhioHealth Berger HospitalCNPNon 17-40-0405LSUJPcxfnvhyf (NEADFV) MARY JIMENEZ ([id number]) 1960 M Date Time Provider Department 10/06/24 LOYDA STEELE NEADFV During your visit today, we recorded the following information about you: Sidra Duval 10/06/2024 8:53 AM Signed Mary from [facility] calling regarding pt injections - needs to speak with someone regarding what procedures pt has had done - would like to speak with someone to confirm - #[phone] Christine Gutierrez PA-C 10/06/2024 1:03 PM Signed I called return phone number on 10/06/2024 at 12:51 PM. Underwent Revision L4-pelvis instrumented fusion on 12/31/[address] Steele. They are interested in injection history. Requested operative report from C7-T1 interlaminar injection with Dr. Bhandari be faxed to them. [phone] Note faxed. 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 Left vm for patient to give office a call back to go through questions. [employer] message also sent to patient and informed he can respond through message as well. Anni Douglas RN 09/21/2024 2:59 PM Signed Left message on voicemail for patient to call office back regarding Post injection call. Injection was done on 09/15. [employer] message was already sent on 09/17 Allergies As of Date: 09/17/2024 Noted Allergy Reaction PENICILLINS 06/07/2014 10 - Anaphylaxis LATEX 09/04/2016 2 - Rash Date Reviewed: 09/15/2024 Reviewed by: Vicente Spangler RN - Fully Assessed Reason for Visit: [...] with radiculopathy [M50.*09/15/2024 Encount (more content not included)...NormalRiverside Methodist Hospital1000019on [id number] ID: [id number] Author: VICENTE SPANGLER RN Service: ? Author Type: Registered Nurse Type: [id number] Filed: 09/15/2024 09:55 Note Text: [facility] Post-Procedure Pain Diary- Group 3 [...] Improvement 0 20 40 60 80 100 Comments:NormalRiverside Methodist HospitalCNPNon 81-75-8857FFDOBcnnxvjqb (NIQ) MARY JIMENEZ ([id number]) 1960 M Date Time Provider Department 09/15/24 GUILLAUME BHANDARI During your visit today, we recorded the following information about you: Kristi Rehman 09/15/2024 1:14 PM Signed Recvd: Med hold clearance DOS 09/12/24 Allergies As of Date: 09/15/2024 Noted Allergy Reaction PENICILLINS 06/07/2014 10 - Anaphylaxis LATEX 09/04/2016 2 - Rash Date Reviewed: 09/15/2024 Reviewed by: Vicente Spangler, TONY - Fully Assessed Prescriptions as of 09/16/2024 [...] [M50.*09/15/2024 Encounter Status:Closed by ANNI DOUGLAS on 09/16/24NoMiami [facility] PHYSICALon 22-72-7869HLQIAWT PHYSICALHNO ID: [id number] Author: GUILLAUME BHANDARI DO Service: Physical Medicine AND Rehabilitation Author Type: Fellow Type: H&P Filed: 09/15/2024 09:32 Note Text: Attestation signed by Guillaume Bhandari DO at 09/15/2024 9:32 AM Attending Note: Maldonado findings confirmed. Discussed with the fellow and the patient. All information in the note above was confirmed by me and edited as necessary for accurate information. Plan as outlined. PROCEDURAL HISTORY AND PHYSICAL EXAM SERVICE DATE [...] explicit agreement by patie (more content not included)...NormalWVUMedicine Harrison Community HospitalTORY PHYSICALHNO ID: [id number] Author: GWENDOLYN SPIVEY APRN.SHEA Service: ? Author Type: Nurse Practitioner [...] with radiculopathy [M50.10] Medication and Non-Pharmacologic VTE Prophylaxis/Anticoagulants VTE Prophylaxis: N/A Provisional Diagnosis/Treatment Plan: Procedure(s) (LRB): CERVICAL EPIDURAL BLOCK W/INJECTION(S) NON NEUROLYTIC SUBSTANCE(S) W/IMAGE GUIDANCE (Left) SIGNATURE: Gwendolyn Spivey APRN.CNP PATIENT NAME: Mary Jimenez DATE: 09/15/2024 TIME: 9:09 AMNormalRiverside Methodist HospitalNVALLEY VIEW [facility] PROGon 95-50-8913WHCWCVK RICKI ID: [id number] Author: VICENTE SPANGLER RN Service: ? Author Type: Registered Nurse Type: Nursing Progress Note Filed: 09/15/2024 10:56 Note Text: Patient went to the restroom and walked out of [facility] without receiving his DC instructions and nurse walking him out. Ex- was here to take him home, Nupur RN spoke with her prior to him leaving. Attempted to call patients cell, it will not take calls, called ex- cell and it went to voice mail. Charge nurse sent patient a [employer] message and information given to NM to reach out again and have DC instructions mailed to the patient. Patient has had back injections previously with Dr. Bhandari.NormalRiverside Methodist HospitalOPERATIVE NOon 57-90-9886NNBPUPNIB NOHNO ID: [id number] Author: GUILLAUME BHANDARI DO Service: Physical Medicine AND Rehabilitation Author Type: Physician Type: Operative Report Filed: 09/15/2024 10:28 Note Text: PROCEDURE REPORT Surgery/Procedure Date: September 15, 2024 Interventionalist: Guillaume Bhandari DO Procedure(s): C7-T1 interlaminar epidural steroid injection Pre-Op/Pre-Procedure Diagnosis: Cervical disc disorder with radiculopathy Post-Op Diagnosis: same SUBJECTIVE: Mary Jimenez is a 64 year old male who presents to [facility] ambulatory surgery center for a Cervical epidural steroid injection. 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 64 year old male [...] 2 mg IV, given at 0936. See [facility] archival for Conscious Sedation Record and informed [...] Lateral view seemed to be a better schedule clerk of depth in this case. ASSESSMENT: Pre Procedure diagnosis: Cervical disc disorder with radiculopathy Post-Procedure diagnosis: same Pre Procedure Pain Level: same as above Post Procedure Pain Level: As documented in nursing notes and paper chart Purposeful response to verbal or tactile stimulation: Yes PLAN: Patient is to complete post-procedure pain diary and follow up with the ordering provider. Mary Prieto Barbara was transferred to the recovery room and is to be discharged home in stable condition. Post op instructions reviewed with patient. Guillaume Bhandari, [facility] Bing, MD, Cancer CenterPNon 40-99-3397RHZQ Telephone (SPNMMN) MARY JIMENEZ ([id number]) 1960 M Date Time Provider Department 09/03/24 GUILLAUME BHANDARI SPNMMN During your visit today, [...] call from nurse; requesting call back; ph. [phone] Li Rosenbaum LPN 09/08/2024 3:20 PM Signed [...] need to talk to him. Thank you BongCaitlyn 09/09/2024 10:58 AM Signed Patient called; returning call from nurse; requesting call back. Reached out to nursing, Anni was not available Please call. ph. [phone] Anni Douglas, TONY 09/09/2024 11:08 AM Signed Spoke to patient [...] by mouth once chelsea (more content not included)...[facility] 92-72-3358DVYPMpxbgxrlq (SPNMMN) MARY JIMENEZ ([id number]) 1960 M Date Time Provider Department 09/02/24 GUILLAUME BHANDARI [facility] During your visit today, we recorded the following information about you: Li Rosenbaum LPN 09/02/2024 2:19 PM Signed [employer] message sent to patient with Procedure Instructions Allergies As of Date: 09/02/2024 Noted Allergy Reaction PENICILLINS 06/07/2014 10 - Anaphylaxis LATEX 09/04/2016 2 - Rash Date Reviewed: 07/20/2024 Reviewed by: Rhonda Hay MA - Fully Assessed Reason for Visit: Preperations for Procedure [Other] Cmt: Mychart Prescriptions as of 09/02/2024 - methylPREDNISolone (MEDROL [...] 05/13/2022 Encounter Status:Closed by LI ROSENBAUM on 09/02/24NoCincinnati VA Medical CenterHemoglobinon 41-25-7433Lcyyztbmim (Bld) [Mass/Vol]16.1 g/dLNormal 13.0-17.0The [facility] Physician GroupComment on above:Result Comment: PERFORMED BY: [place] [address] PATHOLOGIST PRODUCTION SKI REPAIRER KRISTA BRUNER M.D.Performed By: #### IGG #### [facility] , #### CBC, BMP, A1C WTH eA, HEPATIC, LIPID #### [facility] [address] [place] [address] USAHemoglobin [Mass/volume] in BloodOrdered By: Rosey Dubose on 38-04-4057Kwxzehtwmw (Bld) [Mass/Vol]Hemoglobin [Mass/volume] in Blood 13.0-17.0Berger HospitalPSA Total (Not a Screen)on 08-31-2024 PSA Total (Not a Screen)0.130 ng/mLNormal0.000-4.000The [facility] Physician GroupComment on above:Result Comment: Serial tumor marker results determined by assays using different manufacturers or methods may not be comparable. [facility] Laboratory milling machinist and method: Wikidata DXI, CHEMILUMINESCENT IMMUNOASSAY. PERFORMED BY: [place] [address] PATHOLOGIST PRODUCTION SKI REPAIRER KRISTA BRUNER M.D.Performed By: #### IGG #### [facility] , #### CBC, BMP, A1C WTH eA, HEPATIC, LIPID #### [facility] [address] [place], [place] [address] USAProstate specific Ag [Mass/volume] in Serum or Plasma Ordered By: Rosey Dubose on 53-33-7040Hcfnmdks specific Ag [Mass/Vol]Prostate specific Ag [Mass/volume] in Serum or Plasma0.000-4.000Berger HospitalComment on above:Serial tumor marker results determined by assays using different manufacturers or methods may not be comparable.[facility] milling machinist and method:Wikidata DXI, CHEMILUMINESCENT IMMUNO ASSAY.Testosteroneon 06-88-7820Ppocgtesllvw2.90 ng/mLNormal1.75-7.81The [facility] Physician GroupComment on above:Result Comment: PERFORMED BY: [place] [address] PATHOLOGIST PRODUCTION SKI REPAIRER KRISTA BRUNER M.D.Performed By: #### IGG #### [facility] , #### CBC, BMP, A1C WTH eA, HEPATIC, LIPID #### [place] [id number] USATestosterone [Mass/volume] in Serum or PlasmaOrdered By: Rosey Dubose on 39-02-4614Klccthzpkbox [Mass/Vol]Testosterone [Mass/volume] in Serum or Plasma1.75-7.81Berger HospitalCNPNon 23-39-1021VOMD Telephone (NIQ) MARY JIMENEZ ([id number]) 1960 M Date Time Provider Department 08/25/24 GUILLAUME BHANDARI During your visit today, we recorded the following information about you: Zachery LincolnbirdLela 08/25/2024 11:43 AM Signed Pt called; says his ride cancelled on him this morning; he cannot come for the injection procedure today. Pt wants to reschedule his injection for carmen. Transferred patient to [place] scheduling team at ph: [phone] Allergies As of Date: 08/25/2024 Noted Allergy [...] 05/13/2022 Encounter Status:Closed by LELA TORRES on 08/25/24NormalCleveland [facility]ly [facility] Health CareCNWAon 29-30-7932ZLFOUhwfuj TextNormalCleveland [facility] 88-45-6097TCPBTnxewf TextNormalCleveland [facility] Health CareCNon 11-03-0731CUTLWgxjmoihf (SPNMMN) BARBARA,MARY Prieto ([id number]) 1960 M Date Time Provider Department 08/10/24 GUILLAUME BHANDARI SPNMMN During your visit today, [...] one week before; requesting call back; ph. [phone] Li Rosenbaum LPN 08/15/2024 4:45 PM Signed Phoned patient and spoke with patient to confirm appointment for Mary Jimenez for spine procedure on 08/25/24. Patient notified that [place] will call patient the night before with the time to arrive for injection. Patient verbalized understanding of the following: -Provided education on spine procedure and answered questions related to spine injection procedure. -Delinquent Tax Collection Assistant is needed to drive patient home: Yes, [...] Dr. Rodriges is the prescribing provider at [facility] ph: [phone]. Taking aspirin 81mg: No Any open wounds/sores?: No Taking Antibiotics?: No Patient given number [phone], spine injections schedulers, if there is any [...] PM Signed Will call Dr. Rodriges at [facility] to get a fax number to send a clearance letter. Li Rosenbaum LPN 08/16/2024 9:[address] Rodriges's office at [phone]. Pit Furnace Operator stated the patient see's Dr. Carson and he doesn't normally clear patient's to be off of medications before procedure's he leaves that up to provider performing procedure and patient. Will inform C.C. Anni Sarabia, RN 08/16/2024 2:52 PM Signed I have created a letter and faxed to Dr. Kg Carson at . Anni Douglas, RN 08/17/2024 9:00 AM Signed Spoke to [...] to call office back or to read [employer] message Anni Douglas RN 08/18/2024 10:01 AM Signed Left message on voicemail for patient to call office back advising that we needed to hear back from provider today about his Plavix and stopping today. Unfortunately if you have taken or they do not respond will have to cancel the injection. Anni Douglas RN (more content not included)...NormalSelect [facility] LUMBAR SPINE WO IVCONon 63-98-8687NZ LUMBAR SPINE WO IVCON* * *Final Report* * * DATE OF EXAM: Aug 09 2024 12:05PM [facility] 0508 - CT LUMBAR SPINE WO [...] are 5 lumbar-type vertebrae. Anatomic variant: None. Chemist (topogram) images: Artifact is visible from posterior [...] L3-L4: Minimal disc bulging. Moderate right and bsqr-ua-hjuqigcq left facet degenerative change. Canal remains grossly [...] any questions regarding this interpretation, please call [phone]. If you are unable to reach us at the number above, please feel free to contact [facility] eRadiology at [phone]. [id number] Methodist HospitalCT Lumbar spine WO contraston 43-49-0826WAXEFFCPME: Grossly stable appearing spinal alignment. Similar lucency [...] any questions regarding this interpretation, please call [phone]. If you are unable to reach us at the number above, please feel free to contact [facility]Radiology at [phone].DIVISION OF RADIOLOGY* * *Final Report* * * DATE OF EXAM: Aug 09 2024 12:05PM [facility] 0508 - CT LUMBAR SPINE WO [...] are 5 lumbar-type vertebrae. Anatomic variant: None. Chemist (topogram) images: Artifact is visible from posterior [...] L3-L4: Minimal disc bulging. Moderate right and vmsa-uu-vodupjvh left facet degenerative change. Canal remains grossly [...] lucency surrounding the S1 fixation. DIVISION OF RADIOLOGYProvider, Psychiatric Imaging [place] - 08/09/2024 * * *Final Report* * * DATE OF EXAM: Aug 09 2024 12:05PM [facility] 0508 - CT LUMBAR SPINE WO [...] are 5 lumbar-type vertebrae. Anatomic variant: None. Chemist (topogram) images: Artifact is visible from posterior [...] L3-L4: Minimal disc bulging. Moderate right and ynbf-ij-wcjaxmbk left facet degenerative change. Canal remains grossly [...] any questions regarding this interpretation, please call [phone]. If you are unable to reach us at the number above, please feel free to contact [facility] eRadiology at [phone]. [facility] HospitalRadiology Study observation (narrative)[facility] Lumbar spine WO contrastOrdered By: Ccf Provider on 57-75-7502Nczlbengt ClinicCNPNon 83-59-0761NFKDHiqarqlxa (SPNMMN) MARY JIMENEZ ([id number]) 1960 M Date Time Provider Department 07/27/24 GUILLAUME BHANDARI SPNMMN During your visit today, we recorded the following information about you: Li Rosenbaum LPN 07/27/2024 11:47 AM Signed [employer] message sent to patient with procedure instructions. Allergies As of Date: 07/27/2024 Noted Allergy Reaction PENICILLINS 06/07/2014 10 - Anaphylaxis LATEX 09/04/2016 2 - Rash Date Reviewed: 07/20/2024 Reviewed by: Rhonda Hay MA - Fully Assessed Reason for Visit: Preperations for Procedure [Other] Cmt: Marly Prescriptions as of 07/27/2024 - methylPREDNISolone (MEDROL [...] 05/13/2022 Encounter Status:Closed by LI ROSENBAUM on 07/27/24[facility] 42-70-1508ETIIDcgrcq Visit (NSFRVW) MARY JIMENEZ ([id number]) 1960 L[place] Date Time Provider Department 07/20/24 1:00 PM [...] of life. 50th percentile (more content not included)...Normal [facility] 57-99-4537NIYIQmqfdkhir (NSFRVW) MARY JIMENEZ ([id number]) 1960 M Date Time Provider Department 07/11/24 LOYDA STEELE NSFRVW During your visit today, [...] to go for his appointment. Patient # [id number] Christine Gutierrez PA-C 07/11/2024 9:58 AM Signed Imaging viewable, should be okay for appointment. Allergies As of Date: 07/11/2024 Noted Allergy Reaction PENICILLINS 06/07/2014 10 - Anaphylaxis LATEX 09/04/2016 2 - Rash Date Reviewed: 05/13/2022 Reviewed by: Roro Ryan, TONY - Fully Assessed Reason for Visit: Patient Question [5628] Prescriptions as of 07/11/2024 - methylPREDNISolone (MEDROL [...] 05/13/2022 Encounter Status:Closed by CHRISTINE GUTIERREZ on 07/11/24[facility] on 14-36-6822DJCVXihuyxnpe (NEADFV) MARY JIMENEZ ([id number]) 1960 M Date Time Provider Department 06/27/24 LOYDA STEELE During your visit today, we recorded the following information about you: Yolanda Conde 06/27/2024 3:21 PM Signed MRI report scanned to [facility] Allergies As of Date: 06/27/2024 Noted Allergy [...] 05/13/2022 Encounter Status:Closed by GRETA NUNEZ on 07/05/24[facility] SPINE CERVICAL W/O CONTRASTon 06-17-2024 Exam Date/Time: 06/15/2024 17:26 EST Reason for [...] Transcribed by: MARGAUX Technologist: TYE Technical Comments NoneFTMCRadiology, Radiologist, - 06/17/2024 Exam Date/Time: 06/15/2024 17:26 EST [...] by: MARGAUX Technologist: TYE Technical Comments None [facility] SPINE CERVICAL W/O CONTRASTOrdered By: Radiologist Radiology on 98-41-9506NEEXWright Memorial Hospital Work Phone: [facility] Spine Cervical w/o Contraston 33-40-5679GLB Spine Cervical w/o ContrastExam Date/Time: 06/15/2024 17:26 EST Reason for Exam: [...] Transcribed by: MARGAUX Technologist: TYE Technical Comments NoneNormalFishMeritus Medical Center SPINE CERVICAL W/O CONTRASTon 28-67-9225Zltmbuxqy Study observation (narrative)NOMS HealthcareCNPNon 69-58-2990NVWPJadailpkm (NEADFV) MARY JIMENEZ ([id number]) 1960 Date Time Provider Department 05/06/24 LOYDA STEELEDIANAFV During your visit today, we recorded the following information about you: Yolanda Conde 05/06/2024 1:40 PM Signed Pato Jackson MRI Spine lumbar report scanned to [facility] Allergies As of Date: 05/06/2024 Noted Allergy [...] 05/13/2022 Encounter Status:Closed by YOLANDA CONDE on 11/30/24[facility] 68-74-3662TNQTWujemtrdh (NSFRVW) MARY JIMENEZ ([id number]) 1960 M Date Time Provider Department 05/05/24 [...] Visit: Patient Question [1477] Prescriptions as of 10/12/2024 - methylPREDNISolone (MEDROL [...] 05/13/2022 Encounter Status:Closed by NAREN BEAR on 10/12/24[facility] A1C with Estimated Average Gluon 47-82-2273Mrjppmz [Mass/Vol]108 mg/dLNoAtrium Health Kings Mountain Physician GroupComment on above:Result Comment: PERFORMED BY: [place] [address] PATHOLOGIST PRODUCTION SKI REPAIRER MARJORIE WAYNE M.D.Performed By: #### IGG #### [facility] , #### CBC, BMP, A1C WTH eA, HEPATIC, LIPID #### [facility] [address] [place] [address] OTPPeM0u (Bld) [Mass fraction]5.4 %Normal4.3-5.6The [facility] Physician [facility] Community HospitalComment on above:Result Comment: Increased risk for diabetes: 5.7 - 6.4 diabetes: >6.4 glycemic control for adults with diabetes: <7.0Performed By: #### IGG #### [facility] , #### CBC, BMP, A1C WTH eA, HEPATIC, LIPID #### [facility] [address] [place] [id number] USAAlanine aminotransferase [Enzymatic activity/volume] in Serum or PlasmaOrdered By: Jose Valdovinos on 38-07-0510FQW [Catalytic activity/Vol] 23 U/LNormal7-52Berger HospitalComment on above:Performed By: #### IGG #### [facility] , #### CBC, BMP, A1C WTH eA, HEPATIC, LIPID #### [facility] [address] [place] [id number] USAALT [Catalytic activity/Vol]Alanine aminotransferase [Enzymatic activity/volume] in Serum or PlasmaBerger HospitalAlbumin [Mass/volume] in Serum or Plasma by Bromocresol green (BCG) dye binding methoOrdered By: Jose Valdovinos on 37-02-1844Ikxcuef BCG dye [Mass/Vol]4.3 g/dL3.5-5.7FOhioHealth Berger HospitalAlbumin BCG dye [Mass/Vol]Albumin [Mass/volume] in Serum or Plasma by Bromocresol green (BCG) dye binding metho 3.5-5.7FOhioHealth Berger HospitalAlkaline phosphatase [Enzymatic activity/volume] in Serum or PlasmaOrdered By: Jose Valdovinos on 10-95-2776HKT [Catalytic activity/Vol]54 U/WFjahoa09-154Yacuogf[address] Comment on above:Performed By: #### IGG #### [facility] , #### CBC, BMP, A1C WTH eA, HEPATIC, LIPID #### [facility] [address] [place] [id number] USAALP [Catalytic activity/Vol]Alkaline phosphatase [Enzymatic activity/volume] in Serum or Datqlo69-840Hiawerdye30 Harris StreetAspartate aminotransferase [Enzymatic activity/volume] in Serum or Plasma Ordered By: Jose Valdovinos on 35-05-1424AEI [Catalytic activity/Vol]19 U/LNormal [address] StreetComment on above:Performed By: #### IGG #### [facility] , #### CBC, BMP, A1C WTH eA, HEPATIC, LIPID #### [facility] [address] [place] [id number] USAAST [Catalytic activity/Vol]Aspartate aminotransferase [Enzymatic activity/volume] in Serum or Bizbys67-00IahmjqyzcBerger HospitalAutomated basophil %Ordered By: Jose Valdovinos on 22-01-7378Lnialcvpu/100 WBC (Bld)1.3 %Normal.Berger HospitalComment on above:Performed By: #### IGG #### [facility] , #### CBC, BMP, A1C WTH eA, HEPATIC, LIPID #### [facility] [address] [place] [address] USAAutomated basophil countOrdered By: Jose Oberer on 54-19-9061Ivwsclazk (Bld) [#/Vol]0.1 10*3/uLNormal0.0-0.2FOhioHealth Berger HospitalComment on above:Result Comment: PERFORMED BY: [place] [address] PATHOLOGIST PRODUCTION SKI REPAIRER MARJORIE WAYNE M.D.Performed By: #### IGG #### [facility] , #### CBC, BMP, A1C WTH eA, HEPATIC, LIPID #### [facility] [address] [place] [address] USAAutomated blood monocyte countOrdered By: Jose Oberer on 52-20-5753Umebfkrel (Bld) [#/Vol]0.5 10*3/uLNormal0.0-0.8Berger HospitalComment on above:Performed By: #### IGG #### [facility] , #### CBC, BMP, A1C WTH eA, HEPATIC, LIPID #### [facility] [address] [place] [address] USAAutomated eosinophil %Ordered By: Jose Oberer on 69-31-2761Tcyslgjkjtu/100 WBC (Bld)3.5 %Normal.[facility] Comment on above:Performed By: #### IGG #### [facility] , #### CBC, BMP, A1C WTH eA, HEPATIC, LIPID #### [facility] [address] [place] [address] USAAutomated eosinophil countOrdered By: Jose Oberer on 39-00-5436Ljspaeywuyu (Bld) [#/Vol]0.2 10*3/uLNormal0.0-0.45Ber[facility] HospitalComment on above:Performed By: #### IGG #### [facility] , #### CBC, BMP, A1C WTH eA, HEPATIC, LIPID #### [facility] [address] [place] [address] USAAutomated monocyte %Ordered By: Jose Valdovinos on 05-02-2024 Monocytes/100 WBC (Bld)10.1 %Normal.[facility]ger HospitalComment on above:Performed By: #### IGG #### [facility] , #### CBC, BMP, A1C WTH eA, HEPATIC, LIPID #### [facility] [address] [place] [address] USAAutomated neutrophil %Ordered By: Jose Valdovinos on 31-09-7731Kcdzxcrgfqy/100 WBC (Bld)66.5 %Normal.[facility] HospitalComment on above:Performed By: #### IGG #### [facility] , #### CBC, BMP, A1C WTH eA, HEPATIC, LIPID #### [facility] [address] [place] [address] USABasic Metabolic Panelon 04-75-2626LOM/1.73 sq M.predicted MDRD (S/P/Bld) [Vol rate/Area]mL/min/{1.73_m2}NormalThe [facility] Physician GroupComment on above:Performed By: #### IGG #### [facility] , #### CBC, BMP, A1C WTH eA, HEPATIC, LIPID #### [facility] [address] [place] [address] USABasophils Auto (Bld) [#/Vol]Ordered By: Joes Valdovinos on 57-66-9420Ocubddwvl (Bld) [#/Vol]Automated basophil count0.0-0.2FOhioHealth Berger HospitalBasophils/100 WBC Auto (Bld)Ordered By: Jose Valdovinos on 98-12-1235Xyapaopuw/100 WBC (Bld)Automated basophil %.[facility]ger HospitalBilirubin.direct [Mass/volume] in Serum or PlasmaOrdered By: Jose Valdovinos on 11-71-1876Oelbesonv.direct [Mass/Vol]0.10 mg/dL0.03-0.18FOhioHealth Berger HospitalBilirubin.direct [Mass/Vol]Bilirubin.direct [Mass/volume] in Serum or Plasma0.03-0.18FOhioHealth Berger HospitalBilirubin.total [Mass/volume] in Serum or PlasmaOrdered By: Jose Valdovinos on 58-11-5586Ryiglolru [Mass/Vol]0.6 mg/dLNormal0.3-1.0Ber[facility] HospitalComment on above:Performed By: #### IGG #### [facility] , #### CBC, BMP, A1C WTH eA, HEPATIC, LIPID #### [facility] [address] [place] [address] USABilirubin [Mass/Vol]Bilirubin.total [Mass/volume] in Serum or Plasma0.3-1.0[facility] HospitalBlood estimated average glucose determination by estimation from glycated hemoglobinOrdered By: Jose Valdovinos on 39-51-9247Ctkfcpz glucose Estimated from glycated hemoglobin (Bld) [Mass/Vol]Glucose mean value [Mass/volume] in Blood Estimated from glycated hemoglobinBerger HospitalCalcium [Mass/volume] in Serum or PlasmaOrdered By: Jose Valdovinos on 58-39-5400Nsapigz [Mass/Vol]8.8 mg/dLNormal 8.6-10.3FOhioHealth Berger HospitalComment on above:Performed By: #### IGG #### [facility] , #### CBC, BMP, A1C WTH eA, HEPATIC, LIPID #### [facility] [address] [place] [address] USACalcium [Mass/Vol]Calcium [Mass/volume] in Serum or Plasma 8.6-10.3FOhioHealth Berger HospitalCarbon dioxide, total [Moles/volume] in Serum or PlasmaOrdered By: Jose Valdovinos on 83-72-3904UG1 [Moles/Vol]29.1 mmol/L Hehles38.0-31.0Berger HospitalComment on above:Performed By: #### IGG #### [facility] , #### CBC, BMP, A1C WTH eA, HEPATIC, LIPID #### [facility] [address] [place] [address] USACO2 [Moles/Vol]Carbon dioxide, total [Moles/volume] in Serum or Eratig94.0-31.0Berger HospitalChloride [Moles/volume] in Serum or PlasmaOrdered By: Jose Valdovinos on 11-35-1720Rxjiernw [Moles/Vol]103 mmol/FEerbpy49-478Mohhxnexa[address] [place], [place] [address]Comment on above:Performed By: #### IGG #### [facility] , #### CBC, BMP, A1C WTH eA, HEPATIC, LIPID #### [facility] [address] [place] [address] USAChloride [Moles/Vol]Chloride [Moles/volume] in Serum or Whvvnh87-878Rbobfatwd[address] [place], [place] [address]Cholesterol [Mass/volume] in Serum or PlasmaOrdered By: Jose Valdovinos on 26-10-3238Sohfclcwtym [Mass/Vol]140 mg/dL Hwdlws152-282Bmxsakxxd[address] [place], [place] [address]Comment on above:Chol less than 200 mg/dl low riskChol 201-239 mg/dl borderline riskChol 240 mg/dl and greater high riskResult Comment: Chol less than 200 mg/dl low risk Chol 201-239 mg/dl borderline risk Chol 240 mg/dl and greater high riskPerformed By: #### IGG #### [facility] , #### CBC, BMP, A1C WTH eA, HEPATIC, LIPID #### [facility] [address] [place] [address] USACholesterol [Mass/Vol]Cholesterol [Mass/volume] in Serum or Vyuvod360-397ZsktdgspbBerger HospitalComment on above:Chol less than 200 mg/dl low riskChol 201-239 mg/dl borderline riskChol 240 mg/dl and greater high riskCholesterol in HDL [Mass/volume] in Serum or PlasmaOrdered By: Jose Valdovinos on 09-79-8849Lremmvhahmx in HDL [Mass/Vol]Serum or plasma high density lipoprotein (HDL) cholesterol qfictpbotws96-42PpvxyzockBer[facility] Hospital Comment on above:HDL CHOL ATP-III CLASSIFICATION Cardiovascular RiskHDL > or equal to 60 mg/dL LOWHDL < 40 mg/dL HIGHCholesterol in LDL Calc [Mass/Vol] Ordered By: Jose Valdovinos on 04-10-0664Lotmyhgjekf in LDL [Mass/Vol]61 mg/dL0 Berger HospitalComment on above:LDL ATP III CLASSIFICATIONLDL less than 100 mg/dL OptimalLDL 100-129 mg/dL Near or above apywfoaXJW429-030 mg/dL Borderline highLDL 160-189 mg/dL HighLDL greater than 189 mg/dL Very high Cholesterol in LDL [Mass/Vol]Cholesterol in LDL [Mass/volume] in Serum or Plasma by calculationBerger HospitalComment on above:LDL ATP III CLASSIFICATIONLDL less than 100 mg/dL OptimalLDL 100-129 mg/dL Near or above rstirhcTDP862-315 mg/dL Borderline highLDL 160-189 mg/dL HighLDL greater than 189 mg/dL Very highCholesterol in VLDL Calc [Mass/Vol]Ordered By: Jose Valdovinos on 48-36-0401Ebjjadkyhlo in VLDL [Mass/Vol]40 mg/dLBerger HospitalCholesterol in VLDL [Mass/Vol]Cholesterol in VLDL [Mass/volume] in Serum or Plasma by calculationBerger HospitalComplete Blood Count Auto Diffon 97-99-6493Tyml Corpuscular HGB Conc34.5 g/hJQkcqhs48.5-35.6The [facility] Physician GroupComment on above:Performed By: #### IGG #### [facility] , #### CBC, BMP, A1C WTH eA, HEPATIC, LIPID #### [facility] [address] [place] [address] USANRBC%0.0 /100{WBC}Normal0-0.5[facility] Comment on above:Performed By: #### IGG #### [facility] , #### CBC, BMP, A1C WTH eA, HEPATIC, LIPID #### [facility] [address] [place] [address] USACreatinine [Mass/volume] in Serum or PlasmaOrdered By: Jose Valdovinos on 42-58-1913Pafrhtbuuh [Mass/Vol]1.18 mg/dLNormal0.70-1.30Berger HospitalComment on above:Performed By: #### IGG #### [facility] , #### CBC, BMP, A1C WTH eA, HEPATIC, LIPID #### [facility] [address] [place] [id number] USACreatinine [Mass/Vol]Creatinine [Mass/volume] in Serum or Plasma0.70-1.30Berger HospitalEosinophils Auto (Bld) [#/Vol] Ordered By: Jose Valdovinos on 84-21-0576Bmwmarsccjn (Bld) [#/Vol]Automated eosinophil count0.0-0.45Ber[facility] HospitalEosinophils/100 WBC Auto (Bld)Ordered By: Jose Valdovinos on 43-38-0213Fmwgimzomyl/100 WBC (Bld) Automated eosinophil %.[facility]ger HospitalErythrocyte distribution width Auto (RBC) [Ratio]Ordered By: Jose Valdovinos on 68-86-7047Yeoatdxezrr distribution width (RBC) [Ratio]Erythrocyte distribution width [Ratio] by Automated count12.0-14.8Berger HospitalErythrocyte distribution width [Ratio] by Automated countOrdered By: Jose Valdovinos on 37-39-6757Fvtpexkuulo distribution width (RBC) [Ratio]13.3 %Uyfkrl46.0-14.8 [facility] HospitalComment on above:Performed By: #### IGG #### [facility] , #### CBC, BMP, A1C WTH eA, HEPATIC, LIPID #### [facility] [address] [place] [address] USAErythrocytes [#/volume] in Blood by Automated countOrdered By: Jose Valdovinos on 12-67-7012HKP (Bld) [#/Vol]4.73 10*6/uLNormal3.90-5.60 [facility] HospitalComment on above:Performed By: #### IGG #### [facility] , #### CBC, BMP, A1C WTH eA, HEPATIC, LIPID #### [facility] [address] [place] [id number] USAGlobulin Calc (S) [Mass/Vol]Ordered By: Jose Valdovinos on 86-37-7227Mhkicvwp (S) [Mass/Vol]Serum globulin measurement by calculation (mass/volume)[facility] HospitalGlucose [Mass/volume] in Serum or PlasmaOrdered By: Jose Valdovinos on 32-56-9090Dkbtxyk [Mass/Vol]86 mg/dLNormal 70-100Ber[facility] HospitalComment on above:ADA recommended reference rangeRandom Glucose Reference Range is dependent on time and content of last meal. Glucose of more than 200 mg/dL in a nonstressed, ambulatory subject supports the diagnosisof Diabetes Mellitus.Result Comment: Random Glucose Reference Range is dependent on time and content of last meal. Glucose of more than 200 mg/dL in a nonstressed, ambulatory subject supports the diagnosis of Diabetes Mellitus. ADA recommended reference rangePerformed By: #### IGG #### [facility] , #### CBC, BMP, A1C WTH eA, HEPATIC, LIPID #### [facility] [address] [place] [id number] USAGlucose [Mass/Vol]Glucose [Mass/volume] in Serum or Plasma 70-100Ber[facility] HospitalComment on above:ADA recommended reference rangeRandom Glucose Reference Range is dependent on time and content of last meal. Glucose of more than 200 mg/dL in a nonstressed, ambulatory subject supports the diagnosisof Diabetes Mellitus.Hematocrit Auto (Bld) [Volume fraction]Ordered By: Jose Valdovinos on 96-78-7709Fkteefvlsb (Bld) [Volume fraction]Hematocrit [Volume Fraction] of Blood by Automated count38.8-50.0 [facility] HospitalHematocrit [Volume Fraction] of Blood by Automated countOrdered By: Jose Valdovinos on 05-79-2881Rwmypbqtas (Bld) [Volume fraction]45.7 %Xvhwrj18.8-50.0[facility] HospitalComment on above: Performed By: #### IGG #### [facility] , #### CBC, BMP, A1C WTH eA, HEPATIC, LIPID #### [facility] [address] [place] [id number] USAHemoglobin A1c/Hemoglobin.total in BloodOrdered By: Jose Valdovinos on 28-17-9803AbL6d (Bld) [Mass fraction]Hemoglobin A1c percentage4.3-5.6 Berger HospitalComment on above:Increased risk for diabetes: 5.7 - 6.4diabetes: >6.4glycemic control for adults with diabetes: <7.0 Hemoglobin [Mass/volume] in BloodOrdered By: Jose Valdovinos on 49-00-6271Sehinzsnhg (Bld) [Mass/Vol]15.8 g/oWHgviyc34.0-17.0[facility] Comment on above:Performed By: #### IGG #### [facility] , #### CBC, BMP, A1C WTH eA, HEPATIC, LIPID #### [facility] [address] [place] [address] USAHemoglobin (Bld) [Mass/Vol]Hemoglobin [Mass/volume] in Blood13.0-17.0Berger HospitalHepatic Panelon 46-01-8027Ndawcvi [Mass/Vol]4.3 g/dLNormal3.5-5.7The [facility] Physician GroupComment on above: Performed By: #### IGG #### [facility] , #### CBC, BMP, A1C WTH eA, HEPATIC, LIPID #### [facility] [address] [place] [address] USABilirubin,Indirect0.5 mg/dLNormalThe [facility] Hospital Physician GroupComment on above:Performed By: #### IGG #### [facility] , #### CBC, BMP, A1C WTH eA, HEPATIC, LIPID #### [place] [address] USABilirubin.indirect [Mass/Vol]0.10 mg/dLNormal0.03-0.18The [facility] Physician GroupComment on above:Performed By: #### IGG #### [facility] , #### CBC, BMP, A1C WTH eA, HEPATIC, LIPID #### [place] [address] USAImmunoglobulin John 62-08-9839Fakceaixbprche G768 mg/dL Gojvsq479-2511Dpx [facility] Physician GroupComment on above:Result Comment: Performed at: [facility] [id number] Entry Level Programmer: Humebrto Farrar PhD, Phone: [phone] PERFORMED BY: [place] [address] PATHOLOGIST PRODUCTION SKI REPAIRER MARJORIE WAYNE M.D.Performed By: #### IGG #### [facility] , #### CBC, BMP, A1C WTH eA, HEPATIC, LIPID #### [place] [address] USALeukocytes [#/volume] corrected for nucleated erythrocytes in Blood by Automated counOrdered By: Jose Valdovinos on 84-63-6140HBL corrected for nucl RBC Auto (Bld) [#/Vol]5.2 10*3/uL4.1-10.5FOhioHealth Berger HospitalWBC corrected for nucl RBC Auto (Bld) [#/Vol]Leukocytes [#/volume] corrected for nucleated erythrocytes in Blood by Automated coun4.1-10.5FOhioHealth Berger HospitalLeukocytes [#/volume] in Blood by Automated countOrdered By: Jose Valdovinos on 65-06-4244XJX (Bld) [#/Vol]5.2 10*3/uLNormal4.1-10.5 [facility] HospitalComment on above:Performed By: #### IGG #### [facility] , #### CBC, BMP, A1C WTH eA, HEPATIC, LIPID #### [facility] [address] [place] [id number] USALipid Panelon 86-48-4932TVQ Cholesterol,Rqyqzufjir87 mg/dL Normal0-100[facility] Physician GroupComment on above:Result Comment: LDL ATP III CLASSIFICATION LDL less than 100 mg/dL Optimal LDL 100-129 mg/dL Near or above optimal LDL 130-159 mg/dL Borderline high LDL 160-189 mg/dL High LDL greater than 189 mg/dL Very highPerformed By: #### IGG #### [facility] , #### CBC, BMP, A1C WTH eA, HEPATIC, LIPID #### [facility] [address] [place] [address] USATriglyceride w/Frufaw334 mg/dLHigh0-149The [facility] Physician GroupComment on above:Result Comment: TRIG ATP III CLASSIFICATION TRIG less than 150 mg/dL Normal TRIG 150-199 mg/dL Borderline high TRIG 200-500 mg/dL High TRIG greater than 500 mg/dL Very high Standard traceable to the Center for Disease Conrtrol and Prevention (CDC) test method.Performed By: #### IGG #### [facility] , #### CBC, BMP, A1C WTH eA, HEPATIC, LIPID #### [place] [id number] USAVLDL XOSBSVPDDIQ87 mg/dLNormalThe [facility] Hospital Physician GroupComment on above:Performed By: #### IGG #### [facility] , #### CBC, BMP, A1C WTH eA, HEPATIC, LIPID #### [facility] [address] [place] [address] USALymphocytes Auto (Bld) [#/Vol]Ordered By: Jose Valdovinos on 64-40-4781Rvzpuzvduqq (Bld) [#/Vol]Lymphocytes [#/volume] in Blood by Automated count1.00-4.8Berger HospitalLymphocytes [#/volume] in Blood by Automated countOrdered By: Jose Valdovinos on 09-41-6697Obijhjkxysc (Bld) [#/Vol] 1.0 10*3/uLNormal1.00-4.8[facility] HospitalComment on above: Performed By: #### IGG #### [facility] , #### CBC, BMP, A1C WTH eA, HEPATIC, LIPID #### [facility] [address] [place] [address] USALymphocytes/100 WBC Auto (Bld)Ordered By: Jose Valdovinos on 80-27-0065Yznlqgdfutd/100 WBC (Bld)Lymphocytes/100 leukocytes in Blood by Automated count.Berger HospitalLymphocytes/100 leukocytes in Blood by Automated countOrdered By: Jose Valdovinos on 14-54-0997Wzsrxyjqnxg/100 WBC (Bld)18.6 %Normal.[facility]ger HospitalComment on above:Performed By: #### IGG #### [facility] , #### CBC, BMP, A1C WTH eA, HEPATIC, LIPID #### [facility] [address] Auto (RBC) [Entitic mass]Ordered By: Jose Valdovinos on 91-67-8139LWF (RBC) [Entitic mass]MCH [Entitic mass] by Automated count27.5-35.[address] [facility] [Entitic mass] by Automated countOrdered By: Jose Valdoivnos on 97-44-7003HZX (RBC) [Entitic mass]33.3 wfYysora37.5-35.2 Berger HospitalComment on above:Performed By: #### IGG #### [facility] , #### CBC, BMP, A1C WTH eA, HEPATIC, LIPID #### [facility] [address] [place] [id number] [facility] Auto (RBC) [Mass/Vol]Ordered By: Jose Valdovinos on 72-78-9013QCAF (RBC) [Mass/Vol]34.5 g/dL32.5-35.6FOhioHealth Berger HospitalMCHC (RBC) [Mass/Vol]MCHC [Mass/volume] by Automated count32.5-35.6 Berger HospitalMCV Auto (RBC) [Entitic vol]Ordered By: Jose Valdovinos on 12-66-7968UDV (RBC) [Entitic vol]MCV [Entitic volume] by Automated count83.5-101Berger HospitalMCV [Entitic volume] by Automated countOrdered By: Jose Valdovinos on 55-15-8317WZE (RBC) [Entitic vol]96.6 fLNormal 83.5-101Ber[facility] HospitalComment on above:Performed By: #### IGG #### [facility] , #### CBC, BMP, A1C WTH eA, HEPATIC, LIPID #### [facility] [address] [place] [address] USAMonocytes Auto (Bld) [#/Vol]Ordered By: Jose Valdovinos on 74-46-9857Eccgqwbkd (Bld) [#/Vol]Automated blood monocyte count0.0-0.8Berger HospitalMonocytes/100 WBC Auto (Bld)Ordered By: Jose Valdovinos on 92-09-2956Jdhvsrgrp/100 WBC (Bld)Automated monocyte %.Berger HospitalNeutrophils Auto (Bld) [#/Vol]Ordered By: Jose Valdovinos on 05-02-2024 Neutrophils (Bld) [#/Vol]Neutrophils [#/volume] in Blood by Automated count 1.8-7.7FOhioHealth Berger HospitalNeutrophils [#/volume] in Blood by Automated countOrdered By: Jose Valdovinos on 98-87-9921Ghvawitgbsy (Bld) [#/Vol]3.5 10*3/uLNormal1.8-7.7FOhioHealth Berger HospitalComment on above:Performed By: #### IGG #### [facility] , #### CBC, BMP, A1C WTH eA, HEPATIC, LIPID #### [facility] [address] [place] [id number] USANeutrophils/100 WBC Auto (Bld)Ordered By: Jose Valdovinos on 55-66-6841Ldmsubdpybd/100 WBC (Bld)Automated neutrophil %.[facility]ger HospitalNo Panel InformationOrdered By: Jose Valdovinos on 93-60-8424Cplxfikeq GFR (CKD-EPI)> 60.0 mL/MinBerger HospitalPharmacy Creatinine Clearance (ChemN/AFOhioHealth Berger HospitalNucleated erythrocytes [Presence] in Blood by Automated countOrdered By: Jose Valdovinos on 05-02-2024 Nucleated RBC Auto Ql (Bld)0.0 /100{WBC}0-0.5FOhioHealth Berger Hospital Nucleated RBC Auto Ql (Bld)Nucleated erythrocytes [Presence] in Blood by Automated count0-0.5FOhioHealth Berger HospitalPlatelet mean volume Auto (Bld) [Entitic vol]Ordered By: Jose Valdovinos on 47-73-6725Zxvbifvq mean volume (Bld) [Entitic vol]Platelet mean volume [Entitic volume] in Blood by Automated count6.6-10.1FOhioHealth Berger HospitalPlatelet mean volume [Entitic volume] in Blood by Automated countOrdered By: Jose Valdovinos on 29-82-0638Ojkpzgwb mean volume (Bld) [Entitic vol]9.7 fLNormal6.6-10.1FOhioHealth Berger HospitalComment on above:Performed By: #### IGG #### [facility] , #### CBC, BMP, A1C WTH eA, HEPATIC, LIPID #### [facility] [address] [place] [address] USAPlatelets Auto (Bld) [#/Vol]Ordered By: Jose Valdovinos on 25-60-3865Vmqtvvlle (Bld) [#/Vol]Platelets [#/volume] in Blood by Automated hweyxTff529-212InnjqqhtuBerger HospitalPlatelets [#/volume] in Blood by Automated countOrdered By: Jose Valdovinos on 45-23-0611Txylzvzjv (Bld) [#/Vol]143 10*3/kTVxr078-786LrgxoptefBerger HospitalComment on above:Performed By: #### IGG #### [facility] , #### CBC, BMP, A1C WTH eA, HEPATIC, LIPID #### [facility] [address] [place] [address] USAPotassium [Moles/volume] in Serum or PlasmaOrdered By: Jose Valdovinos on 50-45-8733Hsoapevbd [Moles/Vol]4.2 mmol/LNormal3.5-5.1FOhioHealth Berger HospitalComment on above:Performed By: #### IGG #### [facility] , #### CBC, BMP, A1C WTH eA, HEPATIC, LIPID #### [facility] [address] [place] [address] USAPotassium [Moles/Vol]Potassium [Moles/volume] in Serum or Plasma3.5-5.1FOhioHealth Berger HospitalProtein [Mass/volume] in Serum or PlasmaOrdered By: Jose Valdovinos on 91-66-7142Ebrzcno [Mass/Vol]6.4 g/dLNormal 6.4-8.9Berger HospitalComment on above:Performed By: #### IGG #### [facility] , #### CBC, BMP, A1C WTH eA, HEPATIC, LIPID #### [facility] [address] [place] [address] USAProtein [Mass/Vol]Protein [Mass/volume] in Serum or Plasma 6.4-8.9Berger HospitalRBC Auto (Bld) [#/Vol]Ordered By: Jose Valdovinos on 74-30-8936JOP (Bld) [#/Vol]Erythrocytes [#/volume] in Blood by Automated count3.90-5.60OhioHealth Berger Hospitalerum globulin measurement by calculation (mass/volume)Ordered By: Jose Valdovinos on 05-02-2024 Globulin (S) [Mass/Vol]2.1 g/dLNoFlower HospitalComment on above:Performed By: #### IGG #### [facility] , #### CBC, BMP, A1C WTH eA, HEPATIC, LIPID #### [facility] [address] [place] [address] USASerum or plasma IgG measurement (mass/volume)Ordered By: Jose Valdovinos on 46-33-6475YyH [Mass/Vol]IgG [Mass/volume] in Serum or Plasma [id number] [place], [place] [address]Comment on above:Performed at: [facility] [id number] Director: Humberto Farrar PhD, Phone: [phone] or plasma albumin/globulin mass ratio Ordered By: Jose Valdovinos on 21-61-8330Rzlvsap/Globulin [Mass ratio]2.0 {ratio} NormalBerger HospitalComment on above:Performed By: #### IGG #### [facility] , #### CBC, BMP, A1C WTH eA, HEPATIC, LIPID #### [facility] [address] [place] [id number] USAAlbumin/Globulin [Mass ratio]Serum or plasma albumin/globulin mass ratioOhioHealth Berger Hospitalerum or plasma anion gap determinationOrdered By: Jose Valdovinos on 12-18-4272Acgit gap [Moles/Vol]9.1 mmol/LNormal6.0-15.0Berger HospitalComment on above:Performed By: #### IGG #### [facility] , #### CBC, BMP, A1C WTH eA, HEPATIC, LIPID #### [facility] [address] [place] [id number] USAAnion gap [Moles/Vol]Serum or plasma anion gap determination6.0-15.0OhioHealth Berger Hospitalerum or plasma high density lipoprotein (HDL) cholesterol measurementOrdered By: Jose Valdovinos on 34-35-2260Kwmvighycdz in HDL [Mass/Vol]39 mg/nWKltvlb64-59WevvwlecuBerger HospitalComment on above:HDL CHOL ATP-III CLASSIFICATION Cardiovascular RiskHDL > or equal to 60 mg/dL LOWHDL < 40 mg/dL HIGHResult Comment: HDL CHOL ATP-III CLASSIFICATION Cardiovascular Risk HDL > or equal to 60 mg/dL LOW HDL < 40 mg/dL HIGHPerformed By: #### IGG #### [facility] , #### CBC, BMP, A1C WTH eA, HEPATIC, LIPID #### [facility] [address] [place] [address] USASerum or plasma non-glucuronidated bilirubin measurement (mass/volume)Ordered By: Jose Valdovinos on 93-82-4122Ksnnogoft.indirect [Mass/Vol] 0.5 mg/dLBerger HospitalBilirubin.indirect [Mass/Vol]Serum or plasma non-glucuronidated bilirubin measurement (mass/volume)OhioHealth Berger Hospitalerum or plasma total cholesterol/high density lipoprotein (HDL) cholesterol mass ratOrdered By: Jose Valdovinos on 05-02-2024 Cholesterol.total/Cholesterol in HDL [Mass ratio]3.6 {ratio}Normal<5.0Berger HospitalComment on above:Result Comment: PERFORMED BY: [facility] [address] [place] [address] PATHOLOGIST PRODUCTION SKI REPAIRER MARJORIE WAYNE M.D.Performed By: #### IGG #### [facility] , #### CBC, BMP, A1C WTH eA, HEPATIC, LIPID #### [facility] [address] [place] [id number] USACholesterol.total/Cholesterol in HDL [Mass ratio]Serum or plasma total cholesterol/high density lipoprotein (HDL) cholesterol mass rat<5.0 [facility]Health Berger Hospitalodium [Moles/volume] in Serum or PlasmaOrdered By: Jose Valdovinos on 31-32-8100Nykgbc [Moles/Vol]137 mmol/HAohkws757-398SqdpfcmqfBerger HospitalComment on above:Performed By: #### IGG #### [facility] , #### CBC, BMP, A1C WTH eA, HEPATIC, LIPID #### [facility] [address] [place] [id number] USASodium [Moles/Vol]Sodium [Moles/volume] in Serum or Plasma 136-145Berger HospitalTriglyceride [Mass/volume] in Serum or PlasmaOrdered By: Jose Valdovinos on 08-97-7874Rmpfekgdhygs [Mass/Vol]201 mg/dLHigh 0-149Berger HospitalComment on above:TRIG ATP III CLASSIFICATIONTRIG less than 150 mg/dL NormalTRIG 150-199 mg/dL Borderline highTRIG 200-500 mg/dL High TRIG greater than 500 mg/dL Very highStandard traceable to the Center for Disease Conrtrol and Prevention (CDC) test method. Triglyceride [Mass/Vol]Triglyceride [Mass/volume] in Serum or PlasmaHigh0-149 Berger HospitalComment on above:TRIG ATP III CLASSIFICATIONTRIG less than 150 mg/dL NormalTRIG 150-199 mg/dL Borderline highTRIG 200-500 mg/dL High TRIG greater than 500 mg/dL Very highStandard traceable to the Center for Disease Conrtrol and Prevention (CDC) test method. Urea nitrogen [Mass/volume] in Serum or PlasmaOrdered By: Jose Valdovinos on 87-85-7901Nevt nitrogen [Mass/Vol]24 mg/dLNormal7Berger HospitalComment on above:Performed By: #### IGG #### [facility] , #### CBC, BMP, A1C WTH eA, HEPATIC, LIPID #### [place] [address] USAUrea nitrogen [Mass/Vol]Urea nitrogen [Mass/volume] in Serum or Plasma01-20Berger HospitalWBC Auto (Bld) [#/Vol] Ordered By: Jose Valdovinos on 65-65-2764FXA (Bld) [#/Vol]Leukocytes [#/volume] in Blood by Automated count4.1-10.5FOhioHealth Berger HospitalHemoglobin [Mass/volume] in BloodOrdered By: Rosey Dubose on 86-29-9311Hxsouqzqlx (Bld) [Mass/Vol]15.8 g/dL13.0-17.0Berger HospitalHemoglobin (Bld) [Mass/Vol]Hemoglobin [Mass/volume] in Blood13.0-17.0Berger HospitalProstate specific Ag [Mass/volume] in Serum or PlasmaOrdered By: Rosey Dubose on 56-18-6709Jtatvywg specific Ag [Mass/Vol]0.090 ng/mL0.000-4.000 Berger HospitalComment on above:Serial tumor marker results determined by assays using different manufacturers or methods may not be comparable.[facility] milling machinist and method:Oxygen BiotherapeuticsEL DXI, CHEMILUMINESCENT IMMUNOASSAY.Prostate specific Ag [Mass/Vol]Prostate specific Ag [Mass/volume] in Serum or Plasma0.000-4.000[facility] Comment on above:Serial tumor marker results determined by assays using different manufacturers or methods may not be comparable.[facility] milling machinist and method:Oxygen BiotherapeuticsEL DXI, CHEMILUMINESCENT IMMUNOASSAY. Testosterone [Mass/volume] in Serum or PlasmaOrdered By: Rosey Dubose on 08-99-5427Hokpugyuwixo [Mass/Vol]1.00 ng/mLLow1.75-7.81[facility] HospitalTestosterone [Mass/Vol]Testosterone [Mass/volume] in Serum or PlasmaLow1.75-7.81[facility] HospitalEMG 2 Extremitieson 93-86-2773EVSTWright Memorial HospitalN 9-10 Nerveson 19-50-2406ZANSSalem Memorial District Hospital Panel Informationon 41-39-5709Qyyi Hill, [place] 02/16/2024 9:23 AM Trigger Point Injection: right cervical paraspinals, left cervical paraspinals on 02/16/2024 8:20 AM Indications: pain, muscle spasm and myalgia Details: 25 G needle Medications: 40 mg methylPREDNISolone Na Suc (PF) 40 MG; 3 mL bupivacaine 0.25 % Outcome: tolerated well, no immediate complications Procedure, treatment alternatives, risks and benefits explained, specific risks discussed. Consent was given by the patient. [facility] Spine Lumbar w/ + w/o Contraston 27-94-6960WYZ Spine Lumbar w/ + w/o ContrastExam Date/Time: 01/25/2024 19:24 EDT Reason for Exam: [...] Sacrum and iliac wings: Unremarkable. Ordering Provider: NATANAEL MARTINEZ FINAL REPORT Dictated: 01/28/2024 3:28 pm Ricki Guzman MD Signed (Electronic Signature): 01/28/2024 3:28 pm Signed by: Ricki Guzman MD Transcribed by: MARGAUX Technologist: ZEB Technical Comments Vueway Contrast amount in ml's: 10NormalFisher Sinai Hospital Of BaltimoreCHEMISTRYOrdered By: SYSTEM SYSTEM on 68-13-0847eFJI29 mL/min/1.73 v6Yacfka>=59mL/min/1.73 u6Ybjuami ChemCreatinineon 11-23-4878Bmnlqzynlq [Mass/Vol]1.3 mg/dLNormal0.5-1.3Fisher Sinai Hospital Of BaltimoreComment on above:Performed By: #### [id number] #### [facility] [address], [place] [address]Ugmkqvlmi glomerular filtration rate (GFR) non- on 65-01-9173XYB/1.73 sq M.predicted among non-blacks MDRD (S/P/Bld) [Vol rate/Area]61 mL/min/1.73 m2>=59[facility] HospitalLaboratory - Chemistry and Chemistry - challengeOrdered By: SYSTEM SYSTEM on 01-25-2024 Creatinine [Mass/Vol]1.3 mg/dL0.5-1.3Remisol ChemeGFRon 97-78-2595cRAW60 mL/min/1.73 e8Befsys>=59Highland District HospitalComment on above:Order Comment: Order added by Discern Expert.Performed By: #### [id number] #### [facility] [address], [place] [address]Dfoepfp aminotransferase [Enzymatic activity/volume] in Serum or PlasmaOrdered By: Jose Valdvoinos on 48-62-8500GXE [Catalytic activity/Vol]24 U/L 7-52[facility] HospitalAlbumin [Mass/volume] in Serum or Plasma by Bromocresol green (BCG) dye binding methoOrdered By: Jose Valdovinos on 10-24-2023 Albumin BCG dye [Mass/Vol]4.3 g/dL3.5-5.7FOhioHealth Berger Hospital Alkaline phosphatase [Enzymatic activity/volume] in Serum or PlasmaOrdered By: Jose Vadlovinos on 75-42-9093JCC [Catalytic activity/Vol]55 U/O02-796MpfkkulhqBerger HospitalAspartate aminotransferase [Enzymatic activity/volume] in Serum or PlasmaOrdered By: Jose Valdovinos on 85-12-3872VMO [Catalytic activity/Vol] 18 U/K71-44EcwqbawbjBerger HospitalBasophils Auto (Bld) [#/Vol]Ordered By: Jose Valdovinos on 88-83-9027Jwvsriqnv (Bld) [#/Vol]0.1 10*3/uL0.0-0.2FOhioHealth Berger HospitalBasophils/100 WBC Auto (Bld)Ordered By: Jose Valdovinos on 28-00-6477Lhfujezmb/100 WBC (Bld)1.0 %.[facility] Bilirubin.direct [Mass/volume] in Serum or PlasmaOrdered By: Jose Valdovinos on 98-85-8235Bkiuxwvhl.direct [Mass/Vol]0.10 mg/dL0.03-0.18FOhioHealth Berger HospitalBilirubin.total [Mass/volume] in Serum or PlasmaOrdered By: Jose Valdovinos on 96-67-7182Khdiazmza [Mass/Vol]0.5 mg/dL0.3-1.0[facility] HospitalCalcium [Mass/volume] in Serum or PlasmaOrdered By: Jose Valdovinos on 95-42-0560Lcwmdgw [Mass/Vol]9.2 mg/dL8.6-10.3FOhioHealth Berger Hospital Carbon dioxide, total [Moles/volume] in Serum or PlasmaOrdered By: Jose Valdovinos on 16-63-0061WP2 [Moles/Vol]29.3 mmol/L21.0-31.0Ber[facility] HospitalChloride [Moles/volume] in Serum or PlasmaOrdered By: Jose Valdovinos on 41-45-9936Fereocpw [Moles/Vol]100 mmol/T38-612HrdjexqxbBerger Hospital Cholesterol [Mass/volume] in Serum or PlasmaOrdered By: Jose Valdovinos on 74-96-5751Tuooiqoeoxe [Mass/Vol]139 mg/pUOcw606-216EerksvozmBerger HospitalComment on above:Chol less than 200 mg/dl low riskChol 201-239 mg/dl borderline riskChol 240 mg/dl and greater high riskCholesterol in LDL Calc [Mass/Vol]Ordered By: Jose Valdovinos on 36-54-6086Jmjsmjwwsjj in LDL [Mass/Vol]51 mg/dL0-100Firelands Regional Medical CenterComment on above:LDL ATP III CLASSIFICATIONLDL less than 100 mg/dL OptimalLDL 100-129 mg/dL Near or above ilemlhyQIR368-163 mg/dL Borderline highLDL 160-189 mg/dL HighLDL greater than 189 mg/dL Very highCholesterol in VLDL Calc [Mass/Vol]Ordered By: Jose Valdovinos on 27-41-3526Opevyywfrfa in VLDL [Mass/Vol]48 mg/dLBerger HospitalCreatinine [Mass/volume] in Serum or PlasmaOrdered By: Jose Valdovinos on 39-50-0511Jgieiguury [Mass/Vol]1.42 mg/dLHigh0.70-1.30[facility] HospitalEosinophils Auto (Bld) [#/Vol]Ordered By: Jose Valdovinos on 10-24-2023 Eosinophils (Bld) [#/Vol]0.2 10*3/uL0.0-0.45[facility] Eosinophils/100 WBC Auto (Bld)Ordered By: Jose Valdovinos on 10-24-2023 Eosinophils/100 WBC (Bld)3.6 %.[facility]ger HospitalErythrocyte distribution width Auto (RBC) [Ratio]Ordered By: Jose Valdovinos on 10-24-2023 Erythrocyte distribution width (RBC) [Ratio]13.8 %12.0-14.8[facility] HospitalFerritin [Mass/volume] in Serum or PlasmaOrdered By: Jose Valdovinos on 53-43-3216Lnowtgfz [Mass/Vol]89.9 ng/mL23.9-336.2FOhioHealth Berger HospitalGlobulin Calc (S) [Mass/Vol]Ordered By: Jose Valdovinos on 93-35-1340Bsxfpjxm (S) [Mass/Vol]1.9 g/dLBerger HospitalGlucose [Mass/volume] in Serum or PlasmaOrdered By: Jose Valdovinos on 27-42-0327Dbmiynx [Mass/Vol]112 mg/dL Ljrn59-038RojpacqtaBerger HospitalComment on above:ADA recommended reference rangeRandom Glucose Reference Range is dependent on time and content of last meal. Glucose of more than 200 mg/dL in a nonstressed, ambulatory subject supports the diagnosisof Diabetes Mellitus.Glucose mean value [Mass/volume] in Blood Estimated from glycated hemoglobinOrdered By: Jose Valdovinos on 46-38-8167Oqudjvk glucose Estimated from glycated hemoglobin (Bld) [Mass/Vol]111 mg/dLBerger HospitalHematocrit Auto (Bld) [Volume fraction]Ordered By: Jose Valdovinos on 41-50-7646Hrhthguwgq (Bld) [Volume fraction]46.2 %38.8-50.0Ber[facility] HospitalHemoglobin A1c percentageOrdered By: Jose Valdovinos on 83-27-2404NqC4e (Bld) [Mass fraction]5.5 % 4.3-5.6FOhioHealth Berger HospitalComment on above:Increased risk for diabetes: 5.7 - 6.4diabetes: >6.4glycemic control for adults with diabetes: &l t;7.0Hemoglobin [Mass/volume] in BloodOrdered By: Jose Valdovinos on 10-24-2023 Hemoglobin (Bld) [Mass/Vol]15.9 g/dL13.0-17.0[facility] Iron [Mass/volume] in Serum or PlasmaOrdered By: Jose Valdovinos on 70-20-7414Wovo [Mass/Vol]65 ug/dR68-242AtrrlxkkrBerger HospitalLeukocytes [#/volume] corrected for nucleated erythrocytes in Blood by Automated counOrdered By: Jose Valdovinos on 97-81-4556WTH corrected for nucl RBC Auto (Bld) [#/Vol]5.3 10*3/uL 4.1-10.5FOhioHealth Berger HospitalLymphocytes Auto (Bld) [#/Vol]Ordered By: Jose Valdovinos on 42-54-4712Hnsdtoxnfrs (Bld) [#/Vol]1.0 10*3/uL1.00-4.8 Berger HospitalLymphocytes/100 WBC Auto (Bld)Ordered By: Jose Valdovinos on 04-78-3190Oolgynwkksa/100 WBC (Bld)18.3 %.[facility] HospitalMCH Auto (RBC) [Entitic mass]Ordered By: Jose Valdovinos on 82-40-5691NFP (RBC) [Entitic mass]32.7 pg27.5-35.2FOhioHealth Berger HospitalMCHC Auto (RBC) [Mass/Vol]Ordered By: Jose Valdovinos on 71-51-3226DIWI (RBC) [Mass/Vol]34.5 g/dL32.5-35.6FOhioHealth Berger HospitalMCV Auto (RBC) [Entitic vol] Ordered By: Jose Valdovinos on 92-15-4222ZAH (RBC) [Entitic vol]94.7 fL83.5-101 [facility] HospitalMonocytes Auto (Bld) [#/Vol]Ordered By: Jose Valdovinos on 78-05-3076Nubikxfhd (Bld) [#/Vol]0.7 10*3/uL0.0-0.8Ber[facility] HospitalMonocytes/100 WBC Auto (Bld)Ordered By: Jose Valdovinos on 10-24-2023 Monocytes/100 WBC (Bld)14.1 %.[facility] HospitalNeutrophils Auto (Bld) [#/Vol]Ordered By: Jose Valdovinos on 94-98-3401Ijlvbhzeyjx (Bld) [#/Vol]3.3 10*3/uL1.8-7.7FOhioHealth Berger HospitalNeutrophils/100 WBC Auto (Bld) Ordered By: Jose Valdovinos on 08-13-8061Mrybtrvouwt/100 WBC (Bld)63.0 %.[facility] HospitalNo Panel InformationOrdered By: Jose Valdovinos on 10-24-2023 Estimated GFR (CKD-EPI)55.179 mL/MinBerger HospitalPharmacy Creatinine Clearance (ChemN/AFOhioHealth Berger HospitalNucleated erythrocytes [Presence] in Blood by Automated countOrdered By: Jose Valdovinos on 48-83-8488Snauotbnt RBC Auto Ql (Bld)0.1 /100{WBC}0-0.5FOhioHealth Berger HospitalPlatelet mean volume Auto (Bld) [Entitic vol]Ordered By: Jose Valdovinos on 12-45-7392Vfibqqbo mean volume (Bld) [Entitic vol]8.8 fL6.6-10.1 Berger HospitalPlatelets Auto (Bld) [#/Vol]Ordered By: Jose Valdovinos on 85-27-5726Pjygywtfy (Bld) [#/Vol]171 10*3/sJ021-211UldrluonwBerger HospitalPotassium [Moles/volume] in Serum or PlasmaOrdered By: Jose Valdovinos on 47-11-5943Bmwxykmqh [Moles/Vol]4.7 mmol/L3.5-5.1FOhioHealth Berger HospitalProtein [Mass/volume] in Serum or PlasmaOrdered By: Jose Valdovinos on 50-12-2771Vgjoahh [Mass/Vol]6.2 g/dLLow6.4-8.9[facility] RBC Auto (Bld) [#/Vol]Ordered By: Jose Valdovinos on 37-10-9288ZYW (Bld) [#/Vol]4.87 10*6/uL3.90-5.60OhioHealth Berger Hospitalerum or plasma albumin/globulin mass ratioOrdered By: Jose Valdovinos on 11-04-7330Txbtgvj/Globulin [Mass ratio]2.3 {ratio}OhioHealth Berger Hospitalerum or plasma anion gap determinationOrdered By: Jose Valdovinos on 41-36-1916Qrzuo gap [Moles/Vol]15.4 mmol/LHigh6.0-15.0OhioHealth Berger Hospitalerum or plasma high density lipoprotein (HDL) cholesterol measurementOrdered By: Jose Valdovinos on 10-24-2023 Cholesterol in HDL [Mass/Vol]39 mg/dB48-40KarnwboioBerger Hospital Comment on above:HDL CHOL ATP-III CLASSIFICATION Cardiovascular RiskHDL > or equal to 60 mg/dL LOWHDL < 40 mg/dL HIGHSerum or plasma non-glucuronidated bilirubin measurement (mass/volume)Ordered By: Jose Valdovinos on 10-24-2023 Bilirubin.indirect [Mass/Vol]0.4 mg/dLOhioHealth Berger Hospitalerum or plasma total cholesterol/high density lipoprotein (HDL) cholesterol mass rat Ordered By: Jose Valdovinos on 53-58-2086Ghdfsrfudqz.total/Cholesterol in HDL [Mass ratio]3.6 {ratio}<5.0OhioHealth Berger Hospitalodium [Moles/volume] in Serum or PlasmaOrdered By: Jose Valdovinos on 06-31-1369Lkjnes [Moles/Vol]140 mmol/L 136-145Ber[facility] HospitalTriglyceride [Mass/volume] in Serum or PlasmaOrdered By: Jose Valdovinos on 53-69-2395Rzkjxfjzsexd [Mass/Vol]243 mg/dLHigh 0-149[facility] HospitalComment on above:TRIG ATP III CLASSIFICATIONTRIG less than 150 mg/dL NormalTRIG 150-199 mg/dL Borderline highTRIG 200-500 mg/dL High TRIG greater than 500 mg/dL Very highStandard traceable to the Center for Disease Conrtrol and Prevention (CDC) test method. Urea nitrogen [Mass/volume] in Serum or PlasmaOrdered By: Jose Valdovinos on 97-89-6545Rqlq nitrogen [Mass/Vol]23 mg/dL7-25[facility] WBC Auto (Bld) [#/Vol]Ordered By: Jose Valdovinos on 53-76-5406LNY (Bld) [#/Vol]5.3 10*3/uL4.1-10.5FOhioHealth Berger HospitalAlternaria alternata IgE Ab [Units/volume] in SerumOrdered By: Helena Posey on 08-24-2023. alternata IgE Qn (S)<0.10 kU/LClass [address] [place], [place] [address]American house dust mite IgE Ab [Units/volume] in SerumOrdered By: Helena Posey on 08-24-2023 Faroese house dust mite IgE Qn (S)<0.10 kU/LClass [address] [place], [place] [address]Aspergillus fumigatus IgE Ab [Units/volume] in SerumOrdered By: Helena Posey on 08-24-2023. fumigatus IgE Qn (S)<0.10 kU/LClass [address] [place], [place] [address]Bermuda grass IgE Ab [Units/volume] in SerumOrdered By: Helena Posey on 58-85-7499Lqkrmhz grass IgE Qn (S)<0.10 kU/LClass [address] [place], [place] [address]Boxelder IgE Ab [Units/volume] in SerumOrdered By: Helena Posey on 90-11-2925Dcntambm IgE Qn (S)<0.10 kU/LClass [address] [place], [place] [address]Cladosporium herbarum IgE Ab [Units/volume] in SerumOrdered By: Helena Posey on 08-24-2023. herbarum IgE Qn (S)<0.10 kU/LClass 0Berger HospitalCockroach IgE Ab [Units/volume] in SerumOrdered By: Helena Posey on 75-77-7863Qetssowma IgE Qn (S)0.14 kU/LClass 0/IFirelAvita Health System Ontario HospitalCottonwood IgE Ab [Units/volume] in SerumOrdered By: Helena Posey on 26-97-1366Turboejpbj IgE Qn (S)<0.10 kU/LClass 0[facility] HospitalDog dander IgE Ab [Units/volume] in SerumOrdered By: Helena Posey on 14-39-0463Cxk dander IgE Qn (S)<0.10 kU/LClass [address] [place], [place] [address]European house dust mite IgE Ab [Units/volume] in Serum Ordered By: Helena Posey on 26-40-7083Bbmprljk house dust mite IgE Qn (S) <0.10 kU/LClass [address] [place], [place] [address]IgE [Units/volume] in Serum or PlasmaOrdered By: Helena Posey on 63-42-6381IkS Qn49 [IU]/mL6-495Berger HospitalMountain Juniper IgE Ab [Units/volume] in SerumOrdered By: Helena Posey on 48-66-9718Nkhcjlue Juniper IgE Qn (S)<0.10 kU/LClass 0 [facility] HospitalMouse urine proteins IgE Ab [Units/volume] in SerumOrdered By: Helena Posey on 24-05-4966Aykdo urine proteins IgE Qn (S) <0.10 kU/LClass [address] [place], [place] [address]Comment on above:Performed at: [place] [address] [place], [place] [id number] Director: Hernan Lozoya MD, Phone: [phone] Panel InformationOrdered By: Helena Posey on 18-41-4578Wfxmtyzu NoteSee comment.[facility] Comment on above:Levels of Specific IgE Class Description of Class ----- < 0.10 0 Negative 0.10 - 0.31 0/I Equivocal/Low 0.32 - 0.55 I Low 0.56 - 1.40 II Moderate 1.41 - 3.90 III High 3.91 - 19.00 IV Very High 19.01 - 100.00 V Very High >100.00 Very High Pecan or [place] Tree IgE Ab [Units/volume] in SerumOrdered By: Helena Posey on 25-14-5355Hvlgy or [place] Tree IgE Qn (S)<0.10 kU/LClass [address] [place], [place] [address]altwort IgE Ab [Units/volume] in SerumOrdered By: Helena Posey on 19-78-5954Ukusxomq IgE Qn (S)<0.10 kU/LClass [address] [place], [place] [address]erum Faroese sycamore IgE antibody assay (units/volume) Ordered By: Helena Posey on 15-40-5393Jtjatkef Kiowa IgE Qn (S)<0.10 kU/L Class [address] [place], [place] [address]erum Penicillium chrysogenum specific IgE antibody assayOrdered By: Helena Posey on 08-24-2023. notatum IgE Qn (S)<0.10 kU/LClass [address] [place], [place] [address]erum cat dander IgG antibody assay (units/volume)Ordered By: Helena Posey on 24-87-4976Gjy dander IgG Qn (S)<0.10 kU/LClass [address] [place], [place] [address]erum rough pigweed IgE antibody assay (units/volume)Ordered By: Helena Posey on 55-41-2059Agzox Pigweed IgE Qn (S)<0.10 kU/LClass [address] [place], [place] [address]erum short ragweed specific IgE antibody assayOrdered By: Helena Posey on 51-64-6158Hoxwwa Ragweed IgE Qn (S)<0.10 kU/LClass [address] [place], [place] [address]erum white elm IgG antibody assay (units/volume)Ordered By: Helena Posey on 41-73-1161Fwytb Elm IgG Qn (S)<0.10 kU/LClass [address] [place], [place] [address]heep Riverside IgE Ab [Units/volume] in SerumOrdered By: Helena Posey on 22-76-4884Dzjnz Riverside IgE Qn (S)<0.10 kU/LClass [address] [place], [place] [address]ilver Birch IgE Ab [Units/volume] in SerumOrdered By: Helena Posey on 06-37-5958Rtwsjs Birch IgE Qn (S)<0.10 kU/LClass [address] [place], [place] [address]Timothy IgE Ab [Units/volume] in SerumOrdered By: Helena Posey on 96-83-3072Vvzemqk IgE Qn (S)<0.10 kU/LClass [address] [place], [place] [address]Walnut IgE Ab [Units/volume] in SerumOrdered By: Helena Posey on 07-76-5230Suyrwt IgE Qn (S)<0.10 kU/LClass [address] [place], [place] [address]White Aureliano IgE Ab [Units/volume] in SerumOrdered By: Helena Posey on 64-62-8767Gvafg Aureliano IgE Qn (S)<0.10 kU/LClass [address] [place], [place] [address]White Happy IgE Ab [Units/volume] in SerumOrdered By: Helena Posey on 61-54-4999Efnqb Happy IgE Qn (S)<0.10 kU/LClass [address] [place], [place] [address]White mulberry IgE Ab [Units/volume] in SerumOrdered By: Helena Posey on 62-06-3346Ygkzr mulberry IgE Qn (S)<0.10 kU/LClass 0Ber[facility] HospitalAlanine aminotransferase [Enzymatic activity/volume] in Serum or PlasmaOrdered By: John Soto on 32-69-2775NXL [Catalytic activity/Vol]20 U/L7-52Ber[facility] HospitalAlbumin [Mass/volume] in Serum or Plasma by Bromocresol green (BCG) dye binding methoOrdered By: John Soto on 70-76-6870Tkwhirj BCG dye [Mass/Vol]4.6 g/dL3.5-5.7 Berger HospitalAlkaline phosphatase [Enzymatic activity/volume] in Serum or PlasmaOrdered By: John Soto on 07-30-2023 ALP [Catalytic activity/Vol]57 U/P29-675TynkrkozjBerger Hospital Aspartate aminotransferase [Enzymatic activity/volume] in Serum or PlasmaOrdered By: John Soto on 87-08-6970FQJ [Catalytic activity/Vol]16 U/L13-39 [facility] HospitalAtypical perinuclear antineutrophil cytoplasmic antibodies measurementOrdered By: John Soto on 89-65-9179Imxamhhrgj cytoplasmic Ab.perinuclear.atypical IF (S) [Titer]<1:20 titerNeg:<1:20Ber[facility] HospitalComment on above:The atypical pANCA pattern has been observed in asignificant percentage of patients with ulcerativecolitis,primary sclerosing cholangitis and autoimmune hepatitis. ASCA+/PANCA- Suggestive of Crohn'sdisease ASCA-/PANCA+ Suggestive of Ulcerative colitisPerformed at: [facility] Lab[address] [id number] Director: Hernan Lozoya MD, Phone: [phone] at: [facility] Lab[address] [id number] Director: Humberto Farrar PhD, Phone: [phone] Felix's yeast IgA Ab [Units/volume] in SerumOrdered By: John Soto on 86-69-9922Znzlb's yeast IgA Qn (S)<20.0 Units0.0-24.9Ber[facility] HospitalComment on above:Negative <20.0 Equivocal 20.1 - 24.9 Positive >or= 25.0IgA and IgG antibody testing for S. cerevisiae isuseful adjunct testing for differentiating Crohn'sdisease and ulcerative colitis. Close to 80% ofCrohn's disease patients are positive for eitherIgA or IgG. In ulcerative colitis, less than15% arepositive for IgG and less than 2% are positive forIgA. Fewer than 5% are positive for eitherIgG orIgA antibody, and no healthy controls had antibodyfor both.Basophils Auto (Bld) [#/Vol]Ordered By: John Soto on 44-95-7932Jajzbndfz (Bld) [#/Vol]0.0 10*3/uL0.0-0.2FOhioHealth Berger HospitalBasophils/100 WBC Auto (Bld)Ordered By: John Soto on 07-30-2023 Basophils/100 WBC (Bld)0.7 %.[facility]ger HospitalBilirubin.total [Mass/volume] in Serum or PlasmaOrdered By: John Soto on 07-30-2023 Bilirubin [Mass/Vol]0.6 mg/dL0.3-1.0Ber[facility] HospitalCalcium [Mass/volume] in Serum or PlasmaOrdered By: John Soto on 07-30-2023 Calcium [Mass/Vol]9.6 mg/dL8.6-10.3FOhioHealth Berger HospitalCalprotectin [Mass/mass] in StoolOrdered By: John Soto on 05-92-5189Sgzzxewatdgx (Stl) [Mass/Mass]27 ug/g0-120Ber[facility] HospitalComment on above: Concentration Interpretation Follow-Up< 5 - 50 ug/g Normal None>50 -120 ug/g Borderline Re-evaluate in 4-6 weeks >120 ug/g Abnormal Repeat as clinically indicatedPerformed at: [facility] [address] [place], [place] [id number] Director: Hernan Lozoya MD, Phone: [phone] dioxide, total [Moles/volume] in Serum or PlasmaOrdered By: John Soto on 33-90-8469EI6 [Moles/Vol]27.9 mmol/L21.0-31.0[facility] Chloride [Moles/volume] in Serum or PlasmaOrdered By: John Soto on 13-01-0120Srkxhcmr [Moles/Vol]104 mmol/U66-980IprzhboqzBerger Hospital Creatinine [Mass/volume] in Serum or PlasmaOrdered By: John Soto on 18-27-3312Fcyeyedofd [Mass/Vol]1.45 mg/dL0.70-1.30Ber[facility] HospitalElastase.pancreatic [Mass/mass] in StoolOrdered By: John Soto on 13-36-8745Daztroiw.pancreatic (Stl) [Mass/Mass]101>200Ber[facility] HospitalComment on above:Result Units: ug Elast./g Severe Pancreatic Insufficiency: <100 Moderate Pancreatic Insufficiency: 100 - 200 Normal: >200Performed at: - [place] [facility] [id number] Director: Hernan Lozoya MD, Phone: [phone] Auto (Bld) [#/Vol]Ordered By: John Soto on 03-60-2679Taafofboxbx (Bld) [#/Vol]0.3 10*3/uL0.0-0.45Ber[facility] HospitalEosinophils/100 WBC Auto (Bld) Ordered By: John Soto on 44-34-8513Xrnbbqmbzex/100 WBC (Bld)4.7 %. Berger HospitalErythrocyte distribution width Auto (RBC) [Ratio]Ordered By: John Soto on 09-12-5241Lotevckgjpr distribution width (RBC) [Ratio]13.0 %12.0-14.8Berger HospitalGlobulin Calc (S) [Mass/Vol]Ordered By: John Soto on 79-41-2026Honjlsat (S) [Mass/Vol]2.2 g/dLBerger HospitalGlucose [Mass/volume] in Serum or PlasmaOrdered By: John Soto on 21-70-0441Vmhldcj [Mass/Vol]93 mg/aR19-722RrsenjzdfBerger HospitalComment on above:ADA recommended reference rangeRandom Glucose Reference Range is dependent on time and content of last meal. Glucose of more than 200 mg/dL in a nonstressed, ambulatory subject supports the diagnosisof Diabetes Mellitus.Hematocrit Auto (Bld) [Volume fraction]Ordered By: John Soto on 00-80-6234Mcdkybyawo (Bld) [Volume fraction]48.4 %38.8-50.0Ber[facility] HospitalHemoglobin [Mass/volume] in BloodOrdered By: John Soto on 71-01-3112Ciifgcqfbb (Bld) [Mass/Vol]16.7 g/dL13.0-17.0Berger HospitalINR in Platelet poor plasma by Coagulation assayOrdered By: John Soto on 61-39-8471MPO Coag (PPP) [Relative time]0.9 {INR}Berger HospitalComment on above:INR Therapeutic Range A) Pre- and Peroperative OAT started two weeks before surgery. NOT HIP SURGERY: 1.5 - 2.5 HIP SURGERY: 2 - 3B) Primary and secondary prevention of venous THROMBOSIS: 2 - 3C) Active venous thrombosis, pulmonary embolismand prevention of recurrent venous thrombosis: 2 - 3D) Prevention of arterial thromboembolismincluding patients with mechanical heart valves: 3 - 4.5Leukocytes [#/volume] corrected for nucleated erythrocytes in Blood by Automated counOrdered By: John Soto on 59-52-0675CVI corrected for nucl RBC Auto (Bld) [#/Vol]6.0 10*3/uL4.1-10.5FOhioHealth Berger HospitalLymphocytes Auto (Bld) [#/Vol]Ordered By: John Soto on 87-14-6077Wnhsjohokzo (Bld) [#/Vol]1.0 10*3/uL1.00-4.8Berger HospitalLymphocytes/100 WBC Auto (Bld)Ordered By: John Soto on 68-71-1275Qhwqaeoocoh/100 WBC (Bld)16.4 %.[facility] Auto (RBC) [Entitic mass]Ordered By: John Soto on 27-55-1770LOX (RBC) [Entitic mass]31.9 pg27.5-35.2FChildren's Hospital of Columbus Auto (RBC) [Mass/Vol]Ordered By: John Soto on 04-55-7121SONE (RBC) [Mass/Vol]34.4 g/dL32.5-35.6FOhioHealth Berger HospitalMCV Auto (RBC) [Entitic vol] Ordered By: John Soto on 92-21-7345XBX (RBC) [Entitic vol]92.8 fL 83.5-101Berger HospitalMonocytes Auto (Bld) [#/Vol]Ordered By: John Soto on 68-14-7160Pxspaqwas (Bld) [#/Vol]0.6 10*3/uL0.0-0.8 Berger HospitalMonocytes/100 WBC Auto (Bld)Ordered By: John Soto on 95-85-8929Zbdvdwsrr/100 WBC (Bld)9.9 %.[facility] HospitalNeutrophils Auto (Bld) [#/Vol]Ordered By: John Soto on 36-66-1739Tgldmsfcqbu (Bld) [#/Vol]4.1 10*3/uL1.8-7.7FOhioHealth Berger HospitalNeutrophils/100 WBC Auto (Bld)Ordered By: John Soto on 07-30-2023 Neutrophils/100 WBC (Bld)68.3 %.[facility] HospitalNo Panel InformationOrdered By: John Soto on 74-13-7169Kdwwwcpjo GFR (CKD-EPI) 53.811 mL/MinBerger HospitalPharmacy Creatinine Clearance (ChemN/AFOhioHealth Berger HospitalNucleated erythrocytes [Presence] in Blood by Automated countOrdered By: John Soto on 41-63-0433Jgrczfdfe RBC Auto Ql (Bld)0.1 /100{WBC}0-0.5FOhioHealth Berger HospitalPlatelet mean volume Auto (Bld) [Entitic vol]Ordered By: John Soto on 07-30-2023 Platelet mean volume (Bld) [Entitic vol]9.3 fL6.6-10.1FOhioHealth Berger HospitalPlatelets Auto (Bld) [#/Vol]Ordered By: John Soto on 07-30-2023 Platelets (Bld) [#/Vol]169 10*3/vW467-007IdpejfjegBerger Hospital Potassium [Moles/volume] in Serum or PlasmaOrdered By: John Soto on 61-20-2390Eraelbbjc [Moles/Vol]4.4 mmol/L3.5-5.1FOhioHealth Berger HospitalProtein [Mass/volume] in Serum or PlasmaOrdered By: John Soto on 25-06-8155Arrzusc [Mass/Vol]6.8 g/dL6.4-8.9[facility] Prothrombin time (PT)Ordered By: John Soto on 73-72-7823XD Coag (PPP) [Time]11.0 s9.0-12.9Berger HospitalComment on above:A hematocrit value greater than 55% may lead to inaccurate results in coagulation testing. Patientshaving hematocrit values >55% require a special collection tube for coagulation studies. Please contact the laboratory at [phone] for redraw instructions.RBC Auto (Bld) [#/Vol]Ordered By: John Soto on 35-00-6250IAE (Bld) [#/Vol]5.22 10*6/uL3.90-5.60[facility] Hospitalaccharomyces cerevisiae IgG serumOrdered By: John Soto on 44-77-2387Hxtyq's yeast IgG Qn (S)25.1 Units0.0-24.9Ber[facility] HospitalComment on above:Negative <20.0 Equivocal 20.1 - 24.9 Positive >or= 25.0 Serum or plasma albumin/globulin mass ratioOrdered By: John Soto on 93-16-3936Fwfkgqv/Globulin [Mass ratio]2.1 {ratio}[facility] Berger Hospitalerum or plasma anion gap determinationOrdered By: John Soto on 52-98-9755Ijjnq gap [Moles/Vol]12.5 mmol/L6.0-15.0[facility] Hospitalodium [Moles/volume] in Serum or PlasmaOrdered By: John Soto on 70-50-1045Oupwkk [Moles/Vol]140 mmol/S306-766ZwdaxuhwxBerger Hospital Stool lactoferrin detectionOrdered By: John Soto on 07-30-2023 Lactoferrin Ql (Stl)Berger HospitalLactoferrin Ql (Stl) Berger HospitalThyrotropin [Units/volume] in Serum or Plasma Ordered By: John Soto on 62-39-0915BDQ Qn3.04 m[IU]/L0.45-5.33Berger HospitalThyroxine (T4) free [Mass/volume] in Serum or Plasma Ordered By: John Soto on 71-78-8924Fths T4 [Mass/Vol]0.70 ng/dL 0.61-1.12Berger HospitalUrea nitrogen [Mass/volume] in Serum or PlasmaOrdered By: John Soto on 57-90-6307Ulmx nitrogen [Mass/Vol]26 mg/dL7-25Ber[facility] HospitalWBC Auto (Bld) [#/Vol]Ordered By: John Soto on 93-59-4173KBE (Bld) [#/Vol]6.0 10*3/uL4.1-10.5FOhioHealth Berger HospitalMRI Spine Lumbar w/ + w/o Contraston 34-00-1531MRU Spine Lumbar w/ + w/o ContrastExam Date/Time: 05/28/2023 14:36 EST Reason for Exam: [...] bilateral neuroforaminal stenosis. Report Ordering Provider: NATANAEL MARTINEZ FINAL REPORT Dictated: 05/29/2023 11:59 am Nahid Moore DO Signed (Electronic Signature): 05/29/2023 11:59 am Signed by: Nahid Moore DO Transcribed by: MARGAUX Technologist: MARLINE Technical Comments MultiHance Contrast amount in ml's: 20[facility] Memorial HospitalCHEMISTRYOrdered By: SYSTEM SYSTEM on 12-72-8846Eqdfrznypj [Mass/Vol]1.5 mg/dLHigh0.5 - 1.3 mg/dL [facility] RemisolGFR/1.73 sq M.predicted among non-blacks MDRD (S/P/Bld) [Vol rate/Area]52 mL/min/1.73 m2Low>=59mL/min/1.73 m2[facility] [place] Chem SComment on above: Interpretive Data: Chronic kidney disease could be indicated at eGFR's of less than 60 mL/min/1.73m2. Kidney failure is indicated at less than 15 mL/min/1.73m2.Consent for Treatmenton 23-73-2612Oebixam for Treatment [id number]#1.00TIFKindred Hospital LimaCreatinineon 37-30-8546Xuconneydu [Mass/Vol]1.5 mg/dLHigh0.5-1.3[facility] Hospital Of BaltimoreComment on above:Performed By: #### [id number] #### [facility] [address] [place] [address] 67754XQR - MRI Screening Formon 85-16-9088JZJ - MRI Screening Form [id number]#1.00TIFFMcCullough-Hyde Memorial HospitaleGFRon 59-55-3111TVP/1.73 sq M.predicted among non-blacks MDRD (S/P/Bld) [Vol rate/Area]52 mL/min/1.73 m2Low>=59High[facility] District HospitalComment on above:Order Comment: Order added by Discern Expert.Result Comment: Chronic kidney disease could be indicated at eGFR's of less than 60 mL/min/1.73m2. K idney failure is indicated at less than 15 mL/min/1.73m2.Performed By: #### [id number], [id number] #### [facility] [address], [place] [address]Jdfsmatlk Orderon 20-18-6609Fkejtlvvq Order [id number]#1.00TIFKindred Hospital LimaPhysician Orderon 07-85-8774Lacqpobkt Order [id number]#1.00TIFKindred Hospital LimaHemoglobin [Mass/volume] in BloodOrdered By: Rosey Dubose on 03-04-2023 Hemoglobin (Bld) [Mass/Vol]16.3 g/dL13.0-17.0[facility] Prostate specific Ag [Mass/volume] in Serum or PlasmaOrdered By: Rosey Dubose on 53-89-3451Nrjnoskm specific Ag [Mass/Vol]0.110 ng/mL0.000-4.000Ber[facility] HospitalTestosterone [Mass/volume] in Serum or PlasmaOrdered By: Rosey Dubose on 64-98-6559Ntkckcrlqgkb [Mass/Vol]2.90 ng/mL1.75-7.81Ber[facility] HospitalThyrotropin [Units/volume] in Serum or PlasmaOrdered By: Rafael Holbrook on 30-45-0025FOP Qn3.02 m[IU]/L0.45-5.33[facility] HospitalXR LSPINE W_OBLS AND FLEX_EXTon 40-71-3524HQ LSPINE W_OBLS AND FLEX_EXTEXAMINATION: XR LSPINE W_OBLS AND FLEX_EXT HISTORY: Post-laminectomy [...] appreciable acute abnormality. Electronically authenticated by: SE SITLL Date: 2022-11-26 07:41[facility] Screening.on 80-35-1509Gkbiv depression screening assessmentNo-[facility] [place] [address] DO Work Phone: Tobacco use status CPHSb) NoM-[facility] DO Work Phone: Absolute reticulocyte countOrdered By: Jose Valdovinos on 24-34-5734Dypulziwimyga (Bld) [#/Vol]0.125 10*6/uL0.024-0.084Berger HospitalAlanine aminotransferase [Enzymatic activity/volume] in Serum or PlasmaOrdered By: Jose Valdovinos on 68-83-4249LYR [Catalytic activity/Vol]20 U/L 7-52Berger HospitalAlbumin [Mass/volume] in Serum or Plasma by Bromocresol green (BCG) dye binding methoOrdered By: Jose Valdovinos on 10-03-2022 Albumin BCG dye [Mass/Vol]4.3 g/dL3.5-5.7FOhioHealth Berger Hospital Alkaline phosphatase [Enzymatic activity/volume] in Serum or PlasmaOrdered By: Jose Valdovinos on 06-99-4791QNC [Catalytic activity/Vol]62 U/L64-615LodqcdoyrBerger HospitalAspartate aminotransferase [Enzymatic activity/volume] in Serum or PlasmaOrdered By: Jose Valdovinos on 75-47-0848CWA [Catalytic activity/Vol] 15 U/I27-98OdnrpxcmzBerger HospitalBasophils Auto (Bld) [#/Vol]Ordered By: Jose Valdovinos on 99-27-9992Feaaxhoxr (Bld) [#/Vol]0.0 10*3/uL0.0-0.2FOhioHealth Berger HospitalBasophils/100 WBC Auto (Bld)Ordered By: Jose Valdovinos on 05-85-0521Fyqkpfwlt/100 WBC (Bld)0.9 %.[facility] Bilirubin.direct [Mass/volume] in Serum or PlasmaOrdered By: Jose Valdovinos on 41-24-8783Jaifkwlft.direct [Mass/Vol]0.10 mg/dL0.03-0.18FOhioHealth Berger HospitalBilirubin.total [Mass/volume] in Serum or PlasmaOrdered By: Jose Valdovinos on 70-70-5412Miozonmsr [Mass/Vol]0.5 mg/dL0.3-1.0Ber[facility] HospitalCalcium [Mass/volume] in Serum or PlasmaOrdered By: Jose Valdovinos on 09-73-2491Gmzavsc [Mass/Vol]9.1 mg/dL8.6-10.3FOhioHealth Berger Hospital Carbon dioxide, total [Moles/volume] in Serum or PlasmaOrdered By: Jose Valdovinos on 67-37-9102VD3 [Moles/Vol]29.9 mmol/L21.0-31.0Ber[facility] HospitalChloride [Moles/volume] in Serum or PlasmaOrdered By: Jose Valdovinos on 40-72-4291Evzhevir [Moles/Vol]100 mmol/V09-560IhvrhxwfuBerger Hospital Cholesterol [Mass/volume] in Serum or PlasmaOrdered By: Jose Valdovinos on 34-05-0217Kzaouwfrvgf [Mass/Vol]127 mg/oF715-031SgenbutpnBerger HospitalComment on above:Chol less than 200 mg/dl low riskChol 201-239 mg/dl borderline riskChol 240 mg/dl and greater high riskCholesterol in LDL Calc [Mass/Vol]Ordered By: Jose Valdovinos on 01-52-6500Vptcgwpphmq in LDL [Mass/Vol]62 mg/dL0-100Berger HospitalComment on above:LDL ATP III CLASSIFICATIONLDL less than 100 mg/dL OptimalLDL 100-129 mg/dL Near or above highxehNIW882-722 mg/dL Borderline highLDL 160-189 mg/dL HighLDL greater than 189 mg/dL Very highCholesterol in VLDL Calc [Mass/Vol]Ordered By: Jose Valdovinos on 07-28-9512Hrzzgniauyj in VLDL [Mass/Vol]18 mg/dLBerger HospitalCreatinine [Mass/volume] in Serum or PlasmaOrdered By: Jose Valdovinos on 12-55-7047Bvzcfvourn [Mass/Vol]1.55 mg/dL0.70-1.30Ber[facility] HospitalEosinophils Auto (Bld) [#/Vol]Ordered By: Jose Valdovinos on 10-03-2022 Eosinophils (Bld) [#/Vol]0.2 10*3/uL0.0-0.45[facility] Eosinophils/100 WBC Auto (Bld)Ordered By: Jose Valdovinos on 10-03-2022 Eosinophils/100 WBC (Bld)2.8 %.Berger HospitalErythrocyte distribution width Auto (RBC) [Ratio]Ordered By: Jose Valdovinos on 10-03-2022 Erythrocyte distribution width (RBC) [Ratio]16.2 %12.0-14.8Berger HospitalFerritin [Mass/volume] in Serum or PlasmaOrdered By: Jose Valdovinos on 20-92-2432Mzqjylqx [Mass/Vol]13.3 ng/mL23.9-336.2FOhioHealth Berger HospitalFolate [Mass/volume] in Serum or PlasmaOrdered By: Jose Valdovinos on 06-84-5543Ziixxx [Mass/Vol]41.0 ng/mL>5.9[facility] Comment on above:Folate reference range: >5.9 ng/mlThe WHO technical consultation on folate and vitamin w86xaahcivcpqib has determined that folate concentrations lessthan 4 ng/ml are considered deficient.Globulin Calc (S) [Mass/Vol]Ordered By: Jose Valdovinos on 97-52-4519Rpypsvnz (S) [Mass/Vol]2.4 g/dL Berger HospitalGlucose [Mass/volume] in Serum or PlasmaOrdered By: Jose Valdovinos on 24-99-6350Zbuokcx [Mass/Vol]91 mg/fD31-080WqgjulntdBerger HospitalComment on above:ADA recommended reference rangeRandom Glucose Reference Range is dependent on time and content of last meal. Glucose of more than 200 mg/dL in a nonstressed, ambulatory subject supports the diagnosisof Diabetes Mellitus.Glucose mean value [Mass/volume] in Blood Estimated from glycated hemoglobinOrdered By: Jose Valdovinos on 07-78-3715Dwglubt glucose Estimated from glycated hemoglobin (Bld) [Mass/Vol]123 mg/dLBerger HospitalHematocrit Auto (Bld) [Volume fraction]Ordered By: Jose Valdovinos on 38-16-1646Yfmfqytgtn (Bld) [Volume fraction]41.4 %38.8-50.0Berger HospitalHemoglobin A1c percentageOrdered By: Jose Valdovinos on 10-03-2022 HbA1c (Bld) [Mass fraction]5.9 %4.3-5.6FOhioHealth Berger HospitalComment on above:Increased risk for diabetes: 5.7 - 6.4diabetes: >6.4glycemic control for adults with diabetes: <7.0Hemoglobin [Mass/volume] in BloodOrdered By: Jose Valdovinos on 03-42-3933Dzbxlfpqah (Bld) [Mass/Vol]13.4 g/dL13.0-17.0Ber[facility] HospitalIron [Mass/volume] in Serum or PlasmaOrdered By: Jose Valdovinos on 07-66-2111Dosi [Mass/Vol]55 ug/pG88-156McipwnfutBerger HospitalLeukocytes [#/volume] corrected for nucleated erythrocytes in Blood by Automated counOrdered By: Jose Valdovinos on 47-48-5345GPW corrected for nucl RBC Auto (Bld) [#/Vol]5.7 10*3/uL4.1-10.5FOhioHealth Berger Hospital Lymphocytes Auto (Bld) [#/Vol]Ordered By: Jose Valdovinos on 57-14-7917Fyjweknqdbx (Bld) [#/Vol]1.2 10*3/uL1.00-4.8Berger HospitalLymphocytes/100 WBC Auto (Bld)Ordered By: Jose Valdovinos on 20-51-6548Vhoxsusnjzh/100 WBC (Bld) 21.4 %.[facility] HospitalH Auto (RBC) [Entitic mass]Ordered By: Jose Valdovinos on 32-20-4964BLG (RBC) [Entitic mass]26.7 pg27.5-35.2FOhioHealth Berger HospitalMCHC Auto (RBC) [Mass/Vol]Ordered By: Jose Valdovinos on 46-20-6589OTQB (RBC) [Mass/Vol]32.5 g/dL32.5-35.6FOhioHealth Berger HospitalMCV Auto (RBC) [Entitic vol]Ordered By: Jose Valdovinos on 14-68-7693HBT (RBC) [Entitic vol]82.1 fL83.5-101Berger HospitalMonocytes Auto (Bld) [#/Vol]Ordered By: Jose Valdovinos on 10-32-6526Pvrzzwkdw (Bld) [#/Vol]0.9 10*3/uL0.0-0.8Berger HospitalMonocytes/100 WBC Auto (Bld) Ordered By: Jose Valdovinos on 77-01-3871Hlupedesx/100 WBC (Bld)15.4 %.Berger HospitalNeutrophils Auto (Bld) [#/Vol]Ordered By: Jose Valdovinos on 49-80-4261Qepgksoqpqm (Bld) [#/Vol]3.4 10*3/uL1.8-7.7FOhioHealth Berger HospitalNeutrophils/100 WBC Auto (Bld)Ordered By: Jose Valdovinos on 10-03-2022 Neutrophils/100 WBC (Bld)59.5 %.Berger HospitalNo Panel InformationOrdered By: Jose Valdovinos on 81-75-8404Yiirizaxp GFR (CKD-EPI)49.983 mL/MinBerger HospitalPharmacy Creatinine Clearance (ChemN/A Berger HospitalNucleated erythrocytes [Presence] in Blood by Automated countOrdered By: Jose Valdovinos on 06-62-8688Ajuxscqdk RBC Auto Ql (Bld) 0.1 /100{WBC}0-0.5FOhioHealth Berger HospitalPlatelet mean volume Auto (Bld) [Entitic vol]Ordered By: Jose Valdovinos on 46-70-0599Yhdabumg mean volume (Bld) [Entitic vol]9.3 fL6.6-10.1FOhioHealth Berger HospitalPlatelets Auto (Bld) [#/Vol]Ordered By: Jose Valdovinos on 56-69-8099Dgpcvvsqy (Bld) [#/Vol]196 10*3/iV584-350NuxhewdscBerger HospitalPotassium [Moles/volume] in Serum or PlasmaOrdered By: Jose Valdovinos on 75-69-5429Rudjwvjqm [Moles/Vol]4.3 mmol/L 3.5-5.1FOhioHealth Berger HospitalProtein [Mass/volume] in Serum or Plasma Ordered By: Jose Valdovinos on 33-83-9612Vdntvrs [Mass/Vol]6.7 g/dL6.4-8.9Berger HospitalRBC Auto (Bld) [#/Vol]Ordered By: Jose Valdovinos on 89-19-1181NKW (Bld) [#/Vol]5.04 10*6/uL3.90-5.60Berger HospitalReticulocytes/100 RBC Auto (Bld)Ordered By: Jose Valdovinos on 10-03-2022 Reticulocytes/100 RBC (Bld)2.5 %0.5-1.5FAvita Health System Bucyrus Hospitalerum or plasma albumin/globulin mass ratioOrdered By: Jose Valdovinos on 10-03-2022 Albumin/Globulin [Mass ratio]1.8 {ratio}[facility] Hospitalerum or plasma anion gap determinationOrdered By: Jose Valdovinos on 93-34-4757Yclck gap [Moles/Vol]11.4 mmol/L6.0-15.0[facility] Berger Hospitalerum or plasma high density lipoprotein (HDL) cholesterol measurementOrdered By: Jose Valdovinos on 60-36-6609Egdmlkleytl in HDL [Mass/Vol]46 mg/oB49-78LafyoxrtrBerger HospitalComment on above:HDL CHOL ATP-III CLASSIFICATION Cardiovascular RiskHDL > or equal to 60 mg/dL LOWHDL < 40 mg/dL HIGHSerum or plasma non-glucuronidated bilirubin measurement (mass/volume)Ordered By: Jose Valdovinos on 10-03-2022 Bilirubin.indirect [Mass/Vol]0.4 mg/dLOhioHealth Berger Hospitalerum or plasma total cholesterol/high density lipoprotein (HDL) cholesterol mass rat Ordered By: Jose Valdovinos on 45-20-3908Jkqsrjdmdws.total/Cholesterol in HDL [Mass ratio]2.8 {ratio}<5.0[facility] Hospitalodium [Moles/volume] in Serum or PlasmaOrdered By: Jose Valdovinos on 04-55-5035Bhjywj [Moles/Vol]137 mmol/L 136-145Berger HospitalTriglyceride [Mass/volume] in Serum or PlasmaOrdered By: Jose Valdovinos on 22-17-5525Zsnuwbicqiql [Mass/Vol]93 mg/dL0-149 Berger HospitalComment on above:TRIG ATP III CLASSIFICATIONTRIG less than 150 mg/dL NormalTRIG 150-199 mg/dL Borderline highTRIG 200-500 mg/dL High TRIG greater than 500 mg/dL Very highStandard traceable to the Center for Disease Conrtrol and Prevention (CDC) test method. Urea nitrogen [Mass/volume] in Serum or PlasmaOrdered By: Jose Valdovinos on 94-91-4534Vcny nitrogen [Mass/Vol]28 mg/dL7-25[facility] Vitamin B12 ser/plasOrdered By: Jose Valdovinos on 53-06-9239Trwoteuan (Vitamin B12) [Mass/Vol]340 pg/qC674-106AflmyiqtaBerger HospitalWBC Auto (Bld) [#/Vol]Ordered By: Jose Valdovinos on 02-00-1405BVQ (Bld) [#/Vol]5.7 10*3/uL4.1-10.5 [facility] HospitalXR elbow LT min 3V*on 33-02-0985XZ elbow LT min 3V*[facility] [employer]-Cap Other XR elbow LT min 3V*[facility] [place] [facility] Check-Cap Other XR elbow LT min 3V*[facility] Check-Cap Other XR elbow LT min 3V*[facility]ET[place] [address]OvlbqF[facility] Check-Cap Other XR elbow LT min 3V*[facility] [place] Check-Cap Other XR elbow LT min 3V*[facility] [employer] Other XR elbow LT min 3V*Patient: Mary Jimenez MR#: [id number] [employer] Other XR elbow LT min 3V*: 1960 Acct:[id number] [place] [employer] Other XR elbow LT min 3V*Age/Sex: 62 / M ADM Date: 09/17/22 [employer] Other XR elbow LT min 3V*Loc: XD Room: Type: [facility] [place] Check-Cap Other XR elbow LT min 3V*Attending Dr: Jose Valdovinos FANCRU Other XR elbow LT min 3V*Copies to: Jose ValdovinosFANCRU Other XR elbow LT min 3V*Ordering Provider: Jose Valdovinos DO [employer] Other XR elbow LT min 3V*Date of Service: 09/17/22[place] [employer] Other XR elbow LT min 3V* XR/XR elbow LT min 3V*: Pain in left elbowLisco [employer] Other XR elbow LT min 3V*4 views of the leftelbow plain film [employer] Other XR elbow LT min 3V*COMPARISON:[facility] [employer] Other XR elbow LT min 3V*HISTORY:Left elbow pain for 2 weeks [employer] Other XR elbow LT min 3V*ACUTE FINDINGS:[facility] [employer] Other XR elbow LT min 3V*DEGENERATIVE CHANGE:Unremarkable [employer] Other XR elbow LT min 3V*SOFT TISSUE FINDINGS:Diffuse soft tissue length. Olecranon soft tissue swelling.[employer] Other XR elbow LT min 3V*JOINT EFFUSION:[employer] Other XR elbow LT min 3V*POSTOP CHANGES:[facility] Other XR elbow LT min 3V*BONE MINERALIZATION:[facility] [employer] Other XR elbow LT min 3V* XR/XR elbow LT min 3V*[employer] Other XR elbow LT min 3V*IMPRESSION: Diffuse and olecranon soft tissue swelling.[employer] Other XR elbow LT min 3V*Impression dictated by: Eagle Prince M.D.09/17/2022 1:24 [facility] [employer] Other XR elbow LT min 3V*Dictation Location: [facility]12 [employer] Other XR elbow LT min 3V*Transcribed By: ISIDRO 09/17/22 [facility] [employer] Other XR elbow LT min 3V*Dictated By: Eagle Prince DO 09/17/[address] [place] [address] [employer] Other XR elbow LT min 3V*Signed By:[employer] Other XR elbow LT min 3V*09/17/22 1324[address]ort [employer] Other Activated partial thromboplastin time (aPTT) in platelet poor plasma by coagulation aOrdered By: Alejandro Ruvalcaba on 09-03-2022 aPTT Coag (PPP) [Time]40.4 s25.1-36.5FOhioHealth Berger HospitalAlanine aminotransferase [Enzymatic activity/volume] in Serum or PlasmaOrdered By: Alejandro Ruvalcaba on 19-75-9448GMO [Catalytic activity/Vol]16 U/L7-52Berger HospitalAlbumin [Mass/volume] in Serum or Plasma by Bromocresol green (BCG) dye binding methoOrdered By: Alejandro Ruvalcaba on 55-07-4782Lymkclo BCG dye [Mass/Vol]4.2 g/dL3.5-5.7FOhioHealth Berger HospitalAlkaline phosphatase [Enzymatic activity/volume] in Serum or PlasmaOrdered By: Alejandro Ruvalcaba on 71-90-8605ALA [Catalytic activity/Vol]61 U/S13-232SjzjrmxjtBerger HospitalAspartate aminotransferase [Enzymatic activity/volume] in Serum or PlasmaOrdered By: Alejandro Ruvalcaba on 71-30-2008PSJ [Catalytic activity/Vol]13 U/A81-13WhalstkvcBerger HospitalBacterial blood cultureOrdered By: Alejandro Ruvalcaba on 14-38-7752Jugfswwb identified Cx Nom (Bld)NO GROWTH 5 DAYS Berger HospitalBasophils Auto (Bld) [#/Vol]Ordered By: Alejandro Ruvalcaba on 52-42-3110Rorkoljgo (Bld) [#/Vol]0.0 10*3/uL0.0-0.2 Berger HospitalBasophils/100 WBC Auto (Bld)Ordered By: Alejandro Ruvalcaba on 40-33-2442Alqkscptc/100 WBC (Bld)0.7 %.Berger HospitalBilirubin Test strip Ql (U)Ordered By: Alejandro Ruvalcaba on 81-30-3518Cbgzoqkiv Ql (U)NegativeNegativeBerger Hospital Bilirubin.total [Mass/volume] in Serum or PlasmaOrdered By: Alejandro Ruvalcaba on 95-96-0646Cwfnbfrxb [Mass/Vol]0.4 mg/dL0.3-1.0[facility] Calcium [Mass/volume] in Serum or PlasmaOrdered By: Alejandro Ruvalcaba on 55-28-1328Gyexstx [Mass/Vol]9.0 mg/dL8.6-10.3FOhioHealth Berger Hospital Carbon dioxide, total [Moles/volume] in Serum or PlasmaOrdered By: Alejandro Ruvalcaba on 00-49-3453MJ9 [Moles/Vol]29.9 mmol/L21.0-31.0Berger HospitalChloride [Moles/volume] in Serum or PlasmaOrdered By: Alejandro Ruvalcaba on 02-51-2636Dhqpmnml [Moles/Vol]100 mmol/G20-896ReieiycrcBerger HospitalColor Auto (U)Ordered By: Alejandro Ruvalcaba on 83-54-9270Yshgc (U) YellowYellowBerger HospitalCreatinine [Mass/volume] in Serum or PlasmaOrdered By: Alejandro Ruvalcaba on 65-02-3209Fphmrgimwy [Mass/Vol]1.42 mg/dL0.70-1.30Berger HospitalEosinophils Auto (Bld) [#/Vol] Ordered By: Alejandro Ruvalcaba on 07-74-0976Awphdyiqxwh (Bld) [#/Vol]0.2 10*3/uL 0.0-0.45Berger HospitalEosinophils/100 WBC Auto (Bld)Ordered By: Alejandro Ruvalcaba on 11-11-5152Ijthnffosjz/100 WBC (Bld)3.2 %.[facility]ger HospitalErythrocyte distribution width Auto (RBC) [Ratio]Ordered By: Alejandro Ruvalcaba on 79-81-3909Prwytjjxedj distribution width (RBC) [Ratio] 16.6 %12.0-14.8Berger HospitalGlobulin Calc (S) [Mass/Vol] Ordered By: Alejandro Ruvalcaba 62-17-2624Gcxoqcds (S) [Mass/Vol]2.5 g/dL Berger HospitalGlucose [Mass/volume] in Serum or PlasmaOrdered By: Alejandro Ruvalcaba 58-56-2953Fwuaisy [Mass/Vol]127 mg/aF94-992WvgvkywgyBerger HospitalComment on above:ADA recommended reference rangeRandom Glucose Reference Range is dependent on time and content of last meal. Glucose of more than 200 mg/dL in a nonstressed, ambulatory subject supports the diagnosisof Diabetes Mellitus.Hematocrit Auto (Bld) [Volume fraction]Ordered By: Alejandro Ruvalcaba on 31-65-2892Dtuljvnxcm (Bld) [Volume fraction]37.0 %38.8-50.0 Berger HospitalHemoglobin [Mass/volume] in BloodOrdered By: Alejandro Ruvalcaba on 28-53-5669Fvjpgsjyiz (Bld) [Mass/Vol]12.2 g/dL13.0-17.0 Berger HospitalKetones Auto test strip (U) [Mass/Vol]Ordered By: Alejandro Ruvalcaba on 69-66-3051Afvdyvl (U) [Mass/Vol]NegativeNegative [facility] HospitalLaboratory - Chemistry and Chemistry - challengeOrdered By: Alejandro Ruvalcaba on 85-36-0789QGL/1.73 sq M.predicted MDRD (S/P/Bld) [Vol rate/Area]55.523 mL/min/{1.73_m2}[facility] HospitalLaboratory - CoagulationOrdered By: Alejandro Ruvalcaba on 15-75-5236VZ Coag (PPP) [Time]11.9 s9.0-12.9Berger HospitalLeukocytes [#/volume] corrected for nucleated erythrocytes in Blood by Automated counOrdered By: Alejandro Ruvalcaba on 73-19-4835MOM corrected for nucl RBC Auto (Bld) [#/Vol]6.7 10*3/uL4.1-10.5FOhioHealth Berger HospitalLymphocytes Auto (Bld) [#/Vol] Ordered By: Alejandro Ruvalcaba on 34-43-0548Dfzjyqwtgst (Bld) [#/Vol]0.8 10*3/uL 1.00-4.8Berger HospitalLymphocytes/100 WBC Auto (Bld)Ordered By: Alejandro Ruvalcaba on 17-01-4013Jhwssixxsab/100 WBC (Bld)11.3 %.[facility] HospitalH Auto (RBC) [Entitic mass]Ordered By: Alejandro Ruvalcaba on 73-70-4085IWT (RBC) [Entitic mass]26.9 pg27.5-35.2FOhioHealth Berger HospitalMCHC Auto (RBC) [Mass/Vol]Ordered By: Alejandro Ruvalcaba on 85-26-3270SBCF (RBC) [Mass/Vol]32.9 g/dL32.5-35.6FOhioHealth Berger HospitalMCV Auto (RBC) [Entitic vol]Ordered By: Alejandro Ruvalcaba on 23-01-7764FIS (RBC) [Entitic vol]82.0 fL83.5-101Ber[facility] HospitalMagnesium [Mass/volume] in Serum or PlasmaOrdered By: Alejandro Ruvalcaba on 09-03-2022 Magnesium [Mass/Vol]2.0 mg/dL1.9-2.7FOhioHealth Berger HospitalMonocyte distribution width [Entitic volume] in Blood by AutomatedOrdered By: Alejandro Ruvalcaba on 51-60-5333Bgvpesmk distribution width Auto (Bld) [Entitic vol]17.05 % 0.00-20.00Berger HospitalMonocytes Auto (Bld) [#/Vol]Ordered By: Alejandro Ruvalcaba on 86-37-4464Hgsbfqwfy (Bld) [#/Vol]0.9 10*3/uL0.0-0.8 Berger HospitalMonocytes/100 WBC Auto (Bld)Ordered By: Alejandro Ruvalcaba on 54-72-9620Hsbywtbqr/100 WBC (Bld)12.9 %.Berger HospitalNeutrophils Auto (Bld) [#/Vol]Ordered By: Alejandro Ruvalcaba on 56-41-8783Juevridkybz (Bld) [#/Vol]4.8 10*3/uL1.8-7.7FOhioHealth Berger HospitalNeutrophils/100 WBC Auto (Bld)Ordered By: Alejandro Ruvalcaba on 09-03-2022 Neutrophils/100 WBC (Bld)71.9 %.[facility] HospitalNitrite Test strip Ql (U)Ordered By: Alejandro Ruvalcaba on 11-15-5651Obfhayg Ql (U)Negative NegativeBerger HospitalNo Panel InformationOrdered By: Alejandro Ruvalcaba on 45-43-4365Xwdzsdxt Creatinine Clearance (Chem72.62[facility] HospitalNucleated erythrocytes [Presence] in Blood by Automated countOrdered By: Alejandro Ruvalcaba on 11-53-5469Qpmygbisf RBC Auto Ql (Bld)0.1 /100{WBC}0-0.5FOhioHealth Berger HospitalPlatelet mean volume Auto (Bld) [Entitic vol]Ordered By: Alejandro Ruvalcaba on 72-33-7278Baibxono mean volume (Bld) [Entitic vol]9.2 fL6.6-10.1FOhioHealth Berger HospitalPlatelet poor plasma international normalized ratio (INR) by coagulation assay (relatOrdered By: Alejandro Ruvalcaba on 07-41-8087SSZ Coag (PPP) [Relative time]1.0 {INR} [facility] HospitalComment on above:INR Therapeutic Range A) Pre- and Peroperative OAT started two weeks before surgery. NOT HIP SURGERY: 1.5 - 2.5 HIP SURGERY: 2 - 3B) Primary and secondary prevention of venous THROMBOSIS: 2 - 3C) Active venous thrombosis, pulmonary embolismand prevention of recurrent venous thrombosis: 2 - 3D) Prevention of arterial thromboembolismincluding patients with mechanical heart valves: 3 - 4.5Platelets Auto (Bld) [#/Vol] Ordered By: Alejandro Ruvalcaba on 72-91-8140Olriomdmu (Bld) [#/Vol]191 10*3/uL 150-450[facility] HospitalPotassium [Moles/volume] in Serum or PlasmaOrdered By: Alejandro Ruvalcaba on 86-36-9467Hqjbvfgau [Moles/Vol]4.2 mmol/L 3.5-5.1FOhioHealth Berger HospitalProtein Auto test strip (U) [Mass/Vol] Ordered By: Alejandro Ruvalcaba on 53-59-8184Bvmtoeb (U) [Mass/Vol]Negative NegativeBerger HospitalProtein [Mass/volume] in Serum or PlasmaOrdered By: Alejandro Ruvalcaba on 51-33-4346Ioonuyg [Mass/Vol]6.7 g/dL 6.4-8.9Berger HospitalRBC Auto (Bld) [#/Vol]Ordered By: Alejandro Ruvalcaba on 22-65-8506NBN (Bld) [#/Vol]4.51 10*6/uL3.90-5.60OhioHealth Berger Hospitalerum or plasma albumin/globulin mass ratioOrdered By: Alejandro Ruvalcaba on 69-63-7844Hjxsnwz/Globulin [Mass ratio]1.7 {ratio}[facility] Hospitalerum or plasma anion gap determinationOrdered By: Alejandro Ruvalcaba on 61-16-0704Lorhk gap [Moles/Vol]10.3 mmol/L6.0-15.0[facility] Hospitalodium [Moles/volume] in Serum or PlasmaOrdered By: Alejandro Ruvalcaba on 16-52-6261Qtwzfw [Moles/Vol]136 mmol/Q667-879NhzlevkkbOhioHealth Berger Hospitalpecific gravity Auto test strip (U) [Rel density]Ordered By: Alejandro Ruvalcaba on 77-78-8991Qqawjbqn gravity (U) [Rel density]1.010 1.001-1.030Berger HospitalUrea nitrogen [Mass/volume] in Serum or PlasmaOrdered By: Alejandro Ruvalcaba on 51-28-0042Acqk nitrogen [Mass/Vol]23 mg/dL7-25Berger HospitalUrine clarity by refractometry automatedOrdered By: Alejandro Ruvalcaba on 47-46-8723Psfwprs Refractometry automated (U)ClearCleLakeHealth TriPoint Medical CenterUrine glucose measurement by automated test strip (mass/volume)Ordered By: Alejandro Ruvalcaba on 46-95-9932Vdpqgbf Auto test strip (U) [Mass/Vol]Normal mg/dLNormDelaware County HospitalUrine hemoglobin detection by automated test stripOrdered By: Alejandro Ruvalcaba on 17-95-9661Kbtrszumre Auto test strip Ql (U)Negative NegativeBerger HospitalUrine leukocyte esterase detection by automated test stripOrdered By: Alejandro Ruvalcaba on 75-88-1987Ocxffvkkt esterase Auto test strip Ql (U)NegativeNegativeBerger Hospital Urobilinogen Auto test strip (U) [Mass/Vol]Ordered By: Alejandro Ruvalcaba on 17-65-1624Vsrjuulwvewg (U) [Mass/Vol]Normal mg/dLNormDelaware County HospitalWBC Auto (Bld) [#/Vol]Ordered By: Alejandro Ruvalcaba on 09-03-2022 WBC (Bld) [#/Vol]6.7 10*3/uL4.1-10.5FOhioHealth Berger HospitalpH Auto test strip (U)Ordered By: Alejandro Ruvalcaba on 89-48-2246mQ (U)6.5 [pH]5.0-9.0 Berger HospitalA1C HEMOGLOBINon 94-30-8538GmN1d (Bld) [Mass fraction]5.7 %[employer] Other HbA1c (Bld) [Mass fraction]on 57-72-7520Y0R HEMOGLOBIN [facility] Check-Cap Other Office Visit (Cardiology)on 31-83-7830Adrrrs-up visit Diagnoses/Problems Assessed Essential hypertension (401.9) (I10) [...] 2 daimes a day Biotin Maximum Strength 02152 MCG Oral TabletTAKE 1 TABLET DAILY. Clopidogrel [...] 9:02:41 PM NonMedication Lat (more content not included)...NormalUH TouchworksTobacco Screening.on 25-25-1703Zzyhz depression screening assessmentNoSnoqualmie Valley Hospital [employer] DO Work Phone: Fall risk assessmentb) One or more falls in the last yearSnoqualmie Valley Hospital [employer] DO Work Phone: Tobacco use status CPHSb) [facility] ManagerComplete DO Work Phone: Anisocytosis LM Ql (Bld)Ordered By: Christine Mitchell on 03-31-5317Xzudoginnnvy Ql (Bld)[facility] Basophils Auto (Bld) [#/Vol]Ordered By: Christine Mitchell on 56-91-4728Ynmglnipm (Bld) [#/Vol]0.1 10*3/uL0.0-0.2FOhioHealth Berger HospitalBasophils/100 WBC Auto (Bld)Ordered By: Christine Mitchell on 84-14-9373Fphzfdvwp/100 WBC (Bld)1.1 %.Berger HospitalC reactive protein [Mass/volume] in Serum or PlasmaOrdered By: Christine Mitchell on 75-71-9888TSF [Mass/Vol]1.0 mg/dL0.0-1.0 Berger HospitalCOVID-19 SOFIAOrdered By: Rafael Zheng on 23-74-2979XXLF-CoV+SARS-CoV-2 (COVID-19) Ag IA.rapid Ql (Resp)NegativeNegative Berger HospitalComment on above:This is a duplicate Lizzy SARS Antigen (BLAKE) result to be used for statistical tracking purpose only. Eosinophils Auto (Bld) [#/Vol]Ordered By: Christine Mitchell on 55-90-0428Rfpyfdviyup (Bld) [#/Vol]0.5 10*3/uL0.0-0.45[facility] Eosinophils/100 WBC Auto (Bld)Ordered By: Christine Mitchell on 06-12-2022 Eosinophils/100 WBC (Bld)9.0 %.Berger HospitalErythrocyte distribution width Auto (RBC) [Ratio]Ordered By: Christine Mitchell on 06-12-2022 Erythrocyte distribution width (RBC) [Ratio]18.5 %12.0-14.8Berger HospitalErythrocyte sedimentation rate by Photometric methodOrdered By: Christine Mitchell on 67-92-9187QQZ Photometric method (Bld) [Velocity]11 mm/hr0-19 Berger HospitalHematocrit Auto (Bld) [Volume fraction]Ordered By: Christine Mitchell on 10-68-2930Bzoehqvpyh (Bld) [Volume fraction]38.9 %38.8-50.0 Berger HospitalHemoglobin [Mass/volume] in BloodOrdered By: Christine Mitchell on 94-38-6827Rdyvfcamup (Bld) [Mass/Vol]12.3 g/dL13.0-17.0 Berger HospitalHypochromia LM Ql (Bld)Ordered By: Christine Mitchell on 08-45-6827Wygbmxyadgx Ql (Bld)SlightBerger Hospital Leukocytes [#/volume] corrected for nucleated erythrocytes in Blood by Automated counOrdered By: Christine Mitchell on 57-16-4153PZO corrected for nucl RBC Auto (Bld) [#/Vol]5.0 10*3/uL4.1-10.5FOhioHealth Berger HospitalLymphocytes Auto (Bld) [#/Vol]Ordered By: Christine Mitchell on 55-11-8256Pnxutcznuve (Bld) [#/Vol]1.0 10*3/uL1.00-4.8Berger HospitalLymphocytes/100 WBC Auto (Bld)Ordered By: Christine Mitchell on 41-16-1027Menreovtgew/100 WBC (Bld)19.8 % .[facility] HospitalH Auto (RBC) [Entitic mass]Ordered By: Christine Mitchell on 63-03-3339SEH (RBC) [Entitic mass]24.9 pg27.5-35.2FOhioHealth Berger HospitalMCHC Auto (RBC) [Mass/Vol]Ordered By: Christine Mitchell on 84-36-5826ZSWT (RBC) [Mass/Vol]31.6 g/dL32.5-35.6FOhioHealth Berger HospitalMCV Auto (RBC) [Entitic vol]Ordered By: Christine Mitchell on 49-36-6971OYG (RBC) [Entitic vol]78.8 fL83.5-101Berger HospitalMicrocytes LM Ql (Bld)Ordered By: Christine Mitchell on 11-33-4905Kvnpdeejoi Ql (Bld)Moderate Berger HospitalMonocytes Auto (Bld) [#/Vol]Ordered By: Christine Mitchell on 96-69-5697Zuxwjuzkn (Bld) [#/Vol]0.7 10*3/uL0.0-0.8Berger HospitalMonocytes/100 WBC Auto (Bld)Ordered By: Christine Mitchell on 54-34-2785Btliwpgbz/100 WBC (Bld)13.7 %.[facility] Neutrophils Auto (Bld) [#/Vol]Ordered By: Christine Mitchell on 81-55-6596Dajbudqmkrg (Bld) [#/Vol]2.8 10*3/uL1.8-7.7FOhioHealth Berger HospitalNeutrophils/100 WBC Auto (Bld)Ordered By: Christine Mitchell on 79-66-4268Ncpguotrrqc/100 WBC (Bld) 56.4 %.Berger HospitalNo Panel InformationOrdered By: Rafael Zheng on 72-74-6032BCYS Antigen (LFIA)[facility] HospitalARS Antigen (LFIA)Berger HospitalNucleated erythrocytes [Presence] in Blood by Automated countOrdered By: Christine Mitchell on 20-29-9513Sfuqmhcbf RBC Auto Ql (Bld)0.1 /100{WBC}0-0.5FOhioHealth Berger HospitalPlatelet adequacy [Presence] in Blood by Light microscopyOrdered By: Christine Mitchell on 36-65-8695Pijgzazzn LM Ql (Bld)NormalNormalBerger Hospital Platelet mean volume Auto (Bld) [Entitic vol]Ordered By: Christine Mitchell on 25-30-7546Glyphhwu mean volume (Bld) [Entitic vol]9.3 fL6.6-10.1FOhioHealth Berger HospitalPlatelet morphology finding [Identifier] in BloodOrdered By: Christine Mitchell on 09-50-0544Fjvphecb morphology finding Nom (Bld)N/AFOhioHealth Berger HospitalPlatelets Auto (Bld) [#/Vol]Ordered By: Christine Mitchell on 37-00-7330Aokspcpfa (Bld) [#/Vol]213 10*3/fU825-979IdjhttpbhBerger HospitalPlatelets Large [Presence] in Blood by Light microscopyOrdered By: Christine Mitchell on 06-68-1953Zimoxpzzg Large LM Ql (Bld)[facility] HospitalPolychromasia [Presence] in Blood by Light microscopyOrdered By: Christine Mitchell on 33-10-6583Cmrgqwgiggrea LM Ql (Bld)[facility] HospitalRBC Auto (Bld) [#/Vol]Ordered By: Christine Mitchell on 70-76-8581WCG (Bld) [#/Vol]4.94 10*6/uL3.90-5.60Berger HospitalRBC morphology Ordered By: Christine Mitchell on 71-09-9218DMU morphology finding Nom (Bld)N/A Berger HospitalWBC Auto (Bld) [#/Vol]Ordered By: Christine Mitchell on 96-17-5261EMQ (Bld) [#/Vol]5.0 10*3/uL4.1-10.5FOhioHealth Berger HospitalBasophils Auto (Bld) [#/Vol]Ordered By: Rafael Zheng on 30-76-4089Yxmcipfnp (Bld) [#/Vol]0.1 10*3/uL0.0-0.2FOhioHealth Berger HospitalBasophils/100 WBC Auto (Bld)Ordered By: Rafael Zheng on 64-21-0046Vhltlgvpk/100 WBC (Bld)1.2 %. Berger HospitalCreatinine and Glomerular filtration rate.predicted panel (S/P/Bld)Ordered By: Rafael Zheng on 79-36-1862Vfahzunsnn [Mass/Vol]1.62 mg/dL0.64-1.27Berger HospitalEosinophils Auto (Bld) [#/Vol]Ordered By: Rafael Zheng on 63-67-3564Zthgmmnwbij (Bld) [#/Vol]0.3 10*3/uL0.0-0.45Berger HospitalEosinophils/100 WBC Auto (Bld) Ordered By: Rafael Zheng on 83-63-6318Jlznccsdncz/100 WBC (Bld)6.9 %.Berger HospitalErythrocyte distribution width Auto (RBC) [Ratio]Ordered By: Rafael Zheng on 19-09-7608Cqybugrtjob distribution width (RBC) [Ratio]18.3 % 12.0-14.8Berger HospitalEstimated glomerular filtration rate (GFR) non- AmericanOrdered By: Rafael Zheng on 89-56-5881OMG/1.73 sq M.predicted among non-blacks MDRD (S/P/Bld) [Vol rate/Area]43 mL/MinBerger HospitalHematocrit Auto (Bld) [Volume fraction]Ordered By: Rafael Zheng on 53-67-1802Qbjbzpdsju (Bld) [Volume fraction]39.3 %38.8-50.0Berger HospitalHemoglobin [Mass/volume] in BloodOrdered By: Rafael Zheng on 30-09-4480Yoyauonfyf (Bld) [Mass/Vol]12.4 g/dL13.0-17.0Berger HospitalLeukocytes [#/volume] corrected for nucleated erythrocytes in Blood by Automated counOrdered By: Rafael Zheng on 12-54-4754GXI corrected for nucl RBC Auto (Bld) [#/Vol]5.1 10*3/uL4.1-10.5FOhioHealth Berger Hospital Lymphocytes Auto (Bld) [#/Vol]Ordered By: Rafael Zheng on 92-42-7481Ptzcpowutco (Bld) [#/Vol]0.9 10*3/uL1.00-4.8Berger HospitalLymphocytes/100 WBC Auto (Bld)Ordered By: Rafael Zheng on 64-64-8883Llmdxwtxdsk/100 WBC (Bld) 18.5 %.Berger HospitalMCH Auto (RBC) [Entitic mass]Ordered By: Rafael Zheng on 76-86-0750DQJ (RBC) [Entitic mass]24.2 pg27.5-35.2FOhioHealth Berger HospitalMCHC Auto (RBC) [Mass/Vol]Ordered By: Rafael Zheng on 33-44-2712NTMZ (RBC) [Mass/Vol]31.6 g/dL32.5-35.6FOhioHealth Berger HospitalMCV Auto (RBC) [Entitic vol]Ordered By: Rafael Zheng on 35-90-5826SZX (RBC) [Entitic vol]76.7 fL83.5-101Berger HospitalMonocytes Auto (Bld) [#/Vol]Ordered By: aRfael Zheng on 12-07-5262Yntcfolgc (Bld) [#/Vol]0.5 10*3/uL0.0-0.8Berger HospitalMonocytes/100 WBC Auto (Bld) Ordered By: Rafael Zheng on 65-93-3575Btgyzqiyd/100 WBC (Bld)9.6 %.Berger HospitalNeutrophils Auto (Bld) [#/Vol]Ordered By: Rafael Zheng on 29-65-7080Gkjetrbjmai (Bld) [#/Vol]3.2 10*3/uL1.8-7.7FOhioHealth Berger HospitalNeutrophils/100 WBC Auto (Bld)Ordered By: Rafael Zheng on 06-02-2022 Neutrophils/100 WBC (Bld)63.8 %.Berger HospitalNo Panel InformationOrdered By: Rafael Zheng on 08-99-5660Fcrjaejae GFR () 53 mL/MinBerger HospitalComment on above:GFR estimated reference range: According to KDOQI guidelines, <60 ml/min/1.73m2 is sufficient todiagnose a patient with chronic kidney disease.Pharmacy Creatinine Clearance (ChemN/[facility] CenterNucleated erythrocytes [Presence] in Blood by Automated countOrdered By: Rafael Zheng on 91-11-9777Fqbtcnuyu RBC Auto Ql (Bld)0.1 /100{WBC}0-0.5FOhioHealth Berger HospitalPlatelet mean volume Auto (Bld) [Entitic vol]Ordered By: Rafael Zheng on 59-70-2918Yqwxuuaj mean volume (Bld) [Entitic vol]8.7 fL6.6-10.1FOhioHealth Berger Hospital Platelets Auto (Bld) [#/Vol]Ordered By: Rafael Zheng on 44-18-3437Svwhxjehe (Bld) [#/Vol]199 10*3/mO921-617NfkbxymgqBerger HospitalRBC Auto (Bld) [#/Vol]Ordered By: Rafael Zheng on 29-27-7329BQX (Bld) [#/Vol]5.13 10*6/uL 3.90-5.60[facility] Berger Hospitalerum or plasma anion gap determinationOrdered By: Rafael Zheng on 36-09-6006Awvls gap [Moles/Vol]15.3 mmol/L6.0-15.0[facility] Hospitalerum or plasma calcium measurement (mass/volume)Ordered By: Rafael Zheng on 48-86-2338Yspfvzy [Mass/Vol] 9.1 mg/dL8.2-10.2FAvita Health System Bucyrus Hospitalerum or plasma chloride measurement (moles/volume)Ordered By: Rafael Zheng on 23-82-0950Srylpvck [Moles/Vol]99 mmol/L72-502TtmppteyrOhioHealth Berger Hospitalerum or plasma glucose measurement (mass/volume)Ordered By: Rafael Zheng on 25-85-9951Frrhejz [Mass/Vol]107 mg/hZ06-235KhnnqltdpBerger HospitalComment on above:ADA recommended reference rangeRandom Glucose Reference Range is dependent on time and content of last meal. Glucose of more than 200 mg/dL in a nonstressed, ambulatory subject supports the diagnosisof Diabetes Mellitus.Serum or plasma potassium measurement (moles/volume)Ordered By: Rafael Zheng on 06-02-2022 Potassium [Moles/Vol]4.5 mmol/L3.5-5.1FAvita Health System Bucyrus Hospitalerum or plasma sodium measurement (moles/volume)Ordered By: Rafael Zheng on 06-02-2022 Sodium [Moles/Vol]134 mmol/B851-455HiesasmuuOhioHealth Berger Hospitalerum or plasma total carbon dioxide measurement (moles/volume)Ordered By: Rafael Zheng on 38-97-5257MD9 [Moles/Vol]24.2 mmol/L22.0-30.0[facility] Serum or plasma urea nitrogen measurement (mass/volume)Ordered By: Rafael Zheng on 13-74-3861Gkeo nitrogen [Mass/Vol]27 mg/dL9-23Berger HospitalWBC Auto (Bld) [#/Vol]Ordered By: Rafael Zheng on 87-01-6739BPR (Bld) [#/Vol]5.1 10*3/uL4.1-10.5FOhioHealth Berger HospitalCHEMISTRYOrdered By: SYSTEM SYSTEM on 17-61-5388Jlhezyonsr [Mass/Vol]1.3 mg/dLNormal0.5 - 1.3 mg/dL [facility] RemisolGFR/1.73 sq M.predicted among blacks MDRD (S/P/Bld) [Vol rate/Area] mL/min/1.73 c4Yojxkn>=59mL/min/1.73 m2[facility] [place] Chem SGFR/1.73 sq M.predicted among non-blacks MDRD (S/P/Bld) [Vol rate/Area]56 mL/min/1.73 m2Low>=59mL/min/1.73 m2 [facility] Chem SCHEMISTRYOrdered By: SYSTEM SYSTEM on 41-98-6654BAM [Mass/Vol]0.7 mg/dLNormal<=1.9mg/dLFT RemisolHEMATOLOGYOrdered By: Venkatesh Piedra on 93-52-4827Nfngozceagzj Ql (Bld)Present (05/27/22 10:37 AM)NormalB[facility] AND [facility] [place] HemeManSSErythrocyte distribution width (RBC) [Ratio]18.4 %High10.9 - 14.2 %[facility] HemeAutoSSHematocrit (Bld) [Volume fraction] 38.6 %Mfiatb61.7 - 49.0 %[facility] HemeAutoSSHemoglobin (Bld) [Mass/Vol]12.5 g/dLLow 13.5 - 17.5 gm/dLFTMC HemeAutoSSHypochromia Auto Ql (Bld)Present (05/27/22 10:37 AM)NormalFT HemeManSSMCH (RBC) [Entitic mass]24.3 pgLow27.0 - 34.0 pgFTMC HemeAutoSSMCHC (RBC) [Mass/Vol]32.3 g/wFQrviqj25.4 - 36.0 gm/dLFTMC HemeAutoSSMCV (RBC) [Entitic vol]75.2 fLLow80.0 - 100.0 fLFTMC HemeAutoSS Microcytes Ql (Bld)Present (05/27/22 10:37 AM)NormalFT HemeManSSMorphology Williams (Bld) [Interp]See Morphology (05/27/22 10:37 AM)NormalFT HemeManSSPlatelet mean volume (Bld) [Entitic vol] 8.9 fLNormal6.4 - 10.8 fLFTMC HemeAutoSSPlatelets (Bld) [#/Vol]219.0 E9/LNormal 150.0 - 500.0 E9/LFTMC HemeAutoSSPolychromasia LM Ql (Bld)Present (05/27/22 10:37 AM)NormalFTMC HemeManSSRBC (Bld) [#/Vol]5.1 E12/LNormal4.3 - 5.9 E12/LFTMC HemeAutoSSSed Rate Escadomui12 mm/hNormal0 - 19 mm/hrFTMC HemeAutoSS WBC corrected for nucl RBC Auto (Bld) [#/Vol]8.2 E9/LNormal4.0 - 11.0 E9/LFTMC HemeAutoSSHEMATOLOGYOrdered By: SYSTEM SYSTEM on 11-07-5756Srptjtpmi/100 WBC (Bld)1.0 %Normal0.0 - 2.0 %[facility] HemeAutoSSBasophils/Leukocytes Auto (Bld) [Pure # fraction]0.1 E9/LNormal0.0 - 0.2 E9/LFTMC HemeAutoSSEosinophils/100 WBC (Bld) 7.7 %Normal0.0 - 8.0 %[facility] HemeAutoSSEosinophils/Leukocytes Auto (Bld) [Pure # fraction]0.6 E9/LHigh0.0 - 0.5 E9/LFTMC HemeAutoSSLymphocytes/100 WBC (Bld)13.6 %Low14.0 - 50.0 %[facility] HemeAutoSSLymphocytes/Leukocytes Auto (Bld) [Pure # fraction]1.1 E9/LNormal1.0 - 4.0 E9/LFTMC HemeAutoSSMonocytes/100 WBC (Bld)8.4 % Normal4.0 - 14.0 %[facility] HemeAutoSSMonocytes/Leukocytes Auto (Bld) [Pure # fraction]0.7 E9/LNormal0.2 - 1.0 E9/LFTMC HemeAutoSSNeutrophils/100 WBC (Bld) 69.3 %Ezamwu93.0 - 75.0 %[facility] HemeAutoSSNeutrophils/Leukocytes Auto (Bld) [Pure # fraction]5.7 E9/LNormal2.0 - 7.5 E9/LFTMC HemeAutoSSReference Laboratory TestingOrdered By: Yadi Bender on 34-70-1979Oxqz Wrcj568345Dwjbbfc Interpretation CodeFT SendOutsSSTest NameIL 6Invalid Interpretation CodeFTMC SendOutsSSBasophils Auto (Bld) [#/Vol]Ordered By: Cathy Zavala on 05-12-2022 Basophils (Bld) [#/Vol]0.0 10*3/uL0.0-0.2FOhioHealth Berger Hospital Basophils/100 WBC Auto (Bld)Ordered By: Cathy Zavala on 87-52-4649Nruskfmyx/100 WBC (Bld)0.4 %.Berger HospitalEosinophils Auto (Bld) [#/Vol] Ordered By: Cathy Zavala on 78-35-4489Vbnetgbtymm (Bld) [#/Vol]0.5 10*3/uL 0.0-0.45Berger HospitalEosinophils/100 WBC Auto (Bld)Ordered By: Cathy Zavala on 19-15-5930Nzaulzfzmht/100 WBC (Bld)7.4 %.Berger HospitalErythrocyte distribution width Auto (RBC) [Ratio]Ordered By: Cathy Zavala on 42-47-4121Ndqhuckyisn distribution width (RBC) [Ratio]18.4 % 12.0-14.8Berger HospitalHematocrit Auto (Bld) [Volume fraction]Ordered By: Cathy Zavala on 62-08-7749Gxgwlrydql (Bld) [Volume fraction]39.8 %38.8-50.0Ber[facility] HospitalHemoglobin [Mass/volume] in BloodOrdered By: Cathy Zavala on 55-81-2183Nrpipnjkvl (Bld) [Mass/Vol]12.4 g/dL13.0-17.0Ber[facility] HospitalLaboratory - Hematology and Cell countsOrdered By: Cathy Zavala on 16-83-0859Edtebyxyc RBC/100 WBC (Bld) [Ratio]0.1 %0-0.5FOhioHealth Berger HospitalLeukocytes [#/volume] in Blood by Automated countOrdered By: Cathy Zavala on 21-54-8074NUK (Bld) [#/Vol]7.1 10*3/uL4.5-11.0Berger HospitalLymphocytes Auto (Bld) [#/Vol]Ordered By: Cathy Zavala on 86-06-2401Mwlwwvolkcv (Bld) [#/Vol]1.3 10*3/uL1.00-4.8Berger HospitalLymphocytes/100 WBC Auto (Bld)Ordered By: Cathy Zavala on 58-74-6149Xvesjdrkhiz/100 WBC (Bld)18.7 % .Berger HospitalMCH Auto (RBC) [Entitic mass]Ordered By: Cathy Zavala on 70-43-2637ODF (RBC) [Entitic mass]24.1 pg27.5-35.2FOhioHealth Berger HospitalMCHC Auto (RBC) [Mass/Vol]Ordered By: Cathy Zavala on 72-17-2442YAQV (RBC) [Mass/Vol]31.3 g/dL32.5-35.6FOhioHealth Berger HospitalMCV Auto (RBC) [Entitic vol]Ordered By: Cathy Zavala on 96-46-3476DSC (RBC) [Entitic vol]77.2 fL83.5-101Berger HospitalMonocytes Auto (Bld) [#/Vol]Ordered By: Cathy Zavala on 69-61-8629Xfsahlxav (Bld) [#/Vol] 0.8 10*3/uL0.0-0.8Berger HospitalMonocytes/100 WBC Auto (Bld) Ordered By: Cathy Zavala on 26-81-0683Gmjwpmmmz/100 WBC (Bld)10.6 %.Berger HospitalNeutrophils Auto (Bld) [#/Vol]Ordered By: Cathy Zavala on 26-37-4494Oycxgwiggkw (Bld) [#/Vol]4.4 10*3/uL1.8-7.7FOhioHealth Berger HospitalNeutrophils/100 WBC Auto (Bld)Ordered By: Cathy Zavala on 50-90-4759Iykwasywgpe/100 WBC (Bld)62.9 %.[facility] Platelet mean volume Auto (Bld) [Entitic vol]Ordered By: Cathy Zavala on 89-25-5085Nndqqiic mean volume (Bld) [Entitic vol]9.4 fL6.6-10.1FOhioHealth Berger HospitalPlatelets Auto (Bld) [#/Vol]Ordered By: Cathy Zavala on 29-89-7633Tezxstqlz (Bld) [#/Vol]207 10*3/lF113-123DrquuexebBerger HospitalRBC Auto (Bld) [#/Vol]Ordered By: Cathy Zavala on 71-80-8532KSF (Bld) [#/Vol]5.15 10*6/uL3.90-5.60Ber[facility] HospitalCholesterol [Mass/volume] in Serum or PlasmaOrdered By: Cathy Zavala on 05-04-2022 Cholesterol [Mass/Vol]148 mg/yO642-882VtufevgxfBerger HospitalComment on above:Chol less than 200 mg/dl low riskChol 201-239 mg/dl borderline riskChol 240 mg/dl and greater high riskCholesterol in LDL Calc [Mass/Vol]Ordered By: Cathy Zavala on 35-46-1977Llbzfulnnub in LDL [Mass/Vol]78 mg/dL0-100Berger HospitalComment on above:LDL ATP III CLASSIFICATIONLDL less than 100 mg/dL OptimalLDL 100-129 mg/dL Near or above cuznzijDFG254-189 mg/dL Borderline highLDL 160-189 mg/dL HighLDL greater than 189 mg/dL Very high Cholesterol in VLDL Calc [Mass/Vol]Ordered By: Cathy Zavala on 05-04-2022 Cholesterol in VLDL [Mass/Vol]29 mg/dLBerger Hospital Creatinine and Glomerular filtration rate.predicted panel (S/P/Bld)Ordered By: Cathy Zavala on 54-78-4657Fukkssktlq [Mass/Vol]1.26 mg/dL0.64-1.27Berger HospitalEstimated glomerular filtration rate (GFR) non- AmericanOrdered By: Cathy Zavala on 04-77-6652QWY/1.73 sq M.predicted among non-blacks MDRD (S/P/Bld) [Vol rate/Area]58 mL/MinBerger HospitalGlucose mean value [Mass/volume] in Blood Estimated from glycated hemoglobinOrdered By: Cathy Zavala on 07-20-0725Xwzbgwb glucose Estimated from glycated hemoglobin (Bld) [Mass/Vol]128 mg/dLBerger Hospital Hemoglobin A1c percentageOrdered By: Cathy Zavala on 63-39-9362OzV7i (Bld) [Mass fraction]6.1 %4.3-5.6FOhioHealth Berger HospitalComment on above: Increased risk for diabetes: 5.7 - 6.4diabetes: >6.4glycemic control for adults with diabetes: <7.0No Panel InformationOrdered By: Cathy Zavala on 74-18-1916Hlwfyjrqg GFR ()> 60 mL/MinBerger HospitalComment on above:GFR estimated reference range: According to KDOQI guidelines, <60 ml/min/1.73m2 is sufficient todiagnose a patient with chronic kidney disease.Pharmacy Creatinine Clearance (Chem81.70OhioHealth Berger Hospitalerum or plasma anion gap determinationOrdered By: Cathy Zavala on 86-54-6303Geqop gap [Moles/Vol]13.9 mmol/L6.0-15.0[facility] Berger Hospitalerum or plasma calcium measurement (mass/volume)Ordered By: Cathy Zavala on 02-02-0583Omanazo [Mass/Vol]8.8 mg/dL8.2-10.2FAvita Health System Bucyrus Hospitalerum or plasma chloride measurement (moles/volume)Ordered By: Cathy Zavala on 85-99-4611Wkzuktxr [Moles/Vol]101 mmol/H32-456DwegtrxyyOhioHealth Berger Hospitalerum or plasma glucose measurement (mass/volume)Ordered By: Cathy Zavala on 36-99-2620Spommpe [Mass/Vol]92 mg/qX30-796DuwmhlbuyBerger HospitalComment on above:ADA recommended reference rangeRandom Glucose Reference Range is dependent on time and content of last meal. Glucose of more than 200 mg/dL in a nonstressed, ambulatory subject supports the diagnosisof Diabetes Mellitus.Serum or plasma high density lipoprotein (HDL) cholesterol measurementOrdered By: Cathy Zavala on 64-81-8640Ufmvzsedfse in HDL [Mass/Vol] 40 mg/eO68-02WyiruikyyBerger HospitalComment on above:HDL CHOL ATP-III CLASSIFICATION Cardiovascular RiskHDL > or equal to 60 mg/dL LOWHDL < 40 mg/dL HIGHSerum or plasma potassium measurement (moles/volume)Ordered By: Cathy Zavala on 46-97-1392Ycxqhpiil [Moles/Vol]4.3 mmol/L3.5-5.1FAvita Health System Bucyrus Hospitalerum or plasma sodium measurement (moles/volume)Ordered By: Cathy Zavala on 71-66-0100Rcangc [Moles/Vol]140 mmol/T239-443FjuzqdrsqOhioHealth Berger Hospitalerum or plasma total carbon dioxide measurement (moles/volume) Ordered By: Cathy Zavala on 71-56-4455WC0 [Moles/Vol]29.4 mmol/L22.0-30.0 [facility] Berger Hospitalerum or plasma total cholesterol/high density lipoprotein (HDL) cholesterol mass ratOrdered By: Cathy Zavala on 05-04-2022 Cholesterol.total/Cholesterol in HDL [Mass ratio]3.7 {ratio}<5.0OhioHealth Berger Hospitalerum or plasma urea nitrogen measurement (mass/volume) Ordered By: Cathy Zavala on 69-67-6114Ugtw nitrogen [Mass/Vol]16 mg/dL9-23 Berger HospitalTriglyceride [Mass/volume] in Serum or Plasma Ordered By: Cathy Zavala on 10-71-7838Zmkobvtocusy [Mass/Vol]149 mg/vU98-126 [facility] HospitalComment on above:TRIG ATP III CLASSIFICATIONTRIG less than 150 mg/dL NormalTRIG 150-199 mg/dL Borderline highTRIG 200-500 mg/dL High TRIG greater than 500 mg/dL Very highStandard traceable to the Center for Disease Conrtrol and Prevention (CDC) test method. Automated erythrocytes count in urine sediment (number/area)Ordered By: Amarilis Jameson on 83-38-0498DDG Auto (Urine sed) [#/Area]None seen [HPF]0-4FOhioHealth Berger HospitalAutomated leukocytes count in urine sediment (number/area)Ordered By: Amarilis Jameson on 75-96-6735WYW Auto (Urine sed) [#/Area] 0-1 [HPF]0-4FOhioHealth Berger HospitalBasophils Auto (Bld) [#/Vol]Ordered By: Amarilis Jameson on 52-31-0123Qgtblznqi (Bld) [#/Vol]0.1 10*3/uL0.0-0.2FOhioHealth Berger HospitalBasophils/100 WBC Auto (Bld)Ordered By: Amarilis Gisell on 80-72-2733Mwbbqpabd/100 WBC (Bld)1.1 %.[facility] Bilirubin Test strip Ql (U)Ordered By: Amarilis Jameson on 99-26-4009Wtdgfzkww Ql (U) NegativeNegativeBerger HospitalCOVID-19 Positive/Negative Ordered By: Amarilis Jameson on 34-92-9739XXLL-CoV-2 (COVID-19) N gene LATOYA+probe Ql (Resp)NegativeNegSelect Medical Cleveland Clinic Rehabilitation Hospital, AvonComment on above:Testing for SARS-CoV-2 by RT-PCRThis test was developed and its performance characteristics determined by [employer] and validated at the [facility]. This test has not been FDA [...] unless the authorization is terminated or revoked sooner.COVID-19 SOFIAOrdered By: Amarilis Jameson on 71-99-3211QLFQ-CoV+SARS-CoV-2 (COVID-19) Ag IA.rapid Ql (Resp)NegativeNegSelect Medical Cleveland Clinic Rehabilitation Hospital, AvonComment on above:This is a duplicate Lizzy SARS Antigen (BLAKE) result to be used for statistical tracking purpose only.Color Auto (U)Ordered By: Amarilis Jameson on 17-85-1873Tzjxw (U)Yellow YellowBerger HospitalCreatinine (Bld) [Mass/Vol]Ordered By: Amarilis Jameson on 87-06-8521Zybgrdaycg [Mass/Vol]1.7 mg/dL0.6-1.3FOhioHealth Berger HospitalComment on above:ER/ESD physician is notified/shown all ISTAT results.Critical values may be confirmed by laboratorytesting ifdeemed necessary by ER attending doctor.Creatinine and Glomerular filtration rate.predicted panel (S/P/Bld)Ordered By: Amarilis Jameson on 88-41-2486Hwjkehnfzm [Mass/Vol]1.59 mg/dL0.64-1.27Berger HospitalEosinophils Auto (Bld) [#/Vol] Ordered By: Amarilis Jameson on 94-43-4867Owqtfohynyg (Bld) [#/Vol]0.3 10*3/uL 0.0-0.45Berger HospitalEosinophils/100 WBC Auto (Bld)Ordered By: Amarilis Jameson on 57-08-2223Qwqaavjlggi/100 WBC (Bld)4.5 %.Berger HospitalErythrocyte distribution width Auto (RBC) [Ratio]Ordered By: Amarilis Jameson on 24-89-7202Xaqiryhrsnk distribution width (RBC) [Ratio]18.0 %12.0-14.8 Berger HospitalEstimated glomerular filtration rate (GFR) non- AmericanOrdered By: Amarilis Jameson on 79-15-2716FEL/1.73 sq M.predicted among non-blacks MDRD (S/P/Bld) [Vol rate/Area]44 mL/MinBerger HospitalGlucose Glucometer (BldC) [Mass/Vol]Ordered By: Amarilis Jameson on 11-37-1947Haxrufb [Mass/Vol]83 mg/dLBerger HospitalComment on above:Random Glucose Reference Range is dependent on time and content of last meal. Glucose of more than 200 mg/dL in a nonstressed, ambulatory subject supports the diagnosis of Diabetes Mellitus.Hematocrit Auto (Bld) [Volume fraction]Ordered By: Amarilis Jameson on 50-54-9988Lixplvdewt (Bld) [Volume fraction] 37.1 %38.8-50.0Berger HospitalHemoglobin [Mass/volume] in BloodOrdered By: Amarilis Jameson on 18-23-6931Rbvgilovyp (Bld) [Mass/Vol]11.5 g/dL 13.0-17.0Berger HospitalKetones Auto test strip (U) [Mass/Vol] Ordered By: Amarilis Jameson on 38-89-2285Xzajvfj (U) [Mass/Vol]NegativeNegative Berger HospitalLaboratory - Chemistry and Chemistry - challengeOrdered By: Amarilis Jameson on 63-58-6587Bdqucmhyq [Mass/Vol]2.1 mg/dL 1.6-2.6FOhioHealth Berger HospitalNatriuretic peptide B (Bld) [Mass/Vol] 20.0 pg/mL5-100Berger HospitalLaboratory - Hematology and Cell countsOrdered By: Amarilis Jameson on 11-20-6117Hlxohnflh RBC/100 WBC (Bld) [Ratio] 0.0 %0-0.5FOhioHealth Berger HospitalLaboratory - Microbiology and Antimicrobial susceptibilityOrdered By: Amarilis Jameson on 23-98-4634CTVZ-CoV-2 (COVID-19) RNA LATOYA+probe Ql (Unsp spec)N/AFOhioHealth Berger Hospital Laboratory - UrinalysisOrdered By: Amarilis Jameson on 50-59-3631Xydvwei casts LM Ql (Urine sed)0-8 [LPF]0-8Berger HospitalLeukocytes [#/volume] in Blood by Automated countOrdered By: Amarilis Jameson on 11-95-6491KVJ (Bld) [#/Vol] 7.5 10*3/uL4.5-11.0Berger HospitalLymphocytes Auto (Bld) [#/Vol]Ordered By: Amarilis Jameson on 02-97-1148Lgocyeozhbn (Bld) [#/Vol]1.3 10*3/uL 1.00-4.8Berger HospitalLymphocytes/100 WBC Auto (Bld)Ordered By: Amarilis Jameson on 97-81-2907Ojzqfhesswu/100 WBC (Bld)17.2 %.[facility] HospitalH Auto (RBC) [Entitic mass]Ordered By: Amarilis Jameson on 05-03-2022 MCH (RBC) [Entitic mass]23.8 pg27.5-35.2FOhioHealth Berger HospitalMCHC Auto (RBC) [Mass/Vol]Ordered By: Amarilis Jameson on 83-15-0277TMOV (RBC) [Mass/Vol] 30.9 g/dL32.5-35.6FOhioHealth Berger HospitalMCV Auto (RBC) [Entitic vol] Ordered By: Amarilis Jameson on 48-40-3124YIQ (RBC) [Entitic vol]77.2 fL83.5-101 Berger HospitalMonocytes Auto (Bld) [#/Vol]Ordered By: Amarilis Jameson on 05-60-5231Cnoahndoc (Bld) [#/Vol]0.7 10*3/uL0.0-0.8Berger HospitalMonocytes/100 WBC Auto (Bld)Ordered By: Amarilis Jameson on 05-03-2022 Monocytes/100 WBC (Bld)9.5 %.Berger HospitalNeutrophils Auto (Bld) [#/Vol]Ordered By: Amarilis Jameson on 22-88-1080Rupksvwmuxa (Bld) [#/Vol]5.0 10*3/uL1.8-7.7FOhioHealth Berger HospitalNeutrophils/100 WBC Auto (Bld) Ordered By: Amarilis Jameson on 93-46-6121Femrugezahv/100 WBC (Bld)67.7 %.Berger HospitalNitrite Test strip Ql (U)Ordered By: Amarilis Jameson on 85-78-9294Hbyfjpc Ql (U)NegativeNegativeBerger HospitalNo Panel InformationOrdered By: Amarilis Jameson on 19-08-6048TNEY Antigen (LFIA) Berger HospitalPOC Estimated GFR Esewavvf73FtlnymlnrBerger HospitalComment on above:GFR estimated reference range: According to KDOQI guidelines, <60 ml/min/1.73m2 is sufficient todiagnose a patient with chronic kidney disease.POC Estimated GFR Non- Vfgo30KvsecumogBerger HospitalEstimated GFR ()54 mL/MinBerger HospitalComment on above:GFR estimated reference range: According to KDOQI guidelines, <60 ml/min/1.73m2 is sufficient todiagnose a patient with chronic kidney disease.Pharmacy Creatinine Clearance (Chem66.36OhioHealth Berger HospitalARS Antigen (LFIA)Berger HospitalPlatelet mean volume Auto (Bld) [Entitic vol]Ordered By: Amarilis Jameson on 12-89-9658Nqiohscw mean volume (Bld) [Entitic vol]8.8 fL6.6-10.1FOhioHealth Berger Hospital Platelets Auto (Bld) [#/Vol]Ordered By: Amarilis Jameson on 16-36-2345Cuwcbptby (Bld) [#/Vol]213 10*3/zB722-591UdqqwafzaBerger HospitalProtein Auto test strip (U) [Mass/Vol]Ordered By: Amarilis Jameson on 39-12-2989Ovueblm (U) [Mass/Vol] NegativeNegativeBerger HospitalRBC Auto (Bld) [#/Vol]Ordered By: Amarilis Jameson on 36-27-0791JFV (Bld) [#/Vol]4.81 10*6/uL3.90-5.60OhioHealth Berger Hospitalerum or plasma anion gap determinationOrdered By: Amarilis Jameson on 06-11-4873Qhboo gap [Moles/Vol]11.7 mmol/L6.0-15.0OhioHealth Berger Hospitalerum or plasma calcium measurement (mass/volume)Ordered By: Amarilis Jameson on 37-61-2888Rqtbzrz [Mass/Vol]8.2 mg/dL8.2-10.2FAvita Health System Bucyrus Hospitalerum or plasma chloride measurement (moles/volume)Ordered By: Amarilis Jameson on 24-01-3910Adcffexv [Moles/Vol]103 mmol/U72-076VwxrbdkxsOhioHealth Berger Hospitalerum or plasma glucose measurement (mass/volume)Ordered By: Amarilis Jameson on 42-97-7528Iedsern [Mass/Vol]84 mg/wI34-465NucvmushsBerger HospitalComment on above:ADA recommended reference rangeRandom Glucose Reference Range is dependent on time and content of last meal. Glucose of more than 200 mg/dL in a nonstressed, ambulatory subject supports the diagnosisof Diabetes Mellitus.Serum or plasma potassium measurement (moles/volume)Ordered By: Amarilis Jameson on 20-62-9858Hknobtizy [Moles/Vol]4.3 mmol/L3.5-5.1FAvita Health System Bucyrus Hospitalerum or plasma sodium measurement (moles/volume)Ordered By: Amarilis Jameson on 53-24-3593Qljrxa [Moles/Vol]136 mmol/H464-679NtihuksgkOhioHealth Berger Hospitalerum or plasma total carbon dioxide measurement (moles/volume) Ordered By: Amarilis Jameson on 76-84-8806MY8 [Moles/Vol]25.6 mmol/L22.0-30.0 [facility] Berger Hospitalerum or plasma urea nitrogen measurement (mass/volume)Ordered By: Amarilis Jameson on 07-93-1766Gwni nitrogen [Mass/Vol]20 mg/dL9-23OhioHealth Berger Hospitalpecific gravity Auto test strip (U) [Rel density]Ordered By: Amarilis Jameson on 62-40-3656Pnmphpqe gravity (U) [Rel density]1.0151.001-1.030OhioHealth Berger Hospitalquamous epithelial cells detection in urine sediment by light microscopyOrdered By: Amarilis Jameson on 84-21-5722Abafdfliai cells.squamous LM Ql (Urine sed)1-2 [HPF]0-2FOhioHealth Berger HospitalTroponin I.cardiac [Mass/volume] in Serum or Plasma by High sensitivity methodOrdered By: Amarilis Jameson on 15-20-3445Jbxpnozh I.cardiac High sensitivity method [Mass/Vol]4 pg/mL0-20[facility] Urine bacteria detection by automated methodOrdered By: Amarilis Jameson on 45-16-4596Ajtevaqi Auto Ql (U)None seenNone SeenBerger HospitalUrine clarity by refractometry automatedOrdered By: Amarilis Jameson on 74-75-0404Tuwvods Refractometry automated (U)ClearClearFOhioHealth Berger HospitalUrine glucose measurement by automated test strip (mass/volume) Ordered By: Amarilis Jameson on 61-38-4633Eqeshkf Auto test strip (U) [Mass/Vol] Normal mg/dLNormDelaware County HospitalUrine hemoglobin detection by automated test stripOrdered By: Amarilis Jameson on 75-76-8261Kxjhivpwsy Auto test strip Ql (U)NegativeNegativeBerger HospitalUrine leukocyte esterase detection by automated test stripOrdered By: Amarilis Jameson on 05-03-2022 Leukocyte esterase Auto test strip Ql (U)1+NegativeBerger HospitalUrobilinogen Auto test strip (U) [Mass/Vol]Ordered By: Amarilis Jameson on 58-47-9558Wpkhuthoeybj (U) [Mass/Vol]Normal mg/dLNormDelaware County HospitalpH Auto test strip (U)Ordered By: Amarilis Jameson on 07-01-9168aV (U) 6.0 [pH]5.0-9.0Berger HospitalCNPNon 73-18-9441MFFPCjpzoznyy (ESA) MARY JIMENEZ ([id number]) 1960 M Date Time Provider Department 04/01/22 CHRISTINE GUTIERREZ During your visit today, we recorded the following information about you: Christine Gutierrez PA-C 04/01/2022 12:35 PM Signed I called Alfredo on 04/01/2022 at 12:32 PM. Left a voicemail informing him that I have discussed overall plan of care going forward with Dr. Steele. Will send V Wave message detailing plan. Advised to respond to message or call back with questions. Allergies As of Date: 04/01/2022 Noted Allergy Reaction PENICILLINS 06/07/2014 10 - Anaphylaxis LATEX 09/04/2016 2 - Rash Date Reviewed: 02/27/2022 Reviewed by: Rhonda Hay MA - Fully Assessed Reason for Visit: Wound Care [485] Primary Visit Diagnosis:Spinal stenosis of lumbar region with neurogenic claudication [M48.062] Order(s):SPINE INTERVENTION PROCEDURE [4232219] Order #: [id number] Prescriptions as of 04/01/2022 - QUEtiapine (SEROQUEL) [...] 01/04/2022 Encounter Status:Closed by CHRISTINE GUTIERREZ on 04/01/22[facility] Basophils Auto (Bld) [#/Vol]Ordered By: Jose Valdovinos on 58-61-2224Hqxysxpbj (Bld) [#/Vol]0.1 10*3/uL0.0-0.2FOhioHealth Berger HospitalBasophils/100 WBC Auto (Bld)Ordered By: Jose Valdovinos on 25-61-7400Qgfqsjpql/100 WBC (Bld)0.9 %. Berger HospitalBlood hemoglobin measurement (mass/volume) Ordered By: Jose Valdovinos on 90-10-0356Eveqotwuov (Bld) [Mass/Vol]10.7 g/dL 13.0-17.0Berger HospitalBlood leukocytes automated count (number/volume)Ordered By: Jose Valdovinos on 71-52-0506WJR (Bld) [#/Vol]5.7 10*3/uL 4.5-11.0Berger HospitalBody fluid albumin measurement (mass/volume)Ordered By: Jose Valdovinos on 64-80-9462Jrfblyn (Body fld) [Mass/Vol] 3.9 g/dL3.2-5.5FOhioHealth Berger HospitalCholesterol [Mass/volume] in Serum or PlasmaOrdered By: Jose Valdovinos on 46-24-6286Gqfmlrztaxi [Mass/Vol]194 mg/lC537-959HyzovxbecBerger HospitalComment on above:Chol less than 200 mg/dl low risk Chol 201-239 mg/dl borderline risk Chol 240 mg/dl and greater high riskChol less than 200 mg/dl low riskChol 201- 239 mg/dl borderline riskChol 240 mg/dl and greater high riskCholesterol in LDL Calc [Mass/Vol]Ordered By: Jose Valdovinos on 71-36-0366Ewaqlzyvzzg in LDL [Mass/Vol]115 mg/dL0-100Berger HospitalComment on above:LDL ATP III CLASSIFICATION LDL less than 100 mg/dL Optimal LDL 100-129 mg/dL Near or above optimal LDL 130-159 mg/dL Borderline high LDL 160-189 mg/dL High LDL greater than 189 mg/dL Very highLDL ATP III CLASSIFICATIONLDL less than 100 mg/dL OptimalLDL 100-129 mg/dL Near or above bqpulksMMT233-659 mg/dL Borderline highLDL 160-189 mg/dL HighLDL greater than 189 mg/dL Very highCholesterol in VLDL Calc [Mass/Vol]Ordered By: Jose Valdovinos on 08-14-6180Aeiggublrns in VLDL [Mass/Vol]41 mg/dLBerger HospitalCreatinine and Glomerular filtration rate.predicted panel (S/P/Bld)Ordered By: Jose Valdovinos on 02-25-2022 Creatinine [Mass/Vol]1.33 mg/dL0.64-1.27Berger HospitalDirect bilirubin measurementOrdered By: Jose Valdovinos on 64-27-1425Ttglortuu.direct [Mass/Vol]mg/dL0.0-0.4FOhioHealth Berger HospitalEosinophils Auto (Bld) [#/Vol]Ordered By: Jose Valdovinos on 11-57-4955Woepqcqqexr (Bld) [#/Vol]0.3 10*3/uL 0.0-0.45Berger HospitalEosinophils/100 WBC Auto (Bld)Ordered By: Jose Valdovinos on 71-44-1865Wectdjtkuef/100 WBC (Bld)5.3 %.Berger HospitalErythrocyte distribution width Auto (RBC) [Ratio]Ordered By: Jose Valdovinos on 94-52-2599Ymavmayysrz distribution width (RBC) [Ratio]16.1 %12.0-14.8 Berger HospitalEstimated glomerular filtration rate (GFR) non- AmericanOrdered By: Jose Valdovinos on 77-22-9415MNK/1.73 sq M.predicted among non-blacks MDRD (S/P/Bld) [Vol rate/Area]54 mL/MinBerger HospitalGlobulin Calc (S) [Mass/Vol]Ordered By: Jose Valdovinos on 02-25-2022 Globulin (S) [Mass/Vol]2.5 g/dLBerger HospitalGlucose mean value [Mass/volume] in Blood Estimated from glycated hemoglobinOrdered By: Jose Valdovinos on 99-72-0590Werubjz glucose Estimated from glycated hemoglobin (Bld) [Mass/Vol]120 mg/dLBerger HospitalHematocrit Auto (Bld) [Volume fraction]Ordered By: Jose Valdovinos on 57-15-0999Vpcxkymscm (Bld) [Volume fraction]33.6 %38.8-50.0Berger HospitalHemoglobin A1c percentageOrdered By: Jose Valdovinos on 00-30-0284DsK7c (Bld) [Mass fraction]5.8 % 4.3-5.6FOhioHealth Berger HospitalComment on above:Increased risk for diabetes: 5.7 - 6.4 diabetes: >6.4 glycemic control for adults with diabetes: <7.0Increased risk for diabetes: 5.7 - 6.4diabetes: >6.4glycemic control for adults with diabetes: <7.0Laboratory - Hematology and Cell countsOrdered By: Jose Valdovinos on 11-70-6642Aezfheeon RBC/100 WBC (Bld) [Ratio]0.1 %0-0.5FOhioHealth Berger HospitalLymphocytes Auto (Bld) [#/Vol]Ordered By: Jose Valdovinos on 07-69-7515Kxutxoafivs (Bld) [#/Vol] 0.9 10*3/uL1.00-4.8Berger HospitalLymphocytes/100 WBC Auto (Bld)Ordered By: Jose Valdovinos on 19-78-0888Isjkwjyxixl/100 WBC (Bld)15.6 %. Berger HospitalMCH Auto (RBC) [Entitic mass]Ordered By: Jose Valdovinos on 13-22-6595ULI (RBC) [Entitic mass]25.4 pg27.5-35.2FOhioHealth Berger HospitalMCHC Auto (RBC) [Mass/Vol]Ordered By: Jose Valdovinos on 02-25-2022 MCHC (RBC) [Mass/Vol]31.9 g/dL32.5-35.6FOhioHealth Berger HospitalMCV Auto (RBC) [Entitic vol]Ordered By: Jose Valdovinos on 02-53-3311SAS (RBC) [Entitic vol] 79.6 fL83.5-101Berger HospitalMonocytes Auto (Bld) [#/Vol] Ordered By: Jose Valdovinos on 88-69-4213Ftqqcliec (Bld) [#/Vol]0.5 10*3/uL0.0-0.8 Berger HospitalMonocytes/100 WBC Auto (Bld)Ordered By: Jose Valdovinos on 92-06-3695Mapdknubk/100 WBC (Bld)8.9 %.Berger HospitalNeutrophils Auto (Bld) [#/Vol]Ordered By: Jose Valdovinos on 02-25-2022 Neutrophils (Bld) [#/Vol]3.9 10*3/uL1.8-7.7FOhioHealth Berger Hospital Neutrophils/100 WBC Auto (Bld)Ordered By: Jose Valdovinos on 02-25-2022 Neutrophils/100 WBC (Bld)69.3 %.Berger HospitalNo Panel InformationOrdered By: Rosey Dubose on 65-44-3167Etiimdvp Specific Antigen Screen0.160 ng/mL0.000-4.000Berger HospitalNo Panel InformationOrdered By: Jose Valdovinos on 99-33-5993Cjsmxtlua GFR () > 60 mL/MinBerger HospitalComment on above:GFR estimated reference range: According to KDOQI guidelines, <60 ml/min/1.73m2 is sufficient todiagnose a patient with chronic kidney disease.Pharmacy Creatinine Clearance (ChemN/[facility] CenterPlatelet mean volume Auto (Bld) [Entitic vol]Ordered By: Jose Valdovinos on 79-60-8775Gmabpspn mean volume (Bld) [Entitic vol]9.3 fL6.6-10.1FOhioHealth Berger HospitalPlatelets Auto (Bld) [#/Vol]Ordered By: Jose Valdovinos on 06-64-3810Exwchuewx (Bld) [#/Vol]241 10*3/uL 150-450Berger HospitalProtein [Mass/volume] in Serum or Plasma Ordered By: Jose Valdovinos on 08-86-6911Jdqotjg [Mass/Vol]6.4 g/dL6.1-7.9Berger HospitalRBC Auto (Bld) [#/Vol]Ordered By: Jose Valdovinos on 63-03-7961ZOZ (Bld) [#/Vol]4.23 10*6/uL3.90-5.60OhioHealth Berger Hospitalerum or plasma alanine aminotransferase measurement without P-5'-P (enzymatic activiOrdered By: Jose Valdovinos on 52-01-9093FCD No additional P-5'-P [Catalytic activity/Vol]18 U/T07-51QevggosciOhioHealth Berger Hospitalerum or plasma albumin/globulin mass ratioOrdered By: Jose Valdovinos on 02-25-2022 Albumin/Globulin [Mass ratio]1.6 {ratio}[facility] Berger Hospitalerum or plasma alkaline phosphatase measurement (enzymatic activity/volume)Ordered By: Jose Valdovinos on 97-23-9857MOQ [Catalytic activity/Vol]79 U/G32-36DbemmukgxOhioHealth Berger Hospitalerum or plasma anion gap determinationOrdered By: Jose Valdovinos on 79-14-6968Cebji gap [Moles/Vol]13.6 mmol/L6.0-15.0[facility] Berger Hospitalerum or plasma aspartate aminotransferase measurement (enzymatic activity/volume)Ordered By: Jose Valdovinos on 07-77-4936PHU [Catalytic activity/Vol]18 U/H19-96JtjqowuygOhioHealth Berger Hospitalerum or plasma calcium measurement (mass/volume)Ordered By: Jose Valdovinos on 24-41-4091Wdvrbpu [Mass/Vol] 9.1 mg/dL8.2-10.2FAvita Health System Bucyrus Hospitalerum or plasma chloride measurement (moles/volume)Ordered By: Jose Valdovinos on 48-66-0169Dhlnfbno [Moles/Vol]100 mmol/L79-620SpoqlymtjOhioHealth Berger Hospitalerum or plasma glucose measurement (mass/volume)Ordered By: Jose Valdovinos on 52-36-8923Cdfnkth [Mass/Vol]99 mg/bZ66-392IjptuvtfrBerger HospitalComment on above:ADA recommended reference range Random Glucose Reference Range is dependent on time and content of last meal. Glucose of more than 200 mg/dL in a nonstressed, ambulatory subject supports the diagnosis of Diabetes Mellitus.ADA recommended reference rangeRandom Glucose Reference Range is dependent on time and content of last meal. Glucose of more than 200 mg/dL in a nonstressed, ambulatory subject supports the diagnosisof Diabetes Mellitus.Serum or plasma high density lipoprotein (HDL) cholesterol measurementOrdered By: Jose Valdovinos on 93-69-6318Emqpxqawtcr in HDL [Mass/Vol]38 mg/iJ65-25MpksphxmrBerger HospitalComment on above:HDL CHOL ATP-III CLASSIFICATION Cardiovascular Risk HDL > or equal to 60 mg/dL LOW HDL < 40 mg/dL HIGHHDL CHOL ATP-III CLASSIFICATION Cardiovascular RiskHDL > or equal to 60 mg/dL LOWHDL < 40 mg/dL HIGHSerum or plasma non-glucuronidated bilirubin measurement (mass/volume)Ordered By: Jose Valdovinos on 02-25-2022 Bilirubin.indirect [Mass/Vol]TNPBerger HospitalComment on above:Test not performedSerum or plasma potassium measurement (moles/volume) Ordered By: Jose Valdovinos on 27-40-3480Afguovpvc [Moles/Vol]4.4 mmol/L3.5-5.1 [facility] Hospitalerum or plasma sodium measurement (moles/volume)Ordered By: Jose Valdovinos on 78-05-8402Enfgzo [Moles/Vol]136 mmol/L 136-146OhioHealth Berger Hospitalerum or plasma thyroxine (T4) measurement (mass/volume)Ordered By: Jose Valdovinos on 88-46-7696S2 [Mass/Vol]6.61 ug/dL5.39-11.82[facility] Hospitalerum or plasma total bilirubin measurement (mass/volume)Ordered By: Jose Valdovinos on 62-65-1689Wqhdiscgk [Mass/Vol]0.6 mg/dL0.3-1.2FAvita Health System Bucyrus Hospitalerum or plasma total carbon dioxide measurement (moles/volume)Ordered By: Jose Valdovinos on 02-25-2022 CO2 [Moles/Vol]26.8 mmol/L22.0-30.0[facility] Hospitalerum or plasma total cholesterol/high density lipoprotein (HDL) cholesterol mass rat Ordered By: Jose Valdovinos on 50-89-9612Cnhbnkajpkm.total/Cholesterol in HDL [Mass ratio]5.1 {ratio}<5.0[facility] Berger Hospitalerum or plasma urea nitrogen measurement (mass/volume)Ordered By: Jose Valdovinos on 61-16-7024Bogn nitrogen [Mass/Vol]19 mg/dL9-23Berger HospitalTSH DL <= 0.005 mIU/L QnOrdered By: Jose Valdovinos on 41-39-9284TQR Qn2.55 m[IU]/L0.45-5.33 Berger HospitalTestosterone [Mass/volume] in Serum or Plasma Ordered By: Rosey Dubose on 25-48-9311Srrzewrqpgov [Mass/Vol]12.54 ng/mL 1.75-7.81Berger HospitalTriglyceride [Mass/volume] in Serum or PlasmaOrdered By: Jose Valdovinos on 09-99-3681Hhsgxoujelej [Mass/Vol]207 mg/dL 35-149Berger HospitalComment on above:TRIG ATP III CLASSIFICATION TRIG less than 150 mg/dL Normal TRIG 150-199 mg/dL Borderline high TRIG 200-500 mg/dL High TRIG greater than 500 mg/dL Very high Standard traceable to the Center for Disease Conrtrol and Prevention (CDC) test method.TRIG ATP III CLASSIFICATIONTRIG less than 150 mg/dL NormalTRIG 150-199 mg/dL Borderline highTRIG 200-500 mg/dL High TRIG greater than 500 mg/dL Very highStandard traceable to the Center for Disease Conrtrol and Prevention (CDC) test method.Creatinine and Glomerular filtration rate.predicted panel (S/P/Bld) Ordered By: NON STAFF on 10-48-4519Ptqjxozypz [Mass/Vol]1.63 mg/dL0.64-1.27 Berger HospitalEstimated glomerular filtration rate (GFR) non- AmericanOrdered By: NON STAFF on 33-94-1351QXE/1.73 sq M.predicted among non-blacks MDRD (S/P/Bld) [Vol rate/Area]43 mL/MinBerger HospitalNo Panel InformationOrdered By: NON STAFF on 57-55-2122Etcpunjuz GFR ()52 mL/MinBerger HospitalComment on above:GFR estimated reference range: According to KDOQI guidelines, <60 ml/min/1.73m2 is sufficient todiagnose a patient with chronic kidney disease.Pharmacy Creatinine Clearance (ChemN/[facility] Centererum or plasma calcium measurement (mass/volume)Ordered By: NON STAFF on 14-40-9641Rxqnkum [Mass/Vol] 8.7 mg/dL8.2-10.2FAvita Health System Bucyrus Hospitalerum or plasma chloride measurement (moles/volume)Ordered By: NON STAFF on 76-74-5883Ptlkeufp [Moles/Vol]100 mmol/N13-710OoiqkwzyoOhioHealth Berger Hospitalerum or plasma glucose measurement (mass/volume)Ordered By: NON STAFF on 57-72-1936Lbilqbk [Mass/Vol]92 mg/kG96-355KqoledkcmBerger HospitalComment on above:ADA recommended reference range Random Glucose Reference Range is dependent on time and content of last meal. Glucose of more than 200 mg/dL in a nonstressed, ambulatory subject supports the diagnosis of Diabetes Mellitus.Serum or plasma potassium measurement (moles/volume)Ordered By: NON STAFF on 01-63-7921Jrrvtgorg [Moles/Vol]4.6 mmol/L 3.5-5.1FAvita Health System Bucyrus Hospitalerum or plasma sodium measurement (moles/volume)Ordered By: NON STAFF on 67-64-5284Bzexfy [Moles/Vol]135 mmol/L 136-146OhioHealth Berger Hospitalerum or plasma total carbon dioxide measurement (moles/volume)Ordered By: NON STAFF on 68-00-9154MU8 [Moles/Vol]25.7 mmol/L22.0-30.0[facility] Hospitalerum or plasma urea nitrogen measurement (mass/volume)Ordered By: NON STAFF on 87-26-6637Ntot nitrogen [Mass/Vol]22 mg/dL9-23Berger HospitalC-REACTIVE PROTEIN (CRP) on 25-49-6417KUI [Mass/Vol]mg/L<0.9 mg/dLSelect Medical Specialty [facility] W Auto Differential panel (Bld)on 17-44-7428Ivr Immature Gran<0.03<0.10 k/uLBarnesville Hospital Basophils (Bld) [#/Vol]0.03 10*3/uL<0.11 k/uLBarnesville HospitalBasophils/100 WBC (Bld)0.5 %[facility] HospitalDifferential cell count method Nom (Bld)AutoCleveland ClinicEosinophils (Bld) [#/Vol]0.30 10*3/uL<0.46 k/uLBarnesville Hospital Eosinophils/100 WBC (Bld)5.4 %[facility] HospitalErythrocyte distribution width (RBC) [Ratio]14.3 %11.5 - 15.0 %[facility] HospitalHematocrit (Bld) [Volume fraction]34.0 %Low39.0 - 51.0 %[facility] HospitalHemoglobin (Bld) [Mass/Vol]10.5 g/dLLow13.0 - 17.0 g/dLBarnesville HospitalImmature Gran %0.2 %[facility] Lymphocytes (Bld) [#/Vol]1.08 10*3/uL1.00 - 4.00 k/uLBarnesville Hospital Lymphocytes/100 WBC (Bld)19.6 %[facility] HospitalH (RBC) [Entitic mass]25.7 pg Low26.0 - 34.0 pgCleveland Appleton Municipal HospitalMCHC (RBC) [Mass/Vol]30.9 g/dL30.5 - 36.0 g/dL [facility] HospitalV (RBC) [Entitic vol]83.1 fL80.0 - 100.0 fLCUniversity Hospitals [facility] Monocytes (Bld) [#/Vol]0.61 10*3/uL<0.87 k/uLBarnesville HospitalMonocytes/100 WBC (Bld)11.1 %[facility] HospitalNeutrophils (Bld) [#/Vol]3.49 10*3/uL1.45 - 7.50 k/uL [facility] HospitalNeutrophils/100 WBC (Bld)63.2 %[facility] HospitalNucleated RBC (Bld) [#/Vol]10*3/uL<0.01 k/uLBarnesville HospitalNucleated RBC/100 WBC (Bld) [Ratio]0.0 /100 WBCBarnesville HospitalPlatelet mean volume (Bld) [Entitic vol]11.5 fL9.0 - 12.7 fLCmagruder hospital ClinicPlatelets (Bld) [#/Vol]236 10*3/uL150 - 400 k/uL [facility] HospitalRBC (Bld) [#/Vol]4.09 10*6/uLLow4.20 - 6.00 m/uLBarnesville Hospital WBC (Bld) [#/Vol]5.52 10*3/uL3.70 - 11.00 k/uLBarnesville HospitalBasic metabolic 2000 panelon [id number] gap [Moles/Vol]9 mmol/LNormal9-18[facility] Comment on above:Order Comment: Specimen Type: BLOOD SPECIMENOrdering Facility: [facility] Address:[address] [place] [address] Performed By: #### 49629-0 ####TAOISM LABORATORYCLIA [id number] [place] [address] [place] OF AMERICACalcium [Mass/Vol]8.8 mg/dLNormal8.5-10.2[facility] HospitalComment on above:Order Comment: Specimen Type: BLOOD SPECIMENOrdering Facility: [facility] Address:[address] [place], [place] [address]Performed By: #### 92388-5 ####TAOISM LABORATORYCLIA [id number] [place] [id number] [place] OF AMERICAChloride [Moles/Vol]105 mmol/IMtnwza09-252Afrmfesv HospitalComment on above:Order Comment: Specimen Type: BLOOD SPECIMENOrdering Facility: [facility] Address:[address] [place], [place] [address]Performed By: #### 72560-8 ####TAOISM LABORATORYCLIA [id number] [place] [address] [place] OF AMERICACO2 [Moles/Vol]27 mmol/MPkbcuu62-99[facility] Comment on above:Order Comment: Specimen Type: BLOOD SPECIMENOrdering Facility: [facility] Address:[address] [place] [address] Performed By: #### 49726-8 ####TAOISM LABORATORYCLIA [id number] [address] STATES OF AMERICACreatinine [Mass/Vol]1.19 mg/dLNormal0.73-1.22[facility] HospitalComment on above:Order Comment: Specimen Type: BLOOD SPECIMENOrdering Facility: [facility] Address:[address] [place], [place] [address]Performed By: #### 06932-5 ####TAOISM LABORATORYCLIA [id number] [place] [address] [place] OF AMERICAESTIMATED GLOMERULAR FILTRATION RATE69 mL/min/1.73m???Normal>=60LutCleveland Clinic Children's Hospital for RehabilitationComment on above: Order Comment: Specimen Type: BLOOD SPECIMENOrdering Facility: [facility] Address:[address] [place], [place] [address]Result Comment: Estimated Glomerular Filtration Rate (eGFR) is calculated using the 2020 CKD-EPI creatinine equation. This equation utilizes serum creatinine, sex, and age as parameters. The creatinine assay has traceable calibration to isotope dilution- mass spectrometry. Refer to KDIGO guidelines for clinical interpretation. In patients with unstable renal function, e.g. those with acute kidney injury, the eGFR may not accurately reflect actual GFR.Performed By: #### 58102-4 ####TAOISM LABORATORYCLIA [id number] [address] [address] [place] OF AMERICAGlucose [Mass/Vol]111 mg/jPBxcr37-18 [facility] HospitalComment on above:Order Comment: Specimen Type: BLOOD SPECIMENOrdering Facility: [facility] Address:[address] [place], [place] [address]Result Comment: The [place] Diabetes Association (ADA) provides guidance for cutoff [...] Standards of Medical Care in Diabetes 2016, [place] [employer] Association. Diabetes Care. 2016.39(Suppl 1).Performed By: #### 69729-0 ####TAOISM LABORATORYCLIA [id number] [place] [address] [place] OF AMERICAPotassium [Moles/Vol]3.9 mmol/L Normal3.7-5.1LKindred HealthcareComment on above:Order Comment: Specimen Type: BLOOD SPECIMENOrdering Facility: [facility] Address:[address] [place], [place] [address]Performed By: #### 29197-1 ####TAOISM LABORATORYCLIA [id number] [place] [address] [place] OF AMERICASodium [Moles/Vol]141 mmol/EJnjktz955-909Bwurvsxy HospitalComment on above:Order Comment: Specimen Type: BLOOD SPECIMENOrdering Facility: [facility] Address:[address] [place], [place] [address]Performed By: #### 51394-2 ####TAOISM LABORATORYCLIA [id number] [place] [address] [place] OF AMERICAUrea nitrogen [Mass/Vol]9 mg/dLNormal9-24Latter-Day HospitalComment on above:Order Comment: Specimen Type: BLOOD SPECIMENOrdering Facility: [facility] Address:[facility] [place] [address]Jwfkjnbrq By: #### 10064-2 ####TAOISM LABORATORYCLIA [id number] [address] [place] [address] [address]CASE MANAGEMon 80-37-8437HXDP MANAGEMHNO ID: [id number] Author: Gracia Lr RN Service: ? Author Type: Registered Nurse Type: Care Mgt Progress Note Filed: 01/06/2022 4:32 PM Note Text: CARE MANAGEMENT DISCHARGE NOTE SERVICE DATE: 01/06/2022 SERVICE TIME: 4:31 pm LOS: 6 days Admission Date: 12/31/2021 DISCHARGE ARRANGEMENT (list agency and phone number) Discharge Arrangement: Home with Home Health (for SN / PT / OT) Provider Name: [facility] HANDOFF COMMUNICATION: Handoff to: (see summary of care) TRANSPORTATION ARRANGEMENTS: Transportation Arrangements: Car (with a friend) ADDITIONAL CONTACT RESOURCES: Discharge Information Row Name Admission (Current) from 12/31/[address] [facility] Health Care Agency [facility] - Home Health Needs Prior to Discharge: Ready for Discharge SIGNATURE: Gracia Lr RN PATIENT NAME: Mary dIa Barbara DATE: January 06, 2022 TIME: 4:31 PM PAGER/CONTACT #: [phone] HospitalCASE MANAGEM HNO ID: [id number] Author: Helena Triplett Service: ? Author Type: Resource Center Respiratory Therapy Manager Type: Care Mgt Progress Note Filed: 01/06/2022 10:47 AM Note Text: CARE MANAGEMENT PROGRESS NOTE SERVICE DATE: 01/06/2022 SERVICE TIME: 10:30AM LOS: 6 days IMM Follow Up Copy Given: Yes Copy given to:: Patient Method: In Person Alfredo is aware of IMM right SIGNATURE: Helena Triplett PATIENT NAME: Mary Prieto Barbara DATE: January 06, 2022 TIME: 10:47 AM PAGER/CONTACT #: [phone] panel Auto (Bld)on 14-13-8222Tvdeznirbpy distribution width (RBC) [Ratio]15.9 %High 11.5-15.0[facility] HospitalComment on above:Order Comment: Specimen Type: BLOOD SPECIMENOrdering Facility: [facility] Address:[address] [place], [place] [address]Performed By: #### 73617-3 ####TAOISM LABORATORYCLIA [id number] [address]ETHematocrit (Bld) [Volume fraction]25.5 %Low39.0-51.0[facility] Hospital Comment on above:Order Comment: Specimen Type: BLOOD SPECIMENOrdering Facility: [facility] Address:[address] [place] [address] Performed By: #### 12747-5 ####TAOISM LABORATORYCLIA [id number] [address] STREETHemoglobin (Bld) [Mass/Vol]8.1 g/dLLow13.0-17.0[facility] HospitalComment on above:Order Comment: Specimen Type: BLOOD SPECIMENOrdering Facility: [facility] Address:[address] [place], [place] [address]Performed By: #### 94210-2 ####TAOISM LABORATORYCLIA [id number] [place] [address] [facility] (RBC) [Entitic mass]27.4 odMorbai42.0-34.0[facility] HospitalComment on above:Order Comment: Specimen Type: BLOOD SPECIMENOrdering Facility: [facility] Address:[address] [place], [place] [address]Performed By: #### 42980-0 ####TAOISM LABORATORYCLIA [id number] [place] [id number] [place] OF AMERICAMCHC (RBC) [Mass/Vol]31.8 g/lJXpxffp65.5-36.0[facility] HospitalComment on above:Order Comment: Specimen Type: BLOOD SPECIMENOrdering Facility: [facility] Address:[address] [place], [place] [address]Performed By: #### 67724-6 ####TAOISM LABORATORYCLIA [id number] [address] [place], [place] [address]MCV (RBC) [Entitic vol]86.1 iMOicved81.0-100.0[facility] HospitalComment on above: Order Comment: Specimen Type: BLOOD SPECIMENOrdering Facility: [facility] Address:[address] [place], [place] [address]Performed By: #### 32685-0 ####TAOISM LABORATORYCLIA [id number] [address] AMERICANucleated RBC (Bld) [#/Vol] 10*3/uLNormal<0.01[facility] HospitalComment on above:Order Comment: Specimen Type: BLOOD SPECIMENOrdering Facility: [facility] Address:[address] [place], [place] [address]Performed By: #### 48881-5 ####TAOISM LABORATORYCLIA [id number] [place] [id number] [place] STATES OF AMERICAPlatelet mean volume (Bld) [Entitic vol]10.8 fLNormal 9.0-12.7[facility] HospitalComment on above:Order Comment: Specimen Type: BLOOD SPECIMENOrdering Facility: [facility] Address:[address] [place], [place] [address]Performed By: #### 84754-8 ####TAOISM LABORATORYCLIA [id number] [place] [id number] [place] OF AMERICAPlatelets (Bld) [#/Vol]277 10*3/fPJmivjk542-611Mivcnott [facility] Comment on above:Order Comment: Specimen Type: BLOOD SPECIMENOrdering Facility: [facility] Address:[address] [place] [address] Performed By: #### 21037-2 ####TAOISM LABORATORYCLIA [id number] [address]ETRBC (Bld) [#/Vol]2.96 10*6/uLLow4.20-6.00Latter-Day HospitalComment on above:Order Comment: Specimen Type: BLOOD SPECIMENOrdering Facility: [facility] Address:[address] [place], [place] [address]Performed By: #### 60746-9 ####TAOISM LABORATORYCLIA [id number] [address]W (Bld) [#/Vol]4.65 10*3/uLNormal 3.70-11.00L[facility]-Day HospitalComment on above:Order Comment: Specimen Type: BLOOD SPECIMENOrdering Facility: [facility] Address:[address] [place], [place] [address]Performed By: #### 75888-4 ####TAOISM LABORATORYCLIA [id number] [address]CNDS 70-40-7601VYXDHLL ID: [id number] Author: Taylor Tucker PA-C Service: Neurosurgery Author Type: Physician Respiratory Therapy Manager Type: Discharge Summary Filed: 01/08/2022 8:52 AM Note Text: Attestation signed by Loyda Steele MD at 01/13/2022 7:38 AM Loyda Steele MD DISCHARGE SUMMARY PATIENT NAME: Mary Jimenez Code [...] POD 1. Pain was initially controlled on OPERATIONAL METEOROLOGIST pump. Pain management consulted and adjusted PO [...] you become constipated, you may use any ayao-kgy-ydafkcb treatment such as Milk of Magnesia, Sennakot, [...] medication (see prescription) You should use an wmeb-fgb-xtisjyw stool softener (Docusate sodium) and/or a fiber [...] of Care Critical Issu (more content not included)...NormalLatter-Day HospitalTHERAPY NTon 52-42-1371VVSRQQV NTHNO ID: [id number] Author: Dionte Estrada, PT Service: Physical Therapy Author Type: Physical Therapist Type: Therapy (PT/OT/Speech/Resp) Filed: 01/06/2022 2:47 PM Note Text: Physical Therapy Treatment SERVICE DATE: 01/06/2022 SERVICE TIME: 1420 to 1434 ROOM: [place] [address] Recommended Discharge Disposition: Home PT Recommended Discharge [...] at Home Physical Assist at Home for: Cleaning;Laundry;Shopping;Transportation Supervision at Home due to: Decreased safety [...] Impairment;Balance Impaired Treatment Interventions: Education;Energy Conservation Training;Joint Mobility;Strengthening;Functional Mobility Training;Balance Training;Edema Management;Pain Management Modalities: Ice [...] shower Laundry: first floor Equipment Owned: Cane;Wheeled Walker;Handstitching Machine Collar Feller;Grab Bars-Shower;ADL Kit;Elevated Toilet Seat;Shower Chair;Elastic Shoe Laces;Hospital Bed (PEr pt he does not have elevated toilet seat, sock aid etc.) Prior Functional Level: Required Assistance Assistance Required With: Cleaning;Laundry;Transportation Prior Functional Level Comments: Patient vague and questionable historian. Has hospital bed but sleeping on sofa with his dog. Unclear using walker as per pt initially for 2 weeks he did not use walker. Per pt spends most of his time laying down. Microwaves meals. Online orders from [facility]. Per pt he puts on his socks [...] Independent . Sit to Supine Independent pt donyo'nadeem good log roll Scooting Independent Sit to [...] or more Learning/Educational Needs: Discharge Plan;Functional Activities/Mobility;Pain Management;Precautions;Rehabilitation Techniques and Procedures;Safety Goals for Plan of C (more content not included)...[facility] ID: [id number] Author: Dionte Estrada, PT Service: Physical Therapy Author Type: Physical Therapist Type: Therapy (PT/OT/Speech/Resp) Filed: 01/06/2022 2:36 PM Note Text: Physical Therapy Treatment SERVICE DATE: 01/06/2022 SERVICE TIME: 835 to 900 [id number] Recommended Discharge Disposition: Subacute/SNF Recommended Discharge Disposition [...] at Home Physical Assist at Home for: Cleaning;Laundry;Meals;Safety;Transportation;Shopping Supervision at Home due to: Decreased safety [...] Impairment;Balance Impaired Treatment Interventions: Education;Energy Conservation Training;Joint Mobility;Strengthening;Functional Mobility Training;Balance Training;Edema Management;Pain Management Modalities: Ice [...] shower Laundry: first floor Equipment Owned: Cane;Wheeled Walker;Handstitching Machine Collar Feller;Grab Bars-Shower;ADL Kit;Elevated Toilet Seat;Shower Chair;Elastic Shoe Laces;Hospital Bed (PEr pt he does not have elevated toilet seat, sock aid etc.) Prior Functional Level: Required Assistance Assistance Required With: Cleaning;Laundry;Transportation Prior Functional Level Comments: Patient vague and questionable historian. Has hospital bed but sleeping on sofa with his dog. Unclear using walker as per pt initially for 2 weeks he did not use walker. Per pt spends most of his time laying down. Microwaves meals. Online orders from [facility]. Per pt he puts on his socks [...] to maintain balance while turning head/trunk JH-HLM: 7: Walk 25 feet or more Learning/Educational Needs: Discharg (more content not included)...Normal [facility] metabolic 1999 panelon 35-75-3919Zeivc gap [Moles/Vol]9 mmol/LNormal9-18Lutheran HospitalComment on above:Order Comment: Specimen Type: BLOOD SPECIMENOrdering Facility: [facility] Address:[address] [place], [place] [address]Performed By: #### 51581-5 ####TAOISM LABORATORYCLIA [id number] [place] [id number] [place] OF AMERICACalcium [Mass/Vol]8.5 mg/dLNormal8.5-10.2[facility] HospitalComment on above:Order Comment: Specimen Type: BLOOD SPECIMENOrdering Facility: [facility] Address:[address] [place], [place] [address]Performed By: #### 63064-7 ####TAOISM LABORATORYCLIA [id number] [place] [address] [place] Chloride [Moles/Vol]101 mmol/DZdhpim79-303Vailpjtz HospitalComment on above: Order Comment: Specimen Type: BLOOD SPECIMENOrdering Facility: [facility] Address:[address] [place], [place] [address]Performed By: #### 18770-8 ####TAOISM LABORATORYCLIA [id number] [place] [id number] [place] AMERICACO2 [Moles/Vol]27 mmol/L Mzvrys69-24Oewpvjlz HospitalComment on above:Order Comment: Specimen Type: BLOOD SPECIMENOrdering Facility: [facility] Address:[address] [place], [place] [address]Performed By: #### 46215-8 ####TAOISM LABORATORYCLIA [id number] [place] [id number] [place] AMERICACreatinine [Mass/Vol]1.18 mg/dLNormal0.73-1.22Luther HospitalComment on above:Order Comment: Specimen Type: BLOOD SPECIMENOrdering Facility: [facility] Address:[address] [place], [place] [address] Performed By: #### 78799-9 ####TAOISM LABORATORYCLIA [id number] [place] [id number] [place] OF AMERICAESTIMATED GLOMERULAR FILTRATION RATE70 mL/min/1.73m???Normal>=60[facility] HospitalComup health system on above:Order Comment: Specimen Type: BLOOD SPECIMENOrdering Facility: [facility] Address:[address] [place] [address] Result Comment: Estimated Glomerular Filtration Rate (eGFR) is calculated using the 2020 CKD-EPI creatinine equation. This equation utilizes serum creatinine, sex, and age as parameters. The creatinine assay has traceable calibration to isotope dilution-mass spectrometry. Refer to KDIGO guidelines for clinical interpretation. In patients with unstable renal function, e.g. those with acute kidney injury, the eGFR may not accurately reflect actual GFR.Performed By: #### 38576-9 ####TAOISM LABORATORYCLIA [id number] [place] [address] [place] AMERICAGlucose [Mass/Vol]124 mg/dL Exwi21-44Fyqqpjei HospitalComment on above:Order Comment: Specimen Type: BLOOD SPECIMENOrdering Facility: [facility] Address:[address] [place], [place] [address]Result Comment: The [place] Diabetes Association (ADA) provides guidance for cutoff [...] Standards of Medical Care in Diabetes 2016, [place] Diabetes Association. Diabetes Care. 2016.39(Suppl 1).Performed By: #### 43307-4 ####TAOISM LABORATORYCLIA [id number] [place] [id number] [place] OF AMERICAPotassium [Moles/Vol]4.1 mmol/L Normal3.7-5.1Lblanchard valley health system [facility]uff[facility] HospitalComment on above:Order Comment: Specimen Type: BLOOD SPECIMENOrdering Facility: [facility] Address:[address] [place], [place] [address]Performed By: #### 56398-3 ####TAOISM LABORATORYCLIA [id number] [address] [place] [address] [place] [facility]TE[facility] NYACK HOSPITALSodium [Moles/Vol]137 mmol/PVclzdt420-784Zboyanvf HospitalComment on above:Order Comment: Specimen Type: BLOOD SPECIMENOrdering Facility: [facility] Address:[address] [place], [place] [address]Performed By: #### 96555-1 ####TAOISM LABORATORYCLIA [id number] [address] [place] [address] [place] AMERICAUrea nitrogen [Mass/Vol]9 mg/dLNormal9-24L[facility]-Day HospitalComment on above:Order Comment: Specimen Type: BLOOD SPECIMENOrdering Facility: [facility] Address:[address] [place], [place] [address]Performed By: #### 01124-8 ####TAOISM LABORATORYCLIA [id number] [place] [id number] [facility] OF AMERICACBC panel Auto (Bld)on 91-65-5628Qyionirgxnq distribution width (RBC) [Ratio]15.9 %High11.5-15.0 [facility] HospitalComment on above:Order Comment: Specimen Type: BLOOD SPECIMEN Order[facility] Address: [address] [place], [place] [address]Performed By: #### 09921-9 #### [facility] CLIA [id number] [address] [place], [place] [address] [place] OF AMERICAHematocrit (Bld) [Volume fraction]25.4 %Low39.0-51.0L[facility]-Day HospitalComment on above:Order Comment: Specimen Type: BLOOD SPECIMEN Order[facility] Facility[facility] Address: [address] [place], [place] [address]Performed By: #### 07086-9 #### [facility] [place] [id number] [address] [place], [place] [address]Hemoglobin (Bld) [Mass/Vol]8.1 g/dLLow13.0-17.0Lutheran HospitalComment on above:Order Comment: Specimen Type: BLOOD SPECIMEN Order[facility] Facility[facility] Address: [address] [place], [place] [address]Performed By: #### 08736-0 #### [facility] IA [id number] [address] [place] [address] (RBC) [Entitic mass]27.6 zwYmaafs67.0-34.0Lutheran HospitalComment on above:Order Comment: Specimen Type: BLOOD SPECIMEN Order[facility] Facility[facility] Address: [address] [place], [place] [address]Performed By: #### 89327-2 #### [facility] [place] [id number] [address] [place] [address] (RBC) [Mass/Vol]31.9 g/xUSocvtu11.5-36.0Lutheran HospitalComment on above:Order Comment: Specimen Type: BLOOD SPECIMEN [facility] Facility[facility] Address: [address] [place], [place] [address]Performed By: #### 48358-1 #### [facility] [place] [id number] [address] [place], [place] [address] [facility] (RBC) [Entitic vol]86.4 wDMyufpz95.0-100.0Lutheran HospitalComment on above:Order Comment: Specimen Type: BLOOD SPECIMEN Order[facility] Facility[facility] Address: [address] [place], [place] [address]Performed By: #### 59940-1 #### [facility] CLIA [id number] [address] [place] [address] [place] [address] [place] AMERICANucleated RBC (Bld) [#/Vol]10*3/uLNormal<0.01Lutheran HospitalComment on above:Order Comment: Specimen Type: BLOOD SPECIMEN [facility] Address: [address] [place], [place] [address]Performed By: #### 10293-8 #### [facility] CLIA [id number] [facility] [address] [place] OF AMERICAPlatelet mean volume (Bld) [Entitic vol]11.0 fLNormal9.0-12.7Lutheran HospitalComment on above:Order Comment: Specimen Type: BLOOD SPECIMEN [facility] Address: [address] [place], [place] [address]Performed By: #### 44582-0 #### [facility] IA [id number] [address] [place], [place] [address] [place] OF AMERICAPlatelets (Bld) [#/Vol]266 10*3/gTXcfwvi852-083Gtcrrghh HospitalComment on above:Order Comment: Specimen Type: BLOOD SPECIMEN [facility] Address: [address] [place], [place] [address]Performed By: #### 65543-3 #### [facility] [place] [id number] [address] [place] [address] [place] MONTE[facility] NYACK HOSPITALRBC (Bld) [#/Vol] 2.94 10*6/uLLow4.20-6.00Lutheran HospitalComment on above:Order Comment: Specimen Type: BLOOD SPECIMEN [facility] Address: [address] [place], [place] [address]Performed By: #### 14086-1 #### [facility] CLIA [id number] [address] [place], [place] [address] [facility] AMERICAWBC (Bld) [#/Vol] 3.60 10*3/uLLow3.70-11.00[facility] HospitalComment on above:Order Comment: Specimen Type: BLOOD SPECIMEN Order[facility] Address: [address] [place] [address]Fsdkkfdiu By: #### 93553-1 #### [facility] CLIA [id number] [address] [place] [address] ATTN PANDA [address]THERAPY NTon 57-47-4525YSARBMY NTHNO ID: [id number] Author: Jon Calderón PTA Service: Physical Therapy Author Type: Paraprofessional Education Assistant Type: Therapy (PT/OT/Speech/Resp) Filed: 01/05/2022 11:33 AM Note Text: Attestation signed by Italia Morales PT at 01/06/2022 4:59 PM I reviewed and agree with the documentation corresponding to this therapy visit. SIGNATURE: Italia Morales PT DATE: January 06, 2022 TIME: 4:59 PM Physical Therapy Treatment SERVICE DATE: 01/05/2022 SERVICE TIME: 1040 to 1110 ROOM: [place] [address] Recommended Discharge Disposition: Subacute/SNF Recommended Discharge Disposition [...] at Home Physical Assist at Home for: Cleaning;Laundry;Meals;Safety;Transportation;Shopping Supervision at Home due to: Decreased safety [...] Impairment;Balance Impaired Treatment Interventions: Education;Energy Conservation Training;Joint Mobility;Strengthening;Functional Mobility Training;Balance Training;Edema Management;Pain Management Modalities: Ice [...] shower Laundry: first floor Equipment Owned: Cane;Wheeled Walker;Handstitching Machine Collar Feller;Grab Bars-Shower;ADL Kit;Elevated Toilet Seat;Shower Chair;Elastic Shoe Laces;Hospital Bed (PEr pt he does not have elevated toilet seat, sock aid etc.) Prior Functional Level: Required Assistance Assistance Required With: Cleaning;Laundry;Transportation Prior Functional Level Comments: Patient vague and questionable historian. Has hospital bed but sleeping on sofa with his dog. Unclear using walker as per pt initially for 2 weeks he did not use walker. Per pt spends most of his time laying down. Microwaves meals. Online orders from [facility]. Per pt he puts on his socks [...] Gait Device: Wheeled Wa (more content not included)...NormalLutgood samaritan hospital HospitalBasic metabolic 2000 panelon 71-99-6052Nmivs gap [Moles/Vol]8 mmol/LLow9-18[facility] HospitalComment on above:Order Comment: Specimen Type: BLOOD SPECIMEN [facility] Address: [address] [place] [id number] By: #### 46137-7 #### [facility] CLIA [id number] [address] [place] [address] [place] AMERICACalcium [Mass/Vol] 8.5 mg/dLNormal8.5-10.2[facility]abraz[facility] campus HospitalComment on above:Order Comment: Specimen Type: BLOOD SPECIMEN [facility]ing Facility[facility] Address: [address] [place] [phone] By: #### 11812-1 #### [facility] CLIA [id number] [facility]0 [place] [id number] [place] OF AMERICAChloride [Moles/Vol]103 mmol/ZEnsuld55-058Zufdwzxz HospitalComment on above:Order Comment: Specimen Type: BLOOD SPECIMEN Ordering Facility: [facility] Address: [address] [place], [place] [address]Performed By: #### 42087-3 #### [facility] CLIA [id number] [address] [place], [place] [address] [place] OF AMERICACO2 [Moles/Vol]28 mmol/PFfbxbq50-11Pzusraos HospitalComment on above:Order Comment: Specimen Type: BLOOD SPECIMEN Ordering Facility: [facility] Address: [address] [place], [place] [address]Performed By: #### 81005-9 #### [facility] CLIA [id number] [address] [place] [address] [place] AMERICACreatinine [Mass/Vol]1.38 mg/dLHigh0.73-1.22[facility] HospitalComment on above:Order Comment: Specimen Type: BLOOD SPECIMEN Ordering Facility: [facility] Address: [address] [place], [place] [address]Performed By: #### 58939-5 #### [facility] IA [id number] [address] [place], [place] [address] [place] OF AMERICAESTIMATED GLOMERULAR FILTRATION RATE58 mL/min/1.73m???Low>=60L[facility]onorhealth [facility] centeran HospitalComment on above:Order Comment: Specimen Type: BLOOD SPECIMEN Ordering Facility: [facility] Address: [address] [place], [place] [address]Result Comment: Estimated Glomerular Filtration Rate (eGFR) is calculated using the 2020 CKD-EPI cre atinine equation. This equation utilizes serum creatinine, sex, and age as parameters. The creatinine assay has traceable calibration to isotope dilution- mass spectrometry. Refer to KDIGO guidelines for clinical interpretation. In patients with unstable renal function, e.g. those with acute kidney injury, the eGFR may not accurately reflect actual GFR.Performed By: #### 41946-1 #### [facility] IA [id number] [address] [place] [address] [place] AMERICAGlucose [Mass/Vol] 106 mg/hERida60-57Jfajsivn HospitalComment on above:Order Comment: Specimen Type: BLOOD SPECIMEN Ordering Facility: [facility] Address: [address] [place], [place] [address]Result Comment: The [place] Diabetes Association (ADA) provides guidance for cutoff [...] Standards of Medical Care in Diabetes 2016, [place] Diabetes Association. Diabetes Care. 2016.39(Suppl 1).Performed By: #### 71381-4 #### [facility] IA [id number] [address] [place] [address] [place] AMERICAPotassium [Moles/Vol]4.4 mmol/LNormal3.7-5.1[facility] HospitalComment on above:Order Comment: Specimen Type: BLOOD SPECIMEN Ordering Facility: [facility] Address: [address] [place], [place] [address]Performed By: #### 60993-0 #### [facility] IA [id number] [address] [address] [place] AMERICASodium [Moles/Vol] 139 mmol/PMdekwi886-768Nkumnvkt HospitalComment on above:Order Comment: Specimen Type: BLOOD SPECIMEN Ordering Facility: [facility] Address: [address] [place], [place] [address]Performed By: #### 11452-4 #### [facility] CLIA [id number] [address] [place] [address] [place] AMERICAUrea nitrogen [Mass/Vol]11 mg/dLNormal9-24[facility] HospitalComment on above:Order Comment: Specimen Type: BLOOD SPECIMEN Ordering Facility: [facility] Address: [address] [place], [place] [address]Performed By: #### 19303-1 #### [facility] CLIA [id number] [address] [place], [place] [address] [facility] HOSPITALCBC panel Auto (Bld)on 79-03-4452Lgqofaqgcmj distribution width (RBC) [Ratio]15.8 %High 11.5-15.0[facility] HospitalComment on above:Order Comment: Specimen Type: BLOOD SPECIMENOrdering Facility: [facility] Address:[address] [place], [place] [address]Performed By: #### 75238-7 ####[facility]ORYCLIA [id number] [place] [address] [place] [facility]ACK HOSPITALHematocrit (Bld) [Volume fraction]25.1 %Low39.0-51.0[facility] Hospital Comment on above:Order Comment: Specimen Type: BLOOD SPECIMENOrdering Facility: [facility] Address:[address] [place] [address] Performed By: #### 18070-4 ####[facility]ORYCLIA [id number] [place] [address] [facility] HOSPITALHemoglobin (Bld) [Mass/Vol]8.0 g/dLLow13.0-17.0[facility] HospitalComment on above:Order Comment: Specimen Type: BLOOD SPECIMENOrdering Facility: [facility] Address:[address] [place], [place] [address]Performed By: #### 17449-5 ####[facility]ORYCLIA [id number] [place] [address] [facility] AMERICAMCH (RBC) [Entitic mass]27.8 xtRnwqhu41.0-34.0Lutheran HospitalComment on above:Order Comment: Specimen Type: BLOOD SPECIMENOrdering Facility: [facility] Address:[address] [place], [place] [address]Performed By: #### 73192-5 ####[facility]ORYCLIA [id number] [address] [place], [place] [address]MCHC (RBC) [Mass/Vol]31.9 g/hZMdqtis15.5-36.0Lutheran HospitalComment on above:Order Comment: Specimen Type: BLOOD SPECIMENOrdering Facility: [facility] Address:[address] [place], [place] [address]Performed By: #### 58954-7 ####[facility]ORYCLIA [id number] [address]ETMCV (RBC) [Entitic vol]87.2 yWOxxeri41.0-100.0Lutheran HospitalComment on above: Order Comment: Specimen Type: BLOOD SPECIMENOrdering Facility: [facility] Address:[address] [place], [place] [address]Performed By: #### 88885-9 ####[facility]ORYCLIA [id number] [address] RBC (Bld) [#/Vol] 10*3/uLNormal<0.01Lutheran HospitalComment on above:Order Comment: Specimen Type: BLOOD SPECIMENOrdering Facility: [facility] Address:[address] [place], [place] [address]Performed By: #### 61896-6 ####[facility]ORY[facility]IA [id number] [place] [address] [facility] HOSPITALPlatelet mean volume (Bld) [Entitic vol]11.1 fLNormal 9.0-12.7Lutheran HospitalComment on above:Order Comment: Specimen Type: BLOOD SPECIMENOrdering Facility: [facility] Address:[address] [place], [place] [address]Performed By: #### 09798-8 ####[facility]ORYCLIA [id number] [address]ETPlatebellevue hospital (Bld) [#/Vol]205 10*3/fXOfxrkb041-301Dvjumkzm Hospital Comment on above:Order Comment: Specimen Type: BLOOD SPECIMENOrdering Facility: [facility] Address:[address] [place] [address] Performed By: #### 40325-5 ####[facility]ORYCLIA [id number] [address] (d) [#/Vol]2.88 10*6/uLLow4.20-6.00Latter-Day HospitalComment on above:Order Comment: Specimen Type: BLOOD SPECIMENOrdering Facility: [facility] Address:[address] [place], [place] [address]Performed By: #### 33051-3 ####[facility]ORYCLIA [id number] [address]W (d) [#/Vol]4.55 10*3/uLNormal 3.70-11.00[facility] HospitalComment on above:Order Comment: Specimen Type: BLOOD SPECIMENOrdering Facility: [facility] Address:[address] [place], [place] [address]Performed By: #### 47102-4 ####[facility]ORYCLIA [id number] [place] [address] [facility]OSPITALURSLEMUEL [facility] PROGon 13-18-6600VFESNCZ PROCYNDYNO ID: [id number] Author: Venkatesh Cheney RN Service: Nursing Author Type: Registered Nurse Type: Nursing Progress Note Filed: 01/04/2022 5:39 PM Note Text: Assumed care of patient from RN, Aislinn. Patient is alert and oriented x3 and has no needs at this time. Will continue to monitor patient status.[facility] HospitalTHERAPY NTon 14-52-0919EORERRD NTHNO ID: [id number] Author: Jon Calderón PTA Service: Physical Therapy Author Type: Paraprofessional Education Assistant Type: Therapy (PT/OT/Speech/Resp) Filed: 01/04/2022 3:56 PM Note Text: Attestation signed by Italia Morales PT at 01/06/2022 4:59 PM I reviewed and agree with the documentation corresponding to this therapy visit. SIGNATURE: Italia Morales PT DATE: January 06, 2022 TIME: 4:59 PM Physical Therapy Treatment SERVICE DATE: 01/04/2022 SERVICE TIME: 1310 to 1348 ROOM: [place] [address] Recommended Discharge Disposition: Subacute/SNF Recommended Discharge Disposition [...] at Home Physical Assist at Home for: Cleaning;Laundry;Meals;Safety;Transportation;Shopping Supervision at Home due to: Decreased safety [...] Impairment;Balance Impaired Treatment Interventions: Energy Conservation Training;Joint Mobility;Strengthening;Functional Mobility Training;Balance Training;Modalities;Edema Management;Pain Management Modalities: Ice Home Environment Patient Lives With: Self/Alone;Other: See Comment (sister, mom and friends help) Assistance Available: PRN Entry To Home: Stairs;With Rail Number Of Stairs Into Home: 5 Number Of Stairs To Bed/Bath: 1st floor set up Stairs to Bed/Bath with: Unilateral Rail Tub/Shower Type: tub shower Laundry: first floor Equipment Owned: Cane;Wheeled Walker;Handstitching Machine Collar Feller;Grab Bars-Shower;ADL Kit;Elevated Toilet Seat;Shower Chair;Elastic Shoe Laces;Hospital Bed (PEr pt he does not have elevated toilet seat, sock aid etc.) Prior Functional Level: Required Assistance Assistance Required With: Cleaning;Laundry;Transportation Prior Functional Level Comments: Patient vague and questionable historian. Has hospital bed but sleeping on sofa with his dog. Unclear using walker as per pt initially for 2 weeks he did not use walker. Per pt spends most of his time laying down. Microwaves meals. Online orders from [facility]. Per pt he puts on his socks [...] balance while turning he (more content not included)...[facility] [id number] HEALTHHNO ID: [id number] Author: RT Shay(R) Service: Radiology Author Type: [...] BY: RT Shay(R) January 03, 2022 9:24 AMNormalLutheran HospitalBasic metabolic 2000 [facility] healthcare corporationon 33-85-7776Qurgm gap [Moles/Vol]7 mmol/LLow9-18Lutheran HospitalComment on above: Order Comment: Specimen Type: BLOOD SPECIMENOrdering Facility: [facility] Address:[address] [place] [address] [place] [address]Cxrcxhzro By: #### 68778-9 ####[facility]ORYCLIA [id number] [address] [place] [address], [facility]13 [place] AMERICACalcium [Mass/Vol]8.4 mg/dL Low8.5-10.2[facility] HospitalComment on above:Order Comment: Specimen Type: BLOOD SPECIMENOrdering Facility: [facility] Address:[address] [place], [place] [address]Performed By: #### 17215-2 ####[facility]ORYCLIA [id number] [address] [place], [place] [address] [place] AMERICAChloride [Moles/Vol]104 mmol/STginvj29-255Qzxqstrk HospitalComment on above:Order Comment: Specimen Type: BLOOD SPECIMENOrdering Facility: [facility] Address:[address] [place], [place] [address]Performed By: #### 62755-1 ####[facility]ORYCLIA [id number] [place] [address] [place] AMERICACO2 [Moles/Vol]29 mmol/L Hokthu00-75Rityqqwb HospitalComment on above:Order Comment: Specimen Type: BLOOD SPECIMENOrdering Facility: [facility] Address:[address] [place], [place] [address]Performed By: #### 96076-1 ####[facility]ORYCLIA [id number] [address] [place], [place] [address] [place] AMERICACreatinine [Mass/Vol]1.23 mg/dLHigh0.73-1.22[facility] HospitalComment on above:Order Comment: Specimen Type: BLOOD SPECIMENOrdering Facility: [facility] Address:[address] [place] [address] Performed By: #### 16004-2 ####[facility]ORYCLIA [id number] [address] [place], [place] [address] [place] AMERICAESTIMATED GLOMERULAR FILTRATION RATE66 mL/min/1.73m???Normal>=60[facility] HospitalComment on above:Order Comment: Specimen Type: BLOOD SPECIMENOrdering Facility: [facility] Address:[address] [place], [place] [address] Result Comment: Estimated Glomerular Filtration Rate (eGFR) is calculated using the 2020 CKD-EPI creatinine equation. This equation utilizes serum creatinine, sex, and age as parameters. The creatinine assay has traceable calibration to isotope dilution-mass spectrometry. Refer to KDIGO guidelines for clinical interpretation. In patients with unstable renal function, e.g. those with acute kidney injury, the eGFR may not accurately reflect actual GFR.Performed By: #### 67008-5 ####[facility]ORYCLIA [id number] [place] [address] [place] AMERICAGlucose [Mass/Vol]110 mg/dL Mtjr38-95Ulwzkrpr HospitalComment on above:Order Comment: Specimen Type: BLOOD SPECIMENOrdering Facility: [facility] Address:[address] [place] [address]Result Comment: The [place] Diabetes Association (ADA) provides guidance for cutoff [...] Standards of Medical Care in Diabetes 2016, [place] Diabetes Association. Diabetes Care. 2016.39(Suppl 1).Performed By: #### 24136-0 ####[facility]ORYCLIA [id number] [place] [id number] [place] AMERICAPotassium [Moles/Vol]4.3 mmol/L Normal3.7-5.1LKindred HealthcareComment on above:Order Comment: Specimen Type: BLOOD SPECIMENOrdering Facility: [facility] Address:[address] [place] [address]Performed By: #### 32617-8 ####[facility]ORYCLIA [id number] [place] [address] [facility] HOSPITALSodium [Moles/Vol]140 mmol/NTsyqfx830-811Vuqapxcq HospitalComment on above:Order Comment: Specimen Type: BLOOD SPECIMENOrdering Facility: [facility] Address:[address] [place], [place] [address]Performed By: #### 03636-8 ####[facility]ORYCLIA [id number] [place] [address] [place] AMERICAUrea nitrogen [Mass/Vol]10 mg/dLNormal9-24Lutheran HospitalComment on above:Order Comment: Specimen Type: BLOOD SPECIMENOrdering Facility: [facility] Address:[address] [place], [place] [address]Performed By: #### 75282-9 ####[facility]ORYCLIA [id number] [place] [id number] [facility] HOSPITALCASE MANAGESt. Louis Va Medical Center 16-48-7793OBPG MANAGEMHNO ID: [id number] Author: Gracia Lr RN Service: ? Author Type: Registered Nurse Type: Care Mgt Progress Note Filed: 01/03/2022 2:34 PM Note Text: CARE MANAGEMENT PROGRESS NOTE SERVICE DATE: 01/03/2022 SERVICE TIME: 2:29 pm LOS: 3 days After many attempts over the last couple of days, I have now spoken to someone at [facility] where patient really wants to go, they have staffing issues in intake, state they will look at referral. Per rounds with [facility] this afternoon, surgeon wants patient here over the weekend. CM department will continue to follow. SIGNATURE: Gracia Lr RN PATIENT NAME: Mary Jimenez DATE: January 03, 2022 TIME: 2:29 PM PAGER/CONTACT #: [phone] HospitalCBC panel Auto (Bld)on 78-11-6400Szromwitpub distribution width (RBC) [Ratio]15.9 %High 11.5-15.0Luther HospitalComment on above:Order Comment: Specimen Type: BLOOD SPECIMENOrdering Facility: [facility] Address:[address] [place], [place] [address]Performed By: #### 53520-0 ####[facility]ORYCLIA [id number] [address] [place], [place] [address] [facility] HOSPITALHematocrit (Bld) [Volume fraction]24.4 %Low39.0-51.0[facility] Hospital Comment on above:Order Comment: Specimen Type: BLOOD SPECIMENOrdering Facility: [facility] Address:[address] [place] [address] Performed By: #### 61626-0 ####[facility]ORYCLIA [id number] [address] STREETHemoglobin (Bld) [Mass/Vol]7.6 g/dLLow13.0-17.0[facility] HospitalComment on above:Order Comment: Specimen Type: BLOOD SPECIMENOrdering Facility: [facility] Address:[address] [place], [place] [address]Performed By: #### 99109-3 ####[facility]ORYCLIA [id number] [place] [id number] [facility] (RBC) [Entitic mass]27.4 luRcpoel30.0-34.0Luther HospitalComment on above:Order Comment: Specimen Type: BLOOD SPECIMENOrdering Facility: [facility] Address:[address] [place], [place] [address]Performed By: #### 99229-8 ####[facility]ORYCLIA [id number] [place] [id number] [facility] (RBC) [Mass/Vol]31.1 g/mGRshxvc60.5-36.0Lutheran HospitalComment on above:Order Comment: Specimen Type: BLOOD SPECIMENOrdering Facility: [facility] Address:[address] [place], [place] [address]Performed By: #### 99598-0 ####[facility]ORYCLIA [id number] [place] [id number] [place] AMERICAMCV (RBC) [Entitic vol]88.1 rFAhnlzk51.0-100.0[facility] HospitalComment on above: Order Comment: Specimen Type: BLOOD SPECIMENOrdering Facility: [facility] Address:[address] [place], [place] [address]Performed By: #### 37978-1 ####[facility]ORYCLIA [id number] [place] [id number] [place] AMERICANucleated RBC (Bld) [#/Vol] 10*3/uLNormal<0.01[facility] HospitalComment on above:Order Comment: Specimen Type: BLOOD SPECIMENOrdering Facility: [facility] Address:[address] [place], [place] [address]Performed By: #### 47301-2 ####[facility]ORYCLIA [id number] [place] [id number] [place] AMERICAPlatelet mean volume (Bld) [Entitic vol]11.6 fLNormal 9.0-12.7[facility] HospitalComment on above:Order Comment: Specimen Type: BLOOD SPECIMENOrdering Facility: [facility] Address:[address] [place], [place] [address]Performed By: #### 41849-3 ####[facility]ORYCLIA [id number] [place] [id number] [place] AMERICAPlatelets (Bld) [#/Vol]177 10*3/qFJmjyuv463-106Bnsrtsza Hospital Comment on above:Order Comment: Specimen Type: BLOOD SPECIMENOrdering Facility: [facility] Address:[address] [place], [place] [address] Performed By: #### 71310-1 ####[facility]ATORYCLIA [id number] [place] [id number] [facility] HOSPITALRB (Bld) [#/Vol]2.77 10*6/uLLow4.20-6.00[facility] HospitalComment on above:Order Comment: Specimen Type: BLOOD SPECIMENOrdering Facility: [facility] Address:[address] [place], [place] [address]Performed By: #### 58755-5 ####[facility]ATORYCLIA [id number] [address]W (Bld) [#/Vol]5.21 10*3/uLNormal 3.70-11.00[facility] HospitalComment on above:Order Comment: Specimen Type: BLOOD SPECIMENOrdering Facility: [facility] Address:[address] [place], [place] [address]Nadeem [place]RESALEXANDER [place] [address]Performed By: #### 07583-9 ####[facility]ATORYCLIA [id number] [address]ETCONSULT PROGon 34-96-1823TYKJUTX PRONO ID: [id number] Author: King Albrecht PA-C Service: Pain Management Author Type: Physician Respiratory Therapy Manager Type: Consult Progress Note Filed: 01/03/2022 8:49 AM Note Text: Attestation signed by Albert Candelaria MD at 01/03/2022 9:32 AM I reviewed the pertinent patient history and agree with the RAIMUNDO's recommended plan for care. Albert Candelaria MD INPATIENT PAIN MANAGEMENT PROGRESS NOTE Patient Name: [...] Value 01/03/2022 88.1 MCH (more content not included)...[facility] 01-03-2022 THERAPY NTHNO ID: [id number] Author: iDonte Estrada PT Service: Physical Therapy Author Type: Physical Therapist Type: Therapy (PT/OT/Speech/Resp) Filed: 01/03/2022 2:12 PM Note Text: Physical Therapy Treatment SERVICE DATE: 01/03/2022 SERVICE TIME: 1320 to 1349 ROOM: [place] [address] Recommended Discharge Disposition: Subacute/SNF Recommended Discharge Disposition [...] at Home Physical Assist at Home for: Cleaning;Laundry;Meals;Safety;Transportation;Shopping Supervision at Home due to: Decreased safety [...] Impairment;Balance Impaired Treatment Interventions: Education;Energy Conservation Training;Joint Mobility;Strengthening;Functional Mobility Training;Balance Training;Neuromuscular Re-education Plan for next [...] shower Laundry: first floor Equipment Owned: Cane;Wheeled Walker;Handstitching Machine Collar Feller;Grab Bars-Shower;ADL Kit;Elevated Toilet Seat;Shower Chair;Elastic Shoe Laces;Hospital Bed (PEr pt he does not have elevated toilet seat, sock aid etc.) Prior Functional Level: Required Assistance Assistance Required With: Cleaning;Laundry;Transportation Prior Functional Level Comments: Patient vague and questionable historian. Has hospital bed but sleeping on sofa with his dog. Unclear using walker as per pt initially for 2 weeks he did not use walker. Per pt spends most of his time laying down. Microwaves meals. Online orders from [facility]. Per pt he puts on his socks [...] Standing Balance: Good Patien (more content not included)...UK HealthcareO ID: [id number] Author: Christine Recio OT/Ida Service: Occupational Therapy Author Type: Occupational Therapist Type: Therapy (PT/OT/Speech/Resp) Filed: 01/03/2022 10:53 AM Note Text: Occupational Therapy Treatment SERVICE DATE: 01/03/2022 SERVICE TIME: 1012 to 1037 ROOM: [place] [address] Recommended Discharge Disposition: Subacute/SNF Recommended Discharge Disposition Due to: Patient requires daily, facility-based rehabilitation from at least one discipline due to:;decline in functional status requiring daily skilled care;ongoing intervention of multiple therapy disciplines Anticipated Discharge Needs: Physical Assist at Home;Supervision at Home Physical Assist at Home for: Cleaning;Laundry;Meals;Safety;Transportation;Shopping Supervision at Home due to: Decreased safety [...] shower Laundry: first floor Equipment Owned: Cane;Wheeled Walker;Handstitching Machine Collar Feller;Grab Bars-Shower;ADL Kit;Elevated Toilet Seat;Shower Chair;Elastic Shoe Laces;Hospital Bed (PEr pt he does not have elevated toilet seat, sock aid etc.) Prior Functional Level: Required Assistance Assistance Required With: Cleaning;Laundry;Transportation Prior Functional Level Comments: Patient vague and questionable historian. Has hospital bed but sleeping on sofa with his dog. Unclear using walker as per pt initially for 2 weeks he did not use walker. Per pt spends most of his time laying down. Microwaves meals. Online orders from [facility]. Per pt he puts on his socks [...] activity not attempted Learning/Educational Needs: Discharge Plan;Equipment;Family Education/Training;Functional Activities/Mobility;Plan of Care;Precautions;Rehabilitation Techniques and Procedures;Safety;Self Care Goals for Plan [...] daily living (ADL);Muscle Weaknes (more content not included)...[facility], Edwin ShawXR LUMBAR 2V AP/LATon 29-91-3471TT LUMBAR 2V AP/LAT* * *Final Report* * * DATE OF [...] disc spaces are maintained. IMPRESSION: Postoperative changes. Reactor Operator: PSCB Transcribe Date/Time: Jan 03 2022 10:01A Dictated by : VEDA KIRKLAND DO This examination was interpreted and the report reviewed and electronically signed by: VEDA KIRKLAND DO on Jan 03 2022 10:10AM EST [id number] samaritan hospital HospitalBasic metabolic 2000 panelon 19-40-4243Oxlzp gap [Moles/Vol]7 mmol/LLow9-18[facility] HospitalComment on above: Order Comment: Specimen Type: BLOOD SPECIMENOrdering Facility: [facility] Address:[address] [place], [place] [address]Performed By: #### 73558-3 ####[facility] LABORATORYCLIA [id number] [place] [address] [place] AMERICACalcium [Mass/Vol]8.4 mg/dL Low8.5-10.2[facility]abrazo west campus HospitalComment on above:Order Comment: Specimen Type: BLOOD SPECIMENOrdering Facility: [facility] Address:[address] [address] [place], [place] [address]Performed By: #### 93055-1 ####TAOISM LABORATORYCLIA [id number] [place] [id number] [place] STATES OF AMERICAChloride [Moles/Vol]100 mmol/EEmshja57-725Unphpjgx HospitalComment on above:Order Comment: Specimen Type: BLOOD SPECIMENOrdering Facility: [facility] Address:[address] [place], [place] [address]Performed By: #### 81645-7 ####TAOISM LABORATORYCLIA [id number] [place] [id number] [place] OF AMERICACO2 [Moles/Vol]30 mmol/L Dlvmwu52-04Wuazuxcj HospitalComment on above:Order Comment: Specimen Type: BLOOD SPECIMENOrdering Facility: [facility] Address:[address] [place], [place] [address]Performed By: #### 04324-3 ####TAOISM LABORATORYCLIA [id number] [place] [id number] [place] OF AMERICACreatinine [Mass/Vol]1.22 mg/dLNormal0.73-1.22Lutheran HospitalComment on above:Order Comment: Specimen Type: BLOOD SPECIMENOrdering Facility: [facility] Address:[address] [place] [address] Performed By: #### 70590-9 ####TAOISM LABORATORYCLIA [id number] [place] [id number] [place] OF AMERICAESTIMATED GLOMERULAR FILTRATION RATE67 mL/min/1.73m???Normal>=60Lutheran HospitalComment on above:Order Comment: Specimen Type: BLOOD SPECIMENOrdering Facility: [facility] Address:[address] [place] [address] Result Comment: Estimated Glomerular Filtration Rate (eGFR) is calculated using the 2020 CKD-EPI creatinine equation. This equation utilizes serum creatinine, sex, and age as parameters. The creatinine assay has traceable calibration to isotope dilution-mass spectrometry. Refer to KDIGO guidelines for clinical interpretation. In patients with unstable renal function, e.g. those with acute kidney injury, the eGFR may not accurately reflect actual GFR.Performed By: #### 55875-3 ####TAOISM LABORATORYCLIA [id number] [place] [id number] [place] OF AMERICAGlucose [Mass/Vol]117 mg/dL Nsmh93-00Irsmvhoz HospitalComment on above:Order Comment: Specimen Type: BLOOD SPECIMENOrdering Facility: [facility] Address:[address] [place], [place] [address]Result Comment: The [place] Diabetes Association (ADA) provides guidance for cutoff [...] Standards of Medical Care in Diabetes 2016, [place] [employer]. Diabetes Care. 2016.39(Suppl 1).Performed By: #### 92578-8 ####TAOISM LABORATORYCLIA [id number] [place] [address] [place] AMERICAPotassium [Moles/Vol]3.8 mmol/L Normal3.7-5.1Luthabrazo west campus HospitalComment on above:Order Comment: Specimen Type: BLOOD SPECIMENOrdering Facility: [facility] Address:[address] [place], [place] [address]Performed By: #### 73289-8 ####TAOISM LABORATORYCLIA [id number] [place] [id number] [place] OF AMERICASodium [Moles/Vol]137 mmol/KWwtxul696-262Gubgpfkw HospitalComment on above:Order Comment: Specimen Type: BLOOD SPECIMENOrdering Facility: [facility] Address:[address] [place], [place] [address]Performed By: #### 01633-1 ####TAOISM LABORATORYCLIA [id number] [place] [address] [place] AMERICAUrea nitrogen [Mass/Vol]10 mg/dLNormal9-24[facility] HospitalComment on above:Order Comment: Specimen Type: BLOOD SPECIMENOrdering Facility: [facility] Address:[address] [place], [place] [address]Performed By: #### 11133-8 ####TAOISM LABORATORYCLIA [id number] [place] [id number] [facility] HOSPITALCASE MANAGEMon [id number] MANAGEMHNO ID: [id number] Author: Gracia Lr RN Service: ? Author Type: Registered Nurse Type: Care Mgt Progress Note Filed: 01/02/2022 4:22 PM Note Text: CARE MANAGEMENT PROGRESS NOTE SERVICE DATE: 01/02/2022 SERVICE TIME: 4:17 pm LOS: 2 days Have had no response from referral placed yesterday in [facility] to [facility], also left them (3) phone messages, sister said she knows someone there and she found out that intake person not there today, someone else covering. More referrals placed, and therapy told me he also could very well be ready to go home. Per [employer] MOTHER , not ready for DC today. CM department will continue to follow. SIGNATURE: Gracia Lr RN PATIENT NAME: Mary Jimenez DATE: January 02, 2022 TIME: 4:17 PM PAGER/CONTACT #: [phone] HospitalCBC panel Auto (Bld)on 58-42-8910Sjjgulmplrc distribution width (RBC) [Ratio]16.3 %High 11.5-15.0[facility] HospitalComment on above:Order Comment: Specimen Type: BLOOD SPECIMENOrdering Facility: [facility] Address:[address] [place], [place] [address]Performed By: #### 57286-8 ####TAOISM LABORATORYCLIA [id number] [place] [id number] [facility] HOSPITALHematocrit (Bld) [Volume fraction]26.4 %Low39.0-51.0[facility] Comment on above:Order Comment: Specimen Type: BLOOD SPECIMENOrdering Facility: [facility] Address:[address] [place], [place] [address] Performed By: #### 85279-6 ####TAOISM LABORATORYCLIA [id number] [address] [place], [place] [address] [facility] HOSPITALHemoglobin (Bld) [Mass/Vol]8.1 g/dLLow13.0-17.0Lutheran HospitalComment on above:Order Comment: Specimen Type: BLOOD SPECIMENOrdering Facility: [facility] Address:[address] [place], [place] [address]Performed By: #### 95189-7 ####TAOISM LABORATORYCLIA [id number] [address] [place], [place] [address] [facility] (RBC) [Entitic mass]26.9 dkPbijvh63.0-34.0Lutheran HospitalComment on above:Order Comment: Specimen Type: BLOOD SPECIMENOrdering Facility: [facility] Address:[address] [place], [place] [address]Performed By: #### 14377-4 ####TAOISM LABORATORYCLIA [id number] [address] [place], [place] [address] [facility] HOSPITALMCHC (RBC) [Mass/Vol]30.7 g/bAUxazao79.5-36.0Lutheran HospitalComment on above:Order Comment: Specimen Type: BLOOD SPECIMENOrdering Facility: [facility] Address:[address] [place], [place] [address]Performed By: #### 79315-0 ####TAOISM LABORATORYCLIA [id number] [place] [id number] [facility] (RBC) [Entitic vol]87.7 wWQitpqj56.0-100.0Lutheran HospitalComment on above: Order Comment: Specimen Type: BLOOD SPECIMENOrdering Facility: [facility] Address:[address] [place], [place] [address]Performed By: #### 10656-1 ####TAOISM LABORATORYCLIA [id number] [address]ETucleated RBC (Bld) [#/Vol] 10*3/uLNormal<0.01Luthonorhealth scottsdale osborn medical centeran HospitalComment on above:Order Comment: Specimen Type: BLOOD SPECIMENOrdering Facility: [facility] Address:[address] [place], [place] [address]Performed By: #### 70333-7 ####TAOISM LABORATORYCLIA [id number] [address] [place] [address] OF [facility]IAL HOSPITALPlatelet mean volume (Bld) [Entitic vol]11.4 fLNormal 9.0-12.7Lutheran HospitalComment on above:Order Comment: Specimen Type: BLOOD SPECIMENOrdering Facility: [facility] Address:[address] [place], [place] [address]Performed By: #### 91296-5 ####TAOISM LABORATORYCLIA [id number] [address] STATES [facility]ACK HOSPITALPlatelets (Bld) [#/Vol]177 10*3/lHPkcabk475-008Lrielbnr Hospital Comment on above:Order Comment: Specimen Type: BLOOD SPECIMENOrdering Facility: [facility] Address:[address] [place] [address] Performed By: #### 90157-8 ####TAOISM LABORATORYCLIA [id number] [address] STREETRBC (Bld) [#/Vol]3.01 10*6/uLLow4.20-6.00Luthonorhealth scottsdale osborn medical centeran HospitalComment on above:Order Comment: Specimen Type: BLOOD SPECIMENOrdering Facility: [facility] Address:[address] [place], [place] [address]Performed By: #### 48262-4 ####TAOISM LABORATORYCLIA [id number] [address] [place] [address] [facility]IAL HOSPITALWBC (Bld) [#/Vol]6.59 10*3/uLNormal 3.70-11.00[facility] HospitalComment on above:Order Comment: Specimen Type: BLOOD SPECIMENOrdering Facility: [facility] Address:[address] [place] [address]Yaqoocdxa By: #### 27937-7 ####TAOISM LABORATORYCLIA [id number] [address]ETCONSULTon [id number] ID: [id number] Author: King Albrecht PA-C Service: Pain Management Author Type: Physician Respiratory Therapy Manager Type: Consults Filed: 01/02/2022 7:52 AM Note Text: Attestation signed by Naeem Banks MD at 01/02/2022 8:16 AM Agree with above. 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[facility]) Spondylolisthesis, Lumbar Region Status Post Lumbar Spinal Fusion Mixed Hyperlipidemia Bph (Benign Prostatic Hyperplasia) Gerd (Gastroesophageal Reflux Disease) Ckd (Chronic Kidney Disease) Stage 3, Gfr 30-59 Ml/Min ([facility]) Post-Operative Infection Obesity Delirium Back Pain [...] original meaning may be extrapolated by contextual derivationSelect Medical [facility] THERAPY on [id number] NTHNO ID: [id number] Author: Christine Recio OT/L Service: Occupational Therapy Author Type: Occupational Therapist Type: Therapy (PT/OT/Speech/Resp) Filed: 01/02/2022 3:20 PM Note Text: Occupational Therapy Treatment SERVICE DATE: 01/02/2022 SERVICE TIME: 1440 to 1510 ROOM: [id number] Recommended Discharge Disposition: Home OT Anticipated Discharge Needs: Physical Assist at Home;Supervision at Home Physical Assist at Home for: Cleaning;Laundry;Meals;Safety;Transportation;Shopping Supervision at Home due to: Decreased safety [...] shower Laundry: first floor Equipment Owned: Cane;Wheeled Walker;Handstitching Machine Collar Feller;Grab Bars-Shower;ADL Kit;Elevated Toilet Seat;Shower Chair;Elastic Shoe Laces;Hospital Bed (PEr pt he does not have elevated toilet seat, sock aid etc.) Prior Functional Level: Required Assistance Assistance Required With: Cleaning;Laundry;Transportation Prior Functional Level Comments: Patient vague and questionable historian. Has hospital bed but sleeping on sofa with his dog. Unclear using walker as per pt initially for 2 weeks he did not use walker. Per pt spends most of his time laying down. Microwaves meals. Online orders from [facility]. Per pt he puts on his socks [...] activity not attempted Learning/Educational Needs: Discharge Plan;Equipment;Family Education/Training;Functional Activities/Mobility;Plan of Care;Precautions;Rehabilitation Techniques and Procedures;Safety;Self Care Goals for Plan [...] living (ADL);Muscle Weakness (generalized) Interventions Provided: Self Mcc Management (56790) Self Mcc Management (21234) Treatment Minutes: 30 $ Self Mcc Management (81443) Billed Units: 2 units Training AND education provided in: Activity adaption / compensatory strategies, [employer] (more content not included)...[facility] ID: [id number] Author: Nadira Maravilla PT Service: Physical Therapy Author Type: Physical Therapist Type: Therapy (PT/OT/Speech/Resp) Filed: 01/02/2022 2:54 PM Note Text: Physical Therapy Treatment SERVICE DATE: 01/02/2022 SERVICE TIME: 1345 to 1430 ROOM: [place] [address] Recommended Discharge Disposition: Acute Rehab Recommended Discharge [...] Needs: Undetermined Physical Assist at Home for: Cleaning;Laundry;Meals;Stairs;Safety;Self Care;Shopping;Transportation Recommended Discharge Equipment: To Be Determined PT [...] Impairment;Balance Impaired Treatment Interventions: Education;Energy Conservation Training;Joint Mobility;Strengthening;Functional Mobility Training;Balance Training;Neuromuscular Re-education Plan for next [...] shower Laundry: first floor Equipment Owned: Cane;Wheeled Walker;Handstitching Machine Collar Feller;Grab Bars-Shower;ADL Kit;Elevated Toilet Seat;Shower Chair;Elastic Shoe Laces;Hospital Bed (PEr pt he does not have elevated toilet seat, sock aid etc.) Prior Functional Level: Required Assistance Assistance Required With: Cleaning;Laundry;Transportation Prior Functional Level Comments: Patient vague and questionable historian. Has hospital bed but sleeping on sofa with his dog. Unclear using walker as per pt initially for 2 weeks he did not use walker. Per pt spends most of his time laying down. Microwaves meals. Online orders from [facility]. Per pt he puts on his socks [...] Transfer Blank paez i (more content not included)...NormalLutgood samaritan hospital HospitalTHERAPY NT HNO ID: [id number] Author: MYRTLE Lyn Service: Occupational Therapy Author Type: Occupational Therapist Type: Therapy (PT/OT/Speech/Resp) Filed: 01/02/2022 2:12 PM Note Text: OCCUPATIONAL THERAPY MISSED VISIT SERVICE DATE: 01/02/2022 SERVICE TIME: 1411 to 141 ROOM: [place] [address] Patient not seen due to Another service at bedside (PT). Will follow up as able. SIGNATURE: MYRTLE Lyn PATIENT NAME: Mary Jimenez DATE: January 02, 2022 TIME: 2:12 [facility] [id number] HEALTHHNO ID: [id number] Author: RT Ashu(Megan) Service: Radiology Author Type: [...] BY: RT Ashu(R) January 01, 2022 3:04 [facility] metabolic [address] [place] [facility] healthcare corporationon 90-42-0849Opsqj gap [Moles/Vol]8 mmol/LLow9-18Latter-Day HospitalComment on above: Order Comment: Specimen Type: BLOOD SPECIMENOrdering Facility: [facility] Address:[address] [place], [place] [address]Performed By: #### 12850-0 ####TAOISM LABORATORYCLIA [id number] [address] [place], [place] [address] [place] AMERICACalcium [Mass/Vol]8.5 mg/dL Normal8.5-10.2Lutheran HospitalComment on above:Order Comment: Specimen Type: BLOOD SPECIMENOrdering Facility: [facility] Address:[address] [place], [place] [address]Performed By: #### 89725-3 ####TAOISM LABORATORYCLIA [id number] [address] [place], [place] [address] [place] AMERICAChloride [Moles/Vol]99 mmol/QYchdsz30-191Znnkmuxe HospitalComment on above:Order Comment: Specimen Type: BLOOD SPECIMENOrdering Facility: [facility] Address:[address] [place], [place] [address]Performed By: #### 74296-8 ####TAOISM LABORATORYCLIA [id number] [place] [id number] [place] AMERICACO2 [Moles/Vol]29 mmol/FGnwahn14-92Jzoltyvs HospitalComment on above:Order Comment: Specimen Type: BLOOD SPECIMENOrdering Facility: [facility] Address:[address] [place], [place] [address]Performed By: #### 07753-2 ####TAOISM LABORATORYCLIA [id number] [address] [address] [place] AMERICACreatinine [Mass/Vol]1.31 mg/dLHigh 0.73-1.22Lutheran HospitalComment on above:Order Comment: Specimen Type: BLOOD SPECIMENOrdering Facility: [facility] Address:[address] [place] [address]Performed By: #### 64513-2 ####TAOISM LABORATORYCLIA [id number] [address] [place], [place] [address] [place] AMERICAESTIMATED GLOMERULAR FILTRATION RATE62 mL/min/1.73m???Normal>=60 [facility] on above:Order Comment: Specimen Type: BLOOD SPECIMENOrdering Facility: [facility] Address:[address] [place], [place] [address]Result Comment: Estimated Glomerular Filtration Rate (eGFR) is calculated using the 2020 CKD-EPI creatinine equation. This equation utilizes serum creatinine, sex, and age as parameters. The creatinine assay has traceable calibration to isotope dilution-mass spectrometry. Refer to KDIGO guidelines for clinical interpretation. In patients with unstable renal function, e.g. those with acute kidney injury, the eGFR may not accurately reflect actual GFR.Performed By: #### 49573-1 ####TAOISM LABORATORYCLIA [id number] [place] [address] [place] AMERICAGlucose [Mass/Vol]125 mg/eFImzk85-67Gnviuwfp HospitalComup health system on above: Order Comment: Specimen Type: BLOOD SPECIMENOrdering Facility: [facility] Address:[address] [place], [place] [address] Comment: The [place] Diabetes Association (ADA) provides guidance for cutoff values for fast ing glucose and random glucose. The ADA defines [...] Standards of Medical Care in Diabetes 2016, [place] [employer]. Diabetes Care. 2016.39(Suppl 1).Performed By: #### 92983-1 ####TAOISM LABORATORYCLIA [id number] [address] [place] [id number] [place] AMERICAPotassium [Moles/Vol]4.2 mmol/L Normal3.7-5.1Lutheran HospitalComment on above:Order Comment: Specimen Type: BLOOD SPECIMENOrdering Facility: [facility] Address:[address] [place], [place] [address]Performed By: #### 23936-4 ####TAOISM LABORATORYCLIA [id number] [address] [address] [facility] HOSPITALSodium [Moles/Vol]136 mmol/ELilnqr239-456Slqyxqnh HospitalComment on above:Order Comment: Specimen Type: BLOOD SPECIMENOrdering Facility: [facility] Address:[address] [place], [place] [address]Performed By: #### 73353-6 ####TAOISM LABORATORYCLIA [id number] [place] [address] [place] AMERICAUrea nitrogen [Mass/Vol]11 mg/dLNormal9-24[facility] HospitalComment on above:Order Comment: Specimen Type: BLOOD SPECIMENOrdering Facility: [facility] Address:[address] [place], [place] [address]Performed By: #### 66542-6 ####TAOISM LABORATORYCLIA [id number] [place] [id number] [facility] AMERICACBC panel Auto (Bld)on 66-66-3902Klafunyamwt distribution width (RBC) [Ratio]16.5 %High11.5-15.0 [facility] HospitalComment on above:Order Comment: Specimen Type: BLOOD SPECIMENOrdering Facility: [facility] Address:[address] [place], [place] [address]Performed By: #### [id number] #### [place] [address] Rdupqrdgrg (Bld) [Volume fraction]28.1 %Low39.0-51.0Latter-Day HospitalComment on above:Order Comment: Specimen Type: BLOOD SPECIMENOrdering Facility: [facility] Address:[address] [place], [place] [address]Performed By: #### [id number] #### [place] [address] Rbxsepokqg (Bld) [Mass/Vol]8.9 g/dLLow13.0-17.0[facility] Comment on above:Order Comment: Specimen Type: BLOOD SPECIMENOrdering Facility: [facility] Address:[address] [place] [address] Performed By: #### [id number] #### [place] [address] ZHV (RBC) [Entitic mass]28.1 lhHkmcbo42.0-34.0[facility] Comment on above:Order Comment: Specimen Type: BLOOD SPECIMENOrdering Facility: [facility] Address:[address] [place] [address] Performed By: #### [id number] #### [place] [address] FBJR (RBC) [Mass/Vol]31.7 g/hXOacopq96.5-36.0[facility] Comment on above:Order Comment: Specimen Type: BLOOD SPECIMENOrdering Facility: [facility] Address:[address] [place] [address] Performed By: #### [id number] #### [place] [address] EPK (RBC) [Entitic vol]88.6 kQIcxyod04.0-100.0[facility] Comment on above:Order Comment: Specimen Type: BLOOD SPECIMENOrdering Facility: [facility] Address:[address] [place] [address] Performed By: #### [id number] #### [place] [address] Ndewhboej RBC (Bld) [#/Vol]10*3/uLNormal<0.01[facility] Comment on above:Order Comment: Specimen Type: BLOOD SPECIMENOrdering Facility: [facility] Address:[address] [place] [address] Performed By: #### [id number] #### [place] [address] Wwjgaqdv mean volume (Bld) [Entitic vol]11.4 fLNormal9.0-12.7 [facility] HospitalComment on above:Order Comment: Specimen Type: BLOOD SPECIMENOrdering Facility: [facility] Address:[address] [place], [place] [address]Performed By: #### [id number] #### [place] [address] Yljactrln (Bld) [#/Vol]202 10*3/jNSmzczf927-572[facility] Comment on above:Order Comment: Specimen Type: BLOOD SPECIMENOrdering Facility: [facility] Address:[address] [place] [address] Performed By: #### [id number] #### [place] [address] JAJ (Bld) [#/Vol]3.17 10*6/uLLow4.20-6.00[facility] HospitalComment on above:Order Comment: Specimen Type: BLOOD SPECIMENOrdering Facility: [facility] Address:[address] [place], [place] [address]Performed By: #### [id number] #### [place] [address] RCF (Bld) [#/Vol]8.29 10*3/uLNormal3.70-11.00[facility] Comment on above:Order Comment: Specimen Type: BLOOD SPECIMENOrdering Facility: [facility] Address:[address] [place] [address] Performed By: #### [id number] #### [place] [address] Tedevfcdkko distribution width (RBC) [Ratio]16.7 %High11.5-15.0 [facility] HospitalComment on above:Order Comment: Specimen Type: BLOOD SPECIMENOrdering Facility: [facility] Address:[address] [place], [place] [address]Performed By: #### [id number] #### [place] [address] Jzsjekbguo (Bld) [Volume fraction]29.6 %Low39.0-51.0[facility] HospitalComment on above:Order Comment: Specimen Type: BLOOD SPECIMENOrdering Facility: [facility] Address:[address] [place], [place] [address]Performed By: #### [id number] #### [place] [address] Jjcxdgmjmk (Bld) [Mass/Vol]9.3 g/dLLow13.0-17.0[facility] Comment on above:Order Comment: Specimen Type: BLOOD SPECIMENOrdering Facility: [facility] Address:[address] [place] [address] Performed By: #### [id number] #### [place] [address] VQR (RBC) [Entitic mass]27.8 boUibcba68.0-34.0[facility] Comment on above:Order Comment: Specimen Type: BLOOD SPECIMENOrdering Facility: [facility] Address:[address] [place] [address] Performed By: #### [id number] #### [place] [address] NOKH (RBC) [Mass/Vol]31.4 g/vOLrxgzf20.5-36.0[facility] Comment on above:Order Comment: Specimen Type: BLOOD SPECIMENOrdering Facility: [facility] Address:[address] [place] [address] Performed By: #### [id number] #### [place] [address] FZY (RBC) [Entitic vol]88.4 sEEcwlqj59.0-100.0[facility] Comment on above:Order Comment: Specimen Type: BLOOD SPECIMENOrdering Facility: [facility] Address:[address] [place], [place] [address] Performed By: #### [id number] #### [place] [address] Jxcdguhgq RBC (Bld) [#/Vol]10*3/uLNormal<0.01[facility] Comment on above:Order Comment: Specimen Type: BLOOD SPECIMENOrdering Facility: [facility] Address:[address] [place] [address] Performed By: #### [id number] #### [place] [address] Yyplnbkw mean volume (Bld) [Entitic vol]10.6 fLNormal9.0-12.7 [facility] HospitalComment on above:Order Comment: Specimen Type: BLOOD SPECIMENOrdering Facility: [facility] Address:[address] [place], [place] [address]Performed By: #### [id number] #### [place] [address] Navuklhhv (Bld) [#/Vol]206 10*3/uIHzzntf025-211Lvrmkqrs Hospital Comment on above:Order Comment: Specimen Type: BLOOD SPECIMENOrdering Facility: [facility] Address:[address] [place] [address] Performed By: #### [id number] #### [place] [address] WEQ (Bld) [#/Vol]3.35 10*6/uLLow4.20-6.00[facility] HospitalComment on above:Order Comment: Specimen Type: BLOOD SPECIMENOrdering Facility: [facility] Address:[address] [place], [place] [address]Performed By: #### [id number] #### [place] [address] QXP (Bld) [#/Vol]8.74 10*3/uLNormal3.70-11.00[facility] Comment on above:Order Comment: Specimen Type: BLOOD SPECIMENOrdering Facility: [facility] Address:[facility] [place] [address] Performed By: #### [id number] #### [place] [id number] [place] [id number] FMGEBRIyl [id number] ID: [id number] Author: Kumar Mock MD Service: General Internal [...] (COLACE) 100 mg ORAL BID - HYDROmorphone OPERATIONAL METEOROLOGIST 0.5 mg/mL in NaCl 0.9% 100 mL [...] Accident (Cva) Due to Thrombosis ([facility]) Spondylolisthesis, Lumbar Region Status Post Lumbar Spinal Fusion Mixed Hyperlipidemia Bph (Benign Prostatic Hyperplasia) Gerd (Gastroesophageal Reflux Disease) Ckd (Chronic Kidney Disease) Stage 3, Gfr 30-59 Ml/Min ([facility]) Post-Operative Infection Obesity Delirium Back Pain Low Back Pain Weakness of Left Lower Extremity Sleep Apnea Lumbar Pseudoarthrosis Obesity, Class II, Bmi 35-39.9 DATA: Diagnostic tests reviewed for today's visit: Most recent labs: CBC, Coags, BMP, Mg, Phos Recent Labs 01/01/22 0312 01/01/22 0121 WBC 8.29 8.74 HB 8.9* 9.3* HCT 28. (more content not included)...[facility] [id number] PROGHNO ID: [id number] Author: Vivian Redd RN Service: ? Author Type: Advance Clinical Nurse Type: Nursing Progress Note Filed: 01/01/2022 5:04 PM Note Text: Nursing Progress Note Patient Name: Mary Jimenez [facility]518D/[id number]-[id number]- Daily Note: Reviewed isometrics and incentive spirometry [...] information given. This note was completed by: [facility] ClinicTHERAPY NTon 36-45-0750GKTSYFB NTHNO ID: [id number] Author: Nadira Maravilla PT Service: Physical Therapy Author Type: Physical Therapist Type: Therapy (PT/OT/Speech/Resp) Filed: 01/01/2022 2:48 PM Note Text: Physical Therapy Evaluation SERVICE DATE: 01/01/2022 SERVICE TIME: 1300 to 1342 ROOM: [id number] Recommended Discharge Disposition: Acute Rehab Recommended Discharge [...] Needs: Undetermined Physical Assist at Home for: Cleaning;Laundry;Meals;Stairs;Safety;Self Care;Shopping;Transportation Recommended Discharge Equipment: To Be Determined PT [...] Impairment;Balance Impaired Treatment Interventions: Education;Energy Conservation Training;Joint Mobility;Strengthening;Functional Mobility Training;Balance Training;Neuromuscular Re-education Plan for next [...] shower Laundry: first floor Equipment Owned: Cane;Wheeled Walker;Handstitching Machine Collar Feller;Grab Bars-Shower;ADL Kit;Elevated Toilet Seat;Shower Chair;Elastic Shoe Laces;Hospital Bed (PEr pt he does not have elevated toilet seat, sock aid etc.) Prior Functional Level: Required Assistance Assistance Required With: Cleaning;Laundry;Transportation Prior Functional Level Comments: Patient vague and questionable historian. Has hospital bed but sleeping on sofa with his dog. Unclear using walker as per pt initially for 2 weeks he did not use walker. Per pt spends most of his time laying down. Microwaves meals. Online orders from [facility]. Per pt he puts on his socks [...] trunk posture;Michaela decreased;Improper distancing from assistive device;UE weig (more content not included)...[facility]: [id number] Author: Christine Recio OT/L Service: Occupational Therapy Author Type: Occupational Therapist Type: Therapy (PT/OT/Speech/Resp) Filed: 01/01/2022 2:40 PM Note Text: Occupational Therapy Evaluation SERVICE DATE: 01/01/2022 SERVICE TIME: 1404 to 1429 ROOM: [place] [address] Recommended Discharge Disposition: Acute Rehab Recommended Discharge [...] shower Laundry: first floor Equipment Owned: Cane;Wheeled Walker;Handstitching Machine Collar Feller;Grab Bars-Shower;ADL Kit;Elevated Toilet Seat;Shower Chair;Elastic Shoe Laces;Hospital Bed (PEr pt he does not have elevated toilet seat, sock aid etc.) Prior Functional Level: Required Assistance Assistance Required With: Cleaning;Laundry;Transportation Prior Functional Level Comments: Patient vague and questionable historian. Has hospital bed but sleeping on sofa with his dog. Unclear using walker as per pt initially for 2 weeks he did not use walker. Per pt spends most of his time laying down. Microwaves meals. Online orders from [facility]. Per pt he puts on his socks [...] activity not attempted Learning/Educational Needs: Discharge Plan;Equipment;Family Education/Training;Functional Activities/Mobility;Plan of Care;Precautions;Rehabilitation Techniques and Procedures;Safety;Self Care Goals for Plan of Care: Patient /Caregiver Goals: Go Home Goals: Patient will demonstrate progress with self-care, cognitive and/or coping needs identified to allow safe discharge to home with available support and/or physical assistance. Progress Toward Goals: Progressing as expected Rehab Potential: Good (more content not included)...[facility] [id number] Non-Invasive Vascular Laboratory [facility] Lower Extremity Venous Duplex Bilateral/Complete Date of service/time: 01/01/2022 9:53:16 AM Name: MR. MARY JIMNEEZ Date of : 1960 Age: 61 years [...] RDCS Ordering physician: CHRISTINE HATFIELD Interpreting physician: Steven Aleman MD, CHANEL Final CC [employer] Medical Image : [id number] See Link below for [facility] HospitalXR LUMBAR 2V AP/LATon 01-01-2022 XR LUMBAR 2V AP/LAT* * *Final Report* * * DATE OF [...] in appearance. IMPRESSION: Postsurgical change. No complication. Reactor Operator: OLI Transcribe Date/Time: Jan 01 2022 3:32P Dictated by : DIONTE MANNING MD This examination was interpreted and the report reviewed and electronically signed by: DIONTE MANNING MD on Jan 01 2022 3:33PM EST [id number] scottsdale osborn medical centeran HospitalANES POSTPROC EVALon [id number] POSTPROC EVALHNO ID: [id number] Author: David Og MD Service: Anesthesiology Author Type: Anesthesiologist Type: Anesthesia Postprocedure Evaluation Filed: 12/31/2021 4:56 PM Note Text: POST ANESTHESIA EVALUATION NOTE : 1960 Procedure Summary Date: 12/31/21 Room / Location: DENY OR08 / DENY OR Anesthesia Start: 1105 [...] December 31, 2021 TIME: 4:56 PM CSN: [id number]. Vincent Hospital PRE-OPon [id number] PRE-OPHNO ID: [id number] Author: David Og MD Service: Anesthesiology Author [...] 3, GFR 30-59 ml/min ([facility]) NEURO-PSYCH (+) Cerebrovascular accident (CVA) due to thrombosis ([facility]) (+) Intractable chronic migraine without aura PULMONARY [...] 90 mg total d (more content not included)...[facility] NOT [id number] OP [facility] ID: [id number] Author: Loyda Steele MD Service: Neurosurgery Author Type: Physician Type: Brief Op Note Filed: 01/02/2022 8:11 AM Note Text: BRIEF OPERATIVE / PROCEDURE NOTE LOG ID: [id number] SURGERY/PROCEDURE DATE: 12/31/2021 INCISION/PROCEDURE START TIME: 11:35 AM INCISION CLOSE/PROCEDURE END TIME: 2:55 PM SURGEON(S)/PROCEDURALIST(S) AND WINTER INTERN(S): Surgeon(s) and Role: * Loyda Steele MD [...] Jimenez DATE: December 31, 2021 TIME: 2:45 [facility] [id number] PROGHNO ID: [id number] Author: Shelly Devries RN Service: Nursing Author Type: Registered Nurse Type: Nursing Progress Note Filed: 12/31/2021 6:54 PM Note Text: Nursing Progress Note Patient Name: Mary Jimenez Patient Location: [address]/[place] [address] Transfer Note: Patient transferred into room/unit 518-1 in stable condition. Actions taken: Patient and family oriented to 5D unit policies and procedures. Educated on falls risks, falls precautions, and use of call crouch prior to getting OOB. Patient resting in bed. Call light within reach. All needs met at this time. This note was completed by: Shelly CisnerosOhio State Health Author: Caroline Aleman RN Service: Nursing Author Type: Registered Nurse Type: Nursing Progress Note Filed: 12/31/2021 9:00 AM Note Text: Nursing Progress Note Patient Name: Mary Jimenez Patient Location: -OPERATING ROOM POOL/-OR POOL Daily Note:family wishes to speak to dr steele prior to surgery. Dr. Habboub notified via text. This note was completed by: Caroline Villegas [facility] Community HospitalOPERATIVE NOon [id number] NOHNO ID: [id number] Author: Loyda Steele MD Service: Neurosurgery Author Type: Physician Type: Operative Report Filed: 01/02/2022 8:23 AM Note Text: OPERATIVE/PROCEDURE REPORT LOG ID: [id number] SURGERY/PROCEDURE DATE: 12/31/2021 INCISION/PROCEDURE START TIME: 11:35 AM INCISION CLOSE/PROCEDURE END TIME: 2:55 PM SURGEON(S)/PROCEDURALIST(S) AND WINTER INTERN(S): Surgeon(s) and Role: * Loyda Steele MD [...] Implant Name Type Inv. Item Serial No. Central Office Installer Lot No. LRB No. Used Action GRAFT BONE SUB 5CC DBM INERT REVERSE PHASE CARRIER GEL SYNTHETIC OSTEOSPARX - [id number] Bone GRAFT BONE SUB 5CC DBM INERT REVERSE PHASE CARRIER GEL SYNTHETIC OSTEOSPARX [id number] [employer] [facility] [id number] N/A 1 Implanted SUBSTITUTE MASTERGRAFT BONE GRAFT MATRIX BLOCK EXTENSION VOID FILLER 5ML - [id number] Graft SUBSTITUTE MASTERGRAFT BONE GRAFT MATRIX BLOCK EXTENSION VOID FILLER 5ML [employer] SOFAMOR DANEK [id number] N/A 1 Implanted GRAFT INFUSE 14MM SMALL BOVINE COLLAGEN RHBMP-2 23MM BONE ABSORBABLE SPONGE - [id number] Bone GRAFT INFUSE 14MM SMALL BOVINE COLLAGEN RHBMP-2 23MM BONE ABSORBABLE SPONGE [employer] SOFAMOR DANEK [id number] N/A 1 Implanted DRAINS: Subfascial drain COMPLICATIONS: None PARTICIPATION IN SURGERY/PROCEDURE: Loyda Steele, Gianluca Aguero and Monique Horta performed the opening, decompression, hardware placement and closure together. SIGNATURE: Loyda Steele MD PATIENT NAME: Mary Jimenez DATE: December 31, 2021 TIME: 2:34 PMNormalLutgood samaritan hospital HospitalSURGICAL PATHOLOGYon [id number] REPORT NormalLatter-Day HospitalComment on above:Order Comment: Specimen Type: DEVICE SPECIMENOrdering Facility: [facility] Address: [address] [place] [id number] Comment: Surgical Pathology Report Case: [id number] Authorizing Provider: Loyda Steele MD Collected: 12/31/2021 02:35 PM Ordering Location: [facility] Received: 12/31/2021 07:43 PM Operating Room Pathologist: Amanda Coleman MD Specimen: HARDWARE, hardware removed from spinePerformed By: #### S ####[facility] LABCLIA [id number] [address] Comment on above:Order Comment: Specimen Type: DEVICE SPECIMENOrdering Facility: [facility] Address: [address] [place] [address] Result Comment: A. Spine, hardware removal: - Surgical rods, screws and screw caps with no soft tissue present (gross examination only) POLINA/LINH 01/01/22 Performed By: #### S ####[facility] LABCLIA [id number] [address]ETFINKY PERFORMING LAB [facility] Edwin ShawComment on above:Order Comment: Specimen Type: DEVICE SPECIMENOrdering Facility: [facility] Address: [address] [place], [place] [address]Result Comment: Diagnostic interpretation performed at [facility], [address] [place] [address] CLIA# [id number] Hr Associate: Krishna Serrato M.D.Performed By: #### S ####[facility] LABCLIA [id number] [address]ETGROSS DESCRIPTIONA. HARDWARE.[facility], [facility] ShawComment on above:Order Comment: Specimen Type: DEVICE SPECIMENOrdering Facility: [facility] Address: [address] [place], [place] [address]Result Comment: Received in formalin labeled hardware removed from spine are 2 curved rods measuring 4.9 and 7.2 cm in length, 2 screws with connector ends each measuring 6.8 cm in length, and 5 screw caps measuring 0.5 cm in length and 1.0 cm in diameter. No soft tissue is present. No sections are submitted. The specimen was shown to Dr. Coleman. Gross examination performed at [facility], [facility] [place] [address] [facility] 01/01/22 1:41 PMPerformed By: #### S ####[facility] LABCLIA [id number] [facility] CUDAHYDESK [id number] VILLE [id number] [facility]ITALXR LUMBAR 2V AP/LATon 00-13-2395UU LUMBAR 2V AP/LAT* * *Final Report* * * DATE OF [...] fracture. IMPRESSION: Postoperative changes as described above Reactor Operator: PSCB Transcribe Date/Time: Dec 31 2021 2:25P Dictated by : ALISE RANDLE MD This examination was interpreted and the report reviewed and electronically signed by: ALISE RANDLE MD on Dec 31 2021 2:27PM EST [id number] Timpanogos Regional Hospital reactive protein [Mass/volume] in Serum or PlasmaOrdered By: Yobany Nelson on 87-91-0603RQK [Mass/Vol]0.8 mg/dL 0.0-1.0Berger HospitalBasi metabolic 2000 panelon 12-17-2021 Anion gap [Moles/Vol]14 mmol/L9 - 18 mmol/LCleveland ClinicCalcium [Mass/Vol]9.8 mg/dL8.5 - 10.2 mg/dLBarnesville HospitalChloride [Moles/Vol]100 mmol/L97 - 105 mmol/LCleveland ClinicCO2 [Moles/Vol]25 mmol/L22 - 30 mmol/LCleveland Clinic Creatinine [Mass/Vol]1.46 mg/dLHigh0.73 - 1.22 mg/dLBarnesville HospitalEstimated Glomerular Filtration Rate54 mL/min/1.73mLow>=60 mL/min/1.73mCleveland [facility] Glucose [Mass/Vol]100 mg/jBLevd40 - 99 mg/dLBarnesville HospitalPotassium [Moles/Vol]4.9 mmol/L3.7 - 5.1 mmol/LCleveland ClinicSodium [Moles/Vol]139 mmol/L136 - 144 mmol/LCleveland ClinicUrea nitrogen [Mass/Vol]23 mg/dL9 - 24 mg/dLBarnesville HospitalCBC W Auto Differential panel (Bld)on 28-52-6036Lhp Immature Gran<0.03<0.10 k/uLBarnesville HospitalBasophils (Bld) [#/Vol]0.03 10*3/uL <0.11 k/uLBarnesville HospitalBasophils/100 WBC (Bld)0.5 %[facility] Differential cell count method Nom (Bld)AutoCleveland ClinicEosinophils (Bld) [#/Vol]0.21 10*3/uL<0.46 k/uLBarnesville HospitalEosinophils/100 WBC (Bld)3.3 % Barnesville HospitalErythrocyte distribution width (RBC) [Ratio]15.3 %High11.5 - 15.0 %Barnesville HospitalHematocrit (Bld) [Volume fraction]40.1 %39.0 - 51.0 % [facility]ville HospitalHemoglobin (Bld) [Mass/Vol]13.0 g/dL13.0 - 17.0 g/dLBarnesville HospitalImmature Gran %0.3 %Barnesville HospitalLymphocytes (Bld) [#/Vol]1.31 10*3/uL 1.00 - 4.00 k/uLBarnesville HospitalLymphocytes/100 WBC (Bld)20.8 %[facility] MCH (RBC) [Entitic mass]26.9 pg26.0 - 34.0 pgClevelChippewa City Montevideo HospitalHC (RBC) [Mass/Vol]32.4 g/dL30.5 - 36.0 g/dLOhio State Harding HospitalV (RBC) [Entitic vol]83.0 fL80.0 - 100.0 fLCleveland ClinicMonocytes (Bld) [#/Vol]0.68 10*3/uL<0.87 k/uL Barnesville HospitalMonocytes/100 WBC (Bld)10.8 %Barnesville HospitalNeutrophils (Bld) [#/Vol]4.04 10*3/uL1.45 - 7.50 k/uLBarnesville HospitalNeutrophils/100 WBC (Bld)64.3 %Barnesville HospitalNucleated RBC (Bld) [#/Vol]10*3/uL<0.01 k/uLBarnesville Hospital Nucleated RBC/100 WBC (Bld) [Ratio]0.0 /100 WBCBarnesville HospitalPlatelet mean volume (Bld) [Entitic vol]11.0 fL9.0 - 12.7 fLClevelunc health johnston clayton ClinicPlatelets (Bld) [#/Vol]181 10*3/uL150 - 400 k/uLBarnesville HospitalRBC (Bld) [#/Vol]4.83 10*6/uL 4.20 - 6.00 m/uLBarnesville HospitalWBC (Bld) [#/Vol]6.29 10*3/uL3.70 - 11.00 k/uL Barnesville HospitalC reactive protein [Mass/volume] in Serum or PlasmaOrdered By: Yobany Nelson on 52-19-2962WHG [Mass/Vol]0.6 mg/dL0.0-1.0Berger HospitalC reactive protein [Mass/volume] in Serum or PlasmaOrdered By: Yobany Nelson on 79-56-8231HVP [Mass/Vol]1.1 mg/dL0.0-1.0Berger HospitalCHEMISTRYOrdered By: SYSTEM SYSTEM on 54-06-4622Kuuoxqpmdjye Screen method >1000 ng/mL Ql (U)Negative (11/20/21 7:42 PM)NormalNegativeFTMC RemisolBarbiturates Screen Ql (U)Negative (11/20/21 7:42 PM)NormalNegativeFTMC RemisolBenzodiazepines Ql (U)Negative (11/20/21 7:42 PM)NormalNegativeFTMC RemisolCocaine Ql (U)Negative (11/20/21 7:42 PM)NormalNegativeFTMC RemisolOpiates Screen Ql (U)Positive 1 *ABN* (11/20/21 7:42 PM)Invalid Interpretation CodeNegativeFTMC RemisolComment on above:Result Comment: Critical Result verified by repeat analysis\No confirmation requested by Physican\Unconfirmed by alternate method\Critical Result UD_OPIA:POS Called to CAITLYN MEDRANO AT by JATINDER BARAHONA And Read Back For Confirmation at: 11/20/2021 21:31:35Phencyclidine Screen method >25 ng/mL Ql (U)Negative (11/20/21 7:42 PM)NormalNegativeFTMC RemisolTetrahydrocannabinol Screen method >50 ng/mL Ql (U)Negative (11/20/21 7:42 PM)NormalNegativeFTMC RemisolAlbumin [Mass/Vol]3.9 g/dLNormal3.3 - 5.0 gm/dLFTMC RemisolAlbumin/Globulin [Mass ratio]1.2 {ratio}Normal1.1 - 2.2 [facility] RemisolALP [Catalytic activity/Vol]75 [iU]/oDkogwx44 - 98 Int._Unit/LFTMC RemisolALT No additional P-5'-P [Catalytic activity/Vol]17 [iU]/dNormal6 - 46 Int._Unit/LFTMC RemisolAnion gap [Moles/Vol]10 mmol/LNormal6 - 16 mEq/LFTMC RemisolAST [Catalytic activity/Vol]17 [iU]/dNormal5 - 43 Int._Unit/LFTMC Remisol Bilirubin [Mass/Vol]0.8 mg/dLNormal0.0 - 1.1 mg/dLFTMC RemisolBilirubin.direct [Mass/Vol]0.2 mg/dLNormal0.1 - 0.4 mg/dLFTMC RemisolBilirubin.indirect [Mass or moles/Vol]0.6 mg/dLNormal0.1 - 0.9 mg/dLFTMC RemisolCalcium [Mass/Vol]8.9 mg/dL Normal8.9 - 11.1 mg/dLFT RemisolChloride [Moles/Vol]98 mmol/XOgo318 - 111 mmol/LFTMC RemisolCO2 [Moles/Vol]31 mmol/ZTjmnpx95 - 31 mmol/LFTMC Remisol Creatinine [Mass/Vol]1.7 mg/dLHigh0.5 - 1.3 mg/dLFT RemisolCRP [Mass/Vol]22.8 mg/dLHigh<=1.9mg/dLFT RemisolGFR/1.73 sq M.predicted among blacks MDRD (S/P/Bld) [Vol rate/Area]50 mL/min/1.73 m2Low>=59mL/min/1.73 m2FT Chem S GFR/1.73 sq M.predicted among non-blacks MDRD (S/P/Bld) [Vol rate/Area]41 mL/min/1.73 m2Low>=59mL/min/1.73 m2[facility] Chem SGlobulin (S) [Mass/Vol]3.4 g/dL Normal1.4 - 4.0 gm/dLFT RemisolGlucose [Mass/Vol]61 mg/zCPwbbhk95 - 199 mg/dL [facility] RemisolLactate [Mass/Vol]1.0 mmol/LNormal0.5 - 2.2 mmol/LFTMC RemisolLipase [Catalytic activity/Vol]25 U/FEsqizc09 - 58 unit/LFTMC RemisolPotassium [Moles/Vol]3.7 mmol/LNormal3.5 - 5.3 mmol/LFTMC RemisolProtein [Mass/Vol]7.3 g/dLNormal6.0 - 7.8 gm/dLFT RemisolSodium [Moles/Vol]135 mmol/YYeuexv260 - 145 mmol/LFTMC RemisolUrea nitrogen [Mass/Vol]17 mg/dLNormal5 - 21 mg/dLFTMC RemisolUrea nitrogen/Creatinine [Mass ratio]10 mg/sgXihnkw21 - 20FT Remisol COAGULATIONOrdered By: Jamie Branham on 70-93-6447jUIQ Coag (PPP) [Time]45.1 s High25.1 - 36.5 second(s)[facility] Auto CoagINR Coag (PPP) [Relative time]1.2 {INR} Invalid Interpretation CodeFTMC Auto CoagPT Coag (PPP) [Time]14.2 sHigh10.2 - 12.9 second(s)[facility] Auto CoagHEMATOLOGYOrdered By: SYSTEM SYSTEM on 11-20-2021 Basophils/100 WBC (Bld)0.3 %Normal0.0 - 2.0 %[facility] HemeAutoSSBasophils/Leukocytes Auto (Bld) [Pure # fraction]0.0 E9/LNormal0.0 - 0.2 E9/LFTMC HemeAutoSS Eosinophils/100 WBC (Bld)0.5 %Normal0.0 - 8.0 %[facility] HemeAutoSS Eosinophils/Leukocytes Auto (Bld) [Pure # fraction]0.1 E9/LNormal0.0 - 0.5 E9/L [facility] HemeAutoSSLymphocytes/100 WBC (Bld)7.2 %Low14.0 - 50.0 %[facility] HemeAutoSS Lymphocytes/Leukocytes Auto (Bld) [Pure # fraction]0.9 E9/LLow1.0 - 4.0 E9/LFTMC HemeAutoSSMonocytes/100 WBC (Bld)15.7 %High4.0 - 14.0 %[facility] HemeAutoSS Monocytes/Leukocytes Auto (Bld) [Pure # fraction]2.1 E9/LHigh0.2 - 1.0 E9/LFTMC HemeAutoSSNeutrophils/100 WBC (Bld)76.3 %High36.0 - 75.0 %[facility] HemeAutoSS Neutrophils/Leukocytes Auto (Bld) [Pure # fraction]10.0 E9/LHigh2.0 - 7.5 E9/L [facility] HemeAutoSSHEMATOLOGYOrdered By: July Ellis on 32-43-8230Fiorbehanuq distribution width (RBC) [Ratio]16.1 %High10.9 - 14.2 %[facility] HemeAutoSSHematocrit (Bld) [Volume fraction]37.8 %Iplplc91.7 - 49.0 %[facility] HemeAutoSSHemoglobin (Bld) [Mass/Vol]12.4 g/dLLow13.5 - 17.5 gm/dLBONE AND JOINT [facility]PITAL [facility] HemeAutoSSMCH (RBC) [Entitic mass] 26.9 pgLow27.0 - 34.0 pgFOKLAHOMA STATE UNIVERSITY [facility] HemeAutoSSMCHC (RBC) [Mass/Vol]32.7 g/zZOioszx85.4 - 36.0 gm/dLBONE AND JO[facility] [place] HemeAutoSSMCV (RBC) [Entitic vol]82.3 aJNksjqi83.0 - 100.0 fL [facility] HemeAutoSSPlatelet mean volume (Bld) [Entitic vol]8.6 fLNormal6.4 - 10.8 fL [facility] HemeAutoSSPlatelets (Bld) [#/Vol]219.0 E9/UWwqrli691.0 - 500.0 E9/LFTMC HemeAutoSSRBC (Bld) [#/Vol]4.6 E12/LNormal4.3 - 5.9 E12/LFTMC HemeAutoSSSed Rate Lqzssfqck52 mm/hHigh0 - 19 mm/hrBONE AND [facility] HemeAutoSSWBC corrected for nucl RBC Auto (Bld) [#/Vol]13.1 E9/LHigh4.0 - 11.0 E9/LFTMC HemeAutoSSMICRO OTHER TESTSOrdered By: Angelina Barahona on 04-51-9993Fefgt COV Int NEG CtlPass (11/20/21 10:51 PM)NormalB[facility] AND JO[facility] Man SeroRapid COV Int POS CtlPass (11/20/21 10:51 PM)NormalB[facility] AND JO[facility] [place] Man SeroSARS-CoV+SARS-CoV-2 (COVID-19) Ag IA.rapid Ql (Resp)Not Detected (11/20/21 10:51 PM)NormalNot DetectedBONE AND JOINT [facility]OSPITAL [facility] [place] Man SeroNo Panel Informationon 71-62-1719Jvxfy Culture CharcoalNo growth at 1 day. Final to follow at 7 days. [facility]aritan HospitalBlood Culture CharcoalNo growth at 1 day. Final to follow at 7 days.[facility]aritan HospitalURINALYSISOrdered By: Jamie Branham on 14-80-6264Vgdqlmmc LM Ql (Urine sed)Trace /HPFNormalTrace/HPFBONE AND [facility] [place] [facility] UA Auto SS Bilirubin Ql (U)Negative (11/20/21 7:42 PM)NormalNegativeB[facility] AND [facility] [place] [facility] UA Auto SSClarity (U)Clear (11/20/21 7:42 PM)NormalClearFOKLAHOMA STATE UNIVERSITY [facility] UA Auto SSColor (U)Yellow (11/20/21 7:42 PM)NormalYellowBONE AND JOINT HOSPITAL [facility] [place] UA Auto SSCrystals LM Ql (Urine sed)Present (11/20/21 7:42 PM)NormalBONE AND JOINT [facility]ITAL [facility] [place] UA Auto SSEpithelial cells.squamous LM.HPF (Urine sed) [#/Area]0-2 /HPFNormal0-2/HPFBONE AND JOINT [facility]OSPITAL [facility] [place] UA Auto SSGlucose Test strip (U) [Mass/Vol]Negative (11/20/21 7:42 PM)NormalNegativeBONE AND [facility] UA Auto SSHemoglobin Ql (U)Negative (11/20/21 7:42 PM)NormalNegativeB[facility] AND [facility] [place] UA Auto SSKetones (U) [Mass/Vol]Negative (11/20/21 7:42 PM)NormalNegativeBONE AND [facility] [place] UA Auto SSLithium.plasma/[place].RBC (Bld) [Mass ratio]0-3 /HPFNormal0-3/HPFBONE AND JOINT [facility]PITAL [facility] [place] UA Auto SSNitrite Ql (U)Negative (11/20/21 7:42 PM)NormalNegativeBONE AND [facility] [place] [facility] UA Auto SSpH (U)7.0 *NA* (11/20/21 7:42 PM)Invalid Interpretation Code5.0 - 9.0[facility] UA Auto SSProtein (U) [Mass/Vol]Negative (11/20/21 7:42 PM)NormalNegativeBONE AND JOINT [facility] [place] UA Auto SSSpecific gravity (U) [Rel density] <=1.005 *NA* (11/20/21 7:42 PM)Invalid Interpretation Code1.005 - 1.030[facility] UA Auto SSUA Spec DescClean Catch (11/20/21 7:42 PM)NormalBONE AND JOINT [facility]OSPITAL [facility] [place] UA Auto SSUrobilinogen Qn (U)0.2287358 {Cristina'U}/dLNormal0.0 - 1.0 EU/dLBONE AND JOINT [facility]OSPITAL [facility] [place] UA Auto SSWBC Auto Ql (U)Negative (11/20/21 7:42 PM)NormalNegativeBONE AND JOINT [facility]PITAL [facility] [place] [facility] UA Auto SSWBC LM.HPF (Urine sed) [#/Area]0-5 /HPFNormal0-5/HPFFTMC UA Auto SSBasic Metabolic Panlon 75-73-7665Jxihk gap [Moles/Vol]6 mmol/LLow9-18Latter-Day HospitalComment on above:Performed By: #### VIKASH, BMP ####[place] [id number] [Mass/Vol]8.6 mg/dLNormal8.5-10.2[facility]uthSt. [facility] Comment on above:Performed By: #### VIKASH, BMP ####[place] [id number] [Moles/Vol]100 mmol/LNormal 97-105[facility] HospitalComment on above:Performed By: #### VIKASH, BMP ####[place] [id number] [Moles/Vol]28 mmol/MJotqju86-43Xrhjtqcf HospitalComment on above:Performed By: #### VIKASH, BMP ####[place] [id number] [Mass/Vol]1.27 mg/dLHigh0.73-1.22[facility] Comment on above:Performed By: #### VIKASH, BMP ####[place] [id number]-African Amer.>60Normal>59Luther HospitalComment on above:Performed By: #### VIKASH, BMP ####[place] [id number]-All Other Races 57 .Low>59[facility]utheran HospitalComment on above:Result Comment: eGFR (Estimated GFR) Units of measure: [...] visit the National Kidney Foundation website at kidney.org/professiona ls/kdoqi/gfr_calculator.Performed By: #### VIKASH, BMP ####[place] [id number] [place] [id number] [Mass/Vol]103 mg/dLHigh 74-99[facility] HospitalComment on above:Performed By: #### VIKASH, BMP ####[place] [id number] Potassium [Moles/Vol]4.6 mmol/LNormal3.7-5.1[facility] HospitalComment on above: Performed By: #### OLVINDIF, BMP ####[place] [id number] [Moles/Vol]134 mmol/CIkn953-203 [facility] HospitalComment on above:Performed By: #### OLVINDIF, BMP ####[place] [id number] nitrogen [Mass/Vol]14 mg/dLNormal9-24[facility] HospitalComment on above:Performed By: #### CBCDIF, BMP ####[place] [id number]GESt[facility] [id number] MANAGEMHNO ID: [id number] Author: Gracia Lr RN Service: ? Author Type: Registered Nurse Type: Care Mgt Progress Note Filed: 08/20/2021 9:25 AM Note Text: CARE MANAGEMENT DISCHARGE NOTE SERVICE DATE: 08/20/2021 SERVICE TIME: 9:24 am LOS: 4 days Admission Date: 08/16/2021 DISCHARGE ARRANGEMENT (list agency and phone number) Discharge Arrangement: Home with Home Health (for PT) Provider Name: [facility] HANDOFF COMMUNICATION: Handoff to: (see summary of care) TRANSPORTATION ARRANGEMENTS: Transportation Arrangements: Car (with family member) ADDITIONAL CONTACT RESOURCES: Appointments for the Next 45 Days Saturday August 28, 2021 ?1:20 PM Post Op with Loyda Steele MD Neurosurgery ([facility]) [address] [facility] [address] Discharge Information Row Name Admission (Current) from 08/16/[address] [facility] Health Care Agency [place] [facility] Needs Prior to Discharge: Ready for Discharge SIGNATURE: Gracia Lr RN PATIENT NAME: Mary Jimenez DATE: August 20, 2021 TIME: 9:24 AM PAGER/CONTACT #: [phone] HospitalCB and Differentialon [id number] Baso<0.03Normal<0.11[facility]uther[facility] HospitalComment on above:Performed By: #### CBCDIF, BMP ####[place] [id number] Mono0.87 k/uLHigh<0.87[facility] Comment on above:Performed By: #### CBCDIF, BMP ####[place] [id number] Neut4.76 k/uLNormal1.45-7.50 [facility] HospitalComment on above:Performed By: #### CBCDIF, BMP ####[place] [id number] nRBC<0.01 Normal<0.01[facility] HospitalComment on above:Performed By: #### CBCDIF, BMP ####[place] [id number] Basophils/100 WBC (Bld)0.3 %NormalLutheran HospitalComment on above:Performed By: #### CBCDIF, BMP ####[place] [id number] DiffNormalLutheran HospitalComment on above:Performed By: #### CBCDIF, BMP ####[place] [id number]s (Bld) [#/Vol]0.37 10*3/uLNormal<0.46[facility] HospitalComment on above:Performed By: #### CBCDIF, BMP ####[place] [id number]s/100 WBC (Bld)5.5 %NormalLutgood samaritan hospital HospitalComment on above:Performed By: #### CBCDIF, BMP ####[place] [id number] Erythrocyte distribution width (RBC) [Ratio]12.1 %Fqsnma14.5-15.0[facility] HospitalComment on above:Performed By: #### CBCDIF, BMP ####[place] [id number] (Bld) [Volume fraction]28.8 %Low39.0-51.0[facility] HospitalComment on above:Performed By: #### CBCDIF, BMP ####[place] [id number] (Bld) [Mass/Vol]9.5 g/dLLow13.0-17.0[facility] HospitalComment on above:Performed By: #### CBCDIF, BMP ####[place] [id number]s (Bld) [#/Vol]0.70 10*3/uLLow1.00-4.00[facility] HospitalComment on above:Performed By: #### CBCDIF, BMP ####[place] [id number]s/100 WBC (Bld)10.4 %NormalLutheran HospitalComment on above:Performed By: #### CBCABBIE BMP ####[place] [address]13216-363-2018MCH32.2 bJFbnlon55.0-34.0[facility] Comment on above:Performed By: #### VIKASH, BMP ####[place] [id number] (RBC) [Mass/Vol]33.0 g/dLNormal 30.5-36.0[facility]villean HospitalComment on above:Performed By: #### VIKASH, BMP ####[place] [id number] (RBC) [Entitic vol]97.6 aJBivxhe12.0-100.0[facility] HospitalComment on above: Performed By: #### CBCABBIE, BMP ####[place] [id number]/100 WBC (Bld)12.9 %NormalLatter-Day HospitalComment on above:Performed By: #### CBCABBIE, BMP ####[place] [id number]/100 WBC (Bld)70.9 %NormalBlountvillean HospitalComment on above:Performed By: #### CBCABBIE, BMP ####[place] [id number] NRBCs0.0 /100 OOELzynqn1Lhyyckzz HospitalComment on above:Performed By: #### CBCDIRakesh, BMP ####[place] [id number] mean volume (Bld) [Entitic vol]11.3 fLNormal9.0-12.7 [facility] HospitalComment on above:Performed By: #### CBCDIF, BMP ####[place] [id number] (Bld) [#/Vol]167 10*3/xMJbiqrc774-297Pczmsgtl HospitalComment on above:Performed By: #### CBCDIF, BMP ####[address] [phone] (Bld) [#/Vol]2.95 10*6/uLLow4.20-6.00[facility] Hospital Comment on above:Performed By: #### CBCDIF, BMP ####[address] [phone] (Bld) [#/Vol]6.72 10*3/uLNormal 3.70-11.00[facility] HospitalComment on above:Performed By: #### CBCDIF, BMP ####[address] [phone] [id number] ID: [id number] Author: Loyda Steele MD Service: Neurosurgery Author [...] without aura Chronic pain syndrome Opioid dependence ([facility]) Primary hypertension Cerebrovascular accident (CVA) due to thrombosis ([facility]) Spondylolisthesis, lumbar region Mixed hyperlipidemia BPH (benign [...] you become constipated, you may use any rorx-pfl-gklafwd treatment such as Milk of Magnesia, Sennakot, [...] medication (see prescription) You should use an ybgt-hrq-ibithyt stool softener (Docusate sodium) and/or a fiber [...] Out FOLLOW-UP APPOINTMENTS ALREADY SCHEDULED WITH A [facility] PROVIDER: Future Appointments Date Time Provider Department Center 08/28/2021 1:20 PM Loyda Steele MD [facility] ALLERGIES Allergen Reactions - Penicillins Anaphylaxis - Latex Rash You may continue taking aspirin on 08/21/21 You may continue taking Plavix on 08/26/21 DISCHARGE MEDICATION: Current Discharge Medication List START taking these medications (more content not included)...[facility] [id number] PROGHNO ID: [id number] Author: Vivian Redd RN Service: ? Author Type: Advance Clinical Nurse Type: Nursing Progress Note Filed: 08/20/2021 11:13 AM Note Text: Nursing Progress Note Patient Name: Mary Jimenez Patient Location: [address]/[id number] Daily Note: Reviewed discharge instructions for spine [...] the incision. This note was completed by: [facility] ID: [id number] Author: Vibha Billings RN Service: ? Author Type: Registered Nurse Type: Nursing Progress Note Filed: 08/20/2021 9:51 AM Note Text: Nursing Progress Note Patient Name: Mary Jimenez Patient Location: [facility]517/[id number] Assumed care of patient. Report received from Ramandeep Bonilla RN. Patient resting comfortably in bed at this time, pain under control, VSS. Call light within reach and working. All needs met at this time. This note was completed by: Vibha BillingsSt. [facility] [id number] NTHNO ID: [id number] Author: MEMO Whitt/Ida Service: Occupational Therapy Author Type: Occupational Therapist Type: Therapy (PT/OT/Speech/Resp) Filed: 08/20/2021 10:05 AM Note Text: OCCUPATIONAL THERAPY MISSED VISIT SERVICE DATE: 08/20/2021 SERVICE TIME: 1000 to 1000 ROOM: [place] [address] Patient not seen due to Declined. Pt dressed upon arrival and stated, this is my fourth spine surgery, I know what I'm doing by now. Sister at bedside, reviewed spine precautions and answered all questions and concerns. Pt is safe to d/c home via family car from an OT standpoint. SIGNATURE: MEMO Whitt/Ida PATIENT NAME: Mary Jimenez DATE: August 20, 2021 TIME: 10:03 [facility] [id number] HEALTHHNO ID: [id number] Author: RT Disha(R) Service: Radiology Author Type: [...] BY: RT Disha(R) August 19, 2021 10:39 [facility] HospitalBasi Metabolic Panlon 06-74-3556Tiomk gap [Moles/Vol]10 mmol/LNormal9-18[facility]utheran HospitalComment on above:Performed By: #### CBCDIF, BMP ####[address] [phone] [Mass/Vol]8.4 mg/dLLow8.5-10.2 [facility] HospitalComment on above:Performed By: #### VIKASH, BMP ####[place] [id number] [Moles/Vol] 98 mmol/RNvtxxv95-878Rpqmoffs HospitalComment on above:Performed By: #### VIKASH, BMP ####[place] [id number] [Moles/Vol]26 mmol/FJrxdqx18-72Ekbvgfbn HospitalComment on above:Performed By: #### VIKASH, BMP ####[place] [id number] [Mass/Vol]1.40 mg/dLHigh 0.73-1.22[facility] HospitalComment on above:Performed By: #### VIKASH, BMP ####[place] [id number]- Amer.>60Normal>59Lutheran HospitalComment on above:Performed By: #### VIKASH, BMP ####[place] [id number]-All Other Races51 .Low>59Lutheran HospitalComment on above:Result Comment: eGFR (Estimated GFR) Units of measure: [...] visit the National Kidney Foundation website at kidney.org/professiona ls/kdoqi/gfr_calculator.Performed By: #### VIKASH, BMP ####[place] [id number] [Mass/Vol]109 mg/dLHigh 74-99[facility] HospitalComment on above:Performed By: #### DAMIENF, BMP ####[place] [id number] Potassium [Moles/Vol]3.9 mmol/LNormal3.7-5.1[facility] HospitalComment on above: Performed By: #### VIKASH, BMP ####[place] [id number] [Moles/Vol]134 mmol/HOfm666-127 [facility] HospitalComment on above:Performed By: #### VIKASH, BMP ####[place] [id number] nitrogen [Mass/Vol]16 mg/dLNormal9-24[facility] HospitalComment on above:Performed By: #### VIKASH, BMP ####[place] [id number] MANAGEMon [id number] MANAGEMHNO ID: [id number] Author: Gracia Lr RN Service: ? Author Type: Registered Nurse Type: Care Mgt Progress Note Filed: 08/19/2021 12:40 PM Note Text: CARE MANAGEMENT PROGRESS NOTE SERVICE DATE: 08/19/2021 SERVICE TIME: 12:39 pm LOS: 3 days CM working on securing a home care agency for home PT, no DC order yet, says he has a ride home tomorrow. SIGNATURE: Gracia rL RN PATIENT NAME: Mary Prieto Barbara DATE: August 19, 2021 TIME: 12:39 PM PAGER/CONTACT #: [phone] HospitalCBC and Differentialon 82-61-0709Pzo Baso0.04 k/uLNormal<0.11Lutheran HospitalComment on above:Performed By: #### CBCDIF, BMP ####[place] [id number] Mono0.85 k/uLNormal<0.87Lutheran HospitalComment on above:Performed By: #### CBCDIF, BMP ####[place] [id number] Neut4.46 k/uL Normal1.45-7.50Lutheran HospitalComment on above:Performed By: #### CBCABBIE, BMP ####[place] [id number] Absolute nRBC<0.01Normal<0.01[facility]an HospitalComment on above:Performed By: #### CBCALMAF, BMP ####[place] [id number]s/100 WBC (Bld)0.6 %NormalLutheran HospitalComment on above:Performed By: #### CBCABBIE, BMP ####[place] [id number]o [facility] Comment on above:Performed By: #### CBCDIF, BMP ####[place] [id number]s (Bld) [#/Vol]0.27 10*3/uL Normal<0.46[facility]an HospitalComment on above:Performed By: #### CBCDIF, BMP ####[place] [id number] Eosinophils/100 WBC (Bld)4.3 %NormalLutheran HospitalComment on above:Performed By: #### CBCDIF, BMP ####[place] [id number]e distribution width (RBC) [Ratio]12.1 %Normal 11.5-15.0[facility] HospitalComment on above:Performed By: #### CBCDIF, BMP ####[place] [id number] Hematocrit (Bld) [Volume fraction]28.9 %Low39.0-51.0[facility] HospitalComment on above:Performed By: #### CBCDIF, BMP ####[place] [id number] (Bld) [Mass/Vol]9.7 g/dLLow 13.0-17.0[facility] HospitalComment on above:Performed By: #### CBCDIF, BMP ####[place] [id number] Lymphocytes (Bld) [#/Vol]0.61 10*3/uLLow1.00-4.00[facility] HospitalComment on above:Performed By: #### CBCDIF, BMP ####[place] [id number]s/100 WBC (Bld)9.8 %Normal [facility] HospitalComment on above:Performed By: #### CBCDIF, BMP ####[place] [address]13216-363-2018MCH32.4 pGNormal 26.0-34.0[facility] HospitalComment on above:Performed By: #### CBCDIF, BMP ####[place] [id number] (RBC) [Mass/Vol]33.6 g/lRFrqhzi85.5-36.0[facility] HospitalComment on above: Performed By: #### CBCDIF, BMP ####[place] [id number] (RBC) [Entitic vol]96.7 fLNormal 80.0-100.0[facility]utheran HospitalComment on above:Performed By: #### CBCDIF, BMP ####[address] Monocytes/100 WBC (Bld)13.6 %NormalLutgood samaritan hospital HospitalComment on above:Performed By: #### CBCDIF, BMP ####[address] [phone]/100 WBC (Bld)71.7 %NormalLatter-Day HospitalComment on above:Performed By: #### CBCDIF, BMP ####[place] [id number] /100 NYHWnbgqo7Anzsmhlr Hospital Comment on above:Performed By: #### DAMIENF, BMP ####[place] [id number] mean volume (Bld) [Entitic vol]11.1 fLNormal9.0-12.7[facility] HospitalComment on above:Performed By: #### DAMIENF, BMP ####[address] [phone] (Bld) [#/Vol]130 10*3/hQRbx470-878Zqjtpjdc Hospital Comment on above:Performed By: #### CBCDIF, BMP ####[address] [phone] (Bld) [#/Vol]2.99 10*6/uLLow 4.20-6.00[facility] HospitalComment on above:Performed By: #### CBCDIF, BMP ####[address] [phone] (Bld) [#/Vol]6.23 10*3/uLNormal3.70-11.00[facility] HospitalComment on above: Performed By: #### CBCDIF, BMP ####[place] [id number] NOon [id number] NOO ID: [id number] Author: Loyda Steele MD Service: Neurosurgery Author Type: Physician Type: Operative Report Filed: 08/19/2021 5:38 AM Note Text: OPERATIVE/PROCEDURE REPORT LOG ID: [id number] SURGERY/PROCEDURE DATE: 08/16/2021 INCISION/PROCEDURE START TIME: 11:17 AM INCISION CLOSE/PROCEDURE END TIME: 3:26 PM SURGEON(S)/PROCEDURALIST(S) AND WINTER INTERN(S): Surgeon(s) and Role: * Loyda Steele MD - Primary Physician Respiratory Therapy Manager: Christine Gutierrez PA-C SURGERY/PROCEDURE(S): L5/S1 TLIF ANESTHESIA: [...] at a expandable cage 10-16 mm. The Niles system was the instrumentation system used. 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 The gear shift along with [...] Implant Name Type Inv. Item Serial No. Central Office Installer Lot No. LRB No. Used Action GRAFT INFUSE 14MM SMALL BOVINE COLLAGEN RHBMP-2 23MM BONE ABSORBABLE SPONGE - [id number] Bone GRAFT INFUSE 14MM SMALL BOVINE COLLAGEN RHBMP-2 23MM BONE ABSORBABLE SPONGE [employer] [id number] N/A 1 Implanted Prolift expandable spacer Implant HJH-RT-I-KIND IMPLANT JANETT [id number] N/A 1 Implanted SCREW JORDANA 3 TITANIUM SET CORNELL SPINE - [id number] Implant SCREW JORDANA 3 TITANIUM SET CORNELL SPINE JANETT SPINE N/A 5 Implanted SCREW JORDANA 3 VARGAS 6.5MM 50MM BONE POLYAXIAL NONSTERILE SPINE - [id number] Screw SCREW JORDANA 3 VARGAS 6.5MM 50MM BONE POLYAXIAL NONSTERILE SPINE JANETT SPINE N/A 2 Implanted LAMONTE JORDANA 3 6MM TITANIUM 50MM SPINAL RADIOLUCENT - [id number] Lamonte LAMONTE JORDANA 3 6MM TITANIUM 50MM SPINAL RADIOLUCENT JANETT SPINE N/A 1 Implanted LAMONTE JORDANA 3 6MM TITANIUM 70MM SPINAL RADIOLUCENT - [id number] Lamonte LAMONTE JORDANA 3 6MM TITANIUM 70MM SPINAL RADIOLUCENT JANETT SPINE N/A 1 Implanted DRAINS: Subfascial drain COMPLICATIONS: None PARTICIPATION I (more content not included)...[facility] ShawTHER[facility] NT on [id number] NTHNO ID: [id number] Author: Dionte Estrada, PT Service: Physical Therapy Author Type: Physical Therapist Type: Therapy (PT/OT/Speech/Resp) Filed: 08/19/2021 11:31 AM Note Text: Physical Therapy Treatment SERVICE DATE: 08/19/2021 SERVICE TIME: 1054 to 1118 ROOM: [id number]-02 Recommended Discharge Disposition: Home PT Recommended Discharge [...] at Home Physical Assist at Home for: Transfers;Cleaning;Laundry;Meals;Stairs;Safety;Self Care;Shopping;Transportation Recommended Discharge Equipment: No equipment needs anticipated [...] Activity Tolerance Treatment Interventions: Energy Conservation Training;Joint Mobility;Strengthening;Functional Mobility Training;Balance Training Plan for next visit: [...] chair Laundry: main floor Equipment Owned: Cane;Wheeled Walker;Handstitching Machine Collar Feller;Grab Bars-Shower;ADL Kit;Elevated Toilet Seat;Extended tub bench Prior [...] demonstrate progress with func (more content not included)...[facility] ShawXR LUMBAR 2V AP/LATon [id number] LUMBAR 2V AP/LAT* * *Final Report* * * DATE OF [...] IMPRESSION: Postoperative findings as given in results. Reactor Operator: PSCAgustín Transcribe Date/Time: Aug 19 2021 11:14A Dictated by : SHARMIN PEREZ MD This examination was interpreted and the report reviewed and electronically signed by: SHARMIN PEREZ MD on Aug 19 2021 11:18AM EST [id number] ClinicBasic Metabolic Panlon 08-18-2021 Anion gap [Moles/Vol]10 mmol/LNormal9-18[facility] HospitalComment on above: Performed By: #### BMP, CBC ####[address] [phone] [Mass/Vol]8.7 mg/dLNormal8.5-10.2LKindred Healthcare Comment on above:Performed By: #### BMP, CBC ####[address] [phone] [Moles/Vol]98 mmol/INafddq85-964 [facility] HospitalComment on above:Performed By: #### BMP, CBC ####[address] [phone] [Moles/Vol]28 mmol/IUapgfp59-59Gmdlxjbf HospitalComment on above:Performed By: #### BMP, CBC ####[address] Creatinine [Mass/Vol]1.33 mg/dLHigh0.73-1.22[facility] HospitalComment on above: Performed By: #### BMP, CBC ####[address] [phone]-Rkpriay Amer.>60Normal>59[facility] HospitalComment on above:Performed By: #### BMP, CBC ####[address] [phone]-Qep Other Races54 .Low>59[facility] HospitalComment on above:Result Comment: eGFR (Estimated GFR) Units of measure: [...] visit the National Kidney Foundation website at kidney.org/professiona ls/kdoqi/gfr_calculator.Performed By: #### CHARU, CBC ####[place] [id number] [Mass/Vol]109 mg/dLHigh 74-99[facility] HospitalComment on above:Performed By: #### CHARU, CBC ####[place] [id number]m [Moles/Vol]4.2 mmol/LNormal3.7-5.1[facility] HospitalComment on above:Performed By: #### CHARU, CBC ####[place] [id number] [Moles/Vol]136 mmol/DGoqagl954-210Fqkdhvzj Hospital Comment on above:Performed By: #### CHARU, CBC ####[place] [id number] nitrogen [Mass/Vol]13 mg/dLNormal9-24 [facility] HospitalComment on above:Performed By: #### CHARU, CBC ####[place] [id number] 08-18-2021 Absolute nRBC<0.01Normal<0.01[facility] HospitalComment on above:Performed By: #### CHARU, CBC ####[place] [id number]yte distribution width (RBC) [Ratio]12.3 %Normal 11.5-15.0[facility] HospitalComment on above:Performed By: #### CHARU, CBC ####[place] [address]13216-363-2018 Hematocrit (Bld) [Volume fraction]31.9 %Low39.0-51.0[facility] HospitalComment on above:Performed By: #### CHARU, CBC ####[place] [address]13216-363-2018Hemoglobin (Bld) [Mass/Vol]10.4 g/dLLow 13.0-17.0[facility] HospitalComment on above:Performed By: #### BMP, CBC ####[place] [address]13216-363-2018MCH32.3 xRIlehge42.0-34.0[facility] HospitalComment on above:Performed By: #### BMP, CBC ####[place] [address]13216-363-2018MCHC (RBC) [Mass/Vol]32.6 g/nUJztmaq87.5-36.0[facility] HospitalComment on above: Performed By: #### BMP, CBC ####[place] [address]13216-363-2018MCV (RBC) [Entitic vol]99.1 nWRmuxuy51.0-100.0[facility] HospitalComment on above:Performed By: #### BMP, CBC ####[place] [address]13216-363-2018Platelet mean volume (Bld) [Entitic vol]11.6 fLNormal9.0-12.7[facility] HospitalComment on above:Performed By: #### BMP, CBC ####[place] [address]13216-363-2018Platelets (Bld) [#/Vol]133 10*3/gOIcx525-613[facility] Comment on above:Performed By: #### BMP, CBC ####[place] [address]13216-363-2018RBC (Bld) [#/Vol]3.22 10*6/uLLow4.20-6.00 [facility] HospitalComment on above:Performed By: #### BMP, CBC ####[place] [address]13216-363-2018WBC (Bld) [#/Vol] 8.49 10*3/uLNormal3.70-11.00[facility] HospitalComment on above:Performed By: #### BMP, [facility] ####[facility] Uv[address]euqq[address] [phone] NTon 91-39-4912AMLQMYI NTHNO ID: [id number] Author: Jon Calderón PTA Service: Physical Therapy Author Type: Paraprofessional Education Assistant Type: Therapy (PT/OT/Speech/Resp) Filed: 08/18/2021 5:59 PM Note Text: Attestation signed by Italia Morales PT at 08/19/2021 3:13 PM I reviewed and agree with the documentation corresponding to this therapy visit. SIGNATURE: Italia Morales PT DATE: August 19, 2021 TIME: 3:13 PM Physical Therapy Treatment SERVICE DATE: 08/18/2021 SERVICE TIME: 1420 to 1500 ROOM: [id number] Recommended Discharge Disposition: Home PT Recommended Discharge [...] at Home Physical Assist at Home for: Transfers;Cleaning;Laundry;Meals;Stairs;Safety;Self Care;Shopping;Transportation Recommended Discharge Equipment: To Be Determined PT 6 Clicks Score: 22 Pt demos improved endurance/able to manage steps..patient debating home vs homecare but recommend homecare to improve strength/endurance/improve stairclimbing at home Precautions/Activity Restrictions: Spine Current [...] Activity Tolerance Treatment Interventions: Energy Conservation Training;Joint Mobility;Strengthening;Functional Mobility Training;Balance Training Home Environment Patient Lives With: Self/Alone Assistance Available: None Entry To Home: Stairs;With Rail (suresh HR) Number Of Stairs Into Home: 5 Number Of Stairs To Bed/Bath: 15 Stairs to Bed/Bath with: Unilateral Rail Tub/Shower Type: tub shower with grab bar and shower chair Laundry: main floor Equipment Owned: Cane;Wheeled Walker;Handstitching Machine Collar Feller;Grab Bars-Shower;ADL Kit;Elevated Toilet Seat;Extended tub bench Prior [...] functional needs identified.;Patient rob (more content not included)...[facility] HospitalTHERAPY [facility] ID: [id number] Author: MYRTLE Mendoza Service: Occupational Therapy Author Type: Occupational Therapist Type: Therapy (PT/OT/Speech/Resp) Filed: 08/18/2021 4:58 PM Note Text: OCCUPATIONAL THERAPY MISSED VISIT SERVICE DATE: 08/18/2021 SERVICE TIME: 1548 to 1549 ROOM: [place] [address] Patient not seen due to Declined. Patient [...] ADLs prior to discharge as able. SIGNATURE: MYRTLE Mendoza PATIENT NAME: Mary Prieto Barbara DATE: August 18, 2021 TIME: 4:57 PMNormalOhiohealth Marion General HospitalBasic Metabolic Panlon 60-06-8491Lyimm gap [Moles/Vol]7 mmol/LLow03-16[facility] HospitalComment on above:Performed By: #### CBC, BMP ####[facility] Qaheibph[address] [phone] [Mass/Vol]8.3 mg/dLLow8.5-10.2[facility] HospitalComment on above:Performed By: #### CBC, BMP ####[place] [address] [address] [phone] [Moles/Vol]98 mmol/YScbfdt39-773 Latter-Day HospitalComment on above:Performed By: #### CBC, BMP ####[facility] [phone] [Moles/Vol]29 mmol/NOplsff32-51Iteslxrj HospitalComment on above:Performed By: #### CBC, BMP ####[place] [address] [address] Creatinine [Mass/Vol]1.25 mg/dLHigh0.73-1.22[facility] HospitalComment on above: Performed By: #### CBC, BMP ####[place] [address] [phone]-Spowfnj Amer.>60Normal>59[facility]uther[facility] HospitalComment on above:Performed By: #### CBC, BMP ####[place] [address] [phone]-Nqi Other Races59 .Low>59[facility]utheran HospitalComment on above:Result Comment: eGFR (Estimated GFR) Units of measure: [...] visit the National Kid[employer] website at kidney.org/professiona ls/kdoqi/gfr_calculator.Performed By: #### CBC, BMP ####[place] 8013813216-363-2018Glucose [Mass/Vol]135 mg/dLHigh 74-99[facility] HospitalComment on above:Performed By: #### CBC, BMP ####[place] 8013813216-363-2018Potassium [Moles/Vol]4.2 mmol/LNormal3.7-5.1[facility] HospitalComment on above:Performed By: #### CBC, BMP ####[place] 8013813216-363-2018Sodium [Moles/Vol]134 mmol/GShh080-299Fmatngcv HospitalComment on above:Performed By: #### CBC, BMP ####[place] [address]13216-363-2018Urea nitrogen [Mass/Vol]16 mg/dLNormal9-24 [facility] HospitalComment on above:Performed By: #### CBC, BMP ####[place] 801[address]13216-363-2018CBCon 08-17-2021 Absolute nRBC<0.01Normal<0.01[facility] HospitalComment on above:Performed By: #### CBC, BMP ####[place] 8013813216-363-2018Erythrocyte distribution width (RBC) [Ratio]12.3 %Normal 11.5-15.0[facility] HospitalComment on above:Performed By: #### CBC, BMP ####[place] 8013813216-363-2018 Hematocrit (Bld) [Volume fraction]33.6 %Low39.0-51.0[facility] HospitalComment on above:Performed By: #### CBC, BMP ####[place] [address]13216-363-2018Hemoglobin (Bld) [Mass/Vol]11.2 g/dLLow 13.0-17.0[facility] HospitalComment on above:Performed By: #### CBC, BMP ####[place] 801[address]13216-363-2018MCH32.4 uMTbjdbh92.0-34.0[facility] HospitalComment on above:Performed By: #### CBC, BMP ####[place] 801[address]13216-363-2018MCHC (RBC) [Mass/Vol]33.3 g/iWIcjwqs81.5-36.0[facility] HospitalComment on above: Performed By: #### CBC, BMP ####[place] 8013813216-363-2018MCV (RBC) [Entitic vol]97.1 pYRcdrbe80.0-100.0[facility] HospitalComment on above:Performed By: #### CBC, BMP ####[place] 8013813216-363-2018Platelet mean volume (Bld) [Entitic vol]10.9 fLNormal9.0-12.7[facility] center[facility] HospitalComment on above:Performed By: #### CBC, BMP ####[place] [address]13216-363-2018Platelets (Bld) [#/Vol]129 10*3/uXSbm060-148Fqlulqvt Hospital Comment on above:Performed By: #### CBC, BMP ####[place] [address]13216-363-2018RBC (Bld) [#/Vol]3.46 10*6/uLLow4.20-6.00 [facility]-Day HospitalComment on above:Performed By: #### CBC, BMP ####[place] [address]13216-363-2018WBC (Bld) [#/Vol] 8.02 10*3/uLNormal3.70-11.00[facility] HospitalComment on above:Performed By: #### CBC, BMP ####[address] [id number] 85-66-1178JAVNTJBJVJ ID: [id number] Author: Elsy Don MD Service: General Internal Medicine Author Type: Physician Type: Consults Filed: 08/17/2021 12:27 PM Note Text: INTERNAL MEDICINE CONSULT HISTORY AND PHYSICAL PLEASE DO NOT REMOVE FROM THE CHART OR MODIFY PRINTED COPY Patient Name: Mary Jimenez PRIMARY CARE PHYSICIAN: Jose Valdovinos DO CONSULTING PHYSICIAN: Loyda Steele MD MD [...] . No sob . No urgency pain 10 PAST MEDICAL HISTORY: PAST MEDICAL HISTORY Diagnosis [...] , Disp: , Rfl: , 08/15/2021 [place] [address] OMEPRAZOLE (PRILOSEC ORAL), Take 40 mg by [...] fremanezumab-vfrm (AJOVY SYRINGE SUBCUTANEO (more content not included)...[facility] HospitalTHERAPY NT [id number] NTO ID: [id number] Author: July Smith OTR/L Service: Occupational Therapy Author Type: Occupational Therapist Type: Therapy (PT/OT/Speech/Resp) Filed: 08/17/2021 1:52 PM Note Text: Occupational Therapy Evaluation SERVICE DATE: 08/17/2021 SERVICE TIME: 1240 to 1313 ROOM: [id number] Recommended Discharge Disposition: Subacute/SNF Recommended Discharge Disposition [...] at Home Physical Assist at Home for: Transfers;Cleaning;Laundry;Meals;Stairs;Safety;Self Care;Shopping;Transportation Recommended Discharge Equipment: To Be Determined OT [...] chair Laundry: main floor Equipment Owned: Cane;Wheeled Walker;Handstitching Machine Collar Feller;Grab Bars-Shower;ADL Kit;Elevated Toilet Seat;Extended tub bench Prior [...] not attempted Learning/Educational Needs: Discharge Plan;Equipment;Functional Activities/Mobility;Pain Management;Precautions;Safety;Self Care Goals for Plan of Care: Patient [...] daily living (ADL) Interventions Provided: Evaluation;Therapeutic Activity (93818) $ Evaluation-Low (35748) Billed Units: 1 unit Training AND education [...] specific clinical documentation lu (more content not included)...[facility] ID: [id number] Author: Dionte Estrada, PT Service: Physical Therapy Author Type: Physical Therapist Type: Therapy (PT/OT/Speech/Resp) Filed: 08/17/2021 12:12 PM Note Text: Physical Therapy Evaluation SERVICE DATE: 08/17/2021 SERVICE TIME: 1105 to 1149 ROOM: [place] [address] Recommended Discharge Disposition: Subacute/SNF Recommended Discharge Disposition [...] at Home Physical Assist at Home for: Cleaning;Laundry;Meals;Stairs;Shopping;Transportation Recommended Discharge Equipment: To Be Determined PT [...] Strength;Balance Impaired;Sensory Deficit;Decreased Activity Tolerance Treatment Interventions: Education;Strengthening;Functional Mobility Training;Balance Training;Pain Management Plan for next [...] chair Laundry: main floor Equipment Owned: Cane;Wheeled Walker;Handstitching Machine Collar Feller;Grab Bars-Shower;Shower Chair Prior Functional Level: Within Functional [...] Activities/Mobility;Pain Management;Plan of Care;Precautions;Rehabil (more content not included)...[facility] POSTPROC EVALon 07-27-7657NCHW POSTPROC EVALHNO ID: [id number] Author: Naeem Banks MD Service: Anesthesiology Author Type: Anesthesiologist Type: Anesthesia Postprocedure Evaluation Filed: 08/16/2021 4:48 PM Note Text: POST ANESTHESIA EVALUATION NOTE : 1960 Procedure Summary Date: 08/16/21 Room / Location: [place] [address] / OR Anesthesia Start: 1047 Anesthesia Stop: [...] August 16, 2021 TIME: 4:48 PM CSN: [id number]. [facility] PRE-OPon 17-53-7032GJKR PRE-OPHNO ID: [id number] Author: David Og MD Service: Anesthesiology Author [...] (N/A Spine Lumbar) - L5S1 TLIF Location: DENY OR09 / DENY OR Surgeons: Loyda Steele MD [...] mout (more content not included)... [facility] OP NOTon 76-49-4921ECVKF OP NOTHNO ID: [id number] Author: Loyda Steele MD Service: Neurosurgery Author Type: Physician Type: Brief Op Note Filed: 08/16/2021 3:28 PM Note Text: BRIEF OPERATIVE / PROCEDURE NOTE LOG ID: [id number] SURGERY/PROCEDURE DATE: 08/16/2021 INCISION/PROCEDURE START TIME: 11:17 AM INCISION CLOSE/PROCEDURE END TIME: 3:26 PM SURGEON(S)/PROCEDURALIST(S) AND WINTER INTERN(S): Surgeon(s) and Role: * Loyda Steele MD - Primary Physician Respiratory Therapy Manager: Christine Gutierrez PA-C SURGERY/PROCEDURE(S): L5/S1 TLIF ANESTHESIA: General FINDINGS: Appropriate decompression and hardware placement ESTIMATED BLOOD LOSS: 1000 mls SPECIMENS: None COMPLICATIONS: None DRAINS: Subfascial drain PRE-OP/PRE-PROCEDURE DIAGNOSIS: L5/S1 spondylolisthesis POST-OP/POST-PROCEDURE DIAGNOSIS: L5/S1 spondylolisthesis SIGNATURE: Loyda Steele MD PATIENT NAME: Mary Jimenez DATE: August 16, 2021 TIME: 3:24 [facility] [id number] PROGHNO ID: [id number] Author: Lucien Mehta RN Service: Nursing Author Type: Registered Nurse Type: Nursing Progress Note Filed: 08/16/2021 4:57 PM Note Text: Nursing Progress Note Patient Name: Mary Jimenez Patient [facility]517/YQ-1F-332B Transfer Note: Patient transferred into room/unit 517-2 in stable condition. Actions taken: Patient and family oriented to 5D unit policies and procedures. Educated on falls risks, falls precautions, and use of call crouch prior to getting OOB. Patient resting in bed. Call light within reach. All needs met at this time. This note was completed by: Lucien MehtaSelect Medical [facility] ID: [id number] Author: Merced Pickett RN Service: ? Author Type: Registered Nurse Type: Nursing Progress Note Filed: 08/16/2021 10:47 AM Note Text: Patient transported to the OR via cart, accompanied by LB/IR. Level of consciousness: Alert and Oriented x 3 Emotional Status:Calm Sensory Impairments: No Language Barrier: No Mobility Impairments: No Addressed any patient concerns regarding consents, OR environment, and anesthetics.[facility] ID: [id number] Author: Merced Pickett RN Service: ? Author Type: Registered Nurse Type: Nursing Progress Note Filed: 08/16/2021 10:46 AM Note Text: Body temperature maintained by maintaining OR room temperature between 68-72 degrees F, providing patient with warm bath blankets, limiting areas of exposure and providing warm irrigation fluid.[facility] OhioURGICAL PATHOLOGYon 85-27-7362ZCVGQGRT PATHOLOGYSpecimen originated from [facility] Specimen #: [id number] Submitting Physician: LYODA STEELE MD FINAL DIAGNOSIS L5-S1 - Spinal hardware (gross examination only). LEISA/RAUL/antonio 08/19/2021 Caitlyn Cartagena M.D. (Electronic Signature) SPECIMEN SUBMITTED A: OLD HARDWARE CLINICAL DATA SPONDYLOLISTHESIS OF LUMBAR REGION; L5-S1 TLIF; ADJACENT SEGMENT DISEASE GROSS DESCRIPTION A. Received fresh designated old hardware is a cylindrical screw that measures 6.5 cm in length and contains the inscription [id number] . Also within the container are two curved rods that measure 4 cm in length. Lastly within the container, are four metallic discs each measuring 1 cm in diameter. There is no tissue present. The specimen is reviewed by Dr. Cartagena. RAUL/antonio 08/19/2021 [place] [address] Date of Report: 08/19/2021 Date of Procedure: 08/16/2021 Date of Receipt: 08/16/2021 Submitted by: LOYDA STEELE MD Location: [facility] Diagnostic interpretation performed at [facility], [address] [place] [address]. CLIA Number: [id number] HospitalXR LUMBAR 2V AP/LATon [id number] LUMBAR 2V AP/LAT* * *Final Report* * * DATE OF [...] disc space. No fracture. IMPRESSION: As above. Reactor Operator: OLI Transcribe Date/Time: Aug 16 2021 2:54P Dictated by : DIONTE MANNING MD This examination was interpreted and the report reviewed and electronically signed by: DIONTE MANNING MD on Aug 16 2021 2:55PM EST [id number] ClinicXR LUMBAR SPECIFY 1Von [id number] LUMBAR SPECIFY 1V* * *Final Report* * * DATE OF [...] Intraoperative examination for surgical planning and documentation. Reactor Operator: PSCB Transcribe Date/Time: Aug 16 2021 3:12P Dictated by : VEDA KIRKLAND DO This examination was interpreted and the report reviewed and electronically signed by: VEDA KIRKLAND DO on Aug 16 2021 3:26PM EST [id number] ClinicXR LUMBAR SPECIFY 1V* * *Final Report* * * DATE OF [...] Intraoperative examination for surgical planning and documentation. Reactor Operator: OLI Transcribe Date/Time: Aug 16 2021 3:12P Dictated by : VEDA KIRKLAND DO This examination was interpreted and the report reviewed and electronically signed by: VEDA KIRKLAND DO on Aug 16 2021 3:26PM EST [id number] [facility] General HospitalXR LUMBAR SPECIFY 1V* * *Final Report* * * DATE OF [...] Intraoperative examination for surgical planning and documentation. Reactor Operator: OLI Transcribe Date/Time: Aug 16 2021 3:12P Dictated by : VEDA KIRKLAND DO This examination was interpreted and the report reviewed and electronically signed by: VEDA KIRKLAND DO on Aug 16 2021 3:26PM EST [id number] Health [facility] Hospital HospitalType and SCR (30D)on 08-07-2021 ABO/RH(D)PositiveNoMohawk Valley General Hospitaln HospitalComment on above:Performed By: #### [id number] #### [place] [address] JA Lumbar spine WO contraston 48-12-6056KEBDAJZPVR: Postoperative changes and degenerative changes in the lower lumbar spine as detailed. There is no severe spinal canal stenosis. Slight progression of moderate left and mild to moderate right foraminal narrowing at L5-S1 when compared to 06/25/2017. Anatomic Thoracic/Lumbar Variant: None. L4-5 is considered the level of the iliac crest and assume there are 5 lumbar-type vertebrae. Reactor Operator: OLI Transcribe Date/Time: Feb 14 2021 1:32P Dictated by : RAMANDEEP ACRNEY MD This examination was interpreted and the report reviewed and electronically signed by: RAMANDEEP CARENY MD on Feb 15 2021 7:56AM EST DIVISION OF RADIOLOGY* * *Final Report* * * DATE OF EXAM: Feb 14 2021 12:15PM LN 0303 - MRI LUMBAR SPINE WO IVCON [...] osteophytes and facet hypertrophy. Moderate left and mrwg-bb-wvwkuwxo right foraminal stenosis, slightly progressed. Canal is patent. Sacrum and iliac wings: The visualized sacrum and iliac wings are within normal limits. DIVISION OF RADIOLOGYProvider, Psychiatric Imaging [place] - 02/15/2021 * * *Final Report* * [...] osteophytes and facet hypertrophy. Moderate left and ofta-nh-nnbugklc right foraminal stenosis, slightly progressed. Canal is [...] and assume there are 5 lumbar-type vertebrae. Reactor Operator: PSCB Transcribe Date/Time: Feb 14 2021 1:32P Dictated by : RAMANDEEP CARNEY MD This examination was interpreted and the report reviewed and electronically signed by: RAMANDEEP CARNEY MD on Feb 15 2021 7:56AM EST [facility] Lumbar spine WO contrastOrdered By: Ccf Provider on [id number] ClinicMR Lumbar spine WO contraston [id number] Study observation (narrative)[facility] CARDIAC STRESS/REST (MYOCARDIAL PERFUSION/MIBI)on [id number] CARDIAC STRESS/REST (MYOCARDIAL PERFUSION/MIBI) Patient Name: MARY JIMENEZ STUDY: MYOCARDIAL PERFUSION STRESS TEST WITH LEXISCAN Performing facility: [facility], \[address], [address], \[place] [address] [facility] Provider: Danisha Bran MD PCP: Dr. Ana Valdovinos Supervising provider: Yobany Garcia MD, [facility] INDICATION: Chest Pain; SOB; HISTORY: Gender: M; Age: 59 y/o ; Height: 177.8 cm; Weight: 196.8156994 kg. High Cholesterol; HTN; Chest Pain; SOB; Denies smoking. Cardiac catheterization on 1999. COMPARISON: Previous nuclear testing completed [id number] [facility]. ACCESSION NUMBER(S): [id number]; [id number]; [id number] ORDERING CLINICIAN: DANISHA BRAN TECHNIQUE: TWO DAY [...] no significant interval changes. Electronically signed by: Raeann RIZVIWeisbrod Memorial County Hospital CARDIAC STRESS/REST INJECTIONon [id number] CARDIAC STRESS/REST INJECTIONMRN: [id number] Patient Name: MARY JIMENEZ STUDY: MYOCARDIAL PERFUSION STRESS TEST WITH LEXISCAN Performing facility: [facility], \[address], [address], \[place] [address] [facility] Provider: Danisha Bran MD PCP: Dr. Ana Valdovinos Supervising provider: Yobany Garcia MD, [facility] INDICATION: Chest Pain; SOB; HISTORY: Gender: M; Age: 59 y/o ; Height: 177.8 cm; Weight: 519.6501241 kg. High Cholesterol; HTN; Chest Pain; SOB; Denies smoking. Cardiac catheterization on 1999. COMPARISON: Previous nuclear testing completed [id number] [facility]. ACCESSION NUMBER(S): [id number]; [id number]; [id number] ORDERING CLINICIAN: DANISHA BRAN TECHNIQUE: TWO DAY [...] interval changes. Electronically signed by: YOBANY GARCIA MDSelect Specialty [facility] PART 2 STRESS OR REST (NO CHARGE)on 50-23-8893MSU PART 2 STRESS OR REST (NO CHARGE) Patient Name: MARY JIMENEZ STUDY: MYOCARDIAL PERFUSION STRESS TEST WITH LEXISCAN Performing facility: [facility], \[address], [address], \[place] [address] [facility] Provider: Danisha Bran MD PCP: Dr. Ana Valdovinos Supervising provider: Yobany Garcia MD, [facility] INDICATION: Chest Pain; SOB; HISTORY: Gender: M; Age: 59 y/o ; Height: 177.8 cm; Weight: 578.2873814 kg. High Cholesterol; HTN; Chest Pain; SOB; Denies smoking. Cardiac catheterization on 1999. COMPARISON: Previous nuclear testing completed [id number] [facility]. ACCESSION NUMBER(S): [id number]; [id number]; [id number] ORDERING CLINICIAN: DANISHA BRAN TECHNIQUE: TWO DAY [...] interval changes. Electronically signed by: YOBANY GARCIA MDWernersville State Hospital Vital Signs Date TimeVital SignValuePerforming RqdfxsersAjkxmktm35-82-8451 13:27-0500Body adyhrq497.26 cmKarl Oberer DO Work Phone: [phone])[address] [place], [place] 6046211-03-2025 13:27-0500 Body mass index (BMI) [Ratio]41.5 kg/m2Karl Oberer DO Work Phone: 1(636)[address] [place], [place] 6046211-03-2025 13:27-0500 Body yznkhrejeqa60 [degF]Jose Oberer DO Work Phone: 1(807)[address] [place], [place] 6046211-03-2025 13:27-0500 Body kzeeda393.71 kgKarl Oberer DO Work Phone: 1(028)[address] [place], [place] 6046211-03-2025 13:27-0500 Diastolic blood qwpyknat30 mm[Hg]Jose Oberer DO Work Phone: 1(794)[address] [place], [place] 6046211-03-2025 13:27-0500 Heart rate69 /minKarl Oberer DO Work Phone: 1(622)[address] [place], [place] 6046211-03-2025 13:27-0500 Respiratory rate16 /minKarl Oberer DO Work Phone: [phone])[address] [place], [place] 6046211-03-2025 13:27-0500 SaO2% (BldA) [Mass fraction]96 %Jose Oberer DO Work Phone: 1(194)[address] [place], [place] 6046211-03-2025 13:27-0500 Systolic blood punehluo898 mm[Hg]Jose Oberer DO Work Phone: 1(395)[address] [place], [place] 6046210-27-2025 11:36-0400 Diastolic blood lkovydnt96 mm[Hg]Jose Oberer DO Work Phone: 1(694)[address] [place], [place] 6046210-27-2025 11:36-0400 Heart rate85 /minKarl Oberer DO Work Phone: 1(262)[address] [place], [place] 6046210-27-2025 11:36-0400 SaO2% (BldA) [Mass fraction]98 %Jose Oberer DO Work Phone: 1(272)[address] [place], [place] 6046210-27-2025 11:36-0400 Systolic blood hhrvarcd691 mm[Hg]Jose Oberer DO Work Phone: 1(982)[address] [place], [place] 6046210-21-2025 08:23-0400 Body .26 cmKarl Oberer DO Work Phone: 1(032)[address] [place], [place] 6046210-21-2025 08:23-0400 Body mass index (BMI) [Ratio]42.3 kg/m2Karl Oberer DO Work Phone: 1(033)[address] [place], [place] 6046210-21-2025 08:23-0400 Body blbvxu767.18 kgKarl Oberer DO Work Phone: 1(034)[address] [place], [place] 6046210-21-2025 08:23-0400 Diastolic blood zsolgdzf47 mm[Hg]Jose Oberer DO Work Phone: 1(725)[address] [place], [place] 6046210-21-2025 08:23-0400 Heart ypfe570 /minKarl Oberer DO Work Phone: 1(572)[address] [place], [place] 6046210-21-2025 08:23-0400 Respiratory rate16 /minKarl Oberer DO Work Phone: [phone])[address] [place], [place] 6046210-21-2025 08:23-0400 SaO2% (BldA) [Mass fraction]92 %Jose Oberer DO Work Phone: 1(966)[address] [place], [place] 6046210-21-2025 08:23-0400 Systolic blood mm[Hg]Jose Oberer DO Work Phone: 1(110)[address] [place], [place] 6046209-08-2025 10:29-0400 Body vgjoip064.5 cmTodd Spring PA Work Phone: [facility] HospitalVgvxtbgcqb83-73-7801 10:29-0400Body mass index (BMI) [Ratio]38.72 kg/m2Tocandis Mike RAIMUNDO Work Phone: [facility] LouisYqnlxpavuo06-13-2632 10:29-0400Body ncqgin302.66 kgTocandis Mike RAIMUNDO Work Phone: [facility] LouisAaixkdmtjn25-60-8572 09:19-0400Body .5 Shima Dubose MD Work Phone: [facility] HospitalBfwnemedmz22-83-7601 09:19-0400Body mass index (BMI) [Ratio]38.72 kg/a7OsuxdRosey Dubose MD Work Phone: [facility] HospitalFrpajkgtrd51-55-1843 09:19-0400Body djibcb357.66 kgRosey Dubose MD Work Phone: [facility] LouisMdwjsfiyei22-00-0400 09:19-0400Diastolic blood cbmuhbgv57 mm[Hg]Rosey Dubose MD Work Phone: [phone] HospitalXjiojnposd27-15-6732 09:19-0400Heart rate78 /min Rosey Dubose MD Work Phone: [facility] HospitalXzaoxnthnz13-10-9925 09:19-0400Respiratory rate18 /minRosey Dubose MD Work Phone: [facility] HospitalJzlekajjmh51-69-3965 09:19-3734PnN0% (BldA) [Mass fraction]94 %Rosey Dubose MD Work Phone: [facility] HospitalHofrqetgua36-76-9759 09:19-0400Systolic blood mm[Hg]Rosey Dubose MD Work Phone: [facility] HospitalZjqzsszofs77-67-7532 08:36-0400Body .5 cmAdvanced Providers Work Phone: [facility]08-18-2025 08:36-0400Body mass index (BMI) [Ratio]39.77 kg/y5Sjzxzbgp Providers Work Phone: [facility]08-18-2025 08:36-0400Body temperature 98.1 [degF]Advanced Providers Work Phone: [phone]08-18-2025 08:36-0400Body .9 kgAdvanced Providers Work Phone: [phone]08-18-2025 08:36-0400Diastolic blood amocdiro36 mm[Hg]Advanced Providers Work Phone: [phone]08-18-2025 08:36-0400Heart rate75 /min [facility] Work Phone: [phone]08-18-2025 08:36-5631QoT0% (BldA) [Mass fraction]97 %[facility] Work Phone: [phone]08-18-2025 08:36-0400Systolic blood nrzcfnio880 mm[Hg][facility] Prov[facility] Work Phone: [phone]08-07-2025 15:44-0400Diastolic blood plesylrm67 mm[Hg]Jose Oberer DO Work Phone: 1(396)011-[address] [place], [place] 7362708-07-2025 15:44-0400 Heart rate70 /minKarl Oberer DO Work Phone: 1(576)[address]08-07-2025 15:44-0400 Respiratory rate12 /minKarl Oberer DO Work Phone: 1(481)122-[address] [place], [place] 7362708-07-2025 15:44-0400 SaO2% (BldA) [Mass fraction]94 %Jose Oberer DO Work Phone: [phone]08-07-2025 15:44-0400 Systolic blood lxdxzxjy131 mm[Hg]Jsoe Oberer DO Work Phone: 4(257)[address]08-07-2025 11:05-0400 Body upmeyn259.8 cmKarl Oberer DO Work Phone: 4(268)[address]08-07-2025 11:05-0400 Body mhiyqdihhph61.1 [degF]Jose Oberer DO Work Phone: [facility]08-07-2025 11:05-0400 Body kgKarl Oberer DO Work Phone: [facility]07-31-2025 16:03-0400 Body xpisel895.3 cmDanisha Bran MD Work Phone: [phone]07-31-2025 16:03-0400 Body mass index (BMI) [Ratio]40.46 kg/z1DycvolpDanisha Bran MD Work Phone: 1([phone])[address]07-31-2025 16:03-0400 Body .29 kgDanisha Bran MD Work Phone: 1(105)[address]07-31-2025 16:03-0400 Diastolic blood bhqmnnaw91 mm[Hg]Danisha Bran MD Work Phone: 1(053)[address]07-31-2025 16:03-0400 Heart rate88 /minDanisha Bran MD Work Phone: 1(011)[address]07-31-2025 16:03-0400 Systolic blood ezyfttxr756 mm[Hg]Danisha Bran MD Work Phone: [phone] [place], [place] 8535407-09-2025 11:28-0400 Body xbbqyr931.5 cmLoyda Steele MD Work Phone: [facility]07-09-2025 11:28-0400Body mass index (BMI) [Ratio]40.17 kg/x9HgwhqwLoyda Steele MD Work Phone: [facility]07-09-2025 11:28-0400Body szgofg125.19 kgLoyda Steele MD Work Phone: [facility]07-09-2025 11:28-0400Diastolic blood bfwvnygt53 mm[Hg]Loyda Steele MD Work Phone: [facility]07-09-2025 11:28-0400Heart rate64 /min Loyda Steele MD Work Phone: [facility]07-09-2025 11:28-7170JeL8% (BldA) [Mass fraction]100 %Loyda Steele MD Work Phone: [facility]07-09-2025 11:28-0400Systolic blood oikrvjfe898 mm[Hg]Loyda Steele MD Work Phone: [facility]06-23-2025 09:57-0400Body xcezlt379.26 cmKarl Oberer DO Work Phone: 1(012)[address] [place], [place] 6046206-23-2025 09:57-0400 Body mass index (BMI) [Ratio]40.6 kg/m2Karl Oberer DO Work Phone: 1(164)[address] [place], [place] 6046206-23-2025 09:57-0400 Body vsdryt172.8 kgKarl Oberer DO Work Phone: 1(219)[address] [place], [place] 6046206-23-2025 09:57-0400 Diastolic blood mm[Hg]Jose Oberer DO Work Phone: 1(562)[address] [place], [place] 6046206-23-2025 09:57-0400 Heart rate74 /minKarl Oberer DO Work Phone: 1(351)[address] [place], [place] 6046206-23-2025 09:57-0400 Respiratory rate18 /minKarl Oberer DO Work Phone: 1(048)[address] [place], [place] 6046206-23-2025 09:57-0400 Systolic blood lbkqwauu727 mm[Hg]Jose Oberer DO Work Phone: 1(768)[address] [place], [place] 6046206-16-2025 10:34-0400 Body lxgrsa401.26 cmKarl Oberer DO Work Phone: 1(840)[address] [place], [place] 6046206-16-2025 10:34-0400 Body mass index (BMI) [Ratio]41.1 kg/m2Karl Oberer DO Work Phone: 1(847)[address] [place], [place] 6046206-16-2025 10:34-0400 Body xussivldqhl91 [degF]Jose Oberer DO Work Phone: 1(227)[address] [place], [place] 6046206-16-2025 10:34-0400 Body lztdez367.26 kgKarl Oberer DO Work Phone: 1(487)[address] [place], [place] 6046206-16-2025 10:34-0400 Diastolic blood sigjdvdx02 mm[Hg]Jose Oberer DO Work Phone: 1(656)[address] [place], [place] 6046206-16-2025 10:34-0400 Heart rate92 /minKarl Oberer DO Work Phone: 1(038)[address] [place], [place] 6046206-16-2025 10:34-0400 Respiratory rate18 /minKarl Oberer DO Work Phone: 1(175)[address] [place], [place] 6046206-16-2025 10:34-0400 SaO2% (BldA) [Mass fraction]93 %Jose Oberer DO Work Phone: 1(566)[address] [place], [place] 6046206-16-2025 10:34-0400 Systolic blood shfexsnu789 mm[Hg]Jose Oberer DO Work Phone: 1(569)[address] [place], [place] 6046206-04-2025 11:08-0400 Body cmenkb245.5 cmLoyda Steele MD Work Phone: [facility]06-04-2025 11:08-0400Body mass index (BMI) [Ratio]40.3 kg/a3ShuadzLoyda Steele MD Work Phone: [facility]06-04-2025 11:08-0400Body leufwu034.6 kgLoyda Steele MD Work Phone: [facility]06-04-2025 11:08-0400Diastolic blood ohdqiixj60 mm[Hg]Loyda Steele MD Work Phone: [facility]06-04-2025 11:08-0400Heart rate96 /min Loyda Steele MD Work Phone: [facility]06-04-2025 11:08-6081CoN8% (BldA) [Mass fraction]96 %Loyda Steele MD Work Phone: [facility]06-04-2025 11:08-0400Systolic blood errplxlr803 mm[Hg]Loyda Steele MD Work Phone: [facility]05-12-2025 09:20-0400Body .26 cmKarl Oberer DO Work Phone: 1(715)[address] [place], [place] 6046205-12-2025 09:20-0400 Body mass index (BMI) [Ratio]41 kg/m2Karl Oberer DO Work Phone: 1(408)[address] [place], [place] 6046205-12-2025 09:20-0400 Body mnhodr612.09 kgKarl Oberer DO Work Phone: 1(886)[address] [place], [place] 6046205-12-2025 09:20-0400 Diastolic blood jenndkaq23 mm[Hg]Jose Oberer DO Work Phone: 1(442)[address] [place], [place] 6046205-12-2025 09:20-0400 Heart rate94 /minKarl Oberer DO Work Phone: 1(503)[address] [place], [place] 6046205-12-2025 09:20-0400 SaO2% (BldA) [Mass fraction]92 %Jose Oberer DO Work Phone: 1(938)[address] [place], [place] 6046205-12-2025 09:20-0400 Systolic blood eurbmswd894 mm[Hg]Jose Oberer DO Work Phone: 1(520)[address] [place], [place] 6046205-05-2025 13:38-0400 Diastolic blood yvptbaaa96 mm[Hg]Jose Oberer DO Work Phone: 1(496)[address] [place], [place] 6046205-05-2025 13:38-0400 Systolic blood eujjuhyk591 mm[Hg]Jose Oberer DO Work Phone: 1(419)[address] [place], [place] 6046205-05-2025 10:04-0400 Body yzefel555.26 cmKarl Oberer DO Work Phone: 1(974)[address] [place], [place] 6046205-05-2025 10:04-0400 Body mass index (BMI) [Ratio]40.6 kg/m2Karl Oberer DO Work Phone: 1(835)[address] [place], [place] 6046205-05-2025 10:04-0400 Body mtygbohxiyd01.2 [degF]Jose Oberer DO Work Phone: 1(392)[address] [place], [place] 6046205-05-2025 10:04-0400 Body wogwod176.9 kgKarl Oberer DO Work Phone: 1(129)[address] [place], [place] 6046205-05-2025 10:04-0400 Heart rate86 /minKarl Oberer DO Work Phone: 1(087)[address] [place], [place] 6046205-05-2025 10:04-0400 Respiratory rate18 /minKarl Oberer DO Work Phone: 1(934)[address] [place], [place] 6046205-05-2025 10:04-0400 SaO2% (BldA) [Mass fraction]92 %Jose Oberer DO Work Phone: 1(599)[address] [place], [place] 6046205-01-2025 10:15-0400 Body xycmlr417.5 cmAzaki EUBANKS Work Phone: [facility]ovqdirpmp58-63-0561 10:15-0400Body mass index (BMI) [Ratio]40.03 kg/m2Ewa EUBANKS Work Phone: [facility] HospitalPqfzwqhcss40-58-3154 10:15-0400Body eambcl327.74 kgEwa EUBANKS Work Phone: [facility] LouisPboukhwnkm79-48-8664 10:15-0400Diastolic blood oybtuubb08 mm[Hg]Ewa EUBANKS Work Phone: [facility] HospitalHwbbxaasaj56-96-6977 10:15-0400Heart rate87 /min Ewa Hill PA Work Phone: [facility] HospitalKrwwryboud38-97-2436 10:15-0400Respiratory rate16 /minEwa Rodriguez PA Work Phone: [facility] HospitalAfqkvrjsyq47-58-0654 10:15-9838WyQ0% (BldA) [Mass fraction]96 %Ewa Rodriguez PA Work Phone: [facility] HospitalVdfkpxtrfm21-00-5265 10:15-0400Systolic blood crtevweb205 mm[Hg]Ewa Rodriguez PA Work Phone: [facility] HospitalQlcthscvkg39-51-5724 14:38-0400Body kstrox767.26 cmKarl Oberer DO Work Phone: 1(581)[address] [place], [place] 6046204-02-2025 14:38-0400 Body mass index (BMI) [Ratio]41.1 kg/m2Karl Oberer DO Work Phone: 1(150)[address] [place], [place] 6046204-02-2025 14:38-0400 Body ghenjz892.2 kgKarl Oberer DO Work Phone: 1(024)[address] [place], [place] 6046204-02-2025 14:38-0400 Diastolic blood fosxmlgu73 mm[Hg]Jose Oberer DO Work Phone: 1(567)[address] [place], [place] 6046204-02-2025 14:38-0400 Heart rate82 /minKarl Oberer DO Work Phone: 1(327)[address] [place], [place] 6046204-02-2025 14:38-0400 Respiratory rate18 /minKarl Oberer DO Work Phone: 1(596)[address] [place], [place] 6046204-02-2025 14:38-0400 SaO2% (BldA) [Mass fraction]96 %Jose Oberer DO Work Phone: 1(763)[address] [place], [place] 6046204-02-2025 14:38-0400 Systolic blood nsuxtyfx425 mm[Hg]Jose Oberer DO Work Phone: 1(651)[address] [place], [place] 6046202-20-2025 09:39-0500 [facility]odfb406.26 [facility] 09:39-0500Body mass index (BMI) [Ratio]39.4 kg/g6TtppabatkBer[facility] Hospital02-20-2025 09:39-0500Body pcgtjahhrby22 [degF][facility]02-20-2025 09:39-0500Body ylmfly408.3 kg[facility]02-20-2025 09:39-0500Diastolic blood uihixnbz20 mm[Hg][facility] 08-18-2024 09:39-0500Heart rate89 /[facility] 08-18-2024 09:39-0500Respiratory rate18 /[facility] 08-18-2024 09:39-6957DxJ2% (BldA) [Mass fraction]95 %[facility]02-20-2025 09:39-0500Systolic blood uncsjwiy072 mm[Hg][facility]02-05-2025 14:06-0500Body mass index (BMI) [Ratio]39.28 kg/m2 Christopher Alli DO Work Phone: [facility] HospitalOafpwnmbub42-80-8434 14:06-0500Body xsigwf692.66 kgChristopher Alli DO Work Phone: [facility] HospitalEfrsfuzvzh10-82-7506 14:06-0500Diastolic blood aswglpll80 mm[Hg]Christopher Alli DO Work Phone: [facility] HospitalUosoezicqi99-02-3904 14:06-0500Heart rate76 /min Christopher Alli DO Work Phone: [facility] HospitalNelgomyhvy12-72-8064 14:06-6270PwW0% (BldA) [Mass fraction]94 %Christopher Alli DO Work Phone: [facility] HospitalTtpongtcdo01-82-1640 14:06-0500Systolic blood bwynqzhh632 mm[Hg]Christopher Alli DO Work Phone: [facility] HospitalIoeryfpvfq06-25-1809 10:16-0500Body .26 cm[facility]02-[facility]-20[facility] 10:16-0500Body mass index (BMI) [Ratio]39.4 kg/g8DzhbziyfyBerger Hospital02-03-2025 10:16-0500Body ijbqva788.1 kg[facility]02-03-2025 10:16-0500Diastolic blood mm[Hg][facility]02-03-2025 10:16-0500 Heart rate90 /min[facility]02-03-2025 10:16-9373KdQ4% (BldA) [Mass fraction]94 %[facility]02-03-2025 10:16-0500 Systolic blood iwpjhnop825 mm[Hg][facility]01-30-2025 12:59-0500Body .26 cmKarl Oberer DO Work Phone: 8(399)[address] [place], [place] 6046201-30-2025 12:59-0500 Body mass index (BMI) [Ratio]40 kg/m2Karl Oberer DO Work Phone: 9(215)[address] [place], [place] 6046201-30-2025 12:59-0500 Body zeyvpp533.92 kgKarl Oberer DO Work Phone: 5(344)[address]01-30-2025 12:59-0500 Diastolic blood mm[Hg]Jose Oberer DO Work Phone: 1(849)[address] [place], [place] 6046201-30-2025 12:59-0500 Heart rate91 /minKarl Oberer DO Work Phone: 1(813)[address]01-30-2025 12:59-0500 Respiratory rate18 /minKarl Oberer DO Work Phone: 1(357)[address] [place], [place] 6046201-30-2025 12:59-0500 SaO2% (BldA) [Mass fraction]95 %Jose Oberer DO Work Phone: 1(317)[address] [place], [place] 6046201-30-2025 12:59-0500 Systolic blood aigaixyt736 mm[Hg]Jose Oberer DO Work Phone: 7(233)[address] [place], [place] 6046201-24-2025 10:08-0500 Body bjynlw045.5 cmDanisha Bran MD Work Phone: 1(241)511-[address] [place], [place] 8535401-24-2025 10:08-0500 Body mass index (BMI) [Ratio]39.3 kg/j0HkbmvqfDanisha Bran MD Work Phone: 1(213)[address]01-24-2025 10:08-0500 Body wnawij938.47 kgDanisha Bran MD Work Phone: 1(732)[address]01-24-2025 10:08-0500 Diastolic blood fenzrdei43 mm[Hg]Danisha Bran MD Work Phone: 1(035)[address]01-24-2025 10:08-0500 Heart rate88 /minDanisha Bran MD Work Phone: 1(647)[address]01-24-2025 10:08-0500 Systolic blood znwhyxyz754 mm[Hg]Danisha Bran MD Work Phone: 1(523)282-[address] [place], [place] 8535401-22-2025 12:53-0500 Body .5 cmLoyda Steele MD Work Phone: [facility]01-22-2025 12:53-0500Body mass index (BMI) [Ratio]39.21 kg/z9FlkwzlLoyda Steele MD Work Phone: [facility]01-22-2025 12:53-0500Body wfvote724.2 kgLoyda Steele MD Work Phone: [facility]01-22-2025 12:53-0500Diastolic blood mm[Hg]Loyda Steele MD Work Phone: [facility]01-22-2025 12:53-0500Heart rate93 /min Loyda Steele MD Work Phone: [facility]01-22-2025 12:53-0500Systolic blood rzyyuqha954 mm[Hg]Loyda Steele MD Work Phone: [facility]01-15-2025 09:55-0500Body mass index (BMI) [Ratio]39.28 kg/h7Tgcqzvsksal Hassett DO Work Phone: [facility] HospitalHtofjdzdgu90-92-0735 09:55-0500Body tayzck793.66 kgChristopher Alli DO Work Phone: 1(738)860-[address] [place], [place] [address]Pxijscehyf68-43-2008 09:55-0500Diastolic blood nuxcepwe85 mm[Hg]Kg Carson DO Work Phone: 1(216)473-[address] [place], [place] [address]Jiylrypqcz27-34-0122 09:55-0500Heart rate92 /min Kg Carson DO Work Phone: 1(963)859-[address] [place], [place] [address]Oaalmoykle34-34-6996 09:55-2862JeE2% (BldA) [Mass fraction]95 %Christshaniqua Carson DO Work Phone: 1(536)960-[address] [place], [place] [address]Iejofjrfha17-53-7325 09:55-0500Systolic blood mm[Hg]Kg Carson DO Work Phone: 1(536)560-[address] [place], [place] [address]Mubrufklkb09-86-0149 12:53-0500Body .3 cmSliane Rodriges MD Work Phone: 1(601)684-[address] [place], [place] [address]Dacuubzoqh98-42-9315 12:53-0500Body mass index (BMI) [Ratio]38.54 kg/q7RlsrwtSe Rodriges MD Work Phone: 1(406)065-[address] [place], [place] [address]Zpmrusgusf73-65-7883 12:53-0500Body tpdsno637.39 kgSe Rodriges MD Work Phone: 1(168)856-[address] [place], [place] [address]Amyghsrkij39-62-2723 12:53-0500Diastolic blood lyrvusxp29 mm[Hg]Se Rodriges MD Work Phone: 1(159)089-[address] [place], [place] [address]Ohddnspaxq81-16-4557 12:53-0500Systolic blood tyyqwpuu630 mm[Hg]Se Rodriges MD Work Phone: 1(843)887-[address] [place] [address]-20-2024 10:30-0500Body zudtpy516.26 cmKarl Oberer DO Work Phone: 1(443)[address] [place], [place] 6046211-20-2024 10:30-0500 Body mass index (BMI) [Ratio]38.7 kg/m2Karl Oberer DO Work Phone: 1(490)[address] [place], [place] 6046211-20-2024 10:30-0500 Body ziuuug014.03 kgKarl Oberer DO Work Phone: 1(642)[address] [place], [place] 6046211-20-2024 10:30-0500 Diastolic blood mznurdzx53 mm[Hg]Jose Oberer DO Work Phone: 1(481)[address] [place], [place] 6046211-20-2024 10:30-0500 Heart rate91 /minKarl Oberer DO Work Phone: 1(057)[address] [place], [place] 6046211-20-2024 10:30-0500 Respiratory rate18 /minKarl Oberer DO Work Phone: 1(982)[address] [place], [place] 6046211-20-2024 10:30-0500 SaO2% (BldA) [Mass fraction]97 %Jose Oberer DO Work Phone: 1(076)[address] [place], [place] 6046211-20-2024 10:30-0500 Systolic blood zaubtpqx315 mm[Hg]Jose Oberer DO Work Phone: 1(267)[address] [place], [place] 6046211-08-2024 08:26-0500 Body ivlpxi692.26 cmKarl Oberer DO Work Phone: 1(976)[address] [place], [place] 6046211-08-2024 08:26-0500 Body mass index (BMI) [Ratio]39.3 kg/m2Karl Oberer DO Work Phone: 1(145)[address] [place], [place] 6046211-08-2024 08:26-0500 Body .2 [degF]Jose Oberer DO Work Phone: 1(162)[address] [place], [place] 6046211-08-2024 08:26-0500 Body ppiefr678.85 kgKarl Oberer DO Work Phone: 1(658)[address]11-08-2024 08:26-0500 Diastolic blood yhhbqwvg33 mm[Hg]Jose Oberer DO Work Phone: 1(002)[address] [place], [place] 6046211-08-2024 08:26-0500 Heart rate70 /minKarl Oberer DO Work Phone: 1(066)[address] [place], [place] 6046211-08-2024 08:26-0500 Respiratory rate18 /minKarl Oberer DO Work Phone: 1(333)[address] [place], [place] 6046211-08-2024 08:26-0500 SaO2% (BldA) [Mass fraction]96 %Jose Oberer DO Work Phone: 1(902)[address] [place], [place] 6046211-08-2024 08:26-0500 Systolic blood mm[Hg]Jose Oberer DO Work Phone: 1(933)[address] [place], [place] 6046208-20-2024 08:14-0400 Body isxycn656.3 cmAzaki Rodriguez PA Work Phone: [facility] HospitalNoisczwfyx19-68-1652 08:14-0400Body mass index (BMI) [Ratio]39.43 kg/m2Ewa EUBANKS Work Phone: [facility] HospitalUiisvayghe03-53-3889 08:14-0400Body hanuoc057.11 kgEwa Rodriguez PA Work Phone: [facility] HospitalRlmspqyjyo85-41-1333 08:14-0400Diastolic blood eibnmbqv81 mm[Hg]Ewa EUBANKS Work Phone: [facility] HospitalCpyhnugeuj40-57-4343 08:14-0400Heart rate81 /min Ewa EUBANKS Work Phone: [facility] LouisYwlsztejol21-20-4271 08:14-0400Respiratory rate16 /minEwa Rodriguez PA Work Phone: [facility] HospitalGdksgqowve79-38-3029 08:14-0978EzJ3% (BldA) [Mass fraction]94 %Ewa EUBANKS Work Phone: [facility] HospitalIrcothgzem24-20-8048 08:14-0400Systolic blood mm[Hg]Ewa Rodriguez PA Work Phone: [facility] HospitalOqbjihmwwh67-62-3815 10:23-0400Body oayujz664.26 cmDO Jose Oberer Work Phone: 1(812)[address] [place], [place] 6046208-05-2024 10:23-0400 Body mass index (BMI) [Ratio]38.8 kg/m2DO Jose Oberer Work Phone: 1(153)[address] [place], [place] 6046208-05-2024 10:23-0400 Body jmtzud231.29 kgDO Jose Oberer Work Phone: 1(322)[address] [place], [place] 6046208-05-2024 10:23-0400 Diastolic blood mm[Hg]DO Jose Oberer Work Phone: 1(112)[address] [place], [place] 6046208-05-2024 10:23-0400 Heart rate79 /minDO Jose Oberer Work Phone: 1(076)[address] [place], [place] 6046208-05-2024 10:23-0400 SaO2% (BldA) [Mass fraction]95 %DO Jose Oberer Work Phone: 5(198)[address] [place], [place] 6046208-05-2024 10:23-0400 Systolic blood mm[Hg]DO Jose Oberer Work Phone: 1(631)[address] [place], [place] 6046207-30-2024 13:21-0400 Body .18 cmDO Jose Oberer Work Phone: 1(921)[address] [place], [place] 6046207-30-2024 13:21-0400 Body mass index (BMI) [Ratio]41.5 kg/m2DO Jose Oberer Work Phone: 9(358)[address] [place], [place] 6046207-30-2024 13:21-0400 Body ecihyztvdjp52.9 [degF]DO Jose Oberer Work Phone: 4(337)[address] [place], [place] 6046207-30-2024 13:21-0400 Body rndzyp717.4 kgDO Jose Oberer Work Phone: 1(498)[address] [place], [place] 6046207-30-2024 13:21-0400 Diastolic blood hepkqwxv05 mm[Hg]DO Jose Oberer Work Phone: 1(493)[address] [place], [place] 6046207-30-2024 13:21-0400 Heart rate87 /minDO Jose Oberer Work Phone: 1(684)[address] [place], [place] 6046207-30-2024 13:21-0400 Respiratory rate16 /minDO Jose Oberer Work Phone: 1(937)[address] [place], [place] 6046207-30-2024 13:21-0400 SaO2% (BldA) [Mass fraction]93 %DO Jose Oberer Work Phone: 1(134)[address] [place], [place] 6046207-30-2024 13:21-0400 Systolic blood nfeiafjx264 mm[Hg]DO Jose Oberer Work Phone: 1(268)[address] [place], [place] 6046206-13-2024 13:16-0400 Body jnjueg571.18 cmDO Jose Oberer Work Phone: 1(404)[address] [place], [place] 6046206-13-2024 13:16-0400 Body mass index (BMI) [Ratio]40.9 kg/m2DO Jose Oberer Work Phone: 1(602)[address] [place], [place] 6046206-13-2024 13:16-0400 Body joixvl023.52 kgDO Jose Oberer Work Phone: 1(339)[address] [place], [place] 6046206-13-2024 13:16-0400 Diastolic blood hwemvzom12 mm[Hg]DO Jose Oberer Work Phone: 1(401)[address] [place], [place] 6046206-13-2024 13:16-0400 Heart rate82 /minDO Jose Oberer Work Phone: 1(717)[address] [place], [place] 6046206-13-2024 13:16-0400 Respiratory rate18 /minDO Jose Oberer Work Phone: 1(426)[address] [place], [place] 6046206-13-2024 13:16-0400 SaO2% (BldA) [Mass fraction]94 %DO Jose Oberer Work Phone: 1(527)[address] [place], [place] 6046206-13-2024 13:16-0400 Systolic blood wrniebsk021 mm[Hg]DO Jose Oberer Work Phone: 1(199)[address] [place], [place] 6046205-03-2024 09:07-0400 Body rgopis816.18 cmDO Jose Oberer Work Phone: 1(667)[address] [place], [place] 6046205-03-2024 09:07-0400 Body mass index (BMI) [Ratio]42 kg/m2DO Jose Oberer Work Phone: 1(943)[address] [place], [place] 6046205-03-2024 09:07-0400 Body xgadzpizlkh37.1 [degF]DO Jose Oberer Work Phone: 1(697)[address] [place], [place] 6046205-03-2024 09:07-0400 Body qwzsun505.67 kgDO Jose Oberer Work Phone: 1(454)[address] [place], [place] 6046205-03-2024 09:07-0400 Diastolic blood pfococvt99 mm[Hg]DO Jose Oberer Work Phone: 1(533)[address] [place], [place] 6046205-03-2024 09:07-0400 Heart rate77 /minDO Jose Oberer Work Phone: 1(533)[address] [place], [place] 6046205-03-2024 09:07-0400 Respiratory rate16 /minDO Jose Oberer Work Phone: 1(138)[address] [place], [place] 6046205-03-2024 09:07-0400 SaO2% (BldA) [Mass fraction]93 %DO Jose Oberer Work Phone: 1(826)[address] [place], [place] 6046205-03-2024 09:07-0400 Systolic blood zgfuqkvw386 mm[Hg]DO Jsoe Oberer Work Phone: 1(037)[address] [place], [place] 6046204-04-2024 13:52-0400 Body ybozbc865.18 cmDO Jose Oberer Work Phone: 1(622)[address] [place], [place] 6046204-04-2024 13:52-0400 Body mass index (BMI) [Ratio]43.7 kg/m2DO Jose Oberer Work Phone: 1(777)[address] [place], [place] 6046204-04-2024 13:52-0400 Body .55 kgDO Jose Oberer Work Phone: 1(130)[address] [place], [place] 6046204-04-2024 13:52-0400 Diastolic blood gehzmyfn35 mm[Hg]DO Jose Oberer Work Phone: 1(492)[address] [place], [place] 6046204-04-2024 13:52-0400 Heart rate91 /minDO Jose Oberer Work Phone: 1(324)[address] [place], [place] 6046204-04-2024 13:52-0400 Respiratory rate18 /minDO Jose Oberer Work Phone: 1(000)[address] [place], [place] 6046204-04-2024 13:52-0400 SaO2% (BldA) [Mass fraction]95 %DO Jose Oberer Work Phone: 1(745)[address] [place], [place] 6046204-04-2024 13:52-0400 Systolic blood qofdilia403 mm[Hg]DO Jose Oberer Work Phone: 1(640)[address] [place], [place] 6046204-01-2024 11:37-0400 Body mass index (BMI) [Ratio]43.4 kg/m2DO Jose Oberer Work Phone: 1(940)[address] [place], [place] 6046204-01-2024 10:51-0400 Body tulqlq463.18 cmDO Jose Oberer Work Phone: 1(149)[address] [place], [place] 6046204-01-2024 10:51-0400 Body muzscn399.64 kgDO Jose Oberer Work Phone: 1(951)[address] [place], [place] 6046203-01-2024 11:01-0500 Body wzrmeh625.5 cmDanisha Bran MD Work Phone: [facility]03-01-2024 11:01-0500 Body mass index (BMI) [Ratio]40.7 kg/p5UysbqmyDanisha Bran MD Work Phone: 5(468)690-56[facility]03-01-2024 11:01-0500 Body fkavpo575.83 kgDanisha Bran MD Work Phone: 1(149)986-[address] [place], [place] 8535403-01-2024 11:01-0500 Diastolic blood mm[Hg]Danisha Bran MD Work Phone: 1(148)639-[address] [place], [place] 8535403-01-2024 11:01-0500 Heart rate80 /minDanisha Bran MD Work Phone: 9(110)[address]03-01-2024 11:01-0500 Systolic blood vjaaywvp497 mm[Hg]Danisha Bran MD Work Phone: 6(137)465-12[facility]02-28-2024 09:20-0500 Body .53 cmDO Jose Oberer Work Phone: 1(312)[address]02-28-2024 09:20-0500 Body mass index (BMI) [Ratio]39.6 kg/m2DO Jose Oberer Work Phone: 1(866)[address] [place], [place] 6046202-28-2024 09:20-0500 Body almggt662.37 kgDO Jose Oberer Work Phone: 8(023)760-[address] [place], [place] 7362702-21-2024 13:34-0500 Diastolic blood ukxjzydj59 mm[Hg]DO Jose Oberer Work Phone: 6(949)899-[address] [place], [place] 7362702-21-2024 13:34-0500 Heart rate78 /minDO Jose Oberer Work Phone: 6(169)847-[address] [place], [place] 7362702-21-2024 13:34-0500 Respiratory rate16 /minDO Jose Oberer Work Phone: 3(714)239-[address] [place], [place] 7362702-21-2024 13:34-0500 SaO2% (BldA) [Mass fraction]96 %DO Jose Oberer Work Phone: 1(909)220-[address] [place], [place] 7362702-21-2024 13:34-0500 Systolic blood jkkobcsv756 mm[Hg]DO Jose Oberer Work Phone: 1(771)[address] [place], [place] 6046202-21-2024 11:59-0500 Body .53 cmDO Jose Oberer Work Phone: [phone] [place], [place] 7362702-21-2024 11:59-0500 Body dwpaeg888.37 kgDO Jose Oberer Work Phone: [phone]02-01-2024 14:00-0500 Body xkxdau034.18 cmKarl Oberer Other [address]02-01-2024 14:00-0500 Body mass index (BMI) [Ratio]43.35 kg/m2Karl Oberer Other [employer] [employer] Other Phone: [phone] 14:00-0500Body feuqyqpbarq33.6 [degF]Jose Oberer Other [facility] [employer] Other [id number] 14:00-0500Body rnozqu621.56 kgKarl Oberer Other [facility] [employer] Other [id number] 14:00-0500Body .55 kgDO Jose Oberer Work Phone: [phone] [place], [place] 7362702-01-2024 14:00-0500 Diastolic blood lbtfmexe66 mm[Hg]Jose Oberer Other [address] [place], [place] 7362702-01-2024 14:00-0500 Respiratory rate18 /minKarl Oberer Other [facility] [employer] Other [id number] 14:00-9122XzF8% (BldA) [Mass fraction]94 % [facility] Other 02-01-2024 14:00-0500Systolic blood mm[Hg] Jose Oberer Other [facility]01-18-2024 13:15-0500 Body kteakz573.18 cmLawrensteve Soto Other [facility]01-18-2024 13:15-0500 Body mass index (BMI) [Ratio]42.91 kg/t0Gfhiixaegeovanni Soto Other [facility] [employer] Other 01-18-2024 13:15-0500Body .29 kgLageovanni Soto Other [facility] [employer] Other 01-18-2024 13:15-0500Body ogazye031.28 kgDO Jose Oberer Work Phone: [facility]01-15-2024 12:45-0500 Body ylkvun631.18 cmRafael Holbrook Other [facility]01-15-2024 12:45-0500 Body mass index (BMI) [Ratio]42.93 kg/l7UtulrgRafael Holbrook [facility] Other 01-15-2024 12:45-0500Body lzorxo837.33 kgRafael Holbrook Other [facility] [employer] Other 01-15-2024 12:45-0500Body iyemjw955.32 kgDO Jose Oberer Work Phone: [facility]01-15-2024 12:45-0500 Diastolic blood coynavgn90 mm[Hg]Rafael Holbrook Other [facility]01-15-2024 12:45-0500 Respiratory rate18 /minDshun Holbrook Other [facility] [employer] Other 01-15-2024 12:45-0120BsH8% (BldA) [Mass fraction]95 % Rafael Holbrook Other [facility] [employer] Other 01-15-2024 12:45-0500Systolic blood calejuxi690 mm[Hg] Raafel Montalvodiff Other [facility]01-09-2024 11:15-0500 Body pratvd359.18 cmDawn Fitt Other [facility]12-21-2023 08:00-0500 Body .18 cmDawn Fitt Other [facility]12-21-2023 08:00-0500 Body mass index (BMI) [Ratio]43.47 kg/m2Dawn Fitt Other [facility] [employer] Other 12-21-2023 08:00-0500Body .92 kgDawn Fitt [facility] Other 12-21-2023 08:00-0500Body .91 kgDO Jose Oberer Work Phone: [facility]11-02-2023 08:00-0400 Body epbfjx903.18 cmDawn Fitt Other [employer] Other 11-02-2023 08:00-0400Body mass index (BMI) [Ratio] 44.18 kg/m2Dawn Fitt Other [employer] Other 11-02-2023 08:00-0400Body lpulhq979.96 kgDawn Fitt Other [employer] Other 10-19-2023 13:00-0400Body vjmutn623.18 cmRafael Holbrook Other [employer] Other 10-19-2023 13:00-0400Body mass index (BMI) [Ratio] 43.13 kg/u6HlafsoRafael Holbrook Other [employer] Other 10-19-2023 13:00-0400Body yvspvr217.92 kgRafael Holbrook Other [employer] Other 10-19-2023 13:00-0400Diastolic blood kqniiqay47 mm[Hg] Rafael Holbrook Other [employer] Other 10-19-2023 13:00-0400Respiratory rate18 /Princess Holbrook Other [employer] Other 10-19-2023 13:00-6545DfA5% (BldA) [Mass fraction]94 % Rafael Holbrook Other [employer] Other 10-19-2023 13:00-0400Systolic blood dgsetyxl746 mm[Hg] Rafael Holbrook Other [employer] Other 10-10-2023 10:45-0400Body puqzqj757.18 cmJose Oberer Other [employer] Other 10-10-2023 10:45-0400Body mass index (BMI) [Ratio] 43.58 kg/m2Karl Oberer Other [employer] Other 10-10-2023 10:45-0400Body rlquubcprah02.3 [degF]Jose Oberer Other [employer] Other 10-10-2023 10:45-0400Body .24 kgKarl Oberer Other [employer] Other 10-10-2023 10:45-0400Diastolic blood mpjezseh02 mm[Hg] Jose Oberer Other [employer] Other 10-10-2023 10:45-0400Respiratory rate18 /minKarl Oberer Other [employer] Other 10-10-2023 10:45-5397JkV9% (BldA) [Mass fraction]95 % Jose Oberer Other [employer] Other 10-10-2023 10:45-0400Systolic blood mm[Hg] Jose Oberer Other [employer] Other 08-17-2023 12:45-0400Body .18 cmRafael Holbrook Other [employer] Other 08-17-2023 12:45-0400Body mass index (BMI) [Ratio] 42.61 kg/b7KjmkwyRafael Holbrook Other [employer] Other 08-17-2023 12:45-0400Body spfgux433.42 kgRafael Holbrook Other [employer] Other 08-17-2023 12:45-0400Diastolic blood mm[Hg] Rafaelromero Holbrook Other [employer] Other 08-17-2023 12:45-0400Respiratory rate18 /Princess Montalvodiff Other [employer] Other 08-17-2023 12:45-0554EgL7% (BldA) [Mass fraction]90 % Rafael Montalvodiff Other [employer] Other 08-17-2023 12:45-0400Systolic blood mm[Hg] Rafael Montalvodiff Other [employer] Other 07-13-2023 13:00-0400Body woumam195.18 cmDawn Fitt Other [employer] Other 07-13-2023 13:00-0400Body mass index (BMI) [Ratio]43.4 kg/m2Dawn Fitt Other [employer] Other 07-13-2023 13:00-0400Body zxyeme797.69 kgDawn Fitt Other [employer] Other 06-22-2023 11:15-0400Body okwups791.18 cmKarl Oberer Other [employer] Other 06-22-2023 11:15-0400Body mass index (BMI) [Ratio] 44.16 kg/m2Karl Oberer Other [employer] Other 06-22-2023 11:15-0400Body icxaswjnmnr70.8 [degF]Jose Oberer Other [employer] Other 06-22-2023 11:15-0400Body inkavh421.92 kgKarl Oberer Other [employer] Other 06-22-2023 11:15-0400Diastolic blood jidptner87 mm[Hg] Jose Oberer Other [employer] Other 06-22-2023 11:15-0400Respiratory rate18 /minKarl Oberer Other [employer] Other 06-22-2023 11:15-6286EyW1% (BldA) [Mass fraction]96 % Jose Oberer Other [employer] Other 06-22-2023 11:15-0400Systolic blood jmebfdlv980 mm[Hg] Jose Oberer Other [employer] Other 06-20-2023 11:30-0400Body qcbkem902.18 cmRafael Holbrook Other [employer] Other 06-20-2023 11:30-0400Body mass index (BMI) [Ratio] 43.91 kg/r4GzczlvRafael Holbrook Other [employer] Other 06-20-2023 11:30-0400Body hgkuhj924.19 kgRafael Holbrook Other [employer] Other 06-20-2023 11:30-0400Diastolic blood mm[Hg] Rafael Holbrook Other [employer] Other 06-20-2023 11:30-0400Respiratory rate18 /minDshun Montalvodiff Other [employer] Other 06-20-2023 11:30-9865WoH4% (BldA) [Mass fraction]94 % Rafael Montalvodiff Other [employer] Other 06-20-2023 11:30-0400Systolic blood mm[Hg] Rafaelromero Montalvodiff Other [employer] Other 05-03-2023 14:15-0400Body ufiuqy322.18 cmSolisromero Montalvodiff Other [employer] Other 05-03-2023 14:15-0400Body mass index (BMI) [Ratio] 44.48 kg/l9Zbxcfr Yusef Other [employer] Other 05-03-2023 14:15-0400Body vsxukm673.82 kgSolisromero Holbrook Other [employer] Other 05-03-2023 14:15-0400Diastolic blood kvzdwidq06 mm[Hg] Rafael Yusef Other [employer] Other 05-03-2023 14:15-0400Respiratory rate18 /Princess Montalvodiff Other [employer] Other 05-03-2023 14:15-5597EjP2% (BldA) [Mass fraction]90 % Rafael Holbrook Other [employer] Other 05-03-2023 14:15-0400Systolic blood tizbwsev998 mm[Hg] Rafael Holbrook [facility] [employer] Other 04-28-2023 11:39-0400Body vawmno054.26 cmKarl L Oberer Work Phone: [id number]-Lgcvm [facility] DO Work Phone: 1(769) 367-869604-28-2023 11:39-0400Body mass index (BMI) [Ratio] 41.94 kg/m2Karl L Oberer Work Phone: mp211-3022FU[facility] Work Phone: 1(702) 401-638804-28-2023 11:39-0400Body surface area Derived from formula2.4 m2Karl L Oberer Work Phone: mp232-7936BV-Mlsly [facility] DO Work Phone: 1(199) 447-763604-28-2023 11:39-0400Body .82 kgKarl L Oberer Work Phone: mp681-3087YP-Iftvu [facility] DO Work Phone: 1(727) 276-136204-28-2023 11:39-0400Diastolic blood egwxlfqr66 mm[Hg] Jose L Oberer Work Phone: mp602-7022RS-Dxndy [facility] DO Work Phone: 1(920) 246-852204-28-2023 11:39-0400Heart rate68 /minKarl L Oberer Work Phone: mp599-8073YE-Kukah [facility] DO Work Phone: 1(688) 794-106504-28-2023 11:39-0400Systolic blood mm[Hg] Jose L Oberer Work Phone: mp414-1793RE-Wjimg [facility] DO Work Phone: 1(927) 589-437904-25-2023 09:15-0400Body wyjgru678.18 cmDawn Fitt Other [employer] Other 04-13-2023 14:15-0400Body qraobz554.18 cmKarl Oberer Other [employer] Other 04-13-2023 14:15-0400Body mass index (BMI) [Ratio] 45.01 kg/m2Karl Oberer Other [employer] Other 04-13-2023 14:15-0400Body .6 [degF]Jose Oberer Other [employer] Other 04-13-2023 14:15-0400Body .36 kgKarl Oberer Other [employer] Other 04-13-2023 14:15-0400Diastolic blood ygrcbuvp84 mm[Hg] Jose Oberer Other [employer] Other 04-13-2023 14:15-0400Respiratory rate18 /minKarl Oberer Other [employer] Other 04-13-2023 14:15-3303KwW7% (BldA) [Mass fraction]94 % Jose Oberer Other [employer] Other 04-13-2023 14:15-0400Systolic blood pzvyvfbp576 mm[Hg] Jose Oberer Other [employer] Other 03-29-2023 11:30-0400Body .18 cmJustin Thu Other [employer] Other 03-29-2023 11:30-0400Body mass index (BMI) [Ratio] 45.76 kg/k7Mziauushannon Andino Other [employer] Other 03-29-2023 11:30-0400Body exmnmb168.54 kgJushannon Andino Other [employer] Other 03-08-2023 12:12-0500Diastolic blood mm[Hg] DO Jose Oberer Work Phone: [phone]03-08-2023 12:12-0500 Heart rate77 /minDO Jose Oberer Work Phone: 2(668)[address]03-08-2023 12:12-0500 Respiratory rate18 /minDO Jose Oberer Work Phone: 1(194)[address]03-08-2023 12:12-0500 SaO2% (BldA) [Mass fraction]94 %DO Jose Oberer Work Phone: [phone])170-79[facility]03-08-2023 12:12-0500 Systolic blood fkumxicy314 mm[Hg]DO Jose Oberer Work Phone: 1(965)[facility]22[facility]03-08-2023 10:04-0500 Body usdfhk078.26 cmDO Jose Oberer Work Phone: [phone]03-08-2023 10:04-0500 Body onwmndvomlw58.9 [degF]DO Jose Oberer Work Phone: 6(472)739-[address] [place], [place] 7362703-08-2023 10:04-0500 Body kgDO Jose Oberer Work Phone: 8(447)328-[address] [place], [place] 7362702-27-2023 15:00-0500 Body hptdee819.18 cmRafael Holbrook Other [employer] Other 02-27-2023 15:00-0500Body mass index (BMI) [Ratio]46.4 kg/c5ZflimjRafael Montalvodiff Other [employer] Other 02-27-2023 15:00-0500Body wflkao033.4 kgRafael Holbrook Other [employer] Other 02-27-2023 15:00-0500Diastolic blood mm[Hg] Rafael Montalvodiff Other [employer] Other 02-27-2023 15:00-0500Respiratory rate20 /minDshun Montalvodiff Other [employer] Other 02-27-2023 15:00-0308RlT7% (BldA) [Mass fraction]93 % Rafael Montalvodiff Other [employer] Other 02-27-2023 15:00-0500Systolic blood oefbkqwt709 mm[Hg] Rafael Montalvodiff Other [employer] Other 02-24-2023 13:45-0500Body ymeyim076.18 cmKarl Oberer Other [employer] Other 02-24-2023 13:45-0500Body mass index (BMI) [Ratio] 46.14 kg/m2Karl Oberer Other [employer] Other 02-24-2023 13:45-0500Body chhawnonpgd74 [degF]Jose Oberer Other [employer] Other 02-24-2023 13:45-0500Body vaiclx075.63 kgKarl Oberer Other [employer] Other 02-24-2023 13:45-0500Diastolic blood bnbjuzsk98 mm[Hg] Jose Oberer Other [employer] Other 02-24-2023 13:45-0500Respiratory rate20 /minKarl Oberer Other [employer] Other 02-24-2023 13:45-3021MwE7% (BldA) [Mass fraction]95 % Jose Oberer Other [employer] Other 02-24-2023 13:45-0500Systolic blood mm[Hg] Jose Oberer Other [employer] Other 01-20-2023 10:15-0500Body gdavpd397.18 cmHeather Missler Other [employer] Other 01-20-2023 10:15-0500Body mass index (BMI) [Ratio] 47.62 kg/z5Fjrgdyh Missler Other [employer] Other 01-20-2023 10:15-0500Body qsoeth575.94 kgHeather Missler Other [employer] Other 01-20-2023 10:15-0500Diastolic blood ofgnzhgt25 mm[Hg] Alise Missler Other [employer] Other 01-20-2023 10:15-0500Respiratory rate18 /minHeather Missler Other [employer] Other 01-20-2023 10:15-6969RpJ8% (BldA) [Mass fraction]96 % Alise Renteria Other [employer] Other 01-20-2023 10:15-0500Systolic blood skqgkekc386 mm[Hg] Alise Renteria Other [employer] Other 01-18-2023 16:08-0500Body exwayp119.26 cmKarl L Oberer Work Phone: mp609-8483HH-Likdp [place] [facility] DO Work Phone: 1(698) 156-522701-18-2023 16:08-0500Body mass index (BMI) [Ratio]45.1 kg/m2Karl L Oberer Work Phone: mp983-9990QN-Kylmu [facility] DO Work Phone: 1(182) 990-474501-18-2023 16:08-0500Body surface area Derived from formula2.47 m2Karl L Oberer Work Phone: mp417-0932TU-Roeyu [facility] DO Work Phone: 1(197) 612-564401-18-2023 16:08-0500Body .52 kgKarl L Oberer Work Phone: mp039-7115PR-Nyfqw [facility] DO Work Phone: 1(313) 580-440601-18-2023 16:08-0500Diastolic blood vnqjmubl13 mm[Hg] Jose L Oberer Work Phone: mp915-1560FH-Ambzc [facility] DO Work Phone: 1(447) 645-421801-18-2023 16:08-0500Heart rate86 /minKarl L Oberer Work Phone: mp747-3924FW-Nqmge [facility] DO Work Phone: 1(791) 399-222001-18-2023 16:08-0500Systolic blood edynjzqc441 mm[Hg] Jose L Oberer Work Phone: 1(340) 210-3289795-4263PH-Yafbp [facility] DO Work Phone: 1(633) 428-992212-19-2022 15:30-0500Diastolic blood emmhaoby33 mm[Hg] DO Jose Oberer Work Phone: 1(835)[address]12-19-2022 15:30-0500 Heart rate94 /minDO Jose Oberer Work Phone: 1(089)[address]12-19-2022 15:30-0500 Respiratory rate20 /minDO Jose Oberer Work Phone: 1(464)[address]12-19-2022 15:30-0500 SaO2% (BldA) [Mass fraction]93 %DO Jose Oberer Work Phone: 1(883)[address]45 [address]12-19-2022 15:30-0500 Systolic blood abawkxfa039 mm[Hg]DO Jose Oberer Work Phone: 1(421)[address]12-19-2022 14:22-0500 Body .2 [degF]DO Jose Oberer Work Phone: 1(732)[address]45 [address]12-19-2022 14:22-0500 Inhaled oxygen flow rate10 L/minDO Jose Oberer Work Phone: 1(489)60845 [address]12-19-2022 12:28-0500 Body fhydbr260.26 cmDO Jose Oberer Work Phone: 1([phone])[address]12-19-2022 12:28-0500 Body mass index (BMI) [Ratio]43.4 kg/m2DO Jose Oberer Work Phone: [phone])[address]45 [address]12-19-2022 12:28-0500 Body .6 kgDO Jose Oberer Work Phone: 1(517)28845 [address]11-29-2022 14:15-0500 Body cwnmpa435.8 cmKarl Oberer Other [employer] Other 11-29-2022 14:15-0500Body mass index (BMI) [Ratio] 41.99 kg/m2Karl Oberer Other [employer] Other 11-29-2022 14:15-0500Body .2 [degF]Jose Oberer Other [employer] Other 11-29-2022 14:15-0500Body nwomwo246.77 kgKarl Oberer Other [employer] Other 11-29-2022 14:15-0500Diastolic blood uusdmhbz02 mm[Hg] Jose Oberer Other [employer] Other 11-29-2022 14:15-0500Respiratory rate18 /minKarl Oberer Other [employer] Other 11-29-2022 14:15-6564UzW6% (BldA) [Mass fraction]97 % Jose Oberer Other [employer] Other 11-29-2022 14:15-0500Systolic blood menehtry727 mm[Hg] Jose Oberer Other [employer] Other 11-08-2022 12:00-0500Body xgfdqizspvb44.9 [degF]L[employer]CHRO[employer] MOTHER Fernanda Graham Work Phone: [facility]11-08-2022 12:00-0500 Diastolic blood bpuvflrk51 mm[Hg]LUNCHROOM MOTHER Fernanda Graham Work Phone: [facility]11-08-2022 12:00-0500 Heart rate79 /minNP Fernanda Graham Work Phone: 1(055)549-[address] [place], [place] 5496211-08-2022 12:00-0500 Respiratory rate18 /minNP Fernanda Graham Work Phone: [phone] [place], [place] 9250411-08-2022 12:00-0500 SaO2% (BldA) [Mass fraction]93 %[employer] MOTHER Fernanda Graham Work Phone: 1(631)[address] [place], [place] 7756011-08-2022 12:00-0500 Systolic blood kylqnzwo773 mm[Hg]LUNCHROOM MOTHER Fernanda Graham Work Phone: 1(822)[address] [place], [place] 7756011-08-2022 09:50-0500 Body hvaknk355.26 cmNP Fernanda Graham Work Phone: 1(661)[address] [place], [place] 7756011-08-2022 06:34-0500 Body tbavlp051.8 kgNP Fernanda Graham Work Phone: 1(593)[address] [place], [place] 7756011-05-2022 19:00-0400 Diastolic blood pwtqpcce325 mm[Hg]L[employer]RO[employer] MOTHER Fernanda Graham Work Phone: 1(292)[address] [place], [place] 7756011-05-2022 19:00-0400 Heart rate65 /minNP Fernanda Graham Work Phone: 1(552)[address] [place], [place] 7756011-05-2022 19:00-0400 Respiratory rate18 /minNP Fernanda Graham Work Phone: 1(431)[address] [place], [place] 7756011-05-2022 19:00-0400 SaO2% (BldA) [Mass fraction]99 %[employer]HER Fernanda Graham Work Phone: 1(423)[address] [place], [place] 7756011-05-2022 19:00-0400 Systolic blood ogdglwyw975 mm[Hg]LUN[employer]RO[employer] MOTHER Fernnada Graham Work Phone: 1(900)[address] [place], [place] 7756011-05-2022 14:45-0400 Body brotzs777.8 cmNP Fernanda Graham Work Phone: 1(724)[address] [place], [place] 7756011-05-2022 14:45-0400 Body jnlxggknnyl53.6 [degF]L[employer]RO[employer] MOTHER Fernanda Graham Work Phone: [facility]11-05-2022 14:45-0400 Body jqywyk441 kgNP Fernanda Graham Work Phone: [facility]10-14-2022 09:00-0400 Body ccinbn910.8 cmKarl Oberer Other [employer] Other [id number] 09:00-0400Body mass index (BMI) [Ratio] 41.71 kg/m2Karl Oberer Other [employer] Other 10-14-2022 09:00-0400Body dntwtypybjl89.5 [degF]Jose Oberer Other [employer] Other [id number] 09:00-0400Body otptrj706.86 kgKarl Oberer Other [employer] Other 10-14-2022 09:00-0400Diastolic blood zofncuut24 mm[Hg] Jose Oberer Other [employer] Other 10-14-2022 09:00-0400Respiratory rate20 /minKarl Oberer Other [employer] Other 10-14-2022 09:00-7247WfT4% (BldA) [Mass fraction]96 % Jose Oberer Other [employer] Other 10-14-2022 09:00-0400Systolic blood edhijsfi153 mm[Hg] Jose Oberer Other [employer] Other 10-12-2022 12:59-0400Body xpqxyzudcta25.8 [degF] Laura Strine PA-C Work Phone: [place] Fvihhs74-87-6684 10:30-0400Body .8 cmPegdenys Graham Other [employer] Other 08-30-2022 10:30-0400Body mass index (BMI) [Ratio] 39.74 kg/k3Hsrec Graham Other [employer] Other 08-30-2022 10:30-0400Body jcgupemfgvk95.5 [degF]Fernanda Graham Other [employer] Other 08-30-2022 10:30-0400Body fhvdoy782.65 kgPeggy Graham Other [employer] Other 08-30-2022 10:30-0400Diastolic blood mm[Hg] Fernanda Graham Other [employer] Other 08-30-2022 10:30-6509GfF2% (BldA) [Mass fraction]77 % Fernanda Graham Other [employer] Other 08-30-2022 10:30-0400Systolic blood cmijgvut095 mm[Hg] Fernanda Graham Other [employer] Other 08-18-2022 09:25-0400Body ovziiy180.3 Sanford Cat PA-C Work Phone: [place] Aevugd58-08-2228 09:25-0400Body iqlqwk048.24 kgKevyn Cat PA-C Work Phone: [place] Gbzuof94-14-9568 09:25-0400Diastolic blood vxvmziwz18 mm[Hg]Kevyn EUBANKS-C Work Phone: [place] Fjvfkk98-70-2940 09:25-0400Heart rate71 /min Kevyn Cat PA-C Work Phone: [phone] Ykgnkh17-23-4933 09:25-0400Systolic blood owhlobfw523 mm[Hg]Kevyn Cat PA-C Work Phone: [phone] Ldycdb64-09-8595 11:29-0400Body kifykl477.5 cmCathryn Strine PA-C Work Phone: [phone] Wdtgyr28-51-5623 11:29-0400Body tmngox604.48 kgCathryn Strine PA-C Work Phone: [phone] Nfpvkm48-57-9735 11:29-0400Diastolic blood syudjybj03 mm[Hg]Laura Strine PA-C Work Phone: [phone] Dkqyjv30-74-9928 11:29-0400Heart rate76 /min Laura Strine PA-C Work Phone: [phone] Hqgtje15-13-0590 11:29-0400Systolic blood fzosivqp270 mm[Hg]Laura Strine PA-C Work Phone: [facility] Umepfq77-55-9598 15:00-0400Body ukbsjz221.8 cmKarl Oberer Other [employer] Other 08-02-2022 15:00-0400Body mass index (BMI) [Ratio] 38.41 kg/m2Karl Oberer Other [employer] Other 08-02-2022 15:00-0400Body hkwjypejyrm81.2 [degF]Jose Oberer Other [employer] Other 08-02-2022 15:00-0400Body mdytqd491.43 kgKarl Oberer [facility] [employer] Other 08-02-2022 15:00-0400Diastolic blood lxcpyfen73 mm[Hg] Jose Oberer Other [employer] Other 08-02-2022 15:00-0400Respiratory rate20 /minKarl Oberer Other [employer] Other 08-02-2022 15:00-5693EiE6% (BldA) [Mass fraction]97 % Jose Oberer Other [employer] Other 08-02-2022 15:00-0400Systolic blood djiheozc151 mm[Hg] Jose Oberer Other [employer] Other 06-21-2022 11:15-0400Body .5 cmPacc 4 Work Phone: [facility]06-21-2022 11:15-0400Body temperature 97.59 [degF]Pacc 4 Work Phone: [facility]06-21-2022 11:15-0400Body dabsqg484.48 kgPacc 4 Work Phone: [facility]06-21-2022 11:15-0400Diastolic blood mxonzejy85 mm[Hg]Pacc 4 Work Phone: [facility]06-21-2022 11:15-0400Heart rate98 /min Pacc 4 Work Phone: [facility]06-21-2022 11:15-0400Respiratory rate 20 /minPacc 4 Work Phone: [facility]06-21-2022 11:15-4730EaU2% (BldA) [Mass fraction]97 %Pacc 4 Work Phone: [facility]06-21-2022 11:15-0400Systolic blood jiqlcgew881 mm[Hg]Pacc 4 Work Phone: [facility]05-26-2022 17:45-0400Hourly Rounding [facility]05-26-2022 17:45-0400[facility] 17:43-0400Diastolic blood mm[Hg][facility]05-26-2022 17:43-0400Heart rate94 /[facility]20[facility] 17:43-0400Mean blood jytpsmej40 mm[Hg][facility]05-26-2022 17:43-0400Respiratory rate16 /[facility]26[facility]2022 17:43-7310DeO1% (BldA) [Mass fraction]95 %[facility]05-26-2022 17:43-0400Systolic blood pressure 123 mm[Hg][facility]05-26-2022 16:50-0400 Diastolic blood eoeeqqiu32 mm[Hg][facility] 11-21-2021 16:50-0400Heart rate90 /[facility]2022 16:50-0400Mean blood cefwzdei77 mm[Hg][facility]05-26-2022 16:50-0400Respiratory rate18 /[facility] 16:50-3903QrP0% (BldA) [Mass fraction]97 %[facility]05-26-2022 16:50-0400Systolic blood vvhlgvaj766 mm[Hg][facility]05-26-2022 15:50-0400Heart rate96 /[facility]05-26-2022 15:50-5689BrV9% (BldA) [Mass fraction]99 %[facility]05-26-2022 14:56-0400Diastolic blood mm[Hg][facility]05-26-2022 14:56-0400Heart rate99 /[facility]05-26-2022 14:56-0400Mean blood nzptzmew24 mm[Hg] [facility]05-26-2022 14:56-0400Respiratory rate 16 /[facility]05-26-2022 14:56-0400Systolic blood sixrkspb118 mm[Hg][facility]05-26-2022 13:32-0400Respiratory rate18 /[facility] 11-21-2021 12:47-0400Body jfewkrpbsyc40.78 [degF][facility]05-26-2022 12:47-0400Respiratory rate16 /[facility]05-25-2022 16:00-0400Nursing Progress Note ReasonOther: back to room from [facility]05-25-2022 14:35-0400Body rwrvqbpyopm54.78 [degF][facility]05-25-2022 14:35-0400Heart ugyo105 /[facility]05-09-2022 13:40-0400Body lwfsuzvhxtl25.8 [degF][facility] [id number] 13:40-0400Diastolic blood ylvejben36 mm[Hg] [facility] 05-09-2022 13:40-0400Heart rate74 /[facility] 05-09-2022 13:40-0400Mean blood wyiodjzz55 mm[Hg]Susie Rubio-[facility] 05-09-2022 13:40-0400Respiratory rate17 /minJufely Rubio-[facility] 05-09-2022 13:40-2164WnQ9% (BldA) [Mass fraction]96 % Susie Rubio-[facility] 05-09-2022 13:40-0400Systolic blood eqlnrjfx200 mm[Hg] Susie Rubio-[facility] 04-25-2022 14:07-0400Body iclzjt815.5 cmCRISTA Segundo MD Work Phone: [facility] CenterOhaqfg92-14-4343 14:07-0400Body cdpzio468.92 kgCRISTA Segundo MD Work Phone: [place] [address]-25-2022 14:07-0400Respiratory rate 20 /Long Segundo MD Work Phone: [phone] [address]-13-2022 11:24-0400Body .5 cmLoyda Steele MD Work Phone: [phone] [address]-13-2022 11:24-0400Body temperature 97.3 [degF]Loyda Steele MD Work Phone: [phone] [address]-13-2022 11:24-0400Body .02 kgLoyda Steele MD Work Phone: [place] [address]-13-2022 11:24-0400Diastolic blood frdflksa22 mm[Hg]Loyda Steele MD Work Phone: [place] [id number] 11:24-0400Heart rate78 /min Loyda Steele MD Work Phone: [place] [id number] 11:24-0400Systolic blood oiuvinll442 mm[Hg]Loyda Steele MD Work Phone: [facility] [phone] 16:15-0500Body afileq895.8 cmKarl Oberer Other [employer] Other Phone: [phone] 16:15-0500Body mass index (BMI) [Ratio] 42.73 kg/m2Karl Oberer Other [employer] Other [phone] 16:15-0500Body qjqkwnmlass62.8 [degF]Jose Oberer Other [employer] Other [phone] 16:15-0500Body gmozil786.08 kgKarl Oberer Other [employer] Other Phone: [phone] 16:15-0500Diastolic blood gvvaigtm09 mm[Hg] Jose Oberer Other [employer] Other Phone: [phone] 16:15-0500Respiratory rate16 /minKarl Oberer Other [employer] Other 01-25-2022 16:15-5070ZlF7% (BldA) [Mass fraction]97 % Jose Oberer Other [employer] Other 01-25-2022 16:15-0500Systolic blood icfwzaqv447 mm[Hg] Jose Oberer Other [employer] Other 12-30-2021 10:45-0500Body xihlpr328.8 cmKarl Oberer Other [employer] Other 12-30-2021 10:45-0500Body mass index (BMI) [Ratio]42.7 kg/m2Karl Oberer Other [employer] Other 12-30-2021 10:45-0500Body hsmyanjddqv88.7 [degF]Jose Oberer Other [employer] Other 12-30-2021 10:45-0500Body vpbvle436.99 kgKarl Oberer Other [employer] Other 12-30-2021 10:45-0500Diastolic blood upjwbaap96 mm[Hg] Jose Oberer Other [employer] Other 12-30-2021 10:45-0500Respiratory rate16 /minKarl Oberer Other [employer] Other 12-30-2021 10:45-0618AfQ7% (BldA) [Mass fraction]99 % Jose Oberer Other [employer] Other 12-30-2021 10:45-0500Systolic blood aefhftbf061 mm[Hg] Jose Oberer Other [employer] Other 11-11-2021 10:15-0500Body cpulbn047.8 cmKarl Oberer Other [employer] Other 11-11-2021 10:15-0500Body mass index (BMI) [Ratio] 41.38 kg/m2Karl Oberer Other [employer] Other 11-11-2021 10:15-0500Body lspiruntqhs89 [degF]Jose Oberer Other [employer] Other 11-11-2021 10:15-0500Body iyenrk226.82 kgKarl Oberer Other [employer] Other 11-11-2021 10:15-0500Diastolic blood zosncaoj74 mm[Hg] Jose Oberer Other [employer] Other 11-11-2021 10:15-0500Respiratory rate16 /minKarl Oberer Other [employer] Other 11-11-2021 10:15-9396DuR4% (BldA) [Mass fraction]98 % Jose Oberer Other [employer] Other 11-11-2021 10:15-0500Systolic blood imepsuwe208 mm[Hg] Jose Oberer Other [employer] Other Encounters Encounter DateEncounter TypeCare ProviderFacilityStart: 05-01-2025 End: 66-79-7910xnzdnfsqsjKcma Oberer DO Work Phone: -[facility] [place]Start: 05-01-2025 End: 79-06-2470Ejtwgbd encounter procedureKarl L Oberer DO-[facility] [place] Work Phone: Start: 04-24-2025 End: 70-65-1410mjbivzexhxNbfe Oberer DO Work Phone: [phone]-Lojgagmrd Health NeurologyStart: 04-24-2025 End: 73-80-4796Kocfkfx encounter procedureChristopher Alli Sandoval [facility] Work Phone: Start: 04-18-2025 End: 78-04-2094Qfkwxcb encounter procedureKarl L Oberer DO-[facility]tart: 04-18-2025 End: 61-78-6734cbgbcbbxkzTydu Oberer DO Work Phone: -[facility] CenterStart: 04-18-2025 End: 70-41-9473gdojvggqkgCtel Oberer DO Work Phone: [phone]-Vnohkjhmk Health NeurologyStart: 04-18-2025 End: 97-22-0457Xpoxxmb encounter procedureSmarco antonio Otto APRN-FNPConemaugh Memorial Medical Center Neurology Work Phone: Start: 03-08-2025 End: 78-23-3125fbxsnlmyvsQSYAKH HABBOUBFacility:[facility] Centertart: 03-08-2025 End: 46-26-8952Pdsodvbwj to same day surgery centerLoyda Steele MD Work Phone: NeurosurgeryComment on above:Lumbar pseudoarthrosis (Primary Dx)Start: 03-08-2025 End: 14-97-5843Fuerkckeafhl consultation with patientLoyda Steele MD Work Phone: NeurosurgeryStart: 03-06-2025 End: 96-73-9900Ihmocc Rommel Dubose MD Work Phone: [facility] [place] EndocrinologyStart: 03-06-2025 End: 78-12-8873Zemanaraya Dubose MD Work Phone: noms Dmitriy EndocrinologyStart: 03-06-2025 End: 11-31-5494Ltjqhxb encounter procedureTocandis EUBANKS Work Phone: NOVP Dmitriy Access OrthopaedicsComment on above: Right shoulder pain, unspecified chronicity (Primary Dx)Start: 03-06-2025 End: 53-52-5707tqbaqjzdehDTJL D HILLSNot AvailableStart: 03-06-2025 End: 24-70-2783Jplbie outpatient visit 25 minutesRosey Dubose MD Work Phone: NOK[facility] EndocrinologyComment on above: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); Sweating disease; Encounter for dietary consultation; Class 2 severe obesity due to excess calories with serious comorbidity and body mass index (BMI) of38.0 to 38.9 in adult ([facility])Start: 03-06-2025 End: 17-95-4137dqfdylsroxXWAI D HILLSNot AvailableStart: 02-28-2025 End: 55-09-6456Xntkdcg encounter procedureRosey Dubose MD-Lab [facility] CenterStart: 02-28-2025 End: 83-50-9608yyatcvfecbLwhe Oberer Work Phone: [facility] Work Phone: Start: 02-23-2025 End: 56-75-0064Jmrsemxpk encounterLoyda Steele MD Work Phone: NeurologyComment on above:Patient QuestionStart: 02-20-2025 End: 16-23-2619Oonnvjyer encounterLoyda Steele MD Work Phone: NeurologyComment on above:ResultsStart: 02-13-2025 End: 54-36-4542Jyttohx encounter procedureAdvanced Practice Providers Work Phone: Transplant CenterComment on above:Spondylosis (Primary Dx); Chronic bilateral low back pain with bilateral sciaticaStart: 02-13-2025 End: 30-36-7093wlbhelucckCCPJ LEE OBERERFacility:[facility] Hospitaltart: 02-09-2025 End: 93-52-9611Yfpcggvre encounterLoyda Steele MD Work Phone: NeurologyComment on above:Medication RequestStart: 02-02-2025 End: 78-02-0172Xgsqdvhge to same day surgery centerMohector Bran MD-Investigative Assistant Work Phone: Start: 02-02-2025 End: 70-28-7566inbwxgajxfWexz Oberer DO Work Phone: [facility] Work Phone: Start: 01-31-2025 End: 20-09-9615Tszzefq encounter procedureDanisha Bran MD-Pre-Surgical Testing Work Phone: Start: 01-31-2025 End: 45-89-6048yjuzvvofprNkaz Oberer DO Work Phone: [facility] Work Phone: Start: 89-47-3759Pmllgvlbh for preprocedural laboratory examinationMohector PachecoOur Lady of Mercy Hospital - Andersonelvin [facility] Physician GroupStart: 01-26-2025 End: 62-23-2649Ogerwp outpatient visit 40 minutesMohector Bran MD Work Phone: uh [facility] HospitalComment on above:Angina pectoris (Primary Dx); Essential hypertension; Shortness of breath on exertion; Mixed hyperlipidemia; Morbid obesity (Multi); BMI 39.0-39.9,adult; Cerebrovascular accident (CVA), unspecified mechanism (Multi); Never smoked any substanceStart: 01-26-2025 End: 62-66-1363kogorbfhenZJHVJBBPiedmont [facility] AmbulatoryStart: 01-09-2025 End: 82-08-2064Xfxktgees encounterLoyda Steele MD Work Phone: NeurologyComment on above:Patient QuestionStart: 01-04-2025 End: 23-74-5258Fvrputf encounter procedureLoyda Steele MD Work Phone: NeurosurgeryComment on above:Lumbar pseudoarthrosis (Primary Dx)Start: 01-04-2025 End: 02-38-1415souixtklboKBDS LEE OBERERFacility:[facility] HospitalStart: 12-19-2024 End: 22-74-6717Nwyaefp encounter procedureRafael Holbrook MD-[facility] Work Phone: Start: 12-12-2024 End: 82-34-8071Pkjfwhj encounter procedureJose Valdovinos DO-[facility] Work Phone: Start: 12-08-2024 End: 42-12-5043Sxicocy encounter procedureVicizabela Merritt LUNCHROOM MOTHER-C-X-Ray [facility] CtrStart: 12-08-2024 End: 58-48-3957wjstisqjhjDrkiwnio Lynn Baatz GibbsFacility:[facility] Hospitaltart: 12-07-2024 End: 14-22-6126Trzysxzrz to same day surgery centerLoyda Steele MD Work Phone: NeurosurgeryComment on above:Mary Jimenez`s next spine injection Specific location infoStart: 12-07-2024 End: 44-22-6616Ohyfcbq encounter procedureEmg 1 Neur Fhc Rej (Max Weight: 400) Work Phone: NeurologyComment on above:EMGStart: 12-07-2024 End: 76-75-2023mxvkooxhpvUnavee Habboub MD Work Phone: NeurosurgeryStart: 12-05-2024 End: 23-78-0662kktumomtppLYGO OBERERFacility:EU [place]kyStart: 12-05-2024 End: 54-66-5746Huqhiov encounter procedureGilmar EDUARDO [facility] Start: 12-01-2024 End: 12-95-5074Ngeljfnij encounterRosey Dubose MD Work Phone: NOMS SH ENDOCRINOLOGYComment on above:Medication ProblemStart: 11-30-2024 End: 00-24-5362Ukrlfjw encounter procedureLoyda Steele MD Work Phone: NeurosurgeryComment on above:Lumbar radiculopathy (Primary Dx)Start: 11-30-2024 End: 78-50-7595dodhjfqwmcRKGU PARAS OBERERFacility:[facility] HospitalStart: 35-56-5161drqncwppkaCOVS OBERERFacility:ALLA [place]kyStart: 11-23-2024 End: 54-45-9877Efpyelp encounter procedureKarl Oberer DO Work Phone: [facility]-Ultrasound [facility] Work Phone: Start: 11-23-2024 End: 07-64-3549qhtcouerocSkpy Oberer DO Work Phone: [facility] Work Phone: Start: 11-14-2024 End: 35-48-4329dychlxrvfwApyqgah Vytmelanieas Giedraitis MDFacility:PM [place] Start: 11-07-2024 End: 70-78-9885gepshwzkkwUmik Oberer DO Work Phone: [facility] Work Phone: Start: 11-07-2024 End: 80-08-3549Pgddvcu encounter procedureKarl Oberer DO Work Phone: [facility] Work Phone: Start: 10-31-2024 End: 72-32-8523Wiazwox encounter procedureKarl Oberer DO Work Phone: [facility] GroupNew [facility] [place] Work Phone: Start: 10-27-2024 End: 19-93-5130Suypiv Tanja EUBANKS Work Phone: ana SEVERINOYStart: 10-27-2024 End: 69-25-4154Dvlshs Tanja EUBANKS Work Phone: ana SEVERINOYStart: 10-27-2024 End: 36-40-7105Cfxhkmpj Nakia EUBANKS Work Phone: aNA SANDUSKYComment on above:Neck pain (Primary Dx); MyalgiaStart: 10-26-2024 End: 75-73-2413RyswveLfmso F Sabbagh MD Work Phone: NOMS ENDOCRINOLOGYComment on above:Secondary male hypogonadismStart: 10-19-2024 End: 80-27-4856Qyehbzd encounter procedureKarl Oberer DO Work Phone: [facility]-Lab [facility] Centertart: 10-19-2024 End: 45-04-5777xyzyjicbycHxbq Oberer DO Work Phone: [facility] Work Phone: Start: 10-06-2024 End: 75-27-6933Iugjomwua encounterLoyda Steele MD Work Phone: NeurologyComment on above:Patient Question; Track Supervisor - OtherStart: 09-28-2024 End: 28-20-4673imytjutjesBkyn Oberer DO Work Phone: [facility] Work Phone: Start: 09-28-2024 End: 90-39-4269Qtqhbpe encounter procedureKarl Oberer DO Work Phone: [facility] Work Phone: Start: 09-27-2024 End: 05-67-1163Ophydw Tanja EUBANKS Work Phone: aNA SANDUSKYStart: 09-27-2024 End: 28-86-3473Agvcpymeryl EUBANKS Work Phone: aNA SANDUSKYStart: 09-17-2024 End: 62-67-8823Rondlkvxq encounterPhiewa Bhandari DO Work Phone: Spine InstituteComment on above:Post Injection QuestionsStart: 09-15-2024 End: 57-12-4973Tumuhlssn encounterPhilljennifer Bhandari DO Work Phone: NeurologyStart: 09-15-2024 End: 72-50-3052rfgvnvqxhyHEYW PARAS OBERERFacility:[facility] Hospitaltart: 09-08-2024 End: 84-32-9592bkzvpjuyrsGHJLIR LOWENot AvailableStart: 09-05-2024 End: 63-93-8887mhimwrlaykCMNEF Rakesh DUBOSENot AvailableStart: 09-03-2024 End: 96-30-5361Ecohdezqf encounterPhiewa Rosa Elena Bhandari DO Work Phone: Sppej InstituteComment on above:Preperations for Procedure CallStart: 09-02-2024 End: 76-21-8071Tpehibjmy encounterPhiewa Rosa Elena Bhandari DO Work Phone: spine InstituteComment on above:Preperations for Procedure (Mychart)Start: 09-01-2024 End: 57-07-4409Yuhauc OnlyPhiewa Rosa Elena Bhandari DO Work Phone: Sprna MedicineComment on above:Lumbar radiculopathy (Primary Dx); Cervical disc disorder with radiculopathyStart: 08-31-2024 End: 08-40-1789Wsvktdf encounter procedureKarl Oberer DO Work Phone: [facility]-Lab [facility] Centertart: 08-31-2024 End: 64-57-4143jmnlcrzeavCutm Oberer DO Work Phone: [facility] Work Phone: Start: 08-25-2024 End: 30-85-5073Ugydkquds encounterPhillip Rosa Elena Bhandari DO Work Phone: NeurologyComment on above:Cancel injection for today Start: 08-18-2024 End: 32-44-4200ohokmqmfbjMaliyzpviMetroHealth [facility] Center Work Phone: Start: 08-18-2024 End: 40-43-5031Ooujcas encounter procedureCrawley Memorial Hospital Physician [facility] Work Phone: Start: 08-10-2024 End: 12-24-9926Pwnpaetdb encounterPhilljennifer Rosa Elena Bhandari DO Work Phone: Spine InstituteComment on above:Preperations for Procedure CallStart: 08-09-2024 End: 01-64-2915Whzrdip encounter procedureSunni Pycraft RT(R)RadiologyStart: 08-09-2024 End: 11-15-7802nwxnsaquhvGdetg Pycraft RT(R)RadiologyComment on above:Radiology CTStart: 08-09-2024 End: 81-14-0330Sobxzzibtv hospital visit by physicianBet[facility] Maria Del Rosario Work Phone: RadiologyComment on above:Radiculopathy of lumbar region [M54.16]Start: 08-03-2024 End: 47-16-5250Fdomlf flowsheetChristopher Alli DO Work Phone: aNA BELLEVUEStart: 08-03-2024 End: 34-52-6866Etknsp flowsheetChristopher Alli DO Work Phone: ana BELLEVUEStart: 08-03-2024 End: 57-76-1445Tfqmjys encounter procedureChristopher Alli DO Work Phone: aNA BELLEVUEComment on above:Chronic migraine without aura without status migrainosus, not intractable (CMS/HCC) (Primary Dx)Start: 08-03-2024 End: 96-21-2631evwoalrxhuRSUNBMVIWEV HASSETTNot AvailableStart: 08-01-2024 End: 31-08-0865pvbbciouyjZndrogabwCleveland Clinic [facility] Work Phone: Start: 08-01-2024 End: 05-95-0712Fewhcyr encounter procedureTonya Physician [facility] Work Phone: Start: 07-28-2024 End: 73-29-9644velgvnqckjXaom Oberer DO Work Phone: [facility] Work Phone: Start: 07-28-2024 End: 97-77-6175Yocgcfk encounter procedureKarl Oberer DO Work Phone: [facility] Phys[facility] GroupV[facility]UA [facility] Work Phone: Start: 07-27-2024 End: 63-77-8781Wznpbxyax encounterPhilljennifer Bhandari DO Work Phone: Spjmu InstituteComment on above:Preperations for Procedure (Mychart/)Start: 07-25-2024 End: 87-29-1658Fyqufm OnlyPhilljennifer Bhandari DO Work Phone: Spinx MedicineComment on above:Lumbar radiculopathy (Primary Dx)Start: 07-22-2024 End: 87-50-7609Sepgfp outpatient visit 25 minutesMohector Bran MD Work Phone: uh [facility] HospitalComment on above:Shortness of breath on exertion (Primary Dx); Essential hypertension; Mixed hyperlipidemia; Morbid obesity (Multi); Cerebrovascular accident (CVA), unspecified mechanism (Multi); Angina pectoris; BMI 39.0-39.9,adult; Never smoked any substanceStart: 07-22-2024 End: 26-53-9045yyrsxlxkljVMTIRCIBrooks Memorial Hospital AmbulatoryStart: 07-20-2024 End: 33-72-6670Foucjou encounter procedureLoyda Steele MD Work Phone: NeurosurgeryComment on above:Lumbar radiculopathy (Primary Dx); Radiculopathy of lumbar region; Cervical disc disorder with radiculopathyStart: 07-20-2024 End: 44-74-6934ufwrotwizqVFBE LEE OBERERFacility:[facility] HospitalStart: 07-13-2024 End: 40-54-7991Ynpxzn flowsheetChristopher Alli DO Work Phone: ana [facility]ETTABRISTOL HOSPITALtart: 07-13-2024 End: 72-72-6662Iafeef flowsheetChristopher Alli DO Work Phone: ana RENETTAOLIVEKStart: 07-13-2024 End: 16-44-7130Tbpcyy outpatient visit 25 minutesChristopher Carson DO Work Phone: aNA TODKComment on above:Chronic migraine without aura with status migrainosus, not intractable (CMS/HCC) (Primary Dx)Start: 07-13-2024 End: 64-47-1832iudylsrdubQAKLOHGMIZY HASSETTNot AvailableStart: 07-11-2024 End: 27-45-1816Wsaejiary encounterLoyda Steele MD Work Phone: NeurosurgeryComment on above:Patient QuestionStart: 06-27-2024 End: 16-29-8378Rcjydvwni encounterLoyda Steele MD Work Phone: NeurologyComment on above:ResultsStart: 06-15-2024 End: 20-87-3590vlubesaugiYhfjjn TrevordictFacility:FTMCStart: 06-15-2024 End: 37-96-2799Spsojlh encounter procedureSliane Rodriges [facility] Start: 06-15-2024 End: 19-69-2108Mljcoghaa Result EncounterSliane Rodriges MD Work Phone: noms External Department UnsolicitedStart: 06-15-2024 End: 29-98-5971Kxfxirmsu Result EncounterSliane Rodriges MD Work Phone: noms External Department UnsolicitedStart: 06-13-2024 End: 49-66-7455SehrpkBdhkchy Hauler [facility] STATE ROUTEComment on above: Radiculopathy, lumbosacral region (Primary Dx)Start: 06-09-2024 End: 15-48-1287qdgukhmhthEcyz ObererFacility:[facility] Start: 39-49-3583Cjb-patient / Non-visitKarl Oberer DO Work Phone: [facility] GroupHermann [facility] Work Phone: Start: 06-06-2024 End: 22-09-7038Zuaydecru encounterMiguel Angelgarland MARCELINO NE NEUROComment on above:Med prior to MRIStart: 05-19-2024 End: 64-97-2761Tzvleiraya Rodriges MD Work Phone: noms PC NEUROLOGYStart: 05-19-2024 End: 18-02-7876Uboydfraya Rodriges MD Work Phone: noms PC NEUROLOGYStart: 05-19-2024 End: 04-71-1672Iyqnxj outpatient visit 40 minutesStamita Rodriges MD Work Phone: noms [facility] NEUROLOGYComment on above:Chronic migraine without aura with status migrainosus, not intractable (CMS/HCC); Lumbar radiculopathy; Cervical radiculopathy; Degenerative disc disease, cervical; Carpal tunnel syndrome, bilateral upper limbs; History of stroke; Restless leg syndrome; Hyper reflexiaStart: 05-19-2024 End: 24-22-6022vdevxrmqgfZDZHAR BENEDICTNot AvailableStart: 05-18-2024 End: 00-59-1576lwdcrqtwtuSzlc Oberer DO Work Phone: [facility] Work Phone: Start: 05-18-2024 End: 49-26-4838Rzaipxw encounter procedureKarl Oberer DO Work Phone: [facility] GroupV[facility] Work Phone: Start: 05-17-2024 End: 05-76-8114Aeeemzagd encounterEwa EUBANKS Work Phone: noms [facility] ROUTEStart: 05-06-2024 End: 90-67-1801Ifvrdacdl encounterLoyda Steele MD Work Phone: NeurologyComment on above:ResultsStart: 05-06-2024 End: 06-08-1832elnhmatfbwIros Oberer DO Work Phone: [facility] Work Phone: Start: 05-06-2024 End: 59-67-6642Kxexsdn encounter procedureKarl Oberer DO Work Phone: [facility] Work Phone: Start: 05-05-2024 End: 72-72-4236Lblbeltuk encounterLoyda Steele MD Work Phone: NeurosurgeryComment on above:Patient QuestionStart: 05-02-2024 End: 52-22-4626Hrccxmo encounter procedureDO Jose Oberer Work Phone: [facility]-Lab [facility] Centertart: 05-02-2024 End: 83-95-7554hinfcsemfwXZ Jose Oberer Work Phone: [facility] Work Phone: Start: 04-11-2024 End: 03-96-1504Gsixknvai encounterRosey Dubose MD Work Phone: noms ENDOCRINOLOGYStart: 04-01-2024 End: 29-41-6599Yeetrhlfx encounterRosey Dubose MD Work Phone: noms ENDOCRINOLOGYStart: 03-21-2024 End: 54-95-6032DkbhnaIvmcypuh Rafaela MARCELINO [facility] NEUROLOGYComment on above: Radiculopathy, lumbosacral region; Lumbar radiculopathyStart: 02-23-2024 End: 80-02-8835wqbvsjyumbXY Jose Oberer Work Phone: [facility] Work Phone: Start: 02-23-2024 End: 95-11-5083Zmulvwr encounter procedureDO Jose Oberer Work Phone: [facility]-Lab [facility] Centertart: 02-18-2024 End: 49-27-2256Gxwxjx flowsNadege Rodriges MD Work Phone: noms NEUROLOGYStart: 02-18-2024 End: 87-24-9270Puhpds flowsNadege Rodriges MD Work Phone: noms NEUROLOGYStart: 02-18-2024 End: 30-86-1220Mjiphff encounter procedureSliane Rodriges MD Work Phone: noms NEUROLOGYComment on above:Lumbar radiculopathy (Primary Dx); Cervical radiculopathy; Degenerative disc disease, cervical; Carpal tunnel syndrome, bilateral upper limbsStart: 02-16-2024 End: 28-37-4520Qbnssj Tanja EUBANKS Work Phone: noms NEUROLOGYStart: 02-16-2024 End: 92-89-7920Fwtzzr Tanja EUBANKS Work Phone: noms NEUROLOGYStart: 02-16-2024 End: 47-41-8282Ezqzus outpatient visit 25 [facility] Hospitalelvin EUBANKS Work Phone: noms NEUROLOGYComment on above:Lumbar radiculopathy (Primary Dx); History of stroke; Chronic migraine without aura with status migrainosus, not intractable (CMS/HCC); Chronic daily headache; Obstructive sleep apnea; Restless leg syndrome; Degenerative disc disease, lumbar; Radiculopathy, lumbosacral region; Cervical radiculopathy; Degenerative disc disease, cervical; Carpal tunnel syndrome, bilateral upper limbsStart: 02-01-2024 End: 15-87-7674rjvuukhaoiEM Jose Valdovinos Work Phone: [facility] Work Phone: Start: 02-01-2024 End: 03-82-5113Ndsyemq encounter procedureDO Jose Valdovinos Work Phone: [facility] Work Phone: Start: 01-26-2024 End: 05-17-0398edxfoakuvwIS Jose Oberer Work Phone: [facility] Work Phone: Start: 01-26-2024 End: 21-05-8616Pcumpwt encounter procedureDO Jose Oberer Work Phone: [facility] Work Phone: Start: 44-55-0629Lcj-patient / Non-visitDO Jose Oberer Work Phone: [facility] GroupPeacehealth [facility] Work Phone: Start: 01-25-2024 End: 03-25-9630wkyhwutwrhWJMU OBERERFacility:FTMCStart: 01-25-2024 End: 46-64-1627Rmktajz encounter procedureKARL OBERER [facility] Start: 01-13-2024 End: 72-65-6296ppcudvjmejAF Jose Oberer Work Phone: [facility] Work Phone: Start: 01-13-2024 End: 85-05-7497Ltdmpsg encounter procedureDO Jose Oberer Work Phone: [facility] Work Phone: Start: 12-10-2023 End: 54-11-5062kfitskzhblUO Jose Oberer Work Phone: [facility] Work Phone: Start: 12-10-2023 End: 71-69-4740Depvkcs encounter procedureDO Jose Oberer Work Phone: [facility] GroupV[facility] Work Phone: Start: 11-09-2023 End: 97-60-8974nnbjuurqfxYX Jose Oberer Work Phone: [facility] Work Phone: Start: 11-09-2023 End: 72-67-8202Xyjuvol encounter procedureDO Jose Oberer Work Phone: [facility]-CT Scan [facility] Work Phone: Start: 10-30-2023 End: 93-32-3976jgbykhmbjoQK Jose Oberer Work Phone: [facility] Work Phone: Start: 10-30-2023 End: 27-15-0392Iahpnrw encounter procedureDO Jose Oberer Work Phone: [facility] Work Phone: Start: 10-24-2023 End: 58-13-0628Lyzswru encounter procedureDO Jose Oberer Work Phone: [facility]-Lab [facility] Work Phone: Start: 92-79-4729Wpm-patient / Non-visitDO Jose Oberer Work Phone: [phone] GroupPeacehealth [facility] Work Phone: Start: 10-08-2023 End: 97-50-7637wzhoduwxxaVE Jose Oberer Work Phone: [facility] Work Phone: Start: 10-08-2023 End: 93-86-8086Yknorri encounter procedureDO Jose Oberer Work Phone: [facility]-X-Ray [facility] CtrStart: 93-69-2336Vamapgkhq encounterKatjade Truong RNGeneral SurgeryStart: 10-01-2023 End: 28-19-5984kwzlzprixvMP Jose Oberer Work Phone: [facility] Work Phone: Start: 10-01-2023 End: 66-21-0507Kzsnfgm encounter procedureDO Jose Oberer Work Phone: [facility] Work Phone: Start: 09-28-2023 End: 39-07-0768tmeiknsvkiIM Jose Oberer Work Phone: [facility] Work Phone: Start: 09-28-2023 End: 28-87-1246Epheyop encounter procedureDO Jose Oberer Work Phone: [facility] GroupV[facility] Work Phone: Start: 08-28-2023 End: 38-07-3286Rzzjdn outpatient visit 25 minutesMohector Bran MD Work Phone: uh [facility] HospitalComup health system on above:Angina pectoris (CMS/HCC) (Primary Dx); Shortness of breath on exertion; Essential hypertension; Mixed hyperlipidemia; Morbid obesity (CMS/HCC); Cerebrovascular accident (CVA), unspecified mechanism (CMS/HCC); Never smoked any substanceStart: 08-26-2023 End: 26-46-2793Yufkzbl encounter procedureDO Jose Oberer Work Phone: [facility] Gastroenterology Work Phone: Start: 08-24-2023 End: 80-11-0212Pqlmplw encounter procedureDO Jose Oberer Work Phone: [facility]-Lab [facility] Work Phone: Start: 61-64-9171Bip-patient / Non-visitDO Jose Oberer Work Phone: [facility] Gastroenterology Work Phone: Start: 08-19-2023 End: 64-84-2366Shyyndscd to same day surgery centerDO Jose Oberer Work Phone: [facility]-Digestive Health Work Phone: Start: 08-19-2023 End: 13-71-8875flcqtrtaueIT Jose Oberer Work Phone: [phone] Work Phone: Start: 72-19-3166Iaepuaqjhb RecurringDO Jose Oberer Work Phone: [phone] [place] [address] Ctr-Weight Management Work Phone: Start: 07-30-2023 End: 37-53-3244Mxrkbxq encounter procedureDO Jose Oberer Work Phone: [phone] [place] [address] Ctr-Lab Main [facility] Work Phone: Start: 07-30-2023 End: 66-47-0149zepfvtkdqrYA Jose Oberer Work Phone: [phone] [place] [address] Work Phone: Start: 95-28-7797Wiwfid outpatient visit 15 minutes Jose ObererFPG Family Medicine SanduskyStart: 07-30-2023 End: 76-45-9906Kujjvjs encounter procedureDO Jose Oberer Work Phone: [phone] [place] [address] Physician Group-Start: 07-28-2023 End: 39-66-4443phdngbfhntWA Jose Oberer Work Phone: [phone] Work Phone: Start: 07-28-2023 End: 88-53-4896Ykoaddg encounter procedureDO Jose Oberer Work Phone: [phone]-Digestive Health Work Phone: Start: 21-41-3922Skpgautypf RecurringDO Jose Oberer Work Phone: [phone]-Weight Management Work Phone: Start: 07-22-2023 End: 80-89-4428fsfrlvxpxvPnxn Fitt Other [employer] Other Start: 63-92-5247MEG FOR [employer]ES[employer] GROUP 2-10 30MDawn PietroAurora [facility] ClinicStart: 07-21-2023 End: 68-18-0736ftdjafapmdSqbkbk Cundiff Other [employer] Other Start: 09-61-6714Bfcspupaa encounterRafael Granger Referral CoordinatorStart: 07-16-2023 End: 88-66-6625nlzoncdwrlGmfdzkkz McCormack Other [employer] Other Start: 21-69-1293Bbuymr outpatient new 45 minutes John NguyenG GastroenterologyStart: 07-16-2023 End: 43-42-4998Akyisxo encounter procedureDO Jose Oberer Work Phone: [facility]-Start: 07-13-2023 End: 03-67-0618loijdkmvpsDoncdn Cundiff Other [employer] Other Start: 81-91-7995Anmekc-up encounterRafael Holbrook [facility] ClinicStart: 07-13-2023 End: 50-25-0395Zhdutco encounter procedureDO Jose Oberer Work Phone: [facility] Work Phone: Start: 07-10-2023 End: 26-22-7177acwoehcxpgQlryaw Cundiff Other [employer] Other Start: 38-10-1037Opkebrqhx encounterRafael Holbrook [facility] ClinicStart: 07-07-2023 End: 73-87-3288ecfdisgqyyKczg Fitt Other [employer] Other Start: 06-04-9563ZPU FOR [employer] GROUP 2-10 30MDawn [facility] ClinicStart: 07-07-2023 End: 74-76-0131Wbbgupf encounter procedureDO Jose Oberer Work Phone: [facility] Work Phone: Start: 06-18-2023([facility] RD FU) [facility] F/U Registerd DieticianDawn [facility] ClinicStart: 06-18-2023 End: 43-84-3979jvtrpygtaxAanw Fitt Other [employer] Other Start: 06-18-2023 End: 91-64-5124Xqezwfh encounter procedureDO Jose Oberer Work Phone: [facility] Work Phone: Start: 05-28-2023 End: 48-36-9726reofztgasmHHPX [facility]:FTSUTTER [facility] MEDICAL CENTERtart: 05-28-2023 End: 61-39-3476Ewkbiku encounter [facility] Start: 05-26-2023 End: 51-49-6555auvurvypxxSvlz Oberer Other [employer] Other Start: 14-19-3809Bakzgfifp encounterKarl ObererFPG [facility] [place]Start: 05-20-2023 End: 33-85-1110ifkzubruapNyscse Cundiff Other [employer] Other Start: 68-83-9243Dccaaevot encounterRafael Holbrook [facility] Hospitaltart: 05-12-2023 End: 93-18-9110zdfmbcbgpxBedt Oberer Other [employer] Other Start: 95-05-7768Ezanjdtuu encounterKarl ObererFPG [facility] [place]Start: 05-01-2023 End: 68-74-2794aqoggumpoeTlwe Oberer Other [employer] Other Start: 84-78-1965Oebwvhqnn encounterKarl ObererFPG [facility] [place]kyStart: 05-01-2023 End: 80-42-0072Viewxxl encounter procedureDO Jose Oberer Work Phone: [facility] Work Phone: Start: 04-30-2023([facility] RD FU) [facility] F/U Registerd DieticianRaquel Westbrookskagit regional [facility] Coord[facility] Care ClinicStart: 04-30-2023 End: 11-03-5085xgitmkkjfdDzkn Fitt Other [employer] Other Start: 04-30-2023 End: 07-83-3512Isoeani encounter procedureDO Jose Oberer Work Phone: [facility] Work Phone: Start: 04-20-2023 End: 53-51-7708cdewedcnccVbdu Oberer Other [employer] Other Start: 63-48-3309Sudkbdunx encounterKarl ObererFPG [facility] [place]Start: 04-16-2023 End: 87-87-7125xbulntfmbbKchtxj Cundiff Other [employer] Other Start: 03-97-7476Zjimqm-up Jodee Holbrook [facility] Coordinated Care ClinicStart: 30-77-9506Iydppkbrb encounterRafael Ho Coord[facility] Care ClinicStart: 04-07-2023 End: 91-82-5014sbvlckfizyAqxg Oberer Other [employer] Other Start: 97-45-7165Zfifcb outpatient visit 15 minutes Jose ObererFPG [facility] [place]Start: 03-09-2023 End: 87-70-4690byssgjhfgeYbwmrs Cundiff Other [employer] Other Start: 47-22-9901Gwoztwpyj encounterRafael Holbrook [facility] Hospitaltart: 03-04-2023 End: 65-03-7672kbyqmoprbaOX Jose Oberer Work Phone: [facility] Work Phone: Start: 03-04-2023 End: 40-22-8582Tapabrd encounter procedureDO Jose Oberer Work Phone: [facility]-Lab Main [place] Work Phone: Start: 03-03-2023 End: 98-32-9760aevppmtiqlUszu Oberer Other [facility] [employer] Other Start: 93-68-7786Iehcznuim encounterRyanl ObererFPG [facility] [place]Start: 02-24-2023 End: 28-69-2374dtmuothrmtAE Jose Oberer Work Phone: [facility] Work Phone: Start: 02-24-2023 End: 01-59-4516Rpondyg encounter procedureDO Jose Oberer Work Phone: [facility]-Sleep Lab Work Phone: Start: 02-18-2023 End: 03-27-5771euvlvundaxMwelsq Cundiff Other [employer] Other Start: 77-52-2649Ruwahiibk encounterRafael Montalvodiff [facility] Coordinated Care ClinicStart: 84-32-1381Cskvehepub RecurringDO Jose Oberer Work Phone: [facility]-Weight Management Work Phone: Start: 02-12-2023 End: 72-11-5205qtrhennvltYozrnq Yusef Other [employer] Other Start: 25-26-9879Fjrkvb-up encounterRafael Montalvodiff [facility] Coordinated Care ClinicStart: 02-03-2023 End: 86-93-8737aogeaxzwpqVeqj Oberer Other [employer] Other Start: 52-49-9613Mpjnricqu encounterKarl ObererFPG [facility] CollaborativeyStart: 01-27-2023 End: 01-76-3675efjojzhlkqKrqwfh Cundiff Other [employer] Other Start: 40-74-8232Exvhlollo by computer Barry Ho Coordinated Care ClinicStart: 01-13-2023 End: 64-16-7217negppafigdXxyp Oberer Other [employer] Other Start: 21-97-6798Vlkbnfafx encounterKarl ObererFPG [facility] [place]Start: 01-08-2023([facility] RD FU) [facility] F/U Registerd DieticianDawaaron MendesSt. Helens Hospital and [facility] Coordinated Care ClinicStart: 01-08-2023 End: 45-91-8601awesgumifpTzvu Fitt Other [employer] Other Start: 25-90-7024Fjadso outpatient visit 15 minutes Jose ObererFPG [facility] [place]Start: 12-18-2022 End: 09-78-5782vfztxbugfzOM Jose Oberer Work Phone: [facility] Work Phone: Start: 12-18-2022 End: 05-63-6982Tiowwzf encounter procedureDO Jose Oberer Work Phone: [facility]-Lab [facility] Medical Centertart: 12-16-2022 End: 74-00-8407gviexsiicmSyrmlt Cundiff Other [employer] Other Start: 41-85-1421Sqccdo-up encounterPhoenix Children'[facility] Care [facility] Rapidstart: 45-08-1496Ffontwcbit RecurringDO Jose Oberer Work Phone: [facility]-Weight Management Work Phone: Start: 12-02-2022 End: 90-61-3509zxoekuauwuLaga Oberer Other [facility] [employer] Other Start: 45-56-1963Bbvkwiwno encounterKarl ObererFPG [facility] Medical CenteryStart: 11-25-2022 End: 66-26-4300xzppyvrolfMG SE STILLFacility:Z4Lbfnx: 11-13-2022 End: 29-33-9298Pubsiml encounter procedureDO Jsoe Oberer Work Phone: [facility]-MRI [address] Work Phone: Start: 11-04-2022 End: 46-42-1368jywzkqlqfkGU JOSE OBERERFacility:K4Cuocd: 10-29-2022 End: 54-93-0101uuxtsyjpgsJjhaup Cundiff Other [facility] [employer] Other Start: 96-87-9262Fjmwqo-up encounterPhoenix Children'S Hospital Care ClinicStart: 80-70-2692Hjrhvz outpatient visit 25 minutesKarl L Oberer Work Phone: [phone]-Sqswx [facility] DO Work Phone: Start: 10-21-2022 End: 72-57-6492jvbwmhonhzIvij Fitt Other [employer] Other Start: 16-48-0263XJW FOR OBESITY GROUP 2-10 30MDawn [facility] Coordinated Care ClinicStart: 10-20-2022 End: 26-93-9774ekfmxwkvvlBupgzb Thu Other [employer] [facility] [employer] Other Start: 76-48-8085Coqvgudof encounterJustin ThuFPRosa Elena Izaguirre OrthopedicsStart: 10-15-2022 End: 24-36-8923maugwjkcpnAztnxn Thu Other [employer] [facility] [employer] Other Start: 85-58-3174Nvncxd outpatient visit 25 minutes Olvinsonny AlvarezG Dmitriy OrthopedicsStart: 16-75-2021Hwgdjl outpatient visit 40 minutesJose WhyterF Family Medicine [facility] CollaborativeyStart: 10-09-2022 End: 41-76-0282fjflhzfkeuIL JOSE OBERERLisco [employer] Other Start: 10-06-2022 End: 51-25-3949yvtetuqxttZiqjhe Thu Other [facility] [facility] [employer] Other Start: 79-35-6149Dndmcioiq encounterJustin KelleyFPG Dmit[facility]y OrthopedicsStart: 10-03-2022 End: 71-03-7841fsdrsdjjeaVV Jose Oberer Work Phone: [facility] Work Phone: Start: 10-03-2022 End: 79-45-8819Dbgeatj encounter procedureDO Jose Oberer Work Phone: [facility]-Lab [facility] Medical Centertart: 10-01-2022 End: 65-76-6461hznynpakbkUvxhzm Cundiff Other [facility] [employer] Other Start: 75-70-2979Qwvgeadrf encounterRafael Holbrook [facility] ClinicStart: 09-24-2022 End: 11-50-8263numzvuzhxmUuqkbj Thu Other nort [employer] Other Start: 72-98-6205Nvedsp outpatient new 30 minutes Olvin ThuMercy Medical Center OrthopedicsStart: 09-18-2022 End: 54-17-9967qaubdvstzzXnqr Oberer Other [employer] Other Start: 60-63-9485Korxlvgrx encounterKarl ObererFPG Family [facility]ativeyStart: 09-17-2022 End: 09-38-5464qlaarbcdqvYF Jose Oberer Work Phone: [facility] Work Phone: Start: 09-17-2022 End: 44-22-9395Rybcvvs encounter procedureDO Jose Oberer Work Phone: [facility]-XRay Main [place] Work Phone: Start: 09-15-2022 End: 44-73-1962qbjbnrugvkHgbn Oberer Other [employer] Other Start: 55-48-4867Jxffdguvj encounterKarl ObererFPG [facility] [address] AveStart: 09-11-2022 End: 77-90-4715xjlatsqgfxXY Jose Oberer Work Phone: [facility] Work Phone: Start: 09-11-2022 End: 66-35-4960Rkrrqcr encounter procedureDO Jose Oberer Work Phone: [facility]-X-Ray [facility] CtrStart: 09-03-2022 End: 27-91-7824Mfttppuei department patient visitDO Jose Oberer Work Phone: [facility]-Emergency Room Work Phone: Start: 09-02-2022 End: 33-37-0651jhsuepbejaRyhn Oberer Other [employer] Other Start: 25-96-5993Gmcdiscac encounterKarl ObererFPG [facility] [address] AveStart: 25-69-9044Mmqxlqocwo RecurringDO Jose Oberer Work Phone: [facility]-Weight Management Work Phone: Start: 08-25-2022 End: 63-52-1198eszddaobwaGazkqc Cundiff Other [employer] Other Start: 87-36-2593Euqxjh-up Jodee Holbrook [facility] ClinicStart: 08-22-2022 End: 06-76-1940rspmrvryhbPttd Oberer Other [employer] Other Start: 64-95-5568Nhvwxr outpatient visit 15 minutes Jose ObererFPG Family Medicine uskyStart: 08-14-2022 End: 81-10-2059gpeaziisxqQoscs Graham Other [employer] Other Start: 22-61-6835Twwzjckro encounterPeggy HartMARILEEG Urgent Care Custer RoadStart: 08-12-2022 End: 75-56-2277izdpfcnzrcYR JOSE OBERERFacility:I0Xulbi: 08-06-2022 End: 32-66-1133vcamihzjhpGoeprgg Myra Other north [employer] Other Start: 63-59-5184Xqhbeboao encounterHeather [facility] Coordinated Care ClinicStart: 07-18-2022 End: 08-30-9677szbedudodxNsgednm Missler Other [employer] Other Start: 62-66-3681Eygwwjppl therapyHeather [facility] Coordinated Care ClinicStart: 82-51-0686Zwepmbyhb encounterHeather [facility] Coordinated Care ClinicStart: 77-27-4527Dkoudqgsaj RecurringDO Jose Obgustabor Work Phone: [facility]-Weight Management Work Phone: Start: 11-46-4466Zqflzg outpatient visit 25 minutes Jose L Oberer Work Phone: [phone]-Uqyml [facility] [address] DO Work Phone: Start: 09-40-9204fdotsoxxilGnAisha Bran Facility:[id number]: 07-03-2022 End: 91-57-9645sfyxfksmwzPxmhjkKarin Cat PA-C Work Phone: NeurosurgeryComment on above:Lumbar radiculopathy (Primary Dx)Start: 07-03-2022 End: 31-98-2051Wjdwipjtgnhn consultation with Isaiah Cat PA-C Work Phone: [facility]ITALStart: 70-54-0541iwahzcpgfgXzqnlm Habboub MD Work Phone: NeurosurgeryComment on above:Mary Torres 07/03/22 video conference call-in MeetingStart: 06-16-2022 End: 88-53-5752Zarthgsfa to same day surgery centerDO Jose Valdovinos Work Phone: [facility]-Surgery Center Main CampusStart: 06-16-2022 End: 51-37-1071tlxyuayemrCE Jose Oberer Work Phone: [facility] Work Phone: Start: 06-12-2022 End: 31-88-3117tcmdlecbvoZY Jose Oberer Work Phone: [facility] Work Phone: Start: 06-12-2022 End: 87-53-0292Ujnsful encounter procedureDO Jose Oberer Work Phone: [facility]-Pre-Surgical Testing Start: 06-10-2022 End: 63-29-8954yyjunpcatwHrczvb Habboub MD Work Phone: NeurosurgeryComment on above:3 blood test neededStart: 06-10-2022 End: 27-57-8485Mtpaymwhwd RecurringDO Jose Oberer Work Phone: [facility]-Physical Therapy [address] RdStart: 26-88-7128Qqpdoouprn RecurringDO Jose Oberer Work Phone: [facility]-Physical Therapy [address] RdStart: 06-05-2022 End: 09-73-2290khhrlcyalrIQ JOSE OBERERFacility:Y0Ppwph: 06-02-2022 End: 49-48-2502gkxootsxciUaoe Fitt Other Lisco [employer] Other Start: 11-73-5411Qhrjytcsf encounterDawn [facility] ClinicStart: 06-02-2022 End: 55-46-3830Oeusdsi encounter procedureDO Jose Oberer Work Phone: [facility]-Pre-Surgical Testing Start: 05-28-2022 End: 77-71-9888Oikojoh encounter Geoff BLAKE [facility] Start: 05-27-2022 End: 89-64-5202tbzyhbbiyeWmde Oberer Other Lisco [employer] Other Start: 32-35-9173Uhomtw outpatient visit 25 minutes Jose GonzalezBeth [facility] De[facility] Medicine [facility]ativeyStart: 05-27-2022 End: 26-91-7281Tfgxzws encounter procedureRafael Zheng [facility] Start: 05-16-2022 End: 75-20-1630Vhb-admission assessmentSteven Hawthorne [facility] Start: 05-12-2022 End: 97-00-6325pgxwruzactCM Fernanda Graham Work Phone: [facility] Work Phone: Start: 05-12-2022 End: 77-21-1844Umtbgef encounter procedureNP Fernanda Graham Work Phone: [facility]-Lab [facility] Medical Centertart: 51-71-6187plwqeubgfdAkddpe Shifflett PA-C Work Phone: RadiologyComment on above:Thursday Falling Crisis Start: 05-08-2022 End: 57-02-5098Ffzixgl encounter procedureRafael Zheng [facility] Start: 05-06-2022 End: 37-97-9472Lknplwg encounter procedureSherif ZakyFPG Pain ManagementStart: 05-06-2022 End: 59-61-3784hzqgklaupmIG Fernanda Graham Work Phone: [facility] Work Phone: Start: 59-75-2117atdowicrruRecy Lee Oberer Facility:[id number]: 05-03-2022 End: 38-19-4810Vqicecpmsz and management of inpatientNP Fernanda Graham Work Phone: [facility]-4 North SurgicalStart: 05-03-2022 End: 00-44-6552clyyaggsppl encounterNP Fernanda Graham Work Phone: [facility] Work Phone: Start: 38-62-9839Tplitdjdiq RecurringNP Fernanda Graham Work Phone: [facility]-Physical Therapy [address] RdStart: 36-28-6343Jwljsfbrx encounterPhilljennifer Rosa Elena Bhandari DO Work Phone: Spine InstituteComment on above:Preparations For ProceduresStart: 14-19-9015Wwbllpppl encounterPhillip Rosa Elena Bhandari DO Work Phone: Spgrh InstituteComment on above:Preparations For ProceduresStart: 29-43-6682Nakhsnoro encounterLoyda Steele MD Work Phone: NeurologyComment on above:Forms (POC from [facility] requesting signature)Start: 63-14-8264Phtxuzvuj encounterLoyda Steele MD Work Phone: NeurologyComment on above:Patient QuestionStart: 16-27-1488Wopsnd OnlyPhilljennifer Rosa Elena Bhandari DO Work Phone: Splrr MedicineComment on above:Putti's syndrome (Primary Dx)Start: 04-11-2022 End: 94-66-3912gsgmgencitUveq Oberer Other Nort [employer] Other Start: 00-90-3180Nhcuup outpatient visit 25 minutes Jose Gonzalez Family Medicine SandyoungyStart: 64-92-7497xambpuqrjqUbeyypv Strine PA-C Work Phone: NeurosurgeryComment on above:injectionStart: 39-83-7345N-mail encounter from George Beltran PA-C Work Phone: [facility]OS[facility]ITALStart: 04-09-2022 End: 50-11-8846Jwmfedm encounter procedureCatmare Beltran PA-C Work Phone: NeurosurgeryComment on above:Lumbar radiculopathy (Primary Dx)Start: 94-02-0330Drqkjzdqq encounterNicole Mercy HAMMOND Work Phone: LU Provider AdultComment on above:Wound CareStart: 66-22-4212Gzhsdrpih encounterLoyda Steele MD Work Phone: NeurologyComment on above:Received Outside Medical RecordsStart: 03-21-2022 End: 55-82-0934Xuokuor encounter procedurePHYSICIAN [facility]-CT Scan Main CampusStart: 03-17-2022 End: 26-43-5752vuvjdlwrxvLvdv Oberer Other [employer] Other Start: 56-75-3830Qjqllcuff encounterAscension Macomb Family Medicine [address] AveStart: 59-13-8530scvqajqejiUmghlo Habboub MD Work Phone: [facility] HOSPITALStart: 61-68-5610Xbtuke-up encounter Loyda Steele MD Work Phone: NeurosurgeryComment on above:Follow-up from Mary Jimenez 03/12 appointmentStart: 80-64-5507Cfgbmocjt encounterLoyda Steele MD Work Phone: NeurologyComment on above:creatinine levelRefill RequestStart: 03-10-2022 End: 35-08-0747qpcfxozkizEqrg Obdana-[facility] institutemegan Other [employer] Other Start: 43-68-5922Htjjygklg by computer linkRyan IsabellMiddle Park Medical Center - [facility] Family Medicine uskyStart: 52-09-5452JzaeiiCjmioo Habboub MD Work Phone: NeurologyComment on above:Refill RequestStart: 03-01-2022 End: 19-10-0180ounxzwiovwWfho Oberer Other [facility] [employer] Other Start: 41-48-5169Meuunujjr by computer linkJose Valdovinos [facility] Family Medicine [place]Start: 02-27-2022 End: 86-93-8301Zmvvxep encounter procedureKevyn Cat PA-C Work Phone: NeurosurgeryComment on above:Lumbar pseudoarthrosis (Primary Dx)Start: 02-25-2022 End: 88-07-0085ulpodvtmoxAwjec [place] Other [facility] [employer] Other Start: 52-99-3935Inekcu outpatient visit 25 minutes Fernanda [facility] SouthStart: 02-25-2022 End: 25-07-2519Uggonvl encounter procedureDO Jose Valdovinos Work Phone: [facility]-XRTrenton Psychiatric Hospital CampusStart: 71-84-0206Exqzhzugl encounteroLyda Steele MD Work Phone: NeurologyComment on above:Wound CheckLab OrdersStart: 94-66-6879Yofrox OnlyLoyda Steele MD Work Phone: NeurologyComment on above:Lumbar radiculopathy (Primary Dx)Start: 16-38-7056fkprohrpupYplotp Habboub MD Work Phone: NeurosurgeryComment on above:My physical status on 02/17/22Start: 61-49-9260Qergkkdtk encounterLoyda Steele MD Work Phone: NeurologyComment on above:Lab reportStart: 02-19-2022 Rx RenewalRyanl L Oberer Work Phone: [phone]-Dguan [facility] [address] DO Work Phone: Start: 52-82-0873Nzkfkmxfb encounterLoyda Steele MD Work Phone: NeurologyComment on above:OrdersStart: 02-13-2022 End: 82-55-4132Odbunuc encounter procedureKevyn EUBANKS-C Work Phone: NeurosurgeryComment on above:Spondylolisthesis, lumbar region (Primary Dx)Radiculopathy, lumbar regionStart: 15-92-9762Nbarzskls encounterCathryn Strine PA-C Work Phone: NeurologyComment on above:FormsStart: 99-54-5173XH Patient MsgCcf ProviderNeurosurgeryComment on above:Lab orderStart: 02-07-2022 End: 19-00-9290Sbkwijh encounter procedureDO Jose Valdovinos Work Phone: [facility]-Lab [facility] HealthStart: 02-06-2022 End: 02-72-4807vnclvvzibhZqmf Oberer Other [employer] Other Start: 39-94-5533Wbunmbxil encounterKarl ObererFSouthern Hills Medical Center AveStart: 09-07-0540qccnpgfkpuQitomqw Strine PA-C Work Phone: NeurosurgeryComment on above:blood workStart: 56-82-2911D-mail encounter from caregiverCathryn Strine PA-C Work Phone: [facility]ITALStart: 01-30-2022 End: 92-52-1725Vkkbhjq encounter procedureCathryn Strine PA-C Work Phone: NeurosurgeryComment on above:Alteration in skin integrity related to surgical incision (Primary Dx); Wound healing, delayed; KeloidStart: 01-28-2022 End: 05-69-4959twdytskranFvfg Oberer Other [employer] Other Start: 94-01-6795Gapest outpatient visit 40 minutes Jose WhyterFAnna Jaques Hospital youngyStart: 01-26-2022 End: 52-54-2982jpifqehbxrMmuj Oberer Other [facility] Check-Cap Other Start: 03-29-2912Hiotrpqeb by computer Barbie Valdovinos [facility] Family Medicine [place]Start: 37-60-8672fwsvufevuqTnui Lee Oberer Facility:[id number]: 01-15-2022 End: 90-85-3516Ubtddnipsh hospital visit by physicianSindhu Plano HospRadiology Comment on above:Radiculopathy, lumbar region [M54.16]Start: 84-93-2407Allkuhmyt encounterRaavelino Sylvester [facility] Home CareComment on above:Home CareStart: 19-67-1884tgekjvqwxbQkfibpmjwrzRosario Craig MD Work Phone: NeurosurgeryStart: 12-31-2021 End: 58-15-2892Agiwozlpzn and management of inpatientLOYDA STEELE Facility:[facility] Centertart: 12-19-2021 End: 39-60-4759Kzlncfe encounter procedureDO Jose Valdovinos Work Phone: [facility]-Lab [facility]portStart: 78-83-6453CX Get Medical AdviceLoyda Steele MD Work Phone: NeurosurgeryComment on above:Valatie Pain Pills Refill Request To Mariluz Beltran/tart: 45-46-2126Ahnzxvu encounter status Loyda Steele MD Work Phone: NeurosurgeryStart: 12-17-2021 End: 98-21-9511yjfcvizzhqLjsnfu Habboub MD Work Phone: Pre AnesthesiaComment on above:BMI 37.0-37.9, adult (Primary Dx); Pre-op testing; Cerebrovascular [...] classification, unspecified obesity type; Sleep apnea, unspecified typeRefill RequestStart: 12-17-2021 End: 66-48-5007Ctkfjsxtb to [place] [address] Work Phone: SHEFFIELDStart: 12-17-2021 End: 17-65-9971Zrpdgxz encounter [place] [address] Work Phone: Pre AnesthesiaStart: 12-12-2021 End: 23-04-3189Moxgdro encounter procedureDO Jose Valdovinos Work Phone: [facility]-Lab [facility]portStart: 83-30-2999fsiqhozncpNhqwsy Habboub MD Work Phone: NeurosurgeryComment on above:Patient EducationStart: 15-60-1380Gvhcjpq encounter statusLoyda Steele MD Work Phone: NeurosurgeryStart: 12-05-2021 End: 47-70-9605Kjubkop encounter procedureDO Jose Valdovinos Work Phone: [facility]-Lab [facility]keesportStart: 11-20-2021 End: 82-63-3804Iyspcqcza department patient visitAstrit H [facility] Start: 15-78-6905Hojcrhtin encounterLoyda Steele MD Work Phone: NeurologyComment on above:Patient QuestionStart: 11-04-2021 End: 71-20-1424Dek-SiteSusie Sandoval [facility] Start: 18-05-3553Lbmmsmykq encounterBakari Reyes MD Work Phone: FV Provider AdultComment on above:CoPat StopStart: 10-23-2021 End: 11-46-4778kglcweslgoTfpucs Habboub MD Work Phone: NeurosurgeryComment on above:S/P lumbar fusion (Primary Dx)Start: 10-23-2021 End: 99-02-6131Pyceprbhegfj consultation with Yakelin Steele MD Work Phone: [facility]Start: 10-21-2021 End: 04-56-8918Ggjpmnx encounter procedureBakari Reyes MD Work Phone: [facility] FVComment on above:Postoperative infection, unspecified type, subsequent encounter (Primary Dx); S/P lumbar fusionStart: 10-15-2021 End: 41-42-1193Jnv-Anne Sandoval McClainExtended Care Start: 10-09-2021 End: 32-10-8197Mhgsvey encounter procedureLoyda Steele MD Work Phone: NeurosurgeryComment on above:Spondylolisthesis of lumbar region (Primary Dx)Start: 10-07-2021 End: 09-89-1864Jui-Anne Sandoval McClainExtended Care Start: 10-02-2021 End: 59-03-7705emchhdekxxFanohw Habboub MD Work Phone: NeurosurgeryComment on above:S/P lumbar fusion (Primary Dx)Start: 10-02-2021 End: 10-48-2457Koohbseossxe consultation with Yakelin Steele MD Work Phone: [facility]ITALStart: 09-25-2021 End: 52-53-5660Smb-Maximiliano [facility] Start: 09-23-2021 End: 39-27-5599Bmy-Anne Sandoval [facility] CenterinExseymour [facility] Start: 09-04-2021 End: 70-47-4783Hnidbmq encounter procedureLoyda Steele MD Work Phone: NeurosurgeryComment on above:Spondylolisthesis of lumbar region (Primary Dx)Start: 08-16-2021 End: 71-91-6180Sfgkrinvxl and management of inpatientLOYDA STEELE [facility]: 02-39-7261fzodwgfzgxWHBJ PARAS OBERER [facility]: 07-23-2021 End: 07-38-2789zcelsmrrzhHzld Oberer Other [employer] Other Start: 32-87-4663Epjlxv outpatient visit 40 minutes Jose ObereAdventHealth [facility] [address] AveStart: 07-11-2021 End: 58-25-3826saulecnqydAprk Oberer Other [employer] Other Start: 39-91-5536Tygcruphd encounterKarl ObSky [facility] [address] AveStart: 06-27-2021 End: 05-90-0259wcpufvlpibBxsc Oberer Other [employer] Other Start: 37-51-5412Xcgwzk outpatient visit 15 minutes Ojse ObererF [facility] [address] AveStart: 05-10-2021 End: 09-73-2184gyfvfwpkqxYond Oberer Other [employer] Other Start: 47-71-2633Rxjesefcz encounterKarl ObereAdventHealth L[facility] [address] AveStart: 05-09-2021 End: 12-35-0589vhpzplnkajJlzw Oberer Other [employer] Other Start: 64-88-4538Bowzjo outpatient visit 25 minutes Jose AbdirizakererFDIANA [facility] [address] AveStart: 02-14-2021 End: 65-62-6214Bbzbtamlvw hospital visit by physiciani [facility] Maria Del Rosario (1.5t) Work Phone: RadiologyComment on above:Chronic left-sided low back pain with left-sided sciatica [M54.42, G89.29] Procedures DateProcedureProcedure DetailPerforming ClinicianStart: 71-60-5637Apyzf shoulder complete minimum 2 viewsTodd Nadeem EUBANKS Work Phone: Start: 99-66-1134Mkewn dip stick/tablet rgnt auto w/o microscopyCcf ProviderStart: 46-99-0514Synvlq-up visitFollow UpKARL OBERERStart: 42-92-7276WQ LHC & COR AngioKarl Oberer DO Work Phone: Start: 08-95-1886Adeb Oberer DO Work Phone: Start: 51-05-2546Ogqkz 1996 panel - Serum or Plasma Loyda Steele MD Work Phone: Start: 68-24-1411Eetfoq-up visitFollow UpGHAITH HABBOUBStart: 17-22-9881Iibgq X-ray of right tibia and right fibulaKarl Oberer DO Work Phone: Start: 70-91-8773IY, scrotumKarl Oberer DO Work Phone: Start: 44-15-6571Yghhjwztt single/vp strategic planning trigger point 1/2 Colleen EUBANKS Work Phone: Start: 42-07-1829Rx lumbar spine w/o contrast material Loyda Steele MD Work Phone: Start: 36-69-9427CKW SPINE CERVICAL W/O CONTRASTStejabier Rodriges MD Work Phone: Start: 02-18-2024 End: 28-48-6291Gvkzxd emg ea extremty w/paraspinl area completeEwa Rodriguez RAIMUNDO Work Phone: Start: 19-55-2486Wtdxwjsny single/vp strategic planning trigger point 1/2 Colleen Rodriguez RAIMUNDO Work Phone: Start: 59-54-0992D-ray of cervical spineDO Jose Oberer Work Phone: Start: 93-72-8726U-ray of lumbar spine, six views including bending viewsDO Jose Oberer Work Phone: Start: 79-22-6332WM of paranasal sinus without contrastDO Jose Oberer Work Phone: Start: 32-45-8322Fhtub chest X-rayDO Jose Oberer Work Phone: Start: 71-25-7851EqhscbvnsdcKC Jose Oberer Work Phone: Start: 29-42-1068Mpdabnkvhhw measurementDO Jose Oberer Work Phone: Start: 20-65-7789Debegycckx elastography of liverDO Jose Oberer Work Phone: Start: 89-00-4808Xosrbkfeumdvwgg of liverDO Jose Oberer Work Phone: Start: 06-09-7828WEI of left elbowDO Jose Oberer Work Phone: Start: 60-62-3089Ckvhs X-ray of left elbowDO Jose Oberer Work Phone: Start: 22-47-9670N-ray of cervical spineDO Jose Oberer Work Phone: start: 02-24-7085Leddf culture for bacteria, including anaerobic screenDO Jose Oberer Work Phone: Start: 12-61-8679Lnnnv chest X-rayDO Jose Oberer Work Phone: Start: 62-28-2078Iselhl scan veins of upper limbDO Jose Oberer Work Phone: Start: 11-59-7109Sctfxqmkzxm of kneeDO Jose Oberer Work Phone: Start: 04-14-5809YIHE Antigen (LFIA)DO Jose Oberer Work Phone: Start: 55-22-3114Voyuplhoqzr of thoracic spineNP [place] Work Phone: Start: 53-14-1589R-ray of lumbar spine, two or three viewsNP [place] Work Phone: Start: 42-67-7621Ydsunfk ultrasonography of bilateral carotid arteriesNP [place] Work Phone: Start: 10-29-5961Ppoxr chest X-rayNP [place] Work Phone: Start: 15-71-5695KZ of head without contrastNP [place] Work Phone: Start: 63-55-5403UOBT Antigen (LFIA)LUNCHROOM MOTHER [place] Work Phone: Start: 30-54-5838PW of lumbar spine without contrast PHYSICIAN NO FAMILYStart: 82-07-1399V-ray of lumbar spine, two or three viewsDO Jose Oberer Work Phone: Start: 15-79-2592Tlxfj depression screening assessment Ccf ProviderStart: 62-21-4810Arimx spine lumbosacral 2/3 viewsLoyda Steele MD Work Phone: Start: 46-30-2651Ymtux depression screening assessment Xr HospStart: 48-75-5242Dqwmj depression screening assessmentLoyda Steele MD Work Phone: Start: 11-71-3487Pewyx depression screening assessment Loyda Steele MD Work Phone: Start: 73-51-5199Bozym depression screening assessment Loyda Steele MD Work Phone: Start: 32-58-1176Vhytivqy screenLOYDA STEELEComment on above:Performed By: #### [id number] #### [place] [id number] [place] [id number] Wpzii: 26-45-1635Nem spinal canal lumbar w/o contrast material Gilmar Moore MD Work Phone: Start: 02-94-5420Uxxofimneiaob of median nerveJulie McClainComment on above:under local anesthesiaStart: 19-38-7717Petjrkcq AND drainageJulie McClainComment on above:INCISION AND DRAINAGE RIGHT TOTAL KNEE ARTHROPLASTY WITH POLY EXCHANGE, SYNOVECTOMYStart: 12-48-7869Ppmfo knee replacementJulie McClainComment on above:RIGHT TOTAL KNEE ARTHROPLASTYStart: 88-43-9102Wboyjb of musculotendinous cuff of shoulderJulie McClainComment on above:leftStart: 49-62-3645Nbobh shoulder replacementJulie McClainComment on above:rightStart: 03-86-5562Psmc total knee arthroplasty compounded by obesity Susie Zazuetatart: 21-73-0298Tigpgniigjh of shoulderJulie McClainComment on above:rightStart: 53-75-3273UmchshuytrmSwcapx Habboub MD Work Phone: ankle left 7Julie McClainComment on above:left- hardware removedArthroplasty of kneeKarl L Oberer Work Phone: Arthroscopy of kneeJulie McClainComment on above:l x1 rt x2Back structure, excluding neck (body structure)Susie TamezinColonoscopyKarl L Oberer Work Phone: Comment on above:27Nov2016;Entire foot (body structure)Susie BriggsHistory of operative procedure on lumbar spinal structure Susie Westbrooksertion of bone stimulator 9Julie McClainComment on above:lower backLaminectomyJulie McClainOperative procedure on ankleKarl L Oberer Work Phone: Operative procedure on kneeKarl L Oberer Work Phone: Repair of musculotendinous cuff of shoulderKarl L Oberer Work Phone: Repair of shoulderKarl L Oberer Work Phone: rt little finger closed reductionJulie McClainSurgical procedure on thoraxKarl L Oberer Work Phone: Plan of Treatment DateCare ActivityDetailAuthorStart: 46-86-3838XDeU/Tdap/Td Vaccines (3 - Td or Tdap)DTaP/Tdap/Td Vaccines (3 - Td or Tdap)[facility] Start: 44-94-9724Fyzlm microalbumin profileDTaP,Tdap,Td Vaccine (3 - Td or Tdap) [facility]: 79-18-0049Ivxkgizh specific antigen measurementProstate Cancer Screening DiscussionRegency Hospital Cleveland Easttart: 31-12-7904Zygdr panelLipid ScreeningRegency Hospital Cleveland Easttart: 20-53-6131Eieraioa specific antigen measurement Prostate Cancer Screening DiscussionRegency Hospital [facility] Easttart: 33-94-7570Dukmvrvjrh measurementSerum CreatinineRegency Hospital Cleveland Easttart: 79-93-4727DC Controlled (<130/80)BP Controlled (<130/80)[facility]: 09-04-2025 End: 26-66-4372Eksxcaz encounter /09/2026 10:10 AM EDT Office Visit [facility] [address] [place] [phone] Rosey Dubose MD [address] [place] [address] GABBIE Izaguirre EndocrinologyStart: 04-24-2025 End: 20-34-5216Tjaqsqs encounter ndnefnugf96/27/2025 11:30 AM EDT [facility] [address] [facility] [address] [place] [address] Danisha Bran MD [address] [facility], [address] [place] [address] [facility]: 03-24-2025 End: 13-73-1813Xbhsmzp encounter sfzfvxcsa02/26/2025 9:30 AM EDT Office Visit [place] [address] [facility] [address] [place] [address] Danisha Bran MD [address] [facility] [address], [address] [place] [address] [facility]: 03-08-2025 End: 71-19-1467Rzcbka-up tejsjkupx53/10/2025 2:00 PM EDT [facility] Neurosurgery [address] [place] [address] Loyda Steele MD [address] [place], [place] [phone] follow upNeurosurgeryComment on above:follow upStart: 03-08-2025 End: 56-60-9733Wdgyuyc encounter tkrjfigni01/10/2025 2:00 PM EDT Office Visit Neurosurgery [address] [place] [address] Loyda Steele MD [address] [place] [address] follow upNeurosurgeryComment on above:follow upStart: 03-06-2025 End: 99-74-5201Dslhxcgwfq [Mass/volume] in BloodHemoglobin Lab Routine Secondary male hypogonadism Expected: 03/06/2025 (Approximate), Expires: 03/06/2026NOMN HealthcareComment on above:Expected: 03/06/2025 (Approximate), Expires: 03/06/2026Start: 03-06-2025 End: 93-39-9948Emnnzdcg specific Ag [Mass/volume] in Serum or PlasmaPSA Lab Routine Secondary male hypogonadism Expected: 03/06/2025 (Approximate), Expires: 03/06/2026[facility] Work Phone: Comment on above:Expected: 03/06/2025 (Approximate), Expires: 03/06/2026Start: 03-06-2025 End: 78-16-4737Keqisdbpzevi [Mass/volume] in Serum or PlasmaTestosterone Lab Routine Secondary male hypogonadism Expected: 03/06/2025 (Approximate), Expires: 03/06/2026NOMN HealthcareComment on above:Expected: 03/06/2025 (Approximate), Expires: 03/06/2026Start: 03-06-2025 End: 67-57-7263Yzpnmte encounter jdtfyqkcn88/08/2025 10:30 AM EDT Office Visit [facility] [address] [place] [address] Lizy Mckeon PA [address] [facility] [place] [address] NOMStan Rodríguez OrthopaedicsStart: 03-06-2025 End: 34-79-5835Hvkqjbr encounter procedureNOMERCY HOSPITAL WASHINGTON ENDOCRINOLOGYComment on above: ArrivedStart: 94-18-6208Xgqeyjtoi vaccinationInfluenza Vaccine (#1)[facility]: 02-13-2025 End: 71-42-5605Xlafilg encounter lmhezyyol89/18/2025 8:30 AM EDT Office Visit [facility] [address] [phone] Providers, Advanced Practice [address] [address] Kidneyreplaced by transplant (HCC) (Primary Dx)Transplant CenterComment on above:Kidney replaced by transplant (HCC) (Primary Dx)Start: 02-02-2025 [facility]: 73-74-1935SPOZCAIM SCREENDIABETES SCREEN [facility]: 90-81-0172Wdodaeau ScreeningDiabetes ScreeningRegency Hospital [facility] Easttart: 01-04-2025 End: 25-58-2630Xcnartv encounter hymtsgmid80/09/2025 9:40 AM EDT Office Visit [facility] [facility] [address] [place] [phone] Ramandeep Otto NP [address] [place] [phone] TEQUILA MEIERJAVANYStart: 23-23-1643ZVBTDHYH SCREENDIABETES SCREENRegency Hospital [facility] Easttart: 11-30-2024 End: 83-12-4043Nqqasqi encounter laemducdu26/04/2025 11:40 AM EDT Office Visit Neurosurgery [address] [place] [address] Ztcqpji, Ghaith, MD [address] [place], [place] [phone] Ordering Provider Via Office Visit: 2-4 weeksNeurosurgeryComment on above: Ordering Provider Via Office Visit: 2-4 weeksStart: 60-11-4381EUGONZYM SCREEN DIABETES SCREENRegency Hospital Cleveland Easttart: 11-14-2024 End: 38-86-0421Sewdjbx encounter delbooxqx25/19/2025 10:00 AM EDT Procedure Visit TEQUILA [place] [address] [place] [phone] Kg Carson DO [address] [place], [place] [phone] TEQUILA ARGUELLESUEStart: 10-27-2024 End: 58-70-6087Vtarenvf SupportTEQUILA Perry on above:ArrivedStart: 13-74-0624Ejgpl-19 Vaccine ( season)Covid-19 Vaccine ( season)[facility]: 09-27-2024 End: 57-48-3470Fnwgamrm Xvaeghs1109/27/2024 2:00 PM EDT Clinical Support TEQUILA IZAGUIRRE [address] [facility] [address] [place] [phone] Ewa Rodriguez PA [address] [place] [address] Eddie HAQYComment on above:ArrivedStart: 51-01-6583QTZEQULK SCREEN DIABETES SCREENRegency Hospital [facility] Easttart: 09-15-2024 End: 33-34-8042Nxmjlnglh to same day surgery kqlbkv4409/15/2024 10:22 AM EDT - 09/15/2024 10:59 AM EDT Surgery Ambulatory Surgery [address] [facility] [place] [address] Guillaume Bhandari, DO [address] [place] [address] CERVICAL EPIDURAL BLOCK W/INJECTION(S) NON NEUROLYTIC SUBSTANCE(S) W/IMAGE GUIDANCEAmbulatory Surgery Comment on above:CERVICAL EPIDURAL BLOCK W/INJECTION(S) NON NEUROLYTIC SUBSTANCE(S) W/IMAGE GUIDANCEStart: 09-15-2024 End: 43-52-1538Oln dx/ther sbst intrlmnr crv/thrc w/img gdnCERVICAL EPIDURAL BLOCK W/INJECTION(S) NON NEUROLYTIC SUBSTANCE(S) W/IMAGE GUIDANCE Lumbar radiculopathy Cervical disc disorder with radiculopathy 09/15/2024 10:22 AM EDT [facility] [place]AINStart: 71-77-4244Zuhgkqeini hospital visit by hkslantif03/20/2025 10:22 AM EDT Hospital Encounter Ambulatory Surgery [address] [facility] [place] [address] Guillaume Bhandari, DO [address] [place] [address] Lumbar radiculopathy [M54.16], Cervical disc disorder with radiculopathy [M50.10]Ambulatory SurgeryComment on above:Lumbar radiculopathy [M54.16], Cervical disc disorder with radiculopathy [M50.10]Start: 09-15-2024 End: 66-99-8999Cfrxwpnwe to same day surgery dfndqk5409/15/2024 9:18 AM EDT - 09/15/2024 9:55 AM EDT Surgery Ambulatory Surgery [address] [facility] [place] [address] Guillaume Bhandari, DO [address] [place] [address] CERVICAL EPIDURAL BLOCK W/INJECTION(S) NON NEUROLYTIC SUBSTANCE(S) W/IMAGE GUIDANCEAmbulatory Surgery Comment on above:CERVICAL EPIDURAL BLOCK W/INJECTION(S) NON NEUROLYTIC SUBSTANCE(S) W/IMAGE GUIDANCEStart: 09-15-2024 End: 92-81-4533Ooo dx/ther sbst intrlmnr crv/thrc w/img gdnCERVICAL EPIDURAL BLOCK W/INJECTION(S) NON NEUROLYTIC SUBSTANCE(S) W/IMAGE GUIDANCE Lumbar radiculopathy Cervical disc disorder with radiculopathy 09/15/2024 9:18 AM EDTMC [facility] LORAINStart: 12-55-0928Ukmwjocmpq hospital visit by ukvduxthn08/20/2025 9:18 AM EDT Hospital Encounter Ambulatory Surgery [address] [facility] [place] [address] Guillaume Bhandari, DO [address] [place] [address] Lumbar radiculopathy [M54.16], Cervical disc disorder with radiculopathy [M50.10]Ambulatory SurgeryComment on above:Lumbar radiculopathy [M54.16], Cervical disc disorder with radiculopathy [M50.10]Start: 09-05-2024 End: 37-45-9794Rfsqybn encounter agylzsivz88/10/2025 10:00 AM EDT [facility] [address] [place] [address] Rosey Dubose MD [address] [place] [address] [facility] ENDOCRINOLOGYStart: 08-25-2024 End: 04-49-6233Equwosqdz to same day surgery awiwnq6808/25/2024 7:30 AM EST - 08/25/2024 8:07 AM EST Surgery Ambulatory Surgery [address] [facility] Ida [facility] [place] [address] Guillaume Bhandari DO [address] [place] [address] CERVICAL EPIDURAL BLOCK W/INJECTION(S) NON NEUROLYTIC SUBSTANCE(S) W/IMAGE GUIDANCEAmbulatory Surgery Comment on above:CERVICAL EPIDURAL BLOCK W/INJECTION(S) NON NEUROLYTIC SUBSTANCE(S) W/IMAGE GUIDANCEStart: 08-25-2024 End: 90-36-8100Duk dx/ther sbst intrlmnr crv/thrc w/img gdnCERVICAL EPIDURAL BLOCK W/INJECTION(S) NON NEUROLYTIC SUBSTANCE(S) W/IMAGE GUIDANCE Lumbar radiculopathy 08/25/2024 7:[address] [facility] [place]AINStart: 76-42-5518Vqpgftgiuc hospital visit by zjnwklkyv49/27/2025 7:30 AM EST Hospital Encounter Ambulatory Surgery [address] [place] [address] Guillaume Bhandari DO [address] [place] [address] Lumbar radiculopathy [M54.16]Ambulatory SurgeryComment on above:Lumbar radiculopathy [M54.16]Start: 08-09-2024 End: 28-12-4519Aomeyem encounter oewxxscgs22/11/2025 12:00 PM EST Appointment Radiology [address] [place] [address] MB LUMBAR SPINE WO IVCONRadiologyComment on above:CT LUMBAR SPINE WO IVCONStart: 08-03-2024 End: 18-00-3434Dmnoecs encounter procedureANA BELLEVUEComment on above:Arrived Start: 07-20-2024 End: 70-52-2399Gbhdwwq encounter qvsiatlwo77/22/2025 1:00 PM EST Office Visit Neurosurgery [address] [place] [address] Loyda Steele MD [address] [place], [place] [phone] Neurosurgery Follow UpNeurosurgeryComment on above:Neurosurgery Follow UpStart: 07-13-2024 End: 73-28-3306Nlzfabf encounter izlcqzgif78/15/2025 10:00 AM EST Office Visit TEQUILA TRAN [address] [place] [address] Kg Carson DO [address] [place] [address] ArrivedTEQUILA CASTILLOomment on above:ArrivedStart: 06-29-2024 Advance Directive DiscussionAdvance Directive DiscussionRegency Hospital Cleveland Easttart: 01-01-2025Medicare Advantage Annual Wellness VisitMedicare Advantage Annual Wellness VisitRegency Hospital Cleveland Easttart: 06-07-2024 End: 35-29-5083Ikiqilt encounter khexlvcgg20/10/2024 12:30 PM EST Office Visit [facility] [address] [phone] Se Rodriges MD [address] [place], [place] [phone] NOMS NEUROLOGYStart: 05-19-2024 End: 72-35-7745PL Cervical spine WO contrastMR cervical spine wo contrast Imaging Routine Cervical radiculopathy Degenerative disc disease, cervical Hyper reflexia Expected: 05/19/2024 (Approximate), Expires: 05/19/2025[facility] Work Phone: comment on above:Expected: 05/19/2024 (Approximate), Expires: 05/19/2025Start: 05-19-2024 End: 16-14-3793Rundobp encounter procedureNOMN PCF NEUROLOGYComment on above: ArrivedStart: 04-12-2024 End: 42-46-4432Jkbucqc encounter wkfitarkh13/15/2024 12:30 PM EDT Office Visit [facility] [address] [place] [phone] Se Rodriges MD [address] [place], [place] [address] [facility] NEUROLOGYStart: 04-08-2024 End: 72-31-0956Epurqil encounter iaygnxwbw79/11/2024 8:30 AM EDT Office Visit [facility] [address] [facility] [address] [place] [address] Danisha Bran MD [address] [facility] [address] [place] [address] [facility]: 11-66-5558Ngfkv-19 Vaccine ( season)Covid-19 Vaccine ()[facility]: 02-28-2024 Covid-19 Vaccine ( season)Covid-19 Vaccine () [facility]: 16-08-8934Jvcrkdwai vaccinationRegency Hospital Cleveland Easttart: 02-25-2024 End: 25-83-2105Sckzfvy encounter /29/2024 2:00 PM EDT Office Visit [facility] [address] [facility] [address] [place] [address] Se Rodriges MD [address] [place] [address] [facility] NEUROLOGYStart: 02-18-2024 End: 88-83-9065Cbcfxjj encounter procedureNOATRIUM HEALTH [facility] NEUROLOGYComment on above: ArrivedStart: 02-16-2024 End: 40-76-4474PRD 2 ExtremitiesEMG 2 Extremities Neurology Routine Cervical radiculopathy Degenerative disc disease, cervical Carpal tunnel syndrome, bilateral upper limbs Expected: 02/16/2024 (Approximate), Expires: 08/18/2024 [facility] Work Phone: comment on above:Expected: 02/16/2024 (Approximate), Expires: 08/18/2024Start: 02-16-2024 End: 39-60-0636Ydiczhq encounter fuwekaxoj84/20/2024 8:20 AM EDT Office Visit [facility] [address] [place] [address] Ewa Rodriguez PA [address] [place] [address] [place]ina NEUROLOGYComment on above:ArrivedStart: 49-30-7475Nwtvhnw referralMiami Valley Hospital Work Phone: Start: 05-33-1171AvdqdgfcfBerger Hospital Start: 88-21-4586OvjqydpfjOhioHealth Berger Hospitaltart: 85-98-2196Ugfbxdasdu Health ScreeningBehavioral Health ScreeningRegency Hospital Cleveland Easttart: 44-44-9455SBN, Provider: Danisha Bran, Status: Pen, Time: 2:50 PMFUV, Provider: Danisha Bran, Status: Pen, Time: 2:50 PMMP-[facility] [address] DO Work Phone: Start: 17-24-6622Qcksi-19 Vaccine ( season) Covid-19 Vaccine ()[facility]: 09-72-3890CI CONTROLLED (<130/80)BP CONTROLLED (<130/80)[facility]: 02-07-2023 Adult depression screening assessmentDEPRESSION SCREENINGRegency Hospital [facility] Easttart: 34-83-1187ZY CONTROLLED (<130/80)BP CONTROLLED (<130/80)[facility]: 77-24-3402IE CONTROLLED (<130/80)BP CONTROLLED (<130/80)[facility]: 33-81-9705Mjphl depression screening assessmentDEPRESSION SCREENINGRegency Hospital [facility] Easttart: 47-39-1698Xyrfubluzh measurementSerum CreatinineBarnesville Hospital Start: 20-70-3878XXDYY CREATININESERUM CREATININECleProMedica Defiance Regional Hospitaltart: 27-98-4616FX CONTROLLED (<130/80)BP CONTROLLED (<130/80)[facility]: 08-24-8173PMTUCVCCOQ/HEMATOCRITHEMOGLOBIN/HEMATOCRITRegency Hospital Cleveland Easttart: 10-43-4684PLTMV CREATININESERUM CREATININERegency Hospital Cleveland Easttart: 41-86-4499Uvtla depression screening assessmentDEPRESSION SCREENINGRegency Hospital [facility] Easttart: 52-35-3663MEONO CREATININESERUM CREATININERegency Hospital Cleveland Easttart: 82-79-4994KRE, Provider: Danisha Bran, Status: Pen, Time: 11:10 AMFUV, Provider: Danisha Bran, Status: Pen, Time: 11:10 AMBuff[facility] [address] DO Work Phone: Start: 55-60-2757WK CONTROLLED (<130/80)BP CONTROLLED (<130/80)[facility]: 82-78-0462Jgyzl depression screening assessment DEPRESSION SCREENINGRegency Hospital [facility] Easttart: 35-78-5956CGMHG CREATININESERUM [facility] Hospitaltart: 95-17-0361BV CONTROLLED (<130/80)BP CONTROLLED (<130/80)[facility]: 36-70-8011Vtgrb depression screening assessment DEPRESSION SCREENINGRegency Hospital Cleveland Easttart: 98-63-3973IZU, Provider: Danisha Bran, Status: Pen, Time: 3:50 PMFUV, Provider: Danisha Bran, Status: Pen, Time: 3:50 PMMP-[facility] [address] DO Work Phone: Start: 50-79-4538WTRBYHEEXJ ASSESSMENTDEPRESSION ASSESSMENTRegency Hospital Cleveland Easttart: 13-90-7972FnxctjuivBerger Hospital Start: 40-30-1467UudrymghfOhioHealth Berger Hospitaltart: 27-24-2741OmzupykrzOhioHealth Berger Hospitaltart: 73-38-9601GqbfmmdggOhioHealth Berger Hospitaltart: 30-61-1096Fgvtjoub to pain management specialistOhioHealth Berger Hospitaltart: 24-71-8759TU Lumbar spine WO and W contrast [facility] Foundationtart: 48-63-6297GWM of lumbar spine with contrastMR lumbar spine wo/w [facility]: 87-75-8606Qwzfr chemistry [facility] Hospitaltart: 55-37-4643Dsqlz panelOhioHealth Berger Hospitaltart: 05-04-2022 End: 84-12-6233HxjomntvyOhioHealth Berger Hospitaltart: 04-98-3036Nwdixkfy admissionOhioHealth Berger Hospitaltart: 30-66-5844Mhldjem ultrasonography of bilateral carotid arteriesUS carotid doppler [facility] Medical Centertart: 07-84-5223Jykagwzc therapy procedureOhioHealth Berger Hospitaltart: 65-39-5653Dmdauwfe to neurologistOhioHealth Berger Hospitaltart: 36-58-2931Lqqydlzv to occupational therapist [facility]tart: 71-25-0980EdqbxeeclOhioHealth Berger Hospitaltart: 03-06-9153JrjlhuxvvOhioHealth Berger Hospitaltart: 03-20-2022 End: 40-60-5481Za lumbar spine w/o contrast materialCT LUMBAR SPINE WO IVCON Radiology Routine Acute bilateral low back pain with left-sided sciatica Ex pected: 03/20/2022, Expires: 04/12/2023[facility] Work Phone: comment on above:Expected: 03/20/2022, Expires: 04/12/2023Start: 46-69-1657XKDQG-19 VACCINE (4 - Booster for Sarah series) COVID-19 VACCINE (4 - Booster for Sarah series)[facility]: 84-81-6015Wjerclynf vaccinationINFLUENZA (#1)[facility]: 52-07-1209N- ray of lumbar spine, two or three viewsXR lumbar spine 2-3V*[facility]art: 02-25-2022 End: 87-65-0032Pyttnal encounter procedureDeparted [facility] CampusStart: 02-24-2022 End: 14-29-4894TDNTNEQPFM BLDCREATININE BLD Lab Routine Spinal stenosis of lumbar region with neurogenic claudication Expected: 02/24/2022, Expires: 04/26/2022[facility] Work Phone: comment on above:Expected: 02/24/2022, Expires: 04/26/2022tart: 02-07-2022 End: 17-95-5516[facility] metabolic 2000 panel - Serum or PlasmaBASIC METABOLIC PNL Lab Routine Medication monitoring encounter Expected: 02/07/2022, Expires: 04/09[facility] Work Phone: comment on above:Expected: 02/07/2022, Expires: 04/09/2022tart: 12-20-2021 End: 29-37-4405MSRW-CoV-2 (COVID-19) RNA [Presence] in Respiratory specimen by LATOYA with probe detectionPRE-PROCEDURE & PRE-OPERATIVE COVID Microbiology Routine Pre-op testing Expected: 12/20/2021 (Approximate), Expires: 12/05/2022[facility] Work Phone: comment on above:Expected: 12/20/2021 (Approximate), Expires: 12/05/2022Start: 12-17-2021 End: 51-26-6578UBCS AND SCREEN,[facility]Cl[facility] Work Phone: Comment on above:Expected: 12/17/2021, Expires: 02/16/2022tart: 61-32-1912NQDQX-19 VACCINE (3 - Booster for Sarah series) COVID-19 VACCINE (3 - Booster for Sarah series)[facility]: 14-97-3940EMIHREGYMY ASSESSMENTDEPRESSION ASSESSMENTRegency Hospital [facility] Easttart: 64-28-8888QOEAC-19 VACCINE (2 - Moderna 3-dose series)COVID-19 VACCINE (2 - Moderna 3-dose series)[facility]: 77-67-6753FDoP/Tdap/Td Vaccines (2 - Td or Tdap)DTaP/Tdap/Td Vaccines (2 - Td or Tdap)[facility] HospitalStart: 32-71-2297Uonlk microalbumin profileRegency Hospital [facility] Easttart: 46-37-6341EED Vaccine (1 - 1-dose 60+ series)RSV Vaccine (1 - 1-dose 60+ series) [facility]: 69-87-2461TQC Vaccine (1 - Risk 60-74 years 1-dose series)RSV Vaccine (1 - Risk 60-74 years 1-dose series)[facility]: 57-12-5465CMTOAZCN CANCER SCREENING DISCUSSIONPROSTATE CANCER SCREENING DISCUSSIONRegency Hospital [facility] Easttart: 69-56-8484Mlahbrzh specific antigen measurement Prostate Cancer Screening DiscussionRegency Hospital Cleveland Easttart: 01-57-6987Iykfkgbumpa COLONOSCOPYRegency Hospital [facility] Easttart: 33-05-5408NOQBBIASFV CANCER SCREENING COLORECTAL CANCER SCREENINGRegency Hospital [facility] Easttart: 11-39-8045Qtsinuou specific antigen measurementPSA Prostate Cancer ScreeningProMedica Bay Park Hospital: 49-10-1764GZAUMNQCA (FIT-DNA)COLOGUARD (FIT-DNA)[facility] Start: 16-36-6227NyhbukmscpmMOFADNPUEBAWhwgntvwu ClinicStart: 2004 COLORECTAL CANCER SCREENINGCOLORECTAL CANCER SCREENINGReg[facility] Hospital [facility]tart: 18-48-1175WA COLONOGRAPHYCT COLONOGRAPHYRegency Hospital [facility] Easttart: 02-72-6161UOBLA OCCULT BLOODFECAL OCCULT BLOODRegency Hospital [facility] Easttart: 34-08-9053Gnzyahdoi for malignant neoplasm of colonRegency Hospital [facility] Easttart: 37-01-5931HFZEGSXUWDQKL SIGMOIDOSCOPYRegency Hospital [facility] Easttart: 92-88-7330Pnbvh panelLipid Screening [facility]: 41-11-9722XFTOF SCREENLIPID SCREENRegency Hospital [facility] Easttart: 71-48-9096SCTHYC PCP TEAM CHRONIC DISEASE VISITANNUAL PCP TEAM CHRONIC DISEASE VISITRegency Hospital [facility] Easttart: 06-96-8371Vaixevs ScreeningAnxiety Screening [facility]: 75-38-8966UK CONTROLLED (<130/80)BP CONTROLLED (<130/80) [facility]: 47-81-6273Pieraegwxo ScreeningDepression Screening [facility]: 35-54-4204Ergesrdv mellitus screeningDiabetes Screening [facility]: 06-09-5582UNIGPEPPP C SCREENINGHEPATITIS C SCREENINGRegency Hospital [facility]tart: 47-65-4478Wkbeyrbur C screeningHepatitis C ScreeningProMedica Bay Park Hospital: 14-05-0077PCJ SCREENINGHIV SCREENINGReg[facility]: 91-83-3932HBH screeningHIV ScreeningRegency Hospital [facility]tart: 01-09-5406MRLPI-19 VACCINE (1)COVID-19 VACCINE (1)[facility] Start: 04-65-7194MQH Vaccines (1 of 1 - Standard series)MMR Vaccines (1 of 1 - Standard series)[facility]: 66-02-2337PZW screening HIV ScreeningProMedica Bay Park Hospital: 53-39-7605Qpgsz panelLipid PanelProMedica Bay Park Hospital: 1959Medicare Annual Wellness VisitMedicare Annual Wellness Visit (AWV)[facility]: 56-12-1648Uzcqyrioo for malignant neoplasm of colonUnHolzer Health SystemBacteria identified in Wound by CultureWOUND CULTURE AND GRAM STAIN Microbiology Routine Wound healing, delayed 01/30/2022 12:24 PM EDTCDunlap Memorial Hospital Work Phone: cardiac Catheterization - Onbase ScanCardiac Catheterization - Onbase Scan Cardiac Cath Routine Shortness of breath on exertion Angina pectoris Ordered: 01/26/2025[facility] Service Area Work Phone: Comment on above:Ordered: 01/26/2025 End: 75-11-0560RP Lumbar spine WO contrastCT LUMBAR SPINE WO IVCON Radiology Routine Radiculopathy of lumbar region 1 Occurrences starting 07/20/2024 until 08/19/2025[facility] Work Phone: Comment on above:1 Occurrences starting 07/20/2024 until 08/19/2025Elastase.pancreatic [Mass/mass] in StoolBerger Hospital End: 46-25-4061YRG(NEURO/NI)EMG(NEURO/NI) EMG Routine Lumbar radiculopathy 1 Occurrences starting 11/30/2024 until 11/30/2025levelunc health johnston clayton ClinicComment on above:1 Occurrences starting 11/30/2024 until 11/30/2025Glucose measurement estimated from glycated hemoglobinBerger HospitalHepatic function panelBerger HospitalHepatic function panelBerger HospitalHepatic function panelBerger Hospital IgG [Mass/volume] in Serum or PlasmaBerger HospitalIgG [Mass/volume] in Serum or PlasmaBerger HospitalMR Unspecified body regionBerger HospitalPatient EducationHighland District Hospital Ctr Work Phone: Patient referralMercy Memorial Hospital Work Phone: Radex spine lumbosacral 2/3 viewsXR LUMBAR LIMITED 2V AP/LAT Radiology Routine Radiculopathy, lumbar region 01/15/2022 12:35 PM EDT [facility] Work Phone: End: 96-28-9565Cfdoj spine lumbosacral 2/3 viewsXR LUMBAR LIMITED 2V AP/LAT Radiology Routine Lumbar radiculopathy 1 Occurrences starting 02/21/2022 until 03/23/2023[facility] Work Phone: comment on above:1 Occurrences starting 02/21/2022 until 03/23/2023SPINE INTERVENTION PROCEDURESPINE INTERVENTION PROCEDURE Procedures Routine Spinal stenosis of lumbar region with neurogenic claudication Ordered: 04/01/2022[facility] Work Phone: comment on above:Ordered: 04/01/2022PINE INTERVENTION PROCEDURESPINE INTERVENTION PROCEDURE Procedures Routine Lumbar radiculopathy Ordered: 04/14/2022[facility] Work Phone: comment on above:Ordered: 04/14/2022PINE INTERVENTION PROCEDURESPINE INTERVENTION PROCEDURE Procedures Routine Lumbar radiculopathy Radiculopathy of lumbar regionCervical disc disorder with radiculopathy Ordered: 07/20/2024[facility] CenterComment on above:Ordered: 07/20/2024SPINE INTERVENTION PROCEDURESPINE INTERVENTION PROCEDURE Procedures Routine Lumbar radiculopathy Ordered: 11/30/2024[facility] Work Phone: Comment on above:Ordered: 11/30/2024US Scrotum and testicleBerger HospitalXR Cervical spine 5 [facility] Immunizations Immunization DateImmunizationNotesCare JeyzelnwEjhegcth16-77-9300wbeuavpwy, high dose seasonal, preservative-freeKarl Oberer DO Work Phone: [phone] [place], [place] 7362701-23-2025RSV, bv, preFa and preFb, pfKarl Oberer DO Work Phone: [phone] [place], [place] 7362710-14-2024COVID-19 (NOVAVAX) 12Y and olderKarl Oberer DO Work Phone: [phone] [place], [place] 7362710-14-2024influenza virus vaccine, unspecified formulationGregory COOK [facility] [place] 254950-14-2024Seasonal, trivalent, recombinant, injectable influenza vaccine, preservative freeKarl Oberer DO Work Phone: [phone]04-27-2024tetanus toxoid, reduced diphtheria toxoid, and acellular pertussis vaccine, adsorbedDO Jose Oberer Work Phone: [phone] [place], [place] 7362704-10-2024Seasonal, quadrivalent, recombinant, injectable influenza vaccine, preservative freeDO Jose Oberer Work Phone: [phone] [place], [place] 7362704-10-2024influenza virus vaccine, unspecified formulationSwedish Medical Center [facility]ard PA Work Phone: [facility]02-23-2024influenza virus vaccine, unspecified formulationGregory COOK [facility]02-23-2024Seasonal, quadrivalent, recombinant, injectable influenza vaccine, preservative freeDO Jose Oberer Work Phone: [phone]12-19-2023COVID-19 (PFIZER) 12Y and olderDO Jose Oberer Work Phone: [phone] [place], [place] 7362711-03-2023Prevnar 20 Jose Oberer Other [facility]11-03-2023influenza, injectable, quadrivalent, preservative freeKarl Oberer Other [facility]11-03-2023influenza virus vaccine, unspecified formulationGregory COOK [facility] [place] 254950-14-2022influenza, injectable, quadrivalent, preservative freeKarl Oberer Other [facility]10-14-2022Pfizer COVID-19 Vac Bivalent 30 MCG/0.3ML Intramuscular SuspensionKarl L Oberer Work Phone: mp-[facility] [employer] 250 DO Work Phone: [phone]xnrpk virus vaccine, unspecified formulationGhazala Alexi RNExecutive [facility] of [place] 254950-05-2022influenza virus vaccine, unspecified formulationGregory Corban Direct [facility] [place] 254950-05-2022influenza, seasonal, injectableKarl L Oberer Work Phone: [phone]-LblhnAitkin Hospitalusky 250 DO Work Phone: Comment on above:Series:42-53-3462DYGSK-19 vaccine, age 12+ yr (P[employer] - [place]ING TOP)Fredi Sylvester [facility] 49-67-6579TGMM-CoV-2 mRNA (gcfdvxeuytx-roxp-oalpuqt) vaccineGregory COOK [facility] Hospitalomment on above:Result Comment: 2024-12-05: UBF4161-86-2018REDWT-49 Vaccine Moderna - Documentation Purposes OnlyKarl Oberer Other [facility]10-28-2021influenza virus vaccine, unspecified formulationGregory COOK [facility] [place] 254950-28-2021Influenza, injectable, Madin [place] Canine Kidney, preservative free, quadrivalentLoyda Steele MD Work Phone: cun[facility] hospitals [facility]itan medical centerand Iqggag50-57-1016skiesknzu, seasonal, injectableKarl Oberer Other [facility]03-09-2021COVID-19 Vaccine Sarah - Documentation Purposes OnlyKarl Oberer Other [facility]12-15-2020zoster vaccine recombinantKarl Oberer Other [facility] HospitalHqtyqo02-86-7761evgslnzxv, seasonal, injectable, preservative freeChristopher Alli DO Work Phone: [facility] HospitalZtajdstaci93-96-1408yzqxdwdql virus vaccine, unspecified formulationGregory COOK [facility] [place] 254950-15-2020Seasonal, quadrivalent, recombinant, injectable influenza vaccine, preservative freeLoyda Steele MD Work Phone: c[facility] Medical CenterZwfgcc51-11-6594erjzgt vaccine recombinant Jose Oberer Other [facility] HospitalDowogz18-33-5921puklulqqs, seasonal, injectableKarl Oberer Other [facility]09-01-2020influenza virus vaccine, unspecified formulationGregory COOK [facility]09-01-2020influenza, high dose seasonal, preservative-freeLoyda Steele MD Work Phone: c[facility] Medical CenterErgutq44-40-8522lpchysznq virus vaccine, unspecified formulationGregory COOK [facility]09-27-2019influenza, injectable, quadrivalent, preservative Misty Steele MD Work Phone: c[facility] Medical CenterVifufd23-39-8459gygpxxizk, high dose seasonal, preservative-freeChristopher Alli DO Work Phone: [facility] HospitalNbsotsxdtj06-17-3151ojfsdggpv, injectable, quadrivalent, preservative freeChristopher Alli DO Work Phone: [facility] HospitalUqqdpvkqgs35-84-6772pwjfzocai virus vaccine, unspecified formulationGregory COOK [facility] [place] 254950-29-2018influenza, seasonal, injectableKarl Oberer Other [facility] HospitalEffivx00-67-1229ptpyvysgz virus vaccine, unspecified formulationKarl L Oberer Work Phone: [phone]-OwycuTonya [place] [address] DO Work Phone: [phone]hxmtgk virus vaccine, unspecified formulationGregory COOK [facility] [place] 254950-24-2017influenza, injectable, quadrivalent, preservative freeKarl Oberer Other [facility] HospitalFclica94-44-2920guuwaxofr virus vaccine, unspecified formulationKarl L Oberer Work Phone: [facility]08-01-2017influenza, injectable, quadrivalent, preservative Misty Steele MD Work Phone: c[facility] Medical CenterJcxpuf12-85-6504gyusyxznl virus vaccine, unspecified formulationKarl L Oberer Work Phone: [phone]-LhhzcTonya V[place] [address] DO Work Phone: [phone]duuphr virus vaccine, unspecified formulationGregory COOK [facility]09-01-2016influenza, seasonal, injectableKarl Oberer Other [facility] HospitalJcvkbf08-19-3929nmmhotcgf, injectable, quadrivalent, preservative freeChristopher Alli DO Work Phone: [facility] HospitalXhpdbjnglz40-13-4567uqsjzffzzipg polysaccharide vaccine, 23 Oly Steele MD Work Phone: c[facility] Medical CenterWfqtmf32-68-3146korkpvgic virus vaccine, unspecified formulationKarl L Oberer Work Phone: [phone]-BdkkiTonya [place] [address] DO Work Phone: [phone] 145-99450269569-77-8360ncypkldgfouz polysaccharide vaccine, 23 valentKarl L Oberer Work Phone: [phone]-TmdqqTonya [place] [address] DO Work Phone: [phone] 314-640511962028-12-8168rgotemdcz virus vaccine, unspecified formulationKarl L Oberer Work Phone: [phone]-DtudgTonya V[place] [address] DO Work Phone: [phone] 332-22781137632-59-3116tovuatrsp virus vaccine, unspecified formulationGregory COOK [facility] Hospitaly10-24-2014influenza, seasonal, Isaura Steele MD Work Phone: c[facility] Medical CenterBrfacz47-03-8999wdysuolby virus vaccine, unspecified formulationKarl L Oberer Work Phone: [phone]-YzyqjTonya V[place] [address] DO Work Phone: [phone]o, seasonal, injectableDanisha Bran MD Work Phone: [facility] Work Phone: [phone] 479-572909289512-11-1918xddicpfcx virus vaccine, unspecified formulationGregory COOK [facility]09-30-2011influenza, seasonal, injectableKarl Oberer Other [facility] HospitalYvfolk60-85-5225kvzinbu toxoid, adsorbedKarl Oberer Other [facility] HospitalEvxnqr92-93-1471vdagppi toxoid, reduced diphtheria toxoid, and acellular pertussis vaccine, adsorbedKarl Oberer Other [facility] HospitalVilnsm11-04-3296zwxenswka virus vaccine, unspecified formulationKarl L Oberer Work Phone: [phone]-HesshTonya [place] [address] DO Work Phone: influenza virus vaccine, unspecified formulationKarl L Oberer Work Phone: [phone]-MehrsTonya V[place] [address] DO Work Phone: Comment on above:2011NEGATED: Highlighted row has not occurred!02-17-7748MIICX-19 vaccine, age 12+ yr ([employer] - [place] TOP) Fredi Sylvester [facility] HospitalComment on above:Deferred: - not given on last shift per reportDeferred: Patient Refused - pt having increasing pain; does not want at this time Payers DatePayer CategoryPayerPolicy [id number] Health InsuranceMEDICAL MUTUAL [id number] [id number] 2024Self-[id number] [id number]MO MEDICARE MMO MEDADVANTAGE HMO [id number] 2021-Present [phone] [address] [place] [address] [id number] 2022Medicare (Managed Care) [id number] 2016Medicare 1.2.840.9734[id number] [id number] 2.16.840.2.15051[id number] 2.16.840.1.048622.[id number] 2.16.840.1.879566.3.579.2.76756-52-4913Hsrozsh [id number] 2.16.840.1.376577.3.579.2.43517-04-5968Srmlhnc3921809 2.16.840.1.997030.3.57[id number] 2.16.840.1.754800.3.579.2.03089-33-3698Fovdivf3974522 2.16.840.1.841833.3.579.2.77173-50-3977Avsvckm2109625 2.16.840.1.439060.3.579.2.62251-02-3539Mgkxorl5853046 2.16.840.1.829277.3.579.2.54920-59-5291Dbabglg6780371 2.16.840.1.265463.3.579.[id number] 2.16.840.1.575287.3.579.2.42397-85-1358Jcsbadb83128333 2.16840.1.603397.3.579.2.80874-67-1017Afcfcls662877877 2.160.1.843279.3.579.2.93323-93-5448Znkezju69721746 2.160.1.433511.3.579.2.08152-68-2352Hhgfzpt40711510 2.160.1.038382.3.579.2.14537-04-7149Dxeumpc65073278 2.160.1.098792.3.579.[id number] 2.160.1.105009.3.579.2.990930-51-3855Wimrylw914199003 2..1.097302.3.579.2.492141-35-4155Lqmqokg89338265 2.0.1.906180.3.579.2.617936-95-2533Orinhxa30458736 2.0.1.570250.3.579.2.050076-95-6595Yfijtdr87589430 2.160.1.748436.3.579.2.418535-58-6549Lfpazjo8202617 2.0.1.143391.3.579.2.218859-37-3054Nctnijg4807290 2.16840.1.449829.3.579.2.880650-50-3499Pmxmwkl7576329 2.0.1.105175.3.579.2.800635-38-5898Mmnwgil0919148 2.0.1.745062.3.579.2.977352-66-7125Wuujdrh5742144 2.0.1.432461.3.579.2.623231-37-3457Ksrgpfr1076273 2..1.809[id number] 2.0.1.479771.3.579.2.520Myfjhvf18452474 2.840.1.897465.3.579.2.531 Aljvrqq38514849 2.0.1.260306.3.579.2.093Lttcygh76225338 2.840.1.377721.3.579.2.614Eqiagwh66398067 2.0.1.209908.3.579.2.531 Enlapti84170847 2.840.1.512788.3.579.2.901Enuvotg92618158 2.840.1.502911.3.579.2.780Ejugiwy63661777 2.0.1.747421.3.579.2.531 Afpgnpd20995900 2.0.1.951363.3.579.2.955Jdbqnqt93382275 2.0.1.659535.3.579.2.531 Social History DateTypeDetailFacilityTobacco smoking statusUnknown if ever smokedFisher-Manuel [facility] Start: 08-28-2023 End: 71-83-2577Nma Assigned At [facility] [employer]bench Other Start: 06-07-2014 End: 68-60-7430Lkdvfub smoking status NHISNever smoked tobaccoBarnesville Hospital Start: 06-07-2014 End: 76-26-7342Luzdopn use and exposureSmokeless tobacco non-userRegency Hospital Cleveland Easttart: 08-07-2021 End: 99-39-2450Myqkraf intakeCurrent drinker of alcohol (finding)[facility]: 01-50-4080Fdrpoxf SDOH Alcohol Comment2 glasses of wine per day. [facility]: 15-60-6206Stx Assigned At BirthMaleCGreene Memorial Hospitaltart: 01-15-2021 End: 97-38-7482Vgtkygyx to SARS-CoV-2 (event)Not sureRegency Hospital Cleveland Easttart: 27-62-8162Xittuns SDOH Lpfixfwhs0Rmjstzahf ClinicStart: 52-93-8772Zuhvwfw SDOH Food Ttkfp1Jcpwpdpmf ClinicStart: 70-48-1888Ximzstm SDOH Transport Mrk9Onbdfevrk ClinicStart: 08-28-2023 End: 75-42-0573Ilwie caffeine consumption, 2-3 servings a dayDaily caffeine consumption, 2-3 servings a dayBarnesville HospitalComment on above:1-2 glasses of wine daily;Tobacco smoking statusSumma Healthtart: 05-06-2022 Tobacco smoking status NHISSmoker (finding)[facility] Start: 53-86-4622Urhnnnf CommentdailyUnHolzer Health System Work Phone: Start: 52-59-9276Bqp Assigned At BirthNot on file [facility] Work Phone: Start: 05-23-2022 End: 03-69-8835Vef hard is it for you to pay for the very basics like food, housing, medical care, and heatingNot hard at allBarnesville Hospital(I/We) worried whether (my/our) food would run out before (I/we) got money to buy more.Never trueBarnesville HospitalIn the past 12 months, was there a time when you were not able to pay the mortgage or rent on time?NoCleveland ClinicStart: 01-28-2021 Gender identityIdentifies as male gender (finding)[facility]: 37-76-1575Vsjoko orientationHeterosexual (finding)[facility]: 91-59-9591Blykflh Comment1-2 drinks/dCleveland ClinicHow often to you have a drink containing alcohol?4 or more times a weekNOMS HealthcareHow many standard drinks containing alcohol do you have on a typical day?1 or 2NOMS HealthcareHow often do you have 6 or more drinks on 1 occasion?NeverNOMS HealthcareStart: 13-63-4994Qlipmc orientationBisexual (finding)[facility] HealthcareStart: 08-27-2013 End: 45-69-7943YjtVszf (finding)[facility] Medical Equipment Procedure CodeEquipment CodeEquipment Original TextEquipment IdentifierDates {[id number]{[id number] FDAStart: 17-04-6116VAPBtfgu: 38-21-1267EICGcwlp: 87-77-3614Nygsk Bn Infs Rhbmp-2 5.6ml - [id number]_nlp Start: 96-93-0313Qaeic Bn Canc 15ml Allgrft - [id number]_xthSgubc: 78-92-2807Gufdp Bn Canc 15ml Allgrft - [id number]_ehqIjmot: 12-07-2014 Graft Bn Canc 15ml Allgrft - [id number]_dfrGxrah: 78-47-8000Kpdws Infuse 14mm Small Bovine Collagen Rhbmp-2 23mm Bone Absorbable Sponge - [id number]_impStart: 24-83-7026Xlw-Of-A-Kind Implant - [id number]_zvhLsmdz: 83-63-6797Nzprkld on above:Description: C1713 PLATE JAZMIN WFFVZjw-Bi-V-Kind Implant - [id number]_hrlAounp: 99-11-1047Xrolbml on above:Description: C1713 SCREW BN 1.5MM 97PUInz-Wj-A-Kind Implant - [id number]_ikgJsgcj: 59-56-0923Nsoqsfn on above:Description: C1769 WIRE FIX KRSH SHRP CNN SPNLBlocker Jordana 3 Ti - [id number]_wlqQeedx: 07-82-5853Jou-Of-A-Kind Implant - [id number]_djlNgdzg: 27-21-1704Eoszsgr on above:Description: C1713 SCREW BN SPNL 5MM 25MM Wib-Hy-A-Kind Implant - [id number]_wiiOimlp: 06-12-1468Vfgryih on above: Description: C1713 5.0X20MM EMMJLZmn-Fw-R-Kind Implant - [id number]_cdf Start: 33-36-4468Iscxpwi on above:Description: 14MMX 03N72JW X 4 DEG VERTEBR Prolift Expandable [id number]_figVncmt: 24-47-2319Xyhjo Jordana 3 Titanium Set Cornell Spine - [id number]_ikwIpnqf: 89-64-7395Bfx Jordana 3 6mm Titanium 50mm Spinal Radiolucent - [id number]_mrgWmgku: 12-87-3126Vsb Jordana 3 6mm Titanium 70mm Spinal Radiolucent - [id number]_eqpWkppm: 46-80-0802Pmtiy Jordana 3 Vargas 6.5mm 50mm Bone Polyaxial Nonsterile Spine - [id number]_vul Start: 37-91-2720MYCVxbuo: 15-19-6637NNVMaypw: 70-53-7049JJMFhzjj: 64-32-3127WRP Start: 70-54-6955Uecap Bone Sub 5cc Dbm Inert Reverse Phase Carrier Gel Synthetic Osteosparx - [id number]_uggEeaac: 86-93-6942Ltkuq Infuse 14mm Small Bovine Collagen Rhbmp-2 23mm Bone Absorbable Sponge - [id number]_impStart: 73-33-7061Fscxytimxd Mastergraft Bone Graft Matrix Block Extension Void Filler 5ml - [id number]_adjQremb: 42-92-0004Coarsah Polyaxial Screw 55mm X 8.5mm2590766_impStart: 70-36-9832Xisjcsv Polyaxial Screw 100mm X 8.5mm2590768_impStart: 12-41-6120Cfjnv Jordana 3 Titanium Set Cornell Spine - [id number]_oewUamsi: 91-76-5527Sob Jordana 3 6mm Titanium 100mm Spinal - [id number]_mqjCnmhb: 41-88-2188Idj Jordana 3 6mm Titanium 80mm Spinal Radiolucent - [id number]_qbgUatjn: 54-79-2856Wplfg 9.5mm 50mm Bone Revision Polyaxial Iliosacral - [id number]_cjqYwrdq: 96-39-7760YDJA WOUND I & D STATUS POST TOTAL KNEE Rafael Zheng DO 07/19/19 Unknown Knee RFDAStart: 51-62-4461RYXN WOUND I & D STATUS POST TOTAL KNEE Rafael Zheng DO 07/19/19 Unknown Knee RFDAStart: 62-07-7893FXWP WOUND I & D STATUS POST TOTAL KNEE Rafael Zheng DO 07/19/19 Unknown Knee RFDAStart: 90-89-5338FHVF WOUND I & D STATUS POST TOTAL KNEE Rafael Zheng DO 07/19/19 Unknown Knee RFDAStart: 80-82-7035GKYC WOUND I & D STATUS POST TOTAL KNEE Rafael Zheng DO 07/19/19 Unknown Knee RFDA Start: 96-53-5310Qig [place] 31G X 5 MMStart: 01-11-1814RBZP WOUND I & D STATUS POST TOTAL KNEE Rafael Zheng DO 07/19/19 Unknown Knee RFDAStart: 42-07-5219GIOL WOUND I & D STATUS POST TOTAL KNEE Rafael Zheng DO 07/19/19 Unknown Knee RFDA Start: 75-99-3772UZUJ WOUND I & D STATUS POST TOTAL KNEE Rafael Zheng DO 07/19/19 Unknown Knee RFDAStart: 65-33-0235KREB WOUND I & D STATUS POST TOTAL KNEE Rafael Zheng DO 07/19/19 Unknown Knee RFDAStart: 07-19-2019 Goals DatePatient GoalDesired Activity/State Functional Status AmtoNbdlmozcgnAracvaLizoopuq72-14-2521Lvfeefebnb statusPatient at [facility] Work Phone: [phone] you deaf, or do you have serious difficulty hearingNo 01/06/2022 6:27 PM EDT Radha Escamilla RN [id number] you blind, or do you have serious difficulty seeing, even when wearing glassesNo 01/06/2022 6:27 PM EDT Radha Escamilla RN [facility]07-11-2022Do you have serious difficulty walking or climbing stairsNo 01/06/2022 6:27 PM EDT Radha Escamilla RN [facility] [id number] you have difficulty dressing or bathingNo 01/06/2022 6:27 PM EDT Radha Esc[facility]illa RN [facility] [id number] of a physical, mental, or emotional condition, do you have difficulty doing errands alone such as visiting a physician's office or shoppingNo 01/06/2022 6:27 PM EDT Radha Escamilla RN [facility] Mental Status Hsyx[id number] functionCognitive Status [facility] Phone: [phone] of a physical, mental, or emotional condition, do you have serious difficulty concentrating, remembering, or making decisionsNo 01/06/2022 6:27 PM EDT Radha Escamilla RN [facility] Clinical Notes 07-17-2020 to 04-18-2025 Note Date & [id number] Evaluation note* Diagnosis Onset Date Resolution Status Admit Date Cervical radiculopathy chronicOctober 2024 8:56amChronic migraine without aura with status migrainosus, not intractablechronicOctober 2024 8:56amHistory of stroke chronicOctober 2024 8:56amHyperreflexiachronicOctober 2024 8:56am Lumbosacral radiculopathychronicOctober 2024 8:56amMyalgiachronicOctober 2024 8:56amRestless leg syndromechronicOctober 2024 8:56am [facility] Work Phone: 1(912) 971-629310-21-2025 Evaluation note* Diagnosis Onset Date Resolution Status Admit Date Cervical radiculopathy chronicOctober 2024 8:56amChronic migraine without aura with status migrainosus, not intractablechronicOctober 2024 8:56amHistory of stroke chronicOctober 2024 8:56amHyperreflexiachronicOctober 2024 8:56am Lumbosacral radiculopathychronicOctober 2024 8:56amMyalgiachronicOctober 2024 8:56amRestless leg syndromechronicOctober 2024 8:56amMyalgia chronicOctober 2024 11:33am [facility] Work Phone: [phone]) 894-519409-10-2025 NoteHNO ID: [id number] Author: LOYDA STEELE MD Service: ? Author Type: Physician Type: Progress Notes Filed: 03/08/2025 17:30 Note Text: 03/08/2025 PROMIS Global Health Physical Health Summary Physical health: Fair Everyday physical activity, ability: A little Fatigue: Moderate Pain level: General health: Fair Social activities/roles, ability: Poor Physical Health T-Score Physical Health Percentile No data recorded PROMIS Global Health Mental Health Summary Quality of life: Poor Mental health (mood,thinking): Good Social satisfaction: Poor Emotional problems (anxious,depressed): Often Mental Health T-Score 31.3 (Fair) Mental Health Percentile 3 PHQ-9 Score: 20(Severe Depression) PHQ-9 Self-Harm: Not at all PROMIS Physical Function T-Score 29(Severe Dysfunction) PROMIS Physical Function Percentile 2 PROMIS Pain Interference T-Score 78(Severe) PROMIS Pain Interference Percentile 0 Percentiles provide an indication of how a patient's score ranks in relation to the [place] general population. > 31st percentile is within normal limits or better *< 31st percentile is at least ? SD worse than population, which may be clinically relevant < 16th percentile is at least 1 SD worse than population and warrants attention SPINE SURGERY ESTABLISHED PATIENT I have communicated my name and active licensure. The patient's identity and physical location were verified at the time of this visit. 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 PCP: Jose Valdovinos DO REFERRING PROVIDER: No referring provider defined for this encounter. I spent 15 minutes discussing with the patient his/her symptoms and future plans I have communicated my name and active licensure. The patient's identity and physical location were verified at the time of this visit. 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 Assessment/Plan (S32.009K) Lumbar pseudoarthrosis (primary encounter diagnosis) 1. 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 - Plan to attempt anterior approach first to place a larger spacer and upsize posterior screws; if anterior approach is not feasible, will proceed with posterior approach to upsize existing pelvic screws and add two additional iliac screws for enhanced stabilization. - Discussed 50% likelihood of successful anterior approach and 70% overall success rate for bone healing with planned interventions. - Patient expressed understanding and readiness to proceed. - Surgery to be coordinated with Dr. Cuadra at [facility], anticipated to take approximately 6 hours; target scheduling in April. - Advised patient to continue current prednisone course for shoulder injury; no contraindication for upcoming surgery. - Provided small prescription for Seroquel for sleep disturbances; instructed patient to follow up with primary care provider for ongoing management and necessary cardiac and rhythm monitoring. Patient specific-risk factor flags: Obesity (BMI > 35): Patient's last recorded BMI is > 35 (BMI 39.77 kg/m2). Obesity is associated with higher risk of teresa-operative complications for spine surgery patients. Importance of weight loss was discussed with patient and plan for patient to increase exercise and monitor caloric intake was discussed. Actions Based on the Above Information: Discussed weight management Subjective Chief Complaint: History of Present Illness: Alfredo Jimenez is a 64-year-old male presenting for follow-up regarding L5-S1 nonunion. Alfredo has a history of L5-S1 nonunion and has undergone multiple surgeries, including a recent procedure by Dr. Gonzales to promote bone healing. Despite these interventions, the bone has not healed, causing ongoing pain and discomfort. He is ready to proceed with further surgical options to address the issue. He also reports experiencing vivid dreams that wake him up at night. He was previously prescribed Seroquel, which he found effective in managing these symptoms. He inquires about obtaining a new prescription for Seroquel. Additionally, he recently sustained a shoulder injury and was prescribed prednisone 5 mg for two weeks, which he started yesterday. He seeks confirmation on whether it is safe to continue this medication. Musculoskeletal: (+) low back pain Psychiatric: (+) vivid disturbing dreams Major Risk Factors Notable surgical risk factors: Smoking status: Never BMI:39.77 kg/m2. Obesity Moderate Risk BMI: 39.77 kg/m2 High: BMI > 40 Moderate: BMI 30 (more content not included)... [facility] [id number] History of Present illness Narrative* Loyda Steele MD - 03/08/2025 5:05 PM EDT Images from the original note were not included. 03/08/2025 PROMIS Global Health Physical Health Summary Physical health: Fair Everyday physical activity, ability: A little Fatigue: Moderate Pain level: General health: Fair Social activities/roles, ability: Poor Physical Health T-Score Physical Health Percentile No data recorded PROMIS Global Health Mental Health Summary Quality of life: Poor Mental health (mood,thinking): Good Social satisfaction: Poor Emotional problems (anxious,depressed): Often Mental Health T-Score 31.3 (Fair) Mental Health Percentile 3 PHQ-9 Score: 20(Severe Depression) PHQ-9 Self-Harm: Not at all PROMIS Physical Function T-Score 29(Severe Dysfunction) PROMIS Physical Function Percentile 2 PROMIS Pain Interference T-Score 78(Severe) PROMIS Pain Interference Percentile 0 Percentiles provide an indication of how a patient's score ranks in relation to the [place] general population. > 31st percentile is within normal limits or better *< 31st percentile is at least SD worse than population, which may be clinically relevant < 16th percentile is at least 1 SD worse than population and warrants attention SPINE SURGERY ESTABLISHED PATIENT I have communicated my name and active licensure. The patient's identity and physical location wereverified at the time of this visit. Either the patient or their legal business office representative has been informed of the risks and benefits of -- and alternatives to -- treatment through a remote evaluation andconsents to proceed with the evaluation remotely. PCP: Jose Valdovinos DO REFERRING PROVIDER: No referring provider defined for this encounter. I spent 15 minutes discussing with the patient his/her symptoms and future plans I have communicated my name and active licensure. The patient's identity and physical location wereverified at the time of this visit. Either the patient or their legal business office representative has been informed of the risks and benefits of -- and alternatives to -- treatment through a remote evaluation andconsents to proceed with the evaluation remotely. Assessment/Plan (S32.009K) Lumbar pseudoarthrosis (primary encounter diagnosis) 1. 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 - Plan to attempt anterior approach first to place a larger spacer and upsize posterior screws; if anterior approach is not feasible, will proceed with posterior approach to upsize existing pelvic screws and add two additional iliac screws for enhanced stabilization. - Discussed 50% likelihood of successful anterior approach and 70% overall success rate for bone healing with planned interventions. - Patient expressed understanding and readiness to proceed. - Surgery to be coordinated with Dr. Cuadra at [facility], anticipated to take approximately 6 hours;target scheduling in April. - Advised patient to continue current prednisone course for shoulder injury; no contraindication for upcoming surgery. - Provided small prescription for Seroquel for sleep disturbances; instructed patient to follow up with primary care provider for ongoing management and necessary cardiac and rhythm monitoring. Patient specific-risk factor flags: Obesity (BMI > 35): Patient's last recorded BMI is > 35 (BMI 39.77 kg/m2). Obesity is associated with higher risk of teresa-operative complications for spine surgery patients. Importance of weight loss was discussed with patient and plan for patient to increase exercise and monitor caloric intake was discussed. Actions Based on the Above Information: Discussed weight management Subjective Chief Complaint: History of Present Illness: Alfredo Jimenez is a 64-year-old male presenting for follow-up regarding L5-S1 nonunion. Alfredo has a history of L5-S1 nonunion and has undergone multiple surgeries, including a recent procedure by Dr. Gonzales to promote bone healing. Despite these interventions, the bone has not healed, causing ongoing pain and discomfort. He is ready to proceed with further surgical options to address the issue. He also reports experiencing vivid dreams that wake him up at night. He was previously prescribed Seroquel, which he found effective in managing these symptoms. He inquires about obtaining a new prescription for Seroquel. Additionally, he recently sustained a shoulder injury and was prescribed prednisone 5 mg for two weeks, which he started yesterday. He seeks confirmation on whether it is safe to continue this medication. Musculoskeletal: (+) low back pain Psychiatric: (+) vivid disturbing dreams Major Risk Factors Notable surgical risk factors: Smoking status: Never BMI:39.77 kg/m2. Obesity Moderate Risk BMI: 39.77 kg/m2 High: BMI > 40 Moderate: BMI [...] High:NarxCare >=300 Moderate: 100-299 Normal: 0-99 Depression High Risk High: PHQ-9 >14 Moderate: PHQ-9 5-14 Normal: PHQ-9 < 5 Data from [facility] Epic on prior therapies: Last PT [...] INTERVERTEBRAL DSC SPC W/ARTHRD Objective PHYSICAL EXAM There were no vitals taken for this visit. No physical exam available. Results: [facility]Barn[facility]09[facility] History of Present illness Narrative* RAIMUNDO Abdalla - 03/06/2025 10:30 AM EDT GENERAL HISTORY AND PHYSICAL: NAME: Mary Jimenez : 1960 HISTORY OF PRESENT ILLNESS: Mary Jimenez is an 64 y.o. male is here for orthopedic evaluation increased pain for about 2 weeks after trying to throw a Rios toy to his dog. He is unable to take NSAIDs he is on Plavix he is actually scheduled to see a surgeon about repeating his lower back surgery in a couple days. He is not diabetic. His surgery was done by Dr. Rafael Zheng quite a few years ago and this is the 1st imaging since before his surgery that is been completed in the office. PAST MEDICAL HISTORY: Past Medical History: Diagnosis Date Ankle sprain Arthritis Brachial neuritis or radiculitis 09/07/2014 Carpal tunnel syndrome 08/15/2014 Cervicalgia 01/20/2014 Chronic daily headache 05/19/2018 Chronic headache 02/10/2018 Chronic migraine without aura 07/16/2018 Common migraine 02/28/2014 Degenerative disc disease, cervical 04/21/2017 Depressed 07/01/2017 Disturbance of skin sensation 10/25/2013 Dysuria Fibromyalgia 11/07/2014 Foraminal stenosis of cervical region 02/10/2018 Fracture of ankle Fracture of hand Headache 09/06/2013 Headache, chronic migraine without aura, intractable 10/15/2018 Headache, migraine 07/16/2018 Heart disease [place]x of being [place] [facility] [place] Hypertension Insomnia 04/21/2017 Insomnia, unspecified type 11/06/2014 Intractable migraine, unspecified migraine type 07/16/2018 Low testosterone Lumbosacral disc disease Migraine 02/10/2018 Muscle spasm 11/07/2014 Myalgia 07/01/2017 Neck pain 04/21/2017 Obesity with body mass index (BMI) of 30.0 to 39.9 Obstructive sleep apnea 05/19/2018 Radiculopathy, lumbosacral region 10/25/2013 Rotator cuff syndrome Secondary male hypogonadism Spinal stenosis Stroke (HCC) 05/19/2018 Sweating abnormality Syndrome affecting cervical region 02/28/2014 Tear of meniscus of knee Tension headache 10/05/2014 Testosterone deficiency Transient alteration of awareness 03/22/2015 PAST SURGICAL HISTORY: Past Surgical History: Procedure Laterality Date ANKLE SURGERY Right BACK SURGERY x 3 CARPAL TUNNEL RELEASE IR CVC PICC 09/20/2021 IR [facility] KNEE ARTHROPLASTY KNEE SURGERY Right Arthroscopy x 2 ROTATOR CUFF REPAIR SHOULDER SURGERY Right SPINAL FUSION TOTAL KNEE ARTHROPLASTY Left SOCIAL HISTORY: Social History Occupational History Not on file Tobacco Use Smoking status: Never Smokeless tobacco: Never Vaping Use Vaping status: Never Used Substance and Sexual Activity Alcohol use: Yes Drug use: Never Sexual activity: Not Currently Partners: Female ALLERGIES: Allergies Allergen Reactions Latex Rash Other Reaction(s): blisters, Unknown This patient is not Allergic to Albuterol. Penicillins Anaphylaxis and Swelling Other Reaction(s): Anaphylaxis, throat swelled, Throat swelling, Unknown Buspirone Headache MEDICATIONS: Current Outpatient Medications Medication Instructions Ajovy 225 mg, Subcutaneous, Every 30 days, INJECT 1.5ML (225MG) UNDER THE SKIN EVERY 30 DAYS. ascorbic acid (Vitamin C) 500 MG tablet 1 tablet, Daily aspirin 81 mg, Daily atorvastatin (LIPITOR) 80 mg, Daily baclofen (LIORESAL) 20 mg, Nightly Biotin 5000 MCG sublingual tablet 1 tablet, Daily Calcium Carb-Cholecalciferol (OS-DEISY CALCIUM + D3 PO) 1 tablet, Daily cholecalciferol (Vitamin D3) 25 MCG (1000 UT) tablet 2 tablets, Daily clopidogrel (PLAVIX) 75 mg, Daily Cyanocobalamin (Vitamin B-12) 5000 MCG sublingual tablet 1 tablet, Daily DHEA 50 MG capsule Take by mouth diclofenac sodium 2 g, 4 times daily dicyclomine (BENTYL) 20 mg, 4 times daily PRN doxazosin (CARDURA) 4 mg, Nightly doxepin (SINEQUAN) 10 mg, Nightly DULoxetine (Cymbalta) [address] capsule TAKE 1 CAPSULE IN THE MORNING AND 1 CAPSULE BEFORE BEDTIME ferrous sulfate 325 mg, Daily with breakfast finasteride (PROSCAR) 5 mg, Daily fluticasone (Flonase) 50 MCG/ACT nasal spray 2 sprays, Daily furosemide (LASIX) 40 mg, Daily Garcinia Cambogia-Chromium 500-200 MG-MCG tablet Take by mouth HYDROcodone-acetaminophen (Valatie) 5-325 MG tablet 1 tablet HYDROcodone-acetaminophen (Valatie) 7.5-325 MG tablet 1 tablet, 3 times daily isosorbide mononitrate ER (IMDUR) 30 mg, Daily MAGNESIUM OXIDE 400 PO 1 tablet, Daily methocarbamol (ROBAXIN) 500 mg, Every 8 hours PRN metoprolol succinate XL (TOPROL-XL) 50 mg, Daily nitroglycerin (NITROSTAT) 0.4 mg, Every 5 min PRN nortriptyline (PAMELOR) 50 mg, Oral, Nightly omeprazole (PRILOSEC) 40 mg, Daily before breakfast potassium chloride CR (Klor-Con M20) 20 MEQ ER tablet 20 mEq, Daily predniSONE (Deltasone) 5 MG tablet Take 5 tabs p.o. daily x3 days Take 4 tabs p.o. daily x3 days Take 3 tabs p.o. daily x3 days Take 2 tabs p.o. daily x3 days Take 1 tab p.o. daily x3 days pregabalin (LYRICA) 200 mg, Oral, 3 times daily, Due 09/15/24 promethazine (PHENERGAN) 25 mg, Every 6 hours PRN PSYLLIUM PO Take by mouth rOPINIRole (REQUIP) 1 mg, Oral, Every evening Semaglutide (OZEMPIC, 2 MG/DOSE, SC) 2 mg, Weekly sildenafil (VIAGRA) 50 mg, Daily PRN Syringe/Needle, Disp, (B-D 3CC LUER-JAZMIN SYR 63UX6-3/2) 23G X 1-1/2 3 ML misc 1 Syringe, Does not apply, Every 14 days telmisartan (MICARDIS) 80 mg, Daily testosterone cypionate (DEPO-TESTOSTERONE) 400 mg, Intramuscular, Every 14 days valACYclovir (VALTREX) 500 mg, As needed REVIEW OF SYSTEMS: Review of Systems General: Denies appetite or significant weight change. Denies fever, chills or night sweats. Denies lightheadedness. ENT: Denies dry mouth, sore throat or swollen glands. Denies difficulty swallowing. Denies ear pain. Respiratory: Denies chest pain, SOB, cough or wheezing. Denies asthma or pneumonia symptoms. Cardiovascular: Denies CP or palpitations. No syncope or dyspnea on exertion. Gastrointestinal: Denies nausea or vomiting. Denies heartburn or abdominal pain. Denies diarrhea. Genitourinary: Denies frequent or painful urination. Musculoskeletal: See HPI for comments. Integumentary: Denies rash, lesion or skin infection. Neurologic: Denies dizziness, headache or seizure history. Vitals: Body mass index is 38.72 kg/m . PHYSICAL EXAM: Physical Exam No obvious joint effusion he has no ecchymosis seen. He has forward flexion of 120 degrees passively can extend beyond this slowly. He has abduction to 80 degrees internal rotation to the right SI joint and external rotation from neutral is 60 degrees. Overall his mobility is at his baseline according to him. He has no radicular symptoms below the elbow no weakness of the hand. He has pain in thetrapezium extending towards his left lateral neck. XR shoulder 2+ views right Imaging Result: AP Grashey and scapular Y-view of the right shoulder demonstrates no obvious fracture or subluxation of the reverse shoulder replacement. Orders Placed This Encounter Procedures XR shoulder 2+ views right Reason for exam:: pain XR shoulder 2+ views right Imaging Result: AP Grashey and scapular Y-view of the right shoulder demonstrates no obvious fracture or subluxation of the reverse shoulder replacement. ASSESSMENT: Right shoulder pain, unspecified chronicity PLAN: Continue to work on gentle range of motion of the shoulder and apply cold pack to the region of soreness extending into the lateral neck for 20 minutes several times a day and before bedtime. Take course of prednisone for anti-inflammatory effect and see if time will not improve these symptoms. Would expect resolution of her symptoms over the next 3-4 weeks. Would follow up as needed for any concerns in the future. Tylenol for breakthrough discomfort up to 3000 mg a day divided in 3-4 doses. RAIMUNDO Abdalla documented in this encounterWright Memorial [id number] Instructions* Patient Instructions* RAIMUNDO Abdalla - 03/06/2025 10:30 AM EDT Continue to work on gentle range of motion of the shoulder and apply cold pack to the region of soreness extending into the lateral neck for 20 minutes several times a day and before bedtime. Take course of prednisone for anti-inflammatory effect and see if time will not improve these symptoms. Would expect resolution of her symptoms over the next 3-4 weeks. Would follow up as needed for any concerns in the future. Tylenol for breakthrough discomfort up to 3000 mg a day divided in 3-4 doses. documented in this encounterWright Memorial [id number] History of Present illness Narrative* Rosey Dubose MD - 03/06/2025 9:20 AM EDT Mary Jimenez is a 64 y.o. male No ref. provider found presents with chief complaint of Testicular Hypofunction and Follow-up (LAB) HPI: Interim History 02/2025 Followup visit on 03/06/2025 for hypogonadism. Total testosterone 2.9 (1.75-7.81), PSA 0.14, hemo 16.9. he is on 400 mg 2 ml every other week. Interim History 08/2024 Followup visit on 09/05/2024 for hypogonadism. Total testosterone 2.9 (1.75- 7.81), PSA 0.13, hemo 16.1. he is on 400 mg 2 ml every other week. Interim History 02/2024 Followup visit on 03/07/2024 for hypogonadism. Total testosterone 1.0 (1.75-7.81), PSA 0.9. he is on 300 mg every other week. Interim History 02/2023. Followup visit on 03/09 for hypogonadism. Total testosterone 2.9 (1.75-7.81), HBG 16.3, PSA 0.11. heis on 300 mg every other week, which is 1.5 ml. Interim History 02/2022. Followup visit on 03/04/2022 for hypogonadism. Total testosterone 12.82 (1.75- 7.81) high, but done right after injection . HBG 10, PSA 0.16. he is on 300 mg every other week, which is 1.5 ml. Interim History 03/2021. Followup visit on 04/08/2021 for hypogonadism. Total testosterone 4.22 (1.75- 7.81). HBG 15.6. he elaine 300 mg every other week, which is 1.5 ml. Interim History 10/2020. Followup visit on 11/12/2020 for hypogonadism. Total testosterone 1.44 (1.75- 7.81). PSA 0.08. HBG 14.9. he is on 300 mg every other week, which is 1.5 ml. Interim History 04/2020. Followup visit on 05/08/2020 for hypogonadism. Total testosterone 206 (264-916). PSA 0.08. HBG 14.7. he is on 250 mg every other week, which is 1.25 ml. Interim History 10/2019. Followup visit on 11/07/2019 for hypogonadism. Total testosterone 1.44 (1.75- 7.8). PSA 1. AkolydizocG5g 5.9 - they did not do the regular hemoglobin. He is on 200 every other week, and he is interested in increasing the treatment. I told him we have room to go to 250 mg every other week, which is 1.25 mg. Interim History: 07/17 Followup visit on 07/21/18 for hypogonadism, and he has new problem, sent from Dr. Jose Whyte, for sweating, happen 2-3 times a day, almost half an hour, upper body, and denies skin issues suspicious for any mastocytosis or GI symptoms for carcinoid syndrome, and he also asking for Viagra since he has new girlfriend. Interim History 06/15: Followup visit on 2018 for hypogonadism. He is on testosterone 200 mg, 1 mL q2 weeks. Labs done in May 2018: Total testosterone 3.85 (1.75-7.81). PSA 0.13. Hemoglobin 14.7. INTERIM Follow-up visit 12/01/17 for lab PSA 0.1 total testosterone 3.34 [1.75-7.8], kallpfydbu75.2 is on total testosterone 200 mg every other week HPI: Visit in 06/14 The complaints are reported by the patient The patient is complaining of: breast tenderness, decreased libido, erectile dysfunction, fatigue, infertility, gynecomastia, lack of body hair, lack of drive, feels well, poor muscle insurance, premature ejaculation, prostatic symptoms, weight gain, worsening urinary symptoms Compared to the last visit: stablre The lab finding have includes: still pending Imaging study that had been done include: MRI beofre Associated with the hypogonadism: +high-dose narcotic use , no long- term steroid use, no h/o of orchiectomy or prosate cancer Medication that the patient has used include: testosternoe Response to therapy included: good Side effects of medication includes: none Compliance with the medical regime has been as prescribed The patient denies: good follow-up visit for hypogonadism, is on testosterone 150 mg 0.75 ml every 2 weeks, And he wonders if we can increase the dose SUBJECTIVE: MEDICATIONS: Current Outpatient Medications Medication Instructions Ajovy 225 mg, Subcutaneous, Every 30 days, INJECT 1.5ML (225MG) UNDER THE SKIN EVERY 30 DAYS. ascorbic acid (Vitamin C) 500 MG tablet 1 tablet, Daily aspirin 81 mg, Daily atorvastatin (LIPITOR) 80 mg, Daily baclofen (LIORESAL) 20 mg, Nightly Biotin 5000 MCG sublingual tablet 1 tablet, Daily Calcium Carb-Cholecalciferol (OS-DEISY CALCIUM + D3 PO) 1 tablet, Daily cholecalciferol (Vitamin D3) 25 MCG (1000 UT) tablet 2 tablets, Daily clopidogrel (PLAVIX) 75 mg, Daily Cyanocobalamin (Vitamin B-12) 5000 MCG sublingual tablet 1 tablet, Daily DHEA 50 MG capsule Take by mouth diazePAM (VALIUM) 5 mg, Oral, Once, 30 minutes prior to MRI. 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 diclofenac sodium 2 g, 4 times daily dicyclomine (BENTYL) 20 mg, 4 times daily PRN doxazosin (CARDURA) 4 mg, Nightly doxepin (SINEQUAN) 10 mg, Nightly DULoxetine (Cymbalta) [address] capsule TAKE 1 CAPSULE IN THE MORNING AND 1 CAPSULE BEFORE BEDTIME ferrous sulfate 325 mg, Daily with breakfast finasteride (PROSCAR) 5 mg, Daily fluticasone (Flonase) 50 MCG/ACT nasal spray 2 sprays, Daily fremanezumab (Ajovy) 225 MG/1.5ML prefilled syringe INJECT 225MG (1 SYRINGE) UNDER THE SKIN ONE TIME MONTHLY furosemide (LASIX) 40 mg, Daily Garcinia Cambogia-Chromium 500-200 MG-MCG tablet Take by mouth HYDROcodone-acetaminophen (Valatie) 5-325 MG tablet 1 tablet HYDROcodone-acetaminophen (Valatie) 7.5-325 MG tablet 1 tablet, 3 times daily isosorbide mononitrate ER (IMDUR) 30 mg, Daily MAGNESIUM OXIDE 400 PO 1 tablet, Daily methocarbamol (ROBAXIN) 500 mg, Every 8 hours PRN metoprolol succinate XL (TOPROL-XL) 50 mg, Daily nitroglycerin (NITROSTAT) 0.4 mg, Every 5 min PRN nortriptyline (PAMELOR) 50 mg, Oral, Nightly omeprazole (PRILOSEC) 40 mg, Daily before breakfast potassium chloride CR (Klor-Con M20) 20 MEQ ER tablet 20 mEq, Daily pregabalin (LYRICA) 200 mg, Oral, 3 times daily, Due 09/15/24 promethazine (PHENERGAN) 25 mg, Every 6 hours PRN PSYLLIUM PO Take by mouth rOPINIRole (REQUIP) 1 mg, Oral, Every evening Semaglutide (OZEMPIC, 2 MG/DOSE, SC) 2 mg, Weekly sildenafil (VIAGRA) 50 mg, Daily PRN Syringe/Needle, Disp, (B-D 3CC LUER-JAZMIN SYR 75NP4-3/2) 23G X 1-1/2 3 ML misc 1 Syringe, Does not apply, Every 14 days telmisartan (MICARDIS) 80 mg, Daily testosterone cypionate (DEPO-TESTOSTERONE) 400 mg, Intramuscular, Every 14 days valACYclovir (VALTREX) 500 mg, As needed ALLERGIES: Allergies Allergen Reactions Latex Rash Other Reaction(s): blisters, Unknown This patient is not Allergic to Albuterol. Penicillins Anaphylaxis and Swelling Other Reaction(s): Anaphylaxis, throat swelled, Throat swelling, Unknown Buspirone Headache Past Medical History: Diagnosis Date Brachial neuritis or radiculitis 09/07/2014 Carpal tunnel syndrome 08/15/2014 Cervicalgia 01/20/2014 Chronic daily headache 05/19/2018 Chronic headache 02/10/2018 Chronic migraine without aura 07/16/2018 Common migraine 02/28/2014 Degenerative disc disease, cervical 04/21/2017 Depressed 07/01/2017 Disturbance of skin sensation 10/25/2013 Dysuria Fibromyalgia 11/07/2014 Foraminal stenosis of cervical region 02/10/2018 Headache 09/06/2013 Headache, chronic migraine without aura, intractable 10/15/2018 Headache, migraine 07/16/2018 Hx of being [place] [facility] [place] Insomnia 04/21/2017 Insomnia, unspecified type 11/06/2014 Intractable migraine, unspecified migraine type 07/16/2018 Low testosterone Migraine 02/10/2018 Muscle spasm 11/07/2014 Myalgia 07/01/2017 Neck pain 04/21/2017 Obesity with body mass index (BMI) of 30.0 to 39.9 Obstructive sleep apnea 05/19/2018 Radiculopathy, lumbosacral region 10/25/2013 Secondary male hypogonadism Stroke (HCC) 05/19/2018 Sweating abnormality Syndrome affecting cervical region 02/28/2014 Tension headache 10/05/2014 Transient alteration of awareness 03/22/2015 Past Surgical History: Procedure Laterality Date ANKLE SURGERY Right BACK SURGERY x 3 IR CVC PICC 09/20/2021 IR CVC PICC KNEE SURGERY Right Arthroscopy x 2 SHOULDER SURGERY Right TOTAL KNEE ARTHROPLASTY Left REVIEW OF SYMPTOMS: 14 POINT OF SYSTEM REVIEWED AND NEGATIVE Visit Vitals BP 120/80 Pulse 78 Resp 18 Ht 5' 9.5 Wt 266 lb SpO2 94% BMI 38.72 kg/m Smoking Status Never BSA 2.44 m Physical Exam Constitutional: Appearance: Normal appearance. He is normal weight. HENT: Head: Normocephalic and atraumatic. Right Ear: External ear normal. Nose: Nose normal. Mouth/Throat: Pharynx: Oropharynx is clear. Eyes: Extraocular Movements: Extraocular movements intact. Pupils: Pupils are equal, round, and reactive to light. Cardiovascular: Rate and Rhythm: Normal rate and regular rhythm. Pulmonary: Effort: Pulmonary effort is normal. Abdominal: General: Abdomen is flat. Palpations: Abdomen is soft. Musculoskeletal: General: Normal range of motion. Skin: General: Skin is warm. Neurological: General: No focal deficit present. Mental Status: He is alert. Psychiatric: Mood and Affect: Mood normal. Behavior: Behavior normal. ASSESSMENT AND PLAN: Assessment/Plan Diagnoses and all orders for this visit: Secondary male hypogonadism - testosterone cypionate (Depo-Testosterone) 200 MG/ML injection; Inject 2 mL (400 mg) into the shoulder, thigh, or buttocks every 14 (fourteen) days - PSA; Future - Hemoglobin; Future - Testosterone; Future Continue his testosterone cypionate 400 mg 2 mL every 2 weeks. Sweating disease Encounter for dietary consultation Class 2 severe obesity due to excess calories with serious comorbidity and body mass index (BMI) of38.0 to 38.9 in adult ([facility]) Diet and exercise reviewed with the patient Follow up in about 6 months (around 09/03/2025). documented in this encounterWright Memorial HospitalEhtrwaosnl92-70-6148 NoteHNO ID: [id number] Author: ANIBAL KUMAR MD Service: ? Author Type: Physician Type: Progress Notes Filed: 03/01/2025 10:24 Note Text: Chief Complaint: for evaluation on the planned ALIF surgery History of Present Illness: Alfredo Jimenez is [...] EXAM: BP 134/86 Pulse 75 Temp 36.7 ?C (98.1 ?F) (Temporal) Ht 176.5 cm (5' 9.49 ) Wt 123.9 kg (273 lb 2.4 oz) SpO2 97% BMI 39.77 kg/m? General appearance: Well appearing, alert, in no [...] grossly intact. ASSESSMENT: no h/o DVT, PE, LA, or CVA yes anticoagulation: plavix PLAN: - Because of the previous ALIF surgery, possible adhesion may be encountered during the surgery. Explain the possibility of aborting the surgery because of adhesion as well as the possibility of vascular injury during the exposure. - CT: no calcification on CIAs - Will discuss with Dr. Steele for further planning - I spent 45 minutes on the chart review and interviewing with the patient. Anibal Kumar [facility]09-03-2025 History of Present illness Narrative* Anibal Kumar MD - 03/01/2025 10:13 AM EDT Chief Complaint: for evaluation on the planned ALIF surgery History of Present Illness: Alfredo Jimenez is [...] EXAM: BP 134/86 Pulse 75 Temp 36.7 C (98.1 F) (Temporal) Ht 176.5 cm (5' 9.49 ) Wt 123.9 kg (273 lb 2.4 oz) SpO2 97% BMI 39.77 kg/m General appearance: Well appearing, alert, in no [...] grossly intact. ASSESSMENT: no h/o DVT, PE, LA, or CVA yes anticoagulation: plavix PLAN: - Because of the previous ALIF surgery, possible adhesion may be encountered during the surgery. Explain the possibility of aborting the surgery because of adhesion as well as the possibility of vascular injury during the exposure. - CT: no calcification on CIAs - Will discuss with Dr. Steele for further planning - I spent 45 minutes on the chart review and interviewing with the patient. Anibal Kumar MD * Anibal Kumar MD - 02/13/2025 8:00 AM EDT UROLOGY SURGICAL Evaluation SERVICE DATE: 02/13/2025 SERVICE TIME: Seen by Dr. Kumar documented in this encounterBarnesville Hospital08-28-2025 Telephone encounter Note * Telephone Encounter - Yolanda Conde - 02/23/2025 9:30 AM EDT Pt phoned to follow up with surgery scheduling. Pt unaware of appt 03/08, have relayed this to Pt. Pt asking if needs to bring anything to appt. Please advise Pt phone #[phone] [facility]08-28-2025 Miscellaneous Notes* Telephone Encounter - Yolanda Conde - 02/23/2025 9:30 AM EDT Pt phoned to follow up with surgery scheduling. Pt unaware of appt 03/08, have relayed this to Pt. Pt asking if needs to bring anything to appt. Please advise Pt phone #[phone] documented in this encounterBarnesville Hospital08-25-2025 Telephone encounter Note * Telephone Encounter - Yolanda Conde - 02/20/2025 10:01 AM EDT Pt phoned to follow up w results of recent test. Please call and advise Pt phone #[phone] [facility]08-25-2025 Miscellaneous Notes* Telephone Encounter - Yolanda Conde - 02/20/2025 10:01 AM EDT Pt phoned to follow up w results of recent test. Please call and advise Pt phone #[phone] documented in this encounterBarnesville Hospital08-18-2025 NoteHNO ID: [id number] Author: ANIBAL KUMAR MD Service: ? Author Type: Physician Type: Progress Notes Filed: 03/01/2025 10:24 Note Text: UROLOGY SURGICAL Evaluation SERVICE DATE: 02/13/2025 SERVICE TIME: [facility] Telephone encounter Note* Telephone Encounter - Sidra Duval - 02/09/2025 1:24 PM EDT Pt called - wondering if Dr. Steele will prescribe another steroid pack for his back - said his back is in terrible pain - #[phone] [facility]08-14-2025 Miscellaneous Notes* Telephone Encounter - Sidra Duval - 02/09/2025 1:24 PM EDT Pt called - wondering if Dr. Steele will prescribe another steroid pack for his back - said his back is in terrible pain - #[phone] documented in this encounterBarnesville Hospital08-07-2025 [place] [id number] Cardiac Catheterization Note Signed Patient: Mary Jimenez MR#: [id number] : 1960 Acct:[id number] Age/Sex: 64 / M Adm Date: 5 Loc: Room: Type: [facility] Attending Dr: Danisha Bran MD Copies to: DO Danisha Bhatia MD~ Cardiac Catheterization (Left) DATE/PROVIDER 02/02/2025 Danisha Bran MD INDICATION Repeat presentation with symptoms consistent with exertional angina. Despite. Of adequate medical therapy and negative nonischemic evaluation the patient continued to complain of exertional chest pain he was advised to proceed with heart catheter resolve this issue considering his risk factors PRE PROCEDURE Cardiology Pre-Op Diagnosis: As above ASA Classification: 3 Mallampati Score: Class II POST PROCEDURE Cardiology Post-Op Diagnosis: Other (No significant obstructive coronary artery disease) PROCEDURE PROCEDURE MEDICATIONS: 2 mg Versed 100 mcg of fentanyl 50 mg of Benadryl 4000 units of IV heparin Several doses of intra-arterial nicardipine Approach: Radial - Rt Left cardiac catheterization Coronary angiography Left ventriculogram Conscious sedation Cardiac fluoroscopy Hemodynamic measurement PROCEDURE DETAILS After informed consent was obtained by explaining risk, benefit and alternative. Patient signed informed consent. Patient was brought to the Investigative Assistant where theright radial artery was draped and prepared in the regular sterile fashion. By using the micropuncture technique a 6 [place] arterial sheath was placed after the first stick. Subsequently all catheter advances and exchanges were made over guidewire. Initially I used 5 [place] JL 3.5 to engage the left main and imaged the left main. Then thecatheter was exchanged and a 5 [place] JR was advanced across the aortic valve. Hemodynamic measurement and left ventriculogram was performed then the catheter was repositioned and engaged selectivelythe right coronary artery which was imaged. After procedure were done all catheter removed. HEMOSTASIS Obtained by applying quick clot without any complication SUMMARY OF FINDINGS Dominance: Right Left Main: Left main was large size vessel bifurcates LAD and left circumflex left main hasno significant disease LAD-Prox: The LAD was large size vessel gives several diagonal branches the LAD at its distal portion has 20 to 40% luminal irregularity CIRC- Prox: Moderate size vessel without significant disease RCA: Very large dominant vessel gives apical branches without significant disease LEFT VENTRICLE EF %: 65 Left ventriculogram obtained standard 30 degree ELLIS projection. LVEF appears normal in the range of60-65% normal regurgitation was seen VALVE-AORTIC Aortic Valve Disease: No VALVE-MITRAL Mitral Valve Disease: No HEMODYNAMICS Aortic pressure was 120/70 LV pressure was 120/10 with LVEDP of 10 no significant gradient was noted in theaortic valve on pullback FLUOROSCOPY No abnormality were seen IMPRESSION 1. No hemodynamically significant epicardial coronary artery disease 2. Normal LV systolic function with LVEF around 60% 3. No mitral regurgitation or aortic stenosis 5. Normal hemodynamics RECOMMENDATIONS 1. Medical management 2. If chest pain persist consider workup for none cardiac chest pain 3. Continue with aggressive approach risk factor modification Documented By: Danisha Bran MD 02/02/25 1224 Signed By: 02/02/25 1229 [facility]07-31-2025 History of Present illness Narrative * Danisha Bran MD - 01/26/2025 3:50 PM EDT Chief Complaint Patient presents with Follow-up 8 [...] the change in his anginal pattern and thefact he is having symptoms at low exercise [...] days furosemide (LASIX) 40 mg, Daily HYDROcodone-acetaminophen (Valatie) 7.5-325 mg tablet 1 tablet, 3 times [...] onabotulinumtoxinA (BOTOX INJ) Every 90 days pancrelipase, Aop-Lziy-Novh, (Creon) 36,000-114,000- 180,000 unit capsule,delayed release(DR/EC) capsule [...] my name below, Mary Alvarado LPN. , Scribe attest that this documentation has [...] exam, discussion and plan. documented in this encounterHolmes County [facility] Work Phone: 1(180) 956-550507-31-2025 Instructions* Patient Instructions* David Hernández MA - 01/26/2025 3:50 PM [...] Fall Prevention Education Given documented in this encounterHolmes County [facility] Work Phone: 1(655) 892-489907-18-2025 Telephone encounter Note* Telephone Encounter - Greta Nunez RN - 01/13/2025 8:08 AM EDT Will address in MyChart encounter. [facility]07-18-2025 Miscellaneous Notes* Telephone Encounter - Greta Nunez RN - 01/13/2025 8:08 AM EDT Will address in MyChart encounter. * Telephone Encounter - Sidra Duval - 01/09/2025 4:05 PM EDT Pt called - said when he met with Dr. Steele, he promised that he would give him a call today after consulting with another surgeon and he hasn't heard anything so he decided to call us - would like a call back #[phone] documented in this encounterBarnesville Hospital07-14-2025 Telephone encounter Note * Telephone Encounter - Sidra Duval - 01/09/2025 4:05 PM EDT Pt called - said when he met with Dr. Steele, he promised that he would give him a call today after consulting with another surgeon and he hasn't heard anything so he decided to call us - would like a call back #[phone] [facility]07-09-2025 NoteHNO ID: [id number] Author: LOYDA STEELE MD Service: ? Author Type: Physician Type: Progress Notes Filed: 01/04/2025 13:14 Note Text: SPINE SURGERY ESTABLISHED PATIENT PCP: Jose Valdovinos DO REFERRING PROVIDER: Loyda Steele [address] [facility] [address] Assessment/Plan (S32.009K) Lumbar pseudoarthrosis (primary encounter diagnosis) [...] 5-14 Normal: PHQ-9 < 5 Data from [facility] Epic on prior therapies: Last PT [...] with some evidence of hardware loosening at S1.Baystate Noble HospitalScurlffo26-87-2659 History of Present illness Narrative * Loyda Steele MD - 01/04/2025 11:26 AM EDT Images from the original note were not included. SPINE SURGERY ESTABLISHED PATIENT PCP: Jose Valdovinos DO REFERRING PROVIDER: Loyda Steele [address] [facility] [address] Assessment/Plan (S32.009K) Lumbar pseudoarthrosis (primary encounter diagnosis) 1. Lumbar pseudoarthrosis (S32.009K) - Persistent severe back pain, exacerbated by standing and walking, with difficulty sleeping due todiscomfort. No leg symptoms reported. - Imaging reveals partial fusion with some areas appearing loose, including the S1 region and certain screws. - Discussed surgical intervention involving anterior approach to place a larger spacer and posterior approach to upsize screws for increased stability. - Explained potential risks of anterior approach due to previous surgery and possible scarring, butnoted favorable anatomy for the procedure. - Will [...] 5-14 Normal: PHQ-9 < 5 Data from [facility] Epic on prior therapies: Last PT [...] hardware loosening at S1. documented in this encounterBarnesville Hospital06-23-2025 Evaluation note* Author Rafael Holbrook [facility] HospitalAuthoredAtrium Health Mercy 2024 10:35amHighest weight: 311.0 lbs. He is down 35.9 lbs. today. Start weight: [...] understands the importance of working with our surgical consultant. He previously was not very active because of his back but is now doing a home program called [employer] which is an online exercise program through [...] whole foods and work closely with the pad hand. He had a negative recent colonoscopy. He should continue to take time to meal prep. He is still doing very good with regular exercise 1 hour a day at [facility] doing both strength and cardio. He should continue to treat with long-term lifestyle changes of improved nutrition, increased exercise and activity, stress reduction, adequate sleep and behavioral modification versus short-term dieting. We cannot consider phentermine with his history of possible CAD. He has considered the bariatric surgery program at the [facility]. 3. Prediabetes he had an A1c up to 6.2 but recent A1c better now normal at 5.4/he has had multiple blood sugars that have been in the diabetic range but may not been fasting. He notes at the [facility] he told he was diabetic. Continue [...] healthy exercise is now working out at [facility] every other day and weight loss. He [...] his PCP Dr. Valdovinos, cardiology and GI. [facility] Work Phone: 1(970) 445-354606-11-2025 NoteHNO ID: [id number] Author: AISLINN NICKERSON MD Service: ? Author [...] completed when applicable. MERON Contreras. Aislinn Nickerson, [facility]06-11-2025 History of Present illness Narrative* Aislinn Nickerson [...] Plan of Care Visit completed when applicable. NAHOMI Contreras.Remi. Aislinn Nickerson MD documented in this encounterBarnesville Hospital06-09-2025 Telephone encounter Note * Telephone Encounter - Becca Herbert LPN - 12/05/2024 1:11 PM EDT YES A NEW RX NEEDS TO BE SENT TO [facility]. THANKS [facility] HospitalKgkyjmamfm36-44-7978 Miscellaneous Notes* Telephone Encounter - Becca Herbert LPN - 12/05/2024 1:11 PM EDT YES A NEW RX NEEDS TO BE SENT TO [facility]. THANKS * Telephone Encounter - Becca Herbert [...] order to release more. documented in this encounterWright Memorial HospitalYnmurmymzk55-30-2118 Hospital Discharge instructions Patient Education 12/05/2024 09:41:51 Testicular Self-Exam, Qxlh-tu-[id number] Testicular Self-Exam A testicular self-exam means looking [...] provider. Document Revised: 03/30/2023 Document Reviewed: 03/30/2023 [employer] Patient Education 2023 [employer]. Follow Up Care 11/30/2024 08:39:05 With:RODRICK MACIAS, Gilmar Nunez, URL Address: When: only if needed [facility] Dmitriy [id number] Telephone encounter Note* Telephone Encounter - Becca Herbert LPN - 12/05/2024 10:26 AM EDT THE PT'S NOTE STATED HE WAS TAKING 300MG AND THEN IT WENT TO 400MG SO IM NOT SURE IF THAT WAS JUST A MISTAKE. HE WILL NEED A NEW RX SENT WITH THE CORRECT INSTRUCTIONS AND DAY SUPPLY. THANKS [facility] HospitalWvyhzbnwte97-62-8350 NoteUrology Office/Clinic Note Chief Complaint New Pt. Referral HPI Staff New Pt. Referral per Jose Valdovinos DO due to abnormal [place] [facility] [place] Denies any urinary symptoms History [...] at posterior scrotum to right of midline. Measures-[id number]. Not able to palpate on exam 2. [...] needed Additional Instructions: Patient Education Testicular Self-Exam, Bngb-ny-Vool Problem List/Past Medical History Ongoing Arthritis ASCVD [...] cap(s), Oral, Daily fluticasone Nasal 0.05 mg/inh [place], 2 spray(s), Nasal, BID Green Tea Capsule, [...] Milk Thistle oral capsu (more content not included)...[facility] HospitalComment on above:Result Comment: Electronically Signed By: Gilmar EDUARDO MD\.br\Date and Time Signed: 12/05/24 09:46 EDT\.br\Electronically Co- Signed By: Carmen Castillo\.br\Date and Time Co-Signed: 12/05/24 09:42 EDT 12-05-2024 [...] Reviewed: 03/30/2023 Elsevier Patient Education ? 2023 [employer].[facility] 12-01-2024 Telephone encounter Note* Telephone Encounter - Mickey Renteriaarthy - 12/01/2024 11:14 AM EDT [facility] release [facility] vials says there's something in the script stopping from releasing more. Please give them a call to see what they need in order to release more. [facility] HospitalGzshmhjbez33-01-5599 NoteHNO ID: [id number] Author: LOYDA STEELE MD Service: ? Author Type: Physician Type: Progress Notes Filed: 11/30/2024 18:32 Note Text: SPINE SURGERY ESTABLISHED PATIENT PCP: Jose Valdovinos DO REFERRING PROVIDER: Loyda Steele [address] [facility] [address] Assessment/Plan (M54.16) Lumbar radiculopathy (primary encounter diagnosis) 1. Lumbar radiculopathy (M54.16) - Persistent bilateral lower back pain, predominantly on the left side, with a history of incomplete bone healing at L5-S1 as per July CT scan. - Ordered lumbar epidural steroid injection to be performed by Dr. Alba at [facility]. - Prescribed a course of oral steroids [...] a location closer to his home in [place]. Neck: (-) neck pain Musculoskeletal: (+) low [...] 5-14 Normal: PHQ-9 < 5 Data from [facility] Epic on prior therapies: Last PT [...] - Evidence of partial scar formation at L5-L9ZjabaneoBaystate Noble HospitalQhgjhaqj55-37-7163 History of Present illness Narrative* Loyda Steele MD - 11/30/2024 6:30 PM EDT Images from the original note were not included. SPINE SURGERY ESTABLISHED PATIENT PCP: Jose Valdovinos DO REFERRING PROVIDER: Loyda Steele [address] [facility] [address] Assessment/Plan (M54.16) Lumbar radiculopathy (primary encounter diagnosis) 1. Lumbar radiculopathy (M54.16) - Persistent bilateral lower back pain, predominantly on the left side, with a history of incomplete bone healing at L5-S1 as per July CT scan. - Ordered lumbar epidural steroid injection to be performed by Dr. Alba at [facility]. - Prescribed a course of oral steroids [...] a location closer to his home in [place]. Neck: (-) neck pain Musculoskeletal: (+) low [...] 5-14 Normal: PHQ-9 < 5 Data from [facility] Epic on prior therapies: Last PT [...] scar formation at L5-S1 documented in this encounterBarnesville Hospital05-28-2025 Radiology Diagnostic [facility] [address] [place] [address] Ultrasound Report Signed Patient: Mary Jimenez MR#: [id number] : 1960 Acct:[id number] Age/Sex: 64 / M ADM Date: 5 Loc: Room: Type: [facility] Attending Dr: Jose Valdovinos DO Ordering Provider: [...] Chambers M.D. 11/23/2024 12:18 PM Dictation Location: [place] [address] Tech: Amarilis Guardado Transcribed By: ISIDRO 11/23/24 1218 Dictated By: Vivian Chambers MD 11/23/24 1214 Signed By: 11/23/24 1218 [facility] Work Phone: 1(180) 715-676605-01-2025 History of Present illness Narrative* RAIMUNDO Garcia [...] on left side of neck. Pain today 6/10 During consent for the procedure, the patient [...] well. Ewa Rodriguez PA-C documented in this encounterWright Memorial HospitalYgywtevdyz35-35-3115 Telephone encounter Note* Telephone Encounter - Christine Gutierrez PA-C - 10/06/2024 12:51 PM EDT I called return phone number on 10/06/2024 at 12:51 PM. Underwent Revision L4-pelvis instrumented fusion on 12/31/[address] Steele. They are interested in injection history. Requested operative report from C7-T1 interlaminar injection with Dr. Bhandari be faxed to them. [phone] Note faxed. [facility]04-10-2025 Miscellaneous Notes* Telephone Encounter - Christine Gutierrez PA-C - 10/06/2024 12:51 PM EDT I called return phone number on 10/06/2024 at 12:51 PM. Underwent Revision L4-pelvis instrumented fusion on 12/31/[address] Steele. They are interested in injection history. Requested operative report from C7-T1 interlaminar injection with Dr. Bhandari be faxed to them. [phone] Note faxed. * Telephone Encounter - Sidra Duval - 10/06/2024 8:46 AM EDT Mary from [facility] calling regarding pt injections - needs to speak with someone regarding what procedures pt has had done - would like to speak with someone to confirm - #[phone] documented in this encounterBarnesville Hospital04-10-2025 Telephone encounter Note * Telephone Encounter - Sidra Duval - 10/06/2024 8:46 AM EDT Mary from [facility] calling regarding pt injections - needs to speak with someone regarding what procedures pt has had done - would like to speak with someone to confirm - #[phone] [facility]04-02-2025 Evaluation note* Author Rafael Holbrook [facility] HospitalAuthoredApril 2024 3:21pmHighest weight: 311.0 lbs. He is down 32.8 lbs. today. Start weight: [...] whole foods and work closely with the pad hand. He had a negative recent colonoscopy. He should continue to take time to meal prep. He is still doing very good with regular exercise 1 hour a day at [facility] doing both strength and cardio. He should continue to treat with long- term lifestyle changes of improved nutrition, increased exercise and activity, stress reduction, adequate sleep and behavioral modification versus short-term dieting. We cannot consider phentermine with his history of possible CAD. He has considered the bariatric surgery program at the [facility]. 3. Prediabetes he had an A1c up to 6.2 but recent A1c better now normal at 5.4/he has had multiple blood sugars that have been in the diabetic range but may not been fasting. He notes at the [facility] he told he was diabetic. Continue [...] healthy exercise is now working out at [facility] every other day and weight loss. He [...] Valdovinos, cardiology or GI. Author Rafael Holbrook [facility] HospitalAuthoredJanuary 2024 2:54pmHighest weight: 311.0 lbs. He is down 40.0lbs. today. Start weight: 304.1 [...] whole foods and work closely with the pad hand. He had a negative recent colonoscopy. He should continue to take time to meal prep. He is still doing very good with regular exercise 1 hour a day at [facility] doing both strength and cardio. He should continue to treat with long-term lifestyle changes of improved nutrition, increased exercise and activity, stress reduction, adequate sleep and behavioral modification versus short-term dieting. We cannot consider phentermine with his history of possible CAD. He has considered the bariatric surgery program at the [facility]. 3. Prediabetes he had an A1c up to 6.2 but recent A1c better now normal at 5.4/he has had multiple blood sugars that have been in the diabetic range but may not been fasting. He notes at the [facility] he told he was diabetic. Continue [...] healthy exercise is now working out at [facility] every other day and weight loss. He [...] his PCP Dr. Valdovinos, cardiology or GI. [facility] Work Phone: 1(717) 184-355804-02-2025 Evaluation note* Author Rafael Holbrook [facility] HospitalAuthoredApril 2024 3:21pmHighest weight: 311.0 lbs. He is down 32.8 lbs. today. Start weight: [...] whole foods and work closely with the pad hand. He had a negative recent colonoscopy. He should continue to take time to meal prep. He is still doing very good with regular exercise 1 hour a day at [facility] doing both strength and cardio. He should continue to treat with long- term lifestyle changes of improved nutrition, increased exercise and activity, stress reduction, adequate sleep and behavioral modification versus short-term dieting. We cannot consider phentermine with his history of possible CAD. He has considered the bariatric surgery program at the [facility]. 3. Prediabetes he had an A1c up to 6.2 but recent A1c better now normal at 5.4/he has had multiple blood sugars that have been in the diabetic range but may not been fasting. He notes at the [facility] he told he was diabetic. Continue [...] healthy exercise is now working out at [facility] every other day and weight loss. He [...] his PCP Dr. Valdovinos, cardiology or GI. [facility] Work Phone: 1(609) 502-636303-26-2025 Telephone encounter Note* Telephone Encounter - Anni Douglas RN - 09/21/2024 2:56 PM EDT Left message on voicemail for patient to call office back regarding Post injection call. Injection was done on 09/15. [employer] message was already sent on 09/17 [facility]03-26-2025 Miscellaneous Notes* Telephone Encounter - Anni Douglas [...] a call back to go through questions. [employer] message also sent to patient and informed he can respond through message as well. documented in this encounterBarnesville Hospital03-22-2025 Telephone encounter Note * Telephone Encounter - Li Rosenbaum LPN - 09/17/2024 9:46 AM EDT Post Spine Injection phone call: 09/17/24 Called patient to review post procedure questions, but patient unavailable. Left vm for patient to give office a call back to go through questions. [employer] message also sent to patient and informed he can respond through message as well. [facility]03-20-2025 Telephone encounter Note* Telephone Encounter - Kristi Rehman - 09/15/2024 1:13 PM EDT Recvd: Med hold clearance DOS 09/12/24 [facility]03-20-2025 Miscellaneous Notes* Telephone Encounter - Kristi Rehman - 09/15/2024 1:13 PM EDT Recvd: Med hold clearance DOS 09/12/24 documented in this encounterBarnesville Hospital03-12-2025 Telephone encounter Note * Telephone Encounter - Li Rosenbaum LPN - 09/07/2024 2:40 PM EDT No response from patient. Closing Encounter. [facility]03-12-2025 Miscellaneous Notes* Telephone Encounter - Li Rosenbaum [...] 7 days before procedure documented in this encounterBarnesville Hospital03-12-2025 Telephone encounter Note * Telephone Encounter - Li Rosenbaum LPN - 09/07/2024 10:17 AM EDT 4th Attempt to call patient. LVM for patient to give office a call back to review instructions and to discuss Plavix. [facility]03-11-2025 Telephone encounter Note* Telephone Encounter - Li Rosenbaum LPN - 09/06/2024 1:14 PM EDT 3rd attempt to contact patient regarding his procedure 09/15/24 and to discuss medication. Patient not available. LVM to give office a call back. Also called Alternate Contact in his chart and LVM for them to have him give our office a call. [facility]03-10-2025 Telephone encounter Note* Telephone Encounter - Li Rosenbaum LPN - 09/05/2024 10:16 AM EDT 2nd attempt to call patient. LVM for patient to give office a call back regarding His spine procedure on 09/15/24. [facility]03-10-2025 Telephone encounter Note* Telephone Encounter - Li Rosenbaum LPN - 09/05/2024 9:[address] Bhandari: If he holds the Plavix for 7 days I will do the injection. [facility]03-08-2025 Telephone encounter Note* Telephone Encounter - Li Rosenbaum LPN - 09/03/2024 10:51 AM EST Called and left patient a message for patient to give office a call back regarding his spine procedure on 09/15/24. Patient med list states he is taking Plavix need patient to give office a call back to inform he needs to stop 7 days before procedure [facility]03-07-2025 Telephone encounter Note* Telephone Encounter - Li Rosenbaum LPN - 09/02/2024 2:12 PM EST [employer] message sent to patient with Procedure Instructions [facility]03-07-2025 Miscellaneous Notes* Telephone Encounter - Li Rosenbaum LPN - 09/02/2024 2:12 PM EST [employer] message sent to patient with Procedure Instructions documented in this encounterBarnesville Hospital02-27-2025 Telephone encounter Note * Telephone Encounter - Lela Torres - 08/25/2024 11:40 AM EST Pt called; says his ride cancelled on him this morning; he cannot come for the injection procedure today. Pt wants to reschedule his injection for carmen. Transferred patient to [place] scheduling team at ph: [phone] [facility]02-27-2025 Miscellaneous Notes* Telephone Encounter - Lela Torres - 08/25/2024 11:40 AM EST Pt called; says his ride cancelled on him this morning; he cannot come for the injection procedure today. Pt wants to reschedule his injection for carmen. Transferred patient to [place] scheduling team at ph: [phone] documented in this encounterBarnesville Hospital02-18-2025 Telephone encounter Note * Telephone Encounter - Li Rosenbaum LPN - 08/16/2024 9:[address] Rodriges's office at [phone]. Pit Furnace Operator stated the patient see's Dr. Alli toribio doesn't normally clear patient's to be off of medications before procedure's he leaves that up to provider performing procedure and patient. Will inform Dewayne Hutton [facility]02-18-2025 Miscellaneous Notes* Telephone Encounter - Li Rosenbaum LPN - 08/16/2024 9:[address] Rodriges's office at [phone]. Pit Furnace Operator stated the patient see's Dr. Alli toribio doesn't normally clear patient's to be off of medications before procedure's he leaves that up to provider performing procedure and patient. Will inform Dewayne Hutton * Telephone Encounter - Li Rosenbaum LPN - 08/15/2024 4:45 PM EST Will call Dr. Rodriges at [facility] to get a fax number to send a clearance letter. * Telephone Encounter - Li Rosenbaum LPN - 08/15/2024 4:34 PM EST Phoned patient and spoke with patient to confirm appointment for Mary Jimenez for spine procedure on 08/25/24. Patient notified that [place] will call patient the night before with the time to arrive for injection. Patient verbalized understanding of the following: -Provided education on spine procedure and answered questions related to spine injection procedure. -Delinquent Tax Collection Assistant is needed to drive patient home: Yes, [...] Dr. Rodriges is the prescribing provider at [facility]: [phone]. Taking aspirin 81mg: No Any open wounds/sores?: No Taking Antibiotics?: No Patient given number [phone], spine injections schedulers, if there is any [...] one week before; requesting call back; ph. [phone] * Telephone Encounter - Li Rosenbaum LPN [...] to review with patient. documented in this encounterBarnesville Hospital02-17-2025 Telephone encounter Note * Telephone Encounter - Li Rosenbaum LPN - 08/15/2024 4:45 PM EST Will call Dr. Rodriges at [facility] to get a fax number to send a clearance letter. [facility]02-17-2025 Telephone encounter Note* Telephone Encounter - iL Rosenbaum LPN - 08/15/2024 4:34 PM EST Phoned patient and spoke with patient to confirm appointment for Mary Jimenez for spine procedure on 08/25/24. Patient notified that [place] will call patient the night before with the time to arrive for injection. Patient verbalized understanding of the following: -Provided education on spine procedure and answered questions related to spine injection procedure. -Delinquent Tax Collection Assistant is needed to drive patient home: Yes, [...] Dr. Rodriges is the prescribing provider at [facility]: [phone]. Taking aspirin 81mg: No Any open wounds/sores?: No Taking Antibiotics?: No Patient given number [phone], spine injections schedulers, if there is any [...] UNDERSTANDING OF PRE AND POST INJECTION INSTRUCTIONS [facility]02-17-2025 Telephone encounter Note* Telephone Encounter - Macrina Grayson - 08/15/2024 4:26 PM EST Patient called; returning call from nurse; asked patient if he is still taking plavix and patient answered yes - states he usually stops this rx one week before; requesting call back; ph. [phone] [facility]02-17-2025 Telephone encounter Note* Telephone Encounter - Li Rosenbaum LPN - 08/15/2024 3:54 PM EST 3rd attempt to call patient to review procedure instructions and discuss his medications. LVM to give office a call back. [facility]02-14-2025 Telephone encounter Note* Telephone Encounter - Li Rosenbaum LPN - 08/12/2024 9:01 AM EST 2nd attempt to call patient. Lvm for patient to give office a call back regarding his spine procedure on 08/25/24 and discuss medication. [facility]02-12-2025 Telephone encounter Note* Telephone Encounter - Li Rosenbaum LPN - 08/10/2024 6:01 PM EST Called and left patient a message for patient to give office a call back regarding his spine procedure on 08/25/24 Patient med list shows patient is taking Plavix 75mg. Need to review with patient. [facility]02-11-2025 NoteHNO ID: [id number] Author: ROSY RIVAS RT(R) Service: ? Author Type: Technologist Type: Progress [...] PATIENT PRESENTS WITH AN IMPLANTABLE OR ATTACHED HOT DIE PRESS OPERATOR: No RADIOLOGY DEPARTMENT: CT; Exam(s) Completed: Spine PERIPHERAL IV DATA: Not applicable SIGNED BY: RT Moon(Megan) August 09, 2024 11:[address] [facility]02-11-2025 History of Present illness Narrative* Rosy [...] PATIENT PRESENTS WITH AN IMPLANTABLE OR ATTACHED HOT DIE PRESS OPERATOR: No RADIOLOGY DEPARTMENT: CT; Exam(s) Completed: Spine PERIPHERAL IV DATA: Not applicable SIGNED BY: RT Moon(Megan) August 09, 2024 11:44 AM documented in this encounterBarnesville Hospital02-05-2025 History of Present illness Narrative* Mickey Sánchez [...] sterilized with 70% isopropanol alcohol. Lot #: [id number] Exp: 08/2026 Dilution: 2:1 Procedure Procerus 5 units Half Backer, L 5 units Half Backer, R 5 units Frontalis, L 5+5 units [...] status migrainosus - G43.719 documented in this encounterWright Memorial HospitalOrzodktbej40-87-9099 Evaluation note* Author Rafael Holbrook [facility] HospitalAuthoredJanuary 2024 2:54pmHighest weight: 311.0 lbs. He is down 40.0lbs. today. Start weight: 304.1 [...] whole foods and work closely with the pad hand. He had a negative recent colonoscopy. He should continue to take time to meal prep. He is still doing very good with regular exercise 1 hour a day at [facility] doing both strength and cardio. He should continue to treat with long-term lifestyle changes of improved nutrition, increased exercise and activity, stress reduction, adequate sleep and behavioral modification versus short-term dieting. We cannot consider phentermine with his history of possible CAD. He has considered the bariatric surgery program at the [facility]. 3. Prediabetes he had an A1c up to 6.2 but recent A1c better now normal at 5.4/he has had multiple blood sugars that have been in the diabetic range but may not been fasting. He notes at the [facility] he told he was diabetic. Continue [...] healthy exercise is now working out at [facility] every other day and weight loss. He [...] his PCP Dr. Valdovinos, cardiology or GI. [facility] Work Phone: 1(406) 316-572501-30-2025 Evaluation note* Author Rafael Holbrook [facility] HospitalAuthoredJanuary 2024 1:54pmHighest weight: 311.0 lbs. He is down 40.0lbs. today. Start weight: 304.1 [...] whole foods and work closely with the pad hand. He had a negative recent colonoscopy. He should continue to take time to meal prep. He is still doing very good with regular exercise 1 hour a day at [facility] doing both strength and cardio. He should continue to treat with long-term lifestyle changes of improved nutrition, increased exercise and activity, stress reduction, adequate sleep and behavioral modification versus short-term dieting. We cannot consider phentermine with his history of possible CAD. He has considered the bariatric surgery program at the [facility]. 3. Prediabetes he had an A1c up to 6.2 but recent A1c better now normal at 5.4/he has had multiple blood sugars that have been in the diabetic range but may not been fasting. He notes at the [facility] he told he was diabetic. Continue [...] healthy exercise is now working out at [facility] every other day and weight loss. He [...] his PCP Dr. Valdovinos, cardiology or GI. [facility] Work Phone: 1(652) 922-573101-30-2025 Evaluation note* Author Kayleigh López [facility] HospitalAuthoredApril 2024 3:03pmHighest weight: 311.0 lbs. He is down 32.8 lbs. today. Start weight: [...] whole foods and work closely with the pad hand. He had a negative recent colonoscopy. He should continue to take time to meal prep. He is still doing very good with regular exercise 1 hour a day at [employer] doing both strength and cardio. He should continue to treat with long-term lifestyle changes of improved nutrition, increased exercise and activity, stress reduction, adequate sleep and behavioral modification versus short-term dieting. We cannot consider phentermine with his history of possible CAD. He has considered the bariatric surgery program at the [facility]. 3. Prediabetes he had an A1c up to 6.2 but recent A1c better now normal at 5.4/he has had multiple blood sugars that have been in the diabetic range but may not been fasting. He notes at the [facility] he told he was diabetic. Continue [...] healthy exercise is now working out at [facility] every other day and weight loss. He [...] Valdovinos, cardiology or GI. Author Rafael Holbrook [facility] HospitalAuthoredJanuary 2024 2:54pmHighest weight: 311.0 lbs. He is down 40.0lbs. today. Start weight: 304.1 [...] whole foods and work closely with the pad hand. He had a negative recent colonoscopy. He should continue to take time to meal prep. He is still doing very good with regular exercise 1 hour a day at [facility] doing both strength and cardio. He should continue to treat with long-term lifestyle changes of improved nutrition, increased exercise and activity, stress reduction, adequate sleep and behavioral modification versus short-term dieting. We cannot consider phentermine with his history of possible CAD. He has considered the bariatric surgery program at the [facility]. 3. Prediabetes he had an A1c up to 6.2 but recent A1c better now normal at 5.4/he has had multiple blood sugars that have been in the diabetic range but may not been fasting. He notes at the [facility] he told he was diabetic. Continue [...] healthy exercise is now working out at [facility] every other day and weight loss. He [...] his PCP Dr. Valdovinos, cardiology or GI. [facility] Work Phone: 1(195) 931-621401-29-2025 Telephone encounter Note* Telephone Encounter - Li Rosenbaum LPN - 07/27/2024 11:46 AM EST [employer] message sent to patient with procedure instructions. [facility]01-29-2025 Miscellaneous Notes* Telephone Encounter - Li Rosenbaum LPN - 07/27/2024 11:46 AM EST [employer] message sent to patient with procedure instructions. documented in this encounterBarnesville Hospital01-24-2025 History of Present illness Narrative* Danisha Bran [...] Every 90 days, Disp: , Rfl: pancrelipase, Ncd-Quxv-Yvxf, (Creon) 36,000-114,000- 180,000 unit capsule,delayed release(DR/EC) capsule, [...] mouth if needed., Disp: , Rfl: HYDROcodone-acetaminophen (Valatie) 7.5-325 mg tablet, Take 1 tablet by [...] exam, discussion and plan. documented in this encounterHolmes County [facility] Work Phone: 1(515) 729-381801-24-2025 Instructions* Patient Instructions* Hetal Young RN - [...] Provided instructions on exercise. documented in this encounterHolmes County [facility] Work Phone: 1(397) 801-246501-22-2025 History of Present illness Narrative* Loyda Steele [...] other than back pain 10/02/2021 Neck Questionnaires Toiel Modified SCARLETT Score Incomplete PROMIS Score Percentiles [...] TIME: 1:04 PM PAGER: documented in this encounterBarnesville Hospital01-22-2025 NoteHNO ID: [id number] Author: LOYDA STEELE MD Service: ? Author [...] Not at all Not (more content not included)...[facility] 07-13-2024 History of Present illness Narrative* [...] 09/06/2013 Headache, chronic migraine without aura, intractable ([facility]) 10/15/2018 Headache, migraine ([facility]) 07/16/2018 Hx of being [place] 05[place]03[place]20[place] [facility] [place] Insomnia 04/21/2017 Insomnia, unspecified type 11/06/2014 Intractable migraine, unspecified migraine type ([facility]/HCC) 07/16/2018 Low testosterone Migraine ([facility]/HCC) 02/10/2018 Muscle spasm 11/07/2014 Myalgia 07/01/2017 Neck pain 04/21/2017 Obesity with body mass index (BMI) of 30.0 to 39.9 Obstructive sleep apnea 05/19/2018 Radiculopathy, lumbosacral region 10/25/2013 Secondary male hypogonadism Stroke ([facility]) 05/19/2018 Sweating abnormality Syndrome affecting cervical region [...] patient wishes to proceed. documented in this encounterWright Memorial HospitalSouxrskkfm42-60-0189 Telephone encounter Note* Telephone Encounter - Christine Guteirrez PA-C - 07/11/2024 9:58 AM EST Imaging viewable, should be okay for appointment. [facility]01-13-2025 Miscellaneous Notes* Telephone Encounter - Christine Gutierrez [...] good togo for his appointment. Patient # [id number] documented in this encounterBarnesville Hospital01-13-2025 Telephone encounter Note * Telephone Encounter - Naren Bear - 07/11/2024 9:36 AM EST Patient called, he wanted to make sure all his images were in the system, I was able to see MRI completed on 06/15/24. Report and images are in system. Patient just wanted to make sure he was good togo for his appointment. Patient # [id number] [facility]12-30-2024 Telephone encounter Note* Telephone Encounter - Yolanda Conde - 06/27/2024 3:21 PM EST MRI report scanned to [facility]12-30-2024 Miscellaneous Notes* Telephone Encounter - Yolanda Conde - 06/27/2024 3:21 PM EST MRI report scanned to [facility] documented in this encounterBarnesville Hospital12-16-2024 Telephone encounter Note * Telephone Encounter - Bette Chung MA - 06/13/2024 11:59 AM EST Patient calls requesting refill of pregabalin 200mg sent to [facility] in [place] [facility] HospitalKvbkvlqqxw50-60-7691 Miscellaneous Notes* Telephone Encounter - Bette Chung MA - 06/13/2024 11:59 AM EST Patient calls requesting refill of pregabalin 200mg sent to [facility] in [place] documented in this encounterWright Memorial HospitalCgtvlccbin98-32-3048 Telephone encounter Note* Telephone Encounter - Evelia Whiteside MA - 06/06/2024 12:34 PM EST Ilana Izaguirre [facility] HospitalXbbttjksgc39-79-7983 Miscellaneous Notes* Telephone Encounter - Evelia Whiteside [...] take prior for claustrophobia. documented in this encounterWright Memorial HospitalElrforpppj78-76-1535 Telephone encounter Note* Telephone Encounter - RAIMUNDO Atkins - 06/06/2024 12:27 PM EST Where would he like this sent? I see a few local pharmacies listed, thanks! Wright Memorial HospitalWqhfjwkykg26-57-0655 Telephone encounter Note* Telephone Encounter - Shireen Ardon MA - 06/06/2024 11:16 AM EST Patient states that he has MRI scheduled for next week. Asking if we can send in a medication for him to take prior for claustrophobia. [facility] [id number] History of Present illness Narrative* Se Rodriges [...] (CMS/HCC) 07/16/2018 [place] of [place] [facility] [place] Insomnia 04/21/2017 Insomnia, unspecified type 11/06/2014 Intractable migraine, unspecified migraine type (CMS/HCC) 07/16/2018 Migraine (CMS/HCC) 02/10/2018 Muscle spasm 11/07/2014 Myalgia 07/01/2017 Neck pain 04/21/2017 Obstructive sleep apnea 05/19/2018 Radiculopathy, lumbosacral region 10/25/2013 Stroke ([facility]) 05/19/2018 Syndrome affecting cervical region 02/28/2014 Tension [...] triceps, wrist extensors, wrist extensors, wrist flexor, photo specialist strength 5/5. LUE Strength deltoid, biceps, triceps, wrist extensors, wrist extensors, wrist flexor, photo specialist strength 5/5. RLE Strength illopsoas, quadriceps, tibialis [...] had Lyrica increased by his surgeon at [facility] and we have since taken over [...] of the cervical spine. documented in this encounterWright Memorial [id number] Evaluation note* Author Rafael Holbrook [facility] HospitalAuthoredNovvalleywise [facility] [place] 2023 11:17amHighest weight: 311.0 lbs. He is down 48.3 lbs. today. Start weight: [...] start the bariatric surgery program at the [facility] as he feels doing well with our program and Ozempic. He should minimize or stop wine intake. He should continue to eat healthy whole foods and work closely with the pad hand. He had a negative recent colonoscopy. He should continue to take time to meal prep. He is still doing very good with regular exercise 1 hour a day at [facility] doing both strength and cardio. He should continue to treat with long-term lifestyle changes of improved nutrition, increased exercise and activity, stress reduction, adequate sleep and behavioral modification versus short-term dieting. We cannot consider phentermine with his history of possible CAD. He has considered the bariatric surgery program at the [facility]. 3. Prediabetes he had an A1c up to 6.2 but recent A1c better now normal at 5.4/he has had multiple blood sugars that have been in the diabetic range but may not been fasting. He notes at the [facility] he told he was diabetic. Continue [...] healthy exercise is now working out at [facility] every other day and weight loss. 7. [...] or GI. FibroScan ordered. Author Kayleigh López [facility] HospitalAuthoredJanuary 2024 1:32pmHighest weight: 311.0 lbs. He is down 40.0lbs. today. Start weight: 304.1 [...] start the bariatric surgery program at the [facility] as he feels doing well with our program and Ozempic. He should minimize or stop wine intake. He should continue to eat healthy whole foods and work closely with the pad hand. He had a negative recent colonoscopy. He should continue to take time to meal prep. He is still doing very good with regular exercise 1 hour a day at [facility] doing both strength and cardio. He should continue to treat with long-term lifestyle changes of improved nutrition, increased exercise and activity, stress reduction, adequate sleep and behavioral modification versus short-term dieting. We cannot consider phentermine with his history of possible CAD. He has considered the bariatric surgery program at the [facility]. 3. Prediabetes he had an A1c up to 6.2 but recent A1c better now normal at 5.4/he has had multiple blood sugars that have been in the diabetic range but may not been fasting. He notes at the [facility] he told he was diabetic. Continue [...] healthy exercise is now working out at [facility] every other day and weight loss. 7. [...] Dr. Valdovinos, cardiology or GI. FibroScan ordered. [facility] Work Phone: 1(288) 861-369411-20-2024 Evaluation note* Author Rafael Holbrook [facility] HospitalAuthoredNovvalleywise [facility] [place] 2023 11:17amHighest weight: 311.0 lbs. He is down 48.3 lbs. today. Start weight: [...] start the bariatric surgery program at the [facility] as he feels doing well with our program and Ozempic. He should minimize or stop wine intake. He should continue to eat healthy whole foods and work closely with the pad hand. He had a negative recent colonoscopy. He should continue to take time to meal prep. He is still doing very good with regular exercise 1 hour a day at [facility] doing both strength and cardio. He should continue to treat with long-term lifestyle changes of improved nutrition, increased exercise and activity, stress reduction, adequate sleep and behavioral modification versus short-term dieting. We cannot consider phentermine with his history of possible CAD. He has considered the bariatric surgery program at the [facility]. 3. Prediabetes he had an A1c up to 6.2 but recent A1c better now normal at 5.4/he has had multiple blood sugars that have been in the diabetic range but may not been fasting. He notes at the [facility] he told he was diabetic. Continue [...] healthy exercise is now working out at [facility] every other day and weight loss. 7. [...] or GI. FibroScan ordered. Author Rafael Holbrook [facility] HospitalAuthoredJanuary 2024 1:54pmHighest weight: 311.0 lbs. He is down 40.0lbs. today. Start weight: 304.1 [...] whole foods and work closely with the pad hand. He had a negative recent colonoscopy. He should continue to take time to meal prep. He is still doing very good with regular exercise 1 hour a day at [facility] doing both strength and cardio. He should continue to treat with long-term lifestyle changes of improved nutrition, increased exercise and activity, stress reduction, adequate sleep and behavioral modification versus short-term dieting. We cannot consider phentermine with his history of possible CAD. He has considered the bariatric surgery program at the [facility]. 3. Prediabetes he had an A1c up to 6.2 but recent A1c better now normal at 5.4/he has had multiple blood sugars that have been in the diabetic range but may not been fasting. He notes at the [facility] he told he was diabetic. Continue [...] healthy exercise is now working out at [facility] every other day and weight loss. He [...] his PCP Dr. Valdovinos, cardiology or GI. [facility] Work Phone: 1(746) 290-885611-08-2024 Telephone encounter Note* Telephone Encounter - Yolanda Conde - 05/06/2024 1:39 PM EST Pato Manuel MRI Spine lumbar report scanned to [facility]11-08-2024 Miscellaneous Notes* Telephone Encounter - Yolanda Conde - 05/06/2024 1:39 PM EST Pato Beeus MRI Spine lumbar report scanned to [facility] documented in this encounterBarnesville Hospital11-07-2024 Telephone encounter Note * Telephone Encounter - Naren Bear - 05/05/2024 12:21 PM EST Patient call to ask for office fax number to send MRI report. [facility]11-07-2024 Miscellaneous Notes* Telephone Encounter - Naren Bear - 05/05/2024 12:21 PM EST Patient call to ask for office fax number to send MRI report. documented in this encounterBarnesville Hospital10-14-2024 Telephone encounter Note * Telephone Encounter - Becca Herbert LPN - 04/11/2024 2:07 PM EDT MEDICATION SENT TO PHARMACY. [facility] [id number] Miscellaneous Notes* Telephone Encounter - Becca Herbert LPN - 04/11/2024 2:07 PM EDT MEDICATION SENT TO PHARMACY. * Telephone Encounter - Mickey Avilez - 04/11/2024 1:13 PM EDT Please send testosterone and syringes to [facility] gore please and thank you! documented in this encounterWright Memorial [id number] Telephone encounter Note* Telephone Encounter - Mickey Avilez - 04/11/2024 1:13 PM EDT Please send testosterone and syringes to [facility] gore please and thank you! [facility] [id number] Telephone encounter Note* Telephone Encounter - Mickey Avilez - 04/01/2024 9:39 AM EDT Refill [facility] to [facility] please and thank you! [facility] HospitalFhsbdwagea08-06-6450 Miscellaneous Notes* Telephone Encounter - Mickey Avilez - 04/01/2024 9:39 AM EDT Refill [facility] to [facility] please and thank you! documented in this encounterWright Memorial [id number] History of Present illness Narrative* Shireen Ardon MA - 02/18/2024 11:30 AM EDT Images from the original note were not included. Reason for Appointment: EMG Patient: Mary Jimenez : 1960 EMG Computer: [employer] Referring Physician: Ewa Rodriguez PA-C EMG: AARON deicer kit assembler: Shireen Ardon CMA Office Location: [place] Reason for EMG: c/o decreased photo specialist. Numbness in the hands and arms. L>R. Hx of shoulder replacements. No Hx of DM, takes Plavix Comments: Procedure explained to the patient who expressed understanding. documented in this encounterWright Memorial [id number] History of Present illness Narrative* RAIMUNDO Garcia [...] (CMS/HCC) 07/16/2018 [place]x of being [place] [facility] [place] Insomnia 04/21/2017 Insomnia, unspecified [...] trigger today -pain prior to injection is 10 -pain post injection 09/05 -headaches have become more frequent -he thinks [...] triceps, wrist extensors, wrist extensors, wrist flexor, photo specialist strength 5/5. LUE Strength deltoid, biceps, triceps, wrist extensors, wrist extensors, wrist flexor, photo specialist strength 5/5. RLE Strength illopsoas, quadriceps, tibialis [...] had Lyrica increased by his surgeon at [facility] and we have since taken over [...] tolerated the procedure well. documented in this encounterWright Memorial [id number] Evaluation note* Author Rafael Holbrook [facility] 2023 2:04pmPlan Detail Assessment: Highest weight: 311.0 lbs. He [...] start the bariatric surgery program at the [facility] as he feels doing well with our program and Ozempic. He should minimize or stop wine intake. He should continue to eat healthy whole foods and work closely with the pad hand. He had a negative recent colonoscopy. He should continue to take time to meal prep. He is still doing very good with regular exercise 1 hour a day at [facility] doing both strength and cardio. He should continue to treat with long-term lifestyle changes of improved nutrition, increased exercise and activity, stress reduction, adequate sleep and behavioral modification versus short-term dieting. We cannot consider phentermine with his history of possible CAD. He has considered the bariatric surgery program at the [facility]. 3. Prediabetes he had an A1c up to 6.2 but recent A1c better/normal at 5.5/he has had some blood sugars that have been in the diabetic range but may not been fasting. Despite significant weight loss and our program his recent fasting blood sugar was still 112.He notes at the [facility] he told he was diabetic. Continue [...] healthy exercise is now working out at [facility] every other day and weight loss. 7. [...] his PCP Dr. Valdovinos, cardiology or GI. [facility] Work Phone: 1([phone]) 204-879606-13-2024 Evaluation note* Author Kayleigh López [facility] HospitalAuthoredNovvalleywise [facility] [place] 2023 10:51amHighest weight: 311.0 lbs. He is down 48.3 lbs. today. Start weight: [...] start the bariatric surgery program at the [facility] as he feels doing well with our program and Ozempic. He should minimize or stop wine intake. He should continue to eat healthy whole foods and work closely with the pad hand. He had a negative recent colonoscopy. He should continue to take time to meal prep. He is still doing very good with regular exercise 1 hour a day at [facility] doing both strength and cardio. He should continue to treat with long-term lifestyle changes of improved nutrition, increased exercise and activity, stress reduction, adequate sleep and behavioral modification versus short-term dieting. We cannot consider phentermine with his history of possible CAD. He has considered the bariatric surgery program at the [facility]. 3. Prediabetes he had an A1c up to 6.2 but recent A1c better/normal at 5.5/he has had some blood sugars that have been in the diabetic range but may not been fasting. Despite significant weight loss and our program his recent fasting blood sugar was still 112.He notes at the [facility] he told he was diabetic. Continue [...] healthy exercise is now working out at [facility] every other day and weight loss. 7. [...] his PCP Dr. Valdovinos, cardiology or GI. [facility] Work Phone: 1([phone]) 763-686004-09-2024 Miscellaneous Notes* Telephone Encounter - Laura Truong RN - 10/06/2023 12:41 PM EDT BMI SPECIALTY CARE COORDINATION TELEPHONE ENCOUNTER Referral received from Dr. Holbrook of [facility] for patient to meet with Dr. [...] no call back received. documented in this encounterBarnesville Hospital04-04-2024 Evaluation note* Author Rafael Montalvodiff [facility] HospitalAuthoredApril 2023 3:00pmHighest weight: 311.0 lbs. He is down 32.0 lbs. today. Start weight: [...] start the bariatric surgery program at the [facility]. He should continue to eat healthy whole foods and work closely with the pad hand. He had a negative recent colonoscopy. He should continue to take time to meal prep. He is still doing very good with regular exercise 1 hour a day at [employer] doing both strength and cardio. He should continue to treat with long-term lifestyle changes of improved nutrition, increased exercise and activity, stress reduction, adequate sleep and behavioral modification versus short-term dieting. We cannot consider phentermine with his history of possible CAD. He has considered the bariatric surgery program at the [facility]. 3. Prediabetes he had an A1c up to 6.2 but recent A1c better/normal at 5.4/he has had some blood sugars that have been in the diabetic range but may not been fasting. He notes at the [facility] he told he was diabetic. Continue [...] healthy exercise is now working out at [facility] every other day and weight loss. 7. [...] cardiology or GI. Referral to bariatric surgery [facility] due to his multiple health related obesity issues. [facility] Work Phone: 1([phone]) 931-424304-04-2024 Evaluation note* Author Rafael Holbrook [facility] HospitalAuthoredApril 2023 3:00pmHighest weight: 311.0 lbs. He is down 32.0 lbs. today. Start weight: [...] start the bariatric surgery program at the [facility]. He should continue to eat healthy whole foods and work closely with the pad hand. He had a negative recent colonoscopy. He should continue to take time to meal prep. He is still doing very good with regular exercise 1 hour a day at [facility] doing both strength and cardio. He should continue to treat with long-term lifestyle changes of improved nutrition, increased exercise and activity, stress reduction, adequate sleep and behavioral modification versus short-term dieting. We cannot consider phentermine with his history of possible CAD. He has considered the bariatric surgery program at the [facility]. 3. Prediabetes he had an A1c up to 6.2 but recent A1c better/normal at 5.4/he has had some blood sugars that have been in the diabetic range but may not been fasting. He notes at the [facility] he told he was diabetic. Continue [...] healthy exercise is now working out at [facility] every other day and weight loss. 7. [...] cardiology or GI. Referral to bariatric surgery [facility] due to his multiple health related obesity issues. Author La Andreysesaryassine Berger HospitalMaggie 2023 1:45pmPlan Detail Assessment: Highest weight: 311.0 lbs. He [...] start the bariatric surgery program at the [facility]. He should continue to eat healthy whole foods and work closely with the pad hand. He had a negative recent colonoscopy. He should continue to take time to meal prep. He is still doing very good with regular exercise 1 hour a day at [facility] doing both strength and cardio. He should continue to treat with long-term lifestyle changes of improved nutrition, increased exercise and activity, stress reduction, adequate sleep and behavioral modification versus short-term dieting. We cannot consider phentermine with his history of possible CAD. He has considered the bariatric surgery program at the [facility]. 3. Prediabetes he had an A1c up to 6.2 but recent A1c better/normal at 5.4/he has had some blood sugars that have been in the diabetic range but may not been fasting. He notes at the [facility] he told he was diabetic. Continue [...] healthy exercise is now working out at [facility] every other day and weight loss. 7. [...] cardiology or GI. Referral to bariatric surgery [facility] due to his multiple health related obesity issues. [facility] Work Phone: 1([phone]) 872-273703-01-2024 History of Present illness Narrative* Danisha Bran [...] Every 90 days, Disp: , Rfl: pancrelipase, Skv-Cwwr-Xxys, (Creon) 36,000-114,000- 180,000 unit capsule,delayed release(DR/EC) capsule, [...] Scribe Attestation By signing my name below, Iduglas , Scribe attest that this documentation has [...] exam, discussion and plan. documented in this encounterHolmes County [facility] Work Phone: 1(694) 319-821703-01-2024 Instructions* Patient Instructions* Mary Webster LPN - [...] Provided instructions on exercise. documented in this encounterHolmes County [facility] Work Phone: 1(114) 526-457102-21-2024 Procedure noteBerger Hospital02-01-2024 Evaluation note* Encounter Date Diagnosis Assessment Notes Treatment Notes Treatment Clinical Notes Jul, Acute recurrent sinusitis, unspe cified location (ICD-10 - J01.91) Discussed he did the right thing initially treating this is viral. 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 Strongly stressed that he needs to completely stop. We will prescribe Medrol Dosepak. He can double up on the Flonase for a week or 2 if needed and also use lots of saline nasal spray as needed., Pharyngitis/tonsillopharyngitis: adult home care material was published Jul,dverse effect of other ispp-zimdya-tkio drugs, initial encounter (ICD-10 - T48.5X5A)See dictation above Jul,OtherRTO as needed [employer] Other 01-24-2024 Evaluation note* Encounter Date Diagnosis Assessment Notes Treatment Notes Treatment Clinical Notes Jun, Obesity, unspecified classification, unspecified obesity type, unspecified whether serious comorbidity present (ICD-10 - E66.9) Jun,OtherSummary of Visit: (A) Group discussion w/ topic of Healthy Eating on a Budget (B) Discussed tips for before, during and after grocery shopping to save money (C) discussed specific budget friendly foods and recipes, repurposing leftovers (D) Group offered moral support to one another Patient set the following goals: - not reviewed today [employer] Other 01-18-2024 Evaluation note* Encounter Date Diagnosis Assessment Notes Treatment Notes Treatment Clinical Notes Jun, Diarrhea (ICD-10 - R19.7) Patient reports that he has had diarrhea for the past few months that he is now taking OTC Imodium for with improvement, but does get constipated Patient is currently taking Ozempic Patient is advised to have a colonoscopy to rule out colitis Jun,Fatty liver (ICD-10 - K76.0)Patient is advised to get a fibro scan and liver ultrasound Jun,OtherPatient is intrested in having the ordera system done, and will schedule a consult appointment withDr. 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 He is down 32.0 lbs. today. Start weight: [...] regular exercise 1 hour a day at [facility] doing both strength and cardio. He should continue to treat with long-term lifestyle changes of improved nutrition, increased exercise and activity, stress reduction, adequate sleep and behavioral modification versus short-term dieting. We cannot consider phentermine with his history of possible CAD. He has considered the bariatric surgery program at the [facility]. 3. Prediabetes he had an A1c up to 6.2 but recent A1c better/normal at 5.4/he has had some blood sugars that have been in the diabetic range but may not been fasting. He notes at the [facility] he told he was diabetic. Continue [...] healthy exercise is now working out at [facility] every other day and weight loss. 7. [...] evaluate diarrhea and overdue for screening scheduled. [facility] Work Phone: 1(644) 472-183401-09-2024 Evaluation note* Encounter Date Diagnosis Assessment Notes Treatment Notes Treatment Clinical Notes Jun, Obesity, unspecified classification, unspecified obesity type, unspecified whether serious comorbidity present (ICD-10 - E66.9) Jun,MI 40.0-44.9, adult (ICD-10 - Z68.41) Jun,OtherSummary of Visit: (A) Overview of what the gut consists of (stomach, intestines) (B) Gut microbiome (C) How nutrition, exercise, sleep, and stress impact gut health (D) Probiotics and Prebiotics [employer] Other 12-21-2023 Evaluation note* Encounter Date Diagnosis Assessment Notes Treatment Notes Treatment Clinical Notes May, Obesity, unspecified classification, unspecified obesity type, unspecified whether serious comorbidity present (ICD-10 - E66.9) May,MI 40.0-44.9, adult (ICD-10 - Z68.41) May,OtherSummary of Visit: (A) Reviewed the plate method (B) Discussed reducing daily Imodium (C) Emphasized finding consistency in balanced, healthy eating [employer] Other 11-02-2023 Evaluation note* Encounter Date Diagnosis Assessment Notes Treatment Notes Treatment Clinical Notes Apr, Obesity, unspecified classification, unspecified obesity type, unspecified whether serious comorbidity present (ICD-10 - E66.9) Apr,MI 40.0-44.9, adult (ICD-10 - Z68.41) Apr,OtherSummary of Visit: (A) Reviewed the plate method and discussed how various meals fit into it (B) Discussed finding control over food and grocery store decision-making (C) Emphasized finding alternative measures of success outside of scale weight [employer] Other 10-19-2023 Evaluation note* Encounter Date Diagnosis Assessment Notes Treatment Notes Treatment Clinical Notes Mar, Prediabetes (ICD-10 - R73.09) Mar,ody mass index (BMI) of 45.0-49.9 in adult (ICD-10 - Z68.42) Mar,Mixed hyperlipidemia (ICD-10 - E78.2) Mar,Essential (primary) hypertension (ICD-10 - I10) Mar,Obstructive sleep apnea (ICD-10 - G47.33) Mar,iarrhea (ICD-10 - R19.7) Mar,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) Mar,nee osteoarthritis (ICD-10 - M17.9) Mar,Metabolic syndrome X (ICD-10 - E88.81) Mar,olon polyps (ICD-10 - K63.5) [employer] Other 10-10-2023 Evaluation note* Encounter Date Diagnosis [...] steroids., Sinusitis (sinus infection) material was published Mar,hronic allergic rhinitis (ICD-10 - J30.9)See dictation above Mar,OtherRTO as scheduled and sooner as needed [employer] Other 09-05-2023 Evaluation note* Encounter Date Diagnosis Assessment Notes Treatment Notes Treatment Clinical Notes Feb, Nausea (ICD-10 - R11.0) [employer] Other 08-17-2023 Evaluation note* Encounter Date Diagnosis Assessment Notes Treatment Notes Treatment Clinical Notes Jan, Prediabetes (ICD-10 - R73.09) Jan,ody mass index (BMI) of 45.0-49.9 in adult (ICD-10 - Z68.42) Jan,Mixed hyperlipidemia (ICD-10 - E78.2) Jan,Essential (primary) hypertension (ICD-10 - I10) Jan,Obstructive sleep apnea (ICD-10 - G47.33) Jan,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) Jan,nee osteoarthritis (ICD-10 - M17.9) Jan,Metabolic syndrome X (ICD-10 - E88.81) [employer] Other 08-08-2023 Evaluation note* Encounter Date Diagnosis Assessment Notes Treatment Notes Treatment Clinical Notes Jan, Chronic rhinitis (ICD-10 - J31.0 ) [employer] Other 07-13-2023 Evaluation note* Encounter Date Diagnosis Assessment Notes Treatment Notes Treatment Clinical Notes Dec, Obesity, unspecified classification, unspecified obesity type, unspecified whether serious comorbidity present (ICD-10 - E66.9) Dec,MI 40.0-44.9, adult (ICD-10 - Z68.41) Dec,OtherSummary of Visit: (A) Reviewed plate method (B) Discussed options for reducing alcohol intake (C) Discussed options available at the store that better support goals [employer] Other 06-22-2023 Evaluation note* Encounter Date Diagnosis [...] enough that I do not think there isvalue in doing a COVID test., Sinusitis (sinus infection) material was published Nov,hronic allergic rhinitis (ICD-10 - J30.9)See dictation above, Reducing environmental allergens material was published Nov,OtherRTO as needed [employer] Other 06-20-2023 Evaluation note* Encounter Date Diagnosis Assessment Notes Treatment Notes Treatment Clinical Notes Nov, Prediabetes (ICD-10 - R73.09) Nov,ody mass index (BMI) of 45.0-49.9 in adult (ICD-10 - Z68.42) Nov,Mixed hyperlipidemia (ICD-10 - E78.2) Nov,Essential (primary) hypertension (ICD-10 - I10) Nov,Obstructive sleep apnea (ICD-10 - G47.33) Nov,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 I have reduced his use of Valatie 5 mg pills t.i.d. to b.i.d., 80 [...] our patients to inform us about any xuap-hay-gpppqge medications or herbal remedies/nutritional supplements/alternative remedies. 2. [...] treatment options with their primary care provider.[facility] [id number] Note CONSULTATION PROCEDURE DATE: 11/04/2022 PROCEDURE: Right [...] of pain symptoms by at least 70%.[facility] [id number] Evaluation note* Encounter Date Diagnosis Assessment Notes Treatment Notes Treatment Clinical Notes October, Prediabetes (ICD-10 - R73.09) October,ody mass index (BMI) of 45.0-49.9 in adult (ICD-10 - Z68.42) October,Mixed hyperlipidemia (ICD-10 - E78.2) October,Essential (primary) hypertension (ICD-10 - I10) October,Obstructive sleep apnea (ICD-10 - G47.33) October,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) October,nee osteoarthritis (ICD-10 - M17.9) October,Metabolic syndrome X (ICD-10 - E88.81) [employer] Other 04-25-2023 Evaluation note* Encounter Date Diagnosis Assessment Notes Treatment Notes Treatment Clinical Notes Sep, Obesity, unspecified classification, unspecified obesity type, unspecified whether serious comorbidity present (ICD-10 - E66.9) Sep,MI 40.0-44.9, adult (ICD-10 - Z68.41) Sep,OtherSummary of Visit: (A) Presentation of Plate Method discussed (B) Sample meal ideas reviewed (C) exercise recommendations reviewed Patient set the following goals: - patient set personal goal using given handout. [employer] Other 04-24-2023 Evaluation note* Encounter Date Diagnosis Assessment Notes Treatment Notes Treatment Clinical Notes Sep, Medial epicondylitis of left elb ow (ICD-10 - M77.02) Sep,Ulnar neuropathy of left upper extremity (ICD-10 - G56.22) [employer] Other 04-19-2023 Evaluation note* Encounter Date Diagnosis Assessment Notes Treatment Notes Treatment Clinical Notes Sep, Medial epicondylitis of left elb ow (ICD-10 - M77.02) Mary presents with medial epicondylitis. At this juncture we have discussed the findings and diagnosis as well as personally reviewed appropriate imaging and performed interpretation of related testing and examination with the patient in office today. Today we have discussed either proceeding withan MRI or an EMG. He has some prior nerve issues so we will move forward with an EMG at this time. I will plan to see him after her EMG is completed for further recommendations The patient has been involved in our cooperative treatment plan and agrees to move forward with treatment at this time. Sep,Ulnar neuropathy of left upper extremity (ICD-10 - G56.22) We will order EMG for further evaluation and treatment options. [employer] Other 04-13-2023 Evaluation note* Encounter Date Diagnosis Assessment Notes Treatment Notes Treatment Clinical Notes Sep, Left elbow pain (ICD-10 - M25.52 2) Dr. Ellis felt he had left medial elbow epicondylitis. Clinically today I think he has both later[place] medial epicondylitis. I reviewed the Dr. Ellis note with the patient that he wanted to see him back to discuss elbow cortisone shot, possible surgery if Medrol Dosepak did not work. He will call Dr. Ellis directly to schedule follow-up, Elbow pain home care material was published Sep,Microcytosis (ICD-10 - R71.8)We discussed his iron is low normal but his iron stores are low, he has elevated reticulocyte countsuggesting he is trying to make blood. He has childhood history of iron deficiency anemia, does noteat red meat now. Therefore we will start him on ferrous sulfate and recheck CBC and iron studies next visit. If he does not improve (or even if he does) we will discuss whether we need to also do GIwork-up to look for possible rectal bleeding. Based on his history this may be chronic and dietary. Sep,Orthostasis (ICD-10 - I95.1)He is likely having mild orthostatic hypotension as a result of adding Imdur by [facility]. Orthostatic fall precautions discussed. When he gets up he should wait and not walk away if he is dizzy. If he does not do well, we may need to reduce some of his other BP medications. Call if not doing well, Orthostatic hypotension home care material was published Sep,Essential (primary) hypertension (ICD-10 - I10)Stable on current meds Sep,Osteoarthritis of spine with radiculopathy, lumbosacral region (ICD- 10 - M47.27)He has failed chronic back pain syndrome, failed [...] therapy. He will continue with pain management Sep,Mixed hyperlipidemia (ICD-10 - E78.2)Stable, appropriate statin dose, Cholesterol-lowering diet material was published Sep,Stroke (ICD-10 - I63.9)Doing well post distant stroke likely optimal baseline Sep,Insomnia (ICD-10 - G47.00)Discussed tizanidine may help his chronic insomnia. He does use CPAP for sleep apnea. He has failedmultiple sleep medications Sep,Functional dyspepsia (ICD-10 - K30)Stable on omeprazole Sep,Morbid obesity (ICD-10 - E66.01)He is now on Ozempic and excited he is started to lose some weight. He will continue with Dr. Holbrook at the bariatric clinic Sep,Impaired glucose tolerance (ICD-10 - R73.02)Risk of diabetes discussed. He has not been on Ozempic long enough to knock down his hemoglobin [id number]. We will follow Sep,djustment disorder with mixed anxiety and depressed mood (ICD-10 - F43.23)Stable chronic baseline on current meds. States mood good Sep,Migraine without status migrainosus, not intractable, unspecified migraine type (ICD-10 - G43.909)He did not complain of migraines today. [facility] Sep,Renal failure, unspecified chronicity (ICD-10 - N19)Discussed renal failure mild and stable. Will monitor Sep,OtherRTO 6 months preceded by fasting CBC, BMP, hepatic panel, lipid profile, hemoglobin A1c, iron, ferritin, reticulocyte count and sooner as needed. I repeated full lab panel because of his medical complexity. [employer] Other 04-13-2023 NoteCONSULTATION CONSULTATION DATE: 10/09/2022 TO: [...] with his Lyrica. He does report the Valatie is quite helpful and improves his quality [...] our patients to inform us about any azls-khj-lejgiev medications or herbal remedies/nutritional supplements/alternative remedies. 2. [...] treatment options with their primary care provider.[facility] [id number] Evaluation note * Encounter Date Diagnosis Assessment Notes Treatment Notes Treatment Clinical Notes Sep, Impaired glucose tolerance (ICD- 10 - R73.02) [employer] Other 03-29-2023 Evaluation note* Encounter Date Diagnosis Assessment Notes Treatment Notes Treatment Clinical Notes Aug, Medial epicondylitis of left elb ow (ICD-10 - M77.02) Mary presents with medial [...] move forward with treatment at this time. Aug,OtherAP and lateral x-rays of the left elbow were obtained. [...] will order a oral steroid taper for in flammation. Patient voices understanding and is agreeable to treatment plan. We will continue to monitor. [employer] Other 03-23-2023 Evaluation note* Encounter Date Diagnosis Assessment Notes Treatment Notes Treatment Clinical Notes Aug, Left arm swelling (ICD-10 - M79. 89) Aug,Left arm pain (ICD-10 - M79.602) [employer] Other 03-20-2023 Evaluation note* Encounter Date Diagnosis Assessment Notes Treatment Notes Treatment Clinical Notes Aug, Pain in left elbow (ICD-10 - M25 .522) [employer] Other 02-27-2023 Evaluation note* Encounter Date Diagnosis Assessment Notes Treatment Notes Treatment Clinical Notes Jul, Prediabetes (ICD-10 - R73.09) Jul,ody mass index (BMI) of 45.0-49.9 in adult (ICD-10 - Z68.42) Jul,Mixed hyperlipidemia (ICD-10 - E78.2) Jul,Essential (primary) hypertension (ICD-10 - I10) Jul,Obstructive sleep apnea (ICD-10 - G47.33) Jul,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 Discussed his weight is clearly affecting his health. I did discuss that the treatment of obesity is complex and that I do not do bariatric medications. I do think he should see medical bariatrics and it is nota bad idea to also get a surgical bariatric consult. After discussion, he is going to call the [facility] bariatric clinic back and get his [...] did request referral and would prefer the [facility] or in [place]. I will have my staff refer him to the [facility] for a bariatric surgery consult. , Staying motivated while on a weight loss plan material was published Jul,Lumbar back pain with radiculopathy affecting left lower extremity (ICD-10 - M54.16)Continue with Dr. Spencer., Lumbar radiculopathy home care material was published Jul,OtherRTO as scheduled and sooner as needed or pending above Please send today's EMR note to the bariatric surgery consult appointment [employer] Other [id number] NotePAIN MANAGEMENT CONSULTATION CONSULTATION DATE: 08/12/2022 Jose Valdovinos D.O. [address] [place] [address] Dear Jose: Regarding our patient in common, [...] myself to Mary. Regards, Yanelis Spencer M.D. /[facility]02-14-2023 NotePAIN MANAGEMENT CONSULTATION CONSULTATION DATE: 08/12/2022 [...] as to decreasing this. The patient takes Valatie 5/325 b.i.d. The patient is requesting it [...] we will not be increasing his narcotics, Valatie 5/325 on a b. i.d. and have recommended he decrease the Lyrica. The patient will be followed up in the office in two months. CC: Jose Valdovinos D.O.[facility] [id number] Evaluation note* Encounter Date Diagnosis Assessment Notes Treatment Notes Treatment Clinical Notes Jul, Prediabetes (ICD-10 - R73.09) Marcus was denied by insurance as patient does not have diabetes this is not a covered medication.We will attempt to get Jassi covered with a diagnosis of prediabetes, cardiovascular risk factor since he had a stroke and needs better glucose control in addition to weight loss. Jul,Heart disease (ICD-10 - I51.9) Jul,Stroke (ICD-10 - I63.9) Jul,ardiovascular risk factor (ICD-10 - Z91.89) [employer] Other 01-20-2023 Evaluation note* Encounter Date Diagnosis Assessment Notes Treatment Notes Treatment Clinical Notes Jun, Obesity (ICD-10 - E66.9) Findings consistent with obesity. Patient understands that this increases risk of multiple comorbidities associated with weight gain especially if there is a genetic predisposition. Discussed the complexity behind obesity and its multifactorial causes including genetics, the biological changes thatoccur with processed foods as well as lack of physical activity. We will assess for underlying causes of abnormal weight gain including thyroid dysfunction, poor sleep, medications, diet, etc. Discussed importance of adopting a healthier lifestyle in order to decrease or eliminate risk of impendingdiseases associated with excessive weight. initial goal of [...] going to bed between 10 and 1030. Jun,aytime sleepiness (ICD-10 - R40.0)Encouraged good sleep hygiene by going to bed at approximately the same time each night and similarwaking hours each day, not eating too close to bedtime, avoid excessive fluids and eating shortly before bed, turning off blue light on phone/computers, silencing notifications, etc. Fatigue during the day could also be related to blood sugar spikes and subsequent crashes related to poor dietary habits of high glucose or high carbohydrate meals and snacks. Increase water intake. Jun,epression (ICD-10 - F32.9)PHQ-9 is positive for moderate to severe depression with a score of 15 and treatment program.. Patient states mood is stable overall today and denies any significant mood swings or depressive thoughts. We would use extreme caution or avoid medications for weight loss including Qsymia, phentermine due to possibility of worsening depression. Discussed this with patient when evaluating for appropriate medication. Jun,nxiety (ICD-10 - F41.9) Jun,ERD (gastroesophageal reflux disease) (ICD-10 - K21.9)Patient has a history of GERD as well as some dysplasia identified on EGD. He does follow with gastroenterology.Treat with weight loss and dietary changes. With weight loss patient could achieve complete relief from GERD symptoms due to increased intraabdominal pressure with the goal of being weaned off of medication. Patient to work closely with dietitian to help make healthy dietary choices andavoid reflux inducing foods. Briefly discussed these including avoiding citrus, high fat dairy, high fat meats and beverages including alcohol and coffee. Jun,Migraine (ICD-10 - G43.909)Migraines are nearly a weekly basis despite Botox and Ajovy. He follows closely with neurology and is on several medications. He states his migraines started when he had a stroke. Jun,Impaired glucose tolerance (ICD-10 - R73.02) Jun,Obstructive sleep apnea (ICD-10 - G47.33)Patient has had sleep study and diagnosis of sleep apnea with compliance of CPAP. Patient understands that sleep apnea significantly increases risk of cardiac issues as well as hypertension, daytime fatigue and brain fog among others. Educated that CPAP compliance is of utmost importance to help prevent related comorbidities. Treat with weight loss with a goal of no longer needing a CPAP device. Jun,Stroke (ICD-10 - I63.9)He has a history of a brainstem stroke but he does not not have a lot of residual disability today he had intense physical therapy was able to regain strength of the 1 side of his body that became weak back in 2013. He is disabled due to the stroke however he does have some issues with word findingin office today. Jun,Mixed hyperlipidemia (ICD-10 - E78.2)With patient's history of heart disease and mixed hyperlipidemia he follows closely with a field engineer and is on several medications. We will monitor throughout the course of program and he should have improvement with adequate lifestyle change and weight loss. Discussed etiology of hyperlipidemia. Treat with decreasing the simple sweets, added sugars, refined starches and bad fats. Encouraged increased activity and exercise and continue long-term weight loss goals. Jun,idney stones (ICD-10 - N20.0) Jun,Hypertension (ICD-10 - I10)Patient has history of hypertension. Blood pressure reading [...] decreasing or eliminating BP medications as appropriate. Jun,hronic pain (ICD-10 - G89.29)Patient admits to arthritis pain pain likely exacerbated/secondary to increased weight. Treat with exercise incorporating low impact exercises or modifications as needed. Advised to that there are multiple different exercise programs available many of which can be done within the home that requiredlittle to no impact. Encouraged swimming as feasible. Slowly increase activity over time to reach goal of 30 minutes most days of the week. Encouraged to take advantage of contract sheltered workshop supervisor darrell hough at [facility] that can help work around limitations. He does have a significant amount of chronic pain for which she works with pain management with. Susanankush have prescriptions for opioid pain medications Per OARRS report. He is also on some weight positive medications for pain including nortriptyline, quetiapine etc. We will evaluate risk versus benefit as we navigate weight loss Jun,Heart disease (ICD-10 - I51.9) Jun,Snores (ICD-10 - R06.83) [employer] Other 01-05-2023 History of Present illness Narrative* Kevyn Cat PA-C - 07/03/2022 11:27 AM EST SPINE SURGERY ESTABLISHED This is a virtual visit using V Wave video visit. It required patient-provider interaction for [...] him pain. He has been going to [facility] to try massage beds, would like to [...] SIGNATURE: Kevyn Cat PA-C PATIENT NAME: Mary Prieto Barbara DATE: July 03, 2022 TIME: 11:27 AM PAGER: documented in this encounterBarn[facility]01-[facility] Miscellaneous Notes* Telephone Encounter - Greta Nunez RN - 07/03/2022 9:04 AM EST RAIMUNDO made aware of the message to review prior to virtual appointment today. documented in this encounterBarnesville Hospital12-08-2022 NoteCONSULTATION CONSULTATION DATE: 06/05/2022 HISTORY OF PRESENT ILLNESS: This is a 62-year-old gentleman who has not been seen at the Pain Clinic since November of this year. He is returning today for his chronic lower back pain and requesting medication management. The patient has had a total of six back surgeries. Most recent [facility] at [facility] July of this year. Approximately a week ago, the patient had a fall at home and spent two days in the hospital at [facility] for deconditioning. According to the patient's report, they ruled out a TIA. He is on multiple medications and being managed by his PCP. He does have bilateral radiculitis to the posterior aspect of S1 bilaterally to the level of the heel. He is on Lyrica 200 mg t.i.d., Plavix, baclofen and magnesium. The clinic, in the past, had him on Valatie 5/325 b.i.d., but he has had multiple prescribes since that time for multiple ailments. Currently, he is on no pain medications and is inquiring about returning to his Valatie. Patient's REVIEW OF SYSTEMS / PAST MEDICAL [...] pain. PLAN: We will start him on Valatie 5/325 b.i.d. for medication pain management. He is currently in [facility] and he is to continue that. Did not recommend any oral NSAIDs to the patient, as he does have third stage kidney failure. We will see the patient in three months' time for re-evaluation and medication management. Patient agrees with this plan.[facility] [id number] Evaluation + Plan note Future Scheduled Tests Radiology* MRI Spine Cervical w/o Contrast 05/28/22 [facility]11-29-2022 Evaluation note* Encounter Date Diagnosis Assessment Notes Treatment Notes Treatment Clinical Notes Apr, Other chronic pain (ICD-10 - G89 .29) We had a long talk about the [...] [facility] with [facility] as scheduled. Apr,Low back pain, unspecified (ICD-10 - M54.50)See dictation above Apr, steoarthritis of spine with radiculopathy, lumbosacral region (ICD- 10 - M47.27)See dictation above Apr,steoarthritis of cervical spine, unspecified spinal osteoarthritis complication status (ICD-10 - M47.812)See dictation above Apr,enal failure, unspecified chronicity (ICD-10 - N19)He is frustrated that in [place] they told him he needed to stop ibuprofen because of his stage III kidney failure. It is unclear whether that was diagnosed during a time of a sepsis acute illness admission. I did tell him that he should for now stay off ibuprofen. We printed a copy of his May 03 hospital BMP for him to take to his [place] physicians. It showed BUN 20, creatinine 1.59. Apr,troke (ICD-10 - I63.9)By the time of his hospital discharge she was felt he likely did not have a stroke/TIA but he remains on aspirin in addition to his Plavix for 30 days with neurology outpatient follow-up scheduled. Apr,therRTO as scheduled and sooner as needed. [employer] Other 11-11-2022 Miscellaneous Notes* Telephone Encounter - Greta Nunez RN - 05/09/2022 2:09 PM EST Will forward for review. documented in this encounterBarnesville Hospital11-08-2022 Discharge summary Author Cathy Zavala [facility] May 06, 2022 3:14pmNote Date/TimeMay 06, 2022 3:05pm[place] [address] Discharge Summary Signed Patient: Mary Jimenez MR#: [id number] : 1960 Acct:[id number] Age/Sex: 61 / M Adm Date: 2 Loc: 4N Room: [address] [place] [address]: Cathy Zavala MD Copies to: DO Cathy Bhatia MD~ Providers Date of Discharge: 05/06/22 Discharging Provider: Cathy Zavala Primary Care Provider: Jose Valdovinos Consults: 05/03/22 18:54 Consult to Neurology Routine Consult to Occupational Therapy Routine Consult to Physical Therapy Routine 05/06/22 09:41 Consult to Pain Management Routine 05/06/22 09:59 RICHAR [[facility] Transition of Care Referral] Routine Discharge Diagnosis [...] he was scheduled to get MRI at [facility]. Patient not able to get MRI [...] signs of active bleeding. Will recommend repeat CBCin 4 days and if remains anemic he [...] fluticasone propionate [Flonase Allergy Relief] 50 mcg/actuation [place],Suspension 2 spray INTRANASAL DAILY duloxetine [Cymbalta] 60 [...] pm (With Melia EUBANKS and Dr. Rodriges) [facility] Transitions of Care [Outside] - 05/07/22 9:45 am (You have been referred to the [facility] for Coordinated Care ([facility]) for a post discharge education visit because you have one or more conditions that have been associated with a moderate to high risk of complications that may increase the likelihood that you will be readmitted to the hospital again in the near future. Phone: .? Address:? [address] [place] [address], [address] NOTE:? PLEASE BRING ALL OF YOUR MEDICATION BOTTLES WITH YOU TO THE APPOINTMENT WELL YOUR DISCHARGE INSTRUCTIONS.) Jose Valdovinos DO [Primary Care Provider] - 05/27/22 1:15 pm (You have been scheduled for a follow upappointment for the following date and time, please call to reschedule if needed. This is the next soonest available appointment, they asked you please call if you need anything before then and the office will call you if anything opens up before then.) Documented By: Cathy Zavala MD 05/06/22 1504 Signed By: <Electronically signed by Cathy Zavala MD> 05/06/22 1514 [facility] Work Phone: 1(886) 704-934811-08-2022 Progress note Author Cathy Zavala [facility] May 06, 2022 2:21pmNote Date/TimeNov2021 2:21pmLom[place] [address] Hospitalist Progress Note Signed Patient: Mary Jimenez MR#: [id number] 2655 : 1960 Acct:[id number] Age/Sex: 61 / M Adm Date: 2 Loc: 4 Room: [address] [place] [address] Type: ADM INOo Attending Dr: Cathy Zavala MD Copies to: ~ Date of Service: 05/06/2022 Subjective Subjective Narrative: Patient examined at bedside with no overnight event. He has been able to ambulate with physical therapy but continues to complain of back pain radiating to right lower extremity. [facility] [...] spray 05/04/22 15:30 05/04/22 17:38 Fluticasone Propionate Norwalk 120 Norwalk/16 Gm Bottle INTRANASAL 05/04/23 15:29 2 spray [...] stenosis. Documented By: Cathy Zavala MD 05/06/22 141 Signed By: <Electronically signed by Cathy Zavala MD> 05/06/22 1421 [facility] Work Phone: 1(756) 798-742611-08-2022 Consult note Author Xavi Smith [facility] May 07, 2022 12:29pmNote Date/TimeNov2021 2:10pm[place]eta[place] [address] Pain Management Consult Note Signed Patient: Mary Jimenez MR#: [id number] 2655 : 1960 Acct:[id number] Age/Sex: 61 / M Adm Date: 2 Loc: Room: [address] [place] [address] Type: DIS INOo Attending Dr: Cathy Zavala [...] pain management and currently sees a [place] in [place]. Pain management was consultedto evaluate for interventional [...] mg PO DAILY 03/30/17 [History Confirmed 05/03/22] oedjhimm-qberpymb-xigqy acid 400 mcg-vit K 20 mcg-lycop 300 [...] and he had it today. This prohibits interventionaltreatment for 7 days. Based on his MRI [...] signed by Xavi Smith MD> 05/07/22 1229 [facility] Work Phone: 1(711) 822-600211-08-2022 Progress note Author Se Rodriges [facility] May 06, 2022 4:12pmNote Date/TimeNov2021 8:20[place] [address] Neurology Progress Note Signed Patient: Mary Jimenez MR#: [id number] 2655 : 1960 Acct:[id number] Age/Sex: 61 / M Adm Date: 2 Loc: 4N Room: 1G3250-8 Type: ADM INOo Attending Dr: Cathy Zavala MD Copies to: ~ Date of Service: 05/06/2022 Subjective Subjective Narrative: Persistent and severe back pain with radiation into bilateral lower extremities which is worse withload bearing. Review of Systems Cardiovascular Cardiovascular: Denies [...] compared to the left. CEREBELLAR EXAM: * Qehnha-qa-jqar and alternating movements are intact and normal in bilateral upper extremities * Qkxx-sm-beda and alternating movements are intact and normal [...] Recommendations OT Recommended Discharge Home with Home Health,Fpc Facility Location OT Recommended Services at 19/01 Supervision Discharge PT Recommendations PT Recommended Discharge Home with Home Health,[facility]pc Facility Location PT Recommended Services at Physical [...] July of this year on his lumbar spineat the [facility]. He had discectomy and fusion from L3 down to S1 in total. On physical examhe is hyperreflexic raising concern for a cervical [...] carotid ultrasound in July that did not revealocclusive disease 13. PT OT recommends home with home health versus SNF 14. MRI cervical spine pending 15. Consult pain management 16. We will follow I personally saw this patient on the day of the encounter, reviewed the history,performed the maldonado elements of the exam, formulated the plan of care and confirmed the LUNCHROOM MOTHER note The patient is a 61-year-old male with multiple lumbar surgeries in the past andincreased difficulty ambulating in home due to intractable back pain and inability to bear weight. The patient was sentfor open MRI scanner at a 1.5 Megan scanner due to placement of bone stimulator. The patient could not tolerate the study due to body habitus. The patient has been evaluated by physical therapy and recommendations for either home health or fdc facility. The patient will need physical therapy upon discharge. The patient has pain management physician in [facility] which she can follow-up with or can see pain management at [facility]. The patient can attempt repeat MRI scan as an outpatient and a large bore MRI scanner. Code(s): G43.009 - Migraine without aura, not intractable, without status migrainosus Status: Acute (2) Sepsis: Code(s): A41.9 - Sepsis, unspecified organism Status: Acute Documented By: LYN Solis 818 Signed By: <Electronically signed by LYN Clark> 05/06/22 0944 <Electronically signed by MD Se Rodriges> 05/06/22 1612 [facility] Work Phone: 1(904) 525-391011-07-2022 Progress note Author Se Rodriges [facility] May 05, 2022 5:07pmNote Date/TimeNov2021 9:04[place] [address] Neurology Progress Note Signed Patient: Mary Jimenez MR#: [id number] 2655 : 1960 Acct:[id number] Age/Sex: 61 / M Adm Date: 2 Loc: Room: [address] [place] [address] Type: ADM INOo Attending Dr: Cathy Zavala [...] compared to the left. CEREBELLAR EXAM: * Aaqarm-pk-uppb and alternating movements are intact and normal in bilateral upper extremities * Cuyv-ly-typp and alternating movements are intact and normal [...] Recommendations OT Recommended Discharge Home with Home Health,[facility] Facility Location OT Recommended Services at 19/01 Supervision Discharge PT Recommendations PT Recommended Discharge Home with Home Health,[facility]pc Facility Location PT Recommended Services at Physical [...] July of this year on his lumbar spineat the [facility]. He had discectomy and fusion from L3 down to S1 in total. On physical examhe is hyperreflexic raising concern for a cervical [...] persistent. On examination he is not necessarily weakhowever he does become tremulous with strength testing [...] carotid ultrasound in July that did not revealocclusive disease 13. PT OT recommends home with home health versus SNF 14. MRI cervical spine pending 15. We will follow I personally saw this patient on the day of the encounter, reviewed the history,performed the maldonado elements of the exam, formulated the plan of care and confirmed the LUNCHROOM MOTHER note Patient is a 61-year-old male with multiple lumbar surgeries admitted to the hospital due to inability to ambulate secondary to pain. The patient has good strength on neurological exam. Cannot exclude a structural lesion in the lumbarspine contributing to intractable pain on ambulation. The patientwill require MRI scan and will require sedation. [...] signed by MD Se Rodriges> 05/05/22 1709 [facility] Work Phone: 1(572) 295-567411-07-2022 Progress note Author Cathy Zavala [facility] May 05, 2022 1:17pmNote Date/TimeNov2021 1:12pmL[place] [address] Hospitalist Progress Note Signed Patient: Mary Jimenez MR#: [id number] 2655 : 1960 Acct:[id number] Age/Sex: 61 / M Adm Date: 2 Loc: 4N Room: [address] [place] [address] Type: ADM INOo Attending Dr: Cathy Zavala MD Copies to: ~ Date of Service: 05/05/2022 Subjective Subjective Narrative: Patient examined at bedside and continues to complain of back pain radiating to right lower and hasbeen having this pain since he got the [...] Dose Route Start Last Admin Trade Name Rinku PRN Reason Stop Dose Admin Hydrocodone Bitart/Acetaminophen [...] spray 05/04/22 15:30 05/04/22 17:38 Fluticasone Propionate Norwalk 120 Norwalk/16 Gm Bottle INTRANASAL 05/04/23 15:29 2 spray [...] prophylaxis, Documented By: Cathy Zavala MD 05/05/22 1303 Signed By: <Electronically signed by Cathy Zavala MD> 05/05/22 1314 [facility] Work Phone: 1(291) [phone] Progress note [facility] May [facility], 2022 4:15pmNote Date/TimeNov2021 4:11pm[place] [address] Hospitalist Progress Note Signed Patient: Mary Jimenez MR#: [id number] 2655 : 1960 Acct:[id number] Age/Sex: 61 / M Adm Date: 2 Loc: 4N Room: [address] [place] [address] Type: ADM IN Attending Dr: Cathy Zavala MD Copies to: ~ Date of Service: 05/04/2022 Subjective Subjective Narrative: Patient complaining of right leg pain which is chronic and requesting to resume his Valatie. He was not able to sleep well [...] Propionate 2 spray 05/04/22 15:30 Fluticasone Propionate Norwalk 120 Norwalk/16 Gm Bottle INTRANASAL 05/04/23 15:29 DAILY PRN [...] with Lovenox. Documented By: Cathy Zavala MD 05/04/22 161 Signed By: <Electronically signed by Cathy Zavala MD> 05/04/22 8258 [facility] Work Phone: [phone]) [phone] Consult note Author Ortega Haskins [facility] May 04, 2022 1:26pmNote Date/TimeNov2021 9:56[place] [id number] Neurology Consult Note Signed Patient: Mary Jimenez MR#: [id number] 2655 : 1960 Acct:[id number] Age/Sex: 61 / M Adm Date: 2 Loc: 4N Room: [address] [place] [address] Type: ADM IN Attending Dr: Cathy Zavala MD Copies to: DO Jose Cao DO Mazhar Rahman, MD~ HPI Consult Date: 05/04/22 8Th Grade Teacher: Ortega Haskins DO [facility] Vaccinated for COVID-19?: Yes Medical History [...] mg PO DAILY 03/30/17 [History Confirmed 05/03/22] bqecamln-ipqychtw-htzan acid 400 mcg-vit K 20 mcg-lycop 300 [...] Eagle Prince M.D.05/03/2022 3:33 PM Dictation Location: [place] [address] Chest X-Ray 05/03/22 14:44 IMPRESSION: No acute process. Impression dictated by: Eagle Prince M.D.05/03/2022 3:05 PM Dictation Location: [place] [address] Assessment/Plan (1) Atypical migraine: Assessment/Problem Details: HPI: [...] generally oriented. Attention normal. Speech is fluent an dnondysarthric. Pupils are equal and reactive Ocular motility [...] sensation decreased in distal left lower extremity moreso than right distal lower extremity. No limb ataxia. ASSESSMENT: Fluctuating leg weakness most likely related to leg symptoms that stem from chronic lumbar stenosisand radiculopathy. He had fluctuating presyncopal sensations with [...] <Electronically signed by Ortega Haskins DO> 05/04/22 1326 [facility] Work Phone: 1(429) 424-135111-05-2022 History and physical note Author Cathy Zavala [facility] May 03, 2022 6:54pmNote Date/TimeNov2021 6:54pmLometa[place] [address] Hospitalist H&P Signed Patient: Mary Jimenez MR#: [id number] 2655 : 1960 Acct:[id number] Age/Sex: 61 / M Adm Date: 2 Loc: Room: [address] [place] [address] Type: ADM IN Attending Dr: Cathy Zavala MD Copies to: DO Cathy Bhatia MD~ HPI DATE OF EXAMINATION: 05/03/22 CHIEF COMPLAINT: Dizziness with slurred speech. 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 Patient presented to ER with complaint of [...] in the beginning of the year at [facility]. He was seen in the emergency room in August and was transferred to the [facility] from the emergency room due to concern for infection and had positive blood cultures. Patient cannot recall the details but mentioned after getting discharged from the hospital he stayed in fdc facility for 3-month. He has chronic back pain with left leg sciatica after surgery he developed right leg pain. He has chronic numbness in the right foot. He follows with pain management and mentioned he has been taken off hydrocodone and switch to acetaminophen and ibuprofen. It appears he also has history of arthritis and is scheduled for MR Iof his right knee on Thursday. His labs did not show any significant abnormality and he will be keptunder observation. Review of Systems Review of Systems [...] mg PO DAILY 03/30/17 [History Confirmed 05/03/22] levquhll-yubkmhow-yijqa acid 400 mcg-vit K 20 mcg-lycop 300 [...] % (Auto) 17.2 % (.) 05/03/22 14:46 [place] % (Auto) 9.5 % (.) 05/03/22 14:46 Eos % (Auto) 4.5 % (.) 05/03/22 14:46 Baso % (Auto) 1.1 % (.) 05/03/22 14:46 Neut # (Auto) 5.0 x10E3/uL (1.8-7.7) 05/03/22 14:46 Lymph # (Auto) 1.3 x10E3/uL (1.00-4.8) 05/03/22 14:46 [place] # (Auto) 0.7 x10E3/uL (0.0-0.8) 05/03/22 14:46 [...] pH 6.0 (5.0-9.0) 05/03/22 15:55 Ur Specific [place] 1.015 (1.001-1.030) 05/03/22 15:55 Urine Protein Negative [...] <Electronically signed by Cathy Zavala MD> 05/03/22 8677 [facility] Work Phone: 1(711) 626-908011-01-2022 Miscellaneous Notes* Telephone Encounter - Heena Andino Mold Sheet Cleaner - 04/29/2022 4:06 PM EDT pt returning RN call per message below. * Telephone Encounter - Anni Douglas RN - 04/29/2022 3:24 PM EDT Left message on voicemail for patient to call office back regarding Pre- Procedure Information for spine procedure on 05/13/2022 at [facility]. documented in this encounterBarnesville Hospital10-27-2022 Miscellaneous Notes* Telephone Encounter - Greta Nunez RN - 04/24/2022 10:39 AM EDT Form signed and faxed to number requested. Faxed verification received. * Telephone Encounter - Macrina Hartmann - 04/23/2022 4:02 PM EDT Received POC from [facility] requesting signature via fax. Scanned into [employer]. documented in this [facility]10-20-2022 Miscellaneous Notes* Telephone Encounter - Christine Gutierrez [...] for him. * Telephone Encounter - Greta Nnuez RN - 04/17/2022 3:16 PM EDT Will [...] and tylenol. Please return patients call to [phone]. documented in this encounterBarnesville Hospital10-17-2022 Miscellaneous Notes* Telephone Encounter - Greta Nunez RN - 04/14/2022 10:18 AM EDT Will forward for review. documented in this [facility]10-14-2022 Evaluation note* Encounter Date Diagnosis Assessment Notes Treatment Notes Treatment Clinical Notes Mar, Counseled about COVID-19 virus i nfection (ICD-10 - Z71.89) I encouraged him to get the bivalent COVID booster soon Flu shot given today Mar,Essential (primary) hypertension (ICD-10 - I10)Stable on current meds Mar,hronic pain (ICD-10 - G89.29)See dictation below Mar,Mixed hyperlipidemia (ICD-10 - E78.2)We discussed his lipids are worse likely because [...] afford it, he will let us know. Mar,bstructive sleep apnea (ICD-10 - G47.33)Stable on CPAP, continue sleep clinic Mar,Morbid obesity (ICD-10 - E66.01)We discussed his frustration with his weight gain. He lost significant weight when he was medicallyill in the hospital. He has gained that back pretty much to his previous baseline. Once he can get back to the gym (cleared by spine surgery) hopefully he will do better. Mar,Impaired glucose tolerance (ICD-10 - R73.02)Stable. Risk of diabetes discussed Mar,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)He will continue with [facility] back surgeon for follow-up and also possible back injection. We did discuss that with open drainage to his back ongoing infection is in the differential, he did have I&Dof postsurgical infected back before. He will continue to follow with surgery and he states that atthis time they do not seem worried that this is infection. Mar,ight knee pain, unspecified chronicity (ICD-10 - M25.561)We discussed that infection post surgery or in [...] and current drainage. We discussed it is no t my specialty but further work-up may include knee joint aspiration, culture, sensitivity by orthopedics. He will await the upcoming MRI and follow-up with Dr. Zheng. I will send today's EMR note which includes his labs to Dr. Zheng. 14 Mar,enal failure, unspecified chronicity (ICD-10 - N19)His renal labs were a lot worse when he was septic in the hospital following back procedures. He isrecovering nicely from that, back to his previous baseline. We will observe but I discussed that, at this point, he does not have significant renal failure. 14 Mar,hronic rhinitis (ICD-10 - J31.0) 14 Mar,troke (ICD-10 - I63.9) 14 Mar, 2022Functional dyspepsia (ICD-10 - K30) 14 Mar, 2022Nausea (ICD-10 - R11.0) 14 Mar, 2022Encounter for long-term (current) use of medications (ICD-10 - Z79.899) 14 Mar, 2022Flu vaccine need (ICD-10 - Z23) 14 Mar,therRTO 6 months preceded by fasting CBC, BMP, hepatic panel, lipid profile, hemoglobin A1c, iron, B12,folate, ferritin, reticulocyte count and sooner as needed or pending above. Please send today's EMR note to Dr. Zheng of orthopedics. , Fluticasone nasal spray material was published [employer] Other 10-12-2022 Instructions* Patient Instructions* Laura Beltran PA-C - 04/09/2022 1:42 PM EDT Please update us tomorrow regarding drainage on dressing. Then send a picture via [employer] on Monday 04/16. PT order is in [...] (prilosec) while taking ibuprofen. documented in this encounterBarnesville Hospital10-12-2022 History of Present illness Narrative* Laura Beltran [...] is no drainage he can start PT. 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 Unable to come for follow up next Thursday, he will send an updated wound picture via [employer]. Discussed rotating tylenol and ibuprofen. If ibuprofen [...] which included preparing to see the patient, tsww-ap-aepm patient care, completing clinical documentation, performing a medically appropriate examination, counseling and educating the patient/family/caregiver, and communicating with other HCPs (not separately reported). SIGNATURE: Laura Beltran PA-C PATIENT NAME: Mary Jimenez DATE: April 09, 2022 TIME: 1:23 PM PAGER: documented in this encounterBarnesville Hospital10-04-2022 Miscellaneous Notes* Telephone Encounter - Christine Gutierrez PA-C - 04/01/2022 12:32 PM EDT I called Alfredo on 04/01/2022 at 12:32 PM. Left a voicemail informing him that I have discussed overall plan of care going forward with Dr. Steele. Will send [employer] message detailing plan. Advised to respond to message or call back with questions. documented in this encounterBarnesville Hospital09-23-2022 Miscellaneous Notes* Telephone Encounter - Gale De León - 03/21/2022 11:38 AM EDT Patient called to let office know that he had his CT done today and needs an appt to go over it. Héctor wants a refill for his Valatie. * Telephone Encounter - Macrina Hartmann - 03/21/2022 10:[address] Lumbar report dated 03/21/22 from [facility]. Scanned into [employer] via on-base. documented in this encounterBarnesville Hospital09-19-2022 Evaluation note* Encounter Date Diagnosis Assessment Notes Treatment Notes Treatment Clinical Notes Feb, Nausea (ICD-10 - R11.0) [employer] Other [id number] Miscellaneous Notes* Telephone Encounter - Greta Nunez RN - 03/13/2022 12:[address] faxed to number provided. Faxed verification received. * Telephone Encounter - Greta Nunez RN - 03/13/2022 9:38 AM EDT Called [facility] and was informed to fax the order to central scheduling at fax number . Once faxed they informed to have the patient call to schedule. documented in this encounterBarnesville Hospital09-15-2022 Miscellaneous Notes* Telephone Encounter - Laura Beltran PA-C - 03/13/2022 9:52 AM EDT Patient responded in new encounter. documented in this encounterBarnesville Hospital09-14-2022 Miscellaneous Notes* Telephone Encounter - Greta Nunez RN - 03/12/2022 12:27 PM EDT Noted. * Telephone Encounter - Merced Javed - 03/12/2022 12:11 PM EDT Patient has an appointment today. He had a creatinine level done outside the clinic. The office were he had it done is closed. He said the level is 1.33. documented in this encounterBarnesville Hospital09-08-2022 Miscellaneous Notes* Telephone Encounter - Greta Nunez [...] days. [employer] Patient last seen 2021 [facility] documented in this encounterBarnesville Hospital09-01-2022 History of Present illness Narrative* Kevyn Cat PA-C - 02/27/2022 11:27 AM EDT [...] which included preparing to see the patient, qwoy-ih-ehts patient care, completing clinical documentation, obtaining and/or reviewing separately obtained history, performing a medically appropriate examination, counseling and educating the pat ient/family/caregiver, and ordering medications, tests, or procedures. SIGNATURE: Kevyn Cat PA-C PATIENT NAME: Mary Jimenez DATE: February 27, 2022 TIME: 11:28 AM PAGER: documented in this encounterBarnesville Hospital08-30-2022 Evaluation note* Encounter Date Diagnosis Assessment Notes Treatment Notes Treatment Clinical Notes Jan, Chronic pain (ICD-10 - G89.29) He continues to follow-up with specialty care for management Jan,bstructive sleep apnea (ICD-10 - G47.33)Download was reviewed with patient. Pt's AHI is elevated at 8.2. He does have a significant leak d/t a tear in the mask which I recommended that he switch out. We will go ahead and increase his pressure to 15/11 though as he does request a higher pressure setting, an order was sent to the [employer] to have this completed. A prescription was sent to the [employer] for new supplies throughout the year. We will go forward with a download in 1 month to reevaluate DEANA, he will call sooner if problems tolerating pressure. He was encouraged to continue to use his machine nightly throughout the entire night as this does provide clinical benefit. He will follow-up in sleep clinic in 1 year or sooner pending results of download. Jan,Insomnia (ICD-10 - G47.00)Reviewed sleep restriction therapy recommendations with patient. Again, re-emphasized that patient should use bed for anything other than sleeping. He was taken off ambien and remeron d/t polypharmacy interactions, he states that he is not sleeping as well since this has been discontinued. His PM specialist is currently trying different medications to help with his back pain. Encouraged pt to tryCBT first before we add any more medications. [...] working, or resting if unable to sleep. Jan,MI 39.0-39.9,adult (ICD-10 - Z68.39)Positive effects of weight loss on DEANA were reviewed Patient is obese,The positive effects of weight loss on DEANA were reviewed. He was encouraged to continue diet modification and increase activity as tolerated, we will continue to monitor Jan,therCall if any questions or problems. For Sleep Apnea: Patient is advised to work on healthy diet choices and appropriate servings, weight control, regular exercise as directed, and reduce fat intake. Use machine regularly, and keep up with mask changes as needed. Call if problems with mask toleration, increased sleepiness, or poor response to treatment. Take medication as prescribed, keep follow upappointments, get any testing that's been ordered in a timely fashion. Do not smoke. [employer] Other [phone] Miscellaneous Notes* Telephone Encounter - Christine Gutierrez PA-C - 02/24/2022 11:58 AM EDT Order placed and faxed to the provided number. * Telephone Encounter - Sandra Mcallister - 02/24/2022 11:04 AM EDT Patient called stating that on 02/11 our office told him he had to redo his creatinine labs. He would like us to fax those orders to [facility] lab at [phone] documented in this encounterBarnesville Hospital08-29-2022 Miscellaneous Notes* Telephone Encounter - Anni Laurent RN - 02/24/2022 11:57 AM EDT Call placed to pt to set up appointment for wound check for , 02/27/2022. Message left on voicemail with return number. front desk supervisor scheduling also notified. * Telephone Encounter - Anni Laurent RN - 02/24/2022 11:01 AM EDT Message left with Healthcare nurse Vivian to send picture of incision to [facility] phone number provided for review. * Telephone Encounter - Sandra Godoy Pss - 02/24/2022 9:30 AM EDT Vivian, from [facility] called, stating the patient's incision is still leaking, and there is also a small moveable polyp type bump in the center of the incision that is painful to the touch. Please call Vivian, [facility] nurse, at [phone] to advise. documented in this encounterBarnesville Hospital08-25-2022 Miscellaneous Notes* Telephone Encounter - Anni Laurent RN - 02/20/2022 12:57 PM EDT Scan on 02/20/2022 9:33 AM by External Provider: [facility] * Telephone Encounter - Gale De León - 02/20/2022 10:30 AM EDT Received lab report from [facility], uploaded to chart and forwarded for review. documented in this encounterBarnesville Hospital08-24-2022 Miscellaneous Notes* Telephone Encounter - Anni Laurent RN - 02/19/2022 9:15 AM EDT Order faxed to [facility] PT with confirmation * Telephone Encounter - Gale De León - 02/18/2022 12:40 PM EDT Patient called asking if he can get an order for outpatient PT be sent to [facility] to fax [phone] documented in this encounterBarnesville Hospital08-18-2022 History of Present illness Narrative* Kevyn Cat [...] which included preparing to see the patient, onos-ak-zenv patient care, completing clinical documentation, obtaining and/or reviewing separately obtained history, performing a medically appropriate examination, counseling and educating the pat ient/family/caregiver, and ordering medications, tests, or procedures. SIGNATURE: Kevyn Cat PA-C PATIENT NAME: Mary Jimenez DATE: February 13, 2022 TIME: 9:50 AM PAGER: documented in this [facility]08-15-2022 Miscellaneous Notes* Plan of Care - Laura Beltran PA-C - 02/10/2022 3:27 PM EDT Form signed and sent back * Telephone Encounter - Mary Grace Alejo - 02/10/2022 12:22 PM EDT Received form from [facility] needing completion in [facility] for review. documented in this encounterBarnesville Hospital08-15-2022 Miscellaneous Notes* Telephone Encounter - Greta Nunez RN - 02/10/2022 10:35 AM EDT Will forward for review. Scan on 02/07/2022 2:12 PM by External Provider: BMP report * Telephone Encounter - Gale De León - 02/10/2022 10:13 AM EDT Received Lab report from [facility], uploaded to chart and forwarded for review. documented in this [facility]08-11-2022 Evaluation note* Encounter Date Diagnosis Assessment Notes Treatment Notes Treatment Clinical Notes Jan, Essential (primary) hypertension (ICD-10 - I10) [employer] Other [id number] Miscellaneous Notes* Telephone Encounter - Greta Nunez RN - 02/04/2022 12:54 PM EDT Will forward for review. documented in this encounterBarnesville Hospital08-04-2022 Instructions* Patient Instructions* Laura Beltran PA-C - 01/30/2022 12:00 PM EDT Please change dressing daily to ABD with tape. Do not get incision wet if it is draining. [phone]-office number documented in this encounterBarnesville Hospital08-04-2022 History of Present illness Narrative* Laura Beltran [...] which included preparing to see the patient, mhhj-np-mqqj patient care, completing clinical documentation, obtaining and/or reviewing separately obtained history, performing a medically appropriate examination, counseling and educating the pat ient/family/caregiver, ordering medications, tests, or procedures, communicating with other HCPs (not separately reported), independently interpreting results (not separately reported) and communicating results to the patient/family/caregiver. SIGNATURE: Laura Beltran PA-C PATIENT NAME: Mary Prieto Barbara DATE: January 30, 2022 TIME: 11:28 AM PAGER: * Tammie Hall MA - 01/30/2022 11:22 AM EDT 10 documented in this encounterBarnesville Hospital08-02-2022 Evaluation note* Encounter Date Diagnosis Assessment Notes Treatment Notes Treatment Clinical Notes Jan, Osteoarthritis of sp ine with radiculopathy, lumbosacral region (ICD-10 - M47.27) We had a long talk about his ongoing back pain. He is still in recovery from the 3 lumbar spine surgeries done this year as above with neurosurgery follow-up pending. We discussed his history of infection with incision and drainage and current wound that still has some drainage (apparently not feltto be currently infected). We discussed he should [...] help direct the second opinion referral. Jan, tatus post spinal surgery (ICD-10 - Z98.890)See dictation above Jan,ostoperative wound infection (ICD-10 - T81.49XA)See dictation above Jan, 2Other chronic pain (ICD-10 - G89.29)He ask about pain management. Per previous note, Dr. Spencer did not want to see him in the middle ofhis neurosurgery procedures. I suggested the patient finished with his [facility] surgeon and at one pointhe will need to link back up with Dr. Spencer. As above, he ask about Dr. Alatorre because he has heardgood things. I discussed I respect both physicians. He is going to think about it. Jan,Lumbago with sciatica, right side (ICD-10 - M54.41)See dictation above Jan,Lumbago with sciatica, left side (ICD-10 - M54.42)See dictation above Jan,2Chronic renal failure, stage 3 (moderate), unspecified whether stage 3a or 3b CKD (ICD-10 - N18.30)He had mild renal insufficiency on previous labs. It has progressed. We discussed in light of all of the above may simply be a stress response. We will follow renal function including repeat labs in 1 month. Too soon to know his long-term renal status. 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 I am okay with him trying to stop it now that he is home. I am also okay with him staying on it at least for now to help with sleep and he elected to have us refill it. We will discuss again next month. Jan,2Obstructive sleep apnea (ICD-10 - G47.33)Continue CPAP, sleep clinic. Discussed with his weight loss, next checkup he should discuss with them whether his mask needs reevaluated or whether he may need another sleep study. Jan,2Chronic insomnia (ICD-10 - F51.04)See dictation above. Currently doing very well on Seroquel and doxepin Jan,Weight loss (ICD-10 - R63.4)He lost weight because he was sick and going through surgeries. However, discussed the weight loss is positive and I would like him to keep the weight off. Jan,Encounter for long-term (current) use of medications (ICD-10 - Z79.899) Jan,Mixed hyperlipidemia (ICD-10 - E78.2) Jan,Impaired glucose tolerance (ICD-10 - R73.02) Jan,therRTO 1 month for general recheck preceded by fasting CBC, BMP, hepatic panel, lipid profile, hemoglobin A1c, TSH, T4 (weight loss) and sooner as needed. [employer] Other 07-20-2022 Miscellaneous Notes* Allied Health - RT Alvin(R) - 01/15/2022 3:20 PM EDT Radiology Service [...] IV DATA: Not applicable SIGNED BY: RT Alvin(R) January 15, 2022 12:59 PM documented in this encounterBarnesville Hospital07-12-2022 Miscellaneous Notes* Telephone Encounter - LUCIE Hernandez - 01/07/2022 8:45 AM EDT Thank you for your referral for patient, but patient active with [facility]. I will cancel referral for [facility]. documented in this encounterBarnesville Hospital07-11-2022 NoteHNO ID: [id number] Author: Taylor Tucker PA-C Service: Neurosurgery Author Type: Physician Respiratory Therapy Manager Type: Progress Notes Filed: 01/06/2022 12:57 PM Note Text: NEUROSURGERY POST OP PROGRESS NOTE SERVICE DATE: 01/06/2022 SERVICE TIME: 0720 POST OP DAY: # 6 SUBJECTIVE He [...] -- 12/31/21 1800 vte pharmacologic prophylaxis contraindicated (ny,va) 12/31/21 1800 pneumatic compression stockings (ny,va) 12/31/21 1800 activity - mobilize patient ([place]) VTE Prophylaxis: VTE prophylaxis appropriate Mary [...] DATE: January 06, 2022 TIME: 7:36 AM ETX#[id number] NoteHNO ID: [id number] Author: Lizy Oneill APRN.SHEA Service: Neurosurgery Author Type: Nurse Practitioner [...] -- 12/31/21 1800 vte pharmacologic prophylaxis contraindicated (ny,va) 12/31/21 1800 pneumatic compression stockings (ny,va) 12/31/21 1800 activity - [place]ize [place] V[place] Prophylaxis: VTE prophylaxis appropriate Mary [...] with more than 50% of the total kkcu-bs-vigh time of the visit in counseling / coordination of care. SIGNATURE: Lizy Oneill APRN.SHEA PATIENT NAME: Mary Jimenez DATE: January 05, 2022 TIME: 11:13 AM ETX#[id number] Marion General [id number] NoteHNO ID: [id number] Author: Lizy Oneill APRN.SHEA Service: Neurosurgery Author Type: Nurse Practitioner [...] -- 12/31/21 1800 vte pharmacologic prophylaxis contraindicated ([place]) 12/31/21 1800 pneumatic compression stockings (ny,va) 12/31/21 1800 activity - mobilize [place] VTE Prophylaxis: VTE prophylaxis appropriate Mary Jimenez is a 61 year old status post revision L4-pelvis instrumented fusion with Dr. Steele on 12/31/21: - recommend increasing activity - PT following, initially recommended [facility], then changed recommendation to SNF, patient will likely be discharged home if he is staying 2 more days - Slade removed POD#2, no issues voiding [...] with more than 50% of the total lwmv-fy-nyxe time of the visit in counseling / coordination of care. SIGNATURE: Lizy Oneill APRN.TUGBOAT MATE PATIENT NAME: Mary Jimenez DATE: January 04, 2022 TIME: 1:59 PM ETX#[id number] Marion General [id number] NoteHNO ID: [id number] Author: Elsy Don MD Service: General Internal [...] 79 16 98 % (more content not included)...[facility] HospitalCalirmcw03-35-5324 NoteHNO ID: [id number] Author: Lizy Oneill APRN.TUGBOAT MATE Service: Neurosurgery Author Type: Nurse Practitioner Type: [...] -- 12/31/21 1800 vte pharmacologic prophylaxis contraindicated (ny,va) 12/31/21 1800 pneumatic compression stockings (ny,va) 12/31/21 1800 activity - [place]ize [place] VTE Prophylaxis: VTE prophylaxis appropriate Mary [...] with more than 50% of the total tcfg-aa-wdhv time of the visit in counseling / coordination of care. SIGNATURE: Lizy Oneill APRN.CNP PATIENT NAME: Mary Jimenez DATE: January 03, 2022 TIME: 2:59 PM ETX#[id number] Marion General [id number] NoteHNO ID: [id number] Author: Lizy Oneill APRN.CNP Service: Neurosurgery Author [...] -- 12/31/21 1800 vte pharmacologic prophylaxis contraindicated (ny,va) 12/31/21 1800 pneumatic compression stockings [place]) 12/31/21 1800 activity - [place]ize [place] VTE Prophylaxis: VTE prophylaxis appropriate Mary Jimenez is a 61 year old status post revision L4-pelvis instrumented fusion with Dr. Steele on 12/31/21: - recommend increasing activity - seen by PT, recommended Acute Rehab - Dilaudid OPERATIONAL METEOROLOGIST discontinued this morning, pain is well controlled [...] with more than 50% of the total nobi-nf-rget time of the visit in counseling / coordination of care. SIGNATURE: Lizy Oneill APRN.CNP PATIENT NAME: Mary Jimenez DATE: January 02, 2022 TIME: 12:30 PM ETX#[id number] Marion General [id number] NoteHNO ID: [id number] Author: Christine Gutierrez PA-C Service: Neurosurgery Author Type: ? Type: Progress Notes Filed: 01/01/2022 7:42 AM Note Text: NEUROSURGERY POST OP PROGRESS NOTE SERVICE DATE: 01/01/2022 SERVICE TIME: 7:20 AM POST OP DAY: # 1 SUBJECTIVE Patient states that the preoperative symptoms of left lower extremity pain are worse. The patient reports his post-operative pain is decently controlled on OPERATIONAL METEOROLOGIST pump. His right lower extremity feels good [...] (COLACE) 100 mg ORAL BID - HYDROmorphone OPERATIONAL METEOROLOGIST 0.5 mg/mL in NaCl 0.9% 100 mL [...] Prophylaxis/Anticoagulants 12/31/21 1800 vte pharmacologic prophylaxis contraindicated ([place]) 12/31/21 1800 pneumatic compression stockings [place]) 12/31/21 1800 activity - [place]ize [place] VTE Prophylaxis: VTE prophylaxis appropriate Mary Jimenez is a 61 year old status post Revision L4-pelvis instrumented fusion. Recommend increasing activity, physical therapy , occupational therapy and pain control. Continue OPERATIONAL METEOROLOGIST pump. Pain management consult. PT, OT evaluations. Continue SCDs, IS Continue hemovac to suction. Mobilize patient as tolerated. Anticipate discharge in 2 days. SIGNATURE: Christine Gutierrez PA-C PATIENT NAME: Mary Jimenez DATE: January 01, 2022 TIME: 7:40 AM ETX#[id number] Marion General [id number] NoteHNO ID: [id number] Author: Christine Hatfield APRN.SHEA Service: Critical Care Author Type: Nurse Practitioner Type: Progress Notes Filed: 01/01/2022 1:55 AM Note Text: Type Mapper Coverage Note SERVICE DATE: January 01, 2022 SERVICE TIME: 0130 Went to assess patient due to nurse stated patient been tachycardic 110-120's. Patient day 1 post op Revision L4-pelvis fusion Patient does endorses some pain, encouraged patient to use OPERATIONAL METEOROLOGIST pump. Heme vac output 100ml Tachycardia -Stat EKG(sinus tachycardia) -obtain stat CBC -LR 500 ml bolus -Tele I personally spent 15 minutes directly supervising and providing Level 1 Care exclusive of any other billable procedure. SIGNATURE: Christine Hatfield APRN.CNP PATIENT NAME: Mary Prieto Barbara DATE: January 01, 2022 TIME: 0130 PAGER: house officerOhiohealth Marion General [id number] Procedure note* Dee Vallejo RN - 12/31/2021 1:53 PM EDT Encounter opened in error. Please disregard. documented in this encounterBarnesville Hospital07-05-2022 NoteHNO ID: [id number] Author: Mariluz Wick APRN.CRNA Service: Anesthesiology Author Type: Nurse Director Of Operations Support Type: Anesthesia Procedure Notes Filed: 12/31/2021 11:43 AM Note Text: ANESTHESIOLOGY PROCEDURE NOTE Airway General Information Procedure Start Time/Medication Administration: 12/31/2021 11:15 AM Patient location during procedure: OR Timeout Performed Pre-procedure: timeout performed Patient identity confirmed: arm band, care sales team recruiter and patient Staffing Anesthesiologist: David Og MD CONTENT PRODUCTION SPECIALIST: Mariluz Wick APRN.CONTENT PRODUCTION SPECIALIST Performed by: ANDREA Indications and Patient Condition [...] SIGNATURE: Mariluz Wick APRN.CRNA PATIENT NAME: Mary Prieto Barbara DATE: December 31, 2021 TIME: 11:42 AM CSN: [id number] Miscellaneous Notes* Plan of Care - Laura Beltran PA-C - 12/19/2021 8:59 AM EDT Will close this encounter. There is already an encounter regarding pain med refills * Telephone Encounter - Joanne Jim RN - 12/18/2021 11:55 AM EDT Please see patient Mychart message with attachment. documented in this encounterBarnesville Hospital06-21-2022 Miscellaneous Notes* Telephone Encounter - Joanne Jim RN - 12/17/2021 2:49 PM EDT Phone encounter also with this same refill request for Valatie. Waiting on response from patient to have attachment reviewed by RAIMUNDO. * Telephone Encounter - Mary Grace Alejo - 12/17/2021 1:59 PM EDT Call from patient requesting refill. Pending Prescriptions Disp Refills HYDROCODONE 10 MG-ACETAMINOPHEN 325 MG TABLET 38 tablet 0 Sig: Take 1 tablet by mouth every 8 hours as needed for pain. LILLIAN Class: C-II LAWSON: No [employer] Patient last seen 2021 Mary Grace Salinassec Electronically signed by Mary Grace Torresrian [facility] at 12/17/2021 1:59 PM EDT documented in this encounterBarnesville Hospital06-21-2022 Instructions* Patient Instructions* Cleo Loza APRN.SHEA - 12/17/2021 11:21 AM EDT PATIENT PREOPERATIVE INSTRUCTIONS Christine Gutierrez PA-C has scheduled you for your procedure at this [facility] center: [facility]: [phone] --[address] [place] [address]. On your scheduled day of surgery, please [...] Procedures: - YOU MUST HAVE A RESPONSIBLE TEXTILE CHEMIST TAKE YOU HOME. A MECHANICAL TECH OR FIELD ASSEMBLY SUPERVISOR CANNOT BE MADE A RESPONSIBLE TEXTILE CHEMIST. - We recommend that a responsible person [...] Advance Directive, please fax a copy to [phone] or email to for it to be [...] your chart that day. documented in this encounterBarnesville Hospital06-21-2022 History and physical note * Cleo Loza [...] 2021 TIME: 11:17 AM documented in this encounterBarnesville Hospital06-09-2022 History of Present illness Narrative* Joanne Jim [...] and post op restrictions. Provided to patient: [facility], skin prep supplies, Spine Surgery Pre/post op education packet. Yes. Mailed to patent's home address listed in chart. Reviewed with patient to report to registration desk for surgery ? Yes. Reviewed with the patient that a business office representative will be calling him the day [...] concerns. Joanne Jim RN documented in this encounterBarnesville Hospital05-25-2022 Evaluation + Plan note Extracted from:Title:ED NoteAuthor:Stephani Coley M.D. HDate:11/20/21 1. Abdominal pain (R10.9: Un specified abdominal [...] Tests Pending * Vancomycin Level Trough 11/23/21 [facility]05-12-2022 Miscellaneous Notes* Telephone Encounter - Macrina Kirkland RN - 11/07/2021 8:00 AM EDT referral placed for pain management * Telephone Encounter - Sandra Godoy Pss - 11/06/2021 3:25 PM EDT Patient called stating he had surgery on Aug 16 and is currently in [facility] dueto not being able to walk. He is about to lose his fdc coverage and will soon be discharged. Patient will be going to pain management and states his Pain Management doctor (Dr Yanelis Zuniga [facility]) needs clearance or a release (the patient wasn't clear on what was needed), so that he can get treatment from Dr Spencer. For questions, call Dr Spencer's office at [phone] documented in this encounterBarnesville Hospital04-28-2022 Miscellaneous Notes* Telephone Encounter - Bakari Reyes V, MD - 10/24/2021 9:14 AM EDT The patient has finished 6 weeks of IV vancomycin as of today Spoke to the neurosurgeon; will discontinue intravenous vancomycin and pull his PICC line out Started doxycycline 100 mg p.o. twice daily for additional 2 weeks Further follow-up by the neurosurgery clinic. documented in this encounterBarnesville Hospital04-27-2022 History of Present illness Narrative* Christine Gutierrez [...] continue with Physical and Occupational Therapy at [facility]. We will update him regarding antibiotic recommendations. [...] TIME: 8:12 AM PAGER: documented in this encounterBarnesville Hospital04-26-2022 History of Present illness Narrative* Bakari Reyes V, MD - 10/22/2021 9:19 AM EDT SUBJECTIVE: Mary Jimenez is a 61 year old male who presents for fallow up INTERVAL HISTORY: This is a patient seen by me recently at . 61 year old male patient, PMHx Dyslipidemia, HTN, DEANA, and CVA. He underwent L5/S1 transforaminal lumbar interbody fusion (TLIF) on 08/16 at [facility]. Immediate post op period was smooth without complications. Parag were removed on 09/05 without problems at that time. However, 2 days laterhe started to c/o progressive pain at the surgical site, severe, sharp in quality, radiating to theposterior surface of suresh LE. Then, [facility] nurse noticed that the surgical wound was erythematous with worsening of a previously-noted serous drainage. He otherwise denied feeling of hotness, chills, or rigors. He then presented to [facility] ED where he was to be febrile at 103 F. He was then transferred and admitted to [facility]. Vancomycin IV was started. Lumbar spine [...] was placed and patient was discharged to fdc facility on intravenous vancomycin as he has significant history for penicillin allergy. I have followed his laboratory work although the fdc facility has not been very regularin ofelia reports to me The patient states that he still has pain but able to participate in OT and PT at the fdc facility. He has had a virtual visit [...] No follow-ups on file. documented in this encounterBarnesville Hospital04-13-2022 History of Present illness Narrative* Loyda Steele MD - 10/09/2021 10:40 AM EDT SPINE SURGERY FOLLOW UP SERVICE DATE: 10/09/2021 SURGERY DATE: 08/16/21, 09/12/21 Mary Jimenez is seen for 1 month post operative follow up. S/p L5/S1 TLIF and lumbar wound washout on 08/16/21 and 09/12/21 At [facility] he complained of low back pain and [...] TIME: 8:12 AM PAGER: documented in this encounterBarnesville Hospital04-06-2022 History of Present illness Narrative* Loyda Steele [...] TIME: 8:01 AM PAGER: documented in this encounterBarnesville Hospital03-09-2022 History of Present illness Narrative* Laura Beltran PA-C - 09/04/2021 11:20 AM EST Opened in error documented in this encounterBarnesville Hospital02-21-2022 NoteHNO ID: [id number] Author: Elsy Don MD Service: General Internal [...] , Disp: , Rfl: , 08/15/2021 [place] [address] OMEPRAZOLE (PRILOSEC ORAL), Take 40 mg by [...] , Rfl: , 07/29/2021 (more content not included)...[facility] HospitalItrxeqgo10-33-4097 NoteHNO ID: [id number] Author: Kevyn Cat PA-C Service: Neurosurgery Author Type: Physician Respiratory Therapy Manager Type: Progress Notes Filed: 08/19/2021 9:30 AM [...] independently -PT recommends home PT -Incentive spirometry, HERBERT marques, SCDs, start Heparin [...] 0946 -- 08/18/21 1000 graduated compression stockings ([place], [place]) 08/16/21 1700 vte pharmacologic prophylaxis contraindicated ([place]) 08/16/21 1700 pneumatic compression stockings ([place]) 08/16/21 1700 activity - mobilize patient [place]) VTE Prophylaxis: VTE prophylaxis appropriate SIGNATURE: Kevyn Cat PA-C PATIENT NAME: Mary Jimenez DATE: August 19, 2021 TIME: 9:25 [facility]02-20-2022 NoteHNO ID: [id number] Author: Myra Alejandro APRN.TUGBOAT MATE Service: Neurosurgery Author Type: Nurse Practitioner Type: [...] SC this evening -Post-operative pain control, Dilaudid OPERATIONAL METEOROLOGIST discontinued, start Tylenol scheduled and oxycodone and [...] 0946 -- 08/18/21 1000 graduated compression stockings (ny,va) 08/16/21 170 vte pharmacologic prophylaxis contraindicated (ny,va) 08/16/21 170 pneumatic compression stockings ([place]) 08/16/21 170 activity - mobilize patient (ny,va) VTE Prophylaxis: VTE prophylaxis appropriate SIGNATURE: Myra Alejandro APRN.CNP PATIENT NAME: Mary Jimenez DATE: August 18, 2021 TIME: 1:09 [facility]02-20-2022 NoteHNO ID: [id number] Author: Elsy Don MD Service: General Internal [...] , Disp: , Rfl: , 08/15/2021 [place] [address] OMEPRAZOLE (PRILOSEC ORAL), Take 40 mg by [...] Rfl: , 07/29/2021 MAGN (more content not included)...[facility] HospitalAlqnakfb24-05-5425 NoteHNO ID: [id number] Author: EUGENIE Baker Service: Care Management Author Type: Sales Developer Type: Care Mgt Initial Assessment Filed: 08/17/2021 2:15 PM Note Text: CARE MANAGEMENT: ASSESSMENT AND DISCHARGE PLAN SERVICE DATE: August 17, 2021 SERVICE TIME: 2:10 PM PRIMARY CARE PHYSICIAN: Jose Valdovinos DO ADMISSION STATUS: Inpatient Needs Prior to Discharge: To Be Determined;Accepting Facility;Bed Availability;Discharge Transportation MEDICAL: O MEDADVANTAGE O Patient/Slipcover Cutter Stated Goals: To have reduction in pain;To improve my functional status Health Insurance: [employer] Health Issues Impacting Discharge Plan: Newly diagnosed;Chronic Newly Diagnosed: s/p TLIF Decompression Laminectomy Chronic: HTN Last Discharge Date: 12/12/14 Is this Within the Past 30 days? Last discharge within 30 days: No Advance Directive: Current Advance Directive: None Technology Sales Representative Attempted to Assist with AD Completion: Yes [...] shower Has the Patient Been in a Fpc Facility in the Past 30 days?: No SOCIAL: Living Arrangements: Home Lives With: Alone Financial Resources: Disabled Primary Contact: Extended Emergency Contact Information Primary Emergency Contact: Dyllan Jimenez Mobile Relation: Father Supportive Patient Contact:: Yes Contact Resources: Family Family Name/Phone: Dyllan Jimenez (Father): [phone] Caregiver AssessmentCaregiver is ready, willing and able [...] Completely I feel financially burdened by my tpf-oz-rvqsux expenses for my prescription medication:: 0 - Disagree Completely Risk Score: 0 Patient is categorized as: Low risk < 2 Are you interested in bedside delivery of your medications? No Is Patient Psychosocially Complex?: No ASSESSMENT AND PLAN: Medical Needs: Medical Needs: Fall risk or frequent falls Psychosocial Needs: Psychosocial Needs: None FREEDOM OF CHOICE EXPLAINED: [place] of Choice Given: Yes Level of Care Discussed: Fpc Facility Financial Disclosure Provided: Yes Financial Disclosure Comments: [facility] Providers Provider List: [facility] Facility Provider list within the patient's requested geographic area shared with the patient/family: Yes within: 25 miles of zip code: [address] Quality and resource use metrics shared with the patient that are relevant to the patient's goals of care and treatment preferences:: Yes Metrics: Potentially Preventable 30-day Post Discharge Readmission Rates POTENTIAL TRANSITION PLANS Home;Fpc Facility/Intermediate Care Facility;To Be Determined SW met [...] Pt selected referrals be placed to: 1. [facility] and 2. [facility] [place]. MAIN sent referrals via ReferBrightriDroplr. Pt will need MMT for discharge transportation. Care Management will continue to follow. SIGNATURE: EUGENIE Baker PATIENT NAME: Mary Jimenez DATE: August 17, 2021 TIME: 2:10 PM PAGER/CONTACT #: [phone] [id number] NoteHNO ID: [id number] Author: Annie Coto APRN.TUGBOAT MATE Service: Neurosurgery Author Type: Nurse Practitioner Type: [...] (COLACE) 100 mg ORAL BID - HYDROmorphone OPERATIONAL METEOROLOGIST 0.5 mg/mL in NaCl 0.9% 100 mL [...] Prophylaxis/Anticoagulants 08/16/21 1700 vte pharmacologic prophylaxis contraindicated ([place]) 08/16/21 1700 pneumatic compression stockings ([place]) 08/16/21 1700 activity - mobilize patient ([place], [place]) VTE Prophylaxis: VTE prophylaxis appropriate Mary Jimenez is a 61 year old status post L5/S1 TLIF. Recommend increasing activity, physical therapy , occupational therapy, rehab consult, discharge planning and pain control. -PT rec SNF, CM to arrange -pain control adequate with OPERATIONAL METEOROLOGIST, will attempt to transition to oral meds today -dc slade -plan post op XR tomorrow -start heparin tomorrow -bowel regimen Anticipate discharge in 2 days. *Discussed with Dr Steele SIGNATURE: Annie Coto APRN.CNP PATIENT NAME: Mary Jimenez DATE: August 17, 2021 TIME: 12:37 PM ETX#[id number] Marion General [id number] NoteHNO ID: [id number] Author: MARILOU Hobson Service: Anesthesiology Author Type: Senior It Assistant Type: Anesthesia Procedure Notes Filed: 08/16/2021 11:13 [...] August 16, 2021 TIME: 11:12 AM CSN: [id number] History of Past illness Narrative* ProblemNoted DateResolved DateSecondary fuiczdiupdeb07/09/2022 08/07/20211119Tbzyqetwzpjp57seudoarthrosis of lumbar spine piate foizkmpzcd21Headache(784.0) 2Chronic daily iargyeme902Chronic back painMedication overuse odkhricg53 documented as of this encounter (statuses as of 09/30/2021) [facility]02-09-2022 History of Past illness Narrative* ProblemNoted Date Resolved DateSecondary nwknfhmjeiyg21acroiliitis10/17/2015 08/18/2021seudoarthrosis of lumbar spine2Opiate dependence Headache(784.0)2Chronic daily headache 2Chronic back pain07/18/Medication overuse zrbfucde022documented as of this encounter (statuses as of 10/02/2021) [facility]02-09-2022 History of Past illness Narrative* ProblemNoted Date Resolved DateSecondary qogizskvtvgj73/09/202202/6087Aysoxsjdqxyy61/20/2016 08/18/2021seudoarthrosis of lumbar spinepiate dependence Headache(784.0)2Chronic daily headache 2Chronic back painMedication overuse rthvckef312documented as of this encounter (statuses as of 10/22/2021) [address]09-2022 History of Past illness Narrative* ProblemNoted Date Resolved DateSecondary ahqqzwktdjdf52/09/202202/1913Qvzvutrlgblb21/20/2016 08/18/2021seudoarthrosis of lumbar spinepiate dependence Headache(784.0)2Chronic daily headache 2Chronic back painMedication overuse idyqkpnq272documented as of this encounter (statuses as of 10/23/2021) [facility]02-09-2022 History of Past illness Narrative* ProblemNoted Date Resolved DateSecondary phtkqoivgqlb94/09/202202/1793Nwninqehjirw22/20/2016 08/18/2021seudoarthrosis of lumbar spine2Opiate dependence Headache(784.0)2Chronic daily headache 2Chronic back painMedication overuse lwujhcjo732documented as of this encounter (statuses as of 10/24/2021) [facility]02-09[facility]2022 History of Past illness Narrative* ProblemNoted Date Resolved DateSecondary abggyxnjdptc92/09/202202/6557Opepyvkxuuel77/20/2016 08/18/2021seudoarthrosis of lumbar spinepiate dependence Headache(784.0)2Chronic daily headache 2Chronic back painMedication overuse qmfkrdea442documented as of this encounter (statuses as of 11/04/2021) [address]09-2022 History of Past illness Narrative* ProblemNoted Date Resolved DateSecondary gekjyphoulsl83acroiliitis10/17/2015 08/18/2021seudoarthrosis of lumbar spinepiate dependence Headache(784.0)2Chronic daily headache 2Chronic back painMedication overuse lkzedhws302documented as of this encounter (statuses as of 11/07/2021) [facility]-09[facility]2022 History of Past illness Narrative* ProblemNoted Date Resolved DateSecondary fthreqicrtpg11/09/202202/8979Bcjozeklscij65/20/2016 08/18/2021seudoarthrosis of lumbar spine2Opiate dependence Headache(784.0)2Chronic daily headache 2Chronic back pain07/18/Medication overuse tsfqguxk252documented as of this encounter (statuses as of 12/05/2021) [facility]02-09[facility]2022 History of Past illness Narrative* ProblemNoted Date Resolved DateSecondary cgkudxzvczys22/09/202202/2661Wpemiftshkbc22/20/2016 08/18/2021seudoarthrosis of lumbar spinepiate dependence Headache(784.0)2Chronic daily headache 2Chronic back painMedication overuse zqngnjrw272documented as of this encounter (statuses as of 12/06/2021) [facility]2022 History of Past illness Narrative* ProblemNoted Date Resolved DateSecondary moawrldoyfnn06/09/202202/7226Pkqdsvmnisos85/20/2016 08/18/2021seudoarthrosis of lumbar spinepiate dependence Headache(784.0)2Chronic daily headache 2Chronic back pain07/18/Medication overuse coljlkrr632documented as of this encounter (statuses as of 12/17/2021) [facility]2022 History of Past illness Narrative* ProblemNoted Date Resolved DateSecondary fzcukcddxxps84/09/202202/1495Lzflcmvravow64/20/2016 08/18/2021seudoarthrosis of lumbar spine2Opiate dependence Headache(784.0)2Chronic daily headache 2Chronic back painMedication overuse dgkyeagu362documented as of this encounter (statuses as of 12/19/2021) [facility]09[facility]2022 History of Past illness Narrative* ProblemNoted Date Resolved DateSecondary rcivymbarhda63/09/202202/6106Myngyecrjwkn56/20/2016 08/18/2021seudoarthrosis of lumbar spinepiate dependence Headache(784.0)2Chronic daily headache 2Chronic back painMedication overuse sabzhklm182documented as of this encounter (statuses as of 12/31/2021) [address]09-2022 History of Past illness Narrative* ProblemNoted Date Resolved DateSecondary vqxhpndzynsd64acroiliitis10/17/2015 08/18/2021seudoarthrosis of lumbar spinepiate dependence Headache(784.0)2Chronic daily headache 2Chronic back painMedication overuse sxzjveot012documented as of this encounter (statuses as of 12/31/2021) [facility]2022 History of Past illness Narrative* ProblemNoted Date Resolved DateSecondary vzaigqxippim39/09/202202/2131Kxjuektztraf86/20/2016 08/18/2021seudoarthrosis of lumbar spine2Opiate dependence Headache(784.0)2Chronic daily headache 2Chronic back painMedication overuse adidqgcd332documented as of this encounter (statuses as of 01/07/2022) [facility]02[facility]09[facility]2022 History of Past illness Narrative* ProblemNoted Date Resolved DateSecondary hqwmknrwlaug40/09/202202/4305Oeegqnbxplja66/20/2016 08/18/2021seudoarthrosis of lumbar spinepiate dependence Headache(784.0)2Chronic daily headache 2Chronic back painMedication overuse caozzheo442documented as of this encounter (statuses as of 01/16/2022) [facility]2022 History of Past illness Narrative* ProblemNoted Date Resolved DateSecondary ldxjyuvutjwb61/09/202202/8195Etqyizyyfcpy39/20/2016 08/18/2021seudoarthrosis of lumbar spinepiate dependence Headache(784.0)2Chronic daily headache 2Chronic back pain07/18/Medication overuse pbnjntrd472documented as of this encounter (statuses as of 01/31/2022) [facility]2022 History of Past illness Narrative* ProblemNoted Date Resolved DateSecondary fnyuctdyuixj99/09/202202/2765Eftmqnpxjvas84/20/2016 08/18/2021seudoarthrosis of lumbar spine2Opiate dependence Headache(784.0)2Chronic daily headache 2Chronic back painMedication overuse nsdhrzbh772documented as of this encounter (statuses as of 02/04/2022) [facility]2022 History of Past illness Narrative* ProblemNoted Date Resolved DateSecondary jmldshfezwjd28/09/202202/9698Noaodauoycxf09/20/2016 08/18/2021seudoarthrosis of lumbar spine2Opiate dependence Headache(784.0)2Chronic daily headache 2Chronic back painMedication overuse azyqyplo822documented as of this encounter (statuses as of 02/10/2022) [facility]2022 History of Past illness Narrative* ProblemNoted Date Resolved DateSecondary bjornveflwaw98/09/202202/3469Tlazcehwtsyc46/20/2016 08/18/2021seudoarthrosis of lumbar spine2Opiate dependence Headache(784.0)2Chronic daily headache /2Chronic back painMedication overuse ipapukqd772documented as of this encounter (statuses as of 02/10/2022) [facility]2022 History of Past illness Narrative* ProblemNoted Date Resolved DateSecondary ryhvbfggvfti88/09/202202/2194Osixxfdmfzaf46/20/2016 08/18/2021seudoarthrosis of lumbar spine2Opiate dependence Headache(784.0)2Chronic daily headache 2Chronic back painMedication overuse xchdpett172documented as of this encounter (statuses as of 02/13/2022) [facility]02[facility]2022 History of Past illness Narrative* ProblemNoted Date Resolved DateSecondary uhsrtgskgxpe90/09/202202/9525Akxljxusbgjw94/20/2016 08/18/2021seudoarthrosis of lumbar spinepiate dependence Headache(784.0)2Chronic daily headache 2Chronic back painMedication overuse gqmdvgyz772documented as of this encounter (statuses as of 02/19/2022) [facility]20[facility] History of Past illness Narrative* ProblemNoted Date Resolved DateSecondary jvzyntkuvzkk56/09/202202/0607Lyamhrdsrxns72/20/2016 08/18/2021seudoarthrosis of lumbar spine2Opiate dependence Headache(784.0)2Chronic daily headache 2Chronic back painMedication overuse fyevxhxj862documented as of this encounter (statuses as of 02/20/2022) [facility]2022 History of Past illness Narrative* ProblemNoted Date Resolved DateSecondary aoesaqsjtgsn29/09/202202/5616Gtpvxiotnals86/20/2016 08/18/2021seudoarthrosis of lumbar spine2Opiate dependence Headache(784.0)2Chronic daily headache 2Chronic back painMedication overuse ejgnzwhx262documented as of this encounter (statuses as of 02/21/2022) [facility]20[facility] History of Past illness Narrative* ProblemNoted Date Resolved DateSecondary rxscvalhkuct38/09/202202/3380Avyifthafxyo36/20/2016 08/18/2021seudoarthrosis of lumbar spinepiate dependence Headache(784.0)2Chronic daily headache 2Chronic back pain07/18/Medication overuse hocjrmgl232documented as of this encounter (statuses as of 02/24/2022) [facility]02[facility]2022 History of Past illness Narrative* ProblemNoted Date Resolved DateSecondary skkoisispvzg31/09/202202/4809Ekzqpyjzzveh85/20/2016 08/18/2021seudoarthrosis of lumbar spine2Opiate dependence Headache(784.0)2Chronic daily headache 2Chronic back pain07/18/Medication overuse /20/2documented as of this encounter (statuses as of 02/27/2022) [facility]2022 History of Past illness Narrative* ProblemNoted Date Resolved DateSecondary mgvsyvuwjwlg16/09/202202/1097Dkhacnvzxqle82/20/2016 2Pseudoarthrosis of lumbar spine2Opiate dependence Headache(784.0)2Chronic daily headache 2Chronic back painMedication overuse meaaeddd422documented as of this encounter (statuses as of 03/06/2022) [facility]2022 History of Past illness Narrative* ProblemNoted Date Resolved DateSecondary /09/202202/6791Cqloxzjtxjws24/20/2016 08/18/2021seudoarthrosis of lumbar spinepiate dependence Headache(784.0)2Chronic daily headache 2Chronic back painMedication overuse vhmadouk712documented as of this encounter (statuses as of 03/07/2022) [facility]2022 History of Past illness Narrative* ProblemNoted Date Resolved DateSecondary dmgjzvxinsyv02/09/202202/9015Hqfcvmyitsvz47/20/2016 08/18/2021seudoarthrosis of lumbar spine2Opiate dependence Headache(784.0)2Chronic daily headache 2Chronic back painMedication overuse hrasdpuy412documented as of this encounter (statuses as of 03/12/2022) [facility]2022 History of Past illness Narrative* ProblemNoted Date Resolved DateSecondary aipgqukzhtal06/09/202202/1914Iiajtwzrrzux67/20/2016 2Pseudoarthrosis of lumbar spine/2Opiate dependence Headache(784.0)2Chronic daily headache 2Chronic back painMedication overuse lsvpqdfz762documented as of this encounter (statuses as of 03/13/2022) [facility]2022 History of Past illness Narrative* ProblemNoted Date Resolved DateSecondary ftbumsvorbhi61/09/202202/9625Afnkgsdtkxry69/20/2016 08/18/2021seudoarthrosis of lumbar spinepiate dependence Headache(784.0)2Chronic daily headache 2Chronic back pain07/18/Medication overuse keuhyxqr412documented as of this encounter (statuses as of 03/13/2022) [facility]20[facility] History of Past illness Narrative* ProblemNoted Date Resolved DateSecondary azaedaowhbic43/09/202202/9149Mttknohjytrh32/20/2016 08/18/2021seudoarthrosis of lumbar spinepiate dependence 10/20/Headache(784.0)2Chronic daily headache 2Chronic back pain07/18/Medication overuse lbtdnbba922documented as of this encounter (statuses as of 03/21/2022) [facility]2022 History of Past illness Narrative* ProblemNoted Date Resolved DateSecondary cqlgvivvvvxo87/09/202202/3587Qyjqlbwxfwvb81/20/2016 2Pseudoarthrosis of lumbar spinepiate dependence Headache(784.0)2Chronic daily headache 2Chronic back painMedication overuse sxsbtrii492documented as of this encounter (statuses as of 04/01/2022) [facility]2022 History of Past illness Narrative* ProblemNoted Date Resolved DateSecondary fvjobjoawnpx69/09/202202/1513Dacormxrmpuk72/20/2016 08/18/2021seudoarthrosis of lumbar spinepiate dependence Headache(784.0)2Chronic daily headache 2Chronic back painMedication overuse aijkjzfz022documented as of this encounter (statuses as of 04/01/2022) [facility]2022 History of Past illness Narrative* ProblemNoted Date Resolved DateSecondary tkyozeetfuuw32/09/202202/8510Qjeqpgxevqyp67/20/2016 08/18/2021seudoarthrosis of lumbar spinepiate dependence Headache(784.0)2Chronic daily headache 2Chronic back painMedication overuse puaxcxof602documented as of this encounter (statuses as of 04/09/2022) [facility]2022 History of Past illness Narrative* ProblemNoted Date Resolved DateSecondary fbxngqivmbqt98/09/202202/8351Wdyhveagudgd77/20/2016 2Pseudoarthrosis of lumbar spinepiate dependence Headache(784.0)2Chronic daily headache 2Chronic back painMedication overuse pfghkcsl462documented as of this encounter (statuses as of 04/14/2022) [facility]2022 History of Past illness Narrative* ProblemNoted Date Resolved DateSecondary ncnptbifquaf34/09/202202/7720Othweyrielxg75/20/2016 08/18/2021seudoarthrosis of lumbar spinepiate dependence Headache(784.0)2Chronic daily headache 2Chronic back painMedication overuse cutsbmua432documented as of this encounter (statuses as of 04/16/2022) [facility]2022 History of Past illness Narrative* ProblemNoted Date Resolved DateSecondary hzgqsriijgjh73/09/202202/1060Nyslygfctfbk51/20/2016 08/18/2021seudoarthrosis of lumbar spinepiate dependence Headache(784.0)2Chronic daily headache 2Chronic back pain07/18/Medication overuse curzbuzc752documented as of this encounter (statuses as of 04/17/2022) [facility]2022 History of Past illness Narrative* ProblemNoted Date Resolved DateSecondary wfjfthlmzbir55/09/202202/1033Exoyydvhcjpx70/20/2016 2Pseudoarthrosis of lumbar spine06/12/314578/20/2022Opiate dependence Headache(784.0)2Chronic daily headache 2Chronic back painMedication overuse noygjsbq972documented as of this encounter (statuses as of 04/24/2022) [facility]2022 History of Past illness Narrative* ProblemNoted Date Resolved DateSecondary tcrnakcyaewj80/09/202202/5900Dlbhdedrgocx11/20/2016 08/18/2021seudoarthrosis of lumbar spinepiate dependence Headache(784.0)2Chronic daily headache 2Chronic back painMedication overuse uuepriyg952documented as of this encounter (statuses as of 04/25/2022) [facility] History of Past illness Narrative* ProblemNoted Date Resolved DateSecondary klekzixvrmod75/09/202202/8565Ujugmhgtlqhz65/20/2016 08/18/2021seudoarthrosis of lumbar spinepiate dependence Headache(784.0)2Chronic daily headache 2Chronic back painMedication overuse njdjszqc052documented as of this encounter (statuses as of 04/29/2022) [facility] History of Past illness Narrative* ProblemNoted Date Resolved DateSecondary yhrjjzruhmxm53/09/202202/9458Pywryplwxxxo85/20/2016 2Pseudoarthrosis of lumbar spinepiate dependence Headache(784.0)2Chronic daily headache 2Chronic back painMedication overuse wpteelms292documented as of this encounter (statuses as of 05/09/2022) [facility] History of Past illness Narrative* ProblemNoted Date Resolved DateSecondary omxppctpkieq76/09/202202/0405Hfvzcxcakzxs59/20/2016 08/18/2021seudoarthrosis of lumbar spinepiate dependence Headache(784.0)2Chronic daily headache 2Chronic back pain07/18/Medication overuse utkecvng282documented as of this encounter (statuses as of 06/12/2022) [facility] History of Past illness Narrative* ProblemNoted Date Resolved DateSecondary /09/202202/6216Wrgtjvjdaxoz52/20/2016 08/18/2021seudoarthrosis of lumbar spine2Opiate dependence Headache(784.0)2Chronic daily headache 2Chronic back pain07/18/Medication overuse danyjqlz252documented as of this encounter (statuses as of 07/04/2022) [facility] History of Past illness Narrative* ProblemNoted Date Resolved DateSecondary ufpoinafizun53/09/202202/9954Wmcnsovlaogh44/20/2016 2Pseudoarthrosis of lumbar spinepiate dependence Headache(784.0)2Chronic daily headache 2Chronic back painMedication overuse uxsjsfdo992documented as of this encounter (statuses as of 07/04/2022) [facility] History of Past illness Narrative* ProblemNoted Date Diagnosed DateResolved DateSecondary crxezokrulan04 Palaxsyhlnhz19seudoarthrosis of lumbar spine12/08/2014 08/18/2021piate jvwopaakli53Headache(784.0)07/18/2014 2Chronic daily awukcktg372Chronic back pain Medication overuse htzyxuoy222documented as of this encounter (statuses as of 10/07/2023) [facility]01-25-2022 Evaluation note* Encounter Date Diagnosis Assessment Notes Treatment Notes Treatment Clinical Notes Jun, Chronic rhinitis (ICD-10 - J31.0 ) His chronic rhinitis is multifactorial. We strongly stressed the nasal decongestant addictive part and he again has to simply stop cold turkey. He is already on Flonase nasal spray twice daily and hewill continue that, can also add saline nasal [...] and we will discuss in the future. 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 Spencer of pain management and [facility] surgery with lumbar surgical revision pending. He did asked me if I would give him another round of steroids. I told him I am reluctant to do so toooften and especially with his pending surgery. Jun,Lumbar back pain with radiculopathy affecting left lower extremity (ICD-10 - M54.16) See dictation above Jun,hronic pain (ICD-10 - G89.29) See dictation above Jun,Mixed hyperlipidemia (ICD-10 - E78.2) Stable, appropriate statin dose Jun,troke (ICD-10 - I63.9) Stable optimal baseline Jun,bstructive sleep apnea (ICD-10 - G47.33) Continue CPAP, sleep clinic in Jun,Functional dyspepsia (ICD-10 - K30) Stable on omeprazole Jun,djustment disorder with mixed anxiety and depressed mood (ICD-10 - F43.23) Stable on Remeron likely optimal baseline Jun,Migraine without status migrainosus, not intractable, unspecified migraine type (ICD-10 - G43.909) He states doing well with Botox. [facility] with [facility]. Jun,Impaired glucose tolerance (ICD-10 - R73.02) We discussed his hemoglobin A1c is higher likely secondary to his weight gain. Healthy diet and weight encouraged. Risk of diabetes discussed. Jun,Morbid obesity (ICD-10 - E66.01) We discussed his weight at length. He perhaps would be a candidate for bariatric surgery because ofhis significant obesity with multiple comorbidities. Discussed no one does the surgery local. I didoffer to refer him [facility]. At this point he wants to put that on the back burner. He has back pain surgery coming up as above. We also discussed diet at length.I told him that in general I am in favor of what ever helps him lose weight. Discussed the packageddiets are effective because they simply control caloric intake but they can be expensive. We also discussed the NOOM diet which he had questions about and I again told him I am in favor of what ever helps him lose weight. Jun,Encounter for long-term (current) use of medications (ICD-10 - Z79.899) Jun,Nausea (ICD-10 - R11.0) Jun,therMetoprolol material was publishedRTO 6 months preceded by fasting CBC, BMP, hepatic panel, lipid profile, hemoglobin A1c and sooner as needed. I repeated full lab panel because of his medical complexity. [employer] Other 01-13-2022 Evaluation note* Encounter Date Diagnosis Assessment Notes Treatment Notes Treatment Clinical Notes Jun, Acute non-recurrent sinusitis, unspecified location (ICD-10 - J01.90) [employer] Other 12-30-2021 Evaluation note* Encounter Date Diagnosis Assessment Notes Treatment Notes Treatment Clinical Notes May, Acute non-recurrent sinusitis, unspecified location (ICD-10 - J01.90) He does have chronic rhinitis, could have a seasonal allergy flare. However because he has 3 weeks of purulent nasal drainage, discussed also could be infectious. Bactrim DS as prescribed. Continue routine chronic rhinitis medications. May,Intermittent right lower quadrant abdominal pain (ICD-10 - [...] as long as he is using commonsense andavoiding painful exercises, it is okay to try. If he does not do well or if he decides he would like referral as above, call. May,OtherTrimethoprim material was publishedRTO as needed [employer] Other 11-12-2021 Evaluation note* Encounter Date Diagnosis Assessment Notes Treatment Notes Treatment Clinical Notes Apr, Chronic pain (ICD-10 - G89.29) [employer] Other 11-11-2021 Evaluation note* Encounter Date Diagnosis Assessment Notes Treatment Notes Treatment Clinical Notes Apr, Right inguinal pain (ICD-10 - R1 0.31) His exam is complicated by his obesity. We do consider right inguinal hernia but I do not feel 1. Discussed this also simply could be abdominal wall muscle strain or inguinal ligament strain. Becauseof his complexity and degree of pain, refer back to Dr. Arango for surgical consult. Worrisome symptoms or reason for emergency room discussed. Resting on his back, ice and/or heat as needed pain encouraged. Apr,eft lower quadrant pain (ICD-10 - R10.32) I will await Dr. Arango input about his right lower quadrant pain and his thoughts about his ongoing left inguinal pain. We did discuss we would consider sports medicine consult for his chronic left abdominal pain or pain management referral to consider a nerve block. We will put that on the back burner pending Dr. Arango thoughts. Apr,Other chronic pain (ICD-10 - G89.29) Apr,umbar back pain with radiculopathy affecting left lower extremity (ICD-10 - M54.16) [facility] back [facility] and pending follow-up visit Apr,bdominal mass, right lower quadrant (ICD-10 - R19.03) I think this is most likely asymmetric significant fat pannus right lower abdomen. We consider lipoma. He did have CT scan last May. We will await Dr. Arango input. Apr,Other RTO pending above and sooner as needed Please send today's EMR note to Dr. Arango. [employer] Other 08-19-2021 History of Present illness Narrative* Parth Nunes, dna analyst - 02/14/2021 12:00 PM EDT Radiology Service [...] PERIPHERAL IV DATA: Not applicable SIGNED BY: WILL Joyner February 14, 2021 11:44 AM [facility] History of Present illness Narrative* Patient is [...] 4. 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 Impression dictated by: Eagle Prince M.D.05/03/2022 3:05 PM Dictation Location: [place] [address] Assessment/Plan (1) Atypical migraine: Assessment/Problem Details: HPI: [...] generally oriented. Attention normal. Speech is fluent an dnondysarthric. Pupils are equal and reactive Ocular motility [...] sensation decreased in distal left lower extremity moreso than right distal lower extremity. No limb ataxia. ASSESSMENT: Fluctuating leg weakness most likely related to leg symptoms that stem from chronic lumbar stenosisand radiculopathy. He had fluctuating presyncopal sensations with [...] <Electronically signed by Ortega Haskins DO> 05/04/22 6498 [facility] Work Phone: Consult note Author Xavi Smith [facility] May 07, 2022 12:29pmNote Date/TimeNovember 2021 2:[place] [id number] Pain Management Consult Note Signed Patient: Mary Jimenez MR#: [id number] : 1960 Acct:[id number] Age/Sex: 61 / M Adm Date: 2 Loc: 4N Room: [address] [place] [address] Type: DIS INOo Attending Dr: Cathy Zavala [...] pain management and currently sees a [place] in [place]. Pain management was consultedto evaluate for interventional [...] mg PO DAILY 03/30/17 [History Confirmed 05/03/22] fznclyhl-kzkjpjqd-pjmua acid 400 mcg-vit K 20 mcg-lycop 300 [...] and he had it today. This prohibits interventionaltreatment for 7 days. Based on his MRI [...] signed by Xavi Smith MD> 05/07/22 1229 [facility] Work Phone: Discharge summary Author Cathy Zavala [facility] May 06, 2022 3:14pmNote Date/TimeMay 06, 2022 3:05pmLisa [place] [id number] Discharge Summary Signed Patient: Mary Jimenez MR#: [id number] : 1960 Acct:[id number] Age/Sex: 61 / M Adm Date: 2 Loc: Room: [address] [place] [address]: Cathy Zavala MD Copies to: DO Cathy Bhatia MD~ Providers Date of Discharge: 05/06/22 Discharging Provider: Cathy Zavala Primary Care Provider: Jose Valdovinos Consults: 05/03/22 18:54 Consult to Neurology Routine Consult to Occupational Therapy Routine Consult to Physical Therapy Routine 05/06/22 09:41 Consult to Pain Management Routine 05/06/22 09:59 RICHAR [[facility] Transition of Care Referral] Routine Discharge Diagnosis [...] he was scheduled to get MRI at [facility]. Patient not able to get MRI [...] signs of active bleeding. Will recommend repeat CBCin 4 days and if remains anemic he [...] fluticasone propionate [Flonase Allergy Relief] 50 mcg/actuation [place],Suspension 2 spray INTRANASAL DAILY duloxetine [Cymbalta] 60 [...] pm (With Melia EUBANKS and Dr. Rodriges) [facility] Transitions of Care [Outside] - 05/07/22 9:45 am (You have been referred to the [facility] for Coordinated Care ([facility]) for a post discharge education visit because you have one or more conditions that have been associated with a moderate to high risk of complications that may increase the likelihood that you will be readmitted to the hospital again in the near future. Phone: .? Address:? [address] [place] [address], [facility] F.? NOTE:? PLEASE BRING ALL OF YOUR MEDICATION BOTTLES WITH YOU TO THE APPOINTMENT WELL YOUR DISCHARGE INSTRUCTIONS.) Jose Valdovinos DO [Primary Care Provider] - 05/27/22 1:15 pm (You have been scheduled for a follow upappointment for the following date and time, please call to reschedule if needed. This is the next soonest available appointment, they asked you please call if you need anything before then and the office will call you if anything opens up before then.) Documented By: Cathy Zavala MD 05/06/22 150 Signed By: <Electronically signed by Cathy Zavala MD> 05/06/22 0303 [facility] Work Phone: Evaluation + Plan note Future Appointments Appointment Date:09/25/2021 07:50:00 AM Scheduled Provider:Eagle MCKEE MD Location:Extended Care Appointment Type:[facility] [place] Evaluation + Plan note Future Appointments Appointment Date:05/28/2022 08:00:00 AM Scheduled [facility] Appointment Date:05/28/2022 09:00:00 AM Scheduled Provider: [facility] ([facility] Future Scheduled Tests Radiology* MRI Spine Cervical w/o Contrast 05/28/22 * MRI Spine Lumbar w/ + w/o Contrast 05/28/22 [facility] + Plan note Future Appointments Appointment Date:05/28/2022 08:00:00 AM Scheduled Provider: Location:.MRI Appointment Type:MRI Spine (FT) Appointment Date:05/28/2022 09:00:00 AM Scheduled Provider: [facility] ([facility]) Future Scheduled Tests Radiology* MRI Spine Cervical w/ + w/o Contrast 05/28/22 * MRI Spine Cervical w/o Contrast 05/28/22 * MRI Spine Lumbar w/ + w/o Contrast 05/28/22 [facility] note* Diagnosis Spondylolisthesis of lumbar region- Primary Acquired spondylolisthesis documented in this [facility] [place] [facility]* Diagnosis S/P lumbar fusion- Primary Arthrodesis status documented in this encounter [facility] [place] [facility]* Diagnosis Postoperative infection, unspecified type, subsequent encounter- Primary S/P lumbar fusion Arthrodesis status documented in this encounter [facility] [place] [facility]* Diagnosis S/P lumbar fusion- Primary Arthrodesis status [facility] [place] [facility]* Diagnosis Spondylolisthesis of lumbar region- Primary Acquired spondylolisthesis documented [facility] this [facility] [place] [facility]* Diagnosis Chronic bilateral low back pain without sciatica- Primary documented in this encounter [facility] [place] [facility]* Diagnosis Spondylolisthesis of lumbar region- Primary Acquired spondylolisthesis Pre-op testing Preoperative examination, unspecified Spondylolisthesis of lumbar region Acquired spondylolisthesis documented in this encounter [facility] note* Diagnosis BMI 37.0-37.9, adult- Primary [...] region Acquired spondylolisthesis documented in this encounter [facility] [place] [facility]* Diagnosis Pre-op testing- Primary Preoperative examination, unspecified S/P lumbar fusion Arthrodesis status Spondylolisthesis of lumbar region Acquired spondylolisthesis documented in this encounter [facility] note* Diagnosis Spondylolisthesis of lumbar region Acquired spondylolisthesis Lumbar radiculopathy Thoracic or lumbosacral neuritis or radiculitis, unspecified documented in this encounter [facility] note* Diagnosis Radiculopathy, lumbar region Thoracic or lumbosacral neuritis or radiculitis, unspecified documented in this encounter [facility] noteNo [facility] Other Evaluation note* Diagnosis Alteration in skin integrity related to surgical incision- Primary Wound healing, delayed Open wound(s) (multiple) of unspecified site(s), complicated Keloid Keloid scar documented in this encounter [facility] note* Diagnosis Medication monitoring encounter- Primary Encounter for therapeutic drug monitoring documented in this encounter [facility] note* Diagnosis Spondylolisthesis, lumbar region- Primary documented in this encounter [facility] note* Diagnosis Radiculopathy, lumbar region Thoracic or lumbosacral neuritis or radiculitis, unspecified documented in this encounter [facility] note* Diagnosis Spondylolisthesis of lumbar region- Primary Acquired spondylolisthesis documented in this encounter [facility] note* Diagnosis Lumbar radiculopathy- Primary Thoracic or lumbosacral neuritis or radiculitis, unspecified documented in this encounter [facility] note* Diagnosis Lumbar pseudoarthrosis- Primary Nonunion of fracture documented in this encounter [facility] [place] noteNo assessment information availableHigh[facility] Work Phone: Evaluation note* Diagnosis Acute bilateral low back pain with left-sided sciatica- Primary Lumbar pseudoarthrosis Nonunion of fracture documented in this encounter [facility] note* Diagnosis Lumbar pseudoarthrosis Nonunion of fracture documented in this encounter [facility] note* Diagnosis Lumbar pseudoarthrosis Nonunion of fracture documented in this encounter [facility] note* Diagnosis Spinal stenosis of lumbar region with neurogenic claudication- Primary Spinal stenosis, lumbar region, with neurogenic claudication documented in this encounter [facility] [place] [facility]* Diagnosis Spinal stenosis of lumbar region with neurogenic claudication- Primary Spinal stenosis, lumbar region, with neurogenic claudication documented in this encounter [facility] note* Diagnosis Lumbar radiculopathy- Primary Thoracic or lumbosacral neuritis or radiculitis, unspecified documented in this encounter [facility] note* Diagnosis Lumbar radiculopathy- Primary Thoracic or lumbosacral neuritis or radiculitis, unspecified documented in this encounter [facility] note* Diagnosis Putti's syndrome- Primary Thoracic or lumbosacral neuritis or radiculitis, unspecified documented in this encounter [facility] note* Diagnosis Lumbar pseudoarthrosis- Primary Nonunion of fracture documented in this encounter [facility] note* Diagnosis Onset Date Resolution Status Chronic kidney disease, stage 3 acuteDizzinessacuteElevated blood pressure reading with diagnosis of hypertensionacuteObstructive sleep apneaacuteRepeated fallsacuteSlurred speech acute [facility] Work Phone: Evaluation note* Diagnosis Onset Date Resolution Status Atypical migraine acuteChronic kidney disease, stage 3acuteDizzinessacuteElevated blood pressure reading with diagnosis of hypertensionacuteLumbar radicular painacuteObstructive sleep apneaacutePostlaminectomy syndromeacuteRepeated fallsacuteSepsisacute Slurred speechUniversity [facility] Work Phone: Evaluation note* Diagnosis Lumbar radiculopathy- Primary Thoracic or lumbosacral neuritis or radiculitis, unspecified [facility]* Diagnosis Onset Date Resolution Status Diarrhea acute [facility] Work Phone: Evaluation note* Diagnosis Angina pectoris (CMS/HCC)- Primary Other and unspecified angina pectoris Shortness of breath on exertion Shortness of breath Essential hypertension Unspecified essential hypertension Mixed hyperlipidemia Morbid obesity (CMS/HCC) Morbid obesity Cerebrovascular accident (CVA), unspecified mechanism (CMS/HCC) Never smoked any substance documented in this encounter [facility] Work Phone: Evaluation note* Diagnosis Onset Date Resolution Status Diarrhea acuteDiarrheaacuteDiverticulosisacuteFatty liveracute [facility] Work Phone: Evaluation note* Diagnosis Chronic [...] apnea, unspecified type [facility] encounter [facility]* Diagnosis 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 Other testicular hypofunction documented [facility]* Diagnosis Secondary male hypogonadism Other testicular hypofunction documented [facility]* Diagnosis Chronic migraine without aura with status migrainosus, not intractable (CMS/HCC) Lumbar radiculopathy Thoracic or lumbosacral neuritis or radiculitis, unspecified Cervical radiculopathy Brachial neuritis or radiculitis nos Degenerative disc disease, cervical Carpal tunnel syndrome, bilateral upper limbs History of stroke Transient ischemic attack (TIA), and cerebral infarction without residual deficits Restless leg syndrome Restless legs syndrome (RLS) Hyper reflexia Abnormal reflex [facility]* Diagnosis Hyper reflexia- Primary Abnormal reflex [facility]* Diagnosis Hyper reflexia Abnormal reflex [facility]* Diagnosis Radiculopathy, lumbosacral region- Primary Thoracic or lumbosacral neuritis or radiculitis, unspecified [facility]* Diagnosis Lumbar radiculopathy- Primary Thoracic or lumbosacral neuritis or radiculitis, unspecified History of stroke Transient ischemic attack (TIA), and cerebral infarction without residual deficits Chronic migraine without aura with status migrainosus, not intractable (CMS/HCC) Chronic daily headache Headache Obstructive sleep apnea Obstructive sleep apnea (adult) (pediatric) Restless leg syndrome Restless legs syndrome (RLS) Degenerative disc disease, lumbar Radiculopathy, lumbosacral region Thoracic or lumbosacral neuritis or radiculitis, unspecified Cervical radiculopathy Brachial neuritis or radiculitis nos Degenerative disc disease, cervical Carpal tunnel syndrome, bilateral upper limbs [facility]* Diagnosis Lumbar radiculopathy- Primary Thoracic or lumbosacral neuritis or radiculitis, unspecified Cervical radiculopathy Brachial neuritis or radiculitis nos Degenerative disc disease, cervical Carpal tunnel syndrome, bilateral upper limbs [facility]* Diagnosis Radiculopathy, lumbosacral region Thoracic or lumbosacral neuritis or radiculitis, unspecified Lumbar radiculopathy Thoracic or lumbosacral neuritis or radiculitis, unspecified [facility]* Diagnosis Chronic migraine without aura with status migrainosus, not intractable (CMS/HCC) - Primary [facility]* Diagnosis Pre-op testing Preoperative examination, [...] or radiculitis nos [facility]* Diagnosis Shortness of breath on exertion- Primary Shortness of breath Essential hypertension Unspecified essential hypertension Mixed hyperlipidemia Morbid obesity (Multi) Morbid obesity Cerebrovascular accident (CVA), unspecified mechanism (Multi) Angina pectoris Other and unspecified angina pectoris BMI 39.0-39.9,adult Never smoked any substance documented in this encounter [facility] Work Phone: Evaluation note* Diagnosis Pre-op testing [...] or radiculitis, unspecified documented in this encounter [facility] [place] [facility]* Diagnosis Chronic migraine without aura without status migrainosus, not intractable (CMS/HCC)- Primary [facility] Diagnosis Pre-op testing Preoperative examination, [...] or radiculitis, unspecified documented in this encounter [facility] [place] [facility]* Diagnosis Pre-op testing Preoperative examination, unspecified [...] or radiculitis nos [facility]* Diagnosis Secondary male hypogonadism Other testicular hypofunction documented [facility]* Diagnosis Neck pain- Primary Cervicalgia Myalgia Unspecified myalgia and myositis documented in this [facility]* Diagnosis Pre-op testing Preoperative [...] or radiculitis, unspecified documented in this encounter [facility] [place] [facility]* Diagnosis Secondary male hypogonadism Other testicular hypofunction [facility] [place] [facility]* Diagnosis Pre-op testing Preoperative examination, unspecified [...] or radiculitis, unspecified documented in this encounter [facility] note* Diagnosis Pre-op testing Preoperative examination, unspecified [...] Nonunion of fracture documented in this encounter [facility] [place] [facility]* Diagnosis Angina pectoris- Primary Other and unspecified angina pectoris Essential hypertension Unspecified essential hypertension Shortness of breath on exertion Shortness of breath Mixed hyperlipidemia Morbid obesity (Multi) Morbid obesity BMI 39.0-39.9,adult Cerebrovascular accident (CVA), unspecified mechanism (Multi) Never smoked any substance documented in this encounter [facility] Work Phone: Evaluation note* Diagnosis Pre-op testing [...] unspecified obesity type Sleep apnea, unspecified type Spondylosis- Primary Spondylosis of unspecified site without mention of myelopathy Chronic bilateral low back pain with bilateral sciatica documented in this encounter [facility] [place] [facility]* Diagnosis 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 Other testicular hypofunction Sweating disease Sweating fever Encounter for dietary consultation Class 2 severe obesity due to excess calories with serious comorbidity and body mass index (BMI) of38.0 to 38.9 in adult ([facility]) Right shoulder pain, unspecified chronicity- Primary [facility]* Diagnosis Right shoulder pain, unspecified chronicity- Primary documented [facility] encounter [facility]* Diagnosis Pre-op testing Preoperative examination, [...] Nonunion of fracture documented [facility] this encounter [facility] Author Cathy Zavala [facility] May 03, 2022 6:54pmNote Date/TimeNov2021 6:54pm[place] [address] Hospitalist H&P Signed Patient: Mary Jimenez MR#: [id number] : 1960 Acct:[id number] Age/Sex: 61 / M Adm Date: 2 Loc: 4N Room: 5F9283-2 Type: ADM IN Attending Dr: Cathy Zavala MD Copies to: DO Cathy Bhatia MD~ HPI DATE OF EXAMINATION: 05/03/22 CHIEF COMPLAINT: Dizziness with slurred speech. 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 Patient presented to ER with complaint of [...] in the beginning of the year at [facility]. He was seen in the emergency room in August and was transferred to the [facility] from the emergency room due to concern for infection and had positive blood cultures. Patient cannot recall the details but mentioned after getting discharged from the hospital he stayed in [facility] facility for [facility]. He has chronic back pain with left leg sciatica after surgery he developed right leg pain. He has chronic numbness in the right foot. He follows with pain management and mentioned he has been taken off hydrocodone and switch to acetaminophen and ibuprofen. It appears he also has history of arthritis and is scheduled for MR Iof his right knee on Thursday. His labs did not show any significant abnormality and he will be keptunder observation. Review of Systems Review of Systems Review of systems: 12 point review of system is unremarkable other than mentioned in history of presenting illness [facility] Vaccinated for COVID-19?: Yes Medical History (Updated [...] mg PO DAILY 03/30/17 [History Confirmed 05/03/22] aoihiuoe-qhfeufsf-hpoqo acid 400 mcg-vit K 20 mcg-lycop 300 [...] % (Auto) 17.2 % (.) 05/03/22 14:46 [place] % (Auto) 9.5 % (.) 05/03/22 14:46 Eos % (Auto) 4.5 % (.) 05/03/22 14:46 Baso % (Auto) 1.1 % (.) 05/03/22 14:46 Neut # (Auto) 5.0 x10E3/uL (1.8-7.7) 05/03/22 14:46 Lymph # (Auto) 1.3 x10E3/uL (1.00-4.8) 05/03/22 14:46 [place] # (Auto) 0.7 x10E3/uL (0.0-0.8) 05/03/22 14:46 [...] pH 6.0 (5.0-9.0) 05/03/22 15:55 Ur Specific [place] 1.015 (1.001-1.030) 05/03/22 15:55 Urine Protein Negative [...] precaution. Documented By: Cathy Zavala MD 05/03/22 7083 Signed By: <Electronically signed by Cathy Zavala MD> 05/03/22 684 [facility] Work Phone: History general Narrative - Reported* Type Description Date Medical History Essential HTN-1990 Medical Historychronic painMedical HistoryMixed hyperlipedemia-2000Medical HistoryconstipationMedical HistoryinsomniaMedical Historykidney stonesMedical HistoryStroke-2013Medical HistoryChronic rhinitisMedical HistoryObstructive sleep apnea severe CPAP Dr. MeridaMedical HistoryAcid Peptic diseaseMedical HistoryRecurring cold soresMedical HistoryImpaired Glucose Intolerance-2010 Medical HistoryGAD/panic disorderMedical HistoryOsteoarthritis left knee (xray) 2016Medical HistoryLinchen simplex chronicusSurgical Historyright ankle repair 1980Surgical Historyright knee surgery [id number] Historylumbar surgery x /2011Surgical Historyback surgery irizarry L4-5 herniated [id number] Surgical HistoryLithotripsy Pehw3730Rkzxvmqm Historycolonoscopy, diverticulitis, hemmorhoid Esparza, EGD - erosive esophagitis, hiatal hernia NtNuesjuh8199Xhrfitci HistoryL4-5 decompressive laminectomy/fusion [id number] Surgical HistoryLeft knee arthroscopy- [id number] HistoryRight shoulder bicept tendon repair-02/14/2016Surgical HistoryL KNEE SURGERY DR ZHENG urgical HistoryEGD/COLONOSCOPY/PolypectomyTubulovillous adenome w/ focal high grade epithelial dysplasia, diverticulosis, Spastic colon11/2015Surgical HistoryEGD, bile reflux, McCormickAugust 2017Surgical Historycolonoscopy, diverticulosis, McCormickAugust 2017Surgical HistoryRTKA-Dr Zheng06/06/19Surgical HistoryI&D RTKA with poly exchange synovectomy- Dr Zheng07/19/19Hospitalization Historykidney [id number] HistoryCardiac cath (neg) [id number] Hospitalization HistoryMyoview stress test (neg) [facility]2007Hospitalization HistoryLexiscan excercise stress test (neg) [facility]07/2010Hospitalization History Acute CVA [id number] HistoryAcute cephalgia11/2013Hospitalization HistoryLexiscan stress test (neg) [facility]06/2014 [employer] Other History general Narrative - Reported* Type Description Date Medical History Essential HTN-1990 Medical Historychronic painMedical HistoryMixed hyperlipedemia-2000Medical HistoryconstipationMedical HistoryinsomniaMedical Historykidney stonesMedical HistoryStroke-2013Medical HistoryChronic rhinitisMedical HistoryObstructive sleep apnea severe CPAP Dr. MeridaMedical HistoryAcid Peptic diseaseMedical HistoryRecurring cold soresMedical HistoryImpaired Glucose Intolerance-2010 Medical HistoryGAD/panic disorderMedical HistoryOsteoarthritis left knee (xray) 2016Medical HistoryLinchen simplex chronicusSurgical Historyright ankle repair 1980Surgical Historyright knee surgery Ajgpnl0028Pikdfabs Historylumbar surgery x /2011Surgical Historyback surgery irizarry L4-5 herniated uxqv5233 Surgical HistoryLithotripsy Fwjg5674Owwnuynk Historycolonoscopy, diverticulitis, hemmorhoid Esparza, EGD - erosive esophagitis, hiatal hernia AgGywukgs9345Dfhyxjxv HistoryL4-5 decompressive laminectomy/fusion Weqnj2220 Surgical HistoryLeft knee arthroscopy- Fszbdy7179Pqumhkht HistoryRight shoulder bicept tendon repair-02/14/2016Surgical HistoryL KNEE SURGERY DR ZHENG urgical HistoryEGD/COLONOSCOPY/PolypectomyTubulovillous adenome w/ focal high grade epithelial dysplasia, diverticulosis, Spastic colon11/2015Surgical HistoryEGD, bile reflux, McCormickAugust 2017Surgical Historycolonoscopy, diverticulosis, McCormickAugust 2017Surgical HistoryRTKA-Dr Zheng06/06/19Surgical HistoryI&D RTKA with poly exchange synovectomy- Dr Zheng07/19/19urgical History Lumbar fusion CCFFebruary urgical HistoryRevision of lumbar fusion, incision and drainage infection [facility]March urgical HistoryRevision lumbar fusion, L4 to pelvis fusion [facility]July 2021Hospitalization Historykidney oqwxys5806 Hospitalization HistoryCardiac cath (neg) AIYC0936Paouvssulrctnwl HistoryMyoview stress test (neg) [facility]10/2007Hospitalization HistoryLexiscan excercise stress test (neg) [facility]07/2010Hospitalization HistoryAcute CVA IOBG7305Bponvullvxwjmwq HistoryAcute cephalgia11/2013Hospitalization HistoryLexiscan stress test (neg) [facility]/2014 [employer] Other History general Narrative - Reported* Type Description Date Medical History Essential HTN-1990 Medical Historychronic painMedical HistoryMixed hyperlipedemia-2000Medical HistoryconstipationMedical HistoryinsomniaMedical Historykidney stonesMedical HistoryStroke-2013Medical HistoryChronic rhinitisMedical HistoryObstructive sleep apnea severe CPAP Dr. MeridaMedical HistoryAcid Peptic diseaseMedical HistoryRecurring cold soresMedical HistoryImpaired Glucose Intolerance-2010 Medical HistoryGAD/panic disorderMedical HistoryOsteoarthritis left knee (xray) 2015Medical HistoryLinchen simplex chronicusSurgical Historyright ankle repair 1980Surgical Historyright knee surgery Jrkogc6231Fxeuwnpz Historylumbar surgery x Surgical Historyback surgery irizarry L4-5 herniated mwpp5756 Surgical HistoryLithotripsy Yrgm8667Vcjwvsls Historycolonoscopy, diverticulitis, hemmorhoid Esparza, EGD - erosive esophagitis, hiatal hernia ViZqobvxq2996Cefzdxvw HistoryL4-5 decompressive laminectomy/fusion Ufgsf6941 Surgical HistoryLeft knee arthroscopy- Ieyqbv1096Aqwellqr HistoryRight shoulder bicept tendon repair-02/14/2016Surgical HistoryL KNEE SURGERY DR ZHENG urgical HistoryEGD/COLONOSCOPY/PolypectomyTubulovillous adenome w/ focal high grade epithelial dysplasia, diverticulosis, Spastic colon11/2015Surgical HistoryEGD, bile reflux, McCormickAugust 2017Surgical Historycolonoscopy, diverticulosis, McCormickAugust 2017Surgical HistoryRTKA-Dr Zheng06/06/19Surgical HistoryI&D RTKA with poly exchange synovectomy- Dr Zheng07/19/19urgical History Lumbar fusion CCFFebruary urgical HistoryRevision of lumbar fusion, incision and drainage infection [facility]March urgical HistoryRevision lumbar fusion, L4 to pelvis fusion [facility]July 2021Hospitalization Historykidney bjdpkw6550 Hospitalization HistoryCardiac cath (neg) PYXP2275Qyovxfibuixoxei HistoryMyoview stress test (neg) [facility]/2007Hospitalization HistoryLexiscan excercise stress test (neg) [facility]07/2010Hospitalization HistoryAcute CVA FWMM9781Udifnzlkbnpunjt HistoryAcute cephalgia11/2013Hospitalization HistoryLexiscan stress test (neg) [facility]/2014Hospitalization History1) Postlaminectomy syndrome: (2) Atypical migraine: (3) Obstructive sleep apnea: (4) Dizziness: (5)Repeated falls: (6) Slurred speech: (7) Chronic kidney disease, stage 3: (8) Lumbar radicular pain: Fi05/03/2022 [employer] Other History general Narrative - Reported* Type Description Date Medical History Essential HTN-1990 Medical Historychronic painMedical HistoryMixed hyperlipedemia-2000Medical HistoryconstipationMedical HistoryinsomniaMedical Historykidney stonesMedical HistoryStroke-2013Medical HistoryChronic rhinitisMedical HistoryObstructive sleep apnea severe CPAP Dr. MeridaMedical HistoryAcid Peptic diseaseMedical HistoryRecurring cold soresMedical HistoryImpaired Glucose Intolerance-2010 Medical HistoryGAD/panic disorderMedical HistoryOsteoarthritis left knee (xray) 2015Medical HistoryLinchen simplex chronicusMedical HistoryGERDMedical History AnxietyMedical HistoryHyperlipidemiaMedical HistoryMigrainesMedical HistoryHeart diseaseMedical HistoryLoud snorerMedical HistoryDay time fatigueMedical History Arthritis of right kneeSurgical Historyright ankle indyae0309Hctzpngs History right knee surgery Hplvey1589Ssyzdkrw Historylumbar surgery x Surgical Historyback surgery irizarry L4-5 herniated hfmm3517Whgxuwxr HistoryLithotripsy Bmyp4240Aeraubqb Historycolonoscopy, diverticulitis, hemmorhoid Esparza, EGD - erosive esophagitis, hiatal hernia LrMrswrvy2466Whzofidi HistoryL4-5 decompressive laminectomy/fusion Yzbqs7379Wwwksllw HistoryLeft knee arthroscopy- Lejtop7094Sfigfofp HistoryRight shoulder bicept tendon repair-02/14/[address] ZHENGurgical History EGD/COLONOSCOPY/PolypectomyTubulovillous adenome w/ focal high grade epithelial dysplasia, diverticulosis, Spastic colon11/2015Surgical HistoryEGD, bile reflux, McCormickAugust 2016Surgical Historycolonoscopy, diverticulosis, McCormickAugust 2017Surgical HistoryRTKA-Dr Zheng06/06/19Surgical HistoryI&D RTKA with poly exchange synovectomy- Dr Zheng07/19/19urgical HistoryLumbar fusion CCFFebruary urgical HistoryRevision of lumbar fusion, incision and drainage infection [facility]March urgical HistoryRevision lumbar fusion, L4 to pelvis fusion CCFJuly urgical HistoryCarpal tunnel left uwwl4836Wpkyjqax HistoryRight knee arthroscopy Dr. ZhengQgbtg8231Cyyjuuqdwzqarif Historykidney ybvgio8971Atfhppxvmokiacb HistoryCardiac cath (neg) ESSS4880Icjvhwvdpovayhm HistoryMyoview stress test (neg) [facility]10/2007Hospitalization HistoryLexiscan excercise stress test (neg) [facility] 07/2010Hospitalization HistoryAcute CVA XIBL4167Qkxnjvppwowssov HistoryAcute cephalgia11/2013Hospitalization HistoryLexiscan stress test (neg) NO[facility]06/2014 Hospitalization History1) Postlaminectomy syndrome: (2) Atypical migraine: (3) Obstructive sleep apnea: (4) Dizziness: (5)Repeated falls: (6) Slurred speech: (7) Chronic kidney disease, stage 3: (8) Lumbar radicular pain:05/03/2022 [employer] Other History general Narrative - Reported* Type Description Date Medical History Essential HTN-1990 Medical Historychronic painMedical HistoryMixed hyperlipedemia-2000Medical HistoryconstipationMedical HistoryinsomniaMedical Historykidney stonesMedical HistoryStroke-2013Medical HistoryChronic rhinitisMedical HistoryObstructive sleep apnea severe CPAP Dr. MeridaMedical HistoryAcid Peptic diseaseMedical HistoryRecurring cold soresMedical HistoryImpaired Glucose Intolerance-2010 Medical HistoryGAD/panic disorderMedical HistoryOsteoarthritis left knee (xray) 2016Medical HistoryLinchen simplex chronicusMedical HistoryGERDMedical History AnxietyMedical HistoryHyperlipidemiaMedical HistoryMigrainesMedical HistoryHeart diseaseMedical HistoryLoud snorerMedical HistoryDay time fatigueMedical History Arthritis of right kneeSurgical Historyright ankle hriuqn1480Zrsgwbmh History right knee surgery Nodawu7785Ngpvgepb [place] [address]/2011Surgical Historyback surgery irizarry L4-5 herniated zgsh7619Fcgutkee HistoryLithotripsy Vgap7942Nwxjeajr Historycolonoscopy, diverticulitis, hemmorhoid Esparza, EGD - erosive esophagitis, hiatal hernia DiSzfhuum3219Nddddbjq HistoryL4-5 decompressive laminectomy/fusion Vpngk7070Nwlmoxfd HistoryLeft knee arthroscopy- Wormoc6226Kftosbqi HistoryRight shoulder bicept tendon repair-02/14/[address] ZHENGurgical History EGD/COLONOSCOPY/PolypectomyTubulovillous adenome w/ focal high grade epithelial dysplasia, diverticulosis, Spastic colon11/2015Surgical HistoryEGD, bile reflux, McCormickAugust 2017Surgical Historycolonoscopy, diverticulosis, McCormickAugust 2017Surgical HistoryRTKA-Dr Zheng06/06/19Surgical HistoryI&D RTKA with poly exchange synovectomy- Dr Zheng07/19/19urgical HistoryLumbar fusion CCFFebruary urgical HistoryRevision of lumbar fusion, incision and drainage infection CCFMarch urgical HistoryRevision lumbar fusion, L4 to pelvis fusion CCFJuly urgical HistoryCarpal tunnel left fuiq3360Cuzrgbmo HistoryRight knee arthroscopy Dr. ZhengZvfzo9730Uuedvrtvapvjqjs Historykidney ebdbqe5223Yggyptogvlcgzsg HistoryCardiac cath (neg) SNYP9727Bcecqjrmvdzjbit HistoryMyoview stress test (neg) [facility]10/2007Hospitalization HistoryLexiscan excercise stress test (neg) [facility] 07/2010Hospitalization HistoryAcute CVA FSJD3042Zsptaigxeupoqhe HistoryAcute cephalgia11/2013Hospitalization HistoryLexiscan stress test (neg) [facility]06/2014 Hospitalization History1) Postlaminectomy syndrome: (2) Atypical migraine: (3) Obstructive sleep apnea: (4) Dizziness: (5)Repeated falls: (6) Slurred speech: (7) Chronic kidney disease, stage 3: (8) Lumbar radicular pain:Fi05/03/2022 Hospitalization HistoryER for cellulitis left arm03. [employer] Other History of Present illness Narrative* Since [...] continue Plavix and stop Plavix for now [facility]-Dmitriy 250 DO Work Phone: Hospital course Narrative No data available for this section [facility] Discharge instructions No data [...] any problems arise before your appointment. [ ][facility] Work Phone: Hospital Discharge instructions Additional Instructions DISCHARGE INSTRUCTIONS FOR CARDIAC VASCULAR SPECIALISTS PROCEDURE: Heart Cath The following instructions have [...] cold, numb, blue or white, call the field engineer immediately. 4. ACTIVITY: You are advised to [...] bottle, follow the instructions on the bottle. [facility] is not responsible for incorrect prescription information provided by the patient during their visit. Do not stop your medications without consulting your health care provider. Please take the list with you to your next doctor's appointment.[facility] Work Phone: Progress note No data available for this section [facility] Author Cathy Zavala [facility] May 04, 2022 4:15pmNote Date/TimeNov2021 4:11pmLom[place] [address] Hospitalist Progress Note Signed Patient: Mary Jimenez MR#: [id number] 2655 : 1960 Acct:[id number] Age/Sex: 61 / M Adm Date: 2 Loc: 4N Room: 6H5351-0 Type: ADM IN Attending Dr: Cathy Zavala MD Copies to: ~ Date of Service: 05/04/2022 Subjective Subjective Narrative: Patient complaining of right leg pain which is chronic and requesting to resume his [place]. He was not able to sleep well [...] Propionate 2 spray 05/04/22 15:30 Fluticasone Propionate Norwalk 120 Norwalk/16 Gm Bottle INTRANASAL 05/04/23 15:29 DAILY PRN [...] By: <Electronically signed by Cathy Zavala MD> 05/04/221614 [facility] Work Phone: Progress note Author Se Rodriges [facility] May 05, 2022 5:07pmNote Date/TimeNov2021 9:04[place] [id number] Neurology Progress Note Signed Patient: Mary Jimenez MR#: [id number] 2655 : 1960 Acct:[id number] Age/Sex: 61 / M Adm Date: 2 Loc: 4N Room: 4L5859-9 Type: ADM INOo Attending Dr: Cathy Zavala [...] compared to the left. CEREBELLAR EXAM: * Tgwwyy-gi-razs and alternating movements are intact and normal in bilateral upper extremities * Ubzj-vc-wttn and alternating movements are intact and normal [...] Recommendations OT Recommended Discharge Home with Home Health,[facility] Facility Location OT Recommended Services at 19/01 Supervision Discharge PT Recommendations PT Recommended Discharge Home with Home Health,[facility]pc Facility Location PT Recommended Services at Physical [...] July of this year on his lumbar [facility]at the [facility]. He had discectomy and fusion from L3 down to S1 in total. On physical examhe is hyperreflexic raising concern for a cervical [...] persistent. On examination he is not necessarily weakhowever he does become tremulous with strength testing [...] carotid ultrasound in July that did not revealocclusive disease 13. PT OT recommends home with home health versus SNF 14. MRI cervical spine pending 15. We will follow I personally saw this patient on the day of the encounter, reviewed the history,performed the maldonado elements of the exam, formulated the plan of care and confirmed the LUNCHROOM MOTHER note Patient is a 61-year-old male with multiple lumbar surgeries admitted to the hospital due to inability to ambulate secondary to pain. The patient has good strength on neurological exam. Cannot exclude a structural lesion in the lumbarspine contributing to intractable pain on ambulation. The patientwill require MRI scan and will require sedation. [...] <Electronically signed by MD Se Rodriges> 05/05/22 1701 [facility] Work Phone: Progress note Author Cathy Zavala [facility] May 05, 2022 1:17pmNote Date/TimeNov2021 1:12pmL[place]eta[place] [address] Hospitalist Progress Note Signed Patient: Mary Jimenez MR#: [id number] 2655 : 1960 Acct:[id number] Age/Sex: 61 / M Adm Date: 2 Loc: Room: [address] [place] [address] Type: ADM INOo Attending Dr: Cathy Zavala MD Copies to: ~ Date of Service: 05/05/2022 Subjective Subjective Narrative: Patient examined at bedside and continues to complain of back pain radiating to right lower and hasbeen having this pain since he got the [...] 05/04/22 14:00 05/05/22 10:05 Duloxetine 30 [address].Dr QUIJANO 05/04/23 13:59 30 mg TID YNES Administration Enoxaparin Sodium 40 mg 05/04/22 10:00 05/05/22 10:32 Enoxaparin 40 Mg/0.4 Ml Syringe SUBCUT 05/04/23 09:59 Not Given DAILY@10 YNES Finasteride 5 mg 05/04/22 09:00 05/05/22 11:15 Finasteride 5 Mg Tablet PO 05/04/23 08:59 5 mg DAILY YNES Administration Fluticasone Propionate 2 spray 05/04/22 15:30 05/04/22 17:38 Fluticasone Propionate Norwalk 120 Norwalk/16 Gm Bottle INTRANASAL 05/04/23 15:29 2 spray [...] signed by Cathy Zavala MD> 05/05/22 1317 [facility] Work Phone: Progress note Author Se Rodriges [facility] May 06, 2022 4:12pmNote Date/TimeMay 06, 2022 8:20[place] [address] Neurology Progress Note Signed Patient: Mary Jimenez MR#: [id number] 2655 : 1960 Acct:[id number] Age/Sex: 61 / M Adm Date: 2 Loc: Room: [address] [place] [address] Type: ADM INOo Attending Dr: Cathy Zavala MD Copies to: ~ Date of Service: 05/06/2022 Subjective Subjective Narrative: Persistent and severe back pain with radiation into bilateral lower extremities which is worse withload bearing. Review of Systems Cardiovascular Cardiovascular: Denies [...] compared to the left. CEREBELLAR EXAM: * Gbldzm-aw-xjcs and alternating movements are intact and normal in bilateral upper extremities * Kijj-ts-aqqa and alternating movements are intact and normal [...] Recommendations OT Recommended Discharge Home with Home Health,[facility] Facility Location OT Recommended Services at 19/01 Supervision Discharge PT Recommendations PT Recommended Discharge Home with Home Health,[facility] Facility Location PT Recommended Services at Physical [...] July of this year on his lumbar spineat the [facility]. He had discectomy and fusion from L3 down to S1 in total. On physical examhe is hyperreflexic raising concern for a cervical [...] carotid ultrasound in July that did not revealocclusive disease 13. PT OT recommends home with home health versus SNF 14. MRI cervical spine pending 15. Consult pain management 16. We will follow I personally saw this patient on the day of the encounter, reviewed the history,performed the maldonado elements of the exam, formulated the plan of care and confirmed the LUNCHROOM MOTHER note The patient is a 61-year-old male with multiple lumbar surgeries in the past andincreased difficulty ambulating in home due to intractable back pain and inability to bear weight. The patient was sentfor open MRI scanner at a 1.5 Megan scanner due to placement of bone stimulator. The patient could not tolerate the study due to body habitus. The patient has been evaluated by physical therapy and recommendations for either home health or fdc facility. The patient will need physical therapy upon discharge. The patient has pain management physician in [facility] which she can follow-up with or can see pain management at [facility]. The patient can attempt repeat MRI scan as an outpatient and a large bore MRI scanner. Code(s): G43.009 - Migraine without aura, not intractable, without status migrainosus Status: Acute (2) Sepsis: Code(s): A41.9 - Sepsis, unspecified organism Status: Acute Documented By: LYN Solis 0819 Signed By: <Electronically signed by LYN Clark> 05/06/22 0944 <Electronically signed by MD Se Rodriges> 05/06/22 1612 [facility] Work Phone: Progress note Author Cathy Zavala [facility] May 06, 2022 2:21pmNote Date/TimeNovember 2021 2:21pmL[place] [address] Hospitalist Progress Note Signed Patient: Mary Jimenez MR#: [id number] 2655 : 1960 Acct:[id number] Age/Sex: 61 / M Adm Date: 2 Loc: 4N Room: 6U9791-9 Type: ADM INOo Attending Dr: Cathy Zavala MD Copies to: ~ Date of Service: 05/06/2022 Subjective Subjective Narrative: Patient examined at bedside with no overnight event. He has been able to ambulate with physical therapy but continues to complain of back pain radiating to right lower extremity. [facility] [...] spray 05/04/22 15:30 05/04/22 17:38 Fluticasone Propionate Norwalk 120 Norwalk/16 Gm Bottle INTRANASAL 05/04/23 15:29 2 spray [...] signed by Cathy Zavala MD> 05/06/22 1421 [facility] Work Phone: Reason for referral (narrative)* Diagnostic Procedure Only (Routine) - ClosedSpecialtyDiagnoses / ProceduresReferred By Contact Referred To ContactXR IMAGING Diagnoses Radiculopathy, lumbar region Procedures XR LUMBAR LIMITED 2V AP/LAT RADEX SPINE LUMBOSACRAL 2/[place] [address] [place] [address] Xr Imaging Referral IDStatusReasonStlithopolis DateExpiration DateVisits RequestedVisits [id number] Auto-Generated Referral [facility] for referral (narrative)* Diagnostic Procedure Only (Routine) - Pending ReviewSpecialtyDiagnoses / ProceduresReferred By Contact Referred To ContactXR IMAGING Diagnoses Lumbar radiculopathy Procedures XR LUMBAR LIMITED 2V AP/LAT RADEX SPINE LUMBOSACRAL 2/[place] [address] [place] [address] Xr Imaging Referral IDStatusReasonStlithopolis DateExpiration DateVisits RequestedVisits [id number] Review Auto-Generated Referral [facility] for referral (narrative)* Reason OBESITY Diagnosis 1 Obesity (E66.9) Referral Organization [facility] Bryan Izaguirre Referring Provider First Name Jose Referring Provider Last Name Bonifacio Referring Provider Specialty Family Prac shlomo Referred Organization [facility] Referred Provider Rafael Holbrook Referred Address [address] [place] [id number] Referred Provider Specialty Internal Med icine Referral Priority Routine [facility] [employer] Other [facility] for referral (narrative)* Consultation (Routine) - AuthorizedSpecialtyDiagnoses / ProceduresReferred By Contact Referred To ContactCardiology Diagnoses Essential hypertension Procedures Follow Up In Cardiology Danisha Bran MD [address] [facility] [address], [address] [address] Danisha Bran MD [facility] [facility], [address] [place] [address] Referral IDStatusReasonStart DateExpiration DateVisits RequestedVisits [id number]/1/20243/ [facility] Work Phone: Reason for referral (narrative)No reason for referral information availableMercy Memorial Hospital Work Phone: Reason for visit Narrative* Diagnostic Procedure Only (Routine) - ClosedSpecialtyDiagnoses / ProceduresReferred By ContactReferred To ContactXR IMAGING Diagnoses Radiculopathy, lumbar region Procedures XR LUMBAR LIMITED 2V AP/LAT RADEX SPINE LUMBOSACRAL 2/[place] [address] [place] [address] Xr Imaging Referral IDStatusReasonStart DateExpiration DateVisits RequestedVisits [id number] Auto-Generated Referral / [facility] HospitalReason for visit NarrativeSINUS INFECTION, Pharmacy: [facility] l[facility], Pt states he's had sinus congestion for a week now. Sx have progressed to coughing/ congestion. Pt used OTC Benadryl w/ no relief. Denies taking an at home covid test. [facility] Other Reason for visit Narrative* MRI/CT (Routine) - Closed SpecialtyDiagnoses / ProceduresReferred By ContactReferred To ContactCT IMAGING Diagnoses Radiculopathy of lumbar region Procedures CT LUMBAR SPINE WO IVCON CT LUMBAR SPINE W/O CONTRAST MATERIAL Loyda Steele MD [address] [place] [address] Phone: tel: fax: [facility] [place] [address] Referral IDStatusReasonStart DateExpiration DateVisits RequestedVisits [id number] Auto-Generated Referral / [facility] Summary Purpose Family History Unknown Family Member Name Dates Details Family history of diabetes m ellitus: Mother(V18.0, Z83.3) Status:ActiveFamily history of hypertension: Father(V17.49, Z82.49) Status:ActiveNo pertinent family history: Sister, Brother(V49.89, Z78.9) Status:Active Relationship Condition Age at Onset Recorded Date/T larry Not Specified Hypertension Unknown Relationship Condition Age at Onset Recorded Date/T larry father Hypertension Unknown Diabetes mellitusUnknownNot SpecifiedMalignant neoplasmUnknownUnknown Family Member Name Dates Details Family history of diabetes m ellitus: Mother(V18.0, Z83.3) Status:ActiveFamily history of hypertension: Father(V17.49, Z82.49) Status:ActiveNo pertinent family history: Sister, Brother(V49.89, Z78.9) Status:Active Unknown Family Member Name Dates Details Family history of diabetes m ellitus: Mother(V18.0, Z83.3) Status:ActiveFamily history of hypertension: Father(V17.49, Z82.49) Status:ActiveNo pertinent family history: Sister, Brother(V49.89, Z78.9) Status:Active Relationship Condition Age at Onset Recorded Date/T larry father Diabetes mellitus Unknown HypertensionUnknownNot SpecifiedDiabetes mellitusUnknownMalignant neoplasm UnknownbrotherHigh blood cholesterolUnknown Relationship Condition Age at Onset Recorded Date/T larry father Diabetes mellitus Unknown HypertensionUnknownmotherDiabetes mellitusUnknownMalignant neoplasmUnknown brotherHigh blood cholesterolUnknown Relationship Condition Age at Onset Recorded Date/T larry father Diabetes mellitus Unknown HypertensionUnknownmotherDiabetes mellitusUnknownMalignant neoplasm of pancreas UnknownbrotherHigh blood cholesterolUnknown Advance Directives TypeDate RecordedPatient RepresentativeExplanationAdvance Directive(s)09/13/2021 12:58 PMAdvance Directive(s)08/16/2021 6:44 AMTypeDate RecordedPatient RepresentativeExplanationAdvance Directive(s)09/13/2021 12:58 PMAdvance Directive(s)08/16/2021 6:44 AMTypeDate RecordedPatient RepresentativeExplanation Advance Directive(s)11/22/2021 12:09 PMAdvance Directive(s)09/13/2021 12:58 PM Advance Directive(s)08/16/2021 6:44 AMTypeDate RecordedPatient Slipcover Cutter ExplanationAdvance Directive(s)11/22/2021 12:09 PMAdvance Directive(s)09/13/2021 12:58 PMAdvance Directive(s)08/16/2021 6:44 AMTypeDate RecordedPatient RepresentativeExplanationAdvance Directive(s)12/18/2021 12:58 PMAdvance Directive(s)11/22/2021 12:09 PMAdvance Directive(s)09/13/2021 12:58 PMAdvance Directive(s)08/16/2021 6:44 AMTypeDate RecordedPatient RepresentativeExplanation Advance Directive(s)12/31/2021 7:53 AMAdvance Directive(s)12/18/2021 12:58 PM Advance Directive(s)11/22/2021 12:09 PMAdvance Directive(s)09/13/2021 12:58 PM Advance Directive(s)08/16/2021 6:44 AMTypeDate RecordedPatient Slipcover Cutter ExplanationAdvance Directive(s)12/31/2021 7:53 AMAdvance Directive(s)12/18/2021 12:58 PMAdvance Directive(s)11/22/2021 12:09 PMAdvance Directive(s)09/13/2021 12:58 PMAdvance Directive(s)08/16/2021 6:44 AM Advance Directive Response Recorded Date/ Time Advance Directives No February 06, 2018 8:27am Advance Directive Response Recorded Date/ Time Advance Directives No February 06, 2018 7:27am Advance Directive Response Recorded Date/ Time Advance Directives No August 06, 2023 9:20am Advance Directive Response Recorded Date/ Time Advance Directives No August 06, 2023 10:20am Reason for Referral SpecialtyDiagnoses / ProceduresReferred By ContactReferred To ContactCT IMAGING Diagnoses Radiculopathy of lumbar region Procedures CT LUMBAR SPINE WO IVCON CT LUMBAR SPINE W/O CONTRAST MATERIAL Loyda Steele MD [address] [place] [address] Ct Imaging [place] [address] Referral IDStatusReasonBailey DateExpiration DateVisits RequestedVisits [id number] Request Auto-Generated Referral /[id number] / ProceduresReferred By ContactReferred To Contact Diagnoses Chronic daily headache Degenerative disc disease, cervical Procedures Trigger Point Injection: right cervical paraspinals, left cervical paraspinals Ewa Rodriguez PA [address] [place] [address] Referral IDStatusReasonBailey DateExpiration DateVisits RequestedVisits [id number] / Procedures Referred By ContactReferred To Contact Diagnoses Secondary male hypogonadism Rosey Dubose MD [address] [place] [address] Referral IDStatusReasonBailey DateExpiration DateVisits RequestedVisits [id number] [id number] / Procedures Referred By ContactReferred To ContactMR IMAGING Diagnoses Chronic left-sided low back pain with left-sided sciatica Procedures MRI LUMBAR SPINE WO IVCON MRI, LUMBAR SPINE Nemunaitis, Gilmar Milton MD [address] [place] [address] Mr Imaging [facility] Referral IDStatusReasonBailey DateExpiration DateVisits RequestedVisits [id number] Auto-Generated Referral / Reason please refer raimundo de la vega to TEQUILA for EMG bilateral upper extremity Diagnosis 1 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) Referral Organization [facility] Referring Provider First Name Olvin Referring Provider Last Name Thu Referring Provider Specialty Orthopedic Surgery Referred Organization [facility] Referred Address [address] [place] [address] [facility] [place],[address] Referred Provider Specialty Neurology Referral Priority Routine General Notes Anika Carter 08:06:12 AM >received today, holding until Dr Andino's note is locked Shanice Carterfer 10/17/2022 08:27:34 AM >still holding, note not locked yet Reason * Waiting for appt to assess and treat Diagnosis 1 Left arm swelling (M 79.89) Referral Organization [facility] Referring Provider First Name Jose Referring Provider Last Name Oberer Referring Provider Specialty Family Prac shlomo Referred Organization [facility] Referred Provider Parth Hdz Referred Address [address] [facility] [address] [place],[address] Referred Provider Specialty Orthopedic S urgery Referral Priority Routine General Notes Jackie Mccoy 07:44:38 AM >referral received and faxed p2p successful per log Reason * FU 09/15 consult for bariatric surgery Diagnosis 1 Obesity, morbid, BMI 40.0-49.9 (E66.01) [facility] Referring Provider First Name Jose Referring Provider Last Name Oberer Referring Provider Specialty [facility] Prac shlomo Referred Organization [facility] Referred Address [address] [place] [place],[address] Referred Provider Specialty Surgery Referral Priority Routine [...] no appt scheduled, pt has not returned callsSpecialtyDiagnoses / ProceduresReferred By ContactReferred To ContactREHAB AND SPORTS THERAPY INS Diagnoses Lumbar pseudoarthrosis Procedures CONSULT TO PHYSICAL THERAPY PHYSICAL THERAPY EVALUATION HIGH COMPLEX 45 MINS Christine Gutierrez PA-C [address] [place] [address] [facility] [address] [place] [address] Referral IDStatusReasonStart DateExpiration DateVisits RequestedVisits [id number] Review Auto-Generated Referral [id number] / ProceduresReferred By ContactReferred To ContactCT IMAGING Diagnoses Acute bilateral low back pain with left-sided sciatica Procedures CT LUMBAR SPINE WO IVCON CT LUMBAR SPINE W/O CONTRAST MATERIAL Laura Beltran PA-C [address] [place] [id number] Imaging Referral IDStatusReasonStart DateExpiration DateVisits RequestedVisits [id number] Review Auto-Generated Referral [id number] / ProceduresReferred By ContactReferred To ContactREHAB AND SPORTS THERAPY INS Diagnoses Spondylolisthesis of lumbar region Procedures CONSULT TO PHYSICAL THERAPY PHYSICAL THERAPY EVALUATION HIGH COMPLEX 45 MINS Laura Beltran PA-C [address] [place] [id number] [facility] [address] [place] [address] Referral IDStatusReasonBailey DateExpiration DateVisits RequestedVisits [id number] Review Auto-Generated Referral Reason LLQ pain Diagnosis 1 Right inguinal pain (R10.31) [facility] [address] Referring Provider First Name Jose Referring Provider Last Name Oberemegan Referring Provider Specialty Family Prac shlomo Referred Organization [facility] Referred Provider Ochoa Arango Referred Address ,[place], [place],[address] Referred Provider Specialty Surgery Referral Priority Routine General Notes Mercde Briseno 2020 04:09:03 PM >REFERRAL SENT SpecialtyDiagnoses / ProceduresReferred By ContactReferred To Contact Diagnoses Pre-op testing Procedures REFER TO PACC - PRE ANESTHESIA CONSULTATION CLINIC OFFICE/OUTPATIENT [facility] 60-74 MINUTES Christine Gutierrez PA-C [address] [place] [address] Referral IDStatusReasonStart DateExpiration DateVisits RequestedVisits [id number] PCP Requested Referral /[id number] / ProceduresReferred By ContactReferred To ContactPain Management Diagnoses Chronic bilateral low back pain without sciatica Procedures CONSULT TO PAIN MGT OFFICE/OUTPATIENT NEW HIGH MDM 60-74 MINUTES Venkatesh Moody PA-C [address] [place] [id number] Referral IDStatusReasonStart DateExpiration DateVisits RequestedVisits [id number] PCP Requested Referral Chief Complaint and Reason for Visit Chief Complaint wound infection, janiya lucinations, htn wound infection, hallucinations wound infection, hallucinations Bactrim monitoring staph infection HTN deana-annual Chief Complaint Bactrim monitoring s taph infection HTN deana-annual M54.42 Chief Complaint deana-annual M54.42 B low back surgery FALL - SLURRED SPEACHReason for VisitChronic kidney disease, stage 3 Dizziness Elevated blood pressure reading with diagnosis of hypertension Obstructive sleep apnea Repeated falls Slurred speech Chief Complaint deana-annual M54.42 B low back surgery FALL - SLURRED SPEACHReason for VisitAtypical migraine Chronic kidney disease, stage 3 Dizziness Elevated blood pressure reading with diagnosis of hypertension Lumbar radicular pain Obstructive sleep apnea Postlaminectomy syndrome Repeated falls Sepsis Slurred speech Chief Complaint deana-annual M54.42 B low back surgery FALL - SLURRED SPEACH n18.30Reason for VisitAtypical migraine Chronic kidney disease, stage 3 Dizziness Elevated blood pressure reading with diagnosis of hypertension Lumbar radicular pain Obstructive sleep apnea Postlaminectomy syndrome Repeated falls Sepsis Slurred speech Chief Complaint M54.42 FALL - SLURRED SPEACH n18.30 Right Patellar Clunk B low back surgery Right Patellar ClunkReason for VisitAtypical migraine Chronic kidney disease, stage 3 Dizziness Elevated blood pressure reading with diagnosis of hypertension Lumbar radicular pain Obstructive sleep apnea Postlaminectomy syndrome Repeated falls Sepsis Slurred speech Chief Complaint M54.42 FALL - SLURRED SPEACH n18.30 Right Patellar Clunk B low back surgery Right Patellar Clunk Right Patellar ClunkReason for VisitAtypical migraine Chronic kidney disease, stage 3 Dizziness Elevated blood pressure reading with diagnosis of hypertension Lumbar radicular pain Obstructive sleep apnea Postlaminectomy syndrome Repeated falls Sepsis Slurred speech Chief Complaint FALL - SLURRED SPEAC H n18.30 Right Patellar Clunk B low back surgery Right Patellar Clunk Right Patellar Clunk ObesityReason for VisitAtypical migraine Chronic kidney disease, stage 3 Dizziness [...] fatty liver Sinus Infection R19.7 Obesity diahrrea diahrreaReason for VisitDiarrhea Chief Complaint Diarrhea fatty liver Sinus Infection R19.7 Obesity diahrrea diahrrea Z91.09 eupaggt-uwxewbd-hgannwus/wt loss RD WM f/uReason for VisitDiarrhea Diarrhea Diverticulosis Fatty liver Chief Complaint Diarrhea fatty liver Sinus Infection R19.7 Obesity diahrrea diahrrea Z91.09 kfaeknq-jyuwbzi-dzqpviwb/wt loss RD WM f/u WMN f/upReason for VisitDiarrhea Diarrhea Diverticulosis Fatty liver Chief Complaint Diarrhea fatty liver Sinus Infection R19.7 Obesity diahrrea diahrrea Z91.09 pvbyilv-wxwxlvi-zstioajn/wt loss RD WM f/u WMN f/up J22 Amb DocumentationReason for VisitDiarrhea Diarrhea Diverticulosis Fatty liver BMI 40.0-44.9, adult Diarrhea Essential hypertension Fatty liver Obstructive sleep apnea of adult Osteoarthritis of knee Prediabetes Chief Complaint diahrrea diahrrea Z91.09 eqcjltx-vilhoyu-wnogmbsx/wt loss RD WM f/u WMN f/up J22 Amb Documentation e78.2 r19.7 n19 6 MONTH/LABSReason for VisitDiarrhea Diarrhea Diverticulosis Fatty liver BMI 40.0-44.9, adult Diarrhea Essential hypertension Fatty liver Obstructive sleep apnea of adult Osteoarthritis of knee Prediabetes Chief Complaint diahrrea diahrrea Z91.09 vlflhdi-lpafdry-tsvpxcbj/wt loss RD WM f/u WMN f/up J22 Amb Documentation e78.2 r19.7 n19 6 MONTH/LABS J31.0Reason for VisitDiarrhea Diarrhea Diverticulosis Fatty liver BMI 40.0-44.9, adult Diarrhea Essential hypertension Fatty liver Obstructive sleep apnea of adult Osteoarthritis of knee Prediabetes Atypical migraine BMI 40.0-44.9, adult Chronic back pain Chronic kidney disease, stage 3 Chronic rhinitis Coronary artery disease involving [place] coronary artery of [place] heart Diarrhea Diverticulosis Essential hypertension Fatty liver Generalized anxiety disorder with panic attacks Generalized OA Left ear impacted cerumen Lumbar radicular pain 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 Obstructive sleep apnea Polypharmacy Postlaminectomy syndrome Prediabetes Stable angina Chief Complaint RD WM f/u WMN f/up J22 Amb Documentation e78.2 r19.7 n19 6 MONTH/LABS J31.0Reason for VisitBMI 40.0-44.9, adult Diarrhea Essential hypertension Fatty liver Obstructive sleep apnea of adult Osteoarthritis of knee Prediabetes Atypical migraine BMI 40.0-44.9, adult Chronic back pain Chronic kidney disease, stage 3 Chronic rhinitis Coronary artery disease involving [place] coronary artery of [place] heart Diarrhea Diverticulosis Essential hypertension Fatty liver Generalized anxiety disorder with panic attacks Generalized OA Left ear impacted cerumen Lumbar radicular pain 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 Obstructive sleep apnea Polypharmacy Postlaminectomy syndrome Prediabetes Stable angina Chief Complaint e78.2 r19.7 n19 6 MONTH/LABS J31.0 post lumbar lamiReason for VisitAtypical migraine BMI 40.0-44.9, adult Chronic back pain Chronic kidney disease, stage 3 Chronic rhinitis Coronary artery disease involving [place] coronary artery of [place] heart Diarrhea Diverticulosis Essential hypertension Fatty liver [...] post lumbar lami bilateral involuntary hand twitching M54.2Reason for VisitAtypical migraine BMI 40.0-44.9, adult Chronic back pain Chronic kidney disease, stage 3 Chronic rhinitis Coronary artery disease involving [place] coronary artery of [place] heart Diarrhea Diverticulosis Essential hypertension Fatty liver [...] post lumbar lami bilateral involuntary hand twitching M54.2Reason for VisitAtypical migraine BMI 40.0-44.9, adult Chronic back pain Chronic kidney disease, stage 3 Chronic rhinitis Coronary artery disease involving [place] coronary artery of [place] heart Diarrhea Diverticulosis Essential hypertension Fatty liver [...] lumbar lami bilateral involuntary hand twitching M54.2 DEANA/ANNUALReason for VisitBMI 40.0-44.9, adult Essential hypertension Fatty liver Mixed hyperlipidemia Obstructive sleep apnea of adult Prediabetes Generalized anxiety disorder with panic attacks Obstructive sleep apnea Postlaminectomy syndrome Sinusitis, acute Hyperreflexic Chief Complaint post lumbar lami bilateral involuntary hand twitching M54.2 DEANA/ANNUAL r79.89 e23.0Reason for VisitBMI 40.0-44.9, adult Essential hypertension Fatty liver Mixed [...] 8 :20am Coronary artery disease invo lving [place] coronary artery of [place] heart May 06, 2024 8:20am CVA (cerebral [...] 8 :20am Coronary artery disease invo lving [place] coronary artery of [place] heart May 06, 2024 8:20am CVA (cerebral [...] 8 :20am Coronary artery disease invo lving [place] coronary artery of [place] heart May 06, 2024 8:20am CVA (cerebral [...] 2024 12:50pm Coronary artery disease invo lving [place] coronary artery of [place] heart July 28, 2024 12:50pm Essential hypertension July 28 12:50pm Fatty liver July 28, 2024 1 2:50pm Mixed hyperlipidemia July 28, 2024 12:50pm Obstructive sleep apnea July 28 12:50pm Prediabetes July 28, 2024 1 2:50pm Chronic insomnia August 01, 2024 9 :59am CVA (cerebral vascular accident) 2024 9:59am Essential hypertension August 01 9:59am GERD (gastroesophageal reflux disease) F ebruary 2024 9:59am Obstructive sleep apnea of adult 2024 9:59am Prediabetes August 01, 2024 9 :59am Chief Complaint Admit Date FATTY LIVER June 09, 2024 12:16pm deana/ 6 months August 01, 2024 9 :59am poss sinus infection August 18, 2024 11:33am Reason for Visit Admit Date BMI 40.0-44.9, adult July 28, 2024 12:50pm Coronary artery disease invo lving [place] coronary artery of [place] heart July 28, 2024 12:50pm Essential hypertension [...] July 9:59am GERD (gastroesophageal reflux disease) F 2024 9:59am Intolerance to BiPAP/CPAP August 01, [...] 2024 12:50pm Coronary artery disease invo lving [place] coronary artery of [place] heart July 28, 2024 12:50pm Essential hypertension [...] July 9:59am GERD (gastroesophageal reflux disease) F 2024 9:59am Intolerance to BiPAP/CPAP August 01, [...] 2024 12:50pm Coronary artery disease invo lving [place] coronary artery of [place] heart July 28, 2024 12:50pm Essential hypertension [...] 18, 2024 11:33am CVA (cerebral vascular accident) ua y 2024 11:33am Sinusitis, acute August 18, [...] 2024 1:28pm Coronary artery disease invo lving [place] coronary artery of [place] heart October 31, 2024 1:28pm CVA (cerebral [...] 2024 1:28pm Coronary artery disease invo lving [place] coronary artery of [place] heart October 31, 2024 1:28pm CVA (cerebral [...] 2024 3:24 pm hurt RT leg/was at [facility] December 122024 2:50pm 2-3 month [...] December 19, 2024 9:34 am Chief Complaint Admit Date DEANA/INSOMNIA November 07, 2024 9:09a m N50.89 November 23, 2024 10:47 am s80.811a December 08, 2024 3:24 pm hurt RT leg/was at [facility] December 122024 2:50pm 2-3 month December 19, 2024 9:34 am Angina January 31, 2025 9:1 9am Angina February 02, 2025 10: 36am Chief Complaint Admit Date s80.811a December 08, 2024 3:24 pm hurt RT leg/was at [facility] December 122024 2:50pm 2-3 month [...] December 19, 2024 9:34 am Chief Complaint Admit Date Angina January 31, 2025 9:1 9am Angina February 02, 2025 10: 36am E29.1 February 28, 2025 1:40pm Chief Complaint Admit Date Angina January 31, 2025 9:1 9am Angina February 02, 2025 10: 36am E29.1 February 28, 2025 1:40pm E78.00,I10,R73.02 April 18, 2025 1 0:13am Reason for Visit Admit Date Cervical radiculopathy April 18 8:56am Chronic migraine without aur a with status migrainosus, not intractable April 18, 2025 8:56am History of stroke April 18, 2025 8 :56am Hyperreflexia April 18, 2025 8 :56am Lumbosacral radiculopathy April 18, 2025 8:56am Myalgia April 18, 2025 8 :56am Restless leg syndrome April 18, 2025 8:56am Chief Complaint Admit Date Angina January 31, 2025 9:1 9am Angina February 02, 2025 10: 36am E29.1 February 28, 2025 1:40pm E78.00,I10,R73.02 April 18, 2025 1 0:13am TPI per [place]--APPROVED #[id number] April 24, 2025 11:33am Reason for Visit Admit Date Cervical radiculopathy April 18 8:56am Chronic migraine without aur a with status migrainosus, not intractable April 18, 2025 8:56am History of stroke April 18, 2025 8 :56am Hyperreflexia April 18, 2025 8 :56am Lumbosacral radiculopathy April 18, 2025 8:56am Myalgia April 18, 2025 8 :56am Restless leg syndrome April 18, 2025 8:56am Myalgia April 24, 2025 1 1:33am Chief Complaint Admit Date Angina January 31, 2025 9:1 9am Angina February 02, 2025 10: 36am E29.1 February 28, 2025 1:40pm E78.00,I10,R73.02 April 18, 2025 1 0:13am TPI per [place]--APPROVED #[id number] April 24, 2025 11:33am 6 month f/u w/ fasting labs April 12:59pm Chief Complaint MARY JIMENEZ is being seen [...] section and content) DATE CREATED AUTHOR 05/12/2020 [facility] DATE CREATED AUTHOR AUTHOR'S ORGANIZ ATION 04/02/2022 [facility] DATE CREATED AUTHOR AUTHOR'S ORGANIZ ATION 07/22/2022 [facility] DATE CREATED AUTHOR AUTHOR'S ORGANIZ ATION 07/22/2022 [facility] DATE CREATED AUTHOR AUTHOR'S ORGANIZ ATION 12/09/2022 [facility] DATE CREATED AUTHOR AUTHOR'S ORGANIZ ATION 01/27/2024 [facility] DATE CREATED AUTHOR AUTHOR'S ORGANIZ ATION 11/25/2024 [facility] DATE CREATED AUTHOR AUTHOR'S ORGANIZ ATION 12/07/2024 [facility] DATE CREATED AUTHOR AUTHOR'S ORGANIZ ATION 01/29/2025 [facility] DATE CREATED AUTHOR AUTHOR'S ORGANIZ ATION 03/03/2025 [facility] DATE CREATED AUTHOR AUTHOR'S ORGANIZ ATION 03/12/2025 [facility] DATE CREATED AUTHOR AUTHOR'S ORGANIZ ATION 03/24/2025 [facility] DATE CREATED AUTHOR AUTHOR'S ORGANIZ ATION 04/19/2025 [facility] Source Comments (unrecognize d section and content) In the event this informatio n is protected by the Federal Confidentiality of Alcohol and Drug Abuse Patient Records regulations: The Federal rules restrict any use of the information to criminally investigate or prosecute any alcohol or drug abuse patient.[facility] the event this information is protected by the Federal Confidentiality of Alcohol and Drug Abuse Patient Records regulations: The Federal rules restrict any use of the information to criminally investigate or prosecute any alcohol or drug abuse patient.[facility] HospitalIn the event this information is protected by the Federal Confidentiality of Alcohol and Drug Abuse Patient Records regulations: The Federal rules restrict any use of the information to criminally investigate or prosecute any alcohol or drug abuse patient.[facility] HospitalIn the event this information is protected by the Federal Confidentiality of Alcohol and Drug Abuse Patient Records regulations: The Federal rules restrict any use of the information to criminally investigate or prosecute any alcohol or drug abuse patient.[facility] HospitalIn the event this information is protected by the Federal Confidentiality of Alcohol and Drug Abuse Patient Records regulations: The Federal rules restrict any use of the information to criminally investigate or prosecute any alcohol or drug abuse patient.[facility] HospitalIn the event this information is protected by the Federal Confidentiality of Alcohol and Drug Abuse Patient Records regulations: The Federal rules restrict any use of the information to criminally investigate or prosecute any alcohol or drug abuse patient.[facility] HospitalIn the event this information is protected by the Federal Confidentiality of Alcohol and Drug Abuse Patient Records regulations: The Federal rules restrict any use of the information to criminally investigate or prosecute any alcohol or drug abuse patient.[facility] HospitalIn the event this information is protected by the Federal Confidentiality of Alcohol and Drug Abuse Patient Records regulations: The Federal rules restrict any use of the information to criminally investigate or prosecute any alcohol or drug abuse patient.[facility] HospitalIn the event this information is protected by the Federal Confidentiality of Alcohol and Drug Abuse Patient Records regulations: The Federal rules restrict any use of the information to criminally investigate or prosecute any alcohol or drug abuse patient.[facility] HospitalIn the event this information is protected by the Federal Confidentiality of Alcohol and Drug Abuse Patient Records regulations: The Federal rules restrict any use of the information to criminally investigate or prosecute any alcohol or drug abuse patient.[facility] HospitalIn the event this information is protected by the Federal Confidentiality of Alcohol and Drug Abuse Patient Records regulations: The Federal rules restrict any use of the information to criminally investigate or prosecute any alcohol or drug abuse patient.[facility] HospitalIn the event this information is protected by the Federal Confidentiality of Alcohol and Drug Abuse Patient Records regulations: The Federal rules restrict any use of the information to criminally investigate or prosecute any alcohol or drug abuse patient.[facility] HospitalIn the event this information is protected by the Federal Confidentiality of Alcohol and Drug Abuse Patient Records regulations: The Federal rules restrict any use of the information to criminally investigate or prosecute any alcohol or drug abuse patient.[facility] HospitalIn the event this information is protected by the Federal Confidentiality of Alcohol and Drug Abuse Patient Records regulations: The Federal rules restrict any use of the information to criminally investigate or prosecute any alcohol or drug abuse patient.[facility] HospitalIn the event this information is protected by the Federal Confidentiality of Alcohol and Drug Abuse Patient Records regulations: The Federal rules restrict any use of the information to criminally investigate or prosecute any alcohol or drug abuse patient.[facility] HospitalIn the event this information is protected by the Federal Confidentiality of Alcohol and Drug Abuse Patient Records regulations: The Federal rules restrict any use of the information to criminally investigate or prosecute any alcohol or drug abuse patient.[facility] HospitalIn the event this information is protected by the Federal Confidentiality of Alcohol and Drug Abuse Patient Records regulations: The Federal rules restrict any use of the information to criminally investigate or prosecute any alcohol or drug abuse patient.[facility] HospitalIn the event this information is protected by the Federal Confidentiality of Alcohol and Drug Abuse Patient Records regulations: The Federal rules restrict any use of the information to criminally investigate or prosecute any alcohol or drug abuse patient.[facility] HospitalIn the event this information is protected by the Federal Confidentiality of Alcohol and Drug Abuse Patient Records regulations: The Federal rules restrict any use of the information to criminally investigate or prosecute any alcohol or drug abuse patient.[facility] HospitalIn the event this information is protected by the Federal Confidentiality of Alcohol and Drug Abuse Patient Records regulations: The Federal rules restrict any use of the information to criminally investigate or prosecute any alcohol or drug abuse patient.[facility] HospitalIn the event this information is protected by the Federal Confidentiality of Alcohol and Drug Abuse Patient Records regulations: The Federal rules restrict any use of the information to criminally investigate or prosecute any alcohol or drug abuse patient.[facility] HospitalIn the event this information is protected by the Federal Confidentiality of Alcohol and Drug Abuse Patient Records regulations: The Federal rules restrict any use of the information to criminally investigate or prosecute any alcohol or drug abuse patient.[facility] HospitalIn the event this information is protected by the Federal Confidentiality of Alcohol and Drug Abuse Patient Records regulations: The Federal rules restrict any use of the information to criminally investigate or prosecute any alcohol or drug abuse patient.[facility] HospitalIn the event this information is protected by the Federal Confidentiality of Alcohol and Drug Abuse Patient Records regulations: The Federal rules restrict any use of the information to criminally investigate or prosecute any alcohol or drug abuse patient.[facility] HospitalIn the event this information is protected by the Federal Confidentiality of Alcohol and Drug Abuse Patient Records regulations: The Federal rules restrict any use of the information to criminally investigate or prosecute any alcohol or drug abuse patient.[facility] HospitalIn the event this information is protected by the Federal Confidentiality of Alcohol and Drug Abuse Patient Records regulations: The Federal rules restrict any use of the information to criminally investigate or prosecute any alcohol or drug abuse patient.[facility] HospitalIn the event this information is protected by the Federal Confidentiality of Alcohol and Drug Abuse Patient Records regulations: The Federal rules restrict any use of the information to criminally investigate or prosecute any alcohol or drug abuse patient.[facility] HospitalIn the event this information is protected by the Federal Confidentiality of Alcohol and Drug Abuse Patient Records regulations: The Federal rules restrict any use of the information to criminally investigate or prosecute any alcohol or drug abuse patient.[facility] HospitalIn the event this information is protected by the Federal Confidentiality of Alcohol and Drug Abuse Patient Records regulations: The Federal rules restrict any use of the information to criminally investigate or prosecute any alcohol or drug abuse patient.[facility] HospitalIn the event this information is protected by the Federal Confidentiality of Alcohol and Drug Abuse Patient Records regulations: The Federal rules restrict any use of the information to criminally investigate or prosecute any alcohol or drug abuse patient.[facility] HospitalIn the event this information is protected by the Federal Confidentiality of Alcohol and Drug Abuse Patient Records regulations: The Federal rules restrict any use of the information to criminally investigate or prosecute any alcohol or drug abuse patient.[facility] HospitalIn the event this information is protected by the Federal Confidentiality of Alcohol and Drug Abuse Patient Records regulations: The Federal rules restrict any use of the information to criminally investigate or prosecute any alcohol or drug abuse patient.[facility] HospitalIn the event this information is protected by the Federal Confidentiality of Alcohol and Drug Abuse Patient Records regulations: The Federal rules restrict any use of the information to criminally investigate or prosecute any alcohol or drug abuse patient.[facility] HospitalIn the event this information is protected by the Federal Confidentiality of Alcohol and Drug Abuse Patient Records regulations: The Federal rules restrict any use of the information to criminally investigate or prosecute any alcohol or drug abuse patient.[facility] HospitalIn the event this information is protected by the Federal Confidentiality of Alcohol and Drug Abuse Patient Records regulations: The Federal rules restrict any use of the information to criminally investigate or prosecute any alcohol or drug abuse patient.[facility] HospitalIn the event this information is protected by the Federal Confidentiality of Alcohol and Drug Abuse Patient Records regulations: The Federal rules restrict any use of the information to criminally investigate or prosecute any alcohol or drug abuse patient.[facility] HospitalIn the event this information is protected by the Federal Confidentiality of Alcohol and Drug Abuse Patient Records regulations: The Federal rules restrict any use of the information to criminally investigate or prosecute any alcohol or drug abuse patient.[facility] HospitalIn the event this information is protected by the Federal Confidentiality of Alcohol and Drug Abuse Patient Records regulations: The Federal rules restrict any use of the information to criminally investigate or prosecute any alcohol or drug abuse patient.[facility] HospitalIn the event this information is protected by the Federal Confidentiality of Alcohol and Drug Abuse Patient Records regulations: The Federal rules restrict any use of the information to criminally investigate or prosecute any alcohol or drug abuse patient.[facility] HospitalIn the event this information is protected by the Federal Confidentiality of Alcohol and Drug Abuse Patient Records regulations: The Federal rules restrict any use of the information to criminally investigate or prosecute any alcohol or drug abuse patient.[facility] HospitalIn the event this information is protected by the Federal Confidentiality of Alcohol and Drug Abuse Patient Records regulations: The Federal rules restrict any use of the information to criminally investigate or prosecute any alcohol or drug abuse patient.[facility] HospitalIn the event this information is protected by the Federal Confidentiality of Alcohol and Drug Abuse Patient Records regulations: The Federal rules restrict any use of the information to criminally investigate or prosecute any alcohol or drug abuse patient.[facility] HospitalIn the event this information is protected by the Federal Confidentiality of Alcohol and Drug Abuse Patient Records regulations: The Federal rules restrict any use of the information to criminally investigate or prosecute any alcohol or drug abuse patient.[facility] HospitalIn the event this information is protected by the Federal Confidentiality of Alcohol and Drug Abuse Patient Records regulations: The Federal rules restrict any use of the information to criminally investigate or prosecute any alcohol or drug abuse patient.[facility] HospitalIn the event this information is protected by the Federal Confidentiality of Alcohol and Drug Abuse Patient Records regulations: The Federal rules restrict any use of the information to criminally investigate or prosecute any alcohol or drug abuse patient.[facility] HospitalIn the event this information is protected by the Federal Confidentiality of Alcohol and Drug Abuse Patient Records regulations: The Federal rules restrict any use of the information to criminally investigate or prosecute any alcohol or drug abuse patient.[facility] HospitalIn the event this information is protected by the Federal Confidentiality of Alcohol and Drug Abuse Patient Records regulations: The Federal rules restrict any use of the information to criminally investigate or prosecute any alcohol or drug abuse patient.[facility] HospitalIn the event this information is protected by the Federal Confidentiality of Alcohol and Drug Abuse Patient Records regulations: The Federal rules restrict any use of the information to criminally investigate or prosecute any alcohol or drug abuse patient.[facility] HospitalIn the event this information is protected by the Federal Confidentiality of Alcohol and Drug Abuse Patient Records regulations: The Federal rules restrict any use of the information to criminally investigate or prosecute any alcohol or drug abuse patient.[facility] HospitalIn the event this information is protected by the Federal Confidentiality of Alcohol and Drug Abuse Patient Records regulations: The Federal rules restrict any use of the information to criminally investigate or prosecute any alcohol or drug abuse patient.[facility] HospitalIn the event this information is protected by the Federal Confidentiality of Alcohol and Drug Abuse Patient Records regulations: The Federal rules restrict any use of the information to criminally investigate or prosecute any alcohol or drug abuse patient.[facility] HospitalIn the event this information is protected by the Federal Confidentiality of Alcohol and Drug Abuse Patient Records regulations: The Federal rules restrict any use of the information to criminally investigate or prosecute any alcohol or drug abuse patient.[facility] HospitalIn the event this information is protected by the Federal Confidentiality of Alcohol and Drug Abuse Patient Records regulations: The Federal rules restrict any use of the information to criminally investigate or prosecute any alcohol or drug abuse patient.[facility] HospitalIn the event this information is protected by the Federal Confidentiality of Alcohol and Drug Abuse Patient Records regulations: The Federal rules restrict any use of the information to criminally investigate or prosecute any alcohol or drug abuse patient.[facility] HospitalIn the event this information is protected by the Federal Confidentiality of Alcohol and Drug Abuse Patient Records regulations: The Federal rules restrict any use of the information to criminally investigate or prosecute any alcohol or drug abuse patient.[facility] HospitalIn the event this information is protected by the Federal Confidentiality of Alcohol and Drug Abuse Patient Records regulations: The Federal rules restrict any use of the information to criminally investigate or prosecute any alcohol or drug abuse patient.[facility] HospitalIn the event this information is protected by the Federal Confidentiality of Alcohol and Drug Abuse Patient Records regulations: The Federal rules restrict any use of the information to criminally investigate or prosecute any alcohol or drug abuse patient.[facility] HospitalIn the event this information is protected by the Federal Confidentiality of Alcohol and Drug Abuse Patient Records regulations: The Federal rules restrict any use of the information to criminally investigate or prosecute any alcohol or drug abuse patient.[facility] HospitalIn the event this information is protected by the Federal Confidentiality of Alcohol and Drug Abuse Patient Records regulations: The Federal rules restrict any use of the information to criminally investigate or prosecute any alcohol or drug abuse patient.[facility] HospitalIn the event this information is protected by the Federal Confidentiality of Alcohol and Drug Abuse Patient Records regulations: The Federal rules restrict any use of the information to criminally investigate or prosecute any alcohol or drug abuse patient.[facility] HospitalIn the event this information is protected by the Federal Confidentiality of Alcohol and Drug Abuse Patient Records regulations: The Federal rules restrict any use of the information to criminally investigate or prosecute any alcohol or drug abuse patient.[facility] HospitalIn the event this information is protected by the Federal Confidentiality of Alcohol and Drug Abuse Patient Records regulations: The Federal rules restrict any use of the information to criminally investigate or prosecute any alcohol or drug abuse patient.[facility] HospitalIn the event this information is protected by the Federal Confidentiality of Alcohol and Drug Abuse Patient Records regulations: The Federal rules restrict any use of the information to criminally investigate or prosecute any alcohol or drug abuse patient.[facility] HospitalIn the event this information is protected by the Federal Confidentiality of Alcohol and Drug Abuse Patient Records regulations: The Federal rules restrict any use of the information to criminally investigate or prosecute any alcohol or drug abuse patient.[facility] HospitalIn the event this information is protected by the Federal Confidentiality of Alcohol and Drug Abuse Patient Records regulations: The Federal rules restrict any use of the information to criminally investigate or prosecute any alcohol or drug abuse patient.[facility] HospitalIn the event this information is protected by the Federal Confidentiality of Alcohol and Drug Abuse Patient Records regulations: The Federal rules restrict any use of the information to criminally investigate or prosecute any alcohol or drug abuse patient.[facility] HospitalIn the event this information is protected by the Federal Confidentiality of Alcohol and Drug Abuse Patient Records regulations: The Federal rules restrict any use of the information to criminally investigate or prosecute any alcohol or drug abuse patient.[facility] HospitalIn the event this information is protected by the Federal Confidentiality of Alcohol and Drug Abuse Patient Records regulations: The Federal rules restrict any use of the information to criminally investigate or prosecute any alcohol or drug abuse patient.[facility] HospitalIn the event this information is protected by the Federal Confidentiality of Alcohol and Drug Abuse Patient Records regulations: The Federal rules restrict any use of the information to criminally investigate or prosecute any alcohol or drug abuse patient.[facility] HospitalIn the event this information is protected by the Federal Confidentiality of Alcohol and Drug Abuse Patient Records regulations: The Federal rules restrict any use of the information to criminally investigate or prosecute any alcohol or drug abuse patient.[facility] HospitalIn the event this information is protected by the Federal Confidentiality of Alcohol and Drug Abuse Patient Records regulations: The Federal rules restrict any use of the information to criminally investigate or prosecute any alcohol or drug abuse patient.[facility] HospitalIn the event this information is protected by the Federal Confidentiality of Alcohol and Drug Abuse Patient Records regulations: The Federal rules restrict any use of the information to criminally investigate or prosecute any alcohol or drug abuse patient.[facility] HospitalIn the event this information is protected by the Federal Confidentiality of Alcohol and Drug Abuse Patient Records regulations: The Federal rules restrict any use of the information to criminally investigate or prosecute any alcohol or drug abuse patient.[facility] HospitalIn the event this information is protected by the Federal Confidentiality of Alcohol and Drug Abuse Patient Records regulations: The Federal rules restrict any use of the information to criminally investigate or prosecute any alcohol or drug abuse patient.[facility] Care Teams (unrecognized sec tion and content) Team Status: Active Member Role Status Dates Jose Obgustabor , DO Primary Care Provider Active Team Status: Inactive Member Role Status Dates Jose Obgustabor , DO Primary Care Provider Active St art: July 28, 2024 End: July 28, 2024Rafael Holbrook MDAttending ProviderActiveStart: July 28, 2024 End: July 28, 2024 Team Status: Inactive Member Role Status Dates Jose Oberer , DO Primary Care Provider Active St art: August 01, 2024 End: August 01, 2024Pemae Graham , NPAttending ProviderActiveStart: August 01, 2024 End: August 01, 2024 Team Status: Inactive Member Role Status Dates Jose Obgustabor , DO Primary Care Provide r, Attending Provider Active Start: August 18, 2024 End: August 18, 2024 Team Status: Inactive Member Role Status Dates Jose Obgustabor , DO Primary Care Provider Active St art: August 31, 2024 End: August 31hmdiana Dubose , MDAttending ProviderActiveStart: August 31, 2024 End: August 31, 2024 Team Status: Inactive Member Role Status Dates Jose Valdovinos , DO Primary Care Provider Active St art: September 28, 2024 End: September 28, 2024Rafael Holbrook MDAttending ProviderActiveStart: September 28, 2024 End: September 28, 2024 Team Status: Active Member Role Status Dates Jose Whyter , DO Primary Care Provider Active St art: June 09, 2024 Rafael Holbrook , MDReferring ProviderActiveStart: June 09, 2024 Chalo Linares APRNOther ProviderActiveStart: June 09, 2024 Jayme Salazar MDAttending ProviderActiveStart: June 09, 2024 Team Status: Inactive Member Role Status Dates Jose Oberer DO Primary Care Provider Active Fernanda Graham NPAttending ProviderActive Team Status: Active Member Role Status Dates Jose Oberer , DO Primary Care Provider, Attending Prov ider Active Team Status: Inactive Member Role Status Dates Jose Oberer , DO Primary Care Provider Active Rafael Holbrook MDAttending ProviderActive Team Status: Inactive Member Role Status Dates Jose Obgustabor DO Primary Care Provider, Attending Prov ider Active Se Rodriges , MDReferring ProviderActive Team Status: Inactive Member Role Status Dates Jose Obgustabor , DO Primary Care Provider Active Olvin Andino , DOAttending ProviderActive Team Status: Inactive Member Role Status Dates Jose Oberer , DO Primary Care Provider, Attending Prov ider Active Team Status: Inactive Member Role Status Dates Jose Oberer , DO Primary Care Provider Active Rafael Zheng , DOAttending ProviderActive Team Status: Inactive Member Role Status Dates Jose Oberer , DO Primary Care Provider Active Alejandro Ruvalcaba , DOEmergency ProviderActiveTeam MemberRelationshipSpecialty Start DateEnd Date Jose Valdovinos Paras [facility] [id number] PCP - General8/910Team MemberRelationshipSpecialtyStart DateEnd Date Jose Valdovinos Paras [address] [place], [place] [id number] PCP - General8/910Team MemberRelationshipSpecialtyStart DateEnd Date IsabellRyan guzmanida Crain [address] [place], [place] [id number] PCP - General8/910Team MemberRelationshipSpecialtyStart DateEnd Date Jose Valdovinos Paras [address] [place], [place] [id number] PCP - General8/910Team MemberRelationshipSpecialtyStart DateEnd Date Jose Valdovinos Paras [address] [place], [place] [id number] PCP - General8/9/10Team MemberRelationshipSpecialtyStart DateEnd Date AbdirizakdianeRyanida Crain [address] [place], [place] [id number] PCP - General8/9/10Team MemberRelationshipSpecialtyStart DateEnd Date Obdiane Joseida Crain [address] [place] [id number] PCP - General8/9/10Team MemberRelationshipSpecialtyStart DateEnd Date AbdirizakgustaboRyan guzmanida Crain [address] [id number] PCP - General8/9/10Team MemberRelationshipSpecialtyStart DateEnd Date Abdirizakgustabomegan Joseida Crain [address] [id number] PCP - General8/9/10Team MemberRelationshipSpecialtyStart DateEnd Date Isabellmegan Joseida Crain [address] [place], [place] [id number] PCP - General8/9/10Team MemberRelationshipSpecialtyStart DateEnd Date Bonifacio Joseida Crain [address] [place], [place] [id number] PCP - General8/9/10Team MemberRelationshipSpecialtyStart DateEnd Date Bonifacio Joseida Crain [facility] [id number] PCP - General8/9/10Team MemberRelationshipSpecialtyStart DateEnd Date Bonifacio Joseida Crain [address] [id number] PCP - General8/9/10Team MemberRelationshipSpecialtyStart DateEnd Date AbdirizakJose contreras [address] [id number] PCP - General8/9/10Team MemberRelationshipSpecialtyStart DateEnd Date AbdirizakJose contreras [address] [place], [place] [id number] PCP - General8/9/10Team MemberRelationshipSpecialtyStart DateEnd Date Jose Valdovinos [address] [id number] PCP - General02/04/10Team MemberRelationshipSpecialtyStart DateEnd Date Jose Valdovinos [facility] [id number] PCP - General02/04/10Team MemberRelationshipSpecialtyStart DateEnd Date Jose Valdovinos [address] [place], [place] [id number] PCP - General02/04/10Team MemberRelationshipSpecialtyStart DateEnd Date Jose Valdovinos [address] [place], [place] [id number] PCP - General02/04/10Team MemberRelationshipSpecialtyStart DateEnd Date Jose Valdovinos [address] [place], [place] [id number] PCP - General02/04/10 Team Status: Inactive Member Role Status Dates Fernanda Graham NP Other Provider Active Landon Cortes Care Provider, Other ProviderActiveLoyda Steele MD Attending ProviderActiveRosey Dubose MDOther ProviderActive Team Status: Inactive Member Role Status Dates PHYSICIAN NO FAMILY Primary Care Provider Active [facility] ProviderActive Team Status: Inactive Member Role Status Dates Yobany Nelson MD Attending Provider Active Team Status: Inactive Member Role Status Dates Jose Valdovinos DO Primary Care Provider Active Yobany Nelson MDAttwilma ProviderActiveTeam MemberRelationshipSpecialtyStart DateEnd Date AbdirizakgustaboJose guzman Paras [address] [place] [address] PCP - General02/04/10Team MemberRelationshipSpecialtyStart DateEnd Date Obdiane, Jose Paras [address] [id number] PCP - General02/04/10Team MemberRelationshipSpecialtyStart DateEnd Date Jose Valdovinos [facility] [id number] PCP - General02/04/10 Team Status: Inactive Member Role Status Dates Jose Valdovinos , DO Primary Care Provider Active Ting Alatorre ProviderActiveTeam MemberRelationshipSpecialty Start DateEnd Date Jose Valdovinos [address] [place], [place] [phone] PCP [facility]02/04/10Team MemberRelationshipSpecialtyStart DateEnd Date Jose Valdovinos [address] [place], [place] [phone] PCP - [facility]02/04/10 Team Status: Active Member Role Status Dates Jose Isabellr , DO Primary Care Provider Active Mahamed Georges ProviderActiveCathy Zavala MDAdmit Provider, Attending ProviderActive Team Status: Active Member Role Status Dates Jose Whyter , DO Primary Care Provider Active Loyda Steele MDAttwilma ProviderActive Team Status: Inactive Member Role Status Dates Jose Whyter , DO Primary Care Provider Active Mahamed Georges ProviderActiveCathy Zavala MDAdmit Provider, Attending ProviderActiveKatherine SciarappaOther ProviderActiveNicole Braydon , DOOther ProviderActiveStamita Rodriges MDOther ProviderActiveChristophe Lori Carson , DOOther ProviderActiveFelicia LV Clark-BCOther ProviderActive Ortega Haskins , DOOther ProviderActiveAngela Lori Huerta , APRNOther Provider ActiveXavi Smith MDOther ProviderActive Team Status: Active Member Role Status Dates Jose Whyter , DO Primary Care Provider Active Ortega Haskins , DOAttending ProviderActive Team Status: Inactive Member Role Status Dates Jose Oberer , DO Primary Care Provider Active Ortega Haskins DOAttending ProviderActive Team Status: Inactive Member Role Status Dates Jose Oberer , DO Primary Care Provider Active Cathy Zavala MDAttending ProviderActive Team Status: Inactive Member Role Status Dates Jose Oberer , DO Primary Care Provider Active Rafael Zheng DOAttending ProviderActiveClinton County Hospitalles Steele MDOther Provider Active Team Status: Inactive Member Role Status Dates Jose Oberer , DO Primary Care Provider Active Loydales Steele MDAttending ProviderActive Team Status: Inactive Member Role Status Dates Jose Oberer , DO Primary Care Provider Active Rosey Dubose MDAttending ProviderActive Team Status: Inactive Member Role Status Dates Raquel Fitt - Refer , [facility] Attending Provider Active Start: April 30, 2023 End: April 30, 2023 Team Status: Inactive Member Role Status Dates Jose Oberer , DO Attending Provider Active Start : May 01, 2023 End: May 01, 2023 Team Status: Inactive Member Role Status Dates Raquel Fitt - Refer , [facility] Attending Provider Active Start: June 18, 2023 End: June 18, 2023 Team Status: Inactive Member Role Status Dates Raquel Fitt - Refer , [facility] Attending Provider Active Start: July 07, 2023 [...] art: July 28, 2023 End: July 28, 2023Lawraiden Soto MDAttending ProviderActiveStart: July 28, 2023 End: July 28, 2023 Team Status: Inactive Member Role Status Dates Jose Oberer , DO Primary Care Provider Active St art: July 30, 2023 End: July 30, 2023Lageovanni Soto MDAttending ProviderActiveStart: July 30, 2023 End: July 30, 2023 Team Status: Inactive Member Role Status Dates John Soto MD Attending Provider Active Start: July 16, 2023 End: July 16, 2023 Team Status: Inactive Member Role Status Dates Jsoe Valdovinos DO Attending Provider Active Start : July 30, 2023 End: July 30, 2023 Team Status: Active Member Role Status Dates Jose Valdovinos DO Primary Care Provide r, Attending Provider Active Start: August 06, 2023 Team Status: Inactive Member Role Status Dates Jose Valdovinos DO Primary Care Provider Active St art: August 19, 2023 End: August 19, 2023Lageovanni Soto MDAttending ProviderActiveStart: August 19, 2023 End: August 19, 2023 Team Status: Active Member Role Status Dates Jose Valdovinos DO Primary Care Provider Active St art: August 19, 2023 Anika Spangler Provider, Other ProviderActiveStart: August 19, 2023 Team MemberRelationshipSpecialtyStart DateEnd Date Jose Valdovinos DO PCP - [facility]06/11/20 Team Status: Inactive Member Role Status Dates Jose Valdovinos DO Primary Care Provider Active St art: August 24, 2023 End: August 24lurdes Posey NP-CAttending ProviderActiveStart: August 24, 2023 End: August 24, 2023 Team Status: Inactive Member Role Status Dates Jose Valdovinos DO Primary Care Provider Active St art: August 26, 2023 End: August 26, 2023Lageovanni Soto MDAttending ProviderActiveStart: August 26, 2023 End: August 26, 2023 Team Status: Inactive Member Role Status Dates Jose Valdovinos DO Primary Care Provider Active St art: September 28, 2023 End: September 27SEGUNDO Johnsonttending ProviderActiveStart: September 28, 2023 End: September 28, 2023 Team Status: Inactive Member Role Status Dates Jose Valdovinos DO Primary Care Provider Active St art: October 01, 2023 End: September 30shun Holbrook MDAttending ProviderActiveStart: October 01, 2023 End: October 01, 2023Team MemberRelationshipSpecialtyStart DateEnd Date BonifacioRyanida Crain DO [address] [place] [address] PCP - [facility]02/04/10 Team Status: Inactive Member Role Status Dates Jose Valdovinos DO Primary Care Provider Active St art: October 08, 2023 End: October 07lurdes Posey NP-CAttending ProviderActiveStart: October 08, 2023 End: October 08, 2023 Team Status: Active Member Role Status Dates Jose Valdovinos DO Primary Care Provider Active St art: October 08, 2023 Juan Carlos Salvador ProviderActiveStart: October 08, 2023 Team Status: Inactive Member [...] St art: December 10, 2023 End: December 09Anika Kline ProviderActiveStart: December 10, 2023 End: December 10, 2023 Team Status: Inactive Member Role Status Dates Jose Valdovinos DO Primary Care Provider Active St art: January 13, 2024 End: January 12julianna Martinez NP-CAttending ProviderActiveStart: January 13, 2024 End: January 13, 2024 [...] Active St art: February 01, 2024 End: January 31egdenys Graham , NPAttending ProviderActiveStart: February 01, 2024 End: February 01, 2024 Team Status: Inactive Member Role Status Dates Jose Valdovinos DO Primary Care Provider Active St art: February 23, 2024 End: February 22bdul Yamilex , MDAttending ProviderActiveStart: February 23, 2024 End: February 23, 2024Team MemberRelationshipSpecialtyStart DateEnd Date Jose Valdovinos DO [address] [facility] [place] [address] [facility]02/04/10Team MemberRelationshipSpecialtyStart DateEnd Date Jose Valdovinos MD [address] [facility] [place] [address] [facility]10/29/23Team MemberRelationshipSpecialtyStart DateEnd Date Jose Valdovinos MD [address] [facility] [place] [address] [facility]10/29/23 Team Status: Inactive Member Role Status Dates Jose Valdovinos DO Primary Care Provide r, Attending Provider Active Start: May 02, 2024 End: May 02, 2024 Team Status: Inactive Member Role Status Dates Jose Valdovinos DO Primary Care Provide r, Attending Provider Active Start: May 06, 2024 End: May 06, 2024Team MemberRelationshipSpecialtyStart DateEnd Date Jose Valdovinos MD [address] [place] [address] PCP - [facility]10/29/23 Team Status: Inactive Member Role Status Dates Jose Valdovinos DO Primary Care Provider Active St art: May 18, 2024 End: May 18shun Holbrook MDAttwilma ProviderActiveStart: May 18, 2024 End: May 18, 2024Team MemberRelationshipSpecialtyStart DateEnd Date Jose Valdovinos MD [address] [place] [phone] PCP - [facility]10/29/23Team MemberRelationshipSpecialtyStart DateEnd Date Jose Valdovinos MD [address] [place] [address] [facility] - [facility]/29/23Team MemberRelationshipSpecialtyStart DateEnd Date Jose Valdovinos MD [address] [place] [place] [address] [facility] - [facility]10/29/23Team MemberRelationshipSpecialtyStart DateEnd Date Jose Valdovinos MD [address] [place] [address] PCP - [facility] Medicine10/29/23Team MemberRelationshipSpecialtyStart DateEnd Date Jose Valdovinos MD [address] [place] [address] PCP - GeneralFamily Medicine10/29/23Team MemberRelationshipSpecialtyStart DateEnd Date Jose Valdovinos MD [address] [place] [address] PCP - GeneralFamily Medicine10/29/23Team MemberRelationshipSpecialtyStart DateEnd Date Jose Valdovinos MD [address] [place] [phone] PCP - Generalmily Medicine10/29/23Team MemberRelationshipSpecialtyStart DateEnd Date Jose Valdovinos MD [address] [place] [address] PCP - Generalmily Medicine10/29/23Team MemberRelationshipSpecialtyStart DateEnd Date Jose Valdovinos DO [address] [place] [address] PCP - General8/03/08Team MemberRelationshipSpecialtyStart DateEnd Date Jose Valdovinos DO [address] [place] [address] PCP - General8//Team MemberRelationshipSpecialtyStart DateEnd Date Jose Valdovinos MD [address] [place] [address] PCP - GeneralFamily Medicine10/29/23Team MemberRelationshipSpecialtyStart DateEnd Date Oberer, Jose L, MD [address] [place] [address] PCP - Generalmily Medicine10/29/23Team MemberRelationshipSpecialtyStart DateEnd Date Joes Valdovinos DO [address] [place] [address] PCP - General8/03/08Team MemberRelationshipSpecialtyStart DateEnd Date Jose Valdovinos DO PCP - Sycifnp26/05/18Team MemberRelationshipSpecialtyStart DateEnd Date Jose Valdovinos DO [address] [place] [address] PCP - General//Team MemberRelationshipSpecialtyStart DateEnd Date Jose Valdovinos DO [address] [place] [address] PCP - General//Team MemberRelationshipSpecialtyStart DateEnd Date Jose Valdovinos MD [address] [place] [address] PCP - Generalmily Medicine10/29/23Team MemberRelationshipSpecialtyStart DateEnd Date Jose Valdovinos MD [address] [place] [address] [facility] - [facility]/29/23Team MemberRelationshipSpecialtyStart DateEnd Date Jose Valdovinos DO [address] [place] [address] PCP - General02/04/10Team MemberRelationshipSpecialtyStart DateEnd Date Jose Valdovinos DO [address] [place] [address] PCP - General02/04/10Team MemberRelationshipSpecialtyStart DateEnd Date Jose Valdovinos DO [address] [place] [address] PCP - General02/04/10 Se Rodriges MD [address] [place] [address] Neurology08/23/24Team MemberRelationshipSpecialtyStart DateEnd Date Jose Valdovinos DO [address] [place] [address] PCP - General02/04/10 Se Rodriges MD [address] [place] [address] Neurology08/23/24Team MemberRelationshipSpecialtyStart DateEnd Date Jose Valdovinos DO [address] [place] [address] PCP - General02/04/10 Se Rodriges MD [address] [place] [address] Neurology08/23/24Team MemberRelationshipSpecialtyStart DateEnd Date Jose Valdovinos DO [address] [place] [address] PCP - General02/04/10 Se Rodriges MD [address] [place] [address] [facility]11 Neurology08/23/24Team MemberRelationshipSpecialtyStart DateEnd Date Jose Valdovinos DO [address] [place] [address] PCP - General02/04/10 Se Rodriges MD [address] [facility] [address] [place], [place] [phone] Neurology08/23/24Team MemberRelationshipSpecialtyStart DateEnd Date Jose Valdovinos DO [address] [place] [address] PCP - General02/04/10 Se Rodriges MD [address] [facility] [address] [facility] [place] [facility]11 Neurology08/23/24Team MemberRelationshipSpecialtyStart DateEnd Date Jose Valdovinos MD [address] [place] [address] PCP - GeneralFamily [facility]10/29/23 Kristi Blake PA [address] [facility] [place] [address] Physician AssistantNeurology09/08/24 Team Status: Inactive Member Role Status Dates Jose Valdovinos DO Primary Care Provide r, Attending Provider Active Start: October 19, 2024 End: October 19, 2024Team MemberRelationshipSpecialtyStart DateEnd Date Jose Valdovinos MD PCP - [facility]10/29/23 Kristi Blake PA [address] [place] [address] Physician AssistantNeurology09/08/24Team MemberRelationshipSpecialtyStart DateEnd Date Jose Valdovinos MD [address] [place] [address] [facility]10/29/23 Kristi Blake PA [address] [place] [address] Physician AssistantNeurology09/08/24 Team Status: Inactive Member Role Status Dates Jose Vladovinos DO Primary Care Provide r, Attending Provider Active Start: October 31, 2024 End: October 31, 2024 Team Status: Inactive Member Role Status Dates Jose Valdovinos DO Primary Care Provider Active St art: November 07, 2024 End: November 07, 2024Pemae Graham NPAttending ProviderActiveStart: November 07, 2024 End: November 07, 2024 Team Status: Inactive Member Role Status Dates Jose Valdovinos DO Primary Care Provide r, Attending Provider Active Start: November 23, 2024 End: November 23, 2024Team MemberRelationshipSpecialtyStart DateEnd Date Jose Valdovinos DO [address] [place] [address] PCP - General02/04/10 Se Rodriges MD [address] [facility] [address] [address] Neurology08/23/24Team MemberRelationshipSpecialtyStart DateEnd Date Jose Valdovinos MD [address] [facility] [place] [address] [facility] - [facility]10/29/23 Kristi Blake PA [address] [address] Physician AssistantNeurology09/08/24Team MemberRelationshipSpecialtyStart DateEnd Date Jose Valdovinos DO [address] [facility] [place] [address] PCP - General02/04/10 Se Rodriges MD [address] [address] Neurology08/23/24Team MemberRelationshipSpecialtyStart DateEnd Date Jose Valdovinos DO PCP - Jlvnacw61/11/20 Team Status: Inactive Member Role Status Dates Jose Valdovinos DO Primary Care Provider Active St art: November 23, 2024 End: November 23, 2024Jose Valdovinos DOAttending ProviderActiveStart: November 23, 2024 End: November 23, 2024 Team Status: Inactive Member Role Status Dates Jose Valdovinos DO Primary Care Provider Active St art: December 08, 2024 End: December 08, 2024Vicizabela Merritt LUNCHROOM MOTHER-CAttending ProviderActive Start: December 08, 2024 End: December 08, 2024 Team Status: Inactive Member Role Status Dates Jose Valdovinos DO Primary Care Provider Active St art: December 12, 2024 End: December 12, 2024Jose Valdovinos DOAttending ProviderActiveStart: December 12, 2024 End: December 12, 2024 Team Status: Inactive Member Role Status Dates Jose Valdovinos DO Primary Care Provider Active St art: December 19, 2024 End: December 19, 2024Rafael Holbrook , MDAttending ProviderActiveStart: December 19, 2024 End: December 19, 2024 Team Status: Inactive Member Role Status Dates Jose Valdovinos DO Primary Care Provider Active St art: January 31, 2025 End: January 31, 2025Mourhaf Traboulssi , MDAttending ProviderActiveStart: January 31, 2025 End: January 31, 2025 Team Status: Inactive Member Role Status Dates Jose Valdovinos DO Primary Care Provider Active St art: February 02, 2025 End: February 02, 2025Mourhaf Traboulssi , MDAttending ProviderActiveStart: February 02, 2025 End: February 02, 2025Team MemberRelationshipSpecialtyStart DateEnd Date Jose Valdovinos DO [address] [facility] [place] [address] PCP - General02/04/10 Se Rodriges MD [address] [place] [address] 08/23/24Team MemberRelationshipSpecialtyStart DateEnd Date Jose Valdovinos DO [address] [address] PCP - General02/04/10 Se Rodriges MD [address] [facility] [address] [place] [address] Neurology08/23/24 Team Status: Inactive Member Role Status Dates Jose Valdovinos DO Primary Care Provider Active St art: February 28, 2025 End: February 28hmad Sedrick ELAYNEttwilma ProviderActiveStart: February 28, 2025 End: February 28, 2025Team MemberRelationshipSpecialtyStart DateEnd Date Jose Valdovinos MD [address] [facility] [place] [address] PCP - GeneralFamily Medicine10/29/23 Kristi Blake PA [address] [place] [address] Physician AssistantNeurology09/08/24Team MemberRelationshipSpecialtyStart DateEnd Date Jose Valdovinos MD [address] [facility] [place] [address] PCP - GeneralFamily Medicine10/29/23 Kristi Blake PA [address] [place] [id number] Physician AssistantNeurology09/08/24Team MemberRelationshipSpecialtyStart DateEnd Date Jose Valdovinos MD [address] [facility] [place] [address] PCP - GeneralFamily Medicine10/29/23 Kristi Blake PA [address] [place] [id number] Physician AssistantNeurology09/08/24 Team Status: Active Member Role/Relationship Status Dates Jose RevelesDO diane Primary Care Provider Active Team Status: Inactive Member Role/Relationship Status Dates Jose Revelesdiane DO Primary Care Provider Active St art: January 31, 2025 End: January 31, 2025Mourharakesh Traboulssi , MDAttending ProviderActiveStart: January 31, 2025 End: January 31, 2025 Team Status: Inactive Member Role/Relationship Status Dates Jose Revelesdiane Primary Care Provider Active St art: February 02, 2025 End: February 02, 2025Mourhaf Traboulssi , MDAttending ProviderActiveStart: February 02, 2025 End: February 02, 2025 Team Status: Inactive Member Role/Relationship Status Dates Jose Revelesdiane DO Primary Care Provider Active St art: February 28, 2025 End: February 28hmad Sedrick , MDAttending ProviderActiveStart: February 28, 2025 End: February 28, 2025 Team Status: Inactive Member Role/Relationship Status Dates Jose Bonifacio Primary Care Provider Active St art: April 18, 2025 End: April 18, 2025Ramandeep Otto APRN-FNP-CAttending ProviderActive Start: April 18, 2025 End: April 18, 2025 Team Status: Inactive Member Role/Relationship Status Dates Joseida Valdovinos DO Primary Care Provider Active St art: April 18, 2025 End: April 18, 2025Jose Valdovinos DOAttending ProviderActiveStart: April 18, 2025 End: April 18, 2025 Team Status: Inactive Member Role/Relationship Status Dates Joseida Valdovinos DO Primary Care Provider Active St art: April 24, 2025 End: April 24jamie Carson DOAttending ProviderActiveStart: April 24, 2025 End: April 24, 2025Team MemberRelationshipSpecialtyStart DateEnd Date Jose Valdovinos MD [address] [place] [phone] PCP - GeneralFamily Medicine10/29/23 Kristi Blake PA [address] [facility] [address] [place] [id number] Physician AssistantNeurology09/08/24 Team Status: Inactive Member Role/Relationship Status Dates Jose Valdovinos DO Primary Care Provider Active St art: May 01, 2025 End: May 01, 2025Jose Valdovinos DOAttending ProviderActiveStart: May 01, 2025 End: May 01, 2025 Reason for Visit (unrecogniz ed section and content) ReasonCommentsFollow-up8 month essential hypertensionSpecialtyDiagnoses / ProceduresReferred By ContactReferred To ContactCardiology Diagnoses Essential hypertension Procedures Follow Up In Cardiology Danisha Bran MD [address] [facility] [address], [address] [address] Phone: tel: fax: Danisha Bran MD [address] [facility] [address], [address] [address] Phone: tel: fax: Referral IDStatusReasonStart DateExpiration DateVisits RequestedVisits [id number]/24/20251/24/[id number]wzkrbu LegsSpecialtyDiagnoses / ProceduresReferred By ContactReferred To Contact Diagnoses Chronic daily headache Cervical radiculopathy Degenerative disc disease, cervical Procedures Trigger Point Injection: right cervical paraspinals, left cervical paraspinals, right upper trapezius, left upper trapezius Ewa Rodriguez PA [address] [place] [id number] Referral IDStatusReasonStart DateExpiration DateVisits RequestedVisits [id number]/2/202410/[id number] UpReasonComments New PatientReasonOnset DateCommentsCoPat Stop2ReasonCommentsPost OpSx: 08/16/2021, 2ReasonCommentsPatient QuestionReasonCommentsPatient EducationSpecialtyDiagnoses / ProceduresReferred By ContactReferred To Contact Diagnoses Pre-op testing Procedures REFER TO PACC - PRE ANESTHESIA CONSULTATION CLINIC OFFICE/OUTPATIENT [facility] HIGH MDM 60-74 MINUTES Christine Gutierrez PA-C [address] [place] [address] Referral IDStatusReasonStart DateExpiration DateVisits RequestedVisits [id number] PCP Requested Referral /[id number] DateCommentsRefill Bvqqsda24/21/2022Reason CommentsHome CareReasonCommentsPost OpRadiculopathy, lumbar regionReasonOnset KjddOagayuyiMkray69/15/2022ReasonCommentsEstablished PatientAlteration in skin integrity related to surgical incisionReasonCommentsOrdersReasonCommentsWound CheckReasonOnset DateCommentsRefill Bqrmgaw61/07/2022ReasonCommentsLab report ReasonCommentscreatinine levelReasonOnset DateCommentsRefill Ywngaxh6603/12/2022 ReasonCommentsReceived Outside Medical RecordsReasonCommentsLab OrdersReason Onset DateCommentsWound Care2ReasonCommentsEstablished PatientWound checkReasonCommentsFormsPOC from [facility] requesting signatureReasonComments Preparations For ProceduresReasonCommentsFollow-fw8faLbodufPyrkrssyZipjhmjve MRI SpecialtyDiagnoses / ProceduresReferred By ContactReferred To ContactMR IMAGING Diagnoses Chronic left-sided low back pain with left-sided sciatica Procedures MRI LUMBAR SPINE WO IVCON MRI, LUMBAR SPINE Nemunaitis, Gilmar Milton MD [address] [place] [address] Mr Imaging [facility] Referral IDStatusReasonStart DateExpiration DateVisits RequestedVisits [id number] Auto-Generated Referral /[id number] DateCommentsMed prior to MRI4ReasonOnset DateCommentsMed Zswlyc544ReasonCommentsResultsReasonCommentsPatient QuestionReasonCommentsFollow-sz7eHzkrxfhl IDStatusReasonStart DateExpiration DateVisits RequestedVisits [id number]/1/74264/[id number] CommentsPreperations for ProcedureMychartReasonCommentsRadiology CTReason CommentsPreperations for Procedure CallReasonCommentsCancel injection for today ReasonCommentsPost Injection QuestionsReasonCommentsMed RefillReasonComments Trigger Point InjectionsReasonCommentsFollow UpPt states that lower back pain has increased. States he had a fall that made it worseReasonOnset DateComments Medication Mtvurvy1812/01/2024ReasonOnset MghnEiyofzxfZYP60/11/2025Specialty Diagnoses / ProceduresReferred By ContactReferred To ContactNEUROLOGICAL INSTITUTE Diagnoses Lumbar radiculopathy Procedures EMG(NEURO/NI) NERVE CONDUCTION STUDIES 9-10 STUDIES Loyda Steele MD [address] [place] [address] Phone: tel: fax: Neurology [address] [place] [address] Phone: tel: Referral IDStatusReasonStart DateExpiration DateVisits RequestedVisits [id number] Auto-Generated Referral /[id number] QuestionCare Coordinator - OtherReason CommentsFollow UpLumbar radiculopathy, EMG resultsReasonCommentsMedication RequestReasonCommentsTesticular HypofunctionFollow-upLABReasonCommentsPain Goals (unrecognized section and content) Goals may [...] BE BASED ON THE PRIMARY CLINICAL RECORDS. [facility]. provides no warranty or guarantee of the accuracy or completeness of information in this document.
--- NOTE | 2025-05-31 11:19 | PM.CN ---
Consult Note: HPI Data of Consult Patient: known to practice within the last 3 years Consult date: 05/31/25 Requesting Physician: Justyna Martinez NP Primary Care Provider: JOSE RAY Consult Narrative Reason for consult: f/u Narrative: 64 year old male presents for evaluation and management of chronic low back pain. Pain today 7/10 increases to 10/10 with activity standing walking and lifting, improves with sitting. Patient finding mild to mild benefit from current medication regimen. Has completed sword PT at home greater than 6 weeks without improvement. continues to f/u with neurology and neurosurgery, pending additional lumbar surgery with Dr Banks. patient finding benefit to robaxin, lyrica, hydrocodone-acetaminophen, duloxetine. cc:: CC: Justyna Martinez NP Review of Systems ROS Musculoskeletal Reports: back pain and extremity pain PFSH PFSH Medical History Heartburn ?R12 - Heartburn (ICD-10) Low back pain ?M54.50 - Low back pain, unspecified (ICD-10) Numbness and tingling ?R20.0 - Anesthesia of skin (ICD-10) ?R20.2 - Paresthesia of skin (ICD-10) Anxiety ?F41.9 - Anxiety disorder, unspecified (ICD-10) Stroke ?I63.9 - Cerebral infarction, unspecified (ICD-10) Acid reflux ?K21.9 - Gastro-esophageal reflux disease without esophagitis (ICD-10) Enlarged prostate ?N40.0 - Benign prostatic hyperplasia without lower urinary tract symptoms (ICD-10) Kidney stone ?N20.0 - Calculus of kidney (ICD-10) Sleep apnea ?G47.30 - Sleep apnea, unspecified (ICD-10) High cholesterol ?E78.00 - Pure hypercholesterolemia, unspecified (ICD-10) Hypertension ?I10 - Essential (primary) hypertension (ICD-10) Surgical History S/P lumbar spine operation ?Z98.890 - Other specified postprocedural states (ICD-10) S/P shoulder replacement ?Z96.619 - Presence of unspecified artificial shoulder joint (ICD-10) S/P carpal tunnel release ?Z98.890 - Other specified postprocedural states (ICD-10) Hx of total knee arthroplasty ?Z96.659 - Presence of unspecified artificial knee joint (ICD-10) Meds Home Medications and Allergies Home Medications ?Medication ?Instructions ?Recorded ?Confirmed ?Type atorvastatin 80 mg tablet 80 mg PO QDAY 12/18/22 11/14/24 History biotin 1 mg capsule 1 mg PO DAILY 12/18/22 11/14/24 History clopidogrel 75 mg tablet 75 mg PO QDAY 12/18/22 11/14/24 History dicyclomine 20 mg tablet 20 mg PO QID PRN abdominal pain 12/18/22 11/14/24 History doxazosin 4 mg tablet 4 mg PO QDAY 12/18/22 11/14/24 History duloxetine 30 mg capsule,delayed 60 mg PO BID 12/18/22 11/14/24 History release (Cymbalta) finasteride 5 mg tablet 5 mg PO QDAY 12/18/22 11/14/24 History fluticasone propionate 50 1 spray intranasal QAM 12/18/22 11/14/24 History mcg/actuation nasal spray,suspension furosemide 40 mg tablet 40 mg PO QDAY 12/18/22 11/14/24 History metoprolol succinate 50 mg 50 mg PO QDAY 12/18/22 11/14/24 History tablet,extended release 24 hr multivitamin (Daily Multi-Vitamin 1 tab PO DAILY 12/18/22 11/14/24 History tablet) nortriptyline 50 mg capsule 50 mg PO QDAY 12/18/22 11/14/24 History omeprazole 40 mg capsule,delayed 40 mg PO QDAY 12/18/22 11/14/24 History release Held on 02/23/23. Instructions: pt preference potassium chloride 20 mEq 20 meq PO QDAY 12/18/22 11/14/24 History tablet,extended release(part/cryst) (Klor-Con M) pregabalin 200 mg capsule 200 mg PO TID 12/18/22 11/14/24 History promethazine 25 mg tablet 12.5 mg PO QDAY 12/18/22 11/14/24 History telmisartan 80 mg tablet (Micardis) 80 mg PO DAILY 12/18/22 11/14/24 History testosterone cypionate 200 mg/mL 200 mg IM Q14D 12/18/22 11/14/24 History intramuscular oil valacyclovir 500 mg tablet 500 mg PO Q12H PRN unknown 12/18/22 11/14/24 History ydnlvf-jdnumraz-nfelntf 18,000 cap PO 10/15/23 History (pork)6,000-19,000-30,000 unit capsule,del rel (Creon) semaglutide 0.25 mg or 0.5 mg (2 0.25 mg subcut QWEEK 10/15/23 11/14/24 History mg/3 mL) subcutaneous pen injector (Ozempic) methocarbamol 500 mg tablet See Rx Instructions .Route 03/29/24 11/14/24 Rx .COMPLEX #180 tabs hydrocodone 5 mg-acetaminophen 325 1 tab PO TID PRN pain #90 tabs 08/30/24 11/14/24 Rx mg tablet methocarbamol 1,000 mg tablet 1,000 mg PO TID #90 tabs 10/27/24 11/14/24 Rx fremanezumab-vfrm 225 mg/1.5 mL mg subcut 11/14/24 History subcutaneous auto-injector (Ajovy) hydrocodone 7.5 mg-acetaminophen 1 tab PO TID PRN pain #90 tabs 12/01/24 Rx 325 mg tablet hydrocodone 7.5 mg-acetaminophen 1 tab PO TID PRN pain #90 tabs 12/28/24 Rx 325 mg tablet methocarbamol 500 mg tablet See Rx Instructions .Route 12/28/24 Rx .COMPLEX PRN spasms #180 tabs hydrocodone 7.5 mg-acetaminophen 1 tab PO TID PRN pain #90 tabs 01/30/25 Rx 325 mg tablet hydrocodone 7.5 mg-acetaminophen 1 tab PO TID PRN pain #90 tabs 02/23/25 Rx 325 mg tablet hydrocodone 7.5 mg-acetaminophen 1 tab PO TID PRN pain #90 tabs 03/23/25 Rx 325 mg tablet hydrocodone 7.5 mg-acetaminophen 1 tab PO TID PRN pain #90 tabs 04/25/25 Rx 325 mg tablet methocarbamol 500 mg tablet See Rx Instructions .Route 04/25/25 Rx .COMPLEX #180 tabs Allergies Allergy/AdvReac Type Severity Reaction Status Date / Time Penicillins Allergy Intermediate Swelling Verified 11/14/24 08:37 of Lip/Tongue/Throat latex Allergy Mild ITCHING Verified 11/14/24 08:37 Exam Constitutional Documenting provider has reviewed patient's vital signs: yes Common normals: no apparent distress, oriented x3 and alert General appearance: cooperative Other: significant hyperalgesia to lumbar spine HENMT Common normals: normocephalic, hearing grossly normal bilaterally and moist oral mucous membranes Head and scalp: normocephalic Eye Common normals: PERRL Pupil: PERRL Neck & C-Spine Common normals: full ROM General: normal visual inspection Chest Common normals: inspection of chest normal Respiratory Common normals: normal respiratory effort, no retractions and no use of accessory muscles Back & Pelvis Lumbar spine/lower back: ROM limited and pain with ROM Sacroiliac joints: SI joints normal Other: decreased sensation to left L4,5,S1 left sij negative leodan(patricks), gaenslens, thigh thrust, compression test strength 4/5 in LLE Extremity Common normals: normal to inspection and full ROM Neuro Common normals: oriented x3 Sensorium/orientation: alert Psych Common normals: mental status grossly normal, thought process normal, cooperative, affect normal, speech normal and activity/motor behavior normal Speech: normal speech Thought process: normal thought process Results Additional Findings Additional findings: If on a controlled substance or opioids, I have checked an [place] report on this patient and there are no aberrancies noted in the prescribing history.??If on a controlled substance or opioid a drug screen was completed and reviewed within the last year, and if there has not been a drug screen completed we ordered one today to monitor higher risk, state monitored pain medication use. As part of providing excellent, safe, comprehensive care, the following was completed at our patient's visit: 1. A medication reconciliation and review to ensure accurate knowledge of current/active medications, including asking our patients to inform us about any [id number] medications or herbal remedies/nutritional supplements/alternative remedies. 2. A review to specifically ensure our patients have had annual screening for screening for depression, screening for tobacco use, and screening for unhealthy alcohol use. For concerning screenings had a discussion with the patient, provided patient education, and recommended follow-up with primary care provider when appropriate. If patient noted with a risk of falling, they received education on strength, gait, and balance training to prevent future risk of falling. Portions of this note may have been carried over from the previous visit and updated as appropriate. Please note this office utilizes paper charting in addition to the electronic medical record. A list of current medications, vitals, and PMH is available there as the clinical staff outside of myself do not have access to [employer] charting during the clinic day operations. As part of providing quality comprehensive care the current medications, vitals, and PMH were reviewed in the paper chart. Assessment and Plan Assessment and Plan (1) Lumbar radiculopathy: (2) Sacroiliitis: (3) Failed back syndrome: (4) Myalgia, other site: (5) Encounter for long-term use of opiate analgesic: Assessment and Plan: I feel these medications are improving the patient's quality of life and allow them to tolerate activities of daily living as well as participate in recreational activity.? The patient does not report intolerable side effects. The patient is NOT opioid naive and non-pharmacologic and non-opioid treatment has failed to significantly relieve the patient's pain and improve functionality. The patient has a diagnosis that is related to a somatic or visceral pain etiology. ? ?? I reviewed with the patient the potential risks and side effects with the use of? opioid medications including but not limited to respiratory depression,? sedation, and even . Within the last 12 months I have verified the patient has access to naloxone should? these effects occur. The patient was advised to let? their family know they had Naloxone in case they would need to administer? the medication. I advised the patient to avoid the use of any other? sedation substances including alcohol, THC, and benzodiazepines while? taking opioid medications due to the risk of compounding side effects and? detrimental outcomes. within the last 12 months I have reviewed the [employer], pain treatment agreement and urine drug screen.? ?? A drug screen was completed within the last year, and no aberrancies were noted regarding their use of controlled substances. The patient understands they are subject to the terms and conditions of the pain contract that they have signed. ? ?? I have checked an [place] report on this patient today and there are no aberrancies noted in the prescribing history.? notes moderate relief for 4-5 hours after each dose with improvement in ability to tolerate ADLs, bathing, housework (6) Myofascial pain: (7) Chronic, continuous use of opioids: (8) Lumbar spondylosis: Plan request NS consult notes. i did review with him today he is to stop norco through our office if prescribed post op pain medication by NS team. pt to f/u with them until cleared, then can resume medications through our office continue robaxin 500-1000mg TID PRN pain/spasms continue hydrocodone-acetaminophen 7.5-325mg TID PRN moderate to severe pain, notes moderate relief for 4-5 hours without side effects continue HEP as tolerated f/u 3 months, sooner if needed
== END 2025-05-31 10:51 | disposition home or self-care (01) ==
LOC: PM 10:51
PROVIDERS: PCP Family Medicine; Visit Provider Nurse Practitioner
DX: M54.16 Radiculopathy, lumbar region (principal); M46.1 Sacroiliitis, not elsewhere classified; M96.1 Postlaminectomy syndrome, not elsewhere classified; M79.18 Myalgia, other site; Z79.891 Long term (current) use of opiate analgesic; M79.10 Myalgia, unspecified site; M47.816 Spondylosis without myelopathy or radiculopathy, lumbar region
CPT/HCPCS: G0463